=== PATIENT | female | born 1970 | race Caucasian/White ===

== ENCOUNTER 2017-10-15 15:53 | Emergency (ER) | payer OTHER ==
--- OUTSIDE RECORDS SUMMARY | 2017-10-15 15:55 | XMS REPORT ---
:1970 [facility] [address] [place] [address] Care Team Providers Name Role Phone DR EDGARD CASH Unavailable Unavailable BLAKE ALLEN - Unavailable Unavailable RADHA DELVALLE Unavailable Unavailable Problems This patient has no known problems. Allergies, Adverse Reactions, Alerts This patient has no known allergies or adverse reactions. Medications This patient has no known medications. Encounters Start End Encounter Admission Attending Care Care Encounter Date/Time Date/Time Type Type Clinicians Facility Department ID 2016-11-04 Inpatient C NARESH CASH [facility] [id number] 09:30:00 EDGARD 2016-07-15 2016-07-19 Inpatient 1 HARSHIL ALLEN [facility] [id number] 18:47:00 10:30:00 BLAKE 2013-11-19 2013-11-19 Emergency E MOOK [facility] [id number] 10:08:00 12:55:00 RADHA Results Test Description Test Time Test Comments Text Results Atomic Results Result Comments CT ABDOMEN/PELVIS WITH 2016-07-26 14:26:[address] [id number] IMAGING REPORTPatient Name: Manuel DEL TORO of Service: [id number]: 45 Sex: F Order #: [id number] Room: ERSDOB: 1970 X-Ray Number: [id number] Record Number: [id number] Hospital Number: [id number] Physician: KISHAN MUNOZ -Ordering Physician: HERNANDEZ MONTEMAYOR ABDOMEN AND PELVIS WITH CONTRAST:CLINICAL HISTORY: Left-sided abdominal pain for 2 weeks; nausea andvomiting; history of bowel resection and hysterectomy; pain pumpTECHNIQUE: Examination is performed following intravenous administration of100 mL of Isovue-300. 4 mm axial sections were obtained with coronal andsagittal reconstructions. The GFR is 115 .FINDINGS: Lung bases are clear although they're mildly hyperinflated.The enhanced liver, spleen, pancreas and adrenal glands are unremarkable.There is bilateral unobstructed renal function noted as seen previously. Aprominent cyst in the left kidney.There are clips in the gallbladder fossa consistent with the previouscholecystectomy.There are postoperative changes seen in the right lower quadrant near thececum. Fluid and fecal material are seen in the ascending colon. This isnonspecific.The bowel loops are unobstructed.The focal wall thickening of the descending colon noted on 16 July 2016has resolved in the interval.Impression:1. No acute changes are demonstrated.2. The changes of colitis noted on 16 July 2016 in the descending colonhave resolved in the interval.Electronically Signed By: Santiago Alonzo M.D., 07/26/2016 2:23 PMLegally authenticated by TIFFANIE Syed 2016-07-26 14:23:48 CT ABDOMEN/PELVIS 2016-07-17 02:49:00 [address] IMAG[address] REPORTPatient Name: Manuel DEL TORO of Service: [id number]: 45 Sex: F Order #: [id number] Room: [facility] 2NEDOB: 1970 X-Ray Number: [id number] Record Number: [id number] Hospital Number: [id number] Physician: BLAKE ALLEN -Ordering Physician: AURORA LOWERY abdomen and pelvis without IV contrast, with GI contrast 1842 hours07/16/2016HISTORY: Abdominal pain with nausea, history of Crohn's disease, multipleprior surgeriesCOMPARISON: NoneFINDINGS: Evaluation is limited and difficult.Minimal scattered free fluid is present. There may be mildscattered/diffuse mesenteric edema. There is no free air. There is no bowelobstruction. Mild/moderate colonic wall thickening is present, mainlyinvolving descending and sigmoid colon, suggesting colitis. No abscess isseen. Much of the small bowel has been removed.There is no urinary dilation. The gallbladder is absent there is anabdominal wall pain pump. Liver and spleen are normal size.IMPRESSION:1. Minimal free fluid, a nonspecific finding2. There is distal colitis. The appearance is nonspecific.Electronically Signed By: Sylvain Galo M.D., 07/17/2016 2:47 AMLegally authenticated by MARTINEZ VALDEZ 2016-07-17 02:47:19 ABDOMEN 2 VIEWS 2016-07-15 12:14:[address] [id number] IMAGING REPORTPatient Name: Manuel DEL TORO of Service: [id number]: 45 Sex: F Order #: [id number] [facility] 1970 [facility] Number: [id number] Record Number: [id number] Hospital Number: [id number] Physician: Austin TEJEDA Physician: Elvis GARCIA 2 views 07/15/2016 at 11:40 AM.History: 45-year-old female. Abdominal pain. Left upper quadrant pain.History of Crohn's disease. Previous cholecystectomy, hysterectomy andintestinal surgery.Comparison: No comparison exam is available.Findings:A total of 4 images are submitted.There are cholecystectomy clips in the right upper quadrant. There is anintrathecal catheter with a reservoir projecting over the right ilium.There is very little feces in the colon. There are several loops ofair-filled, mildly prominent small bowel with a few air-fluid levels. Thisis probably related to ileus but recommend follow-up to rule out adeveloping obstruction. There are calcifications but they are felt to bevascular. The regional skeleton is intact. The lung bases are clear.Impression:1. Probable ileus.2. However, recommend follow-up as clinically warranted to rule out adeveloping obstruction.Electronically Signed By: Raymond James M.D., 07/15/2016 12:12 PMLegally authenticated by RAFA GALVAN 2016-07-15 12:12:28
--- OUTSIDE RECORDS SUMMARY | 2017-10-15 15:55 | XMS REPORT | Clinical Summary ---
:1970 Author Organization [facility] Address [address] [place] [address] Care Team Providers Name Role Phone Eryn Wall MD Primary Care Provider Allergies Active Allergy Reactions Severity Noted Date Comments Ciprofloxacin Swelling Medium 07/18/2017 Promethazine Other (See Comments) 07/18/2017 Face twitch Current Medications Prescription Sig. Disp. Refills Start Date End Date Status pantoprazole Take 40 mg by Active (PROTONIX) 40 MG EC mouth daily. tablet budesonide (UCERIS) Take 9 mg by Active 9 mg tablet, delayed mouth daily as & ext.release needed. methocarbamol Take 500 mg by Active (ROBAXIN) 500 MG mouth every 6 tablet (six) hours. mesalamine (LIALDA) Take 1.2 g by Discontinued 1.2 gram EC tablet mouth daily 8 with breakfast. 2 tablets by mouth metroNIDAZOLE Take 1 tablet 30 tablet 0 07/21/2017 (FLAGYL) 500 MG (500 mg total) 8 tablet by mouth 3 (three) times a day for 10 days. metroNIDAZOLE Take 500 mg by Discontinued (FLAGYL) 500 MG mouth 3 8 tablet (three) times a day. LORAZepam (ATIVAN) 1 Take 1 mg by Discontinued MG tablet mouth 2 (two) 8 times a day as needed for anxiety. LORAZepam (ATIVAN) 1 Take 1 tablet 20 tablet 0 08/22/2017 MG tablet (1 mg total) 8 by mouth every 6 (six) hours as needed for anxiety for up to 20 doses. mesalamine (LIALDA) Take 2 tablets 60 tablet 0 08/23/2017 1.2 gram EC tablet (2.4 g total) 8 by mouth daily with breakfast for 30 days. prednisoLONE ODT Take 4 tablets 112 tablet 0 08/22/2017 (ORAPRED ODT) 10 MG (40 mg total) 8 disintegrating by mouth 2 tablet (two) times a day for 14 days. Active Problems Problem Noted Date Abdominal pain 08/19/2017 Small bowel obstruction 08/14/2017 Colitis presumed infectious 07/19/2017 Encounters Date Type Specialty Care Team Description 08/19/2017 - Hospital Encounter General Internal Eryn Wall 08/22/2017 Raz Mchugh MD 08/14/2017 - Hospital Encounter General Internal Eryn Wlal Small bowel 08/18/2017 Raz Mchugh MD obstruction (Primary Dx) 07/18/2017 - Hospital Encounter General Internal Eryn Wall Colitis presumed 07/21/2017 Raz Mchugh MD infectious (Primary Dx) after 10/14/2016 Social History Tobacco Use Types Packs/Day Years Used Date Never Smoker Smokeless Tobacco: Never Used Alcohol Use Drinks/Week oz/Week Comments No Sex Assigned at Date Recorded Not on file Last Filed Vital Signs Vital Sign Reading Time Taken Blood Pressure 134/83 08/22/2017 11:30 AM CDT Pulse 82 08/22/2017 11:30 AM CDT Temperature 36.9 C (98.5 F) 08/22/2017 11:30 AM CDT Respiratory Rate 18 08/22/2017 11:30 AM CDT Oxygen Saturation 97% 08/22/2017 11:30 AM CDT Inhaled Oxygen Concentration - - Weight 52.2 kg (115 lb) 08/22/2017 4:54 AM CDT Height 158.8 cm (5' 2.5") 08/16/2017 8:32 AM CDT Body Mass Index 20.7 08/22/2017 4:54 AM CDT Plan of Treatment Health Maintenance Due Date Last Done Comments CERVICAL CANCER SCREENING 09/13/1992 INFLUENZA VACCINE 11/29/2017 Implants Implanted Type Area Shirring Tender Device Identifier Expiration Date Model / Serial / Lot Pain Pump-07/18/2009 Implanted: 07/18/2009 (Quantity not on file) Procedures Procedure Name Priority Date/Time Associated Comments Diagnosis ESTIMATED GFR Routine 08/22/2017 5:35 Results for this AM CDT procedure are in the results section. MAGNESIUM LEVEL Routine 08/22/2017 5:35 Results for this AM CDT procedure are in the results section. COMPREHENSIVE METABOLIC Routine 08/22/2017 5:35 Results for this PANEL AM CDT procedure are in the results section. HC COMPLETE BLD COUNT Routine 08/22/2017 5:35 Results for this W/AUTO DIFF AM CDT procedure are in the results section. ESTIMATED GFR Routine 08/21/2017 4:10 Results for this AM CDT procedure are in the results section. CRP HIGH SENSITIVITY Routine 08/21/2017 4:10 Results for this AM CDT procedure are in the results section. SEDIMENTATION RATE Routine 08/21/2017 4:10 Results for this AM CDT procedure are in the results section. BASIC METABOLIC PANEL Routine 08/21/2017 4:10 Results for this AM CDT procedure are in the results section. ESTIMATED GFR Routine 08/18/2017 3:50 Results for this AM CDT procedure are in the results section. BASIC METABOLIC PANEL Routine 08/18/2017 3:50 Results for this AM CDT procedure are in the results section. OCCULT BLOOD, STOOL Routine 08/17/2017 9:30 Results for this AM CDT procedure are in the results section. ESTIMATED GFR Routine 08/17/2017 3:50 Results for this AM CDT procedure are in the results section. MAGNESIUM LEVEL Routine 08/17/2017 3:50 Results for this AM CDT procedure are in the results section. COMPREHENSIVE METABOLIC Routine 08/17/2017 3:50 Results for this PANEL AM CDT procedure are in the results section. HC COMPLETE BLD COUNT Routine 08/17/2017 3:50 Results for this W/AUTO DIFF AM CDT procedure are in the results section. XR ABDOMEN 1 VW Routine 08/16/2017 12:25 Results for this PM CDT procedure are in the results section. ESTIMATED GFR Routine 08/16/2017 5:30 Results for this AM CDT procedure are in the results section. MAGNESIUM LEVEL Routine 08/16/2017 5:30 Results for this AM CDT procedure are in the results section. COMPREHENSIVE METABOLIC Routine 08/16/2017 5:30 Results for this PANEL AM CDT procedure are in the results section. HC COMPLETE BLD COUNT Routine 08/16/2017 5:30 Results for this W/AUTO DIFF AM CDT procedure are in the results section. ESTIMATED GFR Routine 08/15/2017 5:20 Results for this AM CDT procedure are in the results section. COMPREHENSIVE METABOLIC Routine 08/15/2017 5:20 Results for this PANEL AM CDT procedure are in the results section. HC COMPLETE BLD COUNT Routine 08/15/2017 5:20 Results for this W/AUTO DIFF AM CDT procedure are in the results section. GASTROINTESTINAL PANEL Routine 08/15/2017 3:40 Results for this AM CDT procedure are in the results section. ESTIMATED GFR Routine 07/21/2017 3:53 Results for this AM CDT procedure are in the results section. BASIC METABOLIC PANEL Routine 07/21/2017 3:53 Results for this AM CDT procedure are in the results section. HC COMPLETE BLD COUNT Routine 07/21/2017 3:53 Results for this W/AUTO DIFF AM CDT procedure are in the results section. CLOSTRIDIUM DIFFICILE Routine 07/19/2017 7:50 Results for this TOXIN PM CDT procedure are in the results section. C-REACTIVE PROTEIN Routine 07/19/2017 10:08 Results for this AM CDT procedure are in the results section. SEDIMENTATION RATE Routine 07/19/2017 10:08 Results for this AM CDT procedure are in the results section. ESTIMATED GFR Routine 07/19/2017 5:30 Results for this AM CDT procedure are in the results section. HC COMPLETE BLD COUNT Routine 07/19/2017 5:30 Results for this W/AUTO DIFF AM CDT procedure are in the results section. BASIC METABOLIC PANEL Routine 07/19/2017 5:30 Results for this AM CDT procedure are in the results section. after 10/14/2016 Results Estimated GFR (08/22/2017 5:35 AM)Only the most recent of8 resultswithin the time period is included. GFR Non Af Amer >90 mL/min/1.73 m2 [facility] DEPARTMENT OF PATHOLOGY AND GENOMIC MEDICINE GFR Af Amer >90 mL/min/1.73 m2 [facility] DEPARTMENT OF Comment: PATHOLOGY AND GENOMIC Chronic kidney disease: <60 mL/min/1.73m2 MEDICINE Kidney failure: <15 mL/min/1.73m2 The estimated GFR is calculated from the IDMS-traceable Modification of Diet in Renal Disease Equation. The accuracy of the calculation is poor when the creatinine is normal. Calculated values >90 mL/min/1.73m2 are not reported. This equation has not been validated in children (<18 years), women, the elderly (>70 years), or ethnic groups other than Caucasians and Americans. Specimen Plasma specimen Performing Organization Address City/State/Zipcode Phone Number [facility] DEPARTMENT OF PATHOLOGY [address] [place] [phone] AND [employer] [facility] CBC with platelet and differential (08/22/2017 5:35 AM)Only the most recent of6 resultswithin the time period is included. WBC 7.1 4.5 - 11.0 k/uL [facility] DEPARTMENT OF PATHOLOGY AND GENOMIC MEDICINE RBC 3.78 (L) 4.20 - 5.50 m/uL [facility] DEPARTMENT OF PATHOLOGY AND GENOMIC MEDICINE HGB 11.9 (L) 12.0 - 16.0 g/dL [facility] DEPARTMENT OF PATHOLOGY AND GENOMIC MEDICINE HCT 35.9 (L) 37.0 - 47.0 % [facility] DEPARTMENT OF PATHOLOGY AND GENOMIC MEDICINE MCV 95.0 82.0 - 100.0 fL [facility] DEPARTMENT OF PATHOLOGY AND GENOMIC MEDICINE MCH 31.5 27.0 - 34.0 pg [facility] DEPARTMENT OF PATHOLOGY AND GENOMIC MEDICINE MCHC 33.1 31.0 - 37.0 g/dL [facility] DEPARTMENT OF PATHOLOGY AND GENOMIC MEDICINE RDW - SD 43.0 37.0 - 55.0 fL [facility] DEPARTMENT OF PATHOLOGY AND GENOMIC MEDICINE MPV 9.3 6.9 - 11.0 fL [facility] DEPARTMENT OF PATHOLOGY AND GENOMIC MEDICINE Platelet count 230 150 - 400 K/uL [facility] DEPARTMENT OF PATHOLOGY AND GENOMIC MEDICINE Nucleated RBC 0.00 /100 WBC [facility] DEPARTMENT OF PATHOLOGY AND GENOMIC MEDICINE Neutrophils 77.2 (H) 39.0 - 69.0 % [facility] DEPARTMENT OF PATHOLOGY AND GENOMIC MEDICINE Lymphocytes 18.6 (L) 25.0 - 45.0 % [facility] DEPARTMENT OF PATHOLOGY AND GENOMIC MEDICINE Monocytes 3.8 0.0 - 10.0 % [facility] DEPARTMENT OF PATHOLOGY AND GENOMIC MEDICINE Eosinophils 0.0 0.0 - 5.0 % [facility] DEPARTMENT OF PATHOLOGY AND GENOMIC MEDICINE Basophils 0.1 0.0 - 1.0 % [facility] DEPARTMENT OF PATHOLOGY AND GENOMIC MEDICINE Immature granulocytes 0.3 0.0 - 1.0 % [facility] DEPARTMENT OF PATHOLOGY AND GENOMIC MEDICINE Specimen Blood Performing Organization Address City/State/Zipcode Phone Number [facility] DEPARTMENT OF PATHOLOGY [address] [place] [address] AND [facility] Magnesium level (08/22/2017 5:35 AM)Only the most recent of3 resultswithin the time period is included. Magnesium 1.8 1.6 - 2.6 mg/dL [facility] DEPARTMENT OF PATHOLOGY AND GENOMIC MEDICINE Specimen Plasma specimen Performing Organization Address City/State/Zipcode Phone Number [facility] DEPARTMENT OF PATHOLOGY [address] [place] [address] AND [employer] [facility] Comprehensive metabolic panel (08/22/2017 5:35 AM)Only the most recent of4 resultswithin the time period is included. Sodium 141 135 - 148 mEq/L [facility] DEPARTMENT OF PATHOLOGY AND GENOMIC MEDICINE Potassium 4.2 3.5 - 5.0 mEq/L [facility] DEPARTMENT OF PATHOLOGY AND GENOMIC MEDICINE Chloride 101 98 - 112 mEq/L [facility] DEPARTMENT OF PATHOLOGY AND GENOMIC MEDICINE CO2 26 24 - 31 mEq/L [facility] DEPARTMENT OF PATHOLOGY AND GENOMIC MEDICINE Anion gap 14 7 - 15 mEq/L [facility] DEPARTMENT OF Comment: PATHOLOGY AND GENOMIC Starting from July , anion gap calculation MEDICINE no longer incorporates potassium. Please note the change. BUN 8 6 - 20 mg/dL [facility] DEPARTMENT OF PATHOLOGY AND GENOMIC MEDICINE Creatinine 0.6 0.5 - 0.9 mg/dL [facility] DEPARTMENT OF PATHOLOGY AND GENOMIC MEDICINE Glucose 119 (H) 65 - 99 mg/dL [facility] DEPARTMENT OF PATHOLOGY AND GENOMIC MEDICINE Calcium 8.9 8.3 - 10.2 mg/dL [facility] DEPARTMENT OF PATHOLOGY AND GENOMIC MEDICINE Protein 6.2 (L) 6.3 - 8.3 g/dL [facility] DEPARTMENT OF PATHOLOGY AND GENOMIC MEDICINE Albumin 3.6 3.5 - 5.0 g/dL [facility] DEPARTMENT OF PATHOLOGY AND GENOMIC MEDICINE A/G ratio 1.4 0.7 - 3.8 [facility] DEPARTMENT OF PATHOLOGY AND GENOMIC MEDICINE Alkaline phosphatase 63 35 - 104 U/L [facility] DEPARTMENT OF PATHOLOGY AND GENOMIC MEDICINE AST 22 10 - 35 U/L [facility] DEPARTMENT OF PATHOLOGY AND GENOMIC MEDICINE ALT 44 5 - 50 U/L [facility] DEPARTMENT OF PATHOLOGY AND GENOMIC MEDICINE Total bilirubin <0.2 0.2 - 1.2 mg/dL [facility] DEPARTMENT OF PATHOLOGY AND GENOMIC MEDICINE Specimen Plasma specimen Performing Organization Address City/State/Zipcode Phone Number [facility] DEPARTMENT OF PATHOLOGY [address] [place] [address] AND [employer] MEDICINE Sedimentation rate (08/21/2017 4:10 AM)Only the most recent of2 resultswithin the time period is included. Sedimentation rate 21 (H) 0 - 20 mm/hr [facility] DEPARTMENT OF PATHOLOGY AND GENOMIC MEDICINE Specimen Blood Performing Organization Address City/State/Zipcode Phone Number [facility] DEPARTMENT OF PATHOLOGY [address] [place] [address] AND [facility] CRP high sensitivity (08/21/2017 4:10 AM) CRP, high sensitivity 0.47 mg/L [facility] DEPARTMENT OF Comment: PATHOLOGY AND [facility] Please note this test is different from the C-Reactive Protein MEDICINE (CRP) assay. CRP is a nonspecific marker of inflammation and its levels rise in the presence of conditions such as infection and inflammatory disorders. Persistent low levels of CRP can be measured with a high-sensitivity assay (hsCRP) andare associated with increased risks for atherosclerotic diseases. High-Sensitivity CRP (hsCRP) results are used to assign risk for stroke, acute myocardial infarction and peripheral vascular disease as follows: Low risk: < 1.00 mg/L Average risk: 1.00 - 3.00 mg/L High risk: > 3.00 - 10.00 mg/L Indeterminate: > 10.00 mg/L * *May be indicative of another source of inflammation or infection Specimen Plasma specimen Performing Organization Address City/State/Zipcode Phone Number [facility] DEPARTMENT OF PATHOLOGY AND [address] [place] [address] [facility] Basic metabolic panel (08/21/2017 4:10 AM)Only the most recent of4 resultswithin the time period is included. Sodium 143 135 - 148 mEq/L [facility] DEPARTMENT OF PATHOLOGY AND GENOMIC MEDICINE Potassium 3.8 3.5 - 5.0 mEq/L [facility] DEPARTMENT OF PATHOLOGY AND GENOMIC MEDICINE Chloride 106 98 - 112 mEq/L [facility] DEPARTMENT OF PATHOLOGY AND GENOMIC MEDICINE CO2 26 24 - 31 mEq/L [facility] DEPARTMENT OF PATHOLOGY AND GENOMIC MEDICINE Anion gap 11 7 - 15 mEq/L [facility] DEPARTMENT OF Comment: PATHOLOGY AND GENOMIC Starting from July , anion gap calculation MEDICINE no longer incorporates potassium. Please note the change. BUN <4 (L) 6 - 20 mg/dL [facility] DEPARTMENT OF PATHOLOGY AND GENOMIC MEDICINE Creatinine 0.6 0.5 - 0.9 mg/dL [facility] DEPARTMENT OF PATHOLOGY AND GENOMIC MEDICINE Glucose 105 (H) 65 - 99 mg/dL [facility] DEPARTMENT OF PATHOLOGY AND GENOMIC MEDICINE Calcium 9.1 8.3 - 10.2 mg/dL [facility] DEPARTMENT OF PATHOLOGY AND GENOMIC MEDICINE Specimen Plasma specimen Performing Organization Address City/[facility]/Zipcode Phone Number [facility] DEPARTMENT OF PATHOLOGY [address] [place] [address] AND [employer] MEDICINE Occult blood, stool (08/17/2017 9:30 AM) Occult blood, stool Negative for occult blood. [facility] DEPARTMENT OF Comment: PATHOLOGY AND GENOMIC Specimen Information MEDICINE Specimen Source: Stool Specimen Site: Nonpreserved Specimen Stool - Nonpreserved Performing Organization Address City/[facility] Cent[facility]ode Phone Number [facility] DEPARTMENT OF PATHOLOGY [address] [place] [id number] AND [employer] MEDICINE XR Abdomen 1 Vw (08/16/2017 12:25 PM) Narrative Performed At EXAMINATION:XR ABDOMEN 1 VW RADIANT CLINICAL HISTORY:Bowel obstruction COMPARISON:None. IMPRESSION: Loops of dilated small bowel compatible with an ileus versus partial small bowel obstruction A spinal stimulator pump projects over the right lower quadrant The gallbladder has been removed Bony structures are within normal limits [id number] Procedure Note Interface, Radiology Results Incoming - 08/16/2017 1:04 PM CDT EXAMINATION: XR ABDOMEN 1 VW CLINICAL HISTORY: Bowel obstruction COMPARISON: None. IMPRESSION: Loops of dilated small bowel compatible with an ileus versus partial small bowel obstruction A spinal stimulator pump projects over the right lower quadrant The gallbladder has been removed Bony structures are within normal limits [id number] Performing Organization Address City/[facility]/Zipcode Phone Number [facility] [address] [place] [address] Gastrointestinal panel (08/15/2017 3:40 AM) Gastrointestinal panel Negative for all pathogens tested: [facility] DEPARTMENT OF Negative for Salmonella PATHOLOGY AND GENOMIC Negative for Campylobacter MEDICINE Negative for Diarrheagenic E coli/Shigella Negative for Shiga-like toxin-producing E coli Negative for Plesiomonas shigelloides Negative for Yersinia enterocolitica Negative for Vibrio species Negative for Clostridium difficile (Toxin A/B) Negative for Cryptosporidium Negative for Giardia lamblia Negative for Cyclospora cayeteanensis Negative for Entamoeba histolytica Negative for Adenovirus F 40/41 Negative for Astrovirus Negative for Norovirus GI/GII Negative for Rotavirus A Negative for Sapovirus Negative for Clostridium difficile toxin Negative for E coli 0157 This real-time PCR assay detects the presence of nucleic acids (RNA or DNA) for the gastrointestinal pathogens listed. A result of "Not-detected" does not exclude the possibility of the presence of one or more pathogens at concentrations less than the detectable limits of the assay. Comment: Specimen Information Specimen Source: Stool Specimen Site: Nonpreserved Specimen Stool - Nonpreserved Performing Organization Address City/[facility] Cent[facility]ode Phone Number [facility] DEPARTMENT OF PATHOLOGY AND [address] [place] [phone] GENOMIC MEDICINE C difficile toxin (07/19/2017 7:50 PM) Clostridium difficile No Clostridium difficle toxin present [facility] DEPARTMENT OF toxin Comment: PATHOLOGY AND GENOMIC Specimen Information MEDICINE Specimen Source: Stool Specimen Site: Nonpreserved Specimen Stool - Nonpreserved Performing Organization Address [facility] Centercohi Phone Number [facility] DEPARTMENT OF PATHOLOGY AND [address] [place] [phone] GENOMIC MEDICINE C-reactive protein (07/19/2017 10:08 AM) CRP <0.30 0.00 - 0.50 mg/dL [facility] DEPARTMENT OF PATHOLOGY AND GENOMIC MEDICINE Specimen Plasma specimen Performing Organization Address [facility] Phone Number [facility] DEPARTMENT OF PATHOLOGY AND [address] [place] [phone] GENOMIC MEDICINE after 10/14/2016 Insurance Payer Benefit Plan / Group Subscriber ID Type Phone Address MEDICARE MEDICARE PART A AND B xxxxxxxxxx Medicare [place], [place] MEDICAID MEDICAID xxxxxxxxx Medicaid Home: [address] [phone] [place], [place] [address]
[2017-10-15] MEDS ORDERED: NA CHLORIDE 0.9% 1,000 ML ONE (16:53)
[2017-10-15] MEDS ORDERED: ONDANSETRON 4 MG/2 ML VIAL ONE (16:53)
[2017-10-15 17:02] LABS: Absolute Lymphocytes (CBC) 2.9 K/uL (0.7-4.9); Absolute Monocytes 0.6 K/uL (0.1-1.3); Absolute Neutrophil 4.6 K/uL (1.8-8.0); Basophils % 0.6 % (0-1.3); Eosinophils % 5.1 % (0-4.4); Hematocrit 39.2 % (36.0-45.0); Lymphocytes % 33.9 % (15.3-44.8); MCH 31.8 pg (27.0-35.0); MCV 93.3 fL (80-100); MPV 6.7 fL (7.6-11.3); Monocytes % 6.4 % (3.3-12.3)
[2017-10-15] MEDS ORDERED: KETOROLAC 30 MG/ML INJ ONE (17:19)
[2017-10-15 17:21] LABS: Albumin 3.7 g/dL (3.2-5.5); Bilirubin Direct 0.1 mg/dL (0-0.2); Bilirubin Total 0.4 mg/dL (0.3-1.2); Potassium 4.2 mEq/L (3.6-5.0); Protein, Total 6.4 g/dL (6.0-8.3)
--- NOTE | 2017-10-15 17:23 | EDPHYS ---
Physician Documentation [facility] Name: Angela Rodriguez Age: 47 yrs Sex: Female : 1970 Arrival Date: 10/15/2017 Time: 15:57 Bed 26 Private MD: out of town, doctor ED Physician Jake Mg HPI: 10/15 17:24 This 47 yrs old Female presents to ER via Ambulatory with complaints of gs Chron's Problem. 17:24 The patient presents with abdominal pain. Onset: The symptoms/episode began/occurred 5 gs day(s) ago. The symptoms do not radiate. Associated signs and symptoms: Pertinent positives: nausea. The symptoms are described as crampy. Modifying factors: The symptoms are alleviated by nothing, the symptoms are aggravated by nothing. Severity of pain: At its worst the pain was moderate in the emergency department the pain is unchanged. The patient has experienced similar episodes in the past, chronically. The patient has not recently seen a physician. Historical: - Allergies: 16:19 Ciprofloxacin; rk2 16:19 Phenergan; rk2 - PMHx: 16:19 Chronic pain; Bipolar disorder; Crohn's; Endometrosis; Hypothyroidism; Seizures; rk2 - Immunization history:: Last tetanus immunization: up to date Pneumococcal vaccine is not up to date, Flu vaccine is up to date. - Social history:: Smoking status: Patient uses tobacco products, smokes one pack cigarettes per day. - Ebola Screening: : Patient negative for fever greater than or equal to 101.5 degrees Fahrenheit, and additional compatible Ebola Virus Disease symptoms. ROS: 17:24 All other systems are negative. gs Exam: 17:24 Head/Face: Normocephalic, atraumatic. Eyes: Pupils equal round and reactive to light, gs extra-ocular motions intact. Lids and lashes normal. Conjunctiva and sclera are non-icteric and not injected. Cornea within normal limits. Periorbital areas with no swelling, redness, or edema. ENT: Nares patent. No nasal discharge, no septal abnormalities noted. Tympanic membranes are normal and external auditory canals are clear. Oropharynx with no redness, swelling, or masses, exudates, or evidence of obstruction, uvula midline. Mucous membranes moist. Neck: Trachea midline, no thyromegaly or masses palpated, and no cervical lymphadenopathy. Supple, full range of motion without nuchal rigidity, or vertebral point tenderness. No Meningismus. Chest/axilla: Normal chest wall appearance and motion. Nontender with no deformity. No lesions are appreciated. Cardiovascular: Regular rate and rhythm with a normal S1 and S2. No gallops, murmurs, or rubs. Normal PMI, no JVD. No pulse deficits. Respiratory: Lungs have equal breath sounds bilaterally, clear to auscultation and percussion. No rales, rhonchi or wheezes noted. No increased work of breathing, no retractions or nasal flaring. Back: No spinal tenderness. No costovertebral tenderness. Full range of motion. Skin: Warm, dry with normal turgor. Normal color with no rashes, no lesions, and no evidence of cellulitis. MS/ Extremity: Pulses equal, no cyanosis. Neurovascular intact. Full, normal range of motion. Neuro: Awake and alert, GCS 15, oriented to person, place, time, and situation. Cranial nerves II-XII grossly intact. Motor strength 5/5 in all extremities. Sensory grossly intact. Cerebellar exam normal. Normal gait. 17:24 Constitutional: The patient appears in no acute distress, alert, awake. 17:24 Abdomen/GI: Inspection: distension, is not seen, scar(s), are noted in the right lower quadrant, Palpation: nontender, in all quadrants, rebound tenderness, is not appreciated, Hernia: not appreciated. Vital Signs: 16:19 BP 109 / 86; Pulse 92; Resp 18; Temp 99.0; Pulse Ox 99% ; rk2 MDM: 16:32 Patient medically screened. gs 17:24 Differential diagnosis: non-specific abd pain, pancreatitis, CHRONS FLARE , gs EXACERBATION OF CHRONIC AB PAIN. Data reviewed: vital signs, nurses notes. Counseling: I had a detailed discussion with the patient and/or guardian regarding: the historical points, exam findings, and any diagnostic results supporting the discharge/admit diagnosis. Response to treatment: There is no appreciated change of the patient's symptoms at this time. Physician consultation: Meliton Mock DO and will see patient in office, DISCUSSED PT, STATES SHE IS HAS CHRONIC AB PAIN AND IS PAIN PUMP, STATED HE DOES NOT GIVE HER ORAL MEDS DUE TO REPEATED FAILED DRUG TESTING. I DONT FEEL THIS IS NEW PAIN MY EXAM DIDN'T REVEAL ANY TENDERNESS, PT IS NOT VOMITING HAS NO GI BLEEDING. PT WANTS TO BE DISCHARGED. I WILL NOT PRESCRIBE OPIATES I FEEL THIS IS NONTHERAPEUTIC PRESCRIBING AT THIS TIME. HAVE CALL TO HER GI DOCTOR CHERELLE HE HAS NOT CALLED BACK PT WISHES NOT TO WAIT WILL FOLLOW UP. 10/15 16:36 Order name: Basic Metabolic Panel; Complete Time: 17:22 10/15 16:36 Order name: CBC with Diff; Complete Time: 17:15 10/15 16:36 Order name: Hepatic Function; Complete Time: 17:22 10/15 16:36 Order name: Lipase; Complete Time: 17:22 10/15 16:36 Order name: IV Saline Lock; Complete Time: 16:48 10/15 16:36 Order name: Labs collected and sent; Complete Time: 16:48 Administered Medications: 16:58 Drug: NS 0.9% 1000 ml Route: IV; Rate: 1 bolus; Site: left forearm; mb3 17:31 Follow up: Response: No adverse reaction; IV Status: Completed infusion; IV Intake: mb3 1000ml 16:58 Drug: Zofran 4 mg Route: IVP; Site: left forearm; mb3 17:32 Follow up: Response: No adverse reaction mb3 17:22 Drug: TORadol 15 mg Route: IVP; Site: left forearm; mb3 17:32 Follow up: Response: No adverse reaction mb3 Disposition: 10/15/17 17:23 Discharged to Home. Impression: Generalized abdominal pain. - Condition is Stable. - Discharge Instructions: Abdominal Pain, Adult, Crohn Disease. - Medication Reconciliation Form, Thank You Letter, Antibiotic Education, Prescription Opioid Use form. - Follow up: Addis Mora MD; When: 2 - 3 days; Reason: Re-evaluation by your physician. Signatures: Dispatcher [employer] EDNY Jake Mg MD MD Cece Alvarez RN RN rk2 Parish Hebert RN RN mb3 Corrections: (The following items were deleted from the chart) 17:38 17:23 10/15/2017 17:23 Discharged to Home. Impression: Generalized abdominal pain. mb3 Condition is Stable. Forms are Medication Reconciliation Form, Thank You Letter, Antibiotic Education, Prescription Opioid Use. Follow up: Nizam Meah; When: 2 - 3 days; Reason: Re-evaluation by your physician. gs
--- NOTE | 2017-10-15 17:23 | ER ---
Nurse's Notes [facility] Name: Angela Rodriguez Age: 47 yrs Sex: Female : 1970 Arrival Date: 10/15/2017 Time: 15:57 Bed 26 Private MD: out of town, doctor Diagnosis: Generalized abdominal pain Presentation: 10/15 16:17 Presenting complaint: Patient states: N/V/D onset this morning. Believes that she is rk2 having a chrons flair up. Transition of care: patient was not received from another setting of care. Onset of symptoms was October 15, 2017. Risk Assessment: Do you want to hurt yourself or someone else? Patient reports no desire to harm self or others. Initial Sepsis Screen: Does the patient meet any 2 criteria? No. Patient's initial sepsis screen is negative. Does the patient have a suspected source of infection? No. Patient's initial sepsis screen is negative. Care prior to arrival: None. 16:17 Method Of Arrival: Ambulatory rk2 16:17 Acuity: LIZZY 3 rk2 Historical: - Allergies: 16:19 Ciprofloxacin; rk2 16:19 Phenergan; rk2 - PMHx: 16:19 Chronic pain; Bipolar disorder; Crohn's; Endometrosis; Hypothyroidism; Seizures; rk2 - Immunization history:: Last tetanus immunization: up to date Pneumococcal vaccine is not up to date, Flu vaccine is up to date. - Social history:: Smoking status: Patient uses tobacco products, smokes one pack cigarettes per day. - Ebola Screening: : Patient negative for fever greater than or equal to 101.5 degrees Fahrenheit, and additional compatible Ebola Virus Disease symptoms. Screenin:19 Abuse screen: Denies threats or abuse. Nutritional screening: No deficits noted. mb3 Tuberculosis screening: No symptoms or risk factors identified. Fall Risk Fall in past 12 months (25 points). Secondary diagnosis (15 points) IV access (20 points). Ambulatory Aid- None/Bed Rest/Nurse Assist (0 pts). Gait- Normal/Bed Rest/Wheelchair (0 pts) Mental Status- Oriented to own ability (0 pts). Total Walters Fall Scale indicates High Risk Score (45 or more points). Fall prevention measures have been instituted. Side Rails Up X 2 Placed Close to Nursing Station Frequent Obs/Assessments Occuring Family Present and informed to notify staff if the need to leave the bedside As available patient and family educated on Fall Prevention Program and Strategies. Assessment: 17:07 General: Appears uncomfortable, slender, Behavior is cooperative, appropriate for age, mb3 crying. Pain: Complains of pain in abdomen Pain does not radiate. Pain currently is 9 out of 10 on a pain scale. Neuro: No deficits noted. Cardiovascular: No deficits noted. Respiratory: No deficits noted. GI: No deficits noted. No signs and/or symptoms were reported involving the gastrointestinal system. : No deficits noted. No signs and/or symptoms were reported regarding the genitourinary system. EENT: No deficits noted. No signs and/or symptoms were reported regarding the EENT system. Musculoskeletal: Reports pain, swelling and bruising present to right forearm from previous fall and fx, had surgery on Monday to fix, splint and sharon wrap in place, bruising present to elbow, and fingers swollen. 17:34 Reassessment: Pt was crying saying she was really hurting, informed Dr Mg, received mb3 order for IV toradol, after letting pt know I spoke with the doctor and administered the medication. Pt then came out to nurse station and said "if I'm going to be treated like a F drug addict I want to be discharged" Dr Mg informed. Received discharge orders for pt and discharged pt. Vital Signs: 16:19 BP 109 / 86; Pulse 92; Resp 18; Temp 99.0; Pulse Ox 99% ; rk2 ED Course: 15:57 Patient arrived in ED. sb2 15:58 out of town, doctor is Private Physician. sb2 16:15 Parish Hebert, ANANYA is Primary Nurse. mb3 16:18 Triage completed. rk2 16:21 Jake Mg MD is Attending Physician. gs 16:23 Inserted saline lock: 20 gauge in left forearm, using aseptic technique. Blood jb5 collected. 17:23 Addis Mora MD is Referral Physician. gs 17:34 No provider procedures requiring assistance completed. IV discontinued, intact, mb3 bleeding controlled, No redness/swelling at site. Pressure dressing applied. 17:38 Arm band placed on left wrist. mb3 17:38 Patient has correct armband on for positive identification. mb3 Administered Medications: 16:58 Drug: NS 0.9% 1000 ml Route: IV; Rate: 1 bolus; Site: left forearm; mb3 17:31 Follow up: Response: No adverse reaction; IV Status: Completed infusion; IV Intake: mb3 1000ml 16:58 Drug: Zofran 4 mg Route: IVP; Site: left forearm; mb3 17:32 Follow up: Response: No adverse reaction mb3 17:22 Drug: TORadol 15 mg Route: IVP; Site: left forearm; mb3 17:32 Follow up: Response: No adverse reaction mb3 Intake: 17:31 IV: 1000ml; Total: 1000ml. mb3 Outcome: 17:23 Discharge ordered by . 17:37 Discharged to home ambulatory, with family. mb3 17:37 Condition: stable 17:37 Discharge instructions given to patient, Instructed on discharge instructions, follow up and referral plans. Demonstrated understanding of instructions, follow-up care. 17:38 Patient left the ED. mb3 Signatures: Patricia Laughlin5 Jake Mg MD MD gs Kidder, Rhonda RN RN rk2 Marya Jackson 2 Parish Hebert, RN RN mb3
[2017-10-15 18:09] VITALS: BP 109/86; TEMP 99; O2SAT 99
== END 2017-10-15 17:38 | disposition home or self-care (01) ==
LOC: ER 15:53
DX: R10.84 Generalized abdominal pain (principal); K50.90 Crohn's disease, unspecified, without complications; Z88.1 Allergy status to other antibiotic agents; Z88.8 Allergy status to other drugs, medicaments and biological substances; F17.210 Nicotine dependence, cigarettes, uncomplicated
CPT/HCPCS: 36415; 80048; 80076; 83690; 85025; 96361; 96374; 96375; 99283; J2405; J7030

== ENCOUNTER 2017-11-07 16:21 | Emergency (ER) | payer OTHER ==
--- OUTSIDE RECORDS SUMMARY | 2017-11-07 16:24 | XMS REPORT ---
:1970 Author Organization [facility] Address [address] [place] [address] Care Team Providers Name Role Phone DR [...] Department ID 2016-11-04 Inpatient C NARESH CASH [facility] [id number] 09:30:00 EDGARD 2016-07-15 2016-07-19 Inpatient 1 HARSHIL ALLEN [facility] [id number] 18:47:00 10:30:00 BLAKE 2013-11-19 2013-11-19 Emergency E MOOK [facility] [id number] 10:08:00 12:55:00 RADHA Results Test Description Test Time Test Comments Text Results Atomic Results Result Comments CT ABDOMEN/PELVIS WITH 2016-07-26 14:26:[address] [id number] IMAGING REPORTPatient Name: Manuel DEL TORO of Service: [id number]: 45 Sex: F Order #: [id number] Room: ERSDOB: 1970 X-Ray Number: [id number] Record Number: [id number] Hospital Number: [id number] Physician: KISHAN MUNOZ -Ordering Physician: HERNANDEZ MONTEMAYOR [...] Syed 2016-07-26 14:23:48 CT ABDOMEN/PELVIS 2016-07-17 02:49:00 [address] REPORTPatient Name: Manuel DEL TORO of Service: [id number]: 45 Sex: F Order #: [id number] Room: [facility] 2NEDOB: 1970 X-Ray Number: [id number] Record Number: [id number] Hospital Number: [id number] Physician: BLAKE ALLEN -Ordering Physician: AURORA LOWERY [...] 2016-07-17 02:47:19 ABDOMEN 2 VIEWS 2016-07-15 12:14:[address] [id number] IMAGING REPORTPatient Name: Manuel DEL TORO of Service: [id number]: 45 Sex: F Order #: [id number] [facility] 1970 [facility] Number: [id number] Record Number: [id number] Hospital Number: [id number] Physician: Austin TEJEDA Physician: Elvis GARCIA 2 [...]
--- OUTSIDE RECORDS SUMMARY | 2017-11-07 16:24 | XMS REPORT | Clinical Summary ---
:1970 Author Organization [facility] Address [address] [place] [address] Care Team Providers Name Role Phone Eryn [...] 08/14/2017 - Hospital Encounter General Internal Eryn Wall Small bowel 08/18/2017 Rza Mchugh MD obstruction (Primary Dx) 07/18/2017 - Hospital Encounter General Internal Eryn Wall Colitis presumed 07/21/2017 Raz Mchugh MD infectious (Primary Dx) after 11/06/2016 Social History Tobacco Use Types Packs/Day Years [...] INFLUENZA VACCINE 11/29/2017 Implants Implanted Type Area Master Control Engineer Device Identifier Expiration Date Model / Serial [...] procedure are in the results section. after 11/06/2016 Results Estimated GFR (08/22/2017 5:35 AM)Only the most recent of8 resultswithin the time period is included. GFR Non Af Amer >90 mL/min/1.73 m2 [facility] DEPARTMENT OF PATHOLOGY AND GENOMIC MEDICINE GFR Af Amer >90 mL/min/1.73 m2 [facility] DEPARTMENT OF Comment: PATHOLOGY AND GENOMIC Chronic [...] specimen Performing Organization Address City/State/Zipcode Phone Number [facility] DEPARTMENT OF PATHOLOGY [address] [place] [phone] AND [employer] [facility] CBC with platelet and differential (08/22/2017 5:35 AM)Only the most recent of6 resultswithin the time period is included. WBC 7.1 4.5 - 11.0 k/uL [facility] DEPARTMENT OF PATHOLOGY AND GENOMIC MEDICINE RBC 3.78 (L) 4.20 - 5.50 m/uL [facility] DEPARTMENT OF PATHOLOGY AND GENOMIC MEDICINE HGB 11.9 (L) 12.0 - 16.0 g/dL [facility] DEPARTMENT OF PATHOLOGY AND GENOMIC MEDICINE HCT 35.9 (L) 37.0 - 47.0 % [facility] DEPARTMENT OF PATHOLOGY AND GENOMIC MEDICINE MCV 95.0 82.0 - 100.0 fL [facility] DEPARTMENT OF PATHOLOGY AND GENOMIC MEDICINE MCH 31.5 27.0 - 34.0 pg [facility] DEPARTMENT OF PATHOLOGY AND GENOMIC MEDICINE MCHC 33.1 31.0 - 37.0 g/dL [facility] DEPARTMENT OF PATHOLOGY AND GENOMIC MEDICINE RDW - SD 43.0 37.0 - 55.0 fL [facility] DEPARTMENT OF PATHOLOGY AND GENOMIC MEDICINE MPV 9.3 6.9 - 11.0 fL [facility] DEPARTMENT OF PATHOLOGY AND GENOMIC MEDICINE Platelet count 230 150 - 400 K/uL [facility] DEPARTMENT OF PATHOLOGY AND GENOMIC MEDICINE Nucleated RBC 0.00 /100 WBC [facility] DEPARTMENT OF PATHOLOGY AND GENOMIC MEDICINE Neutrophils 77.2 (H) 39.0 - 69.0 % [facility] DEPARTMENT OF PATHOLOGY AND GENOMIC MEDICINE Lymphocytes 18.6 (L) 25.0 - 45.0 % [facility] DEPARTMENT OF PATHOLOGY AND GENOMIC MEDICINE Monocytes 3.8 0.0 - 10.0 % [facility] DEPARTMENT OF PATHOLOGY AND GENOMIC MEDICINE Eosinophils 0.0 0.0 - 5.0 % [facility] DEPARTMENT OF PATHOLOGY AND GENOMIC MEDICINE Basophils 0.1 0.0 - 1.0 % [facility] DEPARTMENT OF PATHOLOGY AND GENOMIC MEDICINE Immature granulocytes 0.3 0.0 - 1.0 % [facility] DEPARTMENT OF PATHOLOGY AND GENOMIC MEDICINE Specimen Blood Performing Organization Address City/State/Zipcode Phone Number [facility] DEPARTMENT OF PATHOLOGY [address] [place] [address] AND [facility] Magnesium level (08/22/2017 5:35 AM)Only the most recent of3 resultswithin the time period is included. Magnesium 1.8 1.6 - 2.6 mg/dL [facility] DEPARTMENT OF PATHOLOGY AND GENOMIC MEDICINE Specimen Plasma specimen Performing Organization Address City/State/Zipcode Phone Number [facility] DEPARTMENT OF PATHOLOGY [address] [place] [address] AND [employer] [facility] Comprehensive metabolic panel (08/22/2017 5:35 AM)Only the most recent of4 resultswithin the time period is included. Sodium 141 135 - 148 mEq/L [facility] DEPARTMENT OF PATHOLOGY AND GENOMIC MEDICINE Potassium 4.2 3.5 - 5.0 mEq/L [facility] DEPARTMENT OF PATHOLOGY AND GENOMIC MEDICINE Chloride 101 98 - 112 mEq/L [facility] DEPARTMENT OF PATHOLOGY AND GENOMIC MEDICINE CO2 26 24 - 31 mEq/L [facility] DEPARTMENT OF PATHOLOGY AND GENOMIC MEDICINE Anion gap 14 7 - 15 mEq/L [facility] DEPARTMENT OF Comment: PATHOLOGY AND GENOMIC Starting from July , anion gap calculation MEDICINE no longer incorporates potassium. Please note the change. BUN 8 6 - 20 mg/dL [facility] DEPARTMENT OF PATHOLOGY AND GENOMIC MEDICINE Creatinine 0.6 0.5 - 0.9 mg/dL [facility] DEPARTMENT OF PATHOLOGY AND GENOMIC MEDICINE Glucose 119 (H) 65 - 99 mg/dL [facility] DEPARTMENT OF PATHOLOGY AND GENOMIC MEDICINE Calcium 8.9 8.3 - 10.2 mg/dL [facility] DEPARTMENT OF PATHOLOGY AND GENOMIC MEDICINE Protein 6.2 (L) 6.3 - 8.3 g/dL [facility] DEPARTMENT OF PATHOLOGY AND GENOMIC MEDICINE Albumin 3.6 3.5 - 5.0 g/dL [facility] DEPARTMENT OF PATHOLOGY AND GENOMIC MEDICINE A/G ratio 1.4 0.7 - 3.8 [facility] DEPARTMENT OF PATHOLOGY AND GENOMIC MEDICINE Alkaline phosphatase 63 35 - 104 U/L [facility] DEPARTMENT OF PATHOLOGY AND GENOMIC MEDICINE AST 22 10 - 35 U/L [facility] DEPARTMENT OF PATHOLOGY AND GENOMIC MEDICINE ALT 44 5 - 50 U/L [facility] DEPARTMENT OF PATHOLOGY AND GENOMIC MEDICINE Total bilirubin <0.2 0.2 - 1.2 mg/dL [facility] DEPARTMENT OF PATHOLOGY AND GENOMIC MEDICINE Specimen Plasma specimen Performing Organization Address City/State/Zipcode Phone Number [facility] DEPARTMENT OF PATHOLOGY [address] [place] [address] AND [employer] MEDICINE Sedimentation rate (08/21/2017 4:10 AM)Only the most recent of2 resultswithin the time period is included. Sedimentation rate 21 (H) 0 - 20 mm/hr [facility] DEPARTMENT OF PATHOLOGY AND GENOMIC MEDICINE Specimen Blood Performing Organization Address City/State/Zipcode Phone Number [facility] DEPARTMENT OF PATHOLOGY [address] [place] [address] AND [facility] CRP high sensitivity (08/21/2017 4:10 AM) CRP, high sensitivity 0.47 mg/L [facility] DEPARTMENT OF Comment: PATHOLOGY AND [facility] Please note this test is different from [...] specimen Performing Organization Address City/State/Zipcode Phone Number [facility] DEPARTMENT OF PATHOLOGY AND [address] [place] [address] [facility] Basic metabolic panel (08/21/2017 4:10 AM)Only the most recent of4 resultswithin the time period is included. Sodium 143 135 - 148 mEq/L [facility] DEPARTMENT OF PATHOLOGY AND GENOMIC MEDICINE Potassium 3.8 3.5 - 5.0 mEq/L [facility] DEPARTMENT OF PATHOLOGY AND GENOMIC MEDICINE Chloride 106 98 - 112 mEq/L [facility] DEPARTMENT OF PATHOLOGY AND GENOMIC MEDICINE CO2 26 24 - 31 mEq/L [facility] DEPARTMENT OF PATHOLOGY AND GENOMIC MEDICINE Anion gap 11 7 - 15 mEq/L [facility] DEPARTMENT OF Comment: PATHOLOGY AND GENOMIC Starting from July , anion gap calculation MEDICINE no longer incorporates potassium. Please note the change. BUN <4 (L) 6 - 20 mg/dL [facility] DEPARTMENT OF PATHOLOGY AND GENOMIC MEDICINE Creatinine 0.6 0.5 - 0.9 mg/dL [facility] DEPARTMENT OF PATHOLOGY AND GENOMIC MEDICINE Glucose 105 (H) 65 - 99 mg/dL [facility] DEPARTMENT OF PATHOLOGY AND GENOMIC MEDICINE Calcium 9.1 8.3 - 10.2 mg/dL [facility] DEPARTMENT OF PATHOLOGY AND GENOMIC MEDICINE Specimen Plasma specimen Performing Organization Address City/[facility]/Zipcode Phone Number [facility] DEPARTMENT OF PATHOLOGY [address] [place] [address] AND [employer] MEDICINE Occult blood, stool (08/17/2017 9:30 AM) Occult blood, stool Negative for occult blood. [facility] DEPARTMENT OF Comment: PATHOLOGY AND GENOMIC Specimen Information MEDICINE Specimen Source: Stool Specimen Site: Nonpreserved Specimen Stool - Nonpreserved Performing Organization Address City/[facility] Phone Number [facility] DEPARTMENT OF PATHOLOGY [address] [place] [phone] AND [employer] MEDICINE XR Abdomen 1 Vw (08/16/2017 12:25 PM) Narrative Performed At EXAMINATION:XR ABDOMEN 1 VW RADIANT CLINICAL HISTORY:Bowel obstruction COMPARISON:None. IMPRESSION: Loops of dilated small bowel compatible with an ileus versus partial small bowel obstruction A spinal stimulator pump projects over the right lower quadrant The gallbladder has been removed Bony structures are within normal limits [id number] Procedure Note Interface, Radiology Results Incoming - 08/16/2017 1:04 PM CDT EXAMINATION: XR ABDOMEN 1 VW CLINICAL HISTORY: Bowel obstruction COMPARISON: None. IMPRESSION: Loops of dilated small bowel compatible with an ileus versus partial small bowel obstruction A spinal stimulator pump projects over the right lower quadrant The gallbladder has been removed Bony structures are within normal limits [id number] Performing Organization Address City/[facility]/Zipcode Phone Number [facility] [address] [place] [address] Gastrointestinal panel (08/15/2017 3:40 AM) Gastrointestinal panel Negative for all pathogens tested: [facility] DEPARTMENT OF Negative for Salmonella PATHOLOGY [...] Specimen Stool - Nonpreserved Performing Organization Address City/[facility] Phone Number [facility] DEPARTMENT OF PATHOLOGY AND [address] [place] [phone] GENOMIC MEDICINE C difficile toxin (07/19/2017 7:50 PM) Clostridium difficile No Clostridium difficle toxin present [facility] DEPARTMENT OF toxin Comment: PATHOLOGY AND GENOMIC Specimen Information MEDICINE Specimen Source: Stool Specimen Site: Nonpreserved Specimen Stool - Nonpreserved Performing Organization Address [facility] Hospital[facility] Phone Number [facility] DEPARTMENT OF PATHOLOGY AND [address] [place] [phone] [facility] C-reactive protein (07/19/2017 10:08 AM) CRP <0.30 0.00 - 0.50 mg/dL [facility] DEPARTMENT OF PATHOLOGY AND GENOMIC MEDICINE Specimen Plasma specimen Performing Organization Address [facility] Phone Number [facility] DEPARTMENT OF PATHOLOGY AND [address] [place] [phone] GENOMIC MEDICINE after 11/06/2016 Insurance Payer Benefit Plan / Group Subscriber ID Type Phone Address MEDICARE MEDICARE PART A AND B xxxxxxxxxx Medicare [place], [place] MEDICAID MEDICAID xxxxxxxxx Medicaid Home: [address] [phone] [place], [place] [address]
[2017-11-07] MEDS ORDERED: METOCLOPRAMIDE 10 MG/2mL INJ ONE (17:41)
[2017-11-07] MEDS ORDERED: DIPHENHYDRAMINE 50 MG/ML VIAL ONE (17:42)
[2017-11-07] MEDS ORDERED: NA CHLORIDE 0.9% 1,000 ML ONE (17:42)
[2017-11-07] MEDS ORDERED: NA CHLORIDE 0.9% 100 ML IV ONE ×2 (17:42→17:43)
[2017-11-07] MEDS ORDERED: PANTOPRAZOLE 40 MG INJ ONE (17:42)
[2017-11-07 18:44] LABS: Absolute Monocytes 0.6 K/uL (0.1-1.3); Absolute Neutrophil 9.5 K/uL (1.8-8.0); Basophils % 0.3 % (0-1.3); Eosinophils % 3.5 % (0-4.4); Hematocrit 35.5 % (36.0-45.0); MCH 31.6 pg (27.0-35.0); MCV 93.5 fL (80-100); MPV 6.6 fL (7.6-11.3); Monocytes % 4.5 % (3.3-12.3)
[2017-11-07 19:02] LABS: ALT/SGPT 17 U/L (12-78); AST/SGOT 9 U/L (15-37); Albumin 3.6 g/dL (3.4-5.0); Alkaline Phosphatase 72 U/L (45-117); Amylase Level 52 U/L (25-115); BUN Blood Urea Nitrogen 8 mg/dL (7-18); Bicarbonate 26 mmol/L (21-32); Bilirubin Direct < 0.1 mg/dL (0-0.2); Bilirubin Total 0.3 mg/dL (0.2-1.0); Glucose Level 94 mg/dL (74-106); Lipase 278 U/L (73-393); Potassium 3.6 mmol/L (3.5-5.1); Protein, Total 6.7 g/dL (6.4-8.2); Sodium Level 146 mmol/L (136-145)
[2017-11-07] MEDS ORDERED: MORPHINE 4 MG/ML SYR ONE (19:08)
[2017-11-07 19:57] LABS: Urine Blood TRACE (NEG); Urine Glucose NEGATIVE (NEG); Urine Protein NEGATIVE (NEG); Urine Specific Gravity 1.015 (1.005-1.030)
[2017-11-07 19:57] LABS: Urine Bacteria <20 /HPF (<20); Urine Culture Reflex Order NOT NEEDED; Urine RBC <5 /HPF (NONE SEEN)
--- NOTE | 2017-11-07 20:38 | ER ---
Nurse's Notes [facility] Name: Angela Rodriguez Age: 47 yrs Sex: Female : 1970 Arrival Date: 11/07/2017 Time: 16:24 Bed 27 Private MD: out of town, doctor Diagnosis: Crohn's disease [regional enteritis] Presentation: 11/07 16:51 Presenting complaint: Patient states: Lower abdominal pain with nausea and vomiting aj since last night. HX of Crohn's. Transition of care: patient was not received from another setting of care. Onset of symptoms was November 06, 2017. Risk Assessment: Do you want to hurt yourself or someone else? Patient reports no desire to harm self or others. Initial Sepsis Screen: Does the patient meet any 2 criteria? No. Patient's initial sepsis screen is negative. Does the patient have a suspected source of infection? No. Patient's initial sepsis screen is negative. Care prior to arrival: None. 16:51 Method Of Arrival: Ambulatory aj 16:51 Acuity: LIZZY 3 aj Triage Assessment: 16:53 General: Appears in no apparent distress. comfortable, Behavior is calm, cooperative, aj appropriate for age. Pain: Complains of pain in right lower quadrant and left lower quadrant. Neuro: Level of Consciousness is awake, alert, obeys commands, Oriented to person, place, time, situation, Appropriate for age. Respiratory: Airway is patent Respiratory effort is even, unlabored, Respiratory pattern is regular, symmetrical. GI: Abdomen is flat, non-distended, Reports lower abdominal pain, nausea, vomiting. Derm: Skin is intact, is healthy with good turgor, Skin is pink, warm \T\ dry. normal. 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 - Social history:: Smoking status: Patient uses tobacco products, smokes one pack cigarettes per day. - Ebola Screening: : Patient negative for fever greater than or equal to 101.5 degrees Fahrenheit, and additional compatible Ebola Virus Disease symptoms Patient denies exposure to infectious person Patient denies travel to an Ebola-affected area in the 21 days before illness onset No symptoms or risks identified at this time. Screenin:53 Abuse screen: Denies threats or abuse. Denies injuries from another. Nutritional mg2 screening: No deficits noted. Tuberculosis screening: No symptoms or risk factors identified. Fall Risk Assessment: 19:30 General: Appears uncomfortable, Behavior is calm, cooperative. Pain: Complains of pain mg2 in abdomen and left lower quadrant and right lower quadrant Pain does not radiate. Pain currently is 8 out of 10 on a pain scale. Quality of pain is described as aching, Pain began gradually, Is intermittent. Musculoskeletal: No signs and/or symptoms reported regarding the musculoskeletal system. 20:22 Neuro: Level of Consciousness is awake, alert, obeys commands, Oriented to person, mg2 place, time. Cardiovascular: Capillary refill < 3 seconds Patient's skin is warm and dry. Respiratory: Airway is patent Respiratory effort is even, unlabored, Respiratory pattern is regular, symmetrical. GI: Abdomen is flat, non-distended, Bowel sounds present X 4 quads. Abd is soft X 4 quads. : No signs and/or symptoms were reported regarding the genitourinary system. EENT: No signs and/or symptoms were reported regarding the EENT system. Derm: Skin is intact, Skin is pink, warm \T\ dry. normal. Vital Signs: 16:53 BP 140 / 98; Pulse 90; Resp 16; Temp 98.4; Pulse Ox 98% on R/A; Weight 57.61 kg; Height aj 5 ft. 2 in. (157.48 cm); Pain 9/10; 20:21 BP 113 / 87; Pulse 62; Resp 18; Pulse Ox 98% ; Pain 0/10; mg2 16:53 Body Mass Index 23.23 (57.61 kg, 157.48 cm) ED Course: 16:24 Patient arrived in ED. mr 16:24 out of town, doctor is Private Physician. mr 16:52 Triage completed. aj 16:53 Arm band placed on left wrist. Patient placed in an exam room. aj 17:11 Luís Rahman RN is Primary Nurse. mg2 17:13 Jorge Alberto Jewell PA is PHCP. cp 17:13 Richy Mathew MD is Attending Physician. cp 18:40 PHCP role handed off by Jorge Alberto Jewell PA jrStephane 18:40 Stefano Trotter PA is PHCP. jr8 18:52 Inserted saline lock: 20 gauge in left EJ, using aseptic technique. Blood collected. mg2 18:57 Patient has correct armband on for positive identification. Placed in gown. Bed in low mg2 position. Side rails up X2. Pulse ox on. NIBP on. Door closed. 20:38 No provider procedures requiring assistance completed. IV discontinued, intact, mg2 bleeding controlled, No redness/swelling at site. Pressure dressing applied. Administered Medications: 18:41 Drug: Reglan 20 mg Route: IVP; Site: left jugular; kr2 20:25 Follow up: Response: No adverse reaction mg2 18:41 Drug: ProTONIX 40 mg Route: IVP; Site: left jugular; kr2 20:25 Follow up: Response: No adverse reaction mg2 18:42 Drug: NS 0.9% 1000 ml Route: IV; Rate: 1 bolus; Site: left jugular; kr2 20:26 Follow up: Response: No adverse reaction; IV Status: Completed infusion mg2 19:10 Drug: Benadryl 12.5 mg Route: IVP; Site: left jugular; mg2 20:25 Follow up: Response: No adverse reaction mg2 19:11 Drug: morphine 4 mg Route: IVP; Site: left jugular; mg2 20:25 Follow up: Response: No adverse reaction; Pain is decreased mg2 Outcome: 20:38 Discharge ordered by . jrStephane 20:53 Discharged to home ambulatory, with family. mg2 20:53 Condition: stable 20:53 Discharge instructions given to patient, family, Instructed on discharge instructions, follow up and referral plans. medication usage, Demonstrated understanding of instructions, follow-up care, medications, Prescriptions given X 5 20:54 Patient left the ED. mg2 Signatures: Cally Stanton RN RN aj Rivera, Maria mr Stefano Trotter PA PA jr8 Jorge Alberto Jewell PA PA cp Reaves, Karey, RN RN kr2 Gardose, Luís, RN RN mg2 Corrections: (The following items were deleted from the chart) 18:42 18:41 ProTONIX 40 mg IVP in left antecubital kr2 kr2
--- NOTE | 2017-11-07 20:39 | EDPHYS ---
Physician Documentation [facility] Name: Angela Rodriguez Age: 47 yrs Sex: Female : 1970 Arrival Date: 11/07/2017 Time: 16:24 Bed 27 Private MD: out of town, doctor ED Physician Richy Mathew HPI: 11/07 17:19 This 47 yrs old Female presents to ER via Ambulatory with complaints of cp Abdominal Pain. 17:19 The patient presents with abdominal pain in the lower abdomen. Onset: The cp symptoms/episode began/occurred last night. The symptoms do not radiate. Associated signs and symptoms: Pertinent positives: nausea and vomiting, diarrhea, Pertinent negatives: blood in stools, constipation, fever, vomiting blood. The patient has experienced similar episodes in the past, chronically. 17:19 Severity of pain: in the emergency department the pain is unchanged despite home cp interventions. 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 - Social history:: Smoking status: Patient uses tobacco products, smokes one pack cigarettes per day. - Ebola Screening: : Patient negative for fever greater than or equal to 101.5 degrees Fahrenheit, and additional compatible Ebola Virus Disease symptoms Patient denies exposure to infectious person Patient denies travel to an Ebola-affected area in the 21 days before illness onset No symptoms or risks identified at this time. ROS: 17:20 Constitutional: Negative for body aches, chills, fever, poor PO intake. cp 17:20 Eyes: Negative for injury, pain, redness, and discharge. cp 17:20 Respiratory: Negative for cough, shortness of breath, wheezing. 17:20 Abdomen/GI: Positive for abdominal pain, nausea and vomiting, diarrhea, Negative for constipation, hematemesis, black/tarry stool, rectal bleeding. 17:20 : Negative for urinary symptoms. 17:20 Neuro: Negative for altered mental status, dizziness, headache, weakness. 17:20 All other systems are negative. Exam: 17:21 Head/Face: Normocephalic, atraumatic. cp 17:21 Constitutional: The patient appears in no acute distress, alert, awake, non-toxic, well developed, well nourished. 17:21 Eyes: Periorbital structures: appear normal, Conjunctiva: normal, no exudate, no injection, Sclera: no appreciated abnormality, Lids and lashes: appear normal, bilaterally. 17:21 ENT: External ear(s): are unremarkable, Ear canal(s): are normal, clear, TM's: are normal, Nose: is normal, Mouth: Lips: moist, Oral mucosa: moist, Posterior pharynx: is normal, airway is patent, no erythema, no exudate. 17:21 Neck: ROM/movement: is normal, is supple, without pain, no range of motions limitations, no nuchal rigidity. 17:21 Chest/axilla: Inspection: normal, Palpation: is normal, no crepitus, no tenderness. 17:21 Cardiovascular: Rate: normal, Rhythm: regular. cp 17:21 Respiratory: the patient does not display signs of respiratory distress, Respirations: normal, no use of accessory muscles, no retractions, no splinting, no tachypnea, labored breathing, is not present, Breath sounds: are clear throughout, no decreased breath sounds, no stridor, no wheezing. 17:21 Abdomen/GI: Inspection: abdomen appears normal, Bowel sounds: active, all quadrants, Palpation: soft, in all quadrants, mild abdominal tenderness, in all quadrants, rebound tenderness, is not appreciated, voluntary guarding, is not appreciated, involuntary guarding, is not appreciated. 17:21 Back: pain, is absent, ROM is normal. 17:21 Skin: cellulitis, is not appreciated, no rash present. Vital Signs: 16:53 BP 140 / 98; Pulse 90; Resp 16; Temp 98.4; Pulse Ox 98% on R/A; Weight 57.61 kg; Height aj 5 ft. 2 in. (157.48 cm); Pain 9/10; 20:21 BP 113 / 87; Pulse 62; Resp 18; Pulse Ox 98% ; Pain 0/10; mg2 16:53 Body Mass Index 23.23 (57.61 kg, 157.48 cm) aj Procedures: 18:39 Peripheral line: by aseptic technique a peripheral line was placed in the left external cp jugular vein. MDM: 17:14 Patient medically screened. cp 18:00 Differential diagnosis: bowel obstruction, gastritis, pancreatitis, Pyelonephritis, cp urinary tract infection, flare of Crohns' disease, bowel perforation. 20:36 Data reviewed: vital signs, nurses notes, lab test result(s), and as a result, I will jr8 discharge patient. Data interpreted: Pulse oximetry: on room air is 98 %. Interpretation: normal. 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 Response to treatment: the patient's symptoms have resolved after treatment. ED course: Patient reexamined. Abdomen soft/nontender. No vomiting. Will send home on antibiotics and nausea and pain medication. To come back if worse. Patient good with this and will follow up . 11/07 17:18 Order name: Amylase, Serum; Complete Time: 19:18 cp 11/07 17:18 Order name: Basic Metabolic Panel; Complete Time: 19:18 cp 11/07 17:18 Order name: CBC with Diff; Complete Time: 19:18 cp 11/07 17:18 Order name: Creatinine for Radiology; Complete Time: 19:18 cp 11/07 17:18 Order name: Hepatic Function; Complete Time: 19:18 cp 11/07 17:18 Order name: Lipase; Complete Time: 19:18 cp 11/07 17:18 Order name: Urine Microscopic Only; Complete Time: 20:25 cp 11/07 19:05 Order name: Urine Dipstick--Ancillary (enter results); Complete Time: 20:25 eb 11/07 19:05 Order name: Urine --Ancillary (enter results); Complete Time: 20:25 eb 11/07 17:18 Order name: IV Saline Lock; Complete Time: 19:11 cp 11/07 17:18 Order name: Labs collected and sent; Complete Time: 19:11 cp 11/07 17:18 Order name: Urine Dipstick-Ancillary (obtain specimen); Complete Time: 19:11 cp Administered Medications: 18:41 Drug: Reglan 20 mg Route: IVP; Site: left jugular; kr2 20:25 Follow up: Response: No adverse reaction mg2 18:41 Drug: ProTONIX 40 mg Route: IVP; Site: left jugular; kr2 20:25 Follow up: Response: No adverse reaction mg2 18:42 Drug: NS 0.9% 1000 ml Route: IV; Rate: 1 bolus; Site: left jugular; kr2 20:26 Follow up: Response: No adverse reaction; IV Status: Completed infusion mg2 19:10 Drug: Benadryl 12.5 mg Route: IVP; Site: left jugular; mg2 20:25 Follow up: Response: No adverse reaction mg2 19:11 Drug: morphine 4 mg Route: IVP; Site: left jugular; mg2 20:25 Follow up: Response: No adverse reaction; Pain is decreased mg2 Disposition: 11/08 06:58 Co-signature as Attending Physician, Richy Mathew MD. rn Disposition: 11/07/17 20:38 Discharged to Home. Impression: Crohn's disease [regional enteritis]. - Condition is Stable. - Discharge Instructions: Crohn Disease. - Prescriptions for Bentyl 20 mg Oral Tablet - take 1 tablet by ORAL route every 6 hours As needed; 20 tablet. Zofran 4 mg Oral Tablet - take 1 tablet by ORAL route every 12 hours As needed; 20 tablet. Augmentin 875- 125 mg Oral Tablet - take 1 tablet by ORAL route every 12 hours for 10 days; 20 tablet. Flagyl 500 mg Oral Tablet - take 1 tablet by ORAL route every 6 hours for 10 days; 40 tablet. Tylenol- Codeine #3 300-30 mg Oral Tablet - take 2 tablets by ORAL route every 6 hours As needed; 20 tablet. - Medication Reconciliation Form, Thank You Letter, Antibiotic Education, Prescription Opioid Use form. - Follow up: Private Physician; When: 2 - 3 days; Reason: Recheck today's complaints, Continuance of care, Re-evaluation by your physician. - Problem is new. - Symptoms have improved. Signatures: Dispatcher [employer] Cally Lal RN RN aj Nieto, Roman, MD MD rn Roszak, Stefano, PA PA jr8 Jorge Alberto Jewell PA PA cp Reaves, Karey, RN RN kr2 Luís Rahman RN RN mg2 Corrections: (The following items were deleted from the chart) 11/07 20:54 20:38 11/07/2017 20:38 Discharged to Home. Impression: Crohn's disease [regional mg2 enteritis]. Condition is Stable. Forms are Medication Reconciliation Form, Thank You Letter, Antibiotic Education, Prescription Opioid Use. Follow up: Private Physician; When: 2 - 3 days; Reason: Recheck today's complaints, Continuance of care, Re-evaluation by your physician. Problem is new. Symptoms have improved. jr8
[2017-11-07 21:07] VITALS: TEMP 98.4; O2SAT 98
[2017-11-07 21:08] VITALS: BP 113/87
== END 2017-11-07 20:54 | disposition home or self-care (01) ==
LOC: ER 16:21
PROC: 05HQ33Z Insertion of Infusion Device into Left External Jugular Vein, Percutaneous Approach (ICD-10-PCS; principal; 2017-11-07)
DX: K50.90 Crohn's disease, unspecified, without complications (principal); F17.210 Nicotine dependence, cigarettes, uncomplicated; E03.9 Hypothyroidism, unspecified; G40.909 Epilepsy, unspecified, not intractable, without status epilepticus; F31.9 Bipolar disorder, unspecified; Z88.1 Allergy status to other antibiotic agents; Z88.8 Allergy status to other drugs, medicaments and biological substances
CPT/HCPCS: 36415; 36569; 80048; 80076; 81025; 82150; 83690; 85025; 96361; 96374; 96375; 99284; C9113; J2765; J7030; 81003; 81015

== ENCOUNTER 2017-11-22 07:15 | Observation (INO) | payer OTHER ==
--- OUTSIDE RECORDS SUMMARY | 2017-11-22 07:17 | XMS REPORT | Clinical Summary ---
:1970 Author Organization [employer] [facility] Address [address] [place] [address] Care Team Providers Name Role Phone Eryn [...] General Internal Eryn Wall Small bowel 08/18/2017 Raz Mchugh MD obstruction (Primary Dx) 07/18/2017 - Hospital Encounter General Internal Eryn Wall Colitis presumed 07/21/2017 Raz Mchugh MD infectious (Primary Dx) after 11/21/2016 Social History Tobacco Use Types Packs/Day Years [...] INFLUENZA VACCINE 11/29/2017 Implants Implanted Type Area Asparagus Cutter Device Identifier Expiration Date Model / Serial [...] procedure are in the results section. after 11/21/2016 Results Estimated GFR (08/22/2017 5:35 AM)Only the most recent of8 resultswithin the time period is included. GFR Non Af Amer >90 mL/min/1.73 m2 [facility] DEPARTMENT OF PATHOLOGY AND GENOMIC MEDICINE GFR Af Amer >90 mL/min/1.73 m2 [facility] DEPARTMENT OF Comment: PATHOLOGY AND GENOMIC [...] specimen Performing Organization Address City/State/Zipcode Phone Number [facility] DEPARTMENT OF PATHOLOGY [address] [place] [phone] AND [place] [facility] CBC with platelet and differential (08/22/2017 5:35 AM)Only the most recent of6 resultswithin the time period is included. WBC 7.1 4.5 - 11.0 k/uL [facility] DEPARTMENT OF PATHOLOGY AND GENOMIC MEDICINE RBC 3.78 (L) 4.20 - 5.50 m/uL [facility] DEPARTMENT OF PATHOLOGY AND GENOMIC MEDICINE HGB 11.9 (L) 12.0 - 16.0 g/dL [facility] DEPARTMENT OF PATHOLOGY AND GENOMIC MEDICINE HCT 35.9 (L) 37.0 - 47.0 % [facility] DEPARTMENT OF PATHOLOGY AND GENOMIC MEDICINE MCV 95.0 82.0 - 100.0 fL [facility] DEPARTMENT OF PATHOLOGY AND GENOMIC MEDICINE MCH 31.5 27.0 - 34.0 pg [facility] DEPARTMENT OF PATHOLOGY AND GENOMIC MEDICINE MCHC 33.1 31.0 - 37.0 g/dL [facility] DEPARTMENT OF PATHOLOGY AND GENOMIC MEDICINE RDW - SD 43.0 37.0 - 55.0 fL [facility] DEPARTMENT OF PATHOLOGY AND GENOMIC MEDICINE MPV 9.3 6.9 - 11.0 fL [facility] DEPARTMENT OF PATHOLOGY AND GENOMIC MEDICINE Platelet count 230 150 - 400 K/uL [facility] DEPARTMENT OF PATHOLOGY AND GENOMIC MEDICINE Nucleated RBC 0.00 /100 WBC [facility] DEPARTMENT OF PATHOLOGY AND GENOMIC MEDICINE Neutrophils 77.2 (H) 39.0 - 69.0 % [facility] DEPARTMENT OF PATHOLOGY AND GENOMIC MEDICINE Lymphocytes 18.6 (L) 25.0 - 45.0 % [facility] DEPARTMENT OF PATHOLOGY AND GENOMIC MEDICINE Monocytes 3.8 0.0 - 10.0 % [facility] DEPARTMENT OF PATHOLOGY AND GENOMIC MEDICINE Eosinophils 0.0 0.0 - 5.0 % [facility] DEPARTMENT OF PATHOLOGY AND GENOMIC MEDICINE Basophils 0.1 0.0 - 1.0 % [facility] DEPARTMENT OF PATHOLOGY AND GENOMIC MEDICINE Immature granulocytes 0.3 0.0 - 1.0 % [facility] DEPARTMENT OF PATHOLOGY AND GENOMIC MEDICINE Specimen Blood Performing Organization Address City/State/Zipcode Phone Number [facility] DEPARTMENT OF PATHOLOGY [address] [place] [address] AND [facility] Magnesium level (08/22/2017 5:35 AM)Only the most recent of3 resultswithin the time period is included. Magnesium 1.8 1.6 - 2.6 mg/dL [facility] DEPARTMENT OF PATHOLOGY AND GENOMIC MEDICINE Specimen Plasma specimen Performing Organization Address City/State/Zipcode Phone Number [facility] DEPARTMENT OF PATHOLOGY [address] [place] [address] AND [place] [facility] Comprehensive metabolic panel (08/22/2017 5:35 AM)Only the most recent of4 resultswithin the time period is included. Sodium 141 135 - 148 mEq/L [facility] DEPARTMENT OF PATHOLOGY AND GENOMIC MEDICINE Potassium 4.2 3.5 - 5.0 mEq/L [facility] DEPARTMENT OF PATHOLOGY AND GENOMIC MEDICINE Chloride 101 98 - 112 mEq/L [facility] DEPARTMENT OF PATHOLOGY AND GENOMIC MEDICINE CO2 26 24 - 31 mEq/L [facility] DEPARTMENT OF PATHOLOGY AND GENOMIC MEDICINE Anion gap 14 7 - 15 mEq/L [facility] DEPARTMENT OF Comment: PATHOLOGY AND GENOMIC Starting from July , anion gap calculation MEDICINE no longer incorporates potassium. Please note the change. BUN 8 6 - 20 mg/dL [facility] DEPARTMENT OF PATHOLOGY AND GENOMIC MEDICINE Creatinine 0.6 0.5 - 0.9 mg/dL [facility] DEPARTMENT OF PATHOLOGY AND GENOMIC MEDICINE Glucose 119 (H) 65 - 99 mg/dL [facility] DEPARTMENT OF PATHOLOGY AND GENOMIC MEDICINE Calcium 8.9 8.3 - 10.2 mg/dL [facility] DEPARTMENT OF PATHOLOGY AND GENOMIC MEDICINE Protein 6.2 (L) 6.3 - 8.3 g/dL [facility] DEPARTMENT OF PATHOLOGY AND GENOMIC MEDICINE Albumin 3.6 3.5 - 5.0 g/dL [facility] DEPARTMENT OF PATHOLOGY AND GENOMIC MEDICINE A/G ratio 1.4 0.7 - 3.8 [facility] DEPARTMENT OF PATHOLOGY AND GENOMIC MEDICINE Alkaline phosphatase 63 35 - 104 U/L [facility] DEPARTMENT OF PATHOLOGY AND GENOMIC MEDICINE AST 22 10 - 35 U/L [facility] DEPARTMENT OF PATHOLOGY AND GENOMIC MEDICINE ALT 44 5 - 50 U/L [facility] DEPARTMENT OF PATHOLOGY AND GENOMIC MEDICINE Total bilirubin <0.2 0.2 - 1.2 mg/dL [facility] DEPARTMENT OF PATHOLOGY AND GENOMIC MEDICINE Specimen Plasma specimen Performing Organization Address City/State/Zipcode Phone Number [facility] DEPARTMENT OF PATHOLOGY [address] [place] [address] AND [facility] MEDICINE Sedimentation rate (08/21/2017 4:10 AM)Only the most recent of2 resultswithin the time period is included. Sedimentation rate 21 (H) 0 - 20 mm/hr [facility] DEPARTMENT OF PATHOLOGY AND GENOMIC MEDICINE Specimen Blood Performing Organization Address City/State/Zipcode Phone Number [facility] DEPARTMENT OF PATHOLOGY [address] [place] [address] AND [facility] CRP high sensitivity (08/21/2017 4:10 AM) CRP, high sensitivity 0.47 mg/L [facility] DEPARTMENT OF Comment: PATHOLOGY AND [facility] Please note this test is different from [...] specimen Performing Organization Address City/State/Zipcode Phone Number [facility] DEPARTMENT OF PATHOLOGY AND [address] [place] [address] [facility] Basic metabolic panel (08/21/2017 4:10 AM)Only the most recent of4 resultswithin the time period is included. Sodium 143 135 - 148 mEq/L [facility] DEPARTMENT OF PATHOLOGY AND GENOMIC MEDICINE Potassium 3.8 3.5 - 5.0 mEq/L [facility] DEPARTMENT OF PATHOLOGY AND GENOMIC MEDICINE Chloride 106 98 - 112 mEq/L [facility] DEPARTMENT OF PATHOLOGY AND GENOMIC MEDICINE CO2 26 24 - 31 mEq/L [facility] DEPARTMENT OF PATHOLOGY AND GENOMIC MEDICINE Anion gap 11 7 - 15 mEq/L [facility] DEPARTMENT OF Comment: PATHOLOGY AND GENOMIC Starting from July , anion gap calculation MEDICINE no longer incorporates potassium. Please note the change. BUN <4 (L) 6 - 20 mg/dL [facility] DEPARTMENT OF PATHOLOGY AND GENOMIC MEDICINE Creatinine 0.6 0.5 - 0.9 mg/dL [facility] DEPARTMENT OF PATHOLOGY AND GENOMIC MEDICINE Glucose 105 (H) 65 - 99 mg/dL [facility] DEPARTMENT OF PATHOLOGY AND GENOMIC MEDICINE Calcium 9.1 8.3 - 10.2 mg/dL [facility] DEPARTMENT OF PATHOLOGY AND GENOMIC MEDICINE Specimen Plasma specimen Performing Organization Address City/[facility]/Zipcode Phone Number [facility] DEPARTMENT OF PATHOLOGY [address] [place] [address] AND [facility]IC[facility] Occult blood, stool (08/17/2017 9:30 AM) Occult blood, stool Negative for occult blood. [facility] DEPARTMENT OF Comment: PATHOLOGY AND GENOMIC Specimen Information MEDICINE Specimen Source: Stool Specimen Site: Nonpreserved Specimen Stool - Nonpreserved Performing Organization Address City/[facility] Phone Number [facility] DEPARTMENT OF PATHOLOGY [address] [place] [phone] AND [facility] MEDICINE XR Abdomen 1 Vw (08/16/2017 12:25 PM) Narrative Performed At EXAMINATION:XR ABDOMEN 1 VW RADIANT CLINICAL HISTORY:Bowel obstruction COMPARISON:None. IMPRESSION: Loops of dilated small bowel compatible with an ileus versus partial small bowel obstruction A spinal stimulator pump projects over the right lower quadrant The gallbladder has been removed Bony structures are within normal limits [id number] Procedure Note Interface, Radiology Results Incoming - 08/16/2017 1:04 PM CDT EXAMINATION: XR ABDOMEN 1 VW CLINICAL HISTORY: Bowel obstruction COMPARISON: None. IMPRESSION: Loops of dilated small bowel compatible with an ileus versus partial small bowel obstruction A spinal stimulator pump projects over the right lower quadrant The gallbladder has been removed Bony structures are within normal limits [id number] Performing Organization Address City/[facility]/Zipcode Phone Number [facility] [address] [place] [address] Gastrointestinal panel (08/15/2017 3:40 AM) Gastrointestinal panel Negative for all pathogens tested: [facility] DEPARTMENT OF Negative for Salmonella PATHOLOGY AND [...] Specimen Stool - Nonpreserved Performing Organization Address City/[facility] Phone Number [facility] DEPARTMENT OF PATHOLOGY AND [address] [place] [address] GENOMIC MEDICINE C difficile toxin (07/19/2017 7:50 PM) Clostridium difficile No Clostridium difficle toxin present [facility] DEPARTMENT OF toxin Comment: PATHOLOGY AND GENOMIC Specimen Information MEDICINE Specimen Source: Stool Specimen Site: Nonpreserved Specimen Stool - Nonpreserved Performing Organization Address [facility] Phone Number [facility] DEPARTMENT OF PATHOLOGY AND [address] [place] [address] [facility] C-reactive protein (07/19/2017 10:08 AM) CRP <0.30 0.00 - 0.50 mg/dL [facility] DEPARTMENT OF PATHOLOGY AND GENOMIC MEDICINE Specimen Plasma specimen Performing Organization Address [facility] Phone Number [facility] DEPARTMENT OF PATHOLOGY AND [address] [place] [address] GENOMIC MEDICINE after 11/21/2016 Insurance Payer Benefit Plan / Group Subscriber ID Type Phone Address MEDICARE MEDICARE PART A AND B xxxxxxxxxx Medicare [place], [place] MEDICAID MEDICAID xxxxxxxxx Medicaid Home: [address] [phone] [place], [place] [phone]
--- OUTSIDE RECORDS SUMMARY | 2017-11-22 07:17 | XMS REPORT ---
:1970 Author Organization [facility] Address [address] [place] [address] Care Team Providers Name Role Phone DR [...] Department ID 2016-11-04 Inpatient C NARESH [facility] [id number] 09:30:00 EDGARD 2016-07-15 2016-07-19 Inpatient 1 HARSHIL ALLEN [facility] [place] [id number] 18:47:00 10:30:00 BLAKE 2013-11-19 2013-11-19 Emergency E [facility] [id number] 10:08:00 12:55:00 RADHA Results Test Description Test Time Test Comments Text Results Atomic Results Result Comments CT ABDOMEN/PELVIS WITH 2016-07-26 14:26:[address] [id number] IMAGING REPORTPatient Name: Manuel DEL TORO of Service: [id number]: 45 Sex: F Order #: [id number] Room: ERSDOB: 1970 X-Ray Number: [id number] Record Number: [id number] Hospital Number: [id number] Physician: KISHAN MUNOZ -Ordering Physician: HERNANDEZ MONTEMAYOR [...] Syed 2016-07-26 14:23:48 CT ABDOMEN/PELVIS 2016-07-17 02:49:00 [address] REPORTPatient Name: Manuel DEL TORO of Service: [id number]: 45 Sex: F Order #: [id number] Room: [facility] 2NEDOB: 1970 X-Ray Number: [id number] Record Number: [id number] Hospital Number: [id number] Physician: BLAKE ALLEN -Ordering Physician: AURORA LOWERY [...] 2016-07-17 02:47:19 ABDOMEN 2 VIEWS 2016-07-15 12:14:[address] [id number] IMAGING REPORTPatient Name: Manuel DEL TORO of Service: [id number]: 45 Sex: F Order #: [id number] [facility] 1970 [facility] Number: [id number] Record Number: [id number] Hospital Number: [id number] Physician: Austin TEJEDA Physician: Elvis GARCIA 2 [...]
[2017-11-22] MEDS ORDERED: ONDANSETRON 4 MG/2 ML VIAL ONE ×2 (07:35→10:37)
[2017-11-22] MEDS ORDERED: FAMOTIDINE 20 MG/2 ML VIAL IV ONE (07:51)
[2017-11-22] MEDS ORDERED: ASPIRIN 81 MG CHEWABLE TABLET ONE (07:51)
[2017-11-22] MEDS ORDERED: MEPERIDINE HCL 25 MG/0.5 ML ONE (07:51)
[2017-11-22 08:07] LABS: Absolute Lymphocytes (CBC) 1.7 K/uL (0.7-4.9); Absolute Monocytes 0.5 K/uL (0.1-1.3); Basophils % 0.3 % (0-1.3); Eosinophils % 1.8 % (0-4.4); Hematocrit 42.7 % (36.0-45.0); MCH 31.4 pg (27.0-35.0); MCV 93.5 fL (80-100); MPV 7.2 fL (7.6-11.3); Monocytes % 4.1 % (3.3-12.3); RBC Red Blood Cell Count 4.57 M/uL (3.86-4.86)
[2017-11-22 08:09] LABS: Protime INR 0.98
[2017-11-22] MEDS ORDERED: LIDOCAINE VISCOUS 2% SOLN 15 ML UDC ONE (08:29)
[2017-11-22] MEDS ORDERED: METOCLOPRAMIDE 10 MG/2mL INJ ONE (08:29)
[2017-11-22] MEDS ORDERED: MAGNE/ALUM HYDROXD 30 ML UCUP ONE (08:29)
[2017-11-22 08:30] LABS: ALT/SGPT 34 U/L (12-78); AST/SGOT 22 U/L (15-37); Albumin 3.7 g/dL (3.4-5.0); Alkaline Phosphatase 86 U/L (45-117); BUN Blood Urea Nitrogen 11 mg/dL (7-18); Bicarbonate 27 mmol/L (21-32); Bilirubin Direct 0.1 mg/dL (0-0.2); Bilirubin Total 0.2 mg/dL (0.2-1.0); Creatine Phosphokinase 70 U/L (26-192); Glucose Level 121 mg/dL (74-106); Lipase 195 U/L (73-393); Magnesium 2.2 mg/dL (1.8-2.4); NT PRO-BNP 98 pg/mL (<125); Potassium 4.1 mmol/L (3.5-5.1); Protein, Total 7.3 g/dL (6.4-8.2); Sodium Level 140 mmol/L (136-145)
[2017-11-22] MEDS ORDERED: FENTANYL CITR 100 MCG/2 ML ONE (09:12)
--- NOTE | 2017-11-22 09:26 | RAD REPORT ---
EXAM DESCRIPTION: RAD - Chest Single View - 11/22/2017 9:08 am CLINICAL HISTORY: Chest pain COMPARISON: None. TECHNIQUE: AP portable chest image was obtained 0857 hours . FINDINGS: No mass, consolidation or failure. Mild prominence of the lung markings believed to be bas jeffrey. Trachea is midline. Heart and vasculature are normal. No measurable pleural effusion and no pn eumothorax. No gross bony abnormality seen. No acute aortic findings suspected. IMPRESSION: No acute cardiopulmonary process.
--- NOTE | 2017-11-22 10:28 | EKG ---
Test Date: 2017-11-22 Test Time: 07:28:30 Quarter Backer: JANET MEASUREMENT RESULTS: Intervals: Rate: 75 [place]: 130 QRSD: 96 QT: 406 QTc: 453 [place]: P: 58 [place]: 130 QRS: 76 T: 65 INTERPRETIVE STATEMENTS: Sinus rhythm with marked sinus arrhythmia Otherwise normal ECG No previous ECG available for comparison Electronically Signed On 11-22-17 10:27:54 CDT by Andrzej Mcmillan
--- NOTE | 2017-11-22 10:54 | RAD REPORT ---
EXAM DESCRIPTION: CT - Angio Aorta For Dissection - 11/22/2017 10:23 am CLINICAL HISTORY: Chest pain radiating to the back. CHEST PAIN COMPARISON: Chest Single View dated 11/22/2017; Abdomen Pelvis W Contrast dated 02/10/2017 TECHNIQUE: CT angiography of the aorta was performed with MIPs. All CT scans are performed using dose optimization technique as appropriate and may include automated exposure control or mA/KV adjustment according to patient size. FINDINGS: A left aortic arch is present with 4 vessel branching pattern of the great vessels.No acut e aortic finding is seen such as aneurysm, penetrating ulcer or dissection. The celiac axis, SMA, IM A and renal arteries are widely patent. No evidence of pulmonary embolism. The lungs are clear. The liver demonstrates no focal mass or biliary dilatation.Cholecystectomy clips.The spleen, pancreas , adrenal glands and right kidney are within normal limits for arterial phase imaging.The left kidney contains a prominent cyst superior pole measuring 3.5 cm with a small peripheral calcification. No bowel obstruction, free fluid or abscess.Postsurgical changes about the colon seen the right.No pa thologic enlarged lymphadenopathy identified. No fracture or worrisome bone lesion seen.Mild anterior wedge compression deformity of L2, chronic. Pain pump is in place. IMPRESSION: No acute aortic finding is demonstrated.
--- NOTE | 2017-11-22 11:05 | ER ---
Nurse's Notes [facility] Name: Angela Rodriguez Age: 47 yrs Sex: Female : 1970 Arrival Date: 11/22/2017 Time: 07:16 Bed 19 Private MD: out of town, doctor Diagnosis: Chest pain, unspecified Presentation: 11/22 07:20 Presenting complaint: Patient states: "I had the battery replaced on my Dilaudid pain aa5 pump on Monday and now I am having pain there and my chest started hurting this morning". Pt also reports N/V. 07:20 Transition of care: patient was not received from another setting of care. Onset of aa5 symptoms was November 22, 2017. Risk Assessment: Do you want to hurt yourself or someone else? Patient reports no desire to harm self or others. Initial Sepsis Screen: Does the patient meet any 2 criteria? No. Patient's initial sepsis screen is negative. Does the patient have a suspected source of infection? No. Patient's initial sepsis screen is negative. Care prior to arrival: None. 07:20 Method Of Arrival: Wheelchair aa5 07:20 Acuity: LIZZY 3 aa5 Triage Assessment: 07:59 General: Appears in no apparent distress. uncomfortable, Behavior is calm, cooperative, hj appropriate for age. Pain: Complains of pain in chest and abdomen. EENT: No signs and/or symptoms were reported regarding the EENT system. Neuro: Level of Consciousness is awake, alert, obeys commands, Oriented to person, place, time, situation, Appropriate for age. Cardiovascular: Capillary refill < 3 seconds Patient's skin is warm and dry. Respiratory: Airway is patent Respiratory effort is even, unlabored, Respiratory pattern is regular, symmetrical. GI: Abdomen is non-distended, Bowel sounds present X 4 quads. : No signs and/or symptoms were reported regarding the genitourinary system. Derm: No signs and/or symptoms reported regarding the dermatologic system. Musculoskeletal: No signs and/or symptoms reported regarding the musculoskeletal system. 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 - Ebola Screening: : No symptoms or risks identified at this time. - Social history:: Smoking status: Patient uses tobacco products, Patient/guardian denies using alcohol. Screenin:20 Abuse screen: Denies threats or abuse. Denies injuries from another. Nutritional hj screening: No deficits noted. Tuberculosis screening: No symptoms or risk factors identified. Fall Risk None identified. Assessment: 08:00 GI: Abd is soft and non tender X 4 quads. hj 08:18 Reassessment: still complaining of pain post med demerol; MD notified;. hj 08:42 Reassessment: still having pain with orders; carried out; pending results and POC:. hj 09:02 Reassessment: pt is asking for pain meds; provider notified; to visit pt for POC;. hj 10:03 Reassessment: Patient and/or family updated on plan of care and expected duration. Pain hj level reassessed. Patient is alert, oriented x 3, equal unlabored respirations, skin warm/dry/pink. still with complaints of pain; with pending test;. 10:10 Reassessment: wheeled to CT;. hj Vital Signs: 07:25 BP 158 / 119; Pulse 81; Resp 18; Temp 98.5(O); Pulse Ox 98% on R/A; Weight 62.14 kg; 3 Height 5 ft. 2 in. (157.48 cm); Pain 10/10; 08:42 BP 160 / 110; Pulse 63; Resp 18; Pulse Ox 100% on R/A; hj 09:35 BP 165 / 109; Pulse 65; Resp 18; Pulse Ox 100% on R/A; hj 10:50 BP 161 / 90; Pulse 66; Resp 18; Pulse Ox 100% on R/A; hj 07:25 Body Mass Index 25.06 (62.14 kg, 157.48 cm) dh3 ED Course: 07:16 Patient arrived in ED. mr 07:16 out of town, doctor is Private Physician. mr 07:20 Tahir Cash, ANANYA is Primary Nurse. hj 07:20 Arm band placed on Patient placed in an exam room, on a stretcher. aa5 07:25 Triage completed. aa5 07:29 Stefano Trotter PA is PHCP. jr8 07:29 Richy Mathew MD is Attending Physician. jr8 07:48 EKG done, by survey technician. reviewed by Stefano EUBANKS. at1 07:48 Initial lab(s) drawn, by sc, sent to lab. Inserted saline lock: 24 gauge in left hand, hj using aseptic technique. Blood collected. 08:00 Patient has correct armband on for positive identification. Placed in gown. Bed in low hj position. Call light in reach. Adult w/ patient. 09:05 X-ray completed. Portable x-ray completed in exam room. Patient tolerated procedure jb2 well. 09:07 XRAY Chest (1 view) In Process Unspecified. EDMS 09:42 Inserted saline lock: 22 gauge in right antecubital area, using aseptic technique. hj 10:[address] via wheelchair. sj 10:22 CT completed. Patient tolerated procedure well. Patient moved back from CT. sj 10:23 CT Aorta for Dissection In Process Unspecified. EDMS 10:30 Inserted saline lock: 22 gauge in left forearm, using aseptic technique. hj 11:04 Calderon Kerr MD is Hospitalizing Provider. jr8 12:10 No provider procedures requiring assistance completed. Patient admitted, IV remains in hj place. intact. Administered Medications: 07:35 Drug: Zofran 4 mg Route: IVP; Site: left hand; hj 07:44 Follow up: Response: Nausea unchanged hj 07:45 Drug: Demerol 25 mg Route: IVP; Site: left hand; hj 08:33 Follow up: Response: No adverse reaction; Anxiety unchanged hj 07:45 Drug: Aspirin Chewable Tablet 324 mg Route: PO; hj 08:33 Follow up: Response: No adverse reaction hj 07:45 Drug: Pepcid 20 mg Route: IVP; Site: left hand; hj 08:33 Follow up: Response: No adverse reaction hj 08:25 Drug: Reglan 10 mg Route: IVP; Site: left hand; hj 08:33 Follow up: Response: No adverse reaction hj 08:25 Drug: GI Cocktail without - (Maalox Suspension 30 ml, Lidocaine Liquid 2 % 15 hj ml) Route: PO; 08:32 Follow up: Response: No adverse reaction hj 09:07 Drug: fentaNYL (PF) 75 mcg Route: IVP; Site: left hand; hj 09:48 Follow up: Response: No adverse reaction; Pain is unchanged, physician notified hj 10:35 Drug: fentaNYL (PF) 25 mcg Route: IVP; Site: left forearm; hj 11:42 Follow up: Response: No adverse reaction hj 10:35 Drug: Zofran 4 mg Route: IVP; Site: left forearm; hj 11:42 Follow up: Response: No adverse reaction Outcome: 11:04 Decision to Hospitalize by Provider. jr8 12:10 Admitted to Med/surg accompanied by tech, family with patient, via wheelchair, room hj 214, with chart, Report called to ANANYA Nino 12:10 Condition: stable 12:10 Instructed on the need for admit, Demonstrated understanding of instructions. 12:12 Patient left the ED. Signatures: Dispatcher [employer] EDWI Evelyn Medeiros mr CarrenoAlexei jb2 Maye To Audri, RN RN alcides5 Stefano Trotter PA PA jr8 Cally robles, credit report checker EKG Tat1 Tahir Cash, ANANYA HARE Tahira Laura 3 Corrections: (The following items were deleted from the chart) 07:32 07:25 BP 158 / 119; Pulse 81bpm; Resp 18bpm; Pulse Ox 98% RA; Temp 98.5F Oral; dh3 dh3 12:12 12:10 Admitted to Med/surg accompanied by tech, family with patient, via wheelchair, room 213, with chart, Report called to ANANYA Nino
--- NOTE | 2017-11-22 11:05 | EDPHYS ---
Physician Documentation [facility] Name: Angela Rodriguez Age: 47 yrs Sex: Female : 1970 Arrival Date: 11/22/2017 Time: 07:16 Bed 19 Private MD: out of town, doctor ED Physician Richy Mathew HPI: 11/22 08:13 This 47 yrs old Female presents to ER via Wheelchair with complaints of jr8 Abdominal Pain, Vomiting. 08:13 The patient presents with abdominal pain right lower quadrant. Onset: The jr8 symptoms/episode began/occurred acutely, today. Associated signs and symptoms: Pertinent positives: nausea and vomiting, chest pain. The symptoms are described as sharp. Severity of pain: At its worst the pain was moderate in the emergency department the pain is unchanged. The patient has not experienced similar symptoms in the past. The patient has been recently seen by a physician:. Patient had battery changed in dilaudid pump which is located in the RLQ of the abdomen on Monday. Stated that today she started to have both abdominal pain over that area and chest pain. 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 - Ebola Screening: : No symptoms or risks identified at this time. - Social history:: Smoking status: Patient uses tobacco products, Patient/guardian denies using alcohol. ROS: 08:17 Eyes: Negative for injury, pain, redness, and discharge, ENT: Negative for injury, jr8 pain, and discharge, Neck: Negative for injury, pain, and swelling, Respiratory: Negative for shortness of breath, cough, wheezing, and pleuritic chest pain, Back: Negative for injury and pain, MS/Extremity: Negative for injury and deformity, Skin: Negative for injury, rash, and discoloration, Neuro: Negative for headache, weakness, numbness, tingling, and seizure. 08:17 Cardiovascular: Positive for chest pain, Negative for edema, orthopnea, palpitations, paroxysmal nocturnal dyspnea. 08:17 Abdomen/GI: Positive for abdominal pain, nausea and vomiting, Negative for diarrhea, constipation, abdominal cramps, abdominal distension, anorexia, dysphagia, hematemesis, black/tarry stool, rectal pain, rectal bleeding, bowel incontinence, flatulence. Exam: 08:17 Eyes: Pupils equal round and reactive to light, extra-ocular motions intact. Lids and jr8 lashes normal. Conjunctiva and sclera are non-icteric and not injected. Cornea within normal limits. Periorbital areas with no swelling, redness, or edema. ENT: Nares patent. No nasal discharge, no septal abnormalities noted. Tympanic membranes are normal and external auditory canals are clear. Oropharynx with no redness, swelling, or masses, exudates, or evidence of obstruction, uvula midline. Mucous membranes moist. Neck: Trachea midline, no thyromegaly or masses palpated, and no cervical lymphadenopathy. Supple, full range of motion without nuchal rigidity, or vertebral point tenderness. No Meningismus. Cardiovascular: Regular rate and rhythm with a normal S1 and S2. No gallops, murmurs, or rubs. Normal PMI, no JVD. No pulse deficits. Respiratory: Lungs have equal breath sounds bilaterally, clear to auscultation and percussion. No rales, rhonchi or wheezes noted. No increased work of breathing, no retractions or nasal flaring. Back: No spinal tenderness. No costovertebral tenderness. Full range of motion. Skin: Warm, dry with normal turgor. Normal color with no rashes, no lesions, and no evidence of cellulitis. MS/ Extremity: Pulses equal, no cyanosis. Neurovascular intact. Full, normal range of motion. Neuro: Awake and alert, GCS 15, oriented to person, place, time, and situation. Cranial nerves II-XII grossly intact. Motor strength 5/5 in all extremities. Sensory grossly intact. Cerebellar exam normal. Normal gait. 08:17 Abdomen/GI: Inspection: surgical incision with giovani present in the RLQ. No dehiscence or erythema or discharge noted. , Bowel sounds: active, all quadrants, Palpation: soft, in all quadrants, moderate abdominal tenderness, in the right lower quadrant, mass, is not appreciated, rebound tenderness, is not appreciated, voluntary guarding, is not appreciated, involuntary guarding, is not appreciated, no appreciated organomegaly, Indicators: McBurney's point is not tender, Chang's sign is negative, Rovsing's sign is negative, Obturator sign is negative, Liver: no appreciated palpable abnormalities, tenderness, is not appreciated. Vital Signs: 07:25 BP 158 / 119; Pulse 81; Resp 18; Temp 98.5(O); Pulse Ox 98% on R/A; Weight 62.14 kg; dh3 Height 5 ft. 2 in. (157.48 cm); Pain 10/10; 08:42 BP 160 / 110; Pulse 63; Resp 18; Pulse Ox 100% on R/A; hj 09:35 BP 165 / 109; Pulse 65; Resp 18; Pulse Ox 100% on R/A; hj 10:50 BP 161 / 90; Pulse 66; Resp 18; Pulse Ox 100% on R/A; hj 07:25 Body Mass Index 25.06 (62.14 kg, 157.48 cm) 3 Procedures: 09:37 Peripheral line: by aseptic technique a peripheral line was placed in the right 8 antecubital vein. MDM: 07:29 Patient medically screened. [facility] 11:03 Data reviewed: vital signs, nurses notes, lab test result(s), EKG, radiologic studies, jr CT scan, plain films, and as a result, I will admit patient. Data interpreted: Pulse oximetry: on room air is 100 %. Interpretation: normal. Counseling: I had a detailed discussion with the patient and/or guardian regarding: the historical points, exam findings, and any diagnostic results supporting the discharge/admit diagnosis, lab results, radiology results, the need for further work-up and treatment in the hospital. ED course: Patient still with sharp chest pain. Will admit to r/o cardiac related chest pain. 11/22 07:44 Order name: Basic Metabolic Panel; Complete Time: 08:35 8 11/22 07:44 Order name: CBC with Diff; Complete Time: 08:13 jr8 11/22 07:44 Order name: CPK; Complete Time: 08:35 11/22 07:44 Order name: LFT's; Complete Time: 08:35 11/22 07:44 Order name: Magnesium; Complete Time: 08:35 11/22 07:44 Order name: NT PRO-BNP; Complete Time: 08:35 11/22 07:44 Order name: PT-INR; Complete Time: 08:13 11/22 07:44 Order name: Troponin (emerg Dept Use Only); Complete Time: 08:35 11/22 07:44 Order name: XRAY Chest (1 view); Complete Time: 09:27 11/22 07:44 Order name: Lipase; Complete Time: 08:35 11/22 09:37 Order name: CT Aorta for Dissection; Complete Time: 10:57 11/22 07:44 Order name: EKG; Complete Time: 07:44 11/22 07:44 Order name: Cardiac monitoring; Complete Time: 07:45 11/22 07:44 Order name: EKG - Nurse/Tech; Complete Time: 07:45 11/22 07:44 Order name: IV Saline Lock; Complete Time: 07:45 11/22 07:44 Order name: Labs collected and sent; Complete Time: 11:42 11/22 07:44 Order name: O2 Per Protocol; Complete Time: 07:46 11/22 07:44 Order name: O2 Sat Monitoring; Complete Time: 07:46 Administered Medications: 07:35 Drug: Zofran 4 mg Route: IVP; Site: left hand; hj 07:44 Follow up: Response: Nausea unchanged hj 07:45 Drug: Demerol 25 mg Route: IVP; Site: left hand; hj 08:33 Follow up: Response: No adverse reaction; Anxiety unchanged hj 07:45 Drug: Aspirin Chewable Tablet 324 mg Route: PO; hj 08:33 Follow up: Response: No adverse reaction hj 07:45 Drug: Pepcid 20 mg Route: IVP; Site: left hand; hj 08:33 Follow up: Response: No adverse reaction hj 08:25 Drug: Reglan 10 mg Route: IVP; Site: left hand; hj 08:33 Follow up: Response: No adverse reaction hj 08:25 Drug: GI Cocktail without - (Maalox Suspension 30 ml, Lidocaine Liquid 2 % 15 hj ml) Route: PO; 08:32 Follow up: Response: No adverse reaction hj 09:07 Drug: fentaNYL (PF) 75 mcg Route: IVP; Site: left hand; hj 09:48 Follow up: Response: No adverse reaction; Pain is unchanged, physician notified hj 10:35 Drug: fentaNYL (PF) 25 mcg Route: IVP; Site: left forearm; hj 11:42 Follow up: Response: No adverse reaction hj 10:35 Drug: Zofran 4 mg Route: IVP; Site: left forearm; hj 11:42 Follow up: Response: No adverse reaction hj Disposition: 16:48 Co-signature as Attending Physician, Richy Mathew MD. rn Disposition: 11/22/17 11:04 Hospitalization ordered by Calderon Kerr for Observation. Preliminary diagnosis is Chest pain, unspecified. - Bed requested for Telemetry/MedSurg (observation). - Status is Observation. hj - Condition is Stable. - Problem is new. - Symptoms are unchanged. UTI on Admission? No Signatures: Dispatcher [employer] Karissa Freeman RN RN dw Richy Mathew MD MD rn Calderon, Audri, RN RN aa5 Stefano Trotter PA PA jr8 Tahir Cash RN RN Corrections: (The following items were deleted from the chart) 08:17 08:13 Patient had battery changed in dilaudid pump which is located in the RLQ of the jr8 abdomen on Monday. Stated that . jr8 11:30 11:04 Hospitalization Ordered by Calderon Kerr MD for Observation. Preliminary diagnosis dw is Chest pain, unspecified. Bed requested for Telemetry/MedSurg (observation). Status is Observation. Condition is Stable. Problem is new. Symptoms are unchanged. UTI on Admission? No. jr8 12:12 11:30 11/22/2017 11:04 Hospitalization Ordered by Calderon Kerr MD for Observation. hj Preliminary diagnosis is Chest pain, unspecified. Bed requested for Telemetry/MedSurg (observation). Status is Observation. Condition is Stable. Problem is new. Symptoms are unchanged. UTI on Admission? No. dw
[2017-11-22] MEDS ORDERED: ACETAMINOPHEN 500 MG TAB PO PRN (11:38)
[2017-11-22] MEDS: FENTANYL CITR 100 MCG/2 ML IV PRN ×3 (12:31→21:05)
[2017-11-22] MEDS: ONDANSETRON 4 MG/2 ML VIAL IV PRN ×2 (12:32→16:56)
[2017-11-22] MEDS ORDERED: SODIUM CHLORIDE 0.9% 10ML INJ IV PRN (13:11)
[2017-11-22] MEDS ORDERED: PROMETHAZINE 25 MG/ML VIAL IV PRN (13:12)
--- NOTE | 2017-11-22 13:17 | P.HP ---
Certification for Inpatient Patient admitted to: Observation With expected LOS: <2 Midnights Patient will require the following post-hospital care: None Practitioner: I am a practitioner with admitting privileges, knowledge of patient current condition, hospital course, and medical plan of care. Services: Services provided to patient in accordance with Admission requirements found in Title 42 Section 412.3 of the Code of Federal Regulations Patient History Date of Service: 11/22/17 Reason for admission: chest pain History of Present Illness: 47 y/o female with HTN, smoking and Crohn as well as gastric ulcer who presented ER chest pain and epigastric pain this morning, severe, associated with vominutbg several times. No diarrheas. She has no family of heart disease. Chest pain located middle chest, not radiaitng, persisient, aggtrvated by breathing. She had CTA at ER which was negative. Tropon x1 neg Allergies ciprofloxacin Allergy (Unverified 01/26/16 01:35) Unknown promethazine [From Phenergan] Allergy (Unverified 01/26/16 01:35) Unknown Review of Systems 10-point ROS is otherwise unremarkable Physical Examination - Vital Signs Temperature: 98.5 F Blood Pressure: 161/90 Pulse: 66 Respirations: 18 - Physical Exam General: Alert, In no apparent distress HEENT: Atraumatic, PERRLA, Mucous membr. moist/pink, EOMI, Sclerae nonicteric Neck: Supple, 2+ carotid pulse no bruit, No LAD, Without JVD or thyroid abnormality Respiratory: Clear to auscultation bilaterally, Normal air movement Cardiovascular: Regular rate/rhythm, Normal S1 S2 Gastrointestinal: Normal bowel sounds, No tenderness Musculoskeletal: No tenderness Integumentary: No rashes Neurological: Normal gait, Normal speech, Normal strength at 5/5 x4 extr, Normal tone, Normal affect Lymphatics: No axilla or inguinal lymphadenopathy - Studies Laboratory Data (last 24 hrs) 11/22/17 07:40: PT 11.6, INR 0.98 11/22/17 07:40: WBC 11.4 H, Hgb 14.4, Hct 42.7, Plt Count 312 11/22/17 07:40: Sodium 140, Potassium 4.1, BUN 11, Creatinine 0.70, Glucose 121 H, Magnesium 2.2, Total Bilirubin 0.2, AST 22, ALT 34, Alkaline Phosphatase 86, Lipase 195 Assessment and Plan - Problems (Diagnosis) (1) Chest pain Current Visit: Yes Status: Acute Qualifiers: Chest pain type: precordial pain Qualified Code(s): R07.2 - Precordial pain (2) Crohns disease Current Visit: Yes Status: Chronic Qualifiers: Gastrointestinal tract location: small and large intestine Digestive disease complication type: without complication Qualified Code(s): K50.80 - Crohn's disease of both small and large intestine without complications (3) Gastric ulcer Current Visit: Yes Status: Acute Qualifiers: Gastric ulcer chronicity: acute Gastric ulcer complication status: without hemorrhage or perforation Qualified Code(s): K25.3 - Acute gastric ulcer without hemorrhage or perforation - Plan --Troponin x3 --on ASA 81mg --ECHO ans Stress Test --Protonix IV q 12H --Cons GI - Advance Directives Does patient have a Living Will: No Does patient have a Durable POA for Healthcare: No
[2017-11-22 13:39] VITALS: BMI 22.6
[2017-11-22] MEDS: clonazePAM 1 MG TAB PO PRN ×2 (13:55→21:05)
[2017-11-22] MEDS: PANTOPRAZOLE 40 MG INJ IVP SCH ×2 (13:55→20:56)
--- NOTE | 2017-11-22 17:08 | ECHO ---
HEIGHT: 5 ft 2 in WEIGHT: 124 lb 0 oz DATE OF STUDY: 11/22/[address]: Calderon Kerr MD 2-DIMENSIONAL: YES M.MODE: YES DOPPLER: YES COLOR FLOW: YES TDS: PORTABLE: DEFINITY: BUBBLE STUDY: DIAGNOSIS: CHEST PAIN CARDIAC HISTORY: CATHERIZATION: NO SURGERY: NO PROSTHETIC VALVE: NO PACEMAKER: NO MEASUREMENTS (cm) DIASTOLIC (NORMALS) SYSTOLIC (NORMALS) IVSd 0.7 (0.6-1.2) LA Diam 2.8 (1.9-4.0) LVEF 60% LVIDd 4.4 (3.5-5.7) LVIDs 3.0 (2.0-3.5) %FS 32% LVPWd 0.9 (0.6-1.2) Ao Diam 2.9 (2.0-3.7) 2 DIMENSIONAL ASSESSMENT: RIGHT ATRIUM: NORMAL LEFT ATRIUM: NORMAL RIGHT VENTRICLE: NORMAL LEFT VENTRICLE: NORMAL TRICUSPID VALVE: NORMAL MITRAL VALVE: NORMAL PULMONIC VALVE: NORMAL AORTIC VALVE: NORMAL PERICARDIAL EFFUSION: NONE AORTIC ROOT: NORMAL LEFT VENTRICULAR WALL MOTION: NORMAL DOPPLER/COLOR FLOW: NORMAL COMMENTS: NORMAL TWO DIMENSIONAL ECHOCARDIOGRAM WITH DOPPLER. TECHNOLOGIST: TRISTIAN PHAM
[2017-11-22 18:13] LABS: Urine Appearance CLEAR; Urine Bilirubin NEGATIVE (NEG); Urine Blood TRACE (NEG); Urine Color YELLOW; Urine Glucose NEGATIVE (NEG); Urine Microscopic Reflex ORDER UMIC; Urine Protein NEGATIVE (NEG); Urine Specific Gravity 1.015 (1.005-1.030); Urine Urobilinogen 0.2 mg/dL (0.2-1.0); Urine pH 6.5 (5.0-7.0)
[2017-11-22 18:21] LABS: Urine Bacteria <20 /HPF (<20); Urine Culture Reflex Order NOT NEEDED; Urine RBC <5 /HPF (NONE SEEN)
[2017-11-23] MEDS: FENTANYL CITR 100 MCG/2 ML IV PRN ×2 (01:12→05:21)
[2017-11-23 05:17] LABS: Absolute Lymphocytes (CBC) 2.5 K/uL (0.7-4.9); Absolute Monocytes 0.6 K/uL (0.1-1.3); Basophils % 0.4 % (0-1.3); Eosinophils % 7.4 % (0-4.4); Hematocrit 38.4 % (36.0-45.0); MCH 31.6 pg (27.0-35.0); MCV 93.9 fL (80-100); MPV 6.9 fL (7.6-11.3); Monocytes % 6.6 % (3.3-12.3); RBC Red Blood Cell Count 4.09 M/uL (3.86-4.86)
[2017-11-23 05:33] LABS: BUN Blood Urea Nitrogen 10 mg/dL (7-18); Bicarbonate 28 mmol/L (21-32); Glucose Level 102 mg/dL (74-106); Potassium 3.9 mmol/L (3.5-5.1); Sodium Level 141 mmol/L (136-145)
[2017-11-23] MEDS ORDERED: ASPIRIN EC 81 MG TAB PO SCH (09:00)
[2017-11-23] MEDS: PANTOPRAZOLE 40 MG INJ IVP SCH (09:33)
[2017-11-23] MEDS ORDERED: REGADENOSON 0.4 MG/5 ML SYR IV ONE (10:03)
--- NOTE | 2017-11-23 11:15 | RAD REPORT ---
EXAM DESCRIPTION: NM - Rest Stress Cardiac Imaging - 11/23/2017 11:06 am CLINICAL HISTORY: CP Chest pain. COMPARISON: No comparisons TECHNIQUE: The patient was administered approximately 10mCi of Tc 99m Sestamibi prior to resting SPE CT imaging of the heart. The patient was then administered approximately 30 mCi of Tc 99m Sestamibi f ollowing exercise or pharmacologic stress. Multiplanar SPECT images were reviewed. FINDINGS: No stress induced ischemic defect is seen to suggest stress induced ischemia. No fixed def ect is seen to suggest hibernating myocardium or scarred myocardium. The end diastolic volume is 67 ml, the end systolic volume is 28 ml, and the ejection fraction is 57 %. IMPRESSION: No stress induced ischemia.
[2017-11-23] MEDS: clonazePAM 1 MG TAB PO PRN (11:20)
[2017-11-23 12:22] VITALS: BP 112/90; TEMP 96.6
--- NOTE | 2017-11-23 12:48 | TREADPHA ---
DX: CHEST PAIN Date of Study: 11/23/2017 Ht: 5 2 Wt: 124 lb 0 oz Consulting Physician: STACEY MEDICATIONS: TYLENOL, ASPIRIN, SUBLIMAZE, ZOFRAN, PROTONIX, PHENERGAN, KLONOPIN HISTORY: 47 YEAR OLD FEMALE WITH COMPLAINTS OF CHEST PAIN. PHYSICIAL EXAMINATION: RESTING B.P.: 112/78 RESTING H.R.: 76 RESTING EKG: NORMAL PROTOCOL: LEXISCAN EXERCISE TIME: 3:30 B.P. AT PEAK STRESS: 108/67 IMPRESSION: LEXISCAN INJECTED. CARDIOLITE INJECTED PER PROTOCOL. SEE NUCLEAR MEDICINE REPORT. COMPLAINTS OF CHEST PRESSURE 6/10 WITH LEXISCAN ADMINISTRATION. NO SUPRAVENTRICULAR TACHYCARDIA OR VENTRICULAR TACHYCARDIA NOTED.
[2017-11-23 12:49] VITALS: O2SAT 94
--- NOTE | 2017-11-23 15:01 | P.DS ---
Admission Date: 11/22/17 Discharge Date: 11/23/17 Disposition: ROUTINE DISCHARGE Discharge Condition: GOOD Reason for Admission: chest pain Consultations: Cardiology - Problems (1) Chest pain Onset Date: 11/23/17 Status: Acute Qualifiers: Chest pain type: precordial pain Qualified Code(s): R07.2 - Precordial pain (2) Gastric ulcer Onset Date: 11/23/17 Status: Acute Qualifiers: Gastric ulcer chronicity: acute Gastric ulcer complication status: without hemorrhage or perforation Qualified Code(s): K25.3 - Acute gastric ulcer without hemorrhage or perforation (3) Crohns disease Onset Date: 11/23/17 Status: Chronic Qualifiers: Gastrointestinal tract location: small and large intestine Digestive disease complication type: without complication Qualified Code(s): K50.80 - Crohn's disease of both small and large intestine without complications Brief History of Present Illness: See HPI Hospital Course: Overall during the hospital stay patient remained stable Patient was initially admitted to the hospital for atypical chest pain. Troponin x2 were made negative EKG was sinus rhythm. Patient had an echocardiogram done here in the hospital along with a firm stress test. Both of which were negative for any acute abnormality. Patient was thus discharged home under stable condition was asked to follow up with her primary care doctor in about 1-2 weeks post discharge. Vital Signs/Physical Exam: Temp Pulse Resp BP Pulse Ox 96.6 F L 102 H 12 112/90 98 11/23/17 12:00 11/23/17 12:00 11/23/17 12:00 11/23/17 12:00 11/23/17 12:00 General: Alert, In no apparent distress HEENT: Atraumatic, PERRLA, EOMI Neck: Supple, JVD not distended Respiratory: Clear to auscultation bilaterally, Normal air movement Cardiovascular: Regular rate/rhythm, Normal S1 S2 Gastrointestinal: Normal bowel sounds, No tenderness Musculoskeletal: No tenderness Integumentary: No rashes Neurological: Normal speech, Normal tone, Normal affect Lymphatics: No axilla or inguinal lymphadenopathy Laboratory Data at Discharge: WBC 8.8 K/uL (4.3-10.9) D 11/23/17 04:15 Hgb 12.9 g/dL (12.0-15.0) 11/23/17 04:15 Hct 38.4 % (36.0-45.0) 11/23/17 04:15 Plt Count 290 K/uL (152-406) 11/23/17 04:15 PT 11.6 SECONDS (9.5-12.5) 11/22/17 07:40 INR 0.98 11/22/17 07:40 Sodium 141 mmol/L (136-145) 11/23/17 04:15 Potassium 3.9 mmol/L (3.5-5.1) 11/23/17 04:15 BUN 10 mg/dL (7-18) 11/23/17 04:15 Creatinine 0.70 mg/dL (0.55-1.3) 11/23/17 04:15 Glucose 102 mg/dL (74-106) 11/23/17 04:15 Magnesium 2.2 mg/dL (1.8-2.4) 11/22/17 07:40 Total Bilirubin 0.2 mg/dL (0.2-1.0) 11/22/17 07:40 AST 22 U/L (15-37) 11/22/17 07:40 ALT 34 U/L (12-78) 11/22/17 07:40 Alkaline Phosphatase 86 U/L (45-117) 11/22/17 07:40 Troponin I < 0.02 ng/mL (0.0-0.045) 11/22/17 16:14 Lipase 195 U/L (73-393) 11/22/17 07:40 Home Medications: Mesalamine 2 tab PO DAILY 11/22/17 Mirtazapine [Remeron] 30 mg PO BEDTIME 11/22/17 Pantoprazole [Protonix Tab] 40 mg PO DAILY 11/22/17 clonazePAM [Klonopin] 1 mg PO TID 11/22/17
== END 2017-11-23 12:08 | disposition home or self-care (01) ==
LOC: ER 07:15 → ERHOLD 11:13 → 2ND 12:03
PROVIDERS: ADMIT Internal Medicine Hematology & Oncology; ATTEND Internal Medicine Hematology & Oncology
DX: R07.2 Precordial pain (principal); K25.3 Acute gastric ulcer without hemorrhage or perforation; K50.80 Crohn's disease of both small and large intestine without complications; Z88.0 Allergy status to penicillin
CPT/HCPCS: 36415; 71045; 71275; 74175; 78452; 80048 ×2; 80076; 82550; 83690; 83735; 83880; 84484 ×2; 85025 ×2; 85610; 93005; 93017; 93306; 99285; A9500; C9113 ×3; G0378 ×2; J2175; J2405 ×4; J2765; J2785; J3010 ×5; Q9967; 81003; 81015

== ENCOUNTER 2018-04-02 08:57 | Emergency (ER) | payer OTHER ==
--- OUTSIDE RECORDS SUMMARY | 2018-04-02 09:00 | XMS REPORT ---
:1970 [facility] Address [address] [place] [address] [address] [place] [address] Care Team Providers Name Role Phone DR [...] Department ID 2016-11-04 Inpatient C NARESH CASH [facility] [id number] 09:30:00 EDGARD 2016-07-15 2016-07-19 Inpatient 1 HARSHIL ALLEN [facility] [id number] 18:47:00 10:30:00 BLAKE 2013-11-19 2013-11-19 Emergency E OMOK [facility] [id number] 10:08:00 12:55:00 RADHA Results Test Description Test Time Test Comments Text Results Atomic Results Result Comments CT ABDOMEN/PELVIS WITH 2016-07-26 14:26:[address] [id number] IMAGING REPORTPatient Name: Anne DEL TOROte of Service: [id number]: 45 Sex: F Order #: [id number] Room: ERSDOB: 1970 X-Ray Number: [id number] Record Number: [id number] Hospital Number: [id number] Physician: KISHAN MUNOZ -Ordering Physician: HERNANDEZ MONTEMAYOR [...] Syed 2016-07-26 14:23:48 CT ABDOMEN/PELVIS 2016-07-17 02:49:00 [address] IMAG[address] REPORTPatient Name: Manuel DEL TORO of Service: [id number]: 45 Sex: F Order #: [id number] Room: [facility] 2NEDOB: 1970 X-Ray Number: [id number] Record Number: [id number] Hospital Number: [id number] Physician: BLAKE ALLEN -Ordering Physician: AURORA LOWERY [...] 2016-07-17 02:47:19 ABDOMEN 2 VIEWS 2016-07-15 12:14:[address] [id number] IMAGING REPORTPatient Name: Manuel DEL TORO of Service: [id number]: 45 Sex: F Order #: [id number] [facility] 1970 [facility] Number: [id number] Record Number: [id number] Hospital Number: [id number] Physician: Austin TEJEDA Physician: Elvis GARCIA 2 [...]
--- OUTSIDE RECORDS SUMMARY | 2018-04-02 09:00 | XMS REPORT | Clinical Summary ---
:1970 Author Organization [facility] Address [address] [place] [address] Care Team Providers Name Role Phone Eryn Wall MD Primary Care Provider Allergies Active Allergy Reactions Severity Noted Date Comments Ciprofloxacin Swelling Medium 07/18/2017 Promethazine Other (See Comments) 07/18/2017 Face twitch Medications Medication Sig Dispensed Refills Start Date End Date Status pantoprazole Take 40 mg by 0 Active (PROTONIX) 40 MG EC mouth daily. tablet budesonide (UCERIS) Take 9 mg by 0 Active 9 mg tablet, delayed mouth daily as & ext.release needed. methocarbamol Take 500 mg by 0 Active (ROBAXIN) 500 MG mouth every 6 tablet (six) hours. mesalamine (LIALDA) Take 1.2 g by 0 Discontinued 1.2 gram EC tablet mouth daily 8 with breakfast. 2 tablets by mouth metroNIDAZOLE Take 1 tablet 30 tablet 0 07/21/2017 (FLAGYL) 500 MG (500 mg total) 8 tablet by mouth 3 (three) times a day for 10 days. metroNIDAZOLE Take 500 mg by 0 Discontinued (FLAGYL) 500 MG mouth 3 8 tablet (three) times a day. LORAZepam (ATIVAN) 1 Take 1 mg by 0 Discontinued MG tablet mouth 2 (two) 8 [...] Raz Mchugh MD infectious (Primary Dx) after 04/01/2017 Social History Tobacco Use Types Packs/Day Years Used Date Never Smoker Smokeless Tobacco: Never Used Alcohol Use Drinks/Week oz/Week Comments No Sex Assigned at Date Recorded Not on file Job Start 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 Last Filed Vital Signs Vital Sign Reading [...] Health Maintenance Due Date Last Done Comments MMR VACCINES (1 of 1 - Standard 09/13/1972 series) VARICELLA VACCINES (1 of 2 - 2-dose 09/13/1984 adolescent series) CERVICAL CANCER SCREENING 09/13/1992 INFLUENZA VACCINE 11/29/2017 HEPATITIS B VACCINES Aged Out No longer eligible based on patient's age to complete this topic IPV VACCINES Aged Out No longer eligible based on patient's age to complete this topic MENINGOCOCCAL VACCINE Aged Out No longer eligible based on patient's age to complete this topic Implants Implanted Type Area Edge Inker Uppers Device Identifier Shelf Expiration Model / Date Serial / Lot Pain Pump-07/18/2009 Implanted: 07/18/2009 (Quantity not on file) Procedures Procedure Name Priority Date/Time Associated Comments Diagnosis ZZESTIMATED GFR Routine 08/22/2017 5:35 Results for this [...] CDT procedure are in the results section. ZZESTIMATED GFR Routine 08/21/2017 4:10 Results for this [...] CDT procedure are in the results section. ZZESTIMATED GFR Routine 08/18/2017 3:50 Results for this AM CDT procedure are in the results section. BASIC METABOLIC PANEL Routine 08/18/2017 3:50 Results for this AM CDT procedure are in the results section. OCCULT BLOOD, STOOL Routine 08/17/2017 9:30 Results for this AM CDT procedure are in the results section. ZZESTIMATED GFR Routine 08/17/2017 3:50 Results for this [...] CDT procedure are in the results section. ZZESTIMATED GFR Routine 08/16/2017 5:30 Results for this [...] CDT procedure are in the results section. ZZESTIMATED GFR Routine 08/15/2017 5:20 Results for this [...] CDT procedure are in the results section. ZZESTIMATED GFR Routine 07/21/2017 3:53 Results for this [...] CDT procedure are in the results section. ZZESTIMATED GFR Routine 07/19/2017 5:30 Results for this AM CDT procedure are in the results section. HC COMPLETE BLD COUNT Routine 07/19/2017 5:30 Results for this W/AUTO DIFF AM CDT procedure are in the results section. BASIC METABOLIC PANEL Routine 07/19/2017 5:30 Results for this AM CDT procedure are in the results section. after 04/01/2017 Results Estimated GFR (08/22/2017 5:35 AM CDT)Only the most recent of8 resultswithin the time period is included. GFR Non Af Amer >90 mL/min/1.73 m2 [facility] DEPARTMENT OF PATHOLOGY AND GENOMIC MEDICINE GFR Af Amer >90 mL/min/1.73 m2 [facility] DEPARTMENT OF Comment: PATHOLOGY AND GENOMIC [...] specimen Performing Organization Address City/State/Zipcode Phone Number [facility] DEPARTMENT OF PATHOLOGY [address] [place] [address] AND GENOMIC MEDICINE CBC with platelet and differential (08/22/2017 5:35 AM CDT)Only the most recent of6 resultswithin the time period is included. WBC 7.1 4.5 - 11.0 k/uL [facility] DEPARTMENT OF PATHOLOGY AND GENOMIC MEDICINE RBC 3.78 (L) 4.20 - 5.50 m/uL [facility] DEPARTMENT OF PATHOLOGY AND GENOMIC MEDICINE HGB 11.9 (L) 12.0 - 16.0 g/dL [facility] DEPARTMENT OF PATHOLOGY AND GENOMIC MEDICINE HCT 35.9 (L) 37.0 - 47.0 % [facility] DEPARTMENT OF PATHOLOGY AND GENOMIC MEDICINE MCV 95.0 82.0 - 100.0 fL [facility] DEPARTMENT OF PATHOLOGY AND GENOMIC MEDICINE MCH 31.5 27.0 - 34.0 pg [facility] DEPARTMENT OF PATHOLOGY AND GENOMIC MEDICINE MCHC 33.1 31.0 - 37.0 g/dL [facility] DEPARTMENT OF PATHOLOGY AND GENOMIC MEDICINE RDW - SD 43.0 37.0 - 55.0 fL [facility] DEPARTMENT OF PATHOLOGY AND GENOMIC MEDICINE MPV 9.3 6.9 - 11.0 fL [facility] DEPARTMENT OF PATHOLOGY AND GENOMIC MEDICINE Platelet count 230 150 - 400 K/uL [facility] DEPARTMENT OF PATHOLOGY AND GENOMIC MEDICINE Nucleated RBC 0.00 /100 WBC [facility] DEPARTMENT OF PATHOLOGY AND GENOMIC MEDICINE Neutrophils 77.2 (H) 39.0 - 69.0 % [facility] DEPARTMENT OF PATHOLOGY AND GENOMIC MEDICINE Lymphocytes 18.6 (L) 25.0 - 45.0 % [facility] DEPARTMENT OF PATHOLOGY AND GENOMIC MEDICINE Monocytes 3.8 0.0 - 10.0 % [facility] DEPARTMENT OF PATHOLOGY AND GENOMIC MEDICINE Eosinophils 0.0 0.0 - 5.0 % [facility] DEPARTMENT OF PATHOLOGY AND GENOMIC MEDICINE Basophils 0.1 0.0 - 1.0 % [facility] DEPARTMENT OF PATHOLOGY AND GENOMIC MEDICINE Immature granulocytes 0.3 0.0 - 1.0 % [facility] DEPARTMENT OF PATHOLOGY AND GENOMIC MEDICINE Specimen Blood Performing Organization Address City/[facility]/Zipcode Phone Number [facility] DEPARTMENT OF PATHOLOGY [address] [place] [address] AND [facility] Magnesium level (08/22/2017 5:35 AM CDT)Only the most recent of3 resultswithin the time period is included. Magnesium 1.8 1.6 - 2.6 mg/dL [facility] DEPARTMENT OF PATHOLOGY AND GENOMIC MEDICINE Specimen Plasma specimen Performing Organization Address City/[facility]/Zipcode Phone Number [facility] DEPARTMENT OF PATHOLOGY [address] [place] [address] AND [facility] Comprehensive metabolic panel (08/22/2017 5:35 AM CDT)Only the most recent of4 resultswithin the time period is included. Sodium 141 135 - 148 mEq/L [facility] DEPARTMENT OF PATHOLOGY AND GENOMIC MEDICINE Potassium 4.2 3.5 - 5.0 mEq/L [facility] DEPARTMENT OF PATHOLOGY AND GENOMIC MEDICINE Chloride 101 98 - 112 mEq/L [facility] DEPARTMENT OF PATHOLOGY AND GENOMIC MEDICINE CO2 26 24 - 31 mEq/L [facility] DEPARTMENT OF PATHOLOGY AND GENOMIC MEDICINE Anion gap 14 7 - 15 mEq/L [facility] DEPARTMENT OF Comment: PATHOLOGY AND GENOMIC Starting from July , anion gap calculation MEDICINE no longer incorporates potassium. Please note the change. BUN 8 6 - 20 mg/dL [facility] DEPARTMENT OF PATHOLOGY AND GENOMIC MEDICINE Creatinine 0.6 0.5 - 0.9 mg/dL [facility] DEPARTMENT OF PATHOLOGY AND GENOMIC MEDICINE Glucose 119 (H) 65 - 99 mg/dL [facility] DEPARTMENT OF PATHOLOGY AND GENOMIC MEDICINE Calcium 8.9 8.3 - 10.2 mg/dL [facility] DEPARTMENT OF PATHOLOGY AND GENOMIC MEDICINE Protein 6.2 (L) 6.3 - 8.3 g/dL [facility] DEPARTMENT OF PATHOLOGY AND GENOMIC MEDICINE Albumin 3.6 3.5 - 5.0 g/dL [facility] DEPARTMENT OF PATHOLOGY AND GENOMIC MEDICINE A/G ratio 1.4 0.7 - 3.8 [facility] DEPARTMENT OF PATHOLOGY AND GENOMIC MEDICINE Alkaline phosphatase 63 35 - 104 U/L [facility] DEPARTMENT OF PATHOLOGY AND GENOMIC MEDICINE AST 22 10 - 35 U/L [facility] DEPARTMENT OF PATHOLOGY AND GENOMIC MEDICINE ALT 44 5 - 50 U/L [facility] DEPARTMENT OF PATHOLOGY AND GENOMIC MEDICINE Total bilirubin <0.2 0.2 - 1.2 mg/dL [facility] DEPARTMENT OF PATHOLOGY AND GENOMIC [facility] Specimen Plasma specimen Performing Organization Address City/[facility]/Zipcode Phone Number [facility] DEPARTMENT OF PATHOLOGY [address] [place] [address] AND [facility] Sedimentation rate (08/21/2017 4:10 AM CDT)Only the most recent of2 resultswithin the time period is included. Sedimentation rate 21 (H) 0 - 20 mm/hr [facility] DEPARTMENT OF PATHOLOGY AND GENOMIC [facility] Specimen Blood Performing Organization Address [facility] Phone Number [facility] DEPARTMENT OF PATHOLOGY [address] [place] [address] AND [facility] CRP high sensitivity (08/21/2017 4:10 AM CDT) CRP, high sensitivity 0.47 mg/L [facility] DEPARTMENT OF Comment: PATHOLOGY AND GENOMIC Please note this test is different from [...] infection Specimen Plasma specimen Performing Organization Address City/[facility]/Zipcode Phone Number [facility] DEPARTMENT OF PATHOLOGY AND [address] [place] [address] [employer] [facility] Basic metabolic panel (08/21/2017 4:10 AM CDT)Only the most recent of4 resultswithin the time period is included. Sodium 143 135 - 148 mEq/L [facility] DEPARTMENT OF PATHOLOGY AND [employer] [facility] Potassium 3.8 3.5 - 5.0 mEq/L [facility] DEPARTMENT OF PATHOLOGY AND GENOMIC MEDICINE Chloride 106 98 - 112 mEq/L [facility] DEPARTMENT OF PATHOLOGY AND GENOMIC MEDICINE CO2 26 24 - 31 mEq/L [facility] DEPARTMENT OF PATHOLOGY AND GENOMIC MEDICINE Anion gap 11 7 - 15 mEq/L [facility] DEPARTMENT OF Comment: PATHOLOGY AND GENOMIC Starting from July , anion gap calculation MEDICINE no longer incorporates potassium. Please note the change. BUN <4 (L) 6 - 20 mg/dL [facility] DEPARTMENT OF PATHOLOGY AND GENOMIC MEDICINE Creatinine 0.6 0.5 - 0.9 mg/dL [facility] DEPARTMENT OF PATHOLOGY AND GENOMIC MEDICINE Glucose 105 (H) 65 - 99 mg/dL [facility] DEPARTMENT OF PATHOLOGY AND GENOMIC MEDICINE Calcium 9.1 8.3 - 10.2 mg/dL [facility] DEPARTMENT OF PATHOLOGY AND GENOMIC MEDICINE Specimen Plasma specimen Performing Organization Address City/State/Zipcode Phone Number [facility] DEPARTMENT OF PATHOLOGY [address] [place] [address] AND [employer] [facility] Occult blood, stool (08/17/2017 9:30 AM CDT) Occult blood, stool Negative for occult blood. [facility] DEPARTMENT OF Comment: PATHOLOGY AND GENOMIC Specimen Information MEDICINE Specimen Source: Stool Specimen Site: Nonpreserved Specimen Stool - Nonpreserved Performing Organization Address City/State/Zipcode Phone Number [facility] DEPARTMENT OF PATHOLOGY [address] [place] [address] AND [facility] XR Abdomen 1 Vw (08/16/2017 12:25 PM CDT) Narrative Performed At EXAMINATION:XR ABDOMEN 1 VW [facility] CLINICAL HISTORY:Bowel obstruction COMPARISON:None. IMPRESSION: Loops of dilated small bowel compatible with an ileus versus partial small bowel obstruction A spinal stimulator pump projects over the right lower quadrant The gallbladder has been removed Bony structures are within normal limits [id number] Procedure Note Interface, Radiology Results Incoming - 08/16/2017 1:04 PM CDT EXAMINATION: XR ABDOMEN 1 VW CLINICAL HISTORY: Bowel obstruction COMPARISON: None. IMPRESSION: Loops of dilated small bowel compatible with an ileus versus partial small bowel obstruction A spinal stimulator pump projects over the right lower quadrant The gallbladder has been removed Bony structures are within normal limits [id number] Performing Organization Address City/State/Zipcode Phone Number [facility] [address] [place] [address] Gastrointestinal panel (08/15/2017 3:40 AM CDT) Gastrointestinal panel Negative for all pathogens tested: [facility] DEPARTMENT OF Negative for Salmonella PATHOLOGY AND [...] Specimen Stool - Nonpreserved Performing Organization Address City/[facility] Phone Number [facility] DEPARTMENT OF PATHOLOGY AND [address] [place] [address] C difficile toxin (07/19/2017 7:50 PM CDT) Clostridium difficile No Clostridium difficle toxin present [facility] DEPARTMENT OF toxin Comment: PATHOLOGY AND GENOMIC Specimen Information MEDICINE Specimen Source: Stool Specimen Site: Nonpreserved Specimen Stool - Nonpreserved Performing Organization Address City/[facility] Phone Number [facility] DEPARTMENT OF PATHOLOGY AND [address] [place], [place] [phone] [facility] MEDICINE C-reactive protein (07/19/2017 10:08 AM CDT) CRP <0.30 0.00 - 0.50 mg/dL [facility] DEPARTMENT OF PATHOLOGY AND GENOMIC MEDICINE Specimen Plasma specimen Performing Organization Address [facility] Phone Number [facility] DEPARTMENT OF PATHOLOGY AND [address] [place], [place] [phone] [employer] MEDICINE after 04/01/2017 Insurance Payer Benefit Plan / Group Subscriber ID Type Phone Address MEDICARE MEDICARE PART A AND B xxxxxxxxxx Medicare [place], [place] MEDICAID MEDICAID xxxxxxxxx Medicaid
[2018-04-02 09:52] LABS: Urine Bacteria <20 /HPF (<20); Urine Culture Reflex Order NOT NEEDED; Urine Mucus 1+ /HPF (NONE SEEN); Urine RBC <5 /HPF (NONE SEEN)
[2018-04-02 09:52] LABS: Urine Blood NEGATIVE (NEG); Urine Glucose TRACE (NEG); Urine Protein 2+ (NEG); Urine Specific Gravity 1.015 (1.005-1.030)
[2018-04-02 10:24] LABS: Absolute Lymphocytes (CBC) 2.3 K/uL (0.7-4.9); Absolute Monocytes 0.4 K/uL (0.1-1.3); Absolute Neutrophil 6.2 K/uL (1.8-8.0); Basophils % 0.4 % (0-1.3); Eosinophils % 1.3 % (0-4.4); Lymphocytes % 25.6 % (15.3-44.8); MCH 31.6 pg (27.0-35.0); MCV 92.2 fL (80-100); Monocytes % 4.4 % (3.3-12.3); RBC Red Blood Cell Count 4.55 M/uL (3.86-4.86)
[2018-04-02] MEDS ORDERED: MORPHINE 4 MG/ML SYR ONE (10:24)
[2018-04-02] MEDS ORDERED: ONDANSETRON 4 MG/2 ML VIAL ONE (10:25)
[2018-04-02] MEDS ORDERED: NA CHLORIDE 0.9% 1,000 ML ONE (10:25)
[2018-04-02 10:39] LABS: Albumin 4.1 g/dL (3.4-5.0); Bilirubin Direct 0.1 mg/dL (0-0.2); Bilirubin Total 0.3 mg/dL (0.2-1.0); Potassium 3.6 mmol/L (3.5-5.1); Protein, Total 7.7 g/dL (6.4-8.2)
--- NOTE | 2018-04-02 11:38 | RAD REPORT ---
EXAM DESCRIPTION: CT - Abdomen Pelvis W Contrast - 04/02/2018 11:12 am CLINICAL HISTORY: Abdominal pain with dysuria. Crohn's disease COMPARISON: October 2017 TECHNIQUE: Computed axial tomography of the abdomen pelvis was obtained. 100 cc Isovue-300 was admin istered intravenously. Oral contrast was not requested which limits evaluation of bowel. All CT scans are performed using dose optimization technique as appropriate and may include automated exposure control or mA/KV adjustment according to patient size. FINDINGS: The liver, spleen, pancreas, adrenal and kidneys demonstrate no significant abnormality. R enal cysts are unchanged. Gallbladder is been removed. Postsurgical changes involve the bowel. Negative for an obstruction. . There is no evidence of diverticulitis. IMPRESSION: No acute abnormality is displayed.
--- NOTE | 2018-04-02 11:51 | ER ---
Nurse's Notes [facility] Name: Angela Rodriguez Age: 47 yrs Sex: Female : 1970 Arrival Date: 04/02/2018 Time: 09:00 Bed 7 Private MD: out of town, doctor Diagnosis: Dysuria;Abdominal and pelvic pain Presentation: 04/02 09:16 Presenting complaint: Patient states: C/O painful urination x 2 weeks, prescribed jl7 Macrobid March 28, symptoms were getting better yesterday then pain worsened today. Pt has Chron's and pain pump with Dilaudid. Transition of care: patient was not received from another setting of care. Onset of symptoms was March 18, 2018. Risk Assessment: Do you want to hurt yourself or someone else? Patient reports no desire to harm self or others. Initial Sepsis Screen: Does the patient meet any 2 criteria? No. Patient's initial sepsis screen is negative. Does the patient have a suspected source of infection? No. Patient's initial sepsis screen is negative. Care prior to arrival: None. 09:16 Method Of Arrival: Ambulatory jl7 09:16 Acuity: LIZZY 3 jl7 Triage Assessment: 09:20 General: Appears in no apparent distress. uncomfortable, Behavior is calm, cooperative, jl7 appropriate for age. Pain: Complains of pain in left lower back and right lower back Pain currently is 8 out of 10 on a pain scale. Neuro: Level of Consciousness is awake, alert, obeys commands, Oriented to person, place, time, situation. Cardiovascular: Patient's skin is warm and dry. Respiratory: Airway is patent Respiratory effort is even, unlabored, Respiratory pattern is regular, symmetrical. : Urine is [place], pt reports taking Azo Reports burning with urination, pain with urination. Derm: Skin is pink, warm \T\ dry. 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 - Social history:: Smoking status: Patient uses tobacco products, smokes one pack cigarettes per day. - Ebola Screening: : No symptoms or risks identified at this time. Screenin:30 Abuse screen: Denies threats or abuse. Nutritional screening:. Nutritional screening: ca1 No deficits noted. Tuberculosis screening: No symptoms or risk factors identified. Fall Risk None identified. Assessment: 09:25 General: Appears in no apparent distress. well groomed, Behavior is calm, cooperative, ca1 Smells of Reports feeling ill for since 2 weeks ago. Patients states she had bladder infection and was prescribed antibiotics (Macrobid) on from Urgent care. . Pain: Complains of pain in suprapubic area Pain: Complains of pain in right lower back and left lower back Pain does not radiate. Pain currently is 8 out of 10 on a pain scale. Quality of pain is described as sharp, Pain began 2 weeks ago. Is intermittent, Alleviated by Aggravated by movement and urinating. Noted to be guarding, moaning, Also complains of nausea, Current management is with Tylenol, is with is partially effective Goal of pain control is to. Neuro: No deficits noted. Cardiovascular: Rhythm is regular. Cardiovascular: No deficits noted. Heart tones S1 S2 present. Respiratory: No deficits noted. Airway is patent Trachea midline Respiratory effort is even, Respiratory pattern is regular, symmetrical, Breath sounds are clear bilaterally. GI: No signs and/or symptoms were reported involving the gastrointestinal system. Abdomen is round Bowel sounds present X 4 quads. Abd is soft and non tender X 4 quads. : Urine is clear, Reports burning with urination, pain in suprapubic area since 2 weeks ago. with urination, Pain is 8 out of 10 on a pain scale. Denies discharge, inability to void. EENT: No signs and/or symptoms were reported regarding the EENT system. 10:25 Reassessment: Patient is alert, oriented x 3, equal unlabored respirations, skin ca1 warm/dry/pink. Patient states symptoms have improved. 11:30 Reassessment: Patient is alert, oriented x 3, equal unlabored respirations, skin ca1 warm/dry/pink. Patient states feeling better. Patient states symptoms have improved. Vital Signs: 09:20 BP 183 / 101; Pulse 95; Resp 16 S; Pulse Ox 98% on R/A; Weight 61.23 kg (R); Height 5 7 ft. 2 in. (157.48 cm) (R); Pain 8/10; 09:20 Temp 99.6(O); aa5 10:32 BP 135 / 100; Pulse 60 MON; Resp 16 S; Pain 7/10; ca1 11:00 BP 117 / 69; Pulse 68 MON; Resp 16 S; Pulse Ox 96% on R/A; Pain 5/10; ca1 11:30 BP 118 / 80; Pulse 64; Resp 16 S; Pulse Ox 95% on R/A; Pain 5/10; ca1 09:20 Body Mass Index 24.69 (61.23 kg, 157.48 cm) 7 ED Course: 09:00 Patient arrived in ED. mr 09:01 out of town, doctor is Private Physician. mr 09:06 Stefano Trotter PA is PHCP. jr8 09:06 Jorge Alberto Cooley MD is Attending Physician. jr8 09:14 Urine collected: clean catch specimen, sandrine colored, /orange. pt. taking AZO's. 3 09:18 Triage completed. jl7 09:20 Arm band placed on right wrist. jl7 09:20 Bed in low position. Call light in reach. Side rails up X 1. ca1 09:20 Door closed. Warm blanket given. Pillow given. Head of bed elevated. ca1 10:05 Initial lab(s) drawn, by me, sent to lab. Inserted saline lock: 22 gauge in left dh3 forearm, using aseptic technique. Blood collected. 10:05 No provider procedures requiring assistance completed. Initial lab(s) drawn, by ED ca1 staff, sent to lab. 11:[address] via stretcher. ca1 11:[address] vr 11:12 CT completed. Patient tolerated procedure well. Patient moved back from CT. vr 11:20 Patient moved back from CT. ca1 12:37 Krysten Sin, ANANYA is Primary Nurse. ca1 12:38 IV discontinued, intact, bleeding controlled, No redness/swelling at site. Pressure ca1 dressing applied. Administered Medications: 10:15 Drug: Zofran 4 mg Route: IVP; Site: left forearm; ca1 14:56 Follow up: Response: No adverse reaction ca1 10:20 Drug: morphine 4 mg Route: IVP; Site: left forearm; ca1 14:57 Follow up: Response: No adverse reaction; Pain is decreased ca1 10:25 Drug: NS 0.9% 1000 ml Route: IV; Rate: 1000 ml; Site: left forearm; ca1 11:30 Follow up: IV Status: Completed infusion aa5 Outcome: 11:50 Discharge ordered by . jose alejandro 12:38 Discharged to home ambulatory. ca1 12:38 Condition: improved 12:38 Instructed on discharge instructions, follow up and referral plans. medication usage, Demonstrated understanding of instructions, follow-up care, medications, Prescriptions given X 1. 12:41 Patient left the ED. ca1 Signatures: Roopa Medeiros Araceli Syed, RN RN aa5 Ngoc Bassett Josh, PA PA jr8 Trevon Tello RN RN jl7 Tahira Laura Krysten Sin RN RN ca1 Corrections: (The following items were deleted from the chart) 10:51 09:08 Araceli Syed, ANANYA is Primary Nurse. aa5 aa5 :43 11:12 General: Appears in no apparent distress. well groomed, Behavior is calm, ca1 cooperative, Smells of Reports feeling ill for since 2 weeks ago. Patients states she had bladder infection and was prescribed antibiotics (Macrobid) on from Urgent care. . ca1 11:12 Pain: Complains of pain in suprapubic area ca1 ca1 11:12 Pain: Complains of pain in right lower back and left lower back Pain does not ca1 radiate. Pain currently is 8 out of 10 on a pain scale. Quality of pain is described as sharp, Pain began 2 weeks ago. Is intermittent, Alleviated by Aggravated by movement and urinating. Noted to be guarding, moaning, Also complains of nausea, Current management is with Tylenol, is with is partially effective Goal of pain control is to ca1 11:12 Neuro: No deficits noted. ca1 ca1 11:12 Cardiovascular: No deficits noted. Heart tones S1 S2 present ca1 ca1 11:43 11:12 Cardiovascular: Rhythm is regular ca1 ca1 11:12 Respiratory: No deficits noted. Airway is patent Trachea midline Respiratory ca1 effort is even, Respiratory pattern is regular, symmetrical, Breath sounds are clear bilaterally. ca1 11:12 GI: No signs and/or symptoms were reported involving the gastrointestinal system. ca1 Abdomen is round Bowel sounds present X 4 quads. Abd is soft and non tender X 4 quads. ca1 11:12 : Urine is clear, Reports burning with urination, pain in suprapubic area since ca1 2 weeks ago. with urination, Pain is 8 out of 10 on a pain scale. Denies discharge, inability to void, ca1 11:12 EENT: No signs and/or symptoms were reported regarding the EENT system. ca1 ca1 12:03 12:00 Reassessment: Patient is alert, oriented x 3, equal unlabored respirations, skin ca1 warm/dry/pink. Patient states feeling better. Patient states symptoms have improved. ca1 13:38 12:38 IV discontinued, intact, bleeding controlled, No redness/swelling at site. ca1 Pressure dressing applied, ca1
--- NOTE | 2018-04-02 11:51 | EDPHYS ---
Physician Documentation [facility] Name: Angela Rodriguez Age: 47 yrs Sex: Female : 1970 Arrival Date: 04/02/2018 Time: 09:00 Bed 7 Private MD: out of town, doctor ED Physician Jorge Alberto Cooley HPI: 04/02 09:59 This 47 yrs old Female presents to ER via Ambulatory with complaints of jr8 Urinary Problem/abdominal pain. 09:59 Onset: The symptoms/episode began/occurred acutely, 2 day(s) ago. Associated signs and jr8 symptoms: Pertinent positives: abdominal pain, diarrhea, dysuria. Modifying factors: The patient symptoms are alleviated by nothing, the patient symptoms are aggravated by nothing. It is unknown whether or not the patient has had similar symptoms in the past. The patient has been recently seen by a physician:. Patient started with UTI about 1 week ago. Had her antibiotics switched after getting culture report back. Came to ED today for continued symptoms but now having nausea and diarrhea. History of bowel obstruction in past as well . 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 - Social history:: Smoking status: Patient uses tobacco products, smokes one pack cigarettes per day. - Ebola Screening: : No symptoms or risks identified at this time. ROS: 09:59 Eyes: Negative for injury, pain, redness, and discharge, ENT: Negative for injury, jr8 pain, and discharge, Neck: Negative for injury, pain, and swelling, Cardiovascular: Negative for chest pain, palpitations, and edema, Respiratory: Negative for shortness of breath, cough, wheezing, and pleuritic chest pain, MS/Extremity: Negative for injury and deformity, Skin: Negative for injury, rash, and discoloration, Neuro: Negative for headache, weakness, numbness, tingling, and seizure. 09:59 Abdomen/GI: Positive for abdominal pain, nausea, diarrhea, Negative for constipation, abdominal distension, anorexia, dysphagia, hematemesis, black/tarry stool, rectal pain, rectal bleeding, bowel incontinence, flatulence. 09:59 Back: Positive for pain at rest, Negative for pain with movement, radiated pain. 09:59 : Positive for urinary symptoms. Exam: 09:59 Eyes: Pupils equal round and reactive to light, extra-ocular motions intact. Lids and jr8 lashes normal. Conjunctiva and sclera are non-icteric and not injected. Cornea within normal limits. Periorbital areas with no swelling, redness, or edema. ENT: Nares patent. No nasal discharge, no septal abnormalities noted. Tympanic membranes are normal and external auditory canals are clear. Oropharynx with no redness, swelling, or masses, exudates, or evidence of obstruction, uvula midline. Mucous membranes moist. Neck: Trachea midline, no thyromegaly or masses palpated, and no cervical lymphadenopathy. Supple, full range of motion without nuchal rigidity, or vertebral point tenderness. No Meningismus. Cardiovascular: Regular rate and rhythm with a normal S1 and S2. No gallops, murmurs, or rubs. Normal PMI, no JVD. No pulse deficits. Respiratory: Lungs have equal breath sounds bilaterally, clear to auscultation and percussion. No rales, rhonchi or wheezes noted. No increased work of breathing, no retractions or nasal flaring. Back: No spinal tenderness. No costovertebral tenderness. Full range of motion. Skin: Warm, dry with normal turgor. Normal color with no rashes, no lesions, and no evidence of cellulitis. MS/ Extremity: Pulses equal, no cyanosis. Neurovascular intact. Full, normal range of motion. Neuro: Awake and alert, GCS 15, oriented to person, place, time, and situation. Cranial nerves II-XII grossly intact. Motor strength 5/5 in all extremities. Sensory grossly intact. Cerebellar exam normal. Normal gait. 09:59 Abdomen/GI: Inspection: abdomen appears normal, Bowel sounds: active, all quadrants, Palpation: soft, in all quadrants, mild abdominal tenderness, in the suprapubic area, mass, is not appreciated, rebound tenderness, is not appreciated, voluntary guarding, is not appreciated, involuntary guarding, is not appreciated, no appreciated organomegaly, Indicators: McBurney's point is not tender, Chang's sign is negative, Rovsing's sign is negative, Liver: tenderness, is not appreciated. Vital Signs: 09:20 BP 183 / 101; Pulse 95; Resp 16 S; Pulse Ox 98% on R/A; Weight 61.23 kg (R); Height 5 jl7 ft. 2 in. (157.48 cm) (R); Pain 8/10; 09:20 Temp 99.6(O); aa5 10:32 BP 135 / 100; Pulse 60 MON; Resp 16 S; Pain 7/10; ca1 11:00 BP 117 / 69; Pulse 68 MON; Resp 16 S; Pulse Ox 96% on R/A; Pain 5/10; ca1 11:30 BP 118 / 80; Pulse 64; Resp 16 S; Pulse Ox 95% on R/A; Pain 5/10; ca1 09:20 Body Mass Index 24.69 (61.23 kg, 157.48 cm) 7 MDM: 09:07 Patient medically screened. 8 11:49 Data reviewed: vital signs, nurses notes, lab test result(s), radiologic studies, CT jr8 scan. Data interpreted: Pulse oximetry: on room air is 96 %. Interpretation: normal. Counseling: I had a detailed discussion with the patient and/or guardian regarding: the historical points, exam findings, and any diagnostic results supporting the discharge/admit diagnosis, lab results, radiology results, the need for outpatient follow up, a family practitioner, to return to the emergency department if symptoms worsen or persist or if there are any questions or concerns that arise at home. ED course: Discussed with patient that there are no acute abdominal findings on images or labs. UTI seems to have cleared up based on micro but to finish antibiotics. Patient good with this and will follow up with PCP. 04/02 09:15 Order name: Urine Microscopic Only 8 04/02 09:30 Order name: Basic Metabolic Panel 8 04/02 09:30 Order name: CBC with Diff jr8 04/02 09:30 Order name: Creatinine for Radiology jr8 04/02 09:30 Order name: Hepatic Function [facility] 04/02 09:30 Order name: Lipase [facility] 04/02 09:39 Order name: Urine Dipstick--Ancillary (enter results) 04/02 09:39 Order name: Urine --Ancillary (enter results) 04/02 09:53 Order name: Urine Microscopic Only; Complete Time: 09:55 EDMS 04/02 09:53 Order name: Urine --Ancillary; Complete Time: 09:55 EDMS 04/02 09:53 Order name: Urine Dipstick-Ancillary; Complete Time: 09:55 EDMS 04/02 10:32 Order name: CBC with Automated Diff; Complete Time: 10:54 EDMS 04/02 10:38 Order name: Creatinine (Radiology Only); Complete Time: 10:54 EDMS 04/02 10:39 Order name: Basic Metabolic Panel; Complete Time: 10:54 EDMS 04/02 09:15 Order name: Urine Test (obtain specimen); Complete Time: 09:55 [facility] 04/02 09:15 Order name: Urine Dipstick-Ancillary (obtain specimen); Complete Time: 09:56 [facility] 04/02 09:30 Order name: IV Saline Lock; Complete Time: 10:07 [facility] 04/02 09:30 Order name: Labs collected and sent; Complete Time: 10:08 [facility] 04/02 10:39 Order name: Liver (Hepatic) Function; Complete Time: 10:54 EDMS 04/02 10:39 Order name: Lipase; Complete Time: 10:54 EDMS 04/02 10:54 Order name: CT Abd/Pelvis - W/Contrast [facility] 04/02 11:39 Order name: CT; Complete Time: 11:40 EDMS Administered Medications: 10:15 Drug: Zofran 4 mg Route: IVP; Site: left forearm; ca1 14:56 Follow up: Response: No adverse reaction ca1 10:20 Drug: morphine 4 mg Route: IVP; Site: left forearm; ca1 14:57 Follow up: Response: No adverse reaction; Pain is decreased ca1 10:25 Drug: NS 0.9% 1000 ml Route: IV; Rate: 1000 ml; Site: left forearm; ca1 11:30 Follow up: IV Status: Completed infusion aa5 Disposition: 18:05 Co-signature as Attending Physician, Jorge Alberto Cooley MD I agree with the assessment and no plan of care. Disposition: 04/02/18 11:50 Discharged to Home. Impression: Dysuria, Abdominal and pelvic pain. - Condition is Stable. - Discharge Instructions: Abdominal Pain, Adult, Dysuria. - Prescriptions for Tylenol- Codeine #3 300-30 mg Oral Tablet - take 2 tablets by ORAL route every 6 hours As needed; 12 tablet. - Medication Reconciliation Form, Thank You Letter, Antibiotic Education, Prescription Opioid Use form. - Follow up: Private Physician; When: 2 - 3 days; Reason: Recheck today's complaints, Continuance of care, Re-evaluation by your physician. - Problem is new. - Symptoms have improved. Signatures: Dispatcher [employer] EDVT Jorge Alberto Cooley MD MD cha Roszak, Josh, PA PA jr8 Trevon Tello, RN RN jl7 Krysten Sin RN RN ca1 Araceli Syed RN aa5 Corrections: (The following items were deleted from the chart) 12:41 11:50 04/02/2018 11:50 Discharged to Home. Impression: Dysuria; Abdominal and pelvic ca1 pain. Condition is Stable. Forms are Medication Reconciliation Form, Thank You Letter, Antibiotic Education, Prescription Opioid Use. Follow up: Private Physician; When: 2 - 3 days; Reason: Recheck today's complaints, Continuance of care, Re-evaluation by your physician. Problem is new. Symptoms have improved. jr8
[2018-04-02 13:01] VITALS: BP 118/80; O2SAT 95
== END 2018-04-02 12:41 | disposition home or self-care (01) ==
LOC: ER 08:57
DX: R30.0 Dysuria (principal); E03.9 Hypothyroidism, unspecified; G40.909 Epilepsy, unspecified, not intractable, without status epilepticus; F31.9 Bipolar disorder, unspecified; Z88.1 Allergy status to other antibiotic agents; Z88.8 Allergy status to other drugs, medicaments and biological substances
CPT/HCPCS: 36415; 74177; 80048; 80076; 81025; 83690; 85025; 96361; 96374; 96375; 99284; J2405; J7030; Q9967; 81003; 81015

== ENCOUNTER 2018-04-08 09:20 | Emergency (ER) | payer OTHER ==
--- OUTSIDE RECORDS SUMMARY | 2018-04-08 09:22 | XMS REPORT | Clinical Summary ---
:1970 Author Organization [facility] Address [address] [place] [address] Care Team Providers Name Role Phone Eryn [...] Raz Mchugh MD infectious (Primary Dx) after 04/07/2017 Social History Tobacco Use Types Packs/Day Years [...] complete this topic Implants Implanted Type Area Scouring Pads Supervisor Device Identifier Shelf Expiration Model / Date [...] procedure are in the results section. after 04/07/2017 Results Estimated GFR (08/22/2017 5:35 AM CDT)Only the most recent of8 resultswithin the time period is included. GFR Non Af Amer >90 mL/min/1.73 m2 [facility] DEPARTMENT OF PATHOLOGY AND GENOMIC MEDICINE GFR Af Amer >90 mL/min/1.73 m2 [facility] DEPARTMENT OF Comment: PATHOLOGY AND GENOMIC Chronic [...] specimen Performing Organization Address City/State/Zipcode Phone Number [facility] DEPARTMENT OF PATHOLOGY [address] [place] [address] AND [employer] [facility] CBC with platelet and differential (08/22/2017 5:35 AM CDT)Only the most recent of6 resultswithin the time period is included. WBC 7.1 4.5 - 11.0 k/uL [facility] DEPARTMENT OF PATHOLOGY AND GENOMIC MEDICINE RBC 3.78 (L) 4.20 - 5.50 m/uL [facility] DEPARTMENT OF PATHOLOGY AND GENOMIC MEDICINE HGB 11.9 (L) 12.0 - 16.0 g/dL [facility] DEPARTMENT OF PATHOLOGY AND GENOMIC MEDICINE HCT 35.9 (L) 37.0 - 47.0 % [facility] DEPARTMENT OF PATHOLOGY AND GENOMIC MEDICINE MCV 95.0 82.0 - 100.0 fL [facility] DEPARTMENT OF PATHOLOGY AND GENOMIC MEDICINE MCH 31.5 27.0 - 34.0 pg [facility] DEPARTMENT OF PATHOLOGY AND GENOMIC MEDICINE MCHC 33.1 31.0 - 37.0 g/dL [facility] DEPARTMENT OF PATHOLOGY AND GENOMIC MEDICINE RDW - SD 43.0 37.0 - 55.0 fL [facility] DEPARTMENT OF PATHOLOGY AND GENOMIC MEDICINE MPV 9.3 6.9 - 11.0 fL [facility] DEPARTMENT OF PATHOLOGY AND GENOMIC MEDICINE Platelet count 230 150 - 400 K/uL [facility] DEPARTMENT OF PATHOLOGY AND GENOMIC MEDICINE Nucleated RBC 0.00 /100 WBC [facility] DEPARTMENT OF PATHOLOGY AND GENOMIC MEDICINE Neutrophils 77.2 (H) 39.0 - 69.0 % [facility] DEPARTMENT OF PATHOLOGY AND GENOMIC MEDICINE Lymphocytes 18.6 (L) 25.0 - 45.0 % [facility] DEPARTMENT OF PATHOLOGY AND GENOMIC MEDICINE Monocytes 3.8 0.0 - 10.0 % [facility] DEPARTMENT OF PATHOLOGY AND GENOMIC MEDICINE Eosinophils 0.0 0.0 - 5.0 % [facility] DEPARTMENT OF PATHOLOGY AND GENOMIC MEDICINE Basophils 0.1 0.0 - 1.0 % [facility] DEPARTMENT OF PATHOLOGY AND GENOMIC MEDICINE Immature granulocytes 0.3 0.0 - 1.0 % [facility] DEPARTMENT OF PATHOLOGY AND GENOMIC MEDICINE Specimen Blood Performing Organization Address City/State/Zipcode Phone Number [facility] DEPARTMENT OF PATHOLOGY [address] [place] [address] AND [facility] Magnesium level (08/22/2017 5:35 AM CDT)Only the most recent of3 resultswithin the time period is included. Magnesium 1.8 1.6 - 2.6 mg/dL [facility] DEPARTMENT OF PATHOLOGY AND GENOMIC MEDICINE Specimen Plasma specimen Performing Organization Address City/[facility]/Zipcode Phone Number [facility] DEPARTMENT OF PATHOLOGY [address] [place] [address] AND [facility] Comprehensive metabolic panel (08/22/2017 5:35 AM CDT)Only the most recent of4 resultswithin the time period is included. Sodium 141 135 - 148 mEq/L [facility] DEPARTMENT OF PATHOLOGY AND GENOMIC MEDICINE Potassium 4.2 3.5 - 5.0 mEq/L [facility] DEPARTMENT OF PATHOLOGY AND GENOMIC MEDICINE Chloride 101 98 - 112 mEq/L [facility] DEPARTMENT OF PATHOLOGY AND GENOMIC MEDICINE CO2 26 24 - 31 mEq/L [facility] DEPARTMENT OF PATHOLOGY AND GENOMIC MEDICINE Anion gap 14 7 - 15 mEq/L [facility] DEPARTMENT OF Comment: PATHOLOGY AND GENOMIC Starting from July , anion gap calculation MEDICINE no longer incorporates potassium. Please note the change. BUN 8 6 - 20 mg/dL [facility] DEPARTMENT OF PATHOLOGY AND GENOMIC MEDICINE Creatinine 0.6 0.5 - 0.9 mg/dL [facility] DEPARTMENT OF PATHOLOGY AND GENOMIC MEDICINE Glucose 119 (H) 65 - 99 mg/dL [facility] DEPARTMENT OF PATHOLOGY AND GENOMIC MEDICINE Calcium 8.9 8.3 - 10.2 mg/dL [facility] DEPARTMENT OF PATHOLOGY AND GENOMIC MEDICINE Protein 6.2 (L) 6.3 - 8.3 g/dL [facility] DEPARTMENT OF PATHOLOGY AND GENOMIC MEDICINE Albumin 3.6 3.5 - 5.0 g/dL [facility] DEPARTMENT OF PATHOLOGY AND GENOMIC MEDICINE A/G ratio 1.4 0.7 - 3.8 [facility] DEPARTMENT OF PATHOLOGY AND GENOMIC MEDICINE Alkaline phosphatase 63 35 - 104 U/L [facility] DEPARTMENT OF PATHOLOGY AND GENOMIC MEDICINE AST 22 10 - 35 U/L [facility] DEPARTMENT OF PATHOLOGY AND GENOMIC MEDICINE ALT 44 5 - 50 U/L [facility] DEPARTMENT OF PATHOLOGY AND GENOMIC MEDICINE Total bilirubin <0.2 0.2 - 1.2 mg/dL [facility] DEPARTMENT OF PATHOLOGY AND GENOMIC [facility] Specimen Plasma specimen Performing Organization Address City/[facility] Phone Number [facility] DEPARTMENT OF PATHOLOGY [address] [place] [address] AND [facility] Sedimentation rate (08/21/2017 4:10 AM CDT)Only the most recent of2 resultswithin the time period is included. Sedimentation rate 21 (H) 0 - 20 mm/hr [facility] DEPARTMENT OF PATHOLOGY AND GENOMIC MEDICINE Specimen Blood Performing Organization Address [facility]ode Phone Number [facility] DEPARTMENT OF PATHOLOGY [id number] [place] [address] AND [facility] CRP high sensitivity (08/21/2017 4:10 AM CDT) CRP, high sensitivity 0.47 mg/L [facility] DEPARTMENT OF Comment: PATHOLOGY AND GENOMIC Please [...] infection Specimen Plasma specimen Performing Organization Address City/[facility]/Zipcode Phone Number [facility] DEPARTMENT OF PATHOLOGY AND [address] [place] [id number] [facility] Basic metabolic panel (08/21/2017 4:10 AM CDT)Only the most recent of4 resultswithin the time period is included. Sodium 143 135 - 148 mEq/L [facility] DEPARTMENT OF PATHOLOGY AND GENOMIC MEDICINE Potassium 3.8 3.5 - 5.0 mEq/L [facility] DEPARTMENT OF PATHOLOGY AND GENOMIC MEDICINE Chloride 106 98 - 112 mEq/L [facility] DEPARTMENT OF PATHOLOGY AND GENOMIC MEDICINE CO2 26 24 - 31 mEq/L [facility] DEPARTMENT OF PATHOLOGY AND GENOMIC MEDICINE Anion gap 11 7 - 15 mEq/L [facility] DEPARTMENT OF Comment: PATHOLOGY AND GENOMIC Starting from July , anion gap calculation MEDICINE no longer incorporates potassium. Please note the change. BUN <4 (L) 6 - 20 mg/dL [facility] DEPARTMENT OF PATHOLOGY AND GENOMIC MEDICINE Creatinine 0.6 0.5 - 0.9 mg/dL [facility] DEPARTMENT OF PATHOLOGY AND GENOMIC MEDICINE Glucose 105 (H) 65 - 99 mg/dL [facility] DEPARTMENT OF PATHOLOGY AND GENOMIC MEDICINE Calcium 9.1 8.3 - 10.2 mg/dL [facility] DEPARTMENT OF PATHOLOGY AND GENOMIC MEDICINE Specimen Plasma specimen Performing Organization Address City/[facility]ode Phone Number [facility] DEPARTMENT OF PATHOLOGY [address] [place] [address] AND [employer] [facility] Occult blood, stool (08/17/2017 9:30 AM CDT) Occult blood, stool Negative for occult blood. [facility] DEPARTMENT OF Comment: PATHOLOGY AND GENOMIC Specimen Information MEDICINE Specimen Source: Stool Specimen Site: Nonpreserved Specimen Stool - Nonpreserved Performing Organization Address City/[facility] Cent[facility]ode Phone Number [facility] DEPARTMENT OF PATHOLOGY [address] [place] [address] AND [employer] [facility] XR Abdomen 1 Vw (08/16/2017 12:25 PM CDT) Narrative Performed At EXAMINATION:XR ABDOMEN 1 VW [facility] CLINICAL HISTORY:Bowel obstruction COMPARISON:None. IMPRESSION: Loops of dilated small bowel compatible with an ileus versus partial small bowel obstruction A spinal stimulator pump projects over the right lower quadrant The gallbladder has been removed Bony structures are within normal limits [id number] Procedure Note Interface, Radiology Results Incoming - 08/16/2017 1:04 PM CDT EXAMINATION: XR ABDOMEN 1 VW CLINICAL HISTORY: Bowel obstruction COMPARISON: None. IMPRESSION: Loops of dilated small bowel compatible with an ileus versus partial small bowel obstruction A spinal stimulator pump projects over the right lower quadrant The gallbladder has been removed Bony structures are within normal limits [id number] Performing Organization Address City/[facility]/Zipcode Phone Number [facility] [address] [place] [address] Gastrointestinal panel (08/15/2017 3:40 AM CDT) Gastrointestinal panel Negative for all pathogens tested: [facility] DEPARTMENT OF Negative for Salmonella PATHOLOGY [...] Specimen Stool - Nonpreserved Performing Organization Address [facility] Phone Number [facility] DEPARTMENT OF PATHOLOGY AND [address] [place], [place] [phone] [facility] MEDICINE C difficile toxin (07/19/2017 7:50 PM CDT) Clostridium difficile No Clostridium difficle toxin present [facility] DEPARTMENT OF toxin Comment: PATHOLOGY AND GENOMIC Specimen Information MEDICINE Specimen Source: Stool Specimen Site: Nonpreserved Specimen Stool - Nonpreserved Performing Organization Address [facility] Number [facility] DEPARTMENT OF PATHOLOGY AND [address] [place], [place] [phone] [facility] MEDICINE C-reactive protein (07/19/2017 10:08 AM CDT) CRP <0.30 0.00 - 0.50 mg/dL [facility] DEPARTMENT OF PATHOLOGY AND GENOMIC MEDICINE Specimen Plasma specimen Performing Organization Address [facility] Phone Number [facility] DEPARTMENT OF PATHOLOGY AND [address] [place] [address] [employer] MEDICINE after 04/07/2017 Insurance Payer Benefit Plan / Group Subscriber ID Type Phone Address MEDICARE MEDICARE PART A AND B xxxxxxxxxx Medicare [place], [place] MEDICAID MEDICAID xxxxxxxxx Medicaid
--- OUTSIDE RECORDS SUMMARY | 2018-04-08 09:23 | XMS REPORT ---
:1970 [facility] Address [address] [place] [address] [address] [place] [address] Care Team Providers Name Role Phone DR [...] Department ID 2016-11-04 Inpatient C NARESH CASH [facility] [id number] 09:30:00 EDGARD 2016-07-15 2016-07-19 Inpatient 1 HARSHIL ALLEN [facility] [id number] 18:47:00 10:30:00 BLAKE 2013-11-19 2013-11-19 Emergency E MOOK [facility] [id number] 10:08:00 12:55:00 RAD[facility] Results Test Description Test Time Test Comments Text Results Atomic Results Result Comments CT ABDOMEN/PELVIS WITH 2016-07-26 14:26:[address] [id number] IMAGING REPORTPatient Name: Anne DEL TOROte of Service: [id number]: 45 Sex: F Order #: [id number] Room: ERSDOB: 1970 X-Ray Number: [id number] Record Number: [id number] Hospital Number: [id number] Physician: KISHAN MUNOZ -Ordering Physician: HERNANDEZ MONTEMAYOR [...] Syed 2016-07-26 14:23:48 CT ABDOMEN/PELVIS 2016-07-17 02:49:00 [address] IMAG[address] REPORTPatient Name: Manuel DEL TORO of Service: [id number]: 45 Sex: F Order #: [id number] Room: [facility] 2NEDOB: 1970 X-Ray Number: [id number] Record Number: [id number] Hospital Number: [id number] Physician: BLAKE ALLEN -Ordering Physician: AURORA LOWERY [...] 2016-07-17 02:47:19 ABDOMEN 2 VIEWS 2016-07-15 12:14:[address] [id number] IMAGING REPORTPatient Name: Manuel DEL TORO of Service: [id number]: 45 Sex: F Order #: [id number] [facility] 1970 [facility] Number: [id number] Record Number: [id number] Hospital Number: [id number] Physician: Austin TEJEDA Physician: Elvis GARCIA 2 [...]
[2018-04-08] MEDS ORDERED: HYDROCODONE/APAP 5/325 MG TAB ONE (10:54)
--- NOTE | 2018-04-08 11:03 | ER ---
Nurse's Notes [facility] Name: Angela Rodriguez Age: 47 yrs Sex: Female : 1970 Arrival Date: 04/08/2018 Time: 09:23 Bed 20 Private MD: Diagnosis: Fracture of fourth metatarsal bone;Fracture of fifth metatarsal bone Presentation: 04/08 09:45 Presenting complaint: Patient states: R foot pain and swelling after stepping off a ss culvert 2 days ago. Transition of care: patient was not received from another setting of care. Onset of symptoms was April 06, 2018. Risk Assessment: Do you want to hurt yourself or someone else? Patient reports no desire to harm self or others. Initial Sepsis Screen: Does the patient meet any 2 criteria? No. Patient's initial sepsis screen is negative. Does the patient have a suspected source of infection? No. Patient's initial sepsis screen is negative. Care prior to arrival: None. 09:45 Method Of Arrival: Ambulatory ss 09:45 Acuity: LIZZY 4 ss Historical: - Allergies: 09:47 Ciprofloxacin; ss 09:47 Phenergan; ss - PMHx: 09:47 Bipolar disorder; Chronic pain; Crohn's; Endometrosis; Hypothyroidism; Seizures; ss - PSHx: 09:47 Hysterectomy; Bowel resection; Cholecystectomy; ss - Immunization history:: Adult Immunizations up to date. - Social history:: Smoking status: Patient uses tobacco products, smokes one pack cigarettes per day. - Ebola Screening: : Patient denies exposure to infectious person Patient denies travel to an Ebola-affected area in the 21 days before illness onset. Screenin:48 Abuse screen: Denies threats or abuse. Denies injuries from another. Nutritional ss screening: No deficits noted. Tuberculosis screening: No symptoms or risk factors identified. Never had TB. Fall Risk Fall in past 12 months (25 points). Secondary diagnosis (15 points) impaired mobility, No IV (0 pts). Ambulatory Aid- None/Bed Rest/Nurse Assist (0 pts). Gait- Normal/Bed Rest/Wheelchair (0 pts) Mental Status- Oriented to own ability (0 pts). Assessment: 10:00 General: Appears in no apparent distress. uncomfortable, Behavior is calm, cooperative. em Pain: Complains of pain in lateral aspect of right foot Pain currently is 8 out of 10 on a pain scale. Pain began 2-3 days ago. Neuro: Level of Consciousness is awake, alert, obeys commands, Oriented to person, place, time, situation. Cardiovascular: Capillary refill < 3 seconds Patient's skin is warm and dry. Respiratory: Airway is patent Respiratory effort is even, unlabored, Respiratory pattern is regular, symmetrical. GI: Abdomen is flat. : No signs and/or symptoms were reported regarding the genitourinary system. EENT: No signs and/or symptoms were reported regarding the EENT system. Derm: Skin is intact, is healthy with good turgor, Skin is pink, warm \T\ dry. Musculoskeletal: Circulation, motion, and sensation intact. Capillary refill < 3 seconds, Swelling present in lateral aspect of right foot. Injury Description: slip injury, denies LOC or trauma to head. 10:40 Reassessment: Patient appears in no apparent distress at this time. Patient and/or em family updated on plan of care and expected duration. Pain level reassessed. Patient is alert, oriented x 3, equal unlabored respirations, skin warm/dry/pink. request something for pain, provider notified, new medication orders received, pending X-rays. Vital Signs: 09:47 BP 153 / 97; Pulse 70; Resp 16; Temp 98.5(TE); Pulse Ox 99% on R/A; Weight 61.23 kg; ss Height 5 ft. 2 in. (157.48 cm); Pain 8/10; 09:47 Body Mass Index 24.69 (61.23 kg, 157.48 cm) ED Course: 09:23 Patient arrived in ED. rg4 09:25 Anay Olea FNP-C is PHCP. snw 09:25 Jorge Alberto Cooley MD is Attending Physician. snw 09:46 Triage completed. ss 09:47 Arm band placed on right wrist. ss 09:48 Patient has correct armband on for positive identification. Bed in low position. Call ss light in reach. Side rails up X 1. Adult w/ patient. 09:50 Piero Astudillo LVN is Primary Nurse. em 10:51 X-ray completed. Portable x-ray completed in exam room. Patient tolerated procedure la2 well. 10:55 Foot Right 3 View XRAY In Process Unspecified. EDMS 11:00 Ruben Gonzalez MD is Referral Physician. snw 11:03 Referral Physician role handed off by Ruben Gonzalez MD snw 11:03 Ryan Haywood MD is Referral Physician. snw 11:20 No provider procedures requiring assistance completed. Patient did not have IV access em during this emergency room visit. Crutch training done. Orthoglass splint: Posterior long leg splint applied on right leg. Administered Medications: 10:52 Drug: [place] 5 mg-325 mg 1 tabs Route: PO; em 11:28 Follow up: Response: No adverse reaction; Pain is decreased em Outcome: 11:02 Discharge ordered by MD. snw 11:31 Discharged to home with crutches, with family. em 11:31 Condition: good 11:31 Discharge instructions given to patient, family, Instructed on discharge instructions, follow up and referral plans. medication usage, Demonstrated understanding of instructions, follow-up care, medications, Prescriptions given X 1. 11:32 Patient left the ED. em Signatures: Dispatcher [employer] EDWV Anay Olea, DRAIN TECHNICIAN-C DRAIN TECHNICIAN-Daniaw Piero Astudillo, SEMICONDUCTOR PROCESSING TECHNICIAN SEMICONDUCTOR PROCESSING TECHNICIAN em Alena Youngblood, ANANYA RN Nettie Camacho rg4 Oriana Walsh
--- NOTE | 2018-04-08 11:03 | EDPHYS ---
Physician Documentation [facility] Name: Angela Rodriguez Age: 47 yrs Sex: Female : 1970 Arrival Date: 04/08/2018 Time: 09:23 Bed 20 Private MD: Jorge Alberto Toussaint HPI: 04/08 11:07 This 47 yrs old Female presents to ER via Ambulatory with complaints of Foot snw Injury. 11:07 The patient presents with pain, swelling, tenderness. The complaints affect the lateral snw aspect of right foot. Context: The problem was sustained outdoors, resulted from a mis-step, the patient can partially bear weight, the patient is able to ambulate. Onset: The symptoms/episode began/occurred suddenly, 2 day(s) ago, and became persistent. Associated signs and symptoms: Pertinent positives: swelling. Treatment prior to arrival includes: no previous treatment. Severity of symptoms: At their worst the symptoms were moderate. The patient has not experienced similar symptoms in the past. The patient has not recently seen a physician. denies other injury. Historical: - Allergies: 09:47 Ciprofloxacin; ss 09:47 Phenergan; ss - PMHx: 09:47 Bipolar disorder; Chronic pain; Crohn's; Endometrosis; Hypothyroidism; Seizures; ss - PSHx: 09:47 Hysterectomy; Bowel resection; Cholecystectomy; ss - Immunization history:: Adult Immunizations up to date. - Social history:: Smoking status: Patient uses tobacco products, smokes one pack cigarettes per day. - Ebola Screening: : Patient denies exposure to infectious person Patient denies travel to an Ebola-affected area in the 21 days before illness onset. ROS: 11:06 Constitutional: Negative for fever, chills, and weight loss, Eyes: Negative for injury, snw pain, redness, and discharge, ENT: Negative for injury, pain, and discharge, Neck: Negative for injury, pain, and swelling, Cardiovascular: Negative for chest pain, palpitations, and edema, Respiratory: Negative for shortness of breath, cough, wheezing, and pleuritic chest pain, Abdomen/GI: Negative for abdominal pain, nausea, vomiting, diarrhea, and constipation, Back: Negative for injury and pain, : Negative for injury, bleeding, discharge, and swelling, Skin: Negative for injury, rash, and discoloration, Neuro: Negative for headache, weakness, numbness, tingling, and seizure, Psych: Negative for depression, anxiety, suicide ideation, homicidal ideation, and hallucinations. 11:06 MS/extremity: Positive for injury or acute deformity, contusion, decreased range of motion, ecchymosis, pain, swelling, tenderness, of the dorsum of right foot. Exam: 11:05 Constitutional: This is a well developed, well nourished patient who is awake, alert, snw and in no acute distress. Head/Face: Normocephalic, atraumatic. Eyes: Pupils equal round and reactive to light, extra-ocular motions intact. Lids and lashes normal. Conjunctiva and sclera are non-icteric and not injected. Cornea within normal limits. Periorbital areas with no swelling, redness, or edema. ENT: Nares patent. No nasal discharge, no septal abnormalities noted. Tympanic membranes are normal and external auditory canals are clear. Oropharynx with no redness, swelling, or masses, exudates, or evidence of obstruction, uvula midline. Mucous membranes moist. Neck: Trachea midline, no thyromegaly or masses palpated, and no cervical lymphadenopathy. Supple, full range of motion without nuchal rigidity, or vertebral point tenderness. No Meningismus. Chest/axilla: Normal chest wall appearance and motion. Nontender with no deformity. No lesions are appreciated. Cardiovascular: Regular rate and rhythm with a normal S1 and S2. No gallops, murmurs, or rubs. Normal PMI, no JVD. No pulse deficits. Respiratory: Lungs have equal breath sounds bilaterally, clear to auscultation and percussion. No rales, rhonchi or wheezes noted. No increased work of breathing, no retractions or nasal flaring. Abdomen/GI: Soft, non-tender, with normal bowel sounds. No distension or tympany. No guarding or rebound. No evidence of tenderness throughout. Back: No spinal tenderness. No costovertebral tenderness. Full range of motion. Skin: Warm, dry with normal turgor. Normal color with no rashes, no lesions, and no evidence of cellulitis. Neuro: Awake and alert, GCS 15, oriented to person, place, time, and situation. Cranial nerves II-XII grossly intact. Motor strength 5/5 in all extremities. Sensory grossly intact. Cerebellar exam normal. Normal gait. Psych: Awake, alert, with orientation to person, place and time. Behavior, mood, and affect are within normal limits. 11:05 Musculoskeletal/extremity: Extremities: grossly normal except: contusion, decreased ROM, swelling, tenderness, ROM: no acute changes, Circulation is intact in all extremities. Sensation intact. Vital Signs: 09:47 BP 153 / 97; Pulse 70; Resp 16; Temp 98.5(TE); Pulse Ox 99% on R/A; Weight 61.23 kg; ss Height 5 ft. 2 in. (157.48 cm); Pain 12/08; 09:47 Body Mass Index 24.69 (61.23 kg, 157.48 cm) ss MDM: 09:40 Patient medically screened. snw 11:06 Data reviewed: vital signs, nurses notes. Data interpreted: Pulse oximetry: on room air snw is 99 %. Interpretation: normal. Counseling: I had a detailed discussion with the patient and/or guardian regarding: the historical points, exam findings, and any diagnostic results supporting the discharge/admit diagnosis, the presence of at least one elevated blood pressure reading (>120/80) during this emergency department visit, radiology results, the need for outpatient follow up, to return to the emergency department if symptoms worsen or persist or if there are any questions or concerns that arise at home. Special discussion: Based on the history and exam findings, there is no indication for further emergent testing or inpatient evaluation. I discussed with the patient/guardian the need to see the orthopedic surgeon for further evaluation of the symptoms. 04/08 09:56 Order name: Foot Right 3 View XRAY; Complete Time: 11:14 snw 04/08 11:00 Order name: Posterior Orthoglass Ankle Splint; Complete Time: 11:28 snw 04/08 11:00 Order name: Crutches; Complete Time: 11:28 snw 04/08 11:00 Order name: Crutch Training; Complete Time: 11:28 snw Administered Medications: 10:52 Drug: [place] 5 mg-325 mg 1 tabs Route: PO; em 11:28 Follow up: Response: No adverse reaction; Pain is decreased em Disposition: 04/09 06:33 Co-signature as Attending Physician, Jorge Alberto Cooley MD I agree with the assessment and no plan of care. Disposition: 04/08/18 11:02 Discharged to Home. Impression: Fracture of fourth metatarsal bone, Fracture of fifth metatarsal bone. - Condition is Stable. - Discharge Instructions: Elastic Bandage and RICE, Cast or Splint Care, Adult, Crutch Use, Metatarsal Fracture. - Prescriptions for Tylenol- Codeine #3 300-30 mg Oral Tablet - take 2 tablets by ORAL route every 6 hours As needed; 18 tablet. - Work release form, Medication Reconciliation Form, Thank You Letter, Antibiotic Education, Prescription Opioid Use form. - Follow up: Ruben Gonzalez MD; When: 2 - 3 days; Reason: Recheck today's complaints, Continuance of care. Follow up: Ryan Haywood MD; When: 1 - 2 days; Reason: Recheck today's complaints, Continuance of care, Re-evaluation by your physician. Signatures: Dispatcher [employer] EDMS Jorge Alberto Cooley MD MD cha Therrien, Shelly, LABORER STORES-C LABORER STORES-Csnw Piero Astudillo, MARKETING SERVICES COORDINATOR MARKETING SERVICES COORDINATOR Alena Marin RN RN ss Corrections: (The following items were deleted from the chart) 04/08 11:03 11:02 04/08/2018 11:02 Discharged to Home. Impression: Fracture of fourth metatarsal snw bone; Fracture of fifth metatarsal bone. Condition is Stable. Forms are Medication Reconciliation Form, Thank You Letter, Antibiotic Education, Prescription Opioid Use. Follow up: Ruben Gonzalez; When: 2 - 3 days; Reason: Recheck today's complaints, Continuance of care. snw 11:32 11:03 04/08/2018 11:02 Discharged to Home. Impression: Fracture of fourth metatarsal em bone; Fracture of fifth metatarsal bone. Condition is Stable. Discharge Instructions: Elastic Bandage and RICE, Cast or Splint Care, Adult, Crutch Use, Metatarsal Fracture. Prescriptions for Tylenol-Codeine #3 300-30 mg Oral Tablet - take 2 tablets by ORAL route every 6 hours As needed; 18 tablet. and Forms are Medication Reconciliation Form, Thank You Letter, Antibiotic Education, Prescription Opioid Use. Follow up: Ryan Haywood; When: 1 - 2 days; Reason: Recheck today's complaints, Continuance of care, Re-evaluation by your physician. snw
--- NOTE | 2018-04-08 11:11 | RAD REPORT ---
EXAM DESCRIPTION: RAD - Foot Right 3 View - 04/08/2018 10:55 am CLINICAL HISTORY: Pain;Swelling COMPARISON: No comparisons FINDINGS: Transverse fractures involve the distal second and third metatarsal necks with minimal dis placement. Moderate adjacent soft tissue swelling seen. Small plantar calcaneal spur.
[2018-04-08 11:37] VITALS: BP 153/97; TEMP 98.5; O2SAT 99
== END 2018-04-08 11:32 | disposition home or self-care (01) ==
LOC: ER 09:20
PROC: 2W3LX1Z Immobilization of Right Lower Extremity using Splint (ICD-10-PCS; principal; 2018-04-08)
DX: S92.341A Displaced fracture of fourth metatarsal bone, right foot, initial encounter for closed fracture (principal); S92.351A Displaced fracture of fifth metatarsal bone, right foot, initial encounter for closed fracture; S92.321A Displaced fracture of second metatarsal bone, right foot, initial encounter for closed fracture; S92.331A Displaced fracture of third metatarsal bone, right foot, initial encounter for closed fracture; M77.31 Calcaneal spur, right foot; F17.210 Nicotine dependence, cigarettes, uncomplicated; X58.XXXA Exposure to other specified factors, initial encounter
CPT/HCPCS: 99284

== ENCOUNTER 2018-05-18 16:22 | Emergency (ER) | payer OTHER ==
--- OUTSIDE RECORDS SUMMARY | 2018-05-18 16:24 | XMS REPORT ---
:1970 [facility] [address] [place] [address] [address] [place] [address] Care Team Providers Name Role Phone DR [...] Department ID 2016-11-04 Inpatient C NARESH CASH [facility] [id number] 09:30:00 EDGARD 2016-07-15 2016-07-19 Inpatient 1 HARSHIL [facility] [id number] 18:47:00 10:30:00 BLAKE 2013-11-19 2013-11-19 Emergency E MOOK [facility] [id number] 10:08:00 12:55:00 RADHA Results Test Description Test Time Test Comments Text Results Atomic Results Result Comments CT ABDOMEN/PELVIS WITH 2016-07-26 14:26:[address] [id number] IMAGING REPORTPatient Name: Anne DEL TOROte of Service: [id number]: 45 Sex: F Order #: [id number] Room: ERSDOB: 1970 X-Ray Number: [id number] Record Number: [id number] Hospital Number: [id number] Physician: KISHAN MUNOZ -Ordering Physician: HERNANDEZ MONTEMAYOR [...] Syed 2016-07-26 14:23:48 CT ABDOMEN/PELVIS 2016-07-17 02:49:00 [address] IMAG[address] REPORTPatient Name: Manuel DEL TORO of Service: [id number]: 45 Sex: F Order #: [id number] Room: [facility] 2NEDOB: 1970 X-Ray Number: [id number] Record Number: [id number] Hospital Number: [id number] Physician: BLAKE ALLEN -Ordering Physician: AURORA LOWERY [...] 2016-07-17 02:47:19 ABDOMEN 2 VIEWS 2016-07-15 12:14:[address] [id number] IMAGING REPORTPatient Name: Manuel DEL TORO of Service: [id number]: 45 Sex: F Order #: [id number] [facility] 1970 [facility] Number: [id number] Record Number: [id number] Hospital Number: [id number] Physician: Austin TEJEDA Physician: Elvis GARCIA 2 [...]
--- OUTSIDE RECORDS SUMMARY | 2018-05-18 16:24 | XMS REPORT | Clinical Summary ---
:1970 Author Organization [facility] Address [address] [place] [address] Care Team Providers Name Role Phone Eryn [...] Raz Mchugh MD infectious (Primary Dx) after 05/17/2017 Social History Tobacco Use Types Packs/Day Years [...] INFLUENZA VACCINE 11/29/2017 Implants Implanted Type Area Medical Lab Assistant Device Identifier Shelf Expiration Model / Date [...] procedure are in the results section. after 05/17/2017 Results Estimated GFR (08/22/2017 5:35 AM CDT)Only the most recent of8 resultswithin the time period is included. GFR Non Af Amer >90 mL/min/1.73 m2 [facility] DEPARTMENT OF PATHOLOGY AND GENOMIC MEDICINE GFR Af Amer >90 mL/min/1.73 m2 [facility] DEPARTMENT OF Comment: PATHOLOGY AND GENOMIC [...] specimen Performing Organization Address City/State/Zipcode Phone Number [facility] DEPARTMENT OF PATHOLOGY [address] [place] [address] AND GENOMIC MEDICINE CBC with platelet and differential (08/22/2017 5:35 AM CDT)Only the most recent of6 resultswithin the time period is included. WBC 7.1 4.5 - 11.0 k/uL [facility] DEPARTMENT OF PATHOLOGY AND GENOMIC MEDICINE RBC 3.78 (L) 4.20 - 5.50 m/uL [facility] DEPARTMENT OF PATHOLOGY AND GENOMIC MEDICINE HGB 11.9 (L) 12.0 - 16.0 g/dL [facility] DEPARTMENT OF PATHOLOGY AND GENOMIC MEDICINE HCT 35.9 (L) 37.0 - 47.0 % [facility] DEPARTMENT OF PATHOLOGY AND GENOMIC MEDICINE MCV 95.0 82.0 - 100.0 fL [facility] DEPARTMENT OF PATHOLOGY AND GENOMIC MEDICINE MCH 31.5 27.0 - 34.0 pg [facility] DEPARTMENT OF PATHOLOGY AND GENOMIC MEDICINE MCHC 33.1 31.0 - 37.0 g/dL [facility] DEPARTMENT OF PATHOLOGY AND GENOMIC MEDICINE RDW - SD 43.0 37.0 - 55.0 fL [facility] DEPARTMENT OF PATHOLOGY AND GENOMIC MEDICINE MPV 9.3 6.9 - 11.0 fL [facility] DEPARTMENT OF PATHOLOGY AND GENOMIC MEDICINE Platelet count 230 150 - 400 K/uL [facility] DEPARTMENT OF PATHOLOGY AND GENOMIC MEDICINE Nucleated RBC 0.00 /100 WBC [facility] DEPARTMENT OF PATHOLOGY AND GENOMIC MEDICINE Neutrophils 77.2 (H) 39.0 - 69.0 % [facility] DEPARTMENT OF PATHOLOGY AND GENOMIC MEDICINE Lymphocytes 18.6 (L) 25.0 - 45.0 % [facility] DEPARTMENT OF PATHOLOGY AND GENOMIC MEDICINE Monocytes 3.8 0.0 - 10.0 % [facility] DEPARTMENT OF PATHOLOGY AND GENOMIC MEDICINE Eosinophils 0.0 0.0 - 5.0 % [facility] DEPARTMENT OF PATHOLOGY AND GENOMIC MEDICINE Basophils 0.1 0.0 - 1.0 % [facility] DEPARTMENT OF PATHOLOGY AND GENOMIC MEDICINE Immature granulocytes 0.3 0.0 - 1.0 % [facility] DEPARTMENT OF PATHOLOGY AND GENOMIC MEDICINE Specimen Blood Performing Organization Address City/[facility]/Zipcode Phone Number [facility] DEPARTMENT OF PATHOLOGY [id number] [place] [address]. [place] [address] AND [employer] [facility] Magnesium level (08/22/2017 5:35 AM CDT)Only the most recent of3 resultswithin the time period is included. Magnesium 1.8 1.6 - 2.6 mg/dL [facility] DEPARTMENT OF PATHOLOGY AND GENOMIC MEDICINE Specimen Plasma specimen Performing Organization Address [facility] Phone Number [facility] DEPARTMENT OF PATHOLOGY [address] [place] [address]. [place] [address] AND [employer] [facility] Comprehensive metabolic panel (08/22/2017 5:35 AM CDT)Only the most recent of4 resultswithin the time period is included. Sodium 141 135 - 148 mEq/L [facility] DEPARTMENT OF PATHOLOGY AND GENOMIC MEDICINE Potassium 4.2 3.5 - 5.0 mEq/L [facility] DEPARTMENT OF PATHOLOGY AND GENOMIC MEDICINE Chloride 101 98 - 112 mEq/L [facility] DEPARTMENT OF PATHOLOGY AND GENOMIC MEDICINE CO2 26 24 - 31 mEq/L [facility] DEPARTMENT OF PATHOLOGY AND GENOMIC MEDICINE Anion gap 14 7 - 15 mEq/L [facility] DEPARTMENT OF Comment: PATHOLOGY AND GENOMIC Starting from July , anion gap calculation MEDICINE no longer incorporates potassium. Please note the change. BUN 8 6 - 20 mg/dL [facility] DEPARTMENT OF PATHOLOGY AND GENOMIC MEDICINE Creatinine 0.6 0.5 - 0.9 mg/dL [facility] DEPARTMENT OF PATHOLOGY AND GENOMIC MEDICINE Glucose 119 (H) 65 - 99 mg/dL [facility] DEPARTMENT OF PATHOLOGY AND GENOMIC MEDICINE Calcium 8.9 8.3 - 10.2 mg/dL [facility] DEPARTMENT OF PATHOLOGY AND GENOMIC MEDICINE Protein 6.2 (L) 6.3 - 8.3 g/dL [facility] DEPARTMENT OF PATHOLOGY AND GENOMIC MEDICINE Albumin 3.6 3.5 - 5.0 g/dL [facility] DEPARTMENT OF PATHOLOGY AND GENOMIC MEDICINE A/G ratio 1.4 0.7 - 3.8 [facility] DEPARTMENT OF PATHOLOGY AND GENOMIC MEDICINE Alkaline phosphatase 63 35 - 104 U/L [facility] DEPARTMENT OF PATHOLOGY AND GENOMIC MEDICINE AST 22 10 - 35 U/L [facility] DEPARTMENT OF PATHOLOGY AND GENOMIC MEDICINE ALT 44 5 - 50 U/L [facility] DEPARTMENT OF PATHOLOGY AND GENOMIC MEDICINE Total bilirubin <0.2 0.2 - 1.2 mg/dL [facility] DEPARTMENT OF PATHOLOGY AND GENOMIC MEDICINE Specimen Plasma specimen Performing Organization Address [facility] Phone Number [facility] DEPARTMENT OF PATHOLOGY [address] [place] [address] AND [facility] Sedimentation rate (08/21/2017 4:10 AM CDT)Only the most recent of2 resultswithin the time period is included. Sedimentation rate 21 (H) 0 - 20 mm/hr [facility] DEPARTMENT OF PATHOLOGY AND GENOMIC MEDICINE Specimen Blood Performing Organization Address [facility] Phone Number [facility] DEPARTMENT OF PATHOLOGY [address] [place] [address] AND [facility] CRP high sensitivity (08/21/2017 4:10 AM CDT) CRP, high sensitivity 0.47 mg/L [facility] DEPARTMENT OF Comment: PATHOLOGY AND [facility] Please note this test is different [...] infection Specimen Plasma specimen Performing Organization Address [facility] Vegas[facility] Phone Number [facility] DEPARTMENT OF PATHOLOGY AND [address] [place] [phone] [place] [address] Basic metabolic panel (08/21/2017 4:10 AM CDT)Only the most recent of4 resultswithin the time period is included. Sodium 143 135 - 148 mEq/L [facility] DEPARTMENT OF PATHOLOGY AND GENOMIC MEDICINE Potassium 3.8 3.5 - 5.0 mEq/L [facility] DEPARTMENT OF PATHOLOGY AND GENOMIC MEDICINE Chloride 106 98 - 112 mEq/L [facility] DEPARTMENT OF PATHOLOGY AND GENOMIC MEDICINE CO2 26 24 - 31 mEq/L [facility] DEPARTMENT OF PATHOLOGY AND GENOMIC MEDICINE Anion gap 11 7 - 15 mEq/L [facility] DEPARTMENT OF Comment: PATHOLOGY AND GENOMIC Starting from July , anion gap calculation MEDICINE no longer incorporates potassium. Please note the change. BUN <4 (L) 6 - 20 mg/dL [facility] DEPARTMENT OF PATHOLOGY AND GENOMIC MEDICINE Creatinine 0.6 0.5 - 0.9 mg/dL [facility] DEPARTMENT OF PATHOLOGY AND GENOMIC MEDICINE Glucose 105 (H) 65 - 99 mg/dL [facility] DEPARTMENT OF PATHOLOGY AND GENOMIC MEDICINE Calcium 9.1 8.3 - 10.2 mg/dL [facility] DEPARTMENT OF PATHOLOGY AND GENOMIC MEDICINE Specimen Plasma specimen Performing Organization Address City/[facility]/Zipcode Phone Number [facility] DEPARTMENT OF PATHOLOGY [address] [place] [address] AND [facility] Occult blood, stool (08/17/2017 9:30 AM CDT) Occult blood, stool Negative for occult blood. [facility] DEPARTMENT OF Comment: PATHOLOGY AND GENOMIC Specimen Information MEDICINE Specimen Source: Stool Specimen Site: Nonpreserved Specimen Stool - Nonpreserved Performing Organization Address [facility] Phone Number [facility] DEPARTMENT OF PATHOLOGY [address] [place] [address] AND [facility] XR Abdomen 1 Vw (08/16/2017 12:25 PM CDT) Narrative Performed At EXAMINATION:XR ABDOMEN 1 VW [facility] CLINICAL HISTORY:Bowel obstruction COMPARISON:None. IMPRESSION: Loops of dilated small bowel compatible with an ileus versus partial small bowel obstruction A spinal stimulator pump projects over the right lower quadrant The gallbladder has been removed Bony structures are within normal limits [id number] Procedure Note Interface, Radiology Results Incoming - 08/16/2017 1:04 PM CDT EXAMINATION: XR ABDOMEN 1 VW CLINICAL HISTORY: Bowel obstruction COMPARISON: None. IMPRESSION: Loops of dilated small bowel compatible with an ileus versus partial small bowel obstruction A spinal stimulator pump projects over the right lower quadrant The gallbladder has been removed Bony structures are within normal limits [id number] Performing Organization Address City/[facility]/Zipcode Phone Number [facility] [address] [place] [address] Gastrointestinal panel (08/15/2017 3:40 AM CDT) Gastrointestinal panel Negative for all pathogens tested: [facility] DEPARTMENT OF Negative for Salmonella PATHOLOGY [...] Specimen Stool - Nonpreserved Performing Organization Address [facility] Phone Number [facility] DEPARTMENT OF PATHOLOGY AND [address] [place], [place] [phone] [employer] MEDICINE C difficile toxin (07/19/2017 7:50 PM CDT) Clostridium difficile No Clostridium difficle toxin present [facility] DEPARTMENT OF toxin Comment: PATHOLOGY AND GENOMIC Specimen Information MEDICINE Specimen Source: Stool Specimen Site: Nonpreserved Specimen Stool - Nonpreserved Performing Organization Address [facility] Phone Number [facility] DEPARTMENT OF PATHOLOGY AND [address] [place] [phone] [employer] MEDICINE C-reactive protein (07/19/2017 10:08 AM CDT) CRP <0.30 0.00 - 0.50 mg/dL [facility] DEPARTMENT OF PATHOLOGY AND GENOMIC MEDICINE Specimen Plasma specimen Performing Organization Address [facility] Phone Number [facility] DEPARTMENT OF PATHOLOGY AND [address] [place] [phone] GENOMIC MEDICINE after 05/17/2017 Insurance Payer Benefit Plan / Group Subscriber ID Type Phone Address MEDICARE MEDICARE PART A AND B xxxxxxxxxx Medicare [place] MEDICAID MEDICAID xxxxxxxxx Medicaid
[2018-05-18 16:49] LABS: Urine Blood NEGATIVE (NEG); Urine Glucose 1+ (NEG); Urine Protein 3+ (NEG); Urine Specific Gravity 1.015 (1.005-1.030)
[2018-05-18 17:06] LABS: Urine Bacteria 20-50 /HPF (<20); Urine RBC NONE SEEN /HPF (NONE SEEN)
[2018-05-18 17:07] LABS: Calcium Oxalate Crystals- Ur MODERATE (NONE SEEN); Urine Culture Reflex Order NOT NEEDED; Urine Mucus 4+ /HPF (NONE SEEN)
--- NOTE | 2018-05-18 18:05 | RAD REPORT ---
EXAM DESCRIPTION: CT - Stone Protocol - 05/18/2018 5:53 pm CLINICAL HISTORY: Dysuria, history of Crohn's disease, history of partial bowel resection and cholec ystectomy COMPARISON: CT March 2018 TECHNIQUE: Axial 5 mm thick images were obtained without oral or IV contrast. The [id number] span s the entirety of the system including uppermost abdomen and lung bases. All CT scans are performed using dose optimization technique as appropriate and may include automated exposure control or mA/KV adjustment according to patient size. FINDINGS: No hydronephrosis is present and no obstructing ureteral calculi. No suspicious renal mass es. Isodense masses and pyelonephritis are not excluded on a stone protocol CT scan. No urinary bladd er suspicious finding. No significant adrenal finding. The liver, spleen and pancreas show no acute findings. Cholecystectomy clips are present. No biliary tree dilatation. No suspicious bowel findings. Right-sided bowel anastomotic site shows no suspicious finding. No hernia, mass or bulky lymphadenopathy noted. No free air, free fluid or inflammatory stranding. No significant bony abnormality. IMPRESSION: No hydronephrosis, obstructing calculus or other acute finding. Isodense masses and pyelonephritis are not excluded on stone protocol technique. Remainder the study, as detailed above shows no acute or suspicious finding. No significant change fr om prior imaging.
--- NOTE | 2018-05-18 19:16 | ER ---
Nurse's Notes [facility] Name: Angela Rodriguez Age: 47 yrs Sex: Female : 1970 Arrival Date: 05/18/2018 Time: 16:25 Bed 27 Private MD: Diagnosis: Urinary tract infection, site not specified Presentation: 05/18 16:28 Presenting complaint: Patient states: burning with urination x 2 days. Transition of sv care: patient was not received from another setting of care. Onset of symptoms was May 16, 2018. Care prior to arrival: None. 16:28 Method Of Arrival: Ambulatory sv 16:28 Acuity: LIZZY 4 sv 17:41 Risk Assessment: Do you want to hurt yourself or someone else? Patient reports no mg2 desire to harm self or others. Initial Sepsis Screen: Does the patient meet any 2 criteria? No. Patient's initial sepsis screen is negative. Does the patient have a suspected source of infection? No. Patient's initial sepsis screen is negative. 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 - Social history:: Smoking status: Patient uses tobacco products, smokes one pack cigarettes per day. - Ebola Screening: : No symptoms or risks identified at this time. Screenin:40 Abuse screen: Denies threats or abuse. Denies injuries from another. Nutritional mg2 screening: No deficits noted. Tuberculosis screening: No symptoms or risk factors identified. Fall Risk None identified. Assessment: 18:17 General: Appears in no apparent distress. comfortable, Behavior is calm, cooperative. mg2 Pain: Complains of pain in suprapubic Pain does not radiate. Pain currently is 6 out of 10 on a pain scale. Quality of pain is described as burning, aching, Pain began gradually. Neuro: Level of Consciousness is awake, alert, obeys commands, Oriented to person, place, time, situation. Cardiovascular: Capillary refill < 3 seconds Patient's skin is warm and dry. Respiratory: Airway is patent Respiratory effort is even, unlabored, Respiratory pattern is regular, symmetrical. GI: No signs and/or symptoms were reported involving the gastrointestinal system. : Reports burning with urination. EENT: No signs and/or symptoms were reported regarding the EENT system. Derm: Skin is intact, is healthy with good turgor, Skin is pink, warm \T\ dry. normal. Musculoskeletal: Circulation, motion, and sensation intact. Capillary refill < 3 seconds. 19:25 Reassessment: Patient appears in no apparent distress at this time. Patient and/or mg2 family updated on plan of care and expected duration. Pain level reassessed. Patient is alert, oriented x 3, equal unlabored respirations, skin warm/dry/pink. Vital Signs: 16:30 BP 139 / 96; Pulse 77; Resp 16; Temp 98.2; Pulse Ox 100% ; Weight 61.23 kg; Height 5 sv ft. 2 in. (157.48 cm); Pain 8/10; 19:26 BP 129 / 78; Pulse 80; Resp 18; Pulse Ox 100% on R/A; Pain 4/10; mg2 16:30 Body Mass Index 24.69 (61.23 kg, 157.48 cm) sv ED Course: 16:25 Patient arrived in ED. rg4 16:29 Triage completed. sv 16:30 Arm band placed on. sv 16:43 Anay Olea FNP-C is PHCP. snw 16:43 Richy Mathew MD is Attending Physician. snw 17:20 PHCP role handed off by Anay Olea FNP-C kb 17:20 Tayler Huffman FNP-C is PHCP. kb 17:[address] via wheelchair. ka 17:37 Luís Rahman, RN is Primary Nurse. mg2 17:38 No provider procedures requiring assistance completed. Patient did not have IV access mg2 during this emergency room visit. 17:41 Patient has correct armband on for positive identification. mg2 17:52 CT completed. Patient tolerated procedure well. Patient moved back from CT. ka 17:53 CT Stone Protocol In Process Unspecified. EDMS Administered Medications: 19:17 Drug: TORadol 60 mg Route: IM; Site: right gluteus; mg2 19:25 Follow up: Response: No adverse reaction; Medication administered at discharge. mg2 19:24 Drug: Macrobid 100 mg Route: PO; mg2 19:25 Follow up: Response: No adverse reaction; Medication administered at discharge. mg2 19:24 Drug: Pyridium 200 mg Route: PO; mg2 19:24 Follow up: Response: No adverse reaction; Medication administered at discharge. mg2 Outcome: 19:15 Discharge ordered by MD. kb 19:26 Discharged to home ambulatory, with family. mg2 19:26 Condition: stable 19:26 Discharge instructions given to patient, family, Instructed on discharge instructions, follow up and referral plans. medication usage, Demonstrated understanding of instructions, follow-up care, medications, Prescriptions given X 2. 19:27 Patient left the ED. mg2 Signatures: Dispatcher [employer] EDMS Tayler Huffman, NICOLE-C TILE MECHANIC HELPER-Pricila Bal, RN RN Anay [place], TILE MECHANIC HELPER-C TILE MECHANIC HELPER-Daniaw Sheba [place] Rubi rg4 Luís Rahman RN RN mg2
--- NOTE | 2018-05-18 19:16 | EDPHYS ---
Physician Documentation [facility] Name: Angela Rodriguez Age: 47 yrs Sex: Female : 1970 Arrival Date: 05/18/2018 Time: 16:25 Bed 27 Private MD: ED Physician Richy Mathew HPI: 05/18 20:57 This 47 yrs old Female presents to ER via Ambulatory with complaints of Pain kb With Urination. 20:57 The patient presents with urinary symptoms, dysuria, frequency. Onset: The kb symptoms/episode began/occurred 1.5 day(s) ago. Modifying factors: The symptoms are alleviated by nothing, the symptoms are aggravated by urinating. Associated signs and symptoms: Pertinent positives: dysuria, urinary frequency. Severity of symptoms: At their worst the symptoms were moderate, in the emergency department the symptoms are unchanged. The patient has not experienced similar symptoms in the past. The patient has not recently seen a physician. 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 - Social history:: Smoking status: Patient uses tobacco products, smokes one pack cigarettes per day. - Ebola Screening: : No symptoms or risks identified at this time. ROS: 20:56 Constitutional: Negative for fever, chills, and weight loss, Cardiovascular: Negative kb for chest pain, palpitations, and edema, Respiratory: Negative for shortness of breath, cough, wheezing, and pleuritic chest pain, Abdomen/GI: Negative for abdominal pain, nausea, vomiting, diarrhea, and constipation, Back: Negative for injury and pain, MS/Extremity: Negative for injury and deformity, Skin: Negative for injury, rash, and discoloration, Neuro: Negative for headache, weakness, numbness, tingling, and seizure. 20:56 : Positive for urinary symptoms, urinary frequency, burning with urination. Exam: 20:56 Constitutional: This is a well developed, well nourished patient who is awake, alert, kb and in no acute distress. Head/Face: Normocephalic, atraumatic. ENT: Nares patent. No nasal discharge, no septal abnormalities noted. Tympanic membranes are normal and external auditory canals are clear. Oropharynx with no redness, swelling, or masses, exudates, or evidence of obstruction, uvula midline. Mucous membranes moist. Neck: Trachea midline, no thyromegaly or masses palpated, and no cervical lymphadenopathy. Supple, full range of motion without nuchal rigidity, or vertebral point tenderness. No Meningismus. Chest/axilla: Normal chest wall appearance and motion. Nontender with no deformity. No lesions are appreciated. Cardiovascular: Regular rate and rhythm with a normal S1 and S2. No gallops, murmurs, or rubs. Normal PMI, no JVD. No pulse deficits. Respiratory: Lungs have equal breath sounds bilaterally, clear to auscultation and percussion. No rales, rhonchi or wheezes noted. No increased work of breathing, no retractions or nasal flaring. Abdomen/GI: Soft, non-tender, with normal bowel sounds. No distension or tympany. No guarding or rebound. No evidence of tenderness throughout. Skin: Warm, dry with normal turgor. Normal color with no rashes, no lesions, and no evidence of cellulitis. MS/ Extremity: Pulses equal, no cyanosis. Neurovascular intact. Full, normal range of motion. Neuro: Awake and alert, GCS 15, oriented to person, place, time, and situation. Cranial nerves II-XII grossly intact. Motor strength 5/5 in all extremities. Sensory grossly intact. Cerebellar exam normal. Normal gait. Vital Signs: 16:30 BP 139 / 96; Pulse 77; Resp 16; Temp 98.2; Pulse Ox 100% ; Weight 61.23 kg; Height 5 sv ft. 2 in. (157.48 cm); Pain 8/10; 19:26 BP 129 / 78; Pulse 80; Resp 18; Pulse Ox 100% on R/A; Pain 4/10; mg2 16:30 Body Mass Index 24.69 (61.23 kg, 157.48 cm) sv MDM: 16:50 Patient medically screened. snw 19:14 Data reviewed: vital signs, nurses notes. Data interpreted: Pulse oximetry: on room air kb is 100 %. Interpretation: normal. Counseling: I had a detailed discussion with the patient and/or guardian regarding: the historical points, exam findings, and any diagnostic results supporting the discharge/admit diagnosis, lab results, radiology results, the need for outpatient follow up, a family practitioner, to return to the emergency department if symptoms worsen or persist or if there are any questions or concerns that arise at home. 05/18 16:34 Order name: Urine Microscopic Only; Complete Time: 17:09 kb 05/18 16:39 Order name: Urine Culture iw 05/18 16:43 Order name: Urine Dipstick--Ancillary (enter results); Complete Time: 16:50 eb 05/18 16:43 Order name: Urine --Ancillary (enter results); Complete Time: 16:50 eb 05/18 17:17 Order name: CT Stone Protocol; Complete Time: 18:41 snw 05/18 16:34 Order name: Urine Test (obtain specimen); Complete Time: 16:39 kb 05/18 16:34 Order name: Urine Dipstick-Ancillary (obtain specimen); Complete Time: 16:39 kb Administered Medications: 19:17 Drug: TORadol 60 mg Route: IM; Site: right gluteus; mg2 19:25 Follow up: Response: No adverse reaction; Medication administered at discharge. mg2 19:24 Drug: Macrobid 100 mg Route: PO; mg2 19:25 Follow up: Response: No adverse reaction; Medication administered at discharge. mg2 19:24 Drug: Pyridium 200 mg Route: PO; mg2 19:24 Follow up: Response: No adverse reaction; Medication administered at discharge. mg2 Disposition: 05/18/18 19:15 Discharged to Home. Impression: Urinary tract infection, site not specified. - Condition is Stable. - Discharge Instructions: Urinary Tract Infection, Adult, [id number]. - Prescriptions for Pyridium 200 mg Oral Tablet - take 1 tablet by ORAL route every 8 hours for 3 days; 9 tablet. Macrobid 100 mg Oral Capsule - take 1 capsule by ORAL route every 12 hours for 7 days; 14 capsule. - Medication Reconciliation Form, Thank You Letter, Antibiotic Education, Prescription Opioid Use form. - Follow up: Emergency Department; When: As needed; Reason: Worsening of condition. Follow up: Private Physician; When: 2 - 3 days; Reason: Recheck today's complaints, Continuance of care, Re-evaluation by your physician. Addendum: 05/22/2018 07:13 Co-signature as Attending Physician, Richy Mathew MD. r n Signatures: Dispatcher [employer] EDMS Tayler Huffman, E MARKETING SPECIALIST-C E MARKETING SPECIALIST-Ckb Pricila Sanchez, RN RN Anay [place], E MARKETING SPECIALIST-C E MARKETING SPECIALIST-Csnw Richy Mathew MD MD rn Luís Rahman RN RN mg2 Corrections: (The following items were deleted from the chart) 05/18 19:27 19:15 05/18/2018 19:15 Discharged to Home. Impression: Urinary tract infection, site mg2 not specified. Condition is Stable. Forms are Medication Reconciliation Form, Thank You Letter, Antibiotic Education, Prescription Opioid Use. Follow up: Emergency Department; When: As needed; Reason: Worsening of condition. Follow up: Private Physician; When: 2 - 3 days; Reason: Recheck today's complaints, Continuance of care, Re-evaluation by your physician. kb
[2018-05-18] MEDS ORDERED: KETOROLAC 30 MG/ML INJ ONE (19:25)
[2018-05-18] MEDS ORDERED: NITROFURAN MACRO 100 MG CAP PO ONE (19:29)
[2018-05-18] MEDS ORDERED: PHENAZOPYRIDINE 100MG TAB PO ONE (19:29)
[2018-05-18 19:43] VITALS: TEMP 97.8
[2018-05-18 19:45] VITALS: BP 151/80; O2SAT 99
== END 2018-05-18 19:27 | disposition home or self-care (01) ==
LOC: ER 16:22
DX: N39.0 Urinary tract infection, site not specified (principal); F17.210 Nicotine dependence, cigarettes, uncomplicated; E03.9 Hypothyroidism, unspecified; F31.9 Bipolar disorder, unspecified; G40.909 Epilepsy, unspecified, not intractable, without status epilepticus; Z88.1 Allergy status to other antibiotic agents; Z88.8 Allergy status to other drugs, medicaments and biological substances
CPT/HCPCS: 74176; 76377; 81003; 81015; 81025; 87086; 87088

== ENCOUNTER 2018-05-27 14:43 | Emergency (ER) | payer OTHER ==
--- OUTSIDE RECORDS SUMMARY | 2018-05-27 14:46 | XMS REPORT | Clinical Summary ---
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 after 05/26/2017 Results Estimated GFR (08/22/2017 5:35 AM CDT)Only the most recent of8 resultswithin the time period is included. GFR Non Af Amer >90 mL/min/1.73 m2 [facility] DEPARTMENT OF PATHOLOGY AND GENOMIC MEDICINE GFR Af Amer >90 mL/min/1.73 m2 [facility] DEPARTMENT OF Comment: PATHOLOGY AND [...] specimen Performing Organization Address City/State/Zipcode Phone Number [facility] DEPARTMENT OF PATHOLOGY [address] [place] [address] AND GENOMIC MEDICINE CBC with platelet and differential (08/22/2017 5:35 AM CDT)Only the most recent of6 resultswithin the time period is included. WBC 7.1 4.5 - 11.0 k/uL [facility] DEPARTMENT OF PATHOLOGY AND GENOMIC MEDICINE RBC 3.78 (L) 4.20 - 5.50 m/uL [facility] DEPARTMENT OF PATHOLOGY AND GENOMIC MEDICINE HGB 11.9 (L) 12.0 - 16.0 g/dL [facility] DEPARTMENT OF PATHOLOGY AND GENOMIC MEDICINE HCT 35.9 (L) 37.0 - 47.0 % [facility] DEPARTMENT OF PATHOLOGY AND GENOMIC MEDICINE MCV 95.0 82.0 - 100.0 fL [facility] DEPARTMENT OF PATHOLOGY AND GENOMIC MEDICINE MCH 31.5 27.0 - 34.0 pg [facility] DEPARTMENT OF PATHOLOGY AND GENOMIC MEDICINE MCHC 33.1 31.0 - 37.0 g/dL [facility] DEPARTMENT OF PATHOLOGY AND GENOMIC MEDICINE RDW - SD 43.0 37.0 - 55.0 fL [facility] DEPARTMENT OF PATHOLOGY AND GENOMIC MEDICINE MPV 9.3 6.9 - 11.0 fL [facility] DEPARTMENT OF PATHOLOGY AND GENOMIC MEDICINE Platelet count 230 150 - 400 K/uL [facility] DEPARTMENT OF PATHOLOGY AND GENOMIC MEDICINE Nucleated RBC 0.00 /100 WBC [facility] DEPARTMENT OF PATHOLOGY AND GENOMIC MEDICINE Neutrophils 77.2 (H) 39.0 - 69.0 % [facility] DEPARTMENT OF PATHOLOGY AND GENOMIC MEDICINE Lymphocytes 18.6 (L) 25.0 - 45.0 % [facility] DEPARTMENT OF PATHOLOGY AND GENOMIC MEDICINE Monocytes 3.8 0.0 - 10.0 % [facility] DEPARTMENT OF PATHOLOGY AND GENOMIC MEDICINE Eosinophils 0.0 0.0 - 5.0 % [facility] DEPARTMENT OF PATHOLOGY AND GENOMIC MEDICINE Basophils 0.1 0.0 - 1.0 % [facility] DEPARTMENT OF PATHOLOGY AND GENOMIC MEDICINE Immature granulocytes 0.3 0.0 - 1.0 % [facility] DEPARTMENT OF PATHOLOGY AND GENOMIC MEDICINE Specimen Blood Performing Organization Address City/[facility]/Zipcode Phone Number [facility] DEPARTMENT OF PATHOLOGY [id number] [place] [address]. [place] [address] AND [employer] [facility] Magnesium level (08/22/2017 5:35 AM CDT)Only the most recent of3 resultswithin the time period is included. Magnesium 1.8 1.6 - 2.6 mg/dL [facility] DEPARTMENT OF PATHOLOGY AND GENOMIC MEDICINE Specimen Plasma specimen Performing Organization Address [facility] Centercode Phone Number [facility] DEPARTMENT OF PATHOLOGY [address] [place] [address]. [place] [address] AND [employer] [facility] Comprehensive metabolic panel (08/22/2017 5:35 AM CDT)Only the most recent of4 resultswithin the time period is included. Sodium 141 135 - 148 mEq/L [facility] DEPARTMENT OF PATHOLOGY AND GENOMIC MEDICINE Potassium 4.2 3.5 - 5.0 mEq/L [facility] DEPARTMENT OF PATHOLOGY AND GENOMIC MEDICINE Chloride 101 98 - 112 mEq/L [facility] DEPARTMENT OF PATHOLOGY AND GENOMIC MEDICINE CO2 26 24 - 31 mEq/L [facility] DEPARTMENT OF PATHOLOGY AND GENOMIC MEDICINE Anion gap 14 7 - 15 mEq/L [facility] DEPARTMENT OF Comment: PATHOLOGY AND GENOMIC Starting from July , anion gap calculation MEDICINE no longer incorporates potassium. Please note the change. BUN 8 6 - 20 mg/dL [facility] DEPARTMENT OF PATHOLOGY AND GENOMIC MEDICINE Creatinine 0.6 0.5 - 0.9 mg/dL [facility] DEPARTMENT OF PATHOLOGY AND GENOMIC MEDICINE Glucose 119 (H) 65 - 99 mg/dL [facility] DEPARTMENT OF PATHOLOGY AND GENOMIC MEDICINE Calcium 8.9 8.3 - 10.2 mg/dL [facility] DEPARTMENT OF PATHOLOGY AND GENOMIC MEDICINE Protein 6.2 (L) 6.3 - 8.3 g/dL [facility] DEPARTMENT OF PATHOLOGY AND GENOMIC MEDICINE Albumin 3.6 3.5 - 5.0 g/dL [facility] DEPARTMENT OF PATHOLOGY AND GENOMIC MEDICINE A/G ratio 1.4 0.7 - 3.8 [facility] DEPARTMENT OF PATHOLOGY AND GENOMIC MEDICINE Alkaline phosphatase 63 35 - 104 U/L [facility] DEPARTMENT OF PATHOLOGY AND GENOMIC MEDICINE AST 22 10 - 35 U/L [facility] DEPARTMENT OF PATHOLOGY AND GENOMIC MEDICINE ALT 44 5 - 50 U/L [facility] DEPARTMENT OF PATHOLOGY AND GENOMIC MEDICINE Total bilirubin <0.2 0.2 - 1.2 mg/dL [facility] DEPARTMENT OF PATHOLOGY AND GENOMIC MEDICINE Specimen Plasma specimen Performing Organization Address [facility] Centercode Phone Number [facility] DEPARTMENT OF PATHOLOGY [address] [place] [address] [facility] Sedimentation rate (08/21/2017 4:10 AM CDT)Only the most recent of2 resultswithin the time period is included. Sedimentation rate 21 (H) 0 - 20 mm/hr [facility] DEPARTMENT OF PATHOLOGY AND GENOMIC MEDICINE Specimen Blood Performing Organization Address [facility] Centercotn Phone Number [facility] DEPARTMENT OF PATHOLOGY [address] [place] [address] [facility] CRP high sensitivity (08/21/2017 4:10 AM CDT) CRP, high sensitivity 0.47 mg/L [facility] DEPARTMENT OF Comment: PATHOLOGY AND [facility] Please note this test is different from [...] infection Specimen Plasma specimen Performing Organization Address [facility] Centercotn Phone Number [facility] DEPARTMENT OF PATHOLOGY AND [address] [place] [id number] [place] [address] Basic metabolic panel (08/21/2017 4:10 AM CDT)Only the most recent of4 resultswithin the time period is included. Sodium 143 135 - 148 mEq/L [facility] DEPARTMENT OF PATHOLOGY AND GENOMIC MEDICINE Potassium 3.8 3.5 - 5.0 mEq/L [facility] DEPARTMENT OF PATHOLOGY AND GENOMIC MEDICINE Chloride 106 98 - 112 mEq/L [facility] DEPARTMENT OF PATHOLOGY AND GENOMIC MEDICINE CO2 26 24 - 31 mEq/L [facility] DEPARTMENT OF PATHOLOGY AND GENOMIC MEDICINE Anion gap 11 7 - 15 mEq/L [facility] DEPARTMENT OF Comment: PATHOLOGY AND GENOMIC Starting from July , anion gap calculation MEDICINE no longer incorporates potassium. Please note the change. BUN <4 (L) 6 - 20 mg/dL [facility] DEPARTMENT OF PATHOLOGY AND GENOMIC MEDICINE Creatinine 0.6 0.5 - 0.9 mg/dL [facility] DEPARTMENT OF PATHOLOGY AND GENOMIC MEDICINE Glucose 105 (H) 65 - 99 mg/dL [facility] DEPARTMENT OF PATHOLOGY AND GENOMIC MEDICINE Calcium 9.1 8.3 - 10.2 mg/dL [facility] DEPARTMENT OF PATHOLOGY AND GENOMIC MEDICINE Specimen Plasma specimen Performing Organization Address City/[facility]/Zipcode Phone Number [facility] DEPARTMENT OF PATHOLOGY [address] [place] [address] [facility] Occult blood, stool (08/17/2017 9:30 AM CDT) Occult blood, stool Negative for occult blood. [facility] DEPARTMENT OF Comment: PATHOLOGY AND GENOMIC Specimen Information MEDICINE Specimen Source: Stool Specimen Site: Nonpreserved Specimen Stool - Nonpreserved Performing Organization Address [facility] Centercode Phone Number [facility] DEPARTMENT OF PATHOLOGY [address] [place] [address] [facility] XR Abdomen 1 Vw (08/16/2017 12:25 PM CDT) Narrative Performed At EXAMINATION:XR ABDOMEN 1 VW [facility] CLINICAL HISTORY:Bowel obstruction COMPARISON:None. IMPRESSION: Loops of dilated small bowel compatible with an ileus versus partial small bowel obstruction A spinal stimulator pump projects over the right lower quadrant The gallbladder has been removed Bony structures are within normal limits [id number] Procedure Note Interface, Radiology Results Incoming - 08/16/2017 1:04 PM CDT EXAMINATION: XR ABDOMEN 1 VW CLINICAL HISTORY: Bowel obstruction COMPARISON: None. IMPRESSION: Loops of dilated small bowel compatible with an ileus versus partial small bowel obstruction A spinal stimulator pump projects over the right lower quadrant The gallbladder has been removed Bony structures are within normal limits [id number] Performing Organization Address City/[facility]/Zipcode Phone Number [facility] [address] [place] [address] Gastrointestinal panel (08/15/2017 3:40 AM CDT) Gastrointestinal panel Negative for all pathogens tested: [facility] DEPARTMENT OF Negative for Salmonella PATHOLOGY [...] Specimen Stool - Nonpreserved Performing Organization Address [facility] Phone Number [facility] DEPARTMENT OF PATHOLOGY AND [address] [place], [place] [phone] [employer] MEDICINE C difficile toxin (07/19/2017 7:50 PM CDT) Clostridium difficile No Clostridium difficle toxin present [facility] DEPARTMENT OF toxin Comment: PATHOLOGY AND GENOMIC Specimen Information MEDICINE Specimen Source: Stool Specimen Site: Nonpreserved Specimen Stool - Nonpreserved Performing Organization Address [facility] Phone Number [facility] DEPARTMENT OF PATHOLOGY AND [address] [place] [address] [employer] MEDICINE C-reactive protein (07/19/2017 10:08 AM CDT) CRP <0.30 0.00 - 0.50 mg/dL [facility] DEPARTMENT OF PATHOLOGY AND GENOMIC MEDICINE Specimen Plasma specimen Performing Organization Address [facility] Phone Number [facility] DEPARTMENT OF PATHOLOGY AND [address] [place] [address] GENOMIC MEDICINE after 05/26/2017 Insurance Payer Benefit Plan / Group Subscriber ID Type Phone Address MEDICARE MEDICARE PART A AND B xxxxxxxxxx Medicare [place], [place] MEDICAID MEDICAID xxxxxxxxx Medicaid
--- OUTSIDE RECORDS SUMMARY | 2018-05-27 14:46 | XMS REPORT ---
:1970 [facility] Address [address] [place] [address] [address] [place] [address] Care Team Providers Name Role Phone DR [...] Department ID 2016-11-04 Inpatient [facility] [id number] 09:30:00 EDGARD 2016-07-15 2016-07-19 Inpatient 1 HARSHIL ALLEN [facility] [id number] 18:47:00 10:30:00 BLAKE 2013-11-19 2013-11-19 Emergency E MOOK [facility] [id number] 10:08:00 12:55:00 [facility] Results Test Description Test Time Test Comments Text Results Atomic Results Result Comments CT ABDOMEN/PELVIS WITH 2016-07-26 14:26:[address] [id number] IMAGING REPORTPatient Name: Anne DEL TOROte of Service: [id number]: [id number] Sex: F Order #: [id number] Room: ERSDOB: 1970 X-Ray Number: [id number] Record Number: [id number] Hospital Number: [id number] Physician: KISHAN MUNOZ -Ordering Physician: HERNANDEZ MONTEMAYOR [...] Syed 2016-07-26 14:23:48 CT ABDOMEN/PELVIS 2016-07-17 02:49:00 [address] REPORTPatient Name: Manuel DEL TORO of Service: [id number]: 45 Sex: F Order #: [id number] Room: [facility] 2NEDOB: 1970 X-Ray Number: [id number] Record Number: [id number] Hospital Number: [id number] Physician: BLAKE ALLEN -Ordering Physician: AURORA LOWERY [...] 2016-07-17 02:47:19 ABDOMEN 2 VIEWS 2016-07-15 12:14:[address] [id number] IMAGING REPORTPatient Name: Manuel DEL TORO of Service: [id number]: 45 Sex: F Order #: [id number] [facility] 1970 [facility] Number: [id number] Record Number: [id number] Hospital Number: [id number] Physician: Austin TEJEDA Physician: Elvis GARCIA 2 [...]
[2018-05-27] MEDS ORDERED: METHYLPREDNISOLONE 125 MG INJ ONE (15:43)
[2018-05-27] MEDS ORDERED: MORPHINE 4 MG/ML SYR ONE (15:44)
[2018-05-27] MEDS ORDERED: NA CHLORIDE 0.9% 1,000 ML ONE (15:44)
[2018-05-27] MEDS ORDERED: ONDANSETRON 4 MG/2 ML VIAL ONE (15:44)
[2018-05-27 16:12] LABS: Absolute Lymphocytes (CBC) 2.3 K/uL (0.7-4.9); Absolute Monocytes 0.5 K/uL (0.1-1.3); Absolute Neutrophil 5.1 K/uL (1.8-8.0); Basophils % 0.6 % (0-1.3); Eosinophils % 2.1 % (0-4.4); Hematocrit 40.1 % (36.0-45.0); Lymphocytes % 27.9 % (15.3-44.8); RBC Red Blood Cell Count 4.23 M/uL (3.86-4.86)
[2018-05-27 16:30] LABS: ALT/SGPT 20 U/L (12-78); AST/SGOT 11 U/L (15-37); Albumin 3.6 g/dL (3.4-5.0); Alkaline Phosphatase 88 U/L (45-117); BUN Blood Urea Nitrogen 12 mg/dL (7-18); Bicarbonate 27 mmol/L (21-32); Bilirubin Direct < 0.1 mg/dL (0-0.2); Bilirubin Total 0.2 mg/dL (0.2-1.0); Glucose Level 103 mg/dL (74-106); Lipase 253 U/L (73-393); Potassium 3.2 mmol/L (3.5-5.1); Sodium Level 141 mmol/L (136-145)
--- NOTE | 2018-05-27 17:00 | ER ---
Nurse's Notes [facility] Name: Angela Rodriguez Age: 47 yrs Sex: Female : 1970 Arrival Date: 05/27/2018 Time: 14:49 Bed 14 Private MD: Diagnosis: Crohn's disease [regional enteritis];Dysuria Presentation: 05/27 14:54 Presenting complaint: Patient states: I had a UTI and just finished macrobid yesterday la1 but the pain is back and also now I feel like I am starting a crohns flare with abd pain and diarrhea. Transition of care: patient was not received from another setting of care. Onset of symptoms was May 27, 2018. Risk Assessment: Do you want to hurt yourself or someone else? Patient reports no desire to harm self or others. Initial Sepsis Screen: Does the patient meet any 2 criteria? No. Patient's initial sepsis screen is negative. Does the patient have a suspected source of infection? No. Patient's initial sepsis screen is negative. Care prior to arrival: None. 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 - Social history:: Smoking status: Patient uses tobacco products, smokes one pack cigarettes per day. - Ebola Screening: : No symptoms or risks identified at this time. Screenin:00 Abuse screen: Denies threats or abuse. Nutritional screening: No deficits noted. rb1 Tuberculosis screening: No symptoms or risk factors identified. Fall Risk None identified. Assessment: 15:00 General: Appears in no apparent distress. comfortable, Behavior is calm, cooperative. rb1 Pain: Complains of pain in left upper quadrant Pain currently is 10 out of 10 on a pain scale. Pain began this morning. Neuro: Level of Consciousness is awake, alert, obeys commands, Oriented to person, place, time, situation. Cardiovascular: Capillary refill < 3 seconds is brisk in bilateral fingers. Respiratory: Airway is patent Respiratory effort is even, unlabored, Respiratory pattern is regular, symmetrical. GI: Bowel sounds present X 4 quads. Abd is soft Abdomen is tender to palpation in left upper quadrant Reports diarrhea, Patient currently denies bloody stool. : Reports pain with urination. Derm: Skin is pink, warm \T\ dry. 16:00 Reassessment: Patient appears in no apparent distress at this time. No changes from rb1 previously documented assessment. 17:05 Reassessment: Patient appears in no apparent distress at this time. Patient and/or rb1 family updated on plan of care and expected duration. Pain level reassessed. Patient is alert, oriented x 3, equal unlabored respirations, skin warm/dry/pink. Pain 5/10. Vital Signs: 14:55 BP 133 / 92; Pulse 72; Resp 18; Temp 98.7; Pulse Ox 98% on R/A; Weight 61.23 kg; Height la1 5 ft. 2 in. (157.48 cm); 16:22 BP 156 / 87; Pulse 55; Resp 17; Pulse Ox 95% on R/A; rb1 17:17 BP 169 / 90; Pulse 66; Resp 18; Pulse Ox 96% on R/A; Pain 5/10; rb1 14:55 Body Mass Index 24.69 (61.23 kg, 157.48 cm) la1 ED Course: 14:49 Patient arrived in ED. mr 14:55 Triage completed. la1 14:55 Arm band placed on left wrist. la1 15:00 Kalie Zaidi, RN is Primary Nurse. rb1 15:00 Patient has correct armband on for positive identification. Bed in low position. Call rb1 light in reach. Side rails up X 1. Pulse ox on. NIBP on. 15:04 Tayler Huffman FNP-C is PHCP. kb 15:04 Richy Mathew MD is Attending Physician. kb 15:55 Missed attempt(s): 22 gauge in left forearm. rb1 16:02 Inserted saline lock: 22 gauge in left forearm, using aseptic technique. Blood hb collected. 16:46 Urine collected: clean catch specimen, sandrine colored. dh3 17:19 No provider procedures requiring assistance completed. IV discontinued, intact, rb1 bleeding controlled, No redness/swelling at site. Pressure dressing applied. Administered Medications: 16:05 Drug: NS 0.9% 1000 ml Route: IV; Rate: 1000 ml; Site: left forearm; rb1 17:04 Follow up: IV Status: Completed infusion rb1 16:05 Drug: Zofran 4 mg Route: IVP; Site: left forearm; rb1 16:30 Follow up: Response: No adverse reaction; Nausea is decreased rb1 16:05 Drug: morphine 4 mg Route: IVP; Site: left forearm; rb1 16:30 Follow up: Response: No adverse reaction; Pain is decreased; Pain 5/10 rb1 16:05 Drug: SOLU-Medrol 125 mg Route: IVP; Site: left forearm; rb1 16:30 Follow up: Response: No adverse reaction rb1 17:04 Drug: Valium 2 mg Route: PO; rb1 17:18 Follow up: Response: No adverse reaction rb1 17:04 Drug: Potassium Chloride 20 mEq Route: PO; rb1 17:18 Follow up: Response: No adverse reaction rb1 Intake: Outcome: 17:00 Discharge ordered by . kb 17:19 Discharged to home ambulatory, with significant other. rb1 17:19 Condition: stable 17:19 Discharge instructions given to patient, Instructed on discharge instructions, follow up and referral plans. medication usage, Demonstrated understanding of instructions, follow-up care, medications, Prescriptions given X 2. 17:20 Patient left the ED. rb1 Signatures: Tayler Huffman FNP-C FNP-Sarahi Roopa Medeiros Jaxon Selby, RN RN la1 Kalie Zaidi, RN RN rb1 Daxa Morales, ANANYA RN Tahira Hay 3 Corrections: (The following items were deleted from the chart) 16:03 16:02 Inserted saline lock: 22 gauge in left forearm, using aseptic technique. hb hb
--- NOTE | 2018-05-27 17:01 | EDPHYS ---
Physician Documentation [facility] Name: Angela Rodriguez Age: 47 yrs Sex: Female : 1970 Arrival Date: 05/27/2018 Time: 14:49 Bed 14 Private MD: ED Physician Richy Mathew HPI: 05/27 15:48 This 47 yrs old Female presents to ER via Ambulatory with complaints of kb Urinary Problem, Abdominal Pain. 15:48 The patient presents with abdominal pain in the left upper quadrant. Onset: The kb symptoms/episode began/occurred today. The symptoms do not radiate. Associated signs and symptoms: Pertinent positives: diarrhea, dysuria, fever. The symptoms are described as burning, crampy. Modifying factors: The symptoms are alleviated by nothing, the symptoms are aggravated by nothing. Severity of pain: At its worst the pain was moderate in the emergency department the pain is unchanged. The patient has experienced similar episodes in the past, a few times. The patient has been recently seen at the [facility] Emergency Department, a couple of weeks ago. 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 - Social history:: Smoking status: Patient uses tobacco products, smokes one pack cigarettes per day. - Ebola Screening: : No symptoms or risks identified at this time. ROS: 15:37 Cardiovascular: Negative for chest pain, palpitations, and edema, Respiratory: Negative kb for shortness of breath, cough, wheezing, and pleuritic chest pain, Back: Negative for injury and pain, MS/Extremity: Negative for injury and deformity, Skin: Negative for injury, rash, and discoloration, Neuro: Negative for headache, weakness, numbness, tingling, and seizure. 15:37 Constitutional: Positive for fever, Negative for body aches, chills, fatigue, malaise, poor PO intake, weight loss. 15:37 Abdomen/GI: Positive for abdominal pain, diarrhea, Negative for nausea and vomiting, constipation, abdominal cramps, abdominal distension, anorexia. 15:37 : Positive for burning with urination, Negative for urinary frequency, small amounts, flank pain, foul smelling urine, vaginal bleeding, vaginal discharge, vaginal itching. Exam: 15:48 Constitutional: This is a well developed, well nourished patient who is awake, alert, kb and in no acute distress. Head/Face: Normocephalic, atraumatic. Chest/axilla: Normal chest wall appearance and motion. Nontender with no deformity. No lesions are appreciated. Cardiovascular: Regular rate and rhythm with a normal S1 and S2. No gallops, murmurs, or rubs. Normal PMI, no JVD. No pulse deficits. Respiratory: Lungs have equal breath sounds bilaterally, clear to auscultation and percussion. No rales, rhonchi or wheezes noted. No increased work of breathing, no retractions or nasal flaring. Back: No spinal tenderness. No costovertebral tenderness. Full range of motion. Skin: Warm, dry with normal turgor. Normal color with no rashes, no lesions, and no evidence of cellulitis. MS/ Extremity: Pulses equal, no cyanosis. Neurovascular intact. Full, normal range of motion. Neuro: Awake and alert, GCS 15, oriented to person, place, time, and situation. Cranial nerves II-XII grossly intact. Motor strength 5/5 in all extremities. Sensory grossly intact. Cerebellar exam normal. Normal gait. 15:48 Abdomen/GI: Inspection: abdomen appears normal, Bowel sounds: normal, in all quadrants, Palpation: soft, in all quadrants, mild abdominal tenderness, in the left upper quadrant. Vital Signs: 14:55 BP 133 / 92; Pulse 72; Resp 18; Temp 98.7; Pulse Ox 98% on R/A; Weight 61.23 kg; Height la1 5 ft. 2 in. (157.48 cm); 16:22 BP 156 / 87; Pulse 55; Resp 17; Pulse Ox 95% on R/A; rb1 17:17 BP 169 / 90; Pulse 66; Resp 18; Pulse Ox 96% on R/A; Pain 5/10; rb1 14:55 Body Mass Index 24.69 (61.23 kg, 157.48 cm) la1 MDM: 15:04 Patient medically screened. kb 15:34 Data reviewed: vital signs, nurses notes. Data interpreted: Pulse oximetry: on room air kb is 98 %. Interpretation: normal. 16:59 Counseling: I had a detailed discussion with the patient and/or guardian regarding: the kb historical points, exam findings, and any diagnostic results supporting the discharge/admit diagnosis, lab results, the need for outpatient follow up, a family practitioner, a singer and unloader, a urologist, to return to the emergency department if symptoms worsen or persist or if there are any questions or concerns that arise at home. 05/27 15:13 Order name: Basic Metabolic Panel; Complete Time: 16:36 kb 05/27 15:13 Order name: CBC with Diff; Complete Time: 16:15 kb 05/27 15:13 Order name: Hepatic Function; Complete Time: 16:36 kb 05/27 15:13 Order name: Lipase; Complete Time: 16:36 kb 05/27 16:48 Order name: Urine Dipstick--Ancillary (enter results) ms 05/27 15:13 Order name: IV Saline Lock; Complete Time: 16:08 kb 05/27 15:13 Order name: Labs collected and sent; Complete Time: 16:08 kb 05/27 15:13 Order name: Urine Dipstick-Ancillary (obtain specimen); Complete Time: 16:46 kb Administered Medications: 16:05 Drug: NS 0.9% 1000 ml Route: IV; Rate: 1000 ml; Site: left forearm; rb1 17:04 Follow up: IV Status: Completed infusion rb1 16:05 Drug: Zofran 4 mg Route: IVP; Site: left forearm; rb1 16:30 Follow up: Response: No adverse reaction; Nausea is decreased rb1 16:05 Drug: morphine 4 mg Route: IVP; Site: left forearm; rb1 16:30 Follow up: Response: No adverse reaction; Pain is decreased; Pain 5/10 rb1 16:05 Drug: SOLU-Medrol 125 mg Route: IVP; Site: left forearm; rb1 16:30 Follow up: Response: No adverse reaction rb1 17:04 Drug: Valium 2 mg Route: PO; rb1 17:18 Follow up: Response: No adverse reaction rb1 17:04 Drug: Potassium Chloride 20 mEq Route: PO; rb1 17:18 Follow up: Response: No adverse reaction rb1 Disposition: 17:45 Co-signature as Attending Physician, Richy Mathew MD. rn Disposition: 05/27/18 17:00 Discharged to Home. Impression: Crohn's disease [regional enteritis], Dysuria. - Condition is Stable. - Discharge Instructions: Crohn Disease, Dysuria. - Prescriptions for Flagyl 500 mg Oral Tablet - take 1 tablet by ORAL route 3 times per day for 7 days; 21 tablet. Tramadol 50 mg Oral Tablet - take 1 tablet by ORAL route every 8 hours as needed; 12 tablet. - Medication Reconciliation Form, Thank You Letter, Antibiotic Education, Prescription Opioid Use form. - Follow up: Emergency Department; When: As needed; Reason: Worsening of condition. Follow up: Private Physician; When: 2 - 3 days; Reason: Recheck today's complaints, Continuance of care, Re-evaluation by your physician. Signatures: Dispatcher [employer] EDIA Tayler Huffman, [facility]-Ckb Richy Mathew MD MD rn Attema, Lee RN RN la1 Kalie Zaidi, RN RN rb1 Corrections: (The following items were deleted from the chart) 17:20 17:00 05/27/2018 17:00 Discharged to Home. Impression: Crohn's disease [regional rb1 enteritis]; Dysuria. Condition is Stable. Forms are Medication Reconciliation Form, Thank You Letter, Antibiotic Education, Prescription Opioid Use. Follow up: Emergency Department; When: As needed; Reason: Worsening of condition. Follow up: Private Physician; When: 2 - 3 days; Reason: Recheck today's complaints, Continuance of care, Re-evaluation by your physician. kb
[2018-05-27] MEDS ORDERED: POTASSIUM CL SA 10 MEQ TAB PO ONE (17:12)
[2018-05-27] MEDS ORDERED: DIAZEPAM 2 MG TABLET ONE (17:12)
[2018-05-27 17:27] VITALS: TEMP 98.7
[2018-05-27 17:29] VITALS: BP 169/90; O2SAT 96
[2018-05-27 17:43] LABS: Urine Blood NEGATIVE (NEG); Urine Glucose NEGATIVE (NEG); Urine Protein 1+ (NEG); Urine Specific Gravity 1.025 (1.005-1.030)
== END 2018-05-27 17:20 | disposition home or self-care (01) ==
LOC: ER 14:43
DX: K50.90 Crohn's disease, unspecified, without complications (principal); R30.0 Dysuria; G40.909 Epilepsy, unspecified, not intractable, without status epilepticus; F31.9 Bipolar disorder, unspecified; E03.9 Hypothyroidism, unspecified; F17.210 Nicotine dependence, cigarettes, uncomplicated; Z88.1 Allergy status to other antibiotic agents; Z88.8 Allergy status to other drugs, medicaments and biological substances
CPT/HCPCS: 36415; 80048; 80076; 81003; 83690; 85025; 96361; 96374; 96375; 99284; J2405; J2930; J7030

== ENCOUNTER 2018-06-13 15:10 | Emergency (ER) | payer OTHER ==
--- OUTSIDE RECORDS SUMMARY | 2018-06-13 15:13 | XMS REPORT ---
:1970 [facility] Address [address] [place] [address] [address] [place] [address] Care Team Providers Name Role Phone DR [...] Department ID 2016-11-04 Inpatient C NARESH [facility] [id number] 09:30:00 EDGARD 2016-07-15 2016-07-19 Inpatient 1 HARSHIL ALLEN [facility] [id number] 18:47:00 10:30:00 BLAKE 2013-11-19 2013-11-19 Emergency E MOOK [facility] [id number] 10:08:00 12:55:00 RADHA Results Test Description Test Time Test Comments Text Results Atomic Results Result Comments CT ABDOMEN/PELVIS WITH 2016-07-26 14:26:[address] [id number] IMAGING REPORTPatient Name: Anne DEL TOROte of Service: [id number]: 45 Sex: F Order #: [id number] Room: ERSDOB: 1970 X-Ray Number: [id number] Record Number: [id number] Hospital Number: [id number] Physician: KISHAN MUNOZ -Ordering Physician: HERNANDEZ MONTEMAYOR [...] Syed 2016-07-26 14:23:48 CT ABDOMEN/PELVIS 2016-07-17 02:49:00 [address] IMAG[address] REPORTPatient Name: Manuel DEL TORO of Service: [id number]: 45 Sex: F Order #: [id number] Room: [facility] 2NEDOB: 1970 X-Ray Number: [id number] Record Number: [id number] Hospital Number: [id number] Physician: BLAKE ALLEN -Ordering Physician: AURORA LOWERY [...] 2016-07-17 02:47:19 ABDOMEN 2 VIEWS 2016-07-15 12:14:[address] [id number] IMAGING REPORTPatient Name: Manuel DEL TORO of Service: [id number]: 45 Sex: F Order #: [id number] [facility] 1970 [facility] Number: [id number] Record Number: [id number] Hospital Number: [id number] Physician: Austin TEJEDA Physician: Elvis GARCIA 2 [...]
--- OUTSIDE RECORDS SUMMARY | 2018-06-13 15:13 | XMS REPORT | Clinical Summary ---
:1970 Author Organization [facility] Address [address] [place] [address] Care Team Providers Name Role Phone Eryn [...] Raz Mchugh MD infectious (Primary Dx) after 06/12/2017 Social History Tobacco Use Types Packs/Day Years [...] INFLUENZA VACCINE 11/29/2017 Implants Implanted Type Area Child And Youth Program Assistant Device Identifier Shelf Expiration Model / [...] procedure are in the results section. after 06/12/2017 Results Estimated GFR (08/22/2017 5:35 AM CDT)Only the most recent of8 resultswithin the time period is included. GFR Non Af Amer >90 mL/min/1.73 m2 [facility] DEPARTMENT OF PATHOLOGY AND GENOMIC MEDICINE GFR Af Amer >90 mL/min/1.73 m2 [facility] DEPARTMENT OF Comment: PATHOLOGY AND [...] specimen Performing Organization Address City/State/Zipcode Phone Number [facility] DEPARTMENT OF PATHOLOGY [address] [place] [address] AND GENOMIC MEDICINE CBC with platelet and differential (08/22/2017 5:35 AM CDT)Only the most recent of6 resultswithin the time period is included. WBC 7.1 4.5 - 11.0 k/uL [facility] DEPARTMENT OF PATHOLOGY AND GENOMIC MEDICINE RBC 3.78 (L) 4.20 - 5.50 m/uL [facility] DEPARTMENT OF PATHOLOGY AND GENOMIC MEDICINE HGB 11.9 (L) 12.0 - 16.0 g/dL [facility] DEPARTMENT OF PATHOLOGY AND GENOMIC MEDICINE HCT 35.9 (L) 37.0 - 47.0 % [facility] DEPARTMENT OF PATHOLOGY AND GENOMIC MEDICINE MCV 95.0 82.0 - 100.0 fL [facility] DEPARTMENT OF PATHOLOGY AND GENOMIC MEDICINE MCH 31.5 27.0 - 34.0 pg [facility] DEPARTMENT OF PATHOLOGY AND GENOMIC MEDICINE MCHC 33.1 31.0 - 37.0 g/dL [facility] DEPARTMENT OF PATHOLOGY AND GENOMIC MEDICINE RDW - SD 43.0 37.0 - 55.0 fL [facility] DEPARTMENT OF PATHOLOGY AND GENOMIC MEDICINE MPV 9.3 6.9 - 11.0 fL [facility] DEPARTMENT OF PATHOLOGY AND GENOMIC MEDICINE Platelet count 230 150 - 400 K/uL [facility] DEPARTMENT OF PATHOLOGY AND GENOMIC MEDICINE Nucleated RBC 0.00 /100 WBC [facility] DEPARTMENT OF PATHOLOGY AND GENOMIC MEDICINE Neutrophils 77.2 (H) 39.0 - 69.0 % [facility] DEPARTMENT OF PATHOLOGY AND GENOMIC MEDICINE Lymphocytes 18.6 (L) 25.0 - 45.0 % [facility] DEPARTMENT OF PATHOLOGY AND GENOMIC MEDICINE Monocytes 3.8 0.0 - 10.0 % [facility] DEPARTMENT OF PATHOLOGY AND GENOMIC MEDICINE Eosinophils 0.0 0.0 - 5.0 % [facility] DEPARTMENT OF PATHOLOGY AND GENOMIC MEDICINE Basophils 0.1 0.0 - 1.0 % [facility] DEPARTMENT OF PATHOLOGY AND GENOMIC MEDICINE Immature granulocytes 0.3 0.0 - 1.0 % [facility] DEPARTMENT OF PATHOLOGY AND GENOMIC MEDICINE Specimen Blood Performing Organization Address City/[facility]/Zipcode Phone Number [facility] DEPARTMENT OF PATHOLOGY [address] [place] [address]. [place] [address] AND [employer] Magnesium level (08/22/2017 5:35 AM CDT)Only the most recent of3 resultswithin the time period is included. Magnesium 1.8 1.6 - 2.6 mg/dL [facility] DEPARTMENT OF PATHOLOGY AND GENOMIC MEDICINE Specimen Plasma specimen Performing Organization Address [facility]ode Phone Number [facility] DEPARTMENT OF PATHOLOGY [address] [place] [address]. [place] [address] AND [employer] [facility] Comprehensive metabolic panel (08/22/2017 5:35 AM CDT)Only the most recent of4 resultswithin the time period is included. Sodium 141 135 - 148 mEq/L [facility] DEPARTMENT OF PATHOLOGY AND GENOMIC MEDICINE Potassium 4.2 3.5 - 5.0 mEq/L [facility] DEPARTMENT OF PATHOLOGY AND GENOMIC MEDICINE Chloride 101 98 - 112 mEq/L [facility] DEPARTMENT OF PATHOLOGY AND GENOMIC MEDICINE CO2 26 24 - 31 mEq/L [facility] DEPARTMENT OF PATHOLOGY AND GENOMIC MEDICINE Anion gap 14 7 - 15 mEq/L [facility] DEPARTMENT OF Comment: PATHOLOGY AND GENOMIC Starting from July , anion gap calculation MEDICINE no longer incorporates potassium. Please note the change. BUN 8 6 - 20 mg/dL [facility] DEPARTMENT OF PATHOLOGY AND GENOMIC MEDICINE Creatinine 0.6 0.5 - 0.9 mg/dL [facility] DEPARTMENT OF PATHOLOGY AND GENOMIC MEDICINE Glucose 119 (H) 65 - 99 mg/dL [facility] DEPARTMENT OF PATHOLOGY AND GENOMIC MEDICINE Calcium 8.9 8.3 - 10.2 mg/dL [facility] DEPARTMENT OF PATHOLOGY AND GENOMIC MEDICINE Protein 6.2 (L) 6.3 - 8.3 g/dL [facility] DEPARTMENT OF PATHOLOGY AND GENOMIC MEDICINE Albumin 3.6 3.5 - 5.0 g/dL [facility] DEPARTMENT OF PATHOLOGY AND GENOMIC MEDICINE A/G ratio 1.4 0.7 - 3.8 [facility] DEPARTMENT OF PATHOLOGY AND GENOMIC MEDICINE Alkaline phosphatase 63 35 - 104 U/L [facility] DEPARTMENT OF PATHOLOGY AND GENOMIC MEDICINE AST 22 10 - 35 U/L [facility] DEPARTMENT OF PATHOLOGY AND GENOMIC MEDICINE ALT 44 5 - 50 U/L [facility] DEPARTMENT OF PATHOLOGY AND GENOMIC MEDICINE Total bilirubin <0.2 0.2 - 1.2 mg/dL [facility] DEPARTMENT OF PATHOLOGY AND GENOMIC MEDICINE Specimen Plasma specimen Performing Organization Address [facility]ercode Phone Number [facility] DEPARTMENT OF PATHOLOGY [address] [place] [address] AND [facility] Sedimentation rate (08/21/2017 4:10 AM CDT)Only the most recent of2 resultswithin the time period is included. Sedimentation rate 21 (H) 0 - 20 mm/hr [facility] DEPARTMENT OF PATHOLOGY AND GENOMIC MEDICINE Specimen Blood Performing Organization Address [facility] Phone Number [facility] DEPARTMENT OF PATHOLOGY [address] [place] [address] AND [facility] CRP high sensitivity (08/21/2017 4:10 AM CDT) CRP, high sensitivity 0.47 mg/L [facility] DEPARTMENT OF Comment: PATHOLOGY AND [facility] Please note this test is different from [...] infection Specimen Plasma specimen Performing Organization Address [facility] Phone Number [facility] DEPARTMENT OF PATHOLOGY AND [address] [place] [phone] [place] [address] Basic metabolic panel (08/21/2017 4:10 AM CDT)Only the most recent of4 resultswithin the time period is included. Sodium 143 135 - 148 mEq/L [facility] DEPARTMENT OF PATHOLOGY AND GENOMIC MEDICINE Potassium 3.8 3.5 - 5.0 mEq/L [facility] DEPARTMENT OF PATHOLOGY AND GENOMIC MEDICINE Chloride 106 98 - 112 mEq/L [facility] DEPARTMENT OF PATHOLOGY AND GENOMIC MEDICINE CO2 26 24 - 31 mEq/L [facility] DEPARTMENT OF PATHOLOGY AND GENOMIC MEDICINE Anion gap 11 7 - 15 mEq/L [facility] DEPARTMENT OF Comment: PATHOLOGY AND GENOMIC Starting from July , anion gap calculation MEDICINE no longer incorporates potassium. Please note the change. BUN <4 (L) 6 - 20 mg/dL [facility] DEPARTMENT OF PATHOLOGY AND GENOMIC MEDICINE Creatinine 0.6 0.5 - 0.9 mg/dL [facility] DEPARTMENT OF PATHOLOGY AND GENOMIC MEDICINE Glucose 105 (H) 65 - 99 mg/dL [facility] DEPARTMENT OF PATHOLOGY AND GENOMIC MEDICINE Calcium 9.1 8.3 - 10.2 mg/dL [facility] DEPARTMENT OF PATHOLOGY AND GENOMIC MEDICINE Specimen Plasma specimen Performing Organization Address City/[facility]/Zipcode Phone Number [facility] DEPARTMENT OF PATHOLOGY [address] [place] [address] AND [facility] Occult blood, stool (08/17/2017 9:30 AM CDT) Occult blood, stool Negative for occult blood. [facility] DEPARTMENT OF Comment: PATHOLOGY AND GENOMIC Specimen Information MEDICINE Specimen Source: Stool Specimen Site: Nonpreserved Specimen Stool - Nonpreserved Performing Organization Address [facility] Centercode Phone Number [facility] DEPARTMENT OF PATHOLOGY [address] [place] [address] AND [facility] XR Abdomen 1 Vw (08/16/2017 12:25 PM CDT) Narrative Performed At EXAMINATION:XR ABDOMEN 1 VW [facility] CLINICAL HISTORY:Bowel obstruction COMPARISON:None. IMPRESSION: Loops of dilated small bowel compatible with an ileus versus partial small bowel obstruction A spinal stimulator pump projects over the right lower quadrant The gallbladder has been removed Bony structures are within normal limits [id number] Procedure Note Interface, Radiology Results Incoming - 08/16/2017 1:04 PM CDT EXAMINATION: XR ABDOMEN 1 VW CLINICAL HISTORY: Bowel obstruction COMPARISON: None. IMPRESSION: Loops of dilated small bowel compatible with an ileus versus partial small bowel obstruction A spinal stimulator pump projects over the right lower quadrant The gallbladder has been removed Bony structures are within normal limits [id number] Performing Organization Address City/[facility]/Zipcode Phone Number [facility] [address] [place] [address] Gastrointestinal panel (08/15/2017 3:40 AM CDT) Gastrointestinal panel Negative for all pathogens tested: [facility] DEPARTMENT OF Negative for Salmonella PATHOLOGY [...] Specimen Stool - Nonpreserved Performing Organization Address [facility] Phone Number [facility] DEPARTMENT OF PATHOLOGY AND [address] [place], [place] [id number] [facility] MEDICINE C difficile toxin (07/19/2017 7:50 PM CDT) Clostridium difficile No Clostridium difficle toxin present [facility] DEPARTMENT OF toxin Comment: PATHOLOGY AND GENOMIC Specimen Information MEDICINE Specimen Source: Stool Specimen Site: Nonpreserved Specimen Stool - Nonpreserved Performing Organization Address [facility] Phone Number [facility] DEPARTMENT OF PATHOLOGY AND [address] [place] [phone] [facility] MEDICINE C-reactive protein (07/19/2017 10:08 AM CDT) CRP <0.30 0.00 - 0.50 mg/dL [facility] DEPARTMENT OF PATHOLOGY AND GENOMIC MEDICINE Specimen Plasma specimen Performing Organization Address [facility] Phone Number [facility] DEPARTMENT OF PATHOLOGY AND [address] [place] [phone] GENOMIC MEDICINE after 06/12/2017 Insurance Payer Benefit Plan / Group Subscriber ID Type Phone Address MEDICARE MEDICARE PART A AND B xxxxxxxxxx Medicare [place], [place] MEDICAID MEDICAID xxxxxxxxx Medicaid
[2018-06-13] MEDS ORDERED: NA CHLORIDE 0.9% 1,000 ML ONE (16:50)
[2018-06-13] MEDS ORDERED: LORazepam 2 MG/ML VIAL ONE (16:56)
[2018-06-13 16:57] LABS: Absolute Lymphocytes (CBC) 1.2 K/uL (0.7-4.9); Absolute Monocytes 0.5 K/uL (0.1-1.3); Absolute Neutrophil 11.8 K/uL (1.8-8.0); Basophils % 0.3 % (0-1.3); Eosinophils % 0.3 % (0-4.4); Hematocrit 39.6 % (36.0-45.0); Lymphocytes % 8.9 % (15.3-44.8); MPV 6.8 fL (7.6-11.3); Monocytes % 3.5 % (3.3-12.3); RBC Red Blood Cell Count 4.22 M/uL (3.86-4.86)
[2018-06-13] MEDS ORDERED: FENTANYL CITR 100 MCG/2 ML ONE ×2 (16:57→19:11)
[2018-06-13] MEDS ORDERED: ONDANSETRON 4 MG/2 ML VIAL ONE (17:15)
[2018-06-13 17:18] LABS: Platelet Estimate ADEQ; Urine White Blood Cell Casts OK
[2018-06-13 17:19] LABS: ALT/SGPT 15 U/L (12-78); AST/SGOT 14 U/L (15-37); Albumin 3.8 g/dL (3.4-5.0); Alkaline Phosphatase 83 U/L (45-117); BUN Blood Urea Nitrogen 8 mg/dL (7-18); Bicarbonate 26 mmol/L (21-32); Bilirubin Direct 0.2 mg/dL (0-0.2); Bilirubin Total 0.5 mg/dL (0.2-1.0); Blood Morphology Comment NOT SEEN (NOT SEEN); Glucose Level 105 mg/dL (74-106); Lipase 96 U/L (73-393); Potassium 3.2 mmol/L (3.5-5.1); Protein, Total 6.9 g/dL (6.4-8.2); Sodium Level 142 mmol/L (136-145)
[2018-06-13 18:05] LABS: Urine Bacteria <20 /HPF (<20); Urine Culture Reflex Order NOT NEEDED; Urine RBC <5 /HPF (NONE SEEN)
--- NOTE | 2018-06-13 19:01 | RAD REPORT ---
EXAM DESCRIPTION: CTAbdomen Pelvis W Contrast - 06/13/2018 6:52 pm CLINICAL HISTORY: Abdominal pain. ABD PAIN COMPARISON: Abdomen Pelvis W Contrast dated 04/02/2018; Abdomen Pelvis W Contrast dated 7; Stone Protocol dated 05/18/2018 TECHNIQUE: Biphasic CT imaging of the abdomen and pelvis was performed with 100 ml non-ionic IV cont rast. All CT scans are performed using dose optimization technique as appropriate and may include automated exposure control or mA/KV adjustment according to patient size. FINDINGS: The lung bases are clear.Cholecystectomy. The liver, spleen, pancreas, adrenal glands are within normal limits. Cysts are present in both kidne ys, the largest on the left measuring 3.5 cm and containing a small wall calcification. No bowel obstruction, free air, free fluid or abscess. Inflammatory wall thickening involves the rect osigmoid colon. Appendectomy suspected. Urinary bladder is decompressed with a Castillo catheter. No nidia dence of significant lymphadenopathy. No suspicious bony findings. Stimulator device is noted. IMPRESSION: Mild rectosigmoid colitis is suspected.
[2018-06-13 19:23] LABS: Urine Blood NEGATIVE (NEG); Urine Glucose NEGATIVE (NEG); Urine Protein NEGATIVE (NEG)
[2018-06-13] MEDS ORDERED: DOXYCYCLINE 100 MG CAP PO ONE (19:32)
[2018-06-13] MEDS ORDERED: METRONIDAZOLE 500mg IVPB 500 MG/100 ML BAG IV ONE (19:32)
--- NOTE | 2018-06-13 19:34 | EDPHYS ---
Physician Documentation [facility] Name: Angela Rodriguez Age: 47 yrs Sex: Female : 1970 Arrival Date: 06/13/2018 Time: 15:13 Bed 6 Private MD: out of town, doctor ED Physician Richy Mathew HPI: 06/13 16:50 This 47 yrs old Female presents to ER via Ambulatory with complaints of Fever snw - Sent By Urologist. 16:50 The patient reports fever, that was measured at 102 degrees Fahrenheit. Onset: The snw symptoms/episode began/occurred suddenly, today. Modifying factors: Recent medications: Bactrim/Septra, Other macrobid, unaware of sick contact. Associated signs and symptoms: Pertinent positives: abdominal pain, chills, decreased appetite, nausea. Severity of symptoms: At their worst the symptoms were moderate. The patient has experienced similar episodes in the past. The patient has been recently seen by a physician: Dr. li urologist, CT scan to r/o fistula scheduled for 06/18/18. 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 - Social history:: Smoking status: Patient uses tobacco products, smokes one pack cigarettes per day. - Ebola Screening: : No symptoms or risks identified at this time. ROS: 16:46 Eyes: Negative for injury, pain, redness, and discharge, ENT: Negative for injury, snw pain, and discharge, Neck: Negative for injury, pain, and swelling. 16:46 Respiratory: Negative for shortness of breath, cough, wheezing, and pleuritic chest pain. 16:46 MS/Extremity: Negative for injury and deformity, Skin: Negative for injury, rash, and discoloration, Neuro: Negative for headache, weakness, numbness, tingling, and seizure. 16:46 Constitutional: Positive for body aches, chills, fever, malaise, poor PO intake. 16:46 Cardiovascular: Positive for palpitations. 16:46 Abdomen/GI: Positive for abdominal pain, nausea, abdominal distension. 16:46 Back: Positive for "back labor". 16:46 : Positive for frequent UTIs. Exam: 16:43 Head/Face: Normocephalic, atraumatic. Eyes: Pupils equal round and reactive to light, snw extra-ocular motions intact. Lids and lashes normal. Conjunctiva and sclera are non-icteric and not injected. Cornea within normal limits. Periorbital areas with no swelling, redness, or edema. ENT: Nares patent. No nasal discharge, no septal abnormalities noted. Tympanic membranes are normal and external auditory canals are clear. Oropharynx with no redness, swelling, or masses, exudates, or evidence of obstruction, uvula midline. Mucous membranes moist. Neck: Trachea midline, no thyromegaly or masses palpated, and no cervical lymphadenopathy. Supple, full range of motion without nuchal rigidity, or vertebral point tenderness. No Meningismus. Chest/axilla: Normal chest wall appearance and motion. Nontender with no deformity. No lesions are appreciated. 16:43 Respiratory: Lungs have equal breath sounds bilaterally, clear to auscultation and percussion. No rales, rhonchi or wheezes noted. No increased work of breathing, no retractions or nasal flaring. 16:43 MS/ Extremity: Pulses equal, no cyanosis. Neurovascular intact. Full, normal range of motion. Neuro: Awake and alert, GCS 15, oriented to person, place, time, and situation. Cranial nerves II-XII grossly intact. Motor strength 5/5 in all extremities. Sensory grossly intact. Cerebellar exam normal. Normal gait. 16:43 Constitutional: The patient appears alert, awake, febrile, in obvious pain, pale, uncomfortable. 16:43 Cardiovascular: Rate: tachycardic, Rhythm: regular, Edema: is not appreciated. 16:43 Abdomen/GI: Inspection: distension, that is moderate, Bowel sounds: diminished, in all quadrants, Palpation: moderate abdominal tenderness, in all quadrants. 16:43 Back: pain, that is moderate, referred from abdomen. 16:43 Skin: Appearance: Color: pale. Vital Signs: 15:43 BP 133 / 94; Pulse 111; Resp 18; Temp 100(TE); Pulse Ox 97% on R/A; Pain 9/10; hb 16:47 BP 132 / 99; Pulse 82; Resp 20; Pulse Ox 97% on R/A; sv 17:15 BP 116 / 85; Pulse 73; Resp 18; Pulse Ox 97% ; sv 17:18 Temp 98.9(O); sv 17:30 BP 122 / 71; Pulse 65; Resp 18; Pulse Ox 99% ; sv 17:30 Pain 5/10; sv 18:00 BP 110 / 62; Pulse 65; Resp 18; Pulse Ox 96% ; sv 18:30 BP 109 / 74; Pulse 75; Resp 18; Pulse Ox 96% ; sv 18:30 Pain 5/10; sv 19:00 BP 124 / 83; Pulse 73; Resp 18; Pulse Ox 97% ; sv 20:34 BP 115 / 81; Pulse 65; Resp 16; Temp 98.7; Pulse Ox 96% on R/A; Pain 0/10; aa1 MDM: 16:34 Patient medically screened. snw 18:25 Data reviewed: vital signs, nurses notes. Data interpreted: Pulse oximetry: on room air snw is 99 %. Interpretation: normal. Counseling: I had a detailed discussion with the patient and/or guardian regarding: the historical points, exam findings, and any diagnostic results supporting the discharge/admit diagnosis, lab results. 18:26 Transition of care: After a detail discussion of the patient's case, care is snw transferred to Sergio Pablo NP. 19:32 Counseling: I had a detailed discussion with the patient and/or guardian regarding: the pm1 historical points, exam findings, and any diagnostic results supporting the discharge/admit diagnosis, lab results, radiology results, the need for outpatient follow up, for definitive care, a assignment clerk, a urologist, to return to the emergency department if symptoms worsen or persist or if there are any questions or concerns that arise at home. 06/13 16:22 Order name: Basic Metabolic Panel; Complete Time: 17:20 snw 06/13 16:22 Order name: CBC with Diff; Complete Time: 17:20 snw 02/13 16:22 Order name: Hepatic Function; Complete Time: 17:20 snw 06/13 16:22 Order name: Lipase; Complete Time: 17:20 snw 06/13 16:22 Order name: Urine Culture 06/13 16:29 Order name: Procalcitonin; Complete Time: 17:41 snw 06/13 16:29 Order name: Lactate; Complete Time: 17:20 snw 06/13 16:29 Order name: Urine Microscopic Only; Complete Time: 18:08 snw 06/13 16:29 Order name: Blood Culture Adult (2) w 06/13 16:43 Order name: CT Abd/Pelvis - W/Contrast; Complete Time: 19:06 snw 06/13 16:50 Order name: Flu; Complete Time: 17:57 snw 06/13 16:59 Order name: CBC Smear Scan; Complete Time: 17:20 EDMS 06/13 17:19 Order name: Urine Dipstick--Ancillary (enter results); Complete Time: 19:31 ss 06/13 17:19 Order name: Urine --Ancillary (enter results); Complete Time: 19:31 ss 06/13 16:22 Order name: IV Saline Lock; Complete Time: 16:53 snw 06/13 16:22 Order name: Labs collected and sent; Complete Time: 16:53 snw 06/13 16:22 Order name: Castillo; Complete Time: 17:12 snw 06/13 16:29 Order name: Urine Dipstick-Ancillary (obtain specimen); Complete Time: 17:12 snw 06/13 16:43 Order name: NPO; Complete Time: 17:11 snw Administered Medications: 16:50 Drug: NS 0.9% 1000 ml Route: IV; Rate: 1 bolus; Site: left forearm; sv 18:00 Follow up: Response: No adverse reaction; IV Status: Completed infusion; IV Intake: sv 1000ml 16:50 Drug: Ativan 1 mg Route: IVP; Site: left forearm; sv 17:00 Follow up: Response: No adverse reaction sv 16:52 Drug: fentaNYL (PF) 25 mcg Route: IVP; Site: left forearm; sv 17:10 Follow up: Response: No adverse reaction; No change in condition; Pain is unchanged, sv physician notified 17:08 Drug: Zofran 4 mg Route: IVP; Site: left forearm; sv 17:30 Follow up: Response: No adverse reaction; Nausea is decreased sv 17:10 Drug: fentaNYL (PF) 25 mcg Route: IVP; Site: left forearm; sv 17:30 Follow up: Pain 5/10 Adult; Response: No adverse reaction; Marked relief of symptoms; sv Pain is decreased 18:09 Drug: fentaNYL (PF) 25 mcg Route: IVP; Site: left forearm; sv 18:30 Follow up: Pain 5/10 Adult; Response: No adverse reaction; Marked relief of symptoms; sv Pain is decreased 19:40 Drug: Doxycycline 100 mg Route: PO; aa1 20:33 Follow up: Response: No adverse reaction aa1 19:45 Drug: Flagyl 500 mg Volume: 100 ml; Route: IVPB; Rate: 200 ml/hr; Infused Over: 30 aa1 mins; Site: left forearm; 20:22 Follow up: IV Status: Completed infusion lp1 19:45 Drug: morphine 4 mg Route: IVP; Site: left forearm; aa1 20:33 Follow up: Response: No adverse reaction; Pain is decreased aa1 Disposition: 18:51 Co-signature as Attending Physician, Richy Mathew MD. rn Disposition: 06/13/18 19:33 Discharged to Home. Impression: Colitis. - Condition is Stable. - Discharge Instructions: Colitis. - Prescriptions for Flagyl 500 mg Oral Tablet - take 1 tablet by ORAL route every 8 hours for 10 days; 30 tablet. Doxycycline Hyclate 100 mg Oral Tablet - take 1 tablet by ORAL route every 12 hours; 20 tablet. - Medication Reconciliation Form, Thank You Letter, Antibiotic Education, Prescription Opioid Use form. - Follow up: Emergency Department; When: As needed; Reason: Worsening of condition. Follow up: Private Physician; When: 2 - 3 days; Reason: Recheck today's complaints, Continuance of care, Re-evaluation by your physician. - Problem is new. - Symptoms have improved. Signatures: Dispatcher [employer] Pricila Atkins RN RN sv Ina Quintanilla RN RN aa1 Anay Olea, SURFACE LOGGING SYSTEMS LOGGER-C SURFACE LOGGING SYSTEMS LOGGER-Csnw Richy Mathew MD MD rn Marinas, Patrick, CANDLE CUTTER CANDLE CUTTER pm1 Daxa Morales RN RN Hoda Montgomery RN lp1 Corrections: (The following items were deleted from the chart) 19:32 19:32 Counseling: I had a detailed discussion with the patient and/or guardian pm1 regarding: the historical points, exam findings, and any diagnostic results supporting the discharge/admit diagnosis, lab results, radiology results, the need for outpatient follow up, to return to the emergency department if symptoms worsen or persist or if there are any questions or concerns that arise at home, pm1 20:39 19:33 06/13/2018 19:33 Discharged to Home. Impression: Colitis. Condition is Stable. aa1 Forms are Medication Reconciliation Form, Thank You Letter, Antibiotic Education, Prescription Opioid Use. Follow up: Emergency Department; When: As needed; Reason: Worsening of condition. Follow up: Private Physician; When: 2 - 3 days; Reason: Recheck today's complaints, Continuance of care, Re-evaluation by your physician. Problem is new. Symptoms have improved. pm1
--- NOTE | 2018-06-13 19:34 | ER ---
Nurse's Notes [facility] Name: Anegla Rodriguez Age: 47 yrs Sex: Female : 1970 Arrival Date: 06/13/2018 Time: 15:13 Bed 6 Private MD: out of town, doctor Diagnosis: Colitis Presentation: 06/13 15:42 Presenting complaint: Sent by Dr. Garcia to r/o fistula. Pt reports abdominal pain, hb burning with urination, and fever. TMAX 102.1. Transition of care: patient was not received from another setting of care. Onset of symptoms was June 13, 2018. Risk Assessment: Do you want to hurt yourself or someone else? Patient reports no desire to harm self or others. Care prior to arrival: None. 15:42 Method Of Arrival: Ambulatory hb 15:42 Acuity: LIZZY 3 hb 16:45 Initial Sepsis Screen: Does the patient meet any 2 criteria? HR > 90 bpm. Yes Does the sv patient have a suspected source of infection? Yes: Dysuria/Frequency/Urgency/UTI. 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 - Social history:: Smoking status: Patient uses tobacco products, smokes one pack cigarettes per day. - Ebola Screening: : No symptoms or risks identified at this time. Screenin:14 Abuse screen: Denies threats or abuse. Denies injuries from another. Nutritional sv screening: No deficits noted. Tuberculosis screening: No symptoms or risk factors identified. Fall Risk None identified. Assessment: 16:45 General: Appears in no apparent distress. uncomfortable, well groomed, well developed, sv Behavior is calm, cooperative, appropriate for age. General: Reports fever for 2-3 days. Pain: Complains of pain in abdomen Pain currently is 9 out of 10 on a pain scale. Neuro: Level of Consciousness is awake, alert, obeys commands, Oriented to person, place, time, situation, Moves all extremities. Full function Gait is steady. Respiratory: Respiratory effort is even, unlabored, Respiratory pattern is regular, symmetrical. : Reports burning with urination. Derm: Skin is clammy, Skin is normal, Skin temperature is warm. 17:10 Reassessment: Patient appears in no apparent distress at this time. No changes from sv previously documented assessment. Patient and/or family updated on plan of care and expected duration. Pain level reassessed. Patient is alert, oriented x 3, equal unlabored respirations, skin warm/dry/pink. Pain: Pain currently is 9 out of 10 on a pain scale. 18:09 Reassessment: Patient appears in no apparent distress at this time. Patient and/or sv family updated on plan of care and expected duration. Pain level reassessed. Patient is alert, oriented x 3, equal unlabored respirations, skin warm/dry/pink. Pain: Pain currently is 9 out of 10 on a pain scale. 19:45 Reassessment: Patient appears in no apparent distress at this time. No changes from aa1 previously documented assessment. Patient is alert, oriented x 3, equal unlabored respirations, skin warm/dry/pink. Pt ordered for d/c however provider has order abx infusion prior to d/c. Will d/c pt once medication complete. 20:34 Reassessment: Patient appears in no apparent distress at this time. Patient is alert, aa1 oriented x 3, equal unlabored respirations, skin warm/dry/pink. Discussed d/c \T\ f/u instructions with pt \T\ spouse; denies questions or concerns at this time Patient states feeling better. Vital Signs: 15:43 BP 133 / 94; Pulse 111; Resp 18; Temp 100(TE); Pulse Ox 97% on R/A; Pain 9/10; hb 16:47 BP 132 / 99; Pulse 82; Resp 20; Pulse Ox 97% on R/A; sv 17:15 BP 116 / 85; Pulse 73; Resp 18; Pulse Ox 97% ; sv 17:18 Temp 98.9(O); sv 17:30 BP 122 / 71; Pulse 65; Resp 18; Pulse Ox 99% ; sv 17:30 Pain 5/10; sv 18:00 BP 110 / 62; Pulse 65; Resp 18; Pulse Ox 96% ; sv 18:30 BP 109 / 74; Pulse 75; Resp 18; Pulse Ox 96% ; sv 18:30 Pain 5/10; sv 19:00 BP 124 / 83; Pulse 73; Resp 18; Pulse Ox 97% ; sv 20:34 BP 115 / 81; Pulse 65; Resp 16; Temp 98.7; Pulse Ox 96% on R/A; Pain 0/10; aa1 ED Course: 14:30 First set of blood cultures drawn by me. jb1 14:45 Second set of blood cultures drawn by me. jb1 15:13 Patient arrived in ED. sb2 15:14 out of town, doctor is Private Physician. sb2 15:43 Triage completed. hb 15:44 Arm band placed on. hb 16:19 Anay Olea FNP-C is PHCP. snw 16:19 Richy Mathew MD is Attending Physician. snw 16:45 Patient has correct armband on for positive identification. Placed in gown. Bed in low sv position. Call light in reach. Side rails up X2. Adult w/ patient. Pulse ox on. NIBP on. Door closed. Elevated right. 16:52 Initial lab(s) drawn, by me, sent to lab. Flu and/or RSV swab sent to lab. Inserted jb1 saline lock: 22 gauge in left forearm, using aseptic technique. Blood collected. 17:00 Castillo cath inserted, using sterile technique, 16 Fr., by me, balloon inflated, to sv gravity drainage, urine specimen collected. returned clear sea green color. Patient tolerated well. 17:09 Pricila Sanchez, RN is Primary Nurse. sv 17:22 Awaiting lab results, Awaiting CT Scan. sv 18:22 PHCP role handed off by Anay Olea FNP-C pm1 18:22 Sergio Pablo NP is PHCP. pm1 18:[address] jg6 18:52 CT Abd/Pelvis - W/Contrast In Process Unspecified. EDMS 19:20 Report given to Ina HARE. sv 19:36 Primary Nurse role handed off by Pricila Sanchez, ANANYA sv 19:58 Ina Quintanilla, RN is Primary Nurse. aa1 20:34 No provider procedures requiring assistance completed. Castillo cath removed intact, aa1 balloon deflated. IV discontinued, intact, bleeding controlled, No redness/swelling at site. Pressure dressing applied. Administered Medications: 16:50 Drug: NS 0.9% 1000 ml Route: IV; Rate: 1 bolus; Site: left forearm; sv 18:00 Follow up: Response: No adverse reaction; IV Status: Completed infusion; IV Intake: sv 1000ml 16:50 Drug: Ativan 1 mg Route: IVP; Site: left forearm; sv 17:00 Follow up: Response: No adverse reaction sv 16:52 Drug: fentaNYL (PF) 25 mcg Route: IVP; Site: left forearm; sv 17:10 Follow up: Response: No adverse reaction; No change in condition; Pain is unchanged, sv physician notified 17:08 Drug: Zofran 4 mg Route: IVP; Site: left forearm; sv 17:30 Follow up: Response: No adverse reaction; Nausea is decreased sv 17:10 Drug: fentaNYL (PF) 25 mcg Route: IVP; Site: left forearm; sv 17:30 Follow up: Pain 5/10 Adult; Response: No adverse reaction; Marked relief of symptoms; sv Pain is decreased 18:09 Drug: fentaNYL (PF) 25 mcg Route: IVP; Site: left forearm; sv 18:30 Follow up: Pain 5/10 Adult; Response: No adverse reaction; Marked relief of symptoms; sv Pain is decreased 19:40 Drug: Doxycycline 100 mg Route: PO; aa1 20:33 Follow up: Response: No adverse reaction aa1 19:45 Drug: Flagyl 500 mg Volume: 100 ml; Route: IVPB; Rate: 200 ml/hr; Infused Over: 30 aa1 mins; Site: left forearm; 20:22 Follow up: IV Status: Completed infusion lp1 19:45 Drug: morphine 4 mg Route: IVP; Site: left forearm; aa1 20:33 Follow up: Response: No adverse reaction; Pain is decreased aa1 Intake: 17:19 PO: 500ml (Contrast); Total: 500ml. sv 18:00 IV: 1000ml; Total: 1500ml. sv 17:19 Called and informed Ngoc in [place], pt finished contrast. sv Outcome: 19:33 Discharge ordered by . pm1 20:34 Discharged to home ambulatory, with significant other. aa1 20:34 Condition: good 20:34 Discharge instructions given to patient, significant other, Instructed on discharge instructions, follow up and referral plans. medication usage, Demonstrated understanding of instructions, follow-up care, medications, Prescriptions given X 2. 20:39 Patient left the ED. aa1 Signatures: Dispatcher [employer] EDMS Sylvain Redd jb1 Pricila Sanchez, RN RN Ina Quintanilla RN RN aa1 Anay Olea, FARM EQUIPMENT ASSEMBLER-C FARM EQUIPMENT ASSEMBLER-Csnw Hoda Canseco RN RN lp1 Sergio Pablo, COMMUNITY RELATIONS COORDINATOR COMMUNITY RELATIONS COORDINATOR pm1 Daxa Morales, ANANYA RN Marya Barrios 2 Araceli Leavitt6
[2018-06-13] MEDS ORDERED: MORPHINE 4 MG/ML SYR ONE (19:50)
[2018-06-13 22:26] VITALS: BP 115/81; TEMP 98.7; O2SAT 96
== END 2018-06-13 20:39 | disposition home or self-care (01) ==
LOC: ER 15:10
DX: K52.9 Noninfective gastroenteritis and colitis, unspecified (principal); F17.210 Nicotine dependence, cigarettes, uncomplicated; G40.909 Epilepsy, unspecified, not intractable, without status epilepticus; F31.9 Bipolar disorder, unspecified; E03.9 Hypothyroidism, unspecified; Z88.1 Allergy status to other antibiotic agents; Z88.8 Allergy status to other drugs, medicaments and biological substances
CPT/HCPCS: 36415; 74177; 80048; 80076; 81025; 83605; 83690; 84145; 85025; 87040 ×2; 87086; 87088; 87804 ×2; J2405; J3010 ×2; J7030; Q9967; 81003; 81015

== ENCOUNTER 2018-07-05 13:51 | Emergency (ER) | payer OTHER ==
--- OUTSIDE RECORDS SUMMARY | 2018-07-05 13:53 | XMS REPORT ---
:1970 [facility] Address [address] [place] [address] Dr. Crawford [address] [place] [address] Care Team Providers Name Role Phone DR [...] Department ID 2016-11-04 Inpatient C NARESH CASH [facility] [id number] 09:30:00 EDGARD 2016-07-15 2016-07-19 Inpatient [address] [facility] [id number] 18:47:00 10:30:00 BLAKE 2013-11-19 2013-11-19 Emergency E MOOK [facility] [id number] 10:08:00 12:55:00 RADHA Results Test Description Test Time Test Comments Text Results Atomic Results Result Comments CT ABDOMEN/PELVIS WITH 2016-07-26 14:26:[address] [id number] IMAGING REPORTPatient Name: Anne DEL TOROte of Service: [id number]: 45 Sex: F Order #: [id number] Room: ERSDOB: 1970 X-Ray Number: [id number] Record Number: [id number] Hospital Number: [id number] Physician: KISHAN MUNOZ -Ordering Physician: HERNANDEZ MONTEMAYOR [...] Syed 2016-07-26 14:23:48 CT ABDOMEN/PELVIS 2016-07-17 02:49:00 [address] REPORTPatient Name: Manuel DEL TORO of Service: [id number]: 45 Sex: F Order #: [id number] Room: [facility] 2NEDOB: 1970 X-Ray Number: [id number] Record Number: [id number] Hospital Number: [id number] Physician: BLAKE ALLEN -Ordering Physician: AURORA LOWERY [...] 2016-07-17 02:47:19 ABDOMEN 2 VIEWS 2016-07-15 12:14:[address] [id number] IMAGING REPORTPatient Name: Manuel DEL TORO of Service: [id number]: 45 Sex: F Order #: [id number] [facility] 1970 X-Ray Number: [id number] Record Number: [id number] Hospital Number: [id number] Physician: Austin TEJEDA Physician: Elvis GARCIA 2 [...]
--- OUTSIDE RECORDS SUMMARY | 2018-07-05 13:53 | XMS REPORT | Clinical Summary ---
:1970 Author Organization [facility] Address [address] [place] [address] Care Team Providers Name Role Phone Eryn [...] Raz Mchugh MD infectious (Primary Dx) after 07/04/2017 Social History Tobacco Use Types Packs/Day Years [...] INFLUENZA VACCINE 11/29/2017 Implants Implanted Type Area Health Care Assistant Device Identifier Shelf Expiration Model / [...] procedure are in the results section. after 07/04/2017 Results Estimated GFR (08/22/2017 5:35 AM CDT)Only the most recent of8 resultswithin the time period is included. GFR Non Af Amer >90 mL/min/1.73 m2 [facility] DEPARTMENT OF PATHOLOGY AND GENOMIC MEDICINE GFR Af Amer >90 mL/min/1.73 m2 [facility] DEPARTMENT OF Comment: PATHOLOGY AND [...] specimen Performing Organization Address City/State/Zipcode Phone Number [facility] DEPARTMENT OF PATHOLOGY [address] [place] [address] AND GENOMIC MEDICINE CBC with platelet and differential (08/22/2017 5:35 AM CDT)Only the most recent of6 resultswithin the time period is included. WBC 7.1 4.5 - 11.0 k/uL [facility] DEPARTMENT OF PATHOLOGY AND GENOMIC MEDICINE RBC 3.78 (L) 4.20 - 5.50 m/uL [facility] DEPARTMENT OF PATHOLOGY AND GENOMIC MEDICINE HGB 11.9 (L) 12.0 - 16.0 g/dL [facility] DEPARTMENT OF PATHOLOGY AND GENOMIC MEDICINE HCT 35.9 (L) 37.0 - 47.0 % [facility] DEPARTMENT OF PATHOLOGY AND GENOMIC MEDICINE MCV 95.0 82.0 - 100.0 fL [facility] DEPARTMENT OF PATHOLOGY AND GENOMIC MEDICINE MCH 31.5 27.0 - 34.0 pg [facility] DEPARTMENT OF PATHOLOGY AND GENOMIC MEDICINE MCHC 33.1 31.0 - 37.0 g/dL [facility] DEPARTMENT OF PATHOLOGY AND GENOMIC MEDICINE RDW - SD 43.0 37.0 - 55.0 fL [facility] DEPARTMENT OF PATHOLOGY AND GENOMIC MEDICINE MPV 9.3 6.9 - 11.0 fL [facility] DEPARTMENT OF PATHOLOGY AND GENOMIC MEDICINE Platelet count 230 150 - 400 K/uL [facility] DEPARTMENT OF PATHOLOGY AND GENOMIC MEDICINE Nucleated RBC 0.00 /100 WBC [facility] DEPARTMENT OF PATHOLOGY AND GENOMIC MEDICINE Neutrophils 77.2 (H) 39.0 - 69.0 % [facility] DEPARTMENT OF PATHOLOGY AND GENOMIC MEDICINE Lymphocytes 18.6 (L) 25.0 - 45.0 % [facility] DEPARTMENT OF PATHOLOGY AND GENOMIC MEDICINE Monocytes 3.8 0.0 - 10.0 % [facility] DEPARTMENT OF PATHOLOGY AND GENOMIC MEDICINE Eosinophils 0.0 0.0 - 5.0 % [facility] DEPARTMENT OF PATHOLOGY AND GENOMIC MEDICINE Basophils 0.1 0.0 - 1.0 % [facility] DEPARTMENT OF PATHOLOGY AND GENOMIC MEDICINE Immature granulocytes 0.3 0.0 - 1.0 % [facility] DEPARTMENT OF PATHOLOGY AND GENOMIC MEDICINE Specimen Blood Performing Organization Address City/[facility]/Zipcode Phone Number [facility] DEPARTMENT OF PATHOLOGY [id number] [place] [address]. [place] [address] AND [email or web address] [facility] Magnesium level (08/22/2017 5:35 AM CDT)Only the most recent of3 resultswithin the time period is included. Magnesium 1.8 1.6 - 2.6 mg/dL [facility] DEPARTMENT OF PATHOLOGY AND GENOMIC MEDICINE Specimen Plasma specimen Performing Organization Address [facility] Centercode Phone Number [facility] DEPARTMENT OF PATHOLOGY [address] [place] [address]. [place] [address] AND [email or web address] [facility] Comprehensive metabolic panel (08/22/2017 5:35 AM CDT)Only the most recent of4 resultswithin the time period is included. Sodium 141 135 - 148 mEq/L [facility] DEPARTMENT OF PATHOLOGY AND GENOMIC MEDICINE Potassium 4.2 3.5 - 5.0 mEq/L [facility] DEPARTMENT OF PATHOLOGY AND GENOMIC MEDICINE Chloride 101 98 - 112 mEq/L [facility] DEPARTMENT OF PATHOLOGY AND GENOMIC MEDICINE CO2 26 24 - 31 mEq/L [facility] DEPARTMENT OF PATHOLOGY AND GENOMIC MEDICINE Anion gap 14 7 - 15 mEq/L [facility] DEPARTMENT OF Comment: PATHOLOGY AND GENOMIC Starting from July , anion gap calculation MEDICINE no longer incorporates potassium. Please note the change. BUN 8 6 - 20 mg/dL [facility] DEPARTMENT OF PATHOLOGY AND GENOMIC MEDICINE Creatinine 0.6 0.5 - 0.9 mg/dL [facility] DEPARTMENT OF PATHOLOGY AND GENOMIC MEDICINE Glucose 119 (H) 65 - 99 mg/dL [facility] DEPARTMENT OF PATHOLOGY AND GENOMIC MEDICINE Calcium 8.9 8.3 - 10.2 mg/dL [facility] DEPARTMENT OF PATHOLOGY AND GENOMIC MEDICINE Protein 6.2 (L) 6.3 - 8.3 g/dL [facility] DEPARTMENT OF PATHOLOGY AND GENOMIC MEDICINE Albumin 3.6 3.5 - 5.0 g/dL [facility] DEPARTMENT OF PATHOLOGY AND GENOMIC MEDICINE A/G ratio 1.4 0.7 - 3.8 [facility] DEPARTMENT OF PATHOLOGY AND GENOMIC MEDICINE Alkaline phosphatase 63 35 - 104 U/L [facility] DEPARTMENT OF PATHOLOGY AND GENOMIC MEDICINE AST 22 10 - 35 U/L [facility] DEPARTMENT OF PATHOLOGY AND GENOMIC MEDICINE ALT 44 5 - 50 U/L [facility] DEPARTMENT OF PATHOLOGY AND GENOMIC MEDICINE Total bilirubin <0.2 0.2 - 1.2 mg/dL [facility] DEPARTMENT OF PATHOLOGY AND GENOMIC MEDICINE Specimen Plasma specimen Performing Organization Address [facility] Centercode Phone Number [facility] DEPARTMENT OF PATHOLOGY [address] [place] [address] AND [facility] Sedimentation rate (08/21/2017 4:10 AM CDT)Only the most recent of2 resultswithin the time period is included. Sedimentation rate 21 (H) 0 - 20 mm/hr [facility] DEPARTMENT OF PATHOLOGY AND GENOMIC MEDICINE Specimen Blood Performing Organization Address [facility] Centercotn Phone Number [facility] DEPARTMENT OF PATHOLOGY [address] [place] [address] AND [facility] CRP high sensitivity (08/21/2017 4:10 AM CDT) CRP, high sensitivity 0.47 mg/L [facility] DEPARTMENT OF Comment: PATHOLOGY AND [facility] Please note this test is different from [...] infection Specimen Plasma specimen Performing Organization Address [facility] Centercotn Phone Number [facility] DEPARTMENT OF PATHOLOGY AND [address] [place] [id number] [place] [address] Basic metabolic panel (08/21/2017 4:10 AM CDT)Only the most recent of4 resultswithin the time period is included. Sodium 143 135 - 148 mEq/L [facility] DEPARTMENT OF PATHOLOGY AND GENOMIC MEDICINE Potassium 3.8 3.5 - 5.0 mEq/L [facility] DEPARTMENT OF PATHOLOGY AND GENOMIC MEDICINE Chloride 106 98 - 112 mEq/L [facility] DEPARTMENT OF PATHOLOGY AND GENOMIC MEDICINE CO2 26 24 - 31 mEq/L [facility] DEPARTMENT OF PATHOLOGY AND GENOMIC MEDICINE Anion gap 11 7 - 15 mEq/L [facility] DEPARTMENT OF Comment: PATHOLOGY AND GENOMIC Starting from July , anion gap calculation MEDICINE no longer incorporates potassium. Please note the change. BUN <4 (L) 6 - 20 mg/dL [facility] DEPARTMENT OF PATHOLOGY AND GENOMIC MEDICINE Creatinine 0.6 0.5 - 0.9 mg/dL [facility] DEPARTMENT OF PATHOLOGY AND GENOMIC MEDICINE Glucose 105 (H) 65 - 99 mg/dL [facility] DEPARTMENT OF PATHOLOGY AND GENOMIC MEDICINE Calcium 9.1 8.3 - 10.2 mg/dL [facility] DEPARTMENT OF PATHOLOGY AND GENOMIC MEDICINE Specimen Plasma specimen Performing Organization Address City/[facility]/Zipcode Phone Number [facility] DEPARTMENT OF PATHOLOGY [address] [place] [address] AND [facility] Occult blood, stool (08/17/2017 9:30 AM CDT) Occult blood, stool Negative for occult blood. [facility] DEPARTMENT OF Comment: PATHOLOGY AND GENOMIC Specimen Information MEDICINE Specimen Source: Stool Specimen Site: Nonpreserved Specimen Stool - Nonpreserved Performing Organization Address [facility] Centercode Phone Number [facility] DEPARTMENT OF PATHOLOGY [address] [place] [address] AND [facility] XR Abdomen 1 Vw (08/16/2017 12:25 PM CDT) Narrative Performed At EXAMINATION:XR ABDOMEN 1 VW [facility] CLINICAL HISTORY:Bowel obstruction COMPARISON:None. IMPRESSION: Loops of dilated small bowel compatible with an ileus versus partial small bowel obstruction A spinal stimulator pump projects over the right lower quadrant The gallbladder has been removed Bony structures are within normal limits [id number] Procedure Note Interface, Radiology Results Incoming - 08/16/2017 1:04 PM CDT EXAMINATION: XR ABDOMEN 1 VW CLINICAL HISTORY: Bowel obstruction COMPARISON: None. IMPRESSION: Loops of dilated small bowel compatible with an ileus versus partial small bowel obstruction A spinal stimulator pump projects over the right lower quadrant The gallbladder has been removed Bony structures are within normal limits [id number] Performing Organization Address City/[facility]/Zipcode Phone Number [facility] [address] [place] [address] Gastrointestinal panel (08/15/2017 3:40 AM CDT) Gastrointestinal panel Negative for all pathogens tested: [facility] DEPARTMENT OF Negative for Salmonella [...] Specimen Stool - Nonpreserved Performing Organization Address [facility] [place] Phone Number [facility] DEPARTMENT OF PATHOLOGY AND [address] [place], [place] [phone] [email or web address] MEDICINE C difficile toxin (07/19/2017 7:50 PM CDT) Clostridium difficile No Clostridium difficle toxin present [facility] DEPARTMENT OF toxin Comment: PATHOLOGY AND GENOMIC Specimen Information MEDICINE Specimen Source: Stool Specimen Site: Nonpreserved Specimen Stool - Nonpreserved Performing Organization Address [facility] [place] Phone Number [facility] DEPARTMENT OF PATHOLOGY AND [address] [place] [id number] GENOMIC MEDICINE C-reactive protein (07/19/2017 10:08 AM CDT) CRP <0.30 0.00 - 0.50 mg/dL [facility] DEPARTMENT OF PATHOLOGY AND GENOMIC MEDICINE Specimen Plasma specimen Performing Organization Address [facility] [place] Phone Number [facility] DEPARTMENT OF PATHOLOGY AND [address] [place] [id number] GENOMIC MEDICINE after 07/04/2017 Insurance Payer Benefit Plan / Group Subscriber ID Type Phone Address MEDICARE MEDICARE PART A AND B xxxxxxxxxx Medicare [place] MEDICA[place] MEDICAID xxxxxxxxx Medicaid
[2018-07-05 15:38] LABS: Absolute Lymphocytes (CBC) 2.5 K/uL (0.7-4.9); Absolute Monocytes 0.6 K/uL (0.1-1.3); Absolute Neutrophil 5.2 K/uL (1.8-8.0); Basophils % 0.6 % (0-1.3); Eosinophils % 3.4 % (0-4.4); Hematocrit 39.5 % (36.0-45.0); MPV 7.4 fL (7.6-11.3); Monocytes % 6.9 % (3.3-12.3); RBC Red Blood Cell Count 4.16 M/uL (3.86-4.86)
[2018-07-05] MEDS ORDERED: MORPHINE 2 MG/ML SYR ONE ×2 (15:39→17:40)
[2018-07-05] MEDS ORDERED: ONDANSETRON 4 MG/2 ML VIAL ONE (15:39)
[2018-07-05] MEDS ORDERED: NA CHLORIDE 0.9% 1,000 ML ONE (15:39)
[2018-07-05] MEDS ORDERED: METHYLPREDNISOLONE 40 MG INJ ONE (15:39)
[2018-07-05] MEDS ORDERED: DIAZEPAM 10 MG/2 ML INJ SYRINGE IV ONE (16:00)
[2018-07-05 16:04] LABS: Albumin 3.5 g/dL (3.4-5.0); Bilirubin Direct 0.1 mg/dL (0-0.2); Bilirubin Total 0.4 mg/dL (0.2-1.0); Potassium 4.3 mmol/L (3.5-5.1); Protein, Total 6.6 g/dL (6.4-8.2)
--- NOTE | 2018-07-05 17:11 | ER ---
Nurse's Notes [facility] Name: Angela Rodriguez Age: 47 yrs Sex: Female : 1970 Arrival Date: 07/05/2018 Time: 13:53 Bed 15 Private MD: Diagnosis: Crohn's disease [regional enteritis] Presentation: 07/05 14:04 Presenting complaint: Upper abdominal pain and N/V/D since last night. Not tolerating hb fluids. Transition of care: patient was not received from another setting of care. Onset of symptoms was July 04, 2018. Risk Assessment: Do you want to hurt yourself or someone else? Patient reports no desire to harm self or others. Care prior to arrival: Medication(s) given: Tylenol, at 1130. 14:04 Method Of Arrival: Ambulatory hb 14:04 Acuity: LIZZY 3 hb 18:13 Initial Sepsis Screen: Does the patient meet any 2 criteria? No. Patient's initial aj1 sepsis screen is negative. Does the patient have a suspected source of infection? No. Patient's initial sepsis screen is negative. Historical: - Allergies: 14:05 Ciprofloxacin; hb 14:05 Phenergan; hb - Home Meds: 14:05 DILAUDID IN PAIN PUMP [Active]; Lialda 1.2 gram Oral grps 2 tabs once daily [Active]; hb pantoprazole 40 mg intravenous solr [Active]; Stelara subcutaneous [Active]; Klonopin Oral [Active]; - PMHx: 14:05 Bipolar disorder; Seizures; Crohn's; Chronic pain; Endometrosis; Hypothyroidism; hb - PSHx: 14:05 Hysterectomy; Bowel resection; Cholecystectomy; hb - Immunization history:: Adult Immunizations up to date. - Social history:: Smoking status: Patient/guardian denies using tobacco. - Ebola Screening: : No symptoms or risks identified at this time. - Family history:: not pertinent. - Hospitalizations: : No recent hospitalization is reported. - History obtained from: significant other. Screenin:16 Abuse screen: Denies threats or abuse. Denies injuries from another. Nutritional aj1 screening: No deficits noted. Tuberculosis screening: No symptoms or risk factors identified. 18:14 Fall Risk None identified. aj1 Assessment: 15:16 General: Appears in no apparent distress. uncomfortable, Behavior is cooperative, aj1 crying, restless. Pain: Complains of pain in right upper quadrant and left upper quadrant Pain currently is 10 out of 10 on a pain scale. Neuro: Level of Consciousness is awake, alert, obeys commands, Oriented to person, place, time, situation. Cardiovascular: Patient's skin is warm and dry. Respiratory: Airway is patent Respiratory effort is even, unlabored, Respiratory pattern is regular, symmetrical. GI: Abdomen is non-distended, Abd is soft X 4 quads Abdomen is tender to palpation X 4 quads. Reports upper abdominal pain, diarrhea, nausea, vomiting. : No signs and/or symptoms were reported regarding the genitourinary system. EENT: No signs and/or symptoms were reported regarding the EENT system. Derm: No signs and/or symptoms reported regarding the dermatologic system. Skin is pink, warm \T\ dry. normal. Musculoskeletal: No signs and/or symptoms reported regarding the musculoskeletal system. Circulation, motion, and sensation intact. 16:30 Reassessment: Patient states that she is still hurting. Notified Mayur Small NP. Patient canelo was instructed to give Valium time to kick in as this may also help with her pain. 16:48 Reassessment: Patient states that she is still hurting. Notified Mayur Small NP. No new aj1 orders received at this time. 17:30 Reassessment: Patient states that she would like more pain medication prior to being aj1 discharged. Notified Mayur Small NP. Order received. Vital Signs: 14:05 BP 109 / 88; Pulse 66; Resp 16; Temp 98; Pulse Ox 98% on R/A; Pain 8/10; hb 15:20 BP 136 / 79; Pulse 72; Resp 18; Pulse Ox 99% on R/A; aj1 16:30 BP 139 / 81; Pulse 70; Resp 18; Pulse Ox 97% on R/A; aj1 17:30 BP 127 / 82; Pulse 65; Resp 18; Pulse Ox 97% ; aj1 ED Course: 13:53 Patient arrived in ED. rg4 14:05 Triage completed. hb 14:05 Arm band placed on right wrist. hb 14:46 Audra Small FNP [facility]. kav 14:46 Andre Krishna MD is Attending Physician. kav 15:16 Beronica Flores, RN is Primary Nurse. aj1 15:16 Patient has correct armband on for positive identification. Bed in low position. Call aj1 light in reach. Side rails up X 1. 15:16 No provider procedures requiring assistance completed. Inserted saline lock: 22 gauge aj1 in left forearm, using aseptic technique. Blood collected. 18:13 IV discontinued, intact, bleeding controlled, No redness/swelling at site. Pressure aj1 dressing applied. Administered Medications: 15:37 Drug: morphine 2 mg Route: IVP; Site: right forearm; aj1 16:44 Follow up: Response: No adverse reaction; Pain is unchanged, physician notified aj1 15:37 Drug: Zofran 4 mg Route: IVP; Site: left antecubital; aj1 16:30 Follow up: Response: No adverse reaction; Pain is unchanged, physician notified aj1 15:38 Drug: NS 0.9% 1000 ml Route: IV; Rate: 1000 ml; Site: left forearm; aj1 16:43 Follow up: IV Status: Completed infusion; IV Intake: 1000ml aj1 16:23 Drug: Valium 1 mg Route: IVP; Site: left forearm; aj1 17:30 Follow up: Response: No adverse reaction aj1 16:23 Drug: MethylPrednisoLONE 40 mg Route: IVP; Site: left forearm; aj1 17:30 Follow up: Response: No adverse reaction aj1 17:31 Drug: morphine 2 mg Route: IVP; Site: left forearm; aj1 18:11 Follow up: Response: No adverse reaction; Pain is decreased aj1 Intake: 16:43 IV: 1000ml; Total: 1000ml. aj1 Outcome: 17:10 Discharge ordered by . roxanna 18:14 Discharged to home ambulatory. aj1 18:14 Condition: good 18:14 Discharge instructions given to patient, Instructed on discharge instructions, follow up and referral plans. medication usage, Demonstrated understanding of instructions, follow-up care, medications, Prescriptions given X 3. 18:15 Patient left the ED. aj1 Signatures: Beronica Flores, RN RN aj1 Audra Small, SURVEY WORKERS SUPERVISOR SUR[employer] WORKERS SUPERVISOR Daxa Dacosta RN RN hb Garcia, Rubi rg4
--- NOTE | 2018-07-05 17:11 | EDPHYS ---
Physician Documentation [facility] Name: Angela Rodriguez Age: 47 yrs Sex: Female : 1970 Arrival Date: 07/05/2018 Time: 13:53 Bed 15 Private MD: ED Physician Andre Krishna HPI: 07/05 14:58 This 47 yrs old Female presents to ER via Ambulatory with complaints of kav Crohns Flare Up. 15:24 The patient presents with abdominal pain that is diffuse. Onset: The symptoms/episode kav began/occurred acutely. 15:24 Onset: The symptoms/episode began/occurred 1 day(s) ago. The symptoms do not radiate. kav Associated signs and symptoms: Pertinent positives: nausea, vomiting, and diarrhea, Pertinent negatives: fever. The symptoms are described as crampy, sharp. Modifying factors: The symptoms are alleviated by nothing, the symptoms are aggravated by food. Severity of pain: At its worst the pain was severe just prior to arrival. The patient has experienced similar episodes in the past, chronically. The patient has been recently seen by a physician: the patient's primary care provider, 1 week(s) ago, with similar presenting complaints, and apparently given a diagnosis of "Crohn's flare" and given prescription for Doxycycline and Flagyl. Historical: - Allergies: 14:05 Ciprofloxacin; hb 14:05 Phenergan; hb - Home Meds: 14:05 DILAUDID IN PAIN PUMP [Active]; Lialda 1.2 gram Oral grps 2 tabs once daily [Active]; hb pantoprazole 40 mg intravenous solr [Active]; Stelara subcutaneous [Active]; Klonopin Oral [Active]; - PMHx: 14:05 Bipolar disorder; Seizures; Crohn's; Chronic pain; Endometrosis; Hypothyroidism; hb - PSHx: 14:05 Hysterectomy; Bowel resection; Cholecystectomy; hb - Immunization history:: Adult Immunizations up to date. - Social history:: Smoking status: Patient/guardian denies using tobacco. - Ebola Screening: : No symptoms or risks identified at this time. - Family history:: not pertinent. - Hospitalizations: : No recent hospitalization is reported. - History obtained from: significant other. ROS: 15:27 Constitutional: Negative for fever, chills, and weight loss, Eyes: Negative for injury, kav pain, redness, and discharge, ENT: Negative for injury, pain, and discharge, Neck: Negative for injury, pain, and swelling, Cardiovascular: Negative for chest pain, palpitations, and edema, Respiratory: Negative for shortness of breath, cough, wheezing, and pleuritic chest pain, Back: Negative for injury and pain, : Negative for injury, bleeding, discharge, and swelling, MS/Extremity: Negative for injury and deformity, Skin: Negative for injury, rash, and discoloration, Neuro: Negative for headache, weakness, numbness, tingling, and seizure, Psych: Negative for depression, anxiety, suicide ideation, homicidal ideation, and hallucinations, Allergy/Immunology: Negative for hives, rash, and allergies, Endocrine: Negative for neck swelling, polydipsia, polyuria, polyphagia, and marked weight changes, Hematologic/Lymphatic: Negative for swollen nodes, abnormal bleeding, and unusual bruising. 15:27 Abdomen/GI: Positive for abdominal pain, nausea, vomiting, and diarrhea. Exam: 15:27 Constitutional: This is a well developed, well nourished patient who is awake, alert, kav and in no acute distress. Head/Face: Normocephalic, atraumatic. Eyes: Pupils equal round and reactive to light, extra-ocular motions intact. Lids and lashes normal. Conjunctiva and sclera are non-icteric and not injected. Cornea within normal limits. Periorbital areas with no swelling, redness, or edema. ENT: Nares patent. No nasal discharge, no septal abnormalities noted. Tympanic membranes are normal and external auditory canals are clear. Oropharynx with no redness, swelling, or masses, exudates, or evidence of obstruction, uvula midline. Mucous membranes moist. Neck: Trachea midline, no thyromegaly or masses palpated, and no cervical lymphadenopathy. Supple, full range of motion without nuchal rigidity, or vertebral point tenderness. No Meningismus. Chest/axilla: Normal chest wall appearance and motion. Nontender with no deformity. No lesions are appreciated. Cardiovascular: Regular rate and rhythm with a normal S1 and S2. No gallops, murmurs, or rubs. Normal PMI, no JVD. No pulse deficits. Respiratory: Lungs have equal breath sounds bilaterally, clear to auscultation and percussion. No rales, rhonchi or wheezes noted. No increased work of breathing, no retractions or nasal flaring. Back: No spinal tenderness. No costovertebral tenderness. Full range of motion. Skin: Warm, dry with normal turgor. Normal color with no rashes, no lesions, and no evidence of cellulitis. MS/ Extremity: Pulses equal, no cyanosis. Neurovascular intact. Full, normal range of motion. Neuro: Awake and alert, GCS 15, oriented to person, place, time, and situation. Cranial nerves II-XII grossly intact. Motor strength 5/5 in all extremities. Sensory grossly intact. Cerebellar exam normal. Normal gait. Psych: Awake, alert, with orientation to person, place and time. Behavior, mood, and affect are within normal limits. 15:27 Abdomen/GI: Inspection: abdomen appears normal, Bowel sounds: active, Palpation: soft, in all quadrants, in the right upper quadrant, left upper quadrant, right lower quadrant and left lower quadrant, mild abdominal tenderness. Vital Signs: 14:05 BP 109 / 88; Pulse 66; Resp 16; Temp 98; Pulse Ox 98% on R/A; Pain 8/10; hb 15:20 BP 136 / 79; Pulse 72; Resp 18; Pulse Ox 99% on R/A; aj1 16:30 BP 139 / 81; Pulse 70; Resp 18; Pulse Ox 97% on R/A; aj1 17:30 BP 127 / 82; Pulse 65; Resp 18; Pulse Ox 97% ; aj1 MDM: 14:46 Medical screening is not applicable. kav 17:08 Differential diagnosis: Crohn's Flare. Data reviewed: vital signs, nurses notes, lab [facility] test result(s). 07/05 15:20 Order name: Basic Metabolic Panel; Complete Time: 16:15 [facility] 07/05 16:16 Interpretation: Normal except: CL 108; GFR 86; CA 8.3. [facility] 07/05 15:20 Order name: CBC with Diff; Complete Time: 16:15 [facility] 07/05 16:16 Interpretation: Normal except: MPV 7.4. [facility] 07/05 15:20 Order name: Creatinine for Radiology; Complete Time: 16:16 [facility] 07/05 16:16 Interpretation: Within normal limits. [facility] 07/05 15:20 Order name: Hepatic Function; Complete Time: 16:16 [facility] 07/05 16:16 Interpretation: Normal except: AST 14. [facility] 07/05 15:20 Order name: Lipase; Complete Time: 16:16 [facility] 07/05 16:16 Interpretation: Within normal limits. [facility] 07/05 15:20 Order name: IV Saline Lock; Complete Time: 15:21 [facility] 07/05 15:20 Order name: Labs collected and sent; Complete Time: 15:21 kav Administered Medications: 15:37 Drug: morphine 2 mg Route: IVP; Site: right forearm; aj1 16:44 Follow up: Response: No adverse reaction; Pain is unchanged, physician notified aj1 15:37 Drug: Zofran 4 mg Route: IVP; Site: left antecubital; aj1 16:30 Follow up: Response: No adverse reaction; Pain is unchanged, physician notified aj1 15:38 Drug: NS 0.9% 1000 ml Route: IV; Rate: 1000 ml; Site: left forearm; aj1 16:43 Follow up: IV Status: Completed infusion; IV Intake: 1000ml aj1 16:23 Drug: Valium 1 mg Route: IVP; Site: left forearm; aj1 17:30 Follow up: Response: No adverse reaction aj1 16:23 Drug: MethylPrednisoLONE 40 mg Route: IVP; Site: left forearm; aj1 17:30 Follow up: Response: No adverse reaction aj1 17:31 Drug: morphine 2 mg Route: IVP; Site: left forearm; aj1 18:11 Follow up: Response: No adverse reaction; Pain is decreased aj1 Disposition: 07/06 07:01 Co-signature as Attending Physician, Andre Krishna MD I agree with the assessment and kdr plan of care. Disposition: 07/05/18 17:10 Discharged to Home. Impression: Crohn's disease [regional enteritis]. - Condition is Stable. - Prescriptions for Doxycycline Hyclate 100 mg Oral Tablet - take 1 tablet by ORAL route every 12 hours; 20 tablet. Tramadol 50 mg Oral Tablet - take 1 tablet by ORAL route every 8 hours as needed; 12 tablet. Prednisone 20 mg Oral Tablet - take 2 tablet by ORAL route once daily for 5 days; 10 tablet. - Thank You Letter, Antibiotic Education, Prescription Opioid Use form. - Follow up: Private Physician; When: 5 - 6 days; Reason: Recheck today's complaints, Continuance of care, Re-evaluation by your physician. - Problem is chronic. - Symptoms have improved. - Notes: f/u with PCP/Dr. Jones/Hans Ruvalcaba in 5-7 days for post-ED evaluation and treatment ensure adequate hydration Signatures: Dispatcher [employer] EDMS Beronica Flores, RN RN aj1 Andre Krishna MD MD kdr Vern, Katherine, COMMERCIAL CREDIT SPECIALIST COMMERCIAL CREDIT SPECIALIST Daxa Dacosta, RN RN Corrections: (The following items were deleted from the chart) 07/05 16:16 16:15 Normal except: CL 108; GFR 86. kav kav 18:15 17:10 07/05/2018 17:10 Discharged to Home. Impression: Crohn's disease [regional aj1 enteritis]. Condition is Stable. Forms are Medication Reconciliation Form, Thank You Letter, Antibiotic Education, Prescription Opioid Use. Follow up: Private Physician; When: 5 - 6 days; Reason: Recheck today's complaints, Continuance of care, Re-evaluation by your physician. Problem is chronic. Symptoms have improved. kav
[2018-07-05 19:45] VITALS: TEMP 98
[2018-07-05 19:47] VITALS: O2SAT 97
[2018-07-05 19:48] VITALS: BP 127/82
== END 2018-07-05 18:15 | disposition home or self-care (01) ==
LOC: ER 13:51
DX: K50.90 Crohn's disease, unspecified, without complications (principal); E03.9 Hypothyroidism, unspecified; G40.909 Epilepsy, unspecified, not intractable, without status epilepticus; F31.9 Bipolar disorder, unspecified; Z88.1 Allergy status to other antibiotic agents; Z88.8 Allergy status to other drugs, medicaments and biological substances
CPT/HCPCS: 85025; 80048; 36415; 80076; 83690; 99284; J3360; J2270 ×2; J7030; J2405; J2920

== ENCOUNTER 2018-07-05 22:38 | Emergency (ER) | payer OTHER ==
--- OUTSIDE RECORDS SUMMARY | 2018-07-05 22:41 | XMS REPORT ---
:1970 [facility] [address] [place] [address] [address] [place] [address] Care Team Providers Name Role Phone DR [...] Department ID 2016-11-04 Inpatient C NARESH CASH [facility] [id number] 09:30:00 EDGARD 2016-07-15 2016-07-19 Inpatient 1 [facility] [id number] 18:47:00 10:30:00 BLAKE 2013-11-19 2013-11-19 Emergency E MOOK [facility] [id number] 10:08:00 12:55:00 RADHA Results Test Description Test Time Test Comments Text Results Atomic Results Result Comments CT ABDOMEN/PELVIS WITH 2016-07-26 14:26:[address] [id number] IMAGING REPORTPatient Name: Anne DEL TOROte of Service: [id number]: 45 Sex: F Order #: [id number] Room: ERSDOB: 1970 X-Ray Number: [id number] Record Number: [id number] Hospital Number: [id number] Physician: KISHAN MUNOZ -Ordering Physician: HERNANDEZ MONTEMAYOR [...] Syed 2016-07-26 14:23:48 CT ABDOMEN/PELVIS 2016-07-17 02:49:00 [address] IMAG[address] REPORTPatient Name: Manuel DEL TORO of Service: [id number]: 45 Sex: F Order #: [id number] Room: [facility] 2NEDOB: 1970 X-Ray Number: [id number] Record Number: [id number] Hospital Number: [id number] Physician: BLAKE ALLEN -Ordering Physician: AURORA LOWERY [...] 02:47:19 ABDOMEN 2 VIEWS 2016-07-15 12:14:[address] [id number] IMAGING REPORTPatient Name: Manuel DEL TORO of Service: [id number]: 45 Sex: F Order #: [id number] [facility] 1970 [facility] Number: [id number] Record Number: [id number] Hospital Number: [id number] Physician: Austin TEJEDA Physician: Elvis GARCIA 2 [...]
--- OUTSIDE RECORDS SUMMARY | 2018-07-05 22:41 | XMS REPORT | Clinical Summary ---
:1970 Author Organization [facility] Address [address] [place] [address] Care Team Providers Name Role Phone Eryn [...] INFLUENZA VACCINE 11/29/2017 Implants Implanted Type Area Gas Cutting Machine Operator Device Identifier Shelf Expiration Model / [...] GFR Non Af Amer >90 mL/min/1.73 m2 [facility]PART[facility] OF PATHOLOGY AND GENOMIC MEDICINE GFR Af Amer >90 mL/min/1.73 m2 [facility] DEPARTMENT OF Comment: PATHOLOGY AND GENOMIC Chronic [...] specimen Performing Organization Address City/State/Zipcode Phone Number [facility] DEPARTMENT OF PATHOLOGY [address] [place] [address] AND GENOMIC MEDICINE CBC with platelet and differential (08/22/2017 5:35 AM CDT)Only the most recent of6 resultswithin the time period is included. WBC 7.1 4.5 - 11.0 k/uL [facility] OF PATHOLOGY AND GENOMIC MEDICINE RBC 3.78 (L) 4.20 - 5.50 m/uL [facility] OF PATHOLOGY AND GENOMIC MEDICINE HGB 11.9 (L) 12.0 - 16.0 g/dL [facility] OF PATHOLOGY AND GENOMIC MEDICINE HCT 35.9 (L) 37.0 - 47.0 % [facility] OF PATHOLOGY AND GENOMIC MEDICINE MCV 95.0 82.0 - 100.0 fL [facility] OF PATHOLOGY AND GENOMIC MEDICINE MCH 31.5 27.0 - 34.0 pg [facility] OF PATHOLOGY AND GENOMIC MEDICINE MCHC 33.1 31.0 - 37.0 g/dL [facility] OF PATHOLOGY AND GENOMIC MEDICINE RDW - SD 43.0 37.0 - 55.0 fL [facility] OF PATHOLOGY AND GENOMIC MEDICINE MPV 9.3 6.9 - 11.0 fL [facility] OF PATHOLOGY AND GENOMIC MEDICINE Platelet count 230 150 - 400 K/uL [facility] OF PATHOLOGY AND GENOMIC MEDICINE Nucleated RBC 0.00 /100 WBC [facility] OF PATHOLOGY AND GENOMIC MEDICINE Neutrophils 77.2 (H) 39.0 - 69.0 % [facility] OF PATHOLOGY AND GENOMIC MEDICINE Lymphocytes 18.6 (L) 25.0 - 45.0 % [facility] OF PATHOLOGY AND GENOMIC MEDICINE Monocytes 3.8 0.0 - 10.0 % [facility] OF PATHOLOGY AND GENOMIC MEDICINE Eosinophils 0.0 0.0 - 5.0 % [facility] OF PATHOLOGY AND GENOMIC MEDICINE Basophils 0.1 0.0 - 1.0 % [facility] OF PATHOLOGY AND GENOMIC MEDICINE Immature granulocytes 0.3 0.0 - 1.0 % [facility] OF PATHOLOGY AND GENOMIC MEDICINE Specimen Blood Performing Organization Address City/[facility]/Zipcode Phone Number [facility] DEPARTMENT OF PATHOLOGY [id number] [place] [address]. [place] [address] AND [facility] Magnesium level (08/22/2017 5:35 AM CDT)Only the most recent of3 resultswithin the time period is included. Magnesium 1.8 1.6 - 2.6 mg/dL [facility] OF PATHOLOGY AND GENOMIC MEDICINE Specimen Plasma specimen Performing Organization Address [facility] Phone Number [facility] OF PATHOLOGY [address] [place] [address]. [place] [address] AND [employer] Comprehensive metabolic panel (08/22/2017 5:35 AM CDT)Only the most recent of4 resultswithin the time period is included. Sodium 141 135 - 148 mEq/L [facility] OF PATHOLOGY AND GENOMIC MEDICINE Potassium 4.2 3.5 - 5.0 mEq/L [facility] OF PATHOLOGY AND GENOMIC MEDICINE Chloride 101 98 - 112 mEq/L [facility] OF PATHOLOGY AND GENOMIC MEDICINE CO2 26 24 - 31 mEq/L [facility] OF PATHOLOGY AND GENOMIC MEDICINE Anion gap 14 7 - 15 mEq/L [facility] DEPARTMENT OF Comment: PATHOLOGY AND GENOMIC Starting from July , anion gap calculation MEDICINE no longer incorporates potassium. Please note the change. BUN 8 6 - 20 mg/dL [facility] OF PATHOLOGY AND GENOMIC MEDICINE Creatinine 0.6 0.5 - 0.9 mg/dL [facility] OF PATHOLOGY AND GENOMIC MEDICINE Glucose 119 (H) 65 - 99 mg/dL [facility] OF PATHOLOGY AND GENOMIC MEDICINE Calcium 8.9 8.3 - 10.2 mg/dL [facility] OF PATHOLOGY AND GENOMIC MEDICINE Protein 6.2 (L) 6.3 - 8.3 g/dL [facility] OF PATHOLOGY AND GENOMIC MEDICINE Albumin 3.6 3.5 - 5.0 g/dL [facility] OF PATHOLOGY AND GENOMIC MEDICINE A/G ratio 1.4 0.7 - 3.8 [facility] OF PATHOLOGY AND GENOMIC MEDICINE Alkaline phosphatase 63 35 - 104 U/L [facility]MENT OF PATHOLOGY AND GENOMIC MEDICINE AST 22 10 - 35 U/L [facility] OF PATHOLOGY AND GENOMIC MEDICINE ALT 44 5 - 50 U/L [facility]MENT OF PATHOLOGY AND GENOMIC MEDICINE Total bilirubin <0.2 0.2 - 1.2 mg/dL [facility] DE[facility]MENT OF PATHOLOGY AND GENOMIC MEDICINE Specimen Plasma specimen Performing Organization Address [facility]ode Phone Number [facility] DEPARTMENT OF PATHOLOGY [address] [place] [address] AND [facility] Sedimentation rate (08/21/2017 4:10 AM CDT)Only the most recent of2 resultswithin the time period is included. Sedimentation rate 21 (H) 0 - 20 mm/hr [facility] OF PATHOLOGY AND GENOMIC MEDICINE Specimen Blood Performing Organization Address [facility]os[facility] Phone Number [facility] DEPARTMENT OF PATHOLOGY [address] [place] [address] AND [facility] CRP high sensitivity (08/21/2017 4:10 AM CDT) CRP, high sensitivity 0.47 mg/L [facility] DEPARTMENT OF Comment: PATHOLOGY AND [facility] Please note this test is different [...] Specimen Plasma specimen Performing Organization Address [facility]osd Phone Number [facility] DEPARTMENT OF PATHOLOGY AND [address] [place] [id number] [place] [address] Basic metabolic panel (08/21/2017 4:10 AM CDT)Only the most recent of4 resultswithin the time period is included. Sodium 143 135 - 148 mEq/L [facility] OF PATHOLOGY AND GENOMIC MEDICINE Potassium 3.8 3.5 - 5.0 mEq/L [facility]MENT OF PATHOLOGY AND GENOMIC MEDICINE Chloride 106 98 - 112 mEq/L [facility] DE[facility]MENT OF PATHOLOGY AND GENOMIC MEDICINE CO2 26 24 - 31 mEq/L [facility] DE[facility]MENT OF PATHOLOGY AND GENOMIC MEDICINE Anion gap 11 7 - 15 mEq/L [facility] DEPARTMENT OF Comment: PATHOLOGY AND GENOMIC Starting from July , anion gap calculation MEDICINE no longer incorporates potassium. Please note the change. BUN <4 (L) 6 - 20 mg/dL [facility] DEPARTMENT OF PATHOLOGY AND GENOMIC MEDICINE Creatinine 0.6 0.5 - 0.9 mg/dL [facility] DEPARTMENT OF PATHOLOGY AND GENOMIC MEDICINE Glucose 105 (H) 65 - 99 mg/dL [facility]MENT OF PATHOLOGY AND GENOMIC MEDICINE Calcium 9.1 8.3 - 10.2 mg/dL [facility] DEPARTMENT OF PATHOLOGY AND GENOMIC MEDICINE Specimen Plasma specimen Performing Organization Address City/[facility]/Zipcode Phone Number [facility] DEPARTMENT OF PATHOLOGY [address] [place] [address] AND [facility] Occult blood, stool (08/17/2017 9:30 AM CDT) Occult blood, stool Negative for occult blood. [facility] DEPARTMENT OF Comment: PATHOLOGY AND GENOMIC Specimen Information MEDICINE Specimen Source: Stool Specimen Site: Nonpreserved Specimen Stool - Nonpreserved Performing Organization Address [facility]ode Phone Number [facility] DEPARTMENT OF PATHOLOGY [address] [place] [address] AND [facility] XR Abdomen 1 Vw (08/16/2017 12:25 PM CDT) Narrative Performed At EXAMINATION:XR ABDOMEN 1 VW [facility] CLINICAL HISTORY:Bowel obstruction COMPARISON:None. IMPRESSION: Loops of dilated small bowel compatible with an ileus versus partial small bowel obstruction A spinal stimulator pump projects over the right lower quadrant The gallbladder has been removed Bony structures are within normal limits [id number] Procedure Note Interface, Radiology Results Incoming - 08/16/2017 1:04 PM CDT EXAMINATION: XR ABDOMEN 1 VW CLINICAL HISTORY: Bowel obstruction COMPARISON: None. IMPRESSION: Loops of dilated small bowel compatible with an ileus versus partial small bowel obstruction A spinal stimulator pump projects over the right lower quadrant The gallbladder has been removed Bony structures are within normal limits [id number] Performing Organization Address City/[facility]/Zipcode Phone Number [facility] [address] [place] [address] Gastrointestinal panel (08/15/2017 3:40 AM CDT) Gastrointestinal panel Negative for all pathogens tested: [facility] DEPARTMENT OF Negative for Salmonella PATHOLOGY AND [...] Stool - Nonpreserved Performing Organization Address [facility] Phone Number [facility] DEPARTMENT OF PATHOLOGY AND [address] [place], [place] [phone] [employer] MEDICINE C difficile toxin (07/19/2017 7:50 PM CDT) Clostridium difficile No Clostridium difficle toxin present [facility] DEPARTMENT OF toxin Comment: PATHOLOGY AND GENOMIC Specimen Information MEDICINE Specimen Source: Stool Specimen Site: Nonpreserved Specimen Stool - Nonpreserved Performing Organization Address [facility] Phone Number [facility] DEPARTMENT OF PATHOLOGY AND [address] [place] [phone] GENOMIC MEDICINE C-reactive protein (07/19/2017 10:08 AM CDT) CRP <0.30 0.00 - 0.50 mg/dL [facility] DEPARTMENT OF PATHOLOGY AND GENOMIC MEDICINE Specimen Plasma specimen Performing Organization Address [facility] Phone Number [facility] DEPARTMENT OF PATHOLOGY AND [address] [place] [phone] GENOMIC MEDICINE after 07/04/2017 Insurance Payer Benefit Plan / Group Subscriber ID Type Phone Address MEDICARE MEDICARE PART A AND B xxxxxxxxxx Medicare [place], [place] MEDICAID MEDICAID xxxxxxxxx Medicaid
[2018-07-06] MEDS ORDERED: MORPHINE 4 MG/ML SYR ONE ×2 (03:44→06:00)
[2018-07-06] MEDS ORDERED: NA CHLORIDE 0.9% 1,000 ML ONE (03:44)
--- NOTE | 2018-07-06 04:37 | ER ---
Nurse's Notes [facility] Name: Angela Rodriguez Age: 47 yrs Sex: Female : 1970 Arrival Date: 07/05/2018 Time: 22:39 Bed 20 Private MD: Diagnosis: Generalized abdominal pain;Crohn's disease of small intestine with intestinal obstruction Presentation: 07/05 22:42 Presenting complaint: Patient states: seen here earlier today for Crohns' flare up, tl3 pain has gotten worse. Transition of care: patient was not received from another setting of care. Onset of symptoms was July 05, 2018. Risk Assessment: Do you want to hurt yourself or someone else? Patient reports no desire to harm self or others. Initial Sepsis Screen: Does the patient meet any 2 criteria? No. Patient's initial sepsis screen is negative. Does the patient have a suspected source of infection? No. Patient's initial sepsis screen is negative. Care prior to arrival: Medication(s) given:. 22:42 Method Of Arrival: Ambulatory tl3 22:42 Acuity: LIZZY 3 tl3 Triage Assessment: 22:45 General: Appears uncomfortable, Behavior is cooperative. Pain: Complains of pain in tl3 abdomen. GI: Reports lower abdominal pain, upper abdominal pain. 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 - Social history:: Smoking status: Patient uses tobacco products, smokes one-half pack cigarettes per day. - Ebola Screening: : No symptoms or risks identified at this time. Screenin/08 00:50 Abuse screen: Denies threats or abuse. Denies injuries from another. Nutritional ed1 screening: No deficits noted. Tuberculosis screening: No symptoms or risk factors identified. Fall Risk None identified. Assessment: 00:50 General: Appears uncomfortable, Behavior is calm, cooperative. Pain: Complains of pain ed1 in abdomen Pain currently is 10 out of 10 on a pain scale. Quality of pain is described as burning, aching, Pain began 1 day ago. Is continuous. Neuro: Level of Consciousness is awake, alert, obeys commands, Oriented to person, place, time, situation. Cardiovascular: Denies chest pain, Heart tones S1 S2 present. Respiratory: Airway is patent Respiratory effort is even, unlabored, Respiratory pattern is regular, symmetrical, Breath sounds are clear bilaterally. GI: Abdomen is non-distended, Bowel sounds present X 4 quads. Abd is soft X 4 quads Abdomen is tender to palpation in right upper quadrant and left upper quadrant Reports lower abdominal pain, upper abdominal pain, nausea. : No signs and/or symptoms were reported regarding the genitourinary system. EENT: Oral mucosa is moist. Derm: Skin is intact, is healthy with good turgor, Skin is dry, Skin is normal, Skin temperature is warm. Musculoskeletal: Circulation, motion, and sensation intact. Range of motion: intact in all extremities. 04:08 Reassessment: Patient appears in no apparent distress at this time. Patient and/or ed1 family updated on plan of care and expected duration. Pain level reassessed. Patient is alert, oriented x 3, equal unlabored respirations, skin warm/dry/pink. Pt states "That pain medication really helped." Patient states feeling better. Patient states symptoms have improved. 05:33 Reassessment: Patient appears in no apparent distress at this time. Patient and/or ed1 family updated on plan of care and expected duration. Pain level reassessed. Patient is alert, oriented x 3, equal unlabored respirations, skin warm/dry/pink. Report called to Tara Gee RN at [facility] Patient states feeling better. Patient states symptoms have improved. Vital Signs: 07/05 22:45 BP 128 / 96; Pulse 87; Resp 18; Temp 98.6(O); Pulse Ox 97% ; Weight 61.23 kg; Height 5 tl3 ft. 2 in. (157.48 cm); 07/06 02:09 BP 132 / 53; Pulse 87; Resp 16; Pulse Ox 99% on R/A; mt 04:08 BP 143 / 90; Pulse 74; Resp 16; Temp 98.2(O); Pulse Ox 93% on R/A; Pain 4/10; ed1 03/ 22:45 Body Mass Index 24.69 (61.23 kg, 157.48 cm) tl3 ED Course: 03 22:39 Patient arrived in ED. am2 22:44 Triage completed. tl3 22:45 Arm band placed on right wrist. tl3 03/08 00:17 Es Martínez, RN is Primary Nurse. ed1 00:19 Anay Olea FNP-C is PHCP. snw 00:19 Rosendo Magaña MD is Attending Physician. snw 00:37 Inserted saline lock: 22 gauge in right forearm, using aseptic technique. mt 00:[address] Scan. ed1 00:50 Patient has correct armband on for positive identification. Placed in gown. Bed in low ed1 position. Call light in reach. 01:17 Patient requests pain medication. ed1 01:38 CT Abd/Pelvis - W/Contrast In Process Unspecified. EDMS 01:39 CT completed. Patient tolerated procedure well. Patient moved to CT via wheelchair. eh Patient moved back from CT. 05:54 No provider procedures requiring assistance completed. Patient transferred, IV remains ed1 in place. intact, No redness/swelling at site. Administered Medications: 03:38 Drug: morphine 2 mg Route: IVP; Site: right forearm; ed1 04:47 Follow up: Response: No adverse reaction; Pain is decreased ed1 03:39 Drug: NS 0.9% 1000 ml Route: IV; Rate: 125 ml/hr; Site: right forearm; ed1 05:53 Follow up: IV Status: Infusion continued upon transfer ed1 05:52 Drug: morphine 2 mg Route: IVP; Site: right forearm; ed1 05:53 Follow up: Response: Medication administered at discharge. ed1 Outcome: 04:37 ER care complete, transfer ordered by . ma2 05:54 Transferred by ground EMS EMS. to [facility], Transfer form ed1 completed. X-rays sent w/ patient. 05:54 Condition: stable 05:54 Discharge instructions given to patient, Instructed on the need for transfer, Demonstrated understanding of instructions. 06:04 Patient left the ED. ag4 Signatures: Dispatcher [employer] EDMS Anay Olea, ROAD FREIGHT FIRER-C ROAD FREIGHT FIRER-Csnw Robert Espinoza Erika, RN RN ed1 Cally Villegas am2 Leeanne Gutiérrez mt, Mohammad, MD MD ma2 Samira Farah RN RN tl3 Geovani, Turner ag4
--- NOTE | 2018-07-06 04:38 | EDPHYS ---
Physician Documentation [facility] Name: Angela Rodriguez Age: 47 yrs Sex: Female : 1970 Arrival Date: 07/05/2018 Time: 22:39 Bed 20 Private MD: ED Physician Rosendo Magaña HPI: 07/06 00:27 This 47 yrs old Female presents to ER via Ambulatory with complaints of snw Abdominal Pain - hx of chrons, Fever. 00:27 The patient presents with abdominal pain in the left lower quadrant, that is diffuse. snw Onset: The symptoms/episode began/occurred acutely, and became worse today. The symptoms do not radiate. Associated signs and symptoms: Pertinent positives: nausea and vomiting. The symptoms are described as constant. Severity of pain: At its worst the pain was severe. The patient has experienced similar episodes in the past, chronically. The patient has been recently seen by a physician: The patient has been recently seen at the [facility] Emergency Department, today, for similar complaints labs were performed. 03:24 Pt was discharged from this facility at 1830. Labs and vital signs were within normal snw limits. She did not obtain a CT as pt was just CT'd one month ago. Pt tells me she has not had this type of pain and she feels her belly is going to blow up. CT reveals possible partial bowel obstruction at site of anastomosis. Pt tells me she had surgery originally in [place] 11yr ago. Her PCP is Dr. Lund at [facility], her next appt is next week. Dr. Mora is her GI Physician and she has an appt for an endoscopy and colonoscopy on 07/16 and 07/17 respectively.. MANAGER GAME: 07/05 22:45 LMP N/A - Hysterectomy tl3 Historical: - Allergies: 22:45 Ciprofloxacin; tl3 22:45 Phenergan; tl3 - Home Meds: 22:45 DILAUDID IN PAIN PUMP [Active]; Klonopin Oral [Active]; Lialda 1.2 gram Oral grps 2 tl3 tabs once daily [Active]; pantoprazole 40 mg intravenous solr [Active]; Stelara subcutaneous [Active]; - PMHx: 22:45 Bipolar disorder; Chronic pain; Crohn's; Endometrosis; Hypothyroidism; Seizures; tl3 - Immunization history:: Adult Immunizations up to date. - Social history:: Smoking status: Patient uses tobacco products, smokes one-half pack cigarettes per day. - Ebola Screening: : No symptoms or risks identified at this time. ROS: 07/06 00:27 Constitutional: Negative for fever, chills, and weight loss, Eyes: Negative for injury, snw pain, redness, and discharge, ENT: Negative for injury, pain, and discharge, Neck: Negative for injury, pain, and swelling, Cardiovascular: Negative for chest pain, palpitations, and edema, Respiratory: Negative for shortness of breath, cough, wheezing, and pleuritic chest pain, Back: Negative for injury and pain, : Negative for injury, bleeding, discharge, and swelling, MS/Extremity: Negative for injury and deformity, Skin: Negative for injury, rash, and discoloration. Abdomen/GI: Positive for abdominal pain, nausea and vomiting. Exam: 00:26 Constitutional: This is a well developed, well nourished patient who is awake, alert, snw and in no acute distress. Head/Face: Normocephalic, atraumatic. Eyes: Pupils equal round and reactive to light, extra-ocular motions intact. Lids and lashes normal. Conjunctiva and sclera are non-icteric and not injected. Cornea within normal limits. Periorbital areas with no swelling, redness, or edema. ENT: Nares patent. No nasal discharge, no septal abnormalities noted. Tympanic membranes are normal and external auditory canals are clear. Oropharynx with no redness, swelling, or masses, exudates, or evidence of obstruction, uvula midline. Mucous membranes moist. Neck: Trachea midline, no thyromegaly or masses palpated, and no cervical lymphadenopathy. Supple, full range of motion without nuchal rigidity, or vertebral point tenderness. No Meningismus. Chest/axilla: Normal chest wall appearance and motion. Nontender with no deformity. No lesions are appreciated. Cardiovascular: Regular rate and rhythm with a normal S1 and S2. No gallops, murmurs, or rubs. Normal PMI, no JVD. No pulse deficits. Respiratory: Lungs have equal breath sounds bilaterally, clear to auscultation and percussion. No rales, rhonchi or wheezes noted. No increased work of breathing, no retractions or nasal flaring. Back: No spinal tenderness. No costovertebral tenderness. Full range of motion. Skin: Warm, dry with normal turgor. Normal color with no rashes, no lesions, and no evidence of cellulitis. MS/ Extremity: Pulses equal, no cyanosis. Neurovascular intact. Full, normal range of motion. Neuro: Awake and alert, GCS 15, oriented to person, place, time, and situation. Cranial nerves II-XII grossly intact. Motor strength 5/5 in all extremities. Sensory grossly intact. Cerebellar exam normal. Normal gait. Psych: Awake, alert, with orientation to person, place and time. Behavior, mood, and affect are within normal limits. 00:26 Abdomen/GI: Inspection: abdomen appears normal, Bowel sounds: tinkling, Palpation: moderate abdominal tenderness, in the left lower quadrant. Vital Signs: 07/05 22:45 BP 128 / 96; Pulse 87; Resp 18; Temp 98.6(O); Pulse Ox 97% ; Weight 61.23 kg; Height 5 tl3 ft. 2 in. (157.48 cm); 07/06 02:09 BP 132 / 53; Pulse 87; Resp 16; Pulse Ox 99% on R/A; mt 04:08 BP 143 / 90; Pulse 74; Resp 16; Temp 98.2(O); Pulse Ox 93% on R/A; Pain 4/10; ed1 07/05 22:45 Body Mass Index 24.69 (61.23 kg, 157.48 cm) tl3 MDM: 00:22 Patient medically screened. snw 00:55 Data reviewed: vital signs, nurses notes. Data interpreted: Pulse oximetry: on room air snw is 97 %. Interpretation: normal. Counseling: I had a detailed discussion with the patient and/or guardian regarding: the historical points, exam findings, and any diagnostic results supporting the discharge/admit diagnosis, to CT via . 03:24 Physician consultation: Kraig Vallecillo MD was called at 03:15, was contacted at 03:15, snw regarding admission, to the medical/surgical unit. would like consultation with Dr. Dr. Bower - Dr. Bower contacted per Dr. Neil, recommends transfer as he is not colo-rectal surgeon. Plan to attempt transfer discussed with Pt and family member. She agrees to transfer. . 03:31 Transition of care: After a detail discussion of the patient's case, care is snw transferred to Rosendo Magaña MD. 04:32 ED course: patient has intractable abd pain 2nd visit to er today.. needs admission ma2 observation iv hydration , ct abd showing ?anastomosis partial obstruction w airfluid level.. discussed with dr. Bower who recommends transfer to higher level of care for colorectal surgeon this service not available in this hospital . 07/06 00:26 Order name: CT Abd/Pelvis - W/Contrast snw 07/06 03:31 Order name: NPO; Complete Time: 03:38 snw Administered Medications: 03:38 Drug: morphine 2 mg Route: IVP; Site: right forearm; ed1 04:47 Follow up: Response: No adverse reaction; Pain is decreased ed1 03:39 Drug: NS 0.9% 1000 ml Route: IV; Rate: 125 ml/hr; Site: right forearm; ed1 05:53 Follow up: IV Status: Infusion continued upon transfer ed1 05:52 Drug: morphine 2 mg Route: IVP; Site: right forearm; ed1 05:53 Follow up: Response: Medication administered at discharge. ed1 Disposition: 04:37 Co-signature as Attending Physician, Rosendo Magaña MD. ma2 Disposition: 07/06/18 04:37 Transfer ordered to [facility]. Diagnosis are Generalized abdominal pain, Crohn's disease of small intestine with intestinal obstruction. - Reason for transfer: Higher level of care. - Accepting physician is accepted by dr. Tiago stroud and Dr. Corcoran. - Condition is Stable. - Problem is new. - Symptoms have improved. Signatures: Dispatcher [employer] EDMS Anay Olea, DUST MOP MAKER-C DUST MOP MAKER-Csnw Es Martínez RN RN ed1 Rosendo Magaña MD MD ma2 Samira Farah RN RN tl3 Turner Olivo ag4 Corrections: (The following items were deleted from the chart) 06:04 04:37 07/06/2018 04:37 Transfer ordered to [facility]. Diagnosis is ag4 Generalized abdominal pain; Crohn's disease of small intestine with intestinal obstruction. Reason for transfer: Higher level of care. Accepting physician is accepted by dr. Ordoñez surgeon and Dr. Corcoran. Condition is Stable. Problem is new. Symptoms have improved. ma2
[2018-07-06 06:19] VITALS: BP 143/90; TEMP 98.2; O2SAT 93
--- NOTE | 2018-07-06 11:32 | RAD REPORT ---
EXAM DESCRIPTION: Abdomen and Pelvis With Intravenous Contrast CLINICAL HISTORY: The patient is 47 years old and is Female; ABD PAIN TECHNIQUE: Axial computed tomography images of the abdomen and pelvis with intravenous contrast. S agittal and coronal reformatted images were created and reviewed. This CT exam was performed using one or more of the following dose reduction techniques: automated exposure control, adjustment of t he mA and/or kV according to patient size, and/or use of iterative reconstruction technique. COMPARISON: CT abdomen and pelvis dated June 13, 2018. FINDINGS: LUNG BASES: Lung bases are clear. Minimal dependent subsegmental atelectasis. HEART: Visualized heart is unremarkable. ABDOMEN: LIVER: Unremarkable. No mass. GALLBLADDER AND BILE DUCTS: Prior cholecystectomy with intrahepatic ductal dilatation and prominen ce of the common bile duct. PANCREAS: Unremarkable. No mass. No ductal dilation. SPLEEN: Unremarkable. No splenomegaly. ADRENALS: Unremarkable. No mass. KIDNEYS AND URETERS: Bilateral renal cysts measuring up to 3.6 cm on the left and 1.2 cm and the r ight. No hydronephrosis. Symmetrical contrast excretion is noted. STOMACH AND BOWEL: Right lower quadrant postsurgical changes. There is regional distention of the bowel with air-fluid levels. No wall thickening or surrounding stranding. Intraluminal hyperdensity i s also noted (series 4, image 42), likely hyperdense medication. PELVIS: APPENDIX: No findings to suggest acute appendicitis. BLADDER: Unremarkable. No mass. REPRODUCTIVE: Unremarkable as visualized. ABDOMEN and PELVIS: INTRAPERITONEAL SPACE: Unremarkable. No free air. No significant fluid collection. BONES/JOINTS: No acute fracture. No dislocation. SOFT TISSUES: Right gluteal injection granuloma. VASCULATURE: Unremarkable. No abdominal aortic aneurysm. LYMPH NODES: Unremarkable. No enlarged lymph nodes. TUBES, LINES AND DEVICES: Neural stimulator is seen in the soft tissue of the right lower abdomen and entering the right epidural space terminating posteriorly at the thoracolumbar junction. IMPRESSION: 1. Postsurgical changes of the ileocecal junction with regional distention, air-fluid level and fecalization. Finding could represent partial anastomotic obstruction. No wall thickening o r fat stranding. 2. Prior cholecystectomy with intra and extrahepatic ductal dilatation. 3. Bilateral renal cysts measuring 3.6 images on the left. 4. Neural stimulator as detailed above. 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 The interpreting radiologist is f ully responsible for the content of the report.
== END 2018-07-06 06:04 | disposition short-term general hospital (02) ==
LOC: ER 22:38
DX: K50.012 Crohn's disease of small intestine with intestinal obstruction (principal); F17.210 Nicotine dependence, cigarettes, uncomplicated; E03.9 Hypothyroidism, unspecified; F31.9 Bipolar disorder, unspecified; G40.909 Epilepsy, unspecified, not intractable, without status epilepticus; Z88.1 Allergy status to other antibiotic agents; Z88.8 Allergy status to other drugs, medicaments and biological substances
CPT/HCPCS: 96361; 74177; 96374; 99285; Q9967; J7030

== ENCOUNTER 2018-07-14 15:39 | Emergency (ER) | payer OTHER ==
--- OUTSIDE RECORDS SUMMARY | 2018-07-14 15:42 | XMS REPORT | Clinical Summary ---
:1970 Author Organization [facility] Address [address] [place] [address] Care Team Providers Name Role Phone Eryn [...] Raz Mchugh MD infectious (Primary Dx) after 07/13/2017 Social History Tobacco Use Types Packs/Day Years [...] INFLUENZA VACCINE 11/29/2017 Implants Implanted Type Area Director Statistical Programming Device Identifier Shelf Expiration Model / Date [...] procedure are in the results section. after 07/13/2017 Results Estimated GFR (08/22/2017 5:35 AM CDT)Only the most recent of8 resultswithin the time period is included. GFR Non Af Amer >90 mL/min/1.73 m2 [facility] DEPARTMENT OF PATHOLOGY AND GENOMIC MEDICINE GFR Af Amer >90 mL/min/1.73 m2 [facility] DEPARTMENT OF Comment: PATHOLOGY AND GENOMIC Chronic [...] specimen Performing Organization Address City/State/Zipcode Phone Number [facility] DEPARTMENT OF PATHOLOGY [address] [place] [address] AND GENOMIC MEDICINE CBC with platelet and differential (08/22/2017 5:35 AM CDT)Only the most recent of6 resultswithin the time period is included. WBC 7.1 4.5 - 11.0 k/uL [facility] DEPARTMENT OF PATHOLOGY AND GENOMIC MEDICINE RBC 3.78 (L) 4.20 - 5.50 m/uL [facility] DEPARTMENT OF PATHOLOGY AND GENOMIC MEDICINE HGB 11.9 (L) 12.0 - 16.0 g/dL [facility] DEPARTMENT OF PATHOLOGY AND GENOMIC MEDICINE HCT 35.9 (L) 37.0 - 47.0 % [facility] DEPARTMENT OF PATHOLOGY AND GENOMIC MEDICINE MCV 95.0 82.0 - 100.0 fL [facility] DEPARTMENT OF PATHOLOGY AND GENOMIC MEDICINE MCH 31.5 27.0 - 34.0 pg [facility] DEPARTMENT OF PATHOLOGY AND GENOMIC MEDICINE MCHC 33.1 31.0 - 37.0 g/dL [facility] DEPARTMENT OF PATHOLOGY AND GENOMIC MEDICINE RDW - SD 43.0 37.0 - 55.0 fL [facility] DEPARTMENT OF PATHOLOGY AND GENOMIC MEDICINE MPV 9.3 6.9 - 11.0 fL [facility] DEPARTMENT OF PATHOLOGY AND GENOMIC MEDICINE Platelet count 230 150 - 400 K/uL [facility] DEPARTMENT OF PATHOLOGY AND GENOMIC MEDICINE Nucleated RBC 0.00 /100 WBC [facility] DEPARTMENT OF PATHOLOGY AND GENOMIC MEDICINE Neutrophils 77.2 (H) 39.0 - 69.0 % [facility] DEPARTMENT OF PATHOLOGY AND GENOMIC MEDICINE Lymphocytes 18.6 (L) 25.0 - 45.0 % [facility] DEPARTMENT OF PATHOLOGY AND GENOMIC MEDICINE Monocytes 3.8 0.0 - 10.0 % [facility] DEPARTMENT OF PATHOLOGY AND GENOMIC MEDICINE Eosinophils 0.0 0.0 - 5.0 % [facility] DEPARTMENT OF PATHOLOGY AND GENOMIC MEDICINE Basophils 0.1 0.0 - 1.0 % [facility] DEPARTMENT OF PATHOLOGY AND GENOMIC MEDICINE Immature granulocytes 0.3 0.0 - 1.0 % [facility] DEPARTMENT OF PATHOLOGY AND GENOMIC MEDICINE Specimen Blood Performing Organization Address City/[facility]/Zipcode Phone Number [facility] DEPARTMENT OF PATHOLOGY [id number] [place] [address]. [place] [address] AND [facility] Magnesium level (08/22/2017 5:35 AM CDT)Only the most recent of3 resultswithin the time period is included. Magnesium 1.8 1.6 - 2.6 mg/dL [facility] DEPARTMENT OF PATHOLOGY AND GENOMIC MEDICINE Specimen Plasma specimen Performing Organization Address [facility] Cent[facility]ode Phone Number [facility] DEPARTMENT OF PATHOLOGY [address] [place] [address]. [place] [address] AND [facility] Comprehensive metabolic panel (08/22/2017 5:35 AM CDT)Only the most recent of4 resultswithin the time period is included. Sodium 141 135 - 148 mEq/L [facility] DEPARTMENT OF PATHOLOGY AND GENOMIC MEDICINE Potassium 4.2 3.5 - 5.0 mEq/L [facility] DEPARTMENT OF PATHOLOGY AND GENOMIC MEDICINE Chloride 101 98 - 112 mEq/L [facility] DEPARTMENT OF PATHOLOGY AND GENOMIC MEDICINE CO2 26 24 - 31 mEq/L [facility] DEPARTMENT OF PATHOLOGY AND GENOMIC MEDICINE Anion gap 14 7 - 15 mEq/L [facility] DEPARTMENT OF Comment: PATHOLOGY AND GENOMIC Starting from July , anion gap calculation MEDICINE no longer incorporates potassium. Please note the change. BUN 8 6 - 20 mg/dL [facility] DEPARTMENT OF PATHOLOGY AND GENOMIC MEDICINE Creatinine 0.6 0.5 - 0.9 mg/dL [facility] DEPARTMENT OF PATHOLOGY AND GENOMIC MEDICINE Glucose 119 (H) 65 - 99 mg/dL [facility] DEPARTMENT OF PATHOLOGY AND GENOMIC MEDICINE Calcium 8.9 8.3 - 10.2 mg/dL [facility] DEPARTMENT OF PATHOLOGY AND GENOMIC MEDICINE Protein 6.2 (L) 6.3 - 8.3 g/dL [facility] DEPARTMENT OF PATHOLOGY AND GENOMIC MEDICINE Albumin 3.6 3.5 - 5.0 g/dL [facility] DEPARTMENT OF PATHOLOGY AND GENOMIC MEDICINE A/G ratio 1.4 0.7 - 3.8 [facility] DEPARTMENT OF PATHOLOGY AND GENOMIC MEDICINE Alkaline phosphatase 63 35 - 104 U/L [facility] DEPARTMENT OF PATHOLOGY AND GENOMIC MEDICINE AST 22 10 - 35 U/L [facility] DEPARTMENT OF PATHOLOGY AND GENOMIC MEDICINE ALT 44 5 - 50 U/L [facility] DEPARTMENT OF PATHOLOGY AND GENOMIC MEDICINE Total bilirubin <0.2 0.2 - 1.2 mg/dL [facility] DEPARTMENT OF PATHOLOGY AND GENOMIC MEDICINE Specimen Plasma specimen Performing Organization Address [facility] Centercode Phone Number [facility] DEPARTMENT OF PATHOLOGY [address] [place] [address] AND [facility] Sedimentation rate (08/21/2017 4:10 AM CDT)Only the most recent of2 resultswithin the time period is included. Sedimentation rate 21 (H) 0 - 20 mm/hr [facility] DEPARTMENT OF PATHOLOGY AND GENOMIC MEDICINE Specimen Blood Performing Organization Address [facility] Centercoia Phone Number [facility] DEPARTMENT OF PATHOLOGY [address] [place] [address] AND [facility] CRP high sensitivity (08/21/2017 4:10 AM CDT) CRP, high sensitivity 0.47 mg/L [facility] DEPARTMENT OF Comment: PATHOLOGY AND [facility] Please note this test is different [...] infection Specimen Plasma specimen Performing Organization Address [facility] Centercoia Phone Number [facility] DEPARTMENT OF PATHOLOGY AND [address] [place] [phone] [place] [address] Basic metabolic panel (08/21/2017 4:10 AM CDT)Only the most recent of4 resultswithin the time period is included. Sodium 143 135 - 148 mEq/L [facility] DEPARTMENT OF PATHOLOGY AND GENOMIC MEDICINE Potassium 3.8 3.5 - 5.0 mEq/L [facility] DEPARTMENT OF PATHOLOGY AND GENOMIC MEDICINE Chloride 106 98 - 112 mEq/L [facility] DEPARTMENT OF PATHOLOGY AND GENOMIC MEDICINE CO2 26 24 - 31 mEq/L [facility] DEPARTMENT OF PATHOLOGY AND GENOMIC MEDICINE Anion gap 11 7 - 15 mEq/L [facility] DEPARTMENT OF Comment: PATHOLOGY AND GENOMIC Starting from July , anion gap calculation MEDICINE no longer incorporates potassium. Please note the change. BUN <4 (L) 6 - 20 mg/dL [facility] DEPARTMENT OF PATHOLOGY AND GENOMIC MEDICINE Creatinine 0.6 0.5 - 0.9 mg/dL [facility] DEPARTMENT OF PATHOLOGY AND GENOMIC MEDICINE Glucose 105 (H) 65 - 99 mg/dL [facility] DEPARTMENT OF PATHOLOGY AND GENOMIC MEDICINE Calcium 9.1 8.3 - 10.2 mg/dL [facility] DEPARTMENT OF PATHOLOGY AND GENOMIC MEDICINE Specimen Plasma specimen Performing Organization Address City/[facility]/Zipcode Phone Number [facility] DEPARTMENT OF PATHOLOGY [address] [place] [address] AND [facility] Occult blood, stool (08/17/2017 9:30 AM CDT) Occult blood, stool Negative for occult blood. [facility] DEPARTMENT OF Comment: PATHOLOGY AND GENOMIC Specimen Information MEDICINE Specimen Source: Stool Specimen Site: Nonpreserved Specimen Stool - Nonpreserved Performing Organization Address [facility] Centercode Phone Number [facility] DEPARTMENT OF PATHOLOGY [address] [place] [address] AND [facility] XR Abdomen 1 Vw (08/16/2017 12:25 PM CDT) Narrative Performed At EXAMINATION:XR ABDOMEN 1 VW [facility] CLINICAL HISTORY:Bowel obstruction COMPARISON:None. IMPRESSION: Loops of dilated small bowel compatible with an ileus versus partial small bowel obstruction A spinal stimulator pump projects over the right lower quadrant The gallbladder has been removed Bony structures are within normal limits [id number] Procedure Note Interface, Radiology Results Incoming - 08/16/2017 1:04 PM CDT EXAMINATION: XR ABDOMEN 1 VW CLINICAL HISTORY: Bowel obstruction COMPARISON: None. IMPRESSION: Loops of dilated small bowel compatible with an ileus versus partial small bowel obstruction A spinal stimulator pump projects over the right lower quadrant The gallbladder has been removed Bony structures are within normal limits [id number] Performing Organization Address City/[facility]/Zipcode Phone Number [facility] [address] [place] [address] Gastrointestinal panel (08/15/2017 3:40 AM CDT) Gastrointestinal panel Negative for all pathogens tested: [facility] DEPARTMENT OF Negative for Salmonella PATHOLOGY [...] Specimen Stool - Nonpreserved Performing Organization Address [facility] [place] Phone Number [facility] DEPARTMENT OF PATHOLOGY AND [address] [place], [place] [phone] [employer] MEDICINE C difficile toxin (07/19/2017 7:50 PM CDT) Clostridium difficile No Clostridium difficle toxin present [facility] DEPARTMENT OF toxin Comment: PATHOLOGY AND GENOMIC Specimen Information MEDICINE Specimen Source: Stool Specimen Site: Nonpreserved Specimen Stool - Nonpreserved Performing Organization Address [facility] [place] Phone Number [facility] DEPARTMENT OF PATHOLOGY AND [address] [place] [phone] GENOMIC MEDICINE C-reactive protein (07/19/2017 10:08 AM CDT) CRP <0.30 0.00 - 0.50 mg/dL [facility] DEPARTMENT OF PATHOLOGY AND GENOMIC MEDICINE Specimen Plasma specimen Performing Organization Address [facility] [place] Phone Number [facility] DEPARTMENT OF PATHOLOGY AND [address] [place] [phone] GENOMIC MEDICINE after 07/13/2017 Insurance Payer Benefit Plan / Group Subscriber ID Type Phone Address MEDICARE MEDICARE PART A AND B xxxxxxxxxx Medicare [place], [place] MEDICAID MEDICAID xxxxxxxxx Medicaid
--- OUTSIDE RECORDS SUMMARY | 2018-07-14 15:43 | XMS REPORT | Clinical Summary ---
:[address] [facility] Address [address] [place] [address] Care Team Providers Name Role Phone Elva Jones MD Primary Care Provider Allergies Active Allergy Reactions Severity Noted Date Comments Ciprofloxacin Swelling 07/06/2018 Makes tongue swell Promethazine 07/06/2018 Makes mouth/jaw twitch/jerk Medications Medication Sig Dispensed Refills Start Date End Date Status escitalopram Take 10 mg by mouth 0 Active oxalate (LEXAPRO) daily. 10 MG tabletIndications: Post Traumatic Stress Disorder pantoprazole Take 40 mg by mouth 0 Active (PROTONIX) 40 MG daily. tabletIndications: heartburn, chronic indigestion mesalamine (LIALDA) Take 2,400 mg by 0 Active 1.2 gram EC mouth daily with tabletIndications: breakfast. Crohn's disease clonazePAM Take 1 mg by mouth 3 0 Active (KLONOPIN) 1 MG (three) times daily. tabletIndications: PTSD acetaminophen Take 1,000 mg by 0 Active (TYLENOL) 500 MG mouth every 6 (six) tabletIndications: hours as needed for Pain Pain. multivitamin,tx-iro Take 1 tablet by 0 Active n-minerals Tab mouth daily. terconazole Place 1 applicator 0 Active (TERAZOL 7) 0.4 % vaginally nightly. vaginal cream STELARA 90 mg/mL INJECT 90MG 3 04/11/2018 Active Syrg SUBCUTANEOUSLY 8 WEEKS AFTER INNDUCTION DOSE THEN EVERY 8 WEEKS THEREAFTER HYDROcodone-acetami Take 1 tablet by 30 tablet 0 07/11/2018 07/21/2018 Active nophen (NORCO mouth every 6 (six) 7.5-325) 7.5-325 mg hours as needed for per tablet up to 10 days. Max Daily Amount: 4 tablets predniSONE Take 40mg daily 50 tablet 0 07/11/2018 Active (DELTASONE) 20 MG times 2 weeks and tablet then 20mg daily times 2 weeks. Further dosing per GI Dr. Huynh. Active Problems Problem Noted Date Crohn's disease 07/06/2018 SBO (small bowel obstruction) 07/06/2018 Encounters Date Type Specialty Care Team Description 07/11/2018 Anesthesia Event Gastroenterology Terri Laughlin MD 07/11/2018 Surgery Gastroenterology Lino, COLONOSCOPY,BIOPSY King Merchant MD 07/10/2018 Travel 07/06/2018 - [facility], SBO (small bowel obstruction) (HCC); 07/11/2018 Encounter Medicine Esa-Juan Crohn's disease of both small and large intestine with other complication (HCC); Donny, Smoker; Endometriosis; Mayte, Crohn's disease of small intestine with intestinal obstruction (HCC); MD Colby Other chronic pain Daxa Caballero MD Waheed, Umar, MD after 07/13/2017 Family History Medical History Relation Name Comments Cancer Maternal Grandfather Dementia Maternal Grandmother Endometriosis Maternal Grandmother Suicidality Maternal Uncle Endometriosis Mother Relation Name Status Comments Maternal Grandfather Maternal Grandmother Maternal Uncle Mother Social History Tobacco Use Types Packs/Day Years Used Date Current Every Day Smoker 0.25 40 Smokeless Tobacco: Never Used Tobacco Cessation: Ready to Quit: Yes Alcohol Use Drinks/Week oz/Week Comments No Alcohol Habits Answer Date Recorded How often do you have a drink containing alcohol? Never 07/06/2018 How many drinks containing alcohol do you have on a typical Not asked day when you are drinking? How often do you have six or more drinks on one occasion? Not asked Sex Assigned at Date Recorded Not on file Job Start 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 Last Filed Vital Signs Vital Sign Reading Time Taken Blood Pressure 156/88 07/11/2018 1:00 PM CDT Pulse 45 07/11/2018 1:00 PM CDT Temperature 36.7 C (98.1 F) 07/11/2018 1:00 PM CDT Respiratory Rate 18 07/11/2018 1:00 PM CDT Oxygen Saturation 93% 07/11/2018 1:00 PM CDT Inhaled Oxygen Concentration 21% 07/06/2018 10:00 PM CUSTOMER CONSULTING MANAGER Weight 61.5 kg (135 lb 8 oz) 07/06/2018 8:11 AM CUSTOMER CONSULTING MANAGER Height - - Body Mass Index - - Plan of Treatment Not on file Procedures Procedure Name Priority Date/Time Associated Comments Diagnosis REPORT OF PROCEDURE - 07/11/2018 9:45 ENDOSCOPY URL AM CDT TISSUE EXAM AP Routine 07/11/2018 9:24 Results for this AM CDT procedure are in the results section. COLONOSCOPY,BIOPSY 07/11/2018 9:00 Lower abdominal AM CDT pain CBC W/PLT COUNT & Routine 07/11/2018 2:51 Results for this AUTO DIFFERENTIAL AM CDT procedure are in the results section. BASIC METABOLIC PANEL Routine 07/11/2018 2:51 Results for this (7) AM CDT procedure are in the results section. CBC W/PLT COUNT & Routine 07/11/2018 2:51 Results for this AUTO DIFFERENTIAL AM CDT procedure are in the results section. CBC W/PLT COUNT & Routine 07/10/2018 5:23 Results for this AUTO DIFFERENTIAL AM CDT procedure are in the results section. BASIC METABOLIC PANEL Routine 07/10/2018 5:23 Results for this (7) AM CDT procedure are in the results section. CBC W/PLT COUNT & Routine 07/10/2018 5:23 Results for this AUTO DIFFERENTIAL AM CDT procedure are in the results section. CBC W/PLT COUNT & Routine 07/09/2018 6:25 Results for this AUTO DIFFERENTIAL AM CDT procedure are in the results section. BASIC METABOLIC PANEL Routine 07/09/2018 6:25 Results for this (7) AM CDT procedure are in the results section. CBC W/PLT COUNT & Routine 07/09/2018 6:25 Results for this AUTO DIFFERENTIAL AM CDT procedure are in the results section. CT ABDOMEN & PELVIS - MANASA 07/08/2018 6:32 Results for this ENTEROGRAPHY AM CDT procedure are in the results section. CBC W/PLT COUNT & Routine 07/08/2018 5:50 Results for this AUTO DIFFERENTIAL AM CDT procedure are in the results section. BASIC METABOLIC PANEL Routine 07/08/2018 5:50 Results for this (7) AM CDT procedure are in the results section. CBC W/PLT COUNT & Routine 07/08/2018 5:50 Results for this AUTO DIFFERENTIAL AM CDT procedure are in the results section. CBC W/PLT COUNT & Routine 07/07/2018 3:30 Results for this AUTO DIFFERENTIAL AM CUSTOMER CONSULTING MANAGER procedure are in the results section. BASIC METABOLIC PANEL Routine 07/07/2018 3:30 Results for this (7) AM CUSTOMER CONSULTING MANAGER procedure are in the results section. CBC W/PLT COUNT & Routine 07/07/2018 3:30 Results for this AUTO DIFFERENTIAL AM CUSTOMER CONSULTING MANAGER procedure are in the results section. STOOL PATH CHARGE Routine 07/06/2018 6:29 Results for this PM CUSTOMER CONSULTING MANAGER procedure are in the results section. SHIGA TOXIN SCREEN Routine 07/06/2018 6:29 Results for this PM CUSTOMER CONSULTING MANAGER procedure are in the results section. STOOL CULTURE + SHIGA Routine 07/06/2018 6:29 Results for this TOXIN PM CUSTOMER CONSULTING MANAGER procedure are in the results section. C. DIFFICILE GDH Routine 07/06/2018 6:28 Results for this TOXIN PM CUSTOMER CONSULTING MANAGER procedure are in the results section. XR CHEST 1 VIEW Routine 07/06/2018 1:20 Results for this PORTABLE/BEDSIDE PM CUSTOMER CONSULTING MANAGER procedure are in the results section. BLOOD CULTURE STAT 07/06/2018 11:14 Results for this AM CUSTOMER CONSULTING MANAGER procedure are in the results section. LACTIC ACID, VENOUS Routine 07/06/2018 11:13 Results for this AM CUSTOMER CONSULTING MANAGER procedure are in the results section. BLOOD CULTURE STAT 07/06/2018 10:50 Results for this AM CUSTOMER CONSULTING MANAGER procedure are in the results section. CBC W/PLT COUNT & Routine 07/06/2018 10:49 Results for this AUTO DIFFERENTIAL AM CUSTOMER CONSULTING MANAGER procedure are in the results section. PHOSPHORUS Routine 07/06/2018 10:49 Results for this AM CUSTOMER CONSULTING MANAGER procedure are in the results section. MAGNESIUM Routine 07/06/2018 10:49 Results for this AM CUSTOMER CONSULTING MANAGER procedure are in the results section. HEPATIC FUNCTION Routine 07/06/2018 10:49 Results for this PANEL AM CUSTOMER CONSULTING MANAGER procedure are in the results section. BASIC METABOLIC PANEL Routine 07/06/2018 10:49 Results for this (7) AM CUSTOMER CONSULTING MANAGER procedure are in the results section. CBC W/PLT COUNT & Routine 07/06/2018 10:49 Results for this AUTO DIFFERENTIAL AM CUSTOMER CONSULTING MANAGER procedure are in the results section. RAPID DRUG SCREEN, STAT 07/06/2018 10:14 Results for this URINE AM CUSTOMER CONSULTING MANAGER procedure are in the results section. URINALYSIS W/ REFLEX Routine 07/06/2018 10:14 Results for this URINE CULTURE AM CUSTOMER CONSULTING MANAGER procedure are in the results section. after 07/13/2017 Results REPORT OF PROCEDURE - ENDOSCOPY URL (07/11/2018 9:45 AM CDT) Narrative Performed At Tissue Exam (07/11/2018 9:24 AM CDT) Case Report Surgical Pathology Report Case: [id number] [facility] Authorizing Provider:King Huynh MD Collected: 07/11/2018 0924 [facility] Ordering Location: [address] Received: 07/11/2018 1421 Service Pathologist: Linda Mullen MD Specimens: A) - Large Intestine, Colon - Right/Ascending, random biopsies B) - Large Intestine, Colon - Transverse, random biopsies C) - Large Intestine, Colon - Left/Descending, random biopsies D) - Large Intestine, Colon - Sigmoid, random biopsies DIAGNOSIS A. COLON, RIGHT/ASCENDING, RANDOM, BIOPSY: [facility] - COLONIC MUCOSA WITH NO SIGNIFICANT DIAGNOSTIC ABNORMALITY [facility] (SEE MICROSCOPIC DESCRIPTION AND COMMENT) B. COLON, TRANSVERSE, RANDOM, BIOPSY: - COLONIC MUCOSA WITH NO SIGNIFICANT DIAGNOSTIC ABNORMALITY (SEE MICROSCOPIC DESCRIPTION AND COMMENT) C. COLON, LEFT/DESCENDING, RANDOM, BIOPSY: - COLONIC MUCOSA WITH NO SIGNIFICANT DIAGNOSTIC ABNORMALITY (SEE MICROSCOPIC DESCRIPTION AND COMMENT) D. COLON, SIGMOID, RANDOM, BIOPSY: - COLONIC MUCOSA WITH NO SIGNIFICANT DIAGNOSTIC ABNORMALITY (SEE MICROSCOPIC DESCRIPTION AND COMMENT) Signing Pathologist Direct Phone Line: [phone] COMMENT Patient's history of Crohn's [facility] disease is noted per [facility] note dated 07/10/18. The current sampling shows no significant active or chronic colitis. This may represent complete histologic resolution following treatment. Clinical and endoscopic correlation is recommended. CPT Code(s) 26175H9 [facility] CLINICAL HISTORY Lower abdominal pain [facility] SPECIMEN SOURCE A. Random colon biopsy. B. [facility] Random transverse colon [facility] biopsy. C. Left random colon biopsy. D. Sigmoid random biopsy GROSS DESCRIPTION Specimen is received in four containers of formalin all labeled with the patient's information. [facility] Specimen A: Labeled "random right ascending colon biopsy" consists of two fragments of rodriguez tissue measuring 0.1 and 0.2 cm, submitted entirely in A1. Specimen B: Labeled "random transverse colon biopsy" consists of multiple fragments of rodriguez tissue ranging from less than 0.1 to 0.3 cm, submitted entirely in B1. Specimen C: Labeled "random left descending colon biopsy" consists of two fragments of rodriguez tissue measuring 0.4 and 0.6 cm, submitted entirely in C1. Specimen D: Labeled "random sigmoid biopsy" consists of three fragments of rodriguez tissue ranging from 0.1 to 0.3 cm, submitted entirely in D1. CG/ew MICROSCOPIC DESCRIPTION A-D. Section shows pieces of unremarkable colonic mucosa with preserved crypt architecture. No significant active inflammation or features of chronicity such as crypt architectural disturbances, basal p [facility] lasmacytosis, paneth cell metaplasia, pyloric gland metaplasia, granulomas are seen. No viral inclusions are seen. [facility] Also, no intraepithelial lymphocytosis or thickened subepithelial collagen band is seen. No features suggestive of amyloid deposition are noted. No dysplasia or carcinoma is present. Specimen Tissue - Large Intestine, Colon - Right/Ascending Performing Organization Address City/State/Zipcode Phone Number [facility] [address] [place] [address] CENTER CBC with platelet count + automated diff (07/11/2018 2:51 AM CDT)Only the most recent of6 resultswithin the time period is included. WBC 6.3 3.5 - 10.5 K/L [facility] RBC 3.92 (L) 3.93 - 5.22 M/L [facility] Hemoglobin 12.0 11.2 - 15.7 GM/DL [facility] Hematocrit 38.3 34.1 - 44.9 % [facility] MCV 97.7 (H) 79.4 - 94.8 fL [facility] MCH 30.6 25.6 - 32.2 pg [facility] MCHC 31.3 (L) 32.2 - 35.5 GM/DL [facility] RDW 13.5 11.7 - 14.4 % [facility] Platelets 220 150 - 450 K/CU MM [facility] MPV 9.6 9.4 - 12.3 fL [facility] nRBC 0 0 - 0 /100 WBC [facility] % Neutros 76 % [facility] % Lymphs 20 % [facility] % Monos 3 % [facility] % Eos 0 % [facility] % Baso 0 % [facility] # Neutros 4.80 1.56 - 6.13 K/L [facility] # Lymphs 1.26 1.18 - 3.74 K/L [facility] # Monos 0.20 (L) 0.24 - 0.36 K/L [facility] # Eos 0.00 (L) 0.04 - 0.36 K/L [facility] # Baso 0.01 0.01 - 0.08 K/L [facility] Immature Granulocytes-Relative 1 0 - 1 % [facility] Specimen Blood Performing Organization Address City/State/Zipcode Phone Number [facility] [address] [place] [address] CENTER Basic Metabolic Panel (07/11/2018 2:51 AM CDT)Only the most recent of6 resultswithin the time period is included. Sodium 145 136 - 145 meq/L [facility] Potassium 4.0 3.5 - 5.1 meq/L [facility] Chloride 111 (H) 98 - 107 meq/L [facility] CO2 27 22 - 29 meq/L [facility] BUN 2 (L) 7 - 21 mg/dL [facility] Creatinine 0.68 0.57 - 1.25 mg/dL [facility] Glucose 100 70 - 105 mg/dL [facility] Calcium 9.0 8.4 - 10.2 mg/dL [facility] EGFR 93Comment: ESTIMATED GFR IS mL/min/1.73 sq m [facility] NOT ACCURATE CREATININE [facility] CENTER CLEARANCE IN PREDICTING GLOMERULAR FILTRATION RATE. ESTIMATED GFR IS NOT APPLICABLE FOR DIALYSIS PATIENTS. Specimen Blood Performing Organization Address City/State/Zipcode Phone Number [facility] [address] [place] [address] abdomen & pelvis - enterography (07/08/2018 6:32 AM CDT) Narrative Performed At FINAL REPORT [employer] INDICATION: Abdominal pain and history of Crohn's disease. COMPARISON: None. TECHNIQUE: CT of the Abdomen and Pelvis WITH intravenous contrast. Volumen was used as enteric contrast. The exam was performed according to our department dose-optimization protocol, which includes automated exposure control, adjustments of mA and kV according to patient size. Iterative reconstructions are also sometimes employed. FINDINGS: In the sigmoid colon there are two segments segments of mucosal hyperenhancement and wall thickening indicating acute colitis. The left colon, transverse colon, and right colon appear normal. Ileal colostomy is noted. No small bowel mucosal hyperenhancement or bowel wall thickening is demonstrated. No stricture, fistula, or intramesenteric abscess identified. Liver, pancreas, and spleen are unremarkable. Patient is status post cholecystectomy. There is prominence of the left intrahepatic bile ducts and of the extrahepatic bile duct. The distal common bile duct tapers smoothly at the ampulla so that findings probably represents increased capacitance of the biliary system after cholecystectomy. Adrenal glands are unremarkable. Benign renal cyst are noted. Bladder is mildly distended and no bladder wall abnormality demonstrated. Patient is status post hysterectomy. No suspicious osseous lesion demonstrated. Endplate degenerative change at L1-2 and T12-L1 noted. There is an implanted pump in the right lower quadrant subcutaneous fat with a lead going to the thecal sac terminating at the T11 level. IMPRESSION: Evidence of acute colitis of the sigmoid colon. No small bowel enteritis demonstrated. No stricture, fistula, or intramesenteric abscess demonstrated. Signed: Vicente Johnson MD Report Verified Date/Time:07/08/2018 14:17:31 Reading Location: [facility] C013X Ortho Consult Reading Room Procedure Note Interface, External Ris In - 07/08/2018 2:19 PM CDT FINAL REPORT INDICATION: Abdominal pain and history of Crohn's disease. COMPARISON: None. TECHNIQUE: CT of the Abdomen and Pelvis WITH intravenous contrast. Volumen was used as enteric contrast. The exam was performed according to our department dose-optimization protocol, which includes automated exposure control, adjustments of mA and kV according to patient size. Iterative reconstructions are also sometimes employed. FINDINGS: In the sigmoid colon there are two segments segments of mucosal hyperenhancement and wall thickening indicating acute colitis. The left colon, transverse colon, and right colon appear normal. Ileal colostomy is noted. No small bowel mucosal hyperenhancement or bowel wall thickening is demonstrated. No stricture, fistula, or intramesenteric abscess identified. Liver, pancreas, and spleen are unremarkable. Patient is status post cholecystectomy. There is prominence of the left intrahepatic bile ducts and of the extrahepatic bile duct. The distal common bile duct tapers smoothly at the ampulla so that findings probably represents increased capacitance of the biliary system after cholecystectomy. Adrenal glands are unremarkable. Benign renal cyst are noted. Bladder is mildly distended and no bladder wall abnormality demonstrated. Patient is status post hysterectomy. No suspicious osseous lesion demonstrated. Endplate degenerative change at L1-2 and T12-L1 noted. There is an implanted pump in the right lower quadrant subcutaneous fat with a lead going to the thecal sac terminating at the T11 level. IMPRESSION: Evidence of acute colitis of the sigmoid colon. No small bowel enteritis demonstrated. No stricture, fistula, or intramesenteric abscess demonstrated. Signed: Vicente Johnson MD Report Verified Date/Time: 07/08/2018 14:17:31 Reading Location: [facility] B1 [id number] Ortho Consult Reading Room Performing Organization Address City/State/Zipcode Phone Number [facility] STOOL PATH CHARGE (07/06/2018 6:29 PM CUSTOMER CONSULTING MANAGER) Pathogen exam charged Done [facility] Specimen Stool - Stool Performing Organization Address [facility] Phone Number [address] [address] [phone] [place] Shiga Toxin Screen (07/06/2018 6:29 PM CUSTOMER CONSULTING MANAGER) Shiga toxin 1 Not detected Not detected [facility] Shiga toxin 2 Not detected Not detected [facility] Specimen Stool - Stool Performing Organization Address [facility] Phone Number [address] [address] [place] Stool culture + Shiga toxin (07/06/2018 6:29 PM CUSTOMER CONSULTING MANAGER) Result No Salmonella, Shigella or [facility] Campylobacter [facility] Specimen Stool - Stool Performing Organization Address [facility] Phone Number [address] [address] [place] Clostridium difficile [facility] Toxin (07/06/2018 6:28 PM CUSTOMER CONSULTING MANAGER) C. Difficle Toxin Negative Negative [facility] C. Difficile [facility] Antigen NegativeComment: No Negative [facility] indication of Clostridium [facility] difficile infection and no colonization. Discontinue enteric isolation and therapy. Specimen Stool - Stool Narrative Performed At Testing performed by [employer] [facility] Assay.For [facility], published sensitivity of the assay is 98.7% compared to cytotoxicity testing.For Toxin AB, published sensitivity is 87.8% and specificity 99.4% compared to cytotoxicity testing. Verification of kit performance was done by the [facility] Microbiology Lab prior to clinical use. Performing Organization Address [facility] Phone Number [address] [address] [place] XR chest 1 view portable / bedside (07/06/2018 1:20 PM CUSTOMER CONSULTING MANAGER) Narrative Performed At FINAL REPORT GE RIS TECHNIQUE: Frontal chest radiograph dated 07/06/2018. CLINICAL HISTORY: Fever COMPARISON STUDY: None IMPRESSION: Lungs are clear. No pleural effusion or pneumothorax. Cardiomediastinal silhouette is normal in size. No pulmonary edema. No fracture. Signed: Xiao Renteria MD Report Verified Date/Time:07/06/2018 14:21:04 Reading Location: [facility] Radiology Reading Room Procedure Note Interface, External Ris In - 07/06/2018 2:23 PM CUSTOMER CONSULTING MANAGER FINAL REPORT TECHNIQUE: Frontal chest radiograph dated 07/06/2018. CLINICAL HISTORY: Fever COMPARISON STUDY: None IMPRESSION: Lungs are clear. No pleural effusion or pneumothorax. Cardiomediastinal silhouette is normal in size. No pulmonary edema. No fracture. Signed: Xiao Renteria MD Report Verified Date/Time: 07/06/2018 14:21:04 Reading Location: [facility] Radiology Reading Room Performing Organization Address [facility] Phone Number [facility] Blood culture (07/06/2018 11:14 AM CUSTOMER CONSULTING MANAGER)Only the most recent of2 resultswithin the time period is included. Result No growth in 5 days [facility] Specimen Blood - Arm, Right Performing Organization Address [facility] Phone Number [address] [address] CENTER Lactic acid, venous, whole blood (07/06/2018 11:13 AM CUSTOMER CONSULTING MANAGER) Lactate, Venous 0.8Comment: Specimen 0.5 - 2.2 mmol/L [facility] moderately hemolyzed [facility] Specimen Blood - Arm, Right Performing Organization Address [facility] Phone Number [address] [address] [phone] CENTER Phosphorus (07/06/2018 10:49 AM CUSTOMER CONSULTING MANAGER) Phosphorus 3.0 2.3 - 4.7 mg/dL [facility] Specimen Blood - Arm, Left Performing Organization Address [facility] Phone Number [address] [address] [place] Magnesium (07/06/2018 10:49 AM CUSTOMER CONSULTING MANAGER) Magnesium 2.1 1.6 - 2.6 mg/dL [facility] Specimen Blood - Arm, Left Performing Organization Address [facility] Phone Number [address] [address] [phone] [place] Hepatic function panel (07/06/2018 10:49 AM CUSTOMER CONSULTING MANAGER) Protein, Total 6.4 6.0 - 8.3 gm/dL [facility] Albumin 3.9 3.5 - 5.0 g/dL [facility] Total Bilirubin 0.5 0.2 - 1.2 mg/dL [facility] Bilirubin, Direct 0.2 0.1 - 0.5 mg/dL [facility] Alkaline Phosphatase 78 40 - 150 U/L [facility] AST 14 5 - 34 U/L [facility] ALT 12 6 - 55 U/L [facility] Specimen Blood - Arm, Left Performing Organization Address [facility] Phone Number [address] [address] [place] Urinalysis w/Microscopic + Reflex to Culture (07/06/2018 10:14 AM CUSTOMER CONSULTING MANAGER) Color, UA Light Yellow [facility] CENTER Clarity, UA Clear [facility] Specific [place], UA 1.020 1.001 - 1.035 [facility] pH, UA 6.5 5.0 - 8.0 [facility] Protein, UA Negative Negative [facility] Glucose, UA Negative Negative [facility] Ketones, UA Negative Negative [facility] Bilirubin, UA Negative Negative [facility] Blood, UA Negative Negative [facility] Nitrite, UA Negative Negative [facility] Leukocytes, UA Negative Negative [facility] Urobilinogen, UA 0.2 0.2 - 1.0 mg/dL [facility] RBC, UA <1 /HPF [facility] WBC, UA 0 /HPF [facility] Squam Epithel, UA <1 /HPF [facility] Specimen Source [facility] Specimen Urine - Urine, Voided Performing Organization Address City/State/Zipcode Phone Number [facility] [address] [place] [address] [phone] [facility] Rapid drug screen, urine (07/06/2018 10:14 AM CUSTOMER CONSULTING MANAGER) Barbiturate Screen Negative Negative [facility] Benzodiazepine Screen Positive (A) Negative [facility] Cocaine (Metab.) Screen Negative Negative [facility] Methadone Screen Negative Negative [facility] Opiate Screen Positive (A) Negative [facility] Cannabinoid Screen Negative Negative [facility] Amph/Methamph Screen Negative Negative [facility] Phencyclidine Screen Negative Negative [facility] Oxycodone Screen Negative Negative [facility] Specimen Urine - Urine, Clean Catch Narrative Performed At [facility] CONC. Cocaine 300 ng/mL Lunadqoypcs91 ng/mL Mmpmmislaxnnrl309 ng/mL Barbiturate 200 ng/mL Xtjqnuorewhfy04 ng/mL Dwzyfq815 ng/mL Methadone 300 ng/mL Amphetamine/ 1000 ng/mL Methamphetamine Oxycodone 300 ng/mL This assay provides an unconfirmed qualitative test result for the clinical management of patients in emergency situations. Chain of custody not maintained. Some brwm-byb-wyorhgb medications, as well as adulterants, may cause inaccurate results. Clinical correlation should be applied. A more comprehensive drug screen or confirmation of a detected drug may be performed upon request. Performing Organization Address City/State/Zipcode Phone Number [place] [id number] [place] [address] [phone] CENTER after 07/13/2017 Insurance Payer Benefit Plan / Group Subscriber ID Type Phone Address MEDICARE MEDICARE A B xxxxxxxxxxx Medicare DIAZ MEDICAID MEDICAID DIAZ xxxxxxxxx (Home) [address] [place] [id number] Advance Directives For more information, please contact:[address] [phone] Code Status Date Activated Date Inactivated Comments Full Code 07/06/2018 8:11 AM 07/11/2018 6:24 PM This code status was determined by: Patient
--- OUTSIDE RECORDS SUMMARY | 2018-07-14 15:44 | XMS REPORT ---
:1970 [facility] Address [address] [place] [address] [address]. [address] [place] [address] Care Team Providers Name Role Phone DR EDGARD CASH Unavailable Unavailable SHAMSEE, PAPI-JOSE ALEJANDRO-AHMED Unavailable Unavailable BLAKE ALLEN - Unavailable Unavailable RADHA DELVALLE Unavailable Unavailable Problems This patient has no known problems. Allergies, Adverse Reactions, Alerts This patient has no known allergies or adverse reactions. Medications This patient has no known medications. Encounters Start End Encounter Admission Attending Care Care Encounter Date/Time Date/Time Type Type Clinicians Facility Department ID 2016-11-04 Inpatient C SH[facility] [id number] 09:30:00 EDGARD 2016-07-15 2016-07-19 Inpatient 1 LOLA [facility]ENET [facility] [id number] 18:47:00 10:30:00 BLAKE 2013-11-19 2013-11-19 Emergency E MOOK [facility] [id number] 10:08:00 12:55:00 RADHA Results Test Description Test Time Test Comments Text Results Atomic Results Result Comments TISSUE EXAM 2018-07-12 09:23:00 Surgical Pathology Report Case: [id number] Authorizing Provider: King Huynh MD Collected: 07/11/2018 0924 Ordering Location: [address] Received: 07/11/2018 1421 Service Pathologist: Linda Mullen MD Specimens: A) - Large Intestine, Colon - Right/Ascending, random biopsies B) - Large Intestine, Colon - Transverse, random biopsies C) - Large Intestine, Colon - Left/Descending, random biopsies D) - Large Intestine, Colon - Sigmoid, random biopsies A. COLON, RIGHT/ASCENDING, RANDOM, BIOPSY: - COLONIC MUCOSA WITH NO SIGNIFICANT DIAGNOSTIC ABNORMALITY (SEE MICROSCOPIC DESCRIPTION AND COMMENT)B. COLON, TRANSVERSE, RANDOM, BIOPSY: - COLONIC MUCOSA WITH NO SIGNIFICANT DIAGNOSTIC ABNORMALITY (SEE MICROSCOPIC DESCRIPTION AND COMMENT)C. COLON, LEFT/DESCENDING, RANDOM, BIOPSY: - COLONIC MUCOSA WITH NO SIGNIFICANT DIAGNOSTIC ABNORMALITY (SEE MICROSCOPIC DESCRIPTION AND COMMENT)D. COLON, SIGMOID, RANDOM, BIOPSY: - COLONIC MUCOSA WITH NO SIGNIFICANT DIAGNOSTIC ABNORMALITY (SEE MICROSCOPIC DESCRIPTION AND COMMENT) Signing Pathologist Direct Phone Line: [phone] signed by Linda Mullen MD on 07/12/2018 at 9:23 AMPatient's history of Crohn's disease is noted per Epic note dated 07/10/18. The current sampling shows no significant active or chronic colitis. This may represent complete histologic resolution following treatment. Clinical and endoscopic correlation is recommended.[id number] abdominal pain A. Random colon biopsy. B. Random transverse colon biopsy. C. Left random colon biopsy. D. Sigmoid random biopsySpecimen is received in four containers of formalin all labeled with the patient's information.Specimen A: Labeled "random right ascending colon biopsy" consists of two fragments of rodriguez tissue measuring 0.1 and 0.2 cm, submitted entirely in A1.Specimen B: Labeled "random transverse colon biopsy" consists of multiple fragments of rodriguez tissue ranging from less than 0.1 to 0.3 cm, submitted entirely in B1.Specimen C: Labeled "random left descending colon biopsy" consists of two fragments of rodriguez tissue measuring 0.4 and 0.6 cm, submitted entirely in C1.Specimen D: Labeled "random sigmoid biopsy" consists of three fragments of rodriguez tissue ranging from 0.1 to 0.3 cm, submitted entirely in D1. CG/ew A-D. Section shows pieces of unremarkable colonic mucosa with preserved crypt architecture. No significant active inflammation or features of chronicity such as crypt architectural disturbances, basal plasmacytosis, paneth cell metaplasia, pyloric gland metaplasia, granulomas are seen. No viral inclusions are seen.Also, no intraepithelial lymphocytosis or thickened subepithelial collagen band is seen. No features suggestive of amyloid deposition are noted. No dysplasia or carcinoma is present. BLOOD CULTURE 2018-07-11 20:01:00 Test Item Value Reference Range Comments CULTURE ([employer]) (test ktdl=7531) No growth in 5 days BLOOD [id number] 20:01:00 Test Item Value Reference Range Comments CULTURE (BEAKER) (test tgxc=2089) No growth in 5 days BASIC METABOLIC [id number] 04:55:00 Test Item Value Reference Range Comments SODIUM (BEAKER) (test 145 meq/L 136-145 mugz=497) POTASSIUM (BEAKER) (test 4.0 meq/L 3.5-5.1 eeah=437) CHLORIDE (BEAKER) (test 111 meq/L 98-107 suxa=390) CO2 (BEAKER) (test 27 meq/L 22-29 wkmg=588) BLOOD UREA NITROGEN 2 mg/dL 7-21 (BEAKER) (test teta=713) CREATININE (BEAKER) (test 0.68 mg/dL 0.57-1.25 jblt=011) GLUCOSE RANDOM (BEAKER) 100 mg/dL 70-105 (test fitl=351) CALCIUM (BEAKER) (test 9.0 mg/dL 8.4-10.2 sayx=957) EGFR (BEAKER) (test 93 mL/min/1.73 sq m ESTIMATED GFR IS NOT ohlv=1593) ACCURATE CREATININE CLEARANCE IN PREDICTING GLOMERULAR FILTRATION RATE. ESTIMATED GFR IS NOT APPLICABLE FOR DIALYSIS PATIENTS. CBC W/PLT COUNT & AUTO [id number] 04:37:00 Test Item Value Reference Range Comments WHITE BLOOD CELL COUNT (BEAKER) (test qevs=305) 6.3 K/ L 3.5-10.5 RED BLOOD CELL COUNT (BEAKER) (test nijr=348) 3.92 M/ L 3.93-5.22 HEMOGLOBIN (BEAKER) (test bdlv=931) 12.0 GM/DL 11.2-15.7 HEMATOCRIT (BEAKER) (test tvdd=381) 38.3 % 34.1-44.9 MEAN CORPUSCULAR VOLUME (BEAKER) (test yvfo=726) 97.7 fL 79.4-94.8 MEAN CORPUSCULAR HEMOGLOBIN (BEAKER) (test 30.6 pg 25.6-32.2 jelm=161) MEAN CORPUSCULAR HEMOGLOBIN CONC (BEAKER) (test 31.3 GM/DL 32.2-35.5 omgj=982) RED CELL DISTRIBUTION WIDTH (BEAKER) (test 13.5 % 11.7-14.4 eqrc=218) PLATELET COUNT (BEAKER) (test rook=532) 220 K/CU MM 150-450 MEAN PLATELET VOLUME (BEAKER) (test jhsf=482) 9.6 fL 9.4-12.3 NUCLEATED RED BLOOD CELLS (BEAKER) (test 0 /100 WBC 0-0 yuws=896) NEUTROPHILS RELATIVE PERCENT (BEAKER) (test 76 % yopw=569) LYMPHOCYTES RELATIVE PERCENT (BEAKER) (test 20 % wacg=312) MONOCYTES RELATIVE PERCENT (BEAKER) (test 3 % qbay=876) EOSINOPHILS RELATIVE PERCENT (BEAKER) (test 0 % vfxu=995) BASOPHILS RELATIVE PERCENT (BEAKER) (test 0 % pinl=434) NEUTROPHILS ABSOLUTE COUNT (BEAKER) (test 4.80 K/ L 1.56-6.13 ijhy=273) LYMPHOCYTES ABSOLUTE COUNT (BEAKER) (test 1.26 K/ L 1.18-3.74 msec=673) MONOCYTES ABSOLUTE COUNT (BEAKER) (test 0.20 K/ L 0.24-0.36 wgav=772) EOSINOPHILS ABSOLUTE COUNT (BEAKER) (test 0.00 K/ L 0.04-0.36 zaer=544) BASOPHILS ABSOLUTE COUNT (BEAKER) (test 0.01 K/ L 0.01-0.08 bnjs=874) IMMATURE GRANULOCYTES-RELATIVE PERCENT (BEAKER) 1 % 0-1 (test ceie=7238) BASIC METABOLIC [id number] 06:15:00 Test Item Value Reference Range Comments SODIUM (BEAKER) (test 144 meq/L 136-145 luzm=103) POTASSIUM (BEAKER) (test 4.3 meq/L 3.5-5.1 Specimen slightly alxu=834) hemolyzed CHLORIDE (BEAKER) (test 113 meq/L 98-107 tahp=610) CO2 (BEAKER) (test 24 meq/L 22-29 jgiu=058) BLOOD UREA NITROGEN 3 mg/dL 7-21 (BEAKER) (test ybnd=191) CREATININE (BEAKER) (test 0.72 mg/dL 0.57-1.25 Specimen slightly zaga=258) hemolyzed GLUCOSE RANDOM (BEAKER) 138 mg/dL 70-105 (test dwxp=101) CALCIUM (BEAKER) (test 9.3 mg/dL 8.4-10.2 guds=028) EGFR (BEAKER) (test 87 mL/min/1.73 sq m ESTIMATED GFR IS NOT rmjq=8852) ACCURATE CREATININE CLEARANCE IN PREDICTING GLOMERULAR FILTRATION RATE. ESTIMATED GFR IS NOT APPLICABLE FOR DIALYSIS PATIENTS. CBC W/PLT COUNT & AUTO [id number] 06:06:00 Test Item Value Reference Range Comments WHITE BLOOD CELL COUNT (BEAKER) (test good=406) 7.5 K/ L 3.5-10.5 RED BLOOD CELL COUNT (BEAKER) (test tgny=990) 4.07 M/ L 3.93-5.22 HEMOGLOBIN (BEAKER) (test mssh=282) 12.9 GM/DL 11.2-15.7 HEMATOCRIT (BEAKER) (test ccjx=245) 40.3 % 34.1-44.9 MEAN CORPUSCULAR VOLUME (BEAKER) (test vrti=154) 99.0 fL 79.4-94.8 MEAN CORPUSCULAR HEMOGLOBIN (BEAKER) (test 31.7 pg 25.6-32.2 uvrh=909) MEAN CORPUSCULAR HEMOGLOBIN CONC (BEAKER) (test 32.0 GM/DL 32.2-35.5 ihmd=551) RED CELL DISTRIBUTION WIDTH (BEAKER) (test 13.3 % 11.7-14.4 dwkz=219) PLATELET COUNT (BEAKER) (test gpgt=189) 191 K/CU MM 150-450 MEAN PLATELET VOLUME (BEAKER) (test ifcd=889) 9.9 fL 9.4-12.3 NUCLEATED RED BLOOD CELLS (BEAKER) (test 0 /100 WBC 0-0 vnib=215) NEUTROPHILS RELATIVE PERCENT (BEAKER) (test 70 % maow=411) LYMPHOCYTES RELATIVE PERCENT (BEAKER) (test 24 % xafg=411) MONOCYTES RELATIVE PERCENT (BEAKER) (test 5 % pcaq=775) EOSINOPHILS RELATIVE PERCENT (BEAKER) (test 0 % bppm=030) BASOPHILS RELATIVE PERCENT (BEAKER) (test 0 % zuis=269) NEUTROPHILS ABSOLUTE COUNT (BEAKER) (test 5.25 K/ L 1.56-6.13 uuph=581) LYMPHOCYTES ABSOLUTE COUNT (BEAKER) (test 1.83 K/ L 1.18-3.74 nxua=914) MONOCYTES ABSOLUTE COUNT (BEAKER) (test 0.37 K/ L 0.24-0.36 kuoh=457) EOSINOPHILS ABSOLUTE COUNT (BEAKER) (test 0.02 K/ L 0.04-0.36 cxzt=531) BASOPHILS ABSOLUTE COUNT (BEAKER) (test 0.01 K/ L 0.01-0.08 oliu=763) IMMATURE GRANULOCYTES-RELATIVE PERCENT (BEAKER) 0 % 0-1 (test ctqg=9836) STOOL CULTURE + SHIGA [id number] 12:15:00 Test Item Value Reference Range Comments CULTURE (BEAKER) (test No Salmonella, Shigella or ktgk=2646) Campylobacter isolated BASIC METABOLIC [id number] 07:08:00 Test Item Value Reference Range Comments SODIUM (BEAKER) (test 143 meq/L 136-145 wjqh=649) POTASSIUM (BEAKER) (test 4.2 meq/L 3.5-5.1 iuns=705) CHLORIDE (BEAKER) (test 111 meq/L 98-107 qcod=776) CO2 (BEAKER) (test 25 meq/L 22-29 bbnc=632) BLOOD UREA NITROGEN 3 mg/dL 7-21 (BEAKER) (test loxi=283) CREATININE (BEAKER) (test 0.67 mg/dL 0.57-1.25 mcpd=107) GLUCOSE RANDOM (BEAKER) 106 mg/dL 70-105 (test xwlk=219) CALCIUM (BEAKER) (test 9.2 mg/dL 8.4-10.2 xvjh=479) EGFR (BEAKER) (test 95 mL/min/1.73 sq m ESTIMATED GFR IS NOT iytk=2000) ACCURATE CREATININE CLEARANCE IN PREDICTING GLOMERULAR FILTRATION RATE. ESTIMATED GFR IS NOT APPLICABLE FOR DIALYSIS PATIENTS. CBC W/PLT COUNT & AUTO [id number] 06:42:00 Test Item Value Reference Range Comments WHITE BLOOD CELL COUNT (BEAKER) (test irbe=642) 6.2 K/ L 3.5-10.5 RED BLOOD CELL COUNT (BEAKER) (test fzvq=151) 4.29 M/ L 3.93-5.22 HEMOGLOBIN (BEAKER) (test miiu=584) 13.4 GM/DL 11.2-15.7 HEMATOCRIT (BEAKER) (test nmmh=774) 41.1 % 34.1-44.9 MEAN CORPUSCULAR VOLUME (BEAKER) (test zrpr=165) 95.8 fL 79.4-94.8 MEAN CORPUSCULAR HEMOGLOBIN (BEAKER) (test 31.2 pg 25.6-32.2 vhdk=534) MEAN CORPUSCULAR HEMOGLOBIN CONC (BEAKER) (test 32.6 GM/DL 32.2-35.5 qacg=703) RED CELL DISTRIBUTION WIDTH (BEAKER) (test 13.1 % 11.7-14.4 jrtb=516) PLATELET COUNT (BEAKER) (test vcgs=223) 232 K/CU MM 150-450 MEAN PLATELET VOLUME (BEAKER) (test iior=626) 9.0 fL 9.4-12.3 NUCLEATED RED BLOOD CELLS (BEAKER) (test 0 /100 WBC 0-0 wldb=538) NEUTROPHILS RELATIVE PERCENT (BEAKER) (test 67 % kets=992) LYMPHOCYTES RELATIVE PERCENT (BEAKER) (test 27 % ovcd=949) MONOCYTES RELATIVE PERCENT (BEAKER) (test 5 % kutx=742) EOSINOPHILS RELATIVE PERCENT (BEAKER) (test 0 % mlhq=215) BASOPHILS RELATIVE PERCENT (BEAKER) (test 0 % xfov=034) NEUTROPHILS ABSOLUTE COUNT (BEAKER) (test 4.18 K/ L 1.56-6.13 kxki=469) LYMPHOCYTES ABSOLUTE COUNT (BEAKER) (test 1.69 K/ L 1.18-3.74 ungf=918) MONOCYTES ABSOLUTE COUNT (BEAKER) (test 0.29 K/ L 0.24-0.36 zucj=679) EOSINOPHILS ABSOLUTE COUNT (BEAKER) (test 0.01 K/ L 0.04-0.36 ereh=809) BASOPHILS ABSOLUTE COUNT (BEAKER) (test 0.02 K/ L 0.01-0.08 zjag=943) IMMATURE GRANULOCYTES-RELATIVE PERCENT (BEAKER) 1 % 0-1 (test kmrq=7417) CT, ABDOMEN - PELVIS, [id number] 14:17:00Reason for exam:-> Evaluation of small bowel disease, Crohn'sFINAL REPORT INDICATION:Abdominal pain and history of Crohn's disease. COMPARISON: None. TECHNIQUE: CT of the Abdomen and Pelvis WITH intravenous contrast. Volumen was used as enteric contrast. The exam was performed according to our department dose-optimization protocol, which includes automated exposure control, adjustments of mA and kV according to patient size. Iterative reconstructions are also sometimes employed. FINDINGS:In the sigmoid colon there are two segments segments of mucosal hyperenhancement and wall thickening indicating acute colitis. The left colon, transverse colon, and right colon appear normal. Ileal colostomy is noted. No small bowel mucosal hyperenhancement or bowel wall thickening is demonstrated. No stricture, fistula, or intramesenteric abscess identified. Liver, pancreas, and spleen are unremarkable. Patient is status post cholecystectomy. Thereis prominence of the left intrahepatic bile ducts and of the extrahepatic bile duct. The distal common bile duct tapers smoothly at the ampulla so that findings probably represents increased capacitance of the biliary system after cholecystectomy. Adrenal glands are unremarkable. Benign renal cyst arenoted. Bladder is mildly distended and no bladder wall abnormality demonstrated. Patient is status post hysterectomy. No suspicious osseous lesion demonstrated. Endplate degenerative change at L1-2 perU22-U1 noted. There is an implanted pump in the right lower quadrant subcutaneous fat with a lead going to the thecal sac terminating at the T11 level. IMPRESSION: Evidence of acute colitis of the sigmoid colon. No small bowel enteritis demonstrated. No stricture, fistula, or intramesenteric abscess demonstrated. Signed: Vicente Montero MDReport Verified Date/Time: 07/08/2018 14:17:31 Reading Location: [facility] B1 [id number] Ortho Consult Reading [facility] METABOLIC [id number] 06:53:00 Test Item Value Reference Range Comments SODIUM (BEAKER) (test 137 meq/L 136-145 lzmg=965) POTASSIUM (BEAKER) (test 4.2 meq/L 3.5-5.1 xvfz=746) CHLORIDE (BEAKER) (test 105 meq/L 98-107 yvjl=096) CO2 (BEAKER) (test 23 meq/L 22-29 iwsw=950) BLOOD UREA NITROGEN 3 mg/dL 7-21 (BEAKER) (test dnjv=305) CREATININE (BEAKER) (test 0.75 mg/dL 0.57-1.25 scrb=549) GLUCOSE RANDOM (BEAKER) 85 mg/dL 70-105 (test uifd=410) CALCIUM (BEAKER) (test 8.6 mg/dL 8.4-10.2 vfjq=845) EGFR (BEAKER) (test 83 mL/min/1.73 sq m ESTIMATED GFR IS NOT gxgw=5303) ACCURATE CREATININE CLEARANCE IN PREDICTING GLOMERULAR FILTRATION RATE. ESTIMATED GFR IS NOT APPLICABLE FOR DIALYSIS PATIENTS. CBC W/PLT COUNT & AUTO [id number] 06:25:00 Test Item Value Reference Range Comments WHITE BLOOD CELL COUNT (BEAKER) (test zjjy=485) 5.3 K/ L 3.5-10.5 RED BLOOD CELL COUNT (BEAKER) (test clem=139) 4.11 M/ L 3.93-5.22 HEMOGLOBIN (BEAKER) (test kazm=009) 12.8 GM/DL 11.2-15.7 HEMATOCRIT (BEAKER) (test ugmk=103) 40.4 % 34.1-44.9 MEAN CORPUSCULAR VOLUME (BEAKER) (test oqoa=031) 98.3 fL 79.4-94.8 MEAN CORPUSCULAR HEMOGLOBIN (BEAKER) (test 31.1 pg 25.6-32.2 vbmg=145) MEAN CORPUSCULAR HEMOGLOBIN CONC (BEAKER) (test 31.7 GM/DL 32.2-35.5 xzbz=986) RED CELL DISTRIBUTION WIDTH (BEAKER) (test 13.7 % 11.7-14.4 qcti=409) PLATELET COUNT (BEAKER) (test akmv=013) 213 K/CU MM 150-450 MEAN PLATELET VOLUME (BEAKER) (test gcck=778) 8.9 fL 9.4-12.3 NUCLEATED RED BLOOD CELLS (BEAKER) (test 0 /100 WBC 0-0 gbqi=127) NEUTROPHILS RELATIVE PERCENT (BEAKER) (test 47 % qpxt=043) LYMPHOCYTES RELATIVE PERCENT (BEAKER) (test 39 % xoki=940) MONOCYTES RELATIVE PERCENT (BEAKER) (test 9 % uccw=441) EOSINOPHILS RELATIVE PERCENT (BEAKER) (test 5 % zkao=161) BASOPHILS RELATIVE PERCENT (BEAKER) (test 0 % wunq=149) NEUTROPHILS ABSOLUTE COUNT (BEAKER) (test 2.48 K/ L 1.56-6.13 dqpr=975) LYMPHOCYTES ABSOLUTE COUNT (BEAKER) (test 2.04 K/ L 1.18-3.74 jusa=724) MONOCYTES ABSOLUTE COUNT (BEAKER) (test 0.45 K/ L 0.24-0.36 oudh=945) EOSINOPHILS ABSOLUTE COUNT (BEAKER) (test 0.26 K/ L 0.04-0.36 sast=195) BASOPHILS ABSOLUTE COUNT (BEAKER) (test 0.02 K/ L 0.01-0.08 ujzr=031) IMMATURE GRANULOCYTES-RELATIVE PERCENT (BEAKER) 0 % 0-1 (test gwhu=5148) SHIGA TOXIN [id number] 13:53:00 Test Item Value Reference Range Comments SHIGA TOXIN 1 (BEAKER) (test qbbi=7150) Not detected Not detected SHIGA TOXIN 2 (BEAKER) (test wlft=4379) Not detected Not detected C. DIFFICILE GDH [id number] 13:28:00 Test Item Value Reference Range Comments CDT TOXIN (test Negative Negative hsia=[id number]) CDT GDH ANTIGEN (test Negative Negative No indication of Clostridium uylf=[id number]) difficile infection and no colonization. Discontinue enteric isolation and therapy. Testing performed by [employer] Rapid Cassette Assay. For GDH, published sensitivity of the assay is 98.7% compared to cytotoxicity testing. For Toxin AB, published sensitivity is 87.8% and specificity 99.4% compared to cytotoxicity testing.Verification of kit performance was done by the [facility] Microbiology Lab prior to clinical use.STOOL PATH [id number] 10:17:00 Test Item Value Reference Range Comments PATHOGEN EXAM CHARGED (BEAKER) (test erlb=1490) Done BASIC METABOLIC [id number] 05:17:00 Test Item Value Reference Range Comments SODIUM (BEAKER) (test 142 meq/L 136-145 vklh=067) POTASSIUM (BEAKER) (test 4.3 meq/L 3.5-5.1 ebhr=488) CHLORIDE (BEAKER) (test 110 meq/L 98-107 zpkv=898) CO2 (BEAKER) (test 25 meq/L 22-29 alwy=522) BLOOD UREA NITROGEN 5 mg/dL 7-21 (BEAKER) (test wpty=699) CREATININE (BEAKER) (test 0.78 mg/dL 0.57-1.25 adxu=585) GLUCOSE RANDOM (BEAKER) 108 mg/dL 70-105 (test usqq=335) CALCIUM (BEAKER) (test 8.9 mg/dL 8.4-10.2 cgdh=731) EGFR (BEAKER) (test 80 mL/min/1.73 sq m ESTIMATED GFR IS NOT eaut=9583) ACCURATE CREATININE CLEARANCE IN PREDICTING GLOMERULAR FILTRATION RATE. ESTIMATED GFR IS NOT APPLICABLE FOR DIALYSIS PATIENTS. CBC W/PLT COUNT & AUTO [id number] 04:58:00 Test Item Value Reference Range Comments WHITE BLOOD CELL COUNT (BEAKER) (test hsut=686) 4.8 K/ L 3.5-10.5 RED BLOOD CELL COUNT (BEAKER) (test vmng=034) 3.79 M/ L 3.93-5.22 HEMOGLOBIN (BEAKER) (test uskd=697) 11.8 GM/DL 11.2-15.7 HEMATOCRIT (BEAKER) (test nndz=232) 37.6 % 34.1-44.9 MEAN CORPUSCULAR VOLUME (BEAKER) (test nqbl=784) 99.2 fL 79.4-94.8 MEAN CORPUSCULAR HEMOGLOBIN (BEAKER) (test 31.1 pg 25.6-32.2 ylsa=331) MEAN CORPUSCULAR HEMOGLOBIN CONC (BEAKER) (test 31.4 GM/DL 32.2-35.5 zkmo=378) RED CELL DISTRIBUTION WIDTH (BEAKER) (test 14.5 % 11.7-14.4 jfdm=907) PLATELET COUNT (BEAKER) (test dvqv=054) 216 K/CU MM 150-450 MEAN PLATELET VOLUME (BEAKER) (test jydb=743) 9.3 fL 9.4-12.3 NUCLEATED RED BLOOD CELLS (BEAKER) (test 0 /100 WBC 0-0 bghc=183) NEUTROPHILS RELATIVE PERCENT (BEAKER) (test 44 % xzyr=022) LYMPHOCYTES RELATIVE PERCENT (BEAKER) (test 44 % wtet=831) MONOCYTES RELATIVE PERCENT (BEAKER) (test 6 % fenh=770) EOSINOPHILS RELATIVE PERCENT (BEAKER) (test 5 % pztc=443) BASOPHILS RELATIVE PERCENT (BEAKER) (test 0 % gnyd=910) NEUTROPHILS ABSOLUTE COUNT (BEAKER) (test 2.14 K/ L 1.56-6.13 ftiv=250) LYMPHOCYTES ABSOLUTE COUNT (BEAKER) (test 2.12 K/ L 1.18-3.74 qlgs=950) MONOCYTES ABSOLUTE COUNT (BEAKER) (test 0.31 K/ L 0.24-0.36 bcwf=956) EOSINOPHILS ABSOLUTE COUNT (BEAKER) (test 0.24 K/ L 0.04-0.36 zlbq=409) BASOPHILS ABSOLUTE COUNT (BEAKER) (test 0.01 K/ L 0.01-0.08 lqio=018) IMMATURE GRANULOCYTES-RELATIVE PERCENT (BEAKER) 0 % 0-1 (test lvbt=0146) RAD, CHEST, 1 VIEW, NON [id number] 14:21:00Reason for exam:->FeverShould this be performed at the bedside?->YesFINAL REPORT TECHNIQUE: Frontal chest radiograph dated 07/06/2018. CLINICAL HISTORY: Fever COMPARISON STUDY: None IMPRESSION:Lungs are clear. No pleural effusion or pneumothorax. Cardiomediastinal silhouette is normal in size. No pulmonary edema. No fracture. Signed: Xiao Mckinneyeport Verified Date/Time: 11/2018 14:21:04 Reading Location: [facility] Radiology Reading Room RAPID DRUG SCREEN , [id number] 12:52:00 Test Item Value Reference Range Comments BARBITURATE URINE (BEAKER) (test ksly=770) Negative Negative BENZODIAZEPINE SCREEN URINE (BEAKER) (test Positive Negative dpku=109) COCAINE (METAB.) SCREEN (BEAKER) (test kilu=1645) Negative Negative METHADONE SCREEN (BEAKER) (test oquu=2874) Negative Negative OPIATE SCREEN URINE (BEAKER) (test vezk=638) Positive Negative CANNABINOID SCREEN URINE (BEAKER) (test hddq=401) Negative Negative AMPH/METHAMPH SCREEN (BEAKER) (test gyse=9207) Negative Negative PHENCYCLIDINE SCREEN URINE (BEAKER) (test qpkr=515) Negative Negative OXYCODONE SCREEN URINE (BEAKER) (test ikbg=2753) Negative Negative DRUG CUTOFF CONC.Cocaine 300 ng/mL Cannabinoid 50 ng/mL Benzodiazepine 200 ng/mLBarbiturate 200 ng/ mLPhencyclidine 25 ng/mLOpiate 300 ng/mLMethadone 300 ng/mLAmphetamine/ 1000 ng/mL MethamphetamineOxycodone 300 ng/mLThis assay provides an unconfirmed qualitative test result for the clinical management of patients in emergency situations. Chain of custody not maintained. Some rqhe-ucq-fnhiaqb medications, as well as adulterants, may cause inaccurate results. Clinical correlation should be applied. A more comprehensive drug screen or confirmation of a detected drug may be performed upon request.CBC W/PLT COUNT & AUTO [id number] 12:40:00 Test Item Value Reference Range Comments WHITE BLOOD CELL COUNT (BEAKER) (test ivkq=413) 8.7 K/ L 3.5-10.5 RED BLOOD CELL COUNT (BEAKER) (test jxwo=150) 4.01 M/ L 3.93-5.22 HEMOGLOBIN (BEAKER) (test ueiz=720) 12.6 GM/DL 11.2-15.7 HEMATOCRIT (BEAKER) (test ucff=577) 39.3 % 34.1-44.9 MEAN CORPUSCULAR VOLUME (BEAKER) (test ytll=390) 98.0 fL 79.4-94.8 MEAN CORPUSCULAR HEMOGLOBIN (BEAKER) (test 31.4 pg 25.6-32.2 qrjl=764) MEAN CORPUSCULAR HEMOGLOBIN CONC (BEAKER) (test 32.1 GM/DL 32.2-35.5 wlpg=191) RED CELL DISTRIBUTION WIDTH (BEAKER) (test 14.3 % 11.7-14.4 wltj=760) PLATELET COUNT (BEAKER) (test zmwt=487) 212 K/CU MM 150-450 MEAN PLATELET VOLUME (BEAKER) (test usyj=492) 10.0 fL 9.4-12.3 NUCLEATED RED BLOOD CELLS (BEAKER) (test 0 /100 WBC 0-0 uznl=103) NEUTROPHILS RELATIVE PERCENT (BEAKER) (test 65 % vvbb=149) LYMPHOCYTES RELATIVE PERCENT (BEAKER) (test 25 % ojjw=894) MONOCYTES RELATIVE PERCENT (BEAKER) (test 7 % eyyg=375) EOSINOPHILS RELATIVE PERCENT (BEAKER) (test 2 % nqqn=327) BASOPHILS RELATIVE PERCENT (BEAKER) (test 0 % zuym=083) NEUTROPHILS ABSOLUTE COUNT (BEAKER) (test 5.70 K/ L 1.56-6.13 awso=472) LYMPHOCYTES ABSOLUTE COUNT (BEAKER) (test 2.18 K/ L 1.18-3.74 falo=547) MONOCYTES ABSOLUTE COUNT (BEAKER) (test 0.59 K/ L 0.24-0.36 volv=866) EOSINOPHILS ABSOLUTE COUNT (BEAKER) (test 0.17 K/ L 0.04-0.36 chvb=588) BASOPHILS ABSOLUTE COUNT (BEAKER) (test 0.02 K/ L 0.01-0.08 rfwr=034) IMMATURE GRANULOCYTES-RELATIVE PERCENT (BEAKER) 1 % 0-1 (test dytx=1900) [id number] 12:12:00 Test Item Value Reference Range Comments PHOSPHORUS (BEAKER) (test nujb=185) 3.0 mg/dL 2.3-4.7 [id number] 12:12:00 Test Item Value Reference Range Comments MAGNESIUM (BEAKER) (test jotw=863) 2.1 mg/dL 1.6-2.6 BASIC METABOLIC [id number] 12:12:00 Test Item Value Reference Range Comments SODIUM (BEAKER) (test 138 meq/L 136-145 acyi=183) POTASSIUM (BEAKER) (test 3.7 meq/L 3.5-5.1 avtu=628) CHLORIDE (BEAKER) (test 104 meq/L 98-107 odcl=867) CO2 (BEAKER) (test 25 meq/L 22-29 tefz=605) BLOOD UREA NITROGEN 8 mg/dL 7-21 (BEAKER) (test emcv=822) CREATININE (BEAKER) (test 0.72 mg/dL 0.57-1.25 rtwp=877) GLUCOSE RANDOM (BEAKER) 93 mg/dL 70-105 (test bblx=538) CALCIUM (BEAKER) (test 9.1 mg/dL 8.4-10.2 azyu=832) EGFR (BEAKER) (test 87 mL/min/1.73 sq m ESTIMATED GFR IS NOT yoqc=6562) ACCURATE CREATININE CLEARANCE IN PREDICTING GLOMERULAR FILTRATION RATE. ESTIMATED GFR IS NOT APPLICABLE FOR DIALYSIS PATIENTS. HEPATIC FUNCTION [id number] 12:12:00 Test Item Value Reference Range Comments TOTAL PROTEIN (BEAKER) (test zdes=304) 6.4 gm/dL 6.0-8.3 ALBUMIN (BEAKER) (test hifd=9219) 3.9 g/dL 3.5-5.0 BILIRUBIN TOTAL (BEAKER) (test gxtg=661) 0.5 mg/dL 0.2-1.2 BILIRUBIN DIRECT (BEAKER) (test ohql=593) 0.2 mg/dL 0.1-0.5 ALKALINE PHOSPHATASE (BEAKER) (test napy=227) 78 U/L 40-150 AST (SGOT) (BEAKER) (test gbbl=407) 14 U/L 5-34 ALT (SGPT) (BEAKER) (test giju=946) 12 U/L 6-55 LACTIC ACID, VENOUS, WHOLE [id number] 12:08:00 Test Item Value Reference Range Comments LACTATE BLOOD VENOUS (2) 0.8 mmol/L 0.5-2.2 Specimen moderately hemolyzed (BEAKER) (test xlcs=0812) URINALYSIS W/ REFLEX URINE [id number] 11:10:00 Test Item Value Reference Range Comments COLOR (BEAKER) (test jxja=361) Light Yellow CLARITY (BEAKER) (test wgen=545) Clear SPECIFIC GRAVITY UA (BEAKER) (test dbvk=747) 1.020 1.001-1.035 PH UA (BEAKER) (test ifpq=214) 6.5 5.0-8.0 PROTEIN UA (BEAKER) (test rsnd=368) Negative Negative GLUCOSE UA (BEAKER) (test ebnw=821) Negative Negative KETONES UA (BEAKER) (test frlj=016) Negative Negative BILIRUBIN UA (BEAKER) (test vesz=834) Negative Negative BLOOD UA (BEAKER) (test zlni=936) Negative Negative NITRITE UA (BEAKER) (test jyvb=231) Negative Negative LEUKOCYTE ESTERASE UA (BEAKER) (test wpgx=579) Negative Negative UROBILINOGEN UA (BEAKER) (test edom=383) 0.2 mg/dL 0.2-1.0 RBC UA (BEAKER) (test zqmr=375) < /HPF WBC UA (BEAKER) (test gsxf=713) 0 /HPF SQUAMOUS EPITHELIAL (BEAKER) (test ejzu=659) < /HPF SOURCE(BEAKER) (test raeu=9291) CT ABDOMEN/PELVIS [id number] 14:26:00[address] [id number] IMAGING REPORTPatient Name : Manuel DEL TORO of Service: [id number]: 45 Sex: F Order #: [id number] Room: ERSDOB: 1970 X-Ray Number: [id number] Record Number: [id number] Hospital Number: [id number] Physician: KISHAN MUNOZ - Ordering Physician: HERNANDEZ MONTEMAYOR ABDOMEN AND PELVIS WITH [...] with the previouscholecystectomy.There are postoperative changes seen inthe right lower quadrant near thececum. Fluid and [...] 2:23 PMLegally authenticated by TIFFANIE Syed 2016-07-26 14:23:48CT ABDOMEN/ PELVIS [id number] 02:49:00[place] [id number] IMAGING REPORTPatient Name: Manuel DEL TORO of Service: [id number]: 45 Sex: F Order #: [id number] Room: [facility] A 2NEDOB: 1970 X-Ray Number: [id number] Record Number: [id number] Hospital Number: [id number] Physician: BLAKE ALLEN - Ordering Physician: AURORA LOWERY abdomen and pelvis without IV contrast, with GI contrast 1842 hours07/16/2016HISTORY: Abdominal pain with nausea, history of Crohn's disease, multipleprior surgeriesCOMPARISON: NoneFINDINGS: Evaluation is limited and difficult.Minimal scattered free fluid is present. There may be mildscattered/diffuse mesenteric edema. There is no free air. There is no bowelobstruction. Mild/moderate colonic wall thickening ispresent, mainlyinvolving descending and sigmoid colon, suggesting colitis. [...] 2:47 AMLegally authenticated by MARTINEZ VALDEZ 2016-07-17 02:47:19ABDOMEN 2 [id number] 12:14:[address] [id number] IMAGING REPORTPatient Name: Manuel DEL TORO of Service: [id number]: 45 Sex: F Order #: [id number] Room: [facility]: 1970 X-Ray Number: [id number] Record Number: [id number] Hospital Number: [id number] Physician: Austin TEJEDA Physician: Elvis GARCIA 2 views 2016 at11:40 AM.History: 45-year-old female. Abdominal pain. Left upper quadrant pain.History of Crohn's disease. Previous cholecystectomy, hysterectomy andintestinal surgery.Comparison: No comparison exam isavailable.Findings:A total of 4 images are submitted.There are cholecystectomy clips in the right upper quadrant. There is anintrathecal catheter with a reservoir projecting over the right ilium.There is very little feces in the colon. There are several loops ofair-filled, mildly prominent small bowelwith a few air-fluid levels. Thisis probably related to ileus but recommend follow-up to rule out adeveloping obstruction. There are calcifications but they are felt to bevascular. The regional skeleton is intact. The lung bases are clear.Impression:1. Probable ileus.2. However, recommend follow-up asclinically warranted to rule out adeveloping obstruction.Electronically Signed By: Raymond James M.D., 07/15/2016 12:12 PMLegally authenticated by RAFA GALVAN 2016-07-15 12:12:28
[2018-07-14 17:51] LABS: Absolute Lymphocytes (CBC) 1.1 K/uL (0.7-4.9); Absolute Monocytes 0.1 K/uL (0.1-1.3); Absolute Neutrophil 5.1 K/uL (1.8-8.0); Eosinophils % 0.1 % (0-4.4); Lymphocytes % 17.8 % (15.3-44.8); MPV 7.6 fL (7.6-11.3); Monocytes % 1.6 % (3.3-12.3); RBC Red Blood Cell Count 4.31 M/uL (3.86-4.86)
[2018-07-14 18:05] LABS: ALT/SGPT 33 U/L (12-78); AST/SGOT 9 U/L (15-37); Albumin 3.6 g/dL (3.4-5.0); Alkaline Phosphatase 81 U/L (45-117); BUN Blood Urea Nitrogen 11 mg/dL (7-18); Bicarbonate 30 mmol/L (21-32); Bilirubin Direct < 0.1 mg/dL (0-0.2); Bilirubin Total 0.3 mg/dL (0.2-1.0); Glucose Level 117 mg/dL (74-106); Lipase 127 U/L (73-393); Potassium 3.9 mmol/L (3.5-5.1); Protein, Total 6.6 g/dL (6.4-8.2); Sodium Level 144 mmol/L (136-145)
[2018-07-14] MEDS ORDERED: ONDANSETRON 4 MG/2 ML VIAL ONE (18:12)
[2018-07-14] MEDS ORDERED: MORPHINE 4 MG/ML SYR ONE ×2 (18:12→20:17)
[2018-07-14 18:53] LABS: Urine Bacteria NONE SEEN /HPF (<20); Urine Culture Reflex Order NOT NEEDED; Urine RBC NONE SEEN /HPF (NONE SEEN)
--- NOTE | 2018-07-14 19:45 | RAD REPORT ---
EXAM DESCRIPTION: CTAbdomen Pelvis W Contrast - 07/14/2018 7:36 pm CLINICAL HISTORY: Abdominal pain. ABD PAIN COMPARISON: Abdomen Pelvis W Contrast dated 07/06/2018; Abdomen Pelvis W Contrast dated 06/13/2018; Abdomen Pelvis W Contrast dated 04/02/2018; Abdomen Pelvis W Contrast dated 02/10/2017 TECHNIQUE: Biphasic CT imaging of the abdomen and pelvis was performed with 100 ml non-ionic IV cont rast. All CT scans are performed using dose optimization technique as appropriate and may include automated exposure control or mA/KV adjustment according to patient size. FINDINGS: The lung bases are clear.Cholecystectomy clips. The liver, spleen, pancreas, adrenal are within normal limits. Bilateral renal cysts are present, bear ign in appearance, the largest on the left measuring 3.5 cm. Mild biliary tree dilatation is noted, l ikely related to prior cholecystectomy. No bowel obstruction, free air, free fluid or abscess. The appendix is normal. No evidence of signi ficant lymphadenopathy. Neurostimulator noted. No suspicious bony findings. IMPRESSION: No acute intra-abdominal or pelvic finding.
[2018-07-14 19:55] LABS: Urine Blood NEGATIVE (NEG); Urine Glucose NEGATIVE (NEG); Urine Protein NEGATIVE (NEG)
--- NOTE | 2018-07-14 19:55 | EDPHYS ---
Physician Documentation [facility] Name: Angela Rodriguez Age: 47 yrs Sex: Female : 1970 Arrival Date: 07/14/2018 Time: 15:40 Bed 24 Private MD: out of town, doctor ED Physician Richy Mathew HPI: 07/14 18:30 This 47 yrs old Female presents to ER via Ambulatory with complaints of pm1 Abdominal Pain, Crohns. 18:30 The patient presents with abdominal pain that is diffuse. Onset: The symptoms/episode pm1 began/occurred 2 day(s) ago. The symptoms do not radiate. Associated signs and symptoms: Pertinent positives: dysuria, nausea, Pertinent negatives: blood in stools, chest pain, diarrhea, fever, shortness of breath, vomiting. The symptoms are described as achy. Modifying factors: The symptoms are alleviated by nothing, the symptoms are aggravated by nothing. Severity of pain: in the emergency department the pain is actually worse. The patient has experienced similar episodes in the past, multiple times. Patient currently taking steroid therapy for crohns disease. 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 - Social history:: Smoking status: Patient/guardian denies using tobacco. - Ebola Screening: : No symptoms or risks identified at this time. ROS: 19:51 Constitutional: Negative for fever, chills, and weight loss, Eyes: Negative for injury, pm1 pain, redness, and discharge, ENT: Negative for injury, pain, and discharge, Neck: Negative for injury, pain, and swelling, Cardiovascular: Negative for chest pain, palpitations, and edema, Respiratory: Negative for shortness of breath, cough, wheezing, and pleuritic chest pain. 19:51 Back: Negative for injury and pain, : Negative for injury, bleeding, discharge, and swelling, MS/Extremity: Negative for injury and deformity, Skin: Negative for injury, rash, and discoloration, Neuro: Negative for headache, weakness, numbness, tingling, and seizure. 19:51 Abdomen/GI: Positive for abdominal pain, nausea, Negative for vomiting, diarrhea, constipation. Exam: 19:51 Constitutional: This is a well developed, well nourished patient who is awake, alert, pm1 and in no acute distress. Head/Face: Normocephalic, atraumatic. Eyes: Pupils equal round and reactive to light, extra-ocular motions intact. Lids and lashes normal. Conjunctiva and sclera are non-icteric and not injected. Cornea within normal limits. Periorbital areas with no swelling, redness, or edema. ENT: Nares patent. No nasal discharge, no septal abnormalities noted. Tympanic membranes are normal and external auditory canals are clear. Oropharynx with no redness, swelling, or masses, exudates, or evidence of obstruction, uvula midline. Mucous membranes moist. Neck: Trachea midline, no thyromegaly or masses palpated, and no cervical lymphadenopathy. Supple, full range of motion without nuchal rigidity, or vertebral point tenderness. No Meningismus. Chest/axilla: Normal chest wall appearance and motion. Nontender with no deformity. No lesions are appreciated. Cardiovascular: Regular rate and rhythm with a normal S1 and S2. No gallops, murmurs, or rubs. Normal PMI, no JVD. No pulse deficits. Respiratory: Lungs have equal breath sounds bilaterally, clear to auscultation and percussion. No rales, rhonchi or wheezes noted. No increased work of breathing, no retractions or nasal flaring. 19:51 Back: No spinal tenderness. No costovertebral tenderness. Full range of motion. Skin: Warm, dry with normal turgor. Normal color with no rashes, no lesions, and no evidence of cellulitis. MS/ Extremity: Pulses equal, no cyanosis. Neurovascular intact. Full, normal range of motion. 19:51 Abdomen/GI: Inspection: abdomen appears normal, Bowel sounds: normal, Palpation: abdomen is soft and non-tender, RLQ pain pump present. 19:51 Neuro: Orientation: is normal, Motor: is normal, moves all fours, Gait: is steady, at a normal pace, without difficulty. Vital Signs: 16:32 BP 120 / 87; Pulse 51; Resp 18 S; Temp 98.8(TE); Pulse Ox 98% on R/A; Weight 61.23 kg aa5 (R); Height 5 ft. 2 in. (157.48 cm) (R); Pain 10/10; 18:03 BP 134 / 88; Pulse 43; Resp 18; Pulse Ox 96% on R/A; dm5 18:15 BP 133 / 72; Pulse 46; Resp 18; Pulse Ox 95% on R/A; dm5 20:31 BP 112 / 90; Pulse 48; Resp 16; Pulse Ox 98% on R/A; la1 16:32 Body Mass Index 24.69 (61.23 kg, 157.48 cm) aa5 MDM: 17:10 Patient medically screened. pm1 19:50 Data reviewed: vital signs. Data interpreted: Pulse oximetry: on room air is 95 %. pm1 Interpretation: normal. Counseling: I had a detailed discussion with the patient and/or guardian regarding: the historical points, exam findings, and any diagnostic results supporting the discharge/admit diagnosis, lab results, radiology results, the need for outpatient follow up, to return to the emergency department if symptoms worsen or persist or if there are any questions or concerns that arise at home. 07/14 17:08 Order name: Basic Metabolic Panel pm1 07/14 17:08 Order name: CBC with Diff; Complete Time: 18:17 pm1 07/14 17:08 Order name: Creatinine for Radiology; Complete Time: 18:17 pm1 07/14 17:08 Order name: Hepatic Function pm1 07/14 17:08 Order name: Lipase pm1 07/14 17:09 Order name: Basic Metabolic Panel; Complete Time: 18:17 EDMS 07/14 17:08 Order name: CT Abd/Pelvis - W/Contrast: PO and IV contrast; Complete Time: 19:50 pm1 07/14 17:09 Order name: Liver (Hepatic) Function; Complete Time: 18:17 EDMS 07/14 17:09 Order name: Lipase; Complete Time: 18:17 EDMS 07/14 17:19 Order name: Urine Microscopic Only; Complete Time: 19:06 pm1 07/14 17:55 Order name: Urine Dipstick--Ancillary (enter results); Complete Time: 19:58 eb 07/14 17:55 Order name: Urine --Ancillary (enter results); Complete Time: 19:58 eb 07/14 17:08 Order name: IV Saline Lock; Complete Time: 18:24 pm1 07/14 17:08 Order name: Labs collected and sent; Complete Time: 18:24 pm1 07/14 17:19 Order name: Urine Dipstick-Ancillary (obtain specimen); Complete Time: 18:24 pm1 Administered Medications: 18:08 Drug: morphine 4 mg Route: IVP; Site: left upper arm; dm5 20:01 Follow up: Response: No adverse reaction; Pain is decreased la1 18:10 Drug: Zofran 4 mg Route: IVP; Site: left upper arm; dm5 20:01 Follow up: Response: No adverse reaction la1 20:15 Drug: morphine 4 mg Route: IVP; Site: left forearm; la1 20:15 Follow up: Response: No adverse reaction; Pain is decreased la1 20:15 Drug: Rocephin 1 grams Route: IV; Rate: calculated rate; Site: left forearm; la1 20:31 Follow up: IV Status: Completed infusion la1 Disposition: 07/15 09:57 Co-signature as Attending Physician, Richy Mathew MD. rn Disposition: 07/14/18 19:54 Discharged to Home. Impression: Unspecified abdominal pain, Urinary tract infection, site not specified. - Condition is Stable. - Discharge Instructions: Abdominal Pain, Adult, Urinary Tract Infection, Adult. - Prescriptions for Bactrim DS 800- 160 mg Oral Tablet - take 1 tablet by ORAL route every 12 hours for 10 days; 20 tablet. - Medication Reconciliation Form, Thank You Letter, Antibiotic Education form. - Follow up: Emergency Department; When: As needed; Reason: Worsening of condition. Follow up: Private Physician; When: 2 - 3 days; Reason: Recheck today's complaints, Continuance of care, Re-evaluation by your physician. - Problem is new. - Symptoms have improved. Signatures: Dispatcher [employer] Evonne Ye RN RN dm5 Richy Mathew MD MD rn Calderon, Audri, RN RN aa5 Jaxon Selby RN RN la1 Sergio Pablo, WASH CREW PERSON WASH CREW PERSON pm1 Corrections: (The following items were deleted from the chart) 07/14 20:07 19:54 07/14/2018 19:54 Discharged to Home. Impression: Unspecified abdominal pain. pm1 Condition is Stable. Forms are Medication Reconciliation Form, Thank You Letter, Antibiotic Education, Prescription Opioid Use. Follow up: Emergency Department; When: As needed; Reason: Worsening of condition. Follow up: Private Physician; When: 2 - 3 days; Reason: Recheck today's complaints, Continuance of care, Re-evaluation by your physician. Problem is new. Symptoms have improved. pm1 20:32 20:07 07/14/2018 19:54 Discharged to Home. Impression: Unspecified abdominal pain; la1 Urinary tract infection, site not specified. Condition is Stable. Discharge Instructions: Abdominal Pain, Adult, Urinary Tract Infection, Adult. Prescriptions for Bactrim DS 800-160 mg Oral Tablet - take 1 tablet by ORAL route every 12 hours for 10 days; 20 tablet. and Forms are Medication Reconciliation Form, Thank You Letter, Antibiotic Education. Follow up: Emergency Department; When: As needed; Reason: Worsening of condition. Follow up: Private Physician; When: 2 - 3 days; Reason: Recheck today's complaints, Continuance of care, Re-evaluation by your physician. Problem is new. Symptoms have improved. pm1
--- NOTE | 2018-07-14 19:55 | ER ---
Nurse's Notes [facility] Name: Angela Rodriguez Age: 47 yrs Sex: Female : 1970 Arrival Date: 07/14/2018 Time: 15:40 Bed 24 Private MD: out of town, doctor Diagnosis: Unspecified abdominal pain;Urinary tract infection, site not specified Presentation: 07/14 16:30 Presenting complaint: Patient states: "I was transferred to [facility] in [place] and I aa5 have a bowel obstruction and I am having surgery in about 2 weeks but the pain is just getting worse so they told me to come back here". Pt reports nausea, denies vomiting. Transition of care: patient was not received from another setting of care. Onset of symptoms was June 2018. Risk Assessment: Do you want to hurt yourself or someone else? Patient reports no desire to harm self or others. Care prior to arrival: None. 16:30 Method Of Arrival: Ambulatory aa5 16:30 Acuity: LIZZY 3 aa5 20:31 Initial Sepsis Screen: Does the patient meet any 2 criteria? No. Patient's initial la1 sepsis screen is negative. Does the patient have a suspected source of infection? No. Patient's initial sepsis screen is negative. 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 - Social history:: Smoking status: Patient/guardian denies using tobacco. - Ebola Screening: : No symptoms or risks identified at this time. Screenin:20 Abuse screen: Denies threats or abuse. Denies injuries from another. Nutritional dm5 screening: No deficits noted. Tuberculosis screening: No symptoms or risk factors identified. Fall Risk None identified. Assessment: 17:20 General: Appears in no apparent distress. Behavior is calm, cooperative. dm5 17:20 Pain: Complains of pain in abdomen Pain currently is 7 out of 10 on a pain scale. dm5 Neuro: Level of Consciousness is awake, alert, obeys commands, Oriented to person, place, time. Cardiovascular: Reports None. Respiratory: Airway is patent Respiratory effort is even, unlabored, relaxed, Respiratory pattern is regular, symmetrical. GI: Bowel sounds present X 4 quads. Abd is soft Abdomen is tender to palpation Reports lower abdominal pain, upper abdominal pain, nausea. Derm: Skin is pink, warm \\T\\ dry. 19:56 Reassessment: Patient appears in no apparent distress at this time. No changes from la1 previously documented assessment. Patient and/or family updated on plan of care and expected duration. Pain level reassessed. Patient is alert, oriented x 3, equal unlabored respirations, skin warm/dry/pink. Vital Signs: 16:32 BP 120 / 87; Pulse 51; Resp 18 S; Temp 98.8(TE); Pulse Ox 98% on R/A; Weight 61.23 kg aa5 (R); Height 5 ft. 2 in. (157.48 cm) (R); Pain 10/10; 18:03 BP 134 / 88; Pulse 43; Resp 18; Pulse Ox 96% on R/A; dm5 18:15 BP 133 / 72; Pulse 46; Resp 18; Pulse Ox 95% on R/A; dm5 20:31 BP 112 / 90; Pulse 48; Resp 16; Pulse Ox 98% on R/A; la1 16:32 Body Mass Index 24.69 (61.23 kg, 157.48 cm) aa5 ED Course: 15:40 Patient arrived in ED. mr 15:42 out of town, doctor is Private Physician. mr 16:30 Arm band placed on. aa5 16:32 Triage completed. aa5 17:05 Sergio Pablo NP is PHCP. pm1 17:05 Richy Mathew MD is Attending Physician. pm1 17:20 Patient has correct armband on for positive identification. dm5 17:20 No provider procedures requiring assistance completed. dm5 17:28 Initial lab(s) drawn, by me, sent to lab. Inserted saline lock: 20 gauge in left dm5 forearm, using aseptic technique. Blood collected. 17:33 Evonne Castro, RN is Primary Nurse. dm5 18:25 Basic Metabolic Panel Sent. dm5 18:25 Lipase Sent. dm5 18:25 Hepatic Function Sent. dm5 19:35 CT completed. Patient tolerated procedure well. Patient moved back from CT. mw3 19:36 CT Abd/Pelvis - W/Contrast: PO and IV contrast In Process Unspecified. EDMS 20:31 IV discontinued, intact, bleeding controlled, No redness/swelling at site. Pressure la1 dressing applied. Administered Medications: 18:08 Drug: morphine 4 mg Route: IVP; Site: left upper arm; dm5 20:01 Follow up: Response: No adverse reaction; Pain is decreased la1 18:10 Drug: Zofran 4 mg Route: IVP; Site: left upper arm; dm5 20:01 Follow up: Response: No adverse reaction la1 20:15 Drug: morphine 4 mg Route: IVP; Site: left forearm; la1 20:15 Follow up: Response: No adverse reaction; Pain is decreased la1 20:15 Drug: Rocephin 1 grams Route: IV; Rate: calculated rate; Site: left forearm; la1 20:31 Follow up: IV Status: Completed infusion la1 Outcome: 19:54 Discharge ordered by MD. pm1 20:30 Discharged to home ambulatory. la1 20:30 Condition: good 20:30 Discharge instructions given to patient, family, Instructed on discharge instructions, follow up and referral plans. medication usage, Demonstrated understanding of instructions, follow-up care, medications. 20:32 Patient left the ED. la1 Signatures: Dispatcher [employer] EDMS Evonne Castro RN RN dm5 Roopa Medeiros mr BrownAraceli rivera RN RN aa5 Jaxon Selby RN RN la1 Sergio Pablo NP INFORMATION TECHNOLOGY MANAGER pm1 Karishma Mehta mw3 Corrections: (The following items were deleted from the chart) 18:30 18:29 General: Appears in no apparent distress. dm5 dm5 20:32 20:31 BP 112 / 90; Pulse 84bpm; Resp 16bpm; Pulse Ox 98% RA; la1 la1
[2018-07-14] MEDS ORDERED: CEFTRIAXONE/SWI 1gm 1 GM/10 ML SYR ONE (20:17)
[2018-07-14 20:49] VITALS: TEMP 98.8
[2018-07-14 20:53] VITALS: BP 112/90; O2SAT 98
== END 2018-07-14 20:32 | disposition home or self-care (01) ==
LOC: ER 15:39
DX: N39.0 Urinary tract infection, site not specified (principal); Z88.3 Allergy status to other anti-infective agents; Z88.8 Allergy status to other drugs, medicaments and biological substances
CPT/HCPCS: 85025; 80048; 36415; 81025; 80076; 83690; 74177; 99284; Q9967; J0696; J2405; 81003; 81015

== ENCOUNTER 2018-07-18 19:26 | Emergency (ER) | payer OTHER ==
--- OUTSIDE RECORDS SUMMARY | 2018-07-18 19:28 | XMS REPORT | Clinical Summary ---
:1970 Author Organization [facility] Address [address] [place] [address] Care Team Providers Name Role Phone Eryn [...] Internal Eryn Wall Small bowel 08/18/2017 Raz Mcuhgh MD obstruction (Primary Dx) 07/18/2017 - Hospital Encounter General Internal Eryn Wall Colitis presumed 07/21/2017 Raz Mchugh MD infectious (Primary Dx) after 07/17/2017 Social History Tobacco Use Types Packs/Day Years [...] INFLUENZA VACCINE 11/29/2017 Implants Implanted Type Area Boring Machine Feeder Device Identifier Shelf Expiration Model / Date [...] procedure are in the results section. after 07/17/2017 Results Estimated GFR (08/22/2017 5:35 AM CDT)Only the most recent of8 resultswithin the time period is included. GFR Non Af Amer >90 mL/min/1.73 m2 [facility] DEPARTMENT OF PATHOLOGY AND GENOMIC MEDICINE GFR Af Amer >90 mL/min/1.73 m2 [facility] DEPARTMENT OF Comment: PATHOLOGY AND [...] specimen Performing Organization Address City/State/Zipcode Phone Number [facility] DEPARTMENT OF PATHOLOGY [address] [place] [address] AND GENOMIC MEDICINE CBC with platelet and differential (08/22/2017 5:35 AM CDT)Only the most recent of6 resultswithin the time period is included. WBC 7.1 4.5 - 11.0 k/uL [facility] DEPARTMENT OF PATHOLOGY AND GENOMIC MEDICINE RBC 3.78 (L) 4.20 - 5.50 m/uL [facility] DEPARTMENT OF PATHOLOGY AND GENOMIC MEDICINE HGB 11.9 (L) 12.0 - 16.0 g/dL [facility] DEPARTMENT OF PATHOLOGY AND GENOMIC MEDICINE HCT 35.9 (L) 37.0 - 47.0 % [facility] DEPARTMENT OF PATHOLOGY AND GENOMIC MEDICINE MCV 95.0 82.0 - 100.0 fL [facility] DEPARTMENT OF PATHOLOGY AND GENOMIC MEDICINE MCH 31.5 27.0 - 34.0 pg [facility] DEPARTMENT OF PATHOLOGY AND GENOMIC MEDICINE MCHC 33.1 31.0 - 37.0 g/dL [facility] DEPARTMENT OF PATHOLOGY AND GENOMIC MEDICINE RDW - SD 43.0 37.0 - 55.0 fL [facility] DEPARTMENT OF PATHOLOGY AND GENOMIC MEDICINE MPV 9.3 6.9 - 11.0 fL [facility] DEPARTMENT OF PATHOLOGY AND GENOMIC MEDICINE Platelet count 230 150 - 400 K/uL [facility] DEPARTMENT OF PATHOLOGY AND GENOMIC MEDICINE Nucleated RBC 0.00 /100 WBC [facility] DEPARTMENT OF PATHOLOGY AND GENOMIC MEDICINE Neutrophils 77.2 (H) 39.0 - 69.0 % [facility] DEPARTMENT OF PATHOLOGY AND GENOMIC MEDICINE Lymphocytes 18.6 (L) 25.0 - 45.0 % [facility] DEPARTMENT OF PATHOLOGY AND GENOMIC MEDICINE Monocytes 3.8 0.0 - 10.0 % [facility] DEPARTMENT OF PATHOLOGY AND GENOMIC MEDICINE Eosinophils 0.0 0.0 - 5.0 % [facility] DEPARTMENT OF PATHOLOGY AND GENOMIC MEDICINE Basophils 0.1 0.0 - 1.0 % [facility] DEPARTMENT OF PATHOLOGY AND GENOMIC MEDICINE Immature granulocytes 0.3 0.0 - 1.0 % [facility] DEPARTMENT OF PATHOLOGY AND GENOMIC MEDICINE Specimen Blood Performing Organization Address City/[facility]/Zipcode Phone Number [facility] DEPARTMENT OF PATHOLOGY [id number] [place] [address]. [place] [address] AND bttn [facility] Magnesium level (08/22/2017 5:35 AM CDT)Only the most recent of3 resultswithin the time period is included. Magnesium 1.8 1.6 - 2.6 mg/dL [facility] DEPARTMENT OF PATHOLOGY AND GENOMIC MEDICINE Specimen Plasma specimen Performing Organization Address [facility] Cent[facility]ode Phone Number [facility] DEPARTMENT OF PATHOLOGY [address] [place] [address]. [place] [address] AND bttn [facility] Comprehensive metabolic panel (08/22/2017 5:35 AM CDT)Only the most recent of4 resultswithin the time period is included. Sodium 141 135 - 148 mEq/L [facility] DEPARTMENT OF PATHOLOGY AND GENOMIC MEDICINE Potassium 4.2 3.5 - 5.0 mEq/L [facility] DEPARTMENT OF PATHOLOGY AND GENOMIC MEDICINE Chloride 101 98 - 112 mEq/L [facility] DEPARTMENT OF PATHOLOGY AND GENOMIC MEDICINE CO2 26 24 - 31 mEq/L [facility] DEPARTMENT OF PATHOLOGY AND GENOMIC MEDICINE Anion gap 14 7 - 15 mEq/L [facility] DEPARTMENT OF Comment: PATHOLOGY AND GENOMIC Starting from July , anion gap calculation MEDICINE no longer incorporates potassium. Please note the change. BUN 8 6 - 20 mg/dL [facility] DEPARTMENT OF PATHOLOGY AND GENOMIC MEDICINE Creatinine 0.6 0.5 - 0.9 mg/dL [facility] DEPARTMENT OF PATHOLOGY AND GENOMIC MEDICINE Glucose 119 (H) 65 - 99 mg/dL [facility] DEPARTMENT OF PATHOLOGY AND GENOMIC MEDICINE Calcium 8.9 8.3 - 10.2 mg/dL [facility] DEPARTMENT OF PATHOLOGY AND GENOMIC MEDICINE Protein 6.2 (L) 6.3 - 8.3 g/dL [facility] DEPARTMENT OF PATHOLOGY AND GENOMIC MEDICINE Albumin 3.6 3.5 - 5.0 g/dL [facility] DEPARTMENT OF PATHOLOGY AND GENOMIC MEDICINE A/G ratio 1.4 0.7 - 3.8 [facility] DEPARTMENT OF PATHOLOGY AND GENOMIC MEDICINE Alkaline phosphatase 63 35 - 104 U/L [facility] DEPARTMENT OF PATHOLOGY AND GENOMIC MEDICINE AST 22 10 - 35 U/L [facility] DEPARTMENT OF PATHOLOGY AND GENOMIC MEDICINE ALT 44 5 - 50 U/L [facility] DEPARTMENT OF PATHOLOGY AND GENOMIC MEDICINE Total bilirubin <0.2 0.2 - 1.2 mg/dL [facility] DEPARTMENT OF PATHOLOGY AND GENOMIC MEDICINE Specimen Plasma specimen Performing Organization Address [facility] Centercode Phone Number [facility] DEPARTMENT OF PATHOLOGY [address] [place] [address] AND [facility] Sedimentation rate (08/21/2017 4:10 AM CDT)Only the most recent of2 resultswithin the time period is included. Sedimentation rate 21 (H) 0 - 20 mm/hr [facility] DEPARTMENT OF PATHOLOGY AND GENOMIC MEDICINE Specimen Blood Performing Organization Address [facility] Cent[facility]oky Phone Number [facility] DEPARTMENT OF PATHOLOGY [address] [place] [address] AND [facility] CRP high sensitivity (08/21/2017 4:10 AM CDT) CRP, high sensitivity 0.47 mg/L [facility] DEPARTMENT OF Comment: PATHOLOGY AND [facility] Please note this test is different from [...] infection Specimen Plasma specimen Performing Organization Address [facility] Phone Number [facility] DEPARTMENT OF PATHOLOGY AND [address] [place] [id number] [place] [address] Basic metabolic panel (08/21/2017 4:10 AM CDT)Only the most recent of4 resultswithin the time period is included. Sodium 143 135 - 148 mEq/L [facility] DEPARTMENT OF PATHOLOGY AND GENOMIC MEDICINE Potassium 3.8 3.5 - 5.0 mEq/L [facility] DEPARTMENT OF PATHOLOGY AND GENOMIC MEDICINE Chloride 106 98 - 112 mEq/L [facility] DEPARTMENT OF PATHOLOGY AND GENOMIC MEDICINE CO2 26 24 - 31 mEq/L [facility] DEPARTMENT OF PATHOLOGY AND GENOMIC MEDICINE Anion gap 11 7 - 15 mEq/L [facility] DEPARTMENT OF Comment: PATHOLOGY AND GENOMIC Starting from July , anion gap calculation MEDICINE no longer incorporates potassium. Please note the change. BUN <4 (L) 6 - 20 mg/dL [facility] DEPARTMENT OF PATHOLOGY AND GENOMIC MEDICINE Creatinine 0.6 0.5 - 0.9 mg/dL [facility] DEPARTMENT OF PATHOLOGY AND GENOMIC MEDICINE Glucose 105 (H) 65 - 99 mg/dL [facility] DEPARTMENT OF PATHOLOGY AND GENOMIC MEDICINE Calcium 9.1 8.3 - 10.2 mg/dL [facility] DEPARTMENT OF PATHOLOGY AND GENOMIC MEDICINE Specimen Plasma specimen Performing Organization Address City/[facility]/Zipcode Phone Number [facility] DEPARTMENT OF PATHOLOGY [address] [place] [address] AND [facility] Occult blood, stool (08/17/2017 9:30 AM CDT) Occult blood, stool Negative for occult blood. [facility] DEPARTMENT OF Comment: PATHOLOGY AND GENOMIC Specimen Information MEDICINE Specimen Source: Stool Specimen Site: Nonpreserved Specimen Stool - Nonpreserved Performing Organization Address [facility] Centercode Phone Number [facility] DEPARTMENT OF PATHOLOGY [address] [place] [address] AND [facility] XR Abdomen 1 Vw (08/16/2017 12:25 PM CDT) Narrative Performed At EXAMINATION:XR ABDOMEN 1 VW [facility] CLINICAL HISTORY:Bowel obstruction COMPARISON:None. IMPRESSION: Loops of dilated small bowel compatible with an ileus versus partial small bowel obstruction A spinal stimulator pump projects over the right lower quadrant The gallbladder has been removed Bony structures are within normal limits [id number] Procedure Note Interface, Radiology Results Incoming - 08/16/2017 1:04 PM CDT EXAMINATION: XR ABDOMEN 1 VW CLINICAL HISTORY: Bowel obstruction COMPARISON: None. IMPRESSION: Loops of dilated small bowel compatible with an ileus versus partial small bowel obstruction A spinal stimulator pump projects over the right lower quadrant The gallbladder has been removed Bony structures are within normal limits [id number] Performing Organization Address City/[facility]/Zipcode Phone Number [facility] [address] [place] [address] Gastrointestinal panel (08/15/2017 3:40 AM CDT) Gastrointestinal panel Negative for all pathogens tested: [facility] DEPARTMENT OF Negative for Salmonella PATHOLOGY AND [...] Specimen Stool - Nonpreserved Performing Organization Address [facility] Phone Number [facility] DEPARTMENT OF PATHOLOGY AND [address] [place], [place] [phone] bttn MEDICINE C difficile toxin (07/19/2017 7:50 PM CDT) Clostridium difficile No Clostridium difficle toxin present [facility] DEPARTMENT OF toxin Comment: PATHOLOGY AND GENOMIC Specimen Information MEDICINE Specimen Source: Stool Specimen Site: Nonpreserved Specimen Stool - Nonpreserved Performing Organization Address [facility] Phone Number [facility] DEPARTMENT OF PATHOLOGY AND [address] [place] [id number] GENOMIC MEDICINE C-reactive protein (07/19/2017 10:08 AM CDT) CRP <0.30 0.00 - 0.50 mg/dL [facility] DEPARTMENT OF PATHOLOGY AND GENOMIC MEDICINE Specimen Plasma specimen Performing Organization Address [facility] Phone Number [facility] DEPARTMENT OF PATHOLOGY AND [address] [place] [address] GENOMIC MEDICINE after 07/17/2017 Insurance Payer Benefit Plan / Group Subscriber ID Type Phone Address MEDICARE MEDICARE PART A AND B xxxxxxxxxx Medicare [place], [place] MEDICAID MEDICAID xxxxxxxxx Medicaid
--- OUTSIDE RECORDS SUMMARY | 2018-07-18 19:28 | XMS REPORT | Clinical Summary ---
:1970 Author Organization [facility] Address [address] [place] [address] Care Team Providers Name Role Phone Elva [...] King Merchant MD 07/10/2018 Travel 07/06/2018 [place] [facility] [place] [facility] [place] 07/11/2018 Encounter Medicine Esa-Juan Crohn's disease of both small and large intestine with other complication (HCC); Donny, Smoker; Endometriosis; Mayte, Crohn's disease of small intestine with intestinal obstruction (HCC); MD Colby Other chronic pain Daxa Caballero MD Waheed, Umar, MD after 07/17/2017 Family History Medical History Relation Name Comments [...] Inhaled Oxygen Concentration 21% 07/06/2018 10:00 PM HUMAN PROJECTILE Weight 61.5 kg (135 lb 8 oz) 07/06/2018 8:11 AM HUMAN PROJECTILE Height - - Body Mass Index - [...] 3:30 Results for this AUTO DIFFERENTIAL AM [facility]ILE procedure are in the results section. BASIC METABOLIC PANEL Routine 07/07/2018 3:30 Results for this (7) AM [facility] PROJECTILE procedure are in the results section. CBC W/PLT COUNT & Routine 07/07/2018 3:30 Results for this AUTO DIFFERENTIAL AM [facility]JECTILE procedure are in the results section. STOOL PATH CHARGE Routine 07/06/2018 6:29 Results for this PM [facility]JECTILE procedure are in the results section. SHIGA TOXIN SCREEN Routine 07/06/2018 6:29 Results for this PM [facility]JECTILE procedure are in the results section. STOOL CULTURE + SHIGA Routine 07/06/2018 6:29 Results for this TOXIN PM [facility]JECTILE procedure are in the results section. C. DIFFICILE GDH Routine 07/06/2018 6:28 Results for this TOXIN PM [facility]JECTILE procedure are in the results section. XR CHEST 1 VIEW Routine 07/06/2018 1:20 Results for this PORTABLE/BEDSIDE PM [facility] procedure are in the results section. BLOOD CULTURE STAT 07/06/2018 11:14 Results for this AM [facility] PROJECTILE procedure are in the results section. LACTIC ACID, VENOUS Routine 07/06/2018 11:13 Results for this AM [facility]JECTILE procedure are in the results section. BLOOD CULTURE STAT 07/06/2018 10:50 Results for this AM [facility]AN PROJECTILE procedure are in the results section. CBC W/PLT COUNT & Routine 07/06/2018 10:49 Results for this AUTO DIFFERENTIAL AM [facility] PROJECTILE procedure are in the results section. PHOSPHORUS Routine 07/06/2018 10:49 Results for this AM [facility] PROJECTILE procedure are in the results section. MAGNESIUM Routine 07/06/2018 10:49 Results for this AM [facility] PROJECTILE procedure are in the results section. HEPATIC FUNCTION Routine 07/06/2018 10:49 Results for this PANEL AM [facility]ILE procedure are in the results section. BASIC METABOLIC PANEL Routine 07/06/2018 10:49 Results for this (7) AM [facility]JECTILE procedure are in the results section. CBC W/PLT COUNT & Routine 07/06/2018 10:49 Results for this AUTO DIFFERENTIAL AM [facility] PROJECTILE procedure are in the results section. RAPID DRUG SCREEN, STAT 07/06/2018 10:14 Results for this URINE AM [facility]JECTILE procedure are in the results section. URINALYSIS W/ REFLEX Routine 07/06/2018 10:14 Results for this URINE CULTURE AM [facility]UMAN PROJECTILE procedure are in the results section. after 07/17/2017 Results REPORT OF PROCEDURE - ENDOSCOPY URL (07/11/2018 9:45 AM CDT) Narrative Performed At Tissue Exam (07/11/2018 9:24 AM CDT) Case Report Surgical Pathology Report Case: [id number] [facility] Authorizing Provider:King Huynh MD Collected: 07/11/2018 0924 [facility] Ordering Location: [address] Received: 07/11/2018 1421 Service Pathologist: Linda Mullen MD Specimens: A) - Large Intestine, Colon - Right/Ascending, random biopsies B) - Large Intestine, Colon - Transverse, random biopsies C) - Large Intestine, Colon - Left/Descending, random biopsies D) - Large Intestine, Colon - Sigmoid, random biopsies DIAGNOSIS A. COLON, RIGHT/ASCENDING, RANDOM, BIOPSY: [facility] - COLONIC [place] WITH NO SIGNIFICANT DIAGNOSTIC ABNORMALITY [facility] (SEE MICROSCOPIC DESCRIPTION AND COMMENT) B. COLON, [...] AND COMMENT) Signing Pathologist Direct Phone Line: [phone] COMMENT Patient's history of Crohn's [facility] disease is noted per [facility] note dated 07/10/18. The current sampling shows no significant active or chronic colitis. This may represent complete histologic resolution following treatment. Clinical and endoscopic correlation is recommended. CPT Code(s) 04193R4 [facility] CLINICAL HISTORY Lower abdominal pain [facility] SPECIMEN SOURCE A. Random colon biopsy. B. [facility] Random transverse colon [facility] biopsy. C. Left random colon biopsy. D. Sigmoid random biopsy GROSS DESCRIPTION Specimen is received in four containers of formalin all labeled with the patient's information. [facility] Specimen A: Labeled "random right ascending colon [...] such as crypt architectural disturbances, basal p [facility] lasmacytosis, paneth cell metaplasia, pyloric gland metaplasia, granulomas are seen. No viral inclusions are seen. [facility] Also, no intraepithelial lymphocytosis or thickened subepithelial collagen band is seen. No features suggestive of amyloid deposition are noted. No dysplasia or carcinoma is present. Specimen Tissue - Large Intestine, Colon - Right/Ascending Performing Organization Address City/State/Zipcode Phone Number [facility] [address] [place] [address] CENTER CBC with platelet count + automated diff (07/11/2018 2:51 AM CDT)Only the most recent of6 resultswithin the time period is included. WBC 6.3 3.5 - 10.5 K/L [facility] RBC 3.92 (L) 3.93 - 5.22 M/L [facility] Hemoglobin 12.0 11.2 - 15.7 GM/DL [facility] Hematocrit 38.3 34.1 - 44.9 % [facility] MCV 97.7 (H) 79.4 - 94.8 fL [facility] MCH 30.6 25.6 - 32.2 pg [facility] MCHC 31.3 (L) 32.2 - 35.5 GM/DL [facility] RDW 13.5 11.7 - 14.4 % [facility] Platelets 220 150 - 450 K/CU MM [facility] MPV 9.6 9.4 - 12.3 fL [facility] nRBC 0 0 - 0 /100 WBC [facility] % Neutros 76 % [facility] % Lymphs 20 % [facility] % Monos 3 % [facility] % Eos 0 % [facility] % Baso 0 % [facility] # Neutros 4.80 1.56 - 6.13 K/L [facility] # Lymphs 1.26 1.18 - 3.74 K/L [facility] # Monos 0.20 (L) 0.24 - 0.36 K/L [facility] # Eos 0.00 (L) 0.04 - 0.36 K/L [facility] # Baso 0.01 0.01 - 0.08 K/L [facility] Immature Granulocytes-Relative 1 0 - 1 % [facility] Specimen Blood Performing Organization Address City/State/Zipcode Phone Number [facility] [address] [place] [address] [phone] CENTER Basic Metabolic Panel (07/11/2018 2:51 AM CDT)Only the most recent of6 resultswithin the time period is included. Sodium 145 136 - 145 meq/L [facility] Potassium 4.0 3.5 - 5.1 meq/L [facility] Chloride 111 (H) 98 - 107 meq/L [facility] CO2 27 22 - 29 meq/L [facility] BUN 2 (L) 7 - 21 mg/dL [facility] Creatinine 0.68 0.57 - 1.25 mg/dL [facility] Glucose 100 70 - 105 mg/dL [facility] Calcium 9.0 8.4 - 10.2 mg/dL [facility] EGFR 93Comment: ESTIMATED GFR IS mL/min/1.73 sq m [facility] NOT ACCURATE CREATININE [facility] CENTER CLEARANCE IN PREDICTING GLOMERULAR FILTRATION RATE. ESTIMATED GFR IS NOT APPLICABLE FOR DIALYSIS PATIENTS. Specimen Blood Performing Organization Address City/State/Zipcode Phone Number [facility] [address] [place] [address] [phone] abdomen & pelvis - enterography (07/08/2018 6:32 AM CDT) Narrative Performed At FINAL REPORT Attensa INDICATION: Abdominal pain and history of Crohn's [...] MD Report Verified Date/Time:07/08/2018 14:17:31 Reading Location: [facility] C013X Ortho Consult Reading Room Procedure Note [...] Report Verified Date/Time: 07/08/2018 14:17:31 Reading Location: [facility] B1 C013X Ortho Consult Reading Room Performing Organization Address City/State/Zipcode Phone Number [facility] STOOL PATH CHARGE (07/06/2018 6:29 PM HUMAN PROJECTILE) Pathogen exam charged Done [facility] Specimen Stool - Stool Performing Organization Address [facility] Phone Number [address] [address] [phone] [place] Shiga Toxin Screen (07/06/2018 6:29 PM HUMAN PROJECTILE) Shiga toxin 1 Not detected Not detected [facility] Shiga toxin 2 Not detected Not detected [facility] Specimen Stool - Stool Performing Organization Address [facility] Phone Number [address] [address] [phone] [place] Stool culture + Shiga toxin (07/06/2018 6:29 PM HUMAN PROJECTILE) Result No Salmonella, Shigella or [facility] Campylobacter [facility] Specimen Stool - Stool Performing Organization Address [facility] Phone Number [address] [address] [phone] [place] Clostridium difficile GDH Toxin (07/06/2018 6:28 PM HUMAN PROJECTILE) C. Difficle Toxin Negative Negative [facility] C. Difficile GDH Antigen NegativeComment: No Negative [facility] indication of Clostridium [facility] difficile infection and no colonization. Discontinue enteric isolation and therapy. Specimen Stool - Stool Narrative Performed At Testing performed by [employer] [facility] Assay.For GDH, published sensitivity of the assay is 98.7% compared to cytotoxicity testing.For Toxin AB, published sensitivity is 87.8% and specificity 99.4% compared to cytotoxicity testing. Verification of kit performance was done by the [facility] prior to clinical use. Performing Organization Address [facility] Cent[facility] Phone Number [address] [address] [place] XR chest 1 view portable / bedside (07/06/2018 1:20 PM HUMAN PROJECTILE) Narrative Performed At FINAL REPORT GE RIS TECHNIQUE: Frontal chest radiograph dated 07/06/2018. CLINICAL HISTORY: Fever COMPARISON STUDY: None IMPRESSION: Lungs are clear. No pleural effusion or pneumothorax. Cardiomediastinal silhouette is normal in size. No pulmonary edema. No fracture. Signed: Xiao Renteria MD Report Verified Date/Time:07/06/2018 14:21:04 Reading Location: [facility] Radiology Reading Room Procedure Note Interface, External Ris In - 07/06/2018 2:23 PM [facility]ILE FINAL REPORT TECHNIQUE: Frontal chest radiograph dated 07/06/2018. CLINICAL HISTORY: Fever COMPARISON STUDY: None IMPRESSION: Lungs are clear. No pleural effusion or pneumothorax. Cardiomediastinal silhouette is normal in size. No pulmonary edema. No fracture. Signed: Xiao Renteria MD Report Verified Date/Time: 07/06/2018 14:21:04 Reading Location: [facility] Radiology Reading Room Performing Organization Address [facility] Phone Number [facility] Blood culture (07/06/2018 11:14 AM HUMAN PROJECTILE)Only the most recent of2 resultswithin the time period is included. Result No growth in 5 days [facility] Specimen Blood - Arm, Right Performing Organization Address [facility] Phone Number [address] [address] CENTER Lactic acid, venous, whole blood (07/06/2018 11:13 AM HUMAN PROJECTILE) Lactate, Venous 0.8Comment: Specimen 0.5 - 2.2 mmol/L [facility] moderately hemolyzed [facility] Specimen Blood - Arm, Right Performing Organization Address [facility] Phone Number [address] [address] CENTER Phosphorus (07/06/2018 10:49 AM HUMAN PROJECTILE) Phosphorus 3.0 2.3 - 4.7 mg/dL [facility] Specimen Blood - Arm, Left Performing Organization Address [facility] Phone Number [address] [address] [phone] [place] Magnesium (07/06/2018 10:49 AM HUMAN PROJECTILE) Magnesium 2.1 1.6 - 2.6 mg/dL [facility] Specimen Blood - Arm, Left Performing Organization Address [facility] Phone Number [address] [address] [place] Hepatic function panel (07/06/2018 10:49 AM HUMAN PROJECTILE) Protein, Total 6.4 6.0 - 8.3 gm/dL [facility] Albumin 3.9 3.5 - 5.0 g/dL [facility] Total Bilirubin 0.5 0.2 - 1.2 mg/dL [facility] Bilirubin, Direct 0.2 0.1 - 0.5 mg/dL [facility] Alkaline Phosphatase 78 40 - 150 U/L [facility] AST 14 5 - 34 U/L [facility] ALT 12 6 - 55 U/L [facility] Specimen Blood - Arm, Left Performing Organization Address [facility] Phone Number [address] [address] [place] Urinalysis w/Microscopic + Reflex to Culture (07/06/2018 10:14 AM HUMAN PROJECTILE) Color, UA Light Yellow [facility] Clarity, UA Clear [facility] Specific [place], UA 1.020 1.001 - 1.035 [facility] pH, UA 6.5 5.0 - 8.0 [facility] Protein, UA Negative Negative [facility] Glucose, UA Negative Negative [facility] Ketones, UA Negative Negative [facility] Bilirubin, UA Negative Negative [facility] Blood, UA Negative Negative [facility] Nitrite, UA Negative Negative [facility] Leukocytes, UA Negative Negative [facility] Urobilinogen, UA 0.2 0.2 - 1.0 mg/dL [facility] RBC, UA <1 /HPF [facility] WBC, UA 0 /HPF [facility] Squam Epithel, UA <1 /HPF [facility] Specimen Source [facility] Specimen Urine - Urine, Voided Performing Organization Address City/State/Zipcode Phone Number [facility] [address] [place] [address] [place] Rapid drug screen, urine (07/06/2018 10:14 AM HUMAN PROJECTILE) Barbiturate Screen Negative Negative [facility] Benzodiazepine Screen Positive (A) Negative [facility] Cocaine (Metab.) Screen Negative Negative [facility] Methadone Screen Negative Negative [facility] Opiate Screen Positive (A) Negative [facility] Cannabinoid Screen Negative Negative [facility] Amph/Methamph Screen Negative Negative [facility] Phencyclidine Screen Negative Negative [facility] Oxycodone Screen Negative Negative [facility] Specimen Urine - Urine, Clean Catch Narrative Performed At [facility] CONC. Cocaine 300 ng/mL Syomufeissd25 ng/mL Dsalsoztqrkddd557 ng/mL Barbiturate 200 ng/mL Bmbcfzqevpvdt89 ng/mL Mtowqq743 ng/mL Methadone 300 ng/mL Amphetamine/ 1000 ng/mL Methamphetamine Oxycodone 300 ng/mL This assay provides an unconfirmed qualitative test result for the clinical management of patients in emergency situations. Chain of custody not maintained. Some femm-stt-zpqainu medications, as well as adulterants, may cause inaccurate results. Clinical correlation should be applied. A more comprehensive drug screen or confirmation of a detected drug may be performed upon request. Performing Organization Address City/State/Zipcode Phone Number [place] [phone] [place] [address] CENTER after 07/17/2017 Insurance Payer Benefit Plan / Group Subscriber ID Type Phone Address MEDICARE MEDICARE A B xxxxxxxxxxx Medicare DIAZ MEDICAID MEDICAID DIAZ xxxxxxxxx (Home) [address] [place] [id number] Advance Directives For more information, please contact:[address] [phone] Code Status Date Activated Date Inactivated Comments Full Code 07/06/2018 8:11 AM 07/11/2018 6:24 PM This code status was determined by: Patient
--- OUTSIDE RECORDS SUMMARY | 2018-07-18 19:29 | XMS REPORT ---
:1970 [facility] Address [address] [place] [address] Dr. [address] [place] [id number] Care Team Providers Name Role Phone DR EDGARD CASH Unavailable Unavailable SHAMSEE PAPI-JOSE ALEJANDRO-AHMED Unavailable Unavailable BLAKE ALLEN - Unavailable Unavailable RADHA DELVALLE Unavailable Unavailable Problems This patient has no known problems. Allergies, Adverse Reactions, Alerts This patient has no known allergies or adverse reactions. Medications This patient has no known medications. Encounters Start End Encounter Admission Attending Care Care Encounter Date/Time Date/Time Type Type Clinicians Facility Department ID 2016-11-04 Inpatient C [facility] [id number] 09:30:00 EDGARD 2016-07-15 2016-07-19 Inpatient 1 [facility] [id number] 18:47:00 10:30:00 BLAKE 2013-11-19 2013-11-19 Emergency E MOOK [facility] [id number] 10:08:00 12:55:00 RADHA Results Test Description Test Time Test Comments Text Results Atomic Results Result Comments TISSUE EXAM 2018-07-12 09:23:00 Surgical Pathology Report Case: [id number] Authorizing Provider: King Huynh MD Collected: 07/11/2018 0924 Ordering Location: [address] Received: 07/11/2018 1421 Service Pathologist: Linda [...] AND COMMENT) Signing Pathologist Direct Phone Line: [phone] signed by Linda Mullen MD on 07/12/2018 at 9:23 AMPatient's history of Crohn's disease is noted per Epic note dated 07/10/18. The current sampling shows no significant active or chronic colitis. This may represent complete histologic resolution following treatment. Clinical and endoscopic correlation is recommended.[id number] abdominal pain A. Random colon biopsy. B. [...] Test Item Value Reference Range Comments CULTURE (Yantra) (test frcd=2488) No growth in 5 days BLOOD [id number] 20:01:00 Test Item Value Reference Range Comments CULTURE (BEAKER) (test naov=0855) No growth in 5 days BASIC METABOLIC [id number] 04:55:00 Test Item Value Reference Range Comments SODIUM (BEAKER) (test 145 meq/L 136-145 katj=397) POTASSIUM (BEAKER) (test 4.0 meq/L 3.5-5.1 hwgq=055) CHLORIDE (BEAKER) (test 111 meq/L 98-107 iofq=549) CO2 (BEAKER) (test 27 meq/L 22-29 uoxi=579) BLOOD UREA NITROGEN 2 mg/dL 7-21 (BEAKER) (test tqal=912) CREATININE (BEAKER) (test 0.68 mg/dL 0.57-1.25 zbie=551) GLUCOSE RANDOM (BEAKER) 100 mg/dL 70-105 (test ftxj=279) CALCIUM (BEAKER) (test 9.0 mg/dL 8.4-10.2 tlin=553) EGFR (BEAKER) (test 93 mL/min/1.73 sq m ESTIMATED GFR IS NOT znxl=6499) ACCURATE CREATININE CLEARANCE IN PREDICTING GLOMERULAR FILTRATION RATE. ESTIMATED GFR IS NOT APPLICABLE FOR DIALYSIS PATIENTS. CBC W/PLT COUNT & AUTO [id number] 04:37:00 Test Item Value Reference Range Comments WHITE BLOOD CELL COUNT (BEAKER) (test qbbz=391) 6.3 K/ L 3.5-10.5 RED BLOOD CELL COUNT (BEAKER) (test npap=206) 3.92 M/ L 3.93-5.22 HEMOGLOBIN (BEAKER) (test uzle=768) 12.0 GM/DL 11.2-15.7 HEMATOCRIT (BEAKER) (test zfvs=817) 38.3 % 34.1-44.9 MEAN CORPUSCULAR VOLUME (BEAKER) (test gtyg=424) 97.7 fL 79.4-94.8 MEAN CORPUSCULAR HEMOGLOBIN (BEAKER) (test 30.6 pg 25.6-32.2 qvxm=381) MEAN CORPUSCULAR HEMOGLOBIN CONC (BEAKER) (test 31.3 GM/DL 32.2-35.5 armn=541) RED CELL DISTRIBUTION WIDTH (BEAKER) (test 13.5 % 11.7-14.4 tdem=216) PLATELET COUNT (BEAKER) (test tbrt=844) 220 K/CU MM 150-450 MEAN PLATELET VOLUME (BEAKER) (test xnyo=516) 9.6 fL 9.4-12.3 NUCLEATED RED BLOOD CELLS (BEAKER) (test 0 /100 WBC 0-0 pxgk=263) NEUTROPHILS RELATIVE PERCENT (BEAKER) (test 76 % gano=603) LYMPHOCYTES RELATIVE PERCENT (BEAKER) (test 20 % hbds=602) MONOCYTES RELATIVE PERCENT (BEAKER) (test 3 % ruzd=058) EOSINOPHILS RELATIVE PERCENT (BEAKER) (test 0 % shwe=855) BASOPHILS RELATIVE PERCENT (BEAKER) (test 0 % zrhq=801) NEUTROPHILS ABSOLUTE COUNT (BEAKER) (test 4.80 K/ L 1.56-6.13 nffp=946) LYMPHOCYTES ABSOLUTE COUNT (BEAKER) (test 1.26 K/ L 1.18-3.74 bebi=085) MONOCYTES ABSOLUTE COUNT (BEAKER) (test 0.20 K/ L 0.24-0.36 qsac=035) EOSINOPHILS ABSOLUTE COUNT (BEAKER) (test 0.00 K/ L 0.04-0.36 qpvu=960) BASOPHILS ABSOLUTE COUNT (BEAKER) (test 0.01 K/ L 0.01-0.08 kmxq=952) IMMATURE GRANULOCYTES-RELATIVE PERCENT (BEAKER) 1 % 0-1 (test gqeo=3052) BASIC METABOLIC [id number] 06:15:00 Test Item Value Reference Range Comments SODIUM (BEAKER) (test 144 meq/L 136-145 bkmo=152) POTASSIUM (BEAKER) (test 4.3 meq/L 3.5-5.1 Specimen slightly hktl=785) hemolyzed CHLORIDE (BEAKER) (test 113 meq/L 98-107 creq=337) CO2 (BEAKER) (test 24 meq/L 22-29 tdoy=316) BLOOD UREA NITROGEN 3 mg/dL 7-21 (BEAKER) (test ygas=375) CREATININE (BEAKER) (test 0.72 mg/dL 0.57-1.25 Specimen slightly fbxr=508) hemolyzed GLUCOSE RANDOM (BEAKER) 138 mg/dL 70-105 (test bsft=102) CALCIUM (BEAKER) (test 9.3 mg/dL 8.4-10.2 ymxu=900) EGFR (BEAKER) (test 87 mL/min/1.73 sq m ESTIMATED GFR IS NOT hdli=3074) ACCURATE CREATININE CLEARANCE IN PREDICTING GLOMERULAR FILTRATION RATE. ESTIMATED GFR IS NOT APPLICABLE FOR DIALYSIS PATIENTS. CBC W/PLT COUNT & AUTO [id number] 06:06:00 Test Item Value Reference Range Comments WHITE BLOOD CELL COUNT (BEAKER) (test ezhn=364) 7.5 K/ L 3.5-10.5 RED BLOOD CELL COUNT (BEAKER) (test umel=821) 4.07 M/ L 3.93-5.22 HEMOGLOBIN (BEAKER) (test lwou=390) 12.9 GM/DL 11.2-15.7 HEMATOCRIT (BEAKER) (test bnjc=304) 40.3 % 34.1-44.9 MEAN CORPUSCULAR VOLUME (BEAKER) (test smyf=238) 99.0 fL 79.4-94.8 MEAN CORPUSCULAR HEMOGLOBIN (BEAKER) (test 31.7 pg 25.6-32.2 kbxb=759) MEAN CORPUSCULAR HEMOGLOBIN CONC (BEAKER) (test 32.0 GM/DL 32.2-35.5 pbcy=740) RED CELL DISTRIBUTION WIDTH (BEAKER) (test 13.3 % 11.7-14.4 jjhj=405) PLATELET COUNT (BEAKER) (test bkih=633) 191 K/CU MM 150-450 MEAN PLATELET VOLUME (BEAKER) (test ashm=495) 9.9 fL 9.4-12.3 NUCLEATED RED BLOOD CELLS (BEAKER) (test 0 /100 WBC 0-0 lyva=885) NEUTROPHILS RELATIVE PERCENT (BEAKER) (test 70 % qlfi=342) LYMPHOCYTES RELATIVE PERCENT (BEAKER) (test 24 % ideb=790) MONOCYTES RELATIVE PERCENT (BEAKER) (test 5 % smkm=380) EOSINOPHILS RELATIVE PERCENT (BEAKER) (test 0 % aytj=834) BASOPHILS RELATIVE PERCENT (BEAKER) (test 0 % ifcf=649) NEUTROPHILS ABSOLUTE COUNT (BEAKER) (test 5.25 K/ L 1.56-6.13 gpyn=077) LYMPHOCYTES ABSOLUTE COUNT (BEAKER) (test 1.83 K/ L 1.18-3.74 nadh=284) MONOCYTES ABSOLUTE COUNT (BEAKER) (test 0.37 K/ L 0.24-0.36 dktx=888) EOSINOPHILS ABSOLUTE COUNT (BEAKER) (test 0.02 K/ L 0.04-0.36 oozp=668) BASOPHILS ABSOLUTE COUNT (BEAKER) (test 0.01 K/ L 0.01-0.08 jole=466) IMMATURE GRANULOCYTES-RELATIVE PERCENT (BEAKER) 0 % 0-1 (test aerw=4895) STOOL CULTURE + SHIGA [id number] 12:15:00 Test Item Value Reference Range Comments CULTURE (BEAKER) (test No Salmonella, Shigella or bwqt=3635) Campylobacter isolated BASIC METABOLIC [id number] 07:08:00 Test Item Value Reference Range Comments SODIUM (BEAKER) (test 143 meq/L 136-145 olgp=236) POTASSIUM (BEAKER) (test 4.2 meq/L 3.5-5.1 rcax=683) CHLORIDE (BEAKER) (test 111 meq/L 98-107 qqhd=779) CO2 (BEAKER) (test 25 meq/L 22-29 mauu=826) BLOOD UREA NITROGEN 3 mg/dL 7-21 (BEAKER) (test jzfq=037) CREATININE (BEAKER) (test 0.67 mg/dL 0.57-1.25 rdnm=887) GLUCOSE RANDOM (BEAKER) 106 mg/dL 70-105 (test inmi=722) CALCIUM (BEAKER) (test 9.2 mg/dL 8.4-10.2 qkti=564) EGFR (BEAKER) (test 95 mL/min/1.73 sq m ESTIMATED GFR IS NOT grxe=3059) ACCURATE CREATININE CLEARANCE IN PREDICTING GLOMERULAR FILTRATION RATE. ESTIMATED GFR IS NOT APPLICABLE FOR DIALYSIS PATIENTS. CBC W/PLT COUNT & AUTO [id number] 06:42:00 Test Item Value Reference Range Comments WHITE BLOOD CELL COUNT (BEAKER) (test xyhd=345) 6.2 K/ L 3.5-10.5 RED BLOOD CELL COUNT (BEAKER) (test zibi=725) 4.29 M/ L 3.93-5.22 HEMOGLOBIN (BEAKER) (test msuz=915) 13.4 GM/DL 11.2-15.7 HEMATOCRIT (BEAKER) (test ystu=605) 41.1 % 34.1-44.9 MEAN CORPUSCULAR VOLUME (BEAKER) (test gygc=289) 95.8 fL 79.4-94.8 MEAN CORPUSCULAR HEMOGLOBIN (BEAKER) (test 31.2 pg 25.6-32.2 rijd=981) MEAN CORPUSCULAR HEMOGLOBIN CONC (BEAKER) (test 32.6 GM/DL 32.2-35.5 mmka=637) RED CELL DISTRIBUTION WIDTH (BEAKER) (test 13.1 % 11.7-14.4 rkzv=949) PLATELET COUNT (BEAKER) (test fotp=184) 232 K/CU MM 150-450 MEAN PLATELET VOLUME (BEAKER) (test iyij=183) 9.0 fL 9.4-12.3 NUCLEATED RED BLOOD CELLS (BEAKER) (test 0 /100 WBC 0-0 srsh=815) NEUTROPHILS RELATIVE PERCENT (BEAKER) (test 67 % kupj=271) LYMPHOCYTES RELATIVE PERCENT (BEAKER) (test 27 % fufh=758) MONOCYTES RELATIVE PERCENT (BEAKER) (test 5 % ukto=406) EOSINOPHILS RELATIVE PERCENT (BEAKER) (test 0 % oqgz=771) BASOPHILS RELATIVE PERCENT (BEAKER) (test 0 % fbrt=476) NEUTROPHILS ABSOLUTE COUNT (BEAKER) (test 4.18 K/ L 1.56-6.13 uljm=917) LYMPHOCYTES ABSOLUTE COUNT (BEAKER) (test 1.69 K/ L 1.18-3.74 jijt=544) MONOCYTES ABSOLUTE COUNT (BEAKER) (test 0.29 K/ L 0.24-0.36 xdgb=845) EOSINOPHILS ABSOLUTE COUNT (BEAKER) (test 0.01 K/ L 0.04-0.36 rfnx=594) BASOPHILS ABSOLUTE COUNT (BEAKER) (test 0.02 K/ L 0.01-0.08 utzg=494) IMMATURE GRANULOCYTES-RELATIVE PERCENT (BEAKER) 1 % 0-1 (test ylbx=6515) CT, ABDOMEN - PELVIS, [id number] 14:17:00Reason for exam:-> Evaluation of small bowel [...] lesion demonstrated. Endplate degenerative change at L1-2 trqC11-M8 noted. There is an implanted pump in the right lower quadrant subcutaneous fat with a lead going to the thecal sac terminating at the T11 level. IMPRESSION: Evidence of acute colitis of the sigmoid colon. No small bowel enteritis demonstrated. No stricture, fistula, or intramesenteric abscess demonstrated. Signed: Vicente Montero MDReport Verified Date/Time: 07/08/2018 14:17:31 Reading Location: [facility] B1 [id number] Ortho Consult Reading Room [facility] METABOLIC [id number] 06:53:00 Test Item Value Reference Range Comments SODIUM (BEAKER) (test 137 meq/L 136-145 cmha=674) POTASSIUM (BEAKER) (test 4.2 meq/L 3.5-5.1 xauo=507) CHLORIDE (BEAKER) (test 105 meq/L 98-107 jcuq=396) CO2 (BEAKER) (test 23 meq/L 22-29 wfok=040) BLOOD UREA NITROGEN 3 mg/dL 7-21 (BEAKER) (test vyum=914) CREATININE (BEAKER) (test 0.75 mg/dL 0.57-1.25 eoni=156) GLUCOSE RANDOM (BEAKER) 85 mg/dL 70-105 (test yiou=461) CALCIUM (BEAKER) (test 8.6 mg/dL 8.4-10.2 jifg=278) EGFR (BEAKER) (test 83 mL/min/1.73 sq m ESTIMATED GFR IS NOT darq=0706) ACCURATE CREATININE CLEARANCE IN PREDICTING GLOMERULAR FILTRATION RATE. ESTIMATED GFR IS NOT APPLICABLE FOR DIALYSIS PATIENTS. CBC W/PLT COUNT & AUTO [id number] 06:25:00 Test Item Value Reference Range Comments WHITE BLOOD CELL COUNT (BEAKER) (test crva=831) 5.3 K/ L 3.5-10.5 RED BLOOD CELL COUNT (BEAKER) (test ukin=905) 4.11 M/ L 3.93-5.22 HEMOGLOBIN (BEAKER) (test aetq=559) 12.8 GM/DL 11.2-15.7 HEMATOCRIT (BEAKER) (test zquy=948) 40.4 % 34.1-44.9 MEAN CORPUSCULAR VOLUME (BEAKER) (test vnty=445) 98.3 fL 79.4-94.8 MEAN CORPUSCULAR HEMOGLOBIN (BEAKER) (test 31.1 pg 25.6-32.2 qvcq=274) MEAN CORPUSCULAR HEMOGLOBIN CONC (BEAKER) (test 31.7 GM/DL 32.2-35.5 gnay=807) RED CELL DISTRIBUTION WIDTH (BEAKER) (test 13.7 % 11.7-14.4 cxzc=197) PLATELET COUNT (BEAKER) (test okzy=431) 213 K/CU MM 150-450 MEAN PLATELET VOLUME (BEAKER) (test pssy=666) 8.9 fL 9.4-12.3 NUCLEATED RED BLOOD CELLS (BEAKER) (test 0 /100 WBC 0-0 yscw=959) NEUTROPHILS RELATIVE PERCENT (BEAKER) (test 47 % dvnf=418) LYMPHOCYTES RELATIVE PERCENT (BEAKER) (test 39 % ppfq=508) MONOCYTES RELATIVE PERCENT (BEAKER) (test 9 % acpr=506) EOSINOPHILS RELATIVE PERCENT (BEAKER) (test 5 % mvdv=335) BASOPHILS RELATIVE PERCENT (BEAKER) (test 0 % elco=432) NEUTROPHILS ABSOLUTE COUNT (BEAKER) (test 2.48 K/ L 1.56-6.13 dwmg=425) LYMPHOCYTES ABSOLUTE COUNT (BEAKER) (test 2.04 K/ L 1.18-3.74 mpph=914) MONOCYTES ABSOLUTE COUNT (BEAKER) (test 0.45 K/ L 0.24-0.36 thsc=587) EOSINOPHILS ABSOLUTE COUNT (BEAKER) (test 0.26 K/ L 0.04-0.36 tmxo=903) BASOPHILS ABSOLUTE COUNT (BEAKER) (test 0.02 K/ L 0.01-0.08 xgpv=107) IMMATURE GRANULOCYTES-RELATIVE PERCENT (BEAKER) 0 % 0-1 (test wnqn=5737) SHIGA TOXIN [id number] 13:53:00 Test Item Value Reference Range Comments SHIGA TOXIN 1 (BEAKER) (test stgm=1726) Not detected Not detected SHIGA TOXIN 2 (BEAKER) (test gyee=3237) Not detected Not detected C. DIFFICILE GDH [id number] 13:28:00 Test Item Value Reference Range Comments CDT TOXIN (test Negative Negative xipt=[id number]) CDT GDH ANTIGEN (test Negative Negative No indication of Clostridium gwec=[id number]) difficile infection and no colonization. Discontinue enteric isolation and therapy. Testing performed by [email or web address] Rapid Cassette Assay. For GDH, published sensitivity of the assay is 98.7% compared to cytotoxicity testing. For Toxin AB, published sensitivity is 87.8% and specificity 99.4% compared to cytotoxicity testing.Verification of kit performance was done by the [facility] Microbiology Lab prior to clinical use.STOOL PATH [id number] 10:17:00 Test Item Value Reference Range Comments PATHOGEN EXAM CHARGED (BEAKER) (test adkb=2390) Done BASIC METABOLIC [id number] 05:17:00 Test Item Value Reference Range Comments SODIUM (BEAKER) (test 142 meq/L 136-145 htqp=283) POTASSIUM (BEAKER) (test 4.3 meq/L 3.5-5.1 zbzc=525) CHLORIDE (BEAKER) (test 110 meq/L 98-107 forc=152) CO2 (BEAKER) (test 25 meq/L 22-29 tbkj=164) BLOOD UREA NITROGEN 5 mg/dL 7-21 (BEAKER) (test jzdt=786) CREATININE (BEAKER) (test 0.78 mg/dL 0.57-1.25 hfbd=752) GLUCOSE RANDOM (BEAKER) 108 mg/dL 70-105 (test biqp=673) CALCIUM (BEAKER) (test 8.9 mg/dL 8.4-10.2 hktl=567) EGFR (BEAKER) (test 80 mL/min/1.73 sq m ESTIMATED GFR IS NOT dyec=4821) ACCURATE CREATININE CLEARANCE IN PREDICTING GLOMERULAR FILTRATION RATE. ESTIMATED GFR IS NOT APPLICABLE FOR DIALYSIS PATIENTS. CBC W/PLT COUNT & AUTO [id number] 04:58:00 Test Item Value Reference Range Comments WHITE BLOOD CELL COUNT (BEAKER) (test ynyq=670) 4.8 K/ L 3.5-10.5 RED BLOOD CELL COUNT (BEAKER) (test hiym=368) 3.79 M/ L 3.93-5.22 HEMOGLOBIN (BEAKER) (test jvgh=849) 11.8 GM/DL 11.2-15.7 HEMATOCRIT (BEAKER) (test dgky=737) 37.6 % 34.1-44.9 MEAN CORPUSCULAR VOLUME (BEAKER) (test jate=758) 99.2 fL 79.4-94.8 MEAN CORPUSCULAR HEMOGLOBIN (BEAKER) (test 31.1 pg 25.6-32.2 ceib=385) MEAN CORPUSCULAR HEMOGLOBIN CONC (BEAKER) (test 31.4 GM/DL 32.2-35.5 dppd=399) RED CELL DISTRIBUTION WIDTH (BEAKER) (test 14.5 % 11.7-14.4 klqb=445) PLATELET COUNT (BEAKER) (test rbmg=445) 216 K/CU MM 150-450 MEAN PLATELET VOLUME (BEAKER) (test upih=388) 9.3 fL 9.4-12.3 NUCLEATED RED BLOOD CELLS (BEAKER) (test 0 /100 WBC 0-0 fjxt=338) NEUTROPHILS RELATIVE PERCENT (BEAKER) (test 44 % jtfv=400) LYMPHOCYTES RELATIVE PERCENT (BEAKER) (test 44 % tikq=208) MONOCYTES RELATIVE PERCENT (BEAKER) (test 6 % okjs=407) EOSINOPHILS RELATIVE PERCENT (BEAKER) (test 5 % woen=994) BASOPHILS RELATIVE PERCENT (BEAKER) (test 0 % stpo=308) NEUTROPHILS ABSOLUTE COUNT (BEAKER) (test 2.14 K/ L 1.56-6.13 guni=884) LYMPHOCYTES ABSOLUTE COUNT (BEAKER) (test 2.12 K/ L 1.18-3.74 ehsz=744) MONOCYTES ABSOLUTE COUNT (BEAKER) (test 0.31 K/ L 0.24-0.36 mufi=325) EOSINOPHILS ABSOLUTE COUNT (BEAKER) (test 0.24 K/ L 0.04-0.36 hina=637) BASOPHILS ABSOLUTE COUNT (BEAKER) (test 0.01 K/ L 0.01-0.08 sixt=389) IMMATURE GRANULOCYTES-RELATIVE PERCENT (BEAKER) 0 % 0-1 (test leci=6975) RAD, CHEST, 1 VIEW, NON [id number] 14:21:00Reason for exam:->FeverShould this be performed at the bedside?->YesFINAL REPORT TECHNIQUE: Frontal chest radiograph dated 07/06/2018. CLINICAL HISTORY: Fever COMPARISON STUDY: None IMPRESSION:Lungs are clear. No pleural effusion or pneumothorax. Cardiomediastinal silhouette is normal in size. No pulmonary edema. No fracture. Signed: Xiao Mckinneyeport Verified Date/Time: 11/2018 14:21:04 Reading Location: [facility] Radiology Reading Room RAPID DRUG SCREEN , [id number] 12:52:00 Test Item Value Reference Range Comments BARBITURATE URINE (BEAKER) (test lsze=288) Negative Negative BENZODIAZEPINE SCREEN URINE (BEAKER) (test Positive Negative tjjj=934) COCAINE (METAB.) SCREEN (BEAKER) (test vczy=2911) Negative Negative METHADONE SCREEN (BEAKER) (test dlhc=0236) Negative Negative OPIATE SCREEN URINE (BEAKER) (test urdt=115) Positive Negative CANNABINOID SCREEN URINE (BEAKER) (test eoqb=524) Negative Negative AMPH/METHAMPH SCREEN (BEAKER) (test hsff=4388) Negative Negative PHENCYCLIDINE SCREEN URINE (BEAKER) (test gsav=743) Negative Negative OXYCODONE SCREEN URINE (BEAKER) (test jdyu=2378) Negative Negative DRUG CUTOFF CONC.Cocaine 300 ng/mL Cannabinoid 50 ng/mL Benzodiazepine 200 ng/mLBarbiturate 200 ng/ mLPhencyclidine 25 ng/mLOpiate 300 ng/mLMethadone 300 ng/mLAmphetamine/ 1000 ng/mL MethamphetamineOxycodone 300 ng/mLThis assay provides an unconfirmed qualitative test result for the clinical management of patients in emergency situations. Chain of custody not maintained. Some enul-mad-mdxeqll medications, as well as adulterants, may cause inaccurate results. Clinical correlation should be applied. A more comprehensive drug screen or confirmation of a detected drug may be performed upon request.CBC W/PLT COUNT & AUTO [id number] 12:40:00 Test Item Value Reference Range Comments WHITE BLOOD CELL COUNT (BEAKER) (test yrts=182) 8.7 K/ L 3.5-10.5 RED BLOOD CELL COUNT (BEAKER) (test tpgj=127) 4.01 M/ L 3.93-5.22 HEMOGLOBIN (BEAKER) (test xwwk=781) 12.6 GM/DL 11.2-15.7 HEMATOCRIT (BEAKER) (test svhy=649) 39.3 % 34.1-44.9 MEAN CORPUSCULAR VOLUME (BEAKER) (test znqt=677) 98.0 fL 79.4-94.8 MEAN CORPUSCULAR HEMOGLOBIN (BEAKER) (test 31.4 pg 25.6-32.2 mrsf=773) MEAN CORPUSCULAR HEMOGLOBIN CONC (BEAKER) (test 32.1 GM/DL 32.2-35.5 snuz=541) RED CELL DISTRIBUTION WIDTH (BEAKER) (test 14.3 % 11.7-14.4 ujrj=441) PLATELET COUNT (BEAKER) (test phbi=517) 212 K/CU MM 150-450 MEAN PLATELET VOLUME (BEAKER) (test zeic=414) 10.0 fL 9.4-12.3 NUCLEATED RED BLOOD CELLS (BEAKER) (test 0 /100 WBC 0-0 apth=177) NEUTROPHILS RELATIVE PERCENT (BEAKER) (test 65 % etos=132) LYMPHOCYTES RELATIVE PERCENT (BEAKER) (test 25 % cevg=670) MONOCYTES RELATIVE PERCENT (BEAKER) (test 7 % kqyf=806) EOSINOPHILS RELATIVE PERCENT (BEAKER) (test 2 % rbnj=935) BASOPHILS RELATIVE PERCENT (BEAKER) (test 0 % wbjb=704) NEUTROPHILS ABSOLUTE COUNT (BEAKER) (test 5.70 K/ L 1.56-6.13 eskt=022) LYMPHOCYTES ABSOLUTE COUNT (BEAKER) (test 2.18 K/ L 1.18-3.74 jcoy=000) MONOCYTES ABSOLUTE COUNT (BEAKER) (test 0.59 K/ L 0.24-0.36 lqtr=131) EOSINOPHILS ABSOLUTE COUNT (BEAKER) (test 0.17 K/ L 0.04-0.36 qrmd=269) BASOPHILS ABSOLUTE COUNT (BEAKER) (test 0.02 K/ L 0.01-0.08 thds=515) IMMATURE GRANULOCYTES-RELATIVE PERCENT (BEAKER) 1 % 0-1 (test iuiu=3617) [id number] 12:12:00 Test Item Value Reference Range Comments PHOSPHORUS (BEAKER) (test dzla=747) 3.0 mg/dL 2.3-4.7 [id number] 12:12:00 Test Item Value Reference Range Comments MAGNESIUM (BEAKER) (test ifrz=399) 2.1 mg/dL 1.6-2.6 BASIC METABOLIC [id number] 12:12:00 Test Item Value Reference Range Comments SODIUM (BEAKER) (test 138 meq/L 136-145 jqna=004) POTASSIUM (BEAKER) (test 3.7 meq/L 3.5-5.1 mdsi=326) CHLORIDE (BEAKER) (test 104 meq/L 98-107 pjrr=186) CO2 (BEAKER) (test 25 meq/L 22-29 yjmg=545) BLOOD UREA NITROGEN 8 mg/dL 7-21 (BEAKER) (test xemh=379) CREATININE (BEAKER) (test 0.72 mg/dL 0.57-1.25 xrlx=003) GLUCOSE RANDOM (BEAKER) 93 mg/dL 70-105 (test meim=487) CALCIUM (BEAKER) (test 9.1 mg/dL 8.4-10.2 xhxh=616) EGFR (BEAKER) (test 87 mL/min/1.73 sq m ESTIMATED GFR IS NOT skmu=2084) ACCURATE CREATININE CLEARANCE IN PREDICTING GLOMERULAR FILTRATION RATE. ESTIMATED GFR IS NOT APPLICABLE FOR DIALYSIS PATIENTS. HEPATIC FUNCTION [id number] 12:12:00 Test Item Value Reference Range Comments TOTAL PROTEIN (BEAKER) (test hswn=343) 6.4 gm/dL 6.0-8.3 ALBUMIN (BEAKER) (test bway=0376) 3.9 g/dL 3.5-5.0 BILIRUBIN TOTAL (BEAKER) (test dprv=868) 0.5 mg/dL 0.2-1.2 BILIRUBIN DIRECT (BEAKER) (test nfse=172) 0.2 mg/dL 0.1-0.5 ALKALINE PHOSPHATASE (BEAKER) (test vxzz=635) 78 U/L 40-150 AST (SGOT) (BEAKER) (test zmph=506) 14 U/L 5-34 ALT (SGPT) (BEAKER) (test bcec=733) 12 U/L 6-55 LACTIC ACID, VENOUS, WHOLE [id number] 12:08:00 Test Item Value Reference Range Comments LACTATE BLOOD VENOUS (2) 0.8 mmol/L 0.5-2.2 Specimen moderately hemolyzed (BEAKER) (test dgti=8903) URINALYSIS W/ REFLEX URINE [id number] 11:10:00 Test Item Value Reference Range Comments COLOR (BEAKER) (test qntj=233) Light Yellow CLARITY (BEAKER) (test zrcf=503) Clear SPECIFIC GRAVITY UA (BEAKER) (test fbiu=011) 1.020 1.001-1.035 PH UA (BEAKER) (test bvyu=516) 6.5 5.0-8.0 PROTEIN UA (BEAKER) (test dakn=973) Negative Negative GLUCOSE UA (BEAKER) (test yivd=926) Negative Negative KETONES UA (BEAKER) (test lgrt=541) Negative Negative BILIRUBIN UA (BEAKER) (test crpz=293) Negative Negative BLOOD UA (BEAKER) (test lfwq=563) Negative Negative NITRITE UA (BEAKER) (test feio=914) Negative Negative LEUKOCYTE ESTERASE UA (BEAKER) (test sstt=547) Negative Negative UROBILINOGEN UA (BEAKER) (test xuco=635) 0.2 mg/dL 0.2-1.0 RBC UA (BEAKER) (test kaxv=786) < /HPF WBC UA (BEAKER) (test nkxu=635) 0 /HPF SQUAMOUS EPITHELIAL (BEAKER) (test vmud=441) < /HPF SOURCE(BEAKER) (test rptv=9432) CT ABDOMEN/PELVIS [id number] 14:26:00[address] [id number] IMAGING REPORTPatient Name : Manuel DEL TORO of Service: [id number]: 45 Sex: F Order #: 700 Room: ERSDOB: 1970 X-Ray Number: [id number] Record Number: [id number] Hospital Number: [id number] Physician: KISHAN MUNOZ - Ordering Physician: HERNANDEZ [...] by TIFFANIE Syed 2016-07-26 14:23:48CT ABDOMEN/ PELVIS [id number] 02:49:00[place] [id number] IMAGING REPORTPatient Name: Manuel DEL TORO of Service: [id number]: 45 Sex: F Order #: 1400 Room: [facility] A 2NEDOB: 1970 X-Ray Number: [id number] Record Number: [id number] Hospital Number: [id number] Physician: BLAKE ALLEN - Ordering Physician: AURORA [...] authenticated by MARTINEZ VALDEZ 2016-07-17 02:47:19ABDOMEN 2 [id number] 12:14:[address] [id number] IMAGING REPORTPatient Name: Manuel DEL TORO of Service: [id number]: 45 Sex: F Order #: 500 Room: [facility]: 1970 X-Ray Number: [id number] Record Number: [id number] Hospital Number: [id number] Physician: [place] TEJEDA Physician: Elvis GARCIA 2 [...]
[2018-07-18 20:04] LABS: Absolute Lymphocytes (CBC) 1.3 K/uL (0.7-4.9); Absolute Monocytes 0.4 K/uL (0.1-1.3); Absolute Neutrophil 8.7 K/uL (1.8-8.0); Basophils % 0.3 % (0-1.3); Hematocrit 37.3 % (36.0-45.0); Lymphocytes % 12.3 % (15.3-44.8); MPV 6.8 fL (7.6-11.3); Monocytes % 3.9 % (3.3-12.3); RBC Red Blood Cell Count 3.92 M/uL (3.86-4.86)
[2018-07-18] MEDS ORDERED: ONDANSETRON 4 MG/2 ML VIAL ONE (20:17)
[2018-07-18] MEDS ORDERED: HYDROMORPHONE HCL 1 MG/ML INJ ONE (20:17)
[2018-07-18] MEDS ORDERED: NA CHLORIDE 0.9% 1,000 ML ONE (20:18)
[2018-07-18] MEDS ORDERED: FAMOTIDINE 20 MG/2 ML VIAL IV ONE (20:18)
[2018-07-18 20:24] LABS: ALT/SGPT 27 U/L (12-78); AST/SGOT 10 U/L (15-37); Albumin 3.4 g/dL (3.4-5.0); Alkaline Phosphatase 63 U/L (45-117); BUN Blood Urea Nitrogen 15 mg/dL (7-18); Bicarbonate 29 mmol/L (21-32); Bilirubin Direct < 0.1 mg/dL (0-0.2); Bilirubin Total 0.2 mg/dL (0.2-1.0); Glucose Level 79 mg/dL (74-106); Lipase 248 U/L (73-393); Potassium 4.1 mmol/L (3.5-5.1); Protein, Total 6.4 g/dL (6.4-8.2); Sodium Level 144 mmol/L (136-145)
[2018-07-18 21:44] LABS: Urine Blood TRACE (NEG); Urine Glucose NEGATIVE (NEG); Urine Protein NEGATIVE (NEG)
--- NOTE | 2018-07-18 22:00 | EDPHYS ---
Physician Documentation [facility] Name: Angela Rodriguez Age: 47 yrs Sex: Female : 1970 Arrival Date: 07/18/2018 Time: 19:26 Bed 20 Private MD: ED Physician Richy Mathew HPI: 07/18 19:45 This 47 yrs old Female presents to ER via Wheelchair with complaints of cp Abdominal Pain - severe. 19:45 The patient presents with abdominal pain that is diffuse. cp 19:45 Onset: The symptoms/episode began/occurred gradually, and became worse today. The cp symptoms do not radiate. Associated signs and symptoms: Pertinent positives: diarrhea, nausea, Pertinent negatives: blood in stools, chest pain, constipation, fever, vomiting. The symptoms are described as constant. The patient has experienced similar episodes in the past, multiple times, but today's symptoms are worse, more painful. 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 - Social history:: Smoking status: Patient uses tobacco products, smokes one-half pack cigarettes per day. - Ebola Screening: : Patient negative for fever greater than or equal to 101.5 degrees Fahrenheit, and additional compatible Ebola Virus Disease symptoms. ROS: 19:50 Constitutional: Negative for body aches, chills, fever, poor PO intake. cp 19:50 Eyes: Negative for injury, pain, redness, and discharge. cp 19:50 Cardiovascular: Negative for chest pain. cp 19:50 ENT: Negative for drainage from ear(s), ear pain, sore throat, difficulty swallowing, cp difficulty handling secretions. 19:50 Respiratory: Negative for cough, shortness of breath, wheezing. 19:50 Abdomen/GI: Positive for abdominal pain, nausea, diarrhea, Negative for vomiting, constipation, black/tarry stool, rectal bleeding. 19:50 Back: Negative for radiated pain. 19:50 : Negative for urinary symptoms. 19:50 Skin: Negative for cellulitis, rash. 19:50 Neuro: Negative for altered mental status, headache, weakness. 19:50 All other systems are negative. Exam: 20:00 Constitutional: The patient appears in no acute distress, alert, awake, non-toxic, well cp developed, well nourished, uncomfortable. 20:00 Head/Face: Normocephalic, atraumatic. Eyes: Pupils equal round and reactive to light, cp extra-ocular motions intact. Lids and lashes normal. Conjunctiva and sclera are non-icteric and not injected. Cornea within normal limits. Periorbital areas with no swelling, redness, or edema. ENT: Nares patent. No nasal discharge, no septal abnormalities noted. Tympanic membranes are normal and external auditory canals are clear. Oropharynx with no redness, swelling, or masses, exudates, or evidence of obstruction, uvula midline. Mucous membranes moist. Chest/axilla: Normal chest wall appearance and motion. Nontender with no deformity. No lesions are appreciated. 20:00 Cardiovascular: Rate: normal, Rhythm: regular, Heart sounds: murmur, not appreciated, JVD: is not appreciated. 20:00 Respiratory: the patient does not display signs of respiratory distress, Respirations: normal, no use of accessory muscles, no retractions, no splinting, no tachypnea, labored breathing, is not present, Breath sounds: are clear throughout, no decreased breath sounds, no stridor, no wheezing. 20:00 Abdomen/GI: Inspection: distension, is not seen, scar(s), Bowel sounds: active, all quadrants, Palpation: soft, in all quadrants, severe abdominal tenderness, in the abdomen diffusely, rebound tenderness, is not appreciated, voluntary guarding, is elicited in all quadrants. 20:00 Back: pain, is absent, ROM is normal. 20:00 Skin: cellulitis, is not appreciated, no rash present. 20:00 Neuro: Orientation: to person, place \T\ time. Mentation: is normal, Cerebellar function: is grossly normal, Motor: moves all fours, strength is normal, Sensation: is normal. Vital Signs: 19:45 BP 147 / 116; Pulse 94; Resp 19 S; Temp 98.4(O); Pulse Ox 100% on R/A; Weight 57.61 kg jd3 (R); Height 5 ft. 2 in. (157.48 cm) (R); Pain 10/10; 20:40 BP 107 / 93; Pulse 50; Resp 18 S; Pulse Ox 95% on R/A; jd3 22:04 BP 131 / 85; Pulse 51; Resp 16 S; Pulse Ox 96% on R/A; jd3 19:45 Body Mass Index 23.23 (57.61 kg, 157.48 cm) jd3 MDM: 19:33 Patient medically screened. cp 20:00 Differential diagnosis: bowel obstruction, diverticulitis, gastritis, pancreatitis, cp Pyelonephritis, Ureterolithiasis, urinary tract infection, colitis. 22:00 Data reviewed: vital signs, nurses notes, lab test result(s), radiologic studies, plain cp films. 22:00 Test interpretation: by ED physician or midlevel provider: plain radiologic studies. cp Counseling: I had a detailed discussion with the patient and/or guardian regarding: the historical points, exam findings, and any diagnostic results supporting the discharge/admit diagnosis, lab results, radiology results, to return to the emergency department if symptoms worsen or persist or if there are any questions or concerns that arise at home. Response to treatment: the patient's symptoms have markedly improved after treatment, VSS. Pain and nausea markedly improved, and as a result, I will discharge patient. 07/18 19:42 Order name: Basic Metabolic Panel; Complete Time: 20:35 cp 07/18 19:42 Order name: CBC with Diff; Complete Time: 20:35 cp 07/18 20:36 Interpretation: WBC 10.4; MPV 6.8; STEPHANIA% 83.5; LYM% 12.3; NEUT A 8.7; Reviewed. cp 07/18 19:42 Order name: Creatinine for Radiology; Complete Time: 20:35 cp 07/18 19:42 Order name: Hepatic Function; Complete Time: 20:35 cp 07/18 19:42 Order name: Lipase; Complete Time: 20:35 cp 07/18 20:37 Order name: Urine Dipstick--Ancillary (enter results); Complete Time: 21:58 mw2 07/18 19:42 Order name: IV Saline Lock; Complete Time: 20:09 cp 07/18 20:37 Order name: Urine --Ancillary (enter results); Complete Time: 21:58 mw2 07/18 20:37 Order name: XRAY Abdomen Acute Series cp 07/18 19:42 Order name: Labs collected and sent; Complete Time: 20:09 cp 07/18 19:42 Order name: Urine Dipstick-Ancillary (obtain specimen); Complete Time: 20:21 cp 07/18 21:41 Order name: PO challenge; Complete Time: 22:02 cp Administered Medications: 20:13 Drug: NS 0.9% 1000 ml Route: IV; Rate: 1 bolus; Site: left forearm; jd3 22:15 Follow up: Response: No adverse reaction; IV Status: Completed infusion jd3 20:13 Drug: Dilaudid 1 mg Route: IVP; Site: left forearm; jd3 22:02 Follow up: Response: No adverse reaction jd3 20:14 Drug: Zofran 4 mg Route: IVP; Site: left forearm; jd3 22:02 Follow up: Response: No adverse reaction jd3 20:14 Drug: Pepcid 20 mg Route: IVP; Site: left forearm; jd3 22:02 Follow up: Response: No adverse reaction jd3 22:02 Drug: Hydrocodone-Acetaminophen (7.5 mg-325 mg) 1 tabs Route: PO; jd3 22:15 Follow up: Response: Medication administered at discharge. jd3 Disposition: 07/19 02:08 Co-signature as Attending Physician, Richy Mathew MD. rn Disposition: 07/18/18 22:00 Discharged to Home. Impression: Unspecified abdominal pain - with history of Crohn's, Nausea. - Condition is Stable. - Discharge Instructions: Abdominal Pain, Adult, Chronic Pain, Nausea, Adult. - Prescriptions for Bentyl 20 mg Oral Tablet - take 2 tablet by ORAL route every 6 hours As needed; 40 tablet. Reglan 10 mg Oral Tablet - take 1 tablet by ORAL route every 6 hours take 30 minutes before meals and at bedtime; 20 tablet. Tramadol 50 mg Oral Tablet - take 1 tablet by ORAL route every 8 hours as needed; 12 tablet. - Medication Reconciliation Form, Thank You Letter, Antibiotic Education, Prescription Opioid Use form. - Follow up: Private Physician; When: 2 - 3 days; Reason: Recheck today's complaints. - Problem is an ongoing problem. - Symptoms have improved. Signatures: Dispatcher [employer] EDRichy Russell MD MD rn Page, Corey, PA PA cp Davies, Jonathon, RN RN jd3 Corrections: (The following items were deleted from the chart) 07/18 19:48 19:42 Urine Test ordered. cp jd3 22:16 22:00 07/18/2018 22:00 Discharged to Home. Impression: Unspecified abdominal pain - jd3 with history of Crohn's; Nausea. Condition is Stable. Forms are Medication Reconciliation Form, Thank You Letter, Antibiotic Education, Prescription Opioid Use. Follow up: Private Physician; When: 2 - 3 days; Reason: Recheck today's complaints. Problem is an ongoing problem. Symptoms have improved. cp
--- NOTE | 2018-07-18 22:00 | ER ---
Nurse's Notes [facility] Name: Angela Rodriguez Age: 47 yrs Sex: Female : 1970 Arrival Date: 07/18/2018 Time: 19:26 Bed 20 Private MD: Diagnosis: Unspecified abdominal pain-with history of Crohn's;Nausea Presentation: 07/18 19:41 Presenting complaint: Patient states: "I was discharged from [facility] last Monday j with a bowel obstruction and sent home on steroids to help out before I got surgery. On Monday I was seen here for a bladder infection and had a CT that said my stomach looked better, but today the pain is unbearable.". Transition of care: patient was not received from another setting of care. Onset of symptoms was July 18, 2018. Risk Assessment: Do you want to hurt yourself or someone else? Patient reports no desire to harm self or others. Initial Sepsis Screen: Does the patient meet any 2 criteria? No. Patient's initial sepsis screen is negative. Does the patient have a suspected source of infection? No. Patient's initial sepsis screen is negative. Care prior to arrival: None. 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 - Social history:: Smoking status: Patient uses tobacco products, smokes one-half pack cigarettes per day. - Ebola Screening: : Patient negative for fever greater than or equal to 101.5 degrees Fahrenheit, and additional compatible Ebola Virus Disease symptoms. Screenin:03 Abuse screen: Denies threats or abuse. Nutritional screening: No deficits noted. jd3 Tuberculosis screening: No symptoms or risk factors identified. Fall Risk Ambulatory Aid- None/Bed Rest/Nurse Assist (0 pts). Gait- Normal/Bed Rest/Wheelchair (0 pts) Mental Status- Oriented to own ability (0 pts). Total Walters Fall Scale indicates No Risk (0-24 pts). Assessment: 19:40 General: Appears in no apparent distress. uncomfortable, Behavior is cooperative, jd3 appropriate for age, anxious. Pain: Complains of pain in abdomen Quality of pain is described as sharp, shooting, squeezing. Neuro: Level of Consciousness is awake, alert, obeys commands, Oriented to person, place, time, situation, Appropriate for age. Cardiovascular: Capillary refill < 3 seconds Patient's skin is warm and dry. Respiratory: Airway is patent Respiratory effort is even, unlabored, Respiratory pattern is regular, symmetrical. GI: Abdomen is round Bowel sounds present in right upper quadrant, left upper quadrant and right lower quadrant Abdomen is tender to palpation X 4 quads. Reports bloating, diarrhea, vomiting. : No signs and/or symptoms were reported regarding the genitourinary system. EENT: No signs and/or symptoms were reported regarding the EENT system. Derm: Skin is intact, Skin is dry, Skin is normal, Skin temperature is warm. Musculoskeletal: Circulation, motion, and sensation intact. Range of motion: intact in all extremities. 20:40 Reassessment: Patient appears in no apparent distress at this time. Patient and/or jd3 family updated on plan of care and expected duration. Pain level reassessed. Patient is alert, oriented x 3, equal unlabored respirations, skin warm/dry/pink. 22:04 Reassessment: Patient appears in no apparent distress at this time. Patient and/or jd3 family updated on plan of care and expected duration. Pain level reassessed. Patient is alert, oriented x 3, equal unlabored respirations, skin warm/dry/pink. Vital Signs: 19:45 BP 147 / 116; Pulse 94; Resp 19 S; Temp 98.4(O); Pulse Ox 100% on R/A; Weight 57.61 kg jd3 (R); Height 5 ft. 2 in. (157.48 cm) (R); Pain 10/10; 20:40 BP 107 / 93; Pulse 50; Resp 18 S; Pulse Ox 95% on R/A; jd3 22:04 BP 131 / 85; Pulse 51; Resp 16 S; Pulse Ox 96% on R/A; jd3 19:45 Body Mass Index 23.23 (57.61 kg, 157.48 cm) jd3 ED Course: 19:26 Patient arrived in ED. am2 19:30 Jorge Alberto Jewell PA is PHCP. cp 19:30 Richy Mathew MD is Attending Physician. cp 19:40 Marquis Chong, ANANYA is Primary Nurse. jd3 19:44 Triage completed. jd3 19:46 Arm band placed on. jd3 19:55 Inserted saline lock: 22 gauge in left forearm, using aseptic technique. Blood jd3 collected. 21:29 XRAY Abdomen Acute Series In Process Unspecified. EDMS 21:29 X-ray completed. Portable x-ray completed in exam room. Patient tolerated procedure az well. 22:03 Patient has correct armband on for positive identification. Placed in gown. Bed in low jd3 position. Call light in reach. Side rails up X 1. Adult w/ patient. 22:14 No provider procedures requiring assistance completed. IV discontinued, intact, jd3 bleeding controlled, No redness/swelling at site. Pressure dressing applied. Administered Medications: 20:13 Drug: NS 0.9% 1000 ml Route: IV; Rate: 1 bolus; Site: left forearm; jd3 22:15 Follow up: Response: No adverse reaction; IV Status: Completed infusion jd3 20:13 Drug: Dilaudid 1 mg Route: IVP; Site: left forearm; jd3 22:02 Follow up: Response: No adverse reaction jd3 20:14 Drug: Zofran 4 mg Route: IVP; Site: left forearm; jd3 22:02 Follow up: Response: No adverse reaction jd3 20:14 Drug: Pepcid 20 mg Route: IVP; Site: left forearm; jd3 22:02 Follow up: Response: No adverse reaction jd3 22:02 Drug: Hydrocodone-Acetaminophen (7.5 mg-325 mg) 1 tabs Route: PO; jd3 22:15 Follow up: Response: Medication administered at discharge. jd3 Outcome: 22:00 Discharge ordered by . cp 22:14 Discharged to home ambulatory, with family. jd3 22:14 Condition: stable 22:14 Discharge instructions given to patient, family, Instructed on discharge instructions, follow up and referral plans. medication usage, Demonstrated understanding of instructions, follow-up care, medications, Prescriptions given X 3. 22:16 Patient left the ED. jd3 Signatures: Dispatcher [employer] EDMS Jorge Alberto Jewell PA PA cp Moreno, Amanda am2 Marquis Chong RN RN jd3 Kacey Lee Corrections: (The following items were deleted from the chart) 20:45 19:40 GI: Abdomen is round Abdomen is tender to palpation X 4 quads. Reports bloating, jd3 diarrhea, vomiting, jd3 22:15 22:15 Response: No adverse reaction jd3 jd3 22:15 22:15 Response: Medication administered at discharge.; IV Status: Completed infusion [id number]
--- NOTE | 2018-07-18 22:07 | RAD REPORT ---
EXAM DESCRIPTION: RAD - Abdomen Acute Series - 07/18/2018 9:32 pm CLINICAL HISTORY: ABD PAIN COMPARISON: Chest Single View dated 11/22/2017; Abdomen Pelvis W Contrast dated 07/14/2018; Abdomen Pelvis W Contrast dated 07/06/2018 FINDINGS: Frontal projection of the chest shows emphysematous but clear lungs. No subdiaphragmatic f ree air. Bowel gas pattern shows a few mildly prominent bowel loops, however, no obstructive pattern seen. Cholecystectomy clips. Stimulator device is noted.
[2018-07-18] MEDS ORDERED: HYDROCODONE/APAP 7.5/325 MG TAB ONE (22:11)
[2018-07-18 22:49] VITALS: TEMP 98.4
[2018-07-18 22:52] VITALS: BP 131/85; O2SAT 96
== END 2018-07-18 22:16 | disposition home or self-care (01) ==
LOC: ER 19:26
DX: R10.9 Unspecified abdominal pain (principal); R11.0 Nausea; K50.90 Crohn's disease, unspecified, without complications; F17.210 Nicotine dependence, cigarettes, uncomplicated; G40.909 Epilepsy, unspecified, not intractable, without status epilepticus; F31.9 Bipolar disorder, unspecified; E03.9 Hypothyroidism, unspecified; Z88.1 Allergy status to other antibiotic agents; Z88.8 Allergy status to other drugs, medicaments and biological substances
CPT/HCPCS: 96361; 85025; 80048; 36415; 81025; 80076; 81003; 83690; 74022; 96375; 96374; 99284; J1170; J7030; J2405

== ENCOUNTER 2018-10-15 14:48 | Observation (INO) | payer OTHER ==
--- OUTSIDE RECORDS SUMMARY | 2018-10-15 14:54 | XMS REPORT | Clinical Summary ---
:1970 Author Organization [facility] Address [address] [place] [id number] Care Team Providers Name Role Phone Eryn Wall MD Primary Care Provider Unavailable Allergies Active Allergy Reactions Severity Noted Date Comments Ciprofloxacin Swelling Medium 07/18/2017 Promethazine Other (See Comments) 07/18/2017 Face twitch Medications Medication Sig Dispensed Refills Start Date End Date Status pantoprazole (PROTONIX) Take 40 mg by 0 Active 40 MG EC tablet mouth daily. budesonide (UCERIS) 9 mg Take 9 mg by 0 Active tablet, delayed & mouth daily as ext.release needed. methocarbamol (ROBAXIN) Take 500 mg by 0 Active 500 MG tablet mouth every 6 (six) hours. Active Problems Problem Noted Date Abdominal pain 08/19/2017 Small bowel obstruction 08/14/2017 Colitis presumed infectious 07/19/2017 Social History Tobacco Use Types Packs/Day Years Used Date Never Smoker Smokeless Tobacco: Never Used Alcohol Use Drinks/Week oz/Week Comments No Sex Assigned at Date Recorded Not on file Job Start 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 Last Filed Vital Signs Not on file Plan of Treatment Health Maintenance Due Date Last Done Comments INFLUENZA VACCINE 11/29/2018 Implants Implanted Type Area Woven Blind Loom Tender Device Identifier Shelf Expiration Model / Date Serial / Lot Pain Pump-07/18/2009 Implanted: 07/18/2009 (Quantity not on file) Results Not on fileafter 10/14/2017 Insurance Payer Benefit Plan / Subscriber ID Effective Dates Phone Address Type Group MEDICARE MEDICARE PART A xxxxxxxxxx 2005-Present [place], [place] Medicare AND B MEDICAID MEDICAID xxxxxxxxx 2017-Present Medicaid
--- OUTSIDE RECORDS SUMMARY | 2018-10-15 14:56 | XMS REPORT | Clinical Summary ---
:1970 Author Organization [facility] Address [address] [place] [address] Care Team Providers Name Role Phone Mychal Dai Primary Care Provider Allergies Active Allergy Reactions Severity Noted Date Comments Ciprofloxacin Swelling, Anaphylaxis, High 10/25/2011 Makes tongue swell Hives Morphine Other (See Comments) Low 08/17/2018 Patient said does not work for her. Promethazine Other (See Comments) Medium 07/06/2018 Makes mouth/jaw twitch/jerk Promethazine Hcl Anaphylaxis, Other (See High 10/25/2011 Muscle twiching Comments) Medications Medication Sig Dispensed Refills Start End Date Status Date escitalopram Take 10 mg by 0 Active oxalate (LEXAPRO) mouth daily. 10 MG tabletIndications: Post Traumatic Stress Disorder pantoprazole Take 40 mg by 0 Active (PROTONIX) 40 MG mouth daily. tabletIndications: heartburn, chronic indigestion mesalamine Take 2,400 mg by 0 Active (LIALDA) 1.2 gram mouth daily with EC breakfast. tabletIndications: Crohn's disease clonazePAM Take 1 mg by mouth 0 Active (KLONOPIN) 1 MG 4 (four) times tabletIndications: daily . PTSD multivitamin,tx-ir Take 1 tablet by 0 Active on-minerals Tab mouth daily. terconazole Place 1 applicator 0 Active (TERAZOL 7) 0.4 % vaginally nightly. vaginal cream STELARA 90 mg/mL INJECT 90MG 3 Active Syrg SUBCUTANEOUSLY 8 8 WEEKS AFTER INNDUCTION DOSE THEN EVERY 8 WEEKS THEREAFTER metoclopramide HCl Take 10 mg by 0 Active (REGLAN) 10 MG mouth 4 (four) tablet times daily as needed for Nausea. dicyclomine Take 40 mg by 0 Active (BENTYL) 20 mg mouth every 6 tablet (six) hours. QUEtiapine TK 1 T PO QHS 0 Active (SEROQUEL) 100 MG 9 tablet celecoxib Take 1 capsule 40 capsule 0 08/22/19 Active (CELEBREX) 100 MG (100 mg total) by 9 20 capsule mouth 2 (two) times daily. gabapentin Take 1 capsule 90 capsule 0 08/23/19 Active (NEURONTIN) 300 MG (300 mg total) by 9 20 capsule mouth 3 (three) times daily. acetaminophen Take 1,000 mg by 0 07/22/19 Discontinued (TYLENOL) 500 MG mouth every 6 19 tabletIndications: (six) hours as Pain needed for Pain. HYDROcodone-acetam Take 1 tablet by 30 tablet 0 07/22/19 Discontinued inophen (NORCO mouth every 6 01 17 7.5-325) 7.5-325 (six) hours as mg per tablet needed for up to 10 days. Max Daily Amount: 4 tablets predniSONE Take 40mg daily 50 tablet 0 07/24/19 Discontinued (DELTASONE) 20 MG times 2 weeks and 01 17 tablet then 20mg daily times 2 weeks. Further dosing per GI Dr. Huynh. sulfamethoxazole-t Take 1 tablet by 0 07/22/19 Discontinued rimethoprim mouth 2 (two) 19 (BACTRIM DS) times daily. 800-160 mg per tablet predniSONE 40mg daily times 3 60 tablet 0 08/18/19 Discontinued (DELTASONE) 10 MG days the 01 17 tablet [id number]- 5mg each for 3 days and then stop. fluconazole Take 1 tablet (100 7 tablet 0 08/01/19 (DIFLUCAN) 100 MG mg total) by mouth 9 19 tablet daily for 7 days. HYDROcodone-acetam Take 1 tablet by 30 tablet 0 08/03/19 inophen (NORCO mouth every 6 01 17 5-325) 5-325 mg (six) hours for 10 per tablet days. Max Daily Amount: 4 tablets nystatin Take 5 mLs 200 mL 0 08/03/19 (MYCOSTATIN) (500,000 Units 01 17 100,000 unit/mL total) by mouth 4 suspension (four) times daily for 10 days. HYDROcodone-acetam Take 1 tablet by 0 08/23/19 Discontinued inophen (NORCO mouth every 6 19 7.5-325) 7.5-325 (six) hours as mg per tablet needed for Pain. acyclovir Take 1,000 mg by 0 08/23/19 Discontinued (ZOVIRAX) 800 MG mouth 3 (three) 19 tablet times daily. dicyclomine dicyclomine 20 mg 0 08/22/19 Discontinued (BENTYL) 20 mg tablet 19 tablet escitalopram escitalopram 10 mg 0 08/22/19 Discontinued oxalate (LEXAPRO) tablet 19 10 MG tablet mesalamine daily. 0 08/22/19 Discontinued (LIALDA) 1.2 gram 8 19 EC tablet metoclopramide HCl metoclopramide 10 mg tablet 0 08/22/19 Discontinued (REGLAN) 10 MG 1 TAB PO EVERY 6 HOURS; 30MIN BEFORE MEALS 19 tablet pantoprazole daily. 0 08/22/19 Discontinued (PROTONIX) 40 MG 19 tablet clindamycin Take 1 capsule 28 capsule 0 08/24/19 Discontinued (CLEOCIN) 300 MG (300 mg total) by 9 capsule mouth every 6 (six) hours for 7 days. gabapentin Take 1 capsule 90 capsule 0 08/24/19 Discontinued (NEURONTIN) 300 MG (300 mg total) by 9 capsule mouth 3 (three) times daily. metroNIDAZOLE Take 1 tablet (500 30 tablet 0 08/24/19 Discontinued (FLAGYL) 500 MG mg total) by mouth 9 tablet every 8 (eight) hours for 10 days. nicotine (NICODERM Place 1 patch onto 28 patch 0 09/22/19 CQ) 7 mg/24 hr the skin daily for 9 patch 30 days. oxyCODONE (OXY-IR) Take 1 tablet (10 30 tablet 0 09/02/19 10 mg tablet mg total) by mouth 9 every 4 (four) hours as needed for up to 10 days. Max Daily Amount: [address] 1 patch onto 20 patch 0 09/23/19 (LIDODERM) 5 % the skin daily for 9 19 patch 30 days Remove & Discard patch within 12 hours or as directed by MD. nicotine (NICODERM Place 1 patch onto 28 patch 0 09/23/19 CQ) 7 mg/24 hr the skin daily for 9 19 patch 30 days. traMADol (ULTRAM) Take 2 tablets 30 tablet 0 09/03/19 50 mg tablet (100 mg total) by 9 19 mouth every 6 (six) hours for 10 days. Max Daily Amount: 400 mg clindamycin Take 1 capsule 56 capsule 0 09/07/19 (CLEOCIN) 300 MG (300 mg total) by 9 19 capsule mouth every 6 (six) hours for 14 days. metroNIDAZOLE Take 1 tablet (500 42 tablet 0 09/07/19 (FLAGYL) 500 MG mg total) by mouth 9 tablet every 8 (eight) hours for 14 days. Active Problems Problem Noted Date Bilateral lower abdominal pain 07/21/2018 Crohn's disease 07/06/2018 SBO (small bowel obstruction) 07/06/2018 Encounters Date Type Specialty Care Team Description 09/18/2018 Hospital Computed Tomography Jani Sanchez, Incisional hernia, Encounter without obstruction or 1, [facility] gangrene [address] Room 09/18/2018 Outside Orders Central Scheduling Jani Sanchez, Incisional hernia , without obstruction or gangrene (Primary Dx) 09/04/2018 Hospital Radiology [place], Crohn's disease of both small and large intestine with other complication (HCC); Encounter Cristela Medrano NP Intestinal malabsorption, unspecified type; Heavy smoker; History of steroid therapy; Encounter for imaging to assess osteopenia 09/04/2018 Outside Orders Central Scheduling [place], Crohn's disease of both small and large intestine with other complication (HCC) (Primary Dx); Cristela Medrano NP Intestinal malabsorption, unspecified type; Heavy smoker; History of steroid therapy; Encounter for imaging to assess osteopenia 08/22/2018 Orders Only General Internal Medicine 08/21/2018 Travel 08/20/2018 Anesthesia Event Vj Campbell MD 08/20/2018 Surgery Sanchez, Jani, LAPAROSCOPY,COLECTOMY MD RIGHT 08/20/2018 [facility] Internal [facility], Jani, Crohn's disease of - Encounter Medicine small intestine with 08/23/2018 fistula (HCC) 08/17/2018 [facility] Pre-Admission Testing Resource, Oqsc Encounter Preadmit Phone 08/16/2018 [facility] Computed Tomography [facility], Crohn's disease with Encounter MD intestinal 1, [facility] obstruction, [address] Room unspecified gastrointestinal tract location (HCC) 08/07/2018 [facility] Magnetic Resonance [facility], Crohn's disease with Encounter Imaging MD intestinal 1.5, [facility] obstruction, Jase Mr unspecified gastrointestinal tract location (HCC) 08/07/2018 Hospital Magnetic Resonance System, Crohn's disease with Encounter Imaging Provider Not intestinal In obstruction, 1.5, [facility] unspecified Jase Mr gastrointestinal tract location (HCC) 08/06/2018 Outside Orders Central Scheduling [facility], Crohn's disease with MD intestinal obstruction, unspecified gastrointestinal tract location (HCC) (Primary Dx) 07/22/2018 Travel 07/20/2018 [facility] Internal Fer[place], Bilateral lower abdominal pain (Primary Dx); - Encounter Medicine Santiago Banks MD Nausea and vomiting in adult patient; 07/23/2018 Doris, Crohn's disease of small and large intestines with complication (HCC); hKushbu History of bowel resection; MD Karishma Tobacco abuse; Joana Ramirez Oral candidiasis; MD Laney Uncontrolled pain; All Johnson, Crohn's disease of small intestine with intestinal obstruction (HCC) 07/11/2018 Anesthesia Event Gastroenterology Terri Laughlin MD 07/11/2018 Surgery Gastroenterology [place], COLONOSCOPY,BIOPSY King Merchant MD 07/10/2018 Travel 07/06/2018 [facility] Internal [place], SBO (small bowel obstruction ) (HCC); - Encounter Medicine Esa-Juan Crohn's disease of both small and large intestine with other complication (HCC); 07/11/2018 Donny, Smoker; Endometriosis; Richieunzonia, Crohn's disease of small intestine with intestinal obstruction (HCC); MD Colby Other chronic pain Daxa Caballero MD Waheed, Umar, MD after 10/14/2017 Family History Medical History Relation Name Comments Cancer Maternal Grandfather Dementia Maternal Grandmother Endometriosis Maternal Grandmother Suicidality Maternal Uncle Endometriosis Mother Relation Name Status Comments Maternal Grandfather Maternal Grandmother Maternal Uncle Mother Social History Tobacco Use Types Packs/Day Years Used Date Current Every Day Smoker 2 36 Smokeless Tobacco: Never Used Tobacco Cessation: Ready to Quit: Yes Comments: currently 1/2 ppd Alcohol Use Drinks/Week oz/Week Comments No social Alcohol Habits Answer Date Recorded How often [...] Vital Sign Reading Time Taken Blood Pressure 132/87 08/23/2018 7:57 AM CDT Pulse 92 08/23/2018 7:57 AM CDT Temperature 36.8 C (98.2 F) 08/23/2018 7:57 AM CDT Respiratory Rate 17 08/23/2018 7:57 AM CDT Oxygen Saturation 92% 08/23/2018 7:57 AM CDT Inhaled Oxygen Concentration 21% 07/06/2018 10:00 PM 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 XR DXA BONE DENSITY Routine 09/04/2018 1:20 Crohn's disease of Results for this STUDY PM CDT both small and large procedure are in intestine with other the results complication (HCC) section. Intestinal malabsorption, unspecified type Heavy smoker History of steroid therapy Encounter for imaging to assess osteopenia RHYTHM STRIP - SCAN 08/27/2018 10:30 AM CDT CBC (HEMOGRAM ONLY) Routine 08/23/2018 6:05 Results for this AM CDT procedure are in the results section. PHOSPHORUS Routine 08/23/2018 6:05 Results for this AM CDT procedure are in the results section. MAGNESIUM Routine 08/23/2018 6:05 Results for this AM CDT procedure are in the results section. BASIC METABOLIC Routine 08/23/2018 6:05 Results for this PANEL (7) AM CDT procedure are in the results section. ECG 12-LEAD Routine 08/22/2018 6:33 AM CDT Procedure Note - Interface, External Ris In - 08/22/2018 6:35 AM CDT Ventricular Rate 123 BPM Atrial Rate 123 BPM P-R Interval 120 ms QRS Duration 84 ms Q-T Interval 314 ms QTC Calculation(Bazett) 449 ms P [place] 37 degrees R [place] 67 degrees T [place] 30 degrees Sinus tachycardia Otherwise normal ECG No previous ECGs available ECG 12-LEAD STAT 08/22/2018 6:33 Results for this AM CDT procedure are in the results section. CBC (HEMOGRAM ONLY) Routine 08/22/2018 2:13 Results for this AM CDT procedure are in the results section. PHOSPHORUS Routine 08/22/2018 2:13 Results for this AM CDT procedure are in the results section. MAGNESIUM Routine 08/22/2018 2:13 Results for this AM CDT procedure are in the results section. BASIC METABOLIC Routine 08/22/2018 2:13 Results for this PANEL (7) AM CDT procedure are in the results section. TRANSFUSION SERVICE 08/21/2018 6:11 REPORT - SCAN PM CDT CBC (HEMOGRAM ONLY) Routine 08/21/2018 3:08 Results for this AM CDT procedure are in the results section. PHOSPHORUS Routine 08/21/2018 3:08 Results for this AM CDT procedure are in the results section. MAGNESIUM Routine 08/21/2018 3:08 Results for this AM CDT procedure are in the results section. BASIC METABOLIC Routine 08/21/2018 3:08 Results for this PANEL (7) AM CDT procedure are in the results section. POCT-GLUCOSE METER Routine 08/20/2018 11:35 Results for this AM CDT procedure are in the results section. TISSUE EXAM AP Routine 08/20/2018 10:03 Results for this AM CDT procedure are in the results section. ANESTHESIA SPINAL Routine 08/20/2018 8:20 Results for this BLOCK AM CDT procedure are in the results section. LAPAROSCOPY,COLECTO 08/20/2018 8:00 Crohn's disease of MY RIGHT AM CDT small intestine without complication (HCC) Case Notes 2 HRS POCT-GLUCOSE METER Routine 08/20/2018 6:25 Results for AM CDT this procedure are in the results section. TYPE AND SCREEN, STAT 08/20/2018 6:24 Results for AUTOMATED AM CDT this procedure are in the results section. CT ABDOMEN/PELVIS Routine 08/16/2018 2:03 Crohn's disease with Results for WITH IV CONTRAST PM CDT intestinal this procedure obstruction, are in the unspecified results gastrointestinal tract section. location (HCC) POCT-GLUCOSE METER Routine 07/23/2018 8:16 Results for AM CDT this procedure are in the results section. PHOSPHORUS Routine 07/23/2018 4:50 Results for AM CDT this procedure are in the results section. MAGNESIUM Routine 07/23/2018 4:50 Results for AM CDT this procedure are in the results section. HEPATIC FUNCTION Routine 07/23/2018 4:50 Results for PANEL AM CDT this procedure are in the results section. BASIC METABOLIC Routine 07/23/2018 4:50 Results for PANEL (7) AM CDT this procedure are in the results section. POCT-GLUCOSE METER Routine 07/22/2018 9:03 Results for PM CDT this procedure are in the results section. POCT-GLUCOSE METER Routine 07/22/2018 1:07 Results for PM CDT this procedure are in the results section. POCT-GLUCOSE METER Routine 07/22/2018 8:23 Results for AM CDT this procedure are in the results section. CBC W/PLT COUNT & Routine 07/22/2018 4:44 Results for AUTO DIFFERENTIAL AM CDT this procedure are in the results section. PREALBUMIN Routine 07/22/2018 4:44 Results for AM CDT this procedure are in the results section. C-REACTIVE PROTEIN Routine 07/22/2018 4:44 Results for AM CDT this procedure are in the results section. CBC W/PLT COUNT & Routine 07/22/2018 4:44 Results for AUTO DIFFERENTIAL AM CDT this procedure are in the results section. PHOSPHORUS Routine 07/22/2018 4:44 Results for AM CDT this procedure are in the results section. MAGNESIUM Routine 07/22/2018 4:44 Results for AM CDT this procedure are in the results section. HEPATIC FUNCTION Routine 07/22/2018 4:44 Results for PANEL AM CDT this procedure are in the results section. BASIC METABOLIC Routine 07/22/2018 4:44 Results for PANEL (7) AM CDT this procedure are in the results section. POCT-GLUCOSE METER Routine 07/21/2018 11:37 Results for PM CDT this procedure are in the results section. TRANSFUSION SERVICE 07/21/2018 5:53 REPORT - SCAN PM CDT STOOL PATH CHARGE Routine 07/21/2018 1:04 Results for PM CDT this procedure are in the results section. SHIGA TOXIN SCREEN Routine 07/21/2018 1:04 Results for PM CDT this procedure are in the results section. STOOL CULTURE + Routine 07/21/2018 1:04 Results for SHIGA TOXIN PM CDT this procedure are in the results section. C. DIFFICILE GDH Routine 07/21/2018 1:03 Results for TOXIN PM CDT this procedure are in the results section. CT ABDOMEN/PELVIS STAT 07/21/2018 3:48 Results for WITHOUT IV CONTRAST AM CDT this procedure are in the results section. POCT , STAT 07/20/2018 10:51 Results for URINE PM CDT this procedure are in the results section. ABORH, MANUAL Routine 07/20/2018 10:48 Results for PM CDT this procedure are in the results section. CBC W/PLT COUNT & STAT 07/20/2018 9:32 Results for AUTO DIFFERENTIAL PM CDT this procedure are in the results section. TYPE AND SCREEN, STAT 07/20/2018 9:32 Results for AUTOMATED PM CDT this procedure are in the results section. APTT STAT 07/20/2018 9:32 Results for PM CDT this procedure are in the results section. PROTHROMBIN TIME/INR STAT 07/20/2018 9:32 Results for PM CDT this procedure are in the results section. LIPASE STAT 07/20/2018 9:32 Results for PM CDT this procedure are in the results section. COMPREHENSIVE STAT 07/20/2018 9:32 Results for METABOLIC PANEL PM CDT this procedure are in the results section. CBC W/PLT COUNT & STAT 07/20/2018 9:32 Results for AUTO DIFFERENTIAL PM CDT this procedure are in the results section. REPORT OF PROCEDURE 07/11/2018 9:45 - ENDOSCOPY URL AM CDT TISSUE EXAM AP Routine 07/11/2018 9:24 Results for AM CDT this procedure are in the results section. COLONOSCOPY,BIOPSY 07/11/2018 9:00 Lower abdominal pain AM CDT CBC W/PLT COUNT & Routine 07/11/2018 2:51 Results for AUTO DIFFERENTIAL AM CDT this procedure are in the results section. BASIC METABOLIC Routine 07/11/2018 2:51 Results for PANEL (7) AM CDT this procedure are in the results section. CBC W/PLT COUNT & Routine 07/11/2018 2:51 Results for AUTO DIFFERENTIAL AM CDT this procedure are in the results section. CBC W/PLT COUNT & Routine 07/10/2018 5:23 Results for AUTO DIFFERENTIAL AM CDT this procedure are in the results section. BASIC METABOLIC Routine 07/10/2018 5:23 Results for PANEL (7) AM CDT this procedure are in the results section. CBC W/PLT COUNT & Routine 07/10/2018 5:23 Results for AUTO DIFFERENTIAL AM CDT this procedure are in the results section. CBC W/PLT COUNT & Routine 07/09/2018 6:25 Results for AUTO DIFFERENTIAL AM CDT this procedure are in the results section. BASIC METABOLIC Routine 07/09/2018 6:25 Results for PANEL (7) AM CDT this procedure are in the results section. CBC W/PLT COUNT & Routine 07/09/2018 6:25 Results for AUTO DIFFERENTIAL AM CDT this procedure are in the results section. CT ABDOMEN & PELVIS MANASA 07/08/2018 6:32 Results for - ENTEROGRAPHY AM CDT this procedure are in the results section. CBC W/PLT COUNT & Routine 07/08/2018 5:50 Results for AUTO DIFFERENTIAL AM CDT this procedure are in the results section. BASIC METABOLIC Routine 07/08/2018 5:50 Results for PANEL (7) AM CDT this procedure are in the results section. CBC W/PLT COUNT & Routine 07/08/2018 5:50 Results for AUTO DIFFERENTIAL AM CDT this procedure are in the results section. CBC W/PLT COUNT & Routine 07/07/2018 3:30 Results for AUTO DIFFERENTIAL AM SENIOR UNIX ADMINISTRATOR this procedure are in the results section. BASIC METABOLIC Routine 07/07/2018 3:30 Results for PANEL (7) AM SENIOR UNIX ADMINISTRATOR this procedure are in the results section. CBC W/PLT COUNT & Routine 07/07/2018 3:30 Results for AUTO DIFFERENTIAL AM SENIOR UNIX ADMINISTRATOR this procedure are in the results section. STOOL PATH CHARGE Routine 07/06/2018 6:29 Results for PM SENIOR UNIX ADMINISTRATOR this procedure are in the results section. SHIGA TOXIN SCREEN Routine 07/06/2018 6:29 Results for PM SENIOR UNIX ADMINISTRATOR this procedure are in the results section. STOOL CULTURE + Routine 07/06/2018 6:29 Results for SHIGA TOXIN PM SENIOR UNIX ADMINISTRATOR this procedure are in the results section. C. DIFFICILE GDH Routine 07/06/2018 6:28 Results for TOXIN PM SENIOR UNIX ADMINISTRATOR this procedure are in the results section. XR CHEST 1 VIEW Routine 07/06/2018 1:20 Results for PORTABLE/BEDSIDE PM SENIOR UNIX ADMINISTRATOR this procedure are in the results section. BLOOD CULTURE STAT 07/06/2018 11:14 Results for AM SENIOR UNIX ADMINISTRATOR this procedure are in the results section. LACTIC ACID, VENOUS Routine 07/06/2018 11:13 Results for AM SENIOR UNIX ADMINISTRATOR this procedure are in the results section. BLOOD CULTURE STAT 07/06/2018 10:50 Results for AM SENIOR UNIX ADMINISTRATOR this procedure are in the results section. CBC W/PLT COUNT & Routine 07/06/2018 10:49 Results for AUTO DIFFERENTIAL AM SENIOR UNIX ADMINISTRATOR this procedure are in the results section. PHOSPHORUS Routine 07/06/2018 10:49 Results for AM SENIOR UNIX ADMINISTRATOR this procedure are in the results section. MAGNESIUM Routine 07/06/2018 10:49 Results for AM SENIOR UNIX ADMINISTRATOR this procedure are in the results section. HEPATIC FUNCTION Routine 07/06/2018 10:49 Results for PANEL AM SENIOR UNIX ADMINISTRATOR this procedure are in the results section. BASIC METABOLIC Routine 07/06/2018 10:49 Results for PANEL (7) AM SENIOR UNIX ADMINISTRATOR this procedure are in the results section. CBC W/PLT COUNT & Routine 07/06/2018 10:49 Results for AUTO DIFFERENTIAL AM SENIOR UNIX ADMINISTRATOR this procedure are in the results section. RAPID DRUG SCREEN, STAT 07/06/2018 10:14 Results for URINE AM SENIOR UNIX ADMINISTRATOR this procedure are in the results section. URINALYSIS W/ REFLEX Routine 07/06/2018 10:14 Results for URINE CULTURE AM SENIOR UNIX ADMINISTRATOR this procedure are in the results section. after 10/14/[address] Abdomen/Pelvis with IV Contrast (09/18/2018 4:13 PM CDT)Only the most recent of2 resultswithin the time period is included. Specimen Narrative Performed At [facility] CT Abdomen And Pelvis with Intravenous Contrast INDICATION: Incisional hernia, Crohn's disease status post right hemicolectomy; recent revision ileocolectomy (08/20/2018) K43.2 TECHNIQUE: Thin collimation axial images obtained from the diaphragm to the level of the pubic symphysis following the uneventful administration of 150 cc of low osmolar, nonionic intravenous contrast. Dose reduction techniques used: Automated exposure control, adjustment of the mAs and/or kVp according to patient size, standardized low-dose protocol, and/or iterative reconstruction technique. RADIATION DOSE: Total DLP: 405.9 mGy*cm Estimated effective dose: (DLP x 0.015 x size factor) mSv CTDIvol has been reviewed. It is below the limits set by the Radiation Protocol Committee (RPC). COMPARISON: CT abdomen/pelvis 08/16/2018. ABDOMEN FINDINGS: Lung Bases: Mild dependent atelectasis. Visualized portion of the mediastinum is normal. Liver: Subcentimeter low attenuating lesion in segment two is stable. No new hepatic findings. Gallbladder: Absent. No intrahepatic biliary ductal dilatation. Common bile duct measures 7 mm and is suggestive of reservoir effect. Pancreas: Normal attenuation without mass or ductal dilatation. Spleen: Normal in size.No evidence of mass.. Adrenal Glands: No evidence for mass. Kidneys: Right: Normal enhancement.Low attenuating lesion in the interpolar cortex measures 13 mm and is stable.No hydronephrosis. Left:Normal enhancement.A cyst in the lateral upper pole measures 3.3 cm and contains a curvilinear calcification in the wall. This is stable. A cyst in the lateral interpolar cortex measures 9 mm and is stable. No hydronephrosis. Lymph Nodes: No enlarged abdominal or retroperitoneal lymph nodes. Aorta: Normal in diameter PELVIS FINDINGS: Bowel: Stomach:Normal. Small and large bowel: Postoperative changes with primary ileocolic anastomosis there is beam hardening artifact at the operative site due to intrathecal pump. There is a small amount of inflammation lateral and inferior to the staple line that is new and likely related to surgery. There are no loculated fluid collections. The bowel is normal in diameter with normal wall thickness. Normal mural enhancement. Bladder: Underdistended but is normal. The uterus is absent. There are no adnexal masses. Bones: Wedge-shaped compression deformity of L2 is stable. Degenerative changes of the lower thoracic and upper lumbar spine are stable. Intrathecal catheter enters the spine at L2-3 and terminates at T11-12. Soft tissues: Midline incision is well-healed. No evidence of hernia. IMPRESSION: 1. Small amount of peritoneal inflammation in the right hemiabdomen secondary to recent surgery. The bowel demonstrates no evidence of dilatation or mural hyperemia. No fluid collection. 2. No evidence of incisional hernia. 3. Stable renal cysts. Annual surveillance of the left upper pole cyst with CT is recommended to confirm stability. Signed: Melony Henriquez MD Report Verified Date/Time:09/20/2018 09:48:51 Procedure Note Interface, External Ris In - 09/20/2018 9:51 AM CDT FINAL REPORT CT Abdomen And Pelvis with Intravenous Contrast INDICATION: Incisional hernia, Crohn's disease status post right hemicolectomy; recent revision ileocolectomy (08/20/2018) K43.2 TECHNIQUE: Thin collimation axial images obtained from the diaphragm to the level of the pubic symphysis following the uneventful administration of 150 cc of low osmolar, nonionic intravenous contrast. Dose reduction techniques used: Automated exposure control, adjustment of the mAs and/or kVp according to patient size, standardized low-dose protocol, and/or iterative reconstruction technique. RADIATION DOSE: Total DLP: 405.9 mGy*cm Estimated effective dose: (DLP x 0.015 x size factor) mSv CTDIvol has been reviewed. It is below the limits set by the Radiation Protocol Committee (RPC). COMPARISON: CT abdomen/pelvis 08/16/2018. ABDOMEN FINDINGS: Lung Bases: Mild dependent atelectasis. Visualized portion of the mediastinum is normal. Liver: Subcentimeter low attenuating lesion in segment two is stable. No new hepatic findings. Gallbladder: Absent. No intrahepatic biliary ductal dilatation. Common bile duct measures 7 mm and is suggestive of reservoir effect. Pancreas: Normal attenuation without mass or ductal dilatation. Spleen: Normal in size. No evidence of mass.. Adrenal Glands: No evidence for mass. Kidneys: Right: Normal enhancement. Low attenuating lesion in the interpolar cortex measures 13 mm and is stable. No hydronephrosis. Left: Normal enhancement. A cyst in the lateral upper pole measures 3.3 cm and contains a curvilinear calcification in the wall. This is stable. A cyst in the lateral interpolar cortex measures 9 mm and is stable. No hydronephrosis. Lymph Nodes: No enlarged abdominal or retroperitoneal lymph nodes. Aorta: Normal in diameter PELVIS FINDINGS: Bowel: Stomach: Normal. Small and large bowel: Postoperative changes with primary ileocolic anastomosis there is beam hardening artifact at the operative site due to intrathecal pump. There is a small amount of inflammation lateral and inferior to the staple line that is new and likely related to surgery. There are no loculated fluid collections. The bowel is normal in diameter with normal wall thickness. Normal mural enhancement. Bladder: Underdistended but is normal. The uterus is absent. There are no adnexal masses. Bones: Wedge-shaped compression deformity of L2 is stable. Degenerative changes of the lower thoracic and upper lumbar spine are stable. Intrathecal catheter enters the spine at L2-3 and terminates at T11-12. Soft tissues: Midline incision is well-healed. No evidence of hernia. IMPRESSION: 1. Small amount of peritoneal inflammation in the right hemiabdomen secondary to recent surgery. The bowel demonstrates no evidence of dilatation or mural hyperemia. No fluid collection. 2. No evidence of incisional hernia. 3. Stable renal cysts. Annual surveillance of the left upper pole cyst with CT is recommended to confirm stability. Signed: Melony Henriquez MD Report Verified Date/Time: 09/20/2018 09:48:51 Performing Organization Address City/State/Zipcode Phone Number [facility] XR DXA Bone Density Study (09/04/2018 1:20 PM CDT) Specimen Narrative Performed At FINAL REPORT [facility] Exam: Bone mineral density study. History:Osteopenia. Comparison:None Discussion: Evaluation of the left hip, and lumbar spine was performed utilizing DEXA Hologic bone densitometer. The study is technically adequate. Left hip total bone mineral density: 0.636gm/cm2, T-score is -2.5, Z-score is -2.2. Left hip femoral neck bone mineral density: 0.596gm/cm2, T-score is -2.3, Z-score is -1.7. Lumbar spine total bone mineral density: 0.809gm/cm2, T-score is -2.2, Z-score is -1.6. Impression: 1. Osteoporosis of the left hip, fracture risk is high 2. Osteopenia of the lumbar spine, fracture risk is increased Least significant change (LSC) for bone mineral density as provided by tool and die assembler is 0.023 g/cm2 for lumbar spine and 0.027 g/cm2 for total hip. 10 -year fracture risk per WHO Fracture Risk Assessment Tool (FRAX) for: Not reported because some T-scores at or below -2.5 The patient's fracture risk is compared to an age-matched control. Medical evaluation for secondary causes of low bone bone mineral density may be appropriate. Correlate clinically for the necessity and timing of the next bone mineral density study. Signed: Art Bermeo MD Report Verified Date/Time:09/04/2018 13:22:29 Procedure Note Interface, External Ris In - 09/04/2018 1:24 PM CDT FINAL REPORT Exam: Bone mineral density study. History: Osteopenia. Comparison: None Discussion: Evaluation of the left hip, and lumbar spine was performed utilizing DEXA Hologic bone densitometer. The study is technically adequate. Left hip total bone mineral density: 0.636gm/cm2, T-score is -2.5, Z-score is -2.2. Left hip femoral neck bone mineral density: 0.596gm/cm2, T-score is -2.3, Z-score is -1.7. Lumbar spine total bone mineral density: 0.809gm/cm2, T-score is -2.2, Z-score is -1.6. Impression: 1. Osteoporosis of the left hip, fracture risk is high 2. Osteopenia of the lumbar spine, fracture risk is increased Least significant change (LSC) for bone mineral density as provided by tool and die assembler is 0.023 g/cm2 for lumbar spine and 0.027 g/cm2 for total hip. 10 -year fracture risk per WHO Fracture Risk Assessment Tool (FRAX) for: Not reported because some T-scores at or below -2.5 The patient's fracture risk is compared to an age-matched control. Medical evaluation for secondary causes of low bone bone mineral density may be appropriate. Correlate clinically for the necessity and timing of the next bone mineral density study. Signed: Art Bermeo MD Report Verified Date/Time: 09/04/2018 13:22:29 Performing Organization Address City/State/Zipcode Phone Number GE RIS RHYTHM STRIP - SCAN (08/27/2018 10:30 AM CDT) Narrative Performed At CBC (Hemogram only) (08/23/2018 6:05 AM CDT)Only the most recent of3 resultswithin the time period is included. WBC 5.5 3.5 - 10.5 K/L [facility] RBC 3.31 (L) 3.93 - 5.22 M/L [facility] Hemoglobin 10.4 (L) 11.2 - 15.7 GM/DL [facility] Hematocrit 34.9 34.1 - 44.9 % [facility] MCV 105.4 (H) 79.4 - 94.8 fL [facility] MCH 31.4 25.6 - 32.2 pg [facility] MCHC 29.8 (L) 32.2 - 35.5 GM/DL [facility] RDW 15.4 (H) 11.7 - 14.4 % [facility] Platelets 185 150 - 450 K/CU MM [facility] MPV 8.9 (L) 9.4 - 12.3 fL [facility] nRBC 0 0 - 0 /100 WBC [facility] Specimen Blood Performing Organization Address City/[facility]/Zipcode Phone Number [facility] [address] [place] [address] CENTER Phosphorus (08/23/2018 6:05 AM CDT)Only the most recent of6 resultswithin the time period is included. Phosphorus 2.9 2.3 - 4.7 mg/dL [facility] Specimen Blood Performing Organization Address City/[facility]/Zipcode Phone Number [facility] [address] [place] [address] [phone] CENTER Magnesium (08/23/2018 6:05 AM CDT)Only the most recent of6 resultswithin the time period is included. Magnesium 1.9 1.6 - 2.6 mg/dL [facility] Specimen Blood Performing Organization Address City/[facility]/Zipcode Phone Number [place] [phone] [place] [address] [phone] [place] Basic Metabolic Panel (08/23/2018 6:05 AM CDT)Only the most recent of11 resultswithin the time period is included. Sodium 139 136 - 145 meq/L [facility] Potassium 4.0 3.5 - 5.1 meq/L [facility] Chloride 108 (H) 98 - 107 meq/L [facility] CO2 26 22 - 29 meq/L [facility] BUN 6 (L) 7 - 21 mg/dL [facility] Creatinine 0.68 0.57 - 1.25 mg/dL [facility] Glucose 87 70 - 105 mg/dL [facility] Calcium 8.5 8.4 - 10.2 mg/dL [facility] EGFR 93Comment: ESTIMATED GFR IS mL/min/1.73 sq m [facility] NOT ACCURATE CREATININE [facility] CENTER CLEARANCE IN PREDICTING GLOMERULAR FILTRATION RATE. ESTIMATED GFR IS NOT APPLICABLE FOR DIALYSIS PATIENTS. Specimen Blood Performing Organization Address City/[facility]/Zipcode Phone Number [place] [phone] [place] [address] [place] ECG 12 lead (08/22/2018 6:33 AM CDT) Specimen Narrative Performed At Ventricular Rate 123 BPM GE MUSE Atrial Rate 123 BPM P-R Interval 120 ms QRS Duration 84 ms Q-T Interval 314 ms QTC Calculation(Bazett) 449 ms P [place] 37 degrees R [place] 67 degrees T [place] 30 degrees Sinus tachycardia Otherwise normal ECG No previous ECGs available Confirmed by Sg Moore ([id number]) on 08/23/2018 11:22:03 AM Procedure Note Interface, External Ris In - 08/23/2018 11:22 AM CDT Ventricular Rate 123 BPM Atrial Rate 123 BPM P-R Interval 120 ms QRS Duration 84 ms Q-T Interval 314 ms QTC Calculation(Bazett) 449 ms P [place] 37 degrees R [place] 67 degrees T [place] 30 degrees Sinus tachycardia Otherwise normal ECG No previous ECGs available Confirmed by Sg Moore ([id number]) on 08/23/2018 11:22:03 AM Performing Organization Address City/State/Zipcode Phone Number [employer] TRANSFUSION SERVICE REPORT - SCAN (08/21/2018 6:11 PM CDT)Only the most recent of2 resultswithin the time period is included. Narrative Performed At POC-Glucose meter (08/20/2018 11:35 AM CDT)Only the most recent of7 resultswithin the time period is included. POC-Glucose Meter 129 (H)Comment: TESTED AT 70 - 110 mg/dL [address] [address] Specimen Blood Performing Organization Address [facility] Phone Number [address] [address] CENTER Tissue Exam (08/20/2018 10:03 AM CDT)Only the most recent of2 resultswithin the time period is included. Case Report Surgical Pathology Report Case: [id number] [facility] Authorizing Provider:Jani Sanchez MDCollected: 08/20/2018 1003 [facility] Ordering Location: [facility] PERIOPERATIVE Received: 08/20/2018 1118 SERVICES Pathologist: Linda Mullen MD Specimen:Large Intestine, Colon - Right/Ascending, RIGHT COLON AND SMALL BOWEL DIAGNOSIS A. COLON, RIGHT/ASCENDING, RIGHT HEMICOLECTOMY: [facility] - CHRONIC ACTIVE ENTERITIS COMPATIBLE WITH CROHN'S DISEASE (SEE COMMENT) [facility] - NEGATIVE FOR GRANULOMAS (OR) VIRAL CYTOPATHIC CHANGES - NEGATIVE FOR DYSPLASIA (OR) MALIGNANCY - MARGINS, UNREMARKABLE Signing Pathologist Direct Phone Line: [phone] COMMENT Per Epic, patient's history of Crohn's disease s/p ileocecal anastomosis (2006) and recent admission with Crohn's flare treatment with IV steroidswith persistent symptoms is noted. [facility] Histologic features are compatible with chronic inflammatory bowel disease. Features including small bowel involvement, areas of submucosal fibrosis ( stricture), fat stranding, and transmural lymphoid a ggregate underneath non-ulcerated areas are in favor of Crohn's disease. No granulomas (or) viral cytopathic changes are seen. IDC: Dr. Leslie Carballo concurs. CPT Code(s) 48557 [facility] CLINICAL HISTORY Crohn's disease of small [facility] intestine without [facility] complication SPECIMEN SOURCE Right colon and small bowel [facility] GROSS DESCRIPTION A. Received fresh labeled "large intestine, colon-right/ ascending" is a 39 cm in length and up to 3 cm in diameter segment of unoriented bowel with a moderate amount of attached fat. The serosa is rodriguez-p [facility] ink and smooth with scattered adhesions. The segment of bowel is closed off by two linear staple lines. Opening the segment of bowel reveals a 5 cm long anastomotic site that is 9 cm from the nearest [facility] rgin (inked black). There is a 2.2 x 0.9 cm, rodriguez-pink, hyperemic, ulcerative area that is 4 cm from the anastomotic site and 13 cm from the nearest margin ( inked black). There is a 1.2 x 0.9 cm, flatten ed, hemorrhagic area that is 9.3 cm from the nearest margin (inked blue). The remaining mucosa is rodriguez-pink with normal mucosal folding and no masses or lesions identified. Yard Coordinator sections are submitted in 10 cassettes as follows. Ink code: Blue-one margin Black-margin closest to anastomotic site Section code: A1 - sales account representative sections of both margins, differentially inked per the ink code A2-A5 - entire sections of ulcerative area A6 - entire sections of hemorrhagic mucosal area A7-A10 - sales account representative sections of mucosa FR/ew MICROSCOPIC DESCRIPTION Performed. [facility] Specimen Tissue Performing Organization Address City/State/Zipcode Phone Number [facility] [address] [place] [address] [phone] CENTER ANESTHESIA SPINAL BLOCK (08/20/2018 8:20 AM CDT) Narrative Performed At Marta Parson MD 08/27/2018 12:18 PM Spinal Block Patient location during procedure: OR Start time: 08/20/2018 8:12 AM End time: 08/20/2018 8:18 AM Procedure Indication: procedure for pain, at surgeon's request and post-op pain management Staffing Anesthesiologist: Marta Parson MD Resident/PER DIEM NURSE: Abdias Worthington Preanesthetic Checklist Completed: patient identified, pre-op evaluation, timeout performed, IV checked, risks and benefits discussed, monitors and equipment checked, anesthesia consent given, prep site dry prior to draping and maximum sterile barriers were used: cap, mask, sterile gown, sterile gloves, and large sterile sheet Prep Prep: chlorhexidine gluconate and isopropyl alcohol Procedures: sterile gloves, surgical mask, surgical hat, sterile technique and prep and sterile drape applied Spinal Block Patient position: sitting Patient monitoring: EKG, HR, BP and SpO2 Approach: midline Pictures are available Level:L3-4 Injection technique: single-shot landmark technique and landmark technique Needle Needle type: pencil-tip Needle gauge: 25 G Needle Length: 9 cm Used introducer Assessment Events: cerebrospinal fluid patient tolerated the procedure well, patient had no immediate complications and patient had adequate level of anesthesia and negative Allis clamp test Additional Notes Dr. Parson present throughout procedure Procedure Note Marta Parson MD - 08/20/2018 8:20 AM CDT Spinal Block Patient location during procedure: OR Start time: 08/20/2018 8:12 AM End time: 08/20/2018 8:18 AM Procedure Indication: procedure for pain, at surgeon's request and post-op pain management Staffing Anesthesiologist: Marta Parson MD Resident/PER DIEM NURSE: Abdias Worthington Preanesthetic Checklist Completed: patient identified, pre-op evaluation, timeout performed, IV checked , risks and benefits discussed, monitors and equipment checked, anesthesia consent given, prep site dry prior to draping and maximum sterile barriers were used: cap, mask, sterile gown, sterile gloves, and large sterile sheet Prep Prep: chlorhexidine gluconate and isopropyl alcohol Procedures: sterile gloves, surgical mask, surgical hat, sterile technique and prep and sterile drape applied Spinal Block Patient position: sitting Patient monitoring: EKG, HR, BP and SpO2 Approach: midline Pictures are available Level: L3-4 Injection technique: single-shot landmark technique and landmark technique Needle Needle type: pencil-tip Needle gauge: 25 G Needle Length: 9 cm Used introducer Assessment Events: cerebrospinal fluid patient tolerated the procedure well, patient had no immediate complications and patient had adequate level of anesthesia and negative Allis clamp test Additional Notes Dr. Parson present throughout procedure Type and screen, automated (08/20/2018 6:24 AM CDT)Only the most recent of2 resultswithin the time period is included. ABO/RH AUTOMATED (BEAKER) A POSITIVE [facility] Ab Scrn NEGATIVE [facility] Specimen Blood Performing Organization Address [facility] Phone Number [address] [address] Hepatic function panel (07/23/2018 4:50 AM CDT)Only the most recent of3 resultswithin the time period is included. Protein, Total 6.3 6.0 - 8.3 gm/dL [facility] Albumin 3.9 3.5 - 5.0 g/dL [facility] Total Bilirubin 0.3 0.2 - 1.2 mg/dL [facility] Bilirubin, Direct 0.1 0.1 - 0.5 mg/dL [facility] Alkaline Phosphatase 68 40 - 150 U/L [facility] AST 23 5 - 34 U/L [facility] ALT 41 6 - 55 U/L [facility] Specimen Blood Performing Organization Address [facility] Phone Number [address] [address] CENTER C-Reactive Protein (07/22/2018 4:44 AM CDT) CRP 0.22 0.00 - 0.50 mg/dL [facility] Specimen Blood Performing Organization Address City/State/Zipcode Phone Number [facility] [address] [place] [address] CENTER CBC with platelet count + automated diff (07/22/2018 4:44 AM CDT)Only the most recent of8 resultswithin the time period is included. WBC 8.2 3.5 - 10.5 K/L [facility] RBC 4.02 3.93 - 5.22 M/L [facility] Hemoglobin 12.5 11.2 - 15.7 GM/DL [facility] Hematocrit 39.7 34.1 - 44.9 % [facility] MCV 98.8 (H) 79.4 - 94.8 fL [facility] MCH 31.1 25.6 - 32.2 pg [facility] MCHC 31.5 (L) 32.2 - 35.5 GM/DL [facility] RDW 14.8 (H) 11.7 - 14.4 % [facility] Platelets 322 150 - 450 K/CU MM [facility] MPV 8.6 (L) 9.4 - 12.3 fL [facility] nRBC 0 0 - 0 /100 WBC [facility] % Neutros 83 % [facility] % Lymphs 14 % [facility] % Monos 2 % [facility] % Eos 0 % [facility] % Baso 0 % [facility] # Neutros 6.83 (H) 1.56 - 6.13 K/L [facility] # Lymphs 1.16 (L) 1.18 - 3.74 K/L [facility] # Monos 0.16 (L) 0.24 - 0.36 K/L [facility] # Eos 0.00 (L) 0.04 - 0.36 K/L [facility] # Baso 0.01 0.01 - 0.08 K/L [facility] Immature Granulocytes-Relative 1 0 - 1 % [facility] Specimen Blood Performing Organization Address City/[facility] Phone Number [address] [address] [place] Prealbumin (07/22/2018 4:44 AM CDT) Prealbumin 36 14 - 45 mg/dL [facility] Specimen Blood Performing Organization Address City/[facility] Phone Number [address] [address] [place] STOOL PATH CHARGE (07/21/2018 1:04 PM CDT)Only the most recent of2 resultswithin the time period is included. Pathogen exam charged Done [facility] Specimen Stool Performing Organization Address City/[facility] Phone Number [address] [address] [phone] [place] Shiga Toxin Screen (07/21/2018 1:04 PM CDT)Only the most recent of2 resultswithin the time period is included. Shiga toxin 1 Not detected Not detected [facility] Shiga toxin 2 Not detected Not detected [facility] Specimen Stool Performing Organization Address [facility] Phone Number [address] [address] [place] Stool culture + Shiga toxin (07/21/2018 1:04 PM CDT)Only the most recent of2 resultswithin the time period is included. Result No Salmonella, Shigella or [facility] Campylobacter isolated [facility] Specimen Stool Performing Organization Address City/[facility]/Zipcode Phone Number [facility] [address] [place], [place] [phone] [place] Clostridium difficile [facility] Toxin (07/21/2018 1:03 PM CDT)Only the most recent of2 resultswithin the time period is included. C. Difficle Toxin Negative Negative [facility] C. Difficile [facility] Antigen NegativeComment: No Negative [facility] indication of Clostridium [facility] difficile infection and no colonization. Discontinue enteric isolation and therapy. Specimen Stool Narrative Performed At Testing performed by [employer] [facility] Assay.For GDH, published sensitivity of the assay is 98.7% compared to cytotoxicity testing.For Toxin AB, published sensitivity is 87.8% and specificity 99.4% compared to cytotoxicity testing. Verification of kit performance was done by the [facility] prior to clinical use. Performing Organization Address [facility] Phone Number [place] [phone] [place] [address] [phone] [place] [address] abdomen pelvis without contrast (07/21/2018 3:48 AM CDT) Specimen Narrative Performed At FINAL REPORT [facility] CLINICAL HISTORY: Acute abdominal pain, history of inflammatory bowel disease, concern for bowel obstruction. FINDINGS: Multiple axial images of the abdomen and pelvis were performed without intravenous contrast. Oral contrast was not given. This exam was performed according to our departmental dose-optimization program, which includes automated exposure control, adjustment of the mA and/or kV according to patient size and/or use of the iterative reconstruction technique. Comparison: 07/08/2018 Lower chest: Clear lungs. No pleural effusion or pneumothorax. Visualized cardiac contours normal. Liver: No significant findings. Gallbladder and biliary tree: Previous cholecystectomy Spleen: No significant findings. Adrenal Glands: No significant findings. Kidneys and ureters: 3 cm superior pole cyst on the left kidney 1.3 cm superior pole cyst on the right kidney. Stomach and Duodenum: No significant findings. Pancreas: No significant findings. Bowel: There is a short segment of dilated, fluid-filled small bowel in the right lower quadrant. The appearance is similar to recent CT enterography performed 07/08/2018. Adjacent narrowed small bowel loops in the right lower quadrant where previously distended with fluid; this appearance probably relates to peristaltic contraction rather than stricture. The small bowel is otherwise unremarkable without definite evidence of obstruction. There is no pneumatosis intestinalis. The patient has undergone previous ileocolectomy. The colon appears grossly unremarkable. The previously seen colonic wall thickening is no longer evident. There is stool throughout normal caliber large intestine to the junction of the sigmoid colon and rectum. There is a small amount of free fluid in the right lower quadrant, similar to previous. No free intraperitoneal air. Bladder: No significant findings. Major vascular structures: No significant findings. Reproductive organs: Previous hysterectomy Skeleton: Redemonstrated subtle vertebral body compression deformity at L2. Spinal degenerative changes are present. An intrathecal medication pump overlies the right lower quadrant. IMPRESSION: By report, IV access for IV contrast ministration was not obtained. Lack of IV contrast limits the evaluation. There is a short segment of prominent caliber small bowel in the right lower quadrant, however, this appearance is similar to previous. Relatively decompressed distal ileal loops are new from previous, and this appearance probably relates to peristaltic contraction rather than stenosis. Overall the appearance does not suggest bowel obstruction there is no CT evidence of enteritis but an acute flare should be excluded clinically. Lack of IV contrast limits evaluation of mild colitis but there is apparent interval improvement in the previously described findings of colitis. Signed: Cj Sow MD Report Verified Date/Time:07/21/2018 04:05:05 Reading Location: [address] Reading Room Procedure Note Interface, External Ris In - 07/21/2018 4:07 AM CDT FINAL REPORT CLINICAL HISTORY: Acute abdominal pain, history of inflammatory bowel disease, concern for bowel obstruction. FINDINGS: Multiple axial images of the abdomen and pelvis were performed without intravenous contrast. Oral contrast was not given. This exam was performed according to our departmental dose-optimization program, which includes automated exposure control, adjustment of the mA and/or kV according to patient size and/or use of the iterative reconstruction technique. Comparison: 07/08/2018 Lower chest: Clear lungs. No pleural effusion or pneumothorax. Visualized cardiac contours normal. Liver: No significant findings. Gallbladder and biliary tree: Previous cholecystectomy Spleen: No significant findings. Adrenal Glands: No significant findings. Kidneys and ureters: 3 cm superior pole cyst on the left kidney 1.3 cm superior pole cyst on the right kidney. Stomach and Duodenum: No significant findings. Pancreas: No significant findings. Bowel: There is a short segment of dilated, fluid-filled small bowel in the right lower quadrant. The appearance is similar to recent CT enterography performed 07/08/2018. Adjacent narrowed small bowel loops in the right lower quadrant where previously distended with fluid; this appearance probably relates to peristaltic contraction rather than stricture. The small bowel is otherwise unremarkable without definite evidence of obstruction. There is no pneumatosis intestinalis. The patient has undergone previous ileocolectomy. The colon appears grossly unremarkable. The previously seen colonic wall thickening is no longer evident. There is stool throughout normal caliber large intestine to the junction of the sigmoid colon and rectum. There is a small amount of free fluid in the right lower quadrant, similar to previous. No free intraperitoneal air. Bladder: No significant findings. Major vascular structures: No significant findings. Reproductive organs: Previous hysterectomy Skeleton: Redemonstrated subtle vertebral body compression deformity at L2. Spinal degenerative changes are present. An intrathecal medication pump overlies the right lower quadrant. IMPRESSION: By report, IV access for IV contrast ministration was not obtained. Lack of IV contrast limits the evaluation. There is a short segment of prominent caliber small bowel in the right lower quadrant, however, this appearance is similar to previous. Relatively decompressed distal ileal loops are new from previous, and this appearance probably relates to peristaltic contraction rather than stenosis. Overall the appearance does not suggest bowel obstruction there is no CT evidence of enteritis but an acute flare should be excluded clinically. Lack of IV contrast limits evaluation of mild colitis but there is apparent interval improvement in the previously described findings of colitis. Signed: Cj Sow MD Report Verified Date/Time: 07/21/2018 04:05:05 Reading Location: [address] Reading Room Performing Organization Address City/State/Zipcode Phone Number [facility] POCT , urine (07/20/2018 10:51 PM CDT) Test Urine, POC Negative Control line present?, POC Yes Background clear?, POC No=Invalid Patient Result UPT Cassette Lot #, POC [id number] UPT Cassette Expiration Date, POC 11/29/2019 Specimen Urine ABORH, manual (07/20/2018 10:48 PM CDT) ABO Grouping A [facility] Rh Factor POS [facility] Specimen Blood Performing Organization Address [facility] Phone Number [address] [address] PTT (aPTT) (07/20/2018 9:32 PM CDT) PTT 24.6 22.5 - 36.0 seconds [facility] Specimen Blood Performing Organization Address [facility] Phone Number [address] [address] CENTER PT/INR (07/20/2018 9:32 PM CDT) Protime 13.2 11.7 - 14.7 seconds [facility] INR 1.0 <=5.9 [facility] Specimen Blood Narrative Performed At RECOMMENDED COUMADIN/WARFARIN INR THERAPY [facility] RANGES STANDARD DOSE: 2.0 - 3.0 Includes: PROPHYLAXIS for venous thrombosis, systemic embolization; TREATMENT for venous thrombosis and/or pulmonary embolus. HIGH RISK: Target INR is 2.5-3.5 for patients with mechanical heart valves. Performing Organization Address [facility] Phone Number [address] [address] [phone] CENTER Lipase (07/20/2018 9:32 PM CDT) Lipase 12 8 - 78 U/L [facility] Specimen Blood Performing Organization Address [facility] Phone Number [address] [address] CENTER Comprehensive metabolic panel (07/20/2018 9:32 PM CDT) Protein, Total 5.6 (L) 6.0 - 8.3 gm/dL [facility] Albumin 3.5 3.5 - 5.0 g/dL [facility] Alkaline Phosphatase 54 40 - 150 U/L [facility] Total Bilirubin 0.2 0.2 - 1.2 mg/dL [facility] Sodium 143 136 - 145 meq/L [facility] Potassium 3.9 3.5 - 5.1 meq/L [facility] Chloride 106 98 - 107 meq/L [facility] CO2 27 22 - 29 meq/L [facility] BUN 12 7 - 21 mg/dL [facility] Creatinine 0.76 0.57 - 1.25 mg/dL [facility] Glucose 84 70 - 105 mg/dL [facility] Calcium 8.5 8.4 - 10.2 mg/dL [facility] AST 13 5 - 34 U/L [facility] ALT 27 6 - 55 U/L [facility] EGFR 82Comment: ESTIMATED GFR mL/min/1.73 sq m [facility] IS NOT ACCURATE [facility] CREATININE CLEARANCE IN PREDICTING GLOMERULAR FILTRATION RATE. ESTIMATED GFR IS NOT APPLICABLE FOR DIALYSIS PATIENTS. Specimen Blood Performing Organization Address City/State/Zipcode Phone Number [facility] [address] [place] [address] CENTER REPORT OF PROCEDURE - ENDOSCOPY URL (07/11/2018 9:45 AM CDT) Narrative Performed At CT abdomen & pelvis - enterography (07/08/2018 6:32 AM CDT) Specimen Narrative Performed At FINAL REPORT [facility] INDICATION: Abdominal pain and history of Crohn's [...] or intramesenteric abscess demonstrated. Signed: Vicente Montero MD Report Verified Date/Time:07/08/2018 14:17:31 Reading Location: [address] Consult Reading Room Procedure Note Interface, External [...] or intramesenteric abscess demonstrated. Signed: Vicente Montero MD Report Verified Date/Time: 07/08/2018 14:17:31 Reading Location: [facility] [id number] Ortho Consult Reading Room Performing Organization Address City/State/Zipcode Phone Number [facility] XR chest 1 view portable / bedside (07/06/2018 1:20 PM SENIOR UNIX ADMINISTRATOR) Specimen Narrative Performed At FINAL REPORT [facility] TECHNIQUE: Frontal chest radiograph dated 07/06/2018. CLINICAL HISTORY: Fever COMPARISON STUDY: None IMPRESSION: Lungs are clear. No pleural effusion or pneumothorax. Cardiomediastinal silhouette is normal in size. No pulmonary edema. No fracture. Signed: Xiao Mckinney MD Report Verified Date/Time:07/06/2018 14:21:04 Reading Location: [facility] Radiology Reading Room Procedure Note Interface, External Ris In - 07/06/2018 2:23 PM SENIOR UNIX ADMINISTRATOR FINAL REPORT TECHNIQUE: Frontal chest radiograph dated 07/06/2018. CLINICAL HISTORY: Fever COMPARISON STUDY: None IMPRESSION: Lungs are clear. No pleural effusion or pneumothorax. Cardiomediastinal silhouette is normal in size. No pulmonary edema. No fracture. Signed: Xiao Mckinney MD Report Verified Date/Time: 07/06/2018 14:21:04 Reading Location: [facility] Radiology Reading Room Performing Organization Address City/[facility] Phone Number RIS Blood culture (07/06/2018 11:14 AM SENIOR UNIX ADMINISTRATOR)Only the most recent of2 resultswithin the time period is included. Result No growth in 5 days [facility] Specimen Blood Performing Organization Address [facility] Phone Number [address] [address] CENTER Lactic acid, venous, whole blood (07/06/2018 11:13 AM SENIOR UNIX ADMINISTRATOR) Lactate, Venous 0.8Comment: Specimen 0.5 - 2.2 mmol/L [facility] moderately hemolyzed [facility] Specimen Blood Performing Organization Address [facility] Phone Number [address] [address] [phone] CENTER Urinalysis w/Microscopic + Reflex to Culture (07/06/2018 10:14 AM SENIOR UNIX ADMINISTRATOR) Color, UA Light Yellow [facility] Clarity, UA Clear [facility] Specific Salix, UA 1.020 1.001 - 1.035 [facility] pH, UA 6.5 5.0 - 8.0 [facility] Protein, UA Negative Negative [facility] Glucose, UA Negative Negative [facility] Ketones, UA Negative Negative [facility] Bilirubin, UA Negative Negative [facility] Blood, UA Negative Negative [facility] Nitrite, UA Negative Negative [facility] Leukocytes, UA Negative Negative [facility] Urobilinogen, UA 0.2 0.2 - 1.0 mg/dL [facility] RBC, UA <1 /HPF [facility] WBC, UA 0 /HPF [facility] Squam Epithel, UA <1 /HPF [facility] Specimen Source [facility] Specimen Urine Performing Organization Address City/State/Zipcode Phone Number [facility] [address] [place] [address] [place] Rapid drug screen, urine (07/06/2018 10:14 AM SENIOR UNIX ADMINISTRATOR) Barbiturate Screen Negative Negative [facility] Benzodiazepine Screen Positive (A) Negative [facility] Cocaine (Metab.) Screen Negative Negative [facility] Methadone Screen Negative Negative [facility] Opiate Screen Positive (A) Negative [facility] Cannabinoid Screen Negative Negative [facility] Amph/Methamph Screen Negative Negative [facility] Phencyclidine Screen Negative Negative [facility] Oxycodone Screen Negative Negative [facility] Specimen Urine Narrative Performed At [facility] CONC. Cocaine 300 ng/mL Cgjvzqfxrnj68 ng/mL Vxrmeswnvrzqxm800 ng/mL Barbiturate 200 ng/mL Jwkzxncusqaxt39 ng/mL Wzrjuf080 ng/mL Methadone 300 ng/mL Amphetamine/ 1000 ng/mL Methamphetamine Oxycodone 300 ng/mL This assay provides an unconfirmed qualitative test result for the clinical management of patients in emergency situations. Chain of custody not maintained. Some aned-xcd-selnurm medications, as well as adulterants, may cause inaccurate results. Clinical correlation should be applied. A more comprehensive drug screen or confirmation of a detected drug may be performed upon request. Performing Organization Address City/State/Zipcode Phone Number [facility] [address] [place] [address] CENTER after 10/14/2017 Insurance Payer Benefit Plan / Group Subscriber ID Type Phone Address MEDICARE MEDICARE A B xxxxxxxxxxx Medicare DIAZ MEDICAID MEDICAID DIAZ xxxxxxxxx Advance Directives For more information, please contact:[address] [phone] Code Status Date Activated Date Inactivated Comments Full Code 08/20/2018 11:25 AM 08/23/2018 11:18 AM This code status was determined by: Patient Full Code 08/20/2018 6:32 AM 08/20/2018 11:25 AM This code status was determined by: Patient Full Code 07/21/2018 8:47 AM 07/23/2018 4:43 PM This code status was determined by: Patient Full Code 07/06/2018 8:11 AM 07/11/2018 6:24 PM This code status was determined by: Patient
--- OUTSIDE RECORDS SUMMARY | 2018-10-15 14:57 | XMS REPORT ---
:1970 [facility] Address [address] [place] [address] [address] [place] [address] Care Team Providers Name Role Phone DR EDGARD CASH Unavailable Unavailable ALEJANDRO, JANI Unavailable Unavailable SANTIAGO DICKINSON Unavailable Unavailable SHAMSEE, PAPI-JOSE ALEJANDRO-AHMED Unavailable Unavailable AHBLADIMIR, BLAKE - Unavailable Unavailable OEI, RADHA Unavailable Unavailable Problems This patient has no known problems. Allergies, Adverse Reactions, Alerts This patient has no known allergies or adverse reactions. Medications This patient has no known medications. Encounters Start End Encounter Admission Attending Care Care Encounter Date/Time Date/Time Type Type Clinicians Facility Department ID 2016-11-04 Inpatient C [facility] [id number] 09:30:00 EDGARD 2016-07-15 2016-07-19 Inpatient 1 HARSHIL ALLEN [facility] [id number] 18:47:00 10:30:00 BLKAE 2013-11-19 2013-11-19 Emergency E MOOK [facility] [id number] 10:08:00 12:55:00 RADHA Results Test Description Test Time Test Comments Text Results Atomic Results Result Comments CT, ABDOMEN 2018-09-20 09:48:[address] Abdomen And Pelvis with [...] Normal in diameter PELVIS FINDINGS: Bowel: Stomach: Normal.Small and large bowel: Postoperative changes with primary ileocolic anastomosis there is beam hardening artifact at the operative site due to intrathecal pump. There is a small amount of inflammation lateral and inferior to the staple line that is new and likely related to surgery. There are no loculated fluid collections. The bowel is normal in diameter with normal wall thickness. Normal mural enhancement.Bladder: Underdistended but is normal. The uterus is [...] recommended to confirm stability. Signed: Melony Henriquez [facility] Verified Date/Time: 09/20/2018 09:48:51 , BONE 2018-09-04 13:22:00 Reason for FINAL REPORT PATIENT ID: DENSITY STUDY Exam:->crohn's [id number] Exam: Bone mineral disease of both density study. History: small and large Osteopenia. Comparison: None intestine with Discussion: Evaluation of the other complication; left hip, and lumbar spine intestinal was performed utilizing DEXA malabsorption,unspe Hologic bone densitometer. cified type, heavy The study is technically smoker,history of adequate. Left hip total bone steroid mineral density: 0.636gm/cm2, therapy,encounter T-score is -2.5, Z-score is for imaging to -2.2. Left hip femoral neck assess osteopenia bone mineral density: 0.596gm/cm2, T-score is -2.3, Z-score is -1.7. Lumbar spine total bone mineral density: 0.809gm/cm2, T-score is -2.2, Z-score is -1.6. Impression:1. Osteoporosis of the left hip, fracture risk is high2. Osteopenia of the lumbar spine, fracture risk is increased Least significant change (LSC) for bone mineral density as provided by classified ad taker is 0.023 g/cm2 for lumbar spine and 0.027 g/cm2 for total hip. 10 -year fracture risk per WHO Fracture Risk Assessment Tool (FRAX) for:Not reported because some T-scores at or below -2.5 The patient's fracture risk is compared to an age-matched control. Medical evaluation for secondary causes of low bone bone mineral density may be appropriate. Correlate clinically for the necessity and timing of the next bone mineral density study. Signed: Art Bermeo MDReport Verified Date/Time: 09/04/2018 13:22:29 PHORUS 2018-08-23 07:02:00 Test Item Value Reference Range Comments PHOSPHORUS (BEAKER) (test ojie=512) 2.9 mg/dL 2.3-4.7 [id number] 07:02:00 Test Item Value Reference Range Comments MAGNESIUM (BEAKER) (test pbcm=502) 1.9 mg/dL 1.6-2.6 BASIC METABOLIC [id number] 07:02:00 Test Item Value Reference Range Comments SODIUM (BEAKER) (test 139 meq/L 136-145 rtft=846) POTASSIUM (BEAKER) (test 4.0 meq/L 3.5-5.1 jyzh=424) CHLORIDE (BEAKER) (test 108 meq/L 98-107 vaju=109) CO2 (BEAKER) (test 26 meq/L 22-29 hpra=227) BLOOD UREA NITROGEN 6 mg/dL 7-21 (BEAKER) (test szji=151) CREATININE (BEAKER) (test 0.68 mg/dL 0.57-1.25 ujfy=489) GLUCOSE RANDOM (BEAKER) 87 mg/dL 70-105 (test iiey=778) CALCIUM (BEAKER) (test 8.5 mg/dL 8.4-10.2 sbxh=902) EGFR (BEAKER) (test 93 mL/min/1.73 sq m ESTIMATED GFR IS NOT jhxl=4444) ACCURATE CREATININE CLEARANCE IN PREDICTING GLOMERULAR FILTRATION RATE. ESTIMATED GFR IS NOT APPLICABLE FOR DIALYSIS PATIENTS. CBC (HEMOGRAM ONLY)2018-08-23 06:39:00 Test Item Value Reference Range Comments WHITE BLOOD CELL COUNT (BEAKER) (test rrys=519) 5.5 K/ L 3.5-10.5 RED BLOOD CELL COUNT (BEAKER) (test rnxl=862) 3.31 M/ L 3.93-5.22 HEMOGLOBIN (BEAKER) (test yvbx=024) 10.4 GM/DL 11.2-15.7 HEMATOCRIT (BEAKER) (test mquc=664) 34.9 % 34.1-44.9 MEAN CORPUSCULAR VOLUME (BEAKER) (test icnk=201) 105.4 fL 79.4-94.8 MEAN CORPUSCULAR HEMOGLOBIN (BEAKER) (test 31.4 pg 25.6-32.2 iswe=962) MEAN CORPUSCULAR HEMOGLOBIN CONC (BEAKER) (test 29.8 GM/DL 32.2-35.5 komd=371) RED CELL DISTRIBUTION WIDTH (BEAKER) (test 15.4 % 11.7-14.4 bvak=158) PLATELET COUNT (BEAKER) (test dbtq=566) 185 K/CU MM 150-450 MEAN PLATELET VOLUME (BEAKER) (test ebor=458) 8.9 fL 9.4-12.3 NUCLEATED RED BLOOD CELLS (BEAKER) (test 0 /100 WBC 0-0 fpls=283) TISSUE [id number] 13:47:00Surgical Pathology Report Case: [id number] Authorizing Provider: Jani Alejandro MD Collected: 08/20/2018 1003 Ordering Location: [facility] PERI[facility] Received: 08/20/2018 1118 SERVICES Pathologist: Linda Mullen MD Specimen: Large Intestine, Colon - Right/Ascending , RIGHT COLON AND SMALL BOWEL A. COLON, RIGHT/ASCENDING, RIGHT HEMICOLECTOMY: - CHRONIC ACTIVE ENTERITIS COMPATIBLE WITH CROHN'S DISEASE (SEE COMMENT) - NEGATIVE FOR GRANULOMAS (OR) VIRAL CYTOPATHIC CHANGES - NEGATIVE FOR DYSPLASIA (OR) MALIGNANCY - MARGINS, UNREMARKABLE Signing Pathologist Direct Phone Line: [phone] signed by Linda Mullen MD on 08/22/2018 at 1:47 PMPer Epic, patient's history of Crohn's disease s/p ileocecal anastomosis (2006) and recent admission with Crohn's flare treatment with IV steroidswith persistent symptoms is noted.Histologic features are compatible with chronic inflammatory boweldisease. Features including small bowel involvement, areas of submucosal fibrosis (stricture), fat stranding, and transmural lymphoid aggregate underneath non-ulcerated areas are in favor of Crohn's disease. No granulomas (or) viral cytopathic changes are seen.IDC: Dr. Leslie Carballo concurs.[id number]'s disease of small intestine without complication Right colon and small bowel A. Received fresh labeled "large intestine, colon-right/ascending" is a 39 cm in length and up to 3 cm in diameter segmentof unoriented bowel with a moderate amount of attached fat. The serosa is rodriguez-pink and smooth with scattered adhesions. The segment of bowel is closed off by two linear staple lines. Opening the segment of bowel reveals a 5 cm long anastomotic site that is 9 cm from the nearest margin (inked black). There is a 2.2 x 0.9 cm, rodriguez-pink, hyperemic, ulcerative area that is 4 cm from the anastomotic site and 13 cm from the nearest margin (inked black). There is a 1.2 x 0.9 cm, flattened, hemorrhagic area that is 9.3 cm from the nearest margin (inked blue). The remaining mucosa is rodriguez-pink with normal mucosal folding and no masses or lesions identified. Hoof Trimmer sections are submitted in 10 cassettes as follows.Ink code: Blue-one marginBlack-margin closest to anastomotic siteSection code: A1 - home furnishings sales representative sections of both margins, differentially inked per the ink code A2-A5 - entire sections of ulcerative areaA6 - entire sections of hemorrhagic mucosal areaA7-A10 - home furnishings sales representative sections of mucosaFR/ewPerformed.[id number] 06:10:00 Test Item Value Reference Range Comments PHOSPHORUS (BEAKER) (test xsdb=093) 2.3 mg/dL 2.3-4.7 [id number] 06:10:00 Test Item Value Reference Range Comments MAGNESIUM (BEAKER) (test pben=225) 1.7 mg/dL 1.6-2.6 BASIC METABOLIC [id number] 06:10:00 Test Item Value Reference Range Comments SODIUM (BEAKER) (test 137 meq/L 136-145 rkwp=616) POTASSIUM (BEAKER) (test 3.8 meq/L 3.5-5.1 iknt=854) CHLORIDE (BEAKER) (test 105 meq/L 98-107 idjx=934) CO2 (BEAKER) (test 25 meq/L 22-29 fynl=384) BLOOD UREA NITROGEN 5 mg/dL 7-21 (BEAKER) (test ayug=464) CREATININE (BEAKER) (test 0.73 mg/dL 0.57-1.25 xbcb=232) GLUCOSE RANDOM (BEAKER) 105 mg/dL 70-105 (test rtyr=499) CALCIUM (BEAKER) (test 8.6 mg/dL 8.4-10.2 ldux=816) EGFR (BEAKER) (test 86 mL/min/1.73 sq m ESTIMATED GFR IS NOT mrdt=2728) ACCURATE CREATININE CLEARANCE IN PREDICTING GLOMERULAR FILTRATION RATE. ESTIMATED GFR IS NOT APPLICABLE FOR DIALYSIS PATIENTS. CBC (HEMOGRAM ONLY)2018-08-22 05:31:00 Test Item Value Reference Range Comments WHITE BLOOD CELL COUNT (BEAKER) (test wlno=856) 7.8 K/ L 3.5-10.5 RED BLOOD CELL COUNT (BEAKER) (test oahl=674) 3.65 M/ L 3.93-5.22 HEMOGLOBIN (BEAKER) (test fyoz=444) 11.5 GM/DL 11.2-15.7 HEMATOCRIT (BEAKER) (test yvej=034) 37.1 % 34.1-44.9 MEAN CORPUSCULAR VOLUME (BEAKER) (test dwvx=245) 101.6 fL 79.4-94.8 MEAN CORPUSCULAR HEMOGLOBIN (BEAKER) (test 31.5 pg 25.6-32.2 wwfu=778) MEAN CORPUSCULAR HEMOGLOBIN CONC (BEAKER) (test 31.0 GM/DL 32.2-35.5 syks=114) RED CELL DISTRIBUTION WIDTH (BEAKER) (test 15.2 % 11.7-14.4 zqhj=914) PLATELET COUNT (BEAKER) (test dhsv=988) 215 K/CU MM 150-450 MEAN PLATELET VOLUME (BEAKER) (test rodl=936) 8.8 fL 9.4-12.3 NUCLEATED RED BLOOD CELLS (BEAKER) (test 0 /100 WBC 0-0 yjgb=352) [id number] 03:34:00 Test Item Value Reference Range Comments PHOSPHORUS (BEAKER) (test seqa=537) 2.5 mg/dL 2.3-4.7 [id number] 03:34:00 Test Item Value Reference Range Comments MAGNESIUM (BEAKER) (test eqnz=967) 1.9 mg/dL 1.6-2.6 BASIC METABOLIC [id number] 03:34:00 Test Item Value Reference Range Comments SODIUM (BEAKER) (test 138 meq/L 136-145 lwdi=964) POTASSIUM (BEAKER) (test 3.9 meq/L 3.5-5.1 lryq=179) CHLORIDE (BEAKER) (test 108 meq/L 98-107 bddg=323) CO2 (BEAKER) (test 25 meq/L 22-29 mubm=131) BLOOD UREA NITROGEN 5 mg/dL 7-21 (BEAKER) (test hfza=410) CREATININE (BEAKER) (test 0.67 mg/dL 0.57-1.25 ggfc=298) GLUCOSE RANDOM (BEAKER) 122 mg/dL 70-105 (test sfhp=450) CALCIUM (BEAKER) (test 8.4 mg/dL 8.4-10.2 olgj=017) EGFR (BEAKER) (test 95 mL/min/1.73 sq m ESTIMATED GFR IS NOT sxku=8181) ACCURATE CREATININE CLEARANCE IN PREDICTING GLOMERULAR FILTRATION RATE. ESTIMATED GFR IS NOT APPLICABLE FOR DIALYSIS PATIENTS. CBC (HEMOGRAM ONLY)2018-08-21 03:17:00 Test Item Value Reference Range Comments WHITE BLOOD CELL COUNT (BEAKER) (test vxcj=682) 7.8 K/ L 3.5-10.5 RED BLOOD CELL COUNT (BEAKER) (test rser=821) 3.65 M/ L 3.93-5.22 HEMOGLOBIN (BEAKER) (test mdga=757) 11.4 GM/DL 11.2-15.7 HEMATOCRIT (BEAKER) (test baxe=345) 36.3 % 34.1-44.9 MEAN CORPUSCULAR VOLUME (BEAKER) (test vzke=329) 99.5 fL 79.4-94.8 MEAN CORPUSCULAR HEMOGLOBIN (BEAKER) (test 31.2 pg 25.6-32.2 tqow=495) MEAN CORPUSCULAR HEMOGLOBIN CONC (BEAKER) (test 31.4 GM/DL 32.2-35.5 rhbl=395) RED CELL DISTRIBUTION WIDTH (BEAKER) (test 14.9 % 11.7-14.4 ffjx=287) PLATELET COUNT (BEAKER) (test upni=871) 204 K/CU MM 150-450 MEAN PLATELET VOLUME (BEAKER) (test lueu=660) 8.5 fL 9.4-12.3 NUCLEATED RED BLOOD CELLS (BEAKER) (test 0 /100 WBC 0-0 qive=353) POCT-GLUCOSE [id number] 11:42:00 Test Item Value Reference Range Comments POC-GLUCOSE METER (BEAKER) 129 mg/dL 70-110 TESTED AT [facility] [address] [facility] (test qkkb=7927) [facility] [address] POCT-GLUCOSE [id number] 06:28:00 Test Item Value Reference Range Comments POC-GLUCOSE METER (BEAKER) 102 mg/dL 70-110 TESTED AT [facility] [address] [facility] (test rkvf=2761) [facility] [address] CT, [id number] 15:41:00FINAL REPORT CT abdomen and pelvis with contrast History: Crohn's disease Comparison: 07/21/2018 Technique: serial axial imaging was performed following up to 100cc of non ionic iodinated intravenous contrast as per departmental protocol. Multiplanar images are reconstructed andreviewed when indicated. This CT examination is performed using one or more of the following dose reduction techniques: Automated exposure control, adjustment of the mA and /or kV according to patient size, and/or use of iterative reconstruction technique. Findings: Unremarkable appearance of pancreas and spleen. Unremarkable appearance of the liver. Previous cholecystectomy. Simple appearing cysts are noted within both kidneys, largest measuring 3.5 cm in size. Otherwise, Unremarkable appearance of adrenal glands, kidneys, ureters, and urinary bladder. Prior hysterectomy. No small or large bowel obstruction. No apparent bowel wall thickening. No hyperenhancement of the bowel is seen to definitively suggest acute inflammatory change. No free air, sinus tract, fistula, or fluid collection is seen. Postsurgical changes are again seen within the right lower quadrant. No free fluid or lymphadenopathy. No abdominal aortic aneurysm. No aggressive osseous lesion. Epidural pain pump terminates within the lower thoracic spine. Impression: 1. No definite findings of active inflammatory bowel disease on this examination.2. Previous cholecystectomy and hysterectomy. Signed: Dinesh Topete MDReport Verified Date/Time: 08/17/2018 15:41:17 Reading Location: [facility] Diagnostic Imaging Reading Room - [place] [address] STOOL CULTURE + SHIGA [id number] 15:37:00 Test Item Value Reference Range Comments CULTURE (BEAKER) (test No Salmonella, Shigella or uxuv=4845) Campylobacter isolated POCT-GLUCOSE [id number] 08:25:00 Test Item Value Reference Range Comments POC-GLUCOSE METER (BEAKER) 197 mg/dL 70-110 TESTED AT [facility] [address] [facility] (test nmvx=5040) [facility] [address] [id number] 05:59:00 Test Item Value Reference Range Comments PHOSPHORUS (BEAKER) (test aryx=752) 3.6 mg/dL 2.3-4.7 [id number] 05:59:00 Test Item Value Reference Range Comments MAGNESIUM (BEAKER) (test dmkc=449) 2.3 mg/dL 1.6-2.6 BASIC METABOLIC [id number] 05:59:00 Test Item Value Reference Range Comments SODIUM (BEAKER) (test 137 meq/L 136-145 fizk=770) POTASSIUM (BEAKER) (test 4.7 meq/L 3.5-5.1 lvky=700) CHLORIDE (BEAKER) (test 104 meq/L 98-107 bdmo=842) CO2 (BEAKER) (test 24 meq/L 22-29 oxby=471) BLOOD UREA NITROGEN 4 mg/dL 7-21 (BEAKER) (test uhqv=443) CREATININE (BEAKER) (test 0.74 mg/dL 0.57-1.25 ycuo=335) GLUCOSE RANDOM (BEAKER) 144 mg/dL 70-105 (test omyd=416) CALCIUM (BEAKER) (test 9.0 mg/dL 8.4-10.2 qapd=500) EGFR (BEAKER) (test 84 mL/min/1.73 sq m ESTIMATED GFR IS NOT mqaf=6601) ACCURATE CREATININE CLEARANCE IN PREDICTING GLOMERULAR FILTRATION RATE. ESTIMATED GFR IS NOT APPLICABLE FOR DIALYSIS PATIENTS. HEPATIC FUNCTION [id number] 05:59:00 Test Item Value Reference Range Comments TOTAL PROTEIN (BEAKER) (test gpjk=924) 6.3 gm/dL 6.0-8.3 ALBUMIN (BEAKER) (test rdwf=5499) 3.9 g/dL 3.5-5.0 BILIRUBIN TOTAL (BEAKER) (test cygw=905) 0.3 mg/dL 0.2-1.2 BILIRUBIN DIRECT (BEAKER) (test ckwu=052) 0.1 mg/dL 0.1-0.5 ALKALINE PHOSPHATASE (BEAKER) (test sbkl=863) 68 U/L 40-150 AST (SGOT) (BEAKER) (test rmxn=268) 23 U/L 5-34 ALT (SGPT) (BEAKER) (test auqd=350) 41 U/L 6-55 POCT-GLUCOSE [id number] 21:05:00 Test Item Value Reference Range Comments POC-GLUCOSE METER (BEAKER) 148 mg/dL 70-110 TESTED AT [facility] [address] [facility] (test ftus=4420) [facility] [address] C. DIFFICILE GDH [id number] 15:59:00 Test Item Value Reference Range Comments CDT TOXIN (test Negative Negative oqfr=[id number]) CDT GDH ANTIGEN (test Negative Negative No indication of Clostridium orro=[id number]) difficile infection and no colonization. Discontinue enteric isolation and therapy. Testing performed by ? Rapid Cassette Assay. For GDH, published sensitivity of the assay is 98.7% compared to cytotoxicity testing. For Toxin AB, published sensitivity is 87.8% and specificity 99.4% compared to cytotoxicity testing.Verification of kit performance was done by the [facility] Microbiology Lab prior to clinical use.SHIGA TOXIN [id number] 14:22:00 Test Item Value Reference Range Comments SHIGA TOXIN 1 (BEAKER) (test tvcb=1418) Not detected Not detected SHIGA TOXIN 2 (BEAKER) (test enao=4179) Not detected Not detected POCT-GLUCOSE [id number] 13:13:00 Test Item Value Reference Range Comments POC-GLUCOSE METER (BEAKER) 119 mg/dL 70-110 TESTED AT [address] (test slwc=0837) [facility] [address] STOOL PATH [id number] 10:03:00 Test Item Value Reference Range Comments PATHOGEN EXAM CHARGED (BEAKER) (test rsth=7512) Done POCT-GLUCOSE [id number] 09:13:00 Test Item Value Reference Range Comments POC-GLUCOSE METER (BEAKER) 111 mg/dL 70-110 TESTED AT [address] (test pfsx=2021) [facility] [address] [id number] 06:09:00 Test Item Value Reference Range Comments PREALBUMIN (BEAKER) (test sims=629) 36 mg/dL 14-45 CBC W/PLT COUNT & AUTO [id number] 06:02:00 Test Item Value Reference Range Comments WHITE BLOOD CELL COUNT (BEAKER) (test cfsc=355) 8.2 K/ L 3.5-10.5 RED BLOOD CELL COUNT (BEAKER) (test swxz=872) 4.02 M/ L 3.93-5.22 HEMOGLOBIN (BEAKER) (test feau=489) 12.5 GM/DL 11.2-15.7 HEMATOCRIT (BEAKER) (test koyr=939) 39.7 % 34.1-44.9 MEAN CORPUSCULAR VOLUME (BEAKER) (test zako=780) 98.8 fL 79.4-94.8 MEAN CORPUSCULAR HEMOGLOBIN (BEAKER) (test 31.1 pg 25.6-32.2 rhdv=071) MEAN CORPUSCULAR HEMOGLOBIN CONC (BEAKER) (test 31.5 GM/DL 32.2-35.5 trkg=320) RED CELL DISTRIBUTION WIDTH (BEAKER) (test 14.8 % 11.7-14.4 wibt=244) PLATELET COUNT (BEAKER) (test bcgl=168) 322 K/CU MM 150-450 MEAN PLATELET VOLUME (BEAKER) (test fuvb=382) 8.6 fL 9.4-12.3 NUCLEATED RED BLOOD CELLS (BEAKER) (test 0 /100 WBC 0-0 mkbj=907) NEUTROPHILS RELATIVE PERCENT (BEAKER) (test 83 % zsoy=872) LYMPHOCYTES RELATIVE PERCENT (BEAKER) (test 14 % gvsb=024) MONOCYTES RELATIVE PERCENT (BEAKER) (test 2 % olgq=706) EOSINOPHILS RELATIVE PERCENT (BEAKER) (test 0 % krqk=246) BASOPHILS RELATIVE PERCENT (BEAKER) (test 0 % dioj=368) NEUTROPHILS ABSOLUTE COUNT (BEAKER) (test 6.83 K/ L 1.56-6.13 ksra=214) LYMPHOCYTES ABSOLUTE COUNT (BEAKER) (test 1.16 K/ L 1.18-3.74 zlbq=544) MONOCYTES ABSOLUTE COUNT (BEAKER) (test 0.16 K/ L 0.24-0.36 cuzr=677) EOSINOPHILS ABSOLUTE COUNT (BEAKER) (test 0.00 K/ L 0.04-0.36 nhxt=535) BASOPHILS ABSOLUTE COUNT (BEAKER) (test 0.01 K/ L 0.01-0.08 bkfb=778) IMMATURE GRANULOCYTES-RELATIVE PERCENT (BEAKER) 1 % 0-1 (test frmb=7699) [id number] 05:52:00 Test Item Value Reference Range Comments PHOSPHORUS (BEAKER) (test lhat=674) 4.0 mg/dL 2.3-4.7 [id number] 05:52:00 Test Item Value Reference Range Comments MAGNESIUM (BEAKER) (test husu=451) 2.3 mg/dL 1.6-2.6 BASIC METABOLIC [id number] 05:52:00 Test Item Value Reference Range Comments SODIUM (BEAKER) (test 139 meq/L 136-145 xyvq=621) POTASSIUM (BEAKER) (test 4.4 meq/L 3.5-5.1 ytot=001) CHLORIDE (BEAKER) (test 104 meq/L 98-107 prom=624) CO2 (BEAKER) (test 25 meq/L 22-29 admj=454) BLOOD UREA NITROGEN 5 mg/dL 7-21 (BEAKER) (test osbn=207) CREATININE (BEAKER) (test 0.78 mg/dL 0.57-1.25 nidc=707) GLUCOSE RANDOM (BEAKER) 172 mg/dL 70-105 (test void=384) CALCIUM (BEAKER) (test 9.0 mg/dL 8.4-10.2 qxyp=433) EGFR (BEAKER) (test 80 mL/min/1.73 sq m ESTIMATED GFR IS NOT mqry=9463) ACCURATE CREATININE CLEARANCE IN PREDICTING GLOMERULAR FILTRATION RATE. ESTIMATED GFR IS NOT APPLICABLE FOR DIALYSIS PATIENTS. HEPATIC FUNCTION [id number] 05:52:00 Test Item Value Reference Range Comments TOTAL PROTEIN (BEAKER) (test wpzp=433) 6.4 gm/dL 6.0-8.3 ALBUMIN (BEAKER) (test sbgr=9750) 3.9 g/dL 3.5-5.0 BILIRUBIN TOTAL (BEAKER) (test oqdh=364) 0.2 mg/dL 0.2-1.2 BILIRUBIN DIRECT (BEAKER) (test ftyo=919) 0.1 mg/dL 0.1-0.5 ALKALINE PHOSPHATASE (BEAKER) (test yluz=802) 68 U/L 40-150 AST (SGOT) (BEAKER) (test hldf=473) 12 U/L 5-34 ALT (SGPT) (BEAKER) (test twjc=851) 29 U/L 6-55 C-REACTIVE [id number] 05:52:00 Test Item Value Reference Range Comments C-REACTIVE PROTEIN (BEAKER) (test vhkq=317) 0.22 mg/dL 0.00-0.50 POCT-GLUCOSE [id number] 23:39:00 Test Item Value Reference Range Comments POC-GLUCOSE METER (BEAKER) 122 mg/dL 70-110 TESTED AT [address] (test ereq=6616) [facility] [address] [address], [id number] 04:05:00FINAL REPORT CLINICAL HISTORY: Acute abdominal pain, history of inflammatorybowel disease, concern for bowel obstruction. FINDINGS: Multiple axial images of the abdomen and pelvis were performed without intravenous contrast. Oral contrast was not given. This exam was performedaccording to our departmental dose-optimization program, which includes automated exposure control, adjustment of the mA and/or kV according to patient size and/or use of the iterative reconstruction technique. Comparison: 07/08/2018 Lower chest: Clear lungs. No pleural effusion or pneumothorax. Visualized cardiac contours normal. Liver: No significant findings. Gallbladder and biliary tree: Previous cholecystectomy Spleen: No significant findings. Adrenal Glands: No significant findings. Kidneys andureters: 3 cm superior pole cyst on the [...] small bowel is otherwise unremarkable without definite evidenceof obstruction. There is no pneumatosis intestinalis. The [...] Reproductive organs: Previous hysterectomy Skeleton: Redemonstrated subtle vertebralbody compression deformity at L2. Spinal degenerative changes are present. An intrathecal medicationpump overlies the right lower quadrant. IMPRESSION: By [...] described findings of colitis. Signed: Cj Sow MDReport Verified Date/Time: 07/21/2018 04:05:05 Reading Location: [address] Reading Room [id number] 22:00:00 Test Item Value Reference Range Comments LIPASE (BEAKER) (test uzfd=124) 12 U/L 8-78 COMPREHENSIVE METABOLIC [id number] 22:00:00 Test Item Value Reference Range Comments TOTAL PROTEIN (BEAKER) 5.6 gm/dL 6.0-8.3 (test lnok=374) ALBUMIN (BEAKER) (test 3.5 g/dL 3.5-5.0 dtmb=5133) ALKALINE PHOSPHATASE 54 U/L 40-150 (BEAKER) (test hrlc=460) BILIRUBIN TOTAL (BEAKER) 0.2 mg/dL 0.2-1.2 (test aoie=113) SODIUM (BEAKER) (test 143 meq/L 136-145 bdnf=688) POTASSIUM (BEAKER) (test 3.9 meq/L 3.5-5.1 mvbi=751) CHLORIDE (BEAKER) (test 106 meq/L 98-107 kyiu=204) CO2 (BEAKER) (test 27 meq/L 22-29 tdpj=117) BLOOD UREA NITROGEN 12 mg/dL 7-21 (BEAKER) (test bsia=518) CREATININE (BEAKER) (test 0.76 mg/dL 0.57-1.25 dqbc=606) GLUCOSE RANDOM (BEAKER) 84 mg/dL 70-105 (test slbf=699) CALCIUM (BEAKER) (test 8.5 mg/dL 8.4-10.2 eqlw=418) AST (SGOT) (BEAKER) (test 13 U/L 5-34 pidb=904) ALT (SGPT) (BEAKER) (test 27 U/L 6-55 suqb=830) EGFR (BEAKER) (test 82 mL/min/1.73 sq m ESTIMATED GFR IS NOT kzik=8278) ACCURATE CREATININE CLEARANCE IN PREDICTING GLOMERULAR FILTRATION RATE. ESTIMATED GFR IS NOT APPLICABLE FOR DIALYSIS PATIENTS. [id number] 21:55:00 Test Item Value Reference Range Comments PARTIAL THROMBOPLASTIN TIME (BEAKER) (test 24.6 seconds 22.5-36.0 liio=841) PROTHROMBIN TIME/[id number] 21:53:00 Test Item Value Reference Range Comments PROTIME (BEAKER) (test lqql=438) 13.2 seconds 11.7-14.7 INR (BEAKER) (test ckpq=054) 1.0 <=5.9 RECOMMENDED COUMADIN/WARFARIN INR THERAPY RANGESSTANDARD DOSE: 2.0 - 3.0 Includes: PROPHYLAXIS forvenous thrombosis, systemic embolization; TREATMENT for venous thrombosis and/or pulmonary embolus.HIGH RISK: Target INR is 2.5-3.5 for patients with mechanical heart valves.CBC W/PLT COUNT & AUTO [id number] 21:44:00 Test Item Value Reference Range Comments WHITE BLOOD CELL COUNT (BEAKER) (test ijwy=959) 10.8 K/ L 3.5-10.5 RED BLOOD CELL COUNT (BEAKER) (test eawd=018) 3.58 M/ L 3.93-5.22 HEMOGLOBIN (BEAKER) (test ceze=107) 11.1 GM/DL 11.2-15.7 HEMATOCRIT (BEAKER) (test gcgp=245) 35.1 % 34.1-44.9 MEAN CORPUSCULAR VOLUME (BEAKER) (test pbvq=317) 98.0 fL 79.4-94.8 MEAN CORPUSCULAR HEMOGLOBIN (BEAKER) (test 31.0 pg 25.6-32.2 auyc=813) MEAN CORPUSCULAR HEMOGLOBIN CONC (BEAKER) (test 31.6 GM/DL 32.2-35.5 eygw=716) RED CELL DISTRIBUTION WIDTH (BEAKER) (test 15.1 % 11.7-14.4 izxk=066) PLATELET COUNT (BEAKER) (test xnzs=751) 245 K/CU MM 150-450 MEAN PLATELET VOLUME (BEAKER) (test loaj=022) 8.6 fL 9.4-12.3 NUCLEATED RED BLOOD CELLS (BEAKER) (test 0 /100 WBC 0-0 aacn=778) NEUTROPHILS RELATIVE PERCENT (BEAKER) (test 73 % yjxm=781) LYMPHOCYTES RELATIVE PERCENT (BEAKER) (test 20 % hebi=931) MONOCYTES RELATIVE PERCENT (BEAKER) (test 6 % ynii=689) EOSINOPHILS RELATIVE PERCENT (BEAKER) (test 0 % icyy=865) BASOPHILS RELATIVE PERCENT (BEAKER) (test 0 % zdfz=623) NEUTROPHILS ABSOLUTE COUNT (BEAKER) (test 7.89 K/ L 1.56-6.13 onyd=975) LYMPHOCYTES ABSOLUTE COUNT (BEAKER) (test 2.13 K/ L 1.18-3.74 ffgx=740) MONOCYTES ABSOLUTE COUNT (BEAKER) (test 0.65 K/ L 0.24-0.36 viyq=272) EOSINOPHILS ABSOLUTE COUNT (BEAKER) (test 0.01 K/ L 0.04-0.36 ikse=982) BASOPHILS ABSOLUTE COUNT (BEAKER) (test 0.01 K/ L 0.01-0.08 pxzc=351) IMMATURE GRANULOCYTES-RELATIVE PERCENT (BEAKER) 1 % 0-1 (test qjdr=6021) TISSUE [id number] 09:23:00Surgical Pathology Report Case: [id number] Authorizing Provider: King Huynh MD Collected: 07/11/2018 0924 Ordering Location: [address] Received: 07/11/2018 1421 Service Pathologist: Linda Mullen MD Specimens: A) - Large Intestine, Colon - Right/ Ascending, random biopsies B) -Large Intestine, Colon - Transverse, random biopsies C) - Large Intestine, Colon - Left/Descending, random biopsies D) - LargeIntestine, Colon - Sigmoid, random biopsies A. COLON, RIGHT/ASCENDING,RANDOM, BIOPSY : - COLONIC MUCOSA WITH NO SIGNIFICANT DIAGNOSTIC [...] AND COMMENT) Signing Pathologist Direct Phone Line: [phone] signed by Linda Mullen MD on 07/12/2018 at 9:23 AMPatient's history of Crohn's disease is noted per Epic note dated 07/10/18. The current sampling shows no significant active or chronic colitis. This may represent complete histologic resolution following treatment. Clinical and endoscopic correlation is recommended.[id number] abdominal pain A. Random colon biopsy. B. [...] "random transverse colon biopsy" consists of multiple fragmentsof rodriguez tissue ranging from less than 0.1 to 0.3 cm, submitted entirely in B1.Specimen C: Labeled "random left descending colon biopsy" consists of two fragments of rodriguez tissue measuring 0.4 and 0.6 cm, submitted entirely in C1.Specimen D: Labeled "random sigmoid biopsy" consists of three fragments of rodriguez tissue ranging from 0.1 to 0.3 cm, submitted entirely in D1. CG /ew A-D. Section shows pieces of unremarkable colonic [...] are noted. No dysplasia or carcinoma is present.BLOOD [id number] 20:01:00 Test Item Value Reference Range Comments CULTURE (BEAKER) (test qylb=5901) No growth in 5 days BLOOD [id number] 20:01:00 Test Item Value Reference Range Comments CULTURE (BEAKER) (test qmhg=9028) No growth in 5 days BASIC METABOLIC [id number] 04:55:00 Test Item Value Reference Range Comments SODIUM (BEAKER) (test 145 meq/L 136-145 snaa=624) POTASSIUM (BEAKER) (test 4.0 meq/L 3.5-5.1 aief=768) CHLORIDE (BEAKER) (test 111 meq/L 98-107 rqgq=221) CO2 (BEAKER) (test 27 meq/L 22-29 bwbg=089) BLOOD UREA NITROGEN 2 mg/dL 7-21 (BEAKER) (test bvro=716) CREATININE (BEAKER) (test 0.68 mg/dL 0.57-1.25 fsua=846) GLUCOSE RANDOM (BEAKER) 100 mg/dL 70-105 (test ldys=317) CALCIUM (BEAKER) (test 9.0 mg/dL 8.4-10.2 zfjm=545) EGFR (BEAKER) (test 93 mL/min/1.73 sq m ESTIMATED GFR IS NOT gizf=8631) ACCURATE CREATININE CLEARANCE IN PREDICTING GLOMERULAR FILTRATION RATE. ESTIMATED GFR IS NOT APPLICABLE FOR DIALYSIS PATIENTS. CBC W/PLT COUNT & AUTO [id number] 04:37:00 Test Item Value Reference Range Comments WHITE BLOOD CELL COUNT (BEAKER) (test jedb=380) 6.3 K/ L 3.5-10.5 RED BLOOD CELL COUNT (BEAKER) (test iihz=281) 3.92 M/ L 3.93-5.22 HEMOGLOBIN (BEAKER) (test iyxz=748) 12.0 GM/DL 11.2-15.7 HEMATOCRIT (BEAKER) (test mopd=266) 38.3 % 34.1-44.9 MEAN CORPUSCULAR VOLUME (BEAKER) (test qlqx=184) 97.7 fL 79.4-94.8 MEAN CORPUSCULAR HEMOGLOBIN (BEAKER) (test 30.6 pg 25.6-32.2 dwlp=412) MEAN CORPUSCULAR HEMOGLOBIN CONC (BEAKER) (test 31.3 GM/DL 32.2-35.5 mlqa=707) RED CELL DISTRIBUTION WIDTH (BEAKER) (test 13.5 % 11.7-14.4 ezpn=697) PLATELET COUNT (BEAKER) (test lpky=907) 220 K/CU MM 150-450 MEAN PLATELET VOLUME (BEAKER) (test kvhm=628) 9.6 fL 9.4-12.3 NUCLEATED RED BLOOD CELLS (BEAKER) (test 0 /100 WBC 0-0 xflb=570) NEUTROPHILS RELATIVE PERCENT (BEAKER) (test 76 % ivbs=550) LYMPHOCYTES RELATIVE PERCENT (BEAKER) (test 20 % olle=955) MONOCYTES RELATIVE PERCENT (BEAKER) (test 3 % rrjx=485) EOSINOPHILS RELATIVE PERCENT (BEAKER) (test 0 % mcqa=732) BASOPHILS RELATIVE PERCENT (BEAKER) (test 0 % corq=910) NEUTROPHILS ABSOLUTE COUNT (BEAKER) (test 4.80 K/ L 1.56-6.13 agle=912) LYMPHOCYTES ABSOLUTE COUNT (BEAKER) (test 1.26 K/ L 1.18-3.74 qrjd=068) MONOCYTES ABSOLUTE COUNT (BEAKER) (test 0.20 K/ L 0.24-0.36 mhzp=025) EOSINOPHILS ABSOLUTE COUNT (BEAKER) (test 0.00 K/ L 0.04-0.36 grle=308) BASOPHILS ABSOLUTE COUNT (BEAKER) (test 0.01 K/ L 0.01-0.08 phxj=561) IMMATURE GRANULOCYTES-RELATIVE PERCENT (BEAKER) 1 % 0-1 (test hqzr=5760) BASIC METABOLIC [id number] 06:15:00 Test Item Value Reference Range Comments SODIUM (BEAKER) (test 144 meq/L 136-145 bnzr=700) POTASSIUM (BEAKER) (test 4.3 meq/L 3.5-5.1 Specimen slightly dgjs=911) hemolyzed CHLORIDE (BEAKER) (test 113 meq/L 98-107 qbme=366) CO2 (BEAKER) (test 24 meq/L 22-29 naol=470) BLOOD UREA NITROGEN 3 mg/dL 7-21 (BEAKER) (test acby=783) CREATININE (BEAKER) (test 0.72 mg/dL 0.57-1.25 Specimen slightly utph=266) hemolyzed GLUCOSE RANDOM (BEAKER) 138 mg/dL 70-105 (test dywz=923) CALCIUM (BEAKER) (test 9.3 mg/dL 8.4-10.2 gtuj=066) EGFR (BEAKER) (test 87 mL/min/1.73 sq m ESTIMATED GFR IS NOT agwe=3413) ACCURATE CREATININE CLEARANCE IN PREDICTING GLOMERULAR FILTRATION RATE. ESTIMATED GFR IS NOT APPLICABLE FOR DIALYSIS PATIENTS. CBC W/PLT COUNT & AUTO [id number] 06:06:00 Test Item Value Reference Range Comments WHITE BLOOD CELL COUNT (BEAKER) (test iwli=639) 7.5 K/ L 3.5-10.5 RED BLOOD CELL COUNT (BEAKER) (test cdyp=624) 4.07 M/ L 3.93-5.22 HEMOGLOBIN (BEAKER) (test tujz=529) 12.9 GM/DL 11.2-15.7 HEMATOCRIT (BEAKER) (test psox=399) 40.3 % 34.1-44.9 MEAN CORPUSCULAR VOLUME (BEAKER) (test eumk=878) 99.0 fL 79.4-94.8 MEAN CORPUSCULAR HEMOGLOBIN (BEAKER) (test 31.7 pg 25.6-32.2 jxko=859) MEAN CORPUSCULAR HEMOGLOBIN CONC (BEAKER) (test 32.0 GM/DL 32.2-35.5 nbwa=889) RED CELL DISTRIBUTION WIDTH (BEAKER) (test 13.3 % 11.7-14.4 efls=734) PLATELET COUNT (BEAKER) (test lqhm=971) 191 K/CU MM 150-450 MEAN PLATELET VOLUME (BEAKER) (test ewsr=346) 9.9 fL 9.4-12.3 NUCLEATED RED BLOOD CELLS (BEAKER) (test 0 /100 WBC 0-0 opvx=041) NEUTROPHILS RELATIVE PERCENT (BEAKER) (test 70 % rjmq=682) LYMPHOCYTES RELATIVE PERCENT (BEAKER) (test 24 % raig=347) MONOCYTES RELATIVE PERCENT (BEAKER) (test 5 % oiyy=130) EOSINOPHILS RELATIVE PERCENT (BEAKER) (test 0 % rprd=326) BASOPHILS RELATIVE PERCENT (BEAKER) (test 0 % lxjv=035) NEUTROPHILS ABSOLUTE COUNT (BEAKER) (test 5.25 K/ L 1.56-6.13 dylu=132) LYMPHOCYTES ABSOLUTE COUNT (BEAKER) (test 1.83 K/ L 1.18-3.74 inwd=154) MONOCYTES ABSOLUTE COUNT (BEAKER) (test 0.37 K/ L 0.24-0.36 mtlg=329) EOSINOPHILS ABSOLUTE COUNT (BEAKER) (test 0.02 K/ L 0.04-0.36 nsbn=895) BASOPHILS ABSOLUTE COUNT (BEAKER) (test 0.01 K/ L 0.01-0.08 izac=955) IMMATURE GRANULOCYTES-RELATIVE PERCENT (BEAKER) 0 % 0-1 (test utvz=7061) STOOL CULTURE + SHIGA [id number] 12:15:00 Test Item Value Reference Range Comments CULTURE (BEAKER) (test No Salmonella, Shigella or codc=3968) Campylobacter isolated BASIC METABOLIC [id number] 07:08:00 Test Item Value Reference Range Comments SODIUM (BEAKER) (test 143 meq/L 136-145 hhqx=263) POTASSIUM (BEAKER) (test 4.2 meq/L 3.5-5.1 clkw=409) CHLORIDE (BEAKER) (test 111 meq/L 98-107 yduo=861) CO2 (BEAKER) (test 25 meq/L 22-29 pkbg=842) BLOOD UREA NITROGEN 3 mg/dL 7-21 (BEAKER) (test uigq=513) CREATININE (BEAKER) (test 0.67 mg/dL 0.57-1.25 ikaj=690) GLUCOSE RANDOM (BEAKER) 106 mg/dL 70-105 (test wyjk=691) CALCIUM (BEAKER) (test 9.2 mg/dL 8.4-10.2 cefv=251) EGFR (BEAKER) (test 95 mL/min/1.73 sq m ESTIMATED GFR IS NOT diey=8344) ACCURATE CREATININE CLEARANCE IN PREDICTING GLOMERULAR FILTRATION RATE. ESTIMATED GFR IS NOT APPLICABLE FOR DIALYSIS PATIENTS. CBC W/PLT COUNT & AUTO [id number] 06:42:00 Test Item Value Reference Range Comments WHITE BLOOD CELL COUNT (BEAKER) (test kvjy=299) 6.2 K/ L 3.5-10.5 RED BLOOD CELL COUNT (BEAKER) (test qrgu=054) 4.29 M/ L 3.93-5.22 HEMOGLOBIN (BEAKER) (test mqda=057) 13.4 GM/DL 11.2-15.7 HEMATOCRIT (BEAKER) (test vgug=901) 41.1 % 34.1-44.9 MEAN CORPUSCULAR VOLUME (BEAKER) (test usoq=736) 95.8 fL 79.4-94.8 MEAN CORPUSCULAR HEMOGLOBIN (BEAKER) (test 31.2 pg 25.6-32.2 erdu=645) MEAN CORPUSCULAR HEMOGLOBIN CONC (BEAKER) (test 32.6 GM/DL 32.2-35.5 ikse=053) RED CELL DISTRIBUTION WIDTH (BEAKER) (test 13.1 % 11.7-14.4 ikan=093) PLATELET COUNT (BEAKER) (test wenh=735) 232 K/CU MM 150-450 MEAN PLATELET VOLUME (BEAKER) (test kvts=687) 9.0 fL 9.4-12.3 NUCLEATED RED BLOOD CELLS (BEAKER) (test 0 /100 WBC 0-0 sqoh=128) NEUTROPHILS RELATIVE PERCENT (BEAKER) (test 67 % cdfa=511) LYMPHOCYTES RELATIVE PERCENT (BEAKER) (test 27 % vqcn=702) MONOCYTES RELATIVE PERCENT (BEAKER) (test 5 % shjf=117) EOSINOPHILS RELATIVE PERCENT (BEAKER) (test 0 % vllx=190) BASOPHILS RELATIVE PERCENT (BEAKER) (test 0 % kiec=474) NEUTROPHILS ABSOLUTE COUNT (BEAKER) (test 4.18 K/ L 1.56-6.13 whbh=845) LYMPHOCYTES ABSOLUTE COUNT (BEAKER) (test 1.69 K/ L 1.18-3.74 tnpn=862) MONOCYTES ABSOLUTE COUNT (BEAKER) (test 0.29 K/ L 0.24-0.36 oosx=745) EOSINOPHILS ABSOLUTE COUNT (BEAKER) (test 0.01 K/ L 0.04-0.36 zloc=100) BASOPHILS ABSOLUTE COUNT (BEAKER) (test 0.02 K/ L 0.01-0.08 vifa=345) IMMATURE GRANULOCYTES-RELATIVE PERCENT (BEAKER) 1 % 0-1 (test fwab=1435) CT, ABDOMEN - PELVIS, [id number] 14:17:00Reason for exam:-> Evaluation of small bowel [...] lesion demonstrated. Endplate degenerative change at L1-2 pvwJ24-L6 noted. There is an implanted pump in the right lower quadrant subcutaneous fat with a lead going to the thecal sac terminating at the T11 level. IMPRESSION: Evidence of acute colitis of the sigmoid colon. No small bowel enteritis demonstrated. No stricture, fistula, or intramesenteric abscess demonstrated. Signed: Vicente Montero MDReport Verified Date/Time: 07/08/2018 14:17:31 Reading Location: [facility] B1 [id number] Ortho Consult Reading Room BASI METABOLIC [id number] 06:53:00 Test Item Value Reference Range Comments SODIUM (BEAKER) (test 137 meq/L 136-145 sojr=845) POTASSIUM (BEAKER) (test 4.2 meq/L 3.5-5.1 qxhi=077) CHLORIDE (BEAKER) (test 105 meq/L 98-107 wmco=697) CO2 (BEAKER) (test 23 meq/L 22-29 ijgi=061) BLOOD UREA NITROGEN 3 mg/dL 7-21 (BEAKER) (test squn=913) CREATININE (BEAKER) (test 0.75 mg/dL 0.57-1.25 ukvi=440) GLUCOSE RANDOM (BEAKER) 85 mg/dL 70-105 (test bgiw=367) CALCIUM (BEAKER) (test 8.6 mg/dL 8.4-10.2 ksle=223) EGFR (BEAKER) (test 83 mL/min/1.73 sq m ESTIMATED GFR IS NOT dcgy=3415) ACCURATE CREATININE CLEARANCE IN PREDICTING GLOMERULAR FILTRATION RATE. ESTIMATED GFR IS NOT APPLICABLE FOR DIALYSIS PATIENTS. CBC W/PLT COUNT & AUTO [id number] 06:25:00 Test Item Value Reference Range Comments WHITE BLOOD CELL COUNT (BEAKER) (test didn=071) 5.3 K/ L 3.5-10.5 RED BLOOD CELL COUNT (BEAKER) (test axgm=130) 4.11 M/ L 3.93-5.22 HEMOGLOBIN (BEAKER) (test azds=269) 12.8 GM/DL 11.2-15.7 HEMATOCRIT (BEAKER) (test dbuv=583) 40.4 % 34.1-44.9 MEAN CORPUSCULAR VOLUME (BEAKER) (test wucb=115) 98.3 fL 79.4-94.8 MEAN CORPUSCULAR HEMOGLOBIN (BEAKER) (test 31.1 pg 25.6-32.2 heza=544) MEAN CORPUSCULAR HEMOGLOBIN CONC (BEAKER) (test 31.7 GM/DL 32.2-35.5 hndu=949) RED CELL DISTRIBUTION WIDTH (BEAKER) (test 13.7 % 11.7-14.4 gvef=712) PLATELET COUNT (BEAKER) (test bkly=749) 213 K/CU MM 150-450 MEAN PLATELET VOLUME (BEAKER) (test tose=882) 8.9 fL 9.4-12.3 NUCLEATED RED BLOOD CELLS (BEAKER) (test 0 /100 WBC 0-0 ggky=738) NEUTROPHILS RELATIVE PERCENT (BEAKER) (test 47 % pxxm=178) LYMPHOCYTES RELATIVE PERCENT (BEAKER) (test 39 % mteg=522) MONOCYTES RELATIVE PERCENT (BEAKER) (test 9 % sydb=080) EOSINOPHILS RELATIVE PERCENT (BEAKER) (test 5 % npsf=991) BASOPHILS RELATIVE PERCENT (BEAKER) (test 0 % elno=904) NEUTROPHILS ABSOLUTE COUNT (BEAKER) (test 2.48 K/ L 1.56-6.13 yoic=088) LYMPHOCYTES ABSOLUTE COUNT (BEAKER) (test 2.04 K/ L 1.18-3.74 dstk=343) MONOCYTES ABSOLUTE COUNT (BEAKER) (test 0.45 K/ L 0.24-0.36 tzmn=431) EOSINOPHILS ABSOLUTE COUNT (BEAKER) (test 0.26 K/ L 0.04-0.36 sgxb=656) BASOPHILS ABSOLUTE COUNT (BEAKER) (test 0.02 K/ L 0.01-0.08 dbjy=705) IMMATURE GRANULOCYTES-RELATIVE PERCENT (BEAKER) 0 % 0-1 (test kcwy=2642) SHIGA TOXIN [id number] 13:53:00 Test Item Value Reference Range Comments SHIGA TOXIN 1 (BEAKER) (test wbcp=7255) Not detected Not detected SHIGA TOXIN 2 (BEAKER) (test wloa=4001) Not detected Not detected C. DIFFICILE H [id number] 13:28:00 Test Item Value Reference Range Comments CDT TOXIN (test Negative Negative xzyj=[id number]) CDT GDH ANTIGEN (test Negative Negative No indication of Clostridium dumy=[id number]) difficile infection and no colonization. Discontinue enteric isolation and therapy. Testing performed by ? Rapid Cassette Assay. For GDH, published sensitivity of the assay is 98.7% compared to cytotoxicity testing. For Toxin AB, published sensitivity is 87.8% and specificity 99.4% compared to cytotoxicity testing.Verification of kit performance was done by the [facility] Microbiology Lab prior to clinical use.STOOL PATH [id number] 10:17:00 Test Item Value Reference Range Comments PATHOGEN EXAM CHARGED (BEAKER) (test ooxs=9824) Done BASIC METABOLIC [id number] 05:17:00 Test Item Value Reference Range Comments SODIUM (BEAKER) (test 142 meq/L 136-145 hngv=161) POTASSIUM (BEAKER) (test 4.3 meq/L 3.5-5.1 lfhq=176) CHLORIDE (BEAKER) (test 110 meq/L 98-107 mccy=941) CO2 (BEAKER) (test 25 meq/L 22-29 sgvn=387) BLOOD UREA NITROGEN 5 mg/dL 7-21 (BEAKER) (test eagf=165) CREATININE (BEAKER) (test 0.78 mg/dL 0.57-1.25 rwgi=228) GLUCOSE RANDOM (BEAKER) 108 mg/dL 70-105 (test cmcs=626) CALCIUM (BEAKER) (test 8.9 mg/dL 8.4-10.2 mmur=137) EGFR (BEAKER) (test 80 mL/min/1.73 sq m ESTIMATED GFR IS NOT zwkm=1308) ACCURATE CREATININE CLEARANCE IN PREDICTING GLOMERULAR FILTRATION RATE. ESTIMATED GFR IS NOT APPLICABLE FOR DIALYSIS PATIENTS. CBC W/PLT COUNT & AUTO [id number] 04:58:00 Test Item Value Reference Range Comments WHITE BLOOD CELL COUNT (BEAKER) (test aksv=994) 4.8 K/ L 3.5-10.5 RED BLOOD CELL COUNT (BEAKER) (test vqrr=829) 3.79 M/ L 3.93-5.22 HEMOGLOBIN (BEAKER) (test upxe=215) 11.8 GM/DL 11.2-15.7 HEMATOCRIT (BEAKER) (test gkvd=095) 37.6 % 34.1-44.9 MEAN CORPUSCULAR VOLUME (BEAKER) (test jhep=814) 99.2 fL 79.4-94.8 MEAN CORPUSCULAR HEMOGLOBIN (BEAKER) (test 31.1 pg 25.6-32.2 hcrb=582) MEAN CORPUSCULAR HEMOGLOBIN CONC (BEAKER) (test 31.4 GM/DL 32.2-35.5 snkd=253) RED CELL DISTRIBUTION WIDTH (BEAKER) (test 14.5 % 11.7-14.4 vfjh=876) PLATELET COUNT (BEAKER) (test xxep=669) 216 K/CU MM 150-450 MEAN PLATELET VOLUME (BEAKER) (test zfwy=815) 9.3 fL 9.4-12.3 NUCLEATED RED BLOOD CELLS (BEAKER) (test 0 /100 WBC 0-0 sfbp=074) NEUTROPHILS RELATIVE PERCENT (BEAKER) (test 44 % qvys=064) LYMPHOCYTES RELATIVE PERCENT (BEAKER) (test 44 % gkjk=195) MONOCYTES RELATIVE PERCENT (BEAKER) (test 6 % jlhu=821) EOSINOPHILS RELATIVE PERCENT (BEAKER) (test 5 % szji=791) BASOPHILS RELATIVE PERCENT (BEAKER) (test 0 % yrot=271) NEUTROPHILS ABSOLUTE COUNT (BEAKER) (test 2.14 K/ L 1.56-6.13 zmvk=618) LYMPHOCYTES ABSOLUTE COUNT (BEAKER) (test 2.12 K/ L 1.18-3.74 nptc=025) MONOCYTES ABSOLUTE COUNT (BEAKER) (test 0.31 K/ L 0.24-0.36 gwfp=801) EOSINOPHILS ABSOLUTE COUNT (BEAKER) (test 0.24 K/ L 0.04-0.36 dymd=396) BASOPHILS ABSOLUTE COUNT (BEAKER) (test 0.01 K/ L 0.01-0.08 gyyx=240) IMMATURE GRANULOCYTES-RELATIVE PERCENT (BEAKER) 0 % 0-1 (test onea=7128) RAD, CHEST, 1 VIEW, NON [id number] 14:21:00Reason for exam:->FeverShould this be performed at the bedside?->YesFINAL REPORT TECHNIQUE: Frontal chest radiograph dated 07/06/2018. CLINICAL HISTORY: Fever COMPARISON STUDY: None IMPRESSION:Lungs are clear. No pleural effusion or pneumothorax. Cardiomediastinal silhouette is normal in size. No pulmonary edema. No fracture. Signed: Xiao Mckinney MDReport Verified Date/Time: 11/2018 14:21:04 Reading Location: [facility] Radiology Reading Room RAPID DRUG SCREEN , [id number] 12:52:00 Test Item Value Reference Range Comments BARBITURATE URINE (BEAKER) (test otig=351) Negative Negative BENZODIAZEPINE SCREEN URINE (BEAKER) (test Positive Negative zhej=358) COCAINE (METAB.) SCREEN (BEAKER) (test ssqp=9717) Negative Negative METHADONE SCREEN (BEAKER) (test bmpq=4264) Negative Negative OPIATE SCREEN URINE (BEAKER) (test ywje=597) Positive Negative CANNABINOID SCREEN URINE (BEAKER) (test xngu=132) Negative Negative AMPH/METHAMPH SCREEN (BEAKER) (test trgx=6516) Negative Negative PHENCYCLIDINE SCREEN URINE (BEAKER) (test mpaw=939) Negative Negative OXYCODONE SCREEN URINE (BEAKER) (test kuoq=0239) Negative Negative DRUG CUTOFF CONC.Cocaine 300 ng/mL Cannabinoid 50 ng/mL Benzodiazepine 200 ng/mLBarbiturate 200 ng/ mLPhencyclidine 25 ng/mLOpiate 300 ng/mLMethadone 300 ng/mLAmphetamine/ 1000 ng/mL MethamphetamineOxycodone 300 ng/mLThis assay provides an unconfirmed qualitative test result for the clinical management of patients in emergency situations. Chain of custody not maintained. Some guwt-zmp-nfzugmp medications, as well as adulterants, may cause inaccurate results. Clinical correlation should be applied. A more comprehensive drug screen or confirmation of a detected drug may be performed upon request.CBC W/PLT COUNT & AUTO [id number] 12:40:00 Test Item Value Reference Range Comments WHITE BLOOD CELL COUNT (BEAKER) (test pcbw=825) 8.7 K/ L 3.5-10.5 RED BLOOD CELL COUNT (BEAKER) (test mnaw=994) 4.01 M/ L 3.93-5.22 HEMOGLOBIN (BEAKER) (test jwbo=814) 12.6 GM/DL 11.2-15.7 HEMATOCRIT (BEAKER) (test pkno=126) 39.3 % 34.1-44.9 MEAN CORPUSCULAR VOLUME (BEAKER) (test qggn=825) 98.0 fL 79.4-94.8 MEAN CORPUSCULAR HEMOGLOBIN (BEAKER) (test 31.4 pg 25.6-32.2 evnf=950) MEAN CORPUSCULAR HEMOGLOBIN CONC (BEAKER) (test 32.1 GM/DL 32.2-35.5 hrit=700) RED CELL DISTRIBUTION WIDTH (BEAKER) (test 14.3 % 11.7-14.4 jben=506) PLATELET COUNT (BEAKER) (test qkor=845) 212 K/CU MM 150-450 MEAN PLATELET VOLUME (BEAKER) (test smep=618) 10.0 fL 9.4-12.3 NUCLEATED RED BLOOD CELLS (BEAKER) (test 0 /100 WBC 0-0 jbrb=105) NEUTROPHILS RELATIVE PERCENT (BEAKER) (test 65 % cpul=190) LYMPHOCYTES RELATIVE PERCENT (BEAKER) (test 25 % qgvk=244) MONOCYTES RELATIVE PERCENT (BEAKER) (test 7 % isji=749) EOSINOPHILS RELATIVE PERCENT (BEAKER) (test 2 % fvye=518) BASOPHILS RELATIVE PERCENT (BEAKER) (test 0 % abfs=304) NEUTROPHILS ABSOLUTE COUNT (BEAKER) (test 5.70 K/ L 1.56-6.13 ntpe=954) LYMPHOCYTES ABSOLUTE COUNT (BEAKER) (test 2.18 K/ L 1.18-3.74 pjox=935) MONOCYTES ABSOLUTE COUNT (BEAKER) (test 0.59 K/ L 0.24-0.36 bcsz=341) EOSINOPHILS ABSOLUTE COUNT (BEAKER) (test 0.17 K/ L 0.04-0.36 cjps=227) BASOPHILS ABSOLUTE COUNT (BEAKER) (test 0.02 K/ L 0.01-0.08 iwli=383) IMMATURE GRANULOCYTES-RELATIVE PERCENT (BEAKER) 1 % 0-1 (test huqi=3064) [id number] 12:12:00 Test Item Value Reference Range Comments PHOSPHORUS (BEAKER) (test pbym=942) 3.0 mg/dL 2.3-4.7 [id number] 12:12:00 Test Item Value Reference Range Comments MAGNESIUM (BEAKER) (test dtvn=361) 2.1 mg/dL 1.6-2.6 BASIC METABOLIC [id number] 12:12:00 Test Item Value Reference Range Comments SODIUM (BEAKER) (test 138 meq/L 136-145 kovr=413) POTASSIUM (BEAKER) (test 3.7 meq/L 3.5-5.1 jkpn=477) CHLORIDE (BEAKER) (test 104 meq/L 98-107 jeop=377) CO2 (BEAKER) (test 25 meq/L 22-29 vejs=087) BLOOD UREA NITROGEN 8 mg/dL 7-21 (BEAKER) (test vbhx=155) CREATININE (BEAKER) (test 0.72 mg/dL 0.57-1.25 eqoz=788) GLUCOSE RANDOM (BEAKER) 93 mg/dL 70-105 (test wndb=160) CALCIUM (BEAKER) (test 9.1 mg/dL 8.4-10.2 cwri=209) EGFR (BEAKER) (test 87 mL/min/1.73 sq m ESTIMATED GFR IS NOT swgq=7420) ACCURATE CREATININE CLEARANCE IN PREDICTING GLOMERULAR FILTRATION RATE. ESTIMATED GFR IS NOT APPLICABLE FOR DIALYSIS PATIENTS. HEPATIC FUNCTION [id number] 12:12:00 Test Item Value Reference Range Comments TOTAL PROTEIN (BEAKER) (test rnlz=130) 6.4 gm/dL 6.0-8.3 ALBUMIN (BEAKER) (test nejv=4093) 3.9 g/dL 3.5-5.0 BILIRUBIN TOTAL (BEAKER) (test wtqy=364) 0.5 mg/dL 0.2-1.2 BILIRUBIN DIRECT (BEAKER) (test eska=204) 0.2 mg/dL 0.1-0.5 ALKALINE PHOSPHATASE (BEAKER) (test flaq=468) 78 U/L 40-150 AST (SGOT) (BEAKER) (test ypjb=119) 14 U/L 5-34 ALT (SGPT) (BEAKER) (test zbfp=361) 12 U/L 6-55 LACTIC ACID, VENOUS, WHOLE [id number] 12:08:00 Test Item Value Reference Range Comments LACTATE BLOOD VENOUS (2) 0.8 mmol/L 0.5-2.2 Specimen moderately hemolyzed (BEAKER) (test ajsp=0511) URINALYSIS W/ REFLEX URINE [id number] 11:10:00 Test Item Value Reference Range Comments COLOR (BEAKER) (test xocc=804) Light Yellow CLARITY (BEAKER) (test vphb=129) Clear SPECIFIC GRAVITY UA (BEAKER) (test tiiy=300) 1.020 1.001-1.035 PH UA (BEAKER) (test pnzd=419) 6.5 5.0-8.0 PROTEIN UA (BEAKER) (test jskb=474) Negative Negative GLUCOSE UA (BEAKER) (test wson=355) Negative Negative KETONES UA (BEAKER) (test gibr=513) Negative Negative BILIRUBIN UA (BEAKER) (test fvfl=077) Negative Negative BLOOD UA (BEAKER) (test thyz=376) Negative Negative NITRITE UA (BEAKER) (test ynrz=579) Negative Negative LEUKOCYTE ESTERASE UA (BEAKER) (test vuhy=951) Negative Negative UROBILINOGEN UA (BEAKER) (test phsi=818) 0.2 mg/dL 0.2-1.0 RBC UA (BEAKER) (test oofc=215) < /HPF WBC UA (BEAKER) (test lidu=942) 0 /HPF SQUAMOUS EPITHELIAL (BEAKER) (test bvpf=280) < /HPF SOURCE(BEAKER) (test uymc=9170) CT ABDOMEN/PELVIS [id number] 14:26:[address] [id number] IMAGING REPORTPatient Name : Manuel DEL TORO of Service: [id number]: 45 Sex: F Order #: [id number] [facility] 1970 [facility] Number: [id number] Record Number: [id number] Hospital Number: [id number] Physician: KISHAN MUNOZ - Ordering Physician: HERNANDEZ [...] by TIFFANIE Syed 2016-07-26 14:23:48CT ABDOMEN/ PELVIS [id number] 02:49:[address] IMAG[address] REPORTPatient Name: Manuel DEL TORO of Service: [id number]: 45 Sex: F Order #: [id number] Room[facility]/ A 2NEDOB: 1970 X-Ray Number: [id number] Record Number: [id number] Hospital Number: [id number] Physician: BLAKE ALLEN - Ordering Physician: AURORA [...] authenticated by MARTINEZ VALDEZ 2016-07-17 02:47:19ABDOMEN 2 [id number] 12:14:[address] [id number] IMAGING REPORTPatient Name: Manuel DEL TORO of Service: [id number]: 45 Sex: F Order #: [id number] [facility] 1970 [facility] Number: [id number] Record Number: [id number] Hospital Number: [id number] Physician: Austin TEJEDA Physician: Elvis GARCIA 2 [...]
--- OUTSIDE RECORDS SUMMARY | 2018-10-15 14:57 | XMS REPORT | Encounter Summary ---
:1970 Author Reason for Visit Follow Up Visit Instructions 1. Crohn's disease of small intestine crohn's disease: care instructions diet for inflammatory bowel disease: care instructions 2. Postoperative visit Discussion Note: None recorded. Plan of Care Reminders Provider Appointments None recorded. Lab None recorded. Referral None recorded. Procedures None recorded. Surgeries None recorded. Imaging None recorded. Medications Name Start Date celecoxib 100 mg capsule clindamycin HCl 300 mg capsule clonazepam 1 mg tablet 1 TAB PO FOUR TIMES A DAILY NEEDED escitalopram 20 mg tablet 1/2 TAB PO QD gabapentin 300 mg capsule hydrocodone 7.5 mg-acetaminophen 325 mg tablet PAIN MANAGEMENT mesalamine 1.2 gram tablet,delayed release 2 TAB PO QD metoclopramide 10 mg tablet 1 TAB PO EVERY 6 HOURS; 30MIN BEFORE MEALS metronidazole 500 mg tablet nystatin 100,000 unit/mL oral suspension oxycodone 10 mg tablet pantoprazole 40 mg tablet,delayed release 1 TAB PO QD prednisone 10 mg tablet 4 TAB X3 DAYS, THEN TAPER quetiapine 100 mg tablet Stelara 90 mg/mL subcutaneous syringe tramadol 50 mg tablet valacyclovir 1 gram tablet Medications Administered None recorded. Vitals Height Weight BMI Blood Pressure 62 in 148 lbs 16 oz 27.3 kg/m2 105/80 mm[Hg] Lab Results None recorded. Allergies Code Code System Name Reaction Severity Status Onset 20341001 RxNorm Cipro Other Severe Active 499967 RxNorm Phenergan Facial Moderate Active Swelling Problems Name Status Onset Date Source Chronic Pain Active 08/15/2018 Gastroesophageal Reflux Disease Active 08/15/2018 Crohn's Disease of Small Intestine Active 08/15/2018 Endometriosis (Clinical) Active 08/15/2018 Multiple Joint Pain Active 08/15/2018 Postoperative Visit Active 08/29/2018 Procedures Date Name Performed by Large Intestine Excision Information not available Cholecystectomy Information not available Hysterectomy Information not available Vaccine List None recorded. Social History Smoking Status Current Every Day Smoker Past Encounters 08/29/2018 Crohn's Disease of Small Intestine; Postoperative Visit Mychal Dai MD: [address] [place] [address], [address], [place] [id number], Ph. [phone] 08/15/2018 Crohn's Disease of Small Intestine; Chronic Pain; Multiple Joint Pain; Gastroesophageal Reflux Disease Mychal Dai MD: [address] [place] [address], [address], [place] [address], Ph. History of Present Illness Note: CC here for f/up to partial small bowel resection for crohns disease doing great no problems<div>CC "esophagus closing"</div><div> hpi has had problem for yrs when she sleeps on her back has had neg w/up</div ><div>Post op f/up</div>Review of Systems: ROS as noted in the HPI Review of Systems None recorded. Physical Exam Notes: consult
--- OUTSIDE RECORDS SUMMARY | 2018-10-15 14:57 | XMS REPORT | Encounter Summary ---
:1970 Author Reason for Visit new patient Instructions 1. Crohn's disease of small intestine crohn's disease: care instructions diet for inflammatory bowel disease: care instructions 2. Chronic pain chronic pain: care instructions 3. Multiple joint pain 4. Gastroesophageal reflux disease pantoprazole 40 mg tablet,delayed release Discussion Note: None recorded. Plan of Care Reminders Provider Appointments None recorded. Lab None recorded. Referral None recorded. Procedures None recorded. Surgeries None recorded. Imaging None recorded. Medications Name Start Date clonazepam 1 mg tablet 1 TAB PO FOUR TIMES A DAILY NEEDED escitalopram 20 mg tablet 1/2 TAB PO QD hydrocodone 7.5 mg-acetaminophen 325 mg tablet PAIN MANAGEMENT mesalamine 1.2 gram tablet,delayed release 2 TAB PO QD metoclopramide 10 mg tablet 1 TAB PO EVERY 6 HOURS; 30MIN BEFORE MEALS nystatin 100,000 unit/mL oral suspension pantoprazole 40 mg tablet,delayed release 1 TAB PO QD take for GI sx prednisone 10 mg tablet 4 TAB X3 DAYS, THEN TAPER Stelara 90 mg/mL subcutaneous syringe valacyclovir 1 gram tablet Medications Administered None recorded. Vitals Height Weight BMI Blood Pressure 62 in 159 lbs 29.1 kg/m2 136/94 mm[Hg] Lab Results None recorded. Allergies Code Code System Name Reaction Severity Status Onset 663718 RxNorm Cipro Other Severe Active 134948 RxNorm Phenergan Facial Moderate Active Swelling Problems Name Status Onset Date Source Chronic Pain Active 08/15/2018 Gastroesophageal Reflux Disease Active 08/15/2018 Crohn's Disease of Small Intestine Active 08/15/2018 Endometriosis (Clinical) Active 08/15/2018 Multiple Joint Pain Active 08/15/2018 Procedures Date Name Performed by Large Intestine Excision Information not available Cholecystectomy Information not available Hysterectomy Information not available Vaccine List None recorded. Social History Smoking Status Current Every Day Smoker Past Encounters 08/15/2018 Crohn's Disease of Small Intestine; Chronic Pain; Multiple Joint Pain; Gastroesophageal Reflux Disease Mychal Dai MD: [address] [place] [address], [address], [place] [address], Ph. 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 <div>CC long hx of Chrone's disease is to have partial small bowel resection 08-24-18 in [place] </div><div>hpi recently hosp in [place] x 2 wks for partial bowel obstruction, discharged 3 wks ago on prednisone taper to try to decrease the inflamation before the surgery</div& gt;<div>CC chronic pain</div><div>hpi sees pain management dr needs hydrocodone refilled x [address] back from vacation&lt ;/div><div>CC hx of endometriosis</div><div>hpi had AARON BSO took HRT for short time 10- yrs ago no DEXA scan on Ca and Vit D</div> <div>smoker, social drinker</div><div>has 1 son 13 yr old</ div><div>UTD on flu and pneumonia vaccines</div><div>needs mammo and bone density</div><div>ros</div><div>gen chronic GI issues</div><div>cv neg</div><div>resp neg&lt ;/div><div>gi above</div><div>gu above</div><div& gt;m/s polyarthralgias</div>Review of Systems: ROS as noted in the HPI Review of Systems None recorded. Physical Exam Dr. Dai Brief Adult Exam - M/F Reported By: Patient Constitutional: General Appearance: healthy-appearing, well-nourished, well-developed. Level of Distress: NAD. Ambulation: ambulating normally Neck: Neck: supple, trachea midline, no masses, FROM. Lymph Nodes: no cervical LAD, no supraclavicular LAD Lungs: Auscultation: breath sounds normal, good air movement, CTA except as noted, no wheezing, no rales/crackles, no rhonchi Cardiovascular: Heart Auscultation: RRR, no rubs, no gallops Musculoskeletal: Edema absent Notes: Chow face from steroids recent 10 # wt gain
--- OUTSIDE RECORDS SUMMARY | 2018-10-15 14:58 | XMS REPORT | Encounter Summary ---
:1970 Author Reason for Visit poss hernia Instructions 1. Umbilical pain tramadol 50 mg tablet Discussion Note RTC for any other concerns Patient educational handouts: No information available. Plan of Care Patient Instructions tramadol as directed; rec f/u with surgeon Reminders Provider Appointments None recorded. Lab None recorded. Referral None recorded. Procedures None recorded. Surgeries None recorded. Imaging None recorded. Medications Name Start Date celecoxib 100 mg capsule clonazepam 1 mg tablet 1 TAB PO FOUR TIMES A DAILY NEEDED escitalopram 10 mg tablet escitalopram 20 mg tablet 1/2 TAB PO QD fluconazole 150 mg tablet gabapentin 300 mg capsule mesalamine 1.2 gram tablet,delayed release 2 TAB PO QD metoclopramide 10 mg tablet 1 TAB PO EVERY 6 HOURS; 30MIN BEFORE MEALS metronidazole 500 mg tablet nystatin 100,000 unit/mL oral suspension pantoprazole 40 mg tablet,delayed release 1 TAB PO QD prednisone 10 mg tablet 4 TAB X3 DAYS, THEN TAPER quetiapine 100 mg tablet Stelara 90 mg/mL subcutaneous syringe tramadol 50 mg tablet Take 1 tablet every 8 hours by oral route as needed. valacyclovir 1 gram tablet Medications Administered None recorded. Vitals Height Weight BMI Blood Pressure 62 in 148 lbs 16 oz 27.3 kg/m2 120/84 mm[Hg] Lab Results None recorded. Allergies Code Code System Name Reaction Severity Status Onset 844558 RxNorm Cipro Other Severe Active 894941 RxNorm Phenergan Facial Moderate Active Swelling Problems [...] Status Current Every Day Smoker Past Encounters 09/17/2018 Umbilical Pain Julia Schulz PAINT AND TABLE EDGER: [address] [facility], [address], [place] [address], Ph. 08/29/2018 Crohn's Disease of Small Intestine; Postoperative Visit Mychal Dai MD: [address] [place] [address], [address], [place] [address], Ph. History of Present Illness Note: pt to clinic for pain to abdomen; she reports surgery about 4 weeks ago ; she thinks she may havehernia; she is taking tylenol for pain Review of Systems General Adult ROS Reported By: Patient Constitutional: Constitutional: no fever Cardiovascular: Cardiovascular: no chest pain Respiratory: Respiratory: no cough, no wheezing, no shortness of breath Gastrointestinal: Gastrointestinal: no vomiting, no diarrhea, abdominal pain Musculoskeletal: Musculoskeletal: no swelling in the extremities Neurologic: Neurologic: no dizziness, no headaches Endocrine: Endocrine: no fatigue Physical Exam Vesta Brief Adult Exam - M/F Reported By: Patient Constitutional: General Appearance: healthy-appearing, well-nourished, well-developed. Level of Distress: mild distress. Ambulation: ambulating normally Psychiatric: Mental Status: active and alert Lungs: Auscultation: breath sounds normal Cardiovascular: Heart Auscultation: RRR, normal S1, normal S2, no murmurs Abdomen: Bowel Sounds: normal. Inspection and Palpation: soft, non-distended, no guarding; umbilical tenderness; no bulge noted
[2018-10-15 16:49] LABS: Absolute Lymphocytes (CBC) 2.2 K/uL (0.7-4.9); Basophils % 0.5 % (0-1.3); Eosinophils % 3.3 % (0-4.4); Hematocrit 40.4 % (36.0-45.0); Lymphocytes % 30.6 % (15.3-44.8); MPV 6.9 fL (7.6-11.3); Monocytes % 8.1 % (3.3-12.3); RBC Red Blood Cell Count 4.32 M/uL (3.86-4.86)
[2018-10-15] MEDS ORDERED: ONDANSETRON 4 MG/2 ML VIAL ONE (16:56)
[2018-10-15] MEDS ORDERED: FAMOTIDINE 20 MG/2 ML VIAL IV ONE (16:56)
[2018-10-15] MEDS ORDERED: KETOROLAC 30 MG/ML INJ ONE ×2 (16:56→23:21)
[2018-10-15] MEDS ORDERED: PIPER/TAZO/NS 3.375gm 3.375 GM/100 ML BAG ONE (16:56)
[2018-10-15] MEDS ORDERED: NA CHLORIDE 0.9% 1,000 ML ONE (16:57)
[2018-10-15] MEDS ORDERED: METRONIDAZOLE 500mg IVPB 500 MG/100 ML BAG IV ONE (16:57)
[2018-10-15 17:25] LABS: Albumin 3.3 g/dL (3.4-5.0); Bilirubin Direct 0.1 mg/dL (0-0.2); Bilirubin Total 0.3 mg/dL (0.2-1.0); Potassium 3.8 mmol/L (3.5-5.1); Protein, Total 7.2 g/dL (6.4-8.2)
[2018-10-15] MEDS ORDERED: FENTANYL CITR 100 MCG/2 ML ONE ×2 (18:15→19:58)
--- NOTE | 2018-10-15 18:38 | RAD REPORT ---
EXAM DESCRIPTION: CTAbdomen Pelvis W Contrast - 10/15/2018 6:17 pm CLINICAL HISTORY: Abdominal pain. abd pain, diarrhea COMPARISON: <Comparisons> TECHNIQUE: Biphasic CT imaging of the abdomen and pelvis was performed with 100 ml non-ionic IV cont rast. All CT scans are performed using dose optimization technique as appropriate and may include automated exposure control or mA/KV adjustment according to patient size. FINDINGS: The lung bases are clear. The liver, spleen, pancreas, adrenal glands and kidneys are within normal limits. Bilateral renal cy sts are present. Cholecystectomy. No bowel obstruction, free air, free fluid or abscess. Significant inflammation is seen involving il eoolic anastomosis region in the right upper quadrant. Mild transverse colon adjacent wall thickening seen. Full assessment in this region is limited by streak artifact from a stimulator device. However , no finding is seen to suggest anastomotic breakdown. The appendix is not visualized as a discrete s tructure. No suspicious bony findings. IMPRESSION: Moderately severe inflammatory changes are present in the region of the ileocolonic anas tomosis in the right upper quadrant. Ileitis/colitis is a possibility, however full assessment in thi s region is limited due to streak artifact. Followup colonoscopy would be suggested for full assessme nt.
[2018-10-15 19:23] LABS: Urine Blood NEGATIVE (NEG); Urine Glucose NEGATIVE (NEG); Urine Protein NEGATIVE (NEG)
[2018-10-15 19:37] LABS: Urine Bacteria NONE SEEN /HPF (<20); Urine Culture Reflex Order NOT NEEDED; Urine RBC NONE SEEN /HPF (NONE SEEN)
--- NOTE | 2018-10-15 19:42 | EDPHYS ---
Physician Documentation [facility] Name: Angela Rodriguez Age: 48 yrs Sex: Female : 1970 Arrival Date: 10/15/2018 Time: 14:50 Bed 19 Private MD: ED Physician Jorge L Bañuelos HPI: 10/15 17:42 This 48 yrs old Female presents to ER via Ambulatory with complaints of wa Crohns Flare Up. 17:42 The patient presents with abdominal pain that is diffuse. Onset: The symptoms/episode wa began/occurred 5 day(s) ago. The symptoms do not radiate. Associated signs and symptoms: Pertinent positives: diarrhea, loss of appetite, Pertinent negatives: constipation, dysuria, fever, palpitations, shortness of breath, vomiting. The symptoms are described as sharp. Modifying factors: The symptoms are alleviated by nothing, the symptoms are aggravated by food. Severity of pain: At its worst the pain was moderate in the emergency department the pain is actually worse moderately. The patient has experienced similar episodes in the past, multiple times, h/o Crohns' s/p bowel obstruction x 2. s/p bowel resection x 2 . The patient has not recently seen a physician. 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 - Social history:: Smoking status: Patient uses tobacco products, smokes one-half pack cigarettes per day. - Ebola Screening: : Patient denies exposure to infectious person Patient denies travel to an Ebola-affected area in the 21 days before illness onset. - Family history:: not pertinent. - Hospitalizations: : No recent hospitalization is reported. ROS: 17:45 Constitutional: Negative for fever, chills, and weight loss, Eyes: Negative for injury, wa pain, redness, and discharge, ENT: Negative for injury, pain, and discharge, Neck: Negative for injury, pain, and swelling, Cardiovascular: Negative for chest pain, palpitations, and edema, Respiratory: Negative for shortness of breath, cough, wheezing, and pleuritic chest pain, Back: Negative for injury and pain, : Negative for injury, bleeding, discharge, and swelling, MS/Extremity: Negative for injury and deformity, Skin: Negative for injury, rash, and discoloration, Neuro: Negative for headache, weakness, numbness, tingling, and seizure, Psych: Negative for depression, anxiety, suicide ideation, homicidal ideation, and hallucinations. 17:45 Abdomen/GI: Positive for abdominal pain, diarrhea, Negative for vomiting. 17:45 All other systems are negative. Exam: 17:46 Constitutional: This is a well developed, well nourished patient who is awake, alert, wa and in no acute distress. Head/Face: Normocephalic, atraumatic. Eyes: Pupils equal round and reactive to light, extra-ocular motions intact. Lids and lashes normal. Conjunctiva and sclera are non-icteric and not injected. Cornea within normal limits. Periorbital areas with no swelling, redness, or edema. ENT: Nares patent. No nasal discharge, no septal abnormalities noted. Tympanic membranes are normal and external auditory canals are clear. Oropharynx with no redness, swelling, or masses, exudates, or evidence of obstruction, uvula midline. Mucous membranes moist. Neck: Trachea midline, no thyromegaly or masses palpated, and no cervical lymphadenopathy. Supple, full range of motion without nuchal rigidity, or vertebral point tenderness. No Meningismus. Chest/axilla: Normal chest wall appearance and motion. Nontender with no deformity. No lesions are appreciated. Cardiovascular: Regular rate and rhythm with a normal S1 and S2. No gallops, murmurs, or rubs. Normal PMI, no JVD. No pulse deficits. Respiratory: Lungs have equal breath sounds bilaterally, clear to auscultation and percussion. No rales, rhonchi or wheezes noted. No increased work of breathing, no retractions or nasal flaring. Back: No spinal tenderness. No costovertebral tenderness. Full range of motion. Skin: Warm, dry with normal turgor. Normal color with no rashes, no lesions, and no evidence of cellulitis. MS/ Extremity: Pulses equal, no cyanosis. Neurovascular intact. Full, normal range of motion. Neuro: Awake and alert, GCS 15, oriented to person, place, time, and situation. Cranial nerves II-XII grossly intact. Motor strength 5/5 in all extremities. Sensory grossly intact. Cerebellar exam normal. Normal gait. Psych: Awake, alert, with orientation to person, place and time. Behavior, mood, and affect are within normal limits. 17:46 Abdomen/GI: Inspection: abdomen appears normal, Bowel sounds: normal, Palpation: mild abdominal tenderness, in the diffuse, Rectal exam: is unremarkable, Stool: guaiac negative, the exam is chaperoned by the nurse, no rectal lesions noted on visual exam or on palpation. Vital Signs: 15:11 BP 80 / 63; Pulse 89; Resp 15; Temp 98.0(TE); Pulse Ox 94% on R/A; Weight 63.5 kg; bp Height 5 ft. 2 in. (157.48 cm); Pain 10/10; 16:40 BP 113 / 82; Pulse 88; Resp 18; Pulse Ox 96% on R/A; hj 17:04 BP 106 / 71; Pulse 87; Resp 18; Pulse Ox 96% on R/A; hj 18:53 BP 115 / 78; Pulse 82; Resp 18; Pulse Ox 95% on R/A; hj 19:15 BP 127 / 93; Pulse 68; Resp 17 S; Temp 98(O); Pulse Ox 96% on R/A; Pain 9/10; cc3 20:45 BP 135 / 92; Pulse 71; Resp 15 S; Pulse Ox 98% on R/A; Pain 5/10; cc3 21:45 BP 127 / 91; Pulse 68; Resp 17 S; Pulse Ox 95% on R/A; cc3 22:30 BP 127 / 96; Pulse 71; Resp 18 S; Pulse Ox 95% on R/A; cc3 23:40 BP 107 / 83; Pulse 73; Resp 17 S; Pulse Ox 96% on R/A; cc3 15:11 Body Mass Index 25.61 (63.50 kg, 157.48 cm) bp MDM: 16:11 Patient medically screened. wa 17:47 Differential diagnosis: crohn's flare? r/o obstruction. tx 19:35 Data reviewed: vital signs, nurses notes. tx 19:36 Test interpretation: by ED physician or midlevel provider: moderate to severe tx inflammatory changes noted at the ileocolic anastomosis in the RLQ. no obstruction or perforation. Response to treatment: the patient's symptoms have markedly improved after treatment. Physician consultation: Marv Allen MD accepted to consult on pt. 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 . 10/15 16:26 Order name: Basic Metabolic Panel tx 10/15 16:26 Order name: CBC with Diff tx 10/15 16:26 Order name: Creatinine for Radiology; Complete Time: 18:02 tx 10/15 16:26 Order name: Hepatic Function; Complete Time: 18:02 tx 10/15 16:26 Order name: Lipase; Complete Time: 18:02 tx 10/15 16:26 Order name: Urine Microscopic Only tx 10/15 16:27 Order name: Basic Metabolic Panel; Complete Time: 18:02 [facility] 10/15 16:27 Order name: CBC with Automated Diff; Complete Time: 18:02 [facility] 10/15 16:28 Order name: CT Abd/Pelvis - PO and IV Contrast; Complete Time: 18:46 tx 10/15 19:15 Order name: Urine Dipstick--Ancillary (enter results); Complete Time: 19:35 [facility] 10/15 16:26 Order name: IV Saline Lock; Complete Time: 16:38 tx 10/15 16:26 Order name: Labs collected and sent; Complete Time: 16:38 tx 10/15 16:26 Order name: Urine Dipstick-Ancillary (obtain specimen); Complete Time: 20:14 tx 10/15 22:36 Order name: CONS Physician Consult [facility] 10/15 22:36 Order name: Clear Liquid EDAR Administered Medications: 16:40 Drug: NS 0.9% 1000 ml Route: IV; Rate: 1 bolus; Site: right forearm; hj 16:40 Drug: Zofran 4 mg Route: IVP; Site: right forearm; hj 17:43 Follow up: Response: No adverse reaction hj 16:40 Drug: Pepcid 20 mg Route: IVP; Site: right forearm; hj 17:44 Follow up: Response: No adverse reaction hj 16:40 Drug: TORadol 30 mg Route: IVP; Site: right forearm; hj 17:44 Follow up: Response: No adverse reaction; Pain is decreased hj 17:07 Drug: Flagyl 500 mg Volume: 100 ml; Route: IVPB; Rate: 200 ml/hr; Infused Over: 30 hj mins; Site: right forearm; 17:44 Drug: Zosyn 3.375 grams Route: IVPB; Infused Over: 60 mins; Site: right forearm; hj 17:56 Drug: fentaNYL (PF) 50 mcg Route: IVP; Site: right forearm; hj 18:54 Follow up: Response: No adverse reaction; Pain is decreased hj 19:50 Drug: SOLU-Medrol 125 mg Route: IVP; Site: right forearm; cc3 20:47 Follow up: Response: No adverse reaction cc3 19:55 Drug: fentaNYL (PF) 50 mcg Route: IVP; Site: right forearm; cc3 20:48 Follow up: Response: No adverse reaction; Pain is decreased; NRS 5/10 cc3 20:00 Drug: Valium 2 mg Route: IVP; Site: right forearm; cc3 20:47 Follow up: Response: No adverse reaction; Marked relief of symptoms cc3 Disposition: 10/15/18 19:40 Hospitalization ordered by Kraig Vallecillo for Inpatient Admission. Preliminary diagnosis are acute abdominal pain, Acute ileocolic anastomotic infalmmation, acute crohn's flare. - Bed requested for Telemetry/MedSurg (Inpatient). - Status is Inpatient Admission. cc3 - Condition is Stable. - Problem is an acute exacerbation. - Symptoms have improved. UTI on Admission? No Signatures: Dispatcher [employer] EDAR Tahir Cash RN RN hj Garcia, Cindy, RN RN Jorge L Bañuelos MD MD wa Peltier, Brian, RN RN bp Cordel, Charlene cc3 Corrections: (The following items were deleted from the chart) 23:33 19:40 Hospitalization Ordered by Kraig Vallecillo MD for Inpatient Admission. Preliminary cg diagnosis is acute abdominal pain; Acute ileocolic anastomotic infalmmation; acute crohn's flare. Bed requested for Telemetry/MedSurg (Inpatient). Status is Inpatient Admission. Condition is Stable. Problem is an acute exacerbation. Symptoms have improved. UTI on Admission? No. dominique 10/16 00:19 10/15 23:33 10/15/2018 19:40 Hospitalization Ordered by Kraig Vallecillo MD for Inpatient cc3 Admission. Preliminary diagnosis is acute abdominal pain; Acute ileocolic anastomotic infalmmation; acute crohn's flare. Bed requested for Telemetry/MedSurg (Inpatient). Status is Inpatient Admission. Condition is Stable. Problem is an acute exacerbation. Symptoms have improved. UTI on Admission? No. cg
--- NOTE | 2018-10-15 19:42 | ER ---
Nurse's Notes [facility] Name: Angela Rodriguez Age: 48 yrs Sex: Female : 1970 Arrival Date: 10/15/2018 Time: 14:50 Bed 19 Private MD: Diagnosis: acute abdominal pain;Acute ileocolic anastomotic infalmmation;acute crohn's flare Presentation: 10/15 15:09 Presenting complaint: Patient states: N/V/D abd pain that began 3 days ago .Pt believes bp this may be a Crohns flare up. Transition of care: patient was not received from another setting of care. Onset of symptoms was October 12, 2018. Risk Assessment: Do you want to hurt yourself or someone else? Patient reports no desire to harm self or others. Initial Sepsis Screen: Does the patient meet any 2 criteria? No. Patient's initial sepsis screen is negative. Does the patient have a suspected source of infection? No. Patient's initial sepsis screen is negative. Care prior to arrival: None. 15:09 Method Of Arrival: Ambulatory bp 15:09 Acuity: LIZZY 3 bp Triage Assessment: 16:40 General: Appears in no apparent distress. uncomfortable, Behavior is calm, cooperative, hj appropriate for age. Pain: Complains of pain in abdomen. 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 - Social history:: Smoking status: Patient uses tobacco products, smokes one-half pack cigarettes per day. - Ebola Screening: : Patient denies exposure to infectious person Patient denies travel to an Ebola-affected area in the 21 days before illness onset. - Family history:: not pertinent. - Hospitalizations: : No recent hospitalization is reported. Screenin:40 Abuse screen: Denies threats or abuse. Denies injuries from another. Nutritional hj screening: No deficits noted. Tuberculosis screening: No symptoms or risk factors identified. Fall Risk None identified. Assessment: 16:40 General: Appears in no apparent distress. uncomfortable, Behavior is calm, cooperative, hj appropriate for age. Pain: Complains of pain in abdomen. Neuro: Level of Consciousness is awake, alert, obeys commands, Oriented to person, place, time, situation, Appropriate for age. Cardiovascular: Capillary refill < 3 seconds Patient's skin is warm and dry. Respiratory: Airway is patent Respiratory effort is even, unlabored, Respiratory pattern is regular, symmetrical. GI: Reports lower abdominal pain. : No signs and/or symptoms were reported regarding the genitourinary system. EENT: No signs and/or symptoms were reported regarding the EENT system. Derm: No signs and/or symptoms reported regarding the dermatologic system. Musculoskeletal: No signs and/or symptoms reported regarding the musculoskeletal system. 16:50 Reassessment: Patient and/or family updated on plan of care and expected duration. Pain hj level reassessed. Patient is alert, oriented x 3, equal unlabored respirations, skin warm/dry/pink. called CT; pt finished contrast;. 17:31 Reassessment: Patient and/or family updated on plan of care and expected duration. Pain hj level reassessed. Patient is alert, oriented x 3, equal unlabored respirations, skin warm/dry/pink. awaiting results and POC;. 18:53 Reassessment: Patient and/or family updated on plan of care and expected duration. Pain hj level reassessed. Patient is alert, oriented x 3, equal unlabored respirations, skin warm/dry/pink. requested for more pain meds; MD notified; awaiting orders;. 19:15 Reassessment: Patient appears in no apparent distress at this time. Patient and/or cc3 family updated on plan of care and expected duration. Pain level reassessed. Patient is alert, oriented x 3, equal unlabored respirations, skin warm/dry/pink. Received this female patient from morning shift ANANYA Haro as a case of abdominal pain, with IV cannula gauge 22 at the right forearm saline locked. 20:44 Reassessment: Patient appears in no apparent distress at this time. Patient and/or cc3 family updated on plan of care and expected duration. Pain level reassessed. Patient is alert, oriented x 3, equal unlabored respirations, skin warm/dry/pink. 21:18 Reassessment: Patient appears in no apparent distress at this time. Patient and/or cc3 family updated on plan of care and expected duration. Pain level reassessed. Patient is alert, oriented x 3, equal unlabored respirations, skin warm/dry/pink. 22:30 Reassessment: Patient appears in no apparent distress at this time. Patient and/or cc3 family updated on plan of care and expected duration. Pain level reassessed. Patient is alert, oriented x 3, equal unlabored respirations, skin warm/dry/pink. Patient for admission, Dr. Vallecillo at bedside. 23:00 Reassessment: Patient appears in no apparent distress at this time. Patient and/or cc3 family updated on plan of care and expected duration. Pain level reassessed. Patient is alert, oriented x 3, equal unlabored respirations, skin warm/dry/pink. Patient complains of abdominal pain, Dr. Vallecillo informed and said patient can be given Toradol, PRN order in [facility]. 23:50 Reassessment: Patient appears in no apparent distress at this time. Patient and/or cc3 family updated on plan of care and expected duration. Pain level reassessed. Patient is alert, oriented x 3, equal unlabored respirations, skin warm/dry/pink. Room available in [facility], report called and handed over to ANANYA Chambers for continuity of care and management. 10/16 00:15 Reassessment: Patient appears in no apparent distress at this time. Patient and/or cc3 family updated on plan of care and expected duration. Pain level reassessed. Patient is alert, oriented x 3, equal unlabored respirations, skin warm/dry/pink. Patient left ER for admission vitally stable by wheelchair escorted by light technician Leeanne. Patient denies pain at this time. Patient states feeling better. Patient states symptoms have improved. Vital Signs: 10/15 15:11 BP 80 / 63; Pulse 89; Resp 15; Temp 98.0(TE); Pulse Ox 94% on R/A; Weight 63.5 kg; bp Height 5 ft. 2 in. (157.48 cm); Pain 10/10; 16:40 BP 113 / 82; Pulse 88; Resp 18; Pulse Ox 96% on R/A; hj 17:04 BP 106 / 71; Pulse 87; Resp 18; Pulse Ox 96% on R/A; hj 18:53 BP 115 / 78; Pulse 82; Resp 18; Pulse Ox 95% on R/A; hj 19:15 BP 127 / 93; Pulse 68; Resp 17 S; Temp 98(O); Pulse Ox 96% on R/A; Pain 9/10; cc3 20:45 BP 135 / 92; Pulse 71; Resp 15 S; Pulse Ox 98% on R/A; Pain 5/10; cc3 21:45 BP 127 / 91; Pulse 68; Resp 17 S; Pulse Ox 95% on R/A; cc3 22:30 BP 127 / 96; Pulse 71; Resp 18 S; Pulse Ox 95% on R/A; cc3 23:40 BP 107 / 83; Pulse 73; Resp 17 S; Pulse Ox 96% on R/A; cc3 15:11 Body Mass Index 25.61 (63.50 kg, 157.48 cm) bp ED Course: 14:50 Patient arrived in ED. rg4 15:10 Triage completed. bp 15:11 Arm band placed on right wrist. bp 16:08 Tahir Cash RN is Primary Nurse. hj 16:11 Jorge L Bañuelos MD is Attending Physician. wa 16:40 Patient has correct armband on for positive identification. Placed in gown. Bed in low hj position. Call light in reach. Side rails up X2. 16:40 Initial lab(s) drawn, by nh, sent to lab. Inserted saline lock: 22 gauge in right hj forearm, using aseptic technique. Blood collected. 18:18 CT Abd/Pelvis - PO and IV Contrast In Process Unspecified. EDMS 19:19 Lucretia Anderson is Primary Nurse. cc3 19:38 Rosendo Mcdonough MD is Hospitalizing Provider. wa 19:39 Kraig Vallecillo MD is Hospitalizing Provider. wa 23:50 No provider procedures requiring assistance completed. Patient admitted, IV remains in cc3 place. Administered Medications: 16:40 Drug: NS 0.9% 1000 ml Route: IV; Rate: 1 bolus; Site: right forearm; hj 16:40 Drug: Zofran 4 mg Route: IVP; Site: right forearm; hj 17:43 Follow up: Response: No adverse reaction hj 16:40 Drug: Pepcid 20 mg Route: IVP; Site: right forearm; hj 17:44 Follow up: Response: No adverse reaction hj 16:40 Drug: TORadol 30 mg Route: IVP; Site: right forearm; hj 17:44 Follow up: Response: No adverse reaction; Pain is decreased hj 17:07 Drug: Flagyl 500 mg Volume: 100 ml; Route: IVPB; Rate: 200 ml/hr; Infused Over: 30 hj mins; Site: right forearm; 17:44 Drug: Zosyn 3.375 grams Route: IVPB; Infused Over: 60 mins; Site: right forearm; hj 17:56 Drug: fentaNYL (PF) 50 mcg Route: IVP; Site: right forearm; hj 18:54 Follow up: Response: No adverse reaction; Pain is decreased hj 19:50 Drug: SOLU-Medrol 125 mg Route: IVP; Site: right forearm; cc3 20:47 Follow up: Response: No adverse reaction cc3 19:55 Drug: fentaNYL (PF) 50 mcg Route: IVP; Site: right forearm; cc3 20:48 Follow up: Response: No adverse reaction; Pain is decreased; NRS 5/10 cc3 20:00 Drug: Valium 2 mg Route: IVP; Site: right forearm; cc3 20:47 Follow up: Response: No adverse reaction; Marked relief of symptoms cc3 Intake: Outcome: 19:40 Decision to Hospitalize by Provider. id 10/16 00:15 Admitted to Med/surg accompanied by tech, via wheelchair, room 212, with chart, Report cc3 called to Adele Chambers RN Condition: stable Instructed on the need for admit, Demonstrated understanding of instructions. 00:19 Patient left the ED. cc3 Signatures: Dispatcher [employer] EDMS Tahir Cash RN RN hj Garcia, Rubi rg4 Jorge L Bañuelos MD MD wa Peltier, Brian, RN RN bp Cordel, Charlene cc3 Corrections: (The following items were deleted from the chart) 10/15 20:44 19:15 BP 127 / 93; Pulse 68bpm; Resp 17bpm; Spontaneous; Pulse Ox 96% RA; Temp 98F cc3 Oral; cc3
[2018-10-15] MEDS ORDERED: METHYLPREDNISOLONE 125 MG INJ ONE (19:56)
[2018-10-15] MEDS ORDERED: DIAZEPAM 10 MG/2 ML INJ SYRINGE ONE (20:02)
[2018-10-15] MEDS ORDERED: ONDANSETRON 4 MG/2 ML VIAL IV PRN (22:28)
[2018-10-15] MEDS ORDERED: MORPHINE 2 MG/ML SYR IV PRN (22:30)
--- NOTE | 2018-10-15 22:40 | P.HP ---
Certification for Inpatient Patient admitted to: Inpatient With expected LOS: >2 Midnights Practitioner: I am a practitioner with admitting privileges, knowledge of patient current condition, hospital course, and medical plan of care. Services: Services provided to patient in accordance with Admission requirements found in Title 42 Section 412.3 of the Code of Federal Regulations Patient History Date of Service: 10/15/18 Reason for admission: crohn flare up History of Present Illness: Ms Rodriguez is a 48 years old woman with history of crohn's disease s/p 8 inches of colon resection, bipolar disorder, chronic pain syndrome, dilaudid pump placed, who start about 5 days ago with progressive abdominal pain. She has had nausea but no vomiting. She is also complaining of diarrhea, no blood seen. The patient also denied fever or chills. Lab work shows normal WBC count, CT abd/ pelvis shows ileitis/colitis. She is afebrile. Allergies promethazine [From Phenergan] Allergy (Verified 11/22/17 20:55) Twitching ciprofloxacin Adverse Reaction (Verified 11/22/17 20:55) Itching Home medications list reviewed: Yes Home Medications: Mesalamine 2 tab PO DAILY 11/22/17 Mirtazapine [Remeron] 30 mg PO BEDTIME 11/22/17 Pantoprazole [Protonix Tab] 40 mg PO DAILY 11/22/17 clonazePAM [Klonopin] 1 mg PO TID 11/22/17 - Past Medical/Surgical History Diabetic: No -: Crohns -: Endometriosis -: Titanium plate on right wrist a month ago -: PAin pump on RLQ -11/20/17- battery changed -: Hysterectomy - Family History Family History: Reviewed- Non-Contributory - Social History Smoking Status: Current every day smoker Counseled patient to stop smoking for: less than 10 minutes Smoking therapy provided: Yes Patient receptive to therapy: Yes Alcohol use: No CD- Drugs: No Caffeine use: Yes Place of Residence: Home Review of Systems 10-point ROS is otherwise unremarkable Physical Examination - Physical Exam General: Alert, In no apparent distress HEENT: Atraumatic, PERRLA, Mucous membr. moist/pink, EOMI, Sclerae nonicteric Neck: Supple, 2+ carotid pulse no bruit, No LAD, Without JVD or thyroid abnormality Respiratory: Clear to auscultation bilaterally, Normal air movement Cardiovascular: Regular rate/rhythm, Normal S1 S2 Gastrointestinal: Normal bowel sounds, Tenderness Musculoskeletal: No tenderness Integumentary: No rashes Neurological: Normal gait, Normal speech, Normal strength at 5/5 x4 extr, Normal tone, Normal affect Lymphatics: No axilla or inguinal lymphadenopathy - Studies Laboratory Data (last 24 hrs) 10/15/18 16:40: Creatinine 0.72 10/15/18 16:40: WBC 7.3, Hgb 13.3, Hct 40.4, Plt Count 319 10/15/18 16:40: Sodium 141, Potassium 3.8, BUN 8, Creatinine 0.73, Glucose 89, Total Bilirubin 0.3, AST 19, ALT 16, Alkaline Phosphatase 102, Lipase 96 Assessment and Plan - Problems (Diagnosis) (1) Bipolar 1 disorder Current Visit: Yes Status: Acute (2) Chronic pain syndrome Current Visit: Yes Status: Acute (3) Crohns disease Onset Date: 11/23/17 Current Visit: No Status: Chronic Qualifiers: Gastrointestinal tract location: small and large intestine Digestive disease complication type: without complication Qualified Code(s): K50.80 - Crohn's disease of both small and large intestine without complications - Plan Will admit the patient and start IV steroids, empiric antibiotics, consult Dr Allen. - Advance Directives Does patient have a Living Will: No Does patient have a Durable POA for Healthcare: No - Code Status/Comfort Care Code Status Assessed: Yes Code Status: Full Code
[2018-10-15] MEDS: KETOROLAC 30 MG/ML INJ IV PRN (23:10)
[2018-10-16] MEDS: METHYLPREDNISOLONE 125 MG INJ IV SCH ×3 (00:43→12:00)
[2018-10-16] MEDS: NA CHLORIDE 0.9% 1,000 ML IV SCH ×2 (00:43→09:00)
[2018-10-16] MEDS: TRAMADOL HCL 50 MG TAB PO PRN ×2 (00:44→06:47)
[2018-10-16 01:03] VITALS: BMI 26.3
[2018-10-16] MEDS: PIPER/TAZO/NS 3.375gm 3.375 GM/100 ML BAG IVPB SCH ×2 (01:56→06:00)
[2018-10-16] MEDS ORDERED: PIPERACIL/TAZO 3.375 GM VIAL IV ONE (02:00)
[2018-10-16] MEDS ORDERED: NA CHLORIDE 0.9% 100 ML ONE ×2 (02:03→05:51)
[2018-10-16 03:31] VITALS: O2SAT 94
[2018-10-16] MEDS: KETOROLAC 30 MG/ML INJ IV PRN (04:43)
[2018-10-16 05:54] LABS: Absolute Lymphocytes (CBC) 0.7 K/uL (0.7-4.9); Basophils % 0.3 % (0-1.3); Hematocrit 39.2 % (36.0-45.0); Lymphocytes % 20.7 % (15.3-44.8); MPV 7.1 fL (7.6-11.3); RBC Red Blood Cell Count 4.27 M/uL (3.86-4.86)
[2018-10-16 06:15] LABS: Magnesium 1.9 mg/dL (1.8-2.4); Potassium 3.6 mmol/L (3.5-5.1)
[2018-10-16 08:49] VITALS: BP 172/90; TEMP 97.1
[2018-10-16] MEDS ORDERED: POTASSIUM CL SA 10 MEQ TAB PO ONE (09:00)
[2018-10-16] MEDS ORDERED: NICOTINE 14 MG/PAT TD SCH (09:00)
[2018-10-16] MEDS ORDERED: predniSONE 20 MG TAB PO SCH (12:10)
--- NOTE | 2018-10-16 12:11 | P.SSS ---
Patient History Date of Service: 10/16/18 Reason for admission: crohn flare up History of Present Illness: Ms Rodriguez is a 48 years old woman with history of crohn's disease s/p 8 inches of colon resection, bipolar disorder, chronic pain syndrome, dilaudid pump placed, who start about 5 days ago with progressive abdominal pain. She has had nausea but no vomiting. She is also complaining of diarrhea, no blood seen. The patient also denied fever or chills. Lab work shows normal WBC count, CT abd/ pelvis shows ileitis/colitis. She is afebrile. Allergies promethazine [From Phenergan] Allergy (Verified 11/22/17 20:55) Twitching ciprofloxacin Adverse Reaction (Verified 11/22/17 20:55) Itching Home Medications: Escitalopram Oxalate [Lexapro] 10 mg PO DAILY 10/16/18 Pantoprazole [Protonix Tab*] 40 mg PO BID 10/16/18 Prednisone [Deltasone] 20 mg PO BID #10 tablet 10/16/18 clonazePAM [Klonopin*] 1 mg PO QID PRN 10/16/18 - Past Medical/Surgical History Has patient received pneumonia vaccine in the past: Yes Diabetic: No -: Crohns -: Endometriosis -: Titanium plate on right wrist a month ago -: PAin pump on RLQ -11/20/17- battery changed -: Hysterectomy - Family History Family History: Reviewed- Non-Contributory - Social History Smoking Status: Current every day smoker Alcohol use: No CD- Drugs: No Caffeine use: Yes Place of Residence: Home Review of Systems 10-point ROS is otherwise unremarkable Physical Examination - Vital Signs Temperature: 97.1 F Blood Pressure: 172/90 Pulse: 67 Respirations: 18 Pulse Ox (%): 90 - Physical Exam General: Alert, In no apparent distress HEENT: Atraumatic, PERRLA, Mucous membr. moist/pink, EOMI, Sclerae nonicteric Neck: Supple, 2+ carotid pulse no bruit, No LAD, Without JVD or thyroid abnormality Respiratory: Clear to auscultation bilaterally, Normal air movement Cardiovascular: Regular rate/rhythm, Normal S1 S2 Gastrointestinal: Normal bowel sounds, No tenderness Musculoskeletal: No tenderness Integumentary: No rashes Neurological: Normal gait, Normal speech, Normal strength at 5/5 x4 extr, Normal tone, Normal affect Lymphatics: No axilla or inguinal lymphadenopathy - Studies Laboratory Data (last 24 hrs) 10/15/18 16:40: Creatinine 0.72 10/15/18 16:40: WBC 7.3, Hgb 13.3, Hct 40.4, Plt Count 319 10/15/18 16:40: Sodium 141, Potassium 3.8, BUN 8, Creatinine 0.73, Glucose 89, Total Bilirubin 0.3, AST 19, ALT 16, Alkaline Phosphatase 102, Lipase 96 - Diagnosis (Problem(s)) (1) Crohns disease Onset Date: 11/23/17 Current Visit: No Status: Resolved Qualifiers: Gastrointestinal tract location: small and large intestine Digestive disease complication type: without complication Qualified Code(s): K50.80 - Crohn's disease of both small and large intestine without complications (2) Bipolar 1 disorder Current Visit: Yes Status: Acute - Disposition Disposition: ROUTINE DISCHARGE Condition: GOOD Diet: Regular Activity: Ad ankit
[2018-10-16] MEDS ORDERED: PIPER/TAZO/NS 3.375gm 3.375 GM/100 ML BAG IVPB SCH (17:00)
--- NOTE | 2018-10-16 20:55 | CON ---
Reason For Consultation: Crohn's flare. History Of Presenting Illness: The patient is a 48-year-old woman with history of Crohn disease. Sh franklin is status post intestine resection at [facility] this year. She has tried Remicade before a nd was on Stelara, and she was getting Stelara every 4 weeks because her disease was not in control; however, she came to the ER with complaints of abdominal pain. Imaging revealed thickening of the il eocolonic anastomosis, consistent with Crohn's flare. She was admitted. When I saw the patient, she seemed to be doing much better. She has received antibiotics as well as steroids. Allergies: PROMETHAZINE AND CIPRO. Home Medications: As in the chart. Past Medical History: Crohn's, endometriosis. Past Surgical History: Right hip surgery, pain pump in the right lower quadrant, hysterectomy. Family History: Noncontributory. Social History: Smoker. Laboratory Data: Reviewed, and there is no acute abnormality. Physical Examination: HEENT: Head is atraumatic and normocephalic. Pupils are equally reactive. Neck: Supple. Chest: Clear to auscultation bilaterally. Abdomen: Soft. Bowel sounds are present. Extremities: No pedal edema. RELAY CHECKER: Alert and oriented x3. CVS: S1, S2 plus. Impression: A 48-year-old woman with Crohn disease, status post surgery, partial bowel resection and ileocolonic anastomosis, now presents with inflammation at this site, may be related to Crohn's. Plan: We will continue current management. The patient can be discharged as she is feeling better. Follow up in the GI Clinic as outpatient. May need to switch over her Stelara to Entyvio or any oth er biologic that has not been tried. Additionally, we would also think about adding Imuran to her re gimen. US/MODL Voice ID: [id number] Report ID: [id number]
[2018-10-17] MEDS ORDERED: ESCITALOPRAM 20 MG TAB PO SCH (09:00)
== END 2018-10-16 16:45 | disposition home or self-care (01) ==
LOC: ER 14:48 → INTOOBSV 22:22 → ERHOLD 22:22 → 2ND 23:59
PROVIDERS: ADMIT Internal Medicine; ATTEND Internal Medicine
DX: K50.80 Crohn's disease of both small and large intestine without complications (principal); F31.9 Bipolar disorder, unspecified; G89.4 Chronic pain syndrome; F17.210 Nicotine dependence, cigarettes, uncomplicated
CPT/HCPCS: 85025 ×2; 80048 ×2; 36415; 83735; 80076; 87493; 83690; 74177; 96375; 96374; 99285; Q9967; J2543 ×2; J3360; J3010 ×2; J7030 ×2; J2930 ×3; J2405; G0378 ×2; 81003; 81015; J7512

== ENCOUNTER 2018-11-06 17:07 | Emergency (ER) | payer OTHER ==
--- OUTSIDE RECORDS SUMMARY | 2018-11-06 17:09 | XMS REPORT | Clinical Summary ---
:1970 Author Organization [facility] Address [address] [place] [id number] Care Team Providers Name Role Phone Eryn [...] INFLUENZA VACCINE 11/29/2018 Implants Implanted Type Area Reservoir Caretaker Device Identifier Shelf Expiration Model / Date Serial / Lot Pain Pump-07/18/2009 Implanted: 07/18/2009 (Quantity not on file) Results Not on fileafter 11/05/2017 Insurance Payer Benefit Plan / Subscriber ID Effective Dates Phone Address Type Group MEDICARE MEDICARE PART A xxxxxxxxxx 2005-Present [place], [place] Medicare AND B MEDICAID MEDICAID xxxxxxxxx 2017-Present Medicaid
--- OUTSIDE RECORDS SUMMARY | 2018-11-06 17:10 | XMS REPORT | Clinical Summary ---
:1970 Author Organization [facility] Address [address] [place] [address] Care Team Providers Name Role Phone Mychal [...] 10 MG days the 01 17 tablet 56-84-04-20-15-10- 5mg each for 3 days and then [...] or gangrene (Primary Dx) 09/04/2018 Hospital Radiology Karina, Crohn's disease of both small and large intestine with other complication (HCC); Encounter Cristela Medrano NP Intestinal malabsorption, unspecified type; Heavy smoker; History of steroid therapy; Encounter for imaging to assess osteopenia 09/04/2018 Outside Orders Central Scheduling [place], Crohn's disease of both small and large intestine with other complication (HCC) (Primary Dx); Cristela Medrano NP Intestinal malabsorption, unspecified type; Heavy smoker; History of steroid therapy; Encounter for imaging to assess osteopenia 08/22/2018 Orders Only General Internal Medicine 08/21/2018 Travel 08/20/2018 Anesthesia Event Vj Campbell MD 08/20/2018 Surgery Sanchez, Jani, LAPAROSCOPY,COLECTOMY MD RIGHT 08/20/2018 [facility] Internal [facility], Jani, Crohn's disease of - Encounter Medicine 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, Crohn's disease with Encounter MD intestinal 1, [facility] obstruction, [address] Room unspecified gastrointestinal tract location (HCC) 08/07/2018 [facility] Magnetic Resonance [facility], Crohn's disease with Encounter Imaging MD intestinal 1.5, [facility] obstruction, Jase Mr unspecified gastrointestinal tract location (HCC) 08/07/2018 Hospital Magnetic Resonance System, Crohn's disease with Encounter Imaging Provider Not intestinal In obstruction, 1.5, [facility] unspecified Jase Mr gastrointestinal tract location (HCC) 08/06/2018 Outside Orders Central Scheduling [facility], Crohn's disease with MD intestinal obstruction, unspecified gastrointestinal tract location (HCC) (Primary Dx) 07/22/2018 Travel 07/20/2018 [facility] Internal Ferreira, Bilateral lower abdominal pain (Primary Dx); - Encounter Medicine Santiago Banks MD Nausea and vomiting in adult patient; 07/23/2018 Doris, Crohn's disease of small and large intestines with complication (HCC); Khushbu History of bowel resection; MD Karishma Tobacco abuse; Joana Ramirez Oral candidiasis; MD Laney Uncontrolled pain; All Johnson, Crohn's disease of small intestine with intestinal obstruction (HCC) 07/11/2018 Anesthesia Event Gastroenterology Terri Laughlin MD 07/11/2018 Surgery Gastroenterology Lino, COLONOSCOPY,BIOPSY King Merchant MD 07/10/2018 Travel 07/06/2018 [facility] Internal Shamsee, SBO (small bowel obstruction ) (HCC); - Encounter Medicine Esa-Juan Crohn's disease of both small and large intestine with other complication (HCC); 07/11/2018 Donny, Smoker; Endometriosis; Richieunzonia, Crohn's disease of small intestine with intestinal obstruction (HCC); MD Colby Other chronic pain Daxa aCballero MD Waheed, Umar, MD after 11/05/2017 Family History Medical History Relation Name Comments [...] Inhaled Oxygen Concentration 21% 07/06/2018 10:00 PM JUICE SCALEMAN Weight 69 kg (152 lb 1.9 oz) [...] 314 ms QTC Calculation(Bazett) 449 ms P [place] 37 degrees R [place] 67 degrees T [place] 30 degrees Sinus tachycardia Otherwise normal ECG [...] 07/07/2018 3:30 Results for AUTO DIFFERENTIAL AM JUICE SCALEMAN this procedure are in the results section. BASIC METABOLIC Routine 07/07/2018 3:30 Results for PANEL (7) AM JUICE SCALEMAN this procedure are in the results section. CBC W/PLT COUNT & Routine 07/07/2018 3:30 Results for AUTO DIFFERENTIAL AM JUICE SCALEMAN this procedure are in the results section. STOOL PATH CHARGE Routine 07/06/2018 6:29 Results for PM JUICE SCALEMAN this procedure are in the results section. SHIGA TOXIN SCREEN Routine 07/06/2018 6:29 Results for PM JUICE SCALEMAN this procedure are in the results section. STOOL CULTURE + Routine 07/06/2018 6:29 Results for SHIGA TOXIN PM JUICE SCALEMAN this procedure are in the results section. C. DIFFICILE GDH Routine 07/06/2018 6:28 Results for TOXIN PM JUICE SCALEMAN this procedure are in the results section. XR CHEST 1 VIEW Routine 07/06/2018 1:20 Results for PORTABLE/BEDSIDE PM JUICE SCALEMAN this procedure are in the results section. BLOOD CULTURE STAT 07/06/2018 11:14 Results for AM JUICE SCALEMAN this procedure are in the results section. LACTIC ACID, VENOUS Routine 07/06/2018 11:13 Results for AM JUICE SCALEMAN this procedure are in the results section. BLOOD CULTURE STAT 07/06/2018 10:50 Results for AM JUICE SCALEMAN this procedure are in the results section. CBC W/PLT COUNT & Routine 07/06/2018 10:49 Results for AUTO DIFFERENTIAL AM JUICE SCALEMAN this procedure are in the results section. PHOSPHORUS Routine 07/06/2018 10:49 Results for AM JUICE SCALEMAN this procedure are in the results section. MAGNESIUM Routine 07/06/2018 10:49 Results for AM JUICE SCALEMAN this procedure are in the results section. HEPATIC FUNCTION Routine 07/06/2018 10:49 Results for PANEL AM JUICE SCALEMAN this procedure are in the results section. BASIC METABOLIC Routine 07/06/2018 10:49 Results for PANEL (7) AM JUICE SCALEMAN this procedure are in the results section. CBC W/PLT COUNT & Routine 07/06/2018 10:49 Results for AUTO DIFFERENTIAL AM JUICE SCALEMAN this procedure are in the results section. RAPID DRUG SCREEN, STAT 07/06/2018 10:14 Results for URINE AM JUICE SCALEMAN this procedure are in the results section. URINALYSIS W/ REFLEX Routine 07/06/2018 10:14 Results for URINE CULTURE AM JUICE SCALEMAN this procedure are in the results section. after 11/05/[address] Abdomen/Pelvis with IV Contrast (09/18/2018 4:13 PM CDT)Only the most recent of2 resultswithin the time period is included. Specimen Narrative Performed At FINAL REPORT [facility] CT Abdomen And Pelvis with Intravenous Contrast [...] 09:48:51 Performing Organization Address City/State/Zipcode Phone Number [facility] XR DXA Bone Density Study (09/04/2018 1:20 PM CDT) Specimen Narrative Performed At FINAL REPORT [facility] Exam: Bone mineral density study. History:Osteopenia. Comparison:None [...] for bone mineral density as provided by forms designer is 0.023 g/cm2 for lumbar spine and [...] for bone mineral density as provided by forms designer is 0.023 g/cm2 for lumbar spine and [...] included. WBC 5.5 3.5 - 10.5 K/L [facility] RBC 3.31 (L) 3.93 - 5.22 M/L [facility] Hemoglobin 10.4 (L) 11.2 - 15.7 GM/DL [facility] Hematocrit 34.9 34.1 - 44.9 % [facility] MCV 105.4 (H) 79.4 - 94.8 fL [facility] MCH 31.4 25.6 - 32.2 pg [facility] MCHC 29.8 (L) 32.2 - 35.5 GM/DL [facility] RDW 15.4 (H) 11.7 - 14.4 % [facility] Platelets 185 150 - 450 K/CU MM [facility] MPV 8.9 (L) 9.4 - 12.3 fL [facility] nRBC 0 0 - 0 /100 WBC [facility] Specimen Blood Performing Organization Address City/[facility]/Zipcode Phone Number [facility] [address] [place] [address] CENTER Phosphorus (08/23/2018 6:05 AM CDT)Only the most recent of6 resultswithin the time period is included. Phosphorus 2.9 2.3 - 4.7 mg/dL [facility] Specimen Blood Performing Organization Address City/[facility]/Zipcode Phone Number [facility] [address] [place] [address] CENTER Magnesium (08/23/2018 6:05 AM CDT)Only the most recent of6 resultswithin the time period is included. Magnesium 1.9 1.6 - 2.6 mg/dL [facility] Specimen Blood Performing Organization Address City/[facility]/Zipcode Phone Number [place] [address] [phone] [place] [address] [facility] Basic Metabolic Panel (08/23/2018 6:05 AM CDT)Only the most recent of11 resultswithin the time period is included. Sodium 139 136 - 145 meq/L [facility] Potassium 4.0 3.5 - 5.1 meq/L [facility] Chloride 108 (H) 98 - 107 meq/L [facility] CO2 26 22 - 29 meq/L [facility] BUN 6 (L) 7 - 21 mg/dL [facility] Creatinine 0.68 0.57 - 1.25 mg/dL [facility] Glucose 87 70 - 105 mg/dL [facility] Calcium 8.5 8.4 - 10.2 mg/dL [facility] EGFR 93Comment: ESTIMATED GFR IS mL/min/1.73 sq m [facility] NOT ACCURATE CREATININE [facility] CENTER CLEARANCE IN PREDICTING GLOMERULAR FILTRATION RATE. ESTIMATED GFR IS NOT APPLICABLE FOR DIALYSIS PATIENTS. Specimen Blood Performing Organization Address City/[facility]/Zipcode Phone Number [place] [address] [phone] [place] [address] [facility] ECG 12 lead (08/22/2018 6:33 AM CDT) Specimen Narrative Performed At Ventricular Rate 123 BPM GE MUSE Atrial Rate 123 BPM P-R Interval 120 ms QRS Duration 84 ms Q-T Interval 314 ms QTC Calculation(Bazett) 449 ms P [place] 37 degrees R [place] 67 degrees T [place] 30 degrees Sinus tachycardia Otherwise normal ECG No previous ECGs available Confirmed by Sg Moore ([id number]) on 08/23/2018 11:22:03 AM Procedure Note Interface, External Ris In - 08/23/2018 11:22 AM CDT Ventricular Rate 123 BPM Atrial Rate 123 BPM P-R Interval 120 ms QRS Duration 84 ms Q-T Interval 314 ms QTC Calculation(Bazett) 449 ms P [place] 37 degrees R [place] 67 degrees T [place] 30 degrees Sinus tachycardia Otherwise normal ECG No previous ECGs available Confirmed by Sg Moore ([id number]) on 08/23/2018 11:22:03 AM Performing Organization Address City/State/Zipcode Phone Number [employer] TRANSFUSION SERVICE REPORT - SCAN (08/21/2018 6:11 PM CDT)Only the most recent of2 resultswithin the time period is included. Narrative Performed At POC-Glucose meter (08/20/2018 11:35 AM CDT)Only the most recent of7 resultswithin the time period is included. POC-Glucose Meter 129 (H)Comment: TESTED AT 70 - 110 mg/dL [address] [address] Specimen Blood Performing Organization Address [facility] Phone Number [address] [address] [phone] CENTER Tissue Exam (08/20/2018 10:03 AM CDT)Only the most recent of2 resultswithin the time period is included. Case Report Surgical Pathology Report Case: [id number] [facility] Authorizing Provider:Jani Sanchez MDCollected: 08/20/2018 1003 [facility] Ordering Location: [facility] PERIOPERATIVE Received: 08/20/2018 1118 SERVICES Pathologist: Linda Mullen MD Specimen:Large Intestine, Colon - Right/Ascending, RIGHT COLON AND SMALL BOWEL DIAGNOSIS A. COLON, RIGHT/ASCENDING, RIGHT HEMICOLECTOMY: [facility] - CHRONIC ACTIVE ENTERITIS COMPATIBLE WITH CROHN'S DISEASE (SEE COMMENT) [facility] - NEGATIVE FOR GRANULOMAS (OR) VIRAL CYTOPATHIC CHANGES - NEGATIVE FOR DYSPLASIA (OR) MALIGNANCY - MARGINS, UNREMARKABLE Signing Pathologist Direct Phone Line: [phone] COMMENT Per Epic, patient's history of Crohn's disease s/p ileocecal anastomosis (2006) and recent admission with Crohn's flare treatment with IV steroidswith persistent symptoms is noted. [facility] Histologic features are compatible with chronic inflammatory bowel disease. Features including small bowel involvement, areas of submucosal fibrosis ( stricture), fat stranding, and transmural lymphoid a ggregate underneath non-ulcerated areas are in favor of Crohn's disease. No granulomas (or) viral cytopathic changes are seen. IDC: Dr. Leslie Carballo concurs. CPT Code(s) 24590 [facility] CLINICAL HISTORY Crohn's disease of small [facility] intestine without [facility] complication SPECIMEN SOURCE Right colon and small bowel [facility] GROSS DESCRIPTION A. Received fresh labeled "large intestine, colon-right/ ascending" is a 39 cm in length and up to 3 cm in diameter segment of unoriented bowel with a moderate amount of attached fat. The serosa is rodriguez-p [facility] ink and smooth with scattered adhesions. The segment of bowel is closed off by two linear staple lines. Opening the segment of bowel reveals a 5 cm long anastomotic site that is 9 [address] nearest [facility] rgin (inked black). There is a [...] folding and no masses or lesions identified. Department Chair sections are submitted in 10 cassettes as follows. Ink code: Blue-one margin Black-margin closest to anastomotic site Section code: A1 - eligibility services representative sections of both margins, differentially inked per the ink code A2-A5 - entire sections of ulcerative area A6 - entire sections of hemorrhagic mucosal area A7-A10 - eligibility services representative sections of mucosa FR/ew MICROSCOPIC DESCRIPTION Performed. [facility] Specimen Tissue Performing Organization Address City/State/Zipcode Phone Number [facility] [address] [place] [address] [phone] CENTER ANESTHESIA SPINAL BLOCK (08/20/2018 8:20 AM CDT) Narrative Performed At Marta Parson MD 08/27/2018 12:18 PM Spinal Block Patient location during procedure: OR Start time: 08/20/2018 8:12 AM End time: 08/20/2018 8:18 AM Procedure Indication: procedure for pain, at surgeon's request and post-op pain management Staffing Anesthesiologist: Marta Parson MD Resident/TUNGSTEN REFINER: Abdias Worthington Preanesthetic Checklist Completed: patient identified, [...] pain management Staffing Anesthesiologist: Marta Parson MD Resident/TUNGSTEN REFINER: Abdias Worthington Preanesthetic Checklist Completed: patient identified, [...] is included. ABO/RH AUTOMATED (BEAKER) A POSITIVE [facility] Ab Scrn NEGATIVE [facility] Specimen Blood Performing Organization Address [facility] Phone Number [address] [address] Hepatic function panel (07/23/2018 4:50 AM CDT)Only the most recent of3 resultswithin the time period is included. Protein, Total 6.3 6.0 - 8.3 gm/dL [facility] Albumin 3.9 3.5 - 5.0 g/dL [facility] Total Bilirubin 0.3 0.2 - 1.2 mg/dL [facility] Bilirubin, Direct 0.1 0.1 - 0.5 mg/dL [facility] Alkaline Phosphatase 68 40 - 150 U/L [facility] AST 23 5 - 34 U/L [facility] ALT 41 6 - 55 U/L [facility] Specimen Blood Performing Organization Address [facility] Phone Number [address] [address] CENTER C-Reactive Protein (07/22/2018 4:44 AM CDT) CRP 0.22 0.00 - 0.50 mg/dL [facility] Specimen Blood Performing Organization Address City/State/Zipcode Phone Number [facility] [address] [place] [address] CENTER CBC with platelet count + automated diff (07/22/2018 4:44 AM CDT)Only the most recent of8 resultswithin the time period is included. WBC 8.2 3.5 - 10.5 K/L [facility] RBC 4.02 3.93 - 5.22 M/L [facility] Hemoglobin 12.5 11.2 - 15.7 GM/DL [facility] Hematocrit 39.7 34.1 - 44.9 % [facility] MCV 98.8 (H) 79.4 - 94.8 fL [facility] MCH 31.1 25.6 - 32.2 pg [facility] MCHC 31.5 (L) 32.2 - 35.5 GM/DL [facility] RDW 14.8 (H) 11.7 - 14.4 % [facility] Platelets 322 150 - 450 K/CU MM [facility] MPV 8.6 (L) 9.4 - 12.3 fL [facility] nRBC 0 0 - 0 /100 WBC [facility] % Neutros 83 % [facility] % Lymphs 14 % [facility] % Monos 2 % [facility] % Eos 0 % [facility] % Baso 0 % [facility] # Neutros 6.83 (H) 1.56 - 6.13 K/L [facility] # Lymphs 1.16 (L) 1.18 - 3.74 K/L [facility] # Monos 0.16 (L) 0.24 - 0.36 K/L [facility] # Eos 0.00 (L) 0.04 - 0.36 K/L [facility] # Baso 0.01 0.01 - 0.08 K/L [facility] Immature Granulocytes-Relative 1 0 - 1 % [facility] Specimen Blood Performing Organization Address City/[facility] Phone Number [address] [address] [place] Prealbumin (07/22/2018 4:44 AM CDT) Prealbumin 36 14 - 45 mg/dL [facility] Specimen Blood Performing Organization Address City/[facility] Phone Number [address] [address] [phone] [facility] STOOL PATH CHARGE (07/21/2018 1:04 PM CDT)Only the most recent of2 resultswithin the time period is included. Pathogen exam charged Done [facility] Specimen Stool Performing Organization Address City/[facility] Phone Number [address] [address] [place] Shiga Toxin Screen (07/21/2018 1:04 PM CDT)Only the most recent of2 resultswithin the time period is included. Shiga toxin 1 Not detected Not detected [facility] Shiga toxin 2 Not detected Not detected [facility] Specimen Stool Performing Organization Address [facility] Phone Number [address] [address] [place] Stool culture + Shiga toxin (07/21/2018 1:04 PM CDT)Only the most recent of2 resultswithin the time period is included. Result No Salmonella, Shigella or [facility] Campylobacter isolated [facility] Specimen Stool Performing Organization Address City/[facility]/Zipcode Phone Number [facility] [address], [place] [address] [phone] [place] Clostridium difficile [facility] Toxin (07/21/2018 1:03 PM CDT)Only the most recent of2 resultswithin the time period is included. C. Difficle Toxin Negative Negative [facility] C. Difficile [facility] Antigen NegativeComment: No Negative [facility] indication of Clostridium [facility] difficile infection and no colonization. Discontinue enteric isolation and therapy. Specimen Stool Narrative Performed At Testing performed by [employer] Rapid Cassette [facility] Assay.For [facility], published sensitivity of the assay is 98.7% compared to cytotoxicity testing.For Toxin AB, published sensitivity is 87.8% and specificity 99.4% compared to cytotoxicity testing. Verification of kit performance was done by the [facility] Microbiology Lab prior to clinical use. Performing Organization Address [facility] Phone Number [place] [address] [phone] [place] [address] [place] [address] abdomen pelvis without contrast (07/21/2018 3:48 AM CDT) Specimen Narrative Performed At FINAL REPORT [facility] CLINICAL HISTORY: Acute abdominal pain, history of [...] MD Report Verified Date/Time:07/21/2018 04:05:05 Reading Location: [address] Reading Room Procedure Note Interface, External [...] Report Verified Date/Time: 07/21/2018 04:05:05 Reading Location: [address] Reading Room Performing Organization Address City/State/Zipcode Phone Number [facility] POCT , urine (07/20/2018 10:51 PM CDT) Test Urine, POC Negative Control line present?, POC Yes Background clear?, POC No=Invalid Patient Result UPT Cassette Lot #, POC [id number] UPT Cassette Expiration Date, POC 11/29/2019 Specimen Urine ABORH, manual (07/20/2018 10:48 PM CDT) ABO Grouping A [facility] Rh Factor POS [facility] Specimen Blood Performing Organization Address [facility] Phone Number [address] [address] [phone] PTT (aPTT) (07/20/2018 9:32 PM CDT) PTT 24.6 22.5 - 36.0 seconds [facility] Specimen Blood Performing Organization Address [facility] Phone Number [address] [address] [phone] CENTER PT/INR (07/20/2018 9:32 PM CDT) Protime 13.2 11.7 - 14.7 seconds [facility] INR 1.0 <=5.9 [facility] Specimen Blood Narrative Performed At RECOMMENDED COUMADIN/WARFARIN INR THERAPY [facility] RANGES STANDARD DOSE: 2.0 - 3.0 Includes: PROPHYLAXIS for venous thrombosis, systemic embolization; TREATMENT for venous thrombosis and/or pulmonary embolus. HIGH RISK: Target INR is 2.5-3.5 for patients with mechanical heart valves. Performing Organization Address [facility] Phone Number [address] [address] [phone] CENTER Lipase (07/20/2018 9:32 PM CDT) Lipase 12 8 - 78 U/L [facility] Specimen Blood Performing Organization Address [facility] Phone Number [address] [address] CENTER Comprehensive metabolic panel (07/20/2018 9:32 PM CDT) Protein, Total 5.6 (L) 6.0 - 8.3 gm/dL [facility] Albumin 3.5 3.5 - 5.0 g/dL [facility] Alkaline Phosphatase 54 40 - 150 U/L [facility] Total Bilirubin 0.2 0.2 - 1.2 mg/dL [facility] Sodium 143 136 - 145 meq/L [facility] Potassium 3.9 3.5 - 5.1 meq/L [facility] Chloride 106 98 - 107 meq/L [facility] CO2 27 22 - 29 meq/L [facility] BUN 12 7 - 21 mg/dL [facility] Creatinine 0.76 0.57 - 1.25 mg/dL [facility] Glucose 84 70 - 105 mg/dL [facility] Calcium 8.5 8.4 - 10.2 mg/dL [facility] AST 13 5 - 34 U/L [facility] ALT 27 6 - 55 U/L [facility] EGFR 82Comment: ESTIMATED GFR mL/min/1.[address] [facility] IS NOT ACCURATE [facility] CREATININE CLEARANCE IN PREDICTING GLOMERULAR FILTRATION RATE. ESTIMATED GFR IS NOT APPLICABLE FOR DIALYSIS PATIENTS. Specimen Blood Performing Organization Address City/State/Zipcode Phone Number [facility] [address] [place] [address] CENTER REPORT OF PROCEDURE - ENDOSCOPY URL (07/11/2018 9:45 AM CDT) Narrative Performed At CT abdomen & pelvis - enterography (07/08/2018 6:32 AM CDT) Specimen Narrative Performed At FINAL REPORT [facility] INDICATION: Abdominal pain and history of Crohn's [...] MD Report Verified Date/Time:07/08/2018 14:17:31 Reading Location: [address] Consult Reading Room Procedure Note Interface, [...] Report Verified Date/Time: 07/08/2018 14:17:31 Reading Location: [facility] [id number] Ortho Consult Reading Room Performing Organization Address City/State/Zipcode Phone Number [facility] XR chest 1 view portable / bedside (07/06/2018 1:20 PM JUICE SCALEMAN) Specimen Narrative Performed At FINAL REPORT [facility] TECHNIQUE: Frontal chest radiograph dated 07/06/2018. CLINICAL HISTORY: Fever COMPARISON STUDY: None IMPRESSION: Lungs are clear. No pleural effusion or pneumothorax. Cardiomediastinal silhouette is normal in size. No pulmonary edema. No fracture. Signed: Xiao Mckinney MD Report Verified Date/Time:07/06/2018 14:21:04 Reading Location: [facility] Radiology Reading Room Procedure Note Interface, External Ris In - 07/06/2018 2:23 PM JUICE SCALEMAN FINAL REPORT TECHNIQUE: Frontal chest radiograph dated 07/06/2018. CLINICAL HISTORY: Fever COMPARISON STUDY: None IMPRESSION: Lungs are clear. No pleural effusion or pneumothorax. Cardiomediastinal silhouette is normal in size. No pulmonary edema. No fracture. Signed: Xiao Mckinney MD Report Verified Date/Time: 07/06/2018 14:21:04 Reading Location: [facility] Radiology Reading Room Performing Organization Address City/[facility] Phone Number RIS Blood culture (07/06/2018 11:14 AM JUICE SCALEMAN)Only the most recent of2 resultswithin the time period is included. Result No growth in 5 days [facility] Specimen Blood Performing Organization Address [facility] Phone Number [address] [address] C[place] Lactic acid, venous, whole blood (07/06/2018 11:13 AM JUICE SCALEMAN) Lactate, Venous 0.8Comment: Specimen 0.5 - 2.2 mmol/L [facility] moderately hemolyzed [facility] Specimen Blood Performing Organization Address [facility] Phone Number [address] [address] CENTER Urinalysis w/Microscopic + Reflex to Culture (07/06/2018 10:14 AM JUICE SCALEMAN) Color, UA Light Yellow [facility] Clarity, UA Clear [facility] Specific Neche, UA 1.020 1.001 - 1.035 [facility] pH, UA 6.5 5.0 - 8.0 [facility] Protein, UA Negative Negative [facility] Glucose, UA Negative Negative [facility] Ketones, UA Negative Negative [facility] Bilirubin, UA Negative Negative [facility] Blood, UA Negative Negative [facility] Nitrite, UA Negative Negative [facility] Leukocytes, UA Negative Negative [facility] Urobilinogen, UA 0.2 0.2 - 1.0 mg/dL [facility] RBC, UA <1 /HPF [facility] WBC, UA 0 /HPF [facility] Squam Epithel, UA <1 /HPF [facility] Specimen Source [facility] Specimen Urine Performing Organization Address City/State/Zipcode Phone Number [facility] [address] [place] [address] [phone] [place] Rapid drug screen, urine (07/06/2018 10:14 AM JUICE SCALEMAN) Barbiturate Screen Negative Negative [facility] Benzodiazepine Screen Positive (A) Negative [facility] Cocaine (Metab.) Screen Negative Negative [facility] Methadone Screen Negative Negative [facility] Opiate Screen Positive (A) Negative [facility] Cannabinoid Screen Negative Negative [facility] Amph/Methamph Screen Negative Negative [facility] Phencyclidine Screen Negative Negative [facility] Oxycodone Screen Negative Negative [facility] Specimen Urine Narrative Performed At [facility] CONC. Cocaine 300 ng/mL Nfmkexxviif43 ng/mL Bzaxlzrvrquucz985 ng/mL Barbiturate 200 ng/mL Qshrfpembzfvr52 ng/mL Ramqaw191 ng/mL Methadone 300 ng/mL Amphetamine/ 1000 ng/mL Methamphetamine Oxycodone 300 ng/mL This assay provides an unconfirmed qualitative test result for the clinical management of patients in emergency situations. Chain of custody not maintained. Some auvf-aal-acziild medications, as well as adulterants, may cause inaccurate results. Clinical correlation should be applied. A more comprehensive drug screen or confirmation of a detected drug may be performed upon request. Performing Organization Address City/State/Zipcode Phone Number [facility] [address] [place] [address] CENTER after 11/05/2017 Insurance Payer Benefit Plan / Group Subscriber ID Type Phone Address MEDICARE MEDICARE A B xxxxxxxxxxx Medicare DIAZ MEDICAID MEDICAID DIAZ xxxxxxxxx Advance Directives For more information, please contact:[address] [phone] Code Status Date Activated Date Inactivated Comments [...]
--- OUTSIDE RECORDS SUMMARY | 2018-11-06 17:12 | XMS REPORT ---
:1970 [facility] Address [address] [place] [address] Dr. S[address] [place] [address] Care Team Providers Name Role Phone DR EDGARD CASH Unavailable Unavailable ALEJANDRO, JANI Unavailable Unavailable SANTIAGO DICKINSON Unavailable Unavailable SHAMSEE, PAPI-JOSE ALEJANDRO-AHMED Unavailable Unavailable BLAKE ALLEN - Unavailable Unavailable OEI, RADHA Unavailable Unavailable Problems This patient has no known problems. Allergies, Adverse Reactions, Alerts This patient has no known allergies or adverse reactions. Medications This patient has no known medications. Encounters Start End Encounter Admission Attending Care Care Encounter Date/Time Date/Time Type Type Clinicians Facility Department ID 2016-11-04 [facility] [id number] 09:30:00 EDGARD 2016-07-15 2016-07-19 Inpatient 1 HARSHIL ALLEN [facility] [id number] 18:47:00 10:30:00 BLAKE 2013-11-19 2013-11-19 Emergency E MOOK, [facility] [id number] 10:08:00 12:55:00 RADHA Results Test Description Test [...] is recommended to confirm stability. Signed: [facility] Verified Date/Time: 09/20/2018 09:48:51 , BONE 2018-09-04 13:22:00 Reason for FINAL REPORT PATIENT ID: DENSITY STUDY Exam:->crohn's [id number] Exam: Bone mineral disease of both density [...] for bone mineral density as provided by school psychology professor is 0.023 g/cm2 for lumbar spine and [...] Value Reference Range Comments PHOSPHORUS (BEAKER) (test tjlq=037) 2.9 mg/dL 2.3-4.7 [id number] 07:02:00 Test Item Value Reference Range Comments MAGNESIUM (BEAKER) (test imda=359) 1.9 mg/dL 1.6-2.6 BASIC METABOLIC [id number] 07:02:00 Test Item Value Reference Range Comments SODIUM (BEAKER) (test 139 meq/L 136-145 rrev=014) POTASSIUM (BEAKER) (test 4.0 meq/L 3.5-5.1 eyrs=671) CHLORIDE (BEAKER) (test 108 meq/L 98-107 ukul=030) CO2 (BEAKER) (test 26 meq/L 22-29 fooo=602) BLOOD UREA NITROGEN 6 mg/dL 7-21 (BEAKER) (test jfup=747) CREATININE (BEAKER) (test 0.68 mg/dL 0.57-1.25 mbuu=679) GLUCOSE RANDOM (BEAKER) 87 mg/dL 70-105 (test rrkm=470) CALCIUM (BEAKER) (test 8.5 mg/dL 8.4-10.2 huac=775) EGFR (BEAKER) (test 93 mL/min/1.73 sq m ESTIMATED GFR IS NOT tqpw=4172) ACCURATE CREATININE CLEARANCE IN PREDICTING GLOMERULAR FILTRATION RATE. ESTIMATED GFR IS NOT APPLICABLE FOR DIALYSIS PATIENTS. CBC (HEMOGRAM ONLY)2018-08-23 06:39:00 Test Item Value Reference Range Comments WHITE BLOOD CELL COUNT (BEAKER) (test haze=316) 5.5 K/ L 3.5-10.5 RED BLOOD CELL COUNT (BEAKER) (test qfjc=477) 3.31 M/ L 3.93-5.22 HEMOGLOBIN (BEAKER) (test jgmz=080) 10.4 GM/DL 11.2-15.7 HEMATOCRIT (BEAKER) (test fphk=383) 34.9 % 34.1-44.9 MEAN CORPUSCULAR VOLUME (BEAKER) (test wbtq=119) 105.4 fL 79.4-94.8 MEAN CORPUSCULAR HEMOGLOBIN (BEAKER) (test 31.4 pg 25.6-32.2 ohze=656) MEAN CORPUSCULAR HEMOGLOBIN CONC (BEAKER) (test 29.8 GM/DL 32.2-35.5 kyft=750) RED CELL DISTRIBUTION WIDTH (BEAKER) (test 15.4 % 11.7-14.4 yaun=280) PLATELET COUNT (BEAKER) (test vrwf=975) 185 K/CU MM 150-450 MEAN PLATELET VOLUME (BEAKER) (test hojz=382) 8.9 fL 9.4-12.3 NUCLEATED RED BLOOD CELLS (BEAKER) (test 0 /100 WBC 0-0 dcms=634) TISSUE [id number] 13:47:00Surgical Pathology Report Case: [id number] Authorizing Provider: Jani Alejandro MD Collected: 08/20/2018 1003 Ordering Location: [facility] Received: 08/20/2018 1118 SERVICES Pathologist: Linda Mullen MD Specimen: Large Intestine, Colon - Right/Ascending , RIGHT COLON AND SMALL BOWEL A. COLON, RIGHT/ASCENDING, RIGHT HEMICOLECTOMY: - CHRONIC ACTIVE ENTERITIS COMPATIBLE WITH CROHN'S DISEASE (SEE COMMENT) - NEGATIVE FOR GRANULOMAS (OR) VIRAL CYTOPATHIC CHANGES - NEGATIVE FOR DYSPLASIA (OR) MALIGNANCY - MARGINS, UNREMARKABLE Signing Pathologist Direct Phone Line: [phone] signed by Linda Mullen MD on 08/22/2018 [...] cytopathic changes are seen.IDC: Dr. 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 Relief Captain sections are submitted in 10 cassettes as follows.Ink code: Blue-one marginBlack-margin closest to anastomotic siteSection code: A1 - technology sales representative sections of both margins, differentially inked per the ink code A2-A5 - entire sections of ulcerative areaA6 - entire sections of hemorrhagic mucosal areaA7-A10 - technology sales representative sections of mucosaFR/ewPerformed.[id number] 06:10:00 Test Item Value Reference Range Comments PHOSPHORUS (BEAKER) (test pmdl=073) 2.3 mg/dL 2.3-4.7 [id number] 06:10:00 Test Item Value Reference Range Comments MAGNESIUM (BEAKER) (test ftrz=334) 1.7 mg/dL 1.6-2.6 BASIC METABOLIC [id number] 06:10:00 Test Item Value Reference Range Comments SODIUM (BEAKER) (test 137 meq/L 136-145 lcig=067) POTASSIUM (BEAKER) (test 3.8 meq/L 3.5-5.1 jjdf=356) CHLORIDE (BEAKER) (test 105 meq/L 98-107 gioy=392) CO2 (BEAKER) (test 25 meq/L 22-29 xwcg=800) BLOOD UREA NITROGEN 5 mg/dL 7-21 (BEAKER) (test qety=056) CREATININE (BEAKER) (test 0.73 mg/dL 0.57-1.25 ianq=866) GLUCOSE RANDOM (BEAKER) 105 mg/dL 70-105 (test wnxk=185) CALCIUM (BEAKER) (test 8.6 mg/dL 8.4-10.2 cmao=809) EGFR (BEAKER) (test 86 mL/min/1.73 sq m ESTIMATED GFR IS NOT ldhm=4774) ACCURATE CREATININE CLEARANCE IN PREDICTING GLOMERULAR FILTRATION RATE. ESTIMATED GFR IS NOT APPLICABLE FOR DIALYSIS PATIENTS. CBC (HEMOGRAM ONLY)2018-08-22 05:31:00 Test Item Value Reference Range Comments WHITE BLOOD CELL COUNT (BEAKER) (test xofm=791) 7.8 K/ L 3.5-10.5 RED BLOOD CELL COUNT (BEAKER) (test vlaq=242) 3.65 M/ L 3.93-5.22 HEMOGLOBIN (BEAKER) (test fsdq=465) 11.5 GM/DL 11.2-15.7 HEMATOCRIT (BEAKER) (test cvid=878) 37.1 % 34.1-44.9 MEAN CORPUSCULAR VOLUME (BEAKER) (test bdfx=478) 101.6 fL 79.4-94.8 MEAN CORPUSCULAR HEMOGLOBIN (BEAKER) (test 31.5 pg 25.6-32.2 pllm=463) MEAN CORPUSCULAR HEMOGLOBIN CONC (BEAKER) (test 31.0 GM/DL 32.2-35.5 arfw=322) RED CELL DISTRIBUTION WIDTH (BEAKER) (test 15.2 % 11.7-14.4 klvl=603) PLATELET COUNT (BEAKER) (test cpvp=073) 215 K/CU MM 150-450 MEAN PLATELET VOLUME (BEAKER) (test mjdo=663) 8.8 fL 9.4-12.3 NUCLEATED RED BLOOD CELLS (BEAKER) (test 0 /100 WBC 0-0 enol=484) [id number] 03:34:00 Test Item Value Reference Range Comments PHOSPHORUS (BEAKER) (test xktf=499) 2.5 mg/dL 2.3-4.7 [id number] 03:34:00 Test Item Value Reference Range Comments MAGNESIUM (BEAKER) (test mqqt=594) 1.9 mg/dL 1.6-2.6 BASIC METABOLIC [id number] 03:34:00 Test Item Value Reference Range Comments SODIUM (BEAKER) (test 138 meq/L 136-145 ncas=929) POTASSIUM (BEAKER) (test 3.9 meq/L 3.5-5.1 vcgs=195) CHLORIDE (BEAKER) (test 108 meq/L 98-107 bvux=426) CO2 (BEAKER) (test 25 meq/L 22-29 ztiw=208) BLOOD UREA NITROGEN 5 mg/dL 7-21 (BEAKER) (test pohq=207) CREATININE (BEAKER) (test 0.67 mg/dL 0.57-1.25 vuqs=770) GLUCOSE RANDOM (BEAKER) 122 mg/dL 70-105 (test leon=816) CALCIUM (BEAKER) (test 8.4 mg/dL 8.4-10.2 thpd=503) EGFR (BEAKER) (test 95 mL/min/1.73 sq m ESTIMATED GFR IS NOT ezzh=5681) ACCURATE CREATININE CLEARANCE IN PREDICTING GLOMERULAR FILTRATION RATE. ESTIMATED GFR IS NOT APPLICABLE FOR DIALYSIS PATIENTS. CBC (HEMOGRAM ONLY)2018-08-21 03:17:00 Test Item Value Reference Range Comments WHITE BLOOD CELL COUNT (BEAKER) (test cyey=588) 7.8 K/ L 3.5-10.5 RED BLOOD CELL COUNT (BEAKER) (test kuns=010) 3.65 M/ L 3.93-5.22 HEMOGLOBIN (BEAKER) (test bvrk=598) 11.4 GM/DL 11.2-15.7 HEMATOCRIT (BEAKER) (test yhvs=197) 36.3 % 34.1-44.9 MEAN CORPUSCULAR VOLUME (BEAKER) (test srbo=011) 99.5 fL 79.4-94.8 MEAN CORPUSCULAR HEMOGLOBIN (BEAKER) (test 31.2 pg 25.6-32.2 tclz=743) MEAN CORPUSCULAR HEMOGLOBIN CONC (BEAKER) (test 31.4 GM/DL 32.2-35.5 jhox=566) RED CELL DISTRIBUTION WIDTH (BEAKER) (test 14.9 % 11.7-14.4 ckqk=882) PLATELET COUNT (BEAKER) (test fiap=075) 204 K/CU MM 150-450 MEAN PLATELET VOLUME (BEAKER) (test yskz=834) 8.5 fL 9.4-12.3 NUCLEATED RED BLOOD CELLS (BEAKER) (test 0 /100 WBC 0-0 sciz=996) POCT-GLUCOSE [id number] 11:42:00 Test Item Value Reference Range Comments POC-GLUCOSE METER (BEAKER) 129 mg/dL 70-110 TESTED AT [facility] [address] [facility] (test odho=0461) [facility] [address] POCT-GLUCOSE [id number] 06:28:00 Test Item Value Reference Range Comments POC-GLUCOSE METER (BEAKER) 102 mg/dL 70-110 TESTED AT [facility] [address] [facility] (test wmmm=0164) [facility] [address] CT, [id number] 15:41:00FINAL REPORT CT abdomen and pelvis with [...] MDReport Verified Date/Time: 08/17/2018 15:41:17 Reading Location: [facility] Diagnostic Imaging Reading Room - [place] [address] STOOL CULTURE + SHIGA [id number] 15:37:00 Test Item Value Reference Range Comments CULTURE (BEAKER) (test No Salmonella, Shigella or veia=3358) Campylobacter isolated POCT-GLUCOSE [id number] 08:25:00 Test Item Value Reference Range Comments POC-GLUCOSE METER (BEAKER) 197 mg/dL 70-110 TESTED AT [facility] [address] [facility] (test tujp=3411) [facility] [address] [id number] 05:59:00 Test Item Value Reference Range Comments PHOSPHORUS (BEAKER) (test gfco=940) 3.6 mg/dL 2.3-4.7 [id number] 05:59:00 Test Item Value Reference Range Comments MAGNESIUM (BEAKER) (test vhhk=833) 2.3 mg/dL 1.6-2.6 BASIC METABOLIC [id number] 05:59:00 Test Item Value Reference Range Comments SODIUM (BEAKER) (test 137 meq/L 136-145 ltjo=542) POTASSIUM (BEAKER) (test 4.7 meq/L 3.5-5.1 nnpb=987) CHLORIDE (BEAKER) (test 104 meq/L 98-107 sczt=921) CO2 (BEAKER) (test 24 meq/L 22-29 npft=337) BLOOD UREA NITROGEN 4 mg/dL 7-21 (BEAKER) (test uyuh=280) CREATININE (BEAKER) (test 0.74 mg/dL 0.57-1.25 lkft=444) GLUCOSE RANDOM (BEAKER) 144 mg/dL 70-105 (test bgzm=770) CALCIUM (BEAKER) (test 9.0 mg/dL 8.4-10.2 smwy=781) EGFR (BEAKER) (test 84 mL/min/1.73 sq m ESTIMATED GFR IS NOT svry=5406) ACCURATE CREATININE CLEARANCE IN PREDICTING GLOMERULAR FILTRATION RATE. ESTIMATED GFR IS NOT APPLICABLE FOR DIALYSIS PATIENTS. HEPATIC FUNCTION [id number] 05:59:00 Test Item Value Reference Range Comments TOTAL PROTEIN (BEAKER) (test dwzc=343) 6.3 gm/dL 6.0-8.3 ALBUMIN (BEAKER) (test bymk=4191) 3.9 g/dL 3.5-5.0 BILIRUBIN TOTAL (BEAKER) (test ktzm=651) 0.3 mg/dL 0.2-1.2 BILIRUBIN DIRECT (BEAKER) (test fgkj=087) 0.1 mg/dL 0.1-0.5 ALKALINE PHOSPHATASE (BEAKER) (test inbw=220) 68 U/L 40-150 AST (SGOT) (BEAKER) (test maxb=650) 23 U/L 5-34 ALT (SGPT) (BEAKER) (test lxmg=376) 41 U/L 6-55 POCT-GLUCOSE [id number] 21:05:00 Test Item Value Reference Range Comments POC-GLUCOSE METER (BEAKER) 148 mg/dL 70-110 TESTED AT [facility] [address] [facility] (test oadc=6061) [facility] [address] C. DIFFICILE GDH [id number] 15:59:00 Test Item Value Reference Range Comments CDT TOXIN (test Negative Negative qgsq=[id number]) CDT GDH ANTIGEN (test Negative Negative No indication of Clostridium hhjt=[id number]) difficile infection and no colonization. Discontinue enteric isolation and therapy. Testing performed by [employer] Rapid Cassette Assay. For GDH, published sensitivity of the assay is 98.7% compared to cytotoxicity testing. For Toxin AB, published sensitivity is 87.8% and specificity 99.4% compared to cytotoxicity testing.Verification of kit performance was done by the [facility] Microbiology Lab prior to clinical use.SHIGA TOXIN [id number] 14:22:00 Test Item Value Reference Range Comments SHIGA TOXIN 1 (BEAKER) (test jbai=6878) Not detected Not detected SHIGA TOXIN 2 (BEAKER) (test tosk=3065) Not detected Not detected POCT-GLUCOSE [id number] 13:13:00 Test Item Value Reference Range Comments POC-GLUCOSE METER (BEAKER) 119 mg/dL 70-110 TESTED AT [address] (test wpaa=9897) [facility] [address] STOOL PATH [id number] 10:03:00 Test Item Value Reference Range Comments PATHOGEN EXAM CHARGED (BEAKER) (test vjcm=6018) Done POCT-GLUCOSE [id number] 09:13:00 Test Item Value Reference Range Comments POC-GLUCOSE METER (BEAKER) 111 mg/dL 70-110 TESTED AT [address] (test tasi=4089) [facility] [address] [id number] 06:09:00 Test Item Value Reference Range Comments PREALBUMIN (BEAKER) (test mnjt=649) 36 mg/dL 14-45 CBC W/PLT COUNT & AUTO [id number] 06:02:00 Test Item Value Reference Range Comments WHITE BLOOD CELL COUNT (BEAKER) (test ezqs=195) 8.2 K/ L 3.5-10.5 RED BLOOD CELL COUNT (BEAKER) (test ktvz=983) 4.02 M/ L 3.93-5.22 HEMOGLOBIN (BEAKER) (test lzsr=386) 12.5 GM/DL 11.2-15.7 HEMATOCRIT (BEAKER) (test irwd=723) 39.7 % 34.1-44.9 MEAN CORPUSCULAR VOLUME (BEAKER) (test klwa=914) 98.8 fL 79.4-94.8 MEAN CORPUSCULAR HEMOGLOBIN (BEAKER) (test 31.1 pg 25.6-32.2 wlvg=719) MEAN CORPUSCULAR HEMOGLOBIN CONC (BEAKER) (test 31.5 GM/DL 32.2-35.5 ndjl=559) RED CELL DISTRIBUTION WIDTH (BEAKER) (test 14.8 % 11.7-14.4 ioxs=107) PLATELET COUNT (BEAKER) (test ltqp=883) 322 K/CU MM 150-450 MEAN PLATELET VOLUME (BEAKER) (test noza=385) 8.6 fL 9.4-12.3 NUCLEATED RED BLOOD CELLS (BEAKER) (test 0 /100 WBC 0-0 zwjr=867) NEUTROPHILS RELATIVE PERCENT (BEAKER) (test 83 % liep=591) LYMPHOCYTES RELATIVE PERCENT (BEAKER) (test 14 % oard=041) MONOCYTES RELATIVE PERCENT (BEAKER) (test 2 % wmnr=007) EOSINOPHILS RELATIVE PERCENT (BEAKER) (test 0 % ualv=297) BASOPHILS RELATIVE PERCENT (BEAKER) (test 0 % epwd=754) NEUTROPHILS ABSOLUTE COUNT (BEAKER) (test 6.83 K/ L 1.56-6.13 lqrb=823) LYMPHOCYTES ABSOLUTE COUNT (BEAKER) (test 1.16 K/ L 1.18-3.74 krvv=717) MONOCYTES ABSOLUTE COUNT (BEAKER) (test 0.16 K/ L 0.24-0.36 bsog=037) EOSINOPHILS ABSOLUTE COUNT (BEAKER) (test 0.00 K/ L 0.04-0.36 ncdv=677) BASOPHILS ABSOLUTE COUNT (BEAKER) (test 0.01 K/ L 0.01-0.08 pazk=763) IMMATURE GRANULOCYTES-RELATIVE PERCENT (BEAKER) 1 % 0-1 (test dejr=8723) [id number] 05:52:00 Test Item Value Reference Range Comments PHOSPHORUS (BEAKER) (test spfm=938) 4.0 mg/dL 2.3-4.7 [id number] 05:52:00 Test Item Value Reference Range Comments MAGNESIUM (BEAKER) (test dzoo=691) 2.3 mg/dL 1.6-2.6 BASIC METABOLIC [id number] 05:52:00 Test Item Value Reference Range Comments SODIUM (BEAKER) (test 139 meq/L 136-145 ghrl=690) POTASSIUM (BEAKER) (test 4.4 meq/L 3.5-5.1 pghs=620) CHLORIDE (BEAKER) (test 104 meq/L 98-107 hoep=464) CO2 (BEAKER) (test 25 meq/L 22-29 hama=126) BLOOD UREA NITROGEN 5 mg/dL 7-21 (BEAKER) (test vzdk=295) CREATININE (BEAKER) (test 0.78 mg/dL 0.57-1.25 pxlc=701) GLUCOSE RANDOM (BEAKER) 172 mg/dL 70-105 (test fjcn=593) CALCIUM (BEAKER) (test 9.0 mg/dL 8.4-10.2 jsos=530) EGFR (BEAKER) (test 80 mL/min/1.73 sq m ESTIMATED GFR IS NOT otfe=6325) ACCURATE CREATININE CLEARANCE IN PREDICTING GLOMERULAR FILTRATION RATE. ESTIMATED GFR IS NOT APPLICABLE FOR DIALYSIS PATIENTS. HEPATIC FUNCTION [id number] 05:52:00 Test Item Value Reference Range Comments TOTAL PROTEIN (BEAKER) (test rret=768) 6.4 gm/dL 6.0-8.3 ALBUMIN (BEAKER) (test yyhp=0904) 3.9 g/dL 3.5-5.0 BILIRUBIN TOTAL (BEAKER) (test ssdi=834) 0.2 mg/dL 0.2-1.2 BILIRUBIN DIRECT (BEAKER) (test vyqe=858) 0.1 mg/dL 0.1-0.5 ALKALINE PHOSPHATASE (BEAKER) (test rvjq=787) 68 U/L 40-150 AST (SGOT) (BEAKER) (test kczh=177) 12 U/L 5-34 ALT (SGPT) (BEAKER) (test apum=749) 29 U/L 6-55 C-REACTIVE [id number] 05:52:00 Test Item Value Reference Range Comments C-REACTIVE PROTEIN (BEAKER) (test lokq=025) 0.22 mg/dL 0.00-0.50 POCT-GLUCOSE [id number] 23:39:00 Test Item Value Reference Range Comments POC-GLUCOSE METER (BEAKER) 122 mg/dL 70-110 TESTED AT [address] (test nxwg=7594) [facility] [address] CT, [id number] 04:05:00FINAL REPORT CLINICAL HISTORY: Acute abdominal pain, [...] MDReport Verified Date/Time: 07/21/2018 04:05:05 Reading Location: [address] Reading Room [id number] 22:00:00 Test Item Value Reference Range Comments LIPASE (BEAKER) (test ijok=997) 12 U/L 8-78 COMPREHENSIVE METABOLIC [id number] 22:00:00 Test Item Value Reference Range Comments TOTAL PROTEIN (BEAKER) 5.6 gm/dL 6.0-8.3 (test tkil=548) ALBUMIN (BEAKER) (test 3.5 g/dL 3.5-5.0 cvgy=2779) ALKALINE PHOSPHATASE 54 U/L 40-150 (BEAKER) (test fnxu=841) BILIRUBIN TOTAL (BEAKER) 0.2 mg/dL 0.2-1.2 (test afkd=966) SODIUM (BEAKER) (test 143 meq/L 136-145 jjuc=158) POTASSIUM (BEAKER) (test 3.9 meq/L 3.5-5.1 eigp=263) CHLORIDE (BEAKER) (test 106 meq/L 98-107 toth=274) CO2 (BEAKER) (test 27 meq/L 22-29 jdsm=777) BLOOD UREA NITROGEN 12 mg/dL 7-21 (BEAKER) (test iith=684) CREATININE (BEAKER) (test 0.76 mg/dL 0.57-1.25 rojc=120) GLUCOSE RANDOM (BEAKER) 84 mg/dL 70-105 (test dknt=587) CALCIUM (BEAKER) (test 8.5 mg/dL 8.4-10.2 pgue=139) AST (SGOT) (BEAKER) (test 13 U/L 5-34 gpzu=193) ALT (SGPT) (BEAKER) (test 27 U/L 6-55 kpyb=227) EGFR (BEAKER) (test 82 mL/min/1.73 sq m ESTIMATED GFR IS NOT crrr=6595) ACCURATE CREATININE CLEARANCE IN PREDICTING GLOMERULAR FILTRATION RATE. ESTIMATED GFR IS NOT APPLICABLE FOR DIALYSIS PATIENTS. [id number] 21:55:00 Test Item Value Reference Range Comments PARTIAL THROMBOPLASTIN TIME (BEAKER) (test 24.6 seconds 22.5-36.0 frah=822) PROTHROMBIN [id number] 21:53:00 Test Item Value Reference Range Comments PROTIME (BEAKER) (test flet=821) 13.2 seconds 11.7-14.7 INR (BEAKER) (test cxjq=293) 1.0 <=5.9 RECOMMENDED COUMADIN/WARFARIN INR THERAPY RANGESSTANDARD DOSE: 2.0 - 3.0 Includes: PROPHYLAXIS forvenous thrombosis, systemic embolization; TREATMENT for venous thrombosis and/or pulmonary embolus.HIGH RISK: Target INR is 2.5-3.5 for patients with mechanical heart valves.CBC W/PLT COUNT & AUTO [id number] 21:44:00 Test Item Value Reference Range Comments WHITE BLOOD CELL COUNT (BEAKER) (test mbjl=246) 10.8 K/ L 3.5-10.5 RED BLOOD CELL COUNT (BEAKER) (test rvgx=107) 3.58 M/ L 3.93-5.22 HEMOGLOBIN (BEAKER) (test vluy=018) 11.1 GM/DL 11.2-15.7 HEMATOCRIT (BEAKER) (test ehoc=370) 35.1 % 34.1-44.9 MEAN CORPUSCULAR VOLUME (BEAKER) (test nyuu=720) 98.0 fL 79.4-94.8 MEAN CORPUSCULAR HEMOGLOBIN (BEAKER) (test 31.0 pg 25.6-32.2 crmx=270) MEAN CORPUSCULAR HEMOGLOBIN CONC (BEAKER) (test 31.6 GM/DL 32.2-35.5 xntt=064) RED CELL DISTRIBUTION WIDTH (BEAKER) (test 15.1 % 11.7-14.4 hclx=216) PLATELET COUNT (BEAKER) (test ygpi=755) 245 K/CU MM 150-450 MEAN PLATELET VOLUME (BEAKER) (test ottv=749) 8.6 fL 9.4-12.3 NUCLEATED RED BLOOD CELLS (BEAKER) (test 0 /100 WBC 0-0 omdz=224) NEUTROPHILS RELATIVE PERCENT (BEAKER) (test 73 % hoti=560) LYMPHOCYTES RELATIVE PERCENT (BEAKER) (test 20 % qlge=742) MONOCYTES RELATIVE PERCENT (BEAKER) (test 6 % gcbz=568) EOSINOPHILS RELATIVE PERCENT (BEAKER) (test 0 % rqzu=627) BASOPHILS RELATIVE PERCENT (BEAKER) (test 0 % uhjh=921) NEUTROPHILS ABSOLUTE COUNT (BEAKER) (test 7.89 K/ L 1.56-6.13 vvyz=838) LYMPHOCYTES ABSOLUTE COUNT (BEAKER) (test 2.13 K/ L 1.18-3.74 brop=844) MONOCYTES ABSOLUTE COUNT (BEAKER) (test 0.65 K/ L 0.24-0.36 tzgd=356) EOSINOPHILS ABSOLUTE COUNT (BEAKER) (test 0.01 K/ L 0.04-0.36 afjz=288) BASOPHILS ABSOLUTE COUNT (BEAKER) (test 0.01 K/ L 0.01-0.08 clsd=038) IMMATURE GRANULOCYTES-RELATIVE PERCENT (BEAKER) 1 % 0-1 (test bnfm=9909) TISSUE [id number] 09:23:00Surgical Pathology Report Case: [id number] Authorizing Provider: King Huynh MD Collected: 07/11/2018 0924 Ordering Location: [address] Received: 07/11/2018 1421 Service Pathologist: Linda [...] AND COMMENT) Signing Pathologist Direct Phone Line: [phone] signed by Linda Mullen MD on 07/12/2018 at 9:23 AMPatient's history of Crohn's disease is noted per Epic note dated 07/10/18. The current sampling shows no significant active or chronic colitis. This may represent complete histologic resolution following treatment. Clinical and endoscopic correlation is recommended.[id number] abdominal pain A. Random colon biopsy. B. [...] noted. No dysplasia or carcinoma is present.BLOOD [id number] 20:01:00 Test Item Value Reference Range Comments CULTURE (BEAKER) (test exds=2855) No growth in 5 days BLOOD [id number] 20:01:00 Test Item Value Reference Range Comments CULTURE (BEAKER) (test alfe=9580) No growth in 5 days BASIC METABOLIC [id number] 04:55:00 Test Item Value Reference Range Comments SODIUM (BEAKER) (test 145 meq/L 136-145 xpog=237) POTASSIUM (BEAKER) (test 4.0 meq/L 3.5-5.1 kfep=602) CHLORIDE (BEAKER) (test 111 meq/L 98-107 krti=260) CO2 (BEAKER) (test 27 meq/L 22-29 bxkg=171) BLOOD UREA NITROGEN 2 mg/dL 7-21 (BEAKER) (test izcs=701) CREATININE (BEAKER) (test 0.68 mg/dL 0.57-1.25 cgzg=115) GLUCOSE RANDOM (BEAKER) 100 mg/dL 70-105 (test ceev=715) CALCIUM (BEAKER) (test 9.0 mg/dL 8.4-10.2 tlqf=128) EGFR (BEAKER) (test 93 mL/min/1.73 sq m ESTIMATED GFR IS NOT eazf=3886) ACCURATE CREATININE CLEARANCE IN PREDICTING GLOMERULAR FILTRATION RATE. ESTIMATED GFR IS NOT APPLICABLE FOR DIALYSIS PATIENTS. CBC W/PLT COUNT & AUTO [id number] 04:37:00 Test Item Value Reference Range Comments WHITE BLOOD CELL COUNT (BEAKER) (test egmc=806) 6.3 K/ L 3.5-10.5 RED BLOOD CELL COUNT (BEAKER) (test lhmp=551) 3.92 M/ L 3.93-5.22 HEMOGLOBIN (BEAKER) (test trgo=095) 12.0 GM/DL 11.2-15.7 HEMATOCRIT (BEAKER) (test gaem=937) 38.3 % 34.1-44.9 MEAN CORPUSCULAR VOLUME (BEAKER) (test cjwp=626) 97.7 fL 79.4-94.8 MEAN CORPUSCULAR HEMOGLOBIN (BEAKER) (test 30.6 pg 25.6-32.2 ljzc=031) MEAN CORPUSCULAR HEMOGLOBIN CONC (BEAKER) (test 31.3 GM/DL 32.2-35.5 fkhs=850) RED CELL DISTRIBUTION WIDTH (BEAKER) (test 13.5 % 11.7-14.4 awiv=257) PLATELET COUNT (BEAKER) (test oeln=634) 220 K/CU MM 150-450 MEAN PLATELET VOLUME (BEAKER) (test rero=417) 9.6 fL 9.4-12.3 NUCLEATED RED BLOOD CELLS (BEAKER) (test 0 /100 WBC 0-0 ndfq=930) NEUTROPHILS RELATIVE PERCENT (BEAKER) (test 76 % kxbq=582) LYMPHOCYTES RELATIVE PERCENT (BEAKER) (test 20 % hjwx=916) MONOCYTES RELATIVE PERCENT (BEAKER) (test 3 % lkow=302) EOSINOPHILS RELATIVE PERCENT (BEAKER) (test 0 % txuf=483) BASOPHILS RELATIVE PERCENT (BEAKER) (test 0 % awrx=228) NEUTROPHILS ABSOLUTE COUNT (BEAKER) (test 4.80 K/ L 1.56-6.13 jvwz=643) LYMPHOCYTES ABSOLUTE COUNT (BEAKER) (test 1.26 K/ L 1.18-3.74 zqmy=916) MONOCYTES ABSOLUTE COUNT (BEAKER) (test 0.20 K/ L 0.24-0.36 hquo=668) EOSINOPHILS ABSOLUTE COUNT (BEAKER) (test 0.00 K/ L 0.04-0.36 mtud=976) BASOPHILS ABSOLUTE COUNT (BEAKER) (test 0.01 K/ L 0.01-0.08 uxih=837) IMMATURE GRANULOCYTES-RELATIVE PERCENT (BEAKER) 1 % 0-1 (test idms=2045) BASIC METABOLIC [id number] 06:15:00 Test Item Value Reference Range Comments SODIUM (BEAKER) (test 144 meq/L 136-145 kxyw=104) POTASSIUM (BEAKER) (test 4.3 meq/L 3.5-5.1 Specimen slightly ilah=049) hemolyzed CHLORIDE (BEAKER) (test 113 meq/L 98-107 hpsj=530) CO2 (BEAKER) (test 24 meq/L 22-29 rmmw=118) BLOOD UREA NITROGEN 3 mg/dL 7-21 (BEAKER) (test cadp=047) CREATININE (BEAKER) (test 0.72 mg/dL 0.57-1.25 Specimen slightly jjnc=887) hemolyzed GLUCOSE RANDOM (BEAKER) 138 mg/dL 70-105 (test cmdy=251) CALCIUM (BEAKER) (test 9.3 mg/dL 8.4-10.2 joeh=592) EGFR (BEAKER) (test 87 mL/min/1.73 sq m ESTIMATED GFR IS NOT hwls=0458) ACCURATE CREATININE CLEARANCE IN PREDICTING GLOMERULAR FILTRATION RATE. ESTIMATED GFR IS NOT APPLICABLE FOR DIALYSIS PATIENTS. CBC W/PLT COUNT & AUTO [id number] 06:06:00 Test Item Value Reference Range Comments WHITE BLOOD CELL COUNT (BEAKER) (test udzg=964) 7.5 K/ L 3.5-10.5 RED BLOOD CELL COUNT (BEAKER) (test jcgy=290) 4.07 M/ L 3.93-5.22 HEMOGLOBIN (BEAKER) (test lftl=537) 12.9 GM/DL 11.2-15.7 HEMATOCRIT (BEAKER) (test duva=729) 40.3 % 34.1-44.9 MEAN CORPUSCULAR VOLUME (BEAKER) (test amjk=867) 99.0 fL 79.4-94.8 MEAN CORPUSCULAR HEMOGLOBIN (BEAKER) (test 31.7 pg 25.6-32.2 qljl=783) MEAN CORPUSCULAR HEMOGLOBIN CONC (BEAKER) (test 32.0 GM/DL 32.2-35.5 gxyf=589) RED CELL DISTRIBUTION WIDTH (BEAKER) (test 13.3 % 11.7-14.4 jovs=438) PLATELET COUNT (BEAKER) (test xipz=136) 191 K/CU MM 150-450 MEAN PLATELET VOLUME (BEAKER) (test fthg=593) 9.9 fL 9.4-12.3 NUCLEATED RED BLOOD CELLS (BEAKER) (test 0 /100 WBC 0-0 qzbu=296) NEUTROPHILS RELATIVE PERCENT (BEAKER) (test 70 % uwvq=087) LYMPHOCYTES RELATIVE PERCENT (BEAKER) (test 24 % gczn=228) MONOCYTES RELATIVE PERCENT (BEAKER) (test 5 % cpjb=884) EOSINOPHILS RELATIVE PERCENT (BEAKER) (test 0 % bclz=976) BASOPHILS RELATIVE PERCENT (BEAKER) (test 0 % qdvi=501) NEUTROPHILS ABSOLUTE COUNT (BEAKER) (test 5.25 K/ L 1.56-6.13 docr=250) LYMPHOCYTES ABSOLUTE COUNT (BEAKER) (test 1.83 K/ L 1.18-3.74 ddgt=634) MONOCYTES ABSOLUTE COUNT (BEAKER) (test 0.37 K/ L 0.24-0.36 bngi=915) EOSINOPHILS ABSOLUTE COUNT (BEAKER) (test 0.02 K/ L 0.04-0.36 pdfc=932) BASOPHILS ABSOLUTE COUNT (BEAKER) (test 0.01 K/ L 0.01-0.08 asuf=122) IMMATURE GRANULOCYTES-RELATIVE PERCENT (BEAKER) 0 % 0-1 (test ttnj=8007) STOOL CULTURE + SHIGA [id number] 12:15:00 Test Item Value Reference Range Comments CULTURE (BEAKER) (test No Salmonella, Shigella or dksz=4272) Campylobacter isolated BASIC METABOLIC [id number] 07:08:00 Test Item Value Reference Range Comments SODIUM (BEAKER) (test 143 meq/L 136-145 npyz=049) POTASSIUM (BEAKER) (test 4.2 meq/L 3.5-5.1 wqne=088) CHLORIDE (BEAKER) (test 111 meq/L 98-107 ygjl=557) CO2 (BEAKER) (test 25 meq/L 22-29 ienf=902) BLOOD UREA NITROGEN 3 mg/dL 7-21 (BEAKER) (test ulpj=335) CREATININE (BEAKER) (test 0.67 mg/dL 0.57-1.25 ljka=358) GLUCOSE RANDOM (BEAKER) 106 mg/dL 70-105 (test fhwx=890) CALCIUM (BEAKER) (test 9.2 mg/dL 8.4-10.2 tqox=197) EGFR (BEAKER) (test 95 mL/min/1.73 sq m ESTIMATED GFR IS NOT zeqx=4363) ACCURATE CREATININE CLEARANCE IN PREDICTING GLOMERULAR FILTRATION RATE. ESTIMATED GFR IS NOT APPLICABLE FOR DIALYSIS PATIENTS. CBC W/PLT COUNT & AUTO [id number] 06:42:00 Test Item Value Reference Range Comments WHITE BLOOD CELL COUNT (BEAKER) (test oayb=492) 6.2 K/ L 3.5-10.5 RED BLOOD CELL COUNT (BEAKER) (test ssym=363) 4.29 M/ L 3.93-5.22 HEMOGLOBIN (BEAKER) (test rqhq=249) 13.4 GM/DL 11.2-15.7 HEMATOCRIT (BEAKER) (test jnfk=394) 41.1 % 34.1-44.9 MEAN CORPUSCULAR VOLUME (BEAKER) (test nhxd=249) 95.8 fL 79.4-94.8 MEAN CORPUSCULAR HEMOGLOBIN (BEAKER) (test 31.2 pg 25.6-32.2 eibq=839) MEAN CORPUSCULAR HEMOGLOBIN CONC (BEAKER) (test 32.6 GM/DL 32.2-35.5 rwld=920) RED CELL DISTRIBUTION WIDTH (BEAKER) (test 13.1 % 11.7-14.4 mlde=648) PLATELET COUNT (BEAKER) (test aziw=763) 232 K/CU MM 150-450 MEAN PLATELET VOLUME (BEAKER) (test vqdu=974) 9.0 fL 9.4-12.3 NUCLEATED RED BLOOD CELLS (BEAKER) (test 0 /100 WBC 0-0 hppf=085) NEUTROPHILS RELATIVE PERCENT (BEAKER) (test 67 % lxww=121) LYMPHOCYTES RELATIVE PERCENT (BEAKER) (test 27 % smce=897) MONOCYTES RELATIVE PERCENT (BEAKER) (test 5 % qlka=079) EOSINOPHILS RELATIVE PERCENT (BEAKER) (test 0 % vquc=272) BASOPHILS RELATIVE PERCENT (BEAKER) (test 0 % fdrr=496) NEUTROPHILS ABSOLUTE COUNT (BEAKER) (test 4.18 K/ L 1.56-6.13 paej=966) LYMPHOCYTES ABSOLUTE COUNT (BEAKER) (test 1.69 K/ L 1.18-3.74 qyjh=595) MONOCYTES ABSOLUTE COUNT (BEAKER) (test 0.29 K/ L 0.24-0.36 mcds=601) EOSINOPHILS ABSOLUTE COUNT (BEAKER) (test 0.01 K/ L 0.04-0.36 dcqs=661) BASOPHILS ABSOLUTE COUNT (BEAKER) (test 0.02 K/ L 0.01-0.08 seeq=555) IMMATURE GRANULOCYTES-RELATIVE PERCENT (BEAKER) 1 % 0-1 (test dbgv=6003) CT, ABDOMEN - PELVIS, [id number] 14:17:00Reason for exam:-> Evaluation of small bowel [...] lesion demonstrated. Endplate degenerative change at L1-2 ieqD41-F4 noted. There is an implanted pump in the right lower quadrant subcutaneous fat with a lead going to the thecal sac terminating at the T11 level. IMPRESSION: Evidence of acute colitis of the sigmoid colon. No small bowel enteritis demonstrated. No stricture, fistula, or intramesenteric abscess demonstrated. Signed: Vicente Montero MDReport Verified Date/Time: 07/08/2018 14:17:31 Reading Location: [facility] B1 C013X Ortho Consult Reading Room BASI METABOLIC [id number] 06:53:00 Test Item Value Reference Range Comments SODIUM (BEAKER) (test 137 meq/L 136-145 ijtj=353) POTASSIUM (BEAKER) (test 4.2 meq/L 3.5-5.1 wgyt=165) CHLORIDE (BEAKER) (test 105 meq/L 98-107 guzq=548) CO2 (BEAKER) (test 23 meq/L 22-29 pszx=700) BLOOD UREA NITROGEN 3 mg/dL 7-21 (BEAKER) (test eojr=297) CREATININE (BEAKER) (test 0.75 mg/dL 0.57-1.25 loxv=524) GLUCOSE RANDOM (BEAKER) 85 mg/dL 70-105 (test nadu=249) CALCIUM (BEAKER) (test 8.6 mg/dL 8.4-10.2 hode=606) EGFR (BEAKER) (test 83 mL/min/1.73 sq m ESTIMATED GFR IS NOT hhzr=6933) ACCURATE CREATININE CLEARANCE IN PREDICTING GLOMERULAR FILTRATION RATE. ESTIMATED GFR IS NOT APPLICABLE FOR DIALYSIS PATIENTS. CBC W/PLT COUNT & AUTO [id number] 06:25:00 Test Item Value Reference Range Comments WHITE BLOOD CELL COUNT (BEAKER) (test jumn=330) 5.3 K/ L 3.5-10.5 RED BLOOD CELL COUNT (BEAKER) (test maft=135) 4.11 M/ L 3.93-5.22 HEMOGLOBIN (BEAKER) (test bteu=272) 12.8 GM/DL 11.2-15.7 HEMATOCRIT (BEAKER) (test xats=606) 40.4 % 34.1-44.9 MEAN CORPUSCULAR VOLUME (BEAKER) (test jhgc=433) 98.3 fL 79.4-94.8 MEAN CORPUSCULAR HEMOGLOBIN (BEAKER) (test 31.1 pg 25.6-32.2 wusg=370) MEAN CORPUSCULAR HEMOGLOBIN CONC (BEAKER) (test 31.7 GM/DL 32.2-35.5 sfwi=805) RED CELL DISTRIBUTION WIDTH (BEAKER) (test 13.7 % 11.7-14.4 rmkf=853) PLATELET COUNT (BEAKER) (test rrqh=051) 213 K/CU MM 150-450 MEAN PLATELET VOLUME (BEAKER) (test joty=898) 8.9 fL 9.4-12.3 NUCLEATED RED BLOOD CELLS (BEAKER) (test 0 /100 WBC 0-0 prfl=648) NEUTROPHILS RELATIVE PERCENT (BEAKER) (test 47 % eena=601) LYMPHOCYTES RELATIVE PERCENT (BEAKER) (test 39 % ypga=157) MONOCYTES RELATIVE PERCENT (BEAKER) (test 9 % bhrz=934) EOSINOPHILS RELATIVE PERCENT (BEAKER) (test 5 % gqgn=040) BASOPHILS RELATIVE PERCENT (BEAKER) (test 0 % ysjj=148) NEUTROPHILS ABSOLUTE COUNT (BEAKER) (test 2.48 K/ L 1.56-6.13 hppg=801) LYMPHOCYTES ABSOLUTE COUNT (BEAKER) (test 2.04 K/ L 1.18-3.74 uray=534) MONOCYTES ABSOLUTE COUNT (BEAKER) (test 0.45 K/ L 0.24-0.36 xgfp=808) EOSINOPHILS ABSOLUTE COUNT (BEAKER) (test 0.26 K/ L 0.04-0.36 nteu=591) BASOPHILS ABSOLUTE COUNT (BEAKER) (test 0.02 K/ L 0.01-0.08 xfbb=104) IMMATURE GRANULOCYTES-RELATIVE PERCENT (BEAKER) 0 % 0-1 (test lrcl=6215) SHIGA TOXIN [id number] 13:53:00 Test Item Value Reference Range Comments SHIGA TOXIN 1 (BEAKER) (test zrej=3696) Not detected Not detected SHIGA TOXIN 2 (BEAKER) (test nufk=4639) Not detected Not detected C. DIFFICILE GDH [id number] 13:28:00 Test Item Value Reference Range Comments CDT TOXIN (test Negative Negative mdvo=[id number]) CDT GDH ANTIGEN (test Negative Negative No indication of Clostridium hyih=[id number]) difficile infection and no colonization. Discontinue enteric isolation and therapy. Testing performed by [employer] Rapid Cassette Assay. For GDH, published sensitivity of the assay is 98.7% compared to cytotoxicity testing. For Toxin AB, published sensitivity is 87.8% and specificity 99.4% compared to cytotoxicity testing.Verification of kit performance was done by the [facility] Microbiology Lab prior to clinical use.STOOL PATH [id number] 10:17:00 Test Item Value Reference Range Comments PATHOGEN EXAM CHARGED (BEAKER) (test mxgv=4799) Done BASIC METABOLIC [id number] 05:17:00 Test Item Value Reference Range Comments SODIUM (BEAKER) (test 142 meq/L 136-145 zooh=103) POTASSIUM (BEAKER) (test 4.3 meq/L 3.5-5.1 tgor=582) CHLORIDE (BEAKER) (test 110 meq/L 98-107 ayss=112) CO2 (BEAKER) (test 25 meq/L 22-29 csuh=068) BLOOD UREA NITROGEN 5 mg/dL 7-21 (BEAKER) (test kgga=888) CREATININE (BEAKER) (test 0.78 mg/dL 0.57-1.25 sgys=573) GLUCOSE RANDOM (BEAKER) 108 mg/dL 70-105 (test tktc=933) CALCIUM (BEAKER) (test 8.9 mg/dL 8.4-10.2 zzgq=466) EGFR (BEAKER) (test 80 mL/min/1.73 sq m ESTIMATED GFR IS NOT nkan=6410) ACCURATE CREATININE CLEARANCE IN PREDICTING GLOMERULAR FILTRATION RATE. ESTIMATED GFR IS NOT APPLICABLE FOR DIALYSIS PATIENTS. CBC W/PLT COUNT & AUTO [id number] 04:58:00 Test Item Value Reference Range Comments WHITE BLOOD CELL COUNT (BEAKER) (test diac=793) 4.8 K/ L 3.5-10.5 RED BLOOD CELL COUNT (BEAKER) (test eshz=813) 3.79 M/ L 3.93-5.22 HEMOGLOBIN (BEAKER) (test zayh=393) 11.8 GM/DL 11.2-15.7 HEMATOCRIT (BEAKER) (test yqea=224) 37.6 % 34.1-44.9 MEAN CORPUSCULAR VOLUME (BEAKER) (test oees=205) 99.2 fL 79.4-94.8 MEAN CORPUSCULAR HEMOGLOBIN (BEAKER) (test 31.1 pg 25.6-32.2 rway=519) MEAN CORPUSCULAR HEMOGLOBIN CONC (BEAKER) (test 31.4 GM/DL 32.2-35.5 rgni=695) RED CELL DISTRIBUTION WIDTH (BEAKER) (test 14.5 % 11.7-14.4 aokf=568) PLATELET COUNT (BEAKER) (test fnll=894) 216 K/CU MM 150-450 MEAN PLATELET VOLUME (BEAKER) (test cpkt=399) 9.3 fL 9.4-12.3 NUCLEATED RED BLOOD CELLS (BEAKER) (test 0 /100 WBC 0-0 tkfa=763) NEUTROPHILS RELATIVE PERCENT (BEAKER) (test 44 % jtah=406) LYMPHOCYTES RELATIVE PERCENT (BEAKER) (test 44 % uwdz=665) MONOCYTES RELATIVE PERCENT (BEAKER) (test 6 % fnqn=936) EOSINOPHILS RELATIVE PERCENT (BEAKER) (test 5 % pfxh=320) BASOPHILS RELATIVE PERCENT (BEAKER) (test 0 % sqdw=705) NEUTROPHILS ABSOLUTE COUNT (BEAKER) (test 2.14 K/ L 1.56-6.13 sagl=288) LYMPHOCYTES ABSOLUTE COUNT (BEAKER) (test 2.12 K/ L 1.18-3.74 pwhn=789) MONOCYTES ABSOLUTE COUNT (BEAKER) (test 0.31 K/ L 0.24-0.36 kddw=027) EOSINOPHILS ABSOLUTE COUNT (BEAKER) (test 0.24 K/ L 0.04-0.36 elbw=020) BASOPHILS ABSOLUTE COUNT (BEAKER) (test 0.01 K/ L 0.01-0.08 bdvl=719) IMMATURE GRANULOCYTES-RELATIVE PERCENT (BEAKER) 0 % 0-1 (test rgnf=0058) RAD, CHEST, 1 VIEW, NON [id number] 14:21:00Reason for exam:->FeverShould this be performed at the bedside?->YesFINAL REPORT TECHNIQUE: Frontal chest radiograph dated 07/06/2018. CLINICAL HISTORY: Fever COMPARISON STUDY: None IMPRESSION:Lungs are clear. No pleural effusion or pneumothorax. Cardiomediastinal silhouette is normal in size. No pulmonary edema. No fracture. Signed: Xiao Mckinney MDReport Verified Date/Time: 11/2018 14:21:04 Reading Location: [facility] Radiology Reading Room RAPID DRUG SCREEN , [id number] 12:52:00 Test Item Value Reference Range Comments BARBITURATE URINE (BEAKER) (test bezh=731) Negative Negative BENZODIAZEPINE SCREEN URINE (BEAKER) (test Positive Negative nqce=755) COCAINE (METAB.) SCREEN (BEAKER) (test hnaf=0761) Negative Negative METHADONE SCREEN (BEAKER) (test fqzh=7121) Negative Negative OPIATE SCREEN URINE (BEAKER) (test lykb=005) Positive Negative CANNABINOID SCREEN URINE (BEAKER) (test mkon=186) Negative Negative AMPH/METHAMPH SCREEN (BEAKER) (test xfdn=6433) Negative Negative PHENCYCLIDINE SCREEN URINE (BEAKER) (test gdci=263) Negative Negative OXYCODONE SCREEN URINE (BEAKER) (test ozig=5423) Negative Negative DRUG CUTOFF CONC.Cocaine 300 ng/mL Cannabinoid 50 ng/mL Benzodiazepine 200 ng/mLBarbiturate 200 ng/ mLPhencyclidine 25 ng/mLOpiate 300 ng/mLMethadone 300 ng/mLAmphetamine/ 1000 ng/mL MethamphetamineOxycodone 300 ng/mLThis assay provides an unconfirmed qualitative test result for the clinical management of patients in emergency situations. Chain of custody not maintained. Some mwsy-dwi-wuawhmk medications, as well as adulterants, may cause inaccurate results. Clinical correlation should be applied. A more comprehensive drug screen or confirmation of a detected drug may be performed upon request.CBC W/PLT COUNT & AUTO [id number] 12:40:00 Test Item Value Reference Range Comments WHITE BLOOD CELL COUNT (BEAKER) (test mfqd=797) 8.7 K/ L 3.5-10.5 RED BLOOD CELL COUNT (BEAKER) (test nmxx=411) 4.01 M/ L 3.93-5.22 HEMOGLOBIN (BEAKER) (test xxlw=630) 12.6 GM/DL 11.2-15.7 HEMATOCRIT (BEAKER) (test oaih=809) 39.3 % 34.1-44.9 MEAN CORPUSCULAR VOLUME (BEAKER) (test pvle=743) 98.0 fL 79.4-94.8 MEAN CORPUSCULAR HEMOGLOBIN (BEAKER) (test 31.4 pg 25.6-32.2 mziq=909) MEAN CORPUSCULAR HEMOGLOBIN CONC (BEAKER) (test 32.1 GM/DL 32.2-35.5 aaud=214) RED CELL DISTRIBUTION WIDTH (BEAKER) (test 14.3 % 11.7-14.4 gats=045) PLATELET COUNT (BEAKER) (test wndd=740) 212 K/CU MM 150-450 MEAN PLATELET VOLUME (BEAKER) (test qryi=216) 10.0 fL 9.4-12.3 NUCLEATED RED BLOOD CELLS (BEAKER) (test 0 /100 WBC 0-0 msyb=914) NEUTROPHILS RELATIVE PERCENT (BEAKER) (test 65 % ekgs=787) LYMPHOCYTES RELATIVE PERCENT (BEAKER) (test 25 % ssfo=134) MONOCYTES RELATIVE PERCENT (BEAKER) (test 7 % dzdz=499) EOSINOPHILS RELATIVE PERCENT (BEAKER) (test 2 % ahos=257) BASOPHILS RELATIVE PERCENT (BEAKER) (test 0 % bahc=898) NEUTROPHILS ABSOLUTE COUNT (BEAKER) (test 5.70 K/ L 1.56-6.13 ldlx=438) LYMPHOCYTES ABSOLUTE COUNT (BEAKER) (test 2.18 K/ L 1.18-3.74 vyxe=710) MONOCYTES ABSOLUTE COUNT (BEAKER) (test 0.59 K/ L 0.24-0.36 qzdp=323) EOSINOPHILS ABSOLUTE COUNT (BEAKER) (test 0.17 K/ L 0.04-0.36 ndey=142) BASOPHILS ABSOLUTE COUNT (BEAKER) (test 0.02 K/ L 0.01-0.08 mpla=042) IMMATURE GRANULOCYTES-RELATIVE PERCENT (BEAKER) 1 % 0-1 (test rjww=9971) [id number] 12:12:00 Test Item Value Reference Range Comments PHOSPHORUS (BEAKER) (test ygiz=476) 3.0 mg/dL 2.3-4.7 [id number] 12:12:00 Test Item Value Reference Range Comments MAGNESIUM (BEAKER) (test hckl=792) 2.1 mg/dL 1.6-2.6 BASIC METABOLIC [id number] 12:12:00 Test Item Value Reference Range Comments SODIUM (BEAKER) (test 138 meq/L 136-145 ecoz=725) POTASSIUM (BEAKER) (test 3.7 meq/L 3.5-5.1 bzyw=474) CHLORIDE (BEAKER) (test 104 meq/L 98-107 ifcv=588) CO2 (BEAKER) (test 25 meq/L 22-29 uysm=898) BLOOD UREA NITROGEN 8 mg/dL 7-21 (BEAKER) (test rijm=864) CREATININE (BEAKER) (test 0.72 mg/dL 0.57-1.25 gizv=003) GLUCOSE RANDOM (BEAKER) 93 mg/dL 70-105 (test qkyf=583) CALCIUM (BEAKER) (test 9.1 mg/dL 8.4-10.2 dsov=535) EGFR (BEAKER) (test 87 mL/min/1.73 sq m ESTIMATED GFR IS NOT gier=3691) ACCURATE CREATININE CLEARANCE IN PREDICTING GLOMERULAR FILTRATION RATE. ESTIMATED GFR IS NOT APPLICABLE FOR DIALYSIS PATIENTS. HEPATIC FUNCTION [id number] 12:12:00 Test Item Value Reference Range Comments TOTAL PROTEIN (BEAKER) (test qotz=753) 6.4 gm/dL 6.0-8.3 ALBUMIN (BEAKER) (test zhsn=4053) 3.9 g/dL 3.5-5.0 BILIRUBIN TOTAL (BEAKER) (test near=810) 0.5 mg/dL 0.2-1.2 BILIRUBIN DIRECT (BEAKER) (test nnsy=461) 0.2 mg/dL 0.1-0.5 ALKALINE PHOSPHATASE (BEAKER) (test qmtt=252) 78 U/L 40-150 AST (SGOT) (BEAKER) (test larr=094) 14 U/L 5-34 ALT (SGPT) (BEAKER) (test bjyo=350) 12 U/L 6-55 LACTIC ACID, VENOUS, WHOLE [id number] 12:08:00 Test Item Value Reference Range Comments LACTATE BLOOD VENOUS (2) 0.8 mmol/L 0.5-2.2 Specimen moderately hemolyzed (BEAKER) (test occl=8120) URINALYSIS W/ REFLEX URINE [id number] 11:10:00 Test Item Value Reference Range Comments COLOR (BEAKER) (test nkqi=341) Light Yellow CLARITY (BEAKER) (test eblv=049) Clear SPECIFIC GRAVITY UA (BEAKER) (test rclx=700) 1.020 1.001-1.035 PH UA (BEAKER) (test lzbp=540) 6.5 5.0-8.0 PROTEIN UA (BEAKER) (test hmdi=231) Negative Negative GLUCOSE UA (BEAKER) (test rouj=955) Negative Negative KETONES UA (BEAKER) (test oduz=913) Negative Negative BILIRUBIN UA (BEAKER) (test oxlc=842) Negative Negative BLOOD UA (BEAKER) (test xcgm=234) Negative Negative NITRITE UA (BEAKER) (test hwoc=200) Negative Negative LEUKOCYTE ESTERASE UA (BEAKER) (test lsdq=554) Negative Negative UROBILINOGEN UA (BEAKER) (test whdj=945) 0.2 mg/dL 0.2-1.0 RBC UA (BEAKER) (test wejy=208) < /HPF WBC UA (BEAKER) (test ifzy=148) 0 /HPF SQUAMOUS EPITHELIAL (BEAKER) (test lbeg=229) < /HPF SOURCE(BEAKER) (test soxx=1683) CT ABDOMEN/PELVIS [id number] 14:26:[address] [id number] IMAGING REPORTPatient Name : Manuel DEL TORO of Service: [id number]: 45 Sex: F Order #: [id number] [facility] 1970 [facility] Number: [id number] Record Number: [id number] Hospital Number: [id number] Physician: KISHAN MUNOZ - Ordering Physician: HERNANDEZ [...] by TIFFANIE Syed 2016-07-26 14:23:48CT ABDOMEN/ PELVIS [id number] 02:49:[address] [id number] IMAGING REPORTPatient Name: Manuel DEL TORO of Service: [id number]: 45 Sex: F Order #: [id number] [facility] 2NEDOB: 1970 X-Ray Number: [id number] Record Number: [id number] Hospital Number: [id number] Physician: BLAKE ALLEN - Ordering Physician: AURORA [...] authenticated by MARTINEZ VALDEZ 2016-07-17 02:47:19ABDOMEN 2 [id number] 12:14:[address] [id number] IMAGING REPORTPatient Name: Manuel DEL TORO of Service: [id number]: 45 Sex: F Order #: [id number] [facility] 1970 [facility] Number: [id number] Record Number: [id number] Hospital Number: [id number] Physician: Austin TEJEDA Physician: Elvis GARCIA 2 [...]
--- OUTSIDE RECORDS SUMMARY | 2018-11-06 17:13 | XMS REPORT | Encounter Summary ---
:1970 Author Reason for Visit hospital follow up Instructions 1. Crohn's disease of small intestine crohn's disease: care instructions diet for inflammatory bowel disease: care instructions Xanax 2 mg tablet 2. Skin tag skin tag removal: care instructions Discussion Note charge for removal of skin tag Plan of Care Reminders Provider Appointments None recorded. Lab None recorded. Referral None recorded. Procedures None recorded. Surgeries None recorded. Imaging None recorded. Medications Name Start Date acetaminophen 300 mg-codeine 30 mg tablet acetaminophen 300 mg-codeine 60 mg tablet celecoxib 100 mg capsule clonazepam 1 mg tablet 1 TAB PO FOUR TIMES A DAILY NEEDED diazepam 5 mg tablet escitalopram 10 mg tablet escitalopram 20 mg [...] tablet 4 TAB X3 DAYS, THEN TAPER prednisone 20 mg tablet quetiapine 100 mg tablet Stelara 90 mg/mL subcutaneous syringe tramadol 50 mg tablet Take 1 tablet every 8 hours by oral route as needed. valacyclovir 1 gram tablet Xanax 2 mg tablet Take 1 tablet every day by oral route. take as needed for anxiety Medications Administered None recorded. Vitals Height Weight BMI Blood Pressure 62 in 148 lbs 16 oz 27.3 kg/m2 153/90 mm[Hg] Lab Results None recorded. Allergies Code Code System Name Reaction Severity Status Onset 168818 RxNorm Cipro Other Severe Active 763005 RxNorm Phenergan Facial Moderate Active Swelling Problems Name Status Onset Date Source Chronic Pain Active 08/15/2018 Gastroesophageal Reflux Disease Active 08/15/2018 Crohn's Disease of Small Intestine Active 08/15/2018 Endometriosis (Clinical) Active 08/15/2018 Multiple Joint Pain Active 08/15/2018 Postoperative Visit Active 08/29/2018 Skin Tag Active 10/17/2018 Procedures Date Name Performed by Large Intestine Excision Information not available Cholecystectomy Information not available Hysterectomy Information not available Vaccine List None recorded. Social History Smoking Status Current Every Day Smoker Past Encounters 10/17/2018 Crohn's Disease of Small Intestine; Skin Tag Mychal Dai MD: [address] [facility], [address], [place] [address], Ph. 09/17/2018 Umbilical Pain Julia Schulz BELL CAPTAIN: [address] [facility], [address], [place] [address], Ph. History of Present Illness Note: F/up recent hosp for flare up of crohn's disease was placed on steroids and given xanax in the hosp for anxiety states takes at night and helpful for GI sx<div>is seeing her GI doctor next week</div><div >ros</div><div>gen doing better </div><div>cv stable& lt;/div><div>resp neg</div><div>gi above</div>Review of Systems: ROS as noted in the HPI Review of Systems None recorded. Physical Exam Notes: consult
[2018-11-06 18:32] LABS: Absolute Lymphocytes (CBC) 2.6 K/uL (0.7-4.9); Eosinophils % 2.4 % (0-4.4); Hematocrit 41.6 % (36.0-45.0); Lymphocytes % 33.8 % (15.3-44.8); MPV 6.4 fL (7.6-11.3); Monocytes % 5.1 % (3.3-12.3); RBC Red Blood Cell Count 4.58 M/uL (3.86-4.86)
--- NOTE | 2018-11-06 18:45 | ER ---
Nurse's Notes [facility] Name: Angela Rodriguez Age: 48 yrs Sex: Female : 1970 Arrival Date: 11/06/2018 Time: 17:07 Bed 27 Private MD: Jorge L Chamberlain E Diagnosis: Abdominal tenderness;Diarrhea, unspecified;Crohn's disease [regional enteritis] Presentation: 11/06 17:28 Presenting complaint: Patient states: DIFFUSE ABDOMINAL PAIN WITH DIARRHEA x3 HR. bp Transition of care: patient was not received from another setting of care. Onset of symptoms was November 06, 2018 at 14:00. Risk Assessment: Do you want to hurt yourself or someone else? Patient reports no desire to harm self or others. Initial Sepsis Screen: Does the patient meet any 2 criteria? No. Patient's initial sepsis screen is negative. Does the patient have a suspected source of infection? No. Patient's initial sepsis screen is negative. Care prior to arrival: None. 17:28 Method Of Arrival: Wheelchair bp 17:28 Acuity: LIZZY 3 bp MICROARRAY SPECIALIST: 17:30 LMP N/A - Hysterectomy bp Historical: - Allergies: 17:30 Ciprofloxacin; bp 17:30 Phenergan; bp - Home Meds: 17:30 DILAUDID IN PAIN PUMP [Active]; Klonopin Oral [Active]; Lialda 1.2 gram Oral grps 2 bp tabs once daily [Active]; pantoprazole 40 mg intravenous solr [Active]; Stelara subcutaneous [Active]; - PMHx: 17:30 Bipolar disorder; Chronic pain; Crohn's; Endometrosis; Hypothyroidism; bp - PSHx: 17:30 Hysterectomy; bp - Immunization history:: Adult Immunizations up to date. - Social history:: Smoking status: Patient uses tobacco products, smokes one pack cigarettes per day. - Ebola Screening: : No symptoms or risks identified at this time. - Family history:: not pertinent. Screenin:04 Abuse screen: Denies threats or abuse. Denies injuries from another. Nutritional rv screening: No deficits noted. Tuberculosis screening: No symptoms or risk factors identified. Fall Risk None identified. Assessment: 18:34 General: Appears uncomfortable, Behavior is cooperative. Pain: Complains of pain in iw right upper quadrant and left upper quadrant Pain does not radiate. Pain currently is 10 out of 10 on a pain scale. Quality of pain is described as sharp, Pain began 2 am Is continuous. Neuro: Level of Consciousness is awake, alert, obeys commands, Oriented to person, place, time, situation, Moves all extremities. Full function. Cardiovascular: Patient's skin is warm and dry. Respiratory: Respiratory effort is even, unlabored, Respiratory pattern is regular. GI: Abdomen is non-distended, Bowel sounds present X 4 quads. Abd is soft X 4 quads Abdomen is tender to palpation in right upper quadrant and left upper quadrant Reports upper abdominal pain, diarrhea, Patient currently denies vomiting. : Denies burning with urination. Derm: Skin is intact, is healthy with good turgor. Musculoskeletal: Range of motion: intact in all extremities. Vital Signs: 17:30 BP 109 / 74; Pulse 89; Resp 20; Temp 97.5; Pulse Ox 100% ; Weight 67.13 kg; Height 5 bp ft. 2 in. (157.48 cm); 18:00 BP 112 / 75; Pulse 91; Resp 17; Pulse Ox 96% on R/A; rv 19:00 BP 120 / 98; Pulse 74; Resp 16; Pulse Ox 96% on R/A; rv 20:00 BP 118 / 96; Pulse 76; Resp 17; Temp 98; Pulse Ox 99% on R/A; rv 21:00 BP 116 / 88; Pulse 75; Resp 16; Pulse Ox 100% on R/A; rv 17:30 Body Mass Index 27.07 (67.13 kg, 157.48 cm) bp ED Course: 17:07 Patient arrived in ED. mr 17:08 Jorge L Chamberlain MD is Private Physician. mr 17:29 Triage completed. bp 17:30 Arm band placed on. bp 18:09 Jorge Alberto Cooley MD is Attending Physician. no 18:18 Marcelina Chisholm, ANANYA is Primary Nurse. iw 18:20 Initial lab(s) drawn, by me, sent to lab. Inserted saline lock: 22 gauge in right iw forearm, using aseptic technique. Blood collected. 18:36 XRAY Chest (1 view) In Process Unspecified. EDMS 19:14 Abdomen with Erect XRAY In Process Unspecified. EDMS 20:04 Patient has correct armband on for positive identification. Placed in gown. Bed in low rv position. Call light in reach. Side rails up X 1. Pulse ox on. NIBP on. 21:24 No provider procedures requiring assistance completed. Patient admitted, IV remains in rv place. Administered Medications: 18:38 Drug: NS 0.9% 1000 ml Route: IV; Rate: 125 ml/hr; Site: right forearm; ae4 19:00 Follow up: IV Status: Infusion continued upon transfer iw 18:51 Drug: Dilaudid 1 mg Route: IVP; Site: right forearm; iw 19:22 Follow up: Response: No adverse reaction; Pain is decreased iw 18:52 Drug: Zofran 4 mg Route: IVP; Site: right forearm; iw 19:23 Follow up: Response: No adverse reaction iw 18:52 Drug: Rocephin - (cefTRIAXone) 1 grams Route: IVPB; Infused Over: 30 mins; Site: right iw forearm; 19:00 Follow up: IV Status: Completed infusion iw 18:52 Drug: Flagyl 500 mg Volume: 100 ml; Route: IVPB; Rate: 200 ml/hr; Infused Over: 30 iw mins; Site: right forearm; 21:20 Follow up: IV Status: Completed infusion rv 19:30 Drug: Pepcid 20 mg Route: IVP; Site: right forearm; rv 21:20 Follow up: Response: No adverse reaction rv 21:00 Drug: Dilaudid 1 mg Route: IVP; Site: right forearm; rv 21:25 Follow up: Response: Medication administered at discharge. rv 21:15 Drug: SOLU-Medrol 125 mg Route: IVP; Site: right forearm; rv 21:20 Follow up: Response: Medication administered at discharge. rv Outcome: 18:44 ER care complete, transfer ordered by MD. sarabia 21:24 Transferred by ground EMS to [facility], Transfer form completed. rv X-rays sent w/ patient. 21:24 Condition: good 21:24 Instructed on the need for transfer. 21:26 Patient left the ED. rv Signatures: Dispatcher [employer] EDJorge Alberto Calderon MD MD cha Rivera, Mary mr Williams, Irene, RN RN iw Trav Pollock RN RN bp Vicente, Ronaldo, RN RN Abdias Fisher RN RN ae4
--- NOTE | 2018-11-06 18:45 | EDPHYS ---
Physician Documentation [facility] Name: Angela Rodriguez Age: 48 yrs Sex: Female : 1970 Arrival Date: 11/06/2018 Time: 17:07 Bed 27 Private MD: Jorge L Chamberlain E ED Physician Jorge Alberto Cooley HPI: 11/06 18:37 This 48 yrs old Female presents to ER via Wheelchair with complaints of no Abdominal Pain. 18:37 The patient presents with abdominal pain in the upper abdomen, in the lower abdomen, no abdominal distention in the upper abdomen, in the lower abdomen. Onset: The symptoms/episode began/occurred 10 day(s) ago. The symptoms do not radiate. Associated signs and symptoms: Pertinent positives: diarrhea. The symptoms are described as constant, crampy. Modifying factors: The symptoms are alleviated by nothing, the symptoms are aggravated by nothing. Severity of pain: At its worst the pain was moderate in the emergency department the pain is unchanged. The patient has not experienced similar symptoms in the past. 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 - Social history:: Smoking status: Patient uses tobacco products, smokes one pack cigarettes per day. - Ebola Screening: : No symptoms or risks identified at this time. - Family history:: not pertinent. ROS: 18:37 Constitutional: Negative for fever, chills, and weight loss, Eyes: Negative for injury, no pain, redness, and discharge, ENT: Negative for injury, pain, and discharge, Neck: Negative for injury, pain, and swelling, Cardiovascular: Negative for chest pain, palpitations, and edema, Respiratory: Negative for shortness of breath, cough, wheezing, and pleuritic chest pain, Back: Negative for injury and pain, : Negative for injury, bleeding, discharge, and swelling, MS/Extremity: Negative for injury and deformity, Skin: Negative for injury, rash, and discoloration, Neuro: Negative for headache, weakness, numbness, tingling, and seizure. 18:37 Abdomen/GI: Positive for nausea, vomiting, diarrhea, of the right upper quadrant, left upper quadrant, right lower quadrant and left lower quadrant. Exam: 18:37 Constitutional: This is a well developed, well nourished patient who is awake, alert, no and in no acute distress. Head/Face: Normocephalic, atraumatic. Eyes: Pupils equal round and reactive to light, extra-ocular motions intact. Lids and lashes normal. Conjunctiva and sclera are non-icteric and not injected. Cornea within normal limits. Periorbital areas with no swelling, redness, or edema. ENT: Nares patent. No nasal discharge, no septal abnormalities noted. Tympanic membranes are normal and external auditory canals are clear. Oropharynx with no redness, swelling, or masses, exudates, or evidence of obstruction, uvula midline. Mucous membranes moist. Neck: Trachea midline, no thyromegaly or masses palpated, and no cervical lymphadenopathy. Supple, full range of motion without nuchal rigidity, or vertebral point tenderness. No Meningismus. Chest/axilla: Normal chest wall appearance and motion. Nontender with no deformity. No lesions are appreciated. Cardiovascular: Regular rate and rhythm with a normal S1 and S2. No gallops, murmurs, or rubs. Normal PMI, no JVD. No pulse deficits. Respiratory: Lungs have equal breath sounds bilaterally, clear to auscultation and percussion. No rales, rhonchi or wheezes noted. No increased work of breathing, no retractions or nasal flaring. Back: No spinal tenderness. No costovertebral tenderness. Full range of motion. Female : Normal external genitalia. Skin: Warm, dry with normal turgor. Normal color with no rashes, no lesions, and no evidence of cellulitis. MS/ Extremity: Pulses equal, no cyanosis. Neurovascular intact. Full, normal range of motion. Neuro: Awake and alert, GCS 15, oriented to person, place, time, and situation. Cranial nerves II-XII grossly intact. Motor strength 5/5 in all extremities. Sensory grossly intact. Cerebellar exam normal. Normal gait. Psych: Awake, alert, with orientation to person, place and time. Behavior, mood, and affect are within normal limits. 18:37 Abdomen/GI: Inspection: abdomen appears normal, Bowel sounds: normal, Palpation: moderate abdominal tenderness, Liver: no appreciated palpable abnormalities, Hernia: not appreciated. Vital Signs: 17:30 BP 109 / 74; Pulse 89; Resp 20; Temp 97.5; Pulse Ox 100% ; Weight 67.13 kg; Height 5 bp ft. 2 in. (157.48 cm); 18:00 BP 112 / 75; Pulse 91; Resp 17; Pulse Ox 96% on R/A; rv 19:00 BP 120 / 98; Pulse 74; Resp 16; Pulse Ox 96% on R/A; rv 20:00 BP 118 / 96; Pulse 76; Resp 17; Temp 98; Pulse Ox 99% on R/A; rv 21:00 BP 116 / 88; Pulse 75; Resp 16; Pulse Ox 100% on R/A; rv 17:30 Body Mass Index 27.07 (67.13 kg, 157.48 cm) bp MDM: 18:09 Patient medically screened. [facility] 18:42 Data reviewed: vital signs, nurses notes, lab test result(s), EKG, radiologic studies, [facility] CT scan, plain films. 11/06 18:15 Order name: Basic Metabolic Panel [facility] 11/06 18:15 Order name: CBC with Diff [facility] 11/06 18:15 Order name: LFT's [facility] 11/06 18:15 Order name: Magnesium [facility] 11/06 18:15 Order name: NT PRO-BNP; Complete Time: 19:26 [facility] 11/06 18:15 Order name: PT-INR; Complete Time: 19:05 [facility] 11/06 18:15 Order name: Troponin (emerg Dept Use Only); Complete Time: 19:26 [facility] 11/06 18:15 Order name: Lipase; Complete Time: 19:26 [facility] 11/06 18:15 Order name: Urine Culture [facility] 11/06 18:16 Order name: Basic Metabolic Panel; Complete Time: 19:26 [facility] 11/06 18:16 Order name: CBC with Automated Diff; Complete Time: 18:36 [facility] 11/06 18:16 Order name: Liver (Hepatic) Function; Complete Time: 19:26 [facility] 11/06 18:16 Order name: Magnesium; Complete Time: 19:26 [facility] 11/06 18:15 Order name: XRAY Chest (1 view); Complete Time: 19:26 [facility] 11/06 18:15 Order name: EKG; Complete Time: 18:17 [facility] 11/06 18:15 Order name: Cardiac monitoring; Complete Time: 18:52 [facility] 11/06 18:15 Order name: EKG - Nurse/Tech; Complete Time: 18:53 [facility] 11/06 18:41 Order name: Abdomen with Erect XRAY [facility] 11/06 19:02 Order name: Urine Dipstick--Ancillary (enter results); Complete Time: 19:26 ms 11/06 18:15 Order name: IV Saline Lock; Complete Time: 18:53 [facility] 11/06 18:15 Order name: Labs collected and sent; Complete Time: 18:53 [facility] 11/06 18:15 Order name: O2 Per Protocol; Complete Time: 18:53 [facility] 11/06 18:15 Order name: O2 Sat Monitoring; Complete Time: 18:53 [facility] 11/06 18:15 Order name: Urine Dipstick-Ancillary (obtain specimen); Complete Time: 19:24 [facility] 11/06 18:52 Order name: NPO; Complete Time: 19:19 [facility] Administered Medications: 18:38 Drug: NS 0.9% 1000 ml Route: IV; Rate: 125 ml/hr; Site: right forearm; ae4 19:00 Follow up: IV Status: Infusion continued upon transfer iw 18:51 Drug: Dilaudid 1 mg Route: IVP; Site: right forearm; iw 19:22 Follow up: Response: No adverse reaction; Pain is decreased iw 18:52 Drug: Zofran 4 mg Route: IVP; Site: right forearm; iw 19:23 Follow up: Response: No adverse reaction iw 18:52 Drug: Rocephin - (cefTRIAXone) 1 grams Route: IVPB; Infused Over: 30 mins; Site: right iw forearm; 19:00 Follow up: IV Status: Completed infusion iw 18:52 Drug: Flagyl 500 mg Volume: 100 ml; Route: IVPB; Rate: 200 ml/hr; Infused Over: 30 iw mins; Site: right forearm; 21:20 Follow up: IV Status: Completed infusion rv 19:30 Drug: Pepcid 20 mg Route: IVP; Site: right forearm; rv 21:20 Follow up: Response: No adverse reaction rv 21:00 Drug: Dilaudid 1 mg Route: IVP; Site: right forearm; rv 21:25 Follow up: Response: Medication administered at discharge. rv 21:15 Drug: SOLU-Medrol 125 mg Route: IVP; Site: right forearm; rv 21:20 Follow up: Response: Medication administered at discharge. rv Disposition: 11/06/18 18:44 Transfer ordered to [facility]. Diagnosis are Abdominal tenderness, Diarrhea, unspecified, Crohn's disease [regional enteritis]. - Reason for transfer: Higher level of care. - Accepting physician is to [facility]. - Condition is Fair. - Problem is new. - Symptoms have improved. Signatures: Dispatcher [employer] EDMS Jorge Alberto Cooley MD MD cha Williams, Irene, ANANYA HARE Trav Pollock RN Farooq Khan RN RN Abdias Fisher RN RN ae4 Corrections: (The following items were deleted from the chart) 18:19 18:15 Urine Test ordered. [facility] 21:26 18:44 11/06/2018 18:44 Transfer ordered to [facility]. Diagnosis is rv Abdominal tenderness; Diarrhea, unspecified; Crohn's disease [regional enteritis]. Reason for transfer: Higher level of care. Accepting physician is to [facility], [facility]. Condition is Fair. Problem is new. Symptoms have improved. [facility]
[2018-11-06] MEDS ORDERED: NA CHLORIDE 0.9% 1,000 ML ONE (18:46)
[2018-11-06] MEDS ORDERED: HYDROMORPHONE HCL 1 MG/ML INJ ONE ×2 (18:52→21:08)
[2018-11-06] MEDS ORDERED: ONDANSETRON 4 MG/2 ML VIAL ONE ×2 (18:52→21:23)
[2018-11-06] MEDS ORDERED: CEFTRIAXONE/SWI 1gm 1 GM/10 ML SYR ONE (18:52)
[2018-11-06] MEDS ORDERED: METRONIDAZOLE 500mg IVPB 500 MG/100 ML BAG IV ONE (18:52)
[2018-11-06 19:01] LABS: Protime INR 0.89
[2018-11-06 19:11] LABS: Urine Blood NEGATIVE (NEG); Urine Glucose NEGATIVE (NEG); Urine Protein NEGATIVE (NEG); Urine pH 6.5 (5.0-7.0)
[2018-11-06 19:15] LABS: ALT/SGPT 27 U/L (12-78); AST/SGOT 15 U/L (15-37); Albumin 3.5 g/dL (3.4-5.0); Alkaline Phosphatase 79 U/L (45-117); BUN Blood Urea Nitrogen 15 mg/dL (7-18); Bicarbonate 27 mmol/L (21-32); Bilirubin Direct 0.1 mg/dL (0-0.2); Bilirubin Total 0.3 mg/dL (0.2-1.0); Glucose Level 80 mg/dL (74-106); Lipase 282 U/L (73-393); Magnesium 2.3 mg/dL (1.8-2.4); NT PRO-BNP 24 pg/mL (<125); Potassium 4.3 mmol/L (3.5-5.1); Protein, Total 7.4 g/dL (6.4-8.2); Sodium Level 140 mmol/L (136-145); Troponin (Emerg Dept Use Only) < 0.02 ng/mL (0.0-0.045)
--- NOTE | 2018-11-06 19:16 | RAD REPORT ---
EXAM DESCRIPTION: RAD - Chest Single View - 11/06/2018 6:36 pm CLINICAL HISTORY: Abdominal pain, abdominal distention COMPARISON: June 2018 TECHNIQUE: AP portable chest image was obtained 1832 hours . FINDINGS: Chronic interstitial lung disease is present matching comparison. No focal mass and patien t or acute failure finding. Heart and vasculature are normal. No measurable pleural effusion and no p neumothorax. No acute bony abnormality seen. No acute aortic findings suspected. IMPRESSION: Chronic interstitial lung disease is present similar to comparison. No acute finding noted.
[2018-11-06] MEDS ORDERED: FAMOTIDINE 20 MG/2 ML VIAL IV ONE (19:28)
--- NOTE | 2018-11-06 20:03 | RAD REPORT ---
EXAM DESCRIPTION: RAD - Abdomen W Erect - 11/06/2018 7:13 pm CLINICAL HISTORY: Abdominal pain, diarrhea COMPARISON: CT imaging October 15 TECHNIQUE: Supine and upright views of the abdomen were obtained. FINDINGS: No large or small bowel obstruction seen. No free air or pneumatosis. Cholecystectomy clip s are present in the left upper quadrant. Pain pump or neurostimulator device overlies the right mid abdomen. Numerous phleboliths are seen in pelvis. No suspicious bone finding. IMPRESSION: Abdomen two-view examination shows no obstruction, free air or other acute finding.
[2018-11-06] MEDS ORDERED: METHYLPREDNISOLONE 125 MG INJ ONE (21:33)
[2018-11-06 22:57] VITALS: TEMP 98
[2018-11-06 22:58] VITALS: BP 116/88; O2SAT 100
--- NOTE | 2018-11-07 09:57 | EKG ---
Test Date: 2018-11-06 Test Time: 18:35:28 Hse Specialist: [place] MEASUREMENT RESULTS: Intervals: Rate: 86 [place]: 130 QRSD: 80 QT: 396 QTc: 473 [place]: P: 71 [place]: 130 QRS: 82 T: 69 INTERPRETIVE STATEMENTS: Normal sinus rhythm Normal ECG Compared to ECG 11/22/2017 07:28:30 Sinus arrhythmia no longer present Electronically Signed On 11-07-18 09:55:50 CDT by Andrzej Mcmillan
== END 2018-11-06 21:26 | disposition short-term general hospital (02) ==
LOC: ER 17:07
DX: K50.10 Crohn's disease of large intestine without complications (principal); R19.7 Diarrhea, unspecified; F17.210 Nicotine dependence, cigarettes, uncomplicated; F31.9 Bipolar disorder, unspecified; Z88.1 Allergy status to other antibiotic agents; Z88.8 Allergy status to other drugs, medicaments and biological substances
CPT/HCPCS: 96365; 93005; 87088; 85025; 87086; 80048; 36415; 83735; 85610; 80076; 81003; 84484; 83690; 83880; 74019; 71045; 96375; 99285; 96366; J1170 ×2; J0696; J7030; J2930; J2405 ×2

== ENCOUNTER 2018-11-21 12:13 | Emergency (ER) | payer OTHER ==
--- OUTSIDE RECORDS SUMMARY | 2018-11-21 12:15 | XMS REPORT | Clinical Summary ---
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
--- OUTSIDE RECORDS SUMMARY | 2018-11-21 12:17 | XMS REPORT | Clinical Summary ---
:1970 Author Organization [facility] Address [address] [place] [address] Care Team Providers Name Role Phone Mychal [...] 10 MG tabletIndications: Post Traumatic Stress Disorder mesalamine Take 2,400 mg by 0 Active [...] INNDUCTION DOSE THEN EVERY 8 WEEKS THEREAFTER gabapentin Take 1 capsule 90 capsule 0 08/23/19 Active (NEURONTIN) 300 MG (300 mg total) by 9 20 capsule mouth 3 (three) times daily. hydrocortisone Place rectally 2 30 g 0 07/19/201 07/29/20 Active (ANUSOL-HC) 2.5 % (two) times daily 9 rectal cream for 10 days. hydrocortisone Take 1 tablet (20 30 tablet 0 12/17/19 Active (CORTEF) 20 MG mg total) by mouth 9 19 tablet daily for 30 days. hydrocortisone Take 2 tablets (40 60 tablet 0 12/18/19 Active (CORTEF) 20 MG mg total) by mouth 9 19 tablet every morning for 30 days. Lactobacillus Take 1 tablet by 60 tablet 0 12/17/19 Active acidoph-L.bulgar mouth 2 (two) 9 (FLORANEX) 1 times daily for 30 million cell Tab days. per tablet loperamide Take 1 capsule (2 30 capsule 0 11/27/19 Active (IMODIUM) 2 mg mg total) by mouth 01 17 capsule 4 (four) times daily as needed for Diarrhea for up to 10 days. acetaminophen-code Take 1 tablet by 20 tablet 0 11/24/19 Active ine (TYLENOL #4) mouth every 10 07 18 300-60 mg per (six) hours as tablet needed for Pain for up to 7 days. Max Daily Amount: 4 tablets pantoprazole Take 1 tablet (40 30 tablet 3 12/17/19 Active (PROTONIX) 40 MG mg total) by mouth 9 tabletIndications: daily for 30 days. heartburn, chronic indigestion pantoprazole Take 40 mg by 0 11/17/19 Discontinued (PROTONIX) 40 MG mouth daily. 19 tabletIndications: heartburn, chronic indigestion acetaminophen Take 1,000 mg by 0 07/22/19 Discontinued (TYLENOL) 500 MG mouth every 10 17 tabletIndications: (six) hours as Pain needed for Pain. HYDROcodone-acetam Take 1 tablet by 30 tablet 0 07/22/19 Discontinued inophen (NORCO mouth every 6 01 17 7.5-325) 7.5-325 (six) hours as mg per tablet needed for up to 10 days. Max Daily Amount: 4 tablets predniSONE Take 40mg daily 50 tablet 0 07/24/19 Discontinued (DELTASONE) 20 MG times 2 weeks and 9 19 tablet then 20mg daily times 2 weeks. Further dosing per GI Dr. Huynh. metoclopramide HCl Take 10 mg by 0 11/07/19 Discontinued (REGLAN) 10 MG mouth 4 (four) 19 tablet times daily as needed for Nausea. sulfamethoxazole-t Take 1 tablet by 0 07/22/19 Discontinued rimethoprim mouth 2 (two) 19 (BACTRIM DS) times daily. 800-160 mg per tablet dicyclomine Take 40 mg by 0 11/07/19 Discontinued (BENTYL) 20 mg mouth every 6 19 tablet (six) hours. predniSONE 40mg daily times 3 60 tablet 0 08/18/19 Discontinued (DELTASONE) 10 MG days the 01 17 tablet 15-01-02-20-15-10- 5mg each for 3 days and then [...] 0 08/23/19 Discontinued inophen (NORCO mouth every 10 17 7.5-325) 7.5-325 (six) hours as mg [...] 08/22/19 Discontinued (PROTONIX) 40 MG 19 tablet QUEtiapine TK 1 T PO QHS 0 11/07/19 Discontinued (SEROQUEL) 100 MG 9 tablet celecoxib Take 1 capsule 40 capsule 0 11/07/19 Discontinued (CELEBREX) 100 MG (100 mg total) by 01 17 capsule mouth 2 (two) times daily. clindamycin Take 1 capsule 28 capsule 0 08/24/19 Discontinued (CLEOCIN) 300 MG (300 mg total) by 01 17 capsule mouth every 6 (six) hours for 7 days. gabapentin Take 1 capsule 90 capsule 0 08/24/19 Discontinued (NEURONTIN) 300 MG (300 mg total) by 01 17 capsule mouth 3 (three) times daily. metroNIDAZOLE Take 1 tablet (500 30 tablet 0 08/24/19 Discontinued (FLAGYL) 500 MG mg total) by mouth 01 17 tablet every 8 (eight) hours for 10 days. nicotine (NICODERM Place 1 patch onto 28 patch 0 09/22/19 CQ) 7 mg/24 hr the skin daily for 01 17 patch 30 days. oxyCODONE (OXY-IR) Take 1 tablet (10 30 tablet 0 09/02/19 10 mg tablet mg total) by mouth 01 17 every 4 (four) hours as needed for up to 10 days. Max Daily Amount: [address] 1 patch onto 20 patch 0 09/23/19 (LIDODERM) 5 % the skin daily for 01 17 patch 30 days Remove & Discard patch within 12 hours or as directed by . nicotine (NICODERM Place 1 patch onto 28 patch 0 09/23/19 CQ) 7 mg/24 hr the skin daily for 01 17 patch 30 days. traMADol (ULTRAM) Take 2 tablets 30 tablet 0 09/03/19 50 mg tablet (100 mg total) by 01 17 mouth every 6 (six) hours for 10 days. Max Daily Amount: 400 mg clindamycin Take 1 capsule 56 capsule 0 09/07/19 (CLEOCIN) 300 MG (300 mg total) by 9 19 capsule mouth every 6 (six) hours for 14 days. metroNIDAZOLE Take 1 tablet (500 42 tablet 0 09/07/19 (FLAGYL) 500 MG mg total) by mouth 9 19 tablet every 8 (eight) hours for 14 days. valACYclovir Take 1 tablet 21 tablet 0 11/21/19 (VALTREX) 1000 MG (1,000 mg total) 9 19 tablet by mouth every 8 (eight) hours for 7 days. Active Problems Problem Noted Date Abdominal pain 11/06/2018 Bilateral lower abdominal pain 07/21/2018 Crohn's disease 07/06/2018 SBO (small bowel obstruction) 07/06/2018 Encounters Date Type Specialty Care Team Description 11/12/2018 Surgery Gastroenterology Raegan Jefferson ENDOSCOPY,CAPSULE MD Jade 11/10/2018 Anesthesia Event Gastroenterology James Teixeira MD 11/10/2018 Surgery Gastroenterology Bartolo Quinn COLONOSCOPY,BIOPSY Ghulam 11/07/2018 Travel 11/06/2018 [facility] Cardiology Brann, Generalized abdominal pain; - Encounter Jacques Crohn's disease of small intestine with fistula ( HCC); 11/16/2018 MD Andrzej Vaginal candidiasis; Keanu Norwood K, Bilateral lower abdominal pain; Crohn's disease of small intestine with intestinal obstruction (HCC); Evelyn Alex, Diarrhea, unspecified type; Herpes zoster without complication; Adrenal insufficiency (Garber's disease) (HCC) 09/18/2018 Hospital Computed Tomography Jani Sanchez MD Incisional hernia, Encounter 1, [facility] Jase without obstruction Ct Room or gangrene 09/18/2018 Outside Orders Central Scheduling Jani Sanchez MD Incisional hernia, without obstruction or gangrene (Primary Dx) 09/04/2018 Hospital Radiology Cristela Collins Crohn's disease of both small and large intestine with other complication (HCC); Encounter L, [employer] Intestinal malabsorption, unspecified type; Heavy smoker; History of steroid therapy; Encounter for imaging to assess osteopenia 09/04/2018 Outside Orders Central Scheduling Cristela Collins Crohn's disease of both small and large intestine with other complication (HCC) ( Primary Dx); L, [employer] Intestinal malabsorption, unspecified type; Heavy smoker; History of steroid therapy; Encounter for imaging to assess osteopenia 08/22/2018 Orders Only General Internal Medicine 08/21/2018 Travel 08/20/2018 Anesthesia Event Vj Campbell MD 08/20/2018 Surgery Jani Sanchez MD LAPAROSCOPY,COLECTOMY RIGHT 08/20/2018 [facility] Internal Jani Sanchez MD Crohn's disease of - Encounter Medicine small intestine with 08/23/2018 fistula (HCC) 08/17/2018 [facility] Pre-Admission Testing Resource, [place] Encounter Preadmit Phone 08/16/2018 [facility] Computed Tomography Jani Sanchez MD Crohn's disease with Encounter 1, [facility] Jase intestinal Ct Room obstruction, unspecified gastrointestinal tract location (HCC) 08/07/2018 [facility] Magnetic Resonance Jani Sanchez MD Crohn's disease with Encounter Imaging 1.5, [facility] intestinal Jase Mr obstruction, unspecified gastrointestinal tract location (HCC) 08/07/2018 [facility] Magnetic Resonance System, Provider Crohn's disease with Encounter Imaging Not In intestinal 1.5, [facility] obstruction, Jase Mr unspecified gastrointestinal tract location (HCC) 08/06/2018 Outside Orders Central Scheduling Jani Sanchez MD Crohn's disease with intestinal obstruction, unspecified gastrointestinal tract location (HCC) (Primary Dx) 07/22/2018 Travel 07/20/2018 [facility] Internal FerreiraSantiago hatch Bilateral lower abdominal pain (Primary Dx); - Encounter Medicine MD Jocelyn Nausea and vomiting in adult patient; 07/23/2018 Khushbu George Crohn's disease of small and large intestines with complication (HCC); MD Karishma History of bowel resection; Joana Ramirez, Tobacco abuse; Oral candidiasis; All Johnson MD Uncontrolled pain; Crohn's disease of small intestine with intestinal obstruction (HCC) 07/11/2018 Anesthesia Event Gastroenterology Terri Laughlin MD 07/11/2018 Surgery Gastroenterology King Huynh BIOPSY K., MD 07/10/2018 Travel 07/06/2018 [facility] Internal Shamsee, SBO (small bowel obstruction ) (HCC); - Encounter Medicine Esa-Juan Crohn's disease of both small and large intestine with other complication (HCC); 07/11/2018 MD Donny Smoker; Mayte, Endometriosis; MD Colby Crohn's disease of small intestine with intestinal obstruction (HCC); Daxa Caballero Other chronic pain MD Alex Bruno Umar, MD after 11/20/2017 Family History Medical History Relation Name Comments [...] Vital Sign Reading Time Taken Blood Pressure 109/61 11/16/2018 12:00 PM CDT Pulse 54 11/16/2018 12:00 PM CDT Temperature 36.8 C (98.2 F) 11/16/2018 12:00 PM CDT Respiratory Rate 18 11/16/2018 12:00 PM CDT Oxygen Saturation 98% 11/16/2018 12:00 PM CDT Inhaled Oxygen Concentration 21% 07/06/2018 10:[address] REFEREE Weight 71.1 kg (156 lb 10.9 oz) 11/16/2018 9:00 AM CDT Height 157.5 cm (5' 2.01") 08/20/2018 6:20 AM CDT Body Mass Index 28.65 11/16/2018 9:00 AM CDT Plan of Treatment Not on file Procedures Procedure Name Priority Date/Time Associated Comments Diagnosis REPORT OF PROCEDURE - 11/19/2018 2:52 ENDOSCOPY SCAN PM CDT CBC W/PLT COUNT & Routine 11/16/2018 5:27 Results for this AUTO DIFFERENTIAL AM CDT procedure are in the results section. MAGNESIUM Routine 11/16/2018 5:27 Results for this AM CDT procedure are in the results section. BASIC METABOLIC PANEL Routine 11/16/2018 5:27 Results for this (7) AM CDT procedure are in the results section. CBC W/PLT COUNT & Routine 11/16/2018 5:27 Results for this AUTO DIFFERENTIAL AM CDT procedure are in the results section. CBC W/PLT COUNT & Routine 11/15/2018 5:08 Results for this AUTO DIFFERENTIAL AM CDT procedure are in the results section. MAGNESIUM Routine 11/15/2018 5:08 Results for this AM CDT procedure are in the results section. BASIC METABOLIC PANEL Routine 11/15/2018 5:08 Results for this (7) AM CDT procedure are in the results section. CBC W/PLT COUNT & Routine 11/15/2018 5:08 Results for this AUTO DIFFERENTIAL AM CDT procedure are in the results section. CORTISOL,60 MIN Routine 11/15/2018 1:10 Results for this AM CDT procedure are in the results section. CORTISOL,30 MIN Routine 11/15/2018 12:45 Results for this AM CDT procedure are in the results section. CORTISOL,BASELINE Routine 11/14/2018 6:04 Results for this PM CDT procedure are in the results section. ACTH Routine 11/14/2018 6:04 Results for this PM CDT procedure are in the results section. ACTH STIMULATION Routine 11/14/2018 6:04 Results for this PM CDT procedure are in the results section. CBC W/PLT COUNT & Routine 11/14/2018 1:16 Results for this AUTO DIFFERENTIAL PM CDT procedure are in the results section. MAGNESIUM Routine 11/14/2018 1:16 Results for this PM CDT procedure are in the results section. BASIC METABOLIC PANEL Routine 11/14/2018 1:16 Results for this (7) PM CDT procedure are in the results section. CBC W/PLT COUNT & Routine 11/14/2018 1:16 Results for this AUTO DIFFERENTIAL PM CDT procedure are in the results section. CBC W/PLT COUNT & Routine 11/13/2018 4:36 Results for this AUTO DIFFERENTIAL AM CDT procedure are in the results section. MAGNESIUM Routine 11/13/2018 4:36 Results for this AM CDT procedure are in the results section. BASIC METABOLIC PANEL Routine 11/13/2018 4:36 Results for this (7) AM CDT procedure are in the results section. CBC W/PLT COUNT & Routine 11/13/2018 4:36 Results for this AUTO DIFFERENTIAL AM CDT procedure are in the results section. ENDOSCOPY,CAPSULE 11/12/2018 8:30 Diarrhea, AM CDT unspecified type REPORT OF PROCEDURE - 11/11/2018 2:54 ENDOSCOPY URL PM CDT TISSUE EXAM AP Routine 11/10/2018 3:43 Results for this PM CDT procedure are in the results section. COLONOSCOPY,BIOPSY 11/10/2018 1:00 Diarrhea, PM CDT unspecified type Special Needs REQ: 1000 ACTH Routine 11/09/2018 4:57 AM Results for this CDT procedure are in the results section. CORTISOL Routine 11/09/2018 4:56 AM Results for this CDT procedure are in the results section. BASIC METABOLIC PANEL Routine 11/09/2018 4:56 AM Results for this (7) CDT procedure are in the results section. GI PATHOGEN PROFILE Routine 11/08/2018 2:49 PM Results for this BY PCR CDT procedure are in the results section. OVA AND PARASITE Routine 11/08/2018 2:49 PM Results for this EXAMINATION CDT procedure are in the results section. TSH/FREE T4 IF Routine 11/08/2018 2:59 AM Results for this INDICATED CDT procedure are in the results section. BASIC METABOLIC PANEL Routine 11/08/2018 2:59 AM Results for this (7) CDT procedure are in the results section. XR ABDOMEN 1 VIEW Routine 11/07/2018 1:41 PM Results for this CDT procedure are in the results section. CT ABDOMEN/PELVIS MANASA 11/07/2018 1:39 PM Results for this WITH IV CONTRAST CDT procedure are in the results section. (CELLAVISION MANUAL Routine 11/07/2018 5:54 AM Results for this DIFF) CDT procedure are in the results section. CBC W/PLT COUNT & Routine 11/07/2018 5:54 AM Results for this AUTO DIFFERENTIAL CDT procedure are in the results section. C-REACTIVE PROTEIN Routine 11/07/2018 5:54 AM Results for this CDT procedure are in the results section. CBC W/PLT COUNT & Routine 11/07/2018 5:54 AM Results for this AUTO DIFFERENTIAL CDT procedure are in the results section. BASIC METABOLIC PANEL Routine 11/07/2018 5:54 AM Results for this (7) CDT procedure are in the results section. STOOL PATH CHARGE Routine 11/07/2018 4:41 AM Results for this CDT procedure are in the results section. SHIGA TOXIN SCREEN Routine 11/07/2018 4:41 AM Results for this CDT procedure are in the results section. STOOL CULTURE + SHIGA Routine 11/07/2018 4:41 AM Results for this TOXIN CDT procedure are in the results section. C. DIFFICILE GDH Routine 11/07/2018 4:41 AM Results for this TOXIN CDT procedure are in the results section. CT ABDOMEN/PELVIS Routine 09/18/2018 4:13 PM Incisional hernia, Results for this WITH IV CONTRAST CDT without obstruction procedure are in or gangrene the results section. XR DXA BONE DENSITY Routine 09/04/2018 1:20 PM Crohn's disease of Results for this STUDY CDT both small and large procedure are in intestine with other the results complication (HCC) section. Intestinal malabsorption, unspecified type Heavy smoker History of steroid therapy Encounter for imaging to assess osteopenia RHYTHM STRIP - SCAN 08/27/2018 10:30 AM CDT CBC (HEMOGRAM ONLY) Routine 08/23/2018 6:05 AM Results for this CDT procedure are in the results section. PHOSPHORUS Routine 08/23/2018 6:05 AM Results for this CDT procedure are in the results section. MAGNESIUM Routine 08/23/2018 6:05 AM Results for this CDT procedure are in the results section. BASIC METABOLIC PANEL Routine 08/23/2018 6:05 AM Results for this (7) CDT procedure are in the results section. ECG 12-LEAD Routine 08/22/2018 6:33 AM CDT Procedure Note - Interface, External Ris In - 08/22/2018 6:35 AM CDT Ventricular Rate 123 BPM Atrial Rate 123 BPM P-R Interval 120 ms QRS Duration 84 ms Q-T Interval 314 ms QTC Calculation(Bazett) 449 ms P [place] 37 degrees R [place] 67 degrees T [place] 30 degrees Sinus tachycardia Otherwise normal ECG [...] 07/07/2018 3:30 Results for AUTO DIFFERENTIAL AM [address] [facility] REFEREE this procedure are in the results section. BASIC METABOLIC Routine 07/07/2018 3:30 Results for PANEL (7) AM [address] [facility] REFEREE this procedure are in the results section. CBC W/PLT COUNT & Routine 07/07/2018 3:30 Results for AUTO DIFFERENTIAL AM [facility] [facility] REFEREE this procedure are in the results section. STOOL PATH CHARGE Routine 07/06/2018 6:29 Results for PM [address]FF[address] COURT REFEREE this procedure are in the results section. SHIGA TOXIN SCREEN Routine 07/06/2018 6:29 Results for PM [address] REFEREE this procedure are in the results section. STOOL CULTURE + Routine 07/06/2018 6:29 Results for SHIGA TOXIN PM [address] [facility] REFEREE this procedure are in the results section. C. DIFFICILE GDH Routine 07/06/2018 6:28 Results for TOXIN PM [address] REFEREE this procedure are in the results section. XR CHEST 1 VIEW Routine 07/06/2018 1:20 Results for PORTABLE/BEDSIDE PM [address] REFEREE this procedure are in the results section. BLOOD CULTURE STAT 07/06/2018 11:14 Results for AM [address] REFEREE this procedure are in the results section. LACTIC ACID, VENOUS Routine 07/06/2018 11:13 Results for AM [address] REFEREE this procedure are in the results section. BLOOD CULTURE STAT 07/06/2018 10:50 Results for AM [address] REFEREE this procedure are in the results section. CBC W/PLT COUNT & Routine 07/06/2018 10:49 Results for AUTO DIFFERENTIAL AM [address] [facility] REFEREE this procedure are in the results section. PHOSPHORUS Routine 07/06/2018 10:49 Results for AM [address] REFEREE this procedure are in the results section. MAGNESIUM Routine 07/06/2018 10:49 Results for AM [address] REFEREE this procedure are in the results section. HEPATIC FUNCTION Routine 07/06/2018 10:49 Results for PANEL AM [facility] [facility] REFEREE this procedure are in the results section. BASIC METABOLIC Routine 07/06/2018 10:49 Results for PANEL (7) AM [address] [facility] REFEREE this procedure are in the results section. CBC W/PLT COUNT & Routine 07/06/2018 10:49 Results for AUTO DIFFERENTIAL AM [address] [facility] REFEREE this procedure are in the results section. RAPID DRUG SCREEN, STAT 07/06/2018 10:14 Results for URINE AM [address] REFEREE this procedure are in the results section. URINALYSIS W/ REFLEX Routine 07/06/2018 10:14 Results for URINE CULTURE AM TRA[address] COURT REFEREE this procedure are in the results section. after 11/20/2017 Results EKG-SCANNED (11/19/2018 2:52 PM CDT) Narrative Performed At CBC with platelet count + automated diff (11/16/2018 5:27 AM CDT)Only the most recent of13 resultswithin the time period is included. WBC 7.3 3.5 - 10.5 K/L [facility] RBC 4.15 3.93 - 5.22 M/L [facility] Hemoglobin 12.4 11.2 - 15.7 GM/DL [facility] Hematocrit 38.4 34.1 - 44.9 % [facility] MCV 92.5 79.4 - 94.8 fL [facility] MCH 29.9 25.6 - 32.2 pg [facility] MCHC 32.3 32.2 - 35.5 GM/DL [facility] RDW 14.4 11.7 - 14.4 % [facility] Platelets 275 150 - 450 K/CU MM [facility] MPV 8.9 (L) 9.4 - 12.3 fL [facility] nRBC 0 0 - 0 /100 WBC [facility] % Neutros 49 % [facility] % Lymphs 41 % [facility] % Monos 7 % [facility] % Eos 3 % [facility] % Baso 0 % [facility] # Neutros 3.54 1.56 - 6.13 K/L [facility] # Lymphs 2.99 1.18 - 3.74 K/L [facility] # Monos 0.52 (H) 0.24 - 0.36 K/L [facility] # Eos 0.20 0.04 - 0.36 K/L [facility] # Baso 0.03 0.01 - 0.08 K/L [facility] Immature Granulocytes-Relative 0 0 - 1 % [facility] Specimen Blood Performing Organization Address [facility] Phone Number [address] [address] CENTER Magnesium (11/16/2018 5:27 AM CDT)Only the most recent of10 resultswithin the time period is included. Magnesium 1.8Comment: Specimen 1.6 - 2.6 mg/dL [facility] Spec[facility] Blood Performing Organization Address [facility] Phone Number [address] [address] [phone] CENTER Basic Metabolic Panel (11/16/2018 5:27 AM CDT)Only the most recent of18 resultswithin the time period is included. Sodium 137 136 - 145 meq/L [facility] Potassium 4.5Comment: Specimen 3.5 - 5.1 meq/L [facility] Chloride 109 (H) 98 - 107 meq/L [facility] CO2 19 (L) 22 - 29 meq/L [facility] BUN 9 7 - 21 mg/dL [facility] Creatinine 0.71Comment: Specimen 0.57 - 1.25 mg/dL [facility] moderately hemolyzed [facility] Glucose 85 70 - 105 mg/dL [facility] Calcium 9.0 8.4 - 10.2 mg/dL [facility] EGFR 88Comment: ESTIMATED GFR IS mL/min/1.73 sq m [facility] NOT ACCURATE CREATININE [facility] CLEARANCE IN PREDICTING GLOMERULAR FILTRATION RATE. ESTIMATED GFR IS NOT APPLICABLE FOR DIALYSIS PATIENTS. Specimen Blood Performing Organization Address City/State/Zipcode Phone Number [facility] [address] [place] [address] [phone] CENTER CORTISOL,60 MIN (11/15/2018 1:10 AM CDT) Cortisol, Baseline <1.0 mcg/dL [facility] Cortisol 30 minute 6.0 mcg/dL [facility] Cortisol, 60 Minute 7.0 ug/dL [facility] Specimen Blood Narrative Performed At ACTH STIMULATION TEST INTERPRETATION [facility] GUIDELINES (Synonyms: Cortrosyn Test, Cosyntropin or Corticotropin Stimulation Test) Adenocorticotropic hormone (ACTH)is a tropic hormone, made in the pituitary gland, which travels trhough the bloodstream and stimulates the cortex of the adrenal glands to release cortisol. Cortisol is a primary hormone, which aids the body's metabolism of fats, carbohydrates, and protein as well as sodium and potassium regulation. ACTH Stimulation Test: Exogenous administration of biologically active ACTH stimulates the secretion of cortisol from the adrenal gland. This test is used to evaluate adrenal function by measuring cortisol levels at baseline and at 30 and 60 minutes after the administration of 250 micrograms of cosyntropin (Cortrosyn). Patients who have received exogenous corticosteroids immediately prior to performing the ACTH Stimulation Test will often have elevated baseline cortisol levels, which may lead to erroneous interpretation of test results. The notable exception is with dexamethasone. Normal Response: An increase in cortisol after stimulation by ACTH is normal. Post-stimulation cortisol concentration should be greater than 20 mcg/dL or the rate of rise from baseline cortisol should be greater than or equal to 9 mcg/dL. Patients with sepsis or septic shock: According to a study by Padilla et al (MIGUEL 2000,283(8):1038-45), the ACTH Stimulation Test provides important prognostic information. This study defined 3 groups of patients with sepsis or septic shock: 1. Good Survival: Low basal cortisol (<or=34 mcg/dL) and high ACTH response (>9mcg/dL) 2.Intermediate Survival: Low basal cortisol (<34 mcg/dL) and low response to ACTH (<or=9 mcg/dL) OR High basal cortisol (>34 mcg/dL) or high ACTH response (>9 mcg/dL) 3.Poor Survival: High basal cortisol (>34 mcg/dL) and low ACTH response (<or=9 mcg/dL). Treatment of patients with relative adrenal dysfunction may be indicated based on test results and the clinical condition of the patient. Additional information, including treatment recommendations, is available in critically ill patients, approved by the Pharmacy, Nutrition, and Therapeutics Committee on 04/09/2004 and available through the Pharmacy Policy and Procedure Section on [employer]. Do not run this test if systemic hydrocortisone, methylprednisolone, prednisolone or prednisone has been administered within the past 24 hours.Draw baseline cortisol level just prior to cosyntropin administration.Administer cosyntropin 0.25 mg diluted in 2-5 mL of normal saline slow IV Push over a period of 2 minutes.Draw serum cortisol level 30 minutes after cosyntropin administration.Draw serum cortisol level 60 minutes after cosyntropin administration. Performing Organization Address City/State/Zipcode Phone Number [facility] [address] [place] [address] CENTER CORTISOL,30 MIN (11/15/2018 12:45 AM CDT) Cortisol, Baseline <1.0 mcg/dL [facility] Cortisol, 30 Minute 6.0 ug/dL [facility] Specimen Blood Narrative Performed At ACTH STIMULATION TEST INTERPRETATION [facility] GUIDELINES (Synonyms: Cortrosyn Test, Cosyntropin or Corticotropin Stimulation Test) Adenocorticotropic hormone (ACTH)is a tropic hormone, made in the pituitary gland, which travels trhough the bloodstream and stimulates the cortex of the adrenal glands to release cortisol. Cortisol is a primary hormone, which aids the body's metabolism of fats, carbohydrates, and protein as well as sodium and potassium regulation. ACTH Stimulation Test: Exogenous administration of biologically active ACTH stimulates the secretion of cortisol from the adrenal gland. This test is used to evaluate adrenal function by measuring cortisol levels at baseline and at 30 and 60 minutes after the administration of 250 micrograms of cosyntropin (Cortrosyn). Patients who have received exogenous corticosteroids immediately prior to performing the ACTH Stimulation Test will often have elevated baseline cortisol levels, which may lead to erroneous interpretation of test results. The notable exception is with dexamethasone. Normal Response: An increase in cortisol after stimulation by ACTH is normal. Post-stimulation cortisol concentration should be greater than 20 mcg/dL or the rate of rise from baseline cortisol should be greater than or equal to 9 mcg/dL. Patients with sepsis or septic shock: According to a study by Padilla et al (MIGUEL 2000,283(8):1038-45), the ACTH Stimulation Test provides important prognostic information. This study defined 3 groups of patients with sepsis or septic shock: 1. Good Survival: Low basal cortisol (<or=34 mcg/dL) and high ACTH response (>9mcg/dL) 2.Intermediate Survival: Low basal cortisol (<34 mcg/dL) and low response to ACTH (<or=9 mcg/dL) OR High basal cortisol (>34 mcg/dL) or high ACTH response (>9 mcg/dL) 3.Poor Survival: High basal cortisol (>34 mcg/dL) and low ACTH response (<or=9 mcg/dL). Treatment of patients with relative adrenal dysfunction may be indicated based on test results and the clinical condition of the patient. Additional information, including treatment recommendations, is available in critically ill patients, approved by the Pharmacy, Nutrition, and Therapeutics Committee on 04/09/2004 and available through the Pharmacy Policy and Procedure Section on The Source. Do not run this test if systemic hydrocortisone, methylprednisolone, prednisolone or prednisone has been administered within the past 24 hours.Draw baseline cortisol level just prior to cosyntropin administration.Administer cosyntropin 0.25 mg diluted in 2-5 mL of normal saline slow IV Push over a period of 2 minutes.Draw serum cortisol level 30 minutes after cosyntropin administration.Draw serum cortisol level 60 minutes after cosyntropin administration. Performing Organization Address City/State/Zipcode Phone Number [facility] [address] [place] [address] [phone] CENTER CORTISOL,BASELINE (11/14/2018 6:04 PM CDT) Cortisol, Baseline <1.0 ug/dL [facility] Specimen Blood Narrative Performed At ACTH STIMULATION TEST INTERPRETATION [facility] GUIDELINES (Synonyms: Cortrosyn Test, Cosyntropin or Corticotropin Stimulation Test) Adenocorticotropic hormone (ACTH)is a tropic hormone, made in the pituitary gland, which travels trhough the bloodstream and stimulates the cortex of the adrenal glands to release cortisol. Cortisol is a primary hormone, which aids the body's metabolism of fats, carbohydrates, and protein as well as sodium and potassium regulation. ACTH Stimulation Test: Exogenous administration of biologically active ACTH stimulates the secretion of cortisol from the adrenal gland. This test is used to evaluate adrenal function by measuring cortisol levels at baseline and at 30 and 60 minutes after the administration of 250 micrograms of cosyntropin (Cortrosyn). Patients who have received exogenous corticosteroids immediately prior to performing the ACTH Stimulation Test will often have elevated baseline cortisol levels, which may lead to erroneous interpretation of test results. The notable exception is with dexamethasone. Normal Response: An increase in cortisol after stimulation by ACTH is normal. Post-stimulation cortisol concentration should be greater than 20 mcg/dL or the rate of rise from baseline cortisol should be greater than or equal to 9 mcg/dL. Patients with sepsis or septic shock: According to a study by Padilla et al (MIGUEL 2000,283(8):1937-45), the ACTH Stimulation Test provides important prognostic information. This study defined 3 groups of patients with sepsis or septic shock: 1. Good Survival: Low basal cortisol (<or=34 mcg/dL) and high ACTH response (>9mcg/dL) 2.Intermediate Survival: Low basal cortisol (<34 mcg/dL) and low response to ACTH (<or=9 mcg/dL) OR High basal cortisol (>34 mcg/dL) or high ACTH response (>9 mcg/dL) 3.Poor Survival: High basal cortisol (>34 mcg/dL) and low ACTH response (<or=9 mcg/dL). Treatment of patients with relative adrenal dysfunction may be indicated based on test results and the clinical condition of the patient. Additional information, including treatment recommendations, is available in critically ill patients, approved by the Pharmacy, Nutrition, and Therapeutics Committee on 04/09/2004 and available through the Pharmacy Policy and Procedure Section on The Source. Do not run this test if systemic hydrocortisone, methylprednisolone, prednisolone or prednisone has been administered within the past 24 hours.Draw baseline cortisol level just prior to cosyntropin administration.Administer cosyntropin 0.25 mg diluted in 2-5 mL of normal saline slow IV Push over a period of 2 minutes.Draw serum cortisol level 30 minutes after cosyntropin administration.Draw serum cortisol level 60 minutes after cosyntropin administration. Performing Organization Address City/State/Zipcode Phone Number [facility] MEDICAL [address] [place] [address] [phone] CENTER ACTH (11/14/2018 6:04 PM CDT)Only the most recent of2 resultswithin the time period is included. ACTH 10 6 - 50 pg/mL [facility] Comment: Reference range applies only to the specimens collected between 7am-10am. Specimen Blood Narrative Performed At Performing Lab [facility] [address] [address] Cassandra Avila MD, PhD, RICK Performing Organization Address City/[facility] Cent[facility] Phone Number [place] [address] [address] [place] [address] REPORT OF PROCEDURE - ENDOSCOPY URL (11/11/2018 2:54 PM CDT) Narrative Performed At Tissue Exam (11/10/2018 3:43 PM CDT)Only the most recent of3 resultswithin the time period is included. Case Report Surgical Pathology Report Case: [id number] [facility] Authorizing Provider:Bartolo Quinnected: 11/10/2018 1543 MEDICAL CENTER Ordering Location: [address] Received: 11/12/2018 0813 Service Pathologist: Linda Mullen MD Specimens: A) - Biopsy, Terminal Ileum, Neoterminal Ileum biopsy B) - Ileum, Ileocolonic Anastomosis biopsy C) - Large Intestine, Colon - Right/Ascending, Right colon biopsy D) - Large Intestine, Colon - Transverse, Transverse colon biopsy E) - Large Intestine, Colon - Left/Descending, Left colon biopsy DIAGNOSIS A. NEOTERMINAL ILEUM, BIOPSY: [facility] - SUPERFICIAL FRAGMENTS OF ILEAL MUCOSA WITH NORMAL VILLOUS ARCHITECTURE AND NO MEDICAL CENTER SIGNIFICANT DIAGNOSTIC ABNORMALITY (SEE COMMENT) B. ILEOCOLONIC ANASTOMOSIS, BIOPSY: - ENTERIC MUCOSA WITH CHANGES CONSISTENT WITH ANASTOMOSIS SITE RELATED CHANGES C. COLON, RIGHT/ASCENDING, BIOPSY: - COLONIC MUCOSA WITH NO SIGNIFICANT DIAGNOSTIC ABNORMALITY D. COLON, TRANSVERSE, BIOPSY: - COLONIC MUCOSA WITH NO SIGNIFICANT DIAGNOSTIC ABNORMALITY E. COLON, LEFT/DESCENDING, BIOPSY: - COLONIC MUCOSA WITH RARE CRYPT DISTORTION Signing Pathologist Direct Phone Line: [phone] COMMENT Patient's history of [facility] Crohn's disease is noted. MEDICAL CENTER The current sampling shows no significant active or chronic colitis. This may represent complete histologic resolution following treatment. Clinical and endoscopic correlation is recommended. CPT Code(s) 50169E2 [facility] CLINICAL HISTORY Pre and postop diagnosis: [facility] diarrhea [facility] SPECIMEN SOURCE A. Neoterminal ileum [facility] biopsy; [facility]; C. Right colon biopsy; D. Transverse colon biopsy; E. Left colon biopsy GROSS DESCRIPTION A. Received in formalin labeled with the patient's name, accession number and "biopsy, terminal ileum" are four irregular rodriguez soft tissue fragments ranging 0.2-0.4 cm which are submitted in toto in A1. [facility] B. Received in formalin labeled with the patient's name, accession number and "ileum" are multiple rodriguez-soft tissue fragments ranging 0.1-0.2 cm which are submitted in toto in B1. C. Received in formalin labeled with the patient's name, accession number and "large intestine, colon - right ascending" are four irregular rodriguez soft tissue fragment ranging 0.2-0.3 cm which are submitted in toto in C1. D. Received in formalin labeled with the patient's name, accession number and "large intestine, colon - transverse" are four irregular rodriguez soft tissue fragments ranging 0.2-0.3 cm which are submitted in toto in D1. E. .Received in formalin labeled with the patient's name, accession number and "large intestine, colon - left/descending" are four irregular rodriguez soft tissue fragments ranging 0.2-0.6 cm which are submitted in toto in E1. CG/pl MICROSCOPIC DESCRIPTION Performed. [facility] Specimen Tissue - Biopsy, Terminal Ileum Tissue - Ileal structure (body structure) Tissue - Ascending colon structure (body structure) Tissue - Transverse colon structure (body structure) Tissue - Descending colon structure (body structure) Performing Organization Address [facility] Centercode Phone Number [address] [address] [place] Cortisol (11/09/2018 4:56 AM CDT) Cortisol, Total <1.0 (L) 3.7 - 19.4 ug/dL [facility] Specimen Blood Performing Organization Address City/[facility]/Zipcode Phone Number [address] [address] [place] GI Pathogen Profile by PCR -ID Only (11/08/2018 2:49 PM CDT) CAMPYLOBACTER (PCR) Not detected Not detected [facility] PLESIOMONAS SHIGELLOIDES (PCR) Not detected Not detected [facility] SALMONELLA (PCR) Not detected Not detected [facility] YERSINIA ENTEROCOLITICA (PCR) Not detected Not detected [facility] VIBRIO CHOLERAE (PCR) Not detected Not detected [facility] ENTEROAGGREGATIVE E. COLI (EAEC) Not detected Not detected [facility] BY PCR MEDICAL [place] ENTEROPATHOGENIC E. COLI (EPEC) BY Not detected Not detected [facility] PCR MEDICAL [place] ENTEROTOXIGENIC E. COLI (ETEC) Not detected Not detected [facility] LT/ST BY PCR MEDICAL [place] SHIGA-LIKE TOXIN-PRODUCING E. COLI Not detected Not detected [facility] (STEC) STX1/STX2 [facility] E. COLI O157 (PCR) Not detected [facility] SHIGELLA/ENTEROINVASIVE E. COLI Not detected Not detected [facility] (EIEC) BY PCR [facility] CRYPTOSPORIDIUM (PCR) Not detected Not detected [facility] CYCLOSPORA CAYETANENSIS (PCR) Not detected Not detected [facility] ENTAMOEBA HISTOLYTICA (PCR) Not detected Not detected [facility] GIARDIA LAMBLIA (PCR) Not detected Not detected [facility] ADENOVIRUS F 40/41 (PCR) Not detected Not detected [facility] ASTROVIRUS (PCR) Not detected Not detected [facility] NOROVIRUS GI/GII (PCR) Not detected Not detected [facility] ROTAVIRUS A (PCR) Not detected Not detected [facility] SAPOVIRUS (I, II, IV, V) BY PCR Not detected Not detected [facility] VIBRIO (PARAHAEMOLYTICUS, Not detected Not detected [facility] VULNIFICUS) [facility] Specimen Stool Narrative Performed At Other viruses, parasites and bacteria not [facility] targeted by this PCR panel cannot be excluded; therefore clinical correlation and follow up of serology, culture results, and other molecular studies is required. The results are not intended to be used as the sole means for clinical diagnosis or patient management decisions. This sample was tested at the [facility] Molecular Diagnostics Laboratory using the [employer] Gastrointestinal Panel. It is FDA cleared and has been verified and approved by the [facility] Molecular Diagnostics Laboratory for clinical use. This laboratory is CLIA-certified and [employer] (CAP)-accredited to perform high complexity testing. Performing Organization Address City/State/Zipcode Phone Number [facility] [address] [place] [address] CENTER Ova and Parasite Examination (11/08/2018 2:49 PM CDT) O&P Direct Smear No ova or parasites No ova or parasites [facility] seen seen [facility] O&P Concentrate Smear No ova or parasites No ova or parasites [facility] seen seen [facility] O&P Trichrome Smear No ova or parasites No ova or parasites [facility] seen seen [facility] Specimen Stool Narrative Performed At Performing Organization Address City/State/Zipcode Phone Number [address] [phone] [place] TSH/Free T4 If Indicated (11/08/2018 2:59 AM CDT) TSH 2.84 0.35 - 4.94 uIU/mL [facility] Specimen Blood Performing Organization Address [facility]/Zipcode Phone Number [address] [address] [place] XR abdomen / KUB 1 view (11/07/2018 1:41 PM CDT) Specimen Narrative Performed At FINAL REPORT [facility] Abdomen dated November 07, 2018 Comment: Abdomen was examined in the supine frontal position. Residual barium is noted in the large bowel. Air is seen in the small and large bowel without dilatation to suggestmechanical obstruction or ileus.No mass, pathological calcification, or free air is present. Surgical clips are seen in the right upper quadrant abdomen from prior cholecystectomy. Phleboliths are seen in the pelvis. Impression: No mechanical obstruction or ileus. Signed: Kehinde Zaman MD Report Verified Date/Time:11/07/2018 14:37:57 Reading Location: [address] Consult Reading Room Procedure Note Interface, External Ris In - 11/07/2018 2:40 PM CDT FINAL REPORT Abdomen dated November 07, 2018 Comment: Abdomen was examined in the supine frontal position. Residual barium is noted in the large bowel. Air is seen in the small and large bowel without dilatation to suggest mechanical obstruction or ileus. No mass, pathological calcification, or free air is present. Surgical clips are seen in the right upper quadrant abdomen from prior cholecystectomy. Phleboliths are seen in the pelvis. Impression: No mechanical obstruction or ileus. Signed: Kehinde Zaman MD Report Verified Date/Time: 11/07/2018 14:37:57 Reading Location: [facility] B1 C013W Consult Reading Room Performing Organization Address City/State/Zipcode Phone Number [employer] CT abdomen/pelvis with IV contrast (11/07/2018 1:39 PM CDT)Only the most recent of3 resultswithin the time period is included. Specimen Narrative Performed At FINAL REPORT [employer] TECHNIQUE: CT of the abdomen and pelvis WITH intravenous contrast and WITH oral contrast. Dose modulation, iterative reconstruction, and/or weight-based adjustment of the mA/kV was utilized to reduce the radiation dose to as low as reasonably achievable. INDICATION: 48-year-old woman with abdominal pain. COMPARISON: Abdomen and pelvis CT 09/18/2018. FINDINGS: LOWER THORAX: Unremarkable. HEPATOBILIARY: No focal hepatic lesions. Prior cholecystectomy. No biliary ductal dilatation. SPLEEN: No splenomegaly. PANCREAS: No focal masses or ductal dilatation. ADRENALS: No adrenal nodules. KIDNEYS/URETERS: No hydronephrosis or stones. Unchanged 1 cm bilateral renal cysts. Unchanged 3.3 x 3.5 cm hypodensity in the left upper pole with density greater than simple fluid and a thin subcentimeter mural calcification. PELVIC ORGANS/BLADDER: Prior hysterectomy. No adnexal mass. The bladder is unremarkable. PERITONEUM/RETROPERITONEUM: Increased ill-defined inflammatory change in the right abdomen adjacent to the ileocolic anastomosis contains a new tiny focus of air. No free fluid. LYMPH NODES: No lymphadenopathy. VESSELS: Unremarkable. GI TRACT: Prior right hemicolectomy with anastomosis. No distention or wall thickening. BONES AND SOFT TISSUES: Osteopenia. Degenerative changes of the visualized spine. Unchanged mild compression deformities of the L1 and L2 vertebral bodies without significant retropulsion. Unchanged implanted device in the soft tissues of the left abdominal wall with an intact epidural lead which terminates at the level of the lower thoracic spine. IMPRESSION: Increased ill-defined inflammatory change adjacent to the ileocolic anastomosis which contains a tiny focus of air may represent phlegmonous change. Bowel leak is unlikely. No discrete fluid collections. Unchanged 3.5 cm hypodensity in the upper left kidney, likely a debris-containing cyst. Abdomen CT with and without intravenous contrast (renal mass protocol) may be obtained for definitive characterization. Signed: Cj Lowery MD Report Verified Date/Time:11/07/2018 14:25:25 Reading Location: [facility] C013Y CT Body Reading Room Procedure Note Interface, External Ris In - 11/07/2018 2:27 PM CDT FINAL REPORT TECHNIQUE: CT of the abdomen and pelvis WITH intravenous contrast and WITH oral contrast. Dose modulation, iterative reconstruction, and/or weight-based adjustment of the mA/kV was utilized to reduce the radiation dose to as low as reasonably achievable. INDICATION: 48-year-old woman with abdominal pain. COMPARISON: Abdomen and pelvis CT 09/18/2018. FINDINGS: LOWER THORAX: Unremarkable. HEPATOBILIARY: No focal hepatic lesions. Prior cholecystectomy. No biliary ductal dilatation. SPLEEN: No splenomegaly. PANCREAS: No focal masses or ductal dilatation. ADRENALS: No adrenal nodules. KIDNEYS/URETERS: No hydronephrosis or stones. Unchanged 1 cm bilateral renal cysts. Unchanged 3.3 x 3.5 cm hypodensity in the left upper pole with density greater than simple fluid and a thin subcentimeter mural calcification. PELVIC ORGANS/BLADDER: Prior hysterectomy. No adnexal mass. The bladder is unremarkable. PERITONEUM/RETROPERITONEUM: Increased ill-defined inflammatory change in the right abdomen adjacent to the ileocolic anastomosis contains a new tiny focus of air. No free fluid. LYMPH NODES: No lymphadenopathy. VESSELS: Unremarkable. GI TRACT: Prior right hemicolectomy with anastomosis. No distention or wall thickening. BONES AND SOFT TISSUES: Osteopenia. Degenerative changes of the visualized spine. Unchanged mild compression deformities of the L1 and L2 vertebral bodies without significant retropulsion. Unchanged implanted device in the soft tissues of the left abdominal wall with an intact epidural lead which terminates at the level of the lower thoracic spine. IMPRESSION: Increased ill-defined inflammatory change adjacent to the ileocolic anastomosis which contains a tiny focus of air may represent phlegmonous change. Bowel leak is unlikely. No discrete fluid collections. Unchanged 3.5 cm hypodensity in the upper left kidney, likely a debris-containing cyst. Abdomen CT with and without intravenous contrast (renal mass protocol) may be obtained for definitive characterization. Signed: Cj Lowery MD Report Verified Date/Time: 11/07/2018 14:25:25 Reading Location: [facility] B1 C013Y CT Body Reading Room Performing Organization Address City/State/Zipcode Phone Number GE RIS Manual Differential (11/07/2018 5:54 AM CDT) % Neutros 83 % [facility] % Lymphs 13 % [facility] % Monos 4 % [facility] # Neutros 5.89 1.56 - 6.13 K/ul [facility] # Lymphs 0.92 (L) 1.18 - 3.74 K/ul [facility] # Monos 0.28 0.24 - 0.36 K/uL [facility] Total Counted 100 [facility] RBC Morphology Normal [facility] WBC Morphology Normal [facility] Platelet Morphology Normal [facility] Artifact Present [facility] Platelet Conc Adequate [facility] Specimen Blood Narrative Performed At Received comment: [facility] User comments: Slide comments: Performing Organization Address City/[facility] Centercode Phone Number [facility] [address] [place] [address] [phone] CENTER C-Reactive Protein (11/07/2018 5:54 AM CDT)Only the most recent of2 resultswithin the time period is included. CRP 0.37 0.00 - 0.50 mg/dL [facility] Specimen Blood Performing Organization Address City/[facility]/Zipcode Phone Number [facility] [address] [place] Clostridium difficile [facility] Toxin (11/07/2018 4:41 AM CDT)Only the most recent of3 resultswithin the time period is included. C. Difficle Toxin Negative Negative [facility] C. Difficile [facility] Antigen NegativeComment: No Negative [facility] indication of Clostridium [facility] difficile infection and no colonization. Discontinue enteric isolation and therapy. Specimen Stool Narrative Performed At Testing performed by [employer] [facility] Assay.For [facility], published sensitivity of the assay is 98.7% compared to cytotoxicity testing.For Toxin AB, published sensitivity is 87.8% and specificity 99.4% compared to cytotoxicity testing. Verification of kit performance was done by the [facility] Microbiology Lab prior to clinical use. Performing Organization Address City/[facility] Centercode Phone Number [address] [phone] [place] STOOL PATH CHARGE (11/07/2018 4:41 AM CDT)Only the most recent of3 resultswithin the time period is included. Pathogen exam charged Done [facility] Specimen Stool Performing Organization Address [facility] Centercode Phone Number [address] [address] [phone] [place] Shiga Toxin Screen (11/07/2018 4:41 AM CDT)Only the most recent of3 resultswithin the time period is included. Shiga toxin 1 Not detected Not detected [facility] Shiga toxin 2 Not detected Not detected [facility] Specimen Stool Performing Organization Address [facility]/Zipcode Phone Number [address] [phone] [place] Stool culture + Shiga toxin (11/07/2018 4:41 AM CDT)Only the most recent of3 resultswithin the time period is included. Result No Salmonella, Shigella or [facility] Specimen Stool Performing Organization Address City/State/Zipcode Phone Number [facility] [address] [place] [address] CENTER XR DXA Bone Density Study (09/04/2018 1:20 PM CDT) Specimen Narrative Performed At FINAL REPORT [facility] Exam: Bone mineral density study. History:Osteopenia. Comparison:None [...] for bone mineral density as provided by sales and service specialist is 0.023 g/cm2 for lumbar spine and [...] next bone mineral density study. Signed: Art Medina MD Report Verified Date/Time:09/04/2018 13:22:29 Procedure Note [...] for bone mineral density as provided by sales and service specialist is 0.023 g/cm2 for lumbar spine and [...] next bone mineral density study. Signed: Art Medina MD Report Verified Date/Time: 09/04/2018 13:22:29 Performing Organization Address City/State/Zipcode Phone Number [employer] RHYTHM STRIP - SCAN (08/27/2018 10:30 AM CDT) Narrative Performed At CBC (Hemogram only) (08/23/2018 6:05 AM CDT)Only the most recent of3 resultswithin the time period is included. WBC 5.5 3.5 - 10.5 K/L [facility] RBC 3.31 (L) 3.93 - 5.22 M/L [facility] Hemoglobin 10.4 (L) 11.2 - 15.7 GM/DL [facility] Hematocrit 34.9 34.1 - 44.9 % [facility] MCV 105.4 (H) 79.4 - 94.8 fL [facility] MCH 31.4 25.6 - 32.2 pg [facility] MCHC 29.8 (L) 32.2 - 35.5 GM/DL [facility] RDW 15.4 (H) 11.7 - 14.4 % [facility] Platelets 185 150 - 450 K/CU MM [facility] MPV 8.9 (L) 9.4 - 12.3 fL [facility] nRBC 0 0 - 0 /100 WBC [facility] Specimen Blood Performing Organization Address City/[facility] Phone Number [facility] [address] [place] [address] CENTER Phosphorus (08/23/2018 6:05 AM CDT)Only the most recent of6 resultswithin the time period is included. Phosphorus 2.9 2.3 - 4.7 mg/dL [facility] Specimen Blood Performing Organization Address [facility] Centerc[facility]i Phone Number [address] [address] [place] ECG 12 lead (08/22/2018 6:33 AM CDT) Specimen Narrative Performed At Ventricular Rate 123 BPM GE MUSE Atrial Rate 123 BPM P-R Interval 120 ms QRS Duration 84 ms Q-T Interval 314 ms QTC Calculation(Bazett) 449 ms P [place] 37 degrees R [place] 67 degrees T [place] 30 degrees Sinus tachycardia Otherwise normal ECG No previous ECGs available Confirmed by Sg Moore ([id number]) on 08/23/2018 11:22:03 AM Procedure Note Interface, External Ris In - 08/23/2018 11:22 AM CDT Ventricular Rate 123 BPM Atrial Rate 123 BPM P-R Interval 120 ms QRS Duration 84 ms Q-T Interval 314 ms QTC Calculation(Bazett) 449 ms P [place] 37 degrees R [place] 67 degrees T [place] 30 degrees Sinus tachycardia Otherwise normal ECG No previous ECGs available Confirmed by Sg Moore ([id number]) on 08/23/2018 11:22:03 AM Performing Organization Address City/[facility] Centercode Phone Number [employer] TRANSFUSION SERVICE REPORT - SCAN (08/21/2018 6:11 PM CDT)Only the most recent of2 resultswithin the time period is included. Narrative Performed At POC-Glucose meter (08/20/2018 11:35 AM CDT)Only the most recent of7 resultswithin the time period is included. POC-Glucose Meter 129 (H)Comment: TESTED AT 70 - 110 mg/dL [facility] [address] [facility] [id number] Specimen Blood Performing Organization Address City/State/Zipcode Phone Number [address] [address] CENTER ANESTHESIA SPINAL BLOCK (08/20/2018 8:20 AM CDT) Narrative Performed At Marta Parson MD 08/27/2018 12:18 PM Spinal Block Patient location during procedure: OR Start time: 08/20/2018 8:12 AM End time: 08/20/2018 8:18 AM Procedure Indication: procedure for pain, at surgeon's request and post-op pain management Staffing Anesthesiologist: Marta Parson MD Resident/HEARING AID SPECIALIST: Abdias Worthington Preanesthetic Checklist Completed: patient identified, [...] pain management Staffing Anesthesiologist: Marta Parson MD Resident/HEARING AID SPECIALIST: Abdias Worthington Preanesthetic Checklist Completed: patient identified, [...] is included. ABO/RH AUTOMATED (BEAKER) A POSITIVE [facility] Ab Scrn NEGATIVE [facility] Specimen Blood Performing Organization Address City/State/Zipcode Phone Number [facility] [address] [place] [address] [phone] Hepatic function panel (07/23/2018 4:50 AM CDT)Only the most recent of3 resultswithin the time period is included. Protein, Total 6.3 6.0 - 8.3 gm/dL [facility] Albumin 3.9 3.5 - 5.0 g/dL [facility] Total Bilirubin 0.3 0.2 - 1.2 mg/dL [facility] Bilirubin, Direct 0.1 0.1 - 0.5 mg/dL [facility] Alkaline Phosphatase 68 40 - 150 U/L [facility] AST 23 5 - 34 U/L [facility] ALT 41 6 - 55 U/L [facility] Specimen Blood Performing Organization Address City/State/Zipcode Phone Number [facility] [address] [place], [place] [address] [phone] [place] Prealbumin (07/22/2018 4:44 AM CDT) Prealbumin 36 14 - 45 mg/dL [facility] Specimen Blood Performing Organization Address City/[facility]/Zipcode Phone Number [address] [address] abdomen pelvis without contrast (07/21/2018 3:48 AM CDT) Specimen Narrative Performed At FINAL REPORT [employer] [facility] CLINICAL HISTORY: Acute abdominal pain, history of [...] MD Report Verified Date/Time:07/21/2018 04:05:05 Reading Location: [address] Reading Room Procedure Note Interface, External [...] Report Verified Date/Time: 07/21/2018 04:05:05 Reading Location: [address] Reading Room Performing Organization Address City/State/Zipcode Phone Number GE RIS POCT , urine (07/20/2018 10:51 PM CDT) Test Urine, POC Negative Control line present?, POC Yes Background clear?, POC No=Invalid Patient Result UPT Cassette Lot #, POC [id number] UPT Cassette Expiration Date, POC 11/29/2019 Specimen Urine ABORH, manual (07/20/2018 10:48 PM CDT) ABO Grouping A [facility] Rh Factor POS [facility] Specimen Blood Performing Organization Address City/[facility] Centercode Phone Number [facility] [address] [place] [phone] PTT (aPTT) (07/20/2018 9:32 PM CDT) PTT 24.6 22.5 - 36.0 seconds [facility] Specimen Blood Performing Organization Address [facility] Centercode Phone Number [address] [address] CENTER PT/INR (07/20/2018 9:32 PM CDT) Protime 13.2 11.7 - 14.7 seconds [facility] INR 1.0 <=5.9 [facility] Specimen Blood Narrative Performed At RECOMMENDED COUMADIN/WARFARIN INR THERAPY [facility] RANGES STANDARD DOSE: 2.0 - 3.0 Includes: PROPHYLAXIS for venous thrombosis, systemic embolization; TREATMENT for venous thrombosis and/or pulmonary embolus. HIGH RISK: Target INR is 2.5-3.5 for patients with mechanical heart valves. Performing Organization Address [facility] Phone Number [address] [address] [phone] CENTER Lipase (07/20/2018 9:32 PM CDT) Lipase 12 8 - 78 U/L [facility] Specimen Blood Performing Organization Address [facility] Centercode Phone Number [address] [address] CENTER Comprehensive metabolic panel (07/20/2018 9:32 PM CDT) Protein, Total 5.6 (L) 6.0 - 8.3 gm/dL [facility] Albumin 3.5 3.5 - 5.0 g/dL [facility] Alkaline Phosphatase 54 40 - 150 U/L [facility] Total Bilirubin 0.2 0.2 - 1.2 mg/dL [facility] Sodium 143 136 - 145 meq/L [facility] Potassium 3.9 3.5 - 5.1 meq/L [facility] Chloride 106 98 - 107 meq/L [facility] CO2 27 22 - 29 meq/L [facility] BUN 12 7 - 21 mg/dL [facility] Creatinine 0.76 0.57 - 1.25 mg/dL [facility] Glucose 84 70 - 105 mg/dL [facility] Calcium 8.5 8.4 - 10.2 mg/dL [facility] AST 13 5 - 34 U/L [facility] ALT 27 6 - 55 U/L [facility] EGFR 82Comment: ESTIMATED GFR mL/min/1.73 sq m [facility] IS NOT ACCURATE [facility] CREATININE CLEARANCE IN PREDICTING GLOMERULAR FILTRATION RATE. ESTIMATED GFR IS NOT APPLICABLE FOR DIALYSIS PATIENTS. Specimen Blood Performing Organization Address City/State/Zipcode Phone Number [facility] [address] [place] [address] [phone] CENTER REPORT OF PROCEDURE - ENDOSCOPY URL (07/11/2018 9:45 AM CDT) Narrative Performed At CT abdomen & pelvis - enterography (07/08/2018 6:32 AM CDT) Specimen Narrative Performed At FINAL REPORT [employer] INDICATION: Abdominal pain and history of Crohn's [...] MD Report Verified Date/Time:07/08/2018 14:17:31 Reading Location: [facility] C013X Ortho Consult Reading Room [...] Report Verified Date/Time: 07/08/2018 14:17:31 Reading Location: [facility] B1 C013X Ortho Consult Reading Room Performing Organization Address City/[facility] Phone Number [employer] XR chest 1 view portable / bedside (07/06/2018 1:[address] REFEREE) Specimen Narrative Performed At FINAL REPORT [employer] TECHNIQUE: Frontal chest radiograph dated 07/06/2018. CLINICAL HISTORY: Fever COMPARISON STUDY: None IMPRESSION: Lungs are clear. No pleural effusion or pneumothorax. Cardiomediastinal silhouette is normal in size. No pulmonary edema. No fracture. Signed: Xiao Mckinney MD Report Verified Date/Time:07/06/2018 14:21:04 Reading Location: [facility] Radiology Reading Room Procedure Note Interface, External Ris In - 07/06/2018 2:[address] REFEREE FINAL REPORT TECHNIQUE: Frontal chest radiograph dated 07/06/2018. CLINICAL HISTORY: Fever COMPARISON STUDY: None IMPRESSION: Lungs are clear. No pleural effusion or pneumothorax. Cardiomediastinal silhouette is normal in size. No pulmonary edema. No fracture. Signed: Xiao Mckinney MD Report Verified Date/Time: 07/06/2018 14:21:04 Reading Location: [facility] Radiology Reading Room Performing Organization Address City/[facility] Phone Number GE RIS Blood culture (07/06/2018 11:[address] REFEREE)Only the most recent of2 resultswithin the time period is included. Result No growth in [address] [facility] Specimen Blood Performing Organization Address [facility]/Zipcode Phone Number [address] [address] [phone] [place] Lactic acid, venous, whole blood (07/06/2018 11:[address] REFEREE) Lactate, Venous 0.8Comment: Specimen 0.5 - 2.2 mmol/L [facility] moderately hemolyzed [facility] Specimen Blood Performing Organization Address [facility] Phone Number [address] [address] [place] Urinalysis w/Microscopic + Reflex to Culture (07/06/2018 10:[address] REFEREE) Color, UA Light Yellow [facility] Clarity, UA Clear [facility] Specific [employer], UA 1.020 1.001 - 1.035 [facility] pH, UA 6.5 5.0 - 8.0 [facility] Protein, UA Negative Negative [facility] Glucose, UA Negative Negative [facility] Ketones, UA Negative Negative [facility] Bilirubin, UA Negative Negative [facility] Blood, UA Negative Negative [facility] Nitrite, UA Negative Negative [facility] Leukocytes, UA Negative Negative [facility] Urobilinogen, UA 0.2 0.2 - 1.0 mg/dL [facility] RBC, UA <1 /HPF [facility] WBC, UA 0 /HPF [facility] Squam Epithel, UA <1 /HPF [facility] Specimen Source [facility] Specimen Urine Performing Organization Address [facility] Centercode Phone Number [address] [place] [address] [place] Rapid drug screen, urine (07/06/2018 10:[address] REFEREE) Barbiturate Screen Negative Negative [facility] Benzodiazepine Screen Positive (A) Negative [facility] Cocaine (Metab.) Screen Negative Negative [facility] Methadone Screen Negative Negative [facility] Opiate Screen Positive (A) Negative [facility] Cannabinoid Screen Negative Negative [facility] Amph/Methamph Screen Negative Negative [facility] Phencyclidine Screen Negative Negative [facility] Oxycodone Screen Negative Negative [facility] Specimen Urine Narrative Performed At [facility] CONC. Cocaine 300 ng/mL Lqudnynonrt55 ng/mL Iwrruxnuqgumam599 ng/mL Barbiturate 200 ng/mL Lctklkeccjwga05 ng/mL Qymtqt971 ng/mL Methadone 300 ng/mL Amphetamine/ 1000 ng/mL Methamphetamine Oxycodone 300 ng/mL This assay provides an unconfirmed qualitative test result for the clinical management of patients in emergency situations. Chain of custody not maintained. Some [id number] medications, as well as adulterants, may cause inaccurate results. Clinical correlation should be applied. A more comprehensive drug screen or confirmation of a detected drug may be performed upon request. Performing Organization Address City/State/Zipcode Phone Number [place] [phone] [place] [address] [place] after 11/20/2017 Insurance Payer Benefit Plan / Group Subscriber ID Type Phone Address MEDICARE MEDICARE A B xxxxxxxxxxx Medicare DIAZ MEDICAID MEDICAID DIAZ xxxxxxxxx ([place]) [address] [place] [phone] Advance Directives For more information, please contact:[place] [address] [place], [place] [phone] Code Status Date Activated Date Inactivated Comments Full Code 11/06/2018 11:21 PM 11/16/2018 7:16 PM This code status was determined by: Patient Full Code 08/20/2018 11:25 AM 08/23/2018 11:18 [...]
--- OUTSIDE RECORDS SUMMARY | 2018-11-21 12:19 | XMS REPORT ---
:1970 Author Organization [facility] Address [address] [place] [address] [address]. [address] [place] [address] Care Team Providers Name Role Phone DR EDGARD CASH Unavailable Unavailable AMERICO GAY Unavailable Unavailable ALEJANDRO, JANI Unavailable Unavailable SANTIAGO DICKINSON Unavailable Unavailable SHAMSEE, PAPI-JOSE ALEJANDRO-AHMED Unavailable Unavailable AHMED, RAJOEY - Unavailable Unavailable OEI, RADHA Unavailable Unavailable Problems This patient has no known problems. Allergies, Adverse Reactions, Alerts This patient has no known allergies or adverse reactions. Medications This patient has no known medications. Encounters Start End Encounter Admission Attending Care Care Encounter Date/Time Date/Time Type Type Clinicians Facility Department ID 2016-11-04 In[place] [facility] [place] [id number] 09:30:00 EDGARD 2016-07-15 2016-07-19 Inpatient 1 HARSHIL [facility] [place] [id number] 18:47:00 10:30:00 BLAKE 2013-11-19 2013-11-19 Emergency E MOOK [facility] [id number] 10:08:00 12:55:00 RADHA Results Test Description Test Time Test Comments Text Results Atomic Results Result Comments MAGNESIUM 2018-11-16 08:01:00 Test Item Value Reference Range Comments MAGNESIUM (BEAKER) (test jyzb=608) 1.8 mg/dL 1.6-2.6 Specimen moderately hemolyzed BASIC METABOLIC [id number] 08:01:00 Test Item Value Reference Range Comments SODIUM (BEAKER) (test 137 meq/L 136-145 rsea=551) POTASSIUM (BEAKER) (test 4.5 meq/L 3.5-5.1 Specimen moderately orlv=452) hemolyzed CHLORIDE (BEAKER) (test 109 meq/L 98-107 bcvy=782) CO2 (BEAKER) (test 19 meq/L 22-29 tyls=986) BLOOD UREA NITROGEN 9 mg/dL 7-21 (BEAKER) (test lfmb=650) CREATININE (BEAKER) (test 0.71 mg/dL 0.57-1.25 Specimen moderately dmft=064) hemolyzed GLUCOSE RANDOM (BEAKER) 85 mg/dL 70-105 (test pdjx=628) CALCIUM (BEAKER) (test 9.0 mg/dL 8.4-10.2 lybu=952) EGFR (BEAKER) (test 88 mL/min/1.73 sq m ESTIMATED GFR IS NOT jpwi=5247) ACCURATE CREATININE CLEARANCE IN PREDICTING GLOMERULAR FILTRATION RATE. ESTIMATED GFR IS NOT APPLICABLE FOR DIALYSIS PATIENTS. CBC W/PLT COUNT & AUTO [id number] 05:59:00 Test Item Value Reference Range Comments WHITE BLOOD CELL COUNT (BEAKER) (test fhym=600) 7.3 K/ L 3.5-10.5 RED BLOOD CELL COUNT (BEAKER) (test xfst=956) 4.15 M/ L 3.93-5.22 HEMOGLOBIN (BEAKER) (test touc=266) 12.4 GM/DL 11.2-15.7 HEMATOCRIT (BEAKER) (test rmmt=819) 38.4 % 34.1-44.9 MEAN CORPUSCULAR VOLUME (BEAKER) (test yxcd=253) 92.5 fL 79.4-94.8 MEAN CORPUSCULAR HEMOGLOBIN (BEAKER) (test 29.9 pg 25.6-32.2 yyij=157) MEAN CORPUSCULAR HEMOGLOBIN CONC (BEAKER) (test 32.3 GM/DL 32.2-35.5 lsmh=870) RED CELL DISTRIBUTION WIDTH (BEAKER) (test 14.4 % 11.7-14.4 kvbn=174) PLATELET COUNT (BEAKER) (test jdai=007) 275 K/CU MM 150-450 MEAN PLATELET VOLUME (BEAKER) (test eqlq=760) 8.9 fL 9.4-12.3 NUCLEATED RED BLOOD CELLS (BEAKER) (test 0 /100 WBC 0-0 yfzr=934) NEUTROPHILS RELATIVE PERCENT (BEAKER) (test 49 % yhxb=658) LYMPHOCYTES RELATIVE PERCENT (BEAKER) (test 41 % dsgq=699) MONOCYTES RELATIVE PERCENT (BEAKER) (test 7 % kvnx=286) EOSINOPHILS RELATIVE PERCENT (BEAKER) (test 3 % hhxd=634) BASOPHILS RELATIVE PERCENT (BEAKER) (test 0 % zywb=227) NEUTROPHILS ABSOLUTE COUNT (BEAKER) (test 3.54 K/ L 1.56-6.13 vfvh=814) LYMPHOCYTES ABSOLUTE COUNT (BEAKER) (test 2.99 K/ L 1.18-3.74 yldf=226) MONOCYTES ABSOLUTE COUNT (BEAKER) (test 0.52 K/ L 0.24-0.36 sldz=847) EOSINOPHILS ABSOLUTE COUNT (BEAKER) (test 0.20 K/ L 0.04-0.36 byey=440) BASOPHILS ABSOLUTE COUNT (BEAKER) (test 0.03 K/ L 0.01-0.08 bapf=107) IMMATURE GRANULOCYTES-RELATIVE PERCENT (BEAKER) 0 % 0-1 (test lgfd=9448) [id number] 07:04:00 Test Item Value Reference Range Comments MAGNESIUM (BEAKER) (test pjwv=142) 1.8 mg/dL 1.6-2.6 BASIC METABOLIC [id number] 07:04:00 Test Item Value Reference Range Comments SODIUM (BEAKER) (test 139 meq/L 136-145 dcrz=922) POTASSIUM (BEAKER) (test 4.5 meq/L 3.5-5.1 gghv=365) CHLORIDE (BEAKER) (test 110 meq/L 98-107 lwwc=357) CO2 (BEAKER) (test 23 meq/L 22-29 psxd=645) BLOOD UREA NITROGEN 13 mg/dL 7-21 (BEAKER) (test ciff=511) CREATININE (BEAKER) (test 0.76 mg/dL 0.57-1.25 hfrx=306) GLUCOSE RANDOM (BEAKER) 100 mg/dL 70-105 (test xsvj=952) CALCIUM (BEAKER) (test 9.2 mg/dL 8.4-10.2 wtcm=826) EGFR (BEAKER) (test 82 mL/min/1.73 sq m ESTIMATED GFR IS NOT fsyd=4596) ACCURATE CREATININE CLEARANCE IN PREDICTING GLOMERULAR FILTRATION RATE. ESTIMATED GFR IS NOT APPLICABLE FOR DIALYSIS PATIENTS. CORTISOL,60 [id number] 07:01:00 Test Item Value Reference Range Comments CORTISOL BASELINE NETWORKED (BEAKER) (test < mcg/dL lvix=3376) CORTISOL 30 MINUTE NETWORKED (BEAKER) (test 6.0 mcg/dL nqjg=7071) CORTISOL, 60 MINUTE (BEAKER) (test wlle=5110) 7.0 ug/dL ACTH STIMULATION TEST INTERPRETATION GUIDELINES(Synonyms: Cortrosyn Test, Cosyntropin or Corticotropin Stimulation Test)Adenocorticotropic hormone (ACTH) is a tropic hormone, made in the pituitary gland, which travels trhough the bloodstream and stimulates the cortex of the adrenal glands to release cortisol. Cortisol is a primary hormone, which aids the body's metabolism of fats, carbohydrates, and protein as well as sodium and potassium regulation.ACTH Stimulation Test: Exogenous administrationof biologically active ACTH stimulates the secretion of cortisol from the adrenal gland. This test is used to evaluate adrenal function by measuring cortisol levels at baseline and at 30 and 60 minutesafter the administration of 250 micrograms of cosyntropin (Cortrosyn). Patients who have received exogenous corticosteroids immediately prior to performing the ACTH Stimulation Test will often have elevated baseline cortisol levels, which may lead to erroneous interpretation of test results. The notable exception is with dexamethasone.Normal Response: An increase in cortisol after stimulation by ACTHis normal. Post-stimulation cortisol concentration should be greater than 20 mcg/dL or the rate of rise from baseline cortisol should be greater than or equal to 9 mcg/dL.Patients with sepsis or septicshock: According to a study by Padilla et al (MIGUEL 2000,283( 8):1038-45), the ACTH Stimulation Test provides important prognostic information. This study defined 3 groups of patients with sepsis or septic shock : 1. Good Survival: Low basal cortisol (<or=34 mcg/dL) and high ACTH response (>9mcg/dL) 2. Intermediate Survival: Low basal cortisol (< 34 mcg/dL) and low response to ACTH (<or=9 mcg/dL) OR High basal cortisol (>34 mcg/dL) or high ACTH response (>9 mcg/dL) 3.Poor Survival: High basal cortisol (>34 mcg/dL) and low ACTH response (<or=9 mcg/dL) .Treatment of patients with relative adrenal dysfunction may be indicated based on test results and the clinical condition of the patient. Additional information, including treatment recommendations, is available in critically ill patients, approved by the Pharmacy, Nutrition, and Therapeutics Committee on 04/09/2004 and available through the Pharmacy Policy and Procedure Section on The Source.Do not run this test if systemic hydrocortisone, methylprednisolone, prednisolone or prednisone has been administered within the past 24 hours. Draw baseline cortisol level just prior to cosyntropin administration. Administer cosyntropin 0.25 mg diluted in 2-5 mL of normal saline slow IV Push over a period of 2 minutes. Draw serum cortisol level 30 minutes after cosyntropin administration. Draw serum cortisollevel 60 minutes after cosyntropin administration.CORTISOL,30 [id number] 07:01:00 Test Item Value Reference Range Comments CORTISOL BASELINE NETWORKED (BEAKER) (test < mcg/dL mvyd=2083) CORTISOL, 30 MINUTE (BEAKER) (test iumu=3728) 6.0 ug/dL ACTH STIMULATION TEST INTERPRETATION GUIDELINES(Synonyms: Cortrosyn Test, Cosyntropin or Corticotropin Stimulation Test)Adenocorticotropic hormone (ACTH) is a tropic hormone, made in the pituitary gland, which travels trhough the bloodstream and stimulates the cortex of the adrenal glands to release cortisol. Cortisol is a primary hormone, which aids the body's metabolism of fats, carbohydrates, and protein as well as sodium and potassium regulation.ACTH Stimulation Test: Exogenous administrationof biologically active ACTH stimulates the secretion of cortisol from the adrenal gland. This test is used to evaluate adrenal function by measuring cortisol levels at baseline and at 30 and 60 minutesafter the administration of 250 micrograms of cosyntropin (Cortrosyn). Patients who have received exogenous corticosteroids immediately prior to performing the ACTH Stimulation Test will often have elevated baseline cortisol levels, which may lead to erroneous interpretation of test results. The notable exception is with dexamethasone.Normal Response: An increase in cortisol after stimulation by ACTHis normal. Post-stimulation cortisol concentration should be greater than 20 mcg/dL or the rate of rise from baseline cortisol should be greater than or equal to 9 mcg/dL.Patients with sepsis or septicshock: According to a study by Padilla et al (MIGUEL 2000,283( 8):1038-45), the ACTH Stimulation Test provides important prognostic information. This study defined 3 groups of patients with sepsis or septic shock : 1. Good Survival: Low basal cortisol (<or=34 mcg/dL) and high ACTH response (>9mcg/dL) 2. Intermediate Survival: Low basal cortisol (< 34 mcg/dL) and low response to ACTH (<or=9 mcg/dL) OR High basal cortisol (>34 mcg/dL) or high ACTH response (>9 mcg/dL) 3.Poor Survival: High basal cortisol (>34 mcg/dL) and low ACTH response (<or=9 mcg/dL) .Treatment of patients with relative adrenal dysfunction may be indicated based on test results and the clinical condition of the patient. Additional information, including treatment recommendations, is available in critically ill patients, approved by the Pharmacy, Nutrition, and Therapeutics Committee on 04/09/2004 and available through the Pharmacy Policy and Procedure Section on The Source.Do not run this test if systemic hydrocortisone, methylprednisolone, prednisolone or prednisone has been administered within the past 24 hours. Draw baseline cortisol level just prior to cosyntropin administration. Administer cosyntropin 0.25 mg diluted in 2-5 mL of normal saline slow IV Push over a period of 2 minutes. Draw serum cortisol level 30 minutes after cosyntropin administration. Draw serum cortisollevel 60 minutes after cosyntropin administration.CBC W/PLT COUNT & AUTO [id number] 05:46:00 Test Item Value Reference Range Comments WHITE BLOOD CELL COUNT (BEAKER) (test pdit=138) 6.0 K/ L 3.5-10.5 RED BLOOD CELL COUNT (BEAKER) (test uhry=726) 4.25 M/ L 3.93-5.22 HEMOGLOBIN (BEAKER) (test hpiw=996) 12.6 GM/DL 11.2-15.7 HEMATOCRIT (BEAKER) (test bghp=945) 40.4 % 34.1-44.9 MEAN CORPUSCULAR VOLUME (BEAKER) (test tsxb=945) 95.1 fL 79.4-94.8 MEAN CORPUSCULAR HEMOGLOBIN (BEAKER) (test 29.6 pg 25.6-32.2 vkqp=865) MEAN CORPUSCULAR HEMOGLOBIN CONC (BEAKER) (test 31.2 GM/DL 32.2-35.5 pdgi=568) RED CELL DISTRIBUTION WIDTH (BEAKER) (test 14.6 % 11.7-14.4 uklz=950) PLATELET COUNT (BEAKER) (test ocuu=378) 223 K/CU MM 150-450 MEAN PLATELET VOLUME (BEAKER) (test zdqv=810) 8.6 fL 9.4-12.3 NUCLEATED RED BLOOD CELLS (BEAKER) (test 0 /100 WBC 0-0 kltq=686) NEUTROPHILS RELATIVE PERCENT (BEAKER) (test 50 % gnua=534) LYMPHOCYTES RELATIVE PERCENT (BEAKER) (test 37 % lznz=868) MONOCYTES RELATIVE PERCENT (BEAKER) (test 8 % rppp=086) EOSINOPHILS RELATIVE PERCENT (BEAKER) (test 5 % ailf=646) BASOPHILS RELATIVE PERCENT (BEAKER) (test 1 % oovh=780) NEUTROPHILS ABSOLUTE COUNT (BEAKER) (test 3.01 K/ L 1.56-6.13 ezec=840) LYMPHOCYTES ABSOLUTE COUNT (BEAKER) (test 2.24 K/ L 1.18-3.74 ugbp=679) MONOCYTES ABSOLUTE COUNT (BEAKER) (test 0.45 K/ L 0.24-0.36 zzin=102) EOSINOPHILS ABSOLUTE COUNT (BEAKER) (test 0.29 K/ L 0.04-0.36 qpxr=226) BASOPHILS ABSOLUTE COUNT (BEAKER) (test 0.03 K/ L 0.01-0.08 fkmi=632) IMMATURE GRANULOCYTES-RELATIVE PERCENT (BEAKER) 0 % 0-1 (test gepr=6565) CORTISOL,[id number] 19:10:00 Test Item Value Reference Range Comments CORTISOL, BASELINE (BEAKER) (test lwzn=5696) < ug/dL ACTH STIMULATION TEST INTERPRETATION GUIDELINES(Synonyms: Cortrosyn Test, Cosyntropin or Corticotropin Stimulation Test)Adenocorticotropic hormone (ACTH) is a tropic hormone, made in the pituitary gland, which travels trhough the bloodstream and stimulates the cortex of the adrenal glands to release cortisol. Cortisol is a primary hormone, which aids the body's metabolism of fats, carbohydrates, and protein as well as sodium and potassium regulation.ACTH Stimulation Test: Exogenous administrationof biologically active ACTH stimulates the secretion of cortisol from the adrenal gland. This test is used to evaluate adrenal function by measuring cortisol levels at baseline and at 30 and 60 minutesafter the administration of 250 micrograms of cosyntropin (Cortrosyn). Patients who have received exogenous corticosteroids immediately prior to performing the ACTH Stimulation Test will often have elevated baseline cortisol levels, which may lead to erroneous interpretation of test results. The notable exception is with dexamethasone.Normal Response: An increase in cortisol after stimulation by ACTHis normal. Post-stimulation cortisol concentration should be greater than 20 mcg/dL or the rate of rise from baseline cortisol should be greater than or equal to 9 mcg/dL.Patients with sepsis or septicshock: According to a study by Padilla et al (MIGUEL 2000,283( 8):1038-45), the ACTH Stimulation Test provides important prognostic information. This study defined 3 groups of patients with sepsis or septic shock : 1. Good Survival: Low basal cortisol (<or=34 mcg/dL) and high ACTH response (>9mcg/dL) 2. Intermediate Survival: Low basal cortisol (< 34 mcg/dL) and low response to ACTH (<or=9 mcg/dL) OR High basal cortisol (>34 mcg/dL) or high ACTH response (>9 mcg/dL) 3.Poor Survival: High basal cortisol (>34 mcg/dL) and low ACTH response (<or=9 mcg/dL) .Treatment of patients with relative adrenal dysfunction may be indicated based on test results and the clinical condition of the patient. Additional information, including treatment recommendations, is available in critically ill patients, approved by the Pharmacy, Nutrition, and Therapeutics Committee on 04/09/2004 and available through the Pharmacy Policy and Procedure Section on The Source.Do not run this test if systemic hydrocortisone, methylprednisolone, prednisolone or prednisone has been administered within the past 24 hours. Draw baseline cortisol level just prior to cosyntropin administration. Administer cosyntropin 0.25 mg diluted in 2-5 mL of normal saline slow IV Push over a period of 2 minutes. Draw serum cortisol level 30 minutes after cosyntropin administration. Draw serum cortisollevel 60 minutes after cosyntropin administration.[id number] 14:23:00 Test Item Value Reference Range Comments MAGNESIUM (BEAKER) (test iktu=180) 1.8 mg/dL 1.6-2.6 BASIC METABOLIC [id number] 14:23:00 Test Item Value Reference Range Comments SODIUM (BEAKER) (test 138 meq/L 136-145 ucft=984) POTASSIUM (BEAKER) (test 4.2 meq/L 3.5-5.1 imdv=919) CHLORIDE (BEAKER) (test 104 meq/L 98-107 gosh=153) CO2 (BEAKER) (test 24 meq/L 22-29 ukqz=530) BLOOD UREA NITROGEN 10 mg/dL 7-21 (BEAKER) (test qeni=298) CREATININE (BEAKER) (test 0.82 mg/dL 0.57-1.25 ahku=897) GLUCOSE RANDOM (BEAKER) 83 mg/dL 70-105 (test najr=808) CALCIUM (BEAKER) (test 9.5 mg/dL 8.4-10.2 xihz=651) EGFR (BEAKER) (test 75 mL/min/1.73 sq m ESTIMATED GFR IS NOT qgyh=8071) ACCURATE CREATININE CLEARANCE IN PREDICTING GLOMERULAR FILTRATION RATE. ESTIMATED GFR IS NOT APPLICABLE FOR DIALYSIS PATIENTS. CBC W/PLT COUNT & AUTO [id number] 14:01:00 Test Item Value Reference Range Comments WHITE BLOOD CELL COUNT (BEAKER) (test mlyx=663) 7.6 K/ L 3.5-10.5 RED BLOOD CELL COUNT (BEAKER) (test mwmc=122) 4.59 M/ L 3.93-5.22 HEMOGLOBIN (BEAKER) (test ustl=653) 13.5 GM/DL 11.2-15.7 HEMATOCRIT (BEAKER) (test tqxd=562) 43.0 % 34.1-44.9 MEAN CORPUSCULAR VOLUME (BEAKER) (test xrwe=450) 93.7 fL 79.4-94.8 MEAN CORPUSCULAR HEMOGLOBIN (BEAKER) (test 29.4 pg 25.6-32.2 zfsf=486) MEAN CORPUSCULAR HEMOGLOBIN CONC (BEAKER) (test 31.4 GM/DL 32.2-35.5 erwv=754) RED CELL DISTRIBUTION WIDTH (BEAKER) (test 14.5 % 11.7-14.4 tmmv=930) PLATELET COUNT (BEAKER) (test ozfz=095) 262 K/CU MM 150-450 MEAN PLATELET VOLUME (BEAKER) (test otdx=232) 8.5 fL 9.4-12.3 NUCLEATED RED BLOOD CELLS (BEAKER) (test 0 /100 WBC 0-0 xwum=180) NEUTROPHILS RELATIVE PERCENT (BEAKER) (test 52 % bvvl=087) LYMPHOCYTES RELATIVE PERCENT (BEAKER) (test 37 % gxaz=827) MONOCYTES RELATIVE PERCENT (BEAKER) (test 6 % skcu=112) EOSINOPHILS RELATIVE PERCENT (BEAKER) (test 4 % imti=884) BASOPHILS RELATIVE PERCENT (BEAKER) (test 0 % yujr=867) NEUTROPHILS ABSOLUTE COUNT (BEAKER) (test 3.94 K/ L 1.56-6.13 ynzw=509) LYMPHOCYTES ABSOLUTE COUNT (BEAKER) (test 2.82 K/ L 1.18-3.74 fhfv=079) MONOCYTES ABSOLUTE COUNT (BEAKER) (test 0.46 K/ L 0.24-0.36 miyk=220) EOSINOPHILS ABSOLUTE COUNT (BEAKER) (test 0.30 K/ L 0.04-0.36 nany=576) BASOPHILS ABSOLUTE COUNT (BEAKER) (test 0.02 K/ L 0.01-0.08 cden=493) IMMATURE GRANULOCYTES-RELATIVE PERCENT (BEAKER) 0 % 0-1 (test lwks=7513) OVA AND PARASITE [id number] 12:03:00 Test Item Value Reference Range Comments DIRECT SMEAR - O\\T\\P No ova or parasites seen No ova or parasites seen (BEAKER) (test fjsx=565) CONCENTRATE SMEAR - O\\T\\P No ova or parasites seen No ova or parasites seen (BEAKER) (test hlgb=338) TRICHROME SMEAR - O\\T\\P No ova or parasites seen No ova or parasites seen (BEAKER) (test gtnq=438) [id number] 05:30:00 Test Item Value Reference Range Comments MAGNESIUM (BEAKER) (test uwnc=996) 1.9 mg/dL 1.6-2.6 BASIC METABOLIC [id number] 05:30:00 Test Item Value Reference Range Comments SODIUM (BEAKER) (test 143 meq/L 136-145 svll=116) POTASSIUM (BEAKER) (test 4.2 meq/L 3.5-5.1 zcfs=866) CHLORIDE (BEAKER) (test 109 meq/L 98-107 ugcj=394) CO2 (BEAKER) (test 28 meq/L 22-29 lrzc=202) BLOOD UREA NITROGEN 7 mg/dL 7-21 (BEAKER) (test xcxc=732) CREATININE (BEAKER) (test 0.70 mg/dL 0.57-1.25 spph=058) GLUCOSE RANDOM (BEAKER) 80 mg/dL 70-105 (test mpla=439) CALCIUM (BEAKER) (test 9.2 mg/dL 8.4-10.2 aiaq=660) EGFR (BEAKER) (test 90 mL/min/1.73 sq m ESTIMATED GFR IS NOT dsua=7093) ACCURATE CREATININE CLEARANCE IN PREDICTING GLOMERULAR FILTRATION RATE. ESTIMATED GFR IS NOT APPLICABLE FOR DIALYSIS PATIENTS. CBC W/PLT COUNT & AUTO [id number] 04:58:00 Test Item Value Reference Range Comments WHITE BLOOD CELL COUNT (BEAKER) (test tqtq=250) 6.7 K/ L 3.5-10.5 RED BLOOD CELL COUNT (BEAKER) (test bbpe=479) 4.58 M/ L 3.93-5.22 HEMOGLOBIN (BEAKER) (test olcw=096) 13.5 GM/DL 11.2-15.7 HEMATOCRIT (BEAKER) (test oade=818) 43.8 % 34.1-44.9 MEAN CORPUSCULAR VOLUME (BEAKER) (test kczl=718) 95.6 fL 79.4-94.8 MEAN CORPUSCULAR HEMOGLOBIN (BEAKER) (test 29.5 pg 25.6-32.2 buff=857) MEAN CORPUSCULAR HEMOGLOBIN CONC (BEAKER) (test 30.8 GM/DL 32.2-35.5 pbcu=867) RED CELL DISTRIBUTION WIDTH (BEAKER) (test 14.7 % 11.7-14.4 jfvt=419) PLATELET COUNT (BEAKER) (test jjau=385) 242 K/CU MM 150-450 MEAN PLATELET VOLUME (BEAKER) (test mdyu=327) 8.4 fL 9.4-12.3 NUCLEATED RED BLOOD CELLS (BEAKER) (test 0 /100 WBC 0-0 kfla=409) NEUTROPHILS RELATIVE PERCENT (BEAKER) (test 49 % qper=273) LYMPHOCYTES RELATIVE PERCENT (BEAKER) (test 40 % fezk=493) MONOCYTES RELATIVE PERCENT (BEAKER) (test 7 % rhwj=928) EOSINOPHILS RELATIVE PERCENT (BEAKER) (test 4 % jliw=113) BASOPHILS RELATIVE PERCENT (BEAKER) (test 0 % hfbn=915) NEUTROPHILS ABSOLUTE COUNT (BEAKER) (test 3.25 K/ L 1.56-6.13 eghg=615) LYMPHOCYTES ABSOLUTE COUNT (BEAKER) (test 2.68 K/ L 1.18-3.74 aeol=284) MONOCYTES ABSOLUTE COUNT (BEAKER) (test 0.44 K/ L 0.24-0.36 wpfg=415) EOSINOPHILS ABSOLUTE COUNT (BEAKER) (test 0.28 K/ L 0.04-0.36 wevt=542) BASOPHILS ABSOLUTE COUNT (BEAKER) (test 0.03 K/ L 0.01-0.08 ykrn=898) IMMATURE GRANULOCYTES-RELATIVE PERCENT (BEAKER) 0 % 0-1 (test fgja=2227) TISSUE [id number] 15:51:00Surgical Pathology Report Case: [id number] Authorizing Provider: Bartolo Quinn Collected: 11/10/2018 1543 Ordering Location: [address] Received: 11/12/2018 0813 Service Pathologist: Linda Mullen MD Specimens: A) - Biopsy, Terminal Ileum, Neoterminal Ileum biopsy B) -Ileum, Ileocolonic Anastomosis biopsy C) - Large Intestine, Colon - Right/Ascending, Right colon biopsy D) - LargeIntestine, Colon - Transverse, Transverse colon biopsy E) - Large Intestine, Colon - Left/ Descending, Left colon biopsy A. NEOTERMINAL ILEUM, BIOPSY: - SUPERFICIAL FRAGMENTS OF ILEAL MUCOSA WITH NORMAL VILLOUS ARCHITECTURE AND NO SIGNIFICANT DIAGNOSTIC ABNORMALITY (SEE COMMENT)B. ILEOCOLONIC ANASTOMOSIS, BIOPSY: - ENTERIC MUCOSA WITH CHANGES CONSISTENT WITH ANASTOMOSIS SITE RELATED CHANGESC. COLON, RIGHT/ASCENDING, BIOPSY: - COLONIC MUCOSA WITH NO SIGNIFICANT DIAGNOSTIC ABNORMALITYD. COLON, TRANSVERSE, BIOPSY: - COLONIC MUCOSA WITH NO SIGNIFICANT DIAGNOSTIC ABNORMALITYE. COLON, LEFT/DESCENDING, BIOPSY: - COLONIC MUCOSA WITH RARE CRYPT DISTORTION Signing Pathologist Direct Phone Line: [phone] signed by Linda Mullen MD on 11/12/2018 at 3:51 PMPatient's history of Crohn's disease is noted. The current sampling shows no significant active or chronic colitis. This may represent complete histologic resolution following treatment. Clinical and endoscopic correlation is recommended.[id number] and postop diagnosis: diarrhea A. Neoterminal ileum biopsy; B. Ileocolonic anastomosis biopsy; C. Right colon biopsy;D. Transverse colon biopsy; E. Left colon biopsyA. Received in formalin labeled with the patient's name, accession number and "biopsy, terminal ileum" are four irregular rodriguez soft tissue fragments ranging 0.2-0.4 cm which are submitted in toto in A1. B. Received in formalin labeled with the patient's name , accession number and "ileum" are multiple rodriguez-soft tissue fragments ranging 0.1-0.2 cm which aresubmitted in toto in B1. C. Received in [...] which are submitted in toto in E1. CG/ pl Performed.STOOL CULTURE + SHIGA [id number] 08:26:00 Test Item Value Reference Range Comments CULTURE (BEAKER) (test No Salmonella, Shigella or zfnw=3435) Campylobacter isolated GI PATHOGEN PROFILE BY [id number] 08:20:00 Test Item Value Reference Range Comments CAMPYLOBACTER (PCR) (test mesm=[id number]) Not detected Not detected PLESIOMONAS SHIGELLOIDES (PCR) (test Not detected Not detected lztk=8632604) SALMONELLA (PCR) (test oqfh=[id number]) Not detected Not detected YERSINIA ENTEROCOLITICA (PCR) (test Not detected Not detected zmsu=9334022) VIBRIO CHOLERAE (PCR) (test emlr=7982098) Not detected Not detected ENTEROAGGREGATIVE E. COLI (EAEC) BY PCR (test Not detected Not detected toys=7586956) ENTEROPATHOGENIC E. COLI (EPEC) BY PCR (test Not detected Not detected filv=6340833) ENTEROTOXIGENIC E. COLI (ETEC) LT/ST BY PCR Not detected Not detected (test allv=2728683) SHIGA-LIKE TOXIN-PRODUCING E. COLI (STEC) Not detected Not detected STX1/STX2 (test qfmf=3384838) E. COLI O157 (PCR) (test icwy=1442529) Not detected SHIGELLA/ENTEROINVASIVE E. COLI (EIEC) BY PCR Not detected Not detected (test obdi=[id number]) CRYPTOSPORIDIUM (PCR) (test yvlc=[id number]) Not detected Not detected CYCLOSPORA CAYETANENSIS (PCR) (test Not detected Not detected jlhs=2275782) ENTAMOEBA HISTOLYTICA (PCR) (test lvsd=[id number]) Not detected Not detected GIARDIA LAMBLIA (PCR) (test mflv=2420392) Not detected Not detected ADENOVIRUS F 40/41 (PCR) (test gfld=4864728) Not detected Not detected ASTROVIRUS (PCR) (test wfas=1919948) Not detected Not detected NOROVIRUS GI/GII (PCR) (test tfpd=1751364) Not detected Not detected ROTAVIRUS A (PCR) (test vhnh=0790298) Not detected Not detected SAPOVIRUS (I, II, IV, V) BY PCR (test Not detected Not detected iixn=[id number]) VIBRIO (PARAHAEMOLYTICUS, VULNIFICUS) (test Not detected Not detected pdnk=[id number]) Other viruses, parasites and bacteria not targeted by this PCR panel cannot be excluded; therefore clinical correlation and follow up of serology, culture results, and other molecular studies is required. The results are not intended to be used as the sole means for clinical diagnosis or patient management decisions. This sample was tested at the [facility] Molecular Diagnostics Laboratory using the [employer] Gastrointestinal Panel. It is FDA cleared and has been verified and approved by the [facility]ostics [facility] for clinical use. This laboratory is CLIA-certified and College ofAmerican Pathologists (CAP)-accredited to perform high complexity testing.[id number] 06:24:00 Test Item Value Reference Range Comments CORTISOL, TOTAL (BEAKER) (test sivi=8867) < ug/dL 3.7-19.4 BASIC METABOLIC [id number] 05:50:00 Test Item Value Reference Range Comments SODIUM (BEAKER) (test 142 meq/L 136-145 utjy=103) POTASSIUM (BEAKER) (test 4.3 meq/L 3.5-5.1 Specimen slightly xeeg=819) hemolyzed CHLORIDE (BEAKER) (test 114 meq/L 98-107 sobk=867) CO2 (BEAKER) (test 21 meq/L 22-29 hrib=959) BLOOD UREA NITROGEN 3 mg/dL 7-21 (BEAKER) (test oufr=926) CREATININE (BEAKER) (test 0.66 mg/dL 0.57-1.25 Specimen slightly aozr=975) hemolyzed GLUCOSE RANDOM (BEAKER) 84 mg/dL 70-105 (test acef=859) CALCIUM (BEAKER) (test 8.6 mg/dL 8.4-10.2 aanl=977) EGFR (BEAKER) (test 96 mL/min/1.73 sq m ESTIMATED GFR IS NOT ugha=6399) ACCURATE CREATININE CLEARANCE IN PREDICTING GLOMERULAR FILTRATION RATE. ESTIMATED GFR IS NOT APPLICABLE FOR DIALYSIS PATIENTS. SHIGA TOXIN [id number] 14:16:00 Test Item Value Reference Range Comments SHIGA TOXIN 1 (BEAKER) (test wotq=3204) Not detected Not detected SHIGA TOXIN 2 (BEAKER) (test kpfq=0642) Not detected Not detected STOOL PATH [id number] 10:08:00 Test Item Value Reference Range Comments PATHOGEN EXAM CHARGED (BEAKER) (test hnbq=9710) Done TSH/FREE T4 IF [id number] 05:59:00 Test Item Value Reference Range Comments THYROID STIMULATING HORMONE (BEAKER) (test 2.84 uIU/mL 0.35-4.94 jzlc=335) BASIC METABOLIC [id number] 05:38:00 Test Item Value Reference Range Comments SODIUM (BEAKER) (test 135 meq/L 136-145 lgep=483) POTASSIUM (BEAKER) (test 4.0 meq/L 3.5-5.1 pmhg=006) CHLORIDE (BEAKER) (test 106 meq/L 98-107 llul=346) CO2 (BEAKER) (test 22 meq/L 22-29 ijqy=663) BLOOD UREA NITROGEN 5 mg/dL 7-21 (BEAKER) (test qpuq=999) CREATININE (BEAKER) (test 0.68 mg/dL 0.57-1.25 qmal=850) GLUCOSE RANDOM (BEAKER) 84 mg/dL 70-105 (test bosk=693) CALCIUM (BEAKER) (test 8.2 mg/dL 8.4-10.2 poda=293) EGFR (BEAKER) (test 93 mL/min/1.73 sq m ESTIMATED GFR IS NOT qufm=2097) ACCURATE CREATININE CLEARANCE IN PREDICTING GLOMERULAR FILTRATION RATE. ESTIMATED GFR IS NOT APPLICABLE FOR DIALYSIS PATIENTS. RAD, ABDOMEN/KUB, 1 VIEW [id number] 14:37:00Reason for exam:->post- obstructive diarrheaShould this be performed at the bedside?->YesFINAL REPORT Abdomen dated November 07, 2018 Comment:Abdomen was examined in the supine frontal position. [...] mechanical obstruction or ileus. Signed: Kehinde Zaman MDReport Verified Date/Time : 11/07/2018 14:37:57 Reading Location: [address] Consult Reading Room CT, [id number] 14:25:00FINAL REPORT TECHNIQUE: CT of the abdomen and pelvis WITH intravenous contrast and WITH oral contrast. Dose modulation, iterative reconstruction, and/or weight-based adjustment of the mA/ kV was utilized to reduce the radiation dose to as low as reasonably achievable. INDICATION:48-year-old woman with abdominal pain. COMPARISON: Abdomen and pelvis CT 09/18/2018. FINDINGS: LOWERTHORAX: Unremarkable. HEPATOBILIARY: No focal hepatic lesions. Prior cholecystectomy. No biliary ductal dilatation.SPLEEN: No splenomegaly.PANCREAS: No focal masses or ductal dilatation. ADRENALS: No adrenal nodules.KIDNEYS/URETERS: No hydronephrosis or stones. Unchanged 1 cm bilateral renal cysts. Unchanged 3.3 x 3.5 cm hypodensity in the left upper pole with density greater than simple fluid and a thin subcentimeter mural calcification.PELVIC ORGANS/BLADDER: Prior hysterectomy. No adnexal mass. The bladder is unremarkable. PERITONEUM/ RETROPERITONEUM: Increased ill-defined inflammatory change in the right abdomen adjacent to the ileocolic anastomosis contains a new tiny focus of air. No free fluid.LYMPH NODES: No lymphadenopathy.VESSELS: Unremarkable. GI TRACT: Prior right hemicolectomy with [...] the level of the lower thoracic spine. IMPRESSION:Increased ill- defined inflammatory change adjacent to the ileocolic anastomosis which contains a tiny focus of air may represent phlegmonous change. Bowel leak is unlikely. No discrete fluid collections. Unchanged 3.5 cm hypodensity in the upper left kidney, likely a debris-containing cyst. Abdomen CT with and without intravenous contrast (renal mass protocol) may be obtained for definitive characterization. Signed: Cj Lowery MDReport Verified Date/Time: 2018 14:25:25 Reading Location: [facility] B1 C013Y CT Body Reading Room CBC W/ PLT COUNT & AUTO [id number] 13:14:00 Test Item Value Reference Range Comments WHITE BLOOD CELL COUNT (BEAKER) (test aizi=081) 7.1 K/ L 3.5-10.5 RED BLOOD CELL COUNT (BEAKER) (test zfbo=384) 4.42 M/ L 3.93-5.22 HEMOGLOBIN (BEAKER) (test trqb=347) 13.0 GM/DL 11.2-15.7 HEMATOCRIT (BEAKER) (test tdsa=564) 41.6 % 34.1-44.9 MEAN CORPUSCULAR VOLUME (BEAKER) (test ixsc=450) 94.1 fL 79.4-94.8 MEAN CORPUSCULAR HEMOGLOBIN (BEAKER) (test 29.4 pg 25.6-32.2 qjki=887) MEAN CORPUSCULAR HEMOGLOBIN CONC (BEAKER) (test 31.3 GM/DL 32.2-35.5 fkaw=309) RED CELL DISTRIBUTION WIDTH (BEAKER) (test 15.2 % 11.7-14.4 rqor=639) PLATELET COUNT (BEAKER) (test ohzy=927) 280 K/CU MM 150-450 MEAN PLATELET VOLUME (BEAKER) (test gdyp=552) 8.3 fL 9.4-12.3 NUCLEATED RED BLOOD CELLS (BEAKER) (test 0 /100 WBC 0-0 jlgd=333) (CELLAVISION MANUAL DIFF)2018-11-07 13:14:00 Test Item Value Reference Range Comments NEUTROPHILS - REL (CELLAVISION)(BEAKER) (test 83 % uyrt=0378) LYMPHOCYTES - REL (CELLAVISION)(BEAKER) (test 13 % ahax=5143) MONOCYTES - REL (CELLAVISION)(BEAKER) (test 4 % zeni=2761) NEUTROPHILS - ABS (CELLAVISION)(BEAKER) (test 5.89 K/ul 1.56-6.13 jwah=6404) LYMPHOCYTES - ABS (CELLAVISION)(BEAKER) (test 0.92 K/ul 1.18-3.74 tiec=0964) MONOCYTES - ABS (CELLAVISION)(BEAKER) (test 0.28 K/uL 0.24-0.36 hhrg=2824) TOTAL COUNTED (BEAKER) (test unnn=2109) 100 RBC MORPHOLOGY (BEAKER) (test dbem=217) Normal WBC MORPHOLOGY (BEAKER) (test xbgt=712) Normal PLT MORPHOLOGY (BEAKER) (test fzmg=104) Normal ARTIFACT (CELLAVISION)(BEAKER) (test tbzr=5701) Present PLATELET CONCENTRATION (CELLAVISION)(BEAKER) (test Adequate pkqn=6950) Received comment: User comments: Slide comments:C. DIFFICILE GDH [id number] 12:53:00 Test Item Value Reference Range Comments CDT TOXIN (test Negative Negative hxub=[id number]) CDT GDH ANTIGEN (test Negative Negative No indication of Clostridium unut=[id number]) difficile infection and no colonization. Discontinue enteric isolation and therapy. Testing performed by [employer] Rapid Cassette Assay. For GDH, published sensitivity of the assay is 98.7% compared to cytotoxicity testing. For Toxin AB, published sensitivity is 87.8% and specificity 99.4% compared to cytotoxicity testing.Verification of kit performance was done by the [facility] Microbiology Lab prior to clinical use.C-REACTIVE [id number] 06:53:00 Test Item Value Reference Range Comments C-REACTIVE PROTEIN (BEAKER) (test uhjv=509) 0.37 mg/dL 0.00-0.50 BASIC METABOLIC [id number] 06:41:00 Test Item Value Reference Range Comments SODIUM (BEAKER) (test 135 meq/L 136-145 uwaq=872) POTASSIUM (BEAKER) (test 4.3 meq/L 3.5-5.1 qasu=278) CHLORIDE (BEAKER) (test 104 meq/L 98-107 vyeh=010) CO2 (BEAKER) (test 21 meq/L 22-29 okya=089) BLOOD UREA NITROGEN 14 mg/dL 7-21 (BEAKER) (test essw=624) CREATININE (BEAKER) (test 0.83 mg/dL 0.57-1.25 dbop=370) GLUCOSE RANDOM (BEAKER) 160 mg/dL 70-105 (test itpo=107) CALCIUM (BEAKER) (test 9.0 mg/dL 8.4-10.2 geoq=928) EGFR (BEAKER) (test 74 mL/min/1.73 sq m ESTIMATED GFR IS NOT wcuh=0052) ACCURATE CREATININE CLEARANCE IN PREDICTING GLOMERULAR FILTRATION RATE. ESTIMATED GFR IS NOT APPLICABLE FOR DIALYSIS PATIENTS. CT, [id number] 09:48:00FINAL REPORT CT Abdomen And Pelvis with Intravenous Contrast INDICATION: Incisional hernia, Crohn's disease status post right hemicolectomy; recent revision ileocolectomy (2018) K43.2 TECHNIQUE: Thin collimation axial images obtained from the diaphragm to the level of the pubic symphysis following the uneventful administration of 150 cc of low osmolar, nonionic intravenouscontrast. Dose reduction techniques used: Automated exposure control, adjustment of the mAs and /or kVp according to patient size, standardized low-dose protocol, and/or iterative reconstruction technique. RADIATION DOSE: Total DLP: 405.9 mGy* cm Estimated effective dose: (DLP x 0.015 x [...] 13 mm and is stable. No hydronephrosis. Left : Normal enhancement. A cyst in the lateral [...] lumbar spine are stable. Intrathecal catheter enters thespine at L2-3 and terminates at T11-12. Soft tissues: Midline incision is well-healed. No evidence of hernia. IMPRESSION : 1. Small amount of peritoneal inflammation in the right hemiabdomen secondaryto recent surgery. The bowel demonstrates no evidence of dilatation or mural hyperemia. No fluid collection. 2. No evidence of incisional hernia. 3. Stable renal cysts. Annual surveillance of the left upper pole cyst with CT is recommended to confirm stability. Signed: Melony Henriquez MDReport Verified Date/Time: 09/20/2018 09:48:51 [facility], BONE DENSITY [id number] 13:22 :00Reason for Exam:->crohn's disease of both small and large intestine with other complication; intestinal malabsorption,unspecified type, heavy smoker, history of steroid therapy,encounter for imaging to assess osteopeniaFINAL REPORT Exam: Bone mineral density study. History: Osteopenia. Comparison: None Discussion: Evaluation of the left hip, and lumbar spine was performed utilizing DEXA Hologic bone densitometer. The study is technically adequate. Left hip total bone mineral density: 0.636gm/cm2, T- score is -2.5, Z-score is -2.2. Left hip femoral neck bone mineral density: 0.596gm/cm2, T-score is -2.3, Z-score is -1.7. Lumbar spine total bone mineral density: 0.809gm/cm2, T-score is -2.2,Z-score is -1.6. Impression:1. Osteoporosis of the left hip, fracture risk is high2. Osteopenia of the lumbar spine, fracture risk is increased Least significant change (LSC) for bone mineral density as provided by ditch cleaner is 0.023 g/cm2 for lumbar spine and 0.027 g/cm2 for total hip. 10 -year fracture risk per WHO Fracture Risk Assessment Tool (FRAX) for:Not reported because some T-scoresat or below -2.5 The patient's fracture risk is compared to an age-matched control. Medical evaluation for secondary causes of low bone bone mineral density may be appropriate. Correlate clinically for the necessity and timing of the next bone mineral density study. Signed: Art Bermeo MDReport Verified Date/Time: 2018 13:22:29 01: 22 [id number] 07:02:00 Test Item Value Reference Range Comments PHOSPHORUS (BEAKER) (test tdzr=144) 2.9 mg/dL 2.3-4.7 [id number] 07:02:00 Test Item Value Reference Range Comments MAGNESIUM (BEAKER) (test gfsu=353) 1.9 mg/dL 1.6-2.6 BASIC METABOLIC [id number] 07:02:00 Test Item Value Reference Range Comments SODIUM (BEAKER) (test 139 meq/L 136-145 ylfd=408) POTASSIUM (BEAKER) (test 4.0 meq/L 3.5-5.1 jerp=515) CHLORIDE (BEAKER) (test 108 meq/L 98-107 twpd=267) CO2 (BEAKER) (test 26 meq/L 22-29 mgrw=791) BLOOD UREA NITROGEN 6 mg/dL 7-21 (BEAKER) (test ofdt=248) CREATININE (BEAKER) (test 0.68 mg/dL 0.57-1.25 sbbb=169) GLUCOSE RANDOM (BEAKER) 87 mg/dL 70-105 (test bcfi=080) CALCIUM (BEAKER) (test 8.5 mg/dL 8.4-10.2 gizb=531) EGFR (BEAKER) (test 93 mL/min/1.73 sq m ESTIMATED GFR IS NOT didc=6231) ACCURATE CREATININE CLEARANCE IN PREDICTING GLOMERULAR FILTRATION RATE. ESTIMATED GFR IS NOT APPLICABLE FOR DIALYSIS PATIENTS. CBC (HEMOGRAM ONLY)2018-08-23 06:39:00 Test Item Value Reference Range Comments WHITE BLOOD CELL COUNT (BEAKER) (test etmh=373) 5.5 K/ L 3.5-10.5 RED BLOOD CELL COUNT (BEAKER) (test mixr=896) 3.31 M/ L 3.93-5.22 HEMOGLOBIN (BEAKER) (test zlob=815) 10.4 GM/DL 11.2-15.7 HEMATOCRIT (BEAKER) (test jfxt=594) 34.9 % 34.1-44.9 MEAN CORPUSCULAR VOLUME (BEAKER) (test yoij=556) 105.4 fL 79.4-94.8 MEAN CORPUSCULAR HEMOGLOBIN (BEAKER) (test 31.4 pg 25.6-32.2 ucif=622) MEAN CORPUSCULAR HEMOGLOBIN CONC (BEAKER) (test 29.8 GM/DL 32.2-35.5 nvrx=060) RED CELL DISTRIBUTION WIDTH (BEAKER) (test 15.4 % 11.7-14.4 mcim=220) PLATELET COUNT (BEAKER) (test iojz=299) 185 K/CU MM 150-450 MEAN PLATELET VOLUME (BEAKER) (test hsfc=642) 8.9 fL 9.4-12.3 NUCLEATED RED BLOOD CELLS (BEAKER) (test 0 /100 WBC 0-0 ofcm=795) TISSUE [id number] 13:47:00Surgical Pathology Report Case: [id number] Authorizing Provider: Jani Alejandro MD Collected: 08/20/2018 1003 Ordering Location: [facility] PERIOPERATIVE [...] MARGINS, UNREMARKABLE Signing Pathologist Direct Phone Line: [phone] signed by Linda Mullen MD on 08/22/2018 [...] cytopathic changes are seen.IDC: Dr. Leslie Carballo conckourtney.22624Xparz's disease of small intestine without complication Right [...] folding and no masses or lesions identified. Steel Checker sections are submitted in 10 cassettes as follows.Ink code: Blue-one marginBlack-margin closest to anastomotic siteSection code: A1 - nutrition representative sections of both margins, differentially inked per the ink code A2-A5 - entire sections of ulcerative areaA6 - entire sections of hemorrhagic mucosal areaA7-A10 - nutrition representative sections of mucosaFR/ewPerformed.[id number] 06:10:00 Test Item Value Reference Range Comments PHOSPHORUS (BEAKER) (test zjgu=101) 2.3 mg/dL 2.3-4.7 [id number] 06:10:00 Test Item Value Reference Range Comments MAGNESIUM (BEAKER) (test lnee=333) 1.7 mg/dL 1.6-2.6 BASIC METABOLIC [id number] 06:10:00 Test Item Value Reference Range Comments SODIUM (BEAKER) (test 137 meq/L 136-145 wnhu=011) POTASSIUM (BEAKER) (test 3.8 meq/L 3.5-5.1 wujl=439) CHLORIDE (BEAKER) (test 105 meq/L 98-107 txpr=674) CO2 (BEAKER) (test 25 meq/L 22-29 dmob=515) BLOOD UREA NITROGEN 5 mg/dL 7-21 (BEAKER) (test vksx=228) CREATININE (BEAKER) (test 0.73 mg/dL 0.57-1.25 fquw=397) GLUCOSE RANDOM (BEAKER) 105 mg/dL 70-105 (test qgnq=091) CALCIUM (BEAKER) (test 8.6 mg/dL 8.4-10.2 dzko=147) EGFR (BEAKER) (test 86 mL/min/1.73 sq m ESTIMATED GFR IS NOT oxac=7087) ACCURATE CREATININE CLEARANCE IN PREDICTING GLOMERULAR FILTRATION RATE. ESTIMATED GFR IS NOT APPLICABLE FOR DIALYSIS PATIENTS. CBC (HEMOGRAM ONLY)2018-08-22 05:31:00 Test Item Value Reference Range Comments WHITE BLOOD CELL COUNT (BEAKER) (test gqnw=629) 7.8 K/ L 3.5-10.5 RED BLOOD CELL COUNT (BEAKER) (test rpgi=492) 3.65 M/ L 3.93-5.22 HEMOGLOBIN (BEAKER) (test caim=324) 11.5 GM/DL 11.2-15.7 HEMATOCRIT (BEAKER) (test wbsv=320) 37.1 % 34.1-44.9 MEAN CORPUSCULAR VOLUME (BEAKER) (test xbar=617) 101.6 fL 79.4-94.8 MEAN CORPUSCULAR HEMOGLOBIN (BEAKER) (test 31.5 pg 25.6-32.2 ylcx=518) MEAN CORPUSCULAR HEMOGLOBIN CONC (BEAKER) (test 31.0 GM/DL 32.2-35.5 voyx=062) RED CELL DISTRIBUTION WIDTH (BEAKER) (test 15.2 % 11.7-14.4 yuqr=377) PLATELET COUNT (BEAKER) (test dwxg=664) 215 K/CU MM 150-450 MEAN PLATELET VOLUME (BEAKER) (test tlpm=303) 8.8 fL 9.4-12.3 NUCLEATED RED BLOOD CELLS (BEAKER) (test 0 /100 WBC 0-0 jcwg=130) [id number] 03:34:00 Test Item Value Reference Range Comments PHOSPHORUS (BEAKER) (test jrom=077) 2.5 mg/dL 2.3-4.7 [id number] 03:34:00 Test Item Value Reference Range Comments MAGNESIUM (BEAKER) (test bhex=178) 1.9 mg/dL 1.6-2.6 BASIC METABOLIC [id number] 03:34:00 Test Item Value Reference Range Comments SODIUM (BEAKER) (test 138 meq/L 136-145 sedv=942) POTASSIUM (BEAKER) (test 3.9 meq/L 3.5-5.1 tkbx=423) CHLORIDE (BEAKER) (test 108 meq/L 98-107 pqjr=065) CO2 (BEAKER) (test 25 meq/L 22-29 xkvg=070) BLOOD UREA NITROGEN 5 mg/dL 7-21 (BEAKER) (test lnou=244) CREATININE (BEAKER) (test 0.67 mg/dL 0.57-1.25 sdxk=394) GLUCOSE RANDOM (BEAKER) 122 mg/dL 70-105 (test tmnb=436) CALCIUM (BEAKER) (test 8.4 mg/dL 8.4-10.2 teqa=378) EGFR (BEAKER) (test 95 mL/min/1.73 sq m ESTIMATED GFR IS NOT wwkn=6542) ACCURATE CREATININE CLEARANCE IN PREDICTING GLOMERULAR FILTRATION RATE. ESTIMATED GFR IS NOT APPLICABLE FOR DIALYSIS PATIENTS. CBC (HEMOGRAM ONLY)2018-08-21 03:17:00 Test Item Value Reference Range Comments WHITE BLOOD CELL COUNT (BEAKER) (test fzxa=136) 7.8 K/ L 3.5-10.5 RED BLOOD CELL COUNT (BEAKER) (test tezm=835) 3.65 M/ L 3.93-5.22 HEMOGLOBIN (BEAKER) (test rlhn=472) 11.4 GM/DL 11.2-15.7 HEMATOCRIT (BEAKER) (test mmsv=851) 36.3 % 34.1-44.9 MEAN CORPUSCULAR VOLUME (BEAKER) (test tqev=114) 99.5 fL 79.4-94.8 MEAN CORPUSCULAR HEMOGLOBIN (BEAKER) (test 31.2 pg 25.6-32.2 tdza=645) MEAN CORPUSCULAR HEMOGLOBIN CONC (BEAKER) (test 31.4 GM/DL 32.2-35.5 yhvv=886) RED CELL DISTRIBUTION WIDTH (BEAKER) (test 14.9 % 11.7-14.4 babh=468) PLATELET COUNT (BEAKER) (test zcgh=641) 204 K/CU MM 150-450 MEAN PLATELET VOLUME (BEAKER) (test hypl=008) 8.5 fL 9.4-12.3 NUCLEATED RED BLOOD CELLS (BEAKER) (test 0 /100 WBC 0-0 gsur=067) POCT-GLUCOSE [id number] 11:42:00 Test Item Value Reference Range Comments POC-GLUCOSE METER (BEAKER) 129 mg/dL 70-110 TESTED AT [address] (test eorz=9395) [facility] [address] POCT-GLUCOSE [id number] 06:28:00 Test Item Value Reference Range Comments POC-GLUCOSE METER (BEAKER) 102 mg/dL 70-110 TESTED AT [address] (test rppr=5077) [facility] [address] CT, [id number] 15:41:00FINAL REPORT CT abdomen and pelvis with [...] MDReport Verified Date/Time: 08/17/2018 15:41:17 Reading Location: [facility] Diagnostic Imaging Reading Room - [place] [address] STOOL CULTURE + SHIGA [id number] 15:37:00 Test Item Value Reference Range Comments CULTURE (BEAKER) (test No Salmonella, Shigella or lkbk=9255) Campylobacter isolated POCT-GLUCOSE [id number] 08:25:00 Test Item Value Reference Range Comments POC-GLUCOSE METER (BEAKER) 197 mg/dL 70-110 TESTED AT [facility] [address] [facility] [facility] (test eywr=5053) [facility] [address] [id number] 05:59:00 Test Item Value Reference Range Comments PHOSPHORUS (BEAKER) (test urlk=545) 3.6 mg/dL 2.3-4.7 [id number] 05:59:00 Test Item Value Reference Range Comments MAGNESIUM (BEAKER) (test klss=672) 2.3 mg/dL 1.6-2.6 BASIC METABOLIC [id number] 05:59:00 Test Item Value Reference Range Comments SODIUM (BEAKER) (test 137 meq/L 136-145 amqv=826) POTASSIUM (BEAKER) (test 4.7 meq/L 3.5-5.1 vyrq=631) CHLORIDE (BEAKER) (test 104 meq/L 98-107 ucrf=624) CO2 (BEAKER) (test 24 meq/L 22-29 ihys=600) BLOOD UREA NITROGEN 4 mg/dL 7-21 (BEAKER) (test rbtm=921) CREATININE (BEAKER) (test 0.74 mg/dL 0.57-1.25 tckz=538) GLUCOSE RANDOM (BEAKER) 144 mg/dL 70-105 (test zpta=244) CALCIUM (BEAKER) (test 9.0 mg/dL 8.4-10.2 xlmd=109) EGFR (BEAKER) (test 84 mL/min/1.73 sq m ESTIMATED GFR IS NOT thrj=2998) ACCURATE CREATININE CLEARANCE IN PREDICTING GLOMERULAR FILTRATION RATE. ESTIMATED GFR IS NOT APPLICABLE FOR DIALYSIS PATIENTS. HEPATIC FUNCTION [id number] 05:59:00 Test Item Value Reference Range Comments TOTAL PROTEIN (BEAKER) (test fvmq=817) 6.3 gm/dL 6.0-8.3 ALBUMIN (BEAKER) (test niug=5651) 3.9 g/dL 3.5-5.0 BILIRUBIN TOTAL (BEAKER) (test emta=582) 0.3 mg/dL 0.2-1.2 BILIRUBIN DIRECT (BEAKER) (test sjit=801) 0.1 mg/dL 0.1-0.5 ALKALINE PHOSPHATASE (BEAKER) (test udqw=502) 68 U/L 40-150 AST (SGOT) (BEAKER) (test nadn=584) 23 U/L 5-34 ALT (SGPT) (BEAKER) (test cqzg=380) 41 U/L 6-55 POCT-GLUCOSE [id number] 21:05:00 Test Item Value Reference Range Comments POC-GLUCOSE METER (BEAKER) 148 mg/dL 70-110 TESTED AT [facility] [address] [facility] [facility] (test pkgv=1086) [facility] [address] C. DIFFICILE GDH [id number] 15:59:00 Test Item Value Reference Range Comments CDT TOXIN (test Negative Negative fypu=[id number]) CDT GDH ANTIGEN (test Negative Negative No indication of Clostridium wytz=[id number]) difficile infection and no colonization. Discontinue enteric isolation and therapy. Testing performed by [employer] Rapid Cassette Assay. For GDH, published sensitivity of the assay is 98.7% compared to cytotoxicity testing. For Toxin AB, published sensitivity is 87.8% and specificity 99.4% compared to cytotoxicity testing.Verification of kit performance was done by the [facility] Microbiology Lab prior to clinical use.SHIGA TOXIN [id number] 14:22:00 Test Item Value Reference Range Comments SHIGA TOXIN 1 (BEAKER) (test yaiw=3615) Not detected Not detected SHIGA TOXIN 2 (BEAKER) (test adel=5500) Not detected Not detected POCT-GLUCOSE [id number] 13:13:00 Test Item Value Reference Range Comments POC-GLUCOSE METER (BEAKER) 119 mg/dL 70-110 TESTED AT [facility] [address] [place] [address] (test vroe=1601) [place] [id number] STOOL PATH [id number] 10:03:00 Test Item Value Reference Range Comments PATHOGEN EXAM CHARGED (BEAKER) (test qsyo=2160) Done POCT-GLUCOSE [id number] 09:13:00 Test Item Value Reference Range Comments POC-GLUCOSE METER (BEAKER) 111 mg/dL 70-110 TESTED AT [address] (test nazu=6320) [facility] [address] [id number] 06:09:00 Test Item Value Reference Range Comments PREALBUMIN (BEAKER) (test ovpx=369) 36 mg/dL 14-45 CBC W/PLT COUNT & AUTO [id number] 06:02:00 Test Item Value Reference Range Comments WHITE BLOOD CELL COUNT (BEAKER) (test xmrl=824) 8.2 K/ L 3.5-10.5 RED BLOOD CELL COUNT (BEAKER) (test fizj=246) 4.02 M/ L 3.93-5.22 HEMOGLOBIN (BEAKER) (test sxtw=677) 12.5 GM/DL 11.2-15.7 HEMATOCRIT (BEAKER) (test jaem=521) 39.7 % 34.1-44.9 MEAN CORPUSCULAR VOLUME (BEAKER) (test mnnh=227) 98.8 fL 79.4-94.8 MEAN CORPUSCULAR HEMOGLOBIN (BEAKER) (test 31.1 pg 25.6-32.2 pduh=769) MEAN CORPUSCULAR HEMOGLOBIN CONC (BEAKER) (test 31.5 GM/DL 32.2-35.5 gihx=886) RED CELL DISTRIBUTION WIDTH (BEAKER) (test 14.8 % 11.7-14.4 ainw=316) PLATELET COUNT (BEAKER) (test sxim=717) 322 K/CU MM 150-450 MEAN PLATELET VOLUME (BEAKER) (test ttnh=227) 8.6 fL 9.4-12.3 NUCLEATED RED BLOOD CELLS (BEAKER) (test 0 /100 WBC 0-0 hhgi=608) NEUTROPHILS RELATIVE PERCENT (BEAKER) (test 83 % vabq=790) LYMPHOCYTES RELATIVE PERCENT (BEAKER) (test 14 % kgkr=529) MONOCYTES RELATIVE PERCENT (BEAKER) (test 2 % phbw=647) EOSINOPHILS RELATIVE PERCENT (BEAKER) (test 0 % szar=589) BASOPHILS RELATIVE PERCENT (BEAKER) (test 0 % mjmq=449) NEUTROPHILS ABSOLUTE COUNT (BEAKER) (test 6.83 K/ L 1.56-6.13 jzme=072) LYMPHOCYTES ABSOLUTE COUNT (BEAKER) (test 1.16 K/ L 1.18-3.74 bzbv=606) MONOCYTES ABSOLUTE COUNT (BEAKER) (test 0.16 K/ L 0.24-0.36 jqzs=837) EOSINOPHILS ABSOLUTE COUNT (BEAKER) (test 0.00 K/ L 0.04-0.36 zfkl=567) BASOPHILS ABSOLUTE COUNT (BEAKER) (test 0.01 K/ L 0.01-0.08 ycxr=505) IMMATURE GRANULOCYTES-RELATIVE PERCENT (BEAKER) 1 % 0-1 (test gjgm=1939) [id number] 05:52:00 Test Item Value Reference Range Comments PHOSPHORUS (BEAKER) (test ugua=324) 4.0 mg/dL 2.3-4.7 [id number] 05:52:00 Test Item Value Reference Range Comments MAGNESIUM (BEAKER) (test sdqf=309) 2.3 mg/dL 1.6-2.6 BASIC METABOLIC [id number] 05:52:00 Test Item Value Reference Range Comments SODIUM (BEAKER) (test 139 meq/L 136-145 dtjt=338) POTASSIUM (BEAKER) (test 4.4 meq/L 3.5-5.1 lcsy=487) CHLORIDE (BEAKER) (test 104 meq/L 98-107 suzt=346) CO2 (BEAKER) (test 25 meq/L 22-29 evvy=771) BLOOD UREA NITROGEN 5 mg/dL 7-21 (BEAKER) (test nzrb=636) CREATININE (BEAKER) (test 0.78 mg/dL 0.57-1.25 qcpo=351) GLUCOSE RANDOM (BEAKER) 172 mg/dL 70-105 (test dieg=320) CALCIUM (BEAKER) (test 9.0 mg/dL 8.4-10.2 nmci=303) EGFR (BEAKER) (test 80 mL/min/1.73 sq m ESTIMATED GFR IS NOT jmtj=3692) ACCURATE CREATININE CLEARANCE IN PREDICTING GLOMERULAR FILTRATION RATE. ESTIMATED GFR IS NOT APPLICABLE FOR DIALYSIS PATIENTS. HEPATIC FUNCTION [id number] 05:52:00 Test Item Value Reference Range Comments TOTAL PROTEIN (BEAKER) (test cgzy=718) 6.4 gm/dL 6.0-8.3 ALBUMIN (BEAKER) (test mpkr=6223) 3.9 g/dL 3.5-5.0 BILIRUBIN TOTAL (BEAKER) (test dgen=016) 0.2 mg/dL 0.2-1.2 BILIRUBIN DIRECT (BEAKER) (test tmgu=635) 0.1 mg/dL 0.1-0.5 ALKALINE PHOSPHATASE (BEAKER) (test fede=803) 68 U/L 40-150 AST (SGOT) (BEAKER) (test jgtx=944) 12 U/L 5-34 ALT (SGPT) (BEAKER) (test wvqh=041) 29 U/L 6-55 C-REACTIVE [id number] 05:52:00 Test Item Value Reference Range Comments C-REACTIVE PROTEIN (BEAKER) (test qlpr=080) 0.22 mg/dL 0.00-0.50 POCT-GLUCOSE [id number] 23:39:00 Test Item Value Reference Range Comments POC-GLUCOSE METER (BEAKER) 122 mg/dL 70-110 TESTED AT [facility] [address] [place] [address] (test ikxa=0260) [facility] [address] [address], [id number] 04:05:00FINAL REPORT CLINICAL HISTORY: Acute abdominal pain, [...] MDReport Verified Date/Time: 07/21/2018 04:05:05 Reading Location: [address] Reading Room [id number] 22:00:00 Test Item Value Reference Range Comments LIPASE (BEAKER) (test rpxb=931) 12 U/L 8-78 COMPREHENSIVE METABOLIC [id number] 22:00:00 Test Item Value Reference Range Comments TOTAL PROTEIN (BEAKER) 5.6 gm/dL 6.0-8.3 (test mpll=400) ALBUMIN (BEAKER) (test 3.5 g/dL 3.5-5.0 ndmd=6426) ALKALINE PHOSPHATASE 54 U/L 40-150 (BEAKER) (test kbte=212) BILIRUBIN TOTAL (BEAKER) 0.2 mg/dL 0.2-1.2 (test rokl=755) SODIUM (BEAKER) (test 143 meq/L 136-145 llzf=684) POTASSIUM (BEAKER) (test 3.9 meq/L 3.5-5.1 adhw=210) CHLORIDE (BEAKER) (test 106 meq/L 98-107 pgvr=341) CO2 (BEAKER) (test 27 meq/L 22-29 nhng=345) BLOOD UREA NITROGEN 12 mg/dL 7-21 (BEAKER) (test uugo=416) CREATININE (BEAKER) (test 0.76 mg/dL 0.57-1.25 qeld=264) GLUCOSE RANDOM (BEAKER) 84 mg/dL 70-105 (test fdzk=466) CALCIUM (BEAKER) (test 8.5 mg/dL 8.4-10.2 gahy=788) AST (SGOT) (BEAKER) (test 13 U/L 5-34 gumn=923) ALT (SGPT) (BEAKER) (test 27 U/L 6-55 nxsq=737) EGFR (BEAKER) (test 82 mL/min/1.73 sq m ESTIMATED GFR IS NOT rhhf=1950) ACCURATE CREATININE CLEARANCE IN PREDICTING GLOMERULAR FILTRATION RATE. ESTIMATED GFR IS NOT APPLICABLE FOR DIALYSIS PATIENTS. [id number] 21:55:00 Test Item Value Reference Range Comments PARTIAL THROMBOPLASTIN TIME (BEAKER) (test 24.6 seconds 22.5-36.0 rysp=884) PROTHROMBIN [id number] 21:53:00 Test Item Value Reference Range Comments PROTIME (BEAKER) (test tufz=356) 13.2 seconds 11.7-14.7 INR (BEAKER) (test fmga=311) 1.0 <=5.9 RECOMMENDED COUMADIN/WARFARIN INR THERAPY RANGESSTANDARD DOSE: 2.0 - 3.0 Includes: PROPHYLAXIS forvenous thrombosis, systemic embolization; TREATMENT for venous thrombosis and/or pulmonary embolus.HIGH RISK: Target INR is 2.5-3.5 for patients with mechanical heart valves.CBC W/PLT COUNT & AUTO [id number] 21:44:00 Test Item Value Reference Range Comments WHITE BLOOD CELL COUNT (BEAKER) (test drju=599) 10.8 K/ L 3.5-10.5 RED BLOOD CELL COUNT (BEAKER) (test xcoj=208) 3.58 M/ L 3.93-5.22 HEMOGLOBIN (BEAKER) (test pfgx=545) 11.1 GM/DL 11.2-15.7 HEMATOCRIT (BEAKER) (test zblf=445) 35.1 % 34.1-44.9 MEAN CORPUSCULAR VOLUME (BEAKER) (test wbus=780) 98.0 fL 79.4-94.8 MEAN CORPUSCULAR HEMOGLOBIN (BEAKER) (test 31.0 pg 25.6-32.2 mefb=217) MEAN CORPUSCULAR HEMOGLOBIN CONC (BEAKER) (test 31.6 GM/DL 32.2-35.5 umza=457) RED CELL DISTRIBUTION WIDTH (BEAKER) (test 15.1 % 11.7-14.4 upbz=944) PLATELET COUNT (BEAKER) (test rfrs=022) 245 K/CU MM 150-450 MEAN PLATELET VOLUME (BEAKER) (test raud=019) 8.6 fL 9.4-12.3 NUCLEATED RED BLOOD CELLS (BEAKER) (test 0 /100 WBC 0-0 tche=555) NEUTROPHILS RELATIVE PERCENT (BEAKER) (test 73 % qcdh=678) LYMPHOCYTES RELATIVE PERCENT (BEAKER) (test 20 % icmv=053) MONOCYTES RELATIVE PERCENT (BEAKER) (test 6 % mgaa=619) EOSINOPHILS RELATIVE PERCENT (BEAKER) (test 0 % wtql=589) BASOPHILS RELATIVE PERCENT (BEAKER) (test 0 % ausy=548) NEUTROPHILS ABSOLUTE COUNT (BEAKER) (test 7.89 K/ L 1.56-6.13 kvnf=804) LYMPHOCYTES ABSOLUTE COUNT (BEAKER) (test 2.13 K/ L 1.18-3.74 pzvt=365) MONOCYTES ABSOLUTE COUNT (BEAKER) (test 0.65 K/ L 0.24-0.36 djhb=242) EOSINOPHILS ABSOLUTE COUNT (BEAKER) (test 0.01 K/ L 0.04-0.36 bzyg=908) BASOPHILS ABSOLUTE COUNT (BEAKER) (test 0.01 K/ L 0.01-0.08 ppiy=142) IMMATURE GRANULOCYTES-RELATIVE PERCENT (BEAKER) 1 % 0-1 (test kgcy=9105) TISSUE [id number] 09:23:00Surgical Pathology Report Case: [id number] Authorizing Provider: King Huynh MD Collected: 07/11/2018 0924 Ordering Location: [address] Received: 07/11/2018 1421 Service Pathologist: Linda [...] AND COMMENT) Signing Pathologist Direct Phone Line: [phone] signed by Linda Mullen MD on 07/12/2018 at 9:23 AMPatient's history of Crohn's disease is noted per Epic note dated 07/10/18. The current sampling shows no significant active or chronic colitis. This may represent complete histologic resolution following treatment. Clinical and endoscopic correlation is recommended.[id number] abdominal pain A. Random colon biopsy. B. [...] noted. No dysplasia or carcinoma is present.BLOOD [id number] 20:01:00 Test Item Value Reference Range Comments CULTURE (BEAKER) (test rwfw=8723) No growth in 5 days BLOOD [id number] 20:01:00 Test Item Value Reference Range Comments CULTURE (BEAKER) (test bxps=0961) No growth in 5 days BASIC METABOLIC [id number] 04:55:00 Test Item Value Reference Range Comments SODIUM (BEAKER) (test 145 meq/L 136-145 zdfm=077) POTASSIUM (BEAKER) (test 4.0 meq/L 3.5-5.1 lfkd=353) CHLORIDE (BEAKER) (test 111 meq/L 98-107 lvab=224) CO2 (BEAKER) (test 27 meq/L 22-29 vzhs=438) BLOOD UREA NITROGEN 2 mg/dL 7-21 (BEAKER) (test wizj=280) CREATININE (BEAKER) (test 0.68 mg/dL 0.57-1.25 jein=417) GLUCOSE RANDOM (BEAKER) 100 mg/dL 70-105 (test drnq=684) CALCIUM (BEAKER) (test 9.0 mg/dL 8.4-10.2 gvox=144) EGFR (BEAKER) (test 93 mL/min/1.73 sq m ESTIMATED GFR IS NOT bzmr=2240) ACCURATE CREATININE CLEARANCE IN PREDICTING GLOMERULAR FILTRATION RATE. ESTIMATED GFR IS NOT APPLICABLE FOR DIALYSIS PATIENTS. CBC W/PLT COUNT & AUTO [id number] 04:37:00 Test Item Value Reference Range Comments WHITE BLOOD CELL COUNT (BEAKER) (test pbkx=857) 6.3 K/ L 3.5-10.5 RED BLOOD CELL COUNT (BEAKER) (test jtxa=127) 3.92 M/ L 3.93-5.22 HEMOGLOBIN (BEAKER) (test rsmi=406) 12.0 GM/DL 11.2-15.7 HEMATOCRIT (BEAKER) (test flut=270) 38.3 % 34.1-44.9 MEAN CORPUSCULAR VOLUME (BEAKER) (test achc=496) 97.7 fL 79.4-94.8 MEAN CORPUSCULAR HEMOGLOBIN (BEAKER) (test 30.6 pg 25.6-32.2 ltdg=975) MEAN CORPUSCULAR HEMOGLOBIN CONC (BEAKER) (test 31.3 GM/DL 32.2-35.5 jupm=668) RED CELL DISTRIBUTION WIDTH (BEAKER) (test 13.5 % 11.7-14.4 kmad=614) PLATELET COUNT (BEAKER) (test anja=607) 220 K/CU MM 150-450 MEAN PLATELET VOLUME (BEAKER) (test lvvp=113) 9.6 fL 9.4-12.3 NUCLEATED RED BLOOD CELLS (BEAKER) (test 0 /100 WBC 0-0 kosz=227) NEUTROPHILS RELATIVE PERCENT (BEAKER) (test 76 % ocmm=011) LYMPHOCYTES RELATIVE PERCENT (BEAKER) (test 20 % idwv=976) MONOCYTES RELATIVE PERCENT (BEAKER) (test 3 % rpli=345) EOSINOPHILS RELATIVE PERCENT (BEAKER) (test 0 % risn=663) BASOPHILS RELATIVE PERCENT (BEAKER) (test 0 % loje=595) NEUTROPHILS ABSOLUTE COUNT (BEAKER) (test 4.80 K/ L 1.56-6.13 jftr=585) LYMPHOCYTES ABSOLUTE COUNT (BEAKER) (test 1.26 K/ L 1.18-3.74 gkmi=028) MONOCYTES ABSOLUTE COUNT (BEAKER) (test 0.20 K/ L 0.24-0.36 qnux=405) EOSINOPHILS ABSOLUTE COUNT (BEAKER) (test 0.00 K/ L 0.04-0.36 xuud=717) BASOPHILS ABSOLUTE COUNT (BEAKER) (test 0.01 K/ L 0.01-0.08 vlbg=449) IMMATURE GRANULOCYTES-RELATIVE PERCENT (BEAKER) 1 % 0-1 (test rsbv=1233) BASIC METABOLIC [id number] 06:15:00 Test Item Value Reference Range Comments SODIUM (BEAKER) (test 144 meq/L 136-145 vpst=182) POTASSIUM (BEAKER) (test 4.3 meq/L 3.5-5.1 Specimen slightly vsnq=539) hemolyzed CHLORIDE (BEAKER) (test 113 meq/L 98-107 jcck=886) CO2 (BEAKER) (test 24 meq/L 22-29 qqfx=897) BLOOD UREA NITROGEN 3 mg/dL 7-21 (BEAKER) (test ehqv=343) CREATININE (BEAKER) (test 0.72 mg/dL 0.57-1.25 Specimen slightly zlqs=104) hemolyzed GLUCOSE RANDOM (BEAKER) 138 mg/dL 70-105 (test lieu=644) CALCIUM (BEAKER) (test 9.3 mg/dL 8.4-10.2 ngtf=494) EGFR (BEAKER) (test 87 mL/min/1.73 sq m ESTIMATED GFR IS NOT oria=5237) ACCURATE CREATININE CLEARANCE IN PREDICTING GLOMERULAR FILTRATION RATE. ESTIMATED GFR IS NOT APPLICABLE FOR DIALYSIS PATIENTS. CBC W/PLT COUNT & AUTO [id number] 06:06:00 Test Item Value Reference Range Comments WHITE BLOOD CELL COUNT (BEAKER) (test iahi=073) 7.5 K/ L 3.5-10.5 RED BLOOD CELL COUNT (BEAKER) (test gzyp=643) 4.07 M/ L 3.93-5.22 HEMOGLOBIN (BEAKER) (test xkza=107) 12.9 GM/DL 11.2-15.7 HEMATOCRIT (BEAKER) (test vokv=021) 40.3 % 34.1-44.9 MEAN CORPUSCULAR VOLUME (BEAKER) (test ebir=499) 99.0 fL 79.4-94.8 MEAN CORPUSCULAR HEMOGLOBIN (BEAKER) (test 31.7 pg 25.6-32.2 dvkd=134) MEAN CORPUSCULAR HEMOGLOBIN CONC (BEAKER) (test 32.0 GM/DL 32.2-35.5 nulj=959) RED CELL DISTRIBUTION WIDTH (BEAKER) (test 13.3 % 11.7-14.4 eskn=737) PLATELET COUNT (BEAKER) (test megr=159) 191 K/CU MM 150-450 MEAN PLATELET VOLUME (BEAKER) (test ezgi=892) 9.9 fL 9.4-12.3 NUCLEATED RED BLOOD CELLS (BEAKER) (test 0 /100 WBC 0-0 wrfb=244) NEUTROPHILS RELATIVE PERCENT (BEAKER) (test 70 % kcna=585) LYMPHOCYTES RELATIVE PERCENT (BEAKER) (test 24 % kafr=827) MONOCYTES RELATIVE PERCENT (BEAKER) (test 5 % vglo=101) EOSINOPHILS RELATIVE PERCENT (BEAKER) (test 0 % xkwu=510) BASOPHILS RELATIVE PERCENT (BEAKER) (test 0 % clvw=064) NEUTROPHILS ABSOLUTE COUNT (BEAKER) (test 5.25 K/ L 1.56-6.13 tzfz=782) LYMPHOCYTES ABSOLUTE COUNT (BEAKER) (test 1.83 K/ L 1.18-3.74 elwa=100) MONOCYTES ABSOLUTE COUNT (BEAKER) (test 0.37 K/ L 0.24-0.36 zigr=365) EOSINOPHILS ABSOLUTE COUNT (BEAKER) (test 0.02 K/ L 0.04-0.36 vkks=631) BASOPHILS ABSOLUTE COUNT (BEAKER) (test 0.01 K/ L 0.01-0.08 erha=881) IMMATURE GRANULOCYTES-RELATIVE PERCENT (BEAKER) 0 % 0-1 (test ikrp=9742) STOOL CULTURE + SHIGA [id number] 12:15:00 Test Item Value Reference Range Comments CULTURE (BEAKER) (test No Salmonella, Shigella or nqzh=8063) Campylobacter isolated BASIC METABOLIC [id number] 07:08:00 Test Item Value Reference Range Comments SODIUM (BEAKER) (test 143 meq/L 136-145 eqld=767) POTASSIUM (BEAKER) (test 4.2 meq/L 3.5-5.1 kvxv=534) CHLORIDE (BEAKER) (test 111 meq/L 98-107 zqgf=383) CO2 (BEAKER) (test 25 meq/L 22-29 lgto=254) BLOOD UREA NITROGEN 3 mg/dL 7-21 (BEAKER) (test hosv=280) CREATININE (BEAKER) (test 0.67 mg/dL 0.57-1.25 oszo=519) GLUCOSE RANDOM (BEAKER) 106 mg/dL 70-105 (test hxte=776) CALCIUM (BEAKER) (test 9.2 mg/dL 8.4-10.2 aoww=917) EGFR (BEAKER) (test 95 mL/min/1.73 sq m ESTIMATED GFR IS NOT mxmv=1696) ACCURATE CREATININE CLEARANCE IN PREDICTING GLOMERULAR FILTRATION RATE. ESTIMATED GFR IS NOT APPLICABLE FOR DIALYSIS PATIENTS. CBC W/PLT COUNT & AUTO [id number] 06:42:00 Test Item Value Reference Range Comments WHITE BLOOD CELL COUNT (BEAKER) (test pzev=696) 6.2 K/ L 3.5-10.5 RED BLOOD CELL COUNT (BEAKER) (test qlyq=279) 4.29 M/ L 3.93-5.22 HEMOGLOBIN (BEAKER) (test ztqt=773) 13.4 GM/DL 11.2-15.7 HEMATOCRIT (BEAKER) (test wtyx=911) 41.1 % 34.1-44.9 MEAN CORPUSCULAR VOLUME (BEAKER) (test pric=602) 95.8 fL 79.4-94.8 MEAN CORPUSCULAR HEMOGLOBIN (BEAKER) (test 31.2 pg 25.6-32.2 lxcp=227) MEAN CORPUSCULAR HEMOGLOBIN CONC (BEAKER) (test 32.6 GM/DL 32.2-35.5 zomg=670) RED CELL DISTRIBUTION WIDTH (BEAKER) (test 13.1 % 11.7-14.4 vfad=287) PLATELET COUNT (BEAKER) (test feza=840) 232 K/CU MM 150-450 MEAN PLATELET VOLUME (BEAKER) (test pgov=106) 9.0 fL 9.4-12.3 NUCLEATED RED BLOOD CELLS (BEAKER) (test 0 /100 WBC 0-0 hdzh=831) NEUTROPHILS RELATIVE PERCENT (BEAKER) (test 67 % acww=382) LYMPHOCYTES RELATIVE PERCENT (BEAKER) (test 27 % mbsx=145) MONOCYTES RELATIVE PERCENT (BEAKER) (test 5 % psxd=284) EOSINOPHILS RELATIVE PERCENT (BEAKER) (test 0 % nald=525) BASOPHILS RELATIVE PERCENT (BEAKER) (test 0 % fxji=232) NEUTROPHILS ABSOLUTE COUNT (BEAKER) (test 4.18 K/ L 1.56-6.13 pjts=098) LYMPHOCYTES ABSOLUTE COUNT (BEAKER) (test 1.69 K/ L 1.18-3.74 tjtg=748) MONOCYTES ABSOLUTE COUNT (BEAKER) (test 0.29 K/ L 0.24-0.36 jfpk=114) EOSINOPHILS ABSOLUTE COUNT (BEAKER) (test 0.01 K/ L 0.04-0.36 ferr=366) BASOPHILS ABSOLUTE COUNT (BEAKER) (test 0.02 K/ L 0.01-0.08 ryqh=954) IMMATURE GRANULOCYTES-RELATIVE PERCENT (BEAKER) 1 % 0-1 (test kndg=8295) CT, ABDOMEN - PELVIS, [id number] 14:17:00Reason for exam:-> Evaluation of small bowel [...] lesion demonstrated. Endplate degenerative change at L1-2 [id number] noted. There is an implanted pump in the right lower quadrant subcutaneous fat with a lead going to the thecal sac terminating at the T11 level. IMPRESSION: Evidence of acute colitis of the sigmoid colon. No small bowel enteritis demonstrated. No stricture, fistula, or intramesenteric abscess demonstrated. Signed: Vicente Montero MDReport Verified Date/Time: 07/08/2018 14:17:31 Reading Location: [facility] [id number] Ortho Consult Reading Room [facility] METABOLIC [id number] 06:53:00 Test Item Value Reference Range Comments SODIUM (BEAKER) (test 137 meq/L 136-145 hhjt=321) POTASSIUM (BEAKER) (test 4.2 meq/L 3.5-5.1 bcjb=844) CHLORIDE (BEAKER) (test 105 meq/L 98-107 nvga=630) CO2 (BEAKER) (test 23 meq/L 22-29 wpey=509) BLOOD UREA NITROGEN 3 mg/dL 7-21 (BEAKER) (test zoyh=849) CREATININE (BEAKER) (test 0.75 mg/dL 0.57-1.25 ucya=671) GLUCOSE RANDOM (BEAKER) 85 mg/dL 70-105 (test dtjx=725) CALCIUM (BEAKER) (test 8.6 mg/dL 8.4-10.2 qzea=641) EGFR (BEAKER) (test 83 mL/min/1.73 sq m ESTIMATED GFR IS NOT btus=2177) ACCURATE CREATININE CLEARANCE IN PREDICTING GLOMERULAR FILTRATION RATE. ESTIMATED GFR IS NOT APPLICABLE FOR DIALYSIS PATIENTS. CBC W/PLT COUNT & AUTO [id number] 06:25:00 Test Item Value Reference Range Comments WHITE BLOOD CELL COUNT (BEAKER) (test aici=637) 5.3 K/ L 3.5-10.5 RED BLOOD CELL COUNT (BEAKER) (test inid=528) 4.11 M/ L 3.93-5.22 HEMOGLOBIN (BEAKER) (test aibf=286) 12.8 GM/DL 11.2-15.7 HEMATOCRIT (BEAKER) (test ekws=664) 40.4 % 34.1-44.9 MEAN CORPUSCULAR VOLUME (BEAKER) (test cawt=476) 98.3 fL 79.4-94.8 MEAN CORPUSCULAR HEMOGLOBIN (BEAKER) (test 31.1 pg 25.6-32.2 rvno=573) MEAN CORPUSCULAR HEMOGLOBIN CONC (BEAKER) (test 31.7 GM/DL 32.2-35.5 nzzb=919) RED CELL DISTRIBUTION WIDTH (BEAKER) (test 13.7 % 11.7-14.4 jgkc=739) PLATELET COUNT (BEAKER) (test wbnm=355) 213 K/CU MM 150-450 MEAN PLATELET VOLUME (BEAKER) (test dunw=227) 8.9 fL 9.4-12.3 NUCLEATED RED BLOOD CELLS (BEAKER) (test 0 /100 WBC 0-0 msxr=068) NEUTROPHILS RELATIVE PERCENT (BEAKER) (test 47 % khke=406) LYMPHOCYTES RELATIVE PERCENT (BEAKER) (test 39 % nird=511) MONOCYTES RELATIVE PERCENT (BEAKER) (test 9 % gsqd=855) EOSINOPHILS RELATIVE PERCENT (BEAKER) (test 5 % cpdv=675) BASOPHILS RELATIVE PERCENT (BEAKER) (test 0 % xkvo=192) NEUTROPHILS ABSOLUTE COUNT (BEAKER) (test 2.48 K/ L 1.56-6.13 dkad=484) LYMPHOCYTES ABSOLUTE COUNT (BEAKER) (test 2.04 K/ L 1.18-3.74 fwcz=902) MONOCYTES ABSOLUTE COUNT (BEAKER) (test 0.45 K/ L 0.24-0.36 emwh=317) EOSINOPHILS ABSOLUTE COUNT (BEAKER) (test 0.26 K/ L 0.04-0.36 eltz=768) BASOPHILS ABSOLUTE COUNT (BEAKER) (test 0.02 K/ L 0.01-0.08 pqmm=008) IMMATURE GRANULOCYTES-RELATIVE PERCENT (BEAKER) 0 % 0-1 (test aith=4428) SHIGA TOXIN [id number] 13:53:00 Test Item Value Reference Range Comments SHIGA TOXIN 1 (BEAKER) (test pmdw=1456) Not detected Not detected SHIGA TOXIN 2 (BEAKER) (test wvjj=3811) Not detected Not detected C. DIFFICILE GDH [id number] 13:28:00 Test Item Value Reference Range Comments CDT TOXIN (test Negative Negative lves=[id number]) CDT GDH ANTIGEN (test Negative Negative No indication of Clostridium ujuv=[id number]) difficile infection and no colonization. Discontinue enteric isolation and therapy. Testing performed by [employer] Rapid Cassette Assay. For GDH, published sensitivity of the assay is 98.7% compared to cytotoxicity testing. For Toxin AB, published sensitivity is 87.8% and specificity 99.4% compared to cytotoxicity testing.Verification of kit performance was done by the [facility] Microbiology Lab prior to clinical use.STOOL PATH [id number] 10:17:00 Test Item Value Reference Range Comments PATHOGEN EXAM CHARGED (BEAKER) (test euxy=6576) Done BASIC METABOLIC [id number] 05:17:00 Test Item Value Reference Range Comments SODIUM (BEAKER) (test 142 meq/L 136-145 pjdz=669) POTASSIUM (BEAKER) (test 4.3 meq/L 3.5-5.1 vcjr=911) CHLORIDE (BEAKER) (test 110 meq/L 98-107 blnf=775) CO2 (BEAKER) (test 25 meq/L 22-29 rsvu=200) BLOOD UREA NITROGEN 5 mg/dL 7-21 (BEAKER) (test hpdh=969) CREATININE (BEAKER) (test 0.78 mg/dL 0.57-1.25 jkti=581) GLUCOSE RANDOM (BEAKER) 108 mg/dL 70-105 (test kebi=959) CALCIUM (BEAKER) (test 8.9 mg/dL 8.4-10.2 nadm=650) EGFR (BEAKER) (test 80 mL/min/1.73 sq m ESTIMATED GFR IS NOT idqi=0622) ACCURATE CREATININE CLEARANCE IN PREDICTING GLOMERULAR FILTRATION RATE. ESTIMATED GFR IS NOT APPLICABLE FOR DIALYSIS PATIENTS. CBC W/PLT COUNT & AUTO [id number] 04:58:00 Test Item Value Reference Range Comments WHITE BLOOD CELL COUNT (BEAKER) (test fiom=860) 4.8 K/ L 3.5-10.5 RED BLOOD CELL COUNT (BEAKER) (test vels=582) 3.79 M/ L 3.93-5.22 HEMOGLOBIN (BEAKER) (test bchj=225) 11.8 GM/DL 11.2-15.7 HEMATOCRIT (BEAKER) (test bovw=481) 37.6 % 34.1-44.9 MEAN CORPUSCULAR VOLUME (BEAKER) (test gpsk=415) 99.2 fL 79.4-94.8 MEAN CORPUSCULAR HEMOGLOBIN (BEAKER) (test 31.1 pg 25.6-32.2 csrl=827) MEAN CORPUSCULAR HEMOGLOBIN CONC (BEAKER) (test 31.4 GM/DL 32.2-35.5 nyzz=001) RED CELL DISTRIBUTION WIDTH (BEAKER) (test 14.5 % 11.7-14.4 yvif=374) PLATELET COUNT (BEAKER) (test douv=759) 216 K/CU MM 150-450 MEAN PLATELET VOLUME (BEAKER) (test xjdy=833) 9.3 fL 9.4-12.3 NUCLEATED RED BLOOD CELLS (BEAKER) (test 0 /100 WBC 0-0 zytu=322) NEUTROPHILS RELATIVE PERCENT (BEAKER) (test 44 % vdmq=150) LYMPHOCYTES RELATIVE PERCENT (BEAKER) (test 44 % jbye=140) MONOCYTES RELATIVE PERCENT (BEAKER) (test 6 % znay=405) EOSINOPHILS RELATIVE PERCENT (BEAKER) (test 5 % nsug=206) BASOPHILS RELATIVE PERCENT (BEAKER) (test 0 % noto=776) NEUTROPHILS ABSOLUTE COUNT (BEAKER) (test 2.14 K/ L 1.56-6.13 tdaj=470) LYMPHOCYTES ABSOLUTE COUNT (BEAKER) (test 2.12 K/ L 1.18-3.74 gfxw=114) MONOCYTES ABSOLUTE COUNT (BEAKER) (test 0.31 K/ L 0.24-0.36 qgfe=957) EOSINOPHILS ABSOLUTE COUNT (BEAKER) (test 0.24 K/ L 0.04-0.36 toqj=557) BASOPHILS ABSOLUTE COUNT (BEAKER) (test 0.01 K/ L 0.01-0.08 slla=721) IMMATURE GRANULOCYTES-RELATIVE PERCENT (BEAKER) 0 % 0-1 (test kbpa=7023) RAD, CHEST, 1 VIEW, NON [id number] 14:21:00Reason for exam:->FeverShould this be performed at the bedside?->YesFINAL REPORT TECHNIQUE: Frontal chest radiograph dated 07/06/2018. CLINICAL HISTORY: Fever COMPARISON STUDY: None IMPRESSION:Lungs are clear. No pleural effusion or pneumothorax. Cardiomediastinal silhouette is normal in size. No pulmonary edema. No fracture. Signed: Xiao Mckinney MDReport Verified Date/Time: 11/2018 14:21:04 Reading Location: [facility] Radiology Reading Room RAPID DRUG SCREEN , [id number] 12:52:00 Test Item Value Reference Range Comments BARBITURATE URINE (BEAKER) (test lytv=222) Negative Negative BENZODIAZEPINE SCREEN URINE (BEAKER) (test Positive Negative dbcd=921) COCAINE (METAB.) SCREEN (BEAKER) (test cote=2345) Negative Negative METHADONE SCREEN (BEAKER) (test omet=1183) Negative Negative OPIATE SCREEN URINE (BEAKER) (test vljx=482) Positive Negative CANNABINOID SCREEN URINE (BEAKER) (test ozzu=511) Negative Negative AMPH/METHAMPH SCREEN (BEAKER) (test ljrr=4691) Negative Negative PHENCYCLIDINE SCREEN URINE (BEAKER) (test xxdf=523) Negative Negative OXYCODONE SCREEN URINE (BEAKER) (test vxdw=2005) Negative Negative DRUG CUTOFF CONC.Cocaine 300 ng/mL Cannabinoid 50 ng/mL Benzodiazepine 200 ng/mLBarbiturate 200 ng/ mLPhencyclidine 25 ng/mLOpiate 300 ng/mLMethadone 300 ng/mLAmphetamine/ 1000 ng/mL MethamphetamineOxycodone 300 ng/mLThis assay provides an unconfirmed qualitative test result for the clinical management of patients in emergency situations. Chain of custody not maintained. Some gvbd-mee-iqbsnix medications, as well as adulterants, may cause inaccurate results. Clinical correlation should be applied. A more comprehensive drug screen or confirmation of a detected drug may be performed upon request.CBC W/PLT COUNT & AUTO [id number] 12:40:00 Test Item Value Reference Range Comments WHITE BLOOD CELL COUNT (BEAKER) (test iptn=098) 8.7 K/ L 3.5-10.5 RED BLOOD CELL COUNT (BEAKER) (test dcjx=632) 4.01 M/ L 3.93-5.22 HEMOGLOBIN (BEAKER) (test gsac=620) 12.6 GM/DL 11.2-15.7 HEMATOCRIT (BEAKER) (test tnpd=110) 39.3 % 34.1-44.9 MEAN CORPUSCULAR VOLUME (BEAKER) (test tjpu=487) 98.0 fL 79.4-94.8 MEAN CORPUSCULAR HEMOGLOBIN (BEAKER) (test 31.4 pg 25.6-32.2 ypme=644) MEAN CORPUSCULAR HEMOGLOBIN CONC (BEAKER) (test 32.1 GM/DL 32.2-35.5 dqvd=292) RED CELL DISTRIBUTION WIDTH (BEAKER) (test 14.3 % 11.7-14.4 kxfg=707) PLATELET COUNT (BEAKER) (test uqpf=982) 212 K/CU MM 150-450 MEAN PLATELET VOLUME (BEAKER) (test vhse=089) 10.0 fL 9.4-12.3 NUCLEATED RED BLOOD CELLS (BEAKER) (test 0 /100 WBC 0-0 fcqk=926) NEUTROPHILS RELATIVE PERCENT (BEAKER) (test 65 % zbeg=640) LYMPHOCYTES RELATIVE PERCENT (BEAKER) (test 25 % zsbj=766) MONOCYTES RELATIVE PERCENT (BEAKER) (test 7 % urvg=914) EOSINOPHILS RELATIVE PERCENT (BEAKER) (test 2 % hlac=065) BASOPHILS RELATIVE PERCENT (BEAKER) (test 0 % jbqk=852) NEUTROPHILS ABSOLUTE COUNT (BEAKER) (test 5.70 K/ L 1.56-6.13 yltp=985) LYMPHOCYTES ABSOLUTE COUNT (BEAKER) (test 2.18 K/ L 1.18-3.74 mvnd=611) MONOCYTES ABSOLUTE COUNT (BEAKER) (test 0.59 K/ L 0.24-0.36 bmin=170) EOSINOPHILS ABSOLUTE COUNT (BEAKER) (test 0.17 K/ L 0.04-0.36 bnuh=481) BASOPHILS ABSOLUTE COUNT (BEAKER) (test 0.02 K/ L 0.01-0.08 fvlv=123) IMMATURE GRANULOCYTES-RELATIVE PERCENT (BEAKER) 1 % 0-1 (test ggdk=8358) [id number] 12:12:00 Test Item Value Reference Range Comments PHOSPHORUS (BEAKER) (test asvx=188) 3.0 mg/dL 2.3-4.7 [id number] 12:12:00 Test Item Value Reference Range Comments MAGNESIUM (BEAKER) (test aixg=176) 2.1 mg/dL 1.6-2.6 BASIC METABOLIC [id number] 12:12:00 Test Item Value Reference Range Comments SODIUM (BEAKER) (test 138 meq/L 136-145 uhuq=003) POTASSIUM (BEAKER) (test 3.7 meq/L 3.5-5.1 bzht=050) CHLORIDE (BEAKER) (test 104 meq/L 98-107 bplc=269) CO2 (BEAKER) (test 25 meq/L 22-29 uerj=459) BLOOD UREA NITROGEN 8 mg/dL 7-21 (BEAKER) (test ltdy=897) CREATININE (BEAKER) (test 0.72 mg/dL 0.57-1.25 spbb=554) GLUCOSE RANDOM (BEAKER) 93 mg/dL 70-105 (test ljhn=961) CALCIUM (BEAKER) (test 9.1 mg/dL 8.4-10.2 xmqr=780) EGFR (BEAKER) (test 87 mL/min/1.73 sq m ESTIMATED GFR IS NOT tsak=3262) ACCURATE CREATININE CLEARANCE IN PREDICTING GLOMERULAR FILTRATION RATE. ESTIMATED GFR IS NOT APPLICABLE FOR DIALYSIS PATIENTS. HEPATIC FUNCTION [id number] 12:12:00 Test Item Value Reference Range Comments TOTAL PROTEIN (BEAKER) (test lbcr=146) 6.4 gm/dL 6.0-8.3 ALBUMIN (BEAKER) (test jnpa=8385) 3.9 g/dL 3.5-5.0 BILIRUBIN TOTAL (BEAKER) (test nfcj=256) 0.5 mg/dL 0.2-1.2 BILIRUBIN DIRECT (BEAKER) (test jyzy=957) 0.2 mg/dL 0.1-0.5 ALKALINE PHOSPHATASE (BEAKER) (test wtbr=436) 78 U/L 40-150 AST (SGOT) (BEAKER) (test myfk=317) 14 U/L 5-34 ALT (SGPT) (BEAKER) (test bvuh=345) 12 U/L 6-55 LACTIC ACID, VENOUS, WHOLE [id number] 12:08:00 Test Item Value Reference Range Comments LACTATE BLOOD VENOUS (2) 0.8 mmol/L 0.5-2.2 Specimen moderately hemolyzed (BEAKER) (test edfs=4976) URINALYSIS W/ REFLEX URINE [id number] 11:10:00 Test Item Value Reference Range Comments COLOR (BEAKER) (test wqkt=370) Light Yellow CLARITY (BEAKER) (test sptq=519) Clear SPECIFIC GRAVITY UA (BEAKER) (test wcsl=670) 1.020 1.001-1.035 PH UA (BEAKER) (test zwon=887) 6.5 5.0-8.0 PROTEIN UA (BEAKER) (test rfiz=363) Negative Negative GLUCOSE UA (BEAKER) (test tsst=208) Negative Negative KETONES UA (BEAKER) (test fqco=141) Negative Negative BILIRUBIN UA (BEAKER) (test ghcc=734) Negative Negative BLOOD UA (BEAKER) (test jgdx=675) Negative Negative NITRITE UA (BEAKER) (test gefw=230) Negative Negative LEUKOCYTE ESTERASE UA (BEAKER) (test cnqk=349) Negative Negative UROBILINOGEN UA (BEAKER) (test npku=567) 0.2 mg/dL 0.2-1.0 RBC UA (BEAKER) (test uyll=971) < /HPF WBC UA (BEAKER) (test jgus=276) 0 /HPF SQUAMOUS EPITHELIAL (BEAKER) (test iagk=963) < /HPF SOURCE(BEAKER) (test tbxk=5547) CT ABDOMEN/PELVIS [id number] 14:26:[address] [id number] IMAGING REPORTPatient Name : Manuel DEL TORO of Service: [id number]: 45 Sex: F Order #: [id number] [facility] 1970 [facility] Number: [id number] Record Number: [id number] Hospital Number: [id number] Physician: KISHAN MUNOZ - Ordering Physician: HERNANDEZ [...] by TIFFANIE Syed 2016-07-26 14:23:48CT ABDOMEN/ PELVIS [id number] 02:49:[place] [id number] IMAGING REPORTPatient Name: Manuel DEL TORO of Service: [id number]: 45 Sex: F Order #: [id number] [facility] 1970 X-Ray Number: [id number] Record Number: [id number] Hospital Number: [id number] Physician: BLAKE ALLEN - Ordering Physician: AURORA [...] authenticated by MARTINEZ VALDEZ 2016-07-17 02:47:19ABDOMEN 2 [id number] 12:14:[address] [id number] IMAGING REPORTPatient Name: Manuel DEL TORO of Service: [id number]: 45 Sex: F Order #: [id number] [facility] 1970 X[facility] Number: [id number] Record Number: [id number] Hospital Number: [id number] Physician: ANMOL TEJEDAOrdering Physician: Elvis GARCIA 2 views 2016 at11:40 [...] Signed By: Raymond James M.D., 07/15/2016 12:12 PMLannemarie authenticated by RAFA GALVAN 2016-07-15 12:12:28
[2018-11-21] MEDS ORDERED: HYDROCORTISONE SUC 100 MG INJ ONE (14:19)
--- NOTE | 2018-11-21 14:41 | RAD REPORT ---
EXAM DESCRIPTION: RAD - Abdomen 1 View (KUB) - 11/21/2018 1:59 pm CLINICAL HISTORY: Abdominal pain COMPARISON: None. FINDINGS: Large amount of stool is present filling and distending the colon from hepatic flexure thr ough the descending colon. Sigmoid stool volume is moderate. No abnormal rectal or cecum stool volume . Air-filled small bowel loops are present. No small bowel obstruction. There is no free air or pneumat osis. Cholecystectomy clips are present. Battery pack overlies the right iliac crest. Neurostimulator or pa in infusion pump tubing is seen in the spine. Phleboliths are seen in the lower right pelvis. Ureteral calculus is unlikely without supporting clin ical symptoms. IMPRESSION: Large stool volume in the colon. Mild prominence of small bowel pattern with no bowel obstruction, free air or pneumatosis.
[2018-11-21 14:53] LABS: Absolute Lymphocytes (CBC) 2.7 K/uL (0.7-4.9); Basophils % 0.3 % (0-1.3); Hematocrit 34.7 % (36.0-45.0); Lymphocytes % 33.1 % (15.3-44.8); MPV 6.6 fL (7.6-11.3)
[2018-11-21 15:04] LABS: ALT/SGPT 22 U/L (12-78); AST/SGOT 7 U/L (15-37); Alkaline Phosphatase 74 U/L (45-117); BUN Blood Urea Nitrogen 6 mg/dL (7-18); Bicarbonate 32 mmol/L (21-32); Bilirubin Direct < 0.1 mg/dL (0-0.2); Bilirubin Total 0.2 mg/dL (0.2-1.0); Glucose Level 98 mg/dL (74-106); Lipase 188 U/L (73-393); Potassium 3.4 mmol/L (3.5-5.1); Sodium Level 144 mmol/L (136-145)
--- NOTE | 2018-11-21 15:11 | EDPHYS ---
Physician Documentation [facility] [place] Name: Angela Rodriguez Age: 48 yrs Sex: Female : 1970 Arrival Date: 11/21/2018 Time: 12:17 Bed 25 Private MD: Jorge L Chamberlain E ED Physician Richy Mathew HPI: 11/21 14:12 This 48 yrs old Female presents to ER via Ambulatory with complaints of jr8 Abdominal Pain. 14:12 The patient presents with abdominal pain in the lower abdomen, abdominal distention. jr8 Onset: The symptoms/episode began/occurred acutely, gradually. Associated signs and symptoms: Pertinent positives: diarrhea, nausea, back pain, Pertinent negatives: nausea and vomiting, blood in stools, dysuria, fever, hematuria, vaginal discharge, vomiting blood. The symptoms are described as crampy. Modifying factors: The symptoms are alleviated by nothing. Severity of pain: At its worst the pain was moderate in the emergency department the pain is unchanged. The patient has experienced a previous episode, approximately 3 weeks ago, when diagnosed with adrenal insufficiency at [facility]. The patient has not recently seen a physician. History of Crohn's disease, recent diagnosis of adrenal insufficiency and is currently taking cortisone 20 mg BID. Reports improvement, but now is experiencing similar symptoms - nausea, diarrhea, abdominal pain, right lower back pain, and fatigue.. 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 - Social history:: Smoking status: Patient/guardian denies using tobacco. - Ebola Screening: : Patient negative for fever greater than or equal to 101.5 degrees Fahrenheit, and additional compatible Ebola Virus Disease symptoms Patient denies exposure to infectious person Patient denies travel to an Ebola-affected area in the 21 days before illness onset No symptoms or risks identified at this time. ROS: 14:12 Eyes: Negative for injury, pain, redness, and discharge, ENT: Negative for injury, jr8 pain, and discharge, Neck: Negative for injury, pain, and swelling, Cardiovascular: Negative for chest pain, palpitations, and edema, Respiratory: Negative for shortness of breath, cough, wheezing, and pleuritic chest pain, MS/Extremity: Negative for injury and deformity, Skin: Negative for injury, rash, and discoloration, Neuro: Negative for headache, weakness, numbness, tingling, and seizure. 14:12 Constitutional: Positive for body aches, fatigue, Negative for fever. 14:12 Abdomen/GI: Positive for abdominal pain, nausea, diarrhea, Negative for vomiting, constipation, hematemesis, black/tarry stool. 14:12 Back: Positive for flank pain, on the right. 14:12 : Negative for urinary symptoms. Exam: 14:12 Constitutional: This is a well developed, well nourished patient who is awake, alert, jr8 and in no acute distress. Head/Face: Normocephalic, atraumatic. Cardiovascular: Regular rate and rhythm with a normal S1 and S2. No gallops, murmurs, or rubs. Normal PMI, no JVD. No pulse deficits. Respiratory: Lungs have equal breath sounds bilaterally, clear to auscultation and percussion. No rales, rhonchi or wheezes noted. No increased work of breathing, no retractions or nasal flaring. Back: No spinal tenderness. No costovertebral tenderness. Full range of motion. Skin: Warm, dry with normal turgor. Normal color with no rashes, no lesions, and no evidence of cellulitis. MS/ Extremity: Pulses equal, no cyanosis. Neurovascular intact. Full, normal range of motion. Neuro: Awake and alert, GCS 15, oriented to person, place, time, and situation. Cranial nerves II-XII grossly intact. Motor strength 5/5 in all extremities. Sensory grossly intact. Cerebellar exam normal. Normal gait. 14:12 Abdomen/GI: Inspection: distension, that is mild, Bowel sounds: normal, active, all quadrants, Palpation: soft, in all quadrants, mild abdominal tenderness, in the right lower quadrant and left lower quadrant, no appreciated organomegaly, pain pump palpated to RLQ. Vital Signs: 12:20 BP 105 / 71; Pulse 88; Resp 19; Temp 98.1; Pulse Ox 97% on R/A; Weight 72.57 kg; Height aj 5 ft. 2 in. (157.48 cm); 13:17 BP 135 / 85 RA (auto/reg); Pulse 59; Temp 98.3; Pulse Ox 100% ; Pain 10/10; jp3 14:16 BP 136 / 99; Pulse 64; Resp 18; Pulse Ox 98% on R/A; Pain 5/10; mg2 12:20 Body Mass Index 29.26 (72.57 kg, 157.48 cm) aj MDM: 13:13 Patient medically screened. jr8 15:10 Data reviewed: vital signs, nurses notes, lab test result(s), radiologic studies, plain jr8 films, and as a result, I will discharge patient. Data interpreted: Pulse oximetry: on room air is 98 %. Interpretation: normal. 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 11/21 13:35 Order name: Basic Metabolic Panel; Complete Time: 15:11 11/21 13:35 Order name: CBC with Diff; Complete Time: 15:11/21 13:35 Order name: Creatinine for Radiology; Complete Time: 15:11/21 13:35 Order name: Hepatic Function; Complete Time: 15:11 11/21 13:35 Order name: Lipase; Complete Time: 15:11 11/21 13:40 Order name: XRAY KUB; Complete Time: 14:48 11/21 13:35 Order name: IV Saline Lock; Complete Time: 14:16 11/21 13:35 Order name: Labs collected and sent; Complete Time: 14:37 jr Administered Medications: 14:16 Drug: HydroCORTISONE 100 mg Route: IVP; Site: left wrist; mg2 15:56 Follow up: Response: No adverse reaction mg2 Disposition: 17:21 Co-signature as Attending Physician, Richy Mathew MD. rn Disposition: 11/21/18 15:11 Discharged to Home. Impression: Constipation, Other chronic pain - abdominal pain. - Condition is Stable. - Discharge Instructions: Chronic Pain, Constipation, Adult. - Prescriptions for Miralax 17 gram/dose Oral - take 1 packet by ORAL route once daily dilute powder in 8 ounces of water or juice; 1 box. - Medication Reconciliation Form, Thank You Letter, Antibiotic Education, Prescription Opioid Use form. - Follow up: Private Physician; When: 2 - 3 days; Reason: Recheck today's complaints, Continuance of care, Re-evaluation by your physician. - Problem is new. - Symptoms have improved. Signatures: Dispatcher [employer] EDCally Gaming, RN Richy Carpenter MD MD rn Roszak, Josh, PA PA jr8 Luís Rahman RN RN mg2 Corrections: (The following items were deleted from the chart) 15:57 15:11 11/21/2018 15:11 Discharged to Home. Impression: Constipation; Other chronic pain mg2 - abdominal pain. Condition is Stable. Forms are Medication Reconciliation Form, Thank You Letter, Antibiotic Education, Prescription Opioid Use. Follow up: Private Physician; When: 2 - 3 days; Reason: Recheck today's complaints, Continuance of care, Re-evaluation by your physician. Problem is new. Symptoms have improved. jr8
--- NOTE | 2018-11-21 15:11 | ER ---
Nurse's Notes [facility] Name: Angela Rodriguez Age: 48 yrs Sex: Female : 1970 Arrival Date: 11/21/2018 Time: 12:17 Bed 25 Private MD: Jorge L Chamberlain E Diagnosis: Constipation;Other chronic pain-abdominal pain Presentation: 11/21 12:18 Presenting complaint: Patient states: Abdominal bloating, diarrhea, back pain, fatigue aj that started today. HX of crohn's. Transition of care: patient was not received from another setting of care. Onset of symptoms was November 21, 2018. Risk Assessment: Do you want to hurt yourself or someone else? Patient reports no desire to harm self or others. Initial Sepsis Screen: Does the patient meet any 2 criteria? No. Patient's initial sepsis screen is negative. Does the patient have a suspected source of infection? No. Patient's initial sepsis screen is negative. Care prior to arrival: None. 12:18 Method Of Arrival: Ambulatory aj 12:18 Acuity: LIZZY 3 aj Triage Assessment: 12:20 General: Appears in no apparent distress. comfortable, Behavior is calm, cooperative, aj appropriate for age. Pain: Complains of pain in back and abdomen. Neuro: Level of Consciousness is awake, alert, obeys commands, Oriented to person, place, time, situation, Appropriate for age. Respiratory: Airway is patent Respiratory effort is even, unlabored, Respiratory pattern is regular, symmetrical. GI: Abdomen is non-distended, obese. Derm: Skin is intact, is healthy with good turgor, Skin is pink, warm \T\ dry. normal. 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 - Social history:: Smoking status: Patient/guardian denies using tobacco. - Ebola Screening: : Patient negative for fever greater than or equal to 101.5 degrees Fahrenheit, and additional compatible Ebola Virus Disease symptoms Patient denies exposure to infectious person Patient denies travel to an Ebola-affected area in the 21 days before illness onset No symptoms or risks identified at this time. Screenin:59 Abuse screen: Denies threats or abuse. Denies injuries from another. Nutritional mg2 screening: No deficits noted. Tuberculosis screening: No symptoms or risk factors identified. Fall Risk None identified. Assessment: 13:58 General: Appears in no apparent distress. comfortable, Behavior is calm, cooperative. mg2 Pain: Complains of pain in abdomen and back Pain does not radiate. Pain currently is 5 out of 10 on a pain scale. Quality of pain is described as aching, Pain began gradually, Is intermittent. Neuro: Level of Consciousness is awake, alert, obeys commands, Oriented to person, place, time, situation. Cardiovascular: Capillary refill < 3 seconds Patient's skin is warm and dry. Respiratory: Airway is patent Respiratory effort is even, unlabored, Respiratory pattern is regular, symmetrical. GI: Bowel sounds present X 4 quads. Abd is rigid. : No signs and/or symptoms were reported regarding the genitourinary system. EENT: No signs and/or symptoms were reported regarding the EENT system. Derm: Skin is intact, is healthy with good turgor, Skin is pink, warm \T\ dry. normal. Musculoskeletal: Circulation, motion, and sensation intact. Capillary refill < 3 seconds. 15:56 Reassessment: Patient states feeling better. mg2 Vital Signs: 12:20 BP 105 / 71; Pulse 88; Resp 19; Temp 98.1; Pulse Ox 97% on R/A; Weight 72.57 kg; Height aj 5 ft. 2 in. (157.48 cm); 13:17 BP 135 / 85 RA (auto/reg); Pulse 59; Temp 98.3; Pulse Ox 100% ; Pain 10/10; jp3 14:16 BP 136 / 99; Pulse 64; Resp 18; Pulse Ox 98% on R/A; Pain 5/10; mg2 12:20 Body Mass Index 29.26 (72.57 kg, 157.48 cm) ED Course: 12:17 Patient arrived in ED. mr 12:18 Jorge L Chamberlain MD is Private Physician. mr 12:19 Triage completed. aj 12:20 Arm band placed on left wrist. Patient placed in waiting room, Patient notified of wait aj time. 13:02 Lusí Rahman, RN is Primary Nurse. mg2 13:05 Stefano Trotter PA is PHCP. jr8 13:05 Richy Mathew MD is Attending Physician. jr8 13:15 Urine collected: clean catch specimen, clear, sandrine colored. jp3 13:18 Bed in low position. Call light in reach. Side rails up X 1. Side rails up X2. Warm jp3 blanket given. Verbal reassurance given. Pulse ox on. NIBP on. 13:18 Patient maintains SpO2 saturation greater than 95% on room air. jp3 13:56 XRAY KUB In Process Unspecified. EDMS 14:19 No provider procedures requiring assistance completed. Inserted saline lock: 24 gauge mg2 in left wrist, using aseptic technique. 15:56 IV discontinued, intact, bleeding controlled, No redness/swelling at site. Pressure mg2 dressing applied. Administered Medications: 14:16 Drug: HydroCORTISONE 100 mg Route: IVP; Site: left wrist; mg2 15:56 Follow up: Response: No adverse reaction mg2 Outcome: 15:11 Discharge ordered by . jr8 15:56 Discharged to home ambulatory, with family. mg2 15:56 Condition: stable 15:56 Discharge instructions given to patient, Instructed on discharge instructions, follow up and referral plans. Demonstrated understanding of instructions, follow-up care. 15:57 Patient left the ED. mg2 Signatures: Dispatcher [employer] EDMS Cally Stanton RN RN aj RiveraRoopa mr Stefano Trotter PA PA jr8 Luís Rahman, James Fowler RN jp3
[2018-11-21 16:13] VITALS: TEMP 98.3
[2018-11-21 16:15] VITALS: BP 136/99; O2SAT 98
== END 2018-11-21 15:57 | disposition home or self-care (01) ==
LOC: ER 12:13
DX: K59.00 Constipation, unspecified (principal); G89.29 Other chronic pain; R10.30 Lower abdominal pain, unspecified; F31.9 Bipolar disorder, unspecified; E03.9 Hypothyroidism, unspecified; Z88.1 Allergy status to other antibiotic agents
CPT/HCPCS: 85025; 80048; 36415; 80076; 83690; 74018; 96374; 99284; J1720

== ENCOUNTER 2018-11-25 12:06 | Emergency (ER) | payer OTHER ==
--- OUTSIDE RECORDS SUMMARY | 2018-11-25 12:08 | XMS REPORT | Clinical Summary ---
:1970 Author Organization [facility] Address [address] [place] [id number] Care Team Providers Name Role Phone Eryn [...] INFLUENZA VACCINE 11/29/2018 Implants Implanted Type Area Can Vacuum Tester Device Identifier Shelf Expiration Model / Date Serial / Lot Pain Pump-07/18/2009 Implanted: 07/18/2009 (Quantity not on file) Results Not on fileafter 11/24/2017 Insurance Payer Benefit Plan / Subscriber ID Effective Dates Phone Address Type Group MEDICARE MEDICARE PART A xxxxxxxxxx 2005-Present [place], [place] Medicare AND B MEDICAID MEDICAID xxxxxxxxx 2017-Present Medicaid
--- OUTSIDE RECORDS SUMMARY | 2018-11-25 12:10 | XMS REPORT | Clinical Summary ---
:1970 Author Organization [facility] Address [address] [place] [address] Care Team Providers Name Role Phone Mychal [...] 12/17/19 Active acidoph-L.bulgar mouth 2 (two) 9 19 (FLORANEX) 1 times daily for 30 million cell Tab days. per tablet loperamide Take 1 capsule (2 30 capsule 0 11/27/19 Active (IMODIUM) 2 mg mg total) by mouth 9 capsule 4 (four) times daily as needed for Diarrhea for up to 10 days. pantoprazole Take 1 tablet (40 30 tablet [...] 20 MG times 2 weeks and 9 tablet then 20mg daily times 2 weeks. [...] 08/18/19 Discontinued (DELTASONE) 10 MG days the 9 tablet 74-64-66-20-15-10- 5mg each for 3 days and then stop. fluconazole Take 1 tablet (100 7 tablet 0 08/01/19 (DIFLUCAN) 100 MG mg total) by mouth 9 19 tablet daily for 7 days. HYDROcodone-acetam Take 1 tablet by 30 tablet 0 08/03/19 inophen (NORCO mouth every 6 9 5-325) 5-325 mg (six) hours for 10 [...] every 8 (eight) hours for 7 days. acetaminophen-code Take 1 tablet by 20 tablet 0 11/24/19 ine (TYLENOL #4) mouth every 6 9 19 300-60 mg per (six) hours as tablet needed for Pain for up to 7 days. Max Daily Amount: 4 tablets Active Problems Problem Noted Date Abdominal pain 11/06/2018 Bilateral lower abdominal pain 07/21/2018 Crohn's disease 07/06/2018 SBO (small bowel obstruction) 07/06/2018 Encounters Date Type Specialty Care Team Description 11/12/2018 Surgery Gastroenterology Raegan Jefferson ENDOSCOPY,JED Hansen MD 11/10/2018 Anesthesia Event Gastroenterology James Teixeira MD 11/10/2018 Surgery Gastroenterology Bartolo Quinn COLONOSCOPY,BIOPSY Ghulam 11/07/2018 Travel 11/06/2018 [facility] Cardiology Brann, Generalized abdominal pain; - Encounter Jacques Crohn's disease of small intestine with fistula ( HCC); 11/16/2018 MD Andrzej Vaginal candidiasis; Keanu Norwood K, Bilateral lower abdominal pain; Crohn's disease of small intestine with intestinal obstruction (HCC); Evelyn Alex, Diarrhea, unspecified type; Herpes zoster without complication; Adrenal insufficiency (Chappell's disease) (HCC) 09/18/2018 [facility] Computed Tomography Jani Sanchez MD Incisional hernia, Encounter 1, [facility] Jase without obstruction Ct Room or gangrene 09/18/2018 Outside Orders Central Scheduling Jani Sanchez MD Incisional hernia, without obstruction or gangrene (Primary Dx) 09/04/2018 Hospital Radiology Cristela Collins Crohn's disease of both small and large intestine with other complication (HCC); 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, [employer]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 Intestinal malabsorption, unspecified type; Heavy smoker; History of steroid therapy; Encounter for imaging to assess osteopenia 09/04/2018 Outside Orders Central Scheduling Cristela Collins Crohn's disease of both small and large intestine with other complication (HCC) ( Primary Dx); L, [employer]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 Intestinal malabsorption, unspecified type; Heavy smoker; History of steroid therapy; Encounter for imaging to assess osteopenia 08/22/2018 Orders Only General Internal Medicine 08/21/2018 Travel 08/20/2018 Anesthesia Event Vj Campbell MD 08/20/2018 Surgery Jani Sanchez MD LAPAROSCOPY,COLECTOMY RIGHT 08/20/2018 [facility] Internal Jani Sanchez MD Crohn's disease of - Encounter Medicine small intestine with 08/23/2018 fistula (HCC) 08/17/2018 [facility] Pre-Admission Testing Resource, Oqhi Encounter Preadmit Phone 08/16/2018 [facility] Computed Tomography Jani Sanchez MD Crohn's disease with Encounter 1, [facility] Jase intestinal Ct Room obstruction, unspecified gastrointestinal tract location (HCC) 08/07/2018 [facility] Magnetic Resonance Jani Sanchez MD Crohn's disease with Encounter Imaging 1.5, [facility] intestinal Jase Mr obstruction, unspecified gastrointestinal tract location (HCC) 08/07/2018 [facility] Magnetic Resonance System, Provider Crohn's disease with Encounter Imaging Not In intestinal 1.5, [facility] obstruction, Jase Mr unspecified gastrointestinal tract location (HCC) 08/06/2018 Outside Orders Central Scheduling Jani Sanchez MD Crohn's disease with intestinal obstruction, unspecified gastrointestinal tract location (HCC) (Primary Dx) 07/22/2018 Travel 07/20/2018 [facility] Internal Ferreira Santiago Bilateral lower abdominal pain (Primary Dx); - [...] Huynh BIOPSY K., MD 07/10/2018 Travel 07/06/2018 [facility] Internal Shamsee, SBO (small bowel obstruction ) (HCC); - Encounter Medicine Esa-Juan Crohn's disease of both small and large intestine with other complication (HCC); 07/11/2018 MD Donny Smoker; Mayte, Endometriosis; MD Colby Crohn's disease of small intestine with intestinal obstruction (HCC); Daxa Caballero Other chronic pain MD Alex Bruno Umar, MD after 11/24/2017 Family History Medical History Relation Name Comments [...] Inhaled Oxygen Concentration 21% 07/06/2018 10:00 PM [employer]PERVIS[employer]DER[employer] Weight 71.1 kg (156 lb 10.9 oz) [...] 314 ms QTC Calculation(Bazett) 449 ms P [place] 37 degrees R [place] 67 degrees T [place] 30 degrees Sinus tachycardia Otherwise normal ECG [...] 07/07/2018 3:30 Results for AUTO DIFFERENTIAL AM [employer] this procedure are in the results section. BASIC METABOLIC Routine 07/07/2018 3:30 Results for PANEL (7) AM [employer] this procedure are in the results section. CBC W/PLT COUNT & Routine 07/07/2018 3:30 Results for AUTO DIFFERENTIAL AM [employer] this procedure are in the results section. STOOL PATH CHARGE Routine 07/06/2018 6:29 Results for PM [employer] this procedure are in the results section. SHIGA TOXIN SCREEN Routine 07/06/2018 6:29 Results for PM [employer] this procedure are in the results section. STOOL CULTURE + Routine 07/06/2018 6:29 Results for SHIGA TOXIN PM [employer] this procedure are in the results section. C. DIFFICILE GDH Routine 07/06/2018 6:28 Results for TOXIN PM [employer] this procedure are in the results section. XR CHEST 1 VIEW Routine 07/06/2018 1:20 Results for PORTABLE/BEDSIDE PM [employer] this procedure are in the results section. BLOOD CULTURE STAT 07/06/2018 11:14 Results for AM [employer] this procedure are in the results section. LACTIC ACID, VENOUS Routine 07/06/2018 11:13 Results for AM [employer] this procedure are in the results section. BLOOD CULTURE STAT 07/06/2018 10:50 Results for AM [employer] this procedure are in the results section. CBC W/PLT COUNT & Routine 07/06/2018 10:49 Results for AUTO DIFFERENTIAL AM [employer] this procedure are in the results section. PHOSPHORUS Routine 07/06/2018 10:49 Results for AM [employer] this procedure are in the results section. MAGNESIUM Routine 07/06/2018 10:49 Results for AM [employer] this procedure are in the results section. HEPATIC FUNCTION Routine 07/06/2018 10:49 Results for PANEL AM [employer] this procedure are in the results section. BASIC METABOLIC Routine 07/06/2018 10:49 Results for PANEL (7) AM [employer] this procedure are in the results section. CBC W/PLT COUNT & Routine 07/06/2018 10:49 Results for AUTO DIFFERENTIAL AM [employer] this procedure are in the results section. RAPID DRUG SCREEN, STAT 07/06/2018 10:14 Results for URINE AM [employer] this procedure are in the results section. URINALYSIS W/ REFLEX Routine 07/06/2018 10:14 Results for URINE CULTURE AM [employer] this procedure are in the results section. after 11/24/2017 Results EKG-SCANNED (11/19/2018 2:52 PM CDT) Narrative Performed At CBC with platelet count + automated diff (11/16/2018 5:27 AM CDT)Only the most recent of13 resultswithin the time period is included. WBC 7.3 3.5 - 10.5 K/L [facility] RBC 4.15 3.93 - 5.22 M/L [facility] Hemoglobin 12.4 11.2 - 15.7 GM/DL [facility] Hematocrit 38.4 34.1 - 44.9 % [facility] MCV 92.5 79.4 - 94.8 fL [facility] MCH 29.9 25.6 - 32.2 pg [facility] MCHC 32.3 32.2 - 35.5 GM/DL [facility] RDW 14.4 11.7 - 14.4 % [facility] Platelets 275 150 - 450 K/CU MM [facility] MPV 8.9 (L) 9.4 - 12.3 fL [facility] nRBC 0 0 - 0 /100 WBC [facility] % Neutros 49 % [facility] % Lymphs 41 % [facility] % Monos 7 % [facility] % Eos 3 % [facility] % Baso 0 % [facility] # Neutros 3.54 1.56 - 6.13 K/L [facility] # Lymphs 2.99 1.18 - 3.74 K/L [facility] # Monos 0.52 (H) 0.24 - 0.36 K/L [facility] # Eos 0.20 0.04 - 0.36 K/L [facility] # Baso 0.03 0.01 - 0.08 K/L [facility] Immature Granulocytes-Relative 0 0 - 1 % [facility] Specimen Blood Performing Organization Address City/[facility] Phone Number [address] [address] CENTER Magnesium (11/16/2018 5:27 AM CDT)Only the most recent of10 resultswithin the time period is included. Magnesium 1.8Comment: Specimen 1.6 - 2.6 mg/dL [facility] Spec[facility] Blood Performing Organization Address City/[facility] Phone Number [address] [address] CENTER Basic Metabolic Panel (11/16/2018 5:27 AM CDT)Only the most recent of18 resultswithin the time period is included. Sodium 137 136 - 145 meq/L [facility] Potassium 4.5Comment: Specimen 3.5 - 5.1 meq/L [facility] Chloride 109 (H) 98 - 107 meq/L [facility] CO2 19 (L) 22 - 29 meq/L [facility] BUN 9 7 - 21 mg/dL [facility] Creatinine 0.71Comment: Specimen 0.57 - 1.25 mg/dL [facility] moderately hemolyzed [facility] [place] Glucose 85 70 - 105 mg/dL [facility] Calcium 9.0 8.4 - 10.2 mg/dL [facility] EGFR 88Comment: ESTIMATED GFR IS mL/min/1.73 sq m [facility] NOT ACCURATE CREATININE [facility] CENTER CLEARANCE IN PREDICTING GLOMERULAR FILTRATION RATE. ESTIMATED GFR IS NOT APPLICABLE FOR DIALYSIS PATIENTS. Specimen Blood Performing Organization Address City/State/Zipcode Phone Number [facility] [address] [place] [address] [phone] CENTER CORTISOL,60 MIN (11/15/2018 1:10 AM CDT) Cortisol, Baseline <1.0 mcg/dL [facility] Cortisol 30 minute 6.0 mcg/dL [facility] Cortisol, 60 Minute 7.0 ug/dL [facility] Specimen Blood Narrative Performed At ACTH STIMULATION TEST INTERPRETATION [facility] GUIDELINES (Synonyms: Cortrosyn Test, Cosyntropin or Corticotropin [...] administration. Performing Organization Address City/State/Zipcode Phone Number [facility] [address] [place] [phone] CENTER CORTISOL,30 MIN (11/15/2018 12:45 AM CDT) Cortisol, Baseline <1.0 mcg/dL [facility] Cortisol, 30 Minute 6.0 ug/dL [facility] Specimen Blood Narrative Performed At ACTH STIMULATION TEST INTERPRETATION [facility] GUIDELINES (Synonyms: Cortrosyn Test, Cosyntropin or Corticotropin [...] administration. Performing Organization Address City/State/Zipcode Phone Number [facility] [address] [place] [address] [phone] CENTER CORTISOL,BASELINE (11/14/2018 6:04 PM CDT) Cortisol, Baseline <1.0 ug/dL [facility] Specimen Blood Narrative Performed At ACTH STIMULATION TEST INTERPRETATION [facility] GUIDELINES (Synonyms: Cortrosyn Test, Cosyntropin or Corticotropin [...] a study by Padilla et al (MIGUEL 2000,283(8):6383-45), the ACTH Stimulation Test provides important prognostic [...] administration. Performing Organization Address City/State/Zipcode Phone Number [facility] MEDICAL [address] [place] [address] CENTER ACTH (11/14/2018 6:04 PM CDT)Only the most recent of2 resultswithin the time period is included. ACTH 10 6 - 50 pg/mL [facility] Comment: Reference range applies only to the specimens collected between 7am-10am. Specimen Blood Narrative Performed At Performing Lab [facility] [address] [address] Cassandra Avila MD, PhD, RICK Performing Organization Address City/[facility] Phone Number [facility] [place] [address] [place] [address] REPORT OF PROCEDURE - ENDOSCOPY URL (11/11/2018 2:54 PM CDT) Narrative Performed At Tissue Exam (11/10/2018 3:43 PM CDT)Only the most recent of3 resultswithin the time period is included. Case Report Surgical Pathology Report Case: [id number] [facility] Authorizing Provider:Bartolo Quinnected: 11/10/2018 1543 MEDICAL CENTER Ordering Location: [address] Received: 11/12/2018 0813 Service Pathologist: Linda Mullen MD Specimens: A) - Biopsy, Terminal Ileum, Neoterminal Ileum biopsy B) - Ileum, Ileocolonic Anastomosis biopsy C) - Large Intestine, Colon - Right/Ascending, Right colon biopsy D) - Large Intestine, Colon - Transverse, Transverse colon biopsy E) - Large Intestine, Colon - Left/Descending, Left colon biopsy DIAGNOSIS A. NEOTERMINAL ILEUM, BIOPSY: [facility] - SUPERFICIAL FRAGMENTS OF ILEAL MUCOSA WITH [...] CRYPT DISTORTION Signing Pathologist Direct Phone Line: [phone] COMMENT Patient's history of [facility] Crohn's disease is noted. MEDICAL CENTER The current sampling shows no significant active or chronic colitis. This may represent complete histologic resolution following treatment. Clinical and endoscopic correlation is recommended. CPT Code(s) 74082Z1 [facility] CLINICAL HISTORY Pre and postop diagnosis: [facility] diarrhea [facility] SPECIMEN SOURCE A. Neoterminal ileum [facility] biopsy; [facility]; C. Right colon biopsy; D. Transverse colon biopsy; E. Left colon biopsy GROSS DESCRIPTION A. Received in formalin labeled with the patient's name, accession number and "biopsy, terminal ileum" are four irregular rodriguez soft tissue fragments ranging 0.2-0.4 cm which are submitted in toto in A1. [facility] B. Received in formalin labeled with the [...] toto in E1. CG/pl MICROSCOPIC DESCRIPTION Performed. [facility] Specimen Tissue - Biopsy, Terminal Ileum Tissue - Ileal structure (body structure) Tissue - Ascending colon structure (body structure) Tissue - Transverse colon structure (body structure) Tissue - Descending colon structure (body structure) Performing Organization Address [facility] Phone Number [address] [address] [phone] [place] Cortisol (11/09/2018 4:56 AM CDT) Cortisol, Total <1.0 (L) 3.7 - 19.4 ug/dL [facility] Specimen Blood Performing Organization Address City/[facility]/Zipcode Phone Number [address] [address] [phone] [place] GI Pathogen Profile by PCR -ID Only (11/08/2018 2:49 PM CDT) CAMPYLOBACTER (PCR) Not detected Not detected [facility] PLESIOMONAS SHIGELLOIDES (PCR) Not detected Not detected [facility] SALMONELLA (PCR) Not detected Not detected [facility] YERSINIA ENTEROCOLITICA (PCR) Not detected Not detected [facility] VIBRIO CHOLERAE (PCR) Not detected Not detected [facility] ENTEROAGGREGATIVE E. COLI (EAEC) Not detected Not detected [facility] BY PCR [facility] [place] ENTEROPATHOGENIC E. COLI (EPEC) BY Not detected Not detected [facility] PCR [facility] [place] ENTEROTOXIGENIC E. COLI (ETEC) Not detected Not detected [facility] LT/ST BY PCR [facility] [place] SHIGA-LIKE TOXIN-PRODUCING E. COLI Not detected Not detected [facility] (STEC) STX1/STX2 [facility] E. COLI O157 (PCR) Not detected [facility] SHIGELLA/ENTEROINVASIVE E. COLI Not detected Not detected [facility] (EIEC) BY PCR [facility] CRYPTOSPORIDIUM (PCR) Not detected Not detected [facility] CYCLOSPORA CAYETANENSIS (PCR) Not detected Not detected [facility] ENTAMOEBA HISTOLYTICA (PCR) Not detected Not detected [facility] GIARDIA LAMBLIA (PCR) Not detected Not detected [facility] ADENOVIRUS F 40/41 (PCR) Not detected Not detected [facility] ASTROVIRUS (PCR) Not detected Not detected [facility] NOROVIRUS GI/GII (PCR) Not detected Not detected [facility] ROTAVIRUS A (PCR) Not detected Not detected [facility] SAPOVIRUS (I, II, IV, V) BY PCR Not detected Not detected [facility] VIBRIO (PARAHAEMOLYTICUS, Not detected Not detected [facility] VULNIFICUS) [facility] Specimen Stool Narrative Performed At Other viruses, parasites and bacteria not [facility] targeted by this PCR panel cannot be excluded; therefore clinical correlation and follow up of serology, culture results, and other molecular studies is required. The results are not intended to be used as the sole means for clinical diagnosis or patient management decisions. This sample was tested at the [facility] Molecular Diagnostics Laboratory using the [employer] Gastrointestinal Panel. It is FDA cleared and has been verified and approved by the [facility] Molecular Diagnostics Laboratory for clinical use. This laboratory is CLIA-certified and [employer] [place] [employer] (CAP)-accredited to perform high complexity testing. Performing Organization Address City/State/Zipcode Phone Number [facility] [address] [place] [address] [phone] CENTER Ova and Parasite Examination (11/08/2018 2:49 PM CDT) O&P Direct Smear No ova or parasites No ova or parasites [facility] seen seen [facility] O&P Concentrate Smear No ova or parasites No ova or parasites [facility] seen seen [facility] O&P Trichrome Smear No ova or parasites No ova or parasites [facility] seen seen [facility] Specimen Stool Narrative Performed At Performing Organization Address City/State/Zipcode Phone Number [address] [phone] [place] TSH/Free T4 If Indicated (11/08/2018 2:59 AM CDT) TSH 2.84 0.35 - 4.94 uIU/mL [facility] Specimen Blood Performing Organization Address [facility]/Zipcode Phone Number [address] [address] [place] XR abdomen / KUB 1 view (11/07/2018 [...] MD Report Verified Date/Time:11/07/2018 14:37:57 Reading Location: [address] Consult Reading Room Procedure Note Interface, [...] Report Verified Date/Time: 11/07/2018 14:37:57 Reading Location: [facility] B1 C013W Consult Reading Room Performing Organization Address City/State/Zipcode Phone Number [facility] abdomen/pelvis with IV contrast (11/07/2018 1:39 PM CDT)Only the most recent of3 resultswithin the time period is included. Specimen Narrative Performed At FINAL REPORT [facility] TECHNIQUE: CT of the abdomen and pelvis [...] MD Report Verified Date/Time:11/07/2018 14:25:25 Reading Location: [facility] C013Y CT Body Reading Room Procedure Note [...] Report Verified Date/Time: 11/07/2018 14:25:25 Reading Location: [facility] B1 C013Y CT Body Reading Room Performing Organization Address City/State/Zipcode Phone Number [facility]IS Manual Differential (11/07/2018 5:54 AM CDT) % Neutros 83 % [facility] % Lymphs 13 % [facility] % Monos 4 % [facility] # Neutros 5.89 1.56 - 6.13 K/ul [facility] # Lymphs 0.92 (L) 1.18 - 3.74 K/ul [facility] # Monos 0.28 0.24 - 0.36 K/uL [facility] Total Counted 100 [facility] RBC Morphology Normal [facility] WBC Morphology Normal [facility] Platelet Morphology Normal [facility] Artifact Present [facility] Platelet Conc Adequate [facility] Specimen Blood Narrative Performed At Received comment: [facility] User comments: Slide comments: Performing Organization Address City/[facility]/Zipcode Phone Number [facility] [address] [place] [address] CENTER C-Reactive Protein (11/07/2018 5:54 AM CDT)Only the most recent of2 resultswithin the time period is included. CRP 0.37 0.00 - 0.50 mg/dL [facility] Specimen Blood Performing Organization Address City/State/Zipcode Phone Number [facility] [address] [place] Clostridium difficile [facility] Toxin (11/07/2018 4:41 AM CDT)Only the most recent of3 resultswithin the time period is included. C. Difficle Toxin Negative Negative [facility] C. Difficile GDH Antigen NegativeComment: No Negative [facility] indication of Clostridium [facility] difficile infection and no colonization. Discontinue enteric isolation and therapy. Specimen Stool Narrative Performed At Testing performed by [employer] Rapid Cassette [facility] Assay.For GDH, published sensitivity of the assay is 98.7% compared to cytotoxicity testing.For Toxin AB, published sensitivity is 87.8% and specificity 99.4% compared to cytotoxicity testing. Verification of kit performance was done by the [facility] Microbiology Lab prior to clinical use. Performing Organization Address City/[facility] Phone Number [address] [phone] [place] STOOL PATH CHARGE (11/07/2018 4:41 AM CDT)Only the most recent of3 resultswithin the time period is included. Pathogen exam charged Done [facility] Specimen Stool Performing Organization Address [facility] [facility] Phone Number [address] [address] [place] Shiga Toxin Screen (11/07/2018 4:41 AM CDT)Only the most recent of3 resultswithin the time period is included. Shiga toxin 1 Not detected Not detected [facility] Shiga toxin 2 Not detected Not detected [facility] Specimen Stool Performing Organization Address [facility] Phone Number [address] [phone] [place] Stool culture + Shiga toxin (11/07/2018 4:41 AM CDT)Only the most recent of3 resultswithin the time period is included. Result No Salmonella, Shigella or [facility] Specimen Stool Performing Organization Address City/State/Zipcode Phone Number [facility] [address] [place] [address] CENTER XR DXA Bone Density Study (09/04/2018 1:20 PM CDT) Specimen Narrative Performed At FINAL REPORT [facility] Exam: Bone mineral density study. History:Osteopenia. Comparison:None [...] for bone mineral density as provided by oncology admin is 0.023 g/cm2 for lumbar spine and [...] for bone mineral density as provided by oncology admin is 0.023 g/cm2 for lumbar spine and [...] 13:22:29 Performing Organization Address City/State/Zipcode Phone Number [facility] RHYTHM STRIP - SCAN (08/27/2018 10:30 AM CDT) Narrative Performed At CBC (Hemogram only) (08/23/2018 6:05 AM CDT)Only the most recent of3 resultswithin the time period is included. WBC 5.5 3.5 - 10.5 K/L [facility] RBC 3.31 (L) 3.93 - 5.22 M/L [facility] Hemoglobin 10.4 (L) 11.2 - 15.7 GM/DL [facility] Hematocrit 34.9 34.1 - 44.9 % [facility] MCV 105.4 (H) 79.4 - 94.8 fL [facility] MCH 31.4 25.6 - 32.2 pg [facility] MCHC 29.8 (L) 32.2 - 35.5 GM/DL [facility] RDW 15.4 (H) 11.7 - 14.4 % [facility] Platelets 185 150 - 450 K/CU MM [facility] MPV 8.9 (L) 9.4 - 12.3 fL [facility] nRBC 0 0 - 0 /100 WBC [facility] Specimen Blood Performing Organization Address City/[facility] Phone Number [facility] [address] [place] [address] CENTER Phosphorus (08/23/2018 6:05 AM CDT)Only the most recent of6 resultswithin the time period is included. Phosphorus 2.9 2.3 - 4.7 mg/dL [facility] Specimen Blood Performing Organization Address [facility] Phone Number [address] [address] [phone] [place] ECG 12 lead (08/22/2018 6:33 AM CDT) Specimen Narrative Performed At Ventricular Rate 123 BPM [facility] Atrial Rate 123 BPM P-R Interval 120 ms QRS Duration 84 ms Q-T Interval 314 ms QTC Calculation(Bazett) 449 ms P [place] 37 degrees R [place] 67 degrees T [place] 30 degrees Sinus tachycardia Otherwise normal ECG No previous ECGs available Confirmed by Sg Moore ([id number]) on 08/23/2018 11:22:03 AM Procedure Note Interface, External Ris In - 08/23/2018 11:22 AM CDT Ventricular Rate 123 BPM Atrial Rate 123 BPM P-R Interval 120 ms QRS Duration 84 ms Q-T Interval 314 ms QTC Calculation(Bazett) 449 ms P [place] 37 degrees R [place] 67 degrees T [place] 30 degrees Sinus tachycardia Otherwise normal ECG No previous ECGs available Confirmed by Sg Moore ([id number]) on 08/23/2018 11:22:03 AM Performing Organization Address City/[facility]/Zipcode Phone Number [facility] TRANSFUSION SERVICE REPORT - SCAN (08/21/2018 6:11 PM CDT)Only the most recent of2 resultswithin the time period is included. Narrative Performed At POC-Glucose meter (08/20/2018 11:35 AM CDT)Only the most recent of7 resultswithin the time period is included. POC-Glucose Meter 129 (H)Comment: TESTED AT 70 - 110 mg/dL [facility] [address] [facility] [address] Specimen Blood Performing Organization Address City/State/Zipcode Phone Number [address] [address] CENTER ANESTHESIA SPINAL BLOCK (08/20/2018 8:20 AM CDT) Narrative Performed At Marta Parson MD 08/27/2018 12:18 PM Spinal Block Patient location during procedure: OR Start time: 08/20/2018 8:12 AM End time: 08/20/2018 8:18 AM Procedure Indication: procedure for pain, at surgeon's request and post-op pain management Staffing Anesthesiologist: Marta Parson MD Resident/YAM CURER: Abdias Worthington Preanesthetic Checklist Completed: patient identified, [...] pain management Staffing Anesthesiologist: Marta Parson MD Resident/YAM CURER: Abdias Worthington Preanesthetic Checklist Completed: patient identified, [...] is included. ABO/RH AUTOMATED (BEAKER) A POSITIVE [facility] Ab Scrn NEGATIVE [facility] Specimen Blood Performing Organization Address City/State/Zipcode Phone Number [facility] [address] [place] [address] Hepatic function panel (07/23/2018 4:50 AM CDT)Only the most recent of3 resultswithin the time period is included. Protein, Total 6.3 6.0 - 8.3 gm/dL [facility] Albumin 3.9 3.5 - 5.0 g/dL [facility] Total Bilirubin 0.3 0.2 - 1.2 mg/dL [facility] Bilirubin, Direct 0.1 0.1 - 0.5 mg/dL [facility] Alkaline Phosphatase 68 40 - 150 U/L [facility] AST 23 5 - 34 U/L [facility] ALT 41 6 - 55 U/L [facility] Specimen Blood Performing Organization Address City/State/Zipcode Phone Number [facility] [address] [place], [place] [phone] [place] Prealbumin (07/22/2018 4:44 AM CDT) Prealbumin 36 14 - 45 mg/dL [facility] Specimen Blood Performing Organization Address City/[facility]/Zipcode Phone Number [place] [phone] [place] [address] abdomen pelvis without contrast (07/21/2018 3:48 AM CDT) Specimen Narrative Performed At FINAL REPORT [employer] [facility] CLINICAL HISTORY: Acute abdominal pain, history of [...] the previously described findings of colitis. Signed: jC Sow MD Report Verified Date/Time:07/21/2018 04:05:05 Reading Location: [address] Reading Room Procedure Note Interface, External [...] Report Verified Date/Time: 07/21/2018 04:05:05 Reading Location: [address] Reading Room Performing Organization Address City/State/Zipcode Phone Number GE RIS POCT , urine (07/20/2018 10:51 PM CDT) Test Urine, POC Negative Control line present?, POC Yes Background clear?, POC No=Invalid Patient Result UPT Cassette Lot #, POC [id number] UPT Cassette Expiration Date, POC 11/29/2019 Specimen Urine ABORH, manual (07/20/2018 10:48 PM CDT) ABO Grouping A [facility] Rh Factor POS [facility] Specimen Blood Performing Organization Address [facility] Phone Number [facility] [address] [place] [address] PTT (aPTT) (07/20/2018 9:32 PM CDT) PTT 24.6 22.5 - 36.0 seconds [facility] Specimen Blood Performing Organization Address [facility] Phone Number [facility] [address] [place] [address] CENTER PT/INR (07/20/2018 9:32 PM CDT) Protime 13.2 11.7 - 14.7 seconds [facility] INR 1.0 <=5.9 [facility] Specimen Blood Narrative Performed At RECOMMENDED COUMADIN/WARFARIN INR THERAPY [facility] RANGES STANDARD DOSE: 2.0 - 3.0 Includes: PROPHYLAXIS for venous thrombosis, systemic embolization; TREATMENT for venous thrombosis and/or pulmonary embolus. HIGH RISK: Target INR is 2.5-3.5 for patients with mechanical heart valves. Performing Organization Address [facility] Phone Number [address] [address] [phone] CENTER Lipase (07/20/2018 9:32 PM CDT) Lipase 12 8 - 78 U/L [facility] Specimen Blood Performing Organization Address [facility] Phone Number [address] [address] [phone] CENTER Comprehensive metabolic panel (07/20/2018 9:32 PM CDT) Protein, Total 5.6 (L) 6.0 - 8.3 gm/dL [facility] Albumin 3.5 3.5 - 5.0 g/dL [facility] Alkaline Phosphatase 54 40 - 150 U/L [facility] Total Bilirubin 0.2 0.2 - 1.2 mg/dL [facility] Sodium 143 136 - 145 meq/L [facility] Potassium 3.9 3.5 - 5.1 meq/L [facility] Chloride 106 98 - 107 meq/L [facility] CO2 27 22 - 29 meq/L [facility] BUN 12 7 - 21 mg/dL [facility] Creatinine 0.76 0.57 - 1.25 mg/dL [facility] Glucose 84 70 - 105 mg/dL [facility] Calcium 8.5 8.4 - 10.2 mg/dL [facility] AST 13 5 - 34 U/L [facility] ALT 27 6 - 55 U/L [facility] EGFR 82Comment: ESTIMATED GFR mL/min/1.73 sq m [facility] IS NOT ACCURATE [facility] CREATININE CLEARANCE IN PREDICTING GLOMERULAR FILTRATION RATE. ESTIMATED GFR IS NOT APPLICABLE FOR DIALYSIS PATIENTS. Specimen Blood Performing Organization Address City/State/Zipcode Phone Number [facility] [address] [place] [address] CENTER REPORT OF PROCEDURE - ENDOSCOPY URL (07/11/2018 9:45 AM CDT) Narrative Performed At CT abdomen & pelvis - enterography (07/08/2018 6:32 AM CDT) Specimen Narrative Performed At FINAL REPORT [facility] INDICATION: Abdominal pain and history of Crohn's [...] MD Report Verified Date/Time:07/08/2018 14:17:31 Reading Location: [facility] C013X Ortho Consult Reading Room Procedure Note [...] Report Verified Date/Time: 07/08/2018 14:17:31 Reading Location: [facility] C013X Ortho Consult Reading Room Performing Organization Address City/[facility] Phone Number [facility] XR chest 1 view portable / bedside (07/06/2018 1:20 PM [employer]PER[employer]DER[employer]) Specimen Narrative Performed At FINAL REPORT [facility] TECHNIQUE: Frontal chest radiograph dated 07/06/2018. CLINICAL HISTORY: Fever COMPARISON STUDY: None IMPRESSION: Lungs are clear. No pleural effusion or pneumothorax. Cardiomediastinal silhouette is normal in size. No pulmonary edema. No fracture. Signed: Xiao Mckinney MD Report Verified Date/Time:07/06/2018 14:21:04 Reading Location: [facility] Radiology Reading Room Procedure Note Interface, External Ris In - 07/06/2018 2:23 PM [employer] FINAL REPORT TECHNIQUE: Frontal chest radiograph dated 07/06/2018. CLINICAL HISTORY: Fever COMPARISON STUDY: None IMPRESSION: Lungs are clear. No pleural effusion or pneumothorax. Cardiomediastinal silhouette is normal in size. No pulmonary edema. No fracture. Signed: Xiao Mckinney MD Report Verified Date/Time: 07/06/2018 14:21:04 Reading Location: [facility] Radiology Reading Room Performing Organization Address City/[facility] Phone Number GE RIS Blood culture (07/06/2018 11:14 AM [employer])Only the most recent of2 resultswithin the time period is included. Result No growth in 5 days [facility] Specimen Blood Performing Organization Address [facility]/Zipcode Phone Number [address] [address] [place] Lactic acid, venous, whole blood (07/06/2018 11:13 AM [employer]) Lactate, Venous 0.8Comment: Specimen 0.5 - 2.2 mmol/L [facility] moderately hemolyzed [facility] Specimen Blood Performing Organization Address [facility] Phone Number [address] [address] [phone] [place] Urinalysis w/Microscopic + Reflex to Culture (07/06/2018 10:14 AM [employer]) Color, UA Light Yellow [facility] Clarity, UA Clear [facility] Specific [place], UA 1.020 1.001 - 1.035 [facility] pH, UA 6.5 5.0 - 8.0 [facility] Protein, UA Negative Negative [facility] Glucose, UA Negative Negative [facility] Ketones, UA Negative Negative [facility] Bilirubin, UA Negative Negative [facility] Blood, UA Negative Negative [facility] Nitrite, UA Negative Negative [facility] Leukocytes, UA Negative Negative [facility] Urobilinogen, UA 0.2 0.2 - 1.0 mg/dL [facility] RBC, UA <1 /HPF [facility] WBC, UA 0 /HPF [facility] Squam Epithel, UA <1 /HPF [facility] Specimen Source [facility] Specimen Urine Performing Organization Address [facility] Phone Number [address] [place] [address] [place] Rapid drug screen, urine (07/06/2018 10:14 AM SUPERVIS[employer]DERING) Barbiturate Screen Negative Negative [facility] Benzodiazepine Screen Positive (A) Negative [facility] Cocaine (Metab.) Screen Negative Negative [facility] Methadone Screen Negative Negative [facility] Opiate Screen Positive (A) Negative [facility] Cannabinoid Screen Negative Negative [facility] Amph/Methamph Screen Negative Negative [facility] Phencyclidine Screen Negative Negative [facility] Oxycodone Screen Negative Negative [facility] Specimen Urine Narrative Performed At [facility]GC[facility] CONC. Cocaine 300 ng/mL Hufuvkefjuf12 ng/mL Qczlxtfzwsrsno569 ng/mL Barbiturate 200 ng/mL Ujqjadycuwfvz40 ng/mL Nzxuxa285 ng/mL Methadone 300 ng/mL Amphetamine/ 1000 ng/mL Methamphetamine Oxycodone 300 ng/mL This assay provides an unconfirmed qualitative test result for the clinical management of patients in emergency situations. Chain of custody not maintained. Some uhwm-gru-wlavcep medications, as well as adulterants, may cause inaccurate results. Clinical correlation should be applied. A more comprehensive drug screen or confirmation of a detected drug may be performed upon request. Performing Organization Address City/State/Zipcode Phone Number [facility] [address] [place] [phone] [place] after 11/24/2017 Insurance Payer Benefit Plan / Group Subscriber ID Type Phone Address MEDICARE MEDICARE A B xxxxxxxxxxx Medicare DIAZ MEDICAID MEDICAID DIAZ xxxxxxxxx ([place]) [address] [place] [phone] Advance Directives For more information, please contact:[place] [id number] [place], [place] [phone] Code Status Date Activated Date Inactivated Comments [...]
--- OUTSIDE RECORDS SUMMARY | 2018-11-25 12:12 | XMS REPORT ---
:1970 [facility] Address [address] [place] [address] [address]. [address] [place] [address] Care Team Providers Name Role Phone DR [...] [facility] [id number] 09:30:00 EDGARD 2016-07-15 2016-07-19 Inpatient [address] [facility] [id number] 18:47:00 10:30:00 BLAKE 2013-11-19 2013-11-19 Emergency [facility] [id number] 10:08:00 12:55:00 RADHA Results Test Description Test Time Test Comments Text Results Atomic Results Result Comments MAGNESIUM 2018-11-16 08:01:00 Test Item Value Reference Range Comments MAGNESIUM (BEAKER) (test jcit=463) 1.8 mg/dL 1.6-2.6 Specimen moderately hemolyzed BASIC METABOLIC [id number] 08:01:00 Test Item Value Reference Range Comments SODIUM (BEAKER) (test 137 meq/L 136-145 mllx=472) POTASSIUM (BEAKER) (test 4.5 meq/L 3.5-5.1 Specimen moderately rktp=859) hemolyzed CHLORIDE (BEAKER) (test 109 meq/L 98-107 rfov=080) CO2 (BEAKER) (test 19 meq/L 22-29 rohx=353) BLOOD UREA NITROGEN 9 mg/dL 7-21 (BEAKER) (test jpbm=662) CREATININE (BEAKER) (test 0.71 mg/dL 0.57-1.25 Specimen moderately tbjg=334) hemolyzed GLUCOSE RANDOM (BEAKER) 85 mg/dL 70-105 (test pgsz=479) CALCIUM (BEAKER) (test 9.0 mg/dL 8.4-10.2 haow=925) EGFR (BEAKER) (test 88 mL/min/1.73 sq m ESTIMATED GFR IS NOT psgc=3493) ACCURATE CREATININE CLEARANCE IN PREDICTING GLOMERULAR FILTRATION RATE. ESTIMATED GFR IS NOT APPLICABLE FOR DIALYSIS PATIENTS. CBC W/PLT COUNT & AUTO [id number] 05:59:00 Test Item Value Reference Range Comments WHITE BLOOD CELL COUNT (BEAKER) (test hdbe=366) 7.3 K/ L 3.5-10.5 RED BLOOD CELL COUNT (BEAKER) (test cxwq=998) 4.15 M/ L 3.93-5.22 HEMOGLOBIN (BEAKER) (test tqqr=229) 12.4 GM/DL 11.2-15.7 HEMATOCRIT (BEAKER) (test qpep=618) 38.4 % 34.1-44.9 MEAN CORPUSCULAR VOLUME (BEAKER) (test mkoe=671) 92.5 fL 79.4-94.8 MEAN CORPUSCULAR HEMOGLOBIN (BEAKER) (test 29.9 pg 25.6-32.2 djfj=802) MEAN CORPUSCULAR HEMOGLOBIN CONC (BEAKER) (test 32.3 GM/DL 32.2-35.5 jved=630) RED CELL DISTRIBUTION WIDTH (BEAKER) (test 14.4 % 11.7-14.4 eccg=225) PLATELET COUNT (BEAKER) (test uuzf=535) 275 K/CU MM 150-450 MEAN PLATELET VOLUME (BEAKER) (test kpjc=300) 8.9 fL 9.4-12.3 NUCLEATED RED BLOOD CELLS (BEAKER) (test 0 /100 WBC 0-0 nmkc=453) NEUTROPHILS RELATIVE PERCENT (BEAKER) (test 49 % ofsc=614) LYMPHOCYTES RELATIVE PERCENT (BEAKER) (test 41 % fomf=688) MONOCYTES RELATIVE PERCENT (BEAKER) (test 7 % jczz=206) EOSINOPHILS RELATIVE PERCENT (BEAKER) (test 3 % bqgs=415) BASOPHILS RELATIVE PERCENT (BEAKER) (test 0 % oeny=172) NEUTROPHILS ABSOLUTE COUNT (BEAKER) (test 3.54 K/ L 1.56-6.13 fdff=729) LYMPHOCYTES ABSOLUTE COUNT (BEAKER) (test 2.99 K/ L 1.18-3.74 jrya=862) MONOCYTES ABSOLUTE COUNT (BEAKER) (test 0.52 K/ L 0.24-0.36 pfef=597) EOSINOPHILS ABSOLUTE COUNT (BEAKER) (test 0.20 K/ L 0.04-0.36 rrzq=502) BASOPHILS ABSOLUTE COUNT (BEAKER) (test 0.03 K/ L 0.01-0.08 nzfe=623) IMMATURE GRANULOCYTES-RELATIVE PERCENT (BEAKER) 0 % 0-1 (test utiu=8801) [id number] 07:04:00 Test Item Value Reference Range Comments MAGNESIUM (BEAKER) (test ttej=867) 1.8 mg/dL 1.6-2.6 BASIC METABOLIC [id number] 07:04:00 Test Item Value Reference Range Comments SODIUM (BEAKER) (test 139 meq/L 136-145 rbpc=716) POTASSIUM (BEAKER) (test 4.5 meq/L 3.5-5.1 qlox=169) CHLORIDE (BEAKER) (test 110 meq/L 98-107 zxph=637) CO2 (BEAKER) (test 23 meq/L 22-29 kxsj=314) BLOOD UREA NITROGEN 13 mg/dL 7-21 (BEAKER) (test ttrt=839) CREATININE (BEAKER) (test 0.76 mg/dL 0.57-1.25 dpyk=957) GLUCOSE RANDOM (BEAKER) 100 mg/dL 70-105 (test pngg=976) CALCIUM (BEAKER) (test 9.2 mg/dL 8.4-10.2 nwnt=697) EGFR (BEAKER) (test 82 mL/min/1.73 sq m ESTIMATED GFR IS NOT wdwa=6176) ACCURATE CREATININE CLEARANCE IN PREDICTING GLOMERULAR FILTRATION RATE. ESTIMATED GFR IS NOT APPLICABLE FOR DIALYSIS PATIENTS. CORTISOL,60 [id number] 07:01:00 Test Item Value Reference Range Comments CORTISOL BASELINE NETWORKED (BEAKER) (test < mcg/dL argl=4881) CORTISOL 30 MINUTE NETWORKED (BEAKER) (test 6.0 mcg/dL iyfm=8095) CORTISOL, 60 MINUTE (BEAKER) (test vggu=8112) 7.0 ug/dL ACTH STIMULATION TEST INTERPRETATION GUIDELINES(Synonyms: [...] serum cortisollevel 60 minutes after cosyntropin administration.CORTISOL,30 [id number] 07:01:00 Test Item Value Reference Range Comments CORTISOL BASELINE NETWORKED (BEAKER) (test < mcg/dL ntpg=3178) CORTISOL, 30 MINUTE (BEAKER) (test neew=2607) 6.0 ug/dL ACTH STIMULATION TEST INTERPRETATION GUIDELINES(Synonyms: [...] after cosyntropin administration.CBC W/PLT COUNT & AUTO [id number] 05:46:00 Test Item Value Reference Range Comments WHITE BLOOD CELL COUNT (BEAKER) (test jelz=327) 6.0 K/ L 3.5-10.5 RED BLOOD CELL COUNT (BEAKER) (test tonc=428) 4.25 M/ L 3.93-5.22 HEMOGLOBIN (BEAKER) (test cjoo=515) 12.6 GM/DL 11.2-15.7 HEMATOCRIT (BEAKER) (test gcsv=857) 40.4 % 34.1-44.9 MEAN CORPUSCULAR VOLUME (BEAKER) (test elkn=589) 95.1 fL 79.4-94.8 MEAN CORPUSCULAR HEMOGLOBIN (BEAKER) (test 29.6 pg 25.6-32.2 sdei=850) MEAN CORPUSCULAR HEMOGLOBIN CONC (BEAKER) (test 31.2 GM/DL 32.2-35.5 fbaj=771) RED CELL DISTRIBUTION WIDTH (BEAKER) (test 14.6 % 11.7-14.4 hkby=481) PLATELET COUNT (BEAKER) (test clcq=984) 223 K/CU MM 150-450 MEAN PLATELET VOLUME (BEAKER) (test xzlu=326) 8.6 fL 9.4-12.3 NUCLEATED RED BLOOD CELLS (BEAKER) (test 0 /100 WBC 0-0 zhzp=460) NEUTROPHILS RELATIVE PERCENT (BEAKER) (test 50 % mizd=023) LYMPHOCYTES RELATIVE PERCENT (BEAKER) (test 37 % jjqm=581) MONOCYTES RELATIVE PERCENT (BEAKER) (test 8 % mrzw=426) EOSINOPHILS RELATIVE PERCENT (BEAKER) (test 5 % bkun=563) BASOPHILS RELATIVE PERCENT (BEAKER) (test 1 % fsta=745) NEUTROPHILS ABSOLUTE COUNT (BEAKER) (test 3.01 K/ L 1.56-6.13 tjcq=452) LYMPHOCYTES ABSOLUTE COUNT (BEAKER) (test 2.24 K/ L 1.18-3.74 xnzb=856) MONOCYTES ABSOLUTE COUNT (BEAKER) (test 0.45 K/ L 0.24-0.36 mzix=932) EOSINOPHILS ABSOLUTE COUNT (BEAKER) (test 0.29 K/ L 0.04-0.36 ejen=307) BASOPHILS ABSOLUTE COUNT (BEAKER) (test 0.03 K/ L 0.01-0.08 vxjd=963) IMMATURE GRANULOCYTES-RELATIVE PERCENT (BEAKER) 0 % 0-1 (test oqww=8179) CORTISOL,[id number] 19:10:00 Test Item Value Reference Range Comments CORTISOL, BASELINE (BEAKER) (test wdnk=1527) < ug/dL ACTH STIMULATION TEST INTERPRETATION GUIDELINES(Synonyms: [...] to a study by Padilla et al (MIGULE 2000,283( 8):1038-45), the ACTH Stimulation Test provides [...] Draw serum cortisollevel 60 minutes after cosyntropin administration.[id number] 14:23:00 Test Item Value Reference Range Comments MAGNESIUM (BEAKER) (test nujt=350) 1.8 mg/dL 1.6-2.6 BASIC METABOLIC [id number] 14:23:00 Test Item Value Reference Range Comments SODIUM (BEAKER) (test 138 meq/L 136-145 olhl=349) POTASSIUM (BEAKER) (test 4.2 meq/L 3.5-5.1 gugy=395) CHLORIDE (BEAKER) (test 104 meq/L 98-107 amfw=078) CO2 (BEAKER) (test 24 meq/L 22-29 jinn=965) BLOOD UREA NITROGEN 10 mg/dL 7-21 (BEAKER) (test jzny=813) CREATININE (BEAKER) (test 0.82 mg/dL 0.57-1.25 nwhm=805) GLUCOSE RANDOM (BEAKER) 83 mg/dL 70-105 (test vwuc=542) CALCIUM (BEAKER) (test 9.5 mg/dL 8.4-10.2 rawz=601) EGFR (BEAKER) (test 75 mL/min/1.73 sq m ESTIMATED GFR IS NOT xarb=5318) ACCURATE CREATININE CLEARANCE IN PREDICTING GLOMERULAR FILTRATION RATE. ESTIMATED GFR IS NOT APPLICABLE FOR DIALYSIS PATIENTS. CBC W/PLT COUNT & AUTO [id number] 14:01:00 Test Item Value Reference Range Comments WHITE BLOOD CELL COUNT (BEAKER) (test qmkd=922) 7.6 K/ L 3.5-10.5 RED BLOOD CELL COUNT (BEAKER) (test ymce=065) 4.59 M/ L 3.93-5.22 HEMOGLOBIN (BEAKER) (test onwj=762) 13.5 GM/DL 11.2-15.7 HEMATOCRIT (BEAKER) (test cwrr=895) 43.0 % 34.1-44.9 MEAN CORPUSCULAR VOLUME (BEAKER) (test zopg=546) 93.7 fL 79.4-94.8 MEAN CORPUSCULAR HEMOGLOBIN (BEAKER) (test 29.4 pg 25.6-32.2 nhry=575) MEAN CORPUSCULAR HEMOGLOBIN CONC (BEAKER) (test 31.4 GM/DL 32.2-35.5 lyuk=634) RED CELL DISTRIBUTION WIDTH (BEAKER) (test 14.5 % 11.7-14.4 vibr=214) PLATELET COUNT (BEAKER) (test glod=619) 262 K/CU MM 150-450 MEAN PLATELET VOLUME (BEAKER) (test aofh=595) 8.5 fL 9.4-12.3 NUCLEATED RED BLOOD CELLS (BEAKER) (test 0 /100 WBC 0-0 svxx=391) NEUTROPHILS RELATIVE PERCENT (BEAKER) (test 52 % rdaw=949) LYMPHOCYTES RELATIVE PERCENT (BEAKER) (test 37 % duoy=477) MONOCYTES RELATIVE PERCENT (BEAKER) (test 6 % lcbq=675) EOSINOPHILS RELATIVE PERCENT (BEAKER) (test 4 % pjko=520) BASOPHILS RELATIVE PERCENT (BEAKER) (test 0 % emxh=678) NEUTROPHILS ABSOLUTE COUNT (BEAKER) (test 3.94 K/ L 1.56-6.13 unbq=160) LYMPHOCYTES ABSOLUTE COUNT (BEAKER) (test 2.82 K/ L 1.18-3.74 lciq=555) MONOCYTES ABSOLUTE COUNT (BEAKER) (test 0.46 K/ L 0.24-0.36 nole=779) EOSINOPHILS ABSOLUTE COUNT (BEAKER) (test 0.30 K/ L 0.04-0.36 lexi=516) BASOPHILS ABSOLUTE COUNT (BEAKER) (test 0.02 K/ L 0.01-0.08 ieet=817) IMMATURE GRANULOCYTES-RELATIVE PERCENT (BEAKER) 0 % 0-1 (test swll=7223) OVA AND PARASITE [id number] 12:03:00 Test Item Value Reference Range Comments DIRECT SMEAR - O\\T\\P No ova or parasites seen No ova or parasites seen (BEAKER) (test vgtf=455) CONCENTRATE SMEAR - O\\T\\P No ova or parasites seen No ova or parasites seen (BEAKER) (test jvhe=033) TRICHROME SMEAR - O\\T\\P No ova or parasites seen No ova or parasites seen (BEAKER) (test mbdk=237) [id number] 05:30:00 Test Item Value Reference Range Comments MAGNESIUM (BEAKER) (test ryaq=091) 1.9 mg/dL 1.6-2.6 BASIC METABOLIC [id number] 05:30:00 Test Item Value Reference Range Comments SODIUM (BEAKER) (test 143 meq/L 136-145 ursa=363) POTASSIUM (BEAKER) (test 4.2 meq/L 3.5-5.1 wfsd=671) CHLORIDE (BEAKER) (test 109 meq/L 98-107 tumy=757) CO2 (BEAKER) (test 28 meq/L 22-29 oiwj=955) BLOOD UREA NITROGEN 7 mg/dL 7-21 (BEAKER) (test jdbt=755) CREATININE (BEAKER) (test 0.70 mg/dL 0.57-1.25 vmoc=808) GLUCOSE RANDOM (BEAKER) 80 mg/dL 70-105 (test dkgr=651) CALCIUM (BEAKER) (test 9.2 mg/dL 8.4-10.2 zewd=485) EGFR (BEAKER) (test 90 mL/min/1.73 sq m ESTIMATED GFR IS NOT qhup=2362) ACCURATE CREATININE CLEARANCE IN PREDICTING GLOMERULAR FILTRATION RATE. ESTIMATED GFR IS NOT APPLICABLE FOR DIALYSIS PATIENTS. CBC W/PLT COUNT & AUTO [id number] 04:58:00 Test Item Value Reference Range Comments WHITE BLOOD CELL COUNT (BEAKER) (test zhyc=135) 6.7 K/ L 3.5-10.5 RED BLOOD CELL COUNT (BEAKER) (test qhjp=610) 4.58 M/ L 3.93-5.22 HEMOGLOBIN (BEAKER) (test kath=363) 13.5 GM/DL 11.2-15.7 HEMATOCRIT (BEAKER) (test gjwf=573) 43.8 % 34.1-44.9 MEAN CORPUSCULAR VOLUME (BEAKER) (test adbw=588) 95.6 fL 79.4-94.8 MEAN CORPUSCULAR HEMOGLOBIN (BEAKER) (test 29.5 pg 25.6-32.2 roag=865) MEAN CORPUSCULAR HEMOGLOBIN CONC (BEAKER) (test 30.8 GM/DL 32.2-35.5 cagp=871) RED CELL DISTRIBUTION WIDTH (BEAKER) (test 14.7 % 11.7-14.4 ulqa=276) PLATELET COUNT (BEAKER) (test brnh=565) 242 K/CU MM 150-450 MEAN PLATELET VOLUME (BEAKER) (test nykf=844) 8.4 fL 9.4-12.3 NUCLEATED RED BLOOD CELLS (BEAKER) (test 0 /100 WBC 0-0 tvrk=470) NEUTROPHILS RELATIVE PERCENT (BEAKER) (test 49 % qxzd=483) LYMPHOCYTES RELATIVE PERCENT (BEAKER) (test 40 % fhwv=057) MONOCYTES RELATIVE PERCENT (BEAKER) (test 7 % ilwz=309) EOSINOPHILS RELATIVE PERCENT (BEAKER) (test 4 % wdzg=696) BASOPHILS RELATIVE PERCENT (BEAKER) (test 0 % grse=484) NEUTROPHILS ABSOLUTE COUNT (BEAKER) (test 3.25 K/ L 1.56-6.13 gutr=883) LYMPHOCYTES ABSOLUTE COUNT (BEAKER) (test 2.68 K/ L 1.18-3.74 veen=723) MONOCYTES ABSOLUTE COUNT (BEAKER) (test 0.44 K/ L 0.24-0.36 uldz=234) EOSINOPHILS ABSOLUTE COUNT (BEAKER) (test 0.28 K/ L 0.04-0.36 umqf=140) BASOPHILS ABSOLUTE COUNT (BEAKER) (test 0.03 K/ L 0.01-0.08 yfdo=990) IMMATURE GRANULOCYTES-RELATIVE PERCENT (BEAKER) 0 % 0-1 (test dows=4022) TISSUE [id number] 15:51:00Surgical Pathology Report Case: [id number] Authorizing Provider: Bartolo Quinn Collected: 11/10/2018 1543 Ordering Location: [address] Received: 11/12/2018 0813 Service Pathologist: Linda [...] CRYPT DISTORTION Signing Pathologist Direct Phone Line: [phone] signed by Linda Mullen MD on 11/12/2018 at 3:51 PMPatient's history of Crohn's disease is noted. The current sampling shows no significant active or chronic colitis. This may represent complete histologic resolution following treatment. Clinical and endoscopic correlation is recommended.[id number] and postop diagnosis: diarrhea A. Neoterminal ileum [...] E1. CG/ pl Performed.STOOL CULTURE + SHIGA [id number] 08:26:00 Test Item Value Reference Range Comments CULTURE (BEAKER) (test No Salmonella, Shigella or dylw=0202) Campylobacter isolated GI PATHOGEN PROFILE BY [id number] 08:20:00 Test Item Value Reference Range Comments CAMPYLOBACTER (PCR) (test znmt=1595061) Not detected Not detected PLESIOMONAS SHIGELLOIDES (PCR) (test Not detected Not detected sdrz=9622436) SALMONELLA (PCR) (test jtfd=7587056) Not detected Not detected YERSINIA ENTEROCOLITICA (PCR) (test Not detected Not detected ycon=5911988) VIBRIO CHOLERAE (PCR) (test qiip=2476042) Not detected Not detected ENTEROAGGREGATIVE E. COLI (EAEC) BY PCR (test Not detected Not detected xqhm=0178576) ENTEROPATHOGENIC E. COLI (EPEC) BY PCR (test Not detected Not detected qrvi=5060126) ENTEROTOXIGENIC E. COLI (ETEC) LT/ST BY PCR Not detected Not detected (test rtyb=5718431) SHIGA-LIKE TOXIN-PRODUCING E. COLI (STEC) Not detected Not detected STX1/STX2 (test aslf=3049029) E. COLI O157 (PCR) (test bjbc=9583265) Not detected SHIGELLA/ENTEROINVASIVE E. COLI (EIEC) BY PCR Not detected Not detected (test zncm=6607415) CRYPTOSPORIDIUM (PCR) (test izxx=0026753) Not detected Not detected CYCLOSPORA CAYETANENSIS (PCR) (test Not detected Not detected omlv=0228567) ENTAMOEBA HISTOLYTICA (PCR) (test qdjf=1261584) Not detected Not detected GIARDIA LAMBLIA (PCR) (test ozmv=7597842) Not detected Not detected ADENOVIRUS F 40/41 (PCR) (test aerk=6217738) Not detected Not detected ASTROVIRUS (PCR) (test mwju=5861776) Not detected Not detected NOROVIRUS GI/GII (PCR) (test sdnu=0412592) Not detected Not detected ROTAVIRUS A (PCR) (test gqxi=8135725) Not detected Not detected SAPOVIRUS (I, II, IV, V) BY PCR (test Not detected Not detected acfe=9712066) VIBRIO (PARAHAEMOLYTICUS, VULNIFICUS) (test Not detected Not detected exuw=0121549) Other viruses, parasites and bacteria not targeted [...] [facility] Molecular Diagnostics Laboratory using the [employer] Gastrointestinal Panel. It is FDA cleared and has been verified and approved by the [facility] Molecular Diagnostics Laboratory for clinical use. This laboratory is CLIA-certified and College ofAmerican Pathologists (CAP)-accredited to perform high complexity testing.[id number] 06:24:00 Test Item Value Reference Range Comments CORTISOL, TOTAL (BEAKER) (test ldzc=1699) < ug/dL 3.7-19.4 BASIC METABOLIC [id number] 05:50:00 Test Item Value Reference Range Comments SODIUM (BEAKER) (test 142 meq/L 136-145 bukq=969) POTASSIUM (BEAKER) (test 4.3 meq/L 3.5-5.1 Specimen slightly hdqa=709) hemolyzed CHLORIDE (BEAKER) (test 114 meq/L 98-107 bkfw=275) CO2 (BEAKER) (test 21 meq/L 22-29 xoyt=719) BLOOD UREA NITROGEN 3 mg/dL 7-21 (BEAKER) (test jdin=001) CREATININE (BEAKER) (test 0.66 mg/dL 0.57-1.25 Specimen slightly jmmd=798) hemolyzed GLUCOSE RANDOM (BEAKER) 84 mg/dL 70-105 (test lpuh=857) CALCIUM (BEAKER) (test 8.6 mg/dL 8.4-10.2 dmnr=252) EGFR (BEAKER) (test 96 mL/min/1.73 sq m ESTIMATED GFR IS NOT ibwj=9655) ACCURATE CREATININE CLEARANCE IN PREDICTING GLOMERULAR FILTRATION RATE. ESTIMATED GFR IS NOT APPLICABLE FOR DIALYSIS PATIENTS. SHIGA TOXIN [id number] 14:16:00 Test Item Value Reference Range Comments SHIGA TOXIN 1 (BEAKER) (test uzie=2880) Not detected Not detected SHIGA TOXIN 2 (BEAKER) (test rass=3156) Not detected Not detected STOOL PATH [id number] 10:08:00 Test Item Value Reference Range Comments PATHOGEN EXAM CHARGED (BEAKER) (test onyq=0720) Done TSH/FREE T4 IF [id number] 05:59:00 Test Item Value Reference Range Comments THYROID STIMULATING HORMONE (BEAKER) (test 2.84 uIU/mL 0.35-4.94 uhzh=104) BASIC METABOLIC [id number] 05:38:00 Test Item Value Reference Range Comments SODIUM (BEAKER) (test 135 meq/L 136-145 quwx=403) POTASSIUM (BEAKER) (test 4.0 meq/L 3.5-5.1 wpds=914) CHLORIDE (BEAKER) (test 106 meq/L 98-107 xemz=617) CO2 (BEAKER) (test 22 meq/L 22-29 inid=692) BLOOD UREA NITROGEN 5 mg/dL 7-21 (BEAKER) (test nggn=146) CREATININE (BEAKER) (test 0.68 mg/dL 0.57-1.25 fzzw=544) GLUCOSE RANDOM (BEAKER) 84 mg/dL 70-105 (test rgtf=573) CALCIUM (BEAKER) (test 8.2 mg/dL 8.4-10.2 yycc=038) EGFR (BEAKER) (test 93 mL/min/1.73 sq m ESTIMATED GFR IS NOT zoid=2482) ACCURATE CREATININE CLEARANCE IN PREDICTING GLOMERULAR FILTRATION RATE. ESTIMATED GFR IS NOT APPLICABLE FOR DIALYSIS PATIENTS. RAD, ABDOMEN/KUB, 1 VIEW [id number] 14:37:00Reason for exam:->post- obstructive diarrheaShould this be [...] Verified Date/Time : 11/07/2018 14:37:57 Reading Location: [address] Consult Reading Room CT, [id number] 14:25:00FINAL REPORT TECHNIQUE: CT of the abdomen [...] MDReport Verified Date/Time: 2018 14:25:25 Reading Location: [facility] B1 C013Y CT Body Reading Room CBC W/ PLT COUNT & AUTO [id number] 13:14:00 Test Item Value Reference Range Comments WHITE BLOOD CELL COUNT (BEAKER) (test evjj=392) 7.1 K/ L 3.5-10.5 RED BLOOD CELL COUNT (BEAKER) (test oowx=559) 4.42 M/ L 3.93-5.22 HEMOGLOBIN (BEAKER) (test zfgw=765) 13.0 GM/DL 11.2-15.7 HEMATOCRIT (BEAKER) (test dwwh=397) 41.6 % 34.1-44.9 MEAN CORPUSCULAR VOLUME (BEAKER) (test xgpf=833) 94.1 fL 79.4-94.8 MEAN CORPUSCULAR HEMOGLOBIN (BEAKER) (test 29.4 pg 25.6-32.2 dxrl=374) MEAN CORPUSCULAR HEMOGLOBIN CONC (BEAKER) (test 31.3 GM/DL 32.2-35.5 khau=161) RED CELL DISTRIBUTION WIDTH (BEAKER) (test 15.2 % 11.7-14.4 gfap=792) PLATELET COUNT (BEAKER) (test byvt=840) 280 K/CU MM 150-450 MEAN PLATELET VOLUME (BEAKER) (test kxlj=037) 8.3 fL 9.4-12.3 NUCLEATED RED BLOOD CELLS (BEAKER) (test 0 /100 WBC 0-0 vdwc=851) (CELLAVISION MANUAL DIFF)2018-11-07 13:14:00 Test Item Value Reference Range Comments NEUTROPHILS - REL (CELLAVISION)(BEAKER) (test 83 % htnc=5751) LYMPHOCYTES - REL (CELLAVISION)(BEAKER) (test 13 % vlok=0425) MONOCYTES - REL (CELLAVISION)(BEAKER) (test 4 % ekeg=7227) NEUTROPHILS - ABS (CELLAVISION)(BEAKER) (test 5.89 K/ul 1.56-6.13 jbww=4825) LYMPHOCYTES - ABS (CELLAVISION)(BEAKER) (test 0.92 K/ul 1.18-3.74 xeao=4335) MONOCYTES - ABS (CELLAVISION)(BEAKER) (test 0.28 K/uL 0.24-0.36 uwnw=5513) TOTAL COUNTED (BEAKER) (test soyy=3236) 100 RBC MORPHOLOGY (BEAKER) (test enkk=426) Normal WBC MORPHOLOGY (BEAKER) (test jykp=088) Normal PLT MORPHOLOGY (BEAKER) (test lkju=370) Normal ARTIFACT (CELLAVISION)(BEAKER) (test kldq=1309) Present PLATELET CONCENTRATION (CELLAVISION)(BEAKER) (test Adequate mxvv=8310) Received comment: User comments: Slide comments:C. DIFFICILE GDH [id number] 12:53:00 Test Item Value Reference Range Comments CDT TOXIN (test Negative Negative qepq=[id number]) CDT GDH ANTIGEN (test Negative Negative No indication of Clostridium turf=[id number]) difficile infection and no colonization. Discontinue enteric isolation and therapy. Testing performed by [employer] Rapid Cassette Assay. For GDH, published sensitivity of the assay is 98.7% compared to cytotoxicity testing. For Toxin AB, published sensitivity is 87.8% and specificity 99.4% compared to cytotoxicity testing.Verification of kit performance was done by the [facility] Microbiology Lab prior to clinical use.C-REACTIVE [id number] 06:53:00 Test Item Value Reference Range Comments C-REACTIVE PROTEIN (BEAKER) (test hvuh=851) 0.37 mg/dL 0.00-0.50 BASIC METABOLIC [id number] 06:41:00 Test Item Value Reference Range Comments SODIUM (BEAKER) (test 135 meq/L 136-145 wrvm=676) POTASSIUM (BEAKER) (test 4.3 meq/L 3.5-5.1 gbxa=120) CHLORIDE (BEAKER) (test 104 meq/L 98-107 ttcr=903) CO2 (BEAKER) (test 21 meq/L 22-29 smfx=827) BLOOD UREA NITROGEN 14 mg/dL 7-21 (BEAKER) (test roub=737) CREATININE (BEAKER) (test 0.83 mg/dL 0.57-1.25 rtwc=733) GLUCOSE RANDOM (BEAKER) 160 mg/dL 70-105 (test noyi=282) CALCIUM (BEAKER) (test 9.0 mg/dL 8.4-10.2 hvla=291) EGFR (BEAKER) (test 74 mL/min/1.73 sq m ESTIMATED GFR IS NOT ajcc=5551) ACCURATE CREATININE CLEARANCE IN PREDICTING GLOMERULAR FILTRATION RATE. ESTIMATED GFR IS NOT APPLICABLE FOR DIALYSIS PATIENTS. CT, [id number] 09:48:00FINAL REPORT CT Abdomen And Pelvis with [...] Melony Henriquez MDReport Verified Date/Time: 09/20/2018 09:48:51 [facility], BONE DENSITY [id number] 13:22 :00Reason for Exam:->crohn's disease of both [...] for bone mineral density as provided by marine electronics technician is 0.023 g/cm2 for lumbar spine and [...] the next bone mineral density study. Signed: rAt [place] MDReport Verified Date/Time: 2018 13:22:29 01: 22 [id number] 07:02:00 Test Item Value Reference Range Comments PHOSPHORUS (BEAKER) (test zkpy=188) 2.9 mg/dL 2.3-4.7 [id number] 07:02:00 Test Item Value Reference Range Comments MAGNESIUM (BEAKER) (test xjpf=456) 1.9 mg/dL 1.6-2.6 BASIC METABOLIC [id number] 07:02:00 Test Item Value Reference Range Comments SODIUM (BEAKER) (test 139 meq/L 136-145 amzz=884) POTASSIUM (BEAKER) (test 4.0 meq/L 3.5-5.1 dlwk=963) CHLORIDE (BEAKER) (test 108 meq/L 98-107 bsss=043) CO2 (BEAKER) (test 26 meq/L 22-29 cmmk=676) BLOOD UREA NITROGEN 6 mg/dL 7-21 (BEAKER) (test spjg=842) CREATININE (BEAKER) (test 0.68 mg/dL 0.57-1.25 bfgy=282) GLUCOSE RANDOM (BEAKER) 87 mg/dL 70-105 (test svoe=884) CALCIUM (BEAKER) (test 8.5 mg/dL 8.4-10.2 usfl=013) EGFR (BEAKER) (test 93 mL/min/1.73 sq m ESTIMATED GFR IS NOT hvdz=3303) ACCURATE CREATININE CLEARANCE IN PREDICTING GLOMERULAR FILTRATION RATE. ESTIMATED GFR IS NOT APPLICABLE FOR DIALYSIS PATIENTS. CBC (HEMOGRAM ONLY)2018-08-23 06:39:00 Test Item Value Reference Range Comments WHITE BLOOD CELL COUNT (BEAKER) (test gtoz=545) 5.5 K/ L 3.5-10.5 RED BLOOD CELL COUNT (BEAKER) (test nalu=661) 3.31 M/ L 3.93-5.22 HEMOGLOBIN (BEAKER) (test kynm=190) 10.4 GM/DL 11.2-15.7 HEMATOCRIT (BEAKER) (test wamg=742) 34.9 % 34.1-44.9 MEAN CORPUSCULAR VOLUME (BEAKER) (test jiwc=555) 105.4 fL 79.4-94.8 MEAN CORPUSCULAR HEMOGLOBIN (BEAKER) (test 31.4 pg 25.6-32.2 afox=441) MEAN CORPUSCULAR HEMOGLOBIN CONC (BEAKER) (test 29.8 GM/DL 32.2-35.5 hquu=036) RED CELL DISTRIBUTION WIDTH (BEAKER) (test 15.4 % 11.7-14.4 knqx=995) PLATELET COUNT (BEAKER) (test chau=849) 185 K/CU MM 150-450 MEAN PLATELET VOLUME (BEAKER) (test dgwf=715) 8.9 fL 9.4-12.3 NUCLEATED RED BLOOD CELLS (BEAKER) (test 0 /100 WBC 0-0 rlzz=149) TISSUE [id number] 13:47:00Surgical Pathology Report Case: [id number] Authorizing Provider: Jani Alejandro MD Collected: 08/20/2018 1003 Ordering Location: [facility] PERIOPERATIVE Received: 08/20/2018 1118 SERVICES Pathologist: Linda Mullen MD Specimen: Large Intestine, Colon - Right/Ascending , RIGHT COLON AND SMALL BOWEL A. COLON, RIGHT/ASCENDING, RIGHT HEMICOLECTOMY: - CHRONIC ACTIVE ENTERITIS COMPATIBLE WITH CROHN'S DISEASE (SEE COMMENT) - NEGATIVE FOR GRANULOMAS (OR) VIRAL CYTOPATHIC CHANGES - NEGATIVE FOR DYSPLASIA (OR) MALIGNANCY - MARGINS, UNREMARKABLE Signing Pathologist Direct Phone Line: [phone] signed by Linda Mullen MD on 08/22/2018 [...] cytopathic changes are seen.IDC: Dr. Leslie Carballo conckourtney.[id number]'s disease of small intestine without complication Right [...] folding and no masses or lesions identified. Physician Chief Of Pathology sections are submitted in 10 cassettes as follows.Ink code: Blue-one marginBlack-margin closest to anastomotic siteSection code: A1 - business services sales representative sections of both margins, differentially inked per the ink code A2-A5 - entire sections of ulcerative areaA6 - entire sections of hemorrhagic mucosal areaA7-A10 - business services sales representative sections of mucosaFR/ewPerformed.[id number] 06:10:00 Test Item Value Reference Range Comments PHOSPHORUS (BEAKER) (test vvgk=493) 2.3 mg/dL 2.3-4.7 [id number] 06:10:00 Test Item Value Reference Range Comments MAGNESIUM (BEAKER) (test yxwx=804) 1.7 mg/dL 1.6-2.6 BASIC METABOLIC [id number] 06:10:00 Test Item Value Reference Range Comments SODIUM (BEAKER) (test 137 meq/L 136-145 lwjw=335) POTASSIUM (BEAKER) (test 3.8 meq/L 3.5-5.1 aiyn=256) CHLORIDE (BEAKER) (test 105 meq/L 98-107 rmej=757) CO2 (BEAKER) (test 25 meq/L 22-29 lmva=191) BLOOD UREA NITROGEN 5 mg/dL 7-21 (BEAKER) (test njih=678) CREATININE (BEAKER) (test 0.73 mg/dL 0.57-1.25 pdfi=829) GLUCOSE RANDOM (BEAKER) 105 mg/dL 70-105 (test zayn=348) CALCIUM (BEAKER) (test 8.6 mg/dL 8.4-10.2 wbsn=314) EGFR (BEAKER) (test 86 mL/min/1.73 sq m ESTIMATED GFR IS NOT phph=3548) ACCURATE CREATININE CLEARANCE IN PREDICTING GLOMERULAR FILTRATION RATE. ESTIMATED GFR IS NOT APPLICABLE FOR DIALYSIS PATIENTS. CBC (HEMOGRAM ONLY)2018-08-22 05:31:00 Test Item Value Reference Range Comments WHITE BLOOD CELL COUNT (BEAKER) (test mdrk=614) 7.8 K/ L 3.5-10.5 RED BLOOD CELL COUNT (BEAKER) (test satn=726) 3.65 M/ L 3.93-5.22 HEMOGLOBIN (BEAKER) (test ilii=295) 11.5 GM/DL 11.2-15.7 HEMATOCRIT (BEAKER) (test ursr=073) 37.1 % 34.1-44.9 MEAN CORPUSCULAR VOLUME (BEAKER) (test mjjz=304) 101.6 fL 79.4-94.8 MEAN CORPUSCULAR HEMOGLOBIN (BEAKER) (test 31.5 pg 25.6-32.2 uspd=693) MEAN CORPUSCULAR HEMOGLOBIN CONC (BEAKER) (test 31.0 GM/DL 32.2-35.5 lkfs=190) RED CELL DISTRIBUTION WIDTH (BEAKER) (test 15.2 % 11.7-14.4 orhx=510) PLATELET COUNT (BEAKER) (test necq=318) 215 K/CU MM 150-450 MEAN PLATELET VOLUME (BEAKER) (test nhxb=969) 8.8 fL 9.4-12.3 NUCLEATED RED BLOOD CELLS (BEAKER) (test 0 /100 WBC 0-0 rxrr=164) [id number] 03:34:00 Test Item Value Reference Range Comments PHOSPHORUS (BEAKER) (test hfhh=117) 2.5 mg/dL 2.3-4.7 [id number] 03:34:00 Test Item Value Reference Range Comments MAGNESIUM (BEAKER) (test zgvj=343) 1.9 mg/dL 1.6-2.6 BASIC METABOLIC [id number] 03:34:00 Test Item Value Reference Range Comments SODIUM (BEAKER) (test 138 meq/L 136-145 rcwi=731) POTASSIUM (BEAKER) (test 3.9 meq/L 3.5-5.1 nrye=618) CHLORIDE (BEAKER) (test 108 meq/L 98-107 holk=175) CO2 (BEAKER) (test 25 meq/L 22-29 fltq=171) BLOOD UREA NITROGEN 5 mg/dL 7-21 (BEAKER) (test wvjq=578) CREATININE (BEAKER) (test 0.67 mg/dL 0.57-1.25 urtb=997) GLUCOSE RANDOM (BEAKER) 122 mg/dL 70-105 (test clll=466) CALCIUM (BEAKER) (test 8.4 mg/dL 8.4-10.2 deow=428) EGFR (BEAKER) (test 95 mL/min/1.73 sq m ESTIMATED GFR IS NOT pvcx=6012) ACCURATE CREATININE CLEARANCE IN PREDICTING GLOMERULAR FILTRATION RATE. ESTIMATED GFR IS NOT APPLICABLE FOR DIALYSIS PATIENTS. CBC (HEMOGRAM ONLY)2018-08-21 03:17:00 Test Item Value Reference Range Comments WHITE BLOOD CELL COUNT (BEAKER) (test ftbh=201) 7.8 K/ L 3.5-10.5 RED BLOOD CELL COUNT (BEAKER) (test wjki=635) 3.65 M/ L 3.93-5.22 HEMOGLOBIN (BEAKER) (test odly=877) 11.4 GM/DL 11.2-15.7 HEMATOCRIT (BEAKER) (test scpz=401) 36.3 % 34.1-44.9 MEAN CORPUSCULAR VOLUME (BEAKER) (test vyyi=028) 99.5 fL 79.4-94.8 MEAN CORPUSCULAR HEMOGLOBIN (BEAKER) (test 31.2 pg 25.6-32.2 kffg=041) MEAN CORPUSCULAR HEMOGLOBIN CONC (BEAKER) (test 31.4 GM/DL 32.2-35.5 qjcu=590) RED CELL DISTRIBUTION WIDTH (BEAKER) (test 14.9 % 11.7-14.4 nfff=571) PLATELET COUNT (BEAKER) (test ogcw=678) 204 K/CU MM 150-450 MEAN PLATELET VOLUME (BEAKER) (test bxnn=665) 8.5 fL 9.4-12.3 NUCLEATED RED BLOOD CELLS (BEAKER) (test 0 /100 WBC 0-0 qvoa=326) POCT-GLUCOSE [id number] 11:42:00 Test Item Value Reference Range Comments POC-GLUCOSE METER (BEAKER) 129 mg/dL 70-110 TESTED AT [address] (test bsnz=5993) [facility] [address] POCT-GLUCOSE [id number] 06:28:00 Test Item Value Reference Range Comments POC-GLUCOSE METER (BEAKER) 102 mg/dL 70-110 TESTED AT [address] (test dcei=7403) [facility] [address] [address], [id number] 15:41:00FINAL REPORT CT abdomen and pelvis with [...] MDReport Verified Date/Time: 08/17/2018 15:41:17 Reading Location: [facility] Diagnostic Imaging Reading Room - [place] [address] STOOL CULTURE + SHIGA [id number] 15:37:00 Test Item Value Reference Range Comments CULTURE (BEAKER) (test No Salmonella, Shigella or grgl=0598) Campylobacter isolated POCT-GLUCOSE [id number] 08:25:00 Test Item Value Reference Range Comments POC-GLUCOSE METER (BEAKER) 197 mg/dL 70-[address] [facility] [address] [facility] (test mmjk=0660) [facility] [address] [id number] 05:59:00 Test Item Value Reference Range Comments PHOSPHORUS (BEAKER) (test oqep=711) 3.6 mg/dL 2.3-4.7 [id number] 05:59:00 Test Item Value Reference Range Comments MAGNESIUM (BEAKER) (test frtt=344) 2.3 mg/dL 1.6-2.6 BASIC METABOLIC [id number] 05:59:00 Test Item Value Reference Range Comments SODIUM (BEAKER) (test 137 meq/L 136-145 rttm=756) POTASSIUM (BEAKER) (test 4.7 meq/L 3.5-5.1 rymb=989) CHLORIDE (BEAKER) (test 104 meq/L 98-107 rjbo=973) CO2 (BEAKER) (test 24 meq/L 22-29 ivyn=338) BLOOD UREA NITROGEN 4 mg/dL 7-21 (BEAKER) (test xerc=009) CREATININE (BEAKER) (test 0.74 mg/dL 0.57-1.25 unfv=720) GLUCOSE RANDOM (BEAKER) 144 mg/dL 70-105 (test iksj=072) CALCIUM (BEAKER) (test 9.0 mg/dL 8.4-10.2 ovlh=011) EGFR (BEAKER) (test 84 mL/min/1.73 sq m ESTIMATED GFR IS NOT gxwv=7159) ACCURATE CREATININE CLEARANCE IN PREDICTING GLOMERULAR FILTRATION RATE. ESTIMATED GFR IS NOT APPLICABLE FOR DIALYSIS PATIENTS. HEPATIC FUNCTION [id number] 05:59:00 Test Item Value Reference Range Comments TOTAL PROTEIN (BEAKER) (test fvwi=952) 6.3 gm/dL 6.0-8.3 ALBUMIN (BEAKER) (test wllg=5616) 3.9 g/dL 3.5-5.0 BILIRUBIN TOTAL (BEAKER) (test ikyp=395) 0.3 mg/dL 0.2-1.2 BILIRUBIN DIRECT (BEAKER) (test poky=393) 0.1 mg/dL 0.1-0.5 ALKALINE PHOSPHATASE (BEAKER) (test tico=318) 68 U/L 40-150 AST (SGOT) (BEAKER) (test jxrm=347) 23 U/L 5-34 ALT (SGPT) (BEAKER) (test alen=584) 41 U/L 6-55 POCT-GLUCOSE [id number] 21:05:00 Test Item Value Reference Range Comments POC-GLUCOSE METER (BEAKER) 148 mg/dL 70-[address] [facility] [address] [facility] (test mmdl=0008) [facility] [address] C. DIFFICILE GDH [id number] 15:59:00 Test Item Value Reference Range Comments CDT TOXIN (test Negative Negative ddnr=[id number]) CDT GDH ANTIGEN (test Negative Negative No indication of Clostridium mllf=[id number]) difficile infection and no colonization. Discontinue enteric isolation and therapy. Testing performed by [employer] Rapid Cassette Assay. For GDH, published sensitivity of the assay is 98.7% compared to cytotoxicity testing. For Toxin AB, published sensitivity is 87.8% and specificity 99.4% compared to cytotoxicity testing.Verification of kit performance was done by the [facility] Microbiology Lab prior to clinical use.SHIGA TOXIN [id number] 14:22:00 Test Item Value Reference Range Comments SHIGA TOXIN 1 (BEAKER) (test ojwq=5432) Not detected Not detected SHIGA TOXIN 2 (BEAKER) (test begl=2038) Not detected Not detected POCT-GLUCOSE [id number] 13:13:00 Test Item Value Reference Range Comments POC-GLUCOSE METER (BEAKER) 119 mg/dL 70-[address] [facility] [address] [place] [address] (test bllg=7350) [place] [id number] STOOL PATH [id number] 10:03:00 Test Item Value Reference Range Comments PATHOGEN EXAM CHARGED (BEAKER) (test hwpk=3682) Done POCT-GLUCOSE [id number] 09:13:00 Test Item Value Reference Range Comments POC-GLUCOSE METER (BEAKER) 111 mg/dL 70-110 TESTED AT [address] (test ohor=4130) [facility] [address] [id number] 06:09:00 Test Item Value Reference Range Comments PREALBUMIN (BEAKER) (test axyz=931) 36 mg/dL 14-45 CBC W/PLT COUNT & AUTO [id number] 06:02:00 Test Item Value Reference Range Comments WHITE BLOOD CELL COUNT (BEAKER) (test cmla=889) 8.2 K/ L 3.5-10.5 RED BLOOD CELL COUNT (BEAKER) (test xzbd=139) 4.02 M/ L 3.93-5.22 HEMOGLOBIN (BEAKER) (test umpl=888) 12.5 GM/DL 11.2-15.7 HEMATOCRIT (BEAKER) (test nfgu=137) 39.7 % 34.1-44.9 MEAN CORPUSCULAR VOLUME (BEAKER) (test eady=727) 98.8 fL 79.4-94.8 MEAN CORPUSCULAR HEMOGLOBIN (BEAKER) (test 31.1 pg 25.6-32.2 lcne=661) MEAN CORPUSCULAR HEMOGLOBIN CONC (BEAKER) (test 31.5 GM/DL 32.2-35.5 brvm=265) RED CELL DISTRIBUTION WIDTH (BEAKER) (test 14.8 % 11.7-14.4 stea=482) PLATELET COUNT (BEAKER) (test zbfn=452) 322 K/CU MM 150-450 MEAN PLATELET VOLUME (BEAKER) (test lybp=581) 8.6 fL 9.4-12.3 NUCLEATED RED BLOOD CELLS (BEAKER) (test 0 /100 WBC 0-0 wovu=983) NEUTROPHILS RELATIVE PERCENT (BEAKER) (test 83 % ihmk=164) LYMPHOCYTES RELATIVE PERCENT (BEAKER) (test 14 % rfpn=046) MONOCYTES RELATIVE PERCENT (BEAKER) (test 2 % pljc=303) EOSINOPHILS RELATIVE PERCENT (BEAKER) (test 0 % gwgo=251) BASOPHILS RELATIVE PERCENT (BEAKER) (test 0 % xqqg=983) NEUTROPHILS ABSOLUTE COUNT (BEAKER) (test 6.83 K/ L 1.56-6.13 okii=241) LYMPHOCYTES ABSOLUTE COUNT (BEAKER) (test 1.16 K/ L 1.18-3.74 yulz=604) MONOCYTES ABSOLUTE COUNT (BEAKER) (test 0.16 K/ L 0.24-0.36 uakk=387) EOSINOPHILS ABSOLUTE COUNT (BEAKER) (test 0.00 K/ L 0.04-0.36 ivxx=851) BASOPHILS ABSOLUTE COUNT (BEAKER) (test 0.01 K/ L 0.01-0.08 ccxf=078) IMMATURE GRANULOCYTES-RELATIVE PERCENT (BEAKER) 1 % 0-1 (test inhc=3067) [id number] 05:52:00 Test Item Value Reference Range Comments PHOSPHORUS (BEAKER) (test nwwn=299) 4.0 mg/dL 2.3-4.7 [id number] 05:52:00 Test Item Value Reference Range Comments MAGNESIUM (BEAKER) (test zbrq=605) 2.3 mg/dL 1.6-2.6 BASIC METABOLIC [id number] 05:52:00 Test Item Value Reference Range Comments SODIUM (BEAKER) (test 139 meq/L 136-145 hfba=270) POTASSIUM (BEAKER) (test 4.4 meq/L 3.5-5.1 zlwb=258) CHLORIDE (BEAKER) (test 104 meq/L 98-107 fzmm=993) CO2 (BEAKER) (test 25 meq/L 22-29 zpzz=513) BLOOD UREA NITROGEN 5 mg/dL 7-21 (BEAKER) (test kcea=104) CREATININE (BEAKER) (test 0.78 mg/dL 0.57-1.25 qqkd=495) GLUCOSE RANDOM (BEAKER) 172 mg/dL 70-105 (test ktzb=389) CALCIUM (BEAKER) (test 9.0 mg/dL 8.4-10.2 zddo=675) EGFR (BEAKER) (test 80 mL/min/1.73 sq m ESTIMATED GFR IS NOT xcee=0618) ACCURATE CREATININE CLEARANCE IN PREDICTING GLOMERULAR FILTRATION RATE. ESTIMATED GFR IS NOT APPLICABLE FOR DIALYSIS PATIENTS. HEPATIC FUNCTION [id number] 05:52:00 Test Item Value Reference Range Comments TOTAL PROTEIN (BEAKER) (test yvau=531) 6.4 gm/dL 6.0-8.3 ALBUMIN (BEAKER) (test efvj=5838) 3.9 g/dL 3.5-5.0 BILIRUBIN TOTAL (BEAKER) (test mrgy=110) 0.2 mg/dL 0.2-1.2 BILIRUBIN DIRECT (BEAKER) (test jgch=374) 0.1 mg/dL 0.1-0.5 ALKALINE PHOSPHATASE (BEAKER) (test gfvc=229) 68 U/L 40-150 AST (SGOT) (BEAKER) (test itoi=570) 12 U/L 5-34 ALT (SGPT) (BEAKER) (test nihd=043) 29 U/L 6-55 C-REACTIVE [id number] 05:52:00 Test Item Value Reference Range Comments C-REACTIVE PROTEIN (BEAKER) (test xrat=191) 0.22 mg/dL 0.00-0.50 POCT-GLUCOSE [id number] 23:39:00 Test Item Value Reference Range Comments POC-GLUCOSE METER (BEAKER) 122 mg/dL 70-[address] [facility] [address] [place] [address] (test kddg=9923) [facility] [address] [address], [id number] 04:05:00FINAL REPORT CLINICAL HISTORY: Acute abdominal pain, [...] MDReport Verified Date/Time: 07/21/2018 04:05:05 Reading Location: [address] Reading Room [id number] 22:00:00 Test Item Value Reference Range Comments LIPASE (BEAKER) (test bnty=999) 12 U/L 8-78 COMPREHENSIVE METABOLIC [id number] 22:00:00 Test Item Value Reference Range Comments TOTAL PROTEIN (BEAKER) 5.6 gm/dL 6.0-8.3 (test nlzo=087) ALBUMIN (BEAKER) (test 3.5 g/dL 3.5-5.0 fdhg=8379) ALKALINE PHOSPHATASE 54 U/L 40-150 (BEAKER) (test nliz=955) BILIRUBIN TOTAL (BEAKER) 0.2 mg/dL 0.2-1.2 (test kjxs=687) SODIUM (BEAKER) (test 143 meq/L 136-145 cxxy=893) POTASSIUM (BEAKER) (test 3.9 meq/L 3.5-5.1 ugoi=936) CHLORIDE (BEAKER) (test 106 meq/L 98-107 dfsu=798) CO2 (BEAKER) (test 27 meq/L 22-29 inva=028) BLOOD UREA NITROGEN 12 mg/dL 7-21 (BEAKER) (test igpw=143) CREATININE (BEAKER) (test 0.76 mg/dL 0.57-1.25 dvbx=822) GLUCOSE RANDOM (BEAKER) 84 mg/dL 70-105 (test nyjz=126) CALCIUM (BEAKER) (test 8.5 mg/dL 8.4-10.2 xxmp=654) AST (SGOT) (BEAKER) (test 13 U/L 5-34 pcqb=397) ALT (SGPT) (BEAKER) (test 27 U/L 6-55 eboo=767) EGFR (BEAKER) (test 82 mL/min/1.73 sq m ESTIMATED GFR IS NOT ufky=5252) ACCURATE CREATININE CLEARANCE IN PREDICTING GLOMERULAR FILTRATION RATE. ESTIMATED GFR IS NOT APPLICABLE FOR DIALYSIS PATIENTS. [id number] 21:55:00 Test Item Value Reference Range Comments PARTIAL THROMBOPLASTIN TIME (BEAKER) (test 24.6 seconds 22.5-36.0 hcia=780) PROTHROMBIN [id number] 21:53:00 Test Item Value Reference Range Comments PROTIME (BEAKER) (test jgyo=945) 13.2 seconds 11.7-14.7 INR (BEAKER) (test ngir=510) 1.0 <=5.9 RECOMMENDED COUMADIN/WARFARIN INR THERAPY RANGESSTANDARD DOSE: 2.0 - 3.0 Includes: PROPHYLAXIS forvenous thrombosis, systemic embolization; TREATMENT for venous thrombosis and/or pulmonary embolus.HIGH RISK: Target INR is 2.5-3.5 for patients with mechanical heart valves.CBC W/PLT COUNT & AUTO [id number] 21:44:00 Test Item Value Reference Range Comments WHITE BLOOD CELL COUNT (BEAKER) (test hmeu=521) 10.8 K/ L 3.5-10.5 RED BLOOD CELL COUNT (BEAKER) (test srvi=775) 3.58 M/ L 3.93-5.22 HEMOGLOBIN (BEAKER) (test quls=228) 11.1 GM/DL 11.2-15.7 HEMATOCRIT (BEAKER) (test nugh=297) 35.1 % 34.1-44.9 MEAN CORPUSCULAR VOLUME (BEAKER) (test xpux=921) 98.0 fL 79.4-94.8 MEAN CORPUSCULAR HEMOGLOBIN (BEAKER) (test 31.0 pg 25.6-32.2 jgyb=894) MEAN CORPUSCULAR HEMOGLOBIN CONC (BEAKER) (test 31.6 GM/DL 32.2-35.5 jamq=950) RED CELL DISTRIBUTION WIDTH (BEAKER) (test 15.1 % 11.7-14.4 wnkl=669) PLATELET COUNT (BEAKER) (test ikfa=368) 245 K/CU MM 150-450 MEAN PLATELET VOLUME (BEAKER) (test jkas=691) 8.6 fL 9.4-12.3 NUCLEATED RED BLOOD CELLS (BEAKER) (test 0 /100 WBC 0-0 scmd=389) NEUTROPHILS RELATIVE PERCENT (BEAKER) (test 73 % juym=499) LYMPHOCYTES RELATIVE PERCENT (BEAKER) (test 20 % blwl=377) MONOCYTES RELATIVE PERCENT (BEAKER) (test 6 % nmuy=658) EOSINOPHILS RELATIVE PERCENT (BEAKER) (test 0 % mmsa=854) BASOPHILS RELATIVE PERCENT (BEAKER) (test 0 % thdj=374) NEUTROPHILS ABSOLUTE COUNT (BEAKER) (test 7.89 K/ L 1.56-6.13 anuc=889) LYMPHOCYTES ABSOLUTE COUNT (BEAKER) (test 2.13 K/ L 1.18-3.74 ooir=773) MONOCYTES ABSOLUTE COUNT (BEAKER) (test 0.65 K/ L 0.24-0.36 ipmv=937) EOSINOPHILS ABSOLUTE COUNT (BEAKER) (test 0.01 K/ L 0.04-0.36 euaz=676) BASOPHILS ABSOLUTE COUNT (BEAKER) (test 0.01 K/ L 0.01-0.08 cpgd=148) IMMATURE GRANULOCYTES-RELATIVE PERCENT (BEAKER) 1 % 0-1 (test amwe=1332) TISSUE [id number] 09:23:00Surgical Pathology Report Case: [id number] Authorizing Provider: King Huynh MD Collected: 07/11/2018 0924 Ordering Location: [address] Received: 07/11/2018 1421 Service Pathologist: Linda [...] AND COMMENT) Signing Pathologist Direct Phone Line: [phone] signed by Linda Mullen MD on 07/12/2018 at 9:23 AMPatient's history of Crohn's disease is noted per Epic note dated 07/10/18. The current sampling shows no significant active or chronic colitis. This may represent complete histologic resolution following treatment. Clinical and endoscopic correlation is recommended.[id number] abdominal pain A. Random colon biopsy. B. [...] noted. No dysplasia or carcinoma is present.BLOOD [id number] 20:01:00 Test Item Value Reference Range Comments CULTURE (BEAKER) (test mdyh=7947) No growth in 5 days BLOOD [id number] 20:01:00 Test Item Value Reference Range Comments CULTURE (BEAKER) (test mnum=8487) No growth in 5 days BASIC METABOLIC [id number] 04:55:00 Test Item Value Reference Range Comments SODIUM (BEAKER) (test 145 meq/L 136-145 elsm=891) POTASSIUM (BEAKER) (test 4.0 meq/L 3.5-5.1 jcsp=587) CHLORIDE (BEAKER) (test 111 meq/L 98-107 fodk=512) CO2 (BEAKER) (test 27 meq/L 22-29 deif=512) BLOOD UREA NITROGEN 2 mg/dL 7-21 (BEAKER) (test xxro=377) CREATININE (BEAKER) (test 0.68 mg/dL 0.57-1.25 ogoc=711) GLUCOSE RANDOM (BEAKER) 100 mg/dL 70-105 (test hyez=175) CALCIUM (BEAKER) (test 9.0 mg/dL 8.4-10.2 fooz=122) EGFR (BEAKER) (test 93 mL/min/1.73 sq m ESTIMATED GFR IS NOT eyhr=4884) ACCURATE CREATININE CLEARANCE IN PREDICTING GLOMERULAR FILTRATION RATE. ESTIMATED GFR IS NOT APPLICABLE FOR DIALYSIS PATIENTS. CBC W/PLT COUNT & AUTO [id number] 04:37:00 Test Item Value Reference Range Comments WHITE BLOOD CELL COUNT (BEAKER) (test qkao=850) 6.3 K/ L 3.5-10.5 RED BLOOD CELL COUNT (BEAKER) (test kkam=613) 3.92 M/ L 3.93-5.22 HEMOGLOBIN (BEAKER) (test vort=199) 12.0 GM/DL 11.2-15.7 HEMATOCRIT (BEAKER) (test jnws=532) 38.3 % 34.1-44.9 MEAN CORPUSCULAR VOLUME (BEAKER) (test rkxf=679) 97.7 fL 79.4-94.8 MEAN CORPUSCULAR HEMOGLOBIN (BEAKER) (test 30.6 pg 25.6-32.2 evof=777) MEAN CORPUSCULAR HEMOGLOBIN CONC (BEAKER) (test 31.3 GM/DL 32.2-35.5 vegy=269) RED CELL DISTRIBUTION WIDTH (BEAKER) (test 13.5 % 11.7-14.4 byzc=717) PLATELET COUNT (BEAKER) (test rwnj=110) 220 K/CU MM 150-450 MEAN PLATELET VOLUME (BEAKER) (test ahoj=677) 9.6 fL 9.4-12.3 NUCLEATED RED BLOOD CELLS (BEAKER) (test 0 /100 WBC 0-0 bqlt=428) NEUTROPHILS RELATIVE PERCENT (BEAKER) (test 76 % ahuq=091) LYMPHOCYTES RELATIVE PERCENT (BEAKER) (test 20 % vbsb=937) MONOCYTES RELATIVE PERCENT (BEAKER) (test 3 % ebnb=993) EOSINOPHILS RELATIVE PERCENT (BEAKER) (test 0 % yxpi=055) BASOPHILS RELATIVE PERCENT (BEAKER) (test 0 % gaeu=781) NEUTROPHILS ABSOLUTE COUNT (BEAKER) (test 4.80 K/ L 1.56-6.13 chxs=608) LYMPHOCYTES ABSOLUTE COUNT (BEAKER) (test 1.26 K/ L 1.18-3.74 ahjr=724) MONOCYTES ABSOLUTE COUNT (BEAKER) (test 0.20 K/ L 0.24-0.36 pcex=629) EOSINOPHILS ABSOLUTE COUNT (BEAKER) (test 0.00 K/ L 0.04-0.36 srzw=122) BASOPHILS ABSOLUTE COUNT (BEAKER) (test 0.01 K/ L 0.01-0.08 xptq=772) IMMATURE GRANULOCYTES-RELATIVE PERCENT (BEAKER) 1 % 0-1 (test idnb=1927) BASIC METABOLIC [id number] 06:15:00 Test Item Value Reference Range Comments SODIUM (BEAKER) (test 144 meq/L 136-145 zbyr=900) POTASSIUM (BEAKER) (test 4.3 meq/L 3.5-5.1 Specimen slightly unzj=945) hemolyzed CHLORIDE (BEAKER) (test 113 meq/L 98-107 eiic=436) CO2 (BEAKER) (test 24 meq/L 22-29 fklm=984) BLOOD UREA NITROGEN 3 mg/dL 7-21 (BEAKER) (test ugqy=435) CREATININE (BEAKER) (test 0.72 mg/dL 0.57-1.25 Specimen slightly pbkn=231) hemolyzed GLUCOSE RANDOM (BEAKER) 138 mg/dL 70-105 (test jhyr=161) CALCIUM (BEAKER) (test 9.3 mg/dL 8.4-10.2 isrx=413) EGFR (BEAKER) (test 87 mL/min/1.73 sq m ESTIMATED GFR IS NOT nqlt=9822) ACCURATE CREATININE CLEARANCE IN PREDICTING GLOMERULAR FILTRATION RATE. ESTIMATED GFR IS NOT APPLICABLE FOR DIALYSIS PATIENTS. CBC W/PLT COUNT & AUTO [id number] 06:06:00 Test Item Value Reference Range Comments WHITE BLOOD CELL COUNT (BEAKER) (test hsyc=699) 7.5 K/ L 3.5-10.5 RED BLOOD CELL COUNT (BEAKER) (test grbw=322) 4.07 M/ L 3.93-5.22 HEMOGLOBIN (BEAKER) (test enod=191) 12.9 GM/DL 11.2-15.7 HEMATOCRIT (BEAKER) (test bjks=042) 40.3 % 34.1-44.9 MEAN CORPUSCULAR VOLUME (BEAKER) (test yzen=724) 99.0 fL 79.4-94.8 MEAN CORPUSCULAR HEMOGLOBIN (BEAKER) (test 31.7 pg 25.6-32.2 whdn=438) MEAN CORPUSCULAR HEMOGLOBIN CONC (BEAKER) (test 32.0 GM/DL 32.2-35.5 agnr=653) RED CELL DISTRIBUTION WIDTH (BEAKER) (test 13.3 % 11.7-14.4 oktv=363) PLATELET COUNT (BEAKER) (test vekv=883) 191 K/CU MM 150-450 MEAN PLATELET VOLUME (BEAKER) (test cqks=065) 9.9 fL 9.4-12.3 NUCLEATED RED BLOOD CELLS (BEAKER) (test 0 /100 WBC 0-0 rqbr=661) NEUTROPHILS RELATIVE PERCENT (BEAKER) (test 70 % wbex=623) LYMPHOCYTES RELATIVE PERCENT (BEAKER) (test 24 % ncgx=533) MONOCYTES RELATIVE PERCENT (BEAKER) (test 5 % nhen=188) EOSINOPHILS RELATIVE PERCENT (BEAKER) (test 0 % iczc=682) BASOPHILS RELATIVE PERCENT (BEAKER) (test 0 % oqaj=347) NEUTROPHILS ABSOLUTE COUNT (BEAKER) (test 5.25 K/ L 1.56-6.13 topu=442) LYMPHOCYTES ABSOLUTE COUNT (BEAKER) (test 1.83 K/ L 1.18-3.74 sgee=569) MONOCYTES ABSOLUTE COUNT (BEAKER) (test 0.37 K/ L 0.24-0.36 twlz=744) EOSINOPHILS ABSOLUTE COUNT (BEAKER) (test 0.02 K/ L 0.04-0.36 xqmo=467) BASOPHILS ABSOLUTE COUNT (BEAKER) (test 0.01 K/ L 0.01-0.08 azgn=914) IMMATURE GRANULOCYTES-RELATIVE PERCENT (BEAKER) 0 % 0-1 (test zzng=0137) STOOL CULTURE + SHIGA [id number] 12:15:00 Test Item Value Reference Range Comments CULTURE (BEAKER) (test No Salmonella, Shigella or mqgv=8726) Campylobacter isolated BASIC METABOLIC [id number] 07:08:00 Test Item Value Reference Range Comments SODIUM (BEAKER) (test 143 meq/L 136-145 ovhe=075) POTASSIUM (BEAKER) (test 4.2 meq/L 3.5-5.1 gkdm=646) CHLORIDE (BEAKER) (test 111 meq/L 98-107 imcf=456) CO2 (BEAKER) (test 25 meq/L 22-29 qtey=390) BLOOD UREA NITROGEN 3 mg/dL 7-21 (BEAKER) (test hgzx=552) CREATININE (BEAKER) (test 0.67 mg/dL 0.57-1.25 lkeo=693) GLUCOSE RANDOM (BEAKER) 106 mg/dL 70-105 (test cqrj=011) CALCIUM (BEAKER) (test 9.2 mg/dL 8.4-10.2 mpae=221) EGFR (BEAKER) (test 95 mL/min/1.73 sq m ESTIMATED GFR IS NOT rgbb=3814) ACCURATE CREATININE CLEARANCE IN PREDICTING GLOMERULAR FILTRATION RATE. ESTIMATED GFR IS NOT APPLICABLE FOR DIALYSIS PATIENTS. CBC W/PLT COUNT & AUTO [id number] 06:42:00 Test Item Value Reference Range Comments WHITE BLOOD CELL COUNT (BEAKER) (test dmdm=441) 6.2 K/ L 3.5-10.5 RED BLOOD CELL COUNT (BEAKER) (test iwva=848) 4.29 M/ L 3.93-5.22 HEMOGLOBIN (BEAKER) (test kdnf=727) 13.4 GM/DL 11.2-15.7 HEMATOCRIT (BEAKER) (test suvx=169) 41.1 % 34.1-44.9 MEAN CORPUSCULAR VOLUME (BEAKER) (test eyfk=387) 95.8 fL 79.4-94.8 MEAN CORPUSCULAR HEMOGLOBIN (BEAKER) (test 31.2 pg 25.6-32.2 yqgc=199) MEAN CORPUSCULAR HEMOGLOBIN CONC (BEAKER) (test 32.6 GM/DL 32.2-35.5 cbdl=161) RED CELL DISTRIBUTION WIDTH (BEAKER) (test 13.1 % 11.7-14.4 npba=944) PLATELET COUNT (BEAKER) (test ixvx=093) 232 K/CU MM 150-450 MEAN PLATELET VOLUME (BEAKER) (test zvvv=029) 9.0 fL 9.4-12.3 NUCLEATED RED BLOOD CELLS (BEAKER) (test 0 /100 WBC 0-0 txpv=007) NEUTROPHILS RELATIVE PERCENT (BEAKER) (test 67 % lger=476) LYMPHOCYTES RELATIVE PERCENT (BEAKER) (test 27 % sdfr=391) MONOCYTES RELATIVE PERCENT (BEAKER) (test 5 % roaw=927) EOSINOPHILS RELATIVE PERCENT (BEAKER) (test 0 % druu=671) BASOPHILS RELATIVE PERCENT (BEAKER) (test 0 % qtpi=455) NEUTROPHILS ABSOLUTE COUNT (BEAKER) (test 4.18 K/ L 1.56-6.13 odia=579) LYMPHOCYTES ABSOLUTE COUNT (BEAKER) (test 1.69 K/ L 1.18-3.74 hnkh=292) MONOCYTES ABSOLUTE COUNT (BEAKER) (test 0.29 K/ L 0.24-0.36 bgie=516) EOSINOPHILS ABSOLUTE COUNT (BEAKER) (test 0.01 K/ L 0.04-0.36 tvtk=544) BASOPHILS ABSOLUTE COUNT (BEAKER) (test 0.02 K/ L 0.01-0.08 adbq=650) IMMATURE GRANULOCYTES-RELATIVE PERCENT (BEAKER) 1 % 0-1 (test chgq=2048) CT, ABDOMEN - PELVIS, [id number] 14:17:00Reason for exam:-> Evaluation of small bowel [...] lesion demonstrated. Endplate degenerative change at L1-2 fkfA16-V0 noted. There is an implanted pump in the right lower quadrant subcutaneous fat with a lead going to the thecal sac terminating at the T11 level. IMPRESSION: Evidence of acute colitis of the sigmoid colon. No small bowel enteritis demonstrated. No stricture, fistula, or intramesenteric abscess demonstrated. Signed: Vicente Montero MDReport Verified Date/Time: 07/08/2018 14:17:31 Reading Location: [facility] [id number] Ortho Consult Reading Room [facility] METABOLIC [id number] 06:53:00 Test Item Value Reference Range Comments SODIUM (BEAKER) (test 137 meq/L 136-145 prul=056) POTASSIUM (BEAKER) (test 4.2 meq/L 3.5-5.1 ndud=229) CHLORIDE (BEAKER) (test 105 meq/L 98-107 uoas=438) CO2 (BEAKER) (test 23 meq/L 22-29 htvp=172) BLOOD UREA NITROGEN 3 mg/dL 7-21 (BEAKER) (test emdd=384) CREATININE (BEAKER) (test 0.75 mg/dL 0.57-1.25 agxl=341) GLUCOSE RANDOM (BEAKER) 85 mg/dL 70-105 (test dmhn=343) CALCIUM (BEAKER) (test 8.6 mg/dL 8.4-10.2 stce=991) EGFR (BEAKER) (test 83 mL/min/1.73 sq m ESTIMATED GFR IS NOT fwla=9644) ACCURATE CREATININE CLEARANCE IN PREDICTING GLOMERULAR FILTRATION RATE. ESTIMATED GFR IS NOT APPLICABLE FOR DIALYSIS PATIENTS. CBC W/PLT COUNT & AUTO [id number] 06:25:00 Test Item Value Reference Range Comments WHITE BLOOD CELL COUNT (BEAKER) (test fpsm=351) 5.3 K/ L 3.5-10.5 RED BLOOD CELL COUNT (BEAKER) (test yibn=652) 4.11 M/ L 3.93-5.22 HEMOGLOBIN (BEAKER) (test dyhd=549) 12.8 GM/DL 11.2-15.7 HEMATOCRIT (BEAKER) (test mhpa=318) 40.4 % 34.1-44.9 MEAN CORPUSCULAR VOLUME (BEAKER) (test orll=952) 98.3 fL 79.4-94.8 MEAN CORPUSCULAR HEMOGLOBIN (BEAKER) (test 31.1 pg 25.6-32.2 zwbn=815) MEAN CORPUSCULAR HEMOGLOBIN CONC (BEAKER) (test 31.7 GM/DL 32.2-35.5 yluu=676) RED CELL DISTRIBUTION WIDTH (BEAKER) (test 13.7 % 11.7-14.4 hwbv=935) PLATELET COUNT (BEAKER) (test izsh=241) 213 K/CU MM 150-450 MEAN PLATELET VOLUME (BEAKER) (test mrgx=138) 8.9 fL 9.4-12.3 NUCLEATED RED BLOOD CELLS (BEAKER) (test 0 /100 WBC 0-0 jiya=280) NEUTROPHILS RELATIVE PERCENT (BEAKER) (test 47 % mqak=432) LYMPHOCYTES RELATIVE PERCENT (BEAKER) (test 39 % ocxe=395) MONOCYTES RELATIVE PERCENT (BEAKER) (test 9 % lpfu=992) EOSINOPHILS RELATIVE PERCENT (BEAKER) (test 5 % amgn=642) BASOPHILS RELATIVE PERCENT (BEAKER) (test 0 % dvey=666) NEUTROPHILS ABSOLUTE COUNT (BEAKER) (test 2.48 K/ L 1.56-6.13 pkrp=319) LYMPHOCYTES ABSOLUTE COUNT (BEAKER) (test 2.04 K/ L 1.18-3.74 yykb=429) MONOCYTES ABSOLUTE COUNT (BEAKER) (test 0.45 K/ L 0.24-0.36 ievi=267) EOSINOPHILS ABSOLUTE COUNT (BEAKER) (test 0.26 K/ L 0.04-0.36 rbxe=265) BASOPHILS ABSOLUTE COUNT (BEAKER) (test 0.02 K/ L 0.01-0.08 gheo=287) IMMATURE GRANULOCYTES-RELATIVE PERCENT (BEAKER) 0 % 0-1 (test efry=1275) SHIGA TOXIN [id number] 13:53:00 Test Item Value Reference Range Comments SHIGA TOXIN 1 (BEAKER) (test swuh=1585) Not detected Not detected SHIGA TOXIN 2 (BEAKER) (test mrda=9883) Not detected Not detected C. DIFFICILE GDH [id number] 13:28:00 Test Item Value Reference Range Comments CDT TOXIN (test Negative Negative rnev=[id number]) CDT GDH ANTIGEN (test Negative Negative No indication of Clostridium oleb=[id number]) difficile infection and no colonization. Discontinue enteric isolation and therapy. Testing performed by [employer] Rapid Cassette Assay. For GDH, published sensitivity of the assay is 98.7% compared to cytotoxicity testing. For Toxin AB, published sensitivity is 87.8% and specificity 99.4% compared to cytotoxicity testing.Verification of kit performance was done by the [facility] Microbiology Lab prior to clinical use.STOOL PATH [id number] 10:17:00 Test Item Value Reference Range Comments PATHOGEN EXAM CHARGED (BEAKER) (test iuuv=6754) Done BASIC METABOLIC [id number] 05:17:00 Test Item Value Reference Range Comments SODIUM (BEAKER) (test 142 meq/L 136-145 ggtv=351) POTASSIUM (BEAKER) (test 4.3 meq/L 3.5-5.1 bavf=998) CHLORIDE (BEAKER) (test 110 meq/L 98-107 kzmw=404) CO2 (BEAKER) (test 25 meq/L 22-29 asre=005) BLOOD UREA NITROGEN 5 mg/dL 7-21 (BEAKER) (test ylnh=842) CREATININE (BEAKER) (test 0.78 mg/dL 0.57-1.25 kito=120) GLUCOSE RANDOM (BEAKER) 108 mg/dL 70-105 (test vyoi=968) CALCIUM (BEAKER) (test 8.9 mg/dL 8.4-10.2 wwrv=319) EGFR (BEAKER) (test 80 mL/min/1.73 sq m ESTIMATED GFR IS NOT fcqa=0604) ACCURATE CREATININE CLEARANCE IN PREDICTING GLOMERULAR FILTRATION RATE. ESTIMATED GFR IS NOT APPLICABLE FOR DIALYSIS PATIENTS. CBC W/PLT COUNT & AUTO [id number] 04:58:00 Test Item Value Reference Range Comments WHITE BLOOD CELL COUNT (BEAKER) (test rytg=582) 4.8 K/ L 3.5-10.5 RED BLOOD CELL COUNT (BEAKER) (test vcmk=546) 3.79 M/ L 3.93-5.22 HEMOGLOBIN (BEAKER) (test kusk=916) 11.8 GM/DL 11.2-15.7 HEMATOCRIT (BEAKER) (test baaf=469) 37.6 % 34.1-44.9 MEAN CORPUSCULAR VOLUME (BEAKER) (test icxn=566) 99.2 fL 79.4-94.8 MEAN CORPUSCULAR HEMOGLOBIN (BEAKER) (test 31.1 pg 25.6-32.2 dwpq=734) MEAN CORPUSCULAR HEMOGLOBIN CONC (BEAKER) (test 31.4 GM/DL 32.2-35.5 cddn=162) RED CELL DISTRIBUTION WIDTH (BEAKER) (test 14.5 % 11.7-14.4 ahcb=481) PLATELET COUNT (BEAKER) (test cqrk=500) 216 K/CU MM 150-450 MEAN PLATELET VOLUME (BEAKER) (test udqg=795) 9.3 fL 9.4-12.3 NUCLEATED RED BLOOD CELLS (BEAKER) (test 0 /100 WBC 0-0 tpto=432) NEUTROPHILS RELATIVE PERCENT (BEAKER) (test 44 % yxme=554) LYMPHOCYTES RELATIVE PERCENT (BEAKER) (test 44 % pfpu=655) MONOCYTES RELATIVE PERCENT (BEAKER) (test 6 % levr=626) EOSINOPHILS RELATIVE PERCENT (BEAKER) (test 5 % tnad=508) BASOPHILS RELATIVE PERCENT (BEAKER) (test 0 % btqs=102) NEUTROPHILS ABSOLUTE COUNT (BEAKER) (test 2.14 K/ L 1.56-6.13 kzku=908) LYMPHOCYTES ABSOLUTE COUNT (BEAKER) (test 2.12 K/ L 1.18-3.74 fpxj=359) MONOCYTES ABSOLUTE COUNT (BEAKER) (test 0.31 K/ L 0.24-0.36 lcuz=478) EOSINOPHILS ABSOLUTE COUNT (BEAKER) (test 0.24 K/ L 0.04-0.36 ldcj=364) BASOPHILS ABSOLUTE COUNT (BEAKER) (test 0.01 K/ L 0.01-0.08 bqjf=475) IMMATURE GRANULOCYTES-RELATIVE PERCENT (BEAKER) 0 % 0-1 (test mqta=1819) RAD, CHEST, 1 VIEW, NON [id number] 14:21:00Reason for exam:->FeverShould this be performed at the bedside?->YesFINAL REPORT TECHNIQUE: Frontal chest radiograph dated 07/06/2018. CLINICAL HISTORY: Fever COMPARISON STUDY: None IMPRESSION:Lungs are clear. No pleural effusion or pneumothorax. Cardiomediastinal silhouette is normal in size. No pulmonary edema. No fracture. Signed: Xiao Mckinney MDReport Verified Date/Time: 11/2018 14:21:04 Reading Location: [facility] Radiology Reading Room RAPID DRUG SCREEN , [id number] 12:52:00 Test Item Value Reference Range Comments BARBITURATE URINE (BEAKER) (test cyzk=314) Negative Negative BENZODIAZEPINE SCREEN URINE (BEAKER) (test Positive Negative vklh=403) COCAINE (METAB.) SCREEN (BEAKER) (test hpsw=3078) Negative Negative METHADONE SCREEN (BEAKER) (test pjar=3533) Negative Negative OPIATE SCREEN URINE (BEAKER) (test hfym=302) Positive Negative CANNABINOID SCREEN URINE (BEAKER) (test firf=688) Negative Negative AMPH/METHAMPH SCREEN (BEAKER) (test ziqj=0619) Negative Negative PHENCYCLIDINE SCREEN URINE (BEAKER) (test pbgh=398) Negative Negative OXYCODONE SCREEN URINE (BEAKER) (test kgef=1639) Negative Negative DRUG CUTOFF CONC.Cocaine 300 ng/mL Cannabinoid 50 ng/mL Benzodiazepine 200 ng/mLBarbiturate 200 ng/ mLPhencyclidine 25 ng/mLOpiate 300 ng/mLMethadone 300 ng/mLAmphetamine/ 1000 ng/mL MethamphetamineOxycodone 300 ng/mLThis assay provides an unconfirmed qualitative test result for the clinical management of patients in emergency situations. Chain of custody not maintained. Some rhyc-mfa-ckuafic medications, as well as adulterants, may cause inaccurate results. Clinical correlation should be applied. A more comprehensive drug screen or confirmation of a detected drug may be performed upon request.CBC W/PLT COUNT & AUTO [id number] 12:40:00 Test Item Value Reference Range Comments WHITE BLOOD CELL COUNT (BEAKER) (test ttqd=229) 8.7 K/ L 3.5-10.5 RED BLOOD CELL COUNT (BEAKER) (test gqoj=927) 4.01 M/ L 3.93-5.22 HEMOGLOBIN (BEAKER) (test kubz=827) 12.6 GM/DL 11.2-15.7 HEMATOCRIT (BEAKER) (test dhqi=341) 39.3 % 34.1-44.9 MEAN CORPUSCULAR VOLUME (BEAKER) (test uoib=631) 98.0 fL 79.4-94.8 MEAN CORPUSCULAR HEMOGLOBIN (BEAKER) (test 31.4 pg 25.6-32.2 lwve=116) MEAN CORPUSCULAR HEMOGLOBIN CONC (BEAKER) (test 32.1 GM/DL 32.2-35.5 zvhy=459) RED CELL DISTRIBUTION WIDTH (BEAKER) (test 14.3 % 11.7-14.4 tpet=415) PLATELET COUNT (BEAKER) (test eafl=200) 212 K/CU MM 150-450 MEAN PLATELET VOLUME (BEAKER) (test hhif=250) 10.0 fL 9.4-12.3 NUCLEATED RED BLOOD CELLS (BEAKER) (test 0 /100 WBC 0-0 mxsl=758) NEUTROPHILS RELATIVE PERCENT (BEAKER) (test 65 % jswc=408) LYMPHOCYTES RELATIVE PERCENT (BEAKER) (test 25 % iawm=253) MONOCYTES RELATIVE PERCENT (BEAKER) (test 7 % ttwn=580) EOSINOPHILS RELATIVE PERCENT (BEAKER) (test 2 % ittr=446) BASOPHILS RELATIVE PERCENT (BEAKER) (test 0 % jvks=649) NEUTROPHILS ABSOLUTE COUNT (BEAKER) (test 5.70 K/ L 1.56-6.13 hyzx=925) LYMPHOCYTES ABSOLUTE COUNT (BEAKER) (test 2.18 K/ L 1.18-3.74 dksg=688) MONOCYTES ABSOLUTE COUNT (BEAKER) (test 0.59 K/ L 0.24-0.36 kbyc=699) EOSINOPHILS ABSOLUTE COUNT (BEAKER) (test 0.17 K/ L 0.04-0.36 gnqw=228) BASOPHILS ABSOLUTE COUNT (BEAKER) (test 0.02 K/ L 0.01-0.08 febm=188) IMMATURE GRANULOCYTES-RELATIVE PERCENT (BEAKER) 1 % 0-1 (test seev=9817) [id number] 12:12:00 Test Item Value Reference Range Comments PHOSPHORUS (BEAKER) (test qcgq=383) 3.0 mg/dL 2.3-4.7 [id number] 12:12:00 Test Item Value Reference Range Comments MAGNESIUM (BEAKER) (test innp=900) 2.1 mg/dL 1.6-2.6 BASIC METABOLIC [id number] 12:12:00 Test Item Value Reference Range Comments SODIUM (BEAKER) (test 138 meq/L 136-145 qhoc=781) POTASSIUM (BEAKER) (test 3.7 meq/L 3.5-5.1 keae=369) CHLORIDE (BEAKER) (test 104 meq/L 98-107 rddb=147) CO2 (BEAKER) (test 25 meq/L 22-29 fhpj=398) BLOOD UREA NITROGEN 8 mg/dL 7-21 (BEAKER) (test xsbg=240) CREATININE (BEAKER) (test 0.72 mg/dL 0.57-1.25 vevx=472) GLUCOSE RANDOM (BEAKER) 93 mg/dL 70-105 (test jsvx=487) CALCIUM (BEAKER) (test 9.1 mg/dL 8.4-10.2 dyck=255) EGFR (BEAKER) (test 87 mL/min/1.73 sq m ESTIMATED GFR IS NOT gnge=7876) ACCURATE CREATININE CLEARANCE IN PREDICTING GLOMERULAR FILTRATION RATE. ESTIMATED GFR IS NOT APPLICABLE FOR DIALYSIS PATIENTS. HEPATIC FUNCTION [id number] 12:12:00 Test Item Value Reference Range Comments TOTAL PROTEIN (BEAKER) (test ojqw=558) 6.4 gm/dL 6.0-8.3 ALBUMIN (BEAKER) (test nybr=1935) 3.9 g/dL 3.5-5.0 BILIRUBIN TOTAL (BEAKER) (test emyw=549) 0.5 mg/dL 0.2-1.2 BILIRUBIN DIRECT (BEAKER) (test emtm=741) 0.2 mg/dL 0.1-0.5 ALKALINE PHOSPHATASE (BEAKER) (test disl=212) 78 U/L 40-150 AST (SGOT) (BEAKER) (test knvg=068) 14 U/L 5-34 ALT (SGPT) (BEAKER) (test dzhh=306) 12 U/L 6-55 LACTIC ACID, VENOUS, WHOLE [id number] 12:08:00 Test Item Value Reference Range Comments LACTATE BLOOD VENOUS (2) 0.8 mmol/L 0.5-2.2 Specimen moderately hemolyzed (BEAKER) (test kpwl=3943) URINALYSIS W/ REFLEX URINE [id number] 11:10:00 Test Item Value Reference Range Comments COLOR (BEAKER) (test pnzs=039) Light Yellow CLARITY (BEAKER) (test rndg=320) Clear SPECIFIC GRAVITY UA (BEAKER) (test sifx=012) 1.020 1.001-1.035 PH UA (BEAKER) (test sjpa=735) 6.5 5.0-8.0 PROTEIN UA (BEAKER) (test vpcq=567) Negative Negative GLUCOSE UA (BEAKER) (test xlil=582) Negative Negative KETONES UA (BEAKER) (test tnhz=176) Negative Negative BILIRUBIN UA (BEAKER) (test fcyw=689) Negative Negative BLOOD UA (BEAKER) (test zdut=630) Negative Negative NITRITE UA (BEAKER) (test zjvh=610) Negative Negative LEUKOCYTE ESTERASE UA (BEAKER) (test prio=346) Negative Negative UROBILINOGEN UA (BEAKER) (test vktj=572) 0.2 mg/dL 0.2-1.0 RBC UA (BEAKER) (test gzgp=056) < /HPF WBC UA (BEAKER) (test szyq=155) 0 /HPF SQUAMOUS EPITHELIAL (BEAKER) (test gzkn=450) < /HPF SOURCE(BEAKER) (test gjgq=1233) CT ABDOMEN/PELVIS [id number] 14:26:[address] [id number] IMAGING REPORTPatient Name : Manuel DEL TORO of Service: [id number]: 45 Sex: F Order #: [id number] [facility] 1970 [facility] Number: [id number] Record Number: [id number] Hospital Number: [id number] Physician: KISHAN MUNOZ - Ordering Physician: HERNANDEZ [...] by TIFFANIE Syed 2016-07-26 14:23:48CT ABDOMEN/ PELVIS [id number] 02:49:[place] [id number] IMAGING REPORTPatient Name: Manuel DEL TORO of Service: [id number]: [phone] Sex: F Order #: [id number] [facility] 1970 X-Ray Number: [id number] Record Number: [id number] Hospital Number: [id number] Physician: BLAKE ALLEN - Ordering Physician: AURORA [...] authenticated by MARTINEZ VALDEZ 2016-07-17 02:47:19ABDOMEN 2 [id number] 12:14:[address] [id number] IMAGING REPORTPatient Name: Manuel DEL TORO of Service: [id number]: [phone] Sex: F Order #: [id number] [facility] 1970 [facility] Number: [id number] Record Number: [id number] Hospital Number: [id number] Physician: ANMOL TEJEDAOrdering Physician: Elvis GARCIA 2 [...]
--- NOTE | 2018-11-25 14:06 | RAD REPORT ---
EXAM DESCRIPTION: RAD - Abdomen Acute Series - 11/25/2018 1:17 pm CLINICAL HISTORY: Abdominal pain, shortness of breath COMPARISON: November 21, 2018 abdomen, portable chest November 06 FINDINGS: There is a vague nodular focus in the lower right lung field that is almost certainly a estevez mmation artifact of rib, lung parenchyma and vascular structures. No peripheral mass or consolidation . No acute failure or volume overload. Heart size and pulmonary vasculature are normal. No pleural ef fusion, pneumothorax or other acute cardiopulmonary process seen. Bowel gas pattern is nonspecific. A few mildly prominent small bowel loops are seen. No bowel obstruc tion, free air or other acute findings. No suspicious calcifications. Neurostimulator battery pack ov erlies the lower abdomen and upper pelvis on the right No other suspicious for significant findings. IMPRESSION: No acute cardiopulmonary process identified. Vague nodular density lower right lung field is very likely summation artifact. This could be re-eval uated with a two-view chest examination in this setting or is a short-term follow-up. No obstruction, free air or significant abdominal/ pelvic finding.
[2018-11-25 14:11] LABS: Absolute Lymphocytes (CBC) 2.4 K/uL (0.7-4.9); Basophils % 0.3 % (0-1.3); Hematocrit 35.6 % (36.0-45.0); Lymphocytes % 27.6 % (15.3-44.8); MPV 6.4 fL (7.6-11.3); RBC Red Blood Cell Count 3.89 M/uL (3.86-4.86)
--- NOTE | 2018-11-25 14:26 | RAD REPORT ---
EXAM DESCRIPTION: US - Extrem Venous W Compress Abhijeet - 11/25/2018 2:11 pm CLINICAL HISTORY: Leg pain and swelling COMPARISON: None. TECHNIQUE: Real-time sonographic evaluation of the bilateral lower extremity common femoral, superfi cial femoral, popliteal and posterior tibial veins was performed. FINDINGS: Normal compressibility, flow augmentation, phasic flow and spontaneous flow are identified in the left and right lower extremity common femoral, superficial femoral, popliteal and posterior t ibial veins. No intraluminal filling defects seen. IMPRESSION: No DVT in either lower extremity.
[2018-11-25 14:27] LABS: ALT/SGPT 20 U/L (12-78); AST/SGOT 12 U/L (15-37); Alkaline Phosphatase 64 U/L (45-117); BUN Blood Urea Nitrogen 9 mg/dL (7-18); Bicarbonate 30 mmol/L (21-32); Bilirubin Direct < 0.1 mg/dL (0-0.2); Bilirubin Total 0.2 mg/dL (0.2-1.0); Glucose Level 89 mg/dL (74-106); Lipase 163 U/L (73-393); Potassium 4.2 mmol/L (3.5-5.1); Sodium Level 144 mmol/L (136-145)
[2018-11-25 14:56] LABS: Urine Blood NEGATIVE (NEG); Urine Glucose NEGATIVE (NEG); Urine Protein NEGATIVE (NEG)
[2018-11-25] MEDS ORDERED: ONDANSETRON 4 MG/2 ML VIAL ONE (15:09)
[2018-11-25] MEDS ORDERED: MORPHINE 4 MG/ML SYR ONE (15:09)
--- NOTE | 2018-11-25 15:28 | ER ---
Nurse's Notes [facility] Name: Angela Rodriguez Age: 48 yrs Sex: Female : 1970 Arrival Date: 11/25/2018 Time: 12:10 Bed 13 Private MD: Diagnosis: Unspecified abdominal pain-Chronic;Edema, unspecified Presentation: 11/25 12:32 Presenting complaint: Patient states: "I feel like I'm in adrenal crisis. My legs are rb1 swollen and I feel like I'm on an emotional roller coaster emotionally. One minute I'm up running around and the next I just want to sleep.". Transition of care: patient was not received from another setting of care. Onset of symptoms is unknown. Risk Assessment: Do you want to hurt yourself or someone else? Patient reports no desire to harm self or others. Initial Sepsis Screen: Does the patient meet any 2 criteria? No. Patient's initial sepsis screen is negative. Does the patient have a suspected source of infection? No. Patient's initial sepsis screen is negative. Care prior to arrival: None. 12:32 Method Of Arrival: Ambulatory rb1 12:32 Acuity: LIZZY 3 rb1 Triage Assessment: 12:32 General: Appears uncomfortable, Behavior is anxious, crying, Denies fever. Neuro: Level rb1 of Consciousness is awake, alert, obeys commands, Oriented to person, place, time, situation. Cardiovascular: Capillary refill < 3 seconds is brisk in bilateral fingers. Respiratory: Airway is patent Respiratory effort is even, unlabored, Respiratory pattern is regular, symmetrical. GI: No signs and/or symptoms were reported involving the gastrointestinal system. : No signs and/or symptoms were reported regarding the genitourinary system. Derm: Skin is pink, warm \\T\\ dry. Musculoskeletal: Swelling present in right leg and left leg. 12:32 Pain: Complains of pain in abdomen Pain currently is 8 out of 10 on a pain scale. rb1 MEAT COOLER: 12:32 LMP N/A - Irregular menses rb1 Historical: - Allergies: 12:32 Ciprofloxacin; rb1 12:32 Phenergan; rb1 - Home Meds: 12:32 DILAUDID IN PAIN PUMP [Active]; Klonopin Oral [Active]; Lialda 1.2 gram Oral grps 2 rb1 tabs once daily [Active]; pantoprazole 40 mg intravenous solr [Active]; Stelara subcutaneous [Active]; hydrocortisone 20 mg Oral tab 2 tabs once daily [Active]; - PMHx: 12:32 adrenal insufficiency; Bipolar disorder; Chronic pain; Crohn's; Endometrosis; rb1 Hypothyroidism; - PSHx: 12:32 Pain Pump -Dilaudid; rb1 - Immunization history:: Adult Immunizations up to date. - Social history:: Smoking status: Patient uses tobacco products, smokes one pack cigarettes per day. - Ebola Screening: : Patient negative for fever greater than or equal to 101.5 degrees Fahrenheit, and additional compatible Ebola Virus Disease symptoms. Screenin:32 Abuse screen: Denies threats or abuse. Nutritional screening: No deficits noted. rb1 Tuberculosis screening: No symptoms or risk factors identified. Fall Risk None identified. Assessment: 12:32 General: See triage assessment. rb1 13:15 Reassessment: Patient appears in no apparent distress at this time. No changes from rb1 previously documented assessment. 14:00 Reassessment: Patient appears in no apparent distress at this time. Patient and/or rb1 family updated on plan of care and expected duration. Pain level reassessed. Patient is alert, oriented x 3, equal unlabored respirations, skin warm/dry/pink. 15:00 Reassessment: Patient appears in no apparent distress at this time. No changes from rb1 previously documented assessment. 16:00 Reassessment: Patient appears in no apparent distress at this time. Patient and/or rb1 family updated on plan of care and expected duration. Pain level reassessed. Patient is alert, oriented x 3, equal unlabored respirations, skin warm/dry/pink. Vital Signs: 12:32 BP 165 / 68; Pulse 67; Resp 17; Temp 98.1(O); Pulse Ox 100% on R/A; Weight 76.2 kg (R); rb1 Height 5 ft. 2 in. (157.48 cm); 13:30 BP 145 / 98; Pulse 57; Resp 17; Temp 98.1(O); Pulse Ox 98% on R/A; Pain 7/10; rb1 14:54 BP 147 / 94; Pulse 55; Resp 16; Pulse Ox 97% on R/A; Pain 8/10; ss 15:50 BP 148 / 91; Pulse 66; Resp 16; Temp 97.9(TE); Pulse Ox 98% on R/A; Pain 6/10; rb1 12:32 Body Mass Index 30.73 (76.20 kg, 157.48 cm) rb1 ED Course: 12:10 Patient arrived in ED. as 12:32 Kalie Zaidi, RN is Primary Nurse. rb1 12:32 Patient has correct armband on for positive identification. Placed in gown. Bed in low rb1 position. Call light in reach. Side rails up X 1. Pulse ox on. NIBP on. Warm blanket given. 12:32 Arm band placed on right wrist. rb1 12:33 Hal Donis PA is PHCP. m 12:33 Jorge Alberto Cooley MD is Attending Physician. [facility] 12:51 Triage completed. rb1 13:20 Abdomen Acute Series XRAY In Process Unspecified. EDMS 14:00 Initial lab(s) drawn, by me, sent to lab. Inserted saline lock: 20 gauge in left em1 forearm, using aseptic technique. Blood collected. 14:14 US Extremity Venous W Compression Abhijeet In Process Unspecified. EDMS 14:14 Ultrasound completed. Patient tolerated well. sg3 16:07 No provider procedures requiring assistance completed. IV discontinued, intact, rb1 bleeding controlled, No redness/swelling at site. Pressure dressing applied. Administered Medications: 13:54 CANCELLED (wrong patient): hydrALAZINE 5 mg IV at calculated rate once [facility] 14:55 Drug: morphine 4 mg Route: IVP; Site: left forearm; rb1 15:10 Follow up: Response: No adverse reaction; Pain is decreased; Pain 6/10 rb1 14:55 Drug: Zofran 4 mg Route: IVP; Site: left forearm; rb1 15:10 Follow up: Response: No adverse reaction; Nausea is decreased rb1 Intake: Outcome: 15:28 Discharge ordered by MD. m 16:07 Patient left the ED. rb1 16:07 Discharged to home ambulatory, with significant other. rb1 16:07 Condition: stable 16:07 Discharge instructions given to patient, Instructed on discharge instructions, follow up and referral plans. medication usage, Demonstrated understanding of instructions, follow-up care, medications, Prescriptions given X 1. Signatures: Dispatcher [employer] EDMS Hal Donis PA PA jmm Martinez, Amelia as Martinez, Eric em1 Alena Youngblood, RN RN ss Kalie Zaidi RN RN rb1 Nga De Dios 3 Corrections: (The following items were deleted from the chart) 16:29 16:27 Patient left the ED. rb1 rb1
--- NOTE | 2018-11-25 15:28 | EDPHYS ---
Physician Documentation [facility] Name: Angela Rodriguez Age: 48 yrs Sex: Female : 1970 Arrival Date: 11/25/2018 Time: 12:10 Bed 13 Private MD: ED Physician Jorge Alberto Cooley HPI: 11/25 12:42 This 48 yrs old Female presents to ER via Ambulatory with complaints of jmm Adrenal Crisis. 12:42 The patient presents with abdominal pain that is diffuse. The symptoms do not radiate. jmm Associated signs and symptoms: Pertinent positives: diarrhea, vomiting. This is a 48 year old female with a history of adrenal insufficiency, chronic pain, crohns that presents to the ED with complaints of leg swelling, abdominal swelling beginning approx 3 days ago. Patient was advised by her endo to go to the ED due to concerns for adrenal crisis. Patient also complains of ongoing abdominal pain similar in character since discharge from [facility]. Pain has been worse since discharge according to family. . DIRECTOR EXPERIMENTAL MEDICINE: 12:32 LMP N/A - Irregular menses rb1 Historical: - Allergies: 12:32 Ciprofloxacin; rb1 12:32 Phenergan; rb1 - Home Meds: 12:32 DILAUDID IN PAIN PUMP [Active]; Klonopin Oral [Active]; Lialda 1.2 gram Oral grps 2 rb1 tabs once daily [Active]; pantoprazole 40 mg intravenous solr [Active]; Stelara subcutaneous [Active]; hydrocortisone 20 mg Oral tab 2 tabs once daily [Active]; - PMHx: 12:32 adrenal insufficiency; Bipolar disorder; Chronic pain; Crohn's; Endometrosis; rb1 Hypothyroidism; - PSHx: 12:32 Pain Pump -Dilaudid; rb1 - Immunization history:: Adult Immunizations up to date. - Social history:: Smoking status: Patient uses tobacco products, smokes one pack cigarettes per day. - Ebola Screening: : Patient negative for fever greater than or equal to 101.5 degrees Fahrenheit, and additional compatible Ebola Virus Disease symptoms. ROS: 12:42 Constitutional: Negative for fever, chills, and weight loss, Cardiovascular: Negative jmm for chest pain, palpitations, and edema, Respiratory: Negative for shortness of breath, cough, wheezing, and pleuritic chest pain. 12:42 Abdomen/GI: Positive for abdominal pain, nausea and vomiting, diarrhea. 12:42 MS/extremity: Positive for swelling. 12:42 All other systems are negative. Exam: 12:42 Constitutional: This is a well developed, well nourished patient who is awake, alert, jmm and in no acute distress. Head/Face: atraumatic. Eyes: EOMI, no conjunctival erythema appreciated ENT: Moist Mucus Membranes Neck: Trachea midline, Supple Chest/axilla: Normal chest wall appearance and motion. Cardiovascular: Regular rate and rhythm. No edema appreciated Respiratory: Normal respirations, no respiratory distress appreciated 12:42 Back: Normal ROM Skin: General appearance color normal 12:42 Abdomen/GI: Inspection: distension, that is mild, Bowel sounds: normal, Palpation: soft, in all quadrants, mild abdominal tenderness, in the right upper quadrant, left upper quadrant, right lower quadrant and left lower quadrant. 12:42 Musculoskeletal/extremity: ROM: intact in all extremities, edema noted ot the legs bilaterally. 12:42 Skin: Appearance: Color: normal in color. 12:42 Neuro: Orientation: is normal, Mentation: is normal, Memory: is normal. 12:42 Psych: Behavior/mood is pleasant, cooperative. Vital Signs: 12:32 BP 165 / 68; Pulse 67; Resp 17; Temp 98.1(O); Pulse Ox 100% on R/A; Weight 76.2 kg (R); rb1 Height 5 ft. 2 in. (157.48 cm); 13:30 BP 145 / 98; Pulse 57; Resp 17; Temp 98.1(O); Pulse Ox 98% on R/A; Pain 7/10; rb1 14:54 BP 147 / 94; Pulse 55; Resp 16; Pulse Ox 97% on R/A; Pain 8/10; ss 15:50 BP 148 / 91; Pulse 66; Resp 16; Temp 97.9(TE); Pulse Ox 98% on R/A; Pain 6/10; rb1 12:32 Body Mass Index 30.73 (76.20 kg, 157.48 cm) rb1 MDM: 12:42 Patient medically screened. [facility] 15:27 Data reviewed: vital signs, nurses notes. Counseling: I had a detailed discussion with tabby the patient and/or guardian regarding: the historical points, exam findings, and any diagnostic results supporting the discharge/admit diagnosis, the need for outpatient follow up, to return to the emergency department if symptoms worsen or persist or if there are any questions or concerns that arise at home. 15:46 ED course: Pain is relieved in the ED. Patient tolerates PO. Labs unremarkable. I do jmm not suspect acute abdomen. Pain is chronic. Patient's bp has not been hypotensive throughout the evaluation. I do not suspect adrenal crisis. Patient has continued to take prednisone as directed. Patient is otherwise given strict return precautions. patient understood and agrees with the plan of care. . 11/25 12:52 Order name: Basic Metabolic Panel; Complete Time: 14:34 [facility] 11/25 12:52 Order name: CBC with Diff; Complete Time: 14:16 [facility] 11/25 12:52 Order name: Creatinine for Radiology; Complete Time: 14:26 [facility] 11/25 12:52 Order name: Hepatic Function; Complete Time: 14:34 [facility] 11/25 12:52 Order name: Lipase; Complete Time: 14:34 [facility] 11/25 14:00 Order name: Urine Dipstick--Ancillary (enter results); Complete Time: 15:05 em1 11/25 12:52 Order name: IV Saline Lock; Complete Time: 14: [facility] 11/25 12:52 Order name: Labs collected and sent; Complete Time: 14: [facility] 11/25 12:52 Order name: Abdomen Acute Series XRAY; Complete Time: 14:10 [facility] 11/25 12:52 Order name: Urine Dipstick-Ancillary (obtain specimen); Complete Time: 14:01 [facility] 11/25 13:09 Order name: US Extremity Venous W Compression Abhijeet; Complete Time: 14:34 [facility] 11/25 14:40 Order name: Vital Signs; Complete Time: 14:57 [facility] Administered Medications: 13:54 CANCELLED (wrong patient): hydrALAZINE 5 mg IV at calculated rate once [facility] 14:55 Drug: morphine 4 mg Route: IVP; Site: left forearm; rb1 15:10 Follow up: Response: No adverse reaction; Pain is decreased; Pain 10/08 rb1 14:55 Drug: Zofran 4 mg Route: IVP; Site: left forearm; rb1 15:10 Follow up: Response: No adverse reaction; Nausea is decreased rb1 Disposition: 11/26 07:21 Co-signature as Attending Physician, Jorge Alberto Cooley MD I agree with the assessment and no plan of care. Disposition: 11/25/18 15:28 Discharged to Home. Impression: Unspecified abdominal pain - Chronic, Edema, unspecified. - Condition is Stable. - Discharge Instructions: Abdominal Pain, Adult, Peripheral Edema. - Prescriptions for Tylenol- Codeine #3 300-30 mg Oral Tablet - take 1 tablet by ORAL route every 6 hours As needed; 12 tablet. - Medication Reconciliation Form, Thank You Letter, Antibiotic Education, Prescription Opioid Use form. - Follow up: Private Physician; When: 2 - 3 days; Reason: Recheck today's complaints, Continuance of care, Re-evaluation by your physician. Signatures: Dispatcher [employer] EDJorge Alberto Calderon MD MD cha Mickail, Joel, PA PA jmm Barber, Rebecca, RN RN rb1 Corrections: (The following items were deleted from the chart) 11/25 13:54 13:54 hydrALAZINE 5 mg IV at calculated rate once ordered. tabby mcnair 16:27 15:28 11/25/2018 15:28 Discharged to Home. Impression: Unspecified abdominal pain - rb1 Chronic; Edema, unspecified. Condition is Stable. Forms are Medication Reconciliation Form, Thank You Letter, Antibiotic Education, Prescription Opioid Use. Follow up: Private Physician; When: 2 - 3 days; Reason: Recheck today's complaints, Continuance of care, Re-evaluation by your physician. tabby
[2018-11-25 16:56] VITALS: TEMP 98.1
[2018-11-25 16:59] VITALS: BP 147/94; O2SAT 97
== END 2018-11-25 16:27 | disposition home or self-care (01) ==
LOC: ER 12:06
DX: R60.9 Edema, unspecified (principal); F17.210 Nicotine dependence, cigarettes, uncomplicated; E03.9 Hypothyroidism, unspecified; E27.40 Unspecified adrenocortical insufficiency; F31.9 Bipolar disorder, unspecified; Z88.3 Allergy status to other anti-infective agents; Z88.8 Allergy status to other drugs, medicaments and biological substances
CPT/HCPCS: 85025; 80048; 36415; 80076; 81003; 83690; 74022; 93970; 96375; 96374; 99284; J2405

== ENCOUNTER 2019-04-16 10:02 | Emergency (ER) | payer OTHER ==
--- OUTSIDE RECORDS SUMMARY | 2019-04-16 10:07 | XMS REPORT ---
:1970 [facility] Address [address] [place] [address] [address]. [address] [place] [address] Care Team Providers Name Role Phone DR [...] Facility Department ID 2016-11-04 Inpatient C [facility] [place] [facility] [id number] 09:30:00 EDGARD 2016-07-15 2016-07-19 Inpatient [address] [facility] [id number] 18:47:00 10:30:00 BLAKE 2013-11-19 2013-11-19 Emergency E [facility] [id number] 10:08:00 12:55:00 RADHA Results Test Description Test Time Test Comments Text Results Atomic Results Result Comments MAGNESIUM 2018-11-16 08:01:00 Test Item Value Reference Range Comments MAGNESIUM (BEAKER) (test hglc=999) 1.8 mg/dL 1.6-2.6 Specimen moderately hemolyzed BASIC METABOLIC [id number] 08:01:00 Test Item Value Reference Range Comments SODIUM (BEAKER) (test 137 meq/L 136-145 barc=900) POTASSIUM (BEAKER) (test 4.5 meq/L 3.5-5.1 Specimen moderately jnoi=919) hemolyzed CHLORIDE (BEAKER) (test 109 meq/L 98-107 jriq=677) CO2 (BEAKER) (test 19 meq/L 22-29 pkml=689) BLOOD UREA NITROGEN 9 mg/dL 7-21 (BEAKER) (test oivx=268) CREATININE (BEAKER) (test 0.71 mg/dL 0.57-1.25 Specimen moderately sykx=245) hemolyzed GLUCOSE RANDOM (BEAKER) 85 mg/dL 70-105 (test rmvx=929) CALCIUM (BEAKER) (test 9.0 mg/dL 8.4-10.2 attn=338) EGFR (BEAKER) (test 88 mL/min/1.73 sq m ESTIMATED GFR IS NOT twxy=6287) ACCURATE CREATININE CLEARANCE IN PREDICTING GLOMERULAR FILTRATION RATE. ESTIMATED GFR IS NOT APPLICABLE FOR DIALYSIS PATIENTS. CBC W/PLT COUNT & AUTO [id number] 05:59:00 Test Item Value Reference Range Comments WHITE BLOOD CELL COUNT (BEAKER) (test fwtt=975) 7.3 K/ L 3.5-10.5 RED BLOOD CELL COUNT (BEAKER) (test aqhp=997) 4.15 M/ L 3.93-5.22 HEMOGLOBIN (BEAKER) (test eabh=794) 12.4 GM/DL 11.2-15.7 HEMATOCRIT (BEAKER) (test bzhh=343) 38.4 % 34.1-44.9 MEAN CORPUSCULAR VOLUME (BEAKER) (test vtuh=185) 92.5 fL 79.4-94.8 MEAN CORPUSCULAR HEMOGLOBIN (BEAKER) (test 29.9 pg 25.6-32.2 wwhc=219) MEAN CORPUSCULAR HEMOGLOBIN CONC (BEAKER) (test 32.3 GM/DL 32.2-35.5 mbic=035) RED CELL DISTRIBUTION WIDTH (BEAKER) (test 14.4 % 11.7-14.4 hcin=789) PLATELET COUNT (BEAKER) (test smor=221) 275 K/CU MM 150-450 MEAN PLATELET VOLUME (BEAKER) (test jrni=605) 8.9 fL 9.4-12.3 NUCLEATED RED BLOOD CELLS (BEAKER) (test 0 /100 WBC 0-0 merf=758) NEUTROPHILS RELATIVE PERCENT (BEAKER) (test 49 % tpou=492) LYMPHOCYTES RELATIVE PERCENT (BEAKER) (test 41 % gdst=174) MONOCYTES RELATIVE PERCENT (BEAKER) (test 7 % wune=711) EOSINOPHILS RELATIVE PERCENT (BEAKER) (test 3 % slqa=267) BASOPHILS RELATIVE PERCENT (BEAKER) (test 0 % yrtj=624) NEUTROPHILS ABSOLUTE COUNT (BEAKER) (test 3.54 K/ L 1.56-6.13 uwua=823) LYMPHOCYTES ABSOLUTE COUNT (BEAKER) (test 2.99 K/ L 1.18-3.74 kpxx=606) MONOCYTES ABSOLUTE COUNT (BEAKER) (test 0.52 K/ L 0.24-0.36 soqn=038) EOSINOPHILS ABSOLUTE COUNT (BEAKER) (test 0.20 K/ L 0.04-0.36 lgjy=373) BASOPHILS ABSOLUTE COUNT (BEAKER) (test 0.03 K/ L 0.01-0.08 vmkm=210) IMMATURE GRANULOCYTES-RELATIVE PERCENT (BEAKER) 0 % 0-1 (test nrhq=7087) [id number] 07:04:00 Test Item Value Reference Range Comments MAGNESIUM (BEAKER) (test axlo=896) 1.8 mg/dL 1.6-2.6 BASIC METABOLIC [id number] 07:04:00 Test Item Value Reference Range Comments SODIUM (BEAKER) (test 139 meq/L 136-145 ajol=687) POTASSIUM (BEAKER) (test 4.5 meq/L 3.5-5.1 cbco=792) CHLORIDE (BEAKER) (test 110 meq/L 98-107 hkiz=888) CO2 (BEAKER) (test 23 meq/L 22-29 xfvj=843) BLOOD UREA NITROGEN 13 mg/dL 7-21 (BEAKER) (test uymx=876) CREATININE (BEAKER) (test 0.76 mg/dL 0.57-1.25 xfyw=904) GLUCOSE RANDOM (BEAKER) 100 mg/dL 70-105 (test ciku=972) CALCIUM (BEAKER) (test 9.2 mg/dL 8.4-10.2 vtbg=546) EGFR (BEAKER) (test 82 mL/min/1.73 sq m ESTIMATED GFR IS NOT vmtt=5474) ACCURATE CREATININE CLEARANCE IN PREDICTING GLOMERULAR FILTRATION RATE. ESTIMATED GFR IS NOT APPLICABLE FOR DIALYSIS PATIENTS. CORTISOL,60 [id number] 07:01:00 Test Item Value Reference Range Comments CORTISOL BASELINE NETWORKED (BEAKER) (test < mcg/dL wbvb=5843) CORTISOL 30 MINUTE NETWORKED (BEAKER) (test 6.0 mcg/dL xywm=4894) CORTISOL, 60 MINUTE (BEAKER) (test mgob=4927) 7.0 ug/dL ACTH STIMULATION TEST INTERPRETATION GUIDELINES(Synonyms: [...] serum cortisollevel 60 minutes after cosyntropin administration.CORTISOL,30 [id number] 07:01:00 Test Item Value Reference Range Comments CORTISOL BASELINE NETWORKED (BEAKER) (test < mcg/dL host=0811) CORTISOL, 30 MINUTE (BEAKER) (test qfop=3614) 6.0 ug/dL ACTH STIMULATION TEST INTERPRETATION GUIDELINES(Synonyms: [...] after cosyntropin administration.CBC W/PLT COUNT & AUTO [id number] 05:46:00 Test Item Value Reference Range Comments WHITE BLOOD CELL COUNT (BEAKER) (test aohn=027) 6.0 K/ L 3.5-10.5 RED BLOOD CELL COUNT (BEAKER) (test dxjv=092) 4.25 M/ L 3.93-5.22 HEMOGLOBIN (BEAKER) (test rlnh=169) 12.6 GM/DL 11.2-15.7 HEMATOCRIT (BEAKER) (test pccv=310) 40.4 % 34.1-44.9 MEAN CORPUSCULAR VOLUME (BEAKER) (test csaj=494) 95.1 fL 79.4-94.8 MEAN CORPUSCULAR HEMOGLOBIN (BEAKER) (test 29.6 pg 25.6-32.2 wyiz=459) MEAN CORPUSCULAR HEMOGLOBIN CONC (BEAKER) (test 31.2 GM/DL 32.2-35.5 ldjw=362) RED CELL DISTRIBUTION WIDTH (BEAKER) (test 14.6 % 11.7-14.4 vcbm=883) PLATELET COUNT (BEAKER) (test meab=995) 223 K/CU MM 150-450 MEAN PLATELET VOLUME (BEAKER) (test wnzd=715) 8.6 fL 9.4-12.3 NUCLEATED RED BLOOD CELLS (BEAKER) (test 0 /100 WBC 0-0 qiim=261) NEUTROPHILS RELATIVE PERCENT (BEAKER) (test 50 % wtzf=723) LYMPHOCYTES RELATIVE PERCENT (BEAKER) (test 37 % mqah=445) MONOCYTES RELATIVE PERCENT (BEAKER) (test 8 % fjld=383) EOSINOPHILS RELATIVE PERCENT (BEAKER) (test 5 % ajvh=887) BASOPHILS RELATIVE PERCENT (BEAKER) (test 1 % xevs=598) NEUTROPHILS ABSOLUTE COUNT (BEAKER) (test 3.01 K/ L 1.56-6.13 noeh=287) LYMPHOCYTES ABSOLUTE COUNT (BEAKER) (test 2.24 K/ L 1.18-3.74 eowc=618) MONOCYTES ABSOLUTE COUNT (BEAKER) (test 0.45 K/ L 0.24-0.36 oolh=041) EOSINOPHILS ABSOLUTE COUNT (BEAKER) (test 0.29 K/ L 0.04-0.36 wruo=677) BASOPHILS ABSOLUTE COUNT (BEAKER) (test 0.03 K/ L 0.01-0.08 uvyi=180) IMMATURE GRANULOCYTES-RELATIVE PERCENT (BEAKER) 0 % 0-1 (test wjdw=9883) CORTISOL,[id number] 19:10:00 Test Item Value Reference Range Comments CORTISOL, BASELINE (BEAKER) (test vpxb=8903) < ug/dL ACTH STIMULATION TEST INTERPRETATION GUIDELINES(Synonyms: [...] Draw serum cortisollevel 60 minutes after cosyntropin administration.[id number] 14:23:00 Test Item Value Reference Range Comments MAGNESIUM (BEAKER) (test yfwg=938) 1.8 mg/dL 1.6-2.6 BASIC METABOLIC [id number] 14:23:00 Test Item Value Reference Range Comments SODIUM (BEAKER) (test 138 meq/L 136-145 dplk=728) POTASSIUM (BEAKER) (test 4.2 meq/L 3.5-5.1 mdog=674) CHLORIDE (BEAKER) (test 104 meq/L 98-107 agta=401) CO2 (BEAKER) (test 24 meq/L 22-29 knye=274) BLOOD UREA NITROGEN 10 mg/dL 7-21 (BEAKER) (test oamx=193) CREATININE (BEAKER) (test 0.82 mg/dL 0.57-1.25 lgbf=191) GLUCOSE RANDOM (BEAKER) 83 mg/dL 70-105 (test gbfz=352) CALCIUM (BEAKER) (test 9.5 mg/dL 8.4-10.2 ekdf=695) EGFR (BEAKER) (test 75 mL/min/1.73 sq m ESTIMATED GFR IS NOT wfng=4350) ACCURATE CREATININE CLEARANCE IN PREDICTING GLOMERULAR FILTRATION RATE. ESTIMATED GFR IS NOT APPLICABLE FOR DIALYSIS PATIENTS. CBC W/PLT COUNT & AUTO [id number] 14:01:00 Test Item Value Reference Range Comments WHITE BLOOD CELL COUNT (BEAKER) (test tggb=283) 7.6 K/ L 3.5-10.5 RED BLOOD CELL COUNT (BEAKER) (test fgti=924) 4.59 M/ L 3.93-5.22 HEMOGLOBIN (BEAKER) (test offe=572) 13.5 GM/DL 11.2-15.7 HEMATOCRIT (BEAKER) (test ohhg=633) 43.0 % 34.1-44.9 MEAN CORPUSCULAR VOLUME (BEAKER) (test tlwa=044) 93.7 fL 79.4-94.8 MEAN CORPUSCULAR HEMOGLOBIN (BEAKER) (test 29.4 pg 25.6-32.2 xaap=137) MEAN CORPUSCULAR HEMOGLOBIN CONC (BEAKER) (test 31.4 GM/DL 32.2-35.5 kimy=149) RED CELL DISTRIBUTION WIDTH (BEAKER) (test 14.5 % 11.7-14.4 tsqa=043) PLATELET COUNT (BEAKER) (test lynp=669) 262 K/CU MM 150-450 MEAN PLATELET VOLUME (BEAKER) (test zerp=859) 8.5 fL 9.4-12.3 NUCLEATED RED BLOOD CELLS (BEAKER) (test 0 /100 WBC 0-0 elsa=355) NEUTROPHILS RELATIVE PERCENT (BEAKER) (test 52 % jixp=713) LYMPHOCYTES RELATIVE PERCENT (BEAKER) (test 37 % bteg=443) MONOCYTES RELATIVE PERCENT (BEAKER) (test 6 % kxrk=178) EOSINOPHILS RELATIVE PERCENT (BEAKER) (test 4 % hgjo=789) BASOPHILS RELATIVE PERCENT (BEAKER) (test 0 % ngkh=662) NEUTROPHILS ABSOLUTE COUNT (BEAKER) (test 3.94 K/ L 1.56-6.13 ohom=774) LYMPHOCYTES ABSOLUTE COUNT (BEAKER) (test 2.82 K/ L 1.18-3.74 xmcr=046) MONOCYTES ABSOLUTE COUNT (BEAKER) (test 0.46 K/ L 0.24-0.36 nimd=451) EOSINOPHILS ABSOLUTE COUNT (BEAKER) (test 0.30 K/ L 0.04-0.36 kzyb=063) BASOPHILS ABSOLUTE COUNT (BEAKER) (test 0.02 K/ L 0.01-0.08 cnid=772) IMMATURE GRANULOCYTES-RELATIVE PERCENT (BEAKER) 0 % 0-1 (test hjks=2013) OVA AND PARASITE [id number] 12:03:00 Test Item Value Reference Range Comments DIRECT SMEAR - O\\T\\P No ova or parasites seen No ova or parasites seen (BEAKER) (test pdnq=953) CONCENTRATE SMEAR - O\\T\\P No ova or parasites seen No ova or parasites seen (BEAKER) (test hwwl=913) TRICHROME SMEAR - O\\T\\P No ova or parasites seen No ova or parasites seen (BEAKER) (test oyot=296) [id number] 05:30:00 Test Item Value Reference Range Comments MAGNESIUM (BEAKER) (test uhll=150) 1.9 mg/dL 1.6-2.6 BASIC METABOLIC [id number] 05:30:00 Test Item Value Reference Range Comments SODIUM (BEAKER) (test 143 meq/L 136-145 yyso=499) POTASSIUM (BEAKER) (test 4.2 meq/L 3.5-5.1 rykz=526) CHLORIDE (BEAKER) (test 109 meq/L 98-107 mjew=778) CO2 (BEAKER) (test 28 meq/L 22-29 zhwe=889) BLOOD UREA NITROGEN 7 mg/dL 7-21 (BEAKER) (test kteu=450) CREATININE (BEAKER) (test 0.70 mg/dL 0.57-1.25 bgxx=521) GLUCOSE RANDOM (BEAKER) 80 mg/dL 70-105 (test viqi=176) CALCIUM (BEAKER) (test 9.2 mg/dL 8.4-10.2 ansa=466) EGFR (BEAKER) (test 90 mL/min/1.73 sq m ESTIMATED GFR IS NOT cmef=5334) ACCURATE CREATININE CLEARANCE IN PREDICTING GLOMERULAR FILTRATION RATE. ESTIMATED GFR IS NOT APPLICABLE FOR DIALYSIS PATIENTS. CBC W/PLT COUNT & AUTO [id number] 04:58:00 Test Item Value Reference Range Comments WHITE BLOOD CELL COUNT (BEAKER) (test wlzp=436) 6.7 K/ L 3.5-10.5 RED BLOOD CELL COUNT (BEAKER) (test ptiq=830) 4.58 M/ L 3.93-5.22 HEMOGLOBIN (BEAKER) (test smfc=865) 13.5 GM/DL 11.2-15.7 HEMATOCRIT (BEAKER) (test oovw=387) 43.8 % 34.1-44.9 MEAN CORPUSCULAR VOLUME (BEAKER) (test unxw=707) 95.6 fL 79.4-94.8 MEAN CORPUSCULAR HEMOGLOBIN (BEAKER) (test 29.5 pg 25.6-32.2 cedi=667) MEAN CORPUSCULAR HEMOGLOBIN CONC (BEAKER) (test 30.8 GM/DL 32.2-35.5 xbdq=095) RED CELL DISTRIBUTION WIDTH (BEAKER) (test 14.7 % 11.7-14.4 fcym=485) PLATELET COUNT (BEAKER) (test gros=859) 242 K/CU MM 150-450 MEAN PLATELET VOLUME (BEAKER) (test fptf=793) 8.4 fL 9.4-12.3 NUCLEATED RED BLOOD CELLS (BEAKER) (test 0 /100 WBC 0-0 oixh=346) NEUTROPHILS RELATIVE PERCENT (BEAKER) (test 49 % nhlq=325) LYMPHOCYTES RELATIVE PERCENT (BEAKER) (test 40 % kjkf=912) MONOCYTES RELATIVE PERCENT (BEAKER) (test 7 % laaf=643) EOSINOPHILS RELATIVE PERCENT (BEAKER) (test 4 % rvdb=758) BASOPHILS RELATIVE PERCENT (BEAKER) (test 0 % jelx=222) NEUTROPHILS ABSOLUTE COUNT (BEAKER) (test 3.25 K/ L 1.56-6.13 ezfa=547) LYMPHOCYTES ABSOLUTE COUNT (BEAKER) (test 2.68 K/ L 1.18-3.74 whay=461) MONOCYTES ABSOLUTE COUNT (BEAKER) (test 0.44 K/ L 0.24-0.36 oukp=048) EOSINOPHILS ABSOLUTE COUNT (BEAKER) (test 0.28 K/ L 0.04-0.36 jtyg=972) BASOPHILS ABSOLUTE COUNT (BEAKER) (test 0.03 K/ L 0.01-0.08 gloq=094) IMMATURE GRANULOCYTES-RELATIVE PERCENT (BEAKER) 0 % 0-1 (test fzal=2632) TISSUE [id number] 15:51:00Surgical Pathology Report Case: [id number] Authorizing Provider: Bartolo Quinn Collected: 11/10/2018 1543 Ordering Location: [address] Received: 11/12/2018 0813 Service Pathologist: Linda [...] CRYPT DISTORTION Signing Pathologist Direct Phone Line: [phone] signed by Linda Mullen MD on 11/12/2018 at 3:51 PMPatient's history of Crohn's disease is noted. The current sampling shows no significant active or chronic colitis. This may represent complete histologic resolution following treatment. Clinical and endoscopic correlation is recommended.[id number] and postop diagnosis: diarrhea A. Neoterminal ileum [...] E1. CG/ pl Performed.STOOL CULTURE + SHIGA [id number] 08:26:00 Test Item Value Reference Range Comments CULTURE (BEAKER) (test No Salmonella, Shigella or bkid=9357) Campylobacter isolated GI PATHOGEN PROFILE BY [id number] 08:20:00 Test Item Value Reference Range Comments CAMPYLOBACTER (PCR) (test mlab=1920141) Not detected Not detected PLESIOMONAS SHIGELLOIDES (PCR) (test Not detected Not detected moge=4538483) SALMONELLA (PCR) (test dpqk=7382064) Not detected Not detected YERSINIA ENTEROCOLITICA (PCR) (test Not detected Not detected fypc=5513490) VIBRIO CHOLERAE (PCR) (test opyd=9831459) Not detected Not detected ENTEROAGGREGATIVE E. COLI (EAEC) BY PCR (test Not detected Not detected cazz=8349417) ENTEROPATHOGENIC E. COLI (EPEC) BY PCR (test Not detected Not detected ybhh=1728493) ENTEROTOXIGENIC E. COLI (ETEC) LT/ST BY PCR Not detected Not detected (test kbqh=1540304) SHIGA-LIKE TOXIN-PRODUCING E. COLI (STEC) Not detected Not detected STX1/STX2 (test vloa=7720514) E. COLI O157 (PCR) (test twbu=7493271) Not detected SHIGELLA/ENTEROINVASIVE E. COLI (EIEC) BY PCR Not detected Not detected (test flbc=0297412) CRYPTOSPORIDIUM (PCR) (test dmsd=9040247) Not detected Not detected CYCLOSPORA CAYETANENSIS (PCR) (test Not detected Not detected uqmt=4256072) ENTAMOEBA HISTOLYTICA (PCR) (test wwom=2672673) Not detected Not detected GIARDIA LAMBLIA (PCR) (test ouuw=2558619) Not detected Not detected ADENOVIRUS F 40/41 (PCR) (test toxz=3613690) Not detected Not detected ASTROVIRUS (PCR) (test xyoc=5115043) Not detected Not detected NOROVIRUS GI/GII (PCR) (test qqjs=4985429) Not detected Not detected ROTAVIRUS A (PCR) (test pqgs=4260592) Not detected Not detected SAPOVIRUS (I, II, IV, V) BY PCR (test Not detected Not detected obpa=5573908) VIBRIO (PARAHAEMOLYTICUS, VULNIFICUS) (test Not detected Not detected mpgo=4624785) Other viruses, parasites and bacteria not targeted by this PCR panel cannot be excluded; therefore clinical correlation and follow up of serology, culture results, and other molecular studies is required. The results are not intended to be used as the sole means for clinical diagnosis or patient management decisions. This sample was tested at the [facility] Molecular Diagnostics Laboratory using the [employer] Gastrointestinal Panel. It is FDA cleared and has been verified and approved by the [facility] Molecular Diagnostics [facility] for clinical use. This laboratory is CLIA-certified and College ofAmerican Pathologists (CAP)-accredited to perform high complexity testing.[id number] 06:24:00 Test Item Value Reference Range Comments CORTISOL, TOTAL (BEAKER) (test tigp=4046) < ug/dL 3.7-19.4 BASIC METABOLIC [id number] 05:50:00 Test Item Value Reference Range Comments SODIUM (BEAKER) (test 142 meq/L 136-145 glgm=563) POTASSIUM (BEAKER) (test 4.3 meq/L 3.5-5.1 Specimen slightly emue=901) hemolyzed CHLORIDE (BEAKER) (test 114 meq/L 98-107 dggp=942) CO2 (BEAKER) (test 21 meq/L 22-29 opfg=079) BLOOD UREA NITROGEN 3 mg/dL 7-21 (BEAKER) (test gcnr=475) CREATININE (BEAKER) (test 0.66 mg/dL 0.57-1.25 Specimen slightly xtsk=239) hemolyzed GLUCOSE RANDOM (BEAKER) 84 mg/dL 70-105 (test ahqn=406) CALCIUM (BEAKER) (test 8.6 mg/dL 8.4-10.2 mfnw=957) EGFR (BEAKER) (test 96 mL/min/1.73 sq m ESTIMATED GFR IS NOT akfa=2255) ACCURATE CREATININE CLEARANCE IN PREDICTING GLOMERULAR FILTRATION RATE. ESTIMATED GFR IS NOT APPLICABLE FOR DIALYSIS PATIENTS. SHIGA TOXIN [id number] 14:16:00 Test Item Value Reference Range Comments SHIGA TOXIN 1 (BEAKER) (test ioux=4883) Not detected Not detected SHIGA TOXIN 2 (BEAKER) (test twbr=8693) Not detected Not detected STOOL PATH [id number] 10:08:00 Test Item Value Reference Range Comments PATHOGEN EXAM CHARGED (BEAKER) (test xxtj=7698) Done TSH/FREE T4 IF [id number] 05:59:00 Test Item Value Reference Range Comments THYROID STIMULATING HORMONE (BEAKER) (test 2.84 uIU/mL 0.35-4.94 mkfr=889) BASIC METABOLIC [id number] 05:38:00 Test Item Value Reference Range Comments SODIUM (BEAKER) (test 135 meq/L 136-145 pvby=949) POTASSIUM (BEAKER) (test 4.0 meq/L 3.5-5.1 cenz=910) CHLORIDE (BEAKER) (test 106 meq/L 98-107 ngye=067) CO2 (BEAKER) (test 22 meq/L 22-29 phwt=411) BLOOD UREA NITROGEN 5 mg/dL 7-21 (BEAKER) (test qrin=002) CREATININE (BEAKER) (test 0.68 mg/dL 0.57-1.25 yepj=386) GLUCOSE RANDOM (BEAKER) 84 mg/dL 70-105 (test gcpp=885) CALCIUM (BEAKER) (test 8.2 mg/dL 8.4-10.2 aaub=837) EGFR (BEAKER) (test 93 mL/min/1.73 sq m ESTIMATED GFR IS NOT pzmc=1214) ACCURATE CREATININE CLEARANCE IN PREDICTING GLOMERULAR FILTRATION RATE. ESTIMATED GFR IS NOT APPLICABLE FOR DIALYSIS PATIENTS. RAD, ABDOMEN/KUB, 1 VIEW [id number] 14:37:00Reason for exam:->post- obstructive diarrheaShould this be [...] Verified Date/Time : 11/07/2018 14:37:57 Reading Location: [address] Consult Reading Room CT, [id number] 14:25:00FINAL REPORT TECHNIQUE: CT of the abdomen [...] MDReport Verified Date/Time: 2018 14:25:25 Reading Location: [facility] B1 C013Y CT Body Reading Room CBC W/ PLT COUNT & AUTO [id number] 13:14:00 Test Item Value Reference Range Comments WHITE BLOOD CELL COUNT (BEAKER) (test eyrl=311) 7.1 K/ L 3.5-10.5 RED BLOOD CELL COUNT (BEAKER) (test bmam=192) 4.42 M/ L 3.93-5.22 HEMOGLOBIN (BEAKER) (test nrbg=679) 13.0 GM/DL 11.2-15.7 HEMATOCRIT (BEAKER) (test pwer=646) 41.6 % 34.1-44.9 MEAN CORPUSCULAR VOLUME (BEAKER) (test thcw=246) 94.1 fL 79.4-94.8 MEAN CORPUSCULAR HEMOGLOBIN (BEAKER) (test 29.4 pg 25.6-32.2 hcqg=350) MEAN CORPUSCULAR HEMOGLOBIN CONC (BEAKER) (test 31.3 GM/DL 32.2-35.5 ireb=325) RED CELL DISTRIBUTION WIDTH (BEAKER) (test 15.2 % 11.7-14.4 voxr=703) PLATELET COUNT (BEAKER) (test puaq=802) 280 K/CU MM 150-450 MEAN PLATELET VOLUME (BEAKER) (test mbmt=171) 8.3 fL 9.4-12.3 NUCLEATED RED BLOOD CELLS (BEAKER) (test 0 /100 WBC 0-0 bzsm=175) (CELLAVISION MANUAL DIFF)2018-11-07 13:14:00 Test Item Value Reference Range Comments NEUTROPHILS - REL (CELLAVISION)(BEAKER) (test 83 % ptfk=9929) LYMPHOCYTES - REL (CELLAVISION)(BEAKER) (test 13 % zmgx=4423) MONOCYTES - REL (CELLAVISION)(BEAKER) (test 4 % botf=5183) NEUTROPHILS - ABS (CELLAVISION)(BEAKER) (test 5.89 K/ul 1.56-6.13 zgdk=3883) LYMPHOCYTES - ABS (CELLAVISION)(BEAKER) (test 0.92 K/ul 1.18-3.74 fpco=1989) MONOCYTES - ABS (CELLAVISION)(BEAKER) (test 0.28 K/uL 0.24-0.36 mrgq=1313) TOTAL COUNTED (BEAKER) (test aoyf=2416) 100 RBC MORPHOLOGY (BEAKER) (test bvyq=161) Normal WBC MORPHOLOGY (BEAKER) (test absu=700) Normal PLT MORPHOLOGY (BEAKER) (test ohfk=858) Normal ARTIFACT (CELLAVISION)(BEAKER) (test liar=7897) Present PLATELET CONCENTRATION (CELLAVISION)(BEAKER) (test Adequate obin=4355) Received comment: User comments: Slide comments:C. DIFFICILE GDH [id number] 12:53:00 Test Item Value Reference Range Comments CDT TOXIN (test Negative Negative zrbb=[id number]) CDT GDH ANTIGEN (test Negative Negative No indication of Clostridium fanl=[id number]) difficile infection and no colonization. Discontinue enteric isolation and therapy. Testing performed by [employer] Rapid Cassette Assay. For GDH, published sensitivity of the assay is 98.7% compared to cytotoxicity testing. For Toxin AB, published sensitivity is 87.8% and specificity 99.4% compared to cytotoxicity testing.Verification of kit performance was done by the [facility] Microbiology Lab prior to clinical use.C-REACTIVE [id number] 06:53:00 Test Item Value Reference Range Comments C-REACTIVE PROTEIN (BEAKER) (test haou=021) 0.37 mg/dL 0.00-0.50 BASIC METABOLIC [id number] 06:41:00 Test Item Value Reference Range Comments SODIUM (BEAKER) (test 135 meq/L 136-145 jjcz=736) POTASSIUM (BEAKER) (test 4.3 meq/L 3.5-5.1 frvm=321) CHLORIDE (BEAKER) (test 104 meq/L 98-107 zxhw=236) CO2 (BEAKER) (test 21 meq/L 22-29 ghon=994) BLOOD UREA NITROGEN 14 mg/dL 7-21 (BEAKER) (test xnzw=923) CREATININE (BEAKER) (test 0.83 mg/dL 0.57-1.25 jche=636) GLUCOSE RANDOM (BEAKER) 160 mg/dL 70-105 (test hflv=361) CALCIUM (BEAKER) (test 9.0 mg/dL 8.4-10.2 vgue=605) EGFR (BEAKER) (test 74 mL/min/1.73 sq m ESTIMATED GFR IS NOT znhc=3779) ACCURATE CREATININE CLEARANCE IN PREDICTING GLOMERULAR FILTRATION RATE. ESTIMATED GFR IS NOT APPLICABLE FOR DIALYSIS PATIENTS. CT, [id number] 09:48:00FINAL REPORT CT Abdomen And Pelvis with [...] Melony Henriquez MDReport Verified Date/Time: 09/20/2018 09:48:51 [facility], BONE DENSITY [id number] 13:22 :00Reason for Exam:->crohn's disease of both [...] for bone mineral density as provided by chief science officer is 0.023 g/cm2 for lumbar spine and [...] MDReport Verified Date/Time: 2018 13:22:29 01: 22 [id number] 07:02:00 Test Item Value Reference Range Comments PHOSPHORUS (BEAKER) (test huhy=244) 2.9 mg/dL 2.3-4.7 [id number] 07:02:00 Test Item Value Reference Range Comments MAGNESIUM (BEAKER) (test nnuy=407) 1.9 mg/dL 1.6-2.6 BASIC METABOLIC [id number] 07:02:00 Test Item Value Reference Range Comments SODIUM (BEAKER) (test 139 meq/L 136-145 ptnz=527) POTASSIUM (BEAKER) (test 4.0 meq/L 3.5-5.1 aaxu=057) CHLORIDE (BEAKER) (test 108 meq/L 98-107 owdl=561) CO2 (BEAKER) (test 26 meq/L 22-29 nuwn=563) BLOOD UREA NITROGEN 6 mg/dL 7-21 (BEAKER) (test zdem=527) CREATININE (BEAKER) (test 0.68 mg/dL 0.57-1.25 ktfr=490) GLUCOSE RANDOM (BEAKER) 87 mg/dL 70-105 (test rirm=121) CALCIUM (BEAKER) (test 8.5 mg/dL 8.4-10.2 hiqf=784) EGFR (BEAKER) (test 93 mL/min/1.73 sq m ESTIMATED GFR IS NOT ncom=9843) ACCURATE CREATININE CLEARANCE IN PREDICTING GLOMERULAR FILTRATION RATE. ESTIMATED GFR IS NOT APPLICABLE FOR DIALYSIS PATIENTS. CBC (HEMOGRAM ONLY)2018-08-23 06:39:00 Test Item Value Reference Range Comments WHITE BLOOD CELL COUNT (BEAKER) (test mmyl=992) 5.5 K/ L 3.5-10.5 RED BLOOD CELL COUNT (BEAKER) (test uefv=237) 3.31 M/ L 3.93-5.22 HEMOGLOBIN (BEAKER) (test qxwk=126) 10.4 GM/DL 11.2-15.7 HEMATOCRIT (BEAKER) (test srvh=328) 34.9 % 34.1-44.9 MEAN CORPUSCULAR VOLUME (BEAKER) (test ndlx=623) 105.4 fL 79.4-94.8 MEAN CORPUSCULAR HEMOGLOBIN (BEAKER) (test 31.4 pg 25.6-32.2 brex=742) MEAN CORPUSCULAR HEMOGLOBIN CONC (BEAKER) (test 29.8 GM/DL 32.2-35.5 eula=874) RED CELL DISTRIBUTION WIDTH (BEAKER) (test 15.4 % 11.7-14.4 mxyt=190) PLATELET COUNT (BEAKER) (test szyc=613) 185 K/CU MM 150-450 MEAN PLATELET VOLUME (BEAKER) (test enlt=086) 8.9 fL 9.4-12.3 NUCLEATED RED BLOOD CELLS (BEAKER) (test 0 /100 WBC 0-0 mzlw=501) TISSUE [id number] 13:47:00Surgical Pathology Report Case: [id number] Authorizing Provider: Jani Alejandro MD Collected: 08/20/2018 1003 Ordering Location: [facility] PERI[facility] Received: 08/20/2018 1118 SERVICES Pathologist: Linda Mullen MD Specimen: Large Intestine, Colon - Right/Ascending , RIGHT COLON AND SMALL BOWEL A. COLON, RIGHT/ASCENDING, RIGHT HEMICOLECTOMY: - CHRONIC ACTIVE ENTERITIS COMPATIBLE WITH CROHN'S DISEASE (SEE COMMENT) - NEGATIVE FOR GRANULOMAS (OR) VIRAL CYTOPATHIC CHANGES - NEGATIVE FOR DYSPLASIA (OR) MALIGNANCY - MARGINS, UNREMARKABLE Signing Pathologist Direct Phone Line: [phone] signed by Linda Mullen MD on 08/22/2018 [...] cytopathic changes are seen.IDC: Dr. Leslie Carballo [email or web address].[id number]'s disease of small intestine without complication Right [...] folding and no masses or lesions identified. [place] [employer] sections are submitted in 10 cassettes as follows.Ink code: Blue-one marginBlack-margin closest to anastomotic siteSection code: A1 - field sales representative sections of both margins, differentially inked per the ink code A2-A5 - entire sections of ulcerative areaA6 - entire sections of hemorrhagic mucosal areaA7-A10 - field sales representative sections of mucosaFR/ewPerformed.[id number] 06:10:00 Test Item Value Reference Range Comments PHOSPHORUS (BEAKER) (test dhkt=332) 2.3 mg/dL 2.3-4.7 [id number] 06:10:00 Test Item Value Reference Range Comments MAGNESIUM (BEAKER) (test ttew=268) 1.7 mg/dL 1.6-2.6 BASIC METABOLIC [id number] 06:10:00 Test Item Value Reference Range Comments SODIUM (BEAKER) (test 137 meq/L 136-145 ndkj=135) POTASSIUM (BEAKER) (test 3.8 meq/L 3.5-5.1 pygg=742) CHLORIDE (BEAKER) (test 105 meq/L 98-107 aeuf=737) CO2 (BEAKER) (test 25 meq/L 22-29 oibr=323) BLOOD UREA NITROGEN 5 mg/dL 7-21 (BEAKER) (test rhxm=392) CREATININE (BEAKER) (test 0.73 mg/dL 0.57-1.25 kqaj=748) GLUCOSE RANDOM (BEAKER) 105 mg/dL 70-105 (test mzsa=994) CALCIUM (BEAKER) (test 8.6 mg/dL 8.4-10.2 vmxf=185) EGFR (BEAKER) (test 86 mL/min/1.73 sq m ESTIMATED GFR IS NOT nlcl=6771) ACCURATE CREATININE CLEARANCE IN PREDICTING GLOMERULAR FILTRATION RATE. ESTIMATED GFR IS NOT APPLICABLE FOR DIALYSIS PATIENTS. CBC (HEMOGRAM ONLY)2018-08-22 05:31:00 Test Item Value Reference Range Comments WHITE BLOOD CELL COUNT (BEAKER) (test sqae=724) 7.8 K/ L 3.5-10.5 RED BLOOD CELL COUNT (BEAKER) (test rbvy=541) 3.65 M/ L 3.93-5.22 HEMOGLOBIN (BEAKER) (test jsgm=401) 11.5 GM/DL 11.2-15.7 HEMATOCRIT (BEAKER) (test fggv=883) 37.1 % 34.1-44.9 MEAN CORPUSCULAR VOLUME (BEAKER) (test hmed=948) 101.6 fL 79.4-94.8 MEAN CORPUSCULAR HEMOGLOBIN (BEAKER) (test 31.5 pg 25.6-32.2 icaf=393) MEAN CORPUSCULAR HEMOGLOBIN CONC (BEAKER) (test 31.0 GM/DL 32.2-35.5 buoa=858) RED CELL DISTRIBUTION WIDTH (BEAKER) (test 15.2 % 11.7-14.4 uhit=971) PLATELET COUNT (BEAKER) (test pbcf=222) 215 K/CU MM 150-450 MEAN PLATELET VOLUME (BEAKER) (test njvb=402) 8.8 fL 9.4-12.3 NUCLEATED RED BLOOD CELLS (BEAKER) (test 0 /100 WBC 0-0 kbhu=638) [id number] 03:34:00 Test Item Value Reference Range Comments PHOSPHORUS (BEAKER) (test kzvj=869) 2.5 mg/dL 2.3-4.7 [id number] 03:34:00 Test Item Value Reference Range Comments MAGNESIUM (BEAKER) (test ekpc=160) 1.9 mg/dL 1.6-2.6 BASIC METABOLIC [id number] 03:34:00 Test Item Value Reference Range Comments SODIUM (BEAKER) (test 138 meq/L 136-145 kxgw=844) POTASSIUM (BEAKER) (test 3.9 meq/L 3.5-5.1 fqon=657) CHLORIDE (BEAKER) (test 108 meq/L 98-107 xxln=627) CO2 (BEAKER) (test 25 meq/L 22-29 avvk=144) BLOOD UREA NITROGEN 5 mg/dL 7-21 (BEAKER) (test kjco=357) CREATININE (BEAKER) (test 0.67 mg/dL 0.57-1.25 deqk=216) GLUCOSE RANDOM (BEAKER) 122 mg/dL 70-105 (test wwco=508) CALCIUM (BEAKER) (test 8.4 mg/dL 8.4-10.2 htga=593) EGFR (BEAKER) (test 95 mL/min/1.73 sq m ESTIMATED GFR IS NOT bbyi=2951) ACCURATE CREATININE CLEARANCE IN PREDICTING GLOMERULAR FILTRATION RATE. ESTIMATED GFR IS NOT APPLICABLE FOR DIALYSIS PATIENTS. CBC (HEMOGRAM ONLY)2018-08-21 03:17:00 Test Item Value Reference Range Comments WHITE BLOOD CELL COUNT (BEAKER) (test hwwk=535) 7.8 K/ L 3.5-10.5 RED BLOOD CELL COUNT (BEAKER) (test bdhi=401) 3.65 M/ L 3.93-5.22 HEMOGLOBIN (BEAKER) (test dbbc=899) 11.4 GM/DL 11.2-15.7 HEMATOCRIT (BEAKER) (test ksbm=877) 36.3 % 34.1-44.9 MEAN CORPUSCULAR VOLUME (BEAKER) (test ffql=387) 99.5 fL 79.4-94.8 MEAN CORPUSCULAR HEMOGLOBIN (BEAKER) (test 31.2 pg 25.6-32.2 hmzu=430) MEAN CORPUSCULAR HEMOGLOBIN CONC (BEAKER) (test 31.4 GM/DL 32.2-35.5 ubqx=363) RED CELL DISTRIBUTION WIDTH (BEAKER) (test 14.9 % 11.7-14.4 vbcb=251) PLATELET COUNT (BEAKER) (test qhrm=538) 204 K/CU MM 150-450 MEAN PLATELET VOLUME (BEAKER) (test poyi=899) 8.5 fL 9.4-12.3 NUCLEATED RED BLOOD CELLS (BEAKER) (test 0 /100 WBC 0-0 xbcq=683) POCT-GLUCOSE [id number] 11:42:00 Test Item Value Reference Range Comments POC-GLUCOSE METER (BEAKER) 129 mg/dL 70-110 TESTED AT [address] (test bzfv=3069) [facility] [address] POCT-GLUCOSE [id number] 06:28:00 Test Item Value Reference Range Comments POC-GLUCOSE METER (BEAKER) 102 mg/dL 70-110 TESTED AT [address] (test ibbw=3226) [facility] [address] [address], [id number] 15:41:00FINAL REPORT CT abdomen and pelvis with [...] MDReport Verified Date/Time: 08/17/2018 15:41:17 Reading Location: [facility] Diagnostic Imaging Reading Room - [place] [address] STOOL CULTURE + SHIGA [id number] 15:37:00 Test Item Value Reference Range Comments CULTURE (BEAKER) (test No Salmonella, Shigella or akqt=4880) Campylobacter isolated POCT-GLUCOSE [id number] 08:25:00 Test Item Value Reference Range Comments POC-GLUCOSE METER (BEAKER) 197 mg/dL 70-110 TESTED AT [facility] [address] [facility] (test nomk=5374) [facility] [address] [id number] 05:59:00 Test Item Value Reference Range Comments PHOSPHORUS (BEAKER) (test amdz=309) 3.6 mg/dL 2.3-4.7 [id number] 05:59:00 Test Item Value Reference Range Comments MAGNESIUM (BEAKER) (test zutt=467) 2.3 mg/dL 1.6-2.6 BASIC METABOLIC [id number] 05:59:00 Test Item Value Reference Range Comments SODIUM (BEAKER) (test 137 meq/L 136-145 dnvx=810) POTASSIUM (BEAKER) (test 4.7 meq/L 3.5-5.1 zxio=358) CHLORIDE (BEAKER) (test 104 meq/L 98-107 psue=276) CO2 (BEAKER) (test 24 meq/L 22-29 njcp=976) BLOOD UREA NITROGEN 4 mg/dL 7-21 (BEAKER) (test sezd=612) CREATININE (BEAKER) (test 0.74 mg/dL 0.57-1.25 igoj=684) GLUCOSE RANDOM (BEAKER) 144 mg/dL 70-105 (test tuxj=494) CALCIUM (BEAKER) (test 9.0 mg/dL 8.4-10.2 zrxt=840) EGFR (BEAKER) (test 84 mL/min/1.73 sq m ESTIMATED GFR IS NOT orux=3620) ACCURATE CREATININE CLEARANCE IN PREDICTING GLOMERULAR FILTRATION RATE. ESTIMATED GFR IS NOT APPLICABLE FOR DIALYSIS PATIENTS. HEPATIC FUNCTION [id number] 05:59:00 Test Item Value Reference Range Comments TOTAL PROTEIN (BEAKER) (test ljbi=577) 6.3 gm/dL 6.0-8.3 ALBUMIN (BEAKER) (test qkcz=8262) 3.9 g/dL 3.5-5.0 BILIRUBIN TOTAL (BEAKER) (test hzla=131) 0.3 mg/dL 0.2-1.2 BILIRUBIN DIRECT (BEAKER) (test cueg=508) 0.1 mg/dL 0.1-0.5 ALKALINE PHOSPHATASE (BEAKER) (test xwdv=314) 68 U/L 40-150 AST (SGOT) (BEAKER) (test gnnd=883) 23 U/L 5-34 ALT (SGPT) (BEAKER) (test mrpo=268) 41 U/L 6-55 POCT-GLUCOSE [id number] 21:05:00 Test Item Value Reference Range Comments POC-GLUCOSE METER (BEAKER) 148 mg/dL 70-110 TESTED AT [facility] [address] [facility] (test xlnl=9004) [facility] [address] C. DIFFICILE GDH [id number] 15:59:00 Test Item Value Reference Range Comments CDT TOXIN (test Negative Negative roua=[id number]) CDT GDH ANTIGEN (test Negative Negative No indication of Clostridium vnti=[id number]) difficile infection and no colonization. Discontinue enteric isolation and therapy. Testing performed by [employer] Rapid Cassette Assay. For GDH, published sensitivity of the assay is 98.7% compared to cytotoxicity testing. For Toxin AB, published sensitivity is 87.8% and specificity 99.4% compared to cytotoxicity testing.Verification of kit performance was done by the [facility] Microbiology Lab prior to clinical use.SHIGA TOXIN [id number] 14:22:00 Test Item Value Reference Range Comments SHIGA TOXIN 1 (BEAKER) (test doto=5995) Not detected Not detected SHIGA TOXIN 2 (BEAKER) (test kmoj=4897) Not detected Not detected POCT-GLUCOSE [id number] 13:13:00 Test Item Value Reference Range Comments POC-GLUCOSE METER (BEAKER) 119 mg/dL 70-110 TESTED AT [facility] [address] [place] [address] (test alpi=8080) [place] [id number] STOOL PATH [id number] 10:03:00 Test Item Value Reference Range Comments PATHOGEN EXAM CHARGED (BEAKER) (test ebkb=6342) Done POCT-GLUCOSE [id number] 09:13:00 Test Item Value Reference Range Comments POC-GLUCOSE METER (BEAKER) 111 mg/dL 70-110 TESTED AT [address] (test mkoo=8148) [facility] [address] [id number] 06:09:00 Test Item Value Reference Range Comments PREALBUMIN (BEAKER) (test ncac=760) 36 mg/dL 14-45 CBC W/PLT COUNT & AUTO [id number] 06:02:00 Test Item Value Reference Range Comments WHITE BLOOD CELL COUNT (BEAKER) (test gjhi=838) 8.2 K/ L 3.5-10.5 RED BLOOD CELL COUNT (BEAKER) (test quae=777) 4.02 M/ L 3.93-5.22 HEMOGLOBIN (BEAKER) (test pryd=502) 12.5 GM/DL 11.2-15.7 HEMATOCRIT (BEAKER) (test xwle=789) 39.7 % 34.1-44.9 MEAN CORPUSCULAR VOLUME (BEAKER) (test mgqw=534) 98.8 fL 79.4-94.8 MEAN CORPUSCULAR HEMOGLOBIN (BEAKER) (test 31.1 pg 25.6-32.2 ksdb=387) MEAN CORPUSCULAR HEMOGLOBIN CONC (BEAKER) (test 31.5 GM/DL 32.2-35.5 fguk=993) RED CELL DISTRIBUTION WIDTH (BEAKER) (test 14.8 % 11.7-14.4 krgb=794) PLATELET COUNT (BEAKER) (test gusi=975) 322 K/CU MM 150-450 MEAN PLATELET VOLUME (BEAKER) (test shal=421) 8.6 fL 9.4-12.3 NUCLEATED RED BLOOD CELLS (BEAKER) (test 0 /100 WBC 0-0 mksd=045) NEUTROPHILS RELATIVE PERCENT (BEAKER) (test 83 % azez=060) LYMPHOCYTES RELATIVE PERCENT (BEAKER) (test 14 % vlwa=776) MONOCYTES RELATIVE PERCENT (BEAKER) (test 2 % mtjw=412) EOSINOPHILS RELATIVE PERCENT (BEAKER) (test 0 % ncsr=328) BASOPHILS RELATIVE PERCENT (BEAKER) (test 0 % hhqf=769) NEUTROPHILS ABSOLUTE COUNT (BEAKER) (test 6.83 K/ L 1.56-6.13 vyjz=455) LYMPHOCYTES ABSOLUTE COUNT (BEAKER) (test 1.16 K/ L 1.18-3.74 svjz=366) MONOCYTES ABSOLUTE COUNT (BEAKER) (test 0.16 K/ L 0.24-0.36 iiuz=096) EOSINOPHILS ABSOLUTE COUNT (BEAKER) (test 0.00 K/ L 0.04-0.36 jnie=022) BASOPHILS ABSOLUTE COUNT (BEAKER) (test 0.01 K/ L 0.01-0.08 obrx=884) IMMATURE GRANULOCYTES-RELATIVE PERCENT (BEAKER) 1 % 0-1 (test orwh=0132) [id number] 05:52:00 Test Item Value Reference Range Comments PHOSPHORUS (BEAKER) (test nxvx=910) 4.0 mg/dL 2.3-4.7 [id number] 05:52:00 Test Item Value Reference Range Comments MAGNESIUM (BEAKER) (test rdlv=667) 2.3 mg/dL 1.6-2.6 BASIC METABOLIC [id number] 05:52:00 Test Item Value Reference Range Comments SODIUM (BEAKER) (test 139 meq/L 136-145 iabv=743) POTASSIUM (BEAKER) (test 4.4 meq/L 3.5-5.1 jpzz=623) CHLORIDE (BEAKER) (test 104 meq/L 98-107 cdoq=101) CO2 (BEAKER) (test 25 meq/L 22-29 zwxx=744) BLOOD UREA NITROGEN 5 mg/dL 7-21 (BEAKER) (test ntzz=776) CREATININE (BEAKER) (test 0.78 mg/dL 0.57-1.25 saau=276) GLUCOSE RANDOM (BEAKER) 172 mg/dL 70-105 (test poyy=310) CALCIUM (BEAKER) (test 9.0 mg/dL 8.4-10.2 khmy=230) EGFR (BEAKER) (test 80 mL/min/1.73 sq m ESTIMATED GFR IS NOT aqop=2453) ACCURATE CREATININE CLEARANCE IN PREDICTING GLOMERULAR FILTRATION RATE. ESTIMATED GFR IS NOT APPLICABLE FOR DIALYSIS PATIENTS. HEPATIC FUNCTION [id number] 05:52:00 Test Item Value Reference Range Comments TOTAL PROTEIN (BEAKER) (test turb=832) 6.4 gm/dL 6.0-8.3 ALBUMIN (BEAKER) (test rdhj=4128) 3.9 g/dL 3.5-5.0 BILIRUBIN TOTAL (BEAKER) (test ovkd=876) 0.2 mg/dL 0.2-1.2 BILIRUBIN DIRECT (BEAKER) (test wboc=018) 0.1 mg/dL 0.1-0.5 ALKALINE PHOSPHATASE (BEAKER) (test hbcg=109) 68 U/L 40-150 AST (SGOT) (BEAKER) (test uvau=073) 12 U/L 5-34 ALT (SGPT) (BEAKER) (test fwnr=236) 29 U/L 6-55 C-REACTIVE [id number] 05:52:00 Test Item Value Reference Range Comments C-REACTIVE PROTEIN (BEAKER) (test beug=322) 0.22 mg/dL 0.00-0.50 POCT-GLUCOSE [id number] 23:39:00 Test Item Value Reference Range Comments POC-GLUCOSE METER (BEAKER) 122 mg/dL 70-110 TESTED AT [facility] [address] [place] [address] (test ezeo=7485) [facility] [address] [address], [id number] 04:05:00FINAL REPORT CLINICAL HISTORY: Acute abdominal pain, [...] MDReport Verified Date/Time: 07/21/2018 04:05:05 Reading Location: [address] Reading Room [id number] 22:00:00 Test Item Value Reference Range Comments LIPASE (BEAKER) (test ltzi=665) 12 U/L 8-78 COMPREHENSIVE METABOLIC [id number] 22:00:00 Test Item Value Reference Range Comments TOTAL PROTEIN (BEAKER) 5.6 gm/dL 6.0-8.3 (test islg=964) ALBUMIN (BEAKER) (test 3.5 g/dL 3.5-5.0 poja=9734) ALKALINE PHOSPHATASE 54 U/L 40-150 (BEAKER) (test cynl=026) BILIRUBIN TOTAL (BEAKER) 0.2 mg/dL 0.2-1.2 (test mqmk=785) SODIUM (BEAKER) (test 143 meq/L 136-145 ynsv=756) POTASSIUM (BEAKER) (test 3.9 meq/L 3.5-5.1 sgll=813) CHLORIDE (BEAKER) (test 106 meq/L 98-107 gswf=264) CO2 (BEAKER) (test 27 meq/L 22-29 hvwd=720) BLOOD UREA NITROGEN 12 mg/dL 7-21 (BEAKER) (test utrp=660) CREATININE (BEAKER) (test 0.76 mg/dL 0.57-1.25 wpza=010) GLUCOSE RANDOM (BEAKER) 84 mg/dL 70-105 (test pdna=770) CALCIUM (BEAKER) (test 8.5 mg/dL 8.4-10.2 rnyh=845) AST (SGOT) (BEAKER) (test 13 U/L 5-34 sgsx=013) ALT (SGPT) (BEAKER) (test 27 U/L 6-55 sfbb=373) EGFR (BEAKER) (test 82 mL/min/1.73 sq m ESTIMATED GFR IS NOT rrsv=7674) ACCURATE CREATININE CLEARANCE IN PREDICTING GLOMERULAR FILTRATION RATE. ESTIMATED GFR IS NOT APPLICABLE FOR DIALYSIS PATIENTS. [id number] 21:55:00 Test Item Value Reference Range Comments PARTIAL THROMBOPLASTIN TIME (BEAKER) (test 24.6 seconds 22.5-36.0 rhyc=537) PROTHROMBIN TIME/[id number] 21:53:00 Test Item Value Reference Range Comments PROTIME (BEAKER) (test bpoq=176) 13.2 seconds 11.7-14.7 INR (BEAKER) (test dera=584) 1.0 <=5.9 RECOMMENDED COUMADIN/WARFARIN INR THERAPY RANGESSTANDARD DOSE: 2.0 - 3.0 Includes: PROPHYLAXIS forvenous thrombosis, systemic embolization; TREATMENT for venous thrombosis and/or pulmonary embolus.HIGH RISK: Target INR is 2.5-3.5 for patients with mechanical heart valves.CBC W/PLT COUNT & AUTO [id number] 21:44:00 Test Item Value Reference Range Comments WHITE BLOOD CELL COUNT (BEAKER) (test mfbw=795) 10.8 K/ L 3.5-10.5 RED BLOOD CELL COUNT (BEAKER) (test wdlp=475) 3.58 M/ L 3.93-5.22 HEMOGLOBIN (BEAKER) (test enxa=736) 11.1 GM/DL 11.2-15.7 HEMATOCRIT (BEAKER) (test lgwq=911) 35.1 % 34.1-44.9 MEAN CORPUSCULAR VOLUME (BEAKER) (test lbni=371) 98.0 fL 79.4-94.8 MEAN CORPUSCULAR HEMOGLOBIN (BEAKER) (test 31.0 pg 25.6-32.2 bxny=053) MEAN CORPUSCULAR HEMOGLOBIN CONC (BEAKER) (test 31.6 GM/DL 32.2-35.5 qboz=435) RED CELL DISTRIBUTION WIDTH (BEAKER) (test 15.1 % 11.7-14.4 sjlt=614) PLATELET COUNT (BEAKER) (test xiem=300) 245 K/CU MM 150-450 MEAN PLATELET VOLUME (BEAKER) (test cryq=969) 8.6 fL 9.4-12.3 NUCLEATED RED BLOOD CELLS (BEAKER) (test 0 /100 WBC 0-0 xxfc=175) NEUTROPHILS RELATIVE PERCENT (BEAKER) (test 73 % hjwq=919) LYMPHOCYTES RELATIVE PERCENT (BEAKER) (test 20 % kinw=799) MONOCYTES RELATIVE PERCENT (BEAKER) (test 6 % yqzz=118) EOSINOPHILS RELATIVE PERCENT (BEAKER) (test 0 % xvga=357) BASOPHILS RELATIVE PERCENT (BEAKER) (test 0 % wbkd=446) NEUTROPHILS ABSOLUTE COUNT (BEAKER) (test 7.89 K/ L 1.56-6.13 eilz=759) LYMPHOCYTES ABSOLUTE COUNT (BEAKER) (test 2.13 K/ L 1.18-3.74 yabm=902) MONOCYTES ABSOLUTE COUNT (BEAKER) (test 0.65 K/ L 0.24-0.36 ldvt=029) EOSINOPHILS ABSOLUTE COUNT (BEAKER) (test 0.01 K/ L 0.04-0.36 yntp=767) BASOPHILS ABSOLUTE COUNT (BEAKER) (test 0.01 K/ L 0.01-0.08 fecd=147) IMMATURE GRANULOCYTES-RELATIVE PERCENT (BEAKER) 1 % 0-1 (test gxya=3930) TISSUE [id number] 09:23:00Surgical Pathology Report Case: [id number] Authorizing Provider: King Huynh MD Collected: 07/11/2018 0924 Ordering Location: [address] Received: 07/11/2018 1421 Service Pathologist: Linda [...] AND COMMENT) Signing Pathologist Direct Phone Line: [phone] signed by Linda Mullen MD on 07/12/2018 at 9:23 AMPatient's history of Crohn's disease is noted per Epic note dated 07/10/18. The current sampling shows no significant active or chronic colitis. This may represent complete histologic resolution following treatment. Clinical and endoscopic correlation is recommended.[id number] abdominal pain A. Random colon biopsy. B. [...] noted. No dysplasia or carcinoma is present.BLOOD [id number] 20:01:00 Test Item Value Reference Range Comments CULTURE (BEAKER) (test claa=5171) No growth in 5 days BLOOD [id number] 20:01:00 Test Item Value Reference Range Comments CULTURE (BEAKER) (test syna=2428) No growth in 5 days BASIC METABOLIC [id number] 04:55:00 Test Item Value Reference Range Comments SODIUM (BEAKER) (test 145 meq/L 136-145 fnbs=408) POTASSIUM (BEAKER) (test 4.0 meq/L 3.5-5.1 zffp=180) CHLORIDE (BEAKER) (test 111 meq/L 98-107 gzxz=600) CO2 (BEAKER) (test 27 meq/L 22-29 hkpo=942) BLOOD UREA NITROGEN 2 mg/dL 7-21 (BEAKER) (test gtqt=783) CREATININE (BEAKER) (test 0.68 mg/dL 0.57-1.25 futu=358) GLUCOSE RANDOM (BEAKER) 100 mg/dL 70-105 (test kvon=354) CALCIUM (BEAKER) (test 9.0 mg/dL 8.4-10.2 girw=658) EGFR (BEAKER) (test 93 mL/min/1.73 sq m ESTIMATED GFR IS NOT enww=6716) ACCURATE CREATININE CLEARANCE IN PREDICTING GLOMERULAR FILTRATION RATE. ESTIMATED GFR IS NOT APPLICABLE FOR DIALYSIS PATIENTS. CBC W/PLT COUNT & AUTO [id number] 04:37:00 Test Item Value Reference Range Comments WHITE BLOOD CELL COUNT (BEAKER) (test ubhc=567) 6.3 K/ L 3.5-10.5 RED BLOOD CELL COUNT (BEAKER) (test obqs=607) 3.92 M/ L 3.93-5.22 HEMOGLOBIN (BEAKER) (test nzfp=067) 12.0 GM/DL 11.2-15.7 HEMATOCRIT (BEAKER) (test dmdw=836) 38.3 % 34.1-44.9 MEAN CORPUSCULAR VOLUME (BEAKER) (test uucb=766) 97.7 fL 79.4-94.8 MEAN CORPUSCULAR HEMOGLOBIN (BEAKER) (test 30.6 pg 25.6-32.2 mpkk=666) MEAN CORPUSCULAR HEMOGLOBIN CONC (BEAKER) (test 31.3 GM/DL 32.2-35.5 jkjg=935) RED CELL DISTRIBUTION WIDTH (BEAKER) (test 13.5 % 11.7-14.4 wrqc=494) PLATELET COUNT (BEAKER) (test lrdh=825) 220 K/CU MM 150-450 MEAN PLATELET VOLUME (BEAKER) (test dvgz=658) 9.6 fL 9.4-12.3 NUCLEATED RED BLOOD CELLS (BEAKER) (test 0 /100 WBC 0-0 dwrz=386) NEUTROPHILS RELATIVE PERCENT (BEAKER) (test 76 % dnhu=500) LYMPHOCYTES RELATIVE PERCENT (BEAKER) (test 20 % ggjx=699) MONOCYTES RELATIVE PERCENT (BEAKER) (test 3 % ptue=170) EOSINOPHILS RELATIVE PERCENT (BEAKER) (test 0 % bbqs=828) BASOPHILS RELATIVE PERCENT (BEAKER) (test 0 % glqt=454) NEUTROPHILS ABSOLUTE COUNT (BEAKER) (test 4.80 K/ L 1.56-6.13 pvne=472) LYMPHOCYTES ABSOLUTE COUNT (BEAKER) (test 1.26 K/ L 1.18-3.74 eyom=258) MONOCYTES ABSOLUTE COUNT (BEAKER) (test 0.20 K/ L 0.24-0.36 nfca=455) EOSINOPHILS ABSOLUTE COUNT (BEAKER) (test 0.00 K/ L 0.04-0.36 ahgy=098) BASOPHILS ABSOLUTE COUNT (BEAKER) (test 0.01 K/ L 0.01-0.08 vphy=364) IMMATURE GRANULOCYTES-RELATIVE PERCENT (BEAKER) 1 % 0-1 (test azih=6813) BASIC METABOLIC [id number] 06:15:00 Test Item Value Reference Range Comments SODIUM (BEAKER) (test 144 meq/L 136-145 txut=287) POTASSIUM (BEAKER) (test 4.3 meq/L 3.5-5.1 Specimen slightly gnhv=484) hemolyzed CHLORIDE (BEAKER) (test 113 meq/L 98-107 iwlr=990) CO2 (BEAKER) (test 24 meq/L 22-29 chht=096) BLOOD UREA NITROGEN 3 mg/dL 7-21 (BEAKER) (test izpu=518) CREATININE (BEAKER) (test 0.72 mg/dL 0.57-1.25 Specimen slightly szmc=658) hemolyzed GLUCOSE RANDOM (BEAKER) 138 mg/dL 70-105 (test pjqb=544) CALCIUM (BEAKER) (test 9.3 mg/dL 8.4-10.2 groj=273) EGFR (BEAKER) (test 87 mL/min/1.73 sq m ESTIMATED GFR IS NOT bacf=9213) ACCURATE CREATININE CLEARANCE IN PREDICTING GLOMERULAR FILTRATION RATE. ESTIMATED GFR IS NOT APPLICABLE FOR DIALYSIS PATIENTS. CBC W/PLT COUNT & AUTO [id number] 06:06:00 Test Item Value Reference Range Comments WHITE BLOOD CELL COUNT (BEAKER) (test iqeq=168) 7.5 K/ L 3.5-10.5 RED BLOOD CELL COUNT (BEAKER) (test lqyq=536) 4.07 M/ L 3.93-5.22 HEMOGLOBIN (BEAKER) (test dojm=238) 12.9 GM/DL 11.2-15.7 HEMATOCRIT (BEAKER) (test sjoq=112) 40.3 % 34.1-44.9 MEAN CORPUSCULAR VOLUME (BEAKER) (test fouo=506) 99.0 fL 79.4-94.8 MEAN CORPUSCULAR HEMOGLOBIN (BEAKER) (test 31.7 pg 25.6-32.2 asuo=416) MEAN CORPUSCULAR HEMOGLOBIN CONC (BEAKER) (test 32.0 GM/DL 32.2-35.5 grsb=929) RED CELL DISTRIBUTION WIDTH (BEAKER) (test 13.3 % 11.7-14.4 xewd=911) PLATELET COUNT (BEAKER) (test gujw=793) 191 K/CU MM 150-450 MEAN PLATELET VOLUME (BEAKER) (test vgtm=551) 9.9 fL 9.4-12.3 NUCLEATED RED BLOOD CELLS (BEAKER) (test 0 /100 WBC 0-0 wqpx=551) NEUTROPHILS RELATIVE PERCENT (BEAKER) (test 70 % lsun=205) LYMPHOCYTES RELATIVE PERCENT (BEAKER) (test 24 % eiwi=407) MONOCYTES RELATIVE PERCENT (BEAKER) (test 5 % iwqn=100) EOSINOPHILS RELATIVE PERCENT (BEAKER) (test 0 % mdth=969) BASOPHILS RELATIVE PERCENT (BEAKER) (test 0 % uuwp=623) NEUTROPHILS ABSOLUTE COUNT (BEAKER) (test 5.25 K/ L 1.56-6.13 aeby=340) LYMPHOCYTES ABSOLUTE COUNT (BEAKER) (test 1.83 K/ L 1.18-3.74 pirs=474) MONOCYTES ABSOLUTE COUNT (BEAKER) (test 0.37 K/ L 0.24-0.36 nyoc=010) EOSINOPHILS ABSOLUTE COUNT (BEAKER) (test 0.02 K/ L 0.04-0.36 ghfu=010) BASOPHILS ABSOLUTE COUNT (BEAKER) (test 0.01 K/ L 0.01-0.08 ahvg=559) IMMATURE GRANULOCYTES-RELATIVE PERCENT (BEAKER) 0 % 0-1 (test xaxb=8973) STOOL CULTURE + SHIGA [id number] 12:15:00 Test Item Value Reference Range Comments CULTURE (BEAKER) (test No Salmonella, Shigella or mbww=1395) Campylobacter isolated BASIC METABOLIC [id number] 07:08:00 Test Item Value Reference Range Comments SODIUM (BEAKER) (test 143 meq/L 136-145 jlrn=382) POTASSIUM (BEAKER) (test 4.2 meq/L 3.5-5.1 fdxq=056) CHLORIDE (BEAKER) (test 111 meq/L 98-107 ftkl=017) CO2 (BEAKER) (test 25 meq/L 22-29 hrrf=546) BLOOD UREA NITROGEN 3 mg/dL 7-21 (BEAKER) (test zulg=817) CREATININE (BEAKER) (test 0.67 mg/dL 0.57-1.25 avum=209) GLUCOSE RANDOM (BEAKER) 106 mg/dL 70-105 (test wzbk=188) CALCIUM (BEAKER) (test 9.2 mg/dL 8.4-10.2 zand=384) EGFR (BEAKER) (test 95 mL/min/1.73 sq m ESTIMATED GFR IS NOT mrze=5829) ACCURATE CREATININE CLEARANCE IN PREDICTING GLOMERULAR FILTRATION RATE. ESTIMATED GFR IS NOT APPLICABLE FOR DIALYSIS PATIENTS. CBC W/PLT COUNT & AUTO [id number] 06:42:00 Test Item Value Reference Range Comments WHITE BLOOD CELL COUNT (BEAKER) (test ybdv=650) 6.2 K/ L 3.5-10.5 RED BLOOD CELL COUNT (BEAKER) (test ypwc=768) 4.29 M/ L 3.93-5.22 HEMOGLOBIN (BEAKER) (test jdjl=520) 13.4 GM/DL 11.2-15.7 HEMATOCRIT (BEAKER) (test ntdv=100) 41.1 % 34.1-44.9 MEAN CORPUSCULAR VOLUME (BEAKER) (test jhyt=594) 95.8 fL 79.4-94.8 MEAN CORPUSCULAR HEMOGLOBIN (BEAKER) (test 31.2 pg 25.6-32.2 ktsk=526) MEAN CORPUSCULAR HEMOGLOBIN CONC (BEAKER) (test 32.6 GM/DL 32.2-35.5 ebmo=941) RED CELL DISTRIBUTION WIDTH (BEAKER) (test 13.1 % 11.7-14.4 lftl=469) PLATELET COUNT (BEAKER) (test vbnb=963) 232 K/CU MM 150-450 MEAN PLATELET VOLUME (BEAKER) (test qitt=107) 9.0 fL 9.4-12.3 NUCLEATED RED BLOOD CELLS (BEAKER) (test 0 /100 WBC 0-0 xlst=237) NEUTROPHILS RELATIVE PERCENT (BEAKER) (test 67 % llml=649) LYMPHOCYTES RELATIVE PERCENT (BEAKER) (test 27 % rnkn=981) MONOCYTES RELATIVE PERCENT (BEAKER) (test 5 % wjzx=768) EOSINOPHILS RELATIVE PERCENT (BEAKER) (test 0 % kofh=293) BASOPHILS RELATIVE PERCENT (BEAKER) (test 0 % byji=419) NEUTROPHILS ABSOLUTE COUNT (BEAKER) (test 4.18 K/ L 1.56-6.13 arcj=193) LYMPHOCYTES ABSOLUTE COUNT (BEAKER) (test 1.69 K/ L 1.18-3.74 dyot=389) MONOCYTES ABSOLUTE COUNT (BEAKER) (test 0.29 K/ L 0.24-0.36 gwde=378) EOSINOPHILS ABSOLUTE COUNT (BEAKER) (test 0.01 K/ L 0.04-0.36 rbon=965) BASOPHILS ABSOLUTE COUNT (BEAKER) (test 0.02 K/ L 0.01-0.08 mjkc=274) IMMATURE GRANULOCYTES-RELATIVE PERCENT (BEAKER) 1 % 0-1 (test crxe=9197) CT, ABDOMEN - PELVIS, [id number] 14:17:00Reason for exam:-> Evaluation of small bowel [...] lesion demonstrated. Endplate degenerative change at L1-2 [id number] noted. There is an implanted pump in the right lower quadrant subcutaneous fat with a lead going to the thecal sac terminating at the T11 level. IMPRESSION: Evidence of acute colitis of the sigmoid colon. No small bowel enteritis demonstrated. No stricture, fistula, or intramesenteric abscess demonstrated. Signed: Vicente Montero MDReport Verified Date/Time: 07/08/2018 14:17:31 Reading Location: [facility] [id number] Ortho Consult Reading Room [facility] METABOLIC [id number] 06:53:00 Test Item Value Reference Range Comments SODIUM (BEAKER) (test 137 meq/L 136-145 cugp=616) POTASSIUM (BEAKER) (test 4.2 meq/L 3.5-5.1 kuhp=417) CHLORIDE (BEAKER) (test 105 meq/L 98-107 xqie=285) CO2 (BEAKER) (test 23 meq/L 22-29 svoz=989) BLOOD UREA NITROGEN 3 mg/dL 7-21 (BEAKER) (test hsji=763) CREATININE (BEAKER) (test 0.75 mg/dL 0.57-1.25 lcab=559) GLUCOSE RANDOM (BEAKER) 85 mg/dL 70-105 (test sqgh=442) CALCIUM (BEAKER) (test 8.6 mg/dL 8.4-10.2 xqnm=826) EGFR (BEAKER) (test 83 mL/min/1.73 sq m ESTIMATED GFR IS NOT yfqb=4943) ACCURATE CREATININE CLEARANCE IN PREDICTING GLOMERULAR FILTRATION RATE. ESTIMATED GFR IS NOT APPLICABLE FOR DIALYSIS PATIENTS. CBC W/PLT COUNT & AUTO [id number] 06:25:00 Test Item Value Reference Range Comments WHITE BLOOD CELL COUNT (BEAKER) (test ewiz=893) 5.3 K/ L 3.5-10.5 RED BLOOD CELL COUNT (BEAKER) (test ocgq=433) 4.11 M/ L 3.93-5.22 HEMOGLOBIN (BEAKER) (test ertr=425) 12.8 GM/DL 11.2-15.7 HEMATOCRIT (BEAKER) (test wmux=876) 40.4 % 34.1-44.9 MEAN CORPUSCULAR VOLUME (BEAKER) (test qhlf=523) 98.3 fL 79.4-94.8 MEAN CORPUSCULAR HEMOGLOBIN (BEAKER) (test 31.1 pg 25.6-32.2 dbim=412) MEAN CORPUSCULAR HEMOGLOBIN CONC (BEAKER) (test 31.7 GM/DL 32.2-35.5 qpdc=447) RED CELL DISTRIBUTION WIDTH (BEAKER) (test 13.7 % 11.7-14.4 zctr=779) PLATELET COUNT (BEAKER) (test xcvf=193) 213 K/CU MM 150-450 MEAN PLATELET VOLUME (BEAKER) (test yzlu=335) 8.9 fL 9.4-12.3 NUCLEATED RED BLOOD CELLS (BEAKER) (test 0 /100 WBC 0-0 hlde=358) NEUTROPHILS RELATIVE PERCENT (BEAKER) (test 47 % hssu=987) LYMPHOCYTES RELATIVE PERCENT (BEAKER) (test 39 % ryaq=701) MONOCYTES RELATIVE PERCENT (BEAKER) (test 9 % gtlt=592) EOSINOPHILS RELATIVE PERCENT (BEAKER) (test 5 % ttzb=809) BASOPHILS RELATIVE PERCENT (BEAKER) (test 0 % jqnc=558) NEUTROPHILS ABSOLUTE COUNT (BEAKER) (test 2.48 K/ L 1.56-6.13 aiqb=326) LYMPHOCYTES ABSOLUTE COUNT (BEAKER) (test 2.04 K/ L 1.18-3.74 tvvh=023) MONOCYTES ABSOLUTE COUNT (BEAKER) (test 0.45 K/ L 0.24-0.36 spai=937) EOSINOPHILS ABSOLUTE COUNT (BEAKER) (test 0.26 K/ L 0.04-0.36 wniu=740) BASOPHILS ABSOLUTE COUNT (BEAKER) (test 0.02 K/ L 0.01-0.08 ipmz=780) IMMATURE GRANULOCYTES-RELATIVE PERCENT (BEAKER) 0 % 0-1 (test mnfm=7589) SHIGA TOXIN [id number] 13:53:00 Test Item Value Reference Range Comments SHIGA TOXIN 1 (BEAKER) (test ppch=4074) Not detected Not detected SHIGA TOXIN 2 (BEAKER) (test baql=6711) Not detected Not detected C. DIFFICILE GDH [id number] 13:28:00 Test Item Value Reference Range Comments CDT TOXIN (test Negative Negative ontd=[id number]) CDT GDH ANTIGEN (test Negative Negative No indication of Clostridium glvp=[id number]) difficile infection and no colonization. Discontinue enteric isolation and therapy. Testing performed by [employer] Rapid Cassette Assay. For GDH, published sensitivity of the assay is 98.7% compared to cytotoxicity testing. For Toxin AB, published sensitivity is 87.8% and specificity 99.4% compared to cytotoxicity testing.Verification of kit performance was done by the [facility] Microbiology Lab prior to clinical use.STOOL PATH [id number] 10:17:00 Test Item Value Reference Range Comments PATHOGEN EXAM CHARGED (BEAKER) (test rytx=5301) Done BASIC METABOLIC [id number] 05:17:00 Test Item Value Reference Range Comments SODIUM (BEAKER) (test 142 meq/L 136-145 qxva=501) POTASSIUM (BEAKER) (test 4.3 meq/L 3.5-5.1 mkiu=034) CHLORIDE (BEAKER) (test 110 meq/L 98-107 ovah=045) CO2 (BEAKER) (test 25 meq/L 22-29 phnj=421) BLOOD UREA NITROGEN 5 mg/dL 7-21 (BEAKER) (test tptq=510) CREATININE (BEAKER) (test 0.78 mg/dL 0.57-1.25 cgdc=715) GLUCOSE RANDOM (BEAKER) 108 mg/dL 70-105 (test cbff=252) CALCIUM (BEAKER) (test 8.9 mg/dL 8.4-10.2 fnpv=902) EGFR (BEAKER) (test 80 mL/min/1.73 sq m ESTIMATED GFR IS NOT hzjs=9156) ACCURATE CREATININE CLEARANCE IN PREDICTING GLOMERULAR FILTRATION RATE. ESTIMATED GFR IS NOT APPLICABLE FOR DIALYSIS PATIENTS. CBC W/PLT COUNT & AUTO [id number] 04:58:00 Test Item Value Reference Range Comments WHITE BLOOD CELL COUNT (BEAKER) (test awrl=582) 4.8 K/ L 3.5-10.5 RED BLOOD CELL COUNT (BEAKER) (test hzem=787) 3.79 M/ L 3.93-5.22 HEMOGLOBIN (BEAKER) (test apfv=037) 11.8 GM/DL 11.2-15.7 HEMATOCRIT (BEAKER) (test ovfo=837) 37.6 % 34.1-44.9 MEAN CORPUSCULAR VOLUME (BEAKER) (test rfyz=616) 99.2 fL 79.4-94.8 MEAN CORPUSCULAR HEMOGLOBIN (BEAKER) (test 31.1 pg 25.6-32.2 bcav=259) MEAN CORPUSCULAR HEMOGLOBIN CONC (BEAKER) (test 31.4 GM/DL 32.2-35.5 pswd=058) RED CELL DISTRIBUTION WIDTH (BEAKER) (test 14.5 % 11.7-14.4 gnyf=892) PLATELET COUNT (BEAKER) (test rwar=000) 216 K/CU MM 150-450 MEAN PLATELET VOLUME (BEAKER) (test mmsm=225) 9.3 fL 9.4-12.3 NUCLEATED RED BLOOD CELLS (BEAKER) (test 0 /100 WBC 0-0 zenp=897) NEUTROPHILS RELATIVE PERCENT (BEAKER) (test 44 % malq=303) LYMPHOCYTES RELATIVE PERCENT (BEAKER) (test 44 % rduc=417) MONOCYTES RELATIVE PERCENT (BEAKER) (test 6 % bsbs=189) EOSINOPHILS RELATIVE PERCENT (BEAKER) (test 5 % uqop=791) BASOPHILS RELATIVE PERCENT (BEAKER) (test 0 % fcjp=782) NEUTROPHILS ABSOLUTE COUNT (BEAKER) (test 2.14 K/ L 1.56-6.13 ziva=061) LYMPHOCYTES ABSOLUTE COUNT (BEAKER) (test 2.12 K/ L 1.18-3.74 fdhs=786) MONOCYTES ABSOLUTE COUNT (BEAKER) (test 0.31 K/ L 0.24-0.36 zdyz=105) EOSINOPHILS ABSOLUTE COUNT (BEAKER) (test 0.24 K/ L 0.04-0.36 hfck=143) BASOPHILS ABSOLUTE COUNT (BEAKER) (test 0.01 K/ L 0.01-0.08 ouep=378) IMMATURE GRANULOCYTES-RELATIVE PERCENT (BEAKER) 0 % 0-1 (test awci=7808) RAD, CHEST, 1 VIEW, NON [id number] 14:21:00Reason for exam:->FeverShould this be performed at the bedside?->YesFINAL REPORT TECHNIQUE: Frontal chest radiograph dated 07/06/2018. CLINICAL HISTORY: Fever COMPARISON STUDY: None IMPRESSION:Lungs are clear. No pleural effusion or pneumothorax. Cardiomediastinal silhouette is normal in size. No pulmonary edema. No fracture. Signed: Xiao Mckinney MDReport Verified Date/Time: 11/2018 14:21:04 Reading Location: [facility] Radiology Reading Room RAPID DRUG SCREEN , [id number] 12:52:00 Test Item Value Reference Range Comments BARBITURATE URINE (BEAKER) (test rqld=327) Negative Negative BENZODIAZEPINE SCREEN URINE (BEAKER) (test Positive Negative otcd=346) COCAINE (METAB.) SCREEN (BEAKER) (test mizg=4880) Negative Negative METHADONE SCREEN (BEAKER) (test afxt=1823) Negative Negative OPIATE SCREEN URINE (BEAKER) (test sbvl=231) Positive Negative CANNABINOID SCREEN URINE (BEAKER) (test bmvf=935) Negative Negative AMPH/METHAMPH SCREEN (BEAKER) (test fwyd=6963) Negative Negative PHENCYCLIDINE SCREEN URINE (BEAKER) (test ekuj=333) Negative Negative OXYCODONE SCREEN URINE (BEAKER) (test qyky=8521) Negative Negative DRUG CUTOFF CONC.Cocaine 300 ng/mL Cannabinoid 50 ng/mL Benzodiazepine 200 ng/mLBarbiturate 200 ng/ mLPhencyclidine 25 ng/mLOpiate 300 ng/mLMethadone 300 ng/mLAmphetamine/ 1000 ng/mL MethamphetamineOxycodone 300 ng/mLThis assay provides an unconfirmed qualitative test result for the clinical management of patients in emergency situations. Chain of custody not maintained. Some snzo-jtz-nqxlaff medications, as well as adulterants, may cause inaccurate results. Clinical correlation should be applied. A more comprehensive drug screen or confirmation of a detected drug may be performed upon request.CBC W/PLT COUNT & AUTO [id number] 12:40:00 Test Item Value Reference Range Comments WHITE BLOOD CELL COUNT (BEAKER) (test rrma=512) 8.7 K/ L 3.5-10.5 RED BLOOD CELL COUNT (BEAKER) (test qqhp=057) 4.01 M/ L 3.93-5.22 HEMOGLOBIN (BEAKER) (test occg=357) 12.6 GM/DL 11.2-15.7 HEMATOCRIT (BEAKER) (test roey=251) 39.3 % 34.1-44.9 MEAN CORPUSCULAR VOLUME (BEAKER) (test zbjc=172) 98.0 fL 79.4-94.8 MEAN CORPUSCULAR HEMOGLOBIN (BEAKER) (test 31.4 pg 25.6-32.2 mrse=547) MEAN CORPUSCULAR HEMOGLOBIN CONC (BEAKER) (test 32.1 GM/DL 32.2-35.5 aadm=583) RED CELL DISTRIBUTION WIDTH (BEAKER) (test 14.3 % 11.7-14.4 cmtn=151) PLATELET COUNT (BEAKER) (test wwom=772) 212 K/CU MM 150-450 MEAN PLATELET VOLUME (BEAKER) (test snjq=935) 10.0 fL 9.4-12.3 NUCLEATED RED BLOOD CELLS (BEAKER) (test 0 /100 WBC 0-0 pxwq=173) NEUTROPHILS RELATIVE PERCENT (BEAKER) (test 65 % zita=450) LYMPHOCYTES RELATIVE PERCENT (BEAKER) (test 25 % eaha=352) MONOCYTES RELATIVE PERCENT (BEAKER) (test 7 % xkhr=187) EOSINOPHILS RELATIVE PERCENT (BEAKER) (test 2 % gtjz=401) BASOPHILS RELATIVE PERCENT (BEAKER) (test 0 % deoc=765) NEUTROPHILS ABSOLUTE COUNT (BEAKER) (test 5.70 K/ L 1.56-6.13 qiff=190) LYMPHOCYTES ABSOLUTE COUNT (BEAKER) (test 2.18 K/ L 1.18-3.74 pgfs=079) MONOCYTES ABSOLUTE COUNT (BEAKER) (test 0.59 K/ L 0.24-0.36 jioi=449) EOSINOPHILS ABSOLUTE COUNT (BEAKER) (test 0.17 K/ L 0.04-0.36 mplw=275) BASOPHILS ABSOLUTE COUNT (BEAKER) (test 0.02 K/ L 0.01-0.08 zpkc=977) IMMATURE GRANULOCYTES-RELATIVE PERCENT (BEAKER) 1 % 0-1 (test qdlk=1963) [id number] 12:12:00 Test Item Value Reference Range Comments PHOSPHORUS (BEAKER) (test niqr=691) 3.0 mg/dL 2.3-4.7 [id number] 12:12:00 Test Item Value Reference Range Comments MAGNESIUM (BEAKER) (test yvwh=034) 2.1 mg/dL 1.6-2.6 BASIC METABOLIC [id number] 12:12:00 Test Item Value Reference Range Comments SODIUM (BEAKER) (test 138 meq/L 136-145 xolj=085) POTASSIUM (BEAKER) (test 3.7 meq/L 3.5-5.1 ahej=562) CHLORIDE (BEAKER) (test 104 meq/L 98-107 chol=233) CO2 (BEAKER) (test 25 meq/L 22-29 ybcx=077) BLOOD UREA NITROGEN 8 mg/dL 7-21 (BEAKER) (test qxnx=647) CREATININE (BEAKER) (test 0.72 mg/dL 0.57-1.25 omil=592) GLUCOSE RANDOM (BEAKER) 93 mg/dL 70-105 (test ggsu=589) CALCIUM (BEAKER) (test 9.1 mg/dL 8.4-10.2 rnon=165) EGFR (BEAKER) (test 87 mL/min/1.73 sq m ESTIMATED GFR IS NOT zfjf=1344) ACCURATE CREATININE CLEARANCE IN PREDICTING GLOMERULAR FILTRATION RATE. ESTIMATED GFR IS NOT APPLICABLE FOR DIALYSIS PATIENTS. HEPATIC FUNCTION [id number] 12:12:00 Test Item Value Reference Range Comments TOTAL PROTEIN (BEAKER) (test dizr=263) 6.4 gm/dL 6.0-8.3 ALBUMIN (BEAKER) (test dlyv=8045) 3.9 g/dL 3.5-5.0 BILIRUBIN TOTAL (BEAKER) (test mycs=033) 0.5 mg/dL 0.2-1.2 BILIRUBIN DIRECT (BEAKER) (test tomx=545) 0.2 mg/dL 0.1-0.5 ALKALINE PHOSPHATASE (BEAKER) (test inuk=443) 78 U/L 40-150 AST (SGOT) (BEAKER) (test awcb=929) 14 U/L 5-34 ALT (SGPT) (BEAKER) (test huvm=357) 12 U/L 6-55 LACTIC ACID, VENOUS, WHOLE [id number] 12:08:00 Test Item Value Reference Range Comments LACTATE BLOOD VENOUS (2) 0.8 mmol/L 0.5-2.2 Specimen moderately hemolyzed (BEAKER) (test txhb=2258) URINALYSIS W/ REFLEX URINE [id number] 11:10:00 Test Item Value Reference Range Comments COLOR (BEAKER) (test ejsa=386) Light Yellow CLARITY (BEAKER) (test gkaf=954) Clear SPECIFIC GRAVITY UA (BEAKER) (test usik=466) 1.020 1.001-1.035 PH UA (BEAKER) (test npui=683) 6.5 5.0-8.0 PROTEIN UA (BEAKER) (test psif=084) Negative Negative GLUCOSE UA (BEAKER) (test vtba=257) Negative Negative KETONES UA (BEAKER) (test vkcj=899) Negative Negative BILIRUBIN UA (BEAKER) (test dmas=372) Negative Negative BLOOD UA (BEAKER) (test zekc=002) Negative Negative NITRITE UA (BEAKER) (test vyie=740) Negative Negative LEUKOCYTE ESTERASE UA (BEAKER) (test honu=453) Negative Negative UROBILINOGEN UA (BEAKER) (test btzg=883) 0.2 mg/dL 0.2-1.0 RBC UA (BEAKER) (test wbzu=972) < /HPF WBC UA (BEAKER) (test nlkj=085) 0 /HPF SQUAMOUS EPITHELIAL (BEAKER) (test jqme=399) < /HPF SOURCE(BEAKER) (test wozi=1565) CT ABDOMEN/PELVIS [id number] 14:26:[address] [id number] IMAGING REPORTPatient Name : Manuel DEL TORO of Service: [id number]: 45 Sex: F Order #: [id number] [facility] 1970 [facility] Number: [id number] Record Number: [id number] Hospital Number: [id number] Physician: KISHAN MUNOZ - Ordering Physician: HERNANDEZ [...] by TIFFANIE Syed 2016-07-26 14:23:48CT ABDOMEN/ PELVIS [id number] 02:49:00[place] [id number] IMAGING REPORTPatient Name: Manuel DEL TORO of Service: [id number]: 45 Sex: F Order #: [id number] [facility] 1970 X-Ray Number: [id number] Record Number: [id number] Hospital Number: [id number] Physician: BLAKE ALLEN - Ordering Physician: AURORA [...] authenticated by MARTINEZ VALDEZ 2016-07-17 02:47:19ABDOMEN 2 [id number] 12:14:[address] [id number] IMAGING REPORTPatient Name: Manuel DEL TORO of Service: [id number]: 45 Sex: F Order #: [id number] [facility] 1970 [facility] Number: [id number] Record Number: [id number] Hospital Number: [id number] Physician: ANMOL TEJEDAOrdering Physician: Elvis GARCIA 2 [...]
--- OUTSIDE RECORDS SUMMARY | 2019-04-16 10:08 | XMS REPORT | Encounter Summary ---
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 Persistent insomnia alprazolam 1 mg tablet Discussion Note: None recorded. Plan of Care Reminders Provider Appointments [facility] 12/11/2018 Jake Franco MD Exam 1:30PM Lab None recorded. Referral None recorded. Procedures None recorded. Surgeries None recorded. Imaging None recorded. Medications Name Start Date acetaminophen 300 mg-codeine 60 mg tablet alprazolam 1 mg tablet Take 1 tablet every day by oral route. take as needed at night buspirone 10 mg tablet celecoxib 100 mg capsule clonazepam 1 mg tablet 1 TAB PO FOUR TIMES A DAILY NEEDED diazepam 5 mg tablet escitalopram 10 mg tablet escitalopram 20 mg tablet 1/2 TAB PO QD fluconazole 150 mg tablet gabapentin 300 mg capsule hydrocortisone 20 mg tablet loperamide 2 mg capsule mesalamine 1.2 gram tablet,delayed release 2 TAB PO QD metoclopramide 10 mg tablet 1 TAB PO EVERY 6 HOURS; 30MIN BEFORE MEALS metronidazole 500 mg tablet nystatin 100,000 unit/mL oral suspension pantoprazole 40 mg tablet,delayed release 1 TAB PO QD prednisone 5 mg tablet quetiapine 100 mg tablet Stelara 90 mg/mL subcutaneous syringe terconazole 0.4 % vaginal cream Insert 1 applicatorful every day by vaginal route for 7 days. tramadol 50 mg tablet Take 1 tablet every 8 hours by oral route as needed. valacyclovir 1 gram tablet Medications Administered None recorded. Vitals Height Weight BMI Blood Pressure 62 in 164 lbs 30 kg/m2 145/73 mm[Hg] Lab Results None recorded. Allergies Code Code System Name Reaction Severity Status Onset 20341001 RxNorm Cipro Other Severe Active 323260 RxNorm Phenergan Facial Moderate Active Swelling Problems Name Status Onset Date Source Chronic Pain Active 08/15/2018 Gastroesophageal Reflux Disease Active 08/15/2018 Crohn's Disease of Small Intestine Active 08/15/2018 Endometriosis (Clinical) Active 08/15/2018 Multiple Joint Pain Active 08/15/2018 Postoperative Visit Active 08/29/2018 Skin Tag Active 10/17/2018 [place]'s Disease Active 11/19/2018 Persistent Insomnia Active 12/07/2018 Procedures Date Name Performed by Large Intestine Excision Information not available Cholecystectomy Information not available Hysterectomy Information not available Vaccine List None recorded. Social History Tobacco Smoking Status Current Every Day Smoker Past Encounters 12/07/2018 Detroit's Disease; Persistent Insomnia Mychal Dai MD: [address] [place] [address], [address], [place] [address], Ph. History of Present Illness Note: CC swelling from steroids taking for [place]'s <div>hpi started on 40 mgm daily now now to20 mgm daily but sig swelling</div><div> cc insomnia</div><div>hpi xanax works</div><div>ros</ div><div>gen not feeling well</div><div>cv neg</div>& lt;div>resp neg</div><div>gi chronic abd pain</div><div& gt;m/ joint pain</div>Review of Systems: ROS as noted in the HPI Review of Systems None recorded. Physical Exam Dr. Dai Brief Adult Exam - M/F Reported By: Patient Constitutional: General Appearance: overweight. Level of Distress: mild distress. Ambulation: limited ambulation Lungs: Auscultation: breath sounds normal, good air movement, CTA except as noted, no wheezing, no rales/crackles, no rhonchi Cardiovascular: Heart Auscultation: RRR, no rubs, no gallops Musculoskeletal: Edema present Notes: marked steroid induced generalized swelling
--- OUTSIDE RECORDS SUMMARY | 2019-04-16 10:08 | XMS REPORT | Encounter Summary ---
:1970 Author Care Team Providers Name Role Phone Mychal Dai MD Primary Care Provider [phone] Reason for Visit Well woman exam Instructions 1. Gynecologic examination pap test, thinprep, cervical urinalysis, dipstick 2. Postsurgical menopause estradiol 1 mg tablet 3. Candidiasis of vagina [place], vaginal Diflucan 100 mg tablet 4. Screening for malignant neoplasm of breast unlisted imaging order - mammo bilateral screening 5. Increased frequency of urination culture, urine Discussion Note Pap done. Schedule mammogram. Advised avoidance of tobacco, alcohol, and drugs . Encouraged good nutrition, regular exercise, and ideal body weight. Discussed HRT risks, benefits and alternatives. Increased risks of stroke, DVT, and breast cancer reviewed; benefits of symptom relief and prevention of osteoporosis and vaginal atrophy explained. At least 30 min. of face to face time spent with the patient , >50% of which was counseling. Patient educational handouts: No information available. Plan of Care Reminders Provider Appointments Follow up Jake Franco MD 01/07/2019 9:45AM Lab [place], In-House Results Vaginal 12/27/2018 Pap Test, [facility] Thinprep, Cervical 12/27/2018 [facility] (Lab) Urinalysis, In-House Results Dipstick 12/27/2018 Culture, [facility] Urine 12/27/2018 [facility] (Labs) (Xray) Referral None recorded. Procedures None recorded. Surgeries None recorded. Imaging Unlisted [facility] Imaging Order 12/27/2018 [facility] (Imaging) Medications Name Start Date acetaminophen 300 mg-codeine 60 mg tablet alprazolam 1 mg tablet Take 1 tablet every day by oral route. buspirone 10 mg tablet buspirone 15 mg tablet celecoxib 100 mg capsule cholestyramine (with sugar) 4 gram oral powder clonazepam 1 mg tablet 1 TAB PO FOUR TIMES A DAILY NEEDED diazepam 5 mg tablet dicyclomine 10 mg capsule Diflucan 100 mg tablet Take 1 tablet every day by oral route for 5 days. escitalopram 10 mg tablet escitalopram 20 mg tablet 1/2 TAB PO QD estradiol 1 mg tablet Take 1 tablet every day by oral route. fluconazole 150 mg tablet gabapentin 300 mg capsule hydrocortisone 20 mg tablet loperamide 2 mg capsule mesalamine 1.2 gram tablet,delayed release 2 TAB PO QD metoclopramide 10 mg tablet 1 TAB PO EVERY 6 HOURS; 30MIN BEFORE MEALS metronidazole 500 mg tablet nitrofurantoin monohydrate/macrocrystals 100 mg capsule Take 1 capsule every 12 hours by oral route. nystatin 100,000 unit/mL oral suspension pantoprazole 40 mg tablet,delayed release 1 TAB PO QD prednisone 5 mg tablet quetiapine 100 mg tablet quetiapine 50 mg tablet Stelara 90 mg/mL subcutaneous syringe terconazole 0.4 % vaginal cream Insert 1 applicatorful every day by vaginal route for 7 days. tramadol 50 mg tablet Take 1 tablet every 8 hours by oral route as needed. valacyclovir 1 gram tablet Medications Administered None recorded. Vitals Height Weight BMI Blood Pressure 5 ft 2 in 152.3 lbs 27.9 kg/m2 92/67 mm[Hg] Lab Results Date Name Specimen Result Interpretation Description Value Range Status Address 12/27/2018 Urinalysis, Leukocytes Negative In-House Dipstick Results: For Internal Use Only Nitrite negative In-House Results: For Internal Use Only Urobilinogen .2 In-House Results: For Internal Use Only Protein Negative In-House Results: For Internal Use Only Ph 6.5 In-House Results: For Internal Use Only Blood Negative In-House Results: For Internal Use Only Specific 1.010 In-House [place] Results: For Internal Use Only Ketone Negative In-House Results: For Internal Use Only Bilirubin Negative In-House Results: For Internal Use Only Glucose Negative In-House Results: For Internal Use Only Appearance Clear In-House Results: For Internal Use Only Color Yellow In-House Results: For Internal Use Only 12/17/2018 Culture, Urine Bacteria Ur no growth Final Gilliam Cult at 48 hrs. [facility] (Lab): [address], [place], Clue Cells negative In-House Vaginal Results: For Internal Use Only Wbcs positive In-House Results: For Internal Use Only Trichomonads negative In-House Results: For Internal Use Only Epithelial normal In-House Cells Results: For Internal Use Only Rbcs negative In-House Results: For Internal Use Only Allergies Code Code System Name Reaction Severity Status Onset 027675 RxNorm Cipro Other Severe Active 541663 RxNorm Phenergan Facial Moderate Active Swelling Problems Name Status Onset Date Source Chronic Pain Active 08/15/2018 Gastroesophageal Reflux Disease Active 08/15/2018 Crohn's Disease of Small Intestine Active 08/15/2018 Endometriosis (Clinical) Active 08/15/2018 Multiple Joint Pain Active 08/15/2018 Postoperative Visit Active 08/29/2018 Skin Tag Active 10/17/2018 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 Social History Tobacco Smoking Status Current Every Day Smoker Past Encounters 12/27/2018 Gynecologic Examination; Postsurgical Menopause; Candidiasis of Vagina; Screening for Malignant Neoplasm of Breast; Increased Frequency of Urination Jake Franco MD: [address], [address], [place] [address], Ph. [phone] 12/17/2018 Urinary Tract Infectious Disease Mychal Dai MD: [address], [address], [place] [address], Ph. [phone] 12/07/2018 Golden's Disease; Persistent Insomnia Mychal Dai MD: [address], [address], [place] [address], Ph. History of Present Illness Note: New patient. Well woman visit. 48 y/o , h/o hysterectomy with BSO in 2006 - took ERT for a few months post-op, then stopped. She c/o vaginal itching and burning. She was diagnosed recently with [place]'s disease. She also has Crohn's disease and osteoporosis. She has occ. hot flashes. 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: Patient Constitutional: Constitutional: no fatigue, no fever, no significant weight gain, no significant weight loss Skin: Skin: no abnormal moles, no rashes Eyes: Eyes: no irritation, no vision changes ENMT: ENMT: no hearing loss, no ear pain, no nose/sinus problems, no sore throat, no snoring, no dry mouth, no mouth ulcers Respiratory: Respiratory: no dyspnea / shortness of breath, no cough, no sputum production, no hemoptysis, no wheezing Cardiovascular: Cardiovascular: no chest pain, no palpitations, no orthopnea Gastrointestinal: Gastrointestinal: no heartburn, no dysphagia, no nausea, no vomiting, no bowel movement changes, no constipation, no rectal bleeding, abdominal pain, diarrhea Genitourinary: Genitourinary: no hematuria, no abnormal bleeding, no flank pain, no trouble urinating, no incontinence, no rash, no lesion, no discharge, no vaginal odor, no vaginal itching Endocrine: Menopausal: hot flashes. Sexual: dyspareunia Musculoskeletal: Musculoskeletal: no muscle aches, no muscle weakness, no arthralgias/joint pain, no back pain Neurological: Neurologic: no headaches, no dizziness, no LOC, no weakness, no numbness, no seizures Psychological: Psych: no depression, no alcoholism, no sleep disturbances Physical Exam Annual Pattern Puncher Reported By: Patient Safety Analyst: Safety Analyst: present Constitutional: General Appearance: healthy-appearing, well-nourished, well-developed Psychiatric: Orientation: to time, to place, to person. Mood and Affect: active and alert, normal mood, normal affect Skin: Appearance: no rashes, no lesions Neck: Neck: supple, trachea midline, no masses, FROM. Thyroid: no enlargement, no nodules, non-tender Lungs: Respiratory Effort: no intercostal retractions, no accessory muscle usage. Auscultation: clear to auscultation, no wheezing, no rales/crackles, no rhonchi Cardiovascular: Auscultation: RRR, no murmur. Peripheral Vascular: no LLE edema, no RLE edema, no varicosities, no calf tenderness, no palpable cords, pedal pulses intact Abdomen: Auscultation/Inspection/Palpation: soft, non-distended, no tenderness, no hepatomegaly, no splenomegaly, no masses. Hernia: none palpated Breast: Inspection/Palpation: no skin changes, no abnormal secretions, nipple appearance normal, no tenderness, no distinct masses Female Genitalia: Vulva: no masses, no atrophy, no lesions. Vagina: no tenderness, no erythema, no vesicle(s) or ulcers, no cystocele, no rectocele, abnormal vaginal discharge. Cervix: absent. Uterus: absent. Bladder/Urethra: normal meatus, no urethral discharge, no urethral mass, bladder non distended Lymph Nodes: Palpation: non tender submandibular nodes, non tender axillary nodes, non tender inguinal nodes Rectal Exam: Rectum: normal perianal skin, no hemorrhoids
--- OUTSIDE RECORDS SUMMARY | 2019-04-16 10:08 | XMS REPORT | Encounter Summary ---
:1970 Author Care Team Providers Name Role Phone Mychal Dai MD Primary Care Provider [phone] Reason for Visit possible UTI Instructions 1. Urinary tract infectious disease culture, urine Macrobid 100 mg capsule Discussion Note: None recorded.Patient educational handouts: No information available. Plan of Care Reminders Provider Appointments Well Woman 12/27/2018 Jake Franco MD Exam 9:30AM Lab Culture, 12/17/2018 [facility] (Labs) (Xray) Referral None recorded. Procedures None recorded. Surgeries None recorded. Imaging None recorded. Medications Name Start Date acetaminophen 300 mg-codeine 60 mg tablet alprazolam 1 mg tablet Take 1 tablet every day by oral route. buspirone 10 mg tablet celecoxib 100 mg capsule clonazepam 1 mg tablet 1 TAB PO FOUR TIMES A DAILY NEEDED diazepam 5 mg tablet escitalopram 10 mg tablet escitalopram 20 mg tablet 1/2 TAB PO QD fluconazole 150 mg tablet gabapentin 300 mg capsule hydrocortisone 20 mg tablet loperamide 2 mg capsule Macrobid 100 mg capsule Take 1 capsule every 12 hours by oral route. take for uti mesalamine 1.2 gram tablet,delayed release 2 TAB [...] Height Weight BMI Blood Pressure 62 in 155 lbs 28.3 kg/m2 137/93 mm[Hg] Lab Results None recorded. Allergies Code Code System Name Reaction Severity Status Onset 20341001 RxNorm Cipro Other Severe Active 976347 RxNorm Phenergan Facial Moderate Active Swelling Problems Name Status Onset Date Source Chronic Pain Active 08/15/2018 Gastroesophageal Reflux Disease Active 08/15/2018 Crohn's Disease of Small Intestine Active 08/15/2018 Endometriosis (Clinical) Active 08/15/2018 Multiple Joint Pain Active 08/15/2018 Postoperative Visit Active 08/29/2018 Skin Tag Active 10/17/2018 [facility] Disease Active 11/19/2018 Persistent Insomnia Active 12/07/2018 Urinary Tract Infectious Disease Active 12/17/2018 Procedures Date Name Performed by Large Intestine Excision Information not available Cholecystectomy Information not available Hysterectomy Information not available Vaccine List None recorded. Social History Tobacco Smoking Status Current Every Day Smoker Past Encounters 12/17/2018 Urinary Tract Infectious Disease Mychal Dai MD: [address], [address], [place] [address], Ph. 12/07/2018 Lizett's Disease; Persistent Insomnia Mychal Dai MD: [address], [address], [place] [address], Ph. [phone] History of Present Illness Note: CC dysuria<div>hpi has been or Azo and bactrim without relief, has had UTIs in the past</div><div>CC lizett's </div><div& gt;hpi sig improved on tapering the steroid</div>Review of Systems: ROS as noted in the HPI Review of Systems None recorded. Physical Exam Notes: consult
--- OUTSIDE RECORDS SUMMARY | 2019-04-16 10:08 | XMS REPORT | Summary of Care ---
:1970 Author Organization [facility] [place] [place] [address] Care Team Providers Name Role Phone Mychal Dai MD Primary Care Provider Reason for Visit Reason Comments Follow Up Abdominal Pain Diarrhea Encounter Details Date Type Department Care Team Description [facility] ; Abdominal Medicine [address] [facility] Pain; Diarrhea Gastroenterology [address] [place] [address] 8th Floor, [address] [phone] [place] [address] Allergies Active Allergy Reactions Severity Noted Date Comments Ciprofloxacin Hives, Swelling 10/25/2011 Promethazine Hcl Other (See Comments) 10/25/2011 Muscle twiching documented as of this encounter (statuses as of 12/20/2018) Medications Medication Sig Dispensed Refills Start Date End Date Status Sertraline HCl (ZOLOFT Take by mouth. 0 Active OR) PANTOPRAZOLE SODIUM OR Take 40 mg by 0 Active mouth daily. clonazePAM (KLONOPIN Take 1 mg by 0 Active OR) mouth 3 times daily. acetaminophen-codeine 300 mg as needed. 0 Active (TYLENOL/CODEINE #3) 300-30 MG per tablet clindamycin (CLEOCIN) TK ONE C PO Q 6 0 08/23/2018 Active 300 MG capsule HOURS FOR 14 DAYS Oxycodone HCl 10 MG TK ONE T PO Q 4 H 0 08/29/2018 Active TABS PRN P fluconazole (DIFLUCAN) Take 1 Tab by 2 Tab 2 09/04/2018 Active 150 MG mouth daily. - tabletIndications: then repeat dose Crohn's disease of both in 7 weeks small and large intestine with other complication, History of immunosuppression therapy, Vaginal ye Clotrimazole Place 1 1 Tube 3 09/04/2018 Active (CLOTRIMAZOLE-7) 1 % application CREAIndications: vaginally daily. Crohn's disease of both small and large intestine with other complication, History of immunosuppression therapy, Vaginal ye pantoprazole (PROTONIX) Take 1 Tab by 60 Tab 5 09/04/2018 Active 40 MG mouth 2 times tabletIndications: daily (before Crohn's disease of both meals). 1 tablet small and large by mouth every intestine with other day complication, Gastroesophageal reflux disease, esophagitis presence not specified Ustekinumab (STELARA) Inject 90 mg into 90 mg 5 09/04/2018 Active 90 MG/ML injection the skin every 28 days. hydrocortisone (CORTEF) Take 1 Tab by 180 Tab 3 11/27/2018 Active 10 MG tablet mouth two times 9 daily for 90 days. busPIRone (BUSPAR) 10 Take 10 mg by 0 Active MG tablet mouth 3 times daily. Cholestyramine 4 Take 4 g by mouth 90 Can 3 12/18/2018 Active GM/DOSE 3 times daily. POWDIndications: Crohn's disease of small intestine with intestinal obstruction dicyclomine (BENTYL) 10 Take 1 Cap by 120 Cap 6 12/18/2018 Active MG capsuleIndications: mouth 4 times Crohn's disease of daily (before small intestine with meals and intestinal obstruction nightly). 1 by mouth four times a day Ferrous Sulfate (IRON) Take 325 mg by 120 Each 3 12/18/2018 Active 325 (65 Fe) MG mouth two times TABSIndications: daily. Crohn's disease of small intestine with intestinal obstruction Cholecalciferol Take 2,000 Units 120 Cap 3 12/18/2018 Active (VITAMIN D) 2000 units by mouth daily. CAPSIndications: Crohn's disease of small intestine with intestinal obstruction documented as of this encounter (statuses as of 12/20/2018) Active Problems Problem Noted Date Crohn's disease of both small and large intestine with other complication 09/2018 History of immunosuppression therapy 09/03/2018 Medication monitoring encounter 09/03/2018 Intestinal malabsorption 09/03/2018 Small bowel obstruction 09/03/2018 History of Clostridium difficile infection 09/03/2018 Chronic abdominal pain 09/03/2018 Macrocytic anemia 09/03/2018 Osteopenia 09/03/2018 Heavy smoker 09/03/2018 documented as of this encounter (statuses as of 12/20/2018) Social History Tobacco Use Types Packs/Day Years Used Date Current Every Day Smoker Cigarettes 1 20 Smokeless Tobacco: Never Used Alcohol Use Drinks/Week oz/Week Comments Not Asked Occassionally Sex Assigned at Date Recorded Not on file Job Start 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 documented as of this encounter Last Filed Vital Signs Vital Sign Reading Time Taken Comments Blood Pressure 110/60 12/18/2018 10:04 AM CDT Pulse 74 12/18/2018 10:04 AM CDT Temperature 36.7 C (98 F) 12/18/2018 10:04 AM CDT Respiratory Rate 16 12/18/2018 10:04 AM CDT Oxygen Saturation - - Inhaled Oxygen Concentration - - Weight 70.7 kg (155 lb 12.8 oz) 12/18/2018 10:04 AM CDT Height 157.5 cm (5' 2") 12/18/2018 10:04 AM CDT Body Mass Index 28.5 12/18/2018 10:04 AM CDT documented in this encounter Progress Notes Otto Daniels MD - 12/18/2018 10:00 AM CDTPt seen and examined w/ Dr. Mcdonough I have reviewed her assessment and plan and agree as written. Complicated h/o CD s/p resection x2. CD sx stable, will cont Stelara for post- op prophylaxis. Discussed at length risks of CD recurrence/progression w/ continued smoking. - immunosuppression montioring Suspect component of diarrhea in absence of other inflammation related to resections. Trial of cholesytramine. Claudia Briones MD - 12/18/2018 10:00 AM CDT HPI: Angela Rodriguez is a 48 y.o. female with h/o Crohn's with ileocolonic, stricturing dz initially dx'd in 2008; She is s/p SBR w/ ileocecal anastomosis (2006) and recent admission (07/06 - 07/11) for Crohn's flare &pSBO managed w/ IV steroids and discharged on Prednisone taper [facility] pain, nausea, diarrhea, and inability to tolerate PO diet (limited to liquid diet per patient) . GI C-Scope (07/11/18) revealed yared-TI w/ single solitary ulcer, benign- appearing intrinsic severe stenosis at ileocecal anastomosis (not traversed), normal colonwithoutevidence of active / chronic colitis on random bx. CT Enterography (07/08/18) w/ acute sigmoid colitis and no small bowel enteritis, stricture, fistula, or abscesses; CT A|P(07/21/18) withsome interval improvement of sigmoid colitis from previous imaging but no obstruction noted. She underwent laparoscopic right colectomy on 08/20/[address] Sanchez for SBO at the ileocecal anastomosis; PMH also significant for PMH significant for Endometriosis s/p hysterectomy, Intrathecal pain pump 2/2 chronic endometriosis pain. Current medications: Prednisone; Stelara (started March 2018) 90 mg q 4 weeks Prior medications: Imuran: caused alopecia; no efficacy despite 2 years of therapy. Humira: helped joint pains; primary failure for GI symptoms. Remicade: primary failure Asacol: Pentasa: Colazol: primary nonresponse; steroids/ prednisone: cannot tolerate. H/o pain pump Clinic visit 12/18/2018 Pt was recently hospitalized for 10 days (11/06 - 11/16/2018) at [facility] for chronic diarrhea and abdominal pain. - CT A/P with evidence of inflammatory changes at IC anastamosis. - Colonoscopy 11/10/2018 with nonspecific mucus/purulence at site of IC anastomosis, path w/out evidence of inflammation or infection - Capsule endoscopy done in patient showed small ulcerations, unlikely accounting for current symptoms. - C diff negative. GI PCR panel negative, OP negative - ACTH stimulation testing with inadequate response suggesting adrenal insufficiency, started on hydrocortisone - GI symptoms improved on steroid therapy (for adrenal insufficiency and not for Crohns), adrenal insufficiency likely accounting for the Presentation. Currently, 15 bm, watery [place] 6-7, non bloody. Mild improvement from 20 bm daily after starting hydrocortisone. Ever since the first surgery she has had diarrhea. Also has associated bloating. She is s/p CCY. In the past, if she took lomotil or imodium for the diarrhea, she would have bad bloating.Tobi has worked for the bloating in the past. Also has chronic abdominal pain but it is not as bad as at the time of hospitalization. Has accidents. Has urgency. Has 4-5 daily nocturnal bm. Has hemorrhoids. Has joint pains. On Stelara. Has upcoming appointments with Endo and AMMUNITION OFFICER. Continues to smoke. Medical History Medical History Date Comments Endometriosis Crohn disease (HCC) C. difficile diarrhea Surgical History: Surgery Date Laterality Comments BOWEL RESECTION 2006 ANKLE SURGERY at age 22 WRIST SURGERY 2016 INTRATHECAL PUMP IMPLANTATION 2013 COLONOSCOPY,BIOPSY 07/11/2018 N/A Procedure: COLONOSCOPY,BIOPSY; Surgeon: King Huynh MD; Location: [facility]; Service: Gastroenterology; Laterality: N/A ; COLONOSCOPY COLON SURGERY HYSTERECTOMY total LAPAROSCOPY,COLECTOMY RIGHT 08/20/2018 Right Procedure: LAPAROSCOPY,COLECTOMY RIGHT; Surgeon: Jani Sanchez MD; Location: [facility]; Service: General Surgery; Laterality: Right; LAPAROSCOPIC RIGHT COLECTOMY Social History: Tobacco Use Types Packs/Day Years Used Date Current Every Day Smoker 2 36 Smokeless Tobacco: Never Used Family History: Medical History Relation Name Comments Cancer Maternal Grandfather Dementia Maternal Grandmother Endometriosis Maternal Grandmother Suicidality Maternal Uncle Endometriosis Mother ENDOSCOPY: Egd Done ~2010 - + for 3 ulcers in stomach Egd - 05/22/18: - In middle of esophagus a .55 cm non-obstructing, mass noted; The mass is benign appearing and and partially pedunculated; Mass was not actively bleeding - GE junction located at 40 cm from the incisors - In the prepyloric area, a single localized erosion was evident; Th erosion was not actively bleeding - In the whole stomach, moderate, diffuse gastritis was seen - no mucosal bleeding -Examined duodenum was normal Path: Stomach - no diagnostic alteration; No H Pylori Esophagus - Squamous papilloma; Negative for intestinal metaplasia, dysplasia or malignancy Colonoscopy - 07/11/18: - The yared-terminal ileum contained a single (solitary) ulcer. Findings: - A benign-appearing, intrinsic severe stenosis was found at the anastomosis and was non-traversed. - The ascending colon appeared normal. Biopsies were taken with a cold forceps for histology. - The transverse colon appeared normal. Biopsies were taken with a cold forceps for histology. - The descending colon appeared normal. - The recto-sigmoid colon appeared normal. - A single (solitary) ulcer in the yared-terminal ileum. - Stricture at the colonic anastomosis. - The ascending colon is normal. Biopsied. - The transverse colon is normal. Biopsied - The descending colon is normal. - The recto-sigmoid colon is normal. Advised: - Continue steroids and outpatient stelara - Will need to be discussed at multidisciplinary rounds about balloon dilation of the stenosis vs surgical resection - Smoking cessation Path: DIAGNOSIS A. COLON, RIGHT/ASCENDING, RANDOM, BIOPSY: - COLONIC MUCOSA WITH NO SIGNIFICANT DIAGNOSTIC ABNORMALITY (SEE MICROSCOPIC DESCRIPTION AND COMMENT) B. COLON, TRANSVERSE, RANDOM, BIOPSY: - COLONIC MUCOSA WITH NO SIGNIFICANT DIAGNOSTIC ABNORMALITY (SEE MICROSCOPIC DESCRIPTION AND COMMENT) C. COLON, LEFT/DESCENDING, RANDOM, BIOPSY: - COLONIC MUCOSA WITH NO SIGNIFICANT DIAGNOSTIC ABNORMALITY (SEE MICROSCOPIC DESCRIPTION AND COMMENT) D. COLON, SIGMOID, RANDOM, BIOPSY: - COLONIC MUCOSA WITH NO SIGNIFICANT DIAGNOSTIC ABNORMALITY Surgical Pathology - 08/20/18: DIAGNOSIS A. COLON, RIGHT/ASCENDING, RIGHT HEMICOLECTOMY: - CHRONIC ACTIVE ENTERITIS COMPATIBLE WITH CROHN'S DISEASE (SEE COMMENT) - NEGATIVE FOR GRANULOMAS (OR) VIRAL CYTOPATHIC CHANGES - NEGATIVE FOR DYSPLASIA (OR) MALIGNANCY - MARGINS, UNREMARKABLE Per Epic, patient's history of Crohn's disease s/p ileocecal anastomosis (2006) and recent admissionwith Crohn's flare treatment with IV steroidswith persistent symptoms is noted. Histologic features are compatible with chronic inflammatory bowel disease. Features including smallbowel involvement, areas of submucosal fibrosis ( stricture), fat stranding, and transmural lymphoid aggregate underneath non- ulcerated areas are in favor of Crohn's disease. No granulomas (or) viral cytopathic changes are seen. RADIOLOGY: CT A/P - 08/17/18: Findings: Unremarkable appearance of pancreas and spleen. [...] of active inflammatory bowel disease on this examination. 2. Previous cholecystectomy and hysterectomy. CT A/P - 07/21/18: FINDINGS: Multiple axial images of the abdomen [...] pump overlies the right lower quadrant. IMPRESSION: There is a short segment of prominent [...] in the previously described findings of colitis. CTE - 07/08/18: FINDINGS: In the sigmoid colon there are [...] No stricture, fistula, or intramesenteric abscess demonstrated. SB Series (scanned under media) - 11/16/17: No small bowel evidence of dilatation or obstruction Labs: Pancreatic Elastase - 11/21/17 - 498 CBC (Hemogram only) (08/23/2018 6:05 AM CDT) Only the most recent of 3 results within the time period is included. CBC (Hemogram only) (08/23/2018 6:05 AM CDT) WBC 5.5 3.5 - 10.5 K/L [facility] RBC 3.31 (L) 3.93 - 5.22 M/L [facility] Hemoglobin 10.4 (L) 11.2 - 15.7 GM/DL [facility] Hematocrit 34.9 34.1 - 44.9 % [facility] MCV 105.4 (H) 79.4 - 94.8 fL [facility] MCH 31.4 25.6 - 32.2 pg [facility] MCHC 29.8 (L) 32.2 - 35.5 GM/DL [facility] RDW 15.4 (H) 11.7 - 14.4 % [facility] Platelets 185 150 - 450 K/CU MM [facility] MPV 8.9 (L) 9.4 - 12.3 fL [facility] nRBC 0 0 - 0 /100 WBC [facility] Phosphorus (08/23/2018 6:05 AM CDT) Only the most recent of 6 results within the time period is included. Phosphorus (08/23/2018 6:05 AM CDT) Phosphorus 2.9 2.3 - 4.7 mg/dL [facility] Magnesium (08/23/2018 6:05 AM CDT) Only the most recent of 6 results within the time period is included. Magnesium (08/23/2018 6:05 AM CDT) Magnesium 1.9 1.6 - 2.6 mg/dL [facility] Basic Metabolic Panel (08/23/2018 6:05 AM CDT) Only the most recent of 11 results within the time period is included. Basic Metabolic Panel (08/23/2018 6:05 AM CDT) Sodium 139 136 - 145 meq/L [facility] Potassium 4.0 3.5 - 5.1 meq/L [facility] Chloride 108 (H) 98 - 107 meq/L [facility] CO2 26 22 - 29 meq/L [facility] BUN 6 (L) 7 - 21 mg/dL [facility] Creatinine 0.68 0.57 - 1.25 mg/dL [facility] Glucose 87 70 - 105 mg/dL [facility] Calcium 8.5 8.4 - 10.2 mg/dL [facility] EGFR 93 REVIEW OF SYSTEMS: General: no fever/chills, no fatigue Ophthalmic: no blurry vision, no erythema ENT: No oral lesions or vocal changes Respiratory: no cough, shortness of breath, or wheezing Cardiovascular: no chest pain or dyspnea on exertion Gastrointestinal: see HPI Genitourinary: no dysuria, trouble voiding, or hematuria Musculoskeletal:+ joint pains, no joint swelling Neurological: no numbness/tingling Dermatological: no skin rashes Psychological: no anxiety / depression PHYSICAL EXAM: General: Alert, oriented, no acute distress HEENT: oropharnyx clear - no lesions Neck: Supple, no lymphadenopathy, no masses Chest: Clear to auscultation bilaterally CV: Normal S1, S2 Abdomen: Normoactive bowel sounds, soft, no organomegaly, nontender Ext: No edema Neuro: no focal deficits Skin: no rashes A/P: Crohns -ileocolonic, stricturing dz - s/p laparoscopic right colectomy on 08/[address] Sanchez 2/2 SBO at ileocecal anastomosis site - with significant improvement in abd pain and distention - and improvement in stool frequency since starting UST 03/2018. H/o primary nonresponse for ADA and IFX in past H/o C diff 2017 Current smoker H/o Endometriosis PORTER Vit D deficiency H/o Osteopenia GERD S/p Intrathecal pain pump Esophageal squamous papilloma Adrenal insufficiency. Post surgical diarrhea. GERD - Based on the inpatient colonoscopy 11/10/2018 and VCE, her symptoms are not from active Crohns disease. She is in endoscopic remission with Stelara - PORTER - will start on PO iron. - Vit D deficiency: Will start on PO vit D. - Her symptoms can be explained from BAD postsurgery. Also she is s/p CCY. - Will start her on cholestyramine. Bentyl prn for bloating/cramps. Also advised to cut down her caffeine/coffee intake. - Can consider rifaximin if inadequate response to cholestyramine. - C/w protonix for GERD - Discussed lifestyle and dietary modifications for GERD - ie: Avoid excessive alcohol, caffeine, carbonated beverages, chocolate, and overeating; If you currently smoke work on smoking cessation; Eat small frequent meals throughout the day (instead of 2-3 large meals); Do not lie down for 2-3 hours after you have eaten a meal and keep head of bed elevated at night time 4-6 inches - Egd 05/2018 and path results received from Dr Mora's office (in media)- recommend repeat Egd in 2 years for surveillance of esophageal squamous papilloma. - F/u with AMMUNITION OFFICER and Endo. Health Maintenance A. Tuberculosis screening: TB quant -ve 09/04/18 B. Immunizations- Immune to Hep A. C. DEXA scan 09/04/18 - +Osteopenia D. Counseling for tobacco- Counseled on smoking cessation. E. Surveillance colonoscopy- Limited colonic disease. RTC- 3 months. documented in this encounter Plan of Treatment Date Type Specialty Care Team Description 03/08/2019 Office Visit Endocrinology Richardson Paul MD [address] [facility] [address] [facility], [address] [place] [address] Health Maintenance Due Date Last Done Comments MAMMOGRAM ANNUAL 1970 MEDICARE AWV 1970 TETANUS SHOT (ADULT) 09/13/1986 BMI FOLLOW UP PLAN 09/13/1989 HIV SCREENING 09/13/1989 CERVICAL CANCER SCREENING 3 YEAR FOLLOW UP 09/13/1992 FLU VACCINE > 6 MONTHS 11/29/2018 documented as of this encounter Results Not on filedocumented in this encounter Visit Diagnoses Diagnosis Crohn's disease of small intestine with intestinal obstruction - Primary Regional enteritis of small intestine documented in this encounter Insurance Payer Benefit Plan / Subscriber ID Effective Dates Phone Address Type Group MEDICARE MEDICARE PART A xxxxxxxxxx 2014-Present [address] Medicare & [place] [address] MEDICAID [employer]-MEDICAID - xxxxxxxxx 2017-Present [address] [place] [address] documented as of this encounter
--- OUTSIDE RECORDS SUMMARY | 2019-04-16 10:09 | XMS REPORT | Encounter Summary ---
:1970 Author Care Team Providers Name Role Phone Mychal Dai MD Primary Care Provider [phone] Jake Franco Professor Of Management [phone] Reason for Visit colposcopy/biopsy Instructions 1. Atypical squamous cells of undetermined significance on vaginal Papanicolaou smear 2. Human papilloma virus deoxyribonucleic acid test positive, high risk on vaginal specimen Discussion Note Discussed today's findings and my impression. Reviewed general info about dysplasia, HPV, and treatment options. Plan: close surveillance with pap smears. Patient educational handouts: No information available. Plan of Care Reminders Provider Appointments Repeat Pap 08/01/2019 Jake Franco, 1:30PM Lab None recorded. Referral None recorded. Procedures None recorded. Surgeries None recorded. Imaging None recorded. Medications Name Start Date acetaminophen 300 mg-codeine 30 mg tablet Take one tab one hour before appointment, then 1-2 q 4 hrs PRN pain. acetaminophen 300 mg-codeine 60 mg tablet alprazolam 1 mg tablet Take 1 tablet every day by oral route. buspirone 10 mg tablet buspirone 15 mg tablet cefuroxime axetil 500 mg tablet celecoxib 100 mg capsule cholestyramine (with sugar) 4 gram oral powder clonazepam 1 mg tablet 1 TAB PO FOUR TIMES A DAILY NEEDED diazepam 10 mg tablet Take one tab p.o. one hour before appointment. diazepam 5 mg tablet dicyclomine 10 mg capsule escitalopram 10 mg tablet escitalopram 20 mg tablet 1/2 TAB PO QD estradiol 1 mg tablet Take 1 tablet every day by oral route. fluconazole 100 mg tablet 1/2 tab p.o. q day fluconazole 150 mg tablet fluconazole 200 mg tablet Take 1 tablet every day by oral route for 3 days. gabapentin 300 mg capsule hydrocortisone 20 mg tablet loperamide 2 mg capsule mesalamine 1.2 gram tablet,delayed release 2 TAB PO QD metoclopramide 10 mg tablet 1 TAB PO EVERY 6 HOURS; 30MIN BEFORE MEALS metronidazole 500 mg tablet nitrofurantoin monohydrate/macrocrystals 100 mg capsule Take 1 capsule twice a day by oral route for 5 days. nystatin 100,000 unit/gram topical cream APPLY TO THE AFFECTED AREA(S) BY TOPICAL ROUTE 2 TIMES PER DAY nystatin 100,000 unit/mL oral suspension pantoprazole 40 mg tablet,delayed release 1 TAB PO QD prednisone 5 mg tablet quetiapine 100 mg tablet quetiapine 50 mg tablet Stelara 90 mg/mL subcutaneous syringe sulfamethoxazole 800 mg-trimethoprim 160 mg tablet Take 1 tablet twice a day by oral route for 7 days. terconazole 0.4 % vaginal cream Insert 1 applicatorful every day by vaginal route for 7 days. tramadol 50 mg tablet Take 1 tablet every 8 hours by oral route as needed. valacyclovir 1 gram tablet Medications Administered None recorded. Vitals Height Weight BMI Blood Pressure 5 ft 2 in 152.3 lbs 27.9 kg/m2 108/64 mm[Hg] Lab Results Date Name Specimen Result Interpretation Description Value Range Status Address 01/25/2019 Ellie Sp SWAB-1 Normal Ellie negative Final Medical DNA, Albicans by Diagnostic Vaginal Real-time PCR Laboratories ([facility]): [address] [place] [address], [place] SWAB-1 Normal Ellie negative Final Medical Tropicalis by Diagnostic Real-time PCR Laboratories ([facility]): [address] [place] [address], [place] SWAB1 Normal Ellie negative Final Medical Parapsilosis Diagnostic by Real-time Laboratories PCR ([facility]): [address] [place] [address] SWAB-1 Normal Ellie negative Final Medical Glabrata by Diagnostic Real-time PCR Laboratories ([facility]): [address] [place] [address], [place] 01/25/2019 Urinalysis Leukocytes Negative In-House , Dipstick Results: For Internal Use Only Nitrite negative In-House Results: For Internal Use Only Urobilinogen .2 In-House Results: For Internal Use Only Protein Negative In-House Results: For Internal Use Only Ph 7.0 In-House Results: For Internal Use Only Blood Negative In-House Results: For Internal Use Only Specific 1.015 In-House [place] Results: For Internal Use Only Ketone Trace In-House Results: For Internal Use Only Bilirubin Small In-House Results: For Internal Use Only Glucose Negative In-House Results: For Internal Use Only Appearance Clear In-House Results: For Internal Use Only Color Yellow In-House Results: For Internal Use Only 01/07/2019 Urinalysis Leukocytes Negative In-House , Dipstick Results: For Internal Use Only Nitrite negative In-House Results: For Internal Use Only Urobilinogen .2 In-House Results: For Internal Use Only Protein Negative In-House Results: For Internal Use Only Ph 6.5 In-House Results: For Internal Use Only Blood Negative In-House Results: For Internal Use Only Specific 1.010 In-House [place] Results: For Internal Use Only Ketone Negative In-House Results: For Internal Use Only Bilirubin Negative In-House Results: For Internal Use Only Glucose Negative In-House Results: For Internal Use Only Appearance Clear In-House Results: For Internal Use Only Color Yellow In-House Results: For Internal Use Only [place], Clue Cells negative In-House Vaginal Results: For Internal Use Only Wbcs negative In-House Results: For Internal Use Only Trichomonads negative In-House Results: For Internal Use Only Epithelial normal In-House Cells Results: For Internal Use Only Rbcs negative In-House Results: For Internal Use Only Allergies Code Code System Name Reaction Severity Status Onset 244941 RxNorm Cipro Other Severe Active 499788 RxNorm Phenergan Facial Moderate Active Swelling Problems Name Status Onset Date Source Chronic Pain Active 08/15/2018 Gastroesophageal Reflux Disease Active 08/15/2018 Crohn's Disease of Small Intestine Active 08/15/2018 Endometriosis (Clinical) Active 08/15/2018 Multiple Joint Pain Active 08/15/2018 Skin Tag Active 10/17/2018 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 Persistent Insomnia Active 12/07/2018 Urinary Tract Infectious Disease Active 12/17/2018 Acute Cystitis Active 12/28/2018 Candidiasis of Vagina Active 01/07/2019 Postsurgical Menopause Active 01/07/2019 HPV - Human 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 Active 01/10/2019 Atypical Squamous Cells of Undetermined Active 01/10/2019 Significance on Vaginal Papanicolaou Smear 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, High Risk on Vaginal Specimen Procedures Date Name Performed by 05/01/2006 Hysterectomy Information not available Large Intestine Excision Information not available Cholecystectomy Information not available Vaccine List None recorded. Social History Tobacco Smoking Status Current Every Day Smoker Past Encounters 01/29/2019 Atypical Squamous Cells of Undetermined Significance on Vaginal Papanicolaou Smear; Human Papilloma Virus Deoxyribonucleic Acid Test Positive, High Risk on Vaginal Specimen Jake Franco MD: [address] [place] [address], Ph. [phone] 01/25/2019 Candidiasis of Vagina Jake Franco MD: [address] [facility] [address], [place] [address], Ph. [phone] 01/07/2019 Postsurgical Menopause; Candidiasis of Vagina; Acute Cystitis Jake Franco MD: [address], [place] [address], Ph. [phone] History of Present Illness Note: Patient presents for colposcopy due to vaginal pap smear with ASCUS, positive HPV. She had a hysterectomy in 2006. Review of Systems None recorded. Physical Exam None recorded.
--- OUTSIDE RECORDS SUMMARY | 2019-04-16 10:09 | XMS REPORT | Encounter Summary ---
:1970 Author Care Team Providers Name Role Phone Mychal Dai MD Primary Care Provider [phone] Jake Franco Tree Puller [phone] Reason for Visit Problem Visit Instructions 1. Candidiasis of vagina urinalysis, dipstick ye sp DNA, vaginal wet [place], vaginal Diflucan 200 mg tablet Diflucan 100 mg tablet Discussion Note: None recorded.Patient educational handouts: No information available. Plan of Care Reminders Provider Appointments Colposcopy Jake Franco MD 01/29/2019 1:30PM Lab Urinalysis, In-House Results Dipstick 01/25/2019 Ye Sp Medical Diagnostic DNA, Vaginal 01/25/2019 Laboratories ([facility]) [place], In-House Results Vaginal 01/25/2019 Referral None recorded. Procedures None recorded. Surgeries [...] 10 mg capsule Diflucan 100 mg tablet 1/2 tab p.o. q day Diflucan 200 mg tablet Take 1 tablet every day by oral route for 3 days. escitalopram 10 mg tablet escitalopram 20 [...] BMI Blood Pressure 5 ft 2 in 154.2 lbs 28.2 kg/m2 91/71 mm[Hg] Lab Results Date Name Specimen Result Interpretation Description Value Range Status Address 01/25/2019 Urinalysis, Leukocytes Negative In-House Dipstick Results: For Internal Use Only Nitrite negative In-House Results: For Internal Use Only Urobilinogen .2 In-House Results: For Internal Use Only Protein Negative In-House Results: For Internal Use Only Ph 7.0 In-House Results: For Internal Use Only Blood Negative In-House Results: For Internal Use Only Specific 1.015 In-House [place] Results: For Internal Use Only Ketone Trace In-House Results: For Internal Use Only Bilirubin Small In-House Results: For Internal Use Only Glucose Negative In-House Results: For Internal Use Only Appearance Clear In-House Results: For Internal Use Only Color Yellow In-House Results: For Internal Use Only 01/07/2019 Urinalysis, Leukocytes Negative In-House Dipstick Results: For Internal Use Only Nitrite negative In-House Results: For Internal Use Only Urobilinogen .2 In-House Results: For Internal Use Only Protein Negative In-House Results: For Internal Use Only Ph 6.5 In-House Results: For Internal Use Only Blood Negative In-House Results: For Internal Use Only Specific 1.010 In-House [place] Results: For Internal Use Only Ketone Negative In-House Results: For Internal Use Only Bilirubin Negative In-House Results: For Internal Use Only Glucose Negative In-House Results: For Internal Use Only Appearance Clear In-House Results: For Internal Use Only Color Yellow In-House Results: For Internal Use Only 12/27/2018 Culture, Bacteria Ur Final [place] Urine Cult [facility] (Lab): [address] [place] [address] 12/27/2018 Antibiotic Susceptible Gentamicin <4 ug/mL Not [place] Sensitivity Islt French Reported [facility] (Lab): [address] [place] [address] Resistant Ampicillin >16 ug/mL Not [place] Islt French Reported [facility] (Lab): [address] [place] [address] Susceptible Cefazolin Islt <8 ug/mL Not [place] French Reported [facility] (Lab): [address] [place] [address] Susceptible Tmp Smx Islt =2/38 Not [place] French ug/mL Reported [facility] (Lab): [address] [place] [address] Susceptible Tetracycline <4 ug/mL Not [place] Islt French Reported [facility] (Lab): [address] [place] [address] Susceptible Amoxicillin+cl =8/4 Not [place] av Islt French ug/mL Reported [facility] (Lab): [address] [place] [address] Susceptible Tobramycin <4 ug/mL Not [place] Islt French Reported [facility] (Lab): [address] [place] [address] Susceptible Nitrofurantoin <32 ug/mL Not [place] Islt French Reported [facility] (Lab): [address] [place] [address] Susceptible Cefotaxime <2 ug/mL Not [place] Islt French Reported [facility] (Lab): [address] [place] [address] Susceptible Cefepime Islt <8 ug/mL Not [place] French Reported [facility] (Lab): [address] [place] [address] Resistant Levofloxacin >4 ug/mL Not [place] Islt French Reported [facility] (Lab): [address] [place] [address] Susceptible Pip+tazo Islt <16 ug/mL Not [place] French Reported [facility] (Lab): [address] [place] [address] Susceptible Ceftazidime <1 ug/mL Not [place] Islt French Reported [facility] (Lab): [address] [place] [address] Susceptible Ceftriaxone <8 ug/mL Not [place] Islt French Reported [facility] (Lab): [address] [place] [address] Resistant Ciprofloxacin >2 ug/mL Not [place] Islt French Reported [facility] (Lab): [address] [place] [address] Susceptible Imipenem Islt <4 ug/mL Not [place] French Reported [facility] (Lab): [address] [place] [address] Resistant Ampicillin+sul =16/8 Not [place] geovany Islt French ug/mL Reported [facility] (Lab): [address] [place] [address] Susceptible Ertapenem Islt <2 ug/mL Not [place] French Reported [facility] (Lab): [address] [place] [address] Susceptible Aztreonam Islt <8 ug/mL Not [place] French Reported [facility] (Lab): [address] [place] [address] Susceptible Cefuroxime <4 ug/mL Not [place] Islt French Reported [facility] (Lab): [address] [place] [address] Susceptible Meropenem Islt <4 ug/mL Not [place] French Reported [facility] (Lab): [address] [place] [address] 12/27/2018 Pap Test, HPV I/H Risk 1 positive Final [place] Thinprep, DNA Cervix Ql [facility] Cervical Bdna [facility] (Lab): [address] [place] [address] Results Final [facility] (Lab): [address] [place] [address] 12/27/2018 Urinalysis, Leukocytes Negative In-House Dipstick Results: For Internal Use Only Nitrite negative In-House Results: For Internal Use Only Urobilinogen .2 In-House Results: For Internal Use Only Protein Negative In-House Results: For Internal Use Only Ph 6.5 In-House Results: For Internal Use Only Blood Negative In-House Results: For Internal Use Only Specific 1.010 In-House [place] Results: For Internal Use Only Ketone Negative [...] negative In-House Results: For Internal Use Only Wet [...] Onset 20341001 RxNorm Cipro Other Severe Active 176308 RxNorm Phenergan Facial Moderate Active Swelling Problems [...] Active 01/10/2019 Significance on Vaginal Papanicolaou Smear Procedures Date Name Performed by 05/01/2006 Hysterectomy Information not available Large Intestine Excision Information not available Cholecystectomy Information not available 12/27/2018 Unlisted Imaging Order [facility] (Imaging) [address] [place] [address] (Work Place) Vaccine List None recorded. Social History Tobacco Smoking Status Current Every Day Smoker Past Encounters 01/25/2019 Candidiasis of Vagina Jake Franco MD: [address] [address], Ph. [phone] 01/07/2019 Postsurgical Menopause; Candidiasis of Vagina; Acute Cystitis Jake Franco MD: [address] [address], Ph. [phone] 12/27/2018 Gynecologic Examination; Postsurgical Menopause; Candidiasis of Vagina; Screening for Malignant Neoplasm of Breast; Increased Frequency of Urination Jake Franco MD: [address] [address], Ph. [phone] History of Present Illness Note: Problem visit. Patient complains of frequent, recurring yeast infections. She has been treatedseveral times in the past few weeks. She took Diflucan two weeks ago, with relief of symptoms for afew days. Itching and burning recurred, at introitus and intravaginally. She has been using Monistat vaginal cream the past three days, but this causes more irritation. She has Crohn's disease and takes Stelara.Review of Systems: ROS as noted in the HPI Review of Systems None recorded. Physical Exam Pelvic Reported By: Patient Intermediate Project Manager: Intermediate Project Manager: present Female Genitalia: Vulva: no masses, no atrophy, no lesions. Bladder/Urethra: normal meatus, no urethral discharge, no urethral mass, bladder non distended. Vagina no tenderness, no vesicle(s) or ulcers, no cystocele, no rectocele, erythema; *small amount of white vaginal discharge, thin/milky in texture*. Cervix: grossly normal, no discharge
--- OUTSIDE RECORDS SUMMARY | 2019-04-16 10:09 | XMS REPORT | Encounter Summary ---
:1970 Author Care Team Providers Name Role Phone Mychal Dai MD Primary Care Provider [phone] Jake Franco Covered Button Maker [phone] Reason for Visit Follow Up Visit Instructions 1. Postsurgical menopause estradiol, serum 2. Candidiasis of vagina Diflucan 100 mg tablet 3. Acute cystitis urinalysis, dipstick Discussion Note At least 15 min. of face to face time with the patient, >50% spent on counseling. Patient educational handouts: No information available. Plan of Care Reminders Provider Appointments None recorded. Lab Urinalysis, In-House Results Dipstick 01/07/2019 Estradiol, [facility] 01/07/2019 [facility] ([facility] (Xray) Referral None recorded. [...] 100 mg tablet Take 1 tablet every month by oral route. escitalopram 10 mg tablet escitalopram 20 mg [...] BMI Blood Pressure 5 ft 2 in 158.6 lbs 29 kg/m2 109/80 mm[Hg] Lab Results Date Name Specimen Result Interpretation Description Value Range Status Address 01/07/2019 Urinalysis, Leukocytes Negative In-House Dipstick Results: For Internal Use Only Nitrite negative In-House Results: For Internal Use Only Urobilinogen .2 In-House Results: For Internal Use Only Protein Negative In-House Results: For Internal Use Only Ph 6.5 In-House Results: For Internal Use Only Blood Negative In-House Results: For Internal Use Only Specific 1.010 In-House [place] Results: For Internal Use Only Ketone Negative In-House Results: For Internal Use Only Bilirubin Negative In-House Results: For Internal Use Only Glucose Negative In-House Results: For Internal Use Only Appearance Clear In-House Results: For Internal Use Only Color Yellow In-House Results: For Internal Use Only 12/27/2018 Culture, Bacteria Ur Final [place] [facility] (Lab): [address] [place] [address] 12/27/2018 Antibiotic Susceptible Gentamicin <4 ug/mL Not [place] Sensitivity Islt French Reported [facility] (Lab): [address] [place] [address] Resistant Ampicillin >16 ug/mL Not [place] Islt French Reported [facility] (Lab): [address] [place] [address] Susceptible Cefazolin Islt <8 ug/mL Not [place] French Reported [facility] (Lab): [address] [place] [address] Susceptible Tmp Smx Islt =2/38 Not [place] [facility] ug/mL Reported [facility] (Lab): [address] [place] [address] Susceptible Tetracycline <4 ug/mL Not [place] Islt French Reported [facility] (Lab): [address] [place] [address] Susceptible Amoxicillin+cl =8/4 Not [place] av Islt French ug/mL Reported [facility] (Lab): [address] [place] [address] Susceptible Tobramycin <4 ug/mL Not [place] Islt French Reported [facility] (Lab): [address] [place] [address] Susceptible Nitrofurantoin <32 ug/mL Not [place] Islt French Reported [facility] (Lab): [address] [place] [address] Susceptible Cefotaxime <2 ug/mL Not [place] Islt French Reported [facility] (Lab): [address] [place] [address] Susceptible Cefepime Islt <8 ug/mL Not [place] French Reported [facility] (Lab): [address] [place] [address] Resistant Levofloxacin >4 ug/mL Not [place] Islt French Reported [facility] (Lab): [address] [place] [address] Susceptible Pip+tazo Islt <16 ug/mL Not [place] French Reported [facility] (Lab): [address] [place] [address] Susceptible Ceftazidime <1 ug/mL Not [place] Islt French Reported [facility] (Lab): [address] [place] [address] Susceptible Ceftriaxone <8 ug/mL Not [place] Islt French Reported [facility] (Lab): [address] [place] [address] Resistant Ciprofloxacin >2 ug/mL Not [place] Islt French Reported [facility] (Lab): [address] [place] [address] Susceptible Imipenem Islt <4 ug/mL Not [place] French Reported [facility] (Lab): [address] [place] [address] Resistant Ampicillin+sul =16/8 Not [place] geovany Islt French ug/mL Reported [facility] (Lab): [address] [place] [address] Susceptible Ertapenem Islt <2 ug/mL Not [place] French Reported [facility] (Lab): [address] [place] [address] Susceptible Aztreonam Islt <8 ug/mL Not [place] French Reported [facility] (Lab): [address] [place] [address] Susceptible Cefuroxime <4 ug/mL Not [place] Islt French Reported [facility] (Lab): [address] [place] [address] Susceptible Meropenem Islt <4 ug/mL Not [place] French Reported [facility] (Lab): [address] [place] [address] 12/27/2018 Urinalysis, Leukocytes Negative In-House Dipstick Results: For Internal Use Only Nitrite negative In-House Results: For Internal Use Only Urobilinogen .2 In-House Results: For Internal Use Only Protein Negative In-House Results: For Internal Use Only Ph 6.5 In-House Results: For Internal Use Only Blood Negative In-House Results: For Internal Use Only Specific 1.010 In-House [place] Results: For Internal Use Only Ketone Negative In-House Results: For Internal Use Only Bilirubin Negative In-House Results: For Internal Use Only Glucose Negative In-House Results: For Internal Use Only Appearance Clear In-House Results: For Internal Use Only Color Yellow In-House Results: For Internal Use Only 12/17/2018 Culture, Bacteria Ur no growth Final [place] [facility] Cult at [address] [place] [address] (Lab): [address] [place] [address] [place], Clue Cells negative In-House Vaginal Results: For Internal Use Only Wbcs positive In-House Results: For Internal Use Only Trichomonads negative In-House Results: For Internal Use Only Epithelial normal In-House Cells Results: For Internal Use Only Rbcs negative In-House Results: For Internal Use Only Allergies Code Code System Name Reaction Severity Status Onset 20341001 RxNorm Cipro Other Severe Active 751652 RxNorm Phenergan Facial Moderate Active Swelling Problems Name Status Onset Date Source Chronic Pain Active 08/15/2018 Gastroesophageal Reflux Disease Active 08/15/2018 Crohn's Disease of Small Intestine Active 08/15/2018 Endometriosis (Clinical) Active 08/15/2018 Multiple Joint Pain Active 08/15/2018 Postoperative Visit Active 08/29/2018 Skin Tag Active 10/17/2018 [place]'s Disease Active 11/19/2018 Persistent Insomnia Active 12/07/2018 Urinary Tract Infectious Disease Active 12/17/2018 Acute Cystitis Active 12/28/2018 Candidiasis of Vagina Active 01/07/2019 Postsurgical Menopause Active 01/07/2019 Procedures Date Name Performed by 05/01/2006 Hysterectomy Information not available Large Intestine Excision Information not available Cholecystectomy Information not available 12/27/2018 Unlisted Imaging Order [facility] (Imaging) [address] [place] [address] (Work Place) Vaccine List None recorded. Social History Tobacco Smoking Status Current Every Day Smoker Past Encounters 01/07/2019 Postsurgical Menopause; Candidiasis of Vagina; Acute Cystitis Jake Franco MD: [address], [address], [place] [address], Ph. [phone] 12/27/2018 Gynecologic Examination; Postsurgical Menopause; Candidiasis of Vagina; Screening for Malignant Neoplasm of Breast; Increased Frequency of Urination Jake Franco MD: [address], [address], [place] [address], Ph. [phone] 12/17/2018 Urinary Tract Infectious Disease Mychal Dai MD: [address], [address], [place] [address], Ph. 12/07/2018 Golden's Disease; Persistent Insomnia Mychal Dai MD: [address], [address], [place] [address], Ph. [phone] History of Present Illness Note: Follow up visit. Started estradiol two weeks ago for ERT, s/p hysterectomy, BSO at age 36. Shestill has occ. hot flashes but her moods are much improved. Previous symptoms of yeast vaginitis and UTI have resolved after extended treatment with Diflucan plus Monistat and Macrobid followed by Bactrim. Review of Systems None recorded. Physical Exam None recorded.
--- OUTSIDE RECORDS SUMMARY | 2019-04-16 10:09 | XMS REPORT | Encounter Summary ---
:1970 Author Reason for Visit Psychiatric Follow Up Instructions 1. Generalized anxiety disorder buspirone 15 mg tablet Lexapro 10 mg tablet 2. Panic disorder without agoraphobia clonazepam 1 mg tablet Seroquel 50 mg tablet Discussion Note Advised to call if any problems or issues. Patient educational handouts: No information available. Plan of Care Patient Instructions Continue current treatment. RTC 3-months or sooner if necessary. Reminders Provider Appointments Est on or around [facility] 06/18/2019 Jer Wang MD Lab None recorded. Referral None recorded. Procedures None recorded. Surgeries None recorded. Imaging None recorded. Medications Name Start Date acetaminophen 300 mg-codeine 30 mg tablet acetaminophen 300 mg-codeine 60 mg tablet alprazolam 1 mg tablet alprazolam 2 mg tablet amoxicillin 500 mg capsule buspirone 15 mg tablet Take 1 tablet 4 times a day by oral route. cefuroxime axetil 500 mg tablet celecoxib 100 mg capsule cephalexin 500 mg capsule chlorhexidine gluconate 0.12 % mouthwash cholestyramine (with sugar) 4 gram oral powder clindamycin HCl 300 mg capsule clonazepam 1 mg tablet Take 1 tablet 3 times a day by oral route as needed. Clotrimazole 3 Day 2 % vaginal cream Insert 1 applicatorful every day by vaginal route for 3 days. diazepam 10 mg tablet diazepam 5 mg tablet dicyclomine 10 mg capsule dicyclomine 20 mg tablet doxycycline hyclate 100 mg tablet escitalopram 20 mg tablet Take 0.5 tablet(s) every day by oral route. estradiol 1 mg tablet fluconazole 100 mg tablet fluconazole 150 mg tablet fluconazole 200 mg tablet gabapentin 300 mg capsule hydrocodone 5 mg-acetaminophen 325 mg tablet hydrocodone 7.5 mg-acetaminophen 325 mg tablet hydrocortisone 20 mg tablet Lexapro 10 mg tablet Take 1 tablet by mouth every morning. lidocaine 2 % mucosal jelly loperamide 2 mg capsule mesalamine 1.2 gram tablet,delayed release Take 2 tablets every day by oral route in the morning. metoclopramide 10 mg tablet metronidazole 500 mg tablet nitrofurantoin monohydrate/macrocrystals 100 mg capsule nystatin 100,000 unit/gram topical cream nystatin 100,000 unit/mL oral suspension oxycodone 10 mg tablet pantoprazole 40 mg tablet,delayed release Take 1 tablet every day by oral route. prednisone 10 mg tablet prednisone 20 mg tablet prednisone 5 mg tablet Proctozone-HC 2.5 % topical cream perineal applicator Seroquel 50 mg tablet Take 1 tablet every day by oral route at bedtime. Stelara 130 mg/26 mL intravenous solution Stelara 90 mg/mL subcutaneous syringe sulfamethoxazole 800 mg-trimethoprim 160 mg tablet Take 1 tablet every 12 hours by oral route for 3 days. Suprep Bowel Prep Kit 17.5 gram-3.13 gram-1.6 gram oral solution terconazole 0.4 % vaginal cream tramadol 50 mg tablet triamcinolone acetonide 0.5 % topical ointment valacyclovir 1 gram tablet Medications Administered None recorded. Vitals None recorded. Results Lab Results None recorded. Allergies Code Code System Name Reaction Severity Status Onset 251923 RxNorm Remeron Other Active 11/27/2017 530849 RxNorm Cipro Active 281247 RxNorm Phenergan Active 49348 RxNorm Trazodone Hives Active Problems Name Status Onset Date Source Anxiety Disorder Active 10/23/2017 Endometriosis (Clinical) Active 10/23/2017 Panic Disorder without Agoraphobia Active Generalized Anxiety Disorder Active Procedures Date Name Performed by Caesarean Section Information not available Total Hysterectomy Information not available Vaccine List None recorded. Social History Tobacco Smoking Status Current Every Day Smoker Past Encounters 03/18/2019 Generalized Anxiety Disorder; Panic Disorder without Agoraphobia Vj Wang MD: [address] [facility], [place] [address], Ph. [phone] History of Present Illness Psych Medication Management Reported By: Patient HPI: Medications: taking medications as directed, no side effects from medication. General overall feeling: feeling as well as can be expected Psychiatric General Follow-Up Reported By: Patient HPI: Context: relationship stress, poor family dynamics Associated Symptoms: Mood: no sadness. Anxiety: no generalized worry. Sleep: no insomnia. Appetite: no change Prior Treatment and Review:: Medication Compliance: greater than 90% Note: <p>Here for routine med. check. Reports doing okay. States he tried to call her son on hisbirthday but her ex- would not even answer call. Feels really sad about it. Compliant with meds. No AE. Sleep fair. Appetite okay. E/C okay. Mood okay. No new health issues. Home life remains unchanged. Has bear working out on daily basis and also doing yoga. Studies mu-ism 5-hours a day. DeniesETOH/drugs. No legal issues.</p> Review of Systems None recorded. Physical Exam Mental Status Exam Reported By: Patient Mental Status Exam: Appearance: well-groomed, clean. Behavior: eye contact, cooperative. Speech: clear. Perception: no hallucinations. Cognition: alert, oriented to situation, oriented to time, oriented to place, oriented to person, memory intact. Intelligence: average. Memory: remote, recent. Mood: euthymic. Affect: congruent to thought content. Insight: intact. Judgment: intact. Thought Processes: intact. Thought Content: unremarkable
[2019-04-16 10:53] LABS: Urine Specific Gravity 1.015 (1.005-1.030)
[2019-04-16 10:53] LABS: Urine Blood NEGATIVE (NEG); Urine Glucose NEGATIVE (NEG); Urine Protein NEGATIVE (NEG); Urine Specific Gravity 1.015 (1.005-1.030); Urine pH 8.5 (5.0-7.0)
[2019-04-16] MEDS ORDERED: HYDROMORPHONE HCL 1 MG/ML INJ ONE (11:25)
[2019-04-16] MEDS ORDERED: KETOROLAC 30 MG/ML INJ ONE (11:25)
[2019-04-16] MEDS ORDERED: ONDANSETRON 4 MG/2 ML VIAL ONE (11:26)
[2019-04-16] MEDS ORDERED: NA CHLORIDE 0.9% 1,000 ML ONE (11:26)
[2019-04-16 11:48] LABS: Absolute Lymphocytes (CBC) 2.7 K/uL (0.7-4.9); Basophils % 0.5 % (0-1.3); Hematocrit 41.5 % (36.0-45.0); MPV 6.5 fL (7.6-11.3); RBC Red Blood Cell Count 4.45 M/uL (3.86-4.86)
[2019-04-16 11:49] LABS: Bilirubin Direct 0.1 mg/dL (0-0.2); Bilirubin Total 0.4 mg/dL (0.2-1.0); Potassium 3.7 mmol/L (3.5-5.1); Protein, Total 6.1 g/dL (6.4-8.2)
[2019-04-16 11:58] LABS: Urine Bacteria <20 /HPF (<20); Urine Culture Reflex Order NOT NEEDED; Urine RBC <5 /HPF (NONE SEEN)
--- NOTE | 2019-04-16 12:22 | RAD REPORT ---
EXAM DESCRIPTION: CT - Abdomen Pelvis W Contrast - 04/16/2019 12:06 pm CLINICAL HISTORY: h/o crohn's ;Abd pain, history Crohn's disease, history pain pump, history of hyst erectomy and partial bowel resection COMPARISON: CT study September 2018 TECHNIQUE: Axial 5 millimeter thick images of the abdomen were obtained following oral contrast. IV contrast was administered via hand injected bolus. All CT scans are performed using dose optimization technique as appropriate and may include automated exposure control or mA/KV adjustment according to patient size. FINDINGS: No suspicious findings in the lung bases. The liver, spleen, and pancreas show no suspicious findings. Cholecystectomy clips are present. Bilia ry tree within normal limits for a post cholecystectomy patient. Symmetric renal function is seen with no hydronephrosis or suspicious renal mass. No pyelonephritis o r acute parenchymal process. Bilateral renal cysts are present. No adrenal abnormalities. No urinary bladder abnormality seen. Uterus is absent. Ovaries are absent or atrophic. Ovarian abnormality is no t suspected. No gastric dilatation or wall thickening. No contrast remains in the gastric lumen. No duodenum abnor mality seen. Ileum and jejunum are normal in diameter with no acute small bowel finding identifiable. Oral contrast has reached the rectum but does not adequately filled the left side of the colon. Patient is status post right hemicolectomy. In the right mid abdomen there is a small bowel colon jessica stomosis. Oral contrast has passed through this anastomosis without difficulty and the proximal small bowel loops are not dilated. Lora of the bowel at this anastomosis are slightly thickened and irreg ular. This pattern was seen previously. No significant edematous or inflammatory stranding in this re gion. Patient has a much more pronounced inflammatory pattern back on the September examination. Lumen of the anastomosis is suspected to be narrowed chronically. The narrowing is nonobstructive. No free air, free fluid, pneumatosis or focal acute inflammatory stranding. No mass or bulky lymphad enopathy. Small upper abdominal ventral hernia contains only fat. This is a new or matured finding fr om the postsurgical changes in the midline abdomen seen in September. No suspicious bony findings. No acute vascular finding. IMPRESSION: Thickened irregular lora and narrowed lumen evident at the ileocolonic anastomosis in t he right mid abdomen. Oral contrast passed easily through the anastomosis and small bowel loops proximal to the anastomosis are not dilated. A mild acute infectious/ inflammatory process at the anastomosis may be present. The baseline for thi s anastomosis is not known. The postsurgical comparison study September 2018 showed a much more pronounced infectious/inflammatory process in this region. No free air, abscess or surgically emergent finding.
[2019-04-16] MEDS ORDERED: HYDROMORPHONE HCL 2 MG/ML inj ONE (12:29)
[2019-04-16] MEDS ORDERED: PIPER/TAZO/NS 3.375gm 3.375 GM/100 ML BAG ONE (13:40)
--- NOTE | 2019-04-16 14:38 | ER ---
Nurse's Notes [facility] Name: Angela Rodriguez Age: 48 yrs Sex: Female : 1970 Arrival Date: 04/16/2019 Time: 10:03 Bed 8 Private MD: Diagnosis: Acute abdominal pain;Ileocolonic Anastomosis Inflammation Presentation: 04/16 10:15 Presenting complaint: Patient states: "Crohns flare up" Saw GI doctor 6 days ago, given ss at Medrol dose [place] and felt better for 2 days, but then began having diarrhea, abd pain and nausea that is getting worse. Transition of care: patient was not received from another setting of care. Onset of symptoms was April 10, 2019. Risk Assessment: Do you want to hurt yourself or someone else? Patient reports no desire to harm self or others. Initial Sepsis Screen: Does the patient have a suspected source of infection? No. Patient's initial sepsis screen is negative. Care prior to arrival: None. 10:15 Method Of Arrival: Ambulatory ss 10:15 Acuity: LIZZY 3 ss 10:25 Initial Sepsis Screen: Does the patient meet any 2 criteria? No. Patient's initial aa5 sepsis screen is negative. Does the patient have a suspected source of infection? No. Patient's initial sepsis screen is negative. Historical: - Allergies: 10:17 Ciprofloxacin; ss 10:17 Phenergan; ss - PMHx: 10:17 adrenal insufficiency; Bipolar disorder; Chronic pain; Crohn's; Hypothyroidism; ss Endometrosis; - PSHx: 10:17 Pain Pump -Dilaudid; ss - Immunization history:: Adult Immunizations up to date. - Social history:: Smoking status: Patient uses tobacco products, smokes one pack cigarettes per day. - Ebola Screening: : Patient denies exposure to infectious person Patient denies travel to an Ebola-affected area in the 21 days before illness onset. - Family history:: not pertinent. - Hospitalizations: : No recent hospitalization is reported. Screenin:30 Abuse screen: Denies threats or abuse. Nutritional screening: No deficits noted. aa5 Tuberculosis screening: No symptoms or risk factors identified. Fall Risk None identified. Assessment: 10:25 General: Appears uncomfortable, Behavior is calm, cooperative. Pain: Complains of pain aa5 in left upper quadrant and right upper quadrant Pain does not radiate. Pain currently is 10 out of 10 on a pain scale. Quality of pain is described as sharp, shooting, Pain began 2-3 days ago. Is continuous. Neuro: Level of Consciousness is awake, alert, obeys commands, Oriented to person, place, time, situation. Cardiovascular: Patient's skin is warm and dry. Respiratory: Airway is patent Respiratory effort is even, unlabored, Respiratory pattern is regular, symmetrical. GI: Abdomen is round Bowel sounds present X 4 quads. Abd is soft X 4 quads Abdomen is tender to palpation in right upper quadrant and left upper quadrant Reports diarrhea, nausea, Patient currently denies vomiting. : No signs and/or symptoms were reported regarding the genitourinary system. EENT: No signs and/or symptoms were reported regarding the EENT system. Derm: Skin is pink, warm \\T\\ dry. Musculoskeletal: Range of motion: intact in all extremities. 10:51 Reassessment: Pt finished CT oral contrast, CT notified . aa5 11:40 Reassessment: Patient is alert, oriented x 3, equal unlabored respirations, skin aa5 warm/dry/pink. Awaiting CT Scan. . 12:40 Reassessment: Patient is alert, oriented x 3, equal unlabored respirations, skin aa5 warm/dry/pink. Patient states feeling better. Pain: Pain currently is 3 out of 10 on a pain scale. 12:40 Reassessment: Awaiting CT scan results, pt notified of wait time.. aa5 13:20 Reassessment: Pt resting in bed with eyes closed after ambulating to the restroom with aa5 steady gait. . 14:40 Reassessment: Patient is alert, oriented x 3, equal unlabored respirations, skin aa5 warm/dry/pink. Awaiting Zosyn to complete for d/c home. 14:50 Reassessment: Patient is alert, oriented x 3, equal unlabored respirations, skin aa5 warm/dry/pink. Vital Signs: 10:17 BP 124 / 86; Pulse 66; Resp 16; Temp 97.4(TE); Pulse Ox 97% on R/A; Weight 70.31 kg; dh3 Height 5 ft. 2 in. (157.48 cm); Pain 10/10; 11:30 BP 122 / 80; Pulse 65; Resp 18 S; Pulse Ox 98% on R/A; aa5 12:40 Resp 14 S; Pulse Ox 86% on R/A; aa5 12:40 Pulse Ox 95% on 3 lpm NC; aa5 13:45 BP 116 / 81; Pulse 61; Resp 18; Pulse Ox 97% on R/A; vc 14:30 BP 114 / 76; Pulse 62; Resp 16 S; Temp 98.0(TE); Pulse Ox 96% on R/A; Pain 3/10; aa5 10:17 Body Mass Index 28.35 (70.31 kg, 157.48 cm) dh3 ED Course: 10:03 Patient arrived in ED. rg4 10:14 Araceli Syed, ANANYA is Primary Nurse. aa5 10:17 Triage completed. ss 10:17 Arm band placed on right wrist. ss 10:20 Jorge L Bañuelos MD is Attending Physician. wa 10:25 Patient has correct armband on for positive identification. Placed in gown. Bed in low aa5 position. Call light in reach. Side rails up X2. Pulse ox on. NIBP on. 10:26 Urine collected: clean catch specimen, clear. dh3 10:50 Missed attempt(s): 22 gauge in left forearm. Bleeding controlled, band aid applied, aa5 catheter tip intact. 10:51 Missed attempt(s): 22 gauge in right forearm. Bleeding controlled, band aid applied, aa5 catheter tip intact. 11:22 Inserted saline lock: 18 gauge in right EJ, using aseptic technique. Blood collected. bp 14:50 IV discontinued, intact, bleeding controlled, No redness/swelling at site. Pressure aa5 dressing applied. 14:50 No provider procedures requiring assistance completed. aa5 Administered Medications: 11:30 Drug: Zofran 4 mg Route: IVP; Site: right jugular; aa5 16:01 Follow up: Response: No adverse reaction; follow up at 1140 aa5 11:30 Drug: NS 0.9% 1000 ml Route: IV; Rate: 1 bolus; Site: right jugular; aa5 16:00 Follow up: IV Status: Completed infusion; IV Intake: 1000ml ; follow up at 1230 aa5 11:32 Drug: TORadol 30 mg Route: IVP; Site: right jugular; aa5 16:01 Follow up: Response: No adverse reaction; follow up at 1140 aa5 11:32 Drug: Dilaudid 1 mg Route: IVP; Site: right jugular; aa5 16:00 Follow up: Response: No adverse reaction; follow up at 1140 aa5 12:30 Drug: Dilaudid 2 mg Route: IVP; Site: right jugular; aa5 16:00 Follow up: Response: Pain is decreased; follow up at 1240 aa5 13:46 Drug: Zosyn 3.375 grams Route: IVPB; Infused Over: 60 mins; Site: right jugular; aa5 15:59 Follow up: Response: No adverse reaction; IV Status: Completed infusion; completed at aa5 1446 Point of Care Testing: Guaiac: 11:29 Stool Guaiac: Negative; Stool Hemoccult Control: Pass; aa5 11:[address] Bañuelos [facility] Intake: 16:00 IV: 1000ml; Total: 1000ml. 5 Outcome: 14:37 Discharge ordered by . ri 14:50 Discharged to home ambulatory, with friend. [facility] 14:50 Condition: improved 14:50 Discharge instructions given to patient, Instructed on discharge instructions, follow up and referral plans. medication usage, Demonstrated understanding of instructions, follow-up care, medications, Prescriptions given X 2. 14:55 Patient left the ED. bd Signatures: Xi Lopes Audri RN ANANYA 5 Alena Youngblood RN RN ss Garcia, Rubi [facility] Tahira Laura [facility] Jorge L Bañuelos MD MD wa Peltier, Brian, RN RN bp Calcote, Vanessa, RN RN vc Corrections: (The following items were deleted from the chart) 10:26 10:17 Resp 16bpm; 70.31 kg; Height 5 ft. 2 in.; BMI: 28.3; Pain 10/10; [facility] 12:50 12:40 Reassessment: Awaiting CT scan, pt notified of wait time.. 5 aa5 15:59 14:46 Response: No adverse reaction; IV Status: Completed infusion [facility] 16:00 12:40 Response: Pain is decreased 5 16:00 11:40 Response: No adverse reaction [facility] 16:00 12:30 IV Status: Completed infusion; IV Intake: 1000ml aa5 aa5 16:00 14:46 Response: No adverse reaction; IV Status: Completed infusion aa5 aa5 16: 11:40 Response: No adverse reaction aa5 aa5 16: 11:40 Response: No adverse reaction aa5 aa5 19:10 15:00 BP 114 / 76; Pulse 62bpm; Resp 16bpm; Spontaneous; Pulse Ox 96% RA; Temp 98.0F aa5 Temporal; Pain 3/10; aa5 19: 14:30 Reassessment: Patient is alert, oriented x 3, equal unlabored respirations, skin aa5 warm/dry/pink. Awaiting Zosyn to complete for d/c home. aa5
--- NOTE | 2019-04-16 14:39 | EDPHYS ---
Physician Documentation [facility] Name: Angela Rodriguez Age: 48 yrs Sex: Female : 1970 Arrival Date: 04/16/2019 Time: 10:03 Bed 8 Private MD: ED Physician Jorge L Bañuelos HPI: 04/16 10:34 This 48 yrs old Female presents to ER via Ambulatory with complaints of wa Chrons Flare Up. 10:34 The patient presents with abdominal pain in the right upper quadrant, in the left upper wa quadrant. Onset: The symptoms/episode began/occurred 6 day(s) ago. The symptoms do not radiate. Associated signs and symptoms: Pertinent positives: diarrhea, nausea, Pertinent negatives: chest pain, dysuria, fever, headache, hematuria, palpitations, shortness of breath, vomiting. The symptoms are described as crampy. Modifying factors: The symptoms are alleviated by nothing, the symptoms are aggravated by nothing. Severity of pain: At its worst the pain was severe in the emergency department the pain is unchanged. The patient has experienced similar episodes in the past, chronically. The patient has been recently seen by a physician: saw her GI initially and prescribed a medrol dose pack. states pain improved for 2 days. now pain is back. h/o crohn's. chronic abd pain on dilaudid pump. states profuse diarrhea. denies vomiting. admits to nausea. Historical: - Allergies: 10:17 Ciprofloxacin; ss 10:17 Phenergan; ss - PMHx: 10:17 adrenal insufficiency; Bipolar disorder; Chronic pain; Crohn's; Hypothyroidism; ss Endometrosis; - PSHx: 10:17 Pain Pump -Dilaudid; ss - Immunization history:: Adult Immunizations up to date. - Social history:: Smoking status: Patient uses tobacco products, smokes one pack cigarettes per day. - Ebola Screening: : Patient denies exposure to infectious person Patient denies travel to an Ebola-affected area in the 21 days before illness onset. - Family history:: not pertinent. - Hospitalizations: : No recent hospitalization is reported. ROS: 10:37 Constitutional: Negative for fever, chills, and weight loss, Eyes: Negative for injury, wa pain, redness, and discharge, ENT: Negative for injury, pain, and discharge, Neck: Negative for injury, pain, and swelling, Cardiovascular: Negative for chest pain, palpitations, and edema, Respiratory: Negative for shortness of breath, cough, wheezing, and pleuritic chest pain, Back: Negative for injury and pain, : Negative for injury, bleeding, discharge, and swelling, MS/Extremity: Negative for injury and deformity, Skin: Negative for injury, rash, and discoloration, Neuro: Negative for headache, weakness, numbness, tingling, and seizure, Psych: Negative for depression, anxiety, suicide ideation, homicidal ideation, and hallucinations. 10:37 Abdomen/GI: Positive for abdominal pain, nausea, diarrhea, Negative for vomiting. 10:37 All other systems are negative. Exam: 10:38 Constitutional: This is a well developed, well nourished patient who is awake, alert, wa and in no acute distress. Head/Face: Normocephalic, atraumatic. Eyes: Pupils equal round and reactive to light, extra-ocular motions intact. Lids and lashes normal. Conjunctiva and sclera are non-icteric and not injected. Cornea within normal limits. Periorbital areas with no swelling, redness, or edema. ENT: Nares patent. No nasal discharge, no septal abnormalities noted. Tympanic membranes are normal and external auditory canals are clear. Oropharynx with no redness, swelling, or masses, exudates, or evidence of obstruction, uvula midline. Mucous membranes moist. Neck: Trachea midline, no thyromegaly or masses palpated, and no cervical lymphadenopathy. Supple, full range of motion without nuchal rigidity, or vertebral point tenderness. No Meningismus. Chest/axilla: Normal chest wall appearance and motion. Nontender with no deformity. No lesions are appreciated. Cardiovascular: Regular rate and rhythm with a normal S1 and S2. No gallops, murmurs, or rubs. Normal PMI, no JVD. No pulse deficits. Respiratory: Lungs have equal breath sounds bilaterally, clear to auscultation and percussion. No rales, rhonchi or wheezes noted. No increased work of breathing, no retractions or nasal flaring. Back: No spinal tenderness. No costovertebral tenderness. Full range of motion. Skin: Warm, dry with normal turgor. Normal color with no rashes, no lesions, and no evidence of cellulitis. MS/ Extremity: Pulses equal, no cyanosis. Neurovascular intact. Full, normal range of motion. Neuro: Awake and alert, GCS 15, oriented to person, place, time, and situation. Cranial nerves II-XII grossly intact. Motor strength 5/5 in all extremities. Sensory grossly intact. Cerebellar exam normal. Normal gait. Psych: Awake, alert, with orientation to person, place and time. Behavior, mood, and affect are within normal limits. 10:38 Abdomen/GI: Inspection: abdomen appears normal, Bowel sounds: normal, in all quadrants, Palpation: soft, in all quadrants, moderate abdominal tenderness, in the right upper quadrant and left upper quadrant. Vital Signs: 10:17 BP 124 / 86; Pulse 66; Resp 16; Temp 97.4(TE); Pulse Ox 97% on R/A; Weight 70.31 kg; 3 Height 5 ft. 2 in. (157.48 cm); Pain 10/10; 11:30 BP 122 / 80; Pulse 65; Resp 18 S; Pulse Ox 98% on R/A; aa5 12:40 Resp 14 S; Pulse Ox 86% on R/A; aa5 12:40 Pulse Ox 95% on 3 lpm NC; aa5 13:45 BP 116 / 81; Pulse 61; Resp 18; Pulse Ox 97% on R/A; vc 14:30 BP 114 / 76; Pulse 62; Resp 16 S; Temp 98.0(TE); Pulse Ox 96% on R/A; Pain 3/10; aa5 10:17 Body Mass Index 28.35 (70.31 kg, 157.48 cm) [facility] MDM: 10:21 Patient medically screened. ok 10:38 Differential diagnosis: consider Crohns' flare. infectious etiology? will eval, treat wa and reassess. 13:32 Data reviewed: vital signs, nurses notes. Test interpretation: by ED physician or wa midlevel provider: labs are noted wnl. CT abd/pelvis: Thickened, irregular lora with narrowing of the lumen evident at the ileocolonic anastomosis. Mild acute infectious vs inflammatory process noted. Response to treatment: the patient's symptoms have mildly improved after treatment. Physician consultation: Marv Allen MD. ED course: given IV abx. spoke with her GI doctor Tiffany, advises to transfer pt to [facility] for further evaluation as too complicated due to underlying previous surgery. 14:35 Special discussion: discussed results with pt. states can follow up with her docs at [facility] as outpt. feels much better. zosyn IV given. will d/c with abx and pain meds. . 04/16 10:30 Order name: Basic Metabolic Panel ok 04/16 10:30 Order name: CBC with Diff ok 04/16 10:30 Order name: Hepatic Function ok 04/16 10:30 Order name: Lipase ok 04/16 10:30 Order name: Urine Microscopic Only ok 04/16 10:34 Order name: Occult Blood ok 04/16 10:36 Order name: Urine Dipstick--Ancillary (enter results) 04/16 10:40 Order name: Urine --Ancillary (enter results) 04/16 10:54 Order name: Urine Dipstick-Ancillary; Complete Time: 11:34 [facility] 04/16 10:54 Order name: Urine --Ancillary; Complete Time: 11:34 [facility] 04/16 11:33 Order name: Occult Blood--Ancillary 04/16 11:47 Order name: Occult Blood--Ancillary [facility] 04/16 11:49 Order name: Basic Metabolic Panel; Complete Time: 13:11 [facility] 04/16 11:50 Order name: Liver (Hepatic) Function; Complete Time: 13:11 [facility] 04/16 10:30 Order name: IV Saline Lock; Complete Time: 11:35 ok 04/16 10:30 Order name: Labs collected and sent; Complete Time: 11:35 ok 04/16 10:30 Order name: Urine Dipstick-Ancillary (obtain specimen); Complete Time: 10:32 ok 04/16 10:31 Order name: Urine Test (obtain specimen); Complete Time: 10:32 ok 04/16 10:32 Order name: CT Abd/Pelvis - PO and IV Contrast ok 04/16 11:50 Order name: Lipase; Complete Time: 13:11 [facility] 04/16 11:51 Order name: CBC with Automated Diff; Complete Time: 13:11 [facility] 04/16 11:59 Order name: Urine Microscopic Only; Complete Time: 13:11 [facility] 04/16 12:24 Order name: CT; Complete Time: 13:13 [facility] 04/16 13:05 Order name: Occult Blood; Complete Time: 13:10 EDMS Administered Medications: 11:30 Drug: Zofran 4 mg Route: IVP; Site: right jugular; aa5 16:01 Follow up: Response: No adverse reaction; follow up at 1140 aa5 11:30 Drug: NS 0.9% 1000 ml Route: IV; Rate: 1 bolus; Site: right jugular; aa5 16:00 Follow up: IV Status: Completed infusion; IV Intake: 1000ml ; follow up at 1230 aa5 11:32 Drug: TORadol 30 mg Route: IVP; Site: right jugular; aa5 16:01 Follow up: Response: No adverse reaction; follow up at 1140 aa5 11:32 Drug: Dilaudid 1 mg Route: IVP; Site: right jugular; aa5 16:00 Follow up: Response: No adverse reaction; follow up at 1140 aa5 12:30 Drug: Dilaudid 2 mg Route: IVP; Site: right jugular; aa5 16:00 Follow up: Response: Pain is decreased; follow up at 1240 aa5 13:46 Drug: Zosyn 3.375 grams Route: IVPB; Infused Over: 60 mins; Site: right jugular; aa5 15:59 Follow up: Response: No adverse reaction; IV Status: Completed infusion; completed at aa5 1446 Point of Care Testing: Guaiac: 11:29 Stool Guaiac: Negative; Stool Hemoccult Control: Pass; aa5 11:[address] Bañuelos aa5 Disposition: 04/16/19 14:37 Discharged to Home. Impression: Acute abdominal pain, Ileocolonic Anastomosis Inflammation. - Condition is Stable. - Discharge Instructions: Abdominal Pain, Adult, [id number]. - Prescriptions for Tylenol- Codeine #3 300-30 mg Oral Tablet - take 2 tablets by ORAL route every 6 hours As needed; 15 tablet. Augmentin 875- 125 mg Oral Tablet - take 1 tablet by ORAL route every 12 hours for 10 days; 20 tablet. - Medication Reconciliation Form, Thank You Letter, Antibiotic Education, Prescription Opioid Use form. - Follow up: Private Physician; When: 1 - 2 days; Reason: Recheck today's complaints. - Problem is an acute exacerbation. - Symptoms have improved. - Notes: take the medication as prescribed. see your doctor int [facility] for further evaluation of inflammed bowel. return here for any worsening concerns you may have Signatures: Dispatcher [employer] EDXi Ledezma Araceli Rider RN RN aa5 Alena Youngblood RN RN ss Jorge L Bañuelos MD MD wa Corrections: (The following items were deleted from the chart) 14:55 14:37 04/16/2019 14:37 Discharged to Home. Impression: Acute abdominal pain; bd Ileocolonic Anastomosis Inflammation. Condition is Stable. Forms are Medication Reconciliation Form, Thank You Letter, Antibiotic Education, Prescription Opioid Use. Follow up: Private Physician; When: 1 - 2 days; Reason: Recheck today's complaints. Problem is an acute exacerbation. Symptoms have improved. dominique
[2019-04-16 15:09] VITALS: TEMP 97.4
[2019-04-16 15:11] VITALS: BP 116/81; O2SAT 97
== END 2019-04-16 14:55 | disposition home or self-care (01) ==
LOC: ER 10:02
DX: Z98.0 Intestinal bypass and anastomosis status (principal); K50.90 Crohn's disease, unspecified, without complications; F17.210 Nicotine dependence, cigarettes, uncomplicated; Z97.8 Presence of other specified devices; Z88.1 Allergy status to other antibiotic agents; Z88.8 Allergy status to other drugs, medicaments and biological substances
CPT/HCPCS: 96365; 96361; 85025; 80048; 36415; 82274; 81025; 80076; 82272; 83690; 74177; 96375; 99284; 96366; Q9967; J1170 ×2; J2543; J7030; J2405; 81003; 81015

== ENCOUNTER 2019-07-27 15:22 | Emergency (ER) | payer OTHER ==
--- OUTSIDE RECORDS SUMMARY | 2019-07-27 15:27 | XMS REPORT ---
:1970 Author Organization [facility] Address [address] [place] [address] [address]. [address] [place] [address] Care Team Providers Name Role Phone DR EDGARD CASH Unavailable Unavailable AMERICO GAY Unavailable Unavailable ALEJANDRO, JANI Unavailable Unavailable DICKINSONSANTIAGO Unavailable Unavailable SHAMSEE, PAPI-JOSE ALEJANDRO-AHMED Unavailable Unavailable AHMED, RAEES - Unavailable Unavailable OEI, RADHA Unavailable Unavailable Problems This patient has no known problems. Allergies, Adverse Reactions, Alerts This patient has no known allergies or adverse reactions. Medications This patient has no known medications. Encounters Start End Encounter Admission Attending Care Care Encounter Date/Time Date/Time Type Type Clinicians Facility Department ID 2016-11-04 Inpatient C SHAILESH [facility] [place] [facility] [id number] 09:30:00 EDGARD 2016-07-15 2016-07-19 Inpatient 1 HARSHIL [facility] [place] [id number] 18:47:00 10:30:00 BLAKE 2013-11-19 2013-11-19 Emergency E MOOK, [facility] [id number] 10:08:00 12:55:00 RADHA Results Test Description Test Time Test Comments Text Results Atomic Results Result Comments CT, ABDOMEN 2019-06-19 10:26:[address] of the abdomen and pelvis, with contrast Clinical History: Crohn's disease with complication, unspecified gastrointestinal tract location Technique: CT of the abdomen and pelvis is performed with intravenous contrast administration. This exam was performed according to our departmental dose optimization program which includes automated exposure control, adjustment of the mA and/or kV according to patient's size and/or use of iterative reconstructive technique. Comparison Film: November 07, 2018 Discussion: Visualized lower thorax is unremarkable. Liver appears mildly fatty. No liver lesion is identified. No biliary ductal dilatation, status post cholecystectomy. The spleen, pancreas, and adrenal glands are normal. There are small renal cysts, a dominant hypodensity on the left contains punctate calcification peripherally, and measures 3.6 cm, without interval change; it does not measure simple fluid density and probably reflects associated with proteinaceous content. No hydronephrosis, suspicious mass lesion, or radiopaque stone. There is liquid content in colon which may reflect diarrhea. Status post right hemicolectomy with ileocolic anastomosis. Previously seen inflammation/scarring adjacent to the anastomosis has significantly decreased. There is suspected mild segmental wall thickening in the descending and sigmoid colon. Small bowel appears unremarkable. There is no fistula, or abscess identified. No significant mesenteric, or pericolonic edema. In the pelvis, bladder is normal. Uterus is absent. No adnexal mass. There is no ascites, free air, or lymphadenopathy. Osseous structures demonstrate degenerative change. A mild wedge-shaped deformity of L2 vertebral body is chronic. There is a right-sided implanted spinal stimulator device. Impression: Previously seen inflammatory change adjacent to the ileocolic anastomosis has significantly decreased. No abscess or fistula is identified. Question segmental mild wall thickening in the descending and sigmoid colon. Stable left renal hypodensity that does not measure simple fluid density, probably reflecting proteinaceous content, consider correlation with ultrasound. Mild hepatic steatosis. Status post hysterectomy. Signed: Chelsey Billings Verified Date/Time: 06/19/2019 10:26:36 [place] Location: [facility] [id number] [facility] Consult [place] Room ESIUM 2018-11-16 08:01:00 Test Item Value Reference Range Comments MAGNESIUM (BEAKER) (test gkmv=823) 1.8 mg/dL 1.6-2.6 Specimen moderately hemolyzed BASIC METABOLIC [id number] 08:01:00 Test Item Value Reference Range Comments SODIUM (BEAKER) (test 137 meq/L 136-145 uxid=318) POTASSIUM (BEAKER) (test 4.5 meq/L 3.5-5.1 Specimen moderately vskp=842) hemolyzed CHLORIDE (BEAKER) (test 109 meq/L 98-107 dxlu=802) CO2 (BEAKER) (test 19 meq/L 22-29 awbf=007) BLOOD UREA NITROGEN 9 mg/dL 7-21 (BEAKER) (test gbvj=976) CREATININE (BEAKER) (test 0.71 mg/dL 0.57-1.25 Specimen moderately hsrl=010) hemolyzed GLUCOSE RANDOM (BEAKER) 85 mg/dL 70-105 (test tjvb=282) CALCIUM (BEAKER) (test 9.0 mg/dL 8.4-10.2 fyag=910) EGFR (BEAKER) (test 88 mL/min/1.73 sq m ESTIMATED GFR IS NOT hhqi=0088) ACCURATE CREATININE CLEARANCE IN PREDICTING GLOMERULAR FILTRATION RATE. ESTIMATED GFR IS NOT APPLICABLE FOR DIALYSIS PATIENTS. CBC W/PLT COUNT & AUTO [id number] 05:59:00 Test Item Value Reference Range Comments WHITE BLOOD CELL COUNT (BEAKER) (test loae=093) 7.3 K/ L 3.5-10.5 RED BLOOD CELL COUNT (BEAKER) (test gwbj=608) 4.15 M/ L 3.93-5.22 HEMOGLOBIN (BEAKER) (test xeoq=357) 12.4 GM/DL 11.2-15.7 HEMATOCRIT (BEAKER) (test oynl=974) 38.4 % 34.1-44.9 MEAN CORPUSCULAR VOLUME (BEAKER) (test cmpt=923) 92.5 fL 79.4-94.8 MEAN CORPUSCULAR HEMOGLOBIN (BEAKER) (test 29.9 pg 25.6-32.2 zamc=937) MEAN CORPUSCULAR HEMOGLOBIN CONC (BEAKER) (test 32.3 GM/DL 32.2-35.5 iare=348) RED CELL DISTRIBUTION WIDTH (BEAKER) (test 14.4 % 11.7-14.4 puon=641) PLATELET COUNT (BEAKER) (test vuhf=971) 275 K/CU MM 150-450 MEAN PLATELET VOLUME (BEAKER) (test decb=717) 8.9 fL 9.4-12.3 NUCLEATED RED BLOOD CELLS (BEAKER) (test 0 /100 WBC 0-0 rjll=630) NEUTROPHILS RELATIVE PERCENT (BEAKER) (test 49 % jirx=662) LYMPHOCYTES RELATIVE PERCENT (BEAKER) (test 41 % huut=502) MONOCYTES RELATIVE PERCENT (BEAKER) (test 7 % elbo=867) EOSINOPHILS RELATIVE PERCENT (BEAKER) (test 3 % knfj=562) BASOPHILS RELATIVE PERCENT (BEAKER) (test 0 % xses=032) NEUTROPHILS ABSOLUTE COUNT (BEAKER) (test 3.54 K/ L 1.56-6.13 ftud=107) LYMPHOCYTES ABSOLUTE COUNT (BEAKER) (test 2.99 K/ L 1.18-3.74 pvks=019) MONOCYTES ABSOLUTE COUNT (BEAKER) (test 0.52 K/ L 0.24-0.36 izfn=945) EOSINOPHILS ABSOLUTE COUNT (BEAKER) (test 0.20 K/ L 0.04-0.36 bnft=919) BASOPHILS ABSOLUTE COUNT (BEAKER) (test 0.03 K/ L 0.01-0.08 duip=153) IMMATURE GRANULOCYTES-RELATIVE PERCENT (BEAKER) 0 % 0-1 (test fwzr=9275) [id number] 07:04:00 Test Item Value Reference Range Comments MAGNESIUM (BEAKER) (test dfeu=414) 1.8 mg/dL 1.6-2.6 BASIC METABOLIC [id number] 07:04:00 Test Item Value Reference Range Comments SODIUM (BEAKER) (test 139 meq/L 136-145 ouxr=760) POTASSIUM (BEAKER) (test 4.5 meq/L 3.5-5.1 jxbj=894) CHLORIDE (BEAKER) (test 110 meq/L 98-107 idqw=135) CO2 (BEAKER) (test 23 meq/L 22-29 ayzx=064) BLOOD UREA NITROGEN 13 mg/dL 7-21 (BEAKER) (test ldbj=179) CREATININE (BEAKER) (test 0.76 mg/dL 0.57-1.25 uzvp=214) GLUCOSE RANDOM (BEAKER) 100 mg/dL 70-105 (test jffj=781) CALCIUM (BEAKER) (test 9.2 mg/dL 8.4-10.2 lchq=236) EGFR (BEAKER) (test 82 mL/min/1.73 sq m ESTIMATED GFR IS NOT npwb=6103) ACCURATE CREATININE CLEARANCE IN PREDICTING GLOMERULAR FILTRATION RATE. ESTIMATED GFR IS NOT APPLICABLE FOR DIALYSIS PATIENTS. CORTISOL,60 [id number] 07:01:00 Test Item Value Reference Range Comments CORTISOL BASELINE NETWORKED (BEAKER) (test < mcg/dL rllk=5563) CORTISOL 30 MINUTE NETWORKED (BEAKER) (test 6.0 mcg/dL uppo=1927) CORTISOL, 60 MINUTE (BEAKER) (test fomt=4600) 7.0 ug/dL ACTH STIMULATION TEST INTERPRETATION GUIDELINES(Synonyms: [...] serum cortisollevel 60 minutes after cosyntropin administration.CORTISOL,30 [id number] 07:01:00 Test Item Value Reference Range Comments CORTISOL BASELINE NETWORKED (BEAKER) (test < mcg/dL qhkm=8763) CORTISOL, 30 MINUTE (BEAKER) (test qnub=8481) 6.0 ug/dL ACTH STIMULATION TEST INTERPRETATION GUIDELINES(Synonyms: [...] after cosyntropin administration.CBC W/PLT COUNT & AUTO [id number] 05:46:00 Test Item Value Reference Range Comments WHITE BLOOD CELL COUNT (BEAKER) (test lzyy=071) 6.0 K/ L 3.5-10.5 RED BLOOD CELL COUNT (BEAKER) (test oprv=081) 4.25 M/ L 3.93-5.22 HEMOGLOBIN (BEAKER) (test oekc=487) 12.6 GM/DL 11.2-15.7 HEMATOCRIT (BEAKER) (test okhv=745) 40.4 % 34.1-44.9 MEAN CORPUSCULAR VOLUME (BEAKER) (test rhqw=967) 95.1 fL 79.4-94.8 MEAN CORPUSCULAR HEMOGLOBIN (BEAKER) (test 29.6 pg 25.6-32.2 uioz=410) MEAN CORPUSCULAR HEMOGLOBIN CONC (BEAKER) (test 31.2 GM/DL 32.2-35.5 gctq=080) RED CELL DISTRIBUTION WIDTH (BEAKER) (test 14.6 % 11.7-14.4 bkyt=311) PLATELET COUNT (BEAKER) (test xinp=354) 223 K/CU MM 150-450 MEAN PLATELET VOLUME (BEAKER) (test rzmz=518) 8.6 fL 9.4-12.3 NUCLEATED RED BLOOD CELLS (BEAKER) (test 0 /100 WBC 0-0 ahqr=313) NEUTROPHILS RELATIVE PERCENT (BEAKER) (test 50 % jnob=615) LYMPHOCYTES RELATIVE PERCENT (BEAKER) (test 37 % gsvs=390) MONOCYTES RELATIVE PERCENT (BEAKER) (test 8 % ryew=587) EOSINOPHILS RELATIVE PERCENT (BEAKER) (test 5 % ricr=211) BASOPHILS RELATIVE PERCENT (BEAKER) (test 1 % derm=654) NEUTROPHILS ABSOLUTE COUNT (BEAKER) (test 3.01 K/ L 1.56-6.13 acoc=115) LYMPHOCYTES ABSOLUTE COUNT (BEAKER) (test 2.24 K/ L 1.18-3.74 smkz=961) MONOCYTES ABSOLUTE COUNT (BEAKER) (test 0.45 K/ L 0.24-0.36 gwzu=679) EOSINOPHILS ABSOLUTE COUNT (BEAKER) (test 0.29 K/ L 0.04-0.36 cuol=495) BASOPHILS ABSOLUTE COUNT (BEAKER) (test 0.03 K/ L 0.01-0.08 watv=775) IMMATURE GRANULOCYTES-RELATIVE PERCENT (BEAKER) 0 % 0-1 (test qbhm=5976) CORTISOL,[id number] 19:10:00 Test Item Value Reference Range Comments CORTISOL, BASELINE (BEAKER) (test xojj=3196) < ug/dL ACTH STIMULATION TEST INTERPRETATION GUIDELINES(Synonyms: [...] Draw serum cortisollevel 60 minutes after cosyntropin administration.[id number] 14:23:00 Test Item Value Reference Range Comments MAGNESIUM (BEAKER) (test ukjp=327) 1.8 mg/dL 1.6-2.6 BASIC METABOLIC [id number] 14:23:00 Test Item Value Reference Range Comments SODIUM (BEAKER) (test 138 meq/L 136-145 amwr=524) POTASSIUM (BEAKER) (test 4.2 meq/L 3.5-5.1 qovg=718) CHLORIDE (BEAKER) (test 104 meq/L 98-107 gkjw=353) CO2 (BEAKER) (test 24 meq/L 22-29 zjbi=452) BLOOD UREA NITROGEN 10 mg/dL 7-21 (BEAKER) (test lqkc=955) CREATININE (BEAKER) (test 0.82 mg/dL 0.57-1.25 kwwm=625) GLUCOSE RANDOM (BEAKER) 83 mg/dL 70-105 (test pifv=537) CALCIUM (BEAKER) (test 9.5 mg/dL 8.4-10.2 ibio=010) EGFR (BEAKER) (test 75 mL/min/1.73 sq m ESTIMATED GFR IS NOT akxi=6173) ACCURATE CREATININE CLEARANCE IN PREDICTING GLOMERULAR FILTRATION RATE. ESTIMATED GFR IS NOT APPLICABLE FOR DIALYSIS PATIENTS. CBC W/PLT COUNT & AUTO [id number] 14:01:00 Test Item Value Reference Range Comments WHITE BLOOD CELL COUNT (BEAKER) (test gvri=307) 7.6 K/ L 3.5-10.5 RED BLOOD CELL COUNT (BEAKER) (test kzut=574) 4.59 M/ L 3.93-5.22 HEMOGLOBIN (BEAKER) (test qspw=716) 13.5 GM/DL 11.2-15.7 HEMATOCRIT (BEAKER) (test jaxq=779) 43.0 % 34.1-44.9 MEAN CORPUSCULAR VOLUME (BEAKER) (test omdi=277) 93.7 fL 79.4-94.8 MEAN CORPUSCULAR HEMOGLOBIN (BEAKER) (test 29.4 pg 25.6-32.2 wpki=473) MEAN CORPUSCULAR HEMOGLOBIN CONC (BEAKER) (test 31.4 GM/DL 32.2-35.5 ivqy=507) RED CELL DISTRIBUTION WIDTH (BEAKER) (test 14.5 % 11.7-14.4 jpui=674) PLATELET COUNT (BEAKER) (test ptqo=850) 262 K/CU MM 150-450 MEAN PLATELET VOLUME (BEAKER) (test pqmi=840) 8.5 fL 9.4-12.3 NUCLEATED RED BLOOD CELLS (BEAKER) (test 0 /100 WBC 0-0 hbmr=530) NEUTROPHILS RELATIVE PERCENT (BEAKER) (test 52 % yotx=926) LYMPHOCYTES RELATIVE PERCENT (BEAKER) (test 37 % axbc=604) MONOCYTES RELATIVE PERCENT (BEAKER) (test 6 % ibsz=238) EOSINOPHILS RELATIVE PERCENT (BEAKER) (test 4 % ryzx=967) BASOPHILS RELATIVE PERCENT (BEAKER) (test 0 % qbgu=174) NEUTROPHILS ABSOLUTE COUNT (BEAKER) (test 3.94 K/ L 1.56-6.13 xmdd=850) LYMPHOCYTES ABSOLUTE COUNT (BEAKER) (test 2.82 K/ L 1.18-3.74 arfn=864) MONOCYTES ABSOLUTE COUNT (BEAKER) (test 0.46 K/ L 0.24-0.36 tmpv=698) EOSINOPHILS ABSOLUTE COUNT (BEAKER) (test 0.30 K/ L 0.04-0.36 wfzo=314) BASOPHILS ABSOLUTE COUNT (BEAKER) (test 0.02 K/ L 0.01-0.08 vosj=905) IMMATURE GRANULOCYTES-RELATIVE PERCENT (BEAKER) 0 % 0-1 (test geae=4067) OVA AND PARASITE [id number] 12:03:00 Test Item Value Reference Range Comments DIRECT SMEAR - O\\T\\P No ova or parasites seen No ova or parasites seen (BEAKER) (test osko=056) CONCENTRATE SMEAR - O\\T\\P No ova or parasites seen No ova or parasites seen (BEAKER) (test aeeo=026) TRICHROME SMEAR - O\\T\\P No ova or parasites seen No ova or parasites seen (BEAKER) (test ryep=239) [id number] 05:30:00 Test Item Value Reference Range Comments MAGNESIUM (BEAKER) (test qjco=648) 1.9 mg/dL 1.6-2.6 BASIC METABOLIC [id number] 05:30:00 Test Item Value Reference Range Comments SODIUM (BEAKER) (test 143 meq/L 136-145 ipox=149) POTASSIUM (BEAKER) (test 4.2 meq/L 3.5-5.1 fyom=368) CHLORIDE (BEAKER) (test 109 meq/L 98-107 sblx=211) CO2 (BEAKER) (test 28 meq/L 22-29 xoie=020) BLOOD UREA NITROGEN 7 mg/dL 7-21 (BEAKER) (test rzhc=144) CREATININE (BEAKER) (test 0.70 mg/dL 0.57-1.25 ddss=413) GLUCOSE RANDOM (BEAKER) 80 mg/dL 70-105 (test ayta=373) CALCIUM (BEAKER) (test 9.2 mg/dL 8.4-10.2 lmdv=992) EGFR (BEAKER) (test 90 mL/min/1.73 sq m ESTIMATED GFR IS NOT nhir=9028) ACCURATE CREATININE CLEARANCE IN PREDICTING GLOMERULAR FILTRATION RATE. ESTIMATED GFR IS NOT APPLICABLE FOR DIALYSIS PATIENTS. CBC W/PLT COUNT & AUTO [id number] 04:58:00 Test Item Value Reference Range Comments WHITE BLOOD CELL COUNT (BEAKER) (test ogrg=156) 6.7 K/ L 3.5-10.5 RED BLOOD CELL COUNT (BEAKER) (test ozfg=880) 4.58 M/ L 3.93-5.22 HEMOGLOBIN (BEAKER) (test veqg=115) 13.5 GM/DL 11.2-15.7 HEMATOCRIT (BEAKER) (test rjyh=398) 43.8 % 34.1-44.9 MEAN CORPUSCULAR VOLUME (BEAKER) (test yxjg=130) 95.6 fL 79.4-94.8 MEAN CORPUSCULAR HEMOGLOBIN (BEAKER) (test 29.5 pg 25.6-32.2 qubt=321) MEAN CORPUSCULAR HEMOGLOBIN CONC (BEAKER) (test 30.8 GM/DL 32.2-35.5 udjj=015) RED CELL DISTRIBUTION WIDTH (BEAKER) (test 14.7 % 11.7-14.4 byjh=117) PLATELET COUNT (BEAKER) (test ffwt=081) 242 K/CU MM 150-450 MEAN PLATELET VOLUME (BEAKER) (test oudr=191) 8.4 fL 9.4-12.3 NUCLEATED RED BLOOD CELLS (BEAKER) (test 0 /100 WBC 0-0 jzmy=790) NEUTROPHILS RELATIVE PERCENT (BEAKER) (test 49 % ndji=872) LYMPHOCYTES RELATIVE PERCENT (BEAKER) (test 40 % itup=133) MONOCYTES RELATIVE PERCENT (BEAKER) (test 7 % woxt=755) EOSINOPHILS RELATIVE PERCENT (BEAKER) (test 4 % ekit=682) BASOPHILS RELATIVE PERCENT (BEAKER) (test 0 % gfwv=895) NEUTROPHILS ABSOLUTE COUNT (BEAKER) (test 3.25 K/ L 1.56-6.13 zgbf=731) LYMPHOCYTES ABSOLUTE COUNT (BEAKER) (test 2.68 K/ L 1.18-3.74 wskh=197) MONOCYTES ABSOLUTE COUNT (BEAKER) (test 0.44 K/ L 0.24-0.36 wsjn=319) EOSINOPHILS ABSOLUTE COUNT (BEAKER) (test 0.28 K/ L 0.04-0.36 xkrm=224) BASOPHILS ABSOLUTE COUNT (BEAKER) (test 0.03 K/ L 0.01-0.08 yndm=593) IMMATURE GRANULOCYTES-RELATIVE PERCENT (BEAKER) 0 % 0-1 (test ezri=4236) TISSUE [id number] 15:51:00Surgical Pathology Report Case: [id number] Authorizing Provider: Bartolo Quinn Collected: 11/10/2018 1543 Ordering Location: [address] Received: 11/12/2018 0813 Service Pathologist: Linda [...] CRYPT DISTORTION Signing Pathologist Direct Phone Line: [phone] signed by Linda Mullen MD on 11/12/2018 at 3:51 PMPatient's history of Crohn's disease is noted. The current sampling shows no significant active or chronic colitis. This may represent complete histologic resolution following treatment. Clinical and endoscopic correlation is recommended.[id number] and postop diagnosis: diarrhea A. Neoterminal ileum [...] E1. CG/ pl Performed.STOOL CULTURE + SHIGA [id number] 08:26:00 Test Item Value Reference Range Comments CULTURE (BEAKER) (test No Salmonella, Shigella or wndt=4440) Campylobacter isolated GI PATHOGEN PROFILE BY [id number] 08:20:00 Test Item Value Reference Range Comments CAMPYLOBACTER (PCR) (test vcty=2708621) Not detected Not detected PLESIOMONAS SHIGELLOIDES (PCR) (test Not detected Not detected czfz=1675023) SALMONELLA (PCR) (test yihs=3513842) Not detected Not detected YERSINIA ENTEROCOLITICA (PCR) (test Not detected Not detected qjpy=7955146) VIBRIO CHOLERAE (PCR) (test hwgw=6133500) Not detected Not detected ENTEROAGGREGATIVE E. COLI (EAEC) BY PCR (test Not detected Not detected stpm=0221993) ENTEROPATHOGENIC E. COLI (EPEC) BY PCR (test Not detected Not detected erdf=9422007) ENTEROTOXIGENIC E. COLI (ETEC) LT/ST BY PCR Not detected Not detected (test ipdb=4426335) SHIGA-LIKE TOXIN-PRODUCING E. COLI (STEC) Not detected Not detected STX1/STX2 (test cbmg=0035773) E. COLI O157 (PCR) (test yfxj=4323098) Not detected SHIGELLA/ENTEROINVASIVE E. COLI (EIEC) BY PCR Not detected Not detected (test ladj=0827031) CRYPTOSPORIDIUM (PCR) (test nuqh=3994479) Not detected Not detected CYCLOSPORA CAYETANENSIS (PCR) (test Not detected Not detected ylmm=8113264) ENTAMOEBA HISTOLYTICA (PCR) (test hiyy=4047733) Not detected Not detected GIARDIA LAMBLIA (PCR) (test kvrf=1045555) Not detected Not detected ADENOVIRUS F 40/41 (PCR) (test rfku=1420593) Not detected Not detected ASTROVIRUS (PCR) (test ejbc=6713570) Not detected Not detected NOROVIRUS GI/GII (PCR) (test ccaj=4481402) Not detected Not detected ROTAVIRUS A (PCR) (test tswe=2170024) Not detected Not detected SAPOVIRUS (I, II, IV, V) BY PCR (test Not detected Not detected jolv=5160523) VIBRIO (PARAHAEMOLYTICUS, VULNIFICUS) (test Not detected Not detected flqd=0341859) Other viruses, parasites and bacteria not targeted by this PCR panel cannot be excluded; therefore clinical correlation and follow up of serology, culture results, and other molecular studies is required. The results are not intended to be used as the sole means for clinical diagnosis or patient management decisions. This sample was tested at the [facility] using the [employer] Gastrointestinal Panel. It is FDA cleared and has been verified and approved by the [facility] for clinical use. This laboratory is CLIA-certified and College ofAmerican Pathologists (CAP)-accredited to perform high complexity testing.[id number] 06:24:00 Test Item Value Reference Range Comments CORTISOL, TOTAL (BEAKER) (test umyq=2068) < ug/dL 3.7-19.4 BASIC METABOLIC [id number] 05:50:00 Test Item Value Reference Range Comments SODIUM (BEAKER) (test 142 meq/L 136-145 fkzw=817) POTASSIUM (BEAKER) (test 4.3 meq/L 3.5-5.1 Specimen slightly fpor=316) hemolyzed CHLORIDE (BEAKER) (test 114 meq/L 98-107 cfbm=381) CO2 (BEAKER) (test 21 meq/L 22-29 thyz=236) BLOOD UREA NITROGEN 3 mg/dL 7-21 (BEAKER) (test ltlw=791) CREATININE (BEAKER) (test 0.66 mg/dL 0.57-1.25 Specimen slightly lbrd=718) hemolyzed GLUCOSE RANDOM (BEAKER) 84 mg/dL 70-105 (test wvrf=712) CALCIUM (BEAKER) (test 8.6 mg/dL 8.4-10.2 dyfm=559) EGFR (BEAKER) (test 96 mL/min/1.73 sq m ESTIMATED GFR IS NOT eupi=9569) ACCURATE CREATININE CLEARANCE IN PREDICTING GLOMERULAR FILTRATION RATE. ESTIMATED GFR IS NOT APPLICABLE FOR DIALYSIS PATIENTS. SHIGA TOXIN [id number] 14:16:00 Test Item Value Reference Range Comments SHIGA TOXIN 1 (BEAKER) (test ixbc=3504) Not detected Not detected SHIGA TOXIN 2 (BEAKER) (test joxs=2756) Not detected Not detected STOOL PATH [id number] 10:08:00 Test Item Value Reference Range Comments PATHOGEN EXAM CHARGED (BEAKER) (test ejnc=7360) Done TSH/FREE T4 IF [id number] 05:59:00 Test Item Value Reference Range Comments THYROID STIMULATING HORMONE (BEAKER) (test 2.84 uIU/mL 0.35-4.94 ctib=605) BASIC METABOLIC [id number] 05:38:00 Test Item Value Reference Range Comments SODIUM (BEAKER) (test 135 meq/L 136-145 tcon=768) POTASSIUM (BEAKER) (test 4.0 meq/L 3.5-5.1 plaa=410) CHLORIDE (BEAKER) (test 106 meq/L 98-107 xynf=392) CO2 (BEAKER) (test 22 meq/L 22-29 hlie=714) BLOOD UREA NITROGEN 5 mg/dL 7-21 (BEAKER) (test egym=552) CREATININE (BEAKER) (test 0.68 mg/dL 0.57-1.25 vghg=007) GLUCOSE RANDOM (BEAKER) 84 mg/dL 70-105 (test pmwy=044) CALCIUM (BEAKER) (test 8.2 mg/dL 8.4-10.2 ngtb=104) EGFR (BEAKER) (test 93 mL/min/1.73 sq m ESTIMATED GFR IS NOT dydi=5766) ACCURATE CREATININE CLEARANCE IN PREDICTING GLOMERULAR FILTRATION RATE. ESTIMATED GFR IS NOT APPLICABLE FOR DIALYSIS PATIENTS. RAD, ABDOMEN/KUB, 1 VIEW [id number] 14:37:00Reason for exam:->post- obstructive diarrheaShould this be [...] Verified Date/Time : 11/07/2018 14:37:57 [place] Location: [address] Consult [place] Room CT, [id number] 14:25:00FINAL REPORT TECHNIQUE: CT of the abdomen [...] MDReport Verified Date/Time: 2018 14:25:25 [place] Location: [facility] C013Y CT Body [place] Room CBC W/ PLT COUNT & AUTO [id number] 13:14:00 Test Item Value Reference Range Comments WHITE BLOOD CELL COUNT (BEAKER) (test siys=168) 7.1 K/ L 3.5-10.5 RED BLOOD CELL COUNT (BEAKER) (test maci=378) 4.42 M/ L 3.93-5.22 HEMOGLOBIN (BEAKER) (test smjg=861) 13.0 GM/DL 11.2-15.7 HEMATOCRIT (BEAKER) (test kbrg=477) 41.6 % 34.1-44.9 MEAN CORPUSCULAR VOLUME (BEAKER) (test iary=443) 94.1 fL 79.4-94.8 MEAN CORPUSCULAR HEMOGLOBIN (BEAKER) (test 29.4 pg 25.6-32.2 evhv=880) MEAN CORPUSCULAR HEMOGLOBIN CONC (BEAKER) (test 31.3 GM/DL 32.2-35.5 unsh=734) RED CELL DISTRIBUTION WIDTH (BEAKER) (test 15.2 % 11.7-14.4 mjpt=247) PLATELET COUNT (BEAKER) (test dttj=877) 280 K/CU MM 150-450 MEAN PLATELET VOLUME (BEAKER) (test ojxh=049) 8.3 fL 9.4-12.3 NUCLEATED RED BLOOD CELLS (BEAKER) (test 0 /100 WBC 0-0 ldls=417) (CELLAVISION MANUAL DIFF)2018-11-07 13:14:00 Test Item Value Reference Range Comments NEUTROPHILS - REL (CELLAVISION)(BEAKER) (test 83 % whfw=9839) LYMPHOCYTES - REL (CELLAVISION)(BEAKER) (test 13 % dwqq=4319) MONOCYTES - REL (CELLAVISION)(BEAKER) (test 4 % byca=0077) NEUTROPHILS - ABS (CELLAVISION)(BEAKER) (test 5.89 K/ul 1.56-6.13 aida=3107) LYMPHOCYTES - ABS (CELLAVISION)(BEAKER) (test 0.92 K/ul 1.18-3.74 oqzp=0548) MONOCYTES - ABS (CELLAVISION)(BEAKER) (test 0.28 K/uL 0.24-0.36 dgpn=2448) TOTAL COUNTED (BEAKER) (test pcoh=0870) 100 RBC MORPHOLOGY (BEAKER) (test bpfu=890) Normal WBC MORPHOLOGY (BEAKER) (test ddoi=409) Normal PLT MORPHOLOGY (BEAKER) (test phuw=877) Normal ARTIFACT (CELLAVISION)(BEAKER) (test sgbs=2906) Present PLATELET CONCENTRATION (CELLAVISION)(BEAKER) (test Adequate dhqc=1946) Received comment: User comments: Slide comments:C. DIFFICILE GDH [id number] 12:53:00 Test Item Value Reference Range Comments CDT TOXIN (test Negative Negative czyw=[id number]) CDT GDH ANTIGEN (test Negative Negative No indication of Clostridium geep=[id number]) difficile infection and no colonization. Discontinue enteric isolation and therapy. Testing performed by [employer] Rapid Cassette Assay. For GDH, published sensitivity of the assay is 98.7% compared to cytotoxicity testing. For Toxin AB, published sensitivity is 87.8% and specificity 99.4% compared to cytotoxicity testing.Verification of kit performance was done by the [facility] prior to clinical use.C-REACTIVE [id number] 06:53:00 Test Item Value Reference Range Comments C-REACTIVE PROTEIN (BEAKER) (test zqxx=635) 0.37 mg/dL 0.00-0.50 BASIC METABOLIC [id number] 06:41:00 Test Item Value Reference Range Comments SODIUM (BEAKER) (test 135 meq/L 136-145 mqbc=699) POTASSIUM (BEAKER) (test 4.3 meq/L 3.5-5.1 xhxf=444) CHLORIDE (BEAKER) (test 104 meq/L 98-107 uwpp=464) CO2 (BEAKER) (test 21 meq/L 22-29 avsp=814) BLOOD UREA NITROGEN 14 mg/dL 7-21 (BEAKER) (test calj=141) CREATININE (BEAKER) (test 0.83 mg/dL 0.57-1.25 otiq=228) GLUCOSE RANDOM (BEAKER) 160 mg/dL 70-105 (test xeae=869) CALCIUM (BEAKER) (test 9.0 mg/dL 8.4-10.2 rewr=159) EGFR (BEAKER) (test 74 mL/min/1.73 sq m ESTIMATED GFR IS NOT hker=9968) ACCURATE CREATININE CLEARANCE IN PREDICTING GLOMERULAR FILTRATION RATE. ESTIMATED GFR IS NOT APPLICABLE FOR DIALYSIS PATIENTS. CT, [id number] 09:48:00FINAL REPORT CT Abdomen And Pelvis with [...] recommended to confirm stability. Signed: Melony Henriquez [facility] Verified Date/Time: 09/20/2018 09:48:51 [facility] [id number] 13:22 :00Reason for Exam:->crohn's disease of both [...] for bone mineral density as provided by pugger helper is 0.023 g/cm2 for lumbar spine and [...] MDReport Verified Date/Time: 2018 13:22:29 01: 22 [id number] 07:02:00 Test Item Value Reference Range Comments PHOSPHORUS (BEAKER) (test gwqg=641) 2.9 mg/dL 2.3-4.7 [id number] 07:02:00 Test Item Value Reference Range Comments MAGNESIUM (BEAKER) (test razp=194) 1.9 mg/dL 1.6-2.6 BASIC METABOLIC [id number] 07:02:00 Test Item Value Reference Range Comments SODIUM (BEAKER) (test 139 meq/L 136-145 azub=783) POTASSIUM (BEAKER) (test 4.0 meq/L 3.5-5.1 zzhi=252) CHLORIDE (BEAKER) (test 108 meq/L 98-107 dhqo=661) CO2 (BEAKER) (test 26 meq/L 22-29 pzfz=316) BLOOD UREA NITROGEN 6 mg/dL 7-21 (BEAKER) (test mklb=353) CREATININE (BEAKER) (test 0.68 mg/dL 0.57-1.25 cluo=974) GLUCOSE RANDOM (BEAKER) 87 mg/dL 70-105 (test lesb=680) CALCIUM (BEAKER) (test 8.5 mg/dL 8.4-10.2 oaip=564) EGFR (BEAKER) (test 93 mL/min/1.73 sq m ESTIMATED GFR IS NOT mzly=6239) ACCURATE CREATININE CLEARANCE IN PREDICTING GLOMERULAR FILTRATION RATE. ESTIMATED GFR IS NOT APPLICABLE FOR DIALYSIS PATIENTS. CBC (HEMOGRAM ONLY)2018-08-23 06:39:00 Test Item Value Reference Range Comments WHITE BLOOD CELL COUNT (BEAKER) (test retm=884) 5.5 K/ L 3.5-10.5 RED BLOOD CELL COUNT (BEAKER) (test kpmc=531) 3.31 M/ L 3.93-5.22 HEMOGLOBIN (BEAKER) (test gjqv=890) 10.4 GM/DL 11.2-15.7 HEMATOCRIT (BEAKER) (test hpyp=944) 34.9 % 34.1-44.9 MEAN CORPUSCULAR VOLUME (BEAKER) (test gopl=103) 105.4 fL 79.4-94.8 MEAN CORPUSCULAR HEMOGLOBIN (BEAKER) (test 31.4 pg 25.6-32.2 xjtl=257) MEAN CORPUSCULAR HEMOGLOBIN CONC (BEAKER) (test 29.8 GM/DL 32.2-35.5 eimh=702) RED CELL DISTRIBUTION WIDTH (BEAKER) (test 15.4 % 11.7-14.4 ldns=997) PLATELET COUNT (BEAKER) (test dhtd=470) 185 K/CU MM 150-450 MEAN PLATELET VOLUME (BEAKER) (test mdwi=446) 8.9 fL 9.4-12.3 NUCLEATED RED BLOOD CELLS (BEAKER) (test 0 /100 WBC 0-0 zqhe=489) TISSUE [id number] 13:47:00Surgical Pathology Report Case: [id number] Authorizing Provider: Jani Alejandro MD Collected: 08/20/2018 1003 Ordering Location: [facility] Received: 08/20/2018 1118 SERVICES Pathologist: Linda Mullen MD Specimen: Large Intestine, Colon - Right/Ascending , RIGHT COLON AND SMALL BOWEL A. COLON, RIGHT/ASCENDING, RIGHT HEMICOLECTOMY: - CHRONIC ACTIVE ENTERITIS COMPATIBLE WITH CROHN'S DISEASE (SEE COMMENT) - NEGATIVE FOR GRANULOMAS (OR) VIRAL CYTOPATHIC CHANGES - NEGATIVE FOR DYSPLASIA (OR) MALIGNANCY - MARGINS, UNREMARKABLE Signing Pathologist Direct Phone Line: [phone] signed by Linda Mullen MD on 08/22/2018 [...] cytopathic changes are seen.IDC: Dr. 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 [employer] Worker sections are submitted in 10 cassettes as follows.Ink code: Blue-one marginBlack-margin closest to anastomotic siteSection code: A1 - direct customer service representative sections of both margins, differentially inked per the ink code A2-A5 - entire sections of ulcerative areaA6 - entire sections of hemorrhagic mucosal areaA7-A10 - direct customer service representative sections of mucosaFR/ewPerformed.[id number] 06:10:00 Test Item Value Reference Range Comments PHOSPHORUS (BEAKER) (test bmtx=353) 2.3 mg/dL 2.3-4.7 [id number] 06:10:00 Test Item Value Reference Range Comments MAGNESIUM (BEAKER) (test hmeu=509) 1.7 mg/dL 1.6-2.6 BASIC METABOLIC [id number] 06:10:00 Test Item Value Reference Range Comments SODIUM (BEAKER) (test 137 meq/L 136-145 iyqx=098) POTASSIUM (BEAKER) (test 3.8 meq/L 3.5-5.1 upnu=311) CHLORIDE (BEAKER) (test 105 meq/L 98-107 itqs=551) CO2 (BEAKER) (test 25 meq/L 22-29 vetu=578) BLOOD UREA NITROGEN 5 mg/dL 7-21 (BEAKER) (test hzvt=758) CREATININE (BEAKER) (test 0.73 mg/dL 0.57-1.25 fjcz=895) GLUCOSE RANDOM (BEAKER) 105 mg/dL 70-105 (test argo=076) CALCIUM (BEAKER) (test 8.6 mg/dL 8.4-10.2 kedh=701) EGFR (BEAKER) (test 86 mL/min/1.73 sq m ESTIMATED GFR IS NOT vehl=4395) ACCURATE CREATININE CLEARANCE IN PREDICTING GLOMERULAR FILTRATION RATE. ESTIMATED GFR IS NOT APPLICABLE FOR DIALYSIS PATIENTS. CBC (HEMOGRAM ONLY)2018-08-22 05:31:00 Test Item Value Reference Range Comments WHITE BLOOD CELL COUNT (BEAKER) (test ouca=650) 7.8 K/ L 3.5-10.5 RED BLOOD CELL COUNT (BEAKER) (test swcp=625) 3.65 M/ L 3.93-5.22 HEMOGLOBIN (BEAKER) (test ocgl=135) 11.5 GM/DL 11.2-15.7 HEMATOCRIT (BEAKER) (test jvjv=560) 37.1 % 34.1-44.9 MEAN CORPUSCULAR VOLUME (BEAKER) (test rpkb=575) 101.6 fL 79.4-94.8 MEAN CORPUSCULAR HEMOGLOBIN (BEAKER) (test 31.5 pg 25.6-32.2 bsoe=300) MEAN CORPUSCULAR HEMOGLOBIN CONC (BEAKER) (test 31.0 GM/DL 32.2-35.5 dawi=302) RED CELL DISTRIBUTION WIDTH (BEAKER) (test 15.2 % 11.7-14.4 qkxj=508) PLATELET COUNT (BEAKER) (test zdgv=925) 215 K/CU MM 150-450 MEAN PLATELET VOLUME (BEAKER) (test rivk=326) 8.8 fL 9.4-12.3 NUCLEATED RED BLOOD CELLS (BEAKER) (test 0 /100 WBC 0-0 cgxb=682) [id number] 03:34:00 Test Item Value Reference Range Comments PHOSPHORUS (BEAKER) (test ipvc=150) 2.5 mg/dL 2.3-4.7 [id number] 03:34:00 Test Item Value Reference Range Comments MAGNESIUM (BEAKER) (test bwbs=233) 1.9 mg/dL 1.6-2.6 BASIC METABOLIC [id number] 03:34:00 Test Item Value Reference Range Comments SODIUM (BEAKER) (test 138 meq/L 136-145 esnr=571) POTASSIUM (BEAKER) (test 3.9 meq/L 3.5-5.1 drhz=975) CHLORIDE (BEAKER) (test 108 meq/L 98-107 usht=036) CO2 (BEAKER) (test 25 meq/L 22-29 ewxx=762) BLOOD UREA NITROGEN 5 mg/dL 7-21 (BEAKER) (test fikw=104) CREATININE (BEAKER) (test 0.67 mg/dL 0.57-1.25 eiok=110) GLUCOSE RANDOM (BEAKER) 122 mg/dL 70-105 (test uaud=036) CALCIUM (BEAKER) (test 8.4 mg/dL 8.4-10.2 odld=858) EGFR (BEAKER) (test 95 mL/min/1.73 sq m ESTIMATED GFR IS NOT jceg=8894) ACCURATE CREATININE CLEARANCE IN PREDICTING GLOMERULAR FILTRATION RATE. ESTIMATED GFR IS NOT APPLICABLE FOR DIALYSIS PATIENTS. CBC (HEMOGRAM ONLY)2018-08-21 03:17:00 Test Item Value Reference Range Comments WHITE BLOOD CELL COUNT (BEAKER) (test kkdk=973) 7.8 K/ L 3.5-10.5 RED BLOOD CELL COUNT (BEAKER) (test ekgy=399) 3.65 M/ L 3.93-5.22 HEMOGLOBIN (BEAKER) (test wcua=365) 11.4 GM/DL 11.2-15.7 HEMATOCRIT (BEAKER) (test dqng=860) 36.3 % 34.1-44.9 MEAN CORPUSCULAR VOLUME (BEAKER) (test kfwl=572) 99.5 fL 79.4-94.8 MEAN CORPUSCULAR HEMOGLOBIN (BEAKER) (test 31.2 pg 25.6-32.2 dwuv=137) MEAN CORPUSCULAR HEMOGLOBIN CONC (BEAKER) (test 31.4 GM/DL 32.2-35.5 urdc=717) RED CELL DISTRIBUTION WIDTH (BEAKER) (test 14.9 % 11.7-14.4 ipbq=277) PLATELET COUNT (BEAKER) (test zitv=294) 204 K/CU MM 150-450 MEAN PLATELET VOLUME (BEAKER) (test jbze=009) 8.5 fL 9.4-12.3 NUCLEATED RED BLOOD CELLS (BEAKER) (test 0 /100 WBC 0-0 zxie=297) POCT-GLUCOSE [id number] 11:42:00 Test Item Value Reference Range Comments POC-GLUCOSE METER (BEAKER) 129 mg/dL 70-110 TESTED AT [address] (test pery=7448) [facility] [address] POCT-GLUCOSE [id number] 06:28:00 Test Item Value Reference Range Comments POC-GLUCOSE METER (BEAKER) 102 mg/dL 70-110 TESTED AT [address] (test odeh=8874) [facility] [address] CT, [id number] 15:41:00FINAL REPORT CT abdomen and pelvis with [...] MDReport Verified Date/Time: 08/17/2018 15:41:17 Reading Location: [facility] Diagnostic Imaging Reading Room - [place] [address] STOOL CULTURE + SHIGA [id number] 15:37:00 Test Item Value Reference Range Comments CULTURE (BEAKER) (test No Salmonella, Shigella or otmi=4224) Campylobacter isolated POCT-GLUCOSE [id number] 08:25:00 Test Item Value Reference Range Comments POC-GLUCOSE METER (BEAKER) 197 mg/dL 70-110 TESTED AT [address] (test hyou=7744) [facility] [address] [id number] 05:59:00 Test Item Value Reference Range Comments PHOSPHORUS (BEAKER) (test aptf=490) 3.6 mg/dL 2.3-4.7 [id number] 05:59:00 Test Item Value Reference Range Comments MAGNESIUM (BEAKER) (test xgeo=269) 2.3 mg/dL 1.6-2.6 BASIC METABOLIC [id number] 05:59:00 Test Item Value Reference Range Comments SODIUM (BEAKER) (test 137 meq/L 136-145 qqwk=548) POTASSIUM (BEAKER) (test 4.7 meq/L 3.5-5.1 sbfr=005) CHLORIDE (BEAKER) (test 104 meq/L 98-107 kwve=173) CO2 (BEAKER) (test 24 meq/L 22-29 ovlk=191) BLOOD UREA NITROGEN 4 mg/dL 7-21 (BEAKER) (test pcxh=049) CREATININE (BEAKER) (test 0.74 mg/dL 0.57-1.25 pufu=213) GLUCOSE RANDOM (BEAKER) 144 mg/dL 70-105 (test mbtw=109) CALCIUM (BEAKER) (test 9.0 mg/dL 8.4-10.2 yvjg=167) EGFR (BEAKER) (test 84 mL/min/1.73 sq m ESTIMATED GFR IS NOT ftgc=8475) ACCURATE CREATININE CLEARANCE IN PREDICTING GLOMERULAR FILTRATION RATE. ESTIMATED GFR IS NOT APPLICABLE FOR DIALYSIS PATIENTS. HEPATIC FUNCTION [id number] 05:59:00 Test Item Value Reference Range Comments TOTAL PROTEIN (BEAKER) (test vogf=605) 6.3 gm/dL 6.0-8.3 ALBUMIN (BEAKER) (test anej=8820) 3.9 g/dL 3.5-5.0 BILIRUBIN TOTAL (BEAKER) (test owzd=956) 0.3 mg/dL 0.2-1.2 BILIRUBIN DIRECT (BEAKER) (test skvt=890) 0.1 mg/dL 0.1-0.5 ALKALINE PHOSPHATASE (BEAKER) (test prmr=305) 68 U/L 40-150 AST (SGOT) (BEAKER) (test cgku=278) 23 U/L 5-34 ALT (SGPT) (BEAKER) (test rzpf=920) 41 U/L 6-55 POCT-GLUCOSE [id number] 21:05:00 Test Item Value Reference Range Comments POC-GLUCOSE METER (BEAKER) 148 mg/dL 70-110 TESTED [facility] [place] [address] [facility] (test kjxi=7394) [facility] [address] C. DIFFICILE GDH [id number] 15:59:00 Test Item Value Reference Range Comments CDT TOXIN (test Negative Negative ytxz=[id number]) CDT GDH ANTIGEN (test Negative Negative No indication of Clostridium qmfu=[id number]) difficile infection and no colonization. Discontinue enteric isolation and therapy. Testing performed by [email or web address] Rapid Cassette Assay. For GDH, published sensitivity of the assay is 98.7% compared to cytotoxicity testing. For Toxin AB, published sensitivity is 87.8% and specificity 99.4% compared to cytotoxicity testing.Verification of kit performance was done by the [facility] prior to clinical use.SHIGA TOXIN [id number] 14:22:00 Test Item Value Reference Range Comments SHIGA TOXIN 1 (BEAKER) (test vnrc=5518) Not detected Not detected SHIGA TOXIN 2 (BEAKER) (test ybrf=5350) Not detected Not detected POCT-GLUCOSE [id number] 13:13:00 Test Item Value Reference Range Comments POC-GLUCOSE METER (BEAKER) 119 mg/dL 70-110 TESTED AT [address] (test wsxw=7561) [place] [id number] STOOL PATH [id number] 10:03:00 Test Item Value Reference Range Comments PATHOGEN EXAM CHARGED (BEAKER) (test lkuj=5820) Done POCT-GLUCOSE [id number] 09:13:00 Test Item Value Reference Range Comments POC-GLUCOSE METER (BEAKER) 111 mg/dL 70-110 TESTED AT [address] (test deer=2649) [place] [address] [id number] 06:09:00 Test Item Value Reference Range Comments PREALBUMIN (BEAKER) (test aheb=617) 36 mg/dL 14-45 CBC W/PLT COUNT & AUTO [id number] 06:02:00 Test Item Value Reference Range Comments WHITE BLOOD CELL COUNT (BEAKER) (test waxw=086) 8.2 K/ L 3.5-10.5 RED BLOOD CELL COUNT (BEAKER) (test jjkm=097) 4.02 M/ L 3.93-5.22 HEMOGLOBIN (BEAKER) (test uvgd=113) 12.5 GM/DL 11.2-15.7 HEMATOCRIT (BEAKER) (test idvw=231) 39.7 % 34.1-44.9 MEAN CORPUSCULAR VOLUME (BEAKER) (test qsuf=299) 98.8 fL 79.4-94.8 MEAN CORPUSCULAR HEMOGLOBIN (BEAKER) (test 31.1 pg 25.6-32.2 lekn=915) MEAN CORPUSCULAR HEMOGLOBIN CONC (BEAKER) (test 31.5 GM/DL 32.2-35.5 ypwy=918) RED CELL DISTRIBUTION WIDTH (BEAKER) (test 14.8 % 11.7-14.4 llvb=459) PLATELET COUNT (BEAKER) (test elrb=913) 322 K/CU MM 150-450 MEAN PLATELET VOLUME (BEAKER) (test gzqe=106) 8.6 fL 9.4-12.3 NUCLEATED RED BLOOD CELLS (BEAKER) (test 0 /100 WBC 0-0 jfha=801) NEUTROPHILS RELATIVE PERCENT (BEAKER) (test 83 % axoe=120) LYMPHOCYTES RELATIVE PERCENT (BEAKER) (test 14 % pwpt=698) MONOCYTES RELATIVE PERCENT (BEAKER) (test 2 % kgoc=954) EOSINOPHILS RELATIVE PERCENT (BEAKER) (test 0 % vnei=358) BASOPHILS RELATIVE PERCENT (BEAKER) (test 0 % mnzi=000) NEUTROPHILS ABSOLUTE COUNT (BEAKER) (test 6.83 K/ L 1.56-6.13 iwmo=543) LYMPHOCYTES ABSOLUTE COUNT (BEAKER) (test 1.16 K/ L 1.18-3.74 htqy=551) MONOCYTES ABSOLUTE COUNT (BEAKER) (test 0.16 K/ L 0.24-0.36 tkpm=331) EOSINOPHILS ABSOLUTE COUNT (BEAKER) (test 0.00 K/ L 0.04-0.36 asdd=760) BASOPHILS ABSOLUTE COUNT (BEAKER) (test 0.01 K/ L 0.01-0.08 tcds=078) IMMATURE GRANULOCYTES-RELATIVE PERCENT (BEAKER) 1 % 0-1 (test jwac=6177) [id number] 05:52:00 Test Item Value Reference Range Comments PHOSPHORUS (BEAKER) (test cbgn=326) 4.0 mg/dL 2.3-4.7 [id number] 05:52:00 Test Item Value Reference Range Comments MAGNESIUM (BEAKER) (test mizo=773) 2.3 mg/dL 1.6-2.6 BASIC METABOLIC [id number] 05:52:00 Test Item Value Reference Range Comments SODIUM (BEAKER) (test 139 meq/L 136-145 gkch=352) POTASSIUM (BEAKER) (test 4.4 meq/L 3.5-5.1 dnyo=560) CHLORIDE (BEAKER) (test 104 meq/L 98-107 sbzy=805) CO2 (BEAKER) (test 25 meq/L 22-29 aobn=710) BLOOD UREA NITROGEN 5 mg/dL 7-21 (BEAKER) (test alol=679) CREATININE (BEAKER) (test 0.78 mg/dL 0.57-1.25 solv=873) GLUCOSE RANDOM (BEAKER) 172 mg/dL 70-105 (test iyqr=596) CALCIUM (BEAKER) (test 9.0 mg/dL 8.4-10.2 hfmd=700) EGFR (BEAKER) (test 80 mL/min/1.73 sq m ESTIMATED GFR IS NOT bvmh=6641) ACCURATE CREATININE CLEARANCE IN PREDICTING GLOMERULAR FILTRATION RATE. ESTIMATED GFR IS NOT APPLICABLE FOR DIALYSIS PATIENTS. HEPATIC FUNCTION [id number] 05:52:00 Test Item Value Reference Range Comments TOTAL PROTEIN (BEAKER) (test abyo=830) 6.4 gm/dL 6.0-8.3 ALBUMIN (BEAKER) (test slgt=9362) 3.9 g/dL 3.5-5.0 BILIRUBIN TOTAL (BEAKER) (test waok=155) 0.2 mg/dL 0.2-1.2 BILIRUBIN DIRECT (BEAKER) (test ssxs=671) 0.1 mg/dL 0.1-0.5 ALKALINE PHOSPHATASE (BEAKER) (test rjvb=761) 68 U/L 40-150 AST (SGOT) (BEAKER) (test irjl=957) 12 U/L 5-34 ALT (SGPT) (BEAKER) (test akar=242) 29 U/L 6-55 C-REACTIVE [id number] 05:52:00 Test Item Value Reference Range Comments C-REACTIVE PROTEIN (BEAKER) (test hsfd=231) 0.22 mg/dL 0.00-0.50 POCT-GLUCOSE [id number] 23:39:00 Test Item Value Reference Range Comments POC-GLUCOSE METER (BEAKER) 122 mg/dL 70-110 TESTED AT [address] (test zuqj=7539) [facility] [address] CT, [id number] 04:05:00FINAL REPORT CLINICAL HISTORY: Acute abdominal pain, [...] described findings of colitis. Signed: Cj Sow MDRbamort Verified Date/Time: 07/21/2018 04:05:05 Reading Location: [address] Reading Room [id number] 22:00:00 Test Item Value Reference Range Comments LIPASE (BEAKER) (test gwwg=514) 12 U/L 8-78 COMPREHENSIVE METABOLIC [id number] 22:00:00 Test Item Value Reference Range Comments TOTAL PROTEIN (BEAKER) 5.6 gm/dL 6.0-8.3 (test deyk=723) ALBUMIN (BEAKER) (test 3.5 g/dL 3.5-5.0 zram=7986) ALKALINE PHOSPHATASE 54 U/L 40-150 (BEAKER) (test wmne=419) BILIRUBIN TOTAL (BEAKER) 0.2 mg/dL 0.2-1.2 (test hujq=450) SODIUM (BEAKER) (test 143 meq/L 136-145 usva=451) POTASSIUM (BEAKER) (test 3.9 meq/L 3.5-5.1 ixbb=556) CHLORIDE (BEAKER) (test 106 meq/L 98-107 nbof=591) CO2 (BEAKER) (test 27 meq/L 22-29 uqag=815) BLOOD UREA NITROGEN 12 mg/dL 7-21 (BEAKER) (test nvum=030) CREATININE (BEAKER) (test 0.76 mg/dL 0.57-1.25 xmgw=815) GLUCOSE RANDOM (BEAKER) 84 mg/dL 70-105 (test gkod=082) CALCIUM (BEAKER) (test 8.5 mg/dL 8.4-10.2 zuqt=291) AST (SGOT) (BEAKER) (test 13 U/L 5-34 sahz=585) ALT (SGPT) (BEAKER) (test 27 U/L 6-55 gfed=392) EGFR (BEAKER) (test 82 mL/min/1.73 sq m ESTIMATED GFR IS NOT zhnf=1604) ACCURATE CREATININE CLEARANCE IN PREDICTING GLOMERULAR FILTRATION RATE. ESTIMATED GFR IS NOT APPLICABLE FOR DIALYSIS PATIENTS. [id number] 21:55:00 Test Item Value Reference Range Comments PARTIAL THROMBOPLASTIN TIME (BEAKER) (test 24.6 seconds 22.5-36.0 nntq=596) PROTHROMBIN TIME/[id number] 21:53:00 Test Item Value Reference Range Comments PROTIME (BEAKER) (test kvgt=120) 13.2 seconds 11.7-14.7 INR (BEAKER) (test cefl=778) 1.0 <=5.9 RECOMMENDED COUMADIN/WARFARIN INR THERAPY RANGESSTANDARD DOSE: 2.0 - 3.0 Includes: PROPHYLAXIS forvenous thrombosis, systemic embolization; TREATMENT for venous thrombosis and/or pulmonary embolus.HIGH RISK: Target INR is 2.5-3.5 for patients with mechanical heart valves.CBC W/PLT COUNT & AUTO [id number] 21:44:00 Test Item Value Reference Range Comments WHITE BLOOD CELL COUNT (BEAKER) (test poik=116) 10.8 K/ L 3.5-10.5 RED BLOOD CELL COUNT (BEAKER) (test axyk=201) 3.58 M/ L 3.93-5.22 HEMOGLOBIN (BEAKER) (test xzyq=912) 11.1 GM/DL 11.2-15.7 HEMATOCRIT (BEAKER) (test hkdr=405) 35.1 % 34.1-44.9 MEAN CORPUSCULAR VOLUME (BEAKER) (test uobm=934) 98.0 fL 79.4-94.8 MEAN CORPUSCULAR HEMOGLOBIN (BEAKER) (test 31.0 pg 25.6-32.2 akcq=872) MEAN CORPUSCULAR HEMOGLOBIN CONC (BEAKER) (test 31.6 GM/DL 32.2-35.5 hndp=541) RED CELL DISTRIBUTION WIDTH (BEAKER) (test 15.1 % 11.7-14.4 wevr=881) PLATELET COUNT (BEAKER) (test ymcx=595) 245 K/CU MM 150-450 MEAN PLATELET VOLUME (BEAKER) (test vztz=341) 8.6 fL 9.4-12.3 NUCLEATED RED BLOOD CELLS (BEAKER) (test 0 /100 WBC 0-0 wubj=250) NEUTROPHILS RELATIVE PERCENT (BEAKER) (test 73 % qhtm=114) LYMPHOCYTES RELATIVE PERCENT (BEAKER) (test 20 % bkfy=082) MONOCYTES RELATIVE PERCENT (BEAKER) (test 6 % daag=043) EOSINOPHILS RELATIVE PERCENT (BEAKER) (test 0 % bmls=090) BASOPHILS RELATIVE PERCENT (BEAKER) (test 0 % lemg=041) NEUTROPHILS ABSOLUTE COUNT (BEAKER) (test 7.89 K/ L 1.56-6.13 cgxm=059) LYMPHOCYTES ABSOLUTE COUNT (BEAKER) (test 2.13 K/ L 1.18-3.74 eoye=204) MONOCYTES ABSOLUTE COUNT (BEAKER) (test 0.65 K/ L 0.24-0.36 rcwz=570) EOSINOPHILS ABSOLUTE COUNT (BEAKER) (test 0.01 K/ L 0.04-0.36 sryd=126) BASOPHILS ABSOLUTE COUNT (BEAKER) (test 0.01 K/ L 0.01-0.08 oisu=907) IMMATURE GRANULOCYTES-RELATIVE PERCENT (BEAKER) 1 % 0-1 (test qann=9996) TISSUE [id number] 09:23:00Surgical Pathology Report Case: [id number] Authorizing Provider: King Huynh MD Collected: 07/11/2018 0924 Ordering Location: [address] Received: 07/11/2018 1421 Service Pathologist: Linda [...] AND COMMENT) Signing Pathologist Direct Phone Line: [phone] signed by Linda Mullen MD on 07/12/2018 at 9:23 AMPatient's history of Crohn's disease is noted per Epic note dated 07/10/18. The current sampling shows no significant active or chronic colitis. This may represent complete histologic resolution following treatment. Clinical and endoscopic correlation is recommended.[id number] abdominal pain A. Random colon biopsy. B. [...] noted. No dysplasia or carcinoma is present.BLOOD [id number] 20:01:00 Test Item Value Reference Range Comments CULTURE (BEAKER) (test vtmc=1115) No growth in 5 days BLOOD [id number] 20:01:00 Test Item Value Reference Range Comments CULTURE (BEAKER) (test lyia=5909) No growth in 5 days BASIC METABOLIC [id number] 04:55:00 Test Item Value Reference Range Comments SODIUM (BEAKER) (test 145 meq/L 136-145 uuei=218) POTASSIUM (BEAKER) (test 4.0 meq/L 3.5-5.1 phql=445) CHLORIDE (BEAKER) (test 111 meq/L 98-107 qewf=132) CO2 (BEAKER) (test 27 meq/L 22-29 psqj=881) BLOOD UREA NITROGEN 2 mg/dL 7-21 (BEAKER) (test geus=776) CREATININE (BEAKER) (test 0.68 mg/dL 0.57-1.25 yyki=798) GLUCOSE RANDOM (BEAKER) 100 mg/dL 70-105 (test iwzu=219) CALCIUM (BEAKER) (test 9.0 mg/dL 8.4-10.2 navj=289) EGFR (BEAKER) (test 93 mL/min/1.73 sq m ESTIMATED GFR IS NOT yoxv=8356) ACCURATE CREATININE CLEARANCE IN PREDICTING GLOMERULAR FILTRATION RATE. ESTIMATED GFR IS NOT APPLICABLE FOR DIALYSIS PATIENTS. CBC W/PLT COUNT & AUTO [id number] 04:37:00 Test Item Value Reference Range Comments WHITE BLOOD CELL COUNT (BEAKER) (test qjhi=650) 6.3 K/ L 3.5-10.5 RED BLOOD CELL COUNT (BEAKER) (test dtqk=873) 3.92 M/ L 3.93-5.22 HEMOGLOBIN (BEAKER) (test hnqi=601) 12.0 GM/DL 11.2-15.7 HEMATOCRIT (BEAKER) (test cyzt=177) 38.3 % 34.1-44.9 MEAN CORPUSCULAR VOLUME (BEAKER) (test qywb=402) 97.7 fL 79.4-94.8 MEAN CORPUSCULAR HEMOGLOBIN (BEAKER) (test 30.6 pg 25.6-32.2 iodf=907) MEAN CORPUSCULAR HEMOGLOBIN CONC (BEAKER) (test 31.3 GM/DL 32.2-35.5 nczq=154) RED CELL DISTRIBUTION WIDTH (BEAKER) (test 13.5 % 11.7-14.4 xdut=501) PLATELET COUNT (BEAKER) (test utps=184) 220 K/CU MM 150-450 MEAN PLATELET VOLUME (BEAKER) (test zddd=162) 9.6 fL 9.4-12.3 NUCLEATED RED BLOOD CELLS (BEAKER) (test 0 /100 WBC 0-0 wdzw=840) NEUTROPHILS RELATIVE PERCENT (BEAKER) (test 76 % hulp=474) LYMPHOCYTES RELATIVE PERCENT (BEAKER) (test 20 % jfew=370) MONOCYTES RELATIVE PERCENT (BEAKER) (test 3 % lrax=124) EOSINOPHILS RELATIVE PERCENT (BEAKER) (test 0 % elww=683) BASOPHILS RELATIVE PERCENT (BEAKER) (test 0 % move=433) NEUTROPHILS ABSOLUTE COUNT (BEAKER) (test 4.80 K/ L 1.56-6.13 rtoc=810) LYMPHOCYTES ABSOLUTE COUNT (BEAKER) (test 1.26 K/ L 1.18-3.74 sowd=111) MONOCYTES ABSOLUTE COUNT (BEAKER) (test 0.20 K/ L 0.24-0.36 tevw=558) EOSINOPHILS ABSOLUTE COUNT (BEAKER) (test 0.00 K/ L 0.04-0.36 ppfo=716) BASOPHILS ABSOLUTE COUNT (BEAKER) (test 0.01 K/ L 0.01-0.08 fbxr=211) IMMATURE GRANULOCYTES-RELATIVE PERCENT (BEAKER) 1 % 0-1 (test eact=1806) BASIC METABOLIC [id number] 06:15:00 Test Item Value Reference Range Comments SODIUM (BEAKER) (test 144 meq/L 136-145 kldp=328) POTASSIUM (BEAKER) (test 4.3 meq/L 3.5-5.1 Specimen slightly vlfa=942) hemolyzed CHLORIDE (BEAKER) (test 113 meq/L 98-107 aqel=825) CO2 (BEAKER) (test 24 meq/L 22-29 urkn=888) BLOOD UREA NITROGEN 3 mg/dL 7-21 (BEAKER) (test pudl=996) CREATININE (BEAKER) (test 0.72 mg/dL 0.57-1.25 Specimen slightly oofu=134) hemolyzed GLUCOSE RANDOM (BEAKER) 138 mg/dL 70-105 (test fxec=985) CALCIUM (BEAKER) (test 9.3 mg/dL 8.4-10.2 phro=285) EGFR (BEAKER) (test 87 mL/min/1.73 sq m ESTIMATED GFR IS NOT ssee=5352) ACCURATE CREATININE CLEARANCE IN PREDICTING GLOMERULAR FILTRATION RATE. ESTIMATED GFR IS NOT APPLICABLE FOR DIALYSIS PATIENTS. CBC W/PLT COUNT & AUTO [id number] 06:06:00 Test Item Value Reference Range Comments WHITE BLOOD CELL COUNT (BEAKER) (test qvuj=049) 7.5 K/ L 3.5-10.5 RED BLOOD CELL COUNT (BEAKER) (test inmv=658) 4.07 M/ L 3.93-5.22 HEMOGLOBIN (BEAKER) (test avey=906) 12.9 GM/DL 11.2-15.7 HEMATOCRIT (BEAKER) (test gawp=014) 40.3 % 34.1-44.9 MEAN CORPUSCULAR VOLUME (BEAKER) (test lttj=008) 99.0 fL 79.4-94.8 MEAN CORPUSCULAR HEMOGLOBIN (BEAKER) (test 31.7 pg 25.6-32.2 kuvm=915) MEAN CORPUSCULAR HEMOGLOBIN CONC (BEAKER) (test 32.0 GM/DL 32.2-35.5 jzbw=238) RED CELL DISTRIBUTION WIDTH (BEAKER) (test 13.3 % 11.7-14.4 cogk=994) PLATELET COUNT (BEAKER) (test ezqu=586) 191 K/CU MM 150-450 MEAN PLATELET VOLUME (BEAKER) (test uxye=323) 9.9 fL 9.4-12.3 NUCLEATED RED BLOOD CELLS (BEAKER) (test 0 /100 WBC 0-0 bvpp=463) NEUTROPHILS RELATIVE PERCENT (BEAKER) (test 70 % sxby=669) LYMPHOCYTES RELATIVE PERCENT (BEAKER) (test 24 % oifm=127) MONOCYTES RELATIVE PERCENT (BEAKER) (test 5 % bric=840) EOSINOPHILS RELATIVE PERCENT (BEAKER) (test 0 % zhye=047) BASOPHILS RELATIVE PERCENT (BEAKER) (test 0 % esqh=261) NEUTROPHILS ABSOLUTE COUNT (BEAKER) (test 5.25 K/ L 1.56-6.13 ujra=242) LYMPHOCYTES ABSOLUTE COUNT (BEAKER) (test 1.83 K/ L 1.18-3.74 kfoy=870) MONOCYTES ABSOLUTE COUNT (BEAKER) (test 0.37 K/ L 0.24-0.36 ibjf=140) EOSINOPHILS ABSOLUTE COUNT (BEAKER) (test 0.02 K/ L 0.04-0.36 eqjx=958) BASOPHILS ABSOLUTE COUNT (BEAKER) (test 0.01 K/ L 0.01-0.08 nmuj=548) IMMATURE GRANULOCYTES-RELATIVE PERCENT (BEAKER) 0 % 0-1 (test wtas=3812) STOOL CULTURE + SHIGA [id number] 12:15:00 Test Item Value Reference Range Comments CULTURE (BEAKER) (test No Salmonella, Shigella or rbla=2184) Campylobacter isolated BASIC METABOLIC [id number] 07:08:00 Test Item Value Reference Range Comments SODIUM (BEAKER) (test 143 meq/L 136-145 muap=836) POTASSIUM (BEAKER) (test 4.2 meq/L 3.5-5.1 uasy=878) CHLORIDE (BEAKER) (test 111 meq/L 98-107 euvd=647) CO2 (BEAKER) (test 25 meq/L 22-29 wbxo=713) BLOOD UREA NITROGEN 3 mg/dL 7-21 (BEAKER) (test ylvo=990) CREATININE (BEAKER) (test 0.67 mg/dL 0.57-1.25 ndti=556) GLUCOSE RANDOM (BEAKER) 106 mg/dL 70-105 (test parr=560) CALCIUM (BEAKER) (test 9.2 mg/dL 8.4-10.2 gcdj=668) EGFR (BEAKER) (test 95 mL/min/1.73 sq m ESTIMATED GFR IS NOT yjhw=3847) ACCURATE CREATININE CLEARANCE IN PREDICTING GLOMERULAR FILTRATION RATE. ESTIMATED GFR IS NOT APPLICABLE FOR DIALYSIS PATIENTS. CBC W/PLT COUNT & AUTO [id number] 06:42:00 Test Item Value Reference Range Comments WHITE BLOOD CELL COUNT (BEAKER) (test lutv=205) 6.2 K/ L 3.5-10.5 RED BLOOD CELL COUNT (BEAKER) (test cjmh=948) 4.29 M/ L 3.93-5.22 HEMOGLOBIN (BEAKER) (test paja=385) 13.4 GM/DL 11.2-15.7 HEMATOCRIT (BEAKER) (test ztmw=403) 41.1 % 34.1-44.9 MEAN CORPUSCULAR VOLUME (BEAKER) (test ddcv=622) 95.8 fL 79.4-94.8 MEAN CORPUSCULAR HEMOGLOBIN (BEAKER) (test 31.2 pg 25.6-32.2 rmne=721) MEAN CORPUSCULAR HEMOGLOBIN CONC (BEAKER) (test 32.6 GM/DL 32.2-35.5 vdkg=695) RED CELL DISTRIBUTION WIDTH (BEAKER) (test 13.1 % 11.7-14.4 tttq=561) PLATELET COUNT (BEAKER) (test pgpq=071) 232 K/CU MM 150-450 MEAN PLATELET VOLUME (BEAKER) (test bfvf=712) 9.0 fL 9.4-12.3 NUCLEATED RED BLOOD CELLS (BEAKER) (test 0 /100 WBC 0-0 nnvl=101) NEUTROPHILS RELATIVE PERCENT (BEAKER) (test 67 % llik=047) LYMPHOCYTES RELATIVE PERCENT (BEAKER) (test 27 % xafp=766) MONOCYTES RELATIVE PERCENT (BEAKER) (test 5 % sdpw=104) EOSINOPHILS RELATIVE PERCENT (BEAKER) (test 0 % jxqf=914) BASOPHILS RELATIVE PERCENT (BEAKER) (test 0 % acso=631) NEUTROPHILS ABSOLUTE COUNT (BEAKER) (test 4.18 K/ L 1.56-6.13 ybux=022) LYMPHOCYTES ABSOLUTE COUNT (BEAKER) (test 1.69 K/ L 1.18-3.74 opic=415) MONOCYTES ABSOLUTE COUNT (BEAKER) (test 0.29 K/ L 0.24-0.36 klqf=523) EOSINOPHILS ABSOLUTE COUNT (BEAKER) (test 0.01 K/ L 0.04-0.36 stpt=018) BASOPHILS ABSOLUTE COUNT (BEAKER) (test 0.02 K/ L 0.01-0.08 vedd=356) IMMATURE GRANULOCYTES-RELATIVE PERCENT (BEAKER) 1 % 0-1 (test hxqe=8073) CT, ABDOMEN - PELVIS, [id number] 14:17:00Reason for exam:-> Evaluation of small bowel [...] lesion demonstrated. Endplate degenerative change at L1-2 cvpT28-N2 noted. There is an implanted pump in the right lower quadrant subcutaneous fat with a lead going to the thecal sac terminating at the T11 level. IMPRESSION: Evidence of acute colitis of the sigmoid colon. No small bowel enteritis demonstrated. No stricture, fistula, or intramesenteric abscess demonstrated. Signed: Vicente Montero MDReport Verified Date/Time: 07/08/2018 14:17:31 Reading Location: [facility] B1 [id number] Ortho Consult Reading Room [facility] METABOLIC [id number] 06:53:00 Test Item Value Reference Range Comments SODIUM (BEAKER) (test 137 meq/L 136-145 yiiz=258) POTASSIUM (BEAKER) (test 4.2 meq/L 3.5-5.1 aohv=652) CHLORIDE (BEAKER) (test 105 meq/L 98-107 czkr=690) CO2 (BEAKER) (test 23 meq/L 22-29 ihjh=283) BLOOD UREA NITROGEN 3 mg/dL 7-21 (BEAKER) (test czmw=654) CREATININE (BEAKER) (test 0.75 mg/dL 0.57-1.25 samd=898) GLUCOSE RANDOM (BEAKER) 85 mg/dL 70-105 (test yxqe=369) CALCIUM (BEAKER) (test 8.6 mg/dL 8.4-10.2 vfhb=195) EGFR (BEAKER) (test 83 mL/min/1.73 sq m ESTIMATED GFR IS NOT smji=5290) ACCURATE CREATININE CLEARANCE IN PREDICTING GLOMERULAR FILTRATION RATE. ESTIMATED GFR IS NOT APPLICABLE FOR DIALYSIS PATIENTS. CBC W/PLT COUNT & AUTO [id number] 06:25:00 Test Item Value Reference Range Comments WHITE BLOOD CELL COUNT (BEAKER) (test hbca=861) 5.3 K/ L 3.5-10.5 RED BLOOD CELL COUNT (BEAKER) (test xawu=552) 4.11 M/ L 3.93-5.22 HEMOGLOBIN (BEAKER) (test evrn=142) 12.8 GM/DL 11.2-15.7 HEMATOCRIT (BEAKER) (test melw=919) 40.4 % 34.1-44.9 MEAN CORPUSCULAR VOLUME (BEAKER) (test mawc=599) 98.3 fL 79.4-94.8 MEAN CORPUSCULAR HEMOGLOBIN (BEAKER) (test 31.1 pg 25.6-32.2 qsqo=179) MEAN CORPUSCULAR HEMOGLOBIN CONC (BEAKER) (test 31.7 GM/DL 32.2-35.5 xtaf=413) RED CELL DISTRIBUTION WIDTH (BEAKER) (test 13.7 % 11.7-14.4 uvab=096) PLATELET COUNT (BEAKER) (test zsiv=629) 213 K/CU MM 150-450 MEAN PLATELET VOLUME (BEAKER) (test ikrq=492) 8.9 fL 9.4-12.3 NUCLEATED RED BLOOD CELLS (BEAKER) (test 0 /100 WBC 0-0 jdin=924) NEUTROPHILS RELATIVE PERCENT (BEAKER) (test 47 % pgmb=280) LYMPHOCYTES RELATIVE PERCENT (BEAKER) (test 39 % pbxt=050) MONOCYTES RELATIVE PERCENT (BEAKER) (test 9 % vcwd=377) EOSINOPHILS RELATIVE PERCENT (BEAKER) (test 5 % mrpr=877) BASOPHILS RELATIVE PERCENT (BEAKER) (test 0 % hrkm=831) NEUTROPHILS ABSOLUTE COUNT (BEAKER) (test 2.48 K/ L 1.56-6.13 vzca=507) LYMPHOCYTES ABSOLUTE COUNT (BEAKER) (test 2.04 K/ L 1.18-3.74 mmdm=396) MONOCYTES ABSOLUTE COUNT (BEAKER) (test 0.45 K/ L 0.24-0.36 cijy=715) EOSINOPHILS ABSOLUTE COUNT (BEAKER) (test 0.26 K/ L 0.04-0.36 btsm=491) BASOPHILS ABSOLUTE COUNT (BEAKER) (test 0.02 K/ L 0.01-0.08 syns=610) IMMATURE GRANULOCYTES-RELATIVE PERCENT (BEAKER) 0 % 0-1 (test efmt=9480) SHIGA TOXIN [id number] 13:53:00 Test Item Value Reference Range Comments SHIGA TOXIN 1 (BEAKER) (test vczp=0133) Not detected Not detected SHIGA TOXIN 2 (BEAKER) (test bibh=3498) Not detected Not detected C. DIFFICILE GDH [id number] 13:28:00 Test Item Value Reference Range Comments CDT TOXIN (test Negative Negative bxtx=[id number]) CDT GDH ANTIGEN (test Negative Negative No indication of Clostridium ujlk=[id number]) difficile infection and no colonization. Discontinue enteric isolation and therapy. Testing performed by [email or web address] Rapid Cassette Assay. For GDH, published sensitivity of the assay is 98.7% compared to cytotoxicity testing. For Toxin AB, published sensitivity is 87.8% and specificity 99.4% compared to cytotoxicity testing.Verification of kit performance was done by the [facility] Microbiology Lab prior to clinical use.STOOL PATH [id number] 10:17:00 Test Item Value Reference Range Comments PATHOGEN EXAM CHARGED (BEAKER) (test nbso=4971) Done BASIC METABOLIC [id number] 05:17:00 Test Item Value Reference Range Comments SODIUM (BEAKER) (test 142 meq/L 136-145 qcws=391) POTASSIUM (BEAKER) (test 4.3 meq/L 3.5-5.1 cqou=820) CHLORIDE (BEAKER) (test 110 meq/L 98-107 ipmd=567) CO2 (BEAKER) (test 25 meq/L 22-29 qkvx=312) BLOOD UREA NITROGEN 5 mg/dL 7-21 (BEAKER) (test iqhk=981) CREATININE (BEAKER) (test 0.78 mg/dL 0.57-1.25 dduq=543) GLUCOSE RANDOM (BEAKER) 108 mg/dL 70-105 (test lgmr=377) CALCIUM (BEAKER) (test 8.9 mg/dL 8.4-10.2 zrjf=671) EGFR (BEAKER) (test 80 mL/min/1.73 sq m ESTIMATED GFR IS NOT tdym=1109) ACCURATE CREATININE CLEARANCE IN PREDICTING GLOMERULAR FILTRATION RATE. ESTIMATED GFR IS NOT APPLICABLE FOR DIALYSIS PATIENTS. CBC W/PLT COUNT & AUTO [id number] 04:58:00 Test Item Value Reference Range Comments WHITE BLOOD CELL COUNT (BEAKER) (test mnqh=269) 4.8 K/ L 3.5-10.5 RED BLOOD CELL COUNT (BEAKER) (test ueut=732) 3.79 M/ L 3.93-5.22 HEMOGLOBIN (BEAKER) (test yxph=005) 11.8 GM/DL 11.2-15.7 HEMATOCRIT (BEAKER) (test lzuf=984) 37.6 % 34.1-44.9 MEAN CORPUSCULAR VOLUME (BEAKER) (test eozv=394) 99.2 fL 79.4-94.8 MEAN CORPUSCULAR HEMOGLOBIN (BEAKER) (test 31.1 pg 25.6-32.2 xcuc=697) MEAN CORPUSCULAR HEMOGLOBIN CONC (BEAKER) (test 31.4 GM/DL 32.2-35.5 ftva=756) RED CELL DISTRIBUTION WIDTH (BEAKER) (test 14.5 % 11.7-14.4 gtwb=978) PLATELET COUNT (BEAKER) (test owzl=900) 216 K/CU MM 150-450 MEAN PLATELET VOLUME (BEAKER) (test iekj=434) 9.3 fL 9.4-12.3 NUCLEATED RED BLOOD CELLS (BEAKER) (test 0 /100 WBC 0-0 mxuo=966) NEUTROPHILS RELATIVE PERCENT (BEAKER) (test 44 % wrbp=048) LYMPHOCYTES RELATIVE PERCENT (BEAKER) (test 44 % uwmw=043) MONOCYTES RELATIVE PERCENT (BEAKER) (test 6 % sdjf=326) EOSINOPHILS RELATIVE PERCENT (BEAKER) (test 5 % kbdj=299) BASOPHILS RELATIVE PERCENT (BEAKER) (test 0 % fxoh=418) NEUTROPHILS ABSOLUTE COUNT (BEAKER) (test 2.14 K/ L 1.56-6.13 gvef=494) LYMPHOCYTES ABSOLUTE COUNT (BEAKER) (test 2.12 K/ L 1.18-3.74 ubsj=642) MONOCYTES ABSOLUTE COUNT (BEAKER) (test 0.31 K/ L 0.24-0.36 umxy=770) EOSINOPHILS ABSOLUTE COUNT (BEAKER) (test 0.24 K/ L 0.04-0.36 eolz=826) BASOPHILS ABSOLUTE COUNT (BEAKER) (test 0.01 K/ L 0.01-0.08 lcem=217) IMMATURE GRANULOCYTES-RELATIVE PERCENT (BEAKER) 0 % 0-1 (test mlju=0409) RAD, CHEST, 1 VIEW, NON [id number] 14:21:00Reason for exam:->FeverShould this be performed at the bedside?->YesFINAL REPORT TECHNIQUE: Frontal chest radiograph dated 07/06/2018. CLINICAL HISTORY: Fever COMPARISON STUDY: None IMPRESSION:Lungs are clear. No pleural effusion or pneumothorax. Cardiomediastinal silhouette is normal in size. No pulmonary edema. No fracture. Signed: Xiao Mckinney Verified Date/Time: 11/2018 14:21:04 Reading Location: [facility] Radiology Reading Room RAPID DRUG SCREEN , [id number] 12:52:00 Test Item Value Reference Range Comments BARBITURATE URINE (BEAKER) (test mfvf=298) Negative Negative BENZODIAZEPINE SCREEN URINE (BEAKER) (test Positive Negative dium=065) COCAINE (METAB.) SCREEN (BEAKER) (test mdwp=4728) Negative Negative METHADONE SCREEN (BEAKER) (test ffwq=1106) Negative Negative OPIATE SCREEN URINE (BEAKER) (test epiq=559) Positive Negative CANNABINOID SCREEN URINE (BEAKER) (test cgqc=435) Negative Negative AMPH/METHAMPH SCREEN (BEAKER) (test bfqd=8071) Negative Negative PHENCYCLIDINE SCREEN URINE (BEAKER) (test njbk=035) Negative Negative OXYCODONE SCREEN URINE (BEAKER) (test zaqt=0547) Negative Negative DRUG CUTOFF CONC.Cocaine 300 ng/mL Cannabinoid 50 ng/mL Benzodiazepine 200 ng/mLBarbiturate 200 ng/ mLPhencyclidine 25 ng/mLOpiate 300 ng/mLMethadone 300 ng/mLAmphetamine/ 1000 ng/mL MethamphetamineOxycodone 300 ng/mLThis assay provides an unconfirmed qualitative test result for the clinical management of patients in emergency situations. Chain of custody not maintained. Some haea-ljy-tstcdpn medications, as well as adulterants, may cause inaccurate results. Clinical correlation should be applied. A more comprehensive drug screen or confirmation of a detected drug may be performed upon request.CBC W/PLT COUNT & AUTO [id number] 12:40:00 Test Item Value Reference Range Comments WHITE BLOOD CELL COUNT (BEAKER) (test czwv=691) 8.7 K/ L 3.5-10.5 RED BLOOD CELL COUNT (BEAKER) (test guyu=613) 4.01 M/ L 3.93-5.22 HEMOGLOBIN (BEAKER) (test kytt=530) 12.6 GM/DL 11.2-15.7 HEMATOCRIT (BEAKER) (test bpry=235) 39.3 % 34.1-44.9 MEAN CORPUSCULAR VOLUME (BEAKER) (test ouye=884) 98.0 fL 79.4-94.8 MEAN CORPUSCULAR HEMOGLOBIN (BEAKER) (test 31.4 pg 25.6-32.2 lbui=447) MEAN CORPUSCULAR HEMOGLOBIN CONC (BEAKER) (test 32.1 GM/DL 32.2-35.5 stza=492) RED CELL DISTRIBUTION WIDTH (BEAKER) (test 14.3 % 11.7-14.4 hsnr=481) PLATELET COUNT (BEAKER) (test jsde=366) 212 K/CU MM 150-450 MEAN PLATELET VOLUME (BEAKER) (test smfi=721) 10.0 fL 9.4-12.3 NUCLEATED RED BLOOD CELLS (BEAKER) (test 0 /100 WBC 0-0 kquk=986) NEUTROPHILS RELATIVE PERCENT (BEAKER) (test 65 % bmgz=539) LYMPHOCYTES RELATIVE PERCENT (BEAKER) (test 25 % homg=403) MONOCYTES RELATIVE PERCENT (BEAKER) (test 7 % olxi=277) EOSINOPHILS RELATIVE PERCENT (BEAKER) (test 2 % raam=565) BASOPHILS RELATIVE PERCENT (BEAKER) (test 0 % rmhy=637) NEUTROPHILS ABSOLUTE COUNT (BEAKER) (test 5.70 K/ L 1.56-6.13 ozlt=605) LYMPHOCYTES ABSOLUTE COUNT (BEAKER) (test 2.18 K/ L 1.18-3.74 bpfj=916) MONOCYTES ABSOLUTE COUNT (BEAKER) (test 0.59 K/ L 0.24-0.36 hlsh=390) EOSINOPHILS ABSOLUTE COUNT (BEAKER) (test 0.17 K/ L 0.04-0.36 syoo=114) BASOPHILS ABSOLUTE COUNT (BEAKER) (test 0.02 K/ L 0.01-0.08 dhmz=234) IMMATURE GRANULOCYTES-RELATIVE PERCENT (BEAKER) 1 % 0-1 (test rnot=4609) [id number] 12:12:00 Test Item Value Reference Range Comments PHOSPHORUS (BEAKER) (test vwhz=913) 3.0 mg/dL 2.3-4.7 [id number] 12:12:00 Test Item Value Reference Range Comments MAGNESIUM (BEAKER) (test hyvp=418) 2.1 mg/dL 1.6-2.6 BASIC METABOLIC [id number] 12:12:00 Test Item Value Reference Range Comments SODIUM (BEAKER) (test 138 meq/L 136-145 rarg=980) POTASSIUM (BEAKER) (test 3.7 meq/L 3.5-5.1 kzpw=687) CHLORIDE (BEAKER) (test 104 meq/L 98-107 kiao=354) CO2 (BEAKER) (test 25 meq/L 22-29 dblo=994) BLOOD UREA NITROGEN 8 mg/dL 7-21 (BEAKER) (test tpbc=721) CREATININE (BEAKER) (test 0.72 mg/dL 0.57-1.25 evfz=064) GLUCOSE RANDOM (BEAKER) 93 mg/dL 70-105 (test yrak=548) CALCIUM (BEAKER) (test 9.1 mg/dL 8.4-10.2 ygbg=799) EGFR (BEAKER) (test 87 mL/min/1.73 sq m ESTIMATED GFR IS NOT oeqq=7284) ACCURATE CREATININE CLEARANCE IN PREDICTING GLOMERULAR FILTRATION RATE. ESTIMATED GFR IS NOT APPLICABLE FOR DIALYSIS PATIENTS. HEPATIC FUNCTION [id number] 12:12:00 Test Item Value Reference Range Comments TOTAL PROTEIN (BEAKER) (test oawg=772) 6.4 gm/dL 6.0-8.3 ALBUMIN (BEAKER) (test ygci=0286) 3.9 g/dL 3.5-5.0 BILIRUBIN TOTAL (BEAKER) (test enny=644) 0.5 mg/dL 0.2-1.2 BILIRUBIN DIRECT (BEAKER) (test nxqy=085) 0.2 mg/dL 0.1-0.5 ALKALINE PHOSPHATASE (BEAKER) (test mpki=347) 78 U/L 40-150 AST (SGOT) (BEAKER) (test aivu=247) 14 U/L 5-34 ALT (SGPT) (BEAKER) (test cvur=669) 12 U/L 6-55 LACTIC ACID, VENOUS, WHOLE [id number] 12:08:00 Test Item Value Reference Range Comments LACTATE BLOOD VENOUS (2) 0.8 mmol/L 0.5-2.2 Specimen moderately hemolyzed (BEAKER) (test xtcp=6744) URINALYSIS W/ REFLEX URINE [id number] 11:10:00 Test Item Value Reference Range Comments COLOR (BEAKER) (test nolo=498) Light Yellow CLARITY (BEAKER) (test rwpt=151) Clear SPECIFIC GRAVITY UA (BEAKER) (test xksv=513) 1.020 1.001-1.035 PH UA (BEAKER) (test gpev=776) 6.5 5.0-8.0 PROTEIN UA (BEAKER) (test hvqf=470) Negative Negative GLUCOSE UA (BEAKER) (test dgsf=366) Negative Negative KETONES UA (BEAKER) (test bsqj=732) Negative Negative BILIRUBIN UA (BEAKER) (test rjmj=246) Negative Negative BLOOD UA (BEAKER) (test yzny=883) Negative Negative NITRITE UA (BEAKER) (test heqm=402) Negative Negative LEUKOCYTE ESTERASE UA (BEAKER) (test truz=672) Negative Negative UROBILINOGEN UA (BEAKER) (test sscq=471) 0.2 mg/dL 0.2-1.0 RBC UA (BEAKER) (test opgo=671) < /HPF WBC UA (BEAKER) (test wtyz=029) 0 /HPF SQUAMOUS EPITHELIAL (BEAKER) (test hazd=312) < /HPF SOURCE(BEAKER) (test bqun=3049) CT ABDOMEN/PELVIS [id number] 14:26:[address] [id number] IMAGING REPORTPatient Name : Manuel DEL TORO of Service: [id number]: 45 Sex: F Order #: [id number] [facility] 1970 [facility] Number: [id number] Record Number: [id number] Hospital Number: [id number] Physician: KISHAN MUNOZ - Ordering Physician: HERNANDEZ [...] by TIFFANIE Syed 2016-07-26 14:23:48CT ABDOMEN/ PELVIS [id number] 02:49:[place] [id number] IMAGING REPORTPatient Name: Manuel DEL TORO of Service: [id number]: 45 Sex: F Order #: [id number] Room[facility]/ A [facility]NEDOB: 1970 X-Ray Number: [id number] Record Number: [id number] Hospital Number: [id number] Physician: BLAKE ALLEN - Ordering Physician: AURORA [...] authenticated by MARTINEZ VALDEZ 2016-07-17 02:47:19ABDOMEN 2 [id number] 12:14:[address] [id number] IMAGING REPORTPatient Name: Manuel DEL TORO of Service: [id number]: 45 Sex: F Order #: [id number] Room: [facility]SDOB: 1970 X-Ray Number: [id number] Record Number: [id number] Hospital Number: [id number] Physician: ANMOL TEJEDAOrdering Physician: Elvis GARCIA 2 [...]
--- OUTSIDE RECORDS SUMMARY | 2019-07-27 15:28 | XMS REPORT | Encounter Summary ---
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 Crohn's disease of small intestine crohn's disease: care instructions diet for inflammatory bowel disease: care instructions 3. Peripheral nerve disease gabapentin 300 mg capsule 4. Influenza vaccination influenza (flu) vaccine: care instructions Fluzone Quad [id number] (PF) 60 mcg (15 mcg x 4)/0.5 mL IM suspension Discussion Note: None recorded. Plan of Care Reminders Provider Appointments Repeat Pap 08/01/2019 Jake Franco, 1:30PM Lab None recorded. Referral None recorded. Procedures None recorded. Surgeries None recorded. Imaging None recorded. Medications Name Start Date alprazolam 1 mg tablet TAKE 1 TABLET BY MOUTH EVERY DAY buspirone 15 mg tablet cefuroxime axetil 500 mg tablet celecoxib 100 mg capsule chlorhexidine gluconate 0.12 % mouthwash cholestyramine (with sugar) 4 gram oral powder Claritin-D 24 Hour 10 mg-240 mg tablet,extended release Take 1 tablet every day by oral route. clobetasol 0.05 % topical ointment APPLY A THIN LAYER TO THE AFFECTED AREA(S) BY TOPICAL ROUTE once a day for one week, then 2-3 times a week thereafter clonazepam 1 mg tablet 1 TAB PO FOUR TIMES A DAILY NEEDED diazepam 10 mg tablet Take one tab p.o. one hour before appointment. dicyclomine 10 mg capsule escitalopram 20 mg tablet 1/2 TAB PO QD estradiol 1 mg tablet Take 1 tablet every day by oral route. gabapentin 300 mg capsule Take 1 capsule twice a day by oral route. take as needed for nerve pain hydrocortisone 20 mg tablet loperamide 2 mg capsule mesalamine 1.2 gram tablet,delayed release 2 TAB PO QD metoclopramide 10 mg tablet 1 TAB PO EVERY 6 HOURS; 30MIN BEFORE MEALS nystatin 100,000 unit/gram topical cream APPLY TO THE AFFECTED AREA(S) BY TOPICAL ROUTE 2 TIMES PER DAY pantoprazole 40 mg tablet,delayed release 1 TAB PO QD prednisone 5 mg tablet Proctozone-HC 2.5 % topical cream perineal applicator quetiapine 50 mg tablet Stelara 90 mg/mL subcutaneous syringe sucralfate 1 gram tablet terconazole 0.4 % vaginal cream Insert 1 applicatorful every day by vaginal route for 7 days. tramadol 50 mg tablet Take 1 tablet every 8 hours by oral route as needed. triamcinolone acetonide 0.5 % topical ointment APPLY A THIN LAYER TO THE AFFECTED AREA(S) BY TOPICAL ROUTE 2 TIMES PER DAY for one week, then 2-3 times a week thereafter valacyclovir 1 gram tablet Medications Administered None recorded. Vitals Height Weight BMI Blood Pressure 62 in 148 lbs 16 oz 27.3 kg/m2 123/81 mm[Hg] Results Lab Results None recorded. 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 Persistent Insomnia Active 12/07/2018 Urinary Tract Infectious Disease Active 12/17/2018 Acute Cystitis Active 12/28/2018 Candidiasis of Vagina Active 01/07/2019 Postsurgical Menopause Active 01/07/2019 HPV - Human 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 Active 01/10/2019 Atypical Squamous Cells of Undetermined Active 01/10/2019 Significance on Vaginal Papanicolaou Smear 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 Social History Tobacco Smoking Status Current Every Day Smoker Past Encounters 05/08/2019 Lizett's Disease; Crohn's Disease of Small Intestine; Peripheral Nerve Disease ; Influenza Vaccination Mychal Dai MD: [address] [facility] [address], [place] [address], Ph. History of Present Illness Note: CC crohns
hpi doing well w/ matthew drs
cc murray's & lt;br>hpi doing well with endocrine
cc neuropathy rt leg
hpi uses gabapentin
ros
gen doing much better
cv neg& lt;br>gi stable
endocrine stableReview of Systems: ROS as noted in the [...] no rales/crackles, no rhonchi Cardiovascular: Heart Auscultation: RRR
--- OUTSIDE RECORDS SUMMARY | 2019-07-27 15:29 | XMS REPORT | Summary of Care ---
:1970 Author Organization [facility] [place] [address] Care Team Providers Name Role Phone Mychal Dai MD Primary Care Provider Reason for Visit Reason Comments Initial Consultation Incisional Abdominal Hernia Consult, Test & Treat (Routine) Status Reason Specialty Diagnoses / Referred By Referred To Procedures Contact Contact Authorization Not Consult, General Diagnoses Incisional hernia, without obstruction or gangrene Ref Dr. Sanchez;possible incisional hernia Mulugeta Garza, Needed Test, and Surgery Procedures DE OFFICE OUTPATIENT NEW 30 MINUTES CHA Bowman, Treat [address] [place] [address] [address] [place] [address] [address] [place], [place] Phone: [phone] Phone: Encounter Details Date Type Department Care Team Description 07/11/2019 Office Visit [facility] Luís Dalal, Initial Consultation Medicine Acute Care (Incisional Abdominal Surgery [address] [place] [address] Hernia) [address] [place] [address] 6th Floor, [address] [phone] [place] [address] Allergies Active Allergy Reactions Severity Noted Date Comments Ciprofloxacin Hives, Swelling 10/25/2011 Promethazine Hcl Other (See Comments) 10/25/2011 Muscle twiching documented as of this encounter (statuses as of 07/11/2019) Medications Medication Sig Dispensed Refills Start Date End Date Status Sertraline HCl (ZOLOFT Take by mouth. 0 Active OR) clonazePAM (KLONOPIN Take 1 mg by mouth 0 Active OR) 3 times daily. Cl[address] Place 1 1 Tube 3 09/04/2018 Active (CLOTRIMAZOLE-7) 1 % application CREAIndications: vaginally daily. Crohn's disease of both small and large intestine with other complication (HCCode), History of immunosuppression therapy, Vaginal ye Ustekinumab (STELARA) Inject 90 mg into 90 mg 5 09/04/2018 Active 90 MG/ML injection the skin every 28 days. busPIRone (BUSPAR) 10 Take 10 mg by 0 Active MG tablet mouth 3 times daily. Cholestyramine 4 Take 4 g by mouth 90 Can 3 12/18/2018 Active GM/DOSE 3 times daily. POWDIndications: Crohn's disease of small intestine with intestinal obstruction (HCCode) dicyclomine (BENTYL) 10 Take 1 Cap by 120 Cap 6 12/18/2018 Active MG capsuleIndications: mouth 4 times Crohn's disease of daily (before small intestine with meals and intestinal obstruction nightly). 1 by (HCCode) mouth four times a day Ferrous Sulfate (IRON) Take 325 mg by 120 Each 3 12/18/2018 Active 325 (65 Fe) MG mouth two times TABSIndications: daily. Crohn's disease of small intestine with intestinal obstruction (HCCode) Cholecalciferol Take 2,000 Units 120 Cap 3 12/18/2018 Active (VITAMIN D) 2000 units by mouth daily. CAPSIndications: Crohn's disease of small intestine with intestinal obstruction (HCCode) Pantoprazole Sodium 40 Take 40 mg by 90 Each 3 06/25/2019 Active MG PACK mouth daily. pantoprazole (PROTONIX) Take 1 Tab by 60 Tab 5 07/01/2019 Active 40 MG mouth 2 times tabletIndications: daily (before Crohn's disease of both meals). 1 tablet small and large by mouth every day intestine with other complication (HCCode), Gastroesophageal reflux disease, esophagitis presence not specified escitalopram (LEXAPRO) escitalopram 10 mg 0 12/06/2018 Active 10 MG tablet tablet estradiol (ESTRACE) 1 estradiol 1 mg 0 Active MG tablet tablet raNITIdine HCl (ZANTAC 0 Active OR) cefUROXime (CEFTIN) 500 cefuroxime axetil 0 Active MG tablet 500 mg tablet alprazolam (XANAX) 1 MG alprazolam 1 mg tablet 0 Active tablet T1T PO QD acetaminophen-codeine Take 1 Tab by 0 12/21/2018 Active (TYLENOL #4) 300-60 MG mouth. per tablet escitalopram (LEXAPRO) Take 20 mg by 0 Active 20 MG tablet mouth daily. celecoxib (CELEBREX) Take 100 mg by 0 Active 100 MG capsule mouth daily. diazepam (VALIUM) 10 mg Take 10 mg by 0 Active tablet mouth daily. fluconazole (DIFLUCAN) Take 150 mg by 0 Active 150 MG tablet mouth daily. gabapentin (NEURONTIN) Take 300 mg by 0 08/23/2018 Active 300 MG capsule mouth daily. loperamide (IMMODIUM) 2 Take 2 mg by mouth 0 Active MG capsule daily. Mesalamine 1.2 g TBEC Take 1.2 mg by 0 Active mouth daily. metronidazole (FLAGYL) Take 500 mg by 0 Active 500 MG tablet mouth daily. metoclopramide (REGLAN) Take 10 mg by 0 Active 10 MG tablet mouth every 6 hours. montelukast (SINGULAIR) Take 10 mg by 0 Active 10 MG tablet mouth daily. predniSONE (DELTASONE) Take 5 mg by mouth 0 Active 5 MG tablet daily. hydrocortisone (CORTEF) Take 20 mg by 0 Active 20 MG tablet mouth daily. quetiapine (SEROQUEL) Take 50 mg by 0 Active 50 MG tablet mouth daily. sucralfate (CARAFATE) 1 Take 1 g by mouth 0 Active g tablet daily. tramadol (ULTRAM) 50 MG Take 50 mg by 0 Active tablet mouth daily. documented as of this encounter (statuses as of 07/11/2019) Active Problems Problem Noted Date Ventral incisional hernia 07/11/2019 Crohn's disease of both small and large intestine with other complication 09/2018 (HCCode) History of immunosuppression therapy 09/03/2018 Medication monitoring encounter 09/03/2018 Intestinal malabsorption 09/03/2018 Small bowel obstruction (HCCode) 09/03/2018 History of Clostridium difficile infection 09/03/2018 Chronic abdominal pain 09/03/2018 Macrocytic anemia 09/03/2018 Osteopenia 09/03/2018 Heavy smoker 09/03/2018 documented as of this encounter (statuses as of 07/11/2019) Social History Tobacco Use Types Packs/Day Years Used Date Current Every Day Smoker Cigarettes 1 20 Smokeless Tobacco: Never Used Tobacco Cessation: Ready to Quit: Yes; Counseling Given: Yes Comments: Also previouslly used the e-cigarette Alcohol Use Drinks/Week oz/Week Comments Not Asked Occassionally Sex Assigned at Date Recorded Not on file Job Start 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 documented as of this encounter Last Filed Vital Signs Vital Sign Reading Time Taken Comments Blood Pressure 111/77 07/11/2019 11:12 AM CDT Pulse 99 07/11/2019 11:12 AM CDT Temperature 36.7 C (98.1 F) 07/11/2019 11:12 AM CDT Respiratory Rate - - Oxygen Saturation - - Inhaled Oxygen Concentration - - Weight 65.8 kg (145 lb) 07/11/2019 11:12 AM CDT Height 157.5 cm (5' 2") 07/11/2019 11:12 AM CDT Body Mass Index 26.52 07/11/2019 11:12 AM CDT documented in this encounter Patient Instructions Patient InstructionsAngela Mazariegos CMA - 07/11/2019 11:56 AM CDTYour Body mass index is 26.52 kg/m. Body mass index (BMI) can help you see if your weight is raising your risk for health problems. It uses a formula to compare how much you weigh with how tall you are. A BMI between 18.5 and 24.9 is considered healthy. A BMI between 25 and 29.9 is considered overweight. A BMI of 30 or higher is considered obese. If your BMI is in the normal range, it means that you have a lower risk for weight-related health problems. If your BMI is in the overweight or obese range , you may be at increased risk for weight-related health problems, such as high blood pressure, heart disease, stroke, arthritis or joint pain, anddiabetes. BMI is just one measure of your risk for weight-related health problems. You may be at higher risk for health problems if you are not active, you eat an unhealthy diet, or you drink too much alcohol oruse tobacco products. Follow-up care is a lowe part of your treatment and safety. Be sure to make and go to all appointments, and call your doctor if you are having problems. It's also a good idea to know your test results and keep a list of the medicines you take. How can you care for yourself at home? Practice healthy eating habits. This includes eating plenty of fruits, vegetables, whole grains, lean protein, and low-fat dairy. Get at least 30 minutes of exercise 5 days a week or more. Brisk walking is a good choice. You also may want to do other activities, such as running, swimming, cycling, or playing tennis or team sports. Do not smoke. Smoking can increase your risk for health problems. If you need help quitting, talkto your doctor about stop-smoking programs and medicines. These can increase your chances of quitting for good. Limit alcohol Where can you learn more? Go to www.[employer].com Go to the Search tab with the magnifying glass on the right side of [employer] home page. Enter S176 in the search box to learn more about "Body Mass Index: Care Instructions." We discussed how to stop smoking. It's never too late to quit smoking. Quitting smoking now improves your health and reduces your riskof heart disease, cancer, lung disease, and other smoking- related illnesses. There are many resources available. A good place to start is https:// smokefree.gov/ Where can you learn more? Go to www.[employer].com Go to the Search tab with the magnifying glass on the right side of [employer] home page. Enter Y522 inthe search box to learn more about "Stopping Smoking: Care Instructions." documented in this encounter Progress Notes Luís Dalal MD - 07/11/2019 11:30 AM CDT Hernia Clinic History and Physical Provider: Dr. Luís Dalal MD Chief Complaint: ventral hernia History source: patient, outside medical records, internal electronic medical record HPI: Angela Rodriguez is a 48 y.o. female who presents to clinic with chron 's disease. She is apatient of Dr. Sanchez. He did a bowel resection about a year ago. She states that she noticed the hernia shortly after surgery. Patient states that this hernia keeps her from being able to do activity. She does currently have a pain pump, she has had it 7 or 8 years, filled with Dilaudid by a pain doctor in [place]. Currently using Stelara for Crohns. She reports that the hernia is very painful and keeps her from working out. She also admits back pain. With minimal exercise she reports that the hernia pain will debilitate her for the rest of the day. She does state that she has a brace that offers some support. Prior to bowel resection that Dr. Sanchez did she did have another bowel resection. She has also had ahysterectomy for endometriosis. Previous hernia repairs: after first bowel resection, repaired with mesh. Past Surgical History: Past Surgical History: Procedure Laterality Date HX ANKLE SURGERY Left HX SECTION HX HYSTERECTOMY HX SMALL INTESTINE SURGERY HX WRIST SURGERY Right Past Medical History: Past Medical History: Diagnosis Date Anxiety Arthritis Autoimmune disorder (HCCode) Crohn's disease (HCCode) Depression Heartburn History of shingles Migraine headache UTI (urinary tract infection) Allergies: Allergies Allergen Reactions Ciprofloxacin Hives and Swelling Phenergan [Promethazine Hcl] Other (See Comments) Muscle twiching These were reviewed SH: Patient is not currently working, she is on disability. She is currently smoking one pack per day. No alcohol. Family history: noncontributory, no bleeding/clotting disorders, no anesthetic issues Meds: Current Outpatient Medications: acetaminophen-codeine (TYLENOL #4) 300-60 MG per tablet, Take 1 Tab by mouth., Disp: , Rfl: alprazolam (XANAX) 1 MG tablet, alprazolam 1 mg tablet T1T PO QD, Disp: , Rfl: busPIRone (BUSPAR) 10 MG tablet, Take 10 mg by mouth 3 times daily., Disp: , Rfl: cefUROXime (CEFTIN) 500 MG tablet, cefuroxime axetil 500 mg tablet, Disp: , Rfl: Cholecalciferol (VITAMIN D) 2000 units CAPS, Take 2,000 Units by mouth daily., Disp: 120 Cap, Rfl: 3 Cholestyramine 4 GM/DOSE POWD, Take 4 g by mouth 3 times daily., Disp: 90 Can, Rfl: 3 clonazePAM (KLONOPIN OR), Take 1 mg by mouth 3 times daily., Disp: , Rfl: Clotrimazole (CLOTRIMAZOLE-7) 1 % CREA, Place 1 application vaginally daily., Disp: 1 Tube, Rfl: 3 dicyclomine (BENTYL) 10 MG capsule, Take 1 Cap by mouth 4 times daily ( before meals and nightly). 1 by mouth four times a day, Disp: 120 Cap, Rfl: 6 escitalopram (LEXAPRO) 10 MG tablet, escitalopram 10 mg tablet, Disp: , Rfl : estradiol (ESTRACE) 1 MG tablet, estradiol 1 mg tablet, Disp: , Rfl: Ferrous Sulfate (IRON) 325 (65 Fe) MG TABS, Take 325 mg by mouth two times daily., Disp: 120 Each, Rfl: 3 pantoprazole (PROTONIX) 40 MG tablet, Take 1 Tab by mouth 2 times daily ( before meals). 1 tablet by mouth every day, Disp: 60 Tab, Rfl: 5 Pantoprazole Sodium 40 MG PACK, Take 40 mg by mouth daily., Disp: 90 Each, Rfl: 3 raNITIdine HCl (ZANTAC OR), , Disp: , Rfl: Sertraline HCl (ZOLOFT OR), Take by mouth., Disp: , Rfl: Ustekinumab (STELARA) 90 MG/ML injection, Inject 90 mg into the skin every 28 days., Disp: 90 mg, Rfl: 5 Review of Systems: A 10 point review of systems was conducted. All pertinent positives and negatives are addressed in the HPI. All others were negative except: abdominal pain Physical Exam: Vital Signs Height: 5' 2" (157.5 cm) Weight - Scale: 145 lb (65.8 kg) Temp: 98.1 F (36.7 C) Pulse: 99 BP: 111/77 Patient Position: Sitting Cuff Size: regular BP Location: left arm Body mass index is 26.52 kg/m. General: alert, no distress HEENT: moist mucus membranes, EOMI Resp: no tachypnea, no wheezing CV: RRR, no LE edema GI: abd soft, nontender, nondistended, well healed surgical scars Hernia: Reducible hernia superior to midline incision. Skin: no rashes, no jaundice MSK: no deformity, no gait abnormality Neuro: oriented x 3, no focal deficits Imaging: CT scans personally reviewed, midline defect above umbilicus, surrounding muscles intact Assessment: Ventral hernia Plan: 1. Smoking cessation - patient will need to quit smoking at least 6 weeks prior to hernia repair. Irecommended a quit date of 07/31/19. Patient's significant other will notify me if she has not quit bythis time 2. Recommend robotic assisted laparoscopic ventral hernia repair with mesh. We also discussed possibility of conversion to open depending on extent of adhesive disease 3. Discussed possible recurrence risk (up to 30%) 4. Reviewed post op lifting restrictions. 5. Patient states she is working with a nurse at [facility] [place] and will obtain nicotine patches through this service 6. Will schedule for surgery 09/19. Patient's family will call and cancel surgery if patient has not stopped smoking. Luís Dalal MD documented in this encounter Plan of Treatment Date Type Specialty Care Team Description 10/10/2019 Office Visit General Surgery Luís Dalal MD [address] [place] [phone] Name Type Priority Associated Diagnoses Order Schedule DE LO FLEX L1-BELOW DE Charge Routine Ventral incisional hernia Ordered: L5 PRE OTS Health Maintenance Due Date Last Done Comments MAMMOGRAM ANNUAL 1970 TETANUS SHOT (ADULT) 09/13/1986 BMI FOLLOW UP PLAN 09/13/1989 HIV SCREENING 09/13/1989 CERVICAL CANCER SCREENING 3 YEAR FOLLOW UP 09/13/1992 MEDICARE AWV (Initial) 10/27/2014 FLU VACCINE > 6 MONTHS Completed 05/17/2019 documented as of this encounter Results Not on filedocumented in this encounter Visit Diagnoses Diagnosis Ventral incisional hernia - Primary Smoking trying to quit Tobacco use disorder documented in this encounter Insurance Payer Benefit Plan / Subscriber ID Effective Phone Address Type Group Dates [employer] xxxxxxxxx 2019-Pres [address] [address] Medicare HEALTHCARE PPO[place] [address] MEDICAID [facility]-MEDICAID xxxxxxxxx 2017-Astrid [address] Medicaid - [place] [id number] [place] [address] documented as of this encounter
--- OUTSIDE RECORDS SUMMARY | 2019-07-27 15:29 | XMS REPORT | Encounter Summary ---
[...] Reminders Provider Appointments Est on or around [facility] 09/07/2019 Jer Wang MD Lab None recorded. Referral None recorded. Procedures None recorded. Surgeries None recorded. Imaging None recorded. Medications Name Start Date acetaminophen 300 mg-codeine 30 mg tablet acetaminophen 300 mg-codeine 60 mg tablet alprazolam 1 mg tablet alprazolam 2 mg tablet amoxicillin 500 mg capsule amoxicillin 875 mg-potassium clavulanate 125 mg tablet buspirone 15 mg tablet Take 1 tablet [...] day by vaginal route for 3 days. Cortrosyn 0.25 mg solution for injection diazepam 10 mg tablet diazepam 5 mg tablet dicyclomine 10 mg capsule dicyclomine 20 mg tablet doxycycline hyclate 100 mg tablet estradiol 1 mg tablet fluconazole 100 mg tablet fluconazole 150 mg tablet fluconazole 200 mg tablet gabapentin 300 mg capsule hydrocodone 5 mg-acetaminophen 325 mg tablet hydrocodone 7.5 mg-acetaminophen 325 mg tablet hydrocortisone 20 mg tablet Lexapro 10 mg tablet Take 1 tablet by mouth every morning. lidocaine HCl 2 % mucosal jelly loperamide 2 mg capsule mesalamine 1.2 gram tablet,delayed release Take 2 tablets every day by oral route in the morning. methylprednisolone 4 mg tablets in a dose pack metoclopramide 10 mg tablet metronidazole 500 mg tablet montelukast 10 mg tablet nitrofurantoin monohydrate/macrocrystals 100 mg capsule [...] intravenous solution Stelara 90 mg/mL subcutaneous syringe sucralfate 1 gram tablet sulfamethoxazole 800 mg-trimethoprim 160 mg tablet Take [...] Code System Name Reaction Severity Status Onset 865101 RxNorm Remeron Other Active 11/27/2017 057990 RxNorm Cipro Active 994330 RxNorm Phenergan Active 61106 RxNorm Trazodone Hives Active Problems Name Status Onset Date Source Anxiety Disorder Active 10/23/2017 Endometriosis (Clinical) Active 10/23/2017 Panic Disorder without Agoraphobia Active Generalized Anxiety Disorder Active Procedures Date Name Performed by Caesarean Section Information not available Total Hysterectomy Information not available Vaccine List None recorded. Social History Tobacco Smoking Status Current Every Day Smoker Past Encounters 06/10/2019 Generalized Anxiety Disorder; Panic Disorder without Agoraphobia Vj Wang MD: [address], [facility], [place] [address], Ph. [phone] History of Present Illness Psych Medication Management Reported By: Patient HPI: Medications: taking medications as directed, no side effects from medication. General overall feeling: feeling as well as can be expected Psychiatric General Follow-Up Reported By: Patient HPI: Context: no relationship stress, good family dynamics Associated Symptoms: Mood: no sadness. Anxiety: no generalized worry. Sleep: no insomnia. Appetite: no change Prior Treatment and Review:: Medication Compliance: greater than 90% Note: <p>Here for routine med. check. Reports doing really well. No significant problems since last visit. Compliant with meds. No AE. Sleeping well at night. Appetite stable. E/C okay. Mood has been stable. Health is much better recently with no flare ups. No acute psychosocial stressors. Home life unchanged. Denies ETOH/drugs. No legal issues.</p> Review of Systems None recorded. Physical Exam Mental Status Exam Reported By: Patient Mental Status Exam: Appearance: well-groomed, clean. Behavior: eye contact, cooperative. Speech: fluent. Perception: no hallucinations. Cognition: alert, oriented to situation, oriented to time, oriented to place, oriented to person, memory intact. Intelligence: average. Memory: remote, recent. Mood: euthymic. Affect: pleasant. Insight: intact. Judgment: intact. Thought Processes: intact. Thought Content: unremarkable
--- OUTSIDE RECORDS SUMMARY | 2019-07-27 15:29 | XMS REPORT | Summary of Care ---
:1970 Author Organization [place] [address] Care Team Providers Name Role Phone Mychal Dai MD Primary Care Provider Reason for Referral Radiology Services (Routine) Status Reason Specialty Diagnoses / Procedures Referred By Referred To Contact Contact Pending Radiology Diagnoses Crohn's disease with complication, unspecified gastrointestinal tract location ( HCCode) Arnaldo Zelaya McNair, Radiology Procedures CT ABD/PELVIS ENTEROGRAPHY [address] [facility] 1st Floor [address] [place] [address] Reason for Visit Reason Comments Follow Up Inflamation Bloated Refill Stelara Encounter Details Date Type Department Care Team Description 06/12/2019 Office Visit [facility] Arnaldo Rosa MD Follow Up Medicine [address] (Inflamation ); Gastroenterology Street Bloated; Refill [address] [facility] [address] (Stelara) 8th Floor, [address] [place] [id number] [place], [place] [phone] [id number] [phone] Allergies Active Allergy Reactions Severity Noted Date Comments Ciprofloxacin Hives, Swelling 10/25/2011 Promethazine Hcl Other (See Comments) 10/25/2011 Muscle twiching documented as of this encounter (statuses as of 06/12/2019) Medications Medication Sig Dispensed Refills Start End Status Date Date Sertraline HCl Take by mouth. 0 Active (ZOLOFT OR) PANTOPRAZOLE SODIUM Take 40 mg by 0 Active OR mouth daily. clonazePAM (KLONOPIN Take 1 mg by 0 Active OR) mouth 3 times daily. Oxycodone HCl 10 MG TK ONE T PO Q 4 0 Active TABS H PRN P [address] 1 1 Tube 3 Active (CLOTRIMAZOLE-7) 1 % application 9 CREAIndications: vaginally Crohn's disease of daily. both small and large intestine with other complication (HCCode), History of immunosuppression therapy, Vaginal ye pantoprazole Take 1 Tab by 60 Tab 5 Active (PROTONIX) 40 MG mouth 2 times 9 tabletIndications: daily (before Crohn's disease of meals). 1 both small and large tablet by mouth intestine with other every day complication (HCCode), Gastroesophageal reflux disease, esophagitis presence not specified Ustekinumab (STELARA) Inject 90 mg 90 mg 5 Active 90 MG/ML injection into the skin 9 every 28 days. busPIRone (BUSPAR) 10 Take 10 mg by 0 Active MG tablet mouth 3 times daily. Cholestyramine 4 Take 4 g by 90 Can 3 Active GM/DOSE mouth 3 times 9 POWDIndications: daily. Crohn's disease of small intestine with intestinal obstruction (HCCode) dicyclomine (BENTYL) Take 1 Cap by 120 Cap 6 Active 10 MG mouth 4 times 9 capsuleIndications: daily (before Crohn's disease of meals and small intestine with nightly). 1 by intestinal mouth four obstruction (HCCode) times a day Ferrous Sulfate Take 325 mg by 120 Each 3 Active (IRON) 325 (65 Fe) MG mouth two times 9 TABSIndications: daily. Crohn's disease of small intestine with intestinal obstruction (HCCode) Cholecalciferol Take 2,000 120 Cap 3 Active (VITAMIN D) 2000 Units by mouth 9 units daily. CAPSIndications: Crohn's disease of small intestine with intestinal obstruction (HCCode) acetaminophen-codeine 300 mg as 0 Discontinued (TYLENOL/CODEINE #3) needed. 020 (*Therapy 300-30 MG per tablet completed) clindamycin (CLEOCIN) TK ONE C PO Q 0 Discontinued 300 MG capsule 6 HOURS FOR 14 9 020 (*Therapy DAYS completed) fluconazole Take 1 Tab by 2 Tab 2 Discontinued (DIFLUCAN) 150 MG mouth daily. - 9 020 (*Therapy tabletIndications: then repeat completed) Crohn's disease of dose in 7 weeks both small and large intestine with other complication (HCCode), History of immunosuppression therapy, Vaginal ye documented as of this encounter (statuses as of 06/12/2019) Active Problems Problem Noted Date Crohn's disease of both small and large intestine with other complication 09/2018 (HCCode) History of immunosuppression therapy 09/03/2018 Medication monitoring encounter 09/03/2018 Intestinal malabsorption 09/03/2018 Small bowel obstruction (HCCode) 09/03/2018 History of Clostridium difficile infection 09/03/2018 Chronic abdominal pain 09/03/2018 Macrocytic anemia 09/03/2018 Osteopenia 09/03/2018 Heavy smoker 09/03/2018 documented as of this encounter (statuses as of 06/12/2019) Social History Tobacco Use Types Packs/Day Years [...] Sign Reading Time Taken Comments Blood Pressure 100/69 06/12/2019 8:20 AM OXYACETYLENE WELDER Pulse 98 06/12/2019 8:20 AM OXYACETYLENE WELDER Temperature 37.1 C (98.8 F) 06/12/2019 8:20 AM OXYACETYLENE WELDER Respiratory Rate 16 06/12/2019 8:20 AM OXYACETYLENE WELDER Oxygen Saturation - - Inhaled Oxygen Concentration - - Weight 67.2 kg (148 lb 3.2 oz) 06/12/2019 8:20 AM OXYACETYLENE WELDER Height 157.5 cm (5' 2") 06/12/2019 8:20 AM OXYACETYLENE WELDER Body Mass Index 27.11 06/12/2019 8:20 AM OXYACETYLENE WELDER documented in this encounter Progress Notes Arnaldo Zelaya MD - 06/12/2019 8:30 AM CST Subsequent Visit Note Gastroenterology Chief Complaint Patient presents with Follow Up Inflamation Bloated Refill Stelara HPI: Angela Rodriguez is a 48 y.o. female presenting with a history of Crohn's disease. BACKGROUND: Diagnosed with Crohn's in 2006 in the ileum and had 18 inches removed at that time. Symptoms began 3years before. Has been treated prednisone, asacol, metronidazole until Remicade was started in 2012 (took for 3 months, non responder), then Humira (took for 3 months, non responder). Then no biologic or maintenancetreatment besides prednisone and metronidazole intermittently until August 2018 at which point Stelara was started, she had a further small bowel resection in October 2018 (8 inches removed). Last colonoscopy, 3 months ago- was told she had "inflammation" Averages 6 BM/day, no blood. Left sided abdominal pain, every day. Has lost 10 pounds voluntarily. On stelara every 4 weeks, no issues with that. Has had two flare episodes where she was given medrol packs. 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 Has joint pain, in knees, hip, shoulder. Hx of shingles- but has never gotten vaccine. Also gets mouth ulcers. Endoscopy: No report available Radiology: CT abdo- August 2018 PMH: Past Medical History: Diagnosis Date Anxiety Arthritis Autoimmune disorder (HCCode) Crohn's disease (HCCode) Depression Heartburn History of shingles Migraine headache UTI (urinary tract infection) PSH: Past Surgical History: Procedure Laterality Date HX ANKLE SURGERY Left HX SECTION HX HYSTERECTOMY HX SMALL INTESTINE SURGERY HX WRIST SURGERY Right FH: No GI malignancy or IBD SH: Smoking: pack a day for many years Alcohol: no Work: on disability Medications Current Outpatient Medications on File Prior to Visit Medication Sig Dispense Refill busPIRone (BUSPAR) 10 MG tablet Take 10 mg by mouth 3 times daily. Cholecalciferol (VITAMIN D) 2000 units CAPS Take 2,000 Units by mouth daily. 120 Cap 3 Cholestyramine 4 GM/DOSE POWD Take 4 g by mouth 3 times daily. 90 Can 3 clonazePAM (KLONOPIN OR) Take 1 mg by mouth 3 times daily. Clotrimazole (CLOTRIMAZOLE-7) 1 % CREA Place 1 application vaginally daily. 1 Tube 3 dicyclomine (BENTYL) 10 MG capsule Take 1 Cap by mouth 4 times daily ( before meals and nightly).1 by mouth four times a day 120 Cap 6 Ferrous Sulfate (IRON) 325 (65 Fe) MG TABS Take 325 mg by mouth two times daily. 120 Each 3 Oxycodone HCl 10 MG TABS TK ONE T PO Q 4 H PRN P 0 pantoprazole (PROTONIX) 40 MG tablet Take 1 Tab by mouth 2 times daily ( before meals). 1 tablet by mouth every day 60 Tab 5 PANTOPRAZOLE SODIUM OR Take 40 mg by mouth daily. Sertraline HCl (ZOLOFT OR) Take by mouth. Ustekinumab (STELARA) 90 MG/ML injection Inject 90 mg into the skin every 28 days. 90 mg 5 No current facility-administered medications on file prior to visit. ALLERGIES: Ciprofloxacin and Phenergan [promethazine hcl] REVIEW OF SYSTEMS: General: yes to fever, chills, fatigue.Ophthalmic: no blurry vision, no erythema.ENT: yes oral lesions, no vocal changes. Respiratory: no cough, no wheezing, no shortness of breath. Cardiovascular: nochest pain, no dyspnea on exertion. Gastrointestinal: see HPI. Genitourinary: no dysuria, yes trouble voiding, or hematuria. Musculoskeletal: yes joint pains, no joint swelling. Neurological: no numbness/tingling. Dermatological: yes skin rashes. Psychological: yes anxiety, yes depression PHYSICAL EXAM: Vitals: 06/12/19 0820 BP: 100/69 BP Location: right arm Patient Position: Sitting Cuff Size: regular Pulse: 98 Resp: 16 Temp: 98.8 F (37.1 C) TempSrc: Oral Weight: 148 lb 3.2 oz (67.2 kg) Height: 5' 2" (1.575 m) Body mass index is 27.11 kg/m. Constitutional: no distress, awake/alert/oriented x4 HEENT: PERRL, EOMI, moist mucous membranes, oropharynx clear, anicteric Neck: supple, no LAD CV: RRR, normal S1/S2, no extra heart sounds/rub/gallop Resp: Good and equal air entry bilaterally, no wheezes or crackles, no increased work of breathing Abd: soft, nontender, no masses, no guarding or rebound Ext: warm, well perfused, no clubbing, no edema Neuro: grossly intact Skin: dry, intact Data Review: Laboratory: Lab Results Component Value Date WBC 14.2 (H) 09/04/2018 HGB 13.7 09/04/2018 HCT 41.7 09/04/2018 MCV 94.1 09/04/2018 PLT 789 (H) 09/04/2018 Lab Results Component Value Date CRP 0.7 (H) 09/04/2018 Lab Results Component Value Date ALB 4.2 09/04/2018 Lab Results Component Value Date ALKPHOS 104 09/04/2018 Lab Results Component Value Date ALT 17 09/04/2018 AST (SGOT) Date Value Ref Range Status 09/04/2018 24 9 - 40 U/L Final 10/04/2001 47 0 - 40 Lab Results Component Value Date CREATININE 0.77 09/04/2018 There is no immunization history on file for this patient. ASSESSMENT and PLAN: Angela Rodriguez is a 48 y.o. female with the following ongoing issues: #1 Crohn's disease, ileocolonic, two surgical resections in 2006 and 2018. Has failed Remicade and Humira - non-responder to both. Currently on Stelara [id number] #[id number] Symptoms of bloating and frequent flare symptoms #3 Osteoporosis of left hip #4 Adrenal insufficiency from previous prednisone use #5 Hx of Shingles #6 Hx of Hernia #7 Hx of C diff My recommendations are as follows: 1. CT enterography for small bowel delineation 2. Follow up with endocrinology for bisphosphonate given osteoporosis and adrenal insufficiency 3. Follow up with surgery regarding hernia 4. PCP to consider vaccination for shingles with inactivated vaccine shingrix 5. Labs today to assess nutritional and inflammatory panels 6. Stool testing for C diff 7. Cholestyramine use encouraged. 8. Stelara levels before next dose 9. Follow up paired with our colorectal surgery team 10. Needs to stop smoking for Crohn's disease to improve It's a pleasure to be involved in Angela Rodriguez care, Yours sincerely, Arnaldo Zelaya MD documented in this encounter Plan of Treatment Name Type Priority Associated Diagnoses Order Schedule CBC W/AUTO DIFF WITH Lab Routine Crohn's disease with Ordered: PLATELETS complication, 06/12/2019 unspecified gastrointestinal tract location (HCCode) CELIAC DISEASE PANEL Lab Routine Crohn's disease with Ordered: complication, 06/12/2019 unspecified gastrointestinal tract location (HCCode) VITAMIN B12 Lab Routine Crohn's disease with Ordered: complication, 06/12/2019 unspecified gastrointestinal tract location (HCCode) VITAMIN D 25 HYDROXY Lab Routine Crohn's disease with Ordered: complication, 06/12/2019 unspecified gastrointestinal tract location (HCCode) CALCIUM Lab Routine Crohn's disease with Ordered: complication, 06/12/2019 unspecified gastrointestinal tract location (HCCode) COMPREHENSIVE Lab Routine Crohn's disease with Ordered: METABOLIC PANEL complication, 06/12/2019 unspecified gastrointestinal tract location (HCCode) C-REACTIVE PROTEIN Lab Routine Crohn's disease with Ordered: complication, 06/12/2019 unspecified gastrointestinal tract location (HCCode) MAGNESIUM Lab Routine Crohn's disease with Ordered: complication, 06/12/2019 unspecified gastrointestinal tract location (HCCode) IRON, TIBC AND Lab Routine Crohn's disease with Ordered: FERRITIN PANEL complication, 06/12/2019 unspecified gastrointestinal tract location (HCCode) CLOSTRIDIUM DIFFICILE Microbiology Routine Crohn's disease with Ordered: TOXIN/GDH WITH REFLEX complication, 06/12/2019 TO PCR unspecified gastrointestinal tract location (HCCode) CT ABD/PELVIS Imaging Routine Crohn's disease with 1 Occurrences ENTEROGRAPHY W complication, starting unspecified 06/12/2019 until gastrointestinal tract 01/11/2020 location (HCCode) STELARA(R)USTEKINUMAB Lab Routine Crohn's disease with Ordered: complication, 06/12/2019 unspecified gastrointestinal tract location (HCCode) Health Maintenance Due Date Last Done Comments MAMMOGRAM ANNUAL 1970 TETANUS SHOT (ADULT) 09/13/1986 BMI FOLLOW UP PLAN 09/13/1989 HIV SCREENING 09/13/1989 CERVICAL CANCER SCREENING 3 YEAR FOLLOW UP 09/13/1992 MEDICARE AWV (Initial) 10/27/2014 FLU VACCINE > 6 MONTHS Completed 05/17/2019 documented as of this encounter Results Not on filedocumented in this encounter Visit Diagnoses Diagnosis Crohn's disease with complication, unspecified gastrointestinal tract location (HCCode) - Primary Heavy smoker History of Clostridium difficile infection Personal history of other infectious and parasitic disease Intestinal malabsorption, unspecified type documented in this encounter Insurance Payer Benefit Plan / Subscriber ID Effective Dates Phone Address Type Group MEDICARE MEDICARE PART A xxxxxxxxxxx 2019-Present [address] Medicare & [place] [address] MEDICAID TMHP-MEDICAID - xxxxxxxxx 2017-Present [address] [place] [address] Cher (Home) [address] [place] [phone] documented as of this encounter
--- OUTSIDE RECORDS SUMMARY | 2019-07-27 15:29 | XMS REPORT | Summary of Care ---
:1970 Author Organization [facility] [place] [address] Care Team Providers Name Role Phone Mychal Dai MD Primary Care Provider Reason for Visit Reason Comments Follow Up Hiatal Hernia Encounter Details Date Type Department Care Team Description 06/19/2019 Office Visit [facility] Arnaldo Zelaya MD Follow Up ; Hiatal Medicine [address] [place] [address] [place] [address] [address] 8th Floor, [address] [phone] [address] [phone] Allergies Active Allergy Reactions Severity Noted Date Comments Ciprofloxacin Hives, Swelling 10/25/2011 Promethazine Hcl Other (See Comments) 10/25/2011 Muscle twiching documented as of this encounter (statuses as of 06/19/2019) Medications Medication Sig Dispensed Refills Start End Status Date Date Sertraline HCl Take by mouth. 0 Active (ZOLOFT OR) PANTOPRAZOLE SODIUM Take 40 mg by 0 Active OR mouth daily. clonazePAM (KLONOPIN Take 1 mg by 0 Active OR) mouth 3 times daily. [address] 1 1 Tube 3 Active [...] of small intestine with intestinal obstruction (HCCode) Oxycodone HCl 10 MG TK ONE T PO Q 4 0 Discontinued TABS H PRN P 9 020 (*Therapy completed) documented as of this encounter (statuses as of 06/19/2019) Active Problems Problem Noted Date Crohn's disease of both small and large intestine with other complication 09/2018 (HCCode) History of immunosuppression therapy 09/03/2018 Medication monitoring encounter 09/03/2018 Intestinal malabsorption 09/03/2018 Small bowel obstruction (HCCode) 09/03/2018 History of Clostridium difficile infection 09/03/2018 Chronic abdominal pain 09/03/2018 Macrocytic anemia 09/03/2018 Osteopenia 09/03/2018 Heavy smoker 09/03/2018 documented as of this encounter (statuses as of 06/19/2019) Social History Tobacco Use Types Packs/Day Years [...] Sign Reading Time Taken Comments Blood Pressure 127/70 06/19/2019 10:57 AM CARROTER Pulse 95 06/19/2019 10:57 AM CARROTER Temperature 36.6 C (97.8 F) 06/19/2019 10:57 AM CARROTER Respiratory Rate 18 06/19/2019 10:57 AM CARROTER Oxygen Saturation - - Inhaled Oxygen Concentration - - Weight 66.7 kg (147 lb) 06/19/2019 10:57 AM CARROTER Height 157.5 cm (5' 2") 06/19/2019 10:57 AM CARROTER Body Mass Index 26.89 06/19/2019 10:57 AM CARROTER documented in this encounter Progress Notes Arnaldo Zelaya MD - 06/19/2019 11:00 AM CST Subsequent Visit Note Gastroenterology Chief Complaint Patient presents with Follow Up Hiatal Hernia HPI: Angela Rodriguez is a 48 y.o. female presenting for follow-up with a history of Crohn's disease. BACKGROUND: [...] insufficiency and is going to follow with district court justice. Has joint pain, in knees, hip, shoulder. Hx of shingles- but has never gotten vaccine. Also gets mouth ulcers. Endoscopy: No report available Radiology: CT abdo- August 2018 UPDATE- Jun 19, 2019: We reviewed labs today which showed an elevated CRP at 8.3. Remaining labs were unremarkable. She underwent a CT enterography today which showed: Previously seen inflammatory change adjacent to the ileocolic anastomosis has significantly decreased. No abscess or fistula is Identified. Question segmental mild wall thickening in the descending and sigmoid colon. She tried cholestyramine but it constipated her. She is still averaging 6 BM/ day. She saw our colorectal surgery team and will be scheduled for a hernia operation. PMH: Past Medical History: Diagnosis Date Anxiety [...] mouth two times daily. 120 Each 3 pantoprazole (PROTONIX) 40 MG tablet Take 1 [...] yes anxiety, yes depression PHYSICAL EXAM: Vitals: 06/19/19 1057 BP: 127/70 BP Location: right arm Pulse: 95 Resp: 18 Temp: 97.8 F (36.6 C) Weight: 147 lb (66.7 kg) Height: 5' 2" (1.575 m) Body mass index is 26.89 kg/m. Constitutional: no distress, awake/alert/oriented x4 HEENT: [...] Laboratory: Lab Results Component Value Date WBC 7.6 06/18/2019 HGB 15.1 06/18/2019 HCT 44.9 06/18/2019 MCV 96.8 06/18/2019 PLT 291 06/18/2019 Lab Results Component Value Date CRP 8.3 (H) 06/18/2019 Lab Results Component Value Date ALB 4.2 06/18/2019 Lab Results Component Value Date ALKPHOS 92 06/18/2019 Lab Results Component Value Date ALT 10 06/18/2019 AST (SGOT) Date Value Ref Range Status 09/04/2018 24 9 - 40 U/L Final 10/04/2001 47 0 - 40 Lab Results Component Value Date CREATININE 0.76 06/18/2019 There is no immunization history on file for this patient. ASSESSMENT and PLAN: Agnela Rodriguez is a 48 y.o. female with the following ongoing issues: #1 Crohn's disease, ileocolonic, two surgical resections in 2006 and 2019. Has failed Remicade and Humira - non-responder to both. Currently on Stelara [id number] #[address] enterography today which showed improved ileocolonic anastomosis inflammation and a question of mild inflammation in the descending and sigmoid colon #3 Symptoms of bloating and frequent flare symptoms #4 Osteoporosis of left hip #5 Adrenal insufficiency from previous prednisone use #6 Hx of Shingles #7 Hx of Hernia #8 Hx of C diff My recommendations are as follows: 1. I was encouraged by the CT enterography findings today which showed improved levels of inflammation. Of concern however is still the elevated CRP at 8.3. I have encouraged her to give us a C diff sample as well as a fecal calprotectin given her history. I have also asked her to attach or send in the colonoscopy report with biopsies from 3 months ago so that I can review this. 2. I have asked for Stelara levels to be checked prior to the next injection. 3. Follow up with endocrinology for bisphosphonate given osteoporosis and adrenal insufficiency 4. Colorectal surgical team will follow up for hernia operation. 5. PCP to consider vaccination for shingles with inactivated vaccine shingrix 6. Cholestyramine use encouraged however at a much lower dose 7. Needs to stop smoking for Crohn's disease to continue to improve It's a pleasure to be involved in Angela Rodriguez care, Yours sincerely, Arnaldo Zelaya MD documented in this encounter Plan of Treatment Name Type Priority Associated Diagnoses Order Schedule CLOSTRIDIUM DIFFICILE Microbiology Routine Crohn's disease with Ordered: TOXIN/GDH WITH REFLEX complication, unspecified 06/19/2019 TO PCR gastrointestinal tract location (HCCode) History of Clostridium difficile infection CULTURE, STOOL Microbiology Routine Crohn's disease with Ordered: complication, unspecified 06/19/2019 gastrointestinal tract location (HCCode) History of Clostridium difficile infection CALPROTECTIN, FECAL Lab Routine Crohn's disease with Ordered: complication, unspecified 06/19/2019 gastrointestinal tract location (HCCode) History of Clostridium difficile infection Health Maintenance Due Date Last Done Comments [...] unspecified gastrointestinal tract location (HCCode) - Primary History of Clostridium difficile infection Personal history of other infectious and parasitic disease documented in this encounter Insurance Payer Benefit Plan / Subscriber ID Effective Phone Address Type Group Dates MEDICAID TMHP-MEDICAID xxxxxxxxx 2017-Prese [address] - MEDICAID [place] [id number] [place] [address] [employer] CHOICE xxxxxxxxx 2019-Pres [address] [address] Medicare HEALTHCARE PPO/MEDICARE ent [facility] [phone] documented as of this encounter
--- OUTSIDE RECORDS SUMMARY | 2019-07-27 15:29 | XMS REPORT | Summary of Care ---
:1970 Author Organization [facility] [place] [address] Care Team Providers Name Role Phone Mychal Dai MD Primary Care Provider Reason for Referral Consult, Test & Treat (Routine) Status Reason Specialty Diagnoses / Referred By Referred To Procedures Contact Contact Pending Consult, General Surgery Diagnoses Incisional hernia, without obstruction or gangrene Ref Dr. Sanchez;possible incisional hernia Gracie Garza Loor, Michele Test, and Procedures MO OFFICE OUTPATIENT NEW 30 MINUTES CHA Keating MD Treat [address] [phone] Phone: Fax: Reason for Visit Reason Comments Establish Care Encounter Details Date Type Department Care Team Description 06/19/2019 Office Visit [facility] [place] Jani Ornelas MD [facility] Freddy Medrano [address] [place] [address] Cancer Center [phone] [address] [facility] 7th Floor, [address] [place] [address] Allergies Active Allergy Reactions Severity Noted Date Comments Ciprofloxacin Hives, Swelling 10/25/2011 Promethazine Hcl Other (See Comments) 10/25/2011 Muscle twiching documented as of this encounter (statuses as of 07/03/2019) Medications Medication Sig Dispensed Refills Start End Status Date Date Sertraline HCl Take by mouth. 0 Active (ZOLOFT OR) clonazePAM (KLONOPIN Take 1 mg by 0 Active OR) mouth 3 times daily. Cl[address] Place 1 1 Tube 3 Active (CLOTRIMAZOLE-7) 1 % application 9 CREAIndications: vaginally Crohn's disease of daily. both small and large intestine with other complication (HCCode), History of immunosuppression therapy, Vaginal ye Ustekinumab (STELARA) Inject 90 mg 90 mg [...] of small intestine with intestinal obstruction (HCCode) PANTOPRAZOLE SODIUM Take 40 mg by 0 Discontinued OR mouth daily. 020 (Reorder) Oxycodone HCl 10 MG TK ONE T PO Q 4 0 Discontinued TABS H PRN P 9 020 (*Therapy completed) pantoprazole Take 1 Tab by 60 Tab 5 Discontinued (PROTONIX) 40 MG mouth 2 times 9 020 (Reorder) tabletIndications: daily (before Crohn's disease of meals). 1 both small and large tablet by mouth intestine with other every day complication (HCCode), Gastroesophageal reflux disease, esophagitis presence not specified documented as of this encounter (statuses as of 07/03/2019) Active Problems Problem Noted Date Crohn's disease of both small and large intestine with other complication 09/2018 (HCCode) History of immunosuppression therapy 09/03/2018 Medication monitoring encounter 09/03/2018 Intestinal malabsorption 09/03/2018 Small bowel obstruction (HCCode) 09/03/2018 History of Clostridium difficile infection 09/03/2018 Chronic abdominal pain 09/03/2018 Macrocytic anemia 09/03/2018 Osteopenia 09/03/2018 Heavy smoker 09/03/2018 documented as of this encounter (statuses as of 07/03/2019) Social History Tobacco Use Types Packs/Day Years [...] Sign Reading Time Taken Comments Blood Pressure 138/86 06/19/2019 9:35 AM INKING MACHINE TENDER Pulse 78 06/19/2019 9:35 AM INKING MACHINE TENDER Temperature - - Respiratory Rate 16 06/19/2019 9:35 AM INKING MACHINE TENDER Oxygen Saturation - - Inhaled Oxygen Concentration - - Weight 66.6 kg (146 lb 12.8 oz) 06/19/2019 9:35 AM INKING MACHINE TENDER Height 157.5 cm (5' 2") 06/19/2019 9:35 AM INKING MACHINE TENDER Body Mass Index 26.85 06/19/2019 9:35 AM INKING MACHINE TENDER documented in this encounter Progress Notes Jani Sanchez MD - 06/19/2019 9:15 AM CST Department of Surgery Division of Colorectal Surgery Chief Complaint Patient presents with Establish Care Angela Rodriguez is a 47 year old female with a PMH significant for endometriosis s/p hysterectomy, intrathecal pain pump 2/2 chronic endometriosis pain, Crohn's disease s/p SBR w/ ileocecal anastomosis (2006). She presents for follow up to [facility] Colorectal Surgery s/p laparoscopic redo ileocolectomy withileo-ascending colonic anastomosis on 08/20/18. Patient presents today due to a concern for an incisional hernia. Patient states following surgery she was lifting a case of beer and afterwards noticed a"bulge" at the proximal aspect of her midline incision. She admits to left sided abdominal pain which occurs every day. She admits to 6 bowel movements daily. She denies fever, chills, nausea, and vomiting. She denies rectal bleeding. She is currently on Stelara for medical management. Patient states she has an appointment with Gastroenterology today and is undergoing an MRE. Vitals: 06/19/19 0935 BP: 138/86 Pulse: 78 Resp: 16 Weight: 146 lb 12.8 oz (66.6 kg) Height: 5' 2" (1.575 m) General: well developed, well nourished, no acute distress Neuro: AAO x 3, no focal deficits noted HEENT: NCAT, EOMI, no scleral icterus, MMM Neck: supple, normal ROM Chest: nonlabored respirations on room air, clear to auscultation bilaterally CV: RRR Abdomen: soft, NT, ND, possible incisional hernia at proximal aspect of midline incision Ext: moves all 4 extremities without difficulty, no edema or deformity Skin: warm and dry; no rashes, nodules, or pallor noted Pathology: DIAGNOSIS A. COLON, RIGHT/ASCENDING, RIGHT HEMICOLECTOMY: - CHRONIC ACTIVE ENTERITIS COMPATIBLE WITH CROHN'S DISEASE (SEE COMMENT) - NEGATIVE FOR GRANULOMAS (OR) VIRAL CYTOPATHIC CHANGES - NEGATIVE FOR DYSPLASIA (OR) MALIGNANCY - MARGINS, UNREMARKABLE Assessment/Plan: Angela Rodriguez is a 47 year old female with a PMH significant for endometriosis s/p hysterectomy, intrathecal pain pump 2/2 chronic endometriosis pain, Crohn's disease s/p SBR w/ ileocecal anastomosis (2006). She presents for follow up to [facility] Colorectal Surgery s/p laparoscopic redo ileocolectomy withileo-ascending colonic anastomosis on 08/20/18. Patient presents today for a possible incisional hernia. - We discussed referring the patient to Dr. Dalal for a hernia repair. The patient states at this time she would like to wait as she is being re-evaluated today by her Tunnel Inspector for her CD thatmay require further surgical intervention. - We will follow up to read of MRE - If she requires surgery for her CD we will repair the hernia at the same time , if she does not require any addition surgery we will refer the patient to Dr. Dalal. - In the meantime, she may call the clinic with any questions or concerns. Gracie Garza PA-C I saw and examined the patient, discussed the disease process and treatment with the patient. I haveedited the note for accuracy and agree with the documentation and note by the physician food and beverage assistant. Thank you for this referral to the [facility] [place] [facility]. Please feel free to call us at [phone] for any questions. We look forward to taking care of this patient mutually. Jani Sanchez M.D. Lead Die Molder and Chief of Colorectal Surgery [facility] documented in this encounter Plan of Treatment Date Type Specialty Care Team Description 07/11/2019 Office Visit General Surgery Luís Dalal MD [address] [place] [id number] Name Type Priority Associated Diagnoses Order Schedule AMB REF TO Outpatient Referral Routine Incisional hernia, Ordered: GENERAL SURGERY without obstruction 06/21/2019 [facility] or [facility] Maintenance Due Date Last Done Comments MAMMOGRAM ANNUAL 1970 TETANUS SHOT (ADULT) 09/13/1986 BMI FOLLOW UP PLAN 09/13/1989 HIV SCREENING 09/13/1989 CERVICAL CANCER SCREENING 3 YEAR FOLLOW UP 09/13/1992 MEDICARE AWV (Initial) 10/27/2014 FLU VACCINE > 6 MONTHS Completed 05/17/2019 documented as of this encounter Results Not on filedocumented in this encounter Visit Diagnoses Diagnosis Crohn's disease with intestinal obstruction, unspecified gastrointestinal tract location (HCCode) - Primary Incisional hernia, without obstruction or gangrene Incisional hernia without mention of obstruction or gangrene documented in this encounter Insurance Payer Benefit Plan / Subscriber ID Effective Dates Phone Address Type Group MEDICAID TMHP-MEDICAID - xxxxxxxxx 2017-Present [address] [place] [address] documented as of this encounter
--- OUTSIDE RECORDS SUMMARY | 2019-07-27 15:29 | XMS REPORT | Encounter Summary ---
:1970 Author Care Team Providers Name Role Phone Mychal Dai MD Primary Care Provider [phone] Jake Franco Recreational Counselor [phone] Reason for Visit Pain Instructions 1. Low back pain urinalysis, dipstick baclofen 10 mg tablet 2. Smoker smoking cessation counseling, greater than 3 minutes up to 10 minutes Discussion Note: None recorded.Patient educational handouts: No information available. Plan of Care Patient Instructions Tylenol and heating pad. Refuses steroids at this time. Reminders Provider Appointments Repeat Pap Jake Franco, 08/01/2019 1:30PM Lab Urinalysis, In-House Results Dipstick 07/12/2019 Referral None recorded. Procedures None recorded. Surgeries None recorded. Imaging None recorded. Medications Name Start Date alprazolam 1 mg tablet T1T PO QD baclofen 10 mg tablet Take 1 tablet 3 times a day by oral route for 10 days. buspirone 15 mg tablet clonazepam 1 mg tablet 1 TAB PO FOUR TIMES A DAILY NEEDED dicyclomine 10 mg capsule escitalopram 10 mg tablet estradiol 1 mg tablet Take 1 tablet every day by oral route. gabapentin 300 mg capsule Take 1 capsule twice a day by oral route. hydrocortisone 20 mg tablet loperamide 2 mg capsule mesalamine 1.2 gram tablet,delayed release 2 TAB PO QD montelukast 10 mg tablet Take 1 tablet every day by oral route. pantoprazole 40 mg tablet,delayed release 1 TAB PO QD Stelara 90 mg/mL subcutaneous syringe sucralfate 1 gram tablet terconazole 0.4 % vaginal cream Insert 1 applicatorful every day by vaginal route for 7 days. Medications Administered None recorded. Vitals Height Weight BMI Blood Pressure 62 in 151 lbs 9 oz 27.7 kg/m2 101/77 mm[Hg] Results Lab Results Date Name Specimen Result Interpretation Description Value Range Status Address 07/13/2019 [facility] Blood Normal [facility] sent to [facility] Collection Collection [facility] (Lab): [address], [place] 07/12/2019 Urinalysis, Leukocytes Negative In-House Dipstick Results: For Internal Use Only Nitrite negative In-House Results: For Internal Use Only Urobilinogen .2 In-House Results: For Internal Use Only Protein Negative In-House Results: For Internal Use Only Ph 6.5 In-House Results: For Internal Use Only Blood Negative In-House Results: For Internal Use Only Specific 1.025 In-House [place] Results: For Internal Use Only Ketone Negative In-House Results: For Internal Use Only Bilirubin Negative In-House Results: For Internal Use Only Glucose Negative In-House Results: For Internal Use Only Appearance Cloudy In-House Results: For Internal Use Only Color Yellow In-House Results: For Internal Use Only 06/17/2019 [facility] [place] Collection Collection [facility] (Lab): [address] [place] [address] Allergies Code Code System Name Reaction Severity Status Onset 20341001 RxNorm Cipro Other Severe Active 15210508 RxNorm Phenergan Facial Moderate Active Swelling Problems Name Status Onset Date Source Chronic Pain Active 08/15/2018 Gastroesophageal Reflux Disease Active 08/15/2018 Crohn's Disease of Small Intestine Active 08/15/2018 Endometriosis (Clinical) Active 08/15/2018 Multiple Joint Pain Active 08/15/2018 Skin Tag Active 10/17/2018 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 Persistent Insomnia Active 12/07/2018 Urinary Tract Infectious Disease Active 12/17/2018 Acute Cystitis Active 12/28/2018 Candidiasis of Vagina Active 01/07/2019 Postsurgical Menopause Active 01/07/2019 Atypical Squamous Cells of Undetermined Active 01/10/2019 Significance on Vaginal Papanicolaou Smear HPV - Human 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 Active 01/10/2019 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, High Risk on Vaginal Specimen Pruritus of Vulva Active 02/12/2019 Peripheral Nerve Disease Active 05/08/2019 Procedures Date Name Performed by 05/01/2006 Hysterectomy Information not available Large Intestine Excision Information not available Cholecystectomy Information not available Vaccine List Vaccine Type influenza, injectable, quadrivalent, preservative free 05/08/2019 Social History Tobacco Smoking Status Heavy Tobacco Smoker (1 PPD) Past Encounters 07/12/2019 Low Back Pain; Smoker Merari Pickett FILTRATION SUPERVISOR: [address] [facility] [address] [place] [phone] , Ph. History of Present Illness Note: Left back pain shooting to buttox x 3-4 weeks. Review of Systems Problem ROS - Female Reported By: Patient Constitutional: Constitutional: no significant weight change, good appetite, no fever, happy/content, normal activity level, no fatigue Eyes: Eyes: no eye pain, no blurry vision, no eye redness, no eye itchiness, no eye swelling, no eye discharge, normal movement ENMT: ENMT: no ear pain, no ear discharge, no hearing loss, no sinus pressure, no drooling, no facial swelling, no congestion, no sore throat, no hoarseness, no mouth lesions Cardiovascular: Cardiovascular: no chest pain, normal heart rate Chest/Breasts: Breasts: no lumps, no tenderness, no discharge Respiratory: Respiratory: no cough, no wheezing, no chest tightness, no pain with respiration, normal respiration Gastrointestinal: GI: no difficulty swallowing, no abdominal pain, no nausea, no vomiting, no diarrhea, no constipation, no blood in stools, no mucous in stool Genitourinary: : no discharge, no blood in urine, no pain with urination, no increase in frequency of urination, no voiding urgency, no vaginal discharge Musculoskeletal: Musculoskeletal: no soft tissue swelling, no joint swelling, no trauma, myalgia Skin: Skin: no pain, no itchiness, no skin dryness, no flaking, no redness, no rash, no diaper rash, no hives, no skin lesions, no skin growths, no skin lumps, no swelling, no bruising, no insect bites Neurological symptoms: Neuro: no numbness, no weakness, no tingling, no burning, no shooting pain, no headache, no dizziness, no loss of conciousness Psychiatric: Psych: no depression, no anxiety, no insomnia, no stress, no loss of interest Endocrine: Endocrine: normal drinking, no temperature intolerance Allergic/Immunologic: Allergy/Immunologic: no sneezing, no runny nose Physical Exam General Adult Exam - Female Reported By: Patient Constitutional: General Appearance: healthy-appearing, well-nourished, well-developed. Level of Distress: NAD. Ambulation: ambulating normally Psychiatric: Insight: good judgement. Mental Status: active and alert, normal mood, normal affect. Orientation: to time, to place, to person. Memory: recent memory normal, remote memory normal Head: Head: normocephalic, atraumatic Eyes: Lids and Conjunctivae: non-injected, no discharge, no pallor. Pupils: PERRLA. Corneas: grossly intact. EOM: EOMI. Lens: clear. Sclerae: non-icteric. Vision: peripheral vision grossly intact, acuity grossly intact ENMT: Ears: no lesions on external ear, EACs clear. Hearing: no hearing loss. Nose: no lesions on external nose, nares patent, no septal deviation, nasal passages clear, no sinus tenderness, no nasal discharge. Lips, Teeth, and Gums: no mouth or lip ulcers, no bleeding gums, normal dentition. Oropharynx: moist mucous membranes, no erythema, no exudates, tonsils not enlarged Neck: Neck: supple, trachea midline, no masses, FROM, no carotid bruits. Lymph Nodes: no cervical LAD, no supraclavicular LAD, no axillary LAD, no inguinal LAD. Thyroid: no enlargement, non-tender, no nodules Lungs: Respiratory effort: no dyspnea. Percussion: no dullness, flatness, or hyperresonance. Auscultation: breath sounds normal, good air movement, CTA except as noted, no wheezing, no rales/crackles, no rhonchi Cardiovascular: Apical Impulse: not displaced. Heart Auscultation: RRR, normal S1, normal S2, no murmurs, no rubs, no gallops. Neck vessels: no carotid bruits. Pulses including femoral / pedal: normal throughout Abdomen: Bowel Sounds: normal. Inspection and Palpation: soft, non-distended, no tenderness, no guarding, no rebound tenderness, no masses, no CVA tenderness. Liver: non-tender, no hepatomegaly. Spleen: non-tender, no splenomegaly. Hernia: periumbilical Musculoskeletal:: Motor Strength and Tone: normal motor strength, normal tone. Joints, Bones, and Muscles: normal movement of all extremities, no bony abnormalities, no contractures, no malalignment, no tenderness. Extremities: no cyanosis, no edema, no varicosities, no palpable cord Neurologic: Gait and Station: normal gait, normal station. Cranial Nerves: grossly intact. Sensation: grossly intact. Reflexes: DTRs 2+ bilaterally throughout. Coordination and Cerebellum: [id number] intact, no tremor Skin: Inspection and palpation: no rash, no lesions, no ulcer, no abnormal nevi, no induration, no nodules, good turgor, no jaundice. Nails: normal Back: Thoracolumbar Appearance: normal curvature
--- OUTSIDE RECORDS SUMMARY | 2019-07-27 15:30 | XMS REPORT | Encounter Summary ---
:1970 Author Care Team Providers Name Role Phone Mychal Dai MD Primary Care Provider [phone] Jake Franco Lining Parts Sewer [phone] Reason for Visit None recorded. Instructions 1. Low back pain baclofen 10 mg tablet Discussion Note: None recorded.Patient educational handouts: No information available. Plan of Care Patient Instructions Social distancing. Reminders Provider Appointments Repeat Pap 08/01/2019 Jake Franco MD 1:30PM Rx Refill 08/06/2019 Mychal Dai MD 11:00AM Lab None recorded. Referral None recorded. Procedures [...] 7 days. Medications Administered None recorded. Vitals None recorded. Results Lab Results Date Name Specimen Result Interpretation Description Value Range Status Address 07/13/2019 [facility] Blood [facility] Urinalysis, Leukocytes Negative In-House Dipstick Results: For Internal Use Only Nitrite negative In-House Results: For Internal Use Only Urobilinogen .2 In-House Results: For Internal Use Only Protein Negative In-House Results: For Internal Use Only Ph 6.5 In-House Results: For Internal Use Only Blood Negative In-House Results: For Internal Use Only Specific 1.025 In-House [place] Results: For Internal Use Only Ketone Negative In-House Results: For Internal Use Only Bilirubin Negative In-House Results: For Internal Use Only Glucose Negative In-House Results: For Internal Use Only Appearance Cloudy In-House Results: For Internal Use Only Color Yellow In-House Results: For Internal Use Only Allergies [...] Heavy Tobacco Smoker (1 PPD) Past Encounters 07/26/2019 Low Back Pain Merari Pickett FACILITIES OPERATOR: [address] [facility] [address], [place] [address] , Ph. 07/12/2019 Low Back Pain; Smoker Merari Pickett, FACILITIES OPERATOR: [address] [facility] [address], [place] [address] , Ph. History of Present Illness Note: Low back pain using baclofen, needs refill. Baclofen is helping. Review of Systems Problem ROS - Female [...] no sneezing, no runny nose Physical Exam Notes: virtual visit.
[2019-07-27] MEDS ORDERED: NA CHLORIDE 0.9% 1,000 ML ONE (16:38)
[2019-07-27] MEDS ORDERED: ONDANSETRON 4 MG/2 ML VIAL ONE (16:38)
[2019-07-27] MEDS ORDERED: MORPHINE 4 MG/ML SYR ONE ×2 (16:38→18:12)
[2019-07-27 16:58] LABS: Albumin 3.2 g/dL (3.4-5.0); Bilirubin Direct 0.1 mg/dL (0-0.2); Bilirubin Total 0.2 mg/dL (0.2-1.0); Potassium 3.7 mmol/L (3.5-5.1); Protein, Total 7.2 g/dL (6.4-8.2)
--- NOTE | 2019-07-27 17:27 | RAD REPORT ---
EXAM DESCRIPTION: CTAbdomen Pelvis W Contrast - 07/27/2019 5:07 pm CLINICAL HISTORY: Abdominal pain. ABD PAIN COMPARISON: <Comparisons> TECHNIQUE: Biphasic CT imaging of the abdomen and pelvis was performed with 100 ml non-ionic IV cont rast. All CT scans are performed using dose optimization technique as appropriate and may include automated exposure control or mA/KV adjustment according to patient size. FINDINGS: The lung bases are clear.Cholecystectomy clips. The liver, spleen, pancreas, adrenal glands and kidneys are within normal limits. Benign renal cysts. Small fat containing ventral hernia. No bowel obstruction, free air, free fluid or abscess. Mild rectosigmoid wall thickening seen. Ileoco lic anastomosis noted in the upper abdomen right upper quadrant region. No evidence of significant l ymphadenopathy. No suspicious bony findings. IMPRESSION: Mild rectosigmoid colitis is suspected. No bowel obstruction.
[2019-07-27 17:42] LABS: Absolute Lymphocytes (CBC) 2.8 K/uL (0.7-4.9); Basophils % 0.5 % (0-1.3); Hematocrit 45.7 % (36.0-45.0); Lymphocytes % 31.4 % (15.3-44.8); MPV 6.6 fL (7.6-11.3); RBC Red Blood Cell Count 4.81 M/uL (3.86-4.86)
--- NOTE | 2019-07-27 18:48 | ER ---
Nurse's Notes [facility] Name: Angela Rodriguez Age: 48 yrs Sex: Female : 1970 Arrival Date: 07/27/2019 Time: 15:26 Bed 5 Private MD: Diagnosis: Colitis Presentation: 07/26 15:37 Chief complaint: Patient states: abdominal pain that began yesterday . Pt reports N/V/D.aa5 15:37 Coronavirus screen: Patient denies fever greater than 100.4F, cough, shortness of aa5 breath, or difficulty breathing. Proceed with normal triage process. Ebola Screen: Patient negative for fever greater than or equal to 101.5 degrees Fahrenheit, and additional compatible Ebola Virus Disease symptoms. Initial Sepsis Screen: Does the patient meet any 2 criteria? No. Patient's initial sepsis screen is negative. Does the patient have a suspected source of infection? No. Patient's initial sepsis screen is negative. Risk Assessment: Do you want to hurt yourself or someone else? Patient reports no desire to harm self or others. 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 - Social history:: Smoking status: Patient reports the use of cigarette tobacco products, smokes one-half pack cigarettes per day. Screenin:53 Abuse screen: Denies threats or abuse. Nutritional screening: No deficits noted. aa5 Tuberculosis screening: No symptoms or risk factors identified. Fall Risk None identified. Assessment: 15:40 General: Appears uncomfortable, Behavior is calm, cooperative. Pain: Complains of pain aa5 in right upper quadrant, left upper quadrant, right lower quadrant and left lower quadrant Pain does not radiate. Pain currently is 10 out of 10 on a pain scale. Quality of pain is described as pinching, Pain began 1 day ago. Is continuous. Neuro: Level of Consciousness is awake, alert, obeys commands, Oriented to person, place, time, situation. Cardiovascular: Heart tones S1 S2 present Rhythm is regular. Respiratory: Airway is patent Respiratory effort is even, unlabored, Respiratory pattern is regular, symmetrical. GI: Abdomen is round non-distended, Bowel sounds present X 4 quads. Abdomen is tender to palpation in right upper quadrant, left upper quadrant, right lower quadrant and left lower quadrant Reports diarrhea, nausea, vomiting. : No signs and/or symptoms were reported regarding the genitourinary system. EENT: No signs and/or symptoms were reported regarding the EENT system. Derm: Skin is pink, warm \T\ dry. Musculoskeletal: Range of motion: intact in all extremities. 16:40 Reassessment: Patient is alert, oriented x 3, equal unlabored respirations, skin aa5 warm/dry/pink. 17:20 Reassessment: Patient is alert, oriented x 3, equal unlabored respirations, skin aa5 warm/dry/pink. Patient states feeling better. 18:00 Reassessment: Stool sample collected and sent to lab . aa5 18:00 Reassessment: Patient is alert, oriented x 3, equal unlabored respirations, skin aa5 warm/dry/pink. 19:15 Reassessment: Patient and/or family updated on plan of care and expected duration. Pain ea level reassessed. Patient is alert, oriented x 3, equal unlabored respirations, skin warm/dry/pink. Discharge instruction given to patient, verbalized the understanding of instruction. Pt left ED ambulatory accompanied by family. Vital Signs: 15:37 BP 111 / 75; Pulse 85; Resp 16 S; Temp 99.1(O); Pulse Ox 96% on R/A; Weight 65.77 kg aa5 (R); Height 5 ft. 2 in. (157.48 cm) (R); Pain 10/10; 16:30 BP 111 / 75; Pulse 79; Resp 16 S; Pulse Ox 96% on R/A; aa5 17:20 BP 96 / 69; Pulse 71; Resp 16 S; Pulse Ox 95% on R/A; aa5 18:20 BP 132 / 80; Pulse 83; Resp 16 S; Pulse Ox 95% on R/A; aa5 15:37 Body Mass Index 26.52 (65.77 kg, 157.48 cm) aa5 ED Course: 15:26 Patient arrived in ED. mr 15:26 Jorge Alberto Jewell PA is PHCP. cp 15:26 Jorge Alberto Cooley MD is Attending Physician. cp 15:37 Arm band placed on. aa5 15:37 Patient has correct armband on for positive identification. Bed in low position. Call aa5 light in reach. Side rails up X2. 15:41 Sergio Pablo NP is PHCP. pm1 15:41 Jorge Alberto Cooley MD is Attending Physician. pm1 15:48 Araceli Syed, ANANYA is Primary Nurse. aa5 15:51 Triage completed. aa5 16:04 Radiology exam delayed due to lab results not completed at this time. (BUN/Creatinine). mw3 16:25 Missed attempt(s): 22 gauge in right forearm. Bleeding controlled, band aid applied, aa5 catheter tip intact. 16:28 PHCP role handed off by Sergio Pablo NP [facility] 16:28 Hal Donis PA is PHCP. [facility] 16:35 Initial lab(s) drawn, by wi, sent to lab. Inserted saline lock: 22 gauge in left upper aa5 arm, using aseptic technique. Blood collected. 17:04 CT completed. Patient tolerated procedure well. Patient moved back from CT. 17:08 CT Abd/Pelvis - IV Contrast Only In Process Unspecified. EDMS 19:14 No provider procedures requiring assistance completed. IV discontinued, intact, ea bleeding controlled, No redness/swelling at site. Pressure dressing applied. Administered Medications: 16:40 Drug: NS 0.9% 1000 ml Route: IV; Rate: 1000 ml; Site: left upper arm; aa5 19:16 Follow up: Response: No adverse reaction; IV Status: Completed infusion; IV Intake: ea 1000ml 16:40 Drug: Zofran (Ondansetron) 4 mg Route: IVP; Site: left upper arm; aa5 16:50 Follow up: Response: No adverse reaction aa5 16:42 Drug: morphine 4 mg Route: IVP; Site: left upper arm; aa5 16:50 Follow up: Response: No adverse reaction aa5 18:05 Drug: morphine 4 mg Route: IVP; Site: left upper arm; aa5 18:24 Follow up: Response: No adverse reaction aa5 Intake: 19:16 IV: 1000ml; Total: 1000ml. ea Outcome: 18:47 Discharge ordered by . tabby 19:14 Discharged to home ambulatory. ea 19:14 Condition: stable 19:14 Discharge instructions given to patient, Instructed on discharge instructions, follow up and referral plans. medication usage, Demonstrated understanding of instructions, follow-up care, medications, Prescriptions given X 4. 19:16 Patient left the ED. ea Signatures: Dispatcher [employer] EDMS Hal Donis PA PA jmm Rivera Roopa mr ClaudioJackie Audri, RN RN aa5 Jorge Alberto Jewell PA PA cp Marinas, Patrick, HOT PLATE PLYWOOD PRESS OFFBEARER HOT PLATE PLYWOOD PRESS OFFBEARER pm1 Shanae Braga RN RN Karishma Lozada mw3
--- NOTE | 2019-07-27 18:48 | EDPHYS ---
Physician Documentation [facility] Name: Angela Rodrigeuz Age: 48 yrs Sex: Female : 1970 Arrival Date: 07/27/2019 Time: 15:26 Bed 5 Private MD: MIRZA Physician Jorge Alberto Cooley HPI: 07/26 16:03 This 48 yrs old Female presents to ER via Ambulatory with complaints of pm1 Abdominal Pain. 16:03 The patient presents with abdominal pain that is diffuse. Onset: The symptoms/episode pm1 began/occurred yesterday. The symptoms do not radiate. Associated signs and symptoms: Pertinent positives: diarrhea, nausea, Pertinent negatives: chest pain, constipation, dysuria, fever, shortness of breath, vomiting. The symptoms are described as achy. Modifying factors: The symptoms are alleviated by nothing, the symptoms are aggravated by nothing. Severity of pain: in the emergency department the pain is actually worse. The patient has been recently seen by a physician: with similar presenting complaints, Seen by her GI about 1 week ago. Had labs and CT performed. 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 - Social history:: Smoking status: Patient reports the use of cigarette tobacco products, smokes one-half pack cigarettes per day. ROS: 16:05 Constitutional: Negative for fever, chills, and weight loss, Cardiovascular: Negative pm1 for chest pain, palpitations, and edema, Respiratory: Negative for shortness of breath, cough, wheezing, and pleuritic chest pain. 16:05 Back: Negative for injury and pain, : Negative for injury, bleeding, discharge, and swelling, MS/Extremity: Negative for injury and deformity, Skin: Negative for injury, rash, and discoloration, Neuro: Negative for headache, weakness, numbness, tingling, and seizure. 16:05 Abdomen/GI: Positive for abdominal pain, nausea, diarrhea, Negative for vomiting, hematemesis, rectal bleeding. Exam: 16:05 Constitutional: This is a well developed, well nourished patient who is awake, alert, pm1 and in no acute distress. Head/Face: Normocephalic, atraumatic. Chest/axilla: Normal chest wall appearance and motion. Nontender with no deformity. No lesions are appreciated. Cardiovascular: Regular rate and rhythm with a normal S1 and S2. No gallops, murmurs, or rubs. Normal PMI, no JVD. No pulse deficits. Respiratory: Lungs have equal breath sounds bilaterally, clear to auscultation and percussion. No rales, rhonchi or wheezes noted. No increased work of breathing, no retractions or nasal flaring. 16:05 Back: No spinal tenderness. No costovertebral tenderness. Full range of motion. Skin: Warm, dry with normal turgor. Normal color with no rashes, no lesions, and no evidence of cellulitis. MS/ Extremity: Pulses equal, no cyanosis. Neurovascular intact. Full, normal range of motion. 16:05 Abdomen/GI: Inspection: abdomen appears normal, Bowel sounds: normal, in all quadrants, Palpation: abdomen is soft and non-tender, in all quadrants, mass, is not appreciated, rebound tenderness, is not appreciated. 16:05 Neuro: Orientation: is normal, Mentation: is normal, Motor: is normal, moves all fours. Vital Signs: 15:37 BP 111 / 75; Pulse 85; Resp 16 S; Temp 99.1(O); Pulse Ox 96% on R/A; Weight 65.77 kg aa5 (R); Height 5 ft. 2 in. (157.48 cm) (R); Pain 10/10; 16:30 BP 111 / 75; Pulse 79; Resp 16 S; Pulse Ox 96% on R/A; aa5 17:20 BP 96 / 69; Pulse 71; Resp 16 S; Pulse Ox 95% on R/A; aa5 18:20 BP 132 / 80; Pulse 83; Resp 16 S; Pulse Ox 95% on R/A; aa5 15:37 Body Mass Index 26.52 (65.77 kg, 157.48 cm) aa5 MDM: 15:42 Patient medically screened. pm1 16:02 Data reviewed: vital signs. Data interpreted: Pulse oximetry: on room air is 96 %. pm1 Interpretation: normal. 16:02 ED course: Patient reports that she discussed her symptoms with her GI MD and was told pm1 to report to the ER and get a CT scan, labs, and stool sample. 18:44 Data reviewed: lab test result(s), radiologic studies. Counseling: I had a detailed [facility] discussion with the patient and/or guardian regarding: the historical points, exam findings, and any diagnostic results supporting the discharge/admit diagnosis, lab results, radiology results, the need for outpatient follow up, to return to the emergency department if symptoms worsen or persist or if there are any questions or concerns that arise at home. ED course: Pain relieved in the ED. Labs WNL. Patient states she is normalyl prescribed medrol dose pack and abx by GI. Unable to contact patient's GI. Patient is given strict return precautions. Patient understood and agrees with the plan of care. . 07/26 15:45 Order name: Basic Metabolic Panel; Complete Time: 17:09 pm1 07/26 15:45 Order name: CBC with Diff; Complete Time: 17:53 pm1 07/26 15:45 Order name: Creatinine for Radiology; Complete Time: 16:50 pm1 07/26 15:45 Order name: Hepatic Function; Complete Time: 17:09 pm1 07/26 15:45 Order name: Lipase; Complete Time: 17:09 pm1 07/26 16:01 Order name: Fecal Leukocyte Stain pm07/26 15:45 Order name: IV Saline Lock; Complete Time: 16:48 pm1 07/26 15:59 Order name: CT Abd/Pelvis - IV Contrast Only; Complete Time: 17:34 pm1 07/26 16:01 Order name: Stool Culture 07/26 15:45 Order name: Labs collected and sent; Complete Time: 16:48 pm1 Administered Medications: 16:40 Drug: NS 0.9% 1000 ml Route: IV; Rate: 1000 ml; Site: left upper arm; aa5 19:16 Follow up: Response: No adverse reaction; IV Status: Completed infusion; IV Intake: ea 1000ml 16:40 Drug: Zofran (Ondansetron) 4 mg Route: IVP; Site: left upper arm; aa5 16:50 Follow up: Response: No adverse reaction aa5 16:42 Drug: morphine 4 mg Route: IVP; Site: left upper arm; aa5 16:50 Follow up: Response: No adverse reaction aa5 18:05 Drug: morphine 4 mg Route: IVP; Site: left upper arm; aa5 18:24 Follow up: Response: No adverse reaction aa5 Disposition: 07/27 13:51 Co-signature as Attending Physician, Jorge Alberto Cooley MD I agree with the assessment and [facility] plan of care. Disposition: 07/27/19 18:47 Discharged to Home. Impression: Colitis. - Condition is Stable. - Discharge Instructions: Colitis. - Prescriptions for Flagyl 500 mg Oral Tablet - take 1 tablet by ORAL route every 6 hours for 10 days; 40 tablet. Medrol (Mitchell) 4 mg Oral Tablets, Dose Pack - take 1 tablet by ORAL route as directed - follow package instructions; 1 packet. Bactrim DS 800- 160 mg Oral Tablet - take 1 tablet by ORAL route every 12 hours for 10 days; 20 tablet. Tylenol- Codeine #3 300-30 mg Oral Tablet - take 1 tablet by ORAL route every 6 hours As needed; 12 tablet. - Medication Reconciliation Form, Thank You Letter, Antibiotic Education, Prescription Opioid Use form. - Follow up: Private Physician; When: 2 - 3 days; Reason: Recheck today's complaints, Continuance of care, Re-evaluation by your physician. Signatures: Dispatcher [employer] EDJorge Alberto Calderon MD MD cha Mickail, Joel, PA PA jmm Calderon, Audri, RN RN aa5 Serigo Pablo, DIOR JOB COACH/JOB DEVELOPER pm1 Shanae Braga RN RN ea Corrections: (The following items were deleted from the chart) 07/26 18:46 18:44 ED course: Pain relieved in the ED. Labs WNL. Patient states she is normalyl tabby prescribed medrol dose pack and abx by GI. Unable to contact patient;s . tabby 19:16 18:47 07/27/2019 18:47 Discharged to Home. Impression: Colitis. Condition is Stable. ea Forms are Medication Reconciliation Form, Thank You Letter, Antibiotic Education, Prescription Opioid Use. Follow up: Private Physician; When: 2 - 3 days; Reason: Recheck today's complaints, Continuance of care, Re-evaluation by your physician. tabby
[2019-07-27 19:51] VITALS: TEMP 99.1
[2019-07-27 19:54] VITALS: O2SAT 95
[2019-07-27 19:56] VITALS: BP 132/80
== END 2019-07-27 19:16 | disposition home or self-care (01) ==
LOC: ER 15:22
DX: K52.9 Noninfective gastroenteritis and colitis, unspecified (principal); F17.210 Nicotine dependence, cigarettes, uncomplicated; Z88.1 Allergy status to other antibiotic agents; Z88.8 Allergy status to other drugs, medicaments and biological substances
CPT/HCPCS: 96361; 87045; 85025; 80048; 36415; 89055; 80076; 87046; 83690; 74177; 96375; 96374; 99284; Q9967; J7030; J2405

== ENCOUNTER 2019-12-01 11:08 | Emergency (ER) | payer OTHER ==
--- OUTSIDE RECORDS SUMMARY | 2019-12-01 11:10 | XMS REPORT | Clinical Summary ---
:1970 Author Organization [facility] Address [address] [place] [address] Care Team Providers Name Role Phone Irving Dai MD Primary Care Provider Allergies Active Allergy Reactions Severity Noted Date Comments Ciprofloxacin Swelling Medium 07/18/2017 Promethazine Other (See Comments) 07/18/2017 Face tw itch Medications Medication Sig Dispensed Refills Start End Date Status Date pantoprazole Take 40 mg by 0 Act mariah (PROTONIX) 40 MG EC mouth daily. tablet methocarbamol Take 500 mg by 0 A ctive (ROBAXIN) 500 MG mouth every 6 tablet (six) hours. clonAZEPAM Take 1 mg by 0 Active (KlonoPIN) 1 MG mouth. tablet acetaminophen-codei Take 1 tablet by 0 Active ne (TYLENOL WITH mouth 2 (two) 9 CODEINE #4) 300-60 times a day. mg per tablet hydrocortisone U REC BID FOR 10 0 Active (ANUSOL-HC) 2.5 % DAYS 9 rectal cream terconazole I 1 APPLICATORFUL 0 Active (TERAZOL 7) 0.4 % VAGINALLY QD FOR 7 9 vaginal cream DAYS ustekinumab Inject 90 mg under 0 Active (STELARA) 90 mg/mL the skin. 9 injection valACYclovir 0 Active (VALTREX) 1000 MG 9 tablet escitalopram TK 1 T PO QAM 0 Act mariah (LEXAPRO) 10 MG 9 tablet gabapentin TAKE ONE(1) 0 Active (NEURONTIN) 300 mg CAPSULE BY MOUTH 9 capsule TWICE DAILY cholecalciferol, Take 2,000 Units 0 Active vitamin D3, by mouth. 9 (VITAMIN D3) 2,000 unit capsule capsule budesonide (UCERIS) Take 9 mg by mouth 0 1 Discontinued 9 mg tablet, daily as needed. 19 delayed & ext.release hydrocortisone 0 02/13/20 Disco ntinued (CORTEF) 20 MG 9 tablet cosyntropin Inject 1 mL (250 0.25 mg 0 02/13/20 E xpired (CORTROSYN) 0.25 mg mcg total) into 01 17 injectionIndication the shoulder, s: Low serum thigh, or buttocks cortisol level once for 1 dose. (HCC) cosyntropin Inject 1 mL (250 0.25 mg 0 02/29/20 E xpired (CORTROSYN) 0.25 mg mcg total) into 01 17 injectionIndication the shoulder, s: Localized thigh, or buttocks osteoporosis once for 1 dose without current pathological fracture, Low serum cortisol level (HCC) Active Problems Problem Noted Date Localized osteoporosis without current pathological fr acture 10/07/2019 Low serum cortisol level 02/13/2019 Abdominal pain 08/19/2017 Small bowel obstruction 08/14/2017 Colitis presumed infectious 07/19/2017 Encounters Date Type Specialty Care Team Description 10/31/2019 Telemedicine Endocrinology Ignacio Conde Localized osteoporosis without current pathological fracture (Primary Dx); MD Nadiya Vitamin D defic iency; Crohn's disease with complication, unspecified gastrointestinal tract location (HCC) 10/28/2019 Infusion Infusion Therapy Localized o steoporosis without current pathological fr acture (Primary Dx) 10/28/2019 Travel 10/21/2019 Telephone Endocrinology Tamia Cornelius MA 10/14/2019 Travel 10/08/2019 Orders Only Infusion Therapy Jeff Pritchard RN 10/07/2019 Orders Only Infusion Therapy Jeff Pritchard RN 10/07/2019 Travel 07/19/2019 Telemedicine Endocrinology Ignacio Conde Localized osteoporosis without current pathological fracture (Primary Dx); MD Nadiya Vitamin D defic iency; Crohn's disease with complication, unspecified gastrointestinal tract location (HCC) 07/11/2019 Travel 05/23/2019 Lab Lab Ignacio Conde Unspecifie d adrenocortical insufficiency (HCC) (Primary Dx); MD Nadiya Low serum corti oliva level (HCC) 05/23/2019 Infusion Infusion Therapy Low serum c ortisol level (HCC) (Primary Dx) 05/22/2019 Orders Only Infusion Therapy Jeff Pritchard RN 05/13/2019 Orders Only Infusion Therapy Jeff Pritchard RN 04/12/2019 Telephone Endocrinology Tamia Cornelius MA 03/14/2019 Telephone Endocrinology Tamia Cornelius MA 03/06/2019 Telephone Endocrinology Tamia Cornelius MA 02/26/2019 Orders Only Endocrinology Tamia Cornelius, Localized osteoporosis without current pathological fracture (Primary Dx); JODY Low serum corti oliva level (HCC) 02/13/2019 Telephone Endocrinology Tamia Cornelius MA 02/13/2019 Orders Only Infusion Therapy Jeff Pritchard RN 02/12/2019 Office Visit Endocrinology Ignacio Conde Low serum cortisol level (HCC) (Primary Dx); MD Nadiya Localized osteo porosis without current pathological fracture; Vitamin D defic iency; Crohn's disease with complication, unspecified gastrointestinal tract location (HCC) 02/11/2019 Telephone Endocrinology Tamia Cornelius MA 12/24/2018 Office Visit Endocrinology Ignacio Conde Low serum cortisol level (HCC) (Primary Dx); MD Nadiya Localized osteo porosis without current pathological fracture; Vitamin D defic iency; Crohn's disease with intestinal obstruction, unspecified gastrointestinal tract location (HCC) after 11/30/2018 Social History Tobacco Use Types Packs/Day Years Used Date Current Every Day Smoker Smokeless Tobacco: Never Used Alcohol Use Drinks/Week oz/Week Comments No Sex Assigned at Date Recorded Female 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 Last Filed Vital Signs Vital Sign Reading Time Taken Comments Blood Pressure 124/86 10/28/2019 1:16 PM CDT Pulse 73 10/28/2019 1:16 PM CDT Temperature 36.1 C (97 F) 10/28/2019 10:50 AM CDT Respiratory Rate 18 10/28/2019 1:16 PM CDT Oxygen Saturation 95% 02/12/2019 11:56 AM CDT Inhaled Oxygen Concentration - - Weight 67.6 kg (149 lb) 02/12/2019 11:56 AM CDT Height 158.8 cm (5' 2.5") 02/12/2019 11:56 AM CDT Body Mass Index 26.82 02/12/2019 11:56 AM CDT Plan of Treatment Health Maintenance Due Date Last Done Comments CERVICAL CANCER SCREENING 09/13/1992 INFLUENZA VACCINE 11/30/2019 Implants Implanted Type Area Lathe Mechanic Device Identifier Shelf Exp iration Model / Date Serial / L ot Pain Pump-07/18/2009 Implanted: 07/18/2009 (Quantity not on file) Procedures Procedure Name Priority Date/Time Associated Diagnosis Comme nts CORTISOL, 30 MINUTES Routine 05/23/2019 Low serum cortisol R 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 ADRENOCORTICOTROPIC Routine 05/23/2019 Low serum cortisol Re sults for HORMONE 2:00 PM CERAMICS TEACHER level (HCC) this procedure Unspecified are in the adrenocortical results insufficiency (HCC) section. CORTISOL, 60 MINUTES Routine 05/23/2019 Low serum cortisol R esults for 11:43 AM CERAMICS TEACHER level (HCC) this procedure Unspecified are in the adrenocortical results insufficiency (HCC) section. VITAMIN D 25 HYDROXY LEVEL Routine 02/06/2019 Localized R esults for 8:04 AM CDT osteoporosis without this pr ocedure current pathological are in the fracture results Vitamin D deficiency section . COMPREHENSIVE METABOLIC Routine 02/06/2019 Localized Resu lts for PANEL 8:04 AM CDT osteoporosis without this pr ocedure current pathological are in the fracture results section. T4, FREE Routine 02/06/2019 Localized Results for 8:04 AM CDT osteoporosis without this pr ocedure current pathological are in the fracture results section. THYROID STIMULATING Routine 02/06/2019 Localized Results for HORMONE 8:04 AM CDT osteoporosis without this pr ocedure current pathological are in the fracture results section. ADRENOCORTICOTROPIC Routine 02/06/2019 Low serum cortisol Re sults for HORMONE 8:04 AM CDT level (HCC) this procedure are in the results section. CORTISOL LEVEL, AM Routine 02/06/2019 Low serum cortisol Res ults for 8:04 AM CDT level (HCC) this procedure are in the results section. VITAMIN D 25 HYDROXY LEVEL Routine 02/04/2019 R esults for 12:00 AM CDT this procedure are in the results section. CORTISOL LEVEL, AM Routine 02/04/2019 Results f or 12:00 AM CDT this procedure are in the results section. THYROID STIMULATING Routine 02/04/2019 Results for HORMONE 12:00 AM CDT this procedure are in the results section. T4, FREE Routine 02/04/2019 Results for 12:00 AM CDT this procedure are in the results section. ADRENOCORTICOTROPIC Routine 02/04/2019 Results for HORMONE 12:00 AM CDT this procedure are in the results section. COMPREHENSIVE METABOLIC Routine 02/04/2019 Resu lts for PANEL 12:00 AM CDT this procedure are in the results section. after 11/30/2018 Results Cortisol, 30 minutes (05/23/2019 3:20 PM CERAMICS TEACHER) Cortisol, 30 min 2 ug/dL [facility] Comment: HOSPITAL Normal response to 0.25 mg 1-24 ACTH (cosyntropin) is a peak cortisol concentration of greater than 14 ug/dL at eit her 30 minutes or 60 minutes post-stimulation. Specimen Plasma specimen Performing Organization Address [facility] Phone Number [facility] DEPARTMENT OF PATHOLOGY AND [address] [place] [address] [phone] [address] Adrenocorticotropic hormone (05/23/2019 2:00 PM CERAMICS TEACHER)Only the most recent of3 resultswithin the time period is included. Adrenocorticotropic hormone 6.7 (L) 7.2 - 63.3 PASTOR METHO DIST pg/mL HOSPITAL Specimen Blood Performing Organization Address [facility] Phone Number [facility] DEPARTMENT OF PATHOLOGY AND [address] [place] [address] [phone] [address] Cortisol, 60 minutes (05/23/2019 11:43 AM CERAMICS TEACHER) Cortisol, 60 Min 21 ug/dL [facility] Comment: HOSPITAL Normal response to 0.25 mg 1-24 ACTH (cosyntropin) is a peak cortisol concentration of greater than 14 ug/dL at eit her 30 minutes or 60 minutes post-stimulation. Specimen Plasma specimen Performing Organization Address City/[facility] Phone Number [facility] DEPARTMENT OF PATHOLOGY AND [address] [place], [place] [phone] [facility] [address] [place] [address] Cortisol level, AM (02/06/2019 8:04 AM CDT)Only the most recent of2 results within the time period is included. Pathologist Sig nature Cortisol, AM 3.9 (L) mcg/dL [facility] Comment: [place] Reference Range 8 a.m. (7-9 a.m.) Specimen: 4.0-22.0 Specimen Blood Narrative Performed At FASTING: [facility]KNOWN [facility]ing [facility] Comment Performing Organization Information: Site ID: [id number] Name: [facility] Address: [address] [place] [phone] Director: Thor Zamorano Performing Organization Address City/State/Zipcode Phone Number [employer] [place] [phone] Vitamin D 25 hydroxy level (02/06/2019 8:04 AM CDT)Only the most recent of2 resultswithin the time period is included. Vitamin D, 45 30 - 100 [facility] 25-hydroxy Comment: ng/mL [place] Vitamin D Status 25-OH Vitamin D: Deficiency: <20 ng/mL Insufficiency: 20 - 29 ng/mL Optimal: > or = 30 ng/mL For 25-OH Vitamin D testing on patients on D2-supplementation and patients for whom quantitation of D2 and D3 fractions is required, the [facility](T M) 25-OH VIT D, (D2,D3), LC/MS/MS is recommended: order code 75279 (patients >2yrs). For more information on this test, go to: http://education.[employer]ance/faq/PVW371 (This link is being provided for informational/educational purposes only.) NO COLLECTION DATE RECEIVED. WE HAVE USED THE DATE THE SPECIMEN WAS RECEIVED BY THIS LABORATORY THE COLLECTION DATE. IF THIS IS INCORRECT, PLEASE CONTACT CLIENT SERVICES. PHONE NUMBER: [phone] Specimen Blood Narrative Performed At FASTING: [facility]KNOWN [facility] Comment Performing Organization Information: Site ID: [id number] Name: [facility] Address: [address] [place] [phone] Director: Thor Zamorano Performing Organization Address [facility] [place] [address] Thyroid stimulating hormone (02/06/2019 8:04 AM CDT)Only the most recent of2 resultswithin the time period is included. Pathologist Sig nature TSH 3.02 mIU/L [facility] Comment: [place] Reference Range > or = 20 Years 0.40-4.50 Ranges First trimester 0.26-2.66 Second trimester 0.55-2.73 Third trimester 0.43-2.91 Specimen Blood Narrative Performed At FASTING: [facility]KNOWN [facility] Comment Performing Organization Information: Site ID: [id number] Name: [facility] Address: [address] [place] [phone] Director: Thor Zamorano Performing Organization Address [facility] [place] [address] T4, free (02/06/2019 8:04 AM CDT)Only the most recent of2 resultswithin the time period is included. Pathologist Sig nature T4, free 1.0 0.8 - 1.8 ng/dL [employer] [facility] [place] Specimen Blood Narrative Performed At FASTING: [facility]KNOWN [facility] Comment Performing Organization Information: Site ID: [id number] Name: [facility] Address: [address] [place] [phone] Director: Thor Zamorano Performing Organization Address [facility] [place] [address] Comprehensive metabolic panel (02/06/2019 8:04 AM CDT)Only the most recent of2 resultswithin the time period is included. Glucose 94 65 - 99 [facility] Comment: mg/dL [place] Fasting reference interval BUN 11 7 - 25 mg/dL [facility] [place] Creatinine 0.95 0.50 - 1.10 [facility] mg/dL [place] EGFR Non-Afr. 71 > OR = 60 [facility] Tongan mL/min/1.73m [place] 2 EGFR 83 > OR = 60 [facility] Tongan mL/min/1.73m [place] 2 BUN/creatinine NOT APPLICABLE 6 - 22 [facility] ratio (calc) [place] Sodium 138 135 - 146 [facility] mmol/L [place] Potassium 4.0 3.5 - 5.3 [facility] mmol/L [place] Chloride 105 98 - 110 [facility] mmol/L [place] CO2 20 20 - 32 [facility] mmol/L [place] Calcium 9.5 8.6 - 10.2 [facility] mg/dL [place] Protein 6.5 6.1 - 8.1 [facility] g/dL [place] Albumin, S 3.9 3.6 - 5.1 [facility] g/dL [place] Globulin, total 2.6 1.9 - 3.7 [facility] g/dL (calc) [place] Albumin/globulin 1.5 1.0 - 2.5 [facility] ratio (calc) [place] Total bilirubin 0.3 0.2 - 1.2 [facility] mg/dL [place] Alkaline 96 33 - 115 U/L [facility] phosphatase [place] AST 17 10 - 35 U/L [facility] [place] ALT 10 6 - 29 U/L [facility] [place] Specimen Blood Narrative Performed At FASTING: [facility]KNOWN [facility] Comment Performing Organization Information: Site ID: [id number]: [facility] Address: [address] [place] [address] Director: Thor Zamorano Performing Organization Address City/State[facility] Phone Number J[facility] [employer] [place] [address] [place] [address] after 11/30/2018 Insurance Payer Benefit Plan / Subscriber ID Effective Dates Phone Addre ss Type Group HUMANA MEDICARE HUMANA MEDICARE xxxxxxxxx 2019-Present PPO PPO/PFFS/ERS [facility] MEDICAID MEDICAID xxxxxxxxx 2017-Present Med icaid
--- OUTSIDE RECORDS SUMMARY | 2019-12-01 11:10 | XMS REPORT | Clinical Summary ---
:1970 Author Organization [facility] Address [address] [place] [address] Care Team Providers Name Role Phone Irving Dai Primary Care Provider Allergies Active Allergy Reactions Severity Noted Date Comments Ciprofloxacin Swelling, Anaphylaxis, High 10/25/2011 Make s tongue swell Hives Morphine Other (See Comments) Low 08/17/2018 Patient said does not work for her. Promethazine Other (See Comments) Medium 07/06/2018 Makes m outh/jaw twitch/jerk Promethazine Hcl Anaphylaxis, Other (See High 10/25/2011 Muscle twiching Comments) Medications Medication Sig Dispensed Refills Start Date End Date Status escitalopram oxalate Take 10 mg by mouth 0 Active (LEXAPRO) 10 MG daily. tabletIndications: posttraumatic stress syndrome mesalamine (LIALDA) Take 2,400 mg by 0 Active 1.2 gram EC mouth daily with tabletIndications: breakfast. Crohn's disease clonazePAM Take 1 mg by mouth 0 Active (KLONOPIN) 1 MG 4 (four) times tabletIndications: daily . PTSD multivitamin,tx-iron Take 1 tablet by 0 Active -minerals Tab mouth daily. terconazole (TERAZOL Place 1 applicator 0 Active 7) 0.4 % vaginal vaginally nightly. cream STELARA 90 mg/mL INJECT 90MG 3 04/11/2018 Active Syrg SUBCUTANEOUSLY 8 WEEKS AFTER INNDUCTION DOSE THEN EVERY 8 WEEKS THEREAFTER gabapentin Take 1 capsule (300 90 capsule 0 08/23/2018 02 (NEURONTIN) 300 MG mg total) by mouth 0 capsule 3 (three) times daily. hydrocortisone Take 1 tablet (20 30 tablet 0 11/16/2018 (CORTEF) 20 MG mg total) by mouth 9 tablet daily for 30 days. hydrocortisone Take 2 tablets (40 60 tablet 0 11/17/201812/17 (CORTEF) 20 MG mg total) by mouth 9 tablet every morning for 30 days. Lactobacillus Take 1 tablet by 60 tablet 0 11/16/2018 12/17/19 1 acidoph-L.bulgar mouth 2 (two) times 9 (FLORANEX) 1 million daily for 30 days. cell Tab per tablet pantoprazole Take 1 tablet (40 30 tablet 3 11/16/2018 12/17/19 1 (PROTONIX) 40 MG mg total) by mouth 9 tabletIndications: daily for 30 days. heartburn, chronic indigestion Active Problems Problem Noted Date Abdominal pain 11/06/2018 Bilateral lower abdominal pain 07/21/2018 Crohn's disease 07/06/2018 SBO (small bowel obstruction) 07/06/2018 Encounters Date Type Specialty Care Team Description 06/19/2019 Hospital Encounter Computed Ani Zelaya's d isease with Tomography MD Arnaldo complication, 1, [facility] unspecified [address] Room gastrointesti nal tract location (HCC) 06/12/2019 Outside Orders Central Scheduling Ani Zelaya's disease with MD Arnaldo complication, unspecified gastrointestina l tract location (HCC) (Primary Dx) after 11/30/2018 Family History Medical History Relation Name Comments [...] six or more drinks on one occasion? No t asked Sex Assigned at Date Recorded Not on file Job Start 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 location (HCC) after 11/30/[address] Abdomen/Pelvis with IV Contrast (06/19/2019 9:15 AM SULFONATION EQUIPMENT OPERATOR) Specimen Narrative Performed At FINAL REPORT [employer] CT of the abdomen and pelvis, with contr ast Clinical History:Crohn's disease wit h complication, unspecified gastrointestinal tract location Technique: CT of the abdomen and pelvis is performed with intravenous contrast administration.This exam wa s performed according to our departmental dose optimization program w hich includes automated exposure control, adjustment of the mA a nd/or kV according to patient's size and/or use of iterative r econstructive technique. Comparison Film:November 07, 2018 Discussion: Visualized lower thorax is unremarkable. Liver appears mildly fatty. No liver les ion is identified. No biliary ductal dilatation, status post cholecyst ectomy. The spleen, pancreas, and adrenal glands are normal. There are small renal cysts, a dominant hypodensity on t he left contains punctate calcification peripherally, and measures 3.6 cm, without interval change; it does not measure simple fluid density and probably reflects associated with proteinaceous c ontent. No hydronephrosis, suspicious mass lesion, or radiopaque st one. There is liquid content in colon which m ay reflect diarrhea. Status post right hemicolectomy with ileocolic anastomosis. Previously seen inflammation/scarring adjacent to the an astomosis has significantly decreased. There is suspected mild segme ntal wall thickening in the descending and sigmoid colon. Small john l appears unremarkable. There is no fistula, or abscess identified. No significant mesenteric, or pericolonic edema. In the pelvis, bladder is normal. Uterus is absent. No adnexal mass. There is no ascites, free air, or lympha denopathy. Osseous structures demonstrate degenerative change. A mild wedge-shaped deformity of L2 vertebral body is chronic. There is a ri ght-sided implanted spinal stimulator device. Impression: Previously seen inflammatory change pablito cent to the ileocolic anastomosis has significantly decreased. No abscess or fistula is identified. Question segmental mild wall thickening in the descending and sigmoid colon. Stable left renal hypodensity that does not measure simple fluid density, probably reflecting proteinaceo us content, consider correlation with ultrasound. Mild hepatic steatosis. Status post hysterectomy. Signed: Chelsey Billings MD Report Verified Date/Time:06/19/2019 10:26:36 Reading Location: [facility] [id number] [facility] Reading Room Procedure Note Interface, External Ris In - 06/19/2019 10:28 AM SULFONATION EQUIPMENT OPERATOR FINAL REPORT CT of the abdomen and pelvis, with contr ast Clinical History: Crohn's disease with complication, unspecified gastrointestinal tract location Technique: CT of the abdomen and pelvis is performed with intravenous contrast administration. This exam was performed according to our departmental dose optimization program w hich includes automated exposure control, adjustment of the mA a nd/or kV according to patient's size and/or use of iterative r econstructive technique. Comparison Film: November 07, 2018 Discussion: Visualized lower thorax is unremarkable. Liver appears mildly fatty. No liver les ion is identified. No biliary ductal dilatation, status post cholecyst ectomy. The spleen, pancreas, and adrenal glands are normal. There are small renal cysts, a dominant hypodensity on t he left contains punctate calcification peripherally, and measures 3.6 cm, without interval change; it does not measure simple fluid density and probably reflects associated with proteinaceous c ontent. No hydronephrosis, suspicious mass lesion, or radiopaque st one. There is liquid content in colon which m ay reflect diarrhea. Status post right hemicolectomy with ileocolic anastomosis. Previously seen inflammation/scarring adjacent to the an astomosis has significantly decreased. There is suspected mild segme ntal wall thickening in the descending and sigmoid colon. Small john l appears unremarkable. There is no fistula, or abscess identified. No significant mesenteric, or pericolonic edema. In the pelvis, bladder is normal. Uterus is absent. No adnexal mass. There is no ascites, free air, or lympha denopathy. Osseous structures demonstrate degenerative change. A mild wedge-shaped deformity of L2 vertebral body is chronic. There is a ri ght-sided implanted spinal stimulator device. Impression: Previously seen inflammatory change pablito cent to the ileocolic anastomosis has significantly decreased. No abscess or fistula is identified. Question segmental mild wall thickening in the descending and sigmoid colon. Stable left renal hypodensity that does not measure simple fluid density, probably reflecting proteinaceo us content, consider correlation with ultrasound. Mild hepatic steatosis. Status post hysterectomy. Signed: Chelsey Billings MD Report Verified Date/Time: 06/19/2019 1 0:26:36 Reading Location: [facility] [id number] [facility] Reading Room Performing Organization Address City/State/Zipcode Phone Number GE RIS after 11/30/2018 Insurance Payer Benefit Plan / Group Subscriber ID Type Phone A ddress HUMANA - MEDICARE MGD HUMANA MEDICARE ADV xxxxxxxxx Maps Contracted CARE DIAZ MEDICAID MEDICAID DIAZ xxxxxxxxx (Home) [address], [place] (Work) [phone] Advance Directives For more information, please contact:[place] [id number] [place], [place] [phone] Code Status Date Activated Date Inactivated Comments [...]
--- OUTSIDE RECORDS SUMMARY | 2019-12-01 11:16 | XMS REPORT | Summary of Care ---
:1970 Author Organization [facility] Address [address] [place] [address] Care Team Providers Name Role Phone KarenElva Primary Care Provider Reason for Visit Reason Comments New Patient Left Knee Pain Encounter Details Date Type Department Care Team Description 11/07/2019 Office Visit [facility] Orthopaedic Ryan Maldonado ffusion, left knee Surgery- Veronique Medrano MD (Primary Dx) [address], [address] [place] [address] [place] [address] [place], [place] [phone] Allergies Active Allergy Reactions Severity Noted Date Comments Ciprofloxacin Anaphylaxis High 11/09/2017 Promethazine Hcl Anaphylaxis High 11/09/2017 documented as of this encounter (statuses as of 11/07/2019) Medications Medication Sig Dispensed Refills Start End Status Date Date mesalamine (LIALDA) 1.2 Take 2,400 mg by mouth 0 Active gram EC tablet daily with breakfast. pantoprazole 40 mg EC Take 40 mg by mouth 0 Active tablet daily. clonazePAM 1 mg tablet Take 1 mg by mouth 3 0 Active (three) times daily. metroNIDAZOLE (FLAGYL) Take 500 mg by mouth 2 0 Active 500 mg tablet (two) times daily. multivitamin, Take 1 tablet by mouth 0 Active tx-minerals (COMPLETE daily. MULTIVITAMIN) tablet ranitidine 150 mg 0 Ac tive capsule sertraline HCl Take by mouth. 0 Active (SERTRALINE ORAL) baclofen 10 mg tablet baclofen 10 mg tablet 0 Active busPIRone 10 mg tablet Take 10 mg by mouth. 0 Active escitalopram oxalate 10 escitalopram 10 mg 0 0 Active mg tablet tablet 19 gabapentin 300 mg gabapentin 300 mg 0 08/24/19 Active capsule capsule 19 hydroCHLOROthiazide 25 hydrochlorothiazide 25 0 Active mg tablet mg tablet hydrocortisone 20 mg Take 20 mg by mouth. 0 Active tablet montelukast 10 mg montelukast 10 mg 0 Active tablet tablet QUEtiapine 50 mg tablet quetiapine 50 mg 0 Active tablet terbinafine HCl 250 mg TK 1 T PO QD 0 10/23/19 Active tablet 20 Ustekinumab (STELARA) Stelara 90 mg/mL 0 04/11/20 Active 90 mg/mL SC injection subcutaneous syringe 18 valACYclovir 1 gram 0 11/17/19 Active tablet 19 methylPREDNISolone Take 21 tablets by 1 Each 0 11/07/19 Active (MEDROL, CHERISE,) 4 mg mouth 20 tabletsIndications: SEE-INSTRUCTIONS. Effusion, left knee follow package directions documented as of this encounter (statuses as of 11/07/2019) Active Problems No known active problemsdocumented as of this encounter (statuses as of 11/07/2019) Social History Tobacco Use Types Packs/Day Years Used Date Current Every Day Smoker Cigarettes 0.5 Smokeless Tobacco: Never Used Comments: uses e cigarette, and nicotine patches. Alcohol Use Drinks/Week oz/Week Comments No Sex Assigned at Date Recorded Not on file Job Start 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 COVID-19 Exposure Response Date Recorded In the last month, have you been in contact with No / Unsure 11/07/2019 9:07 AM CDT someone who was confirmed or suspected to have Coronavirus / COVID-19? documented as of this encounter Last Filed Vital Signs Vital Sign Reading Time Taken Comments Blood Pressure 98/63 11/07/2019 9:12 AM CDT Pulse 83 11/07/2019 9:12 AM CDT Temperature - - Respiratory Rate - - Oxygen Saturation - - Inhaled Oxygen Concentration - - Weight 65.8 kg (145 lb) 11/07/2019 9:12 AM CDT Height 158.8 cm (5' 2.5") 11/07/2019 9:12 AM CDT Body Mass Index 26.1 11/07/2019 9:12 AM CDT documented in this encounter Progress Notes Finn Joyner, PAC - 11/07/2019 9:00 AM CDT Cc: Chief Complaint Patient presents with New Patient Left Knee Pain Patient here for left knee pain - states she had edema on the 14 of October and has been nwb by usingcrutches. Painful when applying weight to her knee. Denies injury. Arrived in wheelchair. No films. Currently on pain management for Chron's Disease. Has morphine pump. This does not help with other body ailments. Zainab Alarcon 11/07/2019 9:21 AM Angela Rodriguez is a 49 year old female. Left knee pain She had edema in both of her feet on the first is having left knee pain and swelling at 10/30/2019 it is not resolving, she has been using crutches for mobility. Due to Crohn's disease she can't take anti-inflammatory she did try naproxen for one week. Did not get relief from naproxen sodium. Her pain is 10 over 10 in intensity. Shooting quality like being hit with a hammer. She is trying to quitsmoking she has a nicotine patch today. He had x-rays done in [place] verbally they told her that the x-rays were negative third by Dr. Fernandez and she had a ultrasound of her lower extremity for blood clot which was negative. Allergies Angela is allergic to ciprofloxacin and phenergan [promethazine hcl]. Medications Outpatient Medications Prior to Visit Medication Sig Dispense Refill escitalopram oxalate 10 mg tablet escitalopram 10 mg tablet gabapentin 300 mg capsule gabapentin 300 mg capsule Ustekinumab (STELARA) 90 mg/mL SC injection Stelara 90 mg/mL subcutaneous syringe valACYclovir 1 gram tablet clonazePAM 1 mg tablet Take 1 mg by mouth 3 (three) times daily. multivitamin, tx-minerals (COMPLETE MULTIVITAMIN) tablet Take 1 tablet by mouth daily. pantoprazole 40 mg EC tablet Take 40 mg by mouth daily. baclofen 10 mg tablet baclofen 10 mg tablet busPIRone 10 mg tablet Take 10 mg by mouth. hydroCHLOROthiazide 25 mg tablet hydrochlorothiazide 25 mg tablet hydrocortisone 20 mg tablet Take 20 mg by mouth. montelukast 10 mg tablet montelukast 10 mg tablet QUEtiapine 50 mg tablet quetiapine 50 mg tablet ranitidine 150 mg capsule sertraline HCl (SERTRALINE ORAL) Take by mouth. terbinafine HCl 250 mg tablet TK 1 T PO QD mesalamine (LIALDA) 1.2 gram EC tablet Take 2,400 mg by mouth daily with breakfast. metroNIDAZOLE (FLAGYL) 500 mg tablet Take 500 mg by mouth 2 (two) times daily. No facility-administered medications prior to visit. Histories Past Medical History: Diagnosis Date Anesthesia complication Hard to put to sleep and hard to wake up Anxiety Crohn's disease Past Surgical History: Procedure Laterality Date BOWEL RESECTION INTRATHECAL INFUSION PUMP REVISION N/A 11/20/2017 Surgeon: Meliton Mock MD; Location: [facility] Social History Socioeconomic History Marital status: Single Spouse name: Not on file Number of children: Not on file Years of education: Not on file Highest education level: Not on file Occupational History Not on file Social Needs Financial resource strain: Not on file Food insecurity: Worry: Not on file Inability: Not on file Transportation needs: Medical: Not on file Non-medical: Not on file Tobacco Use Smoking status: Current Every Day Smoker Packs/day: 0.50 Types: Cigarettes Smokeless tobacco: Never Used Tobacco comment: uses e cigarette, and nicotine patches. Substance and Sexual Activity Alcohol use: No Drug use: No Sexual activity: Not on file Lifestyle Physical activity: Days per week: Not on file Minutes per session: Not on file Stress: Not on file Relationships Social connections: Talks on phone: Not on file Gets together: Not on file Attends roman catholic service: Not on file Active member of club or organization: Not on file Attends meetings of clubs or organizations: Not on file Relationship status: Not on file Intimate partner violence: Fear of current or ex partner: Not on file Emotionally abused: Not on file Physically abused: Not on file Forced sexual activity: Not on file Other Topics Concern Not on file Social History Narrative Not on file No family history on file. Review of Systems Constitutional: Positive for activity change. HENT: Negative. Eyes: Negative. Respiratory: Negative. Cardiovascular: Negative. Gastrointestinal: Negative. Genitourinary: Negative. Musculoskeletal: Positive for arthralgias, back pain, gait problem, joint swelling and myalgias. Skin: Negative. Psychiatric/Behavioral: Negative. Endocrine: Endocrine negative Vital Signs BP 98/63 | Pulse 83 | Ht 62.5" (158.8 cm) | Wt 65.8 kg (145 lb) | BMI 26.10 kg/m Physical Exam Musculoskeletal: Left knee: She exhibits effusion. Physical Exam Constitutional: oriented to person, place, and time. appears well-developed and well-nourished. HENT: Head: Normocephalic and atraumatic. Right Ear: External ear normal. Left Ear: External ear normal. Eyes: Conjunctivae are normal. Neck: Normal range of motion. No strabismus Neck supple. Cardiovascular: Normal rate and regular rhythm. Pulmonary/Chest: Normal respiratory rate equal chest rise and fall in no apparent distress Abdominal: Abdomen nondistended nontender Neurological: alert and oriented to person, place, and time. No asymmetry Skin: Skin is warm and dry. Psychiatric: normal mood and affect. behavior is normal. Judgment and thought content normal. Nursing note and vitals reviewed. Left knee she has a small to moderate effusion she has stable ligamentous exam with varus valgus stress anterior posterior drawer for the anterior cruciate ligament PCL MCL and LCL she's got a negativeMcMurray test for meniscal pathology her discomfort is primarily in her calf Assessment/Plan 1. Effusion, left knee He has an acute effusion I suspect this is related to a gout attack. We will give her a Medrol Dosepak and compression with an Magen wrap. documented in this encounter Plan of Treatment Health Maintenance Due Date Last Done Comments PNEUMOCOCCAL 0-64 YEARS COMBINED SERIES (1 of 1 - 09/13/1977 PPSV23) DTaP,Tdap,and Td Vaccines (1 - Tdap) 09/13/1982 PAP SMEAR 09/13/1992 Breast Cancer Screening (MAMMOGRAM) 2011 INFLUENZA VACCINE (#1) 2019 Depression Screening 11/06/2020 11/07/2019 documented as of this encounter Implants Implanted Type Area Cashiers Supervisor Device Shelf Model / Identifier Expiration Date Ser ial / Lot Pump, Medtronic Synchromed Ii Infusion W ith Filter (20 Ml) #8637-20 - [id number] Pump N/A: Abdomen Medtronic 02/11/2019 8637-20 / Implanted: Qty: 1 on 11/20/2017 by Meliton Ni MD at [facility] N [id number] / [id number] documented as of this encounter Results Not on filedocumented in this encounter Visit Diagnoses Diagnosis Effusion, left knee - Primary documented in this encounter Insurance Payer Benefit Plan Subscriber ID Effective Phone Address Typ e / Group Dates [employer] - CHOICE CARE [id number] 2019-Pres Medi care Adv MANAGED ent PPO MEDICARE [facility] MEDICAID OF xxxxxxxxx 2017-Pre [phone] Medi caid [place] sent [id number] [place] [address] documented as of this encounter
--- OUTSIDE RECORDS SUMMARY | 2019-12-01 11:16 | XMS REPORT | Encounter Summary ---
:1970 Author Reason for Visit Psychiatric Follow Up Instructions 1. Generalized anxiety disorder buspirone 15 mg tablet Lexapro 10 mg tablet 2. Panic disorder without agorap hobia clonazepam 1 mg tablet Discussion Note Advised to call if any problems or issues. Patient educational handouts: No information available. Plan of Care Patient Instructions Continue current treatment. RTC 3-m onths or sooner if necessary. Reminders Provider Appointments Est 12/09/2019 [facility] Psychiatry 10:30AM Jer Wang MD Est on or around [facility] 12/10/2019 Jer Wang MD Lab None recorded. Referral None recorded. Procedures None recorded. Surgeries None recorded. Imaging None recorded. Medications Name Start Date acetaminophen 300 mg-codeine 30 mg tablet acetaminophen 300 mg-codeine 60 mg tablet alprazolam 1 mg tablet alprazolam 2 mg tablet amoxicillin 500 mg capsule amoxicillin 875 mg-potassium clavulanate 125 mg tablet baclofen 10 mg tablet buspirone 15 mg tablet Take [...] every day by oral route in the morning . methylprednisolone 4 mg tablets in a dose pack metoclopramide 10 mg tablet metronidazole 500 mg tablet montelukast 10 mg tablet nitrofurantoin monohydrate/macrocrystals 100 mg capsul e nystatin 100,000 unit/gram topical cream nystatin 100,000 unit/mL oral suspension oxycodone 10 mg tablet pantoprazole 40 mg tablet,delayed release Take 1 tablet every day by oral route. prednisone 10 mg tablet prednisone 20 mg tablet prednisone 5 mg tablet Proctozone-HC 2.5 % topical cream perineal applicator quetiapine 50 mg tablet Take 1 tablet every day by oral route at bedtime. Stelara 130 mg/26 mL intravenous solution Stelara 90 mg/mL subcutaneous syringe sucralfate 1 gram tablet sulfamethoxazole 800 mg-trimethoprim 160 mg tablet Take 1 tablet every 12 hours by oral route for 3 days . Suprep Bowel Prep Kit 17.5 gram-3.13 gram-1.6 gram ora l solution terconazole 0.4 % vaginal cream tramadol 50 mg tablet triamcinolone acetonide 0.5 % topical ointment valacyclovir 1 gram tablet Medications Administered None recorded. Vitals None recorded. Results Lab Results None recorded. Allergies Code Code System Name Reaction Severity Status Onset 709340 RxNorm Remeron Other Active 11/27/2017 890735 RxNorm Cipro Active 440226 RxNorm Phenergan Active 81974 RxNorm Trazodone Hives Active Problems Name Status Onset Date Source Anxiety Disorder Active 10/23/2017 Endometriosis (Clinical) Active 10/23/2017 Panic Disorder without Agoraphobia Active Generalized Anxiety Disorder Active Procedures Date Name Performed by Caesarean Section Information not avai lable Total Hysterectomy Information not avai lable Vaccine List None recorded. Social History Tobacco Smoking Status Heavy Tobacco Smoker (1 PPD) Past Encounters 09/09/2019 Generalized Anxiety Disorder; Panic Diso rder without Agoraphobia Vj Wang MD: [address], [place] [address], Ph. [phone] History of Present Illness Psych Medication Management Reported By: Patient HPI: Medications: taking medicati ons as directed, no side effects from medication. General overall feeling: feeling as well as can be expected Psychiatric General Follow-U p Reported By: Patient HPI: Context: no relationship str ess, good family dynamics Associated Symptoms: Mood: no sadness. Anxiety: n o generalized worry. Sleep: no insomnia. Appetite: no ch markus Prior Treatment and Review:: Medication Compliance: gr eater than 90% Note: <p>Was seen through Teams for med. check. Had flare up of her Crohn's and had to be treated. Feeling okay now. Compliant with meds. No AE. Sleeping okay at night. Appetite stable. E/C okay. Mood has been fairly stable. No new health issues. No acute psychosocial stressors. Home life unchanged. Denies ETOH/drugs. No legal issues.</p> Review of Systems None recorded. Physical Exam Mental Status Exam Reported By: Patient Mental Status Exam: Appearance: well-groomed, cl j carlos. Behavior: eye contact, cooperative. Speech: clear. Perception: no hallucinations. Cognition: alert, oriented t o situation, oriented to time, oriented to place, oriented to person, memory intact. Intelligence: average. Memor y: remote, recent. Mood: euthymic. Affect: congruent to thought content. Insight: intact. Judgment: intact. Thought Processes: i ntact. Thought Content: unremarkable
--- OUTSIDE RECORDS SUMMARY | 2019-12-01 11:16 | XMS REPORT | Summary of Care ---
:1970 Author Organization [facility] Address [address] [place] [address] Care Team Providers Name Role Phone KarenElva Primary Care Provider Reason for Visit Reason Comments New Patient Left Knee Pain Encounter Details Date Type Department Care Team Description 11/07/2019 Office Visit [facility] Orthopaedic Ryan Maldonado ffusion, left knee Surgery- Veronique Medrano MD (Primary Dx) [address], [address] [place] [address] [place] [address] [place], [place] [phone] Allergies Active Allergy Reactions Severity Noted Date [...] patch today. He had x-rays done in [place] verbally they told her that the x-rays [...] N/A 11/20/2017 Surgeon: Meliton Mock MD; Location: [facility] [place] Social History Socioeconomic History Marital status: Single [...] file Gets together: Not on file Attends quaker service: Not on file Active member of [...] of this encounter Implants Implanted Type Area Route Salesman Device Shelf Model / Identifier Expiration Date Ser ial / Lot Pump, Medtronic Synchromed Ii Infusion W ith Filter (20 Ml) #8637-20 - [id number] Pump N/A: Abdomen Medtronic 02/11/2019 8637-20 / Implanted: Qty: 1 on 11/20/2017 by Meliton Ni MD at [facility] N [id number] / [id number] documented as of this encounter Results Not on filedocumented in this encounter Visit Diagnoses Diagnosis Effusion, left knee - Primary documented in this encounter Insurance Payer Benefit Plan Subscriber ID Effective Phone Address Typ e / Group Dates [employer]NA - CHOICE CARE [id number] 2019-Pres Medi care Adv MANAGED ent PPO MEDICARE [facility] MEDICAID OF xxxxxxxxx 2017-Pre [phone] Medi caid [place] sent [phone] [place] [address] documented as of this encounter
--- OUTSIDE RECORDS SUMMARY | 2019-12-01 11:16 | XMS REPORT | Continuity of Care Document ---
:1970 Author Organization [facility] t Address [address] [place] [address] Care Team Providers Name Role Phone Irving Dai Primary Care Physician DR SHAILESH Attending Clinician Unavailable Erica MOTLEY L Attending Clinician Amaya MOTLEY, H. Attending Clinician Adryan VERA Attending Clinician Unavailable Francheska HARE Attending Clinician Unavailable Zuri Dalal MD Attending Clinician Garcia MOTLEY Attending Clinician [address] [place] [address] Room Attending Clinician Unavailable Javon MOTLEY Attending Clinician Garcia MOTLEY Attending Clinician Laney Daniels MD Attending Clinician GABRIELA GAY Attending Clinician Unavailable JAVON Attending Clinician Unavailable Jocelyn DICKINSON Attending Clinician Unavailable MARY MANCINI Attending Clinician Unavailable ALEJANDRO, - Attending Clinician Unavailable MOOK Attending Clinician Unavailable DR SHAILESH Admitting Clinician Unavailable GABRIELA GAY Admitting Clinician Unavailable JAVON Admitting Clinician Unavailable Laney GARCIA Admitting Clinician Unavailable SHAMSEE, ALEJANDRO-AHMED Admitting Clinician Unavailable AHMED, - Admitting Clinician Unavailable OEI Admitting Clinician Unavailable Payers Payer Name Policy Type Policy Number Effective Expiration Source Date Date HUMANA MEDICAREHUMANA xxxxxxxxx 2019 Jeremiah long MEDICARE PPO/PFFS/ERS 00:00:00 Met letitia [id number] MEDICAIDMEDICAIDxxxxx xxxxxxxxx 2017 Jeremiah long [id number] 00:00:00 Met letitia yang HUMANA - MEDICARE MGD xxxxxxxxx [facility] CAREHUMANA MEDICARE - Med ical ADVxxxxxxxxxMaps Center Contracted DIAZ xxxxxxxxx [facility] MEDICAIDMEDICAID - Medica l MOLINAxxxxxxxxx Center Problems Condition Condition Condition Status Onset Resolution Last Treating Co mments Source Name Details Category Date Date Treatment Clinician Date Localized Localized Disease Active Jeremiah long osteoporos osteoporos 6-08 Me thodi is without is without 00:00: st current current 00 pathologic pathologic al al fracture fracture Peripheral Peripheral Problem Active [facility] [place] nerve Nerve 1-08 da disease Disease 00:00: Medical 00 Group Low serum Low serum Disease Active 2018-05 Jeremiah long cortisol cortisol 0-16 Method i level level 00:00: st 00 Pruritus Pruritus Problem Active 2018-05 [place] of vulva of Vulva 0-15 da 00:00: Medical 00 Group 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 00 Gr oup ucleic ucleic acid test Acid Test positive, Positive, high risk High Risk on vaginal on Vaginal specimen Specimen 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 Papillomav 00:00: Me dical irus test irus Test 00 Grou p positive Positive Atypical 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 9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 Cells of 00:00: Medica l undetermin Undetermin 00 Gr oup ed ed significan Significan ce on ce on vaginal Vaginal Papanicola Papanicola ou smear ou Smear Candidiasi Candidiasi Problem Active M [place] s of s of 9-09 da vagina Vagina 00:00: Medical 00 Group Postsurgic Postsurgic Problem Active [facility] [place] al al 9 da menopause Menopause 00:00: Medi fitz 00 Group Acute Acute Problem Active [place] cystitis Cystitis 830 da 00:00: Medical 00 Group Urinary Urinary Problem Active [place] tract Tract 8-19 da infectious Infectious 00:00: Me dical disease Disease 00 Group Persistent Persistent Problem Active [facility] [place] insomnia Insomnia 8 da 00:00: Medical 00 Group Do[place] Ana's Do[place] Ana's Problem Active [facility] disease Disease 7 da 00:00: Medical 00 Group Abdominal Abdominal Disease Active [facility] Skin tag Skin Tag Problem Active [place] 6 da 00:00: Medical 00 Group Chronic Chronic Problem Active [place] pain Pain 4-17 da 00:00: Medical 00 Group Gastroesop Gastroesop Problem Active [facility] [place] hageal hageal 4-17 da reflux Reflux 00:00: Medical disease Disease 00 Group Crohn's Crohn's Problem Active [place] disease of Disease of 4-17 da small Small 00:00: Medical intestine Intestine 00 Grou p Endometrio Endometrio Problem Active [facility] [place] sis sis 4-17 da (clinical) (Clinical) 00:00: Me dical 00 Group Multiple Multiple Problem Active [place] joint pain Joint Pain 4-17 da 00:00: Medical 00 Group Bilateral Bilateral Disease Active 2018- [facility] - abdominal abdominal 00:00: Medi fitz pain pain 00 Center Crohn's Crohn's Disease Active 2019- [facility] disease disease 3- [facility] - 00:00: Medical 00 Center SBO (small SBO (small Disease Active 2019- [facility] bowel bowel 3-08 [facility] - obstructio obstructio 00:00: Me dical n) n) 00 Center Anxiety Anxiety Problem Active [place] disorder Disorder 6-25 da 00:[facility]: [facility] Endometrio Endometrio Problem Active [facility] [place] sis sis 6-25 da (clinical) (Clinical) 00:00: [facility] 00 [facility] Abdominal Abdominal Disease Active Jeremiah ston pain pain 4-21 Methodi 00:00: st 00 Small Small Disease Active [place] bowel bowel 4-16 Methodi obstructio obstructio 00:00: st n n 00 Colitis Colitis Disease Active [place] presumed presumed 3-21 Method i infectious infectious 00:00: st 00 Panic Panic Problem Active [place] disorder Disorder da without without [facility] agoraphobi Agoraphobi al a a Health Outreac h Program Generalize Generalize Problem Active [facility] [place] d anxiety d Anxiety da disorder Disorder [facility] Allergies, Adverse Reactions, Alerts Allergy Allergy Status Severity Reaction(s) Onset Inactive Treating Comm ents Source Name Type Date Date Clinician Morphine Drug Active Other (See Patient [facility] Allergy Comments) 08-17 said does Mirtha es - 00:00: not work Medical 00 for her. Center Prometha Drug Active Other (See Makes [facility] zine Allergy Comments) 3 mouth/jaw Mirtha es - 00:00: twitch/je Medical 00 Center Remeron Allergy Active Other [place] to 7-30 da substanc 00:00: [facility] Ciproflo Propensi Active Swelling [place] xacin ty to 3-20 [facility] adverse 00:00: st reaction 00 s to drug Prometha Propensi Active Other (See Face [place] zine ty to Comments) 07-18 twitch [facility] adverse 00:00: st reaction 00 s to drug Ciproflo Drug Active Swelling, Makes [facility] t xacin Allergy Anaphylaxis, 10-24 tongue Mirtha es - Hives 00:00: swell Medical 00 Center Prometha Propensi Active Anaphylaxis, Muscle [facility] zine Hcl ty to Other (See 10-24 javad soria - adverse Comments) 00:00: Medica l reaction 00 Center s Trazodon Allergy Active Hives [place] e to da substanc [facility] Cipro Allergy Active Severe Other [place] to da substanc Medical e Group Phenerga Allergy Active Moderate Facial [place] n to swelling da substanc Medical e Group Family History Family Member Diagnosis Comments Start Date Stop Date Source Maternal grandfather Cancer [facility] Maternal grandmother Dementia [facility] Maternal grandmother Endometriosis C [facility] Maternal uncle Suicidality [facility] Natural mother Endometriosis [facility] Social History Social Habit Start Date Stop Date Quantity Comments [facility] Binge Medical [place] [facility] Sex Assigned At [facility] Alcohol intake 2018-12-24 2018-12-24 Current [place] 00:00:00 00:00:00 non-drinker of Sabian[facility] alcohol (finding) Cigarettes smoked 2018-11-12 2018-11-12 [facility] - current (pack per 00:00:00 00:00:00 [facility] Center day) - Reported Cigarette 2018-11-12 2018-11-12 [facility] - pack-years 00:00:00 00:00:[address] [facility] Tobacco Comment 2018-07-21 2018-07-21 currently 1/[address] [facility] - 00:00[facility]00 00:00:[address] [facility] Alcohol Comment 2018-07-21 2018-07-21 social [facility] - 00:00:00 00:00:00 [facility] Center History SDOH 2018-07-06 2018-07-06 [facility] Frequency 00:00:00 00:00:[address] [facility] Smoking Status Start Date Stop Date Source Heavy Tobacco Smoker [facility] Former Smoker [place] [facility] Current every day smoker 2018-12-24 00:00:00 Jeremiah long [facility] Medications Ordered Filled Start Stop Current Ordering Indication Dosage Frequency Signature Comments Components Source Medication Medication Date Date Medication? Clinician (SIG) Name Name cosyntropin 2018-05- No Low serum Inject 1 [place] (CORTROSYN) 0-29 10-31 cortisol mL (250 [facility] 0.25 mg 00:00: 23:59 level (HCC) mcg total) st injection 00 :00 into the shoulder, thigh, or buttocks once for 1 dose budesonide 2018-05- No 9mg Q24H Take 9 mg [place] (UCERIS) 9 0-15 10-15 by mouth Meth deepti mg tablet, 12:23: 00:[address] delayed & 09 :00 needed. ext.release pantoprazol 2018-05 Yes 40mg QD Take 40 mg [place] e 0-15 by mouth [facility] (PROTONIX) 11:57: daily. st 40 MG EC 30 tablet methocarbam 2018-05 Yes 500mg Q6H Take 500 [place] ol 0-15 mg by [facility] (ROBAXIN) 11:57: mouth st 500 MG 30 every 6 tablet (six) hours. clonAZEPAM 2018-05 Yes 1mg Take 1 mg [place] (KlonoPIN) 0-15 by mouth. Meth deepti 1 MG tablet 11:57: st 30 cosyntropin 2018-05 2019- No Low serum 250ug Inject 1 [place] (CORTROSYN) 0-15 10-15 cortisol mL (250 [facility] 0.25 mg 00:00: 23:59 level (HCC) mcg total) st injection 00 :00 into the shoulder, thigh, or buttocks once for 1 dose. acetaminoph Yes 1{tbl} Q.5D Take 1 [place] en-codeine 8 tablet by Meth deepti (TYLENOL 00:00: mouth 2 st WITH 00 (two) CODEINE #4) times a 300-60 mg day. per tablet gabapentin Yes TAKE [place] (NEURONTIN) 12-21 ONE(1) Method i 300 mg 00:00: CAPSULE BY st capsule 00 MOUTH TWICE DAILY cholecalcif Yes 2000U Take 2,000 [place] estephania, 8-20 Units by [facility] vitamin D3, 00:00: mouth. st (VITAMIN 00 D3) 2,000 unit capsule capsule escitalopra Yes TK 1 T PO [place] m (LEXAPRO) 808 QAM [facility] 10 MG 00:00: st tablet 00 hydrocortis 2019- No [place] one 12-03 10-15 [facility] (CORTEF) 20 00:00: 00:00 st MG tablet 00 :00 hydrocortis 2019- No 40mg QD Take [address] one 7-20 08-19 tablets [facility] - (CORTEF) 20 00:00: 23:59 (40 mg Med ical MG tablet 00 :00 total) by Cente r mouth every morning for 30 days. hydrocortis Yes U REC BID [place] one -19 FOR 10 [facility] (ANUSOL-HC) 00:00: DAYS st 2.5 % 00 rectal cream valACYclovi Yes [place] (VALTREX) 11-16 [facility] 1000 MG 00:00: st tablet 00 hydrocortis 2019- No 20mg Q24H Take [address] one 11-16-18 tablet (20 [facility] - (CORTEF) 20 00:00: 23:59 mg total) Medical MG tablet 00 :00 by mouth Center daily for 30 days. Lactobacill 2019- No 1{tbl} Q.5D Take [address] us 11-1618 tablet by [facility] - acidoph-L.b 00:00: 23:59 mouth 2 Me dical ulgar 00 :00 (two) Center (FLORANEX) times 1 million daily for cell Tab 30 days. per tablet pantoprazol 2018- No heartburn 40mg QD Take [address] e 11-16 tablet (40 [facility] - (PROTONIX) 00:00: 23:59 mg total) M edical 40 MG 00 :00 by mouth Center tablet daily for 30 days. terconazole Yes I 1 [place] (TERAZOL 7) 6-25 APPLICATOR Me thodi 0.4 % 00:00: FUL st vaginal 00 VAGINALLY cream QD FOR 7 DAYS ustekinumab Yes 90mg Inject 90 [place] (STELARA) 5-07 mg under Method i 90 mg/mL 00:00: the skin. st injection 00 gabapentin 2020- No 300mg [id number] Take [address] (NEURONTIN) 4-25 04-24 [id number] capsule [facility] - 300 MG 00:00: 23:59 3D (300 mg Medical capsule 00 :00 total) by Center mouth 3 (three) times daily. clonazePAM Yes 1mg Q.25D Take [address] (KLONOPIN) 3-23 by mouth 4 Mirtha es - 1 MG tablet 08:21: (four) Medi fitz 16 times Center daily . multivitami Yes 1{tbl} QD Take [address] n,tx-iron-m 3-11 tablet by Mirtha es - inerals Tab 11:00: mouth Medic al 47 daily. [place] terconazole Yes 1{appli QD Place [address] (TERAZOL 7) 3-11 cator} applicator [facility] - 0.4 % 11:00: vaginally Medical vaginal 47 nightly. [place] cream escitalopra Yes posttraumat 10mg QD Take [address] m oxalate 3-08 ic stress by mouth L u[facility] - (LEXAPRO) 08:07: syndrome daily. Me dical 10 MG 18 Center tablet mesalamine Yes Crohn's 2400mg Take 2,[address] (LIALDA) 3-08 disease mg by [facility] - 1.2 gram EC 08:07: mouth Medic al tablet 18 daily with Center breakfast. STELARA 90 2017-05 Yes INJECT [facility] t mg/mL Syrg 2-12 90MG [facility] - 00:00: SUBCUTANEO Medical 00 USLY 8 Center WEEKS AFTER INNDUCTION DOSE THEN EVERY 8 WEEKS THEREAFTER acetaminoph acetaminoph No acetaminop [place] en 300 en 300 hen 300 da mg-codeine mg-codeine mg-codeine [facility] 30 mg 30 mg 30 mg al tablet tablet tablet Health Outreac h Program acetaminoph acetaminoph No acetaminop [place] en 300 en 300 hen 300 da mg-codeine mg-codeine mg-codeine [facility] 60 mg 60 mg 60 mg al tablet tablet tablet Health Outreac h Program alprazolam alprazolam No alprazolam [place] 1 mg tablet 1 mg tablet 1 mg d a tablet [facility] alprazolam alprazolam No alprazolam [place] 2 mg tablet 2 mg tablet 2 mg d a tablet [facility] amoxicillin amoxicillin No amoxicilli [place] 500 mg 500 mg n 500 mg da capsule capsule capsule [facility] Program amoxicillin amoxicillin No amoxicilli [place] [id number] n 875 da mg-potassiu mg-potassiu mg-potassi [facility] m m um al clavulanate clavulanate clavulanat Health 125 mg 125 mg e 125 mg Outreac tablet tablet tablet h Program baclofen 10 baclofen 10 No baclofen [place] mg tablet mg tablet 10 mg da tablet [facility] Outreac h Program buspirone buspirone No 1 QID buspirone [place] 15 mg 15 mg 15 mg da tablet Take tablet Take tablet [facility] 1 tablet 4 1 tablet 4 Take 1 a l times a day times a day tablet 4 Health by oral by oral times a Outrea c route. route. day by h oral Program route. cefuroxime cefuroxime No cefuroxime [place] axetil 500 axetil 500 axetil 500 da mg tablet mg tablet mg tablet [facility] ok [facility]re[facility] Program celecoxib celecoxib No celecoxib [place] 100 mg 100 mg 100 mg da capsule capsule capsule [facility] Outreac h Program cephalexin cephalexin No cephalexin [place] 500 mg 500 mg 500 mg da capsule capsule capsule [facility] Outre h Program chlorhexidi chlorhexidi No chlorhexid [place] ne ne ine da gluconate gluconate gluconate [facility] 0.12 % 0.12 % 0.12 % al mouthwash mouthwash mouthwash Health Outre h Program cholestyram cholestyram No cholestyra [place] ine (with ine (with mine (with da sugar) 4 sugar) 4 sugar) 4 Epi scop gram oral gram oral gram oral al powder powder powder Health Outreac h Program clindamycin clindamycin No clindamyci [place] HCl 300 mg HCl 300 mg n HCl 300 da capsule capsule mg capsule Epi scop ok Health Outreac h Program clonazepam clonazepam No 1 TID clonazepam [place] 1 mg tablet 1 mg tablet 1 mg d a Take 1 Take 1 tablet [facility] tablet 3 tablet 3 Take 1 al times a day times a day tablet 3 Health by oral by oral times a Outrea c route as route as day by h needed. needed. oral route Pro gram as needed. 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 days. 3 days. Cortrosyn Cortrosyn No Cortrosyn [place] 0.25 mg 0.25 mg 0.25 mg da solution solution solution Epi scop for for for al injection injection injection [facility] Outreac h Program diazepam 10 diazepam 10 No diazepam [place] mg tablet mg tablet 10 mg da tablet [facility] Outreac h Program diazepam 5 diazepam 5 No diazepam 5 [place] mg tablet mg tablet mg tablet da [facility] Outreac h Program dicyclomine dicyclomine No dicyclomin [place] 10 mg 10 mg e 10 mg da capsule capsule capsule [facility] Outreac h Program dicyclomine dicyclomine No dicyclomin [place] 20 mg 20 mg e 20 mg da tablet tablet tablet [facility] Outreac h Program doxycycline doxycycline No doxycyclin [place] hyclate 100 hyclate 100 e hyclate da mg tablet mg tablet 100 mg Epi scop tablet ok Health Outreac h Program estradiol 1 estradiol 1 No estradiol [place] mg tablet mg tablet 1 mg da tablet [facility] Outreac h Program fluconazole fluconazole No fluconazol [place] 100 mg 100 mg e 100 mg da tablet tablet tablet [facility] Outreac h Program fluconazole fluconazole No fluconazol [place] 150 mg 150 mg e 150 mg da tablet tablet tablet [facility] Outreac h Program fluconazole fluconazole No fluconazol [place] 200 mg 200 mg e 200 mg da tablet tablet tablet [facility] Outreac h Program gabapentin gabapentin No gabapentin [place] 300 mg 300 mg 300 mg da capsule capsule [facility] Outre[facility] h Program hydrocodone hydrocodone No hydrocodon [place] 5 5 e 5 da mg-acetamin mg-acetamin mg-acetami [facility] ophen 325 ophen 325 nophen 325 al mg tablet mg tablet mg tablet Health Outreac h Program hydrocodone hydrocodone No hydrocodon [place] 7.5 7.5 e 7.5 da mg-acetamin mg-acetamin mg-acetami [facility] ophen 325 ophen 325 nophen 325 al mg tablet mg tablet mg tablet [facility] Outreac h Program hydrocortis hydrocortis No hydrocorti [place] one 20 mg one 20 mg sone 20 mg da tablet tablet tablet [facility] Health Outreac h Program Lexapro 10 Lexapro 10 No Lexapro 10 [place] mg tablet mg tablet mg tablet da Take 1 Take 1 Take 1 [facility] tablet by tablet by tablet by al mouth every mouth every mouth Health morning. morning. every Outrea c morning. h Program lidocaine lidocaine No lidocaine [place] HCl 2 % HCl 2 % HCl 2 % da mucosal mucosal mucosal [facility] p jelly jelly jelly al Health Outreac h Program loperamide loperamide No loperamide [place] 2 mg 2 mg 2 mg da capsule capsule capsule [facility] Outre[facility] Program mesalamine mesalamine No mesalamine [place] 1.2 gram 1.2 gram 1.2 gram da tablet,sarah tablet,sarah tablet,del [facility] yed release yed release ayed a l Take 2 Take 2 release Health tablets tablets Take 2 Outreac every day every day tablets h by oral by oral every day Prog kam route in route in by oral the the route in morning. morning. the morning. methylpredn methylpredn No methylpred [place] isolone 4 isolone 4 nisolone 4 da mg tablets mg tablets mg tablets [facility] in a dose in a dose in a dose al pack pack pack Health Outreac h Program metoclopram metoclopram No metoclopra [place] sam 10 mg sam 10 mg mide 10 mg da tablet tablet tablet [facility] metronidazo metronidazo No metronidaz [place] le 500 mg le 500 mg ole 500 mg da tablet tablet tablet [facility] montelukast montelukast No montelukas [place] 10 mg 10 mg t 10 mg da tablet tablet tablet [facility] nitrofurant nitrofurant No nitrofuran [place] oin oin toin da monohydrate monohydrate monohydrat [facility] /macrocryst /macrocryst e/macrocry al als 100 mg als 100 mg stals 100 Health capsule capsule mg capsule Out reac h Program nystatin nystatin No nystatin [place] 100,000 100,000 100,000 da unit/gram unit/gram unit/gram [facility] topical topical topical al cream cream cream Health Outreac h Program nystatin nystatin No nystatin [place] 100,000 100,000 100,000 da unit/mL unit/mL unit/mL [facility] oral oral oral al suspension suspension suspension Health Outreac h Program oxycodone oxycodone No oxycodone [place] 10 mg 10 mg 10 mg da tablet tablet tablet [facility] pantoprazol pantoprazol No pantoprazo [place] e 40 mg e 40 mg le 40 mg da tablet,sarah tablet,sarah tablet,del [facility] yed release yed release ayed a l Take 1 Take 1 release Health tablet tablet Take 1 Outreac every day every day tablet h by oral by oral every day Prog kam route. route. by oral route. prednisone prednisone No prednisone [place] 10 mg 10 mg 10 mg da tablet tablet tablet [facility] Outreac h Program prednisone prednisone No prednisone [place] 20 mg 20 mg 20 mg da tablet tablet tablet [facility] Outreac h Program prednisone prednisone No prednisone [place] 5 mg tablet 5 mg tablet 5 mg d a tablet [facility] Outreac h Program Proctozone- Proctozone- No Proctozone [place] HC 2.5 % HC 2.5 % -HC 2.5 % da topical topical topical [facility] cream cream cream al perineal perineal perineal Hea lth applicator applicator applicator Outreac h Program quetiapine quetiapine No quetiapine [place] 50 mg 50 mg 50 mg da tablet Take tablet Take tablet [facility] 1 tablet 1 tablet Take 1 al every day every day tablet Hea lth by oral by oral every day Outr eac route at route at by oral h bedtime. bedtime. route at Pro gram bedtime. Stelara 130 Stelara 130 No Stelara [place] mg/26 mL mg/26 mL 130 mg/26 da intravenous intravenous mL E [facility]iscop solution solution intravenou a l s solution Health Outreac h Program Stelara 90 Stelara 90 No Stelara 90 [place] mg/mL mg/mL mg/mL da subcutaneou subcutaneou subcutaneo [facility] s syringe s syringe us syringe ok Health Outreac h Program sucralfate sucralfate No sucralfate [place] 1 gram 1 gram 1 gram da tablet tablet tablet [facility] sulfamethox sulfamethox No sulfametho [place] azole 800 azole 800 xazole 800 da mg-trimetho mg-trimetho mg-trimeth [facility] prim 160 mg prim 160 mg oprim 160 al tablet Take tablet Take mg tablet Health 1 tablet 1 tablet Take 1 Outre ac every 12 every 12 tablet h hours by hours by every 12 Pro gram oral route oral route hours by for 3 days. for 3 days. oral route for 3 days. Suprep Suprep No Suprep [place] Bowel Prep Bowel Prep Bowel Prep da Kit 17.5 Kit 17.5 Kit 17.5 Epi scop gram-3.13 gram-3.13 gram-3.13 al gram-1.6 gram-1.6 gram-1.6 Hea lth gram oral gram oral gram oral Outreac solution solution solution h Program terconazole terconazole No terconazol [place] 0.4 % 0.4 % e 0.4 % da vaginal vaginal vaginal [facility] cream cream cream al Health Outreac h Program tramadol 50 tramadol 50 No tramadol [place] mg tablet mg tablet 50 mg da tablet [facility] triamcinolo triamcinolo No triamcinol [place] ne ne one da acetonide acetonide acetonide [facility] 0.5 % 0.5 % 0.5 % al topical topical topical Health ointment ointment ointment Out reac h Program valacyclovi valacyclovi No valacyclov [place] r 1 gram r 1 gram ir 1 gram da tablet tablet tablet [facility] Program baclofen 10 baclofen 10 No baclofen [place] mg tablet mg tablet 10 mg da TAKE 1 TAKE 1 tablet Medical TABLET BY TABLET BY TAKE 1 [place] up MOUTH THREE MOUTH THREE TABLET BY TIMES DAILY TIMES DAILY MOUTH THREE TIMES DAILY buspirone buspirone No buspirone [place] 15 mg 15 mg 15 mg da tablet tablet tablet Medical Group ciclopirox ciclopirox No ciclopirox [place] 8 % topical 8 % topical 8 % d a solution solution topical Medi fitz APPLY TO APPLY TO solution [place] up THE THE APPLY TO AFFECTED AFFECTED THE AREA(S) BY AREA(S) BY AFFECTED TOPICAL TOPICAL AREA(S) BY ROUTE ONCE ROUTE ONCE TOPICAL DAILY DAILY ROUTE ONCE PREFERABLY PREFERABLY DAILY AT BEDTIME AT BEDTIME PREFERABLY OR 8 HOURS OR 8 HOURS AT BEDTIME BEFORE BEFORE OR 8 HOURS WASHING WASHING BEFORE WASHING clonazepam clonazepam No clonazepam [place] 1 mg tablet 1 mg tablet 1 mg d a 1 TAB PO 1 TAB PO tablet 1 Med ical FOUR TIMES FOUR TIMES TAB PO G roup A DAILY A DAILY FOUR TIMES NEEDED NEEDED A DAILY NEEDED escitalopra escitalopra No escitalopr [place] m 10 mg m 10 mg am 10 mg da tablet tablet tablet Medical Group estradiol 1 estradiol 1 No estradiol [place] mg tablet mg tablet 1 mg da take one take one tablet Medic al tab p.o. q tab p.o. q take one Group day day tab p.o. q day gabapentin gabapentin No gabapentin [facility] 300 mg 300 mg 300 mg da capsule capsule capsule Medica l Take 1 Take 1 Take 1 Group capsule 3 capsule 3 capsule 3 times a day times a day times a by oral by oral day by route for route for oral route 30 days. 30 days. for 30 days. hydrochloro hydrochloro No hydrochlor [facility] thiazide 25 thiazide 25 othiazide da mg tablet mg tablet 25 mg Medi fitz Take 1 Take 1 tablet Group tablet tablet Take 1 every day every day tablet by oral by oral every day route. route. by oral route. methylpredn methylpredn No methylpred [facility] isolone 4 isolone 4 nisolone 4 da mg tablets mg tablets mg tablets Medical in a dose in a dose in a dose Group pack pack pack montelukast montelukast No montelukas [facility] 10 mg 10 mg t 10 mg da tablet Take tablet Take tablet Medical 1 tablet 1 tablet Take 1 Group every day every day tablet by oral by oral every day route. route. by oral route. Narcan 4 Narcan 4 No Narcan 4 [facility] mg/actuatio mg/actuatio mg/actuati da n nasal n nasal on nasal Medic al spray 1 spray 1 spray 1 Group spray in spray in spray in one nostril one nostril one Q 2-3 min Q 2-3 min nostril Q until until 2-3 min responsive responsive until or EMS or EMS responsive arrives arrives or EMS arrives pantoprazol pantoprazol No pantoprazo [facility] e 40 mg e 40 mg le 40 mg da tablet,sarah tablet,sarah tablet,del Medical yed release yed release ayed G roup 1 TAB PO QD 1 TAB PO QD release 1 TAB PO QD quetiapine quetiapine No quetiapine [facility] 50 mg 50 mg 50 mg da tablet tablet tablet Medical Group Reclast 5 Reclast 5 No Reclast 5 [facility] mg/100 mL mg/100 mL mg/100 mL da intravenous intravenous intravenou Medical piggyback piggyback s Group Inject by Inject by piggyback intravenous intravenous Inject by route. route. intravenou s route. Stelara 90 Stelara 90 No Stelara 90 [facility] mg/mL mg/mL mg/mL da subcutaneou subcutaneou subcutaneo Medical s syringe s syringe us syringe Group sucralfate sucralfate No sucralfate [facility] 1 gram 1 gram 1 gram da tablet tablet tablet Medical Group terbinafine terbinafine No terbinafin [facility] HCl 250 mg HCl 250 mg e HCl 250 da tablet Take tablet Take mg tablet Medical 1 tablet 1 tablet Take 1 Group every day every day tablet by oral by oral every day route. route. by oral route. Immunizations Ordered Immunization Filled Immunization Date Status Commen ts Source Name Name influenza, influenza, 2019-05-08 Completed [facility] injectable, injectable, 14:33:00 Medical Grou p quadrivalent, quadrivalent, preservative free preservative free Vital Signs Vital Name Observation Time Observation Value Comments Source BP Diastolic 2019-11-07 00:00:00 73 mm[Hg] [facility] Height 2019-11-07 00:00:00 62 [in_i] [facility] BMI (Body Mass 2019-11-07 00:00:00 27.1 kg/m2 [facility] Medical Index) Group BP Systolic 2019-11-07 00:00:00 105 mm[Hg] [facility] Body Weight 2019-11-07 00:00:00 2369 [oz_av] [facility] BP Diastolic 2019-10-15 00:00:00 94 mm[Hg] [facility] Height 2019-10-15 00:00:00 62 [in_i] [facility] BMI (Body Mass 2019-10-15 00:00:00 27.8 kg/m2 [facility] Medical Index) Group BP Systolic 2019-10-15 00:00:00 135 mm[Hg] [facility] Body Weight 2019-10-15 00:00:00 2432 [oz_av] [facility] BP Diastolic 2019-07-12 00:00:00 77 mm[Hg] [facility] Height 2019-07-12 00:00:00 62 [in_i] [facility] BMI (Body Mass 2019-07-12 00:00:00 27.7 kg/m2 [facility] Medical Index) Group BP Systolic 2019-07-12 00:00:00 101 mm[Hg] [facility] Body Weight 2019-07-12 00:00:00 2425 [oz_av] [facility] BP Diastolic 2019-05-08 00:00:00 81 mm[Hg] [facility] Height 2019-05-08 00:00:00 62 [in_i] [facility] BMI (Body Mass 2019-05-08 00:00:00 27.3 kg/m2 [facility] Medical Index) Group BP Systolic 2019-05-08 00:00:00 123 mm[Hg] [facility] Body Weight 2019-05-08 00:00:00 2384 [oz_av] [facility] BP Diastolic 2019-01-29 00:00:00 64 mm[Hg] [facility] Height 2019-01-29 00:00:00 62 [in_i] [facility] BMI (Body Mass 2019-01-29 00:00:00 27.9 kg/m2 [facility] Medical Index) Group BP Systolic 2019-01-29 00:00:00 108 mm[Hg] [facility] Body Weight 2019-01-29 00:00:00 152.3 [lb_av] [facility] BP Diastolic 2019-01-25 00:00:00 71 mm[Hg] [facility] Height 2019-01-25 00:00:00 62 [in_i] [facility] BMI (Body Mass 2019-01-25 00:00:00 28.2 kg/m2 [facility] Medical Index) Group BP Systolic 2019-01-25 00:00:00 91 mm[Hg] [facility] Body Weight 2019-01-25 00:00:00 154.2 [lb_av] [facility] BP Diastolic 2019-01-07 00:00:00 80 mm[Hg] [facility] Height 2019-01-07 00:00:00 62 [in_i] [facility] BMI (Body Mass 2019-01-07 00:00:00 29 kg/m2 [facility] Medical Index) Group BP Systolic 2019-01-07 00:00:00 109 mm[Hg] [facility] Body Weight 2019-01-07 00:00:00 158.6 [lb_av] [facility] BP Diastolic 2018-12-27 00:00:00 67 mm[Hg] [facility] Height 2018-12-27 00:00:00 62 [in_i] [facility] BMI (Body Mass 2018-12-27 00:00:00 27.9 kg/m2 [facility] Medical Index) Group BP Systolic 2018-12-27 00:00:00 92 mm[Hg] [facility] Body Weight 2018-12-27 00:00:00 152.3 [lb_av] [facility] BP Diastolic 2018-12-17 00:00:00 93 mm[Hg] [facility] Height 2018-12-17 00:00:00 62 [in_i] [facility] BMI (Body Mass 2018-12-17 00:00:00 28.3 kg/m2 [facility] Medical Index) Group BP Systolic 2018-12-17 00:00:00 137 mm[Hg] [facility] Body Weight 2018-12-17 00:00:00 2480 [oz_av] [facility] BP Diastolic 2018-12-07 00:00:00 73 mm[Hg] [facility] Height 2018-12-07 00:00:00 62 [in_i] [facility] BMI (Body Mass 2018-12-07 00:00:00 30 kg/m2 [facility] Medical Index) Group BP Systolic 2018-12-07 00:00:00 145 mm[Hg] [facility] Body Weight 2018-12-07 00:00:00 2624 [oz_av] [facility] BP Diastolic 2018-10-17 00:00:00 90 mm[Hg] [facility] Height 2018-10-17 00:00:00 62 [in_i] [facility] BMI (Body Mass 2018-10-17 00:00:00 27.3 kg/m2 [facility] Medical Index) Group BP Systolic 2018-10-17 00:00:00 153 mm[Hg] [facility] Body Weight 2018-10-17 00:00:00 2384 [oz_av] [facility] BP Diastolic 2018-09-17 00:00:00 84 mm[Hg] [facility] Height 2018-09-17 00:00:00 62 [in_i] [facility] BMI (Body Mass 2018-09-17 00:00:00 27.3 kg/m2 [facility] Medical Index) Group BP Systolic 2018-09-17 00:00:00 120 mm[Hg] [facility] Body Weight 2018-09-17 00:00:00 2384 [oz_av] [facility] BP Diastolic 2018-08-29 00:00:00 80 mm[Hg] [facility] Height 2018-08-29 00:00:00 62 [in_i] [facility] BMI (Body Mass 2018-08-29 00:00:00 27.3 kg/m2 [facility] Medical Index) Group BP Systolic 2018-08-29 00:00:00 105 mm[Hg] [facility] Body Weight 2018-08-29 00:00:00 2384 [oz_av] [facility] BP Diastolic 2018-08-15 00:00:00 94 mm[Hg] [facility] Height 2018-08-15 00:00:00 62 [in_i] [facility] BMI (Body Mass 2018-08-15 00:00:00 29.1 kg/m2 [facility] Medical Index) Group BP Systolic 2018-08-15 00:00:00 136 mm[Hg] [facility] Body Weight 2018-08-15 00:00:00 2544 [oz_av] [facility] Systolic blood 2019-10-28 13:16:00 124 mm[Hg] [place] [facility] pressure Diastolic blood 2019-10-28 13:16:00 86 mm[Hg] Jaymie on [facility] pressure Heart rate 2019-10-28 13:16:00 73 /min [facility] Respiratory rate 2019-10-28 13:16:00 18 /min Vince alvarez [facility] Body temperature 2019-10-28 10:50:00 36.11 Marguerite Vince alvarez [facility] Body height 2019-02-12 11:56:00 158.8 cm Narayan Johnson Body weight 2019-02-12 11:56:00 67.586 kg Narayan Johnson BMI 2019-02-12 11:56:00 26.82 kg/m2 Narayan Johnson Oxygen saturation in 2019-02-12 11:56:00 95 /min [facility] Arterial blood by Pulse oximetry Procedures Procedure Date / Time Performing Source Performed Clinician US, doppler, venous 2019-10-15 00:00:00 [facility] XR, knee, 3 view 2019-10-15 00:00:[address] ABDOMEN/PELVIS WITH IV 2019-06-19 09:15:00 Arnaldo Zelaya I [facility] CORTISOL, 30 MINUTES 2019-05-23 15:20:00 Lex Conde on [facility] H. ADRENOCORTICOTROPIC HORMONE 2019-05-23 14:00:00 Saumya Conde H. CORTISOL, 60 MINUTES 2019-05-23 11:43:00 Lex Conde on [facility] H. CORTISOL LEVEL, AM 2019-02-06 08:04:00 Lex Conde H. ADRENOCORTICOTROPIC HORMONE 2019-02-06 08:04:00 Saumya Conde [facility] H. THYROID STIMULATING HORMONE 2019-02-06 08:04:00 Saumya Conde H. T4, FREE 2019-02-06 08:04:00 Lex Conde [facility] H. COMPREHENSIVE METABOLIC PANEL 2019-02-06 08:04:00 Gurmeet Conde H. VITAMIN D 25 HYDROXY LEVEL 2019-02-06 08:04:00 Lex Conde H. COMPREHENSIVE METABOLIC PANEL 2019-02-04 00:00:00 Gurmeet Conde [facility] H. ADRENOCORTICOTROPIC HORMONE 2019-02-04 00:00:00 Saumya Conde [place] [facility] H. T4, FREE 2019-02-04 00:00:00 Lex Conde [facility] H. THYROID STIMULATING HORMONE 2019-02-04 00:00:00 Saumya Conde [place] [facility] H. CORTISOL LEVEL, AM 2019-02-04 00:00:00 Lex Conde [place] [facility]. VITAMIN D 25 HYDROXY LEVEL 2019-02-04 00:00:00 Lex Conde [place] [facility] H. unlisted imaging order 2018-12-27 00:00:00 [facility] Hysterectomy 2006-05-01 00:00:00 [facility] Caesarean Section [facility] Outreach Program Total Hysterectomy [facility] Outreach [facility] Large Intestine Excision [facility] Cholecystectomy [facility] Plan of Care Planned Activity Planned Date Details Comments Source Future Scheduled Test 2019-11-30 [facility] 00:00:00 [code = INFLUENZA VACCINE] Diagnostic Test 2019-11-07 uric acid, serum or [facility] Pending 00:00:00 plasma [code = uric Group acid, serum or plasma] Diagnostic Test 2019-11-07 C reactive protein, [facility] 00:00:00 QN, serum or plasma Group [code = C reactive protein, QN, serum or plasma] Diagnostic Test 2019-11-07 ESR [facility]erythrocyte [facility]:00 sedimentation rate), Group blood [code = ESR (erythrocyte sedimentation rate), blood] Future Scheduled Test 1992-09-13 Screening for [place] [facility] 00:00:00 malignant neoplasm of cervix (procedure) [code = 091702943] Future Appointment 2019-12-10 Vj Wang, [address] [place] 00:00:00 Regino Coyne , [place] [address] Outreach Program Future Appointment 2019-12-09 Vj Wang, [address] [facility] 10:30:[address] [place] [address] Outreach Program Future Appointment 2019-12-03 Jake Franco, [address] [facility] 14:30:00 [facility] 101; , [place] [address] Instructions [facility] m Instructions [facility] Group Encounters Start End Encounter Admission Attending Care Care Encounter Source Date/Time Date/Time Type Type Clinicians Facility Department ID 2016-11-04 Inpatient C [facility] [id number] 0 [place] 09:30:00 [facility] 2019-11-07 2019-11-[address] [facility] [id number] 09:07:33 09:22:33 Visit [facility] [id number] Surgical [id number] Specialti [id number] es [address] [place] 2019-11-07 2019-11-07 Merari [facility] [place] - [id number] M atagor 00:00:00 00:00:00 Anahy Long [facility] Medical MOVIE PRODUCER: [address] [address] , Ph. 2019-10-31 2019-10-31 Outpatient [facility] [id number] [place] 00:00:00 00:00:00 LEX 640 Metho di 2019-10-28 2019-10-28 Outpatient [facility] [id number] [place] 00:00:00 00:00:[address] 2019-10-15 2019-10-15 Julia [facility] [place] - [id number] M atagor 00:00:00 00:00:00 Discovery ysabel Schulz MOVIE PRODUCER: [address] [address] , Ph. 2019-09-09 2019-09-09 Vj VILLA [place] - [id number] M [facility] 00:00:00 00:00:00 Jer Wang MD: [facility] Epi scop 1700 HOP - MEHOP al [facility] [address] [facility] , Ph. [phone] 2019-08-23 2019-08-23 Merari [facility] [place] - [id number] M atagor 00:00:00 00:00:00 Anahy Long, Medical Medical MOVIE PRODUCER: 600 [facility] [address], [place] [address] , Ph. 2019-07-26 2019-07-26 Merari [facility] [place] - [id number] M atagor 00:00:00 00:00:00 Anahy Long, Medical Medical MOVIE PRODUCER: [address] [address], [place] [address] , Ph. 2019-07-19 2019-07-19 Outpatient [facility] [id number] [place] 00:00:00 00:00:[address] LEX [address] 2019-07-12 2019-07-12 Merari [facility] [place] - [id number] M atagor 00:00:00 00:00:00 Anahy Long, Medical Medical MOVIE PRODUCER: [address] [address], [place] [address] , Ph. 2019-07-11 2019-07-11 Office ARMANDO Dalal [id number] 11:02:17 12:07:46 Visit Luís Keating AMBULATOR 350.1.13.21 Y [id number] [id number] 2019-06-19 2019-06-19 Office Javon Jani [facility] [id number] 09:23:37 13:56:08 Visit Jase 350.1.13.21 [id number] [id number] 2019-06-19 2019-06-19 Office ARMANDO Zelaya [id number] 10:50:49 11:20:49 Visit Arnaldo AMBULATOR 350.1.13.21 Y 0.2.7.2.686 [id number] 2019-06-12 2019-06-12 Office ARMANDO Zelaya [id number] 08:17:31 08:47:31 Visit Arnaldo AMBULATOR 350.1.13.21 Y 0.2.7.2.686 [id number] 2019-06-10 2019-06-10 Vj ALLEN [place] - [id number] M atagor 00:00:00 00:00:00 Jer Wang MD: [facility] Epi scop 1700 [facility] [place], [facility], [facility] [address] , Ph. [phone] 2019-05-08 Mychal Syed [facility] [place] - [id number] M atagor 00:00:00 00:00:00 MD Suhas: Discovery grady [address] [place] [address] 201[facility] [address] , Ph. 2019-03-18 2019-03-18 Vj VILLA [place] - [id number] M [facility]or 00:00:00 00:00:00 Jer Wang MD: Scient[facility] Epi scop 1700 HOP ALLEN Manrique, [facility], [facility] [address] , Ph. [phone] -[phone] 2019-01-29 Jake GEE [place] - [id number] M atagor 00:00:00 00:00:00 Discovery ysabel Franco MD: [address] [place] [address], [place] [address] , Ph. [phone] 2019-01-25 2019-01-25 Jake JAY [place] - [id number] M atagor 00:00:00 00:00:00 Discovery ysabel Franco MD: [address] [place] [address] [place] [address] , Ph. [phone] 2019-01-07 2019-01-07 Jake JAY [place] - [id number] M [facility] 00:00:00 00:00:00 Discovery ysabel Franco MD: [address] [place] [address] 101, [place] [address] , Ph. [phone] 2018-12-27 2018-12-27 Jake JAY [place] - [id number] M [facility] 00:00:00 00:00:00 Discovery ysabel Franco MD: [address] [place] [address] 101, [place] [address] , Ph. [phone] 2018-12-18 2018-12-18 Office Otto [facility] [id number] 09:55:23 16:38:01 Visit K AMBULATOR 350.1.13.21 Y 0.2.7.2.686 [id number] 2018-12-17 2018-12-17 Mychal JAY [place] - [id number] M atagor 00:00:00 00:00:00 MD Suhas: Discovery grady [address] [place] [address], [facility] [place] [address] , Ph. 2018-12-07 2018-12-07 Mychal JAY [place] - [id number] M at[facility]or 00:00:00 00:00:00 MD Suhas: Discovery starr [address] [address], [facility] [place] [address] , Ph. 2018-10-17 2018-10-17 Mychal JAY [place] - [id number] M at[facility]or 00:00:00 00:00:00 MD Suhas: Discovery grady [address] [place] [address] - [facility] 201, [facility], [place] [address] , Ph. 2018-09-17 2018-09-17 Julia JAY [place] - [id number] M atagor 00:00:00 00:00:00 Discovery ysabel Schulz MOVIE PRODUCER: 600 [facility], [facility] 201, [facility], [place] [address] , Ph. 2018-08-29 2018-08-29 Mychal Syed [facility] [place] - [id number] M atagor 00:00:00 00:00:00 MD Suhas: Discovery grady 600 [facility], [facility] 201, [facility] [place] [address] , Ph. 2018-08-15 2018-08-15 Mychal Syed [facility] [place] - [id number] M atagor 00:00:00 00:00:00 MD Suhas: Discovery grady 600 [facility], [place] [address], [place] [address] , Ph. 2016-07-15 2016-07-19 Inpatient 1 HARSHIL ALLEN [facility] [id number] [facility] 18:47:00 10:30:00 [facility] Hospit a l ([facility]) 2013-11-19 2013-11-19 Emergency E I, [facility] [id number] [address] [place] [address] 10:08:00 12:55:00 [facility] Results Test Description Test Time Test Comments Results Result Comments Source Urinalysis macro (dipstick) panel - Urine 2019-10-15 15:18:0 0 Test Item Value Reference Range Interpretation Comme nts Leukocytes (test code = Leukocytes) Negative Nitrite (test code = Nitrite) negative Urobilinogen (test code = Urobilinogen) 1 Protein (test code = Protein) Trace pH (test code = pH) 6.0 Blood (test code = Blood) Negative Specific [place] (test code = Specific [place]) 1.030 Ketone (test code = Ketone) Negative Bilirubin (test code = Bilirubin) Small Glucose (test code = Glucose) Negative Appearance (test code = Appearance) Clear Color (test code = Color) Dark Yellow [facility]dipstick) panel - [id number] 15:18:00 Test Item Value Reference Range Interpretation Comments Leukocytes (test code = Negative Leukocytes) Nitrite (test code = Nitrite) negative Urobilinogen (test code = 1 Urobilinogen) Protein (test code = Protein) Trace pH (test code = pH) 6.0 Blood (test code = Blood) Negative Specific [place] (test code = 1.030 Specific [place]) Ketone (test code = Ketone) Negative Bilirubin (test code = Bilirubin) Small Glucose (test code = Glucose) Negative Appearance (test code = Clear Appearance) Color (test code = Color) Dark Yellow [facility] 2000 panel - Serum or Plasma 2019-10-15 01:33:00 Test Item Value Reference Range Interpretation Comments glucose (test code = glucose) 90 mg/dL 74-106 Urea nitrogen [Mass/volume] in 12 mg/dL 6-20 Serum or Plasma (test code = 3094-0) osmolality calculated,serum (test 282 mOsm/kg 280-300 code = osmolality calculated,serum) creatinine (test code = 0.8 mg/dL 0.50-0.90 creatinine) glomerular filtration rate (test >60.00 code = glomerular filtration rate) Urea nitrogen/Creatinine [Mass 15.0 12-20 Ratio] in Serum or Plasma (test code = 3097-3) sodium level (test code = sodium 142 mmol/L 135-145 level) Potassium [Moles/volume] in Body 4.1 mmol/L 3.5-5.2 fluid (test code = 2821-7) chloride level (test code = 106 mmol/L 98-108 chloride level) CO2 (test code = CO2) 26 mmol/L 21-32 anion gap (test code = anion gap) 14.1 mEq/L 12-20 calcium level (test code = 8.9 mg/dL 8.6-10.0 calcium level) total protein (test code = total 6.6 g/dL 6.6-8.7 protein) albumin (test code = albumin) 3.8 g/dL 3.5-5.2 globulin (test code = globulin) 2.8 gm/dL A/G ratio (test code = A/G ratio) 1.4 >1.0 bilirubin,total (test code = <0.3 0.0-1.2 bilirubin,total) AST/SGOT (test code = AST/SGOT) 21 U/L 15-32 Alanine aminotransferase 17 U/L 0-33 [Enzymatic activity/volume] in Serum or Plasma (test code = 1742-6) Alkaline phosphatase [Enzymatic 89 U/L 35-105 activity/volume] in Serum or Plasma (test code = 6768-6) [facility] metabolic 2000 panel - Serum or Plasma 2019-10-15 01:33:00 Test Item Value Reference Range Interpretation Comments glucose (test code = glucose) 90 mg/dL 74-106 Urea nitrogen [Mass/volume] in 12 mg/dL 6-20 Serum or Plasma (test code = 3094-0) osmolality calculated,serum (test 282 mOsm/kg 280-300 code = osmolality calculated,serum) creatinine (test code = 0.8 mg/dL 0.50-0.90 creatinine) glomerular filtration rate (test >60.00 code = glomerular filtration rate) Urea nitrogen/Creatinine [Mass 15.0 12-20 Ratio] in Serum or Plasma (test code = 3097-3) sodium level (test code = sodium 142 mmol/L 135-145 level) Potassium [Moles/volume] in Body 4.1 mmol/L 3.5-5.2 fluid (test code = 2821-7) chloride level (test code = 106 mmol/L 98-108 chloride level) CO2 (test code = CO2) 26 mmol/L 21-32 anion gap (test code = anion gap) 14.1 mEq/L 12-20 calcium level (test code = 8.9 mg/dL 8.6-10.0 calcium level) total protein (test code = total 6.6 g/dL 6.6-8.7 protein) albumin (test code = albumin) 3.8 g/dL 3.5-5.2 globulin (test code = globulin) 2.8 gm/dL A/G ratio (test code = A/G ratio) 1.4 >1.0 bilirubin,total (test code = <0.3 0.0-1.2 bilirubin,total) AST/SGOT (test code = AST/SGOT) 21 U/L 15-32 Alanine aminotransferase 17 U/L 0-33 [Enzymatic activity/volume] in Serum or Plasma (test code = 1742-6) Alkaline phosphatase [Enzymatic 89 U/L 35-105 activity/volume] in Serum or Plasma (test code = 6768-6) [facility] blood [id number] 10:15:00 Test Item Value Reference Range Interpretation Comments [facility] blood collection sent to [facility] (test code = [facility] blood collection) [facility] blood [id number] 10:15:00 Test Item Value Reference Range Interpretation Comments [facility] blood collection sent to [facility] (test code = [facility] blood collection) [facility] macro (dipstick) panel - [id number] 14:31:00 Test Item Value Reference Range Interpretation Comments Leukocytes (test code = Leukocytes) Negative Nitrite (test code = Nitrite) negative Urobilinogen (test code = .2 Urobilinogen) Protein (test code = Protein) Negative pH (test code = pH) 6.5 Blood (test code = Blood) Negative Specific [place] (test code = 1.025 Specific [place]) Ketone (test code = Ketone) Negative Bilirubin (test code = Bilirubin) Negative Glucose (test code = Glucose) Negative Appearance (test code = Appearance) Cloudy Color (test code = Color) Yellow [facility] Hospital[facility]ysis macro (dipstick) panel - [id number] 14:31:00 Test Item Value Reference Range Interpretation Comments Leukocytes (test code = Leukocytes) Negative Nitrite (test code = Nitrite) negative Urobilinogen (test code = .2 Urobilinogen) Protein (test code = Protein) Negative pH (test code = pH) 6.5 Blood (test code = Blood) Negative Specific [place] (test code = 1.025 Specific [place]) Ketone (test code = Ketone) Negative Bilirubin (test code = Bilirubin) Negative Glucose (test code = Glucose) Negative Appearance (test code = Appearance) Cloudy Color (test code = Color) Yellow [facility] HospitalCT, [id number] 10:26:00ENTEROGRAPHYFINAL REPORT CT of the abdomen and pelvis, [...] Discussion: Visualized lower thorax is unremarkable. Liver appearsmildly fatty. No liver lesion is identified. No [...] descending and sigmoid colon. Small bowel appears unrema rkable. There is no fistula, or abscess identified. No significant mesenteric, or pericolonic edema.In the pelvis, bladder is normal. Uterus is absent. No adnexal mass. There is no ascites, free air, or lymphadenopathy. Osseous structures demonstrate degenerative change. A mild wedge-shaped deformityof L2 vertebral body is chronic. There is a right-sided implanted spinal stimulator device. Impression: Previously seen inflammatory change adjacent to the ileocolic anastomosis has significantly decreased. No abscess or fistula is identified. Question segmental mild wall thickening in the descending and sigmoid colon. Stable left renal hypodensity that does not measure simple fluid density, probablyreflecting proteinaceous content, consider correlation with ultrasound. Mild hepatic steatosis. Status post hysterectomy. Signed: Chelsey Billings MDReport Verified Date/Time: 06/19/2019 10:26:36 Reading Location: [facility] B1 C013X Ortho Consult Reading Room [facility] Abdomen/Pelvis with IV [id number] 10:26:00 Interface, External Ris In - 06/19/2019 10:[address] of the abdomen and pelvis, [...] steatosis. Status post hysterectomy. Signed: Chelsey Billings MDReport Verified Date/Time: 06/19/2019 10:26:36 Reading Location: [facility] C013X [facility] [id number] 10:45:00 Test Item Value Reference Range Interpretation Comments quest collection (test code = quest quest collection) [facility] [id number] 16:53:12 Test Item Value Reference Range Interpretation Comments Adrenocorticotropic hormone (test 6.7 pg/mL 7.2-63.3 L code = 62002-3) Lab Interpretation (test code = Abnormal 06506-0) Narayan Manuel, 60 [id number] 16:17:29 Test Item Value Reference Range Interpretation Comments Cortisol, 60 Min 21 ug/dL Normal resp onse to 0.25 mg (test code = -24 [place] ([place] [address]-7) a peak cortisol concentration o f greater than 14 ug/dL a t either 30 minutes or 60 m inutes post-stimulatio tiesha Busch MethodistCortisol, 30 [id number] 16:03:30 Test Item Value Reference Range Interpretation Comments Cortisol, 30 min 2 ug/dL Normal resp onse to 0.25 mg (test code = - [place] ([place] [address]-6) a peak cortisol concentration o f greater than 14 ug/dL a t either 30 minutes or 60 m inutes post-stimulatio franciscaDemetri Busch MethodistComprehensive metabolic [id number] 08:04:00 Test Item Value Reference Range Interpretation Comments Glucose (test code 94 mg/dL 65-99 = 2345-7) Fasting reference interval BUN (test code = 11 mg/dL 7 3094-0) Creatinine (test 0.95 mg/dL 0.5-1.1 code = 2160-0) EGFR Non-Afr. 71 > OR = 60 Fijian (test code mL/min/1.73m2 = 2775) EGFR 83 > OR = 60 Fijian (test code mL/min/1.73m2 = 99290-4) BUN/creatinine NOT APPLICABLE 6- 22 (calc) ratio (test code = 3097-3) Sodium (test code = 138 mmol/L 893-123 3057-2) Potassium (test 4.0 mmol/L 3.5-5.3 code = 2823-3) Chloride (test code 105 mmol/L 98-110 = 2075-0) CO2 (test code = 20 mmol/L 20-32 2027-9) Calcium (test code 9.5 mg/dL 8.6-10.2 = 54620-9) Protein (test code 6.5 g/dL 6.1-8.1 = 2885-2) Albumin, S (test 3.9 g/dL 3.6-5.1 code = 1751-7) Globulin, total 2.6 1.9- 3.7 g/dL (test code = (calc) 48809-1) Albumin/globulin 1.5 1.0- 2.5 (calc) ratio (test code = 1759-0) Total bilirubin 0.3 mg/dL 0.2-1.2 (test code = 1975-2) Alkaline 96 U/L 33-115 phosphatase (test code = 6768-6) AST (test code = 17 U/L 10-35 1920-8) ALT (test code = 10 U/L 6-29 1742-6) JAYY (test code = FASTING: UNKNOWN JAYY) RAC (test code = Performing RAC) Organization Information: Site ID: A Name: [facility] Lab Address: [address] [place] [id number] Director: Thor Samuels [id number] 08:04:00 Test Item Value Reference Range Interpretation Comments T4, free (test code 1.0 ng/dL 0.8-1.8 = 3024-7) JAYY (test code = FASTING: UNKNOWN JAYY) RAC (test code = Performing Organization RAC) Information: Site ID: A Name: [facility] Address: [address] [place] [phone] Director: Thor JohnsonThyroid stimulating [id number] 08:04:00 Test Item Value Reference Range Interpretation Comments TSH (test code 3.02 mIU/L = 3016-3) Reference Range > or = 20 Years 0.40-4.50 Range s First trimester 0.26-2.66 Second trimeste r 0.55-2.73 Third trimester 0.43-2.91 JAYY (test code FASTING: UNKNOWN = JAYY) RAC (test code Performing = RAC) Organization Information: Site ID: A Name: [facility] Address: [address] [place] [id number] Director: Thor Busch MethodistVitamin D 25 hydroxy [id number] 08:04:00 Test Item Value Reference Range Interpretation Comments Vitamin D, 45 ng/mL 30-100 Vitamin D Statu s 25-hydroxy 25-OH Vitami n D: (test code = Deficiency: 1988-06) <20 ng/mLInsufficie ncy: 20 - 29 ng/mLOptimal: > or = 30 ng/mL For 25-OH Vitamin D testi ng on patients on D2-supplementat ion and patients fo r whom quantitation of D2 and D3 fraction s is required, the QuestAssureD(TM )25-OH VIT D, (D2,D3), LC/MS/MS is recommended: or alonso code 03214 (pat ients >2yrs). For mor e information on this test, go to:http://educa tion.Echovox/f [email or web address]/WGV633(This link is being provid ed for informational/e ducati onal purposes only.)NO COLLEC TION DATE RECEIVED. WE HAVE USEDTHE DA TE THE SPECIMEN WAS RE CEIVED BY DANAE WILSON THE COLLECTION DATE. IF THISIS INCOR RECT, PLEASE CONTACT CLIENT SERVICES.PHONE NUMBER: [phone] JAYY (test code FASTING: UNKNOWN = JAYY) RAC (test code Performing = RAC) Organization Information: Site ID: RGA Name: [facility] Address: [address] [place] [address] Director: Thor Busch MethodistCortisol level, [id number] 08:04:00 Test Item Value Reference Range Interpretation Comments Cortisol, AM (test 3.9 mcg/dL L Reference code = 9813-7) Range8 a.m. (7-9 a.m.) Specimen: 4.0-22.0 JAYY (test code = JAYY) FASTING: UNKNOWN RAC (test code = RAC) Performing Organization Information: Site ID: RGA Name: [facility] Address: [address] [place] [address] Director: Thor Zamorano Lab Interpretation Abnormal (test code = 62531-6) Narayan MethoddeweyCandida sp DNA [Presence] in Vaginal fluid by Probe and target amplification [id number] 00:00:00 Test Item Value Reference Range Interpretation Comments ye albicans by real-time PCR negative (test code = ye albicans by real-time PCR) ye tropicalis by real-time PCR negative (test code = ye tropicalis by real-time PCR) ye parapsilosis by real-time negative PCR (test code = ye parapsilosis by real-time PCR) ye glabrata by real-time PCR negative (test code = ye glabrata by real-time PCR) [facility] HospitalUrinalysis macro (dipstick) panel - [id number] 13:42:54 Test Item Value Reference Range Interpretation Comments Leukocytes (test code = Leukocytes) Negative Nitrite (test code = Nitrite) negative Urobilinogen (test code = .2 Urobilinogen) Protein (test code = Protein) Negative pH (test code = pH) 7.0 Blood (test code = Blood) Negative Specific [place] (test code = 1.015 Specific [place]) Ketone (test code = Ketone) Trace Bilirubin (test code = Bilirubin) Small Glucose (test code = Glucose) Negative Appearance (test code = Appearance) Clear Color (test code = Color) Yellow [facility] HospitalUrinalysis macro (dipstick) panel - [id number] 13:42:54 Test Item Value Reference Range Interpretation Comments Leukocytes (test code = Leukocytes) Negative Nitrite (test code = Nitrite) negative Urobilinogen (test code = .2 Urobilinogen) Protein (test code = Protein) Negative pH (test code = pH) 7.0 Blood (test code = Blood) Negative Specific [place] (test code = 1.015 Specific [place]) Ketone (test code = Ketone) Trace Bilirubin (test code = Bilirubin) Small Glucose (test code = Glucose) Negative Appearance (test code = Appearance) Clear Color (test code = Color) Yellow [facility] HospitalUrinalysis macro (dipstick) panel - [id number] 10:18:17 Test Item Value Reference Range Interpretation Comments Leukocytes (test code = Leukocytes) Negative Nitrite (test code = Nitrite) negative Urobilinogen (test code = .2 Urobilinogen) Protein (test code = Protein) Negative pH (test code = pH) 6.5 Blood (test code = Blood) Negative Specific [place] (test code = 1.010 Specific [place]) Ketone (test code = Ketone) Negative Bilirubin (test code = Bilirubin) Negative Glucose (test code = Glucose) Negative Appearance (test code = Appearance) Clear Color (test code = Color) Yellow [facility] HospitalUrinalysis macro (dipstick) panel - [id number] 10:18:17 Test Item Value Reference Range Interpretation Comments Leukocytes (test code = Leukocytes) Negative Nitrite (test code = Nitrite) negative Urobilinogen (test code = .2 Urobilinogen) Protein (test code = Protein) Negative pH (test code = pH) 6.5 Blood (test code = Blood) Negative Specific [place] (test code = 1.010 Specific [place]) Ketone (test code = Ketone) Negative Bilirubin (test code = Bilirubin) Negative Glucose (test code = Glucose) Negative Appearance (test code = Appearance) Clear Color (test code = Color) Yellow [facility] HospitalUrinalysis macro (dipstick) panel - [id number] 10:18:17 Test Item Value Reference Range Interpretation Comments Leukocytes (test code = Leukocytes) Negative Nitrite (test code = Nitrite) negative Urobilinogen (test code = .2 Urobilinogen) Protein (test code = Protein) Negative pH (test code = pH) 6.5 Blood (test code = Blood) Negative Specific [place] (test code = 1.010 Specific [place]) Ketone (test code = Ketone) Negative Bilirubin (test code = Bilirubin) Negative Glucose (test code = Glucose) Negative Appearance (test code = Appearance) Clear Color (test code = Color) Yellow [facility] HospitalUrinalysis macro (dipstick) panel - [id number] 10:04:32 Test Item Value Reference Range Interpretation Comments Leukocytes (test code = Leukocytes) Negative Nitrite (test code = Nitrite) negative Urobilinogen (test code = .2 Urobilinogen) Protein (test code = Protein) Negative pH (test code = pH) 6.5 Blood (test code = Blood) Negative Specific [place] (test code = 1.010 Specific [place]) Ketone (test code = Ketone) Negative Bilirubin (test code = Bilirubin) Negative Glucose (test code = Glucose) Negative Appearance (test code = Appearance) Clear Color (test code = Color) Yellow [facility] HospitalUrinalysis macro (dipstick) panel - [id number] 10:04:32 Test Item Value Reference Range Interpretation Comments Leukocytes (test code = Leukocytes) Negative Nitrite (test code = Nitrite) negative Urobilinogen (test code = .2 Urobilinogen) Protein (test code = Protein) Negative pH (test code = pH) 6.5 Blood (test code = Blood) Negative Specific [place] (test code = 1.010 Specific [place]) Ketone (test code = Ketone) Negative Bilirubin (test code = Bilirubin) Negative Glucose (test code = Glucose) Negative Appearance (test code = Appearance) Clear Color (test code = Color) Yellow [facility] HospitalUrinalysis macro (dipstick) panel - [id number] 10:04:32 Test Item Value Reference Range Interpretation Comments Leukocytes (test code = Leukocytes) Negative Nitrite (test code = Nitrite) negative Urobilinogen (test code = .2 Urobilinogen) Protein (test code = Protein) Negative pH (test code = pH) 6.5 Blood (test code = Blood) Negative Specific [place] (test code = 1.010 Specific [place]) Ketone (test code = Ketone) Negative Bilirubin (test code = Bilirubin) Negative Glucose (test code = Glucose) Negative Appearance (test code = Appearance) Clear Color (test code = Color) Yellow [facility] HospitalBacteria identified in Urine by [id number] 00:00:00Bacteria Ur [facility] sensitivity testing, [id number] 00:00:00 Test Item Value Reference Range Interpretation Comments Gentamicin [Susceptibility] by Minimum <4 inhibitory concentration (VIVIENNE) (test code = 267-5) Ampicillin [Susceptibility] by Minimum >16 inhibitory concentration (VIVIENNE) (test code = 28-1) Cefazolin [Susceptibility] by Minimum <8 inhibitory concentration (VIVIENNE) (test code = 76-0) Trimethoprim+Sulfamethoxazole =2/38 [Susceptibility] by Minimum inhibitory concentration (VIVIENNE) (test code = 516-5) Tetracycline [Susceptibility] by <4 Minimum inhibitory concentration (VIVIENNE) (test code = 496-0) Amoxicillin+Clavulanate =8/4 [Susceptibility] by Minimum inhibitory concentration (VIVIENNE) (test code = 20-8) Tobramycin [Susceptibility] by Minimum <4 inhibitory concentration (VIVIENNE) (test code = 508-2) Nitrofurantoin [Susceptibility] by <32 Minimum inhibitory concentration (VIVIENNE) (test code = 363-2) Cefotaxime [Susceptibility] by Minimum <2 inhibitory concentration (VIVIENNE) (test code = 108-1) Cefepime [Susceptibility] by Minimum <8 inhibitory concentration (VIVIENNE) (test code = 6644-9) Levofloxacin [Susceptibility] by >4 Minimum inhibitory concentration (VIVIENNE) (test code = 83763-6) Piperacillin+Tazobactam <16 [Susceptibility] by Minimum inhibitory concentration (VIVIENNE) (test code = 412-7) Ceftazidime [Susceptibility] by Minimum <1 inhibitory concentration (VIVIENNE) (test code = 133-9) Ceftriaxone [Susceptibility] by Minimum <8 inhibitory concentration (VIVIENNE) (test code = 141-2) Ciprofloxacin [Susceptibility] by >2 Minimum inhibitory concentration (VIVIENNE) (test code = 185-9) Imipenem [Susceptibility] by Minimum <4 inhibitory concentration (VIVIENNE) (test code = 279-0) Ampicillin+Sulbactam [Susceptibility] =16/8 by Minimum inhibitory concentration (VIVIENNE) (test code = 32-3) Ertapenem [Susceptibility] by Minimum <2 inhibitory concentration (VIVIENNE) (test code = 31036-7) Aztreonam [Susceptibility] by Minimum <8 inhibitory concentration (VIVIENNE) (test code = 44-8) Cefuroxime [Susceptibility] by Minimum <4 inhibitory concentration (VIVIENNE) (test code = 42994-3) Meropenem [Susceptibility] by Minimum <4 inhibitory concentration (VIVIENNE) (test code = 6652-2) [facility] HospitalBacteria identified in Urine by [id number] 00:00:00Bacteria Ur [facility] sensitivity [facility], [id number] 00:00:00 Test Item Value Reference Range Interpretation Comments Gentamicin [Susceptibility] by Minimum <4 inhibitory concentration (VIVIENNE) (test code = 267-5) Ampicillin [Susceptibility] by Minimum >16 inhibitory concentration (VIVIENNE) (test code = 28-1) Cefazolin [Susceptibility] by Minimum <8 inhibitory concentration (VIIVENNE) (test code = 76-0) Trimethoprim+Sulfamethoxazole =2/38 [Susceptibility] by Minimum inhibitory concentration (VIVIENNE) (test code = 516-5) Tetracycline [Susceptibility] by <4 Minimum inhibitory concentration (VIVIENNE) (test code = 496-0) Amoxicillin+Clavulanate =8/4 [Susceptibility] by Minimum inhibitory concentration (VIVIENNE) (test code = 20-8) Tobramycin [Susceptibility] by Minimum <4 inhibitory concentration (VIVIENNE) (test code = 508-2) Nitrofurantoin [Susceptibility] by <32 Minimum inhibitory concentration (VIVIENNE) (test code = 363-2) Cefotaxime [Susceptibility] by Minimum <2 inhibitory concentration (VIVIENNE) (test code = 108-1) Cefepime [Susceptibility] by Minimum <8 inhibitory concentration (VIVIENNE) (test code = 6644-9) Levofloxacin [Susceptibility] by >4 Minimum inhibitory concentration (VIVIENNE) (test code = 63480-6) Piperacillin+Tazobactam <16 [Susceptibility] by Minimum inhibitory concentration (VIVIENNE) (test code = 412-7) Ceftazidime [Susceptibility] by Minimum <1 inhibitory concentration (VIVIENNE) (test code = 133-9) Ceftriaxone [Susceptibility] by Minimum <8 inhibitory concentration (VIVIENNE) (test code = 141-2) Ciprofloxacin [Susceptibility] by >2 Minimum inhibitory concentration (VIVIENNE) (test code = 185-9) Imipenem [Susceptibility] by Minimum <4 inhibitory concentration (VIVIENNE) (test code = 279-0) Ampicillin+Sulbactam [Susceptibility] =16/8 by Minimum inhibitory concentration (VIVIENNE) (test code = 32-3) Ertapenem [Susceptibility] by Minimum <2 inhibitory concentration (VIVIENNE) (test code = 67113-7) Aztreonam [Susceptibility] by Minimum <8 inhibitory concentration (VIVIENNE) (test code = 44-8) Cefuroxime [Susceptibility] by Minimum <4 inhibitory concentration (VIVIENNE) (test code = 41860-2) Meropenem [Susceptibility] by Minimum <4 inhibitory concentration (VIVIENNE) (test code = 6652-2) [facility] GroupMicroscopic observation [Identifier] in Cervix by Cyto stain.thin [id number] 00:00:00 Test Item Value Reference Range Interpretation Comments Human papilloma virus positive 16+18+31+33+35+39+45+51+52+56+58+59+ 68 DNA [Presence] in Cervix by Probe and signal amplification method (test code = 24588-6) results (test code = results) [facility] GroupBacteria identified in Urine by [id number] 02:14:00 Test Item Value Reference Range Interpretation Comments Bacteria identified in no growth at 48 hrs. Urine by Culture (test code = 630-4) [facility] GroupBacteria identified in Urine by [id number] 02:14:00 Test Item Value Reference Range Interpretation Comments Bacteria identified in no growth at 48 hrs. Urine by Culture (test code = 630-4) [facility] [id number] 08:01:00 Test Item Value Reference Range Interpretation Comments MAGNESIUM (BEAKER) 1.8 mg/dL 1.6-2.6 Specimen moderately (test code = 627) hemolyzed BASIC METABOLIC [id number] 08:01:00 Test Item Value Reference Range Interpretation Comments SODIUM (BEAKER) 137 meq/L 136-145 (test code = 381) POTASSIUM (BEAKER) 4.5 meq/L 3.5-5.1 Specimen moderately (test code = 379) hemolyzed CHLORIDE (BEAKER) 109 meq/L 98-107 H (test code = 382) CO2 (BEAKER) (test 19 meq/L 22-29 L code = 355) BLOOD UREA NITROGEN 9 mg/dL 7-21 (BEAKER) (test code = 354) CREATININE (BEAKER) 0.71 mg/dL 0.57-1.25 Specimen moderately (test code = 358) hemolyzed GLUCOSE RANDOM 85 mg/dL 70-105 (BEAKER) (test code = 652) CALCIUM (BEAKER) 9.0 mg/dL 8.4-10.2 (test code = 697) EGFR (BEAKER) (test 88 mL/min/1.73 ESTIMA GURVINDER GFR IS code = 1092) sq m NOT ACCURATE CREATININE CLEARANCE IN PREDICTING GLOMERULAR FILTRATION RATE . ESTIMATED GFR I S NOT APPLICABLE FOR DIALYSIS PATIEN TS. CBC W/PLT COUNT & AUTO [id number] 05:59:00 Test Item Value Reference Range Interpretation Comments WHITE BLOOD CELL COUNT (BEAKER) 7.3 K/ L 3.5-10.5 (test code = 775) RED BLOOD CELL COUNT (BEAKER) 4.15 M/ L 3.93-5.22 (test code = 761) HEMOGLOBIN (BEAKER) (test code = 12.4 GM/DL 11.2-15.7 410) HEMATOCRIT (BEAKER) (test code = 38.4 % 34.1-44.9 411) MEAN CORPUSCULAR VOLUME (BEAKER) 92.5 fL 79.4-94.8 (test code = 753) MEAN CORPUSCULAR HEMOGLOBIN 29.9 pg 25.6-32.2 (BEAKER) (test code = 751) MEAN CORPUSCULAR HEMOGLOBIN CONC 32.3 GM/DL 32.2-35.5 (BEAKER) (test code = 752) RED CELL DISTRIBUTION WIDTH 14.4 % 11.7-14.4 (BEAKER) (test code = 412) PLATELET COUNT (BEAKER) (test 275 K/CU MM 150-450 code = 756) MEAN PLATELET VOLUME (BEAKER) 8.9 fL 9.4-12.3 L (test code = 754) NUCLEATED RED BLOOD CELLS 0 /100 WBC 0-0 (BEAKER) (test code = 413) NEUTROPHILS RELATIVE PERCENT 49 % (BEAKER) (test code = 429) LYMPHOCYTES RELATIVE PERCENT 41 % (BEAKER) (test code = 430) MONOCYTES RELATIVE PERCENT 7 % (BEAKER) (test code = 431) EOSINOPHILS RELATIVE PERCENT 3 % (BEAKER) (test code = 432) BASOPHILS RELATIVE PERCENT 0 % (BEAKER) (test code = 437) NEUTROPHILS ABSOLUTE COUNT 3.54 K/ L 1.56-6.13 (BEAKER) (test code = 670) LYMPHOCYTES ABSOLUTE COUNT 2.99 K/ L 1.18-3.74 (BEAKER) (test code = 414) MONOCYTES ABSOLUTE COUNT (BEAKER) 0.52 K/ L 0.24-0.36 H (test code = 415) EOSINOPHILS ABSOLUTE COUNT 0.20 K/ L 0.04-0.36 (BEAKER) (test code = 416) BASOPHILS ABSOLUTE COUNT (BEAKER) 0.03 K/ L 0.01-0.08 (test code = 417) IMMATURE GRANULOCYTES-RELATIVE 0 % 0-1 PERCENT (BEAKER) (test code = 2801) [id number] 07:04:00 Test Item Value Reference Range Interpretation Comments MAGNESIUM (BEAKER) (test code = 1.8 mg/dL 1.6-2.6 627) BASIC METABOLIC [id number] 07:04:00 Test Item Value Reference Range Interpretation Comments SODIUM (BEAKER) 139 meq/L 136-145 (test code = 381) POTASSIUM (BEAKER) 4.5 meq/L 3.5-5.1 (test code = 379) CHLORIDE (BEAKER) 110 meq/L 98-107 H (test code = 382) CO2 (BEAKER) (test 23 meq/L 22-29 code = 355) BLOOD UREA NITROGEN 13 mg/dL 7-21 (BEAKER) (test code = 354) CREATININE (BEAKER) 0.76 mg/dL 0.57-1.25 (test code = 358) GLUCOSE RANDOM 100 mg/dL 70-105 (BEAKER) (test code = 652) CALCIUM (BEAKER) 9.2 mg/dL 8.4-10.2 (test code = 697) EGFR (BEAKER) (test 82 mL/min/1.73 ESTIMA GURVINDER GFR IS code = 1092) sq m NOT ACCURATE CREATININE CLEARANCE IN PREDICTING GLOMERULAR FILTRATION RATE . ESTIMATED GFR I S NOT APPLICABLE FOR DIALYSIS PATIEN TS. CORTISOL,60 [id number] 07:01:00 Test Item Value Reference Range Interpretation Comments CORTISOL BASELINE NETWORKED < mcg/dL (BEAKER) (test code = 2307) CORTISOL 30 MINUTE NETWORKED 6.0 mcg/dL (BEAKER) (test code = 2308) CORTISOL, 60 MINUTE (BEAKER) (test 7.0 ug/dL code = 1805) ACTH STIMULATION TEST INTERPRETATION GUIDELINES(Synonyms: Cortrosyn Test, Cosyntropin or Corticotropin Stimulation Test)Adenocorticotropic hormone (ACTH)is a tropic hormone, made in [...] (>9mcg/dL) 2. Intermediate Survival: Low basal cortisol (<34 mcg/dL) and low response to ACTH (<or=9 mcg/dL) OR High basal cortisol (>34 mcg/dL) or high ACTH response (>9 mcg/dL) 3.Poor Survival: High basal cortisol (>34 mcg/dL) and low ACTH response (<or=9 mcg/dL).Treatment of patients with relative adrenal dysfunction may be indicated based on test results and the cli nical condition of the patient. Additional information, including [...] serum cortisollevel 60 minutes after cosyntropin administration.CORTISOL,30 MIN 2018-11-15 07:01:00 Test Item Value Reference Range Interpretation Comments CORTISOL BASELINE NETWORKED < mcg/dL (BEAKER) (test code = 2307) CORTISOL, 30 MINUTE (BEAKER) (test 6.0 ug/dL code = 1804) ACTH STIMULATION TEST INTERPRETATION GUIDELINES(Synonyms: Cortrosyn Test, Cosyntropin or Corticotropin Stimulation Test)Adenocorticotropic hormone (ACTH)is a tropic hormone, made in [...] a study by Padilla et al (MIGUEL 2000,283(8):9447-86), the ACTH Stimulation Test provides important prognostic information. This study defined 3 groups of patients with sepsis or septic shock: 1. Good Survival: Low basal cortisol (<or=34 mcg/dL) and high ACTH response (>9mcg/dL) 2. Intermediate Survival: Low basal cortisol (<34 mcg/dL) and low response to ACTH (<or=9 mcg/dL) OR High basal cortisol (>34 mcg/dL) or high ACTH response (>9 mcg/dL) 3.Poor Survival: High basal cortisol (>34 mcg/dL) and low ACTH response (<or=9 mcg/dL).Treatment of patients with relative adrenal dysfunction may be indicated based on test results and the cli nical condition of the patient. Additional information, including [...] after cosyntropin administration.CBC W/PLT COUNT & AUTO [id number] 05:46:00 Test Item Value Reference Range Interpretation Comments WHITE BLOOD CELL COUNT (BEAKER) 6.0 K/ L 3.5-10.5 (test code = 775) RED BLOOD CELL COUNT (BEAKER) 4.25 M/ L 3.93-5.22 (test code = 761) HEMOGLOBIN (BEAKER) (test code = 12.6 GM/DL 11.2-15.7 410) HEMATOCRIT (BEAKER) (test code = 40.4 % 34.1-44.9 411) MEAN CORPUSCULAR VOLUME (BEAKER) 95.1 fL 79.4-94.8 H (test code = 753) MEAN CORPUSCULAR HEMOGLOBIN 29.6 pg 25.6-32.2 (BEAKER) (test code = 751) MEAN CORPUSCULAR HEMOGLOBIN CONC 31.2 GM/DL 32.2-35.5 L (BEAKER) (test code = 752) RED CELL DISTRIBUTION WIDTH 14.6 % 11.7-14.4 H (BEAKER) (test code = 412) PLATELET COUNT (BEAKER) (test 223 K/CU MM 150-450 code = 756) MEAN PLATELET VOLUME (BEAKER) 8.6 fL 9.4-12.3 L (test code = 754) NUCLEATED RED BLOOD CELLS 0 /100 WBC 0-0 (BEAKER) (test code = 413) NEUTROPHILS RELATIVE PERCENT 50 % (BEAKER) (test code = 429) LYMPHOCYTES RELATIVE PERCENT 37 % (BEAKER) (test code = 430) MONOCYTES RELATIVE PERCENT 8 % (BEAKER) (test code = 431) EOSINOPHILS RELATIVE PERCENT 5 % (BEAKER) (test code = 432) BASOPHILS RELATIVE PERCENT 1 % (BEAKER) (test code = 437) NEUTROPHILS ABSOLUTE COUNT 3.01 K/ L 1.56-6.13 (BEAKER) (test code = 670) LYMPHOCYTES ABSOLUTE COUNT 2.24 K/ L 1.18-3.74 (BEAKER) (test code = 414) MONOCYTES ABSOLUTE COUNT (BEAKER) 0.45 K/ L 0.24-0.36 H (test code = 415) EOSINOPHILS ABSOLUTE COUNT 0.29 K/ L 0.04-0.36 (BEAKER) (test code = 416) BASOPHILS ABSOLUTE COUNT (BEAKER) 0.03 K/ L 0.01-0.08 (test code = 417) IMMATURE GRANULOCYTES-RELATIVE 0 % 0-1 PERCENT (BEAKER) (test code = 2801) CORTISOL,[id number] 19:10:00 Test Item Value Reference Range Interpretation Comments CORTISOL, BASELINE (BEAKER) (test < ug/dL code = 1803) ACTH STIMULATION TEST INTERPRETATION GUIDELINES(Synonyms: Cortrosyn Test, Cosyntropin or Corticotropin Stimulation Test)Adenocorticotropic hormone (ACTH)is a tropic hormone, made in [...] (>9mcg/dL) 2. Intermediate Survival: Low basal cortisol (<34 mcg/dL) and low response to ACTH (<or=9 mcg/dL) OR High basal cortisol (>34 mcg/dL) or high ACTH response (>9 mcg/dL) 3.Poor Survival: High basal cortisol (>34 mcg/dL) and low ACTH response (<or=9 mcg/dL).Treatment of patients with relative adrenal dysfunction may be indicated based on test results and the cli nical condition of the patient. Additional information, including [...] Draw serum cortisollevel 60 minutes after cosyntropin administration.MAGNESIUM 2018-11-14 14:23:00 Test Item Value Reference Range Interpretation Comments MAGNESIUM (BEAKER) (test code = 1.8 mg/dL 1.6-2.6 627) BASIC METABOLIC [id number] 14:23:00 Test Item Value Reference Range Interpretation Comments SODIUM (BEAKER) 138 meq/L 136-145 (test code = 381) POTASSIUM (BEAKER) 4.2 meq/L 3.5-5.1 (test code = 379) CHLORIDE (BEAKER) 104 meq/L 98-107 (test code = 382) CO2 (BEAKER) (test 24 meq/L 22-29 code = 355) BLOOD UREA NITROGEN 10 mg/dL 7-21 (BEAKER) (test code = 354) CREATININE (BEAKER) 0.82 mg/dL 0.57-1.25 (test code = 358) GLUCOSE RANDOM 83 mg/dL 70-105 (BEAKER) (test code = 652) CALCIUM (BEAKER) 9.5 mg/dL 8.4-10.2 (test code = 697) EGFR (BEAKER) (test 75 mL/min/1.73 ESTIMA GRUVINDER GFR IS code = 1092) sq m NOT ACCURATE CREATININE CLEARANCE IN PREDICTING GLOMERULAR FILTRATION RATE . ESTIMATED GFR I S NOT APPLICABLE FOR DIALYSIS PATIEN TS. CBC W/PLT COUNT & AUTO [id number] 14:01:00 Test Item Value Reference Range Interpretation Comments WHITE BLOOD CELL COUNT (BEAKER) 7.6 K/ L 3.5-10.5 (test code = 775) RED BLOOD CELL COUNT (BEAKER) 4.59 M/ L 3.93-5.22 (test code = 761) HEMOGLOBIN (BEAKER) (test code = 13.5 GM/DL 11.2-15.7 410) HEMATOCRIT (BEAKER) (test code = 43.0 % 34.1-44.9 411) MEAN CORPUSCULAR VOLUME (BEAKER) 93.7 fL 79.4-94.8 (test code = 753) MEAN CORPUSCULAR HEMOGLOBIN 29.4 pg 25.6-32.2 (BEAKER) (test code = 751) MEAN CORPUSCULAR HEMOGLOBIN CONC 31.4 GM/DL 32.2-35.5 L (BEAKER) (test code = 752) RED CELL DISTRIBUTION WIDTH 14.5 % 11.7-14.4 H (BEAKER) (test code = 412) PLATELET COUNT (BEAKER) (test 262 K/CU MM 150-450 code = 756) MEAN PLATELET VOLUME (BEAKER) 8.5 fL 9.4-12.3 L (test code = 754) NUCLEATED RED BLOOD CELLS 0 /100 WBC 0-0 (BEAKER) (test code = 413) NEUTROPHILS RELATIVE PERCENT 52 % (BEAKER) (test code = 429) LYMPHOCYTES RELATIVE PERCENT 37 % (BEAKER) (test code = 430) MONOCYTES RELATIVE PERCENT 6 % (BEAKER) (test code = 431) EOSINOPHILS RELATIVE PERCENT 4 % (BEAKER) (test code = 432) BASOPHILS RELATIVE PERCENT 0 % (BEAKER) (test code = 437) NEUTROPHILS ABSOLUTE COUNT 3.94 K/ L 1.56-6.13 (BEAKER) (test code = 670) LYMPHOCYTES ABSOLUTE COUNT 2.82 K/ L 1.18-3.74 (BEAKER) (test code = 414) MONOCYTES ABSOLUTE COUNT (BEAKER) 0.46 K/ L 0.24-0.36 H (test code = 415) EOSINOPHILS ABSOLUTE COUNT 0.30 K/ L 0.04-0.36 (BEAKER) (test code = 416) BASOPHILS ABSOLUTE COUNT (BEAKER) 0.02 K/ L 0.01-0.08 (test code = 417) IMMATURE GRANULOCYTES-RELATIVE 0 % 0-1 PERCENT (BEAKER) (test code = 2801) OVA AND PARASITE [id number] 12:03:00 Test Item Value Reference Range Interpretation Comments DIRECT SMEAR - O\\T\\P No ova or parasites No ova or parasites (BEAKER) (test code = seen seen 196) CONCENTRATE SMEAR - No ova or parasites No ova or parasites O\\T\\P (BEAKER) (test seen seen code = 247) TRICHROME SMEAR - No ova or parasites No ova or parasites O\\T\\P (BEAKER) (test seen seen code = 248) [id number] 05:30:00 Test Item Value Reference Range Interpretation Comments MAGNESIUM (BEAKER) (test code = 1.9 mg/dL 1.6-2.6 627) BASIC METABOLIC [id number] 05:30:00 Test Item Value Reference Range Interpretation Comments SODIUM (BEAKER) 143 meq/L 136-145 (test code = 381) POTASSIUM (BEAKER) 4.2 meq/L 3.5-5.1 (test code = 379) CHLORIDE (BEAKER) 109 meq/L 98-107 H (test code = 382) CO2 (BEAKER) (test 28 meq/L 22-29 code = 355) BLOOD UREA NITROGEN 7 mg/dL 7-21 (BEAKER) (test code = 354) CREATININE (BEAKER) 0.70 mg/dL 0.57-1.25 (test code = 358) GLUCOSE RANDOM 80 mg/dL 70-105 (BEAKER) (test code = 652) CALCIUM (BEAKER) 9.2 mg/dL 8.4-10.2 (test code = 697) EGFR (BEAKER) (test 90 mL/min/1.73 ESTIMA GURVINDER GFR IS code = 1092) sq m NOT ACCURATE CREATININE CLEARANCE IN PREDICTING GLOMERULAR FILTRATION RATE . ESTIMATED GFR I S NOT APPLICABLE FOR DIALYSIS PATIEN TS. CBC W/PLT COUNT & AUTO [id number] 04:58:00 Test Item Value Reference Range Interpretation Comments WHITE BLOOD CELL COUNT (BEAKER) 6.7 K/ L 3.5-10.5 (test code = 775) RED BLOOD CELL COUNT (BEAKER) 4.58 M/ L 3.93-5.22 (test code = 761) HEMOGLOBIN (BEAKER) (test code = 13.5 GM/DL 11.2-15.7 410) HEMATOCRIT (BEAKER) (test code = 43.8 % 34.1-44.9 411) MEAN CORPUSCULAR VOLUME (BEAKER) 95.6 fL 79.4-94.8 H (test code = 753) MEAN CORPUSCULAR HEMOGLOBIN 29.5 pg 25.6-32.2 (BEAKER) (test code = 751) MEAN CORPUSCULAR HEMOGLOBIN CONC 30.8 GM/DL 32.2-35.5 L (BEAKER) (test code = 752) RED CELL DISTRIBUTION WIDTH 14.7 % 11.7-14.4 H (BEAKER) (test code = 412) PLATELET COUNT (BEAKER) (test 242 K/CU MM 150-450 code = 756) MEAN PLATELET VOLUME (BEAKER) 8.4 fL 9.4-12.3 L (test code = 754) NUCLEATED RED BLOOD CELLS 0 /100 WBC 0-0 (BEAKER) (test code = 413) NEUTROPHILS RELATIVE PERCENT 49 % (BEAKER) (test code = 429) LYMPHOCYTES RELATIVE PERCENT 40 % (BEAKER) (test code = 430) MONOCYTES RELATIVE PERCENT 7 % (BEAKER) (test code = 431) EOSINOPHILS RELATIVE PERCENT 4 % (BEAKER) (test code = 432) BASOPHILS RELATIVE PERCENT 0 % (BEAKER) (test code = 437) NEUTROPHILS ABSOLUTE COUNT 3.25 K/ L 1.56-6.13 (BEAKER) (test code = 670) LYMPHOCYTES ABSOLUTE COUNT 2.68 K/ L 1.18-3.74 (BEAKER) (test code = 414) MONOCYTES ABSOLUTE COUNT (BEAKER) 0.44 K/ L 0.24-0.36 H (test code = 415) EOSINOPHILS ABSOLUTE COUNT 0.28 K/ L 0.04-0.36 (BEAKER) (test code = 416) BASOPHILS ABSOLUTE COUNT (BEAKER) 0.03 K/ L 0.01-0.08 (test code = 417) IMMATURE GRANULOCYTES-RELATIVE 0 % 0-1 PERCENT (BEAKER) (test code = 2801) TISSUE [id number] 15:51:00Surgical Pathology Report Case: [id number] Authorizing Provider: Bartolo Quinn Collected: 11/10/2018 1543 Ordering Location: [address] Received: 11/12/2018 0813 Service Pathologist: Linda Mullen MD Specimens: A) - Biopsy, Terminal Ileum, Neoterminal Ileum biopsy B) -Ileum, Ileocolonic Anastomosis biopsy C) - Large Intestine, Colon - Right/Ascending, Right colon biopsy D) - LargeIntestine, Colon - Transverse, Transverse colon biopsy E) - Large Intestine, Colon - Left/Descending, Left colon biopsy A. NEOTERMINAL ILEUM, BIOPSY:- SUPERFICIAL FRAGMENTS OF ILEAL MUCOSA WITH NORMAL [...] CRYPT DISTORTION Signing Pathologist Direct Phone Line: [phone] signed by Linda Mullen MD on 11/12/2018 at 3:51 PMPatient's history of Crohn's disease is noted. The current sampling shows no significant active or chronic colitis. This may represent complete histologic resolution following treatment. Clinical and endoscopic correlation is recommended.[id number] and postop diagnosis: diarrhea A. Neoterminal ileum [...] are submitted in toto in E1. CG/pl Performed.STOOL CULTURE + SHIGA [id number] 08:26:00 Test Item Value Reference Range Interpretation Comments CULTURE (BEAKER) No Salmonella, Shigella (test code = 1095) or Campylobacter isolated GI PATHOGEN PROFILE BY [id number] 08:20:00 Test Item Value Reference Range Interpretation Comments CAMPYLOBACTER (PCR) (test code = Not detected Not detected 20151103) PLESIOMONAS SHIGELLOIDES (PCR) Not detected Not detected (test code = 20151107) SALMONELLA (PCR) (test code = Not detected Not detected ) YERSINIA ENTEROCOLITICA (PCR) Not detected Not detected (test code = 20151130) VIBRIO CHOLERAE (PCR) (test code Not detected Not detected = 20151201) ENTEROAGGREGATIVE E. COLI (EAEC) Not detected Not detected BY PCR (test code = 20151202) ENTEROPATHOGENIC E. COLI (EPEC) Not detected Not detected BY PCR (test code = 20151203) ENTEROTOXIGENIC E. COLI (ETEC) Not detected Not detected LT/ST BY PCR (test code = 20151204) SHIGA-LIKE TOXIN-PRODUCING E. Not detected Not detected COLI (STEC) STX1/STX2 (test code = 20151205) E. COLI O157 (PCR) (test code = Not detected 20151206) SHIGELLA/ENTEROINVASIVE E. COLI Not detected Not detected (EIEC) BY PCR (test code = 20151207) CRYPTOSPORIDIUM (PCR) (test code Not detected Not detected = 20151208) CYCLOSPORA CAYETANENSIS (PCR) Not detected Not detected (test code = ) ENTAMOEBA HISTOLYTICA (PCR) Not detected Not detected (test code = 20151231) GIARDIA LAMBLIA (PCR) (test code Not detected Not detected = 20160101) ADENOVIRUS F 40/41 (PCR) (test Not detected Not detected code = 20160102) ASTROVIRUS (PCR) (test code = Not detected Not detected 20160103) NOROVIRUS GI/GII (PCR) (test Not detected Not detected code = 20160104) ROTAVIRUS A (PCR) (test code = Not detected Not detected 20160105) SAPOVIRUS (I, II, IV, V) BY PCR Not detected Not detected (test code = 20160106) VIBRIO (PARAHAEMOLYTICUS, Not detected Not detected VULNIFICUS) (test code = ) Other viruses, parasites and bacteria not targeted by this PCR panel cannot be excluded; therefore clinical correlation and follow up of serology, culture results, and other molecular studies is required. The results are not intended to be used as the sole means for clinical diagnosis or patient management decisions. This sample was tested at the [facility] Molecular Diagnostics Laboratory using the [place] [facility]astrointestinal Panel. It is FDA cleared and has been verified and approved by the [facility] Molecular Diagnostics [facility] for clinical use. This laboratory is CLIA-certified and College ofAmerican Pathologists (CAP)-accredited to perform high complexity testing.CORTISOL 2018-11-09 06:24:00 Test Item Value Reference Range Interpretation Comments CORTISOL, TOTAL (BEAKER) (test code = < ug/dL 3.7-19.4 L 2755) BASIC METABOLIC [id number] 05:50:00 Test Item Value Reference Range Interpretation Comments SODIUM (BEAKER) 142 meq/L 136-145 (test code = 381) POTASSIUM (BEAKER) 4.3 meq/L 3.5-5.1 Specimen slightly (test code = 379) hemolyzed CHLORIDE (BEAKER) 114 meq/L 98-107 H (test code = 382) CO2 (BEAKER) (test 21 meq/L 22-29 L code = 355) BLOOD UREA NITROGEN 3 mg/dL 7-21 L (BEAKER) (test code = 354) CREATININE (BEAKER) 0.66 mg/dL 0.57-1.25 Specimen slightly (test code = 358) hemolyzed GLUCOSE RANDOM 84 mg/dL 70-105 (BEAKER) (test code = 652) CALCIUM (BEAKER) 8.6 mg/dL 8.4-10.2 (test code = 697) EGFR (BEAKER) (test 96 mL/min/1.73 ESTIMA GURVINDER GFR IS code = 1092) sq m NOT ACCURATE CREATININE CLEARANCE IN PREDICTING GLOMERULAR FILTRATION RATE . ESTIMATED GFR I S NOT APPLICABLE FOR DIALYSIS PATIEN TS. SHIGA TOXIN [id number] 14:16:00 Test Item Value Reference Range Interpretation Comments SHIGA TOXIN 1 (BEAKER) (test Not detected Not detected code = 2177) SHIGA TOXIN 2 (BEAKER) (test Not detected Not detected code = 2179) STOOL PATH [id number] 10:08:00 Test Item Value Reference Range Interpretation Comments PATHOGEN EXAM CHARGED (BEAKER) (test Done code = 2381) TSH/FREE T4 IF [id number] 05:59:00 Test Item Value Reference Range Interpretation Comments THYROID STIMULATING HORMONE 2.84 uIU/mL 0.35-4.94 (BEAKER) (test code = 772) BASIC METABOLIC [id number] 05:38:00 Test Item Value Reference Range Interpretation Comments SODIUM (BEAKER) 135 meq/L 136-145 L (test code = 381) POTASSIUM (BEAKER) 4.0 meq/L 3.5-5.1 (test code = 379) CHLORIDE (BEAKER) 106 meq/L 98-107 (test code = 382) CO2 (BEAKER) (test 22 meq/L 22-29 code = 355) BLOOD UREA NITROGEN 5 mg/dL 7-21 L (BEAKER) (test code = 354) CREATININE (BEAKER) 0.68 mg/dL 0.57-1.25 (test code = 358) GLUCOSE RANDOM 84 mg/dL 70-105 (BEAKER) (test code = 652) CALCIUM (BEAKER) 8.2 mg/dL 8.4-10.2 L (test code = 697) EGFR (BEAKER) (test 93 mL/min/1.73 ESTIMA GURVINDER GFR IS code = 1092) sq m NOT ACCURATE CREATININE CLEARANCE IN PREDICTING GLOMERULAR FILTRATION RATE . ESTIMATED GFR I S NOT APPLICABLE FOR DIALYSIS PATIEN TS. RAD, ABDOMEN/KUB, 1 VIEW [id number] 14:37:00Reason for exam:->post-obstructive diarrheaShould this be performed at the bedside?->YesFINAL [...] or ileus. Signed: Kehinde Zaman MDReport Verified Date/Time: 11/07/2018 14:37:57 Reading Location: [address] Consult Reading Room CT, [id number] 14:25:00FINAL REPORT TECHNIQUE: CT of the abdomen and pelvis WITH intravenous contrast and WITH oral contrast. Dose modulation, iterative reconstruction, and/or weight- based adjustment of the mA/kV was utilized to [...] characterization. Signed: Cj Lowery MDReport Verified Date/Time: 11/07/2018 14:25:25 Reading Location: [facility] [id number] CT Body Reading Room CBC W/PLT COUNT & AUTO [id number] 13:14:00 Test Item Value Reference Range Interpretation Comments WHITE BLOOD CELL COUNT (BEAKER) 7.1 K/ L 3.5-10.5 (test code = 775) RED BLOOD CELL COUNT (BEAKER) 4.42 M/ L 3.93-5.22 (test code = 761) HEMOGLOBIN (BEAKER) (test code = 13.0 GM/DL 11.2-15.7 410) HEMATOCRIT (BEAKER) (test code = 41.6 % 34.1-44.9 411) MEAN CORPUSCULAR VOLUME (BEAKER) 94.1 fL 79.4-94.8 (test code = 753) MEAN CORPUSCULAR HEMOGLOBIN 29.4 pg 25.6-32.2 (BEAKER) (test code = 751) MEAN CORPUSCULAR HEMOGLOBIN CONC 31.3 GM/DL 32.2-35.5 L (BEAKER) (test code = 752) RED CELL DISTRIBUTION WIDTH 15.2 % 11.7-14.4 H (BEAKER) (test code = 412) PLATELET COUNT (BEAKER) (test 280 K/CU MM 150-450 code = 756) MEAN PLATELET VOLUME (BEAKER) 8.3 fL 9.4-12.3 L (test code = 754) NUCLEATED RED BLOOD CELLS 0 /100 WBC 0-0 (BEAKER) (test code = 413) (CELLAVISION MANUAL DIFF)2018-11-07 13:14:00 Test Item Value Reference Range Interpretation Comments NEUTROPHILS - REL 83 % (CELLAVISION)(BEAKER) (test code = 2816) LYMPHOCYTES - REL 13 % (CELLAVISION)(BEAKER) (test code = 2817) MONOCYTES - REL 4 % (CELLAVISION)(BEAKER) (test code = 2818) NEUTROPHILS - ABS 5.89 K/ul 1.56-6.13 (CELLAVISION)(BEAKER) (test code = 2830) LYMPHOCYTES - ABS 0.92 K/ul 1.18-3.74 L (CELLAVISION)(BEAKER) (test code = 2831) MONOCYTES - ABS 0.28 K/uL 0.24-0.36 (CELLAVISION)(BEAKER) (test code = 2832) TOTAL COUNTED (BEAKER) (test code = 100 1351) RBC MORPHOLOGY (BEAKER) (test code Normal = 762) WBC MORPHOLOGY (BEAKER) (test code Normal = 487) PLT MORPHOLOGY (BEAKER) (test code Normal = 486) ARTIFACT (CELLAVISION)(BEAKER) Present (test code = 3432) PLATELET CONCENTRATION Adequate (CELLAVISION)(BEAKER) (test code = 3438) Received comment: User comments: Slide comments:C. DIFFICILE GDH [id number] 12:53:00 Test Item Value Reference Range Interpretation Comments CDT TOXIN (test code Negative Negative = [id number]) CDT GDH ANTIGEN (test Negative Negative No ind ication of code = [id number]) Clostridi um difficile infection and n o colonization. Discontinue ent kaveh isolation and t herapy. Testing performed by [employer] Rapid Cassette Assay. For GDH, published sensitivity of the assay is 98.7% compared to cytotoxicity testing. For Toxin AB, published sensitivity is 87.8% and specificity 99.4% compared to cytotoxicity testing.Verification of kit performance was done by the [facility] Microbiology Lab prior to clinical use.C-REACTIVE [id number] 06:53:00 Test Item Value Reference Range Interpretation Comments C-REACTIVE PROTEIN (BEAKER) (test 0.37 mg/dL 0.00-0.50 code = 676) BASIC METABOLIC [id number] 06:41:00 Test Item Value Reference Range Interpretation Comments SODIUM (BEAKER) 135 meq/L 136-145 L (test code = 381) POTASSIUM (BEAKER) 4.3 meq/L 3.5-5.1 (test code = 379) CHLORIDE (BEAKER) 104 meq/L 98-107 (test code = 382) CO2 (BEAKER) (test 21 meq/L 22-29 L code = 355) BLOOD UREA NITROGEN 14 mg/dL 7-21 (BEAKER) (test code = 354) CREATININE (BEAKER) 0.83 mg/dL 0.57-1.25 (test code = 358) GLUCOSE RANDOM 160 mg/dL 70-105 H (BEAKER) (test code = 652) CALCIUM (BEAKER) 9.0 mg/dL 8.4-10.2 (test code = 697) EGFR (BEAKER) (test 74 mL/min/1.73 ESTIMA GURVINDER GFR IS code = 1092) sq m NOT ACCURATE CREATININE CLEARANCE IN PREDICTING GLOMERULAR FILTRATION RATE . ESTIMATED GFR I S NOT APPLICABLE FOR DIALYSIS PATIEN TS. CT, [id number] 09:48:00FINAL REPORT CT Abdomen And Pelvis with [...] at T11-12. Soft tissues: Midline incision is well- healed. No evidence of hernia. IMPRESSION: 1. Small amount of peritoneal inflammation in the right hemiabdomen secondaryto recent surgery. The bowel demonstrates no evidence of dilatation or mural hyperemia. No fluid collection. 2. No evidence of incisional hernia. 3. Stable renal cysts. Annual surveillance of the left upper pole cyst with CT is recommended to confirm stability. Signed: Yany Henriquez MDReport Verified Date/Time: 09/20/2018 09:48:51 R, BONE DENSITY [id number] 13:22:00Reason for Exam:- >crohn's disease of both small and large intestine with other complication; intestinal malabsorption,unspecified type, heavy smoker,history of steroid therapy,encounter for imaging to assess osteopeniaFINAL REPORT Exam: Bone mineral density study. History: Osteopenia. Comparison: None Discussion: Evaluation of the left hip, and lumbar spine was performed utilizing DEXA Hologic bone densitometer. The study is technically adequate. Left hip total bone mineral density: 0.636gm/cm2, T-score is -2.5, Z-score is - 2.2. Left hip femoral neck bone mineral density: 0.596gm/cm2, T-score is -2.3, Z-score is -1.7. Lumbar spine total bone mineral density: 0.809gm/cm2, T-score is -2.2,Z-score is -1.6. Impression:1. Osteoporosis of the left hip, fracture risk is high2. Osteopenia of the lumbar spine, fracture risk is increased Least significant change (LSC) for bone mineral density as provided by bell ringer is 0.023 g/cm2 for lumbar spine and [...] Art Bermeo MDReport Verified Date/Time: 09/04/2018 13:22:29 [id number] 07:02:00 Test Item Value Reference Range Interpretation Comments PHOSPHORUS (BEAKER) (test code = 2.9 mg/dL 2.3-4.7 604) [id number] 07:02:00 Test Item Value Reference Range Interpretation Comments MAGNESIUM (BEAKER) (test code = 1.9 mg/dL 1.6-2.6 627) BASIC METABOLIC [id number] 07:02:00 Test Item Value Reference Range Interpretation Comments SODIUM (BEAKER) 139 meq/L 136-145 (test code = 381) POTASSIUM (BEAKER) 4.0 meq/L 3.5-5.1 (test code = 379) CHLORIDE (BEAKER) 108 meq/L 98-107 H (test code = 382) CO2 (BEAKER) (test 26 meq/L 22-29 code = 355) BLOOD UREA NITROGEN 6 mg/dL 7-21 L (BEAKER) (test code = 354) CREATININE (BEAKER) 0.68 mg/dL 0.57-1.25 (test code = 358) GLUCOSE RANDOM 87 mg/dL 70-105 (BEAKER) (test code = 652) CALCIUM (BEAKER) 8.5 mg/dL 8.4-10.2 (test code = 697) EGFR (BEAKER) (test 93 mL/min/1.73 ESTIMA GURVINDER GFR IS code = 1092) sq m NOT ACCURATE CREATININE CLEARANCE IN PREDICTING GLOMERULAR FILTRATION RATE . ESTIMATED GFR I S NOT APPLICABLE FOR DIALYSIS PATIEN TS. CBC (HEMOGRAM ONLY)2018-08-23 06:39:00 Test Item Value Reference Range Interpretation Comments WHITE BLOOD CELL COUNT (BEAKER) 5.5 K/ L 3.5-10.5 (test code = 775) RED BLOOD CELL COUNT (BEAKER) 3.31 M/ L 3.93-5.22 L (test code = 761) HEMOGLOBIN (BEAKER) (test code = 10.4 GM/DL 11.2-15.7 L 410) HEMATOCRIT (BEAKER) (test code = 34.9 % 34.1-44.9 411) MEAN CORPUSCULAR VOLUME (BEAKER) 105.4 fL 79.4-94.8 H (test code = 753) MEAN CORPUSCULAR HEMOGLOBIN 31.4 pg 25.6-32.2 (BEAKER) (test code = 751) MEAN CORPUSCULAR HEMOGLOBIN CONC 29.8 GM/DL 32.2-35.5 L (BEAKER) (test code = 752) RED CELL DISTRIBUTION WIDTH 15.4 % 11.7-14.4 H (BEAKER) (test code = 412) PLATELET COUNT (BEAKER) (test 185 K/CU MM 150-450 code = 756) MEAN PLATELET VOLUME (BEAKER) 8.9 fL 9.4-12.3 L (test code = 754) NUCLEATED RED BLOOD CELLS 0 /100 WBC 0-0 (BEAKER) (test code = 413) TISSUE [id number] 13:47:00Surgical Pathology Report Case: [id number] Authorizing Provider: Jani Alejandro MD Collected: 08/20/2018 1003 Ordering Location: [facility] Received: 08/20/2018 1118 SERVICES Pathologist: Linda Mullen MD Specimen: Large Intestine, Colon - Right/Ascending, RIGHT COLON AND SMALL BOWEL A. COLON, RIGHT/ASCENDING, RIGHT HEMICOLECTOMY: - CHRONIC ACTIVE ENTERITIS COMPATIBLE WITH CROHN'S DISEASE (SEE COMMENT) - NEGATIVE FOR GRANULOMAS (OR) VIRAL CYTOPATHIC CHANGES - NEGATIVE FOR DYSPLASIA (OR) MALIGNANCY - MARGINS, UNREMARKABLE Signing Pathologist Direct Phone Line: [phone] signed by Linda Mullen MD on 08/22/2018 [...] viral cytopathic changes are seen.ID[facility]: Dr. Leslie allen.23007Pvuns's disease of small intestine without complication Right [...] cm from the nearest margin (inked black). Th ere is a 2.2 x 0.9 cm, rodriguez-pink, hyperemic, ulcerative area that is 4 cm from the anastomotic site and 13 cm from the nearest margin (inked black). There is a 1.2 x 0.9 cm, flattened, hemorrhagic area that is 9.3 cm from the nearest margin (inked blue). The remaining mucosa is rodriguez-pink with normal mucosal folding and no masses or lesions identified. Cracking Unit Operator sections are submitted in 10 cassettes as follows.Ink code: Blue-one marginBlack-margin closest to anastomotic siteSection code: A1 - account services representative sections of both margins, differentially inked per the ink code A2-A5 - entire sections of ulcerative areaA6 - entire sections of hemorrhagic mucosal areaA7-A10 - account services representative sections of mucosaFR/ewPerformed.[id number] 06:10:00 Test Item Value Reference Range Interpretation Comments PHOSPHORUS (BEAKER) (test code = 2.3 mg/dL 2.3-4.7 604) [id number] 06:10:00 Test Item Value Reference Range Interpretation Comments MAGNESIUM (BEAKER) (test code = 1.7 mg/dL 1.6-2.6 627) BASIC METABOLIC [id number] 06:10:00 Test Item Value Reference Range Interpretation Comments SODIUM (BEAKER) 137 meq/L 136-145 (test code = 381) POTASSIUM (BEAKER) 3.8 meq/L 3.5-5.1 (test code = 379) CHLORIDE (BEAKER) 105 meq/L 98-107 (test code = 382) CO2 (BEAKER) (test 25 meq/L 22-29 code = 355) BLOOD UREA NITROGEN 5 mg/dL 7-21 L (BEAKER) (test code = 354) CREATININE (BEAKER) 0.73 mg/dL 0.57-1.25 (test code = 358) GLUCOSE RANDOM 105 mg/dL 70-105 (BEAKER) (test code = 652) CALCIUM (BEAKER) 8.6 mg/dL 8.4-10.2 (test code = 697) EGFR (BEAKER) (test 86 mL/min/1.73 ESTIMA GURVINDER GFR IS code = 1092) sq m NOT ACCURATE CREATININE CLEARANCE IN PREDICTING GLOMERULAR FILTRATION RATE . ESTIMATED GFR I S NOT APPLICABLE FOR DIALYSIS PATIEN TS. CBC (HEMOGRAM ONLY)2018-08-22 05:31:00 Test Item Value Reference Range Interpretation Comments WHITE BLOOD CELL COUNT (BEAKER) 7.8 K/ L 3.5-10.5 (test code = 775) RED BLOOD CELL COUNT (BEAKER) 3.65 M/ L 3.93-5.22 L (test code = 761) HEMOGLOBIN (BEAKER) (test code = 11.5 GM/DL 11.2-15.7 410) HEMATOCRIT (BEAKER) (test code = 37.1 % 34.1-44.9 411) MEAN CORPUSCULAR VOLUME (BEAKER) 101.6 fL 79.4-94.8 H (test code = 753) MEAN CORPUSCULAR HEMOGLOBIN 31.5 pg 25.6-32.2 (BEAKER) (test code = 751) MEAN CORPUSCULAR HEMOGLOBIN CONC 31.0 GM/DL 32.2-35.5 L (BEAKER) (test code = 752) RED CELL DISTRIBUTION WIDTH 15.2 % 11.7-14.4 H (BEAKER) (test code = 412) PLATELET COUNT (BEAKER) (test 215 K/CU MM 150-450 code = 756) MEAN PLATELET VOLUME (BEAKER) 8.8 fL 9.4-12.3 L (test code = 754) NUCLEATED RED BLOOD CELLS 0 /100 WBC 0-0 (BEAKER) (test code = 413) [id number] 03:34:00 Test Item Value Reference Range Interpretation Comments PHOSPHORUS (BEAKER) (test code = 2.5 mg/dL 2.3-4.7 604) [id number] 03:34:00 Test Item Value Reference Range Interpretation Comments MAGNESIUM (BEAKER) (test code = 1.9 mg/dL 1.6-2.6 627) BASIC METABOLIC [id number] 03:34:00 Test Item Value Reference Range Interpretation Comments SODIUM (BEAKER) 138 meq/L 136-145 (test code = 381) POTASSIUM (BEAKER) 3.9 meq/L 3.5-5.1 (test code = 379) CHLORIDE (BEAKER) 108 meq/L 98-107 H (test code = 382) CO2 (BEAKER) (test 25 meq/L 22-29 code = 355) BLOOD UREA NITROGEN 5 mg/dL 7-21 L (BEAKER) (test code = 354) CREATININE (BEAKER) 0.67 mg/dL 0.57-1.25 (test code = 358) GLUCOSE RANDOM 122 mg/dL 70-105 H (BEAKER) (test code = 652) CALCIUM (BEAKER) 8.4 mg/dL 8.4-10.2 (test code = 697) EGFR (BEAKER) (test 95 mL/min/1.73 ESTIMA GURVINDER GFR IS code = 1092) sq m NOT ACCURATE CREATININE CLEARANCE IN PREDICTING GLOMERULAR FILTRATION RATE . ESTIMATED GFR I S NOT APPLICABLE FOR DIALYSIS PATIEN TS. CBC (HEMOGRAM ONLY)2018-08-21 03:17:00 Test Item Value Reference Range Interpretation Comments WHITE BLOOD CELL COUNT (BEAKER) 7.8 K/ L 3.5-10.5 (test code = 775) RED BLOOD CELL COUNT (BEAKER) 3.65 M/ L 3.93-5.22 L (test code = 761) HEMOGLOBIN (BEAKER) (test code = 11.4 GM/DL 11.2-15.7 410) HEMATOCRIT (BEAKER) (test code = 36.3 % 34.1-44.9 411) MEAN CORPUSCULAR VOLUME (BEAKER) 99.5 fL 79.4-94.8 H (test code = 753) MEAN CORPUSCULAR HEMOGLOBIN 31.2 pg 25.6-32.2 (BEAKER) (test code = 751) MEAN CORPUSCULAR HEMOGLOBIN CONC 31.4 GM/DL 32.2-35.5 L (BEAKER) (test code = 752) RED CELL DISTRIBUTION WIDTH 14.9 % 11.7-14.4 H (AKER) (test code = 412) PLATELET COUNT ([facility]) (test 204 K/CU MM 150-450 code = 756) MEAN PLATELET VOLUME ([facility]) 8.5 fL 9.4-12.3 L (test code = 754) NUCLEATED RED BLOOD CELLS 0 /100 WBC 0-0 ([facility]) (test code = 413) POCT-GLUCOSE [id number] 11:42:00 Test Item Value Reference Range Interpretation Comments POC-GLUCOSE METER 129 mg/dL 70-110 H TESTED AT [facility] 67 ([facility]) (test code = [facility] 1538) [address] POCT-GLUCOSE [id number] 06:28:00 Test Item Value Reference Range Interpretation Comments POC-GLUCOSE METER 102 mg/dL 70-110 TESTED AT [place] [address] ([facility]) (test code = [facility] 1538) [address] CT, [id number] 15:41:00FINAL REPORT CT abdomen and pelvis with [...] size, and/or use of iterative reconstruction technique. Findings:Unremarkable appearance of pancreas and spleen. Unremarkable appearance [...] MDReport Verified Date/Time: 08/17/2018 15:41:17 Reading Location: [facility] Diagnostic [facility] Reading Room - [place] [address] 1120 STOOL CULTURE + SHIGA [id number] 15:37:00 Test Item Value Reference Range Interpretation Comments CULTURE (BEAKER) No Salmonella, Shigella (test code = 1095) or Campylobacter isolated POCT-GLUCOSE [id number] 08:25:00 Test Item Value Reference Range Interpretation Comments POC-GLUCOSE METER 197 mg/dL 70-110 H TESTED AT [facility] 6720 (BEAKER) (test code = [place] 1538) [address] [id number] 05:59:00 Test Item Value Reference Range Interpretation Comments PHOSPHORUS (BEAKER) (test code = 3.6 mg/dL 2.3-4.7 604) [id number] 05:59:00 Test Item Value Reference Range Interpretation Comments MAGNESIUM (BEAKER) (test code = 2.3 mg/dL 1.6-2.6 627) BASIC METABOLIC [id number] 05:59:00 Test Item Value Reference Range Interpretation Comments SODIUM (BEAKER) 137 meq/L 136-145 (test code = 381) POTASSIUM (BEAKER) 4.7 meq/L 3.5-5.1 (test code = 379) CHLORIDE (BEAKER) 104 meq/L 98-107 (test code = 382) CO2 (BEAKER) (test 24 meq/L 22-29 code = 355) BLOOD UREA NITROGEN 4 mg/dL 7-21 L (BEAKER) (test code = 354) CREATININE (BEAKER) 0.74 mg/dL 0.57-1.25 (test code = 358) GLUCOSE RANDOM 144 mg/dL 70-105 H (BEAKER) (test code = 652) CALCIUM (BEAKER) 9.0 mg/dL 8.4-10.2 (test code = 697) EGFR (BEAKER) (test 84 mL/min/1.73 ESTIMA GURVINDER GFR IS code = 1092) sq m NOT ACCURATE CREATININE CLEARANCE IN PREDICTING GLOMERULAR FILTRATION RATE . ESTIMATED GFR I S NOT APPLICABLE FOR DIALYSIS PATIEN TS. HEPATIC FUNCTION [id number] 05:59:00 Test Item Value Reference Range Interpretation Comments TOTAL PROTEIN (BEAKER) (test code = 6.3 gm/dL 6.0-8.3 770) ALBUMIN (BEAKER) (test code = 1145) 3.9 g/dL 3.5-5.0 BILIRUBIN TOTAL (BEAKER) (test code 0.3 mg/dL 0.2-1.2 = 377) BILIRUBIN DIRECT (BEAKER) (test 0.1 mg/dL 0.1-0.5 code = 706) ALKALINE PHOSPHATASE (BEAKER) (test 68 U/L 40-150 code = 346) AST (SGOT) (BEAKER) (test code = 23 U/L 5-34 353) ALT (SGPT) (BEAKER) (test code = 41 U/L 6-55 347) POCT-GLUCOSE [id number] 21:05:00 Test Item Value Reference Range Interpretation Comments POC-GLUCOSE METER 148 mg/dL 70-110 H TESTED AT [place] [address] [facility] (test code = [facility] 1538) [address] C. DIFFICILE GDH [id number] 15:59:00 Test Item Value Reference Range Interpretation Comments CDT TOXIN (test code Negative Negative = [id number]) CDT GDH ANTIGEN (test Negative Negative No ind ication of code = [id number]) Clostridi um difficile infection and n o colonization. Discontinue ent kaveh isolation and t herapy. Testing performed by [employer] Rapid Cassette Assay. For GDH, published sensitivity of the assay is 98.7% compared to cytotoxicity testing. For Toxin AB, published sensitivity is 87.8% and specificity 99.4% compared to cytotoxicity testing.Verification of kit performance was done by the [facility] Microbiology Lab prior to clinical use.SHIGA TOXIN [id number] 14:22:00 Test Item Value Reference Range Interpretation Comments SHIGA TOXIN 1 (BEAKER) (test Not detected Not detected code = 2177) SHIGA TOXIN 2 (BEAKER) (test Not detected Not detected code = 2179) POCT-GLUCOSE [id number] 13:13:00 Test Item Value Reference Range Interpretation Comments POC-GLUCOSE METER 119 mg/dL 70-110 H TESTED AT [place] [address] ([place]) (test code = [facility] 1538) [address] STOOL PATH [id number] 10:03:00 Test Item Value Reference Range Interpretation Comments PATHOGEN EXAM CHARGED (BEAKER) (test Done code = 2381) POCT-GLUCOSE [id number] 09:13:00 Test Item Value Reference Range Interpretation Comments POC-GLUCOSE METER 111 mg/dL 70-110 H TESTED AT [facility] 6720 (BEAKER) (test code = [place] [facility] 1538) [address] [id number] 06:09:00 Test Item Value Reference Range Interpretation Comments PREALBUMIN (BEAKER) (test code = 36 mg/dL 14-45 586) CBC W/PLT COUNT & AUTO [id number] 06:02:00 Test Item Value Reference Range Interpretation Comments WHITE BLOOD CELL COUNT (BEAKER) 8.2 K/ L 3.5-10.5 (test code = 775) RED BLOOD CELL COUNT (BEAKER) 4.02 M/ L 3.93-5.22 (test code = 761) HEMOGLOBIN (BEAKER) (test code = 12.5 GM/DL 11.2-15.7 410) HEMATOCRIT (BEAKER) (test code = 39.7 % 34.1-44.9 411) MEAN CORPUSCULAR VOLUME (BEAKER) 98.8 fL 79.4-94.8 H (test code = 753) MEAN CORPUSCULAR HEMOGLOBIN 31.1 pg 25.6-32.2 (BEAKER) (test code = 751) MEAN CORPUSCULAR HEMOGLOBIN CONC 31.5 GM/DL 32.2-35.5 L (BEAKER) (test code = 752) RED CELL DISTRIBUTION WIDTH 14.8 % 11.7-14.4 H (BEAKER) (test code = 412) PLATELET COUNT (BEAKER) (test 322 K/CU MM 150-450 code = 756) MEAN PLATELET VOLUME (BEAKER) 8.6 fL 9.4-12.3 L (test code = 754) NUCLEATED RED BLOOD CELLS 0 /100 WBC 0-0 (BEAKER) (test code = 413) NEUTROPHILS RELATIVE PERCENT 83 % (BEAKER) (test code = 429) LYMPHOCYTES RELATIVE PERCENT 14 % (BEAKER) (test code = 430) MONOCYTES RELATIVE PERCENT 2 % (BEAKER) (test code = 431) EOSINOPHILS RELATIVE PERCENT 0 % (BEAKER) (test code = 432) BASOPHILS RELATIVE PERCENT 0 % (BEAKER) (test code = 437) NEUTROPHILS ABSOLUTE COUNT 6.83 K/ L 1.56-6.13 H (BEAKER) (test code = 670) LYMPHOCYTES ABSOLUTE COUNT 1.16 K/ L 1.18-3.74 L (BEAKER) (test code = 414) MONOCYTES ABSOLUTE COUNT (BEAKER) 0.16 K/ L 0.24-0.36 L (test code = 415) EOSINOPHILS ABSOLUTE COUNT 0.00 K/ L 0.04-0.36 L (BEAKER) (test code = 416) BASOPHILS ABSOLUTE COUNT (BEAKER) 0.01 K/ L 0.01-0.08 (test code = 417) IMMATURE GRANULOCYTES-RELATIVE 1 % 0-1 PERCENT (BEAKER) (test code = 2801) [id number] 05:52:00 Test Item Value Reference Range Interpretation Comments PHOSPHORUS (BEAKER) (test code = 4.0 mg/dL 2.3-4.7 604) [id number] 05:52:00 Test Item Value Reference Range Interpretation Comments MAGNESIUM (BEAKER) (test code = 2.3 mg/dL 1.6-2.6 627) BASIC METABOLIC [id number] 05:52:00 Test Item Value Reference Range Interpretation Comments SODIUM (BEAKER) 139 meq/L 136-145 (test code = 381) POTASSIUM (BEAKER) 4.4 meq/L 3.5-5.1 (test code = 379) CHLORIDE (BEAKER) 104 meq/L 98-107 (test code = 382) CO2 (BEAKER) (test 25 meq/L 22-29 code = 355) BLOOD UREA NITROGEN 5 mg/dL 7-21 L (BEAKER) (test code = 354) CREATININE (BEAKER) 0.78 mg/dL 0.57-1.25 (test code = 358) GLUCOSE RANDOM 172 mg/dL 70-105 H (BEAKER) (test code = 652) CALCIUM (BEAKER) 9.0 mg/dL 8.4-10.2 (test code = 697) EGFR (BEAKER) (test 80 mL/min/1.73 ESTIMA GURVINDER GFR IS code = 1092) sq m NOT ACCURATE CREATININE CLEARANCE IN PREDICTING GLOMERULAR FILTRATION RATE . ESTIMATED GFR I S NOT APPLICABLE FOR DIALYSIS PATIEN TS. HEPATIC FUNCTION [id number] 05:52:00 Test Item Value Reference Range Interpretation Comments TOTAL PROTEIN (BEAKER) (test code = 6.4 gm/dL 6.0-8.3 770) ALBUMIN (BEAKER) (test code = 1145) 3.9 g/dL 3.5-5.0 BILIRUBIN TOTAL (BEAKER) (test code 0.2 mg/dL 0.2-1.2 = 377) BILIRUBIN DIRECT (BEAKER) (test 0.1 mg/dL 0.1-0.5 code = 706) ALKALINE PHOSPHATASE (BEAKER) (test 68 U/L 40-150 code = 346) AST (SGOT) (BEAKER) (test code = 12 U/L 5-34 353) ALT (SGPT) (BEAKER) (test code = 29 U/L 6-55 347) C-REACTIVE [id number] 05:52:00 Test Item Value Reference Range Interpretation Comments C-REACTIVE PROTEIN (BEAKER) (test 0.22 mg/dL 0.00-0.50 code = 676) POCT-GLUCOSE [id number] 23:39:00 Test Item Value Reference Range Interpretation Comments POC-GLUCOSE METER 122 mg/dL 70-110 H TESTED AT [facility] 6720 (BEAKER) (test code = [place] 1538) [address] CT, [id number] 04:05:00FINAL REPORT CLINICAL HISTORY: Acute abdominal pain, [...] pneumatosis intestinalis. The patient has undergone previous ileocolecto my. The colon appears grossly unremarkable. The previously [...] the previously described findings of colitis. Signed: Denis Sow MDRepcarondelet health Verified Date/Time: 07/21/2018 04:05:05 Reading Location: [address] Reading Room [id number] 22:00:00 Test Item Value Reference Range Interpretation Comments LIPASE (BEAKER) (test code = 749) 12 U/L 8-78 COMPREHENSIVE METABOLIC [id number] 22:00:00 Test Item Value Reference Range Interpretation Comments TOTAL PROTEIN 5.6 gm/dL 6.0-8.3 L (BEAKER) (test code = 770) ALBUMIN (BEAKER) 3.5 g/dL 3.5-5.0 (test code = 1145) ALKALINE PHOSPHATASE 54 U/L 40-150 (BEAKER) (test code = 346) BILIRUBIN TOTAL 0.2 mg/dL 0.2-1.2 (BEAKER) (test code = 377) SODIUM (BEAKER) (test 143 meq/L 136-145 code = 381) POTASSIUM (BEAKER) 3.9 meq/L 3.5-5.1 (test code = 379) CHLORIDE (BEAKER) 106 meq/L 98-107 (test code = 382) CO2 (BEAKER) (test 27 meq/L 22-29 code = 355) BLOOD UREA NITROGEN 12 mg/dL 7-21 (BEAKER) (test code = 354) CREATININE (BEAKER) 0.76 mg/dL 0.57-1.25 (test code = 358) GLUCOSE RANDOM 84 mg/dL 70-105 (BEAKER) (test code = 652) CALCIUM (BEAKER) 8.5 mg/dL 8.4-10.2 (test code = 697) AST (SGOT) (BEAKER) 13 U/L 5-34 (test code = 353) ALT (SGPT) (BEAKER) 27 U/L 6-55 (test code = 347) EGFR (BEAKER) (test 82 mL/min/1.73 ESTIMA GURVINDER GFR IS code = 1092) sq m NOT ACCURATE CREATININE CLEARANCE IN PREDICTING GLOMERULAR FILTRATION RATE . ESTIMATED GFR I S NOT APPLICABLE FOR DIALYSIS PATIEN TS. [id number] 21:55:00 Test Item Value Reference Range Interpretation Comments PARTIAL THROMBOPLASTIN TIME 24.6 seconds 22.5-36.0 (BEAKER) (test code = 760) PROTHROMBIN [id number] 21:53:00 Test Item Value Reference Range Interpretation Comments PROTIME (BEAKER) (test code = 13.2 seconds 11.7-14.7 759) INR (BEAKER) (test code = 370) 1.0 <=5.9 RECOMMENDED COUMADIN/WARFARIN INR THERAPY RANGESSTANDARD DOSE: 2.0 - 3.0 Includes: PROPHYLAXIS forvenous thrombosis, systemic embolization; TREATMENT for venous thrombosis and/or pulmonary embolus.HIGH RISK: Target INR is 2.5-3.5 for patients with mechanical heart valves.CBC W/PLT COUNT & AUTO DIFFERENTIAL 2018-07-20 21:44:00 Test Item Value Reference Range Interpretation Comments WHITE BLOOD CELL COUNT (BEAKER) 10.8 K/ L 3.5-10.5 H (test code = 775) RED BLOOD CELL COUNT (BEAKER) 3.58 M/ L 3.93-5.22 L (test code = 761) HEMOGLOBIN (BEAKER) (test code = 11.1 GM/DL 11.2-15.7 L 410) HEMATOCRIT (BEAKER) (test code = 35.1 % 34.1-44.9 411) MEAN CORPUSCULAR VOLUME (BEAKER) 98.0 fL 79.4-94.8 H (test code = 753) MEAN CORPUSCULAR HEMOGLOBIN 31.0 pg 25.6-32.2 (BEAKER) (test code = 751) MEAN CORPUSCULAR HEMOGLOBIN CONC 31.6 GM/DL 32.2-35.5 L (BEAKER) (test code = 752) RED CELL DISTRIBUTION WIDTH 15.1 % 11.7-14.4 H (BEAKER) (test code = 412) PLATELET COUNT (BEAKER) (test 245 K/CU MM 150-450 code = 756) MEAN PLATELET VOLUME (BEAKER) 8.6 fL 9.4-12.3 L (test code = 754) NUCLEATED RED BLOOD CELLS 0 /100 WBC 0-0 (BEAKER) (test code = 413) NEUTROPHILS RELATIVE PERCENT 73 % (BEAKER) (test code = 429) LYMPHOCYTES RELATIVE PERCENT 20 % (BEAKER) (test code = 430) MONOCYTES RELATIVE PERCENT 6 % (BEAKER) (test code = 431) EOSINOPHILS RELATIVE PERCENT 0 % (BEAKER) (test code = 432) BASOPHILS RELATIVE PERCENT 0 % (BEAKER) (test code = 437) NEUTROPHILS ABSOLUTE COUNT 7.89 K/ L 1.56-6.13 H (BEAKER) (test code = 670) LYMPHOCYTES ABSOLUTE COUNT 2.13 K/ L 1.18-3.74 (BEAKER) (test code = 414) MONOCYTES ABSOLUTE COUNT (BEAKER) 0.65 K/ L 0.24-0.36 H (test code = 415) EOSINOPHILS ABSOLUTE COUNT 0.01 K/ L 0.04-0.36 L (BEAKER) (test code = 416) BASOPHILS ABSOLUTE COUNT (BEAKER) 0.01 K/ L 0.01-0.08 (test code = 417) IMMATURE GRANULOCYTES-RELATIVE 1 % 0-1 PERCENT (BEAKER) (test code = 2801) TISSUE [id number] 09:23:00Surgical Pathology Report Case: [id number] Authorizing Provider: King Huynh MD Collected: 07/11/2018 0924 Ordering Location: [address] Received: 07/11/2018 1421 Service Pathologist: Linda Mullen MD Specimens: A) - Large Intestine, Colon - Right/Ascending, random biopsies B) -Large Intestine, Colon - Transverse, random biopsies C) - Large Intestine, Colon - Left/Descending, random biopsies D) - LargeIntestine, Colon - Sigmoid, random biopsies A. COLON, RIGHT/ASCENDING,RANDOM, BIOPSY: - COLONIC MUCOSA WITH NO SIGNIFICANT DIAGNOSTIC ABNORMALITY (SEE MICROSCOPIC DESCR IPTION AND COMMENT)B. COLON, TRANSVERSE, RANDOM, BIOPSY: - COLONIC MUCOSA WITH NO SIGNIFICANT DIAGNOSTIC ABNORMALITY (SEE MICROSCOPIC DESCRIPTION AND COMMENT)C. COLON, LEFT/DESCENDING, RANDOM, BIOPSY: - COLONIC MUCOSA WITH NO SIGNIFICANT DIAGNOSTIC ABNORMALITY (SEE MICROSCOPIC DESCRIPTION AND COM MENT)D. COLON, SIGMOID, RANDOM, BIOPSY: - COLONIC MUCOSA WITH NO SIGNIFICANT DIAGNOSTIC ABNORMALITY (SEE MICROSCOPIC DESCRIPTION AND COMMENT) Signing Pathologist Direct Phone Line: [phone] signed by Linda Mullen MD on 07/12/2018 at 9:23 AMPatient's history of Crohn's disease is noted per Epic note dated 07/10/18. The current sampling shows no significant active or chronic colitis. This may represent complete histologic resolution following treatment. Clinical and endoscopic correlation is recommended.[id number] abdominal pain A. Random colon biopsy. B. Random tr ansverse colon biopsy. C. Left random colon biopsy. [...] noted. No dysplasia or carcinoma is present.BLOOD [id number] 20:01:00 Test Item Value Reference Range Interpretation Comments CULTURE (BEAKER) (test No growth in 5 days code = 1095) BLOOD [id number] 20:01:00 Test Item Value Reference Range Interpretation Comments CULTURE (BEAKER) (test No growth in 5 days code = 1095) BASIC METABOLIC [id number] 04:55:00 Test Item Value Reference Range Interpretation Comments SODIUM (BEAKER) 145 meq/L 136-145 (test code = 381) POTASSIUM (BEAKER) 4.0 meq/L 3.5-5.1 (test code = 379) CHLORIDE (BEAKER) 111 meq/L 98-107 H (test code = 382) CO2 (BEAKER) (test 27 meq/L 22-29 code = 355) BLOOD UREA NITROGEN 2 mg/dL 7-21 L (BEAKER) (test code = 354) CREATININE (BEAKER) 0.68 mg/dL 0.57-1.25 (test code = 358) GLUCOSE RANDOM 100 mg/dL 70-105 (BEAKER) (test code = 652) CALCIUM (BEAKER) 9.0 mg/dL 8.4-10.2 (test code = 697) EGFR (BEAKER) (test 93 mL/min/1.73 ESTIMA GURVINDER GFR IS code = 1092) sq m NOT ACCURATE CREATININE CLEARANCE IN PREDICTING GLOMERULAR FILTRATION RATE . ESTIMATED GFR I S NOT APPLICABLE FOR DIALYSIS PATIEN TS. CBC W/PLT COUNT & AUTO [id number] 04:37:00 Test Item Value Reference Range Interpretation Comments WHITE BLOOD CELL COUNT (BEAKER) 6.3 K/ L 3.5-10.5 (test code = 775) RED BLOOD CELL COUNT (BEAKER) 3.92 M/ L 3.93-5.22 L (test code = 761) HEMOGLOBIN (BEAKER) (test code = 12.0 GM/DL 11.2-15.7 410) HEMATOCRIT (BEAKER) (test code = 38.3 % 34.1-44.9 411) MEAN CORPUSCULAR VOLUME (BEAKER) 97.7 fL 79.4-94.8 H (test code = 753) MEAN CORPUSCULAR HEMOGLOBIN 30.6 pg 25.6-32.2 (BEAKER) (test code = 751) MEAN CORPUSCULAR HEMOGLOBIN CONC 31.3 GM/DL 32.2-35.5 L (BEAKER) (test code = 752) RED CELL DISTRIBUTION WIDTH 13.5 % 11.7-14.4 (BEAKER) (test code = 412) PLATELET COUNT (BEAKER) (test 220 K/CU MM 150-450 code = 756) MEAN PLATELET VOLUME (BEAKER) 9.6 fL 9.4-12.3 (test code = 754) NUCLEATED RED BLOOD CELLS 0 /100 WBC 0-0 (BEAKER) (test code = 413) NEUTROPHILS RELATIVE PERCENT 76 % (BEAKER) (test code = 429) LYMPHOCYTES RELATIVE PERCENT 20 % (BEAKER) (test code = 430) MONOCYTES RELATIVE PERCENT 3 % (BEAKER) (test code = 431) EOSINOPHILS RELATIVE PERCENT 0 % (BEAKER) (test code = 432) BASOPHILS RELATIVE PERCENT 0 % (BEAKER) (test code = 437) NEUTROPHILS ABSOLUTE COUNT 4.80 K/ L 1.56-6.13 (BEAKER) (test code = 670) LYMPHOCYTES ABSOLUTE COUNT 1.26 K/ L 1.18-3.74 (BEAKER) (test code = 414) MONOCYTES ABSOLUTE COUNT (BEAKER) 0.20 K/ L 0.24-0.36 L (test code = 415) EOSINOPHILS ABSOLUTE COUNT 0.00 K/ L 0.04-0.36 L (BEAKER) (test code = 416) BASOPHILS ABSOLUTE COUNT (BEAKER) 0.01 K/ L 0.01-0.08 (test code = 417) IMMATURE GRANULOCYTES-RELATIVE 1 % 0-1 PERCENT (BEAKER) (test code = 2801) BASIC METABOLIC [id number] 06:15:00 Test Item Value Reference Range Interpretation Comments SODIUM (BEAKER) 144 meq/L 136-145 (test code = 381) POTASSIUM (BEAKER) 4.3 meq/L 3.5-5.1 Specimen slightly (test code = 379) hemolyzed CHLORIDE (BEAKER) 113 meq/L 98-107 H (test code = 382) CO2 (BEAKER) (test 24 meq/L 22-29 code = 355) BLOOD UREA NITROGEN 3 mg/dL 7-21 L (BEAKER) (test code = 354) CREATININE (BEAKER) 0.72 mg/dL 0.57-1.25 Specimen slightly (test code = 358) hemolyzed GLUCOSE RANDOM 138 mg/dL 70-105 H (BEAKER) (test code = 652) CALCIUM (BEAKER) 9.3 mg/dL 8.4-10.2 (test code = 697) EGFR (BEAKER) (test 87 mL/min/1.73 ESTIMA GURVINDER GFR IS code = 1092) sq m NOT ACCURATE CREATININE CLEARANCE IN PREDICTING GLOMERULAR FILTRATION RATE . ESTIMATED GFR I S NOT APPLICABLE FOR DIALYSIS PATIEN TS. CBC W/PLT COUNT & AUTO [id number] 06:06:00 Test Item Value Reference Range Interpretation Comments WHITE BLOOD CELL COUNT (BEAKER) 7.5 K/ L 3.5-10.5 (test code = 775) RED BLOOD CELL COUNT (BEAKER) 4.07 M/ L 3.93-5.22 (test code = 761) HEMOGLOBIN (BEAKER) (test code = 12.9 GM/DL 11.2-15.7 410) HEMATOCRIT (BEAKER) (test code = 40.3 % 34.1-44.9 411) MEAN CORPUSCULAR VOLUME (BEAKER) 99.0 fL 79.4-94.8 H (test code = 753) MEAN CORPUSCULAR HEMOGLOBIN 31.7 pg 25.6-32.2 (BEAKER) (test code = 751) MEAN CORPUSCULAR HEMOGLOBIN CONC 32.0 GM/DL 32.2-35.5 L (BEAKER) (test code = 752) RED CELL DISTRIBUTION WIDTH 13.3 % 11.7-14.4 (BEAKER) (test code = 412) PLATELET COUNT (BEAKER) (test 191 K/CU MM 150-450 code = 756) MEAN PLATELET VOLUME (BEAKER) 9.9 fL 9.4-12.3 (test code = 754) NUCLEATED RED BLOOD CELLS 0 /100 WBC 0-0 (BEAKER) (test code = 413) NEUTROPHILS RELATIVE PERCENT 70 % (BEAKER) (test code = 429) LYMPHOCYTES RELATIVE PERCENT 24 % (BEAKER) (test code = 430) MONOCYTES RELATIVE PERCENT 5 % (BEAKER) (test code = 431) EOSINOPHILS RELATIVE PERCENT 0 % (BEAKER) (test code = 432) BASOPHILS RELATIVE PERCENT 0 % (BEAKER) (test code = 437) NEUTROPHILS ABSOLUTE COUNT 5.25 K/ L 1.56-6.13 (BEAKER) (test code = 670) LYMPHOCYTES ABSOLUTE COUNT 1.83 K/ L 1.18-3.74 (BEAKER) (test code = 414) MONOCYTES ABSOLUTE COUNT (BEAKER) 0.37 K/ L 0.24-0.36 H (test code = 415) EOSINOPHILS ABSOLUTE COUNT 0.02 K/ L 0.04-0.36 L (BEAKER) (test code = 416) BASOPHILS ABSOLUTE COUNT (BEAKER) 0.01 K/ L 0.01-0.08 (test code = 417) IMMATURE GRANULOCYTES-RELATIVE 0 % 0-1 PERCENT (BEAKER) (test code = 2801) STOOL CULTURE + SHIGA [id number] 12:15:00 Test Item Value Reference Range Interpretation Comments CULTURE (BEAKER) No Salmonella, Shigella (test code = 1095) or Campylobacter isolated BASIC METABOLIC [id number] 07:08:00 Test Item Value Reference Range Interpretation Comments SODIUM (BEAKER) 143 meq/L 136-145 (test code = 381) POTASSIUM (BEAKER) 4.2 meq/L 3.5-5.1 (test code = 379) CHLORIDE (BEAKER) 111 meq/L 98-107 H (test code = 382) CO2 (BEAKER) (test 25 meq/L 22-29 code = 355) BLOOD UREA NITROGEN 3 mg/dL 7-21 L (BEAKER) (test code = 354) CREATININE (BEAKER) 0.67 mg/dL 0.57-1.25 (test code = 358) GLUCOSE RANDOM 106 mg/dL 70-105 H (BEAKER) (test code = 652) CALCIUM (BEAKER) 9.2 mg/dL 8.4-10.2 (test code = 697) EGFR (BEAKER) (test 95 mL/min/1.73 ESTIMA GURVINDER GFR IS code = 1092) sq m NOT ACCURATE CREATININE CLEARANCE IN PREDICTING GLOMERULAR FILTRATION RATE . ESTIMATED GFR I S NOT APPLICABLE FOR DIALYSIS PATIEN TS. CBC W/PLT COUNT & AUTO [id number] 06:42:00 Test Item Value Reference Range Interpretation Comments WHITE BLOOD CELL COUNT (BEAKER) 6.2 K/ L 3.5-10.5 (test code = 775) RED BLOOD CELL COUNT (BEAKER) 4.29 M/ L 3.93-5.22 (test code = 761) HEMOGLOBIN (BEAKER) (test code = 13.4 GM/DL 11.2-15.7 410) HEMATOCRIT (BEAKER) (test code = 41.1 % 34.1-44.9 411) MEAN CORPUSCULAR VOLUME (BEAKER) 95.8 fL 79.4-94.8 H (test code = 753) MEAN CORPUSCULAR HEMOGLOBIN 31.2 pg 25.6-32.2 (BEAKER) (test code = 751) MEAN CORPUSCULAR HEMOGLOBIN CONC 32.6 GM/DL 32.2-35.5 (BEAKER) (test code = 752) RED CELL DISTRIBUTION WIDTH 13.1 % 11.7-14.4 (BEAKER) (test code = 412) PLATELET COUNT (BEAKER) (test 232 K/CU MM 150-450 code = 756) MEAN PLATELET VOLUME (BEAKER) 9.0 fL 9.4-12.3 L (test code = 754) NUCLEATED RED BLOOD CELLS 0 /100 WBC 0-0 (BEAKER) (test code = 413) NEUTROPHILS RELATIVE PERCENT 67 % (BEAKER) (test code = 429) LYMPHOCYTES RELATIVE PERCENT 27 % (BEAKER) (test code = 430) MONOCYTES RELATIVE PERCENT 5 % (BEAKER) (test code = 431) EOSINOPHILS RELATIVE PERCENT 0 % (BEAKER) (test code = 432) BASOPHILS RELATIVE PERCENT 0 % (BEAKER) (test code = 437) NEUTROPHILS ABSOLUTE COUNT 4.18 K/ L 1.56-6.13 (BEAKER) (test code = 670) LYMPHOCYTES ABSOLUTE COUNT 1.69 K/ L 1.18-3.74 (BEAKER) (test code = 414) MONOCYTES ABSOLUTE COUNT (BEAKER) 0.29 K/ L 0.24-0.36 (test code = 415) EOSINOPHILS ABSOLUTE COUNT 0.01 K/ L 0.04-0.36 L (BEAKER) (test code = 416) BASOPHILS ABSOLUTE COUNT (BEAKER) 0.02 K/ L 0.01-0.08 (test code = 417) IMMATURE GRANULOCYTES-RELATIVE 1 % 0-1 PERCENT (BEAKER) (test code = 2801) CT, ABDOMEN - PELVIS, [id number] 14:17:00Reason for exam:- >Evaluation of small bowel disease, Crohn'sFINAL REPORT INDICATION:Abdominal pain and history of Crohn's disease. COMPARISON: None. TECHNIQUE: CT of the Abdomen and Pelvis WITH intravenous contrast. Volumen was used as enteric contrast. The exam was performed according to our department dose-optimization protocol, which includes automated exposure control, adjustments of mA and kV according to patient size. Iterative rec onstructions are also sometimes employed. FINDINGS:In the sigmoid [...] of the extrahepatic bile duct. The distal commo n bile duct tapers smoothly at the ampulla so that findings probably represents increased capacitance of the biliary system after cholecystectomy. Adrenal glands are unremarkable. Benign renal cyst arenoted. Bladder is mildly distended and no bladder wall abnormality demonstrated. Patient is status post hysterectomy. No suspicious osseous lesion demonstrated. Endplate degenerative change at L1-2 [id number] noted. There is an implanted pump in the right lower quadrant subcutaneous fat with a lead going to the thecal sac terminating at the T11 level. IMPRESSION: Evidence of acute colitis of the sigmoid colon. No small bowel enteritis demonstrated. No stricture, fistula, or intramesenteric abscess demonstrated. Signed: Ervin Johnson MDReport Verified Date/Time: 07/08/2018 14:17:31 Reading Location: [facility] B1 [id number] Ortho Consult Reading Room C METABOLIC [id number] 06:53:00 Test Item Value Reference Range Interpretation Comments SODIUM (BEAKER) 137 meq/L 136-145 (test code = 381) POTASSIUM (BEAKER) 4.2 meq/L 3.5-5.1 (test code = 379) CHLORIDE (BEAKER) 105 meq/L 98-107 (test code = 382) CO2 (BEAKER) (test 23 meq/L 22-29 code = 355) BLOOD UREA NITROGEN 3 mg/dL 7-21 L (BEAKER) (test code = 354) CREATININE (BEAKER) 0.75 mg/dL 0.57-1.25 (test code = 358) GLUCOSE RANDOM 85 mg/dL 70-105 (BEAKER) (test code = 652) CALCIUM (BEAKER) 8.6 mg/dL 8.4-10.2 (test code = 697) EGFR (BEAKER) (test 83 mL/min/1.73 ESTIMA GURVINDER GFR IS code = 1092) sq m NOT ACCURATE CREATININE CLEARANCE IN PREDICTING GLOMERULAR FILTRATION RATE . ESTIMATED GFR I S NOT APPLICABLE FOR DIALYSIS PATIEN TS. CBC W/PLT COUNT & AUTO [id number] 06:25:00 Test Item Value Reference Range Interpretation Comments WHITE BLOOD CELL COUNT (BEAKER) 5.3 K/ L 3.5-10.5 (test code = 775) RED BLOOD CELL COUNT (BEAKER) 4.11 M/ L 3.93-5.22 (test code = 761) HEMOGLOBIN (BEAKER) (test code = 12.8 GM/DL 11.2-15.7 410) HEMATOCRIT (BEAKER) (test code = 40.4 % 34.1-44.9 411) MEAN CORPUSCULAR VOLUME (BEAKER) 98.3 fL 79.4-94.8 H (test code = 753) MEAN CORPUSCULAR HEMOGLOBIN 31.1 pg 25.6-32.2 (BEAKER) (test code = 751) MEAN CORPUSCULAR HEMOGLOBIN CONC 31.7 GM/DL 32.2-35.5 L (BEAKER) (test code = 752) RED CELL DISTRIBUTION WIDTH 13.7 % 11.7-14.4 (BEAKER) (test code = 412) PLATELET COUNT (BEAKER) (test 213 K/CU MM 150-450 code = 756) MEAN PLATELET VOLUME (BEAKER) 8.9 fL 9.4-12.3 L (test code = 754) NUCLEATED RED BLOOD CELLS 0 /100 WBC 0-0 (BEAKER) (test code = 413) NEUTROPHILS RELATIVE PERCENT 47 % (BEAKER) (test code = 429) LYMPHOCYTES RELATIVE PERCENT 39 % (BEAKER) (test code = 430) MONOCYTES RELATIVE PERCENT 9 % (BEAKER) (test code = 431) EOSINOPHILS RELATIVE PERCENT 5 % (BEAKER) (test code = 432) BASOPHILS RELATIVE PERCENT 0 % (BEAKER) (test code = 437) NEUTROPHILS ABSOLUTE COUNT 2.48 K/ L 1.56-6.13 (BEAKER) (test code = 670) LYMPHOCYTES ABSOLUTE COUNT 2.04 K/ L 1.18-3.74 (BEAKER) (test code = 414) MONOCYTES ABSOLUTE COUNT (BEAKER) 0.45 K/ L 0.24-0.36 H (test code = 415) EOSINOPHILS ABSOLUTE COUNT 0.26 K/ L 0.04-0.36 (BEAKER) (test code = 416) BASOPHILS ABSOLUTE COUNT (BEAKER) 0.02 K/ L 0.01-0.08 (test code = 417) IMMATURE GRANULOCYTES-RELATIVE 0 % 0-1 PERCENT (BEAKER) (test code = 2801) SHIGA TOXIN [id number] 13:53:00 Test Item Value Reference Range Interpretation Comments SHIGA TOXIN 1 (BEAKER) (test Not detected Not detected code = 2177) SHIGA TOXIN 2 (BEAKER) (test Not detected Not detected code = 2179) C. DIFFICILE GDH [id number] 13:28:00 Test Item Value Reference Range Interpretation Comments CDT TOXIN (test code Negative Negative = 7762062325) CDT GDH ANTIGEN (test Negative Negative No ind ication of code = [id number]) Clostridi um difficile infection and n o colonization. Discontinue ent kaveh isolation and t herapy. Testing performed by Ale[employer] Rapid Cassette Assay. For GDH, published sensitivity of the assay is 98.7% compared to cytotoxicity testing. For Toxin AB, published sensitivity is 87.8% and specificity 99.4% compared to cytotoxicity testing.Verification of kit performance was done by the [facility] Microbiology Lab prior to clinical use.STOOL PATH [id number] 10:17:00 Test Item Value Reference Range Interpretation Comments PATHOGEN EXAM CHARGED (BEAKER) (test Done code = 2388) BASIC METABOLIC [id number] 05:17:00 Test Item Value Reference Range Interpretation Comments SODIUM (BEAKER) 142 meq/L 136-145 (test code = 381) POTASSIUM (BEAKER) 4.3 meq/L 3.5-5.1 (test code = 379) CHLORIDE (BEAKER) 110 meq/L 98-107 H (test code = 382) CO2 (BEAKER) (test 25 meq/L 22-29 code = 355) BLOOD UREA NITROGEN 5 mg/dL 7-21 L (BEAKER) (test code = 354) CREATININE (BEAKER) 0.78 mg/dL 0.57-1.25 (test code = 358) GLUCOSE RANDOM 108 mg/dL 70-105 H (BEAKER) (test code = 652) CALCIUM (BEAKER) 8.9 mg/dL 8.4-10.2 (test code = 697) EGFR (BEAKER) (test 80 mL/min/1.73 ESTIMA GURVINDER GFR IS code = 1092) sq m NOT ACCURATE CREATININE CLEARANCE IN PREDICTING GLOMERULAR FILTRATION RATE . ESTIMATED GFR I S NOT APPLICABLE FOR DIALYSIS PATIEN TS. CBC W/PLT COUNT & AUTO [id number] 04:58:00 Test Item Value Reference Range Interpretation Comments WHITE BLOOD CELL COUNT (BEAKER) 4.8 K/ L 3.5-10.5 (test code = 775) RED BLOOD CELL COUNT (BEAKER) 3.79 M/ L 3.93-5.22 L (test code = 761) HEMOGLOBIN (BEAKER) (test code = 11.8 GM/DL 11.2-15.7 410) HEMATOCRIT (BEAKER) (test code = 37.6 % 34.1-44.9 411) MEAN CORPUSCULAR VOLUME (BEAKER) 99.2 fL 79.4-94.8 H (test code = 753) MEAN CORPUSCULAR HEMOGLOBIN 31.1 pg 25.6-32.2 (BEAKER) (test code = 751) MEAN CORPUSCULAR HEMOGLOBIN CONC 31.4 GM/DL 32.2-35.5 L (BEAKER) (test code = 752) RED CELL DISTRIBUTION WIDTH 14.5 % 11.7-14.4 H (BEAKER) (test code = 412) PLATELET COUNT (BEAKER) (test 216 K/CU MM 150-450 code = 756) MEAN PLATELET VOLUME (BEAKER) 9.3 fL 9.4-12.3 L (test code = 754) NUCLEATED RED BLOOD CELLS 0 /100 WBC 0-0 (BEAKER) (test code = 413) NEUTROPHILS RELATIVE PERCENT 44 % (BEAKER) (test code = 429) LYMPHOCYTES RELATIVE PERCENT 44 % (BEAKER) (test code = 430) MONOCYTES RELATIVE PERCENT 6 % (BEAKER) (test code = 431) EOSINOPHILS RELATIVE PERCENT 5 % (BEAKER) (test code = 432) BASOPHILS RELATIVE PERCENT 0 % (BEAKER) (test code = 437) NEUTROPHILS ABSOLUTE COUNT 2.14 K/ L 1.56-6.13 (BEAKER) (test code = 670) LYMPHOCYTES ABSOLUTE COUNT 2.12 K/ L 1.18-3.74 (BEAKER) (test code = 414) MONOCYTES ABSOLUTE COUNT (BEAKER) 0.31 K/ L 0.24-0.36 (test code = 415) EOSINOPHILS ABSOLUTE COUNT 0.24 K/ L 0.04-0.36 (BEAKER) (test code = 416) BASOPHILS ABSOLUTE COUNT (BEAKER) 0.01 K/ L 0.01-0.08 (test code = 417) IMMATURE GRANULOCYTES-RELATIVE 0 % 0-1 PERCENT (BEAKER) (test code = 2801) RAD, CHEST, 1 VIEW, NON [id number] 14:21:00Reason for exam:->FeverShould this be performed at the bedside?->YesFINAL REPORT TECHNIQUE: Frontal chest radiograph dated 07/06/2018. CLINICAL HISTORY: Fever COMPARISON STUDY: None IMPRESSION:Lungs are clear. No pleural effusion or pneumothorax. Cardiomediastinal silhouette is normal in size. No pulmonary edema. No fracture. Signed: Xiao Mckinneyeport Verified Date/Time: 07/06/2018 14:21:04 Reading Location: [facility] Radiology Reading Room D DRUG SCREEN, [id number] 12:52:00 Test Item Value Reference Range Interpretation Comments BARBITURATE URINE (BEAKER) (test Negative Negative code = 725) BENZODIAZEPINE SCREEN URINE (BEAKER) Positive Negative A (test code = 726) COCAINE (METAB.) SCREEN (BEAKER) Negative Negative (test code = 1164) METHADONE SCREEN (BEAKER) (test code Negative Negative = 1436) OPIATE SCREEN URINE (BEAKER) (test Positive Negative A code = 734) CANNABINOID SCREEN URINE (BEAKER) Negative Negative (test code = 727) AMPH/METHAMPH SCREEN (BEAKER) (test Negative Negative code = 1438) PHENCYCLIDINE SCREEN URINE (BEAKER) Negative Negative (test code = 608) OXYCODONE SCREEN URINE (BEAKER) Negative Negative (test code = 2761) DRUG CUTOFF CONC.Cocaine 300 ng/mL Cannabinoid 50 ng/mL Benzodiazepine 200 ng/mLBarbiturate 200 ng/mLPhencyclidine 25 ng/mLOpiate 300 ng/mLMethadone 300 ng/mLAmphetamine/ 1000 ng/mL MethamphetamineOxycodone 300 ng/mLThis assay provides an unconfirmed qualitative test result for the clinical management of patients in emergency situations. Chain of custody not maintained. Some rbor-fco-frdjgno medications, as well as adulterants, may cause inaccurate results. Clinical correlation should be applied. A more comprehensive drug screen or confirmation of a detected drug may be performed upon request.CBC W/PLT COUNT & AUTO [id number] 12:40:00 Test Item Value Reference Range Interpretation Comments WHITE BLOOD CELL COUNT (BEAKER) 8.7 K/ L 3.5-10.5 (test code = 775) RED BLOOD CELL COUNT (BEAKER) 4.01 M/ L 3.93-5.22 (test code = 761) HEMOGLOBIN (BEAKER) (test code = 12.6 GM/DL 11.2-15.7 410) HEMATOCRIT (BEAKER) (test code = 39.3 % 34.1-44.9 411) MEAN CORPUSCULAR VOLUME (BEAKER) 98.0 fL 79.4-94.8 H (test code = 753) MEAN CORPUSCULAR HEMOGLOBIN 31.4 pg 25.6-32.2 (BEAKER) (test code = 751) MEAN CORPUSCULAR HEMOGLOBIN CONC 32.1 GM/DL 32.2-35.5 L (BEAKER) (test code = 752) RED CELL DISTRIBUTION WIDTH 14.3 % 11.7-14.4 (BEAKER) (test code = 412) PLATELET COUNT (BEAKER) (test 212 K/CU MM 150-450 code = 756) MEAN PLATELET VOLUME (BEAKER) 10.0 fL 9.4-12.3 (test code = 754) NUCLEATED RED BLOOD CELLS 0 /100 WBC 0-0 (BEAKER) (test code = 413) NEUTROPHILS RELATIVE PERCENT 65 % (BEAKER) (test code = 429) LYMPHOCYTES RELATIVE PERCENT 25 % (BEAKER) (test code = 430) MONOCYTES RELATIVE PERCENT 7 % (BEAKER) (test code = 431) EOSINOPHILS RELATIVE PERCENT 2 % (BEAKER) (test code = 432) BASOPHILS RELATIVE PERCENT 0 % (BEAKER) (test code = 437) NEUTROPHILS ABSOLUTE COUNT 5.70 K/ L 1.56-6.13 (BEAKER) (test code = 670) LYMPHOCYTES ABSOLUTE COUNT 2.18 K/ L 1.18-3.74 (BEAKER) (test code = 414) MONOCYTES ABSOLUTE COUNT (BEAKER) 0.59 K/ L 0.24-0.36 H (test code = 415) EOSINOPHILS ABSOLUTE COUNT 0.17 K/ L 0.04-0.36 (BEAKER) (test code = 416) BASOPHILS ABSOLUTE COUNT (BEAKER) 0.02 K/ L 0.01-0.08 (test code = 417) IMMATURE GRANULOCYTES-RELATIVE 1 % 0-1 PERCENT (BEAKER) (test code = 2801) [id number] 12:12:00 Test Item Value Reference Range Interpretation Comments PHOSPHORUS (BEAKER) (test code = 3.0 mg/dL 2.3-4.7 604) [id number] 12:12:00 Test Item Value Reference Range Interpretation Comments MAGNESIUM (BEAKER) (test code = 2.1 mg/dL 1.6-2.6 627) BASIC METABOLIC [id number] 12:12:00 Test Item Value Reference Range Interpretation Comments SODIUM (BEAKER) 138 meq/L 136-145 (test code = 381) POTASSIUM (BEAKER) 3.7 meq/L 3.5-5.1 (test code = 379) CHLORIDE (BEAKER) 104 meq/L 98-107 (test code = 382) CO2 (BEAKER) (test 25 meq/L 22-29 code = 355) BLOOD UREA NITROGEN 8 mg/dL 7-21 (BEAKER) (test code = 354) CREATININE (BEAKER) 0.72 mg/dL 0.57-1.25 (test code = 358) GLUCOSE RANDOM 93 mg/dL 70-105 (BEAKER) (test code = 652) CALCIUM (BEAKER) 9.1 mg/dL 8.4-10.2 (test code = 697) EGFR (BEAKER) (test 87 mL/min/1.73 ESTIMA GURVINDER GFR IS code = 1092) sq m NOT ACCURATE CREATININE CLEARANCE IN PREDICTING GLOMERULAR FILTRATION RATE . ESTIMATED GFR I S NOT APPLICABLE FOR DIALYSIS PATIEN TS. HEPATIC FUNCTION [id number] 12:12:00 Test Item Value Reference Range Interpretation Comments TOTAL PROTEIN (BEAKER) (test code = 6.4 gm/dL 6.0-8.3 770) ALBUMIN (BEAKER) (test code = 1145) 3.9 g/dL 3.5-5.0 BILIRUBIN TOTAL (BEAKER) (test code 0.5 mg/dL 0.2-1.2 = 377) BILIRUBIN DIRECT (BEAKER) (test 0.2 mg/dL 0.1-0.5 code = 706) ALKALINE PHOSPHATASE (BEAKER) (test 78 U/L 40-150 code = 346) AST (SGOT) (BEAKER) (test code = 14 U/L 5-34 353) ALT (SGPT) (BEAKER) (test code = 12 U/L 6-55 347) LACTIC ACID, VENOUS, WHOLE [id number] 12:08:00 Test Item Value Reference Range Interpretation Comments LACTATE BLOOD VENOUS 0.8 mmol/L 0.5-2.2 Specime n moderately (2) (BEAKER) (test hemolyzed code = 0148) URINALYSIS W/ REFLEX URINE [id number] 11:10:00 Test Item Value Reference Range Interpretation Comments COLOR (BEAKER) (test code = 470) Light Yellow CLARITY (BEAKER) (test code = Clear 469) SPECIFIC GRAVITY UA (BEAKER) 1.020 1.001-1.035 (test code = 468) PH UA (BEAKER) (test code = 467) 6.5 5.0-8.0 PROTEIN UA (BEAKER) (test code = Negative Negative 464) GLUCOSE UA (BEAKER) (test code = Negative Negative 365) KETONES UA (BEAKER) (test code = Negative Negative 371) BILIRUBIN UA (BEAKER) (test code Negative Negative = 462) BLOOD UA (BEAKER) (test code = Negative Negative 461) NITRITE UA (BEAKER) (test code = Negative Negative 465) LEUKOCYTE ESTERASE UA (BEAKER) Negative Negative (test code = 466) UROBILINOGEN UA (BEAKER) (test 0.2 mg/dL 0.2-1.0 code = 463) RBC UA (BEAKER) (test code = < /HPF 519) WBC UA (BEAKER) (test code = 0 /HPF 520) SQUAMOUS EPITHELIAL (BEAKER) < /HPF (test code = 516) SOURCE(BEAKER) (test code = 2795) CT ABDOMEN/PELVIS [id number] 14:26:00[place] [id number] IMAGING REPORTPatient Name: Manuel DEL TORO of Service: [id number]: 45 Sex: F Order #: [id number] [facility] 1970 [facility]: [id number] Record Number: [id number] Hospital Number: [id number] Physician: KISHAN MUNOZ - Ordering Physician: HERNANDEZ [...] PMLegally authenticated by TIFFANIE Syed 2016-07-26 14:23:48CT ABDOMEN/PELVIS [id number] 02:49:[address]IAGNO[address] IMAGING REPORTPatient Name: Manuel DEL TORO of Service: [id number]: 45 Sex: F Order #: [id number] Room[facility] 2NEDOB: 1970 X-Ray Number: [id number] Record Number: [id number] Hospital Number: [id number] Physician: BLAKE ALLEN -Ordering Physician: AURORA LOWERY abdomen and pelvis without IV contrast, with GI contrast 1842 hours07/16/2016HISTORY: Abdominal pain with nause a, history of Crohn's disease, multipleprior surgeriesCOMPARISON: NoneFINDINGS: [...] authenticated by MARTINEZ VALDEZ 2016-07-17 02:47:19ABDOMEN 2 [id number] 12:14:00[place] [id number] IMAGING REPORTPat ient Name: Manuel DEL TORO of Service: [id number]: 45 Sex: F Order #: [id number] [facility] 1970 [facility] Number: [id number] Record Number: [id number] Hospital Number: [id number] Physician: ANMOL TEJEDAOrdering Physician: Elvis GARCIA 2 views 07/15/2016 at11:40 AM.History: 45-year-old female. Abdominal pain. Left upper quadrant pain.History of Crohn's disease. Previous cholecystectomy, hysterectomy andintestinal surgery.Comparison: No comparison exam isavailable.Findings:A total of 4 images are submitted.There are cholecystectomy clips in the right upper quadrant. There is anintrathecal catheter with a reservoir projecting over the right ilium.There is very little feces in the colon. There are several loops ofair- filled, mildly prominent small bowelwith a few air-fluid levels. Thisis probably related to ileus but recommend follow-up to rule out adeveloping obstruction. There are calcifications but they are felt to bevascular. The regional skeleton is intact. The lung bases are clear.Impression:1. Probable ileus.2. However, recommend follow-up asclinically warranted to rule out adeveloping obstruction.Electronically Signed By: Raymond James M.D., 07/15/2016 12:12 Shaheen authenticated by RAFA GALVAN 2016-07-15 12:12:28
--- OUTSIDE RECORDS SUMMARY | 2019-12-01 11:16 | XMS REPORT | Encounter Summary ---
:1970 Author Care Team Providers Name Role Phone Mychal Dai MD Primary Care Provider [phone] Jake Franco Automatic Mounter [phone] Reason for Visit toe problems; swelling Instructions 1. Edema of lower extremity leg and ankle edema: care instructions US, doppler, venous BNP (B-type natriuretic pe ptide), serum or plasma 2. Dysuria urinalysis, dipstick painful urination (dysuria ): care instructions 3. Pain in left knee XR, knee, 3 view naproxen 500 mg tablet 4. Onychomycosis of toenails CMP, serum or plasma ciclopirox 8 % topical oliva ution Discussion Note RTC for any other concerns Plan of Care Patient Instructions will check labs, xray and doppler; consider diuretic; ensure adequate rest, hydration and nutrition Reminders Provider Appointments Repeat Pap Ronen Franco, 11/12/2019 10:30AM Lab Urinalysis, In-Ho use Results Dipstick 10/15/2019 CMP, Serum or [place] Plasma 10/15/2019 [facility] (Labs) (X ray) BNP (B-type [place] Natriuretic Peptide), 10/17/2019 [facility] Serum or Plasma Center (Labs) (X ray) Referral None recorded. Procedures None recorded. Surgeries None recorded. Imaging US, Doppler, [place] waldo Venous 10/15/2019 [facility] (Scheduli ng) XR, Knee, 3 [place] View 10/15/2019 [facility] (Scheduli ng) Medications Name Start Date baclofen 10 mg tablet TAKE 1 TABLET BY MOUTH THREE TIMES DAILY buspirone 15 mg tablet ciclopirox 8 % topical solution APPLY TO THE AFFECTED AREA(S) BY TOPICA L ROUTE ONCE DAILY PREFERABLY AT BEDTIME OR 8 HOURS BEFORE WASHING clonazepam 1 mg tablet 1 TAB PO FOUR TIMES A DAILY NEEDED dicyclomine 10 mg capsule escitalopram 10 mg tablet estradiol 1 mg tablet take one tab p.o. q day fluconazole 100 mg tablet gabapentin 300 mg capsule Take 1 capsule 3 times a day by oral route for 30 day s. hydrochlorothiazide 25 mg tablet Take 1 tablet every day by oral route. montelukast 10 mg tablet Take 1 tablet every day by oral route. naproxen 500 mg tablet Take 1 tablet twice a day by oral route. Narcan 4 mg/actuation nasal spray 1 spray in one nostril Q 2-3 min until responsive or EMS arrives pantoprazole 40 mg tablet,delayed release 1 TAB PO QD quetiapine 50 mg tablet Stelara 90 mg/mL subcutaneous syringe sucralfate 1 gram tablet Medications Administered None recorded. Vitals Height Weight BMI Blood Pressure 62 in 151 lbs 16 oz 27.8 kg/m2 135/94 mm[Hg] Results Lab Results Date Name Specimen Result Interpretation Description Value Range Status Address 10/15/2019 CMP, Serum Normal Glucose 90 mg/dL 74-106 Final [place] or Plasma mg/dL [facility] (Lab): [address] [place] [address] Normal Blood Urea 12 mg/dL 6-20 Final [place] Nitrogen mg/dL [facility] (Lab): [address] [place] [address] Normal Osmolality 282 280-300 Final [place]do Calculated,ser mOsm/kg mOsm/kg [facility] (Lab): [address] [place] [address] Normal Creatinine 0.8 mg/dL 0.50-0.9 Final [place] 0 mg/dL [facility] (Lab): [address] [place] [address] Normal Glomerular >60.00 Final [place] Filtration [facility] (Lab): [address] [place] [address] Normal BUN/creatinin 15.0 12-20 Final [place] Ratio [facility] (Lab): [address] [place] [address] Normal Sodium Level 142 mmol/L 135-145 Final [place] mmol/L [facility] (Lab): [address] [place] [address] Normal Potassium 4.1 mmol/L 3.5-5.2 Final [place] mmol/L [facility] (Lab): [address] [place] [address] Normal Chloride 106 mmol/L 98-108 Final [place] mmol/L [facility] (Lab): [address] [place] [address] Normal Co2 26 mmol/L 21-32 Final [place] mmol/L [facility] (Lab): [address] [place] [address] Normal Anion Gap 14.1 mEq/L 12-20 Final [place] mEq/L [facility] (Lab): [address] [place] [address] Normal Calcium Level 8.9 mg/dL 8.6-10.0 Caryn l [place] mg/dL [facility] (Lab): [address] [place] [address] Normal Total Protein 6.6 g/dL 6.6-8.7 Final [place] g/dL [facility] (Lab): [address] [place] [address] Normal Albumin 3.8 g/dL 3.5-5.2 [facility] (Lab): [address] [place] [address] Normal Globulin 2.8 gm/dL Final [facility] (Lab): [address] [place] [address] Normal A/g Ratio 1.[address] >[address] [facility] (Lab): [address] [place] [address] Normal Bilirubin,tot <0.3 mg/dL 0.0-1.2 Caryn l [place] al mg/dL [facility] (Lab): [address] [place] [address] Normal AST/SGOT 21 U/L 15-32 Final [place] U/L [facility] (Lab): [address] [place] [address] Normal ALT/SGPT 17 U/L 0-33 U/L Final [facility] (Lab): [address] [place] [address] Normal Alkaline 89 U/L 35-105 Final [facility] da Phosphatase, U/L [facility] (Lab): [address] [place] [address] 10/15/2019 Urinalysis Leukocytes Negative In-House , Dipstick Result s: For Internal Use Only Nitrite negative In-Jeremiah se Results: For Internal Use Only Urobilinogen 1 In- House Results: For Internal Use Only Protein Trace In-House Results: For Internal Use Only Ph 6.0 In-House Results: For Internal Use Only Blood Negative In-House Results: For Internal Use Only Specific 1.030 In-Hous e [place] Results: For Internal Use Only Ketone Negative In-Hous e Results: For Internal Use Only Bilirubin Small In-Jeremiah se Results: For Internal Use Only Glucose Negative In-Jeremiah se Results: For Internal Use Only Appearance Clear In-Ho use Results: For Internal Use Only Color Dark In-House Yellow Results: For Internal Use Only Allergies Code Code System Name Reaction Severity Status Onset 20341001 RxNorm Cipro Other Severe Active 15210508 RxNorm Phenergan Facial Moderate Active Swelling Problems Name Status Onset Date Source Chronic Pain Active 08/15/2018 Gastroesophageal Reflux Disease Active 08/15/2018 Crohn's Disease of Small Intestine Active 08/15/2018 Endometriosis (Clinical) Active 08/15/2018 Multiple Joint Pain Active 08/15/2018 Skin Tag Active 10/17/2018 [place]'s Disease Active 11/19/2018 Persistent Insomnia Active 12/07/2018 Urinary Tract Infectious Disease Active 12/17/2018 Acute Cystitis Active 12/28/2018 Candidiasis of Vagina Active 01/07/2019 Postsurgical Menopause Active 01/07/2019 Atypical Squamous Cells of Undetermined Active 01/11/20 19 Significance on Vaginal Papanicolaou Smear HPV - Human 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 Active 019 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, High Risk on Vaginal Specimen Pruritus of Vulva Active 02/12/2019 Peripheral Nerve Disease Active 05/08/2019 Procedures Date Name Performed by 05/01/2006 Hysterectomy Information not avai lable Large Intestine Excision Information not available Cholecystectomy Information not avai lable 10/15/2019 US, Doppler, Venous [facility] (Scheduling) [address] [place] [address] (Work [address]) 10/15/2019 XR, Knee, 3 View [facility] (Scheduling) [address] [place] [address] (Work [address]) Vaccine List Vaccine Type influenza, injectable, quadrivalent, pre servative free 05/08/2019 Social History Tobacco Smoking Status Former Smoker (1 PPD) Past Encounters 10/15/2019 Edema of Lower Extremity; Dysuria; Pain in Left Knee; Onychomycosis of Toenails 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 History of Present Illness Note: pt to clinic for swelling to left lower leg; she reports swelling to knee as well; she states right has some swelling as well but not as bad; she reports when has flare of crohn's disease sometimesswells; she has had diarrhea as well; she denies any injury or trauma; pt also reports thickening oftoenails; she has been taking advil 800mg; she sees pain management; has not been able to have pain pump increased because has not gone to see them in clinic; denies any recent car travel; she has beensitting at home more than usual; denies any cp, sob Review of Systems General Adult ROS Reported By: Patient Constitutional: Constitutional: no fever Cardiovascular: Cardiovascular: no chest marcela n, no palpitations Respiratory: Respiratory: no cough, no wh eezing, no shortness of breath Gastrointestinal: Gastrointestinal: no vomitin g, abdominal pain, frequent diarrhea Genitourinary: Genitourinary: difficulty ur inating Musculoskeletal: Musculoskeletal: arthralgias /joint pain, swelling in the extremities Integumentary: Skin: no rashes Neurologic: Neurologic: no dizziness, no headaches Endocrine: Endocrine: no fatigue Physical Exam Vesta Brief Adult Exam - M/F Reported By: Patient Constitutional: General Appearance: healthy- appearing, well-nourished, well-developed. Level of Dis tress: NAD. Ambulation: ambulation with walker Psychiatric: Mental Status: active and al ert Lungs: Auscultation: breath sounds normal Cardiovascular: Heart Auscultation: RRR, nor mal S1, normal S2, no murmurs Abdomen: Bowel Sounds: normal. Inspec tion and Palpation: soft, non-distended, no guarding; generalized ten derness Musculoskeletal: Edema present; 2+ edema in l eft lower extremity; 1+ edema in right lower extremity; swelling to left knee; tenderness with extension and flexion
--- OUTSIDE RECORDS SUMMARY | 2019-12-01 11:16 | XMS REPORT | Encounter Summary ---
:1970 Author Care Team Providers Name Role Phone Mychal Dai MD Primary Care Provider [phone] Jake Franco White Hat Hacker [phone] Reason for Visit None recorded. Instructions 1. Gouty arthropathy gout: care instructions uric acid, serum or plasma C reactive protein, QN, se rum or plasma ESR (erythrocyte sedimenta tion rate), blood 2. Overweight when you are overweight: c are instructions 3. Low back pain baclofen 10 mg tablet Discussion Note: None recorded. Plan of Care Patient Instructions Clean eating and increase walking w hen able. 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 (Labs) (X ray) ESR (Erythrocyte [place] Sedimentation Rate), Blood 11/07/2019 [facility] (Labs) (X ray) Referral None recorded. Procedures None recorded. Surgeries None recorded. Imaging None recorded. Medications Name Start Date baclofen 10 mg tablet TAKE 1 TABLET BY MOUTH THREE TIMES DAILY buspirone 15 mg tablet ciclopirox 8 % topical solution APPLY TO THE AFFECTED AREA(S) BY TOPICA L ROUTE ONCE DAILY PREFERABLY AT BEDTIME OR 8 HOURS BEFORE WASHING clonazepam 1 mg tablet 1 TAB PO FOUR TIMES A DAILY NEEDED escitalopram 10 mg tablet estradiol 1 mg tablet take one tab p.o. q day gabapentin 300 mg capsule Take 1 capsule 3 times a day by oral route for 30 day s. hydrochlorothiazide 25 mg tablet Take 1 tablet every day by oral route. methylprednisolone 4 mg tablets in a dose pack montelukast 10 mg tablet Take 1 tablet every day by oral route. Narcan 4 mg/actuation nasal spray 1 spray in one nostril Q 2-3 min until responsive or EMS arrives pantoprazole 40 mg tablet,delayed release 1 TAB PO QD quetiapine 50 mg tablet Reclast 5 mg/100 mL intravenous piggyback Inject by intravenous route. Stelara 90 mg/mL subcutaneous syringe sucralfate 1 gram tablet terbinafine HCl 250 mg tablet Take 1 tablet every day by oral route. Medications Administered None recorded. Vitals Height Weight BMI Blood Pressure 62 in 148 lbs 1 oz 27.1 kg/m2 105/73 mm[Hg] Results Lab Results Date Name Specimen Result Interpretation Description Value Range Status Address 10/15/2019 CMP, Serum Normal Glucose 90 mg/dL 74-106 Final [place] or Plasma mg/dL [facility] (Lab): [address] [place] [address] Normal Blood Urea 12 mg/dL 6-20 Final [place] Nitrogen mg/dL [facility] (Lab): [address] [place] [address] Normal Osmolality 282 280-[address] [facility] waldo Calculated,ser mOsm/kg mOsm/kg [facility] (Lab): [address] [place] [address] Normal Creatinine 0.8 mg/dL 0.50-0.9 Final [place] 0 mg/dL [facility] (Lab): [address] [place] [address] Normal Glomerular >60.00 Final [place] Filtration [facility] (Lab): [address] [place] [address] Normal BUN/creatinin 15.0 12-20 Final [place] Ratio [facility] (Lab): [address] [place] [address] Normal Sodium Level 142 mmol/L 135-145 Final [place] mmol/L [facility] (Lab): [address] [place] [address] Normal Potassium 4.1 mmol/L 3.5-5.2 Final [place] Level mmol/L [facility] (Lab): [address] [place] [address] Normal Chloride 106 mmol/L 98-108 Final [place] Level mmol/L [facility] (Lab): [address] [place] [address] Normal Co2 26 mmol/L 21-32 Final [place] mmol/L [facility] (Lab): [address] [place] [address] Normal Anion Gap 14.1 mEq/L 12-20 Final [place] mEq/L [facility] (Lab): [address] [place] [address] Normal Calcium Level 8.9 mg/dL 8.6-10.0 Caryn l [place] mg/dL [facility] (Lab): [address] [place] [address] Normal Total Protein 6.6 g/dL 6.6-8.7 Final [place] g/dL [facility] (Lab): [address] [place] [address] Normal Albumin 3.8 g/dL 3.5-5.2 Final [facility] orda g/dL [facility] (Lab): [address] [place] [address] Normal Globulin 2.8 gm/dL [facility] [address] [place] [address] Normal A/g Ratio 1.4 >1.0 Final [facility] (Lab): [address] [place] [address] Normal Bilirubin,tot <0.3 mg/dL 0.0-1.2 Caryn l [place] al mg/dL [facility] (Lab): [address] [place] [address] Normal AST/SGOT 21 U/L 15-32 [facility] (Lab): [address] [place] [address] Normal ALT/SGPT 17 U/L 0-33 U/L Final [facility] (Lab): [address] [place] [address] Normal Alkaline 89 U/L 35-[address] [facility] da Phosphatase, U/L [facility] (Lab): [address] [place] [address] 10/15/2019 Urinalysis Leukocytes Negative In-House , Dipstick Result s: For Internal Use Only, Do Not Delete/alhaji g e Nitrite negative In-Jeremiah se Results: For Internal Use Only, Do Not Delete/alhaji g e Urobilinogen 1 In- House Results: For Internal Use Only, Do Not Delete/alhaji g e Protein Trace In-House Results: For Internal Use Only, Do Not Delete/alhaji g e Ph 6.0 In-House Results: For Internal Use Only, Do Not Delete/alhaji g e Blood Negative In-House Results: For Internal Use Only, Do Not Delete/alhaji g e Specific 1.030 In-Hous e [place] Results: For Internal Use Only, Do Not Delete/alhaji g e Ketone Negative In-Hous e Results: For Internal Use Only, Do Not Delete/alhaji g e Bilirubin Small In-Jeremiah se Results: For Internal Use Only, Do Not Delete/alhaji g e Glucose Negative In-Jeremiah se Results: For Internal Use Only, Do Not Delete/alhaji g e Appearance Clear In-Ho use Results: For Internal Use Only, Do Not Delete/alhaji g e Color Dark In-House Yellow Results: For Internal Use Only, Do Not Delete/alhaji g e Allergies Code Code System Name Reaction Severity Status Onset 20341001 RxNorm Cipro Other Severe Active 681461 RxNorm Phenergan Facial Moderate Active Swelling Problems Name Status Onset Date Source Chronic Pain Active 08/15/2018 Gastroesophageal Reflux Disease Active 08/15/2018 Crohn's Disease of Small Intestine Active 08/15/2018 Endometriosis (Clinical) Active 08/15/2018 Multiple Joint Pain Active 08/15/2018 Skin Tag Active 10/17/2018 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 Persistent Insomnia Active 12/07/2018 [...] not avai lable 10/15/2019 US, Doppler, Venous [facility] (Scheduling) [address] [place] [address] ([address]) 10/15/2019 XR, Knee, 3 View [facility] (Scheduling) [address] [place] [address] (Work [address]) Vaccine List Vaccine Type influenza, injectable, quadrivalent, pre servative free 05/08/2019 Social History Tobacco Smoking Status Former Smoker (1 PPD) Past Encounters 11/07/2019 Gouty Arthropathy; Overweight; Low Back Pain Merari Pickett TRACK GRINDER: [address] [place] [address] [address], [place] [address], Ph. 10/15/2019 Edema of Lower Extremity; Dysuria; Pain in Left Knee; Onychomycosis of Toenails Julia Schulz, TRACK GRINDER: [address] [facility] [address], [place] [address], Ph. History of Present Illness Note: F/U need Baclofen refill for back. Saw Dr. Macedo he thinks it is gout in her left knee, started steroid dose pack. Difficulty with weight loss no change in mediations with Crohn's. Review of Systems Problem ROS - Female Reported By: Patient Constitutional: Constitutional: no significa nt weight change, good appetite, no fever, happy/content, nor mal activity level, no fatigue Eyes: Eyes: no eye pain, no blurry vision, no eye redness, no eye itchiness, no eye swelling, no eye discharge, normal movement ENMT: ENMT: no ear pain, no ear di scharge, no hearing loss, no sinus pressure, no drooling, no fa cial swelling, no congestion, no sore throat, no hoarseness, no mouth lesions Cardiovascular: Cardiovascular: no chest marcela n, normal heart rate Chest/Breasts: Breasts: no lumps, no tender ness, no discharge Respiratory: Respiratory: no cough, no wh eezing, no chest tightness, no pain with respiration, angel l respiration Gastrointestinal: GI: no difficulty swallowing , no abdominal pain, no nausea, no vomiting, no diarrhea, no co nstipation, no blood in stools, no mucous in stool Genitourinary: : no discharge, no blood i n urine, no pain with urination, no increase in frequency of urination, no voiding urgency, no vaginal discharge Musculoskeletal: Musculoskeletal: no soft tis ct swelling, no myalgia, no previous injuries, no trauma , joint swelling, limited motion Skin: Skin: no pain, no itchiness, no skin dryness, no flaking, no redness, no rash, no diaper rash, no hives, no skin lesions, no skin growths, no skin lum ps, no swelling, no bruising, no insect bites Neurological symptoms: Neuro: no numbness, no weakn ess, no tingling, no burning, no shooting pain, no headache, no dizziness, no loss of conciousness Psychiatric: Psych: no depression, no anx iety, no insomnia, no stress, no loss of interest Endocrine: Endocrine: normal drinking, no temperature intolerance Allergic/Immunologic: Allergy/Immunologic: no snee zing, no runny nose Physical Exam General Adult Exam - Female Reported By: Patient Constitutional: General Appearance: healthy- appearing, well-nourished, well-developed. Level of Dis tress: NAD. Ambulation: ambulating normally Psychiatric: Insight: good judgement. Men daniel Status: active and alert, normal mood, normal affect. Orienta tion: to time, to place, to person. Memory: recent memory normal , remote memory normal Head: Head: normocephalic, atrauma tic Eyes: Lids and Conjunctivae: non-i njected, no discharge, no pallor. Pupils: PERRLA. Corneas: florencia ssly intact. Fundoscopic: grossly normal except where noted, n ormal optic discs, normal vessels, no exudates, no hemorrhages. EO M: EOMI. Lens: clear. Sclerae: non-icteric. Vision: periphe ral vision grossly intact, acuity grossly intact ENMT: Ears: no lesions on external ear, EACs clear, TMs clear, TM mobility normal. Hearing: no hearing loss Neck: Neck: supple, trachea midlin e, no masses, FROM, no carotid bruits. Lymph Nodes: no cervical LAD , no supraclavicular LAD, no axillary LAD, no inguinal LAD. Thyroi d: no enlargement, non-tender, no nodules Lungs: Respiratory effort: no dyspn ea. Percussion: no dullness, flatness, or hyperresonance. Auscultat ion: breath sounds normal, good air movement, CTA except as note d, no wheezing, no rales/crackles, no rhonchi Cardiovascular: Apical Impulse: not displace d. Heart Auscultation: RRR, normal S1, normal S2, no murmurs, no ru bs, no gallops. Neck vessels: no carotid bruits. Pulses inclu ding femoral / pedal: normal throughout Musculoskeletal:: Motor Strength and Tone: nor mal motor strength, normal tone. Joints, Bones, and Muscles: no bony abnormalities, no contractures, no malalignment, limited ROM , tenderness. Extremities: no cyanosis, no varicosities, no palpable cord, edema Neurologic: Gait and Station: normal gai t, normal station. Cranial Nerves: grossly intact. Sensation: g rossly intact, monofilament test intact. Reflexes: DTRs 2+ bi laterally throughout. Coordination and Cerebellum: [id number] i ntact, no tremor Skin: Inspection and palpation: no rash, no lesions, no ulcer, no abnormal nevi, no induration , no nodules, good turgor, no jaundice. Nails: normal Back: Thoracolumbar Appearance: no rmal curvature
[2019-12-01 12:42] LABS: Absolute Lymphocytes (CBC) 3.6 K/uL (0.7-4.9); Basophils % 0.7 % (0-1.3); Hematocrit 48.4 % (36.0-45.0); Lymphocytes % 29.6 % (15.3-44.8); MPV 6.7 fL (7.6-11.3)
[2019-12-01] MEDS ORDERED: METHYLPREDNISOLONE 125 MG INJ ONE (12:44)
[2019-12-01] MEDS ORDERED: HYDROMORPHONE HCL 1 MG/ML INJ ONE (12:45)
[2019-12-01 12:49] LABS: ALT/SGPT 19 U/L (12-78); AST/SGOT 14 U/L (15-37); Albumin 3.5 g/dL (3.4-5.0); Alkaline Phosphatase 88 U/L (45-117); BUN Blood Urea Nitrogen 14 mg/dL (7-18); Bicarbonate 31 mmol/L (21-32); Bilirubin Direct < 0.1 mg/dL (0-0.2); Bilirubin Total 0.3 mg/dL (0.2-1.0); Glucose Level 91 mg/dL (74-106); Lipase 57 U/L (73-393); Potassium 3.8 mmol/L (3.5-5.1); Sodium Level 139 mmol/L (136-145)
--- NOTE | 2019-12-01 13:12 | ER ---
Nurse's Notes [facility] Name: Angela Rodriguez Age: 49 yrs Sex: Female : 1970 Arrival Date: 12/01/2019 Time: 11:15 Bed 18 Private MD: Diagnosis: Unspecified abdominal pain Presentation: 11/30 11:27 Chief complaint: Patient states: "I fell a month ago and my knee still hurts. I've had ss an MRI, but I just need somebody to read it. On top of that , I'm also having a Crohns flare up."C/o abd pain and diarrhea that began yesterday. Also has shingles rash on back. Coronavirus screen: Client denies travel out of the [place] in the last 14 days. At this time, the client does not indicate any symptoms associated with coronavirus-19. Ebola Screen: Patient denies exposure to infectious person. Patient denies travel to an Ebola-affected area in the 21 days before illness onset. Initial Sepsis Screen: Does the patient meet any 2 criteria? No. Patient's initial sepsis screen is negative. Does the patient have a suspected source of infection? No. Patient's initial sepsis screen is negative. Risk Assessment: Do you want to hurt yourself or someone else? Patient reports no desire to harm self or others. Onset of symptoms is unknown. 11:27 Method Of Arrival: Wheelchair 11:27 Acuity: LIZZY 3 ss Historical: - Allergies: 11:30 Ciprofloxacin; ss 11:30 Phenergan; ss - PMHx: 11:30 adrenal insufficiency; Bipolar disorder; Chronic pain; Crohn's; Endometrosis; ss Hypothyroidism; - PSHx: 11:30 Pain Pump -Dilaudid; ss - Immunization history:: Adult Immunizations up to date. - Social history:: Smoking status: Patient reports the use of cigarette tobacco products, smokes one pack cigarettes per day. Patient/guardian denies using alcohol, street drugs, The patient lives with family. - Family history:: not pertinent. Screenin:00 Abuse screen: Denies threats or abuse. Nutritional screening: No deficits noted. Tuberculosis screening: No symptoms or risk factors identified. Fall Risk None identified. Assessment: 11:45 General: Appears in no apparent distress. Behavior is calm, cooperative, appropriate ah for age. Pain: Complains of pain in left knee Pain currently is 9 out of 10 on a pain scale. Neuro: Level of Consciousness is awake, alert, obeys commands, Oriented to person, place, time, situation, Appropriate for age. Cardiovascular: Capillary refill < 3 seconds Patient's skin is warm and dry. Respiratory: Airway is patent Respiratory effort is even, unlabored, Respiratory pattern is regular, symmetrical. GI: Reports diarrhea. Derm: Skin is intact, is healthy with good turgor, Skin is dry. Musculoskeletal: Circulation, motion, and sensation intact. Capillary refill < 3 seconds, Swelling present in left knee. Vital Signs: 11:27 BP 94 / 65; Pulse 95; Resp 17; Temp 98.0(TE); Pulse Ox 95% on R/A; Weight 68.04 kg; ss Height 5 ft. 2 in. (157.48 cm); Pain 10/10; 11:27 Body Mass Index 27.44 (68.04 kg, 157.48 cm) ED Course: 11:15 Patient arrived in ED. fj1 11:30 Triage completed. ss 11:30 Arm band placed on right wrist. ss 11:39 Rosendo Magaña MD is Attending Physician. ma2 12:00 Initial lab(s) drawn, by me, sent to lab. jp3 12:00 Missed attempt(s): 20 gauge in right hand. Bleeding controlled, band aid applied, jp3 catheter tip intact. 12:28 Jocelyn Mcmillan, RN is Primary Nurse. ah 12:30 Inserted saline lock: 22 gauge in left forearm, using aseptic technique. Blood ss collected. 12:55 Bed in low position. Call light in reach. Side rails up X 1. Warm blanket given. Verbal jp3 reassurance given. Pulse ox on. NIBP on. 14:00 No provider procedures requiring assistance completed. IV discontinued, intact, ss bleeding controlled, No redness/swelling at site. Pressure dressing applied. Administered Medications: 13:00 Drug: MethylPrednisoLONE 125 mg Route: IVP; Site: left forearm; 14:00 Follow up: Response: No adverse reaction 13:00 Drug: Dilaudid 1 mg Route: IVP; Site: left forearm; 14:00 Follow up: Response: No adverse reaction; Pain is decreased Outcome: 13:12 Discharge ordered by . ma2 14:00 Discharged to home ambulatory. 14:00 Condition: good 14:00 Discharge instructions given to patient, Instructed on discharge instructions, follow up and referral plans. medication usage, Demonstrated understanding of instructions, follow-up care, medications, Prescriptions given X 3. 14:01 Patient left the ED. Signatures: Alena Youngblood, RN RN Rosendo Magaña MD MD ma2 James Ribera 3 James Marinelli 1 Jocelyn Mcmillan, RN RN
--- NOTE | 2019-12-01 13:13 | EDPHYS ---
Physician Documentation [facility] Name: Angela Rodriguez Age: 49 yrs Sex: Female : 1970 Arrival Date: 12/01/2019 Time: 11:15 Bed 18 Private MD: ED Physician Rosendo Magaña HPI: 11/30 13:08 This 49 yrs old Female presents to ER via Wheelchair with complaints of ma2 CROHNS FLARE,KNEE PAIN AND RIB PAIN. 13:08 The patient presents with abdominal pain. Onset: The symptoms/episode began/occurred ma2 gradually, 1 week(s) ago. Associated signs and symptoms: Pertinent negatives: anorexia, chest pain, diarrhea, fever, headache, shortness of breath, vaginal discharge, vomiting blood. Severity of pain: At its worst the pain was mild in the emergency department the pain is unchanged. The patient has not experienced similar symptoms in the past. Historical: - Allergies: 11:30 Ciprofloxacin; ss 11:30 Phenergan; ss - PMHx: 11:30 adrenal insufficiency; Bipolar disorder; Chronic pain; Crohn's; Endometrosis; ss Hypothyroidism; - PSHx: 11:30 Pain Pump -Dilaudid; ss - Immunization history:: Adult Immunizations up to date. - Social history:: Smoking status: Patient reports the use of cigarette tobacco products, smokes one pack cigarettes per day. Patient/guardian denies using alcohol, street drugs, The patient lives with family. - Family history:: not pertinent. ROS: 13:08 Constitutional: Negative for fever, chills, and weight loss, Cardiovascular: Negative ma2 for chest pain, palpitations, and edema, Respiratory: Negative for shortness of breath, cough, wheezing, and pleuritic chest pain, Abdomen/GI: Negative for abdominal pain, nausea, diarrhea, and constipation, Back: Negative for injury and pain. 13:08 All other systems are negative. Exam: 13:08 Constitutional: This is a well developed, well nourished patient who is awake, alert, ma2 and in no acute distress. Head/Face: Normocephalic, atraumatic. Eyes: Pupils equal round and reactive to light, extra-ocular motions intact. Lids and lashes normal. Conjunctiva and sclera are non-icteric and not injected. Cornea within normal limits. Periorbital areas with no swelling, redness, or edema. ENT: Nares patent. No nasal discharge, no septal abnormalities noted. Tympanic membranes are normal and external auditory canals are clear. Oropharynx with no redness, swelling, or masses, exudates, or evidence of obstruction, uvula midline. Mucous membranes moist. Neck: Trachea midline, no thyromegaly or masses palpated, and no cervical lymphadenopathy. Supple, full range of motion without nuchal rigidity, or vertebral point tenderness. No Meningismus. Chest/axilla: Normal chest wall appearance and motion. Nontender with no deformity. No lesions are appreciated. Cardiovascular: Regular rate and rhythm with a normal S1 and S2. No gallops, murmurs, or rubs. Normal PMI, no JVD. No pulse deficits. Respiratory: Lungs have equal breath sounds bilaterally, clear to auscultation and percussion. No rales, rhonchi or wheezes noted. No increased work of breathing, no retractions or nasal flaring. Abdomen/GI: Soft, non-tender, with normal bowel sounds. No distension or tympany. No guarding or rebound. No evidence of tenderness throughout. Back: No spinal tenderness. No costovertebral tenderness. Full range of motion. Skin: Warm, dry with normal turgor. Normal color with no rashes, no lesions, and no evidence of cellulitis. MS/ Extremity: Pulses equal, no cyanosis. Neurovascular intact. Full, normal range of motion. Neuro: Awake and alert, GCS 15, oriented to person, place, time, and situation. Cranial nerves II-XII grossly intact. Motor strength 5/5 in all extremities. Sensory grossly intact. Cerebellar exam normal. Normal gait. Vital Signs: 11:27 BP 94 / 65; Pulse 95; Resp 17; Temp 98.0(TE); Pulse Ox 95% on R/A; Weight 68.04 kg; ss Height 5 ft. 2 in. (157.48 cm); Pain 10/10; 11:27 Body Mass Index 27.44 (68.04 kg, 157.48 cm) ss MDM: 11:39 Patient medically screened. ma2 13:08 Differential diagnosis: Irritable bowel syndrome, non-specific abd pain, pancreatitis, ma2 urinary tract infection. 13:11 Data reviewed: vital signs, nurses notes. Counseling: I had a detailed discussion with compa the patient and/or guardian regarding: the historical points, exam findings, and any diagnostic results supporting the discharge/admit diagnosis, the presence of at least one elevated blood pressure reading (>120/80) during this emergency department visit, the need for outpatient follow up. Response to treatment: the patient's symptoms have markedly improved after treatment. 11/30 11:53 Order name: Basic Metabolic Panel; Complete Time: 13:08 [facility] 11/30 11:53 Order name: CBC with Diff; Complete Time: 13:08 [facility] 11/30 11:53 Order name: Hepatic Function; Complete Time: 13:08 [facility] 11/30 11:53 Order name: Lipase; Complete Time: 13:08 [facility] 11/30 11:53 Order name: IV Saline Lock; Complete Time: 12:55 [facility] 11/30 11:53 Order name: Labs collected and sent; Complete Time: 12:55 [facility] Administered Medications: 13:00 Drug: MethylPrednisoLONE 125 mg Route: IVP; Site: left forearm; 14:00 Follow up: Response: No adverse reaction 13:00 Drug: Dilaudid 1 mg Route: IVP; Site: left forearm; 14:00 Follow up: Response: No adverse reaction; Pain is decreased Disposition: 12/01/19 13:12 Discharged to Home. Impression: Unspecified abdominal pain. - Condition is Stable. - Discharge Instructions: Abdominal Pain, Adult. - Prescriptions for Diclofenac Sodium 75 mg Oral Tablet Sustained Release - take 1 tablet by ORAL route 2 times per day; 30 tablet. Medrol (Mitchell) 4 mg Oral Tablets, Dose Pack - take 1 tablet by ORAL route as directed - follow package instructions; 1 packet. Tylenol- Codeine #3 300-30 mg Oral Tablet - take 2 tablet by ORAL route every 6 hours As needed; 6 tablet. - Medication Reconciliation Form, Thank You Letter, Antibiotic Education, Prescription Opioid Use form. - Follow up: Private Physician; When: Tomorrow; Reason: Continuance of care. Signatures: [facility] Alena Kramer RN RN Rosendo Magaña MD MD [facility] Jocelyn Mcmillan RN RN Corrections: (The following items were deleted from the chart) 14:01 13:12 12/01/2019 13:12 Discharged to Home. Impression: Unspecified abdominal pain. ss Condition is Stable. Forms are Medication Reconciliation Form, Thank You Letter, Antibiotic Education, Prescription Opioid Use. Follow up: Private Physician; When: Tomorrow; Reason: Continuance of care. ma2
[2019-12-01 14:07] VITALS: BP 94/65; TEMP 98; O2SAT 95
== END 2019-12-01 14:01 | disposition home or self-care (01) ==
LOC: ER 11:08
DX: R10.9 Unspecified abdominal pain (principal); G89.29 Other chronic pain; F17.210 Nicotine dependence, cigarettes, uncomplicated; Z88.1 Allergy status to other antibiotic agents; Z88.8 Allergy status to other drugs, medicaments and biological substances
CPT/HCPCS: 85025; 80048; 36415; 80076; 83690; J1170; J2930; 96374; 96375; 99284

== ENCOUNTER 2020-09-10 15:18 | Emergency (ER) | payer OTHER ==
--- OUTSIDE RECORDS SUMMARY | 2020-09-10 15:29 | XMS REPORT | Continuity of Care Document ---
:1970 Author Organization [facility] t Address [address] [place] [address] Care Team Providers Name Role Phone Irving Dai MD Primary Care Physician DR SHAILESH Attending Clinician Unavailable Gregory Short Attending Clinician Be Singer MD Attending Clinician NISH Attending Clinician Unavailable Nish MOTLEY Attending Clinician Marylin Mason MD Attending Clinician Marifer Medina CRNA Attending Clinician Jaime MOTLEY Attending Clinician Jessenia Maldonado MD Attending Clinician Amaya MOTLEY, H. Attending Clinician Adryan VERA Attending Clinician Unavailable Francheska HARE Attending Clinician Unavailable Zuri Dalal MD Attending Clinician Javon MOTLEY Attending Clinician Nish MOTLEY Attending Clinician Laney Daniels MD Attending Clinician GABRIELA GAY Attending Clinician Unavailable JAVON Attending Clinician Unavailable Jocelyn DICKINSON Attending Clinician Unavailable MARY MANCINI Attending Clinician Unavailable Brody Childers Attending Clinician Vic Attending Clinician LUZ MARIAMED, - Attending Clinician Unavailable Lidia Henderson Attending Clinician Rob Dunn Attending Clinician Lucas Cabrales Attending Clinician Natalie Lara Attending Clinician Blanca Attending Clinician Rose Marie Joyner Attending Clinician MOOK Attending Clinician Unavailable DR SHAILESH Admitting Clinician Unavailable NISH Admitting Clinician Unavailable GABRIELA GAY Admitting Clinician Unavailable JAVON Admitting Clinician Unavailable Laney GARCIA Admitting Clinician Unavailable MARY MANCINI Admitting Clinician Unavailable Vic Admitting Clinician ALEJANDRO, - Admitting Clinician Unavailable OEI Admitting Clinician Unavailable Payers Payer Name Policy Type Policy Effective Date Expiration Date Sour ce Number [facility] [id number] 2019 Jeremiah long MEDICARE PPO/PFFS/ERS 00:00:00 Met letitia [id number] 2019- PresentPPO MEDICAIDMEDICAIDxxxxx [id number] Jeremiah richardsonfrancisca [id number] 2017-PresentM 00:00:00 Met letitia yang HUMANA - MEDICARE MGD [id number] 2019 [facility] MEDICARE 00:00:00 - Med ical [id number] 2019- [address] PresentMaps Contracted DIAZ [id number] 2017 [facility] MEDICAIDMEDICAID 00:00:00 - Medica l [id number] 18-Present Problems Condition Condition Condition Status Onset Resolution Last Treating Co mments Source Name Details Category Date Date Treatment Clinician Date , Diagnosis Active 0 2020-08-04 Mem oria M25.561, 3-15 16:47:[place] [address], 00:00: Delong RIGHT KNEE M25.561, 00 PAIN IN RIGHT KNEE Active 07/13/2020 [facility] M17.12 - Diagnosis Active 2020-05-11 M emoria UNILATERAL 1-04 10:01:00 l PRIMARY M17.12 - 00:00: Prachi nn OSTEOARTHR UNILATERAL 00 IT PRIMARY OSTEOARTHR IT Active [facility] Avascular Avascular Problem Active 2019-05 [facility] necrosis Necrosis 0-13 da of bone of Bone 00:00: Medical 00 Group Lack or Lack or Problem Active [place] loss of Loss of 9-18 da sexual Sexual 00:00: Medical desire Desire 00 Group Dyspareuni Dyspareuni Problem Active [facility] a a 9-18 da 00:00: Medical 00 Group Menopausal Menopausal Problem Active M [facility] syndrome Syndrome 9-18 da 00:00: Medical 00 Group Localized Localized Disease Active Jeremiah long osteoporos osteoporos 6-08 Me thodi is without is without 00:00: st current current 00 pathologic pathologic al al fracture fracture Peripheral Peripheral Problem Active at[facility] nerve Nerve 1-08 da disease Disease 00:00: Medical 00 Group Low serum Low serum Disease Active 2018-05 Jeremiah stofrancisca cortisol cortisol 0-16 Method i level level [...] 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 9-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 Cells of 00:00: Medica l undetermin Undetermin 00 Gr oup ed ed significan Significan ce on ce on vaginal Vaginal Papanicola Papanicola ou smear ou Smear Candidiasi Candidiasi Problem Active M at[place] s of s of 9-09 da vagina Vagina 00:00: Medical 00 Group Postsurgic Postsurgic Problem Active 2019 M [place] al al 9-09 da menopause Menopause 00:00: Medi payam 00 Group Acute Acute Problem Active [place] cystitis Cystitis 8-30 da 00:00: Medical 00 Group Urinary Urinary Problem Active [place] tract Tract 8-19 da infectious Infectious 00:00: Me dical disease Disease 00 Group Persistent Persistent Problem Active M [facility] insomnia Insomnia 8- da 00:00: Medical 00 Group Golden's [place]'s Problem Active [facility] [place] disease Disease 7- da 00:00: Medical 00 Group Abdominal Abdominal Disease Active [facility] Skin tag Skin Tag Problem Active [facility] [facility] 6-19 da 00:00: Medical 00 Group Chronic Chronic [...] Medical 00 Group Bilateral Bilateral Disease Active [facility] lower [facility] 3-23 [facility] - abdominal abdominal 00:00: Medi payam pain pain 00 Center Crohn's Crohn's Disease Active [address] disease disease 3-08 [facility] 00[facility] 00 Center SBO (small SBO (small Disease Active [address] bowel bowel 3-08 [facility] - obstructio obstructio 00:00: Me sid n) n) 00 Center Anxiety Anxiety Problem Active [place] disorder Disorder 6-25 da 00:[facility]: [facility] Abdominal Abdominal Disease Active Jeremiah ston pain pain 4-21 Methodi 00:00: st 00 Small Small Disease Active [facility] bowel bowel 4-16 Methodi obstructio obstructio 00:00: st n n 00 Colitis Colitis Disease Active [facility] presumed presumed 3-21 Method i infectious infectious 00:00: st 00 Clostridiu Problem Active 2020-08-10 M georgesria m - 06:24:10 l difficile 00:00: Delong (organism) Clostridiu 00 m difficile (organism) Active 10/10/2016 Problem 08/10/2020 Stool 10/10/2016 Problem added by Discern Expert. [facility] [place] ABDOMINAL Diagnosis Active 2016-10-18 Memoria PAIN 10-09 07:22:00 l 00:00: Markus ABDOMINAL 00 PAIN Active 10/09/2016 [facility] [place] INSECT Diagnosis Active 2015-052016-02-10 Mem oria BITE 0-08 16:26:00 l INSECT 08:00: Markus BITE 00 Active 02/06/2016 [facility] VOMITING Diagnosis Active 2014-08-13 M emoria 15 08:22:00 l VOMITING 00:00: Sony n 00 Active 08/13/2014 [facility] DIARRHEA Diagnosis Active 2014-01-14 M emoria 9-16 08:28:00 l DIARRHEA 05:00: Sony n 00 Active 01/14/2014 [facility] HEAT Diagnosis Active 2013-12-10 Mem oria EXPOSURE 25 08:48:00 l HEAT 00:00: Delong EXPOSURE 00 Active 11/22/2013 [facility] Mixed Problem Active 2020-08-10 Memor ia anxiety 4-07 06:24:10 l and Mixed 00:00: Markus depressive anxiety 00 disorder and (disorder) depressive disorder (disorder) Active 08/05/2013 Problem 08/10/2020 [facility] 09/27/14. [facility], [facility] ANXIETY Condition Active 2013-11-27 Il moria DEPRESSION 4-07 06:16:00 l ANXIETY 00:00: Delong DEPRESSION 00 Active 08/05/2013 [facility] Long-term Problem Active 2012-052020-08-10 Il moria drug 0-04 06:24:10 l therapy 00:00: Delong (procedure Long-term 00 ) drug therapy (procedure ) Active 02/01/2013 Problem 08/10/2020 Data migrated from [facility] on 09/27/14. [facility], [facility] HYPOTHYROI Condition Active 2012-052013-11-27 Memoria DISM 0-04 06:16:00 l 00:00: Delong HYPOTHYROI 00 DISM Active 02/01/2013 [facility] CROHN'S Condition Active 2012-052013-11-27 Me moria DISEASE 0-04 06:16:00 l CROHN'S 00:00: Delong DISEASE 00 Active 02/01/2013 [facility] ENDOMETRIO Condition Active 2012-052013-11-27 Memoria SIS 0-04 06:16:00 l 00:00: Delong ENDOMETRIO 00 SIS Active 02/01/2013 [facility] HERPES Condition Active 2012-052013-11-27 Mem oria SIMPLEX 0-04 06:16:00 l INFECTION HERPES 00:00: Prachi nn SIMPLEX 00 INFECTION Active 02/01/2013 [facility] LONG-TERM Condition Active 2012-052013-11-27 Memoria (CURRENT) 0-04 06:16:00 l USE OF 00:00: Markus OTHER LONG-TERM 00 MEDICATION (CURRENT) S USE OF OTHER MEDICATION S Active 02/01/2013 [facility] Panic Panic Problem Active [place] disorder Disorder da without without [facility] Generalize Generalize Problem Active M atagor d anxiety d Anxiety da disorder Disorder [facility] Abdominal Problem Resolve 2016-02-13 M emoria structure d 03:41:05 l (body Markus structure) Abdominal structure (body structure) Resolved Problem 02/13/2016 [facility], [facility] [place] Hypothyroi Problem Resolve 2020-08-10 Memoria dism d 06:24:10 l (disorder) Sony n Hypothyroi dism (disorder) Resolved Problem 08/10/2020 [facility], [facility], [facility] Anxiety Problem Active 2020-08-10 Isreal adiel (finding) 06:24:10 l Anxiety Delong (finding) Active Problem 08/10/2020 [facility], [facility], [facility], [place] Colitis Problem Active 2020-08-10 Isreal adiel (disorder) 06:24:10 l Colitis Markus (disorder) Active Problem 08/10/2020 [facility], [facility], [facility], [facility] Endometrio Problem Active 2020-08-10 M emoria sis 06:24:10 l (disorder) Sony n Endometrio sis (disorder) Active Problem 08/10/2020 [facility], [facility], [facility], [facility] Osteoarthr Problem Active 2020-08-10 M emoria itis 06:24:10 l (disorder) Sony n Osteoarthr itis (disorder) Active Problem 08/10/2020 [facility] Pain Problem Active 2020-08-10 Memor ia (finding) 06:24:10 l Pain Delong (finding) Active Problem 08/10/2020 [facility], [facility], [facility] Smoker Problem Active 2020-08-10 Memor ia (finding) 06:24:10 l Smoker Delong (finding) Active Problem 08/10/2020 quit March 10, 2020 still uses ecigs occassiona lly [facility], [facility], [facility] FH LUNG Condition Active 2013-11-27 Me moria CANCER 06:16:00 l FH LUNG Markus CANCER Active Condition 11/27/2013 Medical Group History of Past Illness Condition Condition Condition Status Onset Resolution Last Treating Co mments Source Name Details Category Date Date Treatment Clinician Date Unspecifie Problem 2016-052017-02-21 2017-02-21 Memoria d 0-21 01:25:53 01:25:53 l abdominal 05:00: Markus pain Unspecifie 00 d abdominal pain 02/18/2017 02/21/2017 [facility] Discharge Problem 2015-2016-02-13 2016-02-13 Memoria Diagnosis: 0-12 03:41:05 03:41:05 l Erythema 05:00: Markus nodosum Discharge 00 Diagnosis: Erythema nodosum 02/10/2016 02/13/2016 [place] Discharge Problem 2014-2014-08-16 2014-08-16 Memoria Diagnosis: 08-13 08:06:50 08:06:50 l Diarrhea 05:00: Markus Discharge 00 Diagnosis: Diarrhea 5 08/16/2014 [facility] Discharge Problem 2014-08-16 2014-08-16 Memoria Diagnosis: 08-13 08:06:50 08:06:50 l Hypokalemi 05:00: Sony n a Discharge 00 Diagnosis: Hypokalemi a 08/13/2014 08/16/2014 [facility] Discharge Problem 2013-052014-03-11 2014-03-11 Memoria Diagnosis: 05-09 21:37:50 21:37:50 l Abdominal 06:00: Markus pain Discharge 00 Diagnosis: Abdominal pain 03/09/2014 03/11/2014 [facility] [place] Discharge Problem 2013-052014-03-11 2014-03-11 Memoria Diagnosis: 05-09 21:37:50 21:37:50 l UTI 06:00: Markus (urinary Discharge 00 tract Diagnosis: infection) UTI (urinary tract infection) 03/09/2014 03/11/2014 [facility] Discharge Problem 2013-052014-03-11 2014-03-11 Memoria Diagnosis: 05-09 21:37:50 21:37:50 l Vomiting 06:00: Delong Discharge 00 Diagnosis: Vomiting 4 03/11/2014 [facility] Discharge Problem 2014-01-17 2014-01-17 Memoria Diagnosis: 01-14 04:54:49 04:54:49 l UTI (lower 05:00: Sony n urinary Discharge 00 tract Diagnosis: infection) UTI (lower urinary tract infection) 01/14/2014 01/17/2014 [facility] Allergies, Adverse Reactions, Alerts Allergy Allergy Status Severity Reaction(s) Onset Inactive Treating Comm ents Source Name Type Date Date Clinician Morphine Drug Active Other (See Patient [facility] Allergy Comments) 08-17 said does Mirtha es - 00:00: not work Medical 00 for her. Center Prometha Drug Active Other (See Makes [facility] zine Allergy Comments) 3- mouth/jaw Mirtha es - 00:00: twitch/je Medical 00 rk Center Remeron Allergy Active Other [place] to 7-30 da substanc 00:00: [facility] Ciproflo Propensi Active Swelling [place] xacin ty to 320 Methodi adverse 00:00: st reaction 00 s to drug Prometha Propensi Active Other (See [place] zine ty to Comments) 20 twitch Methodi adverse 00:00: st reaction 00 s to drug ciproflo ciproflo Active 2012-05 Memori a xacin<estevez xacin<estevez 0-04 l p>1</sup p>1</sup 05:00: Sony n > > 00 prometha prometha Active 2012-05 Memori a zine<sup zine<sup 0-04 l >3</sup> >3</sup> 05:00: Sony n 00 CIPRO CIPRO Active 2012-05 Memoria 0-04 l 00:00: [place]ong PHENERGA PHENERGA Active 2012-05 Memori a N N 0-04 l 00:00: Markus Prometha Propensi Active Anaphylaxis, Muscle [facility] zine Hcl ty to Other (See 10-24 [facility] - adverse Comments) 00:00: Medica l reaction 00 Center s Ciproflo Drug Active Swelling, Makes [facility] t xacin Allergy Anaphylaxis, 10-24 tongue Mirtha es - Hives 00:00: [address] Cipro Allergy Active Severe Other [place] to da substanc Medical e Group Phenerga Allergy Active Moderate Facial [place] n to swelling da substanc Medical e Group Trazodon Allergy Active Hives [place] e to da substanc [facility] Family History Family Member Diagnosis Comments Start Date Stop Date Source Maternal grandfather Cancer [facility] Maternal grandmother Dementia [facility] Maternal grandmother Endometriosis [facility] Maternal uncle Suicidality [facility] Natural mother Endometriosis [facility] Natural father Cancer [facility] Social History Social Habit Start Date Stop Date Quantity Comments Source History SDOH [facility] - Alcohol Std Drinks Medica l Center History SDOH [facility] Alcohol Binge Medical [address] Sex Assigned At [facility] Tobacco Comment 2020-01-29 2020-01-29 On chantix now. [place] [facility] 00:00:00 00:00:00 I have to stop. Cigarettes smoked 2020-01-09 2020-01-09 JASPREET [facility] - current (pack per 00:00:00 00:00:00 [facility] Center day) - Reported Cigarette 2020-01-09 2020-01-[address] [facility] - pack-years 00:00:00 00:00:00 [facility] Tobacco use and 2020-01-09 2020-01-[address] [facility] Fuentes kes - exposure 00:00:00 00:00:00 [facility] Alcohol intake 2020-01-09 2020-01-09 Current [facility] Mirtha es - 00:00:00 00:00:00 non-drinker of Medical nter alcohol (finding) Alcohol Comment 2018-07-21 2018-07-[address] [facility] St Gina soria - 00:00:00 00:00:00 [facility] History SDOH 2018-07-06 2018-07-[address] [facility] - Alcohol Frequency 00:00:00 00:00:00 [facility] Social History 2014-01-14 2014-01-14 [facility] 03:02:48 03:02:48 Smoking Status Start Date Stop Date Source Heavy Tobacco Smoker [facility] Former Smoker [facility] Current every day smoker 2020-01-09 00:00:00 [facility] Medications Ordered Filled Start Stop Current Ordering Indication Dosage Frequency Signature Comments Components Source Medication Medication Date Date Medication? Clinician (SIG) Name Name cefadroxil Yes 500 mg = 1 M emoria 500 mg oral 4-06 cap, PO, l capsule 14:00: BID, Delong 00 start medication on 08/04/20 [id number] [place] [address] [place] [address] , X 7 day, # 14 cap, 0 Refill(s), called to pharmacy meloxicam Yes 15 mg = 1 Mem oria 15 mg oral 4-06 tab, PO, l tablet 14:00: Daily, Sony n 00 start medication on 08/04/20 eRx sent to pharmacy [facility] #[id number] [address] [place] [address] , # 30 tab, 0 Refill(s), called to pharmacy Aspirin 81 Yes 81 mg = 1 Me moria MG Enteric 4-06 tab, PO, l Coated 02:00: BID, Markus Tablet 00 start medication on 08/03/20 eRx sent to pharmacy [facility] #[id number] [address] [place] [address] , # 60 tab, 0 Refill(s), called to pharmacy Ondansetron Yes 4 mg = 1 Me moria 4 MG 4-05 tab, PO, l Disintegrat 22:00: Q8H, PRN He rmann ing Tablet 00 Nausea & Vomiting, allow tablet to dissolve on tongue start medication on 08/03/20 eRx sent to pharmacy [id number] [address] [place] [address] , # 12 tab, 0 Refill(s), ... ePHEDrine No Route: IV, Me moria (ANES) 08-03 Drug form: l 12:42: INJ, ONCE, Delong Stop date: 08/03/20 7:42:00 CDT ondansetron No Route: IV, Memoria (ANES) 08-03 Drug form: l 12:32: INJ, ONCE, Delong Stop date: 08/03/20 7:32:00 CDT dexamethaso No Route: IV, Memoria ne (ANES) 08-03 Drug form: l 12:32: INJ, ONCE, Markus 00 Stop date: 08/03/20 7:32:00 CDT midazolam No Route: IV, Me moria (ANES) 08-03 Drug form: l 12:27: SOLN, Delong 00 ONCE, Stop date: 08/03/20 7:27:00 CDT lidocaine No Route: IV, Me moria (ANES) 08-03 Drug form: l 12:27: INJ, ONCE, Stop date: 08/03/20 7:27:00 CDT fentaNYL 2020-0 No Route: IV, Mem oria (ANES) 08-03 Drug form: l 12:27: INJ, ONCE, Stop date: 08/03/20 7:27:00 CDT propofol 2020-0 No Route: IV, Mem oria (ANES) 08-03 Drug form: l 12:27: INJ, ONCE, Stop date: 08/03/20 7:27:00 CDT Sodium 2020-0 No 500 mL, Memoria Chloride 08-03 Infuse l 0.9% 12:10: Over: 20 Delong (Bolus) IV 00 minutes, Route: IV, ONCE, Dosing Weight 77.273 kg, Start date: 08/03/20 7:10:00 CDT, Stop date: 08/03/20 7:10:00 CDT Labetalol 2020-0 No 10 mg, Memori a 08-03 Route: l 12:10: IVP, Markus 00 Q5Min, Dosing Weight 77.273, kg, PRN Elevated BP, Start date: 08/03/20 7:10:00 CDT, Duration: 5 doses or times, Stop date: Limited # of times Metoprolol 2020-0 No 1 mg, Memori a 08-03 Route: l 12:10: IVP, Markus 00 Q5Min, Dosing Weight 77.273, kg, PRN Other -See Comment, Start date: 08/03/20 7:10:00 CDT, Duration: 5 doses or times, Stop date: Limited # of times Ketorolac 2020-0 No 30 mg, Memori a 08-03 Route: l 12:10: IVP, ONCE, Dosing Weight 77.273, kg, Start date: 08/03/20 7:10:00 CDT, Stop date: 08/03/20 7:10:00 CDT Hydromorpho 1-0 No 0.5 mg, Mem oria ne 08-03 Route: l 12:10: IVP, Markus 00 Q5Min, Dosing Weight 77.273, kg, PRN Pain Score 7-10, Start date: 08/03/20 7:10:00 CDT, Duration: 4 doses or times, Stop date: Limited # of times Flumazenil No 0.2 mg, Isreal adiel - Route: l 12:10: IVP, PRN, Dosing Weight 77.273, kg, PRN Benzodiaze pine Reversal, Initial dose, Start date: 08/03/20 7:10:00 CDT, Duration: 30 day, Stop date: 09/02/20 7:09:00 CDT Naloxone No 0.4 mg, Memori a 08-03 Route: l 12:10: IVP, Q2MIN, Dosing Weight 77.273, kg, PRN Narcotic Reversal, Start date: 08/03/20 7:10:00 CDT, Duration: 8 doses or times, Stop date: Limited # of times Ondansetron No 4 mg, Memor ia 08-03 Route: l 12:10: IVP, ONCE, Dosing Weight 77.273, kg, PRN Nausea & Vomiting, Start date: 08/03/20 7:10:00 CDT ceFAZolin No Route: IV, Me moria (ANES) 1000 08-03 Drug form: l mg 11:55: INJ, Start date: 08/03/20 6:55:00 CDT, Stop date: 08/03/20 7:55:00 CDT Lactated No Route: IV, Mem oria Ringers - Total l Injection 11:43: Volume: Prachi nn IV (ANES) 00 1,000, 1000 mL Start date: 08/03/20 6:43:00 CDT, Stop date: 08/03/20 7:43:00 CDT ceFAZolin + No Notes: Isreal adiel sterile - (Same As: l water 20 mL 04:00: Ancef, Herm Kefzol) MEDICATION WASTE Product Size: 1000 mg Product Wasted: ___ mg Famotidine No Notes: Memor ia 4- (Same as: l 04:00: Pepcid) Zofran ODT No Notes: Memor ia 4-04 (Same as: l 04:00: Zofran Markus 00 ODT) Acetaminoph No Notes: Max Memoria en 08-02 acetaminop l 04:00: hen 4000 Markus 00 mg/day (4 gm/day). (Same as: Tylenol Extra Strength) cefadroxil Yes 500 mg = 1 M emoria 500 mg oral 1-12 cap, PO, l capsule 15:00: BID, Markus 00 start medication on 05/12/20 eRx sent to pharmacy [id number] [address] [place] [address] , X 7 day, # 14 cap, 0 Refill(s), called to pharmacy meloxicam Yes 15 mg = 1 Mem oria 15 mg oral 1-12 tab, PO, l tablet 15:00: Daily, Sony n 00 start medication on 05/12/20 eRx sent to pharmacy [id number] [address] [place] [address] , # 30 tab, 0 Refill(s), called to pharmacy meloxicam No Notes: Memori a 1-12 (Same as: l 15:00: Mobic) Delong 00 Aspirin 81 No Notes: Do Me moria MG Enteric 1-12 not crush l Coated 14:00: or chew. Markus Tablet 00 (Same As: Ecotrin) Cefazolin No Notes: Memori a 1-12 (Same As: l 09:00: Ancef, Delong 00 Kefzol) MEDICATION WASTE Product Size: 1000 mg Product Wasted: ___ mg Docusate No Notes: Memoria Sodium 100 1-12 (Same as: l MG Oral 03:06: Colace) Markus Capsule 00 (Do Not [Colace] Crush) Aspirin 81 Yes 81 mg = 1 Me moria MG Enteric 1-12 tab, PO, l Coated 03:00: BID, Delong Tablet 00 start medication on 05/11/20 eRx sent to pharmacy [facility] #[id number] [address] [place] [address] , # 60 tab, 0 Refill(s), called to pharmacy gabapentin No Notes: Memor ia 300 MG Oral 12 (Same as: l Capsule 03:00: Neurontin) Herm chelsey 00 Saline No Notes: Memoria Flush 0.9% 05-12 (Same as: l 03:00: BD Markus 00 Posiflush) Ondansetron Yes 4 mg = 1 Me moria 4 MG 12 tab, PO, l Disintegrat 00:29: Q8H, PRN He rmann ing Tablet 00 Nausea & Vomiting, allow tablet to dissolve on tongue start medication on 05/11/20 eRx sent to pharmacy [facility] #[id number] [address] [place] [address] , # 12 tab, 0 Refill(s). .. Klonopin No Notes: Memoria - (Same As: l 23:10: KlonoPIN) Markus [facility] 3:Reproduc tive risk Hazardous Drug -- Refer to safe handling procedure PPE Matrix ketOROLAC Yes 4 days Memor ia 30 mg/mL 05-11 l injectable 22:49: MEDICATION H ermann solution 00 WASTE Product Size: 30 mg Product Wasted: ___ mg Acetaminoph No Notes: Do M emoria en 325 MG / 05-11 not exceed l Hydrocodone 21:03: 4gm/day of Markus Bitartrate 00 acetaminop 10 MG Oral hen. Tablet (Same as: [place] 325/10) Zofran ODT No Notes: Memor ia -11 (Same as: l 21:03: Zofran Markus 00 ODT) Benadryl No Notes: Memoria -11 (Same as: l 21:03: Benadryl) Markus 00 Melatonin 3 No Notes: Isreal adiel MG Extended 05-11 (Same as: l Release 21:03: Melatonin) Herm chelsey Tablet 00 Tums No Notes: Memoria 05-11 (Same As: l 21:03: Tums) Calcium Carbonate 500 mg = 200 mg elemental calcium Dose = mg calcium carbonate ( mg elemental calcium) Saline No Notes: Memoria Flush 0.9% 05-11 (Same as: l 21:03: BD Posiflush) Lactated No 1,000 mL, Isreal adiel Ringers IV 05-11 Rate: 125 l 1,000 mL 21:03: ml/hr, Infuse over: 8 hr, Route: IV, Dosing Weight 65.909 kg, Total Volume: 1,000, Start date: 05/11/20 15:03:00 PROGRESS WORKER, Duration: 30 day, Stop date: 06/10/20 15:02:00 PROGRESS WORKER, 1.72, m2, 0 ceFAZolin No Route: IV, Me moria (ANES) 05-11 Drug form: l 19:57: INJ, ONCE, Stop date: 05/11/20 13:57:00 PROGRESS WORKER lidocaine No Route: IV, Me moria (ANES) 05-11 Drug form: l 19:52: INJ, ONCE, Stop date: 05/11/20 13:52:00 PROGRESS WORKER fentaNYL No Route: IV, Mem oria (ANES) 05-11 Drug form: l 19:52: INJ, ONCE, Stop date: 05/11/20 13:52:00 PROGRESS WORKER propofol No Route: IV, Mem oria (ANES) 05-11 Drug form: l 19:52: INJ, ONCE, Stop date: 05/11/20 13:52:00 PROGRESS WORKER midazolam No Route: IV, Me moria (ANES) 05-11 Drug form: l 19:47: SOLN, 00 ONCE, Stop date: 05/11/20 13:47:00 PROGRESS WORKER famotidine No Route: IV, M emoria (ANES) 05-11 Drug form: l 19:47: INJ, ONCE, Stop date: 05/11/20 13:47:00 PROGRESS WORKER Oxycodone 2020-0 No 5 mg, Memoria Hydrochlori 05-11 Route: PO, l de 5 MG 19:36: Drug form: Herm chelsey Oral Tablet 00 TAB, Q4H, Dosing Weight 65.909, kg, PRN Pain Score 4-6, Start date: 05/11/20 13:36:00 PROGRESS WORKER, Duration: 30 day, Stop date: 06/10/20 13:35:00 PROGRESS WORKER Fentanyl 2020-0 No 25 Memoria 1-11 microgram, l 19:36: Route: Markus 00 IVP, Q5Min, Dosing Weight 65.909, kg, PRN Pain Score 4-6, Priority: Routine, Start date: 05/11/20 13:36:00 PROGRESS WORKER, Duration: 4 doses or times, Stop date: Limited # of times Flumazenil 0 No 0.2 mg, Isreal adiel 05-11 Route: l 19:36: IVP, PRN, Markus 00 Dosing Weight 65.909, kg, PRN Benzodiaze pine Reversal, Initial dose, Start date: 05/11/20 13:36:00 PROGRESS WORKER, Duration: 30 day, Stop date: 06/10/20 13:35:00 PROGRESS WORKER Naloxone 2020-0 No 0.4 mg, Memori a 05-11 Route: l 19:36: IVP, Delong 00 Q2MIN, Dosing Weight 65.909, kg, PRN Narcotic Reversal, Start date: 05/11/20 13:36:00 PROGRESS WORKER, Duration: 8 doses or times, Stop date: Limited # of times Meperidine 0 No 12.5 mg, Mem oria 05-11 Route: l 19:36: IVP, Markus 00 Q30Min, Dosing Weight 65.909, kg, PRN Other -See Comment, For shivering, Start date: 05/11/20 13:36:00 PROGRESS WORKER, Duration: 2 doses or times, Stop date: Limited # of times Ondansetron 0 No 4 mg, Memor ia 05-11 Route: l 19:36: IVP, ONCE, Delong 00 Dosing Weight 65.909, kg, PRN Nausea & Vomiting, Start date: 05/11/20 13:36:00 PROGRESS WORKER tranexamic 2021-0 No Route: IV, M emoria acid (ANES) 1- Drug form: l 100 mg 19:29: INJ, Start Prachi nn 00 date: 05/11/20 13:29:00 PROGRESS WORKER, Stop date: 05/11/20 14:29:00 PROGRESS WORKER propofol No Route: IV, Mem oria (ANES) 10 1- Drug form: l mg 19:17: INJ, Start Delong date: 05/11/20 13:17:00 PROGRESS WORKER, Stop date: 05/11/20 14:17:00 PROGRESS WORKER Lactated No Route: IV, Mem oria Ringers 05-11 Total l Injection 19:07: Volume: Prachi nn IV (ANES) 00 1,000, 1000 mL Start date: 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 l 06:00: Please Delong 00 check indication . Not for seizure. (Same As: CeleBREX) Cyklokapron No Notes: Isreal adiel + Sodium 05-11 (Same As: l Chloride 06:00: Cyklokapro Her hogan 0.9% IV 100 00 n) mL Lyrica No Notes: Memoria -11 (Same as: l 06:00: Lyrica) Delong 00 acetaminoph No Notes: Max Memoria en 05-11 acetaminop l 06:00: hen 4000 Markus 00 mg/day (4 gm/day). (Same as: Tylenol Extra Strength) dexamethaso No Notes: Isreal adiel ne 05-11 Concentrat l 06:00: ion: Delong 00 4mg/ml famotidine No Notes: Memor ia 11 (Same as: l 06:00: Pepcid) Delong 00 pantoprazol Yes 40 mg = 2 M emoria e 20 mg 05-07 tab, PO, l oral 16:46: Daily, # Delong enteric 00 60 tab, 0 coated Refill(s) tablet estradiol 2 Yes 2 mg = 1 Me moria mg oral 05-07 tab, PO, l tablet 16:26: Daily, # Delong 00 30 tab, 0 Refill(s) 1 ML Yes See Memoria Hydromorpho 05-07 Instructio l ne 16:26: ns, PRN Delong Hydrochlori 00 Pain, pain de 1 MG/ML pump, 0 Prefilled Refill(s) Syringe [Dilaudid] Clonazepam Yes buspar, Isreal adiel 1 MG Oral 05-07 PO, TID, # l Tablet 16:25: 90 tab, 0 Sony n [Klonopin] 00 Refill(s) Buspar Yes 15 mg, PO, Memor ia 05-07 QID, 0 l 16:25: Refill(s) Delong 00 ferrous Yes 250 mg = 1 Isreal adiel sulfate 250 05-07 cap, PO, l mg oral 16:24: Daily, # Sony n capsule, 00 30 cap, 0 extended Refill(s) release Chantix 1 Yes 1 mg = 1 Isreal adiel mg oral 05-07 tab, PO, l tablet 16:24: Daily, # Markus 00 30 tab, 0 Refill(s) Furosemide Yes 20 mg = 1 Me moria 20 MG Oral 07 tab, PO, l Tablet 16:24: Daily, # Delong 00 30 tab, 0 Refill(s) magnesium Yes 140 mg = 1 Me moria oxide 140 05-07 cap, PO, l mg oral 16:23: Daily, # Sony n capsule 00 30 cap, 0 Refill(s) zoledronic Yes Reclast 5 [place] acid 9-30 mg/100 mL [facility] (RECLAST) 5 15:24: intravenou st mg/100 mL 04 s piggyback piggyback Inject by intravenou s route. multivitami 2020-0 Yes 1{tbl} Take 1 [place] n,tx-iron-m 9-30 tablet by Met koo inercate 15:24: mouth. st tablet 04 ALPRAZolam 2020-0 Yes alprazolam [place] (XANAX) 1 9-30 1 mg [facility] MG tablet 15:24: tablet T1T st 04 PO QD pantoprazol 2020-0 Yes 40mg QD Take 40 mg Bus[facility] e 9-30 by mouth [facility] (PROTONIX) 15:19: daily. st 40 MG EC 08 tablet clonAZEPAM 2019-0 Yes 1mg Take 1 mg [place] (KlonoPIN) 9-30 by mouth. Meth deepti 1 MG tablet 15:19: st 08 escitalopra 2019-0 Yes post 10mg QD Take [address] [facility] m oxalate 9-10 traumatic by mouth L ukes - (LEXAPRO) 15:01: stress daily. Medi payam 10 MG 57 disorder Center tablet mesalamine 2019-0 Yes Crohn's 2400mg Take 2,[address] [facility] (LIALDA) 9-10 disease mg by [facility] - 1.2 gram EC 15:01: mouth Medic al tablet 57 daily with Center breakfast. clonazePAM 2020-0 Yes 1mg Q.[id number] Take [address] [facility] (KLONOPIN) 9-10 [id number] by mouth 3 [facility] - 1 MG tablet 15:01: 3D (three) Med ical 57 times Center daily . multivitami 2020-0 Yes 1{tbl} QD Take [address] n,tx-iron-m 9-10 tablet by Mirtha es - inerals Tab 15:01: mouth Medic al 57 daily. Center terconazole 2020-0 Yes 1{appli QD Place [address] [facility] (TERAZOL 7) 9-10 cator} applicator [facility] - 0.4 % 15:01: vaginally Medical vaginal 57 nightly. Center cream busPIRone 2020-0 Yes 15mg Q.25D Take [address] (BUSPAR) 15 9-10 by mouth 4 Gina kes - MG tablet 15:01: (four) Medica l 57 times Center daily. gabapentin 2020-0 Yes 300mg Q.[id number] Take [address] [facility] [address] (NEURONTIN) 9-10 [id number] mg by L ukes - 300 MG 15:01: 3D mouth 3 Medical capsule 57 (three) Center times daily. estrogens, 2020-0 Yes 1mg QD Take [address] conjugated, 9-10 by mouth Luke s - (PREMARIN) 15:01: daily. Medic al 1.25 MG 57 Center tablet hydroCHLORO 2020-0 Yes 25mg QD Take [address] [facility] thiazide 9-10 by mouth [facility] - (MICROZIDE) 15:01: daily. Medi payam 12.5 mg 57 Center capsule pantoprazol 2020-0 Yes 40mg Q.5D Take [address] [facility] e 9-10 by mouth 2 [facility] - (PROTONIX) 15:01: (two) Medica l 40 MG 57 times Center tablet daily. TERBINAFINE 2020-0 Yes 250mg QD Take [address] HCL ORAL 9-10 mg by [facility] - 15:01: mouth Medical 57 daily. Center sucralfate 2020-0 Yes 1g Q.25D Take [address] (CARAFATE) 9-10 by mouth 4 Mirtha es - 1 gram 15:01: (four) Medical tablet 57 times Center daily. ferrous 2020-0 Yes 65mg Take [address] [facility] sulfate 325 9-10 by mouth Luke s - (65 FE) MG 15:01: daily with M edical tablet 57 breakfast. Center nitrofurant 2020-0 Yes 100mg Q.5D Take [address] oin, 9-10 mg by [facility] - macrocrysta 15:01: mouth 2 Med ical l-monohydra 57 (two) Center te, times (MACROBID) daily. 100 MG capsule fluconazole 2020-0 Yes 100mg QD Take [address] (DIFLUCAN) 9-10 mg by [facility] - 100 MG 15:01: mouth Medical tablet 57 daily. Center calcium 2020-0 Yes 600mg QD Take 600 [facility] carbonate 9-10 mg by [facility] - (OS-PAYAM) 15:01: mouth Medical 600 mg 57 daily. Center calcium (1,500 mg) Tab cholecalcif 2020-0 Yes 5000U QD Take 5,[address] estephania, 9-10 Units by [facility] - vitamin D3, 15:01: mouth Medic al 125 mcg 57 daily. Center (5,000 unit) Tab zoledronic 2020-0 Yes Inject [facility] acid/mannit 9-10 intravenou Gina kes - ol-water 15:01: sly. Medical (RECLAST 57 Center IV) sodium [address] [facility] chloride 9-10 intravenou [facility] - 0.9% (NS) 15:01: sly Medical SolP with 57 continuous Cent er HYDROmorpho . ne 10 mg/mL Soln 20 mcg/mL baclofen 0 Yes 10mg Q.[id number] Take [address] [facility] [address] (LIORESAL) 9-10 [id number] by mouth 3 [facility] - 10 MG 15:01: 3D (three) Medical tablet 57 times Center daily. sertraline 0 Yes 25mg QD Take [address] (ZOLOFT) 25 9-10 by mouth Luke s - MG tablet 15:01: daily. Medica l 57 Center valACYclovi 2019-0 Yes valacyclov [facility] (VALTREX) 8-10 ir 1 gram Met hodi 1000 MG 00:00: tablet st tablet 00 busPIRone 2018-05 Yes buspirone [facility] (BUSPAR) 15 1-30 15 mg [facility] MG tablet 00:00: tablet one st 00 po four times a day methocarbam 2018-05 Yes 500mg Q6H Take 500 [place] ol 0-15 mg by [facility] (ROBAXIN) 11:57: mouth st 500 MG 30 every 6 tablet (six) hours. acetaminoph Yes 1{tbl} Q.5D Take 1 [place] en-codeine 8-23 tablet by Meth deepti (TYLENOL 00:00: mouth 2 st WITH 00 (two) CODEINE #4) times a 300-60 mg day. per tablet gabapentin Yes TAKE [place] (NEURONTIN) 8-23 ONE(1) Method i 300 mg 00:00: CAPSULE BY st capsule 00 MOUTH TWICE DAILY cholecalcif Yes 2000U Take 2,000 Busch estephania, 8-20 Units by [facility] vitamin D3, 00:00: mouth. st (VITAMIN 00 D3) 2,000 unit capsule capsule escitalopra Yes TK 1 T PO [place] m (LEXAPRO) 8-08 QAM [facility] 10 MG 00:00: st tablet 00 hydrocortis Yes U REC BID [place] one 7-19 FOR 10 [facility] (ANUSOL-HC) 00:00: DAYS st 2.5 % 00 rectal cream valACYclovi Yes [place] (VALTREX) 7-19 [facility] 1000 MG 00:00: st tablet 00 terconazole Yes I 1 [place] (TERAZOL 7) 6-25 APPLICATOR Me thodi 0.4 % 00:00: FUL st vaginal 00 VAGINALLY cream QD FOR 7 DAYS pantoprazol Yes TAKE 1 [place] 6-18 TABLET BY [facility] (PROTONIX) 00:00: MOUTH st 40 MG EC 00 TWICE tablet DAILY ustekinumab Yes 90mg Inject 90 [place] (STELARA) 5-07 mg under [facility] i 90 mg/mL 00:00: the skin. st injection 00 STELARA 90 2017-05 Yes INJECT [facility] mg/mL Syrg 2-12 90MG [facility] - 00:00: SUBCUTANEO Medical 00 USLY 8 Center WEEKS AFTER INNDUCTION DOSE THEN EVERY 8 WEEKS THEREAFTER ustekinumab 2017-05 Yes INJECT [place] (STELARA) 2-12 90MG [facility] 90 mg/mL 00:00: SUBCUTANEO st injection 00 USLY EVERY 28 DAYS Ondansetron 2016-05 No 4 mg, Memor ia 0-21 Route: l 23:36: IVP, Drug Markus form: INJ, ONCE, Dosing Weight 52.955, kg, Priority: STAT, Start date: 02/18/17 18:36:00 CDT, Stop date: 02/18/17 18:36:00 CDT Hydromorpho 2016-05 No 1 mg, Memor ia ne 0-21 Route: l 23:01: IVP, Drug Delong form: INJ, ONCE, Dosing Weight 52.955, kg, Priority: STAT, Start date: 02/18/17 18:01:00 CDT, Stop date: 02/18/17 18:01:00 CDT Sodium 2016-05 No 1,000 mL, Memori a Chloride 0-21 1000 l 0.9% 20:52: ml/hr, Markus (Bolus) IV 00 Infuse Over: 1 hr, Route: IV, 1,000, Drug form: INJ, ONCE, Priority: STAT, Dosing Weight 52.955 kg, Start date: 02/18/17 15:52:00 CDT, Duration: 1 doses or times, Stop date: 02/18/17 15:52:00 CDT Hydromorpho 2016-05 No Notes: Isreal adiel ne 0-21 Same as l 20:51: Dilaudid Saline 2016-05 No Notes: Memoria Flush 0.9% 0-21 (Same as: l 20:51: BD Posiflush) Sodium 2016-05 No 1,000 mL, Memori a Chloride 0-21 2,000 l 0.9% 20:51: ml/hr, Delong (Bolus) IV 00 Infuse Over: 30 minutes, Route: IV, 1,000, Drug form: INJ, ONCE, Priority: STAT, Dosing Weight 52.955 kg, Start date: 02/18/17 15:51:00 CDT, Duration: 1 doses or times, Stop date: 02/18/17 15:51:00 CDT Ondansetron 2016-05 No Notes: Isreal adiel 0-21 (Same as: l 20:51: Zofran) MEDICATION WASTE Product Size: 4 mg Product Wasted: ___ mg predniSONE Yes 40 mg = 2 Me moria 20 mg oral 6-14 tab, PO, l tablet 15:02: Daily, X Markus 30 day, # 60 tab, 0 Refill(s) Fluconazole Yes 150 mg = 1 Memoria 150 MG Oral 6-14 tab, PO, l Tablet 14:34: ONCE, # 1 Sony n [Diflucan] 00 tab, 0 Refill(s) Ondansetron Yes 8 mg = 1 Me moria 8 MG 6-14 tab, PO, l Disintegrat 14:34: TID, PRN He rmann ing Tablet 00 Nausea and [Zofran] Vomiting, Dissolve tab under tongue, X 4 day, # 10 tab, 0 Refill(s) Metronidazo Yes 500 mg = 1 Memoria le 500 MG 6-14 tab, PO, l Oral Tablet 14:34: ABXQ8H, X H ermann 00 14 day, # 42 tab, 0 Refill(s) mesalamine Yes 1,200 mg = M emoria 400 MG 6-14 3 cap, PO, l Enteric 14:34: Q12H, # Delong Coated 00 180 cap, 0 Capsule Refill(s) Alprazolam Yes 2 mg = 1 Mem oria 2 MG Oral 6-14 tab, PO, l Tablet 14:34: QID, PRN Delong [Xanax] 00 Anxiety, X 5 day, # 20 tab, 0 Refill(s) Flagyl No Notes: Memoria 6-13 (Same as: l 16:00: Flagyl) Markus 00 Take with food/ avoid alcohol mesalamine No Notes: Memor ia 6-13 (Same as: l 14:31: Delzicol) mesalamine No 2.4 gm, 2 Me moria 1200 MG 6-13 tab, l Enteric 14:00: Route: PO, Herm chelsey Coated 00 Drug form: Tablet ECTAB, Daily, Dosing Weight 51.392, kg, Start date: 10/11/16 9:00:00 CDT, Duration: 30 day, Stop date: 11/09/16 9:00:00 CDT remove No Notes: Memoria patch 6-13 Remove old l 10:00: patch Delong 00 before applicatio n of new patch. WASTE: F/P - P Waste Black; E - P Waste Black Alprazolam No Notes: Memor ia 0.25 MG 6-12 With food l Oral Tablet 14:51: or milk Her hogan [Xanax] (Same as: Xanax) pantoprazol No Notes: For Memoria e 6-12 IV push l 14:30: reconstitu Markus 00 te with 10 ml 0.9% sodium chloride and push over 2 minutes. (Same as: Protonix) methylPREDN No Notes: Isreal adiel ISolone 6-12 (Same l SODium 14:00: as:Solu-ME Prachi nn SUCCinate 00 DROL, A-Methapre d) Nicotine No Notes: Memoria 6-12 (Same as: l 10:00: Habitrol) Markus 00 "Remove old patch before applicatio n of new patch" WASTE: F/P - P Waste Black; E - P Waste Black Flagyl No Notes: Memoria 6-12 (Same as: l 08:00: Flagyl) Delong 00 Avoid alcohol. pneumococca No 0.5 mL, Mem oria l capsular 6-12 Route: IM, l polysacchar 07:51: ONCALL, Her hogan sam type 1 58 Start vaccine / date: pneumococca 10/10/16 l capsular 2:51:58 polysacchar CDT, Stop sam type date: 10A vaccine 11/09/16 / 2:46:58 pneumococca CDT l capsular polysacchar sam type 11A vaccine / pneumococca l capsular polysacchar sam type 12F vaccine / pneumococca l capsular polysacchar Alprazolam No Notes: Memor ia 0.25 MG 6-12 With food l Oral Tablet 07:07: or milk Her hogan [Xanax] 00 (Same as: Xanax) Saline No Notes: Memoria Flush 0.9% 6-12 (Same as: l 07:06: BD Markus 00 Posiflush) Acetaminoph No Notes: Isreal adiel en 325 MG / 6-12 (Same as: l Hydrocodone 07:06: [place] Prachi nn Bitartrate 00 325/5) Do 5 MG Oral not exceed Tablet 4gm/day of acetaminop hen. Morphine No Notes: Memoria 6-12 (Same l 07:06: as:MORPhin Delong 00 e Sulfate) Ondansetron No Notes: Isreal adiel 6-12 (Same as: l 07:06: Zofran) Delong 00 MEDICATION WASTE Product Size: 4 mg Product Wasted: ___ mg Sodium No 1,000 mL, Memori a Chloride 6-12 Rate: 125 l 0.154 07:06: ml/hr, Delong MEQ/ML 00 Infuse Injectable over: 8 Solution hr, Route: IV, Dosing Weight 52.727 kg, Total Volume: 1,000, Start date: 10/10/16 2:06:00 CDT, Duration: 30 day, Stop date: 11/09/16 2:05:00 CDT Hydromorpho No 1 mg, 1 Mem oria ne 6-12 mL, Route: l 05:36: IVP, Drug form: INJ, ONCE, Dosing Weight 52.727, kg, Priority: STAT, Start date: 10/10/16 0:36:00 CDT, Stop date: 10/10/16 0:36:00 CDT Ondansetron 2017- No Notes: Isreal adiel 6-12 (Same as: l 03:54: Zofran) MEDICATION WASTE Product Size: 4 mg Product Wasted: ___ mg Hydromorpho 2017- No 2 mg, 2 Mem oria ne 6-12 mL, Route: l 03:54: IVP, Drug form: INJ, ONCE, Dosing Weight 52.727, kg, Priority: STAT, Start date: 10/09/16 22:54:00 CDT, Stop date: 10/09/16 22:54:00 CDT Sodium No 1,000 mL, Memori a Chloride 6-12 1000 l 0.154 03:54: ml/hr, Delong MEQ/ML 00 Infuse Injectable Over: 1 Solution hr, Route: IV, 1,000, Drug form: INJ, ONCE, Priority: STAT, Dosing Weight 52.727 kg, Start date: 10/09/16 22:54:00 CDT, Duration: 1 doses or times, Stop date: 10/09/16 22:54:00 CDT predniSONE 2015-05 Yes 60 mg = 3 Me moria 20 mg oral 0-12 tab, PO, l tablet 20:50: Daily, Take 3 tablets for 60 mg dose, X 5 day, # 15 tab, 0 Refill(s) Dilaudid 2015-05 No 1 mg, Memoria 0-12 Route: l 20:49: IVP, ONCE, Dosing Weight 59.091, kg, Priority: STAT, Start date: 02/10/16 15:49:00 CDT, Stop date: 02/10/16 15:49:00 CDT Sodium 2015-05 No 1,000 mL, Memori a Chloride 0-12 1000 l 0.154 18:36: ml/hr, Markus MEQ/ML 00 Infuse Injectable Over: 1 Solution hr, Route: IV, 1,000, Drug form: INJ, ONCE, Priority: STAT, Dosing Weight 59.091 kg, Start date: 02/10/16 13:36:00 CDT, Duration: 1 doses or times, Stop date: 02/10/16 13:36:00 CDT Nitrofurant Yes 100 mg = 1 Memoria oin 100 MG 4-15 cap, PO, l Oral 16:05: BID, X 7 Markus Capsule 00 day, # 14 [Macrobid] cap, 0 Refill(s) Potassium Yes 20 mEq = 1 Me moria Chloride 20 4-15 tab, PO, l MEQ 15:54: BID, # 10 Delong Extended 00 tab, 0 Release Refill(s) Tablet Ondansetron Yes Special Mem oria 4 MG 4-15 Instructio l Disintegrat 15:47: ns: Sony n ing Tablet 00 Dissolve [Zofran] tab under tongue Metronidazo Yes 500 mg = 1 Memoria le 500 MG 4-15 tab, PO, l Oral Tablet 15:47: Q8H, X 7 He rmann [Flagyl] 00 day, # 21 tab, 0 Refill(s) Ketorolac No 4 days Memor ia 4-15 l 15:46: MEDICATION Delong 00 WASTE Product Size: 30 mg Product Wasted: ___ mg Sodium No 1,000 mL, Memori a Chloride 4-15 1,000 l 0.154 14:36: ml/hr, Delong MEQ/ML 00 Infuse Injectable Over: 1 Solution hr, Route: IV, 1,000, Drug form: INJ, ONCE, Priority: STAT, Dosing Weight 47.727 kg, Start date: 08/13/14 9:36:00, Duration: 1 doses or times, Stop date: 08/13/14 9:36:00 Potassium No 40 mEq, Memor ia Chloride 4-15 Route: PO, l 1.33 MEQ/ML 13:12: Drug form: Markus Oral 00 LIQ, ONCE, Solution Dosing Weight 47.727, kg, Priority: STAT, Start date: 08/13/14 8:12:00, Stop date: 08/13/14 8:12:00 Sodium No 1,000 mL, Memori a Chloride -15 1,000 l 0.154 12:04: ml/hr, Markus MEQ/ML 00 Infuse Injectable Over: 1 Solution hr, Route: IV, 1,000, Drug form: INJ, ONCE, Priority: STAT, Dosing Weight 47.727 kg, Start date: 08/13/14 7:04:00, Duration: 1 doses or times, Stop date: 08/13/14 7:04:00 Saline No Notes: Memoria Flush 0.9% 08-13 Same as: l 12:03: BD Delong 00 Posiflush Sterile tramadol 2013-05 Yes 50 mg = 1 Isreal adiel hydrochlori 09 tab, PO, l de 50 MG 18:14: Q4H, Pain, Her hogan Oral Tablet 00 # 30 tab, 0 Refill(s) Nitrofurant 2013-05 Yes 100 mg = 1 Memoria oin 100 MG 05-09 cap, PO, l Oral 16:48: BID, # 14 Markus Capsule 00 cap, 0 [Macrobid] Refill(s) Ondansetron 2013-05 Yes Special Mem oria 4 MG 05-09 Instructio l Disintegrat 16:17: ns: Sony n ing Tablet 00 Dissolve [Zofran] tab under tongue Potassium 2013-05 No Notes: Memori a Chloride 20 05-09 (Same as: l MEQ 16:13: K-Dur 20) Delong Extended 00 "Do Not Release Crush" Tablet With food and full glass of water Dilaudid 2013-05 No 0.5 mg, Memori a 05-09 0.5 mL, l 14:49: Route: Markus 00 IVP, Drug form: INJ, ONCE, Dosing Weight 50.909, kg, Priority: STAT, Start date: 03/09/14 8:49:00, Stop date: 03/09/14 8:49:00 potassium 2013-05 No Notes: Memori a chloride 20 05-09 (Same as: l mEq/100 mL 14:10: KCL) Delong intravenous 00 Infuse no solution faster than 10 mEq/hr if given peripheral ly. Ondansetron 2013-05 No 4 mg, Memor ia 05-09 Route: l 12:33: IVP, ONCE, Markus 00 Dosing Weight 50.909, kg, Priority: STAT, Start date: 03/09/14 6:33:00, Stop date: 03/09/14 6:33:00 Hydromorpho 2013-05 No 0.5 mg, Mem oria ne 05-09 Route: l 12:33: IVP, ONCE, Delong 00 Dosing Weight 50.909, kg, Priority: STAT, Start date: 03/09/14 6:33:00, Stop date: 03/09/14 6:33:00 Saline 2013-05 No Notes: Memoria Flush 0.9% 05-09 (Same as: l 12:33: BD Delong Posiflush) Sodium 2013-05 No 1,000 mL, Memori a Chloride 05-09 Infuse l 0.154 12:33: Over: 1 Delong MEQ/ML 00 hr, Route: Injectable IV, ONCE, Solution Priority: STAT, Dosing Weight 50.909 kg, Start date: 03/09/14 6:33:00, Duration: 1 doses or times, Stop date: 03/09/14 6:33:00 Nitrofurant Yes 100 mg = 1 Memoria oin 100 MG 01-14 cap, PO, l Oral 21:37: BID, # 14 Delong Capsule 00 cap, 0 [Macrobid] Refill(s) Acetaminoph No 1 tab, Isreal adiel en 325 MG / 01-14 Route: PO, l Hydrocodone 20:51: Drug Form: Markus Bitartrate 00 TAB, 5 MG Oral Dosing Tablet Weight [[place] 50.909, 5/325] kg, ONCE, STAT, Start date: 01/14/14 15:51:00, Stop date: 01/14/14 15:51:00 Potassium No Notes: Memori a Chloride 20 01-14 (Same as: l MEQ 16:33: K-Dur 20) Markus Extended 00 "Do Not Release Crush" Tablet With food and full glass of water Macrobid No Notes: Not Mem oria 01-14 Recommende l 16:20: d for Delong 00 patients with CrCl< 50 ml/min With food (Same as:Macroda ntin) Acetaminoph No 2 tab, Isreal adiel en 325 MG / 01-14 Route: PO, l Hydrocodone 13:20: Dosing Herm chelsey Bitartrate 00 Weight 5 MG Oral 50.909, Tablet kg, ONCE, [[place] Start 5325] date: 01/14/14 8:20:00, Stop date: 01/14/14 8:20:00 Acetaminoph Yes 1 tab, PO, Memoria en 325 MG / 01-14 Q4-6H, l Hydrocodone 05:59: Pain, # 12 Markus Bitartrate 00 tab, 0 5 MG Oral Refill(s) Tablet [[place] 5/325] Hydromorpho No Notes: Isreal adiel ne 01-14 (Same as: l 05:48: Dilaudid) Potassium No Notes: Memori a Chloride 20 01-14 (Same as: l MEQ 05:45: K-Dur 20) "Do Not Release Crush" Tablet With food and full glass of water Ondansetron No Notes: Isreal adiel 9-16 (Same as: l 03:12: Zofran) Sodium No 1,000 mL, Memori a Chloride -16 1000 l 0.154 03:12: ml/hr, Markus MEQ/ML 00 Infuse Injectable Over: 1 Solution hr, Route: IV, 1,000, Drug form: INJ, ONCE, Priority: STAT, Dosing Weight 54.545 kg, Start date: 01/13/14 22:12:00, Duration: 1 doses or times, Stop date: 01/13/14 22:12:00 Saline No Notes: Memoria Flush 0.9% 01-14 (Same as: l 03:12: BD Posiflush) Hydromorpho No Notes: Isreal adiel ne -16 (Same as: l 03:12: Dilaudid) Ondansetron Yes Notes: Isreal adiel 7-25 (Same as: l 16:08: Zofran) Metoclopram Yes Notes: Isreal adiel sam 7-25 (Same as: l 16:08: Reglan) Sodium Yes 1,000 mL, Memori a Chloride 7-25 1000 l 0.154 16:08: ml/hr, Markus MEQ/ML 00 Infuse Injectable Over: 1 Solution hr, Route: IV, 1,000, Drug form: INJ, ONCE, Priority: STAT, Dosing Weight 54.545 kg, Start date: 11/22/13 11:08:00, Duration: 1 doses or times, Stop date: 11/22/13 11:08:00 Saline No Notes: Memoria Flush 0.9% 7-25 (Same as: l 16:08: BD Posiflush) Dilaudid Yes 0 Memoria 7-25 Refill(s) l 15:55: Topamax Yes 0 Memoria 7-25 Refill(s) l 15:55: Valium Yes 0 Memoria 7-25 Refill(s) l 15:54: Thyroxine Yes 0 Memoria 7-25 Refill(s) l 15:54: DEXILANT 60 Yes 1 po once M emoria MG CPDR 4-07 daily l 00:00: LEVOTHYROXI 2012-05 Yes 1 PO Daily [facility] NE SODIUM 0-04 l 100 MCG 00:00: ALPRAZOLAM 2012-05 Yes 1 po 4 [facility] 2 MG TABS 0-04 times l 00:00: daily ADDERALL 30 2012-05 Yes 1 po q AM, [facility] MG TABS 0-04 1 po q l 00:00: noon, 1/2 po at 3:00pm VALIUM 10 2012-05 Yes 1 po q hs [facility] MG TABS 0-04 l 00:00: DEPAKOTE ER 2012-05 Yes 2 tabs po M [facility] 500 MG 0-04 q hs l [id number] 00:00: DILAUDID/CL 2012-05 Yes per pain Me [facility] ONIDINE/BUR 0-04 pump l - 4.0MG/ML, 00:00: Sony n 444.0 00 UG/ML, 5.0 UG/ML ACYCLOVIR 2012-05 Yes 1 3x daily [facility] TAB 400MG 0-04 for herpes l 00:00: flare. LEVOTHYROXI 2012-05 Yes 1 PO Daily [facility] NE SODIUM 0-04 l 100 MCG 00:00: ALPRAZOLAM 2012-05 Yes 1 po 4 [facility] 2 MG TABS 0-04 times l 00:00: daily ADDERALL 30 2012-05 Yes 1 po q AM, [facility] MG TABS 0-04 1 po q l 00:00: noon, / po at 3:00pm DEPAKOTE ER 2012-05 Yes 2 tabs po M [facility] 500 MG 0-04 q hs l [id number] 00:00: ACYCLOVIR 2012-05 Yes 1 3x daily [facility] TAB 400MG 0-04 for herpes l 00:00: flare. acetaminoph acetaminoph No acetaminop [place] 300 en 300 hen 300 da mg-codeine mg-codeine mg-codeine [facility] 60 mg 60 mg 60 mg al tablet tablet tablet [facility] loperamide loperamide No loperamide [place] 2 mg 2 mg 2 mg da capsule capsule capsule [facility] meloxicam meloxicam No meloxicam [place] 15 mg 15 mg 15 mg da tablet TAKE tablet TAKE tablet [facility] 1 TABLET BY 1 TABLET BY TAKE 1 al MOUTH DAILY MOUTH DAILY TABLET BY Health MOUTH Outre[facility] DAILY h Program mesalamine mesalamine No mesalamine [place] [...] 10 mg t 10 mg da tablet TAKE tablet TAKE tablet [facility] 1 TABLET BY 1 TABLET BY TAKE 1 al MOUTH DAILY MOUTH DAILY TABLET BY Health MOUTH Outre[facility] DAILY h Program naproxen naproxen No naproxen [facility] 500 mg 500 mg 500 mg da tablet tablet tablet [facility] Narcan 4 Narcan 4 No Narcan 4 [facility] mg/actuatio mg/actuatio mg/actuati da n nasal n nasal on nasal [facility] spray USE 1 spray USE 1 spray USE al SPRAY IN SPRAY IN 1 SPRAY IN H ealth ONE NOSTRIL ONE NOSTRIL ONE O utreac EVERY 2-3 EVERY 2-3 NOSTRIL h MINUTES MINUTES EVERY 2-3 Prog kam UNTIL UNTIL MINUTES RESPONSIVE RESPONSIVE UNTIL OR EMS OR EMS RESPONSIVE ARRIVES ARRIVES OR EMS ARRIVES nitrofurant nitrofurant No nitrofuran [facility] oin oin toin da monohydrate monohydrate monohydrat [facility] /macrocryst /macrocryst e/macrocry al als 100 mg als 100 mg stals 100 Health capsule TK capsule TK mg capsule [facility] 1 C PO BID 1 C PO BID TK 1 C PO h FOR 5 DAYS FOR 5 DAYS BID FOR 5 Program DAYS alprazolam alprazolam No alprazolam [facility] 1 mg tablet 1 mg tablet 1 mg d a tablet [facility] nystatin nystatin No nystatin [facility] 100,000 100,000 100,000 da unit/gram unit/gram unit/gram [facility] topical topical topical al cream cream cream Health [facility] Program nystatin nystatin No nystatin [facility] 100,000 100,000 100,000 da unit/mL unit/mL unit/mL [facility] p oral oral oral al suspension suspension suspension Health Out[facility] Program ondansetron ondansetron No ondansetro [facility] 4 mg 4 mg n 4 mg da disintegrat disintegrat disintegra [facility] ing tablet ing tablet ting al DISSOLVE 1 DISSOLVE 1 tablet H ealth TABLET ON TABLET ON DISSOLVE 1 [facility] THE TONGUE THE TONGUE TABLET ON h EVERY 8 EVERY 8 THE TONGUE Pro gram HOURS HOURS EVERY 8 NEEDED FOR NEEDED FOR HOURS NAUSEA NAUSEA NEEDED FOR NAUSEA oxycodone oxycodone No oxycodone [facility] 10 mg 10 mg 10 mg da tablet tablet tablet [facility] oxycodone-a oxycodone-a No oxycodone- [facility] cetaminophe cetaminophe acetaminop da n 10 mg-325 n 10 mg-325 hen 10 [facility] mg tablet mg tablet mg-325 mg al TAKE 1 TAKE 1 tablet Health TABLET BY TABLET BY TAKE 1 Out re[facility] MOUTH EVERY MOUTH EVERY TABLET BY h 8 HOURS FOR 8 HOURS FOR MOUTH Program 10 DAYS 10 DAYS EVERY 8 NEEDED NEEDED HOURS FOR 10 DAYS NEEDED pantoprazol pantoprazol No pantoprazo [place] e 40 mg e 40 mg le 40 mg da tablet,sarah tablet,sarah tablet,del [facility] yed release yed release ayed a l TAKE 1 TAKE 1 release Health TABLET BY TABLET BY TAKE 1 Out reac MOUTH TWICE MOUTH TWICE TABLET BY h DAILY DAILY MOUTH Program TWICE DAILY prednisone prednisone No prednisone [facility] 10 mg 10 mg 10 mg da tablet [facility] prednisone prednisone No prednisone [facility] 20 mg 20 mg 20 mg da tablet [facility] prednisone prednisone No prednisone [facility] 5 mg tablet 5 mg tablet 5 [facility] Proctozone- Proctozone- No Proctozone [facility] HC 2.5 % HC 2.5 % -HC 2.5 % da topical topical topical [facility] p cream cream cream al perineal perineal perineal Hea lth applicator applicator applicator Outreac h Program alprazolam alprazolam No alprazolam [facility] 2 mg tablet 2 mg tablet 2 mg d a tablet [facility] Seroquel 50 Seroquel 50 No 1 Q1D Seroquel [facility] mg tablet mg tablet 50 mg da Take 1 Take 1 tablet [facility] tablet tablet Take 1 al every day every [...] [facility] s syringe s syringe us syringe al Health Out[facility] h Program sucralfate sucralfate No sucralfate [facility] 1 gram 1 gram 1 gram da tablet tablet tablet [facility] sulfamethox sulfamethox No [...] oral [facility] solution solution solution h Program terbinafine terbinafine No terbinafin [facility] HCl 250 mg HCl 250 mg e HCl 250 da tablet TAKE tablet TAKE mg tablet [facility] 1 TABLET BY 1 TABLET BY TAKE 1 al MOUTH EVERY MOUTH EVERY TABLET BY Health DAY DAY MOUTH [facility] EVERY DAY h Program terconazole terconazole No terconazol [facility] 0.4 % 0.4 % e 0.4 % da vaginal vaginal vaginal [facility] p cream cream cream al [facility] Out[facility] Program terconazole terconazole No terconazol [facility] 0.8 % 0.8 % e 0.8 % da vaginal vaginal vaginal [facility] p cream cream cream al INSERT ONE INSERT ONE INSERT ONE Health APPLICATORF APPLICATORF APPLICATOR [facility] UL UL FUL h VAGINALLY VAGINALLY VAGINALLY Program AT BEDTIME AT BEDTIME AT BEDTIME FOR 3 DAYS FOR 3 DAYS FOR 3 DAYS tramadol 50 tramadol 50 No tramadol [facility] mg tablet mg tablet 50 mg da tablet [facility] amoxicillin amoxicillin No amoxicilli [facility] 500 mg 500 mg n 500 mg da capsule capsule capsule [facility] triamcinolo triamcinolo [...] [facility] tablet tablet tablet h Program baclofen 20 baclofen 20 No baclofen [facility] mg tablet mg tablet 20 mg da TAKE 1 TAKE 1 tablet Medical TABLET BY TABLET BY TAKE 1 [facility] up MOUTH FOUR MOUTH FOUR TABLET BY TIMES DAILY TIMES DAILY MOUTH FOUR TIMES DAILY buspirone buspirone No buspirone [facility] 15 mg 15 mg 15 mg da tablet TAKE tablet TAKE tablet Medical 1 TABLET BY 1 TABLET BY TAKE 1 Group MOUTH FOUR MOUTH FOUR TABLET BY TIMES DAILY TIMES DAILY MOUTH FOUR TIMES DAILY Chantix 1 Chantix 1 No Chantix 1 [facility] mg tablet mg tablet mg tablet da Take 1 Take 1 Take 1 Medical tablet tablet tablet Group twice a day twice a day twice a by oral by oral day by route for route for oral route 90 days. 90 days. for 90 days. clonazepam clonazepam No clonazepam [facility] 1 mg tablet 1 mg tablet 1 mg d a TAKE 1 TAKE 1 tablet Medical TABLET BY TABLET BY TAKE 1 [facility] up MOUTH THREE MOUTH THREE TABLET BY TIMES DAILY TIMES DAILY MOUTH THREE TIMES DAILY diclofenac diclofenac No diclofenac [place] 1 % topical 1 % topical 1 % d a gel gel topical Medical gel Group escitalopra escitalopra No escitalopr [facility] m 10 mg m 10 mg am 10 mg da tablet TAKE tablet TAKE tablet Medical 1 TABLET BY 1 TABLET BY TAKE 1 Group MOUTH EVERY MOUTH EVERY TABLET BY MORNING MORNING MOUTH EVERY MORNING estradiol 2 estradiol 2 No estradiol [facility] mg tablet mg tablet 2 mg da TAKE 1 TAKE 1 tablet Medical TABLET BY TABLET BY TAKE 1 [facility] up MOUTH EVERY MOUTH EVERY TABLET BY DAY DAY MOUTH EVERY DAY fluticasone fluticasone No fluticason [facility] propionate propionate e da 50 50 propionate Medical mcg/actuati mcg/actuati 50 G roup on nasal on nasal mcg/actuat spray,suspe spray,suspe ion nasal nsion SHAKE nsion SHAKE spray,susp LIQUID AND LIQUID AND ension USE 1 SPRAY USE 1 SPRAY SHAKE IN EACH IN EACH LIQUID AND NOSTRIL NOSTRIL USE 1 EVERY DAY EVERY DAY SPRAY IN EACH NOSTRIL EVERY DAY furosemide furosemide No furosemide [facility] 20 mg 20 mg 20 mg da tablet TAKE tablet TAKE tablet Medical 1 TABLET BY 1 TABLET BY TAKE 1 Group MOUTH EVERY MOUTH EVERY TABLET BY DAY DAY MOUTH EVERY DAY gabapentin gabapentin No gabapentin [facility] 600 mg 600 mg 600 mg da tablet TAKE tablet TAKE tablet Medical 1 TABLET BY 1 TABLET BY TAKE 1 Group MOUTH FOUR MOUTH FOUR TABLET BY TIMES DAILY TIMES DAILY MOUTH FOUR TIMES DAILY montelukast montelukast No montelukas [facility] 10 mg 10 mg t 10 mg da tablet TAKE tablet TAKE tablet Medical 1 TABLET BY 1 TABLET BY TAKE 1 Group MOUTH DAILY MOUTH DAILY TABLET BY MOUTH DAILY ondansetron ondansetron No ondansetro [facility] 4 mg 4 mg n 4 mg da disintegrat disintegrat disintegra Medical ing tablet ing tablet ting [facility] up DISSOLVE 1 DISSOLVE 1 tablet TABLET ON TABLET ON DISSOLVE 1 THE TONGUE THE TONGUE TABLET ON EVERY 8 EVERY 8 THE TONGUE HOURS HOURS EVERY 8 NEEDED FOR NEEDED FOR HOURS NAUSEA NAUSEA NEEDED FOR NAUSEA oxycodone-a oxycodone-a No oxycodone- [facility] cetaminophe cetaminophe acetaminop da n 10 mg-325 n 10 mg-325 hen 10 Medical mg tablet mg tablet mg-325 mg Group TAKE 1 TAKE 1 tablet TABLET BY TABLET BY TAKE 1 MOUTH EVERY MOUTH EVERY TABLET BY 8 HOURS FOR 8 HOURS FOR MOUTH 10 DAYS 10 DAYS EVERY 8 NEEDED NEEDED HOURS FOR 10 DAYS NEEDED pantoprazol pantoprazol No pantoprazo [place] e 40 mg e 40 mg le 40 mg da tablet,sarah tablet,sarah tablet,del Medical yed release yed release ayed G roup TAKE 1 TAKE 1 release TABLET BY TABLET BY TAKE 1 MOUTH TWICE MOUTH TWICE TABLET BY DAILY DAILY MOUTH TWICE DAILY phentermine phentermine No 1 Q1D phentermin [facility] 37.5 mg 37.5 mg e 37.5 mg da tablet Take tablet Take tablet Medical 1 tablet 1 tablet Take 1 Group every day every day tablet by oral by oral every day route for route for by oral 30 days. 30 days. route for 30 days. quetiapine quetiapine No quetiapine [facility] 50 mg 50 mg 50 mg da tablet TAKE tablet TAKE tablet Medical 1 TABLET BY 1 TABLET BY TAKE 1 Group MOUTH EVERY MOUTH EVERY TABLET BY DAY AT DAY AT MOUTH BEDTIME BEDTIME EVERY DAY AT BEDTIME Reclast 5 Reclast 5 No Reclast 5 [facility] mg/100 mL mg/100 mL mg/100 mL da intravenous intravenous intravenou Medical piggyback piggyback s Group Inject by Inject by piggyback intravenous intravenous Inject by route. route. intravenou s route. Stelara 90 Stelara 90 No Stelara 90 [facility] mg/mL mg/mL mg/mL da subcutaneou subcutaneou subcutaneo Medical s syringe s syringe us syringe Group baclofen 10 baclofen 10 No baclofen [facility] mg tablet mg tablet 10 mg da tablet [facility] baclofen 20 baclofen 20 No baclofen [facility] mg tablet mg tablet 20 mg da TAKE 1 TAKE 1 tablet [facility] TABLET BY TABLET BY TAKE 1 al MOUTH FOUR MOUTH FOUR TABLET BY Health TIMES DAILY TIMES DAILY MOUTH FOUR [facility] TIMES h DAILY Program buspirone buspirone No buspirone [facility] 15 mg 15 mg 15 mg da tablet TAKE tablet TAKE tablet [facility] 1 TABLET BY 1 TABLET BY TAKE 1 al MOUTH FOUR MOUTH FOUR TABLET BY Health TIMES DAILY TIMES DAILY MOUTH FOUR [facility] TIMES h DAILY Program cefadroxil cefadroxil No cefadroxil [facility] 500 mg 500 mg 500 mg da capsule capsule capsule [facility] p TAKE 1 TAKE 1 TAKE 1 al CAPSULE BY CAPSULE BY CAPSULE BY Health MOUTH TWICE MOUTH TWICE MOUTH [facility] DAILY FOR 7 DAILY FOR 7 TWICE h DAYS DAYS DAILY FOR Program 7 DAYS cefuroxime cefuroxime No cefuroxime [facility] axetil 250 axetil 250 axetil 250 da mg tablet mg tablet mg tablet [facility] TK 1 T PO TK 1 T PO TK 1 T PO al BID FOR 7 BID FOR 7 BID FOR 7 Health DAYS DAYS DAYS Outreac h Program cefuroxime cefuroxime No cefuroxime [facility] axetil 500 axetil 500 axetil 500 da mg tablet mg tablet mg tablet [facility] celecoxib celecoxib No celecoxib [facility] 100 mg 100 mg 100 mg da capsule capsule capsule [facility] cephalexin cephalexin No cephalexin [facility] 500 mg 500 mg 500 mg da capsule capsule capsule [facility] Chantix 1 Chantix 1 No Chantix 1 [facility] mg tablet mg tablet mg tablet da TAKE 1 TAKE 1 TAKE 1 [facility] TABLET BY TABLET BY TABLET BY al MOUTH TWICE MOUTH TWICE MOUTH Health DAILY DAILY TWICE [facility]re[facility] DAILY h Program Chantix Chantix No Chantix [facility] Starting Starting Starting da Month Box Month Box Box [facility] 0.5 mg 0.5 mg 0.5 mg al (11)-1 mg (11)-1 mg (11)-1 mg Health (42) (42) (42) Outre[facility] tablets in tablets in tablets in h dose pack dose pack dose pack Program chlorhexidi chlorhexidi No chlorhexid [facility] ne ne ine da gluconate gluconate gluconate [facility] 0.12 % 0.12 % 0.12 % al mouthwash mouthwash mouthwash [facility] Program cholestyram cholestyram No cholestyra [facility] ine (with ine (with mine (with da sugar) 4 sugar) 4 sugar) 4 E[facility] sc[facility] gram oral gram oral gram oral al powder powder powder Health Outre[facility] h Program ciclopirox ciclopirox No ciclopirox [facility] 8 % topical 8 % topical 8 % d a solution solution topical [facility] [employer] APPLY TO APPLY TO solution al THE THE APPLY TO Health AFFECTED AFFECTED THE Outreac AREA ONCE AREA ONCE AFFECTED h DAILY DAILY AREA ONCE Program PREFERABLY PREFERABLY DAILY AT BEDTIME AT BEDTIME PREFERABLY OR 8 HOURS OR 8 HOURS AT BEDTIME BEFORE BEFORE OR 8 HOURS WASHING WASHING BEFORE WASHING clindamycin clindamycin No clindamyci [facility] HCl 300 mg HCl 300 mg n HCl 300 da capsule capsule mg capsule [facility] Program clonazepam clonazepam No clonazepam [facility] 1 mg tablet 1 mg tablet 1 mg d a TAKE 1 TAKE 1 tablet [facility] TABLET BY TABLET BY TAKE 1 al MOUTH THREE MOUTH THREE TABLET BY Health TIMES DAILY TIMES DAILY MOUTH [facility]re[facility] THREE h TIMES Program DAILY Clotrimazol Clotrimazol No 1applic Q1D Clotrimazo [facility] e 3 Day 2 % e 3 Day 2 % ator(s) le 3 Day 2 da vaginal vaginal ful % vaginal [facility] [employer] cream cream cream al Insert 1 Insert [...] for for for al injection injection injection Health Outre[facility] Program cyclobenzap cyclobenzap No cyclobenza [facility] rine 10 mg rine 10 mg ariana 10 da tablet TAKE tablet TAKE mg tablet [facility] 1 TABLET BY 1 TABLET BY TAKE 1 al MOUTH EVERY MOUTH EVERY TABLET BY Health 8 HOURS 8 HOURS MOUTH [facility] EVERY 8 h HOURS Program diazepam 10 diazepam 10 No diazepam [facility] mg tablet mg tablet 10 mg da tablet [facility] diazepam 5 diazepam 5 No diazepam 5 [facility] mg tablet mg tablet mg tablet da [facility] diclofenac diclofenac No diclofenac [facility] 1 % topical 1 % topical 1 % d a gel SOHAN EXT gel SOHAN EXT topical [facility] AA Q 8 H AA Q 8 H gel SOHAN al UTD UTD EXT AA Q 8 Health H UTD Outreac h Program diclofenac diclofenac No diclofenac [facility] sodium 75 sodium 75 sodium 75 da mg mg mg [facility] tablet,sarah tablet,sarah tablet,del al yed release yed release ayed H ealth release Outreac h Program dicyclomine dicyclomine No dicyclomin [facility] 10 mg 10 mg e 10 mg da capsule capsule capsule [facility] dicyclomine dicyclomine No dicyclomin [facility] 20 mg 20 mg e 20 mg da tablet tablet tablet [facility] diphenoxyla diphenoxyla No diphenoxyl [facility] te-atropine te-atropine ate-atropi da 2.5 2.5 ne 2.5 [facility] mg-0.025 mg mg-0.025 mg mg-0.025 al tablet TAKE tablet TAKE mg tablet Health 1 TABLET BY 1 TABLET BY TAKE 1 [facility] MOUTH FOUR MOUTH FOUR TABLET BY h TIMES DAILY TIMES DAILY MOUTH FOUR Program NEEDED NEEDED TIMES DAILY NEEDED doxycycline doxycycline No doxycyclin [facility] hyclate 100 hyclate 100 e hyclate da mg tablet mg tablet 100 mg [facility] tablet al Health Out[facility] Program escitalopra escitalopra No escitalopr [place] m 10 mg m 10 mg am 10 mg da tablet TAKE tablet TAKE tablet [facility] 1 TABLET BY 1 TABLET BY TAKE 1 al MOUTH EVERY MOUTH EVERY TABLET BY [facility] MORNING MORNING MOUTH [facility] EVERY h MORNING Program estradiol 1 estradiol 1 No estradiol [facility] mg tablet mg tablet 1 mg da tablet [facility] estradiol 2 estradiol 2 No estradiol [facility] mg tablet mg tablet 2 mg da TAKE 1 TAKE 1 tablet [facility] TABLET BY TABLET BY TAKE 1 al MOUTH EVERY MOUTH EVERY TABLET BY MOUTH Outre[facility] EVERY DAY h Program fluconazole fluconazole No fluconazol [facility] 100 mg 100 mg e 100 mg da tablet tablet tablet [facility] acetaminoph acetaminoph No acetaminop [place] en 300 en 300 hen 300 da mg-codeine mg-codeine mg-codeine [facility] 30 mg 30 mg 30 mg al tablet tablet tablet Health Outre[facility] h Program fluconazole fluconazole No fluconazol [facility] 150 mg 150 mg e 150 mg da tablet TAKE tablet TAKE tablet [facility] 1 TABLET BY 1 TABLET BY TAKE 1 al MOUTH NOW MOUTH NOW TABLET BY [facility] FOR 1 DOSE FOR 1 DOSE MOUTH NOW Outre[facility] FOR 1 DOSE h Program fluconazole fluconazole No fluconazol [facility] 200 mg 200 mg e 200 mg da tablet tablet tablet [facility] furosemide furosemide No furosemide [facility] 20 mg 20 mg 20 mg da tablet TAKE tablet TAKE tablet [facility] 1 TABLET BY 1 TABLET BY TAKE 1 al MOUTH EVERY MOUTH EVERY TABLET BY MOUTH Outreac EVERY DAY h Program gabapentin gabapentin No gabapentin [facility] 300 mg 300 mg 300 mg da capsule TK capsule TK capsule TK [facility] ONE C PO ONE C PO ONE C PO al TID TID TID Health Outre[facility] h Program gabapentin gabapentin No gabapentin [facility] 600 mg 600 mg 600 mg da tablet TK 1 tablet TK 1 tablet TK [facility] T PO 6 T PO 6 1 T PO 6 al TIMES A DAY TIMES A DAY TIMES A DAY Outreac h Program hydrochloro hydrochloro No hydrochlor [facility] thiazide 25 thiazide 25 othiazide da mg tablet mg tablet 25 mg [facility] [employer] TAKE 1 TAKE 1 tablet al TABLET BY TABLET BY TAKE 1 Hea lth MOUTH EVERY MOUTH EVERY TABLET BY Outreac DAY DAY MOUTH h EVERY DAY Program hydrocodone hydrocodone No hydrocodon [facility] 5 5 e 5 da mg-acetamin mg-acetamin mg-acetami [facility] ophen 325 ophen 325 nophen 325 al mg tablet mg tablet mg tablet Health Outre[facility] h Program hydrocodone hydrocodone No hydrocodon [facility] 7.5 7.5 e 7.5 da mg-acetamin mg-acetamin mg-acetami [facility] ophen 325 ophen 325 nophen 325 al mg tablet mg tablet mg tablet Health Out[facility] Program hydrocortis hydrocortis No hydrocorti [place] one 20 mg one 20 mg sone 20 mg da tablet tablet tablet [facility] lidocaine lidocaine No lidocaine [facility] HCl 2 % HCl 2 % HCl 2 % da mucosal mucosal mucosal [facility] p jelly jelly jelly al Health Outre[facility] h Program Immunizations Ordered Filled Immunization Date Status Comments [facility] e Immunization Name Name influenza, influenza, 2020-02-12 Completed [facility] injectable, injectable, 00:00:00 [facility] p quadrivalent quadrivalent influenza, influenza, 2019-05-08 Completed [facility] injectable, injectable, 14:33:00 [facility] p quadrivalent, quadrivalent, preservative free preservative free zoster recombinant zoster recombinant Unknown Completed [facility] Vital Signs Vital Name Observation Time Observation Value Comments Source BMI (Body Mass 2020-08-12 00:00:00 31.6 kg/m2 [facility] Index) Group Body Weight 2020-08-12 00:00:00 2761.6 [oz_av] [facility] Height 2020-08-12 00:00:00 62 [facility] BP Diastolic 2020-07-31 00:00:00 82 mm[Hg] [facility] Height 2020-07-31 00:00:00 62 [in_i] [facility] BMI (Body Mass 2020-07-31 00:00:00 31.6 kg/m2 [facility] Index) Group BP Systolic 2020-07-31 00:00:00 116 mm[Hg] [facility] Body Weight 2020-07-31 00:00:00 172.6 [lb_av] [facility] BP Diastolic 2020-06-23 00:00:00 97 mm[Hg] [facility] Height 2020-06-23 00:00:00 62 [in_i] [facility] BMI (Body Mass 2020-06-23 00:00:00 28.7 kg/m2 [facility] BP Systolic 2020-06-23 00:00:00 142 mm[Hg] [facility] Body Weight 2020-06-23 00:00:00 2512 [oz_av] [facility] BP Diastolic 2020-05-27 00:00:00 71 mm[Hg] [facility] Height 2020-05-27 00:00:00 62 [in_i] [facility] BMI (Body Mass 2020-05-27 00:00:00 27.1 kg/m2 [facility] BP Systolic 2020-05-27 00:00:00 105 mm[Hg] [facility] Body Weight 2020-05-27 00:00:00 147.9 [lb_av] [facility] BP Diastolic 2020-05-04 00:00:00 76 mm[Hg] [facility] Height 2020-05-04 00:00:00 62 [in_i] [facility] BMI (Body Mass 2020-05-04 00:00:00 28.4 kg/m2 [facility] BP Systolic 2020-05-04 00:00:00 116 mm[Hg] [facility] Body Weight 2020-05-04 00:00:00 2481.6 [oz_av] [facility] BP Diastolic 2020-04-02 00:00:00 70 mm[Hg] [facility] Height 2020-04-02 00:00:00 62 [in_i] [facility] BMI (Body Mass 2020-04-02 00:00:00 27.4 [facility] BP Systolic 2020-04-02 00:00:00 101 mm[Hg] [facility] Body Weight 2020-04-02 00:00:00 149.7 [lb_av] [facility] BP Diastolic 2020-03-18 00:00:00 75 mm[Hg] [facility] Height 2020-03-18 00:00:00 62 [in_i] [facility] BMI (Body Mass 2020-03-18 00:00:00 27.3 kg/m2 [facility] BP Systolic 2020-03-18 00:00:00 124 mm[Hg] [facility] Body Weight 2020-03-18 00:00:00 2384 [oz_av] [facility] BP Diastolic 2020-01-24 00:00:00 83 mm[Hg] [facility] Height 2020-01-24 00:00:00 62 [in_i] [facility] BMI (Body Mass 2020-01-24 00:00:00 27.3 kg/m2 [facility] BP Systolic 2020-01-24 00:00:00 118 mm[Hg] [facility] Body Weight 2020-01-24 00:00:00 2384 [oz_av] [facility] BP Diastolic 2020-01-17 00:00:00 71 mm[Hg] [facility] Height 2020-01-17 00:00:00 62 [in_i] [facility] BMI (Body Mass 2020-01-17 00:00:00 27.1 kg/m2 [facility] BP Systolic 2020-01-17 00:00:00 107 mm[Hg] [facility] Body Weight 2020-01-17 00:00:00 148.2 [lb_av] [facility] BP Diastolic 2019-12-03 00:00:00 73 mm[Hg] [facility] Height 2019-12-03 00:00:00 62 [in_i] [facility] BMI (Body Mass 2019-12-03 00:00:00 27.1 kg/m2 [facility] BP Systolic 2019-12-03 00:00:00 105 mm[Hg] [facility] Body Weight 2019-12-03 00:00:00 148 [lb_av] [facility] BP Diastolic 2019-11-07 00:00:00 73 mm[Hg] [facility] Height 2019-11-07 00:00:00 62 [in_i] [facility] BMI (Body Mass 2019-11-07 00:00:00 27.1 kg[facility]m2 [facility] BP Systolic 2019-11-07 00:00:00 105 mm[Hg] [facility] Body Weight 2019-11-07 00:00:00 2369 [oz_av] [facility] BP Diastolic 2019-10-15 00:00:00 94 mm[Hg] [facility] Height 2019-10-15 00:00:00 62 [in_i] [facility] BMI (Body Mass 2019-10-15 00:00:00 27.8 kg/m2 [facility] BP Systolic 2019-10-15 00:00:00 135 mm[Hg] [facility] Body Weight 2019-10-15 00:00:00 2432 [oz_av] [facility] BP Diastolic 2019-07-12 00:00:00 77 mm[Hg] [facility] Height 2019-07-12 00:00:00 62 [in_i] [facility] BMI (Body Mass 2019-07-12 00:00:00 27.7 kg/m2 [facility] BP Systolic 2019-07-12 00:00:00 101 mm[Hg] [facility] Body Weight 2019-07-12 00:00:00 2425 [oz_av] [facility] BP Diastolic 2019-05-08 00:00:00 81 mm[Hg] [facility] Height 2019-05-08 00:00:00 62 [in_i] [facility] BMI (Body Mass 2019-05-08 00:00:00 27.3 kg[facility]m2 [facility] BP Systolic 2019-05-08 00:00:00 123 mm[Hg] [facility] Body Weight 2019-05-08 00:00:00 2384 [oz_av] [facility] BP Diastolic 2019-01-29 00:00:00 64 mm[Hg] [facility] Height 2019-01-29 00:00:00 62 [in_i] [facility] BMI (Body Mass 2019-01-29 00:00:00 27.9 kg/m2 [facility] Index) Group BP Systolic 2019-01-29 00:00:00 108 mm[Hg] [facility] Body Weight 2019-01-29 00:00:00 152.3 [lb_av] [facility] BP Diastolic 2019-01-25 00:00:00 71 mm[Hg] [facility] Height 2019-01-25 00:00:00 62 [in_i] [facility] BMI (Body Mass 2019-01-25 00:00:00 28.2 kg/m2 [facility] Index) Group BP Systolic 2019-01-25 00:00:00 91 mm[Hg] [facility] Body Weight 2019-01-25 00:00:00 154.2 [lb_av] [facility] BP Diastolic 2019-01-07 00:00:00 80 mm[Hg] [facility] Height 2019-01-07 00:00:00 62 [in_i] [facility] BMI (Body Mass 2019-01-07 00:00:00 29 kg/m2 [facility] Index) Group BP Systolic 2019-01-07 00:00:00 109 mm[Hg] [facility] Body Weight 2019-01-07 00:00:00 158.6 [lb_av] [facility] BP Diastolic 2018-12-27 00:00:00 67 mm[Hg] [facility] Height 2018-12-27 00:00:00 62 [in_i] [facility] BMI (Body Mass 2018-12-27 00:00:00 27.9 kg/m2 [facility] Index) Group BP Systolic 2018-12-27 00:00:00 92 mm[Hg] [facility] Body Weight 2018-12-27 00:00:00 152.3 [lb_av] [facility] BP Diastolic 2018-12-17 00:00:00 93 mm[Hg] [facility] Height 2018-12-17 00:00:00 62 [in_i] [facility] BMI (Body Mass 2018-12-17 00:00:00 28.3 kg/m2 [facility] Medical Index) Group BP Systolic 2018-12-17 00:00:00 137 mm[Hg] [facility] Body Weight 2018-12-17 00:00:00 2480 [oz_av] [facility] BP Diastolic 2018-12-07 00:00:00 73 mm[Hg] [facility] Height 2018-12-07 00:00:00 62 [in_i] [facility] BMI (Body Mass 2018-12-07 00:00:00 30 kg/m2 [facility] Medical Index) Group BP Systolic 2018-12-07 00:00:00 145 mm[Hg] [facility] Body Weight 2018-12-07 00:00:00 2624 [oz_av] [facility] BP Diastolic 2018-10-17 00:00:00 90 mm[Hg] [facility] Height 2018-10-17 00:00:00 62 [in_i] [facility] BMI (Body Mass 2018-10-17 00:00:00 27.3 kg/m2 [facility] Medical Index) Group BP Systolic 2018-10-17 00:00:00 153 mm[Hg] [facility] Body Weight 2018-10-17 00:00:00 2384 [oz_av] [facility] BP Diastolic 2018-09-17 00:00:00 84 mm[Hg] [facility] Height 2018-09-17 00:00:00 62 [in_i] [facility] BMI (Body Mass 2018-09-17 00:00:00 27.3 kg/m2 [facility] Medical Index) Group BP Systolic 2018-09-17 00:00:00 120 mm[Hg] [facility] Body Weight 2018-09-17 00:00:00 2384 [oz_av] [facility] BP Diastolic 2018-08-29 00:00:00 80 mm[Hg] [facility] Height 2018-08-29 00:00:00 62 [in_i] [facility] BMI (Body Mass 2018-08-29 00:00:00 27.3 kg/m2 [facility] Medical Index) Group BP Systolic 2018-08-29 00:00:00 105 mm[Hg] [facility] Body Weight 2018-08-29 00:00:00 2384 [oz_av] [facility] BP Diastolic 2018-08-15 00:00:00 94 mm[Hg] [facility] Height 2018-08-15 00:00:00 62 [in_i] [facility] BMI (Body Mass 2018-08-15 00:00:00 29.1 kg/m2 [facility] Medical Index) Group BP Systolic 2018-08-15 00:00:00 136 mm[Hg] [facility] Body Weight 2018-08-15 00:00:00 2544 [oz_av] [facility] Respitory Rate 2020-08-03 13:45:00 Memori al Markus Systolic (mm Hg) 2020-08-03 13:45:00 Isreal rial Markus Diastolic (mm Hg) 2020-08-03 13:45:00 Mem o[facility] Markus Respitory Rate 2020-08-03 13:30:00 [facility] Delong Systolic (mm Hg) 2020-08-03 13:30:00 Isreal rial Delong Diastolic (mm Hg) 2020-08-03 13:30:00 Mem [facility] Mark[facility] Respitory Rate 2020-08-03 13:15:00 [facility]ong Systolic (mm Hg) 2020-08-03 13:15:00 Isreal rial Markus Diastolic (mm Hg) 2020-08-03 13:15:00 Mem orial Delong Height 2020-07-31 19:34:00 [facility] 2020-07-31 19:34[facility]00 [facility] BMI Calculated 2020-07-31 19:34:00 [facility] Respitory Rate 2020-05-12 01:00:00 [facility] Systolic (mm Hg) 2020-05-12 01:00:00 Isreal rial Markus Diastolic (mm Hg) 2020-05-12 01:00:00 Mem [facility]ong Respitory Rate 2020-05-12 00:45:00 [facility] Mark[facility] Respitory Rate 2020-05-11 23:45:00 [facility]ong Systolic (mm Hg) 2020-05-11 23:45:00 Isreal rial Markus Diastolic (mm Hg) 2020-05-11 23:45:00 Mem o[facility] Markus Systolic (mm Hg) 2020-05-11 23:30:00 Isreal rial Delong Diastolic (mm Hg) 2020-05-11 23:30:00 Mem orial Markus Heart Rate 2020-05-11 16:14:00 [facility] Height 2020-05-07 16:08:00 157.48 cm [facility] Weight 2020-05-07 16:08:00 [facility] BMI Calculated 2020-05-07 16:08:00 [facility] Body height 2020-01-29 15:18:00 158.8 cm [facility] Body weight 2020-01-29 15:18:00 67.586 kg [facility] BMI 2020-01-29 15:18:00 26.82 kg/m2 [facility] Systolic blood 2020-01-09 14:45:00 106 mm[Hg] [facility] Diastolic blood 2020-01-09 14:45:00 68 mm[Hg] [facility] Heart rate 2020-01-09 14:45:00 77 /min [facility] Respiratory rate 2020-01-09 14:45:00 23 /min [facility] Oxygen saturation in 2020-01-09 14:45:00 95 /min [facility] Arterial blood by Medical Ce nter Pulse oximetry Body temperature 2020-01-09 14:18:00 36.28 Marguerite [facility] Body height 2020-01-09 12:00:00 157.5 cm [facility] Body weight 2020-01-09 12:00:00 65.318 kg [facility] BMI 2020-01-09 12:00:00 26.34 kg/m2 [facility] Systolic blood 2019-10-28 13:16:00 124 mm[Hg] [facility] Diastolic blood 2019-10-28 13:16:00 86 mm[Hg] [place] [facility] Heart rate 2019-10-28 13:16:00 73 /min [place] [facility] Respiratory rate 2019-10-28 13:16:00 18 /min [place] [facility] Body temperature 2019-10-28 10:50:00 36.11 Marguerite [place] [facility] Temperature Oral (F) 2017-02-18 23:13:00 98.9 F [facility] Heart Rate 2017-02-18 23:13:00 [facility] Respitory Rate 2017-02-18 23:13:00 [facility] Diastolic (mm Hg) 2017-02-18 23:13:00 Mem o[facility] Markus Systolic (mm Hg) 2017-02-18 23:13:00 Isreal rial Delong Diastolic (mm Hg) 2017-02-18 21:48:00 [facility] Respitory Rate 2017-02-18 21:48:00 [facility] Systolic (mm Hg) 2017-02-18 21:48:00 Isreal rial Markus Heart Rate 2017-02-18 21:48:00 [facility] Weight 2017-02-18 20:38:00 [facility] Temperature Oral (F) 2017-02-18 20:38:00 98.9 F [facility] Respitory Rate 2017-02-18 20:38:00 [facility] Heart Rate 2017-02-18 20:38:00 [facility] Systolic (mm Hg) 2017-02-18 20:38:00 Isreal rial Markus Diastolic (mm Hg) 2017-02-18 20:38:00 [facility]ong Systolic (mm Hg) 2016-10-12 12:36:00 Isreal rial Delong Diastolic (mm Hg) 2016-10-12 12:36:00 [facility] Heart Rate 2016-10-12 12:36:00 [facility] Temperature Oral (F) 2016-10-12 12:36:00 98.1 F [facility] Respitory Rate 2016-10-12 12:36:00 [facility] Temperature Oral (F) 2016-10-12 04:32:00 97.7 F [facility] Heart Rate 2016-10-12 04:32:00 [facility] Systolic (mm Hg) 2016-10-12 04:32:00 Isreal rial Markus Diastolic (mm Hg) 2016-10-12 04:32:00 [facility] Respitory Rate 2016-10-12 04:32:00 [facility] Temperature Oral (F) 2016-10-12 00:11:00 98.2 F [facility] Systolic (mm Hg) 2016-10-12 00:11:00 Isreal rial Delong Diastolic (mm Hg) 2016-10-12 00:11:00 Mem [facility] Respitory Rate 2016-10-12 00:11:00 [facility] Heart Rate 2016-10-12 00:11:00 [facility] BMI Calculated 2016-10-10 07:28:00 [facility] Weight 2016-10-10 07:28:00 [facility] Height 2016-10-10 07:28:00 157.48 cm [facility] Weight 2016-10-10 03:22:00 [facility] Temperature Oral (F) 2016-02-10 21:38:00 98.2 F [facility] Respitory Rate 2016-02-10 21:38:00 [facility] Heart Rate 2016-02-10 21:38:00 [facility] Systolic (mm Hg) 2016-02-10 21:38:00 Isreal rial Delong Diastolic (mm Hg) 2016-02-10 21:38:00 [facility] Height 2016-02-10 18:31:00 157.48 cm [facility] Weight 2016-02-10 18:31:00 [facility] BMI Calculated 2016-02-10 18:31:00 [facility] Systolic (mm Hg) 2016-02-10 18:31:00 Isreal rial Markus Diastolic (mm Hg) 2016-02-10 18:31:00 [facility] Respitory Rate 2016-02-10 18:31:00 [facility] Heart Rate 2016-02-10 18:31:00 [facility] Temperature Oral (F) 2016-02-10 18:31:00 98.4 F [facility] Temperature Oral (F) 2014-08-13 16:57:00 98.1 F [facility] Heart Rate 2014-08-13 16:57:00 [facility] Systolic (mm Hg) 2014-08-13 16:57:00 Isreal rial Markus Diastolic (mm Hg) 2014-08-13 16:57:00 [facility] Respitory Rate 2014-08-13 16:57:00 [facility] Respitory Rate 2014-08-13 15:44:00 [facility] Heart Rate 2014-08-13 15:44:00 [facility] Systolic (mm Hg) 2014-08-13 15:44:00 Isreal rial Markus Diastolic (mm Hg) 2014-08-13 15:44:00 [facility] Heart Rate 2014-08-13 14:30:00 [facility] Respitory Rate 2014-08-13 14:30:00 [facility] Systolic (mm Hg) 2014-08-13 14:30:00 Isreal rial Delong Diastolic (mm Hg) 2014-08-13 14:30:00 [facility] Weight 2014-08-13 11:54:00 [facility] BMI Calculated 2014-08-13 11:54:00 [facility] Height 2014-08-13 11:54:00 170.18 cm [facility] Temperature Oral (F) 2014-08-13 11:54:00 97.4 F [facility] Heart Rate 2014-03-09 17:53:00 [facility] Temperature Oral (F) 2014-03-09 17:53:00 97.9 F [facility] Systolic (mm Hg) 2014-03-09 17:53:00 Isreal rial Markus Respitory Rate 2014-03-09 17:53:00 [facility] Diastolic (mm Hg) 2014-03-09 17:53:00 [facility] Diastolic (mm Hg) 2014-03-09 15:56:00 [facility] Systolic (mm Hg) 2014-03-09 15:56:00 Isreal rial Delong Respitory Rate 2014-03-09 15:56:00 [facility] Heart Rate 2014-03-09 15:56:00 [facility] Temperature Oral (F) 2014-03-09 15:56:00 97.9 F [facility] Weight 2014-03-09 11:40:00 [facility] Height 2014-03-09 11:40:00 160.02 cm [facility] BMI Calculated 2014-03-09 11:40:00 [facility] Temperature Oral (F) 2014-03-09 11:40:00 98.1 F [facility] Heart Rate 2014-03-09 11:40:00 [facility] Respitory Rate 2014-03-09 11:40:00 [facility] Diastolic (mm Hg) 2014-03-09 11:40:00 [facility] Systolic (mm Hg) 2014-03-09 11:40:00 Isreal rial Delong Systolic (mm Hg) 2014-01-14 23:08:00 Isreal rial Delong Diastolic (mm Hg) 2014-01-14 23:08:00 [facility] Temperature Oral (F) 2014-01-14 23:08:00 98.3 F [facility] Heart Rate 2014-01-14 23:08:00 [facility] Respitory Rate 2014-01-14 23:08:00 [facility] Respitory Rate 2014-01-14 20:30:00 [facility] Systolic (mm Hg) 2014-01-14 20:30:00 Isreal rial Markus Diastolic (mm Hg) 2014-01-14 20:30:00 [facility] Heart Rate 2014-01-14 20:30:00 [facility] Systolic (mm Hg) 2014-01-14 16:36:00 Isreal rial Markus Respitory Rate 2014-01-14 16:36:00 [facility] Diastolic (mm Hg) 2014-01-14 16:36:00 [facility] Heart Rate 2014-01-14 16:36:00 [facility] Temperature Oral (F) 2014-01-14 13:03:00 99.1 F [facility] Height 2014-01-14 13:03:00 157.48 cm [facility] Weight 2014-01-14 13:03:00 [facility] BMI Calculated 2014-01-14 13:03:00 [facility] Systolic (mm Hg) 2014-01-14 07:25:00 Isreal rial Delong Diastolic (mm Hg) 2014-01-14 07:25:00 [facility] Respitory Rate 2014-01-14 07:25:00 [facility] Heart Rate 2014-01-14 07:25:00 [facility] Temperature Oral (F) 2014-01-14 07:25:00 98.5 F [facility] Heart Rate 2014-01-14 03:04:00 [facility] Respitory Rate 2014-01-14 03:04:00 [facility] Temperature Oral (F) 2014-01-14 03:04:00 98.8 F [facility] Diastolic (mm Hg) 2014-01-14 03:04:00 Mem orial Makrus Systolic (mm Hg) 2014-01-14 03:04:00 Isreal rial Markus Weight 2014-01-14 03:04:00 [facility] Temperature Oral (F) 2013-11-22 16:34:00 98.6 F [facility] Heart Rate 2013-11-22 16:34:00 [facility] Systolic (mm Hg) 2013-11-22 16:34:00 Isreal rial Markus Respitory Rate 2013-11-22 16:34:00 [facility] Diastolic (mm Hg) 2013-11-22 16:34:00 [facility] BMI Calculated 2013-11-22 15:46:00 [facility] Height 2013-11-22 15:46:00 157.48 cm [facility] Weight 2013-11-22 15:46:00 [facility] Respitory Rate 2013-11-22 15:46:00 [facility] Heart Rate 2013-11-22 15:46:00 [facility] Temperature Oral (F) 2013-11-22 15:46:00 98.1 F [facility] Systolic (mm Hg) 2013-11-22 15:46:00 Isreal rial Markus Diastolic (mm Hg) 2013-11-22 15:46:00 [facility] Weight 2013-08-05 15:21:09 [facility] Temperature Oral (F) 2013-08-05 15:21:09 97.7 F [facility] Systolic (mm Hg) 2013-08-05 15:21:09 Isreal rial Delong Diastolic (mm Hg) 2013-08-05 15:21:09 [facility] Heart Rate 2013-08-05 15:21:09 [facility] Respitory Rate 2013-08-05 15:21:09 Tom al [facility] Height 2013-02-01 15:27:40 [facility] Weight 2013-02-01 15:27:40 [facility] Temperature Oral (F) 2013-02-01 15:27:40 97.5 F [facility] Heart Rate 2013-02-01 15:27:40 [facility] Systolic (mm Hg) 2013-02-01 15:27:40 Isreal altman Delong Diastolic (mm Hg) 2013-02-01 15:27:40 [facility] Respitory Rate 2013-02-01 15:27:40 [facility] Procedures Procedure Date / Time Performing Clinician Source Performed Knee Surgery 2020-08-03 00:00:00 [facility] Procedure on Knee 2020-05-11 00:00:00 [facility] Nerve Block 2020-03-03 00:00:00 [facility] XR KNEE 4+ VW LEFT 2020-01-29 15:35:35 Martinez [facility] [place] ARTHROCENTESIS 2020-01-29 15:10:00 Faby Rodriguez ethodist ASPIR&/INJ MAJOR JT/BURSA Paris W/O US REPORT OF PROCEDURE - 2020-01-09 14:24:10 Arnaldo Zelaya [facility] ENDOSCOPY [facility] TISSUE EXAM 2020-01-09 14:19:00 Arnaldo Zelaya [facility] COLONOSCOPY,BIOPSY 2020-01-09 13:44:00 Arnaldo Zelaya [facility] Colonoscopy 2020-01-07 00:00:00 [facility] dical Group MRI LOWER EXTREMITY 2019-11-28 17:48:41 Martinez [facility] EXTERNAL STUDY MRI, knee, w/o contrast 2019-11-19 00:00:00 [facility] US, doppler, venous 2019-10-15 00:00:00 [facility] XR, knee, 3 view 2019-10-15 00:00:00 Janna Chen ed[facility] Group unlisted imaging order 2018-12-27 00:00:00 [facility] smoking/tobacco cessation, 2013-02-01 15:27:40 [facility] patient education and counseling vaginal Pap smear results 2012-01-30 16:10:03 Me morial [facility]ong Hysterectomy 2006-05-01 00:00:00 [facility] Caesarean Section [facility] Total Hysterectomy [facility] Appendectomy [facility] Arthroscopy of ankle [facility] section [facility] n Cholecystectomy [facility] Colon operation [facility] Hysterectomy [facility] Nasal operation [facility] Knee [facility] replacement<sup>1</sup> Large Intestine Excision [facility] Cholecystectomy [facility] Plan of Care Planned Activity Planned Date Details Comments Source Future Scheduled Test 2020-11-29 INFLUENZA VACCINE [place] [facility] 00:00:00 [code = INFLUENZA VACCINE] Future Scheduled Test 2019-12-31 IN[address] VACC[address] [facility] 00:[facility]00 (#1) [code = [facility] INFLUENZA VACCINE (#1)] Future Scheduled Test 2019-05-[address] [facility] 00:[facility]00 (12+) [code = [facility] DEPRESSION SCREENING (12+)] Future Scheduled Test 2016-09-[address] [facility] - 00:00:00 (procedure) [code = [facility] 03135115] Future Scheduled Test 1992-09-13 [facility] malignant neoplasm of [facility]ica [facility] Center cervix (procedure) [code = 925929499] Future Scheduled Test 1992-09-13 Screening for [place] [facility] 00:00:00 malignant neoplasm of cervix (procedure) [code = 786104879] Future Scheduled Test 1989-09-13 Hepatitis C screening [place] [facility] 00:00:00 (procedure) [code = 618832321] Future Scheduled Test 1987 COVID-19 VACCINE (1) [place] [facility] 00:00:00 [code = COVID-19 VACCINE (1)] Future Scheduled Test 1977-09-[address] [facility] - 00:00:00 0-64 YRS (1 of 1 - Medical C enter PPSV23) [code = PNEUMOCOCCAL VACCINE 0-64 YRS (1 of 1 - PPSV23)] Future Appointment 2020-11-16 Merari Pickett, [address] [facility] 00:00:00 [facility] [address]; , [place] [address] Future Appointment 2020-10-30 Candi Nicole 08:45:00 [facility]; [address], [place] [address] Future Appointment 2020-10-12 Jake Joan, [address] [facility] 10:00:00 [facility] [address]; , [place] [address] Future Appointment 2020-10-05 Vj Wang, [address] [place] 11:30:[address] , [place] [address] Outreach Program Future App[facility]ment 2020-10-05 [facility], [address] 00:00:[address] , [place] [address] Outreach Program Instructions [facility] Encounters Start End Encounter Admission Attending Care Care Encounter Source Date/Time Date/Time Type Type Clinicians Facility Department ID 2016-11-04 [facility] [id number] [place] 09[facility]30:00 [facility] 2020-08-12 2020-08-12 Merari [facility] [place] - [id number] M skyler 00:00:00 00:00:00 [facility] [address] [facility] [address], [place] [address] , Ph. 2020-08-03 2020-08-03 [facility] [id number] 05:11:00 09:30:00 Edgardo Jenkins 2020-08-03 2020-08-03 [facility] [id number] 05:11:00 09:30:00 Edgardo Jenkins 2020-08-03 2020-08-03 Outpatient [facility] [id number] Memoria 05:11:00 05:11:00 jessenia Roberts [facility] 2020-07-31 2020-07-31 PIERRE Nicole [place] - [id number] [facility] 00:00:00 00:00:00 MD: 600 [facility] [address], [facility], [place]aryngol [place] og[place]ionel [address] , Ph. 2020-07-06 2020-07-06 Vj VILLA [place] - [id number] M atagor 00:00:00 00:00:00 Jer Wang MD: [facility] Epi scop [address] [facility] [address] [facility] [address] [facility] , Ph. [phone] 2020-06-23 Merari GEE [place] - [id number] M atagor 00:00:00 00:00:00 Anahy Long, Medical Medical DOMESTIC MAID: [address] [facility] [address], [place] [address] , Ph. 2020-05-27 2020-05-27 Parish Adams [facility] [place] - [id number] [facility] 00:00:00 00:00:00 MD: 600 [facility] [address], [facility], [place]aryngol [place] Maur[place] [address] , Ph. 2020-05-11 2020-05-11 Outpatient Han, [facility] [id number] 09:36:00 19:40:00 Edgardo Jenkins 2020-05-11 2020-05-11 Outpatient [facility] [id number] Memoria 09:36:00 09:36:00 l Markus [facility] 2020-05-04 2020-05-04 Merari [facility] [place] - [id number] M atagor 00:00:00 00:00:00 Anahy Long, Medical Medical DOMESTIC MAID: 600 [facility] [address], [place] [address] , Ph. 2020-04-08 2020-04-08 Vj ALLEN [place] - [id number] M atagor 00:00:00 00:00:00 Jer Wang MD: [facility]osticism Epi scop [address] [facility] Regino [facility] [address] Progr , Ph. [phone] --[phone] 2020-04-02 Jake GEE [place] - [id number] M atagor 00:00:00 00:00:00 Discovery ysabel Franco MD: [address] [place] [address] [address], [place] [address] , Ph. [phone] 2020-03-18 2020-03-18 Merari JAY [place] - [id number] M atagor 00:00:00 00:00:00 Anahy Long Medical Medical DOMESTIC MAID: [address] [place] [address] [address], [place] [address] , Ph. 2020-01-29 2020-01-29 Outpatient SINGER, [facility] [id number] [place] 00:00:00 00:00:00 MARTINEZ [address] 2020-01-29 2020-01-29 Outpatient SINGER, [facility] [id number] [place] 00:00:00 00:00:00 MARTINEZ [address] 2020-01-29 2020-01-29 Outpatient SINGER, [facility] [id number] [place] 00:00:00 00:00:00 MARTINEZ [address] 2020-01-24 2020-01-24 Merari GEE [place] - [id number] M atagor 00:00:00 00:00:00 Anahy Long Medical Medical DOMESTIC MAID: [address] [place] [address] [address], [place] [address] , Ph. 2020-01-17 2020-01-17 Jake JAY [place] - [id number] M atagor 00:00:00 00:00:00 Discovery ysabel Franco MD: [address] [place] [address] 101, [place] [address] , Ph. [phone] 2019-12-17 2019-12-17 Office ARMANDO Sandoval [id number] 13:39:48 15:29:29 Visit Mohsen AMBULATOR 350.1.13.21 Y 0.2.7.2.686 [id number] 2019-12-11 2019-12-11 Telephone ADRIANE Maldonado [id number] 00:00:00 00:00:00 [facility] [employer] 350.1.13.10 Surgical 4.2.7.2.686 Specialti [id number] es [address] [place] 2019-12-09 2019-12-09 Vj VILLA [place] - [id number] M atagor 00:00:00 00:00:00 Jer Wang MD: [facility] Epi scop 1700 [facility] [address] [facility] , Ph. [phone] 2019-12-03 Ryan GEE [place] - [id number] M atagor 00:00:00 00:00:00 Discovery ysabel Maldonado MD: [address] [place] [address] - [facility] [address], [place] [address] , Ph. 2019-11-07 2019-11-07 Office Maldonado, [facility] [id number] 09:07:33 09:22:33 Visit Ryan [employer] 350.1.13.10 Surgical 4.2.7.2.686 Specialti [id number] es [address] [place] 2019-11-07 2019-11-07 Merari JAY [place] - [id number] M atagor 00:00:00 00:00:00 Anahy Long [facility] Medical DOMESTIC MAID: [address] [place] [address] Family [address], [place] [address] , Ph. 2019-10-31 2019-10-31 Outpatient AMAYA [facility] [id number] [place] 00:00:00 00:00:00 LEX [address] 2019-10-28 2019-10-28 Outpatient [facility] [id number] [place] 00:00:00 00:00:[address] 2019-10-15 2019-10-15 Julia MMG [place] - [id number] M atagor 00:00:00 00:00:00 Discovery ysabel Schuzl DOMESTIC MAID: [address] [address] , Ph. 2019-09-09 2019-09-09 Vj VILLA [place] - [id number] M atagor 00:00:00 00:00:00 Jer Wang MD: [facility]ostic[facility] Epi scop 1700 [facility] [address] [facility] , Ph. [phone] 2019-08-23 Merari MM [place] - [id number] M atagor 00:00:00 00:00:00 Anahy Long Medical Medical DOMESTIC MAID: [address] [address] , Ph. 2019-07-26 2019-07-26 Merari JAY [place] - [id number] M atagor 00:00:00 00:00:00 Anahy Long Medical Medical DOMESTIC MAID: [address] [address], [place] [address] , Ph. 2019-07-19 2019-07-19 Outpatient [facility] [id number] [place] 00:00:00 00:00:00 LEX [address] 2019-07-12 2019-07-12 Merari MMG [place] - [id number] M atagor 00:00:00 00:00:00 Anahy Long Medical Medical DOMESTIC MAID: [address] [place] [address] , Ph. 2019-07-11 2019-07-11 Office Mulugeta, BCGustavo [id number] 11:02:17 12:07:46 Visit Luís Keating AMBULATOR 350.1.13.21 Y 0.2.7.2.686 [id number] 2019-06-19 2019-06-19 Office [facility] [id number] 09:23:37 13:56:08 Visit Jase 350.1.13.21 0.2.7.2.686 [id number] 2019-06-19 2019-06-19 Office Jojosandy, [facility] 1.2.840.114 [id number] 10:50:49 11:20:49 Visit Arnaldo AMBULATOR 350.1.13.21 Y 0.2.7.2.686 [id number] 2019-06-12 2019-06-12 Office Jojosandy, [facility] [id number] 08:17:31 08:47:31 Visit Arnaldo AMBULATOR 350.1.13.21 Y 0.2.7.2.686 [id number] 2019-06-10 2019-06-10 Vj VILLA [place] - [id number] M atagor 00:00:00 00:00:00 Jer aWng MD: Gnosticism Epi scop 1700 [facility] [address], Health [facility] [address] , Ph. [phone] 2019-05-08 Mychal Syed [facility] [place] - [id number] M atagor 00:00:00 00:00:00 MD Suhas: [address] [address] , Ph. 2019-03-18 2019-03-18 Vj VILLA [place] - [id number] M atagor 00:00:00 00:00:00 Jer Wang MD: Gnosticism Epi scop 1700 [facility] [address], [address], [facility] [place], [place] [address] , Ph. [phone] 2019-01-29 2019-01-29 Jake JAY [place] - [id number] M atagor 00:00:00 00:00:00 Discovery ysabel Franco MD: [address] [place] [phone] , Ph. [phone] 2019-01-25 2019-01-25 Jake JAY [place] - [id number] M atagor 00:00:00 00:00:00 Discovery ysabel Franco MD: [address] [place] [phone] , Ph. [phone] 2019-01-07 2019-01-07 Jake JAY [place] - [id number] M atagor 00:00:00 00:00:00 Discovery ysabel Franco MD: [address] [place] [phone] , Ph. [phone] 2018-12-27 2018-12-27 Jake JAY [place] - [id number] M atagor 00:00:00 00:00:00 Discovery ysabel Franco MD: [address] [place] [phone] , Ph. [phone] 2018-12-18 2018-12-18 Office Jeremiah Otto [facility] [id number] 09:55:23 16:38:01 Visit K AMBULATOR [id number] Y [id number] 2018-12-17 2018-12-17 Mychal JAY [place] - [id number] M atagor 00:00:00 00:00:00 MD Suhas: [address], [place] - [address], [place] [address] , Ph. 2018-12-07 2018-12-07 Mychal JAY [place] - [id number] M atagor 00:00:00 00:00:00 MD Suhas: [address], [place] - [address], [place] [address] , Ph. 2018-10-17 2018-10-17 Mychal JAY [place] - [id number] M atagor 00:00:00 00:00:00 MD Suhas: [address], [place] - [facility] [address], [place] [address] , Ph. 2018-09-17 2018-09-17 Julia JAY [place] - [id number] M atagor 00:00:00 00:00:00 Discovery [facility] [address] [facility], [place] [address], [facility], [facility] [place] [address] , Ph. 2018-08-29 2018-08-29 Mychal JAY [place] - [id number] M atagor 00:00:00 00:00:00 MD Suhas: [address], [place] [address], [place] [address] , Ph. 2018-08-15 2018-08-15 Mychal JAY [place] - [id number] M atagor 00:00:00 00:00:00 MD Suhas: [address], [facility] [address] [facility], [place] [address] , Ph. 2017-02-18 2017-02-18 Outpatient Alvarado MHSL MHSL [id number] 15:36:00 19:04:00 Devin Skinner 2016-10-10 2016-10-12 Outpatient Vic MHSL MHSL [id number] 00:55:00 10:24:00 Balbir 31 2016-07-15 2016-07-19 Inpatient 1 HARSHIL ALLEN [facility] [id number] Hoahaoism 18:47:00 10:30:00 RAEES Hospit jocelyn ruelas ([facility] nt) 2016-02-10 2016-02-10 Outpatient Henderson, [facility] [id number] 13:15:00 16:40:00 Adele Lidia 30 2014-08-13 2014-08-13 Outpatient Abdirashid Dunn [facility] [id number] 06:48:00 12:01:00 Rob 29 2014-03-09 2014-03-09 Outpatient Keron, [facility] [id number] 05:36:00 12:21:00 Satnam Tara Zavala 2014-01-14 2014-01-14 Outpatient Jarrett Lara [facility] [id number] 07:52:00 18:11:00 Si 27 2014-01-13 2014-01-14 Outpatient Dallas Rios [facility] [id number] 21:58:00 02:26:00 26 2013-11-22 2013-11-22 Outpatient Anya [facility] [id number] 10:32:00 11:37:00 Raquel 25 Rose Marie 2013-11-19 2013-11-19 Emergency E OEI, [facility] [id number] [facility] 10:08:00 12:55:00 [facility] al Center Results Test Description Test Time Test Comments Results Result Sour e Comments IMMUNOLOGY 2020-08-03 Not Detected [facility] 10:40:00 (08/03/20 5:40 Delong AM) quest collection 2020-07-31 10:32:00 Test Item Value Reference Range Interpretation Comme nts quest collection (test code = quest collection) [facility] [id number] 10:32:00 Test Item Value Reference Range Interpretation Comments quest collection (test code = quest quest collection) [facility] [id number] 17:04:00Negative (05/11/20 11:04 AM)[facility]2 (COVID-19) Ag [Presence] in Respiratory specimen by Rapid [id number] 12:34:00 Test Item Value Reference Range Interpretation Comments SARS-CoV - 2 (test code = SARS-CoV - negative 2) [facility]inal[facility] macro (dipstick) panel - [id number] 11:41:00 Test Item Value Reference Range Interpretation Comments Leukocytes (test code = Leukocytes) Negative Nitrite (test code = Nitrite) negative Urobilinogen (test code = 1 Urobilinogen) Protein (test code = Protein) Negative pH (test code = pH) 7.0 Blood (test code = Blood) Negative Specific [place] (test code = 1.025 Specific [place]) Ketone (test code = Ketone) Negative Bilirubin (test code = Bilirubin) Small Glucose (test code = Glucose) Negative Appearance (test code = Appearance) Cloudy Color (test code = Color) Yellow [facility]inalysis macro (dipstick) panel - [id number] 11:41:00 Test Item Value Reference Range Interpretation Comments Leukocytes (test code = Leukocytes) Negative Nitrite (test code = Nitrite) negative Urobilinogen (test code = 1 Urobilinogen) Protein (test code = Protein) Negative pH (test code = pH) 7.0 Blood (test code = Blood) Negative Specific [place] (test code = 1.025 Specific [place]) Ketone (test code = Ketone) Negative Bilirubin (test code = Bilirubin) Small Glucose (test code = Glucose) Negative Appearance (test code = Appearance) Cloudy Color (test code = Color) Yellow [facility] CountyHemoglobin A1c [Mass/volume] in [id number] 11:30:00 Test Item Value Reference Range Interpretation Comments Hemoglobin A1c [Mass/volume] in Blood 5.8 % 4.0-6.0 (test code = 92639-3) [facility] 2000 panel - Serum or Plasma 2020-05-04 11:30:00 Test Item Value Reference Range Interpretation Comments glucose (test code = glucose) 98 mg/dL 74-106 Urea nitrogen [Mass/volume] in 17 mg/dL 6-20 Serum or Plasma (test code = 3094-0) osmolality calculated,serum (test 275 mOsm/kg 280-300 L code = osmolality calculated,serum) creatinine (test code = 0.7 mg/dL 0.50-0.90 creatinine) glomerular filtration rate (test >60.00 code = glomerular filtration rate) Urea nitrogen/Creatinine [Mass 24.3 12-20 H Ratio] in Serum or Plasma (test code = 3097-3) sodium level (test code = sodium 137 mmol/L 135-145 level) Potassium [Moles/volume] in Body 4.7 mmol/L 3.5-5.2 fluid (test code = 2821-7) chloride level (test code = 99 mmol/L 98-108 chloride level) CO2 (test code = CO2) 28 mmol/L 21-32 anion gap (test code = anion gap) 14.7 mEq/L 12-20 calcium level (test code = 8.8 mg/dL 8.6-10.0 calcium level) total protein (test code = total 6.8 g/dL 6.6-8.7 protein) albumin (test code = albumin) 3.6 g/dL 3.5-5.2 globulin (test code = globulin) 3.2 gm/dL A/G ratio (test code = A/G ratio) 1.1 >1.0 bilirubin,total (test code = <0.3 0.0-1.2 bilirubin,total) AST/SGOT (test code = AST/SGOT) 19 U/L 15-32 Alanine aminotransferase 16 U/L 0-33 [Enzymatic activity/volume] in Serum or Plasma (test code = 1742-6) Alkaline phosphatase [Enzymatic 101 U/L 35-105 activity/volume] in Serum or Plasma (test code = 6768-6) [facility] [Moles/volume] in Unspecified specimen 2020-05-04 11:30:00 Test Item Value Reference Range Interpretation Comments magnesium level (test code = 2.1 mg/dL 1.6-2.6 magnesium level) [facility] County[facility]ine kinase [Enzymatic activity/volume] in Serum or [id number] 11:30:00 Test Item Value Reference Range Interpretation Comments creatine kinase (test code = creatine 49 U/L 20-180 kinase) [facility] CountyPT/[id number] 11:30:00 Test Item Value Reference Range Interpretation Comments prothrombin time (test code = 9.9 seconds 10.3-12.3 L prothrombin time) INR in Blood by Coagulation assay 0.92 (test code = 85356-2) [facility] thromboplastin [id number] 11:30:00 Test Item Value Reference Range Interpretation Comments INR in Blood by Coagulation 27.1 seconds 22.5-37.0 assay (test code = 89231-5) [facility] CountyUrinalysis complete W Reflex Culture panel - Urine 2020-05-04 11:30:00 Test Item Value Reference Range Interpretation Comments Color of Urine by Auto (test dark yellow code = 16293-0) Appearance of Urine (test code clear clear = 5767-9) Glucose [Presence] in Urine by negative negative Automated test strip (test code = 78448-0) Bilirubin.total [Mass/volume] negative negative in Urine (test code = 1978-6) Ketones [Mass/volume] in Urine negative negative by Automated test strip (test code = 10538-7) Specific gravity of Urine by 1.025 1.003-1.030 Automated test strip (test code = 79602-9) blood urine (test code = blood negative negative urine) pH of Urine (test code = 7.500 5-9 2756-5) protein urine (UA) (test code = trace negative protein urine (UA)) Urobilinogen [Presence] in =2.0 0.2-1.0 H Urine (test code = 16289-8) Nitrite [Presence] in Urine by negative negative Test strip (test code = 5802-4) Leukocyte esterase [Presence] negative negative in Urine by Automated test strip (test code = 41286-0) Erythrocytes [#/volume] in =1-5 0-5 Urine by Automated count (test code = 798-9) Leukocytes [#/area] in Urine <1 0-5 sediment by Automated count (test code = 46355-9) Epithelial cells [Presence] in =6-10 0-5 Urine sediment by Light microscopy (test code = 71282-0) Bacteria identified in Urine by none detected none detect Culture (test code = 630-4) Casts [#/area] in Urine =2-5 none detect sediment by Automated count (test code = 54626-3) urine culture added? (test code no = urine culture added?) [facility] CountyThyrotropin [Units/volume] in Serum or [id number] 11:30:00 Test Item Value Reference Range Interpretation Comments Thyrotropin [Units/volume] in 4.22 uIU/mL 0.36-3.74 H Serum or Plasma (test code = 3016-3) [facility] CountyThyroxine (T4) free [Mass/volume] in Serum or Plasma 2020-05-04 11:30:00 Test Item Value Reference Range Interpretation Comments free T4 (test code = free T4) 1.27 NG/dL 0.93-1.7 [facility] CountyTriiodothyronine (T3) Free [Mass/volume] in Serum or [id number] 11:30:00 Test Item Value Reference Range Interpretation Comments free T3 (test code = free T3) 2.89 pg/mL 2.0-4.4 [facility] W Auto Differential panel - [id number] 11:30:00 Test Item Value Reference Range Interpretation Comments white blood count (test code = 5.9 K/uL 4.0-11.5 white blood count) red blood count (test code = red 4.02 M/uL 3.80-5.20 blood count) hemoglobin (test code = 12.8 g/dL 10.5-15.7 hemoglobin) hematocrit (test code = 40.4 % 34.0-50.0 hematocrit) MCV [Entitic volume] (test code = 100.5 fL 86-100 H 39125-2) mean corpuscular hemoglobin (test 31.8 pg 26.2-33.4 code = mean corpuscular hemoglobin) mean corpuscular HGB conc (test 31.7 g/dL 30-34 code = mean corpuscular HGB conc) red cell distribution width (test 13.2 % 12.0-15.5 code = red cell distribution width) platelet count (test code = 293 K/uL 165-450 platelet count) mean platelet volume (test code = 9.0 fL 9.4-12.6 L mean platelet volume) Segmented neutrophils/100 56.5 % 44.4-80.1 leukocytes in Blood (test code = 38628-8) Immature granulocytes [#/volume] 0.0 K/uL 0.0-0.03 in Blood (test code = 24007-4) lymphocyte% (test code = 35.9 % 10.0-50.0 lymphocyte%) mono % (test code = mono %) 4.7 % 3.6-12.0 eos % (test code = eos %) 2.2 % 0.0-5.4 Basophils/100 leukocytes in 0.5 % 0.1-1.2 Unspecified specimen (test code = 90118-2) Band form neutrophils [#/volume] 3.35 K/uL 1.56-6.13 in Blood (test code = 22691-2) Lymphocytes [#/volume] in 2.1 K/uL 1.18-3.74 Unspecified specimen by Automated count (test code = 26349-4) mono # (test code = mono #) 0.28 K/uL 0.24-0.86 eos # (test code = eos #) 0.13 K/uL 0.04-0.36 basophil # (test code = basophil 0.03 K/uL 0.01-0.08 #) NRBC% (test code = NRBC%) 0 /100 WBC 0-0.2 NRBC# (test code = NRBC#) 0 K/uL [facility]Differential panel, method unspecified - [id number] 11:30:00NeutrophilsBandLymphocyteAtypical LymphMonocyteEosinophilBasophilMetamyelocyteAbs Neutrophil Count (Man)Abs Lymph Count (Man)Abs Monocyte Count (Man)Abs Eosinophil Count (Man)Abs Basophil Count (Man)Platelet EstimateMataNorth Mississippi State HospitalHemoglobin A1c/Hemoglobin.total in [id number] 11:30:00 Test Item Value Reference Range Interpretation Comments Hemoglobin A1c [Mass/volume] in Blood 5.8 % 4.0-6.0 (test code = 69318-1) [facility]Com[facility] 2000 panel - Serum or Plasma 2020-05-04 11:30:00 Test Item Value Reference Range Interpretation Comments glucose (test code = glucose) 98 mg/dL 74-106 Urea nitrogen [Mass/volume] in 17 mg/dL 6-20 Serum or Plasma (test code = 3094-0) osmolality calculated,serum (test 275 mOsm/kg 280-300 L code = osmolality calculated,serum) creatinine (test code = 0.7 mg/dL 0.50-0.90 creatinine) glomerular filtration rate (test >60.00 code = glomerular filtration rate) Urea nitrogen/Creatinine [Mass 24.3 12-20 H Ratio] in Serum or Plasma (test code = 3097-3) sodium level (test code = sodium 137 mmol/L 135-145 level) Potassium [Moles/volume] in Body 4.7 mmol/L 3.5-5.2 fluid (test code = 2821-7) chloride level (test code = 99 mmol/L 98-108 chloride level) CO2 (test code = CO2) 28 mmol/L 21-32 anion gap (test code = anion gap) 14.7 mEq/L 12-20 calcium level (test code = 8.8 mg/dL 8.6-10.0 calcium level) total protein (test code = total 6.8 g/dL 6.6-8.7 protein) albumin (test code = albumin) 3.6 g/dL 3.5-5.2 globulin (test code = globulin) 3.2 gm/dL A/G ratio (test code = A/G ratio) 1.1 >1.0 bilirubin,total (test code = <0.3 0.0-1.2 bilirubin,total) AST/SGOT (test code = AST/SGOT) 19 U/L 15-32 Alanine aminotransferase 16 U/L 0-33 [Enzymatic activity/volume] in Serum or Plasma (test code = 1742-6) Alkaline phosphatase [Enzymatic 101 U/L 35-105 activity/volume] in Serum or Plasma (test code = 6768-6) [facility] CountyMagnesium [Moles/volume] in Unspecified specimen 2020-05-04 11:30:00 Test Item Value Reference Range Interpretation Comments magnesium level (test code = 2.1 mg/dL 1.6-2.6 magnesium level) [facility] CountyCreatine kinase [Enzymatic activity/volume] in Serum or [id number] 11:30:00 Test Item Value Reference Range Interpretation Comments creatine kinase (test code = creatine 49 U/L 20-180 kinase) [facility] CountyPT/[id number] 11:30:00 Test Item Value Reference Range Interpretation Comments prothrombin time (test code = 9.9 seconds 10.3-12.3 L prothrombin time) INR in Blood by Coagulation assay 0.92 (test code = 33634-7) [facility] CountyPT and aPTT panel - Platelet poor plasma by Coagulation [id number] 11:30:00 Test Item Value Reference Range Interpretation Comments INR in Blood by Coagulation 27.1 seconds 22.5-37.0 assay (test code = 97576-0) [facility] CountyUrinalysis complete W Reflex Culture panel - Urine 2020-05-04 11:30:00 Test Item Value Reference Range Interpretation Comments Color of Urine by Auto (test dark yellow code = 60418-7) Appearance of Urine (test code clear clear = 5767-9) Glucose [Presence] in Urine by negative negative Automated test strip (test code = 37256-1) Bilirubin.total [Mass/volume] negative negative in Urine (test code = 1978-6) Ketones [Mass/volume] in Urine negative negative by Automated test strip (test code = 89875-5) Specific gravity of Urine by 1.025 1.003-1.030 Automated test strip (test code = 14342-3) blood urine (test code = blood negative negative urine) pH of Urine (test code = 7.500 5-9 2756-5) protein urine (UA) (test code = trace negative protein urine (UA)) Urobilinogen [Presence] in =2.0 0.2-1.0 H Urine (test code = 16042-6) Nitrite [Presence] in Urine by negative negative Test strip (test code = 5802-4) Leukocyte esterase [Presence] negative negative in Urine by Automated test strip (test code = 09547-1) Erythrocytes [#/volume] in =1-5 0-5 Urine by Automated count (test code = 798-9) Leukocytes [#/area] in Urine <1 0-5 sediment by Automated count (test code = 23104-3) Epithelial cells [Presence] in =6-10 0-5 Urine sediment by Light microscopy (test code = 33365-4) Bacteria identified in Urine by none detected none detect Culture (test code = 630-4) Casts [#/area] in Urine =2-5 none detect sediment by Automated count (test code = 16161-8) urine culture added? (test code no = urine culture added?) [facility] CountyThyrotropin [Units/volume] in Serum or [id number] 11:30:00 Test Item Value Reference Range Interpretation Comments Thyrotropin [Units/volume] in 4.22 uIU/mL 0.36-3.74 H Serum or Plasma (test code = 3016-3) [facility] CountyThyroxine (T4) free [Mass/volume] in Serum or Plasma 2020-05-04 11:30:00 Test Item Value Reference Range Interpretation Comments free T4 (test code = free T4) 1.27 NG/dL 0.93-1.7 [facility] CountyTriiodothyronine (T3) Free [Mass/volume] in Serum or [id number] 11:30:00 Test Item Value Reference Range Interpretation Comments free T3 (test code = free T3) 2.89 pg/mL 2.0-4.4 [facility] W Auto Differential panel - [id number] 11:30:00 Test Item Value Reference Range Interpretation Comments white blood count (test code = 5.9 K/uL 4.0-11.5 white blood count) red blood count (test code = red 4.02 M/uL 3.80-5.20 blood count) hemoglobin (test code = 12.8 g/dL 10.5-15.7 hemoglobin) hematocrit (test code = 40.4 % 34.0-50.0 hematocrit) MCV [Entitic volume] (test code = 100.5 fL 86-100 H 24841-6) mean corpuscular hemoglobin (test 31.8 pg 26.2-33.4 code = mean corpuscular hemoglobin) mean corpuscular HGB conc (test 31.7 g/dL 30-34 code = mean corpuscular HGB conc) red cell distribution width (test 13.2 % 12.0-15.5 code = red cell distribution width) platelet count (test code = 293 K/uL 165-450 platelet count) mean platelet volume (test code = 9.0 fL 9.4-12.6 L mean platelet volume) Segmented neutrophils/100 56.5 % 44.4-80.1 leukocytes in Blood (test code = 64255-4) Immature granulocytes [#/volume] 0.0 K/uL 0.0-0.03 in Blood (test code = 72192-8) lymphocyte% (test code = 35.9 % 10.0-50.0 lymphocyte%) mono % (test code = mono %) 4.7 % 3.6-12.0 eos % (test code = eos %) 2.2 % 0.0-5.4 Basophils/100 leukocytes in 0.5 % 0.1-1.2 Unspecified specimen (test code = 22571-7) Band form neutrophils [#/volume] 3.35 K/uL 1.56-6.13 in Blood (test code = 00294-6) Lymphocytes [#/volume] in 2.1 K/uL 1.18-3.74 Unspecified specimen by Automated count (test code = 54952-6) mono # (test code = mono #) 0.28 K/uL 0.24-0.86 eos # (test code = eos #) 0.13 K/uL 0.04-0.36 basophil # (test code = basophil 0.03 K/uL 0.01-0.08 #) NRBC% (test code = NRBC%) 0 /100 WBC 0-0.2 NRBC# (test code = NRBC#) 0 K/uL [facility] CountyDifferential panel, method unspecified - [id number] 11:30:00NeutrophilsBandLymphocyteAtypical LymphMonocyteEosinophilBasophilMetamyelocyteAbs Neutrophil Count (Man)Abs Lymph Count (Man)Abs Monocyte Count (Man)Abs Eosinophil Count (Man)Abs Basophil Count (Man)Platelet EstimateMataNorth Mississippi State HospitalUrinalysis macro (dipstick) panel - [id number] 14:27:39 Test Item Value Reference Range Interpretation Comments Leukocytes (test code = Leukocytes) Negative Nitrite (test code = Nitrite) negative Urobilinogen (test code = .2 Urobilinogen) Protein (test code = Protein) Negative pH (test code = pH) 7.0 Blood (test code = Blood) Negative Specific [place] (test code = 1.010 Specific [place]) Ketone (test code = Ketone) Negative Bilirubin (test code = Bilirubin) Negative Glucose (test code = Glucose) Negative Appearance (test code = Appearance) Clear Color (test code = Color) Yellow [facility] CountyMRI Lower Extremity External [id number] 17:48:58This exam was not acquired at a [facility] facility and has not been interpreted by a [facility] Provider. The exam was imported into our imaging system.[facility] MethodistLarge Joint Arthrocentesis: knee, L [id number] 15:10:00Faby Rodriguez NP 01/29/2020 4:00 PMLarge Joint Arthrocentesis: knee, L kneeConsent given by: patientSite marked: site markedTimeout: Immediately prior to procedure a time out was called to verify the correct patient, procedure, equipment, work station support specialist and site/side marked as required Supporting DocumentationIndications: pain and joint swelling Procedure DetailsPreparation: Patient wasprepped and draped in the usual sterile fashionUltrasound guided: noLocation: knee - L knee Left side:Needle size: 22 GApproach: anterolateralLeft knee medications administered: 80 mg methylPREDNISolone acetate 40 mg/mL; 2 mL bupivacaine 0.5 % (5 mg/mL); 2 mL lidocaine 10 mg/mL (1 %)Patient tolerance: patient tolerated the procedure well with no immediate complicationsBryantown MethodistBacteria identified in Urine by [id number] 00:00:00 Test Item Value Reference Range Interpretation Comments Bacteria identified in Urine by comment Culture (test code = 630-4) [facility] CountyFollitropin [Units/volume] in Serum or [id number] 00:00:00 Test Item Value Reference Range Interpretation Comments Follitropin [Units/volume] in 0.5 mIU/mL Serum or Plasma (test code = 43378-6) [facility] CountyEstradiol (E2) [Mass/volume] in Serum or [id number] 00:00:00 Test Item Value Reference Range Interpretation Comments Estradiol (E2) [Mass/volume] in 47.3 pg/mL Serum or Plasma (test code = 2243-4) [facility] CountyUrinalysis macro (dipstick) panel - [id number] 13:53:54 Test Item Value Reference Range Interpretation Comments Leukocytes (test code = Leukocytes) Negative Nitrite (test code = Nitrite) positive Urobilinogen (test code = .2 Urobilinogen) Protein (test code = Protein) Negative pH (test code = pH) 6.5 Blood (test code = Blood) Negative Specific [place] (test code = 1.020 Specific [place]) Ketone (test code = Ketone) Negative Bilirubin (test code = Bilirubin) Negative Glucose (test code = Glucose) Negative Appearance (test code = Appearance) Clear Color (test code = Color) Yellow [facility] CountyUrinalysis macro (dipstick) panel - [id number] 13:53:54 Test Item Value Reference Range Interpretation Comments Leukocytes (test code = Leukocytes) Negative Nitrite (test code = Nitrite) positive Urobilinogen (test code = .2 Urobilinogen) Protein (test code = Protein) Negative pH (test code = pH) 6.5 Blood (test code = Blood) Negative Specific [place] (test code = 1.020 Specific [place]) Ketone (test code = Ketone) Negative Bilirubin (test code = Bilirubin) Negative Glucose (test code = Glucose) Negative Appearance (test code = Appearance) Clear Color (test code = Color) Yellow [facility] CountyTissue [id number] 12:49:00 Test Item Value Reference Range Interpretation Comments Case Report (test code Surgical Pathology = 104) Report Case: [id number] Authorizing Provider: Arnaldo Zelaya MD Collected: 01/09/2020 02:19 PM Ordering Location: [facility] Received: 01/09/2020 04:37 PM SERVICES Pathologist: Flavia Lazar MD Specimens: A) - Biopsy, Terminal Ileum, terminal ileum bx B) - Colon Biopsy, Random, random colonic bx DIAGNOSIS (test code = n3apiCNfPMYro4gpYUDxcP 3220) FuZzEwMzNcZnRuYmpcdWMx PVwzhzZsCUjcx7JoB6GdAv AwMFxhbnNpXGRlZmxhbmcx IYUzTWZ2mpLmQDGcZOaiSL NbKRjrWp8veXLjzRahOiPr BYAnc1xccnCLpofotYc5a3 qtGUBqFoS5uTEqMTvyF0xm mdOrnWKaSAXgEDl9sN34CE IjfU9yzOYrIKbzymXkScD3 JTtsGLGfRuD2KOOabGGtVT KrT2egRKEmBHpnWTAhAWow qRGyVGP2mFngn5N6wWKgyQ AftCtjMvWlFjUlLOONo2Qk HDz5vSacJ9PsDORbQyD5eQ QgUGFyYWdyYXBoIEZvbnQ7 hI70OUiikmX5oEYut0Sxm5 7ov838kV8nnCYiKMK1MFQl DXZurGGwDAFbONP6WWTwaY BxL3p5RxRqtFAvE6T1XlYu lDRrK6P8RwUtqRIiE8F7Mw NniWUfREZyrRNvBn4hvSNx nWUooa0nsi37TEO6m4GumJ foLEP0ZCY1OhWsXd2nxPUd IGXhLO2bGdUcwHAjDGDnln 00gFzeLIcuqkRmsO9bBgPb QHBzrIXwQQScJW3pdNMvPE NhtN4emxifROPrNgAkwhsg YCGasJteprPqJt1cyMqcMV V1OQetO9ayuI5lLfP4LEgv K4vxpU5xSIr1XPevkOL5QP MyqO4fCR7cwdwpx1viRcGi AA1oauiis8hnOuWiOU0zcs m8u2wmLsPaBR9fcbwvj1bn NzIwXGhlYWRlcnkwXGZvb3 EtzgfaSTAoj6OnN8XgfWpl Q98jqHtvC92kBNDyuYngpT 1utRtbvG4iYfUfYaFiBJxv bFxwbGFpblxmMVxmczIwXG ltxtonTFUdHUdgG9khMmIc DBZmqVmcJGzuq8JiDEXvSJ BjTrCqQN5jF55AQDguIv2I DTshYKYBRj3FDqRTNCtUOY YRHWZNIJ8YB0dKMuomzBKa PLMxZS3hP8jOF33VFkLGT2 BUSwWnFQoNHZQHO2gxOLUb rBBnKNRxKURDOV4AZJPHWG 9EI64fAkkDLCOKHYW0WEKm ciAgICAtIFJFQUNUSVZFIE IENI3EPVviJBApsSIxCD7x Oc9wdSlgHDE2y0rywFViQZ NzdGUxODAwMFxhbnNpXGRl TwcawlprLDNrKEJ2zjCuNT JvFUyvOSVwXRbvEz9ghCJp uYtqNbZuSAShn6gwcbZLzq qkyLq4l6aiWAOgFuA1hSRl QInpM6mpfgOnfEIqDVEbVL h3iM63SMAbrO2vwFFkYSkj faIyFfU5SBmlOZEsXoW1CU SumKLqBGQaK9igWGWcCLjr IWGuAAodxNZfFXL7bRopf4 D8zVPufQAodCabDlQpHeFj OeRVq8QdFBz1mWqvD6HvLV YxOyV3wVTsDZSpZEmkIVHl LAFpqpP7pE38CPaixlS0uU Obk3Vhq83kg759fH4zkGEd LGC0HNRdRZYjxODdCIGyNE W8TBQwqLChO1ekPSQkDJ6j yawsCYgjSZbkFQUcjVW4GK FueVHnP9PxYFKdDOozGRVu mgt5YoNjCt5ftMOukKahJP bwb7yal4ekrEMcBmc2ZTOw KiJxWujdZShjc5Oqb3ywXM Txxe3sCIG9xJWoyGplx1J8 pXNqNYKquJImYSAxUP4xhB QzJAJlcO0dlmmqNFOmRlBn nswzCTYvdCtaecGgXx5fyY eqKJE9UFdiK5mtoO2pVaN8 JKsqO7jqxL1zFWt5VMijGZ XltEC4uqU7IRFvuKRaI6La kY1yNBEfVM7lwln0o8bzZE I8HTjzOUJdTuE7mwH6BEFh sMKmPSKbmUubIZtmt010HI O3FdCjPRZhx0QlG7KurMvq B28fiBhjA44kVEGzfRmibW 7hvRotdA8oOySoWuNgULae oDfyOZ0gCAZxL4vfrISuNR BlXKTeK8lbQdWfwH0zhSyv PVvgvhEmIZSgIde4ZAGvwT AuBTZwRfy1KSCaLTZkE08a thbjGQC4qR4gg4gvv8KdEI ddTXP0QORas36uGYvaycL6 MUurSs7tHzIsEHF3ZAdlDB J9fQ== CPT Code(s) (test code d6jkaNGkHKPswFXrOqGuEE = 3357) MlNYDvq2qtCJWwxYRcCdGr MzNcZnRuYmpcdWMxXGRlZm Sot6mse281qVCyo0tfMYLl KoO6oJZqJXZmuSUxN952d0 bsw6aonmMpaEM7SQNrRXU0 BIlylfXkruY8GJxeeYUwZb R4HIcsnvNaNGnbxdUhzbKd Ftd5IPDkV997UNL8bAgkb5 qwUMY8EAYmLDLcOrFhGq6u wKZmM209SWAlTRYDDUQeaL n0ESYgvdCsbqFbuGPXx264 M955k7nbAJDrstSppOmRof whu6auU384SRWptNGmhuYk ZsTjPVRqpZGkjEQ4TFPsXN 6sozvhWcKtVY1hoceuDkMm UI1idfd8PpQsEG9exjgtVl RxYLyfSSVuucnqKUYvd6Ek lamiTJ4qH4Nlz2E1iC2arG ZcWGUbmLVfUwAkQTZfkv1l zFZsSUtwt4GmVFI8peO7uZ MvvOBeRUAtBK22Cbroy2Fj FjjkVOI8VKQgtrXlg5Enw6 jlEiZaopMpR6ahH0TkTAKf KRUuKKQpGeLtusAmo7Rjl1 HgbZLniJg3p2ozODEiHYMa cJdjn4ijZRT6EZYtZ4M2gH Yjg3kyDCjxHVNepNA3sext JNraMXDoepQ1pttmWUusDY UrmBF6ovxcMTbbIOZlCiT0 lxepJCqeFCEbOUS1EIxfd4 89VZA7MRvqKbomNLhwERUn bmNvbnRccGduZGVjXHBsYW luXHBsYWluXGYwXGZzMjRc yBxznOjamZ3uYgVyAwCcNF aqGF9iXIOfZ8wfrFYvKZRp MLVgY9suMsFsmP5lyUheTZ dhibOnKEy8AuA5KAQyyn1= CLINICAL HISTORY (test a0beqTKdYHCfyBYvLxMeXW code = 3356) AkRSJvf1qkHUCkpFOvSbEc MzNcZnRuYmpcdWMxXGRlZm Uwz1nul389kYGhn5huUMYb FeH4gEAaXLJdlQYaC725s8 zwu4gbenFnjVW1FYOdNYK3 CVkbbhDffqQ1JHiraEJfFj D0MRpyxlZgDKupvbOnaiCb Hze9HJUiM096UUU2gUphz0 zoGVP0FQHvECJqIzOgJg1v rVVoB278TIOrNABILLBuvG x9OFYcbeAkdgBvkBFSa770 L056c4bhWKBhhnMvsGxIrz hdh0wkU793KQFzxTHyukCi XeQrCTJluOQkkUJ9OXSqAW 1aysgzZlNwGP5qmclqGpZj NI4hgff5FqNoVC2xwhqzOn CwNNynYDHtjwnhCKIyd4Jj kemrII2bL4Wam5I7rR8boF QqMKHcbJXtCpEyVCKkht3x pJYhSTanp5UmMTM1ufI1sF JdxDMfCTLkGJ93Bxgqg0Hv KradBXI1VUWsjyTys8Kva9 ylTnUfirOsO5cfR5UuTETv YVNpSQYiKbUganOgi7Eyp1 KazXRcoSh9c0ntRREeGAMd qQmxb1giBMR4WHDcL9C9zQ Nzd6uvIMsjWRKgyNB4ewek BEynHEOmwyI4kpbqYTgcVU VemGU6lkckXVfqWOBjGbC7 eejrGSbjHPMiRLU4YAfmk7 57KNB7UPeaElzjBYskHKSw bmNvbnRccGduZGVjXHBsYW luXHBsYWluXGYwXGZzMjRc iDkvoGxgxJ6eGtNkYyDsJW pfTH7gJFCaP1xfkUXkHTGb PEPtZ9tyLnWzoL0puGnnCG jdbhPhFWVgNJ6dFSDuvQq8 FEGvogNbvL2zuM8sWDUopA q7EVMvpAAuuh5gZWD4NSDi c4ibQ1VeXWtgEATeHOWxOg Cvh4XkZVGoHRjdOVPiRULo NHNzRJPiyoJeg6KlsrJsBD oryYcssHTdZ24gmYlvK4H7 eS0qWbzdXVX3 SPECIMEN SOURCE (test i3ndpNGqFNSaxWJpAyRsYT code = 3377) BlTBDlb5qwGRUilLWeJgSo MzNcZnRuYmpcdWMxXGRlZm Xqy0fph863hAEqb9rpFHMy XgH1yIJvKPByaJJxH793e5 dcy2zmjvBuaEE0CDQrCAH7 MMfudpHhjxO9DKnejAEjGf Z7WOpkdrUeSVqoiwGoirCw Azz1SGQaL279SCL8rAjih8 lzAXN0AMJqUXTdPtFpHc9i iFSjQ439SRDjDELKLVLqbY s5DPQbjmUimtPjcRWCi128 F258z0hfZOXoyiQztVcEcr zyp8cyM321YFWtyDIpekFm HaZtQZDvbEFehQI8ODOgQA 9nxrjtKqUhPG1qrlmkMeWl IU9qisk9SqGdTT7tooqhJh SyKDksAGXeqbyoQLQic3Ga lkneVL3kO2Thc1J2yO8sdU BqKLTmrQBjJlAhCDFpey9i kMLjDYtem1LjMJD7tnL0sK SdbFKxYJVbNH66Rtkoi8Gg QfmiFCS6CSPdlsOxy8Zfk7 ueYsCymdZiS7znE1WgKOLb CBXfWZRlNxIvzvPxq4Pqt0 DhfDObbTr3n4xoXJKgBPBw kIxsv3fgQRQ6VNHcP9A4uW Twu9kvJJizIDHtuEP7iocy QFxlOYMvdpW9kljgDKfiCX CkzBB4bwjxJMxeGRRsHgD7 eqjtCKnxLDEhQEJ5CCvwr1 90LEE3KFmfIrxkUOslSAAn bmNvbnRccGduZGVjXHBsYW luXHBsYWluXGYwXGZzMjRc bLpkdZaujA5cNdXgJcHmJF ouSX3iXCDzP5pkrQCjOCJn PUYvU4ymAqNacC1yuFiwHH akbzSfNVEdAFPvga5sqfOn DSweIKLiMGNjf3ZodPPqrC PdSVZlUZYnnwWpmJCts2am cmztPRKrt2BgfHLdwMUumN == GROSS DESCRIPTION (test c4eqqZSqDVZjgKJjDqMsDH code = 3366) TbHIAib6myZMWmgXCmMxIl MzNcZnRuYmpcdWMxXGRlZm Tfp4ada590eGPpg1vfYORp SgY9lYOwQJJtsQBfY226OK IhZEyhd8oup3HoQYPbcBYb m0E0KEJPzjhvrQy3pLvcV8 2ba4L8YnxuT6wkHQIbSFFz A6XxJJ4rVXAsHul1HTP7VG J7IAGrDFBqQ2ByFY5qQZXj lLSaZAe3i7vugOvmNLKyAC R4o7ecUDmzvpJxKR0thm0j wCz5t0dmuoOjOXRbOEZziQ JWTBSaQ3EilOblMm8lyWu7 tLgnVjleFBB1Jlw8WX7hom 61vpm9qZnjKXGodcolNiE5 GWabHUAhrspwMOb1ERbxWP JnbDcyMFxtYXJncjcyMFxt YXJndDcyMFxtYXJnYjcyMF muBIVkPLB9RElne349PJZ8 SWnox5upa7oziJQzKnz1TN XwXmKvPntnPAuqc7Arz9kn RQSpdg6eYJL4aTGtqWjma8 N1hLZzMZFqcXAcuvAiKXQk LmG9FBixKY2get82JJSwZD T9cn8psHPmzCddsxNrpOVr KEzwR6QfGMWht374MNRuR2 DoUDXpl4Z3gdRrUyUkPPVi lVJ6gjG1ZHDjFGi0dQKpgf F2cfLuyKYkF4syaY88IyLc eQDzT4PrxL98NpTwzGDpL2 IstJ86RnTokZUvU9UxqJ53 ZzTmnAVcMOVreGGiTd5iuU DoyAZby6WavVIvMCqxG65n e792XCFtynKiR8nnrSEfpm kibWIpkwbmBXrgrjL1VGl7 cnBhclxxbFxwbGFpblxmMF xmczIwXGxhbmcxMDMzXGhp F4kvWaMeSKOllVibSQbxv6 NoXGYwXGZzMjAgUGFydCBB WJTuH3DqbkZuAGfnRZCkpx 3nxWqdKHvjWrBjXVRco6k9 oZE0iHYvyVV7mYWevEafGV 8xpETkNF7iIWkuXYxdqeSi w4JqIA39nPEjpyApzhMfZi Hlc3DgsOyvuSLbrCesSQlg xZxfhE5dLGKeEIP2kYYxYZ ZycCDdBGXen8GbxEHrPWtf dDXcTNYrLcPswIamm6TqPW LphqinrkjgsK7tw9v7QWHv mw7eNILxPHC0FMZwIZU0BQ LaPCDvjXG5cbDyXrQwpYLu TiTezHPkJsBhN94lBBBeYD QhvLBmmB9hduFnznZczUZy wQE4AIPqhF8mgP66wmHhse HgNFFuQAX6JARPJZ6iaEKi XHBhclxwbGFpblxmMVxmcz DhVJwpqaaqBRWrRGrbE0le FaEpNWBotEtdPIxpi7BvCI YxXGZzMjAgUGFydCBCIHJl W5OrqzDdHKyeRSYlyf1qwW rwKFqfIiXmJIChf8r1oSE6 gTGmeNV1hKZtbGutZA7ljR ZaCQ3xNJwlLHqbkyBvn2Lv WO36gEYjwdJiatVnEsFypZ 6jWAOmu8WmaGycxgOeQJ5y EaZxtxLmHke2NSNhnZGaRS Sxf2OmaKBmCPKqhiacw00h rAR2tMRelQTdtwHkD8xhDe BmhbEqvWmhBYZrs56pVI0u YUvpKJ1vRHktHR4uGNBsEM PfIVAgBVV3LBJqRdT7IIEn IhGphL5rXWmuHPVoRNFrtY WeRTrlZDX9Ln6ugSJlMEMr crQ4z1SrAIhqIQUmn9GcrS DsWXWrDgMCLG6bb7oyTHL4 MICROSCOPIC DESCRIPTION z0pzdTNeVDFkiHXmTkNaGV (test code = 3371) SmPMRpc1qbHOIcgAUxUhVk MzNcZnRuYmpcdWMxXGRlZm Hna6ayz856dDCsk7gyWAGi SzI5qHXeLCUpiPBcK471DM XpOEofx1oac4PfKCGagOHr p9Z9NTGKrnnncTt3bMjrB7 1rd8L7BnyrU4kdPCPxKACq B7EkJK1hALGmAdq3GLA4YX Q7QJVuCVHwC9XtCZ2wQZGw wIJaWYa4j2oarIttWZVbON O3n8jkCWlrcmVuBH4wik9i lRw4i5ucwrTiNKQfPOTgaA KTNGKxM1EyhGlnIx3dsZi7 eIioGsqvZZE3Mvf2FX9ooa 77uoj5uHzjXMMnmazxAfN9 ANeyLWGscdcsLRf2PZhkEF JnbDcyMFxtYXJncjcyMFxt YXJndDcyMFxtYXJnYjcyMF beRFUbXLW8FCozx217YYS7 PVgen4brl0mjyTYoCix1GH UrTtPbWaxlCHddx2Gil8xs EIYkdv4aDJK0gTRwzSdxh8 Y6hITdOBMgkOGdhcEgJQWh JfS6JEyiME1xab58IPCcPZ O5pk4mzOTvcGeugfNyrZCx GVfkQ5RtLVZxt722HIPgO5 QhIDLnk0D1ohBhLoMqRWBt fAD7mtC5RZAzZVk6jEDkdi U7yqMihDYkL2wjhE52SqCl uAAnE5PcmY45UtQdkMDdC2 PwfC06FbJfnCYsI7UyyN39 PnJcpWYtUEXpmJYyFz0qgL IuxHHrz7VxaMPeBPbzC13b k499CDBetoReD7yjaZYquz ygyLUxrcurGQacndO7DMSf XHBsYWluXGYxXGZzMjBcbG FuZzEwMzNcaGljaFxmMVxk ZrNuRRAjSCkdV7rlUfPcMh NeFQOBIxABUPLeqK5icFRp oCHunTKtzHKnk3BuwOVjej ZnF6SrmmEur4d1bMAtxhIo ZWFzZWQgUGFuZXRoIGNlbG ysTUGwLOJhMWX9vm2ypOhw uYNzwR8faSj0dtC0xG4jBX 1jYQaxUW7phv1uJg9hN21C OLJybQMmaQFxfCGdz7YtB3 TqQ4uni93wLTufIIEsBW1a ZYPnqyuvXYZkXh6mUg1cXD kphN5fpSleoyKrYzMtrvCf pJEsM6F8sdRxNMPkmMX4nR XxgoeoP0W9dBZqAVNuA7Gl ckkhgKzyyj8qW64icQRyX6 4fbNBrvqrkPZtvsDcqv3fy KG7yHE4hbQyrfzKiP4mliW Ncj8Zbjp0jXBMoao2= [facility] [id number] 12:49:00Surgical Pathology Report Case: [id number] Authorizing Provider: Arnaldo Zelaya MD Collected: 01/09/2020 02:19 PM [facility] Received: 01/09/2020 04:37 PM SERVICES Pathologist: Flavia Stuart MD Specimens: A) - Biopsy, Terminal Ileum, terminal ileum bx B) -Colon Biopsy, Random, random colonic bx A. SMALL BOWEL, TERMINAL ILEUM, BIOPSIES: - CHRONIC ACTIVE ILEITISB. COLON, RANDOM BIOPSIES: - REACTIVE CHANGENZK/pl Signing Pathologist Direct Phone Line: [phone] signed by Flavia Stuart MD on 01/13/2020 at 12:49 [id number] and postoperative diagnoses: Crohn's disease of both small and large intestines without complication.A. Terminal ileum biopsy B. Random colonic biopsy Part A received in formalin labeled with the patient's name, medical record number and "biopsy, terminal ileum" are three pieces of rodriguez-white soft tissue ranging in size from 0.1 x 0.1 x 0.1 cm to 0.4 x 0.3 x 0.2 cm. The specimen is submitted in toto in cassette A1.Part B received in formalin labeled with the patient's name, medical record number and "colon biopsy, random" are five pieces of rodriguez-pink soft t issue ranging in size from 0.2 x 0.2 x 0.1 cm to 0.4 x 0.3 x 0.2 cm. The specimen is submitted in toto in cassette B1. AA/Bia. Terminal ileal mucosa is reactive with increased Paneth cells and neutrophilic infiltration of glands. No CMV, dysplasia or carcinoma is seen.B. No distortion of architecture,cryptitis, crypt abscess, microscopic colitis, dysplasia or malignancy is seen.[facility] [id number] 01:29:00 Test Item Value Reference Range Interpretation Comments [facility] blood collection sent to [facility] (test code = [facility] blood collection) [facility] - [id number] 15:18:00 Test Item Value Reference Range Interpretation Comments Leukocytes (test code = Negative Leukocytes) Nitrite (test code = Nitrite) negative Urobilinogen (test code = 1 Urobilinogen) Protein (test code = Protein) Trace pH (test code = pH) 6.0 Blood (test code = Blood) Negative Specific [place] (test code = 1.030 Specific [place]) Ketone (test code = Ketone) Negative Bilirubin (test code = Bilirubin) Small Glucose (test code = Glucose) Negative Appearance (test code = Clear Appearance) Color (test code = Color) Dark Yellow [facility]dipstick[facility] panel - [id number] 15:18:00 Test Item Value Reference Range Interpretation Comments Leukocytes (test code = Negative Leukocytes) Nitrite (test code = Nitrite) negative Urobilinogen (test code = 1 Urobilinogen) Protein (test code = Protein) Trace pH (test code = pH) 6.0 Blood (test code = Blood) Negative Specific [place] (test code = 1.030 Specific [place]) Ketone (test code = Ketone) Negative Bilirubin (test code = Bilirubin) Small Glucose (test code = Glucose) Negative Appearance (test code = Clear Appearance) Color (test code = Color) Dark Yellow [facility] - Serum or Plasma [...] Serum or Plasma (test code = 6768-6) [facility] - Serum or Plasma [...] Serum or Plasma (test code = 6768-6) [facility] blood [id number] 10:15:00 Test Item Value Reference Range Interpretation Comments [facility] ([facility] = [facility]) [facility] blood [id number] 10:15:00 Test Item Value Reference Range Interpretation Comments [facility] ([facility] = [facility]) [facility]dipstick) panel - [id number] 14:31:00 Test Item Value Reference Range Interpretation Comments Leukocytes (test code = Leukocytes) Negative Nitrite (test code = Nitrite) negative Urobilinogen (test code = .2 Urobilinogen) Protein (test code = Protein) Negative pH (test code = pH) 6.5 Blood (test code = Blood) Negative Specific [place] (test code = 1.025 Specific [place]) Ketone (test code = Ketone) Negative Bilirubin (test code = Bilirubin) Negative Glucose (test code = Glucose) Negative Appearance (test code = Appearance) Cloudy Color (test code = Color) Yellow [facility]dipstick[facility] panel - [id number] 14:31:00 Test Item Value Reference Range Interpretation Comments Leukocytes (test code = Leukocytes) Negative Nitrite (test code = Nitrite) negative Urobilinogen (test code = .2 Urobilinogen) Protein (test code = Protein) Negative pH (test code = pH) 6.5 Blood (test code = Blood) Negative Specific [place] (test code = 1.025 Specific [place]) Ketone (test code = Ketone) Negative Bilirubin (test code = Bilirubin) Negative Glucose (test code = Glucose) Negative Appearance (test code = Appearance) Cloudy Color (test code = Color) Yellow [facility]CT, [id number] 10:26:00ENTEROGRAPHYFINAL REPORT CT of the abdomen and [...] [place] Verified Date/Time: 06/19/2019 10:26:36 Reading Location: [facility] B1 [id number] [facility] Consult Reading Room [employer] [id number] 10:45:00 Test Item Value Reference Range Interpretation Comments quest collection (test code = [facility] collection) [facility] sp DNA [Presence] in Vaginal fluid by Probe and target amplification [id number] 00:00:00 Test Item Value Reference Range Interpretation [...] code = ye glabrata by real-time PCR) [facility] (dipstick) panel - [id number] 13:42:54 Test Item Value Reference Range Interpretation Comments Leukocytes (test code = Leukocytes) Negative Nitrite (test code = Nitrite) negative Urobilinogen (test code = .2 Urobilinogen) Protein (test code = Protein) Negative pH (test code = pH) 7.0 Blood (test code = Blood) Negative Specific [place] (test code = 1.015 Specific [place]) Ketone (test code = Ketone) Trace Bilirubin (test code = Bilirubin) Small Glucose (test code = Glucose) Negative Appearance (test code = Appearance) Clear Color (test code = Color) Yellow [facility] (dipstick) panel - [id number] 13:42:54 Test Item Value Reference Range Interpretation Comments Leukocytes (test code = Leukocytes) Negative Nitrite (test code = Nitrite) negative Urobilinogen (test code = .2 Urobilinogen) Protein (test code = Protein) Negative pH (test code = pH) 7.0 Blood (test code = Blood) Negative Specific [place] (test code = 1.015 Specific [place]) Ketone (test code = Ketone) Trace Bilirubin (test code = Bilirubin) Small Glucose (test code = Glucose) Negative Appearance (test code = Appearance) Clear Color (test code = Color) Yellow [facility] (dipstick) panel - [id number] 10:18:17 Test Item Value Reference Range Interpretation Comments Leukocytes (test code = Leukocytes) Negative Nitrite (test code = Nitrite) negative Urobilinogen (test code = .2 Urobilinogen) Protein (test code = Protein) Negative pH (test code = pH) 6.5 Blood (test code = Blood) Negative Specific [place] (test code = 1.010 Specific [place]) Ketone (test code = Ketone) Negative Bilirubin (test code = Bilirubin) Negative Glucose (test code = Glucose) Negative Appearance (test code = Appearance) Clear Color (test code = Color) Yellow [employer] [facility] (dipstick) panel - [id number] 10:18:17 Test Item Value Reference Range Interpretation Comments Leukocytes (test code = Leukocytes) Negative Nitrite (test code = Nitrite) negative Urobilinogen (test code = .2 Urobilinogen) Protein (test code = Protein) Negative pH (test code = pH) 6.5 Blood (test code = Blood) Negative Specific [place] (test code = 1.010 Specific [place]) Ketone (test code = Ketone) Negative Bilirubin (test code = Bilirubin) Negative Glucose (test code = Glucose) Negative Appearance (test code = Appearance) Clear Color (test code = Color) Yellow [facility] panel - [id number] 10:18:17 Test Item Value Reference Range Interpretation Comments Leukocytes (test code = Leukocytes) Negative Nitrite (test code = Nitrite) negative Urobilinogen (test code = .2 Urobilinogen) Protein (test code = Protein) Negative pH (test code = pH) 6.5 Blood (test code = Blood) Negative Specific [place] (test code = 1.010 Specific [place]) Ketone (test code = Ketone) Negative Bilirubin (test code = Bilirubin) Negative Glucose (test code = Glucose) Negative Appearance (test code = Appearance) Clear Color (test code = Color) Yellow [facility] (dipstick) panel - [id number] 10:04:32 Test Item Value Reference Range Interpretation Comments Leukocytes (test code = Leukocytes) Negative Nitrite (test code = Nitrite) negative Urobilinogen (test code = .2 Urobilinogen) Protein (test code = Protein) Negative pH (test code = pH) 6.5 Blood (test code = Blood) Negative Specific [place] (test code = 1.010 Specific [place]) Ketone (test code = Ketone) Negative Bilirubin (test code = Bilirubin) Negative Glucose (test code = Glucose) Negative Appearance (test code = Appearance) Clear Color (test code = Color) Yellow [facility] (dipstick) panel - [id number] 10:04:32 Test Item Value Reference Range Interpretation Comments Leukocytes (test code = Leukocytes) Negative Nitrite (test code = Nitrite) negative Urobilinogen (test code = .2 Urobilinogen) Protein (test code = Protein) Negative pH (test code = pH) 6.5 Blood (test code = Blood) Negative Specific [place] (test code = 1.010 Specific [place]) Ketone (test code = Ketone) Negative Bilirubin (test code = Bilirubin) Negative Glucose (test code = Glucose) Negative Appearance (test code = Appearance) Clear Color (test code = Color) Yellow [facility] (dipstick) panel - [id number] 10:04:32 Test Item Value Reference Range Interpretation Comments Leukocytes (test code = Leukocytes) Negative Nitrite (test code = Nitrite) negative Urobilinogen (test code = .2 Urobilinogen) Protein (test code = Protein) Negative pH (test code = pH) 6.5 Blood (test code = Blood) Negative Specific [place] (test code = 1.010 Specific [place]) Ketone (test code = Ketone) Negative Bilirubin (test code = Bilirubin) Negative Glucose (test code = Glucose) Negative Appearance (test code = Appearance) Clear Color (test code = Color) Yellow [facility] identified in Urine by [id number] 00:00:00[facility], [id number] 00:00:00 Test Item Value Reference Range Interpretation [...] Minimum inhibitory concentration (VIVIENNE) (test code = 19620-6) Piperacillin+Tazobactam <16 [Susceptibility] by Minimum inhibitory concentration [...] <2 inhibitory concentration (VIVIENNE) (test code = 26967-9) Aztreonam [Susceptibility] by Minimum <8 inhibitory concentration (VIVIENNE) (test code = 44-8) Cefuroxime [Susceptibility] by Minimum <4 inhibitory concentration (VIVIENNE) (test code = 25799-2) Meropenem [Susceptibility] by Minimum <4 inhibitory concentration (VIVIENNE) (test code = 6652-2) [facility] Urine by [id number] 00:00:00Bacteria [facility], [id number] 00:00:00 Test Item Value Reference Range Interpretation [...] Tobramycin [Susceptibility] by Minimum <4 inhibitory concentration (VIVEINNE) (test code = 508-2) Nitrofurantoin [Susceptibility] by <32 Minimum inhibitory concentration (VIVIENNE) (test code = 363-2) Cefotaxime [Susceptibility] by Minimum <2 inhibitory concentration (VIVIENNE) (test code = 108-1) Cefepime [Susceptibility] by Minimum <8 inhibitory concentration (VIVIENNE) (test code = 6644-9) Levofloxacin [Susceptibility] by >4 Minimum inhibitory concentration (VIVIENNE) (test code = 73801-4) Piperacillin+Tazobactam <16 [Susceptibility] by Minimum inhibitory concentration [...] <2 inhibitory concentration (VIVIENNE) (test code = 54935-2) Aztreonam [Susceptibility] by Minimum <8 inhibitory concentration (VIVIENNE) (test code = 44-8) Cefuroxime [Susceptibility] by Minimum <4 inhibitory concentration (VIVIENNE) (test code = 25937-3) Meropenem [Susceptibility] by Minimum <4 inhibitory concentration (VIVIENNE) (test code = 6652-2) [facility] GroupMicroscopic observation [Identifier] in Cervix by Cyto stain.thin [id number] 00:00:00 Test Item Value Reference Range Interpretation Comments Human papilloma virus positive 16+18+31+33+35+39+45+51+52+56+58+59+ 68 DNA [Presence] in Cervix by Probe and signal amplification method (test code = 44076-0) results (test code = results) [facility] GroupBacteria identified in Urine by [id number] 02:14:00 Test Item Value Reference Range Interpretation Comments Bacteria identified in no growth at 48 hrs. Urine by Culture (test code = 630-4) [facility] GroupBacteria identified in Urine by [id number] 02:14:00 Test Item Value Reference Range Interpretation Comments Bacteria identified in no growth at 48 hrs. Urine by Culture (test code = 630-4) [facility] [id number] 08:01:00 Test Item Value Reference Range Interpretation Comments MAGNESIUM (BEAKER) 1.8 mg/dL 1.6-2.6 Specimen moderately (test code = 627) hemolyzed BASIC METABOLIC [id number] 08:01:00 Test Item Value Reference Range Interpretation [...] PATIEN TS. CBC W/PLT COUNT & AUTO [id number] 05:59:00 Test Item Value Reference Range Interpretation [...] 0-1 PERCENT (BEAKER) (test code = 2801) [id number] 07:04:00 Test Item Value Reference Range Interpretation Comments MAGNESIUM (BEAKER) (test code = 1.8 mg/dL 1.6-2.6 627) BASIC METABOLIC [id number] 07:04:00 Test Item Value Reference Range Interpretation [...] NOT APPLICABLE FOR DIALYSIS PATIEN TS. CORTISOL,60 [id number] 07:01:00 Test Item Value Reference Range Interpretation [...] after cosyntropin administration.CBC W/PLT COUNT & AUTO [id number] 05:46:00 Test Item Value Reference Range Interpretation [...] 0-1 PERCENT (BEAKER) (test code = 2801) CORTISOL,[id number] 19:10:00 Test Item Value Reference Range Interpretation [...] a study by Padilla et al (MIGUEL 2000,283(8):4717-45), the ACTH Stimulation Test provides important prognostic [...] = 1.8 mg/dL 1.6-2.6 627) BASIC METABOLIC [id number] 14:23:00 Test Item Value Reference Range Interpretation [...] 697) EGFR (BEAKER) (test 75 mL/min/1.73 ESTIMA GURVINDER GFR IS code = 1092) sq m NOT ACCURATE CREATININE CLEARANCE IN PREDICTING GLOMERULAR FILTRATION RATE . ESTIMATED GFR I S NOT APPLICABLE FOR DIALYSIS PATIEN TS. CBC W/PLT COUNT & AUTO [id number] 14:01:00 Test Item Value Reference Range Interpretation [...] (test code = 2801) OVA AND PARASITE [id number] 12:03:00 Test Item Value Reference Range Interpretation [...] (BEAKER) (test seen seen code = 248) [id number] 05:30:00 Test Item Value Reference Range Interpretation Comments MAGNESIUM (BEAKER) (test code = 1.9 mg/dL 1.6-2.6 627) BASIC METABOLIC [id number] 05:30:00 Test Item Value Reference Range Interpretation [...] PATIEN TS. CBC W/PLT COUNT & AUTO [id number] 04:58:00 Test Item Value Reference Range Interpretation [...] PERCENT (BEAKER) (test code = 2801) TISSUE [id number] 15:51:00Surgical Pathology Report Case: [id number] Authorizing Provider: Bartolo Quinn Collected: 11/10/2018 1543 Ordering Location: [address] Received: 11/12/2018 0813 Service Pathologist: Linda [...] CRYPT DISTORTION Signing Pathologist Direct Phone Line: [phone] signed by Linda Mullen MD on 11/12/2018 at 3:51 PMPatient's history of Crohn's disease is noted. The current sampling shows no significant active or chronic colitis. This may represent complete histologic resolution following treatment. Clinical and endoscopic correlation is recommended.[id number] and postop diagnosis: diarrhea A. Neoterminal ileum [...] in E1. CG/pl Performed.STOOL CULTURE + SHIGA [id number] 08:26:00 Test Item Value Reference Range Interpretation Comments CULTURE (BEAKER) No Salmonella, Shigella (test code = 1095) or Campylobacter isolated GI PATHOGEN PROFILE BY [id number] 08:20:00 Test Item Value Reference Range Interpretation [...] (test Not detected Not detected code = 3570084) ROTAVIRUS A (PCR) (test code = Not detected Not detected 20160105) SAPOVIRUS (I, II, IV, V) BY PCR Not detected Not detected (test code = 0678629) VIBRIO (PARAHAEMOLYTICUS, Not detected Not detected VULNIFICUS) (test code = 0238779) Other viruses, parasites and bacteria not targeted [...] [facility] using the [employer] Gastrointestinal Panel. It is FDA cleared and has been verified and approved by the [facility] for clinical use. This laboratory is CLIA-certified and College ofAmerican Pathologists (CAP)-accredited to perform high complexity testing.CORTISOL 2018-11-09 06:24:00 Test Item Value Reference Range Interpretation Comments CORTISOL, TOTAL (BEAKER) (test code = < ug/dL 3.7-19.4 L 1430) BASIC METABOLIC [id number] 05:50:00 Test Item Value Reference Range Interpretation [...] APPLICABLE FOR DIALYSIS PATIEN TS. SHIGA TOXIN [id number] 14:16:00 Test Item Value Reference Range Interpretation Comments SHIGA TOXIN 1 (BEAKER) (test Not detected Not detected code = 2177) SHIGA TOXIN 2 (BEAKER) (test Not detected Not detected code = 2179) STOOL PATH [id number] 10:08:00 Test Item Value Reference Range Interpretation Comments PATHOGEN EXAM CHARGED (BEAKER) (test Done code = 2381) TSH/FREE T4 IF [id number] 05:59:00 Test Item Value Reference Range Interpretation Comments THYROID STIMULATING HORMONE 2.84 uIU/mL 0.35-4.94 (BEAKER) (test code = 772) BASIC METABOLIC [id number] 05:38:00 Test Item Value Reference Range Interpretation [...] DIALYSIS PATIEN TS. RAD, ABDOMEN/KUB, 1 VIEW [id number] 14:37:00Reason for exam:->post-obstructive diarrheaShould this be performed [...] MDReport Verified Date/Time: 11/07/2018 14:37:57 Reading Location: [facility] C013W Consult Reading Room CT, [id number] 14:25:00FINAL REPORT TECHNIQUE: CT of the abdomen [...] be obtained for definitive characterization. Signed: Cj Loweryeport Verified Date/Time: 11/07/2018 14:25:25 Reading Location: [facility] B1 C013Y CT Body Reading Room CBC W/PLT COUNT & AUTO [id number] 13:14:00 Test Item Value Reference Range Interpretation [...] comment: User comments: Slide comments:C. DIFFICILE GDH [id number] 12:53:00 Test Item Value Reference Range Interpretation Comments CDT TOXIN (test code Negative Negative = [id number]) CDT GDH ANTIGEN (test Negative Negative No ind ication of code = 5881556804) Clostridi um difficile infection and n o colonization. Discontinue ent kaveh isolation and t herapy. Testing performed by Vivogig Rapid Cassette Assay. For GDH, published sensitivity of the assay is 98.7% compared to cytotoxicity testing. For Toxin AB, published sensitivity is 87.8% and specificity 99.4% compared to cytotoxicity testing.Verification of kit performance was done by the [facility] Microbiology Lab prior to clinical use.C-REACTIVE [id number] 06:53:00 Test Item Value Reference Range Interpretation Comments C-REACTIVE PROTEIN (BEAKER) (test 0.37 mg/dL 0.00-0.50 code = 676) BASIC METABOLIC [id number] 06:41:00 Test Item Value Reference Range Interpretation [...] NOT APPLICABLE FOR DIALYSIS PATIEN TS. CT, [id number] 09:48:00FINAL REPORT CT Abdomen And Pelvis with [...] Yany Henriquez MDReport Verified Date/Time: 09/20/2018 09:48:51 [facility], BONE DENSITY [id number] 13:22:00Reason for Exam:- >crohn's disease of both [...] for bone mineral density as provided by network systems engineer is 0.023 g/cm2 for lumbar spine and [...] Art Bermeo MDReport Verified Date/Time: 09/04/2018 13:22:29 [id number] 07:02:00 Test Item Value Reference Range Interpretation Comments PHOSPHORUS (BEAKER) (test code = 2.9 mg/dL 2.3-4.7 604) [id number] 07:02:00 Test Item Value Reference Range Interpretation Comments MAGNESIUM (BEAKER) (test code = 1.9 mg/dL 1.6-2.6 627) BASIC METABOLIC [id number] 07:02:00 Test Item Value Reference Range Interpretation [...] 0-0 (BEAKER) (test code = 413) TISSUE [id number] 13:47:00Surgical Pathology Report Case: [id number] Authorizing Provider: Jani Sanchez MD Collected: 08/20/2018 1003 Ordering Location: [facility] PERIOPERATIVE Received: 08/20/2018 1118 SERVICES Pathologist: Linda Mullen MD Specimen: Large Intestine, Colon - Right/Ascending, RIGHT COLON AND SMALL BOWEL A. COLON, RIGHT/ASCENDING, RIGHT HEMICOLECTOMY: - CHRONIC ACTIVE ENTERITIS COMPATIBLE WITH CROHN'S DISEASE (SEE COMMENT) - NEGATIVE FOR GRANULOMAS (OR) VIRAL CYTOPATHIC CHANGES - NEGATIVE FOR DYSPLASIA (OR) MALIGNANCY - MARGINS, UNREMARKABLE Signing Pathologist Direct Phone Line: [phone] signed by Linda Mullen MD on 08/22/2018 at 1:47 [facility] patient's history of Crohn's disease s/p ileocecal [...] cytopathic changes are seen.IDC: Dr. Leslie Carballo concurs.13463Dsuea's disease of small intestine without complication Right [...] folding and no masses or lesions identified. Software Firmware Engineer sections are submitted in 10 cassettes as follows.Ink code: Blue-one marginBlack-margin closest to anastomotic siteSection code: A1 - account manager sales representative sections of both margins, differentially inked per the ink code A2-A5 - entire sections of ulcerative areaA6 - entire sections of hemorrhagic mucosal areaA7-A10 - account manager sales representative sections of mucosaFR/ewPerformed.[id number] 06:10:00 Test Item Value Reference Range Interpretation Comments PHOSPHORUS (BEAKER) (test code = 2.3 mg/dL 2.3-4.7 604) [id number] 06:10:00 Test Item Value Reference Range Interpretation Comments MAGNESIUM (BEAKER) (test code = 1.7 mg/dL 1.6-2.6 627) BASIC METABOLIC [id number] 06:10:00 Test Item Value Reference Range Interpretation [...] WBC 0-0 (BEAKER) (test code = 413) [id number] 03:34:00 Test Item Value Reference Range Interpretation Comments PHOSPHORUS (BEAKER) (test code = 2.5 mg/dL 2.3-4.7 604) [id number] 03:34:00 Test Item Value Reference Range Interpretation Comments MAGNESIUM (BEAKER) (test code = 1.9 mg/dL 1.6-2.6 627) BASIC METABOLIC [id number] 03:34:00 Test Item Value Reference Range Interpretation [...] 36.3 % 34.1-44.9 411) MEAN CORPUSCULAR VOLUME ([facility]) 99.5 fL 79.4-94.8 H (test code = 753) MEAN CORPUSCULAR HEMOGLOBIN 31.2 pg 25.6-32.2 ([facility]) (test code = 751) MEAN CORPUSCULAR HEMOGLOBIN CONC 31.4 GM/DL 32.2-35.5 L ([facility]) (test code = 752) RED CELL DISTRIBUTION WIDTH 14.9 % 11.7-14.4 H ([facility]) (test code = 412) PLATELET COUNT ([facility]) (test 204 K/CU MM 150-450 code = 756) MEAN PLATELET VOLUME ([facility]) 8.5 fL 9.4-12.3 L (test code = 754) NUCLEATED RED BLOOD CELLS 0 /100 WBC 0-0 ([facility]) (test code = 413) POCT-GLUCOSE [id number] 11:42:00 Test Item Value Reference Range Interpretation Comments POC-GLUCOSE METER 129 mg/dL 70-[address] [facility] 67 ([facility]) (test code = RYNE Barnes [facility] 1538) [address] POCT-GLUCOSE [id number] 06:28:00 Test Item Value Reference Range Interpretation Comments POC-GLUCOSE METER 102 mg/dL 70-110 TESTED AT [place] [address] ([facility]) (test code = RYNE Barnes [facility] 1538) [address] CT, [id number] 15:41:00FINAL REPORT CT abdomen and pelvis with [...] MDReport Verified Date/Time: 08/17/2018 15:41:17 Reading Location: [facility] Diagnostic Imaging Reading Room - [place] [address] STOOL CULTURE + SHIGA [id number] 15:37:00 Test Item Value Reference Range Interpretation Comments CULTURE (BEAKER) No Salmonella, Shigella (test code = 1095) or Campylobacter isolated POCT-GLUCOSE [id number] 08:25:00 Test Item Value Reference Range Interpretation Comments POC-GLUCOSE METER 197 mg/dL 70-[address] [facility] 6720 (BEAKER) (test code = [facility] 1538) [address] [id number] 05:59:00 Test Item Value Reference Range Interpretation Comments PHOSPHORUS (BEAKER) (test code = 3.6 mg/dL 2.3-4.7 604) [id number] 05:59:00 Test Item Value Reference Range Interpretation Comments MAGNESIUM (BEAKER) (test code = 2.3 mg/dL 1.6-2.6 627) BASIC METABOLIC [id number] 05:59:00 Test Item Value Reference Range Interpretation [...] APPLICABLE FOR DIALYSIS PATIEN TS. HEPATIC FUNCTION [id number] 05:59:00 Test Item Value Reference Range Interpretation [...] code = 41 U/L 6-55 347) POCT-GLUCOSE [id number] 21:05:00 Test Item Value Reference Range Interpretation Comments POC-GLUCOSE METER 148 mg/dL 70-[address] [facility] 6720 (BEAKER) (test code = [place] 1538) [address] C. DIFFICILE GDH [id number] 15:59:00 Test Item Value Reference Range Interpretation Comments CDT TOXIN (test code Negative Negative = [id number]) CDT GDH ANTIGEN (test Negative Negative No ind ication of code = 4682383739) Clostridi um difficile infection and n o colonization. Discontinue ent kaveh isolation and t herapy. Testing performed by Vivogig Rapid Cassette Assay. For GDH, published sensitivity of the assay is 98.7% compared to cytotoxicity testing. For Toxin AB, published sensitivity is 87.8% and specificity 99.4% compared to cytotoxicity testing.Verification of kit performance was done by the [facility] Microbiology Lab prior to clinical use.SHIGA TOXIN [id number] 14:22:00 Test Item Value Reference Range Interpretation Comments SHIGA TOXIN 1 (BEAKER) (test Not detected Not detected code = 2177) SHIGA TOXIN 2 (BEAKER) (test Not detected Not detected code = 2179) POCT-GLUCOSE [id number] 13:13:00 Test Item Value Reference Range Interpretation Comments POC-GLUCOSE METER 119 mg/dL 70-[address] [facility] 67 ([facility]) (test code = [place] 1538) [address] STOOL PATH [id number] 10:03:00 Test Item Value Reference Range Interpretation Comments PATHOGEN EXAM CHARGED ([facility]) (test Done code = 2381) POCT-GLUCOSE [id number] 09:13:00 Test Item Value Reference Range Interpretation Comments POC-GLUCOSE METER 111 mg/dL 70-110 H TESTED AT [place] [address] ([facility]) (test code = RY[place] 1538) [address] [id number] 06:09:00 Test Item Value Reference Range Interpretation Comments PREALBUMIN ([facility]) (test code = 36 mg/dL 14-45 586) CBC W/PLT COUNT & AUTO [id number] 06:02:00 Test Item Value Reference Range Interpretation [...] 0-1 PERCENT (BEAKER) (test code = 2801) [id number] 05:52:00 Test Item Value Reference Range Interpretation Comments PHOSPHORUS (BEAKER) (test code = 4.0 mg/dL 2.3-4.7 604) [id number] 05:52:00 Test Item Value Reference Range Interpretation Comments MAGNESIUM (BEAKER) (test code = 2.3 mg/dL 1.6-2.6 627) BASIC METABOLIC [id number] 05:52:00 Test Item Value Reference Range Interpretation [...] APPLICABLE FOR DIALYSIS PATIEN TS. HEPATIC FUNCTION [id number] 05:52:00 Test Item Value Reference Range Interpretation [...] code = 29 U/L 6-55 347) C-REACTIVE [id number] 05:52:00 Test Item Value Reference Range Interpretation Comments C-REACTIVE PROTEIN (BEAKER) (test 0.22 mg/dL 0.00-0.50 code = 676) POCT-GLUCOSE [id number] 23:39:00 Test Item Value Reference Range Interpretation Comments POC-GLUCOSE METER 122 mg/dL 70-[address] [facility] 6720 (BEAKER) (test code = RYNE Barnes [place] 1538) [address] CT, [id number] 04:05:00FINAL REPORT CLINICAL HISTORY: Acute abdominal pain, [...] described findings of colitis. Signed: Denis Sow MDRamy Verified Date/Time: 07/21/2018 04:05:05 Reading Location: [address] Reading Room [id number] 22:00:00 Test Item Value Reference Range Interpretation Comments LIPASE (BEAKER) (test code = 749) 12 U/L 8-78 COMPREHENSIVE METABOLIC [id number] 22:00:00 Test Item Value Reference Range Interpretation [...] S NOT APPLICABLE FOR DIALYSIS PATIEN TS. [id number] 21:55:00 Test Item Value Reference Range Interpretation Comments PARTIAL THROMBOPLASTIN TIME 24.6 seconds 22.5-36.0 (BEAKER) (test code = 760) PROTHROMBIN TIME/[id number] 21:53:00 Test Item Value Reference Range Interpretation [...] PERCENT (BEAKER) (test code = 2801) TISSUE [id number] 09:23:00Surgical Pathology Report Case: [id number] Authorizing Provider: King Huynh MD Collected: 07/11/2018 0924 Ordering Location: [address] Received: 07/11/2018 1421 Service Pathologist: Linda [...] AND COMMENT) Signing Pathologist Direct Phone Line: [phone] signed by Linda Mullen MD on 07/12/2018 at 9:23 AMPatient's history of Crohn's disease is noted per Epic note dated 07/10/18. The current sampling shows no significant active or chronic colitis. This may represent complete histologic resolution following treatment. Clinical and endoscopic correlation is recommended.[id number] abdominal pain A. Random colon biopsy. B. [...] noted. No dysplasia or carcinoma is present.BLOOD [id number] 20:01:00 Test Item Value Reference Range Interpretation Comments CULTURE (BEAKER) (test No growth in 5 days code = 1095) BLOOD [id number] 20:01:00 Test Item Value Reference Range Interpretation Comments CULTURE (BEAKER) (test No growth in 5 days code = 1095) BASIC METABOLIC [id number] 04:55:00 Test Item Value Reference Range Interpretation [...] PATIEN TS. CBC W/PLT COUNT & AUTO [id number] 04:37:00 Test Item Value Reference Range Interpretation [...] (BEAKER) (test code = 2801) BASIC METABOLIC [id number] 06:15:00 Test Item Value Reference Range Interpretation [...] PATIEN TS. CBC W/PLT COUNT & AUTO [id number] 06:06:00 Test Item Value Reference Range Interpretation [...] code = 2801) STOOL CULTURE + SHIGA [id number] 12:15:00 Test Item Value Reference Range Interpretation Comments CULTURE (BEAKER) No Salmonella, Shigella (test code = 1095) or Campylobacter isolated BASIC METABOLIC [id number] 07:08:00 Test Item Value Reference Range Interpretation [...] PATIEN TS. CBC W/PLT COUNT & AUTO [id number] 06:42:00 Test Item Value Reference Range Interpretation [...] code = 2801) CT, ABDOMEN - PELVIS, [id number] 14:17:00Reason for exam:- >Evaluation of small bowel [...] lesion demonstrated. Endplate degenerative change at L1-2 awiJ90-B4 noted. There is an implanted pump in the right lower quadrant subcutaneous fat with a lead going to the thecal sac terminating at the T11 level. IMPRESSION: Evidence of acute colitis of the sigmoid colon. No small bowel enteritis demonstrated. No stricture, fistula, or intramesenteric abscess demonstrated. Signed: Ervin Johnson MDReport Verified Date/Time: 07/08/2018 14:17:31 Reading Location: [address] Ortho Consult Reading Room C METABOLIC [id number] 06:53:00 Test Item Value Reference Range Interpretation [...] PATIEN TS. CBC W/PLT COUNT & AUTO [id number] 06:25:00 Test Item Value Reference Range Interpretation [...] (BEAKER) (test code = 2801) SHIGA TOXIN [id number] 13:53:00 Test Item Value Reference Range Interpretation Comments SHIGA TOXIN 1 (BEAKER) (test Not detected Not detected code = 2177) SHIGA TOXIN 2 (BEAKER) (test Not detected Not detected code = 2179) C. DIFFICILE GDH [id number] 13:28:00 Test Item Value Reference Range Interpretation Comments CDT TOXIN (test code Negative Negative = [id number]) CDT GDH ANTIGEN (test Negative Negative No ind ication of code = 6717788002) Clostridi um difficile infection and n o colonization. Discontinue ent kaveh isolation and t herapy. Testing performed by Vivogig Rapid Cassette Assay. For GDH, published sensitivity of the assay is 98.7% compared to cytotoxicity testing. For Toxin AB, published sensitivity is 87.8% and specificity 99.4% compared to cytotoxicity testing.Verification of kit performance was done by the [facility] Microbiology Lab prior to clinical use.STOOL PATH [id number] 10:17:00 Test Item Value Reference Range Interpretation Comments PATHOGEN EXAM CHARGED (BEAKER) (test Done code = 2389) BASIC METABOLIC [id number] 05:17:00 Test Item Value Reference Range Interpretation [...] PATIEN TS. CBC W/PLT COUNT & AUTO [id number] 04:58:00 Test Item Value Reference Range Interpretation [...] = 2801) RAD, CHEST, 1 VIEW, NON [id number] 14:21:00Reason for exam:->FeverShould this be performed at the bedside?->YesFINAL REPORT TECHNIQUE: Frontal chest radiograph dated 07/06/2018. CLINICAL HISTORY: Fever COMPARISON STUDY: None IMPRESSION:Lungs are clear. No pleural effusion or pneumothorax. Cardiomediastinal silhouette is normal in size. No pulmonary edema. No fracture. Signed: Xiao Mckinney MDReport Verified Date/Time: 07/06/2018 14:21:04 Reading Location: [facility] Radiology Reading Room D DRUG SCREEN, [id number] 12:52:00 Test Item Value Reference Range Interpretation [...] situations. Chain of custody not maintained. Some evvl-khi-kvfmtqz medications, as well as adulterants, may cause inaccurate results. Clinical correlation should be applied. A more comprehensive drug screen or confirmation of a detected drug may be performed upon request.CBC W/PLT COUNT & AUTO [id number] 12:40:00 Test Item Value Reference Range Interpretation [...] 0-1 PERCENT (BEAKER) (test code = 2801) [id number] 12:12:00 Test Item Value Reference Range Interpretation Comments PHOSPHORUS (BEAKER) (test code = 3.0 mg/dL 2.3-4.7 604) [id number] 12:12:00 Test Item Value Reference Range Interpretation Comments MAGNESIUM (BEAKER) (test code = 2.1 mg/dL 1.6-2.6 627) BASIC METABOLIC [id number] 12:12:00 Test Item Value Reference Range Interpretation [...] APPLICABLE FOR DIALYSIS PATIEN TS. HEPATIC FUNCTION [id number] 12:12:00 Test Item Value Reference Range Interpretation [...] U/L 6-55 347) LACTIC ACID, VENOUS, WHOLE [id number] 12:08:00 Test Item Value Reference Range Interpretation Comments LACTATE BLOOD VENOUS 0.8 mmol/L 0.5-2.2 Specime n moderately (2) (BEAKER) (test hemolyzed code = 7310) URINALYSIS W/ REFLEX URINE [id number] 11:10:00 Test Item Value Reference Range Interpretation [...] = 516) SOURCE(BEAKER) (test code = 2795) CHEM [id number] 21:40:95920Vxrndjro HermannCHEM [id number] 21:40:003.2 [facility] [id number] 21:40:47176Cjvbmdwk HermannCHEM PANEL 2017-02-18 21:40:000.73[facility] HermannCHEM SFYDI2490-28-18 21:40:26890Oachbdls HermannCHEM [id number] 21:40:0011[facility] HermannCHEM QEIXQ9615-30-48 21:40:004.0[facility] HermannCHEM RLXUV5494-54-50 21:40:007.2[facility] HermannCHEM [id number] 21:40:008.2[facility] HermannCHEM [id number] 21:40:0021 [facility] HermannCHEM HERWZ0155 21:40:0028[facility] HermannCHEM PANEL 2017-02-18 21:40:000.5[facility] HermannCHEM [id number] 21:40:0054[facility] HermannCHEM [id number] 21:40:0012[facility] HermannCHEM GNAVE2578-20-07 21:40:0098[facility] HermannCHEM IMSNQ4639-89-76 21:40:003.2[facility] HermannCHEM IITQC7961-22-66 21:40:001.2[facility] HermannCHEM [id number] 21:40:0012.2 [facility]annCHEM ANPHI1728-37-19 21:40:0015[facility] HermannCHEM PANEL 2017-02-18 21:40:20695Scxhhhxg LgsdzmjKNBQUMNHRE7368-86-95 21:40:000.0[facility] DpzximaBFYJTJNCRL7280-38-21 21:40:000.5[facility] EmptoweGEZLJSMEKD4024-84-62 21:40:000.2[facility] UezixgeBFRNEQZSXU3256-68-02 21:40:006.9[facility] HCHCYRMMPF6624-02-37 21:40:003.0[facility] MyvfsyjMOKZSLGSGT4925-39-53 21:40:000.4 [facility] JrnkhicMSCNKRNOHJ5209-20-17 21:40:0028.1[facility] HermannHEMATOLOGY 2017-02-18 21:40:004.9[facility] FxxhslnVRPGRIHXGJ9279-91-92 21:40:001.6[facility] ZckxitwEFKLJKSUHM7743-79-70 21:40:0065.0[facility] QbgqaaoIBVKBEQBPM6965-18-52 21:40:71723Dwhqgbtm MvbwwscAKYYUUJKTN2940-50-67 21:40:006.9[facility] PSRBGRJUNO0331-43-53 21:40:0013.8[facility] YzlqtjwUAQZRHAZGW4654-98-83 21:40:00 41.9[facility] WfiluzwBECKGSWDFI1818-18-34 21:40:0095.4[facility] HermannHEMATOLOGY 2017-02-18 21:40:00 Test Item Value Reference Range Interpretation Comments MCH (test code = MCH) 31.4 pg 27.0-31.0 [facility] JlzhzqaPUZMKYKTPR9221-31-81 21:40:0032.9[facility] HermannHEMATOLOGY 2017-02-18 21:40:0014.0[facility] GnqtvtwPWUOPUGJVY0030-49-95 21:40:0010.6[facility] SzizgbaMLWMAOWRTH8422-93-23 21:40:004.39[facility] HermannURINE AND STOOL 2017-02-18 21:40:004[facility]annURINE AND XWHRP6198-99-59 21:40:006[facility]annURINE AND MGFBE9726-07-49 21:40:005.0[facility]annURINE AND STOOL 2017-02-18 21:40:00Negative (02/18/17 4:40 PM)[facility]annURINE AND STOOL 2017-02-18 21:40:00Negative (02/18/17 4:40 PM)[facility]annURINE AND STOOL 2017-02-18 21:40:00Negative *NA*(02/18/17 4:40 PM)[facility]ann[facility] AND [id number] 21:40:00Dark Yellow *NA*(02/18/17 4:40 PM)[facility] AND ZOIMG0934-52-48 21:40:00Slight *ABN*(02/18/17 4:40 PM)[facility]ann[facility] AND EUXYB8687-00-11 21:40:001.024[facility]annURINE AND KNDZA8492-72-83 21:40:00Negative (02/18/17 4:40 PM)[facility] HermannCHEM NRWGR7978-96-32 10:52:00 2.7[facility] HermannCHEM TVWUU2889-44-80 10:52:002.2[facility] HermannELECTROLYTES 2016-10-12 10:52:75654Pcplfkve RaiskvoYLPEQHWKEDHS9528-39-71 10:52:008.3[facility] YbxuuiqPHIYQQSIFRIM4646-38-98 10:52:0010.6[facility] HermannELECTROLYTES 2016-10-12 10:52:0088[facility] YahsiwsEJPVDCGGHUHU3424-88-11 10:52:92023Yntancdn KmjmqbvBFCFMFYBNRSJ9771-88-13 10:52:003.6[facility] PldoigzVKTHBPLRPEAW2017-82-56 10:52:006[facility] EayastdAINLNVMPBQDT0875-62-86 10:52:000.61[facility] NIKUZEYSTTZN7113-70-45 10:52:0028[facility] GwvyqugCTEHNSZCQTPD5923-43-99 10:52:00 110[facility] HermannCHEM WLVEY5138-94-41 09:37:15887Lupmalka HermannCHEM PANEL 2016-10-10 09:37:64667Znwejjba HermannCHEM ODBJL7646-46-31 09:37:000.61[facility] HermannCHEM ECXZY0713-86-95 09:37:63846Itgqubty HermannCHEM NOIVD1837-60-35 09:37:003.7[facility] HermannCHEM CZQVI0746-20-97 09:37:0031[facility] HermannCHEM XQBEI5040-80-00 09:37:008.4[facility] HermannCHEM BEBUV6158-19-48 09:37:006.7 [facility] HermannCHEM LBOVU5286-50-30 09:37:009[facility] HermannCHEM PANEL 2016-10-10 09:37:0098[facility] YynkkziMBKAOSDTOP2079-32-47 09:37:0011.8[facility] TvmtxmpFGLLVRMZNJ9591-33-71 09:37:008.0[facility] RwsagcvEYIBJCFTCS0702-26-95 09:37:00 Test Item Value Reference Range Interpretation Comments MCH (test code = MCH) 30.2 pg 27.0-31.0 [facility] PaahwyiJVNUBFPUHC3708-70-41 09:37:003.90[facility] HermannHEMATOLOGY 2016-10-10 09:37:0036.5[facility] XufhqngPYCWZRBDLX4392-38-16 09:37:0093.6[facility] KymgpwvNNFDOEAVOS2687-72-94 09:37:0014.7[facility] SoljpfwJTUFLOJIDJ1255-34-94 09:37:006.6[facility] SiijkzeIZGFMNJLIW5372-14-08 09:37:0032.3[facility] NBBICLRQIR1094-52-66 09:37:35803Zhailqxu AxlhtfnKLZDMNVRXB9147-16-19 09:37:000.0 Memorial RpdyvjnGQZOYLKNOK1154-57-11 09:37:005.3[facility] HermannHEMATOLOGY 2016-10-10 09:37:0028.2[facility] VnxlctdISOPZJOAJK5362-79-40 09:37:0064.9[facility] UiruayvBMVTMGQNHB4923-85-67 09:37:001.4[facility] HdeljicWSKSBFLSDV7493-41-70 09:37:000.2[facility] MnkqjwsMMGXHQULYX7610-87-52 09:37:002.3[facility] IDSOUOZGDU0504-17-93 09:37:000.1[facility] BujzvjrUXMBUPHWOE0936-14-23 09:37:005.2 Memorial SbttqrpLAZCUTYULX7803-17-61 09:37:000.4[facility] HermannMOLECULAR LOWBZSIBJK8739-59-89 08:26:00Positive 1*ABN*(10/10/16 3:26 AM)[facility] URINE AND GVLMU4815-45-61 08:26:00None Seen (10/10/16 3:26 AM)[facility] CHEM EQBDK1920-41-81 04:11:0013[facility] HermannCHEM HUEWA1018-60-24 04:11:0010.6 [facility]annCHEM ZCJCV1479-13-05 04:11:003.7[facility] HermannCHEM PANEL 2016-10-10 04:11:001.1[facility] HermannCHEM UUZVP6498-93-21 04:11:000.2[facility] HermannCHEM YUVBE2600-92-80 04:11:0013[facility]annCHEM QPPYD5116-01-95 04:11:31053Nebuwfnh HermannCHEM FOIQH2214-65-03 04:11:0082[facility]annCHEM FYPZA5265-74-17 04:11:000.86[facility]annCHEM ZPPDT0140-80-70 04:11:0034 [facility]annCHE[facility] SYDWC7727-21-63 04:11:009.5[facility]annCHEM PANEL 2016-10-10 04:11:07492Eqduqcgg HermannCHEM UGSFB6447-78-27 04:11:0011[facility]annCHEM MUKPS3266-25-95 04:11:003.6[facility]annCHEM EQPSF8308-65-00 04:11:63489Izobqyjk HermannCHEM YSBGS5525-93-69 04:11:0099[facility]annCHEM IEHHU0085-05-60 04:11:007.8[facility]annCHEM GVHCL1821-16-67 04:11:004.1 [facility]annCHE[facility] ITSWH4526-01-51 04:11:0018[facility] HermannENDOCRINOLOGY 2016-10-10 04:11:00<1[facility] UuphrmoNIMMDAXQPP0224-38-70 04:11:007.5[facility] QnzzbgdPOVRZQSWCR2692-43-58 04:11:0067.9[facility] KcwsqocONOKFPMYMC4217-83-90 04:11:001.4[facility] MrbncwbMTEWHKDTOP7496-53-84 04:11:004.5[facility] EJNXORVJOJ9304-36-69 04:11:000.3[facility] RjzafhoVYGRZHMTDZ9409-70-36 04:11:00 25.9[facility] GsstauiMDKATBHCZQ8454-58-33 04:11:000.2[facility] HermannHEMATOLOGY 2016-10-10 04:11:002.9[facility] YrrbfyoPNCTRLUURL4905-83-31 04:11:000.5[facility] QkfrnznMPRMBUJBOG8876-98-33 04:11:000.0[facility] JpxvgayKZZAZRCHUN7471-69-80 04:11:0032.7[facility] PpftddhLIMEIRYKFI3438-41-06 04:11:00 Test Item Value Reference Range Interpretation Comments MCH (test code = MCH) 30.5 pg 27.0-31.0 [facility] AjzpxiqDENPHYWUJB5673-03-12 04:11:004.68[facility] HermannHEMATOLOGY 2016-10-10 04:11:0011.1[facility] JzzkdjiBQNTJYPMFM8661-44-07 04:11:0093.4[facility] IcpbuynPQOUZKOQLW3078-74-80 04:11:0014.3[facility] UijugetNHHQWRMOMS2166-84-22 04:11:0043.7[facility] MchtqemCVXIVDMVQE5542-24-02 04:11:25930Durckbem Markus QWAEZJZXRS6846-41-30 04:11:0014.9[facility] AskywcxKTYHDZYWZG0904-37-11 04:11:00 7.0[facility] BZRFN2920-90-53 04:11:001.020[facility] GIBBZ4836-99-19 04:11:004[facility] GHCHN8737-40-93 04:11:00 Negative (10/09/16 11:11 PM)[facility] MQCGP2838-20-93 04:11:00 Negative (10/09/16 11:11 PM)[facility] YPIRF6159-76-07 04:11:00 Negative *NA*(10/09/16 11:11 PM)[facility] ECLXM7361-37-39 04:11:00Negative (10/09/16 11:11 PM)[facility] OMCZN1303-80-84 04:11:002[facility] KRRXN8869-94-79 04:11:004[facility] IHKZG2888-92-44 04:11:00Marked *ABN*(10/09/16 11:11 PM)[facility] RORTX7788-75-16 04:11:00Dark Yellow *NA*(10/09/16 11:11 PM)[facility] GHBKM6425-49-58 04:11:008.0[facility]annCT ABDOMEN/PELVIS YRVS4122-50-00 14:26:[address] [address]WLDSUKJDYO IMAGING REPORTPatient Name: Manuel DEL TORO of Service: [id number]: 45 Sex: F Order #: [id number] Room: ERSDOB: 1970 X-Ray Number: [id number] Record Number: [id number] Hospital Number: [id number] Physician: KISHAN MUNOZ -Ordering Physician: HERNANDEZ MONTEMAYOR [...] authenticated by TIFFANIE Syed 2016-07-26 14:23:48CT ABDOMEN/PELVIS LQFOBYT1078-02-97 02:49:[address] [address]VQKKWAXAZP IMAGING REPORTPatient Name: Manuel DEL TORO of Service: [id number]: 45 Sex: F Order #: [id number] [facility]: [facility]/ A 2NEDOB: 1970 X-Ray Number: [id number] Record Number: [id number] Hospital Number: [id number] Physician: BLAKE ALLEN -Ordering Physician: AURORA LOWERY abdomen and pelvis without IV contrast, with GI contrast 1842 hours3/2017HISTORY: Abdominal pain with nause a, history of [...] authenticated by MARTINEZ VALDEZ 2016-07-17 02:47:19ABDOMEN 2 IJRZD7582-31-94 12:14:[address] [address]JDTSEKODNA IMAGING REPORTPat ient Name: Manuel DEL TORO of Service: [id number]: 45 Sex: F Order #: [id number] [facility] 1970 [facility]-Ray Number: [id number] Record Number: [id number] Hospital Number: [id number] Physician: Austin TEJEDA Physician: Elvis GARCIA 2 views 07/15/2016 at11:40 [...] 12:12 PMLegally authenticated by RAFA GALVAN 2016-07-15 12:12:48VLYIUAATCY0770-32-38 19:01:004.79[facility] GrucwenBCHRDRRVQC1130-46-53 19:01:000.9[facility] DPCXEMTAIN4427-07-89 19:01:007.4[facility] CderosvZWNDHQXAQA8685-43-64 19:01:001.6 [facility] MgerjnvFCDYITDHQX1108-08-05 19:01:005.0[facility]annHEMATOLOGY 2016-02-10 19:01:0025.2[facility] ZjxhnisTRYVYBWBXK3390-01-96 19:01:000.2[facility] RbmszltVWQGBVQEKL3229-90-54 19:01:000.1[facility] TddjgqzUNHFKAUPCV6206-15-81 19:01:000.6[facility] QdkedztVJDOPYGCXB5841-84-94 19:01:002.8[facility] AGVPUJHQJR1712-33-05 19:01:0067.3[facility] HermannCHEM CFDKT0861-66-49 19:01:00 2.1[facility]annCHEM XVGSQ0746-97-21 19:01:0097[facility]annCHEM PANEL 2016-02-10 19:01:000.3[facility]annCHEM VMGTY1839-10-66 19:01:0098[facility]annCHEM WQGVD1175-24-17 19:01:0024[facility]annCHEM ADLVD3720-19-80 19:01:0024[facility]annCHEM GSLFT3482-61-75 19:01:004.3[facility] HermannCHEM UEORY5009-56-56 19:01:000.75[facility]annCHEM MSDQX4579-14-87 19:01:69211 [facility]annCHE[facility] LDFSU3543-19-29 19:01:0091[facility]annCHEM PANEL 2016-02-10 19:01:008[facility]annCHEM LGOSU9870-69-79 19:01:003.2[facility] HermannCHEM BEUTQ5576-98-72 19:01:007.6[facility]annCHEM ZDXVI7860-35-30 19:01:0026[facility]annCHEM LKHJT0425-21-68 19:01:008.4[facility] HermannCHEM NYMNF1316-44-16 19:01:31069Gkxpgdne HermannCHEM FJITU3143-08-33 19:01:0011.3 [facility]annCHEM FQCAX9494-64-69 19:01:000.7[facility]annCHEM PANEL 2016-02-10 19:01:004.4[facility]annCHEM PSOOP0591-24-26 19:01:0011[facility] EnpdhboKFWCURCVIU3341-71-10 19:01:007.0[facility] VpruvujXZABTGDRHY4639-98-29 19:01:49819Qneovlhd IxykwfjWYGEUYQZRE7745-87-63 19:01:0013.9[facility] FIEFTJFWES7370-63-70 19:01:00 Test Item Value Reference Range Interpretation Comments MCH (test code = MCH) 30.2 pg 27.0-31.0 [facility] KwzocoiCXBADURXEJ8598-77-04 19:01:0033.4[facility] HermannHEMATOLOGY 2016-02-10 19:01:0011.0[facility] AlqrpdpZDDSAFPMVD6824-56-97 19:01:0090.4[facility] UcjumdnBIPCFKCCAS1205-74-41 19:01:0043.3[facility] KvlqwxyFEGWGKBZKI9860-18-69 19:01:0014.5[facility] DHXQW4345-11-34 15:41:00None Seen (08/13/14 10:41 AM)[facility] NIRFC2210-56-09 15:41:00Trace *ABN*(08/13/14 10:41 AM)[facility] KBQWQ0090-97-32 15:41:00Negative (08/13/14 10:41 AM)[facility] PGEEN1786-70-88 15:41:00Negative *NA*(08/13/14 10:41 AM)[facility] FXIXS6958-90-11 15:41:00Negative *NA*(08/13/14 10:41 AM)[facility] OUGYY7936-19-87 15:41:000.2 [facility] ZEXXC4217-66-20 15:41:00Negative (08/13/14 10:41 AM) [facility] MGQKG8156-39-37 15:41:00Small *ABN*(08/13/14 10:41 AM) [facility] ICNVQ6678-71-46 15:41:00Negative (08/13/14 10:41 AM) [facility] ZJXWK8623-63-28 15:41:00>=1.030 *ABN*(08/13/14 10:41 AM)[facility] NGGSV3138-56-93 15:41:00 Test Item Value Reference Range Interpretation Comments UA pH (test code = UA pH) 6.0 1 5.0-8.0 [facility] EFVCS5042-76-36 15:41:00Yellow *NA*(08/13/14 10:41 AM) [facility] RAGKS0146-57-80 15:41:00Clear (08/13/14 10:41 AM) [facility]annCHEM AFLMC0936-37-33 12:37:0070[facility] HermannCHEM PANEL 2014-08-13 12:37:51842Mnkjqije HermannCHEM IGSLA2325-65-19 12:37:001.0[facility]annCHEM ZPNYJ7602-98-63 12:37:0029[facility]annCHEM ROPEZ4486-34-56 12:37:002.7[facility]annCHEM CVPFT6890-84-07 12:37:0064[facility]annCHEM CLGNT2925-44-57 12:37:000.7[facility]annCHEM VLOWM0223-49-85 12:37:0082 [facility]annCHEM LYZFO4891-26-43 12:37:0024[facility]annCHEM PANEL 2014-08-13 12:37:004.2[facility]annCHEM RQXUF7845-62-17 12:37:0029[facility]annCHEM MPLCH3602-25-98 12:37:0026[facility]annCHEM PWVON8009-36-67 12:37:009.0[facility]annCHEM PFHHB2693-45-91 12:37:008.7[facility]annCHEM RNFWN4949-76-22 12:37:0029[facility]annCHEM ILDPL0752-52-37 12:37:67385 [facility]annCHEM RWFBX2612-23-02 12:37:001.2[facility] HermannCHEM PANEL 2014-08-13 12:37:003.5[facility]annCHEM LFZJV0608-50-52 12:37:007.7[facility] AkyhphcXQBBOWJDNJ0741-20-43 12:37:0014.1[facility] AdbvknjQDCHLHKZBJ7666-15-73 12:37:00 Test Item Value Reference Range Interpretation Comments MCH (test code = MCH) 30.5 pg 27.0-31.0 [facility] YqstffwKOQCWFEOCN8320-43-14 12:37:0033.3[facility] HermannHEMATOLOGY 2014-08-13 12:37:006.7[facility] PwplqptDAFRALBZWE8144-48-22 12:37:54779Pbmbavst EvsokfaEIGHEXVERT8055-27-97 12:37:0091.6[facility] RllczmlHHRSRBWARB1472-24-69 12:37:0040.4[facility] JnynywaOZCOMGXPRO1431-36-87 12:37:0013.4[facility] VFHCZQNGHV1257-49-12 12:37:008.0[facility] KiucinaNLWKGEABTZ5252-53-58 12:37:00 4.41[facility] BzvfgmoOBTEQNXNKL2244-78-96 12:37:000.0[facility] HermannHEMATOLOGY 2014-08-13 12:37:002.4[facility] LdeqtisJHJDTGVTNE2697-15-14 12:37:004.9[facility] TtylgwmYGVJLVKDEB9859-36-02 12:37:000.1[facility] UuhncsdYNEIQVQGOP4380-86-51 12:37:000.5[facility] MkpixuoCWXJZPBMHH2659-71-75 12:37:001.6[facility] PHJCUZEXCB3809-93-59 12:37:006.5[facility] DbtvgtbXVFNWHDCGT5171-54-23 12:37:00 30.0[facility] PrirjooWSFRXAGQYS1026-62-50 12:37:0061.6[facility] HermannHEMATOLOGY 2014-08-13 12:37:000.3[facility] HermannCHEM ESWFR0726-44-55 13:50:001.8[facility]annCHEM XIOKR6378-41-80 12:55:72480Fmkgtspe HermannCHEM APFMS5630-46-82 12:55:0050[facility]annCHEM PGJJQ5142-43-39 12:55:001.2[facility] HermannCHEM FAETE5544-37-93 12:55:003.3[facility] HermannCHEM ZGBFG5088-67-88 12:55:008 [facility]annCHEM UBGEO4437-29-27 12:55:0061[facility] HermannCHEM PANEL 2014-03-09 12:55:0016[facility]annCHEM ISGWJ3774-72-41 12:55:009.1[facility] HermannCHEM MKTXX2094-45-40 12:55:0012[facility]annCHEM KHFOK2516-75-15 12:55:007.2[facility] HermannCHEM AYSUC3202-42-69 12:55:009.3[facility]annCHEM FTVXM6273-47-50 12:55:003.9[facility]annCHEM MEIGW9914-05-34 12:55:000.9 [facility]annCHEM NTLVO2176-97-27 12:55:0079[facility] HermannCHEM PANEL 2014-03-09 12:55:68802Sdtqaaaq HermannCHEM DGAUR7538-32-24 12:55:0011[facility]annCHEM QDFFZ1677-50-80 12:55:000.9[facility]annCHEM FONLP4113-02-65 12:55:002.3[facility]annCHEM AWTLP7427-00-52 12:55:40421Ewgjetyu HermannCHEM YLPTL1580-08-15 12:55:0027[facility]annCHEM NBZZI5585-71-04 12:55:98401 [facility] HxcgrsjYJLINGQWNU8418-18-24 12:55:000.5[facility] HermannHEMATOLOGY 2014-03-09 12:55:000.3[facility] RpqhtkaYGSLGISVNF9922-50-23 12:55:002.3[facility] AocruobXWLTWAFSNG6656-68-62 12:55:007.0[facility] ZumhaqcKMTIWSAIDO5101-33-83 12:55:000.3[facility] SxaoqejJBKGIVWPQY1649-34-72 12:55:000.0[facility] DOZQAMGQHU4963-61-39 12:55:000.0[facility] EjdjwyxXHTDJQNILH5624-10-10 12:55:004.6 [facility] ZuoiuibSLIBZZLUBA8526-66-14 12:55:0023.4[facility] HermannHEMATOLOGY 2014-03-09 12:55:0071.4[facility] AbnprilFSPSKKAJIN7339-20-63 12:55:001.08[facility] InbylbuWVEFAUWLCT4494-76-05 12:55:00 Test Item Value Reference Range Interpretation Comments PTT (test code = PTT) 28.7 s 22.9-35.8 [facility] FsuratnGHMNEZIUIU4459-23-68 12:55:00 Test Item Value Reference Range Interpretation Comments PT (test code = PT) 14.0 s 12.0-14.7 [facility] PsrburpNXIFEFXUBY1579-63-93 12:55:0045.4[facility] HermannHEMATOLOGY 2014-03-09 12:55:0094.6[facility] NaxjrczNUJYLBYVVK1498-23-65 12:55:004.80[facility] KejjzjgHACPYDTVVN7122-18-12 12:55:0015.2[facility] PnfffviIEXJHYRRFO7402-20-92 12:55:009.9[facility] GgsoyirJWADKCYVSN7000-31-21 12:55:60451Zhmcrxqy Delong VGPBFYLSOF8512-27-46 12:55:007.5[facility] SdehdrzLRAJTEFEUO2433-71-65 12:55:00 13.7[facility] HusxeajIMRIKGOHCT5012-36-32 12:55:00 Test Item Value Reference Range Interpretation Comments MCH (test code = MCH) 31.7 pg 27.0-31.0 [facility] WckewyiTFADABLRND5046-99-33 12:55:0033.5[facility] HermannIMMUNOLOGY 2014-03-09 12:55:00Negative (03/09/14 6:55 AM)[facility] STOOL 2014-03-09 12:55:00Negative (03/09/14 6:55 AM)[facility] STOOL 2014-03-09 12:55:00Negative (03/09/14 6:55 AM)[facility] STOOL 2014-03-09 12:55:00Negative *NA*(03/09/14 6:55 AM)[facility] STOOL 2014-03-09 12:55:00Negative *NA*(03/09/14 6:55 AM)[facility] STOOL 2014-03-09 12:55:00Large *ABN*(03/09/14 6:55 AM)[facility] STOOL 2014-03-09 12:55:001.0[facility] STVKM7139-54-37 12:55:00Negative (03/09/14 6:55 AM)[facility] YOKJD8811-64-58 12:55:00 Test Item Value Reference Range Interpretation Comments UA Spec Grav (test code = UA Spec 1.015 1 Grav) [facility] GVMFO8832-75-60 12:55:00 Test Item Value Reference Range Interpretation Comments UA pH (test code = UA pH) 7.5 1 5.0-8.0 [facility] ZQZVD8987-94-63 12:55:00Negative (03/09/14 6:55 AM) [facility] NPANN7001-90-71 12:55:00Clear (03/09/14 6:55 AM) [facility] TOTUD1659-45-49 12:55:00Yellow *NA*(03/09/14 6:55 AM) [facility] LjwfrodPCWFKNOWNUJC3543-36-78 16:00:002.9[facility] HermannELECTROLYTES 2014-01-14 16:00:000.9[facility] RuzyslbDQAIAKEVKRWU7086-61-67 16:00:10060Axwqmrfg SrxzmngVPGVGIYAUXDZ3763-14-19 16:00:0011[facility] LoahrliMROZBGBTQJYJ7135-21-64 16:00:0089[facility] KapxmglPBDGFXVOJSLU7952-54-50 16:00:0013[facility] PHODTCSNXYHD0972-84-54 16:00:0076[facility] AatapxfTARLCAWOCFDV4447-16-58 16:00:00 0.4[facility] BbdldqeGKGXKPUVVNZA9208-27-79 16:00:002.9[facility] QYEVPDWWWXHO8889-51-02 16:00:001.2[facility] YvyqrwkBBFMNCDOVSTW9721-84-76 16:00:0016[facility] YljobpwJIHCKWGVVUNP9903-12-44 16:00:0012[facility] USYYZBBQAVBS8367-41-07 16:00:003.6[facility] PeoaspjLWYYGPMIBZKU3228-60-72 16:00:006.5[facility] GhxkyeeYPFRDHINCMLH5231-00-33 16:00:0020[facility] NWBXRVWVGJDN3080-16-05 16:00:99864Rmputgwt TsirbyjGWREKZUUNZXK3219-21-33 16:00:0016.9[facility] BunpskeCEIKLIQLCXKH9523-92-53 16:00:008.6[facility] BNBIDDHRJWUG1466-37-40 16:00:0079[facility] QwoalpnZVQUTDDGQS3098-37-34 16:00:00 4.29[facility] GmafvgjWAQYPWOSVR6311-91-75 16:00:006.7[facility] HermannHEMATOLOGY 2014-01-14 16:00:81747Orvoygwt HmqvtseFWAUBJPHBM8276-41-17 16:00:0014.6[facility] CnmkwsrZKMHZJWPQB1734-20-69 16:00:0033.9[facility] OkgzujzYCHSZWAHBF8278-30-43 16:00:00 Test Item Value Reference Range Interpretation Comments MCH (test code = MCH) 31.1 pg 27.0-31.0 [facility] HldtlpaEQTAIBYDEH8364-31-49 16:00:0091.6[facility]annHEMATOLOGY 2014-01-14 16:00:0039.3[facility] SosbizlIMKHZMLGAC7825-56-19 16:00:0013.4[facility] LuxeqsxVXZAAIXEEP4638-76-84 16:00:0013.4[facility] AllaqsfLCHNBNNCMV8237-28-00 16:00:000.0[facility] MtgixfrZOSFSSFVAE6166-55-07 16:00:000.0[facility] VXNSCZHJCI0614-88-51 16:00:000.6[facility] FoukzdyYMPXGALVRU9593-09-08 16:00:00 10.1[facility] SxgtttyDXKAHIRXDZ2154-95-13 16:00:002.7[facility] HermannHEMATOLOGY 2014-01-14 16:00:004.4[facility] FmwmdxuPMSAHQTMBP2165-64-98 16:00:0020.1[facility] AysdgxxRWAZHCDLCE5911-42-37 16:00:0074.9[facility] DabntovJDKIVNPIFQ7228-10-49 16:00:000.3[facility] IcowquxBTTMAUOWBA2559-31-90 16:00:000.3[facility] IKVPFSFUCE1739-25-71 16:00:006.2[facility] VkqtgrdUYSPPXCCOK4117-76-54 16:00:009 [facility] VjnjxevACMBTEEKXE6823-45-78 16:00:00<3[facility] HermannTOXICOLOGY 2014-01-14 16:00:00<0.003[facility] HermannDRUG DJBTEO5057-12-80 15:30:41 Positive *ABN*(01/14/14 10:30 AM)[facility]annDRUG DWDGEQ4809-19-52 15:30:41 Negative *NA*(01/14/14 10:30 AM)[facility]annDRUG EPNUMQ4236-08-15 15:30:41 Negative *NA*(01/14/14 10:30 AM)[facility]annDRUG TYGZEN6324-58-00 15:30:41 Positive *ABN*(01/14/14 10:30 AM)[facility]annDR[facility] RMTAEJ2022-35-32 15:30:41 See Note 4(01/14/14 10:30 AM)[facility]annDR[facility] IXFUGH2954-12-65 15:30:41 Negative *NA*(01/14/14 10:30 AM)[facility]annDRUG ICKQEY6641-36-93 15:30:41 Negative *NA*(01/14/14 10:30 AM)[facility]annDRUG BDPVCQ4787-56-54 15:30:41 Positive *ABN*(01/14/14 10:30 AM)[facility] YDWGM9257-89-61 15:30:000.2[facility] WEGTU4757-81-63 15:30:00Negative (01/14/14 10:30 AM)[facility] YKZWQ2816-26-77 15:30:00Moderate *ABN*(01/14/14 10:30 AM)[facility] ZXNEM6342-59-21 15:30:00Packed *ABN*(01/14/14 10:30 AM)[facility] WZONU3488-92-99 15:30:00 Moderate *ABN*(01/14/14 10:30 AM)[facility] MIPHC1509-76-63 15:30:00Trace *ABN*(01/14/14 10:30 AM)[facility] BWKQX6485-56-52 15:30:00Yellow *NA*(01/14/14 10:30 AM)[facility] XAGPN9830-48-57 15:30:00 Test Item Value Reference Range Interpretation Comments UA pH (test code = UA pH) 6.0 1 5.0-8.0 [facility] PDGKT1048-93-11 15:30:00>=1.030 *ABN*(01/14/14 10:30 AM)[facility] UUPIU2636-10-49 15:30:00Slight Cloudy (01/14/14 10:30 AM)[facility] IYBOG7227-85-98 15:30:00Negative (01/14/14 10:30 AM)[facility] QDPFF5760-18-00 15:30:00Trace *ABN*(01/14/14 10:30 AM)[facility] SXEE7387-22-16 15:30:00Negative (01/14/14 10:30 AM)[facility] HermannCHEM GBCBU3005-07-71 04:50:45728Doljxakw HermannCHEM PANEL 2014-01-14 04:50:0023[facility] HermannCHEM EDCOG2272-72-81 04:50:0069[facility] HermannCHEM DXZDO9507-73-90 04:50:000.5[facility] HermannCHEM RXCZU8341-35-43 04:50:0014[facility] HermannCHEM CBDFS0602-15-37 04:50:002.9[facility] HermannCHEM AHKLV6920-07-79 04:50:87784Otamcthx HermannCHEM EPMJC7282-77-50 04:50:0019.9 [facility] HermannCHEM NLKAE8450-50-12 04:50:008.4[facility] HermannCHEM PANEL 2014-01-14 04:50:006.0[facility] HermannCHEM WNKRN7054-56-08 04:50:003.3[facility] HermannCHEM XUPOB6660-96-23 04:50:0018[facility] HermannCHEM CKEHD5685-93-97 04:50:0021[facility] HermannCHEM KSCKG0602-82-88 04:50:000.7[facility] HermannCHEM YQDLR8303-33-93 04:50:65172Elaqtkon HermannCHEM FPFOX3861-07-03 04:50:0015 [facility] HermannCHEM KAUTN5895-88-89 04:50:0095[facility] HermannCHEM PANEL 2014-01-14 04:50:0014[facility] HermannCHEM TGNYW2235-86-79 04:50:17616Fadkjepg HermannCHEM QAHKY1819-32-76 04:50:001.2[facility] HermannCHEM ITBXP1630-34-70 04:50:002.7[facility] UhwvcqtTJSANHAVLI2394-53-35 03:50:007.8[facility] PTLEGFWYFU6453-66-49 03:50:002.4[facility] JbhmuxeVKYGJIGWNW5757-80-08 03:50:004.6 [facility] BtyjypsTJLYQPMZFP5719-90-04 03:50:000.5[facility] HermannHEMATOLOGY 2014-01-14 03:50:0022.4[facility] EgrfpalQKSBMBSJEF7217-21-37 03:50:000.0[facility] PyjtbteXAWHYVMYPF6643-69-17 03:50:000.1[facility] GqgmtdmKQYAMJDROY3211-62-65 03:50:000.6[facility] EwfjamkKLCTGYAZLZ0807-30-48 03:50:000.3[facility] VZZOWRGGOJ8510-31-86 03:50:0072.1[facility] QnahassBIXVMXITQH7456-99-91 03:50:00 7.0[facility] UduwlhkTWMUTWGZFO9771-23-41 03:50:59883Fzziccgv HermannHEMATOLOGY 2014-01-14 03:50:0014.8[facility] DawwhfmCUJTCMZRZP9928-19-40 03:50:0033.5[facility] VjwfbslNNAMADBRFD6170-51-73 03:50:00 Test Item Value Reference Range Interpretation Comments MCH (test code = MCH) 30.7 pg 27.0-31.0 [facility] OvqtdahIYAUEQQUNC4766-41-14 03:50:0041.5[facility] HermannHEMATOLOGY 2014-01-14 03:50:004.53[facility] ElhgmezUUTVNHJPZZ0141-78-09 03:50:0013.9[facility] IevjibvNLQCBMJXTH9421-04-52 03:50:0010.8[facility] NqemiuwZCRJITJJUS0351-74-85 03:50:0091.6[facility] VuznrllSltklgicc1092-94-44 15:05:540.44[facility] Ob/Gaa3610-96-63 16:10:03NormalMemorial BtmcqmqXsvakrqgt9880-58-70 16:10:03 NormalMemorial Markus
--- NOTE | 2020-09-10 16:35 | RAD REPORT ---
EXAM DESCRIPTION: RAD - Chest Single View - 09/10/2020 4:27 pm CLINICAL HISTORY: ABDOMINAL DISTENTION Chest pain. COMPARISON: Abdomen Acute Series dated 11/25/2018; Abdomen 1 View (KUB) dated 11/21/2018; Chest Single View dated 11/06/2018; Abdomen Acute Series dated 07/18/2018 FINDINGS: Portable technique limits examination quality. The lungs are grossly clear. The heart is normal in size. No displaced fractures. IMPRESSION: No acute intrathoracic process suspected.
[2020-09-10 17:23] LABS: Absolute Lymphocytes (CBC) 1.6 K/uL (0.7-4.9); Basophils % 0.4 % (0-1.3); Hematocrit 39.5 % (36.0-45.0); Lymphocytes % 23.1 % (15.3-44.8); MPV 6.8 fL (7.6-11.3); RBC Red Blood Cell Count 4.41 M/uL (3.86-4.86)
[2020-09-10] MEDS ORDERED: ONDANSETRON 4 MG/2 ML VIAL ONE (17:27)
[2020-09-10] MEDS ORDERED: NA CHLORIDE 0.9% 0 ML ONE (17:27)
[2020-09-10] MEDS ORDERED: MORPHINE 4 MG/ML SYR ONE (17:27)
[2020-09-10] MEDS ORDERED: METHYLPREDNISOLONE 125 MG INJ ONE (17:27)
[2020-09-10] MEDS ORDERED: PANTOPRAZOLE 40 MG INJ ONE (17:27)
[2020-09-10] MEDS ORDERED: CEFTRIAXONE/SWI 1gm 1 GM/10 ML SYR ONE (17:28)
[2020-09-10] MEDS ORDERED: METRONIDAZOLE 500mg IVPB 500 MG/100 ML BAG IV ONE (17:28)
[2020-09-10] MEDS ORDERED: NA CHLORIDE 0.9% 1,000 ML ONE (17:28)
[2020-09-10 17:44] LABS: ALT/SGPT 18 U/L (12-78); AST/SGOT 11 U/L (15-37); Albumin 3.3 g/dL (3.4-5.0); Alkaline Phosphatase 59 U/L (45-117); BUN Blood Urea Nitrogen 12 mg/dL (7-18); Bicarbonate 31 mmol/L (21-32); Bilirubin Direct < 0.1 mg/dL (0-0.2); Bilirubin Total 0.3 mg/dL (0.2-1.0); Glucose Level 85 mg/dL (74-106); Lipase 74 U/L (73-393); Magnesium 2.1 mg/dL (1.8-2.4); NT PRO-BNP 29 pg/mL (<125); Potassium 4.1 mmol/L (3.5-5.1); Protein, Total 6.7 g/dL (6.4-8.2); Sodium Level 138 mmol/L (136-145); Troponin (Emerg Dept Use Only) < 0.02 ng/mL (0.0-0.045)
[2020-09-10 17:48] LABS: Protime INR 1.03
[2020-09-10] MEDS ORDERED: HYDROMORPHONE HCL 1 MG/ML INJ ONE ×2 (17:59→19:19)
--- NOTE | 2020-09-10 19:04 | RAD REPORT ---
EXAM DESCRIPTION: CTAbdomen Pelvis W Contrast - 09/10/2020 6:56 pm CLINICAL HISTORY: Abdominal pain. Abdominal distention;Abd pain COMPARISON: Abdomen Pelvis W Contrast dated 07/27/2019; Abdomen Pelvis W Contrast dated 9; Abdomen Pelvis W Contrast dated 10/15/2018; Abdomen Pelvis W Contrast dated 07/14/2018 TECHNIQUE: Biphasic CT imaging of the abdomen and pelvis was performed with 100 ml non-ionic IV cont rast. All CT scans are performed using dose optimization technique as appropriate and may include automated exposure control or mA/KV adjustment according to patient size. FINDINGS: The lung bases are clear. Mild fatty liver is seen. Cholecystectomy clips are present. No aggressive liver lesion or biliary di latation. The spleen, pancreas adrenal glands are normal. 3.3 cm cyst is present superior left kidney with small peripheral calcification. Small benign right renal cyst also seen. No hydronephrosis. No bowel obstruction, free air, free fluid or abscess. Small fat containing ventral hernia. Focal int raluminal soft tissue thickening is seen within small bowel loop in the right abdomen (image 38/49). There are adjacent surgical clips present. The adjacent small bowel loop demonstrates mild mucosal th ickening. The appendix is not identified as a discrete structure, however, no secondary findings of a ppendicitis are identified. No evidence of significant lymphadenopathy. No suspicious bony findings. IMPRESSION: Focal soft tissue prominence within small bowel loop in the right abdomen noted mild adj acent mucosal thickening. Postoperative changes are present in the region as well. Follow-up small aliyah wel pill cam assessment may be of value visualize this region directly.
--- NOTE | 2020-09-10 19:28 | ER ---
Nurse's Notes [facility] Name: Angela Rodriguez Age: 49 yrs Sex: Female : 1970 Arrival Date: 09/10/2020 Time: 15:22 Bed 6 Private MD: Diagnosis: Crohn's disease [regional enteritis];Vomiting;Bipolar disorder;Abdominal tenderness Presentation: 09/10 15:46 Chief complaint: Patient states: abd pain and nausea for a couple of days. Denies sv v/d/fever/chills. Coronavirus screen: Client denies travel out of the [place] in the last 14 days. At this time, the client does not indicate any symptoms associated with coronavirus-19. Ebola Screen: No symptoms or risks identified at this time. Risk Assessment: Do you want to hurt yourself or someone else? Patient reports no desire to harm self or others. Onset of symptoms was August 2020. 15:46 Method Of Arrival: Ambulatory sv 15:46 Acuity: LIZZY 3 sv 15:46 Initial Sepsis Screen: Does the patient meet any 2 criteria? No. Patient's initial sv sepsis screen is negative. Does the patient have a suspected source of infection? No. Patient's initial sepsis screen is negative. 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 - Social history:: Smoking status: Patient denies any tobacco usage or history of. - Family history:: not pertinent. Screenin:52 Abuse screen: Denies threats or abuse. Nutritional screening: No deficits noted. kg Tuberculosis screening: No symptoms or risk factors identified. Fall Risk None identified. No fall in past 12 months (0 pts). No secondary diagnosis (0 pts). No IV (0 pts). Ambulatory Aid- Crutches/Cane/Walker (15 pts). Gait- Normal/Bed Rest/Wheelchair (0 pts) Mental Status- Oriented to own ability (0 pts). Total Walters Fall Scale indicates No Risk (0-24 pts). Assessment: 15:50 General: Appears uncomfortable, Behavior is calm, cooperative, appropriate for age, kg quiet. Pain: Complains of pain in right upper quadrant and left upper quadrant Pain currently is 9 out of 10 on a pain scale. at worst was 10 out of 10 on a pain scale. level that patient reports is acceptable is 7 out of 10 on a pain scale. Quality of pain is described as burning, aching, sharp, stabbing, Pain began 1 day ago. Is continuous. 15:51 Neuro: No deficits noted. Level of Consciousness is awake, alert, obeys commands, kg Oriented to person, place, time, situation. Cardiovascular: No deficits noted. Heart tones S1 S2. Respiratory: No deficits noted. Breath sounds are clear bilaterally. GI: Reports lower abdominal pain, diarrhea, nausea. : No deficits noted. EENT: No deficits noted. Derm: No deficits noted. Musculoskeletal: No deficits noted. 19:00 Reassessment: Patient appears in no apparent distress at this time. Patient and/or jb4 family updated on plan of care and expected duration. Pain level reassessed. Patient is alert, oriented x 3, equal unlabored respirations, skin warm/dry/pink. PT refused urine dip and EKG. 19:45 Reassessment: Patient appears in no apparent distress at this time. Patient and/or jb4 family updated on plan of care and expected duration. Pain level reassessed. Patient is alert, oriented x 3, equal unlabored respirations, skin warm/dry/pink. Vital Signs: 15:46 Weight 70.76 kg; Height 5 ft. 2 in. (157.48 cm); Pain 9/10; sv 15:46 Temp 97.8; sv 15:50 BP 95 / 81; Pulse 93; Resp 20; Pulse Ox 94% on R/A; Pain 9/10; kg 16:50 BP 99 / 74; Pulse 83; Resp 20; Pulse Ox 94% on R/A; kg 19:45 BP 106 / 78; Pulse 84; Resp 16; Pulse Ox 98% on R/A; jb4 15:46 Body Mass Index 28.53 (70.76 kg, 157.48 cm) sv ED Course: 15:22 Patient arrived in ED. ds1 15:42 Jorge Alberto Cooley MD is Attending Physician. no 15:46 Jeanette Guajardo is Primary Nurse. kg 15:47 Triage completed. sv 15:48 Arm band placed on. sv 16:26 XRAY Chest (1 view) In Process Unspecified. EDMS 16:55 Inserted saline lock: 18 gauge in left EJ, using aseptic technique. kg 16:[address] Cooley using aseptic technique. kg 18:27 CBC with Diff Sent. sv 18:27 LFT's Sent. sv 18:27 Basic Metabolic Panel Sent. sv 18:57 CT Abd/Pelvis - PO and IV Contrast In Process Unspecified. EDMS 19:00 Patient has correct armband on for positive identification. Bed in low position. Call jb4 light in reach. Side rails up X 1. 19:07 Report given to Leo. kg 19:26 Addis Mora MD is Referral Physician. no Administered Medications: 16:58 Not Given (Duplicate Order): Solu-CORTEF (hyrdoCORTISONE) 100 mg IVP once on 17:23 Drug: Flagyl (metroNIDAZOLE) 500 mg Volume: 100 ml; Route: IVPB; Rate: 200 ml/hr; kg Infused Over: 30 mins; Site: right jugular; 17:56 Follow up: Response: No adverse reaction kg 17:23 Drug: SOLU-Medrol (methylPrednisoLONE) 125 mg Route: IVP; Site: right jugular; kg 17:56 Follow up: Response: No adverse reaction kg 17:24 Drug: ProTONIX (pantoprazole) 40 mg Route: IVP; Site: right jugular; kg 17:57 Follow up: Response: No adverse reaction kg 17:24 Drug: morphine 4 mg Route: IVP; Site: right jugular; kg 17:57 Follow up: Response: No adverse reaction kg 17:57 Follow up: Response: No adverse reaction; Pain is unchanged, physician notified kg 17:24 Drug: Rocephin (cefTRIAXone) 1 grams Route: IV; Rate: per protocol; Site: right jugular;kg 17:56 Follow up: Response: No adverse reaction kg 17:25 Drug: NS 0.9% 1000 ml Route: IV; Rate: 1 bolus; Site: right jugular; kg 17:45 Drug: Dilaudid (HYDROmorphone) 1 mg Route: IVP; Site: right jugular; kg 19:06 Not Given (Ordered incorrectly): Dilaudid (HYDROmorphone) 1 mg IM once; RASS on ADMIN: kg Combtv4, Very Agttd3, Agttd2, Rstlss1, AlertClm0, Drwsy-1, Lt Sdtn-2, Mod Sdtn-3, Dp Sdtn-4, UnArsble-5 19:06 Drug: Dilaudid (HYDROmorphone) 1 mg Route: IVP; Site: right jugular; kg 19:30 Follow up: Response: No adverse reaction; Marked relief of symptoms; Pain is decreased; alyce RASS: Alert and Calm (0) Outcome: 19:27 Discharge ordered by MD. sarabia 20:07 Discharged to home ambulatory. alyce 20:07 Condition: stable 20:07 Discharge instructions given to patient, Instructed on discharge instructions, follow up and referral plans. medication usage, Demonstrated understanding of instructions, follow-up care, medications, Prescriptions given X 5 20:07 Patient left the ED. alyce Signatures: Dispatcher [employer] EDPricila Rodríguez, RN RN Jorge Alberto Florian MD MD cha Sanford, Demi ds1 Yves Rajput RN RN jb4 Jeanette Guajardo kg Corrections: (The following items were deleted from the chart) 17:37 17:35 Inserted saline lock: 18 gauge in left EJ, using aseptic technique. kg kg
--- NOTE | 2020-09-10 19:28 | EDPHYS ---
Physician Documentation [facility] Name: Angela Rodriguez Age: 49 yrs Sex: Female : 1970 Arrival Date: 09/10/2020 Time: 15:22 Bed 6 Private MD: Jorge Alberto Toussaint HPI: 09/10 16:04 This 49 yrs old Female presents to ER via Ambulatory with complaints of no Crohns Flare Up. 16:04 The patient presents with abdominal pain in the upper abdomen, in the lower abdomen, no abdominal distention in the upper abdomen, in the lower abdomen. Onset: The symptoms/episode began/occurred 2 day(s) ago. The patient presents to the emergency department with nausea, vomiting, abdominal pain, of the right upper quadrant, left upper quadrant, right lower quadrant and left lower quadrant. Onset: The symptoms/episode began/occurred 2 day(s) ago. Possible causes: unknown, flare up of bowel problem, Crohn's disease. The symptoms are aggravated by movement, pressure, food , The symptoms are alleviated by nothing. remaining still. Associated signs and symptoms: Pertinent positives: abdominal pain, nausea, vomiting. The symptoms do not radiate. Associated signs and symptoms: Pertinent positives: nausea and vomiting, vomiting. The symptoms are described as constant, crampy. Modifying factors: The symptoms are alleviated by nothing, the symptoms are aggravated by food, jumping, pressure, vomiting. 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 - Social history:: Smoking status: Patient denies any tobacco usage or history of. - Family history:: not pertinent. ROS: 16:04 Constitutional: Negative for fever, chills, and weight loss, Eyes: Negative for injury, no pain, redness, and discharge, ENT: Negative for injury, pain, and discharge, Neck: Negative for injury, pain, and swelling, Cardiovascular: Negative for chest pain, palpitations, and edema, Respiratory: Negative for shortness of breath, cough, wheezing, and pleuritic chest pain, Back: Negative for injury and pain, : Negative for injury, bleeding, discharge, and swelling, MS/Extremity: Negative for injury and deformity, Skin: Negative for injury, rash, and discoloration, Neuro: Negative for headache, weakness, numbness, tingling, and seizure, Psych: Negative for depression, anxiety, suicide ideation, homicidal ideation, and hallucinations, Allergy/Immunology: Negative for hives, rash, and allergies, Endocrine: Negative for neck swelling, polydipsia, polyuria, polyphagia, and marked weight changes, Hematologic/Lymphatic: Negative for swollen nodes, abnormal bleeding, and unusual bruising. 16:04 Abdomen/GI: Positive for abdominal pain, nausea and vomiting, of the right upper quadrant, left upper quadrant, right lower quadrant and left lower quadrant. Exam: 16:04 Constitutional: This is a well developed, well nourished patient who is awake, alert, no and in no acute distress. Head/Face: Normocephalic, atraumatic. Eyes: Pupils equal round and reactive to light, extra-ocular motions intact. Lids and lashes normal. Conjunctiva and sclera are non-icteric and not injected. Cornea within normal limits. Periorbital areas with no swelling, redness, or edema. ENT: Nares patent. No nasal discharge, no septal abnormalities noted. Tympanic membranes are normal and external auditory canals are clear. Oropharynx with no redness, swelling, or masses, exudates, or evidence of obstruction, uvula midline. Mucous membranes moist. Neck: Trachea midline, no thyromegaly or masses palpated, and no cervical lymphadenopathy. Supple, full range of motion without nuchal rigidity, or vertebral point tenderness. No Meningismus. Chest/axilla: Normal chest wall appearance and motion. Nontender with no deformity. No lesions are appreciated. Cardiovascular: Regular rate and rhythm with a normal S1 and S2. No gallops, murmurs, or rubs. Normal PMI, no JVD. No pulse deficits. Respiratory: Lungs have equal breath sounds bilaterally, clear to auscultation and percussion. No rales, rhonchi or wheezes noted. No increased work of breathing, no retractions or nasal flaring. Back: No spinal tenderness. No costovertebral tenderness. Full range of motion. Skin: Warm, dry with normal turgor. Normal color with no rashes, no lesions, and no evidence of cellulitis. MS/ Extremity: Pulses equal, no cyanosis. Neurovascular intact. Full, normal range of motion. Neuro: Awake and alert, GCS 15, oriented to person, place, time, and situation. Cranial nerves II-XII grossly intact. Motor strength 5/5 in all extremities. Sensory grossly intact. Cerebellar exam normal. Normal gait. 16:04 Abdomen/GI: Inspection: distension, Bowel sounds: normal, Palpation: moderate abdominal tenderness, in the right upper quadrant, left upper quadrant, right lower quadrant and left lower quadrant, Liver: no appreciated palpable abnormalities, Hernia: not appreciated. Vital Signs: 15:46 Weight 70.76 kg; Height 5 ft. 2 in. (157.48 cm); Pain 9/10; sv 15:46 Temp 97.8; sv 15:50 BP 95 / 81; Pulse 93; Resp 20; Pulse Ox 94% on R/A; Pain 9/10; kg 16:50 BP 99 / 74; Pulse 83; Resp 20; Pulse Ox 94% on R/A; kg 19:45 BP 106 / 78; Pulse 84; Resp 16; Pulse Ox 98% on R/A; jb4 15:46 Body Mass Index 28.53 (70.76 kg, 157.48 cm) sv Procedures: 17:01 Peripheral line: by aseptic technique a peripheral line was placed in the right [facility] external jugular vein. MDM: 15:42 Patient medically screened. [facility] 16:08 Differential diagnosis: Nonspecific abd pain, gastritis, diverticulitis, viral [facility] gastroenteritis, gastroenteritis, appendicitis, bowel obstruction, cholecystitis, Cholelithiasis, gastroesophageal reflux disease, non-specific abd pain, pancreatitis, Peptic Ulcer Disease, Pyelonephritis, urinary tract infection. Data reviewed: vital signs, nurses notes, lab test result(s), EKG, radiologic studies, CT scan, plain films. Data interpreted: Pulse oximetry: on room air is 94 %. Test interpretation: by ED physician or midlevel provider: plain radiologic studies. Counseling: I had a detailed discussion with the patient and/or guardian regarding: the historical points, exam findings, and any diagnostic results supporting the discharge/admit diagnosis, lab results, radiology results. 09/10 15:51 Order name: Basic Metabolic Panel [facility] 09/10 15:51 Order name: CBC with Diff [facility] 09/10 15:51 Order name: LFT's [facility] 09/10 15:51 Order name: Magnesium; Complete Time: 18:31 [facility] 09/10 15:51 Order name: NT PRO-BNP; Complete Time: 18:31 [facility] 09/10 15:51 Order name: PT-INR; Complete Time: 18:31 [facility] 09/10 15:51 Order name: Troponin (emerg Dept Use Only); Complete Time: 18:31 [facility] 09/10 15:51 Order name: XRAY Chest (1 view); Complete Time: 17:39 [facility] 09/10 15:51 Order name: Lipase; Complete Time: 18:31 [facility] 09/10 15:51 Order name: CT Abd/Pelvis - PO and IV Contrast; Complete Time: 19:14 [facility] 09/10 15:53 Order name: Basic Metabolic Panel; Complete Time: 18:31 [facility] 09/10 15:53 Order name: CBC with Automated Diff; Complete Time: 17:39 [facility] 09/10 15:53 Order name: Liver (Hepatic) Function; Complete Time: 18:31 [facility] 09/10 18:34 Order name: COVID-19 : Document "Date of Symptom Onset" if Symptomatic. [facility] 09/10 15:51 Order name: EKG; Complete Time: 15:54 [facility] 09/10 15:51 Order name: Cardiac monitoring; Complete Time: 19:27 [facility] 09/10 15:51 Order name: EKG - Nurse/Tech; Complete Time: 19:27 [facility] 09/10 15:51 Order name: IV Saline Lock; Complete Time: 19:27 [facility] 09/10 15:51 Order name: Labs collected and sent; Complete Time: 19:27 [facility] 09/10 15:51 Order name: O2 Per Protocol; Complete Time: 19:27 [facility] 09/10 15:51 Order name: O2 Sat Monitoring; Complete Time: 19:27 [facility] Administered Medications: 16:58 Not Given (Duplicate Order): Solu-CORTEF (hyrdoCORTISONE) 100 mg IVP once [facility] 17:23 Drug: Flagyl (metroNIDAZOLE) 500 mg Volume: 100 ml; Route: IVPB; Rate: 200 ml/hr; kg Infused Over: 30 mins; Site: right jugular; 17:56 Follow up: Response: No adverse reaction kg 17:23 Drug: SOLU-Medrol (methylPrednisoLONE) 125 mg Route: IVP; Site: right jugular; kg 17:56 Follow up: Response: No adverse reaction kg 17:24 Drug: ProTONIX (pantoprazole) 40 mg Route: IVP; Site: right jugular; kg 17:57 Follow up: Response: No adverse reaction kg 17:24 Drug: morphine 4 mg Route: IVP; Site: right jugular; kg 17:57 Follow up: Response: No adverse reaction kg 17:57 Follow up: Response: No adverse reaction; Pain is unchanged, physician notified kg 17:24 Drug: Rocephin (cefTRIAXone) 1 grams Route: IV; Rate: per protocol; Site: right jugular;kg 17:56 Follow up: Response: No adverse reaction kg 17:25 Drug: NS 0.9% 1000 ml Route: IV; Rate: 1 bolus; Site: right jugular; kg 17:45 Drug: Dilaudid (HYDROmorphone) 1 mg Route: IVP; Site: right jugular; kg 19:06 Not Given (Ordered incorrectly): Dilaudid (HYDROmorphone) 1 mg IM once; RASS on ADMIN: kg Combtv4, Very Agttd3, Agttd2, Rstlss1, AlertClm0, Drwsy-1, Lt Sdtn-2, Mod Sdtn-3, Dp Sdtn-4, UnArsble-5 19:06 Drug: Dilaudid (HYDROmorphone) 1 mg Route: IVP; Site: right jugular; kg 19:30 Follow up: Response: No adverse reaction; Marked relief of symptoms; Pain is decreased; jb4 RASS: Alert and Calm (0) Disposition: 09/10/20 19:27 Discharged to Home. Impression: Crohn's disease [regional enteritis], Vomiting, Bipolar disorder, Abdominal tenderness. - Condition is Stable. - Discharge Instructions: Abdominal Pain, Adult, Crohn Disease, Bipolar Disorder, Abdominal Pain, Adult, [id number]. - Prescriptions for Diflucan 200 mg Oral tablet - take 1 tablet by ORAL route once daily; 2 tablet. Bentyl 20 mg Oral Tablet - take 1 tablet by ORAL route every 6 hours As needed; 20 tablet. Flagyl 500 mg Oral Tablet - take 1 tablet by ORAL route every 8 hours for 7 days; 21 tablet. Zofran 4 mg Oral Tablet - take 1 tablet by ORAL route every 12 hours As needed; 20 tablet. Bactrim DS 800- 160 mg Oral Tablet - take 1 tablet by ORAL route every 12 hours for 7 days; 14 tablet. - Medication Reconciliation Form, Thank You Letter, Antibiotic Education, Prescription Opioid Use form. - Follow up: Private Physician; When: 2 - 3 days; Reason: Recheck today's complaints, Continuance of care, Re-evaluation by your physician. Follow up: Addis Mora MD; When: 2 - 3 days; Reason: Recheck today's complaints, Continuance of care, Re-evaluation by your physician. - Problem is new. - Symptoms have improved. Signatures: Dispatcher [employer] Pricila Atkins, RN Jorge Alberto Longoria MD MD cha Bryson, James, RN RN jb4 Jeanette Guajardo kg Corrections: (The following items were deleted from the chart) 20:03 15:51 Urine Dipstick-Ancillary ordered. no mead 20:07 19:27 09/10/2020 19:27 Discharged to Home. Impression: Crohn's disease [regional jb4 enteritis]; Vomiting; Bipolar disorder; Abdominal tenderness. Condition is Stable. Forms are Medication Reconciliation Form, Thank You Letter, Antibiotic Education, Prescription Opioid Use. Follow up: Private Physician; When: 2 - 3 days; Reason: Recheck today's complaints, Continuance of care, Re-evaluation by your physician. Follow up: Addis Mora; When: 2 - 3 days; Reason: Recheck today's complaints, Continuance of care, Re-evaluation by your physician. Problem is new. Symptoms have improved. no
[2020-09-10 20:48] VITALS: TEMP 97.8
[2020-09-10 20:52] VITALS: BP 106/78; O2SAT 98
== END 2020-09-10 20:07 | disposition home or self-care (01) ==
LOC: ER 15:18
DX: K50.90 Crohn's disease, unspecified, without complications (principal); R11.10 Vomiting, unspecified; F31.9 Bipolar disorder, unspecified; Z88.1 Allergy status to other antibiotic agents; Z88.8 Allergy status to other drugs, medicaments and biological substances
CPT/HCPCS: 85025; 80048; 36415; 83735; 85610; 80076; 84484; 83690; 83880; 74177; 71045; 96375; 96374; 99284; Q9967; C9113; J1170 ×2; J0696; J7030; J2930; J2405

== ENCOUNTER 2021-07-04 21:33 | Emergency (ER) | payer OTHER ==
--- OUTSIDE RECORDS SUMMARY | 2021-07-04 21:53 | XMS REPORT | Continuity of Care Document ---
:1970 Author Organization [facility] t Address [address] [place] [address] Care Team Providers Name Role Phone SONIA RETANA Primary Care Physician Unavailable NISH Attending Clinician Unavailable DR SHAILESH Attending Clinician Unavailable LILY_ADAM Attending Clinician Unavailable Vivek Attending Clinician Unavailable Priti FIELDS Attending Clinician Unavailable Brenda Lei MD Attending Clinician Pooja Forbes MD Attending Clinician Paul Drake NP Attending Clinician Chema Dodson MD Attending Clinician 1.5, Jase Beck Attending Clinician Unavailable CHEMA DODSON Attending Clinician Unavailable Lynne Lopez Attending Clinician Lynne LOPEZ Attending Clinician Unavailable Fabian Attending Clinician Unavailable NISH Attending Clinician Unavailable Guillermina Jerry MA Attending Clinician Unavailable Moose RADER Attending Clinician Gilson VERA Attending Clinician Unavailable Adryan VERA Attending Clinician Unavailable Nish MOTLEY Attending Clinician CHEMA DODSON Attending Clinician Unavailable Elle Attending Clinician Unavailable Giacomo Attending Clinician Unavailable Yessy Attending Clinician Unavailable Jaime MOTLEY Attending Clinician Jessenia Morley MD Attending Clinician Jessenia MORLEY Attending Clinician Unavailable Glenn Attending Clinician Unavailable Zuri Dalal MD Attending Clinician Javon MOTLEY Attending Clinician Nish MOTLEY Attending Clinician Laney Daniels MD Attending Clinician AGBRIELA GAY Attending Clinician Unavailable JAVON Attending Clinician Unavailable Jocelyn DICKINSON Attending Clinician Unavailable KARLEESEVarsha ALEJANDRO-AHMED Attending Clinician Unavailable ALEJANDRO, - Attending Clinician Unavailable MOOK Attending Clinician Unavailable NISH Admitting Clinician Unavailable DR SHAILESH Admitting Clinician Unavailable AMBCHRIS_ADAM Admitting Clinician Unavailable Vievk Admitting Clinician Unavailable DO Admitting Clinician Unavailable Bryan_Allie Admitting Clinician Unavailable Giacomo Admitting Clinician Unavailable Yessy Admitting Clinician Unavailable Glenn Admitting Clinician Unavailable GABRIELA GAY Admitting Clinician Unavailable JAVON Admitting Clinician Unavailable Laney GARCIA Admitting Clinician Unavailable ADDIS ALEJANDRO-AHMED Admitting Clinician Unavailable AHBLADIMIR, - Admitting Clinician Unavailable TRUONGI Admitting Clinician Unavailable Payers Payer Name Policy Type Policy Number Effective Date Expiration Date S ourmargret HUMANA MEDICARE ADV [id number] 2019 00:00:00 MEDICAID [facility] [id number] 2017 2017 00:00:00 00:00:00 MEDICARE A B [id number] 2005 2018 00:00:00 00:00:00 MEDICAID DIAZ [id number] 2017 00:00:00 [facility] POS [id number] 2020 SELECT CHOICE 00:00:00 [facility] - [id number] DUAL COMPLETE RP - DUAL ELIGIBLE - REGIONAL PPO - SNP (MEDICARE - MEDICAID REPLACEMENT PPO) [facility] [id number] 2016 [facility] (MEDICAID 00:00:00 HMO) [place] A-[place]: [id number] 2005 [employer] - 00:00:00 [facility] [id number] (MEDICARE REPLACEMENT/ADVANTA GE - PPO) [employer] DUAL [id number] COMPLETE SNP PPO-[facility]-MEDICAID - [id number] MEDICAID HMO - HUMANA [id number] 2019 2019 HEALTHCARE 00:00:00 00:00:00 MEDICARE PART A \\T\\ [id number] B - MEDICARE ZZZ-STAR PLUS [id number] 2011 00:00:00 [facility] [id number] 2018 2018 00:00:00 00:00:00 [facility] [id number] 2020 [employer] [place] 00:00:00 (MEDICAID H[place]) [place] [id number] [place] [facility] [id number] [facility] [id number] HUMANA (MEDICARE [id number] REPLACEMENT/ADVANTA GE - PPO) HUMANA (PPO) [id number] MEDICARE B-[place]: [id number] 2005 [employer] 00:00:00 [facility] [id number] 2017 [facility] 00:00:00 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 [id number] 2019 00:00:00 MED[place] [id number] 2017 00:00:00 Problems Condition Condition Condition Status Onset Resolution Last Treating Co mments Source Name Details Category Date Date Treatment Clinician Date Anxiety Anxiety Problem Active 2020-05 [facility] 2-29 da 00:00: Medical Group Osteoporos Osteoporos Problem Active 2020-05 M [facility] is is 2-29 da 00:00: Medical 00 Group Body mass Body Mass Problem Active [facility] index 30+ Index 30+ 9-28 da - obesity - Obesity 00:00: Medi payam 00 Group COVID-19 Covid-19 Problem Active [place] 9-27 da 00:00: Medical 00 Group Chronic Chronic Disease Active [facility] cystitis cystitis 9 Colleg e without without 00:00: of hematuria hematuria 00 Medi marlene e Crohn's Crohn's Disease Active [facility] disease, disease, 9 Colleg e unspecifie unspecifie 00:00: of d, without d, without 00 Me dicin complicati complicati e ons ons (HCCode) (HCCode) Acute Acute Problem Active [place] urinary Urinary 8-02 da tract Tract 00:00: Medical infection Infection 00 Grou p [id number], Diagnosis Active 2020-08-04 Mem oria M25.561, 3-15 16:47:[place] [address], 00:00: Markus RIGHT KNEE M25.561, 00 PAIN IN RIGHT KNEE Active 07/13/2020 [facility] M17.12 - Diagnosis Active 2020-05-11 M emoria UNILATERAL 1-04 10:01:00 l PRIMARY M17.12 - 00:00: Prachi nn OSTEOARTHR UNILATERAL 00 IT PRIMARY OSTEOARTHR IT Active [facility] Avascular Avascular Problem Active 2019-05 [facility] necrosis Necrosis 0-13 da of bone of Bone 00:00: Medical 00 Group Lack or Lack or Problem Active [place] loss of Loss of 9-18 da sexual Sexual 00:00: Medical desire Desire 00 Group Dyspareuni Dyspareuni Problem Active [facility] a a 9-18 da 00:00: Medical 00 Group Menopausal Menopausal Problem Active M [facility] syndrome Syndrome 9-18 da 00:00: Medical 00 Group Localized Localized Disease Active [facility] osteoporos osteoporos 6-08 st is without is without 00:00: Ho spita current current 00 l pathologic pathologic al al fracture fracture Ventral Ventral Disease Active [facility] incisional incisional 3-12 Co llege hernia hernia 00:00: of 00 Medicin e Peripheral Peripheral Problem Active M [facility] nerve Nerve 1-08 da disease Disease 00:00: Medical 00 Group Low serum Low serum Disease Active 2018-05 [facility] cortisol cortisol 0-16 st level level 00:00: Hospita 00 l Pruritus Pruritus Problem Active 2018-05 [place] [...] Active M [facility] s of s of 9 da vagina Vagina 00:00: Medical 00 Group Postsurgic Postsurgic Problem Active M [facility] al al 9 da menopause Menopause 00:00: Medi payma 00 Group Acute Acute Problem Active [facility] cystitis Cystitis 8-30 da 00:00: Medical 00 Group Urinary Urinary Problem Active [place] tract Tract 8-19 da infectious Infectious 00:00: Me dical disease Disease 00 Group Persistent Persistent Problem Active M [facility] insomnia Insomnia 8- da 00:00: Medical 00 Group Bur[facility] Golden's Problem Active [facility] disease Disease 7 da 00:00: Medical 00 Group Abdominal Abdominal Disease Active [facility] Skin tag Skin Tag Problem Active [facility] [facility] 6-19 da 00:00: Medical 00 Group Crohn's Crohn's Disease Active [facility] disease of disease of 506 Co llege both small both small 00:00: of and large and large 00 Medi marlene intestine intestine e with other with other complicati complicati on on History of History of Disease Active [facility] immunosupp immunosupp 06 Co llege ression ression 00:00: of therapy therapy 00 Medicin e Medication Medication Disease Active [facility] monitoring monitoring 09-03 Co llege encounter encounter 00:00: of 00 Medicin e Intestinal Intestinal Disease Active [facility] malabsorpt malabsorpt 09-03 Co llege ion ion 00:00: of 00 Medicin e Small Small Disease Active [facility] bowel bowel 09-03 [place] obstructio obstructio 00:00: of n (HCCode) n (HCCode) 00 Me dicin e History of History of Disease Active [facility] Clostridiu Clostridiu 09-03 Co llege m m 00:00: of difficile difficile 00 Medi marlene infection infection e Chronic Chronic Disease Active [facility] abdominal abdominal 09-03 [facility] pain pain 00:00: of 00 Medicin e Macrocytic Macrocytic Disease Active [facility] anemia anemia 09-03 [place] 00:00: of 00 Medicin e Osteopenia Osteopenia Disease Active [facility] 06 [place] 00:00: of 00 Medicin e Heavy Heavy Disease Active [facility] smoker smoker 09-03 [place] 00:00: of 00 Medicin e Chronic Chronic Problem Active [place] pain Pain [...] pain 00 Center Crohn's Crohn's Disease Active [facility] disease disease 3-08 [facility] 00:[facility] 00 Center SBO (small SBO (small Disease Active [facility] bowel bowel 3-08 [facility] - obstructio obstructio 00:00: Me dical n) n) 00 Center Anxiety Anxiety Problem Active [place] disorder Disorder 6-25 da 00:[facility] Endometrio Endometrio Problem Active M [facility] sis sis 6-25 da (clinical) (Clinical) 00:00: [facility] Abdominal Abdominal Disease Active [facility] pain pain 4-21 st 00:00: Hospita 00 l Small Small Disease Active [facility] bowel bowel 4-16 st obstructio obstructio 00:00: Ho spita n n 00 l Colitis Colitis Disease Active [facility] presumed presumed 3-21 st infectious infectious 00:00: Ho spita 00 l Clostridiu Problem Active 2020-08-10 M emoria m 10-10 06:24:10 l difficile 00:00: [place] (organism) Clostridiu 00 m difficile (organism) Active 10/10/2016 Problem 08/10/2020 Stool 10/10/2016 Problem added by Discern Expert. [facility] ABDOMINAL Diagnosis Active 2016-10-18 Memoria PAIN 611 07:22:00 l 00:00: [place] ABDOMINAL 00 PAIN Active 10/09/2016 [facility] INSECT Diagnosis Active 2015-052016-02-10 Mem oria BITE 0-08 16:26:00 l INSECT 08:00: [place] BITE 00 Active 02/06/2016 [facility] VOMITING Diagnosis Active 2014-08-13 M emoria 4-15 08:22:00 l VOMITING 00:00: Sony n 00 Active 08/13/2014 [facility] DIARRHEA Diagnosis Active 2014-01-14 M emoria 9-16 08:28:00 l DIARRHEA 05:00: Sony n 00 Active 01/14/2014 [facility] HEAT Diagnosis Active 2013-12-10 Mem oria EXPOSURE 11-22 08:48:00 l HEAT 00:00: Markus EXPOSURE 00 Active 11/22/2013 [facility] Mixed Problem Active 2020-08-10 Memor ia anxiety 4-07 06:24:10 l and Mixed 00:00: Markus depressive anxiety 00 disorder and (disorder) depressive disorder (disorder) Active 08/05/2013 Problem 08/10/2020 Data migrated from [employer] on 09/27/14. [facility], [facility], [facility] Long-term Problem Active 2012-052020-08-10 Me moria drug 0-04 06:24:10 l therapy 00:00: Markus (procedure Long-term 00 ) drug therapy (procedure ) Active 02/01/2013 Problem 08/10/2020 Data migrated from [employer] on 09/27/14. [facility], [facility], [facility] Hypothyroi Problem Resolve 2020-08-10 Memoria dism d 06:24:10 l (disorder) Sony n Hypothyroi dism (disorder) Resolved Problem 08/10/2020 [facility], [facility], [facility] Abdominal Problem Resolve 2016-02-13 M emoria structure d 03:41:05 l (body [place] structure) Abdominal structure (body structure) Resolved Problem 02/13/2016 [facility], [facility], [facility] Colitis Problem Active 2020-08-10 Isreal adiel (disorder) 06:24:10 l Colitis [place] (disorder) Active Problem 08/10/2020 [facility], [facility], [facility], [facility] Osteoarthr Problem Active 2020-08-10 M emoria itis 06:24:10 l (disorder) Sony n Osteoarthr itis (disorder) Active Problem 08/10/2020 [facility] Pain Problem Active 2020-08-10 Memor ia (finding) 06:24:10 l Pain [place] (finding) Active Problem 08/10/2020 [facility], [facility], [facility], [facility] Panic Panic Problem Active [facility] disorder Disorder da without without [facility] Generalize Generalize Problem Active M at[facility] d anxiety d Anxiety da disorder Disorder [facility] History of Past Illness Condition Condition Condition Status Onset Resolution Last Treating Co mments Source Name Details Category Date Date Treatment Clinician Date Unspecifie Problem 2016-052017-02-21 2017-02-21 Memoria d 0-21 01:25:53 01:25:53 l abdominal 05:00: Markus pain Unspecifie 00 d abdominal pain 02/18/2017 02/21/2017 [facility] Discharge Problem 2015-052016-02-13 2016-02-13 Memoria Diagnosis: 0-12 03:41:05 03:41:05 l Erythema 05:00: Markus nodosum Discharge 00 Diagnosis: Erythema nodosum 02/10/2016 02/13/2016 [facility] Discharge Problem 2014-2014-08-16 2014-08-16 Memoria Diagnosis: - 08:06:50 08:06:50 l Diarrhea 05:00: Markus Discharge 00 Diagnosis: Diarrhea 5 08/16/2014 [facility] Discharge Problem 2014-08-16 2014-08-16 Memoria Diagnosis: 08-13 08:06:50 08:06:50 l Hypokalemi 05:00: Sony n a Discharge 00 Diagnosis: Hypokalemi a 08/13/2014 08/16/2014 [facility] Discharge Problem 2013-052014-03-11 2014-03-11 Memoria Diagnosis: 05-09 21:37:50 21:37:50 l Abdominal 06:00: Markus pain Discharge 00 Diagnosis: Abdominal pain 03/09/2014 03/11/2014 [facility] Discharge Problem 2013-052014-03-11 2014-03-11 Memoria Diagnosis: 05-09 21:37:50 21:37:50 l UTI 06:00: Markus (urinary Discharge 00 tract Diagnosis: infection) UTI (urinary tract infection) 03/09/2014 03/11/2014 [facility] Discharge Problem 2013-052014-03-11 2014-03-11 Memoria Diagnosis: 05-09 21:37:50 21:37:50 l Vomiting 06:00: Markus Discharge 00 Diagnosis: Vomiting 4 03/11/2014 [facility] Discharge Problem 2014-01-17 2014-01-17 Memoria Diagnosis: 01-14 04:54:49 04:54:49 l UTI (lower 05:00: Sony n urinary Discharge 00 tract Diagnosis: infection) UTI (lower urinary tract infection) 01/14/2014 01/17/2014 [facility] Allergies, Adverse Reactions, Alerts Allergy Allergy Status Severity Reaction(s) Onset Inactive Treating Comm ents Source Name Type Date Date Clinician Morphine Propensi Active Other (See Pt states Methodi ty to Comments) 1-[address] adverse 00:00: doesn't Hospita reaction 00 work per l s to pt drug Morphine Drug Active Other (See Patient [facility] Allergy Comments) 08-17 said does Mirtha es - 00:00: not work Medical 00 for her. Center Morphine Allergy Active [place] to 4-19 da substanc 00:00: Medical e 00 Group Morphine Propensi Active Mild Other [facility] ty to 08-17 reaction( College adverse 00:00: s): Other of reaction 00 (See Medicin s to Comments) e drug Patient said does not work for her. MORPHINE Allergy Active Low Other [facility] 419 00:00: 00 Prometha Drug Active Other (See Makes [facility] zine Allergy Comments) 308 mouth/jaw Mirtha es - 00:00: twitch/je Medical 00 rk Center Prometha Allergy Active [place] zine to 3-08 da substanc 00:00: Medical e 00 Group PROMETHA Allergy Active Med Other [facility] ZINE 3-08 00:00: 00 Remeron Allergy Active Other [place] to 7-30 da substanc 00:00: [facility] CIPROFLO DRUG Active High Anaphylaxis Uni vers XACIN INGREDI -12 ity of 00:00: [place] 00 [facility] Branch PROMETHA DRUG Active High Anaphylaxis Uni vers ZINE HCL INGREDI 7-12 ity of 00:00: [address] Branch Ciproflo Propensi Active Swelling Meth deepti xacin ty to 3-20 st adverse 00:00: Hospita reaction 00 l s to drug Prometha Propensi Active Other (See Face Me thodi zine ty to Comments) [address] adverse 00:00: Hospita reaction 00 l s to drug ciproflo ciproflo Active 2012-05 Memori a xacin xacin 0-04 l 05:00: Markus Phenerga Phenerga Active 2012-05 Memori a n<sup>2< n<sup>2< 0-04 l /sup> /sup> 05:00: Markus 00 Ciproflo Drug Active Swelling, Makes [facility] t xacin Allergy Anaphylaxis, 6-26 tongue Mirtha es - Hives 00:00: [facility] 00 Center Prometha Propensi Active Anaphylaxis, Muscle [facility] zine Hcl ty to Other (See 10-24 javad Fu[facility] - adverse Comments) 00:00: Medica l reaction 00 Center s Ciproflo Allergy Active Severe, Anaphylaxis, [place] xacin to Severe, Hives, 10-24 da substanc Severe Swelling 00:00: Medica l e 00 Group Ciproflo Propensi Active Swelling [facility] xacin ty to 10-24 College adverse 00:00: of reaction 00 Medicin s to e drug Prometha Propensi Active Other (See Muscle [facility] zine Hcl ty to Comments) 10-24 tw[facility] adverse 00:00: of reaction 00 Medicin s to e drug CIPROFLO Allergy Active High Swelling [facility] XACIN 10-24 00:00: 00 PROMETHA Allergy Active High Anaphylaxis SL [facility] ZINE HCL 10-24 00:00: 00 Cipro Allergy Active Severe Other [place] to da substan Medical e Group Phenerga Allergy Active Moderate Facial [place] n to swelling da substan Medical e Group Trazodon Allergy Active Hives [place] e to da substan [facility] Family History Family Member Diagnosis Comments Start Date Stop Date Source Maternal grandfather Cancer [facility] Maternal grandfather Cancer [facility] Maternal grandmother Dementia [facility] Maternal grandmother Endometriosis [facility] Maternal uncle Suicidality [facility] Natural mother Endometriosis [facility] Natural mother Other [facility] Natural father [facility] Social History Social Habit Start Date Stop Date Quantity Comments Source History of tobacco Cigarette Smoker [facility] Exposure to Not sure [facility] SARS-CoV-2 (event) Hospit al History SDOH [facility] - Alcohol Std Drinks Medica l Center History SDOH [facility] - Alcohol Binge Medical [place] [facility] History SDOH [facility] - Alcohol Comment Medical C enter Alcohol intake 2021-05-25 2021-05-25 Current [facility] 00:00:00 00:00:00 non-drinker of Hospital alcohol (finding) Tobacco Comment 2020-01-29 2020-01-29 On chantix now. I Me thodist 00:00:00 00:00:00 have to stop. Hospital Cigarettes smoked 2018-12-24 2018-12-24 [facility] current (pack per 00:00:00 00:00:00 Hospita l day) - Reported Tobacco use and 2018-12-24 2018-12-24 Smokeless tobacco Me thodist exposure 00:00:00 00:00:00 non-user Hospital Cigarette 2018-07-06 2018-07-06 [facility] - pack-years 00:00:00 00:00:00 Medical Center History SDOH 2018-07-06 2018-07-06 1 [facility] - Alcohol Frequency 00:00:00 00:00:00 [facility] Center Social History 2014-01-14 2014-01-14 [facility] 03:02:48 03:02:48 Sex Ass[birth year] At [birth year] [facility] [address] Fuentes kes - 00:00:00 00:00:00 [facility] Center Smoking Status Start Date Stop Date Source Former Smoker [place] [facility] Heavy Tobacco Smoker [place] Smokes tobacco daily 2018-12-24 00:00:00 [facility] Medications Ordered Filled Start Stop Current Ordering Indication Dosage Frequency Signature Comments Components Source Medication Medication Date Date Medication? Clinician (SIG) Name Name clonAZEPAM Yes 1mg Take 1 mg Me thodi (KlonoPIN) 1-[address] 1 MG tablet 16:29: Hospit a 47 l zoledronic Yes Reclast 5 Me thodi acid 1-10 mg/[address] (RECLAST) 5 16:29: intravenou Hospita mg/100 mL 47 s l piggyback piggyback Inject by intravenou s route. multivitami Yes 1{tbl} Take 1 Me thodi n,tx-iron-m 1-[address] inerals 16:29: mouth. Hospita tablet 47 l baclofen Yes 20mg [id number] Take 20 mg [facility] (LIORESAL) 1-10 [id number] by mouth [address] 20 MG 16:29: 3D (three) Hospita tablet 47 times a l day. gabapentin 2021-0 Yes 600mg [id number] Take 600 [facility] (NEURONTIN) 1-10 [id number] mg by s t 600 mg 16:29: 3D mouth 3 Hospita tablet 47 (three) l times a day. estradioL 2021-0 Yes 1mg QD Take 1 mg Met hodi (ESTRACE) 1 -[address] MG tablet 16:29: daily. Hospit a 47 l pantoprazol 2021-0 2021- No 40mg QD Take 40 mg Methodi e 05-[address] (PROTONIX) 11:20: 00:00 daily. Hosp lucie 40 MG EC 13 :00 l tablet ALPRAZolam 2021- No alprazolam [facility] (XANAX) 1 05-06-[address] MG tablet 11:19: 00:00 tablet T1T H ospita 36 :00 PO QD l methocarbam 2021-0 2021- No 500mg Q6H Take 500 Methodi ol 05-[address] (ROBAXIN) 11:18: 00:00 mouth Hospit a 500 MG 28 :00 every 6 l tablet (six) hours. mesalamine 0 Yes Crohn's 2400mg Take 2,[address] (LIALDA) 1-03 disease mg by [facility]ukes - 1.2 gram EC 09:36: mouth Medic al tablet 14 daily with Center breakfast. hydroCHLORO 2021-0 Yes 25mg QD Take [address] thiazide 1-03 by mouth [facility]ukes - (MICROZIDE) 09:36: daily. Medi payam 12.5 mg 14 Center capsule TERBINAFINE 0 Yes 250mg QD Take [address] HCL ORAL 1-03 mg by [facility]ukes - 09:36: mouth Medical 14 daily. Center sucralfate 2021-0 Yes 1g Q.25D Take [address] (CARAFATE) 1-03 by mouth 4 Mirtha es - 1 gram 09:36: (four) Medical tablet 14 times Center daily. nitrofurant 2021-0 Yes 100mg Q.5D Take [address] oin, 1-03 mg by [facility]ukes - macrocrysta 09:36: mouth 2 Med ical l-monohydra 14 (two) Center te, times (MACROBID) daily. 100 MG capsule mesalamine Yes Crohn's 2400mg Take 2,[address] (LIALDA) 1-03 disease mg by [facility] - 1.2 gram EC 09:36: mouth Medic al tablet 14 daily with Center breakfast. hydroCHLORO Yes 25mg QD Take [address] thiazide 1-03 by mouth [facility]ukes - (MICROZIDE) 09:36: daily. Medi payam 12.5 mg 14 Center capsule TERBINAFINE Yes 250mg QD Take [address] HCL ORAL 1-03 mg by [facility] - 09:36: mouth Medical 14 daily. Center sucralfate Yes 1g Q.25D Take [address] (CARAFATE) 1-03 by mouth 4 Mirtha es - 1 gram 09:36: (four) Medical tablet 14 times Center daily. nitrofurant Yes 100mg Q.5D Take [address] oin, 1-03 mg by [facility] - macrocrysta 09:36: mouth 2 Med ical l-monohydra 14 (two) Center te, times (MACROBID) daily. 100 MG capsule clonazePAM 2020-05 Yes 1mg Take 1 mg Ba [facility]lor (KLONOPIN 1-12 by mouth 3 Ronny ege OR) 09:36: times of 32 daily. Medicin e busPIRone 2020-05 Yes 10mg Take 10 mg Ba ylor (BUSPAR) 10 1-12 by mouth 3 Co llege MG tablet 09:36: times of 32 daily. Medicin e estradiol 2020-05 Yes estradiol [place] esthela (ESTRACE) 1 1-12 1 mg College MG tablet 09:36: tablet of 32 Medicin e montelukast 2020-05 Yes 10mg Take 10 mg Kev (SINGULAIR) 1-12 by mouth Ronny ege 10 MG 09:36: daily. of tablet 32 Medicin e phenazopyri 2020-05 Yes 200mg Take 1 [place] esthela dine 1-12 Tablet by [place] (PYRIDIUM) 00:00: mouth 3 of 200 MG 00 times Medicin tablet daily as e needed for Pain. Ustekinumab 2020-05 Yes [id number] INJECT Kev (STELARA) 1-09 90MG [place] 90 MG/ML 00:00: SUBCUTANEO of injection 00 USLY EVERY Medi marlene 28 DAYS e Sertraline 2020- No Take by Ba ylor HCl (ZOLOFT 01-19 mouth. Colle ge OR) 15:11: 00:00 of 09 :00 Medicin e Sertraline 2020- No Take by Ba ylor HCl (ZOLOFT 01-19 mouth. Colle ge OR) 15:11: 00:00 of 09 :00 Medicin e escitalopra 2020- No 20mg Take 20 mg Kev m (LEXAPRO) 01-19 by mouth Col lege 20 MG 15:10: 00:00 daily. of tablet 33 :00 Medicin e escitalopra 2020- No 20mg Take 20 mg [facility] m (LEXAPRO) 01-19 by mouth Col lege 20 MG 15:10: 00:00 daily. of tablet 33 :00 Medicin e Mesalamine 2020- No 1.2mg Take 1.2 B a[facility]or 1.2 g TBEC 01-19 mg by [place] 15:08: 00:00 mouth of 54 :00 daily. Medicin e Mesalamine 2020- No 1.2mg Take 1.2 B a[place]or 1.2 g TBEC 01-19 mg by [place] 15:08: 00:00 mouth of 54 :00 daily. Medicin e loperamide 2020- No 2mg Take 2 mg B a[facility]or (IMMODIUM) 01-19 by mouth Ronny ege 2 MG 15:08: 00:00 daily. of capsule 35 :00 Medicin e loperamide 2020- No 2mg Take 2 mg B [facility] (IMMODIUM) 01-19 by mouth Ronny ege 2 MG 15:08: 00:00 daily. of capsule 35 :00 Medicin e raNITIdine 2020-2020- No [facility] HCl (ZANTAC 01-19 College OR) 15:08: 00:00 of 17 :00 Medicin e raNITIdine 2020- No [facility] HCl (ZANTAC 01-19 College OR) 15:08: 00:00 of 17 :00 Medicin e Sulfamethox 2020- No Take by Ravi lopez azole-Trime 01-19 mouth. Colle ge thoprim 15:07: 00:00 of (BACTRIM 49 :00 Medicin OR) e Sulfamethox 2020- No Take by Ravi lopez azole-Trime 01-19 mouth. Colle ge thoprim 15:07: 00:00 of (BACTRIM 49 :00 Medicin OR) e quetiapine 2020- No 50mg Take 50 mg Kev (SEROQUEL) 01-19 by mouth Ronny ege 50 MG 15:07: 00:00 daily. of tablet 31 :00 Medicin e quetiapine 2020- No 50mg Take 50 mg [facility] (SEROQUEL) 01-19 by mouth Ronny ege 50 MG 15:07: 00:00 daily. of tablet 31 :00 Medicin e cefUROXime 2020- No cefuroxime Kev (CEFTIN) 01-19 axetil 500 Ronny ege 500 MG 15:06: 00:00 mg tablet of tablet 48 :00 Medicin e cefUROXime 2020- No cefuroxime [facility] (CEFTIN) 01-19 axetil 500 Ronny ege 500 MG 15:06: 00:00 mg tablet of tablet 48 :00 Medicin e Nitrofurant 2020-0 Yes Take by Ba [facility]lor oin Monohyd 01-19 mouth. Colleg e Macro 14:16: of (MACROBID 37 Medicin OR) e Nitrofurant 2020-0 Yes Take by [facility] oin Monohyd - mouth. Colleg e Macro 14:16: of (MACROBID 37 Medicin OR) e clonazePAM 2020-0 Yes 1mg Take 1 mg [facility] (KLONOPIN 9-21 by mouth 3 Ronny ege OR) 14:15: times of 26 daily. Medicin e clonazePAM 2020-0 Yes 1mg Take 1 mg [facility] (KLONOPIN 9-21 by mouth 3 Ronny ege OR) 14:15: times of 26 daily. Medicin e busPIRone 0 Yes 10mg Take 10 mg [facility] (BUSPAR) 10 -21 by mouth 3 Co llege MG tablet 14:15: times of 26 daily. Medicin e estradiol Yes estradiol [place] esthela (ESTRACE) 1 - 1 mg College MG tablet 14:15: tablet of 26 Medicin e busPIRone Yes 10mg Take 10 mg [facility] (BUSPAR) 10 -21 by mouth 3 Co llege MG tablet 14:15: times of 26 daily. Medicin e montelukast Yes 10mg Take 10 mg Kev (SINGULAIR) - by mouth Ronny ege 10 MG 14:15: daily. of tablet 26 Medicin e estradiol Yes estradiol [place] esthela (ESTRACE) 1 - 1 mg College MG tablet 14:15: tablet of Medicin e montelukast Yes 10mg Take 10 mg Kev (SINGULAIR) 01-19 by mouth Ronny ege 10 MG 14:15: daily. of tablet 26 Medicin e pantoprazol 0 Yes [id number] TAKE 1 Kev e 8-05 TABLET BY [facility] (PROTONIX) 00:00: MOUTH of 40 MG 00 TWICE Medicin tablet DAILY e pantoprazol 0 Yes [id number] TAKE 1 [facility] e 8-05 TABLET BY [facility] (PROTONIX) 00:00: MOUTH of 40 MG 00 TWICE Medicin tablet DAILY e pantoprazol Yes [id number] TAKE 1 [facility] e 8-05 TABLET BY [place] (PROTONIX) 00:00: MOUTH of 40 MG 00 TWICE Medicin tablet DAILY e cholestyram 0 Yes 1{packe Take 1 B [facility] ine 6-21 t} Packet by [facility] (QUESTRAN) 00:00: mouth of 4 g packet 00 daily. Medicin e cholestyram 2020-0 Yes 1{packe Take 1 [facility] ine 6-21 t} Packet by [facility] (QUESTRAN) 00:00: mouth of 4 g packet 00 daily. Medicin e cholestyram 2020-0 2020- No 1{packe Take 1 Kev ine 6-21 11-12 t} Packet by [facility] (FLORENTIN) 00:00: 00:00 mouth of 4 g packet 00 :00 daily. Medicin e cefadroxil Yes 500 mg = 1 M emoria 500 mg oral 4-06 cap, PO, l capsule 14:00: BID, [place] 00 start medication on 08/04/20 eRx sent to pharmacy [facility][id number] [address] [place] [address] , X 7 day, # 14 cap, 0 Refill(s), called to pharmacy meloxicam Yes 15 mg = 1 Mem oria 15 mg oral 4-06 tab, PO, l tablet 14:00: Daily, Sony n 00 start medication on 08/04/20 eRx sent to pharmacy [facility] #[id number] [address] [place] [address] , # 30 tab, 0 Refill(s), called to pharmacy Aspirin 81 Yes 81 mg = 1 Me moria MG Enteric 4-06 tab, PO, l Coated 02:00: BID, [place] Tablet 00 start medication on 08/03/20 eRx sent to pharmacy [facility] #[id number] [address] [place] [address] , # 60 tab, 0 Refill(s), called to pharmacy Ustekinumab Yes [id number] INJECT [facility] (STELARA) 4-06 90MG College 90 MG/ML 00:00: SUBCUTANEO of injection 00 USLY EVERY Medi marlene 28 DAYS e Ustekinumab Yes [id number] INJECT [facility] (STELARA) 4-06 90MG College 90 MG/ML 00:00: SUBCUTANEO of injection 00 USLY EVERY Medi marlene 28 DAYS e Ondansetron Yes 4 mg = 1 Me moria 4 MG 4-05 tab, PO, l Disintegrat 22:00: Q8H, PRN He rmann ing Tablet 00 Nausea & Vomiting, allow tablet to dissolve on tongue start medication on 08/03/20 eRx sent to pharmacy [facility] #[id number] [address] [place] [address] , # 12 tab, 0 Refill(s), ... ePHEDrine No Route: IV, Me moria (ANES) 08-03 Drug form: l 12:42: INJ, ONCE, Stop date: 08/03/20 7:42:00 CDT ondansetron No Route: IV, Memoria (ANES) 08-03 Drug form: l 12:32: INJ, ONCE, Stop date: 08/03/20 7:32:00 CDT dexamethaso No Route: IV, Memoria ne (ANES) 08-03 Drug form: l 12:32: INJ, ONCE, Stop date: 08/03/20 7:32:00 CDT midazolam No Route: IV, Me moria (ANES) 08-03 Drug form: l 12:27: SOLN, Markus 00 ONCE, Stop date: 08/03/20 7:27:00 CDT lidocaine No Route: IV, Me moria (ANES) 08-03 Drug form: l 12:27: INJ, ONCE, Stop date: 08/03/20 7:27:00 CDT fentaNYL No Route: IV, Mem oria (ANES) 08-03 Drug form: l 12:27: INJ, ONCE, Stop date: 08/03/20 7:27:00 CDT propofol No Route: IV, Mem oria (ANES) 08-03 Drug form: l 12:27: INJ, ONCE, Stop date: 08/03/20 7:27:00 CDT Sodium No 500 mL, Memoria Chloride 08-03 Infuse l 0.9% 12:10: Over: 20 Markus (Bolus) IV 00 minutes, Route: IV, ONCE, Dosing Weight 77.273 kg, Start date: 08/03/20 7:10:00 CDT, Stop date: 08/03/20 7:10:00 CDT Labetalol No 10 mg, Memori a 4-05 Route: l 12:10: IVP, Markus 00 Q5Min, Dosing Weight 77.273, kg, PRN Elevated BP, Start date: 08/03/20 7:10:00 CDT, Duration: 5 doses or times, Stop date: Limited # of times Metoprolol 1-0 No 1 mg, Memori a 08-03 Route: l 12:10: IVP, Markus 00 Q5Min, Dosing Weight 77.273, kg, PRN Other -See Comment, Start date: 08/03/20 7:10:00 CDT, Duration: 5 doses or times, Stop date: Limited # of times Ketorolac 2020-0 No 30 mg, Memori a 08-03 Route: l 12:10: IVP, ONCE, Markus 00 Dosing Weight 77.273, kg, Start date: 08/03/20 7:10:00 CDT, Stop date: 08/03/20 7:10:00 CDT Hydromorpho 1-0 No 0.5 mg, Mem oria ne 08-03 Route: l 12:10: IVP, Markus 00 Q5Min, Dosing Weight 77.273, kg, PRN Pain Score 7-10, Start date: 08/03/20 7:10:00 CDT, Duration: 4 doses or times, Stop date: Limited # of times Flumazenil 2020-0 No 0.2 mg, Isreal adiel 08-03 Route: l 12:10: IVP, PRN, Dosing Weight 77.273, kg, PRN Benzodiaze pine Reversal, Initial dose, Start date: 08/03/20 7:10:00 CDT, Duration: 30 day, Stop date: 09/02/20 7:09:00 CDT Naloxone 1-0 No 0.4 mg, Memori a 08-03 Route: l 12:10: IVP, [place] 00 Q2MIN, Dosing Weight 77.273, kg, PRN Narcotic Reversal, Start date: 08/03/20 7:10:00 CDT, Duration: 8 doses or times, Stop date: Limited # of times Ondansetron 1-0 No 4 mg, Memor ia 08-03 Route: l 12:10: IVP, ONCE, Markus 00 Dosing Weight 77.273, kg, PRN Nausea & Vomiting, Start date: 08/03/20 7:10:00 CDT ceFAZolin No Route: IV, Me moria (ANES) 1000 08-03 Drug form: l mg 11:55: INJ, Start Markus date: 08/03/20 6:55:00 CDT, Stop date: 08/03/20 7:55:00 CDT Lactated No Route: IV, Mem oria Ringers -05 Total l Injection 11:43: Volume: Prachi nn IV (ANES) 00 1,000, 1000 mL Start date: 08/03/20 6:43:00 CDT, Stop date: 08/03/20 7:43:00 CDT ceFAZolin + No Notes: Isreal adiel sterile 4- (Same As: l water 20 mL 04:00: Ancef, Herm chelsey Kefzol) MEDICATION WASTE Product Size: 1000 mg Product Wasted: ___ mg Famotidine No Notes: Memor ia 4-04 (Same as: l 04:00: Pepcid) [place] Zofran ODT No Notes: Memor ia 4-04 (Same as: l 04:00: Zofran Markus 00 ODT) Acetaminoph No Notes: Max Memoria en 4-04 acetaminop l 04:00: hen 4000 [place] 00 mg/day (4 gm/day). (Same as: Tylenol Extra Strength) cefadroxil Yes 500 mg = 1 M emoria 500 mg oral 1-12 cap, PO, l capsule 15:00: BID, Markus 00 start medication on 05/12/20 [id number] [place] [address] [place] [address] , X 7 day, # 14 cap, 0 Refill(s), called to pharmacy meloxicam Yes 15 mg = 1 Mem oria 15 mg oral 1-12 tab, PO, l tablet 15:00: Daily, Sony n 00 start medication on 05/12/20 eRx sent to pharmacy [facility] #[id number] [address] [place] [address] , # 30 tab, 0 Refill(s), called to pharmacy meloxicam No Notes: Memori a 1-12 (Same as: l 15:00: Mobic) Markus 00 Aspirin 81 No Notes: Do Me moria MG Enteric -12 not crush l Coated 14:00: or chew. [place] Tablet 00 (Same As: Ecotrin) Cefazolin No Notes: Memori a 1-12 (Same As: l 09:00: Ancef, Markus 00 Kefzol) MEDICATION WASTE Product Size: 1000 mg Product Wasted: ___ mg Docusate No Notes: Memoria Sodium 100 -12 (Same as: l MG Oral 03:06: Colace) Markus Capsule 00 (Do Not [Colace] Crush) Aspirin 81 Yes 81 mg = 1 Me moria MG Enteric -12 tab, PO, l Coated 03:00: BID, [place] Tablet 00 start medication on 05/11/20 eRx sent to pharmacy [facility] #[id number] [address] [place] [address] , # 60 tab, 0 Refill(s), called to pharmacy gabapentin No Notes: Memor ia 300 MG Oral -12 (Same as: l Capsule 03:00: Neurontin) Herm chelsey 00 Saline No Notes: Memoria Flush 0.9% 12 (Same as: l 03:00: BD [place] 00 Posiflush) Ondansetron Yes 4 mg = 1 Me moria 4 MG 1-12 tab, PO, l Disintegrat 00:29: Q8H, PRN He rmann ing Tablet 00 Nausea & Vomiting, allow tablet to dissolve on tongue start medication on 05/11/20 eRx sent to pharmacy [facility] #[id number] [address] [place] [place] [address] , # 12 tab, 0 Refill(s). .. Klonopin No Notes: Memoria - (Same As: l 23:10: KlonoPIN) [facility] 3:Reproduc tive risk Hazardous Drug -- Refer to safe handling procedure PPE Matrix ketOROLAC Yes 4 days Memor ia 30 mg/mL 05-11 l injectable 22:49: MEDICATION H ermann solution WASTE Product Size: 30 mg Product Wasted: ___ mg Lactated No 1,000 mL, Isreal adiel Ringers IV 05-11 Rate: 125 l 1,000 mL 21:03: ml/hr, Infuse over: 8 hr, Route: IV, Dosing Weight 65.909 kg, Total Volume: 1,000, Start date: 05/11/20 15:03:00 BOOTH OPERATOR, Duration: 30 day, Stop date: 06/10/20 15:02:00 BOOTH OPERATOR, 1.72, m2, 0 Acetaminoph No Notes: Do M emoria en 325 MG / 05-11 not exceed l Hydrocodone 21:03: 4gm/day of Markus Bitartrate 00 acetaminop 10 MG Oral hen. Tablet (Same as: [place] 325/10) Zofran ODT No Notes: Memor ia - (Same as: l 21:03: Zofran [place] 00 ODT) Benadryl No Notes: Memoria 05-11 (Same as: l 21:03: Benadryl) [place] 00 Melatonin 3 No Notes: Isreal adiel MG Extended 05-11 (Same as: l Release 21:03: Melatonin) Herm chelsey Tablet 00 Tums No Notes: Memoria -11 (Same As: l 21:03: Tums) [place] Calcium Carbonate 500 mg = 200 mg elemental calcium Dose = mg calcium carbonate ( mg elemental calcium) Saline No Notes: Memoria Flush 0.9% 05-11 (Same as: l 21:03: BD Markus 00 Posiflush) ceFAZolin No Route: IV, Me moria (ANES) 05-11 Drug form: l 19:57: INJ, ONCE, Stop date: 05/11/20 13:57:00 BOOTH OPERATOR lidocaine 2020-0 No Route: IV, Me moria (ANES) 05-11 Drug form: l 19:52: INJ, ONCE, Stop date: 05/11/20 13:52:00 BOOTH OPERATOR fentaNYL 2020-0 No Route: IV, Mem oria (ANES) 05-11 Drug form: l 19:52: INJ, ONCE, Stop date: 05/11/20 13:52:00 BOOTH OPERATOR propofol 2020-0 No Route: IV, Mem oria (ANES) 05-11 Drug form: l 19:52: INJ, ONCE, Stop date: 05/11/20 13:52:00 BOOTH OPERATOR midazolam 2020-0 No Route: IV, Me moria (ANES) 05-11 Drug form: l 19:47: SOLN, ONCE, Stop date: 05/11/20 13:47:00 BOOTH OPERATOR famotidine No Route: IV, M emoria (ANES) 05-11 Drug form: l 19:47: INJ, ONCE, Stop date: 05/11/20 13:47:00 BOOTH OPERATOR Oxycodone 0 No 5 mg, Memoria Hydrochlori 05-11 Route: PO, l de 5 MG 19:36: Drug form: Herm chelsey Oral Tablet 00 TAB, Q4H, Dosing Weight 65.909, kg, PRN Pain Score 4-6, Start date: 05/11/20 13:36:00 BOOTH OPERATOR, Duration: 30 day, Stop date: 06/10/20 13:35:00 BOOTH OPERATOR Fentanyl 2020-0 No 25 Memoria -11 microgram, l 19:36: Route: IVP, Q5Min, Dosing Weight 65.909, kg, PRN Pain Score 4-6, Priority: Routine, Start date: 05/11/20 13:36:00 BOOTH OPERATOR, Duration: 4 doses or times, Stop date: Limited # of times Flumazenil 0 No 0.2 mg, Isreal adiel 05-11 Route: l 19:36: IVP, PRN, Dosing Weight 65.909, kg, PRN Benzodiaze pine Reversal, Initial dose, Start date: 05/11/20 13:36:00 BOOTH OPERATOR, Duration: 30 day, Stop date: 06/10/20 13:35:00 BOOTH OPERATOR Naloxone 0 No 0.4 mg, Memori a 05-11 Route: l 19:36: IVP, [place] 00 Q2MIN, Dosing Weight 65.909, kg, PRN Narcotic Reversal, Start date: 05/11/20 13:36:00 BOOTH OPERATOR, Duration: 8 doses or times, Stop date: Limited # of times Meperidine 0 No 12.5 mg, Mem oria 05-11 Route: l 19:36: IVP, Markus Q30Min, Dosing Weight 65.909, kg, PRN Other -See Comment, For shivering, Start date: 05/11/20 13:36:00 BOOTH OPERATOR, Duration: 2 doses or times, Stop date: Limited # of times Ondansetron No 4 mg, Memor ia 05-11 Route: l 19:36: IVP, ONCE, Markus Dosing Weight 65.909, kg, PRN Nausea & Vomiting, Start date: 05/11/20 13:36:00 BOOTH OPERATOR tranexamic No Route: IV, M emoria acid (ANES) 05-11 Drug form: l 100 mg 19:29: INJ, Start Prachi nn date: 05/11/20 13:29:00 BOOTH OPERATOR, Stop date: 05/11/20 14:29:00 BOOTH OPERATOR propofol No Route: IV, Mem oria (ANES) 10 05-11 Drug form: l mg 19:17: INJ, Start [place] date: 05/11/20 13:17:00 BOOTH OPERATOR, Stop date: 05/11/20 14:17:00 BOOTH OPERATOR Lactated No Route: IV, Mem oria Ringers 05-11 Total l Injection 19:07: Volume: Prachi nn IV (ANES) 00 1,000, 1000 mL Start date: 05/11/20 13:07:00 BOOTH OPERATOR, Stop date: 05/11/20 14:07:00 BOOTH OPERATOR ceFAZolin + No Notes: Isreal adiel sterile 05-11 (Same As: l water 20 mL 06:00: Ancef, Herm chelsey Kefzol) MEDICATION WASTE Product Size: 1000 mg Product Wasted: ___ mg Zofran ODT No Notes: Memor ia 05-11 (Same as: l 06:00: Zofran Markus 00 ODT) CeleBREX No Notes: Memoria 05-11 NSAID. l 06:00: Please Markus 00 check indication . Not for seizure. (Same As: CeleBREX) Cyklokapron No Notes: Isreal adiel + Sodium 05-11 (Same As: l Chloride 06:00: Cyklokapro Her hogan 0.9% IV 100 00 n) mL Lyrica No Notes: Memoria 05-11 (Same as: l 06:00: Lyrica) acetaminoph No Notes: Max Memoria en 05-11 acetaminop l 06:00: hen 4000 Markus 00 mg/day (4 gm/day). (Same as: Tylenol Extra Strength) dexamethaso No Notes: Isreal adiel ne 05-11 Concentrat l 06:00: ion: [place] 00 4mg/ml famotidine No Notes: Memor ia 05-11 (Same as: l 06:00: Pepcid) Markus 00 pantoprazol Yes 40 mg = 2 M emoria e 20 mg 07 tab, PO, l oral 16:46: Daily, # Markus enteric 00 60 tab, 0 coated Refill(s) tablet estradiol 2 Yes 2 mg = 1 Me moria mg oral 07 tab, PO, l tablet 16:26: Daily, # Markus 00 30 tab, 0 Refill(s) 1 ML Yes See Memoria Hydromorpho 05-07 Instructio l ne 16:26: ns, PRN Markus Hydrochlori 00 Pain, pain de 1 MG/ML pump, 0 Prefilled Refill(s) Syringe [Dilaudid] Clonazepam Yes buspar, Isreal adiel 1 MG Oral 1-07 PO, TID, # l Tablet 16:25: 90 tab, 0 Sony n [Klonopin] 00 Refill(s) Buspar Yes 15 mg, PO, Memor ia 1-07 QID, 0 l 16:25: Refill(s) Markus 00 ferrous Yes 250 mg = 1 Isreal adiel sulfate 250 1-07 cap, PO, l mg oral 16:24: Daily, # Sony n capsule, 00 30 cap, 0 extended Refill(s) release Chantix 1 Yes 1 mg = 1 Isreal adiel mg oral -07 tab, PO, l tablet 16:24: Daily, # Markus 00 30 tab, 0 Refill(s) Furosemide Yes 20 mg = 1 Me moria 20 MG Oral 07 tab, PO, l Tablet 16:24: Daily, # Markus 00 30 tab, 0 Refill(s) magnesium Yes 140 mg = 1 Me moria oxide 140 05-07 cap, PO, l mg oral 16:23: Daily, # Soyn n capsule 00 30 cap, 0 Refill(s) escitalopra Yes post 10mg QD Take [address] [facility] oxalate 9-10 traumatic by mouth L [facility] - (LEXAPRO) 15:01: stress daily. Medi payam 10 MG 57 disorder Center tablet clonazePAM 0 Yes 1mg Q.[id number] Take [address] [facility] (KLONOPIN) - [id number] by mouth 3 [facility] - 1 MG tablet 15:01: 3D (three) Med ical 57 times Center daily . multivitami Yes 1{tbl} QD Take [address] n,tx-iron-m 9-10 tablet by Mirtha es - inerals Tab 15:01: mouth Medic al 57 daily. [facility] terconazole 2019-0 Yes 1{appli QD Place [address] [facility] (TERAZOL 7) 9-10 cator} applicator [facility] - 0.4 % 15:01: vaginally Medical vaginal 57 nightly. [facility] cream busPIRone 2019-0 Yes 15mg Q.25D Take [address] [facility] (BUSPAR) 15 9-10 by mouth 4 Gina kes - MG tablet 15:01: (four) Medica l 57 times Center daily. gabapentin 2019-0 Yes 300mg Q.[id number] Take [address] [facility] (NEURONTIN) 9-10 [id number] mg by L ukes - 300 MG 15:01: 3D mouth 3 Medical capsule 57 (three) Center times daily. estrogens, 2020-0 Yes 1mg QD Take [address] [facility] conjugated, 9-10 by mouth Luke s - (PREMARIN) 15:01: daily. Medic al 1.25 MG 57 Center tablet pantoprazol 2020-0 Yes 40mg Q.5D Take [address] [facility] e 9-10 by mouth 2 [facility] - (PROTONIX) 15:01: (two) Medica l 40 MG 57 times Center tablet daily. ferrous 2020-0 Yes 65mg Take [address] [facility] sulfate 325 9-10 by mouth Luke s - (65 FE) MG 15:01: daily with M edical tablet 57 breakfast. Center fluconazole 2020-0 Yes 100mg QD Take 100 [...] sly. Medical (RECLAST 57 Center IV) sodium 2020-[address] [facility] chloride 9-10 intravenou [facility] - 0.9% (NS) 15:01: sly Medical SolP with 57 continuous Cent er HYDROmorpho . ne 10 mg/mL Soln 20 mcg/mL baclofen 2020-0 Yes 10mg Q.[id number] Take [address] [facility] (LIORESAL) 9-10 [id number] by mouth 3 [facility] - 10 MG 15:01: 3D (three) Medical tablet 57 times Center daily. sertraline 2020-0 Yes 25mg QD Take [address] (ZOLOFT) 25 9-10 by mouth Luke s - MG tablet 15:01: daily. Medica l 57 Center escitalopra 2020-0 Yes post 10mg QD Take [address] [facility] m oxalate 9-10 traumatic by mouth L u[facility] - (LEXAPRO) 15:01: stress daily. Medi payam 10 MG 57 disorder Center tablet clonazePAM 2020-0 Yes 1mg Q.[id number] Take [address] [facility] (KLONOPIN) 9-10 [id number] by mouth 3 [facility] - 1 MG [...] times Center daily. gabapentin 2020-0 Yes 300mg Q.[id number] Take [address] (NEURONTIN) 9-10 [id number] mg by L ukes - 300 MG 15:01: 3D mouth 3 Medical capsule 57 (three) Center times daily. estrogens, 2020-0 Yes 1mg QD Take [address] [facility] conjugated, 9-10 by mouth Luke s - (PREMARIN) 15:01: daily. Medic al 1.25 MG 57 Center tablet pantoprazol 2020-0 Yes 40mg Q.5D Take [address] [facility] e 9-10 by mouth 2 [facility] - (PROTONIX) 15:01: (two) Medica l 40 MG 57 times Center tablet daily. ferrous 2020-0 Yes 65mg Take [address] sulfate 325 9-10 by mouth Luke s - (65 FE) MG 15:01: daily with M edical tablet 57 breakfast. Center fluconazole 2020-0 Yes 100mg QD Take 100 [...] sly. Medical (RECLAST 57 Center IV) sodium 2020-[address] [facility] chloride 9-10 intravenou [facility] - 0.9% (NS) 15:01: sly Medical SolP with 57 continuous Cent er HYDROmorpho . ne 10 mg/mL Soln 20 mcg/mL baclofen 2019-0 Yes 10mg Q.[id number] Take [address] (LIORESAL) 9-10 [id number] by mouth 3 [facility] - 10 MG 15:01: 3D (three) Medical tablet 57 times Center daily. sertraline Yes 25mg QD Take [address] (ZOLOFT) 25 9-10 by mouth Luke s - MG tablet 15:01: daily. Medica l 57 Center hydrocortis 2020- No 25mg Place 25 [facility] one 01-08 09-21 mg [facility] 00:[facility]: 00:00 rectally o f 25 MG 00 :00 at Medicin suppository bedtime. e hydrocortis 2020- No 25mg Place 25 [facility] one 01-08 09-21 mg [facility] 00:00: 00:00 rectally o f 25 MG 00 :00 at Medicin suppository bedtime. e tramadol 2020- No 50mg Take 50 mg [facility] (ULTRAM) 50 12-16-18 by mouth Col lege MG tablet 19:30: 00:00 daily. of 33 :00 Medicin e sucralfate 2019- 2020- No 1g Take 1 g [facility] (CARAFATE) 12-16-18 by mouth Ronny ege 1 g tablet 19:30: 00:00 daily. of 30 :00 Medicin e predniSONE 2019-0 2019- No 5mg Take 5 mg [facility] (DELTASONE) 12-16-18 by mouth Col lege 5 MG tablet 19:30: 00:00 daily. of 24 :00 Medicin e metronidazo 2019-0 2020- No 500mg Take 500 [facility] (FLAGYL) 8- 08-18 [facility] 19:30: 00:00 mouth of tablet 21 :00 daily. Medicin e metoclopram 2019- No 10mg Take 10 mg [facility] sam -16 12-18 by mouth [facility] (REGLAN) 10 19:30: 00:00 every 6 of MG tablet 21 :00 hours. Medicin e hydrocortis 2020- No 20mg Take 20 mg [facility] one 12-16-18 by mouth [facility] (CORTEF) 20 19:30: 00:00 daily. of MG tablet 15 :00 Medicin e diazepam 2019- No 10mg Take 10 mg [facility] (VALIUM) 10 12-16-18 by mouth Col lege mg tablet 19:30: 00:00 daily. of 12 :00 Medicin e celecoxib 0 2020- No 100mg Take 100 [facility] (CELEBREX) 12-16 08-18 mg by [facility] 100 MG 19:30: 00:00 mouth of capsule 09 :00 daily. Medicin e alprazolam 0 2020- No alprazolam [facility] (XANAX) 1 -16 12-18 1 mg College MG tablet 19:30: 00:00 tablet T1T o f 03 :00 PO QD Medicin e Sertraline 0 Yes Take by [place] esthela HCl (ZOLOFT -18 mouth. Colleg e OR) 18:53: of 39 Medicin e clonazePAM 2019-0 Yes 1mg Take 1 mg [facility] (KLONOPIN -18 by mouth 3 Ronny ege OR) 18:53: times of 39 daily. Medicin e busPIRone 2019-0 Yes 10mg Take 10 mg [facility] (BUSPAR) 10 8-18 by mouth 3 Co llege MG tablet 18:53: times of 39 daily. Medicin e estradiol 2019-0 Yes estradiol [place] esthela (ESTRACE) 1 8-18 1 mg College MG tablet 18:53: tablet of 39 Medicin e raNITIdine 2020-0 Yes [facility] HCl (ZANTAC 8-18 College OR) 18:53: of 39 Medicin e cefUROXime 2020-0 Yes cefuroxime [facility] (CEFTIN) 8-18 axetil 500 Colle ge 500 MG 18:53: mg tablet of tablet 39 Medicin e escitalopra 2020-0 Yes 20mg Take 20 mg [facility] (LEXAPRO) 8-18 by mouth Ronny ege 20 MG 18:53: daily. of tablet 39 Medicin e fluconazole 2020-0 Yes 150mg Take 150 [facility] (DIFLUCAN) 8-18 mg by [facility] 150 MG 18:53: mouth of tablet 39 daily. Medicin e loperamide 2020-0 Yes 2mg Take 2 mg [facility] (IMMODIUM) 8-18 by mouth Colle ge 2 MG 18:53: daily. of capsule 39 Medicin e Mesalamine 2020-0 Yes 1.2mg Take 1.2 [facility] 1.2 g TBEC 8-18 mg by College 18:53: mouth of 39 daily. Medicin e montelukast 2020-0 Yes 10mg Take 10 mg [facility] (SINGULAIR) 8-18 by mouth Ronny ege 10 MG 18:53: daily. of tablet 39 Medicin e quetiapine 2020-0 Yes 50mg Take 50 mg [facility] (SEROQUEL) 8-18 by mouth [facility] 50 MG 18:53: daily. of tablet 39 Medicin e fluconazole 2020-0 Yes 150mg Take 150 [facility] (DIFLUCAN) 8-18 mg by [place] 150 MG 13:53: mouth of tablet 39 daily. Medicin e fluconazole 2020-0 Yes 150mg Take 150 [facility] (DIFLUCAN) 8-18 mg by [place] 150 MG 13:53: mouth of tablet 39 daily. Medicin e fluconazole 2020-0 Yes 150mg Take 150 [facility] (DIFLUCAN) 8-18 mg by [place] 150 MG 13:53: mouth of tablet 39 daily. Medicin e Na 2020-0 Yes [SUPREP] [facility] Sulfate-K 8-14 Take as College Sulfate-Mg 00:00: directed. of Sulf 00 Medicin (SUPREP e BOWEL PREP KIT) 17.5-3.13-1 .6 GM/177ML SOLN diphenoxyla 2020-0 Yes 1{tbl} Take 1 Tab [facility] te-atropine -14 by mouth 4 [facility] (LOMOTIL) 00:00: times of 2.5-0.025 00 daily as Medici n MG per needed for e tablet Diarrhea. Na 2020- No [SUPREP] [facility] Sulfate-K 12-12 Take as [facility] e Sulfate-Mg 00:00: 00:00 directed. o f Sulf 00 :00 Medicin (SUPREP e BOWEL PREP KIT) 17.5-3.13-1 .6 GM/177ML SOLN Na 2020- No [SUPREP] [facility]ev Sulfate-K 12-12 Take as [facility] Sulfate-Mg 00:00: 00:00 directed. o f Sulf 00 :00 Medicin (SUPREP e BOWEL PREP KIT) 17.5-3.13-1 .6 GM/177ML SOLN valACYclovi 2019-0 Yes valacyclov Methodi r (VALTREX) 8-[address] 1000 MG 00:00: tablet [facility] tablet 00 l STELARA 90 2020-0 Yes [id number] INJECT [facility] MG/ML 3-27 90MG College injection 00:00: SUBCUTANEO of 00 USLY EVERY Medicin 28 DAYS e celecoxib 2020-0 Yes 100mg Take 100 [place] esthela (CELEBREX) 3-12 mg by [facility] 100 MG 16:41: mouth of capsule 28 daily. Medicin e predniSONE 2020-0 Yes 5mg Take 5 mg [facility] (DELTASONE) 3-12 by mouth Ronny ege 5 MG tablet 16:41: daily. of 28 Medicin e hydrocortis 2020-0 Yes 20mg Take 20 mg Kev one 3-12 by mouth College (CORTEF) 20 16:41: daily. of MG tablet 28 Medicin e quetiapine 2020-0 Yes 50mg Take 50 mg [facility] (SEROQUEL) 3-12 by mouth [facility] 50 MG 16:41: daily. of tablet 28 Medicin e sucralfate 2020-0 Yes 1g Take 1 g [place] [facility] (CARAFATE) 3-12 by mouth [facility] 1 g tablet 16:41: daily. of 28 Medicin e tramadol 2020-0 Yes 50mg Take 50 mg [place] [facility] (ULTRAM) 50 3-12 by mouth [facility] MG tablet 16:41: daily. of 28 Medicin e escitalopra 2020-0 Yes 20mg Take 20 mg [facility] (LEXAPRO) 3-12 by mouth [facility] 20 MG 16:29: daily. of tablet 07 Medicin e diazepam 2020-0 Yes 10mg Take 10 mg [place] est[facility] (VALIUM) 10 3-12 by mouth [facility] mg tablet 16:29: daily. of 07 Medicin e fluconazole 2020-0 Yes 150mg Take 150 [facility] (DIFLUCAN) 3-12 mg by [place] 150 MG 16:29: mouth of tablet 07 daily. Medicin e loperamide 2020-0 Yes 2mg Take 2 mg [facility] (IMMODIUM) 3-12 by mouth [facility]le [facility] 2 MG 16:29: daily. of capsule 07 Medicin e Mesalamine 2020-0 Yes 1.2mg Take 1.2 [facility] 1.2 g TBEC 3-12 mg by [facility] 16:29: mouth of 07 daily. Medicin e metronidazo 2020-0 Yes 500mg Take 500 [facility] le (FLAGYL) 3-12 mg by [place] 500 MG 16:29: mouth of tablet 07 daily. Medicin e metoclopram 2020-0 Yes 10mg Take 10 mg [facility] sam 3-12 by mouth College (REGLAN) 10 16:29: every 6 of MG tablet 07 hours. Medicin e montelukast 2020-0 Yes 10mg Take 10 mg [facility] (SINGULAIR) 3-12 by mouth [facility] 10 MG 16:29: daily. of tablet 07 Medicin e estradiol 2020-0 Yes estradiol [place] [facility] (ESTRACE) 1 3-12 1 mg [facility] MG tablet 16:19: tablet of 16 Medicin e raNITIdine 2020-0 Yes [facility] HCl (ZANTAC 3-12 College OR) 16:19: of 16 Medicin e cefUROXime 2020-0 Yes cefuroxime [facility] (CEFTIN) 3-12 axetil 500 [facility]le [facility] 500 MG 16:19: mg tablet of tablet 16 Medicin e alprazolam 2020-0 Yes alprazolam [facility] (XANAX) 1 3-12 1 mg College MG tablet 16:19: tablet T1T of 16 PO QD Medicin e Sertraline 2020-0 Yes Take by [place] [facility] HCl (ZOLOFT 3-12 mouth. Colleg e OR) 16:15: of 39 Medicin e clonazePAM 2020-0 Yes 1mg Take 1 mg [facility] (KLONOPIN 3-12 by mouth 3 [facility] OR) 16:15: times of 39 daily. Medicin e busPIRone 2020-0 Yes 10mg Take 10 mg [facility] (BUSPAR) 10 3-12 by mouth 3 Co llege MG tablet 16:15: times of 39 daily. Medicin e pantoprazol 2020-0 Yes [id number] 40mg Take 1 Tab [facility] e 3-02 by mouth 2 College (PROTONIX) 00:00: times of 40 MG 00 daily Medicin tablet (before e meals). 1 tablet by mouth every day pantoprazol 2020-0 Yes [id number] 40mg Take 1 Tab [facility] 3-02 by mouth 2 College (PROTONIX) 00:00: times of 40 MG 00 daily Medicin tablet (before e meals). 1 tablet by mouth every day PANTOPRAZOL 2020-0 2020- No 40mg Take 40 mg [facility] E SODIUM OR 2-25 02-25 by mouth Col lege 19:38: 00:00 daily. of 50 :00 Medicin e Pantoprazol 2020-0 Yes 40mg Take 40 mg [facility] e Sodium 40 2-25 by mouth [facility] MG PACK 00:00: daily. of 00 Medicin e Pantoprazol 2020-0 Yes 40mg Take 40 mg [facility] Sodium 40 2-25 by mouth [facility] MG PACK 00:00: daily. of 00 Medicin e Sertraline 2020-0 Yes Take by [place] [facility] HCl (ZOLOFT 2-19 mouth. Colleg e OR) 16:59: of 05 Medicin e PANTOPRAZOL 2020-0 Yes 40mg Take 40 mg [facility] E SODIUM OR 2-19 by mouth [facility] 16:59: daily. of 05 Medicin e clonazePAM 2020-0 Yes 1mg Take 1 mg [facility] (KLONOPIN 2-19 by mouth 3 [facility] OR) 16:59: times of 05 daily. Medicin e busPIRone 2020-0 Yes 10mg Take 10 mg [facility] (BUSPAR) 10 2-19 by mouth 3 Co llege MG tablet 16:59: times of 05 daily. Medicin e Sertraline 2020-0 Yes Take by [place] [facility] HCl (ZOLOFT 2-19 mouth. Colleg e OR) 16:59: of 05 Medicin e clonazePAM 2020-0 Yes 1mg Take 1 mg [facility] (KLONOPIN 2-19 by mouth 3 [facility] OR) 16:59: times of 05 daily. Medicin e busPIRone 2020-0 Yes 10mg Take 10 mg [facility] (BUSPAR) 10 2-19 by mouth 3 Co llege MG tablet 16:59: times of 05 daily. Medicin e acetaminoph 2019- No 300mg 300 mg as Kev en-codeine 2-12 02-12 needed. [facility]le ge (TYLENOL/CO 14:22: 00:00 of DEINE #3) 23 :00 Medicin 300-30 MG e per tablet Sertraline 2019-0 Yes Take by [place] [facility] HCl (ZOLOFT 2-12 mouth. Colleg e OR) 14:21: of 59 Medicin e PANTOPRAZOL 2019-0 Yes 40mg Take 40 mg [facility] E SODIUM OR 2-12 by mouth [facility] 14:21: daily. of 59 Medicin e clonazePAM 2019-0 Yes 1mg Take 1 mg [facility] (KLONOPIN 2-12 by mouth 3 [facility] OR) 14:21: times of 59 daily. Medicin e busPIRone 2019-0 Yes 10mg Take 10 mg [facility] (BUSPAR) 10 2-12 by mouth 3 Co llege MG tablet 14:21: times of 59 daily. Medicin e busPIRone 2018-05 Yes buspirone [facility] (BUSPAR) 15 1-[address] MG tablet 00:00: tablet one [facility] 00 po four l times a day acetaminoph Yes 1{tbl} Take 1 Tab Kev en-codeine 8-23 by mouth. [facility] (TYLENOL 00:00: of #4) 300-60 00 Medicin MG per e tablet acetaminoph 2021- No 1{tbl} Q.5D Take 1 M ethodi en-codeine 8-23 01-[address] (TYLENOL 00:00: 00:00 mouth 2 Hospi ta WITH 00 :00 (two) l CODEINE #4) times a 300-60 mg day. per tablet gabapentin 2021- No TAKE Method i (NEURONTIN) 12-21-06 ONE(1) st 300 mg 00:00: 00:00 CAPSULE BY [facility] capsule 00 :00 MOUTH l TWICE DAILY acetaminoph 2020- No 1{tbl} Take 1 Tab Kev en-codeine 12-21 08-18 by mouth. Col lege (TYLENOL 00:00: 00:00 of #4) 300-60 00 :00 Medicin MG per e tablet busPIRone Yes 10mg Take 10 mg [facility] (BUSPAR) 10 8-20 by mouth 3 Co llege MG tablet 15:05: times of 52 daily. Medicin e Sertraline Yes Take by [place] [facility] HCl (ZOLOFT 8-20 mouth. Colleg e OR) 15:03: of 59 Medicin e PANTOPRAZOL Yes 40mg Take 40 mg [facility] E SODIUM OR 8-20 by mouth [facility] 15:03: daily. of 59 Medicin e clonazePAM Yes 1mg Take 1 mg [facility] (KLONOPIN 8-20 by mouth 3 [facility] OR) 15:03: times of 59 daily. Medicin e acetaminoph Yes 300mg 300 mg as Kev en-codeine 8-20 needed. Colleg e (TYLENOL/CO 15:03: of DEINE #3) 59 Medicin 300-30 MG e per tablet cholecalcif Yes 2000U Take 2,000 [facility] estephania, 8-[address] vitamin D3, 00:00: mouth. [facility] (VITAMIN 00 l D3) 2,000 unit capsule capsule dicyclomine Yes [id number] 10mg Take 1 Cap [facility] (BENTYL) 10 8-20 by mouth 4 Co llege MG capsule 00:00: times of 00 daily Medicin (before e meals and nightly). 1 by mouth four times a day Ferrous 2018- Yes [id number] 325mg Take 325 [facility] Sulfate 8-20 mg by College (IRON) 325 00:00: mouth two of (65 Fe) MG 00 times Medicin TABS daily. e Cholecalcif Yes [id number] 2000U Take 2,000 [facility] estephania 8-20 Units by [place] (VITAMIN D) 00:00: mouth of 2000 units 00 daily. Medicin CAPS e Cholestyram 2019-0 Yes [id number] 4g Take 4 g Kev ine 4 8-20 by mouth 3 College GM/DOSE 00:00: times of POWD 00 daily. Medicin e dicyclomine 2019-0 Yes [id number] 10mg Take 1 Cap [facility] (BENTYL) 10 8-20 by mouth 4 Co llege MG capsule 00:00: times of 00 daily Medicin (before e meals and nightly). 1 by mouth four times a day Ferrous 2019-0 Yes [id number] 325mg Take 325 [facility] Sulfate 8-20 mg by [place] (IRON) 325 00:00: mouth two of (65 Fe) MG 00 times Medicin TABS daily. e Cholecalcif 2019-0 Yes [id number] 2000U Take 2,000 [facility] estephania 8-20 Units by [place] (VITAMIN D) 00:00: mouth of 2000 units 00 daily. Medicin CAPS e Cholestyram 2019-0 Yes [id number] 4g Take 4 g [facility] ine 4 8-20 by mouth 3 College GM/DOSE 00:00: times of POWD 00 daily. Medicin e dicyclomine 2019-0 Yes [id number] 10mg Take 1 Cap [facility] (BENTYL) 10 8-20 by mouth 4 Co llege MG capsule 00:00: times of 00 daily Medicin (before e meals and nightly). 1 by mouth four times a day Ferrous 2019-0 Yes [id number] 325mg Take 325 [facility] Sulfate 8-20 mg by [place] (IRON) 325 00:00: mouth two of (65 Fe) MG 00 times Medicin TABS daily. e Cholecalcif 2019-0 Yes [id number] 2000U Take 2,000 [facility] estephania 8-20 Units by [place] (VITAMIN D) 00:00: mouth of 2000 units 00 daily. Medicin CAPS e Cholestyram 2019-0 Yes [id number] 4g Take 4 g [facility]ev ine 4 8-20 by mouth 3 College GM/DOSE 00:00: times of POWD 00 daily. Medicin e dicyclomine 2019-0 Yes [id number] 10mg Take 1 Cap [facility] (BENTYL) 10 8-20 by mouth 4 Co llege MG capsule 00:00: times of 00 daily Medicin (before e meals and nightly). 1 by mouth four times a day Ferrous 2019-0 Yes [id number] 325mg Take 325 [facility] Sulfate 8-20 mg by College (IRON) 325 00:00: mouth two of (65 Fe) MG 00 times Medicin TABS daily. e Cholecalcif 2019-0 Yes [id number] 2000U Take 2,000 [facility] estephania 8-20 Units by [place] (VITAMIN D) 00:00: mouth of 2000 units 00 daily. Medicin CAPS e Cholestyram 2019-0 Yes [id number] 4g Take 4 g [facility]ev ine 4 8-20 by mouth 3 College GM/DOSE 00:00: times of POWD 00 daily. Medicin e dicyclomine 2019-0 Yes [id number] 10mg Take 1 Cap [facility] (BENTYL) 10 8-20 by mouth 4 Co llege MG capsule 00:00: times of 00 daily Medicin (before e meals and nightly). 1 by mouth four times a day Ferrous 2019-0 Yes [id number] 325mg Take 325 [facility] Sulfate 8-20 mg by [place] (IRON) 325 00:00: mouth two of (65 Fe) MG 00 times Medicin TABS daily. e Cholecalcif 2019-0 Yes [id number] 2000U Take 2,000 [facility] estephania 8-20 Units by [place] (VITAMIN D) 00:00: mouth of 2000 units 00 daily. Medicin CAPS e dicyclomine 2019-0 Yes [id number] 10mg Take 1 Cap [facility] (BENTYL) 10 8-20 by mouth 4 Co llege MG capsule 00:00: times of 00 daily Medicin (before e meals and nightly). 1 by mouth four times a day Ferrous 2019-0 Yes [id number] 325mg Take 325 [facility] Sulfate 8-20 mg by [place] (IRON) 325 00:00: mouth two of (65 Fe) MG 00 times Medicin TABS daily. e Cholecalcif 2019-0 Yes [id number] 2000U Take 2,000 [facility] estephania 8-20 Units by [place] (VITAMIN D) 00:00: mouth of 2000 units 00 daily. Medicin CAPS e Ferrous 2019-0 Yes [id number] 325mg Take 325 [facility] Sulfate 8-20 mg by College (IRON) 325 00:00: mouth two of (65 Fe) MG 00 times Medicin TABS daily. e Cholecalcif 2019- Yes [id number] 2000U Take 2,000 [facility] estephania 8-20 Units by [place] (VITAMIN D) 00:00: mouth of 2000 units 00 daily. Medicin CAPS e Ferrous 2018-0 Yes [id number] 325mg Take 325 [facility] Sulfate 8-20 mg by [place] (IRON) 325 00:00: mouth two of (65 Fe) MG 00 times Medicin TABS daily. e Cholecalcif 2019- Yes [id number] 2000U Take 2,000 [facility] estephania 8-20 Units by [place] (VITAMIN D) 00:00: mouth of 2000 units 00 daily. Medicin CAPS e Ferrous 2018- Yes [id number] 325mg Take 325 [facility] Sulfate 8-20 mg by [place] (IRON) 325 00:00: mouth two of (65 Fe) MG 00 times Medicin TABS daily. e Cholecalcif 2018- Yes [id number] 2000U Take 2,000 [facility] estephania 8-20 Units by [place] (VITAMIN D) 00:00: mouth of 2000 units 00 daily. Medicin CAPS e Cholestyram Yes [id number] 4g Take 4 g [facility] ine 4 8-20 by mouth 3 College GM/DOSE 00:00: times of POWD 00 daily. Medicin e dicyclomine 2018-2020- No [id number] 10mg Take 1 Cap [facility] (BENTYL) 10 8-20 -21 by mouth 4 C ollege MG capsule 00:00: 00:00 times of 00 :00 daily Medicin (before e meals and nightly). 1 by mouth four times a day dicyclomine 2018-2020- No [id number] 10mg Take 1 Cap [facility] (BENTYL) 10 8-20 09-21 by mouth 4 C ollege MG capsule 00:00: 00:00 times of 00 :00 daily Medicin (before e meals and nightly). 1 by mouth four times a day Cholestyram 2019- 2020- No [id number] 4g Take 4 g [facility]ev ine 4 8-20 08-18 by mouth 3 College GM/DOSE 00:00: 00:00 times of POWD 00 :00 daily. Medicin e escitalopra Yes TK 1 T PO M ethodi m (LEXAPRO) 8-[address] 10 MG 00:00: Hospita tablet 00 l escitalopra Yes escitalopr [facility] (LEXAPRO) 8-08 am 10 mg [facility] 10 MG 00:00: tablet of tablet 00 Medicin e escitalopra Yes escitalopr [facility] (LEXAPRO) 8-08 am 10 mg [facility] 10 MG 00:00: tablet of tablet 00 Medicin e escitalopra Yes escitalopr [facility] (LEXAPRO) 8-08 am 10 mg [facility] 10 MG 00:00: tablet of tablet 00 Medicin e escitalopra Yes escitalopr [facility] (LEXAPRO) 8-08 am 10 mg [facility] 10 MG 00:00: tablet of tablet 00 Medicin e escitalopra Yes escitalopr [facility] (LEXAPRO) 8-08 am 10 mg [facility] 10 MG 00:00: tablet of tablet 00 Medicin e hydrocortis 2019- No 10mg Take 1 Tab [facility] one 11-27 10-29 by mouth College (CORTEF) 10 00:00: 04:59 two times of MG tablet 00 :00 daily for Medic in 90 days. e hydrocortis 2021- No U REC BID [facility] one 11-[address] (ANUSOL-HC) 00:00: 00:00 DAYS Hospi ta 2.5 % 00 :00 l rectal cream valACYclovi 2021- No Metho di r (VALTREX) 11-16 st 1000 MG 00:00: 00:00 Hospita tablet 00 :00 l terconazole 2021- No I 1 Metho di (TERAZOL 7) 10-23 APPLICATOR s t 0.4 % 00:00: 00:00 FUL Hospita vaginal 00 :00 VAGINALLY l cream QD FOR 7 DAYS pantoprazol Yes TAKE 1 Meth deepti e 6-[address] (PROTONIX) 00:00: MOUTH Hospit a 40 MG EC 00 TWICE l tablet DAILY Clotrimazol Yes [id number] 1{appli Place 1 [facility] e 5-07 cation} applicatio Colleg e (CLOTRIMAZO 00:00: n of ) 1 % 00 vaginally Medic in CREA daily. e pantoprazol Yes [id number] 40mg Take 1 Tab [facility] e 5-07 by mouth 2 College (PROTONIX) 00:00: times of 40 MG 00 daily Medicin tablet (before e meals). 1 tablet by mouth every day Ustekinumab Yes 90mg Inject 90 [facility] (STELARA) 5-07 mg into College 90 MG/ML 00:00: the skin of injection 00 every 28 Medici n days. e Clotrimazol Yes [id number] 1{appli Place 1 [facility] e 5-07 cation} applicatio Colleg e (CLOTRIMAZO 00:00: n of ) 1 % 00 vaginally Medic in CREA daily. e pantoprazol Yes [id number] 40mg Take 1 Tab [facility] e 5-07 by mouth 2 College (PROTONIX) 00:00: times of 40 MG 00 daily Medicin tablet (before e meals). 1 tablet by mouth every day Ustekinumab Yes 90mg Inject 90 [facility] (STELARA) 5-07 mg into College 90 MG/ML 00:00: the skin of injection 00 every 28 Medici n days. e Clotrimazol Yes [id number] 1{appli Place 1 [facility] e 5-07 cation} applicatio Colleg e (CLOTRIMAZO 00:00: n of ) 1 % 00 vaginally Medic in CREA daily. e Ustekinumab Yes 90mg Inject 90 [facility] (STELARA) 5-07 mg into College 90 MG/ML 00:00: the skin of injection 00 every 28 Medici n days. e Clotrimazol Yes [id number] 1{appli Place 1 [facility] e 5-07 cation} applicatio Colleg e (CLOTRIMAZO 00:00: n of ) 1 % 00 vaginally Medic in CREA daily. e Ustekinumab Yes 90mg Inject 90 [facility] (STELARA) 5-07 mg into College 90 MG/ML 00:00: the skin of injection 00 every 28 Medici n days. e Clotrimazol Yes [id number] 1{appli Place 1 [facility] e 5-07 cation} applicatio [facility] e (CLOTRIMAZO 00:00: n of ) 1 % 00 vaginally Medic in CREA daily. e Clotrimazol Yes [id number] 1{appli Place 1 [facility] e 5-07 cation} applicatio [facility] e (CLOTRIMAZO 00:00: n of ) 1 % 00 vaginally Medic in CREA daily. e Clotrimazol Yes [id number] 1{appli Place 1 [facility] e 5-07 cation} applicatio [facility] e (CLOTRIMAZO 00:00: n of ) 1 % 00 vaginally Medic in CREA daily. e Clotrimazol Yes [id number] 1{appli Place 1 [facility] e 5-07 cation} applicatio Colleg e (CLOTRIMAZO 00:00: n of ) 1 % 00 vaginally Medic in CREA daily. e fluconazole Yes [id number] 150mg Take 1 Tab [facility] (DIFLUCAN) 5-07 by mouth Colle ge 150 MG 00:00: daily. - of tablet 00 then Medicin repeat e dose in 7 weeks Clotrimazol Yes [id number] 1{appli Place 1 [facility] e 5-07 cation} applicatio [facility] (CLOTRIMAZO 00:00: n of ) 1 % 00 vaginally Medic in CREA daily. e pantoprazol Yes [id number] 40mg Take 1 Tab [facility] e 5-07 by mouth 2 College (PROTONIX) 00:00: times of 40 MG 00 daily Medicin tablet (before e meals). 1 tablet by mouth every day Ustekinumab Yes 90mg Inject 90 [facility] (STELARA) 5-07 mg into College 90 MG/ML 00:00: the skin of injection 00 every 28 Medici n days. e ustekinumab 2021- No 90mg Inject 90 [facility] (STELARA) 5-07 01-[address] 90 mg/mL 00:00: 00:00 the skin. Hos augustin injection 00 :00 l pantoprazol 2020- No [id number] 40mg Take 1 Tab Kev e 09-04-02 by mouth 2 College (PROTONIX) 00:00: 00:00 times of 40 MG 00 :00 daily Medicin tablet (before e meals). 1 tablet by mouth every day fluconazole 2020- No [id number] 150mg Take 1 Tab [facility] (DIFLUCAN) 09-04-12 by mouth [facility] 150 MG 00:00: 00:00 daily. - of tablet 00 :00 then Medicin repeat e dose in 7 weeks Oxycodone Yes TK ONE T [facility] HCl 10 MG 5-01 PO Q 4 H Colleg e TABS 00:00: PRN P of 00 Medicin e Oxycodone Yes TK ONE T [facility] HCl 10 MG 5-01 PO Q 4 H Colleg e TABS 00:00: PRN P of 00 Medicin e Oxycodone 2020- No TK ONE T [place] [facility] HCl 10 MG 5-05 02-19 PO Q 4 H Colle ge TABS 00:00: 00:00 PRN P of 00 :00 Medicin e Oxycodone 2020- No TK ONE T [place] [facility] HCl 10 MG 5-01 -19 PO Q 4 H Colle ge TABS 00:00: 00:00 PRN P of 00 :00 Medicin e gabapentin Yes 300mg Take 300 [facility] (NEURONTIN) 4-25 mg by [place] 300 MG 00:00: mouth of capsule 00 daily. Medicin e gabapentin Yes 300mg Take 300 [facility] (NEURONTIN) 4-25 mg by [place] 300 MG 00:00: mouth of capsule 00 daily. Medicin e gabapentin Yes 300mg Take 300 [facility] (NEURONTIN) 4-25 mg by [place] 300 MG 00:00: mouth of capsule 00 daily. Medicin e gabapentin Yes 300mg Take 300 [facility] (NEURONTIN) 4-25 mg by [place] 300 MG 00:00: mouth of capsule 00 daily. Medicin e gabapentin Yes 300mg Take 300 [facility] (NEURONTIN) 4-25 mg by College 300 MG 00:00: mouth of capsule 00 daily. Medicin e clindamycin Yes TK ONE C [facility] (CLEOCIN) 4-25 PO Q 6 College 300 MG 00:00: HOURS FOR of capsule 00 14 DAYS Medicin e clindamycin 2020- No TK ONE C Ravi ayesthela (CLEOCIN) 4-25 02-12 PO Q 6 Colleg e 300 MG 00:00: 00:00 HOURS FOR of capsule 00 :00 14 DAYS Medicin e ustekinumab 2017-05 Yes INJECT Meth deepti (STELARA) 2-[address] 90 mg/mL 00:00: SUBCUTANEO Hos augustin injection 00 USLY EVERY l 28 DAYS STELARA 90 2017-05 Yes INJECT [facility] mg/mL Syrg 2-12 90MG [facility] - 00:00: SUBCUTANEO Medical 00 USLY 8 Center WEEKS AFTER INNDUCTION DOSE THEN EVERY 8 WEEKS THEREAFTER STELARA 90 2017-05 Yes INJECT [facility] t mg/mL Syrg 2-12 90MG [facility] - 00:00: SUBCUTANEO Medical 00 USLY 8 Center WEEKS AFTER INNDUCTION DOSE THEN EVERY 8 WEEKS THEREAFTER Ondansetron 2016-05 No 4 mg, Memor ia 0-21 Route: l 23:36: IVP, Drug [place] form: INJ, ONCE, Dosing Weight 52.955, kg, Priority: STAT, Start date: 02/18/17 18:36:00 CDT, Stop date: 02/18/17 18:36:00 CDT Hydromorpho 2016-05 No 1 mg, Memor ia ne 0-21 Route: l 23:01: IVP, Drug [place] 00 form: INJ, ONCE, Dosing Weight 52.955, kg, [...] 0.9% 0-21 (Same as: l 20:51: BD [facility] 00 Posiflush) Sodium 2016-05 No 1,000 mL, Memori a Chloride 0-21 2,000 l 0.9% 20:51: ml/hr, [place] (Bolus) IV 00 Infuse Over: 30 minutes, Route: IV, 1,000, Drug form: INJ, ONCE, Priority: STAT, Dosing Weight 52.955 kg, Start date: 02/18/17 15:51:00 CDT, Duration: 1 doses or times, Stop date: 02/18/17 15:51:00 CDT Ondansetron 2016-05 No Notes: Isreal adiel 0-21 (Same as: l 20:51: Zofran) MEDICATION WASTE Product Size: 4 mg Product Wasted: ___ mg predniSONE 2017 Yes 40 mg = 2 Me moria 20 mg oral 6-14 tab, PO, l tablet 15:02: Daily, X [place] 30 day, # 60 tab, 0 Refill(s) [...] cap, PO, l Enteric 14:34: Q12H, # Markus Coated 00 180 cap, 0 Capsule Refill(s) Alprazolam Yes 2 mg = 1 Mem oria 2 MG Oral 6-14 tab, PO, l Tablet 14:34: QID, PRN [place] [Xanax] 00 Anxiety, X 5 day, # 20 tab, 0 Refill(s) Flagyl No Notes: Memoria 6-13 (Same as: l 16:00: Flagyl) [place] 00 Take with food/ avoid alcohol mesalamine [...] 9:00:00 CDT remove No Notes: Memoria patch -13 Remove old l 10:00: patch Markus 00 before applicatio n of new patch. WASTE: F/P - P Waste Black; E - P Waste Black Alprazolam No Notes: Memor ia 0.25 MG 6-12 With food l Oral Tablet 14:51: or milk Her [facility] [Xanax] 00 (Same as: Xanax) pantoprazol No Notes: For Memoria e 6-12 IV push l 14:30: reconstitu te with 10 ml 0.9% sodium chloride and push over 2 minutes. (Same as: Protonix) methylPREDN No Notes: Isreal adiel ISolone -12 (Same l SODium 14:00: as:Solu-ME Prachi nn SUCCinate 00 DROL, A-Methapre d) Nicotine No Notes: [facility] 6-12 (Same as: l 10:00: Habitrol) "Remove old patch before applicatio n of new patch" WASTE: F/P - P Waste Black; E - P Waste Black Flagyl No Notes: [facility] 6-12 (Same as: l 08:00: Flagyl) [place] Avoid alcohol. pneumococca No 0.5 mL, Mem oria l capsular 6-12 Route: IM, l polysacchar 07:51: ONCALL, hogan sam type 1 58 Start vaccine [...] 0.9% 6-12 (Same as: l 07:06: BD [place] 00 Posiflush) Acetaminoph No Notes: Isreal adiel en 325 MG / 6-12 (Same as: l Hydrocodone 07:06: [place] Prachi nn Bitartrate 00 325/5) Do 5 MG Oral not exceed Tablet 4gm/day of acetaminop hen. Morphine No Notes: Memoria 6-12 (Same l 07:06: as:MORPhin Markus 00 e Sulfate) Ondansetron No Notes: Isreal adiel 6-12 (Same as: l 07:06: Zofran) [place] 00 MEDICATION WASTE Product Size: 4 mg Product Wasted: ___ mg Sodium No 1,000 mL, Memori a Chloride 6-12 Rate: 125 l 0.154 07:06: ml/hr, Markus MEQ/ML 00 Infuse Injectable over: 8 Solution hr, Route: IV, Dosing Weight 52.727 kg, Total Volume: 1,000, Start date: 10/10/16 2:06:00 CDT, Duration: 30 day, Stop date: 11/09/16 2:05:00 CDT Hydromorpho No 1 mg, 1 Mem oria ne 6-12 mL, Route: l 05:36: IVP, Drug [facility] 00 form: INJ, ONCE, Dosing Weight 52.727, kg, Priority: STAT, Start date: 10/10/16 0:36:00 CDT, Stop date: 10/10/16 0:36:00 CDT Ondansetron 2016- No Notes: Isreal adiel 6-12 (Same as: l 03:54: Zofran) MEDICATION WASTE Product Size: 4 mg Product Wasted: ___ mg Hydromorpho No 2 mg, 2 Mem oria ne 6-12 mL, Route: l 03:54: IVP, Drug form: INJ, ONCE, Dosing Weight 52.727, kg, Priority: STAT, Start date: 10/09/16 22:54:00 CDT, Stop date: 10/09/16 22:54:00 CDT Sodium No 1,000 mL, Memori a Chloride 6-12 1000 l 0.154 03:54: ml/hr, [facility] MEQ/ML 00 Infuse Injectable Over: [...] PO, l MEQ 15:54: BID, # 10 [facility] Extended 00 tab, 0 Release Refill(s) Tablet [...] days Memor ia 4-15 l 15:46: MEDICATION [facility] 00 WASTE Product Size: 30 mg Product Wasted: ___ mg Sodium No 1,000 mL, Memori a Chloride 4-15 1,000 l 0.154 14:36: ml/hr, [facility] MEQ/ML 00 Infuse Injectable Over: [...] Memori a Chloride 4-15 1,000 l 0.154 12:04: ml/hr, [facility] MEQ/ML 00 Infuse Injectable Over: 1 Solution hr, Route: IV, 1,000, Drug form: INJ, ONCE, Priority: STAT, Dosing Weight 47.727 kg, Start date: 08/13/14 7:04:00, Duration: 1 doses or times, Stop date: 08/13/14 7:04:00 Saline No Notes: [facility] Flush 0.9% 08-13 Same as: l 12:03: BD Markus 00 Posiflush Sterile tramadol 2013-05 Yes 50 [...] (Same as: l MEQ 16:13: K-Dur 20) Mark[facility] Extended 00 "Do Not Release Crush" Tablet With food and full glass of water Dilaudid 2013-05 No 0.5 mg, Memori a 05-09 0.5 mL, l 14:49: Route: [place] 00 IVP, Drug form: INJ, ONCE, Dosing Weight 50.909, kg, Priority: STAT, Start date: 03/09/14 8:49:00, Stop date: 03/09/14 8:49:00 potassium 2013-05 No Notes: Memori a chloride 20 05-09 (Same as: l mEq/100 mL 14:10: KCL) Markus intravenous 00 Infuse no solution faster than 10 mEq/hr if given peripheral ly. Ondansetron 2013-05 No 4 mg, Memor ia 05-09 Route: l 12:33: IVP, ONCE, [facility] 00 Dosing Weight 50.909, kg, Priority: STAT, Start date: 03/09/14 6:33:00, Stop date: 03/09/14 6:33:00 Hydromorpho 2013-05 No 0.5 mg, Mem oria ne 05-09 Route: l 12:33: IVP, ONCE, [place] 00 Dosing Weight 50.909, kg, Priority: STAT, Start date: 03/09/14 6:33:00, Stop date: 03/09/14 6:33:00 Saline 2013-05 No Notes: Memoria Flush 0.9% 05-09 (Same as: l 12:33: BD Markus Posiflush) Sodium 2013-05 No 1,000 mL, Memori a Chloride 05-09 Infuse l 0.154 12:33: Over: 1 [place] MEQ/ML 00 hr, Route: Injectable IV, ONCE, Solution Priority: STAT, Dosing Weight 50.909 kg, Start date: 03/09/14 6:33:00, Duration: 1 doses or times, Stop date: 03/09/14 6:33:00 Nitrofurant Yes 100 mg = 1 Memoria oin 100 MG 01-14 cap, PO, l Oral 21:37: BID, # 14 Markus Capsule 00 cap, 0 [Macrobid] Refill(s) Acetaminoph No 1 tab, Isreal adiel en 325 MG / 01-14 Route: PO, l Hydrocodone 20:51: Drug Form: [place] Bitartrate 00 TAB, 5 MG Oral Dosing Tablet Weight [[place] 50.909, 5/325] kg, ONCE, STAT, Start date: 01/14/14 15:51:00, Stop date: 01/14/14 15:51:00 Potassium No Notes: Memori a Chloride 20 01-14 (Same as: l MEQ 16:33: K-Dur 20) [place] Extended 00 "Do Not Release Crush" Tablet With food and full glass of water Macrobid No Notes: Not Mem oria 01-14 Recommende l 16:20: d for [place] 00 patients with CrCl< 50 ml/min With food (Same as:Macroda ntin) Acetaminoph No 2 tab, Isreal adiel en 325 MG / 01-14 Route: PO, l Hydrocodone 13:20: Dosing Herm chelsey Bitartrate 00 Weight 5 MG Oral 50.909, Tablet kg, ONCE, [[place] Start 5/325] date: 01/14/14 8:20:00, Stop date: 01/14/14 8:20:00 Acetaminoph Yes 1 tab, PO, Memoria en 325 MG / 01-14 Q4-6H, l Hydrocodone 05:59: Pain, # 12 Markus Bitartrate 00 tab, 0 5 MG Oral Refill(s) Tablet [[place] 5/325] Hydromorpho No Notes: Isreal adiel ne -16 (Same as: l 05:48: Dilaudid) Potassium No Notes: Memori a Chloride 20 01-14 (Same as: l MEQ 05:45: K-Dur 20) 00 "Do Not Release Crush" Tablet With food and full glass of water Ondansetron No Notes: Isreal adiel 9-16 (Same as: l 03:12: Zofran) Sodium No 1,000 mL, Mem[facility] a Chloride 9-16 1000 l 0.154 03:12: ml/hr, Markus MEQ/ML [...] Chloride 7-25 1000 l 0.154 16:08: ml/hr, [place] MEQ/ML 00 Infuse Injectable Over: 1 Solution [...] Yes 0 Memoria 7-25 Refill(s) l 15:54: albuterol albuterol No albuterol [place] sulfate HFA sulfate HFA sulfate da 90 90 HFA 90 Medical mcg/actuati mcg/actuati mcg/actuat Group on aerosol on aerosol ion inhaler inhaler aerosol INHALE 2 INHALE 2 inhaler PUFFS BY PUFFS BY INHALE 2 MOUTH EVERY MOUTH EVERY PUFFS BY 4 HOURS 4 HOURS MOUTH EVERY 4 HOURS alfuzosin alfuzosin No alfuzosin [facility] ER 10 mg ER 10 mg ER 10 mg da tablet,exte tablet,exte tablet,ext Medical nded nded ended Group release 24 release 24 release 24 hr TAKE 1 hr TAKE 1 hr TAKE 1 TABLET BY TABLET BY TABLET BY MOUTH EVERY MOUTH EVERY MOUTH DAY DAY EVERY DAY IMMEDIATELY IMMEDIATELY IMMEDIATEL AFTER THE AFTER THE Y AFTER SAME MEAL SAME MEAL THE SAME MEAL baclofen 20 baclofen 20 No baclofen [place] [...] TIMES DAILY MOUTH FOUR TIMES DAILY Chantix Chantix No 1startr Chantix [facility] Starting Starting pk(s) Starting da Month Box Month Box Month Box Medical 0.5 mg 0.5 mg 0.5 mg Group (11)-1 mg (11)-1 mg (11)-1 mg (42) (42) (42) tablets in tablets in tablets in dose pack dose pack dose pack Take 1 Take 1 Take 1 startr pk startr pk startr pk by oral by oral by oral route. route. route. cholestyram cholestyram No cholestyra [place] ine (with ine (with mine (with da sugar) 4 sugar) 4 sugar) 4 Med ical gram powder gram powder gram G roup for susp in for susp in powder for a packet a packet susp in a MIX AND MIX AND packet MIX DRINK 1 DRINK 1 AND DRINK PACK PACK 1 PACK DIRECTED ON DIRECTED ON DIRECTED PACKAGE AND PACKAGE AND ON PACKAGE DRINK BY DRINK BY AND DRINK MOUTH DAILY MOUTH DAILY BY MOUTH DAILY ciclopirox ciclopirox No ciclopirox [facility] 8 % topical 8 % topical 8 % d a solution solution topical Medi payam solution Group clonazepam clonazepam No clonazepam [facility] 1 mg tablet 1 mg tablet 1 mg d a TAKE 1 TAKE 1 tablet Medical TABLET BY TABLET BY TAKE 1 Francesco up MOUTH THREE MOUTH THREE TABLET BY TIMES DAILY TIMES DAILY MOUTH THREE TIMES DAILY diclofenac diclofenac No diclofenac [place] 1 % topical 1 % topical 1 % d a gel APPLY gel APPLY topical Me dical TOPICALLY TOPICALLY gel APPLY Group TO THE TO THE TOPICALLY AFFECTED AFFECTED TO THE AREA EVERY AREA EVERY AFFECTED 8 HOURS 8 HOURS AREA EVERY DIRECTED DIRECTED 8 HOURS DIRECTED dicyclomine dicyclomine No dicyclomin [facility] 20 mg 20 mg e 20 mg da tablet TAKE tablet TAKE tablet Medical 1 TABLET BY 1 TABLET BY TAKE 1 Group MOUTH EVERY MOUTH EVERY TABLET BY 6 HOURS 6 HOURS MOUTH NEEDED NEEDED EVERY 6 HOURS NEEDED diethylprop diethylprop No diethylpro [facility] ion ER 75 ion ER 75 pion ER 75 da mg mg mg Medical tablet,exte tablet,exte tablet,ext Group nded nded ended release release release TAKE 1 TAKE 1 TAKE 1 TABLET BY TABLET BY TABLET BY MOUTH EVERY MOUTH EVERY MOUTH DAY DAY EVERY DAY epinephrine epinephrine No epinephrin [facility] 0.3 mg/0.3 0.3 mg/0.3 e 0.3 da mL mL mg/0.3 mL Medical injection, injection, injection, Group auto-inject auto-inject auto-injec or or tor ertapenem 1 ertapenem 1 No ertapenem [facility] gram gram 1 gram da solution solution solution Med ical for for for Group injection injection injection escitalopra escitalopra No escitalopr [facility] m 10 mg m 10 mg am 10 mg da tablet TAKE tablet TAKE tablet Medical 1 TABLET BY 1 TABLET BY TAKE 1 Group MOUTH EVERY MOUTH EVERY TABLET BY MORNING MORNING MOUTH EVERY MORNING estradiol 1 estradiol 1 No estradiol [facility] mg tablet mg tablet 1 mg da TAKE 1 TAKE 1 tablet Medical TABLET BY TABLET BY TAKE 1 [place] up MOUTH EVERY MOUTH EVERY TABLET BY DAY DAY MOUTH EVERY DAY fluconazole fluconazole No fluconazol [facility] 100 mg 100 mg e 100 mg da tablet Take tablet Take tablet Medical 1 tablet 1 tablet Take 1 Group every week every week tablet by oral by oral every week route. route. by oral route. fluticasone fluticasone No fluticason [facility] propionate propionate [...] DAY SPRAY IN EACH NOSTRIL EVERY DAY fosfomycin fosfomycin No fosfomycin [facility] tromethamin tromethamin tromethami da e 3 gram e 3 gram ne 3 gram Me dical oral packet oral packet oral G roup DIRECTED DIRECTED packet WEEKLY WEEKLY DIRECTED WEEKLY furosemide furosemide No furosemide [facility] 20 mg [...] 1 TABLET BY TAKE 1 Group MOUTH 6 MOUTH 6 TABLET BY TIMES A TIMES A MOUTH 6 DAYWILL DAYWILL TIMES A NEED AN NEED AN DAYWILL APPOINTMENT APPOINTMENT NEED AN BEFORE NEXT BEFORE NEXT APPOINTMEN REFILL REFILL T BEFORE NEXT REFILL hydrochloro hydrochloro No hydrochlor [facility] thiazide thiazide othiazide da 12.5 mg 12.5 mg 12.5 mg Medica l capsule capsule capsule Group TAKE 1 TAKE 1 TAKE 1 CAPSULE BY CAPSULE BY CAPSULE BY MOUTH EVERY MOUTH EVERY MOUTH DAY DAY EVERY DAY montelukast montelukast No montelukas [facility] 10 mg [...] THE TONGUE THE TONGUE TABLET ON EVERY 4 EVERY 4 THE TONGUE HOURS HOURS EVERY 4 NEEDED NEEDED HOURS NEEDED oxycodone-a oxycodone-a No oxycodone- [facility] cetaminophe cetaminophe acetaminop da n 10 mg-325 n 10 mg-325 hen 10 Medical mg tablet mg tablet mg-325 mg Group TAKE 1 TAKE 1 tablet TABLET BY TABLET BY TAKE 1 MOUTH EVERY MOUTH EVERY TABLET BY 8 HOURS 8 HOURS MOUTH NEEDED NEEDED EVERY 8 HOURS NEEDED pantoprazol pantoprazol No pantoprazo [place] e 40 mg e 40 mg le 40 mg da tablet,sarah tablet,sarah tablet,del Medical yed release yed release ayed G roup TAKE 1 TAKE 1 release TABLET BY TABLET BY TAKE 1 MOUTH TWICE MOUTH TWICE TABLET BY DAILY DAILY MOUTH TWICE DAILY phenazopyri phenazopyri No phenazopyr [place] dine 200 mg dine 200 mg idine 200 da tablet TAKE tablet TAKE mg tablet Medical 1 TABLET BY 1 TABLET BY TAKE 1 Group MOUTH THREE MOUTH THREE TABLET BY TIMES DAILY TIMES DAILY MOUTH NEEDED NEEDED THREE FOR PAIN FOR PAIN TIMES DAILY NEEDED FOR PAIN quetiapine quetiapine No quetiapine [facility] 50 mg 50 mg 50 mg da tablet TAKE tablet TAKE tablet Medical 1 TABLET BY 1 TABLET BY TAKE 1 Group MOUTH EVERY MOUTH EVERY TABLET BY DAY AT DAY AT MOUTH BEDTIME BEDTIME EVERY DAY AT BEDTIME Reclast 5 Reclast 5 No 5mg Reclast 5 [facility] mg/100 mL mg/100 mL mg/100 mL da intravenous intravenous intravenou Medical piggyback piggyback s Group Inject 5 mg Inject 5 mg piggyback by by Inject 5 intravenous intravenous mg by route. route. intravenou s route. Stelara 90 Stelara 90 No Stelara 90 [facility] mg/mL mg/mL mg/mL da subcutaneou subcutaneou subcutaneo Medical s syringe s syringe us syringe Group tretinoin tretinoin No tretinoin [facility] 0.025 % 0.025 % 0.025 % da topical topical topical Medica l cream APPLY cream APPLY cream Group TO THE TO THE APPLY TO AFFECTED AFFECTED THE AREA(S) BY AREA(S) BY AFFECTED TOPICAL TOPICAL AREA(S) BY ROUTE ONCE ROUTE ONCE TOPICAL DAILY AT DAILY AT ROUTE ONCE BEDTIME BEDTIME DAILY AT BEDTIME varenicline varenicline No vareniclin [place] 1 mg tablet 1 mg tablet e 1 mg da TAKE 1 TAKE 1 tablet Medical TABLET BY TABLET BY TAKE 1 [place] up MOUTH TWICE MOUTH TWICE TABLET BY DAILY DAILY MOUTH TWICE DAILY acetaminoph acetaminoph No acetaminop [place] en 300 en 300 hen 300 da mg-codeine mg-codeine mg-codeine [facility] 30 mg 30 mg 30 mg al tablet tablet tablet Health Outreac h Program acetaminoph acetaminoph No acetaminop [place] en 300 en 300 hen 300 da mg-codeine mg-codeine mg-codeine [facility] 60 mg 60 mg 60 mg al tablet tablet tablet Health Outreac h Program albuterol albuterol No albuterol [place] sulfate HFA sulfate HFA sulfate da 90 90 HFA 90 [facility] mcg/actuati mcg/actuati mcg/actuat al on aerosol on aerosol ion Hea lth inhaler inhaler aerosol Outrea c INHALE 2 INHALE 2 inhaler h PUFFS BY PUFFS BY INHALE 2 Pro gram MOUTH EVERY MOUTH EVERY PUFFS BY 4 HOURS 4 HOURS MOUTH EVERY 4 HOURS alprazolam alprazolam No alprazolam [facility] 1 mg tablet 1 mg tablet 1 mg d a tablet [facility] alprazolam alprazolam No alprazolam [place] 2 mg tablet 2 mg tablet 2 mg d a TAKE 1 TAKE 1 tablet [facility] TABLET TABLET TAKE 1 al POBEFORE POBEFORE TABLET Healt h LEAVING FOR LEAVING FOR POBEFORE Outreac MRI AND 1 MRI AND 1 LEAVING h TABLET UPON TABLET UPON FOR MRI Program ARRIVAL FOR ARRIVAL FOR AND 1 MRI MRI TABLET UPON ARRIVAL FOR MRI amoxicillin amoxicillin No amoxicilli [place] 500 mg 500 mg n 500 mg da capsule capsule capsule [facility] p TAKE 4 TAKE 4 TAKE 4 al CAPSULES BY CAPSULES BY CAPSULES Health MOUTH 1 MOUTH 1 BY MOUTH 1 Out reac HOUR PRIOR HOUR PRIOR HOUR PRIOR h TO DENTAL TO DENTAL TO DENTAL Program APPOINTMENT APPOINTMENT APPOINTMEN T amoxicillin amoxicillin No amoxicilli [place] 500 500 n 500 da mg-potassiu mg-potassiu mg-potassi [facility] um al clavulanate clavulanate clavulanat Health 125 mg 125 mg e 125 mg Outreac tablet TAKE tablet TAKE tablet h 1 TABLET BY 1 TABLET BY TAKE 1 Program MOUTH EVERY MOUTH EVERY TABLET BY 12 HOURS 12 HOURS MOUTH FOR 7 DAYS FOR 7 DAYS EVERY 12 HOURS FOR 7 DAYS amoxicillin amoxicillin No amoxicilli [facility] [id number] n 875 da mg-potassiu mg-potassiu mg-potassi [facility] um al clavulanate clavulanate clavulanat Health 125 mg 125 mg e 125 mg Outreac tablet TAKE tablet TAKE tablet h 1 TABLET BY 1 TABLET BY TAKE 1 Program MOUTH TWICE MOUTH TWICE TABLET BY DAILY DAILY MOUTH TWICE DAILY baclofen 10 baclofen 10 No baclofen [place] [...] p al Health Outreac h Program Chantix Chantix No Chantix [facility] Starting Starting Starting Box [facility] 0.5 mg 0.5 mg 0.5 [...] powder powder powder Health Outreac h Program cholestyram cholestyram No cholestyra [place] ine (with ine (with mine (with da sugar) 4 sugar) 4 sugar) 4 Epi scop gram powder gram powder gram a l for susp in for susp in powder for Health a packet a packet susp in a Ou treac MIX AND MIX AND packet MIX h DRINK 1 DRINK 1 AND DRINK Prog kam PACK PACK 1 PACK DIRECTED ON DIRECTED ON DIRECTED PACKAGE AND PACKAGE AND ON PACKAGE DRINK BY DRINK BY AND DRINK MOUTH DAILY MOUTH DAILY BY MOUTH DAILY ciclopirox ciclopirox No ciclopirox [place] 8 % topical 8 % topical 8 % d a solution solution topical [facility] cop breaker APPLY TO APPLY TO solution al THE [...] al MOUTH THREE MOUTH THREE TABLET BY [facility] TIMES DAILY TIMES DAILY MOUTH Outreac THREE h TIMES Program DAILY Clotrimazol Clotrimazol No 1applic Q1D Clotrimazo [place] e 3 Day 2 % e 3 Day 2 % ator(s) le 3 Day 2 da vaginal vaginal ful % vaginal [facility] cop breaker cream cream cream al Insert 1 Insert [...] al MOUTH EVERY MOUTH EVERY TABLET BY [facility] 8 HOURS 8 HOURS MOUTH Outreac EVERY [...] % topical 1 % d a gel APPLY gel APPLY topical [facility] TOPICALLY TOPICALLY gel APPLY al TO THE TO THE TOPICALLY Health AFFECTED AFFECTED TO THE Outre ac AREA EVERY AREA EVERY AFFECTED h 8 HOURS 8 HOURS AREA EVERY Program DIRECTED DIRECTED 8 HOURS DIRECTED diclofenac diclofenac No diclofenac [place] sodium 75 [...] 20 mg e 20 mg da tablet TAKE tablet TAKE tablet [facility] 1 TABLET BY 1 TABLET BY TAKE 1 al MOUTH EVERY MOUTH EVERY TABLET BY Health 6 HOURS 6 HOURS MOUTH Ou treac NEEDED NEEDED EVERY 6 h HOURS Program NEEDED diethylprop diethylprop No diethylpro [place] ion ER 75 ion ER 75 pion ER 75 da mg mg mg [facility] tablet,exte tablet,exte tablet,ext al nded nded ended Health release release release Outrea c TAKE 1 TAKE 1 TAKE 1 h TABLET BY TABLET BY TABLET BY Program MOUTH EVERY MOUTH EVERY MOUTH DAY DAY EVERY DAY diphenoxyla diphenoxyla No diphenoxyl [place] te-atropine te-atropine [...] al MOUTH EVERY MOUTH EVERY TABLET BY [facility] MORNING MORNING MOUTH Outreac EVERY h [...] DAY MOUTH Outreac EVERY DAY h Program fluconazole fluconazole No fluconazol [place] 100 mg 100 mg e 100 mg da tablet TAKE tablet TAKE tablet [facility] 1 TABLET BY 1 TABLET BY TAKE 1 al MOUTH EVERY MOUTH EVERY TABLET BY [facility] WEEK WEEK MOUTH Outreac EVERY WEEK h Program fluconazole fluconazole No fluconazol [place] 150 mg 150 mg e 150 mg da tablet TAKE tablet TAKE tablet [facility] 1 TABLET BY 1 TABLET BY TAKE 1 al MOUTH ON MOUTH ON TABLET BY He alth 11/19/2020 11/19/2020 MOUTH ON Outreac AND AGAIN AND AGAIN 11/19/2020 h AND AND AND AGAIN Program 11/24/2020 11/24/2020 AND 11/24/2020 fluconazole fluconazole No fluconazol [place] 200 mg 200 mg e 200 mg da tablet TAKE tablet TAKE tablet [facility] 1 TABLET BY 1 TABLET BY TAKE 1 al MOUTH EVERY MOUTH EVERY TABLET BY Health DAY UNTIL DAY UNTIL MOUTH Outr eac ALL TAKEN. ALL TAKEN. EVERY DAY h UNTIL ALL Program TAKEN. fluticasone fluticasone No fluticason [place] propionate propionate e da 50 50 propionate [facility] mcg/actuati mcg/actuati 50 a l on nasal on nasal mcg/actuat H ealth spray,suspe spray,suspe ion nasal Outreac nsion SHAKE nsion SHAKE spray,susp h LIQUID AND LIQUID AND ension P rogram USE 1 SPRAY USE 1 SPRAY SHAKE IN EACH IN EACH LIQUID AND NOSTRIL NOSTRIL USE 1 EVERY DAY EVERY DAY SPRAY IN EACH NOSTRIL EVERY DAY fosfomycin fosfomycin No fosfomycin [place] tromethamin tromethamin tromethami da e 3 gram e 3 gram ne 3 gram [facility] oral packet oral packet oral a l DIRECTED DIRECTED packet Health WEEKLY WEEKLY DIRECTED Outreac WEEKLY h Program furosemide furosemide No furosemide [place] 20 mg 20 mg 20 mg da tablet TAKE tablet TAKE tablet [facility] 1 TABLET BY 1 TABLET BY TAKE 1 al MOUTH EVERY MOUTH EVERY TABLET BY Health DAY DAY MOUTH Outreac EVERY DAY h Program gabapentin gabapentin No gabapentin [place] 300 mg 300 mg 300 mg da capsule capsule capsule [facility] p TAKE 1 TAKE 1 TAKE 1 al CAPSULE BY CAPSULE BY CAPSULE BY Health MOUTH THREE MOUTH THREE MOUTH Outreac TIMES DAILY TIMES DAILY THREE h TIMES Program DAILY gabapentin gabapentin No gabapentin [place] 600 mg 600 mg 600 mg da tablet TAKE tablet TAKE tablet [facility] 1 TABLET BY 1 TABLET BY TAKE 1 al MOUTH FOUR MOUTH FOUR TABLET BY Health TIMES DAILY TIMES DAILY MOUTH FOUR Outreac TIMES h DAILY Program hydrochloro hydrochloro No hydrochlor [place] thiazide thiazide othiazide da 12.5 mg 12.5 mg 12.5 mg [facility] p capsule capsule capsule al TAKE 1 TAKE 1 TAKE 1 Health CAPSULE BY CAPSULE BY CAPSULE BY Outreac MOUTH EVERY MOUTH EVERY MOUTH h DAY DAY EVERY DAY Program hydrochloro hydrochloro No hydrochlor [place] thiazide 25 thiazide 25 othiazide da mg tablet mg tablet 25 mg [facility] breaker TAKE 1 TAKE 1 tablet al TABLET [...] 500 mg ole 500 mg da tablet TAKE tablet TAKE tablet [facility] 1 TABLET BY 1 TABLET BY TAKE 1 al MOUTH EVERY MOUTH EVERY TABLET BY Health 8 HOURS 8 HOURS MOUTH Outreac UNTIL ALL UNTIL ALL EVERY 8 h TAKEN TAKEN HOURS Program UNTIL ALL TAKEN montelukast montelukast No montelukas [place] 10 mg [...] Health capsule capsule mg capsule Out reac TAKE 1 TAKE 1 TAKE 1 h CAPSULE BY CAPSULE BY CAPSULE BY Program MOUTH TWICE MOUTH TWICE MOUTH DAILY AT DAILY AT TWICE BEDTIME BEDTIME DAILY AT WITH FOOD WITH FOOD BEDTIME FOR 10 DAYS FOR 10 DAYS WITH FOOD FOR 10 DAYS nystatin nystatin No nystatin [facility] 100,000 [...] TONGUE THE TONGUE TABLET ON h EVERY 4 EVERY 4 THE TONGUE Pro gram HOURS HOURS EVERY 4 NEEDED NEEDED HOURS NEEDED ondansetron ondansetron No ondansetro [place] HCl 4 mg HCl 4 mg n HCl 4 mg d a tablet TAKE tablet TAKE tablet [facility] 1 TABLET BY 1 TABLET BY TAKE 1 al MOUTH EVERY MOUTH EVERY TABLET BY Health 12 HOURS 12 HOURS MOUTH Outreac NEEDED NEEDED EVERY 12 h HOURS Program NEEDED oxycodone oxycodone No oxycodone [facility] 10 mg 10 mg 10 mg da tablet tablet tablet [facility] oxycodone-a oxycodone-a No [...] h DAILY DAILY MOUTH Program TWICE DAILY penicillin penicillin No penicillin [place] V potassium V potassium V d a 500 mg 500 mg potassium [facility] p tablet TAKE tablet TAKE 500 mg al 1 TABLET BY 1 TABLET BY tablet Health MOUTH FOUR MOUTH FOUR TAKE 1 O utreac TIMES DAILY TIMES DAILY TABLET BY h MOUTH FOUR Program TIMES DAILY phenazopyri phenazopyri No phenazopyr [place] dine 200 mg dine 200 mg idine 200 da tablet TAKE tablet TAKE mg tablet [facility] 1 TABLET BY 1 TABLET BY TAKE 1 al MOUTH THREE MOUTH THREE TABLET BY Health TIMES DAILY TIMES DAILY MOUTH Outreac NEEDED NEEDED THREE h FOR PAIN FOR PAIN TIMES Progra m DAILY NEEDED FOR PAIN phentermine phentermine No phentermin [facility] 37.5 mg 37.5 mg e 37.5 mg da tablet TAKE tablet TAKE tablet [facility] 1 TABLET BY 1 TABLET BY TAKE 1 al MOUTH EVERY MOUTH EVERY TABLET BY Health DAY DAY MOUTH Outreac EVERY DAY h Program prednisone prednisone No prednisone [place] 10 mg 10 mg 10 mg da tablet tablet tablet [facility] prednisone prednisone No prednisone [place] 20 mg 20 mg 20 mg da tablet tablet tablet [facility] prednisone prednisone No prednisone [place] 5 mg tablet 5 mg tablet 5 mg d a tablet [facility] tn [facility] Program Proctozone- Proctozone- No Proctozone [place] HC 2.5 % HC 2.5 % -HC 2.5 % da topical topical topical [facility] cream cream cream al perineal perineal perineal Hea lth applicator applicator applicator Outreac h Program Stelara 130 Stelara 130 No Stelara [place] mg/26 mL mg/26 mL 130 mg/26 da intravenous intravenous mL E [facility] solution solution intravenou a l s solution Health Outreac h Program Stelara 90 Stelara 90 No Stelara 90 [place] mg/mL mg/mL mg/mL da subcutaneou subcutaneou subcutaneo [facility] s syringe s syringe us syringe tn Health Outreac h Program sucralfate sucralfate No sucralfate [place] 1 gram 1 gram 1 gram da tablet tablet tablet [facility] tn [facility] Program sulfamethox sulfamethox No sulfametho [place] azole 800 azole 800 xazole 800 da mg-trimetho mg-trimetho mg-trimeth [facility] prim 160 mg prim 160 mg oprim 160 al tablet TAKE tablet TAKE mg tablet Health 1 TABLET BY 1 TABLET BY TAKE 1 Outreac MOUTH TWICE MOUTH TWICE TABLET BY h DAILY FOR 7 DAILY FOR 7 MOUTH Program DAYS DAYS TWICE DAILY FOR 7 DAYS Suprep Suprep No Suprep [place] Bowel Prep Bowel Prep Bowel Prep da Kit 17.5 Kit 17.5 Kit 17.5 Epi scop gram-3.13 gram-3.13 gram-3.13 al gram-1.6 gram-1.6 gram-1.6 Hea lth gram oral gram oral gram oral Outreac solution solution solution h Program Symbicort Symbicort No Symbicort [place] 160 mcg-4.5 160 mcg-4.5 160 d a mcg/actuati mcg/actuati mcg-4.5 [facility] on HFA on HFA mcg/actuat al aerosol aerosol ion HFA Health inhaler inhaler aerosol Outrea c INHALE 2 INHALE 2 inhaler h PUFFS BY PUFFS BY INHALE 2 Pro gram MOUTH TWICE MOUTH TWICE PUFFS BY DAILY DAILY MOUTH TWICE DAILY terbinafine terbinafine No terbinafin [place] HCl 250 [...] [facility] cream cream cream al INSERT 1 INSERT 1 INSERT 1 Hea lth APPLICATORF APPLICATORF APPLICATOR Outreac UL UL FUL h VAGINALLY VAGINALLY VAGINALLY Program AT BEDTIME AT BEDTIME AT BEDTIME FOR 7 FOR 7 FOR 7 NIGHTS NIGHTS NIGHTS terconazole terconazole No terconazol [facility] 0.8 % [...] tablet [facility] Program varenicline varenicline No vareniclin [place] 1 mg tablet 1 mg tablet e 1 mg da TAKE 1 TAKE 1 tablet [facility] TABLET BY TABLET BY TAKE 1 al MOUTH TWICE MOUTH TWICE TABLET BY Health DAILY DAILY MOUTH Outreac TWICE h DAILY Program Immunizations Ordered Filled Immunization Date Status Comments [facility] e Immunization Name Name Influenza vaccine, Influenza vaccine, 2021-04-29 Completed [place] quadrivalent, quadrivalent, 11:22:00 Medical Group adjuvanted adjuvanted Moderna SARS-CoV-2 2020-12-28 Completed [facility] Vaccination 00:00:00 of Medicine Moderna SARS-CoV-2 2020-12-28 Completed [facility] Vaccination 00:00:00 of Medicine Moderna SARS-CoV-2 2020-12-28 Completed [facility] Vaccination 00:00:00 of Medicine COVID-19, mRNA, COVID-19, mRNA, 2020-12-25 Completed Mamadou haas LNP-S, PF, 100 LNP-S, PF, 100 00:00:00 Medica l Group mcg/0.5 mL dose mcg/0.5 mL dose (Moderna) (Moderna) influenza, influenza, 2020-02-12 Completed [place] injectable, injectable, 00:00:00 Medical Grou p quadrivalent quadrivalent influenza, influenza, 2019-05-08 Completed [place] injectable, injectable, 14:33:00 Medical Grou p quadrivalent, quadrivalent, preservative free preservative free pneumococcal 2016-10-10 Completed [facility] 23-valent vaccine 22:14:00 Markus Hx influenza 2013-02-01 Completed [facility] vaccine-unspecified 18:41:05 Prachi nn <sup>1</sup> influenza virus 2013-02-01 Completed [facility] vaccine, 05:00:00 Markus inactivated<sup>2</ sup> zoster recombinant zoster recombinant Unknown Completed [facility] Vital Signs Vital Name Observation Time Observation Value Comments Source HEIGHT 2019-12-13 00:00:00 157.5 cm WEIGHT 2019-12-13 00:00:00 65.318 kg HEIGHT 2021-07-02 11:00:00 158.8 cm WEIGHT 2021-07-02 11:00:00 72.349 kg HEIGHT 2021-07-01 10:40:00 158.8 cm WEIGHT 2021-07-01 10:40:00 72.576 kg Height 2021-06-24 00:00:00 62 [facility]in[facility] BMI (Body Mass 2021-06-24 00:00:00 28.9 kg/m2 [facility] therapist radiation Medical Index) Group Body Weight 2021-06-24 00:00:00 2528 [oz_av] [facility] HEIGHT 2021-05-03 09:33:00 157.5 cm WEIGHT 2021-05-03 09:33:00 67.132 kg HEIGHT 2021-05-03 09:33:00 157.5 cm WEIGHT 2021-05-03 09:33:00 67.132 kg Height 2021-04-28 00:00:00 62 [in_i] [facility] BMI (Body Mass 2021-04-28 00:00:00 27.8 kg/m2 [facility] radiation Medical Index) Group Body Weight 2021-04-28 00:00:00 2432 [oz_av] [facility] BP Diastolic 2021-04-22 00:00:00 74 mm[Hg] [facility] Height 2021-04-22 00:00:00 62 [in_i] [facility] BMI (Body Mass 2021-04-22 00:00:00 27.9 kg/m2 [facility] radiation Medical Index) Group BP Systolic 2021-04-22 00:00:00 99 mm[Hg] [facility] Body Weight 2021-04-22 00:00:00 2440 [oz_av] [facility] BP Diastolic 2021-03-29 00:00:00 83 mm[Hg] [facility] Height 2021-03-29 00:00:00 62 [in_i] [facility] BMI (Body Mass 2021-03-29 00:00:00 29.3 kg/m2 [facility] therapist radiation Index) [facility] BP Systolic 2021-03-29 00:00:00 115 mm[Hg] [facility] Body Weight 2021-03-29 00:00:00 160 [lb_av] [facility] Systolic blood 2021-03-12 15:36:00 124 mm[Hg] [facility] pressure Medicine Diastolic blood 2021-03-12 15:36:00 80 mm[Hg] [facility] Medicine Heart rate 2021-03-12 15:36:00 94 /min [facility] Respiratory rate 2021-03-12 15:36:00 18 /min [facility] Body height 2021-03-12 15:36:00 157.5 cm [facility] Body weight 2021-03-12 15:36:00 75.479 kg [facility] BMI 2021-03-12 15:36:00 30.43 kg/m2 [facility] Oxygen saturation in 2021-03-12 15:36:00 90 /min [facility] blood by Medicine Pulse oximetry BP Diastolic 2021-03-02 00:00:00 76 mm[Hg] [facility] Height 2021-03-02 00:00:00 62 [in_i] [facility] BMI (Body Mass 2021-03-02 00:00:00 28.9 kg/m2 [facility] radiation Medical Index) Group BP Systolic 2021-03-02 00:00:00 118 mm[Hg] [facility] Body Weight 2021-03-02 00:00:00 158 [lb_av] [facility] BP Diastolic 2021-02-19 00:00:00 78 mm[Hg] [facility] Height 2021-02-19 00:00:00 62 [in_i] [facility] BMI (Body Mass 2021-02-19 00:00:00 29.1 kg/m2 [facility] radiation Medical Index) Group BP Systolic 2021-02-19 00:00:00 115 mm[Hg] [facility] Body Weight 2021-02-19 00:00:00 2547.2 [oz_av] [facility] BP Diastolic 2021-01-25 00:00:00 96 mm[Hg] [facility] Height 2021-01-25 00:00:00 62 [in_i] [facility] BMI (Body Mass 2021-01-25 00:00:00 29.3 kg/m2 [facility] BP Systolic 2021-01-25 00:00:00 129 mm[Hg] [facility] Body Weight 2021-01-25 00:00:00 2561.6 [oz_av] [facility] Systolic blood 2021-01-19 19:17:00 102 mm[Hg] [facility] pressure Medicine Diastolic blood 2021-01-19 19:17:00 71 mm[Hg] [facility] Medicine Heart rate 2021-01-19 19:17:00 84 /min [facility] Body temperature 2021-01-19 19:17:00 36.28 [facility] Body height 2021-01-19 19:17:00 157.5 cm [facility] Body weight 2021-01-19 19:17:00 70.308 kg [facility] BMI 2021-01-19 19:17:00 28.35 kg/m2 [facility] Oxygen saturation in 2021-01-19 19:17:00 85 /min [facility] Arterial blood by [facility] Pulse oximetry BP Diastolic 2020-12-28 00:00:00 93 mm[Hg] [facility] Height 2020-12-28 00:00:00 62 [in_i] [facility] BMI (Body Mass 2020-12-28 00:00:00 29.7 kg/m2 [facility] BP Systolic 2020-12-28 00:00:00 133 mm[Hg] [facility] Body Weight 2020-12-28 00:00:00 162.2 [lb_av] [facility] BP Diastolic 2020-12-18 00:00:00 71 mm[Hg] [facility] Height 2020-12-18 00:00:00 62 [in_i] [facility] BMI (Body Mass 2020-12-18 00:00:00 29.7 kg/m2 [facility] BP Systolic 2020-12-18 00:00:00 104 mm[Hg] [facility] Body Weight 2020-12-18 00:00:00 2598.4 [oz_av] [facility] BP Diastolic 2020-12-08 00:00:00 68 mm[Hg] [facility] Height 2020-12-08 00:00:00 62 [in_i] [facility] BMI (Body Mass 2020-12-08 00:00:00 30.5 kg/m2 [facility] BP Systolic 2020-12-08 00:00:00 95 mm[Hg] [facility] Body Weight 2020-12-08 00:00:00 2668.8 [oz_av] [facility] BP Diastolic 2020-11-30 00:00:00 76 mm[Hg] [facility] Height 2020-11-30 00:00:00 62 [in_i] [facility] BMI (Body Mass 2020-11-30 00:00:00 30.2 kg/m2 [facility] BP Systolic 2020-11-30 00:00:00 108 mm[Hg] [facility] Body Weight 2020-11-30 00:00:00 2641.6 [oz_av] [facility] BP Diastolic 2020-11-17 00:00:00 64 mm[Hg] [facility] Height 2020-11-17 00:00:00 62 [in_i] [facility] BMI (Body Mass 2020-11-17 00:00:00 30.2 kg/m2 [facility] BP Systolic 2020-11-17 00:00:00 90 mm[Hg] [facility] Body Weight 2020-11-17 00:00:00 2640 [oz_av] [facility] BP Diastolic 2020-10-26 00:00:00 96 mm[Hg] [facility] Height 2020-10-26 00:00:00 62 [in_i] [facility] BMI (Body Mass 2020-10-26 00:00:00 31.2 kg/m2 [facility] BP Systolic 2020-10-26 00:00:00 140 mm[Hg] [facility] Body Weight 2020-10-26 00:00:00 2729.6 [oz_av] [facility] BP Diastolic 2020-10-12 00:00:00 91 mm[Hg] [facility] Height 2020-10-12 00:00:00 62 [in_i] [facility] BMI (Body Mass 2020-10-12 00:00:00 30.4 kg/m2 [facility] Medical Index) Group BP Systolic 2020-10-12 00:00:00 142 mm[Hg] [facility] Body Weight 2020-10-12 00:00:00 2657.6 [oz_av] [facility] BMI (Body Mass 2020-08-12 00:00:00 31.6 kg/m2 [facility] Medical Index) Group Body Weight 2020-08-12 00:00:00 2761.6 [oz_av] [facility] Height 2020-08-12 00:00:00 62 [in_i] [facility] BP Diastolic 2020-07-31 00:00:00 82 mm[Hg] [facility] Height 2020-07-31 00:00:00 62 [in_i] [facility] BMI (Body Mass 2020-07-31 00:00:00 31.6 kg/m2 [facility] Medical Index) Group BP Systolic 2020-07-31 00:00:00 116 mm[Hg] [facility] Body Weight 2020-07-31 00:00:00 172.6 [lb_av] [facility] BP Diastolic 2020-06-23 00:00:00 97 mm[Hg] [facility] Height 2020-06-23 00:00:00 62 [in_i] [facility] BMI (Body Mass 2020-06-23 00:00:00 28.7 kg/m2 [facility] Medical Index) Group BP Systolic 2020-06-23 00:00:00 142 mm[Hg] [facility] Body Weight 2020-06-23 00:00:00 2512 [oz_av] [facility] BP Diastolic 2020-05-27 00:00:00 71 mm[Hg] [facility] Height 2020-05-27 00:00:00 62 [in_i] [facility] BMI (Body Mass 2020-05-27 00:00:00 27.1 kg/m2 [facility] therapist radiation Medical Index) Group BP Systolic 2020-05-27 00:00:00 105 mm[Hg] [facility] Body Weight 2020-05-27 00:00:00 147.9 [lb_av] [facility] BP Diastolic 2020-05-04 00:00:00 76 mm[Hg] [facility] Height 2020-05-04 00:00:00 62 [in_i] [facility] BMI (Body Mass 2020-05-04 00:00:00 28.4 kg/m2 [facility] BP Systolic 2020-05-04 00:00:00 116 mm[Hg] [facility] Body Weight 2020-05-04 00:00:00 2481.6 [oz_av] [facility] BP Diastolic 2020-04-02 00:00:00 70 mm[Hg] [facility] Height 2020-04-02 00:00:00 62 [in_i] [facility] BMI (Body Mass 2020-04-02 00:00:00 27.4 kg/m2 [facility] therapist radiation Medical Index) Group BP Systolic 2020-04-02 00:00:00 101 mm[Hg] [facility] Body Weight 2020-04-02 00:00:00 149.7 [lb_av] [facility] BP Diastolic 2020-03-18 00:00:00 75 mm[Hg] [facility] Height 2020-03-18 00:00:00 62 [in_i] [facility] BMI (Body Mass 2020-03-18 00:00:00 27.3 kg/m2 [facility] therapist radiation Medical Index) Group BP Systolic 2020-03-18 00:00:00 124 mm[Hg] [facility] Body Weight 2020-03-18 00:00:00 2384 [oz_av] [facility] BP Diastolic 2020-01-24 00:00:00 83 mm[Hg] [facility] Height 2020-01-24 00:00:00 62 [in_i] [facility] BMI (Body Mass 2020-01-24 00:00:00 27.3 kg/m2 [facility] BP Systolic 2020-01-24 00:00:00 118 mm[Hg] [facility] Body Weight 2020-01-24 00:00:00 2384 [oz_av] [facility] BP Diastolic 2020-01-17 00:00:00 71 mm[Hg] [facility] Height 2020-01-17 00:00:00 62 [in_i] [facility] BMI (Body Mass 2020-01-17 00:00:00 27.1 kg/m2 [facility] BP Systolic 2020-01-17 00:00:00 107 mm[Hg] [facility] Body Weight 2020-01-17 00:00:00 148.2 [lb_av] [facility] HEIGHT 2019-12-13 00:00:00 157.5 cm WEIGHT 2019-12-13 00:00:00 65.318 kg Body height 2019-12-17 18:52:00 157.5 cm [facility] Body weight 2019-12-17 18:52:00 68.04 kg [facility] BMI 2019-12-17 18:52:00 27.44 kg/m2 [facility] Body height 2019-12-17 18:52:00 157.5 cm [facility] Body weight 2019-12-17 18:52:00 68.04 kg [facility] BMI 2019-12-17 18:52:00 27.44 kg/m2 [facility] BP Diastolic 2019-12-03 00:00:00 73 mm[Hg] [facility] Height 2019-12-03 00:00:00 62 [in_i] [facility] BMI (Body Mass 2019-12-03 00:00:00 27.1 kg/m2 [facility] BP Systolic 2019-12-03 00:00:00 105 mm[Hg] [facility] Body Weight 2019-12-03 00:00:00 148 [lb_av] [facility] BP Diastolic 2019-11-07 00:00:00 73 mm[Hg] [facility] Height 2019-11-07 00:00:00 62 [in_i] [facility] BMI (Body Mass 2019-11-07 00:00:00 27.1 kg/m2 [facility] BP Systolic 2019-11-07 00:00:00 105 mm[Hg] [facility] Body Weight 2019-11-07 00:00:00 2369 [oz_av] [facility] BP Diastolic 2019-10-15 00:00:00 94 mm[Hg] [facility] Height 2019-10-15 00:00:00 62 [in_i] [facility] BMI (Body Mass 2019-10-15 00:00:00 27.8 kg/m2 [facility] BP Systolic 2019-10-15 00:00:00 135 mm[Hg] [facility] Body Weight 2019-10-15 00:00:00 2432 [oz_av] [facility] BP Diastolic 2019-07-12 00:00:00 77 mm[Hg] [facility] Height 2019-07-12 00:00:00 62 [in_i] [facility] BMI (Body Mass 2019-07-12 00:00:00 27.7 kg/[facility]2 [facility] BP Systolic 2019-07-12 00:00:00 101 mm[Hg] [facility] Body Weight 2019-07-12 00:00:00 2425 [oz_av] [facility] Systolic blood 2019-07-11 16:12:00 111 mm[Hg] [facility] pressure Medicine Diastolic blood 2019-07-11 16:12:00 77 mm[Hg] [facility] pressure Medicine Heart rate 2019-07-11 16:12:00 99 /min [facility] Body temperature 2019-07-11 16:12:00 36.72 Marguerite [facility] Body height 2019-07-11 16:12:00 157.5 cm [facility] Body weight 2019-07-11 16:12:00 65.772 kg [facility] BMI 2019-07-11 16:12:00 26.52 kg/m2 [facility] Systolic blood 2019-07-11 16:12:00 111 mm[Hg] [facility] pressure Medicine Diastolic blood 2019-07-11 16:12:00 77 mm[Hg] [facility] pressure Medicine Heart rate 2019-07-11 16:12:00 99 /min [facility] Body temperature 2019-07-11 16:12:00 36.72 Marguerite [facility] Body height 2019-07-11 16:12:00 157.5 cm [facility] Body weight 2019-07-11 16:12:00 65.772 kg [facility] BMI 2019-07-11 16:12:00 26.52 kg/m2 [facility] Systolic blood 2019-06-19 15:35:00 138 mm[Hg] [facility] pressure Medicine Diastolic blood 2019-06-19 15:35:00 86 mm[Hg] [facility] pressure Medicine Heart rate 2019-06-19 15:35:00 78 /min [facility] Respiratory rate 2019-06-19 15:35:00 16 /min [facility] Body height 2019-06-19 15:35:00 157.5 cm [facility] Body weight 2019-06-19 15:35:00 66.588 kg [facility] BMI 2019-06-19 15:35:00 26.85 kg/m2 [facility] Systolic blood 2019-06-19 15:35:00 138 mm[Hg] [facility] pressure Medicine Diastolic blood 2019-06-19 15:35:00 86 mm[Hg] [facility] Medicine Heart rate 2019-06-19 15:35:00 78 /min [facility] Respiratory rate 2019-06-19 15:35:00 16 /min [facility] Body height 2019-06-19 15:35:00 157.5 cm [facility] Body weight 2019-06-19 15:35:00 66.588 kg [facility] BMI 2019-06-19 15:35:00 26.85 kg/m2 [facility] Systolic blood 2019-06-19 16:57:00 127 mm[Hg] [facility] pressure Medicine Diastolic blood 2019-06-19 16:57:00 70 mm[Hg] [facility] pressure Medicine Heart rate 2019-06-19 16:57:00 95 /min [facility] ol[facility] of [facility] Body temperature 2019-06-19 16:57:00 36.56 Marguerite [facility] Respiratory rate 2019-06-19 16:57:00 18 /min [facility] Body height 2019-06-19 16:57:00 157.5 cm [facility] ollege of [facility] Body weight 2019-06-19 16:57:[facility] BMI 2019-06-19 16:57:00 26.89 [facility] Systolic blood 2019-06-19 16:57:00 127 mm[Hg] [facility] pressure Medicine Diastolic blood 2019-06-19 16:57:00 70 mm[Hg] [facility] Medicine Heart rate 2019-06-19 16:57:00 95 /min [facility] ollege of [facility] Body temperature 2019-06-19 16:57:00 36.56 Marguerite [facility] Respiratory rate 2019-06-19 16:57:00 18 /min [facility] Body height 2019-06-19 16:57:00 [facility] Body weight 2019-06-19 16:57:00 66.679 kg [facility] BMI 2019-06-19 16:57:00 [facility]89 [facility] blood 2019-06-12 14:20:00 100 mm[Hg] [facility] pressure Medicine Diastolic blood 2019-06-12 14:20:00 69 mm[Hg] [facility] pressure Medicine Heart rate 2019-06-12 14:20:00 98 /min [facility] ollege of [facility] Body temperature 2019-06-12 14:20:00 37.11 Marguerite [facility] Respiratory rate 2019-06-12 14:20:00 16 /min [facility] Body height 2019-06-12 14:20:00 157.5 cm [facility] Body weight 2019-06-12 14:20:00 67.223 kg [facility] BMI 2019-06-12 14:20:00 27.11 kg/m2 [facility] Systolic blood 2019-06-12 14:20:00 100 mm[Hg] [facility] pressure Medicine Diastolic blood 2019-06-12 14:20:00 69 mm[Hg] [facility] Medicine Heart rate 2019-06-12 14:20:00 98 /min [facility] Body temperature 2019-06-12 14:20:00 37.11 Marguerite [facility] Respiratory rate 2019-06-12 14:20:00 16 /min [facility] Body height 2019-06-12 14:20:00 157.5 cm [facility] ollege of [facility] Body weight 2019-06-12 14:20:00 67.223 kg [facility] BMI 2019-06-12 14:20:00 27.11 [facility]m2 [facility] BP Diastolic 2019-05-08 00:00:00 81 mm[Hg] [facility] Height 2019-05-08 00:00:00 62 [in_i] [facility] BMI (Body Mass 2019-05-08 00:00:00 27.3 kg/m2 [facility] therapist radiation Medical Index) Group BP Systolic 2019-05-08 00:00:00 123 mm[Hg] [facility] Body Weight 2019-05-08 00:00:00 2384 [oz_av] [facility] BP Diastolic 2019-01-29 00:00:00 64 mm[Hg] [facility] Height 2019-01-29 00:00:00 62 [in_i] [facility] BMI (Body Mass 2019-01-29 00:00:00 27.9 kg/m2 [facility] therapist radiation Medical Index) Group BP Systolic 2019-01-29 00:00:00 108 mm[Hg] [facility] Body Weight 2019-01-29 00:00:00 152.3 [lb_av] [facility] BP Diastolic 2019-01-25 00:00:00 71 mm[Hg] [facility] Height 2019-01-25 00:00:00 62 [in_i] [facility] BMI (Body Mass 2019-01-25 00:00:00 28.2 kg/m2 [facility] Medical Index) Group BP Systolic 2019-01-25 00:00:00 91 mm[Hg] [facility] Body Weight 2019-01-25 00:00:00 154.2 [lb_av] [facility] BP Diastolic 2019-01-07 00:00:00 80 mm[Hg] [facility] Height 2019-01-07 00:00:00 62 [in_i] [facility] BMI (Body Mass 2019-01-07 00:00:00 29 kg/m2 [facility] Medical Index) Group BP Systolic 2019-01-07 00:00:00 109 mm[Hg] [facility] Body Weight 2019-01-07 00:00:00 158.6 [lb_av] [facility] BP Diastolic 2018-12-27 00:00:00 67 mm[Hg] [facility] Height 2018-12-27 00:00:00 62 [in_i] [facility] BMI (Body Mass 2018-12-27 00:00:00 27.9 kg/m2 [facility] Medical Index) Group BP Systolic 2018-12-27 00:00:00 92 mm[Hg] [facility] Body Weight 2018-12-27 00:00:00 152.3 [lb_av] [facility] Systolic blood 2018-12-18 15:04:00 110 mm[Hg] [facility] of pressure Medicine Diastolic blood 2018-12-18 15:04:00 60 mm[Hg] [facility] Medicine Heart rate 2018-12-18 15:04:00 74 /min [facility] Body temperature 2018-12-18 15:04:00 36.67 Marguerite [facility] Respiratory rate 2018-12-18 15:04:00 16 /min [facility] Body height 2018-12-18 15:04:00 157.5 cm [facility] Body weight 2018-12-18 15:04:00 70.67 kg [facility] 2018-12-18 15:04:00 28.50 kg/m2 [facility] Systolic blood 2018-12-18 15:04:00 110 mm[Hg] [facility] of pressure Medicine Diastolic blood 2018-12-18 15:04:00 60 mm[Hg] [facility] Medicine Heart rate 2018-12-18 15:04:00 74 /min [facility] Body temperature 2018-12-18 15:04:00 36.67 Marguerite [facility] Respiratory rate 2018-12-18 15:04:00 16 /min [facility] Body height 2018-12-18 15:04:00 157.5 cm [facility] Body weight 2018-12-18 15:04:00 70.67 kg [facility] BMI 2018-12-18 15:04:00 28.50 kg/m2 [facility] BP Diastolic 2018-12-17 00:00:00 93 mm[Hg] [facility] Height 2018-12-17 00:00:00 62 [in_i] [facility] BMI (Body Mass 2018-12-17 00:00:00 28.3 kg/m2 [facility] BP Systolic 2018-12-17 00:00:00 137 mm[Hg] [facility] Body Weight 2018-12-17 00:00:00 2480 [oz_av] [facility] BP Diastolic 2018-12-07 00:00:00 73 mm[Hg] [facility] Height 2018-12-07 00:00:00 62 [in_i] [facility] BMI (Body Mass 2018-12-07 00:00:00 30 kg/m2 [facility] BP Systolic 2018-12-07 00:00:00 145 mm[Hg] [facility] Body Weight 2018-12-07 00:00:00 2624 [oz_av] [facility] BP Diastolic 2018-10-17 00:00:00 90 mm[Hg] [facility] Height 2018-10-17 00:00:00 62 [in_i] [facility] BMI (Body Mass 2018-10-17 00:00:00 27.3 kg/m2 [facility] Medical Index) Group BP Systolic 2018-10-17 00:00:00 153 mm[Hg] [facility] Body Weight 2018-10-17 00:00:00 2384 [oz_av] [facility] BP Diastolic 2018-09-17 00:00:00 84 mm[Hg] [facility] Height 2018-09-17 00:00:00 62 [in_i] [facility] BMI (Body Mass 2018-09-17 00:00:00 27.3 kg/m2 [facility] Medical Index) Group BP Systolic 2018-09-17 00:00:00 120 mm[Hg] [facility] Body Weight 2018-09-17 00:00:00 2384 [oz_av] [facility] BP Diastolic 2018-08-29 00:00:00 80 mm[Hg] [facility] Height 2018-08-29 00:00:00 62 [in_i] [facility] BMI (Body Mass 2018-08-29 00:00:00 27.3 kg/m2 [facility] Medical Index) Group BP Systolic 2018-08-29 00:00:00 105 mm[Hg] [facility] Body Weight 2018-08-29 00:00:00 2384 [oz_av] [facility] BP Diastolic 2018-08-15 00:00:00 94 mm[Hg] [facility] Height 2018-08-15 00:00:00 62 [in_i] [facility] BMI (Body Mass 2018-08-15 00:00:00 29.1 kg/m2 [facility] Index) Group BP Systolic 2018-08-15 00:00:00 136 mm[Hg] [facility] Body Weight 2018-08-15 00:00:00 2544 [oz_av] [facility] Systolic blood 2021-05-25 20:58:00 140 mm[Hg] [facility] pressure Diastolic blood 2021-05-25 20:58:00 89 mm[Hg] [facility] pressure Heart rate 2021-05-25 20:58:00 89 /min [facility] Body height 2021-05-25 20:58:00 157.5 cm [facility] Body weight 2021-05-25 20:58:00 71.668 kg [facility] BMI 2021-05-25 20:58:00 28.90 kg/m2 [facility] Respiratory rate 2021-05-10 21:40:00 20 /min [facility] Oxygen saturation in 2021-05-10 21:40:00 94 /min [facility] Arterial blood by Pulse oximetry Body temperature 2021-05-10 21:15:00 36.67 Marguerite [facility] Systolic blood 2021-05-03 13:00:00 142 mm[Hg] [facility] Diastolic blood 2021-05-03 13:00:00 97 mm[Hg] [facility] Heart rate 2021-05-03 13:00:00 63 /min [facility] Respiratory rate 2021-05-03 13:00:00 8 /min [facility] Oxygen saturation in 2021-05-03 13:00:00 95 /min [facility] Arterial blood by [facility] Ce [facility]ter Pulse oximetry Body temperature 2021-05-03 09:33:00 36.61 Marguerite [facility] Body height 2021-05-03 09:33:00 157.5 cm [facility] Body weight 2021-05-03 09:33:00 67.132 kg [facility] BMI 2021-05-03 09:33:00 27.07 kg/m2 [facility] Respitory Rate 2020-08-03 13:45:00 [facility] Systolic (mm Hg) 2020-08-03 13:45:00 Isreal [facility] Diastolic (mm Hg) 2020-08-03 13:45:00 Mem [facility] Respitory Rate 2020-08-03 13:30:00 [facility] [place] Systolic (mm Hg) 2020-08-03 13:30:00 Isreal [facility] Diastolic (mm Hg) 2020-08-03 13:30:00 Mem [facility] [place] Respitory Rate 2020-08-03 13:15:00 [facility] Systolic (mm Hg) 2020-08-03 13:15:00 [facility] Diastolic (mm Hg) 2020-08-03 13:15:00 [facility] Height 2020-07-31 19:34:00 157.48 cm [facility] [place] Weight 2020-07-31 19:34:00 [facility] BMI Calculated 2020-07-31 19:34:00 [facility] [place] Respitory Rate 2020-05-12 01:00:00 [facility] [place] Systolic (mm Hg) 2020-05-12 01:00:00 [facility]real [facility] Diastolic (mm Hg) 2020-05-12 01:00:00 Mem orial [place] Respitory Rate 2020-05-12 00:45:00 [facility] [place] Respitory Rate 2020-05-11 23:45:00 [facility] Systolic (mm Hg) 2020-05-11 23:45:00 [facility] [place] Diastolic (mm Hg) 2020-05-11 23:45:00 Mem [facility] [place] Systolic (mm Hg) 2020-05-11 23:30:00 Isreal [facility] [place] Diastolic (mm Hg) 2020-05-11 23:30:00 [facility] Heart Rate 2020-05-11 16:14:00 [facility] [place] Height 2020-05-07 16:08:00 157.48 cm [facility] Weight 2020-05-07 16:08:00 [facility] [place] BMI Calculated 2020-05-07 16:08:00 [facility] [place] Temperature Oral (F) 2017-02-18 23:13:00 98.9 F [facility] Heart Rate 2017-02-18 23:13:00 [facility] Respitory Rate 2017-02-18 23:13:00 [facility] Diastolic (mm Hg) 2017-02-18 23:13:00 Mem [facility] [place] Systolic (mm Hg) 2017-02-18 23:13:00 [facility]real [facility] [place] Diastolic (mm Hg) 2017-02-18 21:48:00 Mem [facility] [place] Respitory Rate 2017-02-18 21:48:00 [facility] Systolic (mm Hg) 2017-02-18 21:48:00 [facility]real [facility] [place] Heart Rate 2017-02-18 21:48:00 [facility] [place] Weight 2017-02-18 20:38:00 [facility] Temperature Oral (F) 2017-02-18 20:38:00 98.9 F [facility] [place] Respitory Rate 2017-02-18 20:38:00 [facility] Heart Rate 2017-02-18 20:38:00 [facility] Systolic (mm Hg) 2017-02-18 20:38:00 [facility]real [facility] [place] Diastolic (mm Hg) 2017-02-18 20:38:00 [facility] Systolic (mm Hg) 2016-10-12 12:36:00 [facility] Diastolic (mm Hg) 2016-10-12 12:36:00 [facility] Heart Rate 2016-10-12 12:36:00 [facility] [place] Temperature Oral (F) 2016-10-12 12:36:00 98.1 F [facility] Respitory Rate 2016-10-12 12:36:00 [facility] Temperature Oral (F) 2016-10-12 04:32:00 97.7 F [facility] [place] Heart Rate 2016-10-12 04:32:00 [facility] [place] Systolic (mm Hg) 2016-10-12 04:32:00 [facility] Diastolic (mm Hg) 2016-10-12 04:32:00 [facility] Respitory Rate 2016-10-12 04:32:00 [facility] [place] Temperature Oral (F) 2016-10-12 00:11:00 98.2 F [facility] [place] Systolic (mm Hg) 2016-10-12 00:11:00 [facility] Diastolic (mm Hg) 2016-10-12 00:11:00 Mem [facility] Respitory Rate 2016-10-12 00:11:00 Memori al [facility] Rate 2016-10-12 00:11:00 [facility] BMI Calculated 2016-10-10 07:28:00 [facility] Weight 2016-10-10 07:28:00 [facility] Height 2016-10-10 07:28:00 157.48 cm [facility] Weight 2016-10-10 03:22:00 [facility] Temperature Oral (F) 2016-02-10 21:38:00 98.2 F [facility] Respitory Rate 2016-02-10 21:38:00 [facility] [place] Heart Rate 2016-02-10 21:38:00 [facility] Systolic (mm Hg) 2016-02-10 21:38:00 [facility] Diastolic (mm Hg) 2016-02-10 21:38:00 [facility] Height 2016-02-10 18:31:00 157.48 cm [facility] Weight 2016-02-10 18:31:00 [facility] BMI Calculated 2016-02-10 18:31:00 [facility] Systolic (mm Hg) 2016-02-10 18:31:00 [facility] Diastolic (mm Hg) 2016-02-10 18:31:00 [facility] [place] Respitory Rate 2016-02-10 18:31:00 [facility] [place] Heart Rate 2016-02-10 18:31:00 [facility] Temperature Oral (F) 2016-02-10 18:31:00 98.4 F [facility] Temperature Oral (F) 2014-08-13 16:57:00 98.1 F [facility] Heart Rate 2014-08-13 16:57:00 [facility] Systolic (mm Hg) 2014-08-13 16:57:00 [facility] Diastolic (mm Hg) 2014-08-13 16:57:00 [facility] [place] Respitory Rate 2014-08-13 16:57:00 [facility] Respitory Rate 2014-08-13 15:44:00 [facility] Heart Rate 2014-08-13 15:44:00 [facility] Systolic (mm Hg) 2014-08-13 15:44:00 [facility] Diastolic (mm Hg) 2014-08-13 15:44:00 [facility] Heart Rate 2014-08-13 14:30:00 [facility] Respitory Rate 2014-08-13 14:30:00 [facility] [place] Systolic (mm Hg) 2014-08-13 14:30:00 [facility] [place] Diastolic (mm Hg) 2014-08-13 14:30:00 [facility] [place] Weight 2014-08-13 11:54:00 [facility] BMI Calculated 2014-08-13 11:54:00 [facility] [place] Height 2014-08-13 11:54:00 170.18 cm [facility] Temperature Oral (F) 2014-08-13 11:54:00 97.4 F [facility] Rate 2014-03-09 17:53:00 [facility] Temperature Oral (F) 2014-03-09 17:53:00 97.9 F [facility] Systolic (mm Hg) 2014-03-09 17:53:00 [facility] Respitory Rate 2014-03-09 17:53:00 [facility] [place] Diastolic (mm Hg) 2014-03-09 17:53:00 [facility] [place] Diastolic (mm Hg) 2014-03-09 15:56:00 [facility] Systolic (mm Hg) 2014-03-09 15:56:00 [facility] Respitory Rate 2014-03-09 15:56:00 [facility] [place] Heart Rate 2014-03-09 15:56:00 [facility] Temperature Oral (F) 2014-03-09 15:56:00 97.9 F [facility] Weight 2014-03-09 11:40:00 [facility] Height 2014-03-09 11:40:00 160.02 cm [facility] BMI Calculated 2014-03-09 11:40:00 [facility] Temperature Oral (F) 2014-03-09 11:40:00 98.1 F [facility] Heart Rate 2014-03-09 11:40:00 [facility] Respitory Rate 2014-03-09 11:40:00 [facility] Diastolic (mm Hg) 2014-03-09 11:40:00 [facility] [place] Systolic (mm Hg) 2014-03-09 11:40:00 [facility] Systolic (mm Hg) 2014-01-14 23:08:00 [facility] [place] Diastolic (mm Hg) 2014-01-14 23:08:00 [facility] Temperature Oral (F) 2014-01-14 23:08:00 98.3 F [facility] Heart Rate 2014-01-14 23:08:00 [facility] Respitory Rate 2014-01-14 23:08:00 [facility] [place] Respitory Rate 2014-01-14 20:30:00 [facility] Systolic (mm Hg) 2014-01-14 20:30:00 [facility] [place] Diastolic (mm Hg) 2014-01-14 20:30:00 [facility] Heart Rate 2014-01-14 20:30:00 [facility] Systolic (mm Hg) 2014-01-14 16:36:00 [facility] [place] Respitory Rate 2014-01-14 16:36:00 [facility] Diastolic (mm Hg) 2014-01-14 16:36:00 [facility] [place] Heart Rate 2014-01-14 16:36:00 [facility] Temperature Oral (F) 2014-01-14 13:03:00 99.1 F [facility] Height 2014-01-14 13:03:00 157.48 cm [facility] Weight 2014-01-14 13:03:00 [facility] BMI Calculated 2014-01-14 13:03:00 [facility] [place] Systolic (mm Hg) 2014-01-14 07:25:00 [facility] Diastolic (mm Hg) 2014-01-14 07:25:00 [facility] [place] Respitory Rate 2014-01-14 07:25:00 [facility] Heart Rate 2014-01-14 07:25:00 [facility] Temperature Oral (F) 2014-01-14 07:25:00 98.5 F [facility] Rate 2014-01-14 03:04:00 [facility] Respitory Rate 2014-01-14 03:04:00 [facility] [place] Temperature Oral (F) 2014-01-14 03:04:00 98.8 F [facility] Diastolic (mm Hg) 2014-01-14 03:04:00 [facility] [place] Systolic (mm Hg) 2014-01-14 03:04:00 [facility] [place] Weight 2014-01-14 03:04:00 [facility] Temperature Oral (F) 2013-11-22 16:34:00 98.6 F [facility] Rate 2013-11-22 16:34:00 [facility] Systolic (mm Hg) 2013-11-22 16:34:00 [facility] [place] Respitory Rate 2013-11-22 16:34:00 [facility] Diastolic (mm Hg) 2013-11-22 16:34:00 [facility] [place] BMI Calculated 2013-11-22 15:46:00 [facility] Height 2013-11-22 15:46:00 157[facility]48 [facility] 2013-11-22 15:46:00 [facility] [place] Respitory Rate 2013-11-22 15:46:00 [facility] al [facility] Heart Rate 2013-11-22 15:46:00 [facility] [place] Temperature Oral (F) 2013-11-22 15:46:00 98.1 F [facility] Systolic (mm Hg) 2013-11-22 15:46:00 [facility] [place] Diastolic (mm Hg) 2013-11-22 15:46:00 [facility] orial [facility] Procedures Procedure Date / Time Performing Clinician Source Performed CO AN ELECTIVE 2021-05-10 15:58:52 [facility] B REPAIR, HERNIA, INCISIONAL 2021-05-10 15:40:00 [facility] OR VENTRAL E. POC GLUCOSE 2021-05-10 15:26:00 [facility] E. ABO AND RH CONFIRMATION 2021-05-10 14:39:00 [facility] ECG PRE/POST OP 2021-05-06 17:50:26 [facility]IM[facility] GFR 2021-05-06 17:44:00 [facility] COVID-19 QUALITATIVE 2021-05-06 17:44:00 [facility] RT-PCR HC COMPLETE BLD COUNT 2021-05-06 17:44:00 [facility] W/AUTO DIFF COMPREHENSIVE METABOLIC 2021-05-06 17:44:00 [facility] PANEL TYPE AND SCREEN 2021-05-06 17:44:00 [facility] HEMOGLOBIN A1C 2021-05-06 17:44:00 [facility] MR LOWER EXTREMITY JOINT 2021-05-04 08:46:00 Elly Dodson [facility] - ONLY WITHOUT IV CONTRAST [facility] RIGHT IR PICC LINE PLACEMENT 2021-05-03 12:11:00 QuocSuzie mir O. C [facility] - OLDER THAN 5 YRS [facility] COMPREHENSIVE METABOLIC 2021-01-19 21:00[facility] W/AUTO DIFF WITH 2021-01-19 21:00[facility] URINALYSIS AUTO W/SCOPE 2021-01-19 21:00:00 Quocafshinnh [facility] CULTURE, URINE/SENSITIVITY 2021-01-19 21:00:00 [facility] PELVIS WITH & WITHOUT 2020-11-20 11:45:[address] [facility] IV CONTRAST [facility] MR ABDOMEN WITH & WITHOUT 2020-11-20 11:45:[address] [facility] IV CONTRAST [facility] Knee Surgery 2020-08-03 00:00:00 [facility] Procedure on Knee 2020-05-11 00:00:00 [facility] Nerve Block 2020-03-03 00:00:00 [facility] Colonoscopy 2020-01-07 00:00:00 [facility] MRI, knee, w/o contrast 2019-11-19 00:00:00 [facility] US, doppler, venous 2019-10-15 00:00:00 [facility] XR, knee, 3 view 2019-10-15 00:00:00 [facility]anna Thompson [facility] unlisted imaging order 2018-12-27 00:00:00 [facility] Hysterectomy 2006-05-01 00:00:00 [facility] Cholecystectomy [facility] Appendectomy [facility] Nasal operation [facility] Arthroscopy of ankle [facility] Knee [facility] replacement<sup>1</sup> Colon operation [facility] Hysterectomy [facility] section [facility] n Large Intestine Excision [facility] [place] Caesarean Section [place] [facility] Total Hysterectomy [place] [facility] Plan of Care Planned Activity Planned Date Details Comments Source Future Scheduled 2030-01-[address] [facility] Test 00:00:00 malignant neoplasm of Medica l Center colon (procedure) [code = 752008442] Future Scheduled 2030-01-[address] [facility] Test 00:00:00 malignant neoplasm of [facility] Center colon (procedure) [code = 374707289] Diagnostic Test 2021-06-24 SARS CoV 2 RNA [place] Pending 00:00:00 (COVID-19), QL, 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, 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 [code = SARS CoV 2 RNA (COVID-19), QL, 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, 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] Future Scheduled 2021-06-09 Hepatitis C screening [facility] Test 07:04:40 (procedure) [code = Hospital 431137353] Future Scheduled 2021-06-09 Screening for [facility] Test 07:04:40 malignant neoplasm of Hospit al cervix (procedure) [code = 671714526] Future Scheduled 2021-06-09 INFLUENZA VACCINE Method ist Test 07:04:40 [code = INFLUENZA Hospital VACCINE] Future Scheduled 2021-06-09 COVID-19 VACCINE (3 - [facility] Test 07:04:40 Booster) [code = Hospital COVID-19 VACCINE (3 - Booster)] Future Scheduled 2021-05-[address] [facility] - Test 00:00:00 (12+) [code = Medical Center DEPRESSION SCREENING (12+)] Future Scheduled 2021-05-[address] [facility] - Test 00:00:00 (12+) [code = Medical Center DEPRESSION SCREENING (12+)] Future Scheduled 2021-03-12 ZOSTER VACCINE (1 of [facility] Test 13:58:55 2) [code = ZOSTER of Medicin e VACCINE (1 of 2)] Future Scheduled 2021-03-12 Screening for [facility] Test 13:58:55 malignant neoplasm of of Med icine colon (procedure) [code = 347149725] Future Scheduled 2021-03-12 Screening for [facility] Col lege Test 13:58:55 malignant neoplasm of of Med icine breast (procedure) [code = 147311176] Future Scheduled 2021-03-12 Pneumococcal Combined [employer] Test 13:58:55 (1 of 2 - PPSV23) of Medicin e [code = Pneumococcal Combined (1 of 2 - PPSV23)] Future Scheduled 2021-03-12 TETANUS SHOT (ADULT) [employer] Test 13:58:55 [code = TETANUS SHOT of Medi cine (ADULT)] Future Scheduled 2021-03-12 Hepatitis C screening [employer] Test 13:58:55 (procedure) [code = of Medic ine 504734076] Future Scheduled 2021-03-12 Human immunodeficiency [facility] Test 13:58:55 virus screening of Medicine (procedure) [code = 365698265] Future Scheduled 2021-03-12 Screening for [facility] Col lege Test 13:58:55 malignant neoplasm of of Med icine cervix (procedure) [code = 720452042] Future Scheduled 2021-03-12 MEDICARE AWV (Initial) [facility] Test 13:58:55 [code = MEDICARE AWV of Medi cine (Initial)] Future Scheduled 2021-03-12 BMI FOLLOW UP PLAN [facility] Test 13:58:55 [code = BMI FOLLOW UP of Med icine PLAN] Future Scheduled 2021-03-12 FLU VACCINE > 6 MONTHS [employer] Test 13:58:55 [code = FLU VACCINE > of Med icine 6 MONTHS] Future Scheduled 2021-03-12 COVID-19 Vaccine (2 - [employer] Test 13:58:55 Moderna 2-dose series) of Me avendaño [code = COVID-19 Vaccine (2 - Moderna 2-dose series)] Future Scheduled 2021-03-12 CULTURE, Ordered: [facility] Ronny ege Test 09:53:03 URINE/SENSITIVITY ON 03/12/2021 of Intentiva cine ALL [code = 99552-9] Future Scheduled 2021-03-12 URINALYSIS AUTO Ordered: [facility] [employer] Test 09:52:45 W/SCOPE [code = 03/12/2021 of Medicine 25906-3] Future Scheduled 2021-01-25 COVID-19 VACCINE ([facility] Test [facility] Moderna 2-dose series) Medic al Center [code = COVID-19 VACCINE (2 - Moderna 2-dose series)] Future Scheduled 2021-01-25 COVID-19 VACCINE (2 - [facility] Test 00:00:00 Moderna 2-dose series) Medic al Center [code = COVID-19 VACCINE (2 - Moderna 2-dose series)] Future Scheduled 2021-01-20 Screening for [facility] Col [facility]ge Test 12:19:04 malignant neoplasm of of Med icine breast (procedure) [code = 443975519] Future Scheduled 2021-01-20 TETANUS SHOT (ADULT) [employer] Test 12:19:04 [code = TETANUS SHOT of Medi cine (ADULT)] Future Scheduled 2021-01-20 Hepatitis C screening [employer] Test 12:19:04 (procedure) [code = of Medic ine 633272058] Future Scheduled 2021-01-20 Human immunodeficiency [employer] Test 12:19:04 virus screening of Medicine (procedure) [code = 564052413] Future Scheduled 2021-01-20 Screening for [facility] Test 12:19:04 malignant neoplasm of of Med icine cervix (procedure) [code = 999038611] Future Scheduled 2021-01-20 MEDICARE AWV (Initial) [employer] Test 12:19:04 [code = MEDICARE AWV of Medi cine (Initial)] Future Scheduled 2021-01-20 BMI FOLLOW UP PLAN [employer] Test 12:19:04 [code = BMI FOLLOW UP of Med icine PLAN] Future Scheduled 2021-01-20 FLU VACCINE > 6 MONTHS [employer] Test 12:19:04 [code = FLU VACCINE > of Med icine 6 MONTHS] Future Scheduled 2021-01-20 COVID-19 Vaccine (2 - [employer] Test 12:19:04 Moderna 2-dose series) of Me dicine [code = COVID-19 Vaccine (2 - Moderna 2-dose series)] Future Scheduled 2021-01-20 ZOSTER VACCINE (1 of [employer] Test 12:19:04 2) [code = ZOSTER of Medicin e VACCINE (1 of 2)] Future Scheduled 2021-01-20 Screening for [facility] Col [facility]ge Test 12:19:04 malignant neoplasm of of Med icine colon (procedure) [code = 765384023] Future Scheduled 2021-01-20 Screening for [facility] Test 12:19:04 malignant neoplasm of of Med icine breast (procedure) [code = 031496526] Future Scheduled 2021-01-20 TETANUS SHOT (ADULT) [employer] Test 12:19:04 [code = TETANUS SHOT of Medi cine (ADULT)] Future Scheduled 2021-01-20 Hepatitis C screening [facility] Test 12:19:04 (procedure) [code = of Medic ine 247595454] Future Scheduled 2021-01-20 [facility] virus screening of Medicine (procedure) [code = 935631359] Future Scheduled 2021-01-20 Screening for [facility] Col [facility]ge Test 12:19:04 malignant neoplasm of of Med icine cervix (procedure) [code = 827253903] Future Scheduled 2021-01-20 [facility] 12:19:04 [code = MEDICARE AWV of Medi cine (Initial)] Future Scheduled 2021-01-20 BMI FOLLOW UP PLAN [facility] Test 12:19:04 [code = BMI FOLLOW UP of Med icine PLAN] Future Scheduled 2021-01-20 FLU VACCINE > 6 MONTHS [facility] Test 12:19:04 [code = FLU VACCINE > of Med icine 6 MONTHS] Future Scheduled 2021-01-20 COVID-19 [facility] Moderna 2-dose series) of Me dicine [code = COVID-19 Vaccine (2 - Moderna 2-dose series)] Future Scheduled 2021-01-20 ZOSTER VACCINE ([address] [place] [facility] Test 12:19:04 2) [code = ZOSTER of Medicin e VACCINE (1 of 2)] Future Scheduled 2021-01-20 Screening for [facility] Col [facility]ge Test 12:19:04 malignant neoplasm of of Med icine colon (procedure) [code = 067520819] Future Scheduled 2021-01-19 CULTURE, [facility] Test 14:59:42 URINE/SENSITIVITY ON of Medi cine ALL [code = 32753-8] Future Scheduled 2021-01-19 CULTURE, [facility] Test 14:59:42 URINE/SENSITIVITY ON of Medi cine ALL [code = 36670-0] Future Scheduled 2020-12-30 INFLUENZA VACCINE (#1) [facility]00 [code = INFLUENZA Medical Ce nter VACCINE (#1)] Future Scheduled 2020-12-30 INFLUENZA VACCINE (#1) [facility] Test 00:00:00 [code = INFLUENZA Medical Ce nter VACCINE (#1)] Future Scheduled 2016-09-[address] [facility] Test 00:00:00 (procedure) [code = [facility] 60093416] Future Scheduled 2016-09-[address] - Test 00:00:00 (procedure) [code = [facility] 04572450] Future Scheduled 1992-09-[address] [facility] Test 00:00:00 [facility] cervix (procedure) [code = 838221418] Future Scheduled 1992-09-[address] [facility] - Test 00:00:00 [facility] cervix (procedure) [code = 996743340] Future Scheduled 1990-09-13 DTAP/TDAP/TD VACCINES [facility] Test 00:00:00 (1 - Tdap) [code = Medical C enter DTAP/TDAP/TD VACCINES (1 - Tdap)] Future Scheduled 1990-09-13 DTAP/TDAP/TD VACCINES [facility] - Test 00:00:00 (1 - Tdap) [code = Medical C enter DTAP/TDAP/TD VACCINES (1 - Tdap)] Future Scheduled 1989-09-13 HEPATITIS C [facility]CREENING [facility] - Test 00:00:00 [code = HEPATITIS C Medical Center SCREENING] Future Scheduled 1989-09-13 HEPATITIS C [facility]CRE[facility]ING [facility] Test 00:00:00 [code = HEPATITIS C Medical Center SCREENING] Future Scheduled 1977-09-[address] [facility] - Test 00:00:00 0-64 YRS (1 of 2 - Medical C enter PPSV23) [code = PNEUMOCOCCAL VACCINE 0-64 YRS (1 of 2 - PPSV23)] Future Scheduled 1977-09-[address] [facility] - Test 00:00:00 0-64 YRS (1 of 2 - Medical C enter PPSV23) [code = PNEUMOCOCCAL VACCINE 0-64 YRS (1 of 2 - PPSV23)] Future Scheduled MAMMOGRAM ANNUAL [code [facility] Test = MAMMOGRAM ANNUAL] of Medic ine Future Scheduled MEDICARE AWV [code = [employer] Test MEDICARE AWV] of Medicine Future Scheduled TETANUS SHOT (ADULT) [facility] Test [code = TETANUS SHOT of Medi cine (ADULT)] Future Scheduled BMI FOLLOW UP PLAN [facility] Test [code = BMI FOLLOW UP of Med icine PLAN] Future Scheduled HIV SCREENING [code = [facility] Test HIV SCREENING] of Medicine Future Scheduled CERVICAL CANCER [facility] C ollege Test SCREENING 3 YEAR of Medicine FOLLOW UP [code = CERVICAL CANCER SCREENING 3 YEAR FOLLOW UP] Future Scheduled FLU VACCINE > 6 MONTHS [facility] Test [code = FLU VACCINE > of Med icine 6 MONTHS] Future Scheduled CBC W/AUTO DIFF WITH Ordered: [facility] Test PLATELETS [code = 06/12/2019 of Medicin e 03966-1] Future Scheduled CELIAC DISEASE PANEL Ordered: [facility] Test [code = 24443-0] 06/12/2019 of Medicine Future Scheduled VITAMIN B12 [code = Ordered: [facility] Test 2132-9] 06/12/2019 of Medicine Future Scheduled VITAMIN D 25 HYDROXY Ordered: [facility] Test [code = 1989-3] 06/12/2019 of Medicine Future Scheduled CALCIUM [code = Ordered: [facility]lege Test 55138-8] 06/12/2019 of Medicine Future Scheduled COMPREHENSIVE Ordered: [facility] Col [facility]ge Test METABOLIC PANEL [code 06/12/2019 of Med icine = 55297-7] Future Scheduled C-REACTIVE PROTEIN Ordered: [facility] Test [code = 1988-5] 06/12/2019 of Medicine Future Scheduled MAGNESIUM [code = Ordered: [facility] Test 36075-3] 06/12/2019 of Medicine Future Scheduled IRON, TIBC AND Ordered: [facility] [employer] Test FERRITIN PANEL [code = 06/12/2019 of Me dicine NOCPT] Future Scheduled CLOSTRIDIUM DIFFICILE Ordered: [facility] Test TOXIN/GDH WITH REFLEX 06/12/2019 of Med icine TO PCR [code = 98112-9] Future Scheduled STELARA(R)USTEKINUMAB Ordered: [facility] Test [code = NOCPT] 06/12/2019 of Medicine Future Scheduled MAMMOGRAM ANNUAL [code [facility] Test = MAMMOGRAM ANNUAL] of Medic ine Future Scheduled TETANUS SHOT (ADULT) [employer] Test [code = TETANUS SHOT of Medi cine (ADULT)] Future Scheduled BMI FOLLOW UP PLAN [employer] Test [code = BMI FOLLOW UP of Med icine PLAN] Future Scheduled HIV SCREENING [code = [employer] Test HIV SCREENING] of Medicine Future Scheduled CERVICAL CANCER [facility] C [facility]lege Test SCREENING 3 YEAR of Medicine FOLLOW UP [code = CERVICAL CANCER SCREENING 3 YEAR FOLLOW UP] Future Scheduled MEDICARE AWV (Initial) [employer] Test [code = MEDICARE AWV of Medi cine (Initial)] Future Scheduled CLOSTRIDIUM DIFFICILE Ordered: [employer] Test TOXIN/GDH WITH REFLEX 06/19/2019 of Med icine TO PCR [code = 35369-9] Future Scheduled CULTURE, STOOL [code = Ordered: [facility] [employer] Test 625-4] 06/19/2019 of Medicine Future Scheduled CALPROTECTIN, FECAL Ordered: [facility] [employer] Test [code = 01884-8] 06/19/2019 of Medicine Future Scheduled MAMMOGRAM ANNUAL [code [employer] Test = MAMMOGRAM ANNUAL] of Medic ine Future Scheduled TETANUS SHOT (ADULT) [employer] Test [code = TETANUS SHOT of Medi cine (ADULT)] Future Scheduled BMI FOLLOW UP PLAN [employer] Test [code = BMI FOLLOW UP of Med icine PLAN] Future Scheduled HIV SCREENING [code = [employer] Test HIV SCREENING] of Medicine Future Scheduled CERVICAL CANCER [facility] C [facility] Test SCREENING 3 YEAR of Medicine FOLLOW UP [code = CERVICAL CANCER SCREENING 3 YEAR FOLLOW UP] Future Scheduled MEDICARE AWV (Initial) [employer] Test [code = MEDICARE AWV of Medi cine (Initial)] Future Scheduled MAMMOGRAM ANNUAL [code [employer] Test = MAMMOGRAM ANNUAL] of Medic ine Future Scheduled TETANUS SHOT (ADULT) [employer] Test [code = TETANUS SHOT of Medi cine (ADULT)] Future Scheduled BMI FOLLOW UP PLAN [employer] Test [code = BMI FOLLOW UP of Med icine PLAN] Future Scheduled HIV SCREENING [code = [employer] Test HIV SCREENING] of Medicine Future Scheduled CERVICAL CANCER [facility] C [facility]lege Test SCREENING 3 YEAR of Medicine FOLLOW UP [code = CERVICAL CANCER SCREENING 3 YEAR FOLLOW UP] Future Scheduled MEDICARE AWV (Initial) [employer] Test [code = MEDICARE AWV of Medi cine (Initial)] Future Scheduled CO LO FLEX L1-BELOW L5 Ordered: [employer] Test PRE OTS [code = L0625] 07/11/2019 of Me dicine Future Scheduled MAMMOGRAM ANNUAL [code [employer] Test = MAMMOGRAM ANNUAL] of Medic ine Future Scheduled TETANUS SHOT (ADULT) [employer] Test [code = TETANUS SHOT of Medi cine (ADULT)] Future Scheduled BMI FOLLOW UP PLAN [employer] Test [code = BMI FOLLOW UP of Med icine PLAN] Future Scheduled HIV SCREENING [code = [employer] Test HIV SCREENING] of Medicine Future Scheduled CERVICAL CANCER [facility] C [facility]lege Test SCREENING 3 YEAR of Medicine FOLLOW UP [code = CERVICAL CANCER SCREENING 3 YEAR FOLLOW UP] Future Scheduled MEDICARE AWV (Initial) [employer] Test [code = MEDICARE AWV of Medi cine (Initial)] Future Scheduled ORT - XR KNEE BILAT 4V Ordered: [employer] Test (CHARGE ONLY) [code = 12/17/2019 of Med icine 96828] Future Scheduled MAMMOGRAM ANNUAL [code [employer] Test = MAMMOGRAM ANNUAL] of Medic ine Future Scheduled TETANUS SHOT (ADULT) [employer] Test [code = TETANUS SHOT of Medi cine (ADULT)] Future Scheduled HIV SCREENING [code = [employer] Test HIV SCREENING] of Medicine Future Scheduled CERVICAL CANCER [facility] C [facility]lege Test SCREENING 3 YEAR of Medicine FOLLOW UP [code = CERVICAL CANCER SCREENING 3 YEAR FOLLOW UP] Future Scheduled MEDICARE AWV (Initial) [employer] Test [code = MEDICARE AWV of Medi cine (Initial)] Future Scheduled FLU VACCINE > 6 MONTHS [employer] Test [code = FLU VACCINE > of Med icine 6 MONTHS] Future Scheduled BMI FOLLOW UP PLAN [employer] Test [code = BMI FOLLOW UP of Med icine PLAN] Future Scheduled ZOSTER VACCINE (1 of [employer] Test 2) [code = ZOSTER of Medicin e VACCINE (1 of 2)] Future Scheduled CT ABD/PELVIS 1 Occurrences [facility] Co llege Test ENTEROGRAPHY W [code = starting of Me dicine 04253-7] 06/12/2019 until 01/11/2020 Instructions [facility] Instructions [facility] Encounters Start End Encounter Admission Attending Care Care Encounter Source Date/Time Date/Time Type Type Clinicians Facility Department ID 2021-02-03 Outpatient NORMA MOCK Surgery [id number] [facility] 03:19:49 APRIL 2016-11-04 Inpatient C NARESH CASH RAD [id number] [facility] 09:30:00 [facility] 2021-07-02 2021-07-02 Outpatient MIRACLE MOCK [facility] Surgery [id number] SLE 10:43:00 14:08:00 APRIL 2021-07-01 2021-07-01 Outpatient MIRACLE [facility] [id number] SLE 10:58:51 23:59:00 2021-06-28 2021-06-28 Outpatient AMBREEN_FAR CAHOP [facility] [id number] [place] 12:09:00 12:09:00 HANA 0228 [facility] Outre h Program 2021-06-24 2021-06-24 Outpatient Hawkins_M [facility] [id number] [place] 10:57:00 10:57:00 0224 Medical Group 2021-06-24 2021-06-24 Merari [facility] [place] - [id number] M atagor 00:00:00 00:00:00 Anahy Long Medical Medical TECHNICAL SOLUTIONS DIRECTOR: [address] [facility] [address], [place] [address] , Ph. 2021-06-18 2021-06-18 Outpatient ARMANDO FIELDS [facility] [id number] [address] [place] [address] 10:20:57 11:15:16 FALGUNI Naqvi Medicmary reid 2021-06-08 2021-06-08 Outpatient Hawkins_M [facility] [id number] [place] 04:51:00 04:51:00 0215 Medical Group 2021-06-03 2021-06-03 Outpatient Hawkins_M [facility] [id number] [place] 08:52:00 08:52:00 0204 Medical Group 2021-05-25 2021-05-25 Office Do 1Demetri2.840.1 [id number] Methodcecilio 14:54:51 15:13:18 Visit Mauricio Gutierrez 64407.1.1 769 s t 3.430.2.7 Hospit a .3.123163 l .8 2021-05-25 2021-05-25 Travel 1.2.840.1 1.2.863.191 [id number] Methodi 00:00:00 00:00:[address] [facility] .3.243665 084.8 l .8 2021-05-13 2021-05-13 Outpatient Hawkins_M MMG [facility] [id number] [place] 01:55:00 01:55:00 0113 Medical Group 2021-05-13 2021-05-13 Outpatient Hawkins_M MMG [facility] [id number] [place] 01:55:00 01:55:00 0119 Medical Group 2021-05-10 2021-05-10 Surgery [facility], 1.2.840.1 [id number] Methodi 09:55:00 12:25:00 Mauricio Gutierrez 84042.1.1 608 s t 3.430.2.7 Hospit a .3.178114 l .8 2021-05-10 2021-05-10 Anesthesia Terri Forbes A. 1.2.840.1 10 [id number] Methodi 09:41:00 11:23:00 Event DrakeAnuja linovany [address]68.1.[address] 3.430.2.7 Hospit a .3.345024 l .8 2021-05-10 2021-05-10 [facility] 021 [id number] [place] 00:00:00 00:00:00 Encounter MAURICIO Grewal Meth deepti st 2021-05-06 2021-05-06 Pre-Admiss [facility], 1.2.840.1 [id number] Methodi 10:42:34 11:42:34 ion Mauricio Gutierrez 07261.1.1 520 s t Testing 3.430.2.7 Hospit a .3.931523 l .8 2021-05-06 2021-05-06 Outpatient Hawkins_M MMG [facility] [id number] [place] 02:54:00 02:54:00 0108 da Medical Group 2021-05-06 2021-05-06 Travel 1.2.840.1 1.2.439.129 8673 [id number] Methodi 00:00:00 00:00:[address] 3.430.2.7 0.2.7.3.698 Ho spita .3.980270 084.8 l .8 2021-05-04 2021-05-04 [facility] Elly Dodson [facility] [id number] 07:13:37 23:59:00 Encounter 1.5, [facility] 2021-05-04 2021-05-04 Outpatient MIRACLE DODSON [facility] [id number] SLEH 07:13:37 23:59:00 ELLY 2021-05-03 2021-05-03 [facility] [id number] 08:45:33 23:59:00 Encounter [facility] 2021-05-03 2021-05-03 Outpatient MIRACLE LOPEZ SLE SLEH [id number] SLEH 08:45:33 23:59:00 [facility] 2021-05-03 2021-05-03 Outside [place], [facility] [id number] 00:00:00 00:00:00 Orders [facility] 2021-04-30 2021-04-30 Outpatient Hawkins_M [facility] [id number] [place] 10:22:00 10:22:00 0105 Medical Group 2021-04-29 2021-04-29 Outpatient EL SLEH SLEH [id number] [facility]H 00:00:00 00:00:00 2021-04-28 2021-04-28 [facility] [id number] [place] 04:54:00 04:54:00 1229 da Medical Group 2021-04-28 2021-04-28 Merari [facility] [place] - [id number] M atagor 00:00:00 00:00:00 Anahy Long, Medical Medical TECHNICAL SOLUTIONS DIRECTOR: [address] [facility] [address], [place] [address] , Ph. 2021-04-22 2021-04-22 Outpatient [facility]k [facility] [id number] -2020 [place] 03:28:00 03:28:00 1223 ysabel [facility] 2021-04-22 2021-04-22 Merari [facility] [place] - [id number] M atagor 00:00:00 00:00:00 Anahy Long, Medical Medical TECHNICAL SOLUTIONS DIRECTOR: [address] [facility] [address], [place] [address] , Ph. 2021-04-16 2021-04-16 Outpatient Vivek [facility] [id number] -2020 [place] 12:39:00 12:39:00 1221 [facility] 2021-04-15 2021-04-15 Outpatient ARMANDO MOCK [facility] [id number] [facility] 09:44:17 10:29:41 APRIL reid of Medicin e 2021-04-13 2021-04-13 Orders Moose [facility] [id number] 00:00:00 00:00:00 Only Suzie Batista [facility] 2021-03-31 2021-03-31 Travel 1.2.840.1 1.2.677.495 8610 [id number] Methodi 00:00:00 00:00:[address] 3.430.2.7 0.2.7.3.698 Ho spita .3.911217 084.8 l .8 2021-03-30 2021-03-30 Prep for Jerry, 1.2.840.1 [id number] Methodi 00:00:00 00:00:00 Surgery Muriel P 25730.1.[address] 3.430.2.7 Hospit a .3.256543 l .8 2021-03-29 2021-03-29 Outpatient AMBREEN_MAN CAROBERTO CARLOS [facility] [id number] [place] 11:52:00 11:52:00 PATRICK 1129 da [facility] 2021-03-29 2021-03-29 Vj V[place] - [id number] M atagor 00:00:00 00:00:00 Jer Wang MD: [place] Epi scop 1700 [facility] Lacy [facility] [address] [facility] , Ph. [phone] 2021-03-23 Outside [facility] [id number] [facility] 00:00:00 00:00:00 Orders [facility] 2021-03-17 2021-03-17 Outpatient Nieves_Gustavo MMG [facility] [id number] [place] 11:17:00 11:17:00 1124 da Medical Group 2021-03-12 2021-03-12 Office ARMANDO Lopez 1.2.840.114 [id number] [facility] 09:30:00 12:19:22 Visit Suzie AMBULATOR 350.1.13.21 College Y 0.2.7.2.686 of [id number] [facility] marlene 355 e 2021-03-11 2021-03-11 Office Do, 1.2.840.1 [id number] Methodi 13:59:32 15:38:25 Visit Mauricio Gutierrez 25635.1.1 490 s t 3.430.2.7 Hospit a .3.441693 l .8 2021-03-11 2021-03-11 Travel 1.2.840.1 1.2.031.838 8115 [id number] Methodi 00:00:00 00:00:[address] 3.430.2.7 0.2.7.3.698 Ho spita .3.904062 084.8 l .8 2021-03-04 2021-03-04 Telephone Gilson, 1.2.840.1 [id number] [id number] Methodi 00:00:00 00:00:[address] 3.430.2.7 Hospit a .3.627319 l .8 2021-03-02 2021-03-02 [place] [id number] [place] 03:02:00 03:02:00 1102 da Medical Group 2021-03-02 2021-03-02 Outpatient Hawkins_M MMG MM [id number] [place] 03:02:00 03:02:00 1104 da Medical Group 2021-03-02 2021-03-02 Maxi [facility] [place] - [id number] M atagor 00:00:00 00:00:00 Satnam Dueñas MD: Medical Medica l [address] [place] [address] [address], [place] [address] , Ph. [phone] 2021-02-23 2021-02-23 Outpatient Hawkins_M MMG [facility] [id number] [place] 08:10:00 08:10:00 1026 da Medical Group 2021-02-19 2021-02-19 [place] [id number] [place] 12:41:00 12:41:00 1022 da Medical Group 2021-02-19 2021-02-19 Merari [facility] [place] - [id number] M atagor 00:00:00 00:00:00 Anahy Long, Medical Medical TECHNICAL SOLUTIONS DIRECTOR: [address] [place] [address] Family [address], [place] [address] , Ph. 2021-02-02 2021-02-02 Telephone Adryan, 1.2.840.1 [id number] Methodi 00:00:00 00:00:[address] 3.430.2.7 Hospit a .3.289514 l .8 2021-01-25 2021-01-25 [place] [id number] [place] 03:14:00 03:14:00 0927 Medical Group 2021-01-25 2021-01-25 Outpatient Hawkins_M MMG [facility] [id number] [place] 03:14:00 03:14:00 0928 da Medical Group 2021-01-25 2021-01-25 Merari [facility] [place] - [id number] M at[place]or 00:00:00 00:00:00 Anahy grady [facility] Medical TECHNICAL SOLUTIONS DIRECTOR: [address] [facility] [address], [place] [address] , Ph. 2021-01-19 2021-01-19 Office JerichoSONA alvarado 1.2.840.114 [id number] [facility] 13:31:56 16:19:42 Visit Oyesikasdi AMBULATOR 350.1.13.21 College Y 0.2.7.2.686 of [id number] Medi marlene 355 e 2021-01-18 2021-01-18 Outpatient Hawkins_M G [facility] [id number] [place] 10:53:00 10:53:00 0920 Medical Group 2020-12-28 2020-12-28 Outpatient [facility]BREEN[facility]FAR [facility] [id number] [place] 11:52:00 11:52:00 HANA 0830 [facility] Program 2020-12-28 2020-12-28 [facility] [place] - [id number] M at[place]or 00:00:00 00:00:00 Jer Wang MD: [place] Epi scop 1700 [facility] [address] [facility] , Ph. [phone] 2020-12-18 Outpatient Hawkins_M MMG [facility] [id number] [place] 02:10:00 02:10:00 0820 Medical Group 2020-12-18 2020-12-18 Outpatient Hawkins_M MMG [facility] [id number] [place] 02:10:00 02:10:00 0828 Medical Group 2020-12-18 2020-12-18 Merari MMG [place] - [id number] M [place] 00:00:00 00:00:00 Anahy Long Medical Medical TECHNICAL SOLUTIONS DIRECTOR: [address] [facility] [address], [place] [address] , Ph. 2020-12-15 2020-12-15 Outpatient Hawkins_M MMG MMG [id number] -2020 [place] 09:22:00 09:22:00 0819 Medical Group 2020-12-08 2020-12-08 Outpatient Hawkins_M MMG MMG [id number] -2020 [place] 03:08:00 03:08:00 0810 Medical Group 2020-12-08 2020-12-08 Merari GEEG [place] - [id number] M atagor 00:00:00 00:00:00 Anahy Long Medical Medical TECHNICAL SOLUTIONS DIRECTOR: [address] [facility] [address], [place] [address] , Ph. 2020-12-05 2020-12-05 Outpatient Hawkins_M MMG MMG [id number] -2020 [place] 12:26:00 12:26:00 0809 da Medical Group 2020-12-02 2020-12-02 Outpatient Hawkins_M MMG MMG [id number] -2020 [place] 06:31:00 06:31:00 0806 da Medical Group 2020-12-02 2020-12-02 Outpatient Hawkins_M MMG MMG [id number] -2020 [place] 06:31:00 06:31:00 0807 da Medical Group 2020-11-30 2020-11-30 Outpatient Hawkins_M MMG MMG [id number] -2020 [place] 12:35:00 12:35:00 0802 Medical Group 2020-11-30 2020-11-30 Merari MMG [place] - [id number] M at[place]or 00:00:00 00:00:00 Anahy Long Medical Medical TECHNICAL SOLUTIONS DIRECTOR: [address] [address], [place] [address] , Ph. 2020-11-20 2020-11-20 [facility] [id number] 08:15:16 23:59:00 Encounter 1.5, [facility] Jase Mr [facility] 2020-11-20 2020-11-20 [facility] [id number] 08:00:00 08:14:00 Encounter 1.5, [facility] Jase Mr [facility] 2020-11-20 2020-11-20 Outpatient SLE SLEH [id number] [facility] 00:00:00 00:00:00 2020-11-20 2020-11-[address] [facility] SLEH [id number] [facility] 00:00:00 00:00:00 [facility] 2020-11-17 2020-11-17 Outpatient Hawkins_M MMG [facility] [id number] -2020 [place] 02:14:00 02:14:00 0720 [facility] 2020-11-17 2020-11-17 Merari MM [place] - [id number] M at[place]or 00:00:00 00:00:00 Anahy Long, Medical Medical TECHNICAL SOLUTIONS DIRECTOR: [address] [address], [place] [address] , Ph. 2020-11-10 2020-11-10 [facility] [id number] 00:00:00 00:00:00 Orders [facility] 2020-10-26 2020-10-26 Outpatient Hawkins_M MMG [facility] [id number] -2020 [place] 02:35:00 02:35:00 0628 [facility] 2020-10-26 2020-10-26 Merari GEE[place] - [id number] M atagor 00:00:00 00:00:00 Anahy Long Medical Medical TECHNICAL SOLUTIONS DIRECTOR: [address] [address], [place] [address] , Ph. 2020-10-12 2020-10-12 Outpatient Hawkins_M MMG [facility] [id number] -2020 [place] 03:56:00 03:56:00 0614 da Medical Group 2020-10-12 2020-10-12 [place] [id number] [place] 03:56:00 03:56:00 0622 da Medical Group 2020-10-12 2020-10-12 Merari [facility] [place] - [id number] M atagor 00:00:00 00:00:00 Anahy Nice [facility] Medical TECHNICAL SOLUTIONS DIRECTOR: [address] [facility] [address], [place] [address] , Ph. 2020-10-05 2020-10-05 Outpatient AMBREEN_FAR [facility] 839 [place] 12:48:00 12:48:00 HANA 0607 [facility] 2020-10-05 2020-10-05 [facility] [place] - [id number] atagor 00:00:00 00:00:00 Jer Wang MD: [place] Epi scop 1700 [facility] [address] [facility] , Ph. [phone] 2020-09-22 Outpatient Hawkins_M MMG [facility] [id number] [place] 01:04:00 01:04:00 0527 Medical Group 2020-08-18 2020-08-18 [place] [id number] [place] 09:58:00 09:58:00 0423 da Medical Group 2020-08-12 2020-08-12 [place] [id number] [place] 04:29:00 04:29:00 0414 da Medical Group 2020-08-12 2020-08-12 [place] [id number] [place] 04:29:00 04:29:00 0415 Medical Group 2020-08-12 2020-08-12 [place] [id number] [place] 04:29:00 04:29:00 0418 da Medical Group 2020-08-12 2020-08-12 Outpatient Hawkins_M MMG MMG [id number] -2020 [place] 04:29:00 04:29:00 0420 da Medical Group 2020-08-12 2020-08-12 Merari MM [place] - [id number] M atagor 00:00:00 00:00:00 Anahy Nice [facility] Medical TECHNICAL SOLUTIONS DIRECTOR: [address] [facility] Family [address], [place] [address] , Ph. 2020-08-03 2020-08-03 [facility] [id number] 675 Memoria 10:11:00 14:30:00 Surgery r [address] 2020-08-03 2020-08-03 [facility]patient [facility] [id number] Memoria 05:11:00 09:30:00 ELLY l [facility] 2020-07-31 2020-07-31 Outpatient Yan_W MMG [facility] [id number] [place] 11:16:00 11:16:00 0402 Medical Group 2020-07-31 2020-07-31 Outpatient Yan_W MMG [facility] [id number] [place] 11:16:00 11:16:00 0403 Medical Group 2020-07-31 2020-07-31 Parish Adams MMG [place] - [id number] [place] 00:00:00 00:00:00 MD: Candi Nice [facility] [address], [facility], Otolaryngol LACHELLE Dotson [address] , Ph. 2020-07-16 2020-07-16 Outpatient Yan_W MMG [facility] [id number] [place] 05:29:00 05:29:00 0401 Medical Group 2020-07-06 2020-07-06 Outpatient AMBREEN_FAR [facility] [id number] [place] 10:58:00 10:58:00 ROMJocelyn 0308 [facility] Program 2020-07-06 2020-07-06 Vj V[place] - [id number] M atagor 00:00:00 00:00:00 Jer Wang MD: [place] Epi scop 1700 [facility] [address] [facility] , Ph. [phone] 2020-06-23 [facility] [id number] [place] 03:46:00 03:46:00 0223 Medical Group 2020-06-23 2020-06-23 Outpatient [facility]W [facility] [id number] [place] 03:46:00 03:46:00 0225 Medical Group 2020-06-23 2020-06-23 Merari [facility] [place] - [id number] M atagor 00:00:00 00:00:00 Anahy Nice [facility] TECHNICAL SOLUTIONS DIRECTOR: [address] [facility] [address] [place] [address] , Ph. 2020-06-03 2020-06-03 Outpatient [facility]W [facility] [id number] [place] 12:45:00 12:45:00 0203 Medical Group 2020-05-27 2020-05-27 Outpatient [facility] [id number] [place] 02:53:00 02:53:00 0127 Medical Group 2020-05-27 2020-05-27 Outpatient [facility]W [facility] [id number] [place] 02:53:00 02:53:00 0128 Medical Group 2020-05-27 2020-05-27 Parish Adams MM [place] - [id number] [place] 00:00:00 00:00:00 MD: Candi Nice [address] Otolaryngol [facility] [address] , Ph. 2020-05-11 2020-05-12 [facility] [id number] 675 Memoria 15:36:00 01:40:00 Surgery r Markus l [facility] 2020-05-11 2020-05-11 Outpatient [facility] [id number] Memoria 09:36:00 19:40:00 ELLY jessenia [facility] 2020-05-10 2020-05-10 Outpatient Hawkins_M MMG MMG [id number] -2020 [place] 07:52:00 07:52:00 0110 da Medical Group 2020-05-10 2020-05-10 Outpatient Hawkins_M MMG MMG [id number] -2020 [place] 07:52:00 07:52:00 0115 da Medical Group 2020-05-10 2020-05-10 Outpatient Hawkins_M MMG MMG [id number] [place] 07:52:00 07:52:00 0120 da Medical Group 2020-05-10 2020-05-10 Outpatient Hawkins_M MMG MMG [id number] -2020 [place] 07:52:00 07:52:00 0123 da Medical Group 2020-05-04 2020-05-04 Outpatient Hawkins_M MMG MMG [id number] -2020 [place] 11:55:00 11:55:00 0104 da Medical Group 2020-05-04 2020-05-04 Outpatient Hawkins_M MMG MMG [id number] [place] 11:55:00 11:55:00 0107 da Medical Group 2020-05-04 2020-05-04 Merari MMG [place] - [id number] M atagor 00:00:00 00:00:00 Rudi Jj Medical TECHNICAL SOLUTIONS DIRECTOR: [address] [facility] [address], [place] [address] , Ph. 2020-04-30 2020-04-30 Outpatient Hawkins_M MMG MMG [id number] [place] 10:21:00 10:21:00 1231 da Medical Group 2020-04-28 2020-04-28 Outpatient G_Pappas MMG MM [id number] [place] 11:28:00 11:28:00 1229 da Medical Group 2020-04-26 2020-04-26 Outpatient AMBREEN_FAR MEHOP CAHOP [id number] [place] 03:43:00 03:43:00 HANA 0304 [facility] 2020-04-26 2020-04-26 Outpatient AMBREEN_FAR MEHOP [facility] [id number] [place] 03:43:00 03:43:00 HANA 1227 [facility] 2020-04-10 2020-04-10 Outpatient G_Pappas MMG MM [id number] [place] 05:24:00 05:24:00 1211 da Medical Group 2020-04-08 2020-04-08 Outpatient AMBREEN_FAR CAHOP [facility] [id number] [place] 04:50:00 04:50:00 HANA 1209 [facility] 2020-04-08 2020-04-08 [facility] [place] - [id number] M atagor 00:00:00 00:00:00 Jer Wang MD: [place] Epi scop 1700 [facility] [address] [facility] , Ph. [phone] 2020-04-07 Outpatient AMBREEN_FAR CAHOP [facility] [id number] [place] 12:19:00 12:19:00 HANA 1208 [facility] 2020-04-02 2020-04-02 Outpatient G_Pappas MMG MM [id number] [place] 03:25:00 03:25:00 1203 da Medical Group 2020-04-02 2020-04-02 Outpatient G_Pappas MMG MMG [id number] [place] 03:25:00 03:25:00 1207 da Medical Group 2020-04-02 2020-04-02 Jake [facility] [place] - [id number] M atagor 00:00:00 00:00:00 Discovery ysabel Franco MD: 600 [facility] [address], [place] [address] , Ph. [phone] 2020-03-28 2020-03-28 Outpatient Hawkins_M MMG MMG [id number] [place] 01:09:00 01:09:00 1128 da Medical Group 2020-03-18 2020-03-18 Outpatient AMBREEN_FAR [facility] [id number] [place] 10:35:00 10:35:00 HANA 1118 da [facility] Out[facility] Program 2020-03-18 2020-03-18 Outpatient Hawkins_M MMG MMG [id number] [place] 03:31:00 03:31:00 1118 da Medical Group 2020-03-18 2020-03-18 Outpatient Hawkins_M MMG MMG [id number] [place] 03:31:00 03:31:00 1119 da Medical Group 2020-03-18 2020-03-18 Outpatient Hawkins_M MMG MMG [id number] [place] 03:31:00 03:31:00 1123 da Medical Group 2020-03-18 2020-03-18 Merari MMG [place] - [id number] M atagor 00:00:00 00:00:00 Rudi Jj Medical TECHNICAL SOLUTIONS DIRECTOR: [address] [facility] [address], [place] [address] , Ph. 2020-03-16 2020-03-16 Outpatient Hawkins_M MMG MMG [id number] [place] 12:25:00 12:25:00 1116 da Medical Group 2020-03-09 2020-03-09 Outpatient G_Pappas MMG MMG [id number] [place] 04:12:00 04:12:00 1109 da Medical Group 2020-03-05 2020-03-05 Outpatient Yan_W MMG MMG [id number] [place] 10:15:00 10:15:00 1105 da Medical Group 2020-02-11 2020-02-11 Outpatient Yan_W MMG MMG [id number] [place] 11:59:00 11:59:00 1013 Medical Group 2020-02-07 2020-02-07 Outpatient AMBREEN_MAN MEROBERTO CARLOS MEHOP [id number] [place] 04:36:00 04:36:00 PATRICK 1102 [facility] h Program 2020-01-24 2020-01-24 Outpatient cMcDonald MMG [facility] [id number] [place] 12:07:00 12:07:00 0925 Medical Group 2020-01-24 2020-01-24 [place] [id number] [place] 12:07:00 12:07:00 0926 Medical Group 2020-01-24 2020-01-24 Merari MM [place] - [id number] M atagor 00:00:00 00:00:00 Anahy Long, [facility] Medical TECHNICAL SOLUTIONS DIRECTOR: [address] [place] [address] [address], [place] [address] , Ph. 2020-01-17 2020-01-17 Outpatient cMcDonald MMG [facility] [id number] [place] 02:28:00 02:28:00 0918 Medical Group 2020-01-17 2020-01-17 [place] [id number] [place] 02:28:00 02:28:00 0920 Medical [facility] 2020-01-17 2020-01-17 Jake MM [place] - [id number] M atagor 00:00:00 00:00:00 Discovery ysabel Franco MD: [address] [place] [address] [address], [place] [address] , Ph. [phone] 2020-01-08 2020-01-08 Outpatient EL SLEH SLEH [id number] [facility] 00:00:00 00:00:00 2019-12-17 2019-12-17 Office ARMANDO Sandoval 1.2.840.114 [id number] 13:39:48 15:29:29 Visit Mohamad AMBULATOR 350.1.13.21 Y 0.2.7.2.686 [id number] 600 2019-12-17 2019-12-17 Office ARMANDO Sandoval [id number] [facility] 13:39:48 15:29:29 Visit Mohamad AMBULATOR 350.1.13.21 College Y 0.2.7.2.686 [id number] [facility] 600 e 2019-12-11 2019-12-11 Telephone Milli ADRIANE 1.2.840.114 [id number] 00:00:00 00:00:00 [facility] 350.1.13.10 Surgical 4.2.7.2.686 Specialti [id number] es 198 [place] 2019-12-09 2019-12-09 Outpatient AMBREEN_FAR [facility] [id number] [place] 03:35:00 03:35:00 HANA 0810 da [facility] 2019-12-09 2019-12-09 [facility] - [id number] M [place] 00:00:00 00:00:00 Jer Wang MD: [facility] [address] [facility] [place] [address] [facility] noel , Ph. [phone] 2019-12-08 [facility] [id number] [place] 10:12:00 10:12:00 0809 [facility] 2019-12-03 2019-12-03 [place] [id number] [place] 02:38:00 02:38:00 0804 [facility] 2019-12-03 2019-12-03 [place] [id number] [place] 02:38:00 02:38:00 0805 [facility] 2019-12-03 2019-12-03 [place] [id number] [place] 02:38:00 02:38:00 0806 Medical Group 2019-12-03 2019-12-03 Shanelle [facility] [place] - [id number] M at[place] 00:00:00 00:00:00 Discovery ysabel Morley MD: [address] [place] [address] Group [facility] - [address], [place] [address] , Ph. 2019-12-02 2019-12-02 Outpatient cMcDonald MMG [facility] [id number] [place] 10:16:00 10:16:00 0803 [facility] 2019-11-26 2019-11-26 [place] [id number] [place] 12:11:00 12:11:00 0729 [facility] 2019-11-14 2019-11-14 Outpatient Hawkins_M MMG [facility] [id number] [place] 06:53:00 06:53:00 0716 [facility] 2019-11-12 2019-11-12 Outpatient Hawkins_M MMG [facility] [id number] [place] 12:34:00 12:34:00 0714 [facility] 2019-11-12 2019-11-12 Outpatient Hawkins_M MMG [facility] [id number] [place] 12:34:00 12:34:00 0715 [facility] 2019-11-07 2019-11-07 [facility] [id number] 09:07:33 09:22:33 Visit [facility] 350.1.13.10 Surgical 4.2.7.2.686 Special [phone] [address] 2019-11-07 2019-11-07 [facility] [id number] Univers 09:00:00 09:00:00 SHANELLE abebe [facility] 2019-11-07 2019-11-07 Outpatient Hawkins_M MMG [facility] [id number] [place] 02:16:00 02:16:00 0709 [facility] 2019-11-07 2019-11-07 Outpatient Hawkins_M MMG [facility] [id number] [place] 02:16:00 02:16:00 0711 [facility] 2019-11-07 2019-11-07 Outpatient Hawkins_M MMG [facility] [id number] [place] 02:16:00 02:16:00 0713 [facility] 2019-11-07 2019-11-07 Merari [facility] [place] - [id number] M [place] 00:00:00 00:00:00 Anahy Long [facility] TECHNICAL SOLUTIONS DIRECTOR: [address] [place] [address] [address], [place] [address] , Ph. 2019-11-06 2019-11-06 Outpatient Hawkins_M MMG MMG [id number] [place] 02:20:00 02:20:00 0708 Medical Group 2019-10-24 2019-10-24 Outpatient Hawkins_M MMG MMG [id number] [place] 11:34:00 11:34:00 0702 Medical Group 2019-10-15 2019-10-15 Outpatient Hawkins_M MMG MMG [id number] [place] 04:41:00 04:41:00 0616 Medical Group 2019-10-15 2019-10-15 Julia MM [place] - [id number] M [place] 00:00:00 00:00:00 Discovery ysabel Schulz TECHNICAL SOLUTIONS DIRECTOR: [address] [place] [address] , Ph. 2019-09-19 2019-09-19 Outpatient SLEH SLEH [id number] [facility]H 00:00:00 00:00:00 [id number] 2019-09-13 2019-09-13 Outpatient Hawkins_M MMG MMG [id number] [place] 02:27:00 02:27:00 0608 Medical Group 2019-09-13 2019-09-13 Outpatient Hawkins_M MMG MMG [id number] [place] 02:27:00 02:27:00 0615 Medical Group 2019-09-12 2019-09-12 Outpatient EL SLEH SLEH [id number] [facility] 00:00:00 00:00:00 2019-09-12 2019-09-12 Outpatient SLEH SLEH [id number] SLEH 00:00:00 00:00:00 [id number] 2019-09-10 2019-09-10 Outpatient AMBREEN_FAR [facility] 839 [place] 10:28:00 10:28:00 HANA 0512 da [facility] Outre [facility] 2019-09-09 2019-09-09 Outpatient AMBREEN_FAR [facility] [id number] [place] 11:55:00 11:55:00 HANA [facility]11 [facility] 2019-09-09 2019-09-09 Vj [facility] [place] - [id number] M [place] 00:00:00 00:00:00 Jer Wang MD: [place] Epi scop 1700 HOP - [facility] al [facility] [address] [address], [facility] [address] [facility] , Ph. [phone] 2019-09-08 Outpatient AMBREEN_FAR [facility] [id number] [place] 12:52:00 12:52:00 HANA 0510 [facility] 2019-08-23 2019-08-23 [facility] [id number] [place] 11:16:00 11:16:00 0424 Medical Group 2019-08-23 2019-08-23 Merari [facility] [place] - [id number] M [place] 00:00:00 00:00:00 Anahy Long, Medical Medical TECHNICAL SOLUTIONS DIRECTOR: 600 [facility] [address], [place] [address] , Ph. 2019-07-28 2019-07-28 [facility] [id number] [place] 06:03:00 06:03:00 0329 da Medical Group 2019-07-26 2019-07-26 Outpatient Hawkins_M MMG [facility] [id number] [place] 09:49:00 09:49:00 0327 da Medical Group 2019-07-26 2019-07-26 Merari [facility] [place] - [id number] M [place] 00:00:00 00:00:00 Anahy Long, Medical Medical TECHNICAL SOLUTIONS DIRECTOR: 600 [facility] [address], [place] [address] , Ph. 2019-07-15 2019-07-15 Outpatient A_[place]rd [place] [id number] [place] 06:35:00 06:35:00 0316 Medical Group 2019-07-12 2019-07-12 Outpatient A_Byrd [facility] [id number] [place] 04:55:00 04:55:00 0313 da Medical Group 2019-07-12 2019-07-12 Outpatient AMBREEN_MAN VILLA 839 [place] 01:29:00 01:29:00 PATRICK 0320 da [facility] 2019-07-12 2019-07-12 Merari [facility] [place] - [id number] M [place] 00:00:00 00:00:00 Anahy Long, Medical Medical TECHNICAL SOLUTIONS DIRECTOR: 600 [facility] [address], [place] [address] , Ph. 2019-07-11 2019-07-11 Office [place], [place] 1.2.840.114 [id number] 11:02:17 12:07:46 Visit Luís Keating AMBULATOR 350.1.13.21 Y 0.2.7.2.686 [id number] 2019-07-11 2019-07-11 Office [place], [place] 1.2.840.114 [id number] [facility] 11:02:17 12:07:46 Visit Luís MDemetri AMBULATOR 350.1.13.21 College Y 0.2.7.2.686 of [id number] [facility] 815 e 2019-06-26 2019-06-26 Outpatient A_Byrd [facility] [id number] [place] 11:17:00 11:17:00 0226 Medical Group 2019-06-19 2019-06-19 [facility] 1.2.840.114 [id number] 09:23:37 13:56:08 Visit Jase 350.1.13.21 0.2.7.2.686 [id number] 2019-06-19 2019-06-19 Office [facility] 1.2.840.114 [id number] [facility] 09:23:37 13:56:08 Visit Jase 350.1.13.21 Co llege 0.2.7.2.686 of [id number] [facility] 510 e 2019-06-19 2019-06-19 Office Nish, BCM 1.2.840.114 [id number] [facility] 10:50:49 11:20:49 Visit April AMBULATOR 350.1.13.21 Y 0.2.7.2.686 [id number] 2019-06-19 2019-06-19 Office Nish, BCM 1.2.840.[address] [place] [address] 10:50:49 11:20:49 Visit April AMBULATOR 350.1.13.21 College Y 0.2.7.2.686 of [id number] [facility] 325 e 2019-06-12 2019-06-12 Office Nish, BCM 1.2.840.114 [id number] [facility] 08:17:31 08:47:31 Visit April AMBULATOR 350.1.13.21 Y 0.2.7.2.686 [id number] 2019-06-12 2019-06-12 Office Nish, BCM 1.2.840.[address] [place] [address] 08:17:31 08:47:31 Visit April AMBULATOR 350.1.13.21 College Y 0.2.7.2.686 of [id number] [facility] 325 e 2019-06-10 2019-06-10 [facility] 839 [place] 12:00:00 12:00:00 HANA 0210 [facility] 2019-06-10 2019-06-10 [facility] [place] - [id number] M [place] 00:00:00 00:00:00 Jer Wang MD: [place] Epi scop 1700 HOP - [facility] [address], [address], [facility] [address] , Ph. [phone] 2019-06-05 Outpatient G_Pappas MMG MMG [id number] [place] 11:10:00 11:10:00 0205 da Medical Group 2019-05-08 2019-05-08 Outpatient G_Pappas MMG MMG [id number] [place] 11:02:00 11:02:00 0108 Medical Group 2019-05-08 2019-05-08 Mychal Espinosa [facility] [place] - [id number] M [place] 00:00:00 00:00:00 MD Suhas: Discovery grady [address] [place] [address] 201[facility] [address] , Ph. 2019-04-22 2019-04-22 Outpatient G_Pappas [facility] [id number] [place] 11:35:00 11:35:00 0107 Medical Group 2019-03-18 2019-03-18 Vj ALLEN [place] - [id number] M [place] 00:00:00 00:00:00 Jer Wang MD: [place] Epi scop 1700 [facility], [address], [facility] [address] , Ph. [phone] 2019-01-29 Jake GEE [place] - [id number] [place] 00:00:00 00:00:00 Discovery ysabel Franco MD: [address] [place] [address] [address], [place] [address] , Ph. [phone] 2019-01-25 2019-01-25 Jake JAY [place] - [id number] M [place] 00:00:00 00:00:00 Discovery ysabel Franco MD: [address] [place] [address] [address] [address] , Ph. [phone] 2019-01-07 2019-01-07 Jake JAY [place] - [id number] M [place] 00:00:00 00:00:00 Discovery ysabel Franco MD: [address] [place] [address] [address], [place] [address] , Ph. [phone] 2018-12-27 2018-12-27 Jake JAY [place] - [id number] M [place] 00:00:00 00:00:00 Discovery ysabel Franco MD: [address] [place], [place] [address]rda - [address], [place] [address] , Ph. [phone] 2018-12-18 2018-12-18 Office Otto Daniels 1.2.840.114 [id number] 09:55:23 16:38:01 Visit K AMBULATOR 350.1.13.21 Y 0.2.7.2.686 [id number] 2018-12-18 2018-12-18 Office Otto Daniels 1.2.840.114 [id number] [facility] 09:55:23 16:38:01 Visit K AMBULATOR 350.1.13.21 College Y 0.2.7.2.686 of [id number] [facility] 325 e 2018-12-17 2018-12-17 Mychal JAY [place] - [id number] [place] 00:00:00 00:00:00 MD Suhas: Discovery starr [facility], [place] - [address], [facility] [place] [address] , Ph. 2018-12-07 2018-12-07 Mychal JAY [place] - [id number] [place] 00:00:00 00:00:00 MD Suahs: Discovery grady [address] [place] [address], [place] - [address], [facility] [place] [address] , Ph. 2018-10-17 2018-10-17 Mychal JAY [place] - [id number] M [place] 00:00:00 00:00:00 MD Suhas: Discovery grady [address] [place], [place] [address]rda - [address], [facility] [place] [address] , Ph. 2018-09-17 2018-09-17 Julia JAY [place] - [id number] M [place] 00:00:00 00:00:00 Discovery ysabel Shculz TECHNICAL SOLUTIONS DIRECTOR: [address] [place] [address], [place] - [address], [facility] [place] [address] , Ph. 2018-08-29 2018-08-29 Mychal JAY [place] - [id number] M [place] 00:00:00 00:00:00 MD Suhas: [address], [place] - [address], [facility] [place] [address] , Ph. 2018-08-15 2018-08-15 Mychal JAY [place] - [id number] [place] 00:00:00 00:00:00 MD Suhas: [address], [place] - [address], [facility], [place] [address] , Ph. 2017-02-18 2017-02-19 [facility] [id number] [facility] 20:36:00 00:04:00 r [place] [address] [facility] 2016-10-10 2016-10-12 Inpatient [facility] [id number] [facility] 05:55:00 15:24:00 r [place] 31 l [facility] 2016-07-15 2016-07-19 Inpatient 1 HARSHIL ALLEN [facility] [id number] [facility] 18:47:00 10:30:00 [facility] Hospit [facility] l ([facility]) 2016-02-10 2016-02-10 Emergency [facility] [id number] [facility] 18:15:00 21:40:00 r Markus 30 l [facility] 2014-08-13 2014-08-13 [facility] [id number] [facility] 11:48:00 17:01:00 Emergency r [place] 29 l [facility] 2014-03-09 2014-03-09 EC [facility] [id number] [facility] 11:36:00 18:21:00 Emergency r Markus 28 l [facility] 2014-01-14 2014-01-14 [facility] [id number] 675 [facility] 12:52:00 23:11:00 Emergency r Markus 27 l [facility] 2014-01-14 2014-01-14 EC nullFlavo [facility] [id number] 675 Memoria 02:58:00 07:26:00 Emergency r [place] 26 l [facility] 2013-11-22 2013-11-22 EC [facility] [id number] [facility]oria 15:32:00 16:37:00 Emergency r Mark[place] 25 l [facility] 2013-11-19 2013-11-19 Emergency E O[facility]I, [facility] [id number] 22 [place] 10:08:00 12:55:00 [facility] Results Test Description Test Time Test Comments Results Result Comments Source CBC W Auto Differential panel - Blood 2021-05-24 01:10:00 Test Item Value Reference Range Interpretation Comme nts white blood count (test code = white blood count) 8.6 K/uL 4.0- 11.5 red blood count (test code = red blood count) 4.16 M/uL 3.80-5.2 0 hemoglobin (test code = hemoglobin) 12.5 g/dL 10.5-15.7 hematocrit (test code = hematocrit) 40.0 % 34.0-50.0 MCV [Entitic volume] (test code = 56323-7) 96.2 fL 86.0-100.0 mean corpuscular hemoglobin (test code = mean corpuscular 30.0 pg 26.2-33.4 hemoglobin) mean corpuscular HGB conc (test code = mean corpuscular HGB 31.3 g/dL 30.0-34.0 conc) red cell distribution width (test code = red cell 12.4 % 12.0 -15.5 distribution width) platelet count (test code = platelet count) 246 K/uL 165-450 mean platelet volume (test code = mean platelet volume) 8.7 fL 9.4-12.6 L Segmented neutrophils/100 leukocytes in Blood (test code = 50.6 % 44.4-80.1 64185-1) Immature granulocytes [#/volume] in Blood (test code = 0.03 K/uL 0.00-0.03 17173-0) lymphocyte% (test code = lymphocyte%) 33.8 % 10.0-50.0 mono % (test code = mono %) 5.8 % 3.6-12.0 eos % (test code = eos %) 8.9 % 0.0-5.4 H Basophils/100 leukocytes in Unspecified specimen (test code 0.6 % 0.1-1.2 = 45102-5) Band form neutrophils [#/volume] in Blood (test code = 4.36 K/uL 1.56-6.13 92701-3) Lymphocytes [#/volume] in Unspecified specimen by Automated 2.91 K/uL 1.18-3.74 count (test code = 25886-8) mono # (test code = mono #) 0.50 K/uL 0.24-0.86 eos # (test code = eos #) 0.77 K/uL 0.04-0.36 H basophil # (test code = basophil #) 0.05 K/uL 0.01-0.08 NRBC% (test code = NRBC%) 0 /100 WBC 0-0.2 NRBC# (test code = NRBC#) 0 [facility]uL [facility] - Serum or Plasma 2021-05-24 01:10:00 Test Item Value Reference Range Interpretation Comments Glucose [Mass/volume] in Serum or 80 mg/dL 74-106 Plasma (test code = 2345-7) Urea nitrogen [Mass/volume] in 11 mg/dL 6-20 Serum or Plasma (test code = 3094-0) osmolality calculated,serum (test 280 mOsm/kg 280-300 code = osmolality calculated,serum) creatinine (test code = 0.55 mg/dL 0.50-0.90 creatinine) glomerular filtration rate (test >60.00 code = glomerular filtration rate) Urea nitrogen/Creatinine [Mass 20.0 12.0-20.0 Ratio] in Serum or Plasma (test code = 3097-3) sodium level (test code = sodium 141 mmol/L 135-145 level) potassium level (test code = 4.4 mmol/L 3.5-5.2 potassium level) chloride level (test code = 103 mmol/L 98-108 chloride level) CO2 (test code = CO2) 29 mmol/L 21-32 anion gap (test code = anion gap) 13.4 mEq/L 12.0-20.0 calcium level (test code = 9.0 mg/dL 8.6-10.0 calcium level) total protein (test code = total 6.3 g/dL 6.6-8.7 L protein) albumin (test code = albumin) 3.5 g/dL 3.5-5.2 globulin (test code = globulin) 2.8 g/dL 1.5-4.5 A/G ratio (test code = A/G ratio) 1.3 >1.0 bilirubin,total (test code = 0.3 mg/dL 0.0-1.2 bilirubin,total) AST/SGOT (test code = AST/SGOT) 21 U/L 15-32 Alanine aminotransferase 33 U/L 0-33 [Enzymatic activity/volume] in Serum or Plasma (test code = 1742-6) Alkaline phosphatase [Enzymatic 89 U/L 35-105 activity/volume] in Serum or Plasma (test code = 6768-6) [facility] W Auto Differential panel - [id number] 01:10:00 Test Item Value Reference Range Interpretation Comments white blood count (test code = 8.6 K/uL 4.0-11.5 white blood count) red blood count (test code = red 4.16 M/uL 3.80-5.20 blood count) hemoglobin (test code = 12.5 g/dL 10.5-15.7 hemoglobin) hematocrit (test code = 40.0 % 34.0-50.0 hematocrit) MCV [Entitic volume] (test code = 96.2 fL 86.0-100.0 06930-8) mean corpuscular hemoglobin (test 30.0 pg 26.2-33.4 code = mean corpuscular hemoglobin) mean corpuscular HGB conc (test 31.3 g/dL 30.0-34.0 code = mean corpuscular HGB conc) red cell distribution width (test 12.4 % 12.0-15.5 code = red cell distribution width) platelet count (test code = 246 K/uL 165-450 platelet count) mean platelet volume (test code = 8.7 fL 9.4-12.6 L mean platelet volume) Segmented neutrophils/100 50.6 % 44.4-80.1 leukocytes in Blood (test code = 11099-5) Immature granulocytes [#/volume] 0.03 K/uL 0.00-0.03 in Blood (test code = 45844-1) lymphocyte% (test code = 33.8 % 10.0-50.0 lymphocyte%) mono % (test code = mono %) 5.8 % 3.6-12.0 eos % (test code = eos %) 8.9 % 0.0-5.4 H Basophils/100 leukocytes in 0.6 % 0.1-1.2 Specimen (test code = 03007-1) Band form neutrophils [#/volume] 4.36 K/uL 1.56-6.13 in Blood (test code = 88678-4) Lymphocytes [#/volume] in Specimen 2.91 K/uL 1.18-3.74 by Automated count (test code = 68041-7) mono # (test code = mono #) 0.50 K/uL 0.24-0.86 eos # (test code = eos #) 0.77 K/uL 0.04-0.36 H basophil # (test code = basophil 0.05 K/uL 0.01-0.08 #) NRBC% (test code = NRBC%) 0 /100 WBC 0-0.2 NRBC# (test code = NRBC#) 0 K/uL [facility] - Serum or Plasma 2021-05-24 01:10:00 Test Item Value Reference Range Interpretation Comments Glucose [Mass/volume] in Serum or 80 mg/dL 74-106 Plasma (test code = 2345-7) Urea nitrogen [Mass/volume] in 11 mg/dL 6-20 Serum or Plasma (test code = 3094-0) osmolality calculated,serum (test 280 mOsm/kg 280-300 code = osmolality calculated,serum) creatinine (test code = 0.55 mg/dL 0.50-0.90 creatinine) glomerular filtration rate (test >60.00 code = glomerular filtration rate) Urea nitrogen/Creatinine [Mass 20.0 12.0-20.0 Ratio] in Serum or Plasma (test code = 3097-3) sodium level (test code = sodium 141 mmol/L 135-145 level) potassium level (test code = 4.4 mmol/L 3.5-5.2 potassium level) chloride level (test code = 103 mmol/L 98-108 chloride level) CO2 (test code = CO2) 29 mmol/L 21-32 anion gap (test code = anion gap) 13.4 mEq/L 12.0-20.0 calcium level (test code = 9.0 mg/dL 8.6-10.0 calcium level) total protein (test code = total 6.3 g/dL 6.6-8.7 L protein) albumin (test code = albumin) 3.5 g/dL 3.5-5.2 globulin (test code = globulin) 2.8 g/dL 1.5-4.5 A/G ratio (test code = A/G ratio) 1.3 >1.0 bilirubin,total (test code = 0.3 mg/dL 0.0-1.2 bilirubin,total) AST/SGOT (test code = AST/SGOT) 21 U/L 15-32 Alanine aminotransferase 33 U/L 0-33 [Enzymatic activity/volume] in Serum or Plasma (test code = 1742-6) Alkaline phosphatase [Enzymatic 89 U/L 35-105 activity/volume] in Serum or Plasma (test code = 6768-6) [facility] GroupABO and Rh [id number] 16:26:00 Test Item Value Reference Range Interpretation Comments ABO grouping (test code = 883-9) A Rh type (test code = 06057-9) POS [facility] [id number] 15:29:03 Test Item Value Reference Range Interpretation Comments POC glucose (test 78 mg/dL 65-99 Realtime Captioner N kaitlyn: [place] code = 60684-5) ThelmaDevice ID: [id number] [facility] Pre/Post [id number] 22:21:44 Test Item Value Reference Range Interpretation Comments Ventricular rate (test code = 253) Atrial rate (test code = 255) CO interval (test code = 266) QRSD interval (test code = 260) QT interval (test code = 264) QTC interval (test code = 265) P axis 1 (test code = 267) QRS axis 1 (test code = 268) T wave axis (test code = 270) EKG impression (test Normal sinus code = 273) rhythm-Low voltage QRS-Cannot rule out Anterior infarct , age undetermined-Abnormal ECG-No previous ECGs available-Electronica lly Signed By Yash Beaulieu MD (2019) on 05/06/2021 4:21:39 PM [facility] Hospital[facility] and [id number] 19:32:00 Test Item Value Reference Range Interpretation Comments ABO grouping (test code = 883-9) A Rh type (test code = 45251-5) POS Antibody screen (gel) (test code = NEG 890-4) [facility], EXTREMITY, LOWER, JOINT, WITHOUT IV CONTRAST, RIGHT 2021-05-04 09:55:00Unlisted Reason for Exam - Click Yes and Enter Reason Below- >YesUnlisted Reason for Exam->avascular necrosis [facility] : 1970 Sex: FFINAL REPORT Right knee MRI. History: Knee pain. Avascular necrosis. Posttreatment evaluation of neoplasm. Partial knee replacement. Knee decompression. Comparison: None. Technique: Multiplanar multisequence MRI of the knee without contrast Findings: Medial compartment: No meniscal tear, cartilage abnormality, or MCL tear. Surgical screw tracts through the medial femoral condyle and anterior medial proximal tibia. Lateral compartment: No meniscal tear or cartilage abnormality. The LCL complex is normal. Surgical screw tracts through the posterior lateral femoral condyle. Intercondylar notch: The ACL and PCL are intact. Patellofemoral compartment: No chondromalacia or patellar dislocation. Extensor mechanism: The quadriceps and patellar tendons are normal. Other findings: There is a moderate-sized joint effusion and mild synovitis. The vessels are normal. Numerous scattered bone infarcts in the distal femur/femoral condyles and in the proximal tibia.Findings consistent with avascular necrosis most pronounced at the posterior medial femoral condyle best seen on sagittal image 24. No cortical collapse is seen. Marked heterogeneous appearance of the medial femoral condyle likely a combination of bone infarction/avascular necrosis and postsurgical change. IMPRESSION: Numerous scattered bone infarcts in the distal femur/femoral condyles and in the proximal tibia. Findings consistent with avascular necrosis most pronounced at the posterior medial femoral condyle best seen on sagittal image 24. No cortical collapse is seen. Marked heterogeneous appearance of the medial femoral condyle likely a combination of bone infarction/avascular necrosis and postsurgical change. Radiographs of the knee may be of benefit No meniscal tear, collateral ligament tear or cruciate ligament tear. Signed: Art Bermeo MDReport Verified Date/Time: 05/04/2021 09:55:28 Reading Location: [facility] Reading Room [address] [place] [address] , NON-TUNNELED CATH/PICC >5 Y.O. WITH [id number] 13:44:00Reason for Exam:->home [facility] : 1970 Sex: FFINAL REPORT Right upper extremity PICC insertion. History: Need for long-term IV antibiotics. Manager Retention: Dayne Gaines MD. Greenhouse Transplanter: None. Modality: Sonography and fluoroscopy. Sedation: None. Anesthesia: Two percent Lidocaine without epinephrine. Approach: Right basilic vein Estimated blood loss: < 5 cc. Specimen: None. Fluoroscopy Time: 0.1 min.Reference Air Kerma (Ka, r): 0.1 mGy. Technique: Informed writtenconsent was obtained. Discussion of risks, benefits, and alternatives were made with the patient. The patient expressed understanding and agreed to proceed. A universal timeout was performed prior to starting the procedure. All elements maximal sterile barrier technique was utilized for this procedure, including utilization of sterile scrub solution for skin prep, a large sterile sheet to cover theareas of the patient that were not prepped, and hand hygiene, mask, head covering, and sterile gown for performing radiologist and scrub technologist. The skin was anesthetized with 2% lidocaine. Ultrasound evaluation showed a patent and compressible right basilic vein, which was punctured under direct real-time ultrasound guidance with a micropuncture needle. An ultrasound image was saved to PACS. A 0.018 inch wire was placed through the needle into the right atrium. A 5 Faroese peel-away sheath was placed. The 5 Faroese double-lumen PICC line was measured and cut at 40 cm, and advanced throughthe sheath, with its distal tip terminating in the cavoatrial junction. The peel-away sheath was removed. The ports were flushed and aspirated easily following placement. The PICC line was secured with suture material. Vital signs were monitored throughout the procedure by a nurse, and remained stable. The patient tolerated the procedure well and left the department in the same condition. Results: Spot radiograph of the chest demonstrates the new right upper extremity PICC line to lie in the expected position with its tip overlying the cavoatrial junction. Impression: Successful, uncomplicated placement of a right upperextremity PICC using sonographic and fluoroscopic guidance. The catheter is ready for immediate use. Signed: Dayne Gaineseport Verified Date/Time: 05/03/2021 13:44:35 Reading Location: [place] [address] Angio Body Reading Room -CoV-2 (COVID-19) RNA [Presence] in Respiratory specimen by JULISSA with probe [id number] 03:30:3826590-1Znevnkwxo Medical GroupCOMPREHENSIVE METABOLIC [id number] 14:28:17 Test Item Value Reference Range Interpretation Comments GLUCOSE (test code = See_Comment [Autom ated message] The 2345-7) system which ge nerated this result tra nsmitted reference range : 70 - 99 MG/DL. The refe rence range was not u sed to interpret this result as normal/abnormal . BLOOD UREA NITROGEN See_Comment [Automa francine message] The (test code = 3091-6) system which generated this result tra nsmitted reference range : 6 - 20 MG/DL. The refe rence range was not u sed to interpret this result as normal/abnormal . CREATININE (test code = See_Comment [Au tomated message] The ) system which ge nerated this result tra nsmitted reference range : 0.60 - 1.30 MG/DL. The reference range was not used to interpr et this result as normal/abnormal . EGFR AA (test code = See_Comment [Autom ated message] The 86301-9) system which ge nerated this result tra nsmitted reference range : >60 ML/MIN/1.73. Th e reference range was not used to interpr et this result as normal/abnormal . EGFR (test code = See_Comment [Automate d message] The 37730-8) system which ge nerated this result tra nsmitted reference range : >60 ML/MIN/1.73. Th e reference range was not used to interpr et this result as normal/abnormal . BUN/CREAT RATIO (test See_Comment [Auto mated message] The code = 3097-3) system which generated this result tra nsmitted reference range : 6 - 28 RATIO. The refe rence range was not u sed to interpret this result as normal/abnormal . SODIUM (test code = See_Comment [Automa francine message] The 2951-2) system which ge nerated this result tra nsmitted reference range : 133 - 146 MEQ/L. The reference range was not u sed to interpret this result as normal/abnormal . POTASSIUM (test code = See_Comment [Aut omated message] The 3) system which ge nerated this result tra nsmitted reference range : 3.5 - 5.4 MEQ/L. The reference range was not u sed to interpret this result as normal/abnormal . CHLORIDE (test code = See_Comment [Auto mated message] The ) system which ge nerated this result tra nsmitted reference range : 95 - 107 MEQ/L. The reference range was not u sed to interpret this result as normal/abnormal . CO2 (test code = See_Comment [Automated message] The 1962-11) system which ge nerated this result tra nsmitted reference range : 19 - 31 MEQ/L. The refe rence range was not u sed to interpret this result as normal/abnormal . CALCIUM (test code = See_Comment [Autom ated message] The 91397-0) system which ge nerated this result tra nsmitted reference range : 8.5 - 10.5 MG/DL. The reference range was not used to interpr et this result as normal/abnormal . PROTEIN TOTAL (test See_Comment [Automa francine message] The code = 2885-2) system which generated this result tra nsmitted reference range : 6.1 - 8.3 G/DL. The r eference range was not u sed to interpret this result as normal/abnormal . ALBUMIN (test code = See_Comment [Autom ated message] The 61040-0) system which ge nerated this result tra nsmitted reference range : 3.5 - 5.2 G/DL. The r eference range was not u sed to interpret this result as normal/abnormal . GLOBULINS, SERUM, TOTAL See_Comment [Au tomated message] The (test code = 57721-2) system which generated this result tra nsmitted reference range : 1.9 - 3.7 G/DL. The r eference range was not u sed to interpret this result as normal/abnormal . A/G RATIO (test code = See_Comment [Aut omated message] The 1759-0) system which ge nerated this result tra nsmitted reference range : 1.0 - 2.6 RATIO. The reference range was not u sed to interpret this result as normal/abnormal . BILIRUBIN TOTAL (test See_Comment [Auto mated message] The code = 1974-2) system which generated this result tra nsmitted reference range : <=1.2 MG/DL. The refe rence range was not u sed to interpret this result as normal/abnormal . ALKALINE PHOSPHATASE 83 U/L 40-125 (test code = 6768-6) AST (SGOT) (test code = 21 U/L 9-40 1920-8) ALT (SGPT) (test code = 17 U/L 5-40 Unless 1744-2) Otherwise Indic ated, All Testing Perform ed At: [facility], [address] [place] [address] Stock Letterer: Tamika King [id number] Cap Accreditation N o. [id number] [facility]OL[facility] [id number] 14:28:17 Test Item Value Reference Range Interpretation Comments GLUCOSE (test code = See_Comment [Autom ated message] The 2345-7) system which ge nerated this result tra nsmitted reference range : 70 - 99 MG/DL. The refe rence range was not u sed to interpret this result as normal/abnormal . BLOOD UREA NITROGEN See_Comment [Automa francine message] The (test code = 3091-6) system which generated this result tra nsmitted reference range : 6 - 20 MG/DL. The refe rence range was not u sed to interpret this result as normal/abnormal . CREATININE (test code = See_Comment [Au tomated message] The 2160-0) system which ge nerated this result tra nsmitted reference range : 0.60 - 1.30 MG/DL. The reference range was not used to interpr et this result as normal/abnormal . EGFR AA (test code = See_Comment [Autom ated message] The 70763-0) system which ge nerated this result tra nsmitted reference range : >60 ML/MIN/1.73. Th e reference range was not used to interpr et this result as normal/abnormal . EGFR (test code = See_Comment [Automate d message] The 68328-1) system which ge nerated this result tra nsmitted reference range : >60 ML/MIN/1.73. Th e reference range was not used to interpr et this result as normal/abnormal . BUN/CREAT RATIO (test See_Comment [Auto mated message] The code = 3097-3) system which generated this result tra nsmitted reference range : 6 - 28 RATIO. The refe rence range was not u sed to interpret this result as normal/abnormal . SODIUM (test code = See_Comment [Automa francine message] The 2951-2) system which ge nerated this result tra nsmitted reference range : 133 - 146 MEQ/L. The reference range was not u sed to interpret this result as normal/abnormal . POTASSIUM (test code = See_Comment [Aut omated message] The 6803-3) system which ge nerated this result tra nsmitted reference range : 3.5 - 5.4 MEQ/L. The reference range was not u sed to interpret this result as normal/abnormal . CHLORIDE (test code = See_Comment [Auto mated message] The ) system which ge nerated this result tra nsmitted reference range : 95 - 107 MEQ/L. The reference range was not u sed to interpret this result as normal/abnormal . CO2 (test code = See_Comment [Automated message] The 1962-11) system which ge nerated this result tra nsmitted reference range : 19 - 31 MEQ/L. The refe rence range was not u sed to interpret this result as normal/abnormal . CALCIUM (test code = See_Comment [Autom ated message] The 73281-6) system which ge nerated this result tra nsmitted reference range : 8.5 - 10.5 MG/DL. The reference range was not used to interpr et this result as normal/abnormal . PROTEIN TOTAL (test See_Comment [Automa francine message] The code = 2885-2) system which generated this result tra nsmitted reference range : 6.1 - 8.3 G/DL. The r eference range was not u sed to interpret this result as normal/abnormal . ALBUMIN (test code = See_Comment [Autom ated message] The 33838-7) system which ge nerated this result tra nsmitted reference range : 3.5 - 5.2 G/DL. The r eference range was not u sed to interpret this result as normal/abnormal . GLOBULINS, SERUM, TOTAL See_Comment [Au tomated message] The (test code = 35153-6) system which generated this result tra nsmitted reference range : 1.9 - 3.7 G/DL. The r eference range was not u sed to interpret this result as normal/abnormal . A/G RATIO (test code = See_Comment [Aut omated message] The ) system which ge nerated this result tra nsmitted reference range : 1.0 - 2.6 RATIO. The reference range was not u sed to interpret this result as normal/abnormal . BILIRUBIN TOTAL (test See_Comment [Auto mated message] The code = 1974-2) system which generated this result tra nsmitted reference range : <=1.2 MG/DL. The refe rence range was not u sed to interpret this result as normal/abnormal . ALKALINE PHOSPHATASE 83 U/L 40-125 (test code = 6768-6) AST (SGOT) (test code = 21 U/L 9-40 1920-8) ALT (SGPT) (test code = 17 U/L 5-40 Unless 1744-2) Otherwise Indic ated, All Testing Perform ed At: [facility], [address] [facility], [place] [address] Stock Letterer: Tamika King [id number] Cap Accreditation N o. [id number] [facility] [id number] 12:27:01 Test Item Value Reference Range Interpretation Comments COLOR UA (test code = DARK YELLOW YELLOW-STRAW A 5778-6) CLARITY UA (test code CLEAR CLEAR = 5767-9) SPECIFIC GRAVITY UA (NOTE) 1.005-1.035 UNABLE (test code = 5811-5) TO DETE RMINE RESULT DUE TO INTERFERENCE FR OM URINE PIGMENT. WBC UA (test code = 0-5 See_Comment [Automa francine message] 62083-8) The system [employer] generated this result transmit francine reference range : 0 - 5 /HPF. The reference range was not used to interpret this result as normal/abnormal . RBC UA (test code = 3-5 See_Comment [Automa francine message] 50475-4) The system [employer] generated this result transmit francine reference range : 0 - 5 /HPF. The reference range was not used to interpret this result as normal/abnormal . EPITHELIAL CELLS (test 0-5 See_Comment [Aut omated message] code = 34662-5) The system [employer] generated this result transmit francine reference range : 0 - 10 /HPF. The reference range was not used to interpret this result as normal/abnormal . BACTERIA (test code = NONE SEEN NONE SEEN 49375-7) CRYSTALS (test code = PRESENT NONE SEEN A 5782-8) CALCIUM OX ALATE CRYSTALS HYALINE CASTS (test NONE SEEN NONE-TRACE Unless code = 82417-9) Otherwise In dicated, All Testing Performed At: [facility], [address] [facility], [place] [address] Laboratory Dire ctor: Parish espinosa M.D. CLI A Number [id number] Cap Accreditati on No. Lab Interpretation Abnormal (test code = 06506-9) [facility] [id number] 12:27:01 Test Item Value Reference Range Interpretation Comments COLOR UA (test code = DARK YELLOW YELLOW-STRAW A 5778-6) CLARITY UA (test code CLEAR CLEAR = 5767-9) SPECIFIC GRAVITY UA (NOTE) 1.005-1.035 UNABLE (test code = 5811-5) TO DETE RMINE RESULT DUE TO INTERFERENCE FR OM URINE PIGMENT. WBC UA (test code = 0-5 See_Comment [Automa francine message] 98056-3) The system [employer] generated this result transmit francine reference range : 0 - 5 /HPF. The reference range was not used to interpret this result as normal/abnormal . RBC UA (test code = 3-5 See_Comment [Automa francine message] 58200-6) The system [employer] generated this result transmit francine reference range : 0 - 5 /HPF. The reference range was not used to interpret this result as normal/abnormal . EPITHELIAL CELLS (test 0-5 See_Comment [Aut omated message] code = 52623-1) The system [employer] generated this result transmit francine reference range : 0 - 10 /HPF. The reference range was not used to interpret this result as normal/abnormal . BACTERIA (test code = NONE SEEN NONE SEEN 53450-3) CRYSTALS (test code = PRESENT NONE SEEN A 5782-8) CALCIUM OX ALATE CRYSTALS HYALINE CASTS (test NONE SEEN NONE-TRACE Unless code = 17712-9) Otherwise In dicated, All Testing Performed At: [facility], [address] [place] [address] Laboratory Dire ctor: Parish espinosa M.D. CLI A Number [id number] Cap Accreditati on No. Lab Interpretation Abnormal (test code = 68060-5) [facility] W/AUTO DIFF WITH [id number] 09:34:22 Test Item Value Reference Range Interpretation Comments WHITE BLOOD CELL COUNT See_Comment [Aut omated message] (test code = 06755-3) The [employer] stem which generated this result transmitted ref erence range: 3.5 - 11 .0 K/UL. The reference r markus was not used to int erpret this result as normal/abnormal . RED BLOOD CELL COUNT See_Comment [Autom ated message] (test code = 47015-6) The sy stem which generated this result transmitted ref erence range: 3.80 - 5 .40 M/UL. The refer ence range was not u sed to interpret this result as normal/abnor mal. HEMOGLOBIN (test code = See_Comment [Au tomated message] 718-7) The system [employer] h generated this result transmitted ref erence range: 11.5 - 1 5.5 G/DL. The refer ence range was not u sed to interpret this result as normal/abnor mal. HEMATOCRIT (test code = 42.0 % 34.0-45.0 02170-6) MEAN CORPUSCULAR VOLUME 94.8 fL 80.0-99.0 (test code = 52985-1) MEAN CORPUSCULAR 31.4 PG 25.0-33.0 HEMOGLOBIN (test code = 86053-4) MEAN CORPUSCULAR See_Comment [Automated message] HEMOGLOBIN CONC (test The sy stem which code = 47179-3) generated th is result transmitted ref erence range: 31 - 36 G/DL. The reference r markus was not used to int erpret this result as normal/abnormal . RED CELL DISTRIBUTION 11.8 % 11.5-15.0 WIDTH (test code = 91559-6) NEUTROPHILS % (test 66.2 % 40.0-75.0 code = 35374-3) LYMPHOCYTES % (test 25.8 % 20.0-45.0 code = 57788-7) MONOCYTES % (test code 5.6 % 4.0-12.0 = 40841-0) EOSINOPHILS % (test 1.9 % 0.0-7.0 code = 53053-6) BASOPHILS % (test code 0.3 % 0.0-2.0 = 46596-4) IMMATURE GRANULOCYTES 0.2 % 0.0-1.0 (test code = 23309-4) NUCLEATED RBC'S See_Comment Unl ess MYELOPEROX STAIN (test Other cuevas Indicated, code = 29039-6) All Testing Performed At: [facility], [address] [place] [address] Laboratory Dire ctor: Parish espinosa M.D. CLIA Numb er [id number] Cap Accreditation N o. [id number] [Auto mated message] The sy stem which generated this result transmit francine reference range : 0.00 - 0.11 K/UL. The reference range was not used to interpr et this result as normal/abnormal . PLATELET COUNT (test See_Comment [Autom ated message] code = 42252-7) The system w hich generated this result transmitted ref erence range: 130 - 40 0 K/UL. The reference r markus was not used to int erpret this result as normal/abnormal . NEUTROPHILS ABSOLUTE See_Comment [Autom ated message] COUNT (test code = The syste m which 05058-6) generated this result transmitted ref erence range: 1.50 - 7 .50 K/UL. The refer ence range was not u sed to interpret this result as normal/abnor mal. LYMPHOCYTES ABSOLUTE See_Comment [Autom ated message] COUNT (test code = The syste m which 87774-8) generated this result transmitted ref erence range: 1.00 - 4 .00 K/UL. The refer ence range was not u sed to interpret this result as normal/abnor mal. MONOCYTES ABSOLUTE See_Comment [Automat ed message] COUNT (test code = The syste m which 69506-0) generated this result transmitted ref erence range: 0.20 - 1 .00 K/UL. The refer ence range was not u sed to interpret this result as normal/abnor mal. BASOPHILS ABSOLUTE See_Comment [Automat ed message] COUNT (test code = The syste m which 06757-2) generated this result transmitted ref erence range: 0.00 - 0 .20 K/UL. The refer ence range was not u sed to interpret this result as normal/abnor mal. IMMATURE GRANS (ABS) See_Comment [Autom ated message] (test code = 9987) The syste m which generated this result transmitted ref erence range: 0.00 - 0 .10 K/UL. The refer ence range was not u sed to interpret this result as normal/abnor mal. [facility] W/AUTO DIFF WITH [id number] 09:34:22 Test Item Value Reference Range Interpretation Comments WHITE BLOOD CELL COUNT See_Comment [Aut omated message] (test code = 50065-8) The sy stem which generated this result transmitted ref erence range: 3.5 - 11 .0 K/UL. The reference r markus was not used to int erpret this result as normal/abnormal . RED BLOOD CELL COUNT See_Comment [Autom ated message] (test code = 21860-1) The sy stem which generated this result transmitted ref erence range: 3.80 - 5 .40 M/UL. The refer ence range was not u sed to interpret this result as normal/abnor mal. HEMOGLOBIN (test code = See_Comment [Au tomated message] 718-7) The system whic h generated this result transmitted ref erence range: 11.5 - 1 5.5 G/DL. The refer ence range was not u sed to interpret this result as normal/abnor mal. HEMATOCRIT (test code = 42.0 % 34.0-45.0 57485-7) MEAN CORPUSCULAR VOLUME 94.8 fL 80.0-99.0 (test code = 67465-6) MEAN CORPUSCULAR 31.4 PG 25.0-33.0 HEMOGLOBIN (test code = 24203-4) MEAN CORPUSCULAR See_Comment [Automated message] HEMOGLOBIN CONC (test The sy stem which code = 81417-2) generated th is result transmitted ref erence range: 31 - 36 G/DL. The reference r markus was not used to int erpret this result as normal/abnormal . RED CELL DISTRIBUTION 11.8 % 11.5-15.0 WIDTH (test code = 74600-3) NEUTROPHILS % (test 66.2 % 40.0-75.0 code = 81875-0) LYMPHOCYTES % (test 25.8 % 20.0-45.0 code = 60986-4) MONOCYTES % (test code 5.6 % 4.0-12.0 = 54118-8) EOSINOPHILS % (test 1.9 % 0.0-7.0 code = 98476-9) BASOPHILS % (test code 0.3 % 0.0-2.0 = 85559-1) IMMATURE GRANULOCYTES 0.2 % 0.0-1.0 (test code = 66128-8) NUCLEATED RBC'S See_Comment Unl ess MYELOPEROX STAIN (test Other cuevas Indicated, code = 04162-4) All Testing Performed At: [facility], [address] [place] [address], [place] [address] Laboratory Dire ctor: Parish espinosa M.D. CLIA Numb er [id number] Cap Accreditation N o. [id number] [Auto mated message] The sy stem which generated this result transmit francine reference range : 0.00 - 0.11 K/UL. The reference range was not used to interpr et this result as normal/abnormal . PLATELET COUNT (test See_Comment [Autom ated message] code = 92106-4) The system w [employer] generated this result transmitted ref erence range: 130 - 40 0 K/UL. The reference r markus was not used to int erpret this result as normal/abnormal . NEUTROPHILS ABSOLUTE See_Comment [Autom ated message] COUNT (test code = The [employer] which 51430-8) generated this result transmitted ref erence range: 1.50 - 7 .50 K/UL. The refer ence range was not u sed to interpret this result as normal/abnor mal. LYMPHOCYTES ABSOLUTE See_Comment [Autom ated message] COUNT (test code = The [employer] which 04332-4) generated this result transmitted ref erence range: 1.00 - 4 .00 K/UL. The refer ence range was not u sed to interpret this result as normal/abnor mal. MONOCYTES ABSOLUTE See_Comment [Automat ed message] COUNT (test code = The [employer] which 61153-5) generated this result transmitted ref erence range: 0.20 - 1 .00 K/UL. The refer ence range was not u sed to interpret this result as normal/abnor mal. BASOPHILS ABSOLUTE See_Comment [Automat ed message] COUNT (test code = The [employer] [place] which 59951-5) generated this result transmitted ref erence range: 0.00 - 0 .20 K/UL. The refer ence range was not u sed to interpret this result as normal/abnor mal. IMMATURE GRANS (ABS) See_Comment [Autom ated message] (test code = 9987) The syste m which generated this result transmitted ref erence range: 0.00 - 0 .10 K/UL. The refer ence range was not u sed to interpret this result as normal/abnor mal. [facility] Urine by [id number] 12:05:00[facility], [id number] 12:05:00 Test Item Value Reference Range Interpretation Comments Gentamicin [Susceptibility] by <=2 Minimum inhibitory concentration (VIVIENNE) (test code = 267-5) Ampicillin [Susceptibility] by >16 Minimum inhibitory concentration (VIVIENNE) (test code = 28-1) ceFAZolin [Susceptibility] by >16 Minimum inhibitory concentration (VIVIENNE) (test code = 76-0) Trimethoprim+Sulfamethoxazole =2/38 [Susceptibility] by Minimum inhibitory concentration (VIVIENNE) (test code = 516-5) Tetracycline [Susceptibility] by <=2 Minimum inhibitory concentration (VIVIENNE) (test code = 496-0) Amoxicillin+Clavulanate =16/8 [Susceptibility] by Minimum inhibitory concentration (VIVIENNE) (test code = 20-8) Tobramycin [Susceptibility] by <=2 Minimum inhibitory concentration (VIVIENNE) (test code = 508-2) Nitrofurantoin [Susceptibility] by <=16 Minimum inhibitory concentration (VIVIENNE) (test code = 363-2) cefOXitin [Susceptibility] by <=4 Minimum inhibitory concentration (VIVIENNE) (test code = 116-4) levoFLOXacin [Susceptibility] by >4 Minimum inhibitory concentration (VIVIENNE) (test code = 02875-4) cefTAZidime [Susceptibility] by <=2 Minimum inhibitory concentration (VIVIENNE) (test code = 133-9) cefTRIAXone [Susceptibility] by <=1 Minimum inhibitory concentration (VIVIENNE) (test code = 141-2) Ciprofloxacin [Susceptibility] by >2 Minimum inhibitory concentration (VIVIENNE) (test code = 185-9) Ampicillin+Sulbactam =16/8 [Susceptibility] by Minimum inhibitory concentration (VIVIENNE) (test code = 32-3) Ertapenem [Susceptibility] by <=0.25 Minimum inhibitory concentration (VIVIENNE) (test code = 28008-1) Aztreonam [Susceptibility] by <=2 Minimum inhibitory concentration (VIVIENNE) (test code = 44-8) Cefepime [Susceptibility] by <=1 Minimum inhibitory concentration (VIVIENNE) (test code = 6644-9) Meropenem [Susceptibility] by <=0.5 Minimum inhibitory concentration (VIVIENNE) (test code = 6652-2) Moxifloxacin [Susceptibility] by >4 Minimum inhibitory concentration (VIVIENNE) (test code = 15775-5) Amikacin [Susceptibility] by <=8 Minimum inhibitory concentration (VIVIENNE) (test code = 12-5) Piperacillin+Tazobactam =64/4 [Susceptibility] by Minimum inhibitory concentration (VIVIENNE) (test code = 412-7) Ceftaroline [Susceptibility] by 0.5 ug/mL Minimum inhibitory concentration (VIVIENNE) (test code = 60493-9) Tigecycline [Susceptibility] by <=1 Minimum inhibitory concentration (VIVIENNE) (test code = 05462-9) [facility]dipstick[facility] panel - [id number] 14:46:00 Test Item Value Reference Range Interpretation Comments Leukocytes (test code = Leukocytes) Large Nitrite (test code = Nitrite) positive Urobilinogen (test code = 8 Urobilinogen) Protein (test code = Protein) 100 pH (test code = pH) 7.0 Blood (test code = Blood) Negative Specific Woodward (test code = 1.020 Specific [place]) Ketone (test code = Ketone) Small Bilirubin (test code = Bilirubin) Moderate Glucose (test code = Glucose) 250 Appearance (test code = Appearance) Turbid Color (test code = Color) Red [facility] in Urine by [id number] 06:29:00[facility]acteria Ur [facility], [id number] 06:29:00 Test Item Value Reference Range Interpretation Comments Ampicillin [Susceptibility] by <2 Minimum inhibitory concentration (VIVIENNE) (test code = 28-1) Penicillin [Susceptibility] by 2 ug/mL Minimum inhibitory concentration (VIVIENNE) (test code = 6932-8) Tetracycline [Susceptibility] by >8 Minimum inhibitory concentration (VIVIENNE) (test code = 496-0) Nitrofurantoin [Susceptibility] by <32 Minimum inhibitory concentration (VIVIENNE) (test code = 363-2) Vancomycin [Susceptibility] by 1 ug/mL Minimum inhibitory concentration (VIVIENNE) (test code = 524-9) levoFLOXacin [Susceptibility] by <1 Minimum inhibitory concentration (VIVIENNE) (test code = 60580-1) Ciprofloxacin [Susceptibility] by <1 Minimum inhibitory concentration (VIVIENNE) (test code = 185-9) Linezolid [Susceptibility] by Minimum <2 inhibitory concentration (VIVIENNE) (test code = 17584-9) DAPTOmycin [Susceptibility] by <1 Minimum inhibitory concentration (VIVIENNE) (test code = 13030-4) [facility] Hospital[facility] macro (dipstick) panel - [id number] 15:20:00 Test Item Value Reference Range Interpretation Comments Leukocytes (test code = Leukocytes) Negative Nitrite (test code = Nitrite) positive Urobilinogen (test code = 1 Urobilinogen) Protein (test code = Protein) Trace pH (test code = pH) 7.0 Blood (test code = Blood) Negative Specific Woodward (test code = 1.015 Specific [place]) Ketone (test code = Ketone) Negative Bilirubin (test code = Bilirubin) Small Glucose (test code = Glucose) 100 Appearance (test code = Appearance) Cloudy Color (test code = Color) Yellow [facility] macro (dipstick) panel - [id number] 12:11:00 Test Item Value Reference Range Interpretation Comments Leukocytes (test code = Leukocytes) Large Nitrite (test code = Nitrite) positive Urobilinogen (test code = 2 Urobilinogen) Protein (test code = Protein) 30 pH (test code = pH) 6.0 Blood (test code = Blood) Negative Specific Woodward (test code = 1.010 Specific [place]) Ketone (test code = Ketone) Trace Bilirubin (test code = Bilirubin) Small Glucose (test code = Glucose) 100 Appearance (test code = Appearance) Cloudy Color (test code = Color) [place] [facility] HospitalUrinalysis macro (dipstick) panel - [id number] 12:11:00 Test Item Value Reference Range Interpretation Comments Leukocytes (test code = Leukocytes) Large Nitrite (test code = Nitrite) positive Urobilinogen (test code = 2 Urobilinogen) Protein (test code = Protein) 30 pH (test code = pH) 6.0 Blood (test code = Blood) Negative Specific Woodward (test code = 1.010 Specific Woodward) Ketone (test code = Ketone) Trace Bilirubin (test code = Bilirubin) Small Glucose (test code = Glucose) 100 Appearance (test code = Appearance) Cloudy Color (test code = Color) [facility] HospitalUrinalysis macro (dipstick) panel - [id number] 12:11:00 Test Item Value Reference Range Interpretation Comments Leukocytes (test code = Leukocytes) Large Nitrite (test code = Nitrite) positive Urobilinogen (test code = 2 Urobilinogen) Protein (test code = Protein) 30 pH (test code = pH) 6.0 Blood (test code = Blood) Negative Specific Woodward (test code = 1.010 Specific Woodward) Ketone (test code = Ketone) Trace Bilirubin (test code = Bilirubin) Small Glucose (test code = Glucose) 100 Appearance (test code = Appearance) Cloudy Color (test code = Color) [facility] HospitalBacteria identified in Urine by [id number] 10:44:00 Test Item Value Reference Range Interpretation Comments Bacteria identified in no growth at 2 days Urine by Culture (test code = 630-4) [facility] HospitalMR, PELVIS, WITHOUT / WITH IV [id number] 10:43:00 Please order enterography protocol to assess the small bowel for Crohn's diseaseMRI ENTEROGRAPHY (SMALL BOWEL EVALUATION)Unlisted Reason for Exam - Click Yes and Enter Reason Below->YesUnlisted Reason for Exam->Crohn's disease of both small and large intestine without complication (HCCode) (K50.80) [facility] : 1970 Sex: FFINAL REPORT TECHNIQUE: MRI ENTEROGRAPHY WITHOUT and WITH intravenous contrast. INDICATION: Crohn's disease of both small and large intestine. COMPARISON: CT 06/19/2019. FINDINGS: There is an implanted generator pack for spinal stimulator device in the right anteriorabdominal wall. The subselectively artifact from the metallic device limits evaluation of the right hemiabdomen. LOWER THORAX: Unremarkable. LIVER: No hepatic signal abnormality. No focal hepatic lesions. BILIARY: Prior cholecystectomy.. There is prominence of the common bile duct measuring up to 0.8 cm likely related to reservoir effect from prior cholecystectomy. No significant intrahepatic biliarydilatation. SPLEEN: No splenomegaly.PANCREAS: No focal masses or ductal dilatation. ADRENALS: No adr enal nodules.KIDNEYS/URETERS: No hydronephrosis or solid mass lesions. 3.3 cm cyst in the upper poleof the left kidney. 1.4 cm cyst in the upper pole of the right kidney. Few additional subcentimeter cysts in the left kidney. PELVIC ORGANS/BLADDER: Prior hysterectomy. No adnexal mass. The bladder is u nremarkable. PERITONEUM/RETROPERITONEUM: No free fluid.LYMPH NODES: No lymphadenopathy.VESSELS: Unremarkable. GI TRACT: Status post right hemicolectomy with ileocolic anastomosis in the right upper quadrant of the abdomen. There is limited evaluation of the small bowel loops due to incomplete distention and secondary to the susceptibility artifact from the implanted device in the abdominal wall. There is no small bowel dilation or definite bowel wall thickening. There is moderate stool in colon. Thepreviously suggested wall thickening of the distal colon is not definitely visualized on current exam. BONES AND SOFT TISSUES: Degenerative changes in the spine.. IMPRESSION:Limited evaluation of the right hemiabdomen secondary to susceptibility artifact from the implanted device in the right abdominal wall. On subsequent follow-up exams, consider evaluation with CT enterography. No definite findings of active inflammation the small bowel and colon. Signed: Jaylin Chavez MDReport Verified Date/Time: 11/23/2020 10:43:40 Reading Location: [facility] Diagnostic Imaging Reading Room - [place] [address] MR, ABDOMEN, WITHOUT / WITH IV CONTRAST 2020-11-23 10:43:00Please order enterography protocol to assess the small bowel for Crohn's diseaseMRI ENTEROGRAPHY (SMALL BOWEL EVALUATION)Unlisted Reason for Exam - Click Yes and Enter Reason Below->YesUnlisted Reason for Exam- >Crohn's disease of both small and large intestine without complication (HCCode) (K50.80)[facility] : 1970 Sex: FFINAL REPORT TECHNIQUE: MRI ENTEROGRAPHY WITHOUT and WITH intravenous contrast. INDICATION: Crohn's disease of both small and large intestine. COMPARISON: CT 06/19/2019. FINDINGS: There is an implanted generator pack for spinal stimulator device in the right anteriorabdominal wall. The subselectively artifact from the metallic device limits evaluation of the right hemiabdomen. LOWER THORAX: Unremarkable. LIVER: No hepatic signal abnormality. No focal hepatic lesions. BILIARY: Prior cholecystectomy.. There is prominence of the common bile duct measuring up to 0.8 cm likely related to reservoir effect from prior cholecystectomy. No significant intrahepatic biliary dilatation. SPLEEN: No splenomegaly.PANCREAS: No focal masses or ductal dilatation. ADRENALS: No adrenal nodules.KIDNEYS/URETERS: No hydronephrosis or solid mass lesions. 3.3 cm cyst in the upper poleof the left kidney. 1.4 cm cyst in the upper pole of the right kidney. Few additional subcentimeter cysts in the left kidney. PELVIC ORGANS/BLADDER: Prior hysterectomy. No adnexal mass. The bladder is unremarkable. PERITONEUM/RETROPERITONEUM: No free fluid.LYMPH NODES: No lymphadenopathy.VESSELS: Unremarkable. GI TRACT: Status post right hemicolectomy with ileocolic anastomosis in the right upper quadrant of the abdomen. There is limited evaluation of the small bowel loops due to incomplete distention and secondary to the susceptibility artifact from the implanted device in the abdominal wall. There is no small bowel dilation or definite bowel wall thickening. There is moderate stool in colon. Thepreviously suggested wall thickening of the distal colon is not definitely visualized on current exam. BONES AND SOFT TISSUES: Degenerative changes in the spine.. IMPRESSION:Limited evaluation of the right hemiabdomen secondary to susceptibility artifact from the implanted device in the right abdominal wall. On subsequent follow-up exams, consider evaluation with CT enterography. No definite findings of active inflammation the small bowel and colon. Signed: Jaylin Chavez MDReport Verified Date/Time: 11/23/2020 10:43:40 Reading Location: [facility] Diagnostic Imaging Reading Room - [place] [id number] Urinalysis macro (dipstick) panel - Urine 2020-11-17 14:29:00 Test Item Value Reference Range Interpretation Comments Leukocytes (test code = Negative Leukocytes) Nitrite (test code = Nitrite) positive Urobilinogen (test code = .2 Urobilinogen) Protein (test code = Protein) Negative pH (test code = pH) 7.0 Blood (test code = Blood) Negative Specific Woodward (test code = 1.025 Specific Woodward) Ketone (test code = Ketone) Negative Bilirubin (test code = Bilirubin) Negative Glucose (test code = Glucose) Negative Appearance (test code = Cloudy Appearance) Color (test code = Color) Dark Yellow [facility] HospitalUrinalysis macro (dipstick) panel - [id number] 14:29:00 Test Item Value Reference Range Interpretation Comments Leukocytes (test code = Negative Leukocytes) Nitrite (test code = Nitrite) positive Urobilinogen (test code = .2 Urobilinogen) Protein (test code = Protein) Negative pH (test code = pH) 7.0 Blood (test code = Blood) Negative Specific Woodward (test code = 1.025 Specific Woodward) Ketone (test code = Ketone) Negative Bilirubin (test code = Bilirubin) Negative Glucose (test code = Glucose) Negative Appearance (test code = Cloudy Appearance) Color (test code = Color) Dark Yellow [facility] HospitalUrinalysis macro (dipstick) panel - [id number] 14:29:00 Test Item Value Reference Range Interpretation Comments Leukocytes (test code = Negative Leukocytes) Nitrite (test code = Nitrite) positive Urobilinogen (test code = .2 Urobilinogen) Protein (test code = Protein) Negative pH (test code = pH) 7.0 Blood (test code = Blood) Negative Specific Woodward (test code = 1.025 Specific Woodward) Ketone (test code = Ketone) Negative Bilirubin (test code = Bilirubin) Negative Glucose (test code = Glucose) Negative Appearance (test code = Cloudy Appearance) Color (test code = Color) Dark Yellow [facility] GroupBacteria identified in Urine by [id number] 12:21:00Bacteria Ur [facility] GroupBacteria identified in Urine by [id number] 12:21:00Bacteria Ur [facility] GroupBacteria identified in Urine by [id number] 12:21:00Bacteria Ur [facility]stick[facility] panel - [id number] 14:00:55 Test Item Value Reference Range Interpretation Comments Leukocytes (test code = Leukocytes) Negative Nitrite (test code = Nitrite) positive Urobilinogen (test code = .2 Urobilinogen) Protein (test code = Protein) 30 pH (test code = pH) 6.0 Blood (test code = Blood) Negative Specific Woodward (test code = 1.020 Specific Wood[place]) Ketone (test code = Ketone) Trace Bilirubin (test code = Bilirubin) Small Glucose (test code = Glucose) 100 Appearance (test code = Appearance) Turbid Color (test code = Color) [facility] HospitalUrinalysis macro (dipstick) panel - [id number] 14:00:55 Test Item Value Reference Range Interpretation Comments Leukocytes (test code = Leukocytes) Negative Nitrite (test code = Nitrite) positive Urobilinogen (test code = .2 Urobilinogen) Protein (test code = Protein) 30 pH (test code = pH) 6.0 Blood (test code = Blood) Negative Specific Woodward (test code = 1.020 Specific Woodward) Ketone (test code = Ketone) Trace Bilirubin (test code = Bilirubin) Small Glucose (test code = Glucose) 100 Appearance (test code = Appearance) Turbid Color (test code = Color) [place] [facility] [id number] 10:40:00 Test Item Value Reference Range Interpretation Comments Coronavirus (COVID-19) Not Detected (08/03/20 JULISSA (test code = 5:40 AM) Coronavirus (COVID-19) JULISSA) [facility] [id number] 10:32:00 Test Item Value Reference Range Interpretation Comments quest collection (test code = quest quest collection) [facility] [id number] 10:32:00 Test Item Value Reference Range Interpretation Comments quest collection (test code = quest quest collection) [facility] [id number] 17:04:00 Test Item Value Reference Range Interpretation Comments ABO/Rh (test code = ABO/Rh) A POS [facility] [id number] 17:04:00 Test Item Value Reference Range Interpretation Comments Antibody Scrn (test Negative (05/11/20 code = Antibody Scrn) 11:04 AM) [facility]COVID-19) Ag [Presence] in Respiratory specimen by Rapid [id number] 12:34:00 Test Item Value Reference Range Interpretation Comments SARS-CoV - 2 (test code = SARS-CoV - negative 2) [facility] HospitalUrinalysis macro (dipstick) panel - [id number] 11:41:00 Test Item Value Reference Range Interpretation Comments Leukocytes (test code = Leukocytes) Negative Nitrite (test code = Nitrite) negative Urobilinogen (test code = 1 Urobilinogen) Protein (test code = Protein) Negative pH (test code = pH) 7.0 Blood (test code = Blood) Negative Specific Woodward (test code = 1.025 Specific Woodward) Ketone (test code = Ketone) Negative Bilirubin (test code = Bilirubin) Small Glucose (test code = Glucose) Negative Appearance (test code = Appearance) Cloudy Color (test code = Color) Yellow [facility] HospitalUrinalysis macro (dipstick) panel - [id number] 11:41:00 Test Item Value Reference Range Interpretation Comments Leukocytes (test code = Leukocytes) Negative Nitrite (test code = Nitrite) negative Urobilinogen (test code = 1 Urobilinogen) Protein (test code = Protein) Negative pH (test code = pH) 7.0 Blood (test code = Blood) Negative Specific Woodward (test code = 1.025 Specific Woodward) Ketone (test code = Ketone) Negative Bilirubin (test code = Bilirubin) Small Glucose (test code = Glucose) Negative Appearance (test code = Appearance) Cloudy Color (test code = Color) Yellow [facility] HospitalHemoglobin A1c [Mass/volume] in [id number] 11:30:00 Test Item Value Reference Range Interpretation Comments Hemoglobin A1c [Mass/volume] in Blood 5.8 % 4.0-6.0 (test code = 25884-5) [facility] HospitalComprehensive metabolic 2000 panel - [...] Plasma (test code = 6768-6) [facility] HospitalMagnesium [Moles/volume] in Unspecified specimen 2020-05-04 11:30:00 Test Item Value Reference Range Interpretation Comments magnesium level (test code = 2.1 mg/dL 1.6-2.6 magnesium level) [facility] HospitalCreatine kinase [Enzymatic activity/volume] in Serum or [id number] 11:30:00 Test Item Value Reference Range Interpretation Comments creatine kinase (test code = creatine 49 U/L 20-180 kinase) [facility] HospitalPT/[id number] 11:30:00 Test Item Value Reference Range Interpretation Comments prothrombin time (test code = 9.9 seconds 10.3-12.3 L prothrombin time) INR in Blood by Coagulation assay 0.92 (test code = 03307-5) [facility] Hospitalpartial thromboplastin [id number] 11:30:00 Test Item Value Reference Range Interpretation Comments INR in Blood by Coagulation 27.1 seconds 22.5-37.0 assay (test code = 07821-0) [facility] HospitalUrinalysis complete W Reflex Culture panel - Urine 2020-05-04 11:30:00 Test Item Value Reference Range Interpretation Comments Color of Urine by Auto (test dark yellow code = 56610-4) Appearance of Urine (test code clear clear = 5767-9) Glucose [Presence] in Urine by negative negative Automated test strip (test code = 23148-8) Bilirubin.total [Mass/volume] negative negative in Urine (test code = 1978-6) Ketones [Mass/volume] in Urine negative negative by Automated test strip (test code = 00062-3) Specific gravity of Urine by 1.025 1.003-1.030 Automated test strip (test code = 48673-9) blood urine (test code = blood negative negative urine) pH of Urine (test code = 7.500 5-9 2756-5) protein urine (UA) (test code = trace negative protein urine (UA)) Urobilinogen [Presence] in =2.0 0.2-1.0 H Urine (test code = 02147-6) Nitrite [Presence] in Urine by negative negative Test strip (test code = 5802-4) Leukocyte esterase [Presence] negative negative in Urine by Automated test strip (test code = 30949-2) Erythrocytes [#/volume] in =1-5 0-5 Urine by Automated count (test code = 798-9) Leukocytes [#/area] in Urine <1 0-5 sediment by Automated count (test code = 35870-8) Epithelial cells [Presence] in =6-10 0-5 Urine sediment by Light microscopy (test code = 78403-5) Bacteria identified in Urine by none detected none detect Culture (test code = 630-4) Casts [#/area] in Urine =2-5 none detect sediment by Automated count (test code = 34040-9) urine culture added? (test code no = urine culture added?) [facility] HospitalThyrotropin [Units/volume] in Serum or [id number] 11:30:00 Test Item Value Reference Range Interpretation Comments Thyrotropin [Units/volume] in 4.22 uIU/mL 0.36-3.74 H Serum or Plasma (test code = 3016-3) [facility] HospitalThyroxine (T4) free [Mass/volume] in Serum or Plasma 2020-05-04 11:30:00 Test Item Value Reference Range Interpretation Comments free T4 (test code = free T4) 1.27 NG/dL 0.93-1.7 [facility] HospitalTriiodothyronine (T3) Free [Mass/volume] in Serum or [id number] 11:30:00 Test Item Value Reference Range Interpretation Comments free T3 (test code = free T3) 2.89 pg/mL 2.0-4.4 [facility] W Auto Differential panel - [id number] 11:30:00 Test Item Value Reference Range Interpretation Comments white blood count (test code = 5.9 K/uL 4.0-11.5 white blood count) red blood count (test code = red 4.02 M/uL 3.80-5.20 blood count) hemoglobin (test code = 12.8 g/dL 10.5-15.7 hemoglobin) hematocrit (test code = 40.4 % 34.0-50.0 hematocrit) MCV [Entitic volume] (test code = 100.5 fL 86-100 H 21656-0) mean corpuscular hemoglobin (test 31.8 pg 26.2-33.4 [...] 44.4-80.1 leukocytes in Blood (test code = 45340-0) Immature granulocytes [#/volume] 0.0 K/uL 0.0-0.03 in Blood (test code = 12094-5) lymphocyte% (test code = 35.9 % 10.0-50.0 lymphocyte%) mono % (test code = mono %) 4.7 % 3.6-12.0 eos % (test code = eos %) 2.2 % 0.0-5.4 Basophils/100 leukocytes in 0.5 % 0.1-1.2 Unspecified specimen (test code = 59695-5) Band form neutrophils [#/volume] 3.35 K/uL 1.56-6.13 in Blood (test code = 92128-6) Lymphocytes [#/volume] in 2.1 K/uL 1.18-3.74 Unspecified specimen by Automated count (test code = 69112-3) mono # (test code = mono #) 0.28 K/uL 0.24-0.86 eos # (test code = eos #) 0.13 K/uL 0.04-0.36 basophil # (test code = basophil 0.03 K/uL 0.01-0.08 #) NRBC% (test code = NRBC%) 0 /100 WBC 0-0.2 NRBC# (test code = NRBC#) 0 K/uL [facility] HospitalDifferential panel, method unspecified - [id number] 11:30:00NeutrophilsBandLymphocyteAtypical LymphMonocyteEosinophilBasophilMetamyelocyteAbs Neutrophil Count (Man)Abs Lymph Count (Man)Abs Monocyte Count (Man)Abs Eosinophil Count (Man)Abs Basophil Count (Man)Platelet EstimateMarion General HospitalHemoglobin A1c/Hemoglobin.total in [id number] 11:30:00 Test Item Value Reference Range Interpretation Comments Hemoglobin A1c [Mass/volume] in Blood 5.8 % 4.0-6.0 (test code = 47182-2) [facility] HospitalComprehensive metabolic 2000 panel - [...] Plasma (test code = 6768-6) [facility] HospitalMagnesium [Moles/volume] in Unspecified specimen 2020-05-04 11:30:00 Test Item Value Reference Range Interpretation Comments magnesium level (test code = 2.1 mg/dL 1.6-2.6 magnesium level) [facility] HospitalCreatine kinase [Enzymatic activity/volume] in Serum or [id number] 11:30:00 Test Item Value Reference Range Interpretation Comments creatine kinase (test code = creatine 49 U/L 20-180 kinase) [facility] HospitalPT/[id number] 11:30:00 Test Item Value Reference Range Interpretation Comments prothrombin time (test code = 9.9 seconds 10.3-12.3 L prothrombin time) INR in Blood by Coagulation assay 0.92 (test code = 01938-2) [facility] HospitalPT and aPTT panel - Platelet poor plasma by Coagulation [id number] 11:30:00 Test Item Value Reference Range Interpretation Comments INR in Blood by Coagulation 27.1 seconds 22.5-37.0 assay (test code = 15877-0) [facility] HospitalUrinalysis complete W Reflex Culture panel - Urine 2020-05-04 11:30:00 Test Item Value Reference Range Interpretation Comments Color of Urine by Auto (test dark yellow code = 17683-0) Appearance of Urine (test code clear clear = 5767-9) Glucose [Presence] in Urine by negative negative Automated test strip (test code = 27853-1) Bilirubin.total [Mass/volume] negative negative in Urine (test code = 1977-6) Ketones [Mass/volume] in Urine negative negative by Automated test strip (test code = 20165-0) Specific gravity of Urine by 1.025 1.003-1.030 Automated test strip (test code = 88615-8) blood urine (test code = blood negative negative urine) pH of Urine (test code = 7.500 5-9 2756-5) protein urine (UA) (test code = trace negative protein urine (UA)) Urobilinogen [Presence] in =2.0 0.2-1.0 H Urine (test code = 90266-5) Nitrite [Presence] in Urine by negative negative Test strip (test code = 5802-4) Leukocyte esterase [Presence] negative negative in Urine by Automated test strip (test code = 97059-1) Erythrocytes [#/volume] in =1-5 0-5 Urine by Automated count (test code = 798-9) Leukocytes [#/area] in Urine <1 0-5 sediment by Automated count (test code = 53521-0) Epithelial cells [Presence] in =6-10 0-5 Urine sediment by Light microscopy (test code = 26167-0) Bacteria identified in Urine by none detected none detect Culture (test code = 630-4) Casts [#/area] in Urine =2-5 none detect sediment by Automated count (test code = 16491-5) urine culture added? (test code no = urine culture added?) [facility] HospitalThyrotropin [Units/volume] in Serum or [id number] 11:30:00 Test Item Value Reference Range Interpretation Comments Thyrotropin [Units/volume] in 4.22 uIU/mL 0.36-3.74 H Serum or Plasma (test code = 3016-3) [facility] HospitalThyroxine (T4) free [Mass/volume] in Serum or Plasma 2020-05-04 11:30:00 Test Item Value Reference Range Interpretation Comments free T4 (test code = free T4) 1.27 NG/dL 0.93-1.7 [facility] HospitalTriiodothyronine (T3) Free [Mass/volume] in Serum or [id number] 11:30:00 Test Item Value Reference Range Interpretation Comments free T3 (test code = free T3) 2.89 pg/mL 2.0-4.4 [facility] W Auto Differential panel - [id number] 11:30:00 Test Item Value Reference Range Interpretation Comments white blood count (test code = 5.9 K/uL 4.0-11.5 white blood count) red blood count (test code = red 4.02 M/uL 3.80-5.20 blood count) hemoglobin (test code = 12.8 g/dL 10.5-15.7 hemoglobin) hematocrit (test code = 40.4 % 34.0-50.0 hematocrit) MCV [Entitic volume] (test code = 100.5 fL 86-100 H 74480-9) mean corpuscular hemoglobin (test 31.8 pg 26.2-33.4 [...] 44.4-80.1 leukocytes in Blood (test code = 71188-8) Immature granulocytes [#/volume] 0.0 K/uL 0.0-0.03 in Blood (test code = 15723-2) lymphocyte% (test code = 35.9 % 10.0-50.0 lymphocyte%) mono % (test code = mono %) 4.7 % 3.6-12.0 eos % (test code = eos %) 2.2 % 0.0-5.4 Basophils/100 leukocytes in 0.5 % 0.1-1.2 Unspecified specimen (test code = 90628-2) Band form neutrophils [#/volume] 3.35 K/uL 1.56-6.13 in Blood (test code = 48810-4) Lymphocytes [#/volume] in 2.1 K/uL 1.18-3.74 Unspecified specimen by Automated count (test code = 01252-0) mono # (test code = mono #) 0.28 K/uL 0.24-0.86 eos # (test code = eos #) 0.13 K/uL 0.04-0.36 basophil # (test code = basophil 0.03 K/uL 0.01-0.08 #) NRBC% (test code = NRBC%) 0 /100 WBC 0-0.2 NRBC# (test code = NRBC#) 0 K/uL [facility] HospitalDifferential panel, method unspecified - [id number] 11:30:00NeutrophilsBandLymphocyteAtypical LymphMonocyteEosinophilBasophilMetamyelocyteAbs Neutrophil Count (Man)Abs Lymph Count (Man)Abs Monocyte Count (Man)Abs Eosinophil Count (Man)Abs Basophil Count (Man)Platelet EstimateMataSinging River GulfportUrinalysis macro (dipstick) panel - [id number] 14:27:39 Test Item Value Reference Range Interpretation Comments Leukocytes (test code = Leukocytes) Negative Nitrite (test code = Nitrite) negative Urobilinogen (test code = .2 Urobilinogen) Protein (test code = Protein) Negative pH (test code = pH) 7.0 Blood (test code = Blood) Negative Specific Woodward (test code = 1.010 Specific [place]) Ketone (test code = Ketone) Negative Bilirubin (test code = Bilirubin) Negative Glucose (test code = Glucose) Negative Appearance (test code = Appearance) Clear Color (test code = Color) Yellow [facility] HospitalBacteria identified in Urine by [id number] 00:00:00 Test Item Value Reference Range Interpretation Comments Bacteria identified in Urine by comment Culture (test code = 630-4) [facility] HospitalFollitropin [Units/volume] in Serum or [id number] 00:00:00 Test Item Value Reference Range Interpretation Comments Follitropin [Units/volume] in 0.5 mIU/mL Serum or Plasma (test code = 78549-7) [facility] HospitalEstradiol (E2) [Mass/volume] in Serum or [id number] 00:00:00 Test Item Value Reference Range Interpretation Comments Estradiol (E2) [Mass/volume] in 47.3 pg/mL Serum or Plasma (test code = 2243-4) [facility] HospitalUrinalysis macro (dipstick) panel - [id number] 13:53:54 Test Item Value Reference Range Interpretation Comments Leukocytes (test code = Leukocytes) Negative Nitrite (test code = Nitrite) positive Urobilinogen (test code = .2 Urobilinogen) Protein (test code = Protein) Negative pH (test code = pH) 6.5 Blood (test code = Blood) Negative Specific [place] (test code = 1.020 Specific [place]) Ketone (test code = Ketone) Negative Bilirubin (test code = Bilirubin) Negative Glucose (test code = Glucose) Negative Appearance (test code = Appearance) Clear Color (test code = Color) Yellow [facility] macro (dipstick) panel - [id number] 13:53:54 Test Item Value Reference Range Interpretation Comments Leukocytes (test code = Leukocytes) Negative Nitrite (test code = Nitrite) positive Urobilinogen (test code = .2 Urobilinogen) Protein (test code = Protein) Negative pH (test code = pH) 6.5 Blood (test code = Blood) Negative Specific Woodward (test code = 1.020 Specific Woodward) Ketone (test code = Ketone) Negative Bilirubin (test code = Bilirubin) Negative Glucose (test code = Glucose) Negative Appearance (test code = Appearance) Clear Color (test code = Color) Yellow [facility] HospitalTISSUE [id number] 12:49:00Surgical Pathology Report Case: [id number] Aut horizing Provider: April Mock MD Collected: 01/09/2020 02:19 PM Ordering Location: [facility] Received: 01/09/2020 04:37 PM SERVICES Pathologist: Flavia Lazar MD Specimens: A) - Biopsy, Terminal Ileum, terminal ileum bx B) -Colon Biopsy, Random, random colonic bx A. SMALL BOWEL, TERMINAL ILEUM, BIOPSIES: - CHRONIC ACTIVE ILEITISB. COLON, RANDOM BIOPSIES: - REACTIVE CHANGENZK/pl Signing Pathologist Direct Phone Line: [phone] signed by Flavia Lazar MD on 01/13/2020 at 12:49 [id number] and postoperative diagnoses: Crohn's disease of both [...] random" are five pieces of rodriguez-pink soft tissue ranging in size from 0.2 x 0.2 x 0.1 cm to 0.4 x 0.3 x 0.2 cm. The specimen is submitted in toto in cassette B1. AA/Bia. Terminal ileal mucosa is reactive with increased Paneth cells and neutrophilic infiltration of glands. No CMV, dysplasia or carcinoma is seen.B. No distortion of architecture,cryptitis, crypt abscess, microscopic colitis, dysplasia or malignancy is seen.[facility] blood [id number] 01:29:00 Test Item Value Reference Range Interpretation Comments [facility] blood collection sent to [facility] (test code = [facility] blood collection) [facility] macro (dipstick) panel - [id number] 15:18:00 Test Item Value Reference Range Interpretation Comments Leukocytes (test code = Negative Leukocytes) Nitrite (test code = Nitrite) negative Urobilinogen (test code = 1 Urobilinogen) Protein (test code = Protein) Trace pH (test code = pH) 6.0 Blood (test code = Blood) Negative Specific Woodward (test code = 1.030 Specific Woodward) Ketone (test code = Ketone) Negative Bilirubin (test code = Bilirubin) Small Glucose (test code = Glucose) Negative Appearance (test code = Clear Appearance) Color (test code = Color) Dark Yellow [facility] HospitalUrinal[facility] macro (dipstick) panel - [id number] 15:18:00 Test Item Value Reference Range Interpretation Comments Leukocytes (test code = Negative Leukocytes) Nitrite (test code = Nitrite) negative Urobilinogen (test code = 1 Urobilinogen) Protein (test code = Protein) Trace pH (test code = pH) 6.0 Blood (test code = Blood) Negative Specific Woodward (test code = 1.030 Specific Woodward) Ketone (test code = Ketone) Negative Bilirubin [...] Plasma (test code = 6768-6) [facility] HospitalCom[facility] 2000 panel - [...] Serum or Plasma (test code = 6768-6) [facility] blood [id number] 10:15:00 Test Item Value Reference Range Interpretation Comments [facility] ([facility] code = [facility] blood collection) [facility] blood [id number] 10:15:00 Test Item Value Reference Range Interpretation Comments [facility] ([facility] code = [facility] blood [facility]) [facility] HospitalUrinalysis macro (dipstick) panel - [id number] 14:31:00 Test Item Value Reference Range Interpretation Comments Leukocytes (test code = Leukocytes) Negative Nitrite (test code = Nitrite) negative Urobilinogen (test code = .2 Urobilinogen) Protein (test code = Protein) Negative pH (test code = pH) 6.5 Blood (test code = Blood) Negative Specific Woodward (test code = 1.025 Specific Woodward) Ketone (test code = Ketone) Negative Bilirubin (test code = Bilirubin) Negative Glucose (test code = Glucose) Negative Appearance (test code = Appearance) Cloudy Color (test code = Color) Yellow [facility] HospitalUrinalysis macro (dipstick) panel - [id number] 14:31:00 Test Item Value Reference Range Interpretation Comments Leukocytes (test code = Leukocytes) Negative Nitrite (test code = Nitrite) negative Urobilinogen (test code = .2 Urobilinogen) Protein (test code = Protein) Negative pH (test code = pH) 6.5 Blood (test code = Blood) Negative Specific Woodward (test code = 1.025 Specific Woodward) Ketone (test code = Ketone) Negative Bilirubin (test code = Bilirubin) Negative Glucose (test code = Glucose) Negative Appearance (test code = Appearance) Cloudy Color (test code = Color) Yellow [facility] HospitalCT, [id number] 10:26:00ENTEROGRAPHYFINAL REPORT CT of the abdomen and [...] hepatic steatosis. Status post hysterectomy. Signed: Chelsey Billingsort Verified Date/Time: 06/19/2019 10:26:36 Reading Location: [address] Ortho Consult Reading Room quest [id number] 10:45:00 Test Item Value Reference Range Interpretation Comments quest collection (test code = quest quest collection) [facility] HospitalCandida sp DNA [Presence] in Vaginal fluid by Probe and target amplification [id number] 00:00:00 Test Item Value Reference Range Interpretation [...] [facility] HospitalUrinalysis macro (dipstick) panel - [id number] 13:42:54 Test Item Value Reference Range Interpretation Comments Leukocytes (test code = Leukocytes) Negative Nitrite (test code = Nitrite) negative Urobilinogen (test code = .2 Urobilinogen) Protein (test code = Protein) Negative pH (test code = pH) 7.0 Blood (test code = Blood) Negative Specific Woodward (test code = 1.015 Specific Woodward) Ketone (test code = Ketone) Trace Bilirubin (test code = Bilirubin) Small Glucose (test code = Glucose) Negative Appearance (test code = Appearance) Clear Color (test code = Color) Yellow [facility] ([facility]stick[facility] panel - [id number] 13:42:54 Test Item Value Reference Range Interpretation Comments Leukocytes (test code = Leukocytes) Negative Nitrite (test code = Nitrite) negative Urobilinogen (test code = .2 Urobilinogen) Protein (test code = Protein) Negative pH (test code = pH) 7.0 Blood (test code = Blood) Negative Specific Woodward (test code = 1.015 Specific Woodward) Ketone (test code = Ketone) Trace Bilirubin (test code = Bilirubin) Small Glucose (test code = Glucose) Negative Appearance (test code = Appearance) Clear Color (test code = Color) Yellow [facility] HospitalUrinalysis macro (dipstick) panel - [id number] 10:18:17 Test Item Value Reference Range Interpretation Comments Leukocytes (test code = Leukocytes) Negative Nitrite (test code = Nitrite) negative Urobilinogen (test code = .2 Urobilinogen) Protein (test code = Protein) Negative pH (test code = pH) 6.5 Blood (test code = Blood) Negative Specific Woodward (test code = 1.010 Specific Woodward) Ketone (test code = Ketone) Negative Bilirubin (test code = Bilirubin) Negative Glucose (test code = Glucose) Negative Appearance (test code = Appearance) Clear Color (test code = Color) Yellow [facility] HospitalUrinalysis macro (dipstick) panel - [id number] 10:18:17 Test Item Value Reference Range Interpretation Comments Leukocytes (test code = Leukocytes) Negative Nitrite (test code = Nitrite) negative Urobilinogen (test code = .2 Urobilinogen) Protein (test code = Protein) Negative pH (test code = pH) 6.5 Blood (test code = Blood) Negative Specific Woodward (test code = 1.010 Specific Woodward) Ketone (test code = Ketone) Negative Bilirubin (test code = Bilirubin) Negative Glucose (test code = Glucose) Negative Appearance (test code = Appearance) Clear Color (test code = Color) Yellow [facility] HospitalUrinalysis macro (dipstick) panel - [id number] 10:18:17 Test Item Value Reference Range Interpretation Comments Leukocytes (test code = Leukocytes) Negative Nitrite (test code = Nitrite) negative Urobilinogen (test code = .2 Urobilinogen) Protein (test code = Protein) Negative pH (test code = pH) 6.5 Blood (test code = Blood) Negative Specific Woodward (test code = 1.010 Specific Woodward) Ketone (test code = Ketone) Negative Bilirubin (test code = Bilirubin) Negative Glucose (test code = Glucose) Negative Appearance (test code = Appearance) Clear Color (test code = Color) Yellow [facility] HospitalUrinalysis macro (dipstick) panel - [id number] 10:04:32 Test Item Value Reference Range Interpretation Comments Leukocytes (test code = Leukocytes) Negative Nitrite (test code = Nitrite) negative Urobilinogen (test code = .2 Urobilinogen) Protein (test code = Protein) Negative pH (test code = pH) 6.5 Blood (test code = Blood) Negative Specific Woodward (test code = 1.010 Specific Woodward) Ketone (test code = Ketone) Negative Bilirubin (test code = Bilirubin) Negative Glucose (test code = Glucose) Negative Appearance (test code = Appearance) Clear Color (test code = Color) Yellow [facility] HospitalUrinalysis macro (dipstick) panel - [id number] 10:04:32 Test Item Value Reference Range Interpretation Comments Leukocytes (test code = Leukocytes) Negative Nitrite (test code = Nitrite) negative Urobilinogen (test code = .2 Urobilinogen) Protein (test code = Protein) Negative pH (test code = pH) 6.5 Blood (test code = Blood) Negative Specific Woodward (test code = 1.010 Specific Woodward) Ketone (test code = Ketone) Negative Bilirubin (test code = Bilirubin) Negative Glucose (test code = Glucose) Negative Appearance (test code = Appearance) Clear Color (test code = Color) Yellow [facility] HospitalUrinalysis macro (dipstick) panel - [id number] 10:04:32 Test Item Value Reference Range Interpretation Comments Leukocytes (test code = Leukocytes) Negative Nitrite (test code = Nitrite) negative Urobilinogen (test code = .2 Urobilinogen) Protein (test code = Protein) Negative pH (test code = pH) 6.5 Blood (test code = Blood) Negative Specific Woodward (test code = 1.010 Specific Woodward) Ketone (test code = Ketone) Negative Bilirubin (test code = Bilirubin) Negative Glucose (test code = Glucose) Negative Appearance (test code = Appearance) Clear Color (test code = Color) Yellow [facility] HospitalBacteria identified in Urine by [id number] 00:00:00Bacteria Ur [facility], [id number] 00:00:00 Test Item Value Reference Range Interpretation [...] Minimum inhibitory concentration (VIVIENNE) (test code = 56087-8) Piperacillin+Tazobactam <16 [Susceptibility] by Minimum inhibitory concentration [...] <2 inhibitory concentration (VIVIENNE) (test code = 48758-0) Aztreonam [Susceptibility] by Minimum <8 inhibitory concentration (VIVIENNE) (test code = 44-8) Cefuroxime [Susceptibility] by Minimum <4 inhibitory concentration (VIVIENNE) (test code = 03514-3) Meropenem [Susceptibility] by Minimum <4 inhibitory concentration (VIVIENNE) (test code = 6652-2) [facility] HospitalBacteria identified in Urine by [id number] 00:00:00Bacteria Ur [facility]antib[facility], [id number] 00:00:00 Test Item Value Reference Range Interpretation [...] Minimum inhibitory concentration (VIVIENNE) (test code = 91548-1) Piperacillin+Tazobactam <16 [Susceptibility] by Minimum inhibitory concentration [...] <2 inhibitory concentration (VIVIENNE) (test code = 74978-8) Aztreonam [Susceptibility] by Minimum <8 inhibitory concentration (VIVIENNE) (test code = 44-8) Cefuroxime [Susceptibility] by Minimum <4 inhibitory concentration (VIVIENNE) (test code = 35603-1) Meropenem [Susceptibility] by Minimum <4 inhibitory concentration (VIVIENNE) (test code = 6652-2) [facility] GroupMicroscopic observation [Identifier] in Cervix by Cyto stain.thin [id number] 00:00:00 Test Item Value Reference Range Interpretation Comments Human papilloma virus positive 16+18+31+33+35+39+45+51+52+56+58+59+ 68 DNA [Presence] in Cervix by Probe and signal amplification method (test code = 41210-6) results (test code = results) [facility] GroupBacteria identified in Urine by [id number] 02:14:00 Test Item Value Reference Range Interpretation Comments Bacteria identified in no growth at 48 hrs. Urine by Culture (test code = 630-4) [facility] GroupBacteria identified in Urine by [id number] 02:14:00 Test Item Value Reference Range Interpretation Comments Bacteria identified in no growth at 48 hrs. Urine by Culture (test code = 630-4) [facility] [id number] 08:01:00 Test Item Value Reference Range Interpretation Comments MAGNESIUM (BEAKER) 1.8 mg/dL 1.6-2.6 Specimen moderately (test code = 627) hemolyzed BASIC METABOLIC [id number] 08:01:00 Test Item Value Reference Range Interpretation [...] 697) EGFR (BEAKER) (test 88 mL/min/1.73 ESTIMA FRANCINE GFR IS code = 1092) sq m NOT ACCURATE CREATININE CLEARANCE IN PREDICTING GLOMERULAR FILTRATION RATE . ESTIMATED GFR I S NOT APPLICABLE FOR DIALYSIS PATIEN TS. CBC W/PLT COUNT & AUTO [id number] 05:59:00 Test Item Value Reference Range Interpretation [...] 0-1 PERCENT (BEAKER) (test code = 2801) [id number] 07:04:00 Test Item Value Reference Range Interpretation Comments MAGNESIUM (BEAKER) (test code = 1.8 mg/dL 1.6-2.6 627) BASIC METABOLIC [id number] 07:04:00 Test Item Value Reference Range Interpretation [...] 697) EGFR (BEAKER) (test 82 mL/min/1.73 ESTIMA FRANCINE GFR IS code = 1092) sq m NOT ACCURATE CREATININE CLEARANCE IN PREDICTING GLOMERULAR FILTRATION RATE . ESTIMATED GFR I S NOT APPLICABLE FOR DIALYSIS PATIEN TS. CORTISOL,60 [id number] 07:01:00 Test Item Value Reference Range Interpretation [...] after cosyntropin administration.CBC W/PLT COUNT & AUTO [id number] 05:46:00 Test Item Value Reference Range Interpretation [...] 0-1 PERCENT (BEAKER) (test code = 2801) CORTISOL,[id number] 19:10:00 Test Item Value Reference Range Interpretation [...] = 1.8 mg/dL 1.6-2.6 627) BASIC METABOLIC [id number] 14:23:00 Test Item Value Reference Range Interpretation [...] 697) EGFR (BEAKER) (test 75 mL/min/1.73 ESTIMA FRANCINE GFR IS code = 1092) sq m NOT ACCURATE CREATININE CLEARANCE IN PREDICTING GLOMERULAR FILTRATION RATE . ESTIMATED GFR I S NOT APPLICABLE FOR DIALYSIS PATIEN TS. CBC W/PLT COUNT & AUTO [id number] 14:01:00 Test Item Value Reference Range Interpretation [...] % 0-1 PERCENT (BEAKER) (test code = 2807) OVA AND PARASITE [id number] 12:03:00 Test Item Value Reference Range Interpretation [...] (BEAKER) (test seen seen code = 248) [id number] 05:30:00 Test Item Value Reference Range Interpretation Comments MAGNESIUM (BEAKER) (test code = 1.9 mg/dL 1.6-2.6 627) BASIC METABOLIC [id number] 05:30:00 Test Item Value Reference Range Interpretation [...] 697) EGFR (BEAKER) (test 90 mL/min/1.73 ESTIMA FRANCINE GFR IS code = 1092) sq m NOT ACCURATE CREATININE CLEARANCE IN PREDICTING GLOMERULAR FILTRATION RATE . ESTIMATED GFR I S NOT APPLICABLE FOR DIALYSIS PATIEN TS. CBC W/PLT COUNT & AUTO [id number] 04:58:00 Test Item Value Reference Range Interpretation [...] PERCENT (BEAKER) (test code = 2801) TISSUE [id number] 15:51:00Surgical Pathology Report Case: [id number] Authorizing Provider: Bartolo Quinn Collected: 11/10/2018 1543 Ordering Location: [address] Received: 11/12/2018 0813 Service Pathologist: Linda [...] CRYPT DISTORTION Signing Pathologist Direct Phone Line: [phone] signed by Linda Mullen MD on 11/12/2018 at 3:51 PMPatient's history of Crohn's disease is noted. The current sampling shows no significant active or chronic colitis. This may represent complete histologic resolution following treatment. Clinical and endoscopic correlation is recommended.[id number] and postop diagnosis: diarrhea A. Neoterminal ileum [...] in E1. CG/pl Performed.STOOL CULTURE + SHIGA [id number] 08:26:00 Test Item Value Reference Range Interpretation Comments CULTURE (BEAKER) No Salmonella, Shigella (test code = 1095) or Campylobacter isolated GI PATHOGEN PROFILE BY [id number] 08:20:00 Test Item Value Reference Range Interpretation Comments CAMPYLOBACTER (PCR) (test code = Not detected Not detected 20151103) PLESIOMONAS SHIGELLOIDES (PCR) Not detected Not detected (test code = 20151107) SALMONELLA (PCR) (test code = Not detected Not detected ) YERSINIA ENTEROCOLITICA (PCR) Not detected Not detected (test code = 20151130) VIBRIO CHOLERAE (PCR) (test code Not detected Not detected = 0483156) ENTEROAGGREGATIVE E. COLI (EAEC) Not detected Not detected BY PCR (test code = 9387277) ENTEROPATHOGENIC E. COLI (EPEC) Not detected Not detected BY PCR (test code = 5654818) ENTEROTOXIGENIC E. COLI (ETEC) Not detected Not detected LT/ST BY PCR (test code = 0206451) SHIGA-LIKE TOXIN-PRODUCING E. Not detected Not detected COLI (STEC) STX1/STX2 (test code = 6321788) E. COLI O157 (PCR) (test code = Not detected 0737994) SHIGELLA/ENTEROINVASIVE E. COLI Not detected Not detected (EIEC) BY PCR (test code = 0829694) CRYPTOSPORIDIUM (PCR) (test code Not detected Not detected = 20151208) CYCLOSPORA CAYETANENSIS (PCR) Not detected Not detected (test code = 1867300) ENTAMOEBA HISTOLYTICA (PCR) Not detected Not detected (test code = 8248231) GIARDIA LAMBLIA (PCR) (test code Not detected Not detected = 20160101) ADENOVIRUS F 40/41 (PCR) (test Not detected Not detected code = 9504884) ASTROVIRUS (PCR) (test code = Not detected Not detected 20160103) NOROVIRUS GI/GII (PCR) (test Not detected Not detected code = 1877818) ROTAVIRUS A (PCR) (test code = Not detected Not detected 20160105) SAPOVIRUS (I, II, IV, V) BY PCR Not detected Not detected (test code = 9071349) VIBRIO (PARAHAEMOLYTICUS, Not detected Not detected VULNIFICUS) (test code = 7333292) Other viruses, parasites and bacteria not targeted by this PCR panel cannot be excluded; therefore clinical correlation and follow up of serology, culture results, and other molecular studies is required. The results are not intended to be used as the sole means for clinical diagnosis or patient management decisions. This sample was tested at the [facility] using the Modabound Gastrointestinal Panel. It is FDA cleared and has been verified and approved by the [facility] for clinical use. This laboratory is CLIA-certified and College ofAmerican Pathologists (CAP)-accredited to perform high complexity testing.CORTISOL 2018-11-09 06:24:00 Test Item Value Reference Range Interpretation Comments CORTISOL, TOTAL (BEAKER) (test code = < ug/dL 3.7-19.4 L 7377) BASIC METABOLIC [id number] 05:50:00 Test Item Value Reference Range Interpretation [...] 697) EGFR (BEAKER) (test 96 mL/min/1.73 ESTIMA FRANCINE GFR IS code = 1092) sq m NOT ACCURATE CREATININE CLEARANCE IN PREDICTING GLOMERULAR FILTRATION RATE . ESTIMATED GFR I S NOT APPLICABLE FOR DIALYSIS PATIEN TS. SHIGA TOXIN [id number] 14:16:00 Test Item Value Reference Range Interpretation Comments SHIGA TOXIN 1 (BEAKER) (test Not detected Not detected code = 2177) SHIGA TOXIN 2 (BEAKER) (test Not detected Not detected code = 2179) STOOL PATH [id number] 10:08:00 Test Item Value Reference Range Interpretation Comments PATHOGEN EXAM CHARGED (BEAKER) (test Done code = 2381) TSH/FREE T4 IF [id number] 05:59:00 Test Item Value Reference Range Interpretation Comments THYROID STIMULATING HORMONE 2.84 uIU/mL 0.35-4.94 (BEAKER) (test code = 772) BASIC METABOLIC [id number] 05:38:00 Test Item Value Reference Range Interpretation [...] 697) EGFR (BEAKER) (test 93 mL/min/1.73 ESTIMA FRANCINE GFR IS code = 1092) sq m NOT ACCURATE CREATININE CLEARANCE IN PREDICTING GLOMERULAR FILTRATION RATE . ESTIMATED GFR I S NOT APPLICABLE FOR DIALYSIS PATIEN TS. RAD, ABDOMEN/KUB, 1 VIEW [id number] 14:37:00Reason for exam:->post-obstructive diarrheaShould this be performed [...] MDReport Verified Date/Time: 11/07/2018 14:37:57 Reading Location: [address] Consult Reading Room CT, [id number] 14:25:00FINAL REPORT TECHNIQUE: CT of the abdomen [...] obtained for definitive characterization. Signed: Cj Lowery [facility]ep[facility] Verified Date/Time: 11/07/2018 14:25:25 Reading Location: [facility] C013Y CT Body Reading Room CBC W/PLT COUNT & AUTO [id number] 13:14:00 Test Item Value Reference Range Interpretation [...] comment: User comments: Slide comments:C. DIFFICILE GDH [id number] 12:53:00 Test Item Value Reference Range Interpretation Comments CDT TOXIN (test code Negative Negative = 6574299214) CDT GDH ANTIGEN (test Negative Negative No ind ication of code = 9980548494) Clostridi um difficile infection and n o colonization. Discontinue ent kaveh isolation and t herapy. Testing performed by [employer] Rapid Cassette Assay. For GDH, published sensitivity of the assay is 98.7% compared to cytotoxicity testing. For Toxin AB, published sensitivity is 87.8% and specificity 99.4% compared to cytotoxicity testing.Verification of kit performance was done by the [facility] prior to clinical use.C-REACTIVE [id number] 06:53:00 Test Item Value Reference Range Interpretation Comments C-REACTIVE PROTEIN (BEAKER) (test 0.37 mg/dL 0.00-0.50 code = 676) BASIC METABOLIC [id number] 06:41:00 Test Item Value Reference Range Interpretation [...] 697) EGFR (BEAKER) (test 74 mL/min/1.73 ESTIMA FRANCINE GFR IS code = 1092) sq m NOT ACCURATE CREATININE CLEARANCE IN PREDICTING GLOMERULAR FILTRATION RATE . ESTIMATED GFR I S NOT APPLICABLE FOR DIALYSIS PATIEN TS. CT, [id number] 09:48:00FINAL REPORT CT Abdomen And Pelvis with [...] recommended to confirm stability. Signed: Yany Henriquez Verified Date/Time: 09/20/2018 09:48:51 RAD, BONE DENSITY [id number] 13:22:00Reason for Exam:- >crohn's disease of both [...] for bone mineral density as provided by electric distribution checker is 0.023 g/cm2 for lumbar spine and [...] next bone mineral density study. Signed: Art Bermeoort Verified Date/Time: 09/04/2018 13:22:29 [id number] 07:02:00 Test Item Value Reference Range Interpretation Comments PHOSPHORUS (BEAKER) (test code = 2.9 mg/dL 2.3-4.7 604) [id number] 07:02:00 Test Item Value Reference Range Interpretation Comments MAGNESIUM (BEAKER) (test code = 1.9 mg/dL 1.6-2.6 627) BASIC METABOLIC [id number] 07:02:00 Test Item Value Reference Range Interpretation [...] 697) EGFR (BEAKER) (test 93 mL/min/1.73 ESTIMA FRANCINE GFR IS code = 1092) sq m [...] 0-0 (BEAKER) (test code = 413) TISSUE [id number] 13:47:00Surgical Pathology Report Case: [id number] Authorizing Provider: Jani Alejandro MD Collected: 08/20/2018 1003 Ordering Location: [facility] Received: 08/20/2018 1118 SERVICES Pathologist: Linda Mullen MD Specimen: Large Intestine, Colon - Right/Ascending, RIGHT COLON AND SMALL BOWEL A. COLON, RIGHT/ASCENDING, RIGHT HEMICOLECTOMY: - CHRONIC ACTIVE ENTERITIS COMPATIBLE WITH CROHN'S DISEASE (SEE COMMENT) - NEGATIVE FOR GRANULOMAS (OR) VIRAL CYTOPATHIC CHANGES - NEGATIVE FOR DYSPLASIA (OR) MALIGNANCY - MARGINS, UNREMARKABLE Signing Pathologist Direct Phone Line: [phone] signed by Linda Mullen MD on 08/22/2018 at 1:47 PMP[facility] patient's history of Crohn's disease s/p ileocecal [...] viral cytopathic changes are seen.IDC: Dr. Leslie allen.99580Kagvt's disease of small intestine without complication Right [...] folding and no masses or lesions identified. [employer] Operator sections are submitted in 10 cassettes as follows.Ink code: Blue-one marginBlack-margin closest to anastomotic siteSection code: A1 - parts representative sections of both margins, differentially inked per the ink code A2-A5 - entire sections of ulcerative areaA6 - entire sections of hemorrhagic mucosal areaA7-A10 - parts representative sections of mucosaFR/ewPerformed.[id number] 06:10:00 Test Item Value Reference Range Interpretation Comments PHOSPHORUS (BEAKER) (test code = 2.3 mg/dL 2.3-4.7 604) [id number] 06:10:00 Test Item Value Reference Range Interpretation Comments MAGNESIUM (BEAKER) (test code = 1.7 mg/dL 1.6-2.6 627) BASIC METABOLIC [id number] 06:10:00 Test Item Value Reference Range Interpretation [...] 697) EGFR (BEAKER) (test 86 mL/min/1.73 ESTIMA FRANCINE GFR IS code = 1092) sq m [...] WBC 0-0 (BEAKER) (test code = 413) [id number] 03:34:00 Test Item Value Reference Range Interpretation Comments PHOSPHORUS (BEAKER) (test code = 2.5 mg/dL 2.3-4.7 604) [id number] 03:34:00 Test Item Value Reference Range Interpretation Comments MAGNESIUM (BEAKER) (test code = 1.9 mg/dL 1.6-2.6 627) BASIC METABOLIC [id number] 03:34:00 Test Item Value Reference Range Interpretation [...] 697) EGFR (BEAKER) (test 95 mL/min/1.73 ESTIMA FRANCINE GFR IS code = 1092) sq m [...] CELL DISTRIBUTION WIDTH 14.9 % 11.7-14.4 H (BEAKER) (test code = 412) PLATELET COUNT (BEAKER) (test 204 K/CU MM 150-450 code = 756) MEAN PLATELET VOLUME (BEAKER) 8.5 fL 9.4-12.3 L (test code = 754) NUCLEATED RED BLOOD CELLS 0 /100 WBC 0-0 (BEAKER) (test code = 413) POCT-GLUCOSE [id number] 11:42:00 Test Item Value Reference Range Interpretation Comments POC-GLUCOSE METER 129 mg/dL 70-110 H TESTED AT [facility] [address] ([facility]) (test code = RYNE [place] 1538) [address] POCT-GLUCOSE [id number] 06:28:00 Test Item Value Reference Range Interpretation Comments POC-GLUCOSE METER 102 mg/dL 70-110 TESTED AT [facility] [address] ([facility]) (test code = RYNE Barnes [facility] 1538) [address] CT, [id number] 15:41:00FINAL REPORT CT abdomen and pelvis with [...] [facility] Reading Room - [place] [address] STOOL CULTURE + SHIGA [id number] 15:37:00 Test Item Value Reference Range Interpretation Comments CULTURE ([facility]) No Salmonella, Shigella (test code = 1095) or Campylobacter isolated POCT-GLUCOSE [id number] 08:25:00 Test Item Value Reference Range Interpretation Comments POC-GLUCOSE METER 197 mg/dL 70-110 H TESTED AT [facility] [address] (BEAKER) (test code = [place] 1538) [address] [id number] 05:59:00 Test Item Value Reference Range Interpretation Comments PHOSPHORUS (BEAKER) (test code = 3.6 mg/dL 2.3-4.7 604) [id number] 05:59:00 Test Item Value Reference Range Interpretation Comments MAGNESIUM (BEAKER) (test code = 2.3 mg/dL 1.6-2.6 627) BASIC METABOLIC [id number] 05:59:00 Test Item Value Reference Range Interpretation [...] 697) EGFR (BEAKER) (test 84 mL/min/1.73 ESTIMA FRANCINE GFR IS code = 1092) sq m NOT ACCURATE CREATININE CLEARANCE IN PREDICTING GLOMERULAR FILTRATION RATE . ESTIMATED GFR I S NOT APPLICABLE FOR DIALYSIS PATIEN TS. HEPATIC FUNCTION [id number] 05:59:00 Test Item Value Reference Range Interpretation Comments TOTAL PROTEIN (BEAKER) (test code = 6.3 gm/dL 6.0-8.3 770) ALBUMIN (BEAKER) (test code = 1145) 3.9 g/dL 3.5-5.0 BILIRUBIN TOTAL (BEAKER) (test code 0.3 mg/dL 0.2-1.2 = 377) BILIRUBIN DIRECT (BEAKER) (test 0.1 mg/dL 0.1-0.5 code = 706) ALKALINE PHOSPHATASE (BEAKER) (test 68 U/L 40-150 code = 346) AST (SGOT) ([facility]) (test code = 23 U/L 5-34 353) ALT (SGPT) ([facility]) (test code = 41 U/L 6-55 347) POCT-GLUCOSE [id number] 21:05:00 Test Item Value Reference Range Interpretation Comments POC-GLUCOSE METER 148 mg/dL 70-110 H TESTED AT [place] [address] ([facility]) (test code = [facility] [place] Molly [facility] 1538) [address] C. DIFFICILE GDH [id number] 15:59:00 Test Item Value Reference Range Interpretation Comments CDT TOXIN (test code Negative Negative = 1729867881) CDT GDH ANTIGEN (test Negative Negative No ind ication of code = [id number]) Clostridi um difficile infection and n o colonization. Discontinue ent kaveh isolation and t herapy. Testing performed by [facility] [employer] [facility] Rapid Cassette Assay. For GDH, published sensitivity of the assay is 98.7% compared to cytotoxicity testing. For Toxin AB, published sensitivity is 87.8% and specificity 99.4% compared to cytotoxicity testing.Verification of kit performance was done by the [facility] Microbiology Lab prior to clinical use.SHIGA TOXIN [id number] 14:22:00 Test Item Value Reference Range Interpretation Comments SHIGA TOXIN 1 ([facility]) (test Not detected Not detected code = 2177) SHIGA TOXIN 2 ([facility]) (test Not detected Not detected code = 2179) POCT-GLUCOSE [id number] 13:13:00 Test Item Value Reference Range Interpretation Comments POC-GLUCOSE METER 119 mg/dL 70-110 H TESTED AT [place] [address] ([facility]) (test code = RYNE Barnes [place] 1538) [address] STOOL PATH [id number] 10:03:00 Test Item Value Reference Range Interpretation Comments PATHOGEN EXAM CHARGED ([facility]) (test Done code = 2381) POCT-GLUCOSE [id number] 09:13:00 Test Item Value Reference Range Interpretation Comments POC-GLUCOSE METER 111 mg/dL 70-110 H TESTED AT [place] [address] ([facility]) (test code = RYNE [place] 1538) [address] [id number] 06:09:00 Test Item Value Reference Range Interpretation Comments PREALBUMIN (BEAKER) (test code = 36 mg/dL 14-45 586) CBC W/PLT COUNT & AUTO [id number] 06:02:00 Test Item Value Reference Range Interpretation [...] 0-1 PERCENT (BEAKER) (test code = 2801) [id number] 05:52:00 Test Item Value Reference Range Interpretation Comments PHOSPHORUS (BEAKER) (test code = 4.0 mg/dL 2.3-4.7 604) [id number] 05:52:00 Test Item Value Reference Range Interpretation Comments MAGNESIUM (BEAKER) (test code = 2.3 mg/dL 1.6-2.6 627) BASIC METABOLIC [id number] 05:52:00 Test Item Value Reference Range Interpretation [...] 697) EGFR (BEAKER) (test 80 mL/min/1.73 ESTIMA FRANCINE GFR IS code = 1092) sq m NOT ACCURATE CREATININE CLEARANCE IN PREDICTING GLOMERULAR FILTRATION RATE . ESTIMATED GFR I S NOT APPLICABLE FOR DIALYSIS PATIEN TS. HEPATIC FUNCTION [id number] 05:52:00 Test Item Value Reference Range Interpretation Comments TOTAL PROTEIN (BEAKER) (test code = 6.4 gm/dL 6.0-8.3 770) ALBUMIN (BEAKER) (test code = 1145) 3.9 g/dL 3.5-5.0 BILIRUBIN TOTAL (BEAKER) (test code 0.2 mg/dL 0.2-1.2 = 377) BILIRUBIN DIRECT (BEAKER) (test 0.1 mg/dL 0.1-0.5 code = 706) ALKALINE PHOSPHATASE (TRANGAKER) (test 68 U/L 40-150 code = 346) AST (SGOT) (TRANGAKER) (test code = 12 U/L 5-34 353) ALT (SGPT) (TRANGAKER) (test code = 29 U/L 6-55 347) C-REACTIVE [id number] 05:52:00 Test Item Value Reference Range Interpretation Comments C-REACTIVE PROTEIN (JESS) (test 0.22 mg/dL 0.00-0.50 code = 676) POCT-GLUCOSE [id number] 23:39:00 Test Item Value Reference Range Interpretation Comments POC-GLUCOSE METER 122 mg/dL 70-110 H TESTED AT [facility] [address] (JESS) (test code = [place]NE [place] 1538) [address] CT, [id number] 04:05:00FINAL REPORT CLINICAL HISTORY: Acute abdominal pain, [...] described findings of colitis. Signed: Denis Sow MDReport Verified Date/Time: 07/21/2018 04:05:05 Reading Location: [address] Reading Room [id number] 22:00:00 Test Item Value Reference Range Interpretation Comments LIPASE (BEAKER) (test code = 749) 12 U/L 8-78 COMPREHENSIVE METABOLIC [id number] 22:00:00 Test Item Value Reference Range Interpretation [...] 347) EGFR (BEAKER) (test 82 mL/min/1.73 ESTIMA FRANCINE GFR IS code = 1092) sq m NOT ACCURATE CREATININE CLEARANCE IN PREDICTING GLOMERULAR FILTRATION RATE . ESTIMATED GFR I S NOT APPLICABLE FOR DIALYSIS PATIEN TS. [id number] 21:55:00 Test Item Value Reference Range Interpretation Comments PARTIAL THROMBOPLASTIN TIME 24.6 seconds 22.5-36.0 (BEAKER) (test code = 760) PROTHROMBIN [id number] 21:53:00 Test Item Value Reference Range Interpretation [...] PERCENT (BEAKER) (test code = 2801) TISSUE [id number] 09:23:00Surgical Pathology Report Case: [id number] Authorizing Provider: King Huynh MD Collected: 07/11/2018 0924 Ordering Location: [address] Received: 07/11/2018 1421 Service Pathologist: Linda [...] AND COMMENT) Signing Pathologist Direct Phone Line: [phone] signed by Linda Mullen MD on 07/12/2018 at 9:23 AMPatient's history of Crohn's disease is noted per Epic note dated 07/10/18. The current sampling shows no significant active or chronic colitis. This may represent complete histologic resolution following treatment. Clinical and endoscopic correlation is recommended.[id number] abdominal pain A. Random colon biopsy. B. [...] noted. No dysplasia or carcinoma is present.BLOOD [id number] 20:01:00 Test Item Value Reference Range Interpretation Comments CULTURE (BEAKER) (test No growth in 5 days code = 1095) BLOOD [id number] 20:01:00 Test Item Value Reference Range Interpretation Comments CULTURE (BEAKER) (test No growth in 5 days code = 1095) BASIC METABOLIC [id number] 04:55:00 Test Item Value Reference Range Interpretation [...] 697) EGFR (BEAKER) (test 93 mL/min/1.73 ESTIMA FRANCINE GFR IS code = 1092) sq m NOT ACCURATE CREATININE CLEARANCE IN PREDICTING GLOMERULAR FILTRATION RATE . ESTIMATED GFR I S NOT APPLICABLE FOR DIALYSIS PATIEN TS. CBC W/PLT COUNT & AUTO [id number] 04:37:00 Test Item Value Reference Range Interpretation [...] (BEAKER) (test code = 2801) BASIC METABOLIC [id number] 06:15:00 Test Item Value Reference Range Interpretation [...] 697) EGFR (BEAKER) (test 87 mL/min/1.73 ESTIMA FRANCINE GFR IS code = 1092) sq m NOT ACCURATE CREATININE CLEARANCE IN PREDICTING GLOMERULAR FILTRATION RATE . ESTIMATED GFR I S NOT APPLICABLE FOR DIALYSIS PATIEN TS. CBC W/PLT COUNT & AUTO [id number] 06:06:00 Test Item Value Reference Range Interpretation [...] code = 2801) STOOL CULTURE + SHIGA [id number] 12:15:00 Test Item Value Reference Range Interpretation Comments CULTURE (BEAKER) No Salmonella, Shigella (test code = 1095) or Campylobacter isolated BASIC METABOLIC [id number] 07:08:00 Test Item Value Reference Range Interpretation [...] 697) EGFR (BEAKER) (test 95 mL/min/1.73 ESTIMA FRANCINE GFR IS code = 1092) sq m NOT ACCURATE CREATININE CLEARANCE IN PREDICTING GLOMERULAR FILTRATION RATE . ESTIMATED GFR I S NOT APPLICABLE FOR DIALYSIS PATIEN TS. CBC W/PLT COUNT & AUTO [id number] 06:42:00 Test Item Value Reference Range Interpretation [...] code = 2801) CT, ABDOMEN - PELVIS, [id number] 14:17:00Reason for exam:- >Evaluation of small bowel [...] lesion demonstrated. Endplate degenerative change at L1-2 aynQ67-H0 noted. There is an implanted pump in the right lower quadrant subcutaneous fat with a lead going to the thecal sac terminating at the T11 level. IMPRESSION: Evidence of acute colitis of the sigmoid colon. No small bowel enteritis demonstrated. No stricture, fistula, or intramesenteric abscess demonstrated. Signed: Ervin Johnson MDReport Verified Date/Time: 07/08/2018 14:17:31 Reading Location: [facility] C0X [facility] Consult Reading Room C METABOLIC [id number] 06:53:00 Test Item Value Reference Range Interpretation [...] 697) EGFR (BEAKER) (test 83 mL/min/1.73 ESTIMA FRANCINE GFR IS code = 1092) sq m NOT ACCURATE CREATININE CLEARANCE IN PREDICTING GLOMERULAR FILTRATION RATE . ESTIMATED GFR I S NOT APPLICABLE FOR DIALYSIS PATIEN TS. CBC W/PLT COUNT & AUTO [id number] 06:25:00 Test Item Value Reference Range Interpretation [...] (BEAKER) (test code = 2801) SHIGA TOXIN [id number] 13:53:00 Test Item Value Reference Range Interpretation Comments SHIGA TOXIN 1 (BEAKER) (test Not detected Not detected code = 2177) SHIGA TOXIN 2 (BEAKER) (test Not detected Not detected code = 2179) C. DIFFICILE GDH [id number] 13:28:00 Test Item Value Reference Range Interpretation Comments CDT TOXIN (test code Negative Negative = [id number]) CDT GDH ANTIGEN (test Negative Negative No ind ication of code = [id number]) Clostridi um difficile infection and n o [...] Microbiology Lab prior to clinical use.STOOL PATH [id number] 10:17:00 Test Item Value Reference Range Interpretation Comments PATHOGEN EXAM CHARGED (BEAKER) (test Done code = 2381) BASIC METABOLIC [id number] 05:17:00 Test Item Value Reference Range Interpretation [...] 697) EGFR (BEAKER) (test 80 mL/min/1.73 ESTIMA FRANCINE GFR IS code = 1092) sq m NOT ACCURATE CREATININE CLEARANCE IN PREDICTING GLOMERULAR FILTRATION RATE . ESTIMATED GFR I S NOT APPLICABLE FOR DIALYSIS PATIEN TS. CBC W/PLT COUNT & AUTO [id number] 04:58:00 Test Item Value Reference Range Interpretation [...] = 2801) RAD, CHEST, 1 VIEW, NON [id number] 14:21:00Reason for exam:->FeverShould this be performed at the bedside?->YesFINAL REPORT TECHNIQUE: Frontal chest radiograph dated 07/06/2018. CLINICAL HISTORY: Fever COMPARISON STUDY: None IMPRESSION:Lungs are clear. No pleural effusion or pneumothorax. Cardiomediastinal silhouette is normal in size. No pulmonary edema. No fracture. Signed: Xiao Mckinney MDReport Verified Date/Time: 07/06/2018 14:21:04 Reading Location: [facility] Radiology Reading Room D DRUG SCREEN, [id number] 12:52:00 Test Item Value Reference Range Interpretation [...] situations. Chain of custody not maintained. Some kqqd-nwc-psoyhcz medications, as well as adulterants, may cause inaccurate results. Clinical correlation should be applied. A more comprehensive drug screen or confirmation of a detected drug may be performed upon request.CBC W/PLT COUNT & AUTO [id number] 12:40:00 Test Item Value Reference Range Interpretation [...] 0-1 PERCENT (BEAKER) (test code = 2801) [id number] 12:12:00 Test Item Value Reference Range Interpretation Comments PHOSPHORUS (BEAKER) (test code = 3.0 mg/dL 2.3-4.7 604) [id number] 12:12:00 Test Item Value Reference Range Interpretation Comments MAGNESIUM (BEAKER) (test code = 2.1 mg/dL 1.6-2.6 627) BASIC METABOLIC [id number] 12:12:00 Test Item Value Reference Range Interpretation [...] 697) EGFR (BEAKER) (test 87 mL/min/1.73 ESTIMA FRANCINE GFR IS code = 1092) sq m NOT ACCURATE CREATININE CLEARANCE IN PREDICTING GLOMERULAR FILTRATION RATE . ESTIMATED GFR I S NOT APPLICABLE FOR DIALYSIS PATIEN TS. HEPATIC FUNCTION [id number] 12:12:00 Test Item Value Reference Range Interpretation [...] U/L 6-55 347) LACTIC ACID, VENOUS, WHOLE [id number] 12:08:00 Test Item Value Reference Range Interpretation Comments LACTATE BLOOD VENOUS 0.8 mmol/L 0.5-2.2 Specime n moderately (2) (BEAKER) (test hemolyzed code = 4832) URINALYSIS W/ REFLEX URINE [id number] 11:10:00 Test Item Value Reference Range Interpretation [...] = 516) SOURCE(BEAKER) (test code = 2795) URINE AND [id number] 21:40:00 Test Item Value Reference Range Interpretation Comments UA Turbidity (test code Slight *ABN*(02/18/17 = UA Turbidity) 4:40 PM) [facility] AND [id number] 21:40:00 Test Item Value Reference Range Interpretation Comments UA Spec Grav (test code = UA Spec Grav) 1.024 [facility] AND [id number] 21:40:00 Test Item Value Reference Range Interpretation Comments UA Sq Epi (test code = UA Sq Occasional /LPF Epi) [facility] AND [id number] 21:40:00 Test Item Value Reference Range Interpretation Comments UA Leuk Est (test Negative (02/18/17 4:40 code = UA Leuk Est) PM) [facility] [id number] 21:40:00 Test Item Value Reference Range Interpretation Comments eGFR (test code = eGFR) 100 [facility]2017-10-21 21:40:00 Test Item Value Reference Range Interpretation Comments Potassium Lvl (test code = Potassium 3.2 3.5-5.1 Lvl) [facility]2017-10-21 21:40:00 Test Item Value Reference Range Interpretation Comments Sodium Lvl (test code = Sodium Lvl) 145 135-145 [facility]2017-10-21 21:40:00 Test Item Value Reference Range Interpretation Comments Creatinine Lvl (test code = Creatinine 0.73 0.50-1.40 Lvl) [facility]2017-10-21 21:40:00 Test Item Value Reference Range Interpretation Comments Chloride Lvl (test code = Chloride Lvl) 108 95-109 [facility]2017-10-21 21:40:00 Test Item Value Reference Range Interpretation Comments BUN (test code = BUN) 11 7-22 [facility]2017-10-21 21:40:00 Test Item Value Reference Range Interpretation Comments Albumin Lvl (test code = Albumin Lvl) 4.0 3.5-5.0 [facility]2017-10-21 21:40:00 Test Item Value Reference Range Interpretation Comments Total Protein (test code = Total 7.2 6.4-8.4 Protein) [facility]2017-10-21 21:40:00 Test Item Value Reference Range Interpretation Comments Calcium Lvl (test code = Calcium Lvl) 8.2 8.5-10.5 [facility]2017-10-21 21:40:00 Test Item Value Reference Range Interpretation Comments ALT (test code = ALT) 21 See_Comment [Auto mated message] The system which ge nerated this result transmit francine reference range : <=65. The reference range was not used to interpr et this result as angel l/abnormal. [facility]2017-10-21 21:40:00 Test Item Value Reference Range Interpretation Comments CO2 (test code = CO2) 28 24-32 [facility]2017-10-21 21:40:00 Test Item Value Reference Range Interpretation Comments Bili Total (test code = Bili Total) 0.5 0.2-1.3 [facility]2017-10-21 21:40:00 Test Item Value Reference Range Interpretation Comments Alk Phos (test code = Alk Phos) 54 39-136 [facility]2017-10-21 21:40:00 Test Item Value Reference Range Interpretation Comments AST (test code = AST) 12 See_Comment [Auto mated message] The system which ge nerated this result transmit francine reference range : <=37. The reference range was not used to interpr et this result as angel l/abnormal. [facility]2017-10-21 21:40:00 Test Item Value Reference Range Interpretation Comments Glucose Lvl (test code = Glucose Lvl) 98 70-99 [facility]2017-10-21 21:40:00 Test Item Value Reference Range Interpretation Comments Globulin (test code = Globulin) 3.2 2.7-4.2 [facility]2017-10-21 21:40:00 Test Item Value Reference Range Interpretation Comments A/G Ratio (test code = A/G Ratio) 1.2 0.7-1.6 [facility]2017-10-21 21:40:00 Test Item Value Reference Range Interpretation Comments AGAP (test code = AGAP) 12.2 10.0-20.0 [facility]2017-10-21 21:40:00 Test Item Value Reference Range Interpretation Comments B/C Ratio (test code = B/C Ratio) 15 6-25 [facility]2017-10-21 21:40:00 Test Item Value Reference Range Interpretation Comments Lipase Lvl (test code = Lipase Lvl) 178 73-393 [id number] 21:40:00 Test Item Value Reference Range Interpretation Comments Basophils # (test code 0.0 See_Comment [Aut omated message] The = Basophils #) system which generated this result tra nsmitted reference range : <=0.2. The reference r markus was not used to int erpret this result as normal/abnormal . [facility] [id number] 21:40:00 Test Item Value Reference Range Interpretation Comments Monocytes # (test code 0.5 See_Comment [Aut omated message] The = Monocytes #) system which generated this result tra nsmitted reference range : <=0.8. The reference r markus was not used to int erpret this result as normal/abnormal . [facility] [id number] 21:40:00 Test Item Value Reference Range Interpretation Comments Eosinophils # (test code 0.2 See_Comment [A utomated message] The = Eosinophils #) system whic h generated this result tra nsmitted reference range : <=0.5. The reference r markus was not used to int erpret this result as normal/abnormal . [facility] HospitalHuqlqwqMVZRCNEMHY1202-21-71 21:40:00 Test Item Value Reference Range Interpretation Comments Segs-Bands # (test code = Segs-Bands #) 6.9 1.5-8.1 [facility] [id number] 21:40:00 Test Item Value Reference Range Interpretation Comments Lymphocytes # (test code = Lymphocytes 3.0 1.0-5.5 #) [facility] [id number] 21:40:00 Test Item Value Reference Range Interpretation Comments Basophils (test code = 0.4 See_Comment [Aut omated message] The Basophils) system which ge nerated this result tra nsmitted reference range : <=1.0. The reference r markus was not used to int erpret this result as normal/abnormal . [facility] Hos[id number] 21:40:00 Test Item Value Reference Range Interpretation Comments Lymphocytes (test code = Lymphocytes) 28.1 20.0-40.0 [facility] H[id number] 21:40:00 Test Item Value Reference Range Interpretation Comments Monocytes (test code = Monocytes) 4.9 2.0-12.0 [facility] H[id number] 21:40:00 Test Item Value Reference Range Interpretation Comments Eosinophils (test code = 1.6 See_Comment [A utomated message] The Eosinophils) system which ge nerated this result tra nsmitted reference range : <=4.0. The reference r markus was not used to int erpret this result as normal/abnormal . [facility] Hospit[id number] 21:40:00 Test Item Value Reference Range Interpretation Comments Segs (test code = Segs) 65.0 45.0-75.0 [facility] Hospit[id number] 21:40:00 Test Item Value Reference Range Interpretation Comments Platelet (test code = Platelet) 342 133-450 [facility] HospitalCjkompvEVIYYEVOIL1113-20-73 21:40:00 Test Item Value Reference Range Interpretation Comments MPV (test code = MPV) 6.9 7.4-10.4 [facility] Hospit[id number] 21:40:00 Test Item Value Reference Range Interpretation Comments Hgb (test code = Hgb) 13.8 12.0-16.0 [facility] HospitalRpynitnFQCQCSBWRR4780-27-91 21:40:00 Test Item Value Reference Range Interpretation Comments Hct (test code = Hct) 41.9 36.0-48.0 [facility] H[id number] 21:40:00 Test Item Value Reference Range Interpretation Comments MCV (test code = MCV) 95.4 80.0-98.0 [facility] HospitalHihreudAIBYGOYPUK1209-01-18 21:40:00 Test Item Value Reference Range Interpretation Comments MCH (test code = MCH) 31.4 pg 27.0-31.0 [facility] Ho[id number] 21:40:00 Test Item Value Reference Range Interpretation Comments MCHC (test code = MCHC) 32.9 32.0-36.0 [facility] HospitalNcinbrnYETGPSASCR2942-76-07 21:40:00 Test Item Value Reference Range Interpretation Comments RDW (test code = RDW) 14.0 11.5-14.5 [facility] HospitalGswhdniJNYSUPQUUE1136-83-20 21:40:00 Test Item Value Reference Range Interpretation Comments WBC (test code = WBC) 10.6 3.7-10.4 [facility] H[id number] 21:40:00 Test Item Value Reference Range Interpretation Comments RBC (test code = RBC) 4.39 4.20-5.40 [facility] AND [id number] 21:40:00 Test Item Value Reference Range Interpretation Comments UA Urobilinogen (test code = UA <=1.0 mg/dL 0.1-1.0 Urobilinogen) [facility] AND [id number] 21:40:00 Test Item Value Reference Range Interpretation Comments UA WBC (test code = 4 See_Comment [Automa francine message] The UA WBC) system which ge nerated this result transmit francine reference range : <=5. The reference range was not used to interpr et this result as angel l/abnormal. [facility] AND [id number] 21:40:00 Test Item Value Reference Range Interpretation Comments UA RBC (test code = 6 See_Comment [Automa francine message] The UA RBC) system which ge nerated this result transmit francine reference range : <=2. The reference range was not used to interpr et this result as angel l/abnormal. [facility] AND [id number] 21:40:00 Test Item Value Reference Range Interpretation Comments UA Mucus (test code = UA Mucus) Many /LPF [facility] AND [id number] 21:40:00 Test Item Value Reference Range Interpretation Comments UA pH (test code = UA pH) 5.0 5.0-8.0 [facility] AND [id number] 21:40:00 Test Item Value Reference Range Interpretation Comments UA Protein (test code = UA Protein) 30 mg/dL [facility] AND [id number] 21:40:00 Test Item Value Reference Range Interpretation Comments UA Glucose (test code = UA Negative mg/dL Glucose) [facility] AND [id number] 21:40:00 Test Item Value Reference Range Interpretation Comments UA Ketones (test code = UA Ketones) 20 mg/dL [facility] AND [id number] 21:40:00 Test Item Value Reference Range Interpretation Comments UA Blood (test code = Negative (02/18/17 4:40 UA Blood) PM) [facility] AND [id number] 21:40:00 Test Item Value Reference Range Interpretation Comments UA Nitrite (test code Negative (02/18/17 4:40 = UA Nitrite) PM) [facility] AND [id number] 21:40:00 Test Item Value Reference Range Interpretation Comments UA Bili (test code = Negative *NA*(02/18/17 UA Bili) 4:40 PM) [facility] AND [id number] 21:40:00 Test Item Value Reference Range Interpretation Comments UA Color (test code = Dark Yellow UA Color) *NA*(02/18/17 4:40 PM) [facility]2017-06-14 10:52:00 Test Item Value Reference Range Interpretation Comments Phosphorus (test code = Phosphorus) 2.7 2.5-4.5 [facility]2017-06-14 10:52:00 Test Item Value Reference Range Interpretation Comments Magnesium Lvl (test code = Magnesium 2.2 1.8-2.4 Lvl) [id number] 10:52:00 Test Item Value Reference Range Interpretation Comments Chloride Lvl (test code = Chloride Lvl) 109 95-109 [facility]ZharkqzOVMSJSUAETTE3256-17-08 10:52:00 Test Item Value Reference Range Interpretation Comments Calcium Lvl (test code = Calcium Lvl) 8.3 8.5-10.5 [facility]JpgskxrJQCETPOHYGZV5081-11-41 10:52:00 Test Item Value Reference Range Interpretation Comments AGAP (test code = AGAP) 10.6 10.0-20.0 [facility]GzitrsoEQHKTGCTBDMO5075-75-97 10:52:00 Test Item Value Reference Range Interpretation Comments Glucose Lvl (test code = Glucose Lvl) 88 70-99 [facility]EqsvuzePPFRQXOYNVRL5620-73-47 10:52:00 Test Item Value Reference Range Interpretation Comments Sodium Lvl (test code = Sodium Lvl) 144 135-145 [facility]EvyzwdiTJLPLXSAXQGL9132-62-11 10:52:00 Test Item Value Reference Range Interpretation Comments Potassium Lvl (test code = Potassium 3.6 3.5-5.1 Lvl) [facility]NaxplfsJFLPPHBHMSUG9185-79-82 10:52:00 Test Item Value Reference Range Interpretation Comments BUN (test code = BUN) 6 7- [facility]BsyoezrTBDLAEXEGEJR6991-01-70 10:52:00 Test Item Value Reference Range Interpretation Comments Creatinine Lvl (test code = Creatinine 0.61 0.50-1.40 Lvl) [facility]RsugmpvOALAJDTXIAAQ2740-47-00 10:52:00 Test Item Value Reference Range Interpretation Comments CO2 (test code = CO2) 28 - [facility]KopyggbAFOZPZJCUUFS6284-44-20 10:52:00 Test Item Value Reference Range Interpretation Comments eGFR (test code = eGFR) 110 [facility]2017-06-12 09:37:00 Test Item Value Reference Range Interpretation Comments eGFR (test code = eGFR) 110 [facility]2017-06-12 09:37:00 Test Item Value Reference Range Interpretation Comments Sodium Lvl (test code = Sodium Lvl) 140 135-145 [facility]2017-06-12 09:37:00 Test Item Value Reference Range Interpretation Comments Creatinine Lvl (test code = Creatinine 0.61 0.50-1.40 Lvl) [facility]2017-06-12 09:37:00 Test Item Value Reference Range Interpretation Comments Chloride Lvl (test code = Chloride Lvl) 106 95-109 [facility]2017-06-12 09:37:00 Test Item Value Reference Range Interpretation Comments Potassium Lvl (test code = Potassium 3.7 3.5-5.1 Lvl) [facility]2017-06-12 09:37:00 Test Item Value Reference Range Interpretation Comments CO2 (test code = CO2) 31 24-32 [facility]2017-06-12 09:37:00 Test Item Value Reference Range Interpretation Comments Calcium Lvl (test code = Calcium Lvl) 8.4 8.5-10.5 [facility]2017-06-12 09:37:00 Test Item Value Reference Range Interpretation Comments AGAP (test code = AGAP) 6.7 10.0-20.0 [facility]2017-06-12 09:37:00 Test Item Value Reference Range Interpretation Comments BUN (test code = BUN) 9 7-22 [facility]2017-06-12 09:37:00 Test Item Value Reference Range Interpretation Comments Glucose Lvl (test code = Glucose Lvl) 98 70-99 [facility] HospitalDkilqkoXFGZCKPUQO4680-80-54 09:37:00 Test Item Value Reference Range Interpretation Comments Hgb (test code = Hgb) 11.8 12.0-16.0 [facility] HospitalVcriivtUHWBMAXHYH8645-31-96 09:37:00 Test Item Value Reference Range Interpretation Comments WBC (test code = WBC) 8.0 3.7-10.4 [facility] Hospit[id number] 09:37:00 Test Item Value Reference Range Interpretation Comments MCH (test code = MCH) 30.2 pg 27.0-31.0 [facility] HospitalQvrqnviGKWAVIHZCG1801-97-52 09:37:00 Test Item Value Reference Range Interpretation Comments RBC (test code = RBC) 3.90 4.20-5.40 [facility] HospitalYqyrfztRXZMCMAXDH5985-89-85 09:37:00 Test Item Value Reference Range Interpretation Comments Hct (test code = Hct) 36.5 36.0-48.0 [facility] HospitalTmuctbiCDNLYJNPJE3166-10-71 09:37:00 Test Item Value Reference Range Interpretation Comments MCV (test code = MCV) 93.6 80.0-98.0 [facility] HospitalSyrrwebXJFPMSKFTG3202-21-48 09:37:00 Test Item Value Reference Range Interpretation Comments RDW (test code = RDW) 14.7 11.5-14.5 [facility] HospitalPjgdoqyYRLXGJBVHI1774-64-49 09:37:00 Test Item Value Reference Range Interpretation Comments MPV (test code = MPV) 6.6 7.4-10.4 [facility] HospitalOfdlpvcZJIUWNZJWD3512-59-69 09:37:00 Test Item Value Reference Range Interpretation Comments MCHC (test code = MCHC) 32.3 32.0-36.0 [facility] HospitalMfdfytiIMYVZZIZQV3107-82-16 09:37:00 Test Item Value Reference Range Interpretation Comments Platelet (test code = Platelet) 290 133-450 [facility] HospitalUhjrpknKVDVFKZEYK9250-84-08 09:37:00 Test Item Value Reference Range Interpretation Comments Basophils # (test code 0.0 See_Comment [Aut omated message] The = Basophils #) system which generated this result tra nsmitted reference range : <=0.2. The reference r markus was not used to int erpret this result as normal/abnormal . [facility] HospitalIxgnibfXNKCCZWQIT0219-34-58 09:37:00 Test Item Value Reference Range Interpretation Comments Monocytes (test code = Monocytes) 5.3 2.0-12.0 [facility] HospitalPxkzhxeLTWXHHVJUX5670-95-34 09:37:00 Test Item Value Reference Range Interpretation Comments Lymphocytes (test code = Lymphocytes) 28.2 20.0-40.0 [facility] HospitalDmjsnchWCPKDSIJNH9418-24-91 09:37:00 Test Item Value Reference Range Interpretation Comments Segs (test code = Segs) 64.9 45.0-75.0 [facility] HospitalDezudakETXEFFYTQI9691-41-23 09:37:00 Test Item Value Reference Range Interpretation Comments Eosinophils (test code = 1.4 See_Comment [A utomated message] The Eosinophils) system which ge nerated this result tra nsmitted reference range : <=4.0. The reference r markus was not used to int erpret this result as normal/abnormal . [facility] HospitalBcengkfIJPQFPXWZR9538-19-17 09:37:00 Test Item Value Reference Range Interpretation Comments Basophils (test code = 0.2 See_Comment [Aut omated message] The Basophils) system which ge nerated this result tra nsmitted reference range : <=1.0. The reference r markus was not used to int erpret this result as normal/abnormal . [facility] HospitalRpifsnbPNHGRZUTLR2382-80-56 09:37:00 Test Item Value Reference Range Interpretation Comments Lymphocytes # (test code = Lymphocytes 2.3 1.0-5.5 #) [facility] HospitalCblfmljZSIWDPNBDD4529-05-34 09:37:00 Test Item Value Reference Range Interpretation Comments Eosinophils # (test code 0.1 See_Comment [A utomated message] The = Eosinophils #) system ic h generated this result tra nsmitted reference range : <=0.5. The reference r markus was not used to int erpret this result as normal/abnormal . [facility]YiuegprMWDQFMANHX8729-[facility] 09:37:00 Test Item Value Reference Range Interpretation Comments Segs-Bands # (test code = Segs-Bands #) 5.2 1.5-8.1 [facility] HospitalXpdivsqQZEVYUOTPA5999-29-25 09:37:00 Test Item Value Reference Range Interpretation Comments Monocytes # (test code 0.4 See_Comment [Aut omated message] The = Monocytes #) system which generated this result tra nsmitted reference range : <=0.8. The reference r markus was not used to int erpret this result as normal/abnormal . [facility] MJFAYRDLAU3593-51-08 08:26:00 Test Item Value Reference Range Interpretation Comments C difficile DNA (test Positive code = C difficile DNA) 1*ABN*(10/10/16 3:26 AM) [facility] AND [id number] 08:26:00 Test Item Value Reference Range Interpretation Comments Fecal Leukocyte (test None Seen (10/10/16 code = Fecal Leukocyte) 3:26 AM) [facility] [id number] 04:11:00 Test Item Value Reference Range Interpretation Comments B/C Ratio (test code = B/C Ratio) 13 -25 [facility]CHE[facility] [id number] 04:11:00 Test Item Value Reference Range Interpretation Comments AGAP (test code = AGAP) 10.6 10.0-20.0 [facility] [id number] 04:11:00 Test Item Value Reference Range Interpretation Comments Globulin (test code = Globulin) 3.7 2.7-4.2 [facility] [id number] 04:11:00 Test Item Value Reference Range Interpretation Comments A/G Ratio (test code = A/G Ratio) 1.1 0.7-1.6 [facility] [id number] 04:11:00 Test Item Value Reference Range Interpretation Comments Bili Total (test code = Bili Total) 0.2 0.2-1.3 [facility] [id number] 04:11:00 Test Item Value Reference Range Interpretation Comments AST (test code = AST) 13 See_Comment [Auto mated message] The system which ge nerated this result transmit francine reference range : <=37. The reference range was not used to interpr et this result as angel l/abnormal. [facility]2017-06-12 04:11:00 Test Item Value Reference Range Interpretation Comments Alk Phos (test code = Alk Phos) 110 39-136 [facility]2017-06-12 04:11:00 Test Item Value Reference Range Interpretation Comments eGFR (test code = eGFR) 82 [facility]2017-06-12 04:11:00 Test Item Value Reference Range Interpretation Comments Creatinine Lvl (test code = Creatinine 0.86 0.50-1.40 Lvl) [facility]2017-06-12 04:11:00 Test Item Value Reference Range Interpretation Comments CO2 (test code = CO2) 34 24-32 [facility]2017-06-12 04:11:00 Test Item Value Reference Range Interpretation Comments Calcium Lvl (test code = Calcium Lvl) 9.5 8.5-10.5 [facility]2017-06-12 04:11:00 Test Item Value Reference Range Interpretation Comments Glucose Lvl (test code = Glucose Lvl) 125 70-99 [facility]2017-06-12 04:11:00 Test Item Value Reference Range Interpretation Comments BUN (test code = BUN) 11 7-22 [facility]2017-06-12 04:11:00 Test Item Value Reference Range Interpretation Comments Potassium Lvl (test code = Potassium 3.6 3.5-5.1 Lvl) [facility]2017-06-12 04:11:00 Test Item Value Reference Range Interpretation Comments Sodium Lvl (test code = Sodium Lvl) 140 135-145 [facility]2017-06-12 04:11:00 Test Item Value Reference Range Interpretation Comments Chloride Lvl (test code = Chloride Lvl) 99 95-109 [facility]2017-06-12 04:11:00 Test Item Value Reference Range Interpretation Comments Total Protein (test code = Total 7.8 6.4-8.4 Protein) [facility]2017-06-12 04:11:00 Test Item Value Reference Range Interpretation Comments Albumin Lvl (test code = Albumin Lvl) 4.1 3.5-5.0 [facility]2017-06-12 04:11:00 Test Item Value Reference Range Interpretation Comments ALT (test code = ALT) 18 See_Comment [Auto mated message] The system which ge nerated this result transmit francine reference range : <=65. The reference range was not used to interpr et this result as angel l/abnormal. [place] [id number] 04:11:00 Test Item Value Reference Range Interpretation Comments hCG Tot (test code = hCG Tot) no gt [facility] HospitalFulsqlnTPAYGFZFYR3828-08-30 04:11:00 Test Item Value Reference Range Interpretation Comments Segs-Bands # (test code = Segs-Bands #) 7.5 1.5-8.1 [facility] HospitalUmybocrTBEVHYPXFX7531-11-99 04:11:00 Test Item Value Reference Range Interpretation Comments Segs (test code = Segs) 67.9 45.0-75.0 [facility] HospitalVgqimezOQGTIMFZDS7806-30-55 04:11:00 Test Item Value Reference Range Interpretation Comments Eosinophils (test code = 1.4 See_Comment [A utomated message] The Eosinophils) system which ge nerated this result tra nsmitted reference range : <=4.0. The reference r markus was not used to int erpret this result as normal/abnormal . [facility] HospitalGengraeLWQHKJFWOM6604-78-73 04:11:00 Test Item Value Reference Range Interpretation Comments Monocytes (test code = Monocytes) 4.5 2.0-12.0 [facility] HospitalTbtedwxAJVTNTVXJV8063-78-87 04:11:00 Test Item Value Reference Range Interpretation Comments Basophils (test code = 0.3 See_Comment [Aut omated message] The Basophils) system which ge nerated this result tra nsmitted reference range : <=1.0. The reference r markus was not used to int erpret this result as normal/abnormal . [facility] HospitalAyhggqtROERBMQOUD9667-85-25 04:11:00 Test Item Value Reference Range Interpretation Comments Lymphocytes (test code = Lymphocytes) 25.9 20.0-40.0 [facility] HospitalYpilwzdIVPBGKDVDO1088-21-47 04:11:00 Test Item Value Reference Range Interpretation Comments Eosinophils # (test code 0.2 See_Comment [A utomated message] The = Eosinophils #) system whic h generated this result tra nsmitted reference range : <=0.5. The reference r markus was not used to int erpret this result as normal/abnormal . [facility] HospitalSplgkxxNYTJWQGFYN0255-22-49 04:11:00 Test Item Value Reference Range Interpretation Comments Lymphocytes # (test code = Lymphocytes 2.9 1.0-5.5 #) [facility] HospitalWjahtlnRFPOPIYSQB8928-01-87 04:11:00 Test Item Value Reference Range Interpretation Comments Monocytes # (test code 0.5 See_Comment [Aut omated message] The = Monocytes #) system which generated this result tra nsmitted reference range : <=0.8. The reference r markus was not used to int erpret this result as normal/abnormal . [facility] HospitalSnzzwfaPHEWUPYXGW1381-72-56 04:11:00 Test Item Value Reference Range Interpretation Comments Basophils # (test code 0.0 See_Comment [Aut omated message] The = Basophils #) system which generated this result tra nsmitted reference range : <=0.2. The reference r markus was not used to int erpret this result as normal/abnormal . [facility] HospitalHvjcjeeAEFHZTOHWQ1225-41-61 04:11:00 Test Item Value Reference Range Interpretation Comments MCHC (test code = MCHC) 32.7 32.0-36.0 [facility] HospitalXhflvgaWSZHNGOSOT3049-13-60 04:11:00 Test Item Value Reference Range Interpretation Comments MCH (test code = MCH) 30.5 pg 27.0-31.0 [facility] HospitalSopblnzLDMURTSTKP1476-86-54 04:11:00 Test Item Value Reference Range Interpretation Comments RBC (test code = RBC) 4.68 4.20-5.40 [facility] HospitalScizkoaEMMFCIHZDG6475-51-97 04:11:00 Test Item Value Reference Range Interpretation Comments WBC (test code = WBC) 11.1 3.7-10.4 [facility] HospitalJlmyujfVARNECLIGX6824-58-53 04:11:00 Test Item Value Reference Range Interpretation Comments MCV (test code = MCV) 93.4 80.0-98.0 [facility] HospitalHlfquaiGSVJUJCJAL1835-05-98 04:11:00 Test Item Value Reference Range Interpretation Comments Hgb (test code = Hgb) 14.3 12.0-16.0 [facility] HospitalIxxkwnyGYORDCFGCG4791-59-90 04:11:00 Test Item Value Reference Range Interpretation Comments Hct (test code = Hct) 43.7 36.0-48.0 [facility] HospitalEaubyypJIYPAWUHLS5181-49-26 04:11:00 Test Item Value Reference Range Interpretation Comments Platelet (test code = Platelet) 396 133-450 [facility] HospitalKxbygqyPATPRGPDBM3967-46-10 04:11:00 Test Item Value Reference Range Interpretation Comments RDW (test code = RDW) 14.9 11.5-14.5 [facility] HospitalXbkcoleQPQTQBFQJH8042-35-79 04:11:00 Test Item Value Reference Range Interpretation Comments MPV (test code = MPV) 7.0 7.4-10.4 [facility] AND [id number] 04:11:00 Test Item Value Reference Range Interpretation Comments UA Spec Grav (test code = UA Spec Grav) 1.020 [facility] AND [id number] 04:11:00 Test Item Value Reference Range Interpretation Comments UA Urobilinogen (test code = UA <=1.0 mg/dL 0.1-1.0 Urobilinogen) [facility] AND [id number] 04:11:00 Test Item Value Reference Range Interpretation Comments UA Trans Epi (test code = UA Trans Epi) 4 [facility] AND [id number] 04:11:00 Test Item Value Reference Range Interpretation Comments UA Leuk Est (test Negative (10/09/16 11:11 code = UA Leuk Est) PM) [facility] AND [id number] 04:11:00 Test Item Value Reference Range Interpretation Comments UA Ketones (test code = UA Negative mg/dL Ketones) [facility] AND [id number] 04:11:00 Test Item Value Reference Range Interpretation Comments UA Blood (test code = Negative (10/09/16 11:11 UA Blood) PM) [facility] AND [id number] 04:11:00 Test Item Value Reference Range Interpretation Comments UA Bili (test code = Negative *NA*(10/09/16 UA Bili) 11:11 PM) [facility] AND [id number] 04:11:00 Test Item Value Reference Range Interpretation Comments UA Nitrite (test code Negative (10/09/16 11:11 = UA Nitrite) PM) [facility] AND [id number] 04:11:00 Test Item Value Reference Range Interpretation Comments UA Sq Epi (test code = UA Sq Occasional /LPF Epi) [facility] AND [id number] 04:11:00 Test Item Value Reference Range Interpretation Comments UA RBC (test code = 2 See_Comment [Automa francine message] The UA RBC) system which ge nerated this result transmit francine reference range : <=2. The reference range was not used to interpr et this result as angel l/abnormal. [facility] AND [id number] 04:11:00 Test Item Value Reference Range Interpretation Comments UA Mucus (test code = UA Mucus) Few /LPF [facility] AND [id number] 04:11:00 Test Item Value Reference Range Interpretation Comments UA Hyal Cast (test 4 See_Comment [Automat ed message] The code = UA Hyal Cast) system which generated this result transmit francine reference range : <=2. The reference range was not used to interpr et this result as angel l/abnormal. [facility] AND [id number] 04:11:00 Test Item Value Reference Range Interpretation Comments UA Amorph Priti (test code = Occasional /HPF UA Amorph Priti) [facility] AND [id number] 04:11:00 Test Item Value Reference Range Interpretation Comments UA Turbidity (test code Marked *ABN*(10/09/16 = UA Turbidity) 11:11 PM) [facility] AND [id number] 04:11:00 Test Item Value Reference Range Interpretation Comments UA Color (test code = Dark Yellow UA Color) *NA*(10/09/16 11:11 PM) [facility] AND [id number] 04:11:00 Test Item Value Reference Range Interpretation Comments UA pH (test code = UA pH) 8.0 5.0-8.0 [facility] AND [id number] 04:11:00 Test Item Value Reference Range Interpretation Comments UA Glucose (test code = UA Negative mg/dL Glucose) [facility] AND [id number] 04:11:00 Test Item Value Reference Range Interpretation Comments UA Protein (test code = UA Protein) 100 mg/dL [facility] ABDOMEN/PELVIS [id number] 14:26:[address] [id number] IMAGING REPORTPat ient Name: Manuel DEL TORO of Service: [id number]: 45 Sex: F Order #: [id number] Room: ERSDOB: 1970 X-Ray Number: [id number] Record Number: [id number] Hospital Number: [id number] Physician: KISHAN MUNOZ -Ordering Physician: HERNANDEZ MONTEMAYOR ABDOMEN AND PELVIS WITH CONTRAST:CLINICAL HISTORY: Left-sided abdominal pain for 2 weeks; nausea andvomiting; history of bowel resection and hysterectomy; pain pumpTECHNIQUE: Examination is performed following intravenous administration of100 mL of Isovue-300. 4 mm axial sections were obtained with coronal andsagittal recon structions. The GFR is 115 .FINDINGS: Lung bases are clear although they're mildly hyperinflated.The enhanced liver, spleen, pancreas and adrenal glands are unremarkable.There is bilateral unobstructed renal function noted as seen previously. Aprominent cyst in the left kidney.There are clips in the g allbladder fossa consistent with the previouscholecystectomy.There are postoperative [...] M.D., 07/26/2016 2:23 PMLegally authenticated by TIFFANIE Espinosa 2016-07-26 14:23:48CT ABDOMEN/PELVIS [id number] 02:49:[address] [id number] IMAGING REPORTPatient Name: Manuel DEL TORO of Service: [id number]: 45 Sex: F Order #: [id number] Room: [facility]/ A 2NEDOB: 1970 X-Ray Number: [id number] Record Number: [id number] Hospital Number: [id number] Physician: BLAKE ALLEN -Ordering Physician: AURORA LOWERY abdomen a nd pelvis without IV contrast, with GI contrast [...] dilation. The gallbladder is absent there is an abdominal wall pain pump. Liver and spleen are normal size.IMPRESSION:1. Minimal free fluid, a nonspecific finding2. There is distal colitis. The appearance is nonspecific.Electronically Signed By: Sylvain Galo M.D., 07/17/2016 2:47 AMLegally authenticated by MARTINEZ VALDEZ 2016-07-17 02:47:19ABDOMANDRIY 2 VIEWS 2016-07-15 12:14:[address]IAG[address] IMAGING REPORTPatient Name: Manuel DEL TORO of Service: [id number]: [id number] Sex: F Order #: [id number] [facility] 1970 [facility] Number: [id number] Record Number: [id number] Hospital Number: [id number] Physician: Mike TEJEDAing Physician: Elvis GARCIA 2 views 07/15/2016 at11:40 [...] 12:12 PMLegally authenticated by RAFA GALVAN 2016-07-15 12:12:28[id number] 19:01:00 Test Item Value Reference Range Interpretation Comments Lactic Acid Lvl (test code = Lactic 2.1 0.5-2.2 Acid Lvl) [facility]2016-10-12 19:01:00 Test Item Value Reference Range Interpretation Comments eGFR (test code = eGFR) 97 [facility]2016-10-12 19:01:00 Test Item Value Reference Range Interpretation Comments Bili Total (test code = Bili Total) 0.3 0.2-1.3 [facility]2016-10-12 19:01:00 Test Item Value Reference Range Interpretation Comments Alk Phos (test code = Alk Phos) 98 39-136 [facility]2016-10-12 19:01:00 Test Item Value Reference Range Interpretation Comments AST (test code = AST) 24 See_Comment [Auto mated message] The system which ge nerated this result transmit francine reference range : <=37. The reference range was not used to interpr et this result as angel l/abnormal. [facility]2016-10-12 19:01:00 Test Item Value Reference Range Interpretation Comments ALT (test code = ALT) 24 See_Comment [Auto mated message] The system which ge nerated this result transmit francine reference range : <=65. The reference range was not used to interpr et this result as angel l/abnormal. [facility]2016-10-12 19:01:00 Test Item Value Reference Range Interpretation Comments Potassium Lvl (test code = Potassium 4.3 3.5-5.1 Lvl) [facility]2016-10-12 19:01:00 Test Item Value Reference Range Interpretation Comments Creatinine Lvl (test code = Creatinine 0.75 0.50-1.40 Lvl) [facility]2016-10-12 19:01:00 Test Item Value Reference Range Interpretation Comments Sodium Lvl (test code = Sodium Lvl) 137 135-145 [facility]2016-10-12 19:01:00 Test Item Value Reference Range Interpretation Comments Glucose Lvl (test code = Glucose Lvl) 91 70-99 [facility]2016-10-12 19:01:00 Test Item Value Reference Range Interpretation Comments BUN (test code = BUN) 8 7-22 [facility]2016-10-12 19:01:00 Test Item Value Reference Range Interpretation Comments Albumin Lvl (test code = Albumin Lvl) 3.2 3.5-5.0 [facility]2016-10-12 19:01:00 Test Item Value Reference Range Interpretation Comments Total Protein (test code = Total 7.6 6.4-8.4 Protein) [facility]2016-10-12 19:01:00 Test Item Value Reference Range Interpretation Comments CO2 (test code = CO2) 26 24-32 [facility]2016-10-12 19:01:00 Test Item Value Reference Range Interpretation Comments Calcium Lvl (test code = Calcium Lvl) 8.4 8.5-10.5 [facility]2016-10-12 19:01:00 Test Item Value Reference Range Interpretation Comments Chloride Lvl (test code = Chloride Lvl) 104 95-109 [facility]2016-10-12 19:01:00 Test Item Value Reference Range Interpretation Comments AGAP (test code = AGAP) 11.3 10.0-20.0 [facility]2016-10-12 19:01:00 Test Item Value Reference Range Interpretation Comments A/G Ratio (test code = A/G Ratio) 0.7 0.7-1.6 [facility]2016-10-12 19:01:00 Test Item Value Reference Range Interpretation Comments Globulin (test code = Globulin) 4.4 2.7-4.2 [facility]2016-10-12 19:01:00 Test Item Value Reference Range Interpretation Comments B/C Ratio (test code = B/C Ratio) 11 6-25 [facility]KflouihZYUCMYDGUV1618-83-08 19:01:00 Test Item Value Reference Range Interpretation Comments MPV (test code = MPV) 7.0 7.4-10.4 [facility] HospitalZqlzpwmKIYTOEUJEG8426-68-16 19:01:00 Test Item Value Reference Range Interpretation Comments Platelet (test code = Platelet) 340 133-450 [facility] HospitalTxtfhblAQLPBJXHRH5727-27-39 19:01:00 Test Item Value Reference Range Interpretation Comments RDW (test code = RDW) 13.9 11.5-14.5 [facility] HospitalMtipmmfMQWIXKHIGU1498-86-55 19:01:00 Test Item Value Reference Range Interpretation Comments MCH (test code = MCH) 30.2 pg 27.0-31.0 [facility] HospitalEnsfuixILJDAAVUVA6400-97-95 19:01:00 Test Item Value Reference Range Interpretation Comments MCHC (test code = MCHC) 33.4 32.0-36.0 [facility] HospitalOsmgjlyBJZWGKHVGJ1717-63-25 19:01:00 Test Item Value Reference Range Interpretation Comments WBC (test code = WBC) 11.0 3.7-10.4 [facility] HospitalAtbjvrnZGRFSGJOYA5454-41-73 19:01:00 Test Item Value Reference Range Interpretation Comments MCV (test code = MCV) 90.4 80.0-98.0 [facility] HospitalAfvdgtsLNONJGKJEQ9278-67-88 19:01:00 Test Item Value Reference Range Interpretation Comments Hct (test code = Hct) 43.3 36.0-48.0 [facility] HospitalPjmnltnMESAKIAICX0169-82-44 19:01:00 Test Item Value Reference Range Interpretation Comments Hgb (test code = Hgb) 14.5 12.0-16.0 [facility] HospitalYhnhytwVLCBKLIITC5440-09-44 19:01:00 Test Item Value Reference Range Interpretation Comments RBC (test code = RBC) 4.79 4.20-5.40 [facility] HospitalSwsjcylDMCQFVSZPD5734-42-76 19:01:00 Test Item Value Reference Range Interpretation Comments Basophils (test code = 0.9 See_Comment [Aut omated message] The Basophils) system which ge nerated this result tra nsmitted reference range : <=1.0. The reference r markus was not used to int erpret this result as normal/abnormal . [facility] HospitalMnsseurUZWIRTINAY2119-31-61 19:01:00 Test Item Value Reference Range Interpretation Comments Segs-Bands # (test code = Segs-Bands #) 7.4 1.5-8.1 [facility] HospitalTvoibwmRQKPABUFEL1455-60-00 19:01:00 Test Item Value Reference Range Interpretation Comments Eosinophils (test code = 1.6 See_Comment [A utomated message] The Eosinophils) system which ge nerated this result tra nsmitted reference range : <=4.0. The reference r markus was not used to int erpret this result as normal/abnormal . [facility] HospitalKxqyezuNNFLMKAWYD3147-18-41 19:01:00 Test Item Value Reference Range Interpretation Comments Monocytes (test code = Monocytes) 5.0 2.0-12.0 [facility] HospitalDbyhxdbAYNGKBFAJU2548-35-81 19:01:00 Test Item Value Reference Range Interpretation Comments Lymphocytes (test code = Lymphocytes) 25.2 20.0-40.0 [facility] HospitalPfelfbgAIVCROYUAJ3370-08-93 19:01:00 Test Item Value Reference Range Interpretation Comments Eosinophils # (test code 0.2 See_Comment [A utomated message] The = Eosinophils #) system wh h generated this result tra nsmitted reference range : <=0.5. The reference r markus was not used to int erpret this result as normal/abnormal . [facility] HospitalBmmvnqzWXNVLIDILT2667-85-31 19:01:00 Test Item Value Reference Range Interpretation Comments Basophils # (test code 0.1 See_Comment [Aut omated message] The = Basophils #) system which generated this result tra nsmitted reference range : <=0.2. The reference r markus was not used to int erpret this result as normal/abnormal . [facility] HospitalGzbmophSFHHLRXNFL1118-79-55 19:01:00 Test Item Value Reference Range Interpretation Comments Monocytes # (test code 0.6 See_Comment [Aut omated message] The = Monocytes #) system which generated this result tra nsmitted reference range : <=0.8. The reference r markus was not used to int erpret this result as normal/abnormal . [facility] HospitalQazlecfZCIKCCDCSS0750-64-39 19:01:00 Test Item Value Reference Range Interpretation Comments Lymphocytes # (test code = Lymphocytes 2.8 1.0-5.5 #) [facility] HospitalTjuouvwWMDBMXOZBE6885-73-63 19:01:00 Test Item Value Reference Range Interpretation Comments Segs (test code = Segs) 67.3 45.0-75.0 [facility] AND [id number] 15:41:00 Test Item Value Reference Range Interpretation Comments UA Sq Epi (test code = UA Sq Epi) Few /LPF [facility] [id number] 15:41:00 Test Item Value Reference Range Interpretation Comments UA WBC (test code = UA WBC) 3-5 /HPF [facility] [id number] 15:41:00 Test Item Value Reference Range Interpretation Comments UA Bacteria (test code = UA Few /HPF Bacteria) [facility] [id number] 15:41:00 Test Item Value Reference Range Interpretation Comments UA RBC (test code = 0-2 /HPF See_Comment [Automa francine message] The UA RBC) system which ge nerated this result tra nsmitted reference range : <=2. The reference range was not used to interpr et this result as angel l/abnormal. [facility] [id number] 15:41:00 Test Item Value Reference Range Interpretation Comments UA Mucus (test code = None Seen (08/13/14 UA Mucus) 10:41 AM) [facility] AND [id number] 15:41:00 Test Item Value Reference Range Interpretation Comments UA Protein (test code = Trace *ABN*(08/13/14 UA Protein) 10:41 AM) [facility] [id number] 15:41:00 Test Item Value Reference Range Interpretation Comments UA Glucose (test code Negative (08/13/14 10:41 = UA Glucose) AM) [facility] [id number] 15:41:00 Test Item Value Reference Range Interpretation Comments UA Ketones (test code Negative *NA*(08/13/14 = UA Ketones) 10:41 AM) [facility] [id number] 15:41:00 Test Item Value Reference Range Interpretation Comments UA Bili (test code = Negative *NA*(08/13/14 UA Bili) 10:41 AM) [facility] [id number] 15:41:00 Test Item Value Reference Range Interpretation Comments UA Urobilinogen (test code = UA 0.2 0.1-1.0 Urobilinogen) [facility] [id number] 15:41:00 Test Item Value Reference Range Interpretation Comments UA Nitrite (test code Negative (08/13/14 10:41 = UA Nitrite) AM) [facility] AND [id number] 15:41:00 Test Item Value Reference Range Interpretation Comments UA Leuk Est (test code Small *ABN*(08/13/14 = UA Leuk Est) 10:41 AM) [facility] AND [id number] 15:41:00 Test Item Value Reference Range Interpretation Comments UA Blood (test code = Negative (08/13/14 10:41 UA Blood) AM) [facility] AND [id number] 15:41:00 Test Item Value Reference Range Interpretation Comments UA Spec Grav (test >=1.030 *ABN*(08/13/14 code = UA Spec Grav) 10:41 AM) [facility] AND [id number] 15:41:00 Test Item Value Reference Range Interpretation Comments UA pH (test code = UA pH) 6.0 1 5.0-8.0 [facility] AND [id number] 15:41:00 Test Item Value Reference Range Interpretation Comments UA Color (test code = Yellow *NA*(08/13/14 UA Color) 10:41 AM) [facility] AND [id number] 15:41:00 Test Item Value Reference Range Interpretation Comments UA Turbidity (test code = Clear (08/13/14 10:41 UA Turbidity) AM) [facility]2015-04-15 12:37:00 Test Item Value Reference Range Interpretation Comments eGFR (test code = eGFR) 70 [facility]2015-04-15 12:37:00 Test Item Value Reference Range Interpretation Comments Sodium Lvl (test code = Sodium Lvl) 140 135-145 [facility]2015-04-15 12:37:00 Test Item Value Reference Range Interpretation Comments Creatinine Lvl (test code = Creatinine 1.0 0.5-1.4 Lvl) [facility]2015-04-15 12:37:00 Test Item Value Reference Range Interpretation Comments BUN (test code = BUN) 29 7-22 [facility]2015-04-15 12:37:00 Test Item Value Reference Range Interpretation Comments Potassium Lvl (test code = Potassium 2.7 3.5-5.1 Lvl) [facility]2015-04-15 12:37:00 Test Item Value Reference Range Interpretation Comments Glucose Lvl (test code = Glucose Lvl) 64 70-99 [facility]2015-04-15 12:37:00 Test Item Value Reference Range Interpretation Comments Bili Total (test code = Bili Total) 0.7 0.2-1.3 [facility]2015-04-15 12:37:00 Test Item Value Reference Range Interpretation Comments Alk Phos (test code = Alk Phos) 82 39-136 [facility]2015-04-15 12:37:00 Test Item Value Reference Range Interpretation Comments AST (test code = AST) 24 See_Comment [Auto mated message] The system which ge nerated this result transmit francine reference range : <=37. The reference range was not used to interpr et this result as angel l/abnormal. [facility]2015-04-15 12:37:00 Test Item Value Reference Range Interpretation Comments Albumin Lvl (test code = Albumin Lvl) 4.2 3.5-5.0 [facility]2015-04-15 12:37:00 Test Item Value Reference Range Interpretation Comments B/C Ratio (test code = B/C Ratio) 29 6-25 [facility]2015-04-15 12:37:00 Test Item Value Reference Range Interpretation Comments ALT (test code = ALT) 26 See_Comment [Auto mated message] The system which ge nerated this result transmit francine reference range : <=65. The reference range was not used to interpr et this result as angel l/abnormal. [facility]2015-04-15 12:37:00 Test Item Value Reference Range Interpretation Comments Calcium Lvl (test code = Calcium Lvl) 9.0 8.5-10.5 [facility]2015-04-15 12:37:00 Test Item Value Reference Range Interpretation Comments AGAP (test code = AGAP) 8.7 10.0-20.0 [facility]2015-04-15 12:37:00 Test Item Value Reference Range Interpretation Comments CO2 (test code = CO2) 29 24-32 [facility]2015-04-15 12:37:00 Test Item Value Reference Range Interpretation Comments Chloride Lvl (test code = Chloride Lvl) 105 95-109 [facility]2015-04-15 12:37:00 Test Item Value Reference Range Interpretation Comments A/G Ratio (test code = A/G Ratio) 1.2 0.7-1.6 [facility]2015-04-15 12:37:00 Test Item Value Reference Range Interpretation Comments Globulin (test code = Globulin) 3.5 2.0-4.0 [facility]2015-04-15 12:37:00 Test Item Value Reference Range Interpretation Comments Total Protein (test code = Total 7.7 6.4-8.4 Protein) [facility] HospitalQdhtbwyVNCWEVHSLD6867-06-55 12:37:00 Test Item Value Reference Range Interpretation Comments RDW (test code = RDW) 14.1 11.5-14.5 [facility] Hospit[id number] 12:37:00 Test Item Value Reference Range Interpretation Comments MCH (test code = MCH) 30.5 pg 27.0-31.0 [facility] HospitalCmkssxkECWOQJYEAM6287-40-42 12:37:00 Test Item Value Reference Range Interpretation Comments MCHC (test code = MCHC) 33.3 32.0-36.0 [facility] HospitalBskayieBOTGFCJZKC3579-67-15 12:37:00 Test Item Value Reference Range Interpretation Comments MPV (test code = MPV) 6.7 7.4-10.4 [facility] HospitalEpwjeqoXUAOXMCEYW0776-11-29 12:37:00 Test Item Value Reference Range Interpretation Comments Platelet (test code = Platelet) 256 133-450 [facility] HospitalGptihrbBCUKSDUCJY8145-70-31 12:37:00 Test Item Value Reference Range Interpretation Comments MCV (test code = MCV) 91.6 80.0-98.0 [facility] HospitalJizsodoGBNWEFCZZP5766-24-64 12:37:00 Test Item Value Reference Range Interpretation Comments Hct (test code = Hct) 40.4 36.0-48.0 [facility] HospitalVejbnwsGXICKJLGVH0464-45-56 12:37:00 Test Item Value Reference Range Interpretation Comments Hgb (test code = Hgb) 13.4 12.0-16.0 [facility] HospitalNsvljwfCJPYPNZURT2390-39-99 12:37:00 Test Item Value Reference Range Interpretation Comments WBC (test code = WBC) 8.0 3.7-10.4 [facility] HospitalBcrcdheFTFSDJYUJH1720-36-52 12:37:00 Test Item Value Reference Range Interpretation Comments RBC (test code = RBC) 4.41 4.20-5.40 [facility] HospitalIxgudrsDQHBDCOKPG8517-90-29 12:37:00 Test Item Value Reference Range Interpretation Comments Basophils # (test code 0.0 See_Comment [Aut omated message] The = Basophils #) system which generated this result tra nsmitted reference range : <=0.2. The reference r markus was not used to int erpret this result as normal/abnormal . [facility] HospitalSmvzvshWCJSQATVRD5596-48-69 12:37:00 Test Item Value Reference Range Interpretation Comments Lymphocytes # (test code = Lymphocytes 2.4 1.0-5.5 #) [facility] HospitalKjmclfsKYPIWABUWJ8449-35-25 12:37:00 Test Item Value Reference Range Interpretation Comments Segs-Bands # (test code = Segs-Bands #) 4.9 1.5-8.1 [facility] HospitalRrrgkqtUXBBMVOYVF2812-07-86 12:37:00 Test Item Value Reference Range Interpretation Comments Eosinophils # (test code 0.1 See_Comment [A utomated message] The = Eosinophils #) system whic h generated this result tra nsmitted reference range : <=0.5. The reference r markus was not used to int erpret this result as normal/abnormal . [facility] HospitalBaahavbPTALPYUKOA5089-04-88 12:37:00 Test Item Value Reference Range Interpretation Comments Monocytes # (test code 0.5 See_Comment [Aut omated message] The = Monocytes #) system which generated this result tra nsmitted reference range : <=0.8. The reference r markus was not used to int erpret this result as normal/abnormal . [facility] HospitalXnzgpabFLSAQDUFUX4299-40-63 12:37:00 Test Item Value Reference Range Interpretation Comments Eosinophils (test code = 1.6 See_Comment [A utomated message] The Eosinophils) system which ge nerated this result tra nsmitted reference range : <=4.0. The reference r markus was not used to int erpret this result as normal/abnormal . [facility] HospitalUyjxbxuQQXUJDLZYK8142-45-85 12:37:00 Test Item Value Reference Range Interpretation Comments Monocytes (test code = Monocytes) 6.5 2.0-12.0 [facility]jjHOCPLICPBW1581-[facility]-23 12:37:00 Test Item Value Reference Range Interpretation Comments Lymphocytes (test code = Lymphocytes) 30.0 20.0-40.0 [facility] CenterVgbyvfvAVYHHQDQIC6451-11-25 12:37:00 Test Item Value Reference Range Interpretation Comments Segs (test code = Segs) 61.6 45.0-75.0 [facility] CenterOkmalgyNGRMKMGBDI1141-35-09 12:37:00 Test Item Value Reference Range Interpretation Comments Basophils (test code = 0.3 See_Comment [Aut omated message] The Basophils) system which ge nerated this result tra nsmitted reference range : <=1.0. The reference r markus was not used to int erpret this result as normal/abnormal . [facility] [id number] 13:50:00 Test Item Value Reference Range Interpretation Comments Magnesium Lvl (test code = Magnesium 1.8 1.8-2.4 Lvl) [facility] AND [id number] 12:55:00 Test Item Value Reference Range Interpretation Comments UA Color (test code = Yellow *NA*(03/09/14 UA Color) 6:55 AM) [facility] [id number] 12:55:00 Test Item Value Reference Range Interpretation Comments UA WBC (test code = UA WBC) 21-50 /HPF [facility] [id number] 12:55:00 Test Item Value Reference Range Interpretation Comments UA Sq Epi (test code = UA Sq Moderate /LPF Epi) [facility] [id number] 12:55:00 Test Item Value Reference Range Interpretation Comments UA Mucus (test code = UA Mucus) Few /LPF [facility] [id number] 12:55:00 Test Item Value Reference Range Interpretation Comments UA Amorph Priti (test code = UA Few /HPF Amorph Priti) [facility] [id number] 12:55:00 Test Item Value Reference Range Interpretation Comments UA RBC (test code = 3-5 /HPF See_Comment [Automa francine message] The UA RBC) system which ge nerated this result tra nsmitted reference range : <=2. The reference range was not used to interpr et this result as angel l/abnormal. [facility] [id number] 12:55:00 Test Item Value Reference Range Interpretation Comments UA Bacteria (test code = UA Moderate /HPF Bacteria) [facility]2014-11-09 12:55:00 Test Item Value Reference Range Interpretation Comments Lipase Lvl (test code = Lipase Lvl) 396 73-393 [facility]2014-11-09 12:55:00 Test Item Value Reference Range Interpretation Comments Amylase Lvl (test code = Amylase Lvl) 50 25-115 [facility]2014-11-09 12:55:00 Test Item Value Reference Range Interpretation Comments A/G Ratio (test code = A/G Ratio) 1.2 0.7-1.6 [facility]2014-11-09 12:55:00 Test Item Value Reference Range Interpretation Comments Globulin (test code = Globulin) 3.3 2.0-4.0 [facility]2014-11-09 12:55:00 Test Item Value Reference Range Interpretation Comments AST (test code = AST) 8 See_Comment [Auto mated message] The system which ge nerated this result transmit francine reference range : <=37. The reference range was not used to interpr et this result as angel l/abnormal. [facility]2014-11-09 12:55:00 Test Item Value Reference Range Interpretation Comments Alk Phos (test code = Alk Phos) 61 39-136 [facility]2014-11-09 12:55:00 Test Item Value Reference Range Interpretation Comments ALT (test code = ALT) 16 See_Comment [Auto mated message] The system which ge nerated this result transmit francine reference range : <=65. The reference range was not used to interpr et this result as angel l/abnormal. [facility]2014-11-09 12:55:00 Test Item Value Reference Range Interpretation Comments Calcium Lvl (test code = Calcium Lvl) 9.1 8.5-10.5 [facility]2014-11-09 12:55:00 Test Item Value Reference Range Interpretation Comments B/C Ratio (test code = B/C Ratio) 12 6-25 [facility]2014-11-09 12:55:00 Test Item Value Reference Range Interpretation Comments Total Protein (test code = Total 7.2 6.4-8.4 Protein) [facility]2014-11-09 12:55:00 Test Item Value Reference Range Interpretation Comments AGAP (test code = AGAP) 9.3 10.0-20.0 [facility]2014-11-09 12:55:00 Test Item Value Reference Range Interpretation Comments Albumin Lvl (test code = Albumin Lvl) 3.9 3.5-5.0 [facility]2014-11-09 12:55:00 Test Item Value Reference Range Interpretation Comments Bili Total (test code = Bili Total) 0.9 0.2-1.3 [facility]2014-11-09 12:55:00 Test Item Value Reference Range Interpretation Comments eGFR (test code = eGFR) 79 [facility]2014-11-09 12:55:00 Test Item Value Reference Range Interpretation Comments Glucose Lvl (test code = Glucose Lvl) 106 70-99 [facility]2014-11-09 12:55:00 Test Item Value Reference Range Interpretation Comments BUN (test code = BUN) 11 7-22 [facility]2014-11-09 12:55:00 Test Item Value Reference Range Interpretation Comments Creatinine Lvl (test code = Creatinine 0.9 0.5-1.4 Lvl) [facility]2014-11-09 12:55:00 Test Item Value Reference Range Interpretation Comments Potassium Lvl (test code = Potassium 2.3 3.5-5.1 Lvl) [facility]2014-11-09 12:55:00 Test Item Value Reference Range Interpretation Comments Chloride Lvl (test code = Chloride Lvl) 104 95-109 [facility]2014-11-09 12:55:00 Test Item Value Reference Range Interpretation Comments CO2 (test code = CO2) 27 24-32 [facility]2014-11-09 12:55:00 Test Item Value Reference Range Interpretation Comments Sodium Lvl (test code = Sodium Lvl) 138 135-145 [facility]JkoaiqiAZIYROXBBV1974-30-46 12:55:00 Test Item Value Reference Range Interpretation Comments Monocytes # (test code 0.5 See_Comment [Aut omated message] The = Monocytes #) system which generated this result tra nsmitted reference range : <=0.8. The reference r markus was not used to int erpret this result as normal/abnormal . [facility] HospitalRglsiqaRKBXKOACAE3775-70-89 12:55:00 Test Item Value Reference Range Interpretation Comments Basophils (test code = 0.3 See_Comment [Aut omated message] The Basophils) system which ge nerated this result tra nsmitted reference range : <=1.0. The reference r markus was not used to int erpret this result as normal/abnormal . [facility] HospitalSoglyzlWZYFFLLSQA2804-97-73 12:55:00 Test Item Value Reference Range Interpretation Comments Lymphocytes # (test code = Lymphocytes 2.3 1.0-5.5 #) [facility] HospitalEakoghxQKVCNHEENC9636-25-30 12:55:00 Test Item Value Reference Range Interpretation Comments Segs-Bands # (test code = Segs-Bands #) 7.0 1.5-8.1 [facility] HospitalJlzpkgfZPYGUSKEOV9897-35-01 12:55:00 Test Item Value Reference Range Interpretation Comments Eosinophils (test code = 0.3 See_Comment [A utomated message] The Eosinophils) system which ge nerated this result tra nsmitted reference range : <=4.0. The reference r markus was not used to int erpret this result as normal/abnormal . [facility] HospitalFkqblwhXBBMMDWMNZ6916-83-89 12:55:00 Test Item Value Reference Range Interpretation Comments Eosinophils # (test code 0.0 See_Comment [A utomated message] The = Eosinophils #) system whic h generated this result tra nsmitted reference range : <=0.5. The reference r markus was not used to int erpret this result as normal/abnormal . [facility] HospitalImfumgeVZKOROQOGC5557-93-45 12:55:00 Test Item Value Reference Range Interpretation Comments Basophils # (test code 0.0 See_Comment [Aut omated message] The = Basophils #) system which generated this result tra nsmitted reference range : <=0.2. The reference r markus was not used to int erpret this result as normal/abnormal . [facility] HospitalMioqlokAIXBDKJGTX8306-65-38 12:55:00 Test Item Value Reference Range Interpretation Comments Monocytes (test code = Monocytes) 4.6 2.0-12.0 [facility] HospitalFjotdusERYZMYUGJF9643-23-48 12:55:00 Test Item Value Reference Range Interpretation Comments Lymphocytes (test code = Lymphocytes) 23.4 20.0-40.0 [facility] HospitalZbrnthxCNWOAKHUTO0666-52-62 12:55:00 Test Item Value Reference Range Interpretation Comments Segs (test code = Segs) 71.4 45.0-75.0 [facility] HospitalZwqdmfqGKJDWAQTRI8218-11-15 12:55:00 Test Item Value Reference Range Interpretation Comments INR (test code = INR) 1.08 0.85-1.17 [facility] HospitalOwdsmziNWEEKICXZH4503-81-16 12:55:00 Test Item Value Reference Range Interpretation Comments PTT (test code = PTT) 28.7 s 22.9-35.8 [facility] HospitalOhzlpwtFAQNSYHOIU4503-92-83 12:55:00 Test Item Value Reference Range Interpretation Comments PT (test code = PT) 14.0 s 12.0-14.7 [facility] HospitalJblcbdhKXTNIPRWAP8525-54-77 12:55:00 Test Item Value Reference Range Interpretation Comments Hct (test code = Hct) 45.4 36.0-48.0 [facility] HospitalLghowuaAFGQDGCYGF1256-08-05 12:55:00 Test Item Value Reference Range Interpretation Comments MCV (test code = MCV) 94.6 80.0-98.0 [facility] HospitalUznjgxqJNSHKTKSZN5553-59-36 12:55:00 Test Item Value Reference Range Interpretation Comments RBC (test code = RBC) 4.80 4.20-5.40 [facility] HospitalVcirbxlDBTFCRRTFL5590-52-81 12:55:00 Test Item Value Reference Range Interpretation Comments Hgb (test code = Hgb) 15.2 12.0-16.0 [facility] HospitalMxfmzhgCQMWNPXSTT3955-38-82 12:55:00 Test Item Value Reference Range Interpretation Comments WBC (test code = WBC) 9.9 3.7-10.4 [facility] HospitalTonxayuPPVOYKDLOY8392-58-26 12:55:00 Test Item Value Reference Range Interpretation Comments Platelet (test code = Platelet) 256 133-450 [facility] HospitalXfhyjtkEALMQLQHWS0922-93-09 12:55:00 Test Item Value Reference Range Interpretation Comments MPV (test code = MPV) 7.5 7.4-10.4 [facility] HospitalVkhryheWJMQGILDXP7038-55-85 12:55:00 Test Item Value Reference Range Interpretation Comments RDW (test code = RDW) 13.7 11.5-14.5 [facility]CkouoaqRNYJQNLLKA1888-28-71 12:55:00 Test Item Value Reference Range Interpretation Comments MCH (test code = MCH) 31.7 pg 27.0-31.0 [facility] CpsryzeOPKETAFXJY7249-32-39 12:55:00 Test Item Value Reference Range Interpretation Comments MCHC (test code = MCHC) 33.5 32.0-36.0 [facility] UgmqqvtUVQASNIKVG0288-00-84 12:55:00 Test Item Value Reference Range Interpretation Comments CDC HIV 4th GEN (test Negative (03/09/14 6:55 code = CDC HIV 4th AM) GEN) [facility] AND [id number] 12:55:00 Test Item Value Reference Range Interpretation Comments UA Blood (test code = Negative (03/09/14 6:55 UA Blood) AM) [facility] AND [id number] 12:55:00 Test Item Value Reference Range Interpretation Comments UA Glucose (test code Negative (03/09/14 6:55 = UA Glucose) AM) [facility] AND [id number] 12:55:00 Test Item Value Reference Range Interpretation Comments UA Ketones (test code Negative *NA*(03/09/14 = UA Ketones) 6:55 AM) [facility] AND [id number] 12:55:00 Test Item Value Reference Range Interpretation Comments UA Bili (test code = Negative *NA*(03/09/14 UA Bili) 6:55 AM) [facility] AND [id number] 12:55:00 Test Item Value Reference Range Interpretation Comments UA Leuk Est (test code Large *ABN*(03/09/14 = UA Leuk Est) 6:55 AM) [facility] AND [id number] 12:55:00 Test Item Value Reference Range Interpretation Comments UA Urobilinogen (test code = UA 1.0 0.1-1.0 Urobilinogen) [facility] AND [id number] 12:55:00 Test Item Value Reference Range Interpretation Comments UA Nitrite (test code Negative (03/09/14 6:55 = UA Nitrite) AM) [facility] AND [id number] 12:55:00 Test Item Value Reference Range Interpretation Comments UA Spec Grav (test code = UA Spec 1.015 1 Grav) [facility] TAMMIE [id number] 12:55:00 Test Item Value Reference Range Interpretation Comments UA pH (test code = UA pH) 7.5 1 5.0-8.0 [facility] AND [id number] 12:55:00 Test Item Value Reference Range Interpretation Comments UA Protein (test code Negative (03/09/14 6:55 = UA Protein) AM) [facility]2014-11-09 12:55:00 Test Item Value Reference Range Interpretation Comments UA Turbidity (test code = Clear (03/09/14 6:55 UA Turbidity) AM) [facility]MyehehpJUDNUICLVEHR5562-47-84 16:00:00 Test Item Value Reference Range Interpretation Comments Potassium Lvl (test code = Potassium 2.9 3.5-5.1 Lvl) [facility]VfvezefGHHNMWEIOPPV1380-94-74 16:00:00 Test Item Value Reference Range Interpretation Comments Creatinine Lvl (test code = Creatinine 0.9 0.5-1.4 Lvl) [facility]SsmvxhmRTPJNVQGSGHE9428-80-93 16:00:00 Test Item Value Reference Range Interpretation Comments Sodium Lvl (test code = Sodium Lvl) 143 135-145 [facility]CgbbazuHWLCLCGNKXNY7481-63-86 16:00:00 Test Item Value Reference Range Interpretation Comments BUN (test code = BUN) 11 7-22 [facility]PoxvzgkKWFBVTVTZBQV8823-33-02 16:00:00 Test Item Value Reference Range Interpretation Comments Glucose Lvl (test code = Glucose Lvl) 89 70-99 [facility]NiniyqzILBKBHEENEEY1117-65-50 16:00:00 Test Item Value Reference Range Interpretation Comments AST (test code = AST) 13 See_Comment [Auto mated message] The system which ge nerated this result transmit francine reference range : <=37. The reference range was not used to interpr et this result as angel l/abnormal. [facility]BljvedmWTLPQAHPBIMW4319-92-95 16:00:00 Test Item Value Reference Range Interpretation Comments Alk Phos (test code = Alk Phos) 76 39-136 [facility]GmuuiixUHZXSLMXIQTK3962-56-72 16:00:00 Test Item Value Reference Range Interpretation Comments Bili Total (test code = Bili Total) 0.4 0.2-1.3 [facility]RdujamkCGGJVLBWSNUM7526-41-21 16:00:00 Test Item Value Reference Range Interpretation Comments Globulin (test code = Globulin) 2.9 2.0-4.0 [facility]OffxejtSNWOEHCSLYPG3441-33-16 16:00:00 Test Item Value Reference Range Interpretation Comments A/G Ratio (test code = A/G Ratio) 1.2 0.7-1.6 [facility]ZznltmsIBNRUTZGYTUL8763-90-26 16:00:00 Test Item Value Reference Range Interpretation Comments ALT (test code = ALT) 16 See_Comment [Auto mated message] The system which ge nerated this result transmit francine reference range : <=65. The reference range was not used to interpr et this result as angel l/abnormal. [facility] OaklandUvxiovyXSTNKQCODAZM3879-46-53 16:00:00 Test Item Value Reference Range Interpretation Comments B/C Ratio (test code = B/C Ratio) 12 6-25 [facility] OaklandZyeajtqFYPHUISGZYHH7309-13-10 16:00:00 Test Item Value Reference Range Interpretation Comments Albumin Lvl (test code = Albumin Lvl) 3.6 3.5-5.0 [facility]PpauoivRNRIMHFJWWHU3977-69-37 16:00:00 Test Item Value Reference Range Interpretation Comments Total Protein (test code = Total 6.5 6.4-8.4 Protein) [facility]BqxtnaeNQNMUSUSEHLY8647-97-49 16:00:00 Test Item Value Reference Range Interpretation Comments CO2 (test code = CO2) 20 24-32 [facility]OorvldgPIVGIYVUDXKS2009-60-34 16:00:00 Test Item Value Reference Range Interpretation Comments Chloride Lvl (test code = Chloride Lvl) 109 95-109 [facility] OaklandBpbkkpsRZTQXBVXECJJ0270-70-31 16:00:00 Test Item Value Reference Range Interpretation Comments AGAP (test code = AGAP) 16.9 10.0-20.0 [facility]VrexrxdKPNSBTZMLVPY9922-83-93 16:00:00 Test Item Value Reference Range Interpretation Comments Calcium Lvl (test code = Calcium Lvl) 8.6 8.5-10.5 [facility]YoqtfebTPVJLDUVYTMR6154-38-07 16:00:00 Test Item Value Reference Range Interpretation Comments eGFR (test code = eGFR) 79 [facility]AdxdjykLNIKDXRPFO0360-85-07 16:00:00 Test Item Value Reference Range Interpretation Comments RBC (test code = RBC) 4.29 4.20-5.40 [facility] HospitalLyfekgoBKIZSQPDDB9737-56-21 16:00:00 Test Item Value Reference Range Interpretation Comments MPV (test code = MPV) 6.7 7.4-10.4 [facility] HospitalZtetdcfMOZSOTBDWZ1955-95-84 16:00:00 Test Item Value Reference Range Interpretation Comments Platelet (test code = Platelet) 337 133-450 [facility] HospitalCvoelscIROKTQVBAH6398-94-12 16:00:00 Test Item Value Reference Range Interpretation Comments RDW (test code = RDW) 14.6 11.5-14.5 [facility] HospitalJokpnxbLQEMRJOPET8289-74-40 16:00:00 Test Item Value Reference Range Interpretation Comments MCHC (test code = MCHC) 33.9 32.0-36.0 [facility] HospitalTtypbiqDIXVXBLLOW5662-93-63 16:00:00 Test Item Value Reference Range Interpretation Comments MCH (test code = MCH) 31.1 pg 27.0-31.0 [facility] HospitalExmhnwbZVGWSZPKJD6471-39-19 16:00:00 Test Item Value Reference Range Interpretation Comments MCV (test code = MCV) 91.6 80.0-98.0 [facility] HospitalQyzjackXGPQTNLMVH9987-15-56 16:00:00 Test Item Value Reference Range Interpretation Comments Hct (test code = Hct) 39.3 36.0-48.0 [facility] HospitalQdhhzvvTFQYERSHTX7933-35-22 16:00:00 Test Item Value Reference Range Interpretation Comments Hgb (test code = Hgb) 13.4 12.0-16.0 [facility] HospitalRqoddguLFBZYLVBXJ3990-21-46 16:00:00 Test Item Value Reference Range Interpretation Comments WBC (test code = WBC) 13.4 3.7-10.4 [facility] HospitalPyktnwkDUBISJGTGA7173-75-21 16:00:00 Test Item Value Reference Range Interpretation Comments Basophils # (test code 0.0 See_Comment [Aut omated message] The = Basophils #) system which generated this result tra nsmitted reference range : <=0.2. The reference r markus was not used to int erpret this result as normal/abnormal . [facility] HospitalCblmvkjDWHYMRHVOI5687-67-72 16:00:00 Test Item Value Reference Range Interpretation Comments Eosinophils # (test code 0.0 See_Comment [A utomated message] The = Eosinophils #) system whic h generated this result tra nsmitted reference range : <=0.5. The reference r markus was not used to int erpret this result as normal/abnormal . [facility] HospitalTgvkajlLQGHWZWWRW8389-05-59 16:00:00 Test Item Value Reference Range Interpretation Comments Monocytes # (test code 0.6 See_Comment [Aut omated message] The = Monocytes #) system which generated this result tra nsmitted reference range : <=0.8. The reference r markus was not used to int erpret this result as normal/abnormal . [facility] HospitalBbmyouxOKICBSCPPU3558-57-08 16:00:00 Test Item Value Reference Range Interpretation Comments Segs-Bands # (test code = Segs-Bands #) 10.1 1.5-8.1 [facility] HospitalHwzsvaeCOBONBMCYX6974-51-67 16:00:00 Test Item Value Reference Range Interpretation Comments Lymphocytes # (test code = Lymphocytes 2.7 1.0-5.5 #) [facility] HospitalUucgayuKOAOEJVGID6424-23-22 16:00:00 Test Item Value Reference Range Interpretation Comments Monocytes (test code = Monocytes) 4.4 2.0-12.0 [facility] HospitalZhoegouTHHBHAZUOM7887-78-30 16:00:00 Test Item Value Reference Range Interpretation Comments Lymphocytes (test code = Lymphocytes) 20.1 20.0-40.0 [facility] HospitalSyokbkmLEJHJDKOAO2088-06-38 16:00:00 Test Item Value Reference Range Interpretation Comments Segs (test code = Segs) 74.9 45.0-75.0 [facility] HospitalWholwyhGLJJKRZWAS3033-71-54 16:00:00 Test Item Value Reference Range Interpretation Comments Eosinophils (test code = 0.3 See_Comment [A utomated message] The Eosinophils) system which ge nerated this result tra nsmitted reference range : <=4.0. The reference r markus was not used to int erpret this result as normal/abnormal . [facility] HospitalInkksvjZHUXVYATTG5643-19-77 16:00:00 Test Item Value Reference Range Interpretation Comments Basophils (test code = 0.3 See_Comment [Aut omated message] The Basophils) system which ge nerated this result tra nsmitted reference range : <=1.0. The reference r markus was not used to int erpret this result as normal/abnormal . [facility] HospitalTqvawfmFOZQCNZSNQ2759-40-21 16:00:00 Test Item Value Reference Range Interpretation Comments Salicylate Lvl (test 6.2 See_Comment [Autom ated message] The code = Salicylate Lvl) mary thompson which generated this result tra nsmitted reference range : <=30.0. The reference r markus was not used to int erpret this result as normal/abnormal . [facility] HospitalGpogseeVZILIAPLJW8151-17-13 16:00:00 Test Item Value Reference Range Interpretation Comments Acetaminoph Lvl (test code = 9 10-20 Acetaminoph Lvl) [facility] HospitalSnjoqcoVNFKAHCTJT5807-41-79 16:00:00 Test Item Value Reference Range Interpretation Comments Ethanol Lvl (test code = Ethanol Lvl) no gt [facility] HospitalBzzavheHKXKDMTAYF5485-85-68 16:00:00 Test Item Value Reference Range Interpretation Comments Etoh (%) (test code = Etoh (%)) no gt [facility] HospitalannDRUG [id number] 15:30:41 Test Item Value Reference Range Interpretation Comments U Cocaine Scr (test Positive *ABN*(01/14/14 code = U Cocaine Scr) 10:30 AM) [facility] HospitalannDR[facility] [id number] 15:30:41 Test Item Value Reference Range Interpretation Comments U Benzodia Scr (test Negative *NA*(01/14/14 code = U Benzodia Scr) 10:30 AM) [facility]annDR[facility] [id number] 15:30:41 Test Item Value Reference Range Interpretation Comments U Lizzy Scr (test code Negative *NA*(01/14/14 = U Lizzy Scr) 10:30 AM) [facility] HermannDR[facility] [id number] 15:30:41 Test Item Value Reference Range Interpretation Comments U Amph Scr (test code Positive *ABN*(01/14/14 = U Amph Scr) 10:30 AM) [facility]ann[facility] [id number] 15:30:41 Test Item Value Reference Range Interpretation Comments UDS Note (test code = See Note 4(01/14/14 UDS Note) 10:30 AM) [facility] HermannDR[facility] [id number] 15:30:41 Test Item Value Reference Range Interpretation Comments U Phencyc Scr (test Negative *NA*(01/14/14 code = U Phencyc Scr) 10:30 AM) [facility] [id number] 15:30:41 Test Item Value Reference Range Interpretation Comments U Cannab Scr (test Negative *NA*(01/14/14 code = U Cannab Scr) 10:30 AM) [facility] [id number] 15:30:41 Test Item Value Reference Range Interpretation Comments U Opiate Scr (test Positive *ABN*(01/14/14 code = U Opiate Scr) 10:30 AM) [facility] [id number] 15:30:00 Test Item Value Reference Range Interpretation Comments UA Urobilinogen (test code = UA 0.2 0.1-1.0 Urobilinogen) [facility] [id number] 15:30:00 Test Item Value Reference Range Interpretation Comments UA Nitrite (test code Negative (01/14/14 10:30 = UA Nitrite) AM) [facility] [id number] 15:30:00 Test Item Value Reference Range Interpretation Comments UA Leuk Est (test Moderate *ABN*(01/14/14 code = UA Leuk Est) 10:30 AM) [facility] [id number] 15:30:00 Test Item Value Reference Range Interpretation Comments UA Sq Epi (test code = UA Sq Epi) Rare /LPF [facility] [id number] 15:30:00 Test Item Value Reference Range Interpretation Comments UA RBC (test code = 0-2 /HPF See_Comment [Automa francine message] The UA RBC) system which ge nerated this result tra nsmitted reference range : <=2. The reference range was not used to interpr et this result as angel l/abnormal. [facility] [id number] 15:30:00 Test Item Value Reference Range Interpretation Comments UA WBC (test code = UA Packed *ABN*(01/14/14 WBC) 10:30 AM) [facility] [id number] 15:30:00 Test Item Value Reference Range Interpretation Comments UA Bacteria (test code = UA Occasional /HPF Bacteria) [facility] [id number] 15:30:00 Test Item Value Reference Range Interpretation Comments UA Bili (test code = Moderate *ABN*(01/14/14 UA Bili) 10:30 AM) [facility] [id number] 15:30:00 Test Item Value Reference Range Interpretation Comments UA Ketones (test code = UA >=80 mg/dL Ketones) [facility] [id number] 15:30:00 Test Item Value Reference Range Interpretation Comments UA Blood (test code = Trace *ABN*(01/14/14 UA Blood) 10:30 AM) [facility] [id number] 15:30:00 Test Item Value Reference Range Interpretation Comments UA Color (test code = Yellow *NA*(01/14/14 UA Color) 10:30 AM) [facility] [id number] 15:30:00 Test Item Value Reference Range Interpretation Comments UA pH (test code = UA pH) 6.0 1 5.0-8.0 [facility] [id number] 15:30:00 Test Item Value Reference Range Interpretation Comments UA Spec Grav (test >=1.030 *ABN*(01/14/14 code = UA Spec Grav) 10:30 AM) [facility] [id number] 15:30:00 Test Item Value Reference Range Interpretation Comments UA Turbidity (test code Slight Cloudy = UA Turbidity) (01/14/14 10:30 AM) [facility] [id number] 15:30:00 Test Item Value Reference Range Interpretation Comments UA Glucose (test code Negative (01/14/14 10:30 = UA Glucose) AM) [facility] [id number] 15:30:00 Test Item Value Reference Range Interpretation Comments UA Protein (test code = Trace *ABN*(01/14/14 UA Protein) 10:30 AM) [facility] [id number] 15:30:00 Test Item Value Reference Range Interpretation Comments U Preg (test code = U Negative (01/14/14 10:30 Preg) AM) [facility] [id number] 04:50:00 Test Item Value Reference Range Interpretation Comments Lipase Lvl (test code = Lipase Lvl) 101 73-393 [facility]CHE[facility] [id number] 04:50:00 Test Item Value Reference Range Interpretation Comments Amylase Lvl (test code = Amylase Lvl) 23 25-115 [facility]2014-09-16 04:50:00 Test Item Value Reference Range Interpretation Comments Alk Phos (test code = Alk Phos) 69 39-136 [facility]2014-09-16 04:50:00 Test Item Value Reference Range Interpretation Comments Bili Total (test code = Bili Total) 0.5 0.2-1.3 [place] [id number] 04:50:00 Test Item Value Reference Range Interpretation Comments AST (test code = AST) 14 See_Comment [Auto mated message] The system which ge nerated this result transmit francine reference range : <=37. The reference range was not used to interpr et this result as angel l/abnormal. [facility]2014-09-16 04:50:00 Test Item Value Reference Range Interpretation Comments Potassium Lvl (test code = Potassium 2.9 3.5-5.1 Lvl) [facility]2014-09-16 04:50:00 Test Item Value Reference Range Interpretation Comments Chloride Lvl (test code = Chloride Lvl) 109 95-109 [facility]2014-09-16 04:50:00 Test Item Value Reference Range Interpretation Comments AGAP (test code = AGAP) 19.9 10.0-20.0 [facility]2014-09-16 04:50:00 Test Item Value Reference Range Interpretation Comments Calcium Lvl (test code = Calcium Lvl) 8.4 8.5-10.5 [place] [id number] 04:50:00 Test Item Value Reference Range Interpretation Comments Total Protein (test code = Total 6.0 6.4-8.4 Protein) [facility]2014-09-16 04:50:00 Test Item Value Reference Range Interpretation Comments Albumin Lvl (test code = Albumin Lvl) 3.3 3.5-5.0 [facility]2014-09-16 04:50:00 Test Item Value Reference Range Interpretation Comments CO2 (test code = CO2) 18 24-32 [place] 800014-09-16 04:50:00 Test Item Value Reference Range Interpretation Comments B/C Ratio (test code = B/C Ratio) 21 6-25 [facility]2014-09-16 04:50:00 Test Item Value Reference Range Interpretation Comments Creatinine Lvl (test code = Creatinine 0.7 0.5-1.4 Lvl) [facility]2014-09-16 04:50:00 Test Item Value Reference Range Interpretation Comments Sodium Lvl (test code = Sodium Lvl) 144 135-145 [facility]2014-09-16 04:50:00 Test Item Value Reference Range Interpretation Comments BUN (test code = BUN) 15 7-22 [place] 800014-09-16 04:50:00 Test Item Value Reference Range Interpretation Comments Glucose Lvl (test code = Glucose Lvl) 95 70-99 [facility]2014-09-16 04:50:00 Test Item Value Reference Range Interpretation Comments ALT (test code = ALT) 14 See_Comment [Auto mated message] The system which ge nerated this result transmit francine reference range : <=65. The reference range was not used to interpr et this result as angel l/abnormal. [facility]2014-09-16 04:50:00 Test Item Value Reference Range Interpretation Comments eGFR (test code = eGFR) 107 [facility]2014-09-16 04:50:00 Test Item Value Reference Range Interpretation Comments A/G Ratio (test code = A/G Ratio) 1.2 0.7-1.6 [facility]2014-09-16 04:50:00 Test Item Value Reference Range Interpretation Comments Globulin (test code = Globulin) 2.7 2.0-4.0 [id number] 03:50:00 Test Item Value Reference Range Interpretation Comments Segs-Bands # (test code = Segs-Bands #) 7.8 1.5-8.1 [id number] 03:50:00 Test Item Value Reference Range Interpretation Comments Lymphocytes # (test code = Lymphocytes 2.4 1.0-5.5 #) [facility]QcjvxovJTODQADKBQ9461-63-01 03:50:00 Test Item Value Reference Range Interpretation Comments Monocytes (test code = Monocytes) 4.6 2.0-12.0 [id number] 03:50:00 Test Item Value Reference Range Interpretation Comments Monocytes # (test code 0.5 See_Comment [Aut omated message] The = Monocytes #) system which generated this result tra nsmitted reference range : <=0.8. The reference r markus was not used to int erpret this result as normal/abnormal . [facility] H[id number] 03:50:00 Test Item Value Reference Range Interpretation Comments Lymphocytes (test code = Lymphocytes) 22.4 20.0-40.0 [facility] HospitalCxiuxtvNWDLBVIWQJ0588-28-62 03:50:00 Test Item Value Reference Range Interpretation Comments Basophils # (test code 0.0 See_Comment [Aut omated message] The = Basophils #) system which generated this result tra nsmitted reference range : <=0.2. The reference r markus was not used to int erpret this result as normal/abnormal . [facility] Hospit[id number] 03:50:00 Test Item Value Reference Range Interpretation Comments Eosinophils # (test code 0.1 See_Comment [A utomated message] The = Eosinophils #) system whic h generated this result tra nsmitted reference range : <=0.5. The reference r markus was not used to int erpret this result as normal/abnormal . [facility] HospitalQqqfthkKAPHSAHSGN1470-11-31 03:50:00 Test Item Value Reference Range Interpretation Comments Eosinophils (test code = 0.6 See_Comment [A utomated message] The Eosinophils) system which ge nerated this result tra nsmitted reference range : <=4.0. The reference r markus was not used to int erpret this result as normal/abnormal . [facility] HospitalSksiawjEVJQCWAPLF2781-29-37 03:50:00 Test Item Value Reference Range Interpretation Comments Basophils (test code = 0.3 See_Comment [Aut omated message] The Basophils) system which ge nerated this result tra nsmitted reference range : <=1.0. The reference r markus was not used to int erpret this result as normal/abnormal . [facility] H[id number] 03:50:00 Test Item Value Reference Range Interpretation Comments Segs (test code = Segs) 72.1 45.0-75.0 [facility] HospitalQ[id number] 03:50:00 Test Item Value Reference Range Interpretation Comments MPV (test code = MPV) 7.0 7.4-10.4 [facility] H[id number] 03:50:00 Test Item Value Reference Range Interpretation Comments Platelet (test code = Platelet) 407 133-450 [facility] HospitalEqkkmfzBMPUDMKJFF3801-92-08 03:50:00 Test Item Value Reference Range Interpretation Comments RDW (test code = RDW) 14.8 11.5-14.5 [facility] HospitalMwrfhrxUXYDASCKDZ5975-81-06 03:50:00 Test Item Value Reference Range Interpretation Comments MCHC (test code = MCHC) 33.5 32.0-36.0 [facility] HospitalCarsegiSPOYZFVXYS6725-56-03 03:50:00 Test Item Value Reference Range Interpretation Comments MCH (test code = MCH) 30.7 pg 27.0-31.0 [facility] HospitalYllmnffCXNZDZVYPO6579-07-08 03:50:00 Test Item Value Reference Range Interpretation Comments Hct (test code = Hct) 41.5 36.0-48.0 [facility] H[id number] 03:50:00 Test Item Value Reference Range Interpretation Comments RBC (test code = RBC) 4.53 4.20-5.40 [facility] HospitalKakxfhaWZCPIDGRFJ2717-43-32 03:50:00 Test Item Value Reference Range Interpretation Comments Hgb (test code = Hgb) 13.9 12.0-16.0 [facility] HospitalHiwnihaJIWDDCGZSH8081-57-23 03:50:00 Test Item Value Reference Range Interpretation Comments WBC (test code = WBC) 10.8 3.7-10.4 [facility] HospitalXewwlbiWASTBARVHJ9227-16-91 03:50:00 Test Item Value Reference Range Interpretation Comments MCV (test code = MCV) 91.6 80.0-98.0 [facility]
[2021-07-04] MEDS ORDERED: ONDANSETRON 4 MG/2 ML VIAL ONE (22:25)
[2021-07-04] MEDS ORDERED: HYDROMORPHONE HCL 1 MG/ML INJ ONE ×2 (22:25→23:10)
[2021-07-04 22:53] LABS: Absolute Lymphocytes (CBC) 1.4 K/uL (0.7-4.9); Lymphocytes % 17.5 % (15.3-44.8); MPV 6.2 fL (7.6-11.3); RBC Red Blood Cell Count 4.04 M/uL (3.86-4.86)
[2021-07-04 23:01] LABS: Albumin 3.5 g/dL (3.4-5.0); Bilirubin Direct 0.1 mg/dL (0-0.2); Bilirubin Total 0.4 mg/dL (0.2-1.0); Protein, Total 6.8 g/dL (6.4-8.2)
--- NOTE | 2021-07-05 00:36 | EDPHYS ---
Physician Documentation [facility] Name: Angela Rodriguez Age: 50 yrs Sex: Female : 1970 Arrival Date: 07/04/2021 Time: 21:36 Bed 8 Private MD: ED Physician Parveen Gracia HPI: 07/04 22:15 This 50 yrs old Female presents to ER via Wheelchair with complaints of Abdominal pm1 Cramping. 22:15 The patient presents with abdominal pain lateral bilaterally to umbilical area. Onset: pm1 The symptoms/episode began/occurred today, 5 hour(s) ago. The symptoms do not radiate. Associated signs and symptoms: Pertinent positives: constipation, nausea, Pertinent negatives: chest pain, shortness of breath, vomiting. The symptoms are described as crampy. Modifying factors: The symptoms are alleviated by nothing, the symptoms are aggravated by nothing. Severity of pain: in the emergency department the pain is actually worse. The patient has experienced similar episodes in the past, multiple times. The patient has not recently seen a physician. 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 - Hysterectomy as6 Historical: - Allergies: 21:59 Ciprofloxacin; as6 21:59 Phenergan; as6 - Home Meds: 21:59 Cholestyramine Light 4 gram oral powd 1 scoop daily [Active]; phenazopyridine 200 mg as6 Oral tab 1 tab 3 times per day [Active]; pantoprazole 40 mg oral grps 1 packet 2 times per day [Active]; escitalopram oxalate 10 mg oral tab 1 tab once daily [Active]; estradiol 1 mg Oral tab 1 tab once daily [Active]; fluconazole 150 mg Oral tab 1 tab [Active]; gabapentin 300 mg oral Tb24 1 tab once daily [Active]; montelukast 10 mg oral tab 1 tab once daily [Active]; buspirone 10 mg Oral tab 1 tab 3 times per day [Active]; ferrous sulfate 325 mg (65 mg iron) Oral TbEC 325 mg twice a day [Active]; cholecalciferol (vitamin D3) 50 mcg (2,000 unit) oral cap daily [Active]; clonazepam 1 mg Oral tab 1 tab 3 times per day [Active]; - PMHx: 21:59 adrenal insufficiency; avascular necrosis; Bipolar disorder; Chronic pain; Crohn's; as6 Endometrosis; Hypothyroidism; - PSHx: 21:59 section; Total abdominal hysterectomy; Cholecystectomy; knee; wrist; bowel as6 resection; - Immunization history:: Client reports receiving the 1st dose of the Covid vaccine. - Social history:: Smoking status: Patient reports the use of cigarette tobacco products, smokes one-half pack cigarettes per day. ROS: 22:15 Constitutional: Negative for fever, chills, and weight loss, Cardiovascular: Negative pm1 for chest pain, palpitations, and edema, Respiratory: Negative for shortness of breath, cough, wheezing, and pleuritic chest pain. 22:15 Back: Negative for injury and pain, MS/Extremity: Negative for injury and deformity, Skin: Negative for injury, rash, and discoloration, Neuro: Negative for headache, weakness, numbness, tingling, and seizure. 22:15 Abdomen/GI: Positive for abdominal pain, nausea, constipation, Negative for vomiting, diarrhea. 22:15 All other systems are negative. Exam: 22:15 Constitutional: This is a well developed, well nourished patient who is awake, alert, pm1 and in no acute distress. Head/Face: Normocephalic, atraumatic. 22:15 Back: No spinal tenderness. No costovertebral tenderness. Full range of motion. Skin: Warm, dry with normal turgor. Normal color with no rashes, no lesions, and no evidence of cellulitis. MS/ Extremity: Pulses equal, no cyanosis. Neurovascular intact. Full, normal range of motion. 22:15 Cardiovascular: Exam negative for acute changes, Rate: normal, Rhythm: regular, Pulses: no pulse deficits are appreciated, Heart sounds: normal, normal S1and S2. 22:15 Respiratory: Exam negative for acute changes, respiratory distress, shortness of breath, Breath sounds: are clear throughout. 22:15 Abdomen/GI: Inspection: scar(s), are noted in the right upper quadrant, Palpation: soft, in all quadrants, mild abdominal tenderness, in the right upper quadrant and left upper quadrant. Vital Signs: 21:56 BP 139 / 101; Pulse 96; Resp 24 S; Temp 98.7(O); Pulse Ox 95% on R/A; Weight 72.57 kg as6 (R); Height 5 ft. 2 in. (157.48 cm) (R); Pain 10/10; 22:34 BP 129 / 93; Pulse 83; Resp 18; Pulse Ox 93% on R/A; Pain 10/10; as6 23:10 BP 115 / 80; Pulse 76; Resp 18 S; Pulse Ox 93% on R/A; as6 07/05 01:52 BP 111 / 80; Pulse 76; Resp 18; Pulse Ox 96% on R/A; Pain 7/10; tw5 01:52 Pain 7/10; tw5 07/04 21:56 Body Mass Index 29.26 (72.57 kg, 157.48 cm) as6 MDM: 07/04 22:14 Patient medically screened. pm1 07/05 00:25 ED course: Patient without vomiting. Discussed NGtube with patient and she refused. pm1 00:25 Counseling: I had a detailed discussion with the patient and/or guardian regarding: the pm1 historical points, exam findings, and any diagnostic results supporting the discharge/admit diagnosis, lab results, radiology results, the need for further work-up and treatment in the hospital, Patient would like to be transferred to [facility] for further treatment and evaluation. Dr. Lopes recently performed colonoscopy on her on Monday and her general surgeon, Dr. Sanchez, who performed her bowel resections due to [facility]' practice there. 01:04 Data reviewed: vital signs. pm1 01:09 Physician consultation: MD Sanchez was contacted at 01:10, regarding consult, patient's pm1 condition, and will see patient. 01:34 Physician consultation: MD Jones was contacted at 01:34, regarding regarding transfer, pm1 patient's condition, and will see patient. 07/04 21:54 Order name: Basic Metabolic Panel as6 07/04 21:54 Order name: CBC with Diff; Complete Time: 23:07 as6 07/04 21:54 Order name: Hepatic Function as6 07/04 21:54 Order name: Lipase; Complete Time: 23:07 as6 07/04 21:54 Order name: Basic Metabolic Panel; Complete Time: 23:07 EDMS 07/04 21:54 Order name: Liver (Hepatic) Function; Complete Time: 23:07 EDMS 07/04 22:15 Order name: CT Abd/Pelvis - IV Contrast Only pm1 07/05 00:32 Order name: COVID-19 SARS RT PCR (Document "Date of Onset" if Symptomatic) mw2 07/05 00:32 Order name: SARS-COV-2 RT PCR; Complete Time: 01:24 EDMS 07/04 21:54 Order name: IV Saline Lock; Complete Time: 22:29 as6 07/04 21:54 Order name: Labs collected and sent; Complete Time: 22:29 as6 07/05 01:42 Order name: NPO; Complete Time: 01:43 pm1 Administered Medications: 07/04 22:29 Drug: Zofran (Ondansetron) 4 mg Route: IVP; Site: left forearm; as6 07/05 00:24 Follow up: Response: No adverse reaction 07/04 22:33 Drug: Dilaudid (HYDROmorphone) 1 mg Route: IVP; Site: left forearm; as6 07/05 00:23 Follow up: Response: No adverse reaction; RASS: Alert and Calm (0) as6 07/04 23:09 Drug: Dilaudid (HYDROmorphone) 1 mg Route: IVP; Site: left forearm; as6 07/05 00:24 Follow up: Response: No adverse reaction; RASS: Alert and Calm (0) as6 01:20 Drug: Zofran (Ondansetron) 4 mg Route: IVP; Site: left forearm; as6 01:52 Follow up: Response: No adverse reaction tw5 01:21 Drug: Dilaudid (HYDROmorphone) 1 mg Route: IVP; Site: left forearm; as6 01:52 Follow up: Pain 7/10 Adult; Response: No adverse reaction; Pain is decreased; RASS: tw5 Alert and Calm (0) 01:52 Drug: NS 0.9% 1000 ml Route: IV; Rate: 125 ml/hr; Site: left forearm; tw5 03:09 Follow up: IV Status: Infusion continued upon transfer as6 Disposition: 03:24 Co-signature as Attending Physician, Parveen Gracia MD. mh7 Disposition Summary: 07/05/21 00:34 Transfer Ordered Transfer Location: [facility] pm1 Reason: Private Physician at Transferring Hospital pm1 Condition: Stable pm1 Problem: new pm1 Symptoms: have improved pm1 Accepting Physician: (07/05/21 03:10) tw5 Diagnosis - Distal small bowel obstruction pm1 Forms: - Medication Reconciliation Form pm1 - SBAR form pm1 Signatures: Dispatcher [employer] EDSergio Tracy, DIOR SYSTEMS CONSULTANT pm1 Parveen Gracia MD MD 7 Richelle Weber tw5 Elmo Thomas, RN RN as6 Corrections: (The following items were deleted from the chart) 00:26 07/04 22:15 Associated signs and symptoms: Pertinent positives: nausea and vomiting, pm1 constipation, Pertinent negatives: chest pain, shortness of breath, pm1 07/05 00:26 03 22:15 Abdomen/GI: Positive for abdominal pain, nausea and vomiting, constipation, pm1 Negative for diarrhea, pm1 07/05 03:10 00:34 pm1 tw5
--- NOTE | 2021-07-05 00:36 | ER ---
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 Coronavirus screen: At this time, the client does not indicate any symptoms associated with coronavirus-19. Ebola Screen: No symptoms or risks identified at this time. Initial Sepsis Screen: Does the patient meet any 2 criteria? No. Patient's initial sepsis screen is negative. Does the patient have a suspected source of infection? No. Patient's initial sepsis screen is negative. Risk Assessment: Do you want to hurt yourself or someone else? Patient reports no desire to harm self or others. Onset of symptoms was July 04, 2021. 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/A - Hysterectomy as6 Historical: - Allergies: 21:59 Ciprofloxacin; as6 21:59 Phenergan; as6 - Home Meds: 21:59 Cholestyramine Light 4 gram oral powd 1 scoop daily [Active]; phenazopyridine 200 mg as6 Oral tab 1 tab 3 times per day [Active]; pantoprazole 40 mg oral grps 1 packet 2 times per day [Active]; escitalopram oxalate 10 mg oral tab 1 tab once daily [Active]; estradiol 1 mg Oral tab 1 tab once daily [Active]; fluconazole 150 mg Oral tab 1 tab [Active]; gabapentin 300 mg oral Tb24 1 tab once daily [Active]; montelukast 10 mg oral tab 1 tab once daily [Active]; buspirone 10 mg Oral tab 1 tab 3 times per day [Active]; ferrous sulfate 325 mg (65 mg iron) Oral TbEC 325 mg twice a day [Active]; cholecalciferol (vitamin D3) 50 mcg (2,000 unit) oral cap daily [Active]; clonazepam 1 mg Oral tab 1 tab 3 times per day [Active]; - PMHx: 21:59 adrenal insufficiency; avascular necrosis; Bipolar disorder; Chronic pain; Crohn's; as6 Endometrosis; Hypothyroidism; - PSHx: 21:59 section; Total abdominal hysterectomy; Cholecystectomy; knee; wrist; bowel as6 resection; - Immunization history:: Client reports receiving the 1st dose of the Covid vaccine. - Social history:: Smoking status: Patient reports the use of cigarette tobacco products, smokes one-half pack cigarettes per day. Screenin:15 Abuse screen: Denies threats or abuse. Denies injuries from another. Nutritional as6 screening: No deficits noted. Tuberculosis screening: No symptoms or risk factors identified. Fall Risk None identified. Assessment: 22:10 General: Appears uncomfortable, Behavior is cooperative, crying, restless. Pain: as6 Complains of pain in abdomen Pain currently is 10 out of 10 on a pain scale. Quality of pain is described as crampy, Is intermittent. GI: Bowel sounds hypoactive in right upper quadrant, left upper quadrant, right lower quadrant and left lower quadrant Abdomen is tender to palpation Reports lower abdominal pain, upper abdominal pain, constipation, cramping, nausea, vomiting. 22:34 Pain: Pain currently is 10 out of 10 on a pain scale. as6 22:34 General: Reports " I have had a bowel obstruction before, this is what this pain feels as6 like.". 23:10 Pain: Complains of pain in abdomen Pain currently is 8 out of 10 on a pain scale. as6 23:10 General: Appears in no apparent distress. as6 07/05 01:52 Reassessment: Patient appears in no apparent distress at this time. Patient states tw5 feeling better. Patient states symptoms have improved. Vital Signs: 07/04 21:56 BP 139 / 101; Pulse 96; Resp 24 S; Temp 98.7(O); Pulse Ox 95% on R/A; Weight 72.57 kg as6 (R); Height 5 ft. 2 in. (157.48 cm) (R); Pain 10/10; 22:34 BP 129 / 93; Pulse 83; Resp 18; Pulse Ox 93% on R/A; Pain 10/10; as6 23:10 BP 115 / 80; Pulse 76; Resp 18 S; Pulse Ox 93% on R/A; as6 07/05 01:52 BP 111 / 80; Pulse 76; Resp 18; Pulse Ox 96% on R/A; Pain 7/10; tw5 01:52 Pain 7/10; tw5 03 21:56 Body Mass Index 29.26 (72.57 kg, 157.48 cm) as6 ED Course: 07/04 21:36 Patient arrived in ED. jj6 21:49 Sergio Pablo EARLY CHILDHOOD EDUCATION COORDINATOR is PHCP. pm1 21:49 Parveen Gracia MD is Attending Physician. pm1 21:49 Elmo Thomas RN is Primary Nurse. as6 21:59 Triage completed. as6 22:08 Arm band placed on. as6 22:15 Placed in gown. Bed in low position. Call light in reach. Side rails up X2. Adult w/ as6 patient. Pulse ox on. NIBP on. Warm blanket given. 22:28 Initial lab(s) drawn, by ak, sent to lab. Inserted saline lock: 20 gauge in left as6 forearm, using aseptic technique. Blood collected. Missed attempt(s): 20 gauge Bleeding controlled, band aid applied, catheter tip intact. 22:29 CBC with Diff Sent. as6 22:29 Lipase Sent. as6 22:29 Basic Metabolic Panel Sent. as6 22:29 Hepatic Function Sent. as6 22:29 Liver (Hepatic) Function Sent. as6 22:29 Basic Metabolic Panel Sent. as6 23:32 CT Abd/Pelvis - IV Contrast Only In Process Unspecified. EDMS 07/05 00:30 initiated a transfer with Samira Johnson from [facility]. mw2 00:39 SARS-COV-2 RT PCR Sent. tw5 00:40 COVID-19 SARS RT PCR (Document "Date of Onset" if Symptomatic) Sent. tw5 01:41 administrative approval given by Samira Johnson/ patient has been accepted to [address] bed 1509/Dr. Purcell accepted the patient in transfer/report to be called to [phone]. 03:09 No provider procedures requiring assistance completed. Patient transferred, IV remains as6 in place. Administered Medications: 07/04 22:29 Drug: Zofran (Ondansetron) 4 mg Route: IVP; Site: left forearm; as6 07/05 00:24 Follow up: Response: No adverse reaction as6 07/04 22:33 Drug: Dilaudid (HYDROmorphone) 1 mg Route: IVP; Site: left forearm; as6 07/05 00:23 Follow up: Response: No adverse reaction; RASS: Alert and Calm (0) as6 07/04 23:09 Drug: Dilaudid (HYDROmorphone) 1 mg Route: IVP; Site: left forearm; as6 07/05 00:24 Follow up: Response: No adverse reaction; RASS: Alert and Calm (0) as6 01:20 Drug: Zofran (Ondansetron) 4 mg Route: IVP; Site: left forearm; as6 01:52 Follow up: Response: No adverse reaction tw5 01:21 Drug: Dilaudid (HYDROmorphone) 1 mg Route: IVP; Site: left forearm; as6 01:52 Follow up: Pain 7/10 Adult; Response: No adverse reaction; Pain is decreased; RASS: tw5 Alert and Calm (0) 01:52 Drug: NS 0.9% 1000 ml Route: IV; Rate: 125 ml/hr; Site: left forearm; tw5 03:09 Follow up: IV Status: Infusion continued upon transfer as6 Outcome: 00:34 ER care complete, transfer ordered by . pm1 03:09 Transferred by ground EMS to [facility], Transfer form completed. as6 X-rays sent w/ patient. 03:09 Condition: stable 03:09 Instructed on the need for transfer. 03:10 Patient left the ED. tw5 Signatures: Dispatcher [employer] EDMS Sergio Pablo, DIOR EARLY CHILDHOOD EDUCATION COORDINATOR pm1 Bradley Anglin mw2 Richelle Weber tw5 Patricia Garcia jj6 Elmo Thomas, RN RN as6
[2021-07-05] MEDS ORDERED: HYDROMORPHONE HCL 1 MG/ML INJ ONE (01:19)
[2021-07-05] MEDS ORDERED: ONDANSETRON 4 MG/2 ML VIAL ONE (01:19)
[2021-07-05] MEDS ORDERED: NA CHLORIDE 0.9% 1,000 ML ONE (01:47)
[2021-07-05 03:36] VITALS: TEMP 98.7
[2021-07-05 03:42] VITALS: BP 111/80; O2SAT 96
--- NOTE | 2021-07-05 12:57 | RAD REPORT ---
EXAM DESCRIPTION: CT - Abdomen Pelvis W Contrast - 07/05/2021 5:23 am CLINICAL HISTORY: 50 years Female ABD PAIN TECHNIQUE: Contiguous axial images obtained through the abdomen and pelvis following administration of intravenous contrast. Coronal and sagittal reformatted images provided. This CT exam was performed according to our departmental dose-optimization program, which includes on e or more of the following dose reduction techniques: automated exposure control, adjustment of the m A and/or kV according to patient size, and/or use of iterative reconstruction technique. COMPARISON: 05/26/2021 FINDINGS: Patient again seen to be status post prior right partial colectomy with ileocolic anastomo sis in the right mid abdomen, deep to the stimulator device in the subcutaneous fat. Best seen on ser ies 501 images 36-40 is focal mural thickening in the bowel adjacent to the anastomotic sutures, poss ibly resulting in a stricture. This focal mural thickening was present on the prior exam. However, on the current examination, it appears to be related to an at least partial small bowel obstruction. Di lated loops of small bowel measure up to 3.7 cm and there is mesenteric edema in the right lower quad rant. There is liquid stool throughout the colon, which is not collapsed. No colonic inflammation. Sm all amount of free fluid without pneumatosis or free air. Minimal bibasilar atelectasis. Prior cholecystectomy likely accounts for biliary prominence. The liver, pancreas, spleen, adrenal glands, and urinary bladder are normal. Bilateral renal cysts. N o abdominal aortic aneurysm. Chronic degenerative changes in the spine without acute fracture. IMPRESSION: Prior partial colectomy with ileocolic anastomosis in the right mid abdomen again noted. Also again seen is focal mural thickening in the bowel adjacent to the anastomotic sutures, possibly resulting in a stricture. There does appear to be an at least partial distal small bowel obstruction in the right mid abdomen with free fluid. No pneumatosis or free air. This obstruction is thought to be partial due to liquid stool throughout the colon, which is not linette apsed. Surgical evaluation recommended. Electronically signed by: Kina Jesus MD 07/04/2021 11:53 PM [employer] DISPATCHER Due to temporary technical issues with the PACS/Fluency reporting system, reports are being signed by the in house radiologist without review as a courtesy to ensure prompt reporting. The interpreting r adiologist is fully responsible for the content of the report.
== END 2021-07-05 03:10 | disposition short-term general hospital (02) ==
LOC: ER 21:33
DX: K56.609 Unspecified intestinal obstruction, unspecified as to partial versus complete obstruction (principal); F17.210 Nicotine dependence, cigarettes, uncomplicated; E03.9 Hypothyroidism, unspecified; F31.9 Bipolar disorder, unspecified; K50.90 Crohn's disease, unspecified, without complications; Z20.822 Contact with and (suspected) exposure to COVID-19; Z88.1 Allergy status to other antibiotic agents; Z88.8 Allergy status to other drugs, medicaments and biological substances
CPT/HCPCS: 85025; 80048; 36415; 80076; 83690; 74177; U0003; Q9967; J1170 ×3; J7030; J2405 ×2; 96361; 96374; 96375; 99285

== ENCOUNTER 2021-09-07 13:38 | Emergency (ER) | payer OTHER ==
--- OUTSIDE RECORDS SUMMARY | 2021-09-07 13:52 | XMS REPORT | Continuity of Care Document ---
:1970 Author Organization [facility] t Address [address] [place] [address] Care Team Providers Name Role Phone SONIA RETANA Primary Care Physician Unavailable NISH Attending Clinician Unavailable DR SHAILESH Attending Clinician Unavailable MARQUISE DASILVA Attending Clinician Unavailable NISH Attending Clinician Unavailable Vivek Attending Clinician Unavailable MACK Attending Clinician Unavailable GABRIELA GAY Attending Clinician Unavailable MACARIO Attending Clinician Unavailable Priti FIELDS Attending Clinician Unavailable Brenda Lei MD Attending Clinician Pooja Forbes MD Attending Clinician Paul Drake NP Attending Clinician CHEMA DODSON Attending Clinician Unavailable Chema Dodson MD Attending Clinician 1.5, Jase Mr Attending Clinician Unavailable Lynne LOPEZ Attending Clinician Unavailable Lynne Lopez Attending Clinician Fabian Attending Clinician Unavailable Guillermina Jerry MA Attending Clinician Unavailable John RADER Attending Clinician Gilson VERA Attending Clinician Unavailable Adryan VERA Attending Clinician Unavailable JOHN Attending Clinician Unavailable Nish MOTLEY Attending Clinician CHEMA DODSON Attending Clinician Unavailable Elle Attending Clinician Unavailable Chey_Joan Attending Clinician Unavailable Yessy Attending Clinician Unavailable Jaime MOTLEY Attending Clinician Mitchell Morley MD Attending Clinician Mitchell MORLEY Attending Clinician Unavailable Glenn Attending Clinician Unavailable Zuri Dalal MD Attending Clinician Javon MOTLEY Attending Clinician Nish MOTLEY Attending Clinician Laney Daniels MD Attending Clinician JAVON Attending Clinician Unavailable Jocelyn DICKINSON Attending Clinician Unavailable SHAMSEE, ALEJANDRO-AHBLADIMIR Attending Clinician Unavailable ALEJANDRO, - Attending Clinician Unavailable MOOK Attending Clinician Unavailable NISH Admitting Clinician Unavailable DR SHAILESH Admitting Clinician Unavailable Vivek Admitting Clinician Unavailable LISET CISSE Admitting Clinician Unavailable LILY_ADAM Admitting Clinician Unavailable DO Admitting Clinician Unavailable Elle Admitting Clinician Unavailable Giacomo Admitting Clinician Unavailable Yessy Admitting Clinician Unavailable Glenn Admitting Clinician Unavailable GABRIELA GAY Admitting Clinician Unavailable ALEJANDRO Admitting Clinician Unavailable Laney GARCIA Admitting Clinician Unavailable SHAMSEVarsha, ALEJANDRO-AHMED Admitting Clinician Unavailable AHRose GARRISON Admitting Clinician Unavailable OEI Admitting Clinician Unavailable Payers Payer Name Policy Type Policy Number Effective Date Expiration Date S millie HUMANJocelyn MEDICARE ADV [id number] 2019 00:00:00 MEDICAID OF [place] [id number] 2017 2017 00:00:00 00:00:00 MEDICARE A B [id number] 2005 2018 00:00:00 00:00:00 MEDICAID DIAZ [id number] 2017 00:00:00 WELLMED MEDICARE [id number] 2021 00:00:00 WELLMED DUAL [id number] COMPLETE SNP PPO-[facility]-MEDICAID - [id number] MEDICAID HMO - HUMANA [id number] 2019 2019 HEALTHCARE 00:00:00 00:00:00 MEDICARE PART A \\T\\ [id number] B - MEDICARE ZZZ-STAR PLUS [id number] 2011 00:00:00 STAR PLUS - DIAZ [id number] 2018 2018 00:00:00 00:00:00 MANAGED MEDICAID [id number] 2021 - 00:00:00 [facility] [id number] (MEDICARE REPLACEMENT/ADVANTA GE - PPO) [facility] [id number] 2016 [facility] (MEDICAID 00:00:00 HMO) GENERIC MEDICAID [id number] 2021 HMO 00:00:00 UNITED HMO POS [id number] 2020 SELECT CHOICE 00:00:00 [facility] - [id number] DUAL COMPLETE RP - DUAL ELIGIBLE - REGIONAL PPO - SNP (MEDICARE - MEDICAID REPLACEMENT PPO) [place] A-[place]: [id number] 2005 [employer] - 00:00:00 [facility] [id number] 2020 [employer] [place] 00:00:00 (MED[place] H[place] [id number] [place] [facility] - [id number] FQ (INSTITUTIONAL) [facility] [id number] HUMANA (MEDICARE [id number] REPLACEMENT/ADVANTA GE - PPO) HUMANA (PPO) [id number] MEDICARE B-[place]: [id number] 2005 [employer] 00:00:00 [facility] [id number] 2017 [facility] JAVA 00:00:00 PLUS - SENIOR CARE CARE CHOICE CARE [id number] 2019 00:00:00 MEDICAID [facility] [id number] 2017 00:00:00 Problems Condition Condition Condition Status Onset Resolution Last Treating Co mments Source Name Details Category Date Date Treatment Clinician Date Anxiety Anxiety Problem Active 2020-05 NPI:167 2-29 [id number] 00:00: 00 Osteoporos Osteoporos Problem Active 2020-05 N PI:167 is is 2-29 2100365 00:00: 00 Body mass Body Mass Problem Active NPI :167 index 30+ Index 30+ 9-28 9909 915 - obesity - Obesity 00:00: 00 COVID-19 Covid-19 Problem Active NPI:1 67 9-27 [id number] 00:00: 00 Chronic Chronic Disease Active [facility] cystitis cystitis 01-20 Colleg e without without 00:00: of hematuria hematuria 00 Medi marlene e Crohn's Crohn's Disease Active [facility] disease, disease, 01-11 Colleg e unspecifie unspecifie 00:00: of d, without d, without 00 Me dicin complicati complicati e ons ons (HCCode) (HCCode) Acute Acute Problem Active NPI:167 urinary Urinary 8-02 [id number] tract Tract 00:00: infection Infection 00 21082, Diagnosis Active 2020-08-04 Mem oria M25.561, 3-15 16:47:[place] [address], 00:00: Markus RIGHT KNEE M25.561, 00 PAIN IN RIGHT KNEE Active 07/13/2020 [facility] M17.12 - Diagnosis Active 11 M emoria UNILATERAL 1-04 10:01:00 l PRIMARY M17.12 - 00:00: Prachi nn OSTEOARTHR UNILATERAL 00 IT PRIMARY OSTEOARTHR IT Active [facility] Avascular Avascular Problem Active 2019-05 NPI :167 necrosis Necrosis 0-13 314719 5 of bone of Bone 00:00: 00 Lack or Lack or Problem Active NPI:167 loss of Loss of 9-18 4053918 sexual Sexual 00:00: desire Desire 00 Dyspareuni Dyspareuni Problem Active N PI:167 a a 9-18 4730799 00:00: 00 Menopausal Menopausal Problem Active N PI:167 syndrome Syndrome 01-16 726079 5 00:00: 00 Localized Localized Disease Active [facility] osteoporos osteoporos 6-08 st is without is without 00:00: Ho spita current current 00 l pathologic pathologic al al fracture fracture Ventral Ventral Disease Active [facility] incisional incisional 3-12 Co llege hernia hernia 00:00: of 00 Medicin e Peripheral Peripheral Problem Active N PI:167 nerve Nerve 1-08 [id number] disease Disease 00:00: 00 Low serum Low serum Disease Active 2018-05 [facility] cortisol cortisol 0-16 st level level 00:00: Hospita 00 l Pruritus Pruritus Problem Active 2018-05 NPI:1 67 of vulva of Vulva 015 605888 5 00:00: 00 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 00:00: deoxyribon Deoxyribon 00 ucleic ucleic acid test Acid Test positive, Positive, high risk High Risk on vaginal on Vaginal specimen Specimen 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 9 [id number] papillomav Papillomav 00:00: irus test irus Test 00 positive Positive Atypical Atypical Problem Active NPI:1 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 Squamous 01-10 011518 5 cells of Cells of 00:00: undetermin Undetermin 00 ed ed significan Significan ce on ce on vaginal Vaginal Papanicola Papanicola ou smear ou Smear Candidiasi Candidiasi Problem Active N PI:167 s of s of 01-07 8323474 vagina Vagina 00:00: 00 Postsurgic Postsurgic Problem Active N PI:167 al al 01-07 3772029 menopause Menopause 00:00: 00 Acute Acute Problem Active NPI:167 cystitis Cystitis 12-28 845971 5 00:00: 00 Urinary Urinary Problem Active NPI:167 tract Tract 12-17 9144635 infectious Infectious 00:00: disease Disease 00 Persistent Persistent Problem Active N PI:167 insomnia Insomnia 12-07 595967 5 00:00: 00 Mchenry's Mchenry's Problem Active NPI :167 disease Disease 11-19 7675066 00:00: 00 Abdominal Abdominal Disease Active NPI :118 pain pain 7-09 4697258 00:00: 00 Skin tag Skin Tag Problem Active NPI:1 67 6-19 3874737 00:00: 00 Crohn's Crohn's Disease Active [facility] disease of disease of 09-03 Co llege both small both small 00:00: of and large and large 00 Medi marlene intestine intestine e with other with other complicati complicati on on History of History of Disease Active [facility] immunosupp immunosupp 09-03 [facility] ression ression 00:00: of therapy therapy 00 Medicin e Medication Medication Disease Active [facility] monitoring monitoring 09-03 [facility] encounter encounter 00:00: of 00 Medicin e Intestinal Intestinal Disease Active [facility] malabsorpt malabsorpt 09-03 Co llege ion ion 00:00: of 00 Medicin e Small Small Disease Active [facility] bowel bowel 09-03 [facility] obstructio obstructio 00:00: of n (HCCode) n (HCCode) 00 Me dicin e History of History of Disease Active [facility] Clostridiu Clostridiu 09-03 Co llege m m 00:00: of difficile difficile 00 Medi marlene infection infection e Chronic Chronic Disease Active [facility] abdominal abdominal 09-03 [facility] pain pain 00:00: of 00 Medicin e Macrocytic Macrocytic Disease Active [facility] anemia anemia 09-03 [facility] 00:00: of 00 Medicin e Osteopenia Osteopenia Disease Active [facility] 06 [facility] 00:00: of 00 Medicin e Heavy Heavy Disease Active [facility] smoker smoker 06 [facility] 00:00: of 00 Medicin e Chronic Chronic Problem Active NPI:167 pain Pain 4-17 3496281 00:00: 00 Gastroesop Gastroesop Problem Active N PI:167 hageal hageal 4-17 8774013 reflux Reflux 00:00: disease Disease 00 Crohn's Crohn's Problem Active NPI:167 disease of Disease of 17 99 69856 small Small 00:00: intestine Intestine 00 Endometrio Endometrio Problem Active N PI:167 sis sis 4-17 6168432 (clinical) (Clinical) 00:00: 00 Multiple Multiple Problem Active NPI:1 67 joint pain Joint Pain 4-17 99 51768 00:00: 00 Bilateral Bilateral Disease Active NPI :118 lower lower 3-23 9386261 abdominal abdominal 00:00: pain pain 00 Crohn's Crohn's Disease Active NPI:118 disease disease 3-08 3645267 00:00: 00 SBO (small SBO (small Disease Active N PI:118 bowel bowel 3-08 7111491 obstructio obstructio 00:00: n) n) 00 Anxiety Anxiety Problem Active NPI:186 disorder Disorder 6-25 476067 9 00:00: 00 Endometrio Endometrio Problem Active N PI:186 sis sis 6-25 1035899 (clinical) (Clinical) 00:00: 00 Abdominal Abdominal Disease Active [facility] pain pain 4-21 st 00:00: Hospita 00 l Small Small Disease Active [facility] bowel bowel 4-16 st obstructio obstructio 00:00: Ho spita n n 00 l Colitis Colitis Disease Active [facility] presumed presumed 3-21 st infectious infectious 00:00: Ho spita 00 l Clostridiu Problem Active 2020-08-10 M emoria m 10-10 06:24:10 l difficile 00:00: [place] (organism) Clostridiu 00 m difficile (organism) Active 10/10/2016 Problem 08/10/2020 Stool 10/10/2016 Problem added by Discern Expert. [facility] [place] ABDOMINAL Diagnosis Active 2016-10-18 Memoria PAIN 611 07:22:00 l 00:00: Markus ABDOMINAL 00 PAIN Active 10/09/2016 [facility] [place] INSECT Diagnosis Active 2015-052016-02-10 Mem oria BITE 0-08 16:26:00 l INSECT 08:00: [place] BITE 00 Active 02/06/2016 [facility] VOMITING Diagnosis Active 2014-08-13 M emoria 4-15 08:22:00 l VOMITING 00:00: Sony n 00 Active 08/13/2014 [facility] DIARRHEA Diagnosis Active 2014-01-14 M emoria 9-16 08:28:00 l DIARRHEA 05:00: Sony n 00 Active 01/14/2014 [place] HEAT Diagnosis Active 2013-12-10 Mem oria EXPOSURE 11-22 08:48:00 l HEAT 00:00: Markus EXPOSURE 00 Active 11/22/2013 [place] Mixed Problem Active 2020-08-10 Memor ia anxiety - 06:24:10 l and Mixed 00:00: [place] depressive anxiety 00 disorder and (disorder) depressive disorder (disorder) Active 08/05/2013 Problem 08/10/2020 Data migrated from [employer] on 09/27/14. [facility], [facility] [place] Long-term Problem Active 2012-052020-08-10 Me moria drug 0-04 06:24:10 l therapy 00:00: [place] (procedure Long-term 00 ) drug therapy (procedure ) Active 02/01/2013 Problem 08/10/2020 Data migrated from [employer] on 09/27/14. [facility], [facility] [place] Hypothyroi Problem Resolve 2020-08-10 Memoria dism d 06:24:10 l (disorder) Sony n Hypothyroi dism (disorder) Resolved Problem 08/10/2020 [facility], [facility], [facility] [place] Abdominal Problem Resolve 2016-02-13 M emoria structure d 03:41:05 l (body Markus structure) Abdominal structure (body structure) Resolved Problem 02/13/2016 [facility], [facility] [place] Colitis Problem Active 2020-08-10 Isreal adiel (disorder) 06:24:10 l Colitis [place] (disorder) Active Problem 08/10/2020 [facility], [facility], [facility] [place] Osteoarthr Problem Active 2020-08-10 M emoria itis 06:24:10 l (disorder) [facility] Osteoarthr itis (disorder) Active Problem 08/10/2020 [facility] Pain Problem Active 2020-08-10 Memor ia (finding) 06:24:10 l Pain Markus (finding) Active Problem 08/10/2020 [facility], [facility] [place] Panic Panic Problem Active NPI:186 disorder Disorder 779412 9 without without agoraphobi Agoraphobi a a Generalize Generalize Problem Active N PI:186 d anxiety d Anxiety 1741 779 disorder Disorder History of Past Illness Condition Condition Condition Status Onset Resolution Last Treating Co mments Source Name Details Category Date Date Treatment Clinician Date Unspecifie Problem 2016-052017-02-21 2017-02-21 Memoria d 0- 01:25:53 01:25:53 l abdominal 05:00: [place] pain Unspecifie 00 d abdominal pain 02/18/2017 02/21/2017 [facility] Discharge Problem 2015-052016-02-13 2016-02-13 Memoria Diagnosis: 0- 03:41:05 03:41:05 l Erythema 05:00: [place] nodosum Discharge 00 Diagnosis: Erythema nodosum 02/10/2016 02/13/2016 [facility] Discharge Problem 2014-08-16 2014-08-16 Memoria Diagnosis: 08-13 08:06:50 08:06:50 l Diarrhea 05:00: Markus Discharge 00 Diagnosis: Diarrhea 5 08/16/2014 [facility] Discharge Problem 2014-08-16 2014-08-16 Memoria Diagnosis: 08-13 08:06:50 08:06:50 l Hypokalemi 05:00: Sony n a Discharge 00 Diagnosis: Hypokalemi a 08/13/2014 08/16/2014 [facility] [place] Discharge Problem 2013-052014-03-11 2014-03-11 Memoria Diagnosis: 05-09 21:37:50 21:37:50 l Abdominal 06:00: [place] pain Discharge 00 Diagnosis: Abdominal pain 03/09/2014 03/11/2014 [facility] [place] Discharge Problem 2013-052014-03-11 2014-03-11 Memoria Diagnosis: 05-09 21:37:50 21:37:50 l UTI 06:00: [place] (urinary Discharge 00 tract Diagnosis: infection) UTI (urinary tract infection) 03/09/2014 03/11/2014 [facility] Discharge Problem 2013-052014-03-11 2014-03-11 Memoria Diagnosis: 05-09 21:37:50 21:37:50 l Vomiting 06:00: [place] Discharge 00 Diagnosis: Vomiting 4 03/11/2014 [facility] Discharge Problem 2014-01-17 2014-01-17 [facility] Diagnosis: 01-14 04:54:49 04:54:49 l UTI (lower 05:00: Sony n urinary Discharge 00 tract Diagnosis: infection) UTI (lower urinary tract infection) 01/14/2014 01/17/2014 [place] Allergies, Adverse Reactions, Alerts Allergy Allergy Status Severity Reaction(s) Onset Inactive Treating Comm ents Source Name Type Date Date Clinician Morphine Propensi Active Other (See Pt states Methodi ty to Comments) 05-[address] adverse 00:00: doesn't Hospita reaction 00 work per l s to pt drug Morphine Allergy Active NPI:167 to 08-17 [id number] substanc 00:00: e 00 Morphine Propensi Active Mild Other [facility] ty to 08-17 reaction( College adverse 00:00: s): Other of reaction 00 (See Medicin s to Comments) e drug Patient said does not work for her. MORPHINE Allergy Active Low Other [facility] 08-17 00:00: 00 Morphine Drug Active Other (See Patient NPI :118 Allergy Comments) 08-17 said does 462 2847 00:00: not work 00 for her. PROMETHA Allergy Active Med Other [facility] ZINE 07-06 00:00: 00 Prometha Drug Active Other (See Makes NPI: 118 zine Allergy Comments) 07-06 mouth/jaw 462 2847 00:00: twitch/je 00 rk Remeron Allergy Active Other NPI:186 to 11-27 4750479 substanc 00:00: e 00 CIPROFLO DRUG Active High Anaphylaxis NPI :183 XACIN INGREDI 11-09 2342547 00:00: 00 PROMETHA DRUG Active High Anaphylaxis NPI :183 ZINE HCL INGREDI 11-09 [id number] 00:00: 00 Ciproflo Propensi Active Swelling Meth deepti xacin ty to 20 st adverse 00:00: Hospita reaction 00 l s to drug Prometha Propensi Active Other (See Face Me thodi zine ty to Comments) 3-[address] adverse 00:00: Hospita reaction 00 l s to drug ciproflo ciproflo Active 2012-05 Memori a xacin xacin 0-04 l 05:00: [place] Phenerga Phenerga Active 2012-05 Memori a n<sup>2< n<sup>2< 0-04 l /sup> /sup> 05:00: Markus Ciproflo Allergy Active Severe, Anaphylaxis, NPI:167 xacin to Severe, Hives, 10-24 9471722 substanc Severe Swelling 00:00: e 00 Ciproflo Propensi Active Swelling [facility] xacin ty to 10-24 College adverse 00:00: of reaction 00 Medicin s to e drug Prometha Propensi Active Other (See Muscle [facility] zine Hcl ty to Comments) 10-24 tw[facility] adverse 00:00: of reaction 00 Medicin s to e drug CIPROFLO Allergy Active High Swelling [facility] XACIN 10-24 00:00: 00 PROMETHA Allergy Active High Anaphylaxis SL [facility] ZINE HCL 10-24 00:00: 00 Ciproflo Drug Active Swelling, Makes NPI:1 18 xacin Allergy Anaphylaxis, 10-24 tongue 462 2847 Hives 00:00: swell 00 Prometha Propensi Active Anaphylaxis, Muscle NPI:118 zine Hcl ty to Other (See 10-24 twiching 46 52679 adverse Comments) 00:00: reaction 00 s Phenerga Allergy Active Moderate Facial NPI:1 67 n to swelling 5668464 substanc e Cipro Allergy Active Anaphylaxis NPI: 186 to [id number] substanc e Trazodon Allergy Active Hives NPI:186 e to [id number] substanc e Family History Family Member Diagnosis Comments Start Date Stop Date Source Maternal grandfather Cancer Maternal grandfather Cancer [facility] Maternal grandmother Dementia Maternal grandmother Endometriosis N PI:[id number] Maternal uncle Suicidality NPI:[id number] 38437 Natural mother Endometriosis NPI:332 [id number] Natural mother Other [facility] Natural father [facility] Social History Social Habit Start Date Stop Date Quantity Comments Source History SDOH NPI:[id number] Alcohol Std Drinks History SDOH NPI:[id number] 47 Alcohol Binge History SDNY NPI:[id number] 47 Alcohol Comment History of tobacco Cigarette Smoker Druze use Hospital Exposure to Not sure Druze SARS-CoV-2 (event) Hospit al Alcohol intake 2021-05-25 2021-05-25 Current Druze 00:00:00 00:00:00 non-drinker of Hospital alcohol (finding) Tobacco Comment 2020-01-29 2020-01-29 On chantix now. I [facility] 00:00:00 00:00:00 have to stop. Hospital Cigarettes smoked 2018-12-24 2018-12-24 [facility] current (pack per 00:00:00 00:00:00 Hospita l day) - Reported Tobacco use and 2018-12-24 2018-12-24 Smokeless tobacco [facility] exposure 00:00:00 00:00:00 non-user Hospital Cigarette 2018-07-06 2018-07-06 pack-years 00:00:00 00:00:00 History SDOH 2018-07-06 2018-07-06 1 NPI:[id number] Alcohol Frequency 00:00:00 00:00:00 Social History 2014-01-14 2014-01-14 [facility] 03:02:48 03:02:48 [birth year] NPI:[id number] 00:00:00 00:00:00 Smoking Status Start Date Stop Date Source Former Smoker Heavy Tobacco Smoker NPI:[id number] Smokes tobacco daily 2018-12-24 00:00:00 [facility] Medications Ordered Filled Start Stop Current Ordering Indication Dosage Frequency Signature Comments Components Source Medication Medication Date Date Medication? Clinician (SIG) Name Name ketorolac ketorolac No ketorolac NPI:167 60 mg/2 mL 60 mg/2 mL - 60 mg/2 mL [id number] intramuscul intramuscul 12:45: intramuscu ar ar 00 lar syringeInje syringeInje syringeInj ct [address] 60 mg by ect 60 mg intramuscul intramuscul by ar route. ar route. intramuscu lar route. clonAZEPAM 2022-0 Yes 1mg Take 1 mg Me thodi (KlonoPIN) 1-[address] 1 MG tablet 16:29: Hospit a 47 l zoledronic 0 Yes Reclast 5 Me thodi acid 1-10 mg/[address] (RECLAST) 5 16:29: intravenou Hospita mg/100 mL 47 s l piggyback piggyback Inject by intravenou s route. multivitami Yes 1{tbl} Take 1 Me thodi n,tx-iron-m 1-[address] inerals 16:29: mouth. Hospita tablet 47 l baclofen 0 Yes 20mg Q.[id number] Take 20 mg [facility] (LIORESAL) 1-10 [id number] by mouth [address] 20 MG 16:29: 3D (three) Hospita tablet 47 times a l day. gabapentin Yes 600mg Q.[id number] Take 600 [facility] (NEURONTIN) 1-10 [id number] mg by s t 600 mg 16:29: 3D mouth 3 Hospita tablet 47 (three) l times a day. estradioL Yes 1mg QD Take 1 mg [facility] (ESTRACE) 1 1-[address] MG tablet 16:29: daily. Hospit a 47 l pantoprazol 2021- No 40mg QD Take 40 mg Methodi e 05-[address] (PROTONIX) 11:20: 00:00 daily. Hosp lucie 40 MG EC 13 :00 l tablet ALPRAZolam 2021- No alprazolam [facility] (XANAX) 1 05-06- [address] MG tablet 11:19: 00:00 tablet T1T H ospita 36 :00 PO QD l methocarbam 2021- No 500mg Q6H Take 500 Methodi ol 05-06- mg by st (ROBAXIN) 11:18: 00:00 mouth Hospit a 500 MG 28 :00 every 6 l tablet (six) hours. mesalamine Yes Crohn's 2400mg Take 2,400 NPI:118 (LIALDA) 1-03 disease mg by [id number] 1.2 gram EC 09:36: mouth tablet 14 daily with breakfast. hydroCHLORO 2022-0 Yes 25mg QD Take 25 mg NPI:118 thiazide 1-03 by mouth [id number] (MICROZIDE) 09:36: daily. 12.5 mg 14 capsule TERBINAFINE 2-0 Yes 250mg QD Take 250 N PI:118 HCL ORAL 1-03 mg by [id number] 09:36: mouth 14 daily. sucralfate 2022-0 Yes 1g Q.25D Take 1 g IMAGING ACCOUNT MANAGER I:118 (CARAFATE) 1-03 by mouth 4 [id number] 2847 1 gram 09:36: (four) tablet 14 times daily. nitrofurant 2022-0 Yes 100mg Q.5D Take 100 N PI:118 oin, 1-03 mg by [id number] macrocrysta 09:36: mouth 2 l-monohydra 14 (two) te, times (MACROBID) daily. 100 MG capsule mesalamine 2021-0 Yes Crohn's 2400mg Take 2,400 NPI:118 (LIALDA) 1-03 disease mg by [id number] 1.2 gram EC 09:36: mouth tablet 14 daily with breakfast. hydroCHLORO 2022-0 Yes 25mg QD Take 25 mg NPI:118 thiazide 1-03 by mouth [id number] (MICROZIDE) 09:36: daily. 12.5 mg 14 capsule TERBINAFINE 2021-0 Yes 250mg QD Take 250 N PI:118 HCL ORAL 1-03 mg by [id number] 09:36: mouth 14 daily. sucralfate 2-0 Yes 1g Q.25D Take 1 g IMAGING ACCOUNT MANAGER I:118 (CARAFATE) 1-03 by mouth 4 [id number] 2847 1 gram 09:36: (four) tablet 14 times daily. nitrofurant 2021-0 Yes 100mg Q.5D Take 100 N PI:118 oin, 1-03 mg by [id number] macrocrysta 09:36: mouth 2 l-monohydra 14 (two) te, times (MACROBID) daily. 100 MG capsule clonazePAM 2020-05 Yes 1mg Take 1 mg [facility] (KLONOPIN 1-12 by mouth 3 [facility] OR) 09:36: times of 32 daily. Medicin e busPIRone 2020-05 Yes 10mg Take 10 mg [facility] (BUSPAR) 10 1-12 by mouth 3 Co [facility]lege MG tablet 09:36: times of 32 daily. Medicin e estradiol 2020-05 Yes estradiol [facility] esthela (ESTRACE) 1 -12 1 mg College MG tablet 09:36: tablet of 32 Medicin e montelukast 2020-05 Yes 10mg Take 10 mg Kev (SINGULAIR) 112 by mouth [facility] 10 MG 09:36: daily. of tablet 32 Medicin e phenazopyri 2020-05 Yes 200mg Take 1 [facility] esthela dine 1-12 Tablet by [facility] (PYRIDIUM) 00:00: mouth 3 of 200 MG 00 times Medicin tablet daily as e needed for Pain. Ustekinumab 2020-05 Yes [id number] INJECT [facility] (STELARA) 05-09 90MG College 90 MG/ML 00:00: SUBCUTANEO of [...] escitalopra 2020- No 20mg Take 20 mg [facility] m (LEXAPRO) 01-19 by mouth Col [facility] 20 MG 15:10: 00:00 daily. of tablet 33 :00 Medicin e Mesalamine 2020- No 1.2mg Take 1.2 [facility] 1.2 g TBEC 01-19- mg by [facility] 15:08: 00:00 mouth of 54 :00 daily. Medicin e Mesalamine 2020- No 1.2mg Take 1.2 [facility] 1.2 g TBEC 01-19- mg by [facility] 15:08: 00:00 mouth of 54 :00 daily. Medicin e loperamide 2020- No 2mg Take 2 mg [facility] (IMMODIUM) 01-19 by mouth [facility] 2 MG 15:08: 00:00 daily. of capsule 35 :00 Medicin e loperamide 2020- No 2mg Take 2 mg [facility] (IMMODIUM) 01-19 by mouth Ronny ege 2 MG 15:08: 00:00 daily. of capsule 35 :00 Medicin e raNITIdine 2020- No [facility] HCl (ZANTAC 01-19 College OR) 15:08: 00:00 of 17 :00 Medicin e raNITIdine 2020-2020- No [facility] HCl (ZANTAC 01-19 College OR) 15:08: 00:00 of 17 :00 Medicin e Sulfamethox 2020- No Take by [facility] azole-Trime 01-19 mouth. [facility]le ge thoprim 15:07: 00:00 of (BACTRIM 49 :00 Medicin OR) e Sulfamethox 2020- No Take by [facility] azole-Trime 01-19 mouth. Colle ge thoprim 15:07: 00:00 of (BACTRIM 49 :00 Medicin OR) e quetiapine 2020- No 50mg Take 50 mg [facility] (SEROQUEL) 01-19 by mouth Ronny ege 50 MG 15:07: 00:00 daily. of tablet 31 :00 Medicin e quetiapine 2020- No 50mg Take 50 mg [facility] (SEROQUEL) 01-19 by mouth Ronny ege 50 [...] of tablet 48 :00 Medicin e Nitrofurant 0 Yes Take by [facility] oin Monohyd 9-21 mouth. Colleg e Macro 14:16: of (MACROBID 37 Medicin OR) e Nitrofurant 2020-0 Yes Take by [facility] oin Monohyd 9-21 mouth. Colleg e Macro 14:16: of (MACROBID 37 Medicin OR) e clonazePAM 2020-0 Yes 1mg Take 1 mg [facility] (KLONOPIN 9-21 by mouth 3 Ronny ege OR) 14:15: times of 26 daily. Medicin e clonazePAM 2020-0 Yes 1mg Take 1 mg [facility] (KLONOPIN 9-21 by mouth 3 Ronny ege OR) 14:15: times of 26 daily. Medicin e busPIRone 2020-0 Yes 10mg Take 10 mg [facility] (BUSPAR) 10 - by mouth 3 Co llege MG tablet 14:15: times of 26 daily. Medicin e estradiol 0 Yes estradiol [facility] (ESTRACE) 1 9- 1 mg College MG tablet 14:15: tablet of 26 Medicin e busPIRone 2020-0 Yes 10mg Take 10 mg [facility] (BUSPAR) 10 - by mouth 3 Co llege MG tablet 14:15: times of 26 daily. Medicin e montelukast 2020-0 Yes 10mg Take 10 mg [facility] (SINGULAIR) - by mouth Ronny ege 10 MG 14:15: daily. of tablet 26 Medicin e estradiol 2020-0 Yes estradiol [facility] (ESTRACE) 1 9- 1 mg College MG tablet 14:15: tablet of 26 Medicin e montelukast 2020-0 Yes 10mg Take 10 mg [facility] (SINGULAIR) - by mouth Ronny ege 10 MG 14:15: daily. of tablet 26 Medicin e pantoprazol 2020-0 Yes [id number] TAKE 1 Kev e 8-05 TABLET BY [facility] (PROTONIX) 00:00: MOUTH of 40 MG 00 TWICE Medicin tablet DAILY e pantoprazol 2020-0 Yes [id number] TAKE 1 [facility] e 8-05 TABLET BY [facility] (PROTONIX) 00:00: MOUTH of 40 MG 00 TWICE Medicin tablet DAILY e pantoprazol 0 Yes [id number] TAKE 1 Kev e 8-05 TABLET BY [facility] (PROTONIX) 00:00: MOUTH of 40 MG 00 TWICE Medicin tablet DAILY e cholestyram Yes 1{packe Take 1 [facility] ine 6-21 t} Packet by [facility] (QUESTRAN) 00:00: mouth of 4 g packet 00 daily. Medicin e cholestyram 0 Yes 1{packe Take 1 [facility] ine 6-21 t} Packet by [facility] (QUESTRAN) 00:00: mouth of 4 g packet 00 daily. Medicin e cholestyram 202- No 1{packe Take 1 [facility] ine 6-21 11-12 t} Packet by [facility] (QUESTRAN) 00:00: 00:00 mouth of 4 g packet 00 :00 daily. Medicin e cefadroxil Yes 500 mg = 1 M emoria 500 mg oral 4-06 cap, PO, l capsule 14:00: BID, Markus 00 start medication on 08/04/20 eRx sent to pharmacy [facility] #[id number] [address] [place] [address] [phone], X 7 day, # 14 cap, 0 Refill(s), called to pharmacy meloxicam Yes 15 mg = 1 Mem oria 15 mg oral 4-06 tab, PO, l tablet 14:00: Daily, Sony n 00 start medication on 08/04/20 eRx sent to pharmacy [facility] #[id number] [address] [place] [address] [phone], # 30 tab, 0 Refill(s), called to pharmacy Aspirin 81 Yes 81 mg = 1 Me moria MG Enteric 4-06 tab, PO, l Coated 02:00: BID, Markus Tablet 00 start medication on 08/03/20 eRx sent to [facility] #[id number] [address] [place] [address] [phone], # 60 tab, 0 Refill(s), called to pharmacy Ustekinumab Yes [id number] INJECT [facility] (STELARA) 4-06 90MG College 90 MG/ML 00:00: SUBCUTANEO of injection 00 USLY EVERY Medi marlene 28 DAYS e Ustekinumab Yes [id number] INJECT [facility] (STELARA) 4-06 90MG [employer] 90 MG/ML 00:00: SUBCUTANEO of injection 00 USLY EVERY Medi marlene 28 DAYS e Ondansetron Yes 4 mg = 1 Me moria 4 MG 4-05 tab, PO, l Disintegrat 22:00: Q8H, PRN He rmann ing Tablet 00 Nausea & Vomiting, allow tablet to dissolve on tongue start medication on 08/03/20 eRx sent to pharmacy [facility] #[id number] [address] [address] , # 12 tab, 0 Refill(s), ... ePHEDrine No Route: IV, Me moria (ANES) - Drug form: l 12:42: INJ, ONCE, [place] Stop date: 08/03/20 7:42:00 CDT ondansetron No Route: IV, Memoria (ANES) 08-03 Drug form: l 12:32: INJ, ONCE, [place] Stop date: 08/03/20 7:32:00 CDT dexamethaso No Route: IV, Memoria ne (ANES) 08-03 Drug form: l 12:32: INJ, ONCE, [place] Stop date: 08/03/20 7:32:00 CDT midazolam No Route: IV, Me moria (ANES) 4-05 Drug form: l 12:27: SOLN, Markus 00 ONCE, Stop date: 08/03/20 7:27:00 CDT lidocaine No Route: IV, Me moria (ANES) 4-05 Drug form: l 12:27: INJ, ONCE, [place] 00 Stop date: 08/03/20 7:27:00 CDT fentaNYL No Route: IV, Mem oria (ANES) 08-03 Drug form: l 12:27: INJ, ONCE, Markus Stop date: 08/03/20 7:27:00 CDT propofol 2020-0 [...] Memori a 08-03 Route: l 12:10: IVP, [place] 00 Q5Min, Dosing Weight 77.273, kg, PRN Elevated BP, Start date: 08/03/20 7:10:00 CDT, Duration: 5 doses or times, Stop date: Limited # of times Metoprolol 2020-0 No 1 mg, Memori a 08-03 Route: l 12:10: IVP, [place] 00 Q5Min, Dosing Weight 77.273, kg, PRN Other -See Comment, Start date: 08/03/20 7:10:00 CDT, Duration: 5 doses or times, Stop date: Limited # of times Ketorolac 2020-0 No 30 mg, Memori a 08-03 Route: l 12:10: IVP, ONCE, Dosing Weight 77.273, kg, Start date: 08/03/20 7:10:00 CDT, Stop date: 08/03/20 7:10:00 CDT Hydromorpho 2020-0 No 0.5 mg, Mem oria ne 08-03 Route: l 12:10: IVP, Markus 00 Q5Min, Dosing Weight 77.273, kg, PRN Pain Score 7-10, Start date: 08/03/20 7:10:00 CDT, Duration: 4 doses or times, Stop date: Limited # of times Flumazenil 2020-0 No 0.2 mg, Isreal adiel 08-03 Route: l 12:10: IVP, PRN, [place] 00 Dosing Weight 77.273, kg, PRN Benzodiaze pine Reversal, Initial dose, Start date: 08/03/20 7:10:00 CDT, Duration: 30 day, Stop date: 09/02/20 7:09:00 CDT Naloxone No 0.4 mg, Memori a 08-03 Route: l 12:10: IVP, [place] Q2MIN, Dosing Weight 77.273, kg, PRN Narcotic Reversal, Start date: 08/03/20 7:10:00 CDT, Duration: 8 doses or times, Stop date: Limited # of times Ondansetron No 4 mg, Memor ia -05 Route: l 12:10: IVP, ONCE, Dosing Weight [...] ceFAZolin + No Notes: Isreal adiel sterile 4-04 (Same As: l water 20 mL 04:00: Ancef, Herm chelsey Kefzol) MEDICATION WASTE Product Size: 1000 mg Product Wasted: ___ mg Famotidine No Notes: Memor ia 4-04 (Same as: l 04:00: Pepcid) Markus Zofran ODT No Notes: Memor ia 4-04 (Same as: l 04:00: Zofran ODT) Acetaminoph No Notes: Max Memoria en 4-04 acetaminop l 04:00: hen 4000 Markus mg/day (4 gm/day). (Same as: Tylenol Extra Strength) cefadroxil Yes 500 mg = 1 M emoria 500 mg oral 1-12 cap, PO, l capsule 15:00: BID, [place] 00 start medication on 05/12/20 eRx sent to pharmacy [facility] #[id number] [address] [place] [address] , X 7 day, # 14 cap, 0 Refill(s), called to pharmacy meloxicam Yes 15 mg = 1 Mem oria 15 mg oral 1-12 tab, PO, l tablet 15:00: Daily, Sony n 00 start medication on 05/12/20 eRx sent to pharmacy [facility] [employer] [facility] #[id number] [address] [place] [address] , # 30 tab, 0 Refill(s), called to pharmacy meloxicam No Notes: Memori a 1-12 (Same as: l 15:00: Mobic) [place] 00 Aspirin 81 No Notes: Do Me moria MG Enteric -12 not crush l Coated 14:00: or chew. Markus Tablet 00 (Same As: Ecotrin) Cefazolin No Notes: Memori a 1-12 (Same As: l 09:00: AncefMarkus 00 Kefzol) MEDICATION WASTE Product Size: 1000 mg Product Wasted: ___ mg Docusate No Notes: Memoria Sodium 100 1-12 (Same as: l MG Oral 03:06: Colace) Markus Capsule 00 (Do Not [Colace] Crush) Aspirin 81 Yes 81 mg = 1 Me moria MG Enteric 1-12 tab, PO, l Coated 03:00: BID, [place] Tablet 00 start medication on 05/11/20 eRx sent to pharmacy [facility] [facility] #[id number] [address] [place] [address] , # 60 tab, 0 Refill(s), called to pharmacy gabapentin No Notes: Memor ia 300 MG Oral 1-12 (Same as: l Capsule 03:00: Neurontin) Herm chelsey Saline No Notes: Memoria Flush 0.9% 12 (Same as: l 03:00: BD [place] Posiflush) Ondansetron Yes 4 mg = 1 Me moria 4 MG 12 tab, PO, l Disintegrat 00:29: Q8H, PRN He rmann ing Tablet 00 Nausea & Vomiting, allow tablet to dissolve on tongue start medication on 05/11/20 eRx sent to pharmacy [facility] #[id number] [address] [place] [address] , # 12 tab, 0 Refill(s). .. Klonopin No Notes: Memoria 05-11 (Same As: l 23:10: KlonoPIN) [place] 00 [facility] 3:Reproduc tive risk Hazardous [...] Total Volume: 1,000, Start date: 05/11/20 15:03:00 CHILDCARE ATTENDANT, Duration: 30 day, Stop date: 06/10/20 15:02:00 CHILDCARE ATTENDANT, 1.72, m2, 0 Acetaminoph No Notes: Do M emoria en 325 MG / 05-11 not exceed l Hydrocodone 21:03: 4gm/day of [place] Bitartrate 00 acetaminop 10 MG Oral hen. Tablet (Same as: [place] 325/10) Zofran ODT No Notes: Memor ia -11 (Same as: l 21:03: Zofran [place] ODT) Benadryl No Notes: Memoria 05-11 (Same as: l 21:03: Benadryl) Melatonin 3 No Notes: Isreal adiel MG Extended 05-11 (Same as: l Release 21:03: Melatonin) Herm chelsey Tablet 00 Tums No Notes: Memoria 05-11 (Same As: l 21:03: Tums) Calcium Carbonate 500 mg = 200 mg elemental calcium Dose = mg calcium carbonate ( mg elemental calcium) Saline No Notes: Memoria Flush 0.9% 05-11 (Same as: l 21:03: BD Posiflush) ceFAZolin No Route: IV, Me moria (ANES) 05-11 Drug form: l 19:57: INJ, ONCE, Stop date: 05/11/20 13:57:00 CHILDCARE ATTENDANT lidocaine No Route: IV, Me moria (ANES) 05-11 Drug form: l 19:52: INJ, ONCE, Stop date: 05/11/20 13:52:00 CHILDCARE ATTENDANT fentaNYL No Route: IV, Mem oria (ANES) 05-11 Drug form: l 19:52: INJ, ONCE, Stop date: 05/11/20 13:52:00 CHILDCARE ATTENDANT propofol No Route: IV, Mem oria (ANES) 05-11 Drug form: l 19:52: INJ, ONCE, Stop date: 05/11/20 13:52:00 CHILDCARE ATTENDANT midazolam No Route: IV, Me moria (ANES) 05-11 Drug form: l 19:47: SOLN, ONCE, Stop date: 05/11/20 13:47:00 CHILDCARE ATTENDANT famotidine No Route: IV, M emoria (ANES) 05-11 Drug form: l 19:47: INJ, ONCE, Stop date: 05/11/20 13:47:00 CHILDCARE ATTENDANT Oxycodone No 5 mg, Memoria Hydrochlori 05-11 Route: PO, l de 5 MG 19:36: Drug form: Herm chelsey Oral Tablet 00 TAB, Q4H, Dosing Weight 65.909, kg, PRN Pain Score 4-6, Start date: 05/11/20 13:36:00 CHILDCARE ATTENDANT, Duration: 30 day, Stop date: 06/10/20 13:35:00 CHILDCARE ATTENDANT Fentanyl 1-0 No 25 Memoria 1-11 microgram, l 19:36: Route: Markus 00 IVP, Q5Min, Dosing Weight 65.909, kg, PRN Pain Score 4-6, Priority: Routine, Start date: 05/11/20 13:36:00 CHILDCARE ATTENDANT, Duration: 4 doses or times, Stop date: Limited # of times Flumazenil 2020-0 No 0.2 mg, Isreal adiel 05-11 Route: l 19:36: IVP, PRN, Markus 00 Dosing Weight 65.909, kg, PRN Benzodiaze pine Reversal, Initial dose, Start date: 05/11/20 13:36:00 CHILDCARE ATTENDANT, Duration: 30 day, Stop date: 06/10/20 13:35:00 CHILDCARE ATTENDANT Naloxone 2020-0 No 0.4 mg, Memori a 05-11 Route: l 19:36: IVP, [place] 00 Q2MIN, Dosing Weight 65.909, kg, PRN Narcotic Reversal, Start date: 05/11/20 13:36:00 CHILDCARE ATTENDANT, Duration: 8 doses or times, Stop date: Limited # of times Meperidine 2020-0 No 12.5 mg, Mem oria 05-11 Route: l 19:36: IVP, [place] 00 Q30Min, Dosing Weight 65.909, kg, PRN Other -See Comment, For shivering, Start date: 05/11/20 13:36:00 CHILDCARE ATTENDANT, Duration: 2 doses or times, Stop date: Limited # of times Ondansetron 2020-0 No 4 mg, Memor ia 05-11 Route: l 19:36: IVP, ONCE, Markus 00 Dosing Weight 65.909, kg, PRN Nausea & Vomiting, Start date: 05/11/20 13:36:00 CHILDCARE ATTENDANT tranexamic 2020-0 No Route: IV, M emoria acid (ANES) 05-11 Drug form: l 100 mg 19:29: INJ, Start Prachi nn 00 date: 05/11/20 13:29:00 CHILDCARE ATTENDANT, Stop date: 05/11/20 14:29:00 CHILDCARE ATTENDANT propofol 2021-0 No Route: IV, Mem oria (ANES) 10 1- Drug form: l mg 19:17: INJ, Start Markus 00 date: 05/11/20 13:17:00 CHILDCARE ATTENDANT, Stop date: 05/11/20 14:17:00 CHILDCARE ATTENDANT Lactated No Route: IV, Mem oria Ringers -11 Total l Injection 19:07: Volume: Prachi nn IV (ANES) 00 1,000, 1000 mL Start date: 05/11/20 13:07:00 CHILDCARE ATTENDANT, Stop date: 05/11/20 14:07:00 CHILDCARE ATTENDANT ceFAZolin + No Notes: Isreal adiel sterile 05-11 (Same As: l water 20 mL 06:00: Ancef, Herm Kefzol) MEDICATION WASTE Product Size: 1000 mg Product Wasted: ___ mg Zofran ODT No Notes: Memor ia 05-11 (Same as: l 06:00: Zofran ODT) CeleBREX No Notes: Memoria 05-11 NSAID. l 06:00: Please [place] 00 check indication . Not for seizure. (Same As: CeleBREX) Cyklokapron No Notes: Isreal adiel + Sodium 05-11 (Same As: l Chloride 06:00: Cyklokapro Her hogan 0.9% IV 100 00 n) mL Lyrica No Notes: Memoria - (Same as: l 06:00: Lyrica) acetaminoph No Notes: Max Memoria en 05-11 acetaminop l 06:00: hen 4000 [place] 00 mg/day (4 gm/day). (Same as: Tylenol Extra Strength) dexamethaso No Notes: Isreal adiel ne 05-11 Concentrat l 06:00: ion: Markus 00 4mg/ml famotidine No Notes: Memor ia -11 (Same as: l 06:00: Pepcid) pantoprazol Yes 40 mg = 2 M emoria e 20 mg 05-07 tab, PO, l oral 16:46: Daily, # [place] enteric 00 60 tab, 0 coated Refill(s) [...] ia 05-07 QID, 0 l 16:25: Refill(s) [place] 00 ferrous Yes 250 mg = 1 Isreal adiel sulfate 250 05-07 cap, PO, l mg oral 16:24: Daily, # Sony n capsule, 00 30 cap, 0 extended Refill(s) release Chantix 1 Yes 1 mg = 1 Isreal adiel mg oral 05-07 tab, PO, l tablet 16:24: Daily, # [place] 00 30 tab, 0 Refill(s) Furosemide Yes [...] Yes post 10mg QD Take 10 mg NPI:118 m oxalate 9-10 traumatic by mouth 4 [id number] (LEXAPRO) 15:01: stress daily. 10 MG 57 disorder tablet clonazePAM Yes 1mg Q.[id number] Take 1 mg NPI:118 (KLONOPIN) 9-10 [id number] by mouth 3 [id number] 1 MG tablet 15:01: 3D (three) 57 times daily . 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 terconazole 2020-0 Yes 1{appli QD Place 1 NPI:118 (TERAZOL 7) 9-10 cator} applicator [id number] 0.4 % 15:01: vaginally vaginal 57 nightly. cream busPIRone 2020-0 Yes 15mg Q.25D Take 15 mg N PI:118 (BUSPAR) 15 9-10 by mouth 4 [id number] MG tablet 15:01: (four) 57 times daily. gabapentin 2020-0 Yes 300mg Q.69670338 Take 300 NPI:118 (NEURONTIN) 9-10 [id number] mg by 4 [id number] 300 MG 15:01: 3D mouth 3 capsule 57 (three) times daily. estrogens, 2020-0 Yes 1mg QD Take 1 mg IMAGING ACCOUNT MANAGER I:118 conjugated, 9-10 by mouth [id number] (PREMARIN) 15:01: daily. 1.25 MG 57 tablet pantoprazol 2020-0 Yes 40mg Q.5D Take 40 mg NPI:118 e 9-10 by mouth 2 [id number] (PROTONIX) 15:01: (two) 40 MG 57 times tablet daily. ferrous 2020-0 Yes 65mg Take 65 mg NPI: 118 sulfate 325 9-10 by mouth [id number] (65 FE) MG 15:01: daily with tablet 57 breakfast. fluconazole 2020-0 Yes 100mg QD Take 100 N PI:118 (DIFLUCAN) 9-10 mg by [id number] 100 MG 15:01: mouth tablet 57 daily. calcium 2020-0 Yes 600mg QD Take 600 NPI:1 18 carbonate 9-10 mg by [id number] (OS-PAYAM) 15:01: mouth 600 mg 57 daily. calcium (1,500 mg) Tab cholecalcif 2020-0 Yes 5000U QD Take 5,000 NPI:118 estephania, 9-10 Units by [id number] vitamin D3, 15:01: mouth 125 mcg 57 daily. (5,000 unit) Tab zoledronic 2020-0 Yes Inject NPI:1 18 acid/mannit 9-10 intravenou 46 [id number] ol-water 15:01: sly. (RECLAST 57 IV) sodium 2020-0 Yes Inject NPI:118 chloride 9-10 intravenou [id number] 47 0.9% (NS) 15:01: sly SolP with 57 continuous HYDROmorpho . ne 10 mg/mL Soln 20 mcg/mL baclofen 2020-0 Yes 10mg Q.02369222 Take 10 mg NPI:118 (LIORESAL) 9-10 [id number] by mouth 3 [id number] 10 MG 15:01: 3D (three) tablet 57 times daily. sertraline 2020-0 Yes 25mg QD Take 25 mg N PI:118 (ZOLOFT) 25 9-10 by mouth [id number] 847 MG tablet 15:01: daily. 57 escitalopra 2020-0 Yes post 10mg QD Take 10 mg NPI:118 m oxalate 9-10 traumatic by mouth 4 [id number] (LEXAPRO) 15:01: stress daily. 10 MG 57 disorder tablet clonazePAM 2020-0 Yes 1mg Q.29930306 Take 1 mg NPI:118 (KLONOPIN) 9-10 [id number] by mouth 3 [id number] 1 MG tablet 15:01: 3D (three) 57 times daily . 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 terconazole 2020-0 Yes 1{appli QD Place 1 NPI:118 (TERAZOL 7) 9-10 cator} applicator [id number] 0.4 % 15:01: vaginally vaginal 57 nightly. cream busPIRone 2020-0 Yes 15mg Q.25D Take 15 mg N PI:118 (BUSPAR) 15 9-10 by mouth 4 46 31930 MG tablet 15:01: (four) 57 times daily. gabapentin 2020-0 Yes 300mg Q.94059654 Take 300 NPI:118 (NEURONTIN) 9-10 [id number] mg by 4 [id number] 300 MG 15:01: 3D mouth 3 capsule 57 (three) times daily. estrogens, 2020-0 Yes 1mg QD Take 1 mg IMAGING ACCOUNT MANAGER I:118 conjugated, 9-10 by mouth [id number] (PREMARIN) 15:01: daily. 1.25 MG 57 tablet pantoprazol 2020-0 Yes 40mg Q.5D Take 40 mg NPI:118 e 9-10 by mouth 2 [id number] (PROTONIX) 15:01: (two) 40 MG 57 times tablet daily. ferrous 2020-0 Yes 65mg Take 65 mg NPI: 118 sulfate 325 9-10 by mouth [id number] [id number] (65 FE) MG 15:01: daily with tablet 57 breakfast. fluconazole 2020-0 Yes 100mg QD Take 100 N PI:118 (DIFLUCAN) 9-10 mg by [id number] 100 MG 15:01: mouth tablet 57 daily. calcium 2020-0 Yes 600mg QD Take 600 NPI:1 18 carbonate 9-10 mg by [id number] (OS-PAYAM) 15:01: mouth 600 mg 57 daily. calcium (1,500 mg) Tab cholecalcif 2020-0 Yes 5000U QD Take 5,000 NPI:118 estephania, 9-10 Units by [id number] vitamin D3, 15:01: mouth 125 mcg 57 daily. (5,000 unit) Tab zoledronic 2020-0 Yes Inject NPI:1 18 acid/mannit 9-10 intravenou 46 [id number] ol-water 15:01: sly. (RECLAST 57 IV) sodium 2020-0 Yes Inject NPI:118 chloride 9-10 intravenou [id number] 47 0.9% (NS) 15:01: sly SolP with 57 continuous HYDROmorpho . ne 10 mg/mL Soln 20 mcg/mL baclofen 2020-0 Yes 10mg Q.09158692 Take 10 mg NPI:118 (LIORESAL) 9-10 [id number] by mouth 3 [id number] 10 MG 15:01: 3D (three) tablet 57 times daily. sertraline 2020-0 Yes 25mg QD Take 25 mg N PI:118 (ZOLOFT) 25 9-10 by mouth [id number] 847 MG tablet 15:01: daily. 57 hydrocortis 2020-0 202- No 25mg Place 25 [facility] one 9-10 09-21 mg [facility] (ANUSOL-) 00:00: 00:00 rectally o f 25 MG 00 :00 at Medicin suppository bedtime. e hydrocortis 2020-0 2020- No 25mg Place 25 [facility] one 9-10 09-21 mg [facility] (ANUSOL-HC) 00:00: 00:00 rectally o f 25 MG 00 :00 at Medicin suppository bedtime. e tramadol 2019- No 50mg Take 50 mg [facility] (ULTRAM) 50 12-16 by mouth [facility] MG tablet 19:30: 00:00 daily. of 33 :00 Medicin e sucralfate 2020- No 1g Take 1 g [facility] (CARAFATE) 12-16 by mouth Ronny ege 1 g tablet 19:30: 00:00 daily. of 30 :00 Medicin e predniSONE 2019- No 5mg Take 5 mg [facility] (DELTASONE) 12-16 by mouth Col [facility]ge 5 MG tablet 19:30: 00:00 daily. of 24 :00 Medicin e metronidazo 2019- No 500mg Take 500 [facility] le (FLAGYL) 12-1618 mg by [facility] 500 MG 19:30: 00:00 mouth of tablet 21 :00 daily. Medicin e metoclopram 2019- No 10mg Take 10 mg Kev sam 12-16 by mouth [facility] (REGLAN) 10 19:30: 00:00 every 6 of MG tablet 21 :00 hours. Medicin e hydrocortis 2019- No 20mg Take 20 mg Kev one 12-16 by [facility] (CORTEF) 20 19:30: 00:00 daily. of MG tablet 15 :00 Medicin e diazepam 2019- No 10mg Take 10 mg [facility] (VALIUM) 10 12-16 by mouth [facility] mg tablet 19:30: 00:00 daily. of 12 :00 Medicin e celecoxib 2019- No 100mg Take 100 [facility] (CELEBREX) 12-16-18 mg by [facility] 100 MG 19:30: 00:00 mouth of capsule 09 :00 daily. Medicin e alprazolam 2020- No alprazolam [facility] (XANAX) 1 12-1618 1 mg College MG tablet 19:30: 00:00 tablet T1T o f 03 :00 PO QD Medicin e Sertraline Yes Take by [facility] HCl (ZOLOFT 8-18 mouth. Colleg e OR) 18:53: of 39 Medicin e clonazePAM 2020-0 Yes 1mg Take 1 mg [facility] (KLONOPIN 8-18 by mouth 3 Ronny ege OR) 18:53: times of 39 daily. Medicin e busPIRone 2020-0 Yes 10mg Take 10 mg [facility] (BUSPAR) 10 8-18 by mouth 3 Co llege MG tablet 18:53: times of 39 daily. Medicin e estradiol 2020-0 Yes estradiol [facility] (ESTRACE) 1 8-18 1 mg College MG tablet 18:53: tablet of 39 Medicin e raNITIdine 2020-0 Yes Kev HCl (ZANTAC 8-18 College OR) 18:53: of 39 Medicin e cefUROXime 2020-0 Yes cefuroxime [facility] (CEFTIN) 8-18 axetil 500 Colle ge 500 MG 18:53: mg tablet of tablet 39 Medicin e escitalopra 2020-0 Yes 20mg Take 20 mg [facility] m (LEXAPRO) 8-18 by mouth Ronny ege 20 MG 18:53: daily. of tablet 39 Medicin e fluconazole 2020-0 Yes 150mg Take 150 [facility] (DIFLUCAN) 8-18 mg by [facility] 150 MG 18:53: mouth of tablet 39 daily. Medicin e loperamide 2020-0 Yes 2mg Take 2 mg [facility] (IMMODIUM) 8-18 by mouth Colle ge 2 MG 18:53: daily. of capsule 39 Medicin e Mesalamine 2020-0 Yes 1.2mg Take 1.2 [facility] 1.2 g TBEC 8-18 mg by College 18:53: mouth of 39 daily. Medicin e montelukast 2020-0 Yes 10mg Take 10 mg [facility] (SINGULAIR) 8-18 by mouth Ronny ege 10 MG 18:53: daily. of tablet 39 Medicin e quetiapine 2020-0 Yes 50mg Take 50 mg [facility] (SEROQUEL) 8-18 by mouth Colle ge 50 MG 18:53: daily. of tablet 39 Medicin e fluconazole 2020-0 Yes 150mg Take 150 [facility] (DIFLUCAN) 8-18 mg by [facility] 150 MG 13:53: mouth of tablet 39 daily. Medicin e fluconazole 2020-0 Yes 150mg Take 150 [facility] (DIFLUCAN) 8-18 mg by [facility] 150 MG 13:53: mouth of tablet 39 daily. Medicin e fluconazole 2019-0 Yes 150mg Take 150 [facility] (DIFLUCAN) 8-18 mg by [facility] 150 MG 13:53: mouth of tablet 39 daily. Medicin e Na 2019- Yes [SUPREP] [facility] Sulfate-K 8-14 Take as College Sulfate-Mg 00:00: directed. of Sulf 00 Medicin (SUPREP e BOWEL PREP KIT) 17.5-3.13-1 .6 GM/177ML SOLN diphenoxyla 2019- Yes 1{tbl} Take 1 Tab Kev te-atropine 8-14 by mouth 4 Co llege (LOMOTIL) 00:00: times of 2.5-0.025 00 daily as Medici n MG per needed for e tablet Diarrhea. Na 2020- No [SUPREP] K[facility] Sulfate-K 8-14 01-19 Take as Colleg e Sulfate-Mg 00:00: 00:00 directed. o f Sulf 00 :00 Medicin (SUPREP e BOWEL PREP KIT) 17.5-3.13-1 .6 GM/177ML SOLN Na 2020- No [SUPREP] [facility] Sulfate-K 8-14 01-19 Take as Colleg e Sulfate-Mg 00:00: 00:00 directed. o f Sulf 00 :00 Medicin (SUPREP e BOWEL PREP KIT) 17.5-3.13-1 .6 GM/177ML SOLN valACYclovi 2019- Yes valacyclov Methodi r (VALTREX) 8-[address] 1000 MG 00:00: tablet [facility] tablet 00 l STELARA 90 2020-0 Yes [id number] INJECT [facility] MG/ML 3-27 90MG [facility] injection 00:00: SUBCUTANEO of 00 USLY EVERY Medicin 28 DAYS e celecoxib 2019-0 Yes 100mg Take 100 [facility] (CELEBREX) 3-12 mg by [facility] 100 MG 16:41: mouth of capsule 28 daily. Medicin e predniSONE 2020-0 Yes 5mg Take 5 mg [facility] (DELTASONE) 3-12 by mouth [facility] 5 MG tablet 16:41: daily. of 28 Medicin e hydrocortis 2019-0 Yes 20mg Take 20 mg Kev one 3-12 by mouth [facility] (CORTEF) 20 16:41: daily. of MG tablet 28 Medicin e quetiapine 2020-0 Yes 50mg Take 50 mg [facility] (SEROQUEL) 3-12 by mouth [facility] 50 MG 16:41: daily. of tablet 28 Medicin e sucralfate 2020-0 Yes 1g Take 1 g [facility] (CARAFATE) 3-12 by mouth [facility] 1 g tablet 16:41: daily. of 28 Medicin e tramadol 2020-0 Yes 50mg Take 50 mg [facility] (ULTRAM) 50 3-12 by mouth [facility] MG tablet 16:41: daily. of 28 Medicin e escitalopra 2020-0 Yes 20mg Take 20 mg [facility]ev [facility] (LEXAPRO) 3-12 by mouth [facility] 20 MG 16:29: daily. of tablet 07 Medicin e diazepam 2020-0 Yes 10mg Take 10 mg [facility] (VALIUM) 10 3-12 by mouth [facility] mg tablet 16:29: daily. of 07 Medicin e fluconazole 2020-0 Yes 150mg Take 150 [facility] (DIFLUCAN) 3-12 mg by [facility] 150 MG 16:29: mouth of tablet 07 daily. Medicin e loperamide 2020-0 Yes 2mg Take 2 mg [facility] (IMMODIUM) 3-12 by mouth [facility] 2 MG 16:29: daily. of capsule 07 Medicin e Mesalamine 2020-0 Yes 1.2mg Take 1.2 [facility] 1.2 g TBEC 3-12 mg by [facility] 16:29: mouth of 07 daily. Medicin e metronidazo 2020-0 Yes 500mg Take 500 [facility] (FLAGYL) 3-12 mg by [facility] 500 MG 16:29: mouth of tablet 07 daily. Medicin e metoclopram 2020-0 Yes 10mg Take 10 mg [facility] sam 3-12 by mouth [facility] (REGLAN) 10 16:29: every 6 of MG tablet 07 hours. Medicin e montelukast 2020-0 Yes 10mg Take 10 mg [facility] (SINGULAIR) 3-12 by mouth [facility] 10 MG 16:29: daily. of tablet 07 Medicin e estradiol 2020-0 Yes estradiol [facility] (ESTRACE) 1 3-12 1 mg [facility] MG tablet 16:19: tablet of 16 Medicin e raNITIdine 2020-0 Yes [facility] HCl (ZANTAC 3-12 College OR) 16:19: of 16 Medicin e cefUROXime 2020-0 Yes cefuroxime [facility] (CEFTIN) 3-12 axetil 500 [facility] 500 MG 16:19: mg tablet of tablet 16 Medicin e alprazolam 2020-0 Yes alprazolam [facility] (XANAX) 1 3-12 1 mg [facility] MG tablet 16:19: tablet T1T of 16 PO QD Medicin e Sertraline 2020-0 Yes Take by [facility] HCl (ZOLOFT 3-12 mouth. Colleg e [...] 39 daily. Medicin e pantoprazol 2020-0 Yes [id number] 40mg Take 1 Tab [facility] e 3-02 by mouth 2 College (PROTONIX) 00:00: times of 40 MG 00 daily Medicin tablet (before e meals). 1 tablet by mouth every day pantoprazol 2020-0 Yes [id number] 40mg Take 1 Tab [facility] e 3-02 by mouth 2 [facility] (PROTONIX) 00:00: times of 40 MG 00 daily Medicin tablet (before e meals). 1 tablet by mouth every day PANTOPRAZOL 2020-0 2020- No 40mg Take 40 mg [facility] E SODIUM OR 2-25 02-25 by mouth [facility] 19:38: 00:00 daily. of 50 :00 Medicin e Pantoprazol 2020-0 Yes 40mg Take 40 mg [facility] e Sodium 40 2-25 by mouth [facility] MG PACK 00:00: daily. of 00 Medicin e Pantoprazol 2020-0 Yes 40mg Take 40 mg [facility] Sodium 40 2-25 by mouth [facility] MG PACK 00:00: daily. of 00 Medicin e Sertraline 2020-0 Yes Take by [facility] HCl (ZOLOFT 2-19 mouth. Colleg e OR) 16:59: of 05 Medicin e PANTOPRAZOL 2020-0 Yes 40mg Take 40 mg [facility] E SODIUM OR 2-19 by mouth Ronny [...] Medicin e Sertraline 2020-0 Yes Take by [facility] HCl (ZOLOFT 2-19 mouth. Colleg e [...] times of 05 daily. Medicin e acetaminoph 2020-0 2020- No 300mg 300 mg as [facility] en-codeine 2-12 02-12 needed. [facility]le [facility] (TYLENOL/CO 14:22: 00:00 of DEINE #3) 23 :00 Medicin 300-30 MG e per tablet Sertraline 2020-0 Yes Take by [facility] HCl (ZOLOFT 2-12 mouth. Colleg e OR) 14:21: of 59 Medicin e PANTOPRAZOL 2020-0 Yes 40mg Take 40 mg [facility] E SODIUM OR 2-12 by mouth [facility] 14:21: daily. of 59 Medicin e clonazePAM 2020-0 Yes 1mg Take 1 mg [facility] (KLONOPIN 2-12 by mouth 3 [facility] OR) 14:21: times of 59 daily. Medicin e busPIRone 2020-0 Yes 10mg Take 10 mg [facility] (BUSPAR) 10 2-12 by mouth 3 Co [facility] MG tablet 14:21: times of 59 daily. Medicin e busPIRone 2019-1 Yes buspirone [facility] (BUSPAR) 15 1-[address] MG tablet 00:00: tablet one [facility] 00 po four l times a day acetaminoph Yes 1{tbl} Take 1 Tab K[facility] en-codeine 823 by mouth. [facility] (TYLENOL 00:00: of #4) 300-60 00 Medicin MG per e tablet acetaminoph 2021- No 1{tbl} Q.5D Take 1 M ethodi en-codeine 12-21-[address] (TYLENOL 00:00: 00:00 mouth 2 Hospi ta WITH 00 :00 (two) l CODEINE #4) times a 300-60 mg day. per tablet gabapentin 2021- No TAKE Method i (NEURONTIN) 12-21 01-06 ONE(1) st 300 mg 00:00: 00:00 CAPSULE BY [facility] capsule 00 :00 MOUTH l TWICE DAILY acetaminoph 2019- No 1{tbl} Take 1 Tab [facility] en-codeine 8 08-18 by mouth. Col lege (TYLENOL 00:00: 00:00 of #4) 300-60 00 :00 Medicin MG per e tablet busPIRone Yes 10mg Take 10 mg [facility] (BUSPAR) 10 8-20 by mouth 3 Co [facility] MG tablet 15:05: times of 52 daily. Medicin e Sertraline Yes Take by [facility] HCl (ZOLOFT 8-20 mouth. Colleg e OR) 15:03: of 59 Medicin e PANTOPRAZOL Yes 40mg Take 40 mg [facility] E SODIUM OR 8-20 by mouth [facility] 15:03: daily. of 59 Medicin e clonazePAM Yes 1mg Take 1 mg [facility] (KLONOPIN 8-20 by mouth 3 [facility] OR) 15:03: times of 59 daily. Medicin e acetaminoph Yes 300mg 300 mg as [facility] en-codeine 8-20 needed. Colleg e (TYLENOL/CO 15:03: of DEINE #3) 59 Medicin 300-30 MG e per tablet cholecalcif Yes 2000U Take 2,000 [facility] estephania, 8-[address] vitamin D3, 00:00: mouth. [facility] (VITAMIN 00 l D3) 2,000 unit capsule capsule dicyclomine Yes [id number] 10mg Take 1 Cap [facility] (BENTYL) 10 8-20 by mouth 4 Co llege MG capsule 00:00: times of 00 daily Medicin (before e meals and nightly). 1 by mouth four times a day Ferrous 2019-0 Yes [id number] 325mg Take 325 [facility] Sulfate 8-20 mg by [facility] (IRON) 325 00:00: mouth two of (65 Fe) MG 00 times Medicin TABS daily. e Cholecalcif 2019-0 Yes [id number] 2000U Take 2,000 [facility] estephania 8-20 Units by [facility] (VITAMIN D) 00:00: mouth of 2000 units 00 daily. Medicin CAPS e Cholestyram 2019-0 Yes [id number] 4g Take 4 g Kev ine 4 8-20 by mouth 3 College GM/DOSE 00:00: times of POWD 00 daily. Medicin e dicyclomine 2019- Yes [id number] 10mg Take 1 Cap [facility] (BENTYL) 10 8-20 by mouth 4 Co l[facility] MG capsule 00:00: times of 00 daily Medicin (before e meals and nightly). 1 by mouth four times a day Ferrous 2018-0 Yes [id number] 325mg Take 325 [facility] Sulfate 8-20 mg by [facility] (IRON) 325 00:00: mouth two of (65 Fe) MG 00 times Medicin TABS daily. e Cholecalcif 2019-0 Yes [id number] 2000U Take 2,000 Kev estephania 8-20 Units by [facility] (VITAMIN D) 00:00: mouth of 2000 units 00 daily. Medicin CAPS e Cholestyram 2019-0 Yes [id number] 4g Take 4 g [facility]ev ine 4 8-20 by mouth 3 College GM/DOSE 00:00: times of POWD 00 daily. Medicin e dicyclomine 2019-0 Yes [id number] 10mg Take 1 Cap [facility] (BENTYL) 10 8-20 by mouth 4 Co [facility] MG capsule 00:00: times of 00 daily Medicin (before e meals and nightly). 1 by mouth four times a day Ferrous 2019-0 Yes [id number] 325mg Take 325 [facility] Sulfate 8-20 mg by [facility] (IRON) 325 00:00: mouth two of (65 Fe) MG 00 times Medicin TABS daily. e Cholecalcif 2019-0 Yes [id number] 2000U Take 2,000 Kev estephania 8-20 Units by [facility] (VITAMIN D) 00:00: mouth of 2000 units 00 daily. Medicin CAPS e Cholestyram 2019-0 Yes [id number] 4g Take 4 g [facility]ev ine 4 8-20 by mouth 3 College GM/DOSE 00:00: times of POWD 00 daily. Medicin e dicyclomine 2019-0 Yes [id number] 10mg Take 1 Cap [facility] (BENTYL) 10 8-20 by mouth 4 Co [facility] MG capsule 00:00: times of 00 daily Medicin (before e meals and nightly). 1 by mouth four times a day Ferrous 2019-0 Yes [id number] 325mg Take 325 [facility] Sulfate 8-20 mg by [facility] (IRON) 325 00:00: mouth two of (65 Fe) MG 00 times Medicin TABS daily. e Cholecalcif 2019-0 Yes [id number] 2000U Take 2,000 Kev estephania 8-20 Units by [facility] (VITAMIN D) 00:00: mouth of 2000 units 00 daily. Medicin CAPS e Cholestyram 2019-0 Yes [id number] 4g Take 4 g [facility] ine 4 8-20 by mouth 3 [facility] GM/DOSE 00:00: times of POWD 00 daily. Medicin e dicyclomine 2019-0 Yes [id number] 10mg Take 1 Cap [facility] (BENTYL) 10 8-20 by mouth 4 [facility] MG capsule 00:00: times of 00 daily Medicin (before e meals and nightly). 1 by mouth four times a day Ferrous 2019-0 Yes [id number] 325mg Take 325 [facility] Sulfate 8-20 mg by [facility] (IRON) 325 00:00: mouth two of (65 Fe) MG 00 times Medicin TABS daily. e Cholecalcif 2019-0 Yes [id number] 2000U Take 2,000 [facility] estephania 8-20 Units by [facility] (VITAMIN D) 00:00: mouth of 2000 units 00 daily. Medicin CAPS e dicyclomine 2019-0 Yes [id number] 10mg Take 1 Cap [facility] (BENTYL) 10 8-20 by mouth 4 [facility] MG capsule 00:00: times of 00 daily Medicin (before e meals and nightly). 1 by mouth four times a day Ferrous 2019-0 Yes [id number] 325mg Take 325 [facility] Sulfate 8-20 mg by [facility] (IRON) 325 00:00: mouth two of (65 Fe) MG 00 times Medicin TABS daily. e Cholecalcif 2018- Yes [id number] 2000U Take 2,000 [facility] estephania 8-20 Units by [facility] (VITAMIN D) 00:00: mouth of 2000 units 00 daily. Medicin CAPS e Ferrous 2018-0 Yes [id number] 325mg Take 325 [facility] Sulfate 8-20 mg by [facility] (IRON) 325 00:00: mouth two of (65 Fe) MG 00 times Medicin TABS daily. e Cholecalcif 2018- Yes [id number] 2000U Take 2,000 Kev estephania 8-20 Units by [facility] (VITAMIN D) 00:00: mouth of 2000 units 00 daily. Medicin CAPS e Ferrous 2018- Yes [id number] 325mg Take 325 [facility] Sulfate 8-20 mg by [facility] (IRON) 325 00:00: mouth two of (65 Fe) MG 00 times Medicin TABS daily. e Cholecalcif Yes [id number] 2000U Take 2,000 [facility] estephania 8-20 Units by [facility] (VITAMIN D) 00:00: mouth of 2000 units 00 daily. Medicin CAPS e Ferrous 2018- Yes [id number] 325mg Take 325 [facility] Sulfate 8-20 mg by [facility] (IRON) 325 00:00: mouth two of (65 Fe) MG 00 times Medicin TABS daily. e Cholecalcif Yes [id number] 2000U Take 2,000 [facility] estephania 8-20 Units by [facility] (VITAMIN D) 00:00: mouth of 2000 units 00 daily. Medicin CAPS e Cholestyram 2018- Yes [id number] 4g Take 4 g [facility] ine 4 8-20 by mouth 3 [facility] GM/DOSE 00:00: times of POWD 00 daily. Medicin e dicyclomine 2020- No [id number] 10mg Take 1 Cap [facility] (BENTYL) 10 8-20 09-21 by mouth 4 [facility] MG capsule 00:00: 00:00 times of 00 :00 daily Medicin (before e meals and nightly). 1 by mouth four times a day dicyclomine 2020- No [id number] 10mg Take 1 Cap [facility] (BENTYL) 10 12-18 09-21 by mouth 4 C [facility] MG capsule 00:00: 00:00 times of 00 :00 daily Medicin (before e meals and nightly). 1 by mouth four times a day Cholestyram 2019- No [id number] 4g Take 4 g [facility] ine 4 12-18 0818 by mouth 3 [facility] GM/DOSE 00:00: 00:00 times of POWD 00 :00 daily. Medicin e escitalopra Yes TK 1 T PO M ethodi m (LEXAPRO) 8-[address] 10 MG 00:00: Hospita tablet 00 l escitalopra Yes escitalopr [facility] (LEXAPRO) 8-08 am 10 mg [facility] 10 MG 00:00: tablet of tablet 00 Medicin e escitalopra Yes escitalopr [facility] m (LEXAPRO) 8-08 am 10 mg [facility] 10 MG 00:00: tablet of tablet 00 Medicin e escitalopra Yes escitalopr [facility] m (LEXAPRO) 8-08 am 10 mg [facility] 10 MG 00:00: tablet of tablet 00 Medicin e escitalopra Yes escitalopr [facility] m (LEXAPRO) 8-08 am 10 mg [facility] 10 MG 00:00: tablet of tablet 00 Medicin e escitalopra Yes escitalopr [facility] m (LEXAPRO) 8-08 am 10 mg [facility] 10 MG 00:00: tablet of tablet 00 Medicin e hydrocortis 2018- No 10mg Take 1 Tab [facility]ev one 11-27 10-29 by mouth College (CORTEF) [...] 00:00 Hospita tablet 00 :00 l terconazole 2- No I 1 Metho di (TERAZOL 7) 605-06 APPLICATOR s t 0.4 % 00:00: 00:00 FUL [facility]ospita vaginal 00 :00 VAGINALLY l cream QD FOR 7 DAYS pantoprazol Yes TAKE 1 Meth deepti e 6-[address] (PROTONIX) 00:00: MOUTH Hospit a 40 MG EC 00 TWICE l tablet DAILY Clotrimazol Yes [id number] 1{appli Place 1 [facility] e 5-07 cation} applicatio [facility] (CLOTRIMAZO 00:00: n of ) 1 % 00 vaginally Medic in CREA daily. e pantoprazol Yes [id number] 40mg Take 1 Tab [facility] e 5-07 by mouth 2 [facility] (PROTONIX) 00:00: times of 40 MG 00 daily Medicin tablet (before e meals). 1 tablet by mouth every day Ustekinumab Yes 90mg Inject 90 [facility] (STELARA) 5-07 mg into [facility] 90 MG/ML 00:00: the skin of injection 00 every 28 Medici n days. e Clotrimazol Yes [id number] 1{appli Place 1 [facility] e 5-07 cation} applicatio [facility] (CLOTRIMAZO 00:00: n of ) 1 % 00 vaginally Medic in CREA daily. e pantoprazol Yes [id number] 40mg Take 1 Tab [facility] e 5-07 by mouth 2 [facility] (PROTONIX) 00:00: times of 40 MG 00 daily Medicin tablet (before e meals). 1 tablet by mouth every day Ustekinumab Yes 90mg Inject 90 [facility] (STELARA) 5-07 mg into [facility] 90 MG/ML 00:00: the skin of injection 00 every 28 Medici n days. e Clotrimazol Yes [id number] 1{appli Place 1 [facility] e 5-07 cation} applicatio [facility] (CLOTRIMAZO 00:00: n of ) 1 % 00 vaginally Medic in CREA daily. e Ustekinumab Yes 90mg Inject 90 [facility] (STELARA) 5-07 mg into [facility] 90 MG/ML 00:00: the skin of injection 00 every 28 Medici n days. e Clotrimazol Yes [id number] 1{appli Place 1 [facility] e 5-07 cation} applicatio [facility] (CLOTRIMAZO 00:00: n of ) 1 % 00 vaginally Medic in CREA daily. e Ustekinumab Yes 90mg Inject 90 [facility] (STELARA) 5-07 mg into [facility] 90 MG/ML 00:00: the skin of injection 00 every 28 Medici n days. e Clotrimazol Yes [id number] 1{appli Place 1 [facility] e 5-07 cation} applicatio [facility] (CLOTRIMAZO 00:00: n of ) 1 % 00 vaginally Medic in CREA daily. e Clotrimazol Yes [id number] 1{appli Place 1 [facility] e 5-07 cation} applicatio [facility] (CLOTRIMAZO 00:00: n of ) 1 % 00 vaginally Medic in CREA daily. e Clotrimazol Yes [id number] 1{appli Place 1 [facility] e 5-07 cation} applicatio [facility] e (CLOTRIMAZO 00:00: n of ) 1 % 00 vaginally Medic in CREA daily. e Clotrimazol Yes [id number] 1{appli Place 1 [facility] e 5-07 cation} applicatio [facility] e (CLOTRIMAZO 00:00: n of ) 1 % 00 vaginally Medic in CREA daily. e fluconazole Yes [id number] 150mg Take 1 Tab [facility] (DIFLUCAN) 5-07 by mouth [facility] 150 MG 00:00: daily. - of tablet 00 then Medicin repeat e dose in 7 weeks Clotrimazol Yes [id number] 1{appli Place 1 [facility] e 5-07 cation} applicatio [facility] (CLOTRIMAZO 00:00: n of ) 1 % 00 vaginally Medic in CREA daily. e pantoprazol Yes [id number] 40mg Take 1 Tab [facility] e 5-07 by mouth 2 College (PROTONIX) [...] Hos augustin injection 00 :00 l pantoprazol 2019- No [id number] 40mg Take 1 Tab [facility] e 5-07 03-02 by mouth 2 [facility] (PROTONIX) 00:00: 00:00 times of 40 MG 00 :00 daily Medicin tablet (before e meals). 1 tablet by mouth every day fluconazole 2020- No [id number] 150mg Take 1 Tab [facility] (DIFLUCAN) -07 02-12 by mouth [facility] 150 MG 00:00: [...] e Oxycodone 2020- No TK ONE T [facility] HCl 10 MG 5-01 -19 PO Q 4 H [facility] TABS 00:00: 00:00 PRN P of 00 :00 Medicin e Oxycodone 2020- No TK ONE T [facility] HCl 10 MG 5-01 -19 PO Q 4 H [facility] TABS 00:00: 00:00 PRN P of 00 :00 Medicin e gabapentin Yes 300mg Take 300 [facility] (NEURONTIN) 4-25 mg by [facility] 300 MG 00:00: mouth of capsule 00 daily. Medicin e gabapentin 2019-0 Yes 300mg Take 300 [facility] (NEURONTIN) 4-25 mg by [facility] 300 MG 00:00: mouth of capsule 00 daily. Medicin e gabapentin 2019-0 Yes 300mg Take 300 [facility] (NEURONTIN) 4-25 mg by [facility] 300 MG 00:00: mouth of capsule 00 daily. Medicin e gabapentin 2019-0 Yes 300mg Take 300 [facility] (NEURONTIN) 4-25 mg by [facility] 300 MG 00:00: mouth of capsule 00 daily. Medicin e gabapentin 2019-0 Yes 300mg Take 300 [facility] (NEURONTIN) 4-25 mg by [facility] 300 MG 00:00: mouth of capsule 00 daily. Medicin e clindamycin Yes TK ONE C [facility] (CLEOCIN) 4-25 PO Q 6 College 300 MG 00:00: HOURS FOR of capsule 00 14 DAYS Medicin e clindamycin 2020- No TK ONE C [facility] (CLEOCIN) 4-25 02-12 PO Q 6 Colleg e 300 MG 00:00: 00:00 HOURS FOR of capsule 00 :00 14 DAYS Medicin e STELARA 90 2017-05 Yes INJECT NPI:1 18 mg/mL Syrg 2-12 90MG [id number] 00:00: SUBCUTANEO 00 USLY 8 WEEKS AFTER INNDUCTION DOSE THEN EVERY 8 WEEKS THEREAFTER STELARA 90 2017-05 Yes INJECT NPI:1 18 mg/mL Syrg 2-12 90MG [id number] 00:00: SUBCUTANEO 00 USLY 8 WEEKS AFTER INNDUCTION DOSE THEN EVERY 8 WEEKS THEREAFTER ustekinumab 2017-05 Yes INJECT Meth deepti (STELARA) 2-[address] 90 mg/mL 00:00: SUBCUTANEO [facility] injection 00 USLY EVERY l 28 DAYS Ondansetron 2016-05 No 4 mg, Memor ia 0-21 Route: l 23:36: IVP, Drug form: INJ, ONCE, Dosing Weight 52.955, kg, Priority: STAT, Start date: 02/18/17 18:36:00 CDT, Stop date: 02/18/17 18:36:00 CDT Hydromorpho 2016-05 No 1 mg, Memor ia ne 0-21 Route: l 23:01: IVP, Drug form: INJ, ONCE, Dosing Weight 52.955, kg, [...] Chloride 0-21 2,000 l 0.9% 20:51: ml/hr, Amrkus (Bolus) IV 00 Infuse Over: 30 minutes, [...] tab, PO, l tablet 15:02: Daily, X [place] 00 30 day, # 60 tab, 0 Refill(s) Fluconazole 2017 Yes 150 mg = 1 [facility] 150 [...] tab, PO, l Tablet 14:34: QID, PRN [facility] [Xanax] 00 Anxiety, X 5 day, # 20 tab, 0 Refill(s) Flagyl No Notes: [facility] 6-13 (Same as: l 16:00: Flagyl) [place] Take with food/ avoid alcohol mesalamine No Notes: Memor ia 6-13 (Same as: l 14:31: Delzicol) Markus 00 mesalamine No 2.4 gm, 2 Me moria 1200 MG 6-13 tab, l Enteric 14:00: Route: PO, Herm chelsey Coated 00 Drug form: Tablet ECTAB, Daily, Dosing Weight 51.392, kg, Start date: 10/11/16 9:00:00 CDT, Duration: 30 day, Stop date: 11/09/16 9:00:00 CDT remove No Notes: [facility] patch 6-13 Remove old l 10:00: patch Markus 00 before applicatio n of new patch. WASTE: F/P - P Waste Black; E - P Waste Black Alprazolam No Notes: Memor ia 0.25 MG 6-12 With food l Oral Tablet 14:51: or milk Her hogan [Xanax] 00 (Same as: Xanax) pantoprazol No Notes: For [facility]oria e 6-12 IV push l 14:30: reconstitu [place] te with 10 ml 0.9% sodium chloride and push over 2 minutes. (Same as: Protonix) methylPREDN No Notes: Isreal adiel ISolone 6-12 (Same l SODium 14:00: as:Solu-ME Prachi nn SUCCinate 00 DROL, A-Methapre d) Nicotine No Notes: [facility] 6-12 (Same as: l 10:00: Habitrol) [place] 00 "Remove old patch before applicatio n of new patch" WASTE: F/P - P Waste Black; E - P Waste Black Flagyl No Notes: [facility] 6-12 (Same as: l 08:00: Flagyl) Markus 00 Avoid alcohol. pneumococca No 0.5 mL, Mem oria l capsular -12 Route: IM, l polysacchar 07:51: ONCALL, Her [...] 0.9% 6-12 (Same as: l 07:06: BD [place] 00 Posiflush) Acetaminoph No Notes: Isreal adiel en 325 MG / 6-12 (Same as: l Hydrocodone 07:06: [place] Prachi nn Bitartrate 00 325/5) Do 5 MG Oral not exceed Tablet 4gm/day of acetaminop hen. Morphine No Notes: [facility] 6-12 (Same l 07:06: as:MORPhin e Sulfate) Ondansetron No Notes: Isreal adiel 6-12 (Same as: l 07:06: Zofran) Markus MEDICATION WASTE Product Size: 4 mg Product Wasted: ___ mg Sodium No 1,000 mL, Memori a Chloride 6-12 Rate: 125 l 0.154 07:06: ml/hr, [facility] MEQ/ML 00 Infuse Injectable over: 8 Solution hr, Route: IV, Dosing Weight 52.727 kg, Total Volume: 1,000, Start date: 10/10/16 2:06:00 CDT, Duration: 30 day, Stop date: 11/09/16 2:05:00 CDT Hydromorpho 2016-0 No 1 mg, 1 Mem oria ne 6-12 mL, Route: l 05:36: IVP, Drug form: INJ, ONCE, Dosing Weight 52.727, kg, Priority: STAT, Start date: 10/10/16 0:36:00 CDT, Stop date: 10/10/16 0:36:00 CDT Ondansetron 2016- No Notes: Isreal adiel -12 (Same as: l 03:54: Zofran) MEDICATION WASTE Product Size: 4 mg Product Wasted: ___ mg Hydromorpho 2016- No 2 mg, 2 Mem oria ne 6-12 mL, Route: l 03:54: IVP, Drug form: INJ, ONCE, Dosing Weight 52.727, kg, Priority: STAT, Start date: 10/09/16 22:54:00 CDT, Stop date: 10/09/16 22:54:00 CDT Sodium 2016-0 No 1,000 mL, Memori a Chloride 6-12 [...] Memoria 0-12 Route: l 20:49: IVP, ONCE, [place] 00 Dosing Weight 59.091, kg, Priority: STAT, Start [...] Potassium No 40 mEq, Memor ia Chloride 08-13 Route: PO, l 1.33 MEQ/ML 13:12: Drug form: Markus Oral 00 LIQ, ONCE, Solution Dosing Weight 47.727, kg, Priority: STAT, Start date: 08/13/14 8:12:00, Stop date: 08/13/14 8:12:00 Sodium No 1,000 mL, Memori a Chloride 08-13 1,000 l 0.154 12:04: ml/hr, [place] MEQ/ML 00 Infuse Injectable Over: 1 Solution [...] PO, l Oral 16:48: BID, # 14 [place] Capsule 00 cap, 0 [Macrobid] Refill(s) Ondansetron [...] a 05-09 0.5 mL, l 14:49: Route: [place] 00 IVP, Drug form: INJ, ONCE, Dosing Weight 50.909, kg, Priority: STAT, Start date: 03/09/14 8:49:00, Stop date: 03/09/14 8:49:00 potassium 2013-05 No Notes: Memori a chloride 20 05-09 (Same as: l mEq/100 mL 14:10: KCL) Markus intravenous Infuse no solution faster than 10 mEq/hr if given peripheral ly. Ondansetron 2013-05 No 4 mg, Memor ia 05-09 Route: l 12:33: IVP, ONCE, Dosing Weight 50.909, kg, Priority: STAT, Start date: 03/09/14 6:33:00, Stop date: 03/09/14 6:33:00 Hydromorpho 2013-05 No 0.5 mg, Mem oria ne 05-09 Route: l 12:33: IVP, ONCE, Dosing Weight 50.909, kg, Priority: STAT, Start date: 03/09/14 6:33:00, Stop date: 03/09/14 6:33:00 Saline 2013-05 No Notes: [facility] Flush 0.9% 05-09 (Same as: l 12:33: BD [place] 00 Posiflush) Sodium 2013-05 No 1,000 mL, Memori a Chloride 05-09 Infuse l 0.154 12:33: Over: 1 [place] MEQ/ML 00 hr, Route: Injectable IV, ONCE, Solution Priority: STAT, Dosing Weight 50.909 kg, Start date: 03/09/14 6:33:00, Duration: 1 doses or times, Stop date: 03/09/14 6:33:00 Nitrofurant Yes 100 mg = 1 [facility]oria oin 100 MG 01-14 cap, PO, l Oral 21:37: BID, # 14 [place] Capsule 00 cap, 0 [Macrobid] Refill(s) Acetaminoph No 1 tab, Isreal adiel en 325 MG / 01-14 Route: PO, l Hydrocodone 20:51: Drug Form: Mark[facility] Bitartrate 00 TAB, 5 MG Oral Dosing Tablet Weight [[place] 50.909, 5/325] kg, ONCE, STAT, Start date: 01/14/14 15:51:00, Stop date: 01/14/14 15:51:00 Potassium No Notes: Memori a Chloride 20 01-14 (Same as: l MEQ 16:33: K-Dur 20) [place] Extended 00 "Do Not Release Crush" Tablet With food and full glass of water Macrobid No Notes: Not Mem oria 01-14 Recommende l 16:20: d for [place] 00 patients with CrCl< 50 ml/min With food (Same as:Macroda ntin) Acetaminoph No 2 tab, Isreal adiel en 325 MG / 01-14 Route: PO, l Hydrocodone 13:20: Dosing Herm chelsey Bitartrate 00 Weight 5 MG Oral 50.909, Tablet kg, ONCE, [[place] Start 5/325] date: 01/14/14 8:20:00, Stop date: 01/14/14 8:20:00 Acetaminoph Yes 1 tab, PO, Memoria en 325 MG / 01-14 Q4-6H, l Hydrocodone 05:59: Pain, # 12 [place] Bitartrate 00 tab, 0 5 MG Oral Refill(s) Tablet [[place] 5/325] Hydromorpho No Notes: Isreal adiel ne 01-14 (Same as: l 05:48: Dilaudid) Potassium No Notes: Memori a Chloride 20 01-14 (Same as: l MEQ 05:45: K-Dur 20) Extended "Do Not Release Crush" Tablet With food and full glass of water Ondansetron No Notes: Isreal adiel -16 (Same as: l 03:12: Zofran) Sodium No 1,000 mL, Memori a Chloride 01-14 1000 l 0.154 03:12: ml/hr, Markus MEQ/ML 00 Infuse Injectable Over: 1 Solution hr, Route: IV, 1,000, Drug form: INJ, ONCE, Priority: STAT, Dosing Weight 54.545 kg, Start date: 01/13/14 22:12:00, Duration: 1 doses or times, Stop date: 01/13/14 22:12:00 Saline No Notes: [facility] Flush 0.9% 01-14 (Same as: l 03:12: BD Markus 00 Posiflush) Hydromorpho No Notes: Isreal adiel ne 9-16 (Same as: l 03:12: Dilaudid) Ondansetron Yes Notes: Isreal adiel 7-25 (Same as: l 16:08: Zofran) Metoclopram Yes Notes: Isreal adiel sam 7-25 (Same as: l 16:08: Reglan) Sodium Yes 1,000 mL, Memori a Chloride 725 1000 l 0.154 16:08: ml/hr, MEQ/ML 00 Infuse Injectable Over: 1 Solution hr, Route: IV, 1,000, Drug form: INJ, ONCE, Priority: STAT, Dosing Weight 54.545 kg, Start date: 11/22/13 11:08:00, Duration: 1 doses or times, Stop date: 11/22/13 11:08:00 Saline No Notes: [facility] Flush 0.9% 25 (Same as: l 16:08: BD Posiflush) Dilaudid Yes 0 [facility]oria 7-25 Refill(s) l 15:55: Topamax Yes 0 [facility] 7-25 Refill(s) l 15:55: Valium Yes 0 [facility] 7-25 Refill(s) l 15:54: Thyroxine Yes 0 [facility] 7-25 Refill(s) l 15:54: alfuzosin alfuzosin No alfuzosin NPI:[id number] ER 10 mg ER 10 mg ER 10 mg [id number] tablet,exte tablet,exte tablet,ext nded nded ended release 24 release 24 release 24 hr TAKE 1 hr TAKE 1 hr TAKE 1 TABLET BY TABLET BY TABLET BY MOUTH EVERY MOUTH EVERY MOUTH DAY DAY EVERY DAY IMMEDIATELY IMMEDIATELY IMMEDIATEL AFTER THE AFTER THE Y AFTER SAME MEAL SAME MEAL THE SAME MEAL baclofen 20 baclofen 20 No baclofen NPI:[id number] mg tablet mg tablet 20 mg [id number] TAKE 1 TAKE 1 tablet TABLET BY TABLET BY TAKE 1 MOUTH FOUR MOUTH FOUR TABLET BY TIMES DAILY TIMES DAILY MOUTH FOUR TIMES DAILY buspirone buspirone No buspirone NPI:[id number] 15 mg 15 mg 15 mg [id number] tablet TAKE tablet TAKE tablet 1 TABLET BY 1 TABLET BY TAKE 1 MOUTH FOUR MOUTH FOUR TABLET BY TIMES DAILY TIMES DAILY MOUTH FOUR TIMES DAILY Chantix Chantix No 1startr Chantix NPI :167 Starting Starting pk(s) Starting 99 [id number] Month Box Month Box Month Box 0.5 mg 0.5 mg 0.5 mg (11)-1 mg (11)-1 mg (11)-1 mg (42) (42) (42) tablets in tablets in tablets in dose pack dose pack dose pack Take 1 Take 1 Take 1 startr pk startr pk startr pk by oral by oral by oral route. route. route. cholestyram cholestyram No cholestyra NPI:[id number] ine (with ine (with mine (with [id number] sugar) 4 sugar) 4 sugar) 4 gram powder gram powder gram for susp in for susp in powder for a packet a packet susp in a MIX AND MIX AND packet MIX DRINK 1 DRINK 1 AND DRINK PACK PACK 1 PACK DIRECTED ON DIRECTED ON DIRECTED PACKAGE AND PACKAGE AND ON PACKAGE DRINK BY DRINK BY AND DRINK MOUTH DAILY MOUTH DAILY BY MOUTH DAILY Cholestyram Cholestyram No Cholestyra NPI:167 ine Light 4 ine Light 4 mine Light [id number] gram powder gram powder 4 gram for susp in for susp in powder for a packet a packet susp in a packet clonazepam clonazepam No clonazepam NPI:167 1 mg tablet 1 mg tablet 1 mg 9 358422 TAKE 1 TAKE 1 tablet TABLET BY TABLET BY TAKE 1 MOUTH THREE MOUTH THREE TABLET BY TIMES DAILY TIMES DAILY MOUTH THREE TIMES DAILY diclofenac diclofenac No diclofenac NPI:167 1 % topical 1 % topical 1 % 9 072016 gel APPLY gel APPLY topical TOPICALLY TOPICALLY gel APPLY TO THE TO THE TOPICALLY AFFECTED AFFECTED TO THE AREA EVERY AREA EVERY AFFECTED 8 HOURS 8 HOURS AREA EVERY DIRECTED DIRECTED 8 HOURS DIRECTED estradiol 1 estradiol 1 No estradiol NPI:167 mg tablet mg tablet 1 mg 07832 15 TAKE 1 TAKE 1 tablet TABLET BY TABLET BY TAKE 1 MOUTH EVERY MOUTH EVERY TABLET BY DAY DAY MOUTH EVERY DAY fluticasone fluticasone No fluticason NPI:167 propionate propionate e 990 9915 50 50 propionate mcg/actuati mcg/actuati 50 on nasal on nasal mcg/actuat spray,suspe spray,suspe ion nasal nsion SHAKE nsion SHAKE spray,susp LIQUID AND LIQUID AND ension USE 1 SPRAY USE 1 SPRAY SHAKE IN EACH IN EACH LIQUID AND NOSTRIL NOSTRIL USE 1 EVERY DAY EVERY DAY SPRAY IN EACH NOSTRIL EVERY DAY gabapentin gabapentin No gabapentin NPI:167 600 mg 600 mg 600 mg 8262297 tablet TAKE tablet TAKE tablet 1 TABLET BY 1 TABLET BY TAKE 1 MOUTH 6 MOUTH 6 TABLET BY TIMES A TIMES A MOUTH 6 DAYWILL DAYWILL TIMES A NEED AN NEED AN DAY[facility]ILL APPOINTMENT APPOINTMENT NEED AN BEFORE NEXT BEFORE NEXT APPOINTMEN REFILL REFILL T BEFORE NEXT REFILL ketorolac ketorolac No 60mg ketorolac NPI:167 60 mg/2 mL 60 mg/2 mL 60 mg/2 mL [id number] intramuscul intramuscul intramuscu ar syringe ar syringe lar Inject 60 Inject 60 syringe mg by mg by Inject 60 intramuscul intramuscul mg by ar route. ar route. intramuscu lar route. montelukast montelukast No montelukas NPI:167 10 mg 10 mg t 10 mg 0661387 tablet TAKE tablet TAKE tablet 1 TABLET BY 1 TABLET BY TAKE 1 MOUTH DAILY MOUTH DAILY TABLET BY MOUTH DAILY ondansetron ondansetron No ondansetro NPI:167 4 mg 4 mg n 4 mg 2939648 disintegrat disintegrat disintegra ing tablet ing tablet ting DISSOLVE 1 DISSOLVE 1 tablet TABLET ON TABLET ON DISSOLVE 1 THE TONGUE THE TONGUE TABLET ON EVERY 4 EVERY 4 THE TONGUE HOURS HOURS EVERY 4 NEEDED NEEDED HOURS NEEDED pantoprazol pantoprazol No pantoprazo NPI:167 e 40 mg e 40 mg le 40 mg 01041 15 tablet,sarah tablet,sarah tablet,del yed release yed release ayed TAKE 1 TAKE 1 release TABLET BY TABLET BY TAKE 1 MOUTH TWICE MOUTH TWICE TABLET BY DAILY DAILY MOUTH TWICE DAILY Reclast 5 Reclast 5 No 5mg Reclast 5 NPI:167 mg/100 mL mg/100 mL mg/100 mL 7294589 intravenous intravenous intravenou piggyback piggyback s Inject 5 mg Inject 5 mg piggyback by by Inject 5 intravenous intravenous mg by route. route. intravenou s route. Stelara 90 Stelara 90 No Stelara 90 NPI:167 mg/mL mg/mL mg/mL 1803752 subcutaneou subcutaneou subcutaneo s syringe s syringe us syringe Tylenol-Cod Tylenol-Cod No Tylenol-Co NPI:167 eine #3 300 eine #3 300 deine #3 [id number] mg-30 mg mg-30 mg 300 mg-30 tablet 1-2 tablet 1-2 mg tablet tabs p.o. q tabs p.o. q 1-2 tabs 6 hours PRN 6 hours PRN p.o. q 6 pain pain hours PRN pain alfuzosin alfuzosin No alfuzosin NPI:186 ER 10 mg ER 10 mg ER 10 mg 174 1779 tablet,exte tablet,exte tablet,ext nded nded ended release 24 release 24 release 24 hr TAKE 1 hr TAKE 1 hr TAKE 1 TABLET BY TABLET BY TABLET BY MOUTH EVERY MOUTH EVERY MOUTH DAY DAY EVERY DAY IMMEDIATELY IMMEDIATELY IMMEDIATEL AFTER THE AFTER THE Y AFTER SAME MEAL SAME MEAL THE SAME MEAL amoxicillin amoxicillin No amoxicilli NPI:[phone] n 585 8241247 mg-potassiu mg-potassiu mg-potassi m m um clavulanate clavulanate clavulanat 125 mg 125 mg e 125 mg tablet TAKE tablet TAKE tablet 1 TABLET BY 1 TABLET BY TAKE 1 MOUTH TWICE MOUTH TWICE TABLET BY DAILY DAILY MOUTH TWICE DAILY baclofen 20 baclofen 20 No baclofen NPI:186 mg tablet mg tablet 20 mg 1741 779 TAKE 1 TAKE 1 tablet TABLET BY TABLET BY TAKE 1 MOUTH FOUR MOUTH FOUR TABLET BY TIMES DAILY TIMES DAILY MOUTH FOUR TIMES DAILY buspirone buspirone No buspirone NPI:186 15 mg 15 mg 15 mg 2100095 tablet TAKE tablet TAKE tablet 1 TABLET BY 1 TABLET BY TAKE 1 MOUTH FOUR MOUTH FOUR TABLET BY TIMES DAILY TIMES DAILY MOUTH FOUR TIMES DAILY Chantix Chantix No Chantix NPI:18 6 Starting Starting Starting 174 1778 Month Box Month Box Month Box 0.5 mg 0.5 mg 0.5 mg (11)-1 mg (11)-1 mg (11)-1 mg (42) (42) (42) tablets in tablets in tablets in dose pack dose pack dose pack cholestyram cholestyram No cholestyra NPI:186 ine (with ine (with mine (with 6908852 sugar) 4 sugar) 4 sugar) 4 gram powder gram powder gram for susp in for susp in powder for a packet a packet susp in a MIX AND MIX AND packet MIX DRINK 1 DRINK 1 AND DRINK PACK PACK 1 PACK DIRECTED ON DIRECTED ON DIRECTED PACKAGE AND PACKAGE AND ON PACKAGE DRINK BY DRINK BY AND DRINK MOUTH DAILY MOUTH DAILY BY MOUTH DAILY clonazepam clonazepam No clonazepam NPI:186 1 mg tablet 1 mg tablet 1 mg 1 909953 TAKE 1 TAKE 1 tablet TABLET BY TABLET BY TAKE 1 MOUTH THREE MOUTH THREE TABLET BY TIMES DAILY TIMES DAILY MOUTH THREE TIMES DAILY diclofenac diclofenac No diclofenac NPI:186 1 % topical 1 % topical 1 % 1 978784 gel APPLY gel APPLY topical TOPICALLY TOPICALLY gel APPLY TO THE TO THE TOPICALLY AFFECTED AFFECTED TO THE AREA EVERY AREA EVERY AFFECTED 8 HOURS 8 HOURS AREA EVERY DIRECTED DIRECTED 8 HOURS DIRECTED diethylprop diethylprop No diethylpro NPI:186 ion ER 75 ion ER 75 pion ER 75 2507875 mg mg mg tablet,exte tablet,exte tablet,ext nded nded ended release release release TAKE 1 TAKE 1 TAKE 1 TABLET BY TABLET BY TABLET BY MOUTH EVERY MOUTH EVERY MOUTH DAY DAY EVERY DAY epinephrine epinephrine No epinephrin NPI:186 0.3 mg/0.3 0.3 mg/0.3 e 0.3 17 79438 mL mL mg/0.3 mL injection, injection, injection, auto-inject auto-inject auto-injec or or tor ertapenem 1 ertapenem 1 No ertapenem NPI:186 gram gram 1 gram 0695954 solution solution solution for for for injection injection injection escitalopra escitalopra No escitalopr NPI:186 m 10 mg m 10 mg am 10 mg 24715 79 tablet TAKE tablet TAKE tablet 1 TABLET BY 1 TABLET BY TAKE 1 MOUTH EVERY MOUTH EVERY TABLET BY MORNING MORNING MOUTH EVERY MORNING estradiol 1 estradiol 1 No estradiol NPI:186 mg tablet mg tablet 1 mg 96317 79 TAKE 1 TAKE 1 tablet TABLET BY TABLET BY TAKE 1 MOUTH EVERY MOUTH EVERY TABLET BY DAY DAY MOUTH EVERY DAY fluconazole fluconazole No fluconazol NPI:186 100 mg 100 mg e 100 mg 9017224 tablet TAKE tablet TAKE tablet 1 TABLET BY 1 TABLET BY TAKE 1 MOUTH EVERY MOUTH EVERY TABLET BY WEEK WEEK MOUTH EVERY WEEK fluconazole fluconazole No fluconazol NPI:186 200 mg 200 mg e 200 mg 8394434 tablet TAKE tablet TAKE tablet 1 TABLET BY 1 TABLET BY TAKE 1 MOUTH EVERY MOUTH EVERY TABLET BY DAY UNTIL DAY UNTIL MOUTH ALL TAKEN. ALL TAKEN. EVERY DAY UNTIL ALL TAKEN. fluticasone fluticasone No fluticason NPI:186 propionate propionate e 174 1779 50 50 propionate mcg/actuati mcg/actuati 50 on nasal on nasal mcg/actuat spray,suspe spray,suspe ion nasal nsion SHAKE nsion SHAKE spray,susp LIQUID AND LIQUID AND ension USE 1 SPRAY USE 1 SPRAY SHAKE IN EACH IN EACH LIQUID AND NOSTRIL NOSTRIL USE 1 EVERY DAY EVERY DAY SPRAY IN EACH NOSTRIL EVERY DAY furosemide furosemide No furosemide NPI:186 20 mg 20 mg 20 mg 7244563 tablet TAKE tablet TAKE tablet 1 TABLET BY 1 TABLET BY TAKE 1 MOUTH EVERY MOUTH EVERY TABLET BY DAY DAY MOUTH EVERY DAY gabapentin gabapentin No gabapentin NPI:186 600 mg 600 mg 600 mg 7914330 tablet TAKE tablet TAKE tablet 1 TABLET BY 1 TABLET BY TAKE 1 MOUTH FOUR MOUTH FOUR TABLET BY TIMES DAILY TIMES DAILY MOUTH FOUR TIMES DAILY montelukast montelukast No montelukas NPI:186 10 mg 10 mg t 10 mg 1702681 tablet TAKE tablet TAKE tablet 1 TABLET BY 1 TABLET BY TAKE 1 MOUTH DAILY MOUTH DAILY TABLET BY MOUTH DAILY ondansetron ondansetron No ondansetro NPI:186 4 mg 4 mg n 4 mg 2186814 disintegrat disintegrat disintegra ing tablet ing tablet ting DISSOLVE 1 DISSOLVE 1 tablet TABLET ON TABLET ON DISSOLVE 1 THE TONGUE THE TONGUE TABLET ON EVERY 4 EVERY 4 THE TONGUE HOURS HOURS EVERY 4 NEEDED NEEDED HOURS NEEDED oxycodone-a oxycodone-a No oxycodone- NPI:186 cetaminophe cetaminophe acetaminop 4372742 n 10 mg-325 n 10 mg-325 hen 10 mg tablet mg tablet mg-325 mg TAKE 1 TAKE 1 tablet TABLET BY TABLET BY TAKE 1 MOUTH EVERY MOUTH EVERY TABLET BY 8 HOURS 8 HOURS MOUTH NEEDED NEEDED EVERY 8 HOURS NEEDED pantoprazol pantoprazol No pantoprazo NPI:186 e 40 mg e 40 mg le 40 mg 19571 79 tablet,sarah tablet,sarah tablet,del yed release yed release ayed TAKE 1 TAKE 1 release TABLET BY TABLET BY TAKE 1 MOUTH TWICE MOUTH TWICE TABLET BY DAILY DAILY MOUTH TWICE DAILY phenazopyri phenazopyri No phenazopyr NPI:186 dine 200 mg dine 200 mg idine 296 5291981 tablet TAKE tablet TAKE mg tablet 1 TABLET BY 1 TABLET BY TAKE 1 MOUTH THREE MOUTH THREE TABLET BY TIMES DAILY TIMES DAILY MOUTH NEEDED NEEDED THREE FOR PAIN FOR PAIN TIMES DAILY NEEDED FOR PAIN Stelara 90 Stelara 90 No Stelara 90 NPI:186 mg/mL mg/mL mg/mL 4147099 subcutaneou subcutaneou subcutaneo s syringe s syringe us syringe terconazole terconazole No terconazol NPI:186 0.4 % 0.4 % e 0.4 % 3740161 vaginal vaginal vaginal cream cream cream INSERT 1 INSERT 1 INSERT 1 APPLICATORF APPLICATORF APPLICATOR UL UL FUL VAGINALLY VAGINALLY VAGINALLY AT BEDTIME AT BEDTIME AT BEDTIME FOR 7 FOR 7 FOR 7 NIGHTS NIGHTS NIGHTS terconazole terconazole No terconazol NPI:186 0.8 % 0.8 % e 0.8 % 0034559 vaginal vaginal vaginal cream cream cream varenicline varenicline No vareniclin NPI:186 1 mg tablet 1 mg tablet e 1 mg 7982812 TAKE 1 TAKE 1 tablet TABLET BY TABLET BY TAKE 1 MOUTH TWICE MOUTH TWICE TABLET BY DAILY DAILY MOUTH TWICE DAILY Immunizations Ordered Filled Immunization Date Status Comments [facility] e Immunization Name Name Influenza vaccine, Influenza vaccine, 2021-04-29 Completed quadrivalent, quadrivalent, 11:22:00 adjuvanted adjuvanted Moderna SARS-CoV-2 2020-12-28 Completed [facility] Vacc[facility] 00:00:00 of Medicine Moderna SARS-CoV-2 2020-12-28 Completed [facility] Vaccination 00:00:00 of Medicine Moderna SARS-CoV-2 2020-12-28 Completed [facility] 00:00:00 of Medicine COVID-19, mRNA, COVID-19, mRNA, 2020-12-25 Completed LNP-S, PF, 100 LNP-S, PF, 100 00:00:00 mcg/0.5 mL dose mcg/0.5 mL dose (Moderna) (Moderna) influenza, influenza, 2020-02-12 Completed injectable, injectable, 00:00:00 quadrivalent quadrivalent influenza, influenza, 2019-05-08 Completed injectable, injectable, 14:33:00 quadrivalent, quadrivalent, preservative free preservative free pneumococcal 2016-10-10 Completed [facility] 23-valent vaccine 22:14:00 Markus Hx influenza 2013-02-01 Completed [facility] vaccine-unspecified 18:41:05 Prachi nn <sup>1</sup> influenza virus 2013-02-01 Completed [facility] vaccine, 05:00:00 Markus inactivated<sup>2</ sup> zoster recombinant zoster recombinant Unknown Completed Vital Signs Vital Name Observation Time Observation Value Comments Source HEIGHT 2019-12-13 00:00:00 157.5 cm WEIGHT 2019-12-13 00:00:00 65.318 kg BP Diastolic 2021-07-24 00:00:00 71 mm[Hg] NPI:1679 [id number] Height 2021-07-24 00:00:00 62 [in_i] NPI:1679 [id number] BMI (Body Mass 2021-07-24 00:00:00 28.3 kg/m2 NPI:16 [id number] Index) BP Systolic 2021-07-24 00:00:00 100 mm[Hg] NPI:1679 [id number] Body Weight 2021-07-24 00:00:00 2480 [oz_av] NPI:1679 [id number] BP Diastolic 2021-07-12 00:00:00 89 mm[Hg] NPI:1679 686347 Height 2021-07-12 00:00:00 62 [in_i] NPI:1679 811190 BMI (Body Mass 2021-07-12 00:00:00 30.3 kg/m2 NPI:16 [id number] Index) BP Systolic 2021-07-12 00:00:00 125 mm[Hg] NPI:1679 [id number] Body Weight 2021-07-12 00:00:00 2652.8 [oz_av] NPI:16 [id number] HEIGHT 2021-07-02 11:00:00 158.8 cm WEIGHT 2021-07-02 11:00:00 72.349 kg HEIGHT 2021-07-01 10:40:00 158.8 cm WEIGHT 2021-07-01 10:40:00 72.576 kg HEIGHT 2021-07-02 11:00:00 158.8 cm WEIGHT 2021-07-02 11:00:00 72.349 kg HEIGHT 2021-07-01 10:40:00 158.8 cm WEIGHT 2021-07-01 10:40:00 72.576 kg BP Diastolic 2021-06-28 00:00:00 93 mm[Hg] NPI:1861 [id number] Height 2021-06-28 00:00:00 62 [in_i] NPI:1860 [id number] BMI (Body Mass 2021-06-28 00:00:00 30.4 kg/m2 NPI:18 [id number] Index) BP Systolic 2021-06-28 00:00:00 126 mm[Hg] NPI:1860 [id number] Body Weight 2021-06-28 00:00:00 166 [lb_av] NPI:1860 [id number] Height 2021-06-24 00:00:00 62 [in_i] NPI:1679 [id number] BMI (Body Mass 2021-06-24 00:00:00 28.9 kg/m2 NPI:16 [id number] Index) Body Weight 2021-06-24 00:00:00 2528 [oz_av] NPI:1679 [id number] HEIGHT 2021-05-03 09:33:00 157.5 cm WEIGHT 2021-05-03 09:33:00 67.132 kg HEIGHT 2021-05-03 09:33:00 157.5 cm WEIGHT 2021-05-03 09:33:00 67.132 kg Height 2021-04-28 00:00:00 62 [in_i] NPI:1679 [id number] BMI (Body Mass 2021-04-28 00:00:00 27.8 kg/m2 NPI:16 [id number] Index) Body Weight 2021-04-28 00:00:00 2432 [oz_av] NPI:1679 [id number] BP Diastolic 2021-04-22 00:00:00 74 mm[Hg] NPI:167 [id number] Height 2021-04-22 00:00:00 62 [in_i] NPI:1679 [id number] BMI (Body Mass 2021-04-22 00:00:00 27.9 kg/m2 NPI:16 [id number] Index) BP Systolic 2021-04-22 00:00:00 99 mm[Hg] NPI:167 [id number] Body Weight 2021-04-22 00:00:00 2440 [oz_av] NPI:167 [id number] BP Diastolic 2021-03-29 00:00:00 83 mm[Hg] NPI:1861 [id number] Height 2021-03-29 00:00:00 62 [in_i] NPI:1 [id number] BMI (Body Mass 2021-03-29 00:00:00 29.3 kg/m2 NPI:18 [id number] Index) BP Systolic 2021-03-29 00:00:00 115 mm[Hg] NPI:1 [id number] Body Weight 2021-03-29 00:00:00 160 [lb_av] NPI:1 424305 Systolic blood 2021-03-12 15:36:00 124 mm[Hg] [facility] pressure Medicine Diastolic blood 2021-03-12 15:36:00 80 mm[Hg] [facility] pressure Medicine Heart rate 2021-03-12 15:36:00 94 /min [facility] Respiratory rate 2021-03-12 15:36:00 18 /min [facility] Body height 2021-03-12 15:36:00 157.5 cm [facility] Body weight 2021-03-12 15:36:00 75.479 kg [facility] BMI 2021-03-12 15:36:00 30.43 kg/m2 [facility] Oxygen saturation in 2021-03-12 15:36:00 90 /min [facility] Arterial blood by [facility] Pulse oximetry BP Diastolic 2021-03-02 00:00:00 76 mm[Hg] NPI:167 [id number] Height 2021-03-02 00:00:00 62 [in_i] NPI:167 [id number] BMI (Body Mass 2021-03-02 00:00:00 28.9 kg/m2 NPI:16 [id number] Index) BP Systolic 2021-03-02 00:00:00 118 mm[Hg] NPI:167 [id number] Body Weight 2021-03-02 00:00:00 158 [lb_av] NPI:1679 330567 BP Diastolic 2021-02-19 00:00:00 78 mm[Hg] NPI:1679 046227 Height 2021-02-19 00:00:00 62 [in_i] NPI:1679 [id number] BMI (Body Mass 2021-02-19 00:00:00 29.1 kg/m2 NPI:16 [id number] Index) BP Systolic 2021-02-19 00:00:00 115 mm[Hg] NPI:1679 [id number] Body Weight 2021-02-19 00:00:00 2547.2 [oz_av] NPI:16 [id number] BP Diastolic 2021-01-25 00:00:00 96 mm[Hg] NPI:1679 039359 Height 2021-01-25 00:00:00 62 [in_i] NPI:1679 [id number] BMI (Body Mass 2021-01-25 00:00:00 29.3 kg/m2 NPI:16 [id number] Index) BP Systolic 2021-01-25 00:00:00 129 mm[Hg] NPI:1679 [id number] Body Weight 2021-01-25 00:00:00 2561.6 [oz_av] NPI:16 [id number] Systolic blood 2021-01-19 19:17:00 102 mm[Hg] [facility] pressure Medicine Diastolic blood 2021-01-19 19:17:00 71 mm[Hg] [facility] pressure Medicine Heart rate 2021-01-19 19:17:00 84 /min [facility] Body temperature 2021-01-19 19:17:00 36.28 Marguerite [facility] Body height 2021-01-19 19:17:00 157.5 cm [facility] Body weight 2021-01-19 19:17:00 70.308 kg [facility] BMI 2021-01-19 19:17:00 28.35 kg/m2 [facility] Oxygen saturation in 2021-01-19 19:17:00 85 /min [facility] blood by Medicine Pulse oximetry BP Diastolic 2020-12-28 00:00:00 93 mm[Hg] NPI:1860 [id number] Height 2020-12-28 00:00:00 62 [in_i] NPI:1860 669237 BMI (Body Mass 2020-12-28 00:00:00 29.7 kg/m2 NPI:18 [id number] Index) BP Systolic 2020-12-28 00:00:00 133 mm[Hg] NPI:1860 [id number] Body Weight 2020-12-28 00:00:00 162.2 [lb_av] NPI:461 [id number] BP Diastolic 2020-12-18 00:00:00 71 mm[Hg] NPI:167 405082 Height 2020-12-18 00:00:00 62 [in_i] NPI:167 998362 BMI (Body Mass 2020-12-18 00:00:00 29.7 kg/m2 NPI:16 [id number] Index) BP Systolic 2020-12-18 00:00:00 104 mm[Hg] NPI:167 [id number] Body Weight 2020-12-18 00:00:00 2598.4 [oz_av] NPI:16 [id number] BP Diastolic 2020-12-08 00:00:00 68 mm[Hg] NPI:167 071072 Height 2020-12-08 00:00:00 62 [in_i] NPI:1679 219239 BMI (Body Mass 2020-12-08 00:00:00 30.5 kg/m2 NPI:16 [id number] Index) BP Systolic 2020-12-08 00:00:00 95 mm[Hg] NPI:167 [id number] Body Weight 2020-12-08 00:00:00 2668.8 [oz_av] NPI:16 [id number] BP Diastolic 2020-11-30 00:00:00 76 mm[Hg] NPI:167 908397 Height 2020-11-30 00:00:00 62 [in_i] NPI:1679 697481 BMI (Body Mass 2020-11-30 00:00:00 30.2 kg/m2 NPI:16 [id number] Index) BP Systolic 2020-11-30 00:00:00 108 mm[Hg] NPI:1679 [id number] Body Weight 2020-11-30 00:00:00 2641.6 [oz_av] NPI:16 [id number] BP Diastolic 2020-11-17 00:00:00 64 mm[Hg] NPI:1679 181339 Height 2020-11-17 00:00:00 62 [in_i] NPI:1679 247673 BMI (Body Mass 2020-11-17 00:00:00 30.2 kg/m2 NPI:16 [id number] Index) BP Systolic 2020-11-17 00:00:00 90 mm[Hg] NPI:1679 160270 Body Weight 2020-11-17 00:00:00 2640 [oz_av] NPI:1679 818232 BP Diastolic 2020-10-26 00:00:00 96 mm[Hg] NPI:1679 547202 Height 2020-10-26 00:00:00 62 [in_i] NPI:1679 115205 BMI (Body Mass 2020-10-26 00:00:00 31.2 kg/m2 NPI:16 [id number] Index) BP Systolic 2020-10-26 00:00:00 140 mm[Hg] NPI:1679 [id number] Body Weight 2020-10-26 00:00:00 2729.6 [oz_av] NPI:16 [id number] BP Diastolic 2020-10-12 00:00:00 91 mm[Hg] NPI:1679 132866 Height 2020-10-12 00:00:00 62 [in_i] NPI:1679 695193 BMI (Body Mass 2020-10-12 00:00:00 30.4 kg/m2 NPI:16 [id number] Index) BP Systolic 2020-10-12 00:00:00 142 mm[Hg] NPI:1679 [id number] Body Weight 2020-10-12 00:00:00 2657.6 [oz_av] NPI:16 [id number] BMI (Body Mass 2020-08-12 00:00:00 31.6 kg/m2 NPI:16 [id number] Index) Body Weight 2020-08-12 00:00:00 2761.6 [oz_av] NPI:16 [id number] Height 2020-08-12 00:00:00 62 [in_i] NPI:1679 834674 BP Diastolic 2020-07-31 00:00:00 82 mm[Hg] NPI:1679 255377 Height 2020-07-31 00:00:00 62 [in_i] NPI:1679 619412 BMI (Body Mass 2020-07-31 00:00:00 31.6 kg/m2 NPI:16 [id number] Index) BP Systolic 2020-07-31 00:00:00 116 mm[Hg] NPI:1679 [id number] Body Weight 2020-07-31 00:00:00 172.6 [lb_av] NPI:043 [id number] BP Diastolic 2020-06-23 00:00:00 97 mm[Hg] NPI:1679 155401 Height 2020-06-23 00:00:00 62 [in_i] NPI:1679 041654 BMI (Body Mass 2020-06-23 00:00:00 28.7 kg/m2 NPI:16 [id number] Index) BP Systolic 2020-06-23 00:00:00 142 mm[Hg] NPI:1679 [id number] Body Weight 2020-06-23 00:00:00 2512 [oz_av] NPI:1679 046457 BP Diastolic 2020-05-27 00:00:00 71 mm[Hg] NPI:1679 516689 Height 2020-05-27 00:00:00 62 [in_i] NPI:1679 302746 BMI (Body Mass 2020-05-27 00:00:00 27.1 kg/m2 NPI:16 [id number] Index) BP Systolic 2020-05-27 00:00:00 105 mm[Hg] NPI:1679 530976 Body Weight 2020-05-27 00:00:00 147.9 [lb_av] NPI:470 [id number] BP Diastolic 2020-05-04 00:00:00 76 mm[Hg] NPI:1679 403851 Height 2020-05-04 00:00:00 62 [in_i] NPI:1679 909574 BMI (Body Mass 2020-05-04 00:00:00 28.4 kg/m2 NPI:16 [id number] Index) BP Systolic 2020-05-04 00:00:00 116 mm[Hg] NPI:167 [id number] Body Weight 2020-05-04 00:00:00 2481.6 [oz_av] NPI:16 [id number] BP Diastolic 2020-04-02 00:00:00 70 mm[Hg] NPI:167 844785 Height 2020-04-02 00:00:00 62 [in_i] NPI:167 286617 BMI (Body Mass 2020-04-02 00:00:00 27.4 kg/m2 NPI:16 [id number] Index) BP Systolic 2020-04-02 00:00:00 101 mm[Hg] NPI:167 673073 Body Weight 2020-04-02 00:00:00 149.7 [lb_av] NPI:824 [id number] BP Diastolic 2020-03-18 00:00:00 75 mm[Hg] NPI:167 857624 Height 2020-03-18 00:00:00 62 [in_i] NPI:1679 931365 BMI (Body Mass 2020-03-18 00:00:00 27.3 kg/m2 NPI:16 [id number] Index) BP Systolic 2020-03-18 00:00:00 124 mm[Hg] NPI:167 068554 Body Weight 2020-03-18 00:00:00 2384 [oz_av] NPI:1679 673241 BP Diastolic 2020-01-24 00:00:00 83 mm[Hg] NPI:1679 983722 Height 2020-01-24 00:00:00 62 [in_i] NPI:1679 048605 BMI (Body Mass 2020-01-24 00:00:00 27.3 kg/m2 NPI:16 [id number] Index) BP Systolic 2020-01-24 00:00:00 118 mm[Hg] NPI:167 451655 Body Weight 2020-01-24 00:00:00 2384 [oz_av] NPI:1679 954216 BP Diastolic 2020-01-17 00:00:00 71 mm[Hg] NPI:167 981998 Height 2020-01-17 00:00:00 62 [in_i] NPI:167 958684 BMI (Body Mass 2020-01-17 00:00:00 27.1 kg/m2 NPI:16 [id number] Index) BP Systolic 2020-01-17 00:00:00 107 mm[Hg] NPI:167 [id number] Body Weight 2020-01-17 00:00:00 148.2 [lb_av] NPI:673 [id number] HEIGHT 2019-12-13 00:00:00 157.5 cm WEIGHT 2019-12-13 00:00:00 65.318 kg Body height 2019-12-17 18:52:00 157.5 cm [facility] Body weight 2019-12-17 18:52:00 68.04 kg [facility] BMI 2019-12-17 18:52:00 27.44 kg/m2 [facility] Body height 2019-12-17 18:52:00 157.5 cm [facility] Body weight 2019-12-17 18:52:00 68.04 kg [facility] BMI 2019-12-17 18:52:00 27.44 kg/m2 [facility] BP Diastolic 2019-12-03 00:00:00 73 mm[Hg] NPI:1679 [id number] Height 2019-12-03 00:00:00 62 [in_i] NPI:1679 529562 BMI (Body Mass 2019-12-03 00:00:00 27.1 kg/m2 NPI:16 [id number] Index) BP Systolic 2019-12-03 00:00:00 105 mm[Hg] NPI:167 [id number] Body Weight 2019-12-03 00:00:00 148 [lb_av] NPI:1679 446120 BP Diastolic 2019-11-07 00:00:00 73 mm[Hg] NPI:1679 180457 Height 2019-11-07 00:00:00 62 [in_i] NPI:167 309227 BMI (Body Mass 2019-11-07 00:00:00 27.1 kg/m2 NPI:16 [id number] Index) BP Systolic 2019-11-07 00:00:00 105 mm[Hg] NPI:[id number] Body Weight 2019-11-07 00:00:00 2369 [oz_av] NPI:[id number] BP Diastolic 2019-10-15 00:00:00 94 mm[Hg] NPI:167 [id number] Height 2019-10-15 00:00:00 62 [in_i] NPI:[id number] BMI (Body Mass 2019-10-15 00:00:00 27.8 kg/m2 NPI:16 [id number] Index) BP Systolic 2019-10-15 00:00:00 135 mm[Hg] NPI:[id number] Body Weight 2019-10-15 00:00:00 2432 [oz_av] NPI:[id number] BP Diastolic 2019-07-12 00:00:00 77 mm[Hg] NPI:[id number] Height 2019-07-12 00:00:00 62 [in_i] NPI:[id number] BMI (Body Mass 2019-07-12 00:00:00 27.7 kg/m2 NPI:16 [id number] Index) BP Systolic 2019-07-12 00:00:00 101 mm[Hg] NPI:[id number] Body Weight 2019-07-12 00:00:00 2425 [oz_av] NPI:[id number] Systolic blood 2019-07-11 16:12:00 111 mm[Hg] [facility] pressure Medicine Diastolic blood 2019-07-11 16:12:00 77 mm[Hg] [facility] Medicine Heart rate 2019-07-11 16:12:00 99 /min [facility] Body temperature 2019-07-11 16:12:00 36.72 [facility] Body height 2019-07-11 16:12:00 157.5 cm [facility] Body weight 2019-07-11 16:12:00 65.772 kg [facility] BMI 2019-07-11 16:12:00 26.52 kg/m2 [facility] [employer] [employer] Systolic blood 2019-07-11 16:12:00 111 mm[Hg] [facility] pressure Medicine Diastolic blood 2019-07-11 16:12:00 77 mm[Hg] [facility] pressure Medicine Heart rate 2019-07-11 16:12:00 99 /min [facility] [employer] Body temperature 2019-07-11 16:12:00 36.72 [facility] Body height 2019-07-11 16:12:00 157.5 cm [facility] [employer] Body weight 2019-07-11 16:12:00 65.772 kg [facility] [employer] [employer] BMI 2019-07-11 16:12:00 26.52 kg/m2 [facility] [employer] Systolic blood 2019-06-19 15:35:00 138 mm[Hg] [facility] Medicine Diastolic blood 2019-06-19 15:35:00 86 mm[Hg] [facility] Medicine Heart rate 2019-06-19 15:35:00 78 /min [facility] [employer] [facility] Respiratory rate 2019-06-19 15:35:00 16 /min [facility] Body height 2019-06-19 15:35:00 157.5 cm [facility] Body weight 2019-06-19 15:35:00 66.588 kg [facility] BMI 2019-06-19 15:35:00 26.85 kg/m2 [facility] Systolic blood 2019-06-19 15:35:00 138 mm[Hg] [facility] Medicine Diastolic blood 2019-06-19 15:35:00 86 mm[Hg] [facility] Medicine Heart rate 2019-06-19 15:35:00 78 /min [facility] Respiratory rate 2019-06-19 15:35:00 16 /min [facility] Body height 2019-06-19 15:35:00 157.5 cm [facility] Body weight 2019-06-19 15:35:00 66.588 kg [facility] BMI 2019-06-19 15:35:00 26.85 kg/m2 [facility] Systolic blood 2019-06-19 16:57:00 127 mm[Hg] [facility] pressure Medicine Diastolic blood 2019-06-19 16:57:00 70 mm[Hg] [facility] of pressure Medicine Heart rate 2019-06-19 16:57:00 95 /min [facility] Body temperature 2019-06-19 16:57:00 36.56 Marguerite [facility] Respiratory rate 2019-06-19 16:57:00 18 /min [facility] Body height 2019-06-19 16:57:00 157.5 cm [facility] Body weight 2019-06-19 16:57:00 66.679 kg [facility] BMI 2019-06-19 16:57:00 26.89 kg/m2 [facility] Systolic blood 2019-06-19 16:57:00 127 mm[Hg] [facility] pressure Medicine Diastolic blood 2019-06-19 16:57:00 70 mm[Hg] [facility] pressure Medicine Heart rate 2019-06-19 16:57:00 95 /min [facility] Body temperature 2019-06-19 16:57:00 36.56 Marguerite [facility] Respiratory rate 2019-06-19 16:57:00 18 /min [facility] Body height 2019-06-19 16:57:00 157.5 cm [facility] Body weight 2019-06-19 16:57:00 66.679 kg [facility] BMI 2019-06-19 16:57:00 26.89 kg/m2 [facility] Systolic blood 2019-06-12 14:20:00 100 mm[Hg] [facility] pressure Medicine Diastolic blood 2019-06-12 14:20:00 69 mm[Hg] [facility] pressure Medicine Heart rate 2019-06-12 14:20:00 98 /min [facility] Body temperature 2019-06-12 14:20:00 37.11 Marguerite [facility] Respiratory rate 2019-06-12 14:20:00 16 /min [facility] Body height 2019-06-12 14:20:00 157.5 cm [facility] ol[facility] Body weight 2019-06-12 14:20:00 67.223 [facility] 2019-06-12 14:20:00 27.11 kg/m2 [facility] Systolic blood 2019-06-12 14:20:00 100 mm[Hg] [facility] pressure Medicine Diastolic blood 2019-06-12 14:20:00 69 mm[Hg] [facility] Medicine Heart rate 2019-06-12 14:20:00 98 /min [facility] Body temperature 2019-06-12 14:20:00 37.11 Marguerite [facility] Respiratory rate 2019-06-12 14:20:00 16 /min [facility] Body height 2019-06-12 14:20:00 157.5 cm [facility] 2019-06-12 14:20:00 67.223 kg [facility] BMI 2019-06-12 14:20:00 27.11 kg/m2 [facility] BP Diastolic 2019-05-08 00:00:00 81 mm[Hg] NPI:1679 [id number] Height 2019-05-08 00:00:00 62 [in_i] NPI:1679 [id number] BMI (Body Mass 2019-05-08 00:00:00 27.3 kg/m2 NPI:16 [id number] Index) BP Systolic 2019-05-08 00:00:00 123 mm[Hg] NPI:1679 [id number] Body Weight 2019-05-08 00:00:00 2384 [oz_av] NPI:1679 [id number] BP Diastolic 2019-01-29 00:00:00 64 mm[Hg] NPI:1679 [id number] Height 2019-01-29 00:00:00 62 [in_i] NPI:1679 [id number] BMI (Body Mass 2019-01-29 00:00:00 27.9 kg/m2 NPI:16 [id number] Index) BP Systolic 2019-01-29 00:00:00 108 mm[Hg] NPI:1679 [id number] Body Weight 2019-01-29 00:00:00 152.3 [lb_av] NPI:459 [id number] BP Diastolic 2019-01-25 00:00:00 71 mm[Hg] NPI:1679 [id number] Height 2019-01-25 00:00:00 62 [in_i] NPI:1679 [id number] BMI (Body Mass 2019-01-25 00:00:00 28.2 kg/m2 NPI:16 [id number] Index) BP Systolic 2019-01-25 00:00:00 91 mm[Hg] NPI:1679 [id number] Body Weight 2019-01-25 00:00:00 154.2 [lb_av] NPI:442 [id number] BP Diastolic 2019-01-07 00:00:00 80 mm[Hg] NPI:1679 [id number] Height 2019-01-07 00:00:00 62 [in_i] NPI:1679 [id number] BMI (Body Mass 2019-01-07 00:00:00 29 kg/m2 NPI:16 [id number] Index) BP Systolic 2019-01-07 00:00:00 109 mm[Hg] NPI:1679 [id number] Body Weight 2019-01-07 00:00:00 158.6 [lb_av] NPI:611 [id number] BP Diastolic 2018-12-27 00:00:00 67 mm[Hg] NPI:1679 [id number] Height 2018-12-27 00:00:00 62 [in_i] NPI:1679 [id number] BMI (Body Mass 2018-12-27 00:00:00 27.9 kg/m2 NPI:16 [id number] Index) BP Systolic 2018-12-27 00:00:00 92 mm[Hg] NPI:1679 [id number] Body Weight 2018-12-27 00:00:00 152.3 [lb_av] NPI:884 [id number] Systolic blood 2018-12-18 15:04:00 110 mm[Hg] [facility] of pressure Medicine Diastolic blood 2018-12-18 15:04:00 60 mm[Hg] [facility] Medicine Heart rate 2018-12-18 15:04:00 74 /min [facility] Body temperature 2018-12-18 15:04:00 36.67 Marguerite [facility] Respiratory rate 2018-12-18 15:04:00 16 /min [facility] Body height 2018-12-18 15:04:00 157.5 cm [facility] Body weight 2018-12-18 15:04:00 70.67 kg [facility] BMI 2018-12-18 15:04:00 28.50 kg/m2 [facility] Systolic blood 2018-12-18 15:04:00 110 mm[Hg] [facility] Medicine Diastolic blood 2018-12-18 15:04:00 60 mm[Hg] [facility] Medicine Heart rate 2018-12-18 15:04:00 74 /min [facility] Body temperature 2018-12-18 15:04:00 36.67 Marguerite [facility] Respiratory rate 2018-12-18 15:04:00 16 /min [facility] Body height 2018-12-18 15:04:00 157.5 cm [facility] Body weight 2018-12-18 15:04:00 70.67 kg [facility] BMI 2018-12-18 15:04:00 28.50 kg/m2 [facility] BP Diastolic 2018-12-17 00:00:00 93 mm[Hg] NPI:1679 [id number] Height 2018-12-17 00:00:00 62 [in_i] NPI:1679 [id number] BMI (Body Mass 2018-12-17 00:00:00 28.3 kg/m2 NPI:16 [id number] Index) BP Systolic 2018-12-17 00:00:00 137 mm[Hg] NPI:1679 [id number] Body Weight 2018-12-17 00:00:00 2480 [oz_av] NPI:167 [id number] BP Diastolic 2018-12-07 00:00:00 73 mm[Hg] NPI:167 [id number] Height 2018-12-07 00:00:00 62 [in_i] NPI:1679 [id number] BMI (Body Mass 2018-12-07 00:00:00 30 kg/m2 NPI:16 [id number] Index) BP Systolic 2018-12-07 00:00:00 145 mm[Hg] NPI:1679 [id number] Body Weight 2018-12-07 00:00:00 2624 [oz_av] NPI:1679 [id number] BP Diastolic 2018-10-17 00:00:00 90 mm[Hg] NPI:1679 541601 Height 2018-10-17 00:00:00 62 [in_i] NPI:167 774398 BMI (Body Mass 2018-10-17 00:00:00 27.3 kg/m2 NPI:16 [id number] Index) BP Systolic 2018-10-17 00:00:00 153 mm[Hg] NPI:1679 [id number] Body Weight 2018-10-17 00:00:00 2384 [oz_av] NPI:1679 449972 BP Diastolic 2018-09-17 00:00:00 84 mm[Hg] NPI:1679 [id number] Height 2018-09-17 00:00:00 62 [in_i] NPI:1679 [id number] BMI (Body Mass 2018-09-17 00:00:00 27.3 kg/m2 NPI:16 [id number] Index) BP Systolic 2018-09-17 00:00:00 120 mm[Hg] NPI:1679 [id number] Body Weight 2018-09-17 00:00:00 2384 [oz_av] NPI:1679 550156 BP Diastolic 2018-08-29 00:00:00 80 mm[Hg] NPI:1679 655548 Height 2018-08-29 00:00:00 62 [in_i] NPI:1679 789780 BMI (Body Mass 2018-08-29 00:00:00 27.3 kg/m2 NPI:16 [id number] Index) BP Systolic 2018-08-29 00:00:00 105 mm[Hg] NPI:1679 [id number] Body Weight 2018-08-29 00:00:00 2384 [oz_av] NPI:1679 748768 BP Diastolic 2018-08-15 00:00:00 94 mm[Hg] NPI:1679 895682 Height 2018-08-15 00:00:00 62 [in_i] NPI:167 [id number] BMI (Body Mass 2018-08-15 00:00:00 29.1 kg/m2 NPI:16 [id number] Index) BP Systolic 2018-08-15 00:00:00 136 mm[Hg] NPI:1679 [id number] Body Weight 2018-08-15 00:00:00 2544 [oz_av] NPI:1679 [id number] Systolic blood 2021-05-25 20:58:00 140 mm[Hg] [facility] pressure Diastolic blood 2021-05-25 20:58:00 89 mm[Hg] [facility] pressure Heart rate 2021-05-25 20:58:00 89 /min [facility] Body height 2021-05-25 20:58:00 157.5 cm [facility] Body weight 2021-05-25 20:58:00 71.668 kg [facility] BMI 2021-05-25 20:58:00 28.90 kg/m2 [facility] Respiratory rate 2021-05-10 21:40:00 20 /min [facility] Oxygen saturation in 2021-05-10 21:40:00 94 /min [facility] Arterial blood by Pulse oximetry Body temperature 2021-05-10 21:15:00 36.67 Marguerite [facility] Systolic blood 2021-05-03 13:00:00 142 mm[Hg] NPI:11 [id number] pressure Diastolic blood 2021-05-03 13:00:00 97 mm[Hg] NPI:1 [id number] pressure Heart rate 2021-05-03 13:00:00 63 /min NPI:1184 [id number] Respiratory rate 2021-05-03 13:00:00 8 /min Oxygen saturation in 2021-05-03 13:00:00 95 /min Arterial blood by Pulse oximetry Body temperature 2021-05-03 09:33:00 36.61 Marguerite Body height 2021-05-03 09:33:00 157.5 cm NPI:1184 [id number] Body weight 2021-05-03 09:33:00 67.132 kg NPI:1184 [id number] BMI 2021-05-03 09:33:00 27.07 kg/m2 NPI:1184 [id number] Respitory Rate 2020-08-03 13:45:00 [facility] Systolic (mm Hg) 2020-08-03 13:45:00 [facility] [facility] [place] Diastolic (mm Hg) 2020-08-03 13:45:00 [facility] [place] Respitory Rate 2020-08-03 13:30:00 [facility] [place] Systolic (mm Hg) 2020-08-03 13:30:00 [facility] Diastolic (mm Hg) 2020-08-03 13:30:00 [facility] Respitory Rate 2020-08-03 13:15:00 [facility] [place] Systolic (mm Hg) 2020-08-03 13:15:00 [facility] [place] Diastolic (mm Hg) 2020-08-03 13:15:00 [facility] Height 2020-07-31 19:34:00 157.48 cm [facility] [place] Weight 2020-07-31 19:34:00 [facility] [place] BMI Calculated 2020-07-31 19:34:00 [facility] Respitory Rate 2020-05-12 01:00:00 [facility] [place] Systolic (mm Hg) 2020-05-12 01:00:00 [facility] [place] Diastolic (mm Hg) 2020-05-12 01:00:00 [facility] Respitory Rate 2020-05-12 00:45:00 [facility] Respitory Rate 2020-05-11 23:45:00 [facility] Systolic (mm Hg) 2020-05-11 23:45:00 [facility] Diastolic (mm Hg) 2020-05-11 23:45:00 [facility] Systolic (mm Hg) 2020-05-11 23:30:00 [facility] [place] Diastolic (mm Hg) 2020-05-11 23:30:00 [facility] [place] Heart Rate 2020-05-11 16:14:00 [facility] [place] Height 2020-05-07 16:08:00 157.48 cm [facility] Weight 2020-05-07 16:08:00 [facility] BMI Calculated 2020-05-07 16:08:00 [facility] [place] Temperature Oral (F) 2017-02-18 23:13:00 98.9 F [facility] Heart Rate 2017-02-18 23:13:00 [facility] [place] Respitory Rate 2017-02-18 23:13:00 [facility] [place] Diastolic (mm Hg) 2017-02-18 23:13:00 [facility] [place] Systolic (mm Hg) 2017-02-18 23:13:00 [facility] Diastolic (mm Hg) 2017-02-18 21:48:00 [facility] [place] Respitory Rate 2017-02-18 21:48:00 [facility] [place] Systolic (mm Hg) 2017-02-18 21:48:00 [facility] [place] Heart Rate 2017-02-18 21:48:00 [facility] Weight 2017-02-18 20:38:00 [facility] Temperature Oral (F) 2017-02-18 20:38:00 98.9 F [facility] Respitory Rate 2017-02-18 20:38:00 [facility] Heart Rate 2017-02-18 20:38:00 [facility] [place] Systolic (mm Hg) 2017-02-18 20:38:00 [facility] [place] Diastolic (mm Hg) 2017-02-18 20:38:00 [facility] Systolic (mm Hg) 2016-10-12 12:36:00 [facility] [place] Diastolic (mm Hg) 2016-10-12 12:36:00 [facility] Heart Rate 2016-10-12 12:36:00 [facility] Temperature Oral (F) 2016-10-12 12:36:00 98.1 F [facility] Respitory Rate 2016-10-12 12:36:00 [facility] [place] Temperature Oral (F) 2016-10-12 04:32:00 97.7 F [facility] [place] Heart Rate 2016-10-12 04:32:00 [facility] Systolic (mm Hg) 2016-10-12 04:32:00 [facility] Diastolic (mm Hg) 2016-10-12 04:32:00 [facility] Respitory Rate 2016-10-12 04:32:00 [facility] Temperature Oral (F) 2016-10-12 00:11:00 98.2 F [facility] [place] Systolic (mm Hg) 2016-10-12 00:11:00 [facility] Diastolic (mm Hg) 2016-10-12 00:11:00 [facility] Respitory Rate 2016-10-12 00:11:00 [facility] Heart Rate 2016-10-12 00:11:00 [facility] BMI Calculated 2016-10-10 07:28:00 [facility] Weight 2016-10-10 07:28:00 [facility] [place] Height 2016-10-10 07:28:00 157.48 cm [facility] Weight 2016-10-10 03:22:00 [facility] Temperature Oral (F) 2016-02-10 21:38:00 98.2 F [facility] [place] Respitory Rate 2016-02-10 21:38:00 [facility] [place] Heart Rate 2016-02-10 21:38:00 [facility] Systolic (mm Hg) 2016-02-10 21:38:00 [facility] Diastolic (mm Hg) 2016-02-10 21:38:00 [facility] [place] Height 2016-02-10 18:31:00 157.48 cm [facility] Weight 2016-02-10 18:31:00 [facility] BMI Calculated 2016-02-10 18:31:00 [facility] [place] Systolic (mm Hg) 2016-02-10 18:31:00 [facility] Diastolic (mm Hg) 2016-02-10 18:31:00 [facility] [place] Respitory Rate 2016-02-10 18:31:00 [facility] [place] Heart Rate 2016-02-10 18:31:00 [facility] Temperature Oral (F) 2016-02-10 18:31:00 98.4 F [facility] [place] Temperature Oral (F) 2014-08-13 16:57:00 98.1 F [facility] [place] Heart Rate 2014-08-13 16:57:00 [facility] [place] Systolic (mm Hg) 2014-08-13 16:57:00 [facility] [place] Diastolic (mm Hg) 2014-08-13 16:57:00 [facility] Respitory Rate 2014-08-13 16:57:00 [facility] Respitory Rate 2014-08-13 15:44:00 [facility] [place] Heart Rate 2014-08-13 15:44:00 [facility] [place] Systolic (mm Hg) 2014-08-13 15:44:00 [facility] [place] Diastolic (mm Hg) 2014-08-13 15:44:00 [facility] [place] Heart Rate 2014-08-13 14:30:00 [facility] [place] Respitory Rate 2014-08-13 14:30:00 [facility] Systolic (mm Hg) 2014-08-13 14:30:00 [facility] Diastolic (mm Hg) 2014-08-13 14:30:00 [facility] Weight 2014-08-13 11:54:00 [facility] [place] BMI Calculated 2014-08-13 11:54:00 [facility] [place] Height 2014-08-13 11:54:00 170.18 cm [facility] Temperature Oral (F) 2014-08-13 11:54:00 97.4 F [facility] Heart Rate 2014-03-09 17:53:00 [facility] Temperature Oral (F) 2014-03-09 17:53:00 97.9 F [facility] Systolic (mm Hg) 2014-03-09 17:53:00 [facility] [place] Respitory Rate 2014-03-09 17:53:00 [facility] Diastolic (mm Hg) 2014-03-09 17:53:00 [facility] Diastolic (mm Hg) 2014-03-09 15:56:00 [facility] Systolic (mm Hg) 2014-03-09 15:56:00 [facility] Respitory Rate 2014-03-09 15:56:00 [facility] [place] Heart Rate 2014-03-09 15:56:00 [facility] Temperature Oral (F) 2014-03-09 15:56:00 97.9 F [facility] Weight 2014-03-09 11:40:00 [facility] Height 2014-03-09 11:40:00 160.02 cm [facility] BMI Calculated 2014-03-09 11:40:00 [facility] [place] Temperature Oral (F) 2014-03-09 11:40:00 98.1 F [facility] Heart Rate 2014-03-09 11:40:00 [facility] [place] Respitory Rate 2014-03-09 11:40:00 [facility] [place] Diastolic (mm Hg) 2014-03-09 11:40:00 [facility] [place] Systolic (mm Hg) 2014-03-09 11:40:00 [facility] [place] Systolic (mm Hg) 2014-01-14 23:08:00 [facility] Diastolic (mm Hg) 2014-01-14 23:08:00 [facility] Temperature Oral (F) 2014-01-14 23:08:00 98.3 F [facility] [place] Heart Rate 2014-01-14 23:08:00 [facility] Respitory Rate 2014-01-14 23:08:00 [facility] Respitory Rate 2014-01-14 20:30:00 [facility] [place] Systolic (mm Hg) 2014-01-14 20:30:00 [facility] Diastolic (mm Hg) 2014-01-14 20:30:00 [facility] [place] Heart Rate 2014-01-14 20:30:00 [facility] Systolic (mm Hg) 2014-01-14 16:36:00 [facility] Respitory Rate 2014-01-14 16:36:00 [facility] [place] Diastolic (mm Hg) 2014-01-14 16:36:00 [facility] Heart Rate 2014-01-14 16:36:00 [facility] [place] Temperature Oral (F) 2014-01-14 13:03:00 99.1 F [facility] Height 2014-01-14 13:03:00 157.48 cm [facility] Weight 2014-01-14 13:03:00 [facility] [place] BMI Calculated 2014-01-14 13:03:00 [facility] Systolic (mm Hg) 2014-01-14 07:25:00 [facility] Diastolic (mm Hg) 2014-01-14 07:25:00 [facility] Respitory Rate 2014-01-14 07:25:00 [facility] Heart Rate 2014-01-14 07:25:00 [facility] Temperature Oral (F) 2014-01-14 07:25:00 98.5 F [facility] [place] Heart Rate 2014-01-14 03:04:00 [facility] [place] Respitory Rate 2014-01-14 03:04:00 [facility] [place] Temperature Oral (F) 2014-01-14 03:04:00 98.8 F [facility] Diastolic (mm Hg) 2014-01-14 03:04:00 [facility] [place] Systolic (mm Hg) 2014-01-14 03:04:00 [facility] [place] Weight 2014-01-14 03:04:00 [facility] [place] Temperature Oral (F) 2013-11-22 16:34:00 98.6 F [facility] Heart Rate 2013-11-22 16:34:00 [facility] Systolic (mm Hg) 2013-11-22 16:34:00 [facility] [place] Respitory Rate 2013-11-22 16:34:00 [facility] Diastolic (mm Hg) 2013-11-22 16:34:00 [facility] BMI Calculated 2013-11-22 15:46:00 [facility] Height 2013-11-22 15:46:00 157.48 cm [facility] [place] Weight 2013-11-22 15:46:00 [facility] [place] Respitory Rate 2013-11-22 15:46:00 [facility] [place] Heart Rate 2013-11-22 15:46:00 [facility] [place] Temperature Oral (F) 2013-11-22 15:46:00 98.1 F [facility] Systolic (mm Hg) 2013-11-22 15:46:00 [facility] Diastolic (mm Hg) 2013-11-22 15:46:00 [facility] Procedures Procedure Date / Time Performing Clinician Source Performed XR, femur, 2 or more view 2021-07-24 00:00:00 IMAGING ACCOUNT MANAGER I:[id number] DEXA 2021-07-12 00:00:00 NPI:[id number] AL AN ELECTIVE 2021-05-10 15:58:52 Samuel Hutchison [facility] ENDOTRACHEAL AIRWAY B REPAIR, HERNIA, INCISIONAL 2021-05-10 15:40:00 [facility] OR VENTRAL E. POC GLUCOSE 2021-05-10 15:26:00 [facility] E. ABO AND RH CONFIRMATION 2021-05-10 [facility] PRE/POST OP 2021-05-06 17:50:26 [facility] Meron [facility] ospital ESTIMATED GFR 2021-05-06 17:44:00 [facility], [facility] COVID-19 QUALITATIVE 2021-05-06 17:44:00 [facility], Meron [facility] RT-PCR HC COMPLETE BLD COUNT 2021-05-06 17:44:00 [facility], Meron [facility] W/AUTO DIFF COMPREHENSIVE METABOLIC 2021-05-06 17:44:00 [facility], Meron [facility] PANEL TYPE AND SCREEN 2021-05-06 17:44:00 [facility] HEMOGLOBIN A1C 2021-05-06 17:44:00 [facility] MR LOWER EXTREMITY JOINT 2021-05-04 08:46:00 Elly Dodson NPI :[id number] ONLY WITHOUT IV CONTRAST [place] RIGHT IR PICC LINE PLACEMENT 2021-05-03 12:11:00 Michael Lopez PI:[id number] OLDER THAN 5 YRS COMPREHENSIVE METABOLIC 2021-01-19 21:00:00 [facility] Medicine CBC W/AUTO DIFF WITH 2021-01-19 21:00:00 John [facility] Medicine URINALYSIS AUTO W/SCOPE 2021-01-19 21:00:00 John [facility] CULTURE, URINE/SENSITIVITY 2021-01-19 21:00:00 John [facility] ON ALL Medicine MR PELVIS WITH & WITHOUT 2020-11-20 11:45:00 April Mock NPI :[id number] IV CONTRAST MR ABDOMEN WITH & WITHOUT 2020-11-20 11:45:00 April Mock IMAGING ACCOUNT MANAGER I:[id number] IV CONTRAST Knee Surgery 2020-08-03 00:00:00 NPI:[id number] Procedure on Knee 2020-05-11 00:00:00 NPI:[id number] Nerve Block 2020-03-03 00:00:00 NPI:[id number] Colonoscopy 2020-01-07 00:00:00 NPI:[id number] MRI, knee, w/o contrast 2019-11-19 00:00:00 US, doppler, venous 2019-10-15 00:00:00 NPI:[id number] XR, knee, 3 view 2019-10-15 00:00:00 NPI:[id number] unlisted imaging order 2018-12-27 00:00:00 NPI:1 [id number] Hysterectomy 2006-05-01 00:00:00 NPI:[id number] Cholecystectomy [facility] Appendectomy [facility] Nasal operation [facility] Arthroscopy of ankle [facility] Knee [facility] replacement<sup>1</sup> Colon operation [facility] Hysterectomy [facility] section [facility] n Large Intestine Excision NPI:[id number] Cholecystectomy Caesarean Section Total Hysterectomy NPI:[id number] Plan of Care Planned Activity Planned Date Details Comments Source Future Scheduled 2030-01-08 Screening for NPI:[id number] Test 00:00:00 malignant neoplasm of colon (procedure) [code = 557121416] Future Scheduled 2030-01-08 Screening for NPI:[id number] Test 00:00:00 malignant neoplasm of colon (procedure) [code = 723207915] Future Scheduled 2021-06-09 Hepatitis C screening [facility] Test 07:04:40 (procedure) [code = Hospital 555211692] Future Scheduled 2021-06-09 Screening for [facility] Test 07:04:40 malignant neoplasm of Hospit al cervix (procedure) [code = 173572062] Future Scheduled 2021-06-09 INFLUENZA VACCINE Method ist Test 07:04:40 [code = INFLUENZA Hospital VACCINE] Future Scheduled 2021-06-09 COVID-19 VACCINE (3 - [facility] Test 07:04:40 Booster) [code = Hospital COVID-19 VACCINE (3 - Booster)] Future Scheduled 2021-05-01 DEPRESSION SCREENING NPI :[id number] Test 00:00:00 (12+) [code = DEPRESSION SCREENING (12+)] Future Scheduled 2021-05-01 DEPRESSION SCREENING NPI :[id number] Test 00:00:00 (12+) [code = DEPRESSION SCREENING (12+)] Future Scheduled 2021-03-12 Screening for Kev [employer] Test 13:58:55 malignant neoplasm of of Med icine breast (procedure) [code = 958394814] Future Scheduled 2021-03-12 Pneumococcal Combined [employer] Test 13:58:55 (1 of 2 - PPSV23) of Medicin e [code = Pneumococcal Combined (1 of 2 - PPSV23)] Future Scheduled 2021-03-12 TETANUS SHOT (ADULT) [employer] Test 13:58:55 [code = TETANUS SHOT of Medi cine (ADULT)] Future Scheduled 2021-03-12 Hepatitis C screening [employer] Test 13:58:55 (procedure) [code = of Medic ine 402812705] Future Scheduled 2021-03-12 Human immunodeficiency [facility] Test 13:58:55 virus screening of Medicine (procedure) [code = 336859891] Future Scheduled 2021-03-12 Screening for [facility]ge Test 13:58:55 malignant neoplasm of of Med icine cervix (procedure) [code = 849861912] Future Scheduled 2021-03-12 MEDICARE AWV (Initial) [facility] Test 13:58:55 [code = MEDICARE AWV of Medi cine (Initial)] Future Scheduled 2021-03-12 BMI FOLLOW UP PLAN [employer] Test 13:58:55 [code = BMI FOLLOW UP of Med icine PLAN] Future Scheduled 2021-03-12 FLU VACCINE > 6 MONTHS [employer] Test 13:58:55 [code = FLU VACCINE > of Med icine 6 MONTHS] Future Scheduled 2021-03-12 COVID-19 Vaccine (2 - [employer] Test 13:58:55 Moderna 2-dose series) of Me dicine [code = COVID-19 Vaccine (2 - Moderna 2-dose series)] Future Scheduled 2021-03-12 ZOSTER VACCINE (1 of [employer] Test 13:58:55 2) [code = ZOSTER of Medicin e VACCINE (1 of 2)] Future Scheduled 2021-03-12 Screening for [employer] Test 13:58:55 malignant neoplasm of of Med icine colon (procedure) [code = 848323043] Future Scheduled 2021-03-12 CULTURE, Ordered: [facility] ege Test 09:53:03 URINE/SENSITIVITY ON 03/12/2021 of Medi cine ALL [code = 66166-7] Future Scheduled 2021-03-12 URINALYSIS AUTO Ordered: [facility] Test 09:52:45 W/SCOPE [code = 03/12/2021 of Medicine 77559-3] Future Scheduled 2021-01-25 COVID-19 VACCINE (2 - IMAGING ACCOUNT MANAGER [id number] Test 00:00:00 Moderna 2-dose series) [code = COVID-19 VACCINE (2 - Moderna 2-dose series)] Future Scheduled 2021-01-25 COVID-19 VACCINE (2 - IMAGING ACCOUNT MANAGER [id number] Test 00:00:00 Moderna 2-dose series) [code = COVID-19 VACCINE (2 - Moderna 2-dose series)] Future Scheduled 2021-01-20 TETANUS SHOT (ADULT) [facility] Test 12:19:04 [code = TETANUS SHOT of [facility] (ADULT)] Future Scheduled 2021-01-20 Hepatitis C screening Ba [facility] Test 12:19:04 (procedure) [code = of Medic ine 273086351] Future Scheduled 2021-01-20 Human immunodeficiency B [facility] Test 12:19:04 virus screening of Medicine (procedure) [code = 853957337] Future Scheduled 2021-01-20 Screening for [employer] Test 12:19:04 malignant neoplasm of of Med icine cervix (procedure) [code = 499386582] Future Scheduled 2021-01-20 MEDICARE AWV (Initial) B [facility] Test 12:19:04 [code = MEDICARE AWV of [facility] (Initial)] Future Scheduled 2021-01-20 BMI FOLLOW UP PLAN [facility] Test 12:19:04 [code = BMI FOLLOW UP of Med icine PLAN] Future Scheduled 2021-01-20 FLU VACCINE > 6 MONTHS [facility] Test 12:19:04 [code = FLU VACCINE > of Med icine 6 MONTHS] Future Scheduled 2021-01-20 COVID-19 Vaccine (2 - [employer] Test 12:19:04 Moderna 2-dose series) of Me dicine [code = COVID-19 Vaccine (2 - Moderna 2-dose series)] Future Scheduled 2021-01-20 ZOSTER VACCINE (1 of [facility] Test 12:19:04 2) [code = ZOSTER of Medicin e VACCINE (1 of 2)] Future Scheduled 2021-01-20 Screening for [employer] Test 12:19:04 malignant neoplasm of of Med icine colon (procedure) [code = 699205680] Future Scheduled 2021-01-20 Screening for [facility] Test 12:19:04 malignant neoplasm of of Med icine breast (procedure) [code = 458760527] Future Scheduled 2021-01-20 TETANUS SHOT (ADULT) [facility] Test 12:19:04 [code = TETANUS SHOT of Medi cine (ADULT)] Future Scheduled 2021-01-20 Hepatitis C screening [employer] Test 12:19:04 (procedure) [code = of Medic ine 153678095] Future Scheduled 2021-01-20 Human immunodeficiency [employer] Test 12:19:04 virus screening of Medicine (procedure) [code = 651537896] Future Scheduled 2021-01-20 Screening for [facility] Test 12:19:04 malignant neoplasm of of Med icine cervix (procedure) [code = 077628664] Future Scheduled 2021-01-20 MEDICARE AWV (Initial) [employer] Test 12:19:04 [code = MEDICARE AWV of Medi cine (Initial)] Future Scheduled 2021-01-20 BMI FOLLOW UP PLAN [employer] Test 12:19:04 [code = BMI [...] Future Scheduled 2021-01-20 ZOSTER VACCINE (1 of [facility] [employer] Test 12:19:04 2) [code = ZOSTER of Medicin e VACCINE (1 of 2)] Future Scheduled 2021-01-20 Screening for [facility] Test 12:19:04 malignant neoplasm of of Med icine colon (procedure) [code = 566544573] Future Scheduled 2021-01-20 Screening for [employer] Test 12:19:04 malignant neoplasm of of Med icine breast (procedure) [code = 606761745] Future Scheduled 2021-01-19 CULTURE, [facility] Test 14:59:42 URINE/SENSITIVITY ON of Medi cine ALL [code = 26305-8] Future Scheduled 2021-01-19 CULTURE, [facility] Test 14:59:42 URINE/SENSITIVITY ON of Medi cine ALL [code = 90673-8] Future Scheduled 2020-12-30 INFLUENZA VACCINE (#1) N PI:[id number] Test 00:00:00 [code = INFLUENZA VACCINE (#1)] Future Scheduled 2020-12-30 INFLUENZA VACCINE (#1) N PI:[id number] Test 00:00:00 [code = INFLUENZA VACCINE (#1)] Future Scheduled 2016-09-13 Lipid panel NPI:[id number] Test 00:00:00 (procedure) [code = 78630967] Future Scheduled 2016-09-13 Lipid panel NPI:[id number] Test 00:00:00 (procedure) [code = 87577914] Future Scheduled 1992-09-13 Screening for NPI:[id number] Test 00:00:00 malignant neoplasm of cervix (procedure) [code = 174073199] Future Scheduled 1992-09-13 Screening for NPI:[id number] Test 00:00:00 malignant neoplasm of cervix (procedure) [code = 968849017] Future Scheduled 1990-09-13 DTAP/TDAP/TD VACCINES IMAGING ACCOUNT MANAGER I:[id number] Test 00:00:00 (1 - Tdap) [code = DTAP/TDAP/TD VACCINES (1 - Tdap)] Future Scheduled 1990-09-13 DTAP/TDAP/TD VACCINES IMAGING ACCOUNT MANAGER I:[id number] Test 00:00:00 (1 - Tdap) [code = DTAP/TDAP/TD VACCINES (1 - Tdap)] Future Scheduled 1989-09-13 HEPATITIS C SCREENING IMAGING ACCOUNT MANAGER I:[id number] Test 00:00:00 [code = HEPATITIS C SCREENING] Future Scheduled 1989-09-13 HEPATITIS C SCREENING IMAGING ACCOUNT MANAGER I:[id number] Test 00:00:00 [code = HEPATITIS C SCREENING] Future Scheduled 1977-09-13 PNEUMOCOCCAL VACCINE NPI :[id number] Test 00:00:00 0-64 YRS (1 of 2 - PPSV23) [code = PNEUMOCOCCAL VACCINE 0-64 YRS (1 of 2 - PPSV23)] Future Scheduled 1977-09-13 PNEUMOCOCCAL VACCINE NPI :[id number] Test 00:00:00 0-64 YRS (1 of 2 - PPSV23) [code = PNEUMOCOCCAL VACCINE 0-64 YRS (1 of 2 - PPSV23)] Future Scheduled MAMMOGRAM ANNUAL [code [facility] Test = MAMMOGRAM ANNUAL] of Medic ine Future Scheduled MEDICARE AWV [code = [employer] [facility] Test MEDICARE AWV] of Medicine Future Scheduled TETANUS SHOT (ADULT) [facility] Test [code = TETANUS SHOT of Medi cine (ADULT)] Future Scheduled BMI FOLLOW [facility] PLAN [facility] Test [code = BMI FOLLOW UP of Med icine PLAN] Future Scheduled HIV SCREENING [code = [facility] Test HIV SCREENING] of Medicine Future Scheduled CERVICAL CANCER [facility] Chioma deleon Test SCREENING 3 YEAR of Medicine FOLLOW UP [code = CERVICAL CANCER SCREENING 3 YEAR FOLLOW UP] Future Scheduled FLU VACCINE > 6 MONTHS [employer] Test [code = FLU VACCINE > of Med icine 6 MONTHS] Future Scheduled CBC W/AUTO DIFF WITH Ordered: [facility] Test PLATELETS [code = 06/12/2019 of Medicin e 43789-9] Future Scheduled CELIAC DISEASE PANEL Ordered: [facility] Test [code = 31804-8] 06/12/2019 of Medicine Future Scheduled VITAMIN B12 [code = Ordered: [facility] Test 2132-9] 06/12/2019 of Medicine Future Scheduled VITAMIN D 25 HYDROXY Ordered: [facility] College Test [code = 1989-3] 06/12/2019 of Medicine Future Scheduled CALCIUM [code = Ordered: [facility] C [facility]lege Test 54710-6] 06/12/2019 of Medicine Future Scheduled COMPREHENSIVE Ordered: [facility]ge Test METABOLIC PANEL [code 06/12/2019 of Med icine = 40605-1] Future Scheduled C-REACTIVE PROTEIN [facility]: [facility] Test [code = 1988-5] 06/12/2019 of Medicine Future Scheduled MAGNESIUM [code = Ordered: [facility] Test 59747-6] 06/12/2019 of Medicine Future Scheduled IRON, TIBC AND Ordered: [facility] Test FERRITIN PANEL [code = 06/12/2019 of [place] NOCPT] Future Scheduled CLOSTRIDIUM DIFFICILE Ordered: [facility] Test TOXIN/GDH WITH REFLEX 06/12/2019 of Med icine TO PCR [code = 46694-5] Future Scheduled STELARA(R)USTEKINUMAB Ordered: [employer] Test [code = NOCPT] 06/12/2019 of Medicine Future Scheduled MAMMOGRAM ANNUAL [code [employer] Test = MAMMOGRAM ANNUAL] of Medic ine Future Scheduled TETANUS SHOT (ADULT) [employer] Test [code = TETANUS SHOT of Medi cine (ADULT)] Future Scheduled BMI FOLLOW UP PLAN [employer] Test [code = BMI FOLLOW UP of Med icine PLAN] Future Scheduled HIV SCREENING [code = [employer] [facility] HIV SCREENING] of Medicine Future Scheduled CERVICAL CANCER [facility] C ollege Test SCREENING 3 YEAR of Medicine FOLLOW UP [code = CERVICAL CANCER SCREENING 3 YEAR FOLLOW UP] Future Scheduled MEDICARE AWV (Initial) [employer] Test [code = MEDICARE AWV of Medi cine (Initial)] Future Scheduled CLOSTRIDIUM DIFFICILE Ordered: [employer] [facility] TOXIN/GDH WITH REFLEX 06/19/2019 of Med icine TO PCR [code = 91990-4] Future Scheduled CULTURE, STOOL [code = Ordered: [employer] Test 625-4] 06/19/2019 of Medicine Future Scheduled CALPROTECTIN, FECAL Ordered: [facility] [employer] Test [code = 17203-9] 06/19/2019 of Medicine Future Scheduled MAMMOGRAM ANNUAL [code [employer] Test = MAMMOGRAM ANNUAL] of Medic ine Future Scheduled TETANUS SHOT (ADULT) [employer] Test [code = TETANUS SHOT of Medi cine (ADULT)] Future Scheduled BMI FOLLOW UP PLAN [employer] Test [code = BMI FOLLOW UP of Med icine PLAN] Future Scheduled HIV SCREENING [code = [employer] Test HIV SCREENING] of Medicine Future Scheduled CERVICAL CANCER [facility] C ollege Test SCREENING 3 YEAR of Medicine FOLLOW UP [code = CERVICAL CANCER SCREENING 3 YEAR FOLLOW UP] Future Scheduled MEDICARE AWV (Initial) [employer] Test [code = MEDICARE AWV of Medi cine (Initial)] Future Scheduled MAMMOGRAM ANNUAL [code [employer] Test = MAMMOGRAM ANNUAL] of Medic ine Future Scheduled TETANUS SHOT (ADULT) [employer] Test [code = TETANUS SHOT of Medi cine (ADULT)] Future Scheduled BMI FOLLOW UP PLAN [employer] Test [code = BMI FOLLOW UP of Med icine PLAN] Future Scheduled HIV SCREENING [code = [employer] Test HIV SCREENING] of Medicine Future Scheduled CERVICAL CANCER [facility] [employer] Test SCREENING 3 YEAR of Medicine FOLLOW UP [code = CERVICAL CANCER SCREENING 3 YEAR FOLLOW UP] Future Scheduled MEDICARE AWV (Initial) [employer] Test [code = MEDICARE AWV of Medi cine (Initial)] Future Scheduled AL LO FLEX L1-BELOW L5 Ordered: [employer] Test PRE OTS [code = L0625] 07/11/2019 of Me dicine Future Scheduled MAMMOGRAM ANNUAL [code [employer] Test = MAMMOGRAM ANNUAL] of Medic ine Future Scheduled TETANUS SHOT (ADULT) [employer] Test [code = TETANUS SHOT of Medi cine (ADULT)] Future Scheduled BMI FOLLOW UP PLAN [employer] Test [code = BMI FOLLOW UP of Med icine PLAN] Future Scheduled HIV SCREENING [code = [employer] Test HIV SCREENING] of Medicine Future Scheduled CERVICAL CANCER [facility] C ollege Test SCREENING 3 YEAR of Medicine FOLLOW UP [code = CERVICAL CANCER SCREENING 3 YEAR FOLLOW UP] Future Scheduled MEDICARE AWV (Initial) [employer] Test [code = MEDICARE AWV of Medi cine (Initial)] Future Scheduled ORT - XR KNEE BILAT 4V Ordered: [employer] Test (CHARGE ONLY) [code = 12/17/2019 of Med icine 95220] Future Scheduled MAMMOGRAM ANNUAL [code [employer] Test = MAMMOGRAM ANNUAL] of Medic ine Future Scheduled TETANUS SHOT (ADULT) [employer] Test [code = TETANUS SHOT of Medi cine (ADULT)] Future Scheduled HIV SCREENING [code = [employer] [facility] HIV SCREENING] of Medicine Future Scheduled CERVICAL CANCER [facility] C ollege Test SCREENING 3 YEAR of [...] PLAN] Future Scheduled ZOSTER VACCINE (1 of [employer] Test 2) [code = ZOSTER of Medicin e VACCINE (1 of 2)] Future Scheduled CT ABD/PELVIS 1 Occurrences [facility] Test ENTEROGRAPHY W [code = starting of Me dicine 76075-0] 06/12/2019 until 01/11/2020 Future Appointment 2021-10-04 Vj Wang, 1700 NPI :[id number] 10:00:00 Regino Jones; , [place] [address] Future Appointment 2021-09-24 Vj Wang, 1700 NPI :[id number] 00:00:00 Regino Jonse; , [place] [address] Future Appointment 2021 Merari Pickett, [address] PI:[id number] 00:00:00 [facility] [address]; , [place] [address] Instructions Instructions Encounters Start End Encounter Admission Attending Care Care Encounter Source Date/Time Date/Time Type Type Clinicians Facility Department ID 2021-07-23 Outpatient LSCH [facility] [id number] NPI:132 23:40:06 [id number] 74 2021-07-20 Outpatient STLMLC STLMLC NPI:174 16:53:01 [id number] 2021-07-14 Outpatient STLMLC STLMLC NPI:174 08:11:03 [id number] 2021-07-07 Outpatient STLMLC STLMLC NPI:174 16:08:01 [id number] 2021-02-03 Outpatient NORMA MOCK Surgery [id number] [facility] 03:19:49 APRIL 2016-11-04 Inpatient Chioma CURRYRUSTYCassandra [facility] [id number] NPI:170 09:30:00 EDGARD [id number] 2021-09-01 2021-09-01 Outpatient MIRACLE DASILVA [facility] SLE [id number] SLE 12:30:30 23:59:00 RANDY 2021-08-23 2021-08-23 Outpatient ARMANDO MOCK [facility] [id number] [facility] 15:54:39 16:21:28 APRIL Crawford e of Medicin e 2021-07-28 2021-07-28 Outpatient NievesJefe MMG [facility] [id number] NPI:167 08:07:00 08:07:00 0415 [id number] 5 2021-07-242021-07-24 Outpatient Hawkins_M MMG MM NPI:167 01:09:00 01:09:00 0326 [id number] 5 2021-07-24 2021-07-24 Outpatient Hawkins_M MMG MMG [id number] NPI:167 01:09:00 01:09:00 0327 [id number] 5 2021-07-24 2021-07-24 Merari MMG [place] - [id number] N PI:167 00:00:00 00:00:00 Anahy Alarcon09 [address], Medical IMAGING ACCOUNT MANAGER: 600 [facility] [address], [place] [address] , Ph. 2021-07-14 2021-07-14 ambulatory STLMLC STLMLC [id number] NPI:174 00:00:00 00:00:00 [id number] 2021-07-12 2021-07-12 Outpatient Hawkins_M MMG [facility] NPI:167 10:19:00 10:19:00 0314 [id number] 5 2021-07-12 2021-07-12 Merari GEE [place] - [id number] N PI:167 00:00:00 00:00:00 Anahy Nice 9909 [address], Medical IMAGING ACCOUNT MANAGER: 600 [facility] [address], [place] [address] , Ph. 2021-07-05 2021-07-07 Inpatient ER ARIF, NEEMAR [facility] Internal [id number] SLE 04:16:00 14:04:00 Med 2021-07-02 2021-07-02 Outpatient MIRACLE MOCK [facility] Surgery [id number] SLE 10:43:00 14:08:00 APRIL 2021-07-02 2021-07-02 Outpatient ARMANDO MOCK [facility] [id number] [facility] 10:19:32 10:19:32 APRIL Crawford e of Medicin e 2021-07-01 2021-07-01 Outpatient [facility] [id number] [facility] 10:58:51 23:59:00 2021-06-28 2021-06-28 Outpatient AMBREEN_FAR [facility] 839 NPI:186 12:09:00 12:09:00 PATRICK 0228 [id number] 2021-06-28 2021-06-28 Vj [facility] [place] - [id number] N PI:186 00:00:00 00:00:00 Jer Saldivar 1 [id number] MD Felipe: Congregation [address] [place] [address] , Ph. [phone] 2021-06-24 Outpatient Hawkins_M MMG [facility] NPI:167 10:57:00 10:57:00 4 [id number] 5 2021-06-24 2021-06-24 Merari [facility] [place] - [id number] N PI:167 00:00:00 00:00:00 Anahy Nice 9909 91Rudi Blanchard IMAGING ACCOUNT MANAGER: 600 [facility] [address], [place] [address] , Ph. 2021-06-18 2021-06-18 Outpatient ARMANDO FIELDS [facility] [id number] [facility] 10:20:57 11:15:16 FALGUNI Naqvi Medicin varsha 2021-06-08 2021-06-08 Outpatient Hawkins_M MMG [facility] NPI:167 04:51:00 04:51:00 5 [id number] 5 2021-06-03 2021-06-03 Outpatient Hawkins_M MMG [facility] [id number] NPI:167 08:52:00 08:52:00 0204 [id number] 5 2021-05-25 2021-05-25 Office Do 1.2.840.1 [id number] Methodi 14:54:51 15:13:18 Visit Mauricio Gutierrez 07550.1.1 769 s t 3.430.2.7 Hospit a .3.069970 l .8 2021-05-25 2021-05-25 Travel 1.2.840.1 1.2.162.432 3087 [id number] Methodi 00:00:00 00:00:[address] 3.430.2.7 0.2.7.3.698 [facility] .3.271625 084.8 l .8 2021-05-13 2021-05-13 Outpatient Hawkins_M MMG [facility] NPI:167 01:55:00 01:55:00 0113 [id number] 5 2021-05-13 2021-05-13 Outpatient Hawkins_M MMG [facility] [id number] NPI:167 01:55:00 01:55:00 0119 [id number] 5 2021-05-10 2021-05-10 Surgery [facility] 1.2.840.1 [id number] [id number] Methodi 09:55:00 12:25:00 Mauricio Gutierrez 29349.1.1 608 s t 3.430.2.7 Hospit a .3.184378 l .8 2021-05-10 2021-05-10 Anesthesia Terri Forbes A. 1.2.840.1 10 [id number] Methodi 09:41:00 11:23:00 Event Anuja Drake 25211.1.[address] 3.430.2.7 Hospit a .3.536955 l .8 2021-05-10 2021-05-10 [facility] 021 [id number] [place] 00:00:00 00:00:00 Encounter MAURICIO 61Wolf Meth deepti st 2021-05-06 2021-05-06 Pre-Admiss [facility], 1.2.840.1 [id number] Methodi 10:42:34 11:42:34 ion Mauricio Gutierrez 05814.1.1 520 s t Testing 3.430.2.7 Hospit a .3.304143 l .8 2021-05-06 2021-05-06 Outpatient Hawkins_M MMG [facility] [id number] NPI:167 02:54:00 02:54:00 0108 [id number] 5 2021-05-06 2021-05-06 Travel 1.2.840.1 1.2.788.459 5882 [id number] Methodi 00:00:00 00:00:[address] 3.430.2.7 0.2.7.3.698 Ho spita .3.761220 084.8 l .8 2021-05-04 2021-05-04 Outpatient MIRACLE DODSON [facility] SLE [id number] SLEH 07:13:37 23:59:00 ELLY 2021-05-04 2021-05-04 [facility] Elly Dodson [facility] 10 [id number] NPI:118 07:13:37 23:59:00 [id number] 2021-05-03 2021-05-03 Outpatient MIRACLE LOPEZ [facility] SLE [id number] SLEH 08:45:33 23:59:00 MICHAEL 2021-05-03 2021-05-03 [facility] [id number] NPI:118 08:45:33 23:59:00 Encounter Michael Batista [id number] 2021-05-03 2021-05-03 [facility] [id number] NPI:118 00:00:00 00:00:00 Angie Go [id number] 7 2021-04-30 2021-04-30 Outpatient Hawkins_M [facility] 08944 NPI:167 10:22:00 10:22:00 0105 [id number] 5 2021-04-29 2021-04-29 Outpatient EL SLE SLE [id number] [facility]H 00:00:00 00:00:00 2021-04-28 2021-04-28 [facility] [id number] NPI:167 04:54:00 04:54:00 1229 [id number] 5 2021-04-28 2021-04-28 Merari [facility] [place] - [id number] N PI:167 00:00:00 00:00:00 Higginbotham 9909 915 [facility] Medical IMAGING ACCOUNT MANAGER: 600 [facility] [address], [place] [address] , Ph. 2021-04-22 2021-04-22 Outpatient Nieves_M [facility] [id number] NPI:167 03:28:00 03:28:00 1223 [id number] 5 2021-04-22 2021-04-22 Merari [facility] [place] - [id number] N PI:167 00:00:00 00:00:00 Higginbothamvarsha Nice 9909 915 [facility] IMAGING ACCOUNT MANAGER: [address] [facility] [address], [place] [address] , Ph. 2021-04-16 2021-04-16 Outpatient Nieves_M [facility] [id number] -2020 NPI:167 12:39:00 12:39:00 1221 [id number] 5 2021-04-15 2021-04-15 Outpatient ARMANDO MOCK [facility] [id number] [facility] 09:44:17 10:29:41 APRIL reid of Medicin e 2021-04-13 2021-04-[address] [facility] [id number] NPI:118 00:00:00 00:00:00 Only Michael O. 46 [id number] 2021-03-31 2021-03-31 Travel 1.2.840.1 1.2.283.376 7787 004703 Methodi 00:00:00 00:00:[address] 3.430.2.7 0.2.7.3.698 Ho spita .3.630071 084.8 l .8 2021-03-30 2021-03-30 Prep for Jerry, 1.2.840.1 [id number] [id number] Methodi 00:00:00 00:00:00 Surgery Muriel P [address]648.1.[address] 3.430.2.7 Hospit a .3.692192 l .8 2021-03-29 2021-03-29 Outpatient AMBREEN_MAN [facility] 839 NPI:186 11:52:00 11:52:00 PATRICK 1129 [id number] 9 2021-03-29 2021-03-29 Vj [facility] [place] - [id number] N PI:186 00:00:00 00:00:00 Jer Saldivar 1 [id number] MD Felipe: Congregation [address] [place] [address] , Ph. [phone] 2021-03-23 Outside [facility] [id number] NPI:118 00:00:00 00:00:00 Angie Reynoso [id number] 7 Chema 2021-03-17 2021-03-17 Outpatient Hawkins_M MMG [facility] 34046 NPI:167 11:17:00 11:17:00 1124 [id number] 5 2021-03-12 2021-03-12 Office SONA Lopez 1.2.840.114 [id number] 95 [facility] 09:30:00 12:19:22 Visit Michael AMBULATOR 350.1.13.21 College Y 0.2.7.2.686 of 102.2898469 [facility] 355 e 2021-03-11 2021-03-11 Office Do, 1.2.840.1 [id number] Methodi 13:59:32 15:38:25 Visit Mauricio Gutierrez 00679.1.1 490 s t 3.430.2.7 Hospit a .3.901886 l .8 2021-03-11 2021-03-11 Travel 1.2.840.1 1.2.163.924 2034 [id number] Methodi 00:00:00 00:00:[address] 3.430.2.7 0.2.7.3.698 Ho spita .3.764324 084.8 l .8 2021-03-04 2021-03-04 Telephone Gilson 1.2.840.1 [id number] [id number] Methodi 00:00:00 00:00:[address] 3.430.2.7 Hospit a .3.417631 l .8 2021-03-02 2021-03-02 Outpatient Hawkins_M MMG [facility] [id number] NPI:167 03:02:00 03:02:00 1102 [id number] 5 2021-03-02 2021-03-02 Outpatient Hawkins_M MMG [facility] 06732 NPI:167 03:02:00 03:02:00 1104 [id number] 5 2021-03-02 2021-03-02 Maxi [facility] [place] - [id number] N PI:167 00:00:00 00:00:00 Satnam Nice 9909 91Jose Tinajero MD: Medical [address] [place] [address] [address], [place] [address] , Ph. [phone] 2021-02-23 2021-02-23 Outpatient Hawkins_M MMG [facility] 44353 NPI:167 08:10:00 08:10:00 1026 [id number] 5 2021-02-19 2021-02-19 Outpatient Hawkins_M MMG [facility] 95152 NPI:167 12:41:00 12:41:00 1022 [id number] 5 2021-02-19 2021-02-19 Merari [facility] [place] - [id number] N PI:167 00:00:00 00:00:00 Anahy Nice 99Kaia 91Rudi Blanchard IMAGING ACCOUNT MANAGER: [address] [place] [address] [address], [place] [address] , Ph. 2021-02-02 2021-02-02 Telephone Adryan 1.2.840.1 [id number] Methodi 00:00:00 00:00:[address] 3.430.2.7 Hospit a .3.530433 l .8 2021-01-25 2021-01-25 Outpatient Hawkins_M MMG [facility] NPI:167 03:14:00 03:14:00 0927 [id number] 5 2021-01-25 2021-01-25 Outpatient Hawkins_M MMG [facility] 37254 NPI:167 03:14:00 03:14:00 0928 [id number] 5 2021-01-25 2021-01-25 Merari [facility] [place] - [id number] N PI:167 00:00:00 00:00:00 Anahy Nice 9909 [address] IMAGING ACCOUNT MANAGER: 600 [facility] [address], [place] [address] , Ph. 2021-01-19 2021-01-19 Office ARMANDO LOPEZ 1.2.840.114 [id number] [facility] 13:31:56 16:19:42 Visit OYEBUNHI AMBULATOR 350.1.13.21 College Y 0.2.7.2.686 [id number] Medi marlene 355 e 2021-01-18 2021-01-18 Outpatient Hawkins_M MMG [facility] NPI:167 10:53:00 10:53:00 0920 [id number] 5 2020-12-28 2020-12-28 Outpatient AMBREEN_FAR [place] 839 NPI:186 11:52:00 11:52:00 HANA 0830 [id number] 9 2020-12-28 2020-12-28 [place]iz [place] - [id number] N PI:186 00:00:00 00:00:00 Jer Saldivar 1 [id number] MD Felipe: Congregation [address] [facility] [place] [address] , Ph. [phone] 2020-12-18 Outpatient Hawkins_M MMG [facility] 01775 NPI:167 02:10:00 02:10:00 0820 [id number] 5 2020-12-18 2020-12-18 Outpatient Hawkins_M MMG [facility] 17924 NPI:167 02:10:00 02:10:00 0828 [id number] 5 2020-12-18 2020-12-18 Merari MMG [place] - [id number] N PI:167 00:00:00 00:00:00 Anahy Nice 9909 91Rudi Blanchard IMAGING ACCOUNT MANAGER: [address] [address], [place] [address] , Ph. 2020-12-15 2020-12-15 [place] [id number] NPI:167 09:22:00 09:22:00 0819 [id number] 2020-12-08 2020-12-08 [place] [id number] NPI:167 03:08:00 03:08:00 0810 [id number] 2020-12-08 2020-12-08 Merari JAY [place] - [id number] N PI:167 00:00:00 00:00:00 Anahy Alarcon09 9[address] [facility] IMAGING ACCOUNT MANAGER: [address] [address], [place] [address] , Ph. 2020-12-05 2020-12-05 [place] [id number] NPI:167 12:26:00 12:26:00 0809 [id number] 2020-12-02 2020-12-02 Outpatient [facility]M [facility] [id number] NPI:167 06:31:00 06:31:00 0806 [id number] 2020-12-02 2020-12-02 Outpatient Hawkins[facility]M [facility] [id number] NPI:167 06:31:00 06:31:00 0807 [id number] 2020-11-30 2020-11-30 Outpatient [facility]M [facility] [id number] NPI:167 12:35:00 12:35:00 0802 [id number] 2020-11-30 2020-11-30 Merari GEEG [place] - [id number] N PI:167 00:00:00 00:00:00 Anahy Nice 9909 91Jose Pickett Medical IMAGING ACCOUNT MANAGER: [address] [facility] [address], [place] [address] , Ph. 2020-11-20 2020-11-20 [facility] [id number] NPI:118 08:15:16 23:59:00 Encounter 1.5, [facility] Jase Mr [id number] 2020-11-20 2020-11-20 [facility] [id number] NPI:118 08:00:00 08:14:00 Encounter 1.5, [facility] Jase Mr [id number] 2020-11-20 2020-11-20 Outpatient [facility] [id number] SLE 00:00:00 00:00:00 2020-11-20 2020-11-20 Outpatient [facility] [id number] SLE 00:00:00 00:00:00 APRIL 2020-11-17 2020-11-17 Outpatient Hawkins_M MMG [facility] [id number] NPI:167 02:14:00 02:14:00 0720 [id number] 2020-11-17 2020-11-17 Merari MMG [place] - [id number] N PI:167 00:00:00 00:00:00 Anahy Nice 9909 915 [facility] Medical IMAGING ACCOUNT MANAGER: [address] [facility] [address], [place] [address] , Ph. 2020-11-10 2020-11-10 [facility] [id number] NPI:118 00:00:00 00:00:00 Orders April [id number] 2020-10-26 2020-10-26 Outpatient Hawkins_M MMG [facility] [id number] NPI:167 02:35:00 02:35:00 0628 [id number] 2020-10-26 2020-10-26 Merari MMG [place] - [id number] N PI:167 00:00:00 00:00:00 nAahy Nice 9909 915 [facility] Medical IMAGING ACCOUNT MANAGER: 600 [facility] [address], [place] [address] , Ph. 2020-10-12 2020-10-12 Outpatient Hawkins_M MMG MMG [id number] NPI:167 03:56:00 03:56:00 0614 [id number] 2020-10-12 2020-10-12 Outpatient Hawkins_M MMG MMG [id number] NPI:167 03:56:00 03:56:00 0622 [id number] 2020-10-12 2020-10-12 Merari [facility] [place] - [id number] N PI:167 00:00:00 00:00:00 Anahy Nice 9909 915 [facility] Medical IMAGING ACCOUNT MANAGER: [address] [facility] [address], [place] [address] , Ph. 2020-10-05 2020-10-05 Outpatient AMBREEN_FAR [facility] 839 69 NPI:186 12:48:00 12:48:00 PATRICK 0607 [id number] 2020-10-05 2020-10-05 [facility] [place] - [id number] N PI:186 00:00:00 00:00:00 Jer Saldivar 1 [id number] MD Felipe: Congregation [address] [place] [address] , Ph. [phone] 2020-09-22 Outpatient Hawkins_M MMG MMG [id number] NPI:167 01:04:00 01:04:00 0527 [id number] 5 2020-08-18 2020-08-18 Outpatient Hawkins_M MMG MMG 60205 NPI:167 09:58:00 09:58:00 0423 [id number] 5 2020-08-12 2020-08-12 Outpatient Hawkins_M MMG MMG [id number] NPI:167 04:29:00 04:29:00 0414 [id number] 5 2020-08-12 2020-08-12 Outpatient Hawkins_M MMG MMG [id number] NPI:167 04:29:00 04:29:00 0415 [id number] 5 2020-08-12 2020-08-12 Outpatient Hawkins_M MMG MMG [id number] NPI:167 04:29:00 04:29:00 0418 [id number] 2020-08-12 2020-08-12 Outpatient Hawkins_M MMG MMG [id number] NPI:167 04:29:00 04:29:00 0420 [id number] 2020-08-12 2020-08-12 Merari MMG [place] - [id number] N PI:167 00:00:00 00:00:00 Anahy Nice 9909 91Rudi Blanchard IMAGING ACCOUNT MANAGER: [address] [facility] [address] [address] , Ph. 2020-08-03 2020-08-03 [facility] [id number] 675 Memoria 10:11:00 14:30:00 Surgery r [place] [address] l [facility] 2020-08-03 2020-08-03 Outpatient [facility] 7534 Memoria 05:11:00 09:30:00 ELLY Aparicio [facility] 2020-07-31 2020-07-31 Outpatient Yan_W MMG MM [id number] NPI:167 11:16:00 11:16:00 0402 [id number] 5 2020-07-31 2020-07-31 Outpatient Yan_W MMG MMG [id number] 021 NPI:167 11:16:00 11:16:00 0403 [id number] 5 2020-07-31 2020-07-31 PIERRE Nicole [place] - [id number] NPI:167 00:00:00 00:00:00 MD: Candi Nice 9909 915 [facility] [address], [facility], Otolaryngol [place] [address] , Ph. 2020-07-16 2020-07-16 Outpatient Yan_W MMG [facility] [id number] 021 NPI:167 05:29:00 05:29:00 0401 [id number] 2020-07-06 2020-07-06 Outpatient AMBREEN_MAN VILLA [facility] 839 NPI:186 10:58:00 10:58:00 PATRICK 0308 [id number] 2020-07-06 2020-07-06 Vj [facility] [place] - [id number] N PI:186 00:00:00 00:00:00 Loridirk [place] 1 [id number] MD Felipe: Congregation [address] [place] [address] , Ph. ([phone]) 2020-06-23 2020-06-23 Outpatient Yan_W MMG [facility] [id number] 021 NPI:167 03:46:00 03:46:00 0223 [id number] 2020-06-23 2020-06-23 Outpatient Yan_W MMG [facility] [id number] 021 NPI:167 03:46:00 03:46:00 0225 [id number] 2020-06-23 2020-06-23 Merari [facility] [place] - [id number] N PI:167 00:00:00 00:00:00 Anahy Nice 9909 915 Rudi Pickett IMAGING ACCOUNT MANAGER: [address] [facility] [address], [place] [address] , Ph. 2020-06-03 2020-06-03 Outpatient Yan_W MMG [facility] [id number] 021 NPI:167 12:45:00 12:45:00 0203 [id number] 5 2020-05-27 2020-05-27 Outpatient Yan_W MMG MM [id number] 021 NPI:167 02:53:00 02:53:00 0127 [id number] 2020-05-27 2020-05-27 Outpatient Yan_W MMG MMG [id number] 021 NPI:167 02:53:00 02:53:00 0128 [id number] 2020-05-27 2020-05-27 Parish Adams [facility] [place] - [id number] NPI:167 00:00:00 00:00:00 MD: Candi Nice 9909 915 [facility] [address], [facility], Otolaryngol LACHELLE Maur[place] [address] , Ph. 2020-05-11 2020-05-12 [facility] [id number] 675 Memoria 15:36:00 01:40:00 Surgery r [place] [address] l [facility] 2020-05-11 2020-05-11 Outpatient [facility] 7533 Memoria 09:36:00 19:40:00 ELLY ruelas [facility] 2020-05-10 2020-05-10 [facility] 63644 NPI:167 07:52:00 07:52:00 0110 [id number] 2020-05-10 2020-05-10 [facility] NPI:167 07:52:00 07:52:00 0115 [id number] 2020-05-10 2020-05-10 Outpatient Hawkins_M MMG [facility] [id number] NPI:167 07:52:00 07:52:00 0120 [id number] 2020-05-10 2020-05-10 [facility] 53069 NPI:167 07:52:00 07:52:00 0123 [id number] 2020-05-04 2020-05-04 Outpatient Hawkins_M MMG [facility] 87899 NPI:167 11:55:00 11:55:00 0104 [id number] 5 2020-05-04 2020-05-04 [facility] 19637 NPI:167 11:55:00 11:55:00 0107 [id number] 2020-05-04 2020-05-04 Merari [facility] [place] - [id number] N PI:167 00:00:00 00:00:00 Anahy Nice 9909 91Rudi Blanchard IMAGING ACCOUNT MANAGER: [address] [facility] [address], [place] [address] , Ph. 2020-04-30 2020-04-30 Outpatient Hawkins_M MMG MMG NPI:167 10:21:00 10:21:00 1231 [id number] 2020-04-28 2020-04-28 Outpatient G_Pappas MMG MMG 2019 NPI:167 11:28:00 11:28:00 1229 [id number] 5 2020-04-26 2020-04-26 Outpatient AMBREEN_FAR MEHOP NDHOP 839 NPI:186 03:43:00 03:43:00 HANA 0304 [id number] 2020-04-26 2020-04-26 Outpatient AMBREEN_FAR MEHOP MEHOP 839 NPI:186 03:43:00 03:43:00 HANA 1227 [id number] 2020-04-10 2020-04-10 Outpatient G_Pappas MMG MMG 2019 NPI:167 05:24:00 05:24:00 1211 [id number] 2020-04-08 2020-04-08 Outpatient AMBREEN_FAR MEHOP [facility] 839 NPI:186 04:50:00 04:50:00 HANA 1209 [id number] 2020-04-08 2020-04-08 [facility] [place] - [id number] N PI:186 00:00:00 00:00:00 Jer Saldivar 1 [id number] MD Felipe: Congregation [address] [place] [address] , Ph. [phone] 2020-04-07 2020-04-07 Outpatient AMBREEN_FAR MEHOP NDHOP 839 NPI:186 12:19:00 12:19:00 HANA 1208 [id number] 2020-04-02 2020-04-02 Outpatient G_Pappas MMG MMG [id number] NPI:167 03:25:00 03:25:00 1203 [id number] 2020-04-02 2020-04-02 Outpatient G_Pappas MMG MMG [id number] NPI:167 03:25:00 03:25:00 1207 [id number] 2020-04-02 2020-04-02 Jake MMG [place] - [id number] N PI:167 00:00:00 00:00:00 Discovery Joan 9909 915 MD: [address] [place] [address], [place] [address] , Ph. [phone] 2020-03-28 2020-03-28 Outpatient Hawkins_M MMG MMG [id number] NPI:167 01:09:00 01:09:00 1128 [id number] 2020-03-18 2020-03-18 Outpatient AMBREEN_FAR NDHOP [facility] 839 NPI:186 10:35:00 10:35:00 PATRICK 1118 [id number] 2020-03-18 2020-03-18 Outpatient Hawkins_M MMG MMG [id number] NPI:167 03:31:00 03:31:00 1118 [id number] 2020-03-18 2020-03-18 Outpatient Hawkins_M MMG MMG 85083 NPI:167 03:31:00 03:31:00 1119 [id number] 2020-03-18 2020-03-18 Outpatient Hawkins_M MMG MMG 84567 NPI:167 03:31:00 03:31:00 1123 [id number] 5 2020-03-18 2020-03-18 Merari MMG [place] - [id number] N PI:167 00:00:00 00:00:00 Anahy Nice 9909 91Rudi Blanchard IMAGING ACCOUNT MANAGER: [address] [place] [address] [address] [address] , Ph. 2020-03-16 2020-03-16 Outpatient Hawkins_M MMG MMG [id number] NPI:167 12:25:00 12:25:00 1116 [id number] 2020-03-09 2020-03-09 Outpatient G_Pappas MMG MMG [id number] NPI:167 04:12:00 04:12:00 1109 [id number] 2020-03-05 2020-03-05 Outpatient Yan_W MMG MMG [id number] NPI:167 10:15:00 10:15:00 1105 [id number] 5 2020-02-11 2020-02-11 Outpatient Yan_W MMG MMG [id number] 020 NPI:167 11:59:00 11:59:00 1013 [id number] 2020-02-07 2020-02-07 Outpatient AMBREEN_FAR MEHOP [facility] 839 NPI:186 04:36:00 04:36:00 HANA 1102 [id number] 2020-01-24 2020-01-24 Outpatient cMcDonald MMG MMG [id number] NPI:167 12:07:00 12:07:00 0925 [id number] 5 2020-01-24 2020-01-24 Outpatient cMcDonald MMG MMG [id number] NPI:167 12:07:00 12:07:00 0926 [id number] 5 2020-01-24 2020-01-24 Merari MM [place] - [id number] N PI:167 00:00:00 00:00:00 Anahy Nice 99Kaia 91Rudi Blanchard IMAGING ACCOUNT MANAGER: [address] [place] [address] [address] , Ph. 2020-01-17 2020-01-17 Outpatient cMcDonald MMG MMG [id number] NPI:167 02:28:00 02:28:00 0918 [id number] 2020-01-17 2020-01-17 Outpatient cMcDonald MMG MMG [id number] NPI:167 02:28:00 02:28:00 0920 [id number] 2020-01-17 2020-01-17 Jake MM [place] - [id number] N PI:167 00:00:00 00:00:00 Discovery Joan 9909 915 MD: [address] [place] [address], [place] [address] , Ph. [phone] 2020-01-08 2020-01-08 Outpatient EL SLEH SLEH [id number] SLEH 00:00:00 00:00:00 2019-12-17 2019-12-17 Office ARMANDO Sandoval 1.2.840.114 [id number] 13:39:48 15:29:29 Visit Mayaamad AMBULATOR 350.1.13.21 Y 0.2.7.2.686 [id number] 600 2019-12-17 2019-12-17 Office ARMANDO Sandoval 1.2.840.[id number] [place] [address] 13:39:48 15:29:29 Visit Mayaamad AMBULATOR 350.1.13.21 College Y 0.2.7.2.686 [id number] [facility] 600 e 2019-12-11 2019-12-11 Telephone Milli MTTASHI 1.2.840.114 [id number] 00:00:00 00:00:00 [facility] 350.1.13.10 Surgical 4.2.7.2.686 Specialti [id number] 198 [place] 2019-12-09 2019-12-09 Outpatient AMBREEN_[facility] 839 -2019 NPI:186 03:35:00 03:35:00 ROM 0810 [id number] 2019-12-09 2019-12-09 [facility] [place] - [id number] N PI:186 00:00:00 00:00:00 Jayankorinal [place] 1 [id number] MD Felipe: Congregation [address] [place] [address] , Ph. [phone] 2019-12-08 2019-12-08 Outpatient cMcDonald MMG MMG [id number] NPI:167 10:12:00 10:12:00 0809 [id number] 2019-12-03 2019-12-03 Outpatient cMcDonald MMG MMG [id number] NPI:167 02:38:00 02:38:00 0804 [id number] 5 2019-12-03 2019-12-03 Outpatient cMcDonald MMG MMG [id number] NPI:167 02:38:00 02:38:00 0805 [id number] 5 2019-12-03 2019-12-03 Outpatient cMcDonald MMG MMG [id number] NPI:167 02:38:00 02:38:00 0806 [id number] 5 2019-12-03 2019-12-03 [facility] [place] - [id number] N PI:167 00:00:00 00:00:00 Discovery Milli 99 [phone] MD: [address] [place] [address] - [facility] [address], [place] [address] , Ph. 2019-12-02 2019-12-02 Outpatient cMcDonald MMG MMG NPI:167 10:16:00 10:16:00 0803 [id number] 2019-11-26 2019-11-26 Outpatient Hawkins_M MMG MMG NPI:167 12:11:00 12:11:00 0729 [id number] 5 2019-11-14 2019-11-14 Outpatient Hawkins_M MMG MMG NPI:167 06:53:00 06:53:00 0716 [id number] 2019-11-12 2019-11-12 Outpatient Hawkins_M MMG MMG NPI:167 12:34:00 12:34:00 0714 [id number] 2019-11-12 2019-11-12 Outpatient Hawkins_M MMG MMG NPI:167 12:34:00 12:34:00 0715 [id number] 2019-11-07 2019-11-07 [facility] [id number] 0519 8000 09:07:33 09:22:33 Visit [facility] 350.1.13.10 Surgical 4.2.7.2.686 [facility] [id number] [address] 2019-11-07 2019-11-07 Outpatient R MILLI [facility] [address] [id number] NPI:183 09:00:00 09:00:00 SHANELLE [id number] 2019-11-07 2019-11-07 Outpatient Hawkins_M MMG MMG NPI:167 02:16:00 02:16:00 0709 [id number] 2019-11-07 2019-11-07 Outpatient Hawkins_M MMG MMG NPI:167 02:16:00 02:16:00 0711 [id number] 5 2019-11-07 2019-11-07 Outpatient Hawkins_M MMG MMG [id number] NPI:167 02:16:00 02:16:00 0713 [id number] 2019-11-07 2019-11-07 Merari MMG [place] - [id number] N PI:167 00:00:00 00:00:00 Anahy Nice 9909 915 Rudi Pickett IMAGING ACCOUNT MANAGER: [address] [address] , Ph. 2019-11-06 2019-11-06 Outpatient Hawkins_M MMG MMG [id number] NPI:167 02:20:00 02:20:00 0708 [id number] 2019-10-24 2019-10-24 Outpatient Hawkins_M MMG MMG [id number] NPI:167 11:34:00 11:34:00 0702 [id number] 5 2019-10-15 2019-10-15 Outpatient Hawkins_M MMG MMG [id number] NPI:167 04:41:00 04:41:00 0616 [id number] 2019-10-15 2019-10-15 Julia MMG [place] - [id number] N PI:167 00:00:00 00:00:00 Discovery Zeus 9909 915 IMAGING ACCOUNT MANAGER: [address] [address] , Ph. 2019-09-19 2019-09-19 Outpatient SLEH SLEH [id number] [id number] SLEH 00:00:00 00:00:00 [id number] 2019-09-13 2019-09-13 Outpatient Hawkins_M MMG MMG NPI:167 02:27:00 02:27:00 0608 [id number] 2019-09-13 2019-09-13 Outpatient Hawkins_M MMG MMG [id number] NPI:167 02:27:00 02:27:00 0615 [id number] 5 2019-09-12 2019-09-12 Outpatient EL SLEH SLEH [id number] SLEH 00:00:00 00:00:00 2019-09-12 2019-09-12 Outpatient SLEH SLEH [id number] [id number] SLEH 00:00:00 00:00:00 [id number] 2019-09-10 2019-09-10 Outpatient AMBREEN_FAR MEHOP NDHOP 839 NPI:186 10:28:00 10:28:00 HANA 0512 [id number] 2019-09-09 2019-09-09 Outpatient AMBREEN_FAR MEHOP MEHOP 839 NPI:186 11:55:00 11:55:00 HANA 0511 [id number] 9 2019-09-09 2019-09-09 [facility] [place] - [id number] N PI:186 00:00:00 00:00:00 Jer Saldivar 1 [id number] MD Felipe: Congregation [address] [place] [address] , Ph. [phone] 2019-09-08 Outpatient AMBREEN_FAR MEHOP [facility] 839 NPI:186 12:52:00 12:52:00 HANA 0510 [id number] 9 2019-08-23 2019-08-23 Outpatient Hawkins_M MMG MMG NPI:167 11:16:00 11:16:00 0424 [id number] 5 2019-08-23 2019-08-23 Merari MMG [place] - [id number] N PI:167 00:00:00 00:00:00 Anahy Carrasco 91Jose Pickett Medical IMAGING ACCOUNT MANAGER: 600 [facility] [address], [place] [address] , Ph. 2019-07-28 2019-07-28 Outpatient Hawkins_M MMG MMG [id number] NPI:167 06:03:00 06:03:00 0329 [id number] 2019-07-26 2019-07-26 Outpatient Hawkins_M MMG MMG [id number] NPI:167 09:49:00 09:49:00 0327 [id number] 5 2019-07-26 2019-07-26 Merari MMG [place] - [id number] N PI:167 00:00:00 00:00:00 Anahy Alarcon09 915 Nieves Medical IMAGING ACCOUNT MANAGER: 600 [facility] [address], [place] [address] , Ph. 2019-07-15 2019-07-15 Outpatient [facility] [id number] NPI:167 06:35:00 06:35:00 6 [id number] 2019-07-12 2019-07-12 Outpatient A_Byrd GERARDG [facility] [id number] 020 NPI:167 04:55:00 04:55:00 3 [id number] 5 2019-07-12 2019-07-12 Outpatient AMBREEN_MAN VILLA [facility] 839 NPI:186 01:29:00 01:29:00 PATRICK 0320 [id number] 2019-07-12 2019-07-12 Merari [facility] [place] - [id number] N PI:167 00:00:00 00:00:00 Anahy Nice 9909 915 Nieves Medical IMAGING ACCOUNT MANAGER: [address] [facility] [address], [place] [address] , Ph. 2019-07-11 2019-07-11 Office Mulugeta, BCM 1.2.840.114 [id number] 11:02:17 12:07:46 Visit Luís Keating AMBULATOR 350.1.13.21 Y 0.2.7.2.686 [id number] 2019-07-11 2019-07-11 Office Mulugeta, BCM 1.2.840.[id number] [place] [address] 11:02:17 12:07:46 Visit Luís Keating AMBULATOR 350.1.13.21 College Y 0.2.7.2.686 of [id number] [facility] 815 e 2019-06-26 2019-06-26 Outpatient A[facility]rd [facility] [id number] 020 NPI:167 11:17:00 11:17:00 0226 [id number] 2019-06-19 2019-06-[address] [facility] 1.2.840.114 [id number] 09:23:37 13:56:08 Visit Jase 350.1.13.21 0.2.7.2.686 [id number] 2019-06-19 2019-06-19 Office Jani [facility] 1.2.840.114 [id number] [facility] 09:23:37 13:56:08 Visit Jase 350.1.13.21 Co llege 0.2.7.2.686 of [id number] [facility] 510 e 2019-06-19 2019-06-19 Office Kwapisz, BCM 1.2.840.114 [id number] [facility] 10:50:49 11:20:49 Visit April AMBULATOR 350.1.13.21 Y 0.2.7.2.686 [id number] 2019-06-19 2019-06-19 Office Kwapisz, BCM 1.2.840.[id number] [place] [address] 10:50:49 11:20:49 Visit April AMBULATOR 350.1.13.21 College Y 0.2.7.2.686 of [id number] [facility] 325 e 2019-06-12 2019-06-12 Office Kwapisz, BCM 1.2.840.114 [id number] 08:17:31 08:47:31 Visit April AMBULATOR 350.1.13.21 Y 0.2.7.2.686 [id number] 2019-06-12 2019-06-12 Office Kwapisz, BCM 1.2.840.114 [id number] 733 [facility] 08:17:31 08:47:31 Visit April AMBULATOR 350.1.13.21 College Y 0.2.7.2.686 of [id number] [facility] 325 e 2019-06-10 2019-06-10 Outpatient AMBREEN_MAN VILLA 839 -2019 NPI:186 12:00:00 12:00:00 PATRICK 0210 [id number] 2019-06-10 2019-06-10 Vj VILLA [place] - [id number] N PI:186 00:00:00 00:00:00 Jer Saldivar 1 [id number] MD Felipe: Congregation 1700 HOP - [facility] Regino Jones, [facility], [place] [address] , Ph. [phone] 2019-06-05 Outpatient [facility] [id number] NPI:167 11:10:00 11:10:00 0205 [id number] 2019-05-08 2019-05-08 Outpatient G_Pappas MMG [facility] [id number] NPI:167 11:02:00 11:02:00 0108 [id number] 2019-05-08 2019-05-08 Mychal Espinosa [facility] [place] - [id number] N PI:167 00:00:00 00:00:00 MD Suhas: [address] [place] [address] , Ph. 2019-04-22 2019-04-22 Outpatient [facility] [id number] NPI:167 11:35:00 11:35:00 0107 [id number] 2019-03-18 2019-03-18 [facility] [place] - [id number] N PI:186 00:00:00 00:00:00 Michaelyandomingo Saldivar 1 [id number] MD Felipe: Congregation [address] [facility] [address], [address] [address] , Ph. ([phone]) 2019-01-29 2019-01-29 Jake GEE [place] - [id number] N PI:167 00:00:00 00:00:00 Discovery Joan 9909 915 MD: [address] [place] [address] , Ph. [phone] 2019-01-25 2019-01-25 Jake GEE [place] - [id number] N PI:167 00:00:00 00:00:00 Discovery Joan 9909 915 MD: [address] [place] [address], [place] [address] , Ph. [phone] 2019-01-07 2019-01-07 Jake JAY [place] - [id number] N PI:167 00:00:00 00:00:00 Discovery Joan 9909 915 MD: [address] [place] [address] - [facility] 101, [place] [address] , Ph. [phone] 2018-12-27 2018-12-27 Jake JAY [place] - [id number] N PI:167 00:00:00 00:00:00 Discovery Joan 9909 915 MD: [address] [place] [address] 101, [place] [address] , Ph. [phone] 2018-12-18 2018-12-18 Office Otto Daniels 1.2.840.114 709 [id number] 09:55:23 16:38:01 Visit K AMBULATOR 350.1.13.21 Y 0.2.7.2.686 [id number] [facility] 2018-12-18 2018-12-18 Office Otto Daniels 1.2.840.114 [id number] [id number] [facility] 09:55:23 16:38:01 Visit K AMBULATOR 350.1.13.21 College Y 0.2.7.2.686 [id number] [facility] 325 e 2018-12-17 2018-12-17 Mychal JAY [place] - [id number] N PI:167 00:00:00 00:00:00 MD Suhas: [address] [place] [address], [place] [address], [facility] [place] [address] , Ph. 2018-12-07 2018-12-07 Mychal JAY [place] - [id number] N PI:167 00:00:00 00:00:00 MD Suhas: [address] [place] [address], [place] - [address], [facility] [place] [address] , Ph. 2018-10-17 2018-10-17 Mychal JAY [place] - [id number] N PI:167 00:00:00 00:00:00 MD Suhas: [address] [place] [address], [place] - [address], [facility] [place] [address] , Ph. 2018-09-17 2018-09-17 Julia GEE [place] - [id number] N PI:167 00:00:00 00:00:00 Discovery Zeus 9909 915 IMAGING ACCOUNT MANAGER: 600 [facility], [place] - [address], [facility], [place] [address] , Ph. 2018-08-29 2018-08-29 Mychal Espinosa MM [place] - [id number] N PI:167 00:00:00 00:00:00 MD Suhas: [address] [place] [address], [facility] [place] 201, [facility] [place] [address] , Ph. 2018-08-15 2018-08-15 Mychal Espinosa [facility] [place] - [id number] N PI:167 00:00:00 00:00:00 MD Suhas: [address] [place] [address] 201, [facility], [place] [address] , Ph. 2017-02-18 2017-02-19 [facility] 12311 62342 Mem[facility] 20:36:00 00:04:00 r [place] 32 l Oden Prachi 2016-10-10 2016-10-12 [facility]patient [facility] 91733 32017 Memoria 05:55:00 15:24:00 r [place] 31 l O[place] Prachi 2016-07-15 2016-07-19 Inpatient 1 HARSHIL ALLEN [facility] [id number] [facility] 18:47:00 10:30:00 [facility] 2016-02-10 2016-02-10 [facility] [id number] [facility] 18:15:00 21:40:00 r [place] 30 l [place] 2014-08-13 2014-08-13 nullFlavo [facility] [id number] [facility] 11:48:00 17:01:00 Emergency r [place] 29 l [facility] 2014-03-09 2014-03-09 nullFlavo [facility] [id number] [facility] 11:36:00 18:21:00 Emergency r [place] 28 l [facility] 2014-01-14 2014-01-14 [facility] [id number] [facility] 12:52:00 23:11:00 Emergency r [place] 27 l [facility] 2014-01-14 2014-01-14 [facility] [id number] [facility] 02:58:00 07:26:00 Emergency r [place] [facility] l [facility] 2013-11-22 2013-11-22 [facility] [id number] [facility] 15:32:00 16:37:00 Emergency r [place] 25 l [facility] 2013-11-19 2013-11-19 Emergency E OEI, C ECC [id number] NPI:[id number] 10:08:00 12:55:00 RADHA [id number] Results Test Description Test Time Test Comments Results Result [facility] e Comments CT, EXTREMITY, 2021-09-01 Unlisted Reason LOWER, WITHOUT IV 14:21:00 for Exam - CONTRAST, RIGHT Click Yes and Enter Reason [facility] - Below->[facility] Reason for LAURA DEL TORO Exam->avascular JACEY : necrosis, 1971 medial femoral Sex: condyle, right F knee *FINAL REPORT TECHNIQUE:Computed tomography imaging of the right lower extremity was performed WITHOUT injected contrast. HISTORY: Preoperative evaluationCOMPARISON : None available. FINDINGS: No acute fracture. Avascular necrosis of the distal femur with subchondral fracturing posteriorly and involving the proximal femur. Surgical findings of prior decompression. The hip and ankle joints are aligned. No soft tissue masses or fluid collections. IMPRESSION: Preoperative CT of the right lower extremity with Nitin protocol. 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 Signed: Cody Leon MDReport Verified Date/Time: 09/01/2021 14:21:30 Reading Location: [facility] Reading Room [address] [place] [address] calcium level 2021-07-23 07:56:00 Test Item Value Reference Range Interpretation Comme nts calcium level (test code = calcium level) 8.5 mg/dL 8.6-10.0 L NPI:[id number] nitrogen [Mass/volume] in Serum or [id number] 00:00:00 Test Item Value Reference Range Interpretation Comments Urea nitrogen [Mass/volume] in Serum 13 mg/dL 6-20 or Plasma (test code = 3094-0) NPI:[id number] kinase [Enzymatic activity/volume] in Serum or Plasma 2021-07-23 00:00:00 Test Item Value Reference Range Interpretation Comments creatine kinase (test code = creatine 58 U/L 20-180 kinase) NPI:[id number] metabolic 2000 panel - Serum or [id number] 08:42:00 Test Item Value Reference Range Interpretation Comments glucose (test code = glucose) 88 mg/dL 74-106 Urea nitrogen [Mass/volume] in 12 mg/dL 6-20 Serum or Plasma (test code = 3094-0) osmolality calculated,serum (test 275 mOsm/kg 280-300 L code = osmolality calculated,serum) creatinine (test code = 0.75 mg/dL 0.50-0.90 creatinine) glomerular filtration rate (test >60.00 code = glomerular filtration rate) Urea nitrogen/Creatinine [Mass 16.0 12.0-20.0 Ratio] in Serum or Plasma (test code = 3097-3) sodium level (test code = sodium 138 mmol/L 135-145 level) Potassium [Moles/volume] in Body 3.9 mmol/L 3.5-5.2 fluid (test code = 2821-7) chloride level (test code = 101 mmol/L 98-108 chloride level) CO2 (test code = CO2) 27 mmol/L 21-32 anion gap (test code = anion gap) 13.9 mEq/L 12.0-20.0 calcium level (test code = 9.1 mg/dL 8.6-10.0 calcium level) total protein (test code = total 6.6 g/dL 6.6-8.7 protein) albumin (test code = albumin) 4.0 g/dL 3.5-5.2 globulin (test code = globulin) 2.6 g/dL 1.5-4.5 A/G ratio (test code = A/G ratio) 1.5 >1.0 bilirubin,total (test code = 0.4 mg/dL 0.0-1.2 bilirubin,total) AST/SGOT (test code = AST/SGOT) 28 U/L 15-32 Alanine aminotransferase 25 U/L 0-33 [Enzymatic activity/volume] in Serum or Plasma (test code = 1742-6) Alkaline phosphatase [Enzymatic 69 U/L 35-105 activity/volume] in Serum or Plasma (test code = 6768-6) NPI:[id number] [Moles/volume] in [id number] 00:00:00 Test Item Value Reference Range Interpretation Comments magnesium level (test code = 2.0 mg/dL 1.6-2.6 magnesium level) NPI:[id number], [id number] 09:35:00To investigate for possible anastomotic stricture and small/large bowel crohn's diseaseUnlisted Reason for Exam - Click Yes and Enter Reason Below->NoIs this for enterography?- >YesWill this procedure require oral contrast?->Yes [facility] 1970 Sex: FFINAL REPORT CT, ABDOMEN \\T\\ PELVIS, WITH IV CONTRAST HISTORY: Crohn's exacerbation (Age > 17y) COMPARISON: Outside CT 07/04/2021 TECHNIQUE: CT of the abdomen and pelvis WITH intravenous contrast. The examination was performed according to the departmental dose-optimization program, which includes automated exposure control, adjustment of the mA and/or kV according to patient size and/or use of iterative reconstruction technique. FINDINGS: Lower thorax: Unremarkable.Liver: A segment 2 hypodensity too small to characterize is unchanged dating back to 11/07/2018, probably a cyst.Gallbladder and bile ducts: Surgically absent gallbladder with very mildly dilated bile ducts, similar to slightly less conspicuous compared to 07/04/2021, likely related to postcholec ystectomy state.Spleen: Unremarkable.Pancreas: Unremarkable.Adrenals: UnremarkableKidneys and ureters: A 3.6 cm mildly proteinaceous/hemorrhagic cyst on the left is unchanged dating back to 11/07/2018, has a thin peripheral calcification, no follow-up needed. A 1.5 cm simple cyst on the right and a 1.2 simple cyst on the left. No hydronephrosis bilaterally.Bowel: Partial colectomy with ileocolonic anastomosis in the right mid abdomen. Liquid contents throughout the large bowel without any bowel wallthickening or evidence for bowel obstruction.Bladder: Unremarkable.Reproductive organs: Surgically absent uterus. No adnexal masses.Lymph nodes: Unremarkable.Peritoneum: Trace pelvic free fluid, likelyreactive or physiologic.Vessels: Unremarkable.Abdominal wall: A pain pump implanted in the right lower quadrant anterior abdominal wall with lead terminating in the lower thoracic spinal canal. Postsurgical changes in the anterior abdominal wall.Bones: Unchanged mild L2 compression deformity. Multilevel mild degenerative changes in the visible spine. IMPRESSION: 1.Liquid contents throughout the largebowel suggesting a mild colitis without any bowel wall thickening or evidence for bowel obstruction 2. Additional chronic and incidental findings as above. Signed: Leon Ventura Verified Date/Time: 07/07/2021 09:35:01 Reading Location: [facility] Diagnostic Imaging Reading Room - [place] [address] [id number] 05:46:30 Test Item Value Reference Range Interpretation Comments MAGNESIUM (BEAKER) (test code = 1.9 mg/dL 1.6-2.6 627) Senior Policy Associate ID - WILBUR MBASIC METABOLIC [id number] 05:46:29 Test Item Value Reference Range Interpretation Comments [...] S NOT APPLICABLE FOR DIALYSIS PATIEN TS. Senior Policy Associate ID - WILBUR MCBC W/PLT COUNT & AUTO [id number] 05:10:15 Test Item Value Reference Range Interpretation Comments WHITE BLOOD CELL COUNT (BEAKER) 4.0 K/ L 3.5-10.5 (test code = 775) RED BLOOD CELL COUNT (BEAKER) 3.69 M/ L 3.93-5.22 L (test code = 761) HEMOGLOBIN (BEAKER) (test code = 11.5 GM/DL 11.2-15.7 410) HEMATOCRIT (BEAKER) (test code = 38.0 % 34.1-44.9 411) MEAN CORPUSCULAR VOLUME (BEAKER) 103.0 fL 79.4-94.8 H (test code = 753) MEAN CORPUSCULAR HEMOGLOBIN 31.2 pg 25.6-32.2 (BEAKER) (test code = 751) MEAN CORPUSCULAR HEMOGLOBIN CONC 30.3 GM/DL 32.2-35.5 L (BEAKER) (test code = 752) RED CELL DISTRIBUTION WIDTH 13.1 % 11.7-14.4 (BEAKER) (test code = 412) PLATELET COUNT (BEAKER) (test 201 K/CU MM 150-450 code = 756) MEAN PLATELET VOLUME (BEAKER) 8.1 fL 9.4-12.3 L (test code = 754) NUCLEATED RED BLOOD CELLS 0 /100 WBC 0-0 (BEAKER) (test code = 413) NEUTROPHILS RELATIVE PERCENT 38 % (BEAKER) (test code = 429) LYMPHOCYTES RELATIVE PERCENT 49 % (BEAKER) (test code = 430) MONOCYTES RELATIVE PERCENT 8 % (BEAKER) (test code = 431) EOSINOPHILS RELATIVE PERCENT 5 % (BEAKER) (test code = 432) BASOPHILS RELATIVE PERCENT 0 % (BEAKER) (test code = 437) NEUTROPHILS ABSOLUTE COUNT 1.54 K/ L 1.56-6.13 L (BEAKER) (test code = 670) LYMPHOCYTES ABSOLUTE COUNT 1.96 K/ L 1.18-3.74 (BEAKER) (test code = 414) MONOCYTES ABSOLUTE COUNT (BEAKER) 0.30 K/ L 0.24-0.36 (test code = 415) EOSINOPHILS ABSOLUTE COUNT 0.21 K/ L 0.04-0.36 (BEAKER) (test code = 416) BASOPHILS ABSOLUTE COUNT (BEAKER) 0.01 K/ L 0.01-0.08 (test code = 417) IMMATURE GRANULOCYTES-RELATIVE 0 % 0-1 PERCENT (BEAKER) (test code = 2801) FECAL [id number] 20:11:55 Test Item Value Reference Range Interpretation Comments FECAL LEUKOCYTES No fecal leukocytes No fecal leukocytes (BEAKER) (test code = seen seen 992) GI PATHOGEN PROFILE BY [id number] 14:51:41 Test Item Value Reference Range Interpretation Comments [...] Not detected BY PCR (test code = 2079776) ENTEROTOXIGENIC E. COLI (ETEC) Not detected Not detected LT/ST BY PCR (test code = 7351256) SHIGA-LIKE TOXIN-PRODUCING E. Not detected Not detected COLI (STEC) STX1/STX2 (test code = 5891088) E. COLI O157 (PCR) (test code = 5268085) SHIGELLA/ENTEROINVASIVE E. COLI Not detected Not detected (EIEC) BY PCR (test code = 1364360) CRYPTOSPORIDIUM (PCR) (test code Not detected Not detected = 20151208) CYCLOSPORA CAYETANENSIS (PCR) Not detected Not detected (test code = 8796379) ENTAMOEBA HISTOLYTICA (PCR) Not detected Not detected [...] sample was tested at the [facility] using the [employer] Media[employer] Gastrointestinal Panel. It is FDA cleared and has been verified and approved by the [facility] for clinical use. This laboratory is CLIA-certified and College ofAmerican Pathologists (CAP)-accredited to perform high complexity testing.C. DIFFICILE GDH [id number] 13:13:04 Test Item Value Reference Range Interpretation Comments CDT TOXIN (test code Negative Negative = [id number]) CDT GDH ANTIGEN Positive Negative A C. difficile present but (test code = toxin not detec francine. [id number]) Indicates colon ization with non-toxige barber strain or level of tox in below detectable leve ls. No need for enteri c isolation. Darryn atment is rarely needed ( only when strong clinical suspicion for Clostridium difficile infection) Testing performed by iDoc24re Rapid Cassette Assay. For GDH, published sensitivity of the assay is 98.7% compared to cytotoxicity testing. For Toxin AB, published sensitivity is 87.8% and specificity 99.4% compared to cytotoxicity testing.Verification of kit performance was done by the [facility] prior to clinical use.[id number] 05:29:55 Test Item Value Reference Range Interpretation Comments MAGNESIUM (BEAKER) (test code = 2.1 mg/dL 1.6-2.6 627) Senior Policy Associate ID Rose REED WC-REACTIVE [id number] 05:29:55 Test Item Value Reference Range Interpretation Comments C-REACTIVE PROTEIN (BEAKER) (test 0.49 mg/dL 0.00-0.50 code = 676) Senior Policy Associate ID - DEREK WBASIC METABOLIC [id number] 05:29:54 Test Item Value Reference Range Interpretation Comments SODIUM (BEAKER) 143 meq/L 136-145 (test code = 381) POTASSIUM (BEAKER) 4.0 meq/L 3.5-5.1 (test code = 379) CHLORIDE (BEAKER) 109 meq/L 98-107 H (test code = 382) CO2 (BEAKER) (test 29 meq/L 22-29 code = 355) BLOOD UREA NITROGEN 8 mg/dL 7-21 (BEAKER) (test code = 354) CREATININE (BEAKER) 0.73 mg/dL 0.57-1.25 (test code = 358) GLUCOSE RANDOM 93 mg/dL 70-105 (BEAKER) (test code = 652) CALCIUM (BEAKER) 8.2 mg/dL 8.4-10.2 L (test code = 697) EGFR (BEAKER) (test 85 mL/min/1.73 ESTIMA FRANCINE GFR IS code = 1092) sq m NOT ACCURATE CREATININE CLEARANCE IN PREDICTING GLOMERULAR FILTRATION RATE . ESTIMATED GFR I S NOT APPLICABLE FOR DIALYSIS PATIEN TS. Senior Policy Associate ID Rose REED WCBC W/PLT COUNT & AUTO [id number] 04:52:13 Test Item Value Reference Range Interpretation Comments WHITE BLOOD CELL COUNT (BEAKER) 4.4 K/ L 3.5-10.5 (test code = 775) RED BLOOD CELL COUNT (BEAKER) 3.65 M/ L 3.93-5.22 L (test code = 761) HEMOGLOBIN (BEAKER) (test code = 11.5 GM/DL 11.2-15.7 410) HEMATOCRIT (BEAKER) (test code = 37.3 % 34.1-44.9 411) MEAN CORPUSCULAR VOLUME (BEAKER) 102.2 fL 79.4-94.8 H (test code = 753) MEAN CORPUSCULAR HEMOGLOBIN 31.5 pg 25.6-32.2 (BEAKER) (test code = 751) MEAN CORPUSCULAR HEMOGLOBIN CONC 30.8 GM/DL 32.2-35.5 L (BEAKER) (test code = 752) RED CELL DISTRIBUTION WIDTH 13.5 % 11.7-14.4 (BEAKER) (test code = 412) PLATELET COUNT (BEAKER) (test 196 K/CU MM 150-450 code = 756) MEAN PLATELET VOLUME (BEAKER) 8.1 fL 9.4-12.3 L (test code = 754) NUCLEATED RED BLOOD CELLS 0 /100 WBC 0-0 (BEAKER) (test code = 413) NEUTROPHILS RELATIVE PERCENT 34 % (BEAKER) (test code = 429) LYMPHOCYTES RELATIVE PERCENT 50 % (BEAKER) (test code = 430) MONOCYTES RELATIVE PERCENT 9 % (BEAKER) (test code = 431) EOSINOPHILS RELATIVE PERCENT 6 % (BEAKER) (test code = 432) BASOPHILS RELATIVE PERCENT 1 % (BEAKER) (test code = 437) NEUTROPHILS ABSOLUTE COUNT 1.48 K/ L 1.56-6.13 L (BEAKER) (test code = 670) LYMPHOCYTES ABSOLUTE COUNT 2.22 K/ L 1.18-3.74 (BEAKER) (test code = 414) MONOCYTES ABSOLUTE COUNT (BEAKER) 0.41 K/ L 0.24-0.36 H (test code = 415) EOSINOPHILS ABSOLUTE COUNT 0.27 K/ L 0.04-0.36 (BEAKER) (test code = 416) BASOPHILS ABSOLUTE COUNT (BEAKER) 0.02 K/ L 0.01-0.08 (test code = 417) IMMATURE GRANULOCYTES-RELATIVE 0 % 0-1 PERCENT (BEAKER) (test code = 2801) SARS-COV2/RT-PCR ([facility])2021-07-05 20:54:21 Test Item Value Reference Range Interpretation Comments SARS-COV2/RT-PCR (test code = Negative Negative [id number]) Negative result for this test determines that SARS-CoV-2 RNA was not present in the specimen above the Limit of Detection (LOD). However, Negative results do not preclude SARS-CoV-2 infection and should not be used as the sole basis for treatment or patient management decisions. Negative results must be combined with clinical observations, patient history, and epidemiological information. A false negative result may occur if a specimen is improperly collected, transported, or handled. A false negative result should be considered if patient's recent exposures or clinical presentation indicate that COVID-19 (SARS-CoV-2) is likely and diagnostic tests for other causes of illness are negative. Re-testing should be considered in cases of suspected false negatives.The limit of detection for this assay is 100 copies/mL.This SARS-CoV-2 test is a real-time RT_PCR test intended for the qualitative detection of nucleic acid from SARS-CoV-2 in a nasopharyngeal swab specimen collected from individuals suspected of COVID-19 by their healthcare provider.This test has not been Food and Drug Administration (FDA) cleared or approved. This is a modified version of an approved Emergency Use Authorization (EUA) and is in the process of review by the FDA. Once authorized by the FDA, the issued EUA will be effective until the declaration that circumstances exist justifying the authorization of the emergency use of in vitro diagnostic tests for detection and/or diagnosis of COVID-19 is terminated under Section 564(b)(2) of the Act or the EUA is revoked under Section 564(g) of the Act.Testing was performedusing the Kwong SARS-CoV-2 assay.Fact Sheet for Healthcare Providers:https://www.molecular.kwong/gregg/RT SARS-CoV-2 HCP Fact Sheet 51- 566698.pdfFact Sheet for Healthcare Patients:https://www.molecular.kwong/gregg/RT SARS-CoV-2 Patient Fact Sheet EN 51-954591O0.[id number] 15:30:09 Test Item Value Reference Range Interpretation Comments MAGNESIUM (BEAKER) (test code = 2.2 mg/dL 1.6-2.6 627) Senior Policy Associate ID - ADMINBASIC METABOLIC [id number] 15:30:08 Test Item Value Reference Range Interpretation Comments SODIUM (BEAKER) 139 meq/L 136-145 (test code = 381) POTASSIUM (BEAKER) 4.1 meq/L 3.5-5.1 (test code = 379) CHLORIDE (BEAKER) 105 meq/L 98-107 (test code = 382) CO2 (BEAKER) (test 27 meq/L 22-29 code = 355) BLOOD UREA NITROGEN 11 mg/dL 7-21 (BEAKER) (test code = 354) CREATININE (BEAKER) 0.72 mg/dL 0.57-1.25 (test code = 358) GLUCOSE RANDOM 86 mg/dL 70-105 (BEAKER) (test code = 652) CALCIUM (BEAKER) 8.3 mg/dL 8.4-10.2 L (test code = 697) EGFR (BEAKER) (test 86 mL/min/1.73 ESTIMA FRANCINE GFR IS code = 1092) sq m NOT ACCURATE CREATININE CLEARANCE IN PREDICTING GLOMERULAR FILTRATION RATE . ESTIMATED GFR I S NOT APPLICABLE FOR DIALYSIS PATIEN TS. Senior Policy Associate ID - ADMINCBC W/PLT COUNT & AUTO [id number] 15:16:06 Test Item Value Reference Range Interpretation Comments WHITE BLOOD CELL COUNT (BEAKER) 5.9 K/ L 3.5-10.5 (test code = 775) RED BLOOD CELL COUNT (BEAKER) 3.67 M/ L 3.93-5.22 L (test code = 761) HEMOGLOBIN (BEAKER) (test code = 11.6 GM/DL 11.2-15.7 410) HEMATOCRIT (BEAKER) (test code = 37.3 % 34.1-44.9 411) MEAN CORPUSCULAR VOLUME (BEAKER) 101.6 fL 79.4-94.8 H (test code = 753) MEAN CORPUSCULAR HEMOGLOBIN 31.6 pg 25.6-32.2 (BEAKER) (test code = 751) MEAN CORPUSCULAR HEMOGLOBIN CONC 31.1 GM/DL 32.2-35.5 L (BEAKER) (test code = 752) RED CELL DISTRIBUTION WIDTH 13.6 % 11.7-14.4 (BEAKER) (test code = 412) PLATELET COUNT (BEAKER) (test 203 K/CU MM 150-450 code = 756) MEAN PLATELET VOLUME (BEAKER) 8.5 fL 9.4-12.3 L (test code = 754) NUCLEATED RED BLOOD CELLS 0 /100 WBC 0-0 (BEAKER) (test code = 413) NEUTROPHILS RELATIVE PERCENT 48 % (BEAKER) (test code = 429) LYMPHOCYTES RELATIVE PERCENT 40 % (BEAKER) (test code = 430) MONOCYTES RELATIVE PERCENT 8 % (BEAKER) (test code = 431) EOSINOPHILS RELATIVE PERCENT 3 % (BEAKER) (test code = 432) BASOPHILS RELATIVE PERCENT 0 % (BEAKER) (test code = 437) NEUTROPHILS ABSOLUTE COUNT 2.86 K/ L 1.56-6.13 (BEAKER) (test code = 670) LYMPHOCYTES ABSOLUTE COUNT 2.37 K/ L 1.18-3.74 (BEAKER) (test code = 414) MONOCYTES ABSOLUTE COUNT (BEAKER) 0.45 K/ L 0.24-0.36 H (test code = 415) EOSINOPHILS ABSOLUTE COUNT 0.20 K/ L 0.04-0.36 (BEAKER) (test code = 416) BASOPHILS ABSOLUTE COUNT (BEAKER) 0.02 K/ L 0.01-0.08 (test code = 417) IMMATURE GRANULOCYTES-RELATIVE 0 % 0-1 PERCENT (BEAKER) (test code = 2801) TISSUE [id number] 13:54:10Surgical Pathology Report Case: [id number] Authorizing Provider: April Mock MD Collected: 07/02/2021 12:46 PM Ordering Location: [facility] Received: 07/02/2021 03:47 PM SERVICES Pathologist: Ly Cortez MD Specimen: Biopsy, Terminal Ileum, yared terminal ileum bx for Crohn's disease activity A. TERMINAL ILEUM, BIOPSY: - ILEAL MUCOSA WITH PRESERVED VILLOUS ARCHITECTURE AND FRAGMENT OF COLONIC MUCOSA - NO SIGNIFICANT HISTOPATHOLOGICAL CHANGE - NO ACTIVE INFLAMMATION, FEATURES OF CHRONIC COLITIS OR GRANULOMA NOTED SJ/pl Signing Pathologist Direct Phone Line: [phone] signed by Ly Cortez MD on 07/05/2021 at 1:54 PMEndoscopic report reviewed. Negative for viral cytopathiceffects or dysplasia. [address]243 k1Bkeri's disease of both small and large intestine without complicationA. Biopsy, terminal ileum, neoterminal ileumA. Received in formalin labeled with the patient's name, medical record number and "terminal ileum BX" and consists of pieces of rodriguez-pink soft tissue measuring 0.3 x 0.3 x 0.2 cm and 0.4 x 0.3 x 0.2 cm. The specimen is submitted in toto in A1.[facility], [facility] of [facility], [address] [place] [address], [id number] Palma [facility], Department of Pathology, [address] [place] [address], [facility]qzdumLa Palma [facility], Department of Pathology, [address] [place] [address], XPXJ-CoV-2 (COVID-19) RNA [Presence] in Respiratory specimen by JULISSA with probe detection 2021-06-29 00:00:00 Test Item Value Reference Range Interpretation Comments SARS-CoV-2 (COVID-19) RNA not detected not detected [Presence] in Respiratory specimen by JULISAS with probe detection (test code = 26700-5) sars-cov-2, JULISSA 2 day tat (test performed code = sars-cov-2, JULISSA 2 day tat) NPI:[id number]-9 (COVID-19) RNA [Presence] in Respiratory specimen by JULISSA with probe [id number] 00:00:00 Test Item Value Reference Range Interpretation Comments SARS-CoV-2 (COVID-19) RNA not detected not detected [Presence] in Respiratory specimen by JULISSA with probe detection (test code = 22984-7) sars-cov-2, JULISSA 2 day tat (test performed code = sars-cov-2, JULISSA 2 day tat) NPI:[id number] W Auto Differential panel - [id number] 01:10:00 Test Item Value Reference Range Interpretation Comments white blood count (test code = 8.6 K/uL 4.0-11.5 white blood count) red blood count (test code = red 4.16 M/uL 3.80-5.20 blood count) hemoglobin (test code = 12.5 g/dL 10.5-15.7 hemoglobin) hematocrit (test code = 40.0 % 34.0-50.0 hematocrit) MCV [Entitic volume] (test code = 96.2 fL 86.0-100.0 80075-3) mean corpuscular hemoglobin (test 30.0 pg 26.2-33.4 [...] 44.4-80.1 leukocytes in Blood (test code = 05409-7) Immature granulocytes [#/volume] 0.03 K/uL 0.00-0.03 in Blood (test code = 88938-0) lymphocyte% (test code = 33.8 % 10.0-50.0 lymphocyte%) mono % (test code = mono %) 5.8 % 3.6-12.0 eos % (test code = eos %) 8.9 % 0.0-5.4 H Basophils/100 leukocytes in 0.6 % 0.1-1.2 Unspecified specimen (test code = 19122-6) Band form neutrophils [#/volume] 4.36 K/uL 1.56-6.13 in Blood (test code = 25002-5) Lymphocytes [#/volume] in 2.91 K/uL 1.18-3.74 Unspecified specimen by Automated count (test code = 38774-7) mono # (test code = mono #) 0.50 K/uL 0.24-0.86 eos # (test code = eos #) 0.77 K/uL 0.04-0.36 H basophil # (test code = basophil 0.05 K/uL 0.01-0.08 #) NRBC% (test code = NRBC%) 0 /100 WBC 0-0.2 NRBC# (test code = NRBC#) 0 K/uL NPI:[id number] metabolic 2000 panel - Serum or [id number] 01:10:00 Test Item Value Reference Range Interpretation [...] Serum or Plasma (test code = 6768-6) NPI:[id number] W Auto Differential panel - [id number] 01:10:00 Test Item Value Reference Range Interpretation Comments white blood count (test code = 8.6 K/uL 4.0-11.5 white blood count) red blood count (test code = red 4.16 M/uL 3.80-5.20 blood count) hemoglobin (test code = 12.5 g/dL 10.5-15.7 hemoglobin) hematocrit (test code = 40.0 % 34.0-50.0 hematocrit) MCV [Entitic volume] (test code = 96.2 fL 86.0-100.0 29130-2) mean corpuscular hemoglobin (test 30.0 pg 26.2-33.4 [...] 44.4-80.1 leukocytes in Blood (test code = 80005-5) Immature granulocytes [#/volume] 0.03 K/uL 0.00-0.03 in Blood (test code = 43987-1) lymphocyte% (test code = 33.8 % 10.0-50.0 lymphocyte%) mono % (test code = mono %) 5.8 % 3.6-12.0 eos % (test code = eos %) 8.9 % 0.0-5.4 H Basophils/100 leukocytes in 0.6 % 0.1-1.2 Specimen (test code = 45213-0) Band form neutrophils [#/volume] 4.36 K/uL 1.56-6.13 in Blood (test code = 20005-0) Lymphocytes [#/volume] in Specimen 2.91 K/uL 1.18-3.74 by Automated count (test code = 25751-5) mono # (test code = mono #) 0.50 K/uL 0.24-0.86 eos # (test code = eos #) 0.77 K/uL 0.04-0.36 H basophil # (test code = basophil 0.05 K/uL 0.01-0.08 #) NRBC% (test code = NRBC%) 0 /100 WBC 0-0.2 NRBC# (test code = NRBC#) 0 K/uL NPI:[id number] metabolic 2000 panel - Serum or [id number] 01:10:00 Test Item Value Reference Range Interpretation [...] Serum or Plasma (test code = 6768-6) NPI:[id number] and Rh [id number] 16:26:00 Test Item Value Reference Range Interpretation Comments ABO grouping (test code = 883-9) A Rh type (test code = 49085-9) POS [facility] [id number] 15:29:03 Test Item Value Reference Range Interpretation Comments POC glucose (test 78 mg/dL 65-99 Senior Policy Associate N kaitlyn: [place]ales code = 94406-1) ThelmaDevice ID: [id number] [facility] Pre/Post [id number] 22:21:44 Test Item Value Reference Range Interpretation Comments Ventricular rate (test code = 253) Atrial rate (test code = 255) AL interval (test code = 266) QRSD interval [...] ECG-No previous ECGs available-Electronica lly Signed By Christofer MOTLEY, Yash Gutierrez (2019) on 05/06/2021 4:21:39 PM [facility] CenterType and [id number] 19:32:00 Test Item Value Reference Range Interpretation Comments ABO grouping (test code = 883-9) A Rh type (test code = 68406-8) POS Antibody screen (gel) (test code = NEG 890-4) [facility]MR, EXTREMITY, LOWER, JOINT, WITHOUT IV CONTRAST, RIGHT 2021-05-04 09:55:00Unlisted Reason for Exam - Click Yes and Enter Reason Below- >YesUnlisted Reason for Exam->avascular necrosis [facility] 1970 [...] or cruciate ligament tear. Signed: Art Bermeo Verified Date/Time: 05/04/2021 09:55:28 Reading Location: [facility] Room [address] [place] [address] , NON-TUNNELED CATH/PICC >5 Y.O. WITH [id number] 13:44:00Reason for Exam:->[facility] iv [facility] 1970 Sex: FFINAL REPORT Right upper extremity PICC insertion. History: Need for long-term IV antibiotics. Notching Machine Operator: Dayne Gaines MD. Credit Reference Clerk: None. Modality: Sonography and fluoroscopy. Sedation: None. [...] needle into the right atrium. A 5 Uruguayan peel-away sheath was placed. The 5 [place]ayan double-lumen PICC line was measured and cut [...] is ready for immediate use. Signed: Dayne Gaines MDReport Verified Date/Time: 05/03/2021 13:44:35 Reading Location: [place] [address] Angio Body Reading Room -CoV-2 (COVID-19) RNA [Presence] in Respiratory specimen by JULISSA with probe [id number] 03:30:[id number] METABOLIC PANEL 2021-01-20 14:28:17 Test Item Value Reference Range Interpretation Comments GLUCOSE (test code = See_Comment [Autom ated message] The 2345-7) system which [employer] nerated this result tra nsmitted reference range [...] [Au tomated message] The 2160-0) system which [employer] nerated this result tra nsmitted reference range : 0.60 - 1.30 MG/DL. The reference range was not used to interpr et this result as normal/abnormal . EGFR AA (test code = See_Comment [Autom ated message] The 06079-9) system which [employer] nerated this result tra nsmitted reference range : >60 ML/MIN/1.73. Th e reference range was not used to interpr et this result as normal/abnormal . EGFR (test code = See_Comment [Automate d message] The 55997-9) system which ge nerated this result tra [...] code = See_Comment [Automa francine message] The 295-2) system which ge nerated this result tra nsmitted reference range : 133 - 146 MEQ/L. The reference range was not u sed to interpret this result as normal/abnormal . POTASSIUM (test code = See_Comment [Aut omated message] The 2822-3) system which ge nerated this result tra [...] code = See_Comment [Autom ated message] The 80555-6) system which ge nerated this result tra [...] code = See_Comment [Autom ated message] The 91800-4) system which ge nerated this result tra nsmitted reference range : 3.5 - 5.2 G/DL. The r eference range was not u sed to interpret this result as normal/abnormal . GLOBULINS, SERUM, TOTAL See_Comment [Au tomated message] The (test code = 48803-8) system which generated this result tra nsmitted reference range : 1.9 - 3.7 G/DL. The r eference range was not u sed to interpret this result as normal/abnormal . A/G RATIO (test code = See_Comment [Aut omated message] The 1758-0) system which ge nerated this result tra [...] Indic ated, All Testing Perform ed At: [facility], [address] [place] [address] Surgical Training Specialist: Tamika King [id number] [place]. [id number] [facility] [id number] 14:28:17 Test Item Value Reference Range Interpretation [...] code = See_Comment [Au tomated message] The 216-0) system which ge nerated this result tra nsmitted reference range : 0.60 - 1.30 MG/DL. The reference range was not used to interpr et this result as normal/abnormal . EGFR AA (test code = See_Comment [Autom ated message] The 13512-0) system which ge nerated this result tra nsmitted reference range : >60 ML/MIN/1.73. Th e reference range was not used to interpr et this result as normal/abnormal . EGFR (test code = See_Comment [Automate d message] The 73176-6) system which ge nerated this result tra [...] . SODIUM (test code = See_Comment [Automa fracnine message] The 295-2) system which ge nerated this result tra nsmitted reference range : 133 - 146 MEQ/L. The reference range was not u sed to interpret this result as normal/abnormal . POTASSIUM (test code = See_Comment [Aut omated message] The 282-3) system which ge nerated this result tra [...] code = See_Comment [Autom ated message] The 41193-8) system which ge nerated this result tra [...] code = See_Comment [Autom ated message] The 69968-0) system which ge nerated this result tra nsmitted reference range : 3.5 - 5.2 G/DL. The r eference range was not u sed to interpret this result as normal/abnormal . GLOBULINS, SERUM, TOTAL See_Comment [Au tomated message] The (test code = 61814-3) system which generated this result tra nsmitted [...] See_Comment [Auto mated message] The code = 1975-2) system which generated this result tra nsmitted reference range : <=1.2 MG/DL. The refe rence range was not u sed to interpret this result as normal/abnormal . ALKALINE PHOSPHATASE 83 U/L 40-125 (test code = 6768-6) AST (SGOT) (test code = 21 U/L 9-40 1920-8) ALT (SGPT) (test code = 17 U/L 5-40 Unless 1744-2) Otherwise Indic ated, All Testing Perform ed At: [facility], [address] [place] [address], [place] [address] Surgical Training Specialist: Tamika King [id number] [place] o. [id number] [facility] [id number] 12:27:01 Test Item Value Reference Range Interpretation Comments COLOR UA (test code = DARK YELLOW YELLOW-STRAW A 5778-6) CLARITY UA (test code CLEAR CLEAR = 5767-9) SPECIFIC GRAVITY UA (NOTE) 1.005-1.035 UNABLE (test code = 5811-5) TO DETE RMINE RESULT DUE TO INTERFERENCE FR OM URINE PIGMENT. WBC UA (test code = 0-5 See_Comment [Automa francine message] 46194-0) The system [employer] generated this result transmit francine reference range : 0 - 5 /HPF. The reference range was not used to interpret this result as normal/abnormal . RBC UA (test code = 3-5 See_Comment [Automa francine message] 92947-5) The system [employer] generated this result transmit francine reference range : 0 - 5 /HPF. The reference range was not used to interpret this result as normal/abnormal . EPITHELIAL CELLS (test 0-5 See_Comment [Aut omated message] code = 07426-5) The system [employer] generated this result transmit francine reference range : 0 - 10 /HPF. The reference range was not used to interpret this result as normal/abnormal . BACTERIA (test code = NONE SEEN NONE SEEN 90968-6) CRYSTALS (test code = PRESENT NONE SEEN A 5782-8) CALCIUM OX ALATE CRYSTALS HYALINE CASTS (test NONE SEEN NONE-TRACE Unless code = 62390-6) Otherwise In dicated, All Testing Performed At: Clinical [facility]ol [facility] [place], [address] [place] [address] Laboratory Dire ctor: aPrish espinosa M.D. CLI A Number [id number] [facility] [place]. [id number] Lab Interpretation Abnormal (test code = 74301-7) [facility] [id number] 12:27:01 Test Item Value Reference Range Interpretation Comments COLOR UA (test code = DARK YELLOW YELLOW-STRAW A 5778-6) CLARITY UA (test code CLEAR CLEAR = 5767-9) SPECIFIC GRAVITY UA (NOTE) 1.005-1.035 UNABLE (test code = 5811-5) TO DETE RMINE RESULT DUE TO INTERFERENCE FR OM URINE PIGMENT. WBC UA (test code = 0-5 See_Comment [Automa francine message] 48033-3) The system [employer] generated this result transmit francine reference range : 0 - 5 /HPF. The reference range was not used to interpret this result as normal/abnormal . RBC UA (test code = 3-5 See_Comment [Automa francine message] 06729-4) The system [employer] generated this result transmit francine reference range : 0 - 5 /HPF. The reference range was not used to interpret this result as normal/abnormal . EPITHELIAL CELLS (test 0-5 See_Comment [Aut omated message] code = 88571-4) The system [employer] [facility] generated this result transmit francine reference range : 0 - 10 /HPF. The reference range was not used to interpret this result as normal/abnormal . BACTERIA (test code = NONE SEEN NONE SEEN 90605-8) CRYSTALS (test code = PRESENT NONE SEEN A 5782-8) CALCIUM OX ALATE CRYSTALS HYALINE CASTS (test NONE SEEN NONE-TRACE Unless code = 38274-4) Otherwise In dicated, All Testing Performed At: [facility], [address] [place] [address] Laboratory Dire ctor: Parish espinosa M.D. CLI A Number [id number] [place] [id number] Lab Interpretation Abnormal (test code = 90727-8) [facility] W/AUTO DIFF WITH [id number] 09:34:22 Test Item Value Reference Range Interpretation Comments WHITE BLOOD CELL COUNT See_Comment [Aut omated message] (test code = 58913-8) The sy stem which generated this result transmitted ref erence range: 3.5 - 11 .0 K/UL. The reference r markus was not used to int erpret this result as normal/abnormal . RED BLOOD CELL COUNT See_Comment [Autom ated message] (test code = 44360-1) The sy stem which generated this result transmitted ref erence range: 3.80 - 5 .40 M/UL. The refer ence range was not u sed to interpret this result as normal/abnor mal. HEMOGLOBIN (test code = See_Comment [Au tomated message] 718-7) The system [employer] generated this result transmitted ref erence range: 11.5 - 1 5.5 G/DL. The refer ence range was not u sed to interpret this result as normal/abnor mal. HEMATOCRIT (test code = 42.0 % 34.0-45.0 71151-3) MEAN CORPUSCULAR VOLUME 94.8 fL 80.0-99.0 (test code = 29330-2) MEAN CORPUSCULAR 31.4 PG 25.0-33.0 HEMOGLOBIN (test code = 33793-5) MEAN CORPUSCULAR See_Comment [Automated message] HEMOGLOBIN CONC (test The sy stem which code = 67213-6) generated th is result transmitted ref erence range: 31 - 36 G/DL. The reference r markus was not used to int erpret this result as normal/abnormal . RED CELL DISTRIBUTION 11.8 % 11.5-15.0 WIDTH (test code = 88562-9) NEUTROPHILS % (test 66.2 % 40.0-75.0 code = 00776-5) LYMPHOCYTES % (test 25.8 % 20.0-45.0 code = 68601-3) MONOCYTES % (test code 5.6 % 4.0-12.0 = 67466-4) EOSINOPHILS % (test 1.9 % 0.0-7.0 code = 17952-1) BASOPHILS % (test code 0.3 % 0.0-2.0 = 16061-5) IMMATURE GRANULOCYTES 0.2 % 0.0-1.0 (test code = 36574-0) NUCLEATED RBC'S See_Comment Unl ess MYELOPEROX STAIN (test Other cuevas Indicated, code = 56127-0) All Testing Performed At: [facility], [address] [place] [address] Laboratory Dire ctor: Parish espinosa M.D. CLIA Numb er [id number] [place]. [id number] [Auto mated message] The sy stem which generated this result transmit francine reference range : 0.00 - 0.11 K/UL. The reference range was not used to interpr et this result as normal/abnormal . PLATELET COUNT (test See_Comment [Autom ated message] code = 46735-7) The system w [facility] generated this result transmitted ref erence range: 130 - 40 0 K/UL. The reference r markus was not used to int erpret this result as normal/abnormal . NEUTROPHILS ABSOLUTE See_Comment [Autom ated message] COUNT (test code = The syste m which 32420-8) generated this result transmitted ref erence range: 1.50 - 7 .50 K/UL. The refer ence range was not u sed to interpret this result as normal/abnor mal. LYMPHOCYTES ABSOLUTE See_Comment [Autom ated message] COUNT (test code = The syste m which 86851-3) generated this result transmitted ref erence range: 1.00 - 4 .00 K/UL. The refer ence range was not u sed to interpret this result as normal/abnor mal. MONOCYTES ABSOLUTE See_Comment [Automat ed message] COUNT (test code = The syste m which 36369-8) generated this result transmitted ref erence range: 0.20 - 1 .00 K/UL. The refer ence range was not u sed to interpret this result as normal/abnor mal. BASOPHILS ABSOLUTE See_Comment [Automat ed message] COUNT (test code = The syste m which 72836-5) generated this result transmitted ref erence range: [...] to interpret this result as normal/abnor mal. [facility] W/AUTO DIFF WITH [id number] 09:34:22 Test Item Value Reference Range Interpretation Comments WHITE BLOOD CELL COUNT See_Comment [Aut omated message] (test code = 54480-7) The sy stem which generated this result transmitted ref erence range: 3.5 - 11 .0 K/UL. The reference r markus was not used to int erpret this result as normal/abnormal . RED BLOOD CELL COUNT See_Comment [Autom ated message] (test code = 62986-3) The sy stem which generated this result [...] HEMATOCRIT (test code = 42.0 % 34.0-45.0 82291-3) MEAN CORPUSCULAR VOLUME 94.8 fL 80.0-99.0 (test code = 76209-0) MEAN CORPUSCULAR 31.4 PG 25.0-33.0 HEMOGLOBIN (test code = 70906-6) MEAN CORPUSCULAR See_Comment [Automated message] HEMOGLOBIN CONC (test The sy stem which code = 62877-1) generated th is result transmitted ref erence range: 31 - 36 G/DL. The reference r markus was not used to int erpret this result as normal/abnormal . RED CELL DISTRIBUTION 11.8 % 11.5-15.0 WIDTH (test code = 66830-8) NEUTROPHILS % (test 66.2 % 40.0-75.0 code = 23698-3) LYMPHOCYTES % (test 25.8 % 20.0-45.0 code = 64703-5) MONOCYTES % (test code 5.6 % 4.0-12.0 = 64100-9) EOSINOPHILS % (test 1.9 % 0.0-7.0 code = 05188-8) BASOPHILS % (test code 0.3 % 0.0-2.0 = 20946-8) IMMATURE GRANULOCYTES 0.2 % 0.0-1.0 (test code = 23213-1) NUCLEATED RBC'S See_Comment Unl ess MYELOPEROX STAIN (test Other cuevas Indicated, code = 53268-0) All Testing Performed At: [facility], [address] [place] [address] Laboratory Dire ctor: Parish espinosa M.D. CLIA Numb er [id number] [place]reditation [place] o. [id number] [Auto mated message] The sy stem which generated this result transmit francine reference range : 0.00 - 0.11 K/UL. The reference range was not used to interpr et this result as normal/abnormal . PLATELET COUNT (test See_Comment [Autom ated message] code = 80660-6) The system w [facility] generated this result transmitted ref erence range: 130 - 40 0 K/UL. The reference r markus was not used to int erpret this result as normal/abnormal . NEUTROPHILS ABSOLUTE See_Comment [Autom ated message] COUNT (test code = The syste m which 83104-9) generated this result transmitted ref erence range: 1.50 - 7 .50 K/UL. The refer ence range was not u sed to interpret this result as normal/abnor mal. LYMPHOCYTES ABSOLUTE See_Comment [Autom ated message] COUNT (test code = The syste m which 09367-7) generated this result transmitted ref erence range: 1.00 - 4 .00 K/UL. The refer ence range was not u sed to interpret this result as normal/abnor mal. MONOCYTES ABSOLUTE See_Comment [Automat ed message] COUNT (test code = The syste m which 35674-5) generated this result transmitted ref erence range: 0.20 - 1 .00 K/UL. The refer ence range was not u sed to interpret this result as normal/abnor mal. BASOPHILS ABSOLUTE See_Comment [Automat ed message] COUNT (test code = The syste m which 61823-5) generated this result transmitted ref erence range: [...] to interpret this result as normal/abnor mal. [facility] Urine by Baepwcw7089-32-65 12:05:00Bacteria Ur CultNPI:[id number] sensitivity testing, isolate 2020-12-31 12:05:00 Test Item Value Reference Range Interpretation [...] Minimum inhibitory concentration (VIVIENNE) (test code = 42228-8) cefTAZidime [Susceptibility] by <=2 Minimum inhibitory concentration (VIVIENNE) (test code = 133-9) cefTRIAXone [Susceptibility] by <=1 Minimum inhibitory concentration (VIVIENNE) (test code = 141-2) Ciprofloxacin [Susceptibility] by >2 Minimum inhibitory concentration (VIVIENNE) (test code = 185-9) Ampicillin+Sulbactam =16/8 [Susceptibility] by Minimum inhibitory concentration (VIVIENNE) (test code = 32-3) Ertapenem [Susceptibility] by <=0.25 Minimum inhibitory concentration (VIVIENNE) (test code = 95777-4) Aztreonam [Susceptibility] by <=2 Minimum inhibitory concentration (VIVIENNE) (test code = 44-8) Cefepime [Susceptibility] by <=1 Minimum inhibitory concentration (VIVIENNE) (test code = 6644-9) Meropenem [Susceptibility] by <=0.5 Minimum inhibitory concentration (VIVIENNE) (test code = 6652-2) Moxifloxacin [Susceptibility] by >4 Minimum inhibitory concentration (VIVIENNE) (test code = 53664-7) Amikacin [Susceptibility] by <=8 Minimum inhibitory concentration (VIVIENNE) (test code = 12-5) Piperacillin+Tazobactam =64/4 [Susceptibility] by Minimum inhibitory concentration (VIVIENNE) (test code = 412-7) Ceftaroline [Susceptibility] by 0.5 ug/mL Minimum inhibitory concentration (VIVIENNE) (test code = 92933-7) Tigecycline [Susceptibility] by <=1 Minimum inhibitory concentration (VIVIENNE) (test code = 41835-6) NPI:[id number] macro (dipstick) panel - [id number] 14:46:00 Test Item Value Reference Range Interpretation Comments Leukocytes (test code = Leukocytes) Large Nitrite (test code = Nitrite) positive Urobilinogen (test code = 8 Urobilinogen) Protein (test code = Protein) 100 pH (test code = pH) 7.0 Blood (test code = Blood) Negative Specific [place] (test code = 1.020 Specific [place]) Ketone (test code = Ketone) Small Bilirubin (test code = Bilirubin) Moderate Glucose (test code = Glucose) 250 Appearance (test code = Appearance) Turbid Color (test code = Color) Red NPI:[id number] identified in Urine by Wecwcmc8985-52-33 06:29:00Bacteria Ur CultNPI:[id number] sensitivity testing, cbmpdyu5785-73-68 06:29:00 Test Item Value Reference Range Interpretation [...] Minimum inhibitory concentration (VIVIENNE) (test code = 68366-8) Ciprofloxacin [Susceptibility] by <1 Minimum inhibitory concentration (VIVIENNE) (test code = 185-9) Linezolid [Susceptibility] by Minimum <2 inhibitory concentration (VIVIENNE) (test code = 80470-1) DAPTOmycin [Susceptibility] by <1 Minimum inhibitory concentration (VIVIENNE) (test code = 08619-2) NPI:[id number] macro (dipstick) panel - Cqktl2740-18-64 15:20:00 Test Item Value Reference Range Interpretation Comments Leukocytes (test code = Leukocytes) Negative Nitrite (test code = Nitrite) positive Urobilinogen (test code = 1 Urobilinogen) Protein (test code = Protein) Trace pH (test code = pH) 7.0 Blood (test code = Blood) Negative Specific [place] (test code = 1.015 Specific [place]) Ketone (test code = Ketone) Negative Bilirubin (test code = Bilirubin) Small Glucose (test code = Glucose) 100 Appearance (test code = Appearance) Cloudy Color (test code = Color) Yellow NPI:[id number] macro (dipstick) panel - [id number] 12:11:00 Test Item Value Reference Range Interpretation Comments Leukocytes (test code = Leukocytes) Large Nitrite (test code = Nitrite) positive Urobilinogen (test code = 2 Urobilinogen) Protein (test code = Protein) 30 pH (test code = pH) 6.0 Blood (test code = Blood) Negative Specific [place] (test code = 1.010 Specific [place]) Ketone (test code = Ketone) Trace Bilirubin (test code = Bilirubin) Small Glucose (test code = Glucose) 100 Appearance (test code = Appearance) Cloudy Color (test code = Color) [place] NPI:[id number] macro (dipstick) panel - [id number] 12:11:00 Test Item Value Reference Range Interpretation Comments Leukocytes (test code = Leukocytes) Large Nitrite (test code = Nitrite) positive Urobilinogen (test code = 2 Urobilinogen) Protein (test code = Protein) 30 pH (test code = pH) 6.0 Blood (test code = Blood) Negative Specific [place] (test code = 1.010 Specific [place]) Ketone (test code = Ketone) Trace Bilirubin (test code = Bilirubin) Small Glucose (test code = Glucose) 100 Appearance (test code = Appearance) Cloudy Color (test code = Color) [place] NPI:[id number] macro (dipstick) panel - [id number] 12:11:00 Test Item Value Reference Range Interpretation Comments Leukocytes (test code = Leukocytes) Large Nitrite (test code = Nitrite) positive Urobilinogen (test code = 2 Urobilinogen) Protein (test code = Protein) 30 pH (test code = pH) 6.0 Blood (test code = Blood) Negative Specific [place] (test code = 1.010 Specific [place]) Ketone (test code = Ketone) Trace Bilirubin (test code = Bilirubin) Small Glucose (test code = Glucose) 100 Appearance (test code = Appearance) Cloudy Color (test code = Color) [place] NPI:[id number] identified in Urine by Loyzflh9324-04-84 10:44:00 Test Item Value Reference Range Interpretation Comments Bacteria identified in no growth at 2 days Urine by Culture (test code = 630-4) NPI:[id number], PELVIS, WITHOUT / WITH IV [id number] 10:43:00Please order enterography protocol to assess the small bowel for Crohn's diseaseMRI ENTEROGRAPHY (SMALL BOWEL EVALUATION)Unlisted Reason for Exam - Click Yes and Enter Reason Below->YesUnlisted Reason for Exam->Crohn's disease of both small and large intestine without complication (HCCode) (K50.80) [facility] 1970 [...] MDReport Verified Date/Time: 11/23/2020 10:43:40 Reading Location: [facility] Diagnostic Imaging Reading Room - [place] [address] MR, ABDOMEN, WITHOUT / WITH IV CONTRAST 2020-11-23 10:43:00Please order enterography protocol to assess the small bowel for Crohn's diseaseMRI ENTEROGRAPHY (SMALL BOWEL EVALUATION)Unlisted Reason for Exam - Click Yes and Enter Reason Below->YesUnlisted Reason for Exam- >Crohn's disease of both small and large intestine without complication (HCCode) (K50.80)[facility] 1970 Sex: FFINAL [...] MDReport Verified Date/Time: 11/23/2020 10:43:40 Reading Location: [facility] Diagnostic Imaging Reading Room - [place] [address] Urinalysis macro (dipstick) panel - Urine 2020-11-17 14:29:00 Test Item Value Reference Range Interpretation Comments Leukocytes (test code = Negative Leukocytes) Nitrite (test code = Nitrite) positive Urobilinogen (test code = .2 Urobilinogen) Protein (test code = Protein) Negative pH (test code = pH) 7.0 Blood (test code = Blood) Negative Specific [place] (test code = 1.025 Specific [place]) Ketone (test code = Ketone) Negative Bilirubin (test code = Bilirubin) Negative Glucose (test code = Glucose) Negative Appearance (test code = Cloudy Appearance) Color (test code = Color) Dark Yellow NPI:[id number] macro (dipstick) panel - [id number] 14:29:00 Test Item Value Reference Range Interpretation Comments Leukocytes (test code = Negative Leukocytes) Nitrite (test code = Nitrite) positive Urobilinogen (test code = .2 Urobilinogen) Protein (test code = Protein) Negative pH (test code = pH) 7.0 Blood (test code = Blood) Negative Specific [place] (test code = 1.025 Specific [place]) Ketone (test code = Ketone) Negative Bilirubin (test code = Bilirubin) Negative Glucose (test code = Glucose) Negative Appearance (test code = Cloudy Appearance) Color (test code = Color) Dark Yellow NPI:[id number] macro (dipstick) panel - [id number] 14:29:00 Test Item Value Reference Range Interpretation Comments Leukocytes (test code = Negative Leukocytes) Nitrite (test code = Nitrite) positive Urobilinogen (test code = .2 Urobilinogen) Protein (test code = Protein) Negative pH (test code = pH) 7.0 Blood (test code = Blood) Negative Specific [place] (test code = 1.025 Specific [place]) Ketone (test code = Ketone) Negative Bilirubin (test code = Bilirubin) Negative Glucose (test code = Glucose) Negative Appearance (test code = Cloudy Appearance) Color (test code = Color) Dark Yellow NPI:[id number] identified in Urine by Apbrgcc0407-54-01 12:21:00Bacteria Ur CultNPI:[id number] identified in Urine by Eowxgre5342-24-07 12:21:00 Bacteria Ur CultNPI:[id number] identified in Urine by Wxgnksw7781-01-28 12:21:00Bacteria Ur CultNPI:[id number] macro (dipstick) panel - Urine 2020-10-26 14:00:55 Test Item Value Reference Range Interpretation Comments Leukocytes (test code = Leukocytes) Negative Nitrite (test code = Nitrite) positive Urobilinogen (test code = .2 Urobilinogen) Protein (test code = Protein) 30 pH (test code = pH) 6.0 Blood (test code = Blood) Negative Specific [place] (test code = 1.020 Specific [place]) Ketone (test code = Ketone) Trace Bilirubin (test code = Bilirubin) Small Glucose (test code = Glucose) 100 Appearance (test code = Appearance) Turbid Color (test code = Color) [place] NPI:[id number] macro (dipstick) panel - [id number] 14:00:55 Test Item Value Reference Range Interpretation Comments Leukocytes (test code = Leukocytes) Negative Nitrite (test code = Nitrite) positive Urobilinogen (test code = .2 Urobilinogen) Protein (test code = Protein) 30 pH (test code = pH) 6.0 Blood (test code = Blood) Negative Specific [place] (test code = 1.020 Specific [place]) Ketone (test code = Ketone) Trace Bilirubin (test code = Bilirubin) Small Glucose (test code = Glucose) 100 Appearance (test code = Appearance) Turbid Color (test code = Color) [place] NPI:[id number] 10:40:00 Test Item Value Reference Range Interpretation Comments Coronavirus (COVID-19) Not Detected (08/03/20 JULISSA (test code = 5:40 AM) Coronavirus (COVID-19) JULISSA) [employer] [id number] 10:32:00 Test Item Value Reference Range Interpretation Comments quest collection (test code = quest quest collection) NPI:[id number] fzrlntilri1200-30-22 10:32:00 Test Item Value Reference Range Interpretation Comments quest collection (test code = quest quest collection) NPI:[id number] BANK [id number] 17:04:00 Test Item Value Reference Range Interpretation Comments ABO/Rh (test code = ABO/Rh) A POS [facility] [id number] 17:04:00 Test Item Value Reference Range Interpretation Comments Antibody Scrn (test Negative (05/11/20 code = Antibody Scrn) 11:04 AM) [facility]-CoV+SARS-CoV-2 (COVID-19) Ag [Presence] in Respiratory specimen by Rapid iweptrsbvbw8064-76-27 12:34:00 Test Item Value Reference Range Interpretation Comments SARS-CoV - 2 (test code = SARS-CoV - negative 2) NPI:[id number] macro (dipstick) panel - [id number] 11:41:00 Test Item Value Reference Range Interpretation Comments Leukocytes (test code = Leukocytes) Negative Nitrite (test code = Nitrite) negative Urobilinogen (test code = 1 Urobilinogen) Protein (test code = Protein) Negative pH (test code = pH) 7.0 Blood (test code = Blood) Negative Specific [place] (test code = 1.025 Specific [place]) Ketone (test code = Ketone) Negative Bilirubin (test code = Bilirubin) Small Glucose (test code = Glucose) Negative Appearance (test code = Appearance) Cloudy Color (test code = Color) Yellow NPI:[id number] macro (dipstick) panel - Owzxw3724-39-86 11:41:00 Test Item Value Reference Range Interpretation Comments Leukocytes (test code = Leukocytes) Negative Nitrite (test code = Nitrite) negative Urobilinogen (test code = 1 Urobilinogen) Protein (test code = Protein) Negative pH (test code = pH) 7.0 Blood (test code = Blood) Negative Specific [place] (test code = 1.025 Specific [place]) Ketone (test code = Ketone) Negative Bilirubin (test code = Bilirubin) Small Glucose (test code = Glucose) Negative Appearance (test code = Appearance) Cloudy Color (test code = Color) Yellow NPI:[id number] A1c [Mass/volume] in Kyjdk3335-73-68 11:30:00 Test Item Value Reference Range Interpretation Comments Hemoglobin A1c [Mass/volume] in Blood 5.8 % 4.0-6.0 (test code = 73225-7) NPI:[id number] metabolic 2000 panel - Serum or Sudvze3892-72-58 11:30:00 Test Item Value Reference Range Interpretation [...] Serum or Plasma (test code = 6768-6) NPI:[id number] [Moles/volume] in Unspecified sxxwjolv9728-28-90 11:30:00 Test Item Value Reference Range Interpretation Comments magnesium level (test code = 2.1 mg/dL 1.6-2.6 magnesium level) NPI:[id number] kinase [Enzymatic activity/volume] in Serum or Plasma 2020-05-04 11:30:00 Test Item Value Reference Range Interpretation Comments creatine kinase (test code = creatine 49 U/L 20-180 kinase) NPI:[id number]/NBD5362-71-83 11:30:00 Test Item Value Reference Range Interpretation Comments prothrombin time (test code = 9.9 seconds 10.3-12.3 L prothrombin time) INR in Blood by Coagulation assay 0.92 (test code = 93376-9) NPI:[id number] thromboplastin hylp2184-81-13 11:30:00 Test Item Value Reference Range Interpretation Comments INR in Blood by Coagulation 27.1 seconds 22.5-37.0 assay (test code = 33971-3) NPI:[id number] complete W Reflex Culture panel - Nupue6896-70-69 11:30:00 Test Item Value Reference Range Interpretation Comments Color of Urine by Auto (test dark yellow code = 30937-4) Appearance of Urine (test code clear clear = 5767-9) Glucose [Presence] in Urine by negative negative Automated test strip (test code = 30560-4) Bilirubin.total [Mass/volume] negative negative in Urine (test code = 1978-6) Ketones [Mass/volume] in Urine negative negative by Automated test strip (test code = 53311-7) Specific gravity of Urine by 1.025 1.003-1.030 Automated test strip (test code = 88397-0) blood urine (test code = blood negative negative urine) pH of Urine (test code = 7.500 5-9 2756-5) protein urine (UA) (test code = trace negative protein urine (UA)) Urobilinogen [Presence] in =2.0 0.2-1.0 H Urine (test code = 92639-7) Nitrite [Presence] in Urine by negative negative Test strip (test code = 5802-4) Leukocyte esterase [Presence] negative negative in Urine by Automated test strip (test code = 48099-1) Erythrocytes [#/volume] in =1-5 0-5 Urine by Automated count (test code = 798-9) Leukocytes [#/area] in Urine <1 0-5 sediment by Automated count (test code = 68334-2) Epithelial cells [Presence] in =6-10 0-5 Urine sediment by Light microscopy (test code = 06058-7) Bacteria identified in Urine by none detected none detect Culture (test code = 630-4) Casts [#/area] in Urine =2-5 none detect sediment by Automated count (test code = 31200-2) urine culture added? (test code no = urine culture added?) NPI:[id number] [Units/volume] in Serum or Gzigiu0044-76-41 11:30:00 Test Item Value Reference Range Interpretation Comments Thyrotropin [Units/volume] in 4.22 uIU/mL 0.36-3.74 H Serum or Plasma (test code = 3016-3) NPI:[id number] (T4) free [Mass/volume] in Serum or Dsycum6776-98-23 11:30:00 Test Item Value Reference Range Interpretation Comments free T4 (test code = free T4) 1.27 NG/dL 0.93-1.7 NPI:[id number] (T3) Free [Mass/volume] in Serum or Plasma 2020-05-04 11:30:00 Test Item Value Reference Range Interpretation Comments free T3 (test code = free T3) 2.89 pg/mL 2.0-4.4 NPI:[id number] W Auto Differential panel - Dulrx0724-97-55 11:30:00 Test Item Value Reference Range Interpretation Comments white blood count (test code = 5.9 K/uL 4.0-11.5 white blood count) red blood count (test code = red 4.02 M/uL 3.80-5.20 blood count) hemoglobin (test code = 12.8 g/dL 10.5-15.7 hemoglobin) hematocrit (test code = 40.4 % 34.0-50.0 hematocrit) MCV [Entitic volume] (test code = 100.5 fL 86-100 H 18456-1) mean corpuscular hemoglobin (test 31.8 pg 26.2-33.4 [...] 44.4-80.1 leukocytes in Blood (test code = 24836-2) Immature granulocytes [#/volume] 0.0 K/uL 0.0-0.03 in Blood (test code = 71076-4) lymphocyte% (test code = 35.9 % 10.0-50.0 lymphocyte%) mono % (test code = mono %) 4.7 % 3.6-12.0 eos % (test code = eos %) 2.2 % 0.0-5.4 Basophils/100 leukocytes in 0.5 % 0.1-1.2 Unspecified specimen (test code = 70850-7) Band form neutrophils [#/volume] 3.35 K/uL 1.56-6.13 in Blood (test code = 48015-9) Lymphocytes [#/volume] in 2.1 K/uL 1.18-3.74 Unspecified specimen by Automated count (test code = 90211-7) mono # (test code = mono #) 0.28 K/uL 0.24-0.86 eos # (test code = eos #) 0.13 K/uL 0.04-0.36 basophil # (test code = basophil 0.03 K/uL 0.01-0.08 #) NRBC% (test code = NRBC%) 0 /100 WBC 0-0.2 NRBC# (test code = NRBC#) 0 K/uL NPI:[id number] panel, method unspecified - Jogge9829-15-83 11:30:00 NeutrophilsBandLymphocyteAtypical LymphMonocyteEosinophilBasophilMetamyelocyteAbs Neutrophil Count (Man)Abs Lymph Count (Man)Abs Monocyte Count (Man)Abs Eosinophil Count (Man)Abs Basophil Count (Man)Platelet EstimateNPI:[id number] A1c/Hemoglobin.total in Blood 2020-05-04 11:30:00 Test Item Value Reference Range Interpretation Comments Hemoglobin A1c [Mass/volume] in Blood 5.8 % 4.0-6.0 (test code = 14774-0) NPI:[id number] metabolic 2000 panel - Serum or Lxizhx3264-76-26 11:30:00 Test Item Value Reference Range Interpretation [...] Serum or Plasma (test code = 6768-6) NPI:[id number] [Moles/volume] in Unspecified rvzxkrol0686-18-95 11:30:00 Test Item Value Reference Range Interpretation Comments magnesium level (test code = 2.1 mg/dL 1.6-2.6 magnesium level) NPI:[id number] kinase [Enzymatic activity/volume] in Serum or Plasma 2020-05-04 11:30:00 Test Item Value Reference Range Interpretation Comments creatine kinase (test code = creatine 49 U/L 20-180 kinase) NPI:[id number]/ASK9918-06-88 11:30:00 Test Item Value Reference Range Interpretation Comments prothrombin time (test code = 9.9 seconds 10.3-12.3 L prothrombin time) INR in Blood by Coagulation assay 0.92 (test code = 42158-8) NPI:[id number] and aPTT panel - Platelet poor plasma by Coagulation assay 2020-05-04 11:30:00 Test Item Value Reference Range Interpretation Comments INR in Blood by Coagulation 27.1 seconds 22.5-37.0 assay (test code = 32874-3) NPI:[id number] complete W Reflex Culture panel - Skktn2286-82-26 11:30:00 Test Item Value Reference Range Interpretation Comments Color of Urine by Auto (test dark yellow code = 35660-7) Appearance of Urine (test code clear clear = 5767-9) Glucose [Presence] in Urine by negative negative Automated test strip (test code = 14454-6) Bilirubin.total [Mass/volume] negative negative in Urine (test code = 1978-6) Ketones [Mass/volume] in Urine negative negative by Automated test strip (test code = 64664-5) Specific gravity of Urine by 1.025 1.003-1.030 Automated test strip (test code = 13682-8) blood urine (test code = blood negative negative urine) pH of Urine (test code = 7.500 5-9 2756-5) protein urine (UA) (test code = trace negative protein urine (UA)) Urobilinogen [Presence] in =2.0 0.2-1.0 H Urine (test code = 93697-8) Nitrite [Presence] in Urine by negative negative Test strip (test code = 5802-4) Leukocyte esterase [Presence] negative negative in Urine by Automated test strip (test code = 17168-6) Erythrocytes [#/volume] in =1-5 0-5 Urine by Automated count (test code = 798-9) Leukocytes [#/area] in Urine <1 0-5 sediment by Automated count (test code = 30667-7) Epithelial cells [Presence] in =6-10 0-5 Urine sediment by Light microscopy (test code = 63834-9) Bacteria identified in Urine by none detected none detect Culture (test code = 630-4) Casts [#/area] in Urine =2-5 none detect sediment by Automated count (test code = 17580-0) urine culture added? (test code no = urine culture added?) NPI:[id number] [Units/volume] in Serum or Ieyucl6681-60-69 11:30:00 Test Item Value Reference Range Interpretation Comments Thyrotropin [Units/volume] in 4.22 uIU/mL 0.36-3.74 H Serum or Plasma (test code = 3016-3) NPI:[id number] (T4) free [Mass/volume] in Serum or Ezltdt7973-96-14 11:30:00 Test Item Value Reference Range Interpretation Comments free T4 (test code = free T4) 1.27 NG/dL 0.93-1.7 NPI:[id number] (T3) Free [Mass/volume] in Serum or Plasma 2020-05-04 11:30:00 Test Item Value Reference Range Interpretation Comments free T3 (test code = free T3) 2.89 pg/mL 2.0-4.4 NPI:[id number] W Auto Differential panel - Bxjrt0796-15-25 11:30:00 Test Item Value Reference Range Interpretation Comments white blood count (test code = 5.9 K/uL 4.0-11.5 white blood count) red blood count (test code = red 4.02 M/uL 3.80-5.20 blood count) hemoglobin (test code = 12.8 g/dL 10.5-15.7 hemoglobin) hematocrit (test code = 40.4 % 34.0-50.0 hematocrit) MCV [Entitic volume] (test code = 100.5 fL 86-100 H 05898-3) mean corpuscular hemoglobin (test 31.8 pg 26.2-33.4 [...] 44.4-80.1 leukocytes in Blood (test code = 03926-3) Immature granulocytes [#/volume] 0.0 K/uL 0.0-0.03 in Blood (test code = 29152-0) lymphocyte% (test code = 35.9 % 10.0-50.0 lymphocyte%) mono % (test code = mono %) 4.7 % 3.6-12.0 eos % (test code = eos %) 2.2 % 0.0-5.4 Basophils/100 leukocytes in 0.5 % 0.1-1.2 Unspecified specimen (test code = 45560-9) Band form neutrophils [#/volume] 3.35 K/uL 1.56-6.13 in Blood (test code = 85892-0) Lymphocytes [#/volume] in 2.1 K/uL 1.18-3.74 Unspecified specimen by Automated count (test code = 79797-9) mono # (test code = mono #) 0.28 K/uL 0.24-0.86 eos # (test code = eos #) 0.13 K/uL 0.04-0.36 basophil # (test code = basophil 0.03 K/uL 0.01-0.08 #) NRBC% (test code = NRBC%) 0 /100 WBC 0-0.2 NRBC# (test code = NRBC#) 0 K/uL NPI:[id number] panel, method unspecified - Ryxps9325-09-84 11:30:00 NeutrophilsBandLymphocyteAtypical LymphMonocyteEosinophilBasophilMetamyelocyteAbs Neutrophil Count (Man)Abs Lymph Count (Man)Abs Monocyte Count (Man)Abs Eosinophil Count (Man)Abs Basophil Count (Man)Platelet EstimateNPI:[id number] macro (dipstick) panel - Urine 2020-04-02 14:27:39 Test Item Value Reference Range Interpretation Comments Leukocytes (test code = Leukocytes) Negative Nitrite (test code = Nitrite) negative Urobilinogen (test code = .2 Urobilinogen) Protein (test code = Protein) Negative pH (test code = pH) 7.0 Blood (test code = Blood) Negative Specific [place] (test code = 1.010 Specific [place]) Ketone (test code = Ketone) Negative Bilirubin (test code = Bilirubin) Negative Glucose (test code = Glucose) Negative Appearance (test code = Appearance) Clear Color (test code = Color) Yellow NPI:[id number] identified in Urine by Fwushsb4581-40-84 00:00:00 Test Item Value Reference Range Interpretation Comments Bacteria identified in Urine by comment Culture (test code = 630-4) NPI:[id number] [Units/volume] in Serum or Ncczzv9889-79-44 00:00:00 Test Item Value Reference Range Interpretation Comments Follitropin [Units/volume] in 0.5 mIU/mL Serum or Plasma (test code = 53641-8) NPI:[id number] (E2) [Mass/volume] in Serum or Umjqjm7368-79-01 00:00:00 Test Item Value Reference Range Interpretation Comments Estradiol (E2) [Mass/volume] in 47.3 pg/mL Serum or Plasma (test code = 2243-4) NPI:[id number] macro (dipstick) panel - Tipko1320-92-38 13:53:54 Test Item Value Reference Range Interpretation Comments Leukocytes (test code = Leukocytes) Negative Nitrite (test code = Nitrite) positive Urobilinogen (test code = .2 Urobilinogen) Protein (test code = Protein) Negative pH (test code = pH) 6.5 Blood (test code = Blood) Negative Specific [place] (test code = 1.020 Specific [place]) Ketone (test code = Ketone) Negative Bilirubin (test code = Bilirubin) Negative Glucose (test code = Glucose) Negative Appearance (test code = Appearance) Clear Color (test code = Color) Yellow NPI:[id number] macro (dipstick) panel - Vghem4053-32-30 13:53:54 Test Item Value Reference Range Interpretation Comments Leukocytes (test code = Leukocytes) Negative Nitrite (test code = Nitrite) positive Urobilinogen (test code = .2 Urobilinogen) Protein (test code = Protein) Negative pH (test code = pH) 6.5 Blood (test code = Blood) Negative Specific [place] (test code = 1.020 Specific [place]) Ketone (test code = Ketone) Negative Bilirubin (test code = Bilirubin) Negative Glucose (test code = Glucose) Negative Appearance (test code = Appearance) Clear Color (test code = Color) Yellow NPI:[id number] TRVW4206-30-03 12:49:00Surgical Pathology Report Case: [id number] Authorizing Provider: April Mock MD Collected: 01/09/2020 02:19 PM Ordering Location: [facility] Received: 01/09/2020 04:37 PM SERVICES Pathologist: Flavia Lazar MD Specimens: A) - Biopsy, Terminal Ileum, terminal ileum bx B) -Colon Biopsy, Random, random colonic bx A. SMALL BOWEL, TERMINAL ILEUM, BIOPSIES: - CHRONIC ACTIVE ILEITISB. COLON, RANDOM BIOPSIES: - REACTIVE CHANGENZK/pl Signing Pathologist Direct Phone Line: [phone] signed by Flavia Lazar MD on 01/13/2020 at 12:49 [id number] and postoperative diagnoses: Crohn's disease of both [...] abscess, microscopic colitis, dysplasia or malignancy is seen.[facility] blood zqrvpwecvh5178-18-75 01:29:00 Test Item Value Reference Range Interpretation Comments [facility] blood collection [facility] to [facility] (test code = [facility] blood collection) NPI:[id number] macro (dipstick) panel - Zbqyw0666-90-14 15:18:00 Test Item Value Reference Range Interpretation Comments Leukocytes (test code = Negative Leukocytes) Nitrite (test code = Nitrite) negative Urobilinogen (test code = 1 Urobilinogen) Protein (test code = Protein) Trace pH (test code = pH) 6.0 Blood (test code = Blood) Negative Specific [place] (test code = 1.030 Specific [place]) Ketone (test code = Ketone) Negative Bilirubin (test code = Bilirubin) Small Glucose (test code = Glucose) Negative Appearance (test code = Clear Appearance) Color (test code = Color) Dark Yellow NPI:[id number] macro (dipstick) panel - Fjgim6323-91-04 15:18:00 Test Item Value Reference Range Interpretation Comments Leukocytes (test code = Negative Leukocytes) Nitrite (test code = Nitrite) negative Urobilinogen (test code = 1 Urobilinogen) Protein (test code = Protein) Trace pH (test code = pH) 6.0 Blood (test code = Blood) Negative Specific [place] (test code = 1.030 Specific [place]) Ketone (test code = Ketone) Negative Bilirubin (test code = Bilirubin) Small Glucose (test code = Glucose) Negative Appearance (test code = Clear Appearance) Color (test code = Color) Dark Yellow NPI:[id number] metabolic 2000 panel - Serum or Npihqx6618-81-95 01:33:00 Test Item Value Reference Range Interpretation [...] Serum or Plasma (test code = 6768-6) NPI:[id number] metabolic 2000 panel - Serum or Jrqxyu9960-48-74 01:33:00 Test Item Value Reference Range Interpretation [...] Serum or Plasma (test code = 6768-6) NPI:[id number] blood jmkiihvuvx0117-31-14 10:15:00 Test Item Value Reference Range Interpretation Comments [facility] ([facility]) NPI:[id number] blood oczlauzaks2677-85-20 10:15:00 Test Item Value Reference Range Interpretation Comments [facility] (test code = [facility] blood collection) NPI:[id number] macro (dipstick) panel - Xsqpl0976-98-42 14:31:00 Test Item Value Reference Range Interpretation Comments Leukocytes (test code = Leukocytes) Negative Nitrite (test code = Nitrite) negative Urobilinogen (test code = .2 Urobilinogen) Protein (test code = Protein) Negative pH (test code = pH) 6.5 Blood (test code = Blood) Negative Specific [place] (test code = 1.025 Specific [place]) Ketone (test code = Ketone) Negative Bilirubin (test code = Bilirubin) Negative Glucose (test code = Glucose) Negative Appearance (test code = Appearance) Cloudy Color (test code = Color) Yellow NPI:[id number] macro (dipstick) panel - Eiqdx1478-61-29 14:31:00 Test Item Value Reference Range Interpretation Comments Leukocytes (test code = Leukocytes) Negative Nitrite (test code = Nitrite) negative Urobilinogen (test code = .2 Urobilinogen) Protein (test code = Protein) Negative pH (test code = pH) 6.5 Blood (test code = Blood) Negative Specific [place] (test code = 1.025 Specific [place]) Ketone (test code = Ketone) Negative Bilirubin (test code = Bilirubin) Negative Glucose (test code = Glucose) Negative Appearance (test code = Appearance) Cloudy Color (test code = Color) Yellow NPI:[id number], JCMVNYD5172-20-29 10:26:00ENTEROGRAPHYFINAL REPORT CT of the abdomen and pelvis, with contrast Clinical History: C rohn's disease with complication, unspecified gastrointestinal tract location [...] MDReport Verified Date/Time: 06/19/2019 10:26:36 Reading Location: [facility] C013X Ortho Consult Reading Room quest [id number] 10:45:00 Test Item Value Reference Range Interpretation Comments quest collection (test code = quest quest collection) NPI:[id number] sp DNA [Presence] in Vaginal fluid by Probe and target amplification wyibcg6913-77-18 00:00:00 Test Item Value Reference Range Interpretation [...] code = ye glabrata by real-time PCR) NPI:[id number] macro (dipstick) panel - Zzoty5279-58-42 13:42:54 Test Item Value Reference Range Interpretation Comments Leukocytes (test code = Leukocytes) Negative Nitrite (test code = Nitrite) negative Urobilinogen (test code = .2 Urobilinogen) Protein (test code = Protein) Negative pH (test code = pH) 7.0 Blood (test code = Blood) Negative Specific [place] (test code = 1.015 Specific [place]) Ketone (test code = Ketone) Trace Bilirubin (test code = Bilirubin) Small Glucose (test code = Glucose) Negative Appearance (test code = Appearance) Clear Color (test code = Color) Yellow NPI:[id number] macro (dipstick) panel - Gjpdo4770-03-98 13:42:54 Test Item Value Reference Range Interpretation Comments Leukocytes (test code = Leukocytes) Negative Nitrite (test code = Nitrite) negative Urobilinogen (test code = .2 Urobilinogen) Protein (test code = Protein) Negative pH (test code = pH) 7.0 Blood (test code = Blood) Negative Specific [place] (test code = 1.015 Specific [place]) Ketone (test code = Ketone) Trace Bilirubin (test code = Bilirubin) Small Glucose (test code = Glucose) Negative Appearance (test code = Appearance) Clear Color (test code = Color) Yellow NPI:[id number] macro (dipstick) panel - Skrpk5944-72-98 10:18:17 Test Item Value Reference Range Interpretation Comments Leukocytes (test code = Leukocytes) Negative Nitrite (test code = Nitrite) negative Urobilinogen (test code = .2 Urobilinogen) Protein (test code = Protein) Negative pH (test code = pH) 6.5 Blood (test code = Blood) Negative Specific [place] (test code = 1.010 Specific [place]) Ketone (test code = Ketone) Negative Bilirubin (test code = Bilirubin) Negative Glucose (test code = Glucose) Negative Appearance (test code = Appearance) Clear Color (test code = Color) Yellow NPI:[id number] macro (dipstick) panel - Xumyy2598-25-03 10:18:17 Test Item Value Reference Range Interpretation Comments Leukocytes (test code = Leukocytes) Negative Nitrite (test code = Nitrite) negative Urobilinogen (test code = .2 Urobilinogen) Protein (test code = Protein) Negative pH (test code = pH) 6.5 Blood (test code = Blood) Negative Specific [place] (test code = 1.010 Specific [place]) Ketone (test code = Ketone) Negative Bilirubin (test code = Bilirubin) Negative Glucose (test code = Glucose) Negative Appearance (test code = Appearance) Clear Color (test code = Color) Yellow NPI:[id number] macro (dipstick) panel - Rbbgi4107-57-92 10:18:17 Test Item Value Reference Range Interpretation Comments Leukocytes (test code = Leukocytes) Negative Nitrite (test code = Nitrite) negative Urobilinogen (test code = .2 Urobilinogen) Protein (test code = Protein) Negative pH (test code = pH) 6.5 Blood (test code = Blood) Negative Specific [place] (test code = 1.010 Specific [place]) Ketone (test code = Ketone) Negative Bilirubin (test code = Bilirubin) Negative Glucose (test code = Glucose) Negative Appearance (test code = Appearance) Clear Color (test code = Color) Yellow NPI:[id number] macro (dipstick) [facility] - Gjjdc7643-58-97 10:04:32 Test Item Value Reference Range Interpretation Comments Leukocytes (test code = Leukocytes) Negative Nitrite (test code = Nitrite) negative Urobilinogen (test code = .2 Urobilinogen) Protein (test code = Protein) Negative pH (test code = pH) 6.5 Blood (test code = Blood) Negative Specific [place] (test code = 1.010 Specific [place]) Ketone (test code = Ketone) Negative Bilirubin (test code = Bilirubin) Negative Glucose (test code = Glucose) Negative Appearance (test code = Appearance) Clear Color (test code = Color) Yellow NPI:[id number] macro (dipstick) panel - [id number] 10:04:32 Test Item Value Reference Range Interpretation Comments Leukocytes (test code = Leukocytes) Negative Nitrite (test code = Nitrite) negative Urobilinogen (test code = .2 Urobilinogen) Protein (test code = Protein) Negative pH (test code = pH) 6.5 Blood (test code = Blood) Negative Specific [place] (test code = 1.010 Specific [place]) Ketone (test code = Ketone) Negative Bilirubin (test code = Bilirubin) Negative Glucose (test code = Glucose) Negative Appearance (test code = Appearance) Clear Color (test code = Color) Yellow NPI:[id number] macro (dipstick) panel - Mlfmb6826-08-06 10:04:32 Test Item Value Reference Range Interpretation Comments Leukocytes (test code = Leukocytes) Negative Nitrite (test code = Nitrite) negative Urobilinogen (test code = .2 Urobilinogen) Protein (test code = Protein) Negative pH (test code = pH) 6.5 Blood (test code = Blood) Negative Specific [place] (test code = 1.010 Specific [place]) Ketone (test code = Ketone) Negative Bilirubin (test code = Bilirubin) Negative Glucose (test code = Glucose) Negative Appearance (test code = Appearance) Clear Color (test code = Color) Yellow NPI:[id number] identified in Urine by Qitfqnn3508-79-88 00:00:00Bacteria Ur CultNPI:[id number] sensitivity testing, ngfeqic9000-39-03 00:00:00 Test Item Value Reference Range Interpretation [...] Minimum inhibitory concentration (VIVIENNE) (test code = 38508-9) Piperacillin+Tazobactam <16 [Susceptibility] by Minimum inhibitory concentration [...] <2 inhibitory concentration (VIVIENNE) (test code = 10869-3) Aztreonam [Susceptibility] by Minimum <8 inhibitory concentration (VIVIENNE) (test code = 44-8) Cefuroxime [Susceptibility] by Minimum <4 inhibitory concentration (VIVIENNE) (test code = 46816-7) Meropenem [Susceptibility] by Minimum <4 inhibitory concentration (VIVIENNE) (test code = 6652-2) NPI:[id number] identified in Urine by Goeiufy3044-00-01 00:00:00Bacteria Ur CultNPI:[id number] sensitivity testing, rapfnty0001-65-79 00:00:00 Test Item Value Reference Range Interpretation [...] Minimum inhibitory concentration (VIVIENNE) (test code = 79545-7) Piperacillin+Tazobactam <16 [Susceptibility] by Minimum inhibitory concentration [...] <2 inhibitory concentration (VIVIENNE) (test code = 77059-9) Aztreonam [Susceptibility] by Minimum <8 inhibitory concentration (VIVIENNE) (test code = 44-8) Cefuroxime [Susceptibility] by Minimum <4 inhibitory concentration (VIVIENNE) (test code = 52179-6) Meropenem [Susceptibility] by Minimum <4 inhibitory concentration (VIVIENNE) (test code = 6652-2) NPI:[id number] observation [Identifier] in Cervix by Cyto stain.thin [id number] 00:00:00 Test Item Value Reference Range Interpretation Comments Human papilloma virus positive 16+18+31+33+35+39+45+51+52+56+58+59+ 68 DNA [Presence] in Cervix by Probe and signal amplification method (test code = 69621-1) results (test code = results) NPI:[id number] identified in Urine by [id number] 02:14:00 Test Item Value Reference Range Interpretation Comments Bacteria identified in no growth at 48 hrs. Urine by Culture (test code = 630-4) NPI:[id number] identified in Urine by [id number] 02:14:00 Test Item Value Reference Range Interpretation Comments Bacteria identified in no growth at 48 hrs. Urine by Culture (test code = 630-4) NPI:[id number] 08:01:00 Test Item Value Reference Range Interpretation Comments MAGNESIUM (BEAKER) 1.8 mg/dL 1.6-2.6 Specimen moderately (test code = 627) hemolyzed BASIC METABOLIC [id number] 08:01:00 Test Item Value Reference Range Interpretation [...] PATIEN TS. CBC W/PLT COUNT & AUTO [id number] 05:59:00 Test Item Value Reference Range Interpretation [...] 0-1 PERCENT (BEAKER) (test code = 2801) [id number] 07:04:00 Test Item Value Reference Range Interpretation Comments MAGNESIUM (BEAKER) (test code = 1.8 mg/dL 1.6-2.6 627) BASIC METABOLIC [id number] 07:04:00 Test Item Value Reference Range Interpretation [...] NOT APPLICABLE FOR DIALYSIS PATIEN TS. CORTISOL,60 [id number] 07:01:00 Test Item Value Reference Range Interpretation Comments CORTISOL BASELINE NETWORKED < mcg/dL (BEAKER) (test code = 0200) CORTISOL 30 MINUTE NETWORKED 6.0 mcg/dL (BEAKER) [...] a study by Padilla et al (MIGUEL 2000,283(8):7346-45), the ACTH Stimulation Test provides important prognostic [...] a study by Padilla et al (MIGUEL 2000,283(8):5132-45), the ACTH Stimulation Test provides important prognostic [...] after cosyntropin administration.CBC W/PLT COUNT & AUTO [id number] 05:46:00 Test Item Value Reference Range Interpretation [...] 0-1 PERCENT (BEAKER) (test code = 2801) CORTISOL,[id number] 19:10:00 Test Item Value Reference Range Interpretation [...] = 1.8 mg/dL 1.6-2.6 627) BASIC METABOLIC [id number] 14:23:00 Test Item Value Reference Range Interpretation [...] PATIEN TS. CBC W/PLT COUNT & AUTO [id number] 14:01:00 Test Item Value Reference Range Interpretation [...] (test code = 2801) OVA AND PARASITE [id number] 12:03:00 Test Item Value Reference Range Interpretation [...] (BEAKER) (test seen seen code = 248) [id number] 05:30:00 Test Item Value Reference Range Interpretation Comments MAGNESIUM (BEAKER) (test code = 1.9 mg/dL 1.6-2.6 627) BASIC METABOLIC [id number] 05:30:00 Test Item Value Reference Range Interpretation [...] PATIEN TS. CBC W/PLT COUNT & AUTO [id number] 04:58:00 Test Item Value Reference Range Interpretation [...] PERCENT (BEAKER) (test code = 2801) TISSUE [id number] 15:51:00Surgical Pathology Report Case: [id number] Authorizing Provider: Bartolo Quinn Collected: 11/10/2018 1543 Ordering Location: [address] Received: 11/12/2018 0813 Service Pathologist: Linda [...] CRYPT DISTORTION Signing Pathologist Direct Phone Line: [phone] signed by Linda Mullen MD on 11/12/2018 at 3:51 PMPatient's history of Crohn's disease is noted. The current sampling shows no significant active or chronic colitis. This may represent complete histologic resolution following treatment. Clinical and endoscopic correlation is recommended.[id number] and postop diagnosis: diarrhea A. Neoterminal ileum [...] in E1. CG/pl Performed.STOOL CULTURE + SHIGA [id number] 08:26:00 Test Item Value Reference Range Interpretation Comments CULTURE (BEAKER) No Salmonella, Shigella (test code = 1095) or Campylobacter isolated GI PATHOGEN PROFILE BY [id number] 08:20:00 Test Item Value Reference Range Interpretation [...] detected COLI (STEC) STX1/STX2 (test code = 3054437) E. COLI O157 (PCR) (test code = Not detected 20151206) SHIGELLA/ENTEROINVASIVE E. COLI Not detected Not detected (EIEC) BY PCR (test code = 1383228) CRYPTOSPORIDIUM (PCR) (test code Not detected Not detected = 20151208) CYCLOSPORA CAYETANENSIS (PCR) Not detected Not detected (test code = 4779105) ENTAMOEBA HISTOLYTICA (PCR) Not detected Not detected [...] sample was tested at the [facility] using the [employer] Gastrointestinal Panel. It is FDA cleared and has been verified and approved by the [facility] for clinical use. This laboratory is CLIA-certified and College ofAmerican Pathologists (CAP)-accredited to perform high complexity testing.CORTISOL 2018-11-09 06:24:00 Test Item Value Reference Range Interpretation Comments CORTISOL, TOTAL (BEAKER) (test code = < ug/dL 3.7-19.4 L 2755) BASIC METABOLIC [id number] 05:50:00 Test Item Value Reference Range Interpretation [...] APPLICABLE FOR DIALYSIS PATIEN TS. SHIGA TOXIN [id number] 14:16:00 Test Item Value Reference Range Interpretation Comments SHIGA TOXIN 1 (BEAKER) (test Not detected Not detected code = 2177) SHIGA TOXIN 2 (BEAKER) (test Not detected Not detected code = 2179) STOOL PATH [id number] 10:08:00 Test Item Value Reference Range Interpretation Comments PATHOGEN EXAM CHARGED (BEAKER) (test Done code = 2381) TSH/FREE T4 IF [id number] 05:59:00 Test Item Value Reference Range Interpretation Comments THYROID STIMULATING HORMONE 2.84 uIU/mL 0.35-4.94 (BEAKER) (test code = 772) BASIC METABOLIC [id number] 05:38:00 Test Item Value Reference Range Interpretation [...] DIALYSIS PATIEN TS. RAD, ABDOMEN/KUB, 1 VIEW [id number] 14:37:00Reason for exam:->post-obstructive diarrheaShould this be performed [...] Verified Date/Time: 11/07/2018 14:37:57 Reading Location: [address] Consult Reading Room CT, [id number] 14:25:00FINAL REPORT TECHNIQUE: CT of the abdomen [...] MDReport Verified Date/Time: 11/07/2018 14:25:25 Reading Location: [facility] C0Y CT Body Reading Room CBC W/PLT COUNT & AUTO [id number] 13:14:00 Test Item Value Reference Range Interpretation [...] comment: User comments: Slide comments:C. DIFFICILE GDH [id number] 12:53:00 Test Item Value Reference Range Interpretation Comments CDT TOXIN (test code Negative Negative = 5861541579) CDT GDH ANTIGEN (test Negative Negative No ind ication of code = 0357095611) Clostridi um difficile infection and n o colonization. Discontinue ent leon isolation and t herapy. Testing performed by [employer] Rapid Cassette Assay. For GDH, published sensitivity of the assay is 98.7% compared to cytotoxicity testing. For Toxin AB, published sensitivity is 87.8% and specificity 99.4% compared to cytotoxicity testing.Verification of kit performance was done by the [facility] prior to clinical use.C-REACTIVE [id number] 06:53:00 Test Item Value Reference Range Interpretation Comments C-REACTIVE PROTEIN (BEAKER) (test 0.37 mg/dL 0.00-0.50 code = 676) BASIC METABOLIC [id number] 06:41:00 Test Item Value Reference Range Interpretation [...] NOT APPLICABLE FOR DIALYSIS PATIEN TS. CT, [id number] 09:48:00FINAL REPORT CT Abdomen And Pelvis with [...] is recommended to confirm stability. Signed: [facility] Verified Date/Time: 09/20/2018 09:48:51 [facility], BONE DENSITY [id number] 13:22:00Reason for Exam:- >crohn's disease of both [...] for bone mineral density as provided by long wall mining machine tender is 0.023 g/cm2 for lumbar spine and [...] Art Bermeo MDReport Verified Date/Time: 09/04/2018 13:22:29 [id number] 07:02:00 Test Item Value Reference Range Interpretation Comments PHOSPHORUS (BEAKER) (test code = 2.9 mg/dL 2.3-4.7 604) [id number] 07:02:00 Test Item Value Reference Range Interpretation Comments MAGNESIUM (BEAKER) (test code = 1.9 mg/dL 1.6-2.6 627) BASIC METABOLIC [id number] 07:02:00 Test Item Value Reference Range Interpretation [...] 0-0 (BEAKER) (test code = 413) TISSUE [id number] 13:47:00Surgical Pathology Report Case: [id number] Authorizing Provider: Jani Alejandro MD Collected: 08/20/2018 1003 Ordering Location: [facility] Received: 08/20/2018 1118 SERVICES Pathologist: Linda Mullen MD Specimen: Large Intestine, Colon - Right/Ascending, RIGHT COLON AND SMALL BOWEL A. COLON, RIGHT/ASCENDING, RIGHT HEMICOLECTOMY: - CHRONIC ACTIVE ENTERITIS COMPATIBLE WITH CROHN'S DISEASE (SEE COMMENT) - NEGATIVE FOR GRANULOMAS (OR) VIRAL CYTOPATHIC CHANGES - NEGATIVE FOR DYSPLASIA (OR) MALIGNANCY - MARGINS, UNREMARKABLE Signing Pathologist Direct Phone Line: [phone] signed by Linda Mullen MD on 08/22/2018 [...] cytopathic changes are seen.IDC: Dr. Leslie Carballo concurs.68909Axjgh's disease of small intestine without complication Right [...] folding and no masses or lesions identified. Homicide Detective sections are submitted in 10 cassettes as follows.Ink code: Blue-one marginBlack-margin closest to anastomotic siteSection code: A1 - car sales representative sections of both margins, differentially inked per the ink code A2-A5 - entire sections of ulcerative areaA6 - entire sections of hemorrhagic mucosal areaA7-A10 - car sales representative sections of mucosaFR/ewPerformed.[id number] 06:10:00 Test Item Value Reference Range Interpretation Comments PHOSPHORUS (BEAKER) (test code = 2.3 mg/dL 2.3-4.7 604) [id number] 06:10:00 Test Item Value Reference Range Interpretation Comments MAGNESIUM (BEAKER) (test code = 1.7 mg/dL 1.6-2.6 627) BASIC METABOLIC [id number] 06:10:00 Test Item Value Reference Range Interpretation [...] WBC 0-0 (BEAKER) (test code = 413) [id number] 03:34:00 Test Item Value Reference Range Interpretation Comments PHOSPHORUS (BEAKER) (test code = 2.5 mg/dL 2.3-4.7 604) [id number] 03:34:00 Test Item Value Reference Range Interpretation Comments MAGNESIUM (BEAKER) (test code = 1.9 mg/dL 1.6-2.6 627) BASIC METABOLIC [id number] 03:34:00 Test Item Value Reference Range Interpretation [...] 0-0 (BEAKER) (test code = 413) POCT-GLUCOSE [id number] 11:42:00 Test Item Value Reference Range Interpretation Comments POC-GLUCOSE METER 129 mg/dL 70-[address] [facility] 67[address] (BEAKER) (test code = [place] 1538) [address] POCT-GLUCOSE [id number] 06:28:00 Test Item Value Reference Range Interpretation Comments POC-GLUCOSE METER 102 mg/dL 70-[address] [facility] [address] ([facility]) (test code = RYNE Barnes [facility] 1538) [address] CT, [id number] 15:41:00FINAL REPORT CT abdomen and pelvis with [...] MDReport Verified Date/Time: 08/17/2018 15:41:17 Reading Location: [facility] Diagnostic Imaging Reading Room - [place] [address] STOOL CULTURE + SHIGA [id number] 15:37:00 Test Item Value Reference Range Interpretation Comments CULTURE ([facility]) No Salmonella, Shigella (test code = 1095) or Campylobacter isolated POCT-GLUCOSE [id number] 08:25:00 Test Item Value Reference Range Interpretation Comments POC-GLUCOSE METER 197 mg/dL 70-[address] [facility] [address] ([facility]) (test code = RYNE Barnes [facility] 1538) [address] [id number] 05:59:00 Test Item Value Reference Range Interpretation Comments PHOSPHORUS (BEAKER) (test code = 3.6 mg/dL 2.3-4.7 604) [id number] 05:59:00 Test Item Value Reference Range Interpretation Comments MAGNESIUM (BEAKER) (test code = 2.3 mg/dL 1.6-2.6 627) BASIC METABOLIC [id number] 05:59:00 Test Item Value Reference Range Interpretation [...] APPLICABLE FOR DIALYSIS PATIEN TS. HEPATIC FUNCTION [id number] 05:59:00 Test Item Value Reference Range Interpretation [...] code = 41 U/L 6-55 347) POCT-GLUCOSE [id number] 21:05:00 Test Item Value Reference Range Interpretation Comments POC-GLUCOSE METER 148 mg/dL 70-110 H TESTED AT [place] [address] ([facility]) (test code = [place] 1538) [address] C. DIFFICILE GDH [id number] 15:59:00 Test Item Value Reference Range Interpretation Comments CDT TOXIN (test code Negative Negative = 1164428227) CDT GDH ANTIGEN (test Negative Negative No ind ication of code = 3211683482) Clostridi um difficile infection and n o colonization. Discontinue ent leon isolation and t herapy. Testing performed by [employer] Rapid Cassette Assay. For GDH, published sensitivity of the assay is 98.7% compared to cytotoxicity testing. For Toxin AB, published sensitivity is 87.8% and specificity 99.4% compared to cytotoxicity testing.Verification of kit performance was done by the [facility] prior to clinical use.SHIGA TOXIN [id number] 14:22:00 Test Item Value Reference Range Interpretation Comments SHIGA TOXIN 1 ([facility]) (test Not detected Not detected code = 2177) SHIGA TOXIN 2 ([facility]) (test Not detected Not detected code = 2179) POCT-GLUCOSE [id number] 13:13:00 Test Item Value Reference Range Interpretation Comments POC-GLUCOSE METER 119 mg/dL 70-110 H TESTED AT [place] [address] ([facility]) (test code = RYNE Barnes [facility] 1538) [address] STOOL PATH [id number] 10:03:00 Test Item Value Reference Range Interpretation Comments PATHOGEN EXAM CHARGED ([facility]) (test Done code = 2381) POCT-GLUCOSE [id number] 09:13:00 Test Item Value Reference Range Interpretation Comments POC-GLUCOSE METER 111 mg/dL 70-110 H TESTED AT [place] [address] ([facility]) (test code = RYNE Barnes [facility] 1538) [address] [id number] 06:09:00 Test Item Value Reference Range Interpretation Comments PREALBUMIN ([facility]) (test code = 36 mg/dL 14-45 586) CBC W/PLT COUNT & AUTO [id number] 06:02:00 Test Item Value Reference Range Interpretation [...] 0-1 PERCENT (BEAKER) (test code = 2801) [id number] 05:52:00 Test Item Value Reference Range Interpretation Comments PHOSPHORUS (BEAKER) (test code = 4.0 mg/dL 2.3-4.7 604) [id number] 05:52:00 Test Item Value Reference Range Interpretation Comments MAGNESIUM (BEAKER) (test code = 2.3 mg/dL 1.6-2.6 627) BASIC METABOLIC [id number] 05:52:00 Test Item Value Reference Range Interpretation [...] APPLICABLE FOR DIALYSIS PATIEN TS. HEPATIC FUNCTION [id number] 05:52:00 Test Item Value Reference Range Interpretation [...] = 12 U/L 5-34 353) ALT (SGPT) (JESS) (test code = 29 U/L 6-55 347) C-REACTIVE [id number] 05:52:00 Test Item Value Reference Range Interpretation Comments C-REACTIVE PROTEIN (JESS) (test 0.22 mg/dL 0.00-0.50 code = 676) POCT-GLUCOSE [id number] 23:39:00 Test Item Value Reference Range Interpretation Comments POC-GLUCOSE METER 122 mg/dL 70-[address] [facility] [address] (JESS) (test code = [place] 1538) [address] CT, [id number] 04:05:00FINAL REPORT CLINICAL HISTORY: Acute abdominal pain, [...] MDReport Verified Date/Time: 07/21/2018 04:05:05 Reading Location: [address] Reading Room [id number] 22:00:00 Test Item Value Reference Range Interpretation Comments LIPASE (BEAKER) (test code = 749) 12 U/L 8-78 COMPREHENSIVE METABOLIC [id number] 22:00:00 Test Item Value Reference Range Interpretation [...] S NOT APPLICABLE FOR DIALYSIS PATIEN TS. [id number] 21:55:00 Test Item Value Reference Range Interpretation Comments PARTIAL THROMBOPLASTIN TIME 24.6 seconds 22.5-36.0 (BEAKER) (test code = 760) PROTHROMBIN [id number] 21:53:00 Test Item Value Reference Range Interpretation [...] PERCENT (BEAKER) (test code = 2801) TISSUE [id number] 09:23:00Surgical Pathology Report Case: [id number] Authorizing Provider: King Huynh MD Collected: 07/11/2018 0924 Ordering Location: [address] Received: 07/11/2018 1421 Service Pathologist: Linda [...] AND COMMENT) Signing Pathologist Direct Phone Line: [phone] signed by Linda Mullen MD on 07/12/2018 at 9:23 AMPatient's history of Crohn's disease is noted per Epic note dated 07/10/18. The current sampling shows no significant active or chronic colitis. This may represent complete histologic resolution following treatment. Clinical and endoscopic correlation is recommended.81150J1Ayszl abdominal pain A. Random colon biopsy. B. [...] noted. No dysplasia or carcinoma is present.BLOOD [id number] 20:01:00 Test Item Value Reference Range Interpretation Comments CULTURE (BEAKER) (test No growth in 5 days code = 1095) BLOOD [id number] 20:01:00 Test Item Value Reference Range Interpretation Comments CULTURE (BEAKER) (test No growth in 5 days code = 1095) BASIC METABOLIC [id number] 04:55:00 Test Item Value Reference Range Interpretation [...] PATIEN TS. CBC W/PLT COUNT & AUTO [id number] 04:37:00 Test Item Value Reference Range Interpretation [...] (BEAKER) (test code = 2801) BASIC METABOLIC [id number] 06:15:00 Test Item Value Reference Range Interpretation [...] PATIEN TS. CBC W/PLT COUNT & AUTO [id number] 06:06:00 Test Item Value Reference Range Interpretation [...] code = 2801) STOOL CULTURE + SHIGA [id number] 12:15:00 Test Item Value Reference Range Interpretation Comments CULTURE (BEAKER) No Salmonella, Shigella (test code = 1095) or Campylobacter isolated BASIC METABOLIC [id number] 07:08:00 Test Item Value Reference Range Interpretation [...] PATIEN TS. CBC W/PLT COUNT & AUTO [id number] 06:42:00 Test Item Value Reference Range Interpretation [...] code = 2801) CT, ABDOMEN - PELVIS, [id number] 14:17:00Reason for exam:- >Evaluation of small bowel [...] lesion demonstrated. Endplate degenerative change at L1-2 lobP96-K6 noted. There is an implanted pump in the right lower quadrant subcutaneous fat with a lead going to the thecal sac terminating at the T11 level. IMPRESSION: Evidence of acute colitis of the sigmoid colon. No small bowel enteritis demonstrated. No stricture, fistula, or intramesenteric abscess demonstrated. Signed: Ervin Johnson MDReport Verified Date/Time: 07/08/2018 14:17:31 Reading Location: [address] Consult Reading Room C METABOLIC [id number] 06:53:00 Test Item Value Reference Range Interpretation [...] PATIEN TS. CBC W/PLT COUNT & AUTO [id number] 06:25:00 Test Item Value Reference Range Interpretation [...] (BEAKER) (test code = 2801) SHIGA TOXIN [id number] 13:53:00 Test Item Value Reference Range Interpretation Comments SHIGA TOXIN 1 (BEAKER) (test Not detected Not detected code = 2177) SHIGA TOXIN 2 (BEAKER) (test Not detected Not detected code = 2179) C. DIFFICILE GDH [id number] 13:28:00 Test Item Value Reference Range Interpretation Comments CDT TOXIN (test code Negative Negative = 7398974778) CDT GDH ANTIGEN (test Negative Negative No ind ication of code = 2132913364) Clostridi um difficile infection and n o colonization. Discontinue ent leon isolation and t herapy. Testing performed by [employer] Rapid Cassette Assay. For GDH, published sensitivity of the assay is 98.7% compared to cytotoxicity testing. For Toxin AB, published sensitivity is 87.8% and specificity 99.4% compared to cytotoxicity testing.Verification of kit performance was done by the [facility] prior to clinical use.STOOL PATH [id number] 10:17:00 Test Item Value Reference Range Interpretation Comments PATHOGEN EXAM CHARGED (BEAKER) (test Done code = 2381) BASIC METABOLIC [id number] 05:17:00 Test Item Value Reference Range Interpretation [...] PATIEN TS. CBC W/PLT COUNT & AUTO [id number] 04:58:00 Test Item Value Reference Range Interpretation [...] = 2801) RAD, CHEST, 1 VIEW, NON [id number] 14:21:00Reason for exam:->FeverShould this be performed at the bedside?->YesFINAL REPORT TECHNIQUE: Frontal chest radiograph dated 07/06/2018. CLINICAL HISTORY: Fever COMPARISON STUDY: None IMPRESSION:Lungs are clear. No pleural effusion or pneumothorax. Cardiomediastinal silhouette is normal in size. No pulmonary edema. No fracture. Signed: Xiao Mckinneyeport Verified Date/Time: 07/06/2018 14:21:04 Reading Location: [facility] Radiology Reading Room D DRUG SCREEN, [id number] 12:52:00 Test Item Value Reference Range Interpretation [...] situations. Chain of custody not maintained. Some fxbk-syo-xavaibk medications, as well as adulterants, may cause inaccurate results. Clinical correlation should be applied. A more comprehensive drug screen or confirmation of a detected drug may be performed upon request.CBC W/PLT COUNT & AUTO [id number] 12:40:00 Test Item Value Reference Range Interpretation [...] 0-1 PERCENT (BEAKER) (test code = 2801) [id number] 12:12:00 Test Item Value Reference Range Interpretation Comments PHOSPHORUS (BEAKER) (test code = 3.0 mg/dL 2.3-4.7 604) [id number] 12:12:00 Test Item Value Reference Range Interpretation Comments MAGNESIUM (BEAKER) (test code = 2.1 mg/dL 1.6-2.6 627) BASIC METABOLIC [id number] 12:12:00 Test Item Value Reference Range Interpretation [...] APPLICABLE FOR DIALYSIS PATIEN TS. HEPATIC FUNCTION [id number] 12:12:00 Test Item Value Reference Range Interpretation [...] U/L 6-55 347) LACTIC ACID, VENOUS, WHOLE [id number] 12:08:00 Test Item Value Reference Range Interpretation Comments LACTATE BLOOD VENOUS 0.8 mmol/L 0.5-2.2 Specime n moderately (2) (BEAKER) (test hemolyzed code = 6682) URINALYSIS W/ REFLEX URINE [id number] 11:10:00 Test Item Value Reference Range Interpretation [...] SOURCE(BEAKER) (test code = 2795) URINE AND [id number] 21:40:00 Test Item Value Reference Range Interpretation Comments UA Turbidity (test code Slight *ABN*(02/18/17 = UA Turbidity) 4:40 PM) [facility] AND [id number] 21:40:00 Test Item Value Reference Range Interpretation Comments UA Spec Grav (test code = UA Spec Grav) 1.024 [facility] AND [id number] 21:40:00 Test Item Value Reference Range Interpretation Comments UA Sq Epi (test code = UA Sq Occasional /LPF Epi) [facility] AND [id number] 21:40:00 Test Item Value Reference Range Interpretation Comments UA Leuk Est (test Negative (02/18/17 4:40 code = UA Leuk Est) PM) [facility] [id number] 21:40:00 Test Item Value Reference Range Interpretation Comments eGFR (test code = eGFR) 100 [facility]2017-10-21 21:40:00 Test Item Value Reference Range Interpretation Comments Potassium Lvl (test code = Potassium 3.2 3.5-5.1 Lvl) [facility]2017-10-21 21:40:00 Test Item Value Reference Range Interpretation Comments Sodium Lvl (test code = Sodium Lvl) 145 135-145 [facility]2017-10-21 21:40:00 Test Item Value Reference Range Interpretation Comments Creatinine Lvl (test code = Creatinine 0.73 0.50-1.40 Lvl) [facility]2017-10-21 21:40:00 Test Item Value Reference Range Interpretation Comments Chloride Lvl (test code = Chloride Lvl) 108 95-109 [facility]2017-10-21 21:40:00 Test Item Value Reference Range Interpretation Comments BUN (test code = BUN) 11 7-22 [facility]2017-10-21 21:40:00 Test Item Value Reference Range Interpretation Comments Albumin Lvl (test code = Albumin Lvl) 4.0 3.5-5.0 [facility]2017-10-21 21:40:00 Test Item Value Reference Range Interpretation Comments Total Protein (test code = Total 7.2 6.4-8.4 Protein) [facility]2017-10-21 21:40:00 Test Item Value Reference Range Interpretation Comments Calcium Lvl (test code = Calcium Lvl) 8.2 8.5-10.5 [facility]2017-10-21 21:40:00 Test Item Value Reference Range Interpretation Comments ALT (test code = ALT) 21 See_Comment [Auto mated message] The system which ge nerated this result transmit francine reference range : <=65. The reference range was not used to interpr et this result as angel l/abnormal. [facility]2017-10-21 21:40:00 Test Item Value Reference Range Interpretation Comments CO2 (test code = CO2) 28 24-32 [facility]2017-10-21 21:40:00 Test Item Value Reference Range Interpretation Comments Bili Total (test code = Bili Total) 0.5 0.2-1.3 [facility]2017-10-21 21:40:00 Test Item Value Reference Range Interpretation Comments Alk Phos (test code = Alk Phos) 54 39-136 [facility]2017-10-21 21:40:00 Test Item Value Reference Range Interpretation Comments AST (test code = AST) 12 See_Comment [Auto mated message] The system which ge nerated this result transmit francine reference range : <=37. The reference range was not used to interpr et this result as angel l/abnormal. [facility]2017-10-21 21:40:00 Test Item Value Reference Range Interpretation Comments Glucose Lvl (test code = Glucose Lvl) 98 70-99 [facility]2017-10-21 21:40:00 Test Item Value Reference Range Interpretation Comments Globulin (test code = Globulin) 3.2 2.7-4.2 [facility]2017-10-21 21:40:00 Test Item Value Reference Range Interpretation Comments A/G Ratio (test code = A/G Ratio) 1.2 0.7-1.6 [facility]2017-10-21 21:40:00 Test Item Value Reference Range Interpretation Comments AGAP (test code = AGAP) 12.2 10.0-20.0 [facility]2017-10-21 21:40:00 Test Item Value Reference Range Interpretation Comments B/C Ratio (test code = B/C Ratio) 15 6-25 [facility]2017-10-21 21:40:00 Test Item Value Reference Range Interpretation Comments Lipase Lvl (test code = Lipase Lvl) 178 73-393 [facility]ulgbqyXWLANPDFJF2744-54-42 21:40:00 Test Item Value Reference Range Interpretation Comments Basophils # (test code 0.0 See_Comment [Aut omated message] The = Basophils #) system which generated this result tra nsmitted reference range : <=0.2. The reference r markus was not used to int erpret this result as normal/abnormal . [facility] HospitalEbcazayLQZQKCLPUP3204-52-56 21:40:00 Test Item Value Reference Range Interpretation Comments Monocytes # (test code 0.5 See_Comment [Aut omated message] The = Monocytes #) system which generated this result tra nsmitted reference range : <=0.8. The reference r markus was not used to int erpret this result as normal/abnormal . [facility] HospitalXnhuiauGROITVYWGA0366-66-41 21:40:00 Test Item Value Reference Range Interpretation Comments Eosinophils # (test code 0.2 See_Comment [A utomated message] The = Eosinophils #) system whic h generated this result tra nsmitted reference range : <=0.5. The reference r markus was not used to int erpret this result as normal/abnormal . [facility] HospitalIrrqpudBFWDBDAHLS8991-05-11 21:40:00 Test Item Value Reference Range Interpretation Comments Segs-Bands # (test code = Segs-Bands #) 6.9 1.5-8.1 [facility] HospitalIefikzuDASCXPBPVM0271-68-17 21:40:00 Test Item Value Reference Range Interpretation Comments Lymphocytes # (test code = Lymphocytes 3.0 1.0-5.5 #) [facility] HospitalOminpkkEDWYVAJNUT7473-09-88 21:40:00 Test Item Value Reference Range Interpretation Comments Basophils (test code = 0.4 See_Comment [Aut omated message] The Basophils) system which ge nerated this result tra nsmitted reference range : <=1.0. The reference r markus was not used to int erpret this result as normal/abnormal . [facility] HospitalBtelqvxMZKYZDLCMQ3737-52-00 21:40:00 Test Item Value Reference Range Interpretation Comments Lymphocytes (test code = Lymphocytes) 28.1 20.0-40.0 [facility] HospitalLvygqefPINMSEFHPD0575-29-77 21:40:00 Test Item Value Reference Range Interpretation Comments Monocytes (test code = Monocytes) 4.9 2.0-12.0 [facility] HospitalVtkqwrkFYIPDEHMVV4150-30-66 21:40:00 Test Item Value Reference Range Interpretation Comments Eosinophils (test code = 1.6 See_Comment [A utomated message] The Eosinophils) system which ge nerated this result tra nsmitted reference range : <=4.0. The reference r markus was not used to int erpret this result as normal/abnormal . [facility] HospitalUtzkcqbKQVIIAHPVU1073-27-52 21:40:00 Test Item Value Reference Range Interpretation Comments Segs (test code = Segs) 65.0 45.0-75.0 [facility] HospitalAmbdtffJFQCEGDYZT5588-30-12 21:40:00 Test Item Value Reference Range Interpretation Comments Platelet (test code = Platelet) 342 133-450 [facility] HospitalIebhgmpJKINHPLLLB3503-90-23 21:40:00 Test Item Value Reference Range Interpretation Comments MPV (test code = MPV) 6.9 7.4-10.4 [facility] HospitalGbirntbVEYSOWQDLI0596-15-98 21:40:00 Test Item Value Reference Range Interpretation Comments Hgb (test code = Hgb) 13.8 12.0-16.0 [facility] HospitalFeznqvpEIDXASLORI9777-73-92 21:40:00 Test Item Value Reference Range Interpretation Comments Hct (test code = Hct) 41.9 36.0-48.0 [facility] HospitalPhqjbjqKCERQOYBLX1303-21-98 21:40:00 Test Item Value Reference Range Interpretation Comments MCV (test code = MCV) 95.4 80.0-98.0 [facility] HospitalQdezmeoDZVGJNHUTD2555-77-18 21:40:00 Test Item Value Reference Range Interpretation Comments MCH (test code = MCH) 31.4 pg 27.0-31.0 [facility] HospitalRznorywFAEFVOEPBP1916-27-36 21:40:00 Test Item Value Reference Range Interpretation Comments MCHC (test code = MCHC) 32.9 32.0-36.0 [facility] HospitalHnclozwOWXAOJMORA8002-84-24 21:40:00 Test Item Value Reference Range Interpretation Comments RDW (test code = RDW) 14.0 11.5-14.5 [facility] HospitalLpzomwvCWPAHUUXMR0562-30-12 21:40:00 Test Item Value Reference Range Interpretation Comments WBC (test code = WBC) 10.6 3.7-10.4 [facility] HospitalLomksgcQHCVFLJVRN2098-04-94 21:40:00 Test Item Value Reference Range Interpretation Comments RBC (test code = RBC) 4.39 4.20-5.40 [facility] [id number] 21:40:00 Test Item Value Reference Range Interpretation Comments UA Urobilinogen (test code = UA <=1.0 mg/dL 0.1-1.0 Urobilinogen) [facility] AND [id number] 21:40:00 Test Item Value Reference Range Interpretation Comments UA WBC (test code = 4 See_Comment [Automa francine message] The UA WBC) system which ge nerated this result transmit francine reference range : <=5. The reference range was not used to interpr et this result as angel l/abnormal. [facility] AND [id number] 21:40:00 Test Item Value Reference Range Interpretation Comments UA RBC (test code = 6 See_Comment [Automa francine message] The UA RBC) system which ge nerated this result transmit francine reference range : <=2. The reference range was not used to interpr et this result as angel l/abnormal. [facility] AND [id number] 21:40:00 Test Item Value Reference Range Interpretation Comments UA Mucus (test code = UA Mucus) Many /LPF [facility] AND [id number] 21:40:00 Test Item Value Reference Range Interpretation Comments UA pH (test code = UA pH) 5.0 5.0-8.0 [facility] [id number] 21:40:00 Test Item Value Reference Range Interpretation Comments UA Protein (test code = UA Protein) 30 mg/dL [facility] [id number] 21:40:00 Test Item Value Reference Range Interpretation Comments UA Glucose (test code = UA Negative mg/dL Glucose) [facility] AND [id number] 21:40:00 Test Item Value Reference Range Interpretation Comments UA Ketones (test code = UA Ketones) 20 mg/dL [facility] [id number] 21:40:00 Test Item Value Reference Range Interpretation Comments UA Blood (test code = Negative (02/18/17 4:40 UA Blood) PM) [facility] AND [id number] 21:40:00 Test Item Value Reference Range Interpretation Comments UA Nitrite (test code Negative (02/18/17 4:40 = UA Nitrite) PM) [facility] AND [id number] 21:40:00 Test Item Value Reference Range Interpretation Comments UA Bili (test code = Negative *NA*(02/18/17 UA Bili) 4:40 PM) [facility] AND [id number] 21:40:00 Test Item Value Reference Range Interpretation Comments UA Color (test code = Dark Yellow UA Color) *NA*(02/18/17 4:40 PM) [facility] [id number] 10:52:00 Test Item Value Reference Range Interpretation Comments Phosphorus (test code = Phosphorus) 2.7 2.5-4.5 [facility] [id number] 10:52:00 Test Item Value Reference Range Interpretation Comments Magnesium Lvl (test code = Magnesium 2.2 1.8-2.4 Lvl) [facility]IMRY[facility]852[facility] 10:52:00 Test Item Value Reference Range Interpretation Comments Chloride Lvl (test code = Chloride Lvl) 109 95-109 [facility]JuetjbjMGHRLQPNKHJF7364-45-25 10:52:00 Test Item Value Reference Range Interpretation Comments Calcium Lvl (test code = Calcium Lvl) 8.3 8.5-10.5 [facility]PxlhctsXOWBRYFOEKKB7693-02-44 10:52:00 Test Item Value Reference Range Interpretation Comments AGAP (test code = AGAP) 10.6 10.0-20.0 [facility]VwxrkdiGOMWAKKXWEDM8562-38-87 10:52:00 Test Item Value Reference Range Interpretation Comments Glucose Lvl (test code = Glucose Lvl) 88 70-99 [facility]WybfvzxRIYVJOMPTEBW8752-08-61 10:52:00 Test Item Value Reference Range Interpretation Comments Sodium Lvl (test code = Sodium Lvl) 144 135-145 [facility]awOlnuztvQXJBFJAMARJR4987-40-72 10:52:00 Test Item Value Reference Range Interpretation Comments Potassium Lvl (test code = Potassium 3.6 3.5-5.1 Lvl) [facility]FxwjsgcWQEHVZPMEEWM4635-98-51 10:52:00 Test Item Value Reference Range Interpretation Comments BUN (test code = BUN) 6 7-22 [facility]awGdjuuxcRUFMQIXTZXYP9732-50-42 10:52:00 Test Item Value Reference Range Interpretation Comments Creatinine Lvl (test code = Creatinine 0.61 0.50-1.40 Lvl) [facility]PnfgidcOCJSTGVGKENX0816-29-79 10:52:00 Test Item Value Reference Range Interpretation Comments CO2 (test code = CO2) 28 -32 [facility]QyceqdoBTXOUZXYRQLO7768-82-87 10:52:00 Test Item Value Reference Range Interpretation Comments eGFR (test code = eGFR) 110 [facility]2017-06-12 09:37:00 Test Item Value Reference Range Interpretation Comments eGFR (test code = eGFR) 110 [facility]2017-06-12 09:37:00 Test Item Value Reference Range Interpretation Comments Sodium Lvl (test code = Sodium Lvl) 140 135-145 [facility]2017-06-12 09:37:00 Test Item Value Reference Range Interpretation Comments Creatinine Lvl (test code = Creatinine 0.61 0.50-1.40 Lvl) [facility]2017-06-12 09:37:00 Test Item Value Reference Range Interpretation Comments Chloride Lvl (test code = Chloride Lvl) 106 95-109 [facility]2017-06-12 09:37:00 Test Item Value Reference Range Interpretation Comments Potassium Lvl (test code = Potassium 3.7 3.5-5.1 Lvl) [facility]2017-06-12 09:37:00 Test Item Value Reference Range Interpretation Comments CO2 (test code = CO2) 31 -32 [facility]2017-06-12 09:37:00 Test Item Value Reference Range Interpretation Comments Calcium Lvl (test code = Calcium Lvl) 8.4 8.5-10.5 [facility]2017-06-12 09:37:00 Test Item Value Reference Range Interpretation Comments AGAP (test code = AGAP) 6.7 10.0-20.0 [place] [id number] 09:37:00 Test Item Value Reference Range Interpretation Comments BUN (test code = BUN) 9 7-22 [facility]2017-06-12 09:37:00 Test Item Value Reference Range Interpretation Comments Glucose Lvl (test code = Glucose Lvl) 98 70-99 [facility] HospitalZiavxnwEETANSTWDV5739-41-26 09:37:00 Test Item Value Reference Range Interpretation Comments Hgb (test code = Hgb) 11.8 12.0-16.0 [facility] HospitalRaxlkkxYJUZILQBPE4845-23-39 09:37:00 Test Item Value Reference Range Interpretation Comments WBC (test code = WBC) 8.0 3.7-10.4 [facility] HospitalZpnzfrtARFYNRJQYO2751-71-24 09:37:00 Test Item Value Reference Range Interpretation Comments MCH (test code = MCH) 30.2 pg 27.0-31.0 [facility] HospitalHnhjclhMFNJKNWWPW6263-78-85 09:37:00 Test Item Value Reference Range Interpretation Comments RBC (test code = RBC) 3.90 4.20-5.40 [facility] HospitalRdmksjiISVXFSXHVI0976-21-84 09:37:00 Test Item Value Reference Range Interpretation Comments Hct (test code = Hct) 36.5 36.0-48.0 [facility] HospitalIsiwobhOLBTVSLCVM5422-49-41 09:37:00 Test Item Value Reference Range Interpretation Comments MCV (test code = MCV) 93.6 80.0-98.0 [facility] HospitalStjdfomWOEXXQZAHW1874-26-94 09:37:00 Test Item Value Reference Range Interpretation Comments RDW (test code = RDW) 14.7 11.5-14.5 [facility] HospitalRirovgdOICGNHXJHO1388-13-48 09:37:00 Test Item Value Reference Range Interpretation Comments MPV (test code = MPV) 6.6 7.4-10.4 [facility] HospitalPgdditsVOPVCCVSEU7011-80-23 09:37:00 Test Item Value Reference Range Interpretation Comments MCHC (test code = MCHC) 32.3 32.0-36.0 [facility] HospitalNrozazgLWESHFXPBY3521-33-27 09:37:00 Test Item Value Reference Range Interpretation Comments Platelet (test code = Platelet) 290 133-450 [facility] HospitalRkupeccROQVZKVRZK4437-98-42 09:37:00 Test Item Value Reference Range Interpretation Comments Basophils # (test code 0.0 See_Comment [Aut omated message] The = Basophils #) system which generated this result tra nsmitted reference range : <=0.2. The reference r markus was not used to int erpret this result as normal/abnormal . [facility] HospitalZskgsykWHQHKCRWYQ7224-57-00 09:37:00 Test Item Value Reference Range Interpretation Comments Monocytes (test code = Monocytes) 5.3 2.0-12.0 [facility] HospitalLohaepgQJEZEEGMRC2475-81-10 09:37:00 Test Item Value Reference Range Interpretation Comments Lymphocytes (test code = Lymphocytes) 28.2 20.0-40.0 [facility] HospitalDjfgsmqOVEQKTZMCJ9354-87-31 09:37:00 Test Item Value Reference Range Interpretation Comments Segs (test code = Segs) 64.9 45.0-75.0 [facility] HospitalEkumsmkZZKLGUDRKV3849-87-73 09:37:00 Test Item Value Reference Range Interpretation Comments Eosinophils (test code = 1.4 See_Comment [A utomated message] The Eosinophils) system which ge nerated this result tra nsmitted reference range : <=4.0. The reference r markus was not used to int erpret this result as normal/abnormal . [facility] HospitalErdxodsKZHODXHAQL2608-29-57 09:37:00 Test Item Value Reference Range Interpretation Comments Basophils (test code = 0.2 See_Comment [Aut omated message] The Basophils) system which ge nerated this result tra nsmitted reference range : <=1.0. The reference r markus was not used to int erpret this result as normal/abnormal . [facility] HospitalXjkmaczWJDLZFFGGY2649-50-31 09:37:00 Test Item Value Reference Range Interpretation Comments Lymphocytes # (test code = Lymphocytes 2.3 1.0-5.5 #) [facility] HospitalTidhlkxKKEUMFSKKY1844-42-54 09:37:00 Test Item Value Reference Range Interpretation Comments Eosinophils # (test code 0.1 See_Comment [A utomated message] The = Eosinophils #) system ic generated this result tra nsmitted reference range : <=0.5. The reference r markus was not used to int erpret this result as normal/abnormal . [facility] HospitalNtutevkEXZIAUARPM0859-94-84 09:37:00 Test Item Value Reference Range Interpretation Comments Segs-Bands # (test code = Segs-Bands #) 5.2 1.5-8.1 [facility]TemzqcsQFKKVUHNTG3496-06-91 09:37:00 Test Item Value Reference Range Interpretation Comments Monocytes # (test code 0.4 See_Comment [Aut omated message] The = Monocytes #) system which generated this result tra nsmitted reference range : <=0.8. The reference r markus was not used to int erpret this result as normal/abnormal . [facility]anoMOLECULAR [id number] 08:26:00 Test Item Value Reference Range Interpretation Comments C difficile DNA (test Positive code = C difficile DNA) 1*ABN*(10/10/16 3:26 AM) [facility]ann[id number] 08:26:00 Test Item Value Reference Range Interpretation Comments Fecal Leukocyte (test None Seen (10/10/16 code = Fecal Leukocyte) 3:26 AM) [facility] [id number] 04:11:00 Test Item Value Reference Range Interpretation Comments B/C Ratio (test code = B/C Ratio) 13 -25 [facility] [id number] 04:11:00 Test Item Value Reference Range Interpretation Comments AGAP (test code = AGAP) 10.6 10.0-20.0 [facility] [id number] 04:11:00 Test Item Value Reference Range Interpretation Comments Globulin (test code = Globulin) 3.7 2.7-4.2 [facility]2017-06-12 04:11:00 Test Item Value Reference Range Interpretation Comments A/G Ratio (test code = A/G Ratio) 1.1 0.7-1.6 [facility] [id number] 04:11:00 Test Item Value Reference Range Interpretation Comments Bili Total (test code = Bili Total) 0.2 0.2-1.3 [facility]anoRADEUM [id number] 04:11:00 Test Item Value Reference Range Interpretation Comments AST (test code = AST) 13 See_Comment [Auto mated message] The system which ge nerated this result transmit francine reference range : <=37. The reference range was not used to interpr et this result as angel l/abnormal. [facility]anoRADEUM [id number] 04:11:00 Test Item Value Reference Range Interpretation Comments Alk Phos (test code = Alk Phos) 110 39-136 [facility]2017-06-12 04:11:00 Test Item Value Reference Range Interpretation Comments eGFR (test code = eGFR) 82 [facility]2017-06-12 04:11:00 Test Item Value Reference Range Interpretation Comments Creatinine Lvl (test code = Creatinine 0.86 0.50-1.40 Lvl) [facility]2017-06-12 04:11:00 Test Item Value Reference Range Interpretation Comments CO2 (test code = CO2) 34 24-32 [facility]2017-06-12 04:11:00 Test Item Value Reference Range Interpretation Comments Calcium Lvl (test code = Calcium Lvl) 9.5 8.5-10.5 [facility]2017-06-12 04:11:00 Test Item Value Reference Range Interpretation Comments Glucose Lvl (test code = Glucose Lvl) 125 70-99 [facility]2017-06-12 04:11:00 Test Item Value Reference Range Interpretation Comments BUN (test code = BUN) 11 7-22 [facility]2017-06-12 04:11:00 Test Item Value Reference Range Interpretation Comments Potassium Lvl (test code = Potassium 3.6 3.5-5.1 Lvl) [facility]2017-06-12 04:11:00 Test Item Value Reference Range Interpretation Comments Sodium Lvl (test code = Sodium Lvl) 140 135-145 [facility]2017-06-12 04:11:00 Test Item Value Reference Range Interpretation Comments Chloride Lvl (test code = Chloride Lvl) 99 95-109 [facility]2017-06-12 04:11:00 Test Item Value Reference Range Interpretation Comments Total Protein (test code = Total 7.8 6.4-8.4 Protein) [facility]2017-06-12 04:11:00 Test Item Value Reference Range Interpretation Comments Albumin Lvl (test code = Albumin Lvl) 4.1 3.5-5.0 [facility]2017-06-12 04:11:00 Test Item Value Reference Range Interpretation Comments ALT (test code = ALT) 18 See_Comment [Auto mated message] The system which ge nerated this result transmit francine reference range : <=65. The reference range was not used to interpr et this result as angel l/abnormal. [place] [id number] 04:11:00 Test Item Value Reference Range Interpretation Comments hCG Tot (test code = hCG Tot) no gt [facility] HospitalTorwgxrSNXFYZPHIA6275-12-79 04:11:00 Test Item Value Reference Range Interpretation Comments Segs-Bands # (test code = Segs-Bands #) 7.5 1.5-8.1 [facility] HospitalKparopuVDARNVFSXM3178-89-09 04:11:00 Test Item Value Reference Range Interpretation Comments Segs (test code = Segs) 67.9 45.0-75.0 [facility] HospitalIiqtkzzAIYPJMSXCQ4134-73-22 04:11:00 Test Item Value Reference Range Interpretation Comments Eosinophils (test code = 1.4 See_Comment [A utomated message] The Eosinophils) system which ge nerated this result tra nsmitted reference range : <=4.0. The reference r markus was not used to int erpret this result as normal/abnormal . [facility] HospitalYiwszxtMEAAEKETYC6766-33-41 04:11:00 Test Item Value Reference Range Interpretation Comments Monocytes (test code = Monocytes) 4.5 2.0-12.0 [facility] HospitalJdmkywiVVRPPKNQGT6776-82-94 04:11:00 Test Item Value Reference Range Interpretation Comments Basophils (test code = 0.3 See_Comment [Aut omated message] The Basophils) system which ge nerated this result tra nsmitted reference range : <=1.0. The reference r markus was not used to int erpret this result as normal/abnormal . [facility] HospitalUslguemFJBAQSPDZN9185-79-90 04:11:00 Test Item Value Reference Range Interpretation Comments Lymphocytes (test code = Lymphocytes) 25.9 20.0-40.0 [facility] HospitalTczsqqrDVRRXOVJBN4429-30-58 04:11:00 Test Item Value Reference Range Interpretation Comments Eosinophils # (test code 0.2 See_Comment [A utomated message] The = Eosinophils #) system whic h generated this result tra nsmitted reference range : <=0.5. The reference r markus was not used to int erpret this result as normal/abnormal . [facility] HospitalWykeueuIIGAYUMXZA5498-18-78 04:11:00 Test Item Value Reference Range Interpretation Comments Lymphocytes # (test code = Lymphocytes 2.9 1.0-5.5 #) [facility] HospitalEgpkxzdNTRIFGFTCQ5554-52-46 04:11:00 Test Item Value Reference Range Interpretation Comments Monocytes # (test code 0.5 See_Comment [Aut omated message] The = Monocytes #) system which generated this result tra nsmitted reference range : <=0.8. The reference r markus was not used to int erpret this result as normal/abnormal . [facility] HospitalCanpexlTPLCRLZPTN1907-36-48 04:11:00 Test Item Value Reference Range Interpretation Comments Basophils # (test code 0.0 See_Comment [Aut omated message] The = Basophils #) system which generated this result tra nsmitted reference range : <=0.2. The reference r markus was not used to int erpret this result as normal/abnormal . [facility] HospitalSlvhfskCMVJIQFKEC0944-72-53 04:11:00 Test Item Value Reference Range Interpretation Comments MCHC (test code = MCHC) 32.7 32.0-36.0 [facility] HospitalGiuurvpDSCIDAHYGI8987-80-92 04:11:00 Test Item Value Reference Range Interpretation Comments MCH (test code = MCH) 30.5 pg 27.0-31.0 [facility] HospitalKtrbvqeDOQIVOUHLB3446-65-33 04:11:00 Test Item Value Reference Range Interpretation Comments RBC (test code = RBC) 4.68 4.20-5.40 [facility] HospitalKatmkoiLAZFIFQLJM7612-06-27 04:11:00 Test Item Value Reference Range Interpretation Comments WBC (test code = WBC) 11.1 3.7-10.4 [facility]HfgpcqhZUMMNSHOBL9903-12-27 04:11:00 Test Item Value Reference Range Interpretation Comments MCV (test code = MCV) 93.4 80.0-98.0 [facility] HospitalIfeajoxFRJDJMOTOS1168-78-09 04:11:00 Test Item Value Reference Range Interpretation Comments Hgb (test code = Hgb) 14.3 12.0-16.0 [facility] Hospit[id number] 04:11:00 Test Item Value Reference Range Interpretation Comments Hct (test code = Hct) 43.7 36.0-48.0 [facility] HospitalNyrvyioGYXKYNAHOP3797-85-64 04:11:00 Test Item Value Reference Range Interpretation Comments Platelet (test code = Platelet) 396 133-450 [facility] HospitalVfegzdiQLBLVAZMUP4470-09-07 04:11:00 Test Item Value Reference Range Interpretation Comments RDW (test code = RDW) 14.9 11.5-14.5 [facility] HospitalEcusqcxIENNZKCGUM2388-85-82 04:11:00 Test Item Value Reference Range Interpretation Comments MPV (test code = MPV) 7.0 7.4-10.4 [facility] [id number] 04:11:00 Test Item Value Reference Range Interpretation Comments UA Spec Grav (test code = UA Spec Grav) 1.020 [facility] AND [id number] 04:11:00 Test Item Value Reference Range Interpretation Comments UA Urobilinogen (test code = UA <=1.0 mg/dL 0.1-1.0 Urobilinogen) [facility] AND [id number] 04:11:00 Test Item Value Reference Range Interpretation Comments UA Trans Epi (test code = UA Trans Epi) 4 [facility] AND [id number] 04:11:00 Test Item Value Reference Range Interpretation Comments UA Leuk Est (test Negative (10/09/16 11:11 code = UA Leuk Est) PM) [facility] AND [id number] 04:11:00 Test Item Value Reference Range Interpretation Comments UA Ketones (test code = UA Negative mg/dL Ketones) [facility] AND [id number] 04:11:00 Test Item Value Reference Range Interpretation Comments UA Blood (test code = Negative (10/09/16 11:11 UA Blood) PM) [facility] AND [id number] 04:11:00 Test Item Value Reference Range Interpretation Comments UA Bili (test code = Negative *NA*(10/09/16 UA Bili) 11:11 PM) [facility] AND [id number] 04:11:00 Test Item Value Reference Range Interpretation Comments UA Nitrite (test code Negative (10/09/16 11:11 = UA Nitrite) PM) [facility] AND [id number] 04:11:00 Test Item Value Reference Range Interpretation Comments UA Sq Epi (test code = UA Sq Occasional /LPF Epi) [facility] AND [id number] 04:11:00 Test Item Value Reference Range Interpretation Comments UA RBC (test code = 2 See_Comment [Automa francine message] The UA RBC) system which ge nerated this result transmit francine reference range : <=2. The reference range was not used to interpr et this result as angel l/abnormal. [facility] [id number] 04:11:00 Test Item Value Reference Range Interpretation Comments UA Mucus (test code = UA Mucus) Few /LPF [facility] [id number] 04:11:00 Test Item Value Reference Range Interpretation Comments UA Hyal Cast (test 4 See_Comment [Automat ed message] The code = UA Hyal Cast) system which generated this result transmit francine reference range : <=2. The reference range was not used to interpr et this result as angel l/abnormal. [facility] [id number] 04:11:00 Test Item Value Reference Range Interpretation Comments UA Amorph Priti (test code = Occasional /HPF UA Amorph Priti) [facility] [id number] 04:11:00 Test Item Value Reference Range Interpretation Comments UA Turbidity (test code Marked *ABN*(10/09/16 = UA Turbidity) 11:11 PM) [facility] AND [id number] 04:11:00 Test Item Value Reference Range Interpretation Comments UA Color (test code = Dark Yellow UA Color) *NA*(10/09/16 11:11 PM) [facility] AND [id number] 04:11:00 Test Item Value Reference Range Interpretation Comments UA pH (test code = UA pH) 8.0 5.0-8.0 [facility] [id number] 04:11:00 Test Item Value Reference Range Interpretation Comments UA Glucose (test code = UA Negative mg/dL Glucose) [facility] AND [id number] 04:11:00 Test Item Value Reference Range Interpretation Comments UA Protein (test code = UA Protein) 100 mg/dL [facility] ABDOMEN/PELVIS [id number] 14:26:[address] [id number] IMAGING REPORTPat ient Name: ROSELYNFELISAManuel of Service: [id number]: 45 Sex: F Order #: [id number] Room: ERSDOB: 1970 X-Ray Number: [id number] Record Number: [id number] Hospital Number: [id number] Physician: KISHAN MUNOZ -Ordering Physician: HERNANDEZ MONTEMAYOR [...] authenticated by TIFFANIE Espinosa 2016-07-26 14:23:48CT ABDOMEN/PELVIS [id number] 02:49:[address] [id number] IMAGING REPORTPatient Name: Manuel DEL TORO of Service: [id number]: 45 Sex: F Order #: [id number] Room: [facility]/ A 2NEDOB: 1970 X-Ray Number: [id number] Record Number: [id number] Hospital Number: [id number] Physician: BLAKE ALLEN -Ordering Physician: AURORA LOWERY [...] colitis. The appearance is nonspecific.Electronically Signed By: Sylvani Galo M.D., 07/17/2016 2:47 AMLegally authenticated by MARTINEZ VALDEZ 2016-07-17 02:47:19ABDOMEN 2 VIEWS 2016-07-15 12:14:[address] IMAG[address] REPORTPatient Name: Manuel DEL TORO of Service: [id number]: 45 Sex: F Order #: [id number] [facility] 1970 [facility] Number: [id number] Record Number: [id number] Hospital Number: [id number] Physician: [place] TEJEDA Physician: Elvis GARCIA 2 [...] 12:12 PMLegally authenticated by RAFA GALVAN 2016-07-15 12:12:28[id number] 19:01:00 Test Item Value Reference Range Interpretation Comments Lactic Acid Lvl (test code = Lactic 2.1 0.5-2.2 Acid Lvl) [facility]2016-10-12 19:01:00 Test Item Value Reference Range Interpretation Comments eGFR (test code = eGFR) 97 [facility]2016-10-12 19:01:00 Test Item Value Reference Range Interpretation Comments Bili Total (test code = Bili Total) 0.3 0.2-1.3 [place] 130566-10-12 19:01:00 Test Item Value Reference Range Interpretation Comments Alk Phos (test code = Alk Phos) 98 39-136 [facility]2016-10-12 19:01:00 Test Item Value Reference Range Interpretation Comments AST (test code = AST) 24 See_Comment [Auto mated message] The system which ge nerated this result transmit francine reference range : <=37. The reference range was not used to interpr et this result as angel l/abnormal. [facility]2016-10-12 19:01:00 Test Item Value Reference Range Interpretation Comments ALT (test code = ALT) 24 See_Comment [Auto mated message] The system which ge nerated this result transmit francine reference range : <=65. The reference range was not used to interpr et this result as angel l/abnormal. [facility]2016-10-12 19:01:00 Test Item Value Reference Range Interpretation Comments Potassium Lvl (test code = Potassium 4.3 3.5-5.1 Lvl) [facility]2016-10-12 19:01:00 Test Item Value Reference Range Interpretation Comments Creatinine Lvl (test code = Creatinine 0.75 0.50-1.40 Lvl) [facility]2016-10-12 19:01:00 Test Item Value Reference Range Interpretation Comments Sodium Lvl (test code = Sodium Lvl) 137 135-145 [facility]2016-10-12 19:01:00 Test Item Value Reference Range Interpretation Comments Glucose Lvl (test code = Glucose Lvl) 91 70-99 [facility]2016-10-12 19:01:00 Test Item Value Reference Range Interpretation Comments BUN (test code = BUN) 8 7-22 [facility]2016-10-12 19:01:00 Test Item Value Reference Range Interpretation Comments Albumin Lvl (test code = Albumin Lvl) 3.2 3.5-5.0 [facility]2016-10-12 19:01:00 Test Item Value Reference Range Interpretation Comments Total Protein (test code = Total 7.6 6.4-8.4 Protein) [facility]2016-10-12 19:01:00 Test Item Value Reference Range Interpretation Comments CO2 (test code = CO2) 26 24-32 [facility]2016-10-12 19:01:00 Test Item Value Reference Range Interpretation Comments Calcium Lvl (test code = Calcium Lvl) 8.4 8.5-10.5 [facility]2016-10-12 19:01:00 Test Item Value Reference Range Interpretation Comments Chloride Lvl (test code = Chloride Lvl) 104 95-109 [facility]2016-10-12 19:01:00 Test Item Value Reference Range Interpretation Comments AGAP (test code = AGAP) 11.3 10.0-20.0 [facility]2016-10-12 19:01:00 Test Item Value Reference Range Interpretation Comments A/G Ratio (test code = A/G Ratio) 0.7 0.7-1.6 [facility]2016-10-12 19:01:00 Test Item Value Reference Range Interpretation Comments Globulin (test code = Globulin) 4.4 2.7-4.2 [facility]2016-10-12 19:01:00 Test Item Value Reference Range Interpretation Comments B/C Ratio (test code = B/C Ratio) 11 6-25 [facility] HospitalH[id number] 19:01:00 Test Item Value Reference Range Interpretation Comments MPV (test code = MPV) 7.0 7.4-10.4 [facility] HospitalOfndbxlYFBCHCGQDJ8213-05-79 19:01:00 Test Item Value Reference Range Interpretation Comments Platelet (test code = Platelet) 340 133-450 [facility] HospitalAoplduuYHQKZZCNDH2159-90-88 19:01:00 Test Item Value Reference Range Interpretation Comments RDW (test code = RDW) 13.9 11.5-14.5 [facility] HospitalJfmcmclPANFKNNJCB8545-30-13 19:01:00 Test Item Value Reference Range Interpretation Comments MCH (test code = MCH) 30.2 pg 27.0-31.0 [facility] HospitalQlmfumdPBUCVPLYJV3056-65-53 19:01:00 Test Item Value Reference Range Interpretation Comments MCHC (test code = MCHC) 33.4 32.0-36.0 [facility] HospitalBdjzwsbNMSLXJXPIE7190-97-03 19:01:00 Test Item Value Reference Range Interpretation Comments WBC (test code = WBC) 11.0 3.7-10.4 [facility] Hos[id number] 19:01:00 Test Item Value Reference Range Interpretation Comments MCV (test code = MCV) 90.4 80.0-98.0 [facility] HospitalEjpkdfbVWFFKWSDXY1215-14-14 19:01:00 Test Item Value Reference Range Interpretation Comments Hct (test code = Hct) 43.3 36.0-48.0 [facility] HospitalLerqdjzVXIBIKJVZQ4335-42-00 19:01:00 Test Item Value Reference Range Interpretation Comments Hgb (test code = Hgb) 14.5 12.0-16.0 [facility] HospitalCtmuphtJUWXZINEBP5565-61-35 19:01:00 Test Item Value Reference Range Interpretation Comments RBC (test code = RBC) 4.79 4.20-5.40 [facility] HospitalYidzdpcIAXOJPZUNT3532-67-30 19:01:00 Test Item Value Reference Range Interpretation Comments Basophils (test code = 0.9 See_Comment [Aut omated message] The Basophils) system which ge nerated this result tra nsmitted reference range : <=1.0. The reference r markus was not used to int erpret this result as normal/abnormal . [facility] HospitalTwvarznYJPUWFZEOJ7558-63-77 19:01:00 Test Item Value Reference Range Interpretation Comments Segs-Bands # (test code = Segs-Bands #) 7.4 1.5-8.1 [facility] HospitalHyauhoyGGRPFIKAUM5801-55-08 19:01:00 Test Item Value Reference Range Interpretation Comments Eosinophils (test code = 1.6 See_Comment [A utomated message] The Eosinophils) system which ge nerated this result tra nsmitted reference range : <=4.0. The reference r markus was not used to int erpret this result as normal/abnormal . [facility] HospitalWaphokeEBQULSEPOQ2036-03-27 19:01:00 Test Item Value Reference Range Interpretation Comments Monocytes (test code = Monocytes) 5.0 2.0-12.0 [facility] HospitalOeibowcCKLOIPOMLR3475-18-08 19:01:00 Test Item Value Reference Range Interpretation Comments Lymphocytes (test code = Lymphocytes) 25.2 20.0-40.0 [facility] HospitalOieytjkCAYRMRMPCJ1763-94-03 19:01:00 Test Item Value Reference Range Interpretation Comments Eosinophils # (test code 0.2 See_Comment [A utomated message] The = Eosinophils #) system whic h generated this result tra nsmitted reference range : <=0.5. The reference r markus was not used to int erpret this result as normal/abnormal . [facility] HospitalVffppwxKCYRWPPNYE4503-38-04 19:01:00 Test Item Value Reference Range Interpretation Comments Basophils # (test code 0.1 See_Comment [Aut omated message] The = Basophils #) system which generated this result tra nsmitted reference range : <=0.2. The reference r markus was not used to int erpret this result as normal/abnormal . [facility] HospitalLxdjuvdOCPJPFZNFJ7631-28-27 19:01:00 Test Item Value Reference Range Interpretation Comments Monocytes # (test code 0.6 See_Comment [Aut omated message] The = Monocytes #) system which generated this result tra nsmitted reference range : <=0.8. The reference r markus was not used to int erpret this result as normal/abnormal . [facility] HospitalBxlgmqnQOVXGXGNWI1592-44-26 19:01:00 Test Item Value Reference Range Interpretation Comments Lymphocytes # (test code = Lymphocytes 2.8 1.0-5.5 #) [facility] HospitalMrpqfbrXCAMIBCQXX5980-20-37 19:01:00 Test Item Value Reference Range Interpretation Comments Segs (test code = Segs) 67.3 45.0-75.0 [facility] [id number] 15:41:00 Test Item Value Reference Range Interpretation Comments UA Sq Epi (test code = UA Sq Epi) Few /LPF [facility] AND [id number] 15:41:00 Test Item Value Reference Range Interpretation Comments UA WBC (test code = UA WBC) 3-5 /HPF [facility] AND [id number] 15:41:00 Test Item Value Reference Range Interpretation Comments UA Bacteria (test code = UA Few /HPF Bacteria) [facility] AND [id number] 15:41:00 Test Item Value Reference Range Interpretation Comments UA RBC (test code = 0-2 /HPF See_Comment [Automa francine message] The UA RBC) system which ge nerated this result tra nsmitted reference range : <=2. The reference range was not used to interpr et this result as angel l/abnormal. [facility] AND [id number] 15:41:00 Test Item Value Reference Range Interpretation Comments UA Mucus (test code = None Seen (08/13/14 UA Mucus) 10:41 AM) [facility] AND [id number] 15:41:00 Test Item Value Reference Range Interpretation Comments UA Protein (test code = Trace *ABN*(08/13/14 UA Protein) 10:41 AM) [facility] AND [id number] 15:41:00 Test Item Value Reference Range Interpretation Comments UA Glucose (test code Negative (08/13/14 10:41 = UA Glucose) AM) [facility] AND [id number] 15:41:00 Test Item Value Reference Range Interpretation Comments UA Ketones (test code Negative *NA*(08/13/14 = UA Ketones) 10:41 AM) [facility] AND [id number] 15:41:00 Test Item Value Reference Range Interpretation Comments UA Bili (test code = Negative *NA*(08/13/14 UA Bili) 10:41 AM) [facility] AND [id number] 15:41:00 Test Item Value Reference Range Interpretation Comments UA Urobilinogen (test code = UA 0.2 0.1-1.0 Urobilinogen) [facility] AND [id number] 15:41:00 Test Item Value Reference Range Interpretation Comments UA Nitrite (test code Negative (08/13/14 10:41 = UA Nitrite) AM) [facility] AND [id number] 15:41:00 Test Item Value Reference Range Interpretation Comments UA Leuk Est (test code Small *ABN*(08/13/14 = UA Leuk Est) 10:41 AM) [facility] AND [id number] 15:41:00 Test Item Value Reference Range Interpretation Comments UA Blood (test code = Negative (08/13/14 10:41 UA Blood) AM) [facility] AND [id number] 15:41:00 Test Item Value Reference Range Interpretation Comments UA Spec Grav (test >=1.030 *ABN*(08/13/14 code = UA Spec Grav) 10:41 AM) [facility] AND [id number] 15:41:00 Test Item Value Reference Range Interpretation Comments UA pH (test code = UA pH) 6.0 1 5.0-8.0 [facility] AND [id number] 15:41:00 Test Item Value Reference Range Interpretation Comments UA Color (test code = Yellow *NA*(08/13/14 UA Color) 10:41 AM) [facility] AND [id number] 15:41:00 Test Item Value Reference Range Interpretation Comments UA Turbidity (test code = Clear (08/13/14 10:41 UA Turbidity) AM) [facility]2015-04-15 12:37:00 Test Item Value Reference Range Interpretation Comments eGFR (test code = eGFR) 70 [facility]2015-04-15 12:37:00 Test Item Value Reference Range Interpretation Comments Sodium Lvl (test code = Sodium Lvl) 140 135-145 [facility]2015-04-15 12:37:00 Test Item Value Reference Range Interpretation Comments Creatinine Lvl (test code = Creatinine 1.0 0.5-1.4 Lvl) [facility]2015-04-15 12:37:00 Test Item Value Reference Range Interpretation Comments BUN (test code = BUN) 29 7-22 [facility]2015-04-15 12:37:00 Test Item Value Reference Range Interpretation Comments Potassium Lvl (test code = Potassium 2.7 3.5-5.1 Lvl) [facility]2015-04-15 12:37:00 Test Item Value Reference Range Interpretation Comments Glucose Lvl (test code = Glucose Lvl) 64 70-99 [facility]2015-04-15 12:37:00 Test Item Value Reference Range Interpretation Comments Bili Total (test code = Bili Total) 0.7 0.2-1.3 [facility]2015-04-15 12:37:00 Test Item Value Reference Range Interpretation Comments Alk Phos (test code = Alk Phos) 82 39-136 [facility]2015-04-15 12:37:00 Test Item Value Reference Range Interpretation Comments AST (test code = AST) 24 See_Comment [Auto mated message] The system which ge nerated this result transmit francine reference range : <=37. The reference range was not used to interpr et this result as angel l/abnormal. [facility]2015-04-15 12:37:00 Test Item Value Reference Range Interpretation Comments Albumin Lvl (test code = Albumin Lvl) 4.2 3.5-5.0 [facility]2015-04-15 12:37:00 Test Item Value Reference Range Interpretation Comments B/C Ratio (test code = B/C Ratio) 29 6-25 [facility]2015-04-15 12:37:00 Test Item Value Reference Range Interpretation Comments ALT (test code = ALT) 26 See_Comment [Auto mated message] The system which ge nerated this result transmit francine reference range : <=65. The reference range was not used to interpr et this result as angel l/abnormal. [facility]2015-04-15 12:37:00 Test Item Value Reference Range Interpretation Comments Calcium Lvl (test code = Calcium Lvl) 9.0 8.5-10.5 [facility]2015-04-15 12:37:00 Test Item Value Reference Range Interpretation Comments AGAP (test code = AGAP) 8.7 10.0-20.0 [facility]2015-04-15 12:37:00 Test Item Value Reference Range Interpretation Comments CO2 (test code = CO2) 29 24-32 [facility]2015-04-15 12:37:00 Test Item Value Reference Range Interpretation Comments Chloride Lvl (test code = Chloride Lvl) 105 95-109 [facility]2015-04-15 12:37:00 Test Item Value Reference Range Interpretation Comments A/G Ratio (test code = A/G Ratio) 1.2 0.7-1.6 [facility] [id number] 12:37:00 Test Item Value Reference Range Interpretation Comments Globulin (test code = Globulin) 3.5 2.0-4.0 [facility] [id number] 12:37:00 Test Item Value Reference Range Interpretation Comments Total Protein (test code = Total 7.7 6.4-8.4 Protein) [facility]JtrwpwdUUBISCXFVZ4594-02-43 12:37:00 Test Item Value Reference Range Interpretation Comments RDW (test code = RDW) 14.1 11.5-14.5 [facility] HospitalAdeunrbQJLSNMLBZA7894-25-92 12:37:00 Test Item Value Reference Range Interpretation Comments MCH (test code = MCH) 30.5 pg 27.0-31.0 [facility] HospitalUoprvdxNEQMZEMUES3060-76-76 12:37:00 Test Item Value Reference Range Interpretation Comments MCHC (test code = MCHC) 33.3 32.0-36.0 [facility] HospitalZptfsemCVKILSALCJ2810-58-83 12:37:00 Test Item Value Reference Range Interpretation Comments MPV (test code = MPV) 6.7 7.4-10.4 [facility] HospitalMgnfduyMQPLQWUVQA4955-92-33 12:37:00 Test Item Value Reference Range Interpretation Comments Platelet (test code = Platelet) 256 133-450 [facility] HospitalWyuvjstWEBHIJDRZJ1724-37-22 12:37:00 Test Item Value Reference Range Interpretation Comments MCV (test code = MCV) 91.6 80.0-98.0 [facility] HospitalIzqdojpAIIEVZCCMX8220-84-79 12:37:00 Test Item Value Reference Range Interpretation Comments Hct (test code = Hct) 40.4 36.0-48.0 [facility] HospitalJajlhooICJWVIWGIQ0443-96-75 12:37:00 Test Item Value Reference Range Interpretation Comments Hgb (test code = Hgb) 13.4 12.0-16.0 [facility] HospitalAznpssuZUXOHJPWSP9594-10-33 12:37:00 Test Item Value Reference Range Interpretation Comments WBC (test code = WBC) 8.0 3.7-10.4 [facility] HospitalPurivrdLXPAFEWFLL7654-85-45 12:37:00 Test Item Value Reference Range Interpretation Comments RBC (test code = RBC) 4.41 4.20-5.40 [facility] HospitalDkujvkgJWCYJNULHZ8083-87-28 12:37:00 Test Item Value Reference Range Interpretation Comments Basophils # (test code 0.0 See_Comment [Aut omated message] The = Basophils #) system which generated this result tra nsmitted reference range : <=0.2. The reference r markus was not used to int erpret this result as normal/abnormal . [facility] HospitalHyebxqaAHNZVKRRQE1051-18-04 12:37:00 Test Item Value Reference Range Interpretation Comments Lymphocytes # (test code = Lymphocytes 2.4 1.0-5.5 #) [facility] HospitalBjmizbdXVTXCSIEUU9623-48-22 12:37:00 Test Item Value Reference Range Interpretation Comments Segs-Bands # (test code = Segs-Bands #) 4.9 1.5-8.1 [facility] HospitalMbcwnjpYNQZNICXTS5040-05-11 12:37:00 Test Item Value Reference Range Interpretation Comments Eosinophils # (test code 0.1 See_Comment [A utomated message] The = Eosinophils #) system whic h generated this result tra nsmitted reference range : <=0.5. The reference r markus was not used to int erpret this result as normal/abnormal . [facility] HospitalLtckjslSKRBRCDRKJ7930-81-17 12:37:00 Test Item Value Reference Range Interpretation Comments Monocytes # (test code 0.5 See_Comment [Aut omated message] The = Monocytes #) system which generated this result tra nsmitted reference range : <=0.8. The reference r markus was not used to int erpret this result as normal/abnormal . [facility] HospitalNmdjlumFABJMYKFXD1485-44-69 12:37:00 Test Item Value Reference Range Interpretation Comments Eosinophils (test code = 1.6 See_Comment [A utomated message] The Eosinophils) system which ge nerated this result tra nsmitted reference range : <=4.0. The reference r markus was not used to int erpret this result as normal/abnormal . [facility] HospitalYthhojpCVIFVCCQDQ9963-18-38 12:37:00 Test Item Value Reference Range Interpretation Comments Monocytes (test code = Monocytes) 6.5 2.0-12.0 [facility] HospitalDjwlvssEMQFXFKUQO9801-60-63 12:37:00 Test Item Value Reference Range Interpretation Comments Lymphocytes (test code = Lymphocytes) 30.0 20.0-40.0 [facility] HospitalJsxxxxfJFARHMDUGL5342-53-48 12:37:00 Test Item Value Reference Range Interpretation Comments Segs (test code = Segs) 61.6 45.0-75.0 [facility]AilisrtKNBKWENIBI1615-12-29 12:37:00 Test Item Value Reference Range Interpretation Comments Basophils (test code = 0.3 See_Comment [Aut omated message] The Basophils) system which ge nerated this result tra nsmitted reference range : <=1.0. The reference r markus was not used to int erpret this result as normal/abnormal . [facility]annCHEM [id number] 13:50:00 Test Item Value Reference Range Interpretation Comments Magnesium Lvl (test code = Magnesium 1.8 1.8-2.4 Lvl) [facility] AND [id number] 12:55:00 Test Item Value Reference Range Interpretation Comments UA Blood (test code = Negative (03/09/14 6:55 UA Blood) AM) [facility] AND [id number] 12:55:00 Test Item Value Reference Range Interpretation Comments UA Glucose (test code Negative (03/09/14 6:55 = UA Glucose) AM) [facility] AND [id number] 12:55:00 Test Item Value Reference Range Interpretation Comments UA Ketones (test code Negative *NA*(03/09/14 = UA Ketones) 6:55 AM) [facility] AND [id number] 12:55:00 Test Item Value Reference Range Interpretation Comments UA Bili (test code = Negative *NA*(03/09/14 UA Bili) 6:55 AM) [facility] AND [id number] 12:55:00 Test Item Value Reference Range Interpretation Comments UA Leuk Est (test code Large *ABN*(03/09/14 = UA Leuk Est) 6:55 AM) [facility] AND [id number] 12:55:00 Test Item Value Reference Range Interpretation Comments UA Urobilinogen (test code = UA 1.0 0.1-1.0 Urobilinogen) [facility] AND [id number] 12:55:00 Test Item Value Reference Range Interpretation Comments UA Nitrite (test code Negative (03/09/14 6:55 = UA Nitrite) AM) [facility] AND [id number] 12:55:00 Test Item Value Reference Range Interpretation Comments UA Spec Grav (test code = UA Spec 1.015 1 Grav) [facility] [id number] 12:55:00 Test Item Value Reference Range Interpretation Comments UA pH (test code = UA pH) 7.5 1 5.0-8.0 [facility] [id number] 12:55:00 Test Item Value Reference Range Interpretation Comments UA Protein (test code Negative (03/09/14 6:55 = UA Protein) AM) [facility] [id number] 12:55:00 Test Item Value Reference Range Interpretation Comments UA Turbidity (test code = Clear (03/09/14 6:55 UA Turbidity) AM) [facility] [id number] 12:55:00 Test Item Value Reference Range Interpretation Comments UA Color (test code = Yellow *NA*(03/09/14 UA Color) 6:55 AM) [facility] [id number] 12:55:00 Test Item Value Reference Range Interpretation Comments UA WBC (test code = UA WBC) 21-50 /HPF [facility] [id number] 12:55:00 Test Item Value Reference Range Interpretation Comments UA Sq Epi (test code = UA Sq Moderate /LPF Epi) [facility] [id number] 12:55:00 Test Item Value Reference Range Interpretation Comments UA Mucus (test code = UA Mucus) Few /LPF [facility] [id number] 12:55:00 Test Item Value Reference Range Interpretation Comments UA Amorph Priti (test code = UA Few /HPF Amorph Priti) [facility] [id number] 12:55:00 Test Item Value Reference Range Interpretation Comments UA RBC (test code = 3-5 /HPF See_Comment [Automa francine message] The UA RBC) system which ge nerated this result tra nsmitted reference range : <=2. The reference range was not used to interpr et this result as angel l/abnormal. [facility] [id number] 12:55:00 Test Item Value Reference Range Interpretation Comments UA Bacteria (test code = UA Moderate /HPF Bacteria) [facility] [id number] 12:55:00 Test Item Value Reference Range Interpretation Comments Lipase Lvl (test code = Lipase Lvl) 396 73-393 [facility]2014-11-09 12:55:00 Test Item Value Reference Range Interpretation Comments Amylase Lvl (test code = Amylase Lvl) 50 25-115 [facility]2014-11-09 12:55:00 Test Item Value Reference Range Interpretation Comments A/G Ratio (test code = A/G Ratio) 1.2 0.7-1.6 [facility]2014-11-09 12:55:00 Test Item Value Reference Range Interpretation Comments Globulin (test code = Globulin) 3.3 2.0-4.0 [facility]2014-11-09 12:55:00 Test Item Value Reference Range Interpretation Comments AST (test code = AST) 8 See_Comment [Auto mated message] The system which ge nerated this result transmit francine reference range : <=37. The reference range was not used to interpr et this result as angel l/abnormal. [facility]2014-11-09 12:55:00 Test Item Value Reference Range Interpretation Comments Alk Phos (test code = Alk Phos) 61 39-136 [facility]2014-11-09 12:55:00 Test Item Value Reference Range Interpretation Comments ALT (test code = ALT) 16 See_Comment [Auto mated message] The system which ge nerated this result transmit francine reference range : <=65. The reference range was not used to interpr et this result as angel l/abnormal. [facility]2014-11-09 12:55:00 Test Item Value Reference Range Interpretation Comments Calcium Lvl (test code = Calcium Lvl) 9.1 8.5-10.5 [facility]2014-11-09 12:55:00 Test Item Value Reference Range Interpretation Comments B/C Ratio (test code = B/C Ratio) 12 6-25 [facility]2014-11-09 12:55:00 Test Item Value Reference Range Interpretation Comments Total Protein (test code = Total 7.2 6.4-8.4 Protein) [facility]2014-11-09 12:55:00 Test Item Value Reference Range Interpretation Comments AGAP (test code = AGAP) 9.3 10.0-20.0 [place] [id number] 12:55:00 Test Item Value Reference Range Interpretation Comments Albumin Lvl (test code = Albumin Lvl) 3.9 3.5-5.0 [facility]2014-11-09 12:55:00 Test Item Value Reference Range Interpretation Comments Bili Total (test code = Bili Total) 0.9 0.2-1.3 [facility]2014-11-09 12:55:00 Test Item Value Reference Range Interpretation Comments eGFR (test code = eGFR) 79 [facility]2014-11-09 12:55:00 Test Item Value Reference Range Interpretation Comments Glucose Lvl (test code = Glucose Lvl) 106 70-99 [facility]2014-11-09 12:55:00 Test Item Value Reference Range Interpretation Comments BUN (test code = BUN) 11 7-22 [facility]2014-11-09 12:55:00 Test Item Value Reference Range Interpretation Comments Creatinine Lvl (test code = Creatinine 0.9 0.5-1.4 Lvl) [facility]2014-11-09 12:55:00 Test Item Value Reference Range Interpretation Comments Potassium Lvl (test code = Potassium 2.3 3.5-5.1 Lvl) [facility]2014-11-09 12:55:00 Test Item Value Reference Range Interpretation Comments Chloride Lvl (test code = Chloride Lvl) 104 95-109 [facility]2014-11-09 12:55:00 Test Item Value Reference Range Interpretation Comments CO2 (test code = CO2) 27 24-32 [facility]2014-11-09 12:55:00 Test Item Value Reference Range Interpretation Comments Sodium Lvl (test code = Sodium Lvl) 138 135-145 [id number] 12:55:00 Test Item Value Reference Range Interpretation Comments Monocytes # (test code 0.5 See_Comment [Aut omated message] The = Monocytes #) system which generated this result tra nsmitted reference range : <=0.8. The reference r markus was not used to int erpret this result as normal/abnormal . [facility] HospitalLzsccayYZZEDKUYIE5642-24-70 12:55:00 Test Item Value Reference Range Interpretation Comments Basophils (test code = 0.3 See_Comment [Aut omated message] The Basophils) system which ge nerated this result tra nsmitted reference range : <=1.0. The reference r markus was not used to int erpret this result as normal/abnormal . [facility] HospitalBdqhqxnYEWUPIIJMA6593-12-14 12:55:00 Test Item Value Reference Range Interpretation Comments Lymphocytes # (test code = Lymphocytes 2.3 1.0-5.5 #) [facility] HospitalZopfncyJVVHIAXGIU7481-13-25 12:55:00 Test Item Value Reference Range Interpretation Comments Segs-Bands # (test code = Segs-Bands #) 7.0 1.5-8.1 [facility] HospitalVdyusbbTLDVMPGHQI9230-23-59 12:55:00 Test Item Value Reference Range Interpretation Comments Eosinophils (test code = 0.3 See_Comment [A utomated message] The Eosinophils) system which ge nerated this result tra nsmitted reference range : <=4.0. The reference r markus was not used to int erpret this result as normal/abnormal . [facility] HospitalIvybzrvLPHHWYJWMR0983-87-44 12:55:00 Test Item Value Reference Range Interpretation Comments Eosinophils # (test code 0.0 See_Comment [A utomated message] The = Eosinophils #) system [facility] h generated this result tra nsmitted reference range : <=0.5. The reference r markus was not used to int erpret this result as normal/abnormal . [facility] HospitalGmhdwquIQANSUVYFE1193-86-74 12:55:00 Test Item Value Reference Range Interpretation Comments Basophils # (test code 0.0 See_Comment [Aut omated message] The = Basophils #) system which generated this result tra nsmitted reference range : <=0.2. The reference r markus was not used to int erpret this result as normal/abnormal . [facility] HospitalDvrrlxaRPDQHTZVLF8494-10-97 12:55:00 Test Item Value Reference Range Interpretation Comments Monocytes (test code = Monocytes) 4.6 2.0-12.0 [facility] HospitalGpnvmjrHVERIERRKE0927-51-23 12:55:00 Test Item Value Reference Range Interpretation Comments Lymphocytes (test code = Lymphocytes) 23.4 20.0-40.0 [facility] HospitalLtaievvQHFHZMWFNH5679-05-47 12:55:00 Test Item Value Reference Range Interpretation Comments Segs (test code = Segs) 71.4 45.0-75.0 [facility] HospitalKitnukzHVLUOTBIOJ9561-92-50 12:55:00 Test Item Value Reference Range Interpretation Comments INR (test code = INR) 1.08 0.85-1.17 [facility] HospitalCpdgzpsMRWNOEKNSN9836-89-64 12:55:00 Test Item Value Reference Range Interpretation Comments PTT (test code = PTT) 28.7 s 22.9-35.8 [facility] HospitalRbaxawyXEOKLLRMBF2738-48-59 12:55:00 Test Item Value Reference Range Interpretation Comments PT (test code = PT) 14.0 s 12.0-14.7 [facility] HospitalUdeqoulMCAPUPOPWD2168-50-82 12:55:00 Test Item Value Reference Range Interpretation Comments Hct (test code = Hct) 45.4 36.0-48.0 [facility] HospitalJeujlraMGMEYEJLGW2786-17-98 12:55:00 Test Item Value Reference Range Interpretation Comments MCV (test code = MCV) 94.6 80.0-98.0 [facility] HospitalBcqmilkKLLQIPCUHC9519-23-23 12:55:00 Test Item Value Reference Range Interpretation Comments RBC (test code = RBC) 4.80 4.20-5.40 [facility] HospitalEgbyxwoKXSZEXJOLU9815-18-61 12:55:00 Test Item Value Reference Range Interpretation Comments Hgb (test code = Hgb) 15.2 12.0-16.0 [facility] HospitalVquepyrUIFHFIDZOX3307-87-95 12:55:00 Test Item Value Reference Range Interpretation Comments WBC (test code = WBC) 9.9 3.7-10.4 [facility] HospitalQyytcumOLGBHQHDPD1803-00-91 12:55:00 Test Item Value Reference Range Interpretation Comments Platelet (test code = Platelet) 256 133-450 [facility] HospitalPkiojbpHRSTZVMFAF0987-31-31 12:55:00 Test Item Value Reference Range Interpretation Comments MPV (test code = MPV) 7.5 7.4-10.4 [facility] HospitalGpknurrZAUUPSRJZA7755-58-87 12:55:00 Test Item Value Reference Range Interpretation Comments RDW (test code = RDW) 13.7 11.5-14.5 [facility] HospitalPaxncycAUORMOKXXY9404-67-17 12:55:00 Test Item Value Reference Range Interpretation Comments MCH (test code = MCH) 31.7 pg 27.0-31.0 [facility] HospitalVsuywoxAPLJXQALTM6030-45-22 12:55:00 Test Item Value Reference Range Interpretation Comments MCHC (test code = MCHC) 33.5 32.0-36.0 [facility]XujtyeyDBXWCUUSKM3617-20-99 12:55:00 Test Item Value Reference Range Interpretation Comments CDC HIV 4th GEN (test Negative (03/09/14 6:55 code = CDC HIV 4th AM) GEN) [facility]YfgbzbdYQZHRMVNFIEW5105-24-66 16:00:00 Test Item Value Reference Range Interpretation Comments Potassium Lvl (test code = Potassium 2.9 3.5-5.1 Lvl) [facility]awRsiarbcGTZAAJLOGHXH7271-90-50 16:00:00 Test Item Value Reference Range Interpretation Comments Creatinine Lvl (test code = Creatinine 0.9 0.5-1.4 Lvl) [facility]awWakjzhaONYCZRAHXEYL2085-35-25 16:00:00 Test Item Value Reference Range Interpretation Comments Sodium Lvl (test code = Sodium Lvl) 143 135-145 [facility]awAlyeoxeSUOMUNDJZYJH7601-51-36 16:00:00 Test Item Value Reference Range Interpretation Comments BUN (test code = BUN) 11 7-22 [facility]awKekpfcsKKSDGMEYMVYX3433-44-88 16:00:00 Test Item Value Reference Range Interpretation Comments Glucose Lvl (test code = Glucose Lvl) 89 70-99 [facility]awZuijxqqMMMISSABOWZL5832-22-06 16:00:00 Test Item Value Reference Range Interpretation Comments AST (test code = AST) 13 See_Comment [Auto mated message] The system which ge nerated this result transmit francine reference range : <=37. The reference range was not used to interpr et this result as angel l/abnormal. [facility]awVoybtdsQWQCVIKZEBGK8711-94-64 16:00:00 Test Item Value Reference Range Interpretation Comments Alk Phos (test code = Alk Phos) 76 39-136 [facility]awPdgnfxdKVWUSUOZUTLO9322-04-33 16:00:00 Test Item Value Reference Range Interpretation Comments Bili Total (test code = Bili Total) 0.4 0.2-1.3 [facility]awQjhksvtFSTPPNBDTKMA4840-26-67 16:00:00 Test Item Value Reference Range Interpretation Comments Globulin (test code = Globulin) 2.9 2.0-4.0 [facility]awEksipyuYOSXYAJEYVJN1404-18-34 16:00:00 Test Item Value Reference Range Interpretation Comments A/G Ratio (test code = A/G Ratio) 1.2 0.7-1.6 [facility]awVfpkwrhTRQKRBTFWOTY9122-03-10 16:00:00 Test Item Value Reference Range Interpretation Comments ALT (test code = ALT) 16 See_Comment [Auto mated message] The system which ge nerated this result transmit francine reference range : <=65. The reference range was not used to interpr et this result as angel l/abnormal. [facility]awIzbopkpYAUJFCCQUYEY7819-94-18 16:00:00 Test Item Value Reference Range Interpretation Comments B/C Ratio (test code = B/C Ratio) 12 6-25 [facility]awWzcexepJQJDVVSDLFWK2438-36-44 16:00:00 Test Item Value Reference Range Interpretation Comments Albumin Lvl (test code = Albumin Lvl) 3.6 3.5-5.0 [facility]awEyszuciQNDJTNZVUXGP0857-13-99 16:00:00 Test Item Value Reference Range Interpretation Comments Total Protein (test code = Total 6.5 6.4-8.4 Protein) [facility]awIbkmhabSVABQNCJGDQZ9398-36-82 16:00:00 Test Item Value Reference Range Interpretation Comments CO2 (test code = CO2) 20 24-32 [facility]awFcwhbtrXSCKIHANSLOT8508-32-56 16:00:00 Test Item Value Reference Range Interpretation Comments Chloride Lvl (test code = Chloride Lvl) 109 95-109 [facility]awZqfrztnNGAFEHSMPWEH7626-01-34 16:00:00 Test Item Value Reference Range Interpretation Comments AGAP (test code = AGAP) 16.9 10.0-20.0 [facility]awSchmuioCYBIIQBKJRHT4541-03-92 16:00:00 Test Item Value Reference Range Interpretation Comments Calcium Lvl (test code = Calcium Lvl) 8.6 8.5-10.5 [facility]awOegaewjKEJBYFCFGZDC4454-02-43 16:00:00 Test Item Value Reference Range Interpretation Comments eGFR (test code = eGFR) 79 [facility] HospitalVtkrjvrFHIBDZCNNJ8295-06-64 16:00:00 Test Item Value Reference Range Interpretation Comments RBC (test code = RBC) 4.29 4.20-5.40 [facility] HospitalAdanebyQDCLYNCIHG4339-98-96 16:00:00 Test Item Value Reference Range Interpretation Comments MPV (test code = MPV) 6.7 7.4-10.4 [facility] HospitalMxlwjnoJRSKCELUBN2416-45-91 16:00:00 Test Item Value Reference Range Interpretation Comments Platelet (test code = Platelet) 337 133-450 [facility] HospitalZdimtriFZESOERCHV7680-26-48 16:00:00 Test Item Value Reference Range Interpretation Comments RDW (test code = RDW) 14.6 11.5-14.5 [facility] HospitalWpkmvdsLQTLSYMLQL0507-17-14 16:00:00 Test Item Value Reference Range Interpretation Comments MCHC (test code = MCHC) 33.9 32.0-36.0 [facility] HospitalUnbbqqtUKFUEVQTIZ8660-76-09 16:00:00 Test Item Value Reference Range Interpretation Comments MCH (test code = MCH) 31.1 pg 27.0-31.0 [facility] HospitalZxipfnhUKVCIUDZFR5671-16-58 16:00:00 Test Item Value Reference Range Interpretation Comments MCV (test code = MCV) 91.6 80.0-98.0 [facility] HospitalKcgnfeyUYWBQSCYOP7159-62-81 16:00:00 Test Item Value Reference Range Interpretation Comments Hct (test code = Hct) 39.3 36.0-48.0 [facility] HospitalYwawyzyZQWNFKQWHX8259-14-88 16:00:00 Test Item Value Reference Range Interpretation Comments Hgb (test code = Hgb) 13.4 12.0-16.0 [facility] HospitalArafhvcCIDIHWDGTL1589-61-58 16:00:00 Test Item Value Reference Range Interpretation Comments WBC (test code = WBC) 13.4 3.7-10.4 [facility] HospitalBtdluskAXTAAHOYGC0821-12-57 16:00:00 Test Item Value Reference Range Interpretation Comments Basophils # (test code 0.0 See_Comment [Aut omated message] The = Basophils #) system which generated this result tra nsmitted reference range : <=0.2. The reference r markus was not used to int erpret this result as normal/abnormal . [facility] HospitalWqkqrgoTECYDIFJFF2787-68-63 16:00:00 Test Item Value Reference Range Interpretation Comments Eosinophils # (test code 0.0 See_Comment [A utomated message] The = Eosinophils #) system whic h generated this result tra nsmitted reference range : <=0.5. The reference r markus was not used to int erpret this result as normal/abnormal . [facility] HospitalFhrljoaTUENMOYLSC6625-22-27 16:00:00 Test Item Value Reference Range Interpretation Comments Monocytes # (test code 0.6 See_Comment [Aut omated message] The = Monocytes #) system which generated this result tra nsmitted reference range : <=0.8. The reference r markus was not used to int erpret this result as normal/abnormal . [facility] HospitalSspunzlJWJXVKYRYB1561-72-92 16:00:00 Test Item Value Reference Range Interpretation Comments Segs-Bands # (test code = Segs-Bands #) 10.1 1.5-8.1 [facility] HospitalGwjgghpVOOSRDYAMB0133-13-50 16:00:00 Test Item Value Reference Range Interpretation Comments Lymphocytes # (test code = Lymphocytes 2.7 1.0-5.5 #) [facility] HospitalLvkghkiLFCJWLLAEF3729-18-32 16:00:00 Test Item Value Reference Range Interpretation Comments Monocytes (test code = Monocytes) 4.4 2.0-12.0 [facility] HospitalZnaaauqIXSZVIIEUW5399-16-15 16:00:00 Test Item Value Reference Range Interpretation Comments Lymphocytes (test code = Lymphocytes) 20.1 20.0-40.0 [facility] HospitalTbeappsCCOONZZDBY8689-10-12 16:00:00 Test Item Value Reference Range Interpretation Comments Segs (test code = Segs) 74.9 45.0-75.0 [facility] HospitalTdwllwxIOAKPPVALO0725-89-39 16:00:00 Test Item Value Reference Range Interpretation Comments Eosinophils (test code = 0.3 See_Comment [A utomated message] The Eosinophils) system which ge nerated this result tra nsmitted reference range : <=4.0. The reference r markus was not used to int erpret this result as normal/abnormal . [facility] HospitalNuogqsoHYVYFZBSRT6954-58-06 16:00:00 Test Item Value Reference Range Interpretation Comments Basophils (test code = 0.3 See_Comment [Aut omated message] The Basophils) system which ge nerated this result tra nsmitted reference range : <=1.0. The reference r markus was not used to int erpret this result as normal/abnormal . [facility]anoKgkqrvmLCUXVHLSRS1238-02-31 16:00:00 Test Item Value Reference Range Interpretation Comments Salicylate Lvl (test 6.2 See_Comment [Autom ated message] The code = Salicylate Lvl) syste m which generated this result tra nsmitted reference range : <=30.0. The reference r markus was not used to int erpret this result as normal/abnormal . [facility] PlanoOsustcfPGGUJWDISY2801-91-81 16:00:00 Test Item Value Reference Range Interpretation Comments Acetaminoph Lvl (test code = 9 10-20 Acetaminoph Lvl) [facility] PlanoDivvspdGZMXUEENSI5602-22-02 16:00:00 Test Item Value Reference Range Interpretation Comments Ethanol Lvl (test code = Ethanol Lvl) no gt [facility] HospitalUyjekvoAOSJVKZYRV9037-27-16 16:00:00 Test Item Value Reference Range Interpretation Comments Etoh (%) (test code = Etoh (%)) no gt [facility]annDR[facility] XYFAVJ4727-82-64 15:30:41 Test Item Value Reference Range Interpretation Comments U Cocaine Scr (test Positive *ABN*(01/14/14 code = U Cocaine Scr) 10:30 AM) [facility]annDR[facility] ODJPVI5154-73-72 15:30:41 Test Item Value Reference Range Interpretation Comments U Benzodia Scr (test Negative *NA*(01/14/14 code = U Benzodia Scr) 10:30 AM) [facility] [id number] 15:30:41 Test Item Value Reference Range Interpretation Comments U Lizzy Scr (test code Negative *NA*(01/14/14 = U Lizzy Scr) 10:30 AM) [facility]annDR[facility] IAMIAH0241-90-07 15:30:41 Test Item Value Reference Range Interpretation Comments U Amph Scr (test code Positive *ABN*(01/14/14 = U Amph Scr) 10:30 AM) [facility]annDR[facility] [id number] 15:30:41 Test Item Value Reference Range Interpretation Comments UDS Note (test code = See Note 4(01/14/14 UDS Note) 10:30 AM) [facility]annDR[facility] CSNJSC2847-94-02 15:30:41 Test Item Value Reference Range Interpretation Comments U Phencyc Scr (test Negative *NA*(01/14/14 code = U Phencyc Scr) 10:30 AM) [facility] AWLZWM4570-70-53 15:30:41 Test Item Value Reference Range Interpretation Comments U Cannab Scr (test Negative *NA*(01/14/14 code = U Cannab Scr) 10:30 AM) [facility] LQFQZT6827-31-75 15:30:41 Test Item Value Reference Range Interpretation Comments U Opiate Scr (test Positive *ABN*(01/14/14 code = U Opiate Scr) 10:30 AM) [facility] [id number] 15:30:00 Test Item Value Reference Range Interpretation Comments UA Urobilinogen (test code = UA 0.2 0.1-1.0 Urobilinogen) [facility] [id number] 15:30:00 Test Item Value Reference Range Interpretation Comments UA Nitrite (test code Negative (01/14/14 10:30 = UA Nitrite) AM) [facility] [id number] 15:30:00 Test Item Value Reference Range Interpretation Comments UA Leuk Est (test Moderate *ABN*(01/14/14 code = UA Leuk Est) 10:30 AM) [facility] [id number] 15:30:00 Test Item Value Reference Range Interpretation Comments UA Sq Epi (test code = UA Sq Epi) Rare /LPF [facility] [id number] 15:30:00 Test Item Value Reference Range Interpretation Comments UA RBC (test code = 0-2 /HPF See_Comment [Automa francine message] The UA RBC) system which ge nerated this result tra nsmitted reference range : <=2. The reference range was not used to interpr et this result as angel l/abnormal. [facility] [id number] 15:30:00 Test Item Value Reference Range Interpretation Comments UA WBC (test code = UA Packed *ABN*(01/14/14 WBC) 10:30 AM) [facility] [id number] 15:30:00 Test Item Value Reference Range Interpretation Comments UA Bacteria (test code = UA Occasional /HPF Bacteria) [facility] [id number] 15:30:00 Test Item Value Reference Range Interpretation Comments UA Bili (test code = Moderate *ABN*(01/14/14 [facility]A Bili) 10:30 AM) [id number] 15:30:00 Test Item Value Reference Range Interpretation Comments UA Ketones (test code = UA >=80 mg/dL Ketones) [facility] AND [id number] 15:30:00 Test Item Value Reference Range Interpretation Comments UA Blood (test code = Trace *ABN*(01/14/14 UA Blood) 10:30 AM) [facility] AND [id number] 15:30:00 Test Item Value Reference Range Interpretation Comments UA Color (test code = Yellow *NA*(01/14/14 UA Color) 10:30 AM) [facility] AND [id number] 15:30:00 Test Item Value Reference Range Interpretation Comments UA pH (test code = UA pH) 6.0 1 5.0-8.0 [facility] AND [id number] 15:30:00 Test Item Value Reference Range Interpretation Comments UA Spec Grav (test >=1.030 *ABN*(01/14/14 code = UA Spec Grav) 10:30 AM) [facility] AND [id number] 15:30:00 Test Item Value Reference Range Interpretation Comments UA Turbidity (test code Slight Cloudy = UA Turbidity) (01/14/14 10:30 AM) [facility] AND [id number] 15:30:00 Test Item Value Reference Range Interpretation Comments UA Glucose (test code Negative (01/14/14 10:30 = UA Glucose) AM) [facility] AND [id number] 15:30:00 Test Item Value Reference Range Interpretation Comments UA Protein (test code = Trace *ABN*(01/14/14 UA Protein) 10:30 AM) [facility] [id number] 15:30:00 Test Item Value Reference Range Interpretation Comments U Preg (test code = U Negative (01/14/14 10:30 Preg) AM) [facility] [id number] 04:50:00 Test Item Value Reference Range Interpretation Comments Lipase Lvl (test code = Lipase Lvl) 101 73-393 [facility] [id number] 04:50:00 Test Item Value Reference Range Interpretation Comments Amylase Lvl (test code = Amylase Lvl) 23 25-115 [facility] [id number] 04:50:00 Test Item Value Reference Range Interpretation Comments Alk Phos (test code = Alk Phos) 69 39-136 [facility]2014-09-16 04:50:00 Test Item Value Reference Range Interpretation Comments Bili Total (test code = Bili Total) 0.5 0.2-1.3 [facility]2014-09-16 04:50:00 Test Item Value Reference Range Interpretation Comments AST (test code = AST) 14 See_Comment [Auto mated message] The system which ge nerated this result transmit francine reference range : <=37. The reference range was not used to interpr et this result as angel l/abnormal. [facility]2014-09-16 04:50:00 Test Item Value Reference Range Interpretation Comments Potassium Lvl (test code = Potassium 2.9 3.5-5.1 Lvl) [facility]2014-09-16 04:50:00 Test Item Value Reference Range Interpretation Comments Chloride Lvl (test code = Chloride Lvl) 109 95-109 [facility]2014-09-16 04:50:00 Test Item Value Reference Range Interpretation Comments AGAP (test code = AGAP) 19.9 10.0-20.0 [facility]2014-09-16 04:50:00 Test Item Value Reference Range Interpretation Comments Calcium Lvl (test code = Calcium Lvl) 8.4 8.5-10.5 [facility]2014-09-16 04:50:00 Test Item Value Reference Range Interpretation Comments Total Protein (test code = Total 6.0 6.4-8.4 Protein) [facility]2014-09-16 04:50:00 Test Item Value Reference Range Interpretation Comments Albumin Lvl (test code = Albumin Lvl) 3.3 3.5-5.0 [facility]2014-09-16 04:50:00 Test Item Value Reference Range Interpretation Comments CO2 (test code = CO2) 18 24-32 [facility]2014-09-16 04:50:00 Test Item Value Reference Range Interpretation Comments B/C Ratio (test code = B/C Ratio) 21 6-25 [facility]2014-09-16 04:50:00 Test Item Value Reference Range Interpretation Comments Creatinine Lvl (test code = Creatinine 0.7 0.5-1.4 Lvl) [place] [id number] 04:50:00 Test Item Value Reference Range Interpretation Comments Sodium Lvl (test code = Sodium Lvl) 144 135-145 [facility]2014-09-16 04:50:00 Test Item Value Reference Range Interpretation Comments BUN (test code = BUN) 15 7-22 [place] [id number] 04:50:00 Test Item Value Reference Range Interpretation Comments Glucose Lvl (test code = Glucose Lvl) 95 70-99 [facility]2014-09-16 04:50:00 Test Item Value Reference Range Interpretation Comments ALT (test code = ALT) 14 See_Comment [Auto mated message] The system which ge nerated this result transmit francine reference range : <=65. The reference range was not used to interpr et this result as angel l/abnormal. [place] [id number] 04:50:00 Test Item Value Reference Range Interpretation Comments eGFR (test code = eGFR) 107 [place] [id number] 04:50:00 Test Item Value Reference Range Interpretation Comments A/G Ratio (test code = A/G Ratio) 1.2 0.7-1.6 [place] [id number] 04:50:00 Test Item Value Reference Range Interpretation Comments Globulin (test code = Globulin) 2.7 2.0-4.0 [id number] 03:50:00 Test Item Value Reference Range Interpretation Comments Segs-Bands # (test code = Segs-Bands #) 7.8 1.5-8.1 [id number] 03:50:00 Test Item Value Reference Range Interpretation Comments Lymphocytes # (test code = Lymphocytes 2.4 1.0-5.5 #) [id number] 03:50:00 Test Item Value Reference Range Interpretation Comments Monocytes (test code = Monocytes) 4.6 2.0-12.0 [place] [id number] 03:50:00 Test Item Value Reference Range Interpretation Comments Monocytes # (test code 0.5 See_Comment [Aut omated message] The = Monocytes #) system which generated this result tra nsmitted reference range : <=0.8. The reference r markus was not used to int erpret this result as normal/abnormal . [id number] 03:50:00 Test Item Value Reference Range Interpretation Comments Lymphocytes (test code = Lymphocytes) 22.4 20.0-40.0 [id number] 03:50:00 Test Item Value Reference Range Interpretation Comments Basophils # (test code 0.0 See_Comment [Aut omated message] The = Basophils #) system which generated this result tra nsmitted reference range : <=0.2. The reference r markus was not used to int erpret this result as normal/abnormal . [id number] 03:50:00 Test Item Value Reference Range Interpretation Comments Eosinophils # (test code 0.1 See_Comment [A utomated message] The = Eosinophils #) system whic h generated this result tra nsmitted reference range : <=0.5. The reference r markus was not used to int erpret this result as normal/abnormal . [id number] 03:50:00 Test Item Value Reference Range Interpretation Comments Eosinophils (test code = 0.6 See_Comment [A utomated message] The Eosinophils) system which ge nerated this result tra nsmitted reference range : <=4.0. The reference r markus was not used to int erpret this result as normal/abnormal . [facility] H[id number] 03:50:00 Test Item Value Reference Range Interpretation Comments Basophils (test code = 0.3 See_Comment [Aut omated message] The Basophils) system which ge nerated this result tra nsmitted reference range : <=1.0. The reference r markus was not used to int erpret this result as normal/abnormal . [id number] 03:50:00 Test Item Value Reference Range Interpretation Comments Segs (test code = Segs) 72.1 45.0-75.0 [facility] [id number] 03:50:00 Test Item Value Reference Range Interpretation Comments MPV (test code = MPV) 7.0 7.4-10.4 [id number] 03:50:00 Test Item Value Reference Range Interpretation Comments Platelet (test code = Platelet) 407 133-450 [facility] H[id number] 03:50:00 Test Item Value Reference Range Interpretation Comments RDW (test code = RDW) 14.8 11.5-14.5 [facility] H[id number] 03:50:00 Test Item Value Reference Range Interpretation Comments MCHC (test code = MCHC) 33.5 32.0-36.0 [facility] H[id number] 03:50:00 Test Item Value Reference Range Interpretation Comments MCH (test code = MCH) 30.7 pg 27.0-31.0 [facility] H[id number] 03:50:00 Test Item Value Reference Range Interpretation Comments Hct (test code = Hct) 41.5 36.0-48.0 [facility] Hospit[id number] 03:50:00 Test Item Value Reference Range Interpretation Comments RBC (test code = RBC) 4.53 4.20-5.40 [facility] H[id number] 03:50:00 Test Item Value Reference Range Interpretation Comments Hgb (test code = Hgb) 13.9 12.0-16.0 [facility] Ho[id number] 03:50:00 Test Item Value Reference Range Interpretation Comments WBC (test code = WBC) 10.8 3.7-10.4 [facility] H[id number] 03:50:00 Test Item Value Reference Range Interpretation Comments MCV (test code = MCV) 91.6 80.0-98.0 [facility]
[2021-09-07] MEDS ORDERED: ONDANSETRON 4 MG/2 ML VIAL ONE ×2 (16:03→20:18)
[2021-09-07] MEDS ORDERED: NA CHLORIDE 0.9% 1,000 ML ONE (16:03)
[2021-09-07] MEDS ORDERED: MORPHINE 4 MG/ML SYR ONE (16:03)
[2021-09-07] MEDS ORDERED: FAMOTIDINE 20 MG/2 ML VIAL IV ONE (16:04)
[2021-09-07] MEDS ORDERED: HYDROMORPHONE HCL 1 MG/ML INJ ONE ×2 (17:44→18:55)
[2021-09-07 17:59] LABS: Absolute Lymphocytes (CBC) 1.2 K/uL (0.7-4.9); Hematocrit 45.9 % (36.0-45.0); MPV 6.2 fL (7.6-11.3)
[2021-09-07 18:18] LABS: Albumin 3.2 g/dL (3.4-5.0); Bilirubin Total 0.2 mg/dL (0.2-1.0); Protein, Total 6.6 g/dL (6.4-8.2)
--- NOTE | 2021-09-07 18:51 | RAD REPORT ---
EXAM DESCRIPTION: CTAbdomen Pelvis W Contrast - 09/07/2021 6:43 pm CLINICAL HISTORY: Abdominal pain. Abdominal pain, acute, nonlocalized COMPARISON: <Comparisons> TECHNIQUE: Biphasic CT imaging of the abdomen and pelvis was performed with 100 ml non-ionic IV cont rast. All CT scans are performed using dose optimization technique as appropriate and may include automated exposure control or mA/KV adjustment according to patient size. FINDINGS: The lung bases are clear.Cholecystectomy clips. The liver, spleen, pancreas, adrenal glands and kidneys are within normal limits. Benign renal cysts are present bilaterally. Hemicolectomy changes are present with postsurgical anastomosis in the right upper quadrant. Mildly d ilated small bowel loops are present compatible with mild mechanical small-bowel obstruction. No free intraperitoneal air is seen. No abscess is present. Nonvisualized appendix. No evidence of signific ant lymphadenopathy. No suspicious bony findings. IMPRESSION: Mild mechanical small-bowel obstruction is present.
[2021-09-07] MEDS ORDERED: CEFTRIAXONE 1000 MG/VIAL ONE (19:51)
[2021-09-07] MEDS ORDERED: NA CHLORIDE 0.9% 50 ML ONE (19:52)
[2021-09-07] MEDS ORDERED: METRONIDAZOLE 500mg IVPB 500 MG/100 ML BAG IV ONE (19:52)
--- NOTE | 2021-09-07 20:12 | EDPHYS ---
Physician Documentation [facility] Name: Angela Rodriguez Age: 50 yrs Sex: Female : 1970 Arrival Date: 09/07/2021 Time: 13:38 Bed 16 Private MD: ED Physician Richy Mathew HPI: 09/07 18:39 This 50 yrs old Female presents to ER via Wheelchair with complaints of Abdominal Pain. kdr 18:39 The patient presents with abdominal pain that is diffuse. Onset: The symptoms/episode kdr began/occurred acutely, suddenly, last night. The symptoms do not radiate. Associated signs and symptoms: Pertinent positives: Patient has had diffuse crampy abdominal pain. She has had some nausea but no vomiting. He states that she is not passing any gas but has passed some fluid today. The symptoms are described as achy, crampy, dull, sharp, stabbing, waxing/waning. Modifying factors: The symptoms are alleviated by nothing, the symptoms are aggravated by coughing, movement. Severity of pain: At its worst the pain was moderate severe in the emergency department the pain is unchanged. The patient has experienced similar episodes in the past, multiple times. The patient has not recently seen a physician. Patient presents to the ED with abdominal pain that started last evening. She has a history of Crohn's. She is concerned that she may have a recurrent bowel obstruction. She states that the prior bowel obstructions have started in a similar manner. She appears to be in moderate distress though she is not acutely toxic at this time. 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 - Hysterectomy jl7 Historical: - Allergies: 14:34 Ciprofloxacin; jl7 14:34 Phenergan; jl7 - Home Meds: 14:34 buspirone 10 mg Oral tab 1 tab 3 times per day [Active]; cholecalciferol (vitamin D3) jl7 50 mcg (2,000 unit) Oral cap daily [Active]; clonazepam 1 mg Oral tab 1 tab 3 times per day [Active]; escitalopram oxalate 10 mg Oral tab 1 tab once daily [Active]; estradiol 1 mg Oral tab 1 tab once daily [Active]; ferrous sulfate 325 mg (65 mg iron) Oral TbEC 325 mg twice a day [Active]; fluconazole 150 mg Oral tab 1 tab [Active]; gabapentin 300 mg Oral Tb24 1 tab once daily [Active]; pantoprazole 40 mg Oral grps 1 packet 2 times per day [Active]; montelukast 10 mg Oral tab 1 tab once daily [Active]; phenazopyridine 200 mg Oral tab 1 tab 3 times per day [Active]; Cholestyramine Light 4 gram Oral powd 1 scoop daily [Active]; - PMHx: 14:34 adrenal insufficiency; avascular necrosis; Bipolar disorder; Chronic pain; Crohn's; jl7 Endometrosis; Hypothyroidism; - PSHx: 14:34 bowel resection; section; Cholecystectomy; knee; Total abdominal hysterectomy; jl7 wrist; - Immunization history:: Client reports receiving the 2nd dose of the Covid vaccine. - Social history:: Smoking status: Patient reports the use of cigarette tobacco products, smokes one-half pack cigarettes per day. ROS: 18:39 Constitutional: Negative for fever, chills, and weight loss, Eyes: Negative for injury, kdr pain, redness, and discharge, ENT: Negative for injury, pain, and discharge, Neck: Negative for injury, pain, and swelling, Cardiovascular: Negative for chest pain, palpitations, and edema, Respiratory: Negative for shortness of breath, cough, wheezing, and pleuritic chest pain, Back: Negative for injury and pain, : Negative for injury, bleeding, discharge, and swelling, MS/Extremity: Negative for injury and deformity, Skin: Negative for injury, rash, and discoloration, Neuro: Negative for headache, weakness, numbness, tingling, and seizure activity. Psych: Negative for depression, anxiety, suicide ideation, homicidal ideation, and hallucinations, Allergy/Immunology: Negative for hives, rash, and allergies, Endocrine: Negative for neck swelling, polydipsia, polyuria, polyphagia, and marked weight changes, Hematologic/Lymphatic: Negative for swollen nodes, abnormal bleeding, and unusual bruising. 18:39 Abdomen/GI: Positive for abdominal pain, nausea, abdominal cramps, Negative for diarrhea, abdominal distension, anorexia, dysphagia, hematemesis, black/tarry stool, rectal pain, rectal bleeding. Exam: 18:39 Constitutional: This is a well developed, well nourished patient who is awake, alert, kdr and in mild to moderate distress. Head/Face: Normocephalic, atraumatic. Eyes: Pupils equal round and reactive to light, extra-ocular motions intact. Lids and lashes normal. Conjunctiva and sclera are non-icteric and not injected. Cornea within normal limits. Periorbital areas with no swelling, redness, or edema. Neck: Trachea midline, no thyromegaly or masses palpated, and no cervical lymphadenopathy. Supple, full range of motion without nuchal rigidity, or vertebral point tenderness. No Meningismus. Chest/axilla: Normal chest wall appearance and motion. Nontender with no deformity. No lesions are appreciated. Cardiovascular: Regular rate and rhythm with a normal S1 and S2. No gallops, murmurs, or rubs. Normal PMI, no JVD. No pulse deficits. Respiratory: Lungs have equal breath sounds bilaterally, clear to auscultation and percussion. No rales, rhonchi or wheezes noted. No increased work of breathing, no retractions or nasal flaring. Back: No spinal tenderness. No costovertebral tenderness. Full range of motion. Skin: Warm, dry with normal turgor. Normal color with no rashes, no lesions, and no evidence of cellulitis. MS/ Extremity: Pulses equal, no cyanosis. Neurovascular intact. Full, normal range of motion. Neuro: Awake and alert, GCS 15, oriented to person, place, time, and situation. Cranial nerves II-XII grossly intact. Motor strength 5/5 in all extremities. Sensory grossly intact. Cerebellar exam normal. Normal gait. Psych: Awake, alert, with orientation to person, place and time. Behavior, mood, and affect are within normal limits. 18:39 Abdomen/GI: Inspection: abdomen appears normal, Bowel sounds: absent, in all quadrants, Palpation: soft, mild abdominal tenderness, in all quadrants. Vital Signs: 14:33 BP 110 / 70; Pulse 94; Resp 16; Temp 97.7; Pulse Ox 99% on R/A; Weight 70.31 kg; Height jl7 5 ft. 2 in. (157.48 cm); Pain 10/10; 20:00 BP 138 / 95; Pulse 84; Resp 18; Pulse Ox 97% on R/A; aliyah 21:28 BP 115 / 89; Pulse 90; Resp 16; aliyah 22:40 BP 113 / 85; Pulse 90; Resp 18; Pulse Ox 97% on 2 lpm NC; aliyah 14:33 Body Mass Index 28.35 (70.31 kg, 157.48 cm) jl7 MDM: 18:39 Data reviewed: vital signs, nurses notes. kdr 19:03 Patient medically screened. rn 20:10 Differential diagnosis: bowel obstruction, gastritis, non-specific abd pain, rn pancreatitis, Peptic Ulcer Disease. Counseling: I had a detailed discussion with the patient and/or guardian regarding: the historical points, exam findings, and any diagnostic results supporting the discharge/admit diagnosis, lab results, radiology results, the need for further work-up and treatment in the hospital, the need to transfer to another facility. ED course: Pt with mechanical small bowel obstruction, her GI doctor and surgeon both at [facility], patient requests transfer instead of staying here, initiated transfer. . 09/07 15:06 Order name: CBC with Diff; Complete Time: 18:31 kdr 09/07 15:06 Order name: CMP; Complete Time: 18:31 kdr 09/07 15:06 Order name: Lipase; Complete Time: 18:31 [facility] 09/07 15:06 Order name: CT Abd/Pelvis - IV Contrast Only; Complete Time: 18:55 [facility] 09/07 21:35 Order name: COVID-19 SARS RT PCR (Document "Date of Onset" if Symptomatic) bb 09/07 15:06 Order name: IV Saline Lock; Complete Time: 15:46 [facility] 09/07 15:06 Order name: Labs collected and sent; Complete Time: 15:46 [facility] 09/07 16:02 Order name: Labs - recollect needed: recollect green and lavender top; Complete Time: iw 17:18 Administered Medications: 16:09 Drug: NS 0.9% 1000 ml Route: IV; Rate: 1 bolus; Site: right antecubital; jb4 16:09 Drug: Zofran (Ondansetron) 4 mg Route: IVP; Site: right antecubital; jb4 16:56 Drug: Pepcid (famotidine) 20 mg Route: IVP; Site: right upper arm; iw 16:56 Drug: morphine 4 mg Route: IVP; Site: right upper arm; iw 17:45 Drug: Dilaudid (HYDROmorphone) 1 mg Route: IVP; Site: right upper arm; iw 19:02 Follow up: Response: No adverse reaction; Pain is unchanged, physician notified iw 18:54 Drug: Dilaudid (HYDROmorphone) 1 mg Route: IVP; Site: right upper arm; iw 20:27 Follow up: Response: No adverse reaction aliyah 19:47 Not Given (Patient Refused): SOLU-Medrol (methylPrednisoLONE) 125 mg IVP once aliyah 19:56 Drug: Rocephin - (cefTRIAXone) 1 grams Route: IVPB; Infused Over: 30 mins; Site: right aliyah upper arm; 20:27 Follow up: Response: No adverse reaction; IV Intake: 50ml aliyah 20:55 Follow up: Response: No adverse reaction aliyah 20:10 Drug: Flagyl (metroNIDAZOLE) 500 mg Volume: 100 ml; Route: IVPB; Rate: 200 ml/hr; aliyah Infused Over: 30 mins; Site: right upper arm; 20:56 Follow up: Response: No adverse reaction; IV Intake: 100ml aliyah 21:14 Follow up: Response: No adverse reaction aliyah 20:26 Drug: Dilaudid (HYDROmorphone) 0.5 mg Route: IVP; Site: right antecubital; aliyah 20:55 Follow up: Response: No adverse reaction; Pain is decreased aliyah 20:55 Drug: D5-1/2 NS with KCl 20 mEq/L 1000 ml Route: IV; Rate: 100 ml/hr; Site: right upper aliyah arm; 21:13 Drug: Dilaudid (HYDROmorphone) 0.5 mg Route: IVP; Site: right upper arm; aliyah Disposition Summary: 09/07/21 20:12 Transfer Ordered Transfer Location: [facility] rn Reason: Higher level of care rn Condition: Stable rn Problem: new rn Symptoms: have improved rn Accepting Physician: (09/07/21 23:13) aliyah Diagnosis - Other and unspecified intestinal obstruction rn Forms: - Medication Reconciliation Form rn - SBAR form rn Signatures: Dispatcher [employer] Andre Messer MD MD kdr Williams, Irene, RN RN iw Nieto, Roman, MD MD rn Bryson, James, RN RN jb4 Trevon Tello RN RN jl7 Anuja Ponce RN RN bo Corrections: (The following items were deleted from the chart) 23:13 20:12 Dr. rn aliyah
--- NOTE | 2021-09-07 20:12 | ER ---
Nurse's Notes [facility] Name: Angela Rodriguez Age: 50 yrs Sex: Female : 1970 Arrival Date: 09/07/2021 Time: 13:38 Bed 16 Private MD: Diagnosis: Other and unspecified intestinal obstruction Presentation: 09/07 14:33 Chief complaint: Patient states: Bloated, abdominal pain, nausea since last night, jl7 history of Chron's disease. Coronavirus screen: At this time, the client does not indicate any symptoms associated with coronavirus-19. Ebola Screen: No symptoms or risks identified at this time. Initial Sepsis Screen: Does the patient meet any 2 criteria? No. Patient's initial sepsis screen is negative. Does the patient have a suspected source of infection? No. Patient's initial sepsis screen is negative. Risk Assessment: Do you want to hurt yourself or someone else? Patient reports no desire to harm self or others. Onset of symptoms was September 06, 2021. 14:33 Method Of Arrival: Wheelchair jl 14:33 Acuity: LIZZY 3 jl7 Triage Assessment: 14:34 General: Appears in no apparent distress. uncomfortable, Behavior is calm, cooperative, jl7 appropriate for age. Pain: Complains of pain in abdomen Pain currently is 10 out of 10 on a pain scale. 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 - Hysterectomy jl7 Historical: - Allergies: 14:34 Ciprofloxacin; jl7 14:34 Phenergan; jl7 - Home Meds: 14:34 buspirone 10 mg Oral tab 1 tab 3 times per day [Active]; cholecalciferol (vitamin D3) jl7 50 mcg (2,000 unit) Oral cap daily [Active]; clonazepam 1 mg Oral tab 1 tab 3 times per day [Active]; escitalopram oxalate 10 mg Oral tab 1 tab once daily [Active]; estradiol 1 mg Oral tab 1 tab once daily [Active]; ferrous sulfate 325 mg (65 mg iron) Oral TbEC 325 mg twice a day [Active]; fluconazole 150 mg Oral tab 1 tab [Active]; gabapentin 300 mg Oral Tb24 1 tab once daily [Active]; pantoprazole 40 mg Oral grps 1 packet 2 times per day [Active]; montelukast 10 mg Oral tab 1 tab once daily [Active]; phenazopyridine 200 mg Oral tab 1 tab 3 times per day [Active]; Cholestyramine Light 4 gram Oral powd 1 scoop daily [Active]; - PMHx: 14:34 adrenal insufficiency; avascular necrosis; Bipolar disorder; Chronic pain; Crohn's; jl7 Endometrosis; Hypothyroidism; - PSHx: 14:34 bowel resection; section; Cholecystectomy; knee; Total abdominal hysterectomy; jl7 wrist; - Immunization history:: Client reports receiving the 2nd dose of the Covid vaccine. - Social history:: Smoking status: Patient reports the use of cigarette tobacco products, smokes one-half pack cigarettes per day. Screenin:37 Abuse screen: Denies threats or abuse. Denies injuries from another. Nutritional iw screening: No deficits noted. Tuberculosis screening: No symptoms or risk factors identified. Fall Risk IV access (20 points). Assessment: 17:20 Reassessment: Patient appears in no apparent distress at this time. Patient and/or iw family updated on plan of care and expected duration. Pain level reassessed. pt states pain has not improved, states dilaudid works best for her. 19:16 Reassessment: Pt was placed in room #16 \\T\\ this time. aliyah 20:42 Reassessment: The pt is not in the room and I'm awaiting her return, so I can hang the aliyah IVF. 20:44 Reassessment: The pt has returned from the bathroom. aliyah 21:26 Reassessment: I was given the MOT to call report to [facility]. [phone]. aliyah 21:30 Reassessment: They said the nurse was admitting another pt and asked me to call back in aliyah 30 minutes. I told her I felt sure EMS would have already arrived and taken her, but I would try to do so. 21:49 Reassessment: I've called [facility], again, to try and give report. My charge aliyah nurse is aware of the situation. 21:56 Reassessment: Report given to RN at [facility] and the pt has asked for more pain aliyah medication and the MD was informed. Awaiting EMS. Vital Signs: 14:33 BP 110 / 70; Pulse 94; Resp 16; Temp 97.7; Pulse Ox 99% on R/A; Weight 70.31 kg; Height jl7 5 ft. 2 in. (157.48 cm); Pain 10/10; 20:00 BP 138 / 95; Pulse 84; Resp 18; Pulse Ox 97% on R/A; aliyah 21:28 BP 115 / 89; Pulse 90; Resp 16; aliyah 22:40 BP 113 / 85; Pulse 90; Resp 18; Pulse Ox 97% on 2 lpm NC; aliyah 14:33 Body Mass Index 28.35 (70.31 kg, 157.48 cm) jl7 ED Course: 13:38 Patient arrived in ED. ds1 13:53 Andre Krishna MD is Attending Physician. kdr 14:34 Triage completed. jl7 14:34 Arm band placed on right wrist. jl7 15:53 Accessed peripheral vein via ultrasound, utilizing dynamic ultrasound technique using jd3 20G Nexia IV catheter ,sterile technique, per hospital protocol. Clean \\T\\ dry. Dressing intact. Good blood return. Flushes easily. 20 G right AC. 16:08 Yves Rajput, RN is Primary Nurse. jb4 16:37 Inserted saline lock: 22 gauge in right ,using aseptic technique. shoulder. iw 17:17 Stefano Trotter PA is PHCP. jr8 18:45 CT Abd/Pelvis - IV Contrast Only In Process Unspecified. EDMS 19:03 Attending Physician role handed off by Andre Krishna MD rn 19:03 Richy Mathew MD is Attending Physician. rn 20:[address] [facility] to initiate Transfer, spoke to Frank Friend. wm 20:41 [facility] called for a to Dr. Jade. wm 20:43 Call light in reach. Adult w/ patient. aliyah 20:43 Dr. Robert Hess with [facility] accepted her as his Pt. wm 20:43 No provider procedures requiring assistance completed. aliyah 21:12 Time of admin approval of Transfer to [facility] [address] [place], [id number]. wm 21:34 Spoke with [facility] for Transport, stated they would be likely be 1.5 to 2.0 wm hours, if longer would call back to let us know. ([facility] mentioned to me earlier when they came for another transport that they only had one truck tonight so they wouldn't be available for transfers). 21:53 COVID-19 SARS RT PCR (Document "Date of Onset" if Symptomatic) Sent. aliyah 21:57 Patient transferred, IV remains in place. aliyah 23:00 [facility] arrived for transport. wm 23:43 Faxed Shellsia Friend, the requested Face sheet, and Negative Covid Result. wm Administered Medications: 16:09 Drug: NS 0.9% 1000 ml Route: IV; Rate: 1 bolus; Site: right antecubital; jb4 16:09 Drug: Zofran (Ondansetron) 4 mg Route: IVP; Site: right antecubital; jb4 16:56 Drug: Pepcid (famotidine) 20 mg Route: IVP; Site: right upper arm; iw 16:56 Drug: morphine 4 mg Route: IVP; Site: right upper arm; iw 17:45 Drug: Dilaudid (HYDROmorphone) 1 mg Route: IVP; Site: right upper arm; iw 19:02 Follow up: Response: No adverse reaction; Pain is unchanged, physician notified iw 18:54 Drug: Dilaudid (HYDROmorphone) 1 mg Route: IVP; Site: right upper arm; iw 20:27 Follow up: Response: No adverse reaction aliyah 19:47 Not Given (Patient Refused): SOLU-Medrol (methylPrednisoLONE) 125 mg IVP once aliyah 19:56 Drug: Rocephin - (cefTRIAXone) 1 grams Route: IVPB; Infused Over: 30 mins; Site: right aliyah upper arm; 20:27 Follow up: Response: No adverse reaction; IV Intake: 50ml aliyah 20:55 Follow up: Response: No adverse reaction aliyah 20:10 Drug: Flagyl (metroNIDAZOLE) 500 mg Volume: 100 ml; Route: IVPB; Rate: 200 ml/hr; aliyah Infused Over: 30 mins; Site: right upper arm; 20:56 Follow up: Response: No adverse reaction; IV Intake: 100ml aliyah 21:14 Follow up: Response: No adverse reaction aliyah 20:26 Drug: Dilaudid (HYDROmorphone) 0.5 mg Route: IVP; Site: right antecubital; aliyah 20:55 Follow up: Response: No adverse reaction; Pain is decreased aliyah 20:55 Drug: D5-1/2 NS with KCl 20 mEq/L 1000 ml Route: IV; Rate: 100 ml/hr; Site: right upper aliyah arm; 21:13 Drug: Dilaudid (HYDROmorphone) 0.5 mg Route: IVP; Site: right upper arm; aliyah Intake: 20:27 IV: 50ml; Total: 50ml. aliyah 20:56 IV: 100ml; Total: 150ml. aliyah Outcome: 20:12 ER care complete, transfer ordered by . rn 20:43 Condition: stable aliyah 21:57 Transferred by ground EMS to [facility]. aliyah 23:13 Patient left the ED. aliyah Signatures: Dispatcher [employer] EDMS Andre Krishna MD MD kdr Sanford, Drea ds1 Marcelina Chisholm RN Richy Harrison MD MD rn Roszak, Josh, PA PA jr8 Yves Rajput RN RN [email or web address] Trevon Tello RN RN jl7 Marquis Chong RN RN Kari Flores Brenda, RN RN aliyah Corrections: (The following items were deleted from the chart) 23:12 23:00 [facility] arrived [facility]
[2021-09-07] MEDS ORDERED: HYDROMORPHONE HCL 0.5 MG/0.5 ML INJ ONE ×2 (20:18→21:16)
[2021-09-07] MEDS ORDERED: D5.45NS W/KCL 20MEQ 1,000 ML IV ONE (20:35)
[2021-09-07 23:52] VITALS: TEMP 97.7
[2021-09-08 00:16] VITALS: O2SAT 97
[2021-09-08 00:21] VITALS: BP 113/85
== END 2021-09-07 23:13 | disposition short-term general hospital (02) ==
LOC: ER 13:38
DX: K56.699 Other intestinal obstruction unspecified as to partial versus complete obstruction (principal); F17.210 Nicotine dependence, cigarettes, uncomplicated; K50.90 Crohn's disease, unspecified, without complications; F31.9 Bipolar disorder, unspecified; Z20.822 Contact with and (suspected) exposure to COVID-19; Z88.1 Allergy status to other antibiotic agents; Z88.8 Allergy status to other drugs, medicaments and biological substances
CPT/HCPCS: 85025; 36415; 83690; 80053; 74177; U0003; Q9967; J1170 ×4; J7030; J3490 ×2; J2405 ×2; 99285

== ENCOUNTER 2021-10-06 03:19 | Inpatient (IN) | payer OTHER ==
--- OUTSIDE RECORDS SUMMARY | 2021-10-06 03:37 | XMS REPORT | Continuity of Care Document ---
:1970 Author Organization [facility] t Address [address] [place] [address] Care Team Providers Name Role Phone RETANASONIA JOHNSON Primary Care Physician Unavailable NISH Attending Clinician Unavailable DR SHAILESH Attending Clinician Unavailable MILADY Attending Clinician Unavailable Vivek Attending Clinician Unavailable JAVON Attending Clinician Unavailable ALEJANDRO Attending Clinician Unavailable Nadiya BULLOCK Attending Clinician Unavailable MARQUISE DASILVA Attending Clinician Unavailable NISH Attending Clinician Unavailable MACK Attending Clinician Unavailable GABRIELA GAY Attending Clinician Unavailable MACARIO Attending Clinician Unavailable Priti FIELDS Attending Clinician Unavailable Brenda Lei MD Attending Clinician Pooja Forbes MD Attending Clinician Paul Drake NP Attending Clinician MD Brenda LEI Attending Clinician Unavailable Chema Dodson MD Attending Clinician 1.5, Jase Mr Attending Clinician Unavailable CHEMA DODSON Attending Clinician Unavailable Lynne Lopez Attending Clinician Lynne LOPEZ Attending Clinician Unavailable Fabian Attending Clinician Unavailable Guillermina eJrry MA Attending Clinician Unavailable John RADER Attending Clinician Gilson VERA Attending Clinician Unavailable Adryan VERA Attending Clinician Unavailable JOHN Attending Clinician Unavailable Nish MOTLEY Attending Clinician CHEMA DODSON Attending Clinician Unavailable Elle Attending Clinician Unavailable Giacomo Attending Clinician Unavailable ENMANUEL Attending Clinician Unavailable Yessy Attending Clinician Unavailable Jaime MOTLEY Attending Clinician Mitchell Morley MD Attending Clinician Mitchell MORLEY Attending Clinician Unavailable ZANA Attending Clinician Unavailable Glenn Attending Clinician Unavailable Zuri Dalal MD Attending Clinician Javon MOTLEY Attending Clinician Nish MOTLEY Attending Clinician Laney Daniels MD Attending Clinician Jocelyn DICKINSON Attending Clinician Unavailable KARLEESEE, ALEJANDRO-AHBLADIMIR Attending Clinician Unavailable AHMED, - Attending Clinician Unavailable TRUONGI Attending Clinician Unavailable NISH Admitting Clinician Unavailable DR SHAILESH Admitting Clinician Unavailable MILADY Admitting Clinician Unavailable Nieves_Gustavo Admitting Clinician Unavailable ALEJANDRO Admitting Clinician Unavailable LISET CISSE Admitting Clinician Unavailable MACARIO Admitting Clinician Unavailable DO Admitting Clinician Unavailable DIRO BECERRA Admitting Clinician Unavailable Elle Admitting Clinician Unavailable Giacomo Admitting Clinician Unavailable Yessy Admitting Clinician Unavailable ElizabetByshawnee Admitting Clinician Unavailable GABRIELA GAY Admitting Clinician Unavailable Laney GARCIA Admitting Clinician Unavailable JAVON MANCINI-AHBLADIMIR Admitting Clinician Unavailable AHMED, - Admitting Clinician Unavailable OEI Admitting Clinician Unavailable Payers Payer Name Policy Type Policy Number Effective Date Expiration Date S ource HUMANA MEDICARE [id number] 2019 ADV 00:00:00 MEDICAID [facility] [id number] 2017 2017 00:00:00 00:00:00 MEDICARE A B [id number] 2005 2018 00:00:00 00:00:00 MEDICAID DIAZ [id number] 2017 00:00:00 [facility] [id number] 2021 - DUAL ELIGIBLE 00:00:00 (MEDICARE REPLACEMENT/ADVANT AGE - PPO) [facility] [id number] 2016 [facility] (MEDICAID 00:00:00 HMO) [place]: [id number] 2005 Employee Benefit Plans 00:00:00 - [facility] [id number] (MEDICARE REPLACEMENT/ADVANT AGE - PPO) [employer] DUAL [id number] COMPLETE SNP PPO-[facility]-MEDICAID - [id number] MEDICAID HMO - HUMANA [id number] 2019 2019 HEALTHCARE 00:00:00 00:00:00 MEDICARE PART A [id number] \\T\\ B - MEDICARE ZZZ-STAR PLUS [id number] 2011 00:00:00 STAR PLUS - DIAZ [id number] 2018 2018 00:00:00 00:00:00 [employer]LL[employer] MEDICARE [id number] 2021 00:00:00 MANAGED MEDICAID [id number] 2021 -GENERIC 00:00:00 GENERIC MEDICAID [id number] 2021 HMO 00:00:00 [facility] POS [id number] 2020 SELECT CHOICE 00:00:00 [facility] [id number] 2020 [place] 00:00:00 (MED[place] [id number] [place] [facility] - [id number] FQ (INSTITUTIONAL) [facility] [id number] HUMANA (MEDICARE [id number] REPLACEMENT/ADVANT AGE - PPO) HUMANA (PPO) [id number] [place] B[place]: [id number] 2005 Employee Benefit Plans 00:00:00 [facility] [id number] 2017 [facility] 00:00:00 PLUS - HYDRAULIC JACK MECHANIC CARE CHOICE CARE [id number] 2019 00:00:00 MED[place]ID OF [place] [id number] 2017 00:00:00 Problems Condition Condition Condition Status Onset Resolution Last Treating Co mments Source Name Details Category Date Date Treatment Clinician Date Anxiety Anxiety Problem Active 2020-05 [place] 2-29 da 00:00: Medical 00 Group Osteoporos Osteoporos Problem Active 2020-05 M [facility] is is 2-29 da 00:00: Medical 00 Group Body mass Body Mass Problem Active [facility] index 30+ Index 30+ 9-28 da - obesity - Obesity 00:00: Medi payam 00 Group COVID-19 Covid-19 Problem Active [place] 9-27 da 00:00: Medical 00 Group Chronic Chronic Disease Active [facility] cystitis cystitis 9-22 Colleg e without without 00:00: of hematuria hematuria 00 Medi marlene e Crohn's Crohn's Disease Active [facility] disease, disease, 9-13 Colleg e unspecifie unspecifie 00:00: of d, without d, without 00 Me dicin complicati complicati e ons ons (HCCode) (HCCode) Acute Acute Problem Active [place] urinary Urinary 8-02 da tract Tract 00:00: Medical infection Infection 00 Grou p [id number], Diagnosis Active 2020-08-04 Mem oria M25.561, 3-15 16:47:[place] [address], 00:00: Markus RIGHT KNEE M25.561, 00 PAIN IN RIGHT KNEE Active 07/13/2020 [facility] M17.12 - Diagnosis Active 2020-05-11 M emoria UNILATERAL 1-04 10:01:00 l PRIMARY M17.12 - 00:00: Prachi nn OSTEOARTHR UNILATERAL 00 IT PRIMARY OSTEOARTHR IT Active [facility] Avascular Avascular Problem Active 2019-05 [facility] necrosis Necrosis 0-13 da of bone of Bone 00:00: Medical 00 Group Lack or Lack or Problem Active [place] loss of Loss of 9-18 da sexual Sexual 00:00: Medical desire Desire 00 Group Dyspareuni Dyspareuni Problem Active [facility] a a 918 da 00:00: Medical 00 Group Menopausal Menopausal Problem Active M [facility] syndrome Syndrome 9 da 00:00: Medical 00 Group Localized Localized Disease Active Met hodi osteoporos osteoporos 6-08 st is without is without 00:00: Ho spita current current 00 l pathologic pathologic al al fracture fracture Ventral Ventral Disease Active [facility] incisional incisional 3-12 Co llege [...] 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 Papillomav 00:00: Me dical irus test irus Test 00 Grou p positive Positive Atypical 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 9 da cells of Cells of 00:00: Medica l undetermin Undetermin 00 Gr oup ed ed significan Significan ce on ce on vaginal Vaginal Papanicola Papanicola ou smear ou Smear Candidiasi Candidiasi Problem Active M [facility] s of s of 9 da vagina Vagina 00:00: Medical 00 Group Postsurgic Postsurgic Problem Active M [facility] al al 01-07 da menopause Menopause 00:00: Medi payam 00 Group Acute Acute Problem Active [place] cystitis Cystitis 8-30 da 00:00: Medical 00 Group Urinary Urinary Problem Active [place] tract Tract 8-19 da infectious Infectious 00:00: Me dical disease Disease 00 Group Persistent Persistent Problem Active M [facility] insomnia Insomnia 8 da 00:00: Medical 00 Group Golden's [place]'s Problem Active [facility] disease Disease 11-19 da 00:00: Medical 00 Group Abdominal Abdominal Disease Active [facility] Skin tag Skin Tag Problem Active [place] 6-19 da 00:00: Medical 00 Group Crohn's Crohn's Disease Active [facility] disease of disease of 09-03 [...] 00 Medicin e Small Small Disease Active [facility] bowel bowel 06 [place] obstructio obstructio 00:00: of n (HCCode) n (HCCode) 00 Me dicin e History of History of Disease Active [facility] Clostridiu Clostridiu 09-03 Co llege m m 00:00: of difficile difficile 00 Medi marlene infection infection e Chronic Chronic Disease Active [facility] abdominal abdominal 09-03 Ronny ege pain pain 00:00: of 00 Medicin e Macrocytic Macrocytic Disease Active [facility] anemia anemia 06 College 00:00: of 00 Medicin e Osteopenia Osteopenia Disease Active [facility] 06 College 00:00: of 00 Medicin e Heavy Heavy Disease Active [facility] smoker smoker 06 College 00:00: of 00 Medicin e Chronic Chronic [...] Active [facility] abdominal abdominal 00:00: Medi payam pain pain 00 Center Crohn's Crohn's Disease Active [facility] disease disease 3[facility] 00:[facility] Center SBO (small SBO (small Disease Active [facility] bowel bowel 3-08 [facility] obstructio obstructio 00:00: Me dical n) n) 00 Center Gastric Finding Active 2018-10-16 Isreal adiel ulcer 11-23 21:53:21 l Gastric 00:00: Markus ulcer 00 Active 11/23/2017 Finding 10/16/[address] [facility] Chest pain Finding Active 2018-10-16 M emoria 11-23 21:53:21 l Chest 00:00: Markus pain 00 Active 11/23/2017 Finding 10/16/[address] [facility] Anxiety Anxiety Problem Active [place] disorder Disorder [...] Clostridiu Problem Active 2020-08-10 M emoria m 612 06:24:10 l difficile 00:00: Markus (organism) Clostridiu 00 m difficile (organism) Active 10/10/2016 Problem 08/10/2020 Stool 10/10/2016 Problem added by Discern Expert. [facility] [place] ABDOMINAL Diagnosis Active 2016-10-18 Memoria PAIN 6-11 07:22:00 l 00:00: [place] ABDOMINAL 00 PAIN Active 10/09/2016 [facility] [place] INSECT Diagnosis Active 2015-052016-02-10 Mem oria BITE 0-08 16:26:00 l INSECT 08:00: [place] BITE 00 Active 02/06/2016 [facility] VOMITING Diagnosis Active 2014-08-13 M emoria - 08:22:00 l VOMITING 00:00: Sony n 00 Active 08/13/2014 [facility] DIARRHEA Diagnosis Active 2014-01-14 M emoria 01-14 08:28:00 l DIARRHEA 05:00: Sony n 00 Active 01/14/2014 [place] HEAT Diagnosis Active 2013-12-10 Mem oria EXPOSURE - 08:48:00 l HEAT 00:00: [place] EXPOSURE 00 Active 11/22/2013 [place] ANXIETY Condition Active 2013-11-27 Me moria DEPRESSION 4-07 06:16:00 l ANXIETY 00:00: Markus DEPRESSION 00 Active 08/05/2013 Condition 4 [facility] Mixed Problem Active 2020-08-10 Memor ia anxiety 4-07 06:24:10 l and Mixed 00:00: Markus depressive anxiety 00 disorder and (disorder) depressive disorder (disorder) Active 08/05/2013 Problem 08/10/2020 Data migrated from [facility] on 09/27/14. [facility], [facility] [place] HYPOTHYROI Condition Active 2012-052013-11-27 Memoria DISM 0-04 06:16:00 l 00:00: Markus HYPOTHYROI 00 DISM Active 02/01/2013 Condition [facility] CROHN'S Condition Active 2012-052013-11-27 Me moria DISEASE 0-04 06:16:00 l CROHN'S 00:00: Markus DISEASE 00 Active 02/01/2013 [facility] ENDOMETRIO Condition Active 2012-052013-11-27 Memoria SIS 0-04 06:16:00 l 00:00: Markus ENDOMETRIO 00 SIS Active 02/01/2013 Condition [facility] HERPES Condition Active 2012-052013-11-27 Mem oria SIMPLEX 0-04 06:16:00 l INFECTION HERPES 00:00: Prachi nn SIMPLEX 00 INFECTION Active 02/01/2013 Condition 4 Medical Group LONG-TERM Condition Active 2012-052013-11-27 Memoria (CURRENT) 0-04 06:16:00 l USE OF 00:00: [place] OTHER LONG-TERM 00 MEDICATION (CURRENT) S USE OF OTHER MEDICATION S Active 02/01/2013 Condition 4 Medical Group Long-term Problem Active 2012-052020-08-10 Me moria drug 0-04 06:24:10 l therapy 00:00: [place] (procedure Long-term 00 ) drug therapy (procedure ) Active 02/01/2013 Problem 08/10/2020 Data migrated from [employer] on 09/27/14. [facility], [facility], [place] FH LUNG Condition Active 2013-11-27 Me moria CANCER 06:16:00 l FH LUNG Markus CANCER Active Condition 11/27/2013 Medical Group Bipolar I Finding Active 2018-10-16 Me moria disorder 21:53:21 l Bipolar Markus I disorder Active Finding 10/16/[address] [facility] Chronic Finding Active 2018-10-16 Isreal adiel pain 21:53:21 l syndrome Chronic Prachi nn pain syndrome Active Finding 10/16/[address] [facility] Incisional Diagnosis Active 2019-07-03 Memoria hernia, 18:25:58 l without [place] obstructio Incisional n or hernia, gangrene without obstructio n or gangrene Active 0 [facility] Smoking Diagnosis Active 2019-07-11 Me moria trying to 18:27:32 l quit Smoking [place] trying to quit Active 0 [facility] Chronic Diagnosis Active 2019-12-20 Me moria pain of 21:16:37 l both knees Chronic Her hogan pain of both knees Active 12/20/2019 [facility] Knee Diagnosis Active 2019-12-20 Mem oria osteonecro 21:16:37 l sis Knee [place] (HCCode) osteonecro sis (HCCode) Active 0 [facility] Effusion, Diagnosis Active 2019-11-07 Memoria left knee 14:38:40 l [place] Effusion, left knee Active [address] [facility] Hypothyroi Problem Resolve 2020-08-10 Memoria dism d 06:24:10 l (disorder) Sony n Hypothyroi dism (disorder) Resolved Problem 08/10/2020 [facility], [facility], [facility] Abdominal Problem Resolve 2016-02-13 M emoria structure d 03:41:05 l (body Markus structure) Abdominal structure (body structure) Resolved Problem 02/13/2016 [facility], [facility], [facility] Colitis Problem Active 2020-08-10 Isreal adiel (disorder) 06:24:10 l Colitis Markus (disorder) Active Problem 08/10/2020 [facility], [facility], [facility], [place] Osteoarthr Problem Active 2020-08-10 M emoria itis 06:24:10 l (disorder) Sony n Osteoarthr itis (disorder) Active Problem 08/10/2020 [facility] Pain Problem Active 2020-08-10 Memor ia (finding) 06:24:10 l Pain [place] (finding) Active Problem 08/10/2020 [facility], [facility], [facility], [place] Panic Panic Problem Active [place] disorder Disorder da without without [facility] Generalize Generalize Problem Active M atag[facility] d anxiety d Anxiety da disorder Disorder [facility] Crohn's Diagnosis Active 2017-2018-10-16 2019-06-19 Memoria disease 7-26 21:53:21 17:27:41 l with Crohn's 00:00: Markus complicati disease 00 on, with unspecifie complicati d on, gastrointe unspecifie stinal d tract gastrointe location stinal (HCCode) tract location (HCCode) Active 0 [facility] History of Past Illness Condition Condition Condition Status Onset Resolution Last Treating Co mments Source Name Details Category Date Date Treatment Clinician Date Unspecifie Problem 2016-052017-02-21 2017-02-21 Memoria d 0- 01:25:53 01:25:53 l abdominal 05:00: [place] pain Unspecifie 00 d abdominal pain 02/18/2017 02/21/2017 [place] Discharge Problem 2015-052016-02-13 2016-02-13 Memoria Diagnosis: 0-12 03:41:05 03:41:05 l Erythema 05:00: [place] nodosum Discharge 00 Diagnosis: Erythema nodosum 02/10/2016 02/13/2016 [facility] Discharge Problem 2014-08-16 2014-08-16 Memoria Diagnosis: 08-13 08:06:50 08:06:50 l Diarrhea 05:00: Markus Discharge 00 Diagnosis: Diarrhea 5 08/16/2014 [facility] Discharge Problem 2014-08-16 2014-08-16 Memoria Diagnosis: 08-13 08:06:50 08:06:50 l Hypokalemi 05:00: Sony n a Discharge 00 Diagnosis: Hypokalemi a 08/13/2014 08/16/2014 [facility] [place] Discharge Problem 2013-052014-03-11 2014-03-11 Memoria Diagnosis: 05-09 21:37:50 21:37:50 l Abdominal 06:00: [place] pain Discharge 00 Diagnosis: Abdominal pain 03/09/2014 03/11/2014 [facility] [place] Discharge Problem 2013-052014-03-11 2014-03-11 Memoria Diagnosis: 05-09 21:37:50 21:37:50 l UTI 06:00: [place] (urinary Discharge 00 tract Diagnosis: infection) UTI (urinary tract infection) 03/09/2014 03/11/2014 [facility] Discharge Problem 2013-052014-03-11 2014-03-11 Memoria Diagnosis: 05-09 21:37:50 21:37:50 l Vomiting 06:00: [place] Discharge 00 Diagnosis: Vomiting 4 03/11/2014 [facility] Discharge Problem 2014-01-17 2014-01-17 Memoria Diagnosis: 01-14 04:54:49 04:54:49 l UTI (lower 05:00: Sony n urinary Discharge 00 tract Diagnosis: infection) UTI (lower urinary tract infection) [facility]14[facility]2014 [facility], Adverse Reactions, Alerts Allergy Allergy Status Severity Reaction(s) Onset Inactive Treating Comm ents Source Name Type Date Date Clinician Morphine Propensi Active Other (See Pt states Methodi ty to Comments) [address] adverse 00:00: doesn't Hospita reaction 00 work per l s to pt drug Morphine Drug Active Other (See Patient [facility] Allergy Comments) 08-17 said does Mirtha es 00:00: not work Medical 00 for her. Center Morphine Allergy Active [place] to 08-17 da substanc 00:00: Medical e 00 Group Morphine Propensi Active Mild Other [facility] ty to 08-17 reaction( College adverse 00:00: s): Other of reaction 00 (See Medicin s to Comments) e drug Patient said does not work for her. MORPHINE Allergy Active Low Other [facility] 08-17 00:00: 00 Prometha Drug Active Other (See Makes [facility] zine Allergy Comments) 3 mouth/jaw Mirtha es 00:00: twitch/je Medical 00 rk Center PROMETHA Allergy Active Med Other [facility] ZINE 308 00:00: 00 Remeron Allergy Active Other [place] to 7-30 da substanc 00:00: [facility] ciproflo ciproflo Active Memori a xacin xacin 7-25 l 00:00: Markus prometha prometha Active Memori a zine zine 7-25 l 00:00: [place] CIPROFLO DRUG Active High Anaphylaxis Uni vers XACIN INGREDI 7-12 ity of 00:00: [place] [facility] PROMETHA DRUG Active High Anaphylaxis Uni vers ZINE HCL INGREDI 7-12 ity of 00:00: [place] 00 [facility] Ciproflo Propensi Active Swelling Meth deepti xacin ty to 3-20 st adverse 00:00: Hospita reaction 00 l s to drug Prometha Propensi Active Other (See Face Me thodi zine ty to Comments) 3-[address] adverse 00:00: Hospita reaction 00 l s to drug ciproflo ciproflo Active 2012-05 Memori a xacin<estevez xacin<estevez 0-04 l p>1</sup p>1</sup 05:00: Sony n > > 00 Phenerga Phenerga Active 2012-05 Memori a n<sup>2< n<sup>2< 0-04 l /sup> /sup> 05:00: CIPRO CIPRO Active 2012-05 Memoria 0-04 l 00:00: PHENERGA PHENERGA Active 2012-05 Memori a N N 0-04 l 00:00: Ciproflo Drug Active Swelling, Makes [facility]I [facility] t xacin Allergy Anaphylaxis, 10-24 tongue Mirtha es Hives 00:00: [place] [id number] Center Prometha Propensi Active Anaphylaxis, Muscle [facility] zine Hcl ty to Other (See 10-24 twiching Gina kes adverse Comments) 00:00: Medica l reaction 00 [...] 00 Medicin s to e drug Prometha Prometha Active Memori a zine Hcl zine Hcl 10-24 l 00:00: CIPROFLO Allergy Active High Swelling [facility] XACIN 10-24 00:00: 00 PROMETHA Allergy Active High Anaphylaxis [facility] ZINE HCL 10-24 00:00: 00 Cipro Allergy Active Anaphylaxis [place] gor to da substanc [facility] Phenerga Allergy Active Anaphylaxis Mejia espinosa to da substanc [facility] Trazodon Allergy Active Hives [place] to da substanc [facility] Family History Family Member Diagnosis Comments Start Date Stop Date Source Maternal grandfather Cancer [facility] Maternal [facility] Maternal grandmother Dementia [facility] Maternal grandmother Endometriosis [facility] Maternal uncle Suicidality [facility] Natural mother Endometriosis [facility] Natural mother Other [facility] father [facility] Social History Social Habit Start Date Stop Date Quantity Comments Source History SDOH [facility] Alcohol Std Drinks Medica l Center History SDOH [facility] Alcohol Binge Medical Agapito ter History [facility] Alcohol Comment Medical C enter History of tobacco Cigarette Smoker [facility] use Hospital Exposure to Not sure [facility] SARS-CoV-2 (event) Hospit al Alcohol intake 2021-05-25 2021-05-25 Current Yarsani 00:00:00 00:00:00 non-drinker of Hospital alcohol (finding) Cigarettes smoked 2021-05-06 2021-05-[address] current (pack per 00:00:00 00:00:00 Hospita l day) - Reported Tobacco use and 2021-05-06 2021-05-06 Smokeless tobacco [facility] exposure 00:00:00 00:00:00 non-user Hospital Tobacco Comment 2020-01-29 2020-01-29 On chantix now. I [facility] 00:00:00 00:00:00 have to stop. Hospital Cigarette 2018-07-06 2018-07-[address] [facility] pack-years 00:00:00 00:00:00 Medical Center History SDOH 2018-07-06 2018-07-[address] [facility] Alcohol Frequency 00:00:00 00:00:00 [facility] Social History 2014-01-14 2014-01-14 [facility] 03:02:48 03:02:48 Sex Ass[birth year] At [birth year] [facility] kes 00:00:00 00:00:00 Medical Center Smoking Status Start Date Stop Date Source Light Tobacco Smoker [facility] Heavy Tobacco Smoker [facility] Social History 2019-11-07 00:00:00 [facility] Social History [facility] Medications Ordered Filled Start Stop Current Ordering Indication Dosage Frequency Signature Comments Components Source Medication Medication Date Date Medication? Clinician (SIG) Name Name clonAZEPAM Yes 1mg Take 1 mg Me thodi (KlonoPIN) 1-[address] 1 MG tablet 16:29: Hospit a 47 l zoledronic 2022-0 Yes Reclast 5 Me thodi acid 1-10 mg/[address] (RECLAST) 5 16:29: intravenou Hospita mg/100 mL 47 s l piggyback piggyback Inject by intravenou s route. multivitami 2021-0 Yes 1{tbl} Take 1 Me thodi n,tx-iron-m 1-[address] inerals 16:29: mouth. Hospita tablet 47 l baclofen 2022-0 Yes 20mg Q.[id number] Take 20 mg Methodi (LIORESAL) 1-10 [id number] by mouth [address] 20 MG 16:29: 3D (three) Hospita tablet 47 times a l day. gabapentin 202-0 Yes 600mg Q.[id number] Take 600 Methodi (NEURONTIN) 1-10 [id number] mg by s t 600 mg 16:29: 3D mouth 3 Hospita tablet 47 (three) l times a day. estradioL 202-0 Yes 1mg QD Take 1 mg Met hodi (ESTRACE) 1 1-[address] MG tablet 16:29: daily. Hospit a 47 l clonAZEPAM 2-0 Yes 1mg Take 1 mg Me thodi (KlonoPIN) 1-[address] 1 MG tablet 16:29: Hospit a 47 l zoledronic 2021-0 Yes Reclast 5 Me thodi acid 1-10 mg/[address] (RECLAST) 5 16:29: intravenou Hospita mg/100 mL 47 s l piggyback piggyback Inject by intravenou s route. multivitami 2021-0 Yes 1{tbl} Take 1 Me thodi n,tx-iron-m 1-[address] inerals 16:29: mouth. Hospita tablet 47 l baclofen 2022-0 Yes 20mg Q.[id number] Take 20 mg Methodi (LIORESAL) 1-10 [id number] by mouth 3 [address] 20 MG 16:29: 3D (three) Hospita tablet 47 times a l day. gabapentin 2022-0 Yes 600mg Q.[id number] Take 600 Methodi (NEURONTIN) 1-10 [id number] mg by s t 600 mg 16:29: 3D mouth 3 Hospita tablet 47 (three) l times a day. estradioL 2022-0 Yes 1mg QD Take 1 mg Met hodi (ESTRACE) 1 1-[address] MG tablet 16:29: daily. Hospit a 47 l clonAZEPAM 2022-0 Yes 1mg Take 1 mg Me thodi (KlonoPIN) 1-[address] 1 MG tablet 16:29: Hospit a 47 l zoledronic 2022-0 Yes Reclast 5 Me thodi acid 1-10 mg/[address] (RECLAST) 5 16:29: intravenou Hospita mg/100 mL 47 s l piggyback piggyback Inject by intravenou s route. multivitami 2021-0 Yes 1{tbl} Take 1 Me thodi n,tx-iron-m 1-[address] inerals 16:29: mouth. Hospita tablet 47 l baclofen 2022-0 Yes 20mg Q.[id number] Take 20 mg Methodi (LIORESAL) 1-10 [id number] by mouth [address] 20 MG 16:29: 3D (three) Hospita tablet 47 times a l day. gabapentin 2022-0 Yes 600mg Q.[id number] Take 600 Methodi (NEURONTIN) 1-10 [id number] mg by s t 600 mg 16:29: 3D mouth 3 Hospita tablet 47 (three) l times a day. estradioL 2022-0 Yes 1mg QD Take 1 mg [facility] (ESTRACE) 1 1-[address] MG tablet 16:29: daily. [facility] 47 l clonAZEPAM 2022-0 Yes 1mg Take 1 mg [facility] (KlonoPIN) 1-[address] 1 MG tablet 16:29: [facility] 47 l zoledronic 2022-0 Yes Reclast 5 [facility] acid 1-10 mg/[address] (RECLAST) 5 16:29: intravenou [facility]osp[facility] mg/100 mL 47 s l piggyback piggyback Inject by intravenou s route. multivitami 2021-0 Yes 1{tbl} Take 1 Me thodi n,tx-iron-m 1-[address] inerals 16:29: mouth. [facility]ospita tablet 47 l baclofen 2021-0 Yes 20mg Q.[id number] Take 20 mg [facility] (LIORESAL) 1-10 [id number] 20 MG 16:29: 3D (three) Hospita tablet 47 times a l day. gabapentin 2021-0 Yes 600mg Q.[id number] Take 600 [facility] (NEURONTIN) 1-10 [id number] mg by s t 600 mg 16:29: [...] 40 MG EC 13 :00 l tablet pantoprazol 2021- No 40mg QD Take 40 mg [facility] 05-[address] (PROTONIX) 11:20: 00:00 [facility]. [facility] 40 MG EC 13 :00 l tablet pantoprazol 2021- No 40mg QD Take 40 mg [facility] 05-[address] (PROTONIX) 11:20: 00:00 daily. [facility] 40 MG EC 13 :00 l tablet pantoprazol 2021- No 40mg QD Take 40 mg [facility] 05-[address] (PROTONIX) 11:20: 00:00 daily. [facility] 40 MG EC 13 :00 l tablet ALPRAZolam 2021- No alprazolam [facility] (XANAX) 1 05-[address] MG tablet 11:19: 00:00 tablet T1T H ospita 36 :00 PO QD l ALPRAZolam 2021- No alprazolam [facility] (XANAX) 05-[address] MG tablet 11:19: 00:00 tablet T1T [facility]sp[facility] 36 :00 PO QD l ALPRAZolam 2021- No alprazolam [facility] (XANAX) 1 05-06-[address] MG tablet 11:19: 00:00 tablet T1T [facility] 36 :00 PO QD l ALPRAZolam 2021-0 2- No alprazolam [facility] (XANAX) 1 05-06-[address] MG tablet 11:19: 00:00 tablet T1T H [facility]spita 36 :00 PO QD l methocarbam 2021-0 2- No 500mg Q6H Take 500 [facility] ol -09 29-[address] (ROBAXIN) 11:18: 00:00 mouth Hospit a 500 MG 28 :00 every 6 l tablet (six) hours. methocarbam 2021-0 2021- No 500mg Q6H Take 500 [facility] -09 29-[address] (ROBAXIN) 11:18: 00:00 mouth Hospit a 500 MG 28 :00 every 6 l tablet (six) hours. methocarbam 2021-0 2021- No 500mg Q6H Take 500 [facility] 05-06-[address] (ROBAXIN) 11:18: 00:00 mouth Hospit a 500 MG 28 :00 every 6 l tablet (six) hours. methocarbam 2021-0 2021- No 500mg Q6H Take 500 [facility] 05-06-[address] (ROBAXIN) 11:18: 00:00 mouth Hospit a 500 MG 28 :00 every 6 l tablet (six) hours. mesalamine 2021-0 Yes Crohn's 2400mg Take 2,[address] [facility] (LIALDA) 1-03 disease mg by [facility] 1.2 gram EC 09:36: mouth Medic al tablet 14 daily with Center breakfast. hydroCHLORO 2-0 Yes 25mg QD Take [address] [facility] thiazide 1-03 by mouth [facility] (MICROZIDE) 09:36: daily. Medi payam 12.5 mg 14 Center capsule TERBINAFINE 2021-0 Yes 250mg QD Take [address] HCL ORAL 1-03 mg by [facility] 09:36: mouth Medical 14 daily. Center sucralfate 2-0 Yes 1g Q.25D Take [address] [facility] (CARAFATE) 1-03 by mouth 4 Mirtha es 1 gram 09:36: (four) Medical tablet 14 times Center daily. nitrofurant 2021-0 Yes 100mg Q.5D Take [address] oin, 1-03 mg by [facility] macrocrysta 09:36: mouth 2 Med ical l-monohydra 14 (two) Center te, times (MACROBID) daily. 100 MG capsule mesalamine 0 Yes Crohn's 2400mg Take 2,[address] [facility] (LIALDA) 1-03 disease mg by [facility] 1.2 gram EC 09:36: mouth Medic al tablet 14 daily with Center breakfast. hydroCHLORO 0 Yes 25mg QD Take [address] thiazide 1-03 by mouth [facility] (MICROZIDE) 09:36: daily. Medi payam 12.5 mg 14 Center capsule TERBINAFINE 0 Yes 250mg QD Take [address] HCL ORAL 1-03 mg by [facility] 09:36: mouth Medical 14 daily. Center sucralfate 0 Yes 1g Q.25D Take [address] [facility] (CARAFATE) 1-03 by mouth 4 Mirtha es 1 gram 09:36: (four) Medical tablet 14 times Center daily. nitrofurant 0 Yes 100mg Q.5D Take [address] oin, 1-03 mg by [facility] macrocrysta 09:36: mouth 2 Med ical l-monohydra [...] daily. Medicin e estradiol 2020-05 Yes estradiol [place] esthela (ESTRACE) 1 1-12 1 mg College MG tablet 09:36: tablet of 32 Medicin e montelukast 2020-05 Yes 10mg Take 10 mg [facility] (SINGULAIR) 1-12 by mouth Ronny ege 10 MG 09:36: daily. of tablet 32 Medicin e phenazopyri 2020-05 Yes 200mg Take 1 [place] esthela dine 1-12 Tablet by [facility] (PYRIDIUM) 00:00: mouth 3 of 200 MG 00 times Medicin tablet daily as e needed for Pain. Ustekinumab 2020-05 Yes [id number] INJECT [facility] (STELARA) 1- 90MG [facility] 90 MG/ML 00:00: SUBCUTANEO of injection 00 USLY EVERY Medi marlene 28 DAYS e Sertraline 2020- No Take by [facility] HCl (ZOLOFT 01-19 mouth. Colle ge OR) 15:11: 00:00 of 09 :00 Medicin e Sertraline 2020- No Take by [facility] HCl (ZOLOFT 01-19 mouth. Colle ge OR) 15:11: 00:00 of 09 : Medicin e escitalopra 2020- No 20mg Take [...] aylor 1.2 g TBEC 01-19 mg by [facility] 15:08: 00:00 mouth of 54 :00 daily. Medicin e Mesalamine 2020- No 1.2mg Take 1.2 B aylor 1.2 g TBEC 01-19 mg by [facility] 15:08: 00:00 mouth of 54 :00 daily. [...] 35 :00 Medicin e raNITIdine 2020- No [facility] HCl (ZANTAC 01-19 College OR) 15:08: 00:00 of 17 :00 Medicin e raNITIdine 2020- No [facility] HCl (ZANTAC 01-19 College OR) [...] quetiapine 2020- No 50mg Take 50 mg [facility] (SEROQUEL) 01-19 by mouth Ronny ege 50 MG 15:07: 00:00 daily. of tablet 31 :00 Medicin e quetiapine 2020- No 50mg Take 50 mg [facility] (SEROQUEL) 01-19 by mouth Ronny ege 50 MG 15:07: 00:00 daily. of tablet 31 :00 Medicin e cefUROXime 2020- No cefuroxime [facility] (CEFTIN) 01-19 axetil 500 Ronny ege 500 MG 15:06: 00:00 mg tablet of tablet 48 :00 Medicin e cefUROXime 2020- No cefuroxime [facility] (CEFTIN) 01-19 axetil 500 Ronny ege 500 MG 15:06: 00:00 mg tablet of tablet 48 :00 Medicin e Nitrofurant Yes Take by [facility] oin Monohyd 01-19 mouth. Ty e Macro 14:16: of (MACROBID 37 Medicin OR) e Nitrofurant Yes Take by [facility] oin Monohyd 01-19 mouth. Colleg e Macro 14:16: of (MACROBID 37 Medicin OR) e clonazePAM Yes 1mg Take 1 mg [facility] (KLONOPIN 9-21 by mouth 3 Ronny ege OR) 14:15: times of 26 daily. Medicin e clonazePAM 0 Yes 1mg Take 1 mg [facility] (KLONOPIN 01-19 by mouth 3 Ronny ege OR) 14:15: times of 26 daily. Medicin e busPIRone 2020-0 Yes 10mg Take 10 mg [facility] (BUSPAR) 10 - by mouth 3 Co llege MG tablet 14:15: times of 26 daily. Medicin e estradiol 0 Yes estradiol [place] esthela (ESTRACE) 1 - 1 mg College MG tablet 14:15: tablet of 26 Medicin e busPIRone 2020-0 Yes 10mg Take 10 mg [facility] (BUSPAR) 10 - by mouth 3 Co llege MG tablet 14:15: times of 26 daily. Medicin e montelukast 0 Yes 10mg Take 10 mg [facility] (SINGULAIR) 01-19 by mouth Ronny ege 10 MG 14:15: daily. of tablet 26 Medicin e estradiol 0 Yes estradiol [place] esthela (ESTRACE) 1 - 1 mg [facility] MG tablet 14:15: tablet of 26 Medicin e montelukast 0 Yes 10mg Take 10 mg [facility] (SINGULAIR) 01-19 by mouth Ronny ege 10 MG 14:15: daily. of tablet 26 Medicin e pantoprazol 0 Yes [id number] TAKE 1 [facility] e 8-05 TABLET BY [facility] (PROTONIX) 00:00: MOUTH of 40 MG 00 TWICE Medicin tablet DAILY e pantoprazol 2020-0 Yes [id number] TAKE 1 [facility] e 8-05 TABLET BY [facility] (PROTONIX) 00:00: MOUTH of 40 MG 00 TWICE Medicin tablet DAILY e pantoprazol 2020-0 Yes [id number] TAKE 1 [facility] e 8-05 TABLET BY [facility] (PROTONIX) 00:00: MOUTH of 40 MG 00 TWICE Medicin tablet DAILY e cholestyram 2020-0 Yes 1{packe Take 1 B aylor ine 6-21 t} Packet by [facility] (QUESTRAN) 00:00: mouth of 4 g packet 00 daily. Medicin e cholestyram 2020-0 Yes 1{packe Take 1 B [facility] ine 6-21 t} Packet by [facility] (QUESTRAN) 00:00: mouth of 4 g packet 00 daily. Medicin e cholestyram 2021- No 1{packe Take 1 [facility] ine 10-19 11-12 t} Packet by [facility] (IntappRAN) 00:00: 00:00 mouth of 4 g packet 00 :00 daily. Medicin e cefadroxil Yes 500 mg = 1 M emoria 500 mg oral 4-06 cap, PO, l capsule 14:00: BID, Markus 00 start medication on 08/04/20 eRx sent to pharmacy [facility] #[id number] [address] [place] [address] , X 7 day, # 14 cap, 0 Refill(s), called to pharmacy meloxicam Yes 15 mg = 1 Mem oria 15 mg oral 4-06 tab, PO, l tablet 14:00: Daily, Sony n 00 start medication on 08/04/20 eRx sent to pharmacy [facility] #[id number] [address] [place] [address] [phone], # 30 tab, 0 Refill(s), called to pharmacy Aspirin 81 Yes 81 mg = 1 Me moria MG Enteric 4-06 tab, PO, l Coated 02:00: BID, Markus Tablet 00 start medication on 08/03/[address] [facility] #[id number] [address] [place] [address] , # 60 tab, 0 Refill(s), called to pharmacy Ustekinumab Yes [id number] INJECT [facility] (STELARA) 4-06 90MG [facility] 90 MG/ML 00:00: SUBCUTANEO of injection 00 USLY EVERY Medi marlene 28 DAYS e Ustekinumab Yes [id number] INJECT [facility] (STELARA) 4-06 90MG [facility] 90 MG/ML 00:00: SUBCUTANEO of injection 00 USLY EVERY Medi marlene 28 DAYS e Ondansetron Yes 4 mg = 1 Me moria 4 MG 4-05 tab, PO, l Disintegrat 22:00: Q8H, PRN He rmann ing Tablet 00 Nausea & Vomiting, allow tablet to dissolve on tongue start medication on 08/03/20 eRx sent to pharmacy [id number] [address] [facility] [place] [address] , # 12 tab, 0 Refill(s), ... ePHEDrine No Route: IV, Me moria (ANES) 4- Drug form: l 12:42: INJ, ONCE, Markus 00 Stop date: 08/03/20 7:42:00 CDT ondansetron No Route: IV, Memoria (ANES) 4- Drug form: l 12:32: INJ, ONCE, Markus Stop date: 08/03/20 7:32:00 CDT dexamethaso No Route: IV, Memoria ne (ANES) 08-03 Drug form: l 12:32: INJ, ONCE, Markus Stop date: 08/03/20 7:32:00 CDT midazolam No Route: IV, Me moria (ANES) 4- Drug form: l 12:27: SOLN, [place] 00 ONCE, Stop date: 08/03/20 7:27:00 CDT lidocaine No Route: IV, Me moria (ANES) 4-05 Drug form: l 12:27: INJ, ONCE, [place] 00 Stop date: 08/03/20 7:27:00 CDT fentaNYL No Route: IV, Mem oria (ANES) 4- Drug form: l 12:27: INJ, ONCE, [place] 00 Stop date: 08/03/20 7:27:00 CDT propofol No Route: IV, Mem oria (ANES) 4-05 Drug form: l 12:27: INJ, ONCE, Markus Stop date: 08/03/20 7:27:00 CDT Sodium No 500 mL, Memoria Chloride 4-05 Infuse l 0.9% 12:10: Over: 20 [place] (Bolus) IV 00 minutes, Route: IV, ONCE, Dosing Weight 77.273 kg, Start date: 08/03/20 7:10:00 CDT, Stop date: 08/03/20 7:10:00 CDT Labetalol 1-0 No 10 mg, Memori a -05 Route: l 12:10: IVP, [place] 00 Q5Min, Dosing Weight 77.273, kg, PRN Elevated BP, Start date: 08/03/20 7:10:00 CDT, Duration: 5 doses or times, Stop date: Limited # of times Metoprolol 1-0 No 1 mg, Memori a 08-03 Route: l 12:10: IVP, [place] 00 Q5Min, Dosing Weight 77.273, kg, PRN Other -See Comment, Start date: 08/03/20 7:10:00 CDT, Duration: 5 doses or times, Stop date: Limited # of times Ketorolac 1-0 No 30 mg, Memori a 08-03 Route: l 12:10: IVP, ONCE, [place] 00 Dosing Weight 77.273, kg, Start date: [...] adiel 08-03 Route: l 12:10: IVP, PRN, [place] 00 Dosing Weight 77.273, kg, PRN Benzodiaze pine Reversal, Initial dose, Start date: 08/03/20 7:10:00 CDT, Duration: 30 day, Stop date: 09/02/20 7:09:00 CDT Naloxone 1-0 No 0.4 mg, Memori a -05 Route: l 12:10: IVP, Markus 00 Q2MIN, Dosing Weight 77.273, kg, PRN [...] ia 4-04 (Same as: l 04:00: Pepcid) Zofran ODT No Notes: Memor ia 4-04 (Same as: l 04:00: Zofran ODT) Acetaminoph No Notes: Max Memoria en 4-04 acetaminop l 04:00: hen 4000 mg/day (4 gm/day). (Same as: Tylenol Extra Strength) cefadroxil Yes 500 mg = 1 M emoria 500 mg oral 1-12 cap, PO, l capsule 15:00: BID, start medication on 05/12/20 [id number] [place] [address] [place] [address] , X 7 day, # 14 cap, 0 Refill(s), called to pharmacy meloxicam Yes 15 mg = 1 Mem oria 15 mg oral 1-12 tab, PO, l tablet 15:00: Daily, Sony n 00 start medication on 05/12/20 eRx sent to pharmacy [facility] #[id number] [address] [place] [address] , # 30 tab, 0 Refill(s), called to pharmacy meloxicam No Notes: Memori a -12 (Same as: l 15:00: Mobic) [place] 00 Aspirin 81 No Notes: Do Me moria MG Enteric -12 not crush l Coated 14:00: or chew. Markus Tablet 00 (Same As: Ecotrin) Cefazolin No Notes: Memori a -12 (Same As: l 09:00: Ancef, Markus 00 Kefzol) MEDICATION WASTE Product Size: 1000 mg Product Wasted: ___ mg Docusate No Notes: Memoria Sodium 100 -12 (Same as: l MG Oral 03:06: Colace) [place] Capsule 00 (Do Not [Colace] Crush) Aspirin 81 Yes 81 mg = 1 Me moria MG Enteric -12 tab, PO, l Coated 03:00: BID, [place] Tablet 00 start medication on 05/11/20 eRx sent to pharmacy [facility] #[id number] [address] [place] [address] , # 60 tab, 0 Refill(s), called to pharmacy gabapentin No Notes: Memor ia 300 MG Oral -12 (Same as: l Capsule 03:00: Neurontin) Herm chelsey 00 Saline No Notes: Memoria Flush 0.9% 12 (Same as: l 03:00: BD Markus 00 Posiflush) Ondansetron Yes 4 mg = 1 Me moria 4 MG 1-12 tab, PO, l Disintegrat 00:29: Q8H, PRN He rmann ing Tablet 00 Nausea & Vomiting, allow tablet to dissolve on tongue start medication on 05/11/20 eRx sent to pharmacy [facility] #[id number] [place] [address] , # 12 tab, 0 Refill(s). .. Klonopin No Notes: Memoria -11 (Same As: l 23:10: KlonoPIN) Markus 00 [facility] 3:Reproduc tive risk [...] Total Volume: 1,000, Start date: 05/11/20 15:03:00 CAR TESTER, Duration: 30 day, Stop date: 06/10/20 15:02:00 CAR TESTER, 1.72, m2, 0 Acetaminoph No Notes: Do M emoria en 325 MG / 05-11 not exceed l Hydrocodone 21:03: 4gm/day of Markus Bitartrate 00 acetaminop 10 MG Oral hen. Tablet (Same as: [place] 325/10) Zofran ODT No Notes: Memor ia - (Same as: l 21:03: Zofran [place] ODT) Benadryl No Notes: Memoria -11 (Same as: l 21:03: Benadryl) Markus 00 Melatonin 3 No Notes: Isreal adiel MG Extended 05-11 (Same as: l Release 21:03: Melatonin) Herm chelsey Tablet 00 Tums No Notes: Memoria -11 (Same As: l 21:03: Tums) [place] 00 Calcium Carbonate 500 mg = 200 mg elemental calcium Dose = mg calcium carbonate ( mg elemental calcium) Saline No Notes: Memoria Flush 0.9% 05-11 (Same as: l 21:03: BD Markus 00 Posiflush) ceFAZolin No Route: IV, moria (ANES) 05-11 Drug form: l 19:57: INJ, ONCE, Stop date: 05/11/20 13:57:00 CAR TESTER lidocaine No Route: IV, moria (ANES) 05-11 Drug form: l 19:52: INJ, ONCE, Stop date: 05/11/20 13:52:00 CAR TESTER fentaNYL 0 No Route: IV, Mem oria (ANES) 05-11 Drug form: l 19:52: INJ, ONCE, Stop date: 05/11/20 13:52:00 CAR TESTER propofol No Route: IV, Mem oria (ANES) 05-11 Drug form: l 19:52: INJ, ONCE, Stop date: 05/11/20 13:52:00 CAR TESTER midazolam No Route: IV, moria (ANES) 05-11 Drug form: l 19:47: SOLN, ONCE, Stop date: 05/11/20 13:47:00 CAR TESTER famotidine No Route: IV, Gustavo emoria (ANES) 05-11 Drug form: l 19:47: INJ, ONCE, Stop date: 05/11/20 13:47:00 CAR TESTER Oxycodone No 5 mg, Memoria Hydrochlori 05-11 Route: PO, l de 5 MG 19:36: Drug form: Herm chelsey Oral Tablet 00 TAB, Q4H, Dosing Weight 65.909, kg, PRN Pain Score 4-6, Start date: 05/11/20 13:36:00 CAR TESTER, Duration: 30 day, Stop date: 06/10/20 13:35:00 CAR TESTER Fentanyl 2020-0 No 25 Memoria -11 microgram, l 19:36: Route: Markus 00 IVP, Q5Min, Dosing Weight 65.909, kg, PRN Pain Score 4-6, Priority: Routine, Start date: 05/11/20 13:36:00 CAR TESTER, Duration: 4 doses or times, Stop date: Limited # of times Flumazenil 0 No 0.2 mg, Isreal adiel 05-11 Route: l 19:36: IVP, PRN, Markus 00 Dosing Weight 65.909, kg, PRN Benzodiaze pine Reversal, Initial dose, Start date: 05/11/20 13:36:00 CAR TESTER, Duration: 30 day, Stop date: 06/10/20 13:35:00 CAR TESTER Naloxone 2020-0 No 0.4 mg, Memori a 05-11 Route: l 19:36: IVP, [place] 00 Q2MIN, Dosing Weight 65.909, kg, PRN Narcotic Reversal, Start date: 05/11/20 13:36:00 CAR TESTER, Duration: 8 doses or times, Stop date: Limited # of times Meperidine 0 No 12.5 mg, Mem oria 05-11 Route: l 19:36: IVP, [place] 00 Q30Min, Dosing Weight 65.909, kg, PRN Other -See Comment, For shivering, Start date: 05/11/20 13:36:00 CAR TESTER, Duration: 2 doses or times, Stop date: Limited # of times Ondansetron 0 No 4 mg, Memor ia 05-11 Route: l 19:36: IVP, ONCE, Markus Dosing Weight 65.909, kg, PRN Nausea & Vomiting, Start date: 05/11/20 13:36:00 CAR TESTER tranexamic No Route: IV, M emoria acid (ANES) 05-11 Drug form: l 100 mg 19:29: INJ, Start Prachi date: 05/11/20 13:29:00 CAR TESTER, Stop date: 05/11/20 14:29:00 CAR TESTER propofol No Route: IV, Mem oria (ANES) 10 05-11 Drug form: l mg 19:17: INJ, Start [place] date: 05/11/20 13:17:00 CAR TESTER, Stop date: 05/11/20 14:17:00 CAR TESTER Lactated 2020-0 No Route: IV, Mem oria Ringers 05-11 Total l Injection 19:07: Volume: Prachi nn IV (ANES) 00 1,000, 1000 mL Start date: 05/11/20 13:07:00 CAR TESTER, Stop date: 05/11/20 14:07:00 CAR TESTER ceFAZolin + No Notes: Isreal adiel sterile 05-11 (Same As: l water 20 mL 06:00: AncParadise denny chelsey Kefzol) MEDICATION WASTE Product Size: 1000 mg Product Wasted: ___ mg Zofran ODT No Notes: Memor ia 05-11 (Same as: l 06:00: Zofran Markus 00 ODT) CeleBREX No Notes: Memoria 05-11 NSAID. l 06:00: Please [place] check indication . Not for seizure. (Same As: CeleBREX) Cyklokapron No Notes: Isreal adiel + Sodium 05-11 (Same As: l Chloride 06:00: Cyklokapro Her hogan 0.9% IV 100 00 n) mL Lyrica No Notes: Memoria 05-11 (Same as: l 06:00: Lyrica) Markus 00 acetaminoph No Notes: Max Memoria en 05-11 acetaminop l 06:00: hen 4000 [place] 00 mg/day (4 gm/day). (Same as: Tylenol Extra Strength) dexamethaso No Notes: Isreal adiel ne 05-11 Concentrat l 06:00: ion: Markus 00 4mg/ml famotidine No Notes: Memor ia 05-11 (Same as: l 06:00: Pepcid) [place] 00 pantoprazol Yes 40 mg = 2 M emoria e 20 mg -07 tab, PO, l oral 16:46: Daily, # Markus enteric 00 60 tab, 0 coated Refill(s) tablet estradiol 2 Yes 2 mg = 1 Me moria mg oral 1-07 tab, PO, l tablet 16:26: Daily, # [place] 00 30 tab, 0 Refill(s) 1 ML Yes See Memoria Hydromorpho 05-07 Instructio l ne 16:26: ns, PRN Markus Hydrochlori 00 Pain, pain de 1 MG/ML pump, 0 Prefilled Refill(s) Syringe [Dilaudid] Clonazepam Yes buspar, Isreal adiel 1 MG Oral 07 PO, TID, # l Tablet 16:25: 90 tab, 0 Sony n [Klonopin] 00 Refill(s) Buspar Yes 15 mg, PO, Memor ia 07 QID, 0 l 16:25: Refill(s) Markus 00 ferrous Yes 250 mg = 1 Isreal adiel sulfate 250 -07 cap, PO, l mg oral 16:24: Daily, [...] oxalate 9-10 traumatic by mouth L [facility] (LEXAPRO) 15:01: stress daily. Medi payam 10 MG 57 disorder Center tablet clonazePAM Yes 1mg Q.[id number] Take [address] [facility] (KLONOPIN) 9-10 [id number] by mouth 3 [facility] 1 MG tablet 15:01: 3D (three) Med ical 57 times Center daily . multivitami Yes 1{tbl} QD Take [address] n,tx-iron-m 9-10 tablet by Mirtha es inerals Tab 15:01: mouth Medic al 57 daily. Center terconazole 0 Yes 1{appli QD Place [address] [facility] (TERAZOL 7) 9-10 cator} applicator [facility] 0.4 % 15:01: vaginally Medical vaginal 57 nightly. [place] cream busPIRone 0 Yes 15mg Q.25D Take [address] (BUSPAR) 15 9-10 by mouth 4 Gina kes MG tablet 15:01: (four) Medica l 57 times Center daily. gabapentin 2020-0 Yes 300mg Q.[id number] Take [address] [facility] (NEURONTIN) 9-10 [id number] mg by L ukes 300 MG 15:01: 3D mouth 3 Medical capsule 57 (three) Center times daily. estrogens, 2020-0 Yes 1mg QD Take [address] conjugated, 9-10 by mouth Luke s (PREMARIN) 15:01: daily. Medic al 1.25 MG 57 Center tablet pantoprazol 2020-0 Yes 40mg Q.5D Take [address] [facility] [facility] e 9-10 by mouth 2 [facility] (PROTONIX) 15:01: (two) Medica l 40 MG 57 times Center tablet daily. ferrous 2020-0 Yes 65mg Take [address] [facility] sulfate 325 9-10 by mouth Luke s (65 FE) MG 15:01: daily with M edical tablet 57 breakfast. Center fluconazole 2020-0 Yes 100mg QD Take [address] (DIFLUCAN) 9-10 mg by [facility] 100 MG 15:01: mouth Medical tablet 57 daily. Center calcium 2020-0 Yes 600mg QD Take [facility] carbonate 9-10 mg by [facility] (OS-PAYAM) 15:01: mouth Medical 600 mg 57 daily. Center calcium (1,500 mg) Tab cholecalcif 2020-0 Yes 5000U QD Take 5,[address] estephania, 9-10 Units by [facility] vitamin D3, 15:01: mouth Medic al 125 mcg 57 daily. Center (5,000 unit) Tab zoledronic 2020-0 Yes Inject [facility] acid/mannit 9-10 intravenou Gina kes ol-water 15:01: sly. Medical (RECLAST 57 Center IV) sodium 2020-[address] [facility] chloride 9-10 intravenou [facility] 0.9% (NS) 15:01: sly Medical SolP with 57 continuous Cent er HYDROmorpho . ne 10 mg/mL Soln 20 mcg/mL baclofen 2020-0 Yes 10mg Q.[id number] Take [address] [facility] (LIORESAL) 9-10 [id number] by mouth 3 [facility] 10 MG 15:01: 3D (three) Medical tablet 57 times Center daily. sertraline 2020-0 Yes 25mg QD Take [address] (ZOLOFT) 25 9-10 by mouth Luke s MG tablet 15:01: daily. Medica l 57 Center escitalopra 2020-0 Yes post 10mg QD Take [address] m oxalate 9-10 traumatic by mouth L ukes (LEXAPRO) 15:01: stress daily. Medi payam 10 MG 57 disorder Center tablet clonazePAM 2020-0 Yes 1mg Q.[id number] Take [address] [facility] (KLONOPIN) 9-10 [id number] by mouth 3 [facility] 1 MG tablet 15:01: 3D (three) Med ical 57 times Center daily . multivitami 2020-0 Yes 1{tbl} QD Take [address] n,tx-iron-m 9-10 tablet by Mirtha es inerals Tab 15:01: mouth Medic al 57 daily. Center terconazole 2020-0 Yes 1{appli QD Place [address] [facility] (TERAZOL 7) 9-10 cator} applicator [facility] 0.4 % 15:01: vaginally Medical vaginal 57 nightly. Center cream busPIRone 2020-0 Yes 15mg Q.25D Take [address] (BUSPAR) 15 9-10 by mouth 4 Gina kes MG tablet 15:01: (four) Medica l 57 times Center daily. gabapentin 2020-0 Yes 300mg Q.[id number] Take [address] (NEURONTIN) 9-10 [id number] mg by L ukes 300 MG 15:01: 3D mouth 3 Medical capsule 57 (three) Center times daily. estrogens, 2020-0 Yes 1mg QD Take [address] conjugated, 9-10 by mouth Luke s (PREMARIN) 15:01: daily. Medic al 1.25 MG 57 Center tablet pantoprazol 2020-0 Yes 40mg Q.5D Take [address] [facility] e 9-10 by mouth 2 [facility] (PROTONIX) 15:01: (two) Medica l 40 MG 57 times Center tablet daily. ferrous 2020-0 Yes 65mg Take [address] sulfate 325 9-10 by mouth Luke s (65 FE) MG 15:01: daily with M edical tablet 57 breakfast. Center fluconazole 2020-0 Yes 100mg QD Take [address] (DIFLUCAN) 9-10 mg by [facility] 100 MG 15:01: mouth Medical tablet 57 daily. [place] calcium 2020-0 Yes 600mg QD Take 600 [facility] carbonate 9-10 mg by [facility] (OS-PAYAM) 15:01: mouth Medical 600 mg 57 daily. Center calcium (1,500 mg) Tab cholecalcif 2020-0 Yes 5000U QD Take 5,[address] estephania, 9-10 Units by [facility] vitamin D3, 15:01: mouth Medic al 125 mcg 57 daily. Center (5,000 unit) Tab zoledronic 2020-0 Yes Inject [facility] acid/mannit 9-10 intravenou Gina kes ol-water 15:01: sly. Medical (RECLAST 57 Center IV) sodium 2020-[address] [facility] chloride 9-10 [facility]ou [facility] 0.9% (NS) 15:01: [facility]ly Medical SolP with 57 continuous Cent er HYDROmorpho . ne 10 mg/mL Soln 20 mcg/mL baclofen 2020-0 Yes 10mg [id number] Take [address] [facility] (LIORESAL) 9-10 [id number] by mouth 3 [facility] 10 MG 15:01: 3D (three) Medical tablet 57 times Center daily. sertraline 2020-0 Yes 25mg QD Take [address] (ZOLOFT) 25 9-10 by mouth Luke s MG tablet 15:01: daily. Medica l 57 [place] hydrocortis 2020-0 2020- No 25mg Place 25 B [place] one 9- 09-21 mg [place] (ANUSOL-) 00:00: 00:00 rectally o f 25 MG 00 :00 at Medicin suppository bedtime. e hydrocortis 2020-0 2020- No 25mg Place 25 B [place] one 9- 09-21 mg [place] (ANUSOL-) 00:00: 00:00 rectally o f 25 MG 00 :00 at Medicin suppository bedtime. e Sertraline 2020-0 Yes Take by Mem oria HCl (ZOLOFT 8-21 mouth. l OR) 21:16: [place] 37 clonazePAM 2020-0 Yes Take 1 mg [facility] (KLONOPIN 8-21 by mouth 3 l OR) 21:16: times [place] 37 daily. busPIRone 2020-0 Yes Take 10 mg [facility] (BUSPAR) 10 8-21 by mouth 3 l MG tablet 21:16: times [place] 37 daily. estradiol 2020-0 Yes estradiol [facility] (ESTRACE) 1 8-21 1 mg l MG tablet 21:16: tablet Sony n 37 raNITIdine 2020-0 Yes [facility] HCl (ZANTAC 8-21 l OR) 21:16: [place] 37 cefUROXime 2020-0 Yes cefuroxime M em[facility] (CEFTIN) 8-21 axetil 500 l 500 MG 21:16: mg tablet Sony n tablet 37 escitalopra 2020-0 Yes Take 20 mg [facility] m (LEXAPRO) 8-21 by mouth l 20 MG 21:16: daily. [place] tablet 37 fluconazole 2020-0 Yes Take 150 Me [facility] (DIFLUCAN) 8-21 mg by l 150 MG 21:16: mouth [place] tablet 37 daily. loperamide 2020-0 Yes Take 2 mg Me moria (IMMODIUM) 8-21 by mouth l 2 MG 21:16: daily. [place] capsule 37 Mesalamine 2020-0 Yes Take 1.2 Mem oria 1.2 g TBEC 8-21 mg by l 21:16: mouth [place] 37 daily. montelukast 2020-0 Yes Take 10 mg [facility] (SINGULAIR) 8-21 by mouth l 10 MG 21:16: daily. Markus tablet 37 quetiapine 2020-0 Yes Take 50 mg M emoria (SEROQUEL) 8-21 by mouth l 50 MG 21:16: daily. [place] tablet 37 tramadol 2019-0 2020- No 50mg Take 50 mg [facility] (ULTRAM) 50 12-1618 by mouth [facility] MG tablet 19:30: 00:00 daily. of 33 :00 Medicin e sucralfate 2019-0 2020- No 1g Take 1 g [facility] (CARAFATE) 12-16-18 by mouth Ronny ege 1 g tablet 19:30: 00:00 daily. of 30 :00 Medicin e predniSONE 2019-0 2019- No 5mg Take 5 mg [facility] (DELTASONE) 12-16-18 by mouth [facility] 5 MG tablet 19:30: 00:00 daily. of 24 :00 Medicin e metronidazo 2019-0 2019- No 500mg Take 500 [facility] le (FLAGYL) 8- 08-18 mg by Colleg e 500 MG 19:30: 00:00 mouth of tablet 21 :00 daily. Medicin e metoclopram 2019-0 2019- No 10mg Take 10 mg [facility] sam 8-18 08-18 by mouth [facility] (REGLAN) 10 19:30: 00:00 every 6 of MG tablet 21 :00 hours. Medicin e hydrocortis 2019-0 2019- No 20mg Take 20 mg Kev one 8- 08-18 by mouth [facility] (CORTEF) 20 19:30: 00:00 daily. of MG tablet 15 :00 Medicin e diazepam 0 2019- No 10mg Take 10 mg [facility] (VALIUM) 10 - 08-18 by mouth [facility] mg tablet 19:30: 00:00 daily. of 12 :00 Medicin e celecoxib 2019-0 2019- No 100mg Take 100 [facility] (CELEBREX) 12-16 08-18 mg by [facility] 100 MG 19:30: 00:00 mouth of capsule 09 :00 daily. Medicin e alprazolam 0 2020- No alprazolam [facility] (XANAX) 1 -16 12-18 1 mg [facility] MG tablet 19:30: 00:00 tablet T1T o f 03 :00 PO QD Medicin e Sertraline 2019-0 Yes Take by [place] esthel[facility] HCl (ZOLOFT 8-18 mouth. Colleg e [...] daily. Medicin e estradiol 2020-0 Yes estradiol [place] [facility] (ESTRACE) 1 8-18 1 mg College MG tablet 18:53: tablet of 39 Medicin e raNITIdine 2020-0 Yes [facility] HCl (ZANTAC 8-18 College OR) 18:53: of 39 Medicin e cefUROXime 2020-0 Yes cefuroxime [facility] (CEFTIN) 8-[address] [facility] ge 500 MG 18:53: mg tablet of tablet 39 Medicin e escitalopra 2020-0 Yes 20mg Take 20 mg [facility] m (LEXAPRO) 8-18 by mouth Ronny ege 20 MG 18:53: daily. of tablet 39 Medicin e fluconazole 2020-0 Yes 150mg Take 150 [facility] (DIFLUCAN) 8-18 mg by College 150 MG 18:53: mouth of tablet 39 [...] 150 [facility] (DIFLUCAN) 8-18 mg by [facility] 150 MG 13:53: mouth of tablet 39 daily. Medicin e fluconazole 2020-0 Yes 150mg Take 150 [facility] (DIFLUCAN) 8-18 mg by [facility] 150 MG 13:53: mouth of tablet 39 daily. Medicin e fluconazole 2020-0 Yes 150mg Take 150 [facility] (DIFLUCAN) 8-18 mg by [facility] 150 MG 13:53: mouth of tablet 39 daily. Medicin e alprazolam 2020-0 No alprazolam M emoria (XANAX) 1 8-18 1 mg l MG tablet 00:00: tablet T1T [facility] rmann 00 PO QD celecoxib 2020-0 No Take 100 Isreal adiel (CELEBREX) 8-18 mg by l 100 MG 00:00: mouth Markus capsule 00 daily. diazepam 2020-0 No Take 10 mg [facility] (VALIUM) 10 8-18 by mouth l mg tablet 00:00: daily. Sony n 00 metronidazo 2020-0 No Take 500 Me moria le (FLAGYL) 8-18 mg by l 500 MG 00:00: mouth [place] tablet 00 daily. metoclopram No Take 10 mg [facility] sam 8-18 by mouth l (REGLAN) 10 00:00: every 6 Her hogan MG tablet 00 hours. predniSONE No Take 5 mg Me moria (DELTASONE) 8-18 by mouth l 5 MG tablet 00:00: daily. Herm chelsey 00 hydrocortis No Take 20 mg [facility]oria one 8-18 by mouth l (CORTEF) 20 00:00: daily. Herm chelsey MG tablet 00 sucralfate No Take 1 g Mem [facility] (CARAFATE) 8-18 by mouth l 1 g tablet 00:00: daily. Prachi nn 00 tramadol No Take 50 mg [facility] (ULTRAM) 50 8-18 by mouth l MG tablet 00:00: daily. Sony n 00 Na Yes [SUPREP] [facility] Sulfate-K 8-14 Take as l Sulfate-Mg 00:00: directed. He rmann Sulf 00 (SUPREP BOWEL PREP KIT) 17.5-3.13-1 .6 GM/177ML SOLN diphenoxyla Yes Take 1 Tab [facility] te-atropine 8-14 by mouth 4 l (LOMOTIL) 00:00: times Markus 2.5-0.025 00 daily as MG per needed for tablet Diarrhea. Na Yes [SUPREP] Kev Sulfate-K 8-14 Take as College Sulfate-Mg 00:00: directed. of Sulf 00 Medicin (SUPREP e BOWEL PREP KIT) 17.5-3.13-1 .6 GM/177ML SOLN diphenoxyla Yes 1{tbl} Take 1 Tab Kev te-atropine 8-14 by mouth 4 Co llege (LOMOTIL) 00:00: times of 2.5-0.025 00 daily as Medici n MG per needed for e tablet Diarrhea. Na 2020- No [SUPREP] [facility] Sulfate-K 8-14 - Take as Colleg e Sulfate-Mg 00:00: 00:00 directed. o f Sulf 00 :00 Medicin (SUPREP e BOWEL PREP KIT) 17.5-3.13-1 .6 GM/177ML SOLN Na 2020- No [SUPREP] [facility] Sulfate-K 8-14 - Take as Colleg e Sulfate-Mg 00:00: 00:00 directed. o f Sulf 00 :00 Medicin (SUPREP e BOWEL PREP KIT) 17.5-3.13-1 .6 GM/177ML SOLN mesalamine 2019-0 Yes Take 2,400 M emoria (LIALDA) 8-12 mg by l 1.2 gram EC 18:01: mouth Prachi nn tablet 52 daily with breakfast. pantoprazol 2019-0 Yes Take 40 mg Memoria e 40 mg EC 8-12 by mouth l tablet 18:01: daily. 52 clonazePAM 2019-0 Yes Take 1 mg Me moria 1 mg tablet 8-12 by mouth 3 l 18:01: (three) Markus 52 times daily. metroNIDAZO 2019-0 Yes Take 500 Me moria LE (FLAGYL) 8-12 mg by l 500 mg 18:01: mouth 2 [place] tablet 52 (two) times daily. multivitami 2020-0 Yes Take 1 Isreal adiel n, 8-12 tablet by l tx-minerals 18:01: mouth Prachi nn (COMPLETE 52 daily. MULTIVITAMI N) tablet ranitidine 2019-0 Yes Memoria 150 mg 8-12 l capsule 18:01: 52 sertraline 2019-0 Yes Take by Mem oria HCl 8-12 mouth. l (SERTRALINE 18:01: Sony n ORAL) 52 baclofen 10 2020-0 Yes baclofen Me moria mg tablet 8-12 10 mg l 18:01: tablet 52 busPIRone 2019-0 Yes Take 10 mg Me moria 10 mg 8-12 by mouth. l tablet 18:01: 52 hydroCHLORO 2020-0 Yes hydrochlor [facility] thiazide 25 8-12 othiazide l mg tablet 18:01: 25 mg 52 tablet hydrocortis 2019-0 Yes Take 20 mg [facility] one 20 mg 8-12 by mouth. l tablet 18:01: montelukast 2020-0 Yes montelukas [facility] 10 mg 8-12 t 10 mg l tablet 18:01: tablet 52 QUEtiapine 2020-0 Yes quetiapine M emoria 50 mg 8-12 50 mg l tablet 18:01: tablet [place] 52 valACYclovi 2020-0 Yes valacyclov [facility] (VALTREX) 8-[address] 1000 MG 00:00: tablet [facility] tablet 00 l valACYclovi 2020-0 Yes valacyclov [facility] (VALTREX) 8-[address] 1000 MG 00:00: tablet [facility] tablet 00 l valACYclovi 2020-0 Yes valacyclov [facility] (VALTREX) 8-[address] 1000 MG 00:00: tablet [facility] tablet 00 l valACYclovi 2020-0 Yes valacyclov [facility] (VALTREX) 8-[address] 1000 MG 00:00: tablet [facility]osp[facility] tablet 00 l methylPREDN 2019-0 Yes Take 21 Mem oria ISolone 7-09 tablets by l (MEDROL, 00:00: mouth Markus CHERISE,) 4 mg 00 SEE-INSTRU tablets CTIONS. follow package directions terbinafine 2019-0 Yes TK 1 T PO M emoria HCl 250 mg 6-24 QD l tablet 00:00: Markus 00 STELARA 90 2019-0 Yes INJECT Memor ia MG/ML 3-27 90MG l injection 00:00: SUBCUTANEO He rmann 00 USLY EVERY 28 DAYS STELARA 90 2020-0 Yes [id number] INJECT [facility] MG/ML 3-27 90MG College injection 00:00: SUBCUTANEO of 00 USLY EVERY Medicin 28 DAYS e alprazolam 2019-0 Yes alprazolam M emoria (XANAX) 1 3-12 1 mg l MG tablet 18:27: tablet T1T He rmann 32 PO QD celecoxib 2019-0 Yes Take 100 Isreal adiel (CELEBREX) 3-12 mg by l 100 MG 18:27: mouth Markus capsule 32 daily. diazepam 2019-0 Yes Take 10 mg Mem [facility] (VALIUM) 10 3-12 by mouth l mg tablet 18:27: daily. Sony n 32 metronidazo 2020-0 Yes Take 500 Me moria le (FLAGYL) 3-12 mg by l 500 MG 18:27: mouth [place] tablet 32 daily. metoclopram 2019-0 Yes Take 10 mg Memoria sam 3-12 by mouth l (REGLAN) 10 18:27: every 6 Her hogan MG tablet 32 hours. predniSONE 2020-0 Yes Take 5 mg Me moria (DELTASONE) 3-12 by mouth l 5 MG tablet 18:27: daily. Herm chelsey 32 hydrocortis 2020-0 Yes Take 20 mg [facility]oria one 3-12 by mouth l (CORTEF) 20 18:27: daily. Herm chelsey MG tablet 32 sucralfate 2020-0 Yes Take 1 g Mem [facility]ria (CARAFATE) 3-12 by mouth l 1 g tablet 18:27: daily. Prachi nn 32 tramadol 2020-0 Yes Take 50 mg Mem [facility] (ULTRAM) 50 3-12 by mouth l MG tablet 18:27: daily. Sony n 32 celecoxib 2020-0 Yes 100mg Take 100 [place] est[facility]a (CELEBREX) 3-12 mg by [facility] 100 MG 16:41: mouth of capsule 28 [...] sucralfate 2020-0 Yes 1g Take 1 g [place] estheal (CARAFATE) 3-12 by mouth Colle ge 1 g tablet 16:41: daily. of 28 Medicin e tramadol 2020-0 Yes 50mg Take 50 mg [place] esthela (ULTRAM) 50 3-12 by mouth Ronny ege MG tablet 16:41: daily. of 28 Medicin e escitalopra 2020-0 Yes 20mg Take 20 mg Kev m (LEXAPRO) 3-12 by mouth Ronny ege 20 MG 16:29: daily. of tablet 07 Medicin e diazepam 2020-0 Yes 10mg Take 10 mg [place] est[facility]a (VALIUM) 10 3-12 by mouth Ronny ege mg tablet 16:29: daily. of 07 Medicin e fluconazole 2020-0 Yes 150mg Take 150 [facility] (DIFLUCAN) 3-12 mg by [facility] 150 MG 16:29: mouth of tablet 07 [...] [facility] le (FLAGYL) 3-12 mg by [facility] 500 MG 16:29: mouth of tablet 07 daily. Medicin e metoclopram 2020-0 Yes 10mg Take 10 mg Kev sam 3-12 by mouth [facility] (REGLAN) 10 16:29: every 6 of MG tablet 07 hours. Medicin e montelukast 2020-0 Yes 10mg Take 10 mg [facility] (SINGULAIR) 3-12 by mouth Ronny ege 10 MG 16:29: daily. of tablet 07 Medicin e estradiol 2020-0 Yes estradiol [place] [facility] (ESTRACE) 1 3-12 1 mg [facility] MG tablet 16:19: tablet of 16 Medicin e raNITIdine 2020-0 Yes Kev HCl (ZANTAC 3-12 College OR) 16:19: of 16 Medicin e cefUROXime 2020-0 Yes cefuroxime [facility] (CEFTIN) 3-12 axetil 500 [facility] 500 MG 16:19: mg tablet of tablet 16 Medicin e alprazolam 2020-0 Yes alprazolam [facility] (XANAX) 1 3-12 1 mg [facility] MG tablet 16:19: tablet T1T of 16 PO QD Medicin e Sertraline 2020-0 Yes Take by [place] [facility] HCl (ZOLOFT 3-12 mouth. Colleg e [...] 39 daily. Medicin e pantoprazol 2020-0 Yes Take 1 Tab Memoria e 3-02 by mouth 2 l (PROTONIX) 00:00: times Sony n 40 MG 00 daily tablet (before meals). 1 tablet by mouth every day pantoprazol 2020-0 Yes [id number] 40mg Take 1 Tab [facility] e 3-02 by mouth 2 College (PROTONIX) 00:00: times of 40 MG 00 daily Medicin tablet (before e meals). 1 tablet by mouth every day pantoprazol 2020-0 Yes [id number] 40mg Take 1 Tab Kev e 3-02 by mouth 2 College (PROTONIX) 00:00: times of 40 MG 00 daily Medicin tablet (before e meals). 1 tablet by mouth every day PANTOPRAZOL 2020-0 2020- No 40mg Take 40 mg Kev E SODIUM OR 2-25 02-25 by mouth [facility] 19:38: 00:00 daily. of 50 :00 Medicin e PANTOPRAZOL 2020-0 No Take 40 mg Memoria E SODIUM OR 2-25 by mouth l 00:00: daily. Pantoprazol 2020-0 Yes Take 40 mg Memoria e Sodium 40 2-25 by mouth l MG PACK 00:00: daily. Pantoprazol 2020-0 Yes 40mg Take 40 mg Kev e Sodium 40 2-25 by mouth Ronny ege MG PACK 00:00: daily. of Medicin e Pantoprazol 2020-0 Yes 40mg Take 40 mg [facility] e Sodium 40 2-25 by mouth Ronny ege MG PACK 00:00: daily. of 00 Medicin e PANTOPRAZOL 2020-0 Yes Take 40 mg Memoria E SODIUM OR 2-19 by mouth l 17:27: daily. Markus Sertraline 2019-0 Yes Take by [place] [facility] HCl (ZOLOFT 2-19 mouth. Colleg e OR) 16:59: of 05 Medicin e PANTOPRAZOL 2020-0 Yes 40mg Take 40 mg [facility] E SODIUM OR 2-19 by [...] Medicin e Sertraline 2020-0 Yes Take by [place] [facility] HCl (ZOLOFT 2-19 mouth. Colleg e [...] 2020-0 2020- No 300mg 300 mg as Kev en-codeine 2-12 02-12 needed. Colle ge (TYLENOL/CO 14:22: 00:00 of JUAN #3) 23 :00 Medicin 300-30 MG e per tablet Sertraline 2020-0 Yes Take by [place] [facility] HCl (ZOLOFT 2-12 mouth. Colleg e [...] 14:21: times of 59 daily. Medicin e acetaminoph 2020-0 No 300 mg as M emoria en-codeine 2-12 needed. l (TYLENOL/CO 00:00: Sony MARTINEZ #3) 00 300-30 MG per tablet busPIRone 2018-05 Yes buspirone [facility] (BUSPAR) 15 1-[address] MG tablet 00:00: tablet one [facility] 00 po four l times a day busPIRone 2018-05 Yes buspirone [facility] (BUSPAR) 15 1-[address] MG tablet 00:00: tablet one [facility] 00 po four l times a day busPIRone 2018-05 Yes buspirone [facility] (BUSPAR) 15 1-[address] MG tablet 00:00: tablet one [facility] 00 po four l times a day busPIRone 2018- Yes buspirone [facility] (BUSPAR) 15 1-[address] MG tablet 00:00: tablet one [facility] 00 po four l times a day acetaminoph No Take 1 Tab [facility] en-codeine 12-21 by mouth. l (TYLENOL 00:00: [place] #4) 300-60 00 MG per tablet acetaminoph Yes 1{tbl} Take 1 Tab Kev en-codeine 12-21 by mouth. Ronny ege (TYLENOL 00:00: of #4) 300-60 00 Medicin MG per e tablet acetaminoph 2021- No 1{tbl} Q.5D Take 1 M ethodi en-codeine 12-[address] (TYLENOL 00:00: 00:00 mouth 2 Hospi ta WITH 00 :00 (two) l CODEINE #4) times a 300-60 mg day. per tablet gabapentin 2021- No TAKE Method i (NEURONTIN) 12-21 ONE(1) st 300 mg 00:00: 00:00 CAPSULE BY [facility] capsule 00 :00 MOUTH l TWICE DAILY acetaminoph 2021- No 1{tbl} Q.5D Take 1 M ethodi en-codeine 12-[address] (TYLENOL 00:00: 00:00 mouth 2 Hospi ta WITH 00 :00 (two) l CODEINE #4) times a 300-60 mg day. per tablet gabapentin 2021- No TAKE Method i (NEURONTIN) 12-21 ONE(1) st 300 mg 00:00: 00:00 CAPSULE BY [facility] capsule 00 :00 MOUTH l TWICE DAILY acetaminoph 2021- No 1{tbl} Q.5D Take 1 M ethodi en-codeine 12-[address] (TYLENOL 00:00: 00:00 mouth 2 Hospi ta WITH 00 :00 (two) l CODEINE #4) times a 300-60 mg day. per tablet gabapentin 2021- No TAKE [facility] i (NEURONTIN) 12-21 ONE(1) st 300 mg 00:00: 00:00 CAPSULE BY [facility] capsule 00 :00 MOUTH l TWICE DAILY acetaminoph 2021- No 1{tbl} Q.5D Take 1 M ethodi en-codeine 12-[address] (TYLENOL 00:00: 00:00 mouth 2 Hospi ta WITH 00 :00 (two) l CODEINE #4) times a 300-60 mg day. per tablet gabapentin 2021- TAKE [facility] i (NEURONTIN) 12-21 ONE(1) st 300 mg 00:00: 00:00 CAPSULE BY [facility] capsule 00 :00 MOUTH l TWICE DAILY acetaminoph 2019- No 1{tbl} Take 1 Tab [facility] en-codeine 12-21 08-18 by mouth. Col lege (TYLENOL 00:00: 00:00 of #4) 300-60 00 :00 Medicin MG per e tablet acetaminoph Yes 300 mg as M emoria en-codeine 8-22 needed. l (TYLENOL/CO 14:16: Sony MARTINEZ #3) 10 300-30 MG per tablet busPIRone Yes 10mg Take 10 mg [facility] (BUSPAR) 10 8-20 by mouth 3 Co llege MG tablet 15:05: times of 52 daily. Medicin e Sertraline Yes Take by [place] [facility] HCl (ZOLOFT 8-20 mouth. Colleg e OR) 15:03: of 59 Medicin e PANTOPRAZOL Yes 40mg Take 40 mg [facility] E SODIUM OR 8-20 by mouth Ronny ege 15:03: daily. of 59 Medicin e clonazePAM 20190 Yes 1mg Take 1 mg [facility] (KLONOPIN 8-20 by mouth 3 Ronny ege OR) 15:03: times of 59 daily. Medicin e acetaminoph Yes 300mg 300 mg as [facility] en-codeine 8-20 needed. Colleg e (TYLENOL/CO 15:03: of JUAN #3) 59 Medicin 300-30 MG e per tablet Cholestyram No Take 4 g Me moria ine 4 8-20 by mouth 3 l GM/DOSE 00:00: times Markus OLIVO 00 daily. dicyclomine 20190 Yes Take 1 Cap [facility]oria (BENTYL) 10 8-20 by mouth 4 l MG capsule 00:00: times Sony n 00 daily (before meals and nightly). 1 by mouth four times a day Ferrous 2018-0 Yes Take 325 Memori a Sulfate 8-20 mg by l (IRON) 325 00:00: mouth two He rmann (65 Fe) MG 00 times TABS daily. Cholecalcif 2019- Yes Take 2,000 Memoria estephania 8-20 Units by l (VITAMIN D) 00:00: mouth Prachi nn 2000 units 00 daily. CAPS cholecalcif 2019-0 Yes 2000U Take 2,000 [facility] estephania, 8-[address] vitamin D3, 00:00: mouth. [facility] (VITAMIN 00 l D3) 2,000 unit capsule capsule cholecalcif 2019-0 Yes 2000U Take 2,000 Methodi estephania, 8-[address] vitamin D3, 00:00: mouth. [facility] (VITAMIN 00 l D3) 2,000 unit capsule capsule cholecalcif 2019-0 Yes 2000U Take 2,000 Methodi estephania, 8-[address] vitamin D3, 00:00: mouth. [facility] (VITAMIN 00 l D3) 2,000 unit capsule capsule cholecalcif 2019-0 Yes 2000U Take 2,000 Methodi estephania, 8-[address] vitamin D3, 00:00: mouth. [facility] (VITAMIN 00 l D3) 2,000 unit capsule capsule dicyclomine 2018-0 Yes [id number] 10mg Take 1 Cap [facility] (BENTYL) 10 8-20 by mouth 4 Co llege MG capsule 00:00: times of 00 daily Medicin (before e meals and nightly). 1 by mouth four times a day Ferrous 2018- Yes [id number] 325mg Take 325 [facility] Sulfate 8-20 mg by [facility] (IRON) 325 00:00: mouth two of (65 Fe) MG 00 times Medicin TABS daily. e Cholecalcif 2019-0 Yes [id number] 2000U Take 2,000 [facility] estephania 8-20 Units by [facility] (VITAMIN D) 00:00: mouth of 2000 units 00 daily. Medicin CAPS e Cholestyram 2018-0 Yes [id number] 4g Take 4 g Kev ine 4 8-20 by mouth 3 College GM/DOSE 00:00: times of POWD 00 daily. Medicin e dicyclomine 2019-0 Yes [id number] 10mg Take 1 Cap [facility] (BENTYL) 10 8-20 by mouth 4 Co llege MG capsule 00:00: times of 00 daily Medicin (before e meals and nightly). 1 by mouth four times a day Ferrous 2019-0 Yes [id number] 325mg Take 325 [facility] Sulfate 8-20 mg by College (IRON) 325 00:00: mouth two of (65 Fe) MG 00 times Medicin TABS daily. e Cholecalcif 2019-0 Yes [id number] 2000U Take 2,000 [facility] estephania 8-20 Units by [facility] (VITAMIN D) 00:00: mouth of 2000 units 00 daily. Medicin CAPS e Cholestyram 2019-0 Yes [id number] 4g Take 4 g Kev ine 4 8-20 by mouth 3 College GM/DOSE 00:00: times of POWD 00 daily. Medicin e dicyclomine 2019-0 Yes [id number] 10mg Take 1 Cap Kev (BENTYL) 10 8-20 by mouth 4 Co llege MG capsule 00:00: times of 00 daily Medicin (before e meals and nightly). 1 by mouth four times a day Ferrous 2019-0 Yes [id number] 325mg Take 325 [facility] Sulfate 8-20 mg by [facility] (IRON) 325 00:00: mouth two of (65 Fe) MG 00 times Medicin TABS daily. e Cholecalcif 2019-0 Yes [id number] 2000U Take 2,000 [facility] estephania 8-20 Units by [facility] (VITAMIN D) 00:00: mouth of 2000 units 00 daily. Medicin CAPS e Cholestyram 2019-0 Yes [id number] 4g Take 4 g [facility] ine 4 8-20 by mouth 3 [facility] GM/DOSE 00:00: times of POWD 00 daily. Medicin e dicyclomine 2019-0 Yes [id number] 10mg Take 1 Cap [facility] (BENTYL) 10 8-20 by mouth 4 Co llege MG capsule 00:00: times of 00 daily Medicin (before e meals and nightly). 1 by mouth four times a day Ferrous 2019-0 Yes [id number] 325mg Take 325 [facility] Sulfate 8-20 mg by College (IRON) 325 00:00: mouth two of (65 Fe) MG 00 times Medicin TABS daily. e Cholecalcif 2019-0 Yes [id number] 2000U Take 2,000 Kev estephania 8-20 Units by College (VITAMIN D) 00:00: mouth of 2000 units 00 daily. Medicin CAPS e Cholestyram 2019-0 Yes [id number] 4g Take 4 g Kev ine 4 8-20 by mouth 3 College GM/DOSE 00:00: times of POWD 00 daily. Medicin e dicyclomine 2019-0 Yes [id number] 10mg Take 1 Cap Kev (BENTYL) 10 8-20 by mouth 4 Co llege MG capsule 00:00: times of 00 daily Medicin (before e meals and nightly). 1 by mouth four times a day Ferrous 2019-0 Yes [id number] 325mg Take 325 [facility] Sulfate 8-20 mg by [facility] (IRON) 325 00:00: mouth two of (65 Fe) MG 00 times Medicin TABS daily. e Cholecalcif 2019-0 Yes [id number] 2000U Take 2,000 Kev estephania 8-20 Units by [facility] (VITAMIN D) 00:00: mouth of 2000 units 00 daily. Medicin CAPS e dicyclomine 2019-0 Yes [id number] 10mg Take 1 Cap [facility] (BENTYL) 10 8-20 by mouth 4 Co llege MG capsule 00:00: times of 00 daily Medicin (before e meals and nightly). 1 by mouth four times a day Ferrous 2019-0 Yes [id number] 325mg Take 325 [facility] Sulfate 8-20 mg by [facility] (IRON) 325 00:00: mouth two of (65 Fe) MG 00 times Medicin TABS daily. e Cholecalcif 2019-0 Yes [id number] 2000U Take 2,000 Kev estephania 8-20 Units by [facility] (VITAMIN D) 00:00: mouth of 2000 units 00 daily. Medicin CAPS e Ferrous 2019-0 Yes [id number] 325mg Take 325 [facility] Sulfate 8-20 mg by [facility] (IRON) 325 00:00: mouth two of (65 Fe) MG 00 times Medicin TABS daily. e Cholecalcif 2019-0 Yes [id number] 2000U Take 2,000 [facility] estephania 8-20 Units by [facility] (VITAMIN D) 00:00: mouth of 2000 units 00 daily. Medicin CAPS e Ferrous 2019- Yes [id number] 325mg Take 325 [facility] Sulfate 8-20 mg by College (IRON) 325 00:00: mouth two of (65 Fe) MG 00 times Medicin TABS daily. e Cholecalcif 2019- Yes [id number] 2000U Take 2,000 Kev estephania 8-20 Units by [facility] (VITAMIN D) 00:00: mouth of 2000 units 00 daily. Medicin CAPS e Ferrous 2019- Yes [id number] 325mg Take 325 [facility] Sulfate 8-20 mg by [facility] (IRON) 325 00:00: mouth two of (65 Fe) MG 00 times Medicin TABS daily. e Cholecalcif 2019- Yes [id number] 2000U Take 2,000 [facility] estephania 8-20 Units by [facility] (VITAMIN D) 00:00: mouth of 2000 units 00 daily. Medicin CAPS e Cholestyram Yes [id number] 4g Take 4 g [facility] ine 4 8-20 by mouth 3 College GM/DOSE 00:00: times of POWD 00 daily. Medicin e dicyclomine 2020- No [id number] 10mg Take 1 Cap Kev (BENTYL) 10 8-18 01-21 by mouth 4 C ollege MG capsule 00:00: 00:00 times of 00 :00 daily Medicin (before e meals and nightly). 1 by mouth four times a day dicyclomine 2018-2020- No [id number] 10mg Take 1 Cap [facility] (BENTYL) 10 8-18 01-21 by mouth 4 C ollege MG capsule 00:00: 00:00 times of 00 :00 daily Medicin (before e meals and nightly). 1 by mouth four times a day Cholestyram 2020- No [id number] 4g Take 4 g Kev ine 4 8-20 08-18 by mouth 3 College GM/DOSE 00:00: 00:00 times of POWD 00 :00 daily. Medicin e escitalopra Yes escitalopr [facility]oria m (LEXAPRO) 8-08 am 10 mg l 10 MG 00:00: tablet Markus tablet 00 escitalopra Yes escitalopr Memoria m oxalate 8-08 am 10 mg l 10 mg 00:00: tablet Markus tablet 00 escitalopra 2018- Yes TK 1 T PO M ethodi m (LEXAPRO) 8-[address] 10 MG 00:00: Hospita tablet 00 l escitalopra 2019-0 Yes TK 1 T PO M ethodi m (LEXAPRO) 8-[address] 10 MG 00:00: [facility]osp[facility] tablet 00 l escitalopra 2018-0 Yes TK 1 T PO M ethodi m (LEXAPRO) 8-[address] 10 MG 00:00: [facility]ospita tablet 00 l escitalopra 2018-0 Yes TK 1 T PO M ethodi m (LEXAPRO) 8-[address] 10 MG 00:00: Hospita tablet 00 l escitalopra Yes escitalopr [facility] (LEXAPRO) 8-08 am 10 mg Ronny ege 10 MG 00:00: tablet of tablet 00 Medicin e escitalopra Yes escitalopr Kev m (LEXAPRO) 8-08 am 10 mg Ronny ege 10 MG 00:00: tablet of tablet 00 Medicin e escitalopra 0 Yes escitalopr Kev m (LEXAPRO) 8-08 am 10 mg Ronny ege 10 MG 00:00: tablet of tablet 00 Medicin e escitalopra 0 Yes escitalopr [facility] (LEXAPRO) 8-08 am 10 mg Ronny ege 10 MG 00:00: tablet of tablet 00 Medicin e escitalopra Yes escitalopr Kev m (LEXAPRO) 8-08 am 10 mg Ronny ege 10 MG 00:00: tablet of tablet 00 Medicin e hydrocortis Yes Take 1 Tab Memoria one 7-30 by mouth l (CORTEF) 10 00:00: two times H ermann MG tablet 00 daily for 90 days. hydrocortis 2019- No 10mg Take 1 Tab Kev one 7-30 10-29 by mouth College (CORTEF) 10 00:00: 04:59 two times of MG tablet 00 :00 daily for Medic in 90 days. e valACYclovi Yes Memori a r 1 gram 7-19 l tablet 00:00: Markus 00 hydrocortis 2021- No U REC BID [facility]i one 11-[address] (ANUSOL-HC) 00:00: 00:00 DAYS Hospi ta 2.5 % 00 :00 l rectal cream valACYclovi 2021- No Metho di r (VALTREX) 11-16 st 1000 MG 00:00: 00:00 Hospita tablet 00 :00 l hydrocortis 2021- No U REC BID Methodi one 11-[address] (ANUSOL-HC) 00:00: 00:00 DAYS Hospi ta 2.5 % 00 :00 l rectal cream valACYclovi 2021- No Metho di r (VALTREX) 11-16 st 1000 MG 00:00: 00:00 [facility]ospita tablet 00 :00 l hydrocortis 2021- No U REC BID Methodi one 11-[address] (ANUSOL-HC) 00:00: 00:00 DAYS Hospi ta 2.5 % 00 :00 l rectal cream valACYclovi 2021- No Metho di r ([facility]REX) 11-16 st 1000 MG 00:00: 00:00 Hospita tablet 00 :00 l hydrocortis 2021- No U REC BID Methodi [...] VAGINALLY l cream QD FOR 7 DAYS terconazole 2021- No I 1 Metho di (TERAZOL 7) 10-23 APPLICATOR s t 0.4 % 00:00: 00:00 FUL Hospita vaginal 00 :00 VAGINALLY l cream QD FOR 7 DAYS terconazole 2021- No I 1 Metho di (TERAZOL 7) 10-23 APPLICATOR s t 0.4 % 00:00: 00:00 FUL [facility] vaginal 00 :00 VAGINALLY l cream QD FOR 7 DAYS terconazole 2021- No I 1 Metho di (TERAZOL 7) 10-23 APPLICATOR s t 0.4 % 00:00: 00:00 FUL [facility] vaginal 00 :00 VAGINALLY l cream QD FOR 7 DAYS Escitalopra Yes DAILY [facility] m Oxalate 6-18 l 00:00: Clonazepam 2018- Yes FOUR TIMES M emoria 6-18 DAILY PRN l 00:00: For Anxiety Pantoprazol Yes TWICE [facility] e 6-18 DAILY l 00:00: Prednisone Yes Cherelle TWICE Mem oria 6-18 Mariee DAILY l 00:00: pantoprazol Yes TAKE 1 Meth deepti e 6-18 TABLET BY st (PROTONIX) 00:00: MOUTH [facility] 40 MG EC 00 TWICE l tablet DAILY pantoprazol Yes TAKE 1 Meth deepti e 6-[address] (PROTONIX) 00:00: MOUTH [facility] a 40 MG EC 00 TWICE l tablet DAILY pantoprazol Yes TAKE 1 Meth deepti e 6-[address] (PROTONIX) 00:00: MOUTH Hospit a 40 MG EC 00 TWICE l tablet DAILY pantoprazol Yes TAKE 1 Meth deepti e 6-[address] (PROTONIX) 00:00: MOUTH Hospit a 40 MG EC 00 TWICE l tablet DAILY Clotrimazol Yes Place 1 Mem oria e 5-07 applicatio l (CLOTRIMAZO 00:00: n Sony n LE-7) 1 % 00 vaginally CREA daily. pantoprazol No Take 1 Tab Memoria e 5-07 by mouth 2 l (PROTONIX) 00:00: times Sony espinosa 40 MG 00 daily tablet (before meals). 1 tablet by mouth every day Ustekinumab Yes Inject 90 M emoria (STELARA) 5-07 mg into l 90 MG/ML 00:00: the skin Prachi nn injection 00 every 28 days. fluconazole No Take 1 Tab [facility] (DIFLUCAN) 5-07 by mouth l 150 MG 00:00: daily. - [place] tablet 00 then repeat dose in 7 weeks Clotrimazol Yes [id number] 1{appli Place 1 Kev e 5-07 cation} applicatio Colleg e (CLOTRIMAZO 00:00: n of ) 1 % 00 vaginally Medic in CREA daily. e pantoprazol Yes [id number] 40mg Take 1 Tab [facility] e 5-07 by mouth 2 College (PROTONIX) 00:00: times of 40 MG 00 daily Medicin tablet (before e meals). 1 tablet by mouth every day Ustekinumab Yes 90mg Inject 90 [facility] (STELARA) 5-07 mg into College 90 MG/ML 00:00: the skin of injection 00 every 28 Medici n days. e Clotrimazol Yes [id number] 1{appli Place 1 [facility] e 5-07 cation} applicatio [facility] (CLOTRIMAZO 00:00: n of ) 1 % 00 vaginally Medic in CREA daily. e pantoprazol Yes [id number] 40mg Take 1 Tab Kev e 5-07 by mouth 2 College (PROTONIX) 00:00: times of 40 MG 00 daily Medicin tablet (before e meals). 1 tablet by mouth every day Ustekinumab Yes 90mg Inject 90 [facility] (STELARA) 5-07 mg into College 90 MG/ML 00:00: the skin of injection 00 every 28 Medici n days. e Clotrimazol Yes [id number] 1{appli Place 1 Kev e 5-07 cation} [facility]atio [facility] (CLOTRIMAZO 00:00: n of LE7) 1 % 00 vaginally Medic in CREA daily. e Ustekinumab Yes 90mg Inject 90 [facility] (STELARA) 5-07 mg into College 90 MG/ML 00:00: the skin of injection 00 every 28 Medici n days. e Clotrimazol Yes [id number] 1{appli Place 1 [facility] e 5-07 cation} applicatio [facility] (CLOTRIMAZO 00:00: n of ) 1 % 00 vaginally Medic in CREA daily. e Ustekinumab Yes 90mg Inject 90 [facility] (STELARA) 5-07 mg into College 90 MG/ML 00:00: the skin of injection 00 every 28 Medici n days. e Clotrimazol Yes [id number] 1{appli Place 1 [facility] e 5-07 cation} applicatio [facility] (CLOTRIMAZO 00:00: n of ) 1 % 00 vaginally Medic in CREA daily. e Clotrimazol Yes [id number] 1{appli Place 1 [facility] e 5-07 cation} applicatio [facility] (CLOTRIMAZO 00:00: n of ) 1 % 00 vaginally Medic in CREA daily. e Clotrimazol Yes [id number] 1{appli Place 1 [facility] e 5-07 cation} applicatio [facility] (CLOTRIMAZO 00:00: n of ) 1 % 00 vaginally Medic in CREA daily. e Clotrimazol Yes [id number] 1{appli Place 1 [facility] e 5-07 cation} applicatio [facility] (CLOTRIMAZO 00:00: n of ) 1 % 00 vaginally Medic in CREA daily. e fluconazole Yes [id number] 150mg Take 1 Tab [facility] (DIFLUCAN) 5-07 by mouth Colle ge 150 MG 00:00: daily. - of tablet 00 then Medicin repeat e dose in 7 weeks Clotrimazol Yes [id number] 1{appli Place 1 [facility] e 5-07 cation} applicatio [facility] (CLOTRIMAZO 00:00: n of ) 1 % 00 vaginally Medic in CREA daily. e pantoprazol Yes [id number] 40mg Take 1 Tab [facility] e 5-07 by mouth 2 [...] skin. Hos augustin injection 00 :00 l ustekinumab 2021- No 90mg Inject 90 [facility] (STELARA) 5-07 01-[address] 90 mg/mL 00:00: 00:00 the skin. Hos aug[facility]in injection 00 :00 l ustekinumab 2021- No 90mg Inject 90 [facility] (STELARA) 5 01-[address] 90 mg/mL 00:00: 00:00 the skin. Hos aug[facility]in injection 00 :00 l ustekinumab 2021- No 90mg Inject 90 [facility] (STELARA) 507 01-[address] 90 mg/mL 00:00: 00:00 the skin. Hos aug[facility]in injection 00 :00 l pantoprazol 2019- No [id number] 40mg Take 1 Tab [facility] e 09-04 03-02 by mouth 2 College (PROTONIX) 00:00: 00:00 times of 40 MG 00 :00 daily Medicin tablet (before e meals). 1 tablet by mouth every day fluconazole 2020- No [id number] 150mg Take 1 Tab [facility] (DIFLUCAN) 09-04 02-12 by mouth Ronny ege 150 MG 00:00: 00:00 daily. - of tablet 00 :00 then Medicin repeat e dose in 7 weeks Oxycodone No TK ONE T Isreal adiel HCl 10 MG 5-01 PO Q 4 H l TABS 00:00: PRN P [place] 00 Oxycodone Yes TK ONE T Bayl or HCl 10 MG 5-01 PO Q 4 H Colleg e TABS 00:00: PRN P of 00 Medicin e Oxycodone Yes TK ONE T [facility] or HCl 10 MG 5-01 PO Q 4 H Colleg e TABS 00:00: PRN P of 00 Medicin e Oxycodone 2020- No TK ONE T [place] esthela HCl 10 MG 5-01 02-19 PO Q 4 H [facility] ge TABS 00:00: 00:00 PRN P of 00 :00 Medicin e Oxycodone 2020- No TK ONE T [place] esthela HCl 10 MG 08-29 PO Q 4 H Colle ge TABS 00:00: 00:00 PRN P of 00 :00 Medicin e gabapentin Yes Take 300 Mem oria (NEURONTIN) 4-25 mg by l 300 MG 00:00: mouth [place] capsule 00 daily. clindamycin No TK ONE C Me moria (CLEOCIN) 4-25 PO Q 6 l 300 MG 00:00: HOURS FOR Sony n capsule 00 14 DAYS gabapentin Yes gabapentin M emoria 300 mg 4-25 300 mg l capsule 00:00: capsule [place] 00 gabapentin 2018- Yes 300mg Take 300 [facility] (NEURONTIN) 4-25 mg by College 300 MG 00:00: mouth of capsule 00 daily. Medicin e gabapentin Yes 300mg Take 300 [facility] (NEURONTIN) 4-25 mg by College 300 MG 00:00: mouth of capsule 00 daily. Medicin e gabapentin 2018- Yes 300mg Take 300 [facility] (NEURONTIN) 4-25 mg by College 300 MG 00:00: mouth of capsule 00 daily. Medicin e gabapentin 2018-0 Yes 300mg Take 300 [facility] (NEURONTIN) [...] capsule 00 :00 14 DAYS Medicin e Ustekinumab 2017-05 Yes Stelara 90 Memoria (STELARA) 2-12 mg/mL l 90 mg/mL SC 00:00: subcutaneo [place] injection 00 us syringe STELARA 90 2017-05 Yes INJECT [facility] mg/mL Syrg 2-12 [facility] 00:[facility]: SUBCUTANEO Medical 00 USLY 8 Center WEEKS AFTER INNDUCTION DOSE THEN EVERY 8 WEEKS THEREAFTER STELARA 90 2017-05 Yes INJECT [facility] t mg/mL Syrg 2-12 [facility]MG [facility] 00:00: SUBCUTANEO Medical 00 USLY 8 Center WEEKS AFTER INNDUCTION DOSE THEN EVERY 8 WEEKS THEREAFTER ustekinumab 2017-05 Yes INJECT Meth deepti (STELARA) 2-[address] 90 mg/mL 00:00: SUBCUTANEO [facility] injection 00 USLY EVERY l 28 DAYS ustekinumab 2017-05 Yes INJECT Meth deepti (STELARA) 2-[address] 90 mg/mL 00:00: SUBCUTANEO Hos [facility] injection 00 USLY EVERY l 28 DAYS ustekinumab 2017-05 Yes INJECT Meth deepti (STELARA) 2-[address] 90 mg/mL 00:00: SUBCUTANEO Hos [facility] injection 00 USLY EVERY l 28 DAYS ustekinumab 2017-05 Yes INJECT Meth deepti (STELARA) 2-[address] 90 mg/mL 00:00: SUBCUTANEO Hos augustin injection 00 USLY EVERY l 28 DAYS Ondansetron 2016-05 No 4 mg, Memor ia 0-21 Route: l 23:36: IVP, Drug Markus 00 form: INJ, ONCE, Dosing Weight 52.955, kg, Priority: STAT, Start date: 02/18/17 18:36:00 CDT, Stop date: 02/18/17 18:36:00 CDT Hydromorpho 2016-05 No 1 mg, Memor ia ne 0-21 Route: l 23:01: IVP, Drug Markus 00 form: INJ, ONCE, Dosing Weight 52.955, [...] Chloride 0-21 2,000 l 0.9% 20:51: ml/hr, [place] (Bolus) IV 00 Infuse Over: 30 minutes, [...] cap, PO, l Enteric 14:34: Q12H, # [place] Coated 00 180 cap, 0 Capsule Refill(s) Alprazolam Yes 2 mg = 1 Mem oria 2 MG Oral 6-14 tab, PO, l Tablet 14:34: QID, PRN [place] [Xanax] 00 Anxiety, X 5 day, # 20 tab, 0 Refill(s) Flagyl No Notes: Memoria 6-13 (Same as: l 16:00: Flagyl) Take with food/ avoid alcohol mesalamine No [...] patch -13 Remove old l 10:00: patch [place] 00 before applicatio n of new patch. [...] Xanax) Saline No Notes: Memoria Flush 0.9% -12 (Same as: l 07:06: BD Markus 00 Posiflush) Acetaminoph No Notes: Isreal adiel en 325 MG / 6-12 (Same as: l Hydrocodone 07:06: [place] Prachi nn Bitartrate 00 325/5) Do 5 MG Oral not exceed Tablet 4gm/day of acetaminop hen. Morphine No Notes: Memoria 6-12 (Same l 07:06: as:MORPhin [place] 00 e Sulfate) Ondansetron No Notes: Isreal adiel 6-12 (Same as: l 07:06: Zofran) Markus 00 MEDICATION WASTE Product Size: 4 mg Product Wasted: ___ mg Sodium No 1,000 mL, Memori a Chloride -12 Rate: 125 l 0.154 07:06: ml/hr, [place] MEQ/ML 00 Infuse Injectable over: 8 Solution [...] Chloride 0-12 1000 l 0.154 18:36: ml/hr, [place] MEQ/ML 00 Infuse Injectable Over: 1 Solution [...] days Memor ia 4-15 l 15:46: MEDICATION [place] 00 WASTE Product Size: 30 mg Product Wasted: ___ mg Sodium No 1,000 mL, Memori a Chloride 4-15 1,000 l 0.154 14:36: ml/hr, [place] MEQ/ML 00 Infuse Injectable Over: 1 Solution [...] 08/13/14 8:12:00, Stop date: 08/13/14 8:12:00 Sodium 2015-0 No 1,000 mL, Memori a Chloride 4-15 1,000 l 0.154 12:04: ml/hr, Markus MEQ/ML 00 Infuse Injectable Over: 1 Solution hr, Route: IV, 1,000, Drug form: INJ, ONCE, Priority: STAT, Dosing Weight 47.727 kg, Start date: 08/13/14 7:04:00, Duration: 1 doses or times, Stop date: 08/13/14 7:04:00 Saline No Notes: [facility] Flush 0.9% 08-13 Same as: l 12:03: BD [place] 00 Posiflush Sterile tramadol 2013-05 Yes 50 mg = 1 Isreal adiel hydrochlori 09 tab, PO, l de 50 MG 18:14: Q4H, Pain, [place] Oral Tablet 00 # 30 tab, 0 Refill(s) Nitrofurant 2013-05 Yes 100 mg = 1 Memoria oin 100 MG 05-09 cap, PO, l Oral 16:48: BID, # 14 [place] Capsule 00 cap, 0 [Macrobid] Refill(s) Ondansetron [...] (Same as: l mEq/100 mL 14:10: KCL) [place] intravenous 00 Infuse no solution faster than 10 mEq/hr if given peripheral ly. Ondansetron 2013-05 No 4 mg, Memor ia 05-09 Route: l 12:33: IVP, ONCE, Markus 00 Dosing Weight 50.909, kg, Priority: STAT, Start date: 03/09/14 6:33:00, Stop date: 03/09/14 6:33:00 Hydromorpho 2013-05 No 0.5 mg, Mem oria ne 05-09 Route: l 12:33: IVP, ONCE, [place] 00 Dosing Weight 50.909, kg, Priority: STAT, Start date: 03/09/14 6:33:00, Stop date: 03/09/14 6:33:00 Saline 2013-05 No Notes: Memoria Flush 0.9% 05-09 (Same as: l 12:33: BD [place] Posiflush) Sodium 2013-05 No 1,000 mL, Memori a Chloride 05-09 Infuse l 0.154 12:33: Over: 1 Markus MEQ/ML 00 hr, Route: Injectable IV, ONCE, Solution Priority: STAT, Dosing Weight 50.909 kg, Start date: 03/09/14 6:33:00, Duration: 1 doses or times, Stop date: 03/09/14 6:33:00 Nitrofurant Yes 100 mg = 1 Memoria oin 100 MG 01-14 cap, PO, l Oral 21:37: BID, # 14 Markus Capsule cap, 0 [Macrobid] Refill(s) Acetaminoph No 1 tab, Isreal adiel en 325 MG / 01-14 Route: PO, l Hydrocodone 20:51: Drug Form: Markus Bitartrate 00 TAB, 5 MG Oral Dosing Tablet Weight [[place] 50.909, 5/325] kg, ONCE, STAT, Start date: 01/14/14 15:51:00, Stop date: 01/14/14 15:51:00 Potassium No Notes: Memori a Chloride 20 01-14 (Same as: l MEQ 16:33: K-Dur 20) [place] Extended 00 "Do Not Release Crush" Tablet With food and full glass of water Macrobid No Notes: Not Mem oria 01-14 Recommende l 16:20: d for [place] 00 patients with CrCl< 50 ml/min With food (Same as:Macroda ntin) Acetaminoph No 2 tab, Isreal adiel en 325 MG / 9-16 Route: PO, l Hydrocodone 13:20: Dosing Herm chelsey Bitartrate 00 Weight 5 MG Oral 50.909, Tablet kg, ONCE, [[place] Start 5325] date: 01/14/14 8:20:00, Stop date: 01/14/14 8:20:00 Acetaminoph Yes 1 tab, PO, Memoria en 325 MG / 16 Q4-6H, l Hydrocodone 05:59: Pain, # 12 [place] Bitartrate 00 tab, 0 5 MG Oral Refill(s) Tablet [[place] 5/325] Hydromorpho No Notes: Isreal adiel ne [...] Chloride 9-16 1000 l 0.154 03:12: ml/hr, [place] MEQ/ML 00 Infuse Injectable Over: 1 Solution hr, Route: IV, 1,000, Drug form: INJ, ONCE, Priority: STAT, Dosing Weight 54.545 kg, Start date: 01/13/14 22:12:00, Duration: 1 doses or times, Stop date: 01/13/14 22:12:00 Saline No Notes: Memoria Flush 0.9% 16 (Same as: l 03:12: BD Posiflush) Hydromorpho No Notes: Isreal adiel ne 9-16 (Same as: l 03:12: Dilaudid) Ondansetron Yes Notes: Isreal adiel 7-25 (Same as: l 16:08: Zofran) Metoclopram Yes Notes: Isreal adiel sma 7-25 (Same as: l 16:08: Reglan) Sodium [...] NE SODIUM 0-04 l 100 MCG 00:00: S ALPRAZOLAM 2012-05 Yes 1 po 4 Memor [...] emoria 500 MG 0-04 q hs l [id number] 00:00: DILAUDID/CL 2012-05 Yes per pain Me moria ONIDINE/BUR 0-04 pump l - 4.0MG/ML, 00:00: Sony n 444.0 00 UG/ML, 5.0 UG/ML ACYCLOVIR 2012-05 Yes 1 3x daily Me moria TAB 400MG 0-04 for herpes l 00:00: flare. LEVOTHYROXI 2012-05 Yes 1 PO Daily Memoria NE SODIUM 0-04 l 100 MCG 00:00: TAB ALPRAZOLAM 2012-05 Yes 1 po 4 Memor ia 2 MG TABS 0-04 times l 00:00: daily ADDERALL 30 2012-05 Yes 1 po q AM, Memoria MG TABS 0-04 1 po q l 00:00: noon, 05/02 po at 3:00pm DEPAKOTE ER 2012-05 Yes 2 tabs po M emoria 500 MG 0-04 q hs l [id number] 00:00: ACYCLOVIR 2012-05 Yes 1 3x daily Me moria TAB 400MG 0-04 for herpes l 00:00: flare. ondansetron ondansetron No ondansetro [place] 4 mg 4 mg n 4 mg da disintegrat disintegrat disintegra Medical ing tablet ing tablet ting Francesco up DISSOLVE 1 DISSOLVE 1 tablet TABLET ON TABLET ON DISSOLVE 1 THE TONGUE THE TONGUE TABLET ON EVERY 4 EVERY 4 THE TONGUE HOURS HOURS EVERY 4 NEEDED NEEDED HOURS NEEDED pantoprazol pantoprazol No pantoprazo [place] [...] s syringe s syringe us syringe Group terconazole terconazole No terconazol [place] 0.4 % 0.4 % e 0.4 % da vaginal vaginal vaginal Medica l cream cream cream Group INSERT 1 INSERT 1 INSERT 1 APPLICATORF APPLICATORF APPLICATOR UL UL FUL VAGINALLY VAGINALLY VAGINALLY AT BEDTIME AT BEDTIME AT BEDTIME FOR 7 FOR 7 FOR 7 NIGHTS NIGHTS NIGHTS varenicline varenicline No vareniclin [place] 1 mg tablet 1 mg tablet e 1 mg da TAKE 1 TAKE 1 tablet Medical TABLET BY TABLET BY TAKE 1 Francesco up MOUTH TWICE MOUTH TWICE TABLET BY DAILY DAILY MOUTH TWICE DAILY Adderall XR Adderall XR No 1capsul Q1D Adderall [place] 10 mg 10 mg e(s) XR 10 mg da capsule,ext capsule,ext capsule,ex Medical ended ended tended Group release release release Take 1 Take 1 Take 1 capsule capsule capsule every day every day every day by oral by oral by oral route. route. route. alfuzosin alfuzosin No alfuzosin [place] ER 10 [...] DAILY TIMES DAILY MOUTH FOUR TIMES DAILY cholestyram cholestyram No cholestyra [place] ine (with [...] BY MOUTH DAILY Cholestyram Cholestyram No Cholestyra [place] ine Light 4 ine Light 4 mine Light da gram powder gram powder 4 gram Medical for susp in for susp in powder for Group a packet a packet susp in a packet clonazepam clonazepam No clonazepam [place] 1 mg [...] AREA EVERY DIRECTED DIRECTED 8 HOURS DIRECTED [place] 100 [place] 100 No Elmiron [place] mg capsule mg capsule 100 mg d a capsule Medical Group escitalopra escitalopra No escitalopr [place] m [...] NOSTRIL EVERY DAY gabapentin gabapentin No gabapentin [place] [...] DAILY MOUTH DAILY TABLET BY MOUTH DAILY alfuzosin alfuzosin No alfuzosin [place] ER 10 mg ER 10 mg ER 10 mg da tablet,exte tablet,exte tablet,ext [facility] nded nded ended al release 24 release 24 release 24 Health hr TAKE 1 hr TAKE 1 hr TAKE 1 [facility] TABLET BY TABLET BY TABLET BY h MOUTH EVERY MOUTH EVERY MOUTH Program DAY DAY EVERY DAY IMMEDIATELY IMMEDIATELY IMMEDIATEL [...] MOUTH FOUR [facility] TIMES h DAILY Program Chantix Chantix No Chantix [place] Starting Starting Starting Box Box [facility] 0.5 mg 0.5 mg 0.5 mg al (11)-1 mg (11)-1 mg (11)-1 mg Health (42) (42) (42) [facility] tablets in tablets in tablets in h dose pack dose pack dose pack Program cholestyram cholestyram No cholestyra [place] ine [...] BY MOUTH DAILY Cholestyram Cholestyram No Cholestyra [place] ine Light 4 ine Light 4 mine Light da gram powder gram powder 4 gram [facility] for susp in for susp in powder for al a packet a packet susp in a He alth packet Outreac h Program clonazepam clonazepam No clonazepam [place] 1 mg tablet 1 mg tablet 1 mg d a TAKE 1 TAKE 1 tablet [facility] TABLET BY TABLET BY TAKE 1 al MOUTH THREE MOUTH THREE TABLET BY Health TIMES DAILY TIMES DAILY MOUTH [facility] THREE h TIMES Program DAILY cyclobenzap cyclobenzap No cyclobenza [place] rine 10 mg rine 10 mg ariana 10 da tablet tablet mg tablet [facility] p al Health Outre[facility] h Program dextroamphe dextroamphe No dextroamph [place] tamine-amph tamine-amph etamine-am da etamine ER etamine ER phetamine [facility] 10 mg 24hr 10 mg 24hr ER 10 mg al capsule,ext capsule,ext 24hr H ealth end release end release capsule,ex [facility] TAKE 1 TAKE 1 tend h CAPSULE BY CAPSULE BY release Program MOUTH EVERY MOUTH EVERY TAKE 1 DAY DAY CAPSULE BY MOUTH EVERY DAY diclofenac diclofenac No diclofenac [place] 1 % topical 1 % topical 1 % d a gel APPLY gel APPLY topical Ep iscop TOPICALLY TOPICALLY gel APPLY al TO THE TO THE TOPICALLY Health AFFECTED AFFECTED TO THE Outre ac AREA EVERY AREA EVERY AFFECTED h 8 HOURS 8 HOURS AREA EVERY Program DIRECTED DIRECTED 8 HOURS DIRECTED diethylprop diethylprop No diethylpro [place] ion ER 75 ion ER 75 pion ER 75 da mg mg mg [facility] tablet,exte tablet,exte tablet,ext al nded nded ended Health release release release Outrea c TAKE 1 TAKE 1 TAKE 1 h TABLET BY TABLET BY TABLET BY Program MOUTH EVERY MOUTH EVERY MOUTH DAY DAY EVERY DAY [place] 100 [place] 100 No [place]iron [place] mg capsule mg capsule 100 mg d a capsule [facility] al Health Out[facility] h Program epinephrine epinephrine No epinephrin [place] 0.3 mg/0.3 0.3 mg/0.3 e 0.3 da mL mL mg/0.3 mL [facility] injection, injection, injection, al auto-inject auto-inject auto-inj Health or or [facility] Outre[facility] h Program ertapenem 1 ertapenem 1 No ertapenem [place] gram gram 1 gram da solution solution solution Epi scop for for for al injection injection injection Health Outreac h Program escitalopra escitalopra No escitalopr [place] m 10 mg m 10 mg am 10 mg da tablet TAKE tablet TAKE tablet [facility] 1 TABLET BY 1 TABLET BY TAKE 1 al MOUTH EVERY MOUTH EVERY TABLET BY Health MORNING MORNING MOUTH [facility] EVERY h MORNING [...] MOUTH EVERY MOUTH EVERY TABLET BY Health WEEK WEEK MOUTH [facility] EVERY WEEK h [...] MOUTH FOUR [facility] TIMES h DAILY Program ketorolac ketorolac No ketorolac [place] 60 mg/2 mL 60 mg/2 mL 60 mg/2 mL da intramuscul intramuscul intramuscu [facility] ar solution ar solution lar a l INJECT 2ML INJECT 2ML solution Health IN THE IN THE INJECT 2ML Outre ac MUSCLE MUSCLE IN THE h MUSCLE Program montelukast montelukast No montelukas [place] 10 mg 10 mg t 10 mg da tablet TAKE tablet TAKE tablet [facility] 1 TABLET BY 1 TABLET BY TAKE 1 al MOUTH DAILY MOUTH DAILY TABLET BY Health MOUTH Outreac DAILY h Program ondansetron ondansetron No ondansetro [place] [...] h DAILY DAILY MOUTH Program TWICE DAILY phenazopyri phenazopyri No phenazopyr [place] dine 200 mg dine 200 mg idine 200 da tablet TAKE tablet TAKE mg tablet [facility] 1 TABLET BY 1 TABLET BY TAKE 1 al MOUTH THREE MOUTH THREE TABLET BY Health TIMES DAILY TIMES DAILY MOUTH [facility] NEEDED NEEDED THREE h FOR PAIN FOR PAIN TIMES Progra m DAILY NEEDED FOR PAIN Stelara 90 St[place]ara 90 No Stelara 90 [place] mg/mL mg/mL mg/mL da subcutaneou subcutaneou subcutaneo [facility] s syringe s syringe us syringe al Health Outreac h Program terconazole terconazole No terconazol [place] 0.4 % 0.4 % e 0.4 % da vaginal vaginal vaginal [facility] p cream cream cream al INSERT 1 INSERT 1 INSERT 1 Hea lth APPLICATORF APPLICATORF APPLICATOR [facility] UL UL FUL h VAGINALLY VAGINALLY VAGINALLY Program AT BEDTIME AT BEDTIME AT BEDTIME FOR 7 FOR 7 FOR 7 NIGHTS NIGHTS NIGHTS varenicline varenicline No vareniclin [place] 1 mg tablet 1 mg tablet e 1 mg da TAKE 1 TAKE 1 tablet [facility] TABLET BY TABLET BY TAKE 1 al MOUTH TWICE MOUTH TWICE TABLET BY Health DAILY DAILY MOUTH [facility] TWICE h DAILY Program Immunizations Ordered Filled Immunization Date Status Comments [facility] e Immunization Name Name Influenza vaccine, Influenza vaccine, 2021-04-29 Completed [place] quadrivalent, quadrivalent, 11:22:00 Medical Group adjuvanted adjuvanted Moderna SARS-CoV-2 2020-12-28 Completed [facility] Vaccination 00:00:00 of Medicine Moderna SARS-CoV-2 2020-12-28 Completed [facility] Vaccination 00:00:00 of Medicine Moderna SARS-CoV-2 2020-12-28 Completed [facility] Vaccination 00:00:00 of Medicine COVID-19, mRNA, COVID-19, mRNA, 2020-12-25 Completed Mamadou haas LNP-S, PF, 100 LNP-S, PF, 100 00:00:00 Medica l Group mcg/0.5 mL dose mcg/0.5 mL dose (Moderna) (Moderna) influenza, influenza, 2020-02-12 Completed [place] injectable, injectable, 00:00:00 Medical Grou p quadrivalent quadrivalent influenza, influenza, 2019-05-08 Completed [place] injectable, injectable, 14:33:00 Medical Grou p quadrivalent, quadrivalent, preservative free preservative free pneumococcal 2016-10-10 Completed [facility] 23-valent vaccine 22:14:00 Markus Hx influenza 2013-02-01 Completed [facility] vaccine-unspecified 18:41:05 Prachi nn <sup>1</sup> influenza 2013-02-01 Completed [facility] immunization (Flu 18:41:05 Markus Vax) has been administered influenza virus 2013-02-01 Completed [facility] vaccine, 05:00:00 Markus inactivated<sup>2</ sup> zoster recombinant zoster recombinant Unknown Completed [place] [facility] Vital Signs Vital Name Observation Time Observation Value Comments Source HEIGHT 2019-12-13 00:00:00 157.5 cm WEIGHT 2019-12-13 00:00:00 65.318 kg BP Diastolic 2021-10-04 00:00:00 79 [facility]Hg[facility] Height 2021-10-04 00:00:00 62 [in_i] [place] [facility] BMI (Body Mass 2021-10-04 00:00:00 28.5 kg/m2 [facility] alliance director Index) [facility] BP Systolic 2021-10-04 00:00:00 113 mm[Hg] [place] [facility] Body Weight 2021-10-04 00:00:00 155.8 [lb_av] [place] [facility] BP Diastolic 2021-09-24 00:00:00 63 mm[facility]Hg[facility] Height 2021-09-24 00:00:00 59.9 [in_i] [place] [facility] BMI (Body Mass 2021-09-24 00:00:00 30.4 kg/m2 [facility] Medical Index) Group BP Systolic 2021-09-24 00:00:00 88 mm[Hg] [place] [facility] Body Weight 2021-09-24 00:00:00 2480 [oz_av] [place] [facility] BP Diastolic 2021-07-24 00:00:00 71 mm[Hg] [place] [facility] Height 2021-07-24 00:00:00 62 [in_i] [place] [facility] BMI (Body Mass 2021-07-24 00:00:00 28.3 kg/m2 [facility] Medical Index) Group BP Systolic 2021-07-24 00:00:00 100 mm[Hg] [facility] [facility] Body Weight 2021-07-24 00:00:00 2480 [oz_av] [place] [facility] BP Diastolic 2021-07-12 00:00:00 89 mm[Hg] [place] [facility] Height 2021-07-12 00:00:00 62 [in_i] [place] [facility] BMI (Body Mass 2021-07-12 00:00:00 30.3 kg/m2 [facility] Medical Index) Group BP Systolic 2021-07-12 00:00:00 125 mm[Hg] [place] [facility] Body Weight 2021-07-12 00:00:00 2652.8 [oz_av] [facility] HEIGHT 2021-07-02 11:00:00 158.8 cm WEIGHT 2021-07-02 11:00:00 72.349 kg HEIGHT 2021-07-01 10:40:00 158.8 cm WEIGHT 2021-07-01 10:40:00 72.576 kg HEIGHT 2021-07-02 11:00:00 158.8 cm WEIGHT 2021-07-02 11:00:00 72.349 kg HEIGHT 2021-07-01 10:40:00 158.8 cm WEIGHT 2021-07-01 10:40:00 72.576 kg BP Diastolic 2021-06-28 00:00:00 93 mm[Hg] [place] [facility] Height 2021-06-28 00:00:00 62 [in_i] [place] [facility] BMI (Body Mass 2021-06-28 00:00:00 30.4 kg/m2 [facility] alliance director Index) [facility] BP Systolic 2021-06-28 00:00:00 126 mm[Hg] [place] [facility] Body Weight 2021-06-28 00:00:00 166 [lb_av] [place] [facility] Height 2021-06-24 00:00:00 62 [in_i] [place] [facility] BMI (Body Mass 2021-06-24 00:00:00 28.9 kg/m2 [facility] alliance director Medical Index) Group Body Weight 2021-06-24 00:00:00 2528 [oz_av] [place] [facility] HEIGHT 2021-05-03 09:33:00 157.5 cm WEIGHT 2021-05-03 09:33:00 67.132 kg HEIGHT 2021-05-03 09:33:00 157.5 cm WEIGHT 2021-05-03 09:33:00 67.132 kg Height 2021-04-28 00:00:00 62 [in_i] [facility] BMI (Body Mass 2021-04-28 00:00:00 27.8 kg/m2 [facility]) [facility] Body Weight 2021-04-28 00:00:00 2432 [oz_av] [facility] BP Diastolic 2021-04-22 00:00:00 74 mm[Hg] [facility] Height 2021-04-22 00:00:00 62 [in_i] [facility] BMI (Body Mass 2021-04-22 00:00:00 27.9 kg/m2 [facility] BP Systolic 2021-04-22 00:00:00 99 mm[Hg] [facility] Body Weight 2021-04-22 00:00:00 2440 [oz_av] [facility] BP Diastolic 2021-03-29 00:00:00 83 mm[Hg] [facility] Height 2021-03-29 00:00:00 62 [in_i] [facility] BMI (Body Mass 2021-03-29 00:00:00 29.3 kg/m2 [facility] Index) [facility] BP Systolic 2021-03-29 00:00:00 115 mm[Hg] [facility] Body Weight 2021-03-29 00:00:00 160 [lb_av] [facility] Systolic blood 2021-03-12 15:36:00 124 mm[Hg] [facility] pressure Medicine Diastolic blood 2021-03-12 15:36:00 80 mm[Hg] [facility] Medicine Heart rate 2021-03-12 15:36:00 94 /min [facility] Respiratory rate 2021-03-12 15:36:00 18 /min [facility] Body height 2021-03-12 15:36:00 157.5 cm [facility] Body weight 2021-03-12 15:36:00 75.479 kg [facility] BMI 2021-03-12 15:36:00 30.43 kg/m2 [facility] Oxygen saturation in 2021-03-12 15:36:00 90 /min [facility] Arterial blood by [facility] Pulse oximetry BP Diastolic 2021-03-02 00:00:00 76 mm[Hg] [facility] Height 2021-03-02 00:00:00 62 [in_i] [facility] BMI (Body Mass 2021-03-02 00:00:00 28.9 kg/m2 [facility] Index) [facility] BP Systolic 2021-03-02 00:00:00 118 mm[Hg] [facility] Body Weight 2021-03-02 00:00:00 158 [lb_av] [facility] BP Diastolic 2021-02-19 00:00:00 78 mm[Hg] [facility] Height 2021-02-19 00:00:00 62 [in_i] [facility] BMI (Body Mass 2021-02-19 00:00:00 29.1 kg/m2 [facility] BP Systolic 2021-02-19 00:00:00 115 mm[Hg] [facility] Body Weight 2021-02-19 00:00:00 2547.2 [oz_av] [facility] BP Diastolic 2021-01-25 00:00:00 96 mm[Hg] [facility] Height 2021-01-25 00:00:00 62 [in_i] [facility] BMI (Body Mass 2021-01-25 00:00:00 29.3 kg/m2 [facility] BP Systolic 2021-01-25 00:00:00 129 mm[Hg] [facility] Body Weight 2021-01-25 00:00:00 2561.6 [oz_av] [facility] Systolic blood 2021-01-19 19:17:00 102 mm[Hg] [facility] pressure Medicine Diastolic blood 2021-01-19 19:17:00 71 mm[Hg] [facility] pressure Medicine Heart rate 2021-01-19 19:17:00 84 /min [facility] Body temperature 2021-01-19 19:17:00 36.28 Marguerite [facility] Body height 2021-01-19 19:17:00 157.5 cm [facility] Body weight 2021-01-19 19:17:00 70.308 kg [facility] BMI 2021-01-19 19:17:00 28.35 kg/m2 [facility] Oxygen saturation in 2021-01-19 19:17:00 85 /min [facility] Arterial blood by [facility] Pulse oximetry BP Diastolic 2020-12-28 00:00:00 93 mm[Hg] [facility] Height 2020-12-28 00:00:00 62 [in_i] [facility] BMI (Body Mass 2020-12-28 00:00:00 29.7 kg/m2 [facility] BP Systolic 2020-12-28 00:00:00 133 mm[Hg] [facility] Body Weight 2020-12-28 00:00:00 162.2 [lb_av] [facility] BP Diastolic 2020-12-18 00:00:00 71 mm[Hg] [facility] Height 2020-12-18 00:00:00 62 [in_i] [facility] BMI (Body Mass 2020-12-18 00:00:00 29.7 kg/m2 [facility] BP Systolic 2020-12-18 00:00:00 104 mm[Hg] [facility] Body Weight 2020-12-18 00:00:00 2598.4 [oz_av] [facility] BP Diastolic 2020-12-08 00:00:00 68 mm[Hg] [facility] Height 2020-12-08 00:00:00 62 [in_i] [facility] BMI (Body Mass 2020-12-08 00:00:00 30.5 kg/m2 [facility] BP Systolic 2020-12-08 00:00:00 95 mm[Hg] [facility] Body Weight 2020-12-08 00:00:00 2668.8 [oz_av] [facility] BP Diastolic 2020-11-30 00:00:00 76 mm[Hg] [facility] Height 2020-11-30 00:00:00 62 [in_i] [facility] BMI (Body Mass 2020-11-30 00:00:00 30.2 kg/m2 [facility] BP Systolic 2020-11-30 00:00:00 108 mm[Hg] [facility] Body Weight 2020-11-30 00:00:00 2641.6 [oz_av] [facility] BP Diastolic 2020-11-17 00:00:00 64 mm[Hg] [facility] Height 2020-11-17 00:00:00 62 [in_i] [facility] BMI (Body Mass 2020-11-17 00:00:00 30.2 [facility] BP Systolic 2020-11-17 00:00:00 90 mm[Hg] [facility] Body Weight 2020-11-17 00:00:00 2640 [oz_av] [facility] BP Diastolic 2020-10-26 00:00:00 96 mm[Hg] [facility] Height 2020-10-26 00:00:00 62 [in_i] [facility] BMI (Body Mass 2020-10-26 00:00:00 31.2 kg/m2 [facility] Medical Index) Group BP Systolic 2020-10-26 00:00:00 140 mm[Hg] [facility] Body Weight 2020-10-26 00:00:00 2729.6 [oz_av] [facility] BP Diastolic 2020-10-12 00:00:00 91 mm[Hg] [facility] Height 2020-10-12 00:00:00 62 [in_i] [facility] BMI (Body Mass 2020-10-12 00:00:00 30.4 kg/m2 [facility] BP Systolic 2020-10-12 00:00:00 142 mm[Hg] [facility] Body Weight 2020-10-12 00:00:00 2657.6 [oz_av] [facility] BMI (Body Mass 2020-08-12 00:00:00 31.6 kg[facility]m2 [facility] Body Weight 2020-08-12 00:00:00 2761.6 [oz_av] [facility] Height 2020-08-12 00:00:00 62 [in_i] [facility] BP Diastolic 2020-07-31 00:00:00 82 mm[Hg] [facility] Height 2020-07-31 00:00:00 62 [in_i] [facility] BMI (Body Mass 2020-07-31 00:00:00 31.6 kg/m2 [facility] BP Systolic 2020-07-31 00:00:00 116 mm[Hg] [facility] Body Weight 2020-07-31 00:00:00 172.6 [lb_av] [facility] BP Diastolic 2020-06-23 00:00:00 97 mm[Hg] [facility] Height 2020-06-23 00:00:00 62 [in_i] [facility] BMI (Body Mass 2020-06-23 00:00:00 28.7 [facility] BP Systolic 2020-06-23 00:00:00 142 mm[Hg] [facility] Body Weight 2020-06-23 00:00:00 2512 [oz_av] [facility] BP Diastolic 2020-05-27 00:00:00 71 mm[Hg] [facility] Height 2020-05-27 00:00:00 62 [in_i] [facility] BMI (Body Mass 2020-05-27 00:00:00 27.1 kg/m2 [facility] BP Systolic 2020-05-27 00:00:00 105 mm[Hg] [facility] Body Weight 2020-05-27 00:00:00 147.9 [lb_av] [facility] BP Diastolic 2020-05-04 00:00:00 76 mm[Hg] [facility] Height 2020-05-04 00:00:00 62 [in_i] [facility] BMI (Body Mass 2020-05-04 00:00:00 28.4 [facility]m2 [facility] BP Systolic 2020-05-04 00:00:00 116 mm[Hg] [facility] Body Weight 2020-05-04 00:00:00 2481.6 [oz_av] [facility] BP Diastolic 2020-04-02 00:00:00 70 mm[Hg] [facility] Height 2020-04-02 00:00:00 62 [in_i] [facility] BMI (Body Mass 2020-04-02 00:00:00 27.4 kg/m2 [facility] BP Systolic 2020-04-02 00:00:00 101 mm[Hg] [facility] Body Weight 2020-04-02 00:00:00 149.7 [lb_av] [facility] BP Diastolic 2020-03-18 00:00:00 75 mm[Hg] [facility] Height 2020-03-18 00:00:00 62 [in_i] [facility] BMI (Body Mass 2020-03-18 00:00:00 27.3 kg/m2 [facility] BP Systolic 2020-03-18 00:00:00 124 mm[Hg] [facility] Body Weight 2020-03-18 00:00:00 2384 [oz_av] [facility] BP Diastolic 2020-01-24 00:00:00 83 mm[Hg] [facility] Height 2020-01-24 00:00:00 62 [in_i] [facility] BMI (Body Mass 2020-01-24 00:00:00 27.3 kg/m2 [facility] BP Systolic 2020-01-24 00:00:00 118 mm[Hg] [facility] Body Weight 2020-01-24 00:00:00 2384 [oz_av] [facility] BP Diastolic 2020-01-17 00:00:00 71 mm[Hg] [facility] Height 2020-01-17 00:00:00 62 [in_i] [facility] BMI (Body Mass 2020-01-17 00:00:00 27.1 kg/m2 [facility] BP Systolic 2020-01-17 00:00:00 107 mm[Hg] [facility] Body Weight 2020-01-17 00:00:00 148.2 [lb_av] [facility] HEIGHT 2019-12-13 00:00:00 157.5 cm WEIGHT 2019-12-13 00:00:00 65.318 kg Body height 2019-12-17 18:52:00 157.5 cm [facility] Body weight 2019-12-17 18:52:00 68.04 kg [facility] BMI 2019-12-17 18:52:00 27.44 kg/m2 [facility] Body height 2019-12-17 18:52:00 157.5 cm [facility] Body weight 2019-12-17 18:52:00 68.04 kg [facility] BMI 2019-12-17 18:52:00 27.44 kg/m2 [facility] Body height 2019-12-17 18:52:00 157.5 cm [facility] Body weight 2019-12-17 18:52:00 68.04 kg [facility] BMI 2019-12-17 18:52:00 27.44 kg/m2 [facility] BP Diastolic 2019-12-03 00:00:00 73 mm[Hg] [facility] Height 2019-12-03 00:00:00 62 [in_i] [facility] BMI (Body Mass 2019-12-03 00:00:00 27.1 kg/m2 [facility] BP Systolic 2019-12-03 00:00:00 105 mm[Hg] [facility] Body Weight 2019-12-03 00:00:00 148 [lb_av] [facility] BP Diastolic 2019-11-07 00:00:00 73 mm[Hg] [facility] Height 2019-11-07 00:00:00 62 [in_i] [facility] BMI (Body Mass 2019-11-07 00:00:00 27.1 kg/m2 [facility] BP Systolic 2019-11-07 00:00:00 105 mm[Hg] [facility] Body Weight 2019-11-07 00:00:00 2369 [oz_av] [facility] BP Diastolic 2019-10-15 00:00:00 94 mm[Hg] [facility] Height 2019-10-15 00:00:00 62 [in_i] [facility] BMI (Body Mass 2019-10-15 00:00:00 27.8 kg/m2 [facility] BP Systolic 2019-10-15 00:00:00 135 mm[Hg] [facility] Body Weight 2019-10-15 00:00:00 2432 [oz_av] [facility] BP Diastolic 2019-07-12 00:00:00 77 mm[Hg] [facility] Height 2019-07-12 00:00:00 62 [in_i] [facility] BMI (Body Mass 2019-07-12 00:00:00 27.7 kg/m2 [facility] BP Systolic 2019-07-12 00:00:00 101 mm[Hg] [facility] Body Weight 2019-07-12 00:00:00 2425 [oz_av] [facility] Systolic blood 2019-07-11 16:12:00 111 mm[Hg] [facility] pressure Medicine Diastolic blood 2019-07-11 16:12:00 77 mm[Hg] [facility] Medicine Heart rate 2019-07-11 16:12:00 99 /min [facility] Body temperature 2019-07-11 16:12:00 36.72 Marguerite [facility] Body height 2019-07-11 16:12:00 157.5 cm [facility] Body weight 2019-07-11 16:12:00 65.772 kg [facility] BMI 2019-07-11 16:12:00 26.52 kg/m2 [facility] Systolic blood 2019-07-11 16:12:00 111 mm[Hg] [facility] pressure Medicine Diastolic blood 2019-07-11 16:12:00 77 mm[Hg] [facility] pressure Medicine Heart rate 2019-07-11 16:12:00 99 /min [facility] Body temperature 2019-07-11 16:12:00 36.72 Marguerite [facility] Body height 2019-07-11 16:12:00 157.5 cm [facility] Body weight 2019-07-11 16:12:00 65.772 kg [facility] BMI 2019-07-11 16:12:00 26.52 kg/m2 [facility] Systolic blood 2019-07-11 16:12:00 111 mm[Hg] [facility] pressure Medicine Diastolic blood 2019-07-11 16:12:00 77 mm[Hg] [facility] Medicine Heart rate 2019-07-11 16:12:00 99 /min [facility] Body temperature 2019-07-11 16:12:00 36.72 Marguerite [facility] Body height 2019-07-11 16:12:00 157.5 cm [facility] Body weight 2019-07-11 16:12:00 65.772 kg [facility] BMI 2019-07-11 16:12:00 26.52 kg/m2 [facility] Systolic blood 2019-06-19 15:35:00 138 mm[Hg] [facility] pressure Medicine Diastolic blood 2019-06-19 15:35:00 86 mm[Hg] [facility] Medicine Heart rate 2019-06-19 15:35:00 78 /min [facility] Respiratory rate 2019-06-19 15:35:00 16 /min [facility] Body height 2019-06-19 15:35:00 157.5 cm [facility] Body weight 2019-06-19 15:35:00 66.588 kg [facility] BMI 2019-06-19 15:35:00 26.85 kg/m2 [facility] Systolic blood 2019-06-19 16:57:00 127 mm[Hg] [facility] pressure Medicine Diastolic blood 2019-06-19 16:57:00 70 mm[Hg] [facility] pressure Medicine Heart rate 2019-06-19 16:57:00 95 /min [facility] Body temperature 2019-06-19 16:57:00 36.56 Marguerite [facility] Respiratory rate 2019-06-19 16:57:00 18 /min [facility] Body height 2019-06-19 16:57:00 157.5 cm [facility] Body weight 2019-06-19 16:57:00 66.679 kg [facility] BMI 2019-06-19 16:57:00 26.89 kg/m2 [facility] Systolic blood 2019-06-19 15:35:00 138 mm[Hg] [facility] Medicine Diastolic blood 2019-06-19 15:35:00 86 mm[Hg] [facility] pressure Medicine Heart rate 2019-06-19 15:35:00 78 /min [facility] Respiratory rate 2019-06-19 15:35:00 16 /min [facility] Body height 2019-06-19 15:35:00 157.5 cm [facility] Body weight 2019-06-19 15:35:00 66.588 kg [facility] BMI 2019-06-19 15:35:00 26.85 kg/m2 [facility] Systolic blood 2019-06-19 15:35:00 138 mm[Hg] [facility] pressure Medicine Diastolic blood 2019-06-19 15:35:00 86 mm[Hg] [facility] Medicine Heart rate 2019-06-19 15:35:00 78 /min [facility] Respiratory rate 2019-06-19 15:35:00 16 /min [facility] Body height 2019-06-19 15:35:00 157.5 cm [facility] Body weight 2019-06-19 15:35:00 66.588 kg [facility] BMI 2019-06-19 15:35:00 26.85 kg/m2 [facility] Systolic blood 2019-06-19 16:57:00 127 mm[Hg] [facility] pressure Medicine Diastolic blood 2019-06-19 16:57:00 70 mm[Hg] [facility] Medicine Heart rate 2019-06-19 16:57:00 95 /min [facility] Body temperature 2019-06-19 16:57:00 36.56 Marguerite [facility] Respiratory rate 2019-06-19 16:57:00 18 /min [facility] Body height 2019-06-19 16:57:00 157.5 cm [facility] Body weight 2019-06-19 16:57:00 66.679 kg [facility] BMI 2019-06-19 16:57:00 26.89 kg/m2 [facility] Systolic blood 2019-06-19 16:57:00 127 mm[Hg] [facility] pressure Medicine Diastolic blood 2019-06-19 16:57:00 70 mm[Hg] [facility] pressure Medicine Heart rate 2019-06-19 16:57:00 95 /min [facility] Body temperature 2019-06-19 16:57:00 36.56 Marguerite [facility] Respiratory rate 2019-06-19 16:57:00 18 /min [facility] Body height 2019-06-19 16:57:00 157.5 cm [facility] Body weight 2019-06-19 16:57:00 66.679 kg [facility] BMI 2019-06-19 16:57:00 26[facility]89 [facility] Body temperature 2019-06-12 14:20:00 37.11 Marguerite [facility] Respiratory rate 2019-06-12 14:20:00 16 /min [facility] Body height 2019-06-12 14:20:00 157.5 cm [facility] Body weight 2019-06-12 14:20:00 [facility]223 [facility] BMI 2019-06-12 14:20:00 27.11 [facility]2 [facility] Systolic blood 2019-06-12 14:20:00 100 mm[Hg] [facility] pressure Medicine Diastolic blood 2019-06-12 14:20:00 69 mm[Hg] [facility] Medicine Heart rate 2019-06-12 14:20:00 98 /min [facility] Body temperature 2019-06-12 14:20:00 37.11 Marguerite [facility] Respiratory rate 2019-06-12 14:20:00 16 /min [facility] Body height 2019-06-12 14:20:00 157.5 cm [facility] Body weight 2019-06-12 14:20:00 67.223 kg [facility] BMI 2019-06-12 14:20:00 27.11 kg/m2 [facility] Systolic blood 2019-06-12 14:20:00 100 mm[Hg] [facility] pressure Medicine Diastolic blood 2019-06-12 14:20:00 69 mm[Hg] [facility] Medicine Heart rate 2019-06-12 14:20:00 98 /min [facility] Body temperature 2019-06-12 14:20:00 37.11 Marguerite [facility] Respiratory rate 2019-06-12 14:20:00 16 /min [facility] Body height 2019-06-12 14:20:00 157.5 cm [facility] Body weight 2019-06-12 14:20:00 67.223 kg [facility] BMI 2019-06-12 14:20:00 27.11 [facility]2 [facility] Systolic blood 2019-06-12 14:20:00 100 mm[Hg] [facility] pressure Medicine Diastolic blood 2019-06-12 14:20:00 69 mm[Hg] [facility] Medicine Heart rate 2019-06-12 14:20:00 98 /min [facility] BP Diastolic 2019-05-08 00:00:00 81 mm[Hg] [facility] Height 2019-05-08 00:00:00 62 [in_i] [facility] BMI (Body Mass 2019-05-08 00:00:00 27.3 kg/m2 [facility]) [facility] BP Systolic 2019-05-08 00:00:00 123 mm[Hg] [facility] Body Weight 2019-05-08 00:00:00 2384 [oz_av] [facility] BP Diastolic 2019-01-29 00:00:00 64 mm[Hg] [facility] Height 2019-01-29 00:00:00 62 [in_i] [facility] BMI (Body Mass 2019-01-29 00:00:00 27.9 kg/m2 [facility] BP Systolic 2019-01-29 00:00:00 108 mm[Hg] [facility] Body Weight 2019-01-29 00:00:00 152.3 [lb_av] [facility] BP Diastolic 2019-01-25 00:00:00 71 mm[Hg] [facility] Height 2019-01-25 00:00:00 62 [in_i] [facility] BMI (Body Mass 2019-01-25 00:00:00 28.2 [facility] BP Systolic 2019-01-25 00:00:00 91 mm[Hg] [facility] Body Weight 2019-01-25 00:00:00 154.2 [lb_av] [facility] BP Diastolic 2019-01-07 00:00:00 80 mm[Hg] [facility] Height 2019-01-07 00:00:00 62 [in_i] [facility] BMI (Body Mass 2019-01-07 00:00:00 29 kg/m2 [facility]) [facility] BP Systolic 2019-01-07 00:00:00 109 mm[Hg] [facility] Body Weight 2019-01-07 00:00:00 158.6 [lb_av] [facility] BP Diastolic 2018-12-27 00:00:00 67 mm[Hg] [facility] Height 2018-12-27 00:00:00 62 [in_i] [facility] BMI (Body Mass 2018-12-27 00:00:00 27.9 kg/m2 [facility]) [facility] BP Systolic 2018-12-27 00:00:00 92 mm[Hg] [facility] Body Weight 2018-12-27 00:00:00 152.3 [lb_av] [facility] Systolic blood 2018-12-18 15:04:00 110 mm[Hg] [facility] pressure Medicine Diastolic blood 2018-12-18 15:04:00 60 mm[Hg] [facility] Medicine Heart rate 2018-12-18 15:04:00 74 /min [facility] Body temperature 2018-12-18 15:04:00 36.67 Marguerite [facility] Respiratory rate 2018-12-18 15:04:00 16 /min [facility] Body height 2018-12-18 15:04:00 157.5 cm [facility] Body weight 2018-12-18 15:04:00 70.67 kg [facility] BMI 2018-12-18 15:04:00 28.50 kg/m2 [facility] Systolic blood 2018-12-18 15:04:00 110 mm[Hg] [facility] pressure Medicine Diastolic blood 2018-12-18 15:04:00 60 mm[Hg] [facility] Medicine Heart rate 2018-12-18 15:04:00 74 /min [facility] Body temperature 2018-12-18 15:04:00 36.67 Marguerite [facility] Respiratory rate 2018-12-18 15:04:00 16 /min [facility] Body height 2018-12-18 15:04:00 157.5 cm [facility] Body weight 2018-12-18 15:04:00 70.67 kg [facility] BMI 2018-12-18 15:04:00 28[facility]50 [facility] 2018-12-18 15:04:00 110 mm[Hg] [facility] Diastolic blood 2018-12-18 15:04:00 60 mm[Hg] [facility] Heart rate 2018-12-18 15:04:00 74 /min [facility] Body temperature 2018-12-18 15:04:00 36.67 Marguerite [facility] [facility] Respiratory rate 2018-12-18 15:04:00 16 /min [facility] Body height 2018-12-18 15:04:00 157.5 cm [facility] Body weight 2018-12-18 15:04:00 70.67 kg [facility] BMI 2018-12-18 15:04:00 28.50 kg/m2 [facility] BP Diastolic 2018-12-17 00:00:00 93 mm[Hg] [facility] Height 2018-12-17 00:00:00 62 [in_i] [facility] BMI (Body Mass 2018-12-17 00:00:00 28.3 kg/m2 [facility]) Group BP Systolic 2018-12-17 00:00:00 137 mm[Hg] [facility] Body Weight 2018-12-17 00:00:00 2480 [oz_av] [facility] BP Diastolic 2018-12-07 00:00:00 73 mm[Hg] [facility] Height 2018-12-07 00:00:00 62 [in_i] [facility] BMI (Body Mass 2018-12-07 00:00:00 30 kg/m2 [facility]) Group BP Systolic 2018-12-07 00:00:00 145 mm[Hg] [facility] Body Weight 2018-12-07 00:00:00 2624 [oz_av] [facility] BP Diastolic 2018-10-17 00:00:00 90 mm[Hg] [facility] Height 2018-10-17 00:00:00 62 [in_i] [facility] BMI (Body Mass 2018-10-17 00:00:00 27.3 kg/m2 [facility] Index) Group BP Systolic 2018-10-17 00:00:00 153 mm[Hg] [facility] Body Weight 2018-10-17 00:00:00 2384 [oz_av] [facility] BP Diastolic 2018-09-17 00:00:00 84 mm[Hg] [facility] Height 2018-09-17 00:00:00 62 [in_i] [facility] BMI (Body Mass 2018-09-17 00:00:00 27.3 kg/m2 [facility] Index) Group BP Systolic 2018-09-17 00:00:00 120 mm[Hg] [facility] Body Weight 2018-09-17 00:00:00 2384 [oz_av] [facility] BP Diastolic 2018-08-29 00:00:00 80 mm[Hg] [facility] Height 2018-08-29 00:00:00 62 [in_i] [facility] BMI (Body Mass 2018-08-29 00:00:00 27.3 kg/m2 [facility] Index) Group BP Systolic 2018-08-29 00:00:00 105 mm[Hg] [facility] Body Weight 2018-08-29 00:00:00 2384 [oz_av] [facility] BP Diastolic 2018-08-15 00:00:00 94 mm[Hg] [facility] Height 2018-08-15 00:00:00 62 [in_i] [facility] BMI (Body Mass 2018-08-15 00:00:00 29.1 kg/m2 [facility] Index) Group BP Systolic 2018-08-15 00:00:00 136 mm[Hg] [facility] Body Weight 2018-08-15 00:00:00 2544 [oz_av] [facility] Systolic blood 2021-05-25 20:58:00 140 mm[Hg] [facility] pressure Diastolic blood 2021-05-25 20:58:00 89 mm[Hg] [facility] pressure Heart rate 2021-05-25 20:58:00 89 /min [facility] Body height 2021-05-25 20:58:00 157.5 cm [facility] Body weight 2021-05-25 20:58:00 71.668 kg [facility] BMI 2021-05-25 20:58:00 28.90 kg/m2 [facility] Respiratory rate 2021-05-10 21:40:00 20 /min [facility] Oxygen saturation in 2021-05-10 21:40:00 94 /min [facility] Arterial blood by Pulse oximetry Body temperature 2021-05-10 21:15:00 36.67 Marguerite [facility] Systolic blood 2021-05-03 13:00:00 142 mm[Hg] [facility] Diastolic blood 2021-05-03 13:00:00 97 mm[Hg] [facility] Heart rate 2021-05-03 13:00:00 63 /min [facility] Respiratory rate 2021-05-03 13:00:00 8 /min [facility] Oxygen saturation in 2021-05-03 13:00:00 95 /min [facility] Arterial blood by Medical Ce nter Pulse oximetry Body temperature 2021-05-03 09:33:00 36.61 Marguerite [facility] Body height 2021-05-03 09:33:[address] [facility] Body weight 2021-05-03 09:33:[address] [facility] BMI 2021-05-03 09:33:00 27.07 kg/m2 [facility] Respitory Rate 2020-08-03 13:45:00 [facility] Systolic (mm Hg) 2020-08-03 13:45:00 [facility] Diastolic (mm Hg) 2020-08-03 13:45:00 [facility] Respitory Rate 2020-08-03 13:30:00 [facility] Systolic (mm Hg) 2020-08-03 13:30:00 [facility] Diastolic (mm Hg) 2020-08-03 13:30:00 [facility] Respitory Rate 2020-08-03 13:15:00 [facility] Systolic (mm Hg) 2020-08-03 13:15:00 [facility] [place] Diastolic (mm Hg) 2020-08-03 13:15:00 [facility] Height 2020-07-31 19:34:00 [facility]48 [facility] 2020-07-31 19:34:00 [facility] BMI Calculated 2020-07-31 19:34:00 [facility] Respitory Rate 2020-05-12 01:00:00 [facility] Systolic (mm Hg) 2020-05-12 01:00:00 Isreal [facility] Diastolic (mm Hg) 2020-05-12 01:00:00 [facility] Respitory Rate 2020-05-12 00:45:00 [facility] Respitory Rate 2020-05-11 23:45:00 [facility] Systolic (mm Hg) 2020-05-11 23:45:00 [facility] [place] Diastolic (mm Hg) 2020-05-11 23:45:00 [facility] Systolic (mm Hg) 2020-05-11 23:30:00 [facility] [place] Diastolic (mm Hg) 2020-05-11 23:30:00 [facility] Heart Rate 2020-05-11 16:14:00 [facility] Height 2020-05-07 16:08:00 157.48 cm [facility] Weight 2020-05-07 16:08:00 [facility] BMI Calculated 2020-05-07 16:08:00 [facility] Height 2019-12-17 18:52:00 157.5 cm [facility] Weight 2019-12-17 18:52:00 [facility] Systolic (mm Hg) 2019-11-07 14:12:00 [facility] Diastolic (mm Hg) 2019-11-07 14:12:00 [facility] Heart Rate 2019-11-07 14:12:00 [facility] Height 2019-11-07 14:12:00 158.8 cm [facility] Weight 2019-11-07 14:12:00 [facility] Systolic (mm Hg) 2019-07-11 16:12:00 [facility] Diastolic (mm Hg) 2019-07-11 16:12:00 [facility] Heart Rate 2019-07-11 16:12:00 [facility] Temperature Oral (F) 2019-07-11 16:12:00 36.72 Marguerite [facility] Height 2019-07-11 16:12:00 157.5 cm [facility] Weight 2019-07-11 16:12:00 [facility] Systolic (mm Hg) 2019-06-19 16:57:00 [facility] Diastolic (mm Hg) 2019-06-19 16:57:00 [facility] Heart Rate 2019-06-19 16:57:00 [facility] Temperature Oral (F) 2019-06-19 16:57:00 36.56 Marg[facility] Respitory Rate 2019-06-19 16:57:00 [facility] Height 2019-06-19 16:57:00 157.5 cm [facility] Weight 2019-06-19 16:57:00 [facility] Systolic (mm Hg) 2019-06-19 15:35:00 [facility] [place] Diastolic (mm Hg) 2019-06-19 15:35:00 [facility] Heart Rate 2019-06-19 15:35:00 [facility] Respitory Rate 2019-06-19 15:35:00 [facility] Height 2019-06-19 15:35:00 157.5 cm [facility] Weight 2019-06-19 15:35:00 [facility] Systolic (mm Hg) 2019-06-12 14:20:00 [facility] [place] Diastolic (mm Hg) 2019-06-12 14:20:00 [facility] Heart Rate 2019-06-12 14:20:00 [facility] Temperature Oral (F) 2019-06-12 14:20:00 37.11 Marguerite [facility] Respitory Rate 2019-06-12 14:20:00 [facility] Height 2019-06-12 14:20:00 157.5 cm [facility] Weight 2019-06-12 14:20:00 [facility] Systolic (mm Hg) 2018-12-18 15:04:00 [facility] Diastolic (mm Hg) 2018-12-18 15:04:00 [facility] Heart Rate 2018-12-18 15:04:00 [facility] Temperature Oral (F) 2018-12-18 15:04:00 36.67 Marguerite [facility] Respitory Rate 2018-12-18 15:04:00 [facility] Height 2018-12-18 15:04:00 157.5 cm [facility] Weight 2018-12-18 15:04:00 [facility] Temperature Oral (F) 2018-10-16 12:11:00 97.1 F [facility] Heart Rate 2018-10-16 12:11:00 [facility] Respitory Rate 2018-10-16 12:11:00 [facility] Systolic (mm Hg) 2018-10-16 12:11:00 [facility]real [facility] Diastolic (mm Hg) 2018-10-16 12:11:00 [facility] Height 2018-10-16 01:03:00 [facility] Weight 2018-10-16 01:03:00 [facility] Temperature Oral (F) 2017-02-18 23:13:00 98.9 F [facility] Heart Rate 2017-02-18 23:13:00 [facility] Respitory Rate 2017-02-18 23:13:00 [facility] Diastolic (mm Hg) 2017-02-18 23:13:00 [facility] Systolic (mm Hg) 2017-02-18 23:13:00 [facility] Diastolic (mm Hg) 2017-02-18 21:48:00 [facility] Respitory Rate 2017-02-18 21:48:00 [facility] Systolic (mm Hg) 2017-02-18 21:48:00 [facility] Heart Rate 2017-02-18 21:48:00 [facility] Weight 2017-02-18 20:38:00 [facility] Temperature Oral (F) 2017-02-18 20:38:00 98.9 F [facility] Respitory Rate 2017-02-18 20:38:00 [facility] Heart Rate 2017-02-18 20:38:00 [facility] Systolic (mm Hg) 2017-02-18 20:38:00 Isreal [facility] Diastolic (mm Hg) 2017-02-18 20:38:00 [facility] Systolic (mm Hg) 2016-10-12 12:36:00 [facility] Diastolic (mm Hg) 2016-10-12 12:36:00 [facility] Heart Rate 2016-10-12 12:36:00 [facility] Temperature Oral (F) 2016-10-12 12:36:00 98.1 F [facility] Respitory Rate 2016-10-12 12:36:00 [facility] Temperature Oral (F) 2016-10-12 04:32:00 97.7 F [facility] Heart Rate 2016-10-12 04:32:00 [facility] Systolic (mm Hg) 2016-10-12 04:32:00 [facility] Diastolic (mm Hg) 2016-10-12 04:32:00 [facility] Respitory Rate 2016-10-12 04:32:00 [facility] Temperature Oral (F) 2016-10-12 00:11:00 98.2 F [facility] Systolic (mm Hg) 2016-10-12 00:11:00 [facility] Diastolic (mm Hg) 2016-10-12 00:11:00 [facility] Respitory Rate 2016-10-12 00:11:00 [facility] Heart Rate 2016-10-12 00:11:00 [facility] BMI Calculated 2016-10-10 07:28:00 [facility] Weight 2016-10-10 07:28:00 [facility] Height 2016-10-10 07:28:00 157.48 cm [facility] Weight 2016-10-10 03:22:00 [facility] Temperature Oral (F) 2016-02-10 21:38:00 98.2 F [facility] Respitory Rate 2016-02-10 21:38:00 [facility] Heart Rate 2016-02-10 21:38:00 [facility] Systolic (mm Hg) 2016-02-10 21:38:00 [facility] [place] Diastolic (mm Hg) 2016-02-10 21:38:00 [facility] Height 2016-02-10 18:31:00 157.48 cm [facility] Weight 2016-02-10 18:31:00 [facility] BMI Calculated 2016-02-10 18:31:00 [facility] Systolic (mm Hg) 2016-02-10 18:31:00 [facility] Diastolic (mm Hg) 2016-02-10 18:31:00 [facility] Respitory Rate 2016-02-10 18:31:00 [facility] Heart Rate 2016-02-10 18:31:00 [facility] Temperature Oral (F) 2016-02-10 18:31:00 98.4 F [facility] Temperature Oral (F) 2014-08-13 16:57:00 98.1 F [facility] Heart Rate 2014-08-13 16:57:00 [facility] Systolic (mm Hg) 2014-08-13 16:57:00 [facility] Diastolic (mm Hg) 2014-08-13 16:57:00 [facility] Respitory Rate 2014-08-13 16:57:00 [facility] Respitory Rate 2014-08-13 15:44:00 [facility] Heart Rate 2014-08-13 15:44:00 [facility] Systolic (mm Hg) 2014-08-13 15:44:00 [facility] [place] Diastolic (mm Hg) 2014-08-13 15:44:00 [facility] Heart Rate 2014-08-13 14:30:00 [facility] Respitory Rate 2014-08-13 14:30:00 [facility] Systolic (mm Hg) 2014-08-13 14:30:00 [facility]real [facility] Diastolic (mm Hg) 2014-08-13 14:30:00 [facility] Weight 2014-08-13 11:54:00 [facility] BMI Calculated 2014-08-13 11:54:00 [facility] Height 2014-08-13 11:54:00 170.18 cm [facility] Temperature Oral (F) 2014-08-13 11:54:00 97.4 F [facility] Heart Rate 2014-03-09 17:53:00 [facility] Temperature Oral (F) 2014-03-09 17:53:00 97.9 F [facility] Systolic (mm Hg) 2014-03-09 17:53:00 [place] [facility] Respitory Rate 2014-03-09 17:53:00 [facility] Diastolic (mm Hg) 2014-03-09 17:53:00 [facility] Diastolic (mm Hg) 2014-03-09 15:56:00 [facility] Systolic (mm Hg) 2014-03-09 15:56:00 [facility] Respitory Rate 2014-03-09 15:56:00 [facility] Heart Rate 2014-03-09 15:56:00 [facility] Temperature Oral (F) 2014-03-09 15:56:00 97.9 F [facility] Weight 2014-03-09 11:40:00 [facility] Height 2014-03-09 11:40:00 160.02 cm [facility] BMI Calculated 2014-03-09 11:40:00 [facility] Temperature Oral (F) 2014-03-09 11:40:00 98.1 F [facility] Heart Rate 2014-03-09 11:40:00 [facility] Respitory Rate 2014-03-09 11:40:00 [facility] Diastolic (mm Hg) 2014-03-09 11:40:00 [facility] Systolic (mm Hg) 2014-03-09 11:40:00 [facility] Systolic (mm Hg) 2014-01-14 23:08:00 [facility] [place] Diastolic (mm Hg) 2014-01-14 23:08:00 [facility] Temperature Oral (F) 2014-01-14 23:08:00 98.3 F [facility] Heart Rate 2014-01-14 23:08:00 [facility] Respitory Rate 2014-01-14 23:08:00 [facility] Respitory Rate 2014-01-14 20:30:00 [facility] Systolic (mm Hg) 2014-01-14 20:30:00 [facility] Diastolic (mm Hg) 2014-01-14 20:30:00 [facility] [place] Heart Rate 2014-01-14 20:30:00 [facility] Systolic (mm Hg) 2014-01-14 16:36:00 [facility] Respitory Rate 2014-01-14 16:36:00 [facility] Diastolic (mm Hg) 2014-01-14 16:36:00 [facility] Heart Rate 2014-01-14 16:36:00 [facility] Temperature Oral (F) 2014-01-14 13:03:00 99.1 F [facility] Height 2014-01-14 13:03:00 157.48 cm [facility] Weight 2014-01-14 13:03:00 [facility] BMI Calculated 2014-01-14 13:03:00 [facility] Systolic (mm Hg) 2014-01-14 07:25:00 [facility] Diastolic (mm Hg) 2014-01-14 07:25:00 [facility] Respitory Rate 2014-01-14 07:25:00 [facility] Heart Rate 2014-01-14 07:25:00 [facility] Temperature Oral (F) 2014-01-14 07:25:00 98.5 F [facility] Heart Rate 2014-01-14 03:04:00 [facility] Respitory Rate 2014-01-14 03:04:00 [facility] [place] Temperature Oral (F) 2014-01-14 03:04:00 98.8 F [facility] Diastolic (mm Hg) 2014-01-14 03:04:00 [facility] [place] Systolic (mm Hg) 2014-01-14 03:04:00 [facility] Weight 2014-01-14 03:04:00 [facility] Temperature Oral (F) 2013-11-22 16:34:00 98.6 F [facility] Heart Rate 2013-11-22 16:34:00 [facility] Systolic (mm Hg) 2013-11-22 16:34:00 [facility] [place] Respitory Rate 2013-11-22 16:34:00 [facility] Diastolic (mm Hg) 2013-11-22 16:34:00 [facility] BMI Calculated 2013-11-22 15:46:00 [facility] Height 2013-11-22 15:46:00 157.48 cm [facility] Weight 2013-11-22 15:46:00 [facility] Respitory Rate 2013-11-22 15:46:00 [facility] Heart Rate 2013-11-22 15:46:00 [facility] Temperature Oral (F) 2013-11-22 15:46:00 98.1 F [facility] Systolic (mm Hg) 2013-11-22 15:46:00 [facility] Diastolic (mm Hg) 2013-11-22 15:46:00 [facility] Weight 2013-08-05 15:21:09 [facility] Temperature Oral (F) 2013-08-05 15:21:09 97.7 F [facility] Systolic (mm Hg) 2013-08-05 15:21:09 [facility] [place] Diastolic (mm Hg) 2013-08-05 15:21:09 [facility] Heart Rate 2013-08-05 15:21:09 [facility] Respitory Rate 2013-08-05 15:21:09 [facility] Height 2013-02-01 15:27:40 [facility] Weight 2013-02-01 15:27:40 [facility] Temperature Oral (F) 2013-02-01 15:27:40 97.5 F [facility] Heart Rate 2013-02-01 15:27:40 [facility] Systolic (mm Hg) 2013-02-01 15:27:40 [facility]real [facility] Diastolic (mm Hg) 2013-02-01 15:27:40 [facility] Respitory Rate 2013-02-01 15:27:40 [facility] Procedures Procedure Date / Time Performing Clinician Source Performed MAMMO, screening, digital, 2021-09-24 00:00:00 [facility] LDCT, chest, for lung 2021-09-24 00:00:00 [facility] XR, femur, 2 or more view 2021-07-24 00:00:00 [facility] DEXA 2021-07-12 00:00:00 Janna Arias dical Group IN AN ELECTIVE 2021-05-10 15:58:52 Samuel Hutchison [facility] ENDOTRACHEAL AIRWAY B REPAIR, HERNIA, INCISIONAL 2021-05-10 15:40:00 [facility] OR VENTRAL E. POC GLUCOSE 2021-05-10 15:26:00 [facility] E. ABO AND RH CONFIRMATION 2021-05-10 14:39:00 [facility] ECG PRE/POST OP 2021-05-06 17:50:26 [facility], [facility] H ospital ESTIMATED GFR 2021-05-06 17:44:00 [facility] ospital COVID-19 QUALITATIVE 2021-05-06 17:44:00 [facility] RT-PCR HC COMPLETE BLD COUNT 2021-05-06 17:44:00 [facility]AUTO DIFF COMPREHENSIVE METABOLIC 2021-05-06 17:44[facility]00 [facility] TYPE AND SCREEN 2021-05-06 17:44:00 [facility], [facility] ospital HEMOGLOBIN A1C 2021-05-06 17:44:00 [facility] H ospital MR LOWER EXTREMITY JOINT 2021-05-04 08:46:[address] [facility] ONLY WITHOUT IV CONTRAST [facility] RIGHT IR PICC LINE PLACEMENT 2021-05-03 12:11:00 Suzie Lopez ODemetri Bedolla [facility] OLDER THAN 5 YRS Medical [place] COMPREHENSIVE METABOLIC 2021-01-19 21:00:00 Suzie Lopez [facility] CBC W/AUTO DIFF WITH 2021-01-19 21:00[facility] AUTO W/SCOPE 2021-01-19 21:00:00 [facility] CULTURE, URINE/SENSITIVITY 2021-01-19 21:00[facility] PELVIS WITH & WITHOUT 2020-11-20 11:45:00 April Mock [facility] CONTRAST [facility] MR ABDOMEN WITH & WITHOUT 2020-11-20 11:45:00 April Mock [facility] Knee Surgery 2020-08-03 00:00:00 Janna lau Group Procedure on Knee 2020-05-11 00:00:00 [facility] Grijalva Group Nerve Block 2020-03-03 00:00:00 Janna Arias dical Group Colonoscopy 2020-01-07 00:00:00 [facility] Arias [facility] Group MRI, knee, w/o contrast 2019-11-19 00:00:00 Mamadou [facility]as [facility] US, doppler, venous 2019-10-15 00:00:00 Michele li [facility] XR, knee, 3 view 2019-10-15 00:00:00 Janna Chen edical Group unlisted imaging order 2018-12-27 00:00:00 Heidy marcelino [facility] Clostridium difficile 2018-10-16 00:00:00 Tom Torres Toxin Assay Abdomen & Pelvis W 2018-10-15 [facility] Acute Series 2018-07-18 00:00:00 Alejandra Aparicio smoking/tobacco cessation, 2013-02-01 15:27:40 M emoagapito Aparicio patient education and counseling vaginal Pap smear results 2012-01-30 16:10:03 Ia morial [facility] Hysterectomy 2006-05-01 00:00:00 Janna Ia dical Group Cholecystectomy [facility] Appendectomy [facility] Nasal operation [facility] Arthroscopy of ankle [facility] Knee [facility] [place] replacement<sup>1</sup> Colon operation [facility] Hysterectomy [facility] section [facility] Intestine Excision [facility]ole[facility] Caesarean Section [facility] Total Hysterectomy [facility] Plan of Care Planned Planned Details Comments Source Activity Date Future 2030-01-08 Screening for malignant neoplasm [facility] Scheduled Test 00:00:00 of colon (procedure) [code = Medical [id number]] [place] Future 2030-01-08 Screening for malignant neoplasm [facility] Scheduled Test 00:00:00 of colon (procedure) [code = Medical [id number]] [place] Diagnostic Test 2021-09-24 CBC w/ auto diff [code = CBC w/ [place] Pending 00:00:00 auto diff] Medical Group Diagnostic Test 2021-09-24 CMP, serum or plasma [code = CMP, [place] Pending 00:00:00 serum or plasma] [facility] Group Diagnostic Test 2021-09-24 lipid panel, serum [code = lipid [place] Pending 00:00:00 panel, serum] [facility] Group Diagnostic Test 2021-09-24 HbA1c (hemoglobin A1c), blood [place] Pending 00:00:00 [code = HbA1c (hemoglobin A1c), Medical blood] Group Diagnostic Test 2021-09-24 hepatitis C virus Ab, serum [code [place] Pending 00:00:00 = hepatitis C virus Ab, serum] Medical Group Diagnostic Test 2021-09-24 urinalysis, reflex culture [code = [place] Pending 00:00:00 urinalysis, reflex culture] [facility] Group Diagnostic Test 2021-09-24 nicotine, quantitative, serum or [place] Pending 00:00:00 plasma [code = nicotine, Med ical quantitative, serum or plasma] Group Future 2021-09-10 Hepatitis C screening (procedure) [facility] Scheduled Test 18:31:52 [code = [id number]] [facility] Future 2021-09-10 Screening for malignant neoplasm [facility] Scheduled Test 18:31:52 of cervix (procedure) [code = Hospital [id number]] Future 2021-09-10 COVID-19 VACCINE (2 - Moderna [facility] Scheduled Test 18:31:52 3-dose series) [code = COVID-19 Hospital VACCINE (2 - Moderna 3-dose series)] Future 2021-09-10 INFLUENZA VACCINE [code = Me [facility] Scheduled Test 18:31:52 INFLUENZA VACCINE] [facility] Future 2021-09-10 Hepatitis C screening (procedure) [facility] Scheduled Test 18:31:52 [code = [id number]] [facility] Future 2021-09-10 Screening for malignant neoplasm [facility] Scheduled Test 18:31:52 of cervix (procedure) [code = Hospital [id number]] Future 2021-09-10 COVID-19 VACCINE (2 - Moderna [facility] Scheduled Test 18:31:52 3-dose series) [code = COVID-19 Hospital VACCINE (2 - Moderna 3-dose series)] Future 2021-09-10 INFLUENZA VACCINE [code = [facility] Scheduled Test 18:31:52 INFLUENZA VACCINE] [facility] 2021-06-09 Hepatitis C screening (procedure) [facility] Scheduled Test 07:04:40 [code = [id number]] [facility] 2021-06-09 Screening for malignant neoplasm [facility] Scheduled Test 07:04:40 of cervix (procedure) [code = Hospital [id number]] Future 2021-06-09 INFLUENZA VACCINE [code = [facility] Scheduled Test 07:04:40 INFLUENZA VACCINE] [facility] 2021-06-09 COVID-19 VACCINE (3 - Booster) [facility] Scheduled Test 07:04:40 [code = COVID-19 VACCINE (3 - Hospital Booster)] Future 2021-05-31 Hepatitis C screening (procedure) [facility] Scheduled Test 15:06:03 [code = [id number]] [facility] 2021-05-31 Screening for malignant neoplasm [facility] Scheduled Test 15:06:03 of cervix (procedure) [code = Hospital [id number]] Future 2021-05-31 INFLUENZA VACCINE [code = [facility] Scheduled Test 15:06:03 INFLUENZA VACCINE] [facility] Future 2021-05-31 COVID-19 VACCINE (3 - Booster) [facility] Scheduled Test 15:06:03 [code = COVID-19 VACCINE (3 - Hospital Booster)] Future 2021-05-01 DEPRESSION SCREENING (12+) [code = [facility] Scheduled Test 00:00:00 DEPRESSION SCREENING (12+)] [facility] Future 2021-05-01 DEPRESSION SCREENING (12+) [code = [facility] Scheduled Test 00:00:00 DEPRESSION SCREENING (12+)] [facility] Future 2021-03-12 Screening for malignant neoplasm [facility] Scheduled Test 13:58:55 of breast (procedure) [code = [facility] [id number]] Medicine Future 2021-03-12 Pneumococcal Combined (1 of 2 - [facility] Scheduled Test 13:58:55 PPSV23) [code = Pneumococcal [facility] Combined (1 of 2 - PPSV23)] Medicine Future 2021-03-12 TETANUS SHOT (ADULT) [code = [facility] Scheduled Test 13:58:55 TETANUS SHOT (ADULT)] [facility] Future 2021-03-12 Hepatitis C screening (procedure) [facility] Scheduled Test 13:58:55 [code = [id number]] [facility] Future 2021-03-12 Human immunodeficiency virus [facility] Scheduled Test 13:58:55 screening (procedure) [code = [facility] [id number]] Medicine Future 2021-03-12 Screening for malignant neoplasm [facility] Scheduled Test 13:58:55 of cervix (procedure) [code = [facility] [id number]] Medicine Future 2021-03-12 MEDICARE AWV (Initial) [code = [facility] Scheduled Test 13:58:55 MEDICARE AWV (Initial)] [facility] Future 2021-03-12 BMI FOLLOW UP PLAN [code = BMI [facility] Scheduled Test 13:58:55 FOLLOW UP PLAN] [facility] Future 2021-03-12 FLU VACCINE > 6 MONTHS [code = FLU [facility] Scheduled Test 13:58:55 VACCINE > 6 MONTHS] [facility] Future 2021-03-12 COVID-19 Vaccine (2 - Moderna [facility] Scheduled Test 13:58:55 2-dose series) [code = COVID-19 College of Vaccine (2 - Moderna 2-dose Medicine series)] Future 2021-03-12 ZOSTER VACCINE (1 of 2) [code = [facility] Scheduled Test 13:58:55 ZOSTER VACCINE (1 of 2)] [facility] Future 2021-03-12 Screening for malignant neoplasm [facility] Scheduled Test 13:58:55 of colon (procedure) [code = [facility] [id number]] Medicine Future 2021-03-12 CULTURE, URINE/SENSITIVITY ON ALL Ordered : [facility] Scheduled Test 09:53:03 [code = 44237-3] 03/12/2021 [facility] Future 2021-03-12 URINALYSIS AUTO W/SCOPE [code = Ordered: [facility] Scheduled Test 09:52:45 45633-1] 03/12/2021 [facility] Future 2021-01-25 COVID-19 VACCINE (2 - Moderna [facility] Scheduled Test 00:00:00 2-dose series) [code = COVID-19 Medical VACCINE (2 - Moderna 2-dose Center series)] Future 2021-01-25 COVID-19 VACCINE (2 - Moderna [facility] Scheduled Test 00:00:00 2-dose series) [code = COVID-19 Medical VACCINE (2 - Moderna 2-dose Center series)] Future 2021-01-20 Screening for malignant neoplasm [facility] Scheduled Test 12:19:04 of breast (procedure) [code = [facility] [id number]] [facility] Future 2021-01-20 TETANUS SHOT (ADULT) [code = [facility] Scheduled Test 12:19:04 TETANUS SHOT (ADULT)] [facility] Future 2021-01-20 Hepatitis C screening (procedure) [facility] Scheduled Test 12:19:04 [code = [id number]] [facility] Future 2021-01-20 Human immunodeficiency virus [facility] Scheduled Test 12:19:04 screening (procedure) [code = [facility] [id number]] [facility] Future 2021-01-20 Screening for malignant neoplasm [facility] Scheduled Test 12:19:04 of cervix (procedure) [code = [facility] 664300154] [facility] Future 2021-01-20 MEDICARE AWV (Initial) [code = [facility] Scheduled Test 12:19:04 MEDICARE AWV (Initial)] [facility] Future 2021-01-20 BMI FOLLOW UP PLAN [code = BMI [facility] Scheduled Test 12:19:04 FOLLOW UP PLAN] [facility] Future 2021-01-20 FLU VACCINE > 6 MONTHS [code = FLU [facility] Scheduled Test 12:19:04 VACCINE > 6 MONTHS] [facility] Future 2021-01-20 COVID-19 Vaccine (2 - Moderna [facility] Scheduled Test 12:19:04 2-dose series) [code = COVID-19 College of Vaccine (2 - Moderna 2-dose Medicine series)] Future 2021-01-20 ZOSTER VACCINE (1 of 2) [code = [facility] Scheduled Test 12:19:04 ZOSTER VACCINE (1 of 2)] [facility] Future 2021-01-20 Screening for malignant neoplasm Kev Scheduled Test 12:19:04 of colon (procedure) [code = [facility] [id number]] [facility] Future 2021-01-20 Screening for malignant neoplasm [facility]ev Scheduled Test 12:19:04 of breast (procedure) [code = [facility] 775879015] [facility] Future 2021-01-20 TETANUS SHOT (ADULT) [code = [facility] Scheduled Test 12:19:04 TETANUS SHOT (ADULT)] [facility] Future 2021-01-20 Hepatitis C screening (procedure) [facility] Scheduled Test 12:19:04 [code = [id number]] [facility] Future 2021-01-20 Human immunodeficiency virus [facility] Scheduled Test 12:19:04 screening (procedure) [code = [facility] 877330887] [facility] Future 2021-01-20 Screening for malignant neoplasm Kev Scheduled Test 12:19:04 of cervix (procedure) [code = [facility] 401912170] [facility] Future 2021-01-20 MEDICARE AWV (Initial) [code = [facility] Scheduled Test 12:19:04 MEDICARE AWV (Initial)] [facility] Future 2021-01-20 BMI FOLLOW UP PLAN [code = BMI [facility] Scheduled Test 12:19:04 FOLLOW UP PLAN] [facility] Future 2021-01-20 FLU VACCINE > 6 MONTHS [code = FLU [facility] Scheduled Test 12:19:04 VACCINE > 6 MONTHS] [facility] Future 2021-01-20 COVID-19 Vaccine (2 - Moderna [facility] Scheduled Test 12:19:04 2-dose series) [code = COVID-19 College of Vaccine (2 - Moderna 2-dose Medicine series)] Future 2021-01-20 ZOSTER VACCINE (1 of 2) [code = Kev Scheduled Test 12:19:04 ZOSTER VACCINE (1 of 2)] [facility] Future 2021-01-20 Screening for malignant neoplasm [facility] Scheduled Test 12:19:04 of colon (procedure) [code = [facility] 606734032] [facility] Future 2021-01-19 CULTURE, URINE/SENSITIVITY ON ALL [facility] Scheduled Test 14:59:42 [code = 72715-4] [facility] Future 2021-01-19 CULTURE, URINE/SENSITIVITY ON ALL [facility] Scheduled Test 14:59:42 [code = 80175-9] [facility] Future 2020-12-30 INFLUENZA VACCINE (#1) [code = [facility] Scheduled Test 00:00:00 INFLUENZA VACCINE (#1)] [facility] Future 2020-12-30 INFLUENZA VACCINE (#1) [code = [facility] Scheduled Test 00:00:00 INFLUENZA VACCINE (#1)] [facility] Future 2016-09-13 Lipid panel (procedure) [code = [facility] Scheduled Test 00:00:00 [id number]] [facility] Future 2016-09-13 Lipid panel (procedure) [code = [facility] Scheduled Test 00:00:00 [id number]] [facility] Future 1992-09-13 Screening for malignant neoplasm [facility] Scheduled Test 00:00:00 of cervix (procedure) [code = Medical [id number]] [facility] 1992-09-13 Screening for malignant neoplasm [facility] Scheduled Test 00:00:00 of cervix (procedure) [code = Medical 360913150] [place] Future 1990-09-13 DTAP/TDAP/TD VACCINES (1 - Tdap) [facility] Scheduled Test 00:00:00 [code = DTAP/TDAP/TD VACCINES (1 - Medical Tdap)] [facility] 1990-09-13 DTAP/TDAP/TD VACCINES (1 - Tdap) [facility] Scheduled Test 00:00:00 [code = DTAP/TDAP/TD VACCINES (1 - Medical Tdap)] [facility] 1989-09-13 HEPATITIS C SCREENING [code = [facility] Scheduled Test 00:00:00 HEPATITIS C SCREENING] [facility] Future 1989-09-13 HEPATITIS C SCREENING [code = [facility] Scheduled Test 00:00:00 HEPATITIS C SCREENING] [facility] Future 1977-09-13 PNEUMOCOCCAL VACCINE 0-64 YRS ([address] [facility] Scheduled Test 00:00:00 of 2 - PPSV23) [code = Med ical PNEUMOCOCCAL VACCINE 0-64 YRS (1 Center of 2 - PPSV23)] Future 1977-09-13 PNEUMOCOCCAL VACCINE 0-64 YRS ([address] [facility] Scheduled Test 00:00:00 of 2 - PPSV23) [code = Med ical PNEUMOCOCCAL VACCINE 0-64 YRS (1 Center of 2 - PPSV23)] Future MAMMOGRAM ANNUAL [code = MAMMOGRAM [facility] Scheduled Test ANNUAL] [facility] Future MEDICARE AWV [code = MEDICARE AWV] [facility] Scheduled Test [facility] Future TETANUS SHOT (ADULT) [code = [facility] Scheduled Test TETANUS SHOT (ADULT)] [facility] Future BMI FOLLOW UP PLAN [code = BMI [facility] Scheduled Test FOLLOW UP PLAN] [facility] Future HIV SCREENING [code = HIV Ba ylde Scheduled Test SCREENING] [facility] Future CERVICAL CANCER SCREENING 4 YEAR [facility] Scheduled Test FOLLOW UP [code = CERVICAL CANCER College SCREENING 3 YEAR FOLLOW UP] [facility] Future FLU VACCINE > 6 MONTHS [code = FLU [facility] Scheduled Test VACCINE > 6 MONTHS] [facility] Future CBC W/AUTO DIFF WITH PLATELETS Ordered: [facility] Scheduled Test [code = 97753-5] 06/12/2019 [facility] Future CELIAC DISEASE PANEL [code = Ordered: [facility] Scheduled Test 34668-7] 06/12/2019 [facility] Future VITAMIN B12 [code = 2132-9] Ordered: [facility] Scheduled Test 06/12/2019 [facility] Future VITAMIN D 25 HYDROXY [code = Ordered: [facility] Scheduled Test 1988-3] 06/12/2019 [facility] Future CALCIUM [code = 46435-4] Ordered: [facility] Scheduled Test 06/12/2019 [facility] Future COMPREHENSIVE METABOLIC PANEL Ordered: [facility] Scheduled Test [code = 62782-9] 06/12/2019 [facility] Future C-REACTIVE PROTEIN [code = 1988-5] Ordere d: [facility] Scheduled Test 06/12/2019 [facility] Future MAGNESIUM [code = 57453-8] [facility] Future IRON, TIBC AND FERRITIN PANEL Ordered: [facility] Scheduled Test [code = NOCPT] 06/12/2019 [facility] Future CLOSTRIDIUM DIFFICILE TOXIN/GDH Ordered: [facility] Scheduled Test WITH REFLEX TO PCR [code = 06/12/2019 [facility] 65688-7] [facility] Future STELARA(R)USTEKINUMAB [code = Ordered: [facility] Scheduled Test NOCPT] 06/12/2019 [facility] Future MAMMOGRAM ANNUAL [code = MAMMOGRAM [facility] Scheduled Test ANNUAL] [facility] Future TETANUS SHOT (ADULT) [code = [facility] Scheduled Test TETANUS SHOT (ADULT)] [facility] Future BMI FOLLOW UP PLAN [code = BMI [facility] Scheduled Test FOLLOW UP PLAN] [facility] Future HIV SCREENING [code = HIV [facility] Scheduled Test SCREENING] [facility] Future CERVICAL CANCER SCREENING 4 YEAR [facility] Scheduled Test FOLLOW UP [code = CERVICAL CANCER College of SCREENING 3 YEAR FOLLOW UP] [facility] Future MEDICARE AWV (Initial) [code = [facility] Scheduled Test MEDICARE AWV (Initial)] [facility] Future CLOSTRIDIUM DIFFICILE TOXIN/GDH Ordered: [facility] Scheduled Test WITH REFLEX TO PCR [code = 06/19/2019 [facility] 10702-3] [facility] Future CULTURE, STOOL [code = 625-4] Ordered: [facility] Scheduled Test 06/19/2019 [facility] Future CALPROTECTIN, FECAL [code = Ordered: [facility] Scheduled Test 45947-6] 06/19/2019 [facility] Future MAMMOGRAM ANNUAL [code = MAMMOGRAM [facility] Scheduled Test ANNUAL] [facility] Future TETANUS SHOT (ADULT) [code = [facility] Scheduled Test TETANUS SHOT (ADULT)] [facility] Future BMI FOLLOW UP PLAN [code = BMI [facility] Scheduled Test FOLLOW UP PLAN] [facility] Future HIV SCREENING [code = HIV [facility] Scheduled Test SCREENING] [facility] Future CERVICAL CANCER SCREENING 4 YEAR [facility] Scheduled Test FOLLOW UP [code = CERVICAL CANCER College of SCREENING 3 YEAR FOLLOW UP] [facility] Future MEDICARE AWV (Initial) [code = [facility] Scheduled Test MEDICARE AWV (Initial)] [facility] Future MAMMOGRAM ANNUAL [code = MAMMOGRAM [facility] Scheduled Test ANNUAL] [facility] Future TETANUS SHOT (ADULT) [code = [facility] Scheduled Test TETANUS SHOT (ADULT)] [facility] Future BMI FOLLOW UP PLAN [code = BMI [facility] Scheduled Test FOLLOW UP PLAN] [facility] Future HIV SCREENING [code = HIV [facility] Scheduled Test SCREENING] [facility] Future CERVICAL CANCER SCREENING 4 YEAR [facility] Scheduled Test FOLLOW UP [code = CERVICAL CANCER College of SCREENING 3 YEAR FOLLOW UP] [facility] Future MEDICARE AWV (Initial) [code = [facility] Scheduled Test MEDICARE AWV (Initial)] [facility] Future IN LO FLEX L1-BELOW L5 PRE OTS Ordered: [facility] Scheduled Test [code = L0625] 07/11/2019 [facility] Future MAMMOGRAM ANNUAL [code = MAMMOGRAM [facility] Scheduled Test ANNUAL] [facility] Future TETANUS SHOT (ADULT) [code = [facility] Scheduled Test TETANUS SHOT (ADULT)] [facility] Future BMI FOLLOW UP PLAN [code = BMI [facility] Scheduled Test FOLLOW UP PLAN] [facility] Future HIV SCREENING [code = HIV [facility] Scheduled Test SCREENING] [facility] Future CERVICAL CANCER SCREENING 4 YEAR [facility] Scheduled Test FOLLOW UP [code = CERVICAL CANCER College of SCREENING 3 YEAR FOLLOW UP] [facility] Future MEDICARE AWV (Initial) [code = [facility] Scheduled Test MEDICARE AWV (Initial)] [facility] Future ORT - XR KNEE BILAT 4V (CHARGE Ordered: [facility] Scheduled Test ONLY) [code = 69858] 12/17/2019 [facility] Future MAMMOGRAM ANNUAL [code = MAMMOGRAM [facility] Scheduled Test ANNUAL] [facility] Future TETANUS SHOT (ADULT) [code = [facility] Scheduled Test TETANUS SHOT (ADULT)] [facility] Future HIV SCREENING [code = HIV [facility] Scheduled Test SCREENING] [facility] Future CERVICAL CANCER SCREENING 3 YEAR [facility] Scheduled Test FOLLOW UP [code = CERVICAL CANCER College of SCREENING 3 YEAR FOLLOW UP] [facility] Future MEDICARE AWV (Initial) [code = [facility] Scheduled Test MEDICARE AWV (Initial)] [facility] Future FLU VACCINE > 6 MONTHS [code = FLU [facility] Scheduled Test VACCINE > 6 MONTHS] [facility] Future BMI FOLLOW UP PLAN [code = BMI [facility] Scheduled Test FOLLOW UP PLAN] [facility] Future ZOSTER VACCINE (1 of 2) [code = [facility] Scheduled Test ZOSTER VACCINE (1 of 2)] [facility] Future Upcoming [facility] Scheduled Test EncountersDateTypeSpecialtyTr[facility] JwysIiinoqkzvnt49/08/2019Office VisitEndRichardson Martinez MD[address] [facility], [facility], [address] [place] [address] [phone] (Fax)Health MaintenanceDue DateLast DoneCommentsMAMMOGRAM [id number] 1971MEDICARE AWV1971TETANUS SHOT (ADULT)09/13/1986BMI FOLLOW UP PLAN09/13/1989HIV YVTEOUFKE57/16/1990CERVICAL CANCER SCREENING 3 YEAR FOLLOW UP09/13/1992FLU VACCINE > 6 [id number]/29/2018documented as of this encounter [code = Upcoming EncountersDateTypeSpecialtyCare JaaqNcdgnxnxahq96/08/2019Office Richardson Marrero MD[address] [facility], [address] [place] [address] [phone] (Fax)Health MaintenanceDue DateLast DoneCommentsMAMMOGRAM [id number] 1971MEDICARE AWV1971TETANUS SHOT (ADULT)09/13/1986BMI FOLLOW UP PLAN09/13/1989HIV MDGEIZOFS06/16/1990CERVICAL CANCER SCREENING 3 YEAR FOLLOW UP09/13/1992FLU VACCINE > 6 [id number]/29/2018documented as of this encounter] Future FLU VACCINE > 6 MONTHS [code = FLU [facility] Scheduled Test VACCINE > 6 MONTHS] Sony n Future MEDICARE AWV (Initial) [code = [facility] Scheduled Test MEDICARE AWV (Initial)] He rmann Future Screening for malignant neoplasm [facility] Scheduled Test of breast (procedure) [code = [place] 461221702] Future CERVICAL CANCER SCREENING 3 YEAR [facility] Scheduled Test FOLLOW UP [code = CERVICAL CANCER [facility] SCREENING 3 YEAR FOLLOW UP] Future Screening for malignant neoplasm [facility] Scheduled Test of cervix (procedure) [code = [place] 208429010] Future DTaP,Tdap,and Td Vaccines (1 - [facility] Scheduled Test Tdap) [code = DTaP,Tdap,and Td [place] Vaccines (1 - Tdap)] Future HIV SCREENING [code = HIV Me morial Scheduled Test SCREENING] [facility] Future TETANUS SHOT (ADULT) [code = [facility] Scheduled Test TETANUS SHOT (ADULT)] Herm chelsey Future DTaP,Tdap,and Td Vaccines (1 - [facility] Scheduled Test Tdap) [code = DTaP,Tdap,and Td [facility] Vaccines (1 - Tdap)] Future PNEUMOCOCCAL 0-64 YEARS COMBINED [facility] Scheduled Test SERIES (1 of 1 - PPSV23) [code = [facility] PNEUMOCOCCAL 0-64 YEARS COMBINED SERIES (1 of 1 - PPSV23)] Future MAMMOGRAM ANNUAL [code = MAMMOGRAM [facility] Scheduled Test ANNUAL] [facility] Future ZOSTER VACCINE (1 of 2) [code = [facility] Scheduled Test ZOSTER VACCINE (1 of 2)] H ermann Future Screening for malignant neoplasm [facility] Scheduled Test of colon (procedure) [code = [facility] 631786610] Future Depression Screening [code = [facility] Scheduled Test Depression Screening] Herm chelsey Future BMI FOLLOW UP PLAN [code = BMI [facility] Scheduled Test FOLLOW UP PLAN] [place] [facility] CT ABD/PELVIS ENTEROGRAPHY W [code [facility] Scheduled Test = 46366-3] [place] Future INFLUENZA VACCINE (#1) [code = [facility] Scheduled Test INFLUENZA VACCINE (#1)] He [facility] Future ORT - XR KNEE BILAT 4V (CHARGE [facility] Scheduled Test ONLY) [code = 97250] Prachi nn Future FLU VACCINE > 6 MONTHS [code = FLU [facility] Scheduled Test VACCINE > 6 MONTHS] [facility] Future IN LO FLEX L1-BELOW L5 PRE OTS [facility] Scheduled Test [code = L0625] [place] Future CLOSTRIDIUM DIFFICILE TOXIN/GDH [facility] Scheduled Test WITH REFLEX TO PCR [code = [place] 70552-8] Future CULTURE, STOOL [code = 625-4] [facility] Scheduled Test [place] Future CALPROTECTIN, FECAL [code = [facility] Scheduled Test 41496-9] [facility] Future CBC W/AUTO DIFF WITH PLATELETS [facility] Scheduled Test [code = 29498-6] [place] Future CELIAC DISEASE PANEL [code = [facility] Scheduled Test 23486-7] [place] Future VITAMIN B12 [code = 2132-9] [facility] Scheduled Test [place] Future VITAMIN D 25 HYDROXY [code = [facility] Scheduled Test 1988-] [facility] Future CALCIUM [code = 30623-3] Mem orial Scheduled Test [facility] Future COMPREHENSIVE METABOLIC PANEL [facility] Scheduled Test [code = 16628-2] [place] Future C-REACTIVE PROTEIN [code = 1987-5] [facility] Scheduled Test [facility] Future MAGNESIUM [code = 24081-7] M emorial Scheduled Test [place] Future IRON, TIBC AND FERRITIN PANEL [facility] Scheduled Test [code = NOCPT] [facility] Future CLOSTRIDIUM DIFFICILE TOXIN/GDH [facility] Scheduled Test WITH REFLEX TO PCR [code = [facility] 11800-9] Future STELARA(R)USTEKINUMAB [code = [facility] Scheduled Test NOCPT] [place] Future Upcoming [facility] Scheduled Test EncountersDateTypeSpecialtyCare [place] QalkGcrdmnswfhs49/08/2019Office VisitLeilaniocrinologRichardson Nobles MD[address] [facility], [address] [place] [address] [phone] (Fax)Health MaintenanceDue DateLast DoneCommentsMAMMOGRAM [id number] 1971MEDICARE AWV1971TETANUS SHOT (ADULT)09/13/1986BMI FOLLOW UP PLAN09/13/1989HIV XBVVRAALO76/16/1990CERVICAL CANCER SCREENING 3 YEAR FOLLOW UP09/13/1992FLU VACCINE > 6 [id number]/29/2018documented as of this encounter [code = Upcoming EncountersDateTypeSpecialtyCare LrvbGogxjsmqkap78/08/2019Office Richardson Marrero MD[address], [address] [place] [address] [phone] (Fax)Health MaintenanceDue DateLast DoneCommentsMAMMOGRAM [id number] 1971MEDICARE AWV1971TETANUS SHOT (ADULT)09/13/1986BMI FOLLOW UP PLAN09/13/1989HIV AIKZQEVXY42/16/1990CERVICAL CANCER SCREENING 3 YEAR FOLLOW UP09/13/1992FLU VACCINE > 6 [id number]/29/2018documented as of this encounter] Future FLU VACCINE > 6 MONTHS [code = FLU [facility] Scheduled Test VACCINE > 6 MONTHS] Sony n Future MEDICARE AWV (Initial) [code = [facility] Scheduled Test MEDICARE AWV (Initial)] He rmann Future Screening for malignant neoplasm [facility] Scheduled Test of breast (procedure) [code = [place] 361011770] Future CERVICAL CANCER SCREENING 3 YEAR [facility] Scheduled Test FOLLOW UP [code = CERVICAL CANCER [place] SCREENING 3 YEAR FOLLOW UP] Future Screening for malignant neoplasm [facility] Scheduled Test of cervix (procedure) [code = [place] 125493143] Future DTaP,Tdap,and Td Vaccines (1 - [facility] Scheduled Test Tdap) [code = DTaP,Tdap,and Td [place] Vaccines (1 - Tdap)] Future HIV SCREENING [code = HIV Me morial Scheduled Test SCREENING] [facility] Future TETANUS SHOT (ADULT) [code = [facility] Scheduled Test TETANUS SHOT (ADULT)] Herm chelsey Future DTaP,Tdap,and Td Vaccines (1 - [facility] Scheduled Test Tdap) [code = DTaP,Tdap,and Td [place] Vaccines (1 - Tdap)] Future PNEUMOCOCCAL 0-64 YEARS COMBINED [facility] Scheduled Test SERIES (1 of 1 - PPSV23) [code = [place] PNEUMOCOCCAL 0-64 YEARS COMBINED SERIES (1 of 1 - PPSV23)] Future MAMMOGRAM ANNUAL [code = MAMMOGRAM [facility] Scheduled Test ANNUAL] Markus Future CT ABD/PELVIS ENTEROGRAPHY W [code 1 Occu rrences [facility] Scheduled Test = 80473-0] starting College of 06/12/2019 Medicine until 01/11/2020 Future 2022-01-04 Vj Wang, [address]; , Janna Appointment 00:00:00 [place] [address] [facility] Instructions [facility] Encounters Start End Encounter Admission Attending Care Care Encounter Source Date/Time Date/Time Type Type Clinicians Facility Department ID 2021-07-23 Outpatient [facility] [id number] [place] 23:40:06 [id number] [facility] 2021[facility]07[facility]20 [facility] 16:53:01 [facility] 2021-07-14 [facility] Common 08:11:03 [facility] 2021-07-07 [facility] 16:[facility]01 [facility] 2021-02-03 Outpatient NORMA MOCK Surgery [id number] SLE 03:19:49 APRIL 2016-11-04 Inpatient Chioma [facility] [id number] [place] 09:30:00 [facility] 2021-10-04 2021-10-04 [facility] [id number] [place] 12:30:00 12:30:00 H 0606 da [facility] 2021-10-04 2021-10-04 [facility] [place] - [id number] Gustavo holland 00:00:00 00:00:00 Jer Wang MD: Shinto Epi scop 1700 [facility] [address] [facility] , Ph. [phone] 2021-09-24 Outpatient Hawkins_M [facility] [id number] [place] 12:06:00 12:06:00 0527 [facility] 2021-09-24 2021-09-24 Mer[facility] [place] - [id number] M atagor 00:00:00 00:00:00 An[facility] SHIPPING WEIGHER: [address] [facility] [address], [place] [address] , Ph. 2021-09-21 2021-09-21 [facility] [id number] [facility] 10:54:21 11:23:41 [facility] Medic[facility] e 2021-09-13 2021-09-13 Outpatient DESAI_VARGAS [facility] [address] [place] 10:03:00 10:03:00 H [facility]16 [facility] 2021-09-08 2021-09-10 [facility] [id number] SLE 00:20:00 17:56:00 2021-09-07 2021-09-07 Outpatient DESAI_RATRI [facility] 839 [place] 04:42:00 04:42:00 H 0510 [facility] 2021-09-01 2021-09-01 [address] [facility] [id number] [facility] 12:30:30 23:59:00 RANDY 2021-08-23 2021-08-23 Outpatient NISH [facility] [id number] [facility] 15:54:39 16:21:28 APRIL [facility] 2021-07-28 2021-07-28 Outpatient Hawkins[facility] [id number] [place] 08:07:00 08:07:00 0415 da Medical Group 2021-07-24 2021-07-24 Outpatient Hawkins_M MMG [facility] [id number] [place] 01:09:00 01:09:00 0326 da Medical Group 2021-07-24 2021-07-24 Outpatient Hawkins_M MMG [facility] [id number] [place] 01:09:00 01:09:00 0327 Medical Group 2021-07-24 2021-07-24 Merari [place] - [id number] M atagor 00:00:00 00:00:00 Anahy Long, Medical Medical SHIPPING WEIGHER: [address] [facility] [address], [place] [address] , Ph. 2021-07-14 2021-07-14 ambulatory STLMLC STLC [id number] Common 00:00:00 00:00:00 [facility] 2021-07-12 2021-07-12 Outpatient [facility] [id number] [place] 10:19:00 10:19:00 0314 Medical Group 2021-07-12 2021-07-12 Merari [place] - [id number] M atagor 00:00:00 00:00:00 Anahy Long, Medical Medical SHIPPING WEIGHER: [address] [facility] [address], [place] [address] , Ph. 2021-07-05 2021-07-07 Inpatient ER SHELDON GIRON [facility] Internal [id number] [facility] 04:16:00 14:04:00 Med 2021-07-02 2021-07-02 Outpatient MIRACLE [facility] [id number] [facility] 10:43:00 14:08:00 APRIL 2021-07-02 2021-07-02 Outpatient ARMANDO MOCK [facility] [id number] [facility] 10:19:32 10:19:32 APRIL Crawford e of Medicin e 2021-07-01 2021-07-01 Outpatient EL [facility] [id number] SLE 10:58:51 23:59:00 2021-06-28 2021-06-28 Outpatient BEULAHREEN_MAN VILLA [facility] [id number] [place] 12:09:00 12:09:00 PATRICK 0228 [facility] Program 2021-06-28 2021-06-28 Vj VILL[place] - [id number] M atagor 00:00:00 00:00:00 Jer Wang MD: Shinto Epi scop 1700 [facility] [address] [facility] , Ph. [phone] 2021-06-24 Outpatient Hawkins[facility] [id number] [place] 10:57:00 10:57:00 0224 Medical Group 2021-06-24 2021-06-24 Merari [facility] [place] - [id number] M at[place]or 00:00:00 00:00:00 Anahy Long Medical Medical SHIPPING WEIGHER: [address] [facility] [address], [place] [address] , Ph. 2021-06-18 2021-06-18 Outpatient ARMANDO FIELDS [facility] [id number] [address] [place] [address] 10:20:57 11:15:16 FALGUNI maddox of Medicin e 2021-06-08 2021-06-08 Outpatient [facility] [id number] [place] 04:51:00 04:51:00 0215 Medical Group 2021-06-03 2021-06-03 Outpatient Hawkins_M [facility] [id number] [place] 08:52:00 08:52:00 0204 Medical Group 2021-05-25 2021-05-25 Office Do, 1.2.840.1 [id number] Methodi 14:45:00 15:13:18 Visit Frank Gutierrez 87211.1.1 769 s t 3.430.2.7 Hospit a .3.913757 l .8 2021-05-25 2021-05-25 Travel 1.2.840.1 1.2.600.210 [id number] Methodi 00:00:00 00:00:[address] 3.430.2.7 0.2.7.3.698 [facility]69[facility] 084.8 l .8 2021-05-13 2021-05-13 Outpatient Hawkins_M [facility] [id number] [place] 01:55:00 01:55:00 0113 Medical Group 2021-05-13 2021-05-13 Outpatient Hawkins_M MM[facility] [id number] [place] 01:55:00 01:55:00 0119 Medical Group 2021-05-10 2021-05-10 [facility], 1.2.840.1 [id number] Methodi 08:30:00 16:29:00 Encounter Frank E. 19794.1.[address] 3.430.2.7 Hospit a .3.876534 l .8 2021-05-10 2021-05-10 Surgery [facility], 1.2.840.1 [id number] Methodi 09:55:00 12:25:00 Frank E. 55469.1.1 608 s t 3.430.2.7 Hospit a .3.053060 l .8 2021-05-10 2021-05-10 Anesthesia Terri Forbes A. 1.2.840.1 10 [id number] Methodi 09:41:00 11:23:00 Event Anuja Drake 41640.1.[address] 3.430.2.7 Hospit a .3.887672 l .8 2021-05-06 2021-05-06 Pre-Admiss [facility] 1.2.840.1 [id number] Methodi 11:00:00 12:00:00 ion Frank E. 95274.1.1 520 s t Testing 3.430.2.7 Hospit a .3.991400 l .8 2021-05-06 2021-05-06 Outpatient Hawkins_M MMG [facility] [id number] [place] 02:54:00 02:54:00 0108 Medical Group 2021-05-06 2021-05-06 Travel 1.2.840.1 1.2.066.842 [id number] Methodi 00:00:00 00:00:[address] 3.430.2.7 0.2.7.3.698 Ho spita .3.044865 084.8 l .8 2021-05-04 2021-05-04 [facility] Elly Dodson [facility] [id number] 07:13:37 23:59:00 Encounter 1.5, [facility] 2021-05-04 2021-05-04 Outpatient MIRACLE DODSON [facility] SLE [id number] SLEH 07:13:37 23:59:00 ELLY 2021-05-03 2021-05-03 [facility] [id number] 08:45:33 23:59:00 Encounter [facility] 2021-05-03 2021-05-03 Outpatient MALLORYMN SLE SLEH [id number] [facility] 08:45:33 23:59:00 [facility] 2021-05-03 2021-05-03 Outside Fabian, [facility] [id number] 00:00:00 00:00:00 Orders [facility] 2021-04-30 2021-04-30 Outpatient Nieves_M [facility] [id number] [place] 10:22:00 10:22:00 0105 Medical Group 2021-04-29 2021-04-29 Outpatient EL SLE SLEH [id number] [facility] 00:00:00 00:00:00 2021-04-28 2021-04-28 Outpatient Silvanokins_M [facility] [id number] -2020 [place] 04:54:00 04:54:00 1229 Medical Group 2021-04-28 2021-04-28 Merari [facility] [place] - [id number] M atagor 00:00:00 00:00:00 Anahy Long [facility] Medical SHIPPING WEIGHER: [address] [facility] [address], [place] [address] , Ph. 2021-04-22 2021-04-22 Outpatient [facility]ivek [facility] [id number] [place] 03:28:00 03:28:00 1223 Medical Group 2021-04-22 2021-04-22 Merari [facility] [place] - [id number] M atagor 00:00:00 00:00:00 Anahy grady [facility] Medical SHIPPING WEIGHER: [address] [facility] [address], [place] [address] , Ph. 2021-04-16 2021-04-16 Outpatient Vivek [facility] [id number] [place] 12:39:00 12:39:00 1221 Medical Group 2021-04-15 2021-04-15 Outpatient ARMANDO MOCK [facility] [id number] [facility] 09:44:17 10:29:41 APRIL maddox of Medicin e 2021-04-13 2021-04-13 Orders afshinvt, [facility] [id number] 00:00:00 00:00:00 Only Suzie Batista [facility] 2021-03-31 2021-03-31 Travel 1.2.840.1 1.2.237.079 [id number] Methodi 00:00:00 00:00:[address] 3.430.2.7 0.2.7.3.698 Ho spita .3.426569 084.8 l .8 2021-03-30 2021-03-30 Prep for Jerry, 1.2.840.1 [id number] Methodi 00:00:00 00:00:00 Surgery Muriel P 27678.1.[address] 3.430.2.7 Hospit a .3.871051 l .8 2021-03-29 2021-03-29 Outpatient LILY_MAN VILL[place] [id number] [place] 11:52:00 11:52:00 PATRICK 1129 [facility] 2021-03-29 2021-03-29 Vj [facility] - [id number] Gustavo holland 00:00:00 00:00:00 Jer Wang MD: Shinto Epi scop 1700 [facility]irk [facility] [address] [facility] , Ph. [phone] 2021-03-23 Outside [facility] [id number] [facility] St 00:00:00 00:00:[address] [facility] 2021-03-17 2021-03-17 Outpatient Vivek [facility] [id number] [place] 11:17:00 11:17:00 1124 Medical Group 2021-03-12 2021-03-12 Office ARMANDO Lopez 1.2.840.114 [id number] [facility] 09:30:00 12:19:22 Visit Suzie AMBULATOR 350.1.13.21 College Y 0.2.7.2.686 of [id number] Medi marlene 355 e 2021-03-11 2021-03-11 Office Do, 1.2.840.1 [id number] Methodi 14:30:00 15:38:25 Visit Frank Gutierrez 94808.1.1 490 s t 3.430.2.7 Hospit a .3.094682 l .8 2021-03-11 2021-03-11 Travel 1.2.840.1 1.2.866.822 6630 [id number] Methodi 00:00:00 00:00:[address] 3.430.2.7 0.2.7.3.698 Ho spita .3.260118 084.8 l .8 2021-03-04 2021-03-04 Telephone Walker, 1.2.840.1 [id number] Methodi 00:00:00 00:00:[address] 3.430.2.7 Hospit a .3.210511 l .8 2021-03-02 2021-03-02 Outpatient Hawkins_M MMG [facility] [id number] -2020 [place] 03:02:00 03:02:00 1102 da Medical Group 2021-03-02 2021-03-02 Outpatient Hawkins_M MMG [facility] [id number] [place] 03:02:00 03:02:00 1104 da Medical Group 2021-03-02 2021-03-02 Maxi [facility] [place] - [id number] M atagor 00:00:00 00:00:00 Satnam Dueñas MD: Medical Medica l [address] [facility] [address], [place] [address] , Ph. [phone] 2021-02-23 2021-02-23 Outpatient Hawkins_M MMG [facility] [id number] [place] 08:10:00 08:10:00 1026 da Medical Group 2021-02-19 2021-02-19 Outpatient Hawkins_M MMG [facility] [id number] [place] 12:41:00 12:41:00 1022 da Medical Group 2021-02-19 2021-02-19 Merari [facility] [place] - [id number] M at[place]or 00:00:00 00:00:00 Anahy Long, Medical Medical SHIPPING WEIGHER: [address] [place] [address] [address], [place] [address] , Ph. 2021-02-02 2021-02-02 Araceli Cornelius, 1.2.840.1 [id number] Methodi 00:00:00 00:00:[address] 3.430.2.7 Hospit a .3.611600 l .8 2021-01-25 2021-01-25 Outpatient Hawkins_M MMG [facility] [id number] [place] 03:14:00 03:14:00 0927 da Medical Group 2021-01-25 2021-01-25 Outpatient Hawkins_M MMG [facility] [id number] [place] 03:14:00 03:14:00 0928 da Medical Group 2021-01-25 2021-01-25 Merari [facility] [place] - [id number] M at[place]or 00:00:00 00:00:00 Anahy Long Medical Medical SHIPPING WEIGHER: [address] [facility] [address], [place] [address] , Ph. 2021-01-19 2021-01-19 Office ARMANDO LOPEZ 1.2.840.114 [id number] [facility] 13:31:56 16:19:42 Visit OYEBUINI AMBULATOR 350.1.13.21 College Y 0.2.7.2.686 of 433.3311599 Medi marlene 355 e 2021-01-18 2021-01-18 Outpatient Silvanokins_M [facility] [id number] [place] 10:53:00 10:53:00 0920 da Medical Group 2020-12-28 2020-12-28 Outpatient AMBREEN_FAR [facility] 839 [place] 11:52:00 11:52:00 HANA 0830 [facility] 2020-12-28 2020-12-28 Vj [place] - [id number] M at[place]or 00:00:00 00:00:00 Jer Wang MD: Shinto Epi scop 1700 [facility] dirk [facility] [address] Cornelius , Ph. [phone] 2020-12-18 Out[facility] [id number] [place] 02:10:00 02:10:00 0820 da Medical Group 2020-12-18 2020-12-18 Outpatient [facility] [id number] [place] 02:10:00 02:10:00 0828 da Medical Group 2020-12-18 2020-12-18 Merari [facility] [place] - [id number] M at[place]or 00:00:00 00:00:00 Anahy Long Medical Medical SHIPPING WEIGHER: [address] [facility] [address], [place] [address] , Ph. 2020-12-15 2020-12-15 Outpatient Hawkins_M MMG MMG [id number] -2020 [place] 09:22:00 09:22:00 0819 da Medical Group 2020-12-08 2020-12-08 Outpatient Hawkins_M MMG MMG [id number] -2020 [place] 03:08:00 03:08:00 0810 da Medical Group 2020-12-08 2020-12-08 Merari MMG [place] - [id number] M [place]or 00:00:00 00:00:00 Anahy Long Medical Medical SHIPPING WEIGHER: [address] [facility] [address], [place] [address] , Ph. 2020-12-05 2020-12-05 Outpatient Hawkins_M MMG MMG [id number] -2020 [place] 12:26:00 12:26:00 0809 da Medical Group 2020-12-02 2020-12-02 Outpatient Hawkins_M MMG MMG [id number] -2020 [place] 06:31:00 06:31:00 0806 da Medical Group 2020-12-02 2020-12-02 Outpatient Hawkins_M MMG MMG [id number] -2020 [place] 06:31:00 06:31:00 0807 da Medical Group 2020-11-30 2020-11-30 Outpatient Hawkins_M MMG MMG [id number] -2020 [place] 12:35:00 12:35:00 0802 da Medical Group 2020-11-30 2020-11-30 Merari [facility] [place] - [id number] M [place] 00:00:00 00:00:00 Anahy Long, Medical Medical SHIPPING WEIGHER: [address] [facility] [address], [place] [address] , Ph. 2020-11-20 2020-11-20 [facility] [id number] 08:15:16 23:59:00 Encounter 1.5, [facility] 2020-11-20 2020-11-20 [facility] Andrew Mocksz [facility] [id number] 08:00:00 08:14:00 En[address] 1.5, [facility] 2020-11-20 2020-11-[address] [facility] SLE [id number] [facility] 00:00:00 00:00:00 2020-11-20 2020-11-20 [facility] [id number] [facility] 00:00:00 00:00:00 [facility] 2020-11-17 2020-11-17 Outpatient Hawkins_M MMG MMG [id number] -2020 [place] 02:14:00 02:14:00 0720 Medical Group 2020-11-17 2020-11-17 Merari MM [place] - [id number] M at[place]or 00:00:00 00:00:00 Anahy Long, Medical Medical SHIPPING WEIGHER: [address] [address], [place] [address] , Ph. 2020-11-10 2020-11-10 [facility], [facility] [id number] 00:00:00 00:00:00 [facility] 2020-10-26 2020-10-26 Outpatient Hawkins_M MMG MMG [id number] -2020 [place] 02:35:00 02:35:00 0628 Medical Group 2020-10-26 2020-10-26 Merari MMG [place] - [id number] M at[place]or 00:00:00 00:00:00 Anahy Long, Medical Medical SHIPPING WEIGHER: [address] [facility] [address], [place] [address] , Ph. 2020-10-12 2020-10-12 Outpatient Hawkins_M MMG MMG [id number] [place] 03:56:00 03:56:00 0614 da Medical Group 2020-10-12 2020-10-12 Outpatient Hawkins_M MMG [facility] [id number] [place] 03:56:00 03:56:00 0622 da Medical Group 2020-10-12 2020-10-12 Merari [facility] [place] - [id number] M atagor 00:00:00 00:00:00 [facility] SHIP[facility] WEIGHER: [address] [facility] [address], [place] [address] , Ph. 2020-10-05 2020-10-05 [facility] [id number] [place] 12:48:00 12:48:00 PATRICK 0607 [facility] 2020-10-05 2020-10-05 [facility] [place] - [id number] M atagor 00:00:00 00:00:00 Jer Wang MD: Shinto Epi scop 1700 [facility] [address] Cornelius , Ph. [phone] 2020-09-22 [facility] [id number] [place] 01:04:00 01:04:00 0527 Medical Group 2020-08-18 2020-08-18 Outpatient Hawkins_M MMG [facility] [id number] [place] 09:58:00 09:58:00 0423 da Medical Group 2020-08-12 2020-08-12 Outpatient Hawkins_M MMG [facility] [id number] [place] 04:29:00 04:29:00 0414 da Medical Group 2020-08-12 2020-08-12 Outpatient Hawkins_M MMG [facility] [id number] [place] 04:29:00 04:29:00 0415 Medical Group 2020-08-12 2020-08-12 Outpatient Hawkins_M MMG [facility] [id number] -2020 [place] 04:29:00 04:29:00 0418 Medical Group 2020-08-12 2020-08-12 Outpatient [facility]okins[facility]M [facility] [id number] -2020 [place] 04:29:00 04:29:00 0420 Medical Group 2020-08-12 2020-08-12 Merari [facility] [place] - [id number] M atagor 00:00:00 00:00:00 Anahy Nice [facility] SHIPPING WEIGHER: [address] [facility] [address], [place] [address] , Ph. 2020-08-03 2020-08-03 [facility] [id number] 675 Memoria 10:11:00 14:30:00 Surgery r Markus [address] [place] [address] 2020-08-03 2020-08-03 Outpatient [facility] [id number] Memoria 05:11:00 09:30:00 ELLY ruelas [facility] 2020-07-31 2020-07-31 Outpatient Yan_W [facility] [id number] [place] 11:16:00 11:16:00 0402 [facility] 2020-07-31 2020-07-31 Outpatient Yan_W [facility] [id number] [place] 11:16:00 11:16:00 0403 [facility] 2020-07-31 2020-07-31 Parish Adams [facility] [place] - [id number] [place] 00:00:00 00:00:00 MD: Candi Nice [facility], [facility] [address], [facility], Otolaryngol [facility] [address] , Ph. 2020-07-16 2020-07-16 [facility] [id number] [place] 05:29:00 05:29:00 0401 Medical [facility] 2020-07-06 2020-07-06 Outpatient AMBREEN_MAN [place] MDROBERTO CARLOS [id number] [place] 10:58:00 10:58:00 PATRICK 0308 [facility] 2020-07-06 2020-07-06 Vj [place] - [id number] M atagor 00:00:00 00:00:00 Jer Wang MD: Shinto Epi scop 1700 [facility] [address] [facility] , Ph. [phone] 2020-06-23 Outpatient Yan_[place] [id number] [place] 03:46:00 03:46:00 0223 Medical Group 2020-06-23 2020-06-23 Outpatient Yan_W [place] [id number] [place] 03:46:00 03:46:00 0225 Medical Group 2020-06-23 2020-06-23 Merari [facility] [place] - [id number] M atagor 00:00:00 00:00:00 Anahy grady [facility] Medical SHIPPING WEIGHER: [address] [facility] [address], [place] [address] , Ph. 2020-06-03 2020-06-03 [facility] [id number] [place] 12:45:00 12:45:00 0203 Medical Group 2020-05-27 2020-05-27 Outpatient Yan_W MMG [facility] [id number] [place] 02:53:00 02:53:00 0127 Medical Group 2020-05-27 2020-05-27 Outpatient Yan_W MMG [place] [id number] [place] 02:53:00 02:53:00 0128 Medical Group 2020-05-27 2020-05-27 PIERRE Nicole [place] - [id number] [place] 00:00:00 00:00:00 MD: Candi [facility] [address] [place] [address], Otolaryngol [facility] [address] , Ph. 2020-05-11 2020-05-12 [facility] [id number] 675 Memoria 15:36:00 01:40:00 Surgery r Markus 33 l [facility] 2020-05-11 2020-05-11 Outpatient [facility] [id number] Memoria 09:36:00 19:40:00 ELLY [facility] 2020-05-10 2020-05-10 Outpatient Hawkins_M MMG MMG [id number] -2020 [place] 07:52:00 07:52:00 0110 da Medical Group 2020-05-10 2020-05-10 Outpatient Hawkins_M MMG MMG [id number] -2020 [place] 07:52:00 07:52:00 0115 da Medical Group 2020-05-10 2020-05-10 Outpatient Hawkins_M MMG MMG [id number] -2020 [place] 07:52:00 07:52:00 0120 da Medical Group 2020-05-10 2020-05-10 Outpatient Hawkins_M MMG MMG [id number] [place] 07:52:00 07:52:00 0123 da Medical Group 2020-05-04 2020-05-04 Outpatient Hawkins_M MMG MMG [id number] [place] 11:55:00 11:55:00 0104 da Medical Group 2020-05-04 2020-05-04 Outpatient Hawkins_M MMG MMG [id number] -2020 [place] 11:55:00 11:55:00 0107 da Medical Group 2020-05-04 2020-05-04 Merari [facility] [place] - [id number] M atagor 00:00:00 00:00:00 Anahy Nice da Pickett, Medical Medical SHIPPING WEIGHER: [address] [facility] [address], [place] [address] , Ph. 2020-04-30 2020-04-30 Outpatient Hawkins_M MMG MMG [id number] [place] 10:21:00 10:21:00 1231 da Medical Group 2020-04-28 2020-04-28 Outpatient G_Pappas MMG MMG [id number] [place] 11:28:00 11:28:00 1229 da Medical Group 2020-04-26 2020-04-26 Outpatient AMBREEN_FAR MEHOP MEHOP [id number] [place] 03:43:00 03:43:00 HANA 0304 [facility] 2020-04-26 2020-04-26 Outpatient AMBREEN_FAR MEHOP MEHOP [id number] [place] 03:43:00 03:43:00 HANA 1227 [facility] 2020-04-10 2020-04-10 Outpatient G_Pappas MMG [facility] [id number] [place] 05:24:00 05:24:00 1211 da Medical Group 2020-04-08 2020-04-08 Outpatient AMBREEN_FAR MEHOP MEHOP [id number] [place] 04:50:00 04:50:00 HANA 1209 [facility] 2020-04-08 2020-04-08 [facility] [place] - [id number] atagor 00:00:00 00:00:00 Jer Wang MD: Shinto Epi scop 1700 [facility]acy [facility] [address] [facility] , Ph. [phone] 2020-04-07 Outpatient AMBREEN_FAR [facility] [id number] [place] 12:19:00 12:19:00 HANA 1208 [facility] 2020-04-02 2020-04-02 Outpatient G_Pappas MMG [facility] [id number] [place] 03:25:00 03:25:00 1203 da Medical Group 2020-04-02 2020-04-02 Outpatient G_Pappas MMG MM [id number] [place] 03:25:00 03:25:00 1207 da Medical Group 2020-04-02 2020-04-02 Jake [facility] [place] - [id number] M atagor 00:00:00 00:00:00 Discovery ysabel Franco MD: [address] [place] [address] - [facility] [address] [address] , Ph. [phone] 2020-03-28 2020-03-28 Outpatient Hawkins_M MMG MMG [id number] [place] 01:09:00 01:09:00 1128 da Medical Group 2020-03-18 2020-03-18 Outpatient AMBREEN_FAR MEHOP MDHOP [id number] [place] 10:35:00 10:35:00 HANA 1118 da [facility] 2020-03-18 2020-03-18 Outpatient Hawkins_M MMG MMG [id number] [place] 03:31:00 03:31:00 1118 da Medical Group 2020-03-18 2020-03-18 Outpatient Hawkins_M MMG MMG [id number] [place] 03:31:00 03:31:00 1119 da Medical Group 2020-03-18 2020-03-18 Outpatient Hawkins_M MMG MMG [id number] [place] 03:31:00 03:31:00 1123 da Medical Group 2020-03-18 2020-03-18 Merari G [place] - [id number] M atagor 00:00:00 00:00:00 Anahy Long, Medical Medical SHIPPING WEIGHER: [address] [facility] [address], [place] [address] , Ph. 2020-03-16 2020-03-16 Outpatient Hawkins_M MMG MMG [id number] [place] 12:25:00 12:25:00 [facility] 2020-03-09 2020-03-09 Outpatient G_Pappas MMG MMG [id number] [place] 04:12:00 04:12:00 [facility] 2020-03-05 2020-03-05 Outpatient Yan_W MMG MMG [id number] [place] 10:15:00 10:15:00 [facility] 2020-02-11 2020-02-11 Outpatient Yan_W MMG MMG [id number] [place] 11:59:00 11:59:00 1013 [facility] 2020-02-07 2020-02-07 Outpatient AMBREEN_FAR MEHOP MDHOP [id number] [place] 04:36:00 04:36:00 ROMJocelyn 1102 da [facility] 2020-01-29 2020-01-29 Outpatient ENMANUEL, [facility] [id number] [place] 00:00:00 00:00:00 MARTINEZ [address] 2020-01-29 2020-01-29 Outpatient ENMANUEL, [facility] [id number] [place] 00:00:00 00:00:00 MARTINEZ [place] [facility] 2020-01-29 2020-01-29 Outpatient ENMANUEL, [facility] [id number] [place] 00:00:00 00:00:00 MARTINEZ [address] 2020-01-24 2020-01-24 Outpatient cMcDonald MMG MMG [id number] [place] 12:07:00 12:07:00 0925 [facility] Group 2020-01-24 2020-01-24 Outpatient cMcDonald MMG MMG [id number] [place] 12:07:00 12:07:00 0926 [facility] 2020-01-24 2020-01-24 Merari MM [place] - [id number] [place] 00:00:00 00:00:00 Anahy Long [facility] Medical SHIPPING WEIGHER: [address] [place] [address] [address] [address] , Ph. 2020-01-17 2020-01-17 Outpatient cMcDonald MMG MMG [id number] [place] 02:28:00 02:28:00 0918 [facility] 2020-01-17 2020-01-17 Outpatient cMcDonald MMG MMG [id number] [place] 02:28:00 02:28:00 0920 [facility] 2020-01-17 2020-01-17 Jake MM [place] - [id number] [place] 00:00:00 00:00:00 Discovery ysabel Franco MD: [address] [place] [address] [address], [place] [address] , Ph. [phone] 2020-01-08 2020-01-08 Outpatient EL [facility] [id number] [facility] 00:00:00 00:00:00 2019-12-17 2019-12-17 Office nullFlavo [facility] [id number] [place] 18:39:48 20:29:29 Visit [facility] Medicine [facility] 2019-12-17 2019-12-17 Office ARMANDO Sandoval [id number] 13:39:48 15:29:29 Visit Mohamad AMBULATOR [id number] 2019-12-17 2019-12-17 Office ARMANDO Sandoval 1.2.840.114 [id number] [facility] 13:39:48 15:29:29 Visit Mohamad AMBULATOR 350.1.13.21 College Y 0.2.7.2.686 [id number] [facility] 600 e 2019-12-11 2019-12-11 Telephone [place] [id number] Memoria 00:00:00 00:00:00 r Orthopaedic l Surgery- Markus [place] 2019-12-11 2019-12-11 Telephone [facility] 1.2.840.114 [id number] 00:00:00 00:00:00 [facility] 350.1.13.10 Surgical 4.2.7.2.686 Specialti [id number] [address] 2019-12-09 2019-12-09 [facility] 839 [place] 03:35:00 03:35:00 HANA 0810 da [facility] 2019-12-09 2019-12-09 [facility] [place] - [id number] M atagor 00:00:00 00:00:00 Jer Wang MD: Shinto Epi scop 1700 [facility] [address] Cornelius cohen , Ph. [phone] 2019-12-08 Outpatient cMcDonald [facility] [id number] [place] 10:12:00 10:12:00 0809 da [facility] Group 2019-12-03 2019-12-03 [place] [id number] [place] 02:38:00 02:38:00 0804 Medical Group 2019-12-03 2019-12-03 [place] [id number] [place] 02:38:00 02:38:00 0805 Medical Group 2019-12-03 2019-12-03 Outpatient cMcDonald MMG MMG [id number] [place] 02:38:00 02:38:00 0806 [facility] 2019-12-03 2019-12-03 Shanelle [facility] [place] - [id number] M atagor 00:00:00 00:00:00 Discovery ysabel Morley MD: 600 [facility] [place] - [address], [place] [address] , Ph. 2019-12-02 2019-12-02 [place] [id number] [place] 10:16:00 10:16:00 0803 [facility] 2019-11-26 2019-11-26 [place] [id number] [place] 12:11:00 12:11:00 0729 Medical [facility] 2019-11-14 2019-11-14 Outpatient Hawkins_M MMG MM [place] 06:53:00 06:53:00 0716 [facility] 2019-11-12 2019-11-12 [place] [id number] [place] 12:34:00 12:34:00 0714 [facility] 2019-11-12 2019-11-12 [place] [id number] [place] 12:34:00 12:34:00 0715 [facility] 2019-11-07 2019-11-07 Office [facility] [id number] Memoria 14:07:33 14:22:33 Visit r Orthopaedic l Surgery- Markus [place] 2019-11-07 2019-11-07 Office Erica [facility] [id number] 09:07:33 09:22:33 Visit [facility] 350.1.13.10 Surgical 4.2.7.2.686 [facility] [id number] 198 [place] 2019-11-07 2019-11-07 Outpatient R MORLEY, [facility] [id number] Univers 09:00:00 09:00:00 SHANELLE [facility] of [facility] 2019-11-07 2019-11-07 Outpatient Hawkins_M MMG MMG [id number] [place] 02:16:00 02:16:00 0709 [facility] 2019-11-07 2019-11-07 Outpatient Hawkins_M MMG MMG [id number] [place] 02:16:00 02:16:00 0711 [facility] 2019-11-07 2019-11-07 Outpatient Hawkins_M MMG MMG [id number] [place] 02:16:00 02:16:00 0713 da Medical Group 2019-11-07 2019-11-07 Merari MMG [place] - [id number] M at[place] 00:00:00 00:00:00 [facility] SHIPPING WEIGHER: [address] [place] [address] , Ph. 2019-11-06 2019-11-06 Outpatient Hawkins_M MMG MMG [id number] [place] 02:20:00 02:20:00 0708 Medical Group 2019-10-31 2019-10-31 Outpatient [facility] [id number] [place] 00:00:00 00:00:00 LEX 640 Jaleno nathaniel 2019-10-28 2019-10-28 Outpatient [facility] [id number] [place] 00:00:00 00:00:[address] 2019-10-24 2019-10-24 Outpatient Hawkins_M MMG MMG [id number] [place] 11:34:00 11:34:00 0702 da [facility] Group 2019-10-15 2019-10-15 Outpatient Hawkins_M MMG MMG [id number] [place] 04:41:00 04:41:00 0616 da Medical Group 2019-10-15 2019-10-15 Julia MMG [place] - [id number] M at[place] 00:00:00 00:00:00 Discovery ysabel Schulz SHIPPING WEIGHER: [address] [address] , Ph. 2019-09-19 2019-09-19 Outpatient SLE [facility] [id number] [id number] [facility] 00:00:00 00:00:00 [id number] 2019-09-13 2019-09-13 Outpatient Hawkins_M MMG MM [place] 02:27:00 02:27:00 0608 da Medical Group 2019-09-13 2019-09-13 [place] [id number] [place] 02:27:00 02:27:00 0615 da Medical Group 2019-09-12 2019-09-12 Outpatient EL SLEH SLE [id number] [facility] 00:00:00 00:00:00 2019-09-12 2019-09-12 Outpatient SLEH SLEH [id number] [id number] [facility]H 00:00:00 00:00:00 [id number] 2019-09-10 2019-09-10 Outpatient [facility] [id number] [place] 10:28:00 10:28:00 HANA 0512 [facility] 2019-09-09 2019-09-09 Outpatient AMBREEN_FAR [facility] 839 [place] 11:55:00 11:55:00 HANA 0511 [facility] 2019-09-09 2019-09-09 [facility] [place] - [id number] M at[place]or 00:00:00 00:00:00 Jer Wang MD: Shinto Epi scop 1700 [facility] [address] [facility] , Ph. [phone] 2019-09-08 Outpatient AMBREEN_FAR [facility] 839 [place] 12:52:00 12:52:00 HANA 0510 [facility] 2019-08-23 2019-08-23 Outpatient Hawkins_M MMG [facility] [place] 11:16:00 11:16:00 0424 Medical Group 2019-08-23 2019-08-23 Merari GEE [place] - [id number] M at[place] 00:00:00 00:00:00 Anahy Long Medical Medical SHIPPING WEIGHER: 600 [facility] [address], [place] [address] , Ph. 2019-07-28 2019-07-28 Outpatient [facility] [id number] -[id number] [place] 06:03:00 06:03:00 0329 Medical Group 2019-07-26 2019-07-26 Outpatient Silvanokins[facility] [id number] [place] 09:49:00 09:49:00 0327 Medical Group 2019-07-26 2019-07-26 Merari G[place] - [id number] M [place] 00:00:00 00:00:00 Anahy Long Medical Medical SHIPPING WEIGHER: [address] [place] [address], [place] [address] , Ph. 2019-07-19 2019-07-19 Outpatient [facility] [id number] 9447 [place] 00:00:00 00:00:00 LEX [address] [facility] 2019-07-15 2019-07-15 Outpatient A_Byrd [facility] [id number] [place] 06:35:00 06:35:00 0316 Medical Group 2019-07-12 2019-07-12 Outpatient A_Byrd [facility] [id number] [place] 04:55:00 04:55:00 0313 Medical Group 2019-07-12 2019-07-12 [facility] 83 [place] 01:29:00 01:29:00 PATRICK 0320 [facility] Outre [facility] Program 2019-07-12 2019-07-12 Merari [place] - [id number] M at[place] 00:00:00 00:00:00 Anahy Long Medical Medical SHIPPING WEIGHER: [address] [address], [place] [address] , Ph. 2019-07-11 2019-07-11 [facility] [id number] Memoria 16:02:17 17:07:46 Visit [facility] Acute Care Surgery 2019-07-11 2019-07-11 Office ARMANDO Dalal 1.2.840.114 [id number] 11:02:17 12:07:46 Visit Luís ChenDemetri AMBULATOR 350.1.13.21 Y 0.2.7.2.686 [id number] 2019-07-11 2019-07-11 Office ARMANDO Dalla 1.2.840.114 [id number] [facility] 11:02:17 12:07:46 Visit Luís ChenDemetri AMBULATOR 350.1.13.21 College Y 0.2.7.2.686 of [id number] [facility] 815 e 2019-06-26 2019-06-26 Outpatient A_Byrd MMG MMG [id number] [place] 11:17:00 11:17:00 0226 Medical Group 2019-06-19 2019-06-19 Office nullFlavo [facility] [id number] [place] 15:23:37 19:56:08 Visit molly ruelas [facility] Freddy Magana [facility] 2019-06-19 2019-06-19 Office nullFlavo [facility] [id number] Memoria 16:50:49 17:20:49 Visit [facility] ology 2019-06-19 2019-06-19 Office [facility] 1.2.840.114 [id number] 09:23:37 13:56:08 Visit Jase 350.1.13.21 0.2.7.2.686 [id number] 2019-06-19 2019-06-19 Office [facility] 1.2.840.114 [id number] [facility] 09:23:37 13:56:08 Visit Jase 350.1.13.21 Co llege 0.2.7.2.686 of [id number] [facility] 510 e 2019-06-19 2019-06-19 Office ARMANDO Mock 1.2.840.114 [id number] 10:50:49 11:20:49 Visit April AMBULATOR 350.1.13.21 Y 0.2.7.2.686 [id number] 2019-06-19 2019-06-19 Office ARMANDO Mock 1.2.840.114 [id number] [facility] 10:50:49 11:20:49 Visit April AMBULATOR 350.1.13.21 College Y 0.2.7.2.686 of [id number] [facility] 325 e 2019-06-12 2019-06-12 Office nullFlavo [facility] [id number] Memoria 14:17:31 14:47:31 [facility] 2019-06-12 2019-06-12 Office ARMANDO Mock 1.2.840.114 [id number] 08:17:31 08:47:31 Visit April AMBULATOR 350.1.13.21 Y 0.2.7.2.686 [id number] [facility] 2019-06-12 2019-06-12 Office ARMANDO Mock 1.2.840.[id number] [place] [address] 08:17:31 08:47:31 Visit April AMBULATOR 350.1.13.21 College Y 0.2.7.2.686 of [id number] [facility] 325 e 2019-06-10 2019-06-10 [facility] [id number] [place] 12:00:00 12:00:00 HANA 0210 [facility] 2019-06-10 2019-06-10 [facility] [place] - [id number] M atagor 00:00:00 00:00:00 Jer Wang MD: Shinto Epi scop 1700 [facility] marko [address], [address], Health Outre [facility], [facility] Program [address] , Ph. [phone] 2019-06-05 Outpatient G_Pappas MMG MM [id number] [place] 11:10:00 11:10:00 0205 da Medical Group 2019-05-08 2019-05-08 [facility] [id number] [place] 11:02:00 11:02:00 0108 Medical Group 2019-05-08 2019-05-08 Mychal Espinosa [facility] [place] - [id number] M at[place]or 00:00:00 00:00:00 MD Suhas: Discovery grady [address] [place] [address] - [address] [address] , Ph. 2019-04-22 2019-04-22 Outpatient G_Pappas [facility] [id number] [place] 11:35:00 11:35:00 0107 Medical Group 2019-03-18 2019-03-18 [facility] [place] - [id number] M at[place] 00:00:00 00:00:00 Jer Wang MD: Shinto Epi scop 1700 [facility] Karen, [facility], [facility] Program [address] , Ph. [phone] 2019-01-29 Jake JAY [place] - [id number] M [place] 00:00:00 00:00:00 Discovery ysabel Franco MD: [address] [place] [address], [place] [address] , Ph. [phone] 2019-01-25 2019-01-25 Jake JAY [place] - [id number] M [place] 00:00:00 00:00:00 Discovery ysabel Franco MD: [address] [place] [address], [place] [address] , Ph. [phone] 2019-01-07 2019-01-07 Jake JAY [place] - [id number] M [place] 00:00:00 00:00:00 Discovery ysabel Franco MD: [address] [place] [address] [address], [place] [address] , Ph. [phone] 2018-12-27 2018-12-27 Jake JAY [place] - [id number] M [place] 00:00:00 00:00:00 Discovery ysabel Franco MD: [address] [place] [address] [address], [place] [address] , Ph. [phone] 2018-12-18 2018-12-18 [facility] [id number] [facility] 14:55:23 21:38:01 Visit [facility] 2018-12-18 2018-12-18 Office Jeremiah Otto BCM 1.2.840.114 [id number] 09:55:23 16:38:01 Visit K AMBULATOR 350.1.13.21 Y 0.2.7.2.686 [id number] 2018-12-18 2018-12-18 Office Otto Daniels BCM 1.2.840.114 [id number] [facility] 09:55:23 16:38:01 Visit K AMBULATOR 350.1.13.21 College Y 0.2.7.2.686 of [id number] [facility] marlene 325 e 2018-12-17 2018-12-17 Mychal JAY [place] - [id number] M [place] 00:00:00 00:00:00 MD Suhas: Discovery [facility] 201, [facility], [place] [address] , Ph. 2018-12-07 2018-12-07 Mychal JAY [place] - [id number] M [place] 00:00:00 00:00:00 MD Suhas: Discovery [facility] 201, [facility] [address] , Ph. 2018-10-17 2018-10-17 Mychal JAY [place] - [id number] M atagor 00:00:00 00:00:00 MD Suhas: Discovery grady [address] [place] [address] 201, [facility] [address] , Ph. 2018-10-15 2018-10-[address] [id number] Memoria 22:22:00 16:45:00 Inpatient [facility] 2018-09-17 2018-09-17 Julia MM [place] - [id number] M [place] 00:00:00 00:00:00 Discovery ysabel Schulz : [address] [place] [address] [place] [address] , Ph. 2018-08-29 2018-08-29 Mychal Espinosa [facility] [place] - [id number] M atagor 00:00:00 00:00:00 MD Suhas: [address] [place] [address] , Ph. 2018-08-15 2018-08-15 Mychal Espinosa [facility] [place] - [id number] M atagor 00:00:00 00:00:00 MD Suhas: [address] [place] [address] , Ph. 2018-07-18 2018-07-18 Departed Henry Goldman. [id number] Memoria 19:26:00 22:16:00 Emergency r [facility] l [facility] 2017-02-18 2017-02-19 Emergency nullFlavo [facility] [id number] Memoria 20:36:00 00:04:00 r Markus 32 l [place] [facility] 2016-10-10 2016-10-12 Inpatient nullFlavo [facility] 76528 22243 Memoria 05:55:00 15:24:00 r Markus 31 l [place] [facility] 2016-07-15 2016-07-19 Inpatient 1 [facility] [id number] [facility] 18:47:00 10:30:00 [facility] a l ([facility]) 2016-02-10 2016-02-10 Emergency nullFlavo [facility] [id number] Memoria 18:15:00 21:40:[address] [facility] 2014-08-13 2014-08-13 EC nullIndero [facility] [id number] 675 Memoria 11:48:00 17:01:00 Emergency r Markus 29 l [facility] 2014-03-09 2014-03-09 EC nullFlavo [facility] [id number] 675 Memoria 11:36:00 18:21:00 Emergency r Niobrara 28 l [facility] 2014-01-14 2014-01-14 EC nullFlavo [facility] [id number] 675 Memoria 12:52:00 23:11:00 Emergency r Markus 27 l [facility] 2014-01-14 2014-01-14 EC nullFlavo [facility] [id number] 675 Memoria 02:58:00 07:26:00 Emergency r Markus 26 l [facility] 2013-11-27 2013-11-27 Lab Report nullIndero [facility] 1722 [id number] Memoria 00:00:00 00:00:00 r Markus [id number] l [facility] 2013-11-22 2013-11-22 EC nullFlavo [facility] [id number] 675 Memoria 15:32:00 16:37:00 Emergency r Niobrara 25 l [facility] 2013-11-19 2013-11-19 Emergency E OEI, [facility] [id number] 22 [facility] 10:08:00 12:55:00 [facility] 2013-08-05 2013-08-05 Office nullFlavo [facility] 75172 87976 Memoria 00:00:00 00:00:00 Visit r [facility] [id number] l [facility] Results Test Description Test Time Test Comments Results Result Comments Source HEPATIC FUNCTION PANEL 2021-09-10 06:58:01 Test Item Value Reference Range Interpretation Comme nts TOTAL PROTEIN (BEAKER) (test code = 770) 5.7 gm/dL 6.0-8.3 L ALBUMIN (BEAKER) (test code = 1145) 3.3 g/dL 3.5-5.0 L BILIRUBIN TOTAL (BEAKER) (test code = 377) 0.2 mg/dL 0.2-1.2 BILIRUBIN DIRECT (BEAKER) (test code = 706) 0.1 mg/dL 0.1-0.5 ALKALINE PHOSPHATASE (BEAKER) (test code = 346) 60 U/L 40-150 AST (SGOT) (BEAKER) (test code = 353) 13 U/L 5-34 ALT (SGPT) (BEAKER) (test code = 347) 11 U/L 6-55 Cooler Worker ID - MANUEL GBASIC METABOLIC [id number] 06:58:00 Test Item Value Reference Range Interpretation Comments SODIUM (BEAKER) 141 meq/L 136-145 (test code = 381) POTASSIUM (BEAKER) 3.8 meq/L 3.5-5.1 (test code = 379) CHLORIDE (BEAKER) 108 meq/L 98-107 H (test code = 382) CO2 (BEAKER) (test 26 meq/L 22-29 code = 355) BLOOD UREA NITROGEN 8 mg/dL 7-21 (BEAKER) (test code = 354) CREATININE (BEAKER) 0.70 mg/dL 0.57-1.25 (test code = 358) GLUCOSE RANDOM 104 mg/dL 70-105 (BEAKER) (test code = 652) CALCIUM (BEAKER) 8.8 mg/dL 8.4-10.2 (test code = 697) EGFR (BEAKER) (test 89 mL/min/1.73 ESTIMA FRANCINE GFR IS code = 1092) sq m NOT ACCURATE CREATININE CLEARANCE IN PREDICTING GLOMERULAR FILTRATION RATE . ESTIMATED GFR I S NOT APPLICABLE FOR DIALYSIS PATIEN TS. Cooler Worker ID - MANUEL [id number] 06:58:00 Test Item Value Reference Range Interpretation Comments MAGNESIUM (BEAKER) (test code = 1.5 mg/dL 1.6-2.6 L 627) Cooler Worker ID - MANUEL [id number] 06:58:00 Test Item Value Reference Range Interpretation Comments PHOSPHORUS (BEAKER) (test code = 3.5 mg/dL 2.3-4.7 604) Cooler Worker ID - MANUEL GCBC W/PLT COUNT & AUTO [id number] 06:26:41 Test Item Value Reference Range Interpretation Comments WHITE BLOOD CELL COUNT (BEAKER) 6.3 K/ L 3.5-10.5 (test code = 775) RED BLOOD CELL COUNT (BEAKER) 4.19 M/ L 3.93-5.22 (test code = 761) HEMOGLOBIN (BEAKER) (test code = 13.0 GM/DL 11.2-15.7 410) HEMATOCRIT (BEAKER) (test code = 39.6 % 34.1-44.9 411) MEAN CORPUSCULAR VOLUME (BEAKER) 94.5 fL 79.4-94.8 (test code = 753) MEAN CORPUSCULAR HEMOGLOBIN 31.0 pg 25.6-32.2 (BEAKER) (test code = 751) MEAN CORPUSCULAR HEMOGLOBIN CONC 32.8 GM/DL 32.2-35.5 (BEAKER) (test code = 752) RED CELL DISTRIBUTION WIDTH 11.5 % 11.7-14.4 L (BEAKER) (test code = 412) PLATELET COUNT (BEAKER) (test 174 K/CU MM 150-450 code = 756) MEAN PLATELET VOLUME (BEAKER) 8.3 fL 9.4-12.3 L (test code = 754) NUCLEATED RED BLOOD CELLS 0 /100 WBC 0-0 (BEAKER) (test code = 413) NEUTROPHILS RELATIVE PERCENT 47 % (BEAKER) (test code = 429) LYMPHOCYTES RELATIVE PERCENT 42 % (BEAKER) (test code = 430) MONOCYTES RELATIVE PERCENT 7 % (BEAKER) (test code = 431) EOSINOPHILS RELATIVE PERCENT 4 % (BEAKER) (test code = 432) BASOPHILS RELATIVE PERCENT 0 % (BEAKER) (test code = 437) NEUTROPHILS ABSOLUTE COUNT 2.95 K/ L 1.56-6.13 (BEAKER) (test code = 670) LYMPHOCYTES ABSOLUTE COUNT 2.66 K/ L 1.18-3.74 (BEAKER) (test code = 414) MONOCYTES ABSOLUTE COUNT (BEAKER) 0.46 K/ L 0.24-0.36 H (test code = 415) EOSINOPHILS ABSOLUTE COUNT 0.23 K/ L 0.04-0.36 (BEAKER) (test code = 416) BASOPHILS ABSOLUTE COUNT (BEAKER) 0.02 K/ L 0.01-0.08 (test code = 417) IMMATURE GRANULOCYTES-RELATIVE 0 % 0-1 PERCENT (BEAKER) (test code = 2801) HEPATIC FUNCTION [id number] 04:16:08 Test Item Value Reference Range Interpretation Comments TOTAL PROTEIN (BEAKER) (test code = 5.9 gm/dL 6.0-8.3 L 770) ALBUMIN (BEAKER) (test code = 1145) 3.3 g/dL 3.5-5.0 L BILIRUBIN TOTAL (BEAKER) (test code 0.3 mg/dL 0.2-1.2 = 377) BILIRUBIN DIRECT (BEAKER) (test 0.1 mg/dL 0.1-0.5 code = 706) ALKALINE PHOSPHATASE (BEAKER) (test 65 U/L 40-150 code = 346) AST (SGOT) (BEAKER) (test code = 15 U/L 5-34 353) ALT (SGPT) (BEAKER) (test code = 15 U/L 6-55 347) Cooler Worker ID - LILIANYURI [id number] 04:16:07 Test Item Value Reference Range Interpretation Comments MAGNESIUM (BEAKER) (test code = 1.9 mg/dL 1.6-2.6 627) Cooler Worker ID - LILIANYURI [id number] 04:16:07 Test Item Value Reference Range Interpretation Comments PHOSPHORUS (BEAKER) (test code = 1.9 mg/dL 2.3-4.7 L 604) Cooler Worker ID - LILIANYURI LBASIC METABOLIC [id number] 04:16:06 Test Item Value Reference Range Interpretation Comments [...] S NOT APPLICABLE FOR DIALYSIS PATIEN TS. Cooler Worker ID - LILIANYURI LCBC W/PLT COUNT & AUTO [id number] 04:02:29 Test Item Value Reference Range Interpretation Comments WHITE BLOOD CELL COUNT (BEAKER) 3.8 K/ L 3.5-10.5 (test code = 775) RED BLOOD CELL COUNT (BEAKER) 4.60 M/ L 3.93-5.22 (test code = 761) HEMOGLOBIN (BEAKER) (test code = 14.0 GM/DL 11.2-15.7 410) HEMATOCRIT (BEAKER) (test code = 44.5 % 34.1-44.9 411) MEAN CORPUSCULAR VOLUME (BEAKER) 96.7 fL 79.4-94.8 H (test code = 753) MEAN CORPUSCULAR HEMOGLOBIN 30.4 pg 25.6-32.2 (BEAKER) (test code = 751) MEAN CORPUSCULAR HEMOGLOBIN CONC 31.5 GM/DL 32.2-35.5 L (BEAKER) (test code = 752) RED CELL DISTRIBUTION WIDTH 11.7 % 11.7-14.4 (BEAKER) (test code = 412) PLATELET COUNT (BEAKER) (test 179 K/CU MM 150-450 code = 756) MEAN PLATELET VOLUME (BEAKER) 8.4 fL 9.4-12.3 L (test code = 754) NUCLEATED RED BLOOD CELLS 0 /100 WBC 0-0 (BEAKER) (test code = 413) NEUTROPHILS RELATIVE PERCENT 29 % (BEAKER) (test code = 429) LYMPHOCYTES RELATIVE PERCENT 58 % (BEAKER) (test code = 430) MONOCYTES RELATIVE PERCENT 8 % (BEAKER) (test code = 431) EOSINOPHILS RELATIVE PERCENT 5 % (BEAKER) (test code = 432) BASOPHILS RELATIVE PERCENT 0 % (BEAKER) (test code = 437) NEUTROPHILS ABSOLUTE COUNT 1.08 K/ L 1.56-6.13 L (BEAKER) (test code [...] 0-1 PERCENT (BEAKER) (test code = 2801) FL, UGI, AIR CONTRAST, WITH SMALL [id number] 17:07:00Reason for exam:- >[facility] : 1970 Sex: FFINAL REPORT Small bowel follow through: Clinical History: Bowel obstruction After Gastrografin was given orally, multiple images were obtained over the abdomen. FINDINGS: Multiple images were obtained with contrast in the small bowel. The colon was visualized inone hour 30 minutes. No significant small bowel dilation, or fold thickening. Fluoro time: None Number of images obtained: 14 Impression:No evidence of small bowel obstruction Signed: Chelsey Billings MDReportVerified Date/Time: 09/08/2021 17:07:54 Reading Location: [address] Ortho Consult Reading Room SARS-COV2/RT-PCR ([facility])2021-09-08 07:53:42 Test Item Value Reference Range Interpretation Comments SARS-COV2/RT-PCR Negative Negative The SARS-Co V-2 target (test code = nucleic acids a re not [id number]) detected in thi s specimen. Negative result s do not preclude SARS-C oV-2 infection and s hould not be used as the oliva e basis for patient managem ent decisions. Nega tive results must be combine d with clinical observ ations, patient history , and epidemiological information. A false negativ e result may occur if a spec imen is improperly ronny ected, transported or handled. This SARS CoV-2 test is a rapid, real-yulisa e RT-PCR test intended for th e qualitative detection of nu cleic acid from SARS-CoV-2 in a nasopharyngeal swab specimen collected from individuals suspected of CO VID-19 by their healthcar e provider. This test has been authorized by FDA under an EUA for use by authorized laboratories. This test is only authorized for the duration of the declaration that circumstances exist justifying the authorization of emergency use of in vitro diagnostic tests for detection and/or diagnosis of COVID-19 under Section 564(b)(1) of the Federal Food, Drug and Cosmetic Act, 21 U.S.C. 360bbb- 3(b)(1), unless the authorization is terminated or revoked sooner. Fact Sheet for Healthcare Providers: https://www.[employer]/Documents/Xpert%20Xpress%20SARS%20CoV-2/Fact%20Sheets/3023802%20SARS-COV -2%20HEALTHCARE%20PROVIDERS%20FACT%20SHEET.pdf Fact Sheet for Healthcare Patients: https://www.[employer]/Documents/Xpert %20Xpress%20SARS%20CoV-2/Fact%20Sheets/3023801%35EWZS-DZK-8%20PATIENT%20FACT%20 SHEET.pdfBAPSYCHIATRIC METABOLIC [id number] 06:44:32 Test Item Value Reference Range Interpretation Comments SODIUM (BEAKER) 139 meq/L 136-145 (test code = 381) POTASSIUM (BEAKER) 3.9 meq/L 3.5-5.1 (test code = 379) CHLORIDE (BEAKER) 105 meq/L 98-107 (test code = 382) CO2 (BEAKER) (test 28 meq/L 22-29 code = 355) BLOOD UREA NITROGEN 9 mg/dL 7-21 (BEAKER) (test code = 354) CREATININE (BEAKER) 0.67 mg/dL 0.57-1.25 (test code = 358) GLUCOSE RANDOM 99 mg/dL 70-105 (BEAKER) (test code = 652) CALCIUM (BEAKER) 8.0 mg/dL 8.4-10.2 L (test code = 697) EGFR (BEAKER) (test 94 mL/min/1.73 ESTIMA FRANCINE GFR IS code = 1092) sq m NOT ACCURATE CREATININE CLEARANCE IN PREDICTING GLOMERULAR FILTRATION RATE . ESTIMATED GFR I S NOT APPLICABLE FOR DIALYSIS PATIEN TSDemetri Cooler Worker ID - WILBUR [id number] 06:38:30 Test Item Value Reference Range Interpretation Comments PARTIAL THROMBOPLASTIN TIME 35.7 seconds 22.5-36.0 (BEAKER) (test code = 760) PROTHROMBIN TIME/[id number] 06:37:27 Test Item Value Reference Range Interpretation Comments PROTIME (BEAKER) 13.1 seconds 11.9-14.2 (test code = 759) INR (BEAKER) (test 1.01 See_Comment [Automat ed message] code = 370) The system [employer] generated this result transmitted ref erence range: <=5.90. The reference range was not used to int erpret this result as normal/abnormal . RECOMMENDED COUMADIN/WARFARIN INR THERAPY RANGESSTANDARD DOSE: 2.0 - 3.0 Includes: PROPHYLAXIS forvenous thrombosis, systemic embolization; TREATMENT for venous thrombosis and/or pulmonary embolus.HIGH RISK: Target INR is 2.5-3.5 for patients with mechanical heart valves.CBC W/PLT COUNT & AUTO DIFFERENTIAL 2021-09-08 06:34:48 Test Item Value Reference Range Interpretation Comments WHITE BLOOD CELL COUNT (BEAKER) 6.2 K/ L 3.5-10.5 (test code = 775) RED BLOOD CELL COUNT (BEAKER) 4.60 M/ L 3.93-5.22 (test code = 761) HEMOGLOBIN (BEAKER) (test code = 14.1 GM/DL 11.2-15.7 410) HEMATOCRIT (BEAKER) (test code = 44.1 % 34.1-44.9 411) MEAN CORPUSCULAR VOLUME (BEAKER) 95.9 fL 79.4-94.8 H (test code = 753) MEAN CORPUSCULAR HEMOGLOBIN 30.7 pg 25.6-32.2 (BEAKER) (test code = 751) MEAN CORPUSCULAR HEMOGLOBIN CONC 32.0 GM/DL 32.2-35.5 L (BEAKER) (test code = 752) RED CELL DISTRIBUTION WIDTH 11.6 % 11.7-14.4 L (BEAKER) (test code = 412) PLATELET COUNT (BEAKER) (test 206 K/CU MM 150-450 code = 756) MEAN PLATELET VOLUME (BEAKER) 8.5 fL 9.4-12.3 L (test code = 754) NUCLEATED RED BLOOD CELLS 0 /100 WBC 0-0 (BEAKER) (test code = 413) NEUTROPHILS RELATIVE PERCENT 62 % (BEAKER) (test code = 429) LYMPHOCYTES RELATIVE PERCENT 28 % (BEAKER) (test code = 430) MONOCYTES RELATIVE PERCENT 9 % (BEAKER) (test code = 431) EOSINOPHILS RELATIVE PERCENT 2 % (BEAKER) (test code = 432) BASOPHILS RELATIVE PERCENT 0 % (BEAKER) (test code = 437) NEUTROPHILS ABSOLUTE COUNT 3.83 K/ L 1.56-6.13 (BEAKER) (test code = 670) LYMPHOCYTES ABSOLUTE COUNT 1.71 K/ L 1.18-3.74 (BEAKER) (test code = 414) MONOCYTES ABSOLUTE COUNT (BEAKER) 0.54 K/ L 0.24-0.36 H (test code = 415) EOSINOPHILS ABSOLUTE COUNT 0.10 K/ L 0.04-0.36 (BEAKER) (test code = 416) BASOPHILS ABSOLUTE COUNT (BEAKER) 0.02 K/ L 0.01-0.08 (test code = 417) IMMATURE GRANULOCYTES-RELATIVE 0 % 0-1 PERCENT (BEAKER) (test code = 2801) RAD, ABDOMEN/KUB, 1 VIEW [id number] 05:29:00Reason for exam:->c/f SBO [facility] 1970 Sex: FFINAL REPORT TECHNIQUE: Supine views of the abdomen. INDICATION: c/f SBO. COMPARISON: 11/07/2018. FINDINGS/IMPRESSION:Upper abdomen is not entirely included within the vuxdz-xv-uhfp. Bowel gas pattern is nonobstructive. Status post cholecystectomy. A thecal pump catheter device overlies the right hemiabdomen. No acute osseous abnormality. Signed: Kehinde Adam Verified Date/Time: 09/08/2021 05:29:42 CT, EXTREMITY, LOWER, WITHOUT IV CONTRAST, [id number] 14:21:00Unlisted Reason for Exam - Click Yes and Enter Reason Below->YesUnlisted Reason for Exam->avascular necrosis, medial femoral condyle, right knee [facility] 1970 Sex: FFINAL REPORT TECHNIQUE:Computed tomography imaging of the right lower extremity was performed WITHOUT injected contrast. HISTORY: Preoperative evaluationCOMPARISON:None available. FINDINGS: No acute fracture. Avascular necrosis of the distal femur with subchondral fracturing posteriorly and involving the proximal femur. Surgical findings of prior decompression. The hip and ankle joints are aligned. No soft tissue masses or fluid collections. IMPRESSION: Preoperative CT of the right lower extremity with Nitin protocol. Avascular necrosis of the distal femur andproximal tibia. Signed: Cody Leon Verified Date/Time: 09/01/2021 14:21:30 Reading Location: [facility] Room [address] [place] [address] calcium [id number] 07:56:00 Test Item Value Reference Range Interpretation Comments calcium level (test code = calcium 8.5 mg/dL 8.6-10.0 L level) [facility] in Serum or [id number] 00:00:00 Test Item Value Reference Range Interpretation Comments Urea nitrogen [Mass/volume] in Serum 13 mg/dL 6-20 or Plasma (test code = 3094-0) [facility] [Enzymatic activity/volume] in Serum or [id number] 00:00:00 Test Item Value Reference Range Interpretation Comments creatine kinase (test code = creatine 58 U/L 20-180 kinase) [facility] 2000 [facility] - Serum or Plasma 2021-07-12 08:42:00 Test Item Value Reference Range Interpretation [...] Serum or Plasma (test code = 6768-6) [facility] [Moles/volume] in [id number] 00:00:00 Test Item Value Reference Range Interpretation Comments magnesium level (test code = 2.0 mg/dL 1.6-2.6 magnesium level) [facility]CT, [id number] 09:35:00To investigate for possible anastomotic stricture and small/large bowel crohn's diseaseUnlisted Reason for Exam - Click Yes and Enter Reason Below->NoIs this for enterography?- >YesWill this procedure require oral contrast?->Yes [facility] 1970 Sex: [...] and incidental findings as above. Signed: Leon [facility] Verified Date/Time: 07/07/2021 09:35:01 Reading Location: [facility] Diagnostic Imaging Reading Room - [place] [address] [id number] 05:46:30 Test Item Value Reference Range Interpretation Comments MAGNESIUM (BEAKER) (test code = 1.9 mg/dL 1.6-2.6 627) Cooler Worker ID - WILBUR MBASIC METABOLIC [id number] 05:46:29 Test Item Value Reference Range Interpretation [...] S NOT APPLICABLE FOR DIALYSIS PATIEN TS. Cooler Worker ID - WILBUR MCBC W/PLT COUNT & AUTO [id number] 05:10:15 Test Item Value Reference Range Interpretation [...] PERCENT (BEAKER) (test code = 2801) FECAL [id number] 20:11:55 Test Item Value Reference Range Interpretation Comments FECAL LEUKOCYTES No fecal leukocytes No fecal leukocytes (BEAKER) (test code = seen seen 992) GI PATHOGEN PROFILE BY [id number] 14:51:41 Test Item Value Reference Range Interpretation [...] E. COLI O157 (PCR) (test code = 6533549) SHIGELLA/ENTEROINVASIVE E. COLI Not detected Not detected (EIEC) BY PCR (test code = 20151207) CRYPTOSPORIDIUM (PCR) (test code Not detected Not detected = 20151208) CYCLOSPORA CAYETANENSIS (PCR) Not detected Not detected (test code = 8309653) ENTAMOEBA HISTOLYTICA (PCR) Not detected Not detected (test code = 3971504) GIARDIA LAMBLIA (PCR) (test code Not detected Not detected = 8241654) ADENOVIRUS F 40/41 (PCR) (test Not detected Not detected code = 9634484) ASTROVIRUS (PCR) (test code = Not detected Not detected 20160103) NOROVIRUS GI/GII (PCR) (test Not detected Not detected code = 20160104) ROTAVIRUS A (PCR) (test code = Not detected Not detected 20160105) SAPOVIRUS (I, II, IV, V) BY PCR Not detected Not detected (test code = 2992322) VIBRIO (PARAHAEMOLYTICUS, Not detected Not detected VULNIFICUS) (test code = 4301287) Other viruses, parasites and bacteria not targeted by this PCR panel cannot be excluded; therefore clinical correlation and follow up of serology, culture results, and other molecular studies is required. The results are not intended to be used as the sole means for clinical diagnosis or patient management decisions. This sample was tested at the [facility] Molecular Diagnostics Laboratory using the BaculaArray Gastrointestinal Panel. It is FDA cleared and has been verified and approved by the [facility] Molecular Diagnostics Laboratory for clinical use. This laboratory is CLIA-certified and College ofAmerican Pathologists (CAP)-accredited to perform high complexity testing.C. DIFFICILE GDH [id number] 13:13:04 Test Item Value Reference Range Interpretation Comments CDT TOXIN (test code Negative Negative = 4072756859) CDT GDH ANTIGEN Positive Negative A C. difficile present but (test code = toxin not detec francine. [id number]) Indicates colon ization with non-toxige barber strain or level of tox in below detectable leve ls. No need for enteri c isolation. Darryn atment is rarely needed ( only when strong clinical suspicion for Clostridium difficile infection) Testing performed by AleRipp[employer] Rapid Cassette Assay. For GDH, published sensitivity of the assay is 98.7% compared to cytotoxicity testing. For Toxin AB, published sensitivity is 87.8% and specificity 99.4% compared to cytotoxicity testing.Verification of kit performance was done by the [facility] Microbiology Lab prior to clinical use.[id number] 05:29:55 Test Item Value Reference Range Interpretation Comments MAGNESIUM (BEAKER) (test code = 2.1 mg/dL 1.6-2.6 627) Cooler Worker ID Rose REED WC-REACTIVE [id number] 05:29:55 Test Item Value Reference Range Interpretation Comments C-REACTIVE PROTEIN (BEAKER) (test 0.49 mg/dL 0.00-0.50 code = 676) Cooler Worker ID - DEREK WBASIC METABOLIC [id number] 05:29:54 Test Item Value Reference Range Interpretation [...] S NOT APPLICABLE FOR DIALYSIS PATIEN TS. Cooler Worker ID Rose REED WCBC W/PLT COUNT & AUTO [id number] 04:52:13 Test Item Value Reference Range Interpretation [...] PERCENT (BEAKER) (test code = 2801) SARS-COV2/RT-PCR ([facility])2021-07-05 20:54:21 Test Item Value Reference Range Interpretation Comments SARS-COV2/RT-PCR (test code = Negative Negative 1651251) Negative result for this test determines that [...] Healthcare Providers:https://www.molecular.kwong/gregg/RT SARS-CoV-2 HCP Fact Sheet 51- 951643.pdfFact Sheet for Healthcare Patients:https://www.molecular.kwong/gregg/RT SARS-CoV-2 Patient Fact Sheet EN 51-200311S5.qmnRCRINRKLG1545-51-74 15:30:09 Test Item Value Reference Range Interpretation Comments MAGNESIUM (BEAKER) (test code = 2.2 mg/dL 1.6-2.6 627) Cooler Worker ID - ADMINBASIC METABOLIC [id number] 15:30:08 Test Item Value Reference Range Interpretation [...] S NOT APPLICABLE FOR DIALYSIS PATIEN TS. Cooler Worker ID - ADMINCBC W/PLT COUNT & AUTO [id number] 15:16:06 Test Item Value Reference Range Interpretation [...] PERCENT (BEAKER) (test code = 2801) TISSUE [id number] 13:54:10Surgical Pathology Report Case: [id number] Authorizing Provider: April Mock MD Collected: 07/02/2021 12:46 PM Ordering Location: [facility] Received: 07/02/2021 03:47 PM SERVICES Pathologist: Ly Cortez MD Specimen: Biopsy, Terminal Ileum, yared terminal ileum bx for Crohn's disease activity A. TERMINAL ILEUM, BIOPSY: - ILEAL MUCOSA WITH PRESERVED VILLOUS ARCHITECTURE AND FRAGMENT OF COLONIC MUCOSA - NO SIGNIFICANT HISTOPATHOLOGICAL CHANGE - NO ACTIVE INFLAMMATION, FEATURES OF CHRONIC COLITIS OR GRANULOMA NOTED SJ/pl Signing Pathologist Direct Phone Line: [phone] signed by Ly Cortez MD on 07/05/2021 at 1:54 PMEndoscopic report reviewed. Negative for viral cytopathiceffects or dysplasia. [address] e6Zvbnh's disease of both small and large intestine without complicationA. Biopsy, terminal ileum, neoterminal ileumA. Received in formalin labeled with the patient's name, medical record number and "terminal ileum BX" and consists of pieces of rodriguez-pink soft tissue measuring 0.3 x 0.3 x 0.2 cm and 0.4 x 0.3 x 0.2 cm. The specimen is submitted in toto in A1.Cecelia [facility], Department of Pathology, [address] [place] [address], [id number] Community Hospital, Department of Pathology, [address] [place] [address], KcywlnMadera Community Hospital, Department of Pathology, [address] [place] [address], PXUN-CoV-2 (COVID-19) RNA [Presence] in Respiratory specimen by JULISSA with probe detection 2021-06-29 00:00:00 Test Item Value Reference Range Interpretation Comments SARS-CoV-2 (COVID-19) RNA not detected not detected [Presence] in Respiratory specimen by JULISSA with probe detection (test code = 52889-4) sars-cov-2, JULISSA 2 day tat (test performed code = sars-cov-2, JULISSA 2 day tat) [facility] RNA [Presence] in Respiratory specimen by JULISSA with probe [id number] 00:00:00 Test Item Value Reference Range Interpretation Comments SARS-CoV-2 (COVID-19) RNA not detected not detected [Presence] in Respiratory specimen by JULISSA with probe detection (test code = 60713-6) sars-cov-2, JULISSA 2 day tat (test performed code = sars-cov-2, JULISSA 2 day tat) [facility] W Auto Differential panel - [id number] 01:10:00 Test Item Value Reference Range Interpretation Comments white blood count (test code = 8.6 K/uL 4.0-11.5 white blood count) red blood count (test code = red 4.16 M/uL 3.80-5.20 blood count) hemoglobin (test code = 12.5 g/dL 10.5-15.7 hemoglobin) hematocrit (test code = 40.0 % 34.0-50.0 hematocrit) MCV [Entitic volume] (test code = 96.2 fL 86.0-100.0 88106-4) mean corpuscular hemoglobin (test 30.0 pg 26.2-33.4 [...] 44.4-80.1 leukocytes in Blood (test code = 78986-9) Immature granulocytes [#/volume] 0.03 K/uL 0.00-0.03 in Blood (test code = 07691-6) lymphocyte% (test code = 33.8 % 10.0-50.0 lymphocyte%) mono % (test code = mono %) 5.8 % 3.6-12.0 eos % (test code = eos %) 8.9 % 0.0-5.4 H Basophils/100 leukocytes in 0.6 % 0.1-1.2 Unspecified specimen (test code = 96521-5) Band form neutrophils [#/volume] 4.36 K/uL 1.56-6.13 in Blood (test code = 73120-3) Lymphocytes [#/volume] in 2.91 K/uL 1.18-3.74 Unspecified specimen by Automated count (test code = 34979-1) mono # (test code = mono #) 0.50 K/uL 0.24-0.86 eos # (test code = eos #) 0.77 K/uL 0.04-0.36 H basophil # (test code = basophil 0.05 K/uL 0.01-0.08 #) NRBC% (test code = NRBC%) 0 /100 WBC 0-0.2 NRBC# (test code = NRBC#) 0 K/uL [facility] - Serum or [...] Serum or Plasma (test code = 6768-6) [facility] W Auto Differential panel - [id number] 01:10:00 Test Item Value Reference Range Interpretation Comments white blood count (test code = 8.6 K/uL 4.0-11.5 white blood count) red blood count (test code = red 4.16 M/uL 3.80-5.20 blood count) hemoglobin (test code = 12.5 g/dL 10.5-15.7 hemoglobin) hematocrit (test code = 40.0 % 34.0-50.0 hematocrit) MCV [Entitic volume] (test code = 96.2 fL 86.0-100.0 60736-6) mean corpuscular hemoglobin (test 30.0 pg 26.2-33.4 [...] 44.4-80.1 leukocytes in Blood (test code = 09958-1) Immature granulocytes [#/volume] 0.03 K/uL 0.00-0.03 in Blood (test code = 85087-7) lymphocyte% (test code = 33.8 % 10.0-50.0 lymphocyte%) mono % (test code = mono %) 5.8 % 3.6-12.0 eos % (test code = eos %) 8.9 % 0.0-5.4 H Basophils/100 leukocytes in 0.6 % 0.1-1.2 Specimen (test code = 93564-2) Band form neutrophils [#/volume] 4.36 K/uL 1.56-6.13 in Blood (test code = 57187-6) Lymphocytes [#/volume] in Specimen 2.91 K/uL 1.18-3.74 by Automated count (test code = 83588-0) mono # (test code = mono #) 0.50 K/uL 0.24-0.86 eos # (test code = eos #) 0.77 K/uL 0.04-0.36 H basophil # (test code = basophil 0.05 K/uL 0.01-0.08 #) NRBC% (test code = NRBC%) 0 /100 WBC 0-0.2 NRBC# (test code = NRBC#) 0 K/uL [facility] - Serum or [...] Serum or Plasma (test code = 6768-6) [facility] and Rh [id number] 16:26:00 Test Item Value Reference Range Interpretation Comments ABO grouping (test code = 883-9) A Rh type (test code = 34185-6) POS [facility] and Rh nouyevemqpov7580-07-80 16:26:00 Test Item Value Reference Range Interpretation Comments ABO grouping (test code = 883-9) A Rh type (test code = 14712-8) POS [facility] and Rh [id number] 16:26:00 Test Item Value Reference Range Interpretation Comments ABO grouping (test code = 883-9) A Rh type (test code = 77503-5) POS [facility] and Rh [id number] 16:26:00 Test Item Value Reference Range Interpretation Comments ABO grouping (test code = 883-9) A Rh type (test code = 98180-0) [facility] [id number] 15:29:03 Test Item Value Reference Range Interpretation Comments POC glucose (test 78 mg/dL 65-99 Cooler Worker N kaitlyn: Barsales code = 77044-2) ThelmaDevice ID: [id number] [facility] [id number] 15:29:03 Test Item Value Reference Range Interpretation Comments POC glucose (test 78 mg/dL 65-99 Cooler Worker N kaitlyn: Barsales code = 96089-4) ThelmaDevice ID: [id number] [facility] [id number] 15:29:03 Test Item Value Reference Range Interpretation Comments POC glucose (test 78 mg/dL 65-99 Cooler Worker N kaitlyn: Barsales code = 71684-6) ThelmaDevice ID: [id number] [facility] [id number] 15:29:03 Test Item Value Reference Range Interpretation Comments POC glucose (test 78 mg/dL 65-99 Cooler Worker N kaitlyn: Barsales code = 62276-7) ThelmaDevice ID: [id number] [facility] RNA [Presence] in Respiratory specimen by JULISSA with probe [id number] 05:00:23 Test Item Value Reference Range Interpretation Comments SARS-CoV-2 (COVID-19) RNA Not detected Not-Detected [Presence] in Respiratory specimen by JULISSA with probe detection (test code = 90566-5) ECG Pre/Post [id number] 22:21:44 Test Item Value Reference Range Interpretation Comments Ventricular rate (test code = 253) Atrial rate (test code = 255) IN interval (test code = 266) QRSD interval [...] Beaulieu MD (2019) on 05/06/2021 4:21:[address] [facility] Pre/Post [id number] 22:21:44 Test Item Value Reference Range Interpretation Comments Ventricular rate (test code = 253) Atrial rate (test code = 255) IN interval (test code = 266) QRSD interval [...] Beaulieu MD (2019) on 05/06/2021 4:21:[address] [facility] Pre/Post [id number] 22:21:44 Test Item Value Reference Range Interpretation Comments Ventricular rate (test code = 253) Atrial rate (test code = 255) IN interval (test code = 266) QRSD interval [...] Beaulieu MD (2019) on 05/06/2021 4:21:[address] [facility] Pre/Post [id number] 22:21:44 Test Item Value Reference Range Interpretation Comments Ventricular rate (test code = 253) Atrial rate (test code = 255) IN interval (test code = 266) QRSD interval [...] Yash Gutierrez (2019) on 05/06/2021 4:21:39 PM [facility] and [id number] 19:32:00 Test Item Value Reference Range Interpretation Comments ABO grouping (test code = 883-9) A Rh type (test code = 56063-1) POS Antibody screen (gel) (test code = NEG 890-4) [facility] and [id number] 19:32:00 Test Item Value Reference Range Interpretation Comments ABO grouping (test code = 883-9) A Rh type (test code = 34806-3) POS Antibody screen (gel) (test code = NEG 890-4) [facility] and [id number] 19:32:00 Test Item Value Reference Range Interpretation Comments ABO grouping (test code = 883-9) A Rh type (test code = 84065-2) POS Antibody screen (gel) (test code = NEG 890-4) [facility] and [id number] 19:32:00 Test Item Value Reference Range Interpretation Comments ABO grouping (test code = 883-9) A Rh type (test code = 88462-5) POS Antibody screen (gel) (test code = NEG 890-4) [facility]TREMITY, LOWER, JOINT, WITHOUT IV CONTRAST, RIGHT 2021-05-04 09:55:00Unlisted Reason for Exam - Click Yes and Enter Reason Below- >YesUnlisted Reason for Exam->avascular necrosis [facility] : [...] Bermeo Verified Date/Time: 05/04/2021 09:55:28 Reading Location: [facility] Room [address] [place] [address] , NON-TUNNELED CATH/PICC >5 Y.O. WITH [id number] 13:44:00Reason for Exam:->home iv antibiotics [facility] 1970 Sex: FFINAL REPORT Right upper extremity PICC insertion. History: Need for long-term IV antibiotics. Government Instructor: Dayne Gaines MD. Aerial Planting And Cultivation Manager: None. Modality: Sonography and fluoroscopy. Sedation: None. [...] needle into the right atrium. A 5 Haitian peel-away sheath was placed. The 5 Haitian double-lumen PICC line was measured and cut [...] MDReport Verified Date/Time: 05/03/2021 13:44:35 Reading Location: [place] [id number] [facility] Reading Room UZ-DfZ-3 (COVID-19) RNA [Presence] in Respiratory specimen by JULISSA with probe detection 2021-04-28 03:30:1867428-6Hpkrmogew Medical GroupCOMPREHENSIVE METABOLIC PANEL 2021-01-20 14:28:17 Test Item Value Reference Range Interpretation Comments GLUCOSE (test code = See_Comment [Autom ated message] The 2345-7) system which Specpage nerated this result tra nsmitted reference range [...] [Au tomated message] The 2160-0) system which Specpage nerated this result tra nsmitted reference range : 0.60 - 1.30 MG/DL. The reference range was not used to interpr et this result as normal/abnormal . EGFR AA (test code = See_Comment [Autom ated message] The 40134-1) system which Specpage nerated this result tra nsmitted reference range : >60 ML/MIN/1.73. Th e reference range was not used to interpr et this result as normal/abnormal . EGFR (test code = See_Comment [Automate d message] The 90021-9) system which ge nerated this result tra [...] code = See_Comment [Automa francine message] The 295-) system which ge nerated this result tra [...] code = See_Comment [Autom ated message] The 59122-6) system which ge nerated this result tra [...] code = See_Comment [Autom ated message] The 75354-6) system which ge nerated this result tra nsmitted reference range : 3.5 - 5.2 G/DL. The r eference range was not u sed to interpret this result as normal/abnormal . GLOBULINS, SERUM, TOTAL See_Comment [Au tomated message] The (test code = 87425-4) system which generated this result tra nsmitted reference range : 1.9 - 3.7 G/DL. The r eference range was not u sed to interpret this result as normal/abnormal . A/G RATIO (test code = See_Comment [Aut omated message] The 175-0) system which ge nerated this result tra [...] Perform ed At: [facility], [address] [place] [address] Central Sterilization Technician: Tamika King [id number] [employer] Accreditation N o. [id number] [facility] HospitalCOMPREHENSIVE [facility]OL[facility] [id number] 14:28:17 Test Item Value Reference Range Interpretation [...] code = See_Comment [Au tomated message] The 2160) system which ge nerated this result tra nsmitted reference range : 0.60 - 1.30 MG/DL. The reference range was not used to interpr et this result as normal/abnormal . EGFR AA (test code = See_Comment [Autom ated message] The 83687-3) system which ge nerated this result tra nsmitted reference range : >60 ML/MIN/1.73. Th e reference range was not used to interpr et this result as normal/abnormal . EGFR (test code = See_Comment [Automate d message] The 53161-9) system which ge nerated this result tra [...] code = See_Comment [Aut omated message] The 2823-3) system which ge nerated this result tra [...] code = See_Comment [Autom ated message] The 00793-4) system which ge nerated this result tra [...] code = See_Comment [Autom ated message] The 71418-9) system which ge nerated this result tra nsmitted reference range : 3.5 - 5.2 G/DL. The r eference range was not u sed to interpret this result as normal/abnormal . GLOBULINS, SERUM, TOTAL See_Comment [Au tomated message] The (test code = 67025-2) system which generated this result tra nsmitted [...] Perform ed At: [facility], [address] [place] [address] Central Sterilization Technician: Tamika King [id number] [employer] Accreditation N o. [id number] [facility] HospitalURINAL[facility]IS AUTO W/[id number] 12:27:01 Test Item Value Reference Range Interpretation Comments COLOR UA (test code = DARK YELLOW YELLOW-STRAW A 5778-6) CLARITY UA (test code CLEAR CLEAR = 5767-9) SPECIFIC GRAVITY UA (NOTE) 1.005-1.035 UNABLE (test code = 5811-5) TO DETE RMINE RESULT DUE TO INTERFERENCE FR OM URINE PIGMENT. WBC UA (test code = 0-5 See_Comment [Automa francine message] 43391-0) The system [employer] generated this result transmit francine reference range : 0 - 5 /HPF. The reference range was not used to interpret this result as normal/abnormal . RBC UA (test code = 3-5 See_Comment [Automa francine message] 21090-5) The system [employer] generated this result transmit francine reference range : 0 - 5 /HPF. The reference range was not used to interpret this result as normal/abnormal . EPITHELIAL CELLS (test 0-5 See_Comment [Aut omated message] code = 95384-4) The system [employer] generated this result transmit francine reference range : 0 - 10 /HPF. The reference range was not used to interpret this result as normal/abnormal . BACTERIA (test code = NONE SEEN NONE SEEN 90877-8) CRYSTALS (test code = PRESENT NONE SEEN A 5782-8) CALCIUM OX ALATE CRYSTALS HYALINE CASTS (test NONE SEEN NONE-TRACE Unless code = 60265-5) Otherwise In dicated, All Testing Performed At: Clinical Pathol ogy [facility], [address] [place] [address] Laboratory Dire ctor: Parish espinosa M.D. Cecilio A Number [id number] [place] [id number] Lab Interpretation Abnormal (test code = 07147-0) [id number] 12:27:01 Test Item Value Reference Range Interpretation Comments COLOR UA (test code = DARK YELLOW YELLOW-STRAW A 5778-6) CLARITY UA (test code CLEAR CLEAR = 5767-9) SPECIFIC GRAVITY UA (NOTE) 1.005-1.035 UNABLE (test code = 5811-5) TO DETE RMINE RESULT DUE TO INTERFERENCE FR OM URINE PIGMENT. WBC UA (test code = 0-5 See_Comment [Automa francine message] 32528-0) The system [employer] generated this result transmit francine reference range : 0 - 5 /HPF. The reference range was not used to interpret this result as normal/abnormal . RBC UA (test code = 3-5 See_Comment [Automa francine message] 08339-1) The system [employer] generated this result transmit francine reference range : 0 - 5 /HPF. The reference range was not used to interpret this result as normal/abnormal . EPITHELIAL CELLS (test 0-5 See_Comment [Aut omated message] code = 95171-0) The system [employer] [facility] generated this result transmit francine reference range : 0 - 10 /HPF. The reference range was not used to interpret this result as normal/abnormal . BACTERIA (test code = NONE SEEN NONE SEEN 34673-6) CRYSTALS (test code = PRESENT NONE SEEN A 5782-8) CALCIUM OX ALATE CRYSTALS HYALINE CASTS (test NONE SEEN NONE-TRACE Unless code = 97213-0) Otherwise In dicated, All Testing Performed At: Clinical Pathol [facility], [address] [place] [address] Laboratory Dire ctor: Parish espinosa M.D. CLI A Number [id number] [place] [id number] Lab Interpretation Abnormal (test code = 54612-6) [facility] W/AUTO DIFF WITH [id number] 09:34:22 Test Item Value Reference Range Interpretation Comments WHITE BLOOD CELL COUNT See_Comment [Aut omated message] (test code = 59137-5) The sy stem which generated this result transmitted ref erence range: 3.5 - 11 .0 K/UL. The reference r markus was not used to int erpret this result as normal/abnormal . RED BLOOD CELL COUNT See_Comment [Autom ated message] (test code = 71690-6) The sy stem which generated this result transmitted ref erence range: 3.80 - 5 .40 M/UL. The refer ence range was not u sed to interpret this result as normal/abnor mal. HEMOGLOBIN (test code = See_Comment [Au tomated message] 718-7) The system [employer] generated this result transmitted ref erence range: 11.5 - 1 5.5 G/DL. The refer ence range was not u sed to interpret this result as normal/abnor mal. HEMATOCRIT (test code = 42.0 % 34.0-45.0 36379-4) MEAN CORPUSCULAR VOLUME 94.8 fL 80.0-99.0 (test code = 39000-0) MEAN CORPUSCULAR 31.4 PG 25.0-33.0 HEMOGLOBIN (test code = 38240-5) MEAN CORPUSCULAR See_Comment [Automated message] HEMOGLOBIN CONC (test The sy stem which code = 88153-9) generated th is result transmitted ref erence range: 31 - 36 G/DL. The reference r markus was not used to int erpret this result as normal/abnormal . RED CELL DISTRIBUTION 11.8 % 11.5-15.0 WIDTH (test code = 85843-6) NEUTROPHILS % (test 66.2 % 40.0-75.0 code = 19990-5) LYMPHOCYTES % (test 25.8 % 20.0-45.0 code = 46679-1) MONOCYTES % (test code 5.6 % 4.0-12.0 = 70408-1) EOSINOPHILS % (test 1.9 % 0.0-7.0 code = 01855-9) BASOPHILS % (test code 0.3 % 0.0-2.0 = 33759-0) IMMATURE GRANULOCYTES 0.2 % 0.0-1.0 (test code = 12434-8) NUCLEATED RBC'S See_Comment Unl ess MYELOPEROX STAIN (test Other cuevas Indicated, code = 42895-3) All Testing Performed At: [facility], [address] [place] [address] Laboratory Dire ctor: Parish espinosa M.D. CLIA Numb er [id number] [place]. [id number] [Auto mated message] The sy stem which generated this result transmit francine reference range : 0.00 - 0.11 K/UL. The reference range was not used to interpr et this result as normal/abnormal . PLATELET COUNT (test See_Comment [Autom ated message] code = 85802-7) The system w [facility] generated this result transmitted ref erence range: 130 - 40 0 K/UL. The reference r markus was not used to int erpret this result as normal/abnormal . NEUTROPHILS ABSOLUTE See_Comment [Autom ated message] COUNT (test code = The syste m which 56545-9) generated this result transmitted ref erence range: 1.50 - 7 .50 K/UL. The refer ence range was not u sed to interpret this result as normal/abnor mal. LYMPHOCYTES ABSOLUTE See_Comment [Autom ated message] COUNT (test code = The syste m which 58568-0) generated this result transmitted ref erence range: 1.00 - 4 .00 K/UL. The refer ence range was not u sed to interpret this result as normal/abnor mal. MONOCYTES ABSOLUTE See_Comment [Automat ed message] COUNT (test code = The syste m which 36464-8) generated this result transmitted ref erence range: 0.20 - 1 .00 K/UL. The refer ence range was not u sed to interpret this result as normal/abnor mal. BASOPHILS ABSOLUTE See_Comment [Automat ed message] COUNT (test code = The syste m which 03363-3) generated this result transmitted ref erence range: [...] to interpret this result as normal/abnor mal. [facility] W/AUTO DIFF WITH [id number] 09:34:22 Test Item Value Reference Range Interpretation Comments WHITE BLOOD CELL COUNT See_Comment [Aut omated message] (test code = 81113-0) The sy stem which generated this result transmitted ref erence range: 3.5 - 11 .0 K/UL. The reference r markus was not used to int erpret this result as normal/abnormal . RED BLOOD CELL COUNT See_Comment [Autom ated message] (test code = 71841-0) The sy stem which generated this result [...] HEMATOCRIT (test code = 42.0 % 34.0-45.0 38861-7) MEAN CORPUSCULAR VOLUME 94.8 fL 80.0-99.0 (test code = 15275-3) MEAN CORPUSCULAR 31.4 PG 25.0-33.0 HEMOGLOBIN (test code = 37215-6) MEAN CORPUSCULAR See_Comment [Automated message] HEMOGLOBIN CONC (test The sy stem which code = 29079-5) generated th is result transmitted ref erence range: 31 - 36 G/DL. The reference r markus was not used to int erpret this result as normal/abnormal . RED CELL DISTRIBUTION 11.8 % 11.5-15.0 WIDTH (test code = 01090-9) NEUTROPHILS % (test 66.2 % 40.0-75.0 code = 08884-9) LYMPHOCYTES % (test 25.8 % 20.0-45.0 code = 53841-1) MONOCYTES % (test code 5.6 % 4.0-12.0 = 73454-4) EOSINOPHILS % (test 1.9 % 0.0-7.0 code = 91637-3) BASOPHILS % (test code 0.3 % 0.0-2.0 = 04121-5) IMMATURE GRANULOCYTES 0.2 % 0.0-1.0 (test code = 40056-8) NUCLEATED RBC'S See_Comment Unl ess MYELOPEROX STAIN (test Other cuevas Indicated, code = 32411-1) All Testing Performed At: [facility], [address] [place] [address], [place] [address] Laboratory Dire ctor: Parish espinosa M.D. CLIA Numb er [id number] [place]. [id number] [Auto mated message] The sy stem which generated this result transmit francine reference range : 0.00 - 0.11 K/UL. The reference range was not used to interpr et this result as normal/abnormal . PLATELET COUNT (test See_Comment [Autom ated message] code = 51151-7) The system w hich generated this result transmitted ref erence range: 130 - 40 0 K/UL. The reference r markus was not used to int erpret this result as normal/abnormal . NEUTROPHILS ABSOLUTE See_Comment [Autom ated message] COUNT (test code = The syste m which 57678-5) generated this result transmitted ref erence range: 1.50 - 7 .50 K/UL. The refer ence range was not u sed to interpret this result as normal/abnor mal. LYMPHOCYTES ABSOLUTE See_Comment [Autom ated message] COUNT (test code = The syste m which 18782-3) generated this result transmitted ref erence range: 1.00 - 4 .00 K/UL. The refer ence range was not u sed to interpret this result as normal/abnor mal. MONOCYTES ABSOLUTE See_Comment [Automat ed message] COUNT (test code = The syste m which 34625-1) generated this result transmitted ref erence range: 0.20 - 1 .00 K/UL. The refer ence range was not u sed to interpret this result as normal/abnor mal. BASOPHILS ABSOLUTE See_Comment [Automat ed message] COUNT (test code = The syste m which 45307-6) generated this result transmitted ref erence range: [...] to interpret this result as normal/abnor mal. [facility]Bacteria identified in Urine by [id number] 12:05:00[facility], [id number] 12:05:00 Test Item Value Reference Range Interpretation [...] Minimum inhibitory concentration (VIVIENNE) (test code = 11361-5) cefTAZidime [Susceptibility] by <=2 Minimum inhibitory concentration (VIVIENNE) (test code = 133-9) cefTRIAXone [Susceptibility] by <=1 Minimum inhibitory concentration (VIVIENNE) (test code = 141-2) Ciprofloxacin [Susceptibility] by >2 Minimum inhibitory concentration (VIVIENNE) (test code = 185-9) Ampicillin+Sulbactam =16/8 [Susceptibility] by Minimum inhibitory concentration (VIVIENNE) (test code = 32-3) Ertapenem [Susceptibility] by <=0.25 Minimum inhibitory concentration (VIVIENNE) (test code = 27001-3) Aztreonam [Susceptibility] by <=2 Minimum inhibitory concentration (VIVIENNE) (test code = 44-8) Cefepime [Susceptibility] by <=1 Minimum inhibitory concentration (VIVIENNE) (test code = 6644-9) Meropenem [Susceptibility] by <=0.5 Minimum inhibitory concentration (VIVIENNE) (test code = 6652-2) Moxifloxacin [Susceptibility] by >4 Minimum inhibitory concentration (VIVIENNE) (test code = 09506-6) Amikacin [Susceptibility] by <=8 Minimum inhibitory concentration (VIVIENNE) (test code = 12-5) Piperacillin+Tazobactam =64/4 [Susceptibility] by Minimum inhibitory concentration (VIVIENNE) (test code = 412-7) Ceftaroline [Susceptibility] by 0.5 ug/mL Minimum inhibitory concentration (VIVIENNE) (test code = 34006-5) Tigecycline [Susceptibility] by <=1 Minimum inhibitory concentration (VIVIENNE) (test code = 49244-8) [facility]dipstick) panel - [id number] 14:46:00 Test Item Value Reference Range Interpretation Comments Leukocytes (test code = Leukocytes) Large Nitrite (test code = Nitrite) positive Urobilinogen (test code = 8 Urobilinogen) Protein (test code = Protein) 100 pH (test code = pH) 7.0 Blood (test code = Blood) Negative Specific [place] (test code = 1.020 Specific [place]) Ketone (test code = Ketone) Small Bilirubin (test code = Bilirubin) Moderate Glucose (test code = Glucose) 250 Appearance (test code = Appearance) Turbid Color (test code = Color) Red [facility] identified in Urine by [id number] 06:29:00[facility]acteria [facility], [id number] 06:29:00 Test Item Value Reference Range Interpretation [...] Minimum inhibitory concentration (VIVIENNE) (test code = 25042-3) Ciprofloxacin [Susceptibility] by <1 Minimum inhibitory concentration (VIVIENNE) (test code = 185-9) Linezolid [Susceptibility] by Minimum <2 inhibitory concentration (VIVIENNE) (test code = 23967-8) DAPTOmycin [Susceptibility] by <1 Minimum inhibitory concentration (VIVIENNE) (test code = 66779-5) [facility] (dipstick) panel - [id number] 15:20:00 Test Item Value Reference Range Interpretation Comments Leukocytes (test code = Leukocytes) Negative Nitrite (test code = Nitrite) positive Urobilinogen (test code = 1 Urobilinogen) Protein (test code = Protein) Trace pH (test code = pH) 7.0 Blood (test code = Blood) Negative Specific [place] (test code = 1.015 Specific [place]) Ketone (test code = Ketone) Negative Bilirubin (test code = Bilirubin) Small Glucose (test code = Glucose) 100 Appearance (test code = Appearance) Cloudy Color (test code = Color) Yellow [facility] (dipstick) panel - [id number] 12:11:00 Test Item Value Reference Range Interpretation Comments Leukocytes (test code = Leukocytes) Large Nitrite (test code = Nitrite) positive Urobilinogen (test code = 2 Urobilinogen) Protein (test code = Protein) 30 pH (test code = pH) 6.0 Blood (test code = Blood) Negative Specific [place] (test code = 1.010 Specific [place]) Ketone (test code = Ketone) Trace Bilirubin (test code = Bilirubin) Small Glucose (test code = Glucose) 100 Appearance (test code = Appearance) Cloudy Color (test code = Color) Organ [facility]Ur[facility]ysis macro (dipstick) panel - [id number] 12:11:00 Test Item Value Reference Range Interpretation Comments Leukocytes (test code = Leukocytes) Large Nitrite (test code = Nitrite) positive Urobilinogen (test code = 2 Urobilinogen) Protein (test code = Protein) 30 pH (test code = pH) 6.0 Blood (test code = Blood) Negative Specific [place] (test code = 1.010 Specific [place]) Ketone (test code = Ketone) Trace Bilirubin (test code = Bilirubin) Small Glucose (test code = Glucose) 100 Appearance (test code = Appearance) Cloudy Color (test code = Color) Organ [facility]Ur[facility]ysis macro (dipstick) panel - [id number] 12:11:00 Test Item Value Reference Range Interpretation Comments Leukocytes (test code = Leukocytes) Large Nitrite (test code = Nitrite) positive Urobilinogen (test code = 2 Urobilinogen) Protein (test code = Protein) 30 pH (test code = pH) 6.0 Blood (test code = Blood) Negative Specific [place] (test code = 1.010 Specific [place]) Ketone (test code = Ketone) Trace Bilirubin (test code = Bilirubin) Small Glucose (test code = Glucose) 100 Appearance (test code = Appearance) Cloudy Color (test code = Color) Organ [facility]Bacteria identified in Urine by [id number] 10:44:00 Test Item Value Reference Range Interpretation Comments Bacteria identified in no growth at 2 days Urine by Culture (test code = 630-4) [facility] HospitalMR, PELVIS, WITHOUT / WITH IV [id number] 10:43:00 Please order enterography protocol to assess the small bowel for Crohn's diseaseMRI ENTEROGRAPHY (SMALL BOWEL EVALUATION)Unlisted Reason for Exam - Click Yes and Enter Reason Below->YesUnlisted Reason for Exam->Crohn's disease of both small and large intestine without complication (HCCode) (K50.80) [facility] CENTERName: LAURA DEL TORO : [...] MDReport Verified Date/Time: 11/23/2020 10:43:40 Reading Location: [facility] Diagnostic Imaging Reading Room - [place] [address] MR, ABDOMEN, WITHOUT / WITH IV CONTRAST 2020-11-23 10:43:00Please order enterography protocol to assess the small bowel for Crohn's diseaseMRI ENTEROGRAPHY (SMALL BOWEL EVALUATION)Unlisted Reason for Exam - Click Yes and Enter Reason Below->YesUnlisted Reason for Exam- >Crohn's disease of both small and large intestine without complication (HCCode) (K50.80)[facility] 1970 Sex: [...] MDReport Verified Date/Time: 11/23/2020 10:43:40 Reading Location: [facility] Diagnostic Imaging Reading Room - [place] [address] Urinalysis macro (dipstick) panel - Urine 2020-11-17 14:29:00 Test Item Value Reference Range Interpretation Comments Leukocytes (test code = Negative Leukocytes) Nitrite (test code = Nitrite) positive Urobilinogen (test code = .2 Urobilinogen) Protein (test code = Protein) Negative pH (test code = pH) 7.0 Blood (test code = Blood) Negative Specific [place] (test code = 1.025 Specific [place]) Ketone (test code = Ketone) Negative Bilirubin (test code = Bilirubin) Negative Glucose (test code = Glucose) Negative Appearance (test code = Cloudy Appearance) Color (test code = Color) Dark Yellow [facility] (dipstick) panel - [id number] 14:29:00 Test Item Value Reference Range Interpretation Comments Leukocytes (test code = Negative Leukocytes) Nitrite (test code = Nitrite) positive Urobilinogen (test code = .2 Urobilinogen) Protein (test code = Protein) Negative pH (test code = pH) 7.0 Blood (test code = Blood) Negative Specific [place] (test code = 1.025 Specific [place]) Ketone (test code = Ketone) Negative Bilirubin (test code = Bilirubin) Negative Glucose (test code = Glucose) Negative Appearance (test code = Cloudy Appearance) Color (test code = Color) Dark Yellow [facility] GroupUrinalysis macro (dipstick) panel - [id number] 14:29:00 Test Item Value Reference Range Interpretation Comments Leukocytes (test code = Negative Leukocytes) Nitrite (test code = Nitrite) positive Urobilinogen (test code = .2 Urobilinogen) Protein (test code = Protein) Negative pH (test code = pH) 7.0 Blood (test code = Blood) Negative Specific [place] (test code = 1.025 Specific [place]) Ketone (test code = Ketone) Negative Bilirubin (test code = Bilirubin) Negative Glucose (test code = Glucose) Negative Appearance (test code = Cloudy Appearance) Color (test code = Color) Dark Yellow [facility] GroupBacteria identified in Urine by [id number] 12:21:00Bacteria Ur [facility] GroupBacteria identified in Urine by [id number] 12:21:00Bacteria Ur [facility] GroupBacteria identified in Urine by [id number] 12:21:00Bacteria Ur [facility] GroupUrinalysis macro (dipstick) panel - [id number] 14:00:55 Test Item Value Reference Range Interpretation Comments Leukocytes (test code = Leukocytes) Negative Nitrite (test code = Nitrite) positive Urobilinogen (test code = .2 Urobilinogen) Protein (test code = Protein) 30 pH (test code = pH) 6.0 Blood (test code = Blood) Negative Specific [place] (test code = 1.020 Specific [place]) Ketone (test code = Ketone) Trace Bilirubin (test code = Bilirubin) Small Glucose (test code = Glucose) 100 Appearance (test code = Appearance) Turbid Color (test code = Color) Organ [facility]Urinalysis macro (dipstick) panel - [id number] 14:00:55 Test Item Value Reference Range Interpretation Comments Leukocytes (test code = Leukocytes) Negative Nitrite (test code = Nitrite) positive Urobilinogen (test code = .2 Urobilinogen) Protein (test code = Protein) 30 pH (test code = pH) 6.0 Blood (test code = Blood) Negative Specific [place] (test code = 1.020 Specific [place]) Ketone (test code = Ketone) Trace Bilirubin (test code = Bilirubin) Small Glucose (test code = Glucose) 100 Appearance (test code = Appearance) Turbid Color (test code = Color) Organ [facility] [id number] 10:40:00 Test Item Value Reference Range Interpretation Comments Coronavirus (COVID-19) Not Detected (08/03/20 JULISSA (test code = 5:40 AM) Coronavirus (COVID-19) JULISSA) [facility] VersionEye [id number] 10:32:00 Test Item Value Reference Range Interpretation Comments quest collection (test code = quest quest collection) [facility] HospitalUsherBuddy [id number] 10:32:00 Test Item Value Reference Range Interpretation Comments quest collection (test code = quest quest collection) [facility] HospitalInfogile Technologies [id number] 17:04:00 Test Item Value Reference Range Interpretation Comments ABO/Rh (test code = ABO/Rh) A POS [facility] [id number] 17:04:00 Test Item Value Reference Range Interpretation Comments Antibody Scrn (test Negative (05/11/20 code = Antibody Scrn) 11:04 AM) [facility] ([facility]OVID-19) Ag [Presence] in Respiratory specimen by Rapid [id number] 12:34:00 Test Item Value Reference Range Interpretation Comments SARS-CoV - 2 (test code = SARS-CoV - negative 2) [facility] HospitalUrinalysis macro (dipstick) panel - [id number] 11:41:00 Test Item Value Reference Range Interpretation Comments Leukocytes (test code = Leukocytes) Negative Nitrite (test code = Nitrite) negative Urobilinogen (test code = 1 Urobilinogen) Protein (test code = Protein) Negative pH (test code = pH) 7.0 Blood (test code = Blood) Negative Specific [place] (test code = 1.025 Specific [place]) Ketone (test code = Ketone) Negative Bilirubin (test code = Bilirubin) Small Glucose (test code = Glucose) Negative Appearance (test code = Appearance) Cloudy Color (test code = Color) Yellow [facility] HospitalUrinalysis macro (dipstick) panel - [id number] 11:41:00 Test Item Value Reference Range Interpretation Comments Leukocytes (test code = Leukocytes) Negative Nitrite (test code = Nitrite) negative Urobilinogen (test code = 1 Urobilinogen) Protein (test code = Protein) Negative pH (test code = pH) 7.0 Blood (test code = Blood) Negative Specific [place] (test code = 1.025 Specific [place]) Ketone (test code = Ketone) Negative Bilirubin (test code = Bilirubin) Small Glucose (test code = Glucose) Negative Appearance (test code = Appearance) Cloudy Color (test code = Color) Yellow [facility] HospitalHemoglobin A1c [Mass/volume] in [id number] 11:30:00 Test Item Value Reference Range Interpretation Comments Hemoglobin A1c [Mass/volume] in Blood 5.8 % 4.0-6.0 (test code = 02799-9) [facility] HospitalComprehensive metabolic 2000 panel - Serum or [...] Serum or Plasma (test code = 6768-6) [facility] GroupMagnesium [Moles/volume] in Unspecified specimen 2020-05-04 11:30:00 Test Item Value Reference Range Interpretation Comments magnesium level (test code = 2.1 mg/dL 1.6-2.6 magnesium level) [facility] GroupCreatine kinase [Enzymatic activity/volume] in Serum or [id number] 11:30:00 Test Item Value Reference Range Interpretation Comments creatine kinase (test code = creatine 49 U/L 20-180 kinase) [facility] HospitalPT/[id number] 11:30:00 Test Item Value Reference Range Interpretation Comments prothrombin time (test code = 9.9 seconds 10.3-12.3 L prothrombin time) INR in Blood by Coagulation assay 0.92 (test code = 04966-9) [facility] Hospitalpartial thromboplastin [id number] 11:30:00 Test Item Value Reference Range Interpretation Comments INR in Blood by Coagulation 27.1 seconds 22.5-37.0 assay (test code = 24696-3) [facility] HospitalUrinalysis complete W Reflex Culture panel - Urine 2020-05-04 11:30:00 Test Item Value Reference Range Interpretation Comments Color of Urine by Auto (test dark yellow code = 31470-1) Appearance of Urine (test code clear clear = 5767-9) Glucose [Presence] in Urine by negative negative Automated test strip (test code = 34871-0) Bilirubin.total [Mass/volume] negative negative in Urine (test code = 1978-6) Ketones [Mass/volume] in Urine negative negative by Automated test strip (test code = 12437-0) Specific gravity of Urine by 1.025 1.003-1.030 Automated test strip (test code = 01770-3) blood urine (test code = blood negative negative urine) pH of Urine (test code = 7.500 5-9 2756-5) protein urine (UA) (test code = trace negative protein urine (UA)) Urobilinogen [Presence] in =2.0 0.2-1.0 H Urine (test code = 64010-1) Nitrite [Presence] in Urine by negative negative Test strip (test code = 5802-4) Leukocyte esterase [Presence] negative negative in Urine by Automated test strip (test code = 57918-6) Erythrocytes [#/volume] in =1-5 0-5 Urine by Automated count (test code = 798-9) Leukocytes [#/area] in Urine <1 0-5 sediment by Automated count (test code = 29223-0) Epithelial cells [Presence] in =6-10 0-5 Urine sediment by Light microscopy (test code = 48171-9) Bacteria identified in Urine by none detected none detect Culture (test code = 630-4) Casts [#/area] in Urine =2-5 none detect sediment by Automated count (test code = 23543-9) urine culture added? (test code no = urine culture added?) [facility]in [Units/volume] in Serum or [id number] 11:30:00 Test Item Value Reference Range Interpretation Comments Thyrotropin [Units/volume] in 4.22 uIU/mL 0.36-3.74 H Serum or Plasma (test code = 3016-3) [facility]Thyroxine (T4) free [Mass/volume] in Serum or Plasma 2020-05-04 11:30:00 Test Item Value Reference Range Interpretation Comments free T4 (test code = free T4) 1.27 NG/dL 0.93-1.7 [facility]Triiodothyronine (T3) Free [Mass/volume] in Serum or [id number] 11:30:00 Test Item Value Reference Range Interpretation Comments free T3 (test code = free T3) 2.89 pg/mL 2.0-4.4 [facility] W Auto Differential panel - [id number] 11:30:00 Test Item Value Reference Range Interpretation Comments white blood count (test code = 5.9 K/uL 4.0-11.5 white blood count) red blood count (test code = red 4.02 M/uL 3.80-5.20 blood count) hemoglobin (test code = 12.8 g/dL 10.5-15.7 hemoglobin) hematocrit (test code = 40.4 % 34.0-50.0 hematocrit) MCV [Entitic volume] (test code = 100.5 fL 86-100 H 61319-2) mean corpuscular hemoglobin (test 31.8 pg 26.2-33.4 [...] 44.4-80.1 leukocytes in Blood (test code = 81854-7) Immature granulocytes [#/volume] 0.0 K/uL 0.0-0.03 in Blood (test code = 52773-5) lymphocyte% (test code = 35.9 % 10.0-50.0 lymphocyte%) mono % (test code = mono %) 4.7 % 3.6-12.0 eos % (test code = eos %) 2.2 % 0.0-5.4 Basophils/100 leukocytes in 0.5 % 0.1-1.2 Unspecified specimen (test code = 60832-8) Band form neutrophils [#/volume] 3.35 K/uL 1.56-6.13 in Blood (test code = 40360-8) Lymphocytes [#/volume] in 2.1 K/uL 1.18-3.74 Unspecified specimen by Automated count (test code = 27986-4) mono # (test code = mono #) 0.28 K/uL 0.24-0.86 eos # (test code = eos #) 0.13 K/uL 0.04-0.36 basophil # (test code = basophil 0.03 K/uL 0.01-0.08 #) NRBC% (test code = NRBC%) 0 /100 WBC 0-0.2 NRBC# (test code = NRBC#) 0 K/uL [facility] HospitalDifferential panel, method unspecified - [id number] 11:30:00NeutrophilsBandLymphocyteAtypical LymphMonocyteEosinophilBasophilMetamyelocyteAbs Neutrophil Count (Man)Abs Lymph Count (Man)Abs Monocyte Count (Man)Abs Eosinophil Count (Man)Abs Basophil Count (Man)Platelet EstimateMataTurning Point Mature Adult Care UnitHemoglobin A1c/Hemoglobin.total in [id number] 11:30:00 Test Item Value Reference Range Interpretation Comments Hemoglobin A1c [Mass/volume] in Blood 5.8 % 4.0-6.0 (test code = 70157-1) [facility] HospitalCom[facility] 2000 panel - Serum or [...] [facility] GroupMagnesium [Moles/volume] in Unspecified specimen 2020-05-04 11:30:00 Test Item Value Reference Range Interpretation Comments magnesium level (test code = 2.1 mg/dL 1.6-2.6 magnesium level) [facility] HospitalCreatine kinase [Enzymatic activity/volume] in Serum or [id number] 11:30:00 Test Item Value Reference Range Interpretation Comments creatine kinase (test code = creatine 49 U/L 20-180 kinase) [facility] HospitalPT/[id number] 11:30:00 Test Item Value Reference Range Interpretation Comments prothrombin time (test code = 9.9 seconds 10.3-12.3 L prothrombin time) INR in Blood by Coagulation assay 0.92 (test code = 87981-8) [facility] HospitalPT and aPTT panel - Platelet poor plasma by Coagulation [id number] 11:30:00 Test Item Value Reference Range Interpretation Comments INR in Blood by Coagulation 27.1 seconds 22.5-37.0 assay (test code = 03319-2) [facility] HospitalUrinalysis complete W Reflex Culture panel - Urine 2020-05-04 11:30:00 Test Item Value Reference Range Interpretation Comments Color of Urine by Auto (test dark yellow code = 06704-1) Appearance of Urine (test code clear clear = 5767-9) Glucose [Presence] in Urine by negative negative Automated test strip (test code = 14124-9) Bilirubin.total [Mass/volume] negative negative in Urine (test code = 1978-6) Ketones [Mass/volume] in Urine negative negative by Automated test strip (test code = 12031-9) Specific gravity of Urine by 1.025 1.003-1.030 Automated test strip (test code = 41718-3) blood urine (test code = blood negative negative urine) pH of Urine (test code = 7.500 5-9 2756-5) protein urine (UA) (test code = trace negative protein urine (UA)) Urobilinogen [Presence] in =2.0 0.2-1.0 H Urine (test code = 78599-5) Nitrite [Presence] in Urine by negative negative Test strip (test code = 5802-4) Leukocyte esterase [Presence] negative negative in Urine by Automated test strip (test code = 31005-1) Erythrocytes [#/volume] in =1-5 0-5 Urine by Automated count (test code = 798-9) Leukocytes [#/area] in Urine <1 0-5 sediment by Automated count (test code = 36954-0) Epithelial cells [Presence] in =6-10 0-5 Urine sediment by Light microscopy (test code = 51265-0) Bacteria identified in Urine by none detected none detect Culture (test code = 630-4) Casts [#/area] in Urine =2-5 none detect sediment by Automated count (test code = 76628-3) urine culture added? (test code no = urine culture added?) [facility] HospitalThyrotropin [Units/volume] in Serum or [id number] 11:30:00 Test Item Value Reference Range Interpretation Comments Thyrotropin [Units/volume] in 4.22 uIU/mL 0.36-3.74 H Serum or Plasma (test code = 3016-3) [facility] HospitalThyroxine (T4) free [Mass/volume] in Serum or Plasma 2020-05-04 11:30:00 Test Item Value Reference Range Interpretation Comments free T4 (test code = free T4) 1.27 NG/dL 0.93-1.7 [facility] HospitalTriiodothyronine (T3) Free [Mass/volume] in Serum or [id number] 11:30:00 Test Item Value Reference Range Interpretation Comments free T3 (test code = free T3) 2.89 pg/mL 2.0-4.4 [facility] W Auto Differential panel - [id number] 11:30:00 Test Item Value Reference Range Interpretation Comments white blood count (test code = 5.9 K/uL 4.0-11.5 white blood count) red blood count (test code = red 4.02 M/uL 3.80-5.20 blood count) hemoglobin (test code = 12.8 g/dL 10.5-15.7 hemoglobin) hematocrit (test code = 40.4 % 34.0-50.0 hematocrit) MCV [Entitic volume] (test code = 100.5 fL 86-100 H 17475-5) mean corpuscular hemoglobin (test 31.8 pg 26.2-33.4 [...] 44.4-80.1 leukocytes in Blood (test code = 53396-4) Immature granulocytes [#/volume] 0.0 K/uL 0.0-0.03 in Blood (test code = 35314-2) lymphocyte% (test code = 35.9 % 10.0-50.0 lymphocyte%) mono % (test code = mono %) 4.7 % 3.6-12.0 eos % (test code = eos %) 2.2 % 0.0-5.4 Basophils/100 leukocytes in 0.5 % 0.1-1.2 Unspecified specimen (test code = 03466-2) Band form neutrophils [#/volume] 3.35 K/uL 1.56-6.13 in Blood (test code = 84834-2) Lymphocytes [#/volume] in 2.1 K/uL 1.18-3.74 Unspecified specimen by Automated count (test code = 39520-3) mono # (test code = mono #) 0.28 K/uL 0.24-0.86 eos # (test code = eos #) 0.13 K/uL 0.04-0.36 basophil # (test code = basophil 0.03 K/uL 0.01-0.08 #) NRBC% (test code = NRBC%) 0 /100 WBC 0-0.2 NRBC# (test code = NRBC#) 0 K/uL [facility] HospitalDifferential panel, method unspecified - [id number] 11:30:00NeutrophilsBandLymphocyteAtypical LymphMonocyteEosinophilBasophilMetamyelocyteAbs Neutrophil Count (Man)Abs Lymph Count (Man)Abs Monocyte Count (Man)Abs Eosinophil Count (Man)Abs Basophil Count (Man)Platelet EstimateMataTurning Point Mature Adult Care UnitUrinalysis macro (dipstick) panel - [id number] 14:27:39 Test Item Value Reference Range Interpretation Comments Leukocytes (test code = Leukocytes) Negative Nitrite (test code = Nitrite) negative Urobilinogen (test code = .2 Urobilinogen) Protein (test code = Protein) Negative pH (test code = pH) 7.0 Blood (test code = Blood) Negative Specific [place] (test code = 1.010 Specific [place]) Ketone (test code = Ketone) Negative Bilirubin (test code = Bilirubin) Negative Glucose (test code = Glucose) Negative Appearance (test code = Appearance) Clear Color (test code = Color) Yellow [facility] GroupBacteria identified in Urine by [id number] 00:00:00 Test Item Value Reference Range Interpretation Comments Bacteria identified in Urine by comment Culture (test code = 630-4) [facility] GroupFollitropin [Units/volume] in Serum or [id number] 00:00:00 Test Item Value Reference Range Interpretation Comments Follitropin [Units/volume] in 0.5 mIU/mL Serum or Plasma (test code = 43918-6) [facility] GroupEstradiol (E2) [Mass/volume] in Serum or [id number] 00:00:00 Test Item Value Reference Range Interpretation Comments Estradiol (E2) [Mass/volume] in 47.3 pg/mL Serum or Plasma (test code = 2243-4) [facility] GroupUrinalysis macro (dipstick) panel - [id number] 13:53:54 Test Item Value Reference Range Interpretation Comments Leukocytes (test code = Leukocytes) Negative Nitrite (test code = Nitrite) positive Urobilinogen (test code = .2 Urobilinogen) Protein (test code = Protein) Negative pH (test code = pH) 6.5 Blood (test code = Blood) Negative Specific [place] (test code = 1.020 Specific [place]) Ketone (test code = Ketone) Negative Bilirubin (test code = Bilirubin) Negative Glucose (test code = Glucose) Negative Appearance (test code = Appearance) Clear Color (test code = Color) Yellow [facility] GroupUrinalysis macro (dipstick) panel - [id number] 13:53:54 Test Item Value Reference Range Interpretation Comments Leukocytes (test code = Leukocytes) Negative Nitrite (test code = Nitrite) positive Urobilinogen (test code = .2 Urobilinogen) Protein (test code = Protein) Negative pH (test code = pH) 6.5 Blood (test code = Blood) Negative Specific [place] (test code = 1.020 Specific [place]) Ketone (test code = Ketone) Negative Bilirubin (test code = Bilirubin) Negative Glucose (test code = Glucose) Negative Appearance (test code = Appearance) Clear Color (test code = Color) Yellow [facility] HospitalTISSUE [id number] 12:49:00Surgical Pathology Report Case: [id number] Aut horizing Provider: April Mock MD Collected: 01/09/2020 02:19 PM Ordering Location: [facility] Received: 01/09/2020 04:37 PM SERVICES Pathologist: Flavia Lazar MD Specimens: A) - Biopsy, Terminal Ileum, terminal ileum bx B) -Colon Biopsy, Random, random colonic bx A. SMALL BOWEL, TERMINAL ILEUM, BIOPSIES: - CHRONIC ACTIVE ILEITISB. COLON, RANDOM BIOPSIES: - REACTIVE CHANGENZK/pl Signing Pathologist Direct Phone Line: [phone] signed by Flavia Lazar MD on 01/13/2020 at 12:49 [id number] and postoperative diagnoses: Crohn's disease of both [...] colitis, dysplasia or malignancy is seen.[facility] blood [id number] 01:29:00 Test Item Value Reference Range Interpretation Comments [facility] blood [facility] to [facility] (test code = [facility] blood collection) [facility] HospitalUrinalysis macro (dipstick) panel - [id number] 15:18:00 Test Item Value Reference Range Interpretation Comments Leukocytes (test code = Negative Leukocytes) Nitrite (test code = Nitrite) negative Urobilinogen (test code = 1 Urobilinogen) Protein (test code = Protein) Trace pH (test code = pH) 6.0 Blood (test code = Blood) Negative Specific [place] (test code = 1.030 Specific [place]) Ketone (test code = Ketone) Negative Bilirubin (test code = Bilirubin) Small Glucose (test code = Glucose) Negative Appearance (test code = Clear Appearance) Color (test code = Color) Dark Yellow [facility] HospitalUrinalysis macro (dipstick) panel - [id number] 15:18:00 Test Item Value Reference Range Interpretation Comments Leukocytes (test code = Negative Leukocytes) Nitrite (test code = Nitrite) negative Urobilinogen (test code = 1 Urobilinogen) Protein (test code = Protein) Trace pH (test code = pH) 6.0 Blood (test code = Blood) Negative Specific [place] (test code = 1.030 Specific [place]) Ketone (test code = Ketone) Negative Bilirubin (test code = Bilirubin) Small Glucose (test code = Glucose) Negative Appearance (test code = Clear Appearance) Color (test code = Color) Dark Yellow [facility]Comprehensive [facility] 2000 panel - Serum or [...] Serum or Plasma (test code = 6768-6) [facility]Com[facility] 2000 panel - Serum or [...] Serum or Plasma (test code = 6768-6) [facility] blood [id number] 10:15:00 Test Item Value Reference Range Interpretation Comments [facility]) [facility] blood [id number] 10:15:00 Test Item Value Reference Range Interpretation Comments [facility] ([facility] blood [facility]) [facility] HospitalUrinalysis macro (dipstick) panel - [id number] 14:31:00 Test Item Value Reference Range Interpretation Comments Leukocytes (test code = Leukocytes) Negative Nitrite (test code = Nitrite) negative Urobilinogen (test code = .2 Urobilinogen) Protein (test code = Protein) Negative pH (test code = pH) 6.5 Blood (test code = Blood) Negative Specific [place] (test code = 1.025 Specific [place]) Ketone (test code = Ketone) Negative Bilirubin (test code = Bilirubin) Negative Glucose (test code = Glucose) Negative Appearance (test code = Appearance) Cloudy Color (test code = Color) Yellow [facility] HospitalUrinalysis macro (dipstick) panel - [id number] 14:31:00 Test Item Value Reference Range Interpretation Comments Leukocytes (test code = Leukocytes) Negative Nitrite (test code = Nitrite) negative Urobilinogen (test code = .2 Urobilinogen) Protein (test code = Protein) Negative pH (test code = pH) 6.5 Blood (test code = Blood) Negative Specific [place] (test code = 1.025 Specific [place]) Ketone (test code = Ketone) Negative Bilirubin (test code = Bilirubin) Negative Glucose (test code = Glucose) Negative Appearance (test code = Appearance) Cloudy Color (test code = Color) Yellow [facility] HospitalCT, [id number] 10:26:00ENTEROGRAPHYFINAL REPORT CT of the abdomen and [...] MDReport Verified Date/Time: 06/19/2019 10:26:36 Reading Location: [facility] B1 [id number] Ortho Consult Reading Room quest [id number] 10:45:00 Test Item Value Reference Range Interpretation Comments quest collection (test code = quest quest collection) [facility] HospitalCandida sp DNA [Presence] in Vaginal fluid by Probe and target amplification [id number] 00:00:00 Test Item Value Reference Range Interpretation [...] code = ye glabrata by real-time PCR) [facility] HospitalUrinalysis macro (dipstick) panel - [id number] 13:42:54 Test Item Value Reference Range Interpretation Comments Leukocytes (test code = Leukocytes) Negative Nitrite (test code = Nitrite) negative Urobilinogen (test code = .2 Urobilinogen) Protein (test code = Protein) Negative pH (test code = pH) 7.0 Blood (test code = Blood) Negative Specific [place] (test code = 1.015 Specific [place]) Ketone (test code = Ketone) Trace Bilirubin (test code = Bilirubin) Small Glucose (test code = Glucose) Negative Appearance (test code = Appearance) Clear Color (test code = Color) Yellow [facility] HospitalUrinalysis macro (dipstick) panel - [id number] 13:42:54 Test Item Value Reference Range Interpretation Comments Leukocytes (test code = Leukocytes) Negative Nitrite (test code = Nitrite) negative Urobilinogen (test code = .2 Urobilinogen) Protein (test code = Protein) Negative pH (test code = pH) 7.0 Blood (test code = Blood) Negative Specific [place] (test code = 1.015 Specific [place]) Ketone (test code = Ketone) Trace Bilirubin (test code = Bilirubin) Small Glucose (test code = Glucose) Negative Appearance (test code = Appearance) Clear Color (test code = Color) Yellow [facility] HospitalUrinalysis macro (dipstick) panel - [id number] 10:18:17 Test Item Value Reference Range Interpretation Comments Leukocytes (test code = Leukocytes) Negative Nitrite (test code = Nitrite) negative Urobilinogen (test code = .2 Urobilinogen) Protein (test code = Protein) Negative pH (test code = pH) 6.5 Blood (test code = Blood) Negative Specific [place] (test code = 1.010 Specific [place]) Ketone (test code = Ketone) Negative Bilirubin (test code = Bilirubin) Negative Glucose (test code = Glucose) Negative Appearance (test code = Appearance) Clear Color (test code = Color) Yellow [facility] HospitalUrinalysis macro (dipstick) panel - [id number] 10:18:17 Test Item Value Reference Range Interpretation Comments Leukocytes (test code = Leukocytes) Negative Nitrite (test code = Nitrite) negative Urobilinogen (test code = .2 Urobilinogen) Protein (test code = Protein) Negative pH (test code = pH) 6.5 Blood (test code = Blood) Negative Specific [place] (test code = 1.010 Specific [place]) Ketone (test code = Ketone) Negative Bilirubin (test code = Bilirubin) Negative Glucose (test code = Glucose) Negative Appearance (test code = Appearance) Clear Color (test code = Color) Yellow [facility] HospitalUrinalysis macro (dipstick) panel - [id number] 10:18:17 Test Item Value Reference Range Interpretation Comments Leukocytes (test code = Leukocytes) Negative Nitrite (test code = Nitrite) negative Urobilinogen (test code = .2 Urobilinogen) Protein (test code = Protein) Negative pH (test code = pH) 6.5 Blood (test code = Blood) Negative Specific [place] (test code = 1.010 Specific [place]) Ketone (test code = Ketone) Negative Bilirubin (test code = Bilirubin) Negative Glucose (test code = Glucose) Negative Appearance (test code = Appearance) Clear Color (test code = Color) Yellow [facility] HospitalUrinalysis macro (dipstick) panel - [id number] 10:04:32 Test Item Value Reference Range Interpretation Comments Leukocytes (test code = Leukocytes) Negative Nitrite (test code = Nitrite) negative Urobilinogen (test code = .2 Urobilinogen) Protein (test code = Protein) Negative pH (test code = pH) 6.5 Blood (test code = Blood) Negative Specific [place] (test code = 1.010 Specific [place]) Ketone (test code = Ketone) Negative Bilirubin (test code = Bilirubin) Negative Glucose (test code = Glucose) Negative Appearance (test code = Appearance) Clear Color (test code = Color) Yellow [facility] GroupUrinalysis macro (dipstick) panel - [id number] 10:04:32 Test Item Value Reference Range Interpretation Comments Leukocytes (test code = Leukocytes) Negative Nitrite (test code = Nitrite) negative Urobilinogen (test code = .2 Urobilinogen) Protein (test code = Protein) Negative pH (test code = pH) 6.5 Blood (test code = Blood) Negative Specific [place] (test code = 1.010 Specific [place]) Ketone (test code = Ketone) Negative Bilirubin (test code = Bilirubin) Negative Glucose (test code = Glucose) Negative Appearance (test code = Appearance) Clear Color (test code = Color) Yellow [facility] HospitalUrinalysis macro (dipstick) panel - [id number] 10:04:32 Test Item Value Reference Range Interpretation Comments Leukocytes (test code = Leukocytes) Negative Nitrite (test code = Nitrite) negative Urobilinogen (test code = .2 Urobilinogen) Protein (test code = Protein) Negative pH (test code = pH) 6.5 Blood (test code = Blood) Negative Specific [place] (test code = 1.010 Specific [place]) Ketone (test code = Ketone) Negative Bilirubin (test code = Bilirubin) Negative Glucose (test code = Glucose) Negative Appearance (test code = Appearance) Clear Color (test code = Color) Yellow [facility] GroupBacteria identified in Urine by [id number] 00:00:00Bacteria Ur CultMatagoa Medical Groupantibiotic sensitivity testing, [id number] 00:00:00 Test Item Value Reference Range Interpretation [...] Minimum inhibitory concentration (VIVIENNE) (test code = 17720-3) Piperacillin+Tazobactam <16 [Susceptibility] by Minimum inhibitory concentration [...] <2 inhibitory concentration (VIVIENNE) (test code = 24344-2) Aztreonam [Susceptibility] by Minimum <8 inhibitory concentration (VIVIENNE) (test code = 44-8) Cefuroxime [Susceptibility] by Minimum <4 inhibitory concentration (VIVIENNE) (test code = 65675-6) Meropenem [Susceptibility] by Minimum <4 inhibitory concentration (VIVIENNE) (test code = 6652-2) [facility] HospitalBacteria identified in Urine by [id number] 00:00:00BaMonterey [facility] Hospitalantibiotic sensitivity testing, [id number] 00:00:00 Test Item Value Reference Range Interpretation [...] Minimum inhibitory concentration (VIVIENNE) (test code = 16275-5) Piperacillin+Tazobactam <16 [Susceptibility] by Minimum inhibitory concentration [...] <2 inhibitory concentration (VIVIENNE) (test code = 44526-6) Aztreonam [Susceptibility] by Minimum <8 inhibitory concentration (VIVIENNE) (test code = 44-8) Cefuroxime [Susceptibility] by Minimum <4 inhibitory concentration (VIVIENNE) (test code = 55325-5) Meropenem [Susceptibility] by Minimum <4 inhibitory concentration (VIVIENNE) (test code = 6652-2) [facility] HospitalMicroscopic observation [Identifier] in Cervix by Cyto stain.thin [id number] 00:00:00 Test Item Value Reference Range Interpretation Comments Human papilloma virus positive 16+18+31+33+35+39+45+51+52+56+58+59+ 68 DNA [Presence] in Cervix by Probe and signal amplification method (test code = 19788-9) results (test code = results) [facility] GroupBacteria identified in Urine by [id number] 02:14:00 Test Item Value Reference Range Interpretation Comments Bacteria identified in no growth at 48 hrs. Urine by Culture (test code = 630-4) [facility] GroupBacteria identified in Urine by [id number] 02:14:00 Test Item Value Reference Range Interpretation Comments Bacteria identified in no growth at 48 hrs. Urine by Culture (test code = 630-4) [facility] [id number] 08:01:00 Test Item Value Reference Range Interpretation Comments MAGNESIUM (BEAKER) 1.8 mg/dL 1.6-2.6 Specimen moderately (test code = 627) hemolyzed BASIC METABOLIC [id number] 08:01:00 Test Item Value Reference Range Interpretation [...] PATIEN TS. CBC W/PLT COUNT & AUTO [id number] 05:59:00 Test Item Value Reference Range Interpretation [...] 0-1 PERCENT (BEAKER) (test code = 2801) [id number] 07:04:00 Test Item Value Reference Range Interpretation Comments MAGNESIUM (BEAKER) (test code = 1.8 mg/dL 1.6-2.6 627) BASIC METABOLIC [id number] 07:04:00 Test Item Value Reference Range Interpretation [...] NOT APPLICABLE FOR DIALYSIS PATIEN TS. CORTISOL,60 [id number] 07:01:00 Test Item Value Reference Range Interpretation [...] a study by Padilla et al (MIGUEL 2000,283(8):7579-45), the ACTH Stimulation Test provides important prognostic [...] after cosyntropin administration.CBC W/PLT COUNT & AUTO [id number] 05:46:00 Test Item Value Reference Range Interpretation [...] 0-1 PERCENT (BEAKER) (test code = 2801) CORTISOL,[id number] 19:10:00 Test Item Value Reference Range Interpretation [...] a study by Padilla et al (MIGUEL 2000,283(8):1509-80), the ACTH Stimulation Test provides important prognostic [...] = 1.8 mg/dL 1.6-2.6 627) BASIC METABOLIC [id number] 14:23:00 Test Item Value Reference Range Interpretation [...] PATIEN TS. CBC W/PLT COUNT & AUTO [id number] 14:01:00 Test Item Value Reference Range Interpretation [...] (test code = 2801) OVA AND PARASITE [id number] 12:03:00 Test Item Value Reference Range Interpretation [...] (BEAKER) (test seen seen code = 248) [id number] 05:30:00 Test Item Value Reference Range Interpretation Comments MAGNESIUM (BEAKER) (test code = 1.9 mg/dL 1.6-2.6 627) BASIC METABOLIC [id number] 05:30:00 Test Item Value Reference Range Interpretation [...] PATIEN TS. CBC W/PLT COUNT & AUTO [id number] 04:58:00 Test Item Value Reference Range Interpretation [...] PERCENT (BEAKER) (test code = 2801) TISSUE [id number] 15:51:00Surgical Pathology Report Case: [id number] Authorizing Provider: Bartolo Quinn Collected: 11/10/2018 1543 Ordering Location: [address] Received: 11/12/2018 0813 Service Pathologist: [...] CRYPT DISTORTION Signing Pathologist Direct Phone Line: [phone] signed by Linda Mullen MD on 11/12/2018 at 3:51 PMPatient's history of Crohn's disease is noted. The current sampling shows no significant active or chronic colitis. This may represent complete histologic resolution following treatment. Clinical and endoscopic correlation is recommended.[id number] and postop diagnosis: diarrhea A. Neoterminal ileum [...] in E1. CG/pl Performed.STOOL CULTURE + SHIGA [id number] 08:26:00 Test Item Value Reference Range Interpretation Comments CULTURE (BEAKER) No Salmonella, Shigella (test code = 1095) or Campylobacter isolated GI PATHOGEN PROFILE BY [id number] 08:20:00 Test Item Value Reference Range Interpretation [...] Not detected BY PCR (test code = 7007912) ENTEROPATHOGENIC E. COLI (EPEC) Not detected Not detected BY PCR (test code = 20151203) ENTEROTOXIGENIC E. COLI (ETEC) Not detected Not detected LT/ST BY PCR (test code = 3278239) SHIGA-LIKE TOXIN-PRODUCING E. Not detected Not detected COLI (STEC) STX1/STX2 (test code = 5056716) E. COLI O157 (PCR) (test code = Not detected 20151206) SHIGELLA/ENTEROINVASIVE E. COLI Not detected Not detected (EIEC) BY PCR (test code = 20151207) CRYPTOSPORIDIUM (PCR) (test code Not detected Not detected = 20151208) CYCLOSPORA CAYETANENSIS (PCR) Not detected Not detected (test code = 9070986) ENTAMOEBA HISTOLYTICA (PCR) Not detected Not detected (test code = 20151231) GIARDIA LAMBLIA (PCR) (test code Not detected Not detected = 20160101) ADENOVIRUS F 40/41 (PCR) (test Not detected Not detected code = 20160102) ASTROVIRUS (PCR) (test code = Not detected Not detected 20160103) NOROVIRUS GI/GII (PCR) (test Not detected Not detected code = 9990414) ROTAVIRUS A (PCR) (test code = Not detected Not detected 20160105) SAPOVIRUS (I, II, IV, V) BY PCR Not detected Not detected (test code = 20160106) VIBRIO (PARAHAEMOLYTICUS, Not detected Not detected VULNIFICUS) (test code = 1851631) Other viruses, parasites and bacteria not targeted by this PCR panel cannot be excluded; therefore clinical correlation and follow up of serology, culture results, and other molecular studies is required. The results are not intended to be used as the sole means for clinical diagnosis or patient management decisions. This sample was tested at the [facility] Molecular Diagnostics Laboratory using the [employer] Gastrointestinal Panel. It is FDA cleared and has been verified and approved by the [facility] Molecular Diagnostics Laboratory for clinical use. This laboratory is CLIA-certified and College ofAmerican Pathologists (CAP)-accredited to perform high complexity testing.CORTISOL 2018-11-09 06:24:00 Test Item Value Reference Range Interpretation Comments CORTISOL, TOTAL (BEAKER) (test code = < ug/dL 3.7-19.4 L 2755) BASIC METABOLIC [id number] 05:50:00 Test Item Value Reference Range Interpretation [...] APPLICABLE FOR DIALYSIS PATIEN TS. SHIGA TOXIN [id number] 14:16:00 Test Item Value Reference Range Interpretation Comments SHIGA TOXIN 1 (BEAKER) (test Not detected Not detected code = 2177) SHIGA TOXIN 2 (BEAKER) (test Not detected Not detected code = 2179) STOOL PATH [id number] 10:08:00 Test Item Value Reference Range Interpretation Comments PATHOGEN EXAM CHARGED (BEAKER) (test Done code = 2381) TSH/FREE T4 IF [id number] 05:59:00 Test Item Value Reference Range Interpretation Comments THYROID STIMULATING HORMONE 2.84 uIU/mL 0.35-4.94 (BEAKER) (test code = 772) BASIC METABOLIC [id number] 05:38:00 Test Item Value Reference Range Interpretation [...] DIALYSIS PATIEN TS. RAD, ABDOMEN/KUB, 1 VIEW [id number] 14:37:00Reason for exam:->post-obstructive diarrheaShould this be performed [...] MDReport Verified Date/Time: 11/07/2018 14:37:57 Reading Location: [address] Consult Reading Room CT, [id number] 14:25:00FINAL REPORT TECHNIQUE: CT of the abdomen [...] MDReport Verified Date/Time: 11/07/2018 14:25:25 Reading Location: [facility] C013Y CT Body Reading Room CBC W/PLT COUNT & AUTO [id number] 13:14:00 Test Item Value Reference Range Interpretation [...] comment: User comments: Slide comments:C. DIFFICILE GDH [id number] 12:53:00 Test Item Value Reference Range Interpretation Comments CDT TOXIN (test code Negative Negative = 6596811552) CDT GDH ANTIGEN (test Negative Negative No ind ication of code = 3934110802) Clostridi um difficile infection and n o colonization. Discontinue ent leon isolation and t herapy. Testing performed by [employer] Rapid Cassette Assay. For GDH, published sensitivity of the assay is 98.7% compared to cytotoxicity testing. For Toxin AB, published sensitivity is 87.8% and specificity 99.4% compared to cytotoxicity testing.Verification of kit performance was done by the [facility] Microbiology Lab prior to clinical use.C-REACTIVE [id number] 06:53:00 Test Item Value Reference Range Interpretation Comments C-REACTIVE PROTEIN (BEAKER) (test 0.37 mg/dL 0.00-0.50 code = 676) BASIC METABOLIC [id number] 06:41:00 Test Item Value Reference Range Interpretation [...] S NOT APPLICABLE FOR DIALYSIS PATIEN TS. Laboratory [id number] 05:30:00 Test Item Value Reference Range Interpretation Comments Sodium Level (test code = Sodium Level) 142 136-145 [facility] [id number] 05:30:00 Test Item Value Reference Range Interpretation Comments Potassium Level (test code = Potassium 3.6 3.5-5.1 Level) [facility] [id number] 05:30:00 Test Item Value Reference Range Interpretation Comments Magnesium Level (test code = Magnesium 1.9 1.8-2.4 Level) [facility] [id number] 05:30:00 Test Item Value Reference Range Interpretation Comments Glucose Level (test code = Glucose 160 74-106 Level) [facility] CenterLab[facility]wardtory [id number] 05:30:00 Test Item Value Reference Range Interpretation Comments Estimat Glomerular 85 See_Comment [Automat ed message] The Filtration Rate (test system which generated code = Estimat this result t ransmitted Glomerular Filtration refere nce range: >=90. Rate) The reference r markus was not used to int erpret this result as normal/abnormal . [facility] 05:30[facility]00 Test Item Value Reference Range Interpretation Comments Creatinine (test code = Creatinine) 0.73 0.55-1.3 [facility]2019-06-18 05:30:00 Test Item Value Reference Range Interpretation Comments Chloride Level (test code = Chloride 108 98-107 Level) [facility]2019-06-18 05:30:00 Test Item Value Reference Range Interpretation Comments Carbon Dioxide Level (test code = 26 21-32 Carbon Dioxide Level) [facility]2019-06-18 05:30:00 Test Item Value Reference Range Interpretation Comments Calcium Level (test code = Calcium 8.4 8.5-10.1 Level) [facility]2019-06-18 05:30:00 Test Item Value Reference Range Interpretation Comments Blood Urea Nitrogen (test code = Blood 8 7-18 Urea Nitrogen) [facility]2019-06-18 05:30:00 Test Item Value Reference Range Interpretation Comments White Blood Count (test code = White 3.6 4.3-10.9 Blood Count) [facility]2019-06-18 05:30:00 Test Item Value Reference Range Interpretation Comments Red Cell Distribution Width (test code 15.0 12.1-15.2 = Red Cell Distribution Width) [facility]2019-06-18 05:30:00 Test Item Value Reference Range Interpretation Comments Red Blood Count (test code = Red Blood 4.27 3.86-4.86 Count) [facility]2019-06-18 05:30:00 Test Item Value Reference Range Interpretation Comments Platelet Count (test code = Platelet 291 152-406 Count) [facility]2019-06-18 05:30:00 Test Item Value Reference Range Interpretation Comments Neutrophils % (test code = Neutrophils 78.0 41.7-73.7 %) [facility]2019-06-18 05:30:00 Test Item Value Reference Range Interpretation Comments Monocytes % (test code = Monocytes %) 1.0 3.3-12.3 [facility]2019-06-18 05:30:00 Test Item Value Reference Range Interpretation Comments Mean Platelet Volume (test code = Mean 7.1 7.6-11.3 Platelet Volume) [facility]2019-06-18 05:30:00 Test Item Value Reference Range Interpretation Comments Mean Corpuscular Volume (test code = 91.9 80-100 Mean Corpuscular Volume) [facility]2019-06-18 05:30:00 Test Item Value Reference Range Interpretation Comments Mean Corpuscular Hemoglobin Concent 33.4 32.0-36.0 (test code = Mean Corpuscular Hemoglobin Concent) [facility]2019-06-18 05:30:00 Test Item Value Reference Range Interpretation Comments Mean Corpuscular Hemoglobin (test 30.7 pg 27.0-35.0 code = Mean Corpuscular Hemoglobin) [facility]2019-06-18 05:30:00 Test Item Value Reference Range Interpretation Comments Lymphocytes % (test code = Lymphocytes 20.7 15.3-44.8 %) [facility]2019-06-18 05:30:00 Test Item Value Reference Range Interpretation Comments Hemoglobin (test code = Hemoglobin) 13.1 12.0-15.0 [facility]2019-06-18 05:30:00 Test Item Value Reference Range Interpretation Comments Hematocrit (test code = Hematocrit) 39.2 36.0-45.0 [facility]2019-06-18 05:30:00 Test Item Value Reference Range Interpretation Comments Eosinophils % (test code 0.0 See_Comment [A utomated message] The = Eosinophils %) [facility] generated this result tra nsmitted reference range : <=4.4. The reference r markus was not used to int erpret this result as normal/abnormal . [facility]2019-06-18 05:30:00 Test Item Value Reference Range Interpretation Comments Basophils % (test code 0.3 See_Comment [Aut omated message] The = Basophils %) system which generated this result tra nsmitted reference range : <=1.3. The reference r markus was not used to int erpret this result as normal/abnormal . [facility]2019-06-18 05:30:00 Test Item Value Reference Range Interpretation Comments Absolute Neutrophil (test code = 2.8 1.8-8.0 Absolute Neutrophil) [facility]2019-06-18 05:30:00 Test Item Value Reference Range Interpretation Comments Absolute Monocytes (CBC) (test code = 0.0 0.1-1.3 Absolute Monocytes (CBC)) [facility]2019-06-18 05:30:00 Test Item Value Reference Range Interpretation Comments Absolute Lymphocytes (CBC) (test code = 0.7 0.7-4.9 Absolute Lymphocytes (CBC)) [facility]2019-06-18 05:30:00 Test Item Value Reference Range Interpretation Comments Absolute Eosinophils 0.0 See_Comment [Autom ated message] The (CBC) (test code = system wh ich generated Absolute Eosinophils this re sult transmitted (CBC)) reference range : <=0.5. The reference r markus was not used to int erpret this result as normal/abnormal . [facility]2019-06-18 05:30:00 Test Item Value Reference Range Interpretation Comments Absolute Basophils 0.0 See_Comment [Automat ed message] The (CBC) (test code = system [employer] ich generated Absolute Basophils this resu lt transmitted (CBC)) reference range : <=0.5. The reference r markus was not used to int erpret this result as normal/abnormal . [facility]2019-06-17 19:15:00 Test Item Value Reference Range Interpretation Comments Urine pH (test code = Urine pH) 7.0 1 [facility]2019-06-17 19:15:00 Test Item Value Reference Range Interpretation Comments Urine Total Protein (test Urine Total Protein code = Urine Total Protein) [facility]2019-06-17 19:15:00 Test Item Value Reference Range Interpretation Comments Urine Specific [place] (test code = 1.010 1 Urine Specific [place]) [facility]2019-06-17 19:15:00 Test Item Value Reference Range Interpretation Comments Urine Nitrite (test code = Urine Nitrite Urine Nitrite) [facility]2019-06-17 19:15:00 Test Item Value Reference Range Interpretation Comments Urine Leukocyte Urine Leukocyte Esterase (test code = Esterase Urine Leukocyte Esterase) [facility]2019-06-17 19:15:00 Test Item Value Reference Range Interpretation Comments Urine Ketones (test code = Urine Ketones Urine Ketones) [facility] [id number] 19:15:00 Test Item Value Reference Range Interpretation Comments Urine Glucose (test code = Urine Glucose Urine Glucose) [facility]2019-06-17 19:15:00 Test Item Value Reference Range Interpretation Comments Urine Blood (test code = Urine Urine Blood Blood) [facility]2019-06-17 19:05:00 Test Item Value Reference Range Interpretation Comments Urine WBC (test code = Urine WBC) no gt [facility]2019-06-17 19:05:00 Test Item Value Reference Range Interpretation Comments Urine Squamous Epithelial Cells (test no gt code = Urine Squamous Epithelial Cells) [facility]2019-06-17 19:05:00 Test Item Value Reference Range Interpretation Comments Urine RBC (test code = Urine RBC) Urine RBC [facility]2019-06-17 19:05:00 Test Item Value Reference Range Interpretation Comments Urine Culture Reflexed Urine Culture Reflexed (test code = Urine Culture Reflexed) [facility]2019-06-17 19:05:00 Test Item Value Reference Range Interpretation Comments Urine Bacteria (test code = Urine Bacteria Urine Bacteria) [facility]2019-06-17 16:40:00 Test Item Value Reference Range Interpretation Comments Total Bilirubin (test code = Total 0.3 0.2-1.0 Bilirubin) [facility]2019-06-17 16:40:00 Test Item Value Reference Range Interpretation Comments Serum Total Protein (test code = Serum 7.2 6.4-8.2 Total Protein) [facility]2019-06-17 16:40:00 Test Item Value Reference Range Interpretation Comments Lipase (test code = Lipase) 96 73-393 [facility]2019-06-17 16:40:00 Test Item Value Reference Range Interpretation Comments Globulin (test code = Globulin) 3.9 2.3-3.5 [facility]2019-06-17 16:40:00 Test Item Value Reference Range Interpretation Comments Direct Bilirubin (test 0.1 See_Comment [Aut omated message] The code = Direct system which g enerated Bilirubin) this result tra nsmitted reference range : <=0.2. The reference r markus was not used to int erpret this result as normal/abnormal . [facility] [id number] 16:40:00 Test Item Value Reference Range Interpretation Comments Aspartate Amino Transf (AST/SGOT) (test 19 15-37 code = Aspartate Amino Transf (AST/SGOT)) [facility] [id number] 16:40:00 Test Item Value Reference Range Interpretation Comments Alkaline Phosphatase (test code = 102 45-117 Alkaline Phosphatase) [facility] Center[facility]ward[facility]ory [id number] 16:40:00 Test Item Value Reference Range Interpretation Comments Albumin/Globulin Ratio (test code = 0.8 1 1.1-1.8 Albumin/Globulin Ratio) [facility] [id number] 16:40:00 Test Item Value Reference Range Interpretation Comments Albumin (test code = Albumin) 3.3 3.4-5.0 [facility] [id number] 16:40:00 Test Item Value Reference Range Interpretation Comments Alanine Aminotransferase (ALT/SGPT) 16 (test code = Alanine Aminotransferase (ALT/SGPT)) [facility], [id number] 09:48:00FINAL REPORT CT Abdomen And Pelvis with [...] of dilatation or mural hyperemia. No fluid ronny ection. 2. No evidence of incisional hernia. 3. Stable renal cysts. Annual surveillance of the left upper pole cyst with CT is recommended to confirm stability. Signed: Yany Henriquez MDRepsaint [facility]ose[facility] Verified Date/Time: 09/20/2018 09:48:51 [facility], BONE DENSITY [id number] 13:22:00Reason for Exam:- >crohn's disease of both [...] for bone mineral density as provided by coloring checker is 0.023 g/cm2 for lumbar spine [...] Art Bermeo MDReport Verified Date/Time: 09/04/2018 13:22:29 [id number] 07:02:00 Test Item Value Reference Range Interpretation Comments PHOSPHORUS (BEAKER) (test code = 2.9 mg/dL 2.3-4.7 604) [id number] 07:02:00 Test Item Value Reference Range Interpretation Comments MAGNESIUM (BEAKER) (test code = 1.9 mg/dL 1.6-2.6 627) BASIC METABOLIC [id number] 07:02:00 Test Item Value Reference Range Interpretation [...] 0-0 (BEAKER) (test code = 413) TISSUE [id number] 13:47:00Surgical Pathology Report Case: [id number] Authorizing Provider: Jani Alejandro MD Collected: 08/20/2018 1003 Ordering Location: [facility] Received: 08/20/2018 1118 SERVICES Pathologist: Linda Mullen MD Specimen: Large Intestine, Colon - Right/Ascending, RIGHT COLON AND SMALL BOWEL A. COLON, RIGHT/ASCENDING, RIGHT HEMICOLECTOMY: - CHRONIC ACTIVE ENTERITIS COMPATIBLE WITH CROHN'S DISEASE (SEE COMMENT) - NEGATIVE FOR GRANULOMAS (OR) VIRAL CYTOPATHIC CHANGES - NEGATIVE FOR DYSPLASIA (OR) MALIGNANCY - MARGINS, UNREMARKABLE Signing Pathologist Direct Phone Line: [phone] signed by Linda Mullen MD on 08/22/2018 [...] cytopathic changes are seen.IDC: Dr. Leslie Carballo conckourtney.33726Yapvn's disease of small intestine without complication Right [...] folding and no masses or lesions identified. Community Development Coordinator sections are submitted in 10 cassettes as follows.Ink code: Blue-one marginBlack-margin closest to anastomotic siteSection code: A1 - senior customer service representative sections of both margins, differentially inked per the ink code A2-A5 - entire sections of ulcerative areaA6 - entire sections of hemorrhagic mucosal areaA7-A10 - senior customer service representative sections of mucosaFR/ewPerformed.[id number] 06:10:00 Test Item Value Reference Range Interpretation Comments PHOSPHORUS (BEAKER) (test code = 2.3 mg/dL 2.3-4.7 604) [id number] 06:10:00 Test Item Value Reference Range Interpretation Comments MAGNESIUM (BEAKER) (test code = 1.7 mg/dL 1.6-2.6 627) BASIC METABOLIC [id number] 06:10:00 Test Item Value Reference Range Interpretation [...] WBC 0-0 (BEAKER) (test code = 413) [id number] 03:34:00 Test Item Value Reference Range Interpretation Comments PHOSPHORUS (BEAKER) (test code = 2.5 mg/dL 2.3-4.7 604) [id number] 03:34:00 Test Item Value Reference Range Interpretation Comments MAGNESIUM (BEAKER) (test code = 1.9 mg/dL 1.6-2.6 627) BASIC METABOLIC [id number] 03:34:00 Test Item Value Reference Range Interpretation [...] 0-0 (BEAKER) (test code = 413) POCT-GLUCOSE [id number] 11:42:00 Test Item Value Reference Range Interpretation Comments POC-GLUCOSE METER 129 mg/dL 70-110 H TESTED AT [facility] 6720 ([facility]) (test code = RYNE Barnes [facility] 1538) [address] POCT-GLUCOSE [id number] 06:28:00 Test Item Value Reference Range Interpretation Comments POC-GLUCOSE METER 102 mg/dL 70-110 TESTED AT [facility] 67[address] ([facility]) (test code = RYNE Barnes [place] 1538) [address] CT, [id number] 15:41:00FINAL REPORT CT abdomen and pelvis with [...] MDReport Verified Date/Time: 08/17/2018 15:41:17 Reading Location: [facility] Diagnostic Imaging Reading Room - [place] [address] STOOL CULTURE + SHIGA [id number] 15:37:00 Test Item Value Reference Range Interpretation Comments CULTURE (BEAKER) No Salmonella, Shigella (test code = 1095) or Campylobacter isolated POCT-GLUCOSE [id number] 08:25:00 Test Item Value Reference Range Interpretation Comments POC-GLUCOSE METER 197 mg/dL 70-110 H TESTED AT [facility] 67[address] (BEAKER) (test code = RYNE Molly [place] 1538) [address] [id number] 05:59:00 Test Item Value Reference Range Interpretation Comments PHOSPHORUS (BEAKER) (test code = 3.6 mg/dL 2.3-4.7 604) [id number] 05:59:00 Test Item Value Reference Range Interpretation Comments MAGNESIUM (BEAKER) (test code = 2.3 mg/dL 1.6-2.6 627) BASIC METABOLIC [id number] 05:59:00 Test Item Value Reference Range Interpretation [...] APPLICABLE FOR DIALYSIS PATIEN TS. HEPATIC FUNCTION [id number] 05:59:00 Test Item Value Reference Range Interpretation [...] code = 41 U/L 6-55 347) POCT-GLUCOSE [id number] 21:05:00 Test Item Value Reference Range Interpretation Comments POC-GLUCOSE METER 148 mg/dL 70-110 H TESTED AT [facility] 6720 (BEAKER) (test code = RYNE LAROSE 7849) [address] C. DIFFICILE GDH [id number] 15:59:00 Test Item Value Reference Range Interpretation Comments CDT TOXIN (test code Negative Negative = [id number]) CDT GDH ANTIGEN (test Negative Negative No ind ication of code = 4085394905) Clostridi um difficile infection and n o colonization. Discontinue ent leon isolation and t herapy. Testing performed by [employer] Rapid Cassette Assay. For GDH, published sensitivity of the assay is 98.7% compared to cytotoxicity testing. For Toxin AB, published sensitivity is 87.8% and specificity 99.4% compared to cytotoxicity testing.Verification of kit performance was done by the [facility] Microbiology Lab prior to clinical use.SHIGA TOXIN [id number] 14:22:00 Test Item Value Reference Range Interpretation Comments SHIGA TOXIN 1 ([facility]) (test Not detected Not detected code = 2177) SHIGA TOXIN 2 ([facility]) (test Not detected Not detected code = 2179) POCT-GLUCOSE [id number] 13:13:00 Test Item Value Reference Range Interpretation Comments POC-GLUCOSE METER 119 mg/dL 70-110 H TESTED AT [place] [address] ([facility]) (test code = RYNE Barnes [facility] 1538) [address] STOOL PATH [id number] 10:03:00 Test Item Value Reference Range Interpretation Comments PATHOGEN EXAM CHARGED ([facility]) (test Done code = 2381) POCT-GLUCOSE [id number] 09:13:00 Test Item Value Reference Range Interpretation Comments POC-GLUCOSE METER 111 mg/dL 70-110 H TESTED AT [place] [address] ([facility]) (test code = [facility] Molly [facility] 1538) [address] [id number] 06:09:00 Test Item Value Reference Range Interpretation Comments PREALBUMIN ([facility]) (test code = 36 mg/dL 14-45 586) CBC W/PLT COUNT & AUTO [id number] 06:02:00 Test Item Value Reference Range Interpretation Comments WHITE BLOOD CELL COUNT ([facility]) 8.2 K/ L 3.5-10.5 (test code = 775) RED BLOOD CELL COUNT ([facility]) 4.02 M/ L 3.93-5.22 (test code = 761) HEMOGLOBIN ([facility]) (test code = 12.5 GM/DL 11.2-15.7 410) [...] 0-1 PERCENT (BEAKER) (test code = 2801) [id number] 05:52:00 Test Item Value Reference Range Interpretation Comments PHOSPHORUS (BEAKER) (test code = 4.0 mg/dL 2.3-4.7 604) [id number] 05:52:00 Test Item Value Reference Range Interpretation Comments MAGNESIUM (BEAKER) (test code = 2.3 mg/dL 1.6-2.6 627) BASIC METABOLIC [id number] 05:52:00 Test Item Value Reference Range Interpretation [...] APPLICABLE FOR DIALYSIS PATIEN TS. HEPATIC FUNCTION [id number] 05:52:00 Test Item Value Reference Range Interpretation [...] code = 29 U/L 6-55 347) C-REACTIVE [id number] 05:52:00 Test Item Value Reference Range Interpretation Comments C-REACTIVE PROTEIN (BEAKER) (test 0.22 mg/dL 0.00-0.50 code = 676) POCT-GLUCOSE [id number] 23:39:00 Test Item Value Reference Range Interpretation Comments POC-GLUCOSE METER 122 mg/dL 70-110 H TESTED AT [facility] 6720 (JESS) (test code = [place] 1538) [address] CT, [id number] 04:05:00FINAL REPORT CLINICAL HISTORY: Acute abdominal pain, [...] Clear lungs. No pleural effusion or pneumothorax. Visuali zed cardiac contours normal. Liver: No significant findings. [...] MDReport Verified Date/Time: 07/21/2018 04:05:05 Reading Location: [address] Reading Room [id number] 22:00:00 Test Item Value Reference Range Interpretation Comments LIPASE (BEAKER) (test code = 749) 12 U/L 8-78 COMPREHENSIVE METABOLIC [id number] 22:00:00 Test Item Value Reference Range Interpretation [...] I S NOT APPLICABLE FOR DIALYSIS PATIEN [id number] 21:55:00 Test Item Value Reference Range Interpretation Comments PARTIAL THROMBOPLASTIN TIME 24.6 seconds 22.5-36.0 (BEAKER) (test code = 760) PROTHROMBIN TIME/[id number] 21:53:00 Test Item Value Reference Range Interpretation [...] 0-1 PERCENT (BEAKER) (test code = 2801) Laboratory [id number] 20:37:00 Test Item Value Reference Range Interpretation Comments Urine Test Urine Test (test code = Urine Test) [facility] [id number] 09:23:00Surgical Pathology Report Case: [id number] Authorizing Provider: King Huynh MD Collected: 07/11/2018 0924 Ordering Location: [address] Received: 07/11/2018 1421 Service Pathologist: [...] AND COMMENT) Signing Pathologist Direct Phone Line: [phone] signed by Linda Mullen MD on 07/12/2018 at 9:23 AMPatient's history of Crohn's disease is noted per [facility] note dated 07/10/18. The current sampling shows no significant active or chronic colitis. This may represent complete histologic resolution following treatment. Clinical and endoscopic correlation is recommended.[id number] abdominal pain A. Random colon biopsy. B. [...] noted. No dysplasia or carcinoma is present.BLOOD [id number] 20:01:00 Test Item Value Reference Range Interpretation Comments CULTURE (BEAKER) (test No growth in 5 days code = 1095) BLOOD [id number] 20:01:00 Test Item Value Reference Range Interpretation Comments CULTURE (BEAKER) (test No growth in 5 days code = 1095) BASIC METABOLIC [id number] 04:55:00 Test Item Value Reference Range Interpretation [...] PATIEN TS. CBC W/PLT COUNT & AUTO [id number] 04:37:00 Test Item Value Reference Range Interpretation [...] (BEAKER) (test code = 2801) BASIC METABOLIC [id number] 06:15:00 Test Item Value Reference Range Interpretation [...] PATIEN TS. CBC W/PLT COUNT & AUTO [id number] 06:06:00 Test Item Value Reference Range Interpretation [...] code = 2801) STOOL CULTURE + SHIGA [id number] 12:15:00 Test Item Value Reference Range Interpretation Comments CULTURE (BEAKER) No Salmonella, Shigella (test code = 1095) or Campylobacter isolated BASIC METABOLIC [id number] 07:08:00 Test Item Value Reference Range Interpretation [...] PATIEN TS. CBC W/PLT COUNT & AUTO [id number] 06:42:00 Test Item Value Reference Range Interpretation [...] code = 2801) CT, ABDOMEN - PELVIS, [id number] 14:17:00Reason for exam:- >Evaluation of small bowel [...] lesion demonstrated. Endplate degenerative change at L1-2 alzW54-D5 noted. There is an implanted pump in the right lower quadrant subcutaneous fat with a lead going to the thecal sac terminating at the T11 level. IMPRESSION: Evidence of acute colitis of the sigmoid colon. No small bowel enteritis demonstrated. No stricture, fistula, or intramesenteric abscess demonstrated. Signed: Ervin Johnson MDReport Verified Date/Time: 07/08/2018 14:17:31 Reading Location: [facility] C013X [facility] Consult Reading Room BAPSYCHIATRIC METABOLIC [id number] 06:53:00 Test Item Value Reference Range Interpretation [...] PATIEN TS. CBC W/PLT COUNT & AUTO [id number] 06:25:00 Test Item Value Reference Range Interpretation [...] (BEAKER) (test code = 2801) SHIGA TOXIN [id number] 13:53:00 Test Item Value Reference Range Interpretation Comments SHIGA TOXIN 1 (BEAKER) (test Not detected Not detected code = 2177) SHIGA TOXIN 2 (BEAKER) (test Not detected Not detected code = 2179) C. DIFFICILE GDH [id number] 13:28:00 Test Item Value Reference Range Interpretation Comments CDT TOXIN (test code Negative Negative = 7519523988) CDT GDH ANTIGEN (test Negative Negative No ind ication of code = [id number]) Clostridi um difficile infection and n o colonization. Discontinue ent leon isolation and t herapy. Testing performed by Targeted Growth Rapid Cassette Assay. For GDH, published sensitivity of the assay is 98.7% compared to cytotoxicity testing. For Toxin AB, published sensitivity is 87.8% and specificity 99.4% compared to cytotoxicity testing.Verification of kit performance was done by the [facility] Microbiology Lab prior to clinical use.STOOL PATH [id number] 10:17:00 Test Item Value Reference Range Interpretation Comments PATHOGEN EXAM CHARGED (BEAKER) (test Done code = 2381) BASIC METABOLIC [id number] 05:17:00 Test Item Value Reference Range Interpretation [...] PATIEN TS. CBC W/PLT COUNT & AUTO [id number] 04:58:00 Test Item Value Reference Range Interpretation [...] = 2801) RAD, CHEST, 1 VIEW, NON [id number] 14:21:00Reason for exam:->FeverShould this be performed at the bedside?->YesFINAL REPORT TECHNIQUE: Frontal chest radiograph dated 07/06/2018. CLINICAL HISTORY: Fever COMPARISON STUDY: None IMPRESSION:Lungs are clear. No pleural effusion or pneumothorax. Cardiomediastinal silhouette is normal in size. No pulmonary edema. No fracture. Signed: Xiao Mckinney MDReport Verified Date/Time: 07/06/2018 14:21:04 Reading Location: [facility] Radiology Reading Room D DRUG SCREEN, [id number] 12:52:00 Test Item Value Reference Range Interpretation [...] situations. Chain of custody not maintained. Some kozz-fsv-ogkzfah medications, as well as adulterants, may cause inaccurate results. Clinical correlation should be applied. A more comprehensive drug screen or confirmation of a detected drug may be performed upon request.CBC W/PLT COUNT & AUTO [id number] 12:40:00 Test Item Value Reference Range Interpretation [...] 0-1 PERCENT (BEAKER) (test code = 2801) [id number] 12:12:00 Test Item Value Reference Range Interpretation Comments PHOSPHORUS (BEAKER) (test code = 3.0 mg/dL 2.3-4.7 604) [id number] 12:12:00 Test Item Value Reference Range Interpretation Comments MAGNESIUM (BEAKER) (test code = 2.1 mg/dL 1.6-2.6 627) BASIC METABOLIC [id number] 12:12:00 Test Item Value Reference Range Interpretation [...] APPLICABLE FOR DIALYSIS PATIEN TS. HEPATIC FUNCTION [id number] 12:12:00 Test Item Value Reference Range Interpretation [...] U/L 6-55 347) LACTIC ACID, VENOUS, WHOLE [id number] 12:08:00 Test Item Value Reference Range Interpretation Comments LACTATE BLOOD VENOUS 0.8 mmol/L 0.5-2.2 Specime n moderately (2) (BEAKER) (test hemolyzed code = 2872) URINALYSIS W/ REFLEX URINE [id number] 11:10:00 Test Item Value Reference Range Interpretation [...] 516) SOURCE(BEAKER) (test code = 2795) CHEM [id number] 21:40:00 Test Item Value Reference Range Interpretation Comments eGFR (test code = eGFR) 100 [facility]2017-10-21 21:40:00 Test Item Value Reference Range Interpretation Comments Potassium Lvl (test code = Potassium 3.2 3.5-5.1 Lvl) [facility]2017-10-21 21:40:00 Test Item Value Reference Range Interpretation Comments Sodium Lvl (test code = Sodium Lvl) 145 135-145 [facility]2017-10-21 21:40:00 Test Item Value Reference Range Interpretation Comments Creatinine Lvl (test code = Creatinine 0.73 0.50-1.40 Lvl) [facility]2017-10-21 21:40:00 Test Item Value Reference Range Interpretation Comments Chloride Lvl (test code = Chloride Lvl) 108 95-109 [facility]2017-10-21 21:40:00 Test Item Value Reference Range Interpretation Comments BUN (test code = BUN) 11 7-22 [facility]2017-10-21 21:40:00 Test Item Value Reference Range Interpretation Comments Albumin Lvl (test code = Albumin Lvl) 4.0 3.5-5.0 [facility]2017-10-21 21:40:00 Test Item Value Reference Range Interpretation Comments Total Protein (test code = Total 7.2 6.4-8.4 Protein) [facility]2017-10-21 21:40:00 Test Item Value Reference Range Interpretation Comments Calcium Lvl (test code = Calcium Lvl) 8.2 8.5-10.5 [facility]2017-10-21 21:40:00 Test Item Value Reference Range Interpretation Comments ALT (test code = ALT) 21 See_Comment [Auto mated message] The system which ge nerated this result transmit francine reference range : <=65. The reference range was not used to interpr et this result as angel l/abnormal. [facility]2017-10-21 21:40:00 Test Item Value Reference Range Interpretation Comments CO2 (test code = CO2) 28 24-32 [facility]2017-10-21 21:40:00 Test Item Value Reference Range Interpretation Comments Bili Total (test code = Bili Total) 0.5 0.2-1.3 [facility]2017-10-21 21:40:00 Test Item Value Reference Range Interpretation Comments Alk Phos (test code = Alk Phos) 54 39-136 [facility]2017-10-21 21:40:00 Test Item Value Reference Range Interpretation Comments AST (test code = AST) 12 See_Comment [Auto mated message] The system which ge nerated this result transmit francine reference range : <=37. The reference range was not used to interpr et this result as angel l/abnormal. [facility]2017-10-21 21:40:00 Test Item Value Reference Range Interpretation Comments Glucose Lvl (test code = Glucose Lvl) 98 70-99 [facility]2017-10-21 21:40:00 Test Item Value Reference Range Interpretation Comments Globulin (test code = Globulin) 3.2 2.7-4.2 [facility]2017-10-21 21:40:00 Test Item Value Reference Range Interpretation Comments A/G Ratio (test code = A/G Ratio) 1.2 0.7-1.6 [facility]2017-10-21 21:40:00 Test Item Value Reference Range Interpretation Comments AGAP (test code = AGAP) 12.2 10.0-20.0 [facility]2017-10-21 21:40:00 Test Item Value Reference Range Interpretation Comments B/C Ratio (test code = B/C Ratio) 15 6-25 [facility]2017-10-21 21:40:00 Test Item Value Reference Range Interpretation Comments Lipase Lvl (test code = Lipase Lvl) 178 73-393 [id number] 21:40:00 Test Item Value Reference Range Interpretation Comments Basophils # (test code 0.0 See_Comment [Aut omated message] The = Basophils #) system which generated this result tra nsmitted reference range : <=0.2. The reference r markus was not used to int erpret this result as normal/abnormal . [id number] 21:40:00 Test Item Value Reference Range Interpretation Comments Monocytes # (test code 0.5 See_Comment [Aut omated message] The = Monocytes #) system which generated this result tra nsmitted reference range : <=0.8. The reference r markus was not used to int erpret this result as normal/abnormal . [facility]wallMvxdmidFLHTSPJFED6915-73-46 21:40:00 Test Item Value Reference Range Interpretation Comments Eosinophils # (test code 0.2 See_Comment [A utomated message] The = Eosinophils #) system whic h generated this result tra nsmitted reference range : <=0.5. The reference r markus was not used to int erpret this result as normal/abnormal . [id number] 21:40:00 Test Item Value Reference Range Interpretation Comments Segs-Bands # (test code = Segs-Bands #) 6.9 1.5-8.1 [facility]wa[id number] 21:40:00 Test Item Value Reference Range Interpretation Comments Lymphocytes # (test code = Lymphocytes 3.0 1.0-5.5 #) [facility]wallHlhbbblVQBNZZNTJQ6826-27-30 21:40:00 Test Item Value Reference Range Interpretation Comments Basophils (test code = 0.4 See_Comment [Aut omated message] The Basophils) system which ge nerated this result tra nsmitted reference range : <=1.0. The reference r markus was not used to int erpret this result as normal/abnormal . [id number] 21:40:00 Test Item Value Reference Range Interpretation Comments Lymphocytes (test code = Lymphocytes) 28.1 20.0-40.0 [facility] R[id number] 21:40:00 Test Item Value Reference Range Interpretation Comments Monocytes (test code = Monocytes) 4.9 2.0-12.0 [id number] 21:40:00 Test Item Value Reference Range Interpretation Comments Eosinophils (test code = 1.6 See_Comment [A utomated message] The Eosinophils) system which ge nerated this result tra nsmitted reference range : <=4.0. The reference r markus was not used to int erpret this result as normal/abnormal . [id number] 21:40:00 Test Item Value Reference Range Interpretation Comments Segs (test code = Segs) 65.0 45.0-75.0 [facility] RockwallOveuyvkWFHALWDRLD1103-57-73 21:40:00 Test Item Value Reference Range Interpretation Comments Platelet (test code = Platelet) 342 133-450 [facility] RockwallNsjagfgJEGHPWZXAV8967-36-22 21:40:00 Test Item Value Reference Range Interpretation Comments MPV (test code = MPV) 6.9 7.4-10.4 [facility] Rockwa[id number] 21:40:00 Test Item Value Reference Range Interpretation Comments Hgb (test code = Hgb) 13.8 12.0-16.0 [facility] RockwallQjkzihiHADDKTWDLM9263-93-40 21:40:00 Test Item Value Reference Range Interpretation Comments Hct (test code = Hct) 41.9 36.0-48.0 [facility]wallCkdqjwtQPHTUEIBPQ9771-86-08 21:40:00 Test Item Value Reference Range Interpretation Comments MCV (test code = MCV) 95.4 80.0-98.0 [facility] RockwallHspzrczXUWAYFXIGV0615-09-20 21:40:00 Test Item Value Reference Range Interpretation Comments MCH (test code = MCH) 31.4 pg 27.0-31.0 [facility] RockwallJbicvptQARRVFELBA3418-51-07 21:40:00 Test Item Value Reference Range Interpretation Comments MCHC (test code = MCHC) 32.9 32.0-36.0 [facility]wa[id number] 21:40:00 Test Item Value Reference Range Interpretation Comments RDW (test code = RDW) 14.0 11.5-14.5 [facility] Rockwa[id number] 21:40:00 Test Item Value Reference Range Interpretation Comments WBC (test code = WBC) 10.6 3.7-10.4 [facility]wallXunvdwkNKGDVKMFXE2711-42-27 21:40:00 Test Item Value Reference Range Interpretation Comments RBC (test code = RBC) 4.39 4.20-5.40 [facility] [id number] 21:40:00 Test Item Value Reference Range Interpretation Comments UA Urobilinogen (test code = UA <=1.0 mg/dL 0.1-1.0 Urobilinogen) [facility] [id number] 21:40:00 Test Item Value Reference Range Interpretation Comments UA WBC (test code = 4 See_Comment [Automa francine message] The UA WBC) system which ge nerated this result transmit francine reference range : <=5. The reference range was not used to interpr et this result as angel l/abnormal. [facility] [id number] 21:40:00 Test Item Value Reference Range Interpretation Comments UA RBC (test code = 6 See_Comment [Automa francine message] The UA RBC) system which ge nerated this result transmit francine reference range : <=2. The reference range was not used to interpr et this result as angel l/abnormal. [facility] [id number] 21:40:00 Test Item Value Reference Range Interpretation Comments UA Mucus (test code = UA Mucus) Many /LPF [facility] [id number] 21:40:00 Test Item Value Reference Range Interpretation Comments UA pH (test code = UA pH) 5.0 5.0-8.0 [facility] [id number] 21:40:00 Test Item Value Reference Range Interpretation Comments UA Protein (test code = UA Protein) 30 mg/dL [facility] [id number] 21:40:00 Test Item Value Reference Range Interpretation Comments UA Glucose (test code = UA Negative mg/dL Glucose) [facility] [id number] 21:40:00 Test Item Value Reference Range Interpretation Comments UA Ketones (test code = UA Ketones) 20 mg/dL [facility] [id number] 21:40:00 Test Item Value Reference Range Interpretation Comments UA Blood (test code = Negative (02/18/17 4:40 UA Blood) PM) [facility] [id number] 21:40:00 Test Item Value Reference Range Interpretation Comments UA Nitrite (test code Negative (02/18/17 4:40 = UA Nitrite) PM) [facility] [id number] 21:40:00 Test Item Value Reference Range Interpretation Comments UA Bili (test code = Negative *NA*(02/18/17 UA Bili) 4:40 PM) [facility] [id number] 21:40:00 Test Item Value Reference Range Interpretation Comments UA Color (test code = Dark Yellow UA Color) *NA*(02/18/17 4:40 PM) [facility] [id number] 21:40:00 Test Item Value Reference Range Interpretation Comments UA Turbidity (test code Slight *ABN*(02/18/17 = UA Turbidity) 4:40 PM) [facility] [id number] 21:40:00 Test Item Value Reference Range Interpretation Comments UA Spec Grav (test code = UA Spec Grav) 1.024 [facility] [id number] 21:40:00 Test Item Value Reference Range Interpretation Comments UA Sq Epi (test code = UA Sq Occasional /LPF Epi) [facility] [id number] 21:40:00 Test Item Value Reference Range Interpretation Comments UA Leuk Est (test Negative (02/18/17 4:40 code = UA Leuk Est) PM) [facility] [id number] 10:52:00 Test Item Value Reference Range Interpretation Comments Phosphorus (test code = Phosphorus) 2.7 2.5-4.5 [facility] [id number] 10:52:00 Test Item Value Reference Range Interpretation Comments Magnesium Lvl (test code = Magnesium 2.2 1.8-2.4 Lvl) [facility]tk[facility]rugISLTYJDBLXTO3416-90-54 10:52:00 Test Item Value Reference Range Interpretation Comments Chloride Lvl (test code = Chloride Lvl) 109 95-109 [facility] RegionXgqeebhRNGASOYVWTYI8692-97-55 10:52:00 Test Item Value Reference Range Interpretation Comments Calcium Lvl (test code = Calcium Lvl) 8.3 8.5-10.5 [facility] RegionThoacltCZBLXQEFGPND1995-83-35 10:52:00 Test Item Value Reference Range Interpretation Comments AGAP (test code = AGAP) 10.6 10.0-20.0 [facility] RegionOhjqzonNUQPMRPHIIMK1309-99-50 10:52:00 Test Item Value Reference Range Interpretation Comments Glucose Lvl (test code = Glucose Lvl) 88 70-99 [facility] RegionShfnxegCFHQHEFMNFPD9215-43-37 10:52:00 Test Item Value Reference Range Interpretation Comments Sodium Lvl (test code = Sodium Lvl) 144 135-145 [facility] RegionSwxjpilZMFSFMQTYRXF6021-75-54 10:52:00 Test Item Value Reference Range Interpretation Comments Potassium Lvl (test code = Potassium 3.6 3.5-5.1 Lvl) [facility] RegionBlwobirZJHUKLGWCNYW4661-73-98 10:52:00 Test Item Value Reference Range Interpretation Comments BUN (test code = BUN) 6 - [facility] RegionAxcqbkrUVJLWGZTEJVS2892-60-84 10:52:00 Test Item Value Reference Range Interpretation Comments Creatinine Lvl (test code = Creatinine 0.61 0.50-1.40 Lvl) [facility] RegionYblakdxTTFADLHKRETE4990-38-74 10:52:00 Test Item Value Reference Range Interpretation Comments CO2 (test code = CO2) 28 - [facility] RegionHcsggpzTWJXHVXKPAMS8025-52-49 10:52:00 Test Item Value Reference Range Interpretation Comments eGFR (test code = eGFR) 110 [facility]2017-06-12 09:37:00 Test Item Value Reference Range Interpretation Comments eGFR (test code = eGFR) 110 [facility]2017-06-12 09:37:00 Test Item Value Reference Range Interpretation Comments Sodium Lvl (test code = Sodium Lvl) 140 135-145 [facility]2017-06-12 09:37:00 Test Item Value Reference Range Interpretation Comments Creatinine Lvl (test code = Creatinine 0.61 0.50-1.40 Lvl) [facility]2017-06-12 09:37:00 Test Item Value Reference Range Interpretation Comments Chloride Lvl (test code = Chloride Lvl) 106 95-109 [facility]2017-06-12 09:37:00 Test Item Value Reference Range Interpretation Comments Potassium Lvl (test code = Potassium 3.7 3.5-5.1 Lvl) [facility]2017-06-12 09:37:00 Test Item Value Reference Range Interpretation Comments CO2 (test code = CO2) 31 - [facility]2017-06-12 09:37:00 Test Item Value Reference Range Interpretation Comments Calcium Lvl (test code = Calcium Lvl) 8.4 8.5-10.5 [facility]2017-06-12 09:37:00 Test Item Value Reference Range Interpretation Comments AGAP (test code = AGAP) 6.7 10.0-20.0 [facility]2017-06-12 09:37:00 Test Item Value Reference Range Interpretation Comments BUN (test code = BUN) 9 -22 [facility]2017-06-12 09:37:00 Test Item Value Reference Range Interpretation Comments Glucose Lvl (test code = Glucose Lvl) 98 70-99 [facility]wallAxaqapjAAZBVVUKGL4830-79-71 09:37:00 Test Item Value Reference Range Interpretation Comments Hgb (test code = Hgb) 11.8 12.0-16.0 [facility]wallJdkxqrrDDWRWTGUYD1139-57-41 09:37:00 Test Item Value Reference Range Interpretation Comments WBC (test code = WBC) 8.0 3.7-10.4 [facility] RockwallFibcooiSEAALGNYZX8924-40-96 09:37:00 Test Item Value Reference Range Interpretation Comments MCH (test code = MCH) 30.2 pg 27.0-31.0 [facility] RockwallGshltooGLEMJRGQWW4924-70-56 09:37:00 Test Item Value Reference Range Interpretation Comments RBC (test code = RBC) 3.90 4.20-5.40 [facility] RockwallGtsyzayMRWPYIYTWI1797-21-29 09:37:00 Test Item Value Reference Range Interpretation Comments Hct (test code = Hct) 36.5 36.0-48.0 [facility]NaihjjzKQYJHAOZEE3606-53-28 09:37:00 Test Item Value Reference Range Interpretation Comments MCV (test code = MCV) 93.6 80.0-98.0 [facility]wallUammjahWEQYNYYCJN4952-20-41 09:37:00 Test Item Value Reference Range Interpretation Comments RDW (test code = RDW) 14.7 11.5-14.5 [facility]wallQabfemmGEVPWRHHQQ8923-94-55 09:37:00 Test Item Value Reference Range Interpretation Comments MPV (test code = MPV) 6.6 7.4-10.4 [facility]wallOlbweuoIPQRKPLCRS0274-00-00 09:37:00 Test Item Value Reference Range Interpretation Comments MCHC (test code = MCHC) 32.3 32.0-36.0 [facility]wallJwoubrsVMHDNNPRAA7075-24-57 09:37:00 Test Item Value Reference Range Interpretation Comments Platelet (test code = Platelet) 290 133-450 [facility]wallIwrtgeqMZFJLMXUVN3623-37-18 09:37:00 Test Item Value Reference Range Interpretation Comments Basophils # (test code 0.0 See_Comment [Aut omated message] The = Basophils #) system which generated this result tra nsmitted reference range : <=0.2. The reference r markus was not used to int erpret this result as normal/abnormal . [facility]wallNqlvxpbHYRFHKCHPX5788-64-05 09:37:00 Test Item Value Reference Range Interpretation Comments Monocytes (test code = Monocytes) 5.3 2.0-12.0 [facility] RockwallZzhxjdoEGDOCTZOKC7142-23-11 09:37:00 Test Item Value Reference Range Interpretation Comments Lymphocytes (test code = Lymphocytes) 28.2 20.0-40.0 [facility]wallSutzzbpTSEQPYDOTC1367-93-48 09:37:00 Test Item Value Reference Range Interpretation Comments Segs (test code = Segs) 64.9 45.0-75.0 [facility]wallSvecqfmTQLTXNUTNA4496-71-92 09:37:00 Test Item Value Reference Range Interpretation Comments Eosinophils (test code = 1.4 See_Comment [A utomated message] The Eosinophils) system which ge nerated this result tra nsmitted reference range : <=4.0. The reference r markus was not used to int erpret this result as normal/abnormal . [facility]wallQxebjijRNJYTPOMVC3867-77-97 09:37:00 Test Item Value Reference Range Interpretation Comments Basophils (test code = 0.2 See_Comment [Aut omated message] The Basophils) system which ge nerated this result tra nsmitted reference range : <=1.0. The reference r markus was not used to int erpret this result as normal/abnormal . [facility]wallMsskctuFRDNCSHMVR7850-10-33 09:37:00 Test Item Value Reference Range Interpretation Comments Lymphocytes # (test code = Lymphocytes 2.3 1.0-5.5 #) [facility]wallExhfviiTEOPZOPXKJ1444-09-41 09:37:00 Test Item Value Reference Range Interpretation Comments Eosinophils # (test code 0.1 See_Comment [A utomated message] The = Eosinophils #) system ic h generated this result tra nsmitted reference range : <=0.5. The reference r markus was not used to int erpret this result as normal/abnormal . [facility]wallNjpvbteDYTFEOUFNM3756-64-99 09:37:00 Test Item Value Reference Range Interpretation Comments Segs-Bands # (test code = Segs-Bands #) 5.2 1.5-8.1 [facility] RockwallBumruktFLBOXQJSGP7024-16-14 09:37:00 Test Item Value Reference Range Interpretation Comments Monocytes # (test code 0.4 See_Comment [Aut omated message] The = Monocytes #) system which generated this result tra nsmitted reference range : <=0.8. The reference r markus was not used to int erpret this result as normal/abnormal . [facility] EVKYJASBLQ5256-17-16 08:26:00 Test Item Value Reference Range Interpretation Comments C difficile DNA (test Positive code = C difficile DNA) 1*ABN*(10/10/16 3:26 AM) [facility] AND [id number] 08:26:00 Test Item Value Reference Range Interpretation Comments Fecal Leukocyte (test None Seen (10/10/16 code = Fecal Leukocyte) 3:26 AM) [facility] AND [id number] 04:11:00 Test Item Value Reference Range Interpretation Comments UA Nitrite (test code Negative (10/09/16 11:11 = UA Nitrite) PM) [facility] AND [id number] 04:11:00 Test Item Value Reference Range Interpretation Comments UA Sq Epi (test code = UA Sq Occasional /LPF Epi) [facility] AND [id number] 04:11:00 Test Item Value Reference Range Interpretation Comments UA RBC (test code = 2 See_Comment [Automa francine message] The UA RBC) system which ge nerated this result transmit francine reference range : <=2. The reference range was not used to interpr et this result as angel l/abnormal. [facility] AND [id number] 04:11:00 Test Item Value Reference Range Interpretation Comments UA Mucus (test code = UA Mucus) Few /LPF [facility] AND [id number] 04:11:00 Test Item Value Reference Range Interpretation Comments UA Hyal Cast (test 4 See_Comment [Automat ed message] The code = UA Hyal Cast) system which generated this result transmit francine reference range : <=2. The reference range was not used to interpr et this result as angel l/abnormal. [facility] AND [id number] 04:11:00 Test Item Value Reference Range Interpretation Comments UA Amorph Priti (test code = Occasional /HPF UA Amorph Priti) [facility] AND [id number] 04:11:00 Test Item Value Reference Range Interpretation Comments UA Turbidity (test code Marked *ABN*(10/09/16 = UA Turbidity) 11:11 PM) [facility] AND [id number] 04:11:00 Test Item Value Reference Range Interpretation Comments UA Color (test code = Dark Yellow UA Color) *NA*(10/09/16 11:11 PM) [facility] AND [id number] 04:11:00 Test Item Value Reference Range Interpretation Comments UA pH (test code = UA pH) 8.0 5.0-8.0 [facility] [id number] 04:11:00 Test Item Value Reference Range Interpretation Comments UA Glucose (test code = UA Negative mg/dL Glucose) [facility] [id number] 04:11:00 Test Item Value Reference Range Interpretation Comments UA Protein (test code = UA Protein) 100 mg/dL [facility]2017-06-12 04:11:00 Test Item Value Reference Range Interpretation Comments B/C Ratio (test code = B/C Ratio) 13 -25 [facility]2017-06-12 04:11:00 Test Item Value Reference Range Interpretation Comments AGAP (test code = AGAP) 10.6 10.0-20.0 [facility]2017-06-12 04:11:00 Test Item Value Reference Range Interpretation Comments Globulin (test code = Globulin) 3.7 2.7-4.2 [facility]2017-06-12 04:11:00 Test Item Value Reference Range Interpretation Comments A/G Ratio (test code = A/G Ratio) 1.1 0.7-1.6 [facility]2017-06-12 04:11:00 Test Item Value Reference Range Interpretation Comments Bili Total (test code = Bili Total) 0.2 0.2-1.3 [facility]2017-06-12 04:11:00 Test Item Value Reference Range Interpretation Comments AST (test code = AST) 13 See_Comment [Auto mated message] The system which ge nerated this result transmit francine reference range : <=37. The reference range was not used to interpr et this result as angel l/abnormal. [facility]2017-06-12 04:11:00 Test Item Value Reference Range Interpretation Comments Alk Phos (test code = Alk Phos) 110 39-136 [facility]2017-06-12 04:11:00 Test Item Value Reference Range Interpretation Comments eGFR (test code = eGFR) 82 [facility]2017-06-12 04:11:00 Test Item Value Reference Range Interpretation Comments Creatinine Lvl (test code = Creatinine 0.86 0.50-1.40 Lvl) [facility]2017-06-12 04:11:00 Test Item Value Reference Range Interpretation Comments CO2 (test code = CO2) 34 24-32 [facility]2017-06-12 04:11:00 Test Item Value Reference Range Interpretation Comments Calcium Lvl (test code = Calcium Lvl) 9.5 8.5-10.5 [facility]2017-06-12 04:11:00 Test Item Value Reference Range Interpretation Comments Glucose Lvl (test code = Glucose Lvl) 125 70-99 [facility]2017-06-12 04:11:00 Test Item Value Reference Range Interpretation Comments BUN (test code = BUN) 11 7-22 [facility]2017-06-12 04:11:00 Test Item Value Reference Range Interpretation Comments Potassium Lvl (test code = Potassium 3.6 3.5-5.1 Lvl) [facility]2017-06-12 04:11:00 Test Item Value Reference Range Interpretation Comments Sodium Lvl (test code = Sodium Lvl) 140 135-145 [facility]2017-06-12 04:11:00 Test Item Value Reference Range Interpretation Comments Chloride Lvl (test code = Chloride Lvl) 99 95-109 [facility]2017-06-12 04:11:00 Test Item Value Reference Range Interpretation Comments Total Protein (test code = Total 7.8 6.4-8.4 Protein) [facility]2017-06-12 04:11:00 Test Item Value Reference Range Interpretation Comments Albumin Lvl (test code = Albumin Lvl) 4.1 3.5-5.0 [place] [id number] 04:11:00 Test Item Value Reference Range Interpretation Comments ALT (test code = ALT) 18 See_Comment [Auto mated message] The system which ge nerated this result transmit francine reference range : <=65. The reference range was not used to interpr et this result as angel l/abnormal. [place] [id number] 04:11:00 Test Item Value Reference Range Interpretation Comments hCG Tot (test code = hCG Tot) no gt [facility]wallDibwporGZXVNBGNJB5558-80-06 04:11:00 Test Item Value Reference Range Interpretation Comments Segs-Bands # (test code = Segs-Bands #) 7.5 1.5-8.1 [facility]wallYkwyzsiUXRTOTMZQB8395-69-40 04:11:00 Test Item Value Reference Range Interpretation Comments Segs (test code = Segs) 67.9 45.0-75.0 [facility]wallMnnjaefSDFGKAJPUO9320-29-55 04:11:00 Test Item Value Reference Range Interpretation Comments Eosinophils (test code = 1.4 See_Comment [A utomated message] The Eosinophils) system which ge nerated this result tra nsmitted reference range : <=4.0. The reference r markus was not used to int erpret this result as normal/abnormal . [facility]wallHtyjhcpQLCBWEJFOU9779-39-81 04:11:00 Test Item Value Reference Range Interpretation Comments Monocytes (test code = Monocytes) 4.5 2.0-12.0 [facility]wallPwxcpjkZKEZCKQKHJ4899-55-39 04:11:00 Test Item Value Reference Range Interpretation Comments Basophils (test code = 0.3 See_Comment [Aut omated message] The Basophils) system which ge nerated this result tra nsmitted reference range : <=1.0. The reference r markus was not used to int erpret this result as normal/abnormal . [facility]wallOeibkmdUOSYUSLPFW2866-68-03 04:11:00 Test Item Value Reference Range Interpretation Comments Lymphocytes (test code = Lymphocytes) 25.9 20.0-40.0 [facility]wallNlugvbeVMWYLGDDCF6810-26-54 04:11:00 Test Item Value Reference Range Interpretation Comments Eosinophils # (test code 0.2 See_Comment [A utomated message] The = Eosinophils #) system whic h generated this result tra nsmitted reference range : <=0.5. The reference r markus was not used to int erpret this result as normal/abnormal . [facility]wallSlzarscEKUKRRQADP3110-98-04 04:11:00 Test Item Value Reference Range Interpretation Comments Lymphocytes # (test code = Lymphocytes 2.9 1.0-5.5 #) [facility]wallNoefcopBCSOOHKVVM8399-62-92 04:11:00 Test Item Value Reference Range Interpretation Comments Monocytes # (test code 0.5 See_Comment [Aut omated message] The = Monocytes #) system which generated this result tra nsmitted reference range : <=0.8. The reference r markus was not used to int erpret this result as normal/abnormal . [facility]wallWjqddmqPHJDKBBTUJ9174-34-24 04:11:00 Test Item Value Reference Range Interpretation Comments Basophils # (test code 0.0 See_Comment [Aut omated message] The = Basophils #) system which generated this result tra nsmitted reference range : <=0.2. The reference r markus was not used to int erpret this result as normal/abnormal . [facility]wallOtvdqtsMWZKCDIQCT2782-69-34 04:11:00 Test Item Value Reference Range Interpretation Comments MCHC (test code = MCHC) 32.7 32.0-36.0 [id number] 04:11:00 Test Item Value Reference Range Interpretation Comments MCH (test code = MCH) 30.5 pg 27.0-31.0 [facility]wallIqqcvngHFFXOZJCAM8028-75-00 04:11:00 Test Item Value Reference Range Interpretation Comments RBC (test code = RBC) 4.68 4.20-5.40 [facility]wallFoblkttHPETIGYOHA1708-37-77 04:11:00 Test Item Value Reference Range Interpretation Comments WBC (test code = WBC) 11.1 3.7-10.4 [facility]wallHcomwevXDBURBWZOV5555-73-44 04:11:00 Test Item Value Reference Range Interpretation Comments MCV (test code = MCV) 93.4 80.0-98.0 [facility]wallFbttlzgLJAZTLYPPV3986-49-47 04:11:00 Test Item Value Reference Range Interpretation Comments Hgb (test code = Hgb) 14.3 12.0-16.0 [facility]wallVlauraiETRNSBLLKZ1852-01-82 04:11:00 Test Item Value Reference Range Interpretation Comments Hct (test code = Hct) 43.7 36.0-48.0 [facility]wallIpilhfcCLVNHWIMMY8238-64-95 04:11:00 Test Item Value Reference Range Interpretation Comments Platelet (test code = Platelet) 396 133-450 [facility]wallYpgvnifVORBHPVFZK5180-45-30 04:11:00 Test Item Value Reference Range Interpretation Comments RDW (test code = RDW) 14.9 11.5-14.5 [facility]KLRBLDLSLO3909-[facility]-22 04:11:00 Test Item Value Reference Range Interpretation Comments MPV (test code = MPV) 7.0 7.4-10.4 [facility] [id number] 04:11:00 Test Item Value Reference Range Interpretation Comments UA Spec Grav (test code = UA Spec Grav) 1.020 [facility] [id number] 04:11:00 Test Item Value Reference Range Interpretation Comments UA Urobilinogen (test code = UA <=1.0 mg/dL 0.1-1.0 Urobilinogen) [facility] [id number] 04:11:00 Test Item Value Reference Range Interpretation Comments UA Trans Epi (test code = UA Trans Epi) 4 [facility] [id number] 04:11:00 Test Item Value Reference Range Interpretation Comments UA Leuk Est (test Negative (10/09/16 11:11 code = UA Leuk Est) PM) [facility] [id number] 04:11:00 Test Item Value Reference Range Interpretation Comments UA Ketones (test code = UA Negative mg/dL Ketones) [facility] [id number] 04:11:00 Test Item Value Reference Range Interpretation Comments UA Blood (test code = Negative (10/09/16 11:11 UA Blood) PM) [facility] [id number] 04:11:00 Test Item Value Reference Range Interpretation Comments UA Bili (test code = Negative *NA*(10/09/16 UA Bili) 11:11 PM) [facility] [id number] 14:26:[address] [id number] IMAGING REPORTPat ient Name: Manuel DEL TORO of Service: [id number]: 45 Sex: F Order #: [id number] Room: ERSDOB: 1970 X-Ray Number: [id number] Record Number: [id number] Hospital Number: [id number] Physician: KISHAN MUNOZ -Ordering Physician: HERNANDEZ MONTEMAYOR [...] authenticated by TIFFANIE Espinosa 2016-07-26 14:23:48CT ABDOMEN/PELVIS [id number] 02:49:00[address]IAGNOSTIC IMAGING REPORTPatient Name: Manuel DEL TORO of Service: [id number]: 45 Sex: F Order #: [id number] Room: [facility]/ A 2NEDOB: 1970 X-Ray Number: [id number] Record Number: [id number] Hospital Number: [id number] Physician: BLAKE ALLEN -Ordering Physician: AURORA LOWERY [...] MARTINEZ VALDEZ 2016-07-17 02:47:19ABDOMEN 2 VIEWS 2016-07-15 12:14:[address] [id number] IMAGING REPORTPatient Name: Manuel DEL TORO of Service: [id number]: 45 Sex: F Order #: 500 Room: [facility]: 1970 X-Ray Number: [id number] Record Number: [id number] Hospital Number: [id number] Physician: [place] TEJEDA Physician: Elvis GARCIA 2 [...] 12:12 PMLegally authenticated by RAFA GALVAN 2016-07-15 12:12:28[facility] [id number] 19:01:00 Test Item Value Reference Range Interpretation Comments Lactic Acid Lvl (test code = Lactic 2.1 0.5-2.2 Acid Lvl) [place] [id number] 19:01:00 Test Item Value Reference Range Interpretation Comments eGFR (test code = eGFR) 97 [place] [id number] 19:01:00 Test Item Value Reference Range Interpretation Comments Bili Total (test code = Bili Total) 0.3 0.2-1.3 [place] [id number] 19:01:00 Test Item Value Reference Range Interpretation Comments Alk Phos (test code = Alk Phos) 98 39-136 [place] [id number] 19:01:00 Test Item Value Reference Range Interpretation Comments AST (test code = AST) 24 See_Comment [Auto mated message] The system which ge nerated this result transmit francine reference range : <=37. The reference range was not used to interpr et this result as angel l/abnormal. [place] [id number] 19:01:00 Test Item Value Reference Range Interpretation Comments ALT (test code = ALT) 24 See_Comment [Auto mated message] The system which ge nerated this result transmit francine reference range : <=65. The reference range was not used to interpr et this result as angel l/abnormal. [place] [id number] 19:01:00 Test Item Value Reference Range Interpretation Comments Potassium Lvl (test code = Potassium 4.3 3.5-5.1 Lvl) [facility]2016-10-12 19:01:00 Test Item Value Reference Range Interpretation Comments Creatinine Lvl (test code = Creatinine 0.75 0.50-1.40 Lvl) [place] [id number] 19:01:00 Test Item Value Reference Range Interpretation Comments Sodium Lvl (test code = Sodium Lvl) 137 135-145 [place] [id number] 19:01:00 Test Item Value Reference Range Interpretation Comments Glucose Lvl (test code = Glucose Lvl) 91 70-99 [place] [id number] 19:01:00 Test Item Value Reference Range Interpretation Comments BUN (test code = BUN) 8 7-22 [facility]2016-10-12 19:01:00 Test Item Value Reference Range Interpretation Comments Albumin Lvl (test code = Albumin Lvl) 3.2 3.5-5.0 [facility]2016-10-12 19:01:00 Test Item Value Reference Range Interpretation Comments Total Protein (test code = Total 7.6 6.4-8.4 Protein) [facility]2016-10-12 19:01:00 Test Item Value Reference Range Interpretation Comments CO2 (test code = CO2) 26 24-32 [facility]2016-10-12 19:01:00 Test Item Value Reference Range Interpretation Comments Calcium Lvl (test code = Calcium Lvl) 8.4 8.5-10.5 [facility]2016-10-12 19:01:00 Test Item Value Reference Range Interpretation Comments Chloride Lvl (test code = Chloride Lvl) 104 95-109 [facility]2016-10-12 19:01:00 Test Item Value Reference Range Interpretation Comments AGAP (test code = AGAP) 11.3 10.0-20.0 [facility]2016-10-12 19:01:00 Test Item Value Reference Range Interpretation Comments A/G Ratio (test code = A/G Ratio) 0.7 0.7-1.6 [facility]2016-10-12 19:01:00 Test Item Value Reference Range Interpretation Comments Globulin (test code = Globulin) 4.4 2.7-4.2 [facility]2016-10-12 19:01:00 Test Item Value Reference Range Interpretation Comments B/C Ratio (test code = B/C Ratio) 11 6-25 [facility]wallGljzrouOHEIBXOKTT2183-39-50 19:01:00 Test Item Value Reference Range Interpretation Comments MPV (test code = MPV) 7.0 7.4-10.4 [facility]wallJzhurexVSFMEUWRBP1687-27-56 19:01:00 Test Item Value Reference Range Interpretation Comments Platelet (test code = Platelet) 340 133-450 [facility]wallHaozqpxBMBYFZSIVK4057-17-02 19:01:00 Test Item Value Reference Range Interpretation Comments RDW (test code = RDW) 13.9 11.5-14.5 [facility]wallOmazykyFQYLYBZGML0892-43-33 19:01:00 Test Item Value Reference Range Interpretation Comments MCH (test code = MCH) 30.2 pg 27.0-31.0 [facility]wallFqtxptsXHOFHPXBLJ3440-08-64 19:01:00 Test Item Value Reference Range Interpretation Comments MCHC (test code = MCHC) 33.4 32.0-36.0 [facility]wallXrcshbqUTYIIBYGCL0582-52-19 19:01:00 Test Item Value Reference Range Interpretation Comments WBC (test code = WBC) 11.0 3.7-10.4 [facility]wallCvdihqlTWQRLHJPGH8609-21-89 19:01:00 Test Item Value Reference Range Interpretation Comments MCV (test code = MCV) 90.4 80.0-98.0 [facility]wallJfdxqrzEFDJBOYCMT9678-04-39 19:01:00 Test Item Value Reference Range Interpretation Comments Hct (test code = Hct) 43.3 36.0-48.0 [facility]wallXufjfbjFYARDVFRMQ6756-36-50 19:01:00 Test Item Value Reference Range Interpretation Comments Hgb (test code = Hgb) 14.5 12.0-16.0 [facility]wallNwmqnobMURLZIRMHR8467-22-06 19:01:00 Test Item Value Reference Range Interpretation Comments RBC (test code = RBC) 4.79 4.20-5.40 [facility] RockwallLfunshaSGUTEWLIJU0458-77-23 19:01:00 Test Item Value Reference Range Interpretation Comments Basophils (test code = 0.9 See_Comment [Aut omated message] The Basophils) system which ge nerated this result tra nsmitted reference range : <=1.0. The reference r markus was not used to int erpret this result as normal/abnormal . [facility]wallFtpvdkrRTWQORKSKI2306-75-36 19:01:00 Test Item Value Reference Range Interpretation Comments Segs-Bands # (test code = Segs-Bands #) 7.4 1.5-8.1 [facility] RockwallArxiznpNJWUUSASSP9287-07-83 19:01:00 Test Item Value Reference Range Interpretation Comments Eosinophils (test code = 1.6 See_Comment [A utomated message] The Eosinophils) system which ge nerated this result tra nsmitted reference range : <=4.0. The reference r markus was not used to int erpret this result as normal/abnormal . [place] [id number] 19:01:00 Test Item Value Reference Range Interpretation Comments Monocytes (test code = Monocytes) 5.0 2.0-12.0 [facility] RockwallJbbowjoAKTVGMNTDR7801-59-69 19:01:00 Test Item Value Reference Range Interpretation Comments Lymphocytes (test code = Lymphocytes) 25.2 20.0-40.0 [facility]wallYfhnjqvFMXDVWKAQM5930-24-20 19:01:00 Test Item Value Reference Range Interpretation Comments Eosinophils # (test code 0.2 See_Comment [A utomated message] The = Eosinophils #) system whic h generated this result tra nsmitted reference range : <=0.5. The reference r markus was not used to int erpret this result as normal/abnormal . [facility] RockwallKgjdwchMALXEGGGHH4247-71-41 19:01:00 Test Item Value Reference Range Interpretation Comments Basophils # (test code 0.1 See_Comment [Aut omated message] The = Basophils #) system which generated this result tra nsmitted reference range : <=0.2. The reference r markus was not used to int erpret this result as normal/abnormal . [facility] RockwallMxyfvppKELHGPBSGY1856-30-66 19:01:00 Test Item Value Reference Range Interpretation Comments Monocytes # (test code 0.6 See_Comment [Aut omated message] The = Monocytes #) system which generated this result tra nsmitted reference range : <=0.8. The reference r markus was not used to int erpret this result as normal/abnormal . [id number] 19:01:00 Test Item Value Reference Range Interpretation Comments Lymphocytes # (test code = Lymphocytes 2.8 1.0-5.5 #) [id number] 19:01:00 Test Item Value Reference Range Interpretation Comments Segs (test code = Segs) 67.3 45.0-75.0 [facility] [id number] 15:41:00 Test Item Value Reference Range Interpretation Comments UA Sq Epi (test code = UA Sq Epi) Few /LPF [facility] [id number] 15:41:00 Test Item Value Reference Range Interpretation Comments UA WBC (test code = UA WBC) 3-5 /HPF [facility] [id number] 15:41:00 Test Item Value Reference Range Interpretation Comments UA Bacteria (test code = UA Few /HPF Bacteria) [facility] [id number] 15:41:00 Test Item Value Reference Range Interpretation Comments UA RBC (test code = 0-2 /HPF See_Comment [Automa francine message] The UA RBC) system which ge nerated this result tra nsmitted reference range : <=2. The reference range was not used to interpr et this result as angel l/abnormal. [facility] [id number] 15:41:00 Test Item Value Reference Range Interpretation Comments UA Mucus (test code = None Seen (08/13/14 UA Mucus) 10:41 AM) [facility] [id number] 15:41:00 Test Item Value Reference Range Interpretation Comments UA Protein (test code = Trace *ABN*(08/13/14 UA Protein) 10:41 AM) [facility] [id number] 15:41:00 Test Item Value Reference Range Interpretation Comments UA Glucose (test code Negative (08/13/14 10:41 = UA Glucose) AM) [facility] [id number] 15:41:00 Test Item Value Reference Range Interpretation Comments UA Ketones (test code Negative *NA*(08/13/14 = UA Ketones) 10:41 AM) [facility] [id number] 15:41:00 Test Item Value Reference Range Interpretation Comments UA Bili (test code = Negative *NA*(08/13/14 UA Bili) 10:41 AM) [facility] [id number] 15:41:00 Test Item Value Reference Range Interpretation Comments UA Urobilinogen (test code = UA 0.2 0.1-1.0 Urobilinogen) [facility] [id number] 15:41:00 Test Item Value Reference Range Interpretation Comments UA Nitrite (test code Negative (08/13/14 10:41 = UA Nitrite) AM) [facility] [id number] 15:41:00 Test Item Value Reference Range Interpretation Comments UA Leuk Est (test code Small *ABN*(08/13/14 = UA Leuk Est) 10:41 AM) [facility] [id number] 15:41:00 Test Item Value Reference Range Interpretation Comments UA Blood (test code = Negative (08/13/14 10:41 UA Blood) AM) [facility] [id number] 15:41:00 Test Item Value Reference Range Interpretation Comments UA Spec Grav (test >=1.030 *ABN*(08/13/14 code = UA Spec Grav) 10:41 AM) [facility] [id number] 15:41:00 Test Item Value Reference Range Interpretation Comments UA pH (test code = UA pH) 6.0 1 5.0-8.0 [facility] [id number] 15:41:00 Test Item Value Reference Range Interpretation Comments UA Color (test code = Yellow *NA*(08/13/14 UA Color) 10:41 AM) [facility] [id number] 15:41:00 Test Item Value Reference Range Interpretation Comments UA Turbidity (test code = Clear (08/13/14 10:41 UA Turbidity) AM) [facility]2015-04-15 12:37:00 Test Item Value Reference Range Interpretation Comments eGFR (test code = eGFR) 70 [facility]2015-04-15 12:37:00 Test Item Value Reference Range Interpretation Comments Sodium Lvl (test code = Sodium Lvl) 140 135-145 [facility]2015-04-15 12:37:00 Test Item Value Reference Range Interpretation Comments Creatinine Lvl (test code = Creatinine 1.0 0.5-1.4 Lvl) [facility]2015-04-15 12:37:00 Test Item Value Reference Range Interpretation Comments BUN (test code = BUN) 29 7-22 [facility]2015-04-15 12:37:00 Test Item Value Reference Range Interpretation Comments Potassium Lvl (test code = Potassium 2.7 3.5-5.1 Lvl) [facility]2015-04-15 12:37:00 Test Item Value Reference Range Interpretation Comments Glucose Lvl (test code = Glucose Lvl) 64 70-99 [facility]2015-04-15 12:37:00 Test Item Value Reference Range Interpretation Comments Bili Total (test code = Bili Total) 0.7 0.2-1.3 [facility]2015-04-15 12:37:00 Test Item Value Reference Range Interpretation Comments Alk Phos (test code = Alk Phos) 82 39-136 [facility]2015-04-15 12:37:00 Test Item Value Reference Range Interpretation Comments AST (test code = AST) 24 See_Comment [Auto mated message] The system which ge nerated this result transmit francine reference range : <=37. The reference range was not used to interpr et this result as angel l/abnormal. [facility]EqvilibriaATRI[facility] [id number] 12:37:00 Test Item Value Reference Range Interpretation Comments Albumin Lvl (test code = Albumin Lvl) 4.2 3.5-5.0 [facility]EqvilibriaATRI[facility] [id number] 12:37:00 Test Item Value Reference Range Interpretation Comments B/C Ratio (test code = B/C Ratio) 29 6-25 [facility]EqvilibriaATRI[facility] [id number] 12:37:00 Test Item Value Reference Range Interpretation Comments ALT (test code = ALT) 26 See_Comment [Auto mated message] The system which ge nerated this result transmit francine reference range : <=65. The reference range was not used to interpr et this result as angel l/abnormal. [facility] HospitalWitsbits [id number] 12:37:00 Test Item Value Reference Range Interpretation Comments Calcium Lvl (test code = Calcium Lvl) 9.0 8.5-10.5 [facility]2015-04-15 12:37:00 Test Item Value Reference Range Interpretation Comments AGAP (test code = AGAP) 8.7 10.0-20.0 [facility]EqvilibriaAT[facility] [id number] 12:37:00 Test Item Value Reference Range Interpretation Comments CO2 (test code = CO2) 29 24-32 [facility]EqvilibriaATRI[facility] [id number] 12:37:00 Test Item Value Reference Range Interpretation Comments Chloride Lvl (test code = Chloride Lvl) 105 95-109 [facility]2015-04-15 12:37:00 Test Item Value Reference Range Interpretation Comments A/G Ratio (test code = A/G Ratio) 1.2 0.7-1.6 [facility]EqvilibriaATRI[facility] [id number] 12:37:00 Test Item Value Reference Range Interpretation Comments Globulin (test code = Globulin) 3.5 2.0-4.0 [facility]2015-04-15 12:37:00 Test Item Value Reference Range Interpretation Comments Total Protein (test code = Total 7.7 6.4-8.4 Protein) [id number] 12:37:00 Test Item Value Reference Range Interpretation Comments RDW (test code = RDW) 14.1 11.5-14.5 [facility] R[id number] 12:37:00 Test Item Value Reference Range Interpretation Comments MCH (test code = MCH) 30.5 pg 27.0-31.0 [facility] R[id number] 12:37:00 Test Item Value Reference Range Interpretation Comments MCHC (test code = MCHC) 33.3 32.0-36.0 [facility] R[id number] 12:37:00 Test Item Value Reference Range Interpretation Comments MPV (test code = MPV) 6.7 7.4-10.4 [facility] R[id number] 12:37:00 Test Item Value Reference Range Interpretation Comments Platelet (test code = Platelet) 256 133-450 [facility] R[id number] 12:37:00 Test Item Value Reference Range Interpretation Comments MCV (test code = MCV) 91.6 80.0-98.0 [facility] R[id number] 12:37:00 Test Item Value Reference Range Interpretation Comments Hct (test code = Hct) 40.4 36.0-48.0 [facility]wallXmnbffiYAZGLYHLPF4525-07-28 12:37:00 Test Item Value Reference Range Interpretation Comments Hgb (test code = Hgb) 13.4 12.0-16.0 [facility] R[id number] 12:37:00 Test Item Value Reference Range Interpretation Comments WBC (test code = WBC) 8.0 3.7-10.4 [facility] R[id number] 12:37:00 Test Item Value Reference Range Interpretation Comments RBC (test code = RBC) 4.41 4.20-5.40 [facility] RockwallIzosvhrOBGKWTUWHX2217-30-81 12:37:00 Test Item Value Reference Range Interpretation Comments Basophils # (test code 0.0 See_Comment [Aut omated message] The = Basophils #) system which generated this result tra nsmitted reference range : <=0.2. The reference r markus was not used to int erpret this result as normal/abnormal . [facility] RockwallZeuhlwzJFSOWSCCRO5655-26-02 12:37:00 Test Item Value Reference Range Interpretation Comments Lymphocytes # (test code = Lymphocytes 2.4 1.0-5.5 #) [facility]wa[id number] 12:37:00 Test Item Value Reference Range Interpretation Comments Segs-Bands # (test code = Segs-Bands #) 4.9 1.5-8.1 [facility] Rockwa[id number] 12:37:00 Test Item Value Reference Range Interpretation Comments Eosinophils # (test code 0.1 See_Comment [A utomated message] The = Eosinophils #) system whic h generated this result tra nsmitted reference range : <=0.5. The reference r markus was not used to int erpret this result as normal/abnormal . [facility] R[id number] 12:37:00 Test Item Value Reference Range Interpretation Comments Monocytes # (test code 0.5 See_Comment [Aut omated message] The = Monocytes #) system which generated this result tra nsmitted reference range : <=0.8. The reference r markus was not used to int erpret this result as normal/abnormal . [facility] Roc[id number] 12:37:00 Test Item Value Reference Range Interpretation Comments Eosinophils (test code = 1.6 See_Comment [A utomated message] The Eosinophils) system which ge nerated this result tra nsmitted reference range : <=4.0. The reference r markus was not used to int erpret this result as normal/abnormal . [facility] Rockwa[id number] 12:37:00 Test Item Value Reference Range Interpretation Comments Monocytes (test code = Monocytes) 6.5 2.0-12.0 [facility] R[id number] 12:37:00 Test Item Value Reference Range Interpretation Comments Lymphocytes (test code = Lymphocytes) 30.0 20.0-40.0 [facility] Rockwa[id number] 12:37:00 Test Item Value Reference Range Interpretation Comments Segs (test code = Segs) 61.6 45.0-75.0 [facility] R[id number] 12:37:00 Test Item Value Reference Range Interpretation Comments Basophils (test code = 0.3 See_Comment [Aut omated message] The Basophils) system which ge nerated this result tra nsmitted reference range : <=1.0. The reference r markus was not used to int erpret this result as normal/abnormal . [facility]2014-11-09 13:50:00 Test Item Value Reference Range Interpretation Comments Magnesium Lvl (test code = Magnesium 1.8 1.8-2.4 Lvl) [facility]2014-11-09 12:55:00 Test Item Value Reference Range Interpretation Comments Lipase Lvl (test code = Lipase Lvl) 396 73-393 [facility]2014-11-09 12:55:00 Test Item Value Reference Range Interpretation Comments Amylase Lvl (test code = Amylase Lvl) 50 25-115 [facility]2014-11-09 12:55:00 Test Item Value Reference Range Interpretation Comments A/G Ratio (test code = A/G Ratio) 1.2 0.7-1.6 [facility]2014-11-09 12:55:00 Test Item Value Reference Range Interpretation Comments Globulin (test code = Globulin) 3.3 2.0-4.0 [facility]2014-11-09 12:55:00 Test Item Value Reference Range Interpretation Comments AST (test code = AST) 8 See_Comment [Auto mated message] The system which ge nerated this result transmit francine reference range : <=37. The reference range was not used to interpr et this result as angel l/abnormal. [facility]2014-11-09 12:55:00 Test Item Value Reference Range Interpretation Comments Alk Phos (test code = Alk Phos) 61 39-136 [facility]2014-11-09 12:55:00 Test Item Value Reference Range Interpretation Comments ALT (test code = ALT) 16 See_Comment [Auto mated message] The system which ge nerated this result transmit francine reference range : <=65. The reference range was not used to interpr et this result as angel l/abnormal. [facility]2014-11-09 12:55:00 Test Item Value Reference Range Interpretation Comments Calcium Lvl (test code = Calcium Lvl) 9.1 8.5-10.5 [facility]2014-11-09 12:55:00 Test Item Value Reference Range Interpretation Comments B/C Ratio (test code = B/C Ratio) 12 6- [facility]2014-11-09 12:55:00 Test Item Value Reference Range Interpretation Comments Total Protein (test code = Total 7.2 6.4-8.4 Protein) [facility]2014-11-09 12:55:00 Test Item Value Reference Range Interpretation Comments AGAP (test code = AGAP) 9.3 10.0-20.0 [facility]2014-11-09 12:55:00 Test Item Value Reference Range Interpretation Comments Albumin Lvl (test code = Albumin Lvl) 3.9 3.5-5.0 [facility]2014-11-09 12:55:00 Test Item Value Reference Range Interpretation Comments Bili Total (test code = Bili Total) 0.9 0.2-1.3 [facility]2014-11-09 12:55:00 Test Item Value Reference Range Interpretation Comments eGFR (test code = eGFR) 79 [facility]2014-11-09 12:55:00 Test Item Value Reference Range Interpretation Comments Glucose Lvl (test code = Glucose Lvl) 106 70-99 [facility]2014-11-09 12:55:00 Test Item Value Reference Range Interpretation Comments BUN (test code = BUN) 11 11-19 [facility]2014-11-09 12:55:00 Test Item Value Reference Range Interpretation Comments Creatinine Lvl (test code = Creatinine 0.9 0.5-1.4 Lvl) [facility]2014-11-09 12:55:00 Test Item Value Reference Range Interpretation Comments Potassium Lvl (test code = Potassium 2.3 3.5-5.1 Lvl) [facility]2014-11-09 12:55:00 Test Item Value Reference Range Interpretation Comments Chloride Lvl (test code = Chloride Lvl) 104 95-109 [facility]2014-11-09 12:55:00 Test Item Value Reference Range Interpretation Comments CO2 (test code = CO2) 27 24-32 [facility]2014-11-09 12:55:00 Test Item Value Reference Range Interpretation Comments Sodium Lvl (test code = Sodium Lvl) 138 135-145 [facility]wallMsiwbxyNQFKAADKMC0539-57-46 12:55:00 Test Item Value Reference Range Interpretation Comments Monocytes # (test code 0.5 See_Comment [Aut omated message] The = Monocytes #) system which generated this result tra nsmitted reference range : <=0.8. The reference r markus was not used to int erpret this result as normal/abnormal . [facility] RockwallUjlafpgCHJISCRXFJ1947-98-54 12:55:00 Test Item Value Reference Range Interpretation Comments Basophils (test code = 0.3 See_Comment [Aut omated message] The Basophils) system which ge nerated this result tra nsmitted reference range : <=1.0. The reference r markus was not used to int erpret this result as normal/abnormal . [facility] RockwallRdtkecjSNPOYSDCJY5379-85-89 12:55:00 Test Item Value Reference Range Interpretation Comments Lymphocytes # (test code = Lymphocytes 2.3 1.0-5.5 #) [facility]wallCeyuglbSSXRZLRMUJ1225-90-44 12:55:00 Test Item Value Reference Range Interpretation Comments Segs-Bands # (test code = Segs-Bands #) 7.0 1.5-8.1 [facility] [id number] 12:55:00 Test Item Value Reference Range Interpretation Comments Eosinophils (test code = 0.3 See_Comment [A utomated message] The Eosinophils) system which ge nerated this result tra nsmitted reference range : <=4.0. The reference r markus was not used to int erpret this result as normal/abnormal . [facility] RockwallMtlanpcYSCPSJFKQN4842-06-42 12:55:00 Test Item Value Reference Range Interpretation Comments Eosinophils # (test code 0.0 See_Comment [A utomated message] The = Eosinophils #) system whic h generated this result tra nsmitted reference range : <=0.5. The reference r markus was not used to int erpret this result as normal/abnormal . [facility] RockwallBgxqsyyUTZGAHZHOE7937-45-33 12:55:00 Test Item Value Reference Range Interpretation Comments Basophils # (test code 0.0 See_Comment [Aut omated message] The = Basophils #) system which generated this result tra nsmitted reference range : <=0.2. The reference r markus was not used to int erpret this result as normal/abnormal . [facility] RockwallTslvreiIKUNXUTYUZ4599-89-74 12:55:00 Test Item Value Reference Range Interpretation Comments Monocytes (test code = Monocytes) 4.6 2.0-12.0 [place] [address]-11-09 12:55:00 Test Item Value Reference Range Interpretation Comments Lymphocytes (test code = Lymphocytes) 23.4 20.0-40.0 [facility]wallHkxrybuWIRINVNRDR4507-88-68 12:55:00 Test Item Value Reference Range Interpretation Comments Segs (test code = Segs) 71.4 45.0-75.0 [facility]wallJpuszyuZSHXZWGRSZ9958-18-53 12:55:00 Test Item Value Reference Range Interpretation Comments INR (test code = INR) 1.08 0.85-1.17 [facility] RockwallPrfjbesPKKCKUMXAB4440-50-43 12:55:00 Test Item Value Reference Range Interpretation Comments PTT (test code = PTT) 28.7 s 22.9-35.8 [facility] RockwallHrloswgDDECEFDOER2380-52-05 12:55:00 Test Item Value Reference Range Interpretation Comments PT (test code = PT) 14.0 s 12.0-14.7 [facility] Rockwa[id number] 12:55:00 Test Item Value Reference Range Interpretation Comments Hct (test code = Hct) 45.4 36.0-48.0 [facility] RockwallSwsyhofPIXBPCRECU5647-47-68 12:55:00 Test Item Value Reference Range Interpretation Comments MCV (test code = MCV) 94.6 80.0-98.0 [facility] RockwallUkxrupuSRYWCBNIKQ9133-36-01 12:55:00 Test Item Value Reference Range Interpretation Comments RBC (test code = RBC) 4.80 4.20-5.40 [facility] RockwallUjwsakwLBBFCSEHDC9071-45-22 12:55:00 Test Item Value Reference Range Interpretation Comments Hgb (test code = Hgb) 15.2 12.0-16.0 [facility] RockwallCkotizsULZGTEGWFQ9995-47-84 12:55:00 Test Item Value Reference Range Interpretation Comments WBC (test code = WBC) 9.9 3.7-10.4 [facility] Rockwa[id number] 12:55:00 Test Item Value Reference Range Interpretation Comments Platelet (test code = Platelet) 256 133-450 [facility]etlytMSQIXVQPWQ2688-66-76 12:55:00 Test Item Value Reference Range Interpretation Comments MPV (test code = MPV) 7.5 7.4-10.4 [facility]ZymgnrwLTTZKTITVT8062-26-07 12:55:00 Test Item Value Reference Range Interpretation Comments RDW (test code = RDW) 13.7 11.5-14.5 [facility] VahjhyrLRJFCQBVLO3367-22-10 12:55:00 Test Item Value Reference Range Interpretation Comments MCH (test code = MCH) 31.7 pg 27.0-31.0 [facility] [id number] 12:55:00 Test Item Value Reference Range Interpretation Comments MCHC (test code = MCHC) 33.5 32.0-36.0 [facility] CenterNsdortdLATIKTERTA7776-09-30 12:55:00 Test Item Value Reference Range Interpretation Comments [facility] HIV 4th GEN (test Negative (03/09/14 6:55 code = CDC HIV 4th AM) GEN) [facility] [id number] 12:55:00 Test Item Value Reference Range Interpretation Comments UA Blood (test code = Negative (03/09/14 6:55 UA Blood) AM) [facility] [id number] 12:55:00 Test Item Value Reference Range Interpretation Comments UA Glucose (test code Negative (03/09/14 6:55 = UA Glucose) AM) [facility] [id number] 12:55:00 Test Item Value Reference Range Interpretation Comments UA Ketones (test code Negative *NA*(03/09/14 = UA Ketones) 6:55 AM) [facility] [id number] 12:55:00 Test Item Value Reference Range Interpretation Comments UA Bili (test code = Negative *NA*(03/09/14 UA Bili) 6:55 AM) [facility] [id number] 12:55:00 Test Item Value Reference Range Interpretation Comments UA Leuk Est (test code Large *ABN*(03/09/14 = UA Leuk Est) 6:55 AM) [facility] [id number] 12:55:00 Test Item Value Reference Range Interpretation Comments UA Urobilinogen (test code = UA 1.0 0.1-1.0 Urobilinogen) [facility] [id number] 12:55:00 Test Item Value Reference Range Interpretation Comments UA Nitrite (test code Negative (03/09/14 6:55 = UA Nitrite) AM) [facility] [id number] 12:55:00 Test Item Value Reference Range Interpretation Comments UA Spec Grav (test code = UA Spec 1.015 1 Grav) [facility] [id number] 12:55:00 Test Item Value Reference Range Interpretation Comments UA pH (test code = UA pH) 7.5 1 5.0-8.0 [facility] [id number] 12:55:00 Test Item Value Reference Range Interpretation Comments UA Protein (test code Negative (03/09/14 6:55 = UA Protein) AM) [facility] [id number] 12:55:00 Test Item Value Reference Range Interpretation Comments UA Turbidity (test code = Clear (03/09/14 6:55 UA Turbidity) AM) [facility] [id number] 12:55:00 Test Item Value Reference Range Interpretation Comments UA Color (test code = Yellow *NA*(03/09/14 UA Color) 6:55 AM) [facility] [id number] 12:55:00 Test Item Value Reference Range Interpretation Comments UA WBC (test code = UA WBC) 21-50 /HPF [facility] [id number] 12:55:00 Test Item Value Reference Range Interpretation Comments UA Sq Epi (test code = UA Sq Moderate /LPF Epi) [facility] [id number] 12:55:00 Test Item Value Reference Range Interpretation Comments UA Mucus (test code = UA Mucus) Few /LPF [facility] [id number] 12:55:00 Test Item Value Reference Range Interpretation Comments UA Amorph Priti (test code = UA Few /HPF Amorph Priti) [facility] [id number] 12:55:00 Test Item Value Reference Range Interpretation Comments UA RBC (test code = 3-5 /HPF See_Comment [Automa francine message] The UA RBC) system which ge nerated this result tra nsmitted reference range : <=2. The reference range was not used to interpr et this result as angel l/abnormal. [facility] [id number] 12:55:00 Test Item Value Reference Range Interpretation Comments UA Bacteria (test code = UA Moderate /HPF Bacteria) [facility] RegionErfroamQDHKZDVZUMSL5907-52-51 16:00:00 Test Item Value Reference Range Interpretation Comments Potassium Lvl (test code = Potassium 2.9 3.5-5.1 Lvl) [facility] RegionYwqaxgiOEIKFXZTSFCE5234-94-81 16:00:00 Test Item Value Reference Range Interpretation Comments Creatinine Lvl (test code = Creatinine 0.9 0.5-1.4 Lvl) [facility] RegionUicadhdYGLRXGZOGOFK6870-28-43 16:00:00 Test Item Value Reference Range Interpretation Comments Sodium Lvl (test code = Sodium Lvl) 143 135-145 [facility] RegionGldryvvDYKQZDQEGPWY9557-28-69 16:00:00 Test Item Value Reference Range Interpretation Comments BUN (test code = BUN) 11 7-22 [facility] RegionEsjmvooDNRHGQBPGGYS2295-71-21 16:00:00 Test Item Value Reference Range Interpretation Comments Glucose Lvl (test code = Glucose Lvl) 89 70-99 [facility] RegionTasslbkJPEHKUYFDMNA5458-12-99 16:00:00 Test Item Value Reference Range Interpretation Comments AST (test code = AST) 13 See_Comment [Auto mated message] The system which ge nerated this result transmit francine reference range : <=37. The reference range was not used to interpr et this result as angel l/abnormal. [facility] RegionKdceivpWLSHCOTELTIW4108-89-94 16:00:00 Test Item Value Reference Range Interpretation Comments Alk Phos (test code = Alk Phos) 76 39-136 [facility] RegionIskaoudHUAPUVCGNDNP9295-16-24 16:00:00 Test Item Value Reference Range Interpretation Comments Bili Total (test code = Bili Total) 0.4 0.2-1.3 [facility] RegionIyheitvWPQIGSRXBFEG0816-32-49 16:00:00 Test Item Value Reference Range Interpretation Comments Globulin (test code = Globulin) 2.9 2.0-4.0 [facility] RegionFybbhltACXUADNJUHWP7471-48-86 16:00:00 Test Item Value Reference Range Interpretation Comments A/G Ratio (test code = A/G Ratio) 1.2 0.7-1.6 [facility] RegionRstidzeRDXYYFBEAIBV5080-32-31 16:00:00 Test Item Value Reference Range Interpretation Comments ALT (test code = ALT) 16 See_Comment [Auto mated message] The system which ge nerated this result transmit francine reference range : <=65. The reference range was not used to interpr et this result as angel l/abnormal. [facility] RegionEqlkwdaCTKMPJVKUVEP3168-42-74 16:00:00 Test Item Value Reference Range Interpretation Comments B/C Ratio (test code = B/C Ratio) 12 6-25 [facility] RegionQrhozqxAUYITQJSXHEB1102-47-21 16:00:00 Test Item Value Reference Range Interpretation Comments Albumin Lvl (test code = Albumin Lvl) 3.6 3.5-5.0 [facility] RegionOvmsbdiFSCKARAFKXHH3229-92-62 16:00:00 Test Item Value Reference Range Interpretation Comments Total Protein (test code = Total 6.5 6.4-8.4 Protein) [facility] RegionKubctypHUISJKJALYJC4727-59-30 16:00:00 Test Item Value Reference Range Interpretation Comments CO2 (test code = CO2) 20 24-32 [facility] RegionOvfzgtjOFDAREGFMMAB6718-64-52 16:00:00 Test Item Value Reference Range Interpretation Comments Chloride Lvl (test code = Chloride Lvl) 109 95-109 [facility] RegionFwghgrcOYWGRGJWYGSJ9331-54-12 16:00:00 Test Item Value Reference Range Interpretation Comments AGAP (test code = AGAP) 16.9 10.0-20.0 [facility] RegionXzgpycuETSENORJAZYD5621-25-56 16:00:00 Test Item Value Reference Range Interpretation Comments Calcium Lvl (test code = Calcium Lvl) 8.6 8.5-10.5 [facility] RegionMgfoytsGICPIMLZISUT1441-65-30 16:00:00 Test Item Value Reference Range Interpretation Comments eGFR (test code = eGFR) 79 [facility]wallBadyurqLJTOGYYQXW6727-07-25 16:00:00 Test Item Value Reference Range Interpretation Comments RBC (test code = RBC) 4.29 4.20-5.40 [facility]wallXkyrxzdEDZBKWHXZV5286-91-92 16:00:00 Test Item Value Reference Range Interpretation Comments MPV (test code = MPV) 6.7 7.4-10.4 [facility]wallNgsczgsWAJKYVFWEX7020-69-07 16:00:00 Test Item Value Reference Range Interpretation Comments Platelet (test code = Platelet) 337 133-450 [facility] RockwallHzqzfdvSAAHPNPZLB4032-91-99 16:00:00 Test Item Value Reference Range Interpretation Comments RDW (test code = RDW) 14.6 11.5-14.5 [facility] RockwallSdagzjePRNOSMEYSS2931-09-20 16:00:00 Test Item Value Reference Range Interpretation Comments MCHC (test code = MCHC) 33.9 32.0-36.0 [facility] RockwallRjaxnadVXWWDACJCY7149-27-60 16:00:00 Test Item Value Reference Range Interpretation Comments MCH (test code = MCH) 31.1 pg 27.0-31.0 [facility]wallNtpboxtRAJYMWVQMS0423-21-97 16:00:00 Test Item Value Reference Range Interpretation Comments MCV (test code = MCV) 91.6 80.0-98.0 [facility] RockwallQvvjobjJPTTGTDDKJ3383-37-51 16:00:00 Test Item Value Reference Range Interpretation Comments Hct (test code = Hct) 39.3 36.0-48.0 [facility] RockwallKcvzuwfTOYRBZYZYE6182-49-57 16:00:00 Test Item Value Reference Range Interpretation Comments Hgb (test code = Hgb) 13.4 12.0-16.0 [facility] RockwallZcmlqonGZUGJXHLKZ1153-94-63 16:00:00 Test Item Value Reference Range Interpretation Comments WBC (test code = WBC) 13.4 3.7-10.4 [facility] RockwallOfxyovcJJWDAJADMA7367-22-93 16:00:00 Test Item Value Reference Range Interpretation Comments Basophils # (test code 0.0 See_Comment [Aut omated message] The = Basophils #) system which generated this result tra nsmitted reference range : <=0.2. The reference r markus was not used to int erpret this result as normal/abnormal . [facility] RockwallBadsfzbANOKBOSLJP8162-08-85 16:00:00 Test Item Value Reference Range Interpretation Comments Eosinophils # (test code 0.0 See_Comment [A utomated message] The = Eosinophils #) system whic h generated this result tra nsmitted reference range : <=0.5. The reference r markus was not used to int erpret this result as normal/abnormal . [facility]wallYcnrwkfTAQJZTZXVQ6345-28-76 16:00:00 Test Item Value Reference Range Interpretation Comments Monocytes # (test code 0.6 See_Comment [Aut omated message] The = Monocytes #) system which generated this result tra nsmitted reference range : <=0.8. The reference r markus was not used to int erpret this result as normal/abnormal . [facility] RockwallCmqqhmbGHMUMSLXBD8769-45-42 16:00:00 Test Item Value Reference Range Interpretation Comments Segs-Bands # (test code = Segs-Bands #) 10.1 1.5-8.1 [facility] RockwallQqcbcilZUXESSCHGS9645-97-55 16:00:00 Test Item Value Reference Range Interpretation Comments Lymphocytes # (test code = Lymphocytes 2.7 1.0-5.5 #) [facility] RockwallBqqbobvIQCEIWOEUL8118-10-98 16:00:00 Test Item Value Reference Range Interpretation Comments Monocytes (test code = Monocytes) 4.4 2.0-12.0 [facility] RockwallJhjmoftXTCPPXMMRR8462-18-61 16:00:00 Test Item Value Reference Range Interpretation Comments Lymphocytes (test code = Lymphocytes) 20.1 20.0-40.0 [facility] RockwallFtbzbjmXDFVNANPFK5696-74-80 16:00:00 Test Item Value Reference Range Interpretation Comments Segs (test code = Segs) 74.9 45.0-75.0 [facility] RockwallFeuhfyzJHPNGCPZVR7378-68-65 16:00:00 Test Item Value Reference Range Interpretation Comments Eosinophils (test code = 0.3 See_Comment [A utomated message] The Eosinophils) system which ge nerated this result tra nsmitted reference range : <=4.0. The reference r markus was not used to int erpret this result as normal/abnormal . [facility] RockwallPrnntdaNJDRYHOVUD7636-12-74 16:00:00 Test Item Value Reference Range Interpretation Comments Basophils (test code = 0.3 See_Comment [Aut omated message] The Basophils) system which ge nerated this result tra nsmitted reference range : <=1.0. The reference r markus was not used to int erpret this result as normal/abnormal . [facility] CenterBsovqsqFMWBYMTAJY7768-47-78 16:00:00 Test Item Value Reference Range Interpretation Comments Salicylate Lvl (test 6.2 See_Comment [Autom ated message] The code = Salicylate Lvl) syste m which generated this result tra nsmitted reference range : <=30.0. The reference r markus was not used to int erpret this result as normal/abnormal . [facility]pwfxuyLOZQEPBDKB7358-12-[facility] 16:00:00 Test Item Value Reference Range Interpretation Comments Acetaminoph Lvl (test code = 9 20 Acetaminoph Lvl) [facility] CenterCfxinroKYTASVILGL8951-86-82 16:00:00 Test Item Value Reference Range Interpretation Comments Ethanol Lvl (test code = Ethanol Lvl) no gt [facility] HospitalDvjfnnnUXUEMXSGQH4289-36-54 16:00:00 Test Item Value Reference Range Interpretation Comments Etoh (%) (test code = Etoh (%)) no gt [facility]ann[facility] [id number] 15:30:41 Test Item Value Reference Range Interpretation Comments U Cocaine Scr (test Positive *ABN*(01/14/14 code = U Cocaine Scr) 10:30 AM) [facility] [id number] 15:30:41 Test Item Value Reference Range Interpretation Comments U Benzodia Scr (test Negative *NA*(01/14/14 code = U Benzodia Scr) 10:30 AM) [facility] [id number] 15:30:41 Test Item Value Reference Range Interpretation Comments U Lizzy Scr (test code Negative *NA*(01/14/14 = U Lizzy Scr) 10:30 AM) [facility] [id number] 15:30:41 Test Item Value Reference Range Interpretation Comments U Amph Scr (test code Positive *ABN*(01/14/14 = U Amph Scr) 10:30 AM) [facility] [id number] 15:30:41 Test Item Value Reference Range Interpretation Comments UDS Note (test code = See Note 4(01/14/14 UDS Note) 10:30 AM) [facility] ERDVOR0828-08-57 15:30:41 Test Item Value Reference Range Interpretation Comments U Phencyc Scr (test Negative *NA*(01/14/14 code = U Phencyc Scr) 10:30 AM) [facility] [id number] 15:30:41 Test Item Value Reference Range Interpretation Comments U Cannab Scr (test Negative *NA*(01/14/14 code = U Cannab Scr) 10:30 AM) [facility] [id number] 15:30:41 Test Item Value Reference Range Interpretation Comments U Opiate Scr (test Positive *ABN*(01/14/14 code = U Opiate Scr) 10:30 AM) [facility] AND [id number] 15:30:00 Test Item Value Reference Range Interpretation Comments UA Urobilinogen (test code = UA 0.2 0.1-1.0 Urobilinogen) [facility] AND [id number] 15:30:00 Test Item Value Reference Range Interpretation Comments UA Nitrite (test code Negative (01/14/14 10:30 = UA Nitrite) AM) [facility] AND [id number] 15:30:00 Test Item Value Reference Range Interpretation Comments UA Leuk Est (test Moderate *ABN*(01/14/14 code = UA Leuk Est) 10:30 AM) [facility] AND [id number] 15:30:00 Test Item Value Reference Range Interpretation Comments UA Sq Epi (test code = UA Sq Epi) Rare /LPF [facility] AND [id number] 15:30:00 Test Item Value Reference Range Interpretation Comments UA RBC (test code = 0-2 /HPF See_Comment [Automa francine message] The UA RBC) system which ge nerated this result tra nsmitted reference range : <=2. The reference range was not used to interpr et this result as angel l/abnormal. [facility] AND [id number] 15:30:00 Test Item Value Reference Range Interpretation Comments UA WBC (test code = UA Packed *ABN*(01/14/14 WBC) 10:30 AM) [facility] AND [id number] 15:30:00 Test Item Value Reference Range Interpretation Comments UA Bacteria (test code = UA Occasional /HPF Bacteria) [facility] AND [id number] 15:30:00 Test Item Value Reference Range Interpretation Comments UA Bili (test code = Moderate *ABN*(01/14/14 UA Bili) 10:30 AM) [facility] AND [id number] 15:30:00 Test Item Value Reference Range Interpretation Comments UA Ketones (test code = UA >=80 mg/dL Ketones) [facility] AND [id number] 15:30:00 Test Item Value Reference Range Interpretation Comments UA Blood (test code = Trace *ABN*(01/14/14 UA Blood) 10:30 AM) [facility] [id number] 15:30:00 Test Item Value Reference Range Interpretation Comments UA Color (test code = Yellow *NA*(01/14/14 UA Color) 10:30 AM) [facility] [id number] 15:30:00 Test Item Value Reference Range Interpretation Comments UA pH (test code = UA pH) 6.0 1 5.0-8.0 [facility] [id number] 15:30:00 Test Item Value Reference Range Interpretation Comments UA Spec Grav (test >=1.030 *ABN*(01/14/14 code = UA Spec Grav) 10:30 AM) [facility] [id number] 15:30:00 Test Item Value Reference Range Interpretation Comments UA Turbidity (test code Slight Cloudy = UA Turbidity) (01/14/14 10:30 AM) [facility] AND [id number] 15:30:00 Test Item Value Reference Range Interpretation Comments UA Glucose (test code Negative (01/14/14 10:30 = UA Glucose) AM) [facility] AND [id number] 15:30:00 Test Item Value Reference Range Interpretation Comments UA Protein (test code = Trace *ABN*(01/14/14 UA Protein) 10:30 AM) [facility] [id number] 15:30:00 Test Item Value Reference Range Interpretation Comments U Preg (test code = U Negative (01/14/14 10:30 Preg) AM) [facility] CenterCHEM [id number] 04:50:00 Test Item Value Reference Range Interpretation Comments Lipase Lvl (test code = Lipase Lvl) 101 73-393 [facility] CenterCHEM [id number] 04:50:00 Test Item Value Reference Range Interpretation Comments Amylase Lvl (test code = Amylase Lvl) 23 25-115 [facility] CenterCHEM [id number] 04:50:00 Test Item Value Reference Range Interpretation Comments Alk Phos (test code = Alk Phos) 69 39-136 [facility] CenterAdXpose [id number] 04:50:00 Test Item Value Reference Range Interpretation Comments Bili Total (test code = Bili Total) 0.5 0.2-1.3 [facility]2014-09-16 04:50:00 Test Item Value Reference Range Interpretation Comments AST (test code = AST) 14 See_Comment [Auto mated message] The system which ge nerated this result transmit francine reference range : <=37. The reference range was not used to interpr et this result as angel l/abnormal. [facility]2014-09-16 04:50:00 Test Item Value Reference Range Interpretation Comments Potassium Lvl (test code = Potassium 2.9 3.5-5.1 Lvl) [facility]2014-09-16 04:50:00 Test Item Value Reference Range Interpretation Comments Chloride Lvl (test code = Chloride Lvl) 109 95-109 [facility]2014-09-16 04:50:00 Test Item Value Reference Range Interpretation Comments AGAP (test code = AGAP) 19.9 10.0-20.0 [facility]2014-09-16 04:50:00 Test Item Value Reference Range Interpretation Comments Calcium Lvl (test code = Calcium Lvl) 8.4 8.5-10.5 [facility]2014-09-16 04:50:00 Test Item Value Reference Range Interpretation Comments Total Protein (test code = Total 6.0 6.4-8.4 Protein) [facility]2014-09-16 04:50:00 Test Item Value Reference Range Interpretation Comments Albumin Lvl (test code = Albumin Lvl) 3.3 3.5-5.0 [facility]2014-09-16 04:50:00 Test Item Value Reference Range Interpretation Comments CO2 (test code = CO2) 18 24-32 [facility]2014-09-16 04:50:00 Test Item Value Reference Range Interpretation Comments B/C Ratio (test code = B/C Ratio) 21 6-25 [facility]2014-09-16 04:50:00 Test Item Value Reference Range Interpretation Comments Creatinine Lvl (test code = Creatinine 0.7 0.5-1.4 Lvl) [facility]2014-09-16 04:50:00 Test Item Value Reference Range Interpretation Comments Sodium Lvl (test code = Sodium Lvl) 144 135-145 [facility]2014-09-16 04:50:00 Test Item Value Reference Range Interpretation Comments BUN (test code = BUN) 15 7-22 [facility]2014-09-16 04:50:00 Test Item Value Reference Range Interpretation Comments Glucose Lvl (test code = Glucose Lvl) 95 70-99 [facility]2014-09-16 04:50:00 Test Item Value Reference Range Interpretation Comments ALT (test code = ALT) 14 See_Comment [Auto mated message] The system which ge nerated this result transmit francine reference range : <=65. The reference range was not used to interpr et this result as angel l/abnormal. [place] [id number] 04:50:00 Test Item Value Reference Range Interpretation Comments eGFR (test code = eGFR) 107 [facility]2014-09-16 04:50:00 Test Item Value Reference Range Interpretation Comments A/G Ratio (test code = A/G Ratio) 1.2 0.7-1.6 [facility]2014-09-16 04:50:00 Test Item Value Reference Range Interpretation Comments Globulin (test code = Globulin) 2.7 2.0-4.0 [id number] 03:50:00 Test Item Value Reference Range Interpretation Comments Segs-Bands # (test code = Segs-Bands #) 7.8 1.5-8.1 [id number] 03:50:00 Test Item Value Reference Range Interpretation Comments Lymphocytes # (test code = Lymphocytes 2.4 1.0-5.5 #) [facility] RockwallSvuzxfnJMFGJAWISD2484-81-69 03:50:00 Test Item Value Reference Range Interpretation Comments Monocytes (test code = Monocytes) 4.6 2.0-12.0 [facility] RockwallYwrwlnrBRSUXOXBMA4364-72-90 03:50:00 Test Item Value Reference Range Interpretation Comments Monocytes # (test code 0.5 See_Comment [Aut omated message] The = Monocytes #) system which generated this result tra nsmitted reference range : <=0.8. The reference r markus was not used to int erpret this result as normal/abnormal . [facility] RockwallGhhoeinTKJREKVAOB7609-66-91 03:50:00 Test Item Value Reference Range Interpretation Comments Lymphocytes (test code = Lymphocytes) 22.4 20.0-40.0 [facility] Rockwa[id number] 03:50:00 Test Item Value Reference Range Interpretation Comments Basophils # (test code 0.0 See_Comment [Aut omated message] The = Basophils #) system which generated this result tra nsmitted reference range : <=0.2. The reference r markus was not used to int erpret this result as normal/abnormal . [facility] RockwallKzkejhbBEEFWNSOJL2028-47-35 03:50:00 Test Item Value Reference Range Interpretation Comments Eosinophils # (test code 0.1 See_Comment [A utomated message] The = Eosinophils #) system whic h generated this result tra nsmitted reference range : <=0.5. The reference r markus was not used to int erpret this result as normal/abnormal . [facility] RockwallEwqxdaqSDOCJFKGVB3295-58-38 03:50:00 Test Item Value Reference Range Interpretation Comments Eosinophils (test code = 0.6 See_Comment [A utomated message] The Eosinophils) system which ge nerated this result tra nsmitted reference range : <=4.0. The reference r markus was not used to int erpret this result as normal/abnormal . [facility] RockwallYwzrlwhYBMDHCVMWB8162-24-20 03:50:00 Test Item Value Reference Range Interpretation Comments Basophils (test code = 0.3 See_Comment [Aut omated message] The Basophils) system which ge nerated this result tra nsmitted reference range : <=1.0. The reference r markus was not used to int erpret this result as normal/abnormal . [facility] RockwallTrsxthrHUSDEEKFWO7373-69-55 03:50:00 Test Item Value Reference Range Interpretation Comments Segs (test code = Segs) 72.1 45.0-75.0 [facility] RockwallCulkrecVRSXVVZFUE8335-23-37 03:50:00 Test Item Value Reference Range Interpretation Comments MPV (test code = MPV) 7.0 7.4-10.4 [facility] RockwallWrggbceLNDYIEJYAS4399-56-47 03:50:00 Test Item Value Reference Range Interpretation Comments Platelet (test code = Platelet) 407 133-450 [facility] RockwallRsdtlhcZDFBOEQFMH6662-90-83 03:50:00 Test Item Value Reference Range Interpretation Comments RDW (test code = RDW) 14.8 11.5-14.5 [facility]EoyptxkOPPWPFXZOL4420-41-32 03:50:00 Test Item Value Reference Range Interpretation Comments MCHC (test code = MCHC) 33.5 32.0-36.0 [facility] HospitalAjoggjxIAQKJHPOEW8520-33-33 03:50:00 Test Item Value Reference Range Interpretation Comments MCH (test code = MCH) 30.7 pg 27.0-31.0 [facility] HospitalSfgvaqcHGLTVNOKQW4414-82-00 03:50:00 Test Item Value Reference Range Interpretation Comments Hct (test code = Hct) 41.5 36.0-48.0 [facility] HospitalCzupvetLEEGOURPTX8520-40-82 03:50:00 Test Item Value Reference Range Interpretation Comments RBC (test code = RBC) 4.53 4.20-5.40 [facility] HospitalGadxdkeWNNQLXRMXZ9911-02-98 03:50:00 Test Item Value Reference Range Interpretation Comments Hgb (test code = Hgb) 13.9 12.0-16.0 [facility] HospitalDjluxwvVQHORKLCDS1924-92-70 03:50:00 Test Item Value Reference Range Interpretation Comments WBC (test code = WBC) 10.8 3.7-10.4 [facility] HospitalLnsdcalGAHLNWBOGA9376-26-86 03:50:00 Test Item Value Reference Range Interpretation Comments MCV (test code = MCV) 91.6 80.0-98.0 [facility] CenterJuhirneQkfqlwmyl8485-31-14 15:05:54 Test Item Value Reference Range Interpretation Comments TSH (test code = TSH) 0.44 [facility] CenterOb/Hil3416-09-15 16:10:03 Test Item Value Reference Range Interpretation Comments PAP SMEAR (test code = PAP SMEAR) Normal [facility] CenterTeohexwQrbjyupmz6720-47-71 16:10:03 Test Item Value Reference Range Interpretation Comments PAP SMEAR (test code = PAP SMEAR) Normal [facility]
[2021-10-06 04:39] LABS: Absolute Lymphocytes (CBC) 1.7 K/uL (0.7-4.9); Hematocrit 40.9 % (36.0-45.0); Lymphocytes % 17.1 % (15.3-44.8); MPV 6.1 fL (7.6-11.3); RBC Red Blood Cell Count 4.43 M/uL (3.86-4.86)
[2021-10-06] MEDS ORDERED: MORPHINE 2 MG/ML SYR ONE (04:41)
[2021-10-06] MEDS ORDERED: NA CHLORIDE 0.9% 1,000 ML ONE (04:42)
[2021-10-06] MEDS ORDERED: ONDANSETRON 4 MG/2 ML VIAL ONE (04:42)
[2021-10-06 04:59] LABS: Albumin 3.3 g/dL (3.4-5.0); Bilirubin Total 0.3 mg/dL (0.2-1.0); Potassium 3.9 mmol/L (3.5-5.1); Protein, Total 6.8 g/dL (6.4-8.2)
[2021-10-06 06:13] LABS: Urine Blood Negative (Negative); Urine Glucose Negative (Negative); Urine Protein Negative (Negative); Urine Specific Gravity <=1.005 (1.005-1.030)
--- NOTE | 2021-10-06 07:28 | ER ---
Nurse's Notes [facility] Name: Angela Rodriguez Age: 51 yrs Sex: Female : 1970 Arrival Date: 10/06/2021 Time: 03:21 Bed 20 Private MD: Diagnosis: Small Bowel obstruction;Crohn's disease, unspecified, with unspecified complications Presentation: 10/06 03:30 Chief complaint: Patient states: "My stomach is killing me. I have krones disease.". tw5 Coronavirus screen: Vaccine status: Patient reports receiving the 2nd dose of the covid vaccine. Brain in [employer] and [place]. Ebola Screen: Patient negative for fever greater than or equal to 101.5 degrees Fahrenheit, and additional compatible Ebola Virus Disease symptoms Patient denies exposure to infectious person. Patient denies travel to an Ebola-affected area in the 21 days before illness onset. Initial Sepsis Screen: Does the patient meet any 2 criteria? No. Patient's initial sepsis screen is negative. Does the patient have a suspected source of infection? Yes: Acute abdominal pain. Risk Assessment: Do you want to hurt yourself or someone else? Patient reports no desire to harm self or others. Onset of symptoms was October 05, 2021 at 21:00. 03:30 Method Of Arrival: Ambulatory tw 03:30 Acuity: LIZZY 3 tw5 Triage Assessment: 03:31 General: Appears uncomfortable, Behavior is appropriate for age, anxious. Pain: tw5 Complains of pain in abdomen Pain currently is 10 out of 10 on a pain scale. Quality of pain is described as squeezing. GI: Reports Pain is 10 out of 10 on a pain scale. 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 - Social history:: Smoking status: Patient reports the use of cigarette tobacco products, 3 per da. Screenin:18 Abuse screen: Denies threats or abuse. Denies injuries from another. Nutritional lg3 screening: No deficits noted. Tuberculosis screening: No symptoms or risk factors identified. Fall Risk None identified. Assessment: 04:18 General: Appears in no apparent distress. uncomfortable, Behavior is calm, cooperative. lg3 Pain: Complains of pain in left lower quadrant and right lower quadrant and suprapubic area. Neuro: No deficits noted. Enamorado Agitation-Sedation Scale (RASS): 0 - Alert and Calm Level of Consciousness is awake, alert, obeys commands, Oriented to person, place, time, situation. Cardiovascular: No deficits noted. Denies chest pain, shortness of breath, Capillary refill < 3 seconds Clubbing of nail beds is absent JVD is absent Patient's skin is warm and dry. Respiratory: No deficits noted. Airway is patent Trachea midline Respiratory effort is even, unlabored, Respiratory pattern is regular, symmetrical. GI: Abdomen is round non-distended, Bowel sounds present X 4 quads. Abd is soft X 4 quads Abdomen is tender to palpation in right lower quadrant and left lower quadrant Reports lower abdominal pain, cramping, nausea. : No deficits noted. No signs and/or symptoms were reported regarding the genitourinary system. EENT: No deficits noted. No signs and/or symptoms were reported regarding the EENT system. Derm: No deficits noted. No signs and/or symptoms reported regarding the dermatologic system. Skin is intact, is healthy with good turgor, Skin is dry, Skin temperature is warm. Musculoskeletal: No deficits noted. No signs and/or symptoms reported regarding the musculoskeletal system. Circulation, motion, and sensation intact. Range of motion: intact in all extremities. 05:15 Reassessment: Patient appears in no apparent distress at this time. No changes from lg3 previously documented assessment. pt quietly resting at this time. 06:14 Reassessment: Patient appears in no apparent distress at this time. No changes from lg3 previously documented assessment. Patient and/or family updated on plan of care and expected duration. Pain level reassessed. Patient is alert, oriented x 3, equal unlabored respirations, skin warm/dry/pink. 07:31 Reassessment: Patient and/or family updated on plan of care and expected duration. Pain jh6 level reassessed. Patient is alert, oriented x 3, equal unlabored respirations, skin warm/dry/pink. Pain: Complains of pain in abdomen Pain currently is 6 out of 10 on a pain scale. Quality of pain is described as crampy, sharp, Is continuous, Aggravated by eating, drinking, repositioning. Vital Signs: 03:30 BP 96 / 67; Pulse 88; Resp 18; Temp 98.6; Pulse Ox 96% on R/A; Weight 83.91 kg; Height tw5 5 ft. 2 in. (157.48 cm); Pain 10/10; 05:16 BP 94 / 72; Pulse 84; Resp 16; Pulse Ox 97% on R/A; lg3 06:13 BP 100 / 72; Pulse 84; Resp 16; Pulse Ox 96% on R/A; lg3 06:40 BP 97 / 71; Pulse 88; Resp 16; Pulse Ox 95% on R/A; lg3 07:00 BP 107 / 71; Pulse 68; Resp 17; Pulse Ox 100% ; Pain 6/10; jh6 03:30 Body Mass Index 33.84 (83.91 kg, 157.48 cm) tw5 ED Course: 03:21 Patient arrived in ED. ja2 03:31 Triage completed. tw5 03:31 Arm band placed on. tw5 03:33 Parveen Gracia MD is Attending Physician. mh7 03:39 Cindy Altman, ANANYA is Primary Nurse. lg3 04:18 Patient has correct armband on for positive identification. Placed in gown. Bed in low lg3 position. Call light in reach. Side rails up X 1. Client placed on continuous cardiac and pulse oximetry monitoring. NIBP monitoring applied. Door closed. Noise minimized. Warm blanket given. 04:25 Missed attempt(s): 22 gauge in right forearm. lp1 04:30 Accessed peripheral vein via ultrasound, utilizing dynamic ultrasound technique using lp1 ,sterile technique, per hospital protocol. Clean \\T\\ dry. Dressing intact. Good blood return. Flushes easily. 22g IV to R FA. 04:30 Initial lab(s) drawn, by me, sent to lab. lp1 04:33 CBC with Diff Sent. lg3 04:33 CMP Sent. lg3 04:33 Lipase Sent. lg3 04:43 Lipase Sent. lg3 04:43 CMP Sent. lg3 04:43 CBC with Diff Sent. lg3 05:46 CT Abd/Pelvis - IV Contrast Only In Process Unspecified. EDMS 07:03 Attending Physician role handed off by Parveen Gracia MD ms3 07:03 Donato Borrego DO is Attending Physician. ms3 07:25 Simone Orourke MD is Hospitalizing Provider. ms3 Administered Medications: 04:41 Drug: NS 0.9% 1000 ml Route: IV; Rate: 1 bolus; Site: right forearm; lg3 07:06 Follow up: Response: No adverse reaction; IV Status: Completed infusion; IV Intake: lg3 1000ml 04:41 Drug: Zofran (Ondansetron) 4 mg Route: IVP; Site: right forearm; lg3 04:41 Follow up: Response: No adverse reaction lg3 04:41 Drug: morphine 2 mg Route: IVP; Infused Over: 4 mins; Site: right forearm; lg3 04:41 Follow up: Response: No adverse reaction lg3 Medication: 04:18 VIS not applicable for this client. lg3 Intake: 07:06 IV: 1000ml; Total: 1000ml. lg3 Outcome: 07:27 Decision to Hospitalize by Provider. ms3 15:32 Admitted to Tele accompanied by tech, room 206. jh6 15:32 Condition: stable 15:32 Instructed on the need for admit. 15:32 Patient left the ED. 6 Signatures: Dispatcher [employer] Hoda Varner, RN RN lp1 Cindy Altman RN RN lg3 Donato Borrego DO DO ms3 Parveen Gracia MD MD [facility] Araceli Duckworth [facility] Richelle Weber [facility] Patricia Tapia RN RN jh6
--- NOTE | 2021-10-06 07:28 | EDPHYS ---
Physician Documentation [facility] Name: Angela Rodriguez Age: 51 yrs Sex: Female : 1970 Arrival Date: 10/06/2021 Time: 03:21 Bed 20 Private MD: ED Physician Donato Borrego HPI: 10/06 03:57 This 51 yrs old Female presents to ER via Ambulatory with complaints of Abdominal Pain. mh7 03:57 The patient presents with abdominal pain in the lower abdomen. Onset: The mh7 symptoms/episode began/occurred last night, at 21:00. The symptoms do not radiate. Associated signs and symptoms: Pertinent positives: nausea, Pertinent negatives: anorexia, blood in stools, chest pain, constipation, diarrhea, dysuria, fever, headache, hematuria, palpitations, shortness of breath, vaginal discharge, vomiting, vomiting blood. The symptoms are described as intermittent, vague, waxing/waning. Modifying factors: The symptoms are alleviated by nothing, the symptoms are aggravated by nothing. Severity of pain: At its worst the pain was moderate last night, in the emergency department the pain is unchanged. The patient has experienced similar episodes in the past, multiple times. 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 - Social history:: Smoking status: Patient reports the use of cigarette tobacco products, 3 per da. ROS: 03:57 Constitutional: Negative for fever, chills, and weight loss, Eyes: Negative for injury, mh7 pain, redness, and discharge, ENT: Negative for injury, pain, and discharge, Neck: Negative for injury, pain, and swelling, Cardiovascular: Negative for chest pain, palpitations, and edema, Respiratory: Negative for shortness of breath, cough, wheezing, and pleuritic chest pain, Back: Negative for injury and pain, : Negative for injury, bleeding, discharge, and swelling, MS/Extremity: Negative for injury and deformity, Skin: Negative for injury, rash, and discoloration, Neuro: Negative for headache, weakness, numbness, tingling, and seizure, Psych: Negative for depression, anxiety, suicide ideation, homicidal ideation, and hallucinations, Allergy/Immunology: Negative for hives, rash, and allergies, Endocrine: Negative for neck swelling, polydipsia, polyuria, polyphagia, and marked weight changes, Hematologic/Lymphatic: Negative for swollen nodes, abnormal bleeding, and unusual bruising. Exam: 03:57 Head/Face: Normocephalic, atraumatic. Eyes: Pupils equal round and reactive to light, mh7 extra-ocular motions intact. Lids and lashes normal. Conjunctiva and sclera are non-icteric and not injected. Cornea within normal limits. Periorbital areas with no swelling, redness, or edema. Neck: Trachea midline, no thyromegaly or masses palpated, and no cervical lymphadenopathy. Supple, full range of motion without nuchal rigidity, or vertebral point tenderness. No Meningismus. Chest/axilla: Normal chest wall appearance and motion. Nontender with no deformity. No lesions are appreciated. Cardiovascular: Regular rate and rhythm with a normal S1 and S2. No gallops, murmurs, or rubs. Normal PMI, no JVD. No pulse deficits. Respiratory: Lungs have equal breath sounds bilaterally, clear to auscultation and percussion. No rales, rhonchi or wheezes noted. No increased work of breathing, no retractions or nasal flaring. Back: No spinal tenderness. No costovertebral tenderness. Full range of motion. Skin: Warm, dry with normal turgor. Normal color with no rashes, no lesions, and no evidence of cellulitis. MS/ Extremity: Pulses equal, no cyanosis. Neurovascular intact. Full, normal range of motion. Neuro: Awake and alert, GCS 15, oriented to person, place, time, and situation. Cranial nerves II-XII grossly intact. Motor strength 5/5 in all extremities. Sensory grossly intact. Cerebellar exam normal. Normal gait. Psych: Awake, alert, with orientation to person, place and time. Behavior, mood, and affect are within normal limits. 03:57 Constitutional: The patient appears in no acute distress, alert, awake, uncomfortable. 03:57 Abdomen/GI: Inspection: obese Bowel sounds: normal, Palpation: mild abdominal tenderness, in the suprapubic area, right lower quadrant and left lower quadrant, moderate abdominal tenderness, in the suprapubic area, right lower quadrant and left lower quadrant, mass, is not appreciated, rebound tenderness, is not appreciated, voluntary guarding, is not appreciated, involuntary guarding, is not appreciated, no appreciated organomegaly, Indicators: McBurney's point is not tender, Chang's sign is negative, Rovsing's sign is negative, Obturator sign is negative, Psoas sign is negative, Liver: no appreciated palpable abnormalities, Hernia: not appreciated. Vital Signs: 03:30 BP 96 / 67; Pulse 88; Resp 18; Temp 98.6; Pulse Ox 96% on R/A; Weight 83.91 kg; Height tw5 5 ft. 2 in. (157.48 cm); Pain 10/10; 05:16 BP 94 / 72; Pulse 84; Resp 16; Pulse Ox 97% on R/A; lg3 06:13 BP 100 / 72; Pulse 84; Resp 16; Pulse Ox 96% on R/A; lg3 06:40 BP 97 / 71; Pulse 88; Resp 16; Pulse Ox 95% on R/A; lg3 07:00 BP 107 / 71; Pulse 68; Resp 17; Pulse Ox 100% ; Pain 6/10; jh6 03:30 Body Mass Index 33.84 (83.91 kg, 157.48 cm) tw5 MDM: 07:27 Patient medically screened. ms3 07:28 Differential diagnosis: bowel obstruction, gastroesophageal reflux disease, ms3 non-specific abd pain. Data reviewed: vital signs, nurses notes, lab test result(s), radiologic studies, and as a result, I will admit patient. Counseling: I had a detailed discussion with the patient and/or guardian regarding: the historical points, exam findings, and any diagnostic results supporting the discharge/admit diagnosis, lab results, radiology results, the need for further work-up and treatment in the hospital. ED course: Discussed case with Dr Orourke and he accepts patient as admission. Discussed plan with patient and she understands/ agrees with plan. Patient remains in stable condition.. 10/06 03:49 Order name: CBC with Diff; Complete Time: 05:26 mh7 10/06 03:49 Order name: CMP; Complete Time: 05:26 7 10/06 03:49 Order name: Lipase; Complete Time: 05:26 7 10/06 06:14 Order name: Urine Dipstick-Ancillary; Complete Time: 06:19 EDMS 10/06 07:14 Order name: COVID-19 SARS RT PCR (Document "Date of Onset" if Symptomatic) bd 10/06 09:08 Order name: CBC with Automated Diff EDMS 10/06 03:49 Order name: CT Abd/Pelvis - IV Contrast Only [facility] 10/06 09:08 Order name: CBC with Automated Diff EDMS 10/06 09:08 Order name: Comprehensive Metabolic Panel EDMS 10/06 09:08 Order name: Comprehensive Metabolic Panel EDMS 10/06 09:08 Order name: Magnesium EDMS 10/06 09:08 Order name: Magnesium EDMS 10/06 09:08 Order name: Phosphorus EDMS 10/06 09:08 Order name: Phosphorus EDMS 10/06 03:49 Order name: IV Saline Lock; Complete Time: 04:33 [facility] 10/06 03:49 Order name: Labs collected and sent; Complete Time: 04:33 7 10/06 03:49 Order name: Urine Dipstick-Ancillary (obtain specimen); Complete Time: 06:13 [facility] 10/06 09:08 Order name: NPO EDMS Administered Medications: 04:41 Drug: NS 0.9% 1000 ml Route: IV; Rate: 1 bolus; Site: right forearm; lg3 07:06 Follow up: Response: No adverse reaction; IV Status: Completed infusion; IV Intake: lg3 1000ml 04:41 Drug: Zofran (Ondansetron) 4 mg Route: IVP; Site: right forearm; lg3 04:41 Follow up: Response: No adverse reaction lg3 04:41 Drug: morphine 2 mg Route: IVP; Infused Over: 4 mins; Site: right forearm; lg3 04:41 Follow up: Response: No adverse reaction lg3 Disposition Summary: 10/06/21 07:27 Hospitalization Ordered Hospitalization Status: Inpatient Admission ms3 Provider: Simone Orourke ms3 Condition: Stable ms3 Problem: new ms3 Symptoms: are unchanged ms3 Bed/Room Type: Standard ms3 Location: Telemetry/MedSurg (Inpatient)(10/06/21 13:38) bd Room Assignment: 208(10/06/21 13:38) bd Diagnosis - Small Bowel obstruction ms3 - Crohn's disease, unspecified, with unspecified complications ms3 Forms: - Medication Reconciliation Form ms3 - SBAR form ms3 Signatures: Dispatcher [employer] EDMS Xi Lopes Shelby, RN RN ss Cindy Altman RN RN 3 Donato Borrego DO DO ms3 Parveen Gracia MD MD 7 Richelle Weber 5 Corrections: (The following items were deleted from the chart) 09:15 07:27 Telemetry/MedSurg (Inpatient) ms3 ss 09:15 07:27 ms3 ss 13:38 09:15 [facility] ER HOLD ss bd 13:38 09:15 ERHOLD- ss bd
--- NOTE | 2021-10-06 08:06 | P.HP ---
Certification for Inpatient Patient admitted to: Observation With expected LOS: <2 Midnights Practitioner: I am a practitioner with admitting privileges, knowledge of patient current condition, hospital course, and medical plan of care. Services: Services provided to patient in accordance with Admission requirements found in Title 42 Section 412.3 of the Code of Federal Regulations Patient History Date of Service: 10/06/21 Reason for admission: Small bowel obstruction, abdominal pain. History of Present Illness: 51-year-old female patient with medical history significant for Crohn's disease status post multiple back surgery, history of depression and hyperlipidemia was evaluated in the emergency room for episode of abdominal pain. Pain started the day prior to admission. She denied overt episode of nausea, fever, chills. She did have some mild diarrhea prior to the incident. She was evaluated in the emergency room and found to have small bowel obstruction on imaging and she was admitted for inpatient evaluation. Lab work showed no significant electrolyte abnormalities. Allergies promethazine [From Phenergan] Allergy (Verified 11/22/17 20:55) Twitching ciprofloxacin Adverse Reaction (Verified 11/22/17 20:55) Itching Home Medications: Escitalopram Oxalate [Lexapro] 10 mg PO DAILY 10/16/18 Pantoprazole [Protonix Tab*] 40 mg PO BID 10/16/18 clonazePAM [Klonopin*] 1 mg PO QID PRN 10/16/18 predniSONE [Deltasone] 20 mg PO BID #10 tablet 10/16/18 - Past Medical/Surgical History Diabetic: No -: Crohns -: Endometriosis -: Titanium plate on right wrist a month ago -: PAin pump on RLQ -11/20/17- battery changed -: Hysterectomy - Social History Alcohol use: No CD- Drugs: No Caffeine use: Yes Review of Systems General: Unremarkable Eyes: Unremarkable ENT: Unremarkable Respiratory: Unremarkable Cardiovascular: Unremarkable Gastrointestinal: Nausea, Abdominal Pain Genitourinary: Unremarkable Musculoskeletal: Unremarkable Integumentary: Unremarkable Neurological: Unremarkable Physical Examination - Physical Exam General: Alert, Oriented x3 HEENT: Atraumatic, Normocephalic Neck: Supple Respiratory: Normal air movement Cardiovascular: Regular rate/rhythm, Normal S1 S2 Gastrointestinal: Tenderness Musculoskeletal: No swelling Neurological: Normal speech, Normal strength at 5/5 x4 extr - Studies Laboratory Data (last 24 hrs) 10/06/21 04:30: Sodium 138, Potassium 3.9, BUN 12, Creatinine 0.78, Glucose 101, Total Bilirubin 0.3, AST 12 L, ALT 23, Alkaline Phosphatase 56, Lipase 130 10/06/21 04:30: WBC 9.7, Hgb 13.6, Hct 40.9, Plt Count 306 Assessment and Plan - Plan Small bowel obstruction: Imaging studies is confirmatory of bowel obstruction. Will keep NPO for bowel rest. Continue IV pain control with Dilaudid. Will continue IV fluid for hydration. She will be evaluated by surgeon for management recommendation Prophylaxis: Lovenox for DVT prophylaxis. CODE STATUS: Full code. Disposition: For possible discharge in next 48h once bowel obstruction is relieved. - Advance Directives Does patient have a Living Will: No Does patient have a Durable POA for Healthcare: No
[2021-10-06] MEDS ORDERED: ONDANSETRON 4 MG/2 ML VIAL IV PRN (08:59)
[2021-10-06] MEDS: ENOXAPARIN 40 MG/0.4 ML SQ SCH (09:00)
[2021-10-06] MEDS: Ringers Lactate 1,000 ML IV SCH ×2 (10:00→21:02)
[2021-10-06] MEDS ORDERED: ENOXAPARIN 40 MG/0.4 ML SQ ONE (12:35)
[2021-10-06] MEDS ORDERED: Ringers Lactate 1,000 ML IV ONE (12:35)
--- NOTE | 2021-10-06 12:58 | RAD REPORT ---
EXAM DESCRIPTION: CT ABDOMEN PELVIS WITH IV CONTRAST CLINICAL HISTORY: Abdominal pain, acute, nonlocalized COMPARISON: 09/07/2021. TECHNIQUE: CT ABDOMEN PELVIS WITH IV CONTRAST on 10/06/2021 3:49 AM CDT This exam was performed accord ing to our departmental dose-optimization program, which includes automated exposure control, adjustm ent of the mA and/or kV according to patient size and/or use of iterative reconstruction technique. FINDINGS: Lower lungs are clear.Abdomen: The liver is normal in appearance. There is no biliary dila tation. Cholecystectomy was performed. The pancreas and spleen are normal in appearance. Adrenal glan ds are normal. Kidneys are mildly atrophic. There are several scattered simple appearing bilateral re nal cysts measuring up to 3.5 cm. These do not require follow-up. There is a baclofen type height wit hin the right lower quadrant subcutaneous fat. Abdominal aorta is normal in course and caliber withou t aneurysm. There is no free air. There is no retroperitoneal adenopathy.Pelvis: There are several di lated small bowel loops in the level of the ileocecal valve. Urinary bladder is unremarkable. There i s no free fluid. Hysterectomy was performed.Skeleton: There are no acute osseous findings. No suspici ous bony lesions. IMPRESSION: Suspect distal small bowel obstruction. Electronically signed by: Guido Steen MD 10/06/2021 6:46 AM CDT Due to temporary technical issues with the PACS/Fluency reporting system, reports are being signed by the in house radiologist without review as a courtesy to ensure prompt reporting. The interpreting r adiologist is fully responsible for the content of the report.
[2021-10-06 14:56] VITALS: BMI 33.8
[2021-10-06] MEDS: HYDROMORPHONE HCL 0.5 MG/0.5 ML INJ IV PRN ×2 (17:12→21:02)
[2021-10-07] MEDS: HYDROMORPHONE HCL 0.5 MG/0.5 ML INJ IV PRN ×6 (01:10→21:19)
[2021-10-07 06:46] LABS: Absolute Lymphocytes (CBC) 2.1 K/uL (0.7-4.9); Hematocrit 35.9 % (36.0-45.0); Lymphocytes % 46.2 % (15.3-44.8); RBC Red Blood Cell Count 3.91 M/uL (3.86-4.86)
[2021-10-07 07:00] LABS: Albumin 2.7 g/dL (3.4-5.0); Bilirubin Total 0.3 mg/dL (0.2-1.0); Magnesium 2.2 mg/dL (1.8-2.4); Phosphorus 2.7 mg/dL (2.5-4.9); Potassium 3.8 mmol/L (3.5-5.1); Protein, Total 5.5 g/dL (6.4-8.2)
[2021-10-07] MEDS: ENOXAPARIN 40 MG/0.4 ML SQ SCH (08:58)
[2021-10-07] MEDS: Ringers Lactate 1,000 ML IV SCH ×2 (08:59→17:16)
[2021-10-07] MEDS ORDERED: KCL 20 MEQ/100 mL IVPB 20 MEQ/100 ML BAG IV SCH (10:00)
[2021-10-07] MEDS ORDERED: POTASSIUM 25 MEQ EFFERV TAB PO ONE (14:00)
[2021-10-08] MEDS: Ringers Lactate 1,000 ML IV SCH ×3 (01:34→21:27)
[2021-10-08] MEDS: HYDROMORPHONE HCL 0.5 MG/0.5 ML INJ IV PRN ×5 (01:35→21:26)
[2021-10-08 07:03] LABS: Potassium 4.1 mmol/L (3.5-5.1)
[2021-10-08] MEDS: ENOXAPARIN 40 MG/0.4 ML SQ SCH (08:59)
[2021-10-08] MEDS ORDERED: SODIUM CHLORIDE 0.9% 20 ML VIAL IV PRN (11:01)
[2021-10-08] MEDS: SUCRALFATE 1 GM TABLET PO SCH ×3 (11:56→21:26)
[2021-10-08] MEDS: PANTOPRAZOLE 40 MG INJ IVP SCH ×2 (11:56→21:26)
--- NOTE | 2021-10-08 12:10 | RAD REPORT ---
EXAM DESCRIPTION: RAD - Abdomen 1 View (KUB) - 10/08/2021 11:50 am CLINICAL HISTORY: Abdomen pain FINDINGS: Mildly dilated small bowel loops have diminished caliber since the prior exam. There is ai r within portions of the colon. This has the appearance of an improving partial small bowel obstruction
--- NOTE | 2021-10-08 18:19 | P.PN ---
Subjective Date of Service: 10/08/21 Chief Complaint: Small bowel obstruction, abdominal pain. Subjective: No new changes, Improving Physical Examination - Vital Signs Temperature: 97.6 F Blood Pressure: 119/63 Pulse: 68 Respirations: 16 Pulse Ox (%): 98 Assessment And Plan - Plan Small bowel obstruction: Imaging studies is confirmatory of bowel obstruction. Will keep NPO for bowel rest. Continue IV pain control with Dilaudid. Will continue IV fluid for hydration. She will be evaluated by surgeon for management recommendation Prophylaxis: Lovenox for DVT prophylaxis. CODE STATUS: Full code. Disposition: For possible discharge in next 48h once bowel obstruction is relieved.
--- NOTE | 2021-10-08 18:19 | P.PN ---
Subjective Date of Service: 10/08/21 Chief Complaint: Small bowel obstruction, abdominal pain. Physical Examination - Vital Signs Temperature: 97.6 F Blood Pressure: 119/63 Pulse: 68 Respirations: 16 Pulse Ox (%): 98 Assessment And Plan - Plan Small bowel obstruction: Imaging studies is confirmatory of bowel obstruction. Will keep NPO for bowel rest. Continue IV pain control with Dilaudid. Will continue IV fluid for hydration. She will be evaluated by surgeon for management recommendation Prophylaxis: Lovenox for DVT prophylaxis. CODE STATUS: Full code. Disposition: For possible discharge in next 48h once bowel obstruction is relieved.
[2021-10-09] MEDS: HYDROMORPHONE HCL 0.5 MG/0.5 ML INJ IV PRN ×6 (01:27→23:52)
[2021-10-09 02:45] VITALS: O2SAT 94
[2021-10-09] MEDS: Ringers Lactate 1,000 ML IV SCH ×4 (06:41→17:56)
[2021-10-09] MEDS: SUCRALFATE 1 GM TABLET PO SCH ×4 (07:54→20:01)
[2021-10-09] MEDS: ENOXAPARIN 40 MG/0.4 ML SQ SCH (07:54)
[2021-10-09] MEDS: PANTOPRAZOLE 40 MG INJ IVP SCH ×2 (07:54→20:00)
--- NOTE | 2021-10-09 16:27 | P.PN ---
Subjective Date of Service: 10/09/21 Chief Complaint: Small bowel obstruction, abdominal pain. Physical Examination - Vital Signs Temperature: 97.8 F Blood Pressure: 114/75 Pulse: 67 Respirations: 18 Pulse Ox (%): 97 Assessment And Plan - Plan Small bowel obstruction: Imaging studies is confirmatory of bowel obstruction. Will keep NPO for bowel rest. Continue IV pain control with Dilaudid. Will continue IV fluid for hydration. She will be evaluated by surgeon for management recommendation Prophylaxis: Lovenox for DVT prophylaxis. CODE STATUS: Full code. Disposition: For possible discharge in next 48h once bowel obstruction is relieved.
[2021-10-10] MEDS: Ringers Lactate 1,000 ML IV SCH (02:17)
[2021-10-10] MEDS: HYDROMORPHONE HCL 0.5 MG/0.5 ML INJ IV PRN ×2 (04:12→08:48)
[2021-10-10] MEDS: ENOXAPARIN 40 MG/0.4 ML SQ SCH (08:47)
[2021-10-10] MEDS: PANTOPRAZOLE 40 MG INJ IVP SCH (08:47)
[2021-10-10] MEDS: SUCRALFATE 1 GM TABLET PO SCH ×2 (08:47→11:36)
[2021-10-10 08:54] VITALS: BP 131/81; TEMP 97.3
--- NOTE | 2021-10-10 10:26 | P.DS ---
Admission Date: 10/06/21 Discharge Date: 10/10/21 Disposition: ROUTINE DISCHARGE Discharge Condition: GOOD Reason for Admission: Small bowel obstruction, abdominal pain. Brief History of Present Illness: 51-year-old female patient with medical history significant for Crohn's disease status post multiple back surgery, history of depression and hyperlipidemia was evaluated in the emergency room for episode of abdominal pain. Pain started the day prior to admission. She denied overt episode of nausea, fever, chills. She did have some mild diarrhea prior to the incident. She was evaluated in the emergency room and found to have small bowel obstruction on imaging and she was admitted for inpatient evaluation. Lab work showed no significant electrolyte abnormalities. Hospital Course: Was admitted to the inpatient service and put on n.p.o. with IV fluid and pain control medication. Over the course of hospital stay abdominal pain persistent for the most part however she began to have bowel motions and was passing gas. She was started on liquid diet and she tolerated this and had significant mount of bowel motions. Repeat imaging showed resolution of bowel obstruction and she was started on pantoprazole and sucralfate for additional therapy for management of suspected irritation in the GI tract. She responded well to therapy and she became more stable. Today she is deemed stable for discharge to continue with regular diet and to follow-up with her primary care doctor and surgeon on outpatient. She was given a prescription of sucralfate and she is to continue oral pantoprazole therapy on discharge. Vital Signs/Physical Exam: Temp Pulse Resp BP Pulse Ox 97.3 F 52 18 131/81 97 10/10/21 08:00 10/10/21 08:00 10/10/21 08:00 10/10/21 08:00 10/10/21 08:00 General: Alert, Oriented x3 HEENT: Atraumatic, Normocephalic Neck: Supple Respiratory: Normal air movement Cardiovascular: Regular rate/rhythm, Normal S1 S2 Gastrointestinal: Soft and benign Musculoskeletal: No swelling Neurological: Normal speech Laboratory Data at Discharge: WBC 4.5 K/uL (4.3-10.9) D 10/07/21 06:14 Hgb 12.1 g/dL (12.0-15.0) 10/07/21 06:14 Hct 35.9 % (36.0-45.0) L 10/07/21 06:14 Plt Count 243 K/uL (152-406) D 10/07/21 06:14 Sodium 142 mmol/L (136-145) 10/08/21 06:33 Potassium 4.1 mmol/L (3.5-5.1) 10/08/21 06:33 BUN 5 mg/dL (7-18) L 10/08/21 06:33 Creatinine 0.68 mg/dL (0.55-1.3) 10/08/21 06:33 Glucose 95 mg/dL (74-106) 10/08/21 06:33 Phosphorus 2.7 mg/dL (2.5-4.9) 10/07/21 06:24 Magnesium 2.2 mg/dL (1.8-2.4) 10/07/21 06:24 Total Bilirubin 0.3 mg/dL (0.2-1.0) 10/07/21 06:24 AST 12 U/L (15-37) L 10/07/21 06:24 ALT 17 U/L (12-78) 10/07/21 06:24 Alkaline Phosphatase 49 U/L (45-117) 10/07/21 06:24 Lipase 130 U/L (73-393) 10/06/21 04:30 Home Medications: Escitalopram Oxalate [Lexapro] 10 mg PO DAILY 10/16/18 Pantoprazole [Protonix Tab*] 40 mg PO BID 10/16/18 clonazePAM [Klonopin*] 1 mg PO TID 10/16/18 Baclofen [Lioresal] 20 mg PO QID 10/06/21 Buspirone HCl [Buspar] 10 mg PO QID 10/06/21 Estradiol [Estrace] 1 mg PO DAILY 10/06/21 Fluticasone Furoate [Arnuity Ellipta] 50 mcg JAYJAY DAILY 10/06/21 Gabapentin [Neurontin] 600 mg PO QID PRN 10/06/21 Varenicline Tartrate [Chantix] 1 mg PO BIDWM 10/06/21 Sucralfate [Carafate*] 1 gm PO ACHS 7 Days #28 tab 10/10/21 New Medications: Sucralfate [Carafate*] 1 gm PO ACHS 7 Days #28 tab Diet: Regular Activity: Ad ankit Followup: Merari Pickett FNP [Primary Care Provider] -
== END 2021-10-10 12:30 | disposition home or self-care (01) | DRG 389 ==
LOC: ER 03:19 → ERHOLD 09:05 → 2ND 15:13 → OBSVTOIN 19:59
PROVIDERS: ADMIT Internal Medicine Nephrology; ATTEND Internal Medicine Nephrology
DX: K56.609 Unspecified intestinal obstruction, unspecified as to partial versus complete obstruction (principal); K50.90 Crohn's disease, unspecified, without complications; F32.A Depression, unspecified; E78.5 Hyperlipidemia, unspecified; Z20.822 Contact with and (suspected) exposure to COVID-19
CPT/HCPCS: 36415; 74018; 74177; 80048; 80053; 81003; 82947; 83690; 83735; 84100; 85025; 96361; 96374; 96375; 99285; C9113; G0378; J1170; J1650; J2270; J2405; J3480; J7030; J7120; Q9967; U0003

== ENCOUNTER 2021-11-13 06:18 | Inpatient (IN) | payer OTHER ==
[2021-11-13 07:02] LABS: Absolute Lymphocytes (CBC) 1.3 K/uL (0.7-4.9); Hematocrit 40.4 % (36.0-45.0); Lymphocytes % 14.2 % (15.3-44.8); MCV 93.4 fL (80-100); MPV 6.1 fL (7.6-11.3); RBC Red Blood Cell Count 4.33 M/uL (3.86-4.86)
[2021-11-13] MEDS ORDERED: FAMOTIDINE 20 MG/2 ML VIAL IV ONE (07:04)
[2021-11-13] MEDS ORDERED: NA CHLORIDE 0.9% 1,000 ML ONE ×2 (07:04→09:02)
[2021-11-13] MEDS ORDERED: MORPHINE 4 MG/ML SYR ONE ×2 (07:04→09:23)
[2021-11-13] MEDS ORDERED: ONDANSETRON 4 MG/2 ML VIAL ONE ×3 (07:04→14:57)
[2021-11-13 07:18] LABS: Albumin 3.8 g/dL (3.4-5.0); Bilirubin Total 0.4 mg/dL (0.2-1.0); Potassium 4.3 mmol/L (3.5-5.1); Protein, Total 7.4 g/dL (6.4-8.2)
[2021-11-13] MEDS ORDERED: HYDROCORTISONE SUC 100 MG INJ ONE (08:18)
[2021-11-13] MEDS ORDERED: DIAZEPAM 10 MG/2 ML INJ SYRINGE ONE (08:26)
--- NOTE | 2021-11-13 08:36 | RAD REPORT ---
EXAM DESCRIPTION: CT - Abdomen Pelvis W Contrast - 11/13/2021 8:05 am CLINICAL HISTORY: Abdominal pain, acute, nonlocalized COMPARISON: Abdomen Pelvis W Contrast dated 10/06/2021; Abdomen Pelvis W Contrast dated 09/10/2020 TECHNIQUE: Biphasic, helical CT imaging of the abdomen and pelvis was performed following 100 ml non -ionic IV contrast. No oral contrast administered. All CT scans are performed using dose optimization technique as appropriate and may include automated exposure control or mA/KV adjustment according to patient size. FINDINGS: No suspicious findings in the lung bases. The liver, spleen, and pancreas show no suspicious findings. Gallbladder is absent. Intrahepatic and extrahepatic biliary tree dilatation present similar to the prior study. This is believed to be the r eservoir affect that occurs after a cholecystectomy. Correlation can be made with any laboratory or c linical findings that would suggest duct stone or mass as an alternative to the etiology. Symmetric renal function is seen with no hydronephrosis or suspicious renal mass. Stable bilateral re nal cysts are present. Left renal cyst has a punctate rim calcification. No pyelonephritis or acute p arenchymal process. No bladder abnormalities. No adrenal abnormalities. Fluid-filled stomach is present. Lora of the antrum are mildly thickened and similar to October 06 study . This is probably peristalsis artifact. No stranding in the adjacent fat. Correlation can be made wi th any epigastric pain symptoms. Colon is not dilated mostly decompressed. Sigmoid colon is quite redundant looping into the right upp er quadrant adjacent to the liver. Duodenum is normal in diameter. Proximal jejunum is also normal in diameter. There is progressive dilatation of the distal jejunum. Ileum loops are fluid-filled and di lated. This continues to the small bowel right colon anastomosis. Discrete mass at the anastomosis is not seen. There may be stricture or adhesion near the anastomosis. No free air or pneumatosis. Trace amount of free fluid is adjacent to the anterior superior liver cap arpita and in the dependent portion of the pelvis. No hernia, mass or bulky lymphadenopathy. Pain pump is present in the right lower quadrant subcutaneous fatty tissues. No acute bone findings seen. Provided history indicates the avascular necrosis. This would not be at the femoral heads. No acute vascular finding. IMPRESSION: Distal small bowel obstruction pattern extending to the small bowel colon anastomosis in the right lower quadrant. No mass is seen. There is possibly scarring or adhesion at or near the jessica stomosis. No free air or other findings of perforation. Stable biliary tree dilatation believed to be the reservoir effect after cholecystectomy. Thickening of the lora of the gastric antrum similar to October 06 imaging. This is probably peristalsis artifact. Correlation can be made with any clinical findings suggesting antritis.
[2021-11-13 08:41] LABS: Urine Blood Negative (Negative); Urine Glucose Negative (Negative); Urine Protein Negative (Negative)
--- NOTE | 2021-11-13 08:53 | ER ---
Nurse's Notes [facility] Name: Angela Rodriguez Age: 51 yrs Sex: Female : 1970 Arrival Date: 11/13/2021 Time: 06:24 Bed 6 Private MD: Diagnosis: Abdominal pain, Generalized;Other intestinal obstruction-Small Bowel Obstruction;Crohn's disease, unspecified, without complications-history of Presentation: 11/13 06:34 Chief complaint: Patient states: C/o N/V and abdominal pain since 3 AM. Coronavirus tw5 screen: Vaccine status: Patient reports receiving the 2nd dose of the covid vaccine. nausea, vomiting. Ebola Screen: No symptoms or risks identified at this time. Initial Sepsis Screen: Does the patient meet any 2 criteria? No. Patient's initial sepsis screen is negative. Does the patient have a suspected source of infection? No. Patient's initial sepsis screen is negative. Risk Assessment: Do you want to hurt yourself or someone else? Patient reports no desire to harm self or others. Onset of symptoms was November 13, 2021 at 03:00. 06:34 Method Of Arrival: Wheelchair tw5 06:34 Acuity: LIZZY 3 tw5 Triage Assessment: 06:35 General: Appears uncomfortable, Behavior is calm, cooperative. Pain: Complains of pain tw5 in right lower quadrant and left lower quadrant Pain currently is 10 out of 10 on a pain scale. Pain began 3 hours ago. Is continuous. Neuro: Level of Consciousness is awake, alert, obeys commands, Oriented to person, place, time, situation. Respiratory: Respiratory effort is even, unlabored, Respiratory pattern is regular, symmetrical. GI: Abdomen is round non-distended, Pt is actively vomiting Reports lower abdominal pain, nausea, vomiting, since 0300. Derm: Skin is pink, warm \\T\\ dry. 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 - Hysterectomy Historical: - Allergies: 06:35 Ciprofloxacin; tw 06:35 Phenergan; tw - Home Meds: 07:28 buspirone 10 mg Oral tab 1 tab 3 times per day [Active]; cholecalciferol (vitamin D3) tw5 50 mcg (2,000 unit) Oral cap daily [Active]; Cholestyramine Light 4 gram Oral powd 1 scoop daily [Active]; clonazepam 1 mg Oral tab 1 tab 3 times per day [Active]; escitalopram oxalate 10 mg Oral tab 1 tab once daily [Active]; estradiol 1 mg Oral tab 1 tab once daily [Active]; ferrous sulfate 325 mg (65 mg iron) Oral TbEC 325 mg twice a day [Active]; fluconazole 150 mg Oral tab 1 tab [Active]; gabapentin 300 mg Oral Tb24 1 tab once daily [Active]; montelukast 10 mg Oral tab 1 tab once daily [Active]; pantoprazole 40 mg Oral grps 1 packet 2 times per day [Active]; phenazopyridine 200 mg Oral tab 1 tab 3 times per day [Active]; - PMHx: 06:35 adrenal insufficiency; avascular necrosis; Bipolar disorder; Chronic pain; Crohn's; tw5 Endometrosis; Hypothyroidism; - PSHx: 06:35 bowel resection; section; Cholecystectomy; knee; Total abdominal hysterectomy; tw5 wrist; - Immunization history:: Client reports receiving the 2nd dose of the Covid vaccine. - Social history:: Smoking status: Patient denies any tobacco usage or history of. Screenin:48 Abuse screen: Denies threats or abuse. Nutritional screening: No deficits noted. ha1 Tuberculosis screening: No symptoms or risk factors identified. Fall Risk IV access (20 points). Gait- Weak (10 pts.). Total Walters Fall Scale indicates Low Risk Score (25-44 pts). Fall prevention measures have been instituted. Side Rails Up X 2 Placed close to Nursing Station Frequent Obs/Assesments occuring As available Patient and Family Educated on Fall Prevention Program and strategies. Assessment: 06:38 General: See triage assessment. tw5 07:00 Reassessment: Report received from car shifter RN. ll1 07:30 Reassessment: No changes from previously documented assessment. Patient and/or family ll1 updated on plan of care and expected duration. Pain level reassessed. 08:36 Reassessment: Patient and/or family updated on plan of care and expected duration. Pain ha1 level reassessed. Reassessment: Patient and/or family updated on plan of care and expected duration. Pain level reassessed. General: Appears comfortable, Behavior is calm, cooperative. Pain: Alleviated by medications, states pain is at 3 on a scale 1-10. 09:30 Reassessment: Patient and/or family updated on plan of care and expected duration. Pain ha1 level reassessed. Patient is alert, oriented x 3, equal unlabored respirations, skin warm/dry/pink. 09:46 GI: Bowel sounds present X 4 quads. Abd is soft Abdomen is tender to palpation in right ha1 lower quadrant and left lower quadrant. 10:10 Reassessment: Patient is alert, oriented x 3, equal unlabored respirations, skin ha1 warm/dry/pink. pain at 3 on a scale of 1-10. Patient states feeling better. 11:00 Reassessment: Patient is alert, oriented x 3, equal unlabored respirations, skin ha1 warm/dry/pink. Pain: Complains of pain in abdomen and left lower quadrant and right lower quadrant Pain at worst was 7 out of 10 on a pain scale. Quality of pain is described as aching, crampy, Pain began 0400. 12:04 Reassessment: Patient is alert, oriented x 3, equal unlabored respirations, skin ha1 warm/dry/pink. Reassessment: pain decreased at 2/10 Patient states feeling better. Patient states symptoms have improved. 13:08 Reassessment: Patient and/or family updated on plan of care and expected duration. Pain ha1 level reassessed. Patient is alert, oriented x 3, equal unlabored respirations, skin warm/dry/pink. Patient states symptoms have improved. Reassessment: denies pain. stated "I only have nasal discomfort due to this tube". notified Dr. Cooley. 13:40 Reassessment: No changes from previously documented assessment. Patient and/or family kr3 updated on plan of care and expected duration. Pain level reassessed. 13:43 Reassessment: No changes from previously documented assessment. can no longer tolerate kr3 NG tube in her nare. It's giving her a sinus CELIS. NG tube pulled at patients request. Tolerated removal well. 14:50 Reassessment: Patient and/or family updated on plan of care and expected duration. Pain ha1 level reassessed. Patient is alert, oriented x 3, equal unlabored respirations, skin warm/dry/pink. Patient states feeling better. Patient states symptoms have improved. stated " I am feeling better without the tube". 14:50 Neuro: Level of Consciousness is awake, alert. ha1 16:00 Reassessment: Patient and/or family updated on plan of care and expected duration. Pain ha1 level reassessed. Patient is alert, oriented x 3, equal unlabored respirations, skin warm/dry/pink. Patient states symptoms have improved. . 17:05 Reassessment: Patient and/or family updated on plan of care and expected duration. Pain ha1 level reassessed. Pain: Pain at worst was 7 out of 10 on a pain scale. Alleviated by medications. Neuro: Level of Consciousness is awake, alert, Oriented to person, place, time, situation. Vital Signs: 06:34 BP 114 / 93; Pulse 83; Resp 18; Temp 97.8(TE); Pulse Ox 97% on R/A; Weight 72.57 kg tw5 (R); Height 5 ft. 2 in. (157.48 cm) (R); Pain 10/10; 07:30 BP 125 / 86; Pulse 81; Resp 15; ha1 08:17 BP 116 / 82 RA Supine; Pulse 78; Resp 16 S; Pulse Ox 99% on 2 lpm NC; Pain 6/10; ha1 08:41 BP 116 / 82 RA Supine; Pulse 77; Resp 16 S; Pulse Ox 100% on 2 lpm NC; Pain 3/10; ha1 10:05 BP 129 / 92 RA Supine; Pulse 91; Resp 15 S; Pulse Ox 96% on 2 lpm NC; Pain 3/10; ha1 11:26 BP 126 / 88 RA Supine; Pulse 91; Resp 16 S; Pulse Ox 95% on 2 lpm NC; Pain 7/10; ha1 13:16 BP 137 / 96 RA Supine; Pulse 100; Resp 16 S; Pulse Ox 99% on 2 lpm NC; ha1 14:30 BP 108 / 80; Pulse 102; Resp 16 S; Pulse Ox 95% on 2 lpm NC; kr3 15:30 BP 100 / 73 RA Supine; Pulse 92; Resp 14 S; Pulse Ox 100% on 2 lpm NC; kr3 16:30 BP 100 / 64 RA Supine; Pulse 83; Resp 14 S; Pulse Ox 97% on 2 lpm NC; Pain 3/10; kr3 17:00 BP 106 / 74 LA Supine; Pulse 88; Resp 15 S; Pulse Ox 97% on 2 lpm NC; Pain 310; kr3 17:30 BP 121 / 87; Pulse 86; Resp 14; Pulse Ox 100% on 2 lpm NC; Pain 6/10; ha1 06:34 Body Mass Index 29.26 (72.57 kg, 157.48 cm) tw5 ED Course: 06:24 Patient arrived in ED. bp1 06:35 Triage completed. tw5 06:35 Arm band placed on Patient placed in an exam room, on a stretcher, on pulse oximetry. tw5 06:55 Richelle Weber is Primary Nurse. tw5 06:55 Initial lab(s) drawn, by me, sent to lab. Inserted saline lock: 20 gauge in right tw5 forearm, using aseptic technique. Blood collected. ultrasound guided. 06:56 CBC with Diff Sent. tw5 06:56 CMP Sent. tw5 06:56 Lipase Sent. tw5 07:07 Parveen Gracia MD is Attending Physician. [facility] 07:19 Jorge Alberto Cooley MD is Attending Physician. no 07:50 Patient has correct armband on for positive identification. Bed in low position. Call ha1 light in reach. Side rails up X2. Client placed on continuous cardiac and pulse oximetry monitoring. NIBP monitoring applied. classroom monitor on. 08:07 Abdomen In Process Unspecified. EDMS 08:49 Yair Black is Hospitalizing Provider. no 09:33 Abdomen 1 View (KUB) In Process Unspecified. EDMS 09:39 NGT: inserted 16 Fr. via left nare. verified placement of air over stomach, verified ha1 return of gastric contents, to intermittent suction. Returned gastric contents. Returned bile. Amount of gastric contents removed by suction 550ml. Patient tolerated well. 09:42 Primary Nurse role handed off by Richelle Weber ll1 09:42 Brayden Hightower, RN is Primary Nurse. ll1 10:45 Patient has correct armband on for positive identification. Bed in low position. Call ha1 light in reach. Side rails up X2. Warm blanket given. Pillow given. assisted pt. to bed commode. 11:59 Rosendo Mcdonough MD is Hospitalizing Provider. no 13:38 Notified the admitting physician of cannot tolerate NG tube in nare. States its very kr3 uncomfortable and giving her a sinus CELIS. Dr. Mcdonough informed. Clamped NG, and patient drinking clear liquids now. 17:15 Call light in reach. Side rails up X2. Assisted to bedside commode. pt. back in the bed ha1 denies concerns. 17:58 No provider procedures requiring assistance completed. ha1 Administered Medications: 07:34 Drug: morphine 4 mg {Note: pain 10/10 rass 0.} Route: IVP; Infused Over: 4 mins; Site: ha left forearm; 08:32 Follow up: Response: No adverse reaction; Pain is decreased; RASS: Alert and Calm (0) 1 07:35 Drug: Pepcid (famotidine) 20 mg Route: IVP; Site: right forearm; ha1 08:34 Follow up: Response: No adverse reaction 1 07:35 Drug: Zofran (Ondansetron) 4 mg Route: IVP; Site: right forearm; ha1 08:35 Follow up: Response: No adverse reaction 1 07:36 Drug: NS 0.9% 1000 ml Route: IV; Rate: 1 bolus; Site: left forearm; ha1 09:36 Follow up: Response: No adverse reaction; IV Status: Completed infusion; IV Intake: ll1 1000ml 08:24 Drug: Solu-CORTEF (hyrdoCORTISONE) 100 mg Route: IVP; Site: left forearm; ha1 13:40 Follow up: Response: No adverse reaction kr3 08:25 Drug: Valium (diazepam) 2 mg Route: IVP; Site: left forearm; 1 13:42 Follow up: Response: No adverse reaction; RASS: Alert and Calm (0) kr3 09:30 Drug: morphine 4 mg {Note: pain at 6 of 10 rass 0.} Route: IVP; Infused Over: 4 mins; [facility] Site: left forearm; 10:22 Follow up: Response: No adverse reaction; Pain is decreased; RASS: Alert and Calm (0) 1 09:35 Drug: NS 0.9% 1000 ml Route: IV; Rate: 1 bolus; Site: left forearm; ll1 10:35 Follow up: Response: No adverse reaction; IV Status: Completed infusion; IV Intake: ll1 1000ml 11:00 Drug: Lactated Ringers Solution 1000 ml Route: IV; Rate: 125 ml/hr; Site: left forearm; ll1 18:00 Follow up: Response: No adverse reaction; IV Status: Completed infusion; IV Intake: ha1 750ml 11:45 Drug: Zofran (Ondansetron) 4 mg Route: IVP; Site: left forearm; ha1 13:41 Follow up: Response: No adverse reaction kr3 11:46 Drug: Dilaudid (HYDROmorphone) 1 mg {Note: pain at 7 out of 10. rass 0.} Route: IVP; ha1 Site: left forearm; 13:41 Follow up: Response: No adverse reaction; Pain is decreased; RASS: Alert and Calm (0) kr3 13:08 Drug: Lidocaine Gel 2 % 1 application Route: Mucous Membrane; ha1 13:15 Follow up: Response: No adverse reaction; Pain is decreased; RASS: Alert and Calm (0) ha1 Medication: 08:49 VIS not applicable for this client. ha1 Intake: 09:36 IV: 1000ml; Total: 1000ml. ll1 10:35 IV: 1000ml; Total: 2000ml. ll1 11:28 PO: 100ml (Water); Total: 2100ml. ha1 18:00 IV: 750ml; Total: 2850ml. ha1 Output: 11:28 Gastric: 650ml (NGT); Total: 650ml. ha1 Outcome: 08:51 Decision to Hospitalize by Provider. [facility] 17:31 Admitted to Med/surg accompanied by tech, via stretcher, room 202, with oxygen, with kr3 chart, Report called to ANANYA Schilling 17:31 Condition: stable 18:26 Patient left the ED. ll1 Signatures: Dispatcher [employer] EDCT Jorge Alberto Cooley MD MD cha Lewis, Lynsay, RN RN ll1 Joseline Gomez Maurice, MD MD Richelle Sanz 5 Joanne Mejia RN RN ha1 Nicole Rehman RN RN kr3 Corrections: (The following items were deleted from the chart) 12:03 11:59 Reassessment: Patient is alert, oriented x 3, equal unlabored respirations, skin ha1 warm/dry/pink. ha1 12:03 11:59 Pain: Complains of pain in abdomen and left lower quadrant and right lower ha1 quadrant Pain at worst was 7 out of 10 on a pain scale. Quality of pain is described as aching, crampy, Pain began 0400 ha1 18:08 14:50 Reassessment: Patient and/or family updated on plan of care and expected ha1 duration. Pain level reassessed. Patient is alert, oriented x 3, equal unlabored respirations, skin warm/dry/pink. Patient states feeling better. Patient states symptoms have improved. stated " I am feeling better without the tube". kr3
--- NOTE | 2021-11-13 08:53 | EDPHYS ---
Physician Documentation [facility] Name: Angela Rodriguez Age: 51 yrs Sex: Female : 1970 Arrival Date: 11/13/2021 Time: 06:24 Bed 6 Private MD: MIRZA Physician Jorge Alberto Cooley HPI: 11/13 08:45 This 51 yrs old Female presents to ER via Wheelchair with complaints of no Abdominal Pain, Vomiting. 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: 06:35 LMP N/A - Hysterectomy tw Historical: - Allergies: 06:35 Ciprofloxacin; tw 06:35 Phenergan; tw5 - Home Meds: 07:28 buspirone 10 mg Oral tab 1 tab 3 times per day [Active]; cholecalciferol (vitamin D3) tw5 50 mcg (2,000 unit) Oral cap daily [Active]; Cholestyramine Light 4 gram Oral powd 1 scoop daily [Active]; clonazepam 1 mg Oral tab 1 tab 3 times per day [Active]; escitalopram oxalate 10 mg Oral tab 1 tab once daily [Active]; estradiol 1 mg Oral tab 1 tab once daily [Active]; ferrous sulfate 325 mg (65 mg iron) Oral TbEC 325 mg twice a day [Active]; fluconazole 150 mg Oral tab 1 tab [Active]; gabapentin 300 mg Oral Tb24 1 tab once daily [Active]; montelukast 10 mg Oral tab 1 tab once daily [Active]; pantoprazole 40 mg Oral grps 1 packet 2 times per day [Active]; phenazopyridine 200 mg Oral tab 1 tab 3 times per day [Active]; - PMHx: 06:35 adrenal insufficiency; avascular necrosis; Bipolar disorder; Chronic pain; Crohn's; tw5 Endometrosis; Hypothyroidism; - PSHx: 06:35 bowel resection; section; Cholecystectomy; knee; Total abdominal hysterectomy; tw5 wrist; - Immunization history:: Client reports receiving the 2nd dose of the Covid vaccine. - Social history:: Smoking status: Patient denies any tobacco usage or history of. ROS: 08:45 Constitutional: Negative for fever, chills, and weight loss, Eyes: Negative for injury, no pain, redness, and discharge, ENT: Negative for injury, pain, and discharge, Neck: Negative for injury, pain, and swelling, Cardiovascular: Negative for chest pain, palpitations, and edema, Respiratory: Negative for shortness of breath, cough, wheezing, and pleuritic chest pain, Back: Negative for injury and pain, : Negative for injury, bleeding, discharge, and swelling, MS/Extremity: Negative for injury and deformity, Skin: Negative for injury, rash, and discoloration, Neuro: Negative for headache, weakness, numbness, tingling, and seizure, Psych: Negative for depression, anxiety, suicide ideation, homicidal ideation, and hallucinations, Allergy/Immunology: Negative for hives, rash, and allergies, Endocrine: Negative for neck swelling, polydipsia, polyuria, polyphagia, and marked weight changes, Hematologic/Lymphatic: Negative for swollen nodes, abnormal bleeding, and unusual bruising. 08:45 Abdomen/GI: Positive for abdominal pain, nausea and vomiting, abdominal cramps, abdominal distension, of the right upper quadrant, left upper quadrant, right lower quadrant and left lower quadrant. Exam: 08:45 Constitutional: This is a well developed, well nourished patient who is awake, alert, no and in no acute distress. Head/Face: Normocephalic, atraumatic. Eyes: Pupils equal round and reactive to light, extra-ocular motions intact. Lids and lashes normal. Conjunctiva and sclera are non-icteric and not injected. Cornea within normal limits. Periorbital areas with no swelling, redness, or edema. ENT: Nares patent. No nasal discharge, no septal abnormalities noted. Tympanic membranes are normal and external auditory canals are clear. Oropharynx with no redness, swelling, or masses, exudates, or evidence of obstruction, uvula midline. Mucous membranes moist. Neck: Trachea midline, no thyromegaly or masses palpated, and no cervical lymphadenopathy. Supple, full range of motion without nuchal rigidity, or vertebral point tenderness. No Meningismus. Chest/axilla: Normal chest wall appearance and motion. Nontender with no deformity. No lesions are appreciated. Cardiovascular: Regular rate and rhythm with a normal S1 and S2. No gallops, murmurs, or rubs. Normal PMI, no JVD. No pulse deficits. Respiratory: Lungs have equal breath sounds bilaterally, clear to auscultation and percussion. No rales, rhonchi or wheezes noted. No increased work of breathing, no retractions or nasal flaring. Back: No spinal tenderness. No costovertebral tenderness. Full range of motion. Skin: Warm, dry with normal turgor. Normal color with no rashes, no lesions, and no evidence of cellulitis. MS/ Extremity: Pulses equal, no cyanosis. Neurovascular intact. Full, normal range of motion. Neuro: Awake and alert, GCS 15, oriented to person, place, time, and situation. Cranial nerves II-XII grossly intact. Motor strength 5/5 in all extremities. Sensory grossly intact. Cerebellar exam normal. Normal gait. Psych: Awake, alert, with orientation to person, place and time. Behavior, mood, and affect are within normal limits. 08:45 ECG was reviewed by the Attending Physician. 08:45 Abdomen/GI: Inspection: distension, Bowel sounds: active, Palpation: moderate abdominal tenderness, in all quadrants, Liver: no appreciated palpable abnormalities, Hernia: not appreciated. Vital Signs: 06:34 BP 114 / 93; Pulse 83; Resp 18; Temp 97.8(TE); Pulse Ox 97% on R/A; Weight 72.57 kg tw5 (R); Height 5 ft. 2 in. (157.48 cm) (R); Pain 10/10; 07:30 BP 125 / 86; Pulse 81; Resp 15; ha1 08:17 BP 116 / 82 RA Supine; Pulse 78; Resp 16 S; Pulse Ox 99% on 2 lpm NC; Pain 6/10; ha1 08:41 BP 116 / 82 RA Supine; Pulse 77; Resp 16 S; Pulse Ox 100% on 2 lpm NC; Pain 3/10; ha1 10:05 BP 129 / 92 RA Supine; Pulse 91; Resp 15 S; Pulse Ox 96% on 2 lpm NC; Pain 3/10; ha1 11:26 BP 126 / 88 RA Supine; Pulse 91; Resp 16 S; Pulse Ox 95% on 2 lpm NC; Pain 7/10; ha1 13:16 BP 137 / 96 RA Supine; Pulse 100; Resp 16 S; Pulse Ox 99% on 2 lpm NC; ha1 14:30 BP 108 / 80; Pulse 102; Resp 16 S; Pulse Ox 95% on 2 lpm NC; kr3 15:30 BP 100 / 73 RA Supine; Pulse 92; Resp 14 S; Pulse Ox 100% on 2 lpm NC; kr3 16:30 BP 100 / 64 RA Supine; Pulse 83; Resp 14 S; Pulse Ox 97% on 2 lpm NC; Pain 3/10; kr3 17:00 BP 106 / 74 LA Supine; Pulse 88; Resp 15 S; Pulse Ox 97% on 2 lpm NC; Pain 3/10; kr3 17:30 BP 121 / 87; Pulse 86; Resp 14; Pulse Ox 100% on 2 lpm NC; Pain 6/10; ha1 06:34 Body Mass Index 29.26 (72.57 kg, 157.48 cm) tw5 MDM: 07:19 Patient medically screened. [facility] 08:47 Differential diagnosis: Nonspecific abd pain, gastritis, cholecystitis, pancreatitis, no appendicitis, diverticulitis, viral gastroenteritis, gastroenteritis. Data reviewed: vital signs, nurses notes, lab test result(s), EKG, radiologic studies, CT scan, plain films. Data interpreted: clinical research monitor: rate is 77 beats/min, rhythm is regular, Pulse oximetry: on room air. Test interpretation: by ED physician or midlevel provider: ECG, plain radiologic studies. Counseling: I had a detailed discussion with the patient and/or guardian regarding: the historical points, exam findings, and any diagnostic results supporting the discharge/admit diagnosis, lab results, radiology results, the need for further work-up and treatment in the hospital. 11/13 06:47 Order name: CBC with Diff; Complete Time: 07:26 [facility] 11/13 06:47 Order name: CMP; Complete Time: 07:26 [facility] 11/13 06:47 Order name: Lipase; Complete Time: 07:26 [facility] 11/13 07:28 Order name: Troponin High Sensitivity; Complete Time: 08:43 [facility] 11/13 08:41 Order name: Urine Dipstick-Ancillary; Complete Time: 08:43 [facility] 11/13 09:05 Order name: Urine --Ancillary (enter results) eb 11/13 09:35 Order name: COVID-19 SARS RT PCR (Document "Date of Onset" if Symptomatic) ph 11/13 13:17 Order name: CBC with Automated Diff [facility] 11/13 13:17 Order name: CBC with Automated Diff [facility] 11/13 13:17 Order name: Comprehensive Metabolic Panel [facility] 11/13 13:17 Order name: Comprehensive Metabolic Panel [facility] 11/13 13:17 Order name: Magnesium [facility] 11/13 13:17 Order name: Magnesium [facility] 11/13 13:17 Order name: Phosphorus [facility] 11/13 07:28 Order name: CT Abd/Pelvis - IV Contrast Only [facility] 11/13 07:32 Order name: Abdomen ; Complete Time: 08:43 [facility] 11/13 09:25 Order name: Abdomen 1 View (KUB) [facility] 11/13 13:17 Order name: Phosphorus [facility] 11/13 13:17 Order name: Abdomen Acute Series [facility] 11/13 13:17 Order name: Abdomen Acute Series [facility] 11/13 06:47 Order name: IV Saline Lock; Complete Time: 06:56 [facility] 11/13 06:47 Order name: Labs collected and sent; Complete Time: 06:56 [facility] 11/13 06:47 Order name: Urine Dipstick-Ancillary (obtain specimen); Complete Time: 08:42 [facility] 11/13 06:47 Order name: Urine Test (obtain specimen); Complete Time: 08:42 [facility] 11/13 07:28 Order name: EKG; Complete Time: 07:29 [facility] 11/13 07:28 Order name: EKG - Nurse/Tech; Complete Time: 07:51 [facility] 11/13 08:53 Order name: Nasogastric Tube; Complete Time: 09:37 [facility] 11/13 13:17 Order name: CONS Physician Consult [facility] 11/13 13:17 Order name: Clear Liquid [facility] EC:45 Rate is 78 beats/min. Rhythm is regular. QRS [place] is Normal. [place] interval is normal. QRS no interval is normal. QT interval is normal. No Q waves. T waves are Normal. No ST changes noted. Clinical impression: NSR w/ Non-specific ST/T Changes and No evidence of ischemia. Interpreted by me. Reviewed by me. Administered Medications: 07:34 Drug: morphine 4 mg {Note: pain 10/10 rass 0.} Route: IVP; Infused Over: 4 mins; Site: ha1 left forearm; 08:32 Follow up: Response: No adverse reaction; Pain is decreased; RASS: Alert and Calm (0) ha1 07:35 Drug: Pepcid (famotidine) 20 mg Route: IVP; Site: right forearm; ha1 08:34 Follow up: Response: No adverse reaction ha1 07:35 Drug: Zofran (Ondansetron) 4 mg Route: IVP; Site: right forearm; ha1 08:35 Follow up: Response: No adverse reaction ha1 07:36 Drug: NS 0.9% 1000 ml Route: IV; Rate: 1 bolus; Site: left forearm; ha1 09:36 Follow up: Response: No adverse reaction; IV Status: Completed infusion; IV Intake: ll1 1000ml 08:24 Drug: Solu-CORTEF (hyrdoCORTISONE) 100 mg Route: IVP; Site: left forearm; ha1 13:40 Follow up: Response: No adverse reaction kr3 08:25 Drug: Valium (diazepam) 2 mg Route: IVP; Site: left forearm; ll1 13:42 Follow up: Response: No adverse reaction; RASS: Alert and Calm (0) kr3 09:30 Drug: morphine 4 mg {Note: pain at 6 of 10 rass 0.} Route: IVP; Infused Over: 4 mins; 1 Site: left forearm; 10:22 Follow up: Response: No adverse reaction; Pain is decreased; RASS: Alert and Calm (0) ha1 09:35 Drug: NS 0.9% 1000 ml Route: IV; Rate: 1 bolus; Site: left forearm; ll1 10:35 Follow up: Response: No adverse reaction; IV Status: Completed infusion; IV Intake: ll1 1000ml 11:00 Drug: Lactated Ringers Solution 1000 ml Route: IV; Rate: 125 ml/hr; Site: left forearm; ll1 18:00 Follow up: Response: No adverse reaction; IV Status: Completed infusion; IV Intake: ha1 750ml 11:45 Drug: Zofran (Ondansetron) 4 mg Route: IVP; Site: left forearm; ha1 13:41 Follow up: Response: No adverse reaction kr3 11:46 Drug: Dilaudid (HYDROmorphone) 1 mg {Note: pain at 7 out of 10. rass 0.} Route: IVP; ha1 Site: left forearm; 13:41 Follow up: Response: No adverse reaction; Pain is decreased; RASS: Alert and Calm (0) kr3 13:08 Drug: Lidocaine Gel 2 % 1 application Route: Mucous Membrane; ha1 13:15 Follow up: Response: No adverse reaction; Pain is decreased; RASS: Alert and Calm (0) ha1 Disposition Summary: 11/13/21 08:51 Hospitalization Ordered Hospitalization Status: Inpatient Admission no Location: Telemetry/MedSurg (Inpatient) no Condition: Fair no Problem: new no Symptoms: have improved no Bed/Room Type: Standard no Provider: Rosendo Mcdonough(11/13/21 11:59) no Room Assignment: 202(11/13/21 16:39) Diagnosis - Abdominal pain, Generalized no - Other intestinal obstruction - Small Bowel Obstruction no - Crohn's disease, unspecified, without complications - history of no Discharge Instructions: - Discharge Summary Sheet tw5 Forms: - Medication Reconciliation Form no - SBAR form tw5 Signatures: Dispatcher [employer] EDMS Karissa Esquivel RN RN dw Anderson, Corey, MD MD cha Lewis, Lynsay, RN RN ll1 Parveen Gracia MD MD Richelle Sanz tw5 Joanne Mejia RN RN ha1 Nicole Rehman RN kr3 Corrections: (The following items were deleted from the chart) 09:22 08:54 Abdomen 1 View (KUB)+RAD.RAD.BRZ ordered. EDMS EDMS 11:59 08:51 SofiaYair no [facility] 16:39 08:51 no dw
[2021-11-13] MEDS ORDERED: Ringers Lactate 1,000 ML IV ONE (09:02)
--- NOTE | 2021-11-13 09:39 | RAD REPORT ---
EXAM DESCRIPTION: RAD - Abdomen 1 View (KUB) - 11/13/2021 9:31 am CLINICAL HISTORY: SBO COMPARISON: Abdomen 1 View (KUB) dated 10/08/2021; Abdomen Pelvis W Contrast dated 11/13/2021 FINDINGS: Contrast is present in the system from earlier contrast-enhanced CT imaging. Air and st ool are present in nondilated colon. Multiple dilated air-filled small bowel loops are present. [facility] er CT study showed transition point at these small bowel- colon anastomosis. No free air or pneumatosis. Stomach is decompressed. No suspicious calcifications. No significant bony findings IMPRESSION: Small bowel obstruction pattern with no free air or pneumatosis.
[2021-11-13] MEDS ORDERED: HYDROMORPHONE HCL 1 MG/ML INJ ONE (11:42)
[2021-11-13] MEDS ORDERED: LIDOCAINE VISCOUS 2% SOLN 15 ML UDC ONE ×2 (13:02→13:05)
[2021-11-13] MEDS ORDERED: HYDROCODONE/APAP 7.5/325 MG TAB PO PRN (13:11)
[2021-11-13] MEDS ORDERED: ONDANSETRON 4 MG/2 ML VIAL IV PRN (13:11)
[2021-11-13] MEDS ORDERED: ACETAMINOPHEN 500 MG TAB PO PRN (13:11)
--- NOTE | 2021-11-13 13:19 | P.HP ---
Certification for Inpatient Patient admitted to: Observation With expected LOS: <2 Midnights Patient will require the following post-hospital care: None Practitioner: I am a practitioner with admitting privileges, knowledge of patient current condition, hospital course, and medical plan of care. Services: Services provided to patient in accordance with Admission requirements found in Title 42 Section 412.3 of the Code of Federal Regulations Patient History Date of Service: 11/13/21 Reason for admission: Crohn's Disease/small bowel obstruction History of Present Illness: Patient is a 51-year-old female who came to the hospital with intractable nausea and vomiting and abdominal pain. Patient has a history of Crohn's disease. She has been taking her Crohn's medications. She follows up with gastroenterology in [place]. She has been having severe abdominal pain and she came to the ER and imaging studies revealed obstruction in the ileum. She was admitted to the hospital for small bowel obstruction. Allergies promethazine [From Phenergan] Allergy (Verified 11/22/17 20:55) Twitching ciprofloxacin Adverse Reaction (Verified 11/22/17 20:55) Itching Home Medications: Escitalopram Oxalate [Lexapro] 10 mg PO DAILY 10/16/18 Pantoprazole [Protonix Tab*] 40 mg PO BID 10/16/18 clonazePAM [Klonopin*] 1 mg PO TID 10/16/18 Baclofen [Lioresal] 20 mg PO QID 10/06/21 Buspirone HCl [Buspar] 10 mg PO QID 10/06/21 Estradiol [Estrace] 1 mg PO DAILY 10/06/21 Fluticasone Furoate [Arnuity Ellipta] 50 mcg JAYJAY DAILY 10/06/21 Gabapentin [Neurontin] 600 mg PO QID PRN 10/06/21 Varenicline Tartrate [Chantix] 1 mg PO BIDWM 10/06/21 Sucralfate [Carafate*] 1 gm PO ACHS 7 Days #28 tab 10/10/21 - Past Medical/Surgical History Diabetic: No -: Crohns -: Endometriosis -: Titanium plate on right wrist a month ago -: PAin pump on RLQ -11/20/17- battery changed -: Hysterectomy - Family History Father Family History: Reviewed- Non-Contributory - Social History Smoking Status: Former smoker Alcohol use: No CD- Drugs: No Caffeine use: Yes Review of Systems 10-point ROS is otherwise unremarkable Physical Examination - Vital Signs Temperature: 98 F Blood Pressure: 140/80 Pulse: 80 Respirations: 18 Pulse Ox (%): 95 - Physical Exam General: Alert, In no apparent distress, Oriented x3 HEENT: Atraumatic, PERRLA, Mucous membr. moist/pink, EOMI, Sclerae nonicteric Neck: Supple, 2+ carotid pulse no bruit, No LAD, Without JVD or thyroid abnormality Respiratory: Clear to auscultation bilaterally, Normal air movement Cardiovascular: Regular rate/rhythm, Normal S1 S2 Gastrointestinal: Absent bowel sounds, Distended, Tenderness Musculoskeletal: No clubbing, No swelling, No tenderness Integumentary: No rashes Neurological: Normal gait, Normal speech, Normal strength at 5/5 x4 extr, Normal tone, Normal affect Lymphatics: No axilla or inguinal lymphadenopathy - Studies Laboratory Data (last 24 hrs) 11/13/21 06:51: Sodium 138, Potassium 4.3, BUN 21 H, Creatinine 0.84, Glucose 110 H, Total Bilirubin 0.4, AST 15, ALT 26, Alkaline Phosphatase 65, Lipase 86 11/13/21 06:51: WBC 9.1, Hgb 13.5, Hct 40.4, Plt Count 327 Assessment & Plan - Problems (Diagnosis) (1) SBO (small bowel obstruction) Current Visit: Yes Status: Acute (2) Bipolar 1 disorder Current Visit: No Status: Acute (3) Chest pain Onset Date: 11/23/17 Current Visit: No Status: Acute Qualifiers: (4) Chronic pain syndrome Current Visit: No Status: Acute (5) Gastric ulcer Onset Date: 11/23/17 Current Visit: No Status: Acute Qualifiers: (6) Crohns disease Onset Date: 11/23/17 Current Visit: No Status: Resolved Qualifiers: - Plan Plan 1. N.p.o. 2. IV fluids 3. Pain control 4. IV steroids 5. IV antibiotic therapy 6. NG tube to low intermittent wall suction 7. GI and DVT prophylaxis Discharge Plan: Home Plan to discharge in: Greater than 2 days - Advance Directives Does patient have a Living Will: No Does patient have a Durable POA for Healthcare: No - Code Status/Comfort Care Code Status Assessed: Yes Code Status: Full Code Critical Care: No Time Spent Managing PTS Care (In Minutes): 45
--- NOTE | 2021-11-13 13:22 | CON ---
Date of Consultation: 11/13/2021 Diagnosis: Small bowel obstruction. History Of Present Illness: This is the case of a 51-year-old female with history of Crohn disease, who developed nausea, vomiting for the last day. She came to the ER, diagnosed with small bowel obst ruction, and a surgical consult was obtained. She is no new to surgical intervention. She has a pre vious right hemicolectomy at least that is how she described it and the CAT scan once again shows сергей t the area associated with the obstruction could be related also to any stricture of the anastomosis. She denies any dysuria, hematuria, hematochezia, melena. Denies any recent traveling out of the [facility]. Denies any family members sick at home. Past Medical History: Adrenal insufficiency, vascular necrosis, bipolar disorder, Crohn disease, bow el obstructions, endometriosis, hypothyroidism. Past Surgical History: Includes bowel resection, total abdominal hysterectomies, cholecystectomies, knee surgery, C-sections. Social History: She does not smoke. She does not drink alcohol. Family History: Noncontributory. Review of Systems: Ten points otherwise unremarkable. See H and P. Physical Examination: General: The patient is awake, alert. HEENT: Pupils are equal and reactive. Anicteric. Neck: Supple. Chest: Clear. Heart: S1, S2. Abdomen: Soft and depressible. Mild distended. Mild tenderness. No rebound tenderness. Rectal: Deferred. Extremities: Good capillary refill. Laboratory Data: Blood work shows a WBC count of 9.1, hemoglobin of 13.5, potassium 4.3, glucose 110 . The CAT scan of abdomen and pelvis interpreted by Dr. Hewitt as this is a small bowel obstruction pattern extending to the small bowel and colon anastomosis in the right lower quadrant. No mass eff ect, probably scarring in that area. Thickening of the wall of gastric antrum was seen in October 06 as per CAT scan. 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 Assessment: It is a 51-year-old patient with bowel obstruction. We are going to give her bowel rest , hydration. It will be nice to have a pile driver operator helper on board to see and make sure that she is up-to-date on her Crohn disease treatment. At this moment, no surgical abdomen. NHI/YEMI Voice ID: [id number] Report ID: [id number]
[2021-11-13] MEDS: CEFTRIAXONE 1,000 MG in NA CHLORIDE 0.9% 50 ML IVPB SCH ×2 (14:00→20:26)
[2021-11-13] MEDS ORDERED: HYDROMORPHONE HCL 0.5 MG/0.5 ML INJ ONE (14:57)
[2021-11-13] MEDS: HYDROMORPHONE HCL 0.5 MG/0.5 ML INJ IV PRN ×2 (14:58→20:26)
[2021-11-13] MEDS ORDERED: HYDROCODONE/APAP 7.5/325 MG TAB ONE (17:43)
[2021-11-13] MEDS: METRONIDAZOLE 500mg IVPB 500 MG/100 ML BAG IV SCH (18:27)
[2021-11-13] MEDS: NA CHLORIDE 0.9% 1,000 ML IV SCH (18:27)
[2021-11-13] MEDS: METHYLPREDNISOLONE 125 MG INJ IV SCH (18:27)
[2021-11-13] MEDS: DIAZEPAM 5 MG TABLET PO PRN (18:43)
[2021-11-13] MEDS ORDERED: CEFTRIAXONE 1000 MG/VIAL ONE (20:28)
[2021-11-13] MEDS ORDERED: NA CHLORIDE 0.9% 50 ML ONE (20:30)
[2021-11-13 21:13] VITALS: O2SAT 91; BMI 29.2
[2021-11-14] MEDS: METRONIDAZOLE 500mg IVPB 500 MG/100 ML BAG IV SCH ×2 (00:10→08:53)
[2021-11-14] MEDS: METHYLPREDNISOLONE 125 MG INJ IV SCH ×3 (00:10→11:32)
[2021-11-14] MEDS: DIAZEPAM 5 MG TABLET PO PRN ×3 (00:10→11:33)
[2021-11-14] MEDS: HYDROMORPHONE HCL 0.5 MG/0.5 ML INJ IV PRN ×3 (01:49→11:31)
[2021-11-14 04:41] LABS: Absolute Lymphocytes (CBC) 0.6 K/uL (0.7-4.9); Hematocrit 36.2 % (36.0-45.0); Lymphocytes % 13.7 % (15.3-44.8); MCV 94.7 fL (80-100); MPV 6.2 fL (7.6-11.3); RBC Red Blood Cell Count 3.82 M/uL (3.86-4.86)
[2021-11-14 05:04] LABS: Bilirubin Total 0.3 mg/dL (0.2-1.0); Magnesium 2.1 mg/dL (1.8-2.4); Phosphorus 2.3 mg/dL (2.5-4.9); Protein, Total 6.3 g/dL (6.4-8.2)
[2021-11-14] MEDS: NA CHLORIDE 0.9% 1,000 ML IV SCH ×2 (05:04)
[2021-11-14] MEDS: POTASS/SODIUM PHOSPHATE 1 PKT POWD.PACK PO SCH ×3 (08:30→09:30)
[2021-11-14] MEDS: CEFTRIAXONE 1,000 MG in NA CHLORIDE 0.9% 50 ML IVPB SCH (08:55)
[2021-11-14] MEDS ORDERED: ENOXAPARIN 40 MG/0.4 ML SQ SCH (09:00)
--- NOTE | 2021-11-14 12:03 | RAD REPORT ---
EXAM DESCRIPTION: RAD - Abdomen Acute Series - 11/14/2021 8:54 am CLINICAL HISTORY: SBO/crohn's Abdominal pain COMPARISON: Abdomen 1 View (KUB) dated 11/13/2021; Abdomen 1 View (KUB) dated 10/08/2021; Chest Single View dated 09/10/2020; Abdomen Acute Series dated 11/25/2018 FINDINGS: Distended small bowel loops are seen in the upper abdomen compatible with small bowel obst ruction. Very little change is seen in the degree small bowel obstruction since yesterday's study. Benitez bdiaphragmatic free air is not seen. IMPRESSION: No significant change has occurred degree of small bowel obstruction since prior study.
[2021-11-14 12:19] VITALS: BP 132/68; TEMP 98
--- NOTE | 2021-11-14 13:48 | PN ---
Date of Progress Note: 11/14/2021 Reason For Followup: Small bowel obstruction, history of Crohn disease. Subjective: The patient is doing better. No nausea. No vomiting. Starting to tolerate clear liqui d diet, passing flatus. Objective: Chest: Clear. Abdomen: Soft and depressible. Extremities: Good capillary refill. Laboratory Data: Blood work reviewed. X-rays reviewed. Plan: Continue same management, medical treatment. No surgical intervention planned for this moment . The patient's abdomen is benign with no guarding or rebound. HM/MODL Voice ID: [id number] Report ID: [id number]
--- NOTE | 2021-11-15 12:46 | EKG ---
Test Date: 2021-11-13 Test Time: 07:43:13 Sports Manager: SADIE MEASUREMENT RESULTS: Intervals: Rate: 78 CA: 150 QRSD: 90 QT: 410 QTc: 467 [place]: P: 53 CA: 150 QRS: 44 T: 40 INTERPRETIVE STATEMENTS: Normal sinus rhythm Anterior infarct, age undetermined Abnormal ECG Compared to ECG 11/06/2018 18:35:28 Myocardial infarct finding now present Electronically Signed On 11-15-21 12:43:37 CDT by Juan Shah
--- NOTE | 2021-11-16 01:20 | P.DS ---
Discharge Date: 11/14/21 Disposition: ROUTINE DISCHARGE Discharge Condition: GOOD Reason for Admission: Crohn's Disease/small bowel obstruction - Problems (1) SBO (small bowel obstruction) Status: Acute (2) Bipolar 1 disorder Status: Acute (3) Chest pain Onset Date: 11/23/17 Status: Acute Qualifiers: (4) Chronic pain syndrome Status: Acute (5) Gastric ulcer Onset Date: 11/23/17 Status: Acute Qualifiers: (6) Crohns disease Onset Date: 11/23/17 Status: Resolved Qualifiers: Brief History of Present Illness: Patient is a 51-year-old female who came to the hospital with intractable nausea and vomiting and abdominal pain. Patient has a history of Crohn's disease. She has been taking her Crohn's medications. She follows up with gastroenterology in [place]. She has been having severe abdominal pain and she came to the ER and imaging studies revealed obstruction in the ileum. She was admitted to the hospital for small bowel obstruction. Hospital Course: Patient is doing well. She is tolerating diet. Patient states that her symptoms are resolved. At this time, she is clinically doing well and she is stable for discharge home. Vital Signs/Physical Exam: Temp Pulse Resp BP Pulse Ox 98.0 F 54 12 132/68 92 11/14/21 12:18 11/14/21 12:18 11/14/21 12:18 11/14/21 12:18 11/14/21 12:18 General: Alert, In no apparent distress, Oriented x3 Laboratory Data at Discharge: WBC 4.7 K/uL (4.3-10.9) D 11/14/21 04:17 Hgb 12.1 g/dL (12.0-15.0) 11/14/21 04:17 Hct 36.2 % (36.0-45.0) 11/14/21 04:17 Plt Count 259 K/uL (152-406) D 11/14/21 04:17 Sodium 142 mmol/L (136-145) 11/14/21 04:17 Potassium 4.0 mmol/L (3.5-5.1) 11/14/21 04:17 BUN 10 mg/dL (7-18) 11/14/21 04:17 Creatinine 0.59 mg/dL (0.55-1.3) 11/14/21 04:17 Glucose 141 mg/dL (74-106) H 11/14/21 04:17 Phosphorus 2.3 mg/dL (2.5-4.9) L 11/14/21 04:17 Magnesium 2.1 mg/dL (1.8-2.4) 11/14/21 04:17 Total Bilirubin 0.3 mg/dL (0.2-1.0) 11/14/21 04:17 AST 10 U/L (15-37) L 11/14/21 04:17 ALT 18 U/L (12-78) 11/14/21 04:17 Alkaline Phosphatase 59 U/L (45-117) 11/14/21 04:17 Lipase 86 U/L (73-393) 11/13/21 06:51 Home Medications: Alfuzosin HCl [Alfuzosin HCl ER] 10 mg PO DAILY 11/13/21 Aspirin 81 mg PO DAILY 11/13/21 Baclofen 20 mg PO QID 11/13/21 Buspirone HCl [Buspar] 10 mg PO QID 11/13/21 Escitalopram Oxalate 10 mg PO DAILY 11/13/21 Estradiol [Estrace] 1 mg PO DAILY 11/13/21 Gabapentin 600 mg PO QID 11/13/21 Ondansetron [Zofran (Odt)*] 4 mg PO Q4HP PRN 11/13/21 Pantoprazole [Protonix Tab*] 40 mg PO BID 11/13/21 clonazePAM [Clonazepam] 1 mg PO TID 11/13/21 Cefdinir [Omnicef] 300 mg PO BID #14 capsule 11/14/21 Diazepam [Valium] 10 mg PO DAILY PRN #14 tablet 11/14/21 Fluconazole [Diflucan] 200 mg PO DAILY #7 tablet 11/14/21 metroNIDAZOLE [Flagyl] 500 mg PO Q8H #20 tablet 11/14/21 New Medications: Fluconazole [Diflucan] 200 mg PO DAILY #7 tablet metroNIDAZOLE [Flagyl] 500 mg PO Q8H #20 tablet Cefdinir [Omnicef] 300 mg PO BID #14 capsule Diazepam [Valium] 10 mg PO DAILY PRN #14 tablet PRN Reason: Anxiety Physician Discharge Instructions: -DC IV and DC home -Follow-up with PCP in 1 to 2 weeks -Follow-up with GI in 1 to 2 weeks -Please call Dr. Mcdonough at [phone] if any questions regarding hospital stay -Please call nursing station at [phone] if any nursing or medication questions -Return to the emergency room if symptoms worsen Diet: Regular Activity: Fall precautions Followup: NONE,NONE [Primary Care Provider] - Time spent managing pt's care (in minutes): 35
--- OUTSIDE RECORDS SUMMARY | 2021-11-18 08:10 | XMS REPORT | Continuity of Care Document ---
:1970 Author Organization [facility] t Address [address] [place] [address] Care Team Providers Name Role Phone SONIA RETANA Primary Care Physician Unavailable NISH Attending Clinician Unavailable DR SHAILESH Attending Clinician Unavailable SUNNY_ESTEFANIA Attending Clinician Unavailable CHEMA DODSON Attending Clinician Unavailable Vivek Attending Clinician Unavailable JAVON Attending Clinician Unavailable JAVON Attending Clinician Unavailable Nadiya BULLOCK Attending Clinician Unavailable MARQUISE DASILVA Attending Clinician Unavailable NISH Attending Clinician Unavailable MACK Attending Clinician Unavailable GABRIELA GAY Attending Clinician Unavailable LILY_ADAM Attending Clinician Unavailable Priti FIELDS Attending Clinician Unavailable Brenda Lei MD Attending Clinician Leidy MOTLEY, A. Attending Clinician Paul Drake NP Attending Clinician MD Brenda LEI Attending Clinician Unavailable Chema Dodson MD Attending Clinician 1.5, Jase Beck Attending Clinician Unavailable CHEMA DODSON Attending Clinician Unavailable Lynne Lopez Attending Clinician Lynne LOPEZ Attending Clinician Unavailable Fabian Attending Clinician Unavailable Guillermina Jerry MA Attending Clinician Unavailable John RADER Attending Clinician Gilson VERA Attending Clinician Unavailable Adryan VERA Attending Clinician Unavailable JOHN Attending Clinician Unavailable Nish MOTLEY Attending Clinician Elle Attending Clinician Unavailable Giacomo Attending Clinician Unavailable ENMANUEL Attending Clinician Unavailable Yessy Attending Clinician Unavailable Jaime MOTLEY Attending Clinician Mitchell Morley MD Attending Clinician Mitchell MORLEY Attending Clinician Unavailable ZANA Attending Clinician Unavailable Glenn Attending Clinician Unavailable uZri Dalal MD Attending Clinician Javon MOTLEY Attending Clinician Nish MOTLEY Attending Clinician Laney Daniels MD Attending Clinician Jocelyn DICKINSON Attending Clinician Unavailable JAVON MANCINI-ALEJANDRO Attending Clinician Unavailable LUZ MARIAMED, - Attending Clinician Unavailable TRUONGI Attending Clinician Unavailable NISH Admitting Clinician Unavailable DR SHAILESH Admitting Clinician Unavailable MILADY Admitting Clinician Unavailable Vivek Admitting Clinician Unavailable JAVON Admitting Clinician Unavailable LISET CISSE Admitting Clinician Unavailable MACARIO Admitting Clinician Unavailable DO Admitting Clinician Unavailable DIOR BECERRA Admitting Clinician Unavailable Elle Admitting Clinician Unavailable Giacomo Admitting Clinician Unavailable Yessy Admitting Clinician Unavailable Glenn Admitting Clinician Unavailable GABRIELA GAY Admitting Clinician Unavailable Laney GARCIA Admitting Clinician Unavailable MARY MANCINI Admitting Clinician Unavailable AHMED, - Admitting Clinician Unavailable OEI Admitting Clinician Unavailable Payers Payer Name Policy Type Policy Number Effective Date Expiration Date S millie HUMANA MEDICARE [id number] 2019-03-17 ADV 00:00:00 MEDICAID [facility]INT [facility] [id number] 2017-05-01 2017-06-28 00:00:00 00:00:00 MEDICARE A B [id number] 2005-06-01 2018-04-30 00:00:00 00:00:00 MEDICAID DIAZ [id number] 2017-06-29 00:00:00 [facility] [id number] 2021-05-01 - DUAL ELIGIBLE 00:00:00 (MEDICARE REPLACEMENT/ADVANT AGE - PPO) [facility] [id number] 2016-11-29 [facility] (MEDICAID 00:00:00 HMO) [place]: [id number] 2005-06-01 Melty 00:00:00 - [facility] [id number] 2021-05-01 (MEDICARE 00:00:00 REPLACEMENT/ADVANT AGE - PPO) WELLMED DUAL [id number] COMPLETE SNP PPO-[facility]-MEDICAID - [id number] MEDICAID HMO - HUMANA [id number] 2019-03-17 2019-06-13 HEALTHCARE 00:00:00 00:00:00 MEDICARE PART A [id number] \\T\\ B - MEDICARE ZZZ-STAR PLUS [id number] 2011-07-23 00:00:00 STAR PLUS - DIAZ [id number] 2018-05-01 2018-05-01 00:00:00 00:00:00 WELLMED MEDICARE [id number] 2021-05-01 00:00:00 MANAGED MEDICAID [id number] 2021-07-06 -GENERIC 00:00:00 GENERIC MEDICAID [id number] 2021-05-01 HMO 00:00:00 [facility] [id number] 2020-06-29 SELECT CHOICE 00:00:00 [facility] [id number] 2020-05-01 COMMUNITY PLAN [place] 00:00:00 (MEDICAID H[place]) [place] [id number] [place] [facility] - [id number] FQ (INSTITUTIONAL) [facility] [id number] HUMANA (MEDICARE [id number] REPLACEMENT/ADVANT AGE - PPO) HUMANA (PPO) [id number] MEDIC[place] B-[place]: [id number] 2005-06-01 NOVPopSeal 00:00:00 [facility] [id number] 2017-06-29 [facility] 00:00:00 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 [id number] 2019-05-01 00:00:00 MEDICAID [facility] [id number] 2017-11-20 00:00:00 Problems Condition Condition Condition Status Onset [...] Medical 00 Group Chronic Chronic Disease Active [facility] cystitis cystitis 9-22 Colleg e without without 00:00: of hematuria hematuria 00 Medi marlene e Crohn's Crohn's Disease Active [facility] disease, disease, 9-13 Colleg e unspecifie unspecifie 00:00: of d, without d, without 00 Me dicin complicati complicati e ons ons (HCCode) (HCCode) Acute Acute Problem Active [place] urinary Urinary 8-02 da tract Tract 00:00: Medical infection Infection 00 Grou p [id number], Diagnosis Active 2020-08-04 Mem oria M25.561, 3-15 16:47:[place] [address], 00:00: Markus RIGHT KNEE M25.561, 00 PAIN IN RIGHT KNEE Active 07/13/2020 [facility] M17.12 - Diagnosis Active 2020-05-11 M emoria UNILATERAL 1-04 10:01:00 l PRIMARY M17.12 - 00:00: Prachi nn OSTEOARTHR UNILATERAL 00 IT PRIMARY OSTEOARTHR IT Active [facility] Avascular Avascular Problem Active 2019-05 [facility] [place] necrosis Necrosis 0-13 da of bone of Bone 00:00: Medical 00 Group Lack or Lack or Problem Active [place] loss of Loss of 9-18 da sexual Sexual 00:00: Medical desire Desire 00 Group Dyspareuni Dyspareuni Problem Active M [facility] a a 9-18 da 00:00: Medical 00 Group Menopausal Menopausal Problem Active M [facility] syndrome Syndrome 918 da 00:00: Medical 00 Group Localized Localized Disease Active [facility] osteoporos osteoporos 6-08 st is without is without 00:00: Ho spita current current 00 l pathologic pathologic al al fracture fracture Ventral Ventral Disease Active [facility] incisional incisional 3-12 Co llege hernia [...] Postsurgic Problem Active M [place] al al 9- da menopause Menopause 00:00: Medi payam 00 Group Acute Acute Problem Active [place] cystitis Cystitis 8-30 da 00:00: Medical 00 Group Urinary Urinary Problem Active [place] tract Tract 8-19 da infectious Infectious 00:00: Me dical disease Disease 00 Group Persistent Persistent Problem Active M [facility] insomnia Insomnia 8 da 00:00: Medical 00 Group [place]'s [place]'s Problem Active [facility] disease Disease 7 da 00:00: Medical 00 Group Abdominal Abdominal Disease Active [facility] Skin tag [facility] Group Crohn's Crohn's Disease Active [facility] disease of disease of 09-03 Co [...] 00 Medicin e Small Small Disease Active [facility] bowel bowel 09-03 [place] obstructio obstructio 00:00: of n (HCCode) n (HCCode) 00 Me dicin e History of History of Disease Active [facility] Clostridiu Clostridiu 09-03 Co llege m m 00:00: of difficile difficile 00 Medi marlene infection infection e Chronic Chronic Disease Active [facility] abdominal abdominal 09-03 [facility] pain pain 00:00: of 00 Medicin e Macrocytic Macrocytic Disease Active [facility] anemia anemia 09-03 College 00:00: of 00 Medicin e Osteopenia Osteopenia Disease Active [facility] 06 College 00:00: of 00 Medicin e Heavy Heavy Disease Active [facility] smoker smoker 06 College 00:00: of [...] 00 Active 11/23/2017 Finding 10/16/[address] [facility] Chest pain Finding Active 2018-10-16 emoria 11-23 21:53:21 l Chest 00:00: [place] pain 00 Active 11/23/2017 Finding 10/16/[address] [facility] Anxiety Anxiety Problem Active [place] disorder Disorder 625 da 00:00: [facility] l Clostridiu Problem Active 2020-08-10 M emoria 6-12 06:24:10 l difficile 00:00: [place] (organism) Clostridiu 00 m difficile (organism) Active 10/10/2016 Problem 08/10/2020 Stool 10/10/2016 Problem added by Discern Expert. [facility] [place] ABDOMINAL Diagnosis Active 2016-10-18 Memoria PAIN 6-11 07:22:00 l 00:00: [place] ABDOMINAL 00 PAIN Active 10/09/2016 [facility] [place] INSECT Diagnosis Active 2015-052016-02-10 Mem oria BITE 0-08 16:26:00 l INSECT 08:00: [place] BITE 00 Active 02/06/2016 [facility] VOMITING Diagnosis Active 2014-08-13 M emoria 15 08:22:00 l VOMITING 00:00: Sony n 00 Active 08/13/2014 [facility] DIARRHEA Diagnosis Active 2014-01-14 M emoria 9-16 08:28:00 l DIARRHEA 05:00: Sony n 00 Active 01/14/2014 [place] HEAT Diagnosis Active 2013-12-10 Mem oria EXPOSURE - 08:48:00 l HEAT 00:00: [place] EXPOSURE 00 Active 11/22/2013 [place] ANXIETY Condition Active 2013-11-27 Me moria DEPRESSION 4-07 06:16:00 l ANXIETY 00:00: [place] DEPRESSION 00 Active 08/05/2013 Condition 4 [facility] Group Mixed Problem Active 2020-08-10 Memor ia anxiety 4-07 06:24:10 l and Mixed 00:00: [place] depressive anxiety 00 disorder and (disorder) depressive disorder (disorder) Active 08/05/2013 Problem 08/10/2020 Data migrated from Tamr on 09/27/14. [facility], [facility] [place] HYPOTHYROI Condition Active 2012-052013-11-27 Memoria DISM 0-04 06:16:00 l 00:00: Markus HYPOTHYROI 00 DISM Active 02/01/2013 Condition [facility] CROHN'S Condition Active 2012-052013-11-27 Me moria DISEASE 0-04 06:16:00 l CROHN'S 00:00: [place] DISEASE 00 Active 02/01/2013 [facility] ENDOMETRIO Condition Active 2012-052013-11-27 Memoria SIS 0-04 06:16:00 l 00:00: [place] ENDOMETRIO 00 SIS Active 02/01/2013 Condition [facility] HERPES Condition Active 2012-052013-11-27 Mem oria SIMPLEX 0-04 06:16:00 l INFECTION HERPES 00:00: Prachi nn SIMPLEX 00 INFECTION Active 02/01/2013 Condition [facility] LONG-TERM Condition Active 2012-052013-11-27 Memoria (CURRENT) 0-04 06:16:00 l USE OF 00:00: [place] OTHER LONG-TERM 00 MEDICATION (CURRENT) S USE OF OTHER MEDICATION S Active 02/01/2013 Condition [facility] Long-term Problem Active 2012-052020-08-10 Me moria drug 0-04 06:24:10 l therapy 00:00: Markus (procedure Long-term 00 ) drug therapy (procedure ) Active 02/01/2013 Problem 08/10/2020 Data migrated from Tamr on 09/27/14. [facility], [facility] [place] FH LUNG Condition Active 2013-11-27 Me moria [...] Active 2019-07-03 Memoria hernia, 18:25:58 l without Markus obstructio Incisional n or hernia, gangrene without obstructio n or gangrene Active 0 [facility] Smoking Diagnosis Active 2019-07-11 Me moria trying to 18:27:32 l quit Smoking Markus trying to quit Active 0 [facility] Chronic Diagnosis Active 2019-12-20 Me moria pain of 21:16:37 l both knees Chronic Her hogan pain of both knees Active 12/20/2019 [facility] Knee Diagnosis Active 2019-12-20 Mem oria osteonecro 21:16:37 l sis Knee [place] (HCCode) osteonecro sis (HCCode) Active 0 [facility] Effusion, Diagnosis Active 2019-11-07 Memoria left knee 14:38:40 l Markus Effusion, left knee Active 0 [facility] Hypothyroi Problem Resolve 2020-08-10 Memoria dism d 06:24:10 l (disorder) Sony n Hypothyroi dism (disorder) Resolved Problem 08/10/2020 [facility], [facility], [facility] [place] Abdominal Problem Resolve 2016-02-13 M emoria structure d 03:41:05 l (body [place] structure) Abdominal structure (body structure) Resolved Problem 02/13/2016 [facility], [facility], [place] Colitis Problem Active 2020-08-10 Isreal adiel (disorder) 06:24:10 l Colitis Markus (disorder) Active Problem 08/10/2020 [facility], [facility], [facility] [place] Osteoarthr Problem Active 2020-08-10 M emoria itis 06:24:10 l (disorder) Sony n Osteoarthr itis (disorder) Active Problem 08/10/2020 [facility] Pain Problem Active 2020-08-10 Memor ia (finding) 06:24:10 l Pain [place] (finding) Active Problem 08/10/2020 [facility], [facility], [facility] [place] Panic Panic Problem Active [place] disorder Disorder da without without [facility] Generalize Generalize Problem Active M [facility] d anxiety d Anxiety da disorder Disorder [facility] Crohn's Diagnosis Active 2017-2018-10-16 2019-06-19 Memoria disease 7-26 21:53:21 17:27:41 l with Crohn's 00:00: [place] complicati disease 00 on, with unspecifie complicati d on, gastrointe unspecifie stinal d tract gastrointe location stinal (HCCode) tract location (HCCode) Active 0 [employer] History of Past Illness Condition Condition Condition Status Onset Resolution Last Treating Co mments Source Name Details Category Date Date Treatment Clinician Date Unspecifie Problem 2016-052017-02-21 2017-02-21 Memoria d 0-21 01:25:53 01:25:53 l abdominal 05:00: [place] pain Unspecifie 00 d abdominal pain 02/18/2017 02/21/2017 [place] Discharge Problem 2015-052016-02-13 2016-02-13 Memoria Diagnosis: 0-12 03:41:05 03:41:05 l Erythema 05:00: [place] nodosum Discharge 00 Diagnosis: Erythema nodosum 02/10/2016 02/13/2016 [facility] Discharge Problem 2014-08-16 2014-08-16 Memoria Diagnosis: 08-13 08:06:50 08:06:50 l Diarrhea 05:00: [place] Discharge 00 Diagnosis: Diarrhea 5 08/16/2014 [facility] Discharge Problem 2014-08-16 2014-08-16 Memoria Diagnosis: 08-13 08:06:50 08:06:50 l Hypokalemi 05:00: Sony n a Discharge 00 Diagnosis: Hypokalemi a 08/13/2014 08/16/2014 [facility] Discharge Problem 2013-052014-03-11 2014-03-11 Memoria Diagnosis: 05-09 21:37:50 21:37:50 l Abdominal 06:00: [place] pain Discharge 00 Diagnosis: Abdominal pain 03/09/2014 03/11/2014 [facility] [place] Discharge Problem 2013-052014-03-11 2014-03-11 Memoria Diagnosis: 05-09 21:37:50 21:37:50 l UTI 06:00: [place] (urinary Discharge 00 tract Diagnosis: infection) UTI (urinary tract infection) 03/09/2014 03/11/2014 [facility] Discharge Problem 2013-052014-03-11 2014-03-11 Memoria Diagnosis: 05-09 21:37:50 21:37:50 l Vomiting 06:00: [place] Discharge 00 Diagnosis: Vomiting 4 03/11/2014 [facility] Discharge Problem 2014-01-17 2014-01-17 Memoria Diagnosis: 01-14 04:54:49 04:54:49 l UTI (lower 05:00: Sony n urinary Discharge 00 tract Diagnosis: infection) UTI (lower urinary tract infection) 01/14/2014 01/17/2014 [facility] [place] Allergies, Adverse Reactions, Alerts Allergy Allergy Status Severity Reaction(s) Onset Inactive Treating Comm ents Source Name Type Date Date Clinician Morphine Propensi Active Other (See Pt states Methodi ty to Comments) [address] adverse 00:00: doesn't Hospita reaction 00 work per l s to pt drug MORPHINE Allergy Active Low Other [facility] 08-17 00:00: 00 Morphine Drug Active Other (See Patient [facility] Allergy Comments) 08-17 said does Mirtha es 00:00: not work Medical 00 for her. Center Morphine Allergy Active [place] to 08-17 da substanc 00:00: Medical e 00 Group Morphine Propensi Active Mild Other [facility] ty to 08-17 reaction( College adverse 00:00: s): Other of reaction 00 (See Medicin s to Comments) e drug Patient said does not work for her. PROMETHA Allergy Active Med Other [facility] ZINE 3 00:00: 00 Prometha Drug Active Other (See Makes [facility] zine Allergy Comments) 07-06 mouth/jaw Mirtha es 00:00: twitch/je Medical 00 rk Center Remeron Allergy Active Other [place] to 7-30 da substanc 00:00: [facility] ciproflo ciproflo Active Memori a xacin xacin 7-25 l 00:00: [place] 00 prometha prometha Active Memori a zine zine 7-25 l 00:00: Markus 00 CIPROFLO DRUG Active High Anaphylaxis Uni vers XACIN INGREDI 7-12 ity of 00:00: [place] [facility] PROMETHA DRUG Active High Anaphylaxis Uni vers ZINE HCL INGREDI 7-12 ity of 00:00: [place] [facility] Ciproflo Propensi Active Swelling Meth deepti xacin ty to [address] adverse 00:00: Hospita reaction 00 l [...] Anaphylaxis, 10-24 tongue Mirtha es Hives 00:00: [place] [id number] Center CIPROFLO Allergy Active High Swelling [facility] XACIN 10-24 00:00: 00 Prometha Propensi Active Anaphylaxis, Muscle [facility] zine Hcl ty to Other (See 10-24 twiching Gina ke adverse Comments) 00:00: Medica l reaction 00 Center s PROMETHA Allergy Active High Anaphylaxis SL [facility] ZINE HCL 10-24 00:00: 00 Ciproflo Allergy Active Severe, Anaphylaxis, [place] xacin [...] zine Hcl zine Hcl 10-24 l 00:00: [place] Cipro Allergy Active Anaphylaxis [place] gor to da substanc [facility] Phenerga Allergy Active Anaphylaxis Mejia nye n to da substanc [facility] Trazodon Allergy Active Hives [place] to da substanc [facility] Family History Family Member Diagnosis Comments Start Date Stop Date Source Maternal grandfather Cancer [facility] Maternal grandfather [facility] Maternal grandmother Dementia [facility] Maternal grandmother Endometriosis [facility] Maternal uncle Suicidality [facility] Natural mother Endometriosis [facility] Natural mother Other [facility] Social History Social Habit Start Date Stop Date Quantity Comments Source History SDOH [facility] Alcohol Std Drinks Medica l Center History SDOH [facility] Alcohol Binge Medical [place] [facility] History SDOH [facility] Alcohol Comment Medical C enter History of tobacco Cigarette Smoker [facility] Exposure to Not sure [facility] SARS-CoV-2 (event) Hospit al Alcohol intake 2021-05-25 2021-05-25 Current [facility] 00:00:00 00:00:00 non-drinker of Hospital alcohol (finding) [...] [facility] Alcohol Frequency 00:00:00 00:00:00 [facility] Social History 2014-01-14 2014-01-14 [facility] 03:02:48 03:02:48 Sex Ass[birth year] At [birth year] [facility] longorias 00:00:00 00:00:00 [facility] Smoking Status Start Date Stop Date Source Light Tobacco Smoker [facility] Heavy Tobacco Smoker [facility] Social History 2019-11-07 00:00:00 [facility] Social [facility] Medications Ordered Filled Start Stop Current [...] piggyback Inject by intravenou s route. multivitami 0 Yes 1{tbl} Take 1 Me thodi n,tx-iron-m 1-[address] inerals 16:29: mouth. Hospita tablet 47 l baclofen 0 Yes 20mg Q.[id number] Take 20 mg [facility] (LIORESAL) 1-10 [id number] mouth [address] 20 MG 16:29: 3D (three) Hospita tablet 47 times a l day. gabapentin 0 Yes 600mg Q.[id number] Take 600 [facility] (NEURONTIN) 1-10 [id number] mg by s t 600 mg 16:29: 3D mouth 3 Hospita tablet 47 (three) l times a day. estradioL 0 Yes 1mg QD Take 1 mg Met hodi (ESTRACE) 1 1-[address] MG tablet 16:29: daily. Hospit a 47 l clonAZEPAM 0 Yes 1mg Take 1 mg Me thodi (KlonoPIN) 1-[address] 1 MG tablet 16:29: Hospit a 47 l zoledronic 0 Yes Reclast 5 Me thodi acid 1-10 mg/[address] (RECLAST) 5 16:29: intravenou Hospita mg/100 mL 47 s l piggyback piggyback Inject by intravenou s route. multivitami 0 Yes 1{tbl} Take 1 Me thodi n,tx-iron-m 1-[address] inerals 16:29: mouth. Hospita tablet 47 l baclofen 2021-0 Yes 20mg Q.[id number] Take 20 mg [facility] (LIORESAL) 1-10 [id number] by mouth [address] 20 MG 16:29: 3D (three) Hospita tablet 47 times a l day. gabapentin 2022-0 Yes 600mg Q.[id number] Take 600 [facility] (NEURONTIN) 1-10 [id number] mg by s t 600 mg 16:29: [...] tablet 47 l baclofen 2021-0 Yes 20mg Q.[id number] Take 20 mg [facility] (LIORESAL) 1-10 [id number] by mouth [address] 20 MG 16:29: 3D (three) Hospita tablet 47 times a l day. gabapentin 2022-0 Yes 600mg Q.[id number] Take 600 [facility] (NEURONTIN) 1-10 [id number] mg by s t 600 mg 16:29: [...] piggyback Inject by intravenou s route. multivitami 2022-0 Yes 1{tbl} Take 1 Me thodi n,tx-iron-m 1-[address] inerals 16:29: mouth. Hospita tablet 47 l baclofen Yes 20mg Q.[id number] Take 20 mg [facility] (LIORESAL) 1-10 [id number] mouth [address] 20 MG 16:29: 3D (three) Hospita tablet 47 times a l day. gabapentin Yes 600mg Q.[id number] Take 600 [facility] (NEURONTIN) 1-10 [id number] mg by s t 600 mg 16:29: 3D mouth 3 Hospita tablet 47 (three) l times a day. estradioL Yes 1mg QD Take 1 mg Met hodi (ESTRACE) [address] MG tablet 16:29: daily. [...] tablet ALPRAZolam 2021- No alprazolam [facility] (XANAX) 05-06 [...] No 500mg Q6H Take 500 Methodi ol - 01-[address] (ROBAXIN) 11:18: 00:00 mouth Hospit a 500 MG 28 :00 every 6 l tablet (six) hours. methocarbam 2021- No 500mg Q6H Take 500 Methodi ol -09 29-[address] (ROBAXIN) 11:18: 00:00 mouth Hospit a 500 MG 28 :00 every 6 l tablet (six) hours. methocarbam 0 2021- No 500mg Q6H Take 500 Methodi ol -09 29-[address] (ROBAXIN) 11:18: 00:00 mouth Hospit a 500 MG 28 :00 every 6 l tablet (six) hours. methocarbam 0 2021- No 500mg Q6H Take 500 Methodi ol - 01-[address] (ROBAXIN) 11:18: 00:00 mouth [...] daily. Medicin e estradiol 2020-05 Yes estradiol [place] esthela (ESTRACE) 1 -12 1 mg College MG tablet 09:36: tablet of 32 Medicin e montelukast 2020-05 Yes 10mg Take 10 mg [facility] (SINGULAIR) 1-12 by mouth Ronny ege 10 MG 09:36: daily. of tablet 32 Medicin e phenazopyri 2020-05 Yes 200mg Take 1 [place] esthela dine 1-12 Tablet by [place] (PYRIDIUM) 00:00: mouth 3 of 200 MG 00 times Medicin tablet daily as e needed for Pain. Ustekinumab 2020-05 Yes [id number] INJECT [facility] (STELARA) 1-09 90MG [place] 90 MG/ML 00:00: SUBCUTANEO of injection 00 USLY EVERY Medi marlene 28 DAYS e Sertraline 2020- No Take by [facility] HCl (ZOLOFT 01-19 mouth. Colle ge OR) 15:11: 00:00 of 09 :00 Medicin e Sertraline 2020- No Take by [facility] HCl (ZOLOFT 01-19 mouth. Colle ge OR) 15:11: 00:00 of 09 :00 Medicin e escitalopra 2020- No 20mg Take 20 mg [facility] m (LEXAPRO) 01-19 by mouth Col lege 20 MG 15:10: 00:00 daily. of tablet 33 :00 Medicin e escitalopra 2020- No 20mg Take 20 mg [facility] m (LEXAPRO) 01-19 by mouth Col lege 20 MG 15:10: 00:00 daily. of tablet 33 :00 Medicin e Mesalamine 2020- No 1.2mg Take 1.2 [place] 1.2 g TBEC 01-19 mg by [place] 15:08: 00:00 mouth of 54 :00 daily. Medicin e Mesalamine 2020- No 1.2mg Take 1.2 [place] 1.2 g TBEC 01-19 mg by [place] 15:08: 00:00 mouth of 54 :00 daily. [...] 35 :00 Medicin e raNITIdine 2020- No [facility] HCl (ZANTAC 01-19 College OR) 15:08: 00:00 of 17 :00 Medicin e raNITIdine 2020- No [facility] HCl (ZANTAC 01-19 College OR) 15:08: 00:00 of 17 :00 Medicin e Sulfamethox 2020- No Take by [place] azole-Trime 01-19 mouth. Colle ge thoprim 15:07: 00:00 of (BACTRIM 49 :00 Medicin OR) e Sulfamethox 2020- No Take by Ravi aylor azole-Trime 01-19 mouth. Colle ge thoprim [...] :00 Medicin e cefUROXime 2020- No cefuroxime [facility] (CEFTIN) 01-19 axetil 500 Ronny ege 500 MG 15:06: 00:00 mg tablet of tablet 48 :00 Medicin e cefUROXime 2020- No cefuroxime [facility] (CEFTIN) 01-19 axetil 500 Ronny ege [...] Take 10 mg [facility] (BUSPAR) 10 9-21 by mouth 3 Co llege MG tablet 14:15: times of 26 daily. Medicin e estradiol 0 Yes estradiol [place] [facility]a (ESTRACE) 1 9- 1 mg College MG tablet 14:15: tablet of 26 Medicin e busPIRone 0 Yes 10mg Take 10 mg [facility] (BUSPAR) 10 -21 by mouth 3 Co llege MG tablet 14:15: times of 26 daily. Medicin e montelukast 0 Yes 10mg Take 10 mg K[facility] (SINGULAIR) - by mouth Ronny ege 10 MG 14:15: daily. of tablet 26 Medicin e estradiol 0 Yes estradiol [place] esthela (ESTRACE) 1 9- 1 mg College MG tablet 14:15: tablet of 26 Medicin e montelukast 0 Yes 10mg Take 10 mg [facility] (SINGULAIR) 01-19 by mouth Ronny ege 10 MG 14:15: daily. of tablet 26 Medicin e pantoprazol 0 Yes [id number] TAKE 1 [facility] e 8-05 TABLET BY [place] (PROTONIX) 00:00: MOUTH of 40 MG 00 TWICE Medicin tablet DAILY e pantoprazol 2020-0 Yes [id number] TAKE 1 [facility] e 8-05 TABLET BY [place] (PROTONIX) 00:00: MOUTH of 40 MG 00 TWICE Medicin tablet DAILY e pantoprazol 2020-0 Yes [id number] TAKE 1 [facility] e 8-05 TABLET BY [place] (PROTONIX) 00:00: MOUTH of 40 MG 00 TWICE Medicin tablet DAILY e cholestyram 2020-0 Yes 1{packe Take 1 [facility] ine 6-21 t} Packet by [place] (QUESTRAN) 00:00: mouth of 4 g packet 00 daily. Medicin e cholestyram Yes 1{packe Take 1 [facility] ine 6-21 t} Packet by [place] (QUESTRAN) 00:00: mouth of 4 g packet 00 daily. Medicin e cholestyram 2020- No 1{packe Take 1 [facility] ine 6-21 11-12 t} Packet by [place] (QUESTRAN) 00:00: 00:00 mouth of 4 g packet 00 :00 daily. Medicin e cefadroxil Yes 500 mg = 1 M emoria 500 mg oral 4-06 cap, PO, l capsule 14:00: BID, Markus 00 start medication on 08/04/20 eRx sent to pharmacy [facility][id number] [address] [place] [address] , X 7 day, # 14 cap, 0 Refill(s), called to pharmacy meloxicam Yes 15 mg = 1 Mem oria 15 mg oral 4-06 tab, PO, l tablet 14:00: Daily, Sony n 00 start medication on 08/04/20 eRx sent to pharmacy [facility] #[id number] [address] [place] [address] , # 30 tab, 0 Refill(s), called to pharmacy Aspirin 81 Yes 81 mg = 1 Me moria MG Enteric 4-06 tab, PO, l Coated 02:00: BID, [place] Tablet 00 start medication on 08/03/20 eRx sent to [facility] #[id number] [address] [place] [address] , # 60 tab, 0 Refill(s), called to pharmacy Ustekinumab Yes [id number] INJECT [facility] (STELARA) 4-06 90MG College 90 MG/ML 00:00: SUBCUTANEO of injection 00 USLY EVERY Medi marlene 28 DAYS e Ustekinumab Yes [id number] INJECT K[facility] (STELARA) 4-06 90MG [facility] 90 MG/ML 00:00: SUBCUTANEO of injection 00 USLY EVERY Medi marlene 28 DAYS e Ondansetron Yes 4 mg = 1 Me moria 4 MG 4-05 tab, PO, l Disintegrat 22:00: Q8H, PRN He rmchelsey ing Tablet 00 Nausea & Vomiting, allow tablet to dissolve on tongue start medication on 08/03/20 eRx sent to pharmacy [facility][id number] [address] [place] [address] , # 12 tab, 0 Refill(s), ... ePHEDrine No Route: IV, Me moria (ANES) 4- Drug form: l 12:42: INJ, ONCE, [place] Stop date: 08/03/20 7:42:00 CDT ondansetron No Route: IV, Memoria (ANES) 4 Drug form: l 12:32: INJ, ONCE, Stop date: 08/03/20 7:32:00 CDT dexamethaso No Route: IV, Memoria ne (ANES) 08-03 Drug form: l 12:32: INJ, ONCE, Stop date: 08/03/20 7:32:00 CDT midazolam No Route: IV, Me moria (ANES) 4-05 Drug form: l 12:27: SOLN, [place] 00 ONCE, Stop date: 08/03/20 7:27:00 CDT lidocaine No Route: IV, Me moria (ANES) 4- Drug form: l 12:27: INJ, ONCE, Markus 00 Stop date: 08/03/20 7:27:00 CDT fentaNYL No Route: IV, Mem oria (ANES) 4- Drug form: l 12:27: INJ, ONCE, Markus Stop date: 08/03/20 7:27:00 CDT propofol No Route: IV, Mem oria (ANES) 4-05 Drug form: l 12:27: INJ, ONCE, [place] 00 Stop date: 08/03/20 7:27:00 CDT Sodium No 500 mL, Memoria Chloride 4-05 Infuse l 0.9% 12:10: Over: 20 [place] (Bolus) IV 00 minutes, Route: IV, ONCE, Dosing Weight 77.273 kg, Start date: 08/03/20 7:10:00 CDT, Stop date: 08/03/20 7:10:00 CDT Labetalol 2021-0 No 10 mg, Memori a 4-05 Route: l 12:10: IVP, [place] 00 Q5Min, Dosing Weight 77.273, kg, PRN Elevated BP, Start date: 08/03/20 7:10:00 CDT, Duration: 5 doses or times, Stop date: Limited # of times Metoprolol 1-0 No 1 mg, Memori a 4-05 Route: l 12:10: IVP, [place] 00 Q5Min, Dosing Weight 77.273, kg, PRN Other -See Comment, Start date: 08/03/20 7:10:00 CDT, Duration: 5 doses or times, Stop date: Limited # of times Ketorolac 1-0 No 30 mg, Memori a 08-03 Route: l 12:10: IVP, ONCE, [place] 00 Dosing Weight 77.273, kg, Start date: 08/03/20 7:10:00 CDT, Stop date: 08/03/20 7:10:00 CDT Hydromorpho 1-0 No 0.5 mg, Mem oria ne 08-03 Route: l 12:10: IVP, Markus 00 Q5Min, Dosing Weight 77.273, kg, PRN Pain Score 7-10, Start date: 08/03/20 7:10:00 CDT, Duration: 4 doses or times, Stop date: Limited # of times Flumazenil 1-0 No 0.2 mg, Isreal adiel 4-05 Route: l 12:10: IVP, PRN, Markus 00 Dosing Weight 77.273, kg, PRN Benzodiaze pine Reversal, Initial dose, Start date: 08/03/20 7:10:00 CDT, Duration: 30 day, Stop date: 09/02/20 7:09:00 CDT Naloxone 2021-0 No 0.4 mg, Memori a 4-05 Route: l 12:10: IVP, Markus 00 Q2MIN, [...] 08/03/20 7:43:00 CDT ceFAZolin + No Notes: Isrela adiel sterile 4-04 (Same As: l water 20 mL 04:00: Ancef, Kefzol) MEDICATION WASTE Product Size: 1000 mg [...] medication on 05/12/20 eRx sent to pharmacy [facility] #[id number] [place] [address] [place] [address] , X 7 day, # 14 cap, 0 Refill(s), called to pharmacy meloxicam Yes 15 mg = 1 Mem oria 15 mg oral 1-12 tab, PO, l tablet 15:00: Daily, Sony n 00 start medication on 05/12/20 eRx sent to pharmacy [facility] #[id number] [address] [place] [address] , # 30 tab, 0 Refill(s), called to pharmacy meloxicam No Notes: Memori a 1-12 (Same as: l 15:00: Mobic) Markus 00 Aspirin 81 No Notes: Do Me moria MG Enteric -12 not crush l Coated 14:00: or chew. [place] Tablet 00 (Same As: Ecotrin) Cefazolin No Notes: Memori a 1-12 (Same As: l 09:00: Ancef, Markus Kefzol) MEDICATION WASTE Product Size: 1000 mg Product Wasted: ___ mg Docusate No Notes: Memoria Sodium 100 -12 (Same as: l MG Oral 03:06: Colace) [place] Capsule 00 (Do Not [Colace] Crush) Aspirin 81 Yes 81 mg = 1 Me moria MG Enteric 1-12 tab, PO, l Coated 03:00: BID, Markus Tablet 00 start medication on 05/11/20 eRx sent to pharmacy [facility] #[id number] [address] [place] [address] , # 60 tab, 0 Refill(s), called to pharmacy gabapentin No Notes: Memor ia 300 MG Oral 1-12 (Same as: l Capsule 03:00: Neurontin) Herm chelsey 00 Saline No Notes: Memoria Flush 0.9% 1-12 (Same as: l 03:00: BD Markus Posiflush) Ondansetron Yes 4 mg = 1 Me moria 4 MG 1-12 tab, PO, l Disintegrat 00:29: Q8H, PRN He rmann ing Tablet 00 Nausea & Vomiting, allow tablet to dissolve on tongue start medication on 05/11/20 eRx sent to pharmacy [facility] #[id number] [place] [address] [place] [address] , # 12 tab, 0 Refill(s). .. Klonopin No Notes: Memoria 05-11 (Same As: l 23:10: KlonoPIN) [place] [facility] 3:Reproduc tive risk Hazardous Drug -- Refer to safe handling procedure PPE Matrix ketOROLAC Yes 4 days Memor ia 30 mg/mL 05-11 l injectable 22:49: MEDICATION H ermann solution 00 WASTE Product Size: 30 mg Product Wasted: ___ mg Lactated No 1,000 mL, Isreal adiel Ringers IV 05-11 Rate: 125 l 1,000 mL 21:03: ml/hr, Markus 00 Infuse over: 8 hr, Route: IV, Dosing Weight 65.909 kg, Total Volume: 1,000, Start date: 05/11/20 15:03:00 PIT CLERK, Duration: 30 day, Stop date: 06/10/20 15:02:00 PIT CLERK, 1.72, m2, 0 Acetaminoph No Notes: Do M emoria en 325 MG / 05-11 not exceed l Hydrocodone 21:03: 4gm/day of [place] Bitartrate 00 acetaminop 10 MG Oral hen. Tablet (Same as: [place] 325/10) Zofran ODT No Notes: Memor ia - (Same as: l 21:03: Zofran Markus 00 ODT) Benadryl No Notes: Memoria 05-11 (Same as: l 21:03: Benadryl) [place] 00 Melatonin 3 No Notes: Isreal adiel MG Extended 05-11 (Same as: l Release 21:03: Melatonin) Herm chelsey Tablet 00 Tums No Notes: Memoria 05-11 (Same As: l 21:03: Tums) [place] 00 Calcium Carbonate 500 mg = 200 mg elemental calcium Dose = mg calcium carbonate ( mg elemental calcium) Saline No Notes: Memoria Flush 0.9% 05-11 (Same as: l 21:03: BD [place] Posiflush) ceFAZolin No Route: IV, Me moria (ANES) 05-11 Drug form: l 19:57: INJ, ONCE, Stop date: 05/11/20 13:57:00 PIT CLERK lidocaine No Route: IV, Me moria (ANES) 05-11 Drug form: l 19:52: INJ, ONCE, Stop date: 05/11/20 13:52:00 PIT CLERK fentaNYL No Route: IV, Mem oria (ANES) 05-11 Drug form: l 19:52: INJ, ONCE, Stop date: 05/11/20 13:52:00 PIT CLERK propofol No Route: IV, Mem oria (ANES) 05-11 Drug form: l 19:52: INJ, ONCE, Stop date: 05/11/20 13:52:00 PIT CLERK midazolam No Route: IV, Me moria (ANES) 05-11 Drug form: l 19:47: SOLN, ONCE, Stop date: 05/11/20 13:47:00 PIT CLERK famotidine No Route: IV, M emoria (ANES) 05-11 Drug form: l 19:47: INJ, ONCE, Stop date: 05/11/20 13:47:00 PIT CLERK Oxycodone No 5 mg, Memoria Hydrochlori 05-11 Route: PO, l de 5 MG 19:36: Drug form: Herm chelsey Oral Tablet 00 TAB, Q4H, Dosing Weight 65.909, kg, PRN Pain Score 4-6, Start date: 05/11/20 13:36:00 PIT CLERK, Duration: 30 day, Stop date: 06/10/20 13:35:00 PIT CLERK Fentanyl 2020-0 No 25 Memoria 11 microgram, l 19:36: Route: Markus IVP, Q5Min, Dosing Weight 65.909, kg, PRN Pain Score 4-6, Priority: Routine, Start date: 05/11/20 13:36:00 PIT CLERK, Duration: 4 doses or times, Stop date: Limited # of times Flumazenil 0 No 0.2 mg, Isreal adiel 05-11 Route: l 19:36: IVP, PRN, Markus 00 Dosing Weight 65.909, kg, PRN Benzodiaze pine Reversal, Initial dose, Start date: 05/11/20 13:36:00 PIT CLERK, Duration: 30 day, Stop date: 06/10/20 13:35:00 PIT CLERK Naloxone No 0.4 mg, Memori a 05-11 Route: l 19:36: IVP, [place] 00 Q2MIN, Dosing Weight 65.909, kg, PRN Narcotic Reversal, Start date: 05/11/20 13:36:00 PIT CLERK, Duration: 8 doses or times, Stop date: Limited # of times Meperidine No 12.5 mg, Mem oria 05-11 Route: l 19:36: IVP, [place] 00 Q30Min, Dosing Weight 65.909, kg, PRN Other -See Comment, For shivering, Start date: 05/11/20 13:36:00 PIT CLERK, Duration: 2 doses or times, Stop date: Limited # of times Ondansetron No 4 mg, Memor ia 05-11 Route: l 19:36: IVP, ONCE, Dosing Weight 65.909, kg, PRN Nausea & Vomiting, Start date: 05/11/20 13:36:00 PIT CLERK tranexamic No Route: IV, M emoria acid (ANES) 05-11 Drug form: l 100 mg 19:29: INJ, Start date: 05/11/20 13:29:00 PIT CLERK, Stop date: 05/11/20 14:29:00 PIT CLERK propofol No Route: IV, Mem oria (ANES) 10 05-11 Drug form: l mg 19:17: INJ, Start date: 05/11/20 13:17:00 PIT CLERK, Stop date: 05/11/20 14:17:00 PIT CLERK Lactated No Route: IV, Mem oria Ringers 05-11 Total l Injection 19:07: Volume: Prachi nn IV (ANES) 00 1,000, 1000 mL Start date: 05/11/20 13:07:00 PIT CLERK, Stop date: 05/11/20 14:07:00 PIT CLERK ceFAZolin + No Notes: Isreal adiel sterile 05-11 (Same As: l water 20 mL 06:00: Ancef, Herm chelsey 00 Kefzol) MEDICATION WASTE Product Size: 1000 mg Product Wasted: ___ mg Zofran ODT No Notes: Memor ia 05-11 (Same as: l 06:00: Zofran [place] 00 ODT) CeleBREX No Notes: Memoria 05-11 NSAID. l 06:00: Please Markus check indication . Not for seizure. (Same As: CeleBREX) Cyklokapron No Notes: Isreal adiel + Sodium 05-11 (Same As: l Chloride 06:00: Cyklokapro Her hogan 0.9% IV 100 00 n) mL Lyrica No Notes: Memoria 05-11 (Same as: l 06:00: Lyrica) [place] 00 acetaminoph No Notes: Max Memoria en 05-11 acetaminop l 06:00: hen 4000 [place] 00 mg/day (4 gm/day). (Same as: Tylenol Extra Strength) dexamethaso No Notes: Isreal adiel ne 05-11 Concentrat l 06:00: ion: [place] 00 4mg/ml famotidine No Notes: Memor ia 05-11 (Same as: l 06:00: Pepcid) [place] 00 pantoprazol Yes 40 mg = 2 M emoria e 20 mg 05-07 tab, PO, l oral 16:46: Daily, # [place] enteric 00 60 tab, 0 coated Refill(s) tablet estradiol 2 Yes 2 mg = 1 Me moria mg oral 07 tab, PO, l tablet 16:26: Daily, # [place] 00 30 tab, 0 Refill(s) 1 ML [...] ia 07 QID, 0 l 16:25: Refill(s) [place] 00 ferrous Yes 250 mg = 1 [...] mg = 1 Me moria oxide 140 -07 cap, PO, l mg oral 16:23: Daily, # Sony n capsule 00 30 cap, 0 Refill(s) escitalopra Yes post 10mg QD Take [address] [facility] oxalate 9-10 traumatic by mouth [facility] (LEXAPRO) 15:01: stress daily. Medi payam 10 MG 57 [facility] Center tablet clonazePAM Yes 1mg [id number] Take [address] [facility] (KLONOPIN) 9-10 [id number] by mouth 3 [facility] 1 MG tablet 15:01: 3D (three) Med ical 57 times Center daily . multivitami 2019-0 Yes 1{tbl} QD Take 1 [facility] [...] times Center daily. gabapentin 2020-0 Yes 300mg Q.[id number] Take [address] [facility] (NEURONTIN) 9-10 [id number] mg by L u[facility] 300 MG 15:01: [...] Soln 20 mcg/mL baclofen 2020-0 Yes 10mg Q.[id number] Take [address] [facility] (LIORESAL) 9-10 [id number] by mouth 3 [facility] 10 MG 15:01: [...] disorder Center tablet clonazePAM 2020-0 Yes 1mg Q.[id number] Take [address] [facility] (KLONOPIN) 9-10 [id number] by mouth 3 [facility] 1 MG tablet [...] times Center daily. gabapentin 2020-0 Yes 300mg Q.[id number] Take [address] [facility] (NEURONTIN) 9-10 [id number] mg by L u[facility] 300 MG 15:01: [...] Soln 20 mcg/mL baclofen 2020-0 Yes 10mg Q.[id number] Take [address] [facility] (LIORESAL) 9-10 [id number] by mouth 3 [facility] 10 MG 15:01: 3D (three) Medical tablet 57 times Center daily. sertraline 2019-0 Yes 25mg QD Take [address] (ZOLOFT) 25 9-10 by mouth Luke s MG tablet 15:01: daily. Medica l 57 [place] hydrocortis 2020-0 2020- No 25mg Place 25 [facility] one 01-08 09-21 mg [place] (ANUSOL-) 00:00: 00:00 rectally o f 25 MG 00 :00 at Medicin suppository bedtime. e hydrocortis 2020-0 202- No [facility]mg [facility] [address] [facility] - 09-21 mg [place] (ANUSOL-) 00:00: 00:00 rectally o f 25 MG 00 :00 at Medicin suppository bedtime. e Sertraline 2020-0 Yes Take by Mem oria HCl (ZOLOFT 8-21 mouth. l OR) 21:16: Markus 37 clonazePAM 2020-0 Yes Take 1 mg Me moria (KLONOPIN 8-21 by mouth 3 l OR) 21:16: times Markus 37 daily. busPIRone 2020-0 Yes Take 10 mg Me moria (BUSPAR) 10 8-21 by mouth 3 l MG tablet 21:16: times [place] 37 daily. estradiol 2020-0 Yes estradiol Mem oria (ESTRACE) 1 8-21 1 mg l MG tablet 21:16: tablet Sony n 37 raNITIdine 2020-0 Yes Memoria HCl (ZANTAC 8-21 l OR) 21:16: [place] 37 cefUROXime 2020-0 Yes cefuroxime M emoria (CEFTIN) 8-21 axetil 500 l 500 MG 21:16: mg tablet Sony n tablet 37 escitalopra 2020-0 Yes Take 20 mg Memoria m (LEXAPRO) 8-21 by mouth l 20 MG 21:16: daily. Markus tablet 37 fluconazole 2020-0 Yes Take 150 Me moria (DIFLUCAN) 8-21 mg by l 150 MG 21:16: mouth [place] tablet 37 daily. loperamide 2019-0 Yes Take 2 mg Me moria (IMMODIUM) 8-21 by mouth l 2 MG 21:16: daily. Markus capsule 37 Mesalamine 2020-0 Yes Take 1.2 Mem oria 1.2 g TBEC 8-21 mg by l 21:16: mouth [place] 37 daily. montelukast 2020-0 Yes Take 10 mg Memoria (SINGULAIR) 8-21 by mouth l 10 MG 21:16: daily. Markus tablet 37 quetiapine 2020-0 Yes Take 50 mg M emoria (SEROQUEL) 8-21 by mouth l 50 MG 21:16: daily. [place] tablet 37 tramadol 2019-0 2020- No 50mg Take 50 mg [facility] (ULTRAM) 50 12-1618 by mouth Col [facility] MG tablet 19:30: 00:00 daily. of 33 :00 Medicin e sucralfate 2019- 2020- No 1g Take 1 g [facility] (CARAFATE) 12-16-18 by mouth Ronny ege 1 g tablet 19:30: 00:00 daily. of 30 :00 Medicin e predniSONE 2019-0 2020- No 5mg Take 5 mg [facility] (DELTASONE) 12-1618 by mouth Col lege 5 MG tablet 19:30: 00:00 daily. of 24 :00 Medicin e metronidazo 2019-0 2019- No 500mg Take 500 Kev le (FLAGYL) 8- 08-18 mg by Colleg e 500 MG 19:30: 00:00 mouth of tablet 21 :00 daily. Medicin e metoclopram 0 2019- No 10mg Take 10 mg [facility] sam 8-16 12-18 by mouth [place] (REGLAN) 10 19:30: 00:00 every 6 of MG tablet 21 :00 hours. Medicin e hydrocortis 0 2020- No 20mg Take 20 mg [facility] one - 08-18 by mouth [place] (CORTEF) 20 19:30: 00:00 daily. of MG tablet 15 :00 Medicin e diazepam 2019- No 10mg Take 10 mg [facility] (VALIUM) 10 12-16 0818 by mouth [facility] mg tablet 19:30: 00:00 daily. of 12 :00 Medicin e celecoxib 0 2019- No 100mg Take 100 [facility] (CELEBREX) 12-16 08-18 mg by [place] 100 MG 19:30: 00:00 mouth of capsule 09 :00 daily. Medicin e alprazolam 2020- No alprazolam [facility] (XANAX) 1 -16 12-18 1 mg College MG tablet 19:30: 00:00 tablet T1T o f 03 :00 PO QD Medicin e Sertraline 2019-0 Yes Take by [place] esthela HCl (ZOLOFT 8-18 mouth. Colleg e [...] daily. Medicin e estradiol 2019-0 Yes estradiol [place] sethela (ESTRACE) 1 8-18 1 mg College MG tablet 18:53: tablet of 39 Medicin e raNITIdine 2019-0 Yes [facility] HCl (ZANTAC 8-18 College OR) 18:53: [...] montelukast 2020-0 Yes 10mg Take 10 mg [facility] (SINGULAIR) 8-18 by mouth Ronny ege 10 MG 18:53: daily. of tablet 39 Medicin e quetiapine 2020-0 Yes 50mg Take 50 mg [facility] (SEROQUEL) 8-18 by mouth Colle ge 50 MG 18:53: daily. of tablet 39 Medicin e fluconazole 2020-0 Yes 150mg Take 150 [facility] (DIFLUCAN) 8-18 mg by [place] 150 MG 13:53: mouth of tablet 39 daily. Medicin e fluconazole 2020-0 Yes 150mg Take 150 [facility] (DIFLUCAN) 8-18 mg by [place] 150 MG 13:53: mouth of tablet 39 daily. Medicin e fluconazole 2020-0 Yes 150mg Take 150 [facility] (DIFLUCAN) 8-18 mg by [place] 150 MG 13:53: mouth of tablet 39 daily. Medicin e alprazolam 2020-0 No alprazolam M emoria (XANAX) 1 8-18 1 mg l MG tablet 00:00: tablet T1T He rmann 00 PO QD celecoxib 2020-0 No Take 100 Isreal adiel (CELEBREX) 8-18 mg by l 100 MG 00:00: mouth Markus capsule 00 daily. diazepam 2019-0 No Take 10 mg Mem oria (VALIUM) 10 8-18 by mouth l mg tablet 00:00: daily. Sony n 00 metronidazo 2019-0 No Take 500 Me moria le (FLAGYL) 8-18 mg by l 500 MG 00:00: mouth Markus tablet 00 daily. metoclopram 0 No Take 10 mg Memoria sam 8-18 by mouth l (REGLAN) 10 00:00: every 6 Her hogan MG tablet 00 hours. predniSONE No Take 5 mg Me moria (DELTASONE) 8-18 by mouth l 5 MG tablet 00:00: daily. Herm chelsey 00 hydrocortis 2019-0 No Take 20 mg Memoria one 8-18 by mouth l (CORTEF) 20 00:00: daily. Herm chelsey MG tablet 00 sucralfate No Take 1 g Mem oria (CARAFATE) 8-18 by mouth l 1 g tablet 00:00: daily. Prachi nn 00 tramadol No Take 50 mg Mem oria (ULTRAM) 50 8-18 by mouth l MG tablet 00:00: daily. Sony n Na Yes [SUPREP] Memoria Sulfate-K 8-14 Take as l Sulfate-Mg 00:00: directed. He rmann Sulf 00 (SUPREP BOWEL PREP KIT) 17.5-3.13-1 .6 GM/177ML SOLN diphenoxyla 0 Yes Take 1 Tab Memoria te-atropine 8-14 by mouth 4 l (LOMOTIL) 00:00: times [place] 2.5-0.025 00 daily as MG per needed for tablet Diarrhea. Na Yes [SUPREP] Kev Sulfate-K 8-14 Take as College Sulfate-Mg 00:00: directed. of Sulf 00 Medicin (SUPREP e BOWEL PREP KIT) 17.5-3.13-1 .6 GM/177ML SOLN diphenoxyla 2019-0 Yes 1{tbl} Take 1 Tab Kev te-atropine 8-14 by mouth 4 Co llege (LOMOTIL) 00:00: times of 2.5-0.025 00 daily as Medici n MG per needed for e tablet Diarrhea. Na 2020- No [SUPREP] [facility] Sulfate-K 8-14 - Take as Colleg e Sulfate-Mg 00:00: 00:00 directed. o f Sulf 00 :00 Medicin (SUPREP e BOWEL PREP KIT) 17.5-3.13-1 .6 GM/177ML SOLN Na 2020-0 2020- No [SUPREP] Kev Sulfate-K 12-12 Take as Colleg e Sulfate-Mg 00:00: 00:00 directed. o f Sulf 00 :00 Medicin (SUPREP e BOWEL PREP KIT) 17.5-3.13-1 .6 GM/177ML SOLN mesalamine 2020-0 Yes Take 2,400 M emoria (LIALDA) 8-12 mg by l 1.2 gram EC 18:01: mouth Prachi nn tablet 52 daily with breakfast. pantoprazol 2019-0 Yes Take 40 mg Memoria e 40 mg EC 8-12 by mouth l tablet 18:01: daily. 52 clonazePAM 2020-0 Yes Take 1 mg Me moria 1 mg tablet 8-12 by mouth 3 l 18:01: (three) Markus 52 times daily. metroNIDAZO 2020-0 Yes Take 500 Me moria LE (FLAGYL) 8-12 mg by l 500 mg 18:01: mouth 2 Markus tablet 52 (two) times daily. multivitami 2020-0 Yes Take 1 Isreal adiel n, 8-12 tablet by l tx-minerals 18:01: mouth Prachi nn (COMPLETE 52 daily. MULTIVITAMI N) tablet ranitidine 2020-0 Yes Memoria 150 mg 8-12 l capsule 18:01: 52 sertraline 2020-0 Yes Take by Mem oria HCl 8-12 mouth. l (SERTRALINE 18:01: Sony n ORAL) 52 baclofen 10 2019-0 Yes baclofen Me moria mg tablet 8-12 10 mg l 18:01: tablet 52 busPIRone 2020-0 Yes Take 10 mg Me moria 10 mg 8-12 by mouth. l tablet 18:01: 52 hydroCHLORO 2020-0 Yes hydrochlor Memoria thiazide 25 8-12 othiazide l mg tablet 18:01: 25 mg [place] 52 tablet hydrocortis 2020-0 Yes Take 20 mg Memoria one 20 mg 8-12 by mouth. l tablet 18:01: montelukast 2020-0 Yes montelukas Memoria 10 mg 8-12 t 10 mg l tablet 18:01: tablet Markus 52 QUEtiapine 2020-0 Yes quetiapine M emoria 50 mg 8-12 50 mg l tablet 18:01: tablet Markus 52 valACYclovi 2020-0 Yes valacyclov Methodi r [...] 00 USLY EVERY 28 DAYS STELARA 90 2019-0 Yes [id number] INJECT B [facility] MG/ML 3-27 90MG College injection 00:00: SUBCUTANEO of 00 USLY EVERY Medicin 28 DAYS e alprazolam 2019-0 Yes alprazolam M emoria (XANAX) 1 3-12 1 mg l MG tablet 18:27: tablet T1T He rmann 32 PO QD celecoxib 2019-0 Yes Take 100 Isreal adiel (CELEBREX) 3-12 mg by l 100 MG 18:27: mouth [place] capsule 32 daily. diazepam 2019-0 Yes Take 10 mg Mem oria (VALIUM) 10 3-12 by mouth l mg tablet 18:27: daily. Sony n 32 metronidazo 2020-0 Yes Take 500 Me moria le (FLAGYL) 3-12 mg by l 500 MG 18:27: mouth Markus tablet 32 daily. metoclopram 2019-0 Yes Take [...] 32 celecoxib 2020-0 Yes 100mg Take 100 [place] [facility] (CELEBREX) 3-12 mg by College 100 MG 16:41: mouth of capsule 28 daily. Medicin e predniSONE 2020-0 Yes 5mg Take 5 mg [facility] (DELTASONE) 3-12 by mouth Ronny ege 5 MG tablet 16:41: daily. of 28 Medicin e hydrocortis 2020-0 Yes 20mg Take 20 mg [facility] one 3-12 by mouth College (CORTEF) 20 16:41: daily. of MG tablet 28 Medicin e quetiapine 2020-0 Yes 50mg Take 50 mg [facility] (SEROQUEL) 3-12 by mouth Colle ge 50 MG 16:41: daily. of tablet 28 Medicin e sucralfate 2020-0 Yes 1g Take 1 g [place] [facility] (CARAFATE) 3-12 by mouth Colle ge 1 g tablet 16:41: daily. of 28 Medicin e tramadol 2020-0 Yes 50mg Take 50 mg [place] [facility] (ULTRAM) 50 3-12 by mouth Ronny ege MG tablet 16:41: daily. of 28 Medicin e escitalopra 2020-0 Yes 20mg Take 20 mg [facility] (LEXAPRO) 3-12 by mouth [facility] 20 MG 16:29: daily. of tablet 07 Medicin e diazepam 2020-0 Yes 10mg Take 10 mg [place] [facility] (VALIUM) 10 3-12 by mouth [facility] mg tablet 16:29: daily. of 07 Medicin e fluconazole 2020-0 Yes 150mg Take 150 [facility] (DIFLUCAN) 3-12 mg by [place] 150 MG 16:29: mouth of tablet 07 daily. Medicin e loperamide 2020-0 Yes 2mg Take 2 mg [facility] (IMMODIUM) 3-12 by mouth [facility] 2 MG 16:29: daily. of capsule 07 Medicin e Mesalamine 2020-0 Yes 1.2mg Take 1.2 [facility] 1.2 g TBEC 3-12 mg by [place] 16:29: mouth of 07 daily. Medicin e metronidazo 2020-0 Yes 500mg Take 500 B [facility] le (FLAGYL) 3-12 mg by [place] 500 MG 16:29: mouth of tablet 07 daily. Medicin e metoclopram 2020-0 Yes 10mg Take 10 mg [facility] sam 3-12 by mouth [facility] (REGLAN) 10 16:29: every 6 of MG tablet 07 hours. Medicin e montelukast 2020-0 Yes 10mg Take 10 mg [facility] (SINGULAIR) 3-12 by mouth [place] [facility] 10 MG 16:29: daily. of tablet 07 Medicin e estradiol 2020-0 Yes estradiol [place] [facility] (ESTRACE) 1 3-12 1 mg [facility] [...] Medicin e Sertraline 2020-0 Yes Take by [place] [facility] HCl (ZOLOFT 3-12 mouth. [facility] e [...] by mouth every day pantoprazol 2020-0 Yes [id number] 40mg Take 1 Tab [facility] e 3-02 by mouth 2 [facility] (PROTONIX) 00:00: times of 40 MG 00 daily Medicin tablet (before e meals). 1 tablet by mouth every day pantoprazol 2020-0 Yes [id number] 40mg Take 1 Tab [facility] e 3-02 by mouth 2 [facility] (PROTONIX) 00:00: times of 40 MG 00 daily Medicin tablet (before e meals). 1 tablet by mouth every day PANTOPRAZOL 2020-0 2020- No 40mg Take 40 mg [facility] E SODIUM OR 2-25 02-25 by mouth Col lege 19:38: 00:00 daily. of 50 :00 Medicin e PANTOPRAZOL 2020-0 No Take 40 mg [facility] E SODIUM OR 2-25 by mouth l 00:00: daily. Pantoprazol 2020-0 Yes Take 40 mg [facility] Sodium 40 2-25 by mouth l MG PACK 00:00: daily. Pantoprazol 2020-0 Yes 40mg Take 40 mg [facility] e Sodium 40 2-25 by mouth [place] [facility] MG PACK 00:00: daily. of Medicin e Pantoprazol 2020-0 Yes 40mg Take 40 mg Kev e Sodium 40 2-25 by mouth Ronny ege MG PACK 00:00: daily. of Medicin e PANTOPRAZOL 2020-0 Yes Take 40 mg Memoria E SODIUM OR 2-19 by mouth l 17:27: daily. Sertraline 2019-0 Yes Take by [place] esthela HCl (ZOLOFT 2-19 mouth. Colleg e OR) 16:59: of 05 Medicin e PANTOPRAZOL 2020-0 Yes 40mg Take 40 mg Kev E SODIUM OR 2-19 by mouth Ronny ege 16:59: daily. of Medicin e clonazePAM 2020-0 Yes 1mg Take 1 mg [facility] (KLONOPIN 2-19 by mouth 3 Ronny ege OR) 16:59: times of 05 daily. Medicin e busPIRone 2020-0 Yes 10mg Take 10 mg [facility] (BUSPAR) 10 2-19 by mouth 3 Co llege MG tablet 16:59: times of 05 daily. Medicin e Sertraline 2020-0 Yes Take by [place] esthela HCl (ZOLOFT 2-19 mouth. Colleg e [...] per tablet Sertraline 2020-0 Yes Take by [place] esthela HCl (ZOLOFT 2-12 mouth. Colleg e [...] en-codeine 2-12 needed. l (TYLENOL/CO 00:00: Sony COLONINE #3) 00 300-30 MG per tablet busPIRone [...] en-codeine 12-21 by mouth. l (TYLENOL 00:00: Markus #4) 300-60 00 MG per tablet acetaminoph Yes 1{tbl} Take 1 Tab [facility] en-codeine - by mouth. Ronny ege (TYLENOL 00:00: of [...] :00 MOUTH l TWICE DAILY acetaminoph 2021- 1{tbl} Q.5D Take 1 M ethodi en-codeine 12-[address] (TYLENOL 00:00: 00:00 mouth 2 Hospi ta WITH 00 :00 (two) l CODEINE #4) times a 300-60 mg day. per tablet gabapentin 2021- TAKE Method i (NEURONTIN) 12-21 ONE(1) st 300 mg 00:00: 00:00 CAPSULE BY [facility] capsule 00 :00 MOUTH l TWICE DAILY acetaminoph 2019- 1{tbl} Take 1 Tab [facility] en-codeine 12-21 08-18 by mouth. Col lege (TYLENOL 00:00: 00:00 of #4) 300-60 00 :00 Medicin MG per e tablet acetaminoph Yes 300 mg as M emoria en-codeine 8-22 needed. l (TYLENOL/CO 14:16: Sony espinosa DEINE #3) 10 300-30 MG per tablet busPIRone Yes 10mg Take 10 mg [facility] (BUSPAR) 10 8-20 by mouth 3 Co llege MG tablet 15:05: times of 52 daily. Medicin e Sertraline Yes Take by [place] esthela HCl (ZOLOFT 8-20 mouth. Colleg e OR) 15:03: of 59 Medicin e PANTOPRAZOL Yes 40mg Take 40 mg [facility] E SODIUM OR 8-20 by mouth Ronny ege 15:03: daily. of 59 Medicin e clonazePAM Yes 1mg Take 1 mg [facility] (KLONOPIN 8-20 by mouth 3 Ronny ege OR) 15:03: times of 59 daily. Medicin e acetaminoph Yes 300mg 300 mg as [facility] en-codeine 8-20 needed. Colleg e (TYLENOL/CO 15:03: of DEINE #3) 59 Medicin 300-30 MG e per tablet Cholestyram No Take 4 g Me moria ine 4 8-20 by mouth 3 l GM/DOSE 00:00: times Markus POWD 00 daily. dicyclomine 2019- Yes Take 1 Cap Memoria (BENTYL) 10 8-20 by mouth 4 l MG capsule 00:00: times Sony n 00 daily (before meals and nightly). 1 by mouth four times a day Ferrous 2019-0 Yes Take 325 Memori a Sulfate 8-20 mg by l (IRON) 325 00:00: mouth two [place] (65 Fe) MG 00 times TABS daily. Cholecalcif 2019-0 Yes Take 2,000 Memoria estephania 8-20 Units [...] 2,000 unit capsule capsule dicyclomine 2018-0 Yes [id number] 10mg Take 1 Cap Kev (BENTYL) 10 8-20 by mouth 4 Co llege MG capsule 00:00: times of 00 daily Medicin (before e meals and nightly). 1 by mouth four times a day Ferrous 2019-0 Yes [id number] 325mg Take 325 [facility] Sulfate 8-20 mg by [place] (IRON) 325 00:00: mouth two of (65 Fe) MG 00 times Medicin TABS daily. e Cholecalcif 2019-0 Yes [id number] 2000U Take 2,000 [facility] estephania 8-20 Units by [place] (VITAMIN D) 00:00: mouth of 2000 units 00 daily. Medicin CAPS e Cholestyram 2019-0 Yes [id number] 4g Take 4 g Kev ine 4 8-20 by mouth 3 College GM/DOSE 00:00: times of POWD 00 daily. Medicin e dicyclomine 2019-0 Yes [id number] 10mg Take 1 Cap Kev (BENTYL) 10 8-20 by mouth 4 Co llege MG capsule 00:00: times of 00 daily Medicin (before e meals and nightly). 1 by mouth four times a day Ferrous 2019-0 Yes [id number] 325mg Take 325 [facility] Sulfate 8-20 mg by [place] (IRON) 325 00:00: mouth two of (65 Fe) MG 00 times Medicin TABS daily. e Cholecalcif 2019-0 Yes [id number] 2000U Take 2,000 [facility] estephania 8-20 Units by [place] (VITAMIN D) 00:00: mouth of 2000 units 00 daily. Medicin CAPS e Cholestyram 2019- Yes [id number] 4g Take 4 g Kev ine 4 8-20 by mouth 3 College GM/DOSE 00:00: times of POWD 00 daily. Medicin e dicyclomine 2019- Yes [id number] 10mg Take 1 Cap [facility] (BENTYL) 10 8-20 by mouth 4 Co llege MG capsule 00:00: times of 00 daily Medicin (before e meals and nightly). 1 by mouth four times a day Ferrous 2019-0 Yes [id number] 325mg Take 325 [facility] [place] Sulfate 8-20 mg by [place] (IRON) 325 00:00: mouth two of (65 Fe) MG 00 times Medicin TABS daily. e Cholecalcif 2019-0 Yes [id number] 2000U Take 2,000 [facility] estephania 8-20 Units by [place] (VITAMIN D) 00:00: mouth of 2000 units 00 daily. Medicin CAPS e Cholestyram 2019-0 Yes [id number] 4g Take 4 g Kev ine 4 8-20 by mouth 3 College GM/DOSE 00:00: times of POWD 00 daily. Medicin e dicyclomine 2019-0 Yes [id number] 10mg Take 1 Cap Kev (BENTYL) 10 8-20 by mouth 4 Co llege MG capsule 00:00: times of 00 daily Medicin (before e meals and nightly). 1 by mouth four times a day Ferrous 0 Yes [id number] 325mg Take 325 [facility] [place] Sulfate 8-20 mg by College (IRON) 325 00:00: mouth two of (65 Fe) MG 00 times Medicin TABS daily. e Cholecalcif 20190 Yes [id number] 2000U Take 2,000 [facility] estephania 8-20 Units by College (VITAMIN D) 00:00: mouth of 2000 units 00 daily. Medicin CAPS e Cholestyram 2019-0 Yes [id number] 4g Take 4 g [facility] ine 4 8-20 by mouth 3 College GM/DOSE 00:00: times of POWD 00 daily. Medicin e dicyclomine 2019-0 Yes [id number] 10mg Take 1 Cap Kev (BENTYL) 10 8-20 by mouth 4 Co llege MG capsule 00:00: times of 00 daily Medicin (before e meals and nightly). 1 by mouth four times a day Ferrous 2018-0 Yes [id number] 325mg Take 325 [facility] [place] Sulfate 8-20 mg by College (IRON) 325 00:00: mouth two of (65 Fe) MG 00 times Medicin TABS daily. e Cholecalcif 0 Yes [id number] 2000U Take 2,000 Kev estephania 8-20 Units by College (VITAMIN D) 00:00: mouth of 2000 units 00 daily. Medicin CAPS e dicyclomine 2018-0 Yes [id number] 10mg Take 1 Cap [facility] (BENTYL) 10 8-20 by mouth 4 Co llege MG capsule 00:00: times of 00 daily Medicin (before e meals and nightly). 1 by mouth four times a day Ferrous 2019-0 Yes [id number] 325mg Take 325 [facility] [place] Sulfate 8-20 mg by College (IRON) 325 00:00: mouth two of (65 Fe) MG 00 times Medicin TABS daily. e Cholecalcif 2019-0 Yes [id number] 2000U Take 2,000 Kev estephania 8-20 Units by College (VITAMIN D) 00:00: mouth of 2000 units 00 daily. Medicin CAPS e Ferrous 2019-0 Yes [id number] 325mg Take 325 [facility] Sulfate 8-20 mg by College (IRON) 325 00:00: mouth two of (65 Fe) MG 00 times Medicin TABS daily. e Cholecalcif Yes [id number] 2000U Take 2,000 [facility] estephania 8-20 Units by College (VITAMIN D) 00:00: mouth of 2000 units 00 daily. Medicin CAPS e Ferrous 2019- Yes [id number] 325mg Take 325 [facility] [place] Sulfate 8-20 mg by College (IRON) 325 00:00: mouth two of (65 Fe) MG 00 times Medicin TABS daily. e Cholecalcif Yes [id number] 2000U Take 2,000 Kev estephania 8-20 Units by College (VITAMIN D) 00:00: mouth of 2000 units 00 daily. Medicin CAPS e Ferrous 2018- Yes [id number] 325mg Take 325 [facility] [place] Sulfate 8-20 mg by College (IRON) 325 00:00: mouth two of (65 Fe) MG 00 times Medicin TABS daily. e Cholecalcif Yes [id number] 2000U Take 2,000 Kev estephania 8-20 Units by [place] (VITAMIN D) 00:00: mouth of 2000 units 00 daily. Medicin CAPS e Cholestyram Yes [id number] 4g Take 4 g Kev ine 4 8-20 by mouth 3 College GM/DOSE 00:00: times of POWD 00 daily. Medicin e dicyclomine 2020- No [id number] 10mg Take 1 Cap [facility] (BENTYL) 10 12-18- by mouth 4 C ollege MG capsule 00:00: 00:00 times of 00 :00 daily Medicin (before e meals and nightly). 1 by mouth four times a day dicyclomine 2018-2020- No [id number] 10mg Take 1 Cap [facility] (BENTYL) 10 8-18 01-21 by mouth 4 C ollege MG capsule 00:00: 00:00 times of 00 :00 daily Medicin (before e meals and nightly). 1 by mouth four times a day Cholestyram 2020- No [id number] 4g Take 4 g Kev ine 4 8-20 08-18 by mouth 3 College GM/DOSE 00:00: 00:00 times of POWD 00 :00 daily. Medicin e escitalopra Yes escitalopr [facility] (LEXAPRO) 8-08 am 10 mg l 10 MG 00:00: tablet [place] tablet 00 escitalopra Yes escitalopr Memoria m oxalate 8-08 am 10 mg l 10 mg 00:00: tablet [place] tablet 00 escitalopra Yes TK 1 T PO M ethodi m (LEXAPRO) 8-[address] 10 MG 00:00: [facility]osp[facility] tablet 00 l escitalopra Yes TK 1 T PO M ethodi m (LEXAPRO) 8-[address] 10 MG 00:00: [facility]ospita tablet 00 l escitalopra Yes TK 1 T PO M ethodi m (LEXAPRO) 8-[address] 10 MG 00:00: Hospita tablet 00 l escitalopra Yes TK 1 T PO M ethodi m (LEXAPRO) 8-[address] 10 MG 00:00: Hospita tablet 00 l escitalopra Yes escitalopr [facility] m (LEXAPRO) 8-08 am 10 mg Ronny ege 10 MG 00:00: tablet of tablet 00 Medicin e escitalopra Yes escitalopr Kev m (LEXAPRO) 8-08 am 10 mg [facility] ege 10 MG 00:00: tablet of tablet 00 Medicin e escitalopra Yes escitalopr [facility] (LEXAPRO) 8-08 am 10 mg Ronny ege 10 MG 00:00: tablet of tablet 00 Medicin e escitalopra Yes escitalopr [facility] (LEXAPRO) 8-08 am 10 mg Ronny ege 10 MG 00:00: tablet of tablet 00 Medicin e escitalopra Yes escitalopr Kev m (LEXAPRO) 8-08 am 10 mg Ronny ege 10 MG 00:00: tablet of tablet 00 Medicin e hydrocortis Yes Take 1 Tab Memoria one 7-30 by mouth l (CORTEF) 10 00:00: two times H ermann MG tablet 00 daily for 90 days. hydrocortis 0 2019- No 10mg Take 1 Tab Kev one 7-30 10-29 by mouth College (CORTEF) 10 00:00: 04:59 two times of MG tablet 00 :00 daily for Medic in 90 days. e valACYclovi Yes Memori a r 1 gram 11-16 l tablet 00:00: [place] 00 hydrocortis 2021- No U REC BID [facility] one 11-[address] (ANUSOL-) 00:00: 00:00 DAYS Hospi ta 2.5 % 00 :00 l rectal cream valACYclovi 2021- No Metho di r (VALTREX) 11-16 st 1000 MG 00:00: 00:00 Hospita tablet 00 :00 l hydrocortis 2021- No U REC BID Methodi one 11-[address] (ANUSOL-) 00:00: 00:00 DAYS Hospi ta 2.5 % 00 :00 l rectal cream valACYclovi 2021- No Metho di r (VALTREX) 11-16 st 1000 MG 00:00: 00:00 Hospita tablet 00 :00 l hydrocortis 2021- No U REC BID [facility]i one 11[facility] [facility]: 00:00 DAYS Hospi ta 2.5 % 00 :00 l rectal cream valACYclovi 2021- No Metho di r (VALTREX) 11-16 st 1000 MG 00:00: 00:00 Hospita tablet 00 :00 l hydrocortis 2021- No U REC BID Methodi one 11-[address] (ANUSOL-) 00:00: 00:00 DAYS Hospi ta 2.5 % [...] ia m Oxalate 6-18 l 00:00: Clonazepam Yes FOUR TIMES M emoria 6-18 DAILY [...] 5-07 applicatio l (CLOTRIMAZO 00:00: n Sony espinosa LE-7) 1 % 00 vaginally CREA daily. [...] mouth l 150 MG 00:00: daily. - Markus tablet 00 then repeat dose in 7 weeks Clotrimazol Yes [id number] 1{appli Place 1 [facility] e 5-07 cation} applicatio Colleg e (CLOTRIMAZO 00:00: n of ) 1 % 00 vaginally Medic in CREA daily. e pantoprazol Yes [id number] 40mg Take 1 Tab [facility] e 5-07 by mouth 2 College (PROTONIX) 00:00: times of 40 MG 00 daily Medicin tablet (before e meals). 1 tablet by mouth every day Ustekinumab Yes 90mg Inject 90 [facility] (STELARA) 5-07 mg into College 90 MG/ML 00:00: the skin of injection 00 every 28 Medici n days. e Clotrimazol Yes [id number] 1{appli Place 1 Kev e 5-07 cation} applicatio Colleg e (CLOTRIMAZO 00:00: n of ) 1 % 00 vaginally Medic in CREA daily. e pantoprazol Yes [id number] 40mg Take 1 Tab Kev e 5-07 by mouth 2 College (PROTONIX) 00:00: times of 40 MG 00 daily Medicin tablet (before e meals). 1 tablet by mouth every day Ustekinumab Yes 90mg Inject 90 [facility] (STELARA) 5-07 mg into College 90 MG/ML 00:00: the skin of injection 00 every 28 Medici n days. e Clotrimazol Yes [id number] 1{appli Place 1 [facility] e 5-07 cation} applicatio Colleg e (CLOTRIMAZO 00:00: n of ) 1 % 00 vaginally Medic in CREA daily. e Ustekinumab Yes 90mg Inject 90 [facility] (STELARA) 5-07 mg into College 90 MG/ML 00:00: the skin of injection 00 every 28 Medici n days. e Clotrimazol Yes [id number] 1{appli Place 1 [facility] e 5-07 cation} applicatio Colleg e (CLOTRIMAZO 00:00: n of ) 1 % 00 vaginally Medic in CREA daily. e Ustekinumab Yes 90mg Inject 90 [facility] (STELARA) 5-07 mg into College 90 MG/ML 00:00: the skin of injection 00 every 28 Medici n days. e Clotrimazol Yes [id number] 1{appli Place 1 [facility] e 5-07 cation} applicatio Colleg e (CLOTRIMAZO 00:00: n of ) 1 % 00 vaginally Medic in CREA daily. e Clotrimazol Yes [id number] 1{appli Place 1 [facility] e 5-07 cation} applicatio Colleg e (CLOTRIMAZO 00:00: n of ) 1 % 00 vaginally Medic in CREA daily. e Clotrimazol Yes [id number] 1{appli Place 1 Kev e 5-07 cation} applicatio Colleg e (CLOTRIMAZO 00:00: n of ) 1 % 00 vaginally Medic in CREA daily. e Clotrimazol Yes [id number] 1{appli Place 1 [facility] e 5-07 cation} applicatio Colleg e (CLOTRIMAZO 00:00: n of ) 1 % 00 vaginally Medic in CREA daily. e fluconazole Yes [id number] 150mg Take 1 Tab Kev (DIFLUCAN) 5-07 by mouth Colle ge 150 MG 00:00: daily. - of tablet 00 then Medicin repeat e dose in 7 weeks Clotrimazol Yes [id number] 1{appli Place 1 Kev e 5-07 cation} applicatio Colleg [facility] (CLOTRIMAZO 00:00: n of ) 1 % 00 vaginally Medic in CREA daily. e pantoprazol Yes [id number] 40mg Take 1 Tab [facility] e 5-07 by mouth 2 College [...] injection 00 :00 l pantoprazol 2019- No [id number] 40mg Take 1 Tab [facility] e 09-04 03-02 by mouth 2 College (PROTONIX) 00:00: 00:00 times of 40 MG 00 :00 daily Medicin tablet (before e meals). 1 tablet by mouth every day fluconazole 2020- No [id number] 150mg Take 1 Tab Kev (DIFLUCAN) 09-04 02-12 by mouth [facility]ny e[facility] 150 MG 00:00: 00:00 daily. - of tablet 00 :00 then Medicin repeat e dose in 7 weeks Oxycodone No TK ONE T Isreal adiel HCl 10 MG 5-01 PO Q 4 H l TABS 00:00: PRN P [facility] 00 Oxycodone Yes TK ONE T [place] [facility] HCl 10 MG 5-01 PO Q 4 H Colleg e TABS 00:00: PRN P of 00 Medicin e Oxycodone Yes TK ONE T [place] [facility] HCl 10 MG 5-01 PO Q 4 H Colleg e TABS 00:00: PRN P of 00 Medicin e Oxycodone 2019- No TK ONE T [place] esthela HCl 10 MG 5-05 02- PO Q 4 H Colle ge TABS 00:00: 00:00 PRN P of 00 :00 Medicin e Oxycodone 2019- No TK ONE T [place] esthela HCl 10 MG 5-06-19 PO Q 4 H Colle ge TABS [...] of capsule 00 14 DAYS Medicin e gabapentin Yes Take 300 Mem [facility]ria (NEURONTIN) 4-25 mg by l 300 MG 00:00: mouth Markus capsule 00 daily. clindamycin No TK ONE C Me moria (CLEOCIN) 4-25 PO Q 6 l 300 MG 00:00: HOURS FOR Sony n capsule 00 14 DAYS gabapentin Yes gabapentin M emoria 300 mg 4-25 300 mg l capsule 00:00: capsule [facility]us 00 clindamycin 2020- No TK ONE C [facility] (CLEOCIN) 4-25 02-12 PO Q 6 Colleg e 300 MG 00:00: 00:00 HOURS FOR of capsule 00 :00 14 DAYS Medicin e STELARA 90 2017-05 Yes INJECT [facility] mg/mL Syrg 2-12 [facility] 00[facility]: SUBCUT[facility]O [facility] 00 USLY 8 Center WEEKS AFTER INNDUCTION DOSE THEN EVERY 8 WEEKS THEREAFTER STELARA 90 2017-05 Yes INJECT [facility] t mg/mL Syrg 2-12 90MG [facility] 00:00: SUBCUTANEO Medical 00 USLY 8 Center WEEKS AFTER INNDUCTION DOSE THEN EVERY 8 WEEKS THEREAFTER Ustekinumab 2017-05 Yes Stelara 90 Memoria (STELARA) 2-12 mg/mL l 90 mg/mL SC 00:00: subcutaneo Markus injection 00 us syringe ustekinumab 2017-05 Yes INJECT Meth deepti (STELARA) [...] 0-21 Route: l 23:01: IVP, Drug Markus form: INJ, ONCE, Dosing [...] Chloride 0-21 2,000 l 0.9% 20:51: ml/hr, [place] (Bolus) IV 00 Infuse Over: 30 minutes, [...] tab, PO, l tablet 15:02: Daily, X [place] 00 30 day, # 60 tab, 0 [...] 6-13 (Same as: l 16:00: Flagyl) Markus Take with food/ avoid alcohol mesalamine No Notes: Memor ia 6-13 (Same as: l 14:31: Delzicol) [place] 00 mesalamine No 2.4 gm, 2 Me moria 1200 MG 6-13 tab, l Enteric 14:00: Route: PO, Herm chelsey Coated 00 Drug form: Tablet ECTAB, Daily, Dosing Weight 51.392, kg, Start date: 10/11/16 9:00:00 CDT, Duration: 30 day, Stop date: 11/09/16 9:00:00 CDT remove No Notes: Memoria patch 6-13 Remove old l 10:00: patch Markus before applicatio n of new patch. WASTE: F/P - P Waste Black; E - P Waste Black Alprazolam No Notes: Memor ia 0.25 MG 6-12 With food l Oral Tablet 14:51: or milk Her hogan [Xanax] (Same as: Xanax) pantoprazol No Notes: For Memoria e 6-12 IV push l 14:30: reconstitu [place] 00 te with 10 ml 0.9% sodium chloride and push over 2 minutes. (Same as: Protonix) methylPREDN No Notes: Isreal adiel ISolone 6-12 (Same l SODium 14:00: as:Solu-ME Prachi nn SUCCinate 00 DROL, A-Methapre d) Nicotine No Notes: Memoria 6-12 (Same as: l 10:00: Habitrol) [place] "Remove old patch before applicatio n of [...] 0.9% 6-12 (Same as: l 07:06: BD [place] Posiflush) Acetaminoph No Notes: Isreal adiel en 325 MG / 6-12 (Same as: l Hydrocodone 07:06: [place] Prachi nn Bitartrate 00 325/5) Do 5 MG Oral not exceed Tablet 4gm/day of acetaminop hen. Morphine No Notes: Memoria 6-12 (Same l 07:06: as:MORPhin Markus 00 e Sulfate) Ondansetron No Notes: Isreal adiel 6-12 (Same as: l 07:06: Zofran) [place] 00 MEDICATION WASTE Product Size: 4 mg Product Wasted: ___ mg Sodium No 1,000 mL, Memori a Chloride 6-12 Rate: 125 l 0.154 07:06: ml/hr, Markus MEQ/ML 00 Infuse Injectable over: 8 Solution hr, Route: IV, Dosing Weight 52.727 kg, Total Volume: 1,000, Start date: 10/10/16 2:06:00 CDT, Duration: 30 day, Stop date: 11/09/16 2:05:00 CDT Hydromorpho 2016- No 1 mg, 1 Mem oria ne [...] No 1,000 mL, Memori a Chloride -12 1000 l 0.154 03:54: ml/hr, MEQ/ML 00 Infuse Injectable Over: 1 [...] Chloride 0-12 1000 l 0.154 18:36: ml/hr, [place] MEQ/ML 00 Infuse Injectable Over: 1 Solution hr, Route: IV, 1,000, Drug form: INJ, ONCE, Priority: STAT, Dosing Weight 59.091 kg, Start date: 02/10/16 13:36:00 CDT, Duration: 1 doses or times, Stop date: 02/10/16 13:36:00 CDT Nitrofurant Yes 100 mg = 1 Memoria oin 100 MG 4-15 cap, PO, l Oral 16:05: BID, X 7 [place] Capsule 00 day, # 14 [Macrobid] cap, 0 Refill(s) Potassium Yes 20 mEq = 1 Me moria Chloride 20 4-15 tab, PO, l MEQ 15:54: BID, # 10 [place] Extended 00 tab, 0 Release Refill(s) Tablet [...] Memori a Chloride -15 1,000 l 0.154 14:36: ml/hr, Markus MEQ/ML 00 Infuse Injectable Over: 1 Solution hr, Route: IV, 1,000, Drug form: INJ, ONCE, Priority: STAT, Dosing Weight 47.727 kg, Start date: 08/13/14 9:36:00, Duration: 1 doses or times, Stop date: 08/13/14 9:36:00 Potassium No 40 mEq, Memor ia Chloride -15 Route: PO, l 1.33 MEQ/ML 13:12: Drug form: Markus Oral 00 LIQ, ONCE, Solution Dosing Weight 47.727, kg, Priority: STAT, Start date: 08/13/14 8:12:00, Stop date: 08/13/14 8:12:00 Sodium No 1,000 mL, Memori a Chloride 15 1,000 l 0.154 12:04: ml/hr, [place] MEQ/ML 00 Infuse Injectable Over: 1 Solution hr, Route: IV, 1,000, Drug form: INJ, ONCE, Priority: STAT, Dosing Weight 47.727 kg, Start date: 08/13/14 7:04:00, Duration: 1 doses or times, Stop date: 08/13/14 7:04:00 Saline No Notes: Memoria Flush 0.9% 08-13 Same as: l 12:03: BD Mark[place] 00 Posiflush Sterile tramadol 2013-05 Yes 50 mg = 1 Isreal adiel hydrochlori -09 tab, PO, l de 50 MG 18:14: Q4H, Pain, Her hogan Oral Tablet 00 # 30 tab, 0 Refill(s) Nitrofurant 2013-05 Yes 100 mg = 1 Memoria oin 100 MG 09 cap, PO, l Oral 16:48: BID, # 14 [place] Capsule 00 cap, 0 [Macrobid] Refill(s) Ondansetron 2013-05 Yes Special Mem oria 4 MG 05-09 Instructio l Disintegrat 16:17: ns: Sony espinosa ing Tablet 00 Dissolve [Zofran] tab under tongue Potassium 2013-05 No Notes: Memori a Chloride 20 05-09 (Same as: l MEQ 16:13: K-Dur 20) Mark[place] Extended 00 "Do Not Release Crush" Tablet With food and full glass of water Dilaudid 2013-05 No 0.5 mg, Memori a 09 0.5 mL, l 14:49: Route: [place] 00 IVP, Drug form: INJ, ONCE, Dosing Weight 50.909, kg, Priority: STAT, Start date: 03/09/14 8:49:00, Stop date: 03/09/14 8:49:00 potassium 2013-05 No Notes: Memori a chloride 20 05-09 (Same as: l mEq/100 mL 14:10: KCL) Markus intravenous 00 Infuse no solution faster than 10 mEq/hr if given peripheral ly. Ondansetron 2013-05 No 4 mg, Memor ia 1-09 Route: l 12:33: IVP, ONCE, Dosing Weight 50.909, kg, Priority: STAT, Start date: 03/09/14 6:33:00, Stop date: 03/09/14 6:33:00 Hydromorpho 2013-05 No 0.5 mg, Mem oria ne 05-09 Route: l 12:33: IVP, ONCE, Dosing Weight 50.909, kg, Priority: STAT, Start date: 03/09/14 6:33:00, Stop date: 03/09/14 6:33:00 Saline 2013-05 No Notes: Memoria Flush 0.9% 05-09 (Same as: l 12:33: BD Posiflush) Sodium 2013-05 No 1,000 mL, Memori a Chloride 05-09 Infuse l 0.154 12:33: Over: 1 [place] MEQ/ML 00 hr, Route: Injectable IV, ONCE, Solution Priority: STAT, Dosing Weight 50.909 kg, Start date: 03/09/14 6:33:00, Duration: 1 doses or times, Stop date: 03/09/14 6:33:00 Nitrofurant Yes 100 mg = 1 Memoria oin 100 MG 01-14 cap, PO, l Oral 21:37: BID, # 14 [place] Capsule 00 cap, 0 [Macrobid] Refill(s) Acetaminoph No 1 tab, Isreal adiel en 325 MG / 01-14 Route: PO, l Hydrocodone 20:51: Drug Form: [place] Bitartrate 00 TAB, 5 MG Oral Dosing Tablet Weight [[place] 50.909, 5/325] kg, ONCE, STAT, Start date: 01/14/14 15:51:00, Stop date: 01/14/14 15:51:00 Potassium No Notes: Memori a Chloride 20 01-14 (Same as: l MEQ 16:33: K-Dur 20) [place] Extended 00 "Do Not Release Crush" Tablet With food and full glass of water Macrobid No Notes: Not Mem oria 01-14 Recommende l 16:20: d for Markus 00 patients with CrCl< 50 ml/min With food (Same as:Macroda ntin) Acetaminoph No 2 tab, Isreal adiel en 325 MG / 01-14 Route: PO, l Hydrocodone 13:20: Dosing Herm chelsey Bitartrate 00 Weight 5 MG Oral 50.909, Tablet kg, ONCE, [[place] Start 5325] date: 01/14/14 8:20:00, Stop date: 01/14/14 8:20:00 Acetaminoph Yes 1 tab, PO, Memoria en 325 MG / 16 Q4-6H, l Hydrocodone 05:59: Pain, # 12 [place] Bitartrate 00 tab, 0 5 MG Oral Refill(s) Tablet [[place] 5/325] Hydromorpho No Notes: Isreal adiel ne 16 (Same as: l 05:48: Dilaudid) Potassium No Notes: Memori a Chloride 20 01-14 (Same as: l MEQ 05:45: K-Dur 20) "Do Not Release Crush" Tablet With food and full glass of water Ondansetron No Notes: Isreal adiel 9-16 (Same as: l 03:12: Zofran) Sodium No 1,000 mL, Memori a Chloride 01-14 1000 l 0.154 03:12: ml/hr, MEQ/ML 00 Infuse Injectable Over: 1 [...] Chloride 7-25 1000 l 0.154 16:08: ml/hr, MEQ/ML 00 [...] NE SODIUM 0-04 l 100 MCG 00:00: TABS ALPRAZOLAM 2012-05 Yes 1 po 4 Memor ia 2 MG TABS 0-04 times l 00:00: daily ADDERALL 30 2012-05 Yes 1 po q AM, Memoria MG TABS 0-04 1 po q l 00:00: noon, 1/2 [place] 00 po at 3:00pm VALIUM 10 2012-05 Yes 1 po q hs Mem oria MG TABS 0-04 l 00:00: DEPAKOTE ER 2012-05 Yes 2 tabs po M emoria 500 MG 0-04 q hs l [id number] 00:00: DILAUDID/CL 2012-05 Yes per pain Me moria ONIDINE/BUR 0-04 pump l - 4.0MG/ML, 00:00: Sony n 444.0 00 UG/ML, 5.0 UG/ML ACYCLOVIR 2012-05 Yes 1 3x daily Me moria TAB 400MG 0-04 for herpes l 00:00: flare. LEVOTHYROXI 2012-05 Yes 1 PO Daily [facility] NE SODIUM 0-04 l 100 MCG 00:00: TABS ALPRAZOLAM 2012-05 Yes 1 po 4 Mem[facility] ia 2 MG TABS 0-04 times l 00:00: daily ADDERALL 30 2012-05 Yes 1 po q AM, [facility] MG TABS 0-04 1 po q l 00:00: noon, 05/02 po at 3:00pm DEPAKOTE ER 2012-05 Yes 2 tabs po M emoria 500 MG 0-04 q hs l [id number] 00:00: ACYCLOVIR 2012-05 Yes 1 3x daily [...] [facility] injection, injection, injection, al auto-inject auto-[facility] ertapenem 1 ertapenem 1 [...] Immunizations Ordered Filled Immunization Date Status Comments [facility] e Immunization Name Name Influenza vaccine, Influenza vaccine, 2021-04-29 Completed [facility] quadrivalent, quadrivalent, 11:22:00 [facility] adjuvanted adjuvanted Moderna SARS-CoV-2 2020-12-28 Completed [facility] Vaccination 00:00:00 of Medicine Moderna SARS-CoV-2 2020-12-28 Completed [facility] Vaccination 00:00:00 of Medicine Moderna SARS-CoV-2 2020-12-28 Completed [facility] Vaccination 00:00:00 of Medicine COVID-19, mRNA, COVID-19, mRNA, 2020-12-25 Completed [facility] LNP-S, PF, 100 LNP-S, PF, 100 00:00:00 [facility] l [facility] mcg/0.5 mL dose mcg/0.5 mL dose (Moderna) (Moderna) influenza, influenza, 2020-02-12 Completed [facility] injectable, injectable, 00:00:00 [facility] Gr[facility] p quadrivalent quadrivalent influenza, influenza, 2019-05-08 Completed [facility] injectable, injectable, 14:33:00 [facility] quadrivalent, quadrivalent, preservative free preservative free pneumococcal 2016-10-10 Completed [facility] 23-valent vaccine 22:14:00 Markus Hx influenza 2013-02-01 Completed [facility] vaccine-unspecified 18:41:05 Prachi nn <sup>1</sup> influenza 2013-02-01 Completed [facility] immunization (Flu 18:41:05 Markus Vax) has been administered influenza virus 2013-02-01 Completed [facility] vaccine, 05:00:00 Markus inactivated<sup>2</ sup> zoster recombinant zoster recombinant Unknown Completed [facility] Vital Signs Vital Name Observation Time Observation Value Comments Source HEIGHT 2019-12-13 00:00:00 157.5 cm WEIGHT 2019-12-13 00:00:00 65.318 kg BP Diastolic 2021-10-04 00:00:00 79 mm[Hg] [facility] Height 2021-10-04 00:00:00 62 [in_i] [facility] BMI (Body Mass 2021-10-04 00:00:00 28.5 kg/m2 [facility] 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 Index) [facility] BP Systolic 2021-10-04 00:00:00 113 mm[Hg] [facility] Body Weight 2021-10-04 00:00:00 155.8 [lb_av] [facility] BP Diastolic 2021-09-24 00:00:00 63 mm[Hg] [facility] Height 2021-09-24 00:00:00 59.9 [in_i] [facility] BMI (Body Mass 2021-09-24 00:00:00 30.4 kg/m2 [facility] Medical Index) Group BP Systolic 2021-09-24 00:00:00 88 mm[Hg] [facility] Body Weight 2021-09-24 00:00:00 2480 [oz_av] [facility] BP Diastolic 2021-07-24 00:00:00 71 mm[Hg] [facility] Height 2021-07-24 00:00:00 62 [in_i] [facility] BMI (Body Mass 2021-07-24 00:00:00 28.3 kg/m2 [facility] Medical Index) Group BP Systolic 2021-07-24 00:00:00 100 mm[Hg] [facility] Body Weight 2021-07-24 00:00:00 2480 [oz_av] [facility] BP Diastolic 2021-07-12 00:00:00 89 mm[Hg] [facility] Height 2021-07-12 00:00:00 62 [in_i] [facility] BMI (Body Mass 2021-07-12 00:00:00 30.3 kg/m2 [facility] Medical Index) Group BP Systolic 2021-07-12 00:00:00 125 mm[Hg] [facility] Body Weight 2021-07-12 00:00:00 2652.8 [oz_av] [facility] HEIGHT 2021-07-02 11:00:00 158.8 cm WEIGHT 2021-07-02 11:00:00 72.349 kg HEIGHT 2021-07-01 10:40:00 158.8 cm WEIGHT 2021-07-01 10:40:00 72.576 kg HEIGHT 2021-07-02 11:00:00 158.8 cm WEIGHT 2021-07-02 11:00:00 72.349 kg HEIGHT 2021-07-01 10:40:00 158.8 cm WEIGHT 2021-07-01 10:40:00 72.576 kg BP Diastolic 2021-06-28 00:00:00 93 mm[Hg] [facility] Height 2021-06-28 00:00:00 62 [in_i] [facility] BMI (Body Mass 2021-06-28 00:00:00 30.4 kg/m2 [facility] 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 Index) [facility] BP Systolic 2021-06-28 00:00:00 126 mm[Hg] [facility] Body Weight 2021-06-28 00:00:00 166 [lb_av] [facility] Height 2021-06-24 00:00:00 62 [in_i] [facility] BMI (Body Mass 2021-06-24 00:00:00 28.9 kg/m2 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) [facility] Body Weight 2021-06-24 00:00:00 2528 [oz_av] [facility] HEIGHT 2021-05-03 09:33:00 157.5 cm WEIGHT 2021-05-03 09:33:00 67.132 kg HEIGHT 2021-05-03 09:33:00 157.5 cm WEIGHT 2021-05-03 09:33:00 67.132 kg Height 2021-04-28 00:00:00 62 [in_i] [facility] BMI (Body Mass 2021-04-28 00:00:00 27.8 kg/m2 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) [facility] Body Weight 2021-04-28 00:00:00 2432 [oz_av] [facility] BP Diastolic 2021-04-22 00:00:00 74 mm[Hg] [facility] Height 2021-04-22 00:00:00 62 [in_i] [facility] BMI (Body Mass 2021-04-22 00:00:00 27.9 kg/m2 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) [facility] BP Systolic 2021-04-22 00:00:00 99 mm[Hg] [facility] Body Weight 2021-04-22 00:00:00 2440 [oz_av] [facility] BP Diastolic 2021-03-29 00:00:00 83 mm[Hg] [facility] Height 2021-03-29 00:00:00 62 [in_i] [facility] BMI (Body Mass 2021-03-29 00:00:00 29.3 kg/m2 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 Index) [facility] BP Systolic 2021-03-29 00:00:00 115 mm[Hg] [facility] Body Weight 2021-03-29 00:00:00 160 [lb_av] [facility] Systolic blood 2021-03-12 15:36:00 124 mm[Hg] [facility] pressure Medicine Diastolic blood 2021-03-12 15:36:00 80 mm[Hg] [facility] pressure Medicine Heart rate 2021-03-12 15:36:00 94 /min [facility] Respiratory rate 2021-03-12 15:36:00 18 /min [facility] Body height 2021-03-12 15:36:00 157.5 cm [facility] Body weight 2021-03-12 15:36:00 75.479 kg [facility] BMI 2021-03-12 15:36:00 30.43 kg/m2 [facility] Oxygen saturation in 2021-03-12 15:36:00 90 /min [facility] Arterial blood by [facility] Pulse oximetry BP Diastolic 2021-03-02 00:00:00 76 mm[Hg] [facility] Height 2021-03-02 00:00:00 62 [in_i] [facility] BMI (Body Mass 2021-03-02 00:00:00 28[facility]9 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 BP Systolic 2021-03-02 00:00:00 118 mm[Hg] [facility] Body Weight 2021-03-02 00:00:00 158 [lb_av] [facility] BP Diastolic 2021-02-19 00:00:00 78 mm[Hg] [facility] Height 2021-02-19 00:00:00 62 [in_i] [facility] BMI (Body Mass 2021-02-19 00:00:00 29.1 kg/m2 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) Group BP Systolic 2021-02-19 00:00:00 115 mm[Hg] [facility] Body Weight 2021-02-19 00:00:00 2547.2 [oz_av] 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 BP Diastolic 2021-01-25 00:00:00 96 mm[Hg] [facility] Height 2021-01-25 00:00:00 62 [in_i] [facility] BMI (Body Mass 2021-01-25 00:00:00 29.3 kg/m2 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) [facility] BP Systolic 2021-01-25 00:00:00 129 mm[Hg] [facility] Body Weight 2021-01-25 00:00:00 2561.6 [oz_av] 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 Systolic blood 2021-01-19 19:17:00 102 mm[Hg] [facility] pressure Medicine Diastolic blood 2021-01-19 19:17:00 71 mm[Hg] [facility] pressure Medicine Heart rate 2021-01-19 19:17:00 84 /min [facility] Body temperature 2021-01-19 19:17:00 36.28 [facility] Body height 2021-01-19 19:17:00 157.5 cm [facility] Body weight 2021-01-19 19:17:00 70.308 kg [facility] BMI 2021-01-19 19:17:00 28.35 kg/m2 [facility] Oxygen saturation in 2021-01-19 19:17:00 85 /min [facility] Arterial blood by Medicine Pulse oximetry BP Diastolic 2020-12-28 00:00:00 93 mm[Hg] [facility] Height 2020-12-28 00:00:00 62 [in_i] [facility] BMI (Body Mass 2020-12-28 00:00:00 29.7 kg/m2 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 Index) [facility] BP Systolic 2020-12-28 00:00:00 133 mm[Hg] [facility] Body Weight 2020-12-28 00:00:00 162.2 [lb_av] [facility] BP Diastolic 2020-12-18 00:00:00 71 mm[Hg] [facility] Height 2020-12-18 00:00:00 62 [in_i] [facility] BMI (Body Mass 2020-12-18 00:00:00 29.7 kg/m2 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) Group BP Systolic 2020-12-18 00:00:00 104 mm[Hg] [facility] Body Weight 2020-12-18 00:00:00 2598.4 [oz_av] 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 BP Diastolic 2020-12-08 00:00:00 68 mm[Hg] [facility] Height 2020-12-08 00:00:00 62 [in_i] [facility] BMI (Body Mass 2020-12-08 00:00:00 30.5 kg/m2 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) Group BP Systolic 2020-12-08 00:00:00 95 mm[Hg] [facility] Body Weight 2020-12-08 00:00:00 2668.8 [oz_av] 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 BP Diastolic 2020-11-30 00:00:00 76 mm[Hg] [facility] Height 2020-11-30 00:00:00 62 [in_i] [facility] BMI (Body Mass 2020-11-30 00:00:00 30.2 kg/m2 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) Group BP Systolic 2020-11-30 00:00:00 108 mm[Hg] [facility] Body Weight 2020-11-30 00:00:00 2641.6 [oz_av] 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 BP Diastolic 2020-11-17 00:00:00 64 mm[Hg] [facility] Height 2020-11-17 00:00:00 62 [in_i] [facility] BMI (Body Mass 2020-11-17 00:00:00 30.2 kg/m2 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) Group BP Systolic 2020-11-17 00:00:00 90 mm[Hg] [facility] Body Weight 2020-11-17 00:00:00 2640 [oz_av] [facility] BP Diastolic 2020-10-26 00:00:00 96 mm[Hg] [facility] Height 2020-10-26 00:00:00 62 [in_i] [facility] BMI (Body Mass 2020-10-26 00:00:00 31.2 kg/m2 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) Group BP Systolic 2020-10-26 00:00:00 140 mm[Hg] [facility] Body Weight 2020-10-26 00:00:00 2729.6 [oz_av] 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 BP Diastolic 2020-10-12 00:00:00 91 mm[Hg] [facility] Height 2020-10-12 00:00:00 62 [in_i] [facility] BMI (Body Mass 2020-10-12 00:00:00 30.4 kg/m2 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) Group BP Systolic 2020-10-12 00:00:00 142 mm[Hg] [facility] Body Weight 2020-10-12 00:00:00 2657.6 [oz_av] 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 BMI (Body Mass 2020-08-12 00:00:00 31.6 kg/m2 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) [facility] Body Weight 2020-08-12 00:00:00 2761.6 [oz_av] 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 Height 2020-08-12 00:00:00 62 [in_i] [facility] BP Diastolic 2020-07-31 00:00:00 82 mm[Hg] [facility] Height 2020-07-31 00:00:00 62 [in_i] [facility] BMI (Body Mass 2020-07-31 00:00:00 31.6 kg/m2 [facility] Medical Index) Group BP Systolic 2020-07-31 00:00:00 116 mm[Hg] [facility] Body Weight 2020-07-31 00:00:00 172.6 [lb_av] [facility] BP Diastolic 2020-06-23 00:00:00 97 mm[Hg] [facility] Height 2020-06-23 00:00:00 62 [in_i] [facility] BMI (Body Mass 2020-06-23 00:00:00 28.7 kg/m2 [facility] Medical Index) Group BP Systolic 2020-06-23 00:00:00 142 mm[Hg] [facility] Body Weight 2020-06-23 00:00:00 2512 [oz_av] [facility] BP Diastolic 2020-05-27 00:00:00 71 mm[Hg] [facility] Height 2020-05-27 00:00:00 62 [in_i] [facility] BMI (Body Mass 2020-05-27 00:00:00 27.1 kg/m2 [facility] Medical Index) Group BP Systolic 2020-05-27 00:00:00 105 mm[Hg] [facility] Body Weight 2020-05-27 00:00:00 147.9 [lb_av] [facility] BP Diastolic 2020-05-04 00:00:00 76 mm[Hg] [facility] Height 2020-05-04 00:00:00 62 [in_i] [facility] BMI (Body Mass 2020-05-04 00:00:00 28.4 kg/m2 [facility] Medical Index) Group BP Systolic 2020-05-04 00:00:00 116 mm[Hg] [facility] Body Weight 2020-05-04 00:00:00 2481.6 [oz_av] 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 BP Diastolic 2020-04-02 00:00:00 70 mm[Hg] [facility] Height 2020-04-02 00:00:00 62 [in_i] [facility] BMI (Body Mass 2020-04-02 00:00:00 27.4 kg/m2 [facility] Medical Index) Group BP Systolic 2020-04-02 00:00:00 101 mm[Hg] [facility] Body Weight 2020-04-02 00:00:00 149.7 [lb_av] [facility] BP Diastolic 2020-03-18 00:00:00 75 mm[Hg] [facility] Height 2020-03-18 00:00:00 62 [in_i] [facility] BMI (Body Mass 2020-03-18 00:00:00 27.3 kg/m2 [facility] Medical Index) Group BP Systolic 2020-03-18 00:00:00 124 mm[Hg] [facility] Body Weight 2020-03-18 00:00:00 2384 [oz_av] [facility] BP Diastolic 2020-01-24 00:00:00 83 mm[Hg] [facility] Height 2020-01-24 00:00:00 62 [in_i] [facility] BMI (Body Mass 2020-01-24 00:00:00 27.3 kg/m2 [facility] Medical Index) Group BP Systolic 2020-01-24 00:00:00 118 mm[Hg] [facility] Body Weight 2020-01-24 00:00:00 2384 [oz_av] [facility] BP Diastolic 2020-01-17 00:00:00 71 mm[Hg] [facility] Height 2020-01-17 00:00:00 62 [in_i] [facility] BMI (Body Mass 2020-01-17 00:00:00 27.1 kg/m2 [facility] Medical Index) Group BP Systolic 2020-01-17 00:00:00 107 mm[Hg] [facility] Body Weight 2020-01-17 00:00:00 148.2 [lb_av] [facility] HEIGHT 2019-12-13 00:00:00 157.5 cm WEIGHT 2019-12-13 00:00:00 65.318 kg Body height 2019-12-17 18:52:00 157.5 cm [facility] Body weight 2019-12-17 18:52:00 68.04 kg [facility] BMI 2019-12-17 18:52:00 27.44 kg/m2 [facility] Body height 2019-12-17 18:52:00 157.5 cm [facility] Body weight 2019-12-17 18:52:00 68.04 kg [facility] BMI 2019-12-17 18:52:00 27.44 kg/m2 [facility] Body height 2019-12-17 18:52:00 157.5 cm [facility] Body weight 2019-12-17 18:52:00 68.04 kg [facility] BMI 2019-12-17 18:52:00 27.44 kg/m2 [facility] BP Diastolic 2019-12-03 00:00:00 73 mm[Hg] [facility] Height 2019-12-03 00:00:00 62 [in_i] [facility] BMI (Body Mass 2019-12-03 00:00:00 27.1 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 BP Systolic 2019-12-03 00:00:00 105 mm[Hg] [facility] Body Weight 2019-12-03 00:00:00 148 [lb_av] [facility] BP Diastolic 2019-11-07 00:00:00 73 mm[Hg] [facility] Height 2019-11-07 00:00:00 62 [in_i] [facility] BMI (Body Mass 2019-11-07 00:00:00 27.1 kg/m2 [facility] 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) Group BP Systolic 2019-11-07 00:00:00 105 mm[Hg] [facility] Body Weight 2019-11-07 00:00:00 2369 [oz_av] [facility] BP Diastolic 2019-10-15 00:00:00 94 mm[Hg] [facility] Height 2019-10-15 00:00:00 62 [in_i] [facility] BMI (Body Mass 2019-10-15 00:00:00 27.8 [facility]m2 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 BP Systolic 2019-10-15 00:00:00 135 mm[Hg] [facility] Body Weight 2019-10-15 00:00:00 2432 [oz_av] [facility] BP Diastolic 2019-07-12 00:00:00 77 mm[Hg] [facility] Height 2019-07-12 00:00:00 62 [in_i] [facility] BMI (Body Mass 2019-07-12 00:00:00 27.7 kg/m2 [facility] 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) Group BP Systolic 2019-07-12 00:00:00 101 mm[Hg] [facility] Body Weight 2019-07-12 00:00:00 2425 [oz_av] [facility] Systolic blood 2019-07-11 16:12:00 111 mm[Hg] [facility] pressure Medicine Diastolic blood 2019-07-11 16:12:00 77 mm[Hg] [facility] pressure Medicine Heart rate 2019-07-11 16:12:00 99 [facility] 2019-07-11 16:12:00 36.72 [facility] Body height 2019-07-11 16:12:00 157.5 cm [facility] Body weight 2019-07-11 16:12:00 65.772 kg [facility] BMI 2019-07-11 16:12:00 26.52 kg/m2 [facility] Systolic blood 2019-07-11 16:12:00 111 mm[Hg] [facility] Medicine Diastolic blood 2019-07-11 16:12:00 77 mm[Hg] [facility] pressure Medicine Heart rate 2019-07-11 16:12:00 99 /min [facility] temperature 2019-07-11 16:12:00 36.72 [facility] Body height 2019-07-11 16:12:00 157.5 cm [facility] Body weight 2019-07-11 16:12:00 65.772 kg [facility] BMI 2019-07-11 16:12:00 26.52 kg/m2 [facility] Systolic blood 2019-07-11 16:12:00 111 mm[Hg] [facility] pressure Medicine Diastolic blood 2019-07-11 16:12:00 77 mm[Hg] [facility] Medicine Heart rate 2019-07-11 16:12:00 99 /min [facility] Body temperature 2019-07-11 16:12:00 36.72 [facility] Body height 2019-07-11 16:12:00 157.5 cm [facility] Body weight 2019-07-11 16:12:00 65.772 kg [facility] BMI 2019-07-11 16:12:00 26.52 kg/m2 [facility] Systolic blood 2019-06-19 15:35:00 138 mm[Hg] [facility] pressure Medicine Diastolic blood 2019-06-19 15:35:00 86 mm[Hg] [facility] Medicine Heart rate 2019-06-19 15:35:00 78 /min [facility] Respiratory rate 2019-06-19 15:35:00 16 /min [facility] Body height 2019-06-19 15:35:00 157.5 cm [facility] Body weight 2019-06-19 15:35:00 66.588 kg [facility] BMI 2019-06-19 15:35:00 26.85 kg/m2 [facility] Systolic blood 2019-06-19 16:57:00 127 mm[Hg] [facility] pressure Medicine Diastolic blood 2019-06-19 16:57:00 70 mm[Hg] [facility] Medicine Heart rate 2019-06-19 16:57:00 95 /min [facility] Body temperature 2019-06-19 16:57:00 36.56 [facility] Respiratory rate 2019-06-19 16:57:00 18 /min [facility] Body height 2019-06-19 16:57:00 157.5 cm [facility] Body weight 2019-06-19 16:57:00 66.679 kg [facility] BMI 2019-06-19 16:57:00 26.89 kg/m2 [facility] Systolic blood 2019-06-19 15:35:00 138 mm[Hg] [facility] Medicine Diastolic blood 2019-06-19 15:35:00 86 mm[Hg] [facility] Medicine Heart rate 2019-06-19 15:35:00 78 /min [facility] Respiratory rate 2019-06-19 15:35:00 16 /min [facility] Body height 2019-06-19 15:35:00 157.5 cm [facility] Body weight 2019-06-19 15:35:00 66.588 kg [facility] BMI 2019-06-19 15:35:00 26.85 kg/m2 [facility] Systolic blood 2019-06-19 15:35:00 138 mm[Hg] [facility] Medicine Diastolic blood 2019-06-19 15:35:00 86 mm[Hg] [facility] Medicine Heart rate 2019-06-19 15:35:00 78 /min [facility] Respiratory rate 2019-06-19 15:35:00 16 /min [facility] Body height 2019-06-19 15:35:00 157.5 cm [facility] Body weight 2019-06-19 15:35:00 66.588 kg [facility] BMI 2019-06-19 15:35:00 26.85 kg/m2 [facility] Systolic blood 2019-06-19 16:57:00 127 mm[Hg] [facility] Medicine Diastolic blood 2019-06-19 16:57:00 70 mm[Hg] [facility] Medicine Heart rate 2019-06-19 16:57:00 95 /min [facility] Body temperature 2019-06-19 16:57:00 36.56 [facility] Respiratory rate 2019-06-19 16:57:00 18 /min [facility] Body height 2019-06-19 16:57:00 157.5 cm [facility] Body weight 2019-06-19 16:57:00 66.679 kg [facility] BMI 2019-06-19 16:57:00 26.89 kg/m2 [facility] Systolic blood 2019-06-19 16:57:00 127 mm[Hg] [facility] pressure Medicine Diastolic blood 2019-06-19 16:57:00 70 mm[Hg] [facility] Medicine Heart rate 2019-06-19 16:57:00 95 /min [facility] Body temperature 2019-06-19 16:57:00 36.56 [facility] Respiratory rate 2019-06-19 16:57:00 18 /min [facility] Body height 2019-06-19 16:57:00 157.5 cm [facility] Body weight 2019-06-19 16:57:00 66.679 kg [facility] BMI 2019-06-19 16:57:00 26.89 kg/m2 [facility] Systolic blood 2019-06-12 14:20:00 100 mm[Hg] [facility] pressure Medicine Diastolic blood 2019-06-12 14:20:00 69 mm[Hg] [facility] Medicine Heart rate 2019-06-12 14:20:00 98 /min [facility] Body temperature 2019-06-12 14:20:00 37.11 [facility] Respiratory rate 2019-06-12 14:20:00 16 /min [facility] Body height 2019-06-12 14:20:00 157.5 cm [facility] Body weight 2019-06-12 14:20:00 67.223 kg [facility] BMI 2019-06-12 14:20:00 27.11 kg/m2 [facility] Systolic blood 2019-06-12 14:20:00 100 mm[Hg] [facility] pressure Medicine Diastolic blood 2019-06-12 14:20:00 69 mm[Hg] [facility] pressure Medicine Heart rate 2019-06-12 14:20:00 98 /min [facility] Body temperature 2019-06-12 14:20:00 37.11 [facility] Respiratory rate 2019-06-12 14:20:00 16 /min [facility] Body height 2019-06-12 14:20:00 157.5 cm [facility] Body weight 2019-06-12 14:20:00 67.223 kg [facility] BMI 2019-06-12 14:20:00 27.11 [facility]2 [facility] Systolic blood 2019-06-12 14:20:00 100 mm[Hg] [facility] Medicine Diastolic blood 2019-06-12 14:20:00 69 mm[Hg] [facility] Medicine Heart rate 2019-06-12 14:20:00 98 /min [facility] Body temperature 2019-06-12 14:20:00 37.11 [facility] Respiratory rate 2019-06-12 14:20:00 16 /min [facility] Body height 2019-06-12 14:20:00 157.5 cm [facility] Body weight 2019-06-12 14:20:00 67.223 kg [facility] BMI 2019-06-12 14:20:00 27.11 kg/m2 [facility] BP Diastolic 2019-05-08 00:00:00 81 mm[Hg] [facility] Height 2019-05-08 00:00:00 62 [in_i] [facility] BMI (Body Mass 2019-05-08 00:00:00 27.3 kg/m2 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 BP Systolic 2019-05-08 00:00:00 123 mm[Hg] [facility] Body Weight 2019-05-08 00:00:00 2384 [oz_av] [facility] BP Diastolic 2019-01-29 00:00:00 64 mm[Hg] [facility] Height 2019-01-29 00:00:00 62 [in_i] [facility] BMI (Body Mass 2019-01-29 00:00:00 27.9 kg/m2 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) [facility] BP Systolic 2019-01-29 00:00:00 108 mm[Hg] [facility] Body Weight 2019-01-29 00:00:00 152.3 [lb_av] [facility] BP Diastolic 2019-01-25 00:00:00 71 mm[Hg] [facility] Height 2019-01-25 00:00:00 62 [in_i] [facility] BMI (Body Mass 2019-01-25 00:00:00 28.2 kg/m2 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) [facility] BP Systolic 2019-01-25 00:00:00 91 mm[Hg] [facility] Body Weight 2019-01-25 00:00:00 154.2 [lb_av] [facility] BP Diastolic 2019-01-07 00:00:00 80 mm[Hg] [facility] Height 2019-01-07 00:00:00 62 [in_i] [facility] BMI (Body Mass 2019-01-07 00:00:00 29 kg/m2 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) Group BP Systolic 2019-01-07 00:00:00 109 mm[Hg] [facility] Body Weight 2019-01-07 00:00:00 158.6 [lb_av] [facility] BP Diastolic 2018-12-27 00:00:00 67 mm[Hg] [facility] Height 2018-12-27 00:00:00 62 [in_i] [facility] BMI (Body Mass 2018-12-27 00:00:00 27.9 kg/m2 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) Group BP Systolic 2018-12-27 00:00:00 92 mm[Hg] [facility] Body Weight 2018-12-27 00:00:00 152.3 [lb_av] [facility] Systolic blood 2018-12-18 15:04:00 110 mm[Hg] [facility] pressure Medicine Diastolic blood 2018-12-18 15:04:00 60 mm[Hg] [employer] [facility] Heart rate 2018-12-18 15:04:00 74 /min [facility] Body temperature 2018-12-18 15:04:00 36.67 Marguerite [facility] Respiratory rate 2018-12-18 15:04:00 16 /min [facility] Body height 2018-12-18 15:04:00 157.5 cm [facility] Body weight 2018-12-18 15:04:00 70.67 kg [facility] BMI 2018-12-18 15:04:00 28.50 kg/m2 [facility] Systolic blood 2018-12-18 15:04:00 110 mm[Hg] [facility] Medicine Diastolic blood 2018-12-18 15:04:00 60 mm[Hg] [facility] Medicine Heart rate 2018-12-18 15:04:00 74 /min [facility] Body temperature 2018-12-18 15:04:00 36.67 Marguerite [facility] Respiratory rate 2018-12-18 15:04:00 16 /min [facility] Body height 2018-12-18 15:04:00 157.5 cm [facility] Body weight 2018-12-18 15:04:00 70.67 [facility] BMI 2018-12-18 15:04:00 28.50 kg/m2 [facility] Systolic blood 2018-12-18 15:04:00 110 mm[Hg] [facility] Medicine Diastolic blood 2018-12-18 15:04:00 60 mm[Hg] [facility] Medicine Heart rate 2018-12-18 15:04:00 74 /min [facility] Body temperature 2018-12-18 15:04:00 36.67 Marguerite [facility] Respiratory rate 2018-12-18 15:04:00 16 /min [facility] Body height 2018-12-18 15:04:00 157.5 cm [facility] Body weight 2018-12-18 15:04:00 70.67 kg [facility] BMI 2018-12-18 15:04:00 28.50 kg/m2 [facility] BP Diastolic 2018-12-17 00:00:00 93 mm[Hg] [facility] Height 2018-12-17 00:00:00 62 [in_i] [facility] BMI (Body Mass 2018-12-17 00:00:00 28.3 kg/m2 [facility] Medical Index) Group BP Systolic 2018-12-17 00:00:00 137 mm[Hg] [facility] Body Weight 2018-12-17 00:00:00 2480 [oz_av] [facility] BP Diastolic 2018-12-07 00:00:00 73 mm[Hg] [facility] Height 2018-12-07 00:00:00 62 [in_i] [facility] BMI (Body Mass 2018-12-07 00:00:00 30 kg/m2 [facility] Medical Index) Group BP Systolic 2018-12-07 00:00:00 145 mm[Hg] [facility] Body Weight 2018-12-07 00:00:00 2624 [oz_av] [facility] BP Diastolic 2018-10-17 00:00:00 90 mm[Hg] [facility] Height 2018-10-17 00:00:00 62 [in_i] [facility] BMI (Body Mass 2018-10-17 00:00:00 27.3 kg/m2 [facility] Medical Index) Group BP Systolic 2018-10-17 00:00:00 153 mm[Hg] [facility] Body Weight 2018-10-17 00:00:00 2384 [oz_av] [facility] BP Diastolic 2018-09-17 00:00:00 84 mm[Hg] [facility] Height 2018-09-17 00:00:00 62 [in_i] [facility] BMI (Body Mass 2018-09-17 00:00:00 27.3 kg/m2 [facility] Medical Index) Group BP Systolic 2018-09-17 00:00:00 120 mm[Hg] [facility] Body Weight 2018-09-17 00:00:00 2384 [oz_av] [facility] BP Diastolic 2018-08-29 00:00:00 80 mm[Hg] [facility] Height 2018-08-29 00:00:00 62 [in_i] [facility] BMI (Body Mass 2018-08-29 00:00:00 27.3 kg/m2 [facility] Medical Index) Group BP Systolic 2018-08-29 00:00:00 105 mm[Hg] [facility] Body Weight 2018-08-29 00:00:00 2384 [oz_av] [facility] BP Diastolic 2018-08-15 00:00:00 94 mm[Hg] [facility] Height 2018-08-15 00:00:00 62 [in_i] [facility] BMI (Body Mass 2018-08-15 00:00:00 29.1 kg/m2 [facility] Medical Index) Group BP Systolic 2018-08-15 00:00:00 136 mm[Hg] [facility] Body Weight 2018-08-15 00:00:00 2544 [oz_av] [facility] Sy[facility]olic blood 2021-05-25 20:58:00 140 mm[Hg] [facility] pressure Diastolic blood 2021-05-25 20:58:00 89 mm[Hg] [facility] pressure Heart rate 2021-05-25 20:58:00 89 /min [facility] Body height 2021-05-25 20:58:00 157.5 cm [facility] Body weight 2021-05-25 20:58:00 71.668 kg [facility] BMI 2021-05-25 20:58:00 28.90 kg/m2 [facility] Respiratory rate 2021-05-10 21:40:00 20 /min [facility] Oxygen saturation in 2021-05-10 21:40:00 94 /min [facility] Arterial blood by Pulse oximetry Body temperature 2021-05-10 21:15:00 36.67 Marguerite [facility] Systolic blood 2021-05-03 13:00:00 142 mm[Hg] [facility] Diastolic blood 2021-05-03 13:00:00 97 mm[Hg] [facility] Heart rate 2021-05-03 13:00:00 63 /min [facility] Respiratory rate 2021-05-03 13:00:00 8 /min [facility] Oxygen saturation in 2021-05-03 13:00:00 95 /min [facility] Arterial blood by Medical Ce nter Pulse oximetry Body temperature 2021-05-03 09:33:00 36.61 Marguerite [facility] Body height 2021-05-03 09:33:00 157.5 cm [facility] Body weight 2021-05-03 09:33:00 67.132 kg [facility] BMI 2021-05-03 09:33:00 27.07 kg/m2 [facility] Respitory Rate 2020-08-03 13:45:00 [facility] Systolic (mm Hg) 2020-08-03 13:45:00 [facility] Diastolic (mm Hg) 2020-08-03 13:45:00 [facility] [place] Respitory Rate 2020-08-03 13:30:00 [facility] [place] Systolic (mm Hg) 2020-08-03 13:30:00 [facility] Diastolic (mm Hg) 2020-08-03 13:30:00 [facility] Respitory Rate 2020-08-03 13:15:00 [facility] [place] Systolic (mm Hg) 2020-08-03 13:15:00 [facility] [place] Diastolic (mm Hg) 2020-08-03 13:15:00 [facility] [place] Height 2020-07-31 19:34:00 157.48 cm [facility] Weight 2020-07-31 19:34:00 [facility] Calculated 2020-07-31 19:34:00 [facility] Respitory Rate 2020-05-12 01:00:00 [facility] [place] Systolic (mm Hg) 2020-05-12 01:00:00 [facility] Diastolic (mm Hg) 2020-05-12 01:00:00 [facility] Respitory Rate 2020-05-12 00:45:00 [facility] [place] Respitory Rate 2020-05-11 23:45:00 [facility] [place] Systolic (mm Hg) 2020-05-11 23:45:00 [facility] [place] Diastolic (mm Hg) 2020-05-11 23:45:00 [facility] [place] Systolic (mm Hg) 2020-05-11 23:30:00 [facility] [place] Diastolic (mm Hg) 2020-05-11 23:30:00 [facility] Heart Rate 2020-05-11 16:14:00 [facility] Height 2020-05-07 16:08:00 157.48 cm [facility] Weight 2020-05-07 16:08:00 [facility] BMI Calculated 2020-05-07 16:08:00 [facility] Height 2019-12-17 18:52:00 157.5 cm [facility] [place] Weight 2019-12-17 18:52:00 [facility] [place] Systolic (mm Hg) 2019-11-07 14:12:00 [facility] [place] Diastolic (mm Hg) 2019-11-07 14:12:00 [facility] [place] Heart Rate 2019-11-07 14:12:00 [facility] Height 2019-11-07 14:12:00 158.8 cm [facility] [place] Weight 2019-11-07 14:12:00 [facility] [place] Systolic (mm Hg) 2019-07-11 16:12:00 [facility] [place] Diastolic (mm Hg) 2019-07-11 16:12:00 [facility] Heart Rate 2019-07-11 16:12:00 [facility] [place] Temperature Oral (F) 2019-07-11 16:12:00 36.72 Marguerite [facility] [place] Height 2019-07-11 16:12:00 157.5 cm [facility] Weight 2019-07-11 16:12:00 [facility] [place] Systolic (mm Hg) 2019-06-19 16:57:00 [facility] Diastolic (mm Hg) 2019-06-19 16:57:00 [facility] [place] Heart Rate 2019-06-19 16:57:00 [facility] Temperature Oral (F) 2019-06-19 16:57:00 36.56 [facility] Respitory Rate 2019-06-19 16:57:00 [facility] [place] Height 2019-06-19 16:57:00 157.5 cm [facility] [place] Weight 2019-06-19 16:57:00 [facility] [place] Systolic (mm Hg) 2019-06-19 15:35:00 [facility] Diastolic (mm Hg) 2019-06-19 15:35:00 [facility] Heart Rate 2019-06-19 15:35:00 [facility] Respitory Rate 2019-06-19 15:35:00 [facility] Height 2019-06-19 15:35:00 157.5 cm [facility] Weight 2019-06-19 15:35:00 [facility] [place] Systolic (mm Hg) 2019-06-12 14:20:00 [facility] [place] Diastolic (mm Hg) 2019-06-12 14:20:00 [facility] [place] Heart Rate 2019-06-12 14:20:00 [facility] [place] Temperature Oral (F) 2019-06-12 14:20:00 37.11 Marguerite [facility] [place] Respitory Rate 2019-06-12 14:20:00 [facility] Height 2019-06-12 14:20:00 157.5 cm [facility] Weight 2019-06-12 14:20:00 [facility] Systolic (mm Hg) 2018-12-18 15:04:00 [facility] [place] Diastolic (mm Hg) 2018-12-18 15:04:00 [facility] [place] Heart Rate 2018-12-18 15:04:00 [facility] [place] Temperature Oral (F) 2018-12-18 15:04:00 36.67 Marguer[facility] Respitory Rate 2018-12-18 15:04:00 [facility] Height 2018-12-18 15:04:00 157.5 cm [facility] Weight 2018-12-18 15:04:00 [facility] Temperature Oral (F) 2018-10-16 12:11:00 97.1 F [facility] [place] Heart Rate 2018-10-16 12:11:00 [facility] [place] Respitory Rate 2018-10-16 12:11:00 [facility] [place] Systolic (mm Hg) 2018-10-16 12:11:00 [facility] Diastolic (mm Hg) 2018-10-16 12:11:00 [facility] [place] Height 2018-10-16 01:03:00 [facility] Weight 2018-10-16 01:03:00 [facility] [place] Temperature Oral (F) 2017-02-18 23:13:00 98.9 F [facility] Heart Rate 2017-02-18 23:13:00 [facility] Respitory Rate 2017-02-18 23:13:00 [facility] [place] Diastolic (mm Hg) 2017-02-18 23:13:00 [facility] Systolic (mm Hg) 2017-02-18 23:13:00 [facility] Diastolic (mm Hg) 2017-02-18 21:48:00 [facility] [place] Respitory Rate 2017-02-18 21:48:00 [facility] Systolic (mm Hg) 2017-02-18 21:48:00 [facility] [place] Heart Rate 2017-02-18 21:48:00 [facility] [place] Weight 2017-02-18 20:38:00 [facility] [place] Temperature Oral (F) 2017-02-18 20:38:00 98.9 F [facility] Respitory Rate 2017-02-18 20:38:00 [facility] [place] Heart Rate 2017-02-18 20:38:00 [facility] [place] Systolic (mm Hg) 2017-02-18 20:38:00 [facility] [place] Diastolic (mm Hg) 2017-02-18 20:38:00 [facility] [place] Systolic (mm Hg) 2016-10-12 12:36:00 [facility] Diastolic (mm Hg) 2016-10-12 12:36:00 [facility] [place] Heart Rate 2016-10-12 12:36:00 [facility] Temperature Oral (F) 2016-10-12 12:36:00 98.1 F [facility] [place] Respitory Rate 2016-10-12 12:36:00 [facility] [place] Temperature Oral (F) 2016-10-12 04:32:00 97.7 F [facility] Heart Rate 2016-10-12 04:32:00 [facility] [place] Systolic (mm Hg) 2016-10-12 04:32:00 [facility] Diastolic (mm Hg) 2016-10-12 04:32:00 [facility] Respitory Rate 2016-10-12 04:32:00 [facility] [place] Temperature Oral (F) 2016-10-12 00:11:00 98.2 F [facility] [place] Systolic (mm Hg) 2016-10-12 00:11:00 [facility] [place] Diastolic (mm Hg) 2016-10-12 00:11:00 [facility] Respitory Rate 2016-10-12 00:11:00 [facility] [place] Heart Rate 2016-10-12 00:11:00 [facility] BMI Calculated 2016-10-10 07:28:00 [facility] [place] Weight 2016-10-10 07:28:00 [facility] Height 2016-10-10 07:28:00 157.48 cm [facility] [place] Weight 2016-10-10 03:22:00 [facility] Temperature Oral (F) 2016-02-10 21:38:00 98.2 F [facility] [place] Respitory Rate 2016-02-10 21:38:00 [facility] Heart Rate 2016-02-10 21:38:00 [facility] [place] Systolic (mm Hg) 2016-02-10 21:38:00 [facility] [place] Diastolic (mm Hg) 2016-02-10 21:38:00 [facility] [place] Height 2016-02-10 18:31:00 157.48 cm [facility] [place] Weight 2016-02-10 18:31:00 [facility] [place] BMI Calculated 2016-02-10 18:31:00 [facility] Systolic (mm Hg) 2016-02-10 18:31:00 [facility] [place] Diastolic (mm Hg) 2016-02-10 18:31:00 [facility] [place] Respitory Rate 2016-02-10 18:31:00 [facility] [place] Heart Rate 2016-02-10 18:31:00 [facility] [place] Temperature Oral (F) 2016-02-10 18:31:00 98.4 F [facility] [place] Temperature Oral (F) 2014-08-13 16:57:00 98.1 F [facility] [place] Heart Rate 2014-08-13 16:57:00 [facility] Systolic (mm Hg) 2014-08-13 16:57:00 [facility] [place] Diastolic (mm Hg) 2014-08-13 16:57:00 [facility] [place] Respitory Rate 2014-08-13 16:57:00 [facility] Respitory Rate 2014-08-13 15:44:00 [facility] [place] Heart Rate 2014-08-13 15:44:00 [facility] Systolic (mm Hg) 2014-08-13 15:44:00 [facility] Diastolic (mm Hg) 2014-08-13 15:44:00 [facility] Heart Rate 2014-08-13 14:30:00 [facility] Respitory Rate 2014-08-13 14:30:00 [facility] [place] Systolic (mm Hg) 2014-08-13 14:30:00 [facility] [place] Diastolic (mm Hg) 2014-08-13 14:30:00 [facility] [place] Weight 2014-08-13 11:54:00 [facility] BMI Calculated 2014-08-13 11:54:00 [facility] [place] Height 2014-08-13 11:54:00 170.18 cm [facility] [place] Temperature Oral (F) 2014-08-13 11:54:00 97.4 F [facility] Heart Rate 2014-03-09 17:53:00 [facility] [place] Temperature Oral (F) 2014-03-09 17:53:00 97.9 F [facility] [place] Systolic (mm Hg) 2014-03-09 17:53:00 [facility] [place] Respitory Rate 2014-03-09 17:53:00 [facility] Diastolic (mm Hg) 2014-03-09 17:53:00 [facility] [place] Diastolic (mm Hg) 2014-03-09 15:56:00 [facility] [place] Systolic (mm Hg) 2014-03-09 15:56:00 [facility] [place] Respitory Rate 2014-03-09 15:56:00 [facility] [place] Heart Rate 2014-03-09 15:56:00 [facility] [place] Temperature Oral (F) 2014-03-09 15:56:00 97.9 F [facility] [place] Weight 2014-03-09 11:40:00 [facility] [place] Height 2014-03-09 11:40:00 160.02 cm [facility] BMI Calculated 2014-03-09 11:40:00 [facility] [place] Temperature Oral (F) 2014-03-09 11:40:00 98.1 F [facility] [place] Heart Rate 2014-03-09 11:40:00 [facility] Respitory Rate 2014-03-09 11:40:00 [facility] [place] Diastolic (mm Hg) 2014-03-09 11:40:00 [facility] [place] Systolic (mm Hg) 2014-03-09 11:40:00 [facility] [place] Systolic (mm Hg) 2014-01-14 23:08:00 [facility] Diastolic (mm Hg) 2014-01-14 23:08:00 [facility] Temperature Oral (F) 2014-01-14 23:08:00 98.3 F [facility] [place] Heart Rate 2014-01-14 23:08:00 [facility] [place] Respitory Rate 2014-01-14 23:08:00 [facility] Respitory Rate 2014-01-14 20:30:00 [facility] Systolic (mm Hg) 2014-01-14 20:30:00 [facility] Diastolic (mm Hg) 2014-01-14 20:30:00 [facility] Heart Rate 2014-01-14 20:30:00 [facility] Systolic (mm Hg) 2014-01-14 16:36:00 [facility] Respitory Rate 2014-01-14 16:36:00 [facility] [place] Diastolic (mm Hg) 2014-01-14 16:36:00 [facility] Heart Rate 2014-01-14 16:36:00 [facility] [place] Temperature Oral (F) 2014-01-14 13:03:00 99.1 F [facility] Height 2014-01-14 13:03:00 157.48 cm [facility] Weight 2014-01-14 13:03:00 [facility] [place] BMI Calculated 2014-01-14 13:03:00 [facility] [place] Systolic (mm Hg) 2014-01-14 07:25:00 [facility] [place] Diastolic (mm Hg) 2014-01-14 07:25:00 [facility] [place] Respitory Rate 2014-01-14 07:25:00 [facility] [place] Heart Rate 2014-01-14 07:25:00 [facility] Temperature Oral (F) 2014-01-14 07:25:00 98.5 F [facility] Heart Rate 2014-01-14 03:04:00 [facility] Respitory Rate 2014-01-14 03:04:00 [facility] [place] Temperature Oral (F) 2014-01-14 03:04:00 98.8 F [facility] [place] Diastolic (mm Hg) 2014-01-14 03:04:00 [facility] Systolic (mm Hg) 2014-01-14 03:04:00 [facility] [place] Weight 2014-01-14 03:04:00 [facility] Temperature Oral (F) 2013-11-22 16:34:00 98.6 F [facility] Heart Rate 2013-11-22 16:34:00 [facility] [place] Systolic (mm Hg) 2013-11-22 16:34:00 [facility] [place] Respitory Rate 2013-11-22 16:34:00 [facility] Diastolic (mm Hg) 2013-11-22 16:34:00 [facility] [place] BMI Calculated 2013-11-22 15:46:00 [facility] Height 2013-11-22 15:46:00 157.48 cm [facility] Weight 2013-11-22 15:46:00 [facility] Respitory Rate 2013-11-22 15:46:00 [facility] Heart Rate 2013-11-22 15:46:00 [facility] Temperature Oral (F) 2013-11-22 15:46:00 98.1 F [facility] Systolic (mm Hg) 2013-11-22 15:46:00 [facility] Diastolic (mm Hg) 2013-11-22 15:46:00 [facility] Weight 2013-08-05 15:21:09 [facility] Temperature Oral (F) 2013-08-05 15:21:09 97.7 F [facility] Systolic (mm Hg) 2013-08-05 15:21:09 [facility] Diastolic (mm Hg) 2013-08-05 15:21:09 [facility] [place] Heart Rate 2013-08-05 15:21:09 [facility] Respitory Rate 2013-08-05 15:21:09 [facility] [place] Height 2013-02-01 15:27:40 [facility] Weight 2013-02-01 15:27:40 [facility] [place] Temperature Oral (F) 2013-02-01 15:27:40 97.5 F [facility] [place] Heart Rate 2013-02-01 15:27:40 [facility] [place] Systolic (mm Hg) 2013-02-01 15:27:40 [facility] Diastolic (mm Hg) 2013-02-01 15:27:40 [facility] [place] Respitory Rate 2013-02-01 15:27:40 Tom Torres Procedures Procedure Date / Time Performing Clinician Source Performed MAMMO, screening, digital, 2021-09-24 00:00:00 [facility] LDCT, chest, for lung 2021-09-24 00:00:00 [facility] 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 Medical cancer screening Group XR, femur, 2 or more view 2021-07-24 00:00:00 [facility] DEXA 2021-07-12 00:00:00 [facility] ID AN ELECTIVE 2021-05-10 15:58:52 Samuel Hutchison [facility] ENDOTRACHEAL AIRWAY B REPAIR, HERNIA, INCISIONAL 2021-05-10 15:40:00 [facility] OR VENTRAL E. POC GLUCOSE 2021-05-10 15:26:00 [facility] E. ABO AND RH CONFIRMATION 2021-05-10 14:39:00 Meron Becerra [facility] ECG PRE/POST OP 2021-05-06 17:50:26 Meron Becerra [facility] ESTIMATED GFR 2021-05-06 [facility]:44[facility]ALITAT[facility] 2021-05-06 17:44:00 [facility] RT-PCR HC COMPLETE BLD COUNT 2021-05-06 17:44:00 [facility] W/AUTO DIFF COMPREHENSIVE METABOLIC 2021-05-06 17:44:00 OtisMeron clement [facility] PANEL TYPE AND SCREEN 2021-05-06 17:44:00 [facility] HEMOGLOBIN A1C 2021-05-06 17:44:00 [facility] MR LOWER EXTREMITY JOINT 2021-05-04 08:46:00 Elly Dodson [facility] ONLY WITHOUT IV CONTRAST [facility] RIGHT IR PICC LINE PLACEMENT 2021-05-03 12:11:[address] [facility] OLDER THAN [facility] COMPREHENSIVE METABOLIC 2021-01-19 21:00[facility]FF WITH 2021-01-19 21:00:00 Jerichode [facility] URINALYSIS AUTO W/SCOPE 2021-01-19 21:00:00 Jerichode [facility] CULTURE, URINE/SENSITIVITY 2021-01-19 21:00:00 John [facility] ON ALL Medicine MR PELVIS WITH & WITHOUT 2020-11-20 11:45:00 April Mock [facility] CONTRAST [facility] MR ABDOMEN WITH & WITHOUT 2020-11-20 11:45:00 April Mock [facility] CONTRAST [facility] Knee Surgery 2020-08-03 00:00:00 [facility]anna [facility]as [facility] Procedure on Knee 2020-05-11 00:00:00 [facility] Nerve Block 2020-03-03 00:00:00 [facility] Colonoscopy 2020-01-07 00:00:00 [facility] MRI, knee, w/o contrast 2019-11-19 00:00:00 Mamadou [facility] US, doppler, venous 2019-10-15 00:00:00 [facility]hele [facility] XR, knee, 3 view 2019-10-15 00:00:00 Janna Chen edical Group unlisted imaging order 2018-12-27 00:00:00 [facility] Clostridium difficile 2018-10-16 00:00:00 Tom Torres Toxin Assay Abdomen & Pelvis W 2018-10-15 00:00:00 [facility] Contrast Abdomen Acute Series 2018-07-18 00:00:00 Alejandra Aparicio smoking/tobacco cessation, 2013-02-01 15:27:40 M benito Aparicio patient education and counseling vaginal Pap smear results 2012-01-30 16:10:03 W[facility] morial [facility] Hysterectomy 2006-05-01 00:00:00 [facility] Cholecystectomy [facility] Appendectomy [facility] Nasal operation [facility] Arthroscopy of ankle [facility]<sup>1</sup> Colon operation [facility] Hysterectomy [facility] section [facility] n Large Intestine Excision [facility]olecyst[facility] Caesarean Section [facility] Total Hysterectomy [facility] Epi sc[facility] Plan of Care Planned Planned Details Comments Source Activity Date Future 2030-01-08 Screening for malignant neoplasm [facility] Scheduled Test 00:00:00 of colon (procedure) [code = Medical [id number]] [facility] Future 2030-01-08 Screening for malignant neoplasm [facility] Scheduled Test 00:00:00 of colon (procedure) [code = Medical [id number]] [facility] Diagnostic Test 2021-09-24 CBC w/ auto diff [code = CBC w/ [facility] Pending 00:00:00 auto diff] Medical Group Diagnostic Test 2021-09-24 CMP, serum or plasma [code = CMP, [facility] Pending 00:00:00 serum or plasma] [facility] Group Diagnostic Test 2021-09-24 lipid panel, serum [code = lipid [facility] Pending 00:00:00 panel, serum] [facility] Group Diagnostic Test 2021-09-24 HbA1c (hemoglobin A1c), blood [facility] Pending 00:00:00 [code = HbA1c (hemoglobin A1c), Medical blood] Group Diagnostic Test 2021-09-24 hepatitis C virus Ab, serum [code [facility] Pending 00:00:00 = hepatitis C virus Ab, serum] Medical Group Diagnostic Test 2021-09-24 urinalysis, reflex culture [code = [facility] Pending 00:00:00 urinalysis, reflex culture] Medical Group Diagnostic Test 2021-09-24 nicotine, quantitative, serum or [facility] Pending 00:00:00 plasma [code = nicotine, Med ical quantitative, serum or plasma] Group Future 2021-09-10 Hepatitis C screening (procedure) [facility] Scheduled Test 18:31:52 [code = [id number]] [facility] Future 2021-09-10 Screening for malignant neoplasm [facility] Scheduled Test 18:31:52 of cervix (procedure) [code = [facility] [id number]] Future 2021-09-10 COVID-19 VACCINE (2 - [facility] Scheduled Test 18:31:52 3-dose series) [code = COVID-19 Hospital VACCINE (2 - Moderna 3-dose series)] Future 2021-09-10 INFLUENZA VACCINE [code = [facility] Scheduled Test 18:31:52 INFLUENZA VACCINE] [facility] 2021-09-10 Hepatitis C screening (procedure) [facility] Scheduled Test 18:31:52 [code = [id number]] [facility] 2021-09-10 Screening for malignant neoplasm [facility] Scheduled Test 18:31:52 of cervix (procedure) [code = Hospital [id number]] Future 2021-09-10 COVID-19 VACCINE (2 - Moderna [facility] Scheduled Test 18:31:52 3-dose series) [code = COVID-19 Hospital VACCINE (2 - Moderna 3-dose series)] Future 2021-09-10 INFLUENZA VACCINE [code = Me [facility] Scheduled Test 18:31:52 INFLUENZA VACCINE] [facility] 2021-06-09 Hepatitis C screening (procedure) [facility] Scheduled Test 07:04:40 [code = [id number]] [facility] 2021-06-09 Screening for malignant neoplasm [facility] Scheduled Test 07:04:40 of cervix (procedure) [code = Hospital [id number]] Future 2021-06-09 INFLUENZA VACCINE [code = [facility] Scheduled Test 07:04:40 INFLUENZA VACCINE] [facility] 2021-06-09 COVID-19 VACCINE (3 - Booster) [facility] Scheduled Test 07:04:40 [code = COVID-19 VACCINE (3 - Hospital Booster)] Future 2021-05-31 Hepatitis C screening (procedure) [facility] Scheduled Test 15:06:03 [code = [id number]] [facility] 2021-05-31 Screening for malignant neoplasm [facility] Scheduled Test 15:06:03 of cervix (procedure) [code = Hospital [id number]] Future 2021-05-31 INFLUENZA VACCINE [code = [facility] Scheduled Test 15:06:03 INFLUENZA VACCINE] [facility] 2021-05-31 COVID-19 VACCINE (3 - Booster) [facility] Scheduled Test 15:06:03 [code = COVID-19 VACCINE (3 - Hospital Booster)] Future 2021-05-01 DEPRESSION SCREENING (12+) [code = [facility] Scheduled Test 00:00:00 DEPRESSION SCREENING (12+)] [facility] Future 2021-05-01 DEPRESSION SCREENING (12+) [code = [facility] Scheduled Test 00:00:00 DEPRESSION SCREENING (12+)] [facility] Future 2021-03-12 Screening for malignant neoplasm [facility] Scheduled Test 13:58:55 of breast (procedure) [code = [facility] [id number]] Medicine Future 2021-03-12 Pneumococcal Combined (1 of 2 - [facility] Scheduled Test 13:58:55 PPSV23) [code = Pneumococcal [facility] Combined (1 of 2 - PPSV23)] Medicine Future 2021-03-12 TETANUS SHOT (ADULT) [code = [facility] Scheduled Test 13:58:55 TETANUS SHOT (ADULT)] [facility] Future 2021-03-12 Hepatitis C screening (procedure) [facility] Scheduled Test 13:58:55 [code = [id number]] [facility] Future 2021-03-12 Human immunodeficiency virus [facility] Scheduled Test 13:58:55 screening (procedure) [code = [facility] [id number]] [facility] Future 2021-03-12 Screening for malignant neoplasm [facility] Scheduled Test 13:58:55 of cervix (procedure) [code = [facility] [id number]] [facility] Future 2021-03-12 MEDICARE AWV (Initial) [code = [facility] Scheduled Test 13:58:55 MEDICARE AWV (Initial)] [facility] Future 2021-03-12 BMI FOLLOW UP PLAN [code = BMI [facility] Scheduled Test 13:58:55 FOLLOW UP PLAN] [facility] Future 2021-03-12 FLU VACCINE > 6 MONTHS [code = FLU [facility] Scheduled Test 13:58:55 VACCINE > 6 MONTHS] [facility] 2021-[facility]-12 COVID-19 Vaccine (2 - Moderna [facility] Scheduled Test 13:58:55 2-dose series) [code = COVID-19 [place] of Vaccine (2 - Moderna 2-dose Medicine series)] Future 2021-03-12 ZOSTER VACCINE (1 of 2) [code = [facility] Scheduled Test 13:58:55 ZOSTER VACCINE (1 of 2)] [facility]-12 Screening for malignant neoplasm [facility] Scheduled Test 13:58:55 of colon (procedure) [code = [facility] [id number]] Medicine Future 2021-03-12 CULTURE, URINE/SENSITIVITY ON ALL Ordered : [facility] Scheduled Test 09:53:03 [code = 00399-8] 03/12/2021 [facility] Future 2021-03-12 URINALYSIS AUTO W/SCOPE [code = Ordered: [facility] Scheduled Test 09:52:45 77583-7] 03/12/2021 [facility] Future 2021-01-25 COVID-19 VACCINE (2 - Moderna [facility] Scheduled Test 00:00:00 2-dose series) [code = COVID-19 Medical VACCINE (2 - Moderna 2-dose Center series)] Future 2021-01-25 COVID-19 VACCINE (2 - Moderna [facility] Scheduled Test 00:00:00 2-dose series) [code = COVID-19 Medical VACCINE (2 - Moderna 2-dose Center series)] Future 2021-01-20 Screening for malignant neoplasm [facility] Scheduled Test 12:19:04 of breast (procedure) [code = [facility] [id number]] [facility] Future 2021-01-20 TETANUS SHOT (ADULT) [code = [facility] Scheduled Test 12:19:04 TETANUS SHOT (ADULT)] [facility] Future 2021-01-20 Hepatitis C screening (procedure) [facility] Scheduled Test 12:19:04 [code = [id number]] [facility] Future 2021-01-20 Human immunodeficiency virus [facility] Scheduled Test 12:19:04 screening (procedure) [code = [facility] [id number]] [facility] Future 2021-01-20 Screening for malignant neoplasm [facility] Scheduled Test 12:19:04 of cervix (procedure) [code = [facility] [id number]] [facility] Future 2021-01-20 MEDICARE AWV (Initial) [code = [facility] Scheduled Test 12:19:04 MEDICARE AWV (Initial)] [facility] Future 2021-01-20 BMI FOLLOW UP PLAN [code = BMI [facility] Scheduled Test 12:19:04 FOLLOW UP PLAN] [facility] Future 2021-01-20 FLU VACCINE > 6 MONTHS [code = FLU [facility] Scheduled Test 12:19:04 VACCINE > 6 MONTHS] [facility] Future 2021-01-20 COVID-19 Vaccine (2 - Moderna [facility] Scheduled Test 12:19:04 2-dose series) [code = COVID-19 College of Vaccine (2 - Moderna 2-dose Medicine series)] Future 2021-01-20 ZOSTER VACCINE (1 of 2) [code = [facility] Scheduled Test 12:19:04 ZOSTER VACCINE (1 of 2)] [facility] Future 2021-01-20 Screening for malignant neoplasm [facility] Scheduled Test 12:19:04 of colon (procedure) [code = [facility] [id number]] Medicine Future 2021-01-20 Screening for malignant neoplasm [facility] Scheduled Test 12:19:04 of breast (procedure) [code = [facility] [id number]] [facility] Future 2021-01-20 TETANUS SHOT (ADULT) [code = [facility] Scheduled Test 12:19:04 TETANUS SHOT (ADULT)] [facility] Future 2021-01-20 Hepatitis C screening (procedure) [facility] Scheduled Test 12:19:04 [code = [id number]] [facility] Future 2021-01-20 Human immunodeficiency virus [facility] Scheduled Test 12:19:04 screening (procedure) [code = [facility] [id number]] [facility] Future 2021-01-20 Screening for malignant neoplasm [facility] Scheduled Test 12:19:04 of cervix (procedure) [code = [facility] [id number]] [facility] Future 2021-01-20 MEDICARE AWV (Initial) [code = [facility] Scheduled Test 12:19:04 MEDICARE AWV (Initial)] [facility] Future 2021-01-20 BMI FOLLOW UP PLAN [code = BMI [facility] Scheduled Test 12:19:04 FOLLOW UP PLAN] [facility] Future 2021-01-20 FLU VACCINE > 6 MONTHS [code = FLU [facility] Scheduled Test 12:19:04 VACCINE > 6 MONTHS] [facility] Future 2021-01-20 COVID-19 Vaccine (2 - Moderna [facility] Scheduled Test 12:19:04 2-dose series) [code = COVID-19 [facility] of Vaccine (2 - Moderna 2-dose Medicine series)] Future 2021-01-20 ZOSTER VACCINE (1 of 2) [code = [facility] Scheduled Test 12:19:04 ZOSTER VACCINE (1 of 2)] [facility] Future 2021-01-20 Screening for malignant neoplasm [facility] Scheduled Test 12:19:04 of colon (procedure) [code = [facility] [id number]] Medicine Future 2021-01-19 CULTURE, URINE/SENSITIVITY ON ALL [facility] Scheduled Test 14:59:42 [code = 50905-3] [facility] Future 2021-01-19 CULTURE, URINE/SENSITIVITY ON ALL [facility] Scheduled Test 14:59:42 [code = 38792-8] [facility] Future 2020-12-30 INFLUENZA VACCINE (#1) [code = [facility] Scheduled Test 00:00:00 INFLUENZA VACCINE (#1)] [facility] Future 2020-12-30 INFLUENZA VACCINE (#1) [code = [facility] Scheduled Test 00:00:00 INFLUENZA VACCINE (#1)] [facility] Future 2016-09-13 Lipid panel (procedure) [code = [facility] Scheduled Test 00:00:00 [id number]] [facility] 2016-09-13 Lipid panel (procedure) [code = [facility] Scheduled Test 00:00:00 [id number]] [facility] 1992-09-13 Screening for malignant neoplasm [facility] Scheduled Test 00:00:00 of cervix (procedure) [code = Medical [id number]] [facility] 1992-09-13 Screening for malignant neoplasm [facility] Scheduled Test 00:00:00 of cervix (procedure) [code = Medical 490234850] [facility] 1990-09-13 DTAP/TDAP/TD VACCINES (1 - Tdap) [facility] Scheduled Test 00:00:00 [code = DTAP/TDAP/TD VACCINES (1 - Medical Tdap)] [facility] 1990-09-13 DTAP/TDAP/TD VACCINES (1 - Tdap) [facility] Scheduled Test 00:00:00 [code = DTAP/TDAP/TD VACCINES (1 - Medical Tdap)] [facility] 1989-09-13 HEPATITIS C SCREENING [code = [facility] Scheduled Test 00:00:00 HEPATITIS C SCREENING] [facility] Future 1989-09-13 HEPATITIS C SCREENING [code = [facility] Scheduled Test 00:00:00 HEPATITIS C SCREENING] [facility] Future 1977-09-13 PNEUMOCOCCAL VACCINE 0-64 YRS ([address] [facility] Scheduled Test 00:00:00 of 2 - PPSV23) [code = Med ica PNEUMOCOCCAL VACCINE 0-64 YRS (1 Center of 2 - PPSV23)] Future 1977-09-13 PNEUMOCOCCAL VACCINE 0-64 YRS ([address] [facility] Scheduled Test 00:00:00 of 2 - PPSV23) [code = Med ical PNEUMOCOCCAL VACCINE 0-64 YRS (1 Center of 2 - PPSV23)] Future MAMMOGRAM ANNUAL [code = MAMMOGRAM [facility] Scheduled Test ANNUAL] [facility] Future MEDICARE AWV [code = MEDICARE AWV] [facility] Scheduled Test [facility] Future TETANUS SHOT (ADULT) [code = [facility] Scheduled Test TETANUS SHOT (ADULT)] [facility] Future BMI FOLLOW UP PLAN [code = BMI [facility] Scheduled Test FOLLOW UP PLAN] [facility] Future HIV SCREENING [code = HIV [facility] Scheduled Test SCREENING] [facility] Future CERVICAL CANCER SCREENING 4 YEAR [facility] Scheduled Test FOLLOW UP [code = CERVICAL CANCER [place] of SCREENING 4 YEAR FOLLOW UP] [facility] Future FLU VACCINE > 6 MONTHS [code = FLU [facility] Scheduled Test VACCINE > 6 MONTHS] [facility] Future CBC W/AUTO DIFF WITH PLATELETS Ordered: [facility] Scheduled Test [code = 38225-9] 06/12/2019 [facility] Future CELIAC DISEASE PANEL [code = Ordered: [facility] Scheduled Test 81561-3] 06/12/2019 [facility] Future VITAMIN B12 [code = 2132-9] Ordered: [facility] Scheduled Test 06/12/2019 [facility] Future VITAMIN D 25 HYDROXY [code = Ordered: [facility] Scheduled Test 1988-] 06/12/2019 [facility] Future CALCIUM [code = 42514-2] [facility] 06/12/2019 [facility] Future COMPREHENSIVE METABOLIC PANEL Ordered: [facility] Scheduled Test [code = 85922-1] 06/12/2019 [facility] Future C-REACTIVE PROTEIN [code = 1988-5] Ordere d: [facility] Scheduled Test 06/12/2019 [facility] Future MAGNESIUM [code = 45446-8] Ordered: [facility] Scheduled Test 06/12/2019 [facility] Future IRON, TIBC AND FERRITIN PANEL Ordered: [facility] Scheduled Test [code = NOCPT] 06/12/2019 [facility] Future CLOSTRIDIUM DIFFICILE TOXIN/GDH Ordered: [facility] Scheduled Test WITH REFLEX TO PCR [code = 06/12/2019 [facility] 89976-3] [facility] Future STELARA(R)USTEKINUMAB [code = Ordered: [facility] Scheduled Test NOCPT] 06/12/2019 [facility] Future MAMMOGRAM ANNUAL [code = MAMMOGRAM [facility] Scheduled Test ANNUAL] [facility] Future TETANUS SHOT (ADULT) [code = [facility] Scheduled Test TETANUS SHOT (ADULT)] [facility] BMI FOLLOW UP PLAN [code = BMI [facility] Scheduled Test FOLLOW UP PLAN] [facility] Future HIV SCREENING [code = HIV [facility] Scheduled Test SCREENING] [facility] Future CERVICAL CANCER SCREENING 4 YEAR [facility] Scheduled Test FOLLOW UP [code = CERVICAL CANCER College of SCREENING 4 YEAR FOLLOW UP] [facility] Future MEDICARE AWV (Initial) [code = [facility] Scheduled Test MEDICARE AWV (Initial)] [facility] Future CLOSTRIDIUM DIFFICILE TOXIN/GDH Ordered: [facility] Scheduled Test WITH REFLEX TO PCR [code = 06/19/2019 [facility] 46765-5] [facility] Future CULTURE, STOOL [code = 625-4] Ordered: [facility] Scheduled Test 06/19/2019 [facility] Future CALPROTECTIN, FECAL [code = Ordered: [facility] Scheduled Test 14147-3] 06/19/2019 [facility] Future MAMMOGRAM ANNUAL [code = MAMMOGRAM [facility] Scheduled Test ANNUAL] [facility] Future TETANUS SHOT (ADULT) [code = [facility] Scheduled Test TETANUS SHOT (ADULT)] Ronny [facility] Future BMI FOLLOW UP PLAN [code = BMI [facility] Scheduled Test FOLLOW UP PLAN] [facility] Future HIV SCREENING [code = HIV [facility] Scheduled Test SCREENING] [facility] Future CERVICAL CANCER SCREENING 4 YEAR [facility] Scheduled Test FOLLOW UP [code = CERVICAL CANCER [facility] of SCREENING 4 YEAR FOLLOW UP] [facility] Future MEDICARE AWV (Initial) [code = [facility] Scheduled Test MEDICARE AWV (Initial)] [facility] Future MAMMOGRAM ANNUAL [code = MAMMOGRAM [facility] Scheduled Test ANNUAL] [facility] Future TETANUS SHOT (ADULT) [code = [facility] Scheduled Test TETANUS SHOT (ADULT)] Ronny [facility] Future BMI FOLLOW UP PLAN [code = BMI [facility] Scheduled Test FOLLOW UP PLAN] [facility] Future HIV SCREENING [code = HIV [facility] Scheduled Test SCREENING] [facility] Future CERVICAL CANCER SCREENING 4 YEAR [facility] Scheduled Test FOLLOW UP [code = CERVICAL CANCER [facility] of SCREENING 3 YEAR FOLLOW UP] [facility] Future MEDICARE AWV (Initial) [code = [facility] Scheduled Test MEDICARE AWV (Initial)] [facility] Future ID LO FLEX L1-BELOW L5 PRE OTS Ordered: [facility] Scheduled Test [code = L0625] 07/11/2019 [facility] Future MAMMOGRAM ANNUAL [code = MAMMOGRAM [facility] Scheduled Test ANNUAL] [facility] Future TETANUS SHOT (ADULT) [code = [facility] Scheduled Test TETANUS SHOT (ADULT)] Ronny [facility] Future BMI FOLLOW UP PLAN [code = BMI [facility] Scheduled Test FOLLOW UP PLAN] [facility] Future HIV SCREENING [code = HIV [facility] Scheduled Test SCREENING] [facility] Future CERVICAL CANCER SCREENING 3 YEAR [facility] Scheduled Test FOLLOW UP [code = CERVICAL CANCER [facility] of SCREENING 3 YEAR FOLLOW UP] [facility] Future MEDICARE AWV (Initial) [code = [facility] Scheduled Test MEDICARE AWV (Initial)] [facility] Future ORT - XR KNEE BILAT 4V (CHARGE Ordered: [facility] Scheduled Test ONLY) [code = 34708] 12/17/2019 [facility] Future MAMMOGRAM ANNUAL [code = MAMMOGRAM [facility] Scheduled Test ANNUAL] [facility] Future TETANUS SHOT (ADULT) [code = [facility] Scheduled Test TETANUS SHOT (ADULT)] Ronny [facility] Future HIV SCREENING [code = HIV [facility] Scheduled Test SCREENING] [facility] Future CERVICAL CANCER SCREENING 4 YEAR [facility] Scheduled Test FOLLOW UP [code = CERVICAL CANCER College of SCREENING 3 YEAR FOLLOW UP] [facility] MEDICARE AWV (Initial) [code = [facility] Scheduled Test MEDICARE AWV (Initial)] [facility] Future FLU VACCINE > 6 MONTHS [code = FLU [facility] Scheduled Test VACCINE > 6 MONTHS] [facility] Future BMI FOLLOW UP PLAN [code = BMI [facility] Scheduled Test FOLLOW UP PLAN] [facility] Future ZOSTER VACCINE (1 of 2) [code = [facility] Scheduled Test ZOSTER VACCINE (1 of 2)] [facility] Future Upcoming [facility] Scheduled Test EncountersDateTypeSpecialtyCare [place] FihiCdohkizeqkq06/08/2019Office VisitEndocrinologRichardson Nobles MD[address], [address] [place] [address] [phone] (Fax)Health MaintenanceDue DateLast DoneCommentsMAMMOGRAM [id number] 1971MEDICARE AWV1971TETANUS SHOT (ADULT)09/13/1986BMI FOLLOW UP PLAN09/13/1989HIV SIQBKBAMJ84/16/1990CERVICAL CANCER SCREENING 3 YEAR FOLLOW UP09/13/1992FLU VACCINE > 6 [id number]/29/2018documented as of this encounter [code = Upcoming EncountersDateTypeSpecialtyCare DarmCxikpcevxda58/08/2019Office VisitRichardson Knapp MD[address] [facility], [address] [place] [address] [phone] (Fax)Health MaintenanceDue DateLast DoneCommentsMAMMOGRAM [id number] 1971MEDICARE AWV1971TETANUS SHOT (ADULT)09/13/1986BMI FOLLOW UP PLAN09/13/1989HIV CCTEHQGBE21/16/1990CERVICAL CANCER SCREENING 3 YEAR FOLLOW UP09/13/1992FLU VACCINE > 6 [id number]/29/2018documented as of this encounter] Future FLU VACCINE > 6 MONTHS [code = FLU [facility] Scheduled Test VACCINE > 6 MONTHS] [facility] Future MEDICARE AWV (Initial) [code = [facility] Scheduled Test MEDICARE AWV (Initial)] [facility] Future Screening for malignant neoplasm [facility] Scheduled Test of breast (procedure) [code = [place] 307855537] Future CERVICAL CANCER SCREENING 3 YEAR [facility] Scheduled Test FOLLOW UP [code = CERVICAL CANCER [place] SCREENING 4 YEAR FOLLOW UP] Future Screening for malignant neoplasm [facility] Scheduled Test of cervix (procedure) [code = [facility] 784365523] Future DTaP,Tdap,and Td Vaccines (1 - [facility] Scheduled Test Tdap) [code = DTaP,Tdap,and Td [facility] Vaccines (1 - Tdap)] Future HIV SCREENING [...] Test of colon (procedure) [code = [facility] 413621722] Future Depression Screening [code = [facility] Scheduled Test Depression Screening] [facility] Future BMI FOLLOW UP PLAN [code = BMI [facility] Scheduled Test FOLLOW UP PLAN] [place] Future CT ABD/PELVIS ENTEROGRAPHY W [code [facility] Scheduled Test = 86852-4] [facility] Future INFLUENZA VACCINE (#1) [code = [facility] Scheduled Test INFLUENZA VACCINE (#1)] [facility] Future ORT - XR KNEE BILAT 4V (CHARGE [facility] Scheduled Test ONLY) [code = 46701] Prachi [facility] Future FLU VACCINE > 6 MONTHS [code = FLU [facility] Scheduled Test VACCINE > 6 MONTHS] [facility] Future ID LO FLEX L1-BELOW L5 PRE OTS [facility] Scheduled Test [code = L0625] [place] Future CLOSTRIDIUM DIFFICILE TOXIN/GDH [facility] Scheduled Test WITH REFLEX TO PCR [code = [facility] 18783-5] Future CULTURE, STOOL [code = 625-4] [facility] Scheduled Test [place] Future CALPROTECTIN, FECAL [code = [facility] Scheduled Test 23847-2] [facility] Future CBC W/AUTO DIFF WITH PLATELETS [facility] Scheduled Test [code = 91546-7] [place] Future CELIAC DISEASE PANEL [code = [facility] Scheduled Test 15472-5] [place] Future VITAMIN B12 [code = 2132-9] [facility] Scheduled Test [facility] Future VITAMIN D 25 HYDROXY [code = [facility] Scheduled Test 1988-] [facility] Future CALCIUM [code = 32920-7] Mem orial Scheduled Test [facility] Future COMPREHENSIVE METABOLIC PANEL [facility] Scheduled Test [code = 59088-5] [place] Future C-REACTIVE PROTEIN [code = 1987-5] [facility] Scheduled Test [place] Future MAGNESIUM [code = 21760-3] M [facility] Scheduled Test [place] Future IRON, TIBC AND FERRITIN PANEL [facility] Scheduled Test [code = NOCPT] [place] Future CLOSTRIDIUM DIFFICILE TOXIN/GDH [facility] Scheduled Test WITH REFLEX TO PCR [code = [facility] 07271-6] Future STELARA(R)USTEKINUMAB [code = [facility] Scheduled Test NOCPT] [facility] Future Upcoming [facility] Scheduled Test EncountersDateTypeSpecialtyCare [place] ZuarXwwopkzfqow77/08/2019Office VisitEndocrinologyNRichardson starr MD[address], [address] [place] [address] [phone] (Fax)Health MaintenanceDue DateLast DoneCommentsMAMMOGRAM [id number] 1971MEDICARE AWV1971TETANUS SHOT (ADULT)09/13/1986BMI FOLLOW UP PLAN09/13/1989HIV AZQORWDDP22/16/1990CERVICAL CANCER SCREENING 3 YEAR FOLLOW UP09/13/1992FLU VACCINE > 6 [id number]/29/2018documented as of this encounter [code = Upcoming EncountersDateTypeSpecialtyCare SqhtJxatspbzuez66/08/2019Office VisitEndocrinologRichardson Nobles MD[address] [facility], [address] [place] [address] [phone] (Fax)Health MaintenanceDue DateLast DoneCommentsMAMMOGRAM [id number] 1971MEDICARE AWV1971TETANUS SHOT (ADULT)09/13/1986BMI FOLLOW UP PLAN09/13/1989HIV BJRQGSGBX76/16/1990CERVICAL CANCER SCREENING 3 YEAR FOLLOW UP09/13/1992FLU VACCINE > 6 [id number]/29/2018documented as of this encounter] Future FLU VACCINE > 6 MONTHS [code = FLU [facility] Scheduled Test VACCINE > 6 MONTHS] [facility] Future MEDICARE AWV (Initial) [code = [facility] Scheduled Test MEDICARE AWV (Initial)] [facility] Future Screening for malignant neoplasm [facility] Scheduled Test of breast (procedure) [code = [place] 274397762] Future CERVICAL CANCER SCREENING 3 YEAR [facility] Scheduled Test FOLLOW UP [code = CERVICAL CANCER [facility] SCREENING 4 YEAR FOLLOW UP] Future Screening for malignant neoplasm [facility] Scheduled Test of cervix (procedure) [code = [facility] 971137720] Future DTaP,Tdap,and Td Vaccines (1 - [facility] Scheduled Test Tdap) [code = DTaP,Tdap,and Td [place] Vaccines (1 - Tdap)] Future HIV SCREENING [code = HIV Me morial Scheduled Test SCREENING] Markus Future TETANUS SHOT (ADULT) [code = [facility] Scheduled Test TETANUS SHOT (ADULT)] Herm chelsey Future DTaP,Tdap,and Td Vaccines (1 - [facility] Scheduled Test Tdap) [code = DTaP,Tdap,and Td [place] Vaccines (1 - Tdap)] Future PNEUMOCOCCAL 0-64 YEARS COMBINED [facility] Scheduled Test SERIES (1 of 1 - PPSV23) [code = Markus PNEUMOCOCCAL 0-64 YEARS COMBINED SERIES (1 of - PPSV23)] Future MAMMOGRAM ANNUAL [code = MAMMOGRAM [facility] Scheduled Test ANNUAL] [place] Future CT ABD/PELVIS ENTEROGRAPHY W [code 1 Occu rrences [facility] Scheduled Test = 28970-4] starting [employer] of 06/12/2019 Medicine until 01/11/2020 Future 2022-01-04 Estefania Wang, 1700 Regino Jones; , Janna Appointment 00:00:00 [place] [address] [facility] Instructions [facility] Instructions [facility] Encounters Start End Encounter Admission Attending Care Care Encounter Source Date/Time Date/Time Type Type Clinicians Facility Department ID 2021-07-23 Outpatient [facility] [id number] [place] 23:40:06 -[id number] [facility] 2021-07-[address] [facility] 16[facility]53:01 [facility] 2021-07-[address] [facility] 08:11:03 [facility] 2021-07-[address] [facility] 16:08:01 [facility] 2021-02-03 Outpatient NORMA MOCK Surgery [id number] [facility] 03:19:49 APRIL 2016-11-04 Inpatient Chioma CASH [facility] RAD [id number] [facility] 09:30:00 [facility] 2021-11-15 2021-11-15 Outpatient SUNNY_VARGAS [facility] [id number] [place] 09:52:00 09:52:00 H [facility]18 [facility] 2021-10-25 2021-10-25 Outpatient [facility] [id number] Memoria 05:00:00 12:30:00 ELLY [facility] 2021-10-04 2021-10-04 Outpatient DESAI_KES [facility] 839 [place] 12:30:00 12:30:00 H 0606 [facility] 2021-10-04 2021-10-04 Estefania [facility] [place] - [id number] atagor 00:00:00 00:00:00 Jer Wang MD: Anglican Epi scop 1700 HOP - MDROBERTO CARLOS [facility] [address] [facility] , Ph. [phone] 2021-09-24 Outpatient Hawkins_M [facility] [id number] [place] 12:06:00 12:06:00 0715 Medical Group 2021-09-24 2021-09-24 Outpatient Hawkins_M [facility] [id number] [place] 12:06:00 12:06:00 0527 Medical Group 2021-09-24 2021-09-[address] [facility] [place] - [id number] M atagor 00:00:00 00:00:00 [facility]: [address] [facility] [address], [place] [address] , Ph. 2021-09-21 2021-09-21 Outpatient JANI ALEJANDRO [facility] [id number] [facility] 10:54:21 11:23:41 [facility] Medicin e 2021-09-13 2021-09-13 Outpatient RICK MDROBERTO CARLOS [facility] 83 [place] 10:03:00 10:03:00 H 0516 [facility] 2021-09-08 2021-09-10 Outpatient JESSE LOPEZFORMERLY [facility] Surgery [id number] [facility] 00:20:00 17:56:00 2021-09-07 2021-09-07 Outpatient RICK MDROBERTO CARLOS [facility] 83 [place] 04:42:00 04:42:00 H 0510 [facility] 2021-09-01 2021-09-01 Outpatient MIRACLE DASILVA [facility] [id number] [facility] 12:30:30 23:59:00 RANDY 2021-08-23 2021-08-23 Outpatient YINGPaco ARMANDO [facility] [id number] [facility] 15:54:39 16:21:28 APRIL Crawford e [facility] Medicin e 2021-07-28 2021-07-28 Outpatient Hawkins_M MMG MMG [id number] -2021 [place] 08:07:00 08:07:00 0415 da Medical Group 2021-07-24 2021-07-24 Outpatient Hawkins_M MMG MMG [id number] -2021 [place] 01:09:00 01:09:00 0326 da Medical Group 2021-07-24 2021-07-24 Outpatient Hawkins_M MMG MMG [id number] -2021 [place] 01:09:00 01:09:00 0327 da Medical Group 2021-07-24 2021-07-24 Merari MMG [place] - [id number] M at[place]or 00:00:00 00:00:00 Anahy Long, Medical Medical NEW MEDIA STRATEGIST: [address] [facility] [address], [place] [address] , Ph. 2021-07-14 2021-07-14 ambulatory STLMLC STLMLC [id number] Common 00:00:00 00:00:00 [facility] 2021-07-12 2021-07-12 Outpatient Hawkins_M MMG MMG [id number] -2021 [place] 10:19:00 10:19:00 0314 da Medical Group 2021-07-12 2021-07-12 Merari MMG [place] - [id number] M at[place]or 00:00:00 00:00:00 Anahy Long, Medical Medical NEW MEDIA STRATEGIST: [address] [facility] [address], [place] [address] , Ph. 2021-07-05 2021-07-07 Inpatient ER ARIF, SAHAR [facility] Internal [id number] [facility] 04:16:00 14:04:00 Med 2021-07-02 2021-07-02 Outpatient MIRACLE MOCK [facility] Surgery [id number] [facility] 10:43:00 14:08:00 APRIL 2021-07-02 2021-07-02 Outpatient YULISSAGALA ARMANDO Gustavo [id number] [facility] 10:19:32 10:19:32 APRIL Crawford e of Medicin e 2021-07-01 2021-07-01 Outpatient EL [facility] [id number] [facility] 10:58:51 23:59:00 2021-06-28 2021-06-28 Outpatient AMBREEN_FAR [facility] 839 [place] 12:09:00 12:09:00 PATRICK 0228 [facility] 2021-06-28 2021-06-28 [facility] [place] [facility] [id number] M atagor 00:00:00 00:00:00 Jer Wang MD: Anglican Epi scop 1700 [facility] [address] Cornelius cohen , Ph. [phone] 2021-06-24 Outpatient Hawkins_M [facility] [id number] [place] 10:57:00 10:57:00 0224 Medical Group 2021-06-24 2021-06-[address] [facility] [place] - [id number] M atagor 00:00:00 00:00:00 Rudi Jj Medical NEW MEDIA STRATEGIST: [address], [place] [address] , Ph. 2021-06-18 2021-06-18 Outpatient ARMANDO FIELDS Gustavo [id number] [facility] 10:20:57 11:15:16 FALGUNI Crawford e of Medicin e 2021-06-08 2021-06-08 Outpatient Hawkins_M MMG [facility] [id number] [place] 04:51:00 04:51:00 0215 Medical Group 2021-06-03 2021-06-03 [place] [id number] [place] 08:52:00 08:52:00 0204 Medical Group 2021-05-25 2021-05-25 [facility], 1.2.840.1 [id number] Methodi 14:45:00 15:13:18 Visit Frank MaddoxDemetri 08962.1.1 769 s t 3.430.2.7 Hospit a .3.907220 l .8 2021-05-25 2021-05-25 Travel 1.2.840.1 1.2.581.382 [id number] [id number] Methodi 00:00:00 00:00:[address] 3.430.2.7 0.2.7.3.698 Ho spita .3.116349 084.8 l .8 2021-05-13 2021-05-13 Outpatient Hawkins_M MMG [facility] [id number] [place] 01:55:00 01:55:00 0113 Medical Group 2021-05-13 2021-05-13 Outpatient Hawkins_M MMG MMG [id number] [place] 01:55:00 01:55:00 0119 Medical Group 2021-05-10 2021-05-10 [facility], 1.2.840.1 [id number] Methodi 08:30:00 16:29:00 Encounter Frank EDemetri 05924.1.[address] 3.430.2.7 Hospit a .3.790485 l .8 2021-05-10 2021-05-10 Surgery [facility], 1.2.840.1 [id number] Methodi 09:55:00 12:25:00 Frank MaddoxDemetri 81714.1.1 608 s t 3.430.2.7 Hospit a .3.715692 l .8 2021-05-10 2021-05-10 Anesthesia Terri Forbes 1.2.840.1 10 [id number] Methodi 09:41:00 11:23:00 Event Anuja Drake [address]306.1.[address] 3.430.2.7 Hospit a .3.422623 l .8 2021-05-06 2021-05-06 Pre-Admiss Do, 1.2.840.1 [id number] Methodi 11:00:00 12:00:00 viktor Gutierrez 86888.1.1 520 s t Testing 3.430.2.7 Hospit a .3.529304 l .8 2021-05-06 2021-05-[address] [facility] [id number] [place] 02:54:00 02:54:00 0108 Medical Group 2021-05-06 2021-05-06 Travel 1.2.840.1 1.2.119.847 [id number] Methodi 00:00:00 00:00:[address] 3.430.2.7 0.2.7.3.698 Ho spita .3.129279 084.8 l .8 2021-05-04 2021-05-04 [facility] [id number] 07:13:37 23:59:00 [facility] 2021-05-04 2021-05-04 Outpatient MIRACLE SZYMANSKI [facility] SLE [id number] [facility] 07:13:37 23:59:00 ELLY 2021-05-03 2021-05-03 [facility] [id number] 08:45:33 23:59:00 Encounter [facility] 2021-05-03 2021-05-03 Outpatient [facility] SLE SLE [id number] [facility] 08:45:33 23:59:00 [facility] 2021-05-03 2021-05-03 Outside [place] [facility] [id number] 00:00:00 00:00:[address] [facility] 2021-04-30 2021-04-30 Outpatient SilvanoTanisha GEEG MMG [id number] -2021 [place] 10:22:00 10:22:00 0105 Medical Group 2021-04-29 2021-04-29 Outpatient EL SLE [facility]H [id number] [facility] 00:00:00 00:00:00 2021-04-28 2021-04-28 Outpatient Nieves_M [facility] [id number] -2020 [place] 04:54:00 04:54:00 1229 Medical Group 2021-04-28 2021-04-28 Merari GEE [place] - [id number] M atagor 00:00:00 00:00:00 Anahy grady [facility] Medical NEW MEDIA STRATEGIST: [address] [address], [place] [address] , Ph. 2021-04-22 2021-04-22 Outpatient Nieves_M [facility] [id number] -2020 [place] 03:28:00 03:28:00 1223 Medical Group 2021-04-22 2021-04-22 Merari GEE [place] - [id number] M atagor 00:00:00 00:00:00 Anahy grady [facility] Medical NEW MEDIA STRATEGIST: [address] [address], [place] [address] , Ph. 2021-04-16 2021-04-16 Outpatient Nieves_M [facility] [id number] -2020 [place] 12:39:00 12:39:00 1221 Medical Group 2021-04-15 2021-04-15 Outpatient ARMANDO MOCK [facility] [id number] [facility] 09:44:17 10:29:41 APRIL maddox of Medicin e 2021-04-13 2021-04-13 ST BrentChioma [id number] JASPREET Goldman 00:00:00 00:00:00 Only Suzie Batista [facility] 2021-03-31 2021-03-31 Travel 1.2.840.1 1.2.227.754 4614 [id number] Methodi 00:00:00 00:00:[address] 3.430.2.7 0.2.7.3.698 Ho spita .3.888026 084.8 l .8 2021-03-30 2021-03-30 Prep for Jerry, 1.2.840.1 [id number] Methodi 00:00:00 00:00:00 Surgery Muriel P [address].1.[address] 3.430.2.7 Hospit a .3.035657 l .8 2021-03-29 2021-03-29 Outpatient AMBREEN_[facility] [id number] [place] 11:52:00 11:52:00 PATRICK 1129 [facility] 2021-03-29 2021-03-29 [facility] [place] - [id number] atagor 00:00:00 00:00:00 Almatildirk Wang MD: Anglican Epi scop 1700 [facility] [address] [facility] noel , Ph. [phone] 2021-03-23 Outside [facility] [id number] [facility] 00:00:00 00:00:00 Orders [facility] 2021-03-17 2021-03-17 Outpatient Vivek [facility] [id number] [place] 11:17:00 11:17:00 1124 da Medical Group 2021-03-12 2021-03-12 Office ARMANDO Lopez 1.2.840.114 [id number] [facility] 09:30:00 12:19:22 Visit Suzie AMBULATOR 350.1.13.21 College Y 0.2.7.2.686 of [id number] Medi marlene 355 e 2021-03-11 2021-03-11 Office Do, 1.2.840.1 [id number] Methodi 14:30:00 15:38:25 Visit Frank Gutierrez 22194.1.1 490 s t 3.430.2.7 Hospit a .3.891093 l .8 2021-03-11 2021-03-11 Travel 1.2.840.1 1.2.824.495 3506 [id number] Methodi 00:00:00 00:00:[address] 3.430.2.7 0.2.7.3.698 Ho spita .3.224797 084.8 l .8 2021-03-04 2021-03-04 Telephone Walker, 1.2.840.1 [id number] Methodi 00:00:00 00:00:[address] 3.430.2.7 Hospit a .3.938381 l .8 2021-03-02 2021-03-02 [facility] [id number] [place] 03:02:00 03:02:00 1102 Medical Group 2021-03-02 2021-03-02 [place] [id number] -2020 [place] 03:02:00 03:02:00 1104 da Medical Group 2021-03-02 2021-03-[address] [facility] [place] - [id number] M atagor 00:00:00 00:00:00 Satnam Dueñas MD: Medical Medica l [address] [place] [address] General [address], [place] [address] , Ph. [phone] 2021-02-23 2021-02-23 Outpatient Hawkins_M MMG [facility] [id number] -2020 [place] 08:10:00 08:10:00 1026 da Medical Group 2021-02-19 2021-02-19 [place] [id number] [place] 12:41:00 12:41:00 1022 Medical Group 2021-02-19 2021-02-[address] [facility] [place] - [id number] M atagor 00:00:00 00:00:00 Anahy Long Medical Medical NEW MEDIA STRATEGIST: [address], [place] [address] , Ph. 2021-02-02 2021-02-02 Araceli William Cornelius2.840.1 [id number] Methodi 00:00:00 00:00:[address] [place] [address] 3.430.2.7 Hospit a .3.258712 l .8 2021-01-25 2021-01-25 Outpatient [facility] [id number] [place] 03:14:00 03:14:00 09 Medical Group 2021-01-25 2021-01-25 Outpatient Hawkins_M MMG [facility] [id number] [place] 03:14:00 03:14:00 0928 Medical Group 2021-01-25 2021-01-[address] [facility] [place] - [id number] M at[place]or 00:00:00 00:00:00 Anahy Long, Medical Medical NEW MEDIA STRATEGIST: [address], [place] [address] , Ph. 2021-01-19 2021-01-19 Office ARMANDO LOPEZ 1.2.840.[id number] [place] [address] 13:31:56 16:19:42 Visit OYEBUCTI AMBULATOR 350.1.13.21 College Y 0.2.7.2.686 [id number] [facility] marlene 355 e 2021-01-18 2021-01-18 Outpatient Hawkins_M MMG [facility] [id number] [place] 10:53:00 10:53:00 0920 da Medical Group 2020-12-28 2020-12-28 Outpatient BEULAHREEN_MAN MDROBERTO CARLOS [facility] [id number] [place] 11:52:00 11:52:00 PATRICK 0830 [facility] h Program 2020-12-28 2020-12-28 Estefania [place] - [id number] M atagor 00:00:00 00:00:00 Jer Wang, MD: Anglican Epi scop 1700 [facility] [address] [facility] , Ph. [phone] 2020-12-18 Outpatient Hawkins_M MMG MMG [id number] -2020 [place] 02:10:00 02:10:00 0820 da Medical Group 2020-12-18 2020-12-18 Outpatient Hawkins_M MMG MMG [id number] [place] 02:10:00 02:10:00 0828 da Medical Group 2020-12-18 2020-12-18 Merari MMG [place] - [id number] M at[place]or 00:00:00 00:00:00 Anahy Long Medical Medical NEW MEDIA STRATEGIST: [address] [facility] [address], [place] [address] , Ph. 2020-12-15 2020-12-15 Outpatient Hawkins_M MMG MMG [id number] [place] 09:22:00 09:22:00 0819 da Medical Group 2020-12-08 2020-12-08 Outpatient Hawkins_M MMG MMG [id number] [place] 03:08:00 03:08:00 0810 da Medical Group 2020-12-08 2020-12-08 Merari MMG [place] - [id number] M atagor 00:00:00 00:00:00 Anahy Long Medical Medical NEW MEDIA STRATEGIST: [address] [facility] [address], [place] [address] , Ph. 2020-12-05 2020-12-05 Outpatient Hawkins_M MMG MMG [id number] -2020 [place] 12:26:00 12:26:00 0809 da Medical Group 2020-12-02 2020-12-02 Outpatient Hawkins_M MMG MMG [id number] -2020 [place] 06:31:00 06:31:00 0806 da Medical Group 2020-12-02 2020-12-02 Outpatient Hawkins_M MMG MMG [id number] -2020 [place] 06:31:00 06:31:00 0807 da Medical Group 2020-11-30 2020-11-30 Outpatient Silvanokins_M MMG MM [id number] -2020 [place] 12:35:00 12:35:00 0802 da Medical Group 2020-11-30 2020-11-30 Merari GEEG [place] - [id number] M atagor 00:00:00 00:00:00 Anahy Long Medical Medical NEW MEDIA STRATEGIST: [address] [facility] [address], [place] [address] , Ph. 2020-11-20 2020-11-20 [facility] [id number] 08:15:16 23:59:00 Encounter 1.5, [facility] Jase Mr [facility] 2020-11-20 2020-11-20 [facility] [id number] 08:00:00 08:14:00 Encounter 1.5, [facility] Jase Mr [facility] 2020-11-20 2020-11-20 [facility] SLE [id number] [facility] 00:00:00 00:00:00 [facility] 2020-11-20 2020-11-[address] [facility] SLE [id number] [facility] 00:00:00 00:00:00 2020-11-17 2020-11-17 Outpatient Nieves_M MMG [facility] [id number] [place] 02:14:00 02:14:00 0720 Medical Group 2020-11-17 2020-11-17 Merari MM [place] - [id number] M atagor 00:00:00 00:00:00 Anahy Long Medical Medical NEW MEDIA STRATEGIST: [address] [facility] [address], [place] [address] , Ph. 2020-11-10 2020-11-10 [facility] [id number] 00:00:00 00:00:00 [facility] 2020-10-26 2020-10-26 Outpatient Hawkins_M MMG MMG [id number] [place] 02:35:00 02:35:00 0628 Medical Group 2020-10-26 2020-10-26 Merari MMG [place] - [id number] M atagor 00:00:00 00:00:00 Anahy Long Medical Medical NEW MEDIA STRATEGIST: [address] [facility] [address], [place] [address] , Ph. 2020-10-12 2020-10-12 Outpatient Hawkins_M MMG MMG [id number] [place] 03:56:00 03:56:00 0614 Medical [facility] 2020-10-12 2020-10-12 Outpatient Hawkins_M MMG MMG [id number] [place] 03:56:00 03:56:00 0622 Medical Group 2020-10-12 2020-10-12 Merari MM [place] - [id number] M at[place]or 00:00:00 00:00:00 Anahy Long Medical Medical NEW MEDIA STRATEGIST: [address] [facility] [address], [place] [address] , Ph. 2020-10-05 2020-10-05 Outpatient AMBREEN_FAR MDROBERTO CARLOS [facility]A 839 [place] 12:48:00 12:48:00 PATRICK 0607 da [facility] Program 2020-10-05 2020-10-05 [facility] [place] - [id number] M atagor 00:00:00 00:00:00 Jer Wang MD: Anglican Epi scop 1700 [facility] [address] [facility] , Ph. [phone] 2020-09-22 Outpatient Hawkins_M MMG MMG [id number] [place] 01:04:00 01:04:00 0527 da Medical Group 2020-08-18 2020-08-18 [place] [id number] [place] 09:58:00 09:58:00 0423 da Medical Group 2020-08-12 2020-08-12 [place] [id number] [place] 04:29:00 04:29:00 0414 da Medical Group 2020-08-12 2020-08-12 [place] [id number] [place] 04:29:00 04:29:00 0415 da Medical Group 2020-08-12 2020-08-12 [place] [id number] [place] 04:29:00 04:29:00 0418 da Medical Group 2020-08-12 2020-08-12 Outpatient Hawkins_M MMG [facility] [id number] [place] 04:29:00 04:29:00 0420 Medical Group 2020-08-12 2020-08-[address] [facility] [place] - [id number] M atagor 00:00:00 00:00:00 Anahy [facility] Medical NEW MEDIA STRATEGIST: [address] [facility] [address], [place] [address] , Ph. 2020-08-03 2020-08-03 Day Count includes the [facility] [id number] 675 Memoria 10:11:00 14:30:00 Surgery r Markus l [facility] 2020-08-03 2020-08-03 Outpatient [facility] [id number] Memoria 05:11:00 09:30:00 ELLY ruelas [facility] 2020-07-31 2020-07-31 Outpatient Yan_W MMG [facility] [id number] [place] 11:16:00 11:16:00 0402 Medical Group 2020-07-31 2020-07-31 Outpatient Yan_W MMG [facility] [id number] [place] 11:16:00 11:16:00 0403 Medical Group 2020-07-31 2020-07-31 Parish Adams MM [place] - [id number] [place] 00:00:00 00:00:00 MD: Candi [facility] [address], [facility], Otolaryngol [place] [facility] [address] , Ph. 2020-07-16 2020-07-16 Outpatient Yan_W [facility] [id number] [place] 05:29:00 05:29:00 0401 Medical Group 2020-07-06 2020-07-06 Outpatient AMBREEN_[facility] [id number] [place] 10:58:00 10:58:00 PATRICK 0308 [facility] 2020-07-06 2020-07-06 [facility] [place] - [id number] M atagor 00:00:00 00:00:00 Jer Wang MD: Anglican Epi scop 1700 [facility] [address] [facility] , Ph. ([phone]) 2020-06-23 2020-06-23 Outpatient Yan_W [facility] [id number] [place] 03:46:00 03:46:00 0223 Medical Group 2020-06-23 2020-06-23 Outpatient Yan_W [facility] [id number] [place] 03:46:00 03:46:00 0225 Medical Group 2020-06-23 2020-06-[address] [facility] [place] - [id number] M atagor 00:00:00 00:00:00 Anahy Long [facility] Medical NEW MEDIA STRATEGIST: Candi [facility] [address], [place] [address] , Ph. 2020-06-03 2020-06-03 Outpatient Yan_W [facility] [id number] [place] 12:45:00 12:45:00 0203 Medical Group 2020-05-27 2020-05-27 Outpatient Yan_W MMG [facility] [id number] [place] 02:53:00 02:53:00 0127 Medical Group 2020-05-27 2020-05-27 Outpatient Yan_W MMG [facility] [id number] [place] 02:53:00 02:53:00 0128 Medical Group 2020-05-27 2020-05-27 Parish GERARD AdamsG [place] - [id number] [place] 00:00:00 00:00:00 MD: Candi Nice [facility] [address], [facility], [facility] [address] , Ph. 2020-05-11 2020-05-12 [facility] [id number] 675 Memoria 15:36:00 01:40:00 Surgery r [address] 2020-05-11 2020-05-11 Outpatient [facility] [id number] Memoria 09:36:00 19:40:00 [facility] 2020-05-10 2020-05-10 Outpatient Hawkins_M MMG [facility] [id number] [place] 07:52:00 07:52:00 0110 Medical Group 2020-05-10 2020-05-10 Outpatient Hawkins_M MMG [facility] [id number] -2020 [place] 07:52:00 07:52:00 0115 Medical Group 2020-05-10 2020-05-10 Outpatient Hawkins_M MMG [facility] [id number] -2020 [place] 07:52:00 07:52:00 0120 Medical Group 2020-05-10 2020-05-10 Outpatient Hawkins_M MMG [facility] [id number] -2020 [place] 07:52:00 07:52:00 0123 Medical Group 2020-05-04 2020-05-04 Outpatient [place] [id number] -2020 [place] 11:55:00 11:55:00 0104 Medical Group 2020-05-04 2020-05-04 Outpatient Hawkins_M MMG [facility] [id number] [place] 11:55:00 11:55:00 0107 [facility] 2020-05-04 2020-05-04 [place] G [place] - [id number] [place] 00:00:00 00:00:00 [facility] NEW MEDIA STRATEGIST: [address], [place] [address] , Ph. 2020-04-30 2020-04-30 Outpatient Nieves_M [facility] [id number] [place] 10:21:00 10:21:00 1231 [facility] 2020-04-28 2020-04-28 Outpatient G_Pappas [facility] [id number] [place] 11:28:00 11:28:00 1229 [facility] 2020-04-26 2020-04-26 Outpatient AMBREEN_FAR MEHOP MEHOP [id number] [place] 03:43:00 03:43:00 [facility] 2020-04-26 2020-04-26 Outpatient AMBREEN_FAR MEHOP MEHOP [id number] [place] 03:43:00 03:43:00 HANA 1227 [facility] 2020-04-10 2020-04-10 Outpatient G_Pappas [facility] [id number] [place] 05:24:00 05:24:00 1211 [facility] 2020-04-08 2020-04-08 Outpatient AMBREEN_FAR MEHOP MEHOP [id number] [place] 04:50:00 04:50:00 HANA 1209 [facility] 2020-04-08 2020-04-08 [facility] [place] - [id number] [place] 00:00:00 00:00:00 Jer Wang MD: [facility] 1700 HOP - [facility] [address] [facility] , Ph. [phone] 2020-04-07 Outpatient AMBREEN_FAR MEHOP MEHOP [id number] [place] 12:19:00 12:19:00 HANA 1208 [facility] 2020-04-02 2020-04-02 Outpatient G_Pappas [facility] [id number] [place] 03:25:00 03:25:00 1203 [facility] 2020-04-02 2020-04-02 Outpatient G_Pappas [facility] [id number] [place] 03:25:00 03:25:00 1207 [facility] 2020-04-02 2020-04-02 [facility] [place] - [id number] [place] 00:00:00 00:00:00 Discovery ysabel Franco MD: [address] [place] [address] [address], [place] [address] , Ph. [phone] 2020-03-28 2020-03-28 Outpatient Hawkins_M [facility] [id number] [place] 01:09:00 01:09:00 1128 [facility] 2020-03-18 2020-03-18 Outpatient AMBREEN_MAN LAREDO [facility] 83 [place] 10:35:00 10:35:00 HANA [facility]8 [facility] 2020-03-18 2020-03-18 Outpatient Hawkins_M MMG MMG [id number] [place] 03:31:00 03:31:00 1118 da [facility] Group 2020-03-18 2020-03-18 Outpatient Hawkins_M MMG MMG [id number] [place] 03:31:00 03:31:00 1119 da [facility] Group 2020-03-18 2020-03-18 Outpatient Hawkins_M MMG MMG [id number] [place] 03:31:00 03:31:00 1123 da Medical Group 2020-03-18 2020-03-18 Merari MMG [place] - [id number] M at[place] 00:00:00 00:00:00 Rudi Jj NEW MEDIA STRATEGIST: [address] [facility] [address], [place] [address] , Ph. 2020-03-16 2020-03-16 Outpatient Hawkins_M MMG MMG [id number] [place] 12:25:00 12:25:00 1116 da Medical Group 2020-03-09 2020-03-09 Outpatient G_Pappas MMG MM [id number] [place] 04:12:00 04:12:00 1109 da Medical Group 2020-03-05 2020-03-05 Outpatient Yan_W MMG MM [id number] [place] 10:15:00 10:15:00 1105 Medical Group 2020-02-11 2020-02-11 Outpatient Yan_W MMG MM [id number] [place] 11:59:00 11:59:00 1013 Medical Group 2020-02-07 2020-02-07 Outpatient AMBREEN_MAN [facility] 839 [place] 04:36:00 04:36:00 PATRICK 1102 da [facility] Outre h Program 2020-01-29 2020-01-29 Outpatient ENMANUEL, [facility] [id number] [place] 00:00:00 00:00:00 MARTINEZ 497 Method i 2020-01-29 2020-01-29 Outpatient ENMANUEL, [facility] [id number] [place] 00:00:00 00:00:00 MARTINEZ [address] 2020-01-29 2020-01-29 Outpatient ENMANUEL, [facility] [id number] [address] [place] 00:00:00 00:00:00 MARTINEZ [address] 2020-01-24 2020-01-24 Outpatient cMcDonald MMG MM [place] 12:07:00 12:07:00 0925 Medical Group 2020-01-24 2020-01-24 [place]Mc[place] [id number] [place] 12:07:00 12:07:00 0926 Medical Group 2020-01-24 2020-01-24 Merari MMG [place] - [id number] M [place] 00:00:00 00:00:00 Anahy Long Medical Medical NEW MEDIA STRATEGIST: [address] [facility] [address], [place] [address] , Ph. 2020-01-17 2020-01-17 [place] [id number] [place] 02:28:00 02:28:00 0918 da Medical Group 2020-01-17 2020-01-[address] [facility] [id number] [place] 02:28:00 02:28:00 0920 da Medical Group 2020-01-17 2020-01-17 Jake MMG [place] - [id number] M [place] 00:00:00 00:00:00 Discovery ysabel Franco MD: 600 [facility] [place] [address], [place] [address] , Ph. [phone] 2020-01-08 2020-01-08 Outpatient EL SLEH SLEH [id number] [facility]H 00:00:00 00:00:00 2019-12-17 2019-12-17 Office nullFlavo [facility] [id number] Memoria 18:39:48 20:29:29 Visit [facility] Markus Orthopedic Surgery 2019-12-17 2019-12-17 Office ARMANDO Sandoval 1.2.840.114 [id number] 13:39:48 15:29:29 Visit Mohsen AMBULATOR 350.1.13.21 Y 0.2.7.2.686 [id number] [facility] 2019-12-17 2019-12-17 Office ARMANDO Sandoval 1.2.840.[id number] [place] [address] 13:39:48 15:29:29 Visit Mohsen AMBULATOR 350.1.13.21 College Y 0.2.7.2.686 of [id number] [facility] 600 e 2019-12-11 2019-12-11 Telephone nullFlavmoe [place] [id number] Memoria 00:00:00 00:00:00 r Orthopaedic l Surgery- Markus [place] 2019-12-11 2019-12-11 [facility] 1.2.840.114 [id number] 00:00:00 00:00:00 [facility] 350.1.13.10 Surgical 4.2.7.2.686 Specialti [id number] 198 [place] 2019-12-09 2019-12-09 Outpatient BEULAHREEN_MAN [place] MDROBERTO CARLOS [id number] [place] 03:35:00 03:35:00 HANA 0810 [facility] 2019-12-09 2019-12-09 Estefania ALLEN [place] - [id number] M at[place] 00:00:00 00:00:00 Jer Wang MD: Anglican Epi scop 1700 [facility] [address] [facility] , Ph. [phone] 2019-12-08 Outpatient cMcDonald MMG MMG [id number] [place] 10:12:00 10:12:00 0809 da Medical Group 2019-12-03 2019-12-03 Outpatient cMcDonald MMG MMG [id number] [place] 02:38:00 02:38:00 0804 da Medical Group 2019-12-03 2019-12-03 Outpatient cMcDonald MMG MMG [id number] [place] 02:38:00 02:38:00 0805 da Medical Group 2019-12-03 2019-12-03 Outpatient cMcDonald MMG MMG [id number] [place] 02:38:00 02:38:00 0806 Medical Group 2019-12-03 2019-12-03 Shanelle G [place] - [id number] M [place] 00:00:00 00:00:00 Discovery ysabel Morley MD: 600 [facility] - [address], [place] [address] , Ph. 2019-12-02 2019-12-02 Outpatient cMcDonald MMG MMG [id number] [place] 10:16:00 10:16:00 0803 da Medical Group 2019-11-26 2019-11-26 Outpatient Hawkins_M MMG MMG [id number] [place] 12:11:00 12:11:00 0729 da Medical Group 2019-11-14 2019-11-14 Outpatient Hawkins_M MMG MMG [id number] [place] 06:53:00 06:53:00 0716 da Medical Group 2019-11-12 2019-11-12 Outpatient Hawkins_M MMG MMG [id number] [place] 12:34:00 12:34:00 0714 Medical Group 2019-11-12 2019-11-12 Outpatient Hawkins_M MMG MMG [id number] [place] 12:34:00 12:34:00 0715 Medical Group 2019-11-07 2019-11-07 Office nullFlavo [facility] Health [id number] Memoria 14:07:33 14:22:33 Visit r Orthopaedic l Surgery- Markus Ferrum 2019-11-07 2019-11-07 [facility] [id number] 09:07:33 09:22:33 Visit [facility] 350.1.13.10 Surgical 4.2.7.2.686 Specialti [id number] es 198 [place] 2019-11-07 2019-11-07 [facility] [id number] Univers 09:00:00 09:00:00 SHANELLE michelle [facility] 2019-11-07 2019-11-07 [place]patient [place] [id number] [place] 02:16:00 02:16:00 0709 Medical Group 2019-11-07 2019-11-07 [place] [id number] [place] 02:16:00 02:16:00 0711 Medical Group 2019-11-07 2019-11-07 Outpatient Hawkins_M MMG MMG [id number] [place] 02:16:00 02:16:00 0713 Medical Group 2019-11-07 2019-11-[address] [facility] [place] - [id number] M at[place] 00:00:00 00:00:00 Anahy Long, Medical Medical NEW MEDIA STRATEGIST: [address] [facility] [address], [place] [address] , Ph. 2019-11-06 2019-11-06 Outpatient Hawkins_M MMG MMG [id number] [place] 02:20:00 02:20:00 0708 Medical Group 2019-10-31 2019-10-31 [facility] [id number] [place] 00:00:00 00:00:00 LEX womack 2019-10-28 2019-10-28 Outpatient [facility] [id number] [place] 00:00:00 00:00:00 463 Method i 2019-10-24 2019-10-24 Outpatient Hawkins_M MMG MMG [id number] [place] 11:34:00 11:34:00 0702 Medical Group 2019-10-15 2019-10-15 Outpatient Hawkins_M MMG MMG [id number] [place] 04:41:00 04:41:00 0616 Medical Group 2019-10-15 2019-10-[address] [facility] [place] - [id number] M [place] 00:00:00 00:00:00 Discovery ysabel Schulz NEW MEDIA STRATEGIST: 600 [facility] [place] [address], [place] [address] , Ph. 2019-09-19 2019-09-19 Outpatient SLE SLE [id number] SLEH 00:00:00 00:00:00 [id number] 2019-09-13 2019-09-13 Outpatient Hawkins_[place] MM [id number] [place] 02:27:00 02:27:00 0608 Medical Group 2019-09-13 2019-09-13 Outpatient Hawkins_M MMG MMG [id number] [place] 02:27:00 02:27:00 0615 Medical Group 2019-09-12 2019-09-12 Outpatient SLE SLE [id number] SLEH 00:00:00 00:00:00 2019-09-12 2019-09-12 Outpatient SLEH SLEH [id number] SLEH 00:00:00 00:00:00 [id number] 2019-09-10 2019-09-10 Outpatient AMBREEN_[facility] [id number] [place] 10:28:00 10:28:00 HANA 0512 [facility] 2019-09-09 2019-09-09 Outpatient AMBREEN_[facility] [id number] [place] 11:55:00 11:55:00 HANA 0511 [facility] 2019-09-09 2019-09-09 [facility] [place] - [id number] M [place] 00:00:00 00:00:00 Jer Wang MD: Anglican Epi scop 1700 HOP - [facility] [address] [facility] , Ph. [phone] 2019-09-08 Outpatient AMBREEN_[facility]AR [facility] [id number] [place] 12:52:00 12:52:00 HANA 0510 da [facility]op [facility] 2019-08-23 2019-08-23 [place] [id number] [place] 11:16:00 11:16:00 0424 da Medical Group 2019-08-23 2019-08-23 Merari MMG [place] - [id number] M [place] 00:00:00 00:00:00 Anahy Long, Medical Medical NEW MEDIA STRATEGIST: [address] [facility] [address], [place] [address] , Ph. 2019-07-28 2019-07-28 [place] [id number] [place] 06:03:00 06:03:00 0329 da Medical Group 2019-07-26 2019-07-26 Outpatient Hawkins_M MMG MMG [id number] [place] 09:49:00 09:49:00 0327 da Medical Group 2019-07-26 2019-07-26 Merari MM [place] - [id number] [place] 00:00:00 00:00:00 Anahy Long, Medical Medical NEW MEDIA STRATEGIST: [address] [facility] [address], [place] [address] , Ph. 2019-07-19 2019-07-19 Outpatient [facility] [id number] [place] 00:00:00 00:00:[address] 2019-07-15 2019-07-15 Outpatient A_Byrd MMG MMG [id number] [place] 06:35:00 06:35:00 0316 da Medical Group 2019-07-12 2019-07-12 Outpatient A_Byrd [facility] [id number] [place] 04:55:00 04:55:00 0313 da Medical Group 2019-07-12 2019-07-12 Outpatient BEULAHREEN_MAN [place] [id number] [place] 01:29:00 01:29:00 PATRICK 0320 da [facility] Program 2019-07-12 2019-07-[address] [facility] [place] - [id number] M [place] 00:00:00 00:00:00 Anahy Long, Medical Medical NEW MEDIA STRATEGIST: [address] [facility] [address], [place] [address] , Ph. 2019-07-11 2019-07-11 Office nullFlavo [facility] [id number] Mem[place] 16:02:17 17:07:46 Visit r [facility] Acute Care Surgery 2019-07-11 2019-07-11 Office ARMANDO Dalal 1.2.840.114 [id number] 11:02:17 12:07:46 Visit Luís Keating AMBULATOR 350.1.13.21 Y 0.2.7.2.686 [id number] [facility] 2019-07-11 2019-07-11 Office ARMANDO Dalal 1.2.840.[id number] [place] [address] 11:02:17 12:07:46 Visit Luís Keating AMBULATOR 350.1.13.21 College Y 0.2.7.2.686 of [id number] [facility] 815 e 2019-06-26 2019-06-26 Outpatient A_Byrd [facility] [id number] [id number] [place] 11:17:00 11:17:00 0226 da Medical Group 2019-06-19 2019-06-19 Office nullFlavo [facility]. [id number] Memoria 15:23:37 19:56:08 Visit molly reilly [facility] 2019-06-19 2019-06-19 Office nullFlavo [facility] [id number] Memoria 16:50:49 17:20:49 Visit [facility] ology 2019-06-19 2019-06-19 [facility] 1.2.840.114 [id number] 09:23:37 13:56:08 Visit Jase 350.1.13.21 0.2.7.2.686 [id number] 2019-06-19 2019-06-19 Office Javon Jani [facility] 1.2.840.114 [id number] [facility] 09:23:37 13:56:08 Visit Jase 350.1.13.21 Co llege 0.2.7.2.686 of [id number] [facility] 510 e 2019-06-19 2019-06-19 Office ARMANDO Mock 1.2.840.114 [id number] [facility] 10:50:49 11:20:49 Visit April AMBULATOR 350.1.13.21 Y 0.2.7.2.686 [id number] 325 2019-06-19 2019-06-19 Office ARMANDO Mock 1.2.840.[id number] [place] [address] 10:50:49 11:20:49 Visit April AMBULATOR 350.1.13.21 College Y 0.2.7.2.686 of [id number] [facility] 325 e 2019-06-12 2019-06-12 Office nullFlavo [facility] [id number] Memoria 14:17:31 14:47:31 Visit [facility] 2019-06-12 2019-06-12 Office ARMANDO Mock 1.2.840.114 [id number] 08:17:31 08:47:31 Visit April AMBULATOR 350.1.13.21 Y 0.2.7.2.686 [id number] 325 2019-06-12 2019-06-12 Office ARMANDO Mock 1.2.840.114 [id number] 733 [facility] 08:17:31 08:47:31 Visit April AMBULATOR 350.1.13.21 College Y 0.2.7.2.686 of [id number] [facility] 325 e 2019-06-10 2019-06-10 Outpatient AMBREEN_[facility] [id number] -[id number] [place] 12:00:00 12:00:00 HANA 0210 [facility] Program 2019-06-10 2019-06-10 Estefania MDROBERTO CARLOS [place] - [id number] M [place] 00:00:00 00:00:00 Jer Wang MD: Anglican Epi scop 1700 HOP [facility] [address], [facility] [place] Program [address] , Ph. [phone] 2019-06-05 [facility] [id number]- [id number] [place] 11:10:00 11:10:00 0205 Medical Group 2019-05-08 2019-05-08 Outpatient G_Pappas MMG MM [id number] [place] 11:02:00 11:02:00 0108 Medical Group 2019-05-08 2019-05-[address] [facility] [place] - [id number] M [place] 00:00:00 00:00:00 MD Suhas: Discovery grady [address] [place] [address] - [facility] 201[facility] [address] , Ph. 2019-04-22 2019-04-22 [facility] [id number] [place] 11:35:00 11:35:00 0107 [facility] 2019-03-18 2019-03-18 [facility] [place] - [id number] M [place] 00:00:00 00:00:00 Jer Wang MD: Anglican Epi scop 1700 [facility] [address], [facility] [place] Program [address] , Ph. [phone] 2019-01-[address] [facility] [place] - [id number] [place] 00:00:00 00:00:00 Discovery ysabel Franco MD: [address] [place] [address] [address], [place] [address] , Ph. [phone] 2019-01-25 2019-01-25 Jake JAY [place] - [id number] M [place] 00:00:00 00:00:00 Discovery ysabel Franco MD: [address] [place] [address] 101, [place] [address] , Ph. [phone] 2019-01-07 2019-01-07 Jake JAY [place] - [id number] M [place] 00:00:00 00:00:00 Discovery ysabel Franco MD: [address] [place] [address] 101, [place] [address] , Ph. [phone] 2018-12-27 2018-12-27 Jake JAY [place] - [id number] M [place] 00:00:00 00:00:00 Discovery ysabel Franco MD: [address] [place] [address] 101, [place] [address] , Ph. [phone] 2018-12-18 2018-12-18 Office nullFlavo [facility] [id number] [facility] 14:55:23 21:38:01 Visit [facility] Markus [facility] 2018-12-18 2018-12-18 Office Otto Daniels 1.2.840.114 [id number] 09:55:23 16:38:01 Visit K AMBULATOR 350.1.13.21 Y 0.2.7.2.686 [id number] 325 2018-12-18 2018-12-18 Office Otto Daniels 1.2.840.114 [id number] [facility] 09:55:23 16:38:01 Visit K AMBULATOR 350.1.13.21 College Y 0.2.7.2.686 of [id number] [facility] 325 e 2018-12-17 2018-12-17 Mychal JAY [place] - [id number] M [place] 00:00:00 00:00:00 MD Suhas: Discovery grady [address] [place] [address] - [address] [address] , Ph. 2018-12-07 2018-12-07 Mychal Espinosa MM [place] - [id number] M [place] 00:00:00 00:00:00 MD Suhas: Discovery grady [address] [place] [address], [place] [address], [facility], [facility] [place] [address] , Ph. 2018-10-17 2018-10-17 Mychal JAY [place] - [id number] M at[place]or 00:00:00 00:00:00 MD Suhas: [address], [place] [address], [facility], [facility] [place] [address] , Ph. 2018-10-15 2018-10-[address] [facility] [address] [id number] Memoria 22:22:00 16:45:00 Inpatient r [facility] 13 l [facility] 2018-09-17 2018-09-17 Julia MMG [place] - [id number] M [place] 00:00:00 00:00:00 Discovery ysabel Schulz NEW MEDIA STRATEGIST: [address] [place] [address], [facility], [facility] [place] [address] , Ph. 2018-08-29 2018-08-29 Mychal Espinosa MM [place] - [id number] M [place] 00:00:00 00:00:00 MD Suhas: [place] [address], [facility], [facility] [place] [address] , Ph. 2018-08-15 2018-08-15 Mychal Espinosa MM [place] - [id number] M [place] 00:00:00 00:00:00 MD Suhas: [place] [address], [facility], [facility] [place] [address] , Ph. 2018-07-18 2018-07-18 [facility] [id number] Memoria 19:26:00 22:16:00 Emergency r [facility] 20 l [facility] 2017-02-18 2017-02-19 Emergency nullFlavo [facility] 65848 55921 Memoria 20:36:00 00:04:00 r [place] 32 l [facility] 2016-10-10 2016-10-12 Inpatient nullFlavo [facility] [id number] 32314 Memoria 05:55:00 15:24:00 r [place] 31 l [facility] 2016-07-15 2016-07-19 Inpatient 1 HARSHIL ALLEN [facility] [id number] [facility] 18:47:00 10:30:00 [facility] 2016-02-10 2016-02-10 Emergency nullFlavo [facility] 91644 47324 Memoria 18:15:00 21:40:00 r Markus 30 l [facility] 2014-08-13 2014-08-13 EC nullFlavo [facility] [id number] 675 Memoria 11:48:00 17:01:00 Emergency r Markus 29 l [facility] 2014-03-09 2014-03-09 EC nullFlavo [facility] [id number] 675 Memoria 11:36:00 18:21:00 Emergency r [place] [address] [facility] 2014-01-14 2014-01-14 EC nullFlavo [facility] [id number] 675 Memoria 12:52:00 23:11:00 Emergency r [place] 27 l [facility] 2014-01-14 2014-01-14 EC nullFlavo [facility] [id number] 675 Memoria 02:58:00 07:26:00 Emergency r [place] 26 l [facility] 2013-11-27 2013-11-27 Lab Report nullFlavo [facility] 1722 [id number] Memoria 00:00:00 00:00:00 r Markus [id number] l [facility] [place] 2013-11-22 2013-11-22 EC nullFlavo [facility] [id number] 675 Memoria 15:32:00 16:37:00 Emergency r Markus 25 l [facility] 2013-11-19 2013-11-19 Emergency E OEI, [facility] [id number] 22 [place] 10:08:00 12:55:[address] [facility] 2013-08-05 2013-08-05 Office nullFlavo [facility] 47587 13055 Memoria 00:00:00 00:00:00 Visit r [facility] 745653 l [facility] Results Test Description Test Time Test [...] (test code = 347) 11 U/L 6-55 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 Mechanic ID - MANUEL GBASIC METABOLIC [id number] 06:58:00 Test Item Value Reference Range Interpretation [...] S NOT APPLICABLE FOR DIALYSIS PATIEN TS. 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 Mechanic ID - MANUEL [id number] 06:58:00 Test Item Value Reference Range Interpretation Comments MAGNESIUM (BEAKER) (test code = 1.5 mg/dL 1.6-2.6 L 627) 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 Mechanic ID - MANUEL [id number] 06:58:00 Test Item Value Reference Range Interpretation Comments PHOSPHORUS (BEAKER) (test code = 3.5 mg/dL 2.3-4.7 604) 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 Mechanic ID - MANUEL GCBC W/PLT COUNT & AUTO [id number] 06:26:41 Test Item Value Reference Range Interpretation [...] (BEAKER) (test code = 2801) HEPATIC FUNCTION [id number] 04:16:08 Test Item Value Reference Range Interpretation [...] (test code = 15 U/L 6-55 347) 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 Mechanic ID - LILIANYURI [id number] 04:16:07 Test Item Value Reference Range Interpretation Comments MAGNESIUM (BEAKER) (test code = 1.9 mg/dL 1.6-2.6 627) 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 Mechanic ID - GEGE [id number] 04:16:07 Test Item Value Reference Range Interpretation Comments PHOSPHORUS (BEAKER) (test code = 1.9 mg/dL 2.3-4.7 L 604) 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 Mechanic ID - LILIANYURI LBASIC METABOLIC [id number] 04:16:06 Test Item Value Reference Range Interpretation [...] S NOT APPLICABLE FOR DIALYSIS PATIEN TS. 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 Mechanic ID - PIAYA LCBC W/PLT COUNT & AUTO [id number] 04:02:29 Test Item Value Reference Range Interpretation [...] 2801) FL, UGI, AIR CONTRAST, WITH SMALL [id number] 17:07:00Reason for exam:- >Bowel obstruction on OSH CT [facility] 1970 Sex: [...] Billings MDReportVerified Date/Time: 09/08/2021 17:07:54 Reading Location: [facility] B1 C013X Ortho Consult Reading Room SARS-COV2/RT-PCR ([facility])2021-09-08 07:53:42 Test Item Value Reference Range Interpretation Comments SARS-COV2/RT-PCR Negative Negative The SARS-Co V-2 target (test code = nucleic acids a re not [id number]) detected in thi s specimen. Negative result [...] revoked sooner. Fact Sheet for Healthcare Providers: https://www.[employer]mail Systems/Documents/Xpert%20Xpress%20SARS%20CoV-2/Fact%20Sheets/829-8512%20SARS-COV -2%20HEALTHCARE%20PROVIDERS%20FACT%20SHEET.pdf Fact Sheet for Healthcare Patients: https://www.MiCarga.Kirusa/Documents/Xpert %20Xpress%20SARS%20CoV-2/Fact%20Sheets/3023801%33GABK-PZO-5%20PATIENT%20FACT%20 SHEET.pdfBASIC METABOLIC [id number] 06:44:32 Test Item Value Reference Range Interpretation [...] S NOT APPLICABLE FOR DIALYSIS PATIEN TS. 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 Mechanic ID - WILBUR [id number] 06:38:30 Test Item Value Reference Range Interpretation Comments PARTIAL THROMBOPLASTIN TIME 35.7 seconds 22.5-36.0 (BEAKER) (test code = 760) PROTHROMBIN TIME/[id number] 06:37:27 Test Item Value Reference Range Interpretation Comments PROTIME (BEAKER) 13.1 seconds 11.9-14.2 (test code = 759) INR (BEAKER) (test 1.01 See_Comment [Automat ed message] code = 370) The system Easel generated this result transmitted ref erence range: [...] code = 2801) RAD, ABDOMEN/KUB, 1 VIEW [id number] 05:29:00Reason for exam:->c/f SBO [facility] : 1970 Sex: FFINAL REPORT TECHNIQUE: Supine views of the abdomen. INDICATION: c/f SBO. COMPARISON: 11/07/2018. FINDINGS/IMPRESSION:Upper abdomen is not entirely included within the mxajd-ms-koqb. Bowel gas pattern is nonobstructive. Status post cholecystectomy. A thecal pump catheter device overlies the right hemiabdomen. No acute osseous abnormality. Signed: Kehinde [facility] Verified Date/Time: 09/08/2021 05:29:42 CT, EXTREMITY, LOWER, WITHOUT IV CONTRAST, [id number] 14:21:00Unlisted Reason for Exam - Click Yes and Enter Reason Below->YesUnlisted Reason for Exam->avascular necrosis, medial femoral condyle, right knee [facility] : 1970 Sex: [...] distal femur andproximal tibia. Signed: Cody Leon MDReport Verified Date/Time: 09/01/2021 14:21:30 Reading Location: [facility] Reading Room [address] [place] [address] calcium [id number] 07:56:00 Test Item Value Reference Range Interpretation Comments calcium level (test code = calcium 8.5 mg/dL 8.6-10.0 L level) [facility] [Mass/volume] in Serum or [id number] 00:00:00 Test Item Value Reference Range Interpretation Comments Urea nitrogen [Mass/volume] in Serum 13 mg/dL 6-20 or Plasma (test code = 3094-0) [facility] kinase [Enzymatic activity/volume] in Serum or [id number] 00:00:00 Test Item Value Reference Range Interpretation Comments creatine kinase (test code = creatine 58 U/L 20-180 kinase) [facility] HospitalComprehensive metabolic 2000 panel - Serum or [...] Serum or Plasma (test code = 6768-6) [facility] HospitalMagnesium [Moles/volume] in [id number] 00:00:00 Test Item Value Reference Range Interpretation Comments magnesium level (test code = 2.0 mg/dL 1.6-2.6 magnesium level) [facility] HospitalCT, [id number] 09:35:00To investigate for possible anastomotic stricture and small/large bowel crohn's diseaseUnlisted Reason for Exam - Click Yes and Enter Reason Below->NoIs this for enterography?- >YesWill this procedure require oral contrast?->Yes [facility] CENTERName: LAURA DEL TORO : [...] [place] Verified Date/Time: 07/07/2021 09:35:01 Reading Location: [facility] Diagnostic Imaging Reading Room - [place] [address] [id number] 05:46:30 Test Item Value Reference Range Interpretation Comments MAGNESIUM (BEAKER) (test code = 1.9 mg/dL 1.6-2.6 627) 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 Mechanic ID - WILBUR MCBC W/PLT COUNT & AUTO [id number] 05:10:15 Test Item Value Reference Range Interpretation [...] PERCENT (BEAKER) (test code = 2801) FECAL [id number] 20:11:55 Test Item Value Reference Range Interpretation Comments FECAL LEUKOCYTES No fecal leukocytes No fecal leukocytes (BEAKER) (test code = seen seen 992) GI PATHOGEN PROFILE BY [id number] 14:51:41 Test Item Value Reference Range Interpretation Comments CAMPYLOBACTER (PCR) (test code = Not detected Not detected 6974581) PLESIOMONAS SHIGELLOIDES (PCR) Not detected Not detected (test code = 20151107) SALMONELLA (PCR) (test code = Not detected Not detected ) YERSINIA ENTEROCOLITICA (PCR) Not detected Not detected (test code = 6749448) VIBRIO CHOLERAE (PCR) (test code Not detected Not detected = 8187641) ENTEROAGGREGATIVE E. COLI (EAEC) Not detected Not detected BY PCR (test code = 1599333) ENTEROPATHOGENIC E. COLI (EPEC) Not detected Not detected BY PCR (test code = 9430904) ENTEROTOXIGENIC E. COLI (ETEC) Not detected Not detected LT/ST BY PCR (test code = 8083389) SHIGA-LIKE TOXIN-PRODUCING E. Not detected Not detected COLI (STEC) STX1/STX2 (test code = 8256018) E. COLI O157 (PCR) (test code = 8047168) SHIGELLA/ENTEROINVASIVE E. COLI Not detected Not detected (EIEC) BY PCR (test code = 9356335) CRYPTOSPORIDIUM (PCR) (test code Not detected Not detected = 20151208) CYCLOSPORA CAYETANENSIS (PCR) Not detected Not detected (test code = 2009065) ENTAMOEBA HISTOLYTICA (PCR) Not detected Not detected [...] Not detected Not detected (test code = 2917085) VIBRIO (PARAHAEMOLYTICUS, Not detected Not detected VULNIFICUS) [...] decisions. This sample was tested at the [facility] Molecular Diagnostics Laboratory using the Multifonds Gastrointestinal Panel. It is FDA cleared and has been verified and approved by the [facility] Molecular Diagnostics Laboratory for clinical use. This laboratory is CLIA-certified and College ofAmerican Pathologists (CAP)-accredited to perform high complexity testing.C. DIFFICILE GDH [id number] 13:13:04 Test Item Value Reference Range Interpretation Comments CDT TOXIN (test code Negative Negative = 6487183144) CDT GDH ANTIGEN Positive Negative A C. difficile present but (test code = toxin not detec francine. [id number]) Indicates colon ization with non-toxige barber strain or level of tox in below detectable leve ls. No need for enteri c isolation. Darryn atment is rarely needed ( only when strong clinical suspicion for Clostridium difficile infection) Testing performed by Player X Rapid Cassette Assay. For GDH, published sensitivity of the assay is 98.7% compared to cytotoxicity testing. For Toxin AB, published sensitivity is 87.8% and specificity 99.4% compared to cytotoxicity testing.Verification of kit performance was done by the [facility] Microbiology Lab prior to clinical use.[id number] 05:29:55 Test Item Value Reference Range Interpretation Comments MAGNESIUM (BEAKER) (test code = 2.1 mg/dL 1.6-2.6 627) 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 Mechanic ID - DEREK WC-REACTIVE [id number] 05:29:55 Test Item Value Reference Range Interpretation Comments C-REACTIVE PROTEIN (BEAKER) (test 0.49 mg/dL 0.00-0.50 code = 676) 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 Mechanic ID - DEREK WBASIC METABOLIC [id number] 05:29:54 Test Item Value Reference Range Interpretation [...] S NOT APPLICABLE FOR DIALYSIS PATIEN TS. 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 Mechanic ID - DEREK WCBC W/PLT COUNT & AUTO [id number] 04:52:13 Test Item Value Reference Range Interpretation [...] PERCENT (BEAKER) (test code = 2801) SARS-COV2/RT-PCR ([facility])2021-07-05 20:54:21 Test Item Value Reference Range Interpretation Comments SARS-COV2/RT-PCR (test code = Negative Negative 3085461) Negative result for this test determines that [...] 564(g) of the Act.Testing was performedusing the Immunexpress SARS-CoV-2 assay.Fact Sheet for Healthcare Providers:https://www.molecular.fleming/gregg/RT SARS-CoV-2 HCP Fact Sheet 51- 878291.pdfFact Sheet for Healthcare Patients:https://www.Daric.fleming/gregg/RT SARS-CoV-2 Patient Fact Sheet EN 51-168137D1.[id number] 15:30:09 Test Item Value Reference Range Interpretation Comments MAGNESIUM (BEAKER) (test code = 2.2 mg/dL 1.6-2.6 627) 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 Mechanic ID - ADMINBASIC METABOLIC [id number] 15:30:08 Test Item Value Reference Range Interpretation [...] S NOT APPLICABLE FOR DIALYSIS PATIEN TS. 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 Mechanic ID - ADMINCBC W/PLT COUNT & AUTO [id number] 15:16:06 Test Item Value Reference Range Interpretation [...] PERCENT (BEAKER) (test code = 2801) TISSUE [id number] 13:54:10Surgical Pathology Report Case: [id number] Authorizing Provider: April Mock MD Collected: 07/02/2021 12:46 PM Ordering Location: [facility] Received: 07/02/2021 03:47 PM SERVICES Pathologist: Ly Cortez MD Specimen: Biopsy, Terminal Ileum, yared terminal ileum bx for Crohn's disease activity A. TERMINAL ILEUM, BIOPSY: - ILEAL MUCOSA WITH PRESERVED VILLOUS ARCHITECTURE AND FRAGMENT OF COLONIC MUCOSA - NO SIGNIFICANT HISTOPATHOLOGICAL CHANGE - NO ACTIVE INFLAMMATION, FEATURES OF CHRONIC COLITIS OR GRANULOMA NOTED SJ/pl Signing Pathologist Direct Phone Line: [phone] signed by Ly Cortez MD on 07/05/2021 at 1:54 PMEndoscopic report reviewed. Negative for viral cytopathiceffects or dysplasia. [address] t3Ylsgr's disease of both small and large intestine without complicationA. Biopsy, terminal ileum, neoterminal ileumA. Received in formalin labeled with the patient's name, medical record number and "terminal ileum BX" and consists of pieces of rodriguez-pink soft tissue measuring 0.3 x 0.3 x 0.2 cm and 0.4 x 0.3 x 0.2 cm. The specimen is submitted in toto in A1.KHHPerformed [facility], Department of [facility]ology, [address] [place] [address], [id number], [facility] of [facility], [address] [place] [address], WdmqluHayward [facility], Department of Pathology, [address] [place] [address], EZFG-CoV-2 (COVID-19) RNA [Presence] in Respiratory specimen by JULISSA with probe detection 2021-06-29 00:00:00 Test Item Value Reference Range Interpretation Comments SARS-CoV-2 (COVID-19) RNA not detected not detected [Presence] in Respiratory specimen by JULISSA with probe detection (test code = 44291-9) sars-cov-2, JULISSA 2 day tat (test performed code = sars-cov-2, JULISSA 2 day tat) [facility] RNA [Presence] in Respiratory specimen by JULISSA with probe [id number] 00:00:00 Test Item Value Reference Range Interpretation Comments SARS-CoV-2 (COVID-19) RNA not detected not detected [Presence] in Respiratory specimen by JULISSA with probe detection (test code = 53708-9) sars-cov-2, JULISSA 2 day tat (test performed code = sars-cov-2, JULISSA 2 day tat) [facility] W Auto Differential panel - [id number] 01:10:00 Test Item Value Reference Range Interpretation Comments white blood count (test code = 8.6 K/uL 4.0-11.5 white blood count) red blood count (test code = red 4.16 M/uL 3.80-5.20 blood count) hemoglobin (test code = 12.5 g/dL 10.5-15.7 hemoglobin) hematocrit (test code = 40.0 % 34.0-50.0 hematocrit) MCV [Entitic volume] (test code = 96.2 fL 86.0-100.0 48815-0) mean corpuscular hemoglobin (test 30.0 pg 26.2-33.4 [...] 44.4-80.1 leukocytes in Blood (test code = 97805-7) Immature granulocytes [#/volume] 0.03 K/uL 0.00-0.03 in Blood (test code = 89098-2) lymphocyte% (test code = 33.8 % 10.0-50.0 lymphocyte%) mono % (test code = mono %) 5.8 % 3.6-12.0 eos % (test code = eos %) 8.9 % 0.0-5.4 H Basophils/100 leukocytes in 0.6 % 0.1-1.2 Unspecified specimen (test code = 01229-4) Band form neutrophils [#/volume] 4.36 K/uL 1.56-6.13 in Blood (test code = 47506-5) Lymphocytes [#/volume] in 2.91 K/uL 1.18-3.74 Unspecified specimen by Automated count (test code = 28299-8) mono # (test code = mono #) 0.50 K/uL 0.24-0.86 eos # (test code = eos #) 0.77 K/uL 0.04-0.36 H basophil # (test code = basophil 0.05 K/uL 0.01-0.08 #) NRBC% (test code = NRBC%) 0 /100 WBC 0-0.2 NRBC# (test code = NRBC#) 0 K/uL [facility] - Serum or [...] Serum or Plasma (test code = 6768-6) [facility] W Auto Differential panel - [id number] 01:10:00 Test Item Value Reference Range Interpretation Comments white blood count (test code = 8.6 K/uL 4.0-11.5 white blood count) red blood count (test code = red 4.16 M/uL 3.80-5.20 blood count) hemoglobin (test code = 12.5 g/dL 10.5-15.7 hemoglobin) hematocrit (test code = 40.0 % 34.0-50.0 hematocrit) MCV [Entitic volume] (test code = 96.2 fL 86.0-100.0 67925-8) mean corpuscular hemoglobin (test 30.0 pg 26.2-33.4 [...] 44.4-80.1 leukocytes in Blood (test code = 65337-6) Immature granulocytes [#/volume] 0.03 K/uL 0.00-0.03 in Blood (test code = 65401-3) lymphocyte% (test code = 33.8 % 10.0-50.0 lymphocyte%) mono % (test code = mono %) 5.8 % 3.6-12.0 eos % (test code = eos %) 8.9 % 0.0-5.4 H Basophils/100 leukocytes in 0.6 % 0.1-1.2 Specimen (test code = 66176-4) Band form neutrophils [#/volume] 4.36 K/uL 1.56-6.13 in Blood (test code = 66577-4) Lymphocytes [#/volume] in Specimen 2.91 K/uL 1.18-3.74 by Automated count (test code = 14756-5) mono # (test code = mono #) 0.50 K/uL 0.24-0.86 eos # (test code = eos #) 0.77 K/uL 0.04-0.36 H basophil # (test code = basophil 0.05 K/uL 0.01-0.08 #) NRBC% (test code = NRBC%) 0 /100 WBC 0-0.2 NRBC# (test code = NRBC#) 0 K/uL [facility] - Serum or [...] or Plasma (test code = 6768-6) [facility] and [id number] 16:26:00 Test Item Value Reference Range Interpretation Comments ABO grouping (test code = 883-9) A Rh type (test code = 68814-9) POS [facility] and [id number] 16:26:00 Test Item Value Reference Range Interpretation Comments ABO grouping (test code = 883-9) A Rh type (test code = 70068-3) [facility] and [id number] 16:26:00 Test Item Value Reference Range Interpretation Comments ABO grouping (test code = 883-9) A Rh type (test code = 64132-2) [facility] and [id number] 16:26:00 Test Item Value Reference Range Interpretation Comments ABO grouping (test code = 883-9) A Rh type (test code = 46381-1) [facility] [id number] 15:29:03 Test Item Value Reference Range Interpretation Comments POC glucose (test 78 mg/dL 65-99 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 Mechanic N kaitlyn: Barsales code = 16518-6) ThelmaDevice ID: [id number] [facility] [id number] 15:29:03 Test Item Value Reference Range Interpretation Comments POC glucose (test 78 mg/dL 65-99 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 Mechanic N kaitlyn: Barsales code = 28306-1) ThelmaDevice ID: [id number] [facility] [id number] 15:29:03 Test Item Value Reference Range Interpretation Comments POC glucose (test 78 mg/dL 65-99 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 Mechanic N kaitlyn: Barsales code = 64822-9) ThelmaDevice ID: [id number] [facility] [id number] 15:29:03 Test Item Value Reference Range Interpretation Comments POC glucose (test 78 mg/dL 65-99 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 Mechanic N kaitlyn: Barsales code = 10393-8) ThelmaDevice ID: [id number] [facility] RNA [Presence] in Respiratory specimen by JULISSA with probe [id number] 05:00:23 Test Item Value Reference Range Interpretation Comments SARS-CoV-2 (COVID-19) RNA Not detected Not-Detected [Presence] in Respiratory specimen by JULISSA with probe detection (test code = 47031-4) ECG Pre/Post [id number] 22:21:44 Test Item Value Reference Range Interpretation Comments Ventricular rate (test code = 253) Atrial rate (test code = 255) ID interval (test code = 266) QRSD interval [...] Beaulieu MD (2019) on 05/06/2021 4:21:39 PM [facility] Pre/Post [id number] 22:21:44 Test Item Value Reference Range Interpretation Comments Ventricular rate (test code = 253) Atrial rate (test code = 255) ID interval (test code = 266) QRSD interval [...] Beaulieu MD (2019) on 05/06/2021 4:21:39 PM [facility] Pre/Post [id number] 22:21:44 Test Item Value Reference Range Interpretation Comments Ventricular rate (test code = 253) Atrial rate (test code = 255) ID interval (test code = 266) QRSD interval [...] Beaulieu MD (2019) on 05/06/2021 4:21:39 PM [facility] Pre/Post [id number] 22:21:44 Test Item Value Reference Range Interpretation Comments Ventricular rate (test code = 253) Atrial rate (test code = 255) ID interval (test code = 266) QRSD interval [...] Beaulieu MD (2019) on 05/06/2021 4:21:39 PM [facility] and [id number] 19:32:00 Test Item Value Reference Range Interpretation Comments ABO grouping (test code = 883-9) A Rh type (test code = 53879-5) POS Antibody screen (gel) (test code = NEG 890-4) [facility] and [id number] 19:32:00 Test Item Value Reference Range Interpretation Comments ABO grouping (test code = 883-9) A Rh type (test code = 02768-7) POS Antibody screen (gel) (test code = NEG 890-4) [facility] and [id number] 19:32:00 Test Item Value Reference Range Interpretation Comments ABO grouping (test code = 883-9) A Rh type (test code = 67940-5) POS Antibody screen (gel) (test code = NEG 890-4) [facility] [id number] 19:32:00 Test Item Value Reference Range Interpretation Comments ABO grouping (test code = 883-9) A Rh type (test code = 31726-1) POS Antibody screen (gel) (test code = NEG 890-4) [facility], LOWER, JOINT, WITHOUT IV CONTRAST, RIGHT 2021-05-04 09:55:00Unlisted Reason for Exam - Click Yes and Enter Reason Below- >YesUnlisted Reason for Exam->avascular necrosis [facility] CENTERName: LAURA DEL TORO : [...] MDReport Verified Date/Time: 05/04/2021 09:55:28 Reading Location: [facility] Reading Room [address] [place] [address] , NON-TUNNELED CATH/PICC >5 Y.O. WITH [id number] 13:44:00Reason for Exam:->home iv antibiotics [facility] : 1970 Sex: FFINAL REPORT Right upper extremity PICC insertion. History: Need for long-term IV antibiotics. Opal Miner: Dayne Gaines MD. Solar Crew Member: None. Modality: Sonography and fluoroscopy. Sedation: None. [...] needle into the right atrium. A 5 [place]guillan peel-away sheath was placed. The 5 [place] double-lumen PICC line was measured and cut [...] MDReport Verified Date/Time: 05/03/2021 13:44:35 Reading Location: [place] [address] Angio Body Reading Room PV-OsL-4 (COVID-19) RNA [Presence] in Respiratory specimen by JULISSA with probe detection 2021-04-28 03:30:1925659-5[facility] Medical GroupCOMPREHENSIVE METABOLIC PANEL 2021-01-20 14:28:17 Test Item Value Reference Range Interpretation Comments GLUCOSE (test code = See_Comment [Autom ated message] The 9965-7) system which ge nerated this result tra [...] code = See_Comment [Autom ated message] The 98542-3) system which ge nerated this result tra nsmitted reference range : >60 ML/MIN/1.73. Th e reference range was not used to interpr et this result as normal/abnormal . EGFR (test code = See_Comment [Automate d message] The 35971-5) system which ge nerated this result tra [...] code = See_Comment [Autom ated message] The 98270-2) system which ge nerated this result tra [...] code = See_Comment [Autom ated message] The 08043-0) system which ge nerated this result tra nsmitted reference range : 3.5 - 5.2 G/DL. The r eference range was not u sed to interpret this result as normal/abnormal . GLOBULINS, SERUM, TOTAL See_Comment [Au tomated message] The (test code = 76231-6) system which generated this result tra nsmitted [...] At: [facility], [address] [facility], [place] [address] Crystal Growing Technician: Parish espinosa M.D. CHARLES barnes [id number] Cap Accreditation N o. [id number] [facility] [id number] 14:28:17 Test Item Value Reference Range Interpretation [...] code = See_Comment [Autom ated message] The 89713-3) system which ge nerated this result tra nsmitted reference range : >60 ML/MIN/1.73. Th e reference range was not used to interpr et this result as normal/abnormal . EGFR (test code = See_Comment [Automate d message] The 32903-0) system which ge nerated this result tra [...] code = See_Comment [Autom ated message] The 00581-4) system which ge nerated this result tra [...] code = See_Comment [Autom ated message] The 38253-0) system which ge nerated this result tra nsmitted reference range : 3.5 - 5.2 G/DL. The r eference range was not u sed to interpret this result as normal/abnormal . GLOBULINS, SERUM, TOTAL See_Comment [Au tomated message] The (test code = 53817-7) system which generated this result tra nsmitted [...] At: [facility], [address] [facility], [place] [address] Crystal Growing Technician: Parish espinosa M.D. CHARLES Wooten molly [id number] Cap Accreditation [place] o. [id number] [facility]UR[facility] AUT[facility] [id number] 12:27:01 Test Item Value Reference Range Interpretation Comments COLOR UA (test code = DARK YELLOW YELLOW-STRAW A 5778-6) CLARITY UA (test code CLEAR CLEAR = 5767-9) SPECIFIC GRAVITY UA (NOTE) 1.005-1.035 UNABLE (test code = 5811-5) TO DETE RMINE RESULT DUE TO INTERFERENCE FR OM URINE PIGMENT. WBC UA (test code = 0-5 See_Comment [Automa francine message] 68748-7) The system [employer] generated this result transmit francine reference range : 0 - 5 /HPF. The reference range was not used to interpret this result as normal/abnormal . RBC UA (test code = 3-5 See_Comment [Automa francine message] 54361-9) The system [employer] generated this result transmit francine reference range : 0 - 5 /HPF. The reference range was not used to interpret this result as normal/abnormal . EPITHELIAL CELLS (test 0-5 See_Comment [Aut omated message] code = 12156-9) The system [employer] [facility] generated this result transmit frnacine reference range : 0 - 10 /HPF. The reference range was not used to interpret this result as normal/abnormal . BACTERIA (test code = NONE SEEN NONE SEEN 31303-1) CRYSTALS (test code = PRESENT NONE SEEN A 5782-8) CALCIUM OX ALATE CRYSTALS HYALINE CASTS (test NONE SEEN NONE-TRACE Unless code = 32042-4) Otherwise In dicated, All Testing Performed At: [facility], [address] [facility], [place] [address] Laboratory Dire ctor: Parish espinosa M.D. CLI A Number [id number] Cap Accreditati on No. Lab Interpretation Abnormal (test code = 03016-0) [facility] [id number] 12:27:01 Test Item Value Reference Range Interpretation Comments COLOR UA (test code = DARK YELLOW YELLOW-STRAW A 5778-6) CLARITY UA (test code CLEAR CLEAR = 5767-9) SPECIFIC GRAVITY UA (NOTE) 1.005-1.035 UNABLE (test code = 5811-5) TO DETE RMINE RESULT DUE TO INTERFERENCE FR OM URINE PIGMENT. WBC UA (test code = 0-5 See_Comment [Automa francine message] 25889-8) The system [employer] generated this result transmit francine reference range : 0 - 5 /HPF. The reference range was not used to interpret this result as normal/abnormal . RBC UA (test code = 3-5 See_Comment [Automa francine message] 79699-2) The system [employer] generated this result transmit francine reference range : 0 - 5 /HPF. The reference range was not used to interpret this result as normal/abnormal . EPITHELIAL CELLS (test 0-5 See_Comment [Aut omated message] code = 94259-9) The system [employer] generated this result transmit francine reference range : 0 - 10 /HPF. The reference range was not used to interpret this result as normal/abnormal . BACTERIA (test code = NONE SEEN NONE SEEN 04843-6) CRYSTALS (test code = PRESENT NONE SEEN A 5782-8) CALCIUM OX ALATE CRYSTALS HYALINE CASTS (test NONE SEEN NONE-TRACE Unless code = 87880-5) Otherwise In dicated, All Testing Performed At: [facility], [address] [facility] [place] [address] Laboratory Dire ctor: Parish espinosa M.D. CLI A Number [id number] Cap Accreditati on No. Lab Interpretation Abnormal (test code = 16875-6) [facility] W/AUTO DIFF WITH [id number] 09:34:22 Test Item Value Reference Range Interpretation Comments WHITE BLOOD CELL COUNT See_Comment [Aut omated message] (test code = 65933-3) The sy stem which generated this result transmitted ref erence range: 3.5 - 11 .0 K/UL. The reference r markus was not used to int erpret this result as normal/abnormal . RED BLOOD CELL COUNT See_Comment [Autom ated message] (test code = 49096-4) The sy stem which generated this result [...] HEMATOCRIT (test code = 42.0 % 34.0-45.0 16076-0) MEAN CORPUSCULAR VOLUME 94.8 fL 80.0-99.0 (test code = 08124-9) MEAN CORPUSCULAR 31.4 PG 25.0-33.0 HEMOGLOBIN (test code = 83229-6) MEAN CORPUSCULAR See_Comment [Automated message] HEMOGLOBIN CONC (test The sy stem which code = 77021-5) generated th is result transmitted ref erence range: 31 - 36 G/DL. The reference r markus was not used to int erpret this result as normal/abnormal . RED CELL DISTRIBUTION 11.8 % 11.5-15.0 WIDTH (test code = 73210-6) NEUTROPHILS % (test 66.2 % 40.0-75.0 code = 92297-8) LYMPHOCYTES % (test 25.8 % 20.0-45.0 code = 63513-8) MONOCYTES % (test code 5.6 % 4.0-12.0 = 27467-0) EOSINOPHILS % (test 1.9 % 0.0-7.0 code = 18925-5) BASOPHILS % (test code 0.3 % 0.0-2.0 = 93979-4) IMMATURE GRANULOCYTES 0.2 % 0.0-1.0 (test code = 32940-0) NUCLEATED RBC'S See_Comment Unl ess MYELOPEROX STAIN (test Other cuevas Indicated, code = 09238-9) All Testing Performed At: [facility], [address] [facility], [place] [address] Laboratory Dire ctor: Parish espinosa M.D. CLIA Numb er [id number] Cap Accreditation N o. [id number] [Auto mated message] The sy stem which generated this result transmit francine reference range : 0.00 - 0.11 K/UL. The reference range was not used to interpr et this result as normal/abnormal . PLATELET COUNT (test See_Comment [Autom ated message] code = 80641-7) The system w hich generated this result transmitted ref erence range: 130 - 40 0 K/UL. The reference r markus was not used to int erpret this result as normal/abnormal . NEUTROPHILS ABSOLUTE See_Comment [Autom ated message] COUNT (test code = The syste m which 75370-7) generated this result transmitted ref erence range: 1.50 - 7 .50 K/UL. The refer ence range was not u sed to interpret this result as normal/abnor mal. LYMPHOCYTES ABSOLUTE See_Comment [Autom ated message] COUNT (test code = The syste m which 02967-9) generated this result transmitted ref erence range: 1.00 - 4 .00 K/UL. The refer ence range was not u sed to interpret this result as normal/abnor mal. MONOCYTES ABSOLUTE See_Comment [Automat ed message] COUNT (test code = The syste m which 38171-9) generated this result transmitted ref erence range: 0.20 - 1 .00 K/UL. The refer ence range was not u sed to interpret this result as normal/abnor mal. BASOPHILS ABSOLUTE See_Comment [Automat ed message] COUNT (test code = The syste m which 80981-0) generated this result transmitted ref erence range: [...] to interpret this result as normal/abnor mal. [facility] W/AUTO DIFF WITH [id number] 09:34:22 Test Item Value Reference Range Interpretation Comments WHITE BLOOD CELL COUNT See_Comment [Aut omated message] (test code = 55784-1) The sy stem which generated this result transmitted ref erence range: 3.5 - 11 .0 K/UL. The reference r markus was not used to int erpret this result as normal/abnormal . RED BLOOD CELL COUNT See_Comment [Autom ated message] (test code = 59903-3) The sy stem which generated this result [...] HEMATOCRIT (test code = 42.0 % 34.0-45.0 18834-1) MEAN CORPUSCULAR VOLUME 94.8 fL 80.0-99.0 (test code = 95092-6) MEAN CORPUSCULAR 31.4 PG 25.0-33.0 HEMOGLOBIN (test code = 74063-5) MEAN CORPUSCULAR See_Comment [Automated message] HEMOGLOBIN CONC (test The sy stem which code = 63001-0) generated th is result transmitted ref erence range: 31 - 36 G/DL. The reference r markus was not used to int erpret this result as normal/abnormal . RED CELL DISTRIBUTION 11.8 % 11.5-15.0 WIDTH (test code = 76511-7) NEUTROPHILS % (test 66.2 % 40.0-75.0 code = 43540-6) LYMPHOCYTES % (test 25.8 % 20.0-45.0 code = 04373-3) MONOCYTES % (test code 5.6 % 4.0-12.0 = 78319-2) EOSINOPHILS % (test 1.9 % 0.0-7.0 code = 21809-1) BASOPHILS % (test code 0.3 % 0.0-2.0 = 93615-5) IMMATURE GRANULOCYTES 0.2 % 0.0-1.0 (test code = 22018-5) NUCLEATED RBC'S See_Comment Unl ess MYELOPEROX STAIN (test Other cuevas Indicated, code = 09871-0) All Testing Performed At: [facility] Labor [facility], [address] [place] [address] Laboratory Dire ctor: Parish espinosa M.D. CLIA Numb er [id number] Cap Accreditation N o. [id number] [Auto mated message] The sy stem which generated this result transmit francine reference range : 0.00 - 0.11 K/UL. The reference range was not used to interpr et this result as normal/abnormal . PLATELET COUNT (test See_Comment [Autom ated message] code = 78708-0) The system w hich generated this result transmitted ref erence range: 130 - 40 0 K/UL. The reference r markus was not used to int erpret this result as normal/abnormal . NEUTROPHILS ABSOLUTE See_Comment [Autom ated message] COUNT (test code = The syste m which 15887-7) generated this result transmitted ref erence range: 1.50 - 7 .50 K/UL. The refer ence range was not u sed to interpret this result as normal/abnor mal. LYMPHOCYTES ABSOLUTE See_Comment [Autom ated message] COUNT (test code = The syste m which 42640-5) generated this result transmitted ref erence range: 1.00 - 4 .00 K/UL. The refer ence range was not u sed to interpret this result as normal/abnor mal. MONOCYTES ABSOLUTE See_Comment [Automat ed message] COUNT (test code = The syste m which 60666-5) generated this result transmitted ref erence range: 0.20 - 1 .00 K/UL. The refer ence range was not u sed to interpret this result as normal/abnor mal. BASOPHILS ABSOLUTE See_Comment [Automat ed message] COUNT (test code = The syste m which 98066-3) generated this result transmitted ref erence range: [...] to interpret this result as normal/abnor mal. [facility] U[facility] by [id number] 12:05:00Bacteria [facility], [id number] 12:05:00 Test Item Value Reference Range Interpretation [...] Minimum inhibitory concentration (VIVIENNE) (test code = 76986-7) cefTAZidime [Susceptibility] by <=2 Minimum inhibitory concentration (VIVIENNE) (test code = 133-9) cefTRIAXone [Susceptibility] by <=1 Minimum inhibitory concentration (VIVIENNE) (test code = 141-2) Ciprofloxacin [Susceptibility] by >2 Minimum inhibitory concentration (VIVIENNE) (test code = 185-9) Ampicillin+Sulbactam =16/8 [Susceptibility] by Minimum inhibitory concentration (VIVIENNE) (test code = 32-3) Ertapenem [Susceptibility] by <=0.25 Minimum inhibitory concentration (VIVIENNE) (test code = 50622-6) Aztreonam [Susceptibility] by <=2 Minimum inhibitory concentration (VIVIENNE) (test code = 44-8) Cefepime [Susceptibility] by <=1 Minimum inhibitory concentration (VIVIENNE) (test code = 6644-9) Meropenem [Susceptibility] by <=0.5 Minimum inhibitory concentration (VIVIENNE) (test code = 6652-2) Moxifloxacin [Susceptibility] by >4 Minimum inhibitory concentration (VIVIENNE) (test code = 39288-5) Amikacin [Susceptibility] by <=8 Minimum inhibitory concentration (VIVIENNE) (test code = 12-5) Piperacillin+Tazobactam =64/4 [Susceptibility] by Minimum inhibitory concentration (VIVIENNE) (test code = 412-7) Ceftaroline [Susceptibility] by 0.5 ug/mL Minimum inhibitory concentration (VIVIENNE) (test code = 49486-9) Tigecycline [Susceptibility] by <=1 Minimum inhibitory concentration (VIVIENNE) (test code = 62067-6) [facility] HospitalUrinalysis macro (dipstick) panel - [id number] 14:46:00 Test Item Value Reference Range Interpretation Comments Leukocytes (test code = Leukocytes) Large Nitrite (test code = Nitrite) positive Urobilinogen (test code = 8 Urobilinogen) Protein (test code = Protein) 100 pH (test code = pH) 7.0 Blood (test code = Blood) Negative Specific [place] (test code = 1.020 Specific [place]) Ketone (test code = Ketone) Small Bilirubin (test code = Bilirubin) Moderate Glucose (test code = Glucose) 250 Appearance (test code = Appearance) Turbid Color (test code = Color) Red [facility] HospitalBacteria identified in Urine by [id number] 06:29:00Bacteria Ur [facility], atubxst7208-10-23 06:29:00 Test Item Value Reference Range Interpretation [...] Minimum inhibitory concentration (VIVIENNE) (test code = 91533-9) Ciprofloxacin [Susceptibility] by <1 Minimum inhibitory concentration (VIVIENNE) (test code = 185-9) Linezolid [Susceptibility] by Minimum <2 inhibitory concentration (VIVIENNE) (test code = 11326-5) DAPTOmycin [Susceptibility] by <1 Minimum inhibitory concentration (VIVIENNE) (test code = 71613-2) [facility] HospitalUrinalysis macro (dipstick) panel - [id number] 15:20:00 Test Item Value Reference Range Interpretation Comments Leukocytes (test code = Leukocytes) Negative Nitrite (test code = Nitrite) positive Urobilinogen (test code = 1 Urobilinogen) Protein (test code = Protein) Trace pH (test code = pH) 7.0 Blood (test code = Blood) Negative Specific [place] (test code = 1.015 Specific [place]) Ketone (test code = Ketone) Negative Bilirubin (test code = Bilirubin) Small Glucose (test code = Glucose) 100 Appearance (test code = Appearance) Cloudy Color (test code = Color) Yellow [facility] HospitalUrinalysis macro (dipstick) panel - [id number] 12:11:00 Test Item Value Reference Range Interpretation Comments Leukocytes (test code = Leukocytes) Large Nitrite (test code = Nitrite) positive Urobilinogen (test code = 2 Urobilinogen) Protein (test code = Protein) 30 pH (test code = pH) 6.0 Blood (test code = Blood) Negative Specific [place] (test code = 1.010 Specific [place]) Ketone (test code = Ketone) Trace Bilirubin (test code = Bilirubin) Small Glucose (test code = Glucose) 100 Appearance (test code = Appearance) Cloudy Color (test code = Color) [place] [facility] HospitalUrinalysis macro (dipstick) panel - [id number] 12:11:00 Test Item Value Reference Range Interpretation Comments Leukocytes (test code = Leukocytes) Large Nitrite (test code = Nitrite) positive Urobilinogen (test code = 2 Urobilinogen) Protein (test code = Protein) 30 pH (test code = pH) 6.0 Blood (test code = Blood) Negative Specific [place] (test code = 1.010 Specific [place]) Ketone (test code = Ketone) Trace Bilirubin (test code = Bilirubin) Small Glucose (test code = Glucose) 100 Appearance (test code = Appearance) Cloudy Color (test code = Color) [place] [facility] HospitalUrinalysis macro (dipstick) panel - [id number] 12:11:00 Test Item Value Reference Range Interpretation Comments Leukocytes (test code = Leukocytes) Large Nitrite (test code = Nitrite) positive Urobilinogen (test code = 2 Urobilinogen) Protein (test code = Protein) 30 pH (test code = pH) 6.0 Blood (test code = Blood) Negative Specific [place] (test code = 1.010 Specific [place]) Ketone (test code = Ketone) Trace Bilirubin (test code = Bilirubin) Small Glucose (test code = Glucose) 100 Appearance (test code = Appearance) Cloudy Color (test code = Color) [place] [facility] HospitalBacteria identified in Urine by [id number] 10:44:00 Test Item Value Reference Range Interpretation Comments Bacteria identified in no growth at 2 days Urine by Culture (test code = 630-4) [facility] HospitalMR, PELVIS, WITHOUT / WITH IV [id number] 10:43:00 Please order enterography protocol to assess the small bowel for Crohn's diseaseMRI ENTEROGRAPHY (SMALL BOWEL EVALUATION)Unlisted Reason for Exam - Click Yes and Enter Reason Below->YesUnlisted Reason for Exam->Crohn's disease of both small and large intestine without complication (HCCode) (K50.80) [facility] 1970 Sex: [...] MDReport Verified Date/Time: 11/23/2020 10:43:40 Reading Location: [facility] Diagnostic Imaging Reading Room - [place] [id number] MR, ABDOMEN, WITHOUT / WITH IV CONTRAST 2020-11-23 10:43:00Please order enterography protocol to assess the small bowel for Crohn's diseaseMRI ENTEROGRAPHY (SMALL BOWEL EVALUATION)Unlisted Reason for Exam - Click Yes and Enter Reason Below->YesUnlisted Reason for Exam- >Crohn's disease of both small and large intestine without complication (HCCode) (K50.80)[facility] : 1970 Sex: FFINAL [...] MDReport Verified Date/Time: 11/23/2020 10:43:40 Reading Location: [facility] Diagnostic Imaging Reading Room - [place] [id number] Urinalysis macro (dipstick) panel - Urine 2020-11-17 14:29:00 Test Item Value Reference Range Interpretation Comments Leukocytes (test code = Negative Leukocytes) Nitrite (test code = Nitrite) positive Urobilinogen (test code = .2 Urobilinogen) Protein (test code = Protein) Negative pH (test code = pH) 7.0 Blood (test code = Blood) Negative Specific [place] (test code = 1.025 Specific [place]) Ketone (test code = Ketone) Negative Bilirubin (test code = Bilirubin) Negative Glucose (test code = Glucose) Negative Appearance (test code = Cloudy Appearance) Color (test code = Color) Dark Yellow [facility] HospitalUrinalysis macro (dipstick) panel - [id number] 14:29:00 Test Item Value Reference Range Interpretation Comments Leukocytes (test code = Negative Leukocytes) Nitrite (test code = Nitrite) positive Urobilinogen (test code = .2 Urobilinogen) Protein (test code = Protein) Negative pH (test code = pH) 7.0 Blood (test code = Blood) Negative Specific [place] (test code = 1.025 Specific [place]) Ketone (test code = Ketone) Negative Bilirubin (test code = Bilirubin) Negative Glucose (test code = Glucose) Negative Appearance (test code = Cloudy Appearance) Color (test code = Color) Dark Yellow [facility] HospitalUrinalysis macro (dipstick) panel - [id number] 14:29:00 Test Item Value Reference Range Interpretation Comments Leukocytes (test code = Negative Leukocytes) Nitrite (test code = Nitrite) positive Urobilinogen (test code = .2 Urobilinogen) Protein (test code = Protein) Negative pH (test code = pH) 7.0 Blood (test code = Blood) Negative Specific [place] (test code = 1.025 Specific [place]) Ketone (test code = Ketone) Negative Bilirubin (test code = Bilirubin) Negative Glucose (test code = Glucose) Negative Appearance (test code = Cloudy Appearance) Color (test code = Color) Dark Yellow [facility] GroupBacteria identified in Urine by [id number] 12:21:00Bacteria Ur [facility] GroupBacteria identified in Urine by [id number] 12:21:00Bacteria Ur [facility]Br[facility] GroupBacteria identified in Urine by [id number] 12:21:00Bacteria Ur [facility] GroupUrinalysis macro (dipstick) panel - [id number] 14:00:55 Test Item Value Reference Range Interpretation Comments Leukocytes (test code = Leukocytes) Negative Nitrite (test code = Nitrite) positive Urobilinogen (test code = .2 Urobilinogen) Protein (test code = Protein) 30 pH (test code = pH) 6.0 Blood (test code = Blood) Negative Specific [place] (test code = 1.020 Specific [place]) Ketone (test code = Ketone) Trace Bilirubin (test code = Bilirubin) Small Glucose (test code = Glucose) 100 Appearance (test code = Appearance) Turbid Color (test code = Color) [place] [facility] GroupUrinalysis macro (dipstick) panel - [id number] 14:00:55 Test Item Value Reference Range Interpretation Comments Leukocytes (test code = Leukocytes) Negative Nitrite (test code = Nitrite) positive Urobilinogen (test code = .2 Urobilinogen) Protein (test code = Protein) 30 pH (test code = pH) 6.0 Blood (test code = Blood) Negative Specific [place] (test code = 1.020 Specific [place]) Ketone (test code = Ketone) Trace Bilirubin (test code = Bilirubin) Small Glucose (test code = Glucose) 100 Appearance (test code = Appearance) Turbid Color (test code = Color) [place] [facility] [id number] 10:40:00 Test Item Value Reference Range Interpretation Comments Coronavirus (COVID-19) Not Detected (08/03/20 JULISSA (test code = 5:40 AM) Coronavirus (COVID-19) JULISSA) [facility] [id number] 10:32:00 Test Item Value Reference Range Interpretation Comments quest collection (test code = quest quest collection) [facility] [id number] 10:32:00 Test Item Value Reference Range Interpretation Comments quest collection (test code = quest quest collection) [facility] [id number] 17:04:00 Test Item Value Reference Range Interpretation Comments ABO/Rh (test code = ABO/Rh) A POS [facility] [id number] 17:04:00 Test Item Value Reference Range Interpretation Comments Antibody Scrn (test Negative (05/11/20 code = Antibody Scrn) 11:04 AM) [facility]OVID[facility] Ag [Presence] in Respiratory specimen by Rapid [id number] 12:34:00 Test Item Value Reference Range Interpretation Comments SARS-CoV - 2 (test code = SARS-CoV - negative 2) [facility] HospitalUrinalysis macro (dipstick) panel - [id number] 11:41:00 Test Item Value Reference Range Interpretation Comments Leukocytes (test code = Leukocytes) Negative Nitrite (test code = Nitrite) negative Urobilinogen (test code = 1 Urobilinogen) Protein (test code = Protein) Negative pH (test code = pH) 7.0 Blood (test code = Blood) Negative Specific [place] (test code = 1.025 Specific [place]) Ketone (test code = Ketone) Negative Bilirubin (test code = Bilirubin) Small Glucose (test code = Glucose) Negative Appearance (test code = Appearance) Cloudy Color (test code = Color) Yellow [facility] HospitalUrinalysis macro (dipstick) panel - [id number] 11:41:00 Test Item Value Reference Range Interpretation Comments Leukocytes (test code = Leukocytes) Negative Nitrite (test code = Nitrite) negative Urobilinogen (test code = 1 Urobilinogen) Protein (test code = Protein) Negative pH (test code = pH) 7.0 Blood (test code = Blood) Negative Specific [place] (test code = 1.025 Specific [place]) Ketone (test code = Ketone) Negative Bilirubin (test code = Bilirubin) Small Glucose (test code = Glucose) Negative Appearance (test code = Appearance) Cloudy Color (test code = Color) Yellow [facility] HospitalHemoglobin A1c [Mass/volume] in [id number] 11:30:00 Test Item Value Reference Range Interpretation Comments Hemoglobin A1c [Mass/volume] in Blood 5.8 % 4.0-6.0 (test code = 56456-7) [facility] HospitalComprehensive metabolic 2000 panel - Serum or [...] Serum or Plasma (test code = 6768-6) [facility] HospitalMagnesium [Moles/volume] in Unspecified specimen 2020-05-04 11:30:00 Test Item Value Reference Range Interpretation Comments magnesium level (test code = 2.1 mg/dL 1.6-2.6 magnesium level) [facility] HospitalCreatine kinase [Enzymatic activity/volume] in Serum or [id number] 11:30:00 Test Item Value Reference Range Interpretation Comments creatine kinase (test code = creatine 49 U/L 20-180 kinase) [facility] HospitalPT/[id number] 11:30:00 Test Item Value Reference Range Interpretation Comments prothrombin time (test code = 9.9 seconds 10.3-12.3 L prothrombin time) INR in Blood by Coagulation assay 0.92 (test code = 66433-4) [facility] Hospitalpartial thromboplastin [id number] 11:30:00 Test Item Value Reference Range Interpretation Comments INR in Blood by Coagulation 27.1 seconds 22.5-37.0 assay (test code = 19286-7) [facility] HospitalUrinalysis complete W Reflex Culture panel - Urine 2020-05-04 11:30:00 Test Item Value Reference Range Interpretation Comments Color of Urine by Auto (test dark yellow code = 57590-4) Appearance of Urine (test code clear clear = 5767-9) Glucose [Presence] in Urine by negative negative Automated test strip (test code = 01451-2) Bilirubin.total [Mass/volume] negative negative in Urine (test code = 1978-6) Ketones [Mass/volume] in Urine negative negative by Automated test strip (test code = 00065-8) Specific gravity of Urine by 1.025 1.003-1.030 Automated test strip (test code = 02547-3) blood urine (test code = blood negative negative urine) pH of Urine (test code = 7.500 5-9 9129-5) protein urine (UA) (test code = trace negative protein urine (UA)) Urobilinogen [Presence] in =2.0 0.2-1.0 H Urine (test code = 04942-0) Nitrite [Presence] in Urine by negative negative Test strip (test code = 5802-4) Leukocyte esterase [Presence] negative negative in Urine by Automated test strip (test code = 62122-0) Erythrocytes [#/volume] in =1-5 0-5 Urine by Automated count (test code = 798-9) Leukocytes [#/area] in Urine <1 0-5 sediment by Automated count (test code = 12788-6) Epithelial cells [Presence] in =6-10 0-5 Urine sediment by Light microscopy (test code = 70381-4) Bacteria identified in Urine by none detected none detect Culture (test code = 630-4) Casts [#/area] in Urine =2-5 none detect sediment by Automated count (test code = 87709-2) urine culture added? (test code no = urine culture added?) [facility] HospitalThyrotropin [Units/volume] in Serum or [id number] 11:30:00 Test Item Value Reference Range Interpretation Comments Thyrotropin [Units/volume] in 4.22 uIU/mL 0.36-3.74 H Serum or Plasma (test code = 3016-3) [facility] HospitalThyroxine (T4) free [Mass/volume] in Serum or Plasma 2020-05-04 11:30:00 Test Item Value Reference Range Interpretation Comments free T4 (test code = free T4) 1.27 NG/dL 0.93-1.7 [facility] HospitalTriiodothyronine (T3) Free [Mass/volume] in Serum or [id number] 11:30:00 Test Item Value Reference Range Interpretation Comments free T3 (test code = free T3) 2.89 pg/mL 2.0-4.4 [facility] W Auto Differential panel - [id number] 11:30:00 Test Item Value Reference Range Interpretation Comments white blood count (test code = 5.9 K/uL 4.0-11.5 white blood count) red blood count (test code = red 4.02 M/uL 3.80-5.20 blood count) hemoglobin (test code = 12.8 g/dL 10.5-15.7 hemoglobin) hematocrit (test code = 40.4 % 34.0-50.0 hematocrit) MCV [Entitic volume] (test code = 100.5 fL 86-100 H 08810-0) mean corpuscular hemoglobin (test 31.8 pg 26.2-33.4 [...] 44.4-80.1 leukocytes in Blood (test code = 86944-6) Immature granulocytes [#/volume] 0.0 K/uL 0.0-0.03 in Blood (test code = 17138-2) lymphocyte% (test code = 35.9 % 10.0-50.0 lymphocyte%) mono % (test code = mono %) 4.7 % 3.6-12.0 eos % (test code = eos %) 2.2 % 0.0-5.4 Basophils/100 leukocytes in 0.5 % 0.1-1.2 Unspecified specimen (test code = 39116-0) Band form neutrophils [#/volume] 3.35 K/uL 1.56-6.13 in Blood (test code = 08298-5) Lymphocytes [#/volume] in 2.1 K/uL 1.18-3.74 Unspecified specimen by Automated count (test code = 12644-4) mono # (test code = mono #) 0.28 K/uL 0.24-0.86 eos # (test code = eos #) 0.13 K/uL 0.04-0.36 basophil # (test code = basophil 0.03 K/uL 0.01-0.08 #) NRBC% (test code = NRBC%) 0 /100 WBC 0-0.2 NRBC# (test code = NRBC#) 0 K/uL [facility] HospitalDifferential panel, method unspecified - [id number] 11:30:00NeutrophilsBandLymphocyteAtypical LymphMonocyteEosinophilBasophilMetamyelocyteAbs Neutrophil Count (Man)Abs Lymph Count (Man)Abs Monocyte Count (Man)Abs Eosinophil Count (Man)Abs Basophil Count (Man)Platelet EstimateMaForrest General HospitalHemoglobin A1c/Hemoglobin.total in [id number] 11:30:00 Test Item Value Reference Range Interpretation Comments Hemoglobin A1c [Mass/volume] in Blood 5.8 % 4.0-6.0 (test code = 42143-1) [facility] HospitalComprehensive metabolic 2000 panel - Serum or [...] Serum or Plasma (test code = 6768-6) [facility] HospitalMagnesium [Moles/volume] in Unspecified specimen 2020-05-04 11:30:00 Test Item Value Reference Range Interpretation Comments magnesium level (test code = 2.1 mg/dL 1.6-2.6 magnesium level) [facility] HospitalCreatine kinase [Enzymatic activity/volume] in Serum or [id number] 11:30:00 Test Item Value Reference Range Interpretation Comments creatine kinase (test code = creatine 49 U/L 20-180 kinase) [facility] HospitalPT/[id number] 11:30:00 Test Item Value Reference Range Interpretation Comments prothrombin time (test code = 9.9 seconds 10.3-12.3 L prothrombin time) INR in Blood by Coagulation assay 0.92 (test code = 20813-4) [facility] HospitalPT and aPTT panel - Platelet poor plasma by Coagulation [id number] 11:30:00 Test Item Value Reference Range Interpretation Comments INR in Blood by Coagulation 27.1 seconds 22.5-37.0 assay (test code = 21787-1) [facility] HospitalUrinalysis complete W Reflex Culture panel - Urine 2020-05-04 11:30:00 Test Item Value Reference Range Interpretation Comments Color of Urine by Auto (test dark yellow code = 95632-2) Appearance of Urine (test code clear clear = 5767-9) Glucose [Presence] in Urine by negative negative Automated test strip (test code = 01140-2) Bilirubin.total [Mass/volume] negative negative in Urine (test code = 1978-6) Ketones [Mass/volume] in Urine negative negative by Automated test strip (test code = 36006-7) Specific gravity of Urine by 1.025 1.003-1.030 Automated test strip (test code = 90984-5) blood urine (test code = blood negative negative urine) pH of Urine (test code = 7.500 5-9 2756-5) protein urine (UA) (test code = trace negative protein urine (UA)) Urobilinogen [Presence] in =2.0 0.2-1.0 H Urine (test code = 18601-6) Nitrite [Presence] in Urine by negative negative Test strip (test code = 5802-4) Leukocyte esterase [Presence] negative negative in Urine by Automated test strip (test code = 44286-0) Erythrocytes [#/volume] in =1-5 0-5 Urine by Automated count (test code = 798-9) Leukocytes [#/area] in Urine <1 0-5 sediment by Automated count (test code = 43186-9) Epithelial cells [Presence] in =6-10 0-5 Urine sediment by Light microscopy (test code = 52897-2) Bacteria identified in Urine by none detected none detect Culture (test code = 630-4) Casts [#/area] in Urine =2-5 none detect sediment by Automated count (test code = 03527-8) urine culture added? (test code no = urine culture added?) [facility] HospitalThyrotropin [Units/volume] in Serum or [id number] 11:30:00 Test Item Value Reference Range Interpretation Comments Thyrotropin [Units/volume] in 4.22 uIU/mL 0.36-3.74 H Serum or Plasma (test code = 3016-3) [facility] HospitalThyroxine (T4) free [Mass/volume] in Serum or Plasma 2020-05-04 11:30:00 Test Item Value Reference Range Interpretation Comments free T4 (test code = free T4) 1.27 NG/dL 0.93-1.7 [facility] HospitalTriiodothyronine (T3) Free [Mass/volume] in Serum or [id number] 11:30:00 Test Item Value Reference Range Interpretation Comments free T3 (test code = free T3) 2.89 pg/mL 2.0-4.4 [place] [facility] Differential panel - [id number] 11:30:00 Test Item Value Reference Range Interpretation Comments white blood count (test code = 5.9 K/uL 4.0-11.5 white blood count) red blood count (test code = red 4.02 M/uL 3.80-5.20 blood count) hemoglobin (test code = 12.8 g/dL 10.5-15.7 hemoglobin) hematocrit (test code = 40.4 % 34.0-50.0 hematocrit) MCV [Entitic volume] (test code = 100.5 fL 86-100 H 57821-6) mean corpuscular hemoglobin (test 31.8 pg 26.2-33.4 [...] 44.4-80.1 leukocytes in Blood (test code = 78838-2) Immature granulocytes [#/volume] 0.0 K/uL 0.0-0.03 in Blood (test code = 59748-4) lymphocyte% (test code = 35.9 % 10.0-50.0 lymphocyte%) mono % (test code = mono %) 4.7 % 3.6-12.0 eos % (test code = eos %) 2.2 % 0.0-5.4 Basophils/100 leukocytes in 0.5 % 0.1-1.2 Unspecified specimen (test code = 93513-2) Band form neutrophils [#/volume] 3.35 K/uL 1.56-6.13 in Blood (test code = 25271-2) Lymphocytes [#/volume] in 2.1 K/uL 1.18-3.74 Unspecified specimen by Automated count (test code = 14514-6) mono # (test code = mono #) 0.28 K/uL 0.24-0.86 eos # (test code = eos #) 0.13 K/uL 0.04-0.36 basophil # (test code = basophil 0.03 K/uL 0.01-0.08 #) NRBC% (test code = NRBC%) 0 /100 WBC 0-0.2 NRBC# (test code = NRBC#) 0 K/uL [facility], method unspecified - [id number] 11:30:00NeutrophilsBandLymphocyteAtypical LymphMonocyteEosinophilBasophilMetamyelocyteAbs Neutrophil Count (Man)Abs Lymph Count (Man)Abs Monocyte Count (Man)Abs Eosinophil Count (Man)Abs Basophil Count (Man)Platelet EstimateMaForrest General HospitalUrinalysis macro (dipstick) panel - [id number] 14:27:39 Test Item Value Reference Range Interpretation Comments Leukocytes (test code = Leukocytes) Negative Nitrite (test code = Nitrite) negative Urobilinogen (test code = .2 Urobilinogen) Protein (test code = Protein) Negative pH (test code = pH) 7.0 Blood (test code = Blood) Negative Specific [place] (test code = 1.010 Specific [place]) Ketone (test code = Ketone) Negative Bilirubin (test code = Bilirubin) Negative Glucose (test code = Glucose) Negative Appearance (test code = Appearance) Clear Color (test code = Color) Yellow [facility] HospitalBacteria identified in Urine by [id number] 00:00:00 Test Item Value Reference Range Interpretation Comments Bacteria identified in Urine by comment Culture (test code = 630-4) [facility] HospitalFollitropin [Units/volume] in Serum or [id number] 00:00:00 Test Item Value Reference Range Interpretation Comments Follitropin [Units/volume] in 0.5 mIU/mL Serum or Plasma (test code = 72101-0) [facility] HospitalEstradiol (E2) [Mass/volume] in Serum or [id number] 00:00:00 Test Item Value Reference Range Interpretation Comments Estradiol (E2) [Mass/volume] in 47.3 pg/mL Serum or Plasma (test code = 2243-4) [facility] HospitalUrinalysis macro (dipstick) panel - [id number] 13:53:54 Test Item Value Reference Range Interpretation Comments Leukocytes (test code = Leukocytes) Negative Nitrite (test code = Nitrite) positive Urobilinogen (test code = .2 Urobilinogen) Protein (test code = Protein) Negative pH (test code = pH) 6.5 Blood (test code = Blood) Negative Specific [place] (test code = 1.020 Specific [place]) Ketone (test code = Ketone) Negative Bilirubin (test code = Bilirubin) Negative Glucose (test code = Glucose) Negative Appearance (test code = Appearance) Clear Color (test code = Color) Yellow [facility] HospitalUrinalysis macro (dipstick) panel - [id number] 13:53:54 Test Item Value Reference Range Interpretation Comments Leukocytes (test code = Leukocytes) Negative Nitrite (test code = Nitrite) positive Urobilinogen (test code = .2 Urobilinogen) Protein (test code = Protein) Negative pH (test code = pH) 6.5 Blood (test code = Blood) Negative Specific [place] (test code = 1.020 Specific [place]) Ketone (test code = Ketone) Negative Bilirubin (test code = Bilirubin) Negative Glucose (test code = Glucose) Negative Appearance (test code = Appearance) Clear Color (test code = Color) Yellow [facility] HospitalTISSUE [id number] 12:49:00Surgical Pathology Report Case: [id number] Aut horizing Provider: April Mock MD Collected: 01/09/2020 02:19 PM Ordering Location: [facility] Received: 01/09/2020 04:37 PM SERVICES Pathologist: Flavia Lazar MD Specimens: A) - Biopsy, Terminal Ileum, terminal ileum bx B) -Colon Biopsy, Random, random colonic bx A. SMALL BOWEL, TERMINAL ILEUM, BIOPSIES: - CHRONIC ACTIVE ILEITISB. COLON, RANDOM BIOPSIES: - REACTIVE CHANGENZK/pl Signing Pathologist Direct Phone Line: [phone] signed by Flavia Lazar MD on 01/13/2020 at 12:49 [id number] and postoperative diagnoses: Crohn's disease of both small and large intestines without complication.A. Terminal ileum biopsy B. Random colonic biopsy Part A received in formalin labeled with the patient's name, medical record number and "biopsy, terminal ileum" are three pieces of rordiguez-white soft tissue ranging in size from 0.1 [...] abscess, microscopic colitis, dysplasia or malignancy is seen[facility] [id number] 01:29:00 Test Item Value Reference Range Interpretation Comments [facility] blood collection sent to [facility] (test code = [facility] blood collection) [facility] HospitalUrinalysis macro (dipstick) panel - [id number] 15:18:00 Test Item Value Reference Range Interpretation Comments Leukocytes (test code = Negative Leukocytes) Nitrite (test code = Nitrite) negative Urobilinogen (test code = 1 Urobilinogen) Protein (test code = Protein) Trace pH (test code = pH) 6.0 Blood (test code = Blood) Negative Specific [place] (test code = 1.030 Specific [place]) Ketone (test code = Ketone) Negative Bilirubin (test code = Bilirubin) Small Glucose (test code = Glucose) Negative Appearance (test code = Clear Appearance) Color (test code = Color) Dark Yellow [facility] HospitalUrinalysis macro (dipstick) panel - [id number] 15:18:00 Test Item Value Reference Range Interpretation Comments Leukocytes (test code = Negative Leukocytes) Nitrite (test code = Nitrite) negative Urobilinogen (test code = 1 Urobilinogen) Protein (test code = Protein) Trace pH (test code = pH) 6.0 Blood (test code = Blood) Negative Specific [place] (test code = 1.030 Specific [place]) Ketone (test code = Ketone) Negative Bilirubin (test code = Bilirubin) Small Glucose (test code = Glucose) Negative Appearance (test code = Clear Appearance) Color (test code = Color) Dark Yellow [facility] - Serum or Plasma 2019-10-15 01:33:00 [...] Serum or Plasma (test code = 6768-6) [facility] metabolic 1999 panel - Serum or Plasma 2019-10-15 01:33:00 [...] Serum or Plasma (test code = 6768-6) [facility] blood [id number] 10:15:00 Test Item Value Reference Range Interpretation Comments [facility] (test code = [facility] blood collection) [facility] blood [id number] 10:15:00 Test Item Value Reference Range Interpretation Comments [facility] (test code = [facility] blood collection) [facility] HospitalUrinalysis macro (dipstick) panel - [id number] 14:31:00 Test Item Value Reference Range Interpretation Comments Leukocytes (test code = Leukocytes) Negative Nitrite (test code = Nitrite) negative Urobilinogen (test code = .2 Urobilinogen) Protein (test code = Protein) Negative pH (test code = pH) 6.5 Blood (test code = Blood) Negative Specific [place] (test code = 1.025 Specific [place]) Ketone (test code = Ketone) Negative Bilirubin (test code = Bilirubin) Negative Glucose (test code = Glucose) Negative Appearance (test code = Appearance) Cloudy Color (test code = Color) Yellow [facility] HospitalUrinalysis macro (dipstick) panel - [id number] 14:31:00 Test Item Value Reference Range Interpretation Comments Leukocytes (test code = Leukocytes) Negative Nitrite (test code = Nitrite) negative Urobilinogen (test code = .2 Urobilinogen) Protein (test code = Protein) Negative pH (test code = pH) 6.5 Blood (test code = Blood) Negative Specific [place] (test code = 1.025 Specific [place]) Ketone (test code = Ketone) Negative Bilirubin (test code = Bilirubin) Negative Glucose (test code = Glucose) Negative Appearance (test code = Appearance) Cloudy Color (test code = Color) Yellow [facility] HospitalCT, [id number] 10:26:00ENTEROGRAPHYFINAL REPORT CT of the abdomen and [...] 06/19/2019 10:26:36 Reading Location: [facility] C013X Ortho Consult Reading Room quest [id number] 10:45:00 Test Item Value Reference Range Interpretation Comments quest collection (test code = quest quest collection) [facility] HospitalCandida sp DNA [Presence] in Vaginal fluid by Probe and target amplification [id number] 00:00:00 Test Item Value Reference Range Interpretation [...] code = ye glabrata by real-time PCR) [facility] HospitalUrinalysis macro (dipstick) panel - [id number] 13:42:54 Test Item Value Reference Range Interpretation Comments Leukocytes (test code = Leukocytes) Negative Nitrite (test code = Nitrite) negative Urobilinogen (test code = .2 Urobilinogen) Protein (test code = Protein) Negative pH (test code = pH) 7.0 Blood (test code = Blood) Negative Specific [place] (test code = 1.015 Specific [place]) Ketone (test code = Ketone) Trace Bilirubin (test code = Bilirubin) Small Glucose (test code = Glucose) Negative Appearance (test code = Appearance) Clear Color (test code = Color) Yellow [facility] HospitalUrinalysis macro (dipstick) panel - [id number] 13:42:54 Test Item Value Reference Range Interpretation Comments Leukocytes (test code = Leukocytes) Negative Nitrite (test code = Nitrite) negative Urobilinogen (test code = .2 Urobilinogen) Protein (test code = Protein) Negative pH (test code = pH) 7.0 Blood (test code = Blood) Negative Specific [place] (test code = 1.015 Specific [place]) Ketone (test code = Ketone) Trace Bilirubin (test code = Bilirubin) Small Glucose (test code = Glucose) Negative Appearance (test code = Appearance) Clear Color (test code = Color) Yellow [facility] HospitalUrinalysis macro (dipstick) panel - [id number] 10:18:17 Test Item Value Reference Range Interpretation Comments Leukocytes (test code = Leukocytes) Negative Nitrite (test code = Nitrite) negative Urobilinogen (test code = .2 Urobilinogen) Protein (test code = Protein) Negative pH (test code = pH) 6.5 Blood (test code = Blood) Negative Specific [place] (test code = 1.010 Specific [place]) Ketone (test code = Ketone) Negative Bilirubin (test code = Bilirubin) Negative Glucose (test code = Glucose) Negative Appearance (test code = Appearance) Clear Color (test code = Color) Yellow [facility] HospitalUrinalysis macro (dipstick) panel - [id number] 10:18:17 Test Item Value Reference Range Interpretation Comments Leukocytes (test code = Leukocytes) Negative Nitrite (test code = Nitrite) negative Urobilinogen (test code = .2 Urobilinogen) Protein (test code = Protein) Negative pH (test code = pH) 6.5 Blood (test code = Blood) Negative Specific [place] (test code = 1.010 Specific [place]) Ketone (test code = Ketone) Negative Bilirubin (test code = Bilirubin) Negative Glucose (test code = Glucose) Negative Appearance (test code = Appearance) Clear Color (test code = Color) Yellow [facility] HospitalUrinalysis macro (dipstick) panel - [id number] 10:18:17 Test Item Value Reference Range Interpretation Comments Leukocytes (test code = Leukocytes) Negative Nitrite (test code = Nitrite) negative Urobilinogen (test code = .2 Urobilinogen) Protein (test code = Protein) Negative pH (test code = pH) 6.5 Blood (test code = Blood) Negative Specific [place] (test code = 1.010 Specific [place]) Ketone (test code = Ketone) Negative Bilirubin (test code = Bilirubin) Negative Glucose (test code = Glucose) Negative Appearance (test code = Appearance) Clear Color (test code = Color) Yellow [facility] HospitalUrinalysis macro (dipstick) panel - [id number] 10:04:32 Test Item Value Reference Range Interpretation Comments Leukocytes (test code = Leukocytes) Negative Nitrite (test code = Nitrite) negative Urobilinogen (test code = .2 Urobilinogen) Protein (test code = Protein) Negative pH (test code = pH) 6.5 Blood (test code = Blood) Negative Specific [place] (test code = 1.010 Specific [place]) Ketone (test code = Ketone) Negative Bilirubin (test code = Bilirubin) Negative Glucose (test code = Glucose) Negative Appearance (test code = Appearance) Clear Color (test code = Color) Yellow [facility] [employer] [facility]Ur[facility] macro (dipstick) panel - [id number] 10:04:32 Test Item Value Reference Range Interpretation Comments Leukocytes (test code = Leukocytes) Negative Nitrite (test code = Nitrite) negative Urobilinogen (test code = .2 Urobilinogen) Protein (test code = Protein) Negative pH (test code = pH) 6.5 Blood (test code = Blood) Negative Specific [place] (test code = 1.010 Specific [place]) Ketone (test code = Ketone) Negative Bilirubin (test code = Bilirubin) Negative Glucose (test code = Glucose) Negative Appearance (test code = Appearance) Clear Color (test code = Color) Yellow [facility] HospitalUrinalysis macro (dipstick) panel - [id number] 10:04:32 Test Item Value Reference Range Interpretation Comments Leukocytes (test code = Leukocytes) Negative Nitrite (test code = Nitrite) negative Urobilinogen (test code = .2 Urobilinogen) Protein (test code = Protein) Negative pH (test code = pH) 6.5 Blood (test code = Blood) Negative Specific [place] (test code = 1.010 Specific [place]) Ketone (test code = Ketone) Negative Bilirubin (test code = Bilirubin) Negative Glucose (test code = Glucose) Negative Appearance (test code = Appearance) Clear Color (test code = Color) Yellow [facility] HospitalBacteria identified in Urine by [id number] 00:00:00Bacteria Ur [facility], [id number] 00:00:00 Test Item Value Reference Range Interpretation [...] Minimum inhibitory concentration (VIVIENNE) (test code = 91259-9) Piperacillin+Tazobactam <16 [Susceptibility] by Minimum inhibitory concentration [...] <2 inhibitory concentration (VIVIENNE) (test code = 83686-7) Aztreonam [Susceptibility] by Minimum <8 inhibitory concentration (VIVIENNE) (test code = 44-8) Cefuroxime [Susceptibility] by Minimum <4 inhibitory concentration (VIVIENNE) (test code = 86220-0) Meropenem [Susceptibility] by Minimum <4 inhibitory concentration (VIVIENNE) (test code = 6652-2) [facility] HospitalBacteria identified in Urine by [id number] 00:00:00Bacteria Ur [facility]antib[facility], [id number] 00:00:00 Test Item Value Reference Range Interpretation [...] Minimum inhibitory concentration (VIVIENNE) (test code = 29500-9) Piperacillin+Tazobactam <16 [Susceptibility] by Minimum inhibitory concentration [...] <2 inhibitory concentration (VIVIENNE) (test code = 69875-0) Aztreonam [Susceptibility] by Minimum <8 inhibitory concentration (VIVIENNE) (test code = 44-8) Cefuroxime [Susceptibility] by Minimum <4 inhibitory concentration (VIVIENNE) (test code = 12911-8) Meropenem [Susceptibility] by Minimum <4 inhibitory concentration (VIVIENNE) (test code = 6652-2) [facility] GroupMicroscopic observation [Identifier] in Cervix by Cyto stain.thin [id number] 00:00:00 Test Item Value Reference Range Interpretation Comments Human papilloma virus positive 16+18+31+33+35+39+45+51+52+56+58+59+ 68 DNA [Presence] in Cervix by Probe and signal amplification method (test code = 30238-6) results (test code = results) [facility] GroupBacteria identified in Urine by [id number] 02:14:00 Test Item Value Reference Range Interpretation Comments Bacteria identified in no growth at 48 hrs. Urine by Culture (test code = 630-4) [facility] GroupBacteria identified in Urine by [id number] 02:14:00 Test Item Value Reference Range Interpretation Comments Bacteria identified in no growth at 48 hrs. Urine by Culture (test code = 630-4) [facility] [id number] 08:01:00 Test Item Value Reference Range Interpretation Comments MAGNESIUM (BEAKER) 1.8 mg/dL 1.6-2.6 Specimen moderately (test code = 627) hemolyzed BASIC METABOLIC [id number] 08:01:00 Test Item Value Reference Range Interpretation [...] PATIEN TS. CBC W/PLT COUNT & AUTO [id number] 05:59:00 Test Item Value Reference Range Interpretation [...] 0-1 PERCENT (BEAKER) (test code = 2801) [id number] 07:04:00 Test Item Value Reference Range Interpretation Comments MAGNESIUM (BEAKER) (test code = 1.8 mg/dL 1.6-2.6 627) BASIC METABOLIC [id number] 07:04:00 Test Item Value Reference Range Interpretation [...] I S NOT APPLICABLE FOR DIALYSIS PATIEN STEPHANIE. CORTISOL,60 [id number] 07:01:00 Test Item Value Reference Range Interpretation [...] a study by Padilla et al (MIGUEL 2000,283(8):8081-45), the ACTH Stimulation Test provides important prognostic [...] a study by Padilla et al (MIGUEL 2000,283(8):5649-57), the ACTH Stimulation Test provides important prognostic [...] after cosyntropin administration.CBC W/PLT COUNT & AUTO [id number] 05:46:00 Test Item Value Reference Range Interpretation [...] 0-1 PERCENT (BEAKER) (test code = 2801) CORTISOL,[id number] 19:10:00 Test Item Value Reference Range Interpretation [...] = 1.8 mg/dL 1.6-2.6 627) BASIC METABOLIC [id number] 14:23:00 Test Item Value Reference Range Interpretation [...] PATIEN TS. CBC W/PLT COUNT & AUTO [id number] 14:01:00 Test Item Value Reference Range Interpretation [...] % 0-1 PERCENT (BEAKER) (test code = 2808) OVA AND PARASITE [id number] 12:03:00 Test Item Value Reference Range Interpretation [...] (BEAKER) (test seen seen code = 248) [id number] 05:30:00 Test Item Value Reference Range Interpretation Comments MAGNESIUM (BEAKER) (test code = 1.9 mg/dL 1.6-2.6 627) BASIC METABOLIC [id number] 05:30:00 Test Item Value Reference Range Interpretation [...] PATIEN TS. CBC W/PLT COUNT & AUTO [id number] 04:58:00 Test Item Value Reference Range Interpretation [...] PERCENT (BEAKER) (test code = 2801) TISSUE [id number] 15:51:00Surgical Pathology Report Case: [id number] Authorizing Provider: Bartolo Quinn Collected: 11/10/2018 1543 Ordering Location: [address] Received: 11/12/2018 0813 Service Pathologist: Linda [...] CRYPT DISTORTION Signing Pathologist Direct Phone Line: [phone] signed by Linda Mullen MD on 11/12/2018 at 3:51 PMPatient's history of Crohn's disease is noted. The current sampling shows no significant active or chronic colitis. This may represent complete histologic resolution following treatment. Clinical and endoscopic correlation is recommended.[id number] and postop diagnosis: diarrhea A. Neoterminal ileum [...] in E1. CG/pl Performed.STOOL CULTURE + SHIGA [id number] 08:26:00 Test Item Value Reference Range Interpretation Comments CULTURE (BEAKER) No Salmonella, Shigella (test code = 1095) or Campylobacter isolated GI PATHOGEN PROFILE BY [id number] 08:20:00 Test Item Value Reference Range Interpretation Comments CAMPYLOBACTER (PCR) (test code = Not detected Not detected 20151103) PLESIOMONAS SHIGELLOIDES (PCR) Not detected Not detected (test code = 20151107) SALMONELLA (PCR) (test code = Not detected Not detected ) YERSINIA ENTEROCOLITICA (PCR) Not detected Not detected (test code = 20151130) VIBRIO CHOLERAE (PCR) (test code Not detected Not detected = 2201022) ENTEROAGGREGATIVE E. COLI (EAEC) Not detected Not detected BY PCR (test code = 3114515) ENTEROPATHOGENIC E. COLI (EPEC) Not detected Not detected BY PCR (test code = 8546845) ENTEROTOXIGENIC E. COLI (ETEC) Not detected Not detected LT/ST BY PCR (test code = 4188703) SHIGA-LIKE TOXIN-PRODUCING E. Not detected Not detected COLI (STEC) STX1/STX2 (test code = 3763343) E. COLI O157 (PCR) (test code = Not detected 0133927) SHIGELLA/ENTEROINVASIVE E. COLI Not detected Not detected (EIEC) BY PCR (test code = 2838126) CRYPTOSPORIDIUM (PCR) (test code Not detected Not detected = 20151208) CYCLOSPORA CAYETANENSIS (PCR) Not detected Not detected (test code = 0418715) ENTAMOEBA HISTOLYTICA (PCR) Not detected Not detected [...] Not detected Not detected (test code = 5429281) VIBRIO (PARAHAEMOLYTICUS, Not detected Not detected VULNIFICUS) (test code = 0518383) Other viruses, parasites and bacteria not targeted by this PCR panel cannot be excluded; therefore clinical correlation and follow up of serology, culture results, and other molecular studies is required. The results are not intended to be used as the sole means for clinical diagnosis or patient management decisions. This sample was tested at the [facility] Molecular Diagnostics Laboratory using the [employer] Gastrointestinal Panel. It is FDA cleared and has been verified and approved by the [facility] Molecular Diagnostics Laboratory for clinical use. This laboratory is CLIA-certified and College ofAmerican Pathologists (CAP)-accredited to perform high complexity testing.CORTISOL 2018-11-09 06:24:00 Test Item Value Reference Range Interpretation Comments CORTISOL, TOTAL (BEAKER) (test code = < ug/dL 3.7-19.4 L 9831) BASIC METABOLIC [id number] 05:50:00 Test Item Value Reference Range Interpretation [...] APPLICABLE FOR DIALYSIS PATIEN TS. SHIGA TOXIN [id number] 14:16:00 Test Item Value Reference Range Interpretation Comments SHIGA TOXIN 1 (BEAKER) (test Not detected Not detected code = 2177) SHIGA TOXIN 2 (BEAKER) (test Not detected Not detected code = 2179) STOOL PATH [id number] 10:08:00 Test Item Value Reference Range Interpretation Comments PATHOGEN EXAM CHARGED (BEAKER) (test Done code = 2381) TSH/FREE T4 IF [id number] 05:59:00 Test Item Value Reference Range Interpretation Comments THYROID STIMULATING HORMONE 2.84 uIU/mL 0.35-4.94 (BEAKER) (test code = 772) BASIC METABOLIC [id number] 05:38:00 Test Item Value Reference Range Interpretation [...] DIALYSIS PATIEN TS. RAD, ABDOMEN/KUB, 1 VIEW [id number] 14:37:00Reason for exam:->post-obstructive diarrheaShould this be performed [...] MDReport Verified Date/Time: 11/07/2018 14:37:57 Reading Location: [facility] C0W Consult Reading Room CT, [id number] 14:25:00FINAL REPORT TECHNIQUE: CT of the abdomen [...] MDReport Verified Date/Time: 11/07/2018 14:25:25 Reading Location: [address] Body Reading Room CBC W/PLT COUNT & AUTO [id number] 13:14:00 Test Item Value Reference Range Interpretation [...] Received comment: User comments: Slide comments:[facility] [id number] 12:53:00 Test Item Value Reference Range Interpretation Comments CDT TOXIN (test code Negative Negative = 6494107375) CDT GDH ANTIGEN (test Negative Negative No ind ication of code = 6540893499) Clostridi um difficile infection and n o colonization. Discontinue ent leon isolation and t herapy. Testing performed by [employer] Rapid Cassette Assay. For GDH, published sensitivity of the assay is 98.7% compared to cytotoxicity testing. For Toxin AB, published sensitivity is 87.8% and specificity 99.4% compared to cytotoxicity testing.Verification of kit performance was done by the [facility] Microbiology Lab prior to clinical use.C-REACTIVE [id number] 06:53:00 Test Item Value Reference Range Interpretation Comments C-REACTIVE PROTEIN (BEAKER) (test 0.37 mg/dL 0.00-0.50 code = 676) BASIC METABOLIC [id number] 06:41:00 Test Item Value Reference Range Interpretation [...] NOT APPLICABLE FOR DIALYSIS PATIEN TS. Laboratory [id number] 05:30:00 Test Item Value Reference Range Interpretation Comments Sodium Level (test code = Sodium Level) 142 136-145 [facility] [id number] 05:30:00 Test Item Value Reference Range Interpretation Comments Potassium Level (test code = Potassium 3.6 3.5-5.1 Level) [facility]2019-06-18 05:30:00 Test Item Value Reference Range Interpretation Comments Magnesium Level (test code = Magnesium 1.9 1.8-2.4 Level) [facility]2019-06-18 05:30:00 Test Item Value Reference Range Interpretation Comments Glucose Level (test code = Glucose 160 74-106 Level) [facility]2019-06-18 05:30:00 Test Item Value Reference Range Interpretation Comments Estimat Glomerular 85 See_Comment [Automat ed message] The Filtration Rate (test system which generated code = Estimat this result t ransmitted Glomerular Filtration refere nce range: >=90. Rate) The reference r markus was not used to int erpret this result as normal/abnormal . [facility]2019-06-18 05:30:00 Test Item Value Reference Range Interpretation Comments Creatinine (test code = Creatinine) 0.73 0.55-1.3 [facility]2019-06-18 05:30:00 Test Item Value Reference Range Interpretation Comments Chloride Level (test code = Chloride 108 98-107 Level) [facility]2019-06-18 05:30:00 Test Item Value Reference Range Interpretation Comments Carbon Dioxide Level (test code = 26 21-32 Carbon Dioxide Level) [facility]2019-06-18 05:30:00 Test Item Value Reference Range Interpretation Comments Calcium Level (test code = Calcium 8.4 8.5-10.1 Level) [facility]2019-06-18 05:30:00 Test Item Value Reference Range Interpretation Comments Blood Urea Nitrogen (test code = Blood 8 7-18 Urea Nitrogen) [facility]2019-06-18 05:30:00 Test Item Value Reference Range Interpretation Comments White Blood Count (test code = White 3.6 4.3-10.9 Blood Count) [facility]2019-06-18 05:30:00 Test Item Value Reference Range Interpretation Comments Red Cell Distribution Width (test code 15.0 12.1-15.2 = Red Cell Distribution Width) [facility]2019-06-18 05:30:00 Test Item Value Reference Range Interpretation Comments Red Blood Count (test code = Red Blood 4.27 3.86-4.86 Count) [facility]2019-06-18 05:30:00 Test Item Value Reference Range Interpretation Comments Platelet Count (test code = Platelet 291 152-406 Count) [facility]2019-06-18 05:30:00 Test Item Value Reference Range Interpretation Comments Neutrophils % (test code = Neutrophils 78.0 41.7-73.7 %) [facility]2019-06-18 05:30:00 Test Item Value Reference Range Interpretation Comments Monocytes % (test code = Monocytes %) 1.0 3.3-12.3 [facility]2019-06-18 05:30:00 Test Item Value Reference Range Interpretation Comments Mean Platelet Volume (test code = Mean 7.1 7.6-11.3 Platelet Volume) [facility]2019-06-18 05:30:00 Test Item Value Reference Range Interpretation Comments Mean Corpuscular Volume (test code = 91.9 80-100 Mean Corpuscular Volume) [facility]2019-06-18 05:30:00 Test Item Value Reference Range Interpretation Comments Mean Corpuscular Hemoglobin Concent 33.4 32.0-36.0 (test code = Mean Corpuscular Hemoglobin Concent) [facility]2019-06-18 05:30:00 Test Item Value Reference Range Interpretation Comments Mean Corpuscular Hemoglobin (test 30.7 pg 27.0-35.0 code = Mean Corpuscular Hemoglobin) [facility]2019-06-18 05:30:00 Test Item Value Reference Range Interpretation Comments Lymphocytes % (test code = Lymphocytes 20.7 15.3-44.8 %) [facility]2019-06-18 05:30:00 Test Item Value Reference Range Interpretation Comments Hemoglobin (test code = Hemoglobin) 13.1 12.0-15.0 [facility]2019-06-18 05:30:00 Test Item Value Reference Range Interpretation Comments Hematocrit (test code = Hematocrit) 39.2 36.0-45.0 [facility]2019-06-18 05:30:00 Test Item Value Reference Range Interpretation Comments Eosinophils % (test code 0.0 See_Comment [A utomated message] The = Eosinophils %) system ic h generated this result tra nsmitted reference range : <=4.4. The reference r markus was not used to int erpret this result as normal/abnormal . [facility]2019-06-18 05:30:00 Test Item Value Reference Range Interpretation Comments Basophils % (test code 0.3 See_Comment [Aut omated message] The = Basophils %) system which generated this result tra nsmitted reference range : <=1.3. The reference r markus was not used to int erpret this result as normal/abnormal . [facility]2019-06-18 05:30:00 Test Item Value Reference Range Interpretation Comments Absolute Neutrophil (test code = 2.8 1.8-8.0 Absolute Neutrophil) [facility]2019-06-18 05:30:00 Test Item Value Reference Range Interpretation Comments Absolute Monocytes (CBC) (test code = 0.0 0.1-1.3 Absolute Monocytes (CBC)) [facility]2019-06-18 05:30:00 Test Item Value Reference Range Interpretation Comments Absolute Lymphocytes (CBC) (test code = 0.7 0.7-4.9 Absolute Lymphocytes (CBC)) [facility]2019-06-18 05:30:00 Test Item Value Reference Range Interpretation Comments Absolute Eosinophils 0.0 See_Comment [Autom ated message] The (CBC) (test code = system [email or web address] ich generated Absolute Eosinophils this re sult transmitted (CBC)) reference range : <=0.5. The reference r markus was not used to int erpret this result as normal/abnormal . [facility]2019-06-18 05:30:00 Test Item Value Reference Range Interpretation Comments Absolute Basophils 0.0 See_Comment [Automat ed message] The (CBC) (test code = system ich generated Absolute Basophils this resu lt transmitted (CBC)) reference range : <=0.5. The reference r markus was not used to int erpret this result as normal/abnormal . [facility]2019-06-17 19:15:00 Test Item Value Reference Range Interpretation Comments Urine pH (test code = Urine pH) 7.0 1 [facility]2019-06-17 19:15:00 Test Item Value Reference Range Interpretation Comments Urine Total Protein (test Urine Total Protein code = Urine Total Protein) [facility] [id number] 19:15:00 Test Item Value Reference Range Interpretation Comments Urine Specific [place] (test code = 1.010 1 Urine Specific [place]) [facility] [id number] 19:15:00 Test Item Value Reference Range Interpretation Comments Urine Nitrite (test code = Urine Nitrite Urine Nitrite) [facility] [id number] 19:15:00 Test Item Value Reference Range Interpretation Comments Urine Leukocyte Urine Leukocyte Esterase (test code = Esterase Urine Leukocyte Esterase) [facility] [id number] 19:15:00 Test Item Value Reference Range Interpretation Comments Urine Ketones (test code = Urine Ketones Urine Ketones) [facility] [id number] 19:15:00 Test Item Value Reference Range Interpretation Comments Urine Glucose (test code = Urine Glucose Urine Glucose) [facility] [id number] 19:15:00 Test Item Value Reference Range Interpretation Comments Urine Blood (test code = Urine Urine Blood Blood) [facility] [id number] 19:05:00 Test Item Value Reference Range Interpretation Comments Urine WBC (test code = Urine WBC) no gt [facility] [id number] 19:05:00 Test Item Value Reference Range Interpretation Comments Urine Squamous Epithelial Cells (test no gt code = Urine Squamous Epithelial Cells) [facility] [id number] 19:05:00 Test Item Value Reference Range Interpretation Comments Urine RBC (test code = Urine RBC) Urine RBC [facility] [id number] 19:05:00 Test Item Value Reference Range Interpretation Comments Urine Culture Reflexed Urine Culture Reflexed (test code = Urine Culture Reflexed) [facility] [id number] 19:05:00 Test Item Value Reference Range Interpretation Comments Urine Bacteria (test code = Urine Bacteria Urine Bacteria) [facility] [id number] 16:40:00 Test Item Value Reference Range Interpretation Comments Total Bilirubin (test code = Total 0.3 0.2-1.0 Bilirubin) [facility]2019-06-17 16:40:00 Test Item Value Reference Range Interpretation Comments Serum Total Protein (test code = Serum 7.2 6.4-8.2 Total Protein) [facility]2019-06-17 16:40:00 Test Item Value Reference Range Interpretation Comments Lipase (test code = Lipase) 96 73-393 [facility]2019-06-17 16:40:00 Test Item Value Reference Range Interpretation Comments Globulin (test code = Globulin) 3.9 2.3-3.5 [facility]2019-06-17 16:40:00 Test Item Value Reference Range Interpretation Comments Direct Bilirubin (test 0.1 See_Comment [Aut omated message] The code = Direct system which g enerated Bilirubin) this result tra nsmitted reference range : <=0.2. The reference r markus was not used to int erpret this result as normal/abnormal . [facility]2019-06-17 16:40:00 Test Item Value Reference Range Interpretation Comments Aspartate Amino Transf (AST/SGOT) (test 19 15-37 code = Aspartate Amino Transf (AST/SGOT)) [facility]2019-06-17 16:40:00 Test Item Value Reference Range Interpretation Comments Alkaline Phosphatase (test code = 102 45-117 Alkaline Phosphatase) [facility]2019-06-17 16:40:00 Test Item Value Reference Range Interpretation Comments Albumin/Globulin Ratio (test code = 0.8 1 1.1-1.8 Albumin/Globulin Ratio) [facility]2019-06-17 16:40:00 Test Item Value Reference Range Interpretation Comments Albumin (test code = Albumin) 3.3 3.4-5.0 [facility]2019-06-17 16:40:00 Test Item Value Reference Range Interpretation Comments Alanine Aminotransferase (ALT/SGPT) 16 (test code = Alanine Aminotransferase (ALT/SGPT)) [facility] [id number] 09:48:00FINAL REPORT CT Abdomen And Pelvis with [...] Signed: Yany Henriquez Verified Date/Time: 09/20/2018 09:48:51 [facility] BONE DENS[facility] [id number] 13:22:00Reason for Exam:- >crohn's disease of both [...] for bone mineral density as provided by tire buffer is 0.023 g/cm2 for lumbar spine and [...] next bone mineral density study. Signed: Art Bermeoeport Verified Date/Time: 09/04/2018 13:22:29 [id number] 07:02:00 Test Item Value Reference Range Interpretation Comments PHOSPHORUS (BEAKER) (test code = 2.9 mg/dL 2.3-4.7 604) [id number] 07:02:00 Test Item Value Reference Range Interpretation Comments MAGNESIUM (BEAKER) (test code = 1.9 mg/dL 1.6-2.6 627) BASIC METABOLIC [id number] 07:02:00 Test Item Value Reference Range Interpretation [...] 0-0 (BEAKER) (test code = 413) TISSUE [id number] 13:47:00Surgical Pathology Report Case: [id number] Authorizing Provider: Jani Alejandro MD Collected: 08/20/2018 1003 Ordering Location: [facility] Received: 08/20/2018 1118 SERVICES Pathologist: Linda Mullen MD Specimen: Large Intestine, Colon - Right/Ascending, RIGHT COLON AND SMALL BOWEL A. COLON, RIGHT/ASCENDING, RIGHT HEMICOLECTOMY: - CHRONIC ACTIVE ENTERITIS COMPATIBLE WITH CROHN'S DISEASE (SEE COMMENT) - NEGATIVE FOR GRANULOMAS (OR) VIRAL CYTOPATHIC CHANGES - NEGATIVE FOR DYSPLASIA (OR) MALIGNANCY - MARGINS, UNREMARKABLE Signing Pathologist Direct Phone Line: [phone] signed by Linda Mullen MD on 08/22/2018 at 1:47 [facility]'s history of Crohn's disease s/p ileocecal [...] cytopathic changes are seen.IDC: Dr. Leslie Carballo concurs.[id number]'s disease of small intestine without complication Right [...] folding and no masses or lesions identified. [employer] sections are submitted in 10 cassettes as follows.Ink code: Blue-one marginBlack-margin closest to anastomotic siteSection code: A1 - hobbies and crafts sales representative sections of both margins, differentially inked per the ink code A2-A5 - entire sections of ulcerative areaA6 - entire sections of hemorrhagic mucosal areaA7-A10 - hobbies and crafts sales representative sections of mucosaFR/ewPerformed.[id number] 06:10:00 Test Item Value Reference Range Interpretation Comments PHOSPHORUS (BEAKER) (test code = 2.3 mg/dL 2.3-4.7 604) [id number] 06:10:00 Test Item Value Reference Range Interpretation Comments MAGNESIUM (BEAKER) (test code = 1.7 mg/dL 1.6-2.6 627) BASIC METABOLIC [id number] 06:10:00 Test Item Value Reference Range Interpretation [...] WBC 0-0 (BEAKER) (test code = 413) [id number] 03:34:00 Test Item Value Reference Range Interpretation Comments PHOSPHORUS (BEAKER) (test code = 2.5 mg/dL 2.3-4.7 604) [id number] 03:34:00 Test Item Value Reference Range Interpretation Comments MAGNESIUM (BEAKER) (test code = 1.9 mg/dL 1.6-2.6 627) BASIC METABOLIC [id number] 03:34:00 Test Item Value Reference Range Interpretation [...] RED BLOOD CELLS 0 /100 WBC 0-0 ([facility]) (test code = 413) POCT-GLUCOSE [id number] 11:42:00 Test Item Value Reference Range Interpretation Comments POC-GLUCOSE METER 129 mg/dL 70-110 H TESTED AT [facility] 67[address] ([facility]) (test code = RYNE Barnes [facility] 1538) [address] POCT-GLUCOSE [id number] 06:28:00 Test Item Value Reference Range Interpretation Comments POC-GLUCOSE METER 102 mg/dL 70-110 TESTED AT [facility] [address] ([facility]) (test code = RYNE Barnes [facility] 1538) [address] CT, [id number] 15:41:00FINAL REPORT CT abdomen and pelvis with [...] Previous cholecystectomy and hysterectomy. Signed: Dinesh Topete Verified Date/Time: 08/17/2018 15:41:17 Reading Location: [facility] Reading Room - [place] [address] STOOL CULTURE + SHIGA [id number] 15:37:00 Test Item Value Reference Range Interpretation Comments CULTURE (BEAKER) No Salmonella, Shigella (test code = 1095) or Campylobacter isolated POCT-GLUCOSE [id number] 08:25:00 Test Item Value Reference Range Interpretation Comments POC-GLUCOSE METER 197 mg/dL 70-110 H TESTED AT [facility] [address] (BEAKER) (test code = [place] 1538) [address] [id number] 05:59:00 Test Item Value Reference Range Interpretation Comments PHOSPHORUS (BEAKER) (test code = 3.6 mg/dL 2.3-4.7 604) [id number] 05:59:00 Test Item Value Reference Range Interpretation Comments MAGNESIUM (BEAKER) (test code = 2.3 mg/dL 1.6-2.6 627) BASIC METABOLIC [id number] 05:59:00 Test Item Value Reference Range Interpretation [...] APPLICABLE FOR DIALYSIS PATIEN TS. HEPATIC FUNCTION [id number] 05:59:00 Test Item Value Reference Range Interpretation [...] code = 41 U/L 6-55 347) POCT-GLUCOSE [id number] 21:05:00 Test Item Value Reference Range Interpretation Comments POC-GLUCOSE METER 148 mg/dL 70-110 H TESTED AT [place] [address] ([facility]) (test code = [place] 1538) [address] C. DIFFICILE GDH [id number] 15:59:00 Test Item Value Reference Range Interpretation Comments CDT TOXIN (test code Negative Negative = 8435091290) CDT GDH ANTIGEN (test Negative Negative No ind ication of code = [id number]) Clostridi um difficile infection and n o colonization. Discontinue ent leon isolation and t herapy. Testing performed by Player X Rapid Cassette Assay. For GDH, published sensitivity of the assay is 98.7% compared to cytotoxicity testing. For Toxin AB, published sensitivity is 87.8% and specificity 99.4% compared to cytotoxicity testing.Verification of kit performance was done by the [facility] Microbiology Lab prior to clinical use.SHIGA TOXIN [id number] 14:22:00 Test Item Value Reference Range Interpretation Comments SHIGA TOXIN 1 ([facility]) (test Not detected Not detected code = 2177) SHIGA TOXIN 2 ([facility]) (test Not detected Not detected code = 2179) POCT-GLUCOSE [id number] 13:13:00 Test Item Value Reference Range Interpretation Comments POC-GLUCOSE METER 119 mg/dL 70-110 H TESTED AT [facility] [address] ([facility]) (test code = [place] 1538) [address] STOOL PATH [id number] 10:03:00 Test Item Value Reference Range Interpretation Comments PATHOGEN EXAM CHARGED ([facility]) (test Done code = 2381) POCT-GLUCOSE [id number] 09:13:00 Test Item Value Reference Range Interpretation Comments POC-GLUCOSE METER 111 mg/dL 70-110 H TESTED AT [facility] [address] (BEAKER) (test code = [place] 1538) [address] [id number] 06:09:00 Test Item Value Reference Range Interpretation Comments PREALBUMIN (BEAKER) (test code = 36 mg/dL 14-45 586) CBC W/PLT COUNT & AUTO [id number] 06:02:00 Test Item Value Reference Range Interpretation [...] 0-1 PERCENT (BEAKER) (test code = 2801) [id number] 05:52:00 Test Item Value Reference Range Interpretation Comments PHOSPHORUS (BEAKER) (test code = 4.0 mg/dL 2.3-4.7 604) [id number] 05:52:00 Test Item Value Reference Range Interpretation Comments MAGNESIUM (BEAKER) (test code = 2.3 mg/dL 1.6-2.6 627) BASIC METABOLIC [id number] 05:52:00 Test Item Value Reference Range Interpretation [...] APPLICABLE FOR DIALYSIS PATIEN TS. HEPATIC FUNCTION [id number] 05:52:00 Test Item Value Reference Range Interpretation [...] code = 29 U/L 6-55 347) C-REACTIVE [id number] 05:52:00 Test Item Value Reference Range Interpretation Comments C-REACTIVE PROTEIN (BEAKER) (test 0.22 mg/dL 0.00-0.50 code = 676) POCT-GLUCOSE [id number] 23:39:00 Test Item Value Reference Range Interpretation Comments POC-GLUCOSE METER 122 mg/dL 70-110 H TESTED AT [facility] [address] ([facility] (test code = RYNE Barnes [facility] 1538) [address] CT, [id number] 04:05:00FINAL REPORT CLINICAL HISTORY: Acute abdominal pain, [...] MDReport Verified Date/Time: 07/21/2018 04:05:05 Reading Location: [address] Reading Room [id number] 22:00:00 Test Item Value Reference Range Interpretation Comments LIPASE (BEAKER) (test code = 749) 12 U/L 8-78 COMPREHENSIVE METABOLIC [id number] 22:00:00 Test Item Value Reference Range Interpretation [...] S NOT APPLICABLE FOR DIALYSIS PATIEN TS. [id number] 21:55:00 Test Item Value Reference Range Interpretation Comments PARTIAL THROMBOPLASTIN TIME 24.6 seconds 22.5-36.0 (BEAKER) (test code = 760) PROTHROMBIN [id number] 21:53:00 Test Item Value Reference Range Interpretation [...] PERCENT (BEAKER) (test code = 2801) Laboratory [id number] 20:37:00 Test Item Value Reference Range Interpretation Comments Urine Test Urine Test (test code = Urine Test) [facility]2019-03-14 09:23:00Surgical Pathology Report Case: [id number] Authorizing Provider: King Huynh MD Collected: 07/11/2018 0924 Ordering Location: [address] Received: 07/11/2018 1421 Service Pathologist: Linda [...] AND COMMENT) Signing Pathologist Direct Phone Line: [phone] signed by Linda Mullen MD on 07/12/2018 at 9:23 AMPatient's history of Crohn's disease is noted per Epic note dated 07/10/18. The current sampling shows no significant active or chronic colitis. This may represent complete histologic resolution following treatment. Clinical and endoscopic correlation is recommended.[id number] abdominal pain A. Random colon biopsy. B. [...] noted. No dysplasia or carcinoma is present.BLOOD [id number] 20:01:00 Test Item Value Reference Range Interpretation Comments CULTURE (BEAKER) (test No growth in 5 days code = 1095) BLOOD [id number] 20:01:00 Test Item Value Reference Range Interpretation Comments CULTURE (BEAKER) (test No growth in 5 days code = 1095) BASIC METABOLIC [id number] 04:55:00 Test Item Value Reference Range Interpretation [...] PATIEN TS. CBC W/PLT COUNT & AUTO [id number] 04:37:00 Test Item Value Reference Range Interpretation [...] (BEAKER) (test code = 2801) BASIC METABOLIC [id number] 06:15:00 Test Item Value Reference Range Interpretation [...] PATIEN TS. CBC W/PLT COUNT & AUTO [id number] 06:06:00 Test Item Value Reference Range Interpretation [...] code = 2801) STOOL CULTURE + SHIGA [id number] 12:15:00 Test Item Value Reference Range Interpretation Comments CULTURE (BEAKER) No Salmonella, Shigella (test code = 1095) or Campylobacter isolated BASIC METABOLIC [id number] 07:08:00 Test Item Value Reference Range Interpretation [...] PATIEN TS. CBC W/PLT COUNT & AUTO [id number] 06:42:00 Test Item Value Reference Range Interpretation [...] code = 2801) CT, ABDOMEN - PELVIS, [id number] 14:17:00Reason for exam:- >Evaluation of small bowel [...] lesion demonstrated. Endplate degenerative change at L1-2 dfbR92-S7 noted. There is an implanted pump in the right lower quadrant subcutaneous fat with a lead going to the thecal sac terminating at the T11 level. IMPRESSION: Evidence of acute colitis of the sigmoid colon. No small bowel enteritis demonstrated. No stricture, fistula, or intramesenteric abscess demonstrated. Signed: Ervin Johnson MDReport Verified Date/Time: 07/08/2018 14:17:31 Reading Location: [facility] C013X [facility] Consult Reading Room BAC METABOLIC [id number] 06:53:00 Test Item Value Reference Range Interpretation [...] PATIEN TS. CBC W/PLT COUNT & AUTO [id number] 06:25:00 Test Item Value Reference Range Interpretation [...] (BEAKER) (test code = 2801) SHIGA TOXIN [id number] 13:53:00 Test Item Value Reference Range Interpretation Comments SHIGA TOXIN 1 (BEAKER) (test Not detected Not detected code = 2177) SHIGA TOXIN 2 (BEAKER) (test Not detected Not detected code = 2179) C. DIFFICILE GDH [id number] 13:28:00 Test Item Value Reference Range Interpretation Comments CDT TOXIN (test code Negative Negative = 0344325020) CDT GDH ANTIGEN (test Negative Negative No ind ication of code = 6088134852) Clostridi um difficile infection and n o colonization. Discontinue ent leon isolation and t herapy. Testing performed by Player [employer] Rapid Cassette Assay. For GDH, published sensitivity of the assay is 98.7% compared to cytotoxicity testing. For Toxin AB, published sensitivity is 87.8% and specificity 99.4% compared to cytotoxicity testing.Verification of kit performance was done by the [facility] Microbiology Lab prior to clinical use.STOOL PATH [id number] 10:17:00 Test Item Value Reference Range Interpretation Comments PATHOGEN EXAM CHARGED (BEAKER) (test Done code = 2381) BASIC METABOLIC [id number] 05:17:00 Test Item Value Reference Range Interpretation [...] PATIEN TS. CBC W/PLT COUNT & AUTO [id number] 04:58:00 Test Item Value Reference Range Interpretation [...] = 2801) RAD, CHEST, 1 VIEW, NON [id number] 14:21:00Reason for exam:->FeverShould this be performed at the bedside?->YesFINAL REPORT TECHNIQUE: Frontal chest radiograph dated 07/06/2018. CLINICAL HISTORY: Fever COMPARISON STUDY: None IMPRESSION:Lungs are clear. No pleural effusion or pneumothorax. Cardiomediastinal silhouette is normal in size. No pulmonary edema. No fracture. Signed: Xiao Mckinneyeport Verified Date/Time: 07/06/2018 14:21:04 Reading Location: [facility] Radiology Reading Room D DRUG SCREEN, [id number] 12:52:00 Test Item Value Reference Range Interpretation [...] situations. Chain of custody not maintained. Some kzfs-kvp-hdvklzc medications, as well as adulterants, may cause inaccurate results. Clinical correlation should be applied. A more comprehensive drug screen or confirmation of a detected drug may be performed upon request.CBC W/PLT COUNT & AUTO [id number] 12:40:00 Test Item Value Reference Range Interpretation [...] 0-1 PERCENT (BEAKER) (test code = 2801) [id number] 12:12:00 Test Item Value Reference Range Interpretation Comments PHOSPHORUS (BEAKER) (test code = 3.0 mg/dL 2.3-4.7 604) [id number] 12:12:00 Test Item Value Reference Range Interpretation Comments MAGNESIUM (BEAKER) (test code = 2.1 mg/dL 1.6-2.6 627) BASIC METABOLIC [id number] 12:12:00 Test Item Value Reference Range Interpretation [...] APPLICABLE FOR DIALYSIS PATIEN TS. HEPATIC FUNCTION [id number] 12:12:00 Test Item Value Reference Range Interpretation [...] U/L 6-55 347) LACTIC ACID, VENOUS, WHOLE [id number] 12:08:00 Test Item Value Reference Range Interpretation Comments LACTATE BLOOD VENOUS 0.8 mmol/L 0.5-2.2 Specime n moderately (2) (BEAKER) (test hemolyzed code = 2516) URINALYSIS W/ REFLEX URINE [id number] 11:10:00 Test Item Value Reference Range Interpretation [...] 516) SOURCE(BEAKER) (test code = 2795) CHEM [id number] 21:40:00 Test Item Value Reference Range Interpretation Comments eGFR (test code = eGFR) 100 [facility] [employer] [id number] 21:40:00 Test Item Value Reference Range Interpretation Comments Potassium Lvl (test code = Potassium 3.2 3.5-5.1 Lvl) [facility] [employer] [id number] 21:40:00 Test Item Value Reference Range Interpretation Comments Sodium Lvl (test code = Sodium Lvl) 145 135-145 [facility] [employer] [id number] 21:40:00 Test Item Value Reference Range Interpretation Comments Creatinine Lvl (test code = Creatinine 0.73 0.50-1.40 Lvl) [facility] [employer] [id number] 21:40:00 Test Item Value Reference Range Interpretation Comments Chloride Lvl (test code = Chloride Lvl) 108 95-109 [facility] [employer] [id number] 21:40:00 Test Item Value Reference Range Interpretation Comments BUN (test code = BUN) 11 7-22 [facility] [employer] [id number] 21:40:00 Test Item Value Reference Range Interpretation Comments Albumin Lvl (test code = Albumin Lvl) 4.0 3.5-5.0 [facility] [employer] [id number] 21:40:00 Test Item Value Reference Range Interpretation Comments Total Protein (test code = Total 7.2 6.4-8.4 Protein) [facility]2017-10-21 21:40:00 Test Item Value Reference Range Interpretation Comments Calcium Lvl (test code = Calcium Lvl) 8.2 8.5-10.5 [facility]2017-10-21 21:40:00 Test Item Value Reference Range Interpretation Comments ALT (test code = ALT) 21 See_Comment [Auto mated message] The system which ge nerated this result transmit francine reference range : <=65. The reference range was not used to interpr et this result as angle l/abnormal. [facility]2017-10-21 21:40:00 Test Item Value Reference Range Interpretation Comments CO2 (test code = CO2) 28 24-32 [facility]2017-10-21 21:40:00 Test Item Value Reference Range Interpretation Comments Bili Total (test code = Bili Total) 0.5 0.2-1.3 [facility]2017-10-21 21:40:00 Test Item Value Reference Range Interpretation Comments Alk Phos (test code = Alk Phos) 54 39-136 [facility]2017-10-21 21:40:00 Test Item Value Reference Range Interpretation Comments AST (test code = AST) 12 See_Comment [Auto mated message] The system which ge nerated this result transmit francine reference range : <=37. The reference range was not used to interpr et this result as angel l/abnormal. [facility]2017-10-21 21:40:00 Test Item Value Reference Range Interpretation Comments Glucose Lvl (test code = Glucose Lvl) 98 70-99 [facility]2017-10-21 21:40:00 Test Item Value Reference Range Interpretation Comments Globulin (test code = Globulin) 3.2 2.7-4.2 [facility]2017-10-21 21:40:00 Test Item Value Reference Range Interpretation Comments A/G Ratio (test code = A/G Ratio) 1.2 0.7-1.6 [facility]2017-10-21 21:40:00 Test Item Value Reference Range Interpretation Comments AGAP (test code = AGAP) 12.2 10.0-20.0 [facility]2017-10-21 21:40:00 Test Item Value Reference Range Interpretation Comments B/C Ratio (test code = B/C Ratio) 15 6-25 [facility]2017-10-21 21:40:00 Test Item Value Reference Range Interpretation Comments Lipase Lvl (test code = Lipase Lvl) 178 73-393 [facility] CenterUecrrkaLRSOVNDHRO0531-81-63 21:40:00 Test Item Value Reference Range Interpretation Comments Basophils # (test code 0.0 See_Comment [Aut omated message] The = Basophils #) system which generated this result tra nsmitted reference range : <=0.2. The reference r markus was not used to int erpret this result as normal/abnormal . [facility] CenterQxgxhmtISIACVBJKO7407-58-93 21:40:00 Test Item Value Reference Range Interpretation Comments Monocytes # (test code 0.5 See_Comment [Aut omated message] The = Monocytes #) system which generated this result tra nsmitted reference range : <=0.8. The reference r markus was not used to int erpret this result as normal/abnormal . [facility] Cent[id number] 21:40:00 Test Item Value Reference Range Interpretation Comments Eosinophils # (test code 0.2 See_Comment [A utomated message] The = Eosinophils #) system whic h generated this result tra nsmitted reference range : <=0.5. The reference r markus was not used to int erpret this result as normal/abnormal . [facility] CenterXbzsdymBEFELGFMIS2443-97-47 21:40:00 Test Item Value Reference Range Interpretation Comments Segs-Bands # (test code = Segs-Bands #) 6.9 1.5-8.1 [facility] CenterSbmtztvEDVSSSGXQM6626-96-13 21:40:00 Test Item Value Reference Range Interpretation Comments Lymphocytes # (test code = Lymphocytes 3.0 1.0-5.5 #) [facility] Cent[id number] 21:40:00 Test Item Value Reference Range Interpretation Comments Basophils (test code = 0.4 See_Comment [Aut omated message] The Basophils) system which ge nerated this result tra nsmitted reference range : <=1.0. The reference r markus was not used to int erpret this result as normal/abnormal . [facility] CenterGrhmjeoMUYAYCGLAN5233-04-42 21:40:00 Test Item Value Reference Range Interpretation Comments Lymphocytes (test code = Lymphocytes) 28.1 20.0-40.0 [facility] CenterKbgsbnaUFANBGIZEZ1409-00-87 21:40:00 Test Item Value Reference Range Interpretation Comments Monocytes (test code = Monocytes) 4.9 2.0-12.0 [facility] CenterOqbmwkmCKTKEXRIHE3349-73-24 21:40:00 Test Item Value Reference Range Interpretation Comments Eosinophils (test code = 1.6 See_Comment [A utomated message] The Eosinophils) system which ge nerated this result tra nsmitted reference range : <=4.0. The reference r markus was not used to int erpret this result as normal/abnormal . [facility] CenterGhokuauXHAYXQUDZF6440-66-44 21:40:00 Test Item Value Reference Range Interpretation Comments Segs (test code = Segs) 65.0 45.0-75.0 [facility] CenterMgusrbeTODIDKDLOE3571-53-10 21:40:00 Test Item Value Reference Range Interpretation Comments Platelet (test code = Platelet) 342 133-450 [facility] CenterQxthwurNDMRMSJOBW6718-48-53 21:40:00 Test Item Value Reference Range Interpretation Comments MPV (test code = MPV) 6.9 7.4-10.4 [facility] CenterPotfasvGGNCBDFSHQ8375-45-70 21:40:00 Test Item Value Reference Range Interpretation Comments Hgb (test code = Hgb) 13.8 12.0-16.0 [facility] CenterCsebtkuNAPLAQUHAK5034-43-06 21:40:00 Test Item Value Reference Range Interpretation Comments Hct (test code = Hct) 41.9 36.0-48.0 [facility] CenterElpnhevSTROFVRQPS0615-87-89 21:40:00 Test Item Value Reference Range Interpretation Comments MCV (test code = MCV) 95.4 80.0-98.0 [facility] CenterZcovbmqNZCSLZRKTN5038-99-77 21:40:00 Test Item Value Reference Range Interpretation Comments MCH (test code = MCH) 31.4 pg 27.0-31.0 [facility] CenterSnoljjgWAODZSFNOX1774-56-23 21:40:00 Test Item Value Reference Range Interpretation Comments MCHC (test code = MCHC) 32.9 32.0-36.0 [facility] CenterEecnrweCHXJVLRLZX3420-76-36 21:40:00 Test Item Value Reference Range Interpretation Comments RDW (test code = RDW) 14.0 11.5-14.5 [facility] CenterHlcvmbrARWDLKDPTV7334-04-46 21:40:00 Test Item Value Reference Range Interpretation Comments WBC (test code = WBC) 10.6 3.7-10.4 [facility] CenterJtxqsxuIOVLLNCMHG4922-44-40 21:40:00 Test Item Value Reference Range Interpretation Comments RBC (test code = RBC) 4.39 4.20-5.40 [facility] AND [id number] 21:40:00 Test Item Value Reference Range Interpretation Comments UA Urobilinogen (test code = UA <=1.0 mg/dL 0.1-1.0 Urobilinogen) [facility] AND [id number] 21:40:00 Test Item Value Reference Range Interpretation Comments UA WBC (test code = 4 See_Comment [Automa francine message] The UA WBC) system which ge nerated this result transmit francine reference range : <=5. The reference range was not used to interpr et this result as angel l/abnormal. [facility] AND [id number] 21:40:00 Test Item Value Reference Range Interpretation Comments UA RBC (test code = 6 See_Comment [Automa francine message] The UA RBC) system which ge nerated this result transmit francine reference range : <=2. The reference range was not used to interpr et this result as angel l/abnormal. [facility] AND [id number] 21:40:00 Test Item Value Reference Range Interpretation Comments UA Mucus (test code = UA Mucus) Many /LPF [facility] AND [id number] 21:40:00 Test Item Value Reference Range Interpretation Comments UA pH (test code = UA pH) 5.0 5.0-8.0 [facility] AND [id number] 21:40:00 Test Item Value Reference Range Interpretation Comments UA Protein (test code = UA Protein) 30 mg/dL [facility] AND [id number] 21:40:00 Test Item Value Reference Range Interpretation Comments UA Glucose (test code = UA Negative mg/dL Glucose) [facility] AND [id number] 21:40:00 Test Item Value Reference Range Interpretation Comments UA Ketones (test code = UA Ketones) 20 mg/dL [facility] AND [id number] 21:40:00 Test Item Value Reference Range Interpretation Comments UA Blood (test code = Negative (02/18/17 4:40 UA Blood) PM) [facility] AND [id number] 21:40:00 Test Item Value Reference Range Interpretation Comments UA Nitrite (test code Negative (02/18/17 4:40 = UA Nitrite) PM) [facility] AND [id number] 21:40:00 Test Item Value Reference Range Interpretation Comments UA Bili (test code = Negative *NA*(02/18/17 UA Bili) 4:40 PM) [facility] AND [id number] 21:40:00 Test Item Value Reference Range Interpretation Comments UA Color (test code = Dark Yellow UA Color) *NA*(02/18/17 4:40 PM) [facility] AND [id number] 21:40:00 Test Item Value Reference Range Interpretation Comments UA Turbidity (test code Slight *ABN*(02/18/17 = UA Turbidity) 4:40 PM) [facility] AND [id number] 21:40:00 Test Item Value Reference Range Interpretation Comments UA Spec Grav (test code = UA Spec Grav) 1.024 [facility] AND [id number] 21:40:00 Test Item Value Reference Range Interpretation Comments UA Sq Epi (test code = UA Sq Occasional /LPF Epi) [facility] AND [id number] 21:40:00 Test Item Value Reference Range Interpretation Comments UA Leuk Est (test Negative (02/18/17 4:40 code = UA Leuk Est) PM) [facility] [id number] 10:52:00 Test Item Value Reference Range Interpretation Comments Phosphorus (test code = Phosphorus) 2.7 2.5-4.5 [facility] [id number] 10:52:00 Test Item Value Reference Range Interpretation Comments Magnesium Lvl (test code = Magnesium 2.2 1.8-2.4 Lvl) [facility] CenterRxmiycuJSCURZPDWIZA3815-19-21 10:52:00 Test Item Value Reference Range Interpretation Comments Chloride Lvl (test code = Chloride Lvl) 109 95-109 [facility] CenterKzploidHFIXCMDUKNHD3715-55-71 10:52:00 Test Item Value Reference Range Interpretation Comments Calcium Lvl (test code = Calcium Lvl) 8.3 8.5-10.5 [facility]uvtxvyVGBXBBDYHYOX7725-16-68 10:52:00 Test Item Value Reference Range Interpretation Comments AGAP (test code = AGAP) 10.6 10.0-20.0 [facility] HospitalDntylmySTIHWHWQUWVE3237-57-12 10:52:00 Test Item Value Reference Range Interpretation Comments Glucose Lvl (test code = Glucose Lvl) 88 70-99 [facility] HospitalIpjaygpJGRQFMGOUKEF6920-36-75 10:52:00 Test Item Value Reference Range Interpretation Comments Sodium Lvl (test code = Sodium Lvl) 144 135-145 [facility] HospitalUchxfclWWKHBVOLSZWK9276-66-03 10:52:00 Test Item Value Reference Range Interpretation Comments Potassium Lvl (test code = Potassium 3.6 3.5-5.1 Lvl) [facility] HospitalKrsulhbZTUEYRMKHCBV8109-45-63 10:52:00 Test Item Value Reference Range Interpretation Comments BUN (test code = BUN) 6 7-22 [facility] HospitalHrnyxrkGGIPDPAECEUD0874-09-00 10:52:00 Test Item Value Reference Range Interpretation Comments Creatinine Lvl (test code = Creatinine 0.61 0.50-1.40 Lvl) [facility] HospitalZyisvpdVGEOMEVFMQEH8987-22-12 10:52:00 Test Item Value Reference Range Interpretation Comments CO2 (test code = CO2) 28 24-32 [facility] HospitalBrzlmcyCGRIZVHNDCRN8496-48-08 10:52:00 Test Item Value Reference Range Interpretation Comments eGFR (test code = eGFR) 110 [facility]2017-06-12 09:37:00 Test Item Value Reference Range Interpretation Comments eGFR (test code = eGFR) 110 [facility]2017-06-12 09:37:00 Test Item Value Reference Range Interpretation Comments Sodium Lvl (test code = Sodium Lvl) 140 135-145 [facility]2017-06-12 09:37:00 Test Item Value Reference Range Interpretation Comments Creatinine Lvl (test code = Creatinine 0.61 0.50-1.40 Lvl) [facility]2017-06-12 09:37:00 Test Item Value Reference Range Interpretation Comments Chloride Lvl (test code = Chloride Lvl) 106 95-109 [facility]2017-06-12 09:37:00 Test Item Value Reference Range Interpretation Comments Potassium Lvl (test code = Potassium 3.7 3.5-5.1 Lvl) [facility]2017-06-12 09:37:00 Test Item Value Reference Range Interpretation Comments CO2 (test code = CO2) 31 24-32 [facility]2017-06-12 09:37:00 Test Item Value Reference Range Interpretation Comments Calcium Lvl (test code = Calcium Lvl) 8.4 8.5-10.5 [facility]2017-06-12 09:37:00 Test Item Value Reference Range Interpretation Comments AGAP (test code = AGAP) 6.7 10.0-20.0 [facility]2017-06-12 09:37:00 Test Item Value Reference Range Interpretation Comments BUN (test code = BUN) 9 7-22 [facility]2017-06-12 09:37:00 Test Item Value Reference Range Interpretation Comments Glucose Lvl (test code = Glucose Lvl) 98 70-99 [facility] CenterGhfgtniTFVCETQLBB5324-92-61 09:37:00 Test Item Value Reference Range Interpretation Comments Hgb (test code = Hgb) 11.8 12.0-16.0 [facility] CenterWrslqjtLLAHZFLRPW8509-21-34 09:37:00 Test Item Value Reference Range Interpretation Comments WBC (test code = WBC) 8.0 3.7-10.4 [facility] CenterBkpajhuHCIGOOQLOG3735-76-17 09:37:00 Test Item Value Reference Range Interpretation Comments MCH (test code = MCH) 30.2 pg 27.0-31.0 [facility] CenterQdmmcbyALMTTVTDGW8353-03-87 09:37:00 Test Item Value Reference Range Interpretation Comments RBC (test code = RBC) 3.90 4.20-5.40 [facility] CenterLkjodslZNQAZWSKCI5281-62-11 09:37:00 Test Item Value Reference Range Interpretation Comments Hct (test code = Hct) 36.5 36.0-48.0 [facility] CenterXinosbqLVLJHOJIBI3323-17-29 09:37:00 Test Item Value Reference Range Interpretation Comments MCV (test code = MCV) 93.6 80.0-98.0 [facility] CenterZorwswiBQWJNGRDJC2918-41-21 09:37:00 Test Item Value Reference Range Interpretation Comments RDW (test code = RDW) 14.7 11.5-14.5 [place] [address]-06-12 09:37:00 Test Item Value Reference Range Interpretation Comments MPV (test code = MPV) 6.6 7.4-10.4 [facility] CenterTexgjnkANUFCKEYQS7837-06-61 09:37:00 Test Item Value Reference Range Interpretation Comments MCHC (test code = MCHC) 32.3 32.0-36.0 [facility] CenterFiigszdGCQYVJPMMG5329-49-66 09:37:00 Test Item Value Reference Range Interpretation Comments Platelet (test code = Platelet) 290 133-450 [facility] CenterGenvvkbOFBBXJHOZI8719-63-51 09:37:00 Test Item Value Reference Range Interpretation Comments Basophils # (test code 0.0 See_Comment [Aut omated message] The = Basophils #) system which generated this result tra nsmitted reference range : <=0.2. The reference r markus was not used to int erpret this result as normal/abnormal . [facility] CenterOrpnhwgBUDUSUKJOD5623-34-38 09:37:00 Test Item Value Reference Range Interpretation Comments Monocytes (test code = Monocytes) 5.3 2.0-12.0 [facility] CenterScnhdftSWNJXCNLDZ0809-46-21 09:37:00 Test Item Value Reference Range Interpretation Comments Lymphocytes (test code = Lymphocytes) 28.2 20.0-40.0 [facility] CenterOzwndvyFOQKZPZASI8894-12-28 09:37:00 Test Item Value Reference Range Interpretation Comments Segs (test code = Segs) 64.9 45.0-75.0 [facility] CenterYemczszHFHTYJOVMV9713-59-18 09:37:00 Test Item Value Reference Range Interpretation Comments Eosinophils (test code = 1.4 See_Comment [A utomated message] The Eosinophils) system which ge nerated this result tra nsmitted reference range : <=4.0. The reference r markus was not used to int erpret this result as normal/abnormal . [facility] CenterRynywpiUTYJTIHPJF4750-56-14 09:37:00 Test Item Value Reference Range Interpretation Comments Basophils (test code = 0.2 See_Comment [Aut omated message] The Basophils) system which ge nerated this result tra nsmitted reference range : <=1.0. The reference r markus was not used to int erpret this result as normal/abnormal . [facility] CenterNhaxtxnVVTNEEJEVO7514-49-46 09:37:00 Test Item Value Reference Range Interpretation Comments Lymphocytes # (test code = Lymphocytes 2.3 1.0-5.5 #) [facility]ScvstauOXZAYGHMIV8465-46-64 09:37:00 Test Item Value Reference Range Interpretation Comments Eosinophils # (test code 0.1 See_Comment [A utomated message] The = Eosinophils #) system whic h generated this result tra nsmitted reference range : <=0.5. The reference r markus was not used to int erpret this result as normal/abnormal . [facility]FpgpawjTSBPXOKJNR6574-17-80 09:37:00 Test Item Value Reference Range Interpretation Comments Segs-Bands # (test code = Segs-Bands #) 5.2 1.5-8.1 [facility] CenterUmddqerGQURQERZSZ0747-09-50 09:37:00 Test Item Value Reference Range Interpretation Comments Monocytes # (test code 0.4 See_Comment [Aut omated message] The = Monocytes #) system which generated this result tra nsmitted reference range : <=0.8. The reference r markus was not used to int erpret this result as normal/abnormal . [facility] CenterannMOLECULAR IZDITZAFLI6110-25-59 08:26:00 Test Item Value Reference Range Interpretation Comments C difficile DNA (test Positive code = C difficile DNA) 1*ABN*(10/10/16 3:26 AM) [facility]ann[facility] [id number] 08:26:00 Test Item Value Reference Range Interpretation Comments Fecal Leukocyte (test None Seen (10/10/16 code = Fecal Leukocyte) 3:26 AM) [facility]CHE[facility] [id number] 04:11:00 Test Item Value Reference Range Interpretation Comments B/C Ratio (test code = B/C Ratio) 13 6-25 [facility]CHE[facility] [id number] 04:11:00 Test Item Value Reference Range Interpretation Comments AGAP (test code = AGAP) 10.6 10.0-20.0 [facility]CHE[facility] [id number] 04:11:00 Test Item Value Reference Range Interpretation Comments Globulin (test code = Globulin) 3.7 2.7-4.2 [facility]CHE[facility] [id number] 04:11:00 Test Item Value Reference Range Interpretation Comments A/G Ratio (test code = A/G Ratio) 1.1 0.7-1.6 [facility]2017-06-12 04:11:00 Test Item Value Reference Range Interpretation Comments Bili Total (test code = Bili Total) 0.2 0.2-1.3 [facility]2017-06-12 04:11:00 Test Item Value Reference Range Interpretation Comments AST (test code = AST) 13 See_Comment [Auto mated message] The system which ge nerated this result transmit francine reference range : <=37. The reference range was not used to interpr et this result as angel l/abnormal. [facility]2017-06-12 04:11:00 Test Item Value Reference Range Interpretation Comments Alk Phos (test code = Alk Phos) 110 39-136 [facility]2017-06-12 04:11:00 Test Item Value Reference Range Interpretation Comments eGFR (test code = eGFR) 82 [facility]2017-06-12 04:11:00 Test Item Value Reference Range Interpretation Comments Creatinine Lvl (test code = Creatinine 0.86 0.50-1.40 Lvl) [facility]2017-06-12 04:11:00 Test Item Value Reference Range Interpretation Comments CO2 (test code = CO2) 34 24-32 [facility]2017-06-12 04:11:00 Test Item Value Reference Range Interpretation Comments Calcium Lvl (test code = Calcium Lvl) 9.5 8.5-10.5 [facility]2017-06-12 04:11:00 Test Item Value Reference Range Interpretation Comments Glucose Lvl (test code = Glucose Lvl) 125 70-99 [facility]2017-06-12 04:11:00 Test Item Value Reference Range Interpretation Comments BUN (test code = BUN) 11 7-22 [facility]2017-06-12 04:11:00 Test Item Value Reference Range Interpretation Comments Potassium Lvl (test code = Potassium 3.6 3.5-5.1 Lvl) [facility]2017-06-12 04:11:00 Test Item Value Reference Range Interpretation Comments Sodium Lvl (test code = Sodium Lvl) 140 135-145 [facility]2017-06-12 04:11:00 Test Item Value Reference Range Interpretation Comments Chloride Lvl (test code = Chloride Lvl) 99 95-109 [facility]2017-06-12 04:11:00 Test Item Value Reference Range Interpretation Comments Total Protein (test code = Total 7.8 6.4-8.4 Protein) [facility]2017-06-12 04:11:00 Test Item Value Reference Range Interpretation Comments Albumin Lvl (test code = Albumin Lvl) 4.1 3.5-5.0 [facility]2017-06-12 04:11:00 Test Item Value Reference Range Interpretation Comments ALT (test code = ALT) 18 See_Comment [Auto mated message] The system which ge nerated this result transmit francine reference range : <=65. The reference range was not used to interpr et this result as angel l/abnormal. [place] [address]2017-06-12 04:11:00 Test Item Value Reference Range Interpretation Comments hCG Tot (test code = hCG Tot) no gt [facility] CenterWytnqnaACAHASOVDA4752-62-64 04:11:00 Test Item Value Reference Range Interpretation Comments Segs-Bands # (test code = Segs-Bands #) 7.5 1.5-8.1 [facility] CenterGuiltegEPFDGTLNEN8360-32-91 04:11:00 Test Item Value Reference Range Interpretation Comments Segs (test code = Segs) 67.9 45.0-75.0 [facility]VpbjpnrEJWCJVQAZR3767-79-39 04:11:00 Test Item Value Reference Range Interpretation Comments Eosinophils (test code = 1.4 See_Comment [A utomated message] The Eosinophils) system which ge nerated this result tra nsmitted reference range : <=4.0. The reference r markus was not used to int erpret this result as normal/abnormal . [facility] CenterKvudftkCJZXGZJGOU6804-98-77 04:11:00 Test Item Value Reference Range Interpretation Comments Monocytes (test code = Monocytes) 4.5 2.0-12.0 [facility] CenterKhjitkeSPCVBKBDDU2507-48-27 04:11:00 Test Item Value Reference Range Interpretation Comments Basophils (test code = 0.3 See_Comment [Aut omated message] The Basophils) system which ge nerated this result tra nsmitted reference range : <=1.0. The reference r markus was not used to int erpret this result as normal/abnormal . [facility] CenterUtpurfuUWRQNKBSST4800-40-16 04:11:00 Test Item Value Reference Range Interpretation Comments Lymphocytes (test code = Lymphocytes) 25.9 20.0-40.0 [facility] CenterXyfnybeTLWEAONXTP6439-81-20 04:11:00 Test Item Value Reference Range Interpretation Comments Eosinophils # (test code 0.2 See_Comment [A utomated message] The = Eosinophils #) system whic h generated this result tra nsmitted reference range : <=0.5. The reference r markus was not used to int erpret this result as normal/abnormal . [facility] CenterKrnbipbTOOAOAGZJV7927-89-51 04:11:00 Test Item Value Reference Range Interpretation Comments Lymphocytes # (test code = Lymphocytes 2.9 1.0-5.5 #) [facility] CenterShfafxuJMDZGGNITA2645-16-05 04:11:00 Test Item Value Reference Range Interpretation Comments Monocytes # (test code 0.5 See_Comment [Aut omated message] The = Monocytes #) system which generated this result tra nsmitted reference range : <=0.8. The reference r markus was not used to int erpret this result as normal/abnormal . [facility] CenterUvrqoydOPRTCBSTXI9339-81-03 04:11:00 Test Item Value Reference Range Interpretation Comments Basophils # (test code 0.0 See_Comment [Aut omated message] The = Basophils #) system which generated this result tra nsmitted reference range : <=0.2. The reference r markus was not used to int erpret this result as normal/abnormal . [facility] CenterIzocvlgKSYAOFQHZT2749-78-64 04:11:00 Test Item Value Reference Range Interpretation Comments MCHC (test code = MCHC) 32.7 32.0-36.0 [facility] CenterJktlvnyMECUXKFJWS4812-17-66 04:11:00 Test Item Value Reference Range Interpretation Comments MCH (test code = MCH) 30.5 pg 27.0-31.0 [facility] CenterDgbswpnYCRNNRBDEP5784-29-39 04:11:00 Test Item Value Reference Range Interpretation Comments RBC (test code = RBC) 4.68 4.20-5.40 [facility] CenterYzdynqsGSDHUQETNR7302-19-16 04:11:00 Test Item Value Reference Range Interpretation Comments WBC (test code = WBC) 11.1 3.7-10.4 [facility] CenterZzqiclrONCUWKOENI1020-01-97 04:11:00 Test Item Value Reference Range Interpretation Comments MCV (test code = MCV) 93.4 80.0-98.0 [facility] CenterGixajhuUAYYMBXYIA4855-45-43 04:11:00 Test Item Value Reference Range Interpretation Comments Hgb (test code = Hgb) 14.3 12.0-16.0 [facility] CenterMdtvrumEOAUJOVZXC8563-13-22 04:11:00 Test Item Value Reference Range Interpretation Comments Hct (test code = Hct) 43.7 36.0-48.0 [facility] CenterJaqhgubSDOGBHKAAP2317-42-53 04:11:00 Test Item Value Reference Range Interpretation Comments Platelet (test code = Platelet) 396 133-450 [facility] CenterBqoimakVZBMSYAVDP2564-43-89 04:11:00 Test Item Value Reference Range Interpretation Comments RDW (test code = RDW) 14.9 11.5-14.5 [facility] CenterBqojaiwSILHPISYTK1093-39-73 04:11:00 Test Item Value Reference Range Interpretation Comments MPV (test code = MPV) 7.0 7.4-10.4 [facility] AND [id number] 04:11:00 Test Item Value Reference Range Interpretation Comments UA Spec Grav (test code = UA Spec Grav) 1.020 [facility] AND [id number] 04:11:00 Test Item Value Reference Range Interpretation Comments UA Urobilinogen (test code = UA <=1.0 mg/dL 0.1-1.0 Urobilinogen) [facility] AND [id number] 04:11:00 Test Item Value Reference Range Interpretation Comments UA Trans Epi (test code = UA Trans Epi) 4 [facility] AND [id number] 04:11:00 Test Item Value Reference Range Interpretation Comments UA Leuk Est (test Negative (10/09/16 11:11 code = UA Leuk Est) PM) [facility] AND [id number] 04:11:00 Test Item Value Reference Range Interpretation Comments UA Ketones (test code = UA Negative mg/dL Ketones) [facility] AND [id number] 04:11:00 Test Item Value Reference Range Interpretation Comments UA Blood (test code = Negative (10/09/16 11:11 UA Blood) PM) [facility] AND [id number] 04:11:00 Test Item Value Reference Range Interpretation Comments UA Bili (test code = Negative *NA*(10/09/16 UA Bili) 11:11 PM) [facility] AND [id number] 04:11:00 Test Item Value Reference Range Interpretation Comments UA Nitrite (test code Negative (10/09/16 11:11 = UA Nitrite) PM) [facility] AND [id number] 04:11:00 Test Item Value Reference Range Interpretation Comments UA Sq Epi (test code = UA Sq Occasional /LPF Epi) [facility] AND [id number] 04:11:00 Test Item Value Reference Range Interpretation Comments UA RBC (test code = 2 See_Comment [Automa francine message] The UA RBC) system which ge nerated this result transmit francine reference range : <=2. The reference range was not used to interpr et this result as angel l/abnormal. [facility] AND [id number] 04:11:00 Test Item Value Reference Range Interpretation Comments UA Mucus (test code = UA Mucus) Few /LPF [facility] AND [id number] 04:11:00 Test Item Value Reference Range Interpretation Comments UA Hyal Cast (test 4 See_Comment [Automat ed message] The code = UA Hyal Cast) system which generated this result transmit francine reference range : <=2. The reference range was not used to interpr et this result as angel l/abnormal. [facility] AND [id number] 04:11:00 Test Item Value Reference Range Interpretation Comments UA Amorph Priti (test code = Occasional /HPF UA Amorph Priti) [facility] AND [id number] 04:11:00 Test Item Value Reference Range Interpretation Comments UA Turbidity (test code Marked *ABN*(10/09/16 = UA Turbidity) 11:11 PM) [facility] AND [id number] 04:11:00 Test Item Value Reference Range Interpretation Comments UA Color (test code = Dark Yellow UA Color) *NA*(10/09/16 11:11 PM) [facility] AND [id number] 04:11:00 Test Item Value Reference Range Interpretation Comments UA pH (test code = UA pH) 8.0 5.0-8.0 [facility] AND [id number] 04:11:00 Test Item Value Reference Range Interpretation Comments UA Glucose (test code = UA Negative mg/dL Glucose) [facility] [id number] 04:11:00 Test Item Value Reference Range Interpretation Comments UA Protein (test code = UA Protein) 100 mg/dL [facility] ABDOMEN/PELVIS [id number] 14:26:[address] [id number] IMAGING REPORTPat ient Name: Manuel DEL TORO of Service: [id number]: 45 Sex: F Order #: [id number] Room: ERSDOB: 1970 X-Ray Number: [id number] Record Number: [id number] Hospital Number: [id number] Physician: KISHAN MUNOZ -Ordering Physician: HERNANDEZ MONTEMAYOR [...] authenticated by TIFFANIE Espinosa 2016-07-26 14:23:48CT ABDOMEN/PELVIS [id number] 02:49:[address] [id number] IMAGING REPORTPatient Name: Manuel DEL TORO of Service: [id number]: 45 Sex: F Order #: [id number] Room: 236/ A 2NEDOB: 1970 X-Ray Number: [id number] Record Number: [id number] Hospital Number: [id number] Physician: BLAKE ALLEN -Ordering Physician: AURORA LOWERY [...] MARTINEZ VALDEZ 2016-07-17 02:47:19ABDOMANDRIY 2 VIEWS 2016-07-15 12:14:[address] [id number] IMAGING REPORTPatient Name: Manuel DEL TORO of Service: [id number]: 45 Sex: F Order #: [id number] Room: ERSDOB: 1970 X-Ray Number: [id number] Record Number: [id number] Hospital Number: [id number] Physician: ANMOL TEJEDAOrdering Physician: Elvis GARCIA 2 [...] 12:12 PMLegally authenticated by RAFA GALVAN 2016-07-15 12:12:28[id number] 19:01:00 Test Item Value Reference Range Interpretation Comments Sodium Lvl (test code = Sodium Lvl) 137 135-145 [facility]2016-10-12 19:01:00 Test Item Value Reference Range Interpretation Comments Glucose Lvl (test code = Glucose Lvl) 91 70-99 [facility]2016-10-12 19:01:00 Test Item Value Reference Range Interpretation Comments BUN (test code = BUN) 8 7-22 [facility]2016-10-12 19:01:00 Test Item Value Reference Range Interpretation Comments Albumin Lvl (test code = Albumin Lvl) 3.2 3.5-5.0 [facility]2016-10-12 19:01:00 Test Item Value Reference Range Interpretation Comments Total Protein (test code = Total 7.6 6.4-8.4 Protein) [facility]2016-10-12 19:01:00 Test Item Value Reference Range Interpretation Comments CO2 (test code = CO2) 26 24-32 [facility]2016-10-12 19:01:00 Test Item Value Reference Range Interpretation Comments Calcium Lvl (test code = Calcium Lvl) 8.4 8.5-10.5 [facility]2016-10-12 19:01:00 Test Item Value Reference Range Interpretation Comments Chloride Lvl (test code = Chloride Lvl) 104 95-109 [facility]2016-10-12 19:01:00 Test Item Value Reference Range Interpretation Comments AGAP (test code = AGAP) 11.3 10.0-20.0 [facility]2016-10-12 19:01:00 Test Item Value Reference Range Interpretation Comments A/G Ratio (test code = A/G Ratio) 0.7 0.7-1.6 [facility]2016-10-12 19:01:00 Test Item Value Reference Range Interpretation Comments Globulin (test code = Globulin) 4.4 2.7-4.2 [facility]2016-10-12 19:01:00 Test Item Value Reference Range Interpretation Comments B/C Ratio (test code = B/C Ratio) 11 6-25 [facility] CenterMdtmwzjDRLJFIOVPN7139-33-19 19:01:00 Test Item Value Reference Range Interpretation Comments MPV (test code = MPV) 7.0 7.4-10.4 [facility] CenterDbgqtcaBHOFKCYVVR0856-87-48 19:01:00 Test Item Value Reference Range Interpretation Comments Platelet (test code = Platelet) 340 133-450 [facility] CenterRmqbqciBKDZPQAKJT9778-99-18 19:01:00 Test Item Value Reference Range Interpretation Comments RDW (test code = RDW) 13.9 11.5-14.5 [facility] CenterGcprflwOEQATNXRTK1887-41-55 19:01:00 Test Item Value Reference Range Interpretation Comments MCH (test code = MCH) 30.2 pg 27.0-31.0 [facility] CenterPxqgsibQDGBIEQQKN9163-21-44 19:01:00 Test Item Value Reference Range Interpretation Comments MCHC (test code = MCHC) 33.4 32.0-36.0 [facility] CenterWjnqvkqYQOLWCRCGB5103-85-33 19:01:00 Test Item Value Reference Range Interpretation Comments WBC (test code = WBC) 11.0 3.7-10.4 [facility] CenterIidpyqjNPXKVYYEEV6452-16-46 19:01:00 Test Item Value Reference Range Interpretation Comments MCV (test code = MCV) 90.4 80.0-98.0 [facility] CenterHefqzocSKVGLUEEQF8657-69-67 19:01:00 Test Item Value Reference Range Interpretation Comments Hct (test code = Hct) 43.3 36.0-48.0 [facility] CenterZeyiwzxUEPGRKFPIJ7423-69-58 19:01:00 Test Item Value Reference Range Interpretation Comments Hgb (test code = Hgb) 14.5 12.0-16.0 [facility] CenterWshramnKCIXASQZYA2675-70-83 19:01:00 Test Item Value Reference Range Interpretation Comments RBC (test code = RBC) 4.79 4.20-5.40 [facility] CenterBmtnjzgMHGKUJILIS8907-40-71 19:01:00 Test Item Value Reference Range Interpretation Comments Basophils (test code = 0.9 See_Comment [Aut omated message] The Basophils) system which ge nerated this result tra nsmitted reference range : <=1.0. The reference r markus was not used to int erpret this result as normal/abnormal . [facility] CenterXhtvumwEMNLSTYBGL7665-12-55 19:01:00 Test Item Value Reference Range Interpretation Comments Segs-Bands # (test code = Segs-Bands #) 7.4 1.5-8.1 [facility] CenterBorhnrnJPOTZQEHGU9866-36-38 19:01:00 Test Item Value Reference Range Interpretation Comments Eosinophils (test code = 1.6 See_Comment [A utomated message] The Eosinophils) system which ge nerated this result tra nsmitted reference range : <=4.0. The reference r markus was not used to int erpret this result as normal/abnormal . [facility] CenterFdpylgtSTMWPTKCFD7372-16-43 19:01:00 Test Item Value Reference Range Interpretation Comments Monocytes (test code = Monocytes) 5.0 2.0-12.0 [facility] CenterDphzgpfDOFKJNYBSM6060-17-23 19:01:00 Test Item Value Reference Range Interpretation Comments Lymphocytes (test code = Lymphocytes) 25.2 20.0-40.0 [facility] CenterFzaartyPIGUNCPGXS7198-00-07 19:01:00 Test Item Value Reference Range Interpretation Comments Eosinophils # (test code 0.2 See_Comment [A utomated message] The = Eosinophils #) system whic h generated this result tra nsmitted reference range : <=0.5. The reference r markus was not used to int erpret this result as normal/abnormal . [facility] CenterCqahrlzSNMPKGSBWY0985-30-87 19:01:00 Test Item Value Reference Range Interpretation Comments Basophils # (test code 0.1 See_Comment [Aut omated message] The = Basophils #) system which generated this result tra nsmitted reference range : <=0.2. The reference r markus was not used to int erpret this result as normal/abnormal . [facility] CenterSbzrgvtKGSZHGMYHY4602-09-23 19:01:00 Test Item Value Reference Range Interpretation Comments Monocytes # (test code 0.6 See_Comment [Aut omated message] The = Monocytes #) system which generated this result tra nsmitted reference range : <=0.8. The reference r markus was not used to int erpret this result as normal/abnormal . [facility] CenterAuettxpWNRFBLVZAX0601-23-04 19:01:00 Test Item Value Reference Range Interpretation Comments Lymphocytes # (test code = Lymphocytes 2.8 1.0-5.5 #) [facility] CenterNrecpdjPAQHFLQHEY1410-73-79 19:01:00 Test Item Value Reference Range Interpretation Comments Segs (test code = Segs) 67.3 45.0-75.0 [facility]2016-10-12 19:01:00 Test Item Value Reference Range Interpretation Comments Lactic Acid Lvl (test code = Lactic 2.1 0.5-2.2 Acid Lvl) [facility]2016-10-12 19:01:00 Test Item Value Reference Range Interpretation Comments eGFR (test code = eGFR) 97 [facility]2016-10-12 19:01:00 Test Item Value Reference Range Interpretation Comments Bili Total (test code = Bili Total) 0.3 0.2-1.3 [place] [id number] 19:01:00 Test Item Value Reference Range Interpretation Comments Alk Phos (test code = Alk Phos) 98 39-136 [facility]2016-10-12 19:01:00 Test Item Value Reference Range Interpretation Comments AST (test code = AST) 24 See_Comment [Auto mated message] The system which ge nerated this result transmit francine reference range : <=37. The reference range was not used to interpr et this result as angel l/abnormal. [facility]2016-10-12 19:01:00 Test Item Value Reference Range Interpretation Comments ALT (test code = ALT) 24 See_Comment [Auto mated message] The system which ge nerated this result transmit francine reference range : <=65. The reference range was not used to interpr et this result as angel l/abnormal. [place] [id number] 19:01:00 Test Item Value Reference Range Interpretation Comments Potassium Lvl (test code = Potassium 4.3 3.5-5.1 Lvl) [facility] [id number] 19:01:00 Test Item Value Reference Range Interpretation Comments Creatinine Lvl (test code = Creatinine 0.75 0.50-1.40 Lvl) [facility] AND [id number] 15:41:00 Test Item Value Reference Range Interpretation Comments UA Sq Epi (test code = UA Sq Epi) Few /LPF [facility] AND [id number] 15:41:00 Test Item Value Reference Range Interpretation Comments UA WBC (test code = UA WBC) 3-5 /HPF [facility] AND [id number] 15:41:00 Test Item Value Reference Range Interpretation Comments UA Bacteria (test code = UA Few /HPF Bacteria) [facility] AND [id number] 15:41:00 Test Item Value Reference Range Interpretation Comments UA RBC (test code = 0-2 /HPF See_Comment [Automa francine message] The UA RBC) system which ge nerated this result tra nsmitted reference range : <=2. The reference range was not used to interpr et this result as angel l/abnormal. [facility] AND [id number] 15:41:00 Test Item Value Reference Range Interpretation Comments UA Mucus (test code = None Seen (08/13/14 UA Mucus) 10:41 AM) [facility] AND [id number] 15:41:00 Test Item Value Reference Range Interpretation Comments UA Protein (test code = Trace *ABN*(08/13/14 UA Protein) 10:41 AM) [facility] AND [id number] 15:41:00 Test Item Value Reference Range Interpretation Comments UA Glucose (test code Negative (08/13/14 10:41 = UA Glucose) AM) [facility] AND [id number] 15:41:00 Test Item Value Reference Range Interpretation Comments UA Ketones (test code Negative *NA*(08/13/14 = UA Ketones) 10:41 AM) [facility] AND [id number] 15:41:00 Test Item Value Reference Range Interpretation Comments UA Bili (test code = Negative *NA*(08/13/14 UA Bili) 10:41 AM) [facility] AND [id number] 15:41:00 Test Item Value Reference Range Interpretation Comments UA Urobilinogen (test code = UA 0.2 0.1-1.0 Urobilinogen) [facility] AND [id number] 15:41:00 Test Item Value Reference Range Interpretation Comments UA Nitrite (test code Negative (08/13/14 10:41 = UA Nitrite) AM) [facility] AND [id number] 15:41:00 Test Item Value Reference Range Interpretation Comments UA Leuk Est (test code Small *ABN*(08/13/14 = UA Leuk Est) 10:41 AM) [facility] AND [id number] 15:41:00 Test Item Value Reference Range Interpretation Comments UA Blood (test code = Negative (08/13/14 10:41 UA Blood) AM) [facility] AND [id number] 15:41:00 Test Item Value Reference Range Interpretation Comments UA Spec Grav (test >=1.030 *ABN*(08/13/14 code = UA Spec Grav) 10:41 AM) [facility] AND [id number] 15:41:00 Test Item Value Reference Range Interpretation Comments UA pH (test code = UA pH) 6.0 1 5.0-8.0 [facility] AND [id number] 15:41:00 Test Item Value Reference Range Interpretation Comments UA Color (test code = Yellow *NA*(08/13/14 UA Color) 10:41 AM) [facility] AND [id number] 15:41:00 Test Item Value Reference Range Interpretation Comments UA Turbidity (test code = Clear (08/13/14 10:41 UA Turbidity) AM) [facility]2015-04-15 12:37:00 Test Item Value Reference Range Interpretation Comments eGFR (test code = eGFR) 70 [facility]2015-04-15 12:37:00 Test Item Value Reference Range Interpretation Comments Sodium Lvl (test code = Sodium Lvl) 140 135-145 [facility]2015-04-15 12:37:00 Test Item Value Reference Range Interpretation Comments Creatinine Lvl (test code = Creatinine 1.0 0.5-1.4 Lvl) [facility]2015-04-15 12:37:00 Test Item Value Reference Range Interpretation Comments BUN (test code = BUN) 29 7-22 [facility]2015-04-15 12:37:00 Test Item Value Reference Range Interpretation Comments Potassium Lvl (test code = Potassium 2.7 3.5-5.1 Lvl) [facility]2015-04-15 12:37:00 Test Item Value Reference Range Interpretation Comments Glucose Lvl (test code = Glucose Lvl) 64 70-99 [facility]2015-04-15 12:37:00 Test Item Value Reference Range Interpretation Comments Bili Total (test code = Bili Total) 0.7 0.2-1.3 [place] [id number] 12:37:00 Test Item Value Reference Range Interpretation Comments Alk Phos (test code = Alk Phos) 82 39-136 [facility]2015-04-15 12:37:00 Test Item Value Reference Range Interpretation Comments AST (test code = AST) 24 See_Comment [Auto mated message] The system which ge nerated this result transmit francine reference range : <=37. The reference range was not used to interpr et this result as angel l/abnormal. [facility]2015-04-15 12:37:00 Test Item Value Reference Range Interpretation Comments Albumin Lvl (test code = Albumin Lvl) 4.2 3.5-5.0 [facility]2015-04-15 12:37:00 Test Item Value Reference Range Interpretation Comments B/C Ratio (test code = B/C Ratio) 29 6-25 [facility]2015-04-15 12:37:00 Test Item Value Reference Range Interpretation Comments ALT (test code = ALT) 26 See_Comment [Auto mated message] The system which ge nerated this result transmit francine reference range : <=65. The reference range was not used to interpr et this result as angel l/abnormal. [place] [id number] 12:37:00 Test Item Value Reference Range Interpretation Comments Calcium Lvl (test code = Calcium Lvl) 9.0 8.5-10.5 [facility]2015-04-15 12:37:00 Test Item Value Reference Range Interpretation Comments AGAP (test code = AGAP) 8.7 10.0-20.0 [facility]2015-04-15 12:37:00 Test Item Value Reference Range Interpretation Comments CO2 (test code = CO2) 29 24-32 [facility]2015-04-15 12:37:00 Test Item Value Reference Range Interpretation Comments Chloride Lvl (test code = Chloride Lvl) 105 95-109 [facility]2015-04-15 12:37:00 Test Item Value Reference Range Interpretation Comments A/G Ratio (test code = A/G Ratio) 1.2 0.7-1.6 [facility]2015-04-15 12:37:00 Test Item Value Reference Range Interpretation Comments Globulin (test code = Globulin) 3.5 2.0-4.0 [facility]2015-04-15 12:37:00 Test Item Value Reference Range Interpretation Comments Total Protein (test code = Total 7.7 6.4-8.4 Protein) [facility] [id number] 12:37:00 Test Item Value Reference Range Interpretation Comments RDW (test code = RDW) 14.1 11.5-14.5 [facility] [id number] 12:37:00 Test Item Value Reference Range Interpretation Comments MCH (test code = MCH) 30.5 pg 27.0-31.0 [facility] CenterJpcyrcxNDZHCMCHPJ6241-98-29 12:37:00 Test Item Value Reference Range Interpretation Comments MCHC (test code = MCHC) 33.3 32.0-36.0 [facility] CenterEonklihSHNSYSLXPX6365-21-89 12:37:00 Test Item Value Reference Range Interpretation Comments MPV (test code = MPV) 6.7 7.4-10.4 [facility] CenterLwjavpcIQITIXVHBI5295-47-27 12:37:00 Test Item Value Reference Range Interpretation Comments Platelet (test code = Platelet) 256 133-450 [facility] CenterLnsgjgvWIWOPZWPUP3646-72-97 12:37:00 Test Item Value Reference Range Interpretation Comments MCV (test code = MCV) 91.6 80.0-98.0 [facility] CenterRjfvukuYPXNOHYCAG8240-93-44 12:37:00 Test Item Value Reference Range Interpretation Comments Hct (test code = Hct) 40.4 36.0-48.0 [facility] CenterPcxcsnwDZIXTCCBFV7446-29-87 12:37:00 Test Item Value Reference Range Interpretation Comments Hgb (test code = Hgb) 13.4 12.0-16.0 [facility] CenterYrzwsiqPPGMROBYGB6536-92-52 12:37:00 Test Item Value Reference Range Interpretation Comments WBC (test code = WBC) 8.0 3.7-10.4 [facility] CenterKmabvtlFQZSTKESJZ2300-27-60 12:37:00 Test Item Value Reference Range Interpretation Comments RBC (test code = RBC) 4.41 4.20-5.40 [facility] CenterKbcbbwwQOCBGRNDOM8294-30-23 12:37:00 Test Item Value Reference Range Interpretation Comments Basophils # (test code 0.0 See_Comment [Aut omated message] The = Basophils #) system which generated this result tra nsmitted reference range : <=0.2. The reference r markus was not used to int erpret this result as normal/abnormal . [facility] [facility]GIDBFGDG0655-74-28 12:37:00 Test Item Value Reference Range Interpretation Comments Lymphocytes # (test code = Lymphocytes 2.4 1.0-5.5 #) [facility]YdakbqxNPBXCJGEOC3345-47-15 12:37:00 Test Item Value Reference Range Interpretation Comments Segs-Bands # (test code = Segs-Bands #) 4.9 1.5-8.1 [facility] CenterCfqvdrzLMSVIZSMNR9733-62-86 12:37:00 Test Item Value Reference Range Interpretation Comments Eosinophils # (test code 0.1 See_Comment [A utomated message] The = Eosinophils #) system whic h generated this result tra nsmitted reference range : <=0.5. The reference r markus was not used to int erpret this result as normal/abnormal . [facility] CenterEqfushtYAFMICYGTB4348-70-34 12:37:00 Test Item Value Reference Range Interpretation Comments Monocytes # (test code 0.5 See_Comment [Aut omated message] The = Monocytes #) system which generated this result tra nsmitted reference range : <=0.8. The reference r markus was not used to int erpret this result as normal/abnormal . [facility] CenterFdgumdnQVJWYEUQSU5833-67-97 12:37:00 Test Item Value Reference Range Interpretation Comments Eosinophils (test code = 1.6 See_Comment [A utomated message] The Eosinophils) system which ge nerated this result tra nsmitted reference range : <=4.0. The reference r markus was not used to int erpret this result as normal/abnormal . [facility] CenterVgaboabYMKXMDPTDY4810-65-88 12:37:00 Test Item Value Reference Range Interpretation Comments Monocytes (test code = Monocytes) 6.5 2.0-12.0 [facility] CenterWmdfbfvXHYOYYUSUS2600-82-28 12:37:00 Test Item Value Reference Range Interpretation Comments Lymphocytes (test code = Lymphocytes) 30.0 20.0-40.0 [facility] CenterObwzrnxXSFTGAADKG7648-84-39 12:37:00 Test Item Value Reference Range Interpretation Comments Segs (test code = Segs) 61.6 45.0-75.0 [facility] CenterEqfeaepDVBDBBWIAD8234-46-53 12:37:00 Test Item Value Reference Range Interpretation Comments Basophils (test code = 0.3 See_Comment [Aut omated message] The Basophils) system which ge nerated this result tra nsmitted reference range : <=1.0. The reference r markus was not used to int erpret this result as normal/abnormal . [facility]2014-11-09 13:50:00 Test Item Value Reference Range Interpretation Comments Magnesium Lvl (test code = Magnesium 1.8 1.8-2.4 Lvl) [facility]2014-11-09 12:55:00 Test Item Value Reference Range Interpretation Comments Lipase Lvl (test code = Lipase Lvl) 396 73-393 [facility]2014-11-09 12:55:00 Test Item Value Reference Range Interpretation Comments Amylase Lvl (test code = Amylase Lvl) 50 25-115 [facility]2014-11-09 12:55:00 Test Item Value Reference Range Interpretation Comments A/G Ratio (test code = A/G Ratio) 1.2 0.7-1.6 [facility]2014-11-09 12:55:00 Test Item Value Reference Range Interpretation Comments Globulin (test code = Globulin) 3.3 2.0-4.0 [facility]2014-11-09 12:55:00 Test Item Value Reference Range Interpretation Comments AST (test code = AST) 8 See_Comment [Auto mated message] The system which ge nerated this result transmit francine reference range : <=37. The reference range was not used to interpr et this result as angel l/abnormal. [facility]2014-11-09 12:55:00 Test Item Value Reference Range Interpretation Comments Alk Phos (test code = Alk Phos) 61 39-136 [facility]2014-11-09 12:55:00 Test Item Value Reference Range Interpretation Comments ALT (test code = ALT) 16 See_Comment [Auto mated message] The system which ge nerated this result transmit francine reference range : <=65. The reference range was not used to interpr et this result as angel l/abnormal. [facility]2014-11-09 12:55:00 Test Item Value Reference Range Interpretation Comments Calcium Lvl (test code = Calcium Lvl) 9.1 8.5-10.5 [facility]2014-11-09 12:55:00 Test Item Value Reference Range Interpretation Comments B/C Ratio (test code = B/C Ratio) 12 6-25 [facility]2014-11-09 12:55:00 Test Item Value Reference Range Interpretation Comments Total Protein (test code = Total 7.2 6.4-8.4 Protein) [facility]2014-11-09 12:55:00 Test Item Value Reference Range Interpretation Comments AGAP (test code = AGAP) 9.3 10.0-20.0 [facility]2014-11-09 12:55:00 Test Item Value Reference Range Interpretation Comments Albumin Lvl (test code = Albumin Lvl) 3.9 3.5-5.0 [facility]2014-11-09 12:55:00 Test Item Value Reference Range Interpretation Comments Bili Total (test code = Bili Total) 0.9 0.2-1.3 [facility]2014-11-09 12:55:00 Test Item Value Reference Range Interpretation Comments eGFR (test code = eGFR) 79 [facility]2014-11-09 12:55:00 Test Item Value Reference Range Interpretation Comments Glucose Lvl (test code = Glucose Lvl) 106 70-99 [facility]2014-11-09 12:55:00 Test Item Value Reference Range Interpretation Comments BUN (test code = BUN) 11 7-22 [facility]2014-11-09 12:55:00 Test Item Value Reference Range Interpretation Comments Creatinine Lvl (test code = Creatinine 0.9 0.5-1.4 Lvl) [facility]2014-11-09 12:55:00 Test Item Value Reference Range Interpretation Comments Potassium Lvl (test code = Potassium 2.3 3.5-5.1 Lvl) [facility]2014-11-09 12:55:00 Test Item Value Reference Range Interpretation Comments Chloride Lvl (test code = Chloride Lvl) 104 95-109 [facility]2014-11-09 12:55:00 Test Item Value Reference Range Interpretation Comments CO2 (test code = CO2) 27 24-32 [facility]2014-11-09 12:55:00 Test Item Value Reference Range Interpretation Comments Sodium Lvl (test code = Sodium Lvl) 138 135-145 [facility] CenterKjwmxqaUEGQRLOZMB6512-42-44 12:55:00 Test Item Value Reference Range Interpretation Comments Monocytes # (test code 0.5 See_Comment [Aut omated message] The = Monocytes #) system which generated this result tra nsmitted reference range : <=0.8. The reference r markus was not used to int erpret this result as normal/abnormal . [facility] CenterDrugenmCSVHFEJXBO9757-72-54 12:55:00 Test Item Value Reference Range Interpretation Comments Basophils (test code = 0.3 See_Comment [Aut omated message] The Basophils) system which ge nerated this result tra nsmitted reference range : <=1.0. The reference r markus was not used to int erpret this result as normal/abnormal . [facility] CenterIdyitinINAPWMIRLB9157-45-49 12:55:00 Test Item Value Reference Range Interpretation Comments Lymphocytes # (test code = Lymphocytes 2.3 1.0-5.5 #) [facility] CenterIarbtxiTDXTWBOZQV8371-97-36 12:55:00 Test Item Value Reference Range Interpretation Comments Segs-Bands # (test code = Segs-Bands #) 7.0 1.5-8.1 [facility] CenterOjjajnoYIAGLHFHME7915-71-40 12:55:00 Test Item Value Reference Range Interpretation Comments Eosinophils (test code = 0.3 See_Comment [A utomated message] The Eosinophils) system which ge nerated this result tra nsmitted reference range : <=4.0. The reference r markus was not used to int erpret this result as normal/abnormal . [facility] CenterYdjepnnLYCDNPVWHC3250-78-18 12:55:00 Test Item Value Reference Range Interpretation Comments Eosinophils # (test code 0.0 See_Comment [A utomated message] The = Eosinophils #) system whic h generated this result tra nsmitted reference range : <=0.5. The reference r markus was not used to int erpret this result as normal/abnormal . [facility] CenterWqbnxemWQJDYRWTAK0779-88-11 12:55:00 Test Item Value Reference Range Interpretation Comments Basophils # (test code 0.0 See_Comment [Aut omated message] The = Basophils #) system which generated this result tra nsmitted reference range : <=0.2. The reference r markus was not used to int erpret this result as normal/abnormal . [facility] CenterQknhdygTNCYNSTHMC9518-60-31 12:55:00 Test Item Value Reference Range Interpretation Comments Monocytes (test code = Monocytes) 4.6 2.0-12.0 [facility] CenterGngimnzYOEKMAFGFL3510-21-11 12:55:00 Test Item Value Reference Range Interpretation Comments Lymphocytes (test code = Lymphocytes) 23.4 20.0-40.0 [facility] CenterHropznhFFOQDGDECA7896-77-29 12:55:00 Test Item Value Reference Range Interpretation Comments Segs (test code = Segs) 71.4 45.0-75.0 [facility] CenterBgyphdcMSNIGAXINP3919-13-86 12:55:00 Test Item Value Reference Range Interpretation Comments INR (test code = INR) 1.08 0.85-1.17 [facility] CenterJvsdrjhDAFEGHQPJX6659-81-75 12:55:00 Test Item Value Reference Range Interpretation Comments PTT (test code = PTT) 28.7 s 22.9-35.8 [facility] CenterPnchrvjPKQNIEJRTY5055-91-97 12:55:00 Test Item Value Reference Range Interpretation Comments PT (test code = PT) 14.0 s 12.0-14.7 [place] [address]-11-09 12:55:00 Test Item Value Reference Range Interpretation Comments Hct (test code = Hct) 45.4 36.0-48.0 [facility] CenterTloksqvSHDJOZIKHI4621-77-68 12:55:00 Test Item Value Reference Range Interpretation Comments MCV (test code = MCV) 94.6 80.0-98.0 [facility] CenterRhqbytbMAUDBOXMUG5761-51-07 12:55:00 Test Item Value Reference Range Interpretation Comments RBC (test code = RBC) 4.80 4.20-5.40 [facility] CenterPhgeaefPEKZKRJOGZ5288-88-99 12:55:00 Test Item Value Reference Range Interpretation Comments Hgb (test code = Hgb) 15.2 12.0-16.0 [facility] CenterQmitxjzXGURJTYGML5087-09-51 12:55:00 Test Item Value Reference Range Interpretation Comments WBC (test code = WBC) 9.9 3.7-10.4 [facility] CenterFpnledsYBSAPQNVRA7625-61-59 12:55:00 Test Item Value Reference Range Interpretation Comments Platelet (test code = Platelet) 256 133-450 [facility] CenterOrchprzIXRFCNPHYW0352-86-14 12:55:00 Test Item Value Reference Range Interpretation Comments MPV (test code = MPV) 7.5 7.4-10.4 [facility] CenterJgumnetEGPEZDULUH3046-63-47 12:55:00 Test Item Value Reference Range Interpretation Comments RDW (test code = RDW) 13.7 11.5-14.5 [facility] CenterDawnfspDEKBRBUBLA0658-36-25 12:55:00 Test Item Value Reference Range Interpretation Comments MCH (test code = MCH) 31.7 pg 27.0-31.0 [facility] CenterCapvwibUDKCFNOXHQ4898-02-97 12:55:00 Test Item Value Reference Range Interpretation Comments MCHC (test code = MCHC) 33.5 32.0-36.0 [facility]rq[facility]ekRKKHIMXJPK4474-05-50 12:55:00 Test Item Value Reference Range Interpretation Comments CDC HIV 4th GEN (test Negative (03/09/14 6:55 code = CDC HIV 4th AM) GEN) [facility] AND [id number] 12:55:00 Test Item Value Reference Range Interpretation Comments UA Blood (test code = Negative (03/09/14 6:55 UA Blood) AM) [facility] AND [id number] 12:55:00 Test Item Value Reference Range Interpretation Comments UA Glucose (test code Negative (03/09/14 6:55 = UA Glucose) AM) [facility] AND [id number] 12:55:00 Test Item Value Reference Range Interpretation Comments UA Ketones (test code Negative *NA*(03/09/14 = UA Ketones) 6:55 AM) [facility] AND [id number] 12:55:00 Test Item Value Reference Range Interpretation Comments UA Bili (test code = Negative *NA*(03/09/14 UA Bili) 6:55 AM) [facility] AND [id number] 12:55:00 Test Item Value Reference Range Interpretation Comments UA Leuk Est (test code Large *ABN*(03/09/14 = UA Leuk Est) 6:55 AM) [facility] AND [id number] 12:55:00 Test Item Value Reference Range Interpretation Comments UA Urobilinogen (test code = UA 1.0 0.1-1.0 Urobilinogen) [facility] AND [id number] 12:55:00 Test Item Value Reference Range Interpretation Comments UA Nitrite (test code Negative (03/09/14 6:55 = UA Nitrite) AM) [facility] AND [id number] 12:55:00 Test Item Value Reference Range Interpretation Comments UA Spec Grav (test code = UA Spec 1.015 1 Grav) [facility] AND [id number] 12:55:00 Test Item Value Reference Range Interpretation Comments UA pH (test code = UA pH) 7.5 1 5.0-8.0 [facility] AND [id number] 12:55:00 Test Item Value Reference Range Interpretation Comments UA Protein (test code Negative (03/09/14 6:55 = UA Protein) AM) [facility] AND [id number] 12:55:00 Test Item Value Reference Range Interpretation Comments UA Turbidity (test code = Clear (03/09/14 6:55 UA Turbidity) AM) [facility] AND [id number] 12:55:00 Test Item Value Reference Range Interpretation Comments UA Color (test code = Yellow *NA*(03/09/14 UA Color) 6:55 AM) [facility] AND [id number] 12:55:00 Test Item Value Reference Range Interpretation Comments UA WBC (test code = UA WBC) 21-50 /HPF [facility] AND [id number] 12:55:00 Test Item Value Reference Range Interpretation Comments UA Sq Epi (test code = UA Sq Moderate /LPF Epi) [facility] AND [id number] 12:55:00 Test Item Value Reference Range Interpretation Comments UA Mucus (test code = UA Mucus) Few /LPF [facility] AND [id number] 12:55:00 Test Item Value Reference Range Interpretation Comments UA Amorph Priti (test code = UA Few /HPF Amorph Priti) [facility] AND [id number] 12:55:00 Test Item Value Reference Range Interpretation Comments UA RBC (test code = 3-5 /HPF See_Comment [Automa francine message] The UA RBC) system which ge nerated this result tra nsmitted reference range : <=2. The reference range was not used to interpr et this result as angel l/abnormal. [facility] AND [id number] 12:55:00 Test Item Value Reference Range Interpretation Comments UA Bacteria (test code = UA Moderate /HPF Bacteria) [facility]YaxgfbrKXOOZWNYUSOL0342-84-04 16:00:00 Test Item Value Reference Range Interpretation Comments Potassium Lvl (test code = Potassium 2.9 3.5-5.1 Lvl) [facility] HospitalTxmmuxxAFASGJRLJMHB8723-93-59 16:00:00 Test Item Value Reference Range Interpretation Comments Creatinine Lvl (test code = Creatinine 0.9 0.5-1.4 Lvl) [facility] HospitalBiuhnbfIYREGSHYGFPE6394-36-94 16:00:00 Test Item Value Reference Range Interpretation Comments Sodium Lvl (test code = Sodium Lvl) 143 135-145 [facility] HospitalXeqpwscRZMICESLCUDO2590-64-43 16:00:00 Test Item Value Reference Range Interpretation Comments BUN (test code = BUN) 11 7-22 [facility] HospitalKkqgsthPQSDSAFASPXT0832-64-13 16:00:00 Test Item Value Reference Range Interpretation Comments Glucose Lvl (test code = Glucose Lvl) 89 70-99 [facility] HospitalGwcqsqpQTMBZDLXILAW4501-12-30 16:00:00 Test Item Value Reference Range Interpretation Comments AST (test code = AST) 13 See_Comment [Auto mated message] The system which ge nerated this result transmit francine reference range : <=37. The reference range was not used to interpr et this result as angel l/abnormal. [facility] HospitalLnqbdrgHKFOSISMPBSP8065-24-05 16:00:00 Test Item Value Reference Range Interpretation Comments Alk Phos (test code = Alk Phos) 76 39-136 [facility] HospitalObqjqieUDRFARNACAKU3686-52-19 16:00:00 Test Item Value Reference Range Interpretation Comments Bili Total (test code = Bili Total) 0.4 0.2-1.3 [facility] HospitalPkvffhfZIEEKCGXPKCO8501-50-94 16:00:00 Test Item Value Reference Range Interpretation Comments Globulin (test code = Globulin) 2.9 2.0-4.0 [facility] HospitalMmyyktjVNCZPKOQIAQO1126-94-86 16:00:00 Test Item Value Reference Range Interpretation Comments A/G Ratio (test code = A/G Ratio) 1.2 0.7-1.6 [facility] HospitalRbdgzarTKMONRQUWHFP0204-14-80 16:00:00 Test Item Value Reference Range Interpretation Comments ALT (test code = ALT) 16 See_Comment [Auto mated message] The system which ge nerated this result transmit francine reference range : <=65. The reference range was not used to interpr et this result as angel l/abnormal. [facility] HospitalHuekdjlBJDYIDCBCNKI4669-84-32 16:00:00 Test Item Value Reference Range Interpretation Comments B/C Ratio (test code = B/C Ratio) 12 6-25 [facility] HospitalKkrxulxAUWDVKIZFFCD3620-15-81 16:00:00 Test Item Value Reference Range Interpretation Comments Albumin Lvl (test code = Albumin Lvl) 3.6 3.5-5.0 [facility] HospitalYlzzkpvJCVXXUOZKCWC9905-35-23 16:00:00 Test Item Value Reference Range Interpretation Comments Total Protein (test code = Total 6.5 6.4-8.4 Protein) [facility] HospitalRxplkocMMPSYFWUKERL2186-50-19 16:00:00 Test Item Value Reference Range Interpretation Comments CO2 (test code = CO2) 20 24-32 [facility] HospitalOnrpafoVDNREPNZHXTO8390-29-50 16:00:00 Test Item Value Reference Range Interpretation Comments Chloride Lvl (test code = Chloride Lvl) 109 95-109 [facility] HospitalYrkfmugPZDHYAVZLHAC4565-91-88 16:00:00 Test Item Value Reference Range Interpretation Comments AGAP (test code = AGAP) 16.9 10.0-20.0 [facility] HospitalPebryhhMQBLOIGGRDBI2066-71-33 16:00:00 Test Item Value Reference Range Interpretation Comments Calcium Lvl (test code = Calcium Lvl) 8.6 8.5-10.5 [facility] HospitalLegyqcqFFSTQVWTJLPH9825-35-18 16:00:00 Test Item Value Reference Range Interpretation Comments eGFR (test code = eGFR) 79 [facility] CenterNynzcfaQKWVDERMBG1887-53-06 16:00:00 Test Item Value Reference Range Interpretation Comments RBC (test code = RBC) 4.29 4.20-5.40 [facility] CenterXcxezhlKFLAPQITZS4487-16-80 16:00:00 Test Item Value Reference Range Interpretation Comments MPV (test code = MPV) 6.7 7.4-10.4 [facility] CenterJnelzmwPDQSZDJEWX2602-40-24 16:00:00 Test Item Value Reference Range Interpretation Comments Platelet (test code = Platelet) 337 133-450 [facility] CenterExltmbtKIFPSTJNDM9509-95-19 16:00:00 Test Item Value Reference Range Interpretation Comments RDW (test code = RDW) 14.6 11.5-14.5 [facility] CenterNpdzajrXHGCMUHYYH2805-14-91 16:00:00 Test Item Value Reference Range Interpretation Comments MCHC (test code = MCHC) 33.9 32.0-36.0 [facility] CenterAbiqeoxLXHBANVZTS0774-98-88 16:00:00 Test Item Value Reference Range Interpretation Comments MCH (test code = MCH) 31.1 pg 27.0-31.0 [facility] CenterNzikldpTRSZCCDICW7481-86-22 16:00:00 Test Item Value Reference Range Interpretation Comments MCV (test code = MCV) 91.6 80.0-98.0 [facility] CenterFrdwfijBSMVPPXRZA9913-61-52 16:00:00 Test Item Value Reference Range Interpretation Comments Hct (test code = Hct) 39.3 36.0-48.0 [facility] CenterSvqltdzEOCUCVCFTB6196-73-74 16:00:00 Test Item Value Reference Range Interpretation Comments Hgb (test code = Hgb) 13.4 12.0-16.0 [facility] CenterKetqcoqGDZVDRRGZD5189-60-20 16:00:00 Test Item Value Reference Range Interpretation Comments WBC (test code = WBC) 13.4 3.7-10.4 [facility] CenterYamseskUKEQBVIFQR5288-94-36 16:00:00 Test Item Value Reference Range Interpretation Comments Basophils # (test code 0.0 See_Comment [Aut omated message] The = Basophils #) system which generated this result tra nsmitted reference range : <=0.2. The reference r markus was not used to int erpret this result as normal/abnormal . [facility] CenterZyniwvaYUKOXMEFQA7376-35-11 16:00:00 Test Item Value Reference Range Interpretation Comments Eosinophils # (test code 0.0 See_Comment [A utomated message] The = Eosinophils #) system whic h generated this result tra nsmitted reference range : <=0.5. The reference r markus was not used to int erpret this result as normal/abnormal . [facility] CenterQafbbbaLGUSUACKXG4126-45-67 16:00:00 Test Item Value Reference Range Interpretation Comments Monocytes # (test code 0.6 See_Comment [Aut omated message] The = Monocytes #) system which generated this result tra nsmitted reference range : <=0.8. The reference r markus was not used to int erpret this result as normal/abnormal . [facility] CenterXjueycySRNJHRBSHQ1561-84-52 16:00:00 Test Item Value Reference Range Interpretation Comments Segs-Bands # (test code = Segs-Bands #) 10.1 1.5-8.1 [facility] CenterDlwmrqeZDSZBBKWPX8109-36-19 16:00:00 Test Item Value Reference Range Interpretation Comments Lymphocytes # (test code = Lymphocytes 2.7 1.0-5.5 #) [facility] CenterWiyihhlHNQGWOYHUD3749-84-39 16:00:00 Test Item Value Reference Range Interpretation Comments Monocytes (test code = Monocytes) 4.4 2.0-12.0 [facility] CenterYwulfmbAWITXKPXYV0660-18-61 16:00:00 Test Item Value Reference Range Interpretation Comments Lymphocytes (test code = Lymphocytes) 20.1 20.0-40.0 [facility] CenterJmtpnhePLVVMXGDHB6378-09-31 16:00:00 Test Item Value Reference Range Interpretation Comments Segs (test code = Segs) 74.9 45.0-75.0 [facility] CenterCsacjdjRKRYDPLLFO6138-79-01 16:00:00 Test Item Value Reference Range Interpretation Comments Eosinophils (test code = 0.3 See_Comment [A utomated message] The Eosinophils) system which ge nerated this result tra nsmitted reference range : <=4.0. The reference r markus was not used to int erpret this result as normal/abnormal . [facility]VuoxzoiPHSPNMVMZK7836-93-09 16:00:00 Test Item Value Reference Range Interpretation Comments Basophils (test code = 0.3 See_Comment [Aut omated message] The Basophils) system which ge nerated this result tra nsmitted reference range : <=1.0. The reference r markus was not used to int erpret this result as normal/abnormal . [facility]oundRdvqsoaZVCDOFAUVS2298-19-34 16:00:00 Test Item Value Reference Range Interpretation Comments Salicylate Lvl (test 6.2 See_Comment [Autom ated message] The code = Salicylate Lvl) syste m which generated this result tra nsmitted reference range : <=30.0. The reference r markus was not used to int erpret this result as normal/abnormal . [facility] CenterCnygphaCMADOUVNJF3329-95-28 16:00:00 Test Item Value Reference Range Interpretation Comments Acetaminoph Lvl (test code = 9 10-20 Acetaminoph Lvl) [facility] CenterRoorepeTXKBSFNMNA5621-02-90 16:00:00 Test Item Value Reference Range Interpretation Comments Ethanol Lvl (test code = Ethanol Lvl) no gt [facility] CenterWkrrkigPJWRVKKVBD8873-56-37 16:00:00 Test Item Value Reference Range Interpretation Comments Etoh (%) (test code = Etoh (%)) no gt [facility] CenterannDR[facility] IMDZGY9492-16-64 15:30:41 Test Item Value Reference Range Interpretation Comments U Cocaine Scr (test Positive *ABN*(01/14/14 code = U Cocaine Scr) 10:30 AM) [facility]DR[facility] [id number] 15:30:41 Test Item Value Reference Range Interpretation Comments U Benzodia Scr (test Negative *NA*(01/14/14 code = U Benzodia Scr) 10:30 AM) [facility] IPTIJK5591-41-92 15:30:41 Test Item Value Reference Range Interpretation Comments U Lizzy Scr (test code Negative *NA*(01/14/14 = U Lizzy Scr) 10:30 AM) [facility] PQXNYC9448-58-29 15:30:41 Test Item Value Reference Range Interpretation Comments U Amph Scr (test code Positive *ABN*(01/14/14 = U Amph Scr) 10:30 AM) [facility] DFKLUR9723-62-54 15:30:41 Test Item Value Reference Range Interpretation Comments UDS Note (test code = See Note 4(01/14/14 UDS Note) 10:30 AM) [facility] JLJQKL5238-80-01 15:30:41 Test Item Value Reference Range Interpretation Comments U Phencyc Scr (test Negative *NA*(01/14/14 code = U Phencyc Scr) 10:30 AM) [facility] NYBQJD8464-85-90 15:30:41 Test Item Value Reference Range Interpretation Comments U Cannab Scr (test Negative *NA*(01/14/14 code = U Cannab Scr) 10:30 AM) [facility] [id number] 15:30:41 Test Item Value Reference Range Interpretation Comments U Opiate Scr (test Positive *ABN*(01/14/14 code = U Opiate Scr) 10:30 AM) [facility] [id number] 15:30:00 Test Item Value Reference Range Interpretation Comments UA Urobilinogen (test code = UA 0.2 0.1-1.0 Urobilinogen) [id number] Test Item Value Reference Range Interpretation Comments UA Nitrite (test code Negative (01/14/14 10:30 = UA Nitrite) AM) [facility] [id number] 15:30:00 Test Item Value Reference Range Interpretation Comments UA Leuk Est (test Moderate *ABN*(01/14/14 code = UA Leuk Est) 10:30 AM) [facility] [id number] 15:30:00 Test Item Value Reference Range Interpretation Comments UA Sq Epi (test code = UA Sq Epi) Rare /LPF [facility] [id number] 15:30:00 Test Item Value Reference Range Interpretation Comments UA RBC (test code = 0-2 /HPF See_Comment [Automa francine message] The UA RBC) system which ge nerated this result tra nsmitted reference range : <=2. The reference range was not used to interpr et this result as angel l/abnormal. [facility] [id number] 15:30:00 Test Item Value Reference Range Interpretation Comments UA WBC (test code = UA Packed *ABN*(01/14/14 WBC) 10:30 AM) [facility] [id number] 15:30:00 Test Item Value Reference Range Interpretation Comments UA Bacteria (test code = UA Occasional /HPF Bacteria) [facility] [id number] 15:30:00 Test Item Value Reference Range Interpretation Comments UA Bili (test code = Moderate *ABN*(01/14/14 UA Bili) 10:30 AM) [facility] [id number] 15:30:00 Test Item Value Reference Range Interpretation Comments UA Ketones (test code = UA >=80 mg/dL Ketones) [facility] [id number] 15:30:00 Test Item Value Reference Range Interpretation Comments UA Blood (test code = Trace *ABN*(01/14/14 UA Blood) 10:30 AM) [facility] [id number] 15:30:00 Test Item Value Reference Range Interpretation Comments UA Color (test code = Yellow *NA*(01/14/14 UA Color) 10:30 AM) [facility] [id number] 15:30:00 Test Item Value Reference Range Interpretation Comments UA pH (test code = UA pH) 6.0 1 5.0-8.0 [facility] [id number] 15:30:00 Test Item Value Reference Range Interpretation Comments UA Spec Grav (test >=1.030 *ABN*(01/14/14 code = UA Spec Grav) 10:30 AM) [facility] [id number] 15:30:00 Test Item Value Reference Range Interpretation Comments UA Turbidity (test code Slight Cloudy = UA Turbidity) (01/14/14 10:30 AM) [facility] [id number] 15:30:00 Test Item Value Reference Range Interpretation Comments UA Glucose (test code Negative (01/14/14 10:30 = UA Glucose) AM) [facility] [id number] 15:30:00 Test Item Value Reference Range Interpretation Comments UA Protein (test code = Trace *ABN*(01/14/14 UA Protein) 10:30 AM) [facility] [id number] 15:30:00 Test Item Value Reference Range Interpretation Comments U Preg (test code = U Negative (01/14/14 10:30 Preg) AM) [facility]2014-09-16 04:50:00 Test Item Value Reference Range Interpretation Comments Lipase Lvl (test code = Lipase Lvl) 101 73-393 [facility]2014-09-16 04:50:00 Test Item Value Reference Range Interpretation Comments Amylase Lvl (test code = Amylase Lvl) 23 25-115 [facility]2014-09-16 04:50:00 Test Item Value Reference Range Interpretation Comments Alk Phos (test code = Alk Phos) 69 39-136 [facility]2014-09-16 04:50:00 Test Item Value Reference Range Interpretation Comments Bili Total (test code = Bili Total) 0.5 0.2-1.3 [facility]2014-09-16 04:50:00 Test Item Value Reference Range Interpretation Comments AST (test code = AST) 14 See_Comment [Auto mated message] The system which ge nerated this result transmit francine reference range : <=37. The reference range was not used to interpr et this result as angel l/abnormal. [facility]2014-09-16 04:50:00 Test Item Value Reference Range Interpretation Comments Potassium Lvl (test code = Potassium 2.9 3.5-5.1 Lvl) [facility]2014-09-16 04:50:00 Test Item Value Reference Range Interpretation Comments Chloride Lvl (test code = Chloride Lvl) 109 95-109 [facility]2014-09-16 04:50:00 Test Item Value Reference Range Interpretation Comments AGAP (test code = AGAP) 19.9 10.0-20.0 [facility]2014-09-16 04:50:00 Test Item Value Reference Range Interpretation Comments Calcium Lvl (test code = Calcium Lvl) 8.4 8.5-10.5 [facility]2014-09-16 04:50:00 Test Item Value Reference Range Interpretation Comments Total Protein (test code = Total 6.0 6.4-8.4 Protein) [facility]2014-09-16 04:50:00 Test Item Value Reference Range Interpretation Comments Albumin Lvl (test code = Albumin Lvl) 3.3 3.5-5.0 [facility]2014-09-16 04:50:00 Test Item Value Reference Range Interpretation Comments CO2 (test code = CO2) 18 24-32 [facility]2014-09-16 04:50:00 Test Item Value Reference Range Interpretation Comments B/C Ratio (test code = B/C Ratio) 21 6-25 [facility]2014-09-16 04:50:00 Test Item Value Reference Range Interpretation Comments Creatinine Lvl (test code = Creatinine 0.7 0.5-1.4 Lvl) [facility]2014-09-16 04:50:00 Test Item Value Reference Range Interpretation Comments Sodium Lvl (test code = Sodium Lvl) 144 135-145 [facility]2014-09-16 04:50:00 Test Item Value Reference Range Interpretation Comments BUN (test code = BUN) 15 7-22 [facility]2014-09-16 04:50:00 Test Item Value Reference Range Interpretation Comments Glucose Lvl (test code = Glucose Lvl) 95 70-99 [place] 529464-09-16 04:50:00 Test Item Value Reference Range Interpretation Comments ALT (test code = ALT) 14 See_Comment [Auto mated message] The system which ge nerated this result transmit francine reference range : <=65. The reference range was not used to interpr et this result as angel l/abnormal. [facility]2014-09-16 04:50:00 Test Item Value Reference Range Interpretation Comments eGFR (test code = eGFR) 107 [facility]2014-09-16 04:50:00 Test Item Value Reference Range Interpretation Comments A/G Ratio (test code = A/G Ratio) 1.2 0.7-1.6 [facility]2014-09-16 04:50:00 Test Item Value Reference Range Interpretation Comments Globulin (test code = Globulin) 2.7 2.0-4.0 [id number] 03:50:00 Test Item Value Reference Range Interpretation Comments Segs-Bands # (test code = Segs-Bands #) 7.8 1.5-8.1 [id number] 03:50:00 Test Item Value Reference Range Interpretation Comments Lymphocytes # (test code = Lymphocytes 2.4 1.0-5.5 #) [id number] 03:50:00 Test Item Value Reference Range Interpretation Comments Monocytes (test code = Monocytes) 4.6 2.0-12.0 [id number] 03:50:00 Test Item Value Reference Range Interpretation Comments Monocytes # (test code 0.5 See_Comment [Aut omated message] The = Monocytes #) system which generated this result tra nsmitted reference range : <=0.8. The reference r markus was not used to int erpret this result as normal/abnormal . [facility] C[id number] 03:50:00 Test Item Value Reference Range Interpretation Comments Lymphocytes (test code = Lymphocytes) 22.4 20.0-40.0 [facility] [id number] 03:50:00 Test Item Value Reference Range Interpretation Comments Basophils # (test code 0.0 See_Comment [Aut omated message] The = Basophils #) system which generated this result tra nsmitted reference range : <=0.2. The reference r markus was not used to int erpret this result as normal/abnormal . [facility] [id number] 03:50:00 Test Item Value Reference Range Interpretation Comments Eosinophils # (test code 0.1 See_Comment [A utomated message] The = Eosinophils #) system wh h generated this result tra nsmitted reference range : <=0.5. The reference r markus was not used to int erpret this result as normal/abnormal . [facility] [id number] 03:50:00 Test Item Value Reference Range Interpretation Comments Eosinophils (test code = 0.6 See_Comment [A utomated message] The Eosinophils) system which ge nerated this result tra nsmitted reference range : <=4.0. The reference r markus was not used to int erpret this result as normal/abnormal . [facility] [id number] 03:50:00 Test Item Value Reference Range Interpretation Comments Basophils (test code = 0.3 See_Comment [Aut omated message] The Basophils) system which ge nerated this result tra nsmitted reference range : <=1.0. The reference r markus was not used to int erpret this result as normal/abnormal . [facility] [id number] 03:50:00 Test Item Value Reference Range Interpretation Comments Segs (test code = Segs) 72.1 45.0-75.0 [id number] 03:50:00 Test Item Value Reference Range Interpretation Comments MPV (test code = MPV) 7.0 7.4-10.4 [facility] [id number] 03:50:00 Test Item Value Reference Range Interpretation Comments Platelet (test code = Platelet) 407 133-450 [facility] CenterSuwbcaqONZKHYDMUI4006-98-75 03:50:00 Test Item Value Reference Range Interpretation Comments RDW (test code = RDW) 14.8 11.5-14.5 [facility] CenterKquwsxiBNEIIDLHGE4007-66-79 03:50:00 Test Item Value Reference Range Interpretation Comments MCHC (test code = MCHC) 33.5 32.0-36.0 [facility] CenterVfrtobkLPIWWGJKTP6187-58-29 03:50:00 Test Item Value Reference Range Interpretation Comments MCH (test code = MCH) 30.7 pg 27.0-31.0 [facility] CenterGeeqybrWKRXRDHHHD4828-80-01 03:50:00 Test Item Value Reference Range Interpretation Comments Hct (test code = Hct) 41.5 36.0-48.0 [facility] CenterKfvicldJNDPFNZVGJ9873-51-71 03:50:00 Test Item Value Reference Range Interpretation Comments RBC (test code = RBC) 4.53 4.20-5.40 [facility] CenterOjuhvpbBDMRNURIYG1734-97-21 03:50:00 Test Item Value Reference Range Interpretation Comments Hgb (test code = Hgb) 13.9 12.0-16.0 [facility] CenterGpduejnVBQUFYKDDL3472-19-06 03:50:00 Test Item Value Reference Range Interpretation Comments WBC (test code = WBC) 10.8 3.7-10.4 [facility] CenterGoiwggqNSOJWFYWTU8508-99-45 03:50:00 Test Item Value Reference Range Interpretation Comments MCV (test code = MCV) 91.6 80.0-98.0 [facility]ntwhucix0056[facility] 15:05:54 Test Item Value Reference Range Interpretation Comments TSH (test code = TSH) 0.44 [facility]/Jjo8224-92-34 16:10:03 Test Item Value Reference Range Interpretation Comments PAP SMEAR (test code = PAP SMEAR) Normal [facility]oundTzlvqjaActdqubzi9031-53-02 16:10:03 Test Item Value Reference Range Interpretation Comments PAP SMEAR (test code = PAP SMEAR) Normal [facility]
== END 2021-11-14 14:15 | disposition home or self-care (01) | DRG 386 ==
LOC: ER 06:18 → ERHOLD 13:11 → 2ND 16:47 → OBSVTOIN 17:13
PROVIDERS: ADMIT Hospitalist; ATTEND Hospitalist
DX: K50.912 Crohn's disease, unspecified, with intestinal obstruction (principal); E27.40 Unspecified adrenocortical insufficiency; F31.9 Bipolar disorder, unspecified; G89.4 Chronic pain syndrome; E03.9 Hypothyroidism, unspecified; Z87.891 Personal history of nicotine dependence; Z20.822 Contact with and (suspected) exposure to COVID-19
CPT/HCPCS: 36415; 74018; 74022; 74177; 80053; 81003; 81025; 83690; 83735; 84100; 84484; 85025; 93005; 99285; G0378; J1170; J1650; J1720; J2405; J2930; J3360; J3490; J7030; J7120; Q9967; U0003

== ENCOUNTER 2022-01-04 02:00 | Inpatient (IN) | payer OTHER ==
--- OUTSIDE RECORDS SUMMARY | 2022-01-04 02:23 | XMS REPORT | Continuity of Care Document ---
:1970 Author Organization [facility] t Address [address] [place] [address] Care Team Providers Name Role Phone RETANAKASSIEFrancisca SCOTT Primary Care Physician Unavailable APRIL MOCK Attending Clinician Unavailable DR EDGARD CASH Attending Clinician Unavailable GRACIE GARNER Attending Clinician Unavailable Gracie Jackson Attending Clinician [phone] JANI ALEJANDRO Attending Clinician Unavailable Vivek Attending Clinician Unavailable MILADY Attending Clinician Unavailable ELLY DODSON Attending Clinician Unavailable Sung Bullock MD Attending Clinician Javon MOTLEY, Jani Attending Clinician JAVON JANI Attending Clinician Unavailable SUNG UBLLOCK Attending Clinician Unavailable Andre Diaz PA-C Attending Clinician [phone] ANDRE DIAZ Attending Clinician Unavailable APRIL MOCK Attending Clinician Unavailable Jazzy MOTLEY, Americo Donnelly Attending Clinician [phone] Leigha MOTLEY, Vijay Griffin Attending Clinician [phone] Maria M MOTLEY, Sheldon Attending Clinician SHELDON GIRON Attending Clinician Unavailable AMERICO PURCELL Attending Clinician Unavailable April Mock MD Attending Clinician Emanuel MOTLEY, Romi Calvin Attending Clinician AMBCHRIS_ADAM Attending Clinician Unavailable FALGUNI FIELDS Attending Clinician Unavailable Mauricio Lei MD Attending Clinician Terri Forbes MD Attending Clinician Noelle RADER, Anuja Miller Attending Clinician [phone] MD MAURICIO LEI Attending Clinician Unavailable ELLY DODSON Attending Clinician Unavailable Elly Dodson MD Attending Clinician [phone] 1.5, [facility] Jase Mr Attending Clinician Unavailable MICHAEL LOPEZ Attending Clinician Unavailable Michael Lopez Attending Clinician Donavan Peralta Attending Clinician Unavailable Muriel Jerry MA Attending Clinician Unavailable Moose RADER, Michael Attending Clinician Patsy Riggins MA Attending Clinician Unavailable Tamia Cornelius MA Attending Clinician Unavailable MICHAEL LOPEZ Attending Clinician Unavailable Elle Attending Clinician Unavailable Giacomo Attending Clinician Unavailable MARTINEZ SINGER Attending Clinician Unavailable Yessy Attending Clinician Unavailable Mohsen Sandoval MD Attending Clinician Shanelle Morley MD Attending Clinician SHANELLE MORLEY Attending Clinician Unavailable LEX SPANN Attending Clinician Unavailable Glenn Attending Clinician Unavailable Mulugeta MOTLEY, Luís Keating Attending Clinician Javon MOTLEY, Jani Attending Clinician Nish MOTLEY, April Attending Clinician Otto Daniels MD Attending Clinician SANTIAGO DICKINSON Attending Clinician Unavailable SHAGUFTA MANCINI-ALEJANDRO Attending Clinician Unavail able BLAKE ALLEN - Attending Clinician Unavailable RADHA DELVALLE Attending Clinician Unavailable APRIL MOCK Admitting Clinician Unavailable DR EDGARD CASH Admitting Clinician Unavailable Nieves_Gustavo Admitting Clinician Unavailable MILADY Admitting Clinician Unavailable JANI ALEJANDRO Admitting Clinician Unavailable VIJAY CISSE Admitting Clinician Unavailable LILY_ADAM Admitting Clinician Unavailable MAURICIO LEI Admitting Clinician Unavailable DIOR BECERRA Admitting Clinician Unavailable Elle Admitting Clinician Unavailable Giacomo Admitting Clinician Unavailable Yessy Admitting Clinician Unavailable Jocelyn_Suhas Admitting Clinician Unavailable AMERICO PURCELL Admitting Clinician Unavailable EMMANUEL GARCIA Admitting Clinician Unavailable SHAGUFTA MANCINI-ALEJANDRO Admitting Clinician Unavail BLAKE Arcos - Admitting Clinician Unavailable RADHA DELVALLE Admitting Clinician Unavailable Payers Payer Name Policy Type Policy Number Effective Date Expiration Date S ource HUMANA MEDICARE [id number] 2019 ADV 00:00:00 MEDICAID [facility] [id number] 2017 2017 00:00:00 00:00:00 MEDICARE A B [id number] 2005 2018 00:00:00 00:00:00 MEDICAID DIAZ [id number] 2017 00:00:00 WELLMED MEDICARE [id number] 2021 00:00:00 WELLMED DUAL [id number] COMPLETE SNP PPO-UHC HP-MEDICAID - [id number] MEDICAID HMO - HUMANA [id number] 2019 2019 HEALTHCARE 00:00:00 00:00:00 MEDICARE PART A [id number] \\T\\ B - MEDICARE ZZZ-STAR PLUS [id number] 2011 00:00:00 STAR PLUS - DIAZ [id number] 2018 2018 00:00:00 00:00:00 [facility] [id number] 2021 (MEDICARE 00:00:00 REPLACEMENT/ADVANT AGE - PPO) [facility] [id number] 2016 [facility] (MEDICAID 00:00:00 HMO) [facility] [id number] 2021 - DUAL ELIGIBLE 00:00:00 (MEDICARE REPLACEMENT/ADVANT AGE - PPO) [place] A-[place]: [id number] 2005 [employer] 00:00:00 - [facility] - FQHC MANAGED MEDICAID [id number] 2021 -GENERIC 00:00:00 GENERIC MEDICAID [id number] 2021 HMO 00:00:00 [place] HMO POS [id number] 2020 SELECT CHOICE 00:00:00 [facility] [id number] 2020 [employer] [place] 00:00:00 (MEDICAID H[place] [id number] [place] [facility] - [id number] FQHC (INSTITUTIONAL) [facility] [id number] HUMANA (MEDICARE [id number] REPLACEMENT/ADVANT AGE - PPO) HUMANA (PPO) [id number] MEDICARE B-[place]: [id number] 2005 [employer] 00:00:00 DIAZSonavation [id number] 2017 [facility] 00:00:00 PLUS - ASSISTED CARE CHOICE CARE [id number] 2019 00:00:00 MED[place]ID OF [place] [id number] 2017 00:00:00 Problems Condition Condition Condition Status Onset Resolution Last Treating Co mments Source Name Details Category Date Date Treatment Clinician Date Small Small Disease Active [facility] bowel bowel 5-11 [facility] obstructio obstructio 00:00: Me dical n n 00 Center Anxiety Anxiety Problem Active 2020-05 [place] 2-29 [...] Medical 00 Group Chronic Chronic Disease Active [facility] cystitis cystitis 9 Colleg e without without 00:00: of hematuria hematuria 00 [facility] marlene e Crohn's Crohn's Disease Active [facility] disease, disease, 9 Colleg e unspecifie unspecifie 00:00: of d, without d, without 00 Ok dicin complicati complicati e ons ons (HCCode) (HCCode) Acute Acute Problem Active [place] urinary Urinary 8-02 da tract Tract 00:00: Medical infection Infection 00 [place] [id number], [address], Diagnosis Active 2020-08-04 Me moria M25.561, M25.561, 3-15 16:47:00 l PAIN IN PAIN IN 00:00: Markus RIGHT KNEE RIGHT KNEE 00 Active 07/13/2020 [facility] M17.12 - M17.12 - Diagnosis Active 2020-05-11 [facility] UNILATERAL UNILATERAL 1-04 10:01:00 l PRIMARY PRIMARY 00:00: Markus OSTEOARTHR OSTEOARTHR 00 IT IT Active 05/04/2020 [facility] Avascular Avascular Problem Active 2019-05 [place] [...] al fracture fracture Ventral Ventral Disease Active [facility] incisional incisional 3-12 Co llege [...] HPV - Problem Active [place] Human Human 912 da papillomav Papillomav 00:00: Me dical irus [...] 8 da 00:00: Medical 00 Group Golden's Coosa's Problem Active [place] disease Disease 7 da 00:00: Medical 00 Group Abdominal Abdominal Disease Active [facility] Skin tag Skin Tag Problem Active [place] 6-19 da 00:00: Medical 00 Group Crohn's Crohn's Disease Active [facility] disease of disease of 06 Co llege both small both small 00:00: [...] 00 Medicin e Small Small Disease Active [facility] bowel bowel 06 Box obstructio obstructio 00:00: of n (HCCode) n (HCCode) 00 Me dicin e History of History of Disease Active B aylor Clostridiu Clostridiu 09-03 Co llege m m 00:00: of difficile difficile 00 Medi marlene infection infection e Chronic Chronic Disease Active [facility] abdominal abdominal 5-06 Ronny ege pain pain 00:00: of 00 Medicin e Macrocytic Macrocytic Disease [facility] anemia anemia 06 College 00:00: of 00 Medicin e Osteopenia Osteopenia Disease Active [facility] 5-06 College 00:00: of 00 Medicin e Heavy Heavy Disease Active [facility] smoker smoker -06 College 00:00: of 00 Medicin e Chronic [...] Me dical n) n) 00 Center Gastric Gastric Finding Active 2018-10-16 Me moria ulcer ulcer 11-23 21:53:21 l Active 00:00: [place] 11/23/2017 00 Finding 10/16/[address] [facility] Chest pain Chest Finding Active 2018-10-16 M emoria pain 11-23 21:53:21 l Active 00:00: Markus 11/23/2017 00 Finding 10/16/2018 [facility] Anxiety Anxiety Problem [...] infectious 00:00: Ho spita 00 l Clostridiu Clostridi Problem Active 2020-08-10 Memoria m um 6-12 06:24:10 l difficile difficile 00:00: Herm chelsey (organism) (organism) 00 Active 10/10/2016 Problem 08/10/2020 Stool 10/10/2016 Problem added by Discern Expert. [facility] [place] ABDOMINAL ABDOMINAL Diagnosis Active 2016-10-18 Memoria PAIN PAIN 6-11 07:22:00 l Active 00:00: [place] 10/09/[address] [place] [address] [place] INSECT INSECT Diagnosis Active 2015-052016-02-10 Me moria BITE BITE 0-08 16:26:00 l Active 08:00: Markus 02/06/2016 00 [facility] VOMITING VOMITING Diagnosis Active 2014-08-13 Memoria Active 08-13 08:22:00 l 08/13/2014 00:00: [place] DIARRHEA DIARRHEA Diagnosis Active 2014-01-14 Memoria Active 01-14 08:28:00 l 01/14/2014 05:00: Sony espinosa [place] HEAT HEAT Diagnosis Active 2013-12-10 Mem oria EXPOSURE EXPOSURE 11-22 08:48:00 l Active 00:00: Markus 11/22/2013 00 [place] ANXIETY ANXIETY Condition Active 2013-11-27 Memoria DEPRESSION DEPRESSION 4 06:16:00 l Active 00:00: [place] 08/05/2013 00 Condition 11/27/2013 Medical Group Mixed Mixed Problem Active 2020-08-10 Isreal adiel anxiety anxiety 4 06:24:10 l and and 00:00: Markus depressive depressive 00 disorder disorder (disorder) (disorder) Active 08/05/2013 Problem 08/10/2020 Data migrated from [facility] on 09/27/14. [facility], [facility], [place] HYPOTHYROI HYPOTHYRO Condition Active 2012-052013-11-27 Memoria DISM IDISM 0-04 06:16:00 l Active 00:00: Markus 02/01/2013 00 Condition 11/27/2013 Medical Group CROHN'S CROHN'S Condition Active 2012-052013-11-27 Mem[facility] DISEASE DISEASE 0-04 06:16:00 l Active 00:00: Markus 02/01/2013 00 Condition 11/27/2013 Medical Group ENDOMETRIO ENDOMETRI Condition Active 2012-052013-11-27 Memoria SIS OSIS 0-04 06:16:00 l Active 00:00: [place] 02/01/2013 00 Condition 11/27/2013 Medical Group HERPES HERPES Condition Active 2012-052013-11-27 Me moria SIMPLEX SIMPLEX 0-04 06:16:00 l INFECTION INFECTION 00:00: Herm chelsey Active 00 02/01/2013 Condition 11/27/2013 Medical Group LONG-TERM LONG-TERM Condition Active 2012-052013-11-27 Memoria (CURRENT) (CURRENT) 0-04 06:16:00 l USE OF USE OF 00:00: [place] OTHER OTHER 00 MEDICATION MEDICATION S S Active 02/01/2013 Condition 11/27/2013 Medical Group Long-term Long-term Problem Active 2012-052020-08-10 Memoria drug drug 0-04 06:24:10 l therapy therapy 00:00: Markus (procedure (procedure 00 ) ) Active 02/01/2013 Problem 08/10/2020 Data migrated from [employer] on 09/27/14. [facility], [facility] [place] FH LUNG FH LUNG Condition Active 2013-11-27 Memoria CANCER CANCER 06:16:00 l Active Markus Condition 11/27/2013 Medical Group Bipolar I Bipolar I Finding Active 2018-10-16 Memoria disorder disorder 21:53:21 l Active Markus Finding 10/16/[address] [facility] Chronic Chronic Finding Active 2018-10-16 Me moria pain pain 21:53:21 l syndrome syndrome Sony n Active Finding 10/16/[address] [facility] Incisional Incisiona Diagnosis Active 2019-07-03 Memoria hernia, l hernia, 18:25:58 l without without [place] obstructio obstructio n or n or gangrene gangrene Active 07/03/2019 [facility] Smoking Smoking Diagnosis Active 2019-07-11 Memoria trying to trying to 18:27:32 l quit quit [place] Active 07/11/2019 [facility] Chronic Chronic Diagnosis Active 2019-12-20 Memoria pain of pain of 21:16:37 l both knees both knees He rmann Active 12/20/2019 [facility] Knee Knee Diagnosis Active 2019-12-20 Mem oria osteonecro osteonecro 21:16:37 l sis sis Markus (HCCode) (HCCode) Active 12/20/2019 [facility] Effusion, Effusion, Diagnosis Active 2019-11-07 Memoria left knee left knee 14:38:40 l Active Markus 11/07/2019 [facility] Health Hypothyroi Hypothyro Problem Resolve 2020-08-10 Memoria dism idism d 06:24:10 l (disorder) (disorder) He rmann Resolved Problem 08/10/2020 [facility], [facility], [facility] [place] Abdominal Abdominal Problem Resolve 2016-02-13 Memoria structure structure d 03:41:05 l (body (body Markus structure) structure) Resolved Problem 02/13/2016 [facility], [facility] [place] Colitis Colitis Problem Active 2020-08-10 Me moria (disorder) (disorder) 06:24:10 l Active [place] Problem 08/10/2020 [facility], [facility], [facility] [place] Osteoarthr Osteoarth Problem Active 2020-08-10 Memoria itis ritis 06:24:10 l (disorder) (disorder) He rmann Active Problem 08/10/2020 [facility] Pain Pain Problem Active 2020-08-10 Memor ia (finding) (finding) 06:24:10 l Active Markus Problem 08/10/2020 [facility], [facility], [facility] [place] Panic Panic Problem Active [place] disorder Disorder da without without [facility] Generalize Generalize Problem Active M [place] d anxiety d Anxiety da disorder Disorder [facility] Crohn's Crohn's Diagnosis Active 2017-2018-10-16 2019-06-19 Memoria disease disease 7- 21:53:21 17:27:41 l with with 00:00: Markus complicati complicati 00 on, on, unspecifie unspecifie d d gastrointe gastrointe stinal stinal tract tract location location (HCCode) (HCCode) Active 06/19/2019 [facility] History of Past Illness Condition Condition Condition Status Onset Resolution Last Treating Co mments Source Name Details Category Date Date Treatment Clinician Date Unspecifie Unspecifi Problem 2016-052017-02-21 2017-02-21 Memoria d ed 0- 01:25:53 01:25:53 l abdominal abdominal 05:00: Herm chelsey pain pain 00 02/18/2017 7 [place] Discharge Discharge Problem 2015-052016-02-13 2016-02-13 Memoria Diagnosis: Diagnosis: 0-12 03:41:05 03:41:05 l Erythema Erythema 05:00: Sony n nodosum nodosum 00 02/10/2016 6 [facility] Discharge Discharge Problem 2014-08-16 2014-08-16 Memoria Diagnosis: Diagnosis: 08-13 08:06:50 08:06:50 l Diarrhea Diarrhea 05:00: Sony espinosa 08/13/2014 00 5 [facility] Discharge Discharge Problem 2014-08-16 2014-08-16 Memoria Diagnosis: Diagnosis: 08-13 08:06:50 08:06:50 l Hypokalemi Hypokalemi 05:00: He rmann a a 00 08/13/2014 5 [facility] [place] Discharge Discharge Problem 2013-052014-03-11 2014-03-11 Memoria Diagnosis: Diagnosis: 05-09 21:37:50 21:37:50 l Abdominal Abdominal 06:00: [place] parisi pain pain 00 03/09/2014 03/11/2014 [facility] [place] Discharge Discharge Problem 2013-052014-03-11 2014-03-11 Memoria Diagnosis: Diagnosis: 05-09 21:37:50 21:37:50 l UTI UTI 06:00: Markus (urinary (urinary 00 tract tract infection) infection) 03/09/2014 03/11/2014 [facility] Discharge Discharge Problem 2013-052014-03-11 2014-03-11 Memoria Diagnosis: Diagnosis: 05-09 21:37:50 21:37:50 l Vomiting Vomiting 06:00: Sony espinosa 03/09/2014 00 03/11/2014 [facility] Discharge Problem 2014-01-17 2014-01-17 Memoria Diagnosis: Discharge 01-14 04:54:49 04:54:49 l UTI (lower Diagnosis: 05:00: He rmann urinary UTI (lower 00 tract urinary infection) tract infection) 01/14/2014 01/17/2014 [place] Allergies, Adverse Reactions, Alerts Allergy Allergy Status Severity Reaction(s) Onset Inactive Treating Comm ents Source Name Type Date Date Clinician Morphine Propensi Active Other (See Pt states Methodi ty to Comments) 05-[address] adverse 00:00: doesn't Hospita reaction 00 work per l s to pt drug MORPHINE Allergy Active Low Other [facility] 4-19 00:00: 00 Morphine Allergy Active [place] to 4- da substanc 00:00: Medical e 00 Group Morphine Drug Active Other (See Patient [facility] Allergy Comments) 08-17 said does Mirtha es 00:00: not work Medical 00 for her. Center Morphine Propensi Active Mild Other [facility] ty to 08-17 reaction( College [...] Memori a xacin xacin 7-25 l 00:00: [place] prometha prometha Active Memori a zine zine 7-25 l 00:00: CIPROFLO DRUG Active High Anaphylaxis Uni vers XACIN INGREDI 7-12 ity of 00:00: [address] [place] PROMETHA DRUG Active High Anaphylaxis Uni vers ZINE HCL INGREDI 7-12 ity of 00:00: [address] [place] Ciproflo Propensi Active Swelling Meth [...] n<sup>2< 0-04 l /sup> /sup> 05:00: Markus CIPRO CIPRO Active 2012-05 Memoria 0-04 l 00:00: Markus 00 PHENERGA PHENERGA Active 2012-05 Memori a N N 0-04 l 00:00: CIPROFLO Allergy Active High Swelling [facility] XACIN 10-24 00:00: 00 PROMETHA Allergy Active High Anaphylaxis SL [facility] ZINE HCL 10-24 00:00: 00 Ciproflo Allergy Active Severe, Anaphylaxis, [place] xacin to Severe, Hives, 10-24 da substanc Severe Swelling 00:00: Medica l e 00 Group Ciproflo Drug Active Swelling, Makes [facility] xacin Allergy Anaphylaxis, 10-24 tongue Mirtha es Hives 00:00: [place] [id number] Center Prometha Propensi Active Anaphylaxis, Muscle [facility] zine Hcl ty to Other (See 10-24 [facility] adverse Comments) 00:00: Medica l reaction 00 Center s Ciproflo Propensi Active Swelling [facility] or xacin ty to 10-24 College adverse 00:00: of reaction 00 Medicin s to e drug Prometha Propensi Active Other (See Muscle Ba ylor zine Hcl ty to Comments) 10-24 [facility] adverse 00:00: of reaction 00 Medicin s to e drug Prometha Prometha Active Memori a zine Hcl zine Hcl 10-24 l 00:00: Cipro Allergy Active Anaphylaxis [place] gor to da substanc [facility] Phenerga Allergy Active Anaphylaxis Mejia nye n to da substanc [facility] Trazodon Allergy Active Hives [place] to da substanc [facility] Family History Family Member Diagnosis Comments Start Date Stop Date Source Natural father [facility] Maternal grandfather Cancer [facility] Maternal grandfather Cancer [facility] Natural mother Other [facility] Natural mother Endometriosis [facility] Maternal grandmother Dementia [facility] Maternal grandmother Endometriosis C [facility] Maternal uncle Suicidality [facility] Social History Social Habit Start Date Stop Date Quantity Comments Source History SDOH [facility] Alcohol Std Drinks Medica l Center History SDOH [facility] Alcohol Binge [facility] [address] [facility] History SDOH [facility] Alcohol Comment Medical C enter History of tobacco Cigarette [facility] Exposure to Not sure [facility]-CoV-2 (event) Hospit al Alcohol intake 2021-07-05 2021-07-[address] [facility]tha es 00:00:00 00:00:00 non-drinker of Medical Ce nter alcohol (finding) Tobacco Comment 2021-05-03 2021-05-03 [address] [facility] 00:00:00 00:00:[address] 2021 Cigarettes smoked 2018-07-06 2018-07-[address] [facility] current (pack per 00:00:00 00:00:00 Medical Center day) - Reported Cigarette 2018-07-06 2018-07-[address] [facility] pack-years 00:00:00 00:00:00 [facility] Center Tobacco use and 2018-07-06 2018-07-[address] [facility] exposure 00:00:00 00:00:00 Medical Center History SDOH 2018-07-06 2018-07-[address] [facility] Alcohol Frequency 00:00:00 00:00:00 [facility] Center Social History 2014-01-14 2014-01-14 [facility] 03:02:48 03:02:48 Sex Assigned At [address] 00:00:00 00:00:00 [facility] Center Smoking Status Start Date Stop Date Source Light Tobacco Smoker [place] [facility] Heavy Tobacco Smoker [place] [facility] Social History 2019-11-07 00:00:00 [facility] Medications Ordered Filled Start Stop Current Ordering Indication Dosage Frequency Signature Comments Components Source Medication Medication Date Date Medication? Clinician (SIG) Name Name escitalopra Yes post 10mg QD Take [address] [facility] oxalate 5-13 traumatic by mouth L ukes (LEXAPRO) 17:57: stress daily. Medi payam 10 MG 06 disorder Center tablet clonazePAM Yes 1mg Q.[id number] Take [address] (KLONOPIN) 5-13 [id number] by mouth 3 [facility] 1 MG tablet 17:57: 3D (three) Med ical 06 times Center daily . multivitami 2022-0 Yes 1{tbl} QD Take [address] n,tx-iron-m 5-13 tablet by Mirtha es inerals Tab 17:57: mouth Medic al 06 daily. Center busPIRone 0 Yes 15mg Q.25D Take [address] (BUSPAR) 15 5-13 by mouth 4 Gina kes MG tablet 17:57: (four) Medica l 06 times Center daily. gabapentin 0 Yes 300mg Q.[id number] Take [address] (NEURONTIN) 5-13 [id number] mg by L ukes 300 MG 17:57: 3D mouth 3 Medical capsule 06 (three) Center times daily. estrogens, 0 Yes 1mg QD Take [address] conjugated, 5-13 by mouth Luke s (PREMARIN) 17:57: daily. Medic al 1.25 MG 06 Center tablet pantoprazol 0 Yes 40mg Q.5D Take [address] e 5-13 by mouth 2 [facility] (PROTONIX) 17:57: (two) Medica l 40 MG 06 times Center tablet daily. ferrous 0 Yes 65mg Take [address] sulfate 325 5-13 by mouth Luke s (65 FE) MG 17:57: daily with M edical tablet 06 breakfast. Center calcium 0 Yes 600mg QD Take 600 [facility] carbonate 5-13 mg by Lukes (OS-PAYAM) 17:57: mouth Medical 600 mg 06 daily. Center calcium (1,500 mg) Tab cholecalcif 0 Yes 5000U QD Take 5,[address] estephania, 5-13 Units by [facility]ukes vitamin D3, 17:57: mouth Medic al 125 mcg 06 daily. Center (5,000 unit) Tab zoledronic 0 Yes Inject [facility] t acid/mannit 5-13 intravenou Gina kes ol-water 17:57: sly. Medical (RECLAST 06 Center IV) baclofen 2021-0 Yes 10mg Q.[id number] Take [address] (LIORESAL) 5-13 [id number] by mouth 3 [facility]ukes 10 MG 17:57: 3D (three) Medical tablet 06 times Center daily. sertraline 0 Yes 25mg QD Take [address] (ZOLOFT) 25 5-13 by mouth Luke s MG tablet 17:57: daily. Medica l 06 Center varenicline Yes 1mg Q.5D Take [address] (CHANTIX) 1 5-13 by mouth 2 Gina kes mg tablet 17:57: (two) Medical 06 times Center daily Give with meals and with a full glass of water. . alfuzosin Yes 10mg QD Take [address] (UROXATRAL) 5-13 by mouth Luke s 10 mg 24 hr 17:57: daily. Medi payam tablet 06 Center cyclobenzap 2021- No 10mg Take [address] rine 5-13 05-23 tablet (10 [facility]ukes (FLEXERIL) 00:00: 23:59 mg total) M edical 10 MG 00 :00 by mouth 3 Center tablet (three) times daily as needed for Muscle spasms for up to 10 days. polyethylen 2021- No 17g Q.5D Take [address] e glycol -10-09 by mouth 2 Luke s (GLYCOLAX) 00:00: 23:59 (two) Medic al 17 gram 00 :00 times Center packet daily for 30 days. sodium 2021- No Inject [facility] chloride 07-07 intravenou Luke s 0.9% (NS) 10:40: 00:00 sly Medical SolP with 41 :00 continuous Cent er HYDROmorpho . ne 10 mg/mL Soln 20 mcg/mL cholestyram 2021- No 1{packe Q.5D Take [address] ine 07-07 t} packet by [place]ang sugar-free 00:00: 23:59 mouth 2 Med ical (QUESTRAN 00 :00 (two) Center LIGHT) 4 times gram PwPk daily for packet 90 days. oxyCODONE-a 2021- No 1{tbl} Take [address] cetaminophe 07-0719 tablet by Gina soria n 00:00: 23:59 mouth Medical (PERCOCET) 00 :00 every 4 Center 10-325 mg (four) per tablet hours as needed for up to 10 days. Max Daily Amount: 6 tablets oxyCODONE-a 2021- No 1{tbl} Take [address] cetaminophe 07-07 tablet by Gina soria n 00:00: 00:00 mouth Medical (PERCOCET) 00 :00 every 4 Center 10-325 mg (four) per tablet hours as needed for up to 10 days. Max Daily Amount: 6 tablets terconazole 2021- No 1{appli QD Place [address] [facility] (TERAZOL 7) 07-05 cator} applicator [facility] 0.4 % 04:56: 00:00 vaginally Medica l vaginal 46 :00 nightly. Center cream sucralfate 2021- No 1g Q.25D Take [address] (CARAFATE) 07-05 by mouth 4 Gina kes 1 gram 04:56: 00:00 (four) Medical tablet 19 :00 times Center daily. TERBINAFINE No 250mg QD Take [address] [facility] HCL ORAL 07-05-07 mg by [facility] 04:56: 00:00 mouth Medical 13 :00 daily. [place] nitrofurant No 100mg Q.5D Take [address] [facility] oin, 07-05 03-07 mg by [facility] macrocrysta 04:55: 00:00 mouth 2 Me dical l-monohydra 55 :00 (two) Center te, times (MACROBID) daily. 100 MG capsule mesalamine 2021- Crohn's 2400mg Take 2,[address] [facility] (LIALDA) 07-05-07 disease mg by [facility] 1.2 gram EC 04:55: 00:00 mouth Medi payam tablet 31 :00 daily with Center breakfast. hydroCHLORO 2021- No 25mg QD Take [address] [facility] thiazide 07-05-07 by mouth [facility] (MICROZIDE) 04:55: 00:00 daily. Med ical 12.5 mg 25 :00 Center capsule fluconazole 2021- No 100mg QD Take [address] [facility] (DIFLUCAN) 07-05 03-07 mg by [facility] 100 MG 04:55: 00:00 mouth Medical tablet 13 :00 daily. Center clonAZEPAM 2022-0 Yes 1mg Take 1 mg [...] 16:29: mouth. [facility]osp[facility] tablet 47 l baclofen 2-0 Yes 20mg Q.[id number] Take 20 mg [facility] (LIORESAL) 1-[id number] mouth [address] 20 MG 16:29: 3D (three) Hospita tablet 47 times a l day. gabapentin 2021-0 Yes 600mg Q.[id number] Take 600 [facility] (NEURONTIN) 1-10 [id number] mg by s t 600 mg 16:29: 3D mouth 3 Hospita tablet 47 (three) l times a day. estradioL 2021-0 Yes 1mg QD Take 1 mg [facility] (ESTRACE) 1 1-[address] MG tablet 16:29: daily. Hospit a 47 l clonAZEPAM 2021-0 Yes 1mg Take 1 mg Me thodi [...] 16:29: mouth. Hospita tablet 47 l baclofen 2-0 Yes 20mg Q.[id number] Take 20 mg [facility] (LIORESAL) 1-10 [id number] mouth [address] 20 MG 16:29: 3D (three) Hospita tablet 47 times a l day. gabapentin 2022-0 Yes 600mg Q.[id number] Take 600 [facility] (NEURONTIN) 1-10 [id number] mg by s t 600 mg 16:29: [...] tablet 47 l baclofen 2021-0 Yes 20mg Q.[id number] Take 20 mg [facility] (LIORESAL) 1-10 [id number] mouth [facility] [address] 20 MG 16:29: 3D (three) Hospita tablet 47 times a l day. gabapentin 2022-0 Yes 600mg Q.54980009 Take 600 [facility] (NEURONTIN) 1-10 [id number] mg by s t 600 mg 16:29: [...] tablet 47 l baclofen 2021-0 Yes 20mg Q.15027140 Take 20 mg [facility] (LIORESAL) 1-[id number] mouth [address] 20 MG 16:29: 3D (three) Hospita tablet 47 times a l day. gabapentin 2021-0 Yes 600mg Q.[id number] Take 600 [facility] (NEURONTIN) 1-10 [id number] mg by s t 600 mg 16:29: 3D mouth 3 Hospita tablet 47 (three) l times a day. estradioL 2021-0 Yes 1mg QD Take 1 mg [facility] (ESTRACE) 1 1-[address] MG tablet 16:29: daily. Hospit a 47 l clonAZEPAM 2021-0 Yes 1mg Take 1 mg Me thodi [...] tablet 47 l baclofen 2021-0 Yes 20mg Q.45741489 Take 20 mg [facility] (LIORESAL) 1-[id number] mouth [address] 20 MG 16:29: 3D (three) Hospita tablet 47 times a l day. gabapentin 2021-0 Yes 600mg Q.[id number] Take 600 [facility] (NEURONTIN) 1-10 [id number] mg by s t 600 mg 16:29: 3D mouth 3 Hospita tablet 47 (three) l times a day. estradioL 2021-0 Yes 1mg QD Take 1 mg [facility] (ESTRACE) 1 1-[address] MG tablet 16:29: daily. Hospit a 47 l pantoprazol 2021-0 2022- No 40mg QD Take 40 mg [facility] 05-[facility]- by mouth st (PROTONIX) 11:20: 00:00 daily. [...] ospita 36 :00 PO QD l methocarbam 2022-0 2022- No 500mg Q6H Take 500 [facility] 1-06 01-[address] (ROBAXIN) 11:18: 00:00 mouth Hospit a 500 MG 28 :00 every 6 l tablet (six) hours. methocarbam 2022-0 2022- No 500mg Q6H Take 500 [facility] 1[facility] 01-[address] (ROBAXIN) 11:18: 00:00 mouth Hospit a 500 MG 28 :00 every 6 l tablet (six) hours. methocarbam 2022-0 2022- No 500mg Q6H Take 500 [facility] 1-[facility] 01-[address] (ROBAXIN) 11:18: 00:00 mouth Hospit a 500 MG 28 :00 every 6 l tablet (six) hours. methocarbam 2022-0 2022- No 500mg Q6H Take 500 [facility] 1-06 01-[address] (ROBAXIN) 11:18: 00:00 mouth Hospit a 500 MG 28 :00 every 6 l tablet (six) hours. methocarbam 2022-0 2022- No 500mg Q6H Take 500 [facility] 1-[facility] 01-[address] (ROBAXIN) 11:18: 00:00 [...] Medical tablet 14 times Center daily. nitrofurant 2-0 Yes 100mg Q.5D Take 100 C [facility] [...] daily. Medicin e estradiol 2020-05 Yes estradiol [place] [facility] (ESTRACE) 1 1-12 1 mg College MG tablet 09:36: tablet of 32 Medicin e montelukast 2020-05 Yes 10mg Take 10 mg [facility] (SINGULAIR) 1-12 by mouth Ronny ege 10 MG 09:36: daily. of tablet 32 Medicin e phenazopyri 2020-05 Yes 200mg Take 1 [place] [facility] dine 1-12 Tablet by Box (PYRIDIUM) 00:00: mouth 3 of 200 MG 00 times Medicin tablet daily as e needed for Pain. Ustekinumab 2020-05 Yes [id number] INJECT [facility] (STELARA) 05-09 90MG College 90 MG/ML 00:00: SUBCUTANEO of injection 00 USLY EVERY Medi marlene 28 DAYS e Sertraline 2020- No Take by [place] [facility] HCl (ZOLOFT 01-19 mouth. Colle ge OR) 15:11: 00:00 of 09 :00 Medicin e Sertraline 2020- No Take by [place] [facility] HCl (ZOLOFT 01-19 mouth. Colle ge OR) 15:11: 00:00 of 09 :00 Medicin e escitalopra 2020- No 20mg Take 20 mg [facility] m (LEXAPRO) 01-19 by mouth Col lege 20 MG 15:10: 00:00 daily. of tablet 33 :00 Medicin e escitalopra 2020- No 20mg Take 20 mg [facility] m (LEXAPRO) 01-19 by mouth Col lege 20 MG 15:10: 00:00 daily. of tablet 33 :00 Medicin e Mesalamine 2020- No 1.2mg Take 1.2 B [facility] 1.2 g TBEC 01-19 mg by Box 15:08: 00:00 mouth of 54 :00 daily. Medicin e Mesalamine 2020- No 1.2mg Take 1.2 [facility] 1.2 g TBEC 01-19 mg by Box 15:08: 00:00 mouth of 54 :00 daily. [...] 35 :00 Medicin e raNITIdine 2020- No [facility] HCl (ZANTAC 01-19 College OR) 15:08: 00:00 of 17 :00 Medicin e raNITIdine 2020- No Kev HCl (ZANTAC 01-19 Box OR) 15:08: 00:00 of 17 :00 Medicin e Sulfamethox 2020- No Take by [facility] azole-Trime 01-19 mouth. Colle ge thoprim 15:07: 00:00 of (BACTRIM 49 :00 Medicin OR) e Sulfamethox 2020- No Take by [facility] azole-Trime 01-19 mouth. Colle ge thoprim 15:07: 00:00 of (BACTRIM 49 :00 Medicin OR) e quetiapine 2020- No 50mg Take 50 mg [facility] (SEROQUEL) 01-19 by mouth Ronny ege 50 MG 15:07: 00:00 daily. of tablet 31 :00 Medicin e quetiapine 2020- No 50mg Take 50 mg [facility] (SEROQUEL) 01-19 by mouth Ronny ege 50 MG 15:07: 00:00 daily. of tablet 31 :00 Medicin e cefUROXime 2020- No cefuroxime [facility] (CEFTIN) 01-19 axetil 500 Ronny ege 500 MG 15:06: 00:00 mg tablet of tablet 48 :00 Medicin e cefUROXime 2020- No cefuroxime Kev (CEFTIN) 01-19 axetil 500 Ronny ege 500 MG 15:06: 00:00 mg tablet of tablet 48 :00 Medicin e Nitrofurant 0 Yes Take by [place] [facility] oin Monohyd 01-19 mouth. Colleg e Macro 14:16: of (MACROBID 37 Medicin OR) e Nitrofurant 0 Yes Take by [place] [facility] oin Monohyd - mouth. Colleg e Macro 14:16: of (MACROBID 37 Medicin OR) e clonazePAM Yes 1mg Take 1 mg [facility] (KLONOPIN 9-21 by mouth 3 Ronny ege OR) 14:15: times of 26 daily. Medicin e clonazePAM Yes 1mg Take 1 mg [facility] (KLONOPIN 9-21 by mouth 3 Ronny ege OR) 14:15: times of 26 daily. Medicin e busPIRone 0 Yes 10mg Take 10 mg [facility] (BUSPAR) 10 9-21 by mouth 3 Co llege MG tablet 14:15: times of 26 daily. Medicin e estradiol 0 Yes estradiol [place] [facility] (ESTRACE) 1 - 1 mg College MG tablet 14:15: tablet of 26 Medicin e busPIRone 0 Yes 10mg Take 10 mg [facility] (BUSPAR) 10 - by mouth 3 Co llege MG tablet 14:15: times of 26 daily. Medicin e montelukast Yes 10mg Take 10 mg [facility] (SINGULAIR) - by mouth Ronny ege 10 MG 14:15: daily. of tablet 26 Medicin e estradiol Yes estradiol [place] [facility] (ESTRACE) 1 - 1 mg College MG tablet 14:15: tablet of 26 Medicin e montelukast Yes 10mg Take 10 mg [facility] (SINGULAIR) 01-19 by mouth Rnony ege 10 MG 14:15: daily. of tablet 26 Medicin e pantoprazol Yes [id number] TAKE 1 Kev e 8-05 TABLET BY Box (PROTONIX) 00:00: MOUTH of 40 MG 00 TWICE Medicin tablet DAILY e pantoprazol 0 Yes [id number] TAKE 1 Kev e 8-05 TABLET BY Box (PROTONIX) 00:00: MOUTH of 40 MG 00 TWICE Medicin tablet DAILY e pantoprazol 0 Yes [id number] TAKE 1 Kev e 8-05 TABLET BY Box (PROTONIX) 00:00: MOUTH of 40 MG 00 TWICE Medicin tablet DAILY e cholestyram 0 Yes 1{packe Take 1 B [facility] ine 6-21 t} Packet by Box (QUESTRAN) 00:00: mouth of 4 g packet 00 daily. Medicin e cholestyram 0 Yes 1{packe Take 1 [facility] ine 6-21 t} Packet by Box (QUESTRAN) 00:00: mouth of 4 g packet 00 daily. Medicin e cholestyram 2020-0 2020- No 1{packe Take 1 Kev ine 6-21 11-12 t} Packet by Box (FLORENTIN) 00:00: 00:00 mouth of 4 g packet 00 :00 daily. Medicin e cefadroxil Yes 500 mg = 1 M emoria 500 mg oral 4-06 cap, PO, l capsule 14:00: BID, Markus 00 start medication on 08/04/20 eRx sent to pharmacy [facility] #[id number] [address] [place] [address] , X 7 day, # 14 cap, 0 Refill(s), called to pharmacy meloxicam Yes 15 mg = 1 Mem oria 15 mg oral 4-06 tab, PO, l tablet 14:00: Daily, Sony n 00 start medication on 08/04/20 eRx sent to pharmacy [facility] #[id number] [address] [place] [address] [phone], # 30 tab, 0 Refill(s), called to pharmacy Aspirin 81 Yes 81 mg = 1 Me moria MG Enteric 4-06 tab, PO, l Coated 02:00: BID, [place] Tablet 00 start medication on 08/03/20 eRx sent to pharmacy [facility] #[id number] [address] [place] [address] , # 60 tab, 0 Refill(s), called to pharmacy Ustekinumab Yes [id number] INJECT [facility] (STELARA) 4-06 90MG [facility] 90 MG/ML 00:00: SUBCUTANEO of injection 00 USLY EVERY Medi marlene 28 DAYS e Ustekinumab Yes [id number] INJECT [facility] (STELARA) 4-06 90MG [facility] 90 MG/ML 00:00: SUBCUTANEO of injection 00 USLY EVERY Medi marlene 28 DAYS e Ondansetron Yes 4 mg = 1 Me moria 4 MG 4-05 tab, PO, l Disintegrat 22:00: Q8H, PRN He rmann ing Tablet 00 Nausea & Vomiting, allow tablet to dissolve on tongue start medication on 08/03/20 eRx sent to pharmacy [facility] #[id number] [address] [facility] [place] [address] , # 12 tab, 0 Refill(s), ... [...] (ANES) 08-03 Drug form: l 12:27: SOLN, [place] 00 ONCE, Stop date: 08/03/20 7:27:00 CDT lidocaine No Route: IV, Me moria (ANES) 08-03 Drug form: l 12:27: INJ, ONCE, [place] 00 Stop date: 08/03/20 7:27:00 CDT fentaNYL No Route: IV, Mem oria (ANES) 08-03 Drug form: l 12:27: INJ, ONCE, Stop date: 08/03/20 7:27:00 CDT propofol No Route: IV, Mem oria (ANES) 08-03 Drug form: l 12:27: INJ, ONCE, [place] 00 Stop date: 08/03/20 7:27:00 CDT Sodium No 500 mL, Memoria Chloride 4- Infuse l 0.9% 12:10: Over: 20 [place] (Bolus) IV 00 minutes, Route: IV, ONCE, Dosing Weight 77.273 kg, Start date: 08/03/20 7:10:00 CDT, Stop date: 08/03/20 7:10:00 CDT Labetalol 2021-0 No 10 mg, Memori a - Route: l 12:10: IVP, Markus 00 Q5Min, Dosing Weight 77.273, kg, PRN Elevated BP, Start date: 08/03/20 7:10:00 CDT, Duration: 5 doses or times, Stop date: Limited # of times Metoprolol 2020-0 No 1 mg, Memori a - Route: l 12:10: IVP, Markus 00 Q5Min, Dosing Weight 77.273, kg, PRN Other -See Comment, Start date: 08/03/20 7:10:00 CDT, Duration: 5 doses or times, Stop date: Limited # of times Ketorolac 2020-0 No 30 mg, Memori a 08-03 Route: l 12:10: IVP, ONCE, [place] 00 Dosing Weight 77.273, kg, Start date: [...] day, Stop date: 09/02/20 7:09:00 CDT Naloxone 2020-0 No 0.4 mg, Memori a 08-03 Route: l 12:10: IVP, [place] 00 Q2MIN, Dosing Weight 77.273, kg, PRN [...] ia 4-04 (Same as: l 04:00: Pepcid) [place] 00 Zofran ODT No Notes: Memor ia 4-04 (Same as: l 04:00: Zofran ODT) Acetaminoph No Notes: Max Memoria en 4-04 acetaminop l 04:00: hen 4000 [place] 00 mg/day (4 gm/day). (Same as: Tylenol Extra Strength) cefadroxil Yes 500 mg = 1 M emoria 500 mg oral 1-12 cap, PO, l capsule 15:00: BID, Markus 00 start medication on 05/12/20 eRx sent to pharmacy [facility] #[id number] [place] [address] [place] [address] , X 7 day, # 14 cap, 0 Refill(s), called to pharmacy meloxicam Yes 15 mg = 1 Mem oria 15 mg oral 1-12 tab, PO, l tablet 15:00: Daily, Sony n 00 start medication on 05/12/20 eRx sent to pharmacy [facility] #[id number] [place] [place] [address] , # 30 tab, 0 Refill(s), called to pharmacy meloxicam No Notes: Memori a 1-12 (Same as: l 15:00: Mobic) Markus 00 Aspirin 81 No Notes: Do Me moria MG Enteric -12 not crush l Coated 14:00: or chew. [place] Tablet 00 (Same As: Ecotrin) Cefazolin No Notes: Memori a 1-12 (Same As: l 09:00: Ancef, Markus 00 Kefzol) MEDICATION WASTE Product Size: 1000 mg Product Wasted: ___ mg Docusate No Notes: Memoria Sodium 100 -12 (Same as: l MG Oral 03:06: Colace) [place] Capsule 00 (Do Not [Colace] Crush) Aspirin 81 Yes 81 mg = 1 Me moria MG Enteric -12 tab, PO, l Coated 03:00: BID, [place] Tablet 00 start medication on 05/11/20 eRx sent to pharmacy [facility] #[id number] [place] [place] [address] , # 60 tab, 0 Refill(s), called to pharmacy gabapentin No Notes: Memor ia 300 MG Oral -12 (Same as: l Capsule 03:00: Neurontin) Herm chelsey 00 Saline No Notes: Memoria Flush 0.9% 12 (Same as: l 03:00: BD [place] 00 Posiflush) Ondansetron Yes 4 mg = 1 Me moria 4 MG 1-12 tab, PO, l Disintegrat 00:29: Q8H, PRN He rmann ing Tablet 00 Nausea & Vomiting, allow tablet to dissolve on tongue start medication on 05/11/20 eRx sent to pharmacy [facility] #[id number] [place] [place] [address] , # 12 tab, 0 Refill(s). .. Klonopin No Notes: Memoria -11 (Same As: l 23:10: KlonoPIN) Hazardous Drug [...] Total Volume: 1,000, Start date: 05/11/20 15:03:00 HAND BUFFER, Duration: 30 day, Stop date: 06/10/20 15:02:00 HAND BUFFER, 1.72, m2, 0 Acetaminoph No Notes: Do M emoria en 325 MG / 05-11 not exceed l Hydrocodone 21:03: 4gm/day of [place] Bitartrate 00 acetaminop 10 MG Oral hen. (Same Tablet as: [place] 325/10) Zofran ODT No Notes: Memor ia -11 (Same as: l 21:03: Zofran Markus 00 ODT) Benadryl No Notes: Memoria - (Same as: l 21:03: Benadryl) [place] Melatonin 3 No Notes: Isreal adiel MG Extended 05-11 (Same as: l Release 21:03: Melatonin) Herm chelsey Tablet 00 Tums No Notes: Memoria -11 (Same As: l 21:03: Tums) Markus Calcium Carbonate 500 mg = 200 mg elemental calcium Dose = mg calcium carbonate ( mg elemental calcium) Saline No Notes: Memoria Flush 0.9% 05-11 (Same as: l 21:03: BD [place] Posiflush) ceFAZolin No Route: IV, Me moria (ANES) 05-11 Drug form: l 19:57: INJ, ONCE, Stop date: 05/11/20 13:57:00 HAND BUFFER lidocaine 2020-0 No Route: IV, Me moria (ANES) 05-11 Drug form: l 19:52: INJ, ONCE, Stop date: 05/11/20 13:52:00 HAND BUFFER fentaNYL 2020-0 No Route: IV, Mem oria (ANES) 05-11 Drug form: l 19:52: INJ, ONCE, Stop date: 05/11/20 13:52:00 HAND BUFFER propofol 2020-0 No Route: IV, Mem oria (ANES) 05-11 Drug form: l 19:52: INJ, ONCE, Stop date: 05/11/20 13:52:00 HAND BUFFER midazolam 2020-0 No Route: IV, Me moria (ANES) 05-11 Drug form: l 19:47: SOLN, ONCE, Stop date: 05/11/20 13:47:00 HAND BUFFER famotidine No Route: IV, Gustavo emoria (ANES) 05-11 Drug form: l 19:47: INJ, ONCE, Stop date: 05/11/20 13:47:00 HAND BUFFER Oxycodone 2020-0 No 5 mg, Memoria Hydrochlori 05-11 Route: PO, l de 5 MG 19:36: Drug form: Herm chelsey Oral Tablet 00 TAB, Q4H, Dosing Weight 65.909, kg, PRN Pain Score 4-6, Start date: 05/11/20 13:36:00 HAND BUFFER, Duration: 30 day, Stop date: 06/10/20 13:35:00 HAND BUFFER Fentanyl 2020-0 No 25 Memoria 11 microgram, l 19:36: Route: Markus 00 IVP, Q5Min, Dosing Weight 65.909, kg, PRN Pain Score 4-6, Priority: Routine, Start date: 05/11/20 13:36:00 HAND BUFFER, Duration: 4 doses or times, Stop date: Limited # of times Flumazenil 0 No 0.2 mg, Isreal adiel 05-11 Route: l 19:36: IVP, PRN, Dosing Weight 65.909, kg, PRN Benzodiaze pine Reversal, Initial dose, Start date: 05/11/20 13:36:00 HAND BUFFER, Duration: 30 day, Stop date: 06/10/20 13:35:00 HAND BUFFER Naloxone No 0.4 mg, Memori a 05-11 Route: l 19:36: IVP, [place] 00 Q2MIN, Dosing Weight 65.909, kg, PRN Narcotic Reversal, Start date: 05/11/20 13:36:00 HAND BUFFER, Duration: 8 doses or times, Stop date: Limited # of times Meperidine No 12.5 mg, Mem oria 05-11 Route: l 19:36: IVP, [place] 00 Q30Min, Dosing Weight 65.909, kg, PRN Other -See Comment, For shivering, Start date: 05/11/20 13:36:00 HAND BUFFER, Duration: 2 doses or times, Stop date: Limited # of times Ondansetron No 4 mg, Memor ia 05-11 Route: l 19:36: IVP, ONCE, [place] Dosing Weight 65.909, kg, PRN Nausea & Vomiting, Start date: 05/11/20 13:36:00 HAND BUFFER tranexamic No Route: IV, M emoria acid (ANES) 05-11 Drug form: l 100 mg 19:29: INJ, Start Prachi nn date: 05/11/20 13:29:00 HAND BUFFER, Stop date: 05/11/20 14:29:00 HAND BUFFER propofol No Route: IV, Mem oria (ANES) 10 05-11 Drug form: l mg 19:17: INJ, Start [place] date: 05/11/20 13:17:00 HAND BUFFER, Stop date: 05/11/20 14:17:00 HAND BUFFER Lactated No Route: IV, Mem oria Ringers 05-11 Total l Injection 19:07: Volume: Prachi nn IV (ANES) 00 1,000, 1000 mL Start date: 05/11/20 13:07:00 HAND BUFFER, Stop date: 05/11/20 14:07:00 HAND BUFFER ceFAZolin + No Notes: Isreal adiel sterile 05-11 (Same As: l water 20 mL 06:00: Ancef, Herm chelsey Kefzol) MEDICATION WASTE Product Size: 1000 mg Product Wasted: ___ mg Zofran ODT No Notes: Memor ia 05-11 (Same as: l 06:00: Zofran Markus 00 ODT) CeleBREX No Notes: Memoria 05-11 NSAID. l 06:00: Please [place] 00 check indication . Not for seizure. [...] adiel ne 05-11 Concentrat l 06:00: ion: [place] 00 4mg/ml famotidine No Notes: Memor ia [...] mg = 1 Isreal adiel mg oral 07 tab, PO, l tablet 16:24: Daily, # [...] 57 disorder Center tablet clonazePAM Yes 1mg Q.[id number] Take [address] [facility] (KLONOPIN) 9-10 [id number] by mouth 3 [facility] 1 MG tablet 15:01: 3D (three) Med ical 57 times Center daily . multivitami Yes 1{tbl} QD Take [address] n,tx-iron-m 9-10 tablet by Mirtha es inerals Tab 15:01: mouth Medic al 57 daily. Center terconazole 2019-0 Yes 1{appli QD Place [address] [facility] (TERAZOL 7) 9-10 cator} applicator [facility] 0.4 % 15:01: vaginally Medical vaginal 57 nightly. [place] cream busPIRone 0 Yes 15mg Q.25D Take [address] (BUSPAR) 15 9-10 by mouth 4 Gina kes MG tablet 15:01: (four) Medica l 57 times Center daily. gabapentin 0 Yes 300mg Q.57392518 Take [address] (NEURONTIN) 9-10 [id number] mg by L ukes 300 MG 15:01: [...] Soln 20 mcg/mL baclofen 2020-0 Yes 10mg Q.72934693 Take [address] [facility] (LIORESAL) 9-10 [id number] by mouth 3 [facility] 10 MG 15:01: [...] disorder Center tablet clonazePAM 2020-0 Yes 1mg Q.32299420 Take [address] [facility] (KLONOPIN) 9-10 [id number] by mouth 3 [facility] 1 MG tablet [...] times Center daily. gabapentin 2020-0 Yes 300mg Q.21466133 Take [address] [facility] (NEURONTIN) 9-10 [id number] mg by L ukes 300 MG 15:01: [...] Soln 20 mcg/mL baclofen 2020-0 Yes 10mg Q.26723467 Take [address] [facility] (LIORESAL) 9-10 [id number] by mouth 3 [facility] 10 MG 15:01: 3D (three) Medical tablet 57 times Center daily. sertraline 2020-0 Yes 25mg QD Take [address] (ZOLOFT) 25 9-10 by mouth Luke s MG tablet 15:01: daily. Medica l 57 [place] hydrocortis 2020-0 202- No 25mg Place 25 B aylor one 01-08 09-21 mg Box (ANUSOL-) 00:00: 00:00 rectally o f 25 MG 00 :00 at Medicin suppository bedtime. e hydrocortis 2020-0 2020- No 25mg Place 25 B [facility] one 01-08 09-21 mg Box (ANUSOL-) 00:00: 00:00 rectally o f 25 MG 00 :00 at Medicin suppository bedtime. e Sertraline 2020-0 Yes Take by Iseral adiel HCl (ZOLOFT 8-21 mouth. l OR) 21:16: [place] 37 clonazePAM 2020-0 Yes Take 1 mg [...] Memoria HCl (ZANTAC 8-21 l OR) 21:16: Markus 37 cefUROXime 2020-0 Yes cefuroxime M emoria (CEFTIN) 8-21 axetil 500 l 500 MG 21:16: mg tablet Sony n tablet 37 escitalopra 2020-0 Yes Take 20 mg Memoria m (LEXAPRO) 8-21 by mouth l 20 MG 21:16: daily. Markus tablet 37 fluconazole 2020-0 Yes Take 150 Me moria (DIFLUCAN) 8-21 mg by l 150 MG 21:16: mouth Markus tablet 37 daily. loperamide 2020-0 Yes Take 2 mg Me moria (IMMODIUM) 8-21 by mouth l 2 MG 21:16: daily. [place] capsule 37 Mesalamine 2020-0 Yes Take 1.2 Mem oria 1.2 g TBEC 8-21 mg by l 21:16: mouth [place] 37 daily. montelukast 2019-0 Yes Take 10 mg Memoria (SINGULAIR) 8-21 by mouth l 10 MG 21:16: daily. [place] tablet 37 quetiapine 2019-0 Yes Take 50 mg M emoria (SEROQUEL) 8-21 by mouth l 50 MG 21:16: daily. [place] tablet 37 tramadol 2019-0 2020- No 50mg Take 50 mg [facility] (ULTRAM) 50 8-18 by mouth Col lege MG tablet 19:30: 00:00 daily. of 33 :00 Medicin e sucralfate 2019-0 2020- No 1g Take 1 g [facility] (CARAFATE) 12-16-18 by mouth Ronny ege 1 g tablet 19:30: 00:00 daily. of 30 :00 Medicin e predniSONE 2019-0 2020- No 5mg Take 5 mg [facility] (DELTASONE) 12-16 08-18 by mouth Col lege 5 MG tablet 19:30: 00:00 daily. of 24 :00 Medicin e metronidazo 2019-0 2020- No 500mg Take 500 [facility] le (FLAGYL) 8 08-18 mg by Colleg e 500 MG 19:30: 00:00 mouth of tablet 21 :00 daily. Medicin e metoclopram 2019-0 2020- No 10mg Take 10 mg Kev sam -16 12-18 by mouth College (REGLAN) 10 19:30: 00:00 every 6 of MG tablet 21 :00 hours. Medicin e hydrocortis 2019-0 2020- No 20mg Take 20 mg [facility] one -16 12-18 by mouth College (CORTEF) 20 19:30: 00:00 daily. of MG tablet 15 :00 Medicin e diazepam 2019-0 2019- No 10mg Take 10 mg [facility] (VALIUM) 10 12-16-18 by mouth Col lege mg tablet 19:30: 00:00 daily. of 12 :00 Medicin e celecoxib 2019-0 2020- No 100mg Take 100 [facility] (CELEBREX) 12-16-18 mg by Box 100 MG 19:30: 00:00 mouth of capsule 09 :00 daily. Medicin e alprazolam 2019-0 2020- No alprazolam Kev (XANAX) 1 12-16- 1 mg College MG tablet 19:30: 00:00 tablet T1T o f 03 :00 PO QD Medicin e Sertraline 2019-0 Yes Take by Bayl or HCl (ZOLOFT 18 mouth. Colleg e OR) 18:53: of 39 Medicin e clonazePAM 2020-0 Yes 1mg Take 1 mg [facility] (KLONOPIN 18 by mouth 3 Ronny ege OR) 18:53: times of 39 daily. Medicin e busPIRone 2020-0 Yes 10mg Take 10 mg [facility] (BUSPAR) 10 18 by mouth 3 Co [facility] MG tablet 18:53: times of 39 daily. Medicin e estradiol 2020-0 Yes estradiol [place] [facility] (ESTRACE) 1 8-18 1 mg [facility] MG tablet 18:53: tablet of 39 Medicin e raNITIdine 2020-0 Yes Kev HCl (ZANTAC 12-16 College OR) 18:53: of 39 Medicin e cefUROXime 2020-0 Yes cefuroxime B ayl[facility] (CEFTIN) 18 axetil 500 Colle ge 500 MG 18:53: mg tablet of tablet 39 Medicin e escitalopra 2020-0 Yes 20mg Take 20 mg Kev m (LEXAPRO) 818 by mouth Ronny ege 20 MG 18:53: [...] montelukast 2020-0 Yes 10mg Take 10 mg [facility] (SINGULAIR) 8-18 by mouth Ronny [...] 150 B aylor (DIFLUCAN) 8-18 mg by Box 150 MG 13:53: mouth of tablet 39 daily. Medicin e alprazolam 2020-0 No alprazolam M emoria (XANAX) 1 8-18 1 mg l MG tablet 00:00: tablet T1T He rmann 00 PO QD celecoxib 2019-0 No Take 100 Isreal adiel (CELEBREX) 8-18 mg by l 100 MG 00:00: mouth Markus capsule 00 daily. diazepam 2019-0 No Take 10 mg [facility] (VALIUM) 10 8-18 by mouth l mg tablet 00:00: daily. Sony n 00 metronidazo 2020-0 No Take 500 Me moria le (FLAGYL) 8-18 mg by l 500 MG 00:00: mouth Markus tablet 00 daily. metoclopram 2019-0 No Take 10 mg Memoria sam 8-18 by mouth l (REGLAN) 10 00:00: every 6 Her [place] MG tablet 00 hours. predniSONE 2019- No Take 5 mg Me moria (DELTASONE) 8-18 by mouth l 5 MG tablet 00:00: daily. Herm chelsey 00 hydrocortis 2019-0 No Take 20 mg Memoria one 8-18 by mouth l (CORTEF) 20 00:00: daily. Herm chelsey MG tablet 00 sucralfate No Take 1 g [facility] (CARAFATE) 8-18 by mouth l 1 g tablet 00:00: daily. Prachi nn 00 tramadol 2019-0 No Take 50 mg Mem oria (ULTRAM) [...] e tablet Diarrhea. Na 2020- No [SUPREP] [facility] Sulfate-K 8-14 - Take as Colleg e Sulfate-Mg 00:00: 00:00 directed. o f Sulf 00 :00 Medicin (SUPREP e BOWEL PREP KIT) 17.5-3.13-1 .6 GM/177ML SOLN Na 2020- No [SUPREP] [facility] Sulfate-K 8-14 01-19 Take as [...] 8-12 by mouth 3 l 18:01: (three) [place] 52 times daily. metroNIDAZO 2020-0 Yes Take 500 Me moria LE (FLAGYL) 8-12 mg by l 500 mg 18:01: mouth 2 [place] tablet 52 (two) times daily. multivitami 2020-0 Yes Take 1 Isreal adiel n, 8-12 tablet by l tx-minerals 18:01: mouth Prachi nn (COMPLETE 52 daily. MULTIVITAMI N) tablet ranitidine 2019-0 Yes Memoria 150 mg 8-12 l capsule 18:01: sertraline 2019-0 Yes Take by Isreal adiel HCl 8-12 mouth. l (SERTRALINE 18:01: Sony n ORAL) 52 baclofen 10 2019-0 Yes baclofen Me moria mg tablet 8-12 10 mg l 18:01: tablet busPIRone 2019-0 Yes Take 10 mg Me moria 10 mg 8-12 by mouth. l tablet 18:01: hydroCHLORO 2020-0 Yes hydrochlor Memoria thiazide 25 8-12 othiazide l mg tablet 18:01: 25 mg tablet hydrocortis 2019-0 Yes Take 20 mg Memoria one 20 mg 8-12 by mouth. l tablet 18:01: montelukast 2019-0 Yes montelukas Memoria 10 mg 8-12 t 10 mg l tablet 18:01: tablet QUEtiapine 2020-0 Yes quetiapine M emoria 50 mg 8-12 50 mg l tablet 18:01: tablet 52 valACYclovi 2020-0 Yes valacyclov Methodi r [...] 7-09 tablets by l (MEDROL, 00:00: mouth [place] CHERISE,) 4 mg 00 SEE-INSTRU tablets CTIONS. follow package directions terbinafine 2019-0 Yes TK 1 T PO M emoria HCl 250 mg 6-24 QD l tablet 00:00: [place] 00 STELARA 90 2019-0 Yes INJECT Memor ia MG/ML 3-27 90MG l injection 00:00: SUBCUTANEO He rmann 00 USLY EVERY 28 DAYS STELARA 90 2020-0 Yes [id number] INJECT [facility] MG/ML 3-27 90MG College [...] mg by l 500 MG 18:27: mouth [place] tablet 32 daily. metoclopram 2019-0 Yes Take [...] 32 celecoxib 2020-0 Yes 100mg Take 100 [place] [facility] (CELEBREX) 3-12 mg by Box 100 MG 16:41: mouth of capsule 28 daily. Medicin e predniSONE 2020-0 Yes 5mg Take 5 mg [facility] (DELTASONE) 3-12 by mouth Ronny ege 5 MG tablet 16:41: daily. of 28 Medicin e hydrocortis 2020-0 Yes 20mg Take 20 mg [facility] one 3-12 by mouth College (CORTEF) 20 16:41: daily. of MG tablet 28 Medicin e quetiapine 2020-0 Yes 50mg Take 50 mg [facility] (SEROQUEL) 3-12 by mouth Colle ge 50 MG 16:41: daily. of tablet 28 Medicin e sucralfate 2020-0 Yes 1g Take 1 g [place] [facility] (CARAFATE) 3-12 by mouth Colle ge 1 g tablet 16:41: daily. of 28 Medicin e tramadol 2020-0 Yes 50mg Take 50 mg [place] [facility] (ULTRAM) 50 3-12 by mouth Ronny ege MG tablet 16:41: daily. of 28 Medicin e escitalopra 2020-0 Yes 20mg Take 20 mg Kev m (LEXAPRO) 3-12 by mouth Ronny ege 20 MG 16:29: daily. of tablet 07 Medicin e diazepam 2020-0 Yes 10mg Take 10 mg [place] [facility] (VALIUM) 10 3-12 by mouth Ronny ege mg tablet 16:29: daily. of 07 Medicin e fluconazole 2020-0 Yes 150mg Take 150 [facility] (DIFLUCAN) 3-12 mg by Box 150 MG 16:29: mouth of tablet 07 [...] B a[facility]or le (FLAGYL) 3-12 mg by Box 500 MG 16:29: mouth of tablet 07 daily. Medicin e metoclopram 2020-0 Yes 10mg Take 10 mg Kev sam 3-12 by mouth College (REGLAN) 10 16:29: every 6 of MG tablet 07 hours. Medicin e montelukast 2020-0 Yes 10mg Take 10 mg Kev (SINGULAIR) 3-12 by mouth Ronny ege 10 MG 16:29: daily. of tablet 07 Medicin e estradiol 2020-0 Yes estradiol [place] (ESTRACE) 1 3-12 1 mg College [...] Medicin e Sertraline 2020-0 Yes Take by [facility] HCl (ZOLOFT 3-12 mouth. Colleg e OR) [...] by mouth every day pantoprazol 2020-0 Yes [id number] 40mg Take 1 Tab [facility] e 3-02 by mouth 2 College (PROTONIX) 00:00: times of 40 MG 00 daily Medicin tablet (before e meals). 1 tablet by mouth every day pantoprazol 2020-0 Yes [id number] 40mg Take 1 Tab [facility] e 3-02 by mouth 2 [...] OR 2-19 by mouth l 17:27: daily. [place] Sertraline 2019-0 Yes Take by [facility] HCl (ZOLOFT 2-19 mouth. Colleg e OR) [...] Medicin e Sertraline 2020-0 Yes Take by [facility] or HCl (ZOLOFT 2-19 mouth. Colleg e OR) [...] 2020-0 2020- No 300mg 300 mg as [facility] en-codeine 2-12 02-12 needed. Colle ge (TYLENOL/CO 14:22: 00:00 dominique MARTINEZ #3) 23 :00 Medicin 300-30 MG e per tablet Sertraline 2020-0 Yes Take by [facility] or HCl (ZOLOFT 2-12 mouth. Colleg e OR) 14:21: of 59 Medicin e PANTOPRAZOL 2020-0 Yes 40mg Take 40 mg [facility] E SODIUM OR 2-12 by mouth Ronny [...] a 300-60 mg day. per tablet gabapentin No TAKE Method i (NEURONTIN) 12-21 ONE(1) st 300 mg 00:00: 00:00 CAPSULE BY [facility] capsule 00 :00 MOUTH l TWICE DAILY acetaminoph 2021- No 1{tbl} Q.5D Take 1 M ethodi en-codeine 12-[address] (TYLENOL 00:00: 00:00 mouth 2 Hospi ta WITH 00 :00 (two) l CODEINE #4) times a 300-60 mg day. per tablet gabapentin TAKE Method i (NEURONTIN) 12-21 ONE(1) st 300 mg 00:00: 00:00 CAPSULE BY [facility] capsule 00 :00 MOUTH l TWICE DAILY acetaminoph No 1{tbl} Q.5D Take 1 M ethodi en-codeine 12-[address] (TYLENOL 00:00: 00:00 mouth 2 Hospi ta WITH 00 :00 (two) l CODEINE #4) times a 300-60 mg day. per tablet gabapentin TAKE Method i (NEURONTIN) 12-21 ONE(1) st 300 mg 00:00: 00:00 CAPSULE BY [facility] capsule 00 :00 MOUTH l TWICE DAILY acetaminoph 1{tbl} Q.5D Take 1 M ethodi en-codeine 12-[address] (TYLENOL 00:00: 00:00 mouth 2 Hospi ta WITH 00 :00 (two) l CODEINE #4) times a 300-60 mg day. per tablet gabapentin TAKE Method i (NEURONTIN) 12-21 ONE(1) st 300 mg 00:00: 00:00 CAPSULE BY [facility] capsule 00 :00 MOUTH l TWICE DAILY acetaminoph 2019- 1{tbl} Take 1 Tab [facility] en-codeine 12-21 08-18 by mouth. Col lege (TYLENOL 00:00: 00:00 of #4) 300-60 00 :00 Medicin MG per e tablet acetaminoph Yes 300 mg as M emoria en-codeine 12-20 needed. l (TYLENOL/CO 14:16: Sony MARTINEZ #3) 10 300-30 MG per tablet busPIRone Yes 10mg Take 10 mg [facility] (BUSPAR) 10 8-20 by mouth 3 Co llege MG tablet 15:05: times of 52 daily. Medicin e Sertraline Yes Take by [facility] or HCl (ZOLOFT 8-20 mouth. Colleg e OR) 15:03: of 59 Medicin e PANTOPRAZOL 2019-0 Yes 40mg Take 40 mg [facility] E SODIUM OR 8-20 by mouth Ronny ege 15:03: daily. of 59 Medicin e clonazePAM 2018-0 Yes 1mg Take 1 mg [facility] (KLONOPIN 8-20 by mouth 3 Ronny ege OR) 15:03: times of 59 daily. Medicin e acetaminoph 2019-0 Yes 300mg 300 mg as [facility] en-codeine 8-20 needed. Colleg e (TYLENOL/CO 15:03: of DEINE #3) 59 Medicin 300-30 MG e per tablet Cholestyram No Take 4 g Me moria ine 4 8-20 by mouth 3 l GM/DOSE 00:00: times [place] POWD 00 daily. dicyclomine Yes Take 1 Cap Memoria (BENTYL) 10 8-20 by mouth 4 l MG capsule 00:00: times Sony n 00 daily (before meals and nightly). 1 by mouth four times a day Ferrous Yes Take 325 Memori a Sulfate 8-20 mg by l (IRON) 325 00:00: mouth two He rmann (65 Fe) MG 00 times TABS daily. Cholecalcif Yes Take 2,000 Memoria estephania 8-20 Units [...] Take 2,000 Methodi estephania, 8-20 Units by vitamin D3, 00:00: mouth. [facility] (VITAMIN 00 l D3) 2,000 unit capsule capsule dicyclomine 2019-0 Yes [id number] 10mg Take 1 Cap Kev (BENTYL) 10 8-20 by mouth 4 Co llege MG capsule 00:00: times of 00 daily Medicin (before e meals and nightly). 1 by mouth four times a day Ferrous 2019-0 Yes [id number] 325mg Take 325 [facility] Sulfate 8-20 mg by Box (IRON) 325 00:00: mouth two of (65 Fe) MG 00 times Medicin TABS daily. e Cholecalcif 2019-0 Yes [id number] 2000U Take 2,000 [facility] estephania 8-20 Units by Box (VITAMIN D) 00:00: mouth of 2000 units 00 daily. Medicin CAPS e Cholestyram 2019-0 Yes [id number] 4g Take 4 g [facility] ine 4 8-20 by mouth 3 College GM/DOSE 00:00: times of POWD 00 daily. Medicin e dicyclomine 2019-0 Yes [id number] 10mg Take 1 Cap Kev (BENTYL) 10 8-20 by mouth 4 Co llege MG capsule 00:00: times of 00 daily Medicin (before e meals and nightly). 1 by mouth four times a day Ferrous 2019-0 Yes [id number] 325mg Take 325 [facility] Sulfate 8-20 mg by Box (IRON) 325 00:00: mouth two of (65 Fe) MG 00 times Medicin TABS daily. e Cholecalcif 2019-0 Yes [id number] 2000U Take 2,000 [facility] estephania 8-20 Units by Box (VITAMIN D) 00:00: mouth of 2000 units 00 daily. Medicin CAPS e Cholestyram 2019-0 Yes [id number] 4g Take 4 g Kev ine 4 8-20 by mouth 3 College GM/DOSE 00:00: times of POWD 00 daily. Medicin e dicyclomine 2019-0 Yes [id number] 10mg Take 1 Cap Kev (BENTYL) 10 8-20 by mouth 4 Co llege MG capsule 00:00: times of 00 daily Medicin (before e meals and nightly). 1 by mouth four times a day Ferrous 2019-0 Yes [id number] 325mg Take 325 [facility] Sulfate 8-20 mg by College (IRON) 325 00:00: mouth two of (65 Fe) MG 00 times Medicin TABS daily. e Cholecalcif 2019-0 Yes [id number] 2000U Take 2,000 Kev estephania 8-20 Units by College (VITAMIN D) 00:00: mouth of 2000 units 00 daily. Medicin CAPS e Cholestyram 2019-0 Yes [id number] 4g Take 4 g Kev ine 4 8-20 by mouth 3 College GM/DOSE 00:00: times of POWD 00 daily. Medicin e dicyclomine 2019-0 Yes [id number] 10mg Take 1 Cap Kev (BENTYL) 10 8-20 by mouth 4 Co llege MG capsule 00:00: times of 00 daily Medicin (before e meals and nightly). 1 by mouth four times a day Ferrous 2019-0 Yes [id number] 325mg Take 325 [facility] Sulfate 8-20 mg by Box (IRON) 325 00:00: mouth two of (65 Fe) MG 00 times Medicin TABS daily. e Cholecalcif 2019-0 Yes [id number] 2000U Take 2,000 [facility] estephania 8-20 Units by Box (VITAMIN D) 00:00: mouth of 2000 units 00 daily. Medicin CAPS e Cholestyram 2018-0 Yes [id number] 4g Take 4 g [facility] ine 4 8-20 by mouth 3 Box GM/DOSE 00:00: times of POWD 00 daily. Medicin e dicyclomine 2019-0 Yes [id number] 10mg Take 1 Cap Kev (BENTYL) 10 8-20 by mouth 4 Co llege MG capsule 00:00: times of 00 daily Medicin (before e meals and nightly). 1 by mouth four times a day Ferrous 2019-0 Yes [id number] 325mg Take 325 [facility] Sulfate 8-20 mg by College (IRON) 325 00:00: mouth two of (65 Fe) MG 00 times Medicin TABS daily. e Cholecalcif 2019-0 Yes [id number] 2000U Take 2,000 [facility] estephania 8-20 Units by Box (VITAMIN D) 00:00: mouth of 2000 units 00 daily. Medicin CAPS e dicyclomine 2019-0 Yes [id number] 10mg Take 1 Cap Kev (BENTYL) 10 8-20 by mouth 4 Co llege MG capsule 00:00: times of 00 daily Medicin (before e meals and nightly). 1 by mouth four times a day Ferrous 2019-0 Yes [id number] 325mg Take 325 [facility] Sulfate 8-20 mg by College (IRON) 325 00:00: mouth two of (65 Fe) MG 00 times Medicin TABS daily. e Cholecalcif 2019- Yes [id number] 2000U Take 2,000 Kev estephania 8-20 Units by College (VITAMIN D) 00:00: mouth of 2000 units 00 daily. Medicin CAPS e Ferrous 2018- Yes [id number] 325mg Take 325 [facility] Sulfate 8-20 mg by Box (IRON) 325 00:00: mouth two of (65 Fe) MG 00 times Medicin TABS daily. e Cholecalcif 2018- Yes [id number] 2000U Take 2,000 [facility] estephania 8-20 Units by Box (VITAMIN D) 00:00: mouth of 2000 units 00 daily. Medicin CAPS e Ferrous 2018-0 Yes [id number] 325mg Take 325 [facility] Sulfate 8-20 mg by Box (IRON) 325 00:00: mouth two of (65 Fe) MG 00 times Medicin TABS daily. e Cholecalcif 2018-0 Yes [id number] 2000U Take 2,000 Kev estephania 8-20 Units by Box (VITAMIN D) 00:00: mouth of 2000 units 00 daily. Medicin CAPS e Ferrous 2018- Yes [id number] 325mg Take 325 [facility] Sulfate 8-20 mg by Box (IRON) 325 00:00: mouth two of (65 Fe) MG 00 times Medicin TABS daily. e Cholecalcif 2018-0 Yes [id number] 2000U Take 2,000 Kev estephania 8-20 Units by Box (VITAMIN D) 00:00: mouth of 2000 units 00 daily. Medicin CAPS e Cholestyram 2018- Yes [id number] 4g Take 4 g Kev ine 4 8-20 by mouth 3 College GM/DOSE 00:00: times of POWD 00 daily. Medicin e dicyclomine 2018-2020- No [id number] 10mg Take 1 Cap Kev (BENTYL) 10 8-20 09-21 by mouth 4 C ollege MG capsule 00:00: 00:00 times of 00 :00 daily Medicin (before e meals and nightly). 1 by mouth four times a day dicyclomine 2020- No [id number] 10mg Take 1 Cap Kev (BENTYL) 10 12-18 by mouth 4 C ollege MG capsule 00:00: 00:00 times of 00 :00 daily Medicin (before e meals and nightly). 1 by mouth four times a day Cholestyram 2019- No [id number] 4g Take 4 g Kev ine 4 12-18 by mouth 3 College GM/DOSE 00:00: 00:00 times of POWD 00 :00 daily. Medicin e escitalopra Yes escitalopr Memoria m (LEXAPRO) 8-08 am 10 mg l 10 MG 00:00: tablet [place] tablet 00 escitalopra Yes escitalopr Memoria m oxalate 8-08 am 10 mg l 10 mg 00:00: tablet Markus tablet 00 escitalopra Yes TK 1 T [...] Hospita tablet 00 l escitalopra Yes escitalopr [facility] m (LEXAPRO) 8-08 am 10 mg Ronny ege 10 MG 00:00: tablet of tablet 00 Medicin e escitalopra Yes escitalopr Kev m (LEXAPRO) 8-08 am 10 mg Ronny ege 10 MG 00:00: tablet of tablet 00 Medicin e escitalopra Yes escitalopr [facility] m (LEXAPRO) 8-08 am 10 mg Ronny ege 10 MG 00:00: tablet of tablet 00 Medicin e escitalopra Yes escitalopr Kev m (LEXAPRO) 8-08 am 10 mg Ronny ege 10 MG 00:00: tablet of tablet 00 Medicin e escitalopra Yes escitalopr [facility] m (LEXAPRO) 8-08 am 10 mg Ronny ege 10 MG 00:00: tablet of tablet 00 Medicin e hydrocortis Yes Take 1 Tab Memoria one 7-30 by mouth l (CORTEF) 10 00:00: two times H ermann MG tablet 00 daily for 90 days. hydrocortis 2018- No 10mg Take 1 Tab [facility] one 7-30 10-29 by mouth College (CORTEF) 10 00:00: 04:59 two times of MG tablet 00 :00 daily for Medic in 90 days. e valACYclovi Yes Memori a r 1 gram -19 l tablet 00:00: [place] 00 hydrocortis 2021- No U REC BID [...] ia e 6-18 DAILY l 00:00: Prednisone 2018- Yes Cherelle TWICE Mem oria 6-18 Mariee [...] repeat dose in 7 weeks Clotrimazol Yes [id number] 1{appli Place 1 Kev e 5-07 cation} applicatio Colleg e (CLOTRIMAZO 00:00: n of ) 1 % 00 vaginally Medic in CREA daily. e pantoprazol Yes [id number] 40mg Take 1 Tab Kev e 5-07 by mouth 2 College (PROTONIX) 00:00: times of 40 MG 00 daily Medicin tablet (before e meals). 1 tablet by mouth every day Ustekinumab Yes 90mg Inject 90 [facility] (STELARA) 5-07 mg into College 90 MG/ML 00:00: the skin of injection 00 every 28 Medici n days. e Clotrimazol Yes [id number] 1{appli Place 1 [facility] e 5-07 cation} applicatio Colleg e (CLOTRIMAZO 00:00: n of ) 1 % 00 vaginally Medic in CREA daily. e pantoprazol Yes [id number] 40mg Take 1 Tab Kev e 5-07 by mouth 2 College (PROTONIX) 00:00: times of 40 MG 00 daily Medicin tablet (before e meals). 1 tablet by mouth every day Ustekinumab Yes 90mg Inject 90 [facility] (STELARA) 5-07 mg into College 90 MG/ML 00:00: the skin of injection 00 every 28 Medici n days. e Clotrimazol Yes [id number] 1{appli Place 1 Kev e 5-07 cation} applicatio Colleg e (CLOTRIMAZO 00:00: n of ) 1 % 00 vaginally Medic in CREA daily. e Ustekinumab Yes 90mg Inject 90 [facility] (STELARA) 5-07 mg into College 90 MG/ML 00:00: the skin of injection 00 every 28 Medici n days. e Clotrimazol Yes [id number] 1{appli Place 1 [facility] e 5-07 cation} applicatio Colleg e (CLOTRIMAZO 00:00: n of ) 1 % 00 vaginally Medic in CREA daily. e Ustekinumab Yes 90mg Inject 90 [facility] (STELARA) 5-07 mg into College 90 MG/ML 00:00: the skin of injection 00 every 28 Medici n days. e Clotrimazol Yes [id number] 1{appli Place 1 [facility] e 5-07 cation} applicatio Colleg e (CLOTRIMAZO 00:00: n of ) 1 % 00 vaginally Medic in CREA daily. e Clotrimazol Yes [id number] 1{appli Place 1 [facility] e 5-07 cation} applicatio Colleg e (CLOTRIMAZO 00:00: n of ) 1 % 00 vaginally Medic in CREA daily. e Clotrimazol Yes [id number] 1{appli Place 1 Kev e 5-07 cation} applicatio Colleg e (CLOTRIMAZO 00:00: n of ) 1 % 00 vaginally Medic in CREA daily. e Clotrimazol Yes [id number] 1{appli Place 1 [facility] e 5-07 cation} applicatio Colleg e (CLOTRIMAZO 00:00: n of ) 1 % 00 vaginally Medic in CREA daily. e fluconazole Yes [id number] 150mg Take 1 Tab Kev (DIFLUCAN) 5-07 by mouth Colle ge 150 MG 00:00: daily. - of tablet 00 then Medicin repeat e dose in 7 weeks Clotrimazol Yes [id number] 1{appli Place 1 [facility] e 5-07 cation} applicatio Colleg e (CLOTRIMAZO 00:00: n of ) 1 % 00 vaginally Medic in CREA daily. e pantoprazol Yes [id number] 40mg Take 1 Tab [facility] e 5-07 by mouth 2 [...] injection 00 :00 l pantoprazol 2019- No [id number] 40mg Take 1 Tab Kev e 09-04 03-02 by mouth 2 College (PROTONIX) 00:00: 00:00 times of 40 MG 00 :00 daily Medicin tablet (before e meals). 1 tablet by mouth every day fluconazole 2020- No [id number] 150mg Take 1 Tab Kev (DIFLUCAN) 09-04 [...] e Oxycodone 2020- No TK ONE T [place] [facility] HCl 10 MG 5-01 02-19 PO Q 4 H Colle ge TABS 00:00: 00:00 PRN P of 00 :00 Medicin e Oxycodone 2020- No TK ONE T [place] [facility] HCl 10 MG 08-29 PO Q 4 H Colle ge TABS 00:00: 00:00 PRN P of 00 :00 Medicin e gabapentin 2018- Yes 300mg Take [...] Sony n capsule 00 14 DAYS gabapentin 2018-0 Yes gabapentin M emoria 300 mg 4-25 300 mg l capsule 00:00: capsule [place] 00 clindamycin 0 2020- No TK ONE C [facility] (CLEOCIN) 4-25 02-12 PO Q 6 College 300 MG 00:00: 00:00 HOURS FOR of capsule 00 :00 14 DAYS Medicin e Ustekinumab 2017-05 Yes Stelara 90 Memoria (STELARA) 2-12 mg/mL l 90 mg/mL SC 00:00: subcutaneo Markus injection 00 us syringe STELARA 90 2017-05 [...] t mg/mL Syrg 2-12 [facility] USLY 8 Center WEEKS AFTER [...] Chloride 0-21 2,000 l 0.9% 20:51: ml/hr, [place] (Bolus) IV 00 Infuse Over: 30 minutes, [...] tab, PO, l tablet 15:02: Daily, X [place] 30 day, # 60 tab, 0 Refill(s) [...] cap, PO, l Enteric 14:34: Q12H, # [place] Coated 00 180 cap, 0 Capsule Refill(s) Alprazolam Yes 2 mg = 1 Mem oria 2 MG Oral 6-14 tab, PO, l Tablet 14:34: QID, PRN [place] [Xanax] 00 Anxiety, X 5 day, # 20 tab, 0 Refill(s) Flagyl No Notes: Memoria 6-13 (Same as: l 16:00: Flagyl) [place] Take with food/ avoid alcohol mesalamine No Notes: Memor ia 6-13 (Same as: l 14:31: Delzicol) Markus mesalamine No 2.4 gm, 2 Me moria 1200 MG 6-13 tab, l Enteric 14:00: Route: PO, Herm chelsey Coated 00 Drug form: Tablet ECTAB, Daily, Dosing Weight 51.392, kg, Start date: 10/11/16 9:00:00 CDT, Duration: 30 day, Stop date: 11/09/16 9:00:00 CDT remove No Notes: Memoria patch 6-13 Remove old l 10:00: patch [place] 00 before applicatio n of new patch. WASTE: F/P - P Waste Black; E - P Waste Black Alprazolam No Notes: Memor ia 0.25 MG 6-12 With food l Oral Tablet 14:51: or milk Her hogan [Xanax] 00 (Same as: Xanax) pantoprazol No Notes: For Memoria e 6-12 IV push l 14:30: reconstitu Amrkus te with 10 ml 0.9% sodium chloride [...] Memoria 6-12 (Same as: l 08:00: Flagyl) Avoid alcohol. pneumococca No 0.5 mL, Mem [...] / 6-12 (Same as: l Hydrocodone 07:06: [place] Prachi nn Bitartrate 00 325/5) Do 5 MG Oral not exceed Tablet 4gm/day of acetaminop hen. Morphine No Notes: Memoria 6-12 (Same l 07:06: as:MORPhin e Sulfate) Ondansetron No Notes: Isreal adiel 6-12 (Same as: l 07:06: Zofran) MEDICATION WASTE Product Size: 4 mg Product Wasted: ___ mg Sodium No 1,000 mL, Memori a Chloride -12 Rate: 125 l 0.154 07:06: ml/hr, [place] MEQ/ML 00 Infuse Injectable over: 8 Solution hr, Route: IV, Dosing Weight 52.727 kg, Total Volume: 1,000, Start date: 10/10/16 2:06:00 CDT, Duration: 30 day, Stop date: 11/09/16 2:05:00 CDT Hydromorpho 2017-0 No 1 mg, 1 Mem oria ne [...] CDT, Stop date: 10/09/16 22:54:00 CDT Sodium 2016- No 1,000 mL, Memori a Chloride 12 1000 l 0.154 03:54: ml/hr, Markus MEQ/ML [...] Chloride 0-12 1000 l 0.154 18:36: ml/hr, [place] MEQ/ML 00 Infuse Injectable Over: 1 Solution hr, Route: IV, 1,000, Drug form: INJ, ONCE, Priority: STAT, Dosing Weight 59.091 kg, Start date: 02/10/16 13:36:00 CDT, Duration: 1 doses or times, Stop date: 02/10/16 13:36:00 CDT Nitrofurant Yes 100 mg = 1 Memoria oin 100 MG 4-15 cap, PO, l Oral 16:05: BID, X 7 [place] Capsule 00 day, # 14 [Macrobid] cap, [...] days Memor ia 4-15 l 15:46: MEDICATION [place] 00 WASTE Product Size: 30 mg Product [...] PO, l 1.33 MEQ/ML 13:12: Drug form: [place] Oral 00 LIQ, ONCE, Solution Dosing Weight 47.727, kg, Priority: STAT, Start date: 08/13/14 8:12:00, Stop date: 08/13/14 8:12:00 Sodium No 1,000 mL, Memori a Chloride 08-13 1,000 l 0.154 12:04: ml/hr, [place] MEQ/ML 00 Infuse Injectable Over: 1 Solution hr, Route: IV, 1,000, Drug form: INJ, ONCE, Priority: STAT, Dosing Weight 47.727 kg, Start date: 08/13/14 7:04:00, Duration: 1 doses or times, Stop date: 08/13/14 7:04:00 Saline No Notes: Memoria Flush 0.9% 08-13 Same as: l 12:03: BD [place] 00 Posiflush Sterile tramadol 2013-05 Yes 50 mg = 1 Isreal adiel hydrochlori 09 tab, PO, l de 50 MG 18:14: Q4H, Pain, Her hogan Oral Tablet 00 # 30 tab, 0 Refill(s) Nitrofurant 2013-05 Yes 100 mg = 1 Memoria oin 100 MG 05-09 cap, PO, l Oral 16:48: BID, # 14 [place] Capsule 00 cap, 0 [Macrobid] Refill(s) Ondansetron [...] Route: PO, l Hydrocodone 20:51: Drug Form: [place] Bitartrate 00 TAB, 5 MG Oral Dosing Tablet Weight [[place] 50.909, 5/325] kg, ONCE, STAT, Start date: 01/14/14 15:51:00, Stop date: 01/14/14 15:51:00 Potassium No Notes: Memori a Chloride 20 01-14 (Same as: l MEQ 16:33: K-Dur 20) [place] Extended "Do Not Release Crush" Tablet With food and full glass of water Macrobid No Notes: Not Mem oria 16 Recommende l 16:20: d for [place] 00 patients with CrCl< 50 ml/min With food (Same as:Macroda ntin) Acetaminoph No 2 tab, Isreal adiel en 325 MG / 01-14 Route: PO, l Hydrocodone 13:20: Dosing Herm chelsey Bitartrate 00 Weight 5 MG Oral 50.909, Tablet kg, ONCE, [[place] Start 5/325] date: 01/14/14 8:20:00, Stop date: 01/14/14 8:20:00 Acetaminoph Yes 1 tab, PO, Memoria en 325 MG / 01-14 Q4-6H, l Hydrocodone 05:59: Pain, # 12 Markus Bitartrate 00 tab, 0 5 MG Oral Refill(s) Tablet [[place] 5/325] Hydromorpho No Notes: Isreal adiel ne 16 (Same as: l 05:48: Dilaudid) Potassium No Notes: Memori a Chloride 20 01-14 (Same as: l MEQ 05:45: K-Dur 20) Markus Extended "Do Not Release Crush" Tablet With food and full glass of water Ondansetron No Notes: Isreal adiel 9-16 (Same as: l 03:12: Zofran) Sodium No 1,000 mL, Memori a Chloride 01-14 1000 l 0.154 03:12: ml/hr, [place] MEQ/ML 00 Infuse Injectable Over: 1 Solution hr, Route: IV, 1,000, Drug form: INJ, ONCE, Priority: STAT, Dosing Weight 54.545 kg, Start date: 01/13/14 22:12:00, Duration: 1 doses or times, Stop date: 01/13/14 22:12:00 Saline No Notes: Memoria Flush 0.9% 01-14 (Same as: l 03:12: BD [place] 00 Posiflush) Hydromorpho No Notes: Isreal adiel [...] emoria 500 MG 0-04 q hs l [id number] 00:00: DILAUDID/CL 2012-05 Yes per pain Me [...] emoria 500 MG 0-04 q hs l [id number] 00:00: ACYCLOVIR 2012-05 Yes 1 3x daily [...] Medical TABLET BY TABLET BY TAKE 1 Rfancesco up MOUTH TWICE MOUTH TWICE TABLET BY [...] Chantix [place] r Starting Starting Starting da Box Box Box [facility] 0.5 mg 0.5 mg [...] al auto-inject auto-inject auto-inj Health or or tor Outreac h Program ertapenem 1 ertapenem 1 [...] Immunizations Ordered Filled Immunization Date Status Comments Sour e Immunization Name Name Influenza vaccine, Influenza vaccine, 2021-04-29 Completed [place] quadrivalent, quadrivalent, 11:22:00 [facility] adjuvanted adjuvanted Moderna SARS-CoV-2 2020-12-28 Completed [facility] Vaccination 00:00:00 of Medicine Moderna SARS-CoV-2 2020-12-28 Completed [facility] Vaccination 00:00:00 of Medicine Moderna SARS-CoV-2 2020-12-28 Completed [facility] Vaccination 00:00:00 of Medicine COVID-19, mRNA, COVID-19, mRNA, 2020-12-25 Completed [place] [facility] LNP-S, PF, 100 LNP-S, PF, 100 00:00:00 [facility] mcg/0.5 mL dose mcg/0.5 mL dose (Moderna) (Moderna) influenza, influenza, 2020-02-12 Completed [facility] injectable, injectable, 00:00:00 [facility] p quadrivalent quadrivalent influenza, influenza, 2019-05-08 Completed [facility] injectable, injectable, 14:33:00 [facility] quadrivalent, quadrivalent, preservative free preservative free pneumococcal 2016-10-10 Completed [facility] 23-valent vaccine 22:14:00 Markus Hx influenza 2013-02-01 Completed [facility] vaccine-unspecified 18:41:05 Prachi nn <sup>1</sup> influenza 2013-02-01 Completed [facility] immunization (Flu 18:41:05 [place] Vax) has been administered influenza virus 2013-02-01 Completed [facility] vaccine, 05:00:00 Markus inactivated<sup>2</ sup> zoster recombinant zoster recombinant Unknown Completed [facility] Vital Signs Vital Name Observation Time Observation Value Comments Source HEIGHT 2019-12-13 00:00:00 157.5 cm WEIGHT 2019-12-13 00:00:00 65.318 kg BP Diastolic 2021-10-04 00:00:00 79 [facility] Height 2021-10-04 00:00:00 62 [in_i] [facility] BMI (Body Mass 2021-10-04 00:00:00 28.5 kg/m2 [facility] manager state Index) [facility] BP Systolic 2021-10-04 00:00:00 113 mm[Hg] [facility] Body Weight 2021-10-04 00:00:00 155.8 [lb_av] [facility] BP Diastolic 2021-09-24 00:00:00 63 mm[Hg] [facility] Height 2021-09-24 00:00:00 59.9 [in_i] [facility] BMI (Body Mass 2021-09-24 00:00:00 30.4 kg/m2 [facility] Medical Index) Group BP Systolic 2021-09-24 00:00:00 88 mm[Hg] [facility] Body Weight 2021-09-24 00:00:00 2480 [oz_av] [facility] BP Diastolic 2021-07-24 00:00:00 71 mm[Hg] [facility] Height 2021-07-24 00:00:00 62 [in_i] [facility] BMI (Body Mass 2021-07-24 00:00:00 28.3 kg/m2 [facility] Medical Index) Group BP Systolic 2021-07-24 00:00:00 100 mm[Hg] [facility] Body Weight 2021-07-24 00:00:00 2480 [oz_av] [facility] BP Diastolic 2021-07-12 00:00:00 89 mm[Hg] [facility] Height 2021-07-12 00:00:00 62 [in_i] [facility] BMI (Body Mass 2021-07-12 00:00:00 30.3 kg/m2 [facility] Medical Index) Group BP Systolic 2021-07-12 00:00:00 125 mm[Hg] [facility] Body Weight 2021-07-12 00:00:00 2652.8 [oz_av] [facility] HEIGHT 2021-07-02 11:00:00 158.8 cm [...] Diastolic 2021-06-28 00:00:00 93 mm[Hg] [facility] Height 2021-06-28 00:00:00 62 [in_i] [facility] BMI (Body Mass 2021-06-28 00:00:00 30.4 kg/m2 [facility] manager state Index) [facility] BP Systolic 2021-06-28 00:00:00 126 mm[Hg] [facility] Body Weight 2021-06-28 00:00:00 166 [lb_av] [facility] Height 2021-06-24 00:00:00 62 [in_i] [facility] BMI (Body Mass 2021-06-24 00:00:00 28.9 kg/m2 [facility] manager state Medical Index) Group Body Weight 2021-06-24 00:00:00 2528 [oz_av] [facility] HEIGHT 2021-05-03 09:33:00 157.5 cm WEIGHT 2021-05-03 09:33:00 67.132 kg HEIGHT 2021-05-03 09:33:00 157.5 cm WEIGHT 2021-05-03 09:33:00 67.132 kg HEIGHT 2021-05-03 09:33:00 157.5 cm WEIGHT 2021-05-03 09:33:00 67.132 kg Height 2021-04-28 00:00:00 62 [in_i] [facility] BMI (Body Mass 2021-04-28 00:00:00 27.8 kg/m2 [facility] Index[facility] Body Weight 2021-04-28 00:00:00 2432 [oz_av] [facility] BP Diastolic 2021-04-22 00:00:00 74 mm[Hg] [facility] Height 2021-04-22 00:00:00 62 [in_i] [facility] BMI (Body Mass 2021-04-22 00:00:00 27.9 kg/m2 [facility] Index) [facility] BP Systolic 2021-04-22 00:00:00 99 mm[Hg] [facility] Body Weight 2021-04-22 00:00:00 2440 [oz_av] [facility] BP Diastolic 2021-03-29 00:00:00 83 mm[Hg] [facility] Height 2021-03-29 00:00:00 62 [in_i] [facility] BMI (Body Mass 2021-03-29 00:00:00 29.3 kg/m2 [facility] manager state Index) [facility] BP Systolic 2021-03-29 00:00:00 115 mm[Hg] [facility] Body Weight 2021-03-29 00:00:00 160 [lb_av] [facility] Systolic blood 2021-03-12 15:36:00 124 mm[Hg] [facility] pressure Medicine Diastolic blood 2021-03-12 15:36:00 80 mm[Hg] [facility] Medicine Heart rate 2021-03-12 15:36:00 94 /min [facility] Respiratory rate 2021-03-12 15:36:00 18 /min [facility] Body height 2021-03-12 15:36:[address] [facility] Body weight 2021-03-12 15:36:[address] [facility] BMI 2021-03-12 15:36:00 30.43 kg/m2 [facility] Oxygen saturation in 2021-03-12 15:36:00 90 /min [facility] Arterial blood by Medicine Pulse oximetry BP Diastolic 2021-03-02 00:00:00 76 mm[Hg] [facility] Height 2021-03-02 00:00:00 62 [in_i] [facility] BMI (Body Mass 2021-03-02 00:00:00 28.9 kg/m2 [facility] Index) [facility] BP Systolic 2021-03-02 00:00:00 118 mm[Hg] [facility] Body Weight 2021-03-02 00:00:00 158 [lb_av] [facility] BP Diastolic 2021-02-19 00:00:00 78 mm[Hg] [facility] Height 2021-02-19 00:00:00 62 [in_i] [facility] BMI (Body Mass 2021-02-19 00:00:00 29.1 kg/m2 [facility] Index) [facility] BP Systolic 2021-02-19 00:00:00 115 mm[Hg] [facility] Body Weight 2021-02-19 00:00:00 2547.2 [oz_av] [facility] BP Diastolic 2021-01-25 00:00:00 96 mm[Hg] [facility] Height 2021-01-25 00:00:00 62 [in_i] [facility] BMI (Body Mass 2021-01-25 00:00:00 29.3 kg/m2 [facility] Index) [facility] BP Systolic 2021-01-25 00:00:00 129 mm[Hg] [facility] Body Weight 2021-01-25 00:00:00 2561.6 [oz_av] [facility] Systolic blood 2021-01-19 19:17:00 102 mm[Hg] [facility] pressure Medicine Diastolic blood 2021-01-19 19:17:00 71 mm[Hg] [facility] pressure Medicine Heart rate 2021-01-19 19:17:00 84 /min [facility] Body temperature 2021-01-19 19:17:00 36.28 [facility] Body height 2021-01-19 19:17:[address] [facility] Body weight 2021-01-19 19:17:[address] [facility] BMI 2021-01-19 19:17:00 28.35 kg/m2 [facility] Oxygen saturation in 2021-01-19 19:17:00 85 /min [facility] blood by [facility] Pulse oximetry BP Diastolic 2020-12-28 00:00:00 93 mm[Hg] [facility] Height 2020-12-28 00:00:00 62 [in_i] [facility] BMI (Body Mass 2020-12-28 00:00:00 29.7 kg/m2 [facility] Index) [facility] BP Systolic 2020-12-28 00:00:00 133 mm[Hg] [facility] Body Weight 2020-12-28 00:00:00 162.2 [lb_av] [facility] BP Diastolic 2020-12-18 00:00:00 71 mm[Hg] [facility] Height 2020-12-18 00:00:00 62 [in_i] [facility] BMI (Body Mass 2020-12-18 00:00:00 29.7 kg/m2 [facility] Index) [facility] BP Systolic 2020-12-18 00:00:00 104 mm[Hg] [facility] Body Weight 2020-12-18 00:00:00 2598.4 [oz_av] [facility] BP Diastolic 2020-12-08 00:00:00 68 mm[Hg] [facility] Height 2020-12-08 00:00:00 62 [in_i] [facility] BMI (Body Mass 2020-12-08 00:00:00 30.5 kg/m2 [facility] Index) [facility] BP Systolic 2020-12-08 00:00:00 95 mm[Hg] [facility] Body Weight 2020-12-08 00:00:00 2668.8 [oz_av] [facility] BP Diastolic 2020-11-30 00:00:00 76 mm[Hg] [facility] Height 2020-11-30 00:00:00 62 [in_i] [facility] BMI (Body Mass 2020-11-30 00:00:00 30.2 kg/m2 [facility] Index) [facility] BP Systolic 2020-11-30 00:00:00 108 mm[Hg] [facility] Body Weight 2020-11-30 00:00:00 2641.6 [oz_av] [facility] BP Diastolic 2020-11-17 00:00:00 64 mm[Hg] [facility] Height 2020-11-17 00:00:00 62 [in_i] [facility] BMI (Body Mass 2020-11-17 00:00:00 30.2 kg/m2 [facility] Index) [facility] BP Systolic 2020-11-17 00:00:00 90 mm[Hg] [facility] Body Weight 2020-11-17 00:00:00 2640 [oz_av] [facility] BP Diastolic 2020-10-26 00:00:00 96 mm[Hg] [facility] Height 2020-10-26 00:00:00 62 [in_i] [facility] BMI (Body Mass 2020-10-26 00:00:00 31.2 kg/m2 [facility] Index[facility] BP Systolic 2020-10-26 00:00:00 140 mm[Hg] [facility] Body Weight 2020-10-26 00:00:00 2729.6 [oz_av] [facility] BP Diastolic 2020-10-12 00:00:00 91 mm[Hg] [facility] Height 2020-10-12 00:00:00 62 [in_i] [facility] BMI (Body Mass 2020-10-12 00:00:00 30.4 kg/m2 [facility] Index) [facility] BP Systolic 2020-10-12 00:00:00 142 mm[Hg] [facility] Body Weight 2020-10-12 00:00:00 2657.6 [oz_av] [facility] BMI (Body Mass 2020-08-12 00:00:00 31.6 [facility] Body Weight 2020-08-12 00:00:00 2761.6 [oz_av] [facility] Height 2020-08-12 00:00:00 62 [in_i] [facility] BP Diastolic 2020-07-31 00:00:00 82 mm[Hg] [facility] Height 2020-07-31 00:00:00 62 [in_i] [facility] BMI (Body Mass 2020-07-31 00:00:00 31.6 kg/[facility]2 [facility] BP Systolic 2020-07-31 00:00:00 116 mm[Hg] [facility] Body Weight 2020-07-31 00:00:00 172.6 [lb_av] [facility] BP Diastolic 2020-06-23 00:00:00 97 mm[Hg] [facility] Height 2020-06-23 00:00:00 62 [in_i] [facility] BMI (Body Mass 2020-06-23 00:00:00 28.7 kg/m2 [facility] BP Systolic 2020-06-23 00:00:00 142 mm[Hg] [facility] Body Weight 2020-06-23 00:00:00 2512 [oz_av] [facility] BP Diastolic 2020-05-27 00:00:00 71 mm[Hg] [facility] Height 2020-05-27 00:00:00 62 [in_i] [facility] BMI (Body Mass 2020-05-27 00:00:00 27.1 kg/m2 [facility] BP Systolic 2020-05-27 00:00:00 105 mm[Hg] [facility] Body Weight 2020-05-27 00:00:00 147.9 [lb_av] [facility] BP Diastolic 2020-05-04 00:00:00 76 mm[Hg] [facility] Height 2020-05-04 00:00:00 62 [in_i] [facility] BMI (Body Mass 2020-05-04 00:00:00 28.4 kg/m2 [facility] BP Systolic 2020-05-04 00:00:00 116 mm[Hg] [facility] Body Weight 2020-05-04 00:00:00 2481.6 [oz_av] [facility] BP Diastolic 2020-04-02 00:00:00 70 mm[Hg] [facility] Height 2020-04-02 00:00:00 62 [in_i] [facility] BMI (Body Mass 2020-04-02 00:00:00 27.4 kg/m2 [facility] BP Systolic 2020-04-02 00:00:00 101 mm[Hg] [facility] Body Weight 2020-04-02 00:00:00 149.7 [lb_av] [facility] BP Diastolic 2020-03-18 00:00:00 75 mm[Hg] [facility] Height 2020-03-18 00:00:00 62 [in_i] [facility] BMI (Body Mass 2020-03-18 00:00:00 27.3 kg/m2 [facility] Index[facility] BP Systolic 2020-03-18 00:00:00 124 mm[Hg] [facility] Body Weight 2020-03-18 00:00:00 2384 [oz_av] [facility] BP Diastolic 2020-01-24 00:00:00 83 mm[Hg] [facility] Height 2020-01-24 00:00:00 62 [in_i] [facility] BMI (Body Mass 2020-01-24 00:00:00 27.3 kg/m2 [facility] Index) [facility] BP Systolic 2020-01-24 00:00:00 118 mm[Hg] [facility] Body Weight 2020-01-24 00:00:00 2384 [oz_av] [facility] BP Diastolic 2020-01-17 00:00:00 71 mm[Hg] [facility] Height 2020-01-17 00:00:00 62 [in_i] [facility] BMI (Body Mass 2020-01-17 00:00:00 27.1 kg/m2 [facility] Index[facility] BP Systolic 2020-01-17 00:00:00 107 mm[Hg] [facility] Body Weight 2020-01-17 00:00:00 148.2 [lb_av] [facility] HEIGHT 2019-12-13 00:00:00 157.5 cm WEIGHT 2019-12-13 00:00:00 65.318 kg Body height 2019-12-17 18:52:00 157.5 cm [facility] Body weight 2019-12-17 18:52:00 68.04 kg [facility] BMI 2019-12-17 18:52:00 27.44 kg/m2 [facility] Body height 2019-12-17 18:52:00 157.5 cm [facility] Body weight 2019-12-17 18:52:00 68.04 kg [facility] BMI 2019-12-17 18:52:00 27.44 kg/m2 [facility] Body height 2019-12-17 18:52:00 157.5 cm [facility] Body weight 2019-12-17 18:52:00 68.04 kg [facility] BMI 2019-12-17 18:52:00 27.44 kg/m2 [facility] BP Diastolic 2019-12-03 00:00:00 73 mm[Hg] [facility] Height 2019-12-03 00:00:00 62 [in_i] [facility] BMI (Body Mass 2019-12-03 00:00:00 27.1 kg/m2 [facility] Index[facility] BP Systolic 2019-12-03 00:00:00 105 mm[Hg] [facility] Body Weight 2019-12-03 00:00:00 148 [lb_av] [facility] BP Diastolic 2019-11-07 00:00:00 73 mm[Hg] [facility] Height 2019-11-07 00:00:00 62 [in_i] [facility] BMI (Body Mass 2019-11-07 00:00:00 27.1 kg/m2 [facility] Medical Index) Group BP Systolic 2019-11-07 00:00:00 105 mm[Hg] [facility] Body Weight 2019-11-07 00:00:00 2369 [oz_av] [facility] BP Diastolic 2019-10-15 00:00:00 94 mm[Hg] [facility] Height 2019-10-15 00:00:00 62 [in_i] [facility] BMI (Body Mass 2019-10-15 00:00:00 27.8 kg/m2 [facility] Medical Index) Group BP Systolic 2019-10-15 00:00:00 135 mm[Hg] [facility] Body Weight 2019-10-15 00:00:00 2432 [oz_av] [facility] BP Diastolic 2019-07-12 00:00:00 77 mm[Hg] [facility] Height 2019-07-12 00:00:00 62 [in_i] [facility] BMI (Body Mass 2019-07-12 00:00:00 27.7 kg/m2 [facility] Medical Index) Group BP Systolic 2019-07-12 00:00:00 101 mm[Hg] [facility] Body Weight 2019-07-12 00:00:00 2425 [oz_av] [facility] Systolic blood 2019-07-11 16:12:00 111 mm[Hg] [facility] pressure Medicine Diastolic blood 2019-07-11 16:12:00 77 mm[Hg] [facility] of pressure Medicine Heart rate 2019-07-11 16:12:00 99 /min [facility] Body temperature 2019-07-11 16:12:00 36.72 [facility] Body height 2019-07-11 16:12:00 157.5 cm [facility] Body weight 2019-07-11 16:12:00 65.772 kg [facility] BMI 2019-07-11 16:12:00 26.52 kg/m2 [facility] Systolic blood 2019-07-11 16:12:00 111 mm[Hg] [facility] pressure Medicine Diastolic blood 2019-07-11 16:12:00 77 mm[Hg] [facility] of pressure Medicine Heart rate 2019-07-11 16:12:00 99 /min [facility] Body temperature 2019-07-11 16:12:00 36.72 [facility] Body height 2019-07-11 16:12:00 157.5 cm [facility] Body weight 2019-07-11 16:12:00 65.772 kg [facility] BMI 2019-07-11 16:12:00 26.52 kg/m2 [facility] Systolic blood 2019-07-11 16:12:00 111 mm[Hg] [facility] pressure Medicine Diastolic blood 2019-07-11 16:12:00 77 mm[Hg] [facility] pressure Medicine Heart rate 2019-07-11 16:12:00 99 /min [facility] Body temperature 2019-07-11 16:12:00 36.72 [facility] Body height 2019-07-11 16:12:00 157.5 cm [facility] Body weight 2019-07-11 16:12:00 65.772 kg [facility] BMI 2019-07-11 16:12:00 26.52 kg/m2 [facility] Systolic blood 2019-06-19 15:35:00 138 mm[Hg] [facility] pressure Medicine Diastolic blood 2019-06-19 15:35:00 86 mm[Hg] [facility] pressure Medicine Heart rate 2019-06-19 15:35:00 78 /min [facility] Respiratory rate 2019-06-19 15:35:00 16 /min [facility] Body height 2019-06-19 15:35:00 157.5 cm [facility] Body weight 2019-06-19 15:35:00 66.588 kg [facility] BMI 2019-06-19 15:35:00 26.85 kg/m2 [facility] Systolic blood 2019-06-19 16:57:00 127 mm[Hg] [facility] pressure Medicine Diastolic blood 2019-06-19 16:57:00 70 mm[Hg] [facility] Medicine Heart rate 2019-06-19 16:57:00 95 /min [facility] Body temperature 2019-06-19 16:57:00 36.56 [facility] Respiratory rate 2019-06-19 16:57:00 18 /min [facility] Body height 2019-06-19 16:57:00 157.5 cm [facility] Body weight 2019-06-19 16:57:00 66.679 kg [facility] BMI 2019-06-19 16:57:00 26.89 kg/m2 [facility] Systolic blood 2019-06-19 15:35:00 138 mm[Hg] [facility] pressure Medicine Diastolic blood 2019-06-19 15:35:00 86 mm[Hg] [facility] pressure Medicine Heart rate 2019-06-19 15:35:00 78 /min [facility] Respiratory rate 2019-06-19 15:35:00 16 /min [facility] Body height 2019-06-19 15:35:00 157.5 cm [facility] Body weight 2019-06-19 15:35:00 66.588 kg [facility] BMI 2019-06-19 15:35:00 26.85 kg/m2 [facility] Systolic blood 2019-06-19 15:35:00 138 mm[Hg] [facility] pressure Medicine Diastolic blood 2019-06-19 15:35:00 86 mm[Hg] [facility] pressure Medicine Heart rate 2019-06-19 15:35:00 78 /min [facility] Respiratory rate 2019-06-19 15:35:00 16 /min [facility] Body height 2019-06-19 15:35:00 157.5 cm [facility] Body weight 2019-06-19 15:35:00 66.588 kg [facility] BMI 2019-06-19 15:35:00 26.85 kg/m2 [facility] Systolic blood 2019-06-19 16:57:00 127 mm[Hg] [facility] pressure Medicine Diastolic blood 2019-06-19 16:57:00 70 mm[Hg] [facility] Medicine Heart rate 2019-06-19 16:57:00 95 /min [facility] Body temperature 2019-06-19 16:57:00 36.56 [facility] Respiratory rate 2019-06-19 16:57:00 18 /min [facility] Body height 2019-06-19 16:57:00 157.5 cm [facility] Body weight 2019-06-19 16:57:00 66.679 kg [facility] BMI 2019-06-19 16:57:00 26.89 kg/m2 [facility] Systolic blood 2019-06-19 16:57:00 127 mm[Hg] [facility] Medicine Diastolic blood 2019-06-19 16:57:00 70 mm[Hg] [facility] Medicine Heart rate 2019-06-19 16:57:00 95 /min [facility] Body temperature 2019-06-19 16:57:00 36.56 [facility] Respiratory rate 2019-06-19 16:57:00 18 /min [facility] Body height 2019-06-19 16:57:00 157.5 cm [facility] Body weight 2019-06-19 16:57:00 66.679 kg [facility] BMI 2019-06-19 16:57:00 26.89 kg/m2 [facility] Systolic blood 2019-06-12 14:20:00 100 mm[Hg] [facility] pressure Medicine Diastolic blood 2019-06-12 14:20:00 69 mm[Hg] [facility] Medicine Heart rate 2019-06-12 14:20:00 98 /min [facility] Body temperature 2019-06-12 14:20:00 37.11 [facility] Respiratory rate 2019-06-12 14:20:00 16 /min [facility] Body height 2019-06-12 14:20:00 157.5 cm [facility] Body weight 2019-06-12 14:20:00 67.223 kg [facility] BMI 2019-06-12 14:20:00 27.11 kg/m2 [facility] Systolic blood 2019-06-12 14:20:00 100 mm[Hg] [facility] pressure Medicine Diastolic blood 2019-06-12 14:20:00 69 mm[Hg] [facility] of pressure Medicine Heart rate 2019-06-12 14:20:00 98 /min [facility] Body temperature 2019-06-12 14:20:00 37.11 [facility] Respiratory rate 2019-06-12 14:20:00 16 /min [facility] Body height 2019-06-12 14:20:00 157.5 cm [facility] Body weight 2019-06-12 14:20:00 67.223 kg [facility] BMI 2019-06-12 14:20:00 27.11 kg/m2 [facility] Systolic blood 2019-06-12 14:20:00 100 mm[Hg] [facility] pressure Medicine Diastolic blood 2019-06-12 14:20:00 69 mm[Hg] [facility] of pressure Medicine Heart rate 2019-06-12 14:20:00 98 /min [facility] Body temperature 2019-06-12 14:20:00 37.11 [facility] Respiratory rate 2019-06-12 14:20:00 16 /min [facility] Body height 2019-06-12 14:20:00 157.5 cm [facility] Body weight 2019-06-12 14:20:00 67.223 kg [facility] BMI 2019-06-12 14:20:00 27.11 kg/m2 [facility] BP Diastolic 2019-05-08 00:00:00 81 mm[Hg] [facility] Height 2019-05-08 00:00:00 62 [in_i] [facility] BMI (Body Mass 2019-05-08 00:00:00 27.3 kg/m2 [facility]) Group BP Systolic 2019-05-08 00:00:00 123 mm[Hg] [facility] Body Weight 2019-05-08 00:00:00 2384 [oz_av] [facility] BP Diastolic 2019-01-29 00:00:00 64 mm[Hg] [facility] Height 2019-01-29 00:00:00 62 [in_i] [facility] BMI (Body Mass 2019-01-29 00:00:00 27.9 kg/m2 [facility]) Group BP Systolic 2019-01-29 00:00:00 108 mm[Hg] [facility] Body Weight 2019-01-29 00:00:00 152.3 [lb_av] [facility] BP Diastolic 2019-01-25 00:00:00 71 mm[Hg] [facility] Height 2019-01-25 00:00:00 62 [in_i] [facility] BMI (Body Mass 2019-01-25 00:00:00 28.2 kg/m2 [facility] Index) Group BP Systolic 2019-01-25 00:00:00 91 mm[Hg] [facility] Body Weight 2019-01-25 00:00:00 154.2 [lb_av] [facility] BP Diastolic 2019-01-07 00:00:00 80 mm[Hg] [facility] Height 2019-01-07 00:00:00 62 [in_i] [facility] BMI (Body Mass 2019-01-07 00:00:00 29 kg/m2 [facility] Medical Index) Group BP Systolic 2019-01-07 00:00:00 109 mm[Hg] [facility] Body Weight 2019-01-07 00:00:00 158.6 [lb_av] [facility] BP Diastolic 2018-12-27 00:00:00 67 mm[Hg] [facility] Height 2018-12-27 00:00:00 62 [in_i] [facility] BMI (Body Mass 2018-12-27 00:00:00 27.9 kg/m2 [facility] BP Systolic 2018-12-27 00:00:00 92 mm[Hg] [facility] Body Weight 2018-12-27 00:00:00 152.3 [lb_av] [facility] Systolic blood 2018-12-18 15:04:00 110 mm[Hg] [facility] pressure Medicine Diastolic blood 2018-12-18 15:04:00 60 mm[Hg] [facility] Medicine Heart rate 2018-12-18 15:04:00 74 /min [facility] Body temperature 2018-12-18 15:04:00 36.67 Marguerite [facility] Respiratory rate 2018-12-18 15:04:00 16 /min [facility] Body height 2018-12-18 15:04:00 157[facility]5 cm [facility] Body weight 2018-12-18 15:04:00 70.67 [facility] BMI 2018-12-18 15:04:00 28.50 kg/m2 [facility] Systolic blood 2018-12-18 15:04:00 110 mm[Hg] [facility] Medicine Diastolic blood 2018-12-18 15:04:00 60 mm[Hg] [facility] Medicine Heart rate 2018-12-18 15:04:00 74 /min [facility] Body temperature 2018-12-18 15:04:00 36.67 Marguerite [facility] Respiratory rate 2018-12-18 15:04:00 16 /min [facility] Body height 2018-12-18 15:04:00 157.5 cm [facility] Body weight 2018-12-18 15:04:00 70.67 kg [facility] BMI 2018-12-18 15:04:00 28.50 [facility]2 [facility] Sy[facility] blood 2018-12-18 15:04:00 110 mm[Hg] [facility] pressure Medicine Diastolic blood 2018-12-18 15:04:00 60 mm[Hg] [facility] Medicine Heart rate 2018-12-18 15:04:00 74 /min [facility] Body temperature 2018-12-18 15:04:00 36.67 Marguerite [facility] Respiratory rate 2018-12-18 15:04:00 16 /min [facility] Body height 2018-12-18 15:04:[address] [facility] Body weight 2018-12-18 15:04:[address] [facility] BMI 2018-12-18 15:04:00 28.50 kg/m2 [facility] BP Diastolic 2018-12-17 00:00:00 93 mm[Hg] [facility] Height 2018-12-17 00:00:00 62 [in_i] [facility] BMI (Body Mass 2018-12-17 00:00:00 28.3 kg/m2 [facility] manager state Medical Index) Group BP Systolic 2018-12-17 00:00:00 137 mm[Hg] [facility] Body Weight 2018-12-17 00:00:00 2480 [oz_av] [facility] BP Diastolic 2018-12-07 00:00:00 73 mm[Hg] [facility] Height 2018-12-07 00:00:00 62 [in_i] [facility] BMI (Body Mass 2018-12-07 00:00:00 30 kg/m2 [facility] Medical Index) Group BP Systolic 2018-12-07 00:00:00 145 mm[Hg] [facility] Body Weight 2018-12-07 00:00:00 2624 [oz_av] [facility] BP Diastolic 2018-10-17 00:00:00 90 mm[Hg] [facility] Height 2018-10-17 00:00:00 62 [in_i] [facility] BMI (Body Mass 2018-10-17 00:00:00 27.3 kg/m2 [facility] manager state Medical Index) Group BP Systolic 2018-10-17 00:00:00 153 mm[Hg] [facility] Body Weight 2018-10-17 00:00:00 2384 [oz_av] [facility] BP Diastolic 2018-09-17 00:00:00 84 mm[Hg] [facility] Height 2018-09-17 00:00:00 62 [in_i] [facility] BMI (Body Mass 2018-09-17 00:00:00 27.3 kg/m2 [facility] Medical Index) Group BP Systolic 2018-09-17 00:00:00 120 mm[Hg] [facility] Body Weight 2018-09-17 00:00:00 2384 [oz_av] [facility] BP Diastolic 2018-08-29 00:00:00 80 mm[Hg] [facility] Height 2018-08-29 00:00:00 62 [in_i] [facility] BMI (Body Mass 2018-08-29 00:00:00 27.3 kg/m2 [facility] Medical Index) Group BP Systolic 2018-08-29 00:00:00 105 mm[Hg] [facility] Body Weight 2018-08-29 00:00:00 2384 [oz_av] [facility] BP Diastolic 2018-08-15 00:00:00 94 mm[Hg] [facility] Height 2018-08-15 00:00:00 62 [in_i] [facility] BMI (Body Mass 2018-08-15 00:00:00 29.1 kg/m2 [facility] Medical Index) Group BP Systolic 2018-08-15 00:00:00 136 mm[Hg] [facility] Body Weight 2018-08-15 00:00:00 2544 [oz_av] [facility] Systolic blood 2021-09-10 14:30:00 129 mm[Hg] [facility] Diastolic blood 2021-09-10 14:30:00 76 mm[Hg] [facility] Heart rate 2021-09-10 14:30:00 50 /min [facility] Body temperature 2021-09-10 14:30:00 36 Marguerite [facility] Respiratory rate 2021-09-10 14:30:00 18 /min [facility] Oxygen saturation in 2021-09-10 14:30:00 96 /min [facility] Arterial blood by Medical Ce nter Pulse oximetry Body height 2021-07-02 11:00:00 158.8 cm [facility] Body weight 2021-07-02 11:00:00 72.349 kg [facility] BMI 2021-07-02 11:00:00 28.71 kg/m2 [facility] Systolic blood 2021-05-25 20:58:00 140 mm[Hg] [facility] pressure Diastolic blood 2021-05-25 20:58:00 89 mm[Hg] [facility] pressure Heart rate 2021-05-25 20:58:00 89 /min [facility] Body height 2021-05-25 20:58:00 157.5 cm [facility] Body weight 2021-05-25 20:58:00 71.668 kg [facility] BMI 2021-05-25 20:58:00 28.90 kg/m2 [facility] Respiratory rate 2021-05-10 21:40:00 20 /min [facility] Oxygen saturation in 2021-05-10 21:40:00 94 /min [facility] Arterial blood by Pulse oximetry Body temperature 2021-05-10 21:15:00 36.67 Marguerite [facility] Systolic blood 2021-05-03 13:00:00 142 mm[Hg] [facility] Diastolic blood 2021-05-03 13:00:00 97 mm[Hg] [facility] Heart rate 2021-05-03 13:00:00 63 /min [facility] Respiratory rate 2021-05-03 13:00:00 8 /min [facility] Oxygen saturation in 2021-05-03 13:00:00 95 /min [facility] Arterial blood by Medical Ce nter Pulse oximetry Body temperature 2021-05-03 09:33:00 36.61 Marguerite [facility] Body height 2021-05-03 09:33:00 157.5 cm [facility] Body weight 2021-05-03 09:33:00 67.132 kg [facility] BMI 2021-05-03 09:33:00 27.07 kg/m2 [facility] Respitory Rate 2020-08-03 13:45:00 [facility] [place] Systolic (mm Hg) 2020-08-03 13:45:00 [facility] Diastolic (mm Hg) 2020-08-03 13:45:00 [facility] Respitory Rate 2020-08-03 13:30:00 [facility] [place] Systolic (mm Hg) 2020-08-03 13:30:00 [facility] [place] Diastolic (mm Hg) 2020-08-03 13:30:00 [facility] Respitory Rate 2020-08-03 13:15:00 [facility] [place] Systolic (mm Hg) 2020-08-03 13:15:00 [facility] Diastolic (mm Hg) 2020-08-03 13:15:00 [facility] [place] Height 2020-07-31 19:34:00 157.48 cm [facility] Weight 2020-07-31 19:34:00 [facility] [place] BMI Calculated 2020-07-31 19:34:00 [facility] [place] Respitory Rate 2020-05-12 01:00:00 [facility] Systolic (mm Hg) 2020-05-12 01:00:00 [facility] [place] Diastolic (mm Hg) 2020-05-12 01:00:00 [facility] Respitory Rate 2020-05-12 00:45:00 [facility] [place] Respitory Rate 2020-05-11 23:45:00 [facility] [place] Systolic (mm Hg) 2020-05-11 23:45:00 [facility] [place] Diastolic (mm Hg) 2020-05-11 23:45:00 [facility] [place] Systolic (mm Hg) 2020-05-11 23:30:00 [facility] Diastolic (mm Hg) 2020-05-11 23:30:00 [facility] Heart Rate 2020-05-11 16:14:00 [facility] [place] Height 2020-05-07 16:08:00 157.48 cm [facility] [place] Weight 2020-05-07 16:08:00 [facility] [place] BMI Calculated 2020-05-07 16:08:00 [facility] [place] Height 2019-12-17 18:52:00 157.5 cm [facility] Weight 2019-12-17 18:52:00 [facility] Systolic (mm Hg) 2019-11-07 14:12:00 [facility] Diastolic (mm Hg) 2019-11-07 14:12:00 [facility] [place] Heart Rate 2019-11-07 14:12:00 [facility] Height 2019-11-07 14:12:00 158.8 cm [facility] Weight 2019-11-07 14:12:00 [facility] [place] Systolic (mm Hg) 2019-07-11 16:12:00 [facility] [place] Diastolic (mm Hg) 2019-07-11 16:12:00 [facility] Heart Rate 2019-07-11 16:12:00 [facility] Temperature Oral (F) 2019-07-11 16:12:00 36.72 Marguerite [facility] Height 2019-07-11 16:12:00 157.5 cm [facility] [place] Weight 2019-07-11 16:12:00 [facility] Systolic (mm Hg) 2019-06-19 16:57:00 [facility] Diastolic (mm Hg) 2019-06-19 16:57:00 [facility] [place] Heart Rate 2019-06-19 16:57:00 [facility] [place] Temperature Oral (F) 2019-06-19 16:57:00 36.56 [facility] Respitory Rate 2019-06-19 16:57:00 [facility] [place] Height 2019-06-19 16:57:00 157.5 cm [facility] [place] Weight 2019-06-19 16:57:00 [facility] [place] Systolic (mm Hg) 2019-06-19 15:35:00 [facility] Diastolic (mm Hg) 2019-06-19 15:35:00 [facility] Heart Rate 2019-06-19 15:35:00 [facility] [place] Respitory Rate 2019-06-19 15:35:00 [facility] [place] Height 2019-06-19 15:35:00 157.5 cm [facility] Weight 2019-06-19 15:35:00 [facility] [place] Systolic (mm Hg) 2019-06-12 14:20:00 [facility] Diastolic (mm Hg) 2019-06-12 14:20:00 [facility] [place] Heart Rate 2019-06-12 14:20:00 [facility] Temperature Oral (F) 2019-06-12 14:20:00 37.11 Marguerite [facility] [place] Respitory Rate 2019-06-12 14:20:00 [facility] [place] Height 2019-06-12 14:20:00 157.5 cm [facility] Weight 2019-06-12 14:20:00 [facility] Systolic (mm Hg) 2018-12-18 15:04:00 [facility] Diastolic (mm Hg) 2018-12-18 15:04:00 [facility] [place] Heart Rate 2018-12-18 15:04:00 [facility] Temperature Oral (F) 2018-12-18 15:04:00 36.67 Marguerite [facility] [place] Respitory Rate 2018-12-18 15:04:00 [facility] Height 2018-12-18 15:04:00 157.5 cm [facility] [place] Weight 2018-12-18 15:04:00 [facility] [place] Temperature Oral (F) 2018-10-16 12:11:00 97.1 F [facility] [place] Heart Rate 2018-10-16 12:11:00 [facility] [place] Respitory Rate 2018-10-16 12:11:00 [facility] [place] Systolic (mm Hg) 2018-10-16 12:11:00 [facility] Diastolic (mm Hg) 2018-10-16 12:11:00 [facility] Height 2018-10-16 01:03:00 [facility] Weight 2018-10-16 01:03:00 [facility] [place] Temperature Oral (F) 2017-02-18 23:13:00 98.9 F [facility] Heart Rate 2017-02-18 23:13:00 [facility] [place] Respitory Rate 2017-02-18 23:13:00 [facility] [place] Diastolic (mm Hg) 2017-02-18 23:13:00 [facility] [place] Systolic (mm Hg) 2017-02-18 23:13:00 [facility] [place] Diastolic (mm Hg) 2017-02-18 21:48:00 [facility] [place] Respitory Rate 2017-02-18 21:48:00 [facility] Systolic (mm Hg) 2017-02-18 21:48:00 [facility] Heart Rate 2017-02-18 21:48:00 [facility] [place] Weight 2017-02-18 20:38:00 [facility] [place] Temperature Oral (F) 2017-02-18 20:38:00 98.9 F [facility] [place] Respitory Rate 2017-02-18 20:38:00 [facility] [place] Heart Rate 2017-02-18 20:38:00 [facility] [place] Systolic (mm Hg) 2017-02-18 20:38:00 [facility] Diastolic (mm Hg) 2017-02-18 20:38:00 [facility] [place] Systolic (mm Hg) 2016-10-12 12:36:00 [facility] Diastolic (mm Hg) 2016-10-12 12:36:00 [facility] [place] Heart Rate 2016-10-12 12:36:00 [facility] Temperature Oral (F) 2016-10-12 12:36:00 98.1 F [facility] Respitory Rate 2016-10-12 12:36:00 [facility] Temperature Oral (F) 2016-10-12 04:32:00 97.7 F [facility] Heart Rate 2016-10-12 04:32:00 [facility] Systolic (mm Hg) 2016-10-12 04:32:00 [facility] Diastolic (mm Hg) 2016-10-12 04:32:00 [facility] [place] Respitory Rate 2016-10-12 04:32:00 [facility] Temperature Oral (F) 2016-10-12 00:11:00 98.2 F [facility] Systolic (mm Hg) 2016-10-12 00:11:00 [facility] Diastolic (mm Hg) 2016-10-12 00:11:00 [facility] Respitory Rate 2016-10-12 00:11:00 [facility] [place] Heart Rate 2016-10-12 00:11:00 [facility] BMI Calculated 2016-10-10 07:28:00 [facility] Weight 2016-10-10 07:28:00 [facility] Height 2016-10-10 07:28:00 157.48 cm [facility] Weight 2016-10-10 03:22:00 [facility] [place] Temperature Oral (F) 2016-02-10 21:38:00 98.2 F [facility] [place] Respitory Rate 2016-02-10 21:38:00 [facility] Heart Rate 2016-02-10 21:38:00 [facility] Systolic (mm Hg) 2016-02-10 21:38:00 [facility] [place] Diastolic (mm Hg) 2016-02-10 21:38:00 [facility] Height 2016-02-10 18:31:00 157.48 cm [facility] Weight 2016-02-10 18:31:00 [facility] BMI Calculated 2016-02-10 18:31:00 [facility] Systolic (mm Hg) 2016-02-10 18:31:00 [facility] [place] Diastolic (mm Hg) 2016-02-10 18:31:00 [facility] Respitory Rate 2016-02-10 18:31:00 [facility] [place] Heart Rate 2016-02-10 18:31:00 [facility] [place] Temperature Oral (F) 2016-02-10 18:31:00 98.4 F [facility] [place] Temperature Oral (F) 2014-08-13 16:57:00 98.1 F [facility] [place] Heart Rate 2014-08-13 16:57:00 [facility] Systolic (mm Hg) 2014-08-13 16:57:00 [facility] Diastolic (mm Hg) 2014-08-13 16:57:00 [facility] [place] Respitory Rate 2014-08-13 16:57:00 [facility] [place] Respitory Rate 2014-08-13 15:44:00 [facility] Heart Rate 2014-08-13 15:44:00 [facility] Systolic (mm Hg) 2014-08-13 15:44:00 [facility] [place] Diastolic (mm Hg) 2014-08-13 15:44:00 [facility] [place] Heart Rate 2014-08-13 14:30:00 [facility] Respitory Rate 2014-08-13 14:30:00 [facility] [place] Systolic (mm Hg) 2014-08-13 14:30:00 [facility] Diastolic (mm Hg) 2014-08-13 14:30:00 [facility] [place] Weight 2014-08-13 11:54:00 [facility] BMI Calculated 2014-08-13 11:54:00 [facility] Height 2014-08-13 11:54:00 170.18 cm [facility] Temperature Oral (F) 2014-08-13 11:54:00 97.4 F [facility] [place] Heart Rate 2014-03-09 17:53:00 [facility] [place] Temperature Oral (F) 2014-03-09 17:53:00 97.9 F [facility] Systolic (mm Hg) 2014-03-09 17:53:00 [facility] [place] Respitory Rate 2014-03-09 17:53:00 [facility] Diastolic (mm Hg) 2014-03-09 17:53:00 [facility] Diastolic (mm Hg) 2014-03-09 15:56:00 [facility] [place] Systolic (mm Hg) 2014-03-09 15:56:00 [facility] Respitory Rate 2014-03-09 15:56:00 [facility] Heart Rate 2014-03-09 15:56:00 [facility] Temperature Oral (F) 2014-03-09 15:56:00 97.9 F [facility] Weight 2014-03-09 11:40:00 [facility] [place] Height 2014-03-09 11:40:00 160.02 cm [facility] [place] BMI Calculated 2014-03-09 11:40:00 [facility] [place] Temperature Oral (F) 2014-03-09 11:40:00 98.1 F [facility] [place] Heart Rate 2014-03-09 11:40:00 [facility] [place] Respitory Rate 2014-03-09 11:40:00 [facility] Diastolic (mm Hg) 2014-03-09 11:40:00 [facility] Systolic (mm Hg) 2014-03-09 11:40:00 [facility] [place] Systolic (mm Hg) 2014-01-14 23:08:00 [facility] [place] Diastolic (mm Hg) 2014-01-14 23:08:00 [facility] [place] Temperature Oral (F) 2014-01-14 23:08:00 98.3 F [facility] [place] Heart Rate 2014-01-14 23:08:00 [facility] [place] Respitory Rate 2014-01-14 23:08:00 [facility] [place] Respitory Rate 2014-01-14 20:30:00 [facility] [place] Systolic (mm Hg) 2014-01-14 20:30:00 [facility] [place] Diastolic (mm Hg) 2014-01-14 20:30:00 [facility] Heart Rate 2014-01-14 20:30:00 [facility] [place] Systolic (mm Hg) 2014-01-14 16:36:00 [facility] Respitory Rate 2014-01-14 16:36:00 [facility] [place] Diastolic (mm Hg) 2014-01-14 16:36:00 [facility] [place] Heart Rate 2014-01-14 16:36:00 [facility] Temperature Oral (F) 2014-01-14 13:03:00 99.1 F [facility] [place] Height 2014-01-14 13:03:00 157.48 cm [facility] Weight 2014-01-14 13:03:00 [facility] BMI Calculated 2014-01-14 13:03:00 [facility] [place] Systolic (mm Hg) 2014-01-14 07:25:00 [facility] [place] Diastolic (mm Hg) 2014-01-14 07:25:00 [facility] [place] Respitory Rate 2014-01-14 07:25:00 [facility] Heart Rate 2014-01-14 07:25:00 [facility] Temperature Oral (F) 2014-01-14 07:25:00 98.5 F [facility] Heart Rate 2014-01-14 03:04:00 [facility] [place] Respitory Rate 2014-01-14 03:04:00 [facility] Temperature Oral (F) 2014-01-14 03:04:00 98.8 F [facility] Diastolic (mm Hg) 2014-01-14 03:04:00 [facility] Systolic (mm Hg) 2014-01-14 03:04:00 [facility] [place] Weight 2014-01-14 03:04:00 [facility] [place] Temperature Oral (F) 2013-11-22 16:34:00 98.6 F [facility] [place] Heart Rate 2013-11-22 16:34:00 [facility] [place] Systolic (mm Hg) 2013-11-22 16:34:00 [facility] [place] Respitory Rate 2013-11-22 16:34:00 [facility] [place] Diastolic (mm Hg) 2013-11-22 16:34:00 [facility] [place] BMI Calculated 2013-11-22 15:46:00 [facility] [place] Height 2013-11-22 15:46:00 157.48 cm [facility] [place] Weight 2013-11-22 15:46:00 [facility] Respitory Rate 2013-11-22 15:46:00 [facility] Heart Rate 2013-11-22 15:46:00 [facility] [place] Temperature Oral (F) 2013-11-22 15:46:00 98.1 F [facility] [place] Systolic (mm Hg) 2013-11-22 15:46:00 [facility] Diastolic (mm Hg) 2013-11-22 15:46:00 [facility] [place] Weight 2013-08-05 15:21:09 [facility] Temperature Oral (F) 2013-08-05 15:21:09 97.7 F [facility] Systolic (mm Hg) 2013-08-05 15:21:09 [facility] Diastolic (mm Hg) 2013-08-05 15:21:09 [facility] Heart Rate 2013-08-05 15:21:09 [facility] [place] Respitory Rate 2013-08-05 15:21:09 [facility] [place] Height 2013-02-01 15:27:40 [facility] [place] Weight 2013-02-01 15:27:40 [facility] Temperature Oral (F) 2013-02-01 15:27:40 97.5 F [facility] [place] Heart Rate 2013-02-01 15:27:40 [facility] [place] Systolic (mm Hg) 2013-02-01 15:27:40 [facility] Diastolic (mm Hg) 2013-02-01 15:27:40 [facility] Respitory Rate 2013-02-01 15:27:40 [facility] [place] Procedures Procedure Date / Time Performing Clinician Source Performed MAMMO, screening, digital, 2021-09-24 00:00:00 [facility] LDCT, chest, for lung 2021-09-24 00:00:00 [facility] Medical cancer screening Group BASIC METABOLIC PANEL (7) 2021-09-10 06:14:00 Sylvain Staton [facility] HEPATIC FUNCTION PANEL 2021-09-10 06:14:00 [facility] MAGNESIUM 2021-09-10 06:14:00 [facility] PHOSPHORUS 2021-09-10 06:14:00 [facility] CBC W/PLT COUNT & AUTO 2021-09-10 06:14:00 [facility] CBC W/PLT COUNT & AUTO 2021-09-10 06:14:00 [facility] PHOSPHORUS 2021-09-09 03:18:00 [facility] CBC W/PLT COUNT & AUTO 2021-09-09 03:18:00 [facility] CBC W/PLT COUNT & AUTO 2021-09-09 03:18:00 [facility] BASIC METABOLIC PANEL (7) 2021-09-09 03:18:00 [facility] HEPATIC FUNCTION PANEL 2021-09-09 03:18:00 [facility] MAGNESIUM 2021-09-09 03:18:00 [facility] FL UPPER GI AIR CONTRAST 2021-09-08 16:23:[address] [facility] WITH SMALL BOWEL [facility] SARS-COV2/RT-PCR ([facility] & 2021-09-08 06:09:00 [facility] REF LABS) Medical Center TYPE AND SCREEN, AUTOMATED 2021-09-08 05:54:00 [facility] CBC W/PLT COUNT & AUTO 2021-09-08 05:54:00 [facility] CBC W/PLT COUNT & AUTO 2021-09-08 05:54:00 [facility] BASIC METABOLIC PANEL (7) 2021-09-08 05:54:00 [facility] PROTHROMBIN TIME/INR 2021-09-08 05:54:00 [facility] APTT 2021-09-08 05:54:00 [facility] XR ABDOMEN / KUB 1 VIEW 2021-09-08 [facility] [facility]REM[facility] WITHOUT 2021-09-01 12:50:00 System, Provider [facility] IV CONTRAST RIGHT In Medical Center XR, femur, 2 or more view 2021-07-24 00:00:00 [facility] 2021-07-12 00:00:00 [facility] CBC W/PLT COUNT & AUTO 2021-07-07 04:33:00 Malachi Cissemoneefrancisca [facility] CBC W/PLT COUNT & AUTO 2021-07-07 04:33:00 [facility] BASIC METABOLIC PANEL (7) 2021-07-07 04:33:00 Vijay Cisse [facility] MAGNESIUM 2021-07-07 04:33:[address] [facility] CT ABDOMEN/PELVIS WITH IV 2021-07-06 18:45:00 Luzma [facility] FECAL LEUKOCYTES 2021-07-06 10:24:00 [facility] C. DIFFICILE GDH TOXIN 2021-07-06 10:22:00 [facility] GI PATHOGEN PROFILE BY PCR 2021-07-06 09:47:00 Vijay Cisse [facility] CBC W/PLT COUNT & AUTO 2021-07-06 04:39:00 Malachi Cissemoneefrancisca [facility] CBC W/PLT COUNT & AUTO 2021-07-06 04:39:00 [facility] BASIC METABOLIC PANEL (7) 2021-07-06 04:39:00 Vijay Cisse [facility] MAGNESIUM 2021-07-06 04:39:[address] [facility] C-REACTIVE PROTEIN 2021-07-06 04:39:00 Vijay Cisse [facility] CBC W/PLT COUNT & AUTO 2021-07-05 14:55:00 [facility] CBC W/PLT COUNT & AUTO 2021-07-05 14:55:00 Leigha [facility] DIFFERENTIAL [facility] BASIC METABOLIC PANEL (7) 2021-07-05 14:55:00 Conor Cissefrancisca [facility] MAGNESIUM 2021-07-05 14:55:[address] [facility] SARS-COV2/RT-PCR ([facility] & 2021-07-05 12:20:00 [facility] REF LABS) [facility] REPORT OF PROCEDURE - 2021-07-02 13:15:13 Andrew Mocksz [facility] ENDOSCOPY [facility] TISSUE EXAM 2021-07-02 12:46:00 [facility] COLONOSCOPY, WITH BIOPSY 2021-07-02 12:23:00 [facility] [place] AN ELECTIVE 2021-05-10 15:58:52 Samuel Hutchison [facility] ENDOTRACHEAL AIRWAY B REPAIR, HERNIA, INCISIONAL 2021-05-10 15:40:00 [facility] OR VENTRAL POC GLUCOSE 2021-05-10 15:26:00 [facility] ABO AND RH CONFIRMATION 2021-05-10 14:39:00 Otis, Meron Met [facility] ECG PRE/POST OP 2021-05-06 17:50:26 [facility] 2021-05-06 17:44:00 [facility] COVID-19 QUALITATIVE 2021-05-06 17:44:00 Otis, Meron Method [facility] RT-PCR HC COMPLETE BLD COUNT 2021-05-06 17:44:00 Meron Becerra [facility] W/AUTO DIFF COMPREHENSIVE METABOLIC 2021-05-06 17:44:00 [place] [facility] PANEL TYPE AND SCREEN 2021-05-06 17:44:00 [facility] HEMOGLOBIN A1C 2021-05-06 17:44:00 [facility] MR LOWER EXTREMITY JOINT 2021-05-04 08:46:00 Elly Dodson [facility] ONLY WITHOUT IV CONTRAST [facility] RIGHT IR PICC LINE PLACEMENT 2021-05-03 12:11:00 Michael Lopez [facility] OLDER THAN 5 YRS [facility] COMPREHENSIVE METABOLIC 2021-01-19 21:00:00 [facility] Medicine CBC W/AUTO DIFF WITH 2021-01-19 21:00[facility]00 [facility] URINALYSIS AUTO W/SCOPE 2021-01-19 21:00:00 [facility] CULTURE, URINE/SENSITIVITY 2021-01-19 21:00:00 [facility] MR PELVIS WITH & WITHOUT 2020-11-20 11:45:00 April Mock [facility] IV CONTRAST [facility] Center MR ABDOMEN WITH & WITHOUT 2020-11-20 11:45:00 April Mock [facility] IV CONTRAST [facility] Center Knee Surgery 2020-08-03 00:00:00 Janna Arias [...] Assay Abdomen & Pelvis W 2018-10-15 00:00:00 [facility] Contrast Abdomen Acute Series 2018-07-18 00:00:00 Alejandra Aparicio smoking/tobacco cessation, 2013-02-01 15:27:40 [facility] [place] [facility] education and counseling vaginal Pap smear results 2012-01-30 16:10:03 Ok [facility] [place] Hysterectomy 2006-05-01 00:00:00 Janna Arias dical Group Cholecystectomy [facility] Appendectomy [facility] Nasal operation [facility] Arthroscopy of ankle [facility] [place] Knee [facility] replacement<sup>1</sup> Colon operation [facility] Hysterectomy [facility] section [facility] n Large Intestine Excision [facility] [place] [facility] Caesarean Section [place] [facility] Total Hysterectomy [place] [facility] Plan of Care Planned Planned Details Comments Source Activity Date Future 2031-07-03 Screening for malignant neoplasm [facility] Scheduled Test 00:00:00 of colon (procedure) [code = Medical [id number]] [place] Future 2031-07-03 Screening for malignant neoplasm [facility] Scheduled Test 00:00:00 of colon (procedure) [code = Medical [id number]] [place] Future 2030-01-08 Screening for malignant neoplasm [facility] Scheduled Test 00:00:00 of colon (procedure) [code = Medical [id number]] [place] Future 2030-01-08 Screening for malignant neoplasm [facility] Scheduled Test 00:00:00 of colon (procedure) [code = Medical [id number]] [place] Future 2022-01-04 HEPATITIS B VACCINES (1 of 3 - [facility] Scheduled Test 02:02:47 3-dose series) [code = HEPATITIS B Hospital VACCINES (1 of 3 - 3-dose series)] Future 2022-01-04 Pneumococcal Vaccine: Pediatrics [facility] Scheduled Test 02:02:47 (0 to 5 Years) and At-Risk Hospital Patients (6 to 64 Years) (1 - PCV) [code = Pneumococcal Vaccine: Pediatrics (0 to 5 Years) and At-Risk Patients (6 to 64 Years) (1 - PCV)] Future 2022-01-04 Hepatitis C screening (procedure) [facility] Scheduled Test 02:02:47 [code = [id number]] [facility] Future 2022-01-04 Screening for malignant neoplasm [facility] Scheduled Test 02:02:47 of cervix (procedure) [code = Hospital [id number]] Future 2022-01-04 BREAST CANCER SCREENING [code = [facility] Scheduled Test 02:02:47 BREAST CANCER SCREENING] H ospital Future 2022-01-04 COLONOSCOPY SCREENING [code = [facility] Scheduled Test 02:02:47 COLONOSCOPY SCREENING] Hos pital Future 2022-01-04 COVID-19 VACCINE (2 - Moderna [facility] Scheduled Test 02:02:47 series) [code = COVID-19 VACCINE [facility] (2 - Moderna series)] Future 2022-01-04 SHINGLES VACCINES (1 of 2) [code = [facility] Scheduled Test 02:02:47 SHINGLES VACCINES (1 of 2)] [facility] Future 2022-01-04 INFLUENZA VACCINE [code = [facility] Scheduled Test 02:02:47 INFLUENZA VACCINE] [facility] Future 2021-12-30 INFLUENZA VACCINE (#1) [code = [facility] Scheduled Test 00:00:00 INFLUENZA VACCINE (#1)] [facility] Diagnostic Test 2021-09-24 CBC w/ auto diff [code = CBC w/ [place] Pending 00:00:00 auto diff] Medical Group Diagnostic Test 2021-09-24 CMP, serum or plasma [code = CMP, [place] Pending 00:00:00 serum or plasma] Medical Group Diagnostic Test 2021-09-24 lipid panel, serum [code = lipid [place] Pending 00:00:00 panel, serum] Medical Group Diagnostic Test 2021-09-24 HbA1c (hemoglobin A1c), blood [place] Pending 00:00:00 [code = HbA1c (hemoglobin A1c), Medical blood] Group Diagnostic Test 2021-09-24 hepatitis C virus Ab, serum [code [place] Pending 00:00:00 = hepatitis C virus Ab, serum] Medical Group Diagnostic Test 2021-09-24 urinalysis, reflex culture [code = [place] Pending 00:00:00 urinalysis, reflex culture] Medical Group Diagnostic Test 2021-09-24 nicotine, quantitative, serum or [place] Pending 00:00:00 plasma [code = nicotine, Med ical quantitative, serum or plasma] Group Future 2021-09-13 SHINGLES VACCINES (1 of 2) [code = [facility] Scheduled Test 00:00:00 SHINGLES VACCINES (1 of 2)] [facility] Future 2021-09-10 Hepatitis C screening (procedure) [facility] Scheduled Test 18:31:52 [code = [id number]] [facility] Future 2021-09-10 Screening for malignant neoplasm [facility] Scheduled Test 18:31:52 of cervix (procedure) [code = Hospital [id number]] Future 2021-09-10 COVID-19 VACCINE (2 - Moderna [facility] Scheduled Test 18:31:52 3-dose series) [code = COVID-19 Hospital VACCINE (2 - Moderna 3-dose series)] Future 2021-09-10 INFLUENZA VACCINE [code = [facility] Scheduled Test 18:31:52 INFLUENZA VACCINE] [facility] Future 2021-09-10 Hepatitis C screening (procedure) [facility] Scheduled Test 18:31:52 [code = 923432111] [facility] 2021-09-10 Screening for malignant neoplasm [facility] Scheduled Test 18:31:52 of cervix (procedure) [code = Hospital 788093125] Future 2021-09-10 COVID-19 VACCINE (2 - Moderna [facility] Scheduled Test 18:31:52 3-dose series) [code = COVID-19 Hospital VACCINE (2 - Moderna 3-dose series)] Future 2021-09-10 INFLUENZA VACCINE [code = [facility] Scheduled Test 18:31:52 INFLUENZA VACCINE] [facility] 2021-06-09 Hepatitis C screening (procedure) [facility] Scheduled Test 07:04:40 [code = 342849474] [facility] Future 2021-06-09 Screening for malignant neoplasm [facility] Scheduled Test 07:04:40 of cervix (procedure) [code = Hospital [id number]] Future 2021-06-09 INFLUENZA VACCINE [code = [facility] Scheduled Test 07:04:40 INFLUENZA VACCINE] [facility] Future 2021-06-09 COVID-19 VACCINE (3 - Booster) [facility] Scheduled Test 07:04:40 [code = COVID-19 VACCINE (3 - Hospital Booster)] Future 2021-05-31 Hepatitis C screening (procedure) [facility] Scheduled Test 15:06:03 [code = [id number]] [facility] Future 2021-05-31 Screening for malignant neoplasm [facility] Scheduled Test 15:06:03 of cervix (procedure) [code = Hospital 826259709] Future 2021-05-31 INFLUENZA VACCINE [code = [facility] Scheduled Test 15:06:03 INFLUENZA VACCINE] [facility] Future 2021-05-31 COVID-19 VACCINE (3 - Booster) [facility] Scheduled Test 15:06:03 [code = COVID-19 VACCINE (3 - Hospital Booster)] Future 2021-05-01 DEPRESSION SCREENING (12+) [code = [facility] Scheduled Test 00:00:00 DEPRESSION SCREENING (12+)] [facility] Future 2021-05-01 DEPRESSION SCREENING (12+) [code = [facility] Scheduled Test 00:00:00 DEPRESSION SCREENING (12+)] [facility] Future 2021-05-01 DEPRESSION SCREENING (12+) [code = [facility] Scheduled Test 00:00:00 DEPRESSION SCREENING (12+)] [facility] Future 2021-03-12 Screening for malignant neoplasm [facility] Scheduled Test 13:58:55 of breast (procedure) [code = [facility] [id number]] Medicine Future 2021-03-12 Pneumococcal Combined (1 of 2 - [facility] Scheduled Test 13:58:55 PPSV23) [code = Pneumococcal [employer] Combined (1 of 2 - PPSV23)] Medicine Future 2021-03-12 TETANUS SHOT (ADULT) [code = [facility] Scheduled Test 13:58:55 TETANUS SHOT (ADULT)] [facility] Future 2021-03-12 Hepatitis C screening (procedure) [facility] Scheduled Test 13:58:55 [code = [id number]] [facility] Future 2021-03-12 Human immunodeficiency virus [facility] Scheduled Test 13:58:55 screening (procedure) [code = [facility] [id number]] Medicine Future 2021-03-12 Screening for malignant neoplasm [facility] Scheduled Test 13:58:55 of cervix (procedure) [code = [facility] [id number]] Medicine Future 2021-03-12 MEDICARE AWV (Initial) [code = [facility] Scheduled Test 13:58:55 MEDICARE AWV (Initial)] [facility] Future 2021-03-12 BMI FOLLOW UP PLAN [code = BMI [facility] Scheduled Test 13:58:55 FOLLOW UP PLAN] [facility] Future 2021-03-12 FLU VACCINE > 6 MONTHS [code = FLU [facility] Scheduled Test 13:58:55 VACCINE > 6 MONTHS] [facility] Future 2021-03-12 COVID-19 Vaccine (2 - Moderna [facility] Scheduled Test 13:58:55 2-dose series) [code = COVID-19 College of Vaccine (2 - Moderna 2-dose Medicine series)] Future 2021-03-12 ZOSTER VACCINE (1 of 2) [code = [facility] Scheduled Test 13:58:55 ZOSTER VACCINE (1 of 2)] [facility] Future 2021-03-12 Screening for malignant neoplasm [facility] Scheduled Test 13:58:55 of colon (procedure) [code = [facility] [id number]] Medicine Future 2021-03-12 CULTURE, URINE/SENSITIVITY ON ALL Ordered : [facility] Scheduled Test 09:53:03 [code = 76147-3] 03/12/2021 [facility] Future 2021-03-12 URINALYSIS AUTO W/SCOPE [code = Ordered: [facility] Scheduled Test 09:52:45 48654-1] 03/12/2021 [facility] Future 2021-01-25 COVID-19 VACCINE (2 - [...] Moderna [facility] Scheduled Test 00:00:00 series) [code = COVID-19 VACCINE Medical (2 - Moderna series)] Center Future 2021-01-20 Screening for malignant neoplasm [facility] Scheduled Test 12:19:04 of breast (procedure) [code = [facility] 614979250] [facility] Future 2021-01-20 TETANUS SHOT (ADULT) [code = [facility] Scheduled Test 12:19:04 TETANUS SHOT (ADULT)] [facility] Future 2021-01-20 Hepatitis C screening (procedure) [facility] Scheduled Test 12:19:04 [code = 149775489] [facility] Future 2021-01-20 Human immunodeficiency virus [facility] Scheduled Test 12:19:04 screening (procedure) [code = [facility] 249310228] [facility] Future 2021-01-20 Screening for malignant neoplasm [facility] Scheduled Test 12:19:04 of cervix (procedure) [code = [facility] 273630290] [facility] Future 2021-01-20 MEDICARE AWV (Initial) [code = [facility] Scheduled Test 12:19:04 MEDICARE AWV (Initial)] [facility] Future 2021-01-20 BMI FOLLOW UP PLAN [code = BMI [facility] Scheduled Test 12:19:04 FOLLOW UP PLAN] [facility] Future 2021-01-20 FLU VACCINE > 6 MONTHS [code = FLU [facility] Scheduled Test 12:19:04 VACCINE > 6 MONTHS] [facility] Future 2021-01-20 COVID-19 Vaccine (2 - Moderna [facility] Scheduled Test 12:19:04 2-dose series) [code = COVID-19 Box of Vaccine (2 - Moderna 2-dose Medicine series)] Future 2021-01-20 ZOSTER VACCINE (1 of 2) [code = [facility] Scheduled Test 12:19:04 ZOSTER VACCINE (1 of 2)] [facility] Future 2021-01-20 Screening for malignant neoplasm [facility] Scheduled Test 12:19:04 of colon (procedure) [code = [facility] 978136590] [facility] Future 2021-01-20 Screening for malignant neoplasm [facility] Scheduled Test 12:19:04 of breast (procedure) [code = [facility] [id number]] [facility] Future 2021-01-20 TETANUS SHOT (ADULT) [code = [facility] Scheduled Test 12:19:04 TETANUS SHOT (ADULT)] [facility] Future 2021-01-20 Hepatitis C screening (procedure) [facility] Scheduled Test 12:19:04 [code = 103512628] [facility] Future 2021-01-20 Human immunodeficiency virus [facility] Scheduled Test 12:19:04 screening (procedure) [code = [facility] 911416045] [facility] Future 2021-01-20 Screening for malignant neoplasm [facility] Scheduled Test 12:19:04 of cervix (procedure) [code = [facility] 347288203] [facility] Future 2021-01-20 MEDICARE AWV (Initial) [code = [facility] Scheduled Test 12:19:04 MEDICARE AWV (Initial)] [facility] Future 2021-01-20 BMI FOLLOW UP PLAN [code = BMI [facility] Scheduled Test 12:19:04 FOLLOW UP PLAN] [facility] Future 2021-01-20 FLU VACCINE > 6 MONTHS [code = FLU [facility] Scheduled Test 12:19:04 VACCINE > 6 MONTHS] [facility] Future 2021-01-20 COVID-19 Vaccine (2 - Moderna [facility] Scheduled Test 12:19:04 2-dose series) [code = COVID-19 College of Vaccine (2 - Moderna 2-dose Medicine series)] Future 2021-01-20 ZOSTER VACCINE (1 of 2) [code = [facility] Scheduled Test 12:19:04 ZOSTER VACCINE (1 of 2)] [facility] 2021-01-20 Screening for malignant neoplasm [facility] Scheduled Test 12:19:04 of colon (procedure) [code = [facility] 629546645] [facility] Future 2021-01-19 CULTURE, URINE/SENSITIVITY ON ALL [facility] Scheduled Test 14:59:42 [code = 82874-0] [facility] Future 2021-01-19 CULTURE, URINE/SENSITIVITY ON ALL [facility] Scheduled Test 14:59:42 [code = 67918-2] [facility] Future 2020-12-30 INFLUENZA VACCINE (#1) [code = [facility] Scheduled Test 00:00:00 INFLUENZA VACCINE (#1)] [facility] Future 2020-12-30 INFLUENZA VACCINE (#1) [code = [facility] Scheduled Test 00:00:00 INFLUENZA VACCINE (#1)] [facility] Future 2020-05-02 MEDICARE ANNUAL WELLNESS (YEAR [address] [facility] Scheduled Test 00:00:00 or FIRST YEAR if no IPPE) [code = Medical MEDICARE ANNUAL WELLNESS (YEAR 2 Center or FIRST YEAR if no IPPE)] Future 2016-09-13 Lipid panel (procedure) [code = [facility] Scheduled Test 00:00:00 [id number]] [facility] 2016-09-13 Lipid panel (procedure) [code = [facility] Scheduled Test 00:00:00 [id number]] [facility] 2016-09-13 Lipid panel (procedure) [code = [facility] Scheduled Test 00:00:00 [id number]] [facility] 1992-09-13 Screening for malignant neoplasm [facility] Scheduled Test 00:00:00 of cervix (procedure) [code = Medical 817189977] [facility] 1992-09-13 Screening for malignant neoplasm [facility] Scheduled Test 00:00:00 of cervix (procedure) [code = Medical 428817776] [facility] 1992-09-13 Screening for malignant neoplasm [facility] Scheduled Test 00:00:00 of cervix (procedure) [code = Medical 775554031] [facility] 1990-09-13 DTAP/TDAP/TD VACCINES (1 - Tdap) [facility] Scheduled Test 00:00:00 [code = DTAP/TDAP/TD VACCINES (1 - Medical Tdap)] [facility] 1990-09-13 DTAP/TDAP/TD VACCINES (1 - Tdap) [facility] Scheduled Test 00:00:00 [code = DTAP/TDAP/TD VACCINES (1 - Medical Tdap)] [facility] 1990-09-13 DTAP/TDAP/TD VACCINES (1 - Tdap) [facility] Scheduled Test 00:00:00 [code = DTAP/TDAP/TD VACCINES (1 - Medical Tdap)] [facility] 1989-09-13 HEPATITIS C SCREENING [code = [facility] Scheduled Test 00:00:00 HEPATITIS C SCREENING] [facility] 1989-09-13 HEPATITIS C SCREENING [code = [facility] Scheduled Test 00:00:00 HEPATITIS C SCREENING] [facility] 1989-09-13 HEPATITIS C SCREENING [code = [facility] Scheduled Test 00:00:00 HEPATITIS C SCREENING] [facility] 1977-09-13 PNEUMOCOCCAL VACCINE 0-64 YRS ([address] [facility] Scheduled Test 00:00:00 of 2 - PPSV23) [code = [facility] PNEUMOCOCCAL VACCINE 0-64 YRS (1 Center of 2 - PPSV23)] Future 1977-09-13 PNEUMOCOCCAL VACCINE 0-64 YRS ([address] [facility] Scheduled Test 00:00:00 of 2 - PPSV23) [code = Med ical PNEUMOCOCCAL VACCINE 0-64 YRS (1 Center of 2 - PPSV23)] Future 1977-09-13 PNEUMOCOCCAL VACCINE 0-64 YRS (1 - [facility] Scheduled Test 00:00:00 PCV) [code = PNEUMOCOCCAL VACCINE Medical 0-64 YRS (1 - PCV)] [facility] 1971 Screening for malignant neoplasm [facility] Scheduled Test 00:00:00 of breast (procedure) [code = Medical 816874933] [place] Future [address] Colonography (combo) [code = CT [facility] Scheduled Test 00:00:00 Colonography (combo)] [facility] Screening for malignant neoplasm [facility] Scheduled Test 00:00:00 of colon (procedure) [code = Medical 091951059] [facility] 1970 Screening for malignant neoplasm [facility] Scheduled Test 00:00:00 of colon (procedure) [code = Medical 858355806] [facility] 1971 Sigmoidoscopy [code = [facility] Scheduled Test 00:00:00 Sigmoidoscopy] [facility] Future MAMMOGRAM ANNUAL [code = MAMMOGRAM [facility] Scheduled Test ANNUAL] [facility] Future MEDICARE AWV [code = MEDICARE AWV] [facility] Scheduled Test [facility] Future TETANUS SHOT (ADULT) [code = [facility] Scheduled Test TETANUS SHOT (ADULT)] [facility] Future BMI FOLLOW UP PLAN [code = BMI [facility] Scheduled Test FOLLOW UP PLAN] [facility] Future HIV SCREENING [code = HIV [facility] Scheduled Test SCREENING] [facility] Future CERVICAL CANCER SCREENING 4 YEAR [facility] Scheduled Test FOLLOW UP [code = CERVICAL CANCER College SCREENING 3 YEAR FOLLOW UP] [facility] Future FLU VACCINE > 6 MONTHS [code = FLU [facility] Scheduled Test VACCINE > 6 MONTHS] [facility] Future CBC W/AUTO DIFF WITH PLATELETS Ordered: [facility] Scheduled Test [code = 62883-0] 06/12/2019 [facility] Future CELIAC DISEASE PANEL [code = Ordered: [facility] Scheduled Test 56147-9] 06/12/2019 [facility] Future VITAMIN B12 [code = 2132-9] Ordered: [facility] Scheduled Test 06/12/2019 [facility] Future VITAMIN D 25 HYDROXY [code = Ordered: [facility] Scheduled Test 1988-] 06/12/2019 [facility] Future CALCIUM [code = 56894-0] Ordered: [place] [facility] Scheduled Test 06/12/2019 [facility] Future COMPREHENSIVE METABOLIC PANEL Ordered: [facility] Scheduled Test [code = 94184-5] 06/12/2019 [facility] Future C-REACTIVE PROTEIN [code = 1988-5] Ordere d: [facility] Scheduled Test 06/12/2019 [facility] Future MAGNESIUM [code = 81923-6] Ordered: [facility] Scheduled Test 06/12/2019 [facility] Future IRON, TIBC AND FERRITIN PANEL Ordered: [facility] Scheduled Test [code = NOCPT] 06/12/2019 [facility] Future CLOSTRIDIUM DIFFICILE TOXIN/GDH Ordered: [facility] Scheduled Test WITH REFLEX TO PCR [code = 06/12/2019 [facility] 52876-0] [facility] Future STELARA(R)USTEKINUMAB [code = Ordered: [facility] Scheduled Test NOCPT] 06/12/2019 [facility] Future MAMMOGRAM ANNUAL [code = MAMMOGRAM [facility] Scheduled Test ANNUAL] [facility] Future TETANUS SHOT (ADULT) [code = [facility] Scheduled Test TETANUS SHOT (ADULT)] [facility] Future BMI FOLLOW UP PLAN [code = BMI [facility] Scheduled Test FOLLOW UP PLAN] [facility] Future HIV SCREENING [code = HIV [facility] Scheduled Test SCREENING] [facility] Future CERVICAL CANCER SCREENING 4 YEAR [facility] Scheduled Test FOLLOW UP [code = CERVICAL CANCER College of SCREENING 3 YEAR FOLLOW UP] [facility] Future MEDICARE AWV (Initial) [code = [facility] Scheduled Test MEDICARE AWV (Initial)] [facility] Future CLOSTRIDIUM DIFFICILE TOXIN/GDH Ordered: [facility] Scheduled Test WITH REFLEX TO PCR [code = 06/19/2019 [facility] 69545-1] [facility] Future CULTURE, STOOL [code = 625-4] Ordered: [facility] Scheduled Test 06/19/2019 [facility] Future CALPROTECTIN, FECAL [code = Ordered: [facility] Scheduled Test 13842-7] 06/19/2019 [facility] Future MAMMOGRAM ANNUAL [code = MAMMOGRAM [facility] Scheduled Test ANNUAL] [facility] Future TETANUS SHOT (ADULT) [code = [facility] Scheduled Test TETANUS SHOT (ADULT)] [facility] Future BMI FOLLOW UP PLAN [code = BMI [facility] Scheduled Test FOLLOW UP PLAN] [facility] Future HIV SCREENING [code = HIV [facility] Scheduled Test SCREENING] [facility] Future CERVICAL CANCER SCREENING 4 YEAR [facility] Scheduled Test FOLLOW UP [code = CERVICAL CANCER College of SCREENING 3 YEAR FOLLOW UP] Medicine Future MEDICARE AWV (Initial) [code = [facility] Scheduled Test MEDICARE AWV (Initial)] [facility] Future MAMMOGRAM ANNUAL [code = MAMMOGRAM [facility] Scheduled Test ANNUAL] [facility] Future TETANUS SHOT (ADULT) [code = [facility] Scheduled Test TETANUS SHOT (ADULT)] [facility] Future BMI FOLLOW UP PLAN [code = BMI [facility] Scheduled Test FOLLOW UP PLAN] [facility] Future HIV SCREENING [code = HIV [facility] Scheduled Test SCREENING] [facility] Future CERVICAL CANCER SCREENING 4 YEAR [facility] Scheduled Test FOLLOW UP [code = CERVICAL CANCER College of SCREENING 3 YEAR FOLLOW UP] [facility] Future MEDICARE AWV (Initial) [code = [facility] Scheduled Test MEDICARE AWV (Initial)] [facility] Future [place] LO FLEX L1-BELOW L5 PRE OTS Ordered: [facility] Scheduled Test [code = L0625] 07/11/2019 [facility] Future MAMMOGRAM ANNUAL [code = MAMMOGRAM [facility] Scheduled Test ANNUAL] [facility] Future TETANUS SHOT (ADULT) [code = [facility] Scheduled Test TETANUS SHOT (ADULT)] [facility] Future BMI FOLLOW UP PLAN [code = BMI [facility] Scheduled Test FOLLOW UP PLAN] [facility] Future HIV SCREENING [code = HIV [facility] Scheduled Test SCREENING] [facility] Future CERVICAL CANCER SCREENING 4 YEAR [facility] Scheduled Test FOLLOW UP [code = CERVICAL CANCER College of SCREENING 4 YEAR FOLLOW UP] [facility] Future MEDICARE AWV (Initial) [code = [facility] Scheduled Test MEDICARE AWV (Initial)] Co llege [facility] Future ORT - XR KNEE BILAT 4V (CHARGE Ordered: [facility] Scheduled Test ONLY) [code = 56258] 12/17/2019 [facility] Future MAMMOGRAM ANNUAL [code = MAMMOGRAM [facility] Scheduled Test ANNUAL] [facility] Future TETANUS SHOT (ADULT) [code = [facility] Scheduled Test TETANUS SHOT (ADULT)] Ronny ege [facility] Future HIV SCREENING [code = HIV [facility] Scheduled Test SCREENING] [facility] Future CERVICAL CANCER SCREENING 4 YEAR [facility] Scheduled Test FOLLOW UP [code = CERVICAL CANCER College of SCREENING 4 YEAR FOLLOW UP] Medicine Future MEDICARE AWV (Initial) [code = [facility] Scheduled Test MEDICARE AWV (Initial)] Co llege of [facility] Future FLU VACCINE > 6 MONTHS [code = FLU [facility] Scheduled Test VACCINE > 6 MONTHS] [facility] Future BMI FOLLOW UP PLAN [code = BMI [facility] Scheduled Test FOLLOW UP PLAN] [facility] Future ZOSTER VACCINE (1 of 2) [code = [facility] Scheduled Test ZOSTER VACCINE (1 of 2)] [facility] Future Upcoming [facility] Scheduled Test EncountersDateTypeSpecialtyCare [place] BujtQxbwoapnhwt53/08/2019Office VisitRichardson Knapp MD[address], [address] [place] [address] [phone] (Fax)Health MaintenanceDue DateLast DoneCommentsMAMMOGRAM [id number] 1970MEDICARE AWV1971TETANUS SHOT (ADULT)09/13/1986BMI FOLLOW UP PLAN09/13/1989HIV WCBHHBLXJ64/16/1990CERVICAL CANCER SCREENING 4 YEAR FOLLOW UP09/13/1992FLU VACCINE > 6 AOOMUD2511/29/2018documented as of this encounter [code = Upcoming EncountersDateTypeSpecialtyBayhealth [facility] [place] UekvIoypieukjzm55/08/2019Office VisitRichardson Knapp MD[address], [address] [place] [address] [phone] (Fax)Health MaintenanceDue DateLast DoneCommentsMAMMOGRAM [id number] 1971MEDICARE AWV1971TETANUS SHOT (ADULT)09/13/1986BMI FOLLOW UP PLAN09/13/1989HIV XZNTRDZZV55/16/1990CERVICAL CANCER SCREENING 3 YEAR FOLLOW UP09/13/1992FLU VACCINE > 6 IAQXGH0611/29/2018documented as of this encounter] Future FLU VACCINE > 6 MONTHS [code = FLU [facility] Scheduled Test VACCINE > 6 MONTHS] Sony espinosa Future MEDICARE AWV (Initial) [code = [facility] Scheduled Test MEDICARE AWV (Initial)] Eric rmann Future Screening for malignant neoplasm [facility] Scheduled Test of breast (procedure) [code = Maruks 415620303] Future CERVICAL CANCER SCREENING 3 YEAR [facility] Scheduled Test FOLLOW UP [code = CERVICAL CANCER [place] SCREENING 4 YEAR FOLLOW UP] Future Screening for malignant neoplasm [facility] Scheduled Test of cervix (procedure) [code = Markus 551134769] Future DTaP,Tdap,and Td Vaccines (1 - [facility] Scheduled Test Tdap) [code = DTaP,Tdap,and Td Markus Vaccines (1 - Tdap)] Future HIV SCREENING [code = HIV Me morial Scheduled Test SCREENING] [place] Future TETANUS SHOT (ADULT) [code = [facility] Scheduled Test TETANUS SHOT (ADULT)] Herm chelsey Future DTaP,Tdap,and Td Vaccines (1 - [facility] Scheduled Test Tdap) [code = DTaP,Tdap,and Td [place] Vaccines (1 - Tdap)] Future PNEUMOCOCCAL 0-64 [...] Test of colon (procedure) [code = Markus 537954113] Future Depression Screening [code = [facility] Scheduled Test Depression Screening] Herm chelsey Future BMI FOLLOW UP PLAN [code = BMI [facility] Scheduled Test FOLLOW UP PLAN] Markus Future CT ABD/PELVIS ENTEROGRAPHY W [code [facility] Scheduled Test = 30871-3] [place] Future INFLUENZA VACCINE (#1) [code = [facility] Scheduled Test INFLUENZA VACCINE (#1)] He rmann Future ORT - XR KNEE BILAT 4V (CHARGE [facility] Scheduled Test ONLY) [code = 38238] Prachi nn Future FLU VACCINE > 6 MONTHS [code = FLU [facility] Scheduled Test VACCINE > 6 MONTHS] Sony n Future NV LO FLEX L1-BELOW L5 PRE OTS [facility] Scheduled Test [code = L0625] [place] Future CLOSTRIDIUM DIFFICILE TOXIN/GDH [facility] Scheduled Test WITH REFLEX TO PCR [code = [place] 72475-3] Future CULTURE, STOOL [code = 625-4] [facility] Scheduled Test [place] Future CALPROTECTIN, FECAL [code = [facility] Scheduled Test 61126-1] Markus Future CBC W/AUTO DIFF WITH PLATELETS [facility] Scheduled Test [code = 69120-0] [place] Future CELIAC DISEASE PANEL [code = [facility] Scheduled Test 93549-2] [place] Future VITAMIN B12 [code = 2132-9] [facility] Scheduled Test Markus Future VITAMIN D 25 HYDROXY [code = [facility] Scheduled Test 1988-] Markus Future CALCIUM [code = 17427-8] Mem orial Scheduled Test Markus Future COMPREHENSIVE METABOLIC PANEL [facility] Scheduled Test [code = 50850-8] Markus Future C-REACTIVE PROTEIN [code = 1987-5] [facility] Scheduled Test Markus Future MAGNESIUM [code = 75971-6] M emorial Scheduled Test [place] Future IRON, TIBC AND FERRITIN PANEL [facility] Scheduled Test [code = NOCPT] [place] Future CLOSTRIDIUM DIFFICILE TOXIN/GDH [facility] Scheduled Test WITH REFLEX TO PCR [code = [place] 11561-4] Future STELARA(R)USTEKINUMAB [code = [facility] Scheduled Test NOCPT] [place] Future Upcoming [facility] Scheduled Test EncountersDateTypeSpecialtyCare [place] FgfkIvgvvzrgacn25/08/2019Office VisitRichardson Knapp MD[address], [address] [place] [address] [phone] (Fax)Health MaintenanceDue DateLast DoneCommentsMAMMOGRAM [id number] 1971MEDICARE AWV1971TETANUS SHOT (ADULT)09/13/1986BMI FOLLOW UP PLAN09/13/1989HIV FIBXVMGBD48/16/1990CERVICAL CANCER SCREENING 3 YEAR FOLLOW UP09/13/1992FLU VACCINE > 6 BXWAVR7511/29/2018documented as of this encounter [code = Upcoming EncountersDateTypeSpecialtyCare NumqHnomcjruoym31/08/2019Office VisitRichardson Knapp MD[address], [address] [place] [address] [phone] (Fax)Health MaintenanceDue DateLast DoneCommentsMAMMOGRAM [id number] 1971MEDICARE AWV1971TETANUS SHOT (ADULT)09/13/1986BMI FOLLOW UP PLAN09/13/1989HIV XAXDKEWYO87/16/1990CERVICAL CANCER SCREENING 3 YEAR FOLLOW UP09/13/1992FLU VACCINE > 6 MRTMBQ9611/29/2018documented as of this encounter] Future FLU VACCINE > 6 MONTHS [code = FLU [facility] Scheduled Test VACCINE > 6 MONTHS] Sony espinosa Future MEDICARE AWV (Initial) [code = [facility] Scheduled Test MEDICARE AWV (Initial)] He rmann Future Screening for malignant neoplasm [facility] Scheduled Test of breast (procedure) [code = [place] 913024934] Future CERVICAL CANCER SCREENING 3 YEAR [facility] Scheduled Test FOLLOW UP [code = CERVICAL CANCER Markus SCREENING 3 YEAR FOLLOW UP] Future Screening for malignant neoplasm [facility] Scheduled Test of cervix (procedure) [code = Markus 786994864] Future DTaP,Tdap,and Td Vaccines (1 - [facility] Scheduled Test Tdap) [code = DTaP,Tdap,and Td Markus Vaccines (1 - Tdap)] Future HIV SCREENING [code = HIV Me morial Scheduled Test SCREENING] [place] Future TETANUS SHOT (ADULT) [code = [facility] Scheduled Test TETANUS SHOT (ADULT)] Herm chelsey Future DTaP,Tdap,and Td Vaccines (1 - [facility] Scheduled Test Tdap) [code = DTaP,Tdap,and Td [place] Vaccines (1 - Tdap)] Future PNEUMOCOCCAL 0-64 YEARS COMBINED [facility] Scheduled Test SERIES (1 of 1 - PPSV23) [code = Maruks PNEUMOCOCCAL 0-64 YEARS COMBINED SERIES (1 of 1 - PPSV23)] Future MAMMOGRAM ANNUAL [code = MAMMOGRAM [facility] Scheduled Test ANNUAL] Markus Future CT ABD/PELVIS ENTEROGRAPHY W [code 1 Occu rrences [facility] Scheduled Test = 66431-0] starting College of 06/12/2019 Medicine until 01/11/2020 Instructions [facility] Instructions [facility] Health Outreach Program Encounters Start End Encounter Admission Attending Care Care Encounter Source Date/Time Date/Time Type Type Clinicians Facility Department ID 2021-07-23 Outpatient [facility] [id number] [place] 23:40:06 [facility] 2021-07-20 Outpatient [facility] Common 16:53:01 [facility] 2021-07-14 Outpatient [facility] Common 08:11:03 [facility] 2021-07-07 Outpatient [facility] Common 16:08:01 [facility] 2021-02-03 Outpatient NISH [facility] Surgery [id number] [facility] 03:19:49 APRIL 2016-11-04 Inpatient C NARESH CASH RAD [id number] [facility] 09:30:00 [facility] 2021-12-23 2021-12-23 Outpatient NORMA SEYMOUR SLEMarko [id number] [facility] 00:00:00 00:00:00 GRACIE 2021-12-15 2021-12-15 Outside Greg, [facility] [id number] [facility] [address] 00:00:00 00:00:00 Orders [facility] 2021-12-14 2021-12-14 [facility] [id number] Common 00:00:00 00:00:00 [facility] 2021-12-10 2021-12-10 Outpatient JANI ALEJANDRO [facility] [id number] [facility] 08:57:30 09:44:07 Nely 2021-12-08 2021-12-08 Outpatient Vivek [facility] [id number] [place] 00:00:00 00:00:00 0810 [facility] 2021-11-15 2021-11-15 Outpatient RICK VILLA 839 [id number] [place] 09:52:00 09:52:00 H 0718 [facility] 2021-10-25 2021-10-25 Outpatient [facility] [id number] Memoria 05:00:00 12:30:00 ELLY [facility] 2021-10-04 2021-10-04 [facility] [place] - [address]- 2021 [place] 00:00:00 00:00:00 [place] 0606 jemima Wang MD: Christianity Epi scop 1700 [facility] [address] Cornelius cohen , Ph. [phone] 2021-09-24 [place] - [address] 22 [place] 00:00:00 00:00:00 Anahy Nice 0527 Rudi Long Medical CABLE SUPERVISOR: [address], [place] [address] , Ph. 2021-09-21 2021-09-21 Outpatient [facility] [id number] [facility] 10:54:21 11:23:41 Driss Medicin e 2021-09-13 2021-09-13 Outpatient [facility] 83 [place] 10:03:00 10:03:00 H 0516 [facility] 2021-09-08 2021-09-10 [facility] [id number] 00:20:00 17:56:00 Encounter Javon [facility] 2021-09-08 2021-09-10 Outpatient JAVON [facility] SLE Surgery [id number] [facility] 00:20:00 17:56:00 2021-09-08 2021-09-08 Travel [facility] [id number] [facility] 00:00:00 00:00:00 [facility] 2021-09-07 2021-09-07 Out[facility] [id number] [place] 04:42:00 04:42:00 H 0510 [facility] 2021-09-01 2021-09-01 [facility] [id number] 12:30:30 23:59:00 Encounter Andre [facility] 2021-09-01 2021-09-01 Outpatient [facility] [id number] SLE 12:30:30 23:59:00 ANDRE 2021-08-26 2021-08-26 [facility] [id number] 00:00:00 00:00:00 Orders Andre [facility] 2021-08-23 2021-08-23 Outpatient ARMANDO MOCK [facility] [id number] [facility] 15:54:39 16:21:28 APRIL Crawford e of Medicin e 2021-07-28 2021-07-28 Outpatient Nieves_Gustavo MM[facility] [id number] [place] 08:07:00 08:07:00 0330 [facility] 2021-07-24 2021-07-24 [place] - [address]-73 22 [place] 00:00:00 00:00:00 Anahy Nice 0326 [facility] Medical CABLE SUPERVISOR: [address] [facility] [address], [place] [address] , Ph. 2021-07-14 2021-07-14 ambulatory [facility] [id number] [facility] 00:00:00 00:00:00 [facility] 2021-07-12 2021-07-12 [place] - [address]-74 22 [place] 00:00:00 00:00:00 Anahy Alonzo4 ysabel [facility] Medical CABLE SUPERVISOR: [address] [address], [place] [address] , Ph. 2021-07-05 2021-07-07 [facility] Americo Purcell [facility] [id number] [facility] 04:16:00 14:04:00 Encounter [facility] 2021-07-05 2021-07-07 Inpatient [facility] Internal [id number] SLE 04:16:00 14:04:00 Med 2021-07-05 2021-07-05 Travel [facility] [id number] [facility] 00:00:00 00:00:00 [facility] 2021-07-02 2021-07-02 Outpatient EL NISH [facility] Surgery [id number] SLE 10:43:00 14:08:00 APRIL 2021-07-02 2021-07-02 Hospital Nish [facility] [id number] 10:43:00 14:08:00 Encounter [facility] 2021-07-02 2021-07-02 Anesthesia Emanuel, [facility] [id number] 12:26:00 13:02:00 Event Romi [facility] 2021-07-02 2021-07-02 Surgery Nish, [facility] [id number] 12:30:00 13:00:00 [facility] 2021-07-02 2021-07-02 Outpatient ARMANDO MOCK [facility] [id number] [facility] 10:19:32 10:19:32 [facility] Ty e of Medicin e 2021-07-02 2021-07-02 Travel [facility] [id number] [facility] 00:00:00 00:00:00 [facility] 2021-07-01 2021-07-01 Outpatient EL SLEH SLE [id number] [facility] 10:58:51 23:59:00 2021-07-01 2021-07-01 [facility] [id number] 09:20:00 23:59:00 Encounter [facility] 2021-07-01 2021-07-01 Travel [facility] [id number] [facility] 00:00:00 00:00:00 [facility] 2021-06-28 2021-06-28 V[place] [facility] - [address]- 2021 [place] 00:00:00 00:00:00 Jer Saldivar 0228 jemima Wang MD: Christianity Epi scop 1700 [facility] ElyH [facility] [address] [facility] noel , Ph. [phone] 2021-06-24 Merari Doyle [facility] [place] - [address] 22 [place] 00:00:00 00:00:00 Anahy Nice 022Farheen Long, [facility] Medical CABLE SUPERVISOR: [address], [place] [address] , Ph. 2021-06-18 2021-06-18 Outpatient ARMANDO FIELDS [facility] [id number] [facility] 10:20:57 11:15:16 FALGUNI maddox of Medicin e 2021-06-08 2021-06-08 Outpatient Hawkins_M MMG [facility] [id number] -2021 [place] 04:51:00 04:51:00 0208 [facility] 2021-06-03 2021-06-03 Outpatient Hawkins_M MMG [facility] [id number] [place] 08:52:00 08:52:00 0203 [facility] 2021-05-25 2021-05-25 Office Opsaturnino, 1.2.840.1 [id number] Methodi 14:45:00 15:13:18 Visit Mauricio Gutierrez 87019.1.1 769 s t 3.430.2.7 Hospit a .3.971590 l .8 2021-05-25 2021-05-25 Office Do, 1.2.840.1 [id number] Methodi 14:45:00 15:13:18 Visit Mauricio Maddox. 27325.1.1 769 s t 3.430.2.7 Hospit a .3.704469 l .8 2021-05-25 2021-05-25 Travel 1.2.840.1 1.2.523.462 [id number] Methodi 00:00:00 00:00:[address] 3.430.2.7 0.2.7.3.698 Ho spita .3.699728 084.8 l .8 2021-05-25 2021-05-25 Travel 1.2.840.1 1.2.372.383 [id number] [id number] Methodi 00:00:00 00:00:[address] 3.430.2.7 0.2.7.3.698 Ho spita .3.559442 084.8 l .8 2021-05-13 2021-05-13 Outpatient Vivek MMG MMG [id number] [place] 01:55:00 01:55:00 0113 Medical Group 2021-05-10 2021-05-10 [facility], 1.2.840.1 [id number] Methodi 08:30:00 16:29:00 Encounter Mauricio E. 68628.1.[address] 3.430.2.7 Hospit a .3.757821 l .8 2021-05-10 2021-05-10 [facility], 1.2.840.1 [id number] Methodi 08:30:00 16:29:00 Encounter Mauricio E. 73578.1.[address] 3.430.2.7 Hospit a .3.338896 l .8 2021-05-10 2021-05-10 Surgery [facility], 1.2.840.1 [id number] Methodi 09:55:00 12:25:00 Mauricio E. 15044.1.1 608 s t 3.430.2.7 Hospit a .3.107857 l .8 2021-05-10 2021-05-10 Surgery [facility], 1.2.840.1 [id number] Methodi 09:55:00 12:25:00 Mauricio E. 63160.1.1 608 s t 3.430.2.7 Hospit a .3.479082 l .8 2021-05-10 2021-05-10 Anesthesia Terri Forbes A. 1.2.840.1 10 [id number] Methodi 09:41:00 11:23:00 Event Anuja Drake 31317.1.[address] 3.430.2.7 Hospit a .3.920397 l .8 2021-05-10 2021-05-10 Anesthesia Terri Forbes A. 1.2.840.1 10 [id number] Methodi 09:41:00 11:23:00 Event Anuja Drake 78536.1.[address] 3.430.2.7 Hospit a .3.142948 l .8 2021-05-06 2021-05-06 Pre-Admiss Oppermann, 1.2.840.1 [id number] Methodi 11:00:00 12:00:00 ion Mauricio E. 38083.1.1 520 s t Testing 3.430.2.7 Hospit a .3.545245 l .8 2021-05-06 2021-05-06 Pre-Admiss Oppermann, 1.2.840.1 [id number] Methodi 11:00:00 12:00:00 ion Mauricio E. 71790.1.1 520 s t Testing 3.430.2.7 Hospit a .3.065225 l .8 2021-05-06 2021-05-06 Outpatient Vivek [facility] [id number] [place] 02:54:00 02:54:00 0106 Medical Group 2021-05-06 2021-05-06 Travel 1.2.840.1 1.2.084.709 [id number] Methodi 00:00:00 00:00:[address] 3.430.2.7 0.2.7.3.698 Ho spita .3.872321 084.8 l .8 2021-05-06 2021-05-06 Travel 1.2.840.1 1.2.554.388 2396 [id number] Methodi 00:00:00 00:00:[address] 3.430.2.7 0.2.7.3.698 Ho spita .3.453317 084.8 l .8 2021-05-04 2021-05-04 Outpatient NORMA BYRD SLE [id number] [facility] 07:13:37 23:59:00 ELLY 2021-05-04 2021-05-04 [facility] Elly Dodson [facility] [id number] [facility] 07:13:37 23:59:00 Encounter 1.5, [facility] 2021-05-04 2021-05-04 [facility] Elly Dodson [facility] [id number] 07:13:37 23:59:00 Encounter 1.5, [facility] 2021-05-03 2021-05-03 Outpatient EL MEÑOTEOR, SLEH SLEH [id number] [facility] 08:45:33 23:59:00 [facility] 2021-05-03 2021-05-03 [facility], [facility] [id number] 08:45:33 23:59:00 Encounter [facility] 2021-05-03 2021-05-03 [facility] [id number] 08:45:33 23:59:00 Encounter [facility] 2021-05-03 2021-05-03 Outside [facility] [id number] 00:00:00 00:00:[address] [facility] 2021-05-03 2021-05-03 Outside [facility] [id number] 00:00:00 00:00:[address] [facility] 2021-04-30 2021-04-30 Outpatient [facility] [id number] -2020 [place] 10:22:00 10:22:00 1231 ysabel [facility] 2021-04-29 2021-04-29 Outpatient EL SLE SLEH [id number] [facility]H 00:00:00 00:00:00 2021-04-28 2021-04-28 Merari Doyle [facility] [place] [place] - [address] 21 [place] 00:00:00 00:00:00 Anahy Nice 122Rudi Saldana Medical CABLE SUPERVISOR: [address] [address] , Ph. 2021-04-22 2021-04-22 Merari Doyle [facility] [place] [place] - [address] 21 [place] 00:00:00 00:00:00 [place] 1223 [facility] CABLE SUPERVISOR: [address], [place] [address] , Ph. 2021-04-16 2021-04-16 Outpatient Vivek [facility] [id number] -2020 [place] 12:39:00 12:39:00 1217 [facility] 2021-04-15 2021-04-15 Outpatient ARMANDO MOCK [facility] [id number] [facility] 09:44:17 10:29:41 APRIL maddox of Medicin e 2021-04-13 2021-04-13 Orders [facility] [id number] 00:00:00 00:00:00 Only [facility] 2021-04-13 2021-04-13 Orders [facility] [id number] 00:00:00 00:00:00 Only [facility] 2021-03-31 2021-03-31 Travel 1.2.840.1 1.2.726.337 [id number] [id number] Methodi 00:00:00 00:00:[address] 3.430.2.7 0.2.7.3.698 Ho spita .3.297660 084.8 l .8 2021-03-31 2021-03-31 Travel 1.2.840.1 1.2.836.076 9663 [id number] Methodi 00:00:00 00:00:[address] 3.430.2.7 0.2.7.3.698 Ho spita .3.863855 084.8 l .8 2021-03-30 2021-03-30 Prep for Jerry, 1.2.840.1 [id number] Methodi 00:00:00 00:00:00 Surgery Muriel P 06457.1.[address] 3.430.2.7 Hospit a .3.096594 l .8 2021-03-30 2021-03-30 Prep for Jerry, 1.2.840.1 [id number] Methodi 00:00:00 00:00:00 Surgery Muriel P 14172.1.[address] 3.430.2.7 Hospit a .3.177877 l .8 2021-03-29 2021-03-29 Health system [id number] [place] 00:00:00 00:00:00 Jer Saldivar 1129 d jocelyn Wang MD: Christianity Epi scop 1700 [facility] Lacy [facility] [address] [facility] , Ph. [phone] 2021-03-23 Outside [facility] [id number] 00:00:00 00:00:00 Orders [facility] 2021-03-23 2021-03-23 Outside [facility] [id number] 00:00:00 00:00:00 Orders [facility] 2021-03-17 2021-03-17 Outpatient Nieves_Gustavo [facility] [id number] [place] 11:17:00 11:17:00 1117 Medical Group 2021-03-12 2021-03-12 Office SONA Lopez 1.2.840.114 [id number] [facility] 09:30:00 12:19:22 Visit Oyebunmi AMBULATOR 350.1.13.21 College Y 0.2.7.2.686 of 384.0996224 Medi marlene 355 e 2021-03-11 2021-03-11 Office Do, 1.2.840.1 [id number] Methodi 14:30:00 15:38:25 Visit Mauricio Gutierrez 48822.1.1 490 s t 3.430.2.7 Hospit a .3.232068 l .8 2021-03-11 2021-03-11 Office Do, 1.2.840.1 [id number] Methodi 14:30:00 15:38:25 Visit Mauricio Gutierrez 22675.1.1 490 s t 3.430.2.7 Hospit a .3.842578 l .8 2021-03-11 2021-03-11 Travel 1.2.840.1 1.2.133.704 7985 [id number] Methodi 00:00:00 00:00:[address] 3.430.2.7 0.2.7.3.698 Ho spita .3.459811 084.8 l .8 2021-03-11 2021-03-11 Travel 1.2.840.1 1.2.646.554 3962 [id number] Methodi 00:00:00 00:00:[address] 3.430.2.7 0.2.7.3.698 Ho spita .3.648006 084.8 l .8 2021-03-04 2021-03-04 Telephone Gilson, 1.2.840.1 [id number] Methodi 00:00:00 00:00:[address] 3.430.2.7 Hospit a .3.226265 l .8 2021-03-04 2021-03-04 Telephone Gilson, 1.2.840.1 [id number] 2099 Methodi 00:00:00 00:00:[address] 3.430.2.7 Hospit a .3.892150 l .8 2021-03-02 2021-03-02 Maxi [facility] [place] - [id number] 21 [facility] 00:00:00 00:00:00 Satnam Dueñas MD: [facility] [address], [place] [address] , Ph. [phone] 2021-02-23 2021-02-23 Outpatient Vivek [facility] [id number] [place] 08:10:00 08:10:00 1026 [facility] 2021-02-19 2021-02-19 Merari Doyle [facility] [place] - [address]13 21 [place] 00:00:00 00:00:00 Anahy Nice 1022 [facility] Medical CABLE SUPERVISOR: 600 [facility] [address], [place] [address] , Ph. 2021-02-02 2021-02-02 Telephone Adryan, 1.2.840.1 [id number] 2 [id number] Methodi 00:00:00 00:00:[address] 3.430.2.7 Hospit a .3.611631 l .8 2021-02-02 2021-02-02 Telephone Adryan 1.2.840.1 [id number] 2 [id number] Methodi 00:00:00 00:00:00 [place] [address] 3.430.2.7 Hospit a .3.247284 l .8 2021-01-25 2021-01-25 Merari Doyle [facility] [place] - [id number] 21 [place] 00:00:00 00:00:00 Anahy Nice 0927 [facility] Medical CABLE SUPERVISOR: 600 [facility] [address], [place] [address] , Ph. 2021-01-19 2021-01-19 Office MALLORYOR [facility] [id number] [place] [address] 13:31:56 16:19:42 Visit LACEYI AMBULATOR 350.1.13.21 College Y 0.2.7.2.686 [id number] [facility] 355 e 2021-01-18 2021-01-18 Outpatient Vivek [facility] [id number] [place] 10:53:00 10:53:00 0920 [facility] 2020-12-28 2020-12-28 [facility] [id number]- 2020 [place] 00:00:00 00:00:00 Jer Saldivar 0830 jemima Wang MD: Christianity Epi scop 1700 [facility] [address] Progr am , Ph. [phone] 2020-12-18 Merari Pickett_M MMG [place] - [address]-44 21 [place] 00:00:00 00:00:00 Anahy Nice 0820 ysabel [facility] Medical CABLE SUPERVISOR: [address] [place] [address], [place] [address] , Ph. 2020-12-15 2020-12-15 [place]patient [place] [id number] -2020 [place] 09:22:00 09:22:00 0817 Medical Group 2020-12-08 2020-12-08 Merari Nieves_M MMG [place] - [address]-47 21 [place] 00:00:00 00:00:00 Anahy Nice 0810 ysabel [facility] Medical CABLE SUPERVISOR: [address] [place] [address], [place] [address] , Ph. 2020-12-05 2020-12-05 Outpatient Hawkins_M MMG MMG [id number] -2020 [place] 12:26:00 12:26:00 0807 Medical Group 2020-12-02 2020-12-02 Outpatient Hawkins_M MMG MMG [id number] -2020 [place] 06:31:00 06:31:00 0804 Medical Group 2020-11-30 2020-11-30 Merarirosemary Pickett_[place] - [address]-12 21 [place] 00:00:00 00:00:00 Anahy Nice 0802 ysabel [facility] Medical CABLE SUPERVISOR: [address] [place] [address] 201, [place] [address] , Ph. 2020-11-20 2020-11-20 [facility] [id number] [address] 08:15:16 23:59:00 Encounter 1.5, [facility] Jase [facility] 2020-11-20 2020-11-20 [facility] [id number] 08:00:00 08:14:00 Encounter 1.5, [facility] Jase Mr [facility] 2020-11-20 2020-11-[address] [facility]H [id number] [facility] 00:00:00 00:00:00 2020-11-20 2020-11-20 Outpatient [facility] SLEH [id number] [facility] 00:00:00 00:00:00 [facility] 2020-11-17 2020-11-17 Merari Doyle [facility] [place] - [address]-22 21 [place] 00:00:00 00:00:00 Anahy Lundberg20 ysabel [facility] Medical CABLE SUPERVISOR: [address] [facility] [address], [place] [address] , Ph. 2020-11-10 2020-11-10 [facility], [facility] [id number] 00:00:00 00:00:00 [facility] 2020-10-26 2020-10-26 Merari Doyle [facility] [place] - [address]-60 21 [place] 00:00:00 00:00:00 Anahy Nice 0628 ysabel [facility] Medical CABLE SUPERVISOR: [address] [facility] [address], [place] [address] , Ph. 2020-10-12 2020-10-12 [place] - [address]-07 21 [place] 00:00:00 00:00:00 Anahy Nice 0614 ysabel [facility] Medical CABLE SUPERVISOR: [address] [facility] [address], [place] [address] , Ph. 2020-10-05 2020-10-05 [facility] [address]- 2020 [place] 00:00:00 00:00:00 Jer ROMJocelyn [place] 0607 jemima Wang MD: Christianity Epi scop 1700 [facility] dirk Lacy [facility] [address] [facility] , Ph. [phone] 2020-09-22 [facility] [id number] -2020 [place] 01:04:00 01:04:00 0525 [facility] 2020-08-18 2020-08-18 Outpatient Hawkins_M MMG [facility] [id number] -2020 [place] 09:58:00 09:58:00 0420 [facility] 2020-08-12 2020-08-12 Merari Nieves_M [place] - [address]-66 21 [place] 00:00:00 00:00:00 Anahy Nice 0414 [facility] CABLE SUPERVISOR: 600 [facility] 201, [place] [address] , Ph. 2020-08-03 2020-08-03 [facility] [id number] Memoria 10:11:00 14:30:00 Surgery r Markus 34 l [facility] 2020-08-03 2020-08-03 Outpatient [facility] [id number] Memoria 05:11:00 09:30:00 ELLY [facility]paricio [facility] 2020-07-31 2020-07-31 Bryan Nicole_[place] - [address]-3 021 [place] 00:00:00 00:00:00 MD: Candi Nice [address] [place] [address], [facility], [facility] [address] , Ph. 2020-07-16 2020-07-16 Outpatient Yan_W MMG MMG [id number] 021 [place] 05:29:00 05:29:00 0318 Medical Group 2020-07-06 2020-07-06 Vj HARRIS MNROBERTO CARLOS [place] - [address]- 2020 [place] 00:00:00 00:00:00 Jer Saldivar 0308 jemima Wang MD: Christianity Epi scop 1700 [facility] Regino [facility] [address] [facility] , Ph. [phone] 2020-06-23 Merari Yan_W MM[place] - [address] [place] 00:00:00 00:00:00 Anahy Nice 0223 [facility] Medical CABLE SUPERVISOR: 600 [facility] [address], [place] [address] , Ph. 2020-06-03 2020-06-03 Outpatient Yan_W MMG MMG [id number] 021 [place] 12:45:00 12:45:00 0203 [facility] 2020-05-27 2020-05-27 Parishdoyle Adams, Yan_[place] - [address]-9 021 [place] 00:00:00 00:00:00 MD: Candi Nice 0127 [facility] [address], [facility], Otolaryngol [facility] [address] , Ph. 2020-05-11 2020-05-12 Day [facility] [id number] 675 [place]oria 15:36:00 01:40:00 Surgery r Markus 33 l [facility] 2020-05-11 2020-05-11 Outpatient [facility] [id number] Memoria 09:36:00 19:40:00 ELLY Aparicio [facility] 2020-05-10 2020-05-10 Outpatient Nieves_Gustavo MMG MMG [id number] -2020 [place] 07:52:00 07:52:00 0110 Medical Group 2020-05-04 2020-05-04 Merari Pickett_[place]ust[place] - [address]-16 21 [place] 00:00:00 00:00:00 Anahy Nice 0104 Rudi Long Medical CABLE SUPERVISOR: [address] [place] [address] [address], [place] [address] , Ph. 2020-04-30 2020-04-30 [place] [id number] [place] 10:21:00 10:21:00 1231 Medical Group 2020-04-28 2020-04-28 Outpatient G_Pappas MMG MMG [id number] [place] 11:28:00 11:28:00 1229 Medical Group 2020-04-26 2020-04-26 Outpatient AMBREEN_FAR MEHOP MEHOP [id number] [place] 03:43:00 03:43:00 PATRICK 1227 [facility] 2020-04-10 2020-04-10 Outpatient G_Pappas MMG [facility] [id number] [place] 05:24:00 05:24:00 1211 Medical Group 2020-04-08 2020-04-08 [facility] AMBREEN_FAR MEHOP [place] - [id number] [place] 00:00:00 00:00:00 Jer Saldivar 1209 jemima Wang MD: Christianity Epi scop 1700 H[facility] - [facility] dirk Lacy [facility] [address] Cornelius , Ph. [phone] 2020-04-07 2020-04-07 Outpatient AMBREEN_FAR MEHOP MNHOP [id number] [place] 12:19:00 12:19:00 PATRICK 1208 [facility] 2020-04-02 2020-04-02 Jake G_Pappas [place] - [address] 0 [place] 00:00:00 00:00:00 Discovery Joan 1203 ysabel MD: [address] [place] [address] - [address], [place] [address] , Ph. [phone] 2020-03-28 2020-03-28 Outpatient Hawkins_M MMG [facility] [id number] [place] 01:09:00 01:09:00 1128 Medical Group 2020-03-18 2020-03-18 Outpatient AMBREEN_FAR MNHOP [facility] [id number] [place] 10:35:00 10:35:00 HANA 1118 [facility] 2020-03-18 2020-03-18 Merari Pickett_[place] - [address]-21 20 [place] 00:00:00 00:00:00 Anahy Nice 1118 [facility] CABLE SUPERVISOR: 600 [facility] 201[place] [address] , Ph. 2020-03-16 2020-03-16 Outpatient Hawkins_M MMG [facility] [id number] [place] 12:25:00 12:25:00 1116 Medical Group 2020-03-09 2020-03-09 Outpatient G_Pappas MMG MM [id number] [place] 04:12:00 04:12:00 1109 Medical Group 2020-03-05 2020-03-05 [place] [id number] [place] 10:15:00 10:15:00 1105 Medical Group 2020-02-11 2020-02-11 Outpatient Yan_W MMG MMG [id number] 020 [place] 11:59:00 11:59:00 1013 Medical Group 2020-02-07 2020-02-07 Outpatient AMBREEN_FAR [facility] 839 [place] 04:36:00 04:36:00 HANA 1009 [facility] 2020-01-29 2020-01-29 Outpatient [facility] [id number] [place] 00:00:00 00:00:00 MARTINEZ [facility] 2020-01-29 2020-01-29 [facility] [id number] [place] 00:00:00 00:00:00 MARTINEZ Crabtree[address] [facility] 2020-01-29 2020-01-29 Outpatient [facility] [id number] [place] 00:00:00 00:00:00 MARTINEZ [address] 2020-01-24 2020-01-24 Merari Krishnamurthy [facility] [place] - [address]-80 20 [place] 00:00:00 00:00:00 Anahy Nice 0925 ysabel Pickett [facility] Rudi CABLE SUPERVISOR: 600 [facility] [address], [place] [address] , Ph. 2020-01-17 2020-01-17 Jake Krishnamurthy [facility] [place] - [address]-30 20 [place] 00:00:00 00:00:00 Discovery Joan 917 ysabel MD: [address] [place] [address] - [address], [place] [address] , Ph. [phone] 2020-01-08 2020-01-08 [facility] [id number] SLE 00:00:00 00:00:00 2019-12-17 2019-12-17 Office nullFlavo [facility] [id number] [place]oria 18:39:48 20:29:29 Visit r [employer] Markus Orthopedic Surgery 2019-12-17 2019-12-17 Office ARMANDO Sandoval 1.2.840.114 [id number] 13:39:48 15:29:29 Visit Mohsen AMBULATOR 350.1.13.21 Y 0.2.7.2.686 [id number] 2019-12-17 2019-12-17 Office ARMANDO Sandoval 1.2.840.[id number] [place] [address] 13:39:48 15:29:29 Visit Mohamajemima AMBULATOR 350.1.13.21 College Y 0.2.7.2.686 of [id number] [facility] marlene 600 e 2019-12-11 2019-12-11 Telephone [facility] [id number] Memoria 00:00:00 00:00:00 r Orthopaedic l Surgery- [facility] 2019-12-11 2019-12-11 Telephone Morley, [facility] 1.2.840.114 [id number] 00:00:00 00:00:00 [facility] 350.1.13.10 Surgical 4.2.7.2.686 [facility] [id number] es 198 [place] 2019-12-09 2019-12-09 [facility] [address]8715- 2019 [place] 00:00:00 00:00:00 Jer NGUYEN [place] 0810 d jocelyn Wang MD: Christianity Epi scop 1700 [facility] dirk Lacy [facility] [address] [facility] , Ph. [phone] 2019-12-08 Outpatient cMcDonald MMG MMG [id number] [place] 10:12:00 10:12:00 0809 Medical Group 2019-12-03 2019-12-03 Shan[place]McDonald [place] - [address]-15 20 [place] 00:00:00 00:00:00 Discovery Erica 0804 ysabel MOTLEY: [address] [place] [address] Group [facility] [address], [place] [address] , Ph. 2019-12-02 2019-12-02 Outpatient cMcDonald MMG MMG [id number] [place] 10:16:00 10:16:00 0803 Medical Group 2019-11-26 2019-11-26 Outpatient Hawkins_M MMG MMG [id number] [place] 12:11:00 12:11:00 0728 Medical Group 2019-11-14 2019-11-14 Outpatient Hawkins_M MMG MMG [id number] [place] 06:53:00 06:53:00 0716 Medical Group 2019-11-12 2019-11-12 Outpatient Hawkins_M MMG MMG [id number] [place] 12:34:00 12:34:00 0714 Medical Group 2019-11-07 2019-11-07 Office [facility] [id number] Memoria 14:07:33 14:22:33 Visit molly Orthopaedic l Surgery- Markus Edwards 2019-11-07 2019-11-07 Office [facility] [id number] 09:07:33 09:22:33 Visit [place] [address].1.13.10 Surgical 4.2.7.2.686 [facility] [id number] es 198 Veronique 2019-11-07 2019-11-07 Outpatient [facility] [id number] Univers 09:00:00 09:00:00 SHANELLE michelle [facility] 2019-11-07 2019-11-07 Merari Pickett_M [place] - [address]-00 20 [place] 00:00:00 00:00:00 Anahy Nice 0709 [facility]abel [facility] CABLE SUPERVISOR: [address] [facility] [address], [place] [address] , Ph. 2019-11-06 2019-11-06 Outpatient Nieves_M MMG [facility] [id number] [place] 02:20:00 02:20:00 0708 [facility] 2019-10-31 2019-10-31 Outpatient [facility] [id number] [place] 00:00:00 00:00:00 LEX 640 Jaleno nathaniel 2019-10-28 2019-10-28 Outpatient [facility] [id number] [place] 00:00:00 00:00:[address] 2019-10-24 2019-10-24 Outpatient Nieves_M MMG [facility] [id number] [place] 11:34:00 11:34:00 0625 [facility] 2019-10-15 2019-10-15 Julia Nieves_[place] - [address]-54 20 [place] 00:00:00 00:00:00 Discovery Zeus 0616 ysabel CABLE SUPERVISOR: 600 [facility] [address] [address] , Ph. 2019-09-19 2019-09-19 Outpatient SLEH SLEH [id number] [facility]H 00:00:00 00:00:00 [id number] 2019-09-13 2019-09-13 Outpatient Nieves_M MMG MMG [id number] [place] 02:27:00 02:27:00 15 [facility] 2019-09-12 2019-09-12 Outpatient EL SLE SLEH [id number] [facility]H 00:00:00 00:00:00 2019-09-12 2019-09-12 Outpatient SLE SLE [id number] SLEH 00:00:00 00:00:00 [id number] 2019-09-10 2019-09-10 Outpatient AMBREEN_FAR MNHOP [facility] [id number] [place] 10:28:00 10:28:00 HANA 0512 [facility] 2019-09-09 2019-09-09 [facility] AMBREEN_FAR [facility] [place] - [id number] [place] 00:00:00 00:00:00 Michaelyandomingo HANA [place] 0511 jemima Wang MD: Christianity Epi scop 1700 [facility] [address] [facility] , Ph. [phone] 2019-09-08 Outpatient AMBREEN_FAR [facility] 839 [place] 12:52:00 12:52:00 HANA 0510 [facility] 2019-08-23 2019-08-23 Merari Pickett_M [facility] [place] - [address]-71 20 [place] 00:00:00 00:00:00 Anahy Nice 0424 ysabel [facility] Medical CABLE SUPERVISOR: [address] [place] [address], [place] [address] , Ph. 2019-07-28 2019-07-28 Outpatient Nieves_M [facility] [id number] [place] 06:03:00 06:03:00 0329 ysabel Medical Group 2019-07-26 2019-07-26 Merari Pickett_M [facility] [place] - [address]-75 20 [place] 00:00:00 00:00:00 Anahy Nice 0327 ysabel [facility] Medical CABLE SUPERVISOR: [address] [place] [address], [place] [address] , Ph. 2019-07-19 2019-07-19 Outpatient [facility] [id number] [place] 00:00:00 00:00:[address] 2019-07-15 2019-07-15 Outpatient [facility] [id number] 020 [place] 06:35:00 06:35:00 0316 Medical Group 2019-07-12 2019-07-12 Outpatient AMBREEN_MAN [place] 839 [place] 01:29:00 01:29:00 HANA 0313 da [facility] 2019-07-12 2019-07-12 Merari A_Byrd [facility] [place] - [address] [place] 00:00:00 00:00:00 Anahy Nice 0313 ysabel [facility] Medical CABLE SUPERVISOR: [address] [facility] [address], [place] [address] , Ph. 2019-07-11 2019-07-11 Office nullFlavo [facility] [id number] Memoria 16:02:17 17:07:46 Visit [facility] Acute Care Surgery 2019-07-11 2019-07-11 Office Mulugeta, BCM 1.2.840.114 [id number] 11:02:17 12:07:46 Visit Luís Keating AMBULATOR 350.1.13.21 Y 0.2.7.2.686 [id number] 2019-07-11 2019-07-11 Office Mulugeta, BCM 1.2.840.[id number] [place] [address] 11:02:17 12:07:46 Visit Luís Keating AMBULATOR 350.1.13.21 College Y 0.2.7.2.686 of [id number] [facility] 815 e 2019-06-26 2019-06-26 Outpatient [facility] [id number] 020 [place] 11:17:00 11:17:00 0226 Medical Group 2019-06-19 2019-06-19 Office nullFlavo [facility] [id number] Memoria 15:23:37 19:56:08 Visit molly Grijalva [facility] Michelle Jara [facility] 2019-06-19 2019-06-19 Office nullFlavo [facility] [id number] Memoria 16:50:49 17:20:49 Visit [facility] Gastroenter ology 2019-06-19 2019-06-19 Office [facility] 1.2.840.114 [id number] 09:23:37 13:56:08 Visit Jase 350.1.13.21 0.2.7.2.686 [id number] 2019-06-19 2019-06-19 Office [facility] 1.2.840.114 [id number] [facility] 09:23:37 13:56:08 Visit Jase 350.1.13.21 Co llege 0.2.7.2.686 of [id number] [facility] 510 e 2019-06-19 2019-06-19 Office Nish, SONAM 1.2.840.114 [id number] 10:50:49 11:20:49 Visit April AMBULATOR 350.1.13.21 Y 0.2.7.2.686 [id number] 2019-06-19 2019-06-19 Office Nish, ARMANDO 1.2.840.[id number] [place] [address] 10:50:49 11:20:49 Visit April AMBULATOR 350.1.13.21 College Y 0.2.7.2.686 of [id number] [facility] 325 e 2019-06-12 2019-06-12 Office nullFlavo [facility] [id number] Memoria 14:17:31 14:47:31 Visit [facility] Gastroenter ology 2019-06-12 2019-06-12 Office Nish, ARMANDO 1.2.840.114 [id number] 08:17:31 08:47:31 Visit April AMBULATOR 350.1.13.21 Y 0.2.7.2.686 [id number] 325 2019-06-12 2019-06-12 Office Nish, ARMANDO 1.2.840.114 [id number] 733 [facility] 08:17:31 08:47:31 Visit April AMBULATOR 350.1.13.21 College Y 0.2.7.2.686 of [id number] [facility] marlene 325 e 2019-06-10 2019-06-10 Vj [facility] [place] - [id number] [place] 00:00:00 00:00:00 Jer Saldivar 0210 jemima Wang MD: Christianity Epi scop 1700 [facility] [facility] [address], [facility] [place] Program [address] , Ph. [phone] 2019-06-05 Outpatient [facility] [id number] [place] 11:10:00 11:10:00 0205 Medical Group 2019-05-08 2019-05-08 Adama Espinosa G_[place]app[place] - [address] 0 [place] 00:00:00 00:00:00 MD Suhas: [address] [place] [address] 201[facility] [address] , Ph. 2019-04-22 2019-04-22 Outpatient [facility] [id number] [place] 11:35:00 11:35:00 1223 Medical Group 2019-03-18 2019-03-18 [facility] [place] - [address] [place] 00:00:00 00:00:00 Jer Saldivar 1118 jemima Wang MD: Christianity Epi scop 1700 [facility] marko [address], [address], [facility] [place] Program [address] , Ph. [phone] 2019-01-29 [place] - [address] [place] 00:00:00 00:00:00 Discovery Joan 1001 ysabel MD: [address] [place] [address] [address] , Ph. [phone] 2019-01-25 2019-01-25 [place] - [address] [place] 00:00:00 00:00:00 Discovery Joan 27 ysabel MOTLEY: [address] [place] [address] 101, [place] [address] , Ph. [phone] 2019-01-07 2019-01-07 [place] - [address] [place] 00:00:00 00:00:00 Discovery Joan 0909 ysabel MOTLEY: [address] [place] [address] 101, [place] [address] , Ph. [phone] 2018-12-27 2018-12-27 [place] - [address] [place] 00:00:00 00:00:00 Discovery Joan 08 ysabel MD: [address] [place] [address] 101, [place] [address] , Ph. [phone] 2018-12-18 2018-12-18 [facility] [id number] [facility] 14:55:23 21:38:01 Visit [facility] 2018-12-18 2018-12-18 Office Otto Daniels 1.2.840.114 [id number] 09:55:23 16:38:01 Visit K AMBULATOR 350.1.13.21 Y 0.2.7.2.686 [id number] 2018-12-18 2018-12-18 Office Otto Daniels 1.2.840.114 [id number] [facility] 09:55:23 16:38:01 Visit K AMBULATOR 350.1.13.21 College Y 0.2.7.2.686 of [id number] [facility] 325 e 2018-12-17 2018-12-17 [place] - [address] [place] 00:00:00 00:00:00 MD Suhas: [address] [place] [address], [place] [address] [place] [address] , Ph. 2018-12-07 2018-12-07 [place] - [address] [place] 00:00:00 00:00:00 MD Suhas: [address] [place] [address], [facility] [place] [address] , Ph. 2018-10-17 2018-10-17 Adama Espinosa [facility] [place] - [id number] [place] 00:00:00 00:00:00 MD Suhsa: [address] [place] [address], [place] [address], [facility], [place] [address] , Ph. 2018-10-15 2018-10-[address] [facility] [address] [id number] Memoria 22:22:00 16:45:00 Inpatient r [facility] 13 l [facility] Prachi nn 2018-09-17 2018-09-17 Julia [facility] [place] - [address] [place] 00:00:00 00:00:00 Discovery Zeus 0520 da CABLE SUPERVISOR: [address] [place] [address], [facility], [facility] [place] [address] , Ph. 2018-08-29 2018-08-29 Adama Espinosa [facility] [place] - [address] [place] 00:00:00 00:00:00 MD Shuas: [address] [place] [address], [facility] [address] , Ph. 2018-08-15 2018-08-15 Adama Espinosa [facility] [place] - [address] [place] 00:00:00 00:00:00 MD Suhas: [address] [place] [address], [facility] [address] , Ph. 2018-07-18 2018-07-[address] [facility] [id number] Memoria 19:26:00 22:16:00 Emergency r [facility] 20 l [place] Prachi nn 2017-02-18 2017-02-19 Emergency nullFlavo [facility] [id number] Memoria 20:36:00 00:04:00 r [facility] 2016-10-10 2016-10-12 Inpatient nullFlavo [facility] [address] [id number] Memoria 05:55:00 15:24:00 [place] 31 l [facility] 2016-07-15 2016-07-19 Inpatient 1 HARSHIL ALLEN [facility] [id number] [facility] 18:47:00 10:30:00 [facility] ([facility]aupr nt) 2016-02-10 2016-02-10 Emergency nullFlavo [facility] [id number] Memoria 18:15:00 21:40:00 r [place] [address] [facility] 2014-08-13 2014-08-13 EC nullFlavo [facility] [id number] Memoria 11:48:00 17:01:00 Emergency r [place] [address] [facility] 2014-03-09 2014-03-09 EC nullFlavo [facility] [id number] Memoria 11:36:00 18:21:00 Emergency r [place] 28 l [facility] 2014-01-14 2014-01-14 EC nullFlavo [facility] [id number] Memoria 12:52:00 23:11:00 Emergency r [place] 27 l [facility] 2014-01-14 2014-01-14 EC nullFlavo [facility] [id number] Memoria 02:58:00 07:26:00 Emergency r [place] 26 l [facility] 2013-11-27 2013-11-27 Lab Report nullFlavo [facility] [id number] Memoria 00:00:00 00:00:00 r [place] [id number] l [facility] 2013-11-22 2013-11-22 EC nullFlavo [facility] [id number] Memoria 15:32:00 16:37:00 Emergency r [place] 25 l [facility] 2013-11-19 2013-11-19 Emergency E OEI, [facility] [id number] 10:08[place] 12:55:00 [facility] 2013-08-05 2013-08-05 Office nullFlavo [facility] [id number] Memoria 00:00:00 00:00:00 Visit r [facility] [id number] [facility] Results Test Description Test Time Test Comments [...] (test code = 347) 11 U/L 6-55 Private Detective ID - MANUEL GBASIC METABOLIC [id number] 06:58:00 Test Item Value Reference Range Interpretation [...] S NOT APPLICABLE FOR DIALYSIS PATIEN TS. Private Detective ID - MANUEL [id number] 06:58:00 Test Item Value Reference Range Interpretation Comments MAGNESIUM (BEAKER) (test code = 1.5 mg/dL 1.6-2.6 L 627) Private Detective ID - MANUEL [id number] 06:58:00 Test Item Value Reference Range Interpretation Comments PHOSPHORUS (BEAKER) (test code = 3.5 mg/dL 2.3-4.7 604) Private Detective ID - MANUEL GCBC W/PLT COUNT & AUTO [id number] 06:26:41 Test Item Value Reference Range Interpretation [...] (BEAKER) (test code = 2801) HEPATIC FUNCTION [id number] 04:16:08 Test Item Value Reference Range Interpretation [...] (test code = 15 U/L 6-55 347) Private Detective ID - LILIANYURI [id number] 04:16:07 Test Item Value Reference Range Interpretation Comments MAGNESIUM (BEAKER) (test code = 1.9 mg/dL 1.6-2.6 627) Private Detective ID - GEGE [id number] 04:16:07 Test Item Value Reference Range Interpretation Comments PHOSPHORUS (BEAKER) (test code = 1.9 mg/dL 2.3-4.7 L 604) Private Detective ID - GEGE LBASIC METABOLIC [id number] 04:16:06 Test Item Value Reference Range Interpretation [...] S NOT APPLICABLE FOR DIALYSIS PATIEN TS. Private Detective ID - PIAYA LCBC W/PLT COUNT & AUTO [id number] 04:02:29 Test Item Value Reference Range Interpretation [...] 2801) FL, UGI, AIR CONTRAST, WITH SMALL [id number] 17:07:00Reason for exam:- >[facility] 1970 Sex: FFINAL REPORT Small bowel follow through: Clinical History: Bowel obstruction After Gastrografin was given orally, multiple images were obtained over the abdomen. FINDINGS: Multiple images were obtained with contrast in the small bowel. The colon was visualized in one hour 30 minutes. No significant small bowel dilation, or fold thickening. Fluoro time: None Number of images obtained: 14 Impression:No evidence of small bowel obstruction Signed: Chelsey Billings MDReport Verified Date/Time:09/08/2021 17:07:54 Reading Location: [facility] [id number] [facility] Consult Reading Room SARS-CoV2/RT-PCR (Asymptomatic ONLY)2021-09-08 07:53:42 Test Item Value Reference Interpretation Comments Range SARS-COV2/RT-PCR Negative Negative The SARS-Co V-2 (test code = target nucleic 95303-3) acids are not detected in thi s specimen. Negat mariah results do not preclude SARS-C oV-2 infection and should not be u sed as the sole bas is for patient management decisions. Nega tive results must be combined with clinical observations, patient history , and epidemiolog ical information. A false negative result may occu r if a specimen is improperly collected, transported or handled. This S ARS CoV-2 test is a rapid, real-yulisa e RT-PCR test intended for th e qualitative detection of nucleic acid fr om SARS-CoV-2 in a nasopharyngeal swab specimen collec francine from individual s suspected of COVID-19 by the ir healthcare provider. JAYY (test code = This test has been JAYY) authorized by FDA under an EUA for use by authorized laboratories. This test is only authorized for the duration of the declaration that circumstances exist justifying the authorization of emergency use of in vitro diagnostic tests for detection and/or diagnosis of COVID-19 under Section 564(b)(1) of the Federal Food, Drug and Cosmetic Act, 21 U.S.C. 360bbb-3(b)(1), unless the authorization is terminated or revoked sooner. Fact Sheet for Healthcare Providers: https://www.[employer]/Documents/Xp ert%20Xpress%20SAR S%20CoV-2/Fact%20S heets/302-6422%20S ARS-COV-2%20HEALTH CARE%20PROVIDERS%2 0FACT%20SHEET.pdf Fact Sheet for Healthcare Patients: https://www.[employer]/Documents/Xp ert%20Xpress%20SAR S%20CoV-2/Fact%20S heets/302-8291%20S ARS-COV-2%20PATIEN T%20FACT%20SHEET.p df Lab Interpretation Normal (test code = 01320-9) [facility])2021-09-08 07:53:42 Test Item Value Reference Range Interpretation Comments SARS-COV2/RT-PCR Negative Negative The SARS-Co V-2 target (test code = nucleic acids a re not 2134844) detected in thi s specimen. Negative result [...] This SARS CoV-2 test is a rapid, real-time RT-PC R test intended for th e qualitative detection [...] Food, Drug and Cosmetic Act, 21 U.S.C. 360bbb-3(b)(1), unless the authorization is terminated or revoked sooner. Fact Sheet for Healthcare Providers: https://www.[employer]/Documents/Xpert%20Xpress%20SARS%20CoV-2/Fact%20Sheets/3023802%56ONQT-LFI-7%20 HEALTHCARE%20PROVIDERS%20FACT%20SHEET.pdf Fact Sheet for Healthcare Patients: https://www.[employer]/Documents/Xpert%20Xp ress%20SARS%20CoV-2/Fact%20Sheets/3023801%29SDQE-CDU-4%20PATIENT%20FACT%20SHEET .pdfBASIC METABOLIC [id number] 06:44:32 Test Item Value Reference Range Interpretation [...] S NOT APPLICABLE FOR DIALYSIS PATIEN STEPHANIE. Private Detective ID - WILBUR [id number] 06:38:30 Test Item Value Reference Range Interpretation Comments PARTIAL THROMBOPLASTIN TIME 35.7 seconds 22.5-36.0 (BEAKER) (test code = 760) PROTHROMBIN TIME/[id number] 06:37:27 Test Item Value Reference Range Interpretation Comments PROTIME (BEAKER) 13.1 seconds 11.9-14.2 (test code = 759) INR (BEAKER) (test 1.01 See_Comment [Automat ed message] code = 370) The system [employer] generated this result transmitted ref erence range: <=5.90. The reference range was not used to int erpret this result as normal/abnormal . RECOMMENDED COUMADIN/WARFARIN INR THERAPY RANGESSTANDARD DOSE: 2.0 - 3.0 Includes: PROPHYLAXIS for venous thrombosis, systemic embolization; TREATMENT for venous thrombosis and/or pulmonary embolus.HIGH RISK: Target INR is 2.5-3.5 for patients with mechanical heart valves.CBC W/PLT COUNT & AUTO [id number] 06:34:48 Test Item Value Reference Range Interpretation [...] code = 2801) RAD, ABDOMEN/KUB, 1 VIEW [id number] 05:29:00Reason for exam:->c/f S[facility] 1970 Sex: FFINAL REPORT TECHNIQUE: Supine views of the abdomen. INDICATION: c/f SBO. COMPARISON: 11/07/2018. FINDINGS/IMPRESSION:Upper abdomen is not entirely included within the gcgcz-nb-esjr. Bowel gas pattern is nonobstructive. Status post cholecystectomy. A thecal pump catheter device overlies the right hemiabdomen. No acute osseous abnormality. Signed: Kehinde Adam [facility] Verified Date/Time: 09/08/2021 05:29:42 CT, EXTREMITY, LOWER, WITHOUT IV CONTRAST, RIGHT 2021-09-01 14:21:00Unlisted Reason for Exam - Click Yes and Enter Reason Below- >YesUnlisted Reason for Exam->avascular necrosis, medial femoral condyle, [facility] : 1970 Sex: FFINAL REPORT TECHNIQUE:Computed tomography imaging of the right lower extremity was performed WITHOUT injected contrast. HISTORY: Preoperative evaluationCOMPARISON: None available. FINDINGS: No acute fracture. Avascular necrosis of the distal femur with subchondral fracturing posteriorly and involving the proximal femur. Surgical findings of prior decompression. The hip and ankle joints are aligned. No soft tissue masses or fluid collections. IMPRESSION: Preoperative CT of the right lower extremity with Nitin protocol. 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 Signed: Cody Leon Verified Date/Time: 09/01/2021 14:21:30 Reading Location: [facility] Reading Room [address] [place] [address] calcium [id number] 07:56:00 Test Item Value Reference Range Interpretation Comments calcium level (test code = calcium 8.5 mg/dL 8.6-10.0 L level) [facility] [Mass/volume] in Serum or [id number] 00:00:00 Test Item Value Reference Range Interpretation Comments Urea nitrogen [Mass/volume] in Serum 13 mg/dL -20 or Plasma (test code = 3094-0) [facility]Creatine kinase [Enzymatic activity/volume] in Serum or [id number] 00:00:00 Test Item Value Reference Range Interpretation Comments creatine kinase (test code = creatine 58 U/L 20-180 kinase) [facility] UnitComprehensive metabolic 2000 panel - Serum or Plasma [...] Serum or Plasma (test code = 6768-6) [facility] UnitMagnesium [Moles/volume] in [id number] 00:00:00 Test Item Value Reference Range Interpretation Comments magnesium level (test code = 2.0 mg/dL 1.6-2.6 magnesium level) [facility] UnitCT, [id number] 09:35:00To investigate for possible anastomotic stricture and small/large bowel crohn's diseaseUnlisted Reason for Exam - Click Yes and Enter Reason Below->NoIs this for enterography?- >YesWill this procedure require oral contrast?->Yes [facility] : 1970 Sex: FFINAL REPORT CT, ABDOMEN \\T\\ PELVIS, WITH IV CONTRAST HISTORY: Crohn's exacerbation (Age > 17y) COMPARISON: Outside CT 07/04/2021 TECHNIQUE: CT of the abdomen and pelvis WITH intravenous contrast. The examination was performed according to the departmental dose-optimization program, which includes automated exposure control, adjustment of the mA and/or kV according to patient sizeand/or use of iterative reconstruction technique. FINDINGS: Lower thorax: Unremarkable.Liver: A segment 2 hypodensity too small to characterize is unchanged dating back to 11/07/2018, probably a cyst.Gallbladder and bile ducts: Surgically absent gallbladder with very mildly dilated bile ducts, similar to slightly less conspicuous compared to 07/04/2021, likely related to postcholecystectomy state.Spleen: Unremarkable.Pancreas: Unremarkable.Adrenals: UnremarkableKidneys and ureters: A 3.6 cm mildly proteinaceous/hemorrhagic cyst on the left is unchanged dating back to 11/07/2018, has a thin peripheral ca lcification, no follow-up needed. A 1.5 cm simple cyst on the right and a 1.2 simple cyst on the left. No hydronephrosis bilaterally.Bowel: Partial colectomy with ileocolonic anastomosis in the right mid abdomen. Liquid contents throughout the large bowel without any bowel wall thickening or evidence for bowel obstruction.Bladder: Unremarkable.Reproductive organs: Surgically absent uterus. No adnexalmasses.Lymph nodes: Unremarkable.Peritoneum: Trace pelvic free fluid, likely reactive or physiologic.Vessels: Unremarkable.Abdominal wall: A pain pump implanted in the right lower quadrant anterior abdominal wall with lead terminating in the lower thoracic spinal canal. Postsurgical changes in the anterior abdominal wall.Bones: Unchanged mild L2 compression deformity. Multilevel mild degenerative changes in the visible spine. IMPRESSION: 1.Liquid contents throughout the large bowel suggesting a mildcolitis without any bowel wall thickening or evidence for bowel obstruction 2. Additional chronic and incidental findings as above. Signed: Leon Venturaort Verified Date/Time: 07/07/2021 09:35:01 Reading Location: [facility] Diagnostic Imaging Reading Room - [place] [address] 1129 [id number] 05:46:30 Test Item Value Reference Range Interpretation Comments MAGNESIUM (BEAKER) (test code = 1.9 mg/dL 1.6-2.6 627) Private Detective ID - WILBUR MBASIC METABOLIC [id number] 05:46:29 Test Item Value Reference Range Interpretation [...] S NOT APPLICABLE FOR DIALYSIS PATIEN TS. Private Detective ID - WILBUR MCBC W/PLT COUNT & AUTO [id number] 05:10:15 Test Item Value Reference Range Interpretation [...] 0-1 PERCENT (BEAKER) (test code = 2801) Fecal [id number] 20:11:55 Test Item Value Reference Range Interpretation Comments Fecal Leukocytes (test No fecal leukocytes No fecal leukocytes code = 40497-3) seen seen Lab Interpretation Normal (test code = 37525-6) [facility]EC[facility] [id number] 20:11:55 Test Item Value Reference Range Interpretation Comments FECAL LEUKOCYTES No fecal leukocytes No fecal leukocytes (BEAKER) (test code = seen seen 992) GI Pathogen Profile by [id number] 14:51:41 Test Item Value Reference Range Interpretation Comments CAMPYLOBACTER (PCR) Not detected Not detected (test code = 28387-7) PLESIOMONAS SHIGELLOIDES Not detected Not detected (PCR) (test code = 27388-8) SALMONELLA (PCR) (test Not detected Not detected code = 69106-0) YERSINIA ENTEROCOLITICA Not detected Not detected (PCR) (test code = 83460-5) VIBRIO CHOLERAE (PCR) Not detected Not detected (test code = 60414-5) ENTEROAGGREGATIVE E. Not detected Not detected COLI (EAEC) BY PCR (test code = 41469-6) ENTEROPATHOGENIC E. COLI Not detected Not detected (EPEC) BY PCR (test code = 19589-1) ENTEROTOXIGENIC E. COLI Not detected Not detected (ETEC) LT/ST BY PCR (test code = 25286-2) SHIGA-LIKE Not detected Not detected TOXIN-PRODUCING E. COLI (STEC) STX1/STX2 (test code = 85672-3) E. COLI O157 (PCR) (test code = 31405-1) SHIGELLA/ENTEROINVASIVE Not detected Not detected E. COLI (EIEC) BY PCR (test code = 56363-6) CRYPTOSPORIDIUM (PCR) Not detected Not detected (test code = 01190-7) CYCLOSPORA CAYETANENSIS Not detected Not detected (PCR) (test code = 89459-7) ENTAMOEBA HISTOLYTICA Not detected Not detected (PCR) (test code = 33026-2) GIARDIA LAMBLIA (PCR) Not detected Not detected (test code = 71716-4) ADENOVIRUS F 40/41 (PCR) Not detected Not detected (test code = 70885-9) ASTROVIRUS (PCR) (test Not detected Not detected code = 59243-5) NOROVIRUS GI/GII (PCR) Not detected Not detected (test code = 26541-7) ROTAVIRUS A (PCR) (test Not detected Not detected code = 18498-8) SAPOVIRUS (I, II, IV, V) Not detected Not detected BY PCR (test code = 24754-8) VIBRIO Not detected Not detected (PARAHAEMOLYTICUS, VULNIFICUS) (test code = 03715-4) JAYY (test code = JAYY) Other viruses, parasites and bacteria not targeted by this PCR panel cannot be excluded; therefore clinical correlation and follow up of serology, culture results, and other molecular studies is required. The results are not intended to be used as the sole means for clinical diagnosis or patient management decisions. This sample was tested at the [facility] using the [employer] Gastrointestinal Panel. It is FDA cleared and has been verified and approved by the [facility] for clinical use. This laboratory is CLIA-certified and [employer] (CAP)-accredited to perform high complexity testing. [facility] CenterGI PATHOGEN PROFILE BY [id number] 14:51:41 Test Item Value Reference Range Interpretation [...] Not detected BY PCR (test code = 8869020) ENTEROPATHOGENIC E. COLI (EPEC) Not detected Not detected BY PCR (test code = 5537062) ENTEROTOXIGENIC E. COLI (ETEC) Not detected Not detected LT/ST BY PCR (test code = 6243241) SHIGA-LIKE TOXIN-PRODUCING E. Not detected Not detected COLI (STEC) STX1/STX2 (test code = 9772962) E. COLI O157 (PCR) (test code = 2655661) SHIGELLA/ENTEROINVASIVE E. COLI Not detected Not detected (EIEC) BY PCR (test code = 9629260) CRYPTOSPORIDIUM (PCR) (test code Not detected Not detected = 20151208) CYCLOSPORA CAYETANENSIS (PCR) Not detected Not detected (test code = 5153941) ENTAMOEBA HISTOLYTICA (PCR) Not detected Not detected (test code = 20151231) GIARDIA LAMBLIA (PCR) (test code Not detected Not detected = 20160101) ADENOVIRUS F 40/41 (PCR) (test Not detected Not detected code = 5378625) ASTROVIRUS (PCR) (test code = Not detected Not detected 20160103) NOROVIRUS GI/GII (PCR) (test Not detected Not detected code = 8957281) ROTAVIRUS A (PCR) (test code = Not detected Not detected 20160105) SAPOVIRUS (I, II, IV, V) BY PCR Not detected Not detected (test code = 6722674) VIBRIO (PARAHAEMOLYTICUS, Not detected Not detected VULNIFICUS) (test code = 1165831) Other viruses, parasites and bacteria not targeted by this PCR panel cannot be excluded; therefore clinical correlation and follow up of serology, culture results, and other molecular studies is required. The results are not intended to be used as the sole means for clinical diagnosis or patient management decisions. This sample was tested at the [facility] using the [employer] Gastrointestinal Panel. It is FDA cleared and has been verified and approved by the [facility] for clinical use. This laboratory is CLIA-certified and College ofAmerican Pathologists (CAP)-accredited to perform high complexity testing.Clostridium difficile GDH [id number] 13:13:04 Test Item Value Reference Range Interpretation Comments C. Difficle Toxin Negative Negative (test code = 3778876434) C. Difficile GDH Positive Negative A C. difficil e Antigen (test code = present but toxin 8963768423) not detected. Indicates colonization wi th non-toxigenic strain or level of toxin below detectable levels. No need for enteric isolation. Treatment is rarely needed (only when stro ng clinical suspicion for Clostridium difficile infection) JAYY (test code = Testing performed JAYY) by [employer] Rapid Cassette Assay. For GDH, published sensitivity of the assay is 98.7% compared to cytotoxicity testing. For Toxin AB, published sensitivity is 87.8% and specificity 99.4% compared to cytotoxicity testing.Verificati on of kit performance was done by the [facility] prior to clinical use. Lab Interpretation Abnormal (test code = 48901-8) [facility] Center[facility]. DIFFICILE GDH [id number] 13:13:04 Test Item Value Reference Range Interpretation Comments CDT TOXIN (test code Negative Negative = ) CDT GDH ANTIGEN Positive Negative A C. difficile present but (test code = toxin not detec francine. ) Indicates colon ization with non-toxige barber strain or level of tox in below detectable leve ls. No need for enteri c isolation. Margarita tment is rarely needed ( only when strong clinical suspicion for Clostridium difficile infection) Testing performed by [employer] Rapid Cassette Assay. For GDH, published sensitivity of the assay is 98.7% compared to cytotoxicity testing. For Toxin AB, published sensitivity is 87.8% and specificity 99.4% compared to cytotoxicity testing.Verification of kit performance was done by the [facility] prior to clinical use.C-Reactive [id number] 05:29:55 Test Item Value Reference Range Interpretation Comments CRP (test code = 676) 0.49 mg/dL 0.00-0.50 JAYY (test code = JAYY) Private Detective ID Rose REED W Lab Interpretation (test Normal code = 76318-9) [facility] CenterMAGN[facility]IUM2022-03-08 05:29:55 Test Item Value Reference Range Interpretation Comments MAGNESIUM (BEAKER) (test code = 2.1 mg/dL 1.6-2.6 627) Private Detective ID Rose REED WC-REACTIVE [id number] 05:29:55 Test Item Value Reference Range Interpretation Comments C-REACTIVE PROTEIN (BEAKER) (test 0.49 mg/dL 0.00-0.50 code = 676) Private Detective ID Rose REED WBASIC METABOLIC [id number] 05:29:54 Test Item Value Reference Range Interpretation [...] S NOT APPLICABLE FOR DIALYSIS PATIEN TS. Private Detective ID Rose MOTLEYNA WCBC W/PLT COUNT & AUTO [id number] 04:52:13 Test Item Value Reference Range Interpretation [...] PERCENT (BEAKER) (test code = 2801) SARS-COV2/RT-PCR ([facility])2021-07-05 20:54:21 Test Item Value Reference Range Interpretation Comments SARS-COV2/RT-PCR (test code = Negative Negative 7819137) Negative result for this test determines that [...] under Section 564(g) of the Act.Testing was performed using the [employer] SARS-CoV-2 assay.Fact Sheet for Healthcare Providers:https://www.molecular.kwong/gregg/RT SARS-CoV-2 HCP Fact Sheet 51- 957481.pdfFact Sheet for Healthcare Patients:https://www.molecular.kwong/gregg/RT SARS-CoV-2 Patient Fact Sheet EN 51-576320H7.zgeDWJTCARIB6823-93-04 15:30:09 Test Item Value Reference Range Interpretation Comments MAGNESIUM (BEAKER) (test code = 2.2 mg/dL 1.6-2.6 627) Private Detective ID - ADMINBASIC METABOLIC [id number] 15:30:08 Test Item Value Reference Range Interpretation [...] S NOT APPLICABLE FOR DIALYSIS PATIEN TS. Private Detective ID - ADMINCBC W/PLT COUNT & AUTO [id number] 15:16:06 Test Item Value Reference Range Interpretation [...] 0-1 PERCENT (BEAKER) (test code = 2801) Tissue [id number] 13:54:10 Test Item Value Reference Range Interpretation Comments Case Report (test code Surgical Pathology = 104) Report Case: [id number] Authorizing Provider: April Mock MD Collected: 07/02/2021 12:46 PM Ordering Location: [facility] ENDOSCOPY Received: 07/02/2021 03:47 PM SERVICES Pathologist: Ly Cortez MD Specimen: Biopsy, Terminal Ileum, yared terminal ileum bx for Crohn's disease activity DIAGNOSIS (test code = y7cjxPVgZTDrh3huEXMkeT 3220) FuZzEwMzNcZnRuYmpcdWMx IHtccnRmMVxlcGljOTYwMV osluGaESVcaVVgN4Hsacjk KRqwYZ5xXE5amZmgrPSbnO EzXZEqMmHii4sij194vVMq z2epYNDTxoivbNp8yDexT0 9fn2G4ScpaG15vbHNpTLK5 ZTVnXSNmsPHeDHRgGAB2QG LqfMZeV7gxHDVmKH9aluaw AGmnFNuoHZJqmTR2YHWbyH LtO8WuIYQnCNavGFWtqfj7 ScXgIt5nhHIpgAtwAUfzZU LmVERlCFbjXDVvRrXwBK0z IHEUQOrXEVqkHEfAMZ6zLE MOP8CGBUdzhBTdAJEnLY2n HDdXUQgjYTXDR9BQGYyYZF ijPDGPZ1ERIhWESSGEJZzE VVMgQVJDSElURUNUVVJFIE FORCBGUkFHTUVOVCBPRiAg K01DK52CUkGJIYDRA6OdCQ BtztCsAZSwIN1JSSVZL08I DdzXUP5MNAsVP0AVNLAIZT 7YI2yKO6EMGLSCYE6NJWzy ZLTtLEFlLRZNNgFIE4VKBo SuTG5UQCJNRCCFKI7ZYUQC RUFUVVJFUyBPRiBDSFJPTk vCJPQLLXpIYKFuV2JgQ3UE XhKCN26IOP8OTSOGSDLgog WgAJJrnYXqDAFDE1WkLDLb eDLtdTozxfSzDKtxo9OpNX rtGZEjGD0pdNpgRVSvLW2w AASwG2fzrA5leeo6BbCzBF KjIjO4UKKietT6Imk4IHOd ANmgx8arm9TyNSZoZXx3hB ayFrBbVMAcz0kiwzOiPhGy GNFnEEGxLYYmaARgE194v4 het3kuxqGfjLI1JNEgBQX0 HVpvzkEldbG5XFefrDLcCo T7EBjdyxYxBFokijNhzjNs Goe1VIPcX935CTJ0mIapv5 uyIWQ0TGTgEJHrGbDgOo0p gNPgV417OBZvOULAUNYylU p8XDKgdqSppsEeuSRNj119 E708k7lsQHJwuwDqmTeUeg zzd8lsR593EHFzoANpzmCw LlLeLHTmbZVbqFN7BXZyNZ 1zqgygHZojNCyqOYPeajJ3 MBJtwZXbB0IlKUBiGE3mju ihBIB3EChhHKUiZBM9LqOp QCOmo8Eiepl3OuDckp3uje 14MLN7t6KtfDsvHLO0WVV5 SiNvQy4dqDQgYYAdFY2lJa GnnUQwGLSohf84eQxxYWwy JVU7GCBehvYjj5Oro7fhUz GydgFaK1xyF8FrTSViWFVa WBRgVfNfufYhz9Uop2TawR PieDf1s8qiEAQvTNUtaFcw c4maECE8RKSflXCkT4kpeG 4nGPFuJB0vjsidi7pdBMyc QIhqSBCwnPB1jvB8DIIahG DlF7YdrE1uPQSrFXqjTJDa mmp0CcKgUi3bqULwqAodSO xzYmtwYWdlXHBnbmNvbnRc cGduZGVjXHBsYWluXHBsYW luXGYwXGZzMjRccWxcbGFu ZzEwMzNcaGljaFxmMVxkYm CzDKHiTPyiW8xwMcQxXmZe Few7MXIjqZEzRIIrPqx3LE UcnAIjNLUIvKpgxG5hBLGr aCyacQ4vaWP4QVAosyZzyN YMaY3vTBUFlM3lIcY1McHf VdB3QWr1FXSzqNOmfT6= COMMENT (test code = c0njtBAmATIevIP8WaUyPK 3359) Lpy0kde9FowFJwtTQdIXka cHFkxsLrfy68yKF2rG48RS 3jEINoEnA2PUIbjxM5Cei0 VDMnKCHktUPpW319f1pbg5 rgmsLedVI6vMggIDGkxlkk JuX5AXupOXYvljuhYXw3NS okPREkgRZ1COHdbMDbJ3Wh QKFeRR1oioo6DWE7WZauEF ZaDnO3QCZbzBApUDLlaIle EMadb348GYL4ZfOsNSLtvj WucXixbK0uVuHbOPWUkdXb v8AyuVlgDESkhR5smYOpGE HcSEgxAT7cPBuzKCTayHTs YR3wU9J5tMHgPGBxrlN1tR WfoFVxqCPjlST1aPyvHVVw IqLdlGTmg4ZuQKE0r1IjIP TlAD8dTEUmto8= CPT Code(s) (test code m2dakEQsOMAlsOF8AjUcDT = 3357) Bbh7tdg9HchHNpfRSiDXup rDHvbpZyoa15gTW5wW80DC 2uUOZgTwI7YMBwkjN1Yhs3 WELwTNRdfHIvQ569y2ewi9 qkdfJoyEK3hRrpPPKhzqlp YyE9QPxgIQNjtyfmNFm1WW rsMMCsaYL0OWIasWByA8Uh YRTmTS9webk9EQJ6WFluAY YfCzG4NDUwsPApEWQneRsr ZNxej085KUW2LlOgKYCnjt LtyIqjcW0qZjNjVEM2IUQl ZMH6DSwtYFL5 CLINICAL HISTORY (test v8lycHPkNMRhkYQ3FuHcQW code = 3356) Vzs8qly3BohPQcyAPsNChz iOCxzxBpwx69gSX9sU81AU 1aKNFdJgS8IJExveI4Geh5 WASoYGCcgFDiU627z6nyz5 ijyyMpsGK0vCrgDVGgbzfd KrQ7TAfxGFIadjmfBLy4RN ewRYVvlZY5XBXldSTxE6To ERZyHQ7zrkl7VJE8XYfoYQ WwGfI7MJJqfKZtCPBjaIzl XYkkw369EUS4WlKxRCZgbr QahQyzhT1fHrUlRRBXgs8m ylpxFTHlx1Hys0Sbw9JsOa 90aCBzbWFsbCBhbmQgbGFy S5KziC91WEV7uY7sTZnqiH wqmCLgE34nmOweL0N0nX4x XHBhcn0= SPECIMEN SOURCE (test o8uzmCAvAGToeYO6JjScXZ code = 3377) Gmn9rwb2UjuYFxhHKsHUki sXLbjuOtly98dAL4aJ40NB 0qOLZwRoB9IPXpegJ2Uqi4 XSHeWZAbzHOiU218i9dcw2 pbhzOsdMB8uFnwJHPonlxs NxG2JOlaZBQbejlsQOb6KJ glTWLsxCF6LHBfqMZuK0Js BJWwJW8umzu5JHJ2DHomBJ GdJuN2FVBrvVVyCUGffRxe YIyjj995LFQ4IlMzEDYlcs XakCkhcY2wZeJhHEVYQaFb AwddtZD1PRR7EQVdwP9irE DdcXJ1qQbwmyQlpLYpvIin OEkrwJdjzY8jzUWpbX== GROSS DESCRIPTION (test t4bfmPZkYNHnpMBaSbHiLI code = 3366) RaOEXoe2xwDOIdsCUaOmBb MzNcZnRuYmpcdWMxXGRlZm Cdx8nwz728nVOkr9dxRXAW reegeYb2d6kbPZPtHeA0dD FiDZvtN0mlctUhsNRzFLCn UOc3rD62WNArjB1ezEVpLT zurqTkSuY6WLopPHMiSjT9 DAAsfORvLLHoK4qyONPvKG ntYAMgWHmjxMNrCPK5bZkg s3S5wGAosPIxzZzxPaIhCi OgBNQEw6JfZPl1tKtaZ2Wn GACiOwZ9aAIdBDBgERliMU SmIAAdhbP4mC18WOaqwwY5 kOInp8Rux83rv513vU0hiC QvQAM4HNAdTUVbfWDdHZAq VMT2UMXgjYUwV0l2OfScmZ NuK0V4JaVpdKSqG6H1KsAo wFXpD2V3FaAcfZDuRRGrkY VoFx1lqGVywUBlwf0mzi40 QZR6s3CuuUufIBT9ZSS9Wl GhVs7wcDNgESOyDDFbtATo MCAqQH7nhCNuSWCleP7wgh xjXHBnYnJkcmhlYWRccGdi luZcEi1joVqdFIW4YJmxI6 dbkG4pNxN7PVgjJ4rusT7m TXy2EYzgqJX2HFDypV6mAO 7hidobq6wxLiKnLT3meeaz i6mgWxXsNR6qpdj7d9fnYb PnPV2ybzwzu3yaNaNcAHvu JPDlbhjsYZYju4ZrrqdgEY Qtl9NkP4RvlEibA41fgGap O06cRBGwzJmitR8ylUphvR 5cZjBcZnMyNFxwYXJkXHBs YWluXGYxXGZzMjBcbGFuZz EwMzNcaGljaFxmMVxkYmNo DISsTEtkJ7ehQhZrCtAzCX BBLiBSZWNlaXZlZCBpbiBm s8YmGLwpygKsUNKckPImEP dpdGggdGhlIHBhdGllbnRc F6B4nrJvGG4rTJRmPKLvA2 BiURAlO10nKHPjsX2iLGGv QB7rYLA4QIMlyG0esZAmrY S5vXVXTJBzOG6nIKErixXc w4KkFV3fRBNpMPCxeoLvXq R3OO7hnLojhxVky8T3AMKe h3X5FNTzYFBaxHGrbyhkQQ 3gHQiaZC0pAJniKB4fZHPh IGFuZCAwLjQgeCAwLjMgeC YqFfOrL49fSOHqXZLyxGOb eE8svmQcdaIrcUQuwKC0YX YnxM3mbY45naAhphMQZX2b yRfuUQebcL3wTVwIRBfoGJ J9 MICROSCOPIC DESCRIPTION e2rzxOWyHIOrtLM6UoMdFE (test code = 3371) Dnp1zwy3LhvHArjBKdMEco bOKmcyTgtw56wZN0pR88WO 4aZOFxLrW7MTGmyqZ6Tma8 HCBpNKLsiJRnT068b9dhb9 etccFtdDR0ySlbLKOnyrhv WoG2INptYJPdvsadLAa5XJ suPYPjeRW4BDSgsIGyI3Od OPLvVY1oplk2PSY8GGmaYN McGpZ7QHYoaNUeAJYwmEbs PGwoc502DKK1VkTnTREccw MaiZqbpZ2bApFgCXJGIZCn r8LeVINkTUFnie8= Gross assessment was [facility] performed at (Formerly [facility], = 2777) Department of Pathology, [address] [place] [address], Technical component was [facility] performed at ([facility], = 2778) Department of Pathology, [address] [place] [address], Professional component [facility] was performed at ([facility], code = 2779) Department of Pathology, [address] [place] [address], [facility] Center[facility] [id number] 13:54:10Surgical Pathology Report Case: [id number] Authorizing Provider: April Mock MD Collected: 07/02/2021 12:46 PM Ordering Location: [facility] ENDOSCOPY Received: 07/02/2021 03:47 PM SERVICES Pathologist: Ly Cortez MD Specimen: Biopsy, Terminal Ileum, yared terminal ileum bx for Crohn's diseaseactivity A. TERMINAL ILEUM, BIOPSY: - ILEAL MUCOSA WITH PRESERVED VILLOUS ARCHITECTURE AND FRAGMENT O F COLONIC MUCOSA - NO SIGNIFICANT HISTOPATHOLOGICAL CHANGE - NO ACTIVE INFLAMMATION, FEATURES OF CHRONIC COLITIS OR GRANULOMA NOTED SJ/pl Signing Pathologist Direct Phone Line: [phone] signed by Ly Cortez MD on 07/05/2021 at 1:54 PMEndoscopic report reviewed. Negative for viral cytopathic effects or dysplasia. 36000 u4Vkubt's disease of both small and large intestine without complicationA. Biopsy, terminal ileum, neoterminal ileumA. Received in formalin labeled with the patient's name, medical record number and "terminal ileum BX" and consists of pieces of rodriguez-pink soft tissue measuring 0.3 x 0.3 x 0.2 cm and 0.4 x 0.3 x 0.2 cm. The specimen is submitted in toto in [facility]1.[facility], [facility], [address] [place] [address], [facility], [facility] of [facility], [address] [place] [address], [facility], Department of Pathology, [address] [place] [address], GZPI-CoV-2 (COVID-19) RNA [Presence] in Respiratory specimen by JULISSA with probe [id number] 00:00:00 Test Item Value Reference Range Interpretation Comments SARS-CoV-2 (COVID-19) RNA not detected not detected [Presence] in Respiratory specimen by JULISSA with probe detection (test code = 11326-5) sars-cov-2, JULISSA 2 day tat (test performed code = sars-cov-2, JULISSA 2 day tat) [facility] [Presence] in Respiratory specimen by JULISSA with probe [id number] 00:00:00 Test Item Value Reference Range Interpretation Comments SARS-CoV-2 (COVID-19) RNA not detected not detected [Presence] in Respiratory specimen by JULISSA with probe detection (test code = 35295-6) sars-cov-2, JULISSA 2 day tat (test performed code = sars-cov-2, JULISSA 2 day tat) [facility] W Auto Differential panel - [id number] 01:10:00 Test Item Value Reference Range Interpretation Comments white blood count (test code = 8.6 K/uL 4.0-11.5 white blood count) red blood count (test code = red 4.16 M/uL 3.80-5.20 blood count) hemoglobin (test code = 12.5 g/dL 10.5-15.7 hemoglobin) hematocrit (test code = 40.0 % 34.0-50.0 hematocrit) MCV [Entitic volume] (test code = 96.2 fL 86.0-100.0 60606-0) mean corpuscular hemoglobin (test 30.0 pg 26.2-33.4 [...] 44.4-80.1 leukocytes in Blood (test code = 52341-7) Immature granulocytes [#/volume] 0.03 K/uL 0.00-0.03 in Blood (test code = 45034-2) lymphocyte% (test code = 33.8 % 10.0-50.0 lymphocyte%) mono % (test code = mono %) 5.8 % 3.6-12.0 eos % (test code = eos %) 8.9 % 0.0-5.4 H Basophils/100 leukocytes in 0.6 % 0.1-1.2 Unspecified specimen (test code = 47095-4) Band form neutrophils [#/volume] 4.36 K/uL 1.56-6.13 in Blood (test code = 76556-9) Lymphocytes [#/volume] in 2.91 K/uL 1.18-3.74 Unspecified specimen by Automated count (test code = 54797-1) mono # (test code = mono #) 0.50 K/uL 0.24-0.86 eos # (test code = eos #) 0.77 K/uL 0.04-0.36 H basophil # (test code = basophil 0.05 K/uL 0.01-0.08 #) NRBC% (test code = NRBC%) 0 /100 WBC 0-0.2 NRBC# (test code = NRBC#) 0 K/uL [facility] - Serum or Plasma [...] Serum or Plasma (test code = 6768-6) [facility] W Auto Differential panel - [id number] 01:10:00 Test Item Value Reference Range Interpretation Comments white blood count (test code = 8.6 K/uL 4.0-11.5 white blood count) red blood count (test code = red 4.16 M/uL 3.80-5.20 blood count) hemoglobin (test code = 12.5 g/dL 10.5-15.7 hemoglobin) hematocrit (test code = 40.0 % 34.0-50.0 hematocrit) MCV [Entitic volume] (test code = 96.2 fL 86.0-100.0 60698-2) mean corpuscular hemoglobin (test 30.0 pg 26.2-33.4 [...] 44.4-80.1 leukocytes in Blood (test code = 03978-4) Immature granulocytes [#/volume] 0.03 K/uL 0.00-0.03 in Blood (test code = 61577-2) lymphocyte% (test code = 33.8 % 10.0-50.0 lymphocyte%) mono % (test code = mono %) 5.8 % 3.6-12.0 eos % (test code = eos %) 8.9 % 0.0-5.4 H Basophils/100 leukocytes in 0.6 % 0.1-1.2 Specimen (test code = 00359-5) Band form neutrophils [#/volume] 4.36 K/uL 1.56-6.13 in Blood (test code = 80549-4) Lymphocytes [#/volume] in Specimen 2.91 K/uL 1.18-3.74 by Automated count (test code = 13180-9) mono # (test code = mono #) 0.50 K/uL 0.24-0.86 eos # (test code = eos #) 0.77 K/uL 0.04-0.36 H basophil # (test code = basophil 0.05 K/uL 0.01-0.08 #) NRBC% (test code = NRBC%) 0 /100 WBC 0-0.2 NRBC# (test code = NRBC#) 0 K/uL [facility] 2000 panel - Serum or Plasma [...] Serum or Plasma (test code = 6768-6) [facility] and [id number] 16:26:00 Test Item Value Reference Range Interpretation Comments ABO grouping (test code = 883-9) A Rh type (test code = 88113-3) [facility] and [id number] 16:26:00 Test Item Value Reference Range Interpretation Comments ABO grouping (test code = 883-9) A Rh type (test code = 60738-5) [facility] and [id number] 16:26:00 Test Item Value Reference Range Interpretation Comments ABO grouping (test code = 883-9) A Rh type (test code = 85428-8) [facility] and [id number] 16:26:00 Test Item Value Reference Range Interpretation Comments ABO grouping (test code = 883-9) A Rh type (test code = 20855-7) [facility] and [id number] 16:26:00 Test Item Value Reference Range Interpretation Comments ABO grouping (test code = 883-9) A Rh type (test code = 33819-3) [facility] [id number] 15:29:03 Test Item Value Reference Range Interpretation Comments POC glucose (test 78 mg/dL 65-99 Private Detective N kaitlyn: [place] code = 41923-9) ThelmaDevice ID: [id number] [facility] [id number] 15:29:03 Test Item Value Reference Range Interpretation Comments POC glucose (test 78 mg/dL 65-99 [employer] Detective N kaitlyn: [place] code = 97078-6) ThelmaDevice ID: [id number] [facility] [id number] 15:29:03 Test Item Value Reference Range Interpretation Comments POC glucose (test 78 mg/dL 65-99 Private Detective N kaitlyn: [place] code = 46277-2) ThelmaDevice ID: [id number] [facility] [id number] 15:29:03 Test Item Value Reference Range Interpretation Comments POC glucose (test 78 mg/dL 65-99 Private Detective N kaitlyn: [place] code = 99521-1) ThelmaDevice ID: [id number] [facility] [id number] 15:29:03 Test Item Value Reference Range Interpretation Comments POC glucose (test 78 mg/dL 65-99 Private Detective N kaitlyn: [place]ales code = 00621-7) ThelmaDevice ID: [id number] [facility] RNA [Presence] in Respiratory specimen by JULISSA with probe [id number] 05:00:23 Test Item Value Reference Range Interpretation Comments SARS-CoV-2 (COVID-19) RNA Not detected Not-Detected [Presence] in Respiratory specimen by JULISSA with probe detection (test code = 37304-7) ECG Pre/Post [id number] 22:21:44 Test Item Value Reference Range Interpretation Comments Ventricular rate (test code = 253) Atrial rate (test code = 255) NV interval (test code = 266) QRSD interval [...] Beaulieu MD (2019) on 05/06/2021 4:21:39 PM [facility] Pre/Post [id number] 22:21:44 Test Item Value Reference Range Interpretation Comments Ventricular rate (test code = 253) Atrial rate (test code = 255) NV interval (test code = 266) QRSD interval [...] Beaulieu MD (2019) on 05/06/2021 4:21:39 PM [facility] Pre/Post [id number] 22:21:44 Test Item Value Reference Range Interpretation Comments Ventricular rate (test code = 253) Atrial rate (test code = 255) NV interval (test code = 266) QRSD interval [...] Beaulieu MD (2019) on 05/06/2021 4:21:39 PM [facility] Pre/Post [id number] 22:21:44 Test Item Value Reference Range Interpretation Comments Ventricular rate (test code = 253) Atrial rate (test code = 255) NV interval (test code = 266) QRSD interval [...] 05/06/2021 4:21:39 PM [facility] [id number] 22:21:44 Test Item Value Reference Range Interpretation Comments Ventricular rate (test code = 253) Atrial rate (test code = 255) NV interval (test code = 266) QRSD interval [...] Beaulieu MD (2019) on 05/06/2021 4:21:39 PM [facility] and [id number] 19:32:00 Test Item Value Reference Range Interpretation Comments ABO grouping (test code = 883-9) A Rh type (test code = 32890-1) POS Antibody screen (gel) (test code = NEG 890-4) [facility] and [id number] 19:32:00 Test Item Value Reference Range Interpretation Comments ABO grouping (test code = 883-9) A Rh type (test code = 72105-9) POS Antibody screen (gel) (test code = NEG 890-4) [facility] and [id number] 19:32:00 Test Item Value Reference Range Interpretation Comments ABO grouping (test code = 883-9) A Rh type (test code = 68083-3) POS Antibody screen (gel) (test code = NEG 890-4) [facility] and [id number] 19:32:00 Test Item Value Reference Range Interpretation Comments ABO grouping (test code = 883-9) A Rh type (test code = 19045-3) POS Antibody screen (gel) (test code = NEG 890-4) [facility] and [id number] 19:32:00 Test Item Value Reference Range Interpretation Comments ABO grouping (test code = 883-9) A Rh type (test code = 63104-3) POS Antibody screen (gel) (test code = NEG 890-4) [facility], EXTREMITY, LOWER, JOINT, WITHOUT IV CONTRAST, RIGHT 2021-05-04 09:55:00Unlisted Reason for Exam - Click Yes and Enter Reason Below- >YesUnlisted Reason for Exam->avascular necrosis [facility]A [facility]ODRIGUEZ : 1970 Sex: FFINAL REPORT Right knee [...] compartment: No meniscal tear or cartilage abnormality. TheLCL complex is normal. Surgical screw tracts through the posterior lateral femoral condyle. Intercondylar notch: The ACL and PCL are intact. Patellofemoral compartment: No chondromalacia or patellar dis location. Extensor mechanism: The quadriceps and patellar tendons are normal. Other findings: Thereis a moderate-sized joint effusion and mild synovitis. [...] bone infarction/avascular necrosis and postsurgical change. IMPRESSION: Numerousscattered bone infarcts in the distal femur/femoral condyles and in the proximal tibia. Findings cons istent with avascular necrosis most pronounced at the [...] MDReport Verified Date/Time: 05/04/2021 09:55:28 Reading Location: [facility] Reading Room [address] [place] [address] ANG, NON-TUNNELED CATH/PICC >5 Y.O. WITH [id number] 13:44:00Reason for Exam:->[facility] 1970 Sex: FFINAL REPORT Right upper extremity PICC insertion. History: Need for long-term IVantibiotics. Security Compliance Specialist: Dayne Gaines MD. Mlt: None. Modality: Sonography and fluoroscopy. Sedation: None. Anesthesia: Two percent Lidocaine without epinephrine. Approach: Right basilic vein Estimated blood loss: < 5 cc. Specimen: None. Fluoroscopy Time: 0.1 min.Reference Air Kerma (Ka, r): 0.1 mGy. Technique: Informed written consent was obtained. Discussion of risks, benefits, andalternatives were made with the patient. The patient expressed understanding and agreed to proceed. A universal timeout was performed prior to starting the procedure. All elements maximal sterile barrier technique was utilized for this procedure, including utilization of sterile scrub solution for skin prep, a large sterile sheet to cover the areas of the patient that were not prepped, and hand hygiene, mask, head covering, and sterile gown for performing radiologist and scrub technologist. The skinwas anesthetized with 2% lidocaine. Ultrasound evaluation showed a patent and compressible right basi lic vein, which was punctured under direct real-time ultrasound guidance with a micropuncture needle. An ultrasound image was saved to PACS. A 0.018 inch wire was placed through the needle into the right atrium. A 5 Japanese peel-away sheath was placed. The 5 Japanese double-lumen PICC line was measured and cut at 40 cm, and advanced through the sheath, with its distal tip terminating in the cavoatrial junction. The peel-away sheath was removed. The ports were flushed and aspirated easily following placement. The PICC line was secured with suture material. Vital signs were monitored throughout the procedure by a nurse, and remained stable. The patient tolerated the procedure well and left the [facility] t in the same condition. Results: Spot radiograph of the chest demonstrates the new right upper extremity PICC line to lie in the expected position with its tip overlying the cavoatrial junction. Impression: Successful, uncomplicated placement of a right upper extremity PICC using sonographic and fluoroscopic guidance. The catheter is ready for immediate use. Signed: Dayne Gaines MDReport Verified Date/Time: 05/03/2021 13:44:35 Reading Location: [place] [address] [facility] Reading Room LK-HyX-0 (COVID-19) RNA [Presence] in Respiratory specimen by JULISSA with probe [id number] 03:30:1723824-3[facility] COMPREHENSIVE METABOLIC [id number] 14:28:17 Test Item Value Reference Range Interpretation [...] code = See_Comment [Autom ated message] The 64097-9) system which ge nerated this result tra nsmitted reference range : >60 ML/MIN/1.73. Th e reference range was not used to interpr et this result as normal/abnormal . EGFR (test code = See_Comment [Automate d message] The 74781-0) system which ge nerated this result tra [...] code = See_Comment [Autom ated message] The 01535-3) system which ge nerated this result tra [...] code = See_Comment [Autom ated message] The 50929-2) system which ge nerated this result tra nsmitted reference range : 3.5 - 5.2 G/DL. The r eference range was not u sed to interpret this result as normal/abnormal . GLOBULINS, SERUM, TOTAL See_Comment [Au tomated message] The (test code = 87337-2) system which generated this result tra nsmitted [...] (SGPT) (test code = 17 U/L 5-40 Unl ess Otherwise 1744-2) Indicated, All Testing Performed At: [facility], [address] [place] [id number] [place] [address] Director: Parish Lees M.D. CLIA Number [id number] Cap Accreditation [place] o. [id number] [facility] [id number] 14:28:17 Test Item Value Reference Range Interpretation [...] code = See_Comment [Autom ated message] The 01005-4) system which ge nerated this result tra nsmitted reference range : >60 ML/MIN/1.73. Th e reference range was not used to interpr et this result as normal/abnormal . EGFR (test code = See_Comment [Automate d message] The 15097-4) system which ge nerated this result tra [...] code = See_Comment [Autom ated message] The 19711-9) system which ge nerated this result tra [...] code = See_Comment [Autom ated message] The 62486-7) system which ge nerated this result tra nsmitted reference range : 3.5 - 5.2 G/DL. The r eference range was not u sed to interpret this result as normal/abnormal . GLOBULINS, SERUM, TOTAL See_Comment [Au tomated message] The (test code = 86969-4) system which generated this result tra nsmitted [...] (SGPT) (test code = 17 U/L 5-40 Unl ess Otherwise 1744-2) Indicated, All Testing Performed At: [facility], [address] [place] [address] [facility] Director: Parish Lees M.D. CLIA Number [id number] Cap Accreditation N o. [facility] AUT[facility] [id number] 12:27:01 Test Item Value Reference Range Interpretation Comments COLOR UA (test code = DARK YELLOW YELLOW-STRAW A 5778-6) CLARITY UA (test code CLEAR CLEAR = 5767-9) SPECIFIC GRAVITY UA (NOTE) 1.005-1.035 UNABLE TO DETERMINE (test code = 5811-5) RESULT DUE TO INTERFERENCE FR OM URINE PIGMENT. WBC UA (test code = 0-5 See_Comment [Automa francine message] 84939-0) The system [employer] generated this result transmit francine reference range : 0 - 5 /HPF. The reference range was not used to interpret this result as normal/abnormal . RBC UA (test code = 3-5 See_Comment [Automa francine message] 68330-5) The system [employer] generated this result transmit francine reference range : 0 - 5 /HPF. The reference range was not used to interpret this result as normal/abnormal . EPITHELIAL CELLS (test 0-5 See_Comment [Aut omated message] code = 44911-8) The system [employer] generated this result transmit francine reference range : 0 - 10 /HPF. The reference range was not used to interpret this result as normal/abnormal . BACTERIA (test code = NONE SEEN NONE SEEN 91855-9) CRYSTALS (test code = PRESENT NONE SEEN A CALCI UM OXALATE 5782-8) CRYSTALS HYALINE CASTS (test NONE SEEN NONE-TRACE Unless Otherwise code = 22584-5) Indicated, A ll Testing Perform ed At: [facility], [address] [place] [address] [facility] Director: Parish Lees M.D. CLIA Number [id number] Cap Accreditati on No. Lab Interpretation Abnormal (test code = 46393-4) [facility] AUT[facility] [id number] 12:27:01 Test Item Value Reference Range Interpretation Comments COLOR UA (test code = DARK YELLOW YELLOW-STRAW A 5778-6) CLARITY UA (test code CLEAR CLEAR = 5767-9) SPECIFIC GRAVITY UA (NOTE) 1.005-1.035 UNABLE TO DETERMINE (test code = 5811-5) RESULT DUE TO INTERFERENCE FR OM URINE PIGMENT. WBC UA (test code = 0-5 See_Comment [Automa francine message] 14037-2) The system [employer] generated this result transmit francine reference range : 0 - 5 /HPF. The reference range was not used to interpret this result as normal/abnormal . RBC UA (test code = 3-5 See_Comment [Automa francine message] 30728-5) The system [employer] generated this result transmit francine reference range : 0 - 5 /HPF. The reference range was not used to interpret this result as normal/abnormal . EPITHELIAL CELLS (test 0-5 See_Comment [Aut omated message] code = 24485-6) The system [employer] generated this result transmit francine reference range : 0 - 10 /HPF. The reference range was not used to interpret this result as normal/abnormal . BACTERIA (test code = NONE SEEN NONE SEEN 86828-9) CRYSTALS (test code = PRESENT NONE SEEN A CALCI UM OXALATE 5782-8) CRYSTALS HYALINE CASTS (test NONE SEEN NONE-TRACE Unless Otherwise code = 11380-1) Indicated, A ll Testing Perform ed At: [facility], [address] [place] [address] [facility] Director: Parish Lees M.D. CLIA Number [id number] 03 [facility] [place] [id number] Lab Interpretation Abnormal (test code = 03858-3) [facility] W/AUTO DIFF WITH [id number] 09:34:22 Test Item Value Reference Range Interpretation Comments WHITE BLOOD CELL COUNT See_Comment [Aut omated message] (test code = 55362-3) The sy stem which generated this result transmitted ref erence range: 3.5 - 11 .0 K/UL. The refer ence range was not u sed to interpret this result as normal/abnor mal. RED BLOOD CELL COUNT See_Comment [Autom ated message] (test code = 72720-6) The sy stem which generated this result transmitted ref erence range: 3.80 - 5 .40 M/UL. The refer ence range was not u sed to interpret this result as normal/abnor mal. HEMOGLOBIN (test code = See_Comment [Au tomated message] 718-7) The system [employer] generated this result transmitted ref erence range: 11.5 - 1 5.5 G/DL. The refer ence range was not u sed to interpret this result as normal/abnor mal. HEMATOCRIT (test code = 42.0 % 34.0-45.0 66094-0) MEAN CORPUSCULAR VOLUME 94.8 fL 80.0-99.0 (test code = 12262-7) MEAN CORPUSCULAR 31.4 PG 25.0-33.0 HEMOGLOBIN (test code = 74501-3) MEAN CORPUSCULAR See_Comment [Automated message] HEMOGLOBIN CONC (test The sy stem which code = 57641-7) generated th is result transmitted ref erence range: 31 - 36 G/DL. The reference r markus was not used to interpret this result as normal/abnor mal. RED CELL DISTRIBUTION 11.8 % 11.5-15.0 WIDTH (test code = 69409-2) NEUTROPHILS % (test code 66.2 % 40.0-75.0 = 32566-2) LYMPHOCYTES % (test code 25.8 % 20.0-45.0 = 07939-5) MONOCYTES % (test code = 5.6 % 4.0-12.0 14675-4) EOSINOPHILS % (test code 1.9 % 0.0-7.0 = 69760-7) BASOPHILS % (test code = 0.3 % 0.0-2.0 42138-7) IMMATURE GRANULOCYTES 0.2 % 0.0-1.0 (test code = 08601-5) NUCLEATED RBC'S See_Comment Unless Othe rwise MYELOPEROX STAIN (test Indic ated, All Testing code = 84387-2) Performed At : [facility], [address] [place] [address] [facility] Director: Parish Lees M.D. CLIA Number [id number] Cap Accreditation [place] o. [id number] [Autom ated message] The sy stem which generated this result transmit francine reference range : 0.00 - 0.11 K/UL. Th e reference range was not used to int erpret this result as normal/abnormal . PLATELET COUNT (test See_Comment [Autom ated message] code = 21094-0) The system w hich generated this result transmitted ref erence range: 130 - 40 0 K/UL. The reference r markus was not used to interpret this result as normal/abnor mal. NEUTROPHILS ABSOLUTE See_Comment [Autom ated message] COUNT (test code = The syste m which 25005-5) generated this result transmitted ref erence range: 1.50 - 7 .50 K/UL. The refer ence range was not u sed to interpret this result as normal/abnor mal. LYMPHOCYTES ABSOLUTE See_Comment [Autom ated message] COUNT (test code = The syste m which 98531-1) generated this result transmitted ref erence range: 1.00 - 4 .00 K/UL. The refer ence range was not u sed to interpret this result as normal/abnor mal. MONOCYTES ABSOLUTE COUNT See_Comment [A utomated message] (test code = 20818-8) The sy stem which generated this result transmitted ref erence range: 0.20 - 1 .00 K/UL. The refer ence range was not u sed to interpret this result as normal/abnor mal. BASOPHILS ABSOLUTE COUNT See_Comment [A utomated message] (test code = 48538-4) The sy stem which generated this result [...] to interpret this result as normal/abnor mal. [facility] W/AUTO DIFF WITH [id number] 09:34:22 Test Item Value Reference Range Interpretation Comments WHITE BLOOD CELL COUNT See_Comment [Aut omated message] (test code = 71811-5) The sy stem which generated this result transmitted ref erence range: 3.5 - 11 .0 K/UL. The refer ence range was not u sed to interpret this result as normal/abnor mal. RED BLOOD CELL COUNT See_Comment [Autom ated message] (test code = 07685-8) The sy stem which generated this result transmitted ref erence range: 3.80 - 5 .40 M/UL. The refer ence range was not u sed to interpret this result as normal/abnor mal. HEMOGLOBIN (test code = See_Comment [Au tomated message] 718-7) The system [employer] generated this result transmitted ref erence range: 11.5 - 1 5.5 G/DL. The refer ence range was not u sed to interpret this result as normal/abnor mal. HEMATOCRIT (test code = 42.0 % 34.0-45.0 64527-3) MEAN CORPUSCULAR VOLUME 94.8 fL 80.0-99.0 (test code = 28281-6) MEAN CORPUSCULAR 31.4 PG 25.0-33.0 HEMOGLOBIN (test code = 41288-6) MEAN CORPUSCULAR See_Comment [Automated message] HEMOGLOBIN CONC (test The sy stem which code = 37887-4) generated th is result transmitted ref erence range: 31 - 36 G/DL. The reference r markus was not used to interpret this result as normal/abnor mal. RED CELL DISTRIBUTION 11.8 % 11.5-15.0 WIDTH (test code = 21999-9) NEUTROPHILS % (test code 66.2 % 40.0-75.0 = 77686-1) LYMPHOCYTES % (test code 25.8 % 20.0-45.0 = 10715-8) MONOCYTES % (test code = 5.6 % 4.0-12.0 73943-2) EOSINOPHILS % (test code 1.9 % 0.0-7.0 = 29199-5) BASOPHILS % (test code = 0.3 % 0.0-2.0 53965-6) IMMATURE GRANULOCYTES 0.2 % 0.0-1.0 (test code = 56373-3) NUCLEATED RBC'S See_Comment Unless Othe rwise MYELOPEROX STAIN (test Indic ated, All Testing code = 62763-6) Performed At : [facility], [address] [place] [id number] Laborator y Director: Parish Lees M.D. CLIA Number [id number] [employer] Acc[employer] [place]. [id number] [Autom ated message] The sy stem which generated this result transmit francine reference range : 0.00 - 0.11 K/UL. Th e reference range was not used to int erpret this result as normal/abnormal . PLATELET COUNT (test See_Comment [Autom ated message] code = 70798-8) The system w hich generated this result transmitted ref erence range: 130 - 40 0 K/UL. The reference r markus was not used to interpret this result as normal/abnor mal. NEUTROPHILS ABSOLUTE See_Comment [Autom ated message] COUNT (test code = The syste m which 32473-2) generated this result transmitted ref erence range: 1.50 - 7 .50 K/UL. The refer ence range was not u sed to interpret this result as normal/abnor mal. LYMPHOCYTES ABSOLUTE See_Comment [Autom ated message] COUNT (test code = The syste m which 27368-8) generated this result transmitted ref erence range: 1.00 - 4 .00 K/UL. The refer ence range was not u sed to interpret this result as normal/abnor mal. MONOCYTES ABSOLUTE COUNT See_Comment [A utomated message] (test code = 99781-8) The sy stem which generated this result transmitted ref erence range: 0.20 - 1 .00 K/UL. The refer ence range was not u sed to interpret this result as normal/abnor mal. BASOPHILS ABSOLUTE COUNT See_Comment [A utomated message] (test code = 54946-0) The sy stem which generated this result [...] to interpret this result as normal/abnor mal. [facility] identified [facility] Urine by [id number] 12:05:00Bacteria Ur CultMatagorda Medical Groupantibiotic sensitivity testing, [id number] 12:05:00 Test Item Value Reference Range Interpretation [...] Minimum inhibitory concentration (VIVIENNE) (test code = 20248-1) cefTAZidime [Susceptibility] by <=2 Minimum inhibitory concentration (VIVIENNE) (test code = 133-9) cefTRIAXone [Susceptibility] by <=1 Minimum inhibitory concentration (VIVIENNE) (test code = 141-2) Ciprofloxacin [Susceptibility] by >2 Minimum inhibitory concentration (VIVIENNE) (test code = 185-9) Ampicillin+Sulbactam =16/8 [Susceptibility] by Minimum inhibitory concentration (VIVIENNE) (test code = 32-3) Ertapenem [Susceptibility] by <=0.25 Minimum inhibitory concentration (VIVIENNE) (test code = 02947-0) Aztreonam [Susceptibility] by <=2 Minimum inhibitory concentration (VIVIENNE) (test code = 44-8) Cefepime [Susceptibility] by <=1 Minimum inhibitory concentration (VIVIENNE) (test code = 6644-9) Meropenem [Susceptibility] by <=0.5 Minimum inhibitory concentration (VIVIENNE) (test code = 6652-2) Moxifloxacin [Susceptibility] by >4 Minimum inhibitory concentration (VIVIENNE) (test code = 50061-9) Amikacin [Susceptibility] by <=8 Minimum inhibitory concentration (VIVIENNE) (test code = 12-5) Piperacillin+Tazobactam =64/4 [Susceptibility] by Minimum inhibitory concentration (VIVIENNE) (test code = 412-7) Ceftaroline [Susceptibility] by 0.5 ug/mL Minimum inhibitory concentration (VIVIENNE) (test code = 92455-0) Tigecycline [Susceptibility] by <=1 Minimum inhibitory concentration (VIVIENNE) (test code = 33474-3) [facility] UnitUrinalysis macro (dipstick) panel - [id number] 14:46:00 Test Item Value Reference Range Interpretation Comments Leukocytes (test code = Leukocytes) Large Nitrite (test code = Nitrite) positive Urobilinogen (test code = 8 Urobilinogen) Protein (test code = Protein) 100 pH (test code = pH) 7.0 Blood (test code = Blood) Negative Specific [place] (test code = 1.020 Specific [place]) Ketone (test code = Ketone) Small Bilirubin (test code = Bilirubin) Moderate Glucose (test code = Glucose) 250 Appearance (test code = Appearance) Turbid Color (test code = Color) Red [facility] UnitBacteria identified in Urine by [id number] 06:29:00Bacteria Ur [facility], [id number] 06:29:00 Test Item Value Reference Range Interpretation [...] Minimum inhibitory concentration (VIVIENNE) (test code = 84462-8) Ciprofloxacin [Susceptibility] by <1 Minimum inhibitory concentration (VIVIENNE) (test code = 185-9) Linezolid [Susceptibility] by Minimum <2 inhibitory concentration (VIVIENNE) (test code = 84306-1) DAPTOmycin [Susceptibility] by <1 Minimum inhibitory concentration (VIVIENNE) (test code = 11969-4) [facility] UnitUrinalysis macro (dipstick) panel - [id number] 15:20:00 Test Item Value Reference Range Interpretation Comments Leukocytes (test code = Leukocytes) Negative Nitrite (test code = Nitrite) positive Urobilinogen (test code = 1 Urobilinogen) Protein (test code = Protein) Trace pH (test code = pH) 7.0 Blood (test code = Blood) Negative Specific [place] (test code = 1.015 Specific [place]) Ketone (test code = Ketone) Negative Bilirubin (test code = Bilirubin) Small Glucose (test code = Glucose) 100 Appearance (test code = Appearance) Cloudy Color (test code = Color) Yellow [facility] UnitUrinalysis macro (dipstick) panel - [id number] 12:11:00 Test Item Value Reference Range Interpretation Comments Leukocytes (test code = Leukocytes) Large Nitrite (test code = Nitrite) positive Urobilinogen (test code = 2 Urobilinogen) Protein (test code = Protein) 30 pH (test code = pH) 6.0 Blood (test code = Blood) Negative Specific [place] (test code = 1.010 Specific [place]) Ketone (test code = Ketone) Trace Bilirubin (test code = Bilirubin) Small Glucose (test code = Glucose) 100 Appearance (test code = Appearance) Cloudy Color (test code = Color) Baxter [facility] UnitUrinalysis macro (dipstick) panel - [id number] 12:11:00 Test Item Value Reference Range Interpretation Comments Leukocytes (test code = Leukocytes) Large Nitrite (test code = Nitrite) positive Urobilinogen (test code = 2 Urobilinogen) Protein (test code = Protein) 30 pH (test code = pH) 6.0 Blood (test code = Blood) Negative Specific [place] (test code = 1.010 Specific [place]) Ketone (test code = Ketone) Trace Bilirubin (test code = Bilirubin) Small Glucose (test code = Glucose) 100 Appearance (test code = Appearance) Cloudy Color (test code = Color) Baxter [facility] UnitUrinalysis macro (dipstick) panel - [id number] 12:11:00 Test Item Value Reference Range Interpretation Comments Leukocytes (test code = Leukocytes) Large Nitrite (test code = Nitrite) positive Urobilinogen (test code = 2 Urobilinogen) Protein (test code = Protein) 30 pH (test code = pH) 6.0 Blood (test code = Blood) Negative Specific [place] (test code = 1.010 Specific [place]) Ketone (test code = Ketone) Trace Bilirubin (test code = Bilirubin) Small Glucose (test code = Glucose) 100 Appearance (test code = Appearance) Cloudy Color (test code = Color) Baxter [facility] GroupBacteria identified in Urine by [id number] 10:44:00 Test Item Value Reference Range Interpretation Comments Bacteria identified in no growth at 2 days Urine by Culture (test code = 630-4) [facility] UnitMR, PELVIS, WITHOUT / WITH IV [id number] 10:43:00 Please order enterography protocol to assess the small bowel for Crohn's diseaseMRI ENTEROGRAPHY (SMALL BOWEL EVALUATION)Unlisted Reason for Exam - Click Yes and Enter Reason Below->YesUnlisted Reason for Exam->Crohn's disease of both small and large intestine without complication (HCCode) (K50.80) [facility] 1970 Sex: FFINAL REPORT TECHNIQUE: MRI ENTEROGRAPHY WITHOUT and WITH intravenous contrast. INDICATION: Crohn's disease of both small and large intestine. COMPARISON: CT 06/19/2019. FINDINGS: There is an implanted generator pack for spinal stimulator device in the right anterior abdominal wall. The subselectively artifact from the metallic device limits evaluation of the right hemiabdomen. LOWER THORAX: Unremarkable. LIVER: No hepatic signal abnormality. No focal hepatic lesions. BILIARY: Prior cholecystectomy.. There is prominence of the common bile duct measuring up to 0.8 cm likely relatedto reservoir effect from prior cholecystectomy. No significant intrahepatic biliary dilatation. SPLEEN: No splenomegaly.PANCREAS: No focal masses or ductal dilatation. ADRENALS: No adrenal nodules.KIDNEYS/URETERS: No hydronephrosis or solid mass lesions. 3.3 cm cyst in the upper pole of the left kidney. 1.4 cm cyst in the upper pole of the right kidney. Few additional subcentimeter cysts in the left k idney. PELVIC ORGANS/BLADDER: Prior hysterectomy. No adnexal mass. [...] thickening. There is moderate stool in colon. The previously suggested wall thickening of the distal colon [...] MDReport Verified Date/Time: 11/23/2020 10:43:40 Reading Location: [facility] Diagnostic Imaging Reading Room - [place] [address] MR, ABDOMEN, WITHOUT / WITH IV CONTRAST 2020-11-23 10:43:00Please order enterography protocol to assess the small bowel for Crohn's diseaseMRI ENTEROGRAPHY (SMALL BOWEL EVALUATION)Unlisted Reason for Exam - Click Yes and Enter Reason Below->YesUnlisted Reason for Exam- >Crohn's disease of both small and large intestine without complication (HCCode) (K50.80)[facility] : 1970 Sex: FFINAL REPORT TECHNIQUE: MRI ENTEROGRAPHY WITHOUT and WITH intravenous contrast. INDICATION: Crohn's disease of both small and large intestine. COMPARISON: CT 06/19/2019. FINDINGS: There is an implanted generator pack for spinal stimulator device in the right anterior abdominal wall. The subselectively artifact from the metallic device limits evaluation of the right hemiabdomen. LOWER THORAX: Unremarkable. LIVER: No hepatic signal abnormality. No focal hepatic lesions. BILIARY: Prior cholecystectomy.. There is prominence of the common bile duct measuring up to 0.8 cm likely relatedto reservoir effect from prior cholecystectomy. No significant intrahepatic biliary dilatation. SPLEEN: No splenomegaly.PANCREAS: No focal masses or ductal dilatation. ADRENALS: No adrenal nodules.KIDNEYS/URETERS: No hydronephrosis or solid mass lesions. 3.3 cm cyst in the upper pole of the left kidney. 1.4 cm cyst in the upper pole of the right kidney. Few additional subcentimeter cysts in the left k idney. PELVIC ORGANS/BLADDER: Prior hysterectomy. No adnexal mass. [...] thickening. There is moderate stool in colon. The previously suggested wall thickening of the distal colon [...] MDReport Verified Date/Time: 11/23/2020 10:43:40 Reading Location: [facility] Diagnostic Imaging Reading Room - [place] [address] [id number] Urinalysis macro (dipstick) panel - Urine 2020-11-17 14:29:00 Test Item Value Reference Range Interpretation Comments Leukocytes (test code = Negative Leukocytes) Nitrite (test code = Nitrite) positive Urobilinogen (test code = .2 Urobilinogen) Protein (test code = Protein) Negative pH (test code = pH) 7.0 Blood (test code = Blood) Negative Specific [place] (test code = 1.025 Specific [place]) Ketone (test code = Ketone) Negative Bilirubin (test code = Bilirubin) Negative Glucose (test code = Glucose) Negative Appearance (test code = Cloudy Appearance) Color (test code = Color) Dark Yellow [facility] UnitUrinalysis macro (dipstick) panel - [id number] 14:29:00 Test Item Value Reference Range Interpretation Comments Leukocytes (test code = Negative Leukocytes) Nitrite (test code = Nitrite) positive Urobilinogen (test code = .2 Urobilinogen) Protein (test code = Protein) Negative pH (test code = pH) 7.0 Blood (test code = Blood) Negative Specific [place] (test code = 1.025 Specific [place]) Ketone (test code = Ketone) Negative Bilirubin (test code = Bilirubin) Negative Glucose (test code = Glucose) Negative Appearance (test code = Cloudy Appearance) Color (test code = Color) Dark Yellow [facility] UnitUrinalysis macro (dipstick) panel - [id number] 14:29:00 Test Item Value Reference Range Interpretation Comments Leukocytes (test code = Negative Leukocytes) Nitrite (test code = Nitrite) positive Urobilinogen (test code = .2 Urobilinogen) Protein (test code = Protein) Negative pH (test code = pH) 7.0 Blood (test code = Blood) Negative Specific [place] (test code = 1.025 Specific [place]) Ketone (test code = Ketone) Negative Bilirubin (test code = Bilirubin) Negative Glucose (test code = Glucose) Negative Appearance (test code = Cloudy Appearance) Color (test code = Color) Dark Yellow [facility]Bacteria identified in Urine by [id number] 12:21:00Bacteria Ur CultMotagoa Medical GroupBacteria identified in Urine by [id number] 12:21:00Bacteria Ur CultMotaconnecticut [facility] Medical GroupBacteria identified in Urine by [id number] 12:21:00Bacteria Ur CultMataconnecticut [facility] Medical GroupUrinalysis macro (dipstick) panel - [id number] 14:00:55 Test Item Value Reference Range Interpretation Comments Leukocytes (test code = Leukocytes) Negative Nitrite (test code = Nitrite) positive Urobilinogen (test code = .2 Urobilinogen) Protein (test code = Protein) 30 pH (test code = pH) 6.0 Blood (test code = Blood) Negative Specific [place] (test code = 1.020 Specific [place]) Ketone (test code = Ketone) Trace Bilirubin (test code = Bilirubin) Small Glucose (test code = Glucose) 100 Appearance (test code = Appearance) Turbid Color (test code = Color) Baxter [facility] UnitUrinalysis macro (dipstick) panel - [id number] 14:00:55 Test Item Value Reference Range Interpretation Comments Leukocytes (test code = Leukocytes) Negative Nitrite (test code = Nitrite) positive Urobilinogen (test code = .2 Urobilinogen) Protein (test code = Protein) 30 pH (test code = pH) 6.0 Blood (test code = Blood) Negative Specific [place] (test code = 1.020 Specific [place]) Ketone (test code = Ketone) Trace Bilirubin (test code = Bilirubin) Small Glucose (test code = Glucose) 100 Appearance (test code = Appearance) Turbid Color (test code = Color) Baxter [facility] [id number] 10:40:00 Test Item Value Reference Range Interpretation Comments Coronavirus (COVID-19) Not Detected (08/03/20 JULISSA (test code = 5:40 AM) Coronavirus (COVID-19) JULISSA) [facility] [id number] 10:32:00 Test Item Value Reference Range Interpretation Comments quest collection (test code = quest quest collection) [facility] Unitquest [id number] 10:32:00 Test Item Value Reference Range Interpretation Comments quest collection (test code = quest quest collection) [facility] [id number] 17:04:00 Test Item Value Reference Range Interpretation Comments ABO/Rh (test code = ABO/Rh) A POS [facility] [id number] 17:04:00 Test Item Value Reference Range Interpretation Comments Antibody Scrn (test Negative (05/11/20 code = Antibody Scrn) 11:04 AM) [facility] ([facility]OVID-19) Ag [Presence] in Respiratory specimen by Rapid [id number] 12:34:00 Test Item Value Reference Range Interpretation Comments SARS-CoV - 2 (test code = SARS-CoV - negative 2) [facility] UnitUrinalysis macro (dipstick) panel - [id number] 11:41:00 Test Item Value Reference Range Interpretation Comments Leukocytes (test code = Leukocytes) Negative Nitrite (test code = Nitrite) negative Urobilinogen (test code = 1 Urobilinogen) Protein (test code = Protein) Negative pH (test code = pH) 7.0 Blood (test code = Blood) Negative Specific [place] (test code = 1.025 Specific [place]) Ketone (test code = Ketone) Negative Bilirubin (test code = Bilirubin) Small Glucose (test code = Glucose) Negative Appearance (test code = Appearance) Cloudy Color (test code = Color) Yellow [facility] UnitUrinalysis macro (dipstick) panel - [id number] 11:41:00 Test Item Value Reference Range Interpretation Comments Leukocytes (test code = Leukocytes) Negative Nitrite (test code = Nitrite) negative Urobilinogen (test code = 1 Urobilinogen) Protein (test code = Protein) Negative pH (test code = pH) 7.0 Blood (test code = Blood) Negative Specific [place] (test code = 1.025 Specific [place]) Ketone (test code = Ketone) Negative Bilirubin (test code = Bilirubin) Small Glucose (test code = Glucose) Negative Appearance (test code = Appearance) Cloudy Color (test code = Color) Yellow [facility] UnitHemoglobin A1c [Mass/volume] in [id number] 11:30:00 Test Item Value Reference Range Interpretation Comments Hemoglobin A1c [Mass/volume] in Blood 5.8 % 4.0-6.0 (test code = 48954-3) [facility] UnitComprehensive metabolic 2000 panel - Serum or Plasma [...] Serum or Plasma (test code = 6768-6) [facility] UnitMagnesium [Moles/volume] in Unspecified specimen 2020-05-04 11:30:00 Test Item Value Reference Range Interpretation Comments magnesium level (test code = 2.1 mg/dL 1.6-2.6 magnesium level) [facility] UnitCreatine kinase [Enzymatic activity/volume] in Serum or [id number] 11:30:00 Test Item Value Reference Range Interpretation Comments creatine kinase (test code = creatine 49 U/L 20-180 kinase) [facility] UnitPT/[id number] 11:30:00 Test Item Value Reference Range Interpretation Comments prothrombin time (test code = 9.9 seconds 10.3-12.3 L prothrombin time) INR in Blood by Coagulation assay 0.92 (test code = 48525-3) [facility] Unitpartial thromboplastin [id number] 11:30:00 Test Item Value Reference Range Interpretation Comments INR in Blood by Coagulation 27.1 seconds 22.5-37.0 assay (test code = 90764-0) [facility] UnitUrinalysis complete W Reflex Culture panel - Urine 2020-05-04 11:30:00 Test Item Value Reference Range Interpretation Comments Color of Urine by Auto (test dark yellow code = 99644-3) Appearance of Urine (test code clear clear = 5767-9) Glucose [Presence] in Urine by negative negative Automated test strip (test code = 22708-6) Bilirubin.total [Mass/volume] negative negative in Urine (test code = 1978-6) Ketones [Mass/volume] in Urine negative negative by Automated test strip (test code = 42941-2) Specific gravity of Urine by 1.025 1.003-1.030 Automated test strip (test code = 14723-2) blood urine (test code = blood negative negative urine) pH of Urine (test code = 7.500 5-9 7986-5) protein urine (UA) (test code = trace negative protein urine (UA)) Urobilinogen [Presence] in =2.0 0.2-1.0 H Urine (test code = 82800-4) Nitrite [Presence] in Urine by negative negative Test strip (test code = 5802-4) Leukocyte esterase [Presence] negative negative in Urine by Automated test strip (test code = 27943-2) Erythrocytes [#/volume] in =1-5 0-5 Urine by Automated count (test code = 798-9) Leukocytes [#/area] in Urine <1 0-5 sediment by Automated count (test code = 30208-6) Epithelial cells [Presence] in =6-10 0-5 Urine sediment by Light microscopy (test code = 35751-2) Bacteria identified in Urine by none detected none detect Culture (test code = 630-4) Casts [#/area] in Urine =2-5 none detect sediment by Automated count (test code = 61942-5) urine culture added? (test code no = urine culture added?) [facility] UnitThyrotropin [Units/volume] in Serum or [id number] 11:30:00 Test Item Value Reference Range Interpretation Comments Thyrotropin [Units/volume] in 4.22 uIU/mL 0.36-3.74 H Serum or Plasma (test code = 3016-3) [facility] UnitThyroxine (T4) free [Mass/volume] in Serum or Plasma 2020-05-04 11:30:00 Test Item Value Reference Range Interpretation Comments free T4 (test code = free T4) 1.27 NG/dL 0.93-1.7 [facility] UnitTriiodothyronine (T3) Free [Mass/volume] in Serum or [id number] 11:30:00 Test Item Value Reference Range Interpretation Comments free T3 (test code = free T3) 2.89 pg/mL 2.0-4.4 [facility] W Auto Differential panel - [id number] 11:30:00 Test Item Value Reference Range Interpretation Comments white blood count (test code = 5.9 K/uL 4.0-11.5 white blood count) red blood count (test code = red 4.02 M/uL 3.80-5.20 blood count) hemoglobin (test code = 12.8 g/dL 10.5-15.7 hemoglobin) hematocrit (test code = 40.4 % 34.0-50.0 hematocrit) MCV [Entitic volume] (test code = 100.5 fL 86-100 H 51235-4) mean corpuscular hemoglobin (test 31.8 pg 26.2-33.4 [...] 44.4-80.1 leukocytes in Blood (test code = 35143-3) Immature granulocytes [#/volume] 0.0 K/uL 0.0-0.03 in Blood (test code = 72125-6) lymphocyte% (test code = 35.9 % 10.0-50.0 lymphocyte%) mono % (test code = mono %) 4.7 % 3.6-12.0 eos % (test code = eos %) 2.2 % 0.0-5.4 Basophils/100 leukocytes in 0.5 % 0.1-1.2 Unspecified specimen (test code = 88858-1) Band form neutrophils [#/volume] 3.35 K/uL 1.56-6.13 in Blood (test code = 96914-7) Lymphocytes [#/volume] in 2.1 K/uL 1.18-3.74 Unspecified specimen by Automated count (test code = 26984-2) mono # (test code = mono #) 0.28 K/uL 0.24-0.86 eos # (test code = eos #) 0.13 K/uL 0.04-0.36 basophil # (test code = basophil 0.03 K/uL 0.01-0.08 #) NRBC% (test code = NRBC%) 0 /100 WBC 0-0.2 NRBC# (test code = NRBC#) 0 K/uL [facility] UnitDifferential panel, method unspecified - [id number] 11:30:00NeutrophilsBandLymphocyteAtypical LymphMonocyteEosinophilBasophilMetamyelocyteAbs Neutrophil Count (Man)Abs Lymph Count (Man)Abs Monocyte Count (Man)Abs Eosinophil Count (Man)Abs Basophil Count (Man)Platelet EstimateMatagorda Medical GroupHemoglobin A1c/Hemoglobin.total in [id number] 11:30:00 Test Item Value Reference Range Interpretation Comments Hemoglobin A1c [Mass/volume] in Blood 5.8 % 4.0-6.0 (test code = 25514-3) [facility] UnitCom[facility] 2000 panel - Serum or Plasma [...] Serum or Plasma (test code = 6768-6) [facility] UnitMagnesium [Moles/volume] in Unspecified specimen 2020-05-04 11:30:00 Test Item Value Reference Range Interpretation Comments magnesium level (test code = 2.1 mg/dL 1.6-2.6 magnesium level) [facility] UnitCreatine kinase [Enzymatic activity/volume] in Serum or [id number] 11:30:00 Test Item Value Reference Range Interpretation Comments creatine kinase (test code = creatine 49 U/L 20-180 kinase) [facility] GroupPT/[id number] 11:30:00 Test Item Value Reference Range Interpretation Comments prothrombin time (test code = 9.9 seconds 10.3-12.3 L prothrombin time) INR in Blood by Coagulation assay 0.92 (test code = 37235-2) [facility] UnitPT and aPTT panel - Platelet poor plasma by Coagulation [id number] 11:30:00 Test Item Value Reference Range Interpretation Comments INR in Blood by Coagulation 27.1 seconds 22.5-37.0 assay (test code = 21417-4) [facility] UnitUrinalysis complete W Reflex Culture panel - Urine 2020-05-04 11:30:00 Test Item Value Reference Range Interpretation Comments Color of Urine by Auto (test dark yellow code = 76709-2) Appearance of Urine (test code clear clear = 5767-9) Glucose [Presence] in Urine by negative negative Automated test strip (test code = 58338-5) Bilirubin.total [Mass/volume] negative negative in Urine (test code = 1978-6) Ketones [Mass/volume] in Urine negative negative by Automated test strip (test code = 03253-0) Specific gravity of Urine by 1.025 1.003-1.030 Automated test strip (test code = 96801-0) blood urine (test code = blood negative negative urine) pH of Urine (test code = 7.500 5-9 2756-5) protein urine (UA) (test code = trace negative protein urine (UA)) Urobilinogen [Presence] in =2.0 0.2-1.0 H Urine (test code = 01199-0) Nitrite [Presence] in Urine by negative negative Test strip (test code = 5802-4) Leukocyte esterase [Presence] negative negative in Urine by Automated test strip (test code = 44607-2) Erythrocytes [#/volume] in =1-5 0-5 Urine by Automated count (test code = 798-9) Leukocytes [#/area] in Urine <1 0-5 sediment by Automated count (test code = 78772-8) Epithelial cells [Presence] in =6-10 0-5 Urine sediment by Light microscopy (test code = 98016-5) Bacteria identified in Urine by none detected none detect Culture (test code = 630-4) Casts [#/area] in Urine =2-5 none detect sediment by Automated count (test code = 23103-4) urine culture added? (test code no = urine culture added?) [facility] UnitThyrotropin [Units/volume] in Serum or [id number] 11:30:00 Test Item Value Reference Range Interpretation Comments Thyrotropin [Units/volume] in 4.22 uIU/mL 0.36-3.74 H Serum or Plasma (test code = 3016-3) [facility] UnitThyroxine (T4) free [Mass/volume] in Serum or Plasma 2020-05-04 11:30:00 Test Item Value Reference Range Interpretation Comments free T4 (test code = free T4) 1.27 NG/dL 0.93-1.7 [facility] UnitTriiodothyronine (T3) Free [Mass/volume] in Serum or [id number] 11:30:00 Test Item Value Reference Range Interpretation Comments free T3 (test code = free T3) 2.89 pg/mL 2.0-4.4 [facility] W Auto Differential panel - [id number] 11:30:00 Test Item Value Reference Range Interpretation Comments white blood count (test code = 5.9 K/uL 4.0-11.5 white blood count) red blood count (test code = red 4.02 M/uL 3.80-5.20 blood count) hemoglobin (test code = 12.8 g/dL 10.5-15.7 hemoglobin) hematocrit (test code = 40.4 % 34.0-50.0 hematocrit) MCV [Entitic volume] (test code = 100.5 fL 86-100 H 82688-8) mean corpuscular hemoglobin (test 31.8 pg 26.2-33.4 [...] 44.4-80.1 leukocytes in Blood (test code = 84906-1) Immature granulocytes [#/volume] 0.0 K/uL 0.0-0.03 in Blood (test code = 65238-0) lymphocyte% (test code = 35.9 % 10.0-50.0 lymphocyte%) mono % (test code = mono %) 4.7 % 3.6-12.0 eos % (test code = eos %) 2.2 % 0.0-5.4 Basophils/100 leukocytes in 0.5 % 0.1-1.2 Unspecified specimen (test code = 54740-8) Band form neutrophils [#/volume] 3.35 K/uL 1.56-6.13 in Blood (test code = 74189-5) Lymphocytes [#/volume] in 2.1 K/uL 1.18-3.74 Unspecified specimen by Automated count (test code = 57643-5) mono # (test code = mono #) 0.28 K/uL 0.24-0.86 eos # (test code = eos #) 0.13 K/uL 0.04-0.36 basophil # (test code = basophil 0.03 K/uL 0.01-0.08 #) NRBC% (test code = NRBC%) 0 /100 WBC 0-0.2 NRBC# (test code = NRBC#) 0 K/uL [facility] UnitDifferential panel, method unspecified - [id number] 11:30:00NeutrophilsBandLymphocyteAtypical LymphMonocyteEosinophilBasophilMetamyelocyteAbs Neutrophil Count (Man)Abs Lymph Count (Man)Abs Monocyte Count (Man)Abs Eosinophil Count (Man)Abs Basophil Count (Man)Platelet EstimateMaDiamond Grove CenterUrinalysis macro (dipstick) panel - [id number] 14:27:39 Test Item Value Reference Range Interpretation Comments Leukocytes (test code = Leukocytes) Negative Nitrite (test code = Nitrite) negative Urobilinogen (test code = .2 Urobilinogen) Protein (test code = Protein) Negative pH (test code = pH) 7.0 Blood (test code = Blood) Negative Specific [place] (test code = 1.010 Specific [place]) Ketone (test code = Ketone) Negative Bilirubin (test code = Bilirubin) Negative Glucose (test code = Glucose) Negative Appearance (test code = Appearance) Clear Color (test code = Color) Yellow [facility] UnitBacteria identified in Urine by [id number] 00:00:00 Test Item Value Reference Range Interpretation Comments Bacteria identified in Urine by comment Culture (test code = 630-4) [facility] UnitFollitropin [Units/volume] in Serum or [id number] 00:00:00 Test Item Value Reference Range Interpretation Comments Follitropin [Units/volume] in 0.5 mIU/mL Serum or Plasma (test code = 35125-0) [facility] UnitEstradiol (E2) [Mass/volume] in Serum or [id number] 00:00:00 Test Item Value Reference Range Interpretation Comments Estradiol (E2) [Mass/volume] in 47.3 pg/mL Serum or Plasma (test code = 2243-4) [facility] UnitUrinalysis macro (dipstick) panel - [id number] 13:53:54 Test Item Value Reference Range Interpretation Comments Leukocytes (test code = Leukocytes) Negative Nitrite (test code = Nitrite) positive Urobilinogen (test code = .2 Urobilinogen) Protein (test code = Protein) Negative pH (test code = pH) 6.5 Blood (test code = Blood) Negative Specific [place] (test code = 1.020 Specific [place]) Ketone (test code = Ketone) Negative Bilirubin (test code = Bilirubin) Negative Glucose (test code = Glucose) Negative Appearance (test code = Appearance) Clear Color (test code = Color) Yellow [facility] UnitUrinalysis macro (dipstick) panel - [id number] 13:53:54 Test Item Value Reference Range Interpretation Comments Leukocytes (test code = Leukocytes) Negative Nitrite (test code = Nitrite) positive Urobilinogen (test code = .2 Urobilinogen) Protein (test code = Protein) Negative pH (test code = pH) 6.5 Blood (test code = Blood) Negative Specific [place] (test code = 1.020 Specific [place]) Ketone (test code = Ketone) Negative Bilirubin (test code = Bilirubin) Negative Glucose (test code = Glucose) Negative Appearance (test code = Appearance) Clear Color (test code = Color) Yellow [facility] UnitTISSUE [id number] 12:49:00Surgical Pathology Report Case: [id number] Authorizing Provider: April Mock MD Collected: 01/09/2020 02:19 PM Ordering Location: [facility] END[facility]COPY Received: 01/09/2020 04:37 PM SERVICES Pathologist: Flavia Lazar MD Specimens: A) - Biopsy, Terminal Ileum, terminal ileum bx B) - Colon Biopsy, Random, random colonic bx A. SMALL BOWEL, TERMINAL ILEUM, BIOPSIES: - CHRONIC ACTIVE ILEITISB. COLON, RANDOM BIOPSIES: - REACTIVE CHANGENZK/pl Signing Pathologist Direct Phone Line: [phone] signed by Flavia Lazar MD on 01/13/2020 at 12:49 [id number] and postoperative diagnoses: Crohn's disease of both [...] patient's name, medical record number and "colon bi opsy, random" are five pieces of rodriguez-pink soft tissue ranging in size from 0.2 x 0.2 x 0.1 cm to 0.4x 0.3 x 0.2 cm. The specimen is submitted in toto in cassette B1. AA/Bia. Terminal ileal mucosa is reactive with increased Paneth cells and neutrophilic infiltration of glands. No CMV, dysplasia or carcinoma is seen.B. No distortion of architecture, cryptitis, crypt abscess, microscopic colitis, dysplasia or malignancy is seen.[facility] blood [id number] 01:29:00 Test Item Value Reference Range Interpretation Comments [facility] blood collection sent to [facility] (test code = [facility] blood collection) [facility] UnitUrinalysis macro (dipstick) panel - [id number] 15:18:00 Test Item Value Reference Range Interpretation Comments Leukocytes (test code = Negative Leukocytes) Nitrite (test code = Nitrite) negative Urobilinogen (test code = 1 Urobilinogen) Protein (test code = Protein) Trace pH (test code = pH) 6.0 Blood (test code = Blood) Negative Specific [place] (test code = 1.030 Specific [place]) Ketone (test code = Ketone) Negative Bilirubin (test code = Bilirubin) Small Glucose (test code = Glucose) Negative Appearance (test code = Clear Appearance) Color (test code = Color) Dark Yellow [facility] UnitUrinalysis macro (dipstick) panel - [id number] 15:18:00 Test Item Value Reference Range Interpretation Comments Leukocytes (test code = Negative Leukocytes) Nitrite (test code = Nitrite) negative Urobilinogen (test code = 1 Urobilinogen) Protein (test code = Protein) Trace pH (test code = pH) 6.0 Blood (test code = Blood) Negative Specific [place] (test code = 1.030 Specific [place]) Ketone (test code = Ketone) Negative Bilirubin (test code = Bilirubin) Small Glucose (test code = Glucose) Negative Appearance (test code = Clear Appearance) Color (test code = Color) Dark Yellow [facility] UnitComprehensive metabolic 2000 panel - Serum or Plasma [...] Serum or Plasma (test code = 6768-6) [facility] UnitComprehensive metabolic 2000 panel - Serum or Plasma [...] Serum or Plasma (test code = 6768-6) [facility] blood [id number] 10:15:00 Test Item Value Reference Range Interpretation Comments [facility] blood [facility]) [facility] blood [id number] 10:15:00 Test Item Value Reference Range Interpretation Comments [facility] ([facility] = [facility] blood [facility]) [facility] UnitUrinalysis macro (dipstick) panel - [id number] 14:31:00 Test Item Value Reference Range Interpretation Comments Leukocytes (test code = Leukocytes) Negative Nitrite (test code = Nitrite) negative Urobilinogen (test code = .2 Urobilinogen) Protein (test code = Protein) Negative pH (test code = pH) 6.5 Blood (test code = Blood) Negative Specific [place] (test code = 1.025 Specific [place]) Ketone (test code = Ketone) Negative Bilirubin (test code = Bilirubin) Negative Glucose (test code = Glucose) Negative Appearance (test code = Appearance) Cloudy Color (test code = Color) Yellow [facility] UnitUrinalysis macro (dipstick) panel - [id number] 14:31:00 Test Item Value Reference Range Interpretation Comments Leukocytes (test code = Leukocytes) Negative Nitrite (test code = Nitrite) negative Urobilinogen (test code = .2 Urobilinogen) Protein (test code = Protein) Negative pH (test code = pH) 6.5 Blood (test code = Blood) Negative Specific [place] (test code = 1.025 Specific [place]) Ketone (test code = Ketone) Negative Bilirubin (test code = Bilirubin) Negative Glucose (test code = Glucose) Negative Appearance (test code = Appearance) Cloudy Color (test code = Color) Yellow [facility] UnitCT, [id number] 10:26:00ENTEROGRAPHYFINAL REPORT CT of the abdomen and [...] degenerative change. A mild wedge-shaped deformity of O0rpuswpsly body is chronic. There is a right-sided [...] CENTER C013X Ortho Consult Reading Room quest [id number] 10:45:00 Test Item Value Reference Range Interpretation Comments quest collection (test code = quest quest collection) [facility] UnitCandida sp DNA [Presence] in Vaginal fluid by Probe and target amplification [id number] 00:00:00 Test Item Value Reference Range Interpretation [...] code = ye glabrata by real-time PCR) [facility] UnitUrinalysis macro (dipstick) panel - [id number] 13:42:54 Test Item Value Reference Range Interpretation Comments Leukocytes (test code = Leukocytes) Negative Nitrite (test code = Nitrite) negative Urobilinogen (test code = .2 Urobilinogen) Protein (test code = Protein) Negative pH (test code = pH) 7.0 Blood (test code = Blood) Negative Specific [place] (test code = 1.015 Specific [place]) Ketone (test code = Ketone) Trace Bilirubin (test code = Bilirubin) Small Glucose (test code = Glucose) Negative Appearance (test code = Appearance) Clear Color (test code = Color) Yellow [facility] UnitUrinalysis macro (dipstick) panel - [id number] 13:42:54 Test Item Value Reference Range Interpretation Comments Leukocytes (test code = Leukocytes) Negative Nitrite (test code = Nitrite) negative Urobilinogen (test code = .2 Urobilinogen) Protein (test code = Protein) Negative pH (test code = pH) 7.0 Blood (test code = Blood) Negative Specific [place] (test code = 1.015 Specific [place]) Ketone (test code = Ketone) Trace Bilirubin (test code = Bilirubin) Small Glucose (test code = Glucose) Negative Appearance (test code = Appearance) Clear Color (test code = Color) Yellow [facility] UnitUrinalysis macro (dipstick) panel - [id number] 10:18:17 Test Item Value Reference Range Interpretation Comments Leukocytes (test code = Leukocytes) Negative Nitrite (test code = Nitrite) negative Urobilinogen (test code = .2 Urobilinogen) Protein (test code = Protein) Negative pH (test code = pH) 6.5 Blood (test code = Blood) Negative Specific [place] (test code = 1.010 Specific [place]) Ketone (test code = Ketone) Negative Bilirubin (test code = Bilirubin) Negative Glucose (test code = Glucose) Negative Appearance (test code = Appearance) Clear Color (test code = Color) Yellow [facility] UnitUrinalysis macro (dipstick) panel - [id number] 10:18:17 Test Item Value Reference Range Interpretation Comments Leukocytes (test code = Leukocytes) Negative Nitrite (test code = Nitrite) negative Urobilinogen (test code = .2 Urobilinogen) Protein (test code = Protein) Negative pH (test code = pH) 6.5 Blood (test code = Blood) Negative Specific [place] (test code = 1.010 Specific [place]) Ketone (test code = Ketone) Negative Bilirubin (test code = Bilirubin) Negative Glucose (test code = Glucose) Negative Appearance (test code = Appearance) Clear Color (test code = Color) Yellow [facility] UnitUrinalysis macro (dipstick) panel - [id number] 10:18:17 Test Item Value Reference Range Interpretation Comments Leukocytes (test code = Leukocytes) Negative Nitrite (test code = Nitrite) negative Urobilinogen (test code = .2 Urobilinogen) Protein (test code = Protein) Negative pH (test code = pH) 6.5 Blood (test code = Blood) Negative Specific [place] (test code = 1.010 Specific [place]) Ketone (test code = Ketone) Negative Bilirubin (test code = Bilirubin) Negative Glucose (test code = Glucose) Negative Appearance (test code = Appearance) Clear Color (test code = Color) Yellow [facility] UnitUrinalysis macro (dipstick) panel - [id number] 10:04:32 Test Item Value Reference Range Interpretation Comments Leukocytes (test code = Leukocytes) Negative Nitrite (test code = Nitrite) negative Urobilinogen (test code = .2 Urobilinogen) Protein (test code = Protein) Negative pH (test code = pH) 6.5 Blood (test code = Blood) Negative Specific [place] (test code = 1.010 Specific [place]) Ketone (test code = Ketone) Negative Bilirubin (test code = Bilirubin) Negative Glucose (test code = Glucose) Negative Appearance (test code = Appearance) Clear Color (test code = Color) Yellow [facility] UnitUrinalysis macro (dipstick) panel - [id number] 10:04:32 Test Item Value Reference Range Interpretation Comments Leukocytes (test code = Leukocytes) Negative Nitrite (test code = Nitrite) negative Urobilinogen (test code = .2 Urobilinogen) Protein (test code = Protein) Negative pH (test code = pH) 6.5 Blood (test code = Blood) Negative Specific [place] (test code = 1.010 Specific [place]) Ketone (test code = Ketone) Negative Bilirubin (test code = Bilirubin) Negative Glucose (test code = Glucose) Negative Appearance (test code = Appearance) Clear Color (test code = Color) Yellow [facility] UnitUrinalysis macro (dipstick) panel - [id number] 10:04:32 Test Item Value Reference Range Interpretation Comments Leukocytes (test code = Leukocytes) Negative Nitrite (test code = Nitrite) negative Urobilinogen (test code = .2 Urobilinogen) Protein (test code = Protein) Negative pH (test code = pH) 6.5 Blood (test code = Blood) Negative Specific [place] (test code = 1.010 Specific [place]) Ketone (test code = Ketone) Negative Bilirubin (test code = Bilirubin) Negative Glucose (test code = Glucose) Negative Appearance (test code = Appearance) Clear Color (test code = Color) Yellow [facility] GroupBacteria identified in Urine by [id number] 00:00:00Bacteria [facility]antib[facility], [id number] 00:00:00 Test Item Value Reference Range Interpretation [...] Minimum inhibitory concentration (VIVIENNE) (test code = 21737-7) Piperacillin+Tazobactam <16 [Susceptibility] by Minimum inhibitory concentration [...] <2 inhibitory concentration (VIVIENNE) (test code = 62489-9) Aztreonam [Susceptibility] by Minimum <8 inhibitory concentration (VIVIENNE) (test code = 44-8) Cefuroxime [Susceptibility] by Minimum <4 inhibitory concentration (VIVIENNE) (test code = 20628-3) Meropenem [Susceptibility] by Minimum <4 inhibitory concentration (VIVIENNE) (test code = 6652-2) [facility] UnitBacteria identified in Urine by [id number] 00:00:00Bacteria Ur [facility]antib[facility], [id number] 00:00:00 Test Item Value Reference Range Interpretation [...] Minimum inhibitory concentration (VIVIENNE) (test code = 55049-8) Piperacillin+Tazobactam <16 [Susceptibility] by Minimum inhibitory concentration [...] <2 inhibitory concentration (VIVIENNE) (test code = 09140-0) Aztreonam [Susceptibility] by Minimum <8 inhibitory concentration (VIVIENNE) (test code = 44-8) Cefuroxime [Susceptibility] by Minimum <4 inhibitory concentration (VIVIENNE) (test code = 05343-2) Meropenem [Susceptibility] by Minimum <4 inhibitory concentration (VIVIENNE) (test code = 6652-2) [facility] UnitMicroscopic observation [Identifier] in Cervix by Cyto stain.thin [id number] 00:00:00 Test Item Value Reference Range Interpretation Comments Human papilloma virus positive 16+18+31+33+35+39+45+51+52+56+58+59+ 68 DNA [Presence] in Cervix by Probe and signal amplification method (test code = 05369-1) results (test code = results) [facility] UnitBacteria identified in Urine by [id number] 02:14:00 Test Item Value Reference Range Interpretation Comments Bacteria identified in no growth at 48 hrs. Urine by Culture (test code = 630-4) [facility] GroupBacteria identified in Urine by [id number] 02:14:00 Test Item Value Reference Range Interpretation Comments Bacteria identified in no growth at 48 hrs. Urine by Culture (test code = 630-4) [facility] [id number] 08:01:00 Test Item Value Reference Range Interpretation Comments MAGNESIUM (BEAKER) 1.8 mg/dL 1.6-2.6 Specimen moderately (test code = 627) hemolyzed BASIC METABOLIC [id number] 08:01:00 Test Item Value Reference Range Interpretation [...] PATIEN TS. CBC W/PLT COUNT & AUTO [id number] 05:59:00 Test Item Value Reference Range Interpretation [...] 0-1 PERCENT (BEAKER) (test code = 2801) [id number] 07:04:00 Test Item Value Reference Range Interpretation Comments MAGNESIUM (BEAKER) (test code = 1.8 mg/dL 1.6-2.6 627) BASIC METABOLIC [id number] 07:04:00 Test Item Value Reference Range Interpretation [...] NOT APPLICABLE FOR DIALYSIS PATIEN TS. CORTISOL,60 [id number] 07:01:00 Test Item Value Reference Range Interpretation Comments CORTISOL BASELINE NETWORKED < mcg/dL (BEAKER) (test code = 0529) CORTISOL 30 MINUTE NETWORKED 6.0 mcg/dL (BEAKER) (test code = 6338) CORTISOL, 60 MINUTE (BEAKER) (test 7.0 ug/dL code = 1805) ACTH STIMULATION TEST INTERPRETATION GUIDELINES(Synonyms: Cortrosyn Test, Cosyntropin or Corticotropin Stimulation Test)Adenocorticotropic hormone (ACTH)is a tropic hormone, made in the pituitary gland, which travels trhough the bloodstream and stimulates the cortex of the adrenal glands to release co rtisol. Cortisol is a primary hormone, which aids the body's metabolism of fats, carbohydrates, and protein as well as sodium and potassium regulation.ACTH Stimulation Test: Exogenous administration ofbiologically active ACTH stimulates the secretion of cortisol [...] increase in cortisol after stimulation by ACTH isnormal. Post-stimulation cortisol concentration should be greater than 20 mcg/dL or the rate of risefrom baseline cortisol should be greater than or equal to 9 mcg/dL.Patients with sepsis or septic shock: According to a study by Padilla et al (MIGUEL 2000,283(8):1038-45), the ACTH Stimulation Test provides important prognostic information. This study defined 3 groups of patients with sepsis or septic shock: 1. Good Survival: Low basal cortisol (<or=34 mcg/dL) and high ACTH response (>9mcg/dL) 2.Intermediate Survival: Low basal cortisol (<34 mcg/dL) and low response to ACTH (<or=9 mcg/dL)OR High basal cortisol (>34 mcg/dL) or high ACTH response (>9 mcg/dL) 3. Poor Survival: High basal cortisol (>34 mcg/dL) and [...] Source.Do not run this test if systemic hydroco rtisone, methylprednisolone, prednisolone or prednisone has been administered within the past 24 hours. Draw baseline cortisol level just prior to cosyntropin administration. Administer cosyntropin 0.25 mg diluted in 2-5 mL of normal saline slow IV Push over a period of 2 minutes. Draw serum cortisol level 30 minutes after cosyntropin administration. Draw serum cortisol level 60 minutes after cosyntropin administration.CORTISOL,30 [id number] 07:01:00 Test Item Value Reference Range Interpretation [...] cortex of the adrenal glands to release co rtisol. Cortisol is a primary hormone, which aids the body's metabolism of fats, carbohydrates, and protein as well as sodium and potassium regulation.ACTH Stimulation Test: Exogenous administration ofbiologically active ACTH stimulates the secretion of cortisol [...] increase in cortisol after stimulation by ACTH isnormal. Post-stimulation cortisol concentration should be greater than 20 mcg/dL or the rate of risefrom baseline cortisol should be greater than or equal to 9 mcg/dL.Patients with sepsis or septic shock: According to a study by Padilla et al (MIGUEL 2000,283(8):6559-45), the ACTH Stimulation Test provides important prognostic information. This study defined 3 groups of patients with sepsis or septic shock: 1. Good Survival: Low basal cortisol (<or=34 mcg/dL) and high ACTH response (>9mcg/dL) 2.Intermediate Survival: Low basal cortisol (<34 mcg/dL) and low response to ACTH (<or=9 mcg/dL)OR High basal cortisol (>34 mcg/dL) or high ACTH response (>9 mcg/dL) 3. Poor Survival: High basal cortisol (>34 mcg/dL) and [...] Source.Do not run this test if systemic hydroco rtisone, methylprednisolone, prednisolone or prednisone has been administered within the past 24 hours. Draw baseline cortisol level just prior to cosyntropin administration. Administer cosyntropin 0.25 mg diluted in 2-5 mL of normal saline slow IV Push over a period of 2 minutes. Draw serum cortisol level 30 minutes after cosyntropin administration. Draw serum cortisol level 60 minutes after cosyntropin administration.CBC W/PLT COUNT & AUTO DIFFERENTIAL 2018-11-15 05:46:00 Test Item Value Reference Range Interpretation [...] 0-1 PERCENT (BEAKER) (test code = 2801) CORTISOL,[id number] 19:10:00 Test Item Value Reference Range Interpretation Comments CORTISOL, BASELINE (BEAKER) (test < ug/dL code = 1803) ACTH STIMULATION TEST INTERPRETATION GUIDELINES(Synonyms: Cortrosyn Test, Cosyntropin or Corticotropin Stimulation Test)Adenocorticotropic hormone (ACTH)is a tropic hormone, made in the pituitary gland, which travels trhough the bloodstream and stimulates the cortex of the adrenal glands to release co rtisol. Cortisol is a primary hormone, which aids the body's metabolism of fats, carbohydrates, and protein as well as sodium and potassium regulation.ACTH Stimulation Test: Exogenous administration ofbiologically active ACTH stimulates the secretion of cortisol [...] increase in cortisol after stimulation by ACTH isnormal. Post-stimulation cortisol concentration should be greater than 20 mcg/dL or the rate of risefrom baseline cortisol should be greater than or equal to 9 mcg/dL.Patients with sepsis or septic shock: According to a study by Padilla et al (MIGUEL 2000,283(8):1038-45), the ACTH Stimulation Test provides important prognostic information. This study defined 3 groups of patients with sepsis or septic shock: 1. Good Survival: Low basal cortisol (<or=34 mcg/dL) and high ACTH response (>9mcg/dL) 2.Intermediate Survival: Low basal cortisol (<34 mcg/dL) and low response to ACTH (<or=9 mcg/dL)OR High basal cortisol (>34 mcg/dL) or high ACTH response (>9 mcg/dL) 3. Poor Survival: High basal cortisol (>34 mcg/dL) and [...] Source.Do not run this test if systemic hydroco rtisone, methylprednisolone, prednisolone or prednisone has been administered within the past 24 hours. Draw baseline cortisol level just prior to cosyntropin administration. Administer cosyntropin 0.25 mg diluted in 2-5 mL of normal saline slow IV Push over a period of 2 minutes. Draw serum cortisol level 30 minutes after cosyntropin administration. Draw serum cortisol level 60 minutes after cosyntropin administration.[id number] 14:23:00 Test Item Value Reference Range Interpretation Comments MAGNESIUM (BEAKER) (test code = 1.8 mg/dL 1.6-2.6 627) BASIC METABOLIC [id number] 14:23:00 Test Item Value Reference Range Interpretation [...] PATIEN TS. CBC W/PLT COUNT & AUTO [id number] 14:01:00 Test Item Value Reference Range Interpretation [...] (test code = 2801) OVA AND PARASITE [id number] 12:03:00 Test Item Value Reference Range Interpretation [...] (BEAKER) (test seen seen code = 248) [id number] 05:30:00 Test Item Value Reference Range Interpretation Comments MAGNESIUM (BEAKER) (test code = 1.9 mg/dL 1.6-2.6 627) BASIC METABOLIC [id number] 05:30:00 Test Item Value Reference Range Interpretation [...] PATIEN TS. CBC W/PLT COUNT & AUTO [id number] 04:58:00 Test Item Value Reference Range Interpretation [...] PERCENT (BEAKER) (test code = 2801) TISSUE [id number] 15:51:00Surgical Pathology Report Case: [id number] Authorizing Provider: Bartolo Quinn Collected: 11/10/2018 1543 Ordering Location: [address] Received: 11/12/2018 0813 Service Pathologist: Linda Mullen MD Specimens: A) - Biopsy, Terminal Ileum, Neoterminal Ileum biopsy B) - Ileum, Ileocolonic Anastomosis biopsy C) - Large Intestine, Colon - Right/Ascending, Right colon biopsyD) - Large Intestine, Colon - Transverse, Transverse colon biopsy E) - Large Intestine, Colon - Left /Descending, Left colon biopsy A. NEOTERMINAL ILEUM, BIOPSY: - SUPERFICIAL FRAGMENTS OF ILEAL MUCOSAWITH NORMAL VILLOUS ARCHITECTURE AND NO SIGNIFICANT DIAGNOSTIC ABNORMALITY (SEE COMMENT)B. ILEOCOLONIC ANASTOMOSIS, BIOPSY: - ENTERIC MUCOSA WITH CHANGES CONSISTENT WITH ANASTOMOSIS SITE RELATED CHANGESC. COLON, RIGHT/ASCENDING, BIOPSY: - COLONIC MUCOSA WITH NO SIGNIFICANT DIAGNOSTIC ABNORMALITYD. COLON, TRANSVERSE, BIOPSY: - COLONIC MUCOSA WITH NO SIGNIFICANT DIAGNOSTIC ABNORMALITYE. COLON, LEFT/DESCENDING, BIOPSY: - COLONIC MUCOSA WITH RARE CRYPT DISTORTION Signing Pathologist Direct Phone Line: [phone] signed by Linda Mullen MD on 11/12/2018 at 3:51 PMPatient's historyof Crohn's disease is noted. The current sampling shows no significant active or chronic colitis. This may represent complete histologic resolution following treatment. Clinical and endoscopic correlation is recommended.[id number] and postop diagnosis: diarrhea A. Neoterminal ileum biopsy; B. Ileocolonic anastomosis biopsy; C. Right colon biopsy; D. Transverse colon biopsy; E. Left colon biopsyA. Received in formalin labeled with the patient's name, accession number and "biopsy, terminal ileum" are four irregular rodriguez soft tissue fragments ranging 0.2-0.4 cm which are submitted in toto in A1. B. Received in formalin labeled with the patient's name, accession number and "ileum" are multiple rodriguez-softtissue fragments ranging 0.1-0.2 cm which are submitted in toto in B1. C. Received in formalin labeled with the patient's name, accession number and "large intestine, colon - right ascending" are four i rregular rodriguez soft tissue fragment ranging 0.2-0.3 cm which are submitted in toto in C1. D. Received in formalin labeled with the patient's name, accession number and "large intestine, colon - transverse" are four irregular rodriguez soft tissue fragments ranging 0.2-0.3 cm which are submitted in toto in D1.E. .Received in formalin labeled with the patient's name, accession number and "large intestine, colon - left/descending" are four irregular rodriguez soft tissue fragments ranging 0.2-0.6 cm which are submitted in toto in E1. CG/pl Performed. STOOL CULTURE + SHIGA [id number] 08:26:00 Test Item Value Reference Range Interpretation Comments CULTURE (BEAKER) No Salmonella, Shigella (test code = 1095) or Campylobacter isolated GI PATHOGEN PROFILE BY [id number] 08:20:00 Test Item Value Reference Range Interpretation [...] detected LT/ST BY PCR (test code = 6849742) SHIGA-LIKE TOXIN-PRODUCING E. Not detected Not detected COLI (STEC) STX1/STX2 (test code = 6656979) E. COLI O157 (PCR) (test code = Not detected 20151206) SHIGELLA/ENTEROINVASIVE E. COLI Not detected Not detected (EIEC) BY PCR (test code = 6493520) CRYPTOSPORIDIUM (PCR) (test code Not detected Not detected = 20151208) CYCLOSPORA CAYETANENSIS (PCR) Not detected Not detected (test code = 9097138) ENTAMOEBA HISTOLYTICA (PCR) Not detected Not detected [...] Not detected Not detected (test code = 1125864) VIBRIO (PARAHAEMOLYTICUS, Not detected Not detected VULNIFICUS) (test code = 4177633) Other viruses, parasites and bacteria not targeted by this PCR panel cannot be excluded; therefore clinical correlation and follow up of serology, culture results, and other molecular studies is required. The results are not intended to be used as the sole means for clinical diagnosis or patient management decisions. This sample was tested at the [facility] using the [place] [employer] Gastrointestinal Panel. It is FDA cleared and has been verified and approved by the [facility] for clinical use. This laboratory is CLIA-certified and College ofAmerican Pathologists (CAP)-accredited to perform high complexity testing.CORTISOL 2018-11-09 06:24:00 Test Item Value Reference Range Interpretation Comments CORTISOL, TOTAL (BEAKER) (test code = < ug/dL 3.7-19.4 L 2755) BASIC METABOLIC [id number] 05:50:00 Test Item Value Reference Range Interpretation [...] APPLICABLE FOR DIALYSIS PATIEN TS. SHIGA TOXIN [id number] 14:16:00 Test Item Value Reference Range Interpretation Comments SHIGA TOXIN 1 (BEAKER) (test Not detected Not detected code = 2177) SHIGA TOXIN 2 (BEAKER) (test Not detected Not detected code = 2179) STOOL PATH [id number] 10:08:00 Test Item Value Reference Range Interpretation Comments PATHOGEN EXAM CHARGED (BEAKER) (test Done code = 2381) TSH/FREE T4 IF [id number] 05:59:00 Test Item Value Reference Range Interpretation Comments THYROID STIMULATING HORMONE 2.84 uIU/mL 0.35-4.94 (BEAKER) (test code = 772) BASIC METABOLIC [id number] 05:38:00 Test Item Value Reference Range Interpretation [...] DIALYSIS PATIEN TS. RAD, ABDOMEN/KUB, 1 VIEW [id number] 14:37:00Reason for exam:->post-obstructive diarrheaShould this be performed [...] in the right upper quadrant abdomen from priorcholecystectomy. Phleboliths are seen in the pelvis. Impression: No mechanical obstruction or ileus.Signed: Kehinde Zaman MDReport Verified Date/Time: 11/07/2018 14:37:57 Reading Location: [address] Consult Reading Room CT, [id number] 14:25:00FINAL REPORT TECHNIQUE: CT of the abdomen [...] focal hepatic lesions. Prior cholecystectomy. No biliary ductaldilatation.SPLEEN: No splenomegaly.PANCREAS: No focal masses or ductal dilatation. ADRENALS: No adrenal nodules.KIDNEYS/URETERS: No hydronephrosis or stones. Unchanged 1 cm bilateral renal cysts. Unchanged 3.3 x 3.5 cm hypodensity in the left upper pole with density greater than simple fluid and a thin subcentimeter mural calcification.PELVIC ORGANS/BLADDER: Prior hysterectomy. No adnexal mass. The bladder is unremarkable. PERITONEUM/RETROPERITONEUM: Increased ill-defined inflammatory change in the r ight abdomen adjacent to the ileocolic anastomosis contains [...] the soft tissues of the left abdominal wallwith an intact epidural lead which terminates at the level of the lower thoracic spine. IMPRESSION:Increased ill- defined inflammatory change adjacent to the ileocolic anastomosis which contains a tiny focus of air may represent phlegmonous change. Bowel leak is unlikely. No discrete fluid collections.Unchanged 3.5 cm hypodensity in the upper left kidney, likely a debris-containing cyst. Abdomen CT with and without intravenous contrast (renal mass protocol) may be obtained for definitive characterization. Signed: Cj Lowery MDReport Verified Date/Time: 11/07/2018 14:25:25 Reading Location: [address] Body Reading Room [facility] W/PLT COUNT & AUTO [id number] 13:14:00 Test Item Value Reference Range Interpretation [...] comment: User comments: Slide comments:C. DIFFICILE GDH [id number] 12:53:00 Test Item Value Reference Range Interpretation Comments CDT TOXIN (test code Negative Negative = 1417989100) CDT GDH ANTIGEN (test Negative Negative No ind ication of code = 2610715964) Clostridi um difficile infection and n o colonization. Discontinue ent leon isolation and t herapy. Testing performed by [employer] Rapid Cassette Assay. For GDH, published sensitivity of the assay is 98.7% compared to cytotoxicity testing. For Toxin AB, published sensitivity is 87.8% and specificity 99.4% compared to cytotoxicity testing.Verification of kit performance was done by the [facility] prior to clinical use.C-REACTIVE [id number] 06:53:00 Test Item Value Reference Range Interpretation Comments C-REACTIVE PROTEIN (BEAKER) (test 0.37 mg/dL 0.00-0.50 code = 676) BASIC METABOLIC [id number] 06:41:00 Test Item Value Reference Range Interpretation [...] NOT APPLICABLE FOR DIALYSIS PATIEN TS. Laboratory [id number] 05:30:00 Test Item Value Reference Range Interpretation Comments Sodium Level (test code = Sodium Level) 142 136-145 [facility] [id number] 05:30:00 Test Item Value Reference Range Interpretation Comments Potassium Level (test code = Potassium 3.6 3.5-5.1 Level) [facility] [id number] 05:30:00 Test Item Value Reference Range Interpretation Comments Magnesium Level (test code = Magnesium 1.9 1.8-2.4 Level) [facility] [id number] 05:30:00 Test Item Value Reference Range Interpretation Comments Glucose Level (test code = Glucose 160 74-106 Level) [facility]2019-06-18 05:30:00 Test Item Value Reference Range Interpretation Comments Estimat Glomerular 85 See_Comment [Automat ed message] The Filtration Rate (test system which generated code = Estimat this result t ransmitted Glomerular Filtration refere nce range: >=90. Rate) The reference r markus was not used to int erpret this result as normal/abnormal . [facility]2019-06-18 05:30:00 Test Item Value Reference Range Interpretation Comments Creatinine (test code = Creatinine) 0.73 0.55-1.3 [facility]2019-06-18 05:30:00 Test Item Value Reference Range Interpretation Comments Chloride Level (test code = Chloride 108 98-107 Level) [facility]2019-06-18 05:30:00 Test Item Value Reference Range Interpretation Comments Carbon Dioxide Level (test code = 26 21-32 Carbon Dioxide Level) [facility]2019-06-18 05:30:00 Test Item Value Reference Range Interpretation Comments Calcium Level (test code = Calcium 8.4 8.5-10.1 Level) [facility]2019-06-18 05:30:00 Test Item Value Reference Range Interpretation Comments Blood Urea Nitrogen (test code = Blood 8 7-18 Urea Nitrogen) [facility]2019-06-18 05:30:00 Test Item Value Reference Range Interpretation Comments White Blood Count (test code = White 3.6 4.3-10.9 Blood Count) [facility]2019-06-18 05:30:00 Test Item Value Reference Range Interpretation Comments Red Cell Distribution Width (test code 15.0 12.1-15.2 = Red Cell Distribution Width) [facility]2019-06-18 05:30:00 Test Item Value Reference Range Interpretation Comments Red Blood Count (test code = Red Blood 4.27 3.86-4.86 Count) [facility]2019-06-18 05:30:00 Test Item Value Reference Range Interpretation Comments Platelet Count (test code = Platelet 291 152-406 Count) [facility]2019-06-18 05:30:00 Test Item Value Reference Range Interpretation Comments Neutrophils % (test code = Neutrophils 78.0 41.7-73.7 %) [facility]2019-06-18 05:30:00 Test Item Value Reference Range Interpretation Comments Monocytes % (test code = Monocytes %) 1.0 3.3-12.3 [facility]2019-06-18 05:30:00 Test Item Value Reference Range Interpretation Comments Mean Platelet Volume (test code = Mean 7.1 7.6-11.3 Platelet Volume) [facility]2019-06-18 05:30:00 Test Item Value Reference Range Interpretation Comments Mean Corpuscular Volume (test code = 91.9 80-100 Mean Corpuscular Volume) [facility]2019-06-18 05:30:00 Test Item Value Reference Range Interpretation Comments Mean Corpuscular Hemoglobin Concent 33.4 32.0-36.0 (test code = Mean Corpuscular Hemoglobin Concent) [facility]2019-06-18 05:30:00 Test Item Value Reference Range Interpretation Comments Mean Corpuscular Hemoglobin (test 30.7 pg 27.0-35.0 code = Mean Corpuscular Hemoglobin) [facility]2019-06-18 05:30:00 Test Item Value Reference Range Interpretation Comments Lymphocytes % (test code = Lymphocytes 20.7 15.3-44.8 %) [facility]2019-06-18 05:30:00 Test Item Value Reference Range Interpretation Comments Hemoglobin (test code = Hemoglobin) 13.1 12.0-15.0 [facility]2019-06-18 05:30:00 Test Item Value Reference Range Interpretation Comments Hematocrit (test code = Hematocrit) 39.2 36.0-45.0 [facility]2019-06-18 05:30:00 Test Item Value Reference Range Interpretation Comments Eosinophils % (test code 0.0 See_Comment [A utomated message] The = Eosinophils %) system ic h generated this result tra nsmitted reference range : <=4.4. The reference r markus was not used to int erpret this result as normal/abnormal . [facility]2019-06-18 05:30:00 Test Item Value Reference Range Interpretation Comments Basophils % (test code 0.3 See_Comment [Aut omated message] The = Basophils %) system which generated this result tra nsmitted reference range : <=1.3. The reference r markus was not used to int erpret this result as normal/abnormal . [facility]2019-06-18 05:30:00 Test Item Value Reference Range Interpretation Comments Absolute Neutrophil (test code = 2.8 1.8-8.0 Absolute Neutrophil) [facility]2019-06-18 05:30:00 Test Item Value Reference Range Interpretation Comments Absolute Monocytes (CBC) (test code = 0.0 0.1-1.3 Absolute Monocytes (CBC)) [facility]2019-06-18 05:30:00 Test Item Value Reference Range Interpretation Comments Absolute Lymphocytes (CBC) (test code = 0.7 0.7-4.9 Absolute Lymphocytes (CBC)) [facility]2019-06-18 05:30:00 Test Item Value Reference Range Interpretation Comments Absolute Eosinophils 0.0 See_Comment [Autom ated message] The (CBC) (test code = system wh ich generated Absolute Eosinophils this re sult transmitted (CBC)) reference range : <=0.5. The reference r markus was not used to int erpret this result as normal/abnormal . [facility]2019-06-18 05:30:00 Test Item Value Reference Range Interpretation Comments Absolute Basophils 0.0 See_Comment [Automat ed message] The (CBC) (test code = system [employer] ich generated Absolute Basophils this resu lt transmitted (CBC)) reference range : <=0.5. The reference r markus was not used to int erpret this result as normal/abnormal . [facility]2019-06-17 19:15:00 Test Item Value Reference Range Interpretation Comments Urine pH (test code = Urine pH) 7.0 1 [facility]2019-06-17 19:15:00 Test Item Value Reference Range Interpretation Comments Urine Total Protein (test Urine Total Protein code = Urine Total Protein) [facility]2019-06-17 19:15:00 Test Item Value Reference Range Interpretation Comments Urine Specific [place] (test code = 1.010 1 Urine Specific [place]) [facility] [id number] 19:15:00 Test Item Value Reference Range Interpretation Comments Urine Nitrite (test code = Urine Nitrite Urine Nitrite) [facility] [id number] 19:15:00 Test Item Value Reference Range Interpretation Comments Urine Leukocyte Urine Leukocyte Esterase (test code = Esterase Urine Leukocyte Esterase) [facility] [id number] 19:15:00 Test Item Value Reference Range Interpretation Comments Urine Ketones (test code = Urine Ketones Urine Ketones) [facility] [id number] 19:15:00 Test Item Value Reference Range Interpretation Comments Urine Glucose (test code = Urine Glucose Urine Glucose) [facility] [id number] 19:15:00 Test Item Value Reference Range Interpretation Comments Urine Blood (test code = Urine Urine Blood Blood) [facility] [id number] 19:05:00 Test Item Value Reference Range Interpretation Comments Urine WBC (test code = Urine WBC) no gt [facility] [id number] 19:05:00 Test Item Value Reference Range Interpretation Comments Urine Squamous Epithelial Cells (test no gt code = Urine Squamous Epithelial Cells) [facility] [id number] 19:05:00 Test Item Value Reference Range Interpretation Comments Urine RBC (test code = Urine RBC) Urine RBC [facility] [id number] 19:05:00 Test Item Value Reference Range Interpretation Comments Urine Culture Reflexed Urine Culture Reflexed (test code = Urine Culture Reflexed) [facility]2019-06-17 19:05:00 Test Item Value Reference Range Interpretation Comments Urine Bacteria (test code = Urine Bacteria Urine Bacteria) [facility] [id number] 16:40:00 Test Item Value Reference Range Interpretation Comments Total Bilirubin (test code = Total 0.3 0.2-1.0 Bilirubin) [facility] [id number] 16:40:00 Test Item Value Reference Range Interpretation Comments Serum Total Protein (test code = Serum 7.2 6.4-8.2 Total Protein) [facility] [id number] 16:40:00 Test Item Value Reference Range Interpretation Comments Lipase (test code = Lipase) 96 73-393 [facility] [id number] 16:40:00 Test Item Value Reference Range Interpretation Comments Globulin (test code = Globulin) 3.9 2.3-3.5 [facility]2019-06-17 16:40:00 Test Item Value Reference Range Interpretation Comments Direct Bilirubin (test 0.1 See_Comment [Aut omated message] The code = Direct system which g enerated Bilirubin) this result tra nsmitted reference range : <=0.2. The reference r markus was not used to int erpret this result as normal/abnormal . [facility]2019-06-17 16:40:00 Test Item Value Reference Range Interpretation Comments Aspartate Amino Transf (AST/SGOT) (test 19 15-37 code = Aspartate Amino Transf (AST/SGOT)) [facility]2019-06-17 16:40:00 Test Item Value Reference Range Interpretation Comments Alkaline Phosphatase (test code = 102 45-117 Alkaline Phosphatase) [facility]2019-06-17 16:40:00 Test Item Value Reference Range Interpretation Comments Albumin/Globulin Ratio (test code = 0.8 1 1.1-1.8 Albumin/Globulin Ratio) [facility]2019-06-17 16:40:00 Test Item Value Reference Range Interpretation Comments Albumin (test code = Albumin) 3.3 3.4-5.0 [facility]2019-06-17 16:40:00 Test Item Value Reference Range Interpretation Comments Alanine Aminotransferase (ALT/SGPT) 16 -78 (test code = Alanine Aminotransferase (ALT/SGPT)) [facility], [id number] 09:48:00FINAL REPORT CT Abdomen And Pelvis with [...] exposure control, adjustment of the mAs and/or kVpaccording to patient size, standardized low-dose protocol, and/or [...] well-healed. No evidence of hernia. IMPRESSION: 1. Smallamount of peritoneal inflammation in the right hemiabdomen secondary to recent surgery. The bowel demonstrates no evidence of dilatation or mural hyperemia. No fluid collection. 2. No evidence of incisional hernia. 3. Stable renal cysts. Annual surveillance of the left upper pole cyst with CT is recommended to confirm stability. Signed: Yany Henriquez MDRbamort Verified Date/Time: 09/20/2018 09:48:51 RAD, BONE DENSITY STUDY 2018-09-04 13:22:00Reason for Exam:->crohn's disease of both small and large intestine with other complication; intestinal malabsorption,unspecified type, heavy smoker,history of steroid therapy,encounter for imaging to assess osteopeniaFINAL REPORT Exam: Bone mineral density study. History: Osteopenia. Comparison:None Discussion: Evaluation of the left hip, [...] for bone mineral density as provided by information director is 0.023 g/cm2 for lumbar spine and [...] bone mineral density study. Signed: Art Bermeo MDRbamort Verified Date/Time: 09/04/2018 13:22:29 [id number] 07:02:00 Test Item Value Reference Range Interpretation Comments PHOSPHORUS (BEAKER) (test code = 2.9 mg/dL 2.3-4.7 604) [id number] 07:02:00 Test Item Value Reference Range Interpretation Comments MAGNESIUM (BEAKER) (test code = 1.9 mg/dL 1.6-2.6 627) BASIC METABOLIC [id number] 07:02:00 Test Item Value Reference Range Interpretation [...] 0-0 (BEAKER) (test code = 413) TISSUE [id number] 13:47:00Surgical Pathology Report Case: [id number] Authorizing Provider: Jani Alejandro MD Collected: 08/20/2018 1003 Ordering Location: [facility] PERIOPERATIVE Received: 08/20/2018 1118 SERVICES Pathologist: Linda Mullen MD Specimen: Large Intestine, Colon - Right/Ascending, RIGHT COLON AND SMALL BOWEL A.COLON, RIGHT/ASCENDING, RIGHT HEMICOLECTOMY: - CHRONIC ACTIVE ENTERITIS COMPATIBLE WITH CROHN'S DISEASE (SEE COMMENT) - NEGATIVE FOR GRANULOMAS (OR) VIRAL CYTOPATHIC CHANGES - NEGATIVE FOR DYSPLASIA (OR) MALIGNANCY - MARGINS, UNREMARKABLE Signing Pathologist Direct Phone Line: [phone] signed by Linda Mullen MD on 08/22/2018 at 1:47 PMPer Epic, patient's history of Crohn's disease s/p ileocecal anastomosis (2006) and recent admission with Crohn's flare treatment with IV steroids with persistent symptoms is noted.Histologic features are compatible with chronic inflammatory bowel disease. Features including small bowel involvement, areas of submucosal fibrosis (stricture), fat stranding, and transmural lymphoid aggregate underneath non-ulcerated areas are in favor of Crohn's disease. No granulomas (or) viral cytopathic changes are seen.IDC: Dr. Leslie Carballo concurs.90629Fioen's disease of small intestine without complication Right colon and small bowel A. Received fresh labeled "large intestine, colon- right/ascending" is a 39 cm in length and [...] folding and no masses or lesions identified. Shoer sections are submitted in 10 [place] settes as follows.Ink code: Blue-one marginBlack-margin closest to anastomotic siteSection code: A1 - denial management representative sections of both margins, differentially inked per the ink code A2-A5 - entire sections of ulcerative areaA6 - entire sections of hemorrhagic mucosal areaA7-A10 - denial management representative sections of mucosaFR/ewPerformed.[id number] 06:10:00 Test Item Value Reference Range Interpretation Comments PHOSPHORUS (BEAKER) (test code = 2.3 mg/dL 2.3-4.7 604) [id number] 06:10:00 Test Item Value Reference Range Interpretation Comments MAGNESIUM (BEAKER) (test code = 1.7 mg/dL 1.6-2.6 627) BASIC METABOLIC [id number] 06:10:00 Test Item Value Reference Range Interpretation [...] WBC 0-0 (BEAKER) (test code = 413) [id number] 03:34:00 Test Item Value Reference Range Interpretation Comments PHOSPHORUS (BEAKER) (test code = 2.5 mg/dL 2.3-4.7 604) [id number] 03:34:00 Test Item Value Reference Range Interpretation Comments MAGNESIUM (BEAKER) (test code = 1.9 mg/dL 1.6-2.6 627) BASIC METABOLIC [id number] 03:34:00 Test Item Value Reference Range Interpretation [...] 0-0 (BEAKER) (test code = 413) POCT-GLUCOSE [id number] 11:42:00 Test Item Value Reference Range Interpretation Comments POC-GLUCOSE METER 129 mg/dL 70-110 H TESTED AT [facility] 6720 (BEAKER) (test code = [place] 1538) [address] POCT-GLUCOSE [id number] 06:28:00 Test Item Value Reference Range Interpretation Comments POC-GLUCOSE METER 102 mg/dL 70-110 TESTED AT [facility] 67[address] (JESS) (test code = [place] 1538) [address] CT, [id number] 15:41:00FINAL REPORT CT abdomen and pelvis with contrast History: Crohn's disease Comparison: 07/21/2018 Technique: serial axial imaging was performed following up to 100cc of non ionic iodinated intravenous contrast as per departmental protocol. Multiplanar images are reconstructed and reviewed when indicated. This CT examination is performed using one or more of the following dose reduction techniques: Automated exposure control, adjustment of the mA and /or kV according to patient size, and/or use of iterative reconstruction technique. Findings:Unremarkable appearance of pancreas andspleen. Unremarkable appearance of the liver. Previous cholecystectomy. [...] findings of active inflammatory bowel disease on thisexamination.2. Previous cholecystectomy and hysterectomy. Signed: Dinesh Topeteort Verified D ate/Time: 08/17/2018 15:41:17 Reading Location: [facility] Diagnostic Imaging Reading Room - [place] [address] STOOL CULTURE + SHIGA [id number] 15:37:00 Test Item Value Reference Range Interpretation Comments CULTURE (JESS) No Salmonella, Shigella (test code = 1095) or Campylobacter isolated POCT-GLUCOSE [id number] 08:25:00 Test Item Value Reference Range Interpretation Comments POC-GLUCOSE METER 197 mg/dL 70-110 H TESTED AT [facility] 6720 (BEAKER) (test code = [place] 1538) [address] [id number] 05:59:00 Test Item Value Reference Range Interpretation Comments PHOSPHORUS (BEAKER) (test code = 3.6 mg/dL 2.3-4.7 604) [id number] 05:59:00 Test Item Value Reference Range Interpretation Comments MAGNESIUM (BEAKER) (test code = 2.3 mg/dL 1.6-2.6 627) BASIC METABOLIC [id number] 05:59:00 Test Item Value Reference Range Interpretation [...] APPLICABLE FOR DIALYSIS PATIEN TS. HEPATIC FUNCTION [id number] 05:59:00 Test Item Value Reference Range Interpretation [...] = 23 U/L 5-34 353) ALT (SGPT) ([facility]) (test code = 41 U/L 6-55 347) POCT-GLUCOSE [id number] 21:05:00 Test Item Value Reference Range Interpretation Comments POC-GLUCOSE METER 148 mg/dL 70-110 H TESTED AT [place] [address] ([facility]) (test code = [place] 1538) [address] C. DIFFICILE GDH [id number] 15:59:00 Test Item Value Reference Range Interpretation Comments CDT TOXIN (test code Negative Negative = 7119400347) CDT GDH ANTIGEN (test Negative Negative No ind ication of code = 4816591791) Clostridi um difficile infection and n o colonization. Discontinue ent leon isolation and t herapy. Testing performed by [employer] Rapid Cassette Assay. For GDH, published sensitivity of the assay is 98.7% compared to cytotoxicity testing. For Toxin AB, published sensitivity is 87.8% and specificity 99.4% compared to cytotoxicity testing.Verification of kit performance was done by the [facility] prior to clinical use.SHIGA TOXIN [id number] 14:22:00 Test Item Value Reference Range Interpretation Comments SHIGA TOXIN 1 ([facility]) (test Not detected Not detected code = 2177) SHIGA TOXIN 2 ([facility]) (test Not detected Not detected code = 2179) POCT-GLUCOSE [id number] 13:13:00 Test Item Value Reference Range Interpretation Comments POC-GLUCOSE METER 119 mg/dL 70-110 H TESTED AT [place] [address] ([facility]) (test code = RYNE [place] [employer] [place] 1538) [address] STOOL PATH [id number] 10:03:00 Test Item Value Reference Range Interpretation Comments PATHOGEN EXAM CHARGED ([facility]) (test Done code = 2381) POCT-GLUCOSE [id number] 09:13:00 Test Item Value Reference Range Interpretation Comments POC-GLUCOSE METER 111 mg/dL 70-110 H TESTED AT [place] [address] ([facility]) (test code = RYNE [place] [employer] [place] 1538) [address] [id number] 06:09:00 Test Item Value Reference Range Interpretation Comments PREALBUMIN ([facility]) (test code = 36 mg/dL 14-45 586) CBC W/PLT COUNT & AUTO [id number] 06:02:00 Test Item Value Reference Range Interpretation [...] 0-1 PERCENT (BEAKER) (test code = 2801) [id number] 05:52:00 Test Item Value Reference Range Interpretation Comments PHOSPHORUS (BEAKER) (test code = 4.0 mg/dL 2.3-4.7 604) [id number] 05:52:00 Test Item Value Reference Range Interpretation Comments MAGNESIUM (BEAKER) (test code = 2.3 mg/dL 1.6-2.6 627) BASIC METABOLIC [id number] 05:52:00 Test Item Value Reference Range Interpretation [...] APPLICABLE FOR DIALYSIS PATIEN TS. HEPATIC FUNCTION [id number] 05:52:00 Test Item Value Reference Range Interpretation [...] code = 29 U/L 6-55 347) C-REACTIVE [id number] 05:52:00 Test Item Value Reference Range Interpretation Comments C-REACTIVE PROTEIN (JESS) (test 0.22 mg/dL 0.00-0.50 code = 676) POCT-GLUCOSE [id number] 23:39:00 Test Item Value Reference Range Interpretation Comments POC-GLUCOSE METER 122 mg/dL 70-110 H TESTED AT [facility] 6720 (JESS) (test code = [place] 1538) [address] CT, [id number] 04:05:00FINAL REPORT CLINICAL HISTORY: Acute abdominal pain, [...] Adrenal Glands: No significant findings. Kidneys and ure ters: 3 cm superior pole cyst on the left kidney 1.3 cm superior pole cyst on the right kidney. Stomach and Duodenum: No significant findings. Pancreas: No significant findings. Bowel: There is a shortsegment of dilated, fluid-filled small bowel in the right lower quadrant. The appearance is similar to recent CT enterography performed 07/08/2018. Adjacent narrowed small bowel loops in the right lowerquadrant where previously distended with fluid; this appearance probably relates to peristaltic contraction rather than stricture. The small bowel is otherwise unremarkable without definite evidence ofobstruction. There is no pneumatosis intestinalis. The patient has undergone previous ileocolectomy.The colon appears grossly unremarkable. The previously seen colonic wall thickening is no longer evident. There is stool throughout normal caliber large intestine to the junction of the sigmoid colon and rectum. There is a small amount of free fluid in the right lower quadrant, similar to previous. Nofree intraperitoneal air. Bladder: No significant findings. Major vascular structures: No significant findings. Reproductive organs: Previous hysterectomy Skeleton: Redemonstrated subtle vertebral bodycompression deformity at L2. Spinal degenerative changes are present. An intrathecal medication pump overlies the right lower quadrant. IMPRESSION: By report, IV access for IV contrast ministration wasnot obtained. Lack of IV contrast limits the evaluation. There is a short segment of prominent caliber small bowel in the right lower quadrant, however, this appearance is similar to previous. Relativel y decompressed distal ileal loops are new from [...] Signed: Denis Sow MDReport Verified Date/Time: 07/21/2018 04:05:05Reading Location: [address] Reading Room [id number] 22:00:00 Test Item Value Reference Range Interpretation Comments LIPASE (BEAKER) (test code = 749) 12 U/L 8-78 COMPREHENSIVE METABOLIC [id number] 22:00:00 Test Item Value Reference Range Interpretation [...] GFR I S NOT APPLICABLE FOR DIALYSIS PATIANDRIY MURRELL [id number] 21:55:00 Test Item Value Reference Range Interpretation Comments PARTIAL THROMBOPLASTIN TIME 24.6 seconds 22.5-36.0 (BEAKER) (test code = 760) PROTHROMBIN [id number] 21:53:00 Test Item Value Reference Range Interpretation Comments PROTIME (BEAKER) (test code = 13.2 seconds 11.7-14.7 759) INR (BEAKER) (test code = 370) 1.0 <=5.9 RECOMMENDED COUMADIN/WARFARIN INR THERAPY RANGESSTANDARD DOSE: 2.0 - 3.0 Includes: PROPHYLAXIS for venous thrombosis, systemic embolization; TREATMENT for venous thrombosis and/or pulmonary embolus.HIGH RISK: Target INR is 2.5-3.5 for patients with mechanical heart valves.CBC W/PLT COUNT & AUTO [id number] 21:44:00 Test Item Value Reference Range Interpretation [...] PERCENT (BEAKER) (test code = 2801) Laboratory [id number] 20:37:00 Test Item Value Reference Range Interpretation Comments Urine Test Urine Test (test code = Urine Test) [facility] [id number] 09:23:00Surgical Pathology Report Case: [id number] Authorizing Provider: King Huynh MD Collected: 07/11/2018 0924 Ordering Location: [address] Received: 07/11/2018 1421 Service Pathologist: Linda Mullen MD Specimens: A) - Large Intestine, Colon - Right/Ascending, random biopsiesB) - Large Intestine, Colon - Transverse, random [...] SIGNIFICANT DIAGNOSTIC ABNORMALITY (SEE MICROSCOPIC DESCRIPTION AND COMMENT)D.COLON, SIGMOID, RANDOM, BIOPSY: - COLONIC MUCOSA WITH NO SIGNIFICANT DIAGNOSTIC ABNORMALITY (SEE MICROSCOPIC DESCRIPTION AND COMMENT) Signing Pathologist Direct Phone Line: [phone] signed by Linda Mullen MD on 07/12/2018 at 9:23 AMPatient's history of Crohn's disease is noted per Epic note dated 07/10/18. The current sampling shows no significant active or chronic colitis. This may represent complete histologic resolution following treatment. Clinical and endoscopic correlation is recommended.[id number] abdominal pain A. Random colon biopsy. B. [...] consists of three fragments of rodriguez tissue rangingfrom 0.1 to 0.3 cm, submitted entirely in [...] noted. No dysplasia or carcinoma is present.BLOOD [id number] 20:01:00 Test Item Value Reference Range Interpretation Comments CULTURE (BEAKER) (test No growth in 5 days code = 1095) BLOOD [id number] 20:01:00 Test Item Value Reference Range Interpretation Comments CULTURE (BEAKER) (test No growth in 5 days code = 1095) BASIC METABOLIC [id number] 04:55:00 Test Item Value Reference Range Interpretation [...] PATIEN TS. CBC W/PLT COUNT & AUTO [id number] 04:37:00 Test Item Value Reference Range Interpretation [...] (BEAKER) (test code = 2801) BASIC METABOLIC [id number] 06:15:00 Test Item Value Reference Range Interpretation [...] PATIEN TS. CBC W/PLT COUNT & AUTO [id number] 06:06:00 Test Item Value Reference Range Interpretation [...] code = 2801) STOOL CULTURE + SHIGA [id number] 12:15:00 Test Item Value Reference Range Interpretation Comments CULTURE (BEAKER) No Salmonella, Shigella (test code = 1095) or Campylobacter isolated BASIC METABOLIC [id number] 07:08:00 Test Item Value Reference Range Interpretation [...] PATIEN TS. CBC W/PLT COUNT & AUTO [id number] 06:42:00 Test Item Value Reference Range Interpretation [...] code = 2801) CT, ABDOMEN - PELVIS, [id number] 14:17:00Reason for exam:- >Evaluation of small bowel [...] of the extrahepatic bile duct. The distal commonbile duct tapers smoothly at the ampulla so [...] MDReport Verified Date/Time: 07/08/2018 14:17:31 Reading Location: [facility] C013X [facility] Consult Reading Room [facility] METABOLIC PANEL 2018-07-08 06:53:00 Test Item Value Reference Range Interpretation [...] PATIEN TS. CBC W/PLT COUNT & AUTO [id number] 06:25:00 Test Item Value Reference Range Interpretation [...] (BEAKER) (test code = 2801) SHIGA TOXIN [id number] 13:53:00 Test Item Value Reference Range Interpretation Comments SHIGA TOXIN 1 (BEAKER) (test Not detected Not detected code = 2177) SHIGA TOXIN 2 (BEAKER) (test Not detected Not detected code = 2179) C. DIFFICILE GDH [id number] 13:28:00 Test Item Value Reference Range Interpretation Comments CDT TOXIN (test code Negative Negative = [id number]) CDT GDH ANTIGEN (test Negative Negative No ind ication of code = 3595105880) Clostridi um difficile infection and n o colonization. Discontinue ent leon isolation and t herapy. Testing performed by [employer] Rapid Cassette Assay. For GDH, published sensitivity of the assay is 98.7% compared to cytotoxicity testing. For Toxin AB, published sensitivity is 87.8% and specificity 99.4% compared to cytotoxicity testing.Verification of kit performance was done by the [facility] prior to clinical use.STOOL PATH [id number] 10:17:00 Test Item Value Reference Range Interpretation Comments PATHOGEN EXAM CHARGED (BEAKER) (test Done code = 2381) BASIC METABOLIC [id number] 05:17:00 Test Item Value Reference Range Interpretation [...] PATIEN TS. CBC W/PLT COUNT & AUTO [id number] 04:58:00 Test Item Value Reference Range Interpretation [...] = 2801) RAD, CHEST, 1 VIEW, NON [id number] 14:21:00Reason for exam:->FeverShould this be performed at the bedside?->YesFINAL REPORT TECHNIQUE: Frontal chest radiograph dated 07/06/2018. CLINICAL HISTORY: Fever COMPARISON STUDY: None IMPRESSION:Lungs are clear. No pleural effusion or pneumothorax. Cardiomediastinal silhouette is normal in size. No pulmonary edema. No fracture. Signed: Mazin Mckinney. MDReport Verified Date/Time: 07/06/2018 14:21:04 Reading Location: [facility] Radiology Reading Room RAPID DRUG SCREEN, [id number] 12:52:00 Test Item Value Reference Range Interpretation [...] situations. Chain of custody not maintained. Some dbpk-ekv-yrejwpt medications, as well as adulterants, may cause inaccurate results. Clinical correlation should be applied. A more comprehensive drug screen or confirmation of a detected drug may be performed upon request.CBC W/PLT COUNT & AUTO [id number] 12:40:00 Test Item Value Reference Range Interpretation [...] 0-1 PERCENT (BEAKER) (test code = 2801) [id number] 12:12:00 Test Item Value Reference Range Interpretation Comments PHOSPHORUS (BEAKER) (test code = 3.0 mg/dL 2.3-4.7 604) [id number] 12:12:00 Test Item Value Reference Range Interpretation Comments MAGNESIUM (BEAKER) (test code = 2.1 mg/dL 1.6-2.6 627) BASIC METABOLIC [id number] 12:12:00 Test Item Value Reference Range Interpretation [...] APPLICABLE FOR DIALYSIS PATIEN TS. HEPATIC FUNCTION [id number] 12:12:00 Test Item Value Reference Range Interpretation [...] U/L 6-55 347) LACTIC ACID, VENOUS, WHOLE [id number] 12:08:00 Test Item Value Reference Range Interpretation Comments LACTATE BLOOD VENOUS 0.8 mmol/L 0.5-2.2 Specime n moderately (2) (BEAKER) (test hemolyzed code = 2872) URINALYSIS W/ REFLEX URINE [id number] 11:10:00 Test Item Value Reference Range Interpretation [...] 516) SOURCE(BEAKER) (test code = 2795) CHEM [id number] 21:40:00 Test Item Value Reference Range Interpretation Comments eGFR (test code = eGFR) [id number] 21:40:00 Test Item Value Reference Range Interpretation Comments Potassium Lvl (test code = Potassium 3.2 3.5-5.1 Lvl) [facility] [id number] 21:40:00 Test Item Value Reference Range Interpretation Comments Sodium Lvl (test code = Sodium Lvl) 145 135-145 [facility] [id number] 21:40:00 Test Item Value Reference Range Interpretation Comments Creatinine Lvl (test code = Creatinine 0.73 0.50-1.40 Lvl) [facility] [id number] 21:40:00 Test Item Value Reference Range Interpretation Comments Chloride Lvl (test code = Chloride Lvl) 108 95-109 [facility] [id number] 21:40:00 Test Item Value Reference Range Interpretation Comments BUN (test code = BUN) 11 7-22 [facility] [id number] 21:40:00 Test Item Value Reference Range Interpretation Comments Albumin Lvl (test code = Albumin Lvl) 4.0 3.5-5.0 [facility] [id number] 21:40:00 Test Item Value Reference Range Interpretation Comments Total Protein (test code = Total 7.2 6.4-8.4 Protein) [facility] [id number] 21:40:00 Test Item Value Reference Range Interpretation Comments Calcium Lvl (test code = Calcium Lvl) 8.2 8.5-10.5 [facility] [id number] 21:40:00 Test Item Value Reference Range Interpretation Comments ALT (test code = ALT) 21 See_Comment [Auto mated message] The system which ge nerated this result transmit francine reference range : <=65. The reference range was not used to interpr et this result as angel l/abnormal. [facility]2017-10-21 21:40:00 Test Item Value Reference Range Interpretation Comments CO2 (test code = CO2) 28 24-32 [facility]2017-10-21 21:40:00 Test Item Value Reference Range Interpretation Comments Bili Total (test code = Bili Total) 0.5 0.2-1.3 [facility]2017-10-21 21:40:00 Test Item Value Reference Range Interpretation Comments Alk Phos (test code = Alk Phos) 54 39-136 [facility]2017-10-21 21:40:00 Test Item Value Reference Range Interpretation Comments AST (test code = AST) 12 See_Comment [Auto mated message] The system which ge nerated this result transmit francine reference range : <=37. The reference range was not used to interpr et this result as angel l/abnormal. [facility]2017-10-21 21:40:00 Test Item Value Reference Range Interpretation Comments Glucose Lvl (test code = Glucose Lvl) 98 70-99 [facility]2017-10-21 21:40:00 Test Item Value Reference Range Interpretation Comments Globulin (test code = Globulin) 3.2 2.7-4.2 [facility]2017-10-21 21:40:00 Test Item Value Reference Range Interpretation Comments A/G Ratio (test code = A/G Ratio) 1.2 0.7-1.6 [facility]2017-10-21 21:40:00 Test Item Value Reference Range Interpretation Comments AGAP (test code = AGAP) 12.2 10.0-20.0 [facility]2017-10-21 21:40:00 Test Item Value Reference Range Interpretation Comments B/C Ratio (test code = B/C Ratio) 15 6-25 [facility]2017-10-21 21:40:00 Test Item Value Reference Range Interpretation Comments Lipase Lvl (test code = Lipase Lvl) 178 73-393 [id number] 21:40:00 Test Item Value Reference Range Interpretation Comments Basophils # (test code 0.0 See_Comment [Aut omated message] The = Basophils #) system which generated this result tra nsmitted reference range : <=0.2. The reference r markus was not used to int erpret this result as normal/abnormal . [id number] 21:40:00 Test Item Value Reference Range Interpretation Comments Monocytes # (test code 0.5 See_Comment [Aut omated message] The = Monocytes #) system which generated this result tra nsmitted reference range : <=0.8. The reference r markus was not used to int erpret this result as normal/abnormal . [id number] 21:40:00 Test Item Value Reference Range Interpretation Comments Eosinophils # (test code 0.2 See_Comment [A utomated message] The = Eosinophils #) system whic h generated this result tra nsmitted reference range : <=0.5. The reference r markus was not used to int erpret this result as normal/abnormal . [id number] 21:40:00 Test Item Value Reference Range Interpretation Comments Segs-Bands # (test code = Segs-Bands #) 6.9 1.5-8.1 [id number] 21:40:00 Test Item Value Reference Range Interpretation Comments Lymphocytes # (test code = Lymphocytes 3.0 1.0-5.5 #) [id number] 21:40:00 Test Item Value Reference Range Interpretation Comments Basophils (test code = 0.4 See_Comment [Aut omated message] The Basophils) system which ge nerated this result tra nsmitted reference range : <=1.0. The reference r markus was not used to int erpret this result as normal/abnormal . [id number] 21:40:00 Test Item Value Reference Range Interpretation Comments Lymphocytes (test code = Lymphocytes) 28.1 20.0-40.0 [id number] 21:40:00 Test Item Value Reference Range Interpretation Comments Monocytes (test code = Monocytes) 4.9 2.0-12.0 [id number] 21:40:00 Test Item Value Reference Range Interpretation Comments Eosinophils (test code = 1.6 See_Comment [A utomated message] The Eosinophils) system which ge nerated this result tra nsmitted reference range : <=4.0. The reference r markus was not used to int erpret this result as normal/abnormal . [facility]ent[id number] 21:40:00 Test Item Value Reference Range Interpretation Comments Segs (test code = Segs) 65.0 45.0-75.0 [facility] DentonZiffwamVCJRPETFNA7705-63-76 21:40:00 Test Item Value Reference Range Interpretation Comments Platelet (test code = Platelet) 342 133-450 [facility]WoxoxkpVKDLMROHSQ0645-34-54 21:40:00 Test Item Value Reference Range Interpretation Comments MPV (test code = MPV) 6.9 7.4-10.4 [facility]RqevutrAZWEJGXZBF4595-28-20 21:40:00 Test Item Value Reference Range Interpretation Comments Hgb (test code = Hgb) 13.8 12.0-16.0 [facility]TdkrrngGQSMWPULHG4027-47-36 21:40:00 Test Item Value Reference Range Interpretation Comments Hct (test code = Hct) 41.9 36.0-48.0 [facility]entonOkwxjiyKIRPKWJPDB3454-40-82 21:40:00 Test Item Value Reference Range Interpretation Comments MCV (test code = MCV) 95.4 80.0-98.0 [facility]entonFbcypxxGBNCWZVEIF8884-47-60 21:40:00 Test Item Value Reference Range Interpretation Comments MCH (test code = MCH) 31.4 pg 27.0-31.0 [facility]entonRiioetgRNHMOBUAGL0269-63-27 21:40:00 Test Item Value Reference Range Interpretation Comments MCHC (test code = MCHC) 32.9 32.0-36.0 [facility]entonIzecsmkMKATODZXDJ8976-26-05 21:40:00 Test Item Value Reference Range Interpretation Comments RDW (test code = RDW) 14.0 11.5-14.5 [facility]VfljlcjBBCOMAKPQA6618-64-05 21:40:00 Test Item Value Reference Range Interpretation Comments WBC (test code = WBC) 10.6 3.7-10.4 [facility]entonLdfxvylSOQGJMMFWG4358-25-24 21:40:00 Test Item Value Reference Range Interpretation Comments RBC (test code = RBC) 4.39 4.20-5.40 [facility] AND [id number] 21:40:00 Test Item Value Reference Range Interpretation Comments UA Urobilinogen (test code = UA <=1.0 mg/dL 0.1-1.0 Urobilinogen) [facility] AND [id number] 21:40:00 Test Item Value Reference Range Interpretation Comments UA WBC (test code = 4 See_Comment [Automa francine message] The UA WBC) system which ge nerated this result transmit francine reference range : <=5. The reference range was not used to interpr et this result as angel l/abnormal. [facility] AND [id number] 21:40:00 Test Item Value Reference Range Interpretation Comments UA RBC (test code = 6 See_Comment [Automa francine message] The UA RBC) system which ge nerated this result transmit francine reference range : <=2. The reference range was not used to interpr et this result as angel l/abnormal. [facility] AND [id number] 21:40:00 Test Item Value Reference Range Interpretation Comments UA Mucus (test code = UA Mucus) Many /LPF [facility] AND [id number] 21:40:00 Test Item Value Reference Range Interpretation Comments UA pH (test code = UA pH) 5.0 5.0-8.0 [facility] AND [id number] 21:40:00 Test Item Value Reference Range Interpretation Comments UA Protein (test code = UA Protein) 30 mg/dL [facility] AND [id number] 21:40:00 Test Item Value Reference Range Interpretation Comments UA Glucose (test code = UA Negative mg/dL Glucose) [facility] AND [id number] 21:40:00 Test Item Value Reference Range Interpretation Comments UA Ketones (test code = UA Ketones) 20 mg/dL [facility] AND [id number] 21:40:00 Test Item Value Reference Range Interpretation Comments UA Blood (test code = Negative (02/18/17 4:40 UA Blood) PM) [facility] AND [id number] 21:40:00 Test Item Value Reference Range Interpretation Comments UA Nitrite (test code Negative (02/18/17 4:40 = [facility] Nitrite) PM) [facility] [id number] 21:40:00 Test Item Value Reference Range Interpretation Comments UA Bili (test code = Negative *NA*(02/18/17 UA Bili) 4:40 PM) [facility] [id number] 21:40:00 Test Item Value Reference Range Interpretation Comments UA Color (test code = Dark Yellow UA Color) *NA*(02/18/17 4:40 PM) [facility] [id number] 21:40:00 Test Item Value Reference Range Interpretation Comments UA Turbidity (test code Slight *ABN*(02/18/17 = UA Turbidity) 4:40 PM) [facility] [id number] 21:40:00 Test Item Value Reference Range Interpretation Comments UA Spec Grav (test code = UA Spec Grav) 1.024 [facility] [id number] 21:40:00 Test Item Value Reference Range Interpretation Comments UA Sq Epi (test code = UA Sq Occasional /LPF Epi) [facility] AND [id number] 21:40:00 Test Item Value Reference Range Interpretation Comments UA Leuk Est (test Negative (02/18/17 4:40 code = UA Leuk Est) PM) [facility] [id number] 10:52:00 Test Item Value Reference Range Interpretation Comments Phosphorus (test code = Phosphorus) 2.7 2.5-4.5 [facility] [id number] 10:52:00 Test Item Value Reference Range Interpretation Comments Magnesium Lvl (test code = Magnesium 2.2 1.8-2.4 Lvl) [facility] TylerNpljfvmQVCVESJOISHT4797-98-42 10:52:00 Test Item Value Reference Range Interpretation Comments Chloride Lvl (test code = Chloride Lvl) 109 95-109 [facility] GlxhfzvCEGLOWCAUOGN9322-45-59 10:52:00 Test Item Value Reference Range Interpretation Comments Calcium Lvl (test code = Calcium Lvl) 8.3 8.5-10.5 [facility] IvzfieqKWADHVNNRARG4963-17-07 10:52:00 Test Item Value Reference Range Interpretation Comments AGAP (test code = AGAP) 10.6 10.0-20.0 [facility] GieafecWACABWQJGYTR2097-34-93 10:52:00 Test Item Value Reference Range Interpretation Comments Glucose Lvl (test code = Glucose Lvl) 88 70-99 [facility]RmlmrqeMSKRCSMEXTSB3460-51-93 10:52:00 Test Item Value Reference Range Interpretation Comments Sodium Lvl (test code = Sodium Lvl) 144 135-145 [facility] HospitalNalqajoOVOGSGDNECKA1912-10-77 10:52:00 Test Item Value Reference Range Interpretation Comments Potassium Lvl (test code = Potassium 3.6 3.5-5.1 Lvl) [facility] HospitalQzrwmanKFNBWBCYFDSR8093-17-37 10:52:00 Test Item Value Reference Range Interpretation Comments BUN (test code = BUN) 6 7- [facility] HospitalVkppntzEOCDKYBHRZKA3924-67-05 10:52:00 Test Item Value Reference Range Interpretation Comments Creatinine Lvl (test code = Creatinine 0.61 0.50-1.40 Lvl) [facility] HospitalUquhmzpJBIYVOZSIIGR2905-31-76 10:52:00 Test Item Value Reference Range Interpretation Comments CO2 (test code = CO2) 28 24-32 [facility] HospitalLcbchrfJGAEMQPEIVVM3584-00-17 10:52:00 Test Item Value Reference Range Interpretation Comments eGFR (test code = eGFR) 110 [facility]2017-06-12 09:37:00 Test Item Value Reference Range Interpretation Comments eGFR (test code = eGFR) 110 [facility]2017-06-12 09:37:00 Test Item Value Reference Range Interpretation Comments Sodium Lvl (test code = Sodium Lvl) 140 135-145 [facility]2017-06-12 09:37:00 Test Item Value Reference Range Interpretation Comments Creatinine Lvl (test code = Creatinine 0.61 0.50-1.40 Lvl) [facility]2017-06-12 09:37:00 Test Item Value Reference Range Interpretation Comments Chloride Lvl (test code = Chloride Lvl) 106 95-109 [facility]2017-06-12 09:37:00 Test Item Value Reference Range Interpretation Comments Potassium Lvl (test code = Potassium 3.7 3.5-5.1 Lvl) [facility]2017-06-12 09:37:00 Test Item Value Reference Range Interpretation Comments CO2 (test code = CO2) 31 24-32 [facility]2017-06-12 09:37:00 Test Item Value Reference Range Interpretation Comments Calcium Lvl (test code = Calcium Lvl) 8.4 8.5-10.5 [facility]2017-06-12 09:37:00 Test Item Value Reference Range Interpretation Comments AGAP (test code = AGAP) 6.7 10.0-20.0 [facility]2017-06-12 09:37:00 Test Item Value Reference Range Interpretation Comments BUN (test code = BUN) 9 7-22 [facility]2017-06-12 09:37:00 Test Item Value Reference Range Interpretation Comments Glucose Lvl (test code = Glucose Lvl) 98 70-99 [facility]TjvpzpdLCWDTYLDFT5305-52-14 09:37:00 Test Item Value Reference Range Interpretation Comments Hgb (test code = Hgb) 11.8 12.0-16.0 [facility]entonZqbaekbLFEKVIYNFA8838-28-91 09:37:00 Test Item Value Reference Range Interpretation Comments WBC (test code = WBC) 8.0 3.7-10.4 [facility]entonZmkxvxtHHZBECZXFK6524-71-82 09:37:00 Test Item Value Reference Range Interpretation Comments MCH (test code = MCH) 30.2 pg 27.0-31.0 [facility]entonLvuulbuDLTPUQAQAE4858-32-50 09:37:00 Test Item Value Reference Range Interpretation Comments RBC (test code = RBC) 3.90 4.20-5.40 [facility]SrqecvlOFESSWJVYE1261-23-59 09:37:00 Test Item Value Reference Range Interpretation Comments Hct (test code = Hct) 36.5 36.0-48.0 [facility]FxvtnhwSGXHSDEYEN0693-47-63 09:37:00 Test Item Value Reference Range Interpretation Comments MCV (test code = MCV) 93.6 80.0-98.0 [facility]entonLozzaplKQGSTZHBOU7077-75-05 09:37:00 Test Item Value Reference Range Interpretation Comments RDW (test code = RDW) 14.7 11.5-14.5 [facility]EwmwabpNNOUAUSLAO8745-73-55 09:37:00 Test Item Value Reference Range Interpretation Comments MPV (test code = MPV) 6.6 7.4-10.4 [facility]CswvekvMYQZGVMLJW7414-63-33 09:37:00 Test Item Value Reference Range Interpretation Comments MCHC (test code = MCHC) 32.3 32.0-36.0 [facility]entonGeiocbzKVXOOMKNNF8128-33-55 09:37:00 Test Item Value Reference Range Interpretation Comments Platelet (test code = Platelet) 290 133-450 [facility]PihrcgsYSBVEQFQPH7508-11-98 09:37:00 Test Item Value Reference Range Interpretation Comments Basophils # (test code 0.0 See_Comment [Aut omated message] The = Basophils #) system which generated this result tra nsmitted reference range : <=0.2. The reference r markus was not used to int erpret this result as normal/abnormal . [facility]entonKqvfvxmRYSMOVFMXS4705-33-10 09:37:00 Test Item Value Reference Range Interpretation Comments Monocytes (test code = Monocytes) 5.3 2.0-12.0 [facility]entonCkqbadiKKTVSCIDBK2275-94-18 09:37:00 Test Item Value Reference Range Interpretation Comments Lymphocytes (test code = Lymphocytes) 28.2 20.0-40.0 [facility]WsjkqypFMTNKJBZIU4864-37-39 09:37:00 Test Item Value Reference Range Interpretation Comments Segs (test code = Segs) 64.9 45.0-75.0 [facility]NkjhysfOPIDYDEQGH4559-41-49 09:37:00 Test Item Value Reference Range Interpretation Comments Eosinophils (test code = 1.4 See_Comment [A utomated message] The Eosinophils) system which ge nerated this result tra nsmitted reference range : <=4.0. The reference r markus was not used to int erpret this result as normal/abnormal . [facility]QbcpxphQAVWIPJUKA1976-98-85 09:37:00 Test Item Value Reference Range Interpretation Comments Basophils (test code = 0.2 See_Comment [Aut omated message] The Basophils) system which ge nerated this result tra nsmitted reference range : <=1.0. The reference r markus was not used to int erpret this result as normal/abnormal . [facility]entonFarajntWDLUJDMDBE6550-57-43 09:37:00 Test Item Value Reference Range Interpretation Comments Lymphocytes # (test code = Lymphocytes 2.3 1.0-5.5 #) [facility]entonBnbhrmhDAJIJWLPUB6051-07-23 09:37:00 Test Item Value Reference Range Interpretation Comments Eosinophils # (test code 0.1 See_Comment [A utomated message] The = Eosinophils #) system whic h generated this result tra nsmitted reference range : <=0.5. The reference r markus was not used to int erpret this result as normal/abnormal . [facility]ovuwuXXWABGSKVX4446-55-98 09:37:00 Test Item Value Reference Range Interpretation Comments Segs-Bands # (test code = Segs-Bands #) 5.2 1.5-8.1 [facility] HospitalHtffdulKOSIQUMAHA0606-39-15 09:37:00 Test Item Value Reference Range Interpretation Comments Monocytes # (test code 0.4 See_Comment [Aut omated message] The = Monocytes #) system which generated this result tra nsmitted reference range : <=0.8. The reference r markus was not used to int erpret this result as normal/abnormal . [facility] GSKLWIEKYR5019-96-79 08:26:00 Test Item Value Reference Range Interpretation Comments C difficile DNA (test Positive code = C difficile DNA) 1*ABN*(10/10/16 3:26 AM) [facility] [id number] 08:26:00 Test Item Value Reference Range Interpretation Comments Fecal Leukocyte (test None Seen (10/10/16 code = Fecal Leukocyte) 3:26 AM) [facility] [id number] 04:11:00 Test Item Value Reference Range Interpretation Comments B/C Ratio (test code = B/C Ratio) 13 6-25 [facility] [id number] 04:11:00 Test Item Value Reference Range Interpretation Comments AGAP (test code = AGAP) 10.6 10.0-20.0 [facility] [id number] 04:11:00 Test Item Value Reference Range Interpretation Comments Globulin (test code = Globulin) 3.7 2.7-4.2 [facility] [id number] 04:11:00 Test Item Value Reference Range Interpretation Comments A/G Ratio (test code = A/G Ratio) 1.1 0.7-1.6 [facility] [id number] 04:11:00 Test Item Value Reference Range Interpretation Comments Bili Total (test code = Bili Total) 0.2 0.2-1.3 [facility] [id number] 04:11:00 Test Item Value Reference Range Interpretation Comments AST (test code = AST) 13 See_Comment [Auto mated message] The system which ge nerated this result transmit francine reference range : <=37. The reference range was not used to interpr et this result as angel l/abnormal. [facility]2017-06-12 04:11:00 Test Item Value Reference Range Interpretation Comments Alk Phos (test code = Alk Phos) 110 39-136 [facility]2017-06-12 04:11:00 Test Item Value Reference Range Interpretation Comments eGFR (test code = eGFR) 82 [facility]2017-06-12 04:11:00 Test Item Value Reference Range Interpretation Comments Creatinine Lvl (test code = Creatinine 0.86 0.50-1.40 Lvl) [facility]2017-06-12 04:11:00 Test Item Value Reference Range Interpretation Comments CO2 (test code = CO2) 34 24-32 [facility]2017-06-12 04:11:00 Test Item Value Reference Range Interpretation Comments Calcium Lvl (test code = Calcium Lvl) 9.5 8.5-10.5 [facility]2017-06-12 04:11:00 Test Item Value Reference Range Interpretation Comments Glucose Lvl (test code = Glucose Lvl) 125 70-99 [facility]2017-06-12 04:11:00 Test Item Value Reference Range Interpretation Comments BUN (test code = BUN) 11 7-22 [facility]2017-06-12 04:11:00 Test Item Value Reference Range Interpretation Comments Potassium Lvl (test code = Potassium 3.6 3.5-5.1 Lvl) [facility]2017-06-12 04:11:00 Test Item Value Reference Range Interpretation Comments Sodium Lvl (test code = Sodium Lvl) 140 135-145 [facility]2017-06-12 04:11:00 Test Item Value Reference Range Interpretation Comments Chloride Lvl (test code = Chloride Lvl) 99 95-109 [facility]2017-06-12 04:11:00 Test Item Value Reference Range Interpretation Comments Total Protein (test code = Total 7.8 6.4-8.4 Protein) [facility]2017-06-12 04:11:00 Test Item Value Reference Range Interpretation Comments Albumin Lvl (test code = Albumin Lvl) 4.1 3.5-5.0 [facility]2017-06-12 04:11:00 Test Item Value Reference Range Interpretation Comments ALT (test code = ALT) 18 See_Comment [Auto mated message] The system which ge nerated this result transmit francine reference range : <=65. The reference range was not used to interpr et this result as angel l/abnormal. [place] [id number] 04:11:00 Test Item Value Reference Range Interpretation Comments hCG Tot (test code = hCG Tot) no gt [facility]VkrrdhqPRHMCTGLOA7905-11-30 04:11:00 Test Item Value Reference Range Interpretation Comments Segs-Bands # (test code = Segs-Bands #) 7.5 1.5-8.1 [facility]entonMfgahjlYYKDTYFEPY9909-72-28 04:11:00 Test Item Value Reference Range Interpretation Comments Segs (test code = Segs) 67.9 45.0-75.0 [facility]entonDtpdoawLIFDLGBAMF6239-95-68 04:11:00 Test Item Value Reference Range Interpretation Comments Eosinophils (test code = 1.4 See_Comment [A utomated message] The Eosinophils) system which ge nerated this result tra nsmitted reference range : <=4.0. The reference r markus was not used to int erpret this result as normal/abnormal . [facility]entonXyugneoNUMYOFPTGT7108-62-39 04:11:00 Test Item Value Reference Range Interpretation Comments Monocytes (test code = Monocytes) 4.5 2.0-12.0 [facility]entonWcfgpwpBIPLDODFUA0871-08-65 04:11:00 Test Item Value Reference Range Interpretation Comments Basophils (test code = 0.3 See_Comment [Aut omated message] The Basophils) system which ge nerated this result tra nsmitted reference range : <=1.0. The reference r markus was not used to int erpret this result as normal/abnormal . [facility]entonUfiwabyWVZPEVMSVV2212-21-84 04:11:00 Test Item Value Reference Range Interpretation Comments Lymphocytes (test code = Lymphocytes) 25.9 20.0-40.0 [facility]entonEwbnuyyEQOZACLMNA1311-71-36 04:11:00 Test Item Value Reference Range Interpretation Comments Eosinophils # (test code 0.2 See_Comment [A utomated message] The = Eosinophils #) system whic h generated this result tra nsmitted reference range : <=0.5. The reference r markus was not used to int erpret this result as normal/abnormal . [facility]entonYimthvrOLVKXIPIGT7322-25-25 04:11:00 Test Item Value Reference Range Interpretation Comments Lymphocytes # (test code = Lymphocytes 2.9 1.0-5.5 #) [facility]entonYftokwgWSJMSWOWOP7536-73-59 04:11:00 Test Item Value Reference Range Interpretation Comments Monocytes # (test code 0.5 See_Comment [Aut omated message] The = Monocytes #) system which generated this result tra nsmitted reference range : <=0.8. The reference r markus was not used to int erpret this result as normal/abnormal . [facility]entonRkkdgrsRUZLGEPIFP3184-40-09 04:11:00 Test Item Value Reference Range Interpretation Comments Basophils # (test code 0.0 See_Comment [Aut omated message] The = Basophils #) system which generated this result tra nsmitted reference range : <=0.2. The reference r markus was not used to int erpret this result as normal/abnormal . [facility]entonDxefkmzQFYSXRXGYS6997-16-79 04:11:00 Test Item Value Reference Range Interpretation Comments MCHC (test code = MCHC) 32.7 32.0-36.0 [facility]VzvdnhmCMBXYINUFW1304-66-79 04:11:00 Test Item Value Reference Range Interpretation Comments MCH (test code = MCH) 30.5 pg 27.0-31.0 [facility]entonKaayzwxNSTQBAFSGW0185-81-99 04:11:00 Test Item Value Reference Range Interpretation Comments RBC (test code = RBC) 4.68 4.20-5.40 [facility]entonHgehbezVRXKQMWKII7690-07-91 04:11:00 Test Item Value Reference Range Interpretation Comments WBC (test code = WBC) 11.1 3.7-10.4 [facility]entonAdenoyxLXTZMGJTYP6418-35-19 04:11:00 Test Item Value Reference Range Interpretation Comments MCV (test code = MCV) 93.4 80.0-98.0 [facility]entonKcghelmMSHKJEEMBK5349-85-03 04:11:00 Test Item Value Reference Range Interpretation Comments Hgb (test code = Hgb) 14.3 12.0-16.0 [facility]entonAetsnbhEFBMOICABT7605-28-30 04:11:00 Test Item Value Reference Range Interpretation Comments Hct (test code = Hct) 43.7 36.0-48.0 [facility]entonTtqqvfwMVPMNTLTUB1861-84-31 04:11:00 Test Item Value Reference Range Interpretation Comments Platelet (test code = Platelet) 396 133-450 [facility]entonHhnryceDLABIDBAEG1379-83-28 04:11:00 Test Item Value Reference Range Interpretation Comments RDW (test code = RDW) 14.9 11.5-14.5 [facility]entonIonxuckYXWZTHZBXU5992-88-86 04:11:00 Test Item Value Reference Range Interpretation Comments MPV (test code = MPV) 7.0 7.4-10.4 [facility] AND [id number] 04:11:00 Test Item Value Reference Range Interpretation Comments UA Spec Grav (test code = UA Spec Grav) 1.020 [facility] AND [id number] 04:11:00 Test Item Value Reference Range Interpretation Comments UA Urobilinogen (test code = UA <=1.0 mg/dL 0.1-1.0 Urobilinogen) [facility] AND [id number] 04:11:00 Test Item Value Reference Range Interpretation Comments UA Trans Epi (test code = UA Trans Epi) 4 [facility] AND [id number] 04:11:00 Test Item Value Reference Range Interpretation Comments UA Leuk Est (test Negative (10/09/16 11:11 code = UA Leuk Est) PM) [facility] AND [id number] 04:11:00 Test Item Value Reference Range Interpretation Comments UA Ketones (test code = UA Negative mg/dL Ketones) [facility] AND [id number] 04:11:00 Test Item Value Reference Range Interpretation Comments UA Blood (test code = Negative (10/09/16 11:11 UA Blood) PM) [facility] AND [id number] 04:11:00 Test Item Value Reference Range Interpretation Comments UA Bili (test code = Negative *NA*(10/09/16 UA Bili) 11:11 PM) [facility] AND [id number] 04:11:00 Test Item Value Reference Range Interpretation Comments UA Nitrite (test code Negative (10/09/16 11:11 = UA Nitrite) PM) [facility] AND [id number] 04:11:00 Test Item Value Reference Range Interpretation Comments UA Sq Epi (test code = UA Sq Occasional /LPF Epi) [facility] AND [id number] 04:11:00 Test Item Value Reference Range Interpretation Comments UA RBC (test code = 2 See_Comment [Automa francine message] The UA RBC) system which ge nerated this result transmit francine reference range : <=2. The reference range was not used to interpr et this result as angel l/abnormal. [facility] AND [id number] 04:11:00 Test Item Value Reference Range Interpretation Comments UA Mucus (test code = UA Mucus) Few /LPF [facility] AND [id number] 04:11:00 Test Item Value Reference Range Interpretation Comments UA Hyal Cast (test 4 See_Comment [Automat ed message] The code = UA Hyal Cast) system which generated this result transmit francine reference range : <=2. The reference range was not used to interpr et this result as angel l/abnormal. [facility] AND [id number] 04:11:00 Test Item Value Reference Range Interpretation Comments UA Amorph Priti (test code = Occasional /HPF UA Amorph Priti) [facility] AND [id number] 04:11:00 Test Item Value Reference Range Interpretation Comments UA Turbidity (test code Marked *ABN*(10/09/16 = UA Turbidity) 11:11 PM) [facility] AND [id number] 04:11:00 Test Item Value Reference Range Interpretation Comments UA Color (test code = Dark Yellow UA Color) *NA*(10/09/16 11:11 PM) [facility] AND [id number] 04:11:00 Test Item Value Reference Range Interpretation Comments UA pH (test code = UA pH) 8.0 5.0-8.0 [facility] AND [id number] 04:11:00 Test Item Value Reference Range Interpretation Comments UA Glucose (test code = UA Negative mg/dL Glucose) [facility] AND [id number] 04:11:00 Test Item Value Reference Range Interpretation Comments UA Protein (test code = UA Protein) 100 mg/dL [facility] [id number] 14:26:[address] [id number] IMAGING REPORTPat ient Name: Manuel RODRIGUEZ of Service: [id number]: 45 Sex: F Order #: [id number] Room: ERSDOB: 1970 X-Ray Number: [id number] Record Number: [id number] Hospital Number: [id number] Physician: KISHAN MUNOZ -Ordering Physician: HERNANDEZ MONTEMAYOR ABDOMEN AND PELVIS WITH CONTRAST:CLINICAL HISTORY: Left-sided abdominal pain for 2 weeks; nausea andvomiting; history of bowel resection and hysterectomy; pain pumpTECHNIQUE: Examination is performed following intravenous administration [id number] of Isovue-300. 4 mm axial sections were [...] are seen in the ascending colon. This isnonspecific.Thebowel loops are unobstructed.The focal wall thickening of the descending colon noted on 16 July 2016has resolved in the interval.Impression:1. No acute changes are demonstrated.2. The changes of colitis noted on 16 July 2016 in the descending colonhave resolved in the interval.Electronically Signed By: Santiago Alonzo M.D., 07/26/2016 2:23 PMLegally authenticated by TIFFANIE Espinosa 2016-07-26 14:23:48CT ABDOMEN/PELVIS GATTTDG4077-06-55 02:49:[address] [id number] IMAGING REPORTPatient Name: Manuel RODRIGUEZ of Service: [id number]: 45 Sex: F Order #: [id number] [facility] 1970 X-Ray Number: [id number] Record Number: [id number] Hospital Number: [id number] Physician: BLAKE ALLEN -Ordering Physician: AURORA LOWERY abdomen and pelvis without IV contrast, with GI contrast 1842 hours07/16/2016HISTORY: Abdominal pain with nausea, history of Crohn's disease, multipleprior surgeriesCOMPARISON: NoneFINDINGS: Evaluation is limited and difficult.Minimal scattered free fluid is present. There may be mildscattered/diffuse mesenteric edema. There is nofree air. There is no bowelobstruction. Mild/moderate colonic wall thickening is present, mainlyinvol ving descending and sigmoid colon, suggesting colitis. No abscess isseen. Much of the small bowel has been removed.There is no urinary dilation. The gallbladder is absent there is anabdominal wall painpump. Liver and spleen are normal size.IMPRESSION:1. Minimal free fluid, a nonspecific finding2. There is distal colitis. The appearance is nonspecific.Electronically Signed By: Sylvain Galo M.D., 07/17/2016 2:47 AMLegally authenticated by MARTINEZ VALDEZ 2016-07-17 02:47:19ABDOMEN 2 YJUXK1627-17-70 12:14:[address]AGNOST[address] IMAGING REPORTPat ient Name: Manuel RODRIGUEZ of Service: [id number]: 45 Sex: F Order #: [id number] [facility] 1970 [facility] Number: [id number] Record Number: [id number] Hospital Number: [id number] Physician: ANMOL TEJEDAOrdering Physician: Elvis GARCIA 2 views 07/15/2016 at 11:40 AM.History: 45-year-old female. Abdominal pain. Left upper quadrant pain.History of Crohn's disease. Previous cholecystectomy, hysterectomy andintestinal surgery.Comparison: No comparison exam is available.Findings:A total of 4 images are submitted.There are cholecystectomy clips in the right upper quadrant. Thereis anintrathecal catheter with a reservoir projecting over [...] 12:12 PMLegally authenticated by RAFA GALVAN 2016-07-15 12:12:28[id number] 19:01:00 Test Item Value Reference Range Interpretation Comments AGAP (test code = AGAP) 11.3 10.0-20.0 [facility]2016-10-12 19:01:00 Test Item Value Reference Range Interpretation Comments A/G Ratio (test code = A/G Ratio) 0.7 0.7-1.6 [facility]2016-10-12 19:01:00 Test Item Value Reference Range Interpretation Comments Globulin (test code = Globulin) 4.4 2.7-4.2 [facility]2016-10-12 19:01:00 Test Item Value Reference Range Interpretation Comments B/C Ratio (test code = B/C Ratio) 11 6-25 [facility]xmQFMEQRTKSK6203-27-17 19:01:00 Test Item Value Reference Range Interpretation Comments MPV (test code = MPV) 7.0 7.4-10.4 [facility]entonMslflurUVVWNZXELJ8424-27-67 19:01:00 Test Item Value Reference Range Interpretation Comments Platelet (test code = Platelet) 340 133-450 [facility]entonPqgenquYCAAILNUHQ6608-02-98 19:01:00 Test Item Value Reference Range Interpretation Comments RDW (test code = RDW) 13.9 11.5-14.5 [facility]entonElbktujWYJWTCUTAG9811-86-27 19:01:00 Test Item Value Reference Range Interpretation Comments MCH (test code = MCH) 30.2 pg 27.0-31.0 [facility]entonBoswluoKUZJZXBVJG6631-24-36 19:01:00 Test Item Value Reference Range Interpretation Comments MCHC (test code = MCHC) 33.4 32.0-36.0 [facility]entonBeawrakSQBQRDKPOL2132-22-37 19:01:00 Test Item Value Reference Range Interpretation Comments WBC (test code = WBC) 11.0 3.7-10.4 [facility]entonEszmotpYEWPEQUHMX8723-37-40 19:01:00 Test Item Value Reference Range Interpretation Comments MCV (test code = MCV) 90.4 80.0-98.0 [facility]entonJxajqstWHKPQLVXXD4798-25-08 19:01:00 Test Item Value Reference Range Interpretation Comments Hct (test code = Hct) 43.3 36.0-48.0 [facility]entonNdhshcfMGZNAOWWQU0495-20-21 19:01:00 Test Item Value Reference Range Interpretation Comments Hgb (test code = Hgb) 14.5 12.0-16.0 [facility]entonQyxvamcLQRSDQZFON0263-01-48 19:01:00 Test Item Value Reference Range Interpretation Comments RBC (test code = RBC) 4.79 4.20-5.40 [facility]entonCfoopzySBUSBSMNNN8074-93-67 19:01:00 Test Item Value Reference Range Interpretation Comments Basophils (test code = 0.9 See_Comment [Aut omated message] The Basophils) system which ge nerated this result tra nsmitted reference range : <=1.0. The reference r markus was not used to int erpret this result as normal/abnormal . [facility]entonQhoamjiHZITLPHJNO5933-28-22 19:01:00 Test Item Value Reference Range Interpretation Comments Segs-Bands # (test code = Segs-Bands #) 7.4 1.5-8.1 [facility]entonPzjuaiwQUXIDCNWKH9488-53-04 19:01:00 Test Item Value Reference Range Interpretation Comments Eosinophils (test code = 1.6 See_Comment [A utomated message] The Eosinophils) system which ge nerated this result tra nsmitted reference range : <=4.0. The reference r markus was not used to int erpret this result as normal/abnormal . [facility]entonRcfudkxZJDNKLYQDO6103-23-32 19:01:00 Test Item Value Reference Range Interpretation Comments Monocytes (test code = Monocytes) 5.0 2.0-12.0 [facility]entonStqveirYYSJMNUYTR0511-92-56 19:01:00 Test Item Value Reference Range Interpretation Comments Lymphocytes (test code = Lymphocytes) 25.2 20.0-40.0 [facility]entonCveeiniJGJARGVZDC7904-17-68 19:01:00 Test Item Value Reference Range Interpretation Comments Eosinophils # (test code 0.2 See_Comment [A utomated message] The = Eosinophils #) system whic h generated this result tra nsmitted reference range : <=0.5. The reference r markus was not used to int erpret this result as normal/abnormal . [facility]entonEfhhmorZHCVGPVPMJ5412-09-95 19:01:00 Test Item Value Reference Range Interpretation Comments Basophils # (test code 0.1 See_Comment [Aut omated message] The = Basophils #) system which generated this result tra nsmitted reference range : <=0.2. The reference r markus was not used to int erpret this result as normal/abnormal . [facility]entonOlpbecaRQDBTEYYPL8198-93-93 19:01:00 Test Item Value Reference Range Interpretation Comments Monocytes # (test code 0.6 See_Comment [Aut omated message] The = Monocytes #) system which generated this result tra nsmitted reference range : <=0.8. The reference r markus was not used to int erpret this result as normal/abnormal . [facility]entonEiflcdoYVUKTGOCRE9122-81-22 19:01:00 Test Item Value Reference Range Interpretation Comments Lymphocytes # (test code = Lymphocytes 2.8 1.0-5.5 #) [facility]entonUlemtufVKFWORHYBU7218-00-59 19:01:00 Test Item Value Reference Range Interpretation Comments Segs (test code = Segs) 67.3 45.0-75.0 [facility]2016-10-12 19:01:00 Test Item Value Reference Range Interpretation Comments Lactic Acid Lvl (test code = Lactic 2.1 0.5-2.2 Acid Lvl) [facility]2016-10-12 19:01:00 Test Item Value Reference Range Interpretation Comments eGFR (test code = eGFR) 97 [facility]2016-10-12 19:01:00 Test Item Value Reference Range Interpretation Comments Bili Total (test code = Bili Total) 0.3 0.2-1.3 [facility]2016-10-12 19:01:00 Test Item Value Reference Range Interpretation Comments Alk Phos (test code = Alk Phos) 98 39-136 [facility]2016-10-12 19:01:00 Test Item Value Reference Range Interpretation Comments AST (test code = AST) 24 See_Comment [Auto mated message] The system which ge nerated this result transmit francine reference range : <=37. The reference range was not used to interpr et this result as angel l/abnormal. [facility]2016-10-12 19:01:00 Test Item Value Reference Range Interpretation Comments ALT (test code = ALT) 24 See_Comment [Auto mated message] The system which ge nerated this result transmit francine reference range : <=65. The reference range was not used to interpr et this result as angel l/abnormal. [facility]2016-10-12 19:01:00 Test Item Value Reference Range Interpretation Comments Potassium Lvl (test code = Potassium 4.3 3.5-5.1 Lvl) [facility]2016-10-12 19:01:00 Test Item Value Reference Range Interpretation Comments Creatinine Lvl (test code = Creatinine 0.75 0.50-1.40 Lvl) [facility]2016-10-12 19:01:00 Test Item Value Reference Range Interpretation Comments Sodium Lvl (test code = Sodium Lvl) 137 135-145 [facility]2016-10-12 19:01:00 Test Item Value Reference Range Interpretation Comments Glucose Lvl (test code = Glucose Lvl) 91 70-99 [facility]2016-10-12 19:01:00 Test Item Value Reference Range Interpretation Comments BUN (test code = BUN) 8 7-22 [facility]2016-10-12 19:01:00 Test Item Value Reference Range Interpretation Comments Albumin Lvl (test code = Albumin Lvl) 3.2 3.5-5.0 [facility]2016-10-12 19:01:00 Test Item Value Reference Range Interpretation Comments Total Protein (test code = Total 7.6 6.4-8.4 Protein) [facility]2016-10-12 19:01:00 Test Item Value Reference Range Interpretation Comments CO2 (test code = CO2) 26 24-32 [facility]2016-10-12 19:01:00 Test Item Value Reference Range Interpretation Comments Calcium Lvl (test code = Calcium Lvl) 8.4 8.5-10.5 [facility]2016-10-12 19:01:00 Test Item Value Reference Range Interpretation Comments Chloride Lvl (test code = Chloride Lvl) 104 95-109 [facility] AND [id number] 15:41:00 Test Item Value Reference Range Interpretation Comments UA Sq Epi (test code = UA Sq Epi) Few /LPF [facility] AND [id number] 15:41:00 Test Item Value Reference Range Interpretation Comments UA WBC (test code = UA WBC) 3-5 /HPF [facility] AND [id number] 15:41:00 Test Item Value Reference Range Interpretation Comments UA Bacteria (test code = UA Few /HPF Bacteria) [facility] [id number] 15:41:00 Test Item Value Reference Range Interpretation Comments UA RBC (test code = 0-2 /HPF See_Comment [Automa francine message] The UA RBC) system which ge nerated this result tra nsmitted reference range : <=2. The reference range was not used to interpr et this result as angel l/abnormal. [facility] AND [id number] 15:41:00 Test Item Value Reference Range Interpretation Comments UA Mucus (test code = None Seen (08/13/14 UA Mucus) 10:41 AM) [facility] AND [id number] 15:41:00 Test Item Value Reference Range Interpretation Comments UA Protein (test code = Trace *ABN*(08/13/14 UA Protein) 10:41 AM) [facility] AND [id number] 15:41:00 Test Item Value Reference Range Interpretation Comments UA Glucose (test code Negative (08/13/14 10:41 = UA Glucose) AM) [facility] AND [id number] 15:41:00 Test Item Value Reference Range Interpretation Comments UA Ketones (test code Negative *NA*(08/13/14 = UA Ketones) 10:41 AM) [facility] [id number] 15:41:00 Test Item Value Reference Range Interpretation Comments UA Bili (test code = Negative *NA*(08/13/14 UA Bili) 10:41 AM) [facility] [id number] 15:41:00 Test Item Value Reference Range Interpretation Comments UA Urobilinogen (test code = UA 0.2 0.1-1.0 Urobilinogen) [facility] AND [id number] 15:41:00 Test Item Value Reference Range Interpretation Comments UA Nitrite (test code Negative (08/13/14 10:41 = UA Nitrite) AM) [facility] AND [id number] 15:41:00 Test Item Value Reference Range Interpretation Comments UA Leuk Est (test code Small *ABN*(08/13/14 = UA Leuk Est) 10:41 AM) [facility] AND [id number] 15:41:00 Test Item Value Reference Range Interpretation Comments UA Blood (test code = Negative (08/13/14 10:41 UA Blood) AM) [facility] AND [id number] 15:41:00 Test Item Value Reference Range Interpretation Comments UA Spec Grav (test >=1.030 *ABN*(08/13/14 code = UA Spec Grav) 10:41 AM) [facility] AND [id number] 15:41:00 Test Item Value Reference Range Interpretation Comments UA pH (test code = UA pH) 6.0 1 5.0-8.0 [facility] AND [id number] 15:41:00 Test Item Value Reference Range Interpretation Comments UA Color (test code = Yellow *NA*(08/13/14 UA Color) 10:41 AM) [facility] AND [id number] 15:41:00 Test Item Value Reference Range Interpretation Comments UA Turbidity (test code = Clear (08/13/14 10:41 UA Turbidity) AM) [facility]2015-04-15 12:37:00 Test Item Value Reference Range Interpretation Comments eGFR (test code = eGFR) 70 [facility]2015-04-15 12:37:00 Test Item Value Reference Range Interpretation Comments Sodium Lvl (test code = Sodium Lvl) 140 135-145 [facility]2015-04-15 12:37:00 Test Item Value Reference Range Interpretation Comments Creatinine Lvl (test code = Creatinine 1.0 0.5-1.4 Lvl) [facility]2015-04-15 12:37:00 Test Item Value Reference Range Interpretation Comments BUN (test code = BUN) 29 7-22 [facility]2015-04-15 12:37:00 Test Item Value Reference Range Interpretation Comments Potassium Lvl (test code = Potassium 2.7 3.5-5.1 Lvl) [facility]2015-04-15 12:37:00 Test Item Value Reference Range Interpretation Comments Glucose Lvl (test code = Glucose Lvl) 64 70-99 [facility]2015-04-15 12:37:00 Test Item Value Reference Range Interpretation Comments Bili Total (test code = Bili Total) 0.7 0.2-1.3 [facility]2015-04-15 12:37:00 Test Item Value Reference Range Interpretation Comments Alk Phos (test code = Alk Phos) 82 39-136 [facility]2015-04-15 12:37:00 Test Item Value Reference Range Interpretation Comments AST (test code = AST) 24 See_Comment [Auto mated message] The system which ge nerated this result transmit francine reference range : <=37. The reference range was not used to interpr et this result as angel l/abnormal. [facility]2015-04-15 12:37:00 Test Item Value Reference Range Interpretation Comments Albumin Lvl (test code = Albumin Lvl) 4.2 3.5-5.0 [facility]2015-04-15 12:37:00 Test Item Value Reference Range Interpretation Comments B/C Ratio (test code = B/C Ratio) 29 6-25 [facility]2015-04-15 12:37:00 Test Item Value Reference Range Interpretation Comments ALT (test code = ALT) 26 See_Comment [Auto mated message] The system which ge nerated this result transmit francine reference range : <=65. The reference range was not used to interpr et this result as angel l/abnormal. [facility]2015-04-15 12:37:00 Test Item Value Reference Range Interpretation Comments Calcium Lvl (test code = Calcium Lvl) 9.0 8.5-10.5 [facility]2015-04-15 12:37:00 Test Item Value Reference Range Interpretation Comments AGAP (test code = AGAP) 8.7 10.0-20.0 [facility]2015-04-15 12:37:00 Test Item Value Reference Range Interpretation Comments CO2 (test code = CO2) 29 24-32 [place] 056485-04-15 12:37:00 Test Item Value Reference Range Interpretation Comments Chloride Lvl (test code = Chloride Lvl) 105 95-109 [facility]2015-04-15 12:37:00 Test Item Value Reference Range Interpretation Comments A/G Ratio (test code = A/G Ratio) 1.2 0.7-1.6 [facility]2015-04-15 12:37:00 Test Item Value Reference Range Interpretation Comments Globulin (test code = Globulin) 3.5 2.0-4.0 [facility]2015-04-15 12:37:00 Test Item Value Reference Range Interpretation Comments Total Protein (test code = Total 7.7 6.4-8.4 Protein) [facility]bfuxqsXIYIYOROLA0274-57-21 12:37:00 Test Item Value Reference Range Interpretation Comments RDW (test code = RDW) 14.1 11.5-14.5 [facility]EphzyssCUCTCRPLHM2607-53-59 12:37:00 Test Item Value Reference Range Interpretation Comments MCH (test code = MCH) 30.5 pg 27.0-31.0 [facility]YyfqcbeZTFVIOMUQF0347-12-29 12:37:00 Test Item Value Reference Range Interpretation Comments MCHC (test code = MCHC) 33.3 32.0-36.0 [facility]IkjzepgXUZJWDSQGF4970-64-44 12:37:00 Test Item Value Reference Range Interpretation Comments MPV (test code = MPV) 6.7 7.4-10.4 [facility]entonIwsjsweYETZOFUUTF2679-75-27 12:37:00 Test Item Value Reference Range Interpretation Comments Platelet (test code = Platelet) 256 133-450 [facility]entonSmownbeNBKWQRKSUE0243-42-10 12:37:00 Test Item Value Reference Range Interpretation Comments MCV (test code = MCV) 91.6 80.0-98.0 [facility]KzgdqlqDOSQTTZOUA1971 12:37:00 Test Item Value Reference Range Interpretation Comments Hct (test code = Hct) 40.4 36.0-48.0 [facility]entonZhqyintKVCBLQTXKT8477-09-44 12:37:00 Test Item Value Reference Range Interpretation Comments Hgb (test code = Hgb) 13.4 12.0-16.0 [facility]entonQaoncdnKQJLQVOKIA0883-89-91 12:37:00 Test Item Value Reference Range Interpretation Comments WBC (test code = WBC) 8.0 3.7-10.4 [facility]entonJufpucvXKYYKUAUQX7176-03-32 12:37:00 Test Item Value Reference Range Interpretation Comments RBC (test code = RBC) 4.41 4.20-5.40 [facility]entonArvyrcqIQQODJIPMM1648-47-64 12:37:00 Test Item Value Reference Range Interpretation Comments Basophils # (test code 0.0 See_Comment [Aut omated message] The = Basophils #) system which generated this result tra nsmitted reference range : <=0.2. The reference r markus was not used to int erpret this result as normal/abnormal . [facility]entonXppzsnnLFBJKJZSPS6339-51-20 12:37:00 Test Item Value Reference Range Interpretation Comments Lymphocytes # (test code = Lymphocytes 2.4 1.0-5.5 #) [facility]entonDilrhvqEBDMATSIYR0229-42-97 12:37:00 Test Item Value Reference Range Interpretation Comments Segs-Bands # (test code = Segs-Bands #) 4.9 1.5-8.1 [facility]entonItivhxdDRBLPKCJYV9472-07-25 12:37:00 Test Item Value Reference Range Interpretation Comments Eosinophils # (test code 0.1 See_Comment [A utomated message] The = Eosinophils #) system wh h generated this result tra nsmitted reference range : <=0.5. The reference r markus was not used to int erpret this result as normal/abnormal . [facility]entonKcvjgkmQUTHJCKCXU3713-81-29 12:37:00 Test Item Value Reference Range Interpretation Comments Monocytes # (test code 0.5 See_Comment [Aut omated message] The = Monocytes #) system which generated this result tra nsmitted reference range : <=0.8. The reference r markus was not used to int erpret this result as normal/abnormal . [facility]entonZzmpecnXDGAOZFJXC1303-79-10 12:37:00 Test Item Value Reference Range Interpretation Comments Eosinophils (test code = 1.6 See_Comment [A utomated message] The Eosinophils) system which ge nerated this result tra nsmitted reference range : <=4.0. The reference r markus was not used to int erpret this result as normal/abnormal . [facility]entonZkyfdgoXQEDIPAHLB8300-20-93 12:37:00 Test Item Value Reference Range Interpretation Comments Monocytes (test code = Monocytes) 6.5 2.0-12.0 [facility]entonDbeoarpPCPDGZIBZJ7092-22-67 12:37:00 Test Item Value Reference Range Interpretation Comments Lymphocytes (test code = Lymphocytes) 30.0 20.0-40.0 [facility]KvzseiyBITJKUJVAF7954-45-31 12:37:00 Test Item Value Reference Range Interpretation Comments Segs (test code = Segs) 61.6 45.0-75.0 [facility]entonCbukebnUSIJZZGKUS5700-98-47 12:37:00 Test Item Value Reference Range Interpretation Comments Basophils (test code = 0.3 See_Comment [Aut omated message] The Basophils) system which ge nerated this result tra nsmitted reference range : <=1.0. The reference r markus was not used to int erpret this result as normal/abnormal . [facility]2014-11-09 13:50:00 Test Item Value Reference Range Interpretation Comments Magnesium Lvl (test code = Magnesium 1.8 1.8-2.4 Lvl) [facility]2014-11-09 12:55:00 Test Item Value Reference Range Interpretation Comments Lipase Lvl (test code = Lipase Lvl) 396 73-393 [facility]2014-11-09 12:55:00 Test Item Value Reference Range Interpretation Comments Amylase Lvl (test code = Amylase Lvl) 50 25-115 [facility]2014-11-09 12:55:00 Test Item Value Reference Range Interpretation Comments A/G Ratio (test code = A/G Ratio) 1.2 0.7-1.6 [facility]2014-11-09 12:55:00 Test Item Value Reference Range Interpretation Comments Globulin (test code = Globulin) 3.3 2.0-4.0 [facility]2014-11-09 12:55:00 Test Item Value Reference Range Interpretation Comments AST (test code = AST) 8 See_Comment [Auto mated message] The system which ge nerated this result transmit francine reference range : <=37. The reference range was not used to interpr et this result as angel l/abnormal. [facility]2014-11-09 12:55:00 Test Item Value Reference Range Interpretation Comments Alk Phos (test code = Alk Phos) 61 39-136 [facility]2014-11-09 12:55:00 Test Item Value Reference Range Interpretation Comments ALT (test code = ALT) 16 See_Comment [Auto mated message] The system which ge nerated this result transmit francine reference range : <=65. The reference range was not used to interpr et this result as angel l/abnormal. [facility]2014-11-09 12:55:00 Test Item Value Reference Range Interpretation Comments Calcium Lvl (test code = Calcium Lvl) 9.1 8.5-10.5 [facility]2014-11-09 12:55:00 Test Item Value Reference Range Interpretation Comments B/C Ratio (test code = B/C Ratio) 12 6-25 [facility]2014-11-09 12:55:00 Test Item Value Reference Range Interpretation Comments Total Protein (test code = Total 7.2 6.4-8.4 Protein) [facility]2014-11-09 12:55:00 Test Item Value Reference Range Interpretation Comments AGAP (test code = AGAP) 9.3 10.0-20.0 [facility]2014-11-09 12:55:00 Test Item Value Reference Range Interpretation Comments Albumin Lvl (test code = Albumin Lvl) 3.9 3.5-5.0 [facility]2014-11-09 12:55:00 Test Item Value Reference Range Interpretation Comments Bili Total (test code = Bili Total) 0.9 0.2-1.3 [facility]2014-11-09 12:55:00 Test Item Value Reference Range Interpretation Comments eGFR (test code = eGFR) 79 [facility]2014-11-09 12:55:00 Test Item Value Reference Range Interpretation Comments Glucose Lvl (test code = Glucose Lvl) 106 70-99 [facility]2014-11-09 12:55:00 Test Item Value Reference Range Interpretation Comments BUN (test code = BUN) 11 7-22 [facility]2014-11-09 12:55:00 Test Item Value Reference Range Interpretation Comments Creatinine Lvl (test code = Creatinine 0.9 0.5-1.4 Lvl) [facility]2014-11-09 12:55:00 Test Item Value Reference Range Interpretation Comments Potassium Lvl (test code = Potassium 2.3 3.5-5.1 Lvl) [facility]2014-11-09 12:55:00 Test Item Value Reference Range Interpretation Comments Chloride Lvl (test code = Chloride Lvl) 104 95-109 [facility]2014-11-09 12:55:00 Test Item Value Reference Range Interpretation Comments CO2 (test code = CO2) 27 24-32 [facility]2014-11-09 12:55:00 Test Item Value Reference Range Interpretation Comments Sodium Lvl (test code = Sodium Lvl) 138 135-145 [id number] 12:55:00 Test Item Value Reference Range Interpretation Comments Monocytes # (test code 0.5 See_Comment [Aut omated message] The = Monocytes #) system which generated this result tra nsmitted reference range : <=0.8. The reference r markus was not used to int erpret this result as normal/abnormal . [facility]LbbjoqnXPIIOIKRVA9247-07-60 12:55:00 Test Item Value Reference Range Interpretation Comments Basophils (test code = 0.3 See_Comment [Aut omated message] The Basophils) system which ge nerated this result tra nsmitted reference range : <=1.0. The reference r markus was not used to int erpret this result as normal/abnormal . [facility]JtwdjkrVCFWKOYUIB8416-90-95 12:55:00 Test Item Value Reference Range Interpretation Comments Lymphocytes # (test code = Lymphocytes 2.3 1.0-5.5 #) [id number] 12:55:00 Test Item Value Reference Range Interpretation Comments Segs-Bands # (test code = Segs-Bands #) 7.0 1.5-8.1 [facility]ZdmqasuSXVQKEWZQB3754-53-14 12:55:00 Test Item Value Reference Range Interpretation Comments Eosinophils (test code = 0.3 See_Comment [A utomated message] The Eosinophils) system which ge nerated this result tra nsmitted reference range : <=4.0. The reference r markus was not used to int erpret this result as normal/abnormal . [facility]JmcblurMZOWHZQHND2716-26-96 12:55:00 Test Item Value Reference Range Interpretation Comments Eosinophils # (test code 0.0 See_Comment [A utomated message] The = Eosinophils #) system whic h generated this result tra nsmitted reference range : <=0.5. The reference r markus was not used to int erpret this result as normal/abnormal . [facility]VlozqtdCKUDMYOKZS7906-12-51 12:55:00 Test Item Value Reference Range Interpretation Comments Basophils # (test code 0.0 See_Comment [Aut omated message] The = Basophils #) system which generated this result tra nsmitted reference range : <=0.2. The reference r markus was not used to int erpret this result as normal/abnormal . [facility]BabdenfKRTVRVKGEC1862-47-53 12:55:00 Test Item Value Reference Range Interpretation Comments Monocytes (test code = Monocytes) 4.6 2.0-12.0 [facility]S[id number] 12:55:00 Test Item Value Reference Range Interpretation Comments Lymphocytes (test code = Lymphocytes) 23.4 20.0-40.0 [facility]HgrzzjqLNTBWKMSWR4033-92-87 12:55:00 Test Item Value Reference Range Interpretation Comments Segs (test code = Segs) 71.4 45.0-75.0 [facility]DvwyxluWOTRKODFYF0153-52-44 12:55:00 Test Item Value Reference Range Interpretation Comments INR (test code = INR) 1.08 0.85-1.17 [facility]entonMuldnfoVZPERAZOMI5987-95-54 12:55:00 Test Item Value Reference Range Interpretation Comments PTT (test code = PTT) 28.7 s 22.9-35.8 [facility]entonZgyrinxNZADTASPHL5331-07-76 12:55:00 Test Item Value Reference Range Interpretation Comments PT (test code = PT) 14.0 s 12.0-14.7 [facility]OzjzshuORNLVINJFT3623-18-11 12:55:00 Test Item Value Reference Range Interpretation Comments Hct (test code = Hct) 45.4 36.0-48.0 [facility]MfuxcevYLQDWQUPHI1166-38-44 12:55:00 Test Item Value Reference Range Interpretation Comments MCV (test code = MCV) 94.6 80.0-98.0 [facility]entonUaaduowKETJDLNBJO9688-39-21 12:55:00 Test Item Value Reference Range Interpretation Comments RBC (test code = RBC) 4.80 4.20-5.40 [facility]TqfwljoISXCIPFIRB7413-42-54 12:55:00 Test Item Value Reference Range Interpretation Comments Hgb (test code = Hgb) 15.2 12.0-16.0 [facility]JllijbuWVTNZBZXWQ4007-45-35 12:55:00 Test Item Value Reference Range Interpretation Comments WBC (test code = WBC) 9.9 3.7-10.4 [facility]entonTrngzaoKAKNAOWKJQ0034-55-20 12:55:00 Test Item Value Reference Range Interpretation Comments Platelet (test code = Platelet) 256 133-450 [facility]LqikepnJRZOEHWVPO4009-02-87 12:55:00 Test Item Value Reference Range Interpretation Comments MPV (test code = MPV) 7.5 7.4-10.4 [facility]XfqculbXKQWWDRWSX5651-31-33 12:55:00 Test Item Value Reference Range Interpretation Comments RDW (test code = RDW) 13.7 11.5-14.5 [facility]WrknwdzULPBMHWACX9066-62-84 12:55:00 Test Item Value Reference Range Interpretation Comments MCH (test code = MCH) 31.7 pg 27.0-31.0 [facility]entonWmjfsulZGXGUTQVWC4835-92-89 12:55:00 Test Item Value Reference Range Interpretation Comments MCHC (test code = MCHC) 33.5 32.0-36.0 [facility]HL[facility]052[facility] 12:55:00 Test Item Value Reference Range Interpretation Comments CDC HIV 4th GEN (test Negative (03/09/14 6:55 code = CDC HIV 4th AM) GEN) [facility] AND [id number] 12:55:00 Test Item Value Reference Range Interpretation Comments UA Blood (test code = Negative (03/09/14 6:55 UA Blood) AM) [facility] AND [id number] 12:55:00 Test Item Value Reference Range Interpretation Comments UA Glucose (test code Negative (03/09/14 6:55 = UA Glucose) AM) [facility] AND [id number] 12:55:00 Test Item Value Reference Range Interpretation Comments UA Ketones (test code Negative *NA*(03/09/14 = UA Ketones) 6:55 AM) [facility] AND [id number] 12:55:00 Test Item Value Reference Range Interpretation Comments UA Bili (test code = Negative *NA*(03/09/14 UA Bili) 6:55 AM) [facility] AND [id number] 12:55:00 Test Item Value Reference Range Interpretation Comments UA Leuk Est (test code Large *ABN*(03/09/14 = UA Leuk Est) 6:55 AM) [facility] AND [id number] 12:55:00 Test Item Value Reference Range Interpretation Comments UA Urobilinogen (test code = UA 1.0 0.1-1.0 Urobilinogen) [facility] AND [id number] 12:55:00 Test Item Value Reference Range Interpretation Comments UA Nitrite (test code Negative (03/09/14 6:55 = UA Nitrite) AM) [facility] AND [id number] 12:55:00 Test Item Value Reference Range Interpretation Comments UA Spec Grav (test code = UA Spec 1.015 1 Grav) [facility] AND [id number] 12:55:00 Test Item Value Reference Range Interpretation Comments UA pH (test code = UA pH) 7.5 1 5.0-8.0 [facility] AND [id number] 12:55:00 Test Item Value Reference Range Interpretation Comments UA Protein (test code Negative (03/09/14 6:55 = UA Protein) AM) [facility] AND [id number] 12:55:00 Test Item Value Reference Range Interpretation Comments UA Turbidity (test code = Clear (03/09/14 6:55 UA Turbidity) AM) [facility] AND [id number] 12:55:00 Test Item Value Reference Range Interpretation Comments UA Color (test code = Yellow *NA*(03/09/14 UA Color) 6:55 AM) [facility] AND [id number] 12:55:00 Test Item Value Reference Range Interpretation Comments UA WBC (test code = UA WBC) 21-50 /HPF [facility] AND [id number] 12:55:00 Test Item Value Reference Range Interpretation Comments UA Sq Epi (test code = UA Sq Moderate /LPF Epi) [facility] AND [id number] 12:55:00 Test Item Value Reference Range Interpretation Comments UA Mucus (test code = UA Mucus) Few /LPF [facility] AND [id number] 12:55:00 Test Item Value Reference Range Interpretation Comments UA Amorph Priti (test code = UA Few /HPF Amorph Priti) [facility] AND [id number] 12:55:00 Test Item Value Reference Range Interpretation Comments UA RBC (test code = 3-5 /HPF See_Comment [Automa francine message] The UA RBC) system which ge nerated this result tra nsmitted reference range : <=2. The reference range was not used to interpr et this result as angel l/abnormal. [facility] AND [id number] 12:55:00 Test Item Value Reference Range Interpretation Comments UA Bacteria (test code = UA Moderate /HPF Bacteria) [facility]JDGSBKTORNC6070-[facility] 16:00:00 Test Item Value Reference Range Interpretation Comments Potassium Lvl (test code = Potassium 2.9 3.5-5.1 Lvl) [facility]UkqfiqvYKVXOQHNSZST2174-73-75 16:00:00 Test Item Value Reference Range Interpretation Comments Creatinine Lvl (test code = Creatinine 0.9 0.5-1.4 Lvl) [facility] HospitalDkaryjlUKEUSFWIUNNY9346-38-23 16:00:00 Test Item Value Reference Range Interpretation Comments Sodium Lvl (test code = Sodium Lvl) 143 135-145 [facility] HospitalCdxwpxhXRVLMFYNBMZH7722-62-48 16:00:00 Test Item Value Reference Range Interpretation Comments BUN (test code = BUN) 11 7-22 [facility] HospitalGzuqtgsAALTZWPCQJDV3228-32-61 16:00:00 Test Item Value Reference Range Interpretation Comments Glucose Lvl (test code = Glucose Lvl) 89 70-99 [facility] HospitalIbnqmdhEOFMCJYZYQEH6573-61-91 16:00:00 Test Item Value Reference Range Interpretation Comments AST (test code = AST) 13 See_Comment [Auto mated message] The system which ge nerated this result transmit francine reference range : <=37. The reference range was not used to interpr et this result as angel l/abnormal. [facility] HospitalOhvbqofTZGKPUULHNWJ6153-83-72 16:00:00 Test Item Value Reference Range Interpretation Comments Alk Phos (test code = Alk Phos) 76 39-136 [facility] HospitalAkrmaueRBOKNFAPBPES9436-85-51 16:00:00 Test Item Value Reference Range Interpretation Comments Bili Total (test code = Bili Total) 0.4 0.2-1.3 [facility] HospitalHjsbzsaYZCHPIJUJBEE4344-29-10 16:00:00 Test Item Value Reference Range Interpretation Comments Globulin (test code = Globulin) 2.9 2.0-4.0 [facility] HospitalYdlghmlNPWQQXZDLQME9141-48-96 16:00:00 Test Item Value Reference Range Interpretation Comments A/G Ratio (test code = A/G Ratio) 1.2 0.7-1.6 [facility] HospitalNjrpurrKMFHKXMFTACC1826-04-86 16:00:00 Test Item Value Reference Range Interpretation Comments ALT (test code = ALT) 16 See_Comment [Auto mated message] The system which ge nerated this result transmit francine reference range : <=65. The reference range was not used to interpr et this result as angel l/abnormal. [facility] HospitalUpsccueWFQVHUUZFATG2179-06-49 16:00:00 Test Item Value Reference Range Interpretation Comments B/C Ratio (test code = B/C Ratio) 12 6-25 [facility] HospitalUxobgkqTMJFRKNGVYBM6246-05-44 16:00:00 Test Item Value Reference Range Interpretation Comments Albumin Lvl (test code = Albumin Lvl) 3.6 3.5-5.0 [facility] HospitalVfhbwcgYBBCQBMEYBCG2122-76-33 16:00:00 Test Item Value Reference Range Interpretation Comments Total Protein (test code = Total 6.5 6.4-8.4 Protein) [facility] HospitalYifqcqyFLCTHXTCNIQI7015-30-69 16:00:00 Test Item Value Reference Range Interpretation Comments CO2 (test code = CO2) 20 24-32 [facility] HospitalQjdpkeqJBYNIQRDVYHW2129-03-16 16:00:00 Test Item Value Reference Range Interpretation Comments Chloride Lvl (test code = Chloride Lvl) 109 95-109 [facility] HospitalHbvumovNPYBJXPHFPXZ0071-32-42 16:00:00 Test Item Value Reference Range Interpretation Comments AGAP (test code = AGAP) 16.9 10.0-20.0 [facility] HospitalVjrckeoUQZIWBDTRKAT3240-87-05 16:00:00 Test Item Value Reference Range Interpretation Comments Calcium Lvl (test code = Calcium Lvl) 8.6 8.5-10.5 [facility] HospitalVcbtkdqXWAGYKUAAKPA3915-57-94 16:00:00 Test Item Value Reference Range Interpretation Comments eGFR (test code = eGFR) 79 [facility]MgemfzmESWINLCEDZ3186-19-69 16:00:00 Test Item Value Reference Range Interpretation Comments RBC (test code = RBC) 4.29 4.20-5.40 [facility]PcwfsddCFQTZGHSMS6203-89-96 16:00:00 Test Item Value Reference Range Interpretation Comments MPV (test code = MPV) 6.7 7.4-10.4 [facility]BhzlodoEFJCBIZCHI6964-56-15 16:00:00 Test Item Value Reference Range Interpretation Comments Platelet (test code = Platelet) 337 133-450 [facility]BcbrcrqAGCLRVLEEO8702-55-10 16:00:00 Test Item Value Reference Range Interpretation Comments RDW (test code = RDW) 14.6 11.5-14.5 [facility]entonLklbhnsWVJSTAQHDV2735-31-27 16:00:00 Test Item Value Reference Range Interpretation Comments MCHC (test code = MCHC) 33.9 32.0-36.0 [facility]KbcijqcRBFKIIKJNF9681-63-75 16:00:00 Test Item Value Reference Range Interpretation Comments MCH (test code = MCH) 31.1 pg 27.0-31.0 [facility]SwcswedGNRXRTLRNK2942-81-33 16:00:00 Test Item Value Reference Range Interpretation Comments MCV (test code = MCV) 91.6 80.0-98.0 [facility]entonFqgktfcTGCNIJWJWA3837-31-62 16:00:00 Test Item Value Reference Range Interpretation Comments Hct (test code = Hct) 39.3 36.0-48.0 [facility]YcpmkvqAXMULPMPCK4175-80-87 16:00:00 Test Item Value Reference Range Interpretation Comments Hgb (test code = Hgb) 13.4 12.0-16.0 [facility]entonDkmzqysJEMFFDNHXX5418-41-71 16:00:00 Test Item Value Reference Range Interpretation Comments WBC (test code = WBC) 13.4 3.7-10.4 [facility]entonVbgylviWKDMQJBEPQ3270-07-91 16:00:00 Test Item Value Reference Range Interpretation Comments Basophils # (test code 0.0 See_Comment [Aut omated message] The = Basophils #) system which generated this result tra nsmitted reference range : <=0.2. The reference r markus was not used to int erpret this result as normal/abnormal . [facility]entonGwfdxonODNMQDAOWJ2456-79-00 16:00:00 Test Item Value Reference Range Interpretation Comments Eosinophils # (test code 0.0 See_Comment [A utomated message] The = Eosinophils #) system whic h generated this result tra nsmitted reference range : <=0.5. The reference r markus was not used to int erpret this result as normal/abnormal . [facility]entonFztzdgsVKWVXGPDTI4044-38-44 16:00:00 Test Item Value Reference Range Interpretation Comments Monocytes # (test code 0.6 See_Comment [Aut omated message] The = Monocytes #) system which generated this result tra nsmitted reference range : <=0.8. The reference r markus was not used to int erpret this result as normal/abnormal . [facility]entonRebzcffKKPSWRPTCD6229-64-90 16:00:00 Test Item Value Reference Range Interpretation Comments Segs-Bands # (test code = Segs-Bands #) 10.1 1.5-8.1 [facility]entonWfsllmkHPUOIYBJVV1459-14-79 16:00:00 Test Item Value Reference Range Interpretation Comments Lymphocytes # (test code = Lymphocytes 2.7 1.0-5.5 #) [facility]DwfjileXEGRDBXDDM5786-30-37 16:00:00 Test Item Value Reference Range Interpretation Comments Monocytes (test code = Monocytes) 4.4 2.0-12.0 [facility]entonKmjtinqWNMGFUSRXS9070-76-72 16:00:00 Test Item Value Reference Range Interpretation Comments Lymphocytes (test code = Lymphocytes) 20.1 20.0-40.0 [facility]entonUdqosopSHEVQQJBQJ6014-65-13 16:00:00 Test Item Value Reference Range Interpretation Comments Segs (test code = Segs) 74.9 45.0-75.0 [facility]entonKcrvqkhBJGNKBFPOV3869-66-43 16:00:00 Test Item Value Reference Range Interpretation Comments Eosinophils (test code = 0.3 See_Comment [A utomated message] The Eosinophils) system which ge nerated this result tra nsmitted reference range : <=4.0. The reference r markus was not used to int erpret this result as normal/abnormal . [facility]entonQyyltkgBVMJRXMQFQ2075-75-81 16:00:00 Test Item Value Reference Range Interpretation Comments Basophils (test code = 0.3 See_Comment [Aut omated message] The Basophils) system which ge nerated this result tra nsmitted reference range : <=1.0. The reference r markus was not used to int erpret this result as normal/abnormal . [facility]vmlnvoOIRWHKUBGN5203-29-36 16:00:00 Test Item Value Reference Range Interpretation Comments Salicylate Lvl (test 6.2 See_Comment [Autom ated message] The code = Salicylate Lvl) syste m which generated this result tra nsmitted reference range : <=30.0. The reference r markus was not used to int erpret this result as normal/abnormal . [facility] TylerCymfvntXUDVRKZZHR0843-83-38 16:00:00 Test Item Value Reference Range Interpretation Comments Acetaminoph Lvl (test code = 9 10-20 Acetaminoph Lvl) [facility] TylerHadhjzqKXGCUPTXRV6313-00-77 16:00:00 Test Item Value Reference Range Interpretation Comments Ethanol Lvl (test code = Ethanol Lvl) no gt [facility] TylerHplhwzcZCSTCRSYCB0584-12-37 16:00:00 Test Item Value Reference Range Interpretation Comments Etoh (%) (test code = Etoh (%)) no gt [facility] [id number] 15:30:41 Test Item Value Reference Range Interpretation Comments U Cocaine Scr (test Positive *ABN*(01/14/14 code = U Cocaine Scr) 10:30 AM) [facility] [id number] 15:30:41 Test Item Value Reference Range Interpretation Comments U Benzodia Scr (test Negative *NA*(01/14/14 code = U Benzodia Scr) 10:30 AM) [facility] [id number] 15:30:41 Test Item Value Reference Range Interpretation Comments U Lzizy Scr (test code Negative *NA*(01/14/14 = U Lizzy Scr) 10:30 AM) [facility] [id number] 15:30:41 Test Item Value Reference Range Interpretation Comments U Amph Scr (test code Positive *ABN*(01/14/14 = U Amph Scr) 10:30 AM) [facility] [id number] 15:30:41 Test Item Value Reference Range Interpretation Comments UDS Note (test code = See Note 4(01/14/14 UDS Note) 10:30 AM) [facility] [id number] 15:30:41 Test Item Value Reference Range Interpretation Comments U Phencyc Scr (test Negative *NA*(01/14/14 code = U Phencyc Scr) 10:30 AM) [facility] [id number] 15:30:41 Test Item Value Reference Range Interpretation Comments U Cannab Scr (test Negative *NA*(01/14/14 code = U Cannab Scr) 10:30 AM) [facility] [id number] 15:30:41 Test Item Value Reference Range Interpretation Comments U Opiate Scr (test Positive *ABN*(01/14/14 code = U Opiate Scr) 10:30 AM) [facility] [id number] 15:30:00 Test Item Value Reference Range Interpretation Comments UA Urobilinogen (test code = UA 0.2 0.1-1.0 Urobilinogen) [facility] [id number] 15:30:00 Test Item Value Reference Range Interpretation Comments UA Nitrite (test code Negative (01/14/14 10:30 = UA Nitrite) AM) [facility] [id number] 15:30:00 Test Item Value Reference Range Interpretation Comments UA Leuk Est (test Moderate *ABN*(01/14/14 code = UA Leuk Est) 10:30 AM) [facility] [id number] 15:30:00 Test Item Value Reference Range Interpretation Comments UA Sq Epi (test code = UA Sq Epi) Rare /LPF [facility] [id number] 15:30:00 Test Item Value Reference Range Interpretation Comments UA RBC (test code = 0-2 /HPF See_Comment [Automa francine message] The UA RBC) system which ge nerated this result tra nsmitted reference range : <=2. The reference range was not used to interpr et this result as angel l/abnormal. [facility] [id number] 15:30:00 Test Item Value Reference Range Interpretation Comments UA WBC (test code = UA Packed *ABN*(01/14/14 WBC) 10:30 AM) [facility] [id number] 15:30:00 Test Item Value Reference Range Interpretation Comments UA Bacteria (test code = UA Occasional /HPF Bacteria) [facility] [id number] 15:30:00 Test Item Value Reference Range Interpretation Comments UA Bili (test code = Moderate *ABN*(01/14/14 UA Bili) 10:30 AM) [facility] [id number] 15:30:00 Test Item Value Reference Range Interpretation Comments UA Ketones (test code = UA >=80 mg/dL Ketones) [facility] [id number] 15:30:00 Test Item Value Reference Range Interpretation Comments UA Blood (test code = Trace *ABN*(01/14/14 UA Blood) 10:30 AM) [facility] [id number] 15:30:00 Test Item Value Reference Range Interpretation Comments UA Color (test code = Yellow *NA*(01/14/14 UA Color) 10:30 AM) [facility] [id number] 15:30:00 Test Item Value Reference Range Interpretation Comments UA pH (test code = UA pH) 6.0 1 5.0-8.0 [facility] [id number] 15:30:00 Test Item Value Reference Range Interpretation Comments UA Spec Grav (test >=1.030 *ABN*(01/14/14 code = UA Spec Grav) 10:30 AM) [facility] [id number] 15:30:00 Test Item Value Reference Range Interpretation Comments UA Turbidity (test code Slight Cloudy = UA Turbidity) (01/14/14 10:30 AM) [facility] [id number] 15:30:00 Test Item Value Reference Range Interpretation Comments UA Glucose (test code Negative (01/14/14 10:30 = UA Glucose) AM) [facility] [id number] 15:30:00 Test Item Value Reference Range Interpretation Comments UA Protein (test code = Trace *ABN*(01/14/14 UA Protein) 10:30 AM) [facility] [id number] 15:30:00 Test Item Value Reference Range Interpretation Comments U Preg (test code = U Negative (01/14/14 10:30 Preg) AM) [facility] [id number] 04:50:00 Test Item Value Reference Range Interpretation Comments Lipase Lvl (test code = Lipase Lvl) 101 73-393 [facility]2014-09-16 04:50:00 Test Item Value Reference Range Interpretation Comments Amylase Lvl (test code = Amylase Lvl) 23 25-115 [facility]2014-09-16 04:50:00 Test Item Value Reference Range Interpretation Comments Alk Phos (test code = Alk Phos) 69 39-136 [facility]2014-09-16 04:50:00 Test Item Value Reference Range Interpretation Comments Bili Total (test code = Bili Total) 0.5 0.2-1.3 [facility]2014-09-16 04:50:00 Test Item Value Reference Range Interpretation Comments AST (test code = AST) 14 See_Comment [Auto mated message] The system which ge nerated this result transmit francine reference range : <=37. The reference range was not used to interpr et this result as angel l/abnormal. [facility]2014-09-16 04:50:00 Test Item Value Reference Range Interpretation Comments Potassium Lvl (test code = Potassium 2.9 3.5-5.1 Lvl) [facility]2014-09-16 04:50:00 Test Item Value Reference Range Interpretation Comments Chloride Lvl (test code = Chloride Lvl) 109 95-109 [facility]2014-09-16 04:50:00 Test Item Value Reference Range Interpretation Comments AGAP (test code = AGAP) 19.9 10.0-20.0 [facility]2014-09-16 04:50:00 Test Item Value Reference Range Interpretation Comments Calcium Lvl (test code = Calcium Lvl) 8.4 8.5-10.5 [facility]2014-09-16 04:50:00 Test Item Value Reference Range Interpretation Comments Total Protein (test code = Total 6.0 6.4-8.4 Protein) [facility]2014-09-16 04:50:00 Test Item Value Reference Range Interpretation Comments Albumin Lvl (test code = Albumin Lvl) 3.3 3.5-5.0 [facility]2014-09-16 04:50:00 Test Item Value Reference Range Interpretation Comments CO2 (test code = CO2) 18 24-32 [facility]2014-09-16 04:50:00 Test Item Value Reference Range Interpretation Comments B/C Ratio (test code = B/C Ratio) 21 6-25 [facility]2014-09-16 04:50:00 Test Item Value Reference Range Interpretation Comments Creatinine Lvl (test code = Creatinine 0.7 0.5-1.4 Lvl) [facility]2014-09-16 04:50:00 Test Item Value Reference Range Interpretation Comments Sodium Lvl (test code = Sodium Lvl) 144 135-145 [facility]2014-09-16 04:50:00 Test Item Value Reference Range Interpretation Comments BUN (test code = BUN) 15 7-22 [facility]2014-09-16 04:50:00 Test Item Value Reference Range Interpretation Comments Glucose Lvl (test code = Glucose Lvl) 95 70-99 [facility]2014-09-16 04:50:00 Test Item Value Reference Range Interpretation Comments ALT (test code = ALT) 14 See_Comment [Auto mated message] The system which ge nerated this result transmit francine reference range : <=65. The reference range was not used to interpr et this result as angel l/abnormal. [facility]2014-09-16 04:50:00 Test Item Value Reference Range Interpretation Comments eGFR (test code = eGFR) 107 [facility]2014-09-16 04:50:00 Test Item Value Reference Range Interpretation Comments A/G Ratio (test code = A/G Ratio) 1.2 0.7-1.6 [facility]2014-09-16 04:50:00 Test Item Value Reference Range Interpretation Comments Globulin (test code = Globulin) 2.7 2.0-4.0 [id number] 03:50:00 Test Item Value Reference Range Interpretation Comments Segs-Bands # (test code = Segs-Bands #) 7.8 1.5-8.1 [facility]NmguvvrSSIMUXNFYB0537-87-40 03:50:00 Test Item Value Reference Range Interpretation Comments Lymphocytes # (test code = Lymphocytes 2.4 1.0-5.5 #) [facility]PllepkcMMLJNVEXFJ5696-60-92 03:50:00 Test Item Value Reference Range Interpretation Comments Monocytes (test code = Monocytes) 4.6 2.0-12.0 [facility]RphjjwfLEESZTKWDF3390-57-55 03:50:00 Test Item Value Reference Range Interpretation Comments Monocytes # (test code 0.5 See_Comment [Aut omated message] The = Monocytes #) system which generated this result tra nsmitted reference range : <=0.8. The reference r markus was not used to int erpret this result as normal/abnormal . [facility]ZfvxdocDKACQQTKAB7078-83-97 03:50:00 Test Item Value Reference Range Interpretation Comments Lymphocytes (test code = Lymphocytes) 22.4 20.0-40.0 [facility]MqmigwkLWFWBNJZXR4223-86-71 03:50:00 Test Item Value Reference Range Interpretation Comments Basophils # (test code 0.0 See_Comment [Aut omated message] The = Basophils #) system which generated this result tra nsmitted reference range : <=0.2. The reference r markus was not used to int erpret this result as normal/abnormal . [facility]MyrbgrkBZZWNFZYSN9418-12-10 03:50:00 Test Item Value Reference Range Interpretation Comments Eosinophils # (test code 0.1 See_Comment [A utomated message] The = Eosinophils #) system whic h generated this result tra nsmitted reference range : <=0.5. The reference r markus was not used to int erpret this result as normal/abnormal . [id number] 03:50:00 Test Item Value Reference Range Interpretation Comments Eosinophils (test code = 0.6 See_Comment [A utomated message] The Eosinophils) system which ge nerated this result tra nsmitted reference range : <=4.0. The reference r markus was not used to int erpret this result as normal/abnormal . [facility]JdyrakvKPEWJJMRXZ0373-35-54 03:50:00 Test Item Value Reference Range Interpretation Comments Basophils (test code = 0.3 See_Comment [Aut omated message] The Basophils) system which ge nerated this result tra nsmitted reference range : <=1.0. The reference r markus was not used to int erpret this result as normal/abnormal . [facility]ZtvnwsaHCOEMKGEHE5625-92-28 03:50:00 Test Item Value Reference Range Interpretation Comments Segs (test code = Segs) 72.1 45.0-75.0 [id number] 03:50:00 Test Item Value Reference Range Interpretation Comments MPV (test code = MPV) 7.0 7.4-10.4 [id number] 03:50:00 Test Item Value Reference Range Interpretation Comments Platelet (test code = Platelet) 407 133-450 [facility]RlmkfbcOOGLLVOQRJ0455-13-90 03:50:00 Test Item Value Reference Range Interpretation Comments RDW (test code = RDW) 14.8 11.5-14.5 [facility]LicmlqtIAUYXLNBSX1661-09-91 03:50:00 Test Item Value Reference Range Interpretation Comments MCHC (test code = MCHC) 33.5 32.0-36.0 [facility]KvdtvdkNFQSPJGHEE3920-75-80 03:50:00 Test Item Value Reference Range Interpretation Comments MCH (test code = MCH) 30.7 pg 27.0-31.0 [id number] 03:50:00 Test Item Value Reference Range Interpretation Comments Hct (test code = Hct) 41.5 36.0-48.0 [facility]QjpunxxUBHCAINTNE1058-81-06 03:50:00 Test Item Value Reference Range Interpretation Comments RBC (test code = RBC) 4.53 4.20-5.40 [facility]DwmqlfoIZSTOYRUVY9800-44-18 03:50:00 Test Item Value Reference Range Interpretation Comments Hgb (test code = Hgb) 13.9 12.0-16.0 [id number] 03:50:00 Test Item Value Reference Range Interpretation Comments WBC (test code = WBC) 10.8 3.7-10.4 [facility]OzvwdjgZYWKWNAXHW9116-19-25 03:50:00 Test Item Value Reference Range Interpretation Comments MCV (test code = MCV) 91.6 80.0-98.0 [facility]38[facility]82-84 15:05:54 Test Item Value Reference Range Interpretation Comments TSH (test code = TSH) 0.44 [facility]bh77[facility]-92-27 16:10:03 Test Item Value Reference Range Interpretation Comments PAP SMEAR (test code = PAP SMEAR) Normal [facility] HospitalEubdnydWhszhaipy6485-64-22 16:10:03 Test Item Value Reference Range Interpretation Comments PAP SMEAR (test code = PAP SMEAR) Normal [facility]
[2022-01-04] MEDS ORDERED: FAMOTIDINE 20 MG/2 ML VIAL IV ONE (02:35)
[2022-01-04] MEDS ORDERED: NA CHLORIDE 0.9% 2,000 ML ONE (02:35)
[2022-01-04] MEDS ORDERED: HYDROMORPHONE HCL 1 MG/ML INJ ONE ×4 (02:35→12:06)
[2022-01-04] MEDS ORDERED: ONDANSETRON 4 MG/2 ML VIAL ONE ×2 (02:35→06:26)
[2022-01-04 04:20] LABS: Absolute Lymphocytes (CBC) 1.3 K/uL (0.7-4.9); Lymphocytes % 22.7 % (15.3-44.8); MCV 91.9 fL (80-100); MPV 6.5 fL (7.6-11.3); RBC Red Blood Cell Count 4.14 M/uL (3.86-4.86)
[2022-01-04 04:29] LABS: Albumin 3.1 g/dL (3.4-5.0); Bilirubin Total 0.2 mg/dL (0.2-1.0); Potassium 3.7 mmol/L (3.5-5.1); Protein, Total 5.8 g/dL (6.4-8.2)
--- NOTE | 2022-01-04 05:39 | ER ---
Nurse's Notes [facility] Name: Angela Rodriguez Age: 51 yrs Sex: Female : 1970 Arrival Date: 01/04/2022 Time: 02:03 Bed 5 Private MD: Diagnosis: Crohn's disease, unspecified, without complications;Other intestinal obstruction Presentation: 01/04 02:14 Chief complaint: Patient states: my stomach hurts so much, it feels like my previous aa9 small bowel obstruction. Coronavirus screen: Vaccine status: Patient reports receiving the 2nd dose of the covid vaccine. Ebola Screen: No symptoms or risks identified at this time. Initial Sepsis Screen: Does the patient meet any 2 criteria? No. Patient's initial sepsis screen is negative. Does the patient have a suspected source of infection? No. Patient's initial sepsis screen is negative. Risk Assessment: Do you want to hurt yourself or someone else? Patient reports no desire to harm self or others. Onset of symptoms was January 04, 2022. 02:14 Method Of Arrival: Wheelchair aa9 02:14 Acuity: LIZZY 3 aa9 Triage Assessment: 02:18 General: Appears distressed, Behavior is cooperative, agitated, moaning in aa9 position. Pain: Complains of pain in abdomen Pain does not radiate. Pain currently is 10 out of 10 on a pain scale. Pain began suddenly. GI: Abdomen is flat. Historical: - Allergies: 02:17 Ciprofloxacin; aa9 02:17 Phenergan; aa9 - Home Meds: 02:17 buspirone 10 mg Oral tab 1 tab 3 times per day [Active]; ferrous sulfate 325 mg (65 mg aa9 iron) Oral TbEC 325 mg twice a day [Active]; estradiol 1 mg Oral tab 1 tab once daily [Active]; montelukast 10 mg Oral tab 1 tab once daily [Active]; pantoprazole 40 mg Oral grps 1 packet 2 times per day [Active]; cholecalciferol (vitamin D3) 50 mcg (2,000 unit) Oral cap daily [Active]; Cholestyramine Light 4 gram Oral powd 1 scoop daily [Active]; clonazepam 1 mg Oral tab 1 tab 3 times per day [Active]; fluconazole 150 mg Oral tab 1 tab [Active]; - PMHx: 02:17 adrenal insufficiency; avascular necrosis; Bipolar disorder; Chronic pain; Crohn's; aa9 Endometrosis; Hypothyroidism; - PSHx: 02:17 bowel resection; section; Cholecystectomy; Total abdominal hysterectomy; knee; aa9 wrist; - Immunization history:: Client reports receiving the 2nd dose of the Covid vaccine. - Social history:: Smoking status: Patient denies any tobacco usage or history of. - Family history:: not pertinent. Screenin:19 Abuse screen: Denies threats or abuse. Denies injuries from another. Nutritional aa9 screening: No deficits noted. Tuberculosis screening: No symptoms or risk factors identified. Fall Risk None identified. Assessment: 02:19 GI: Abd is soft Abdomen is tender to palpation. aa9 02:45 General: SpO2 80% RA. placed pt on 2 lpm [place] O2. as6 03:07 General: Appears distressed, Behavior is crying. aa9 07:00 Reassessment: RECD REPORT FROM ALEXA HARE. 51YO WF P/W ABDOMINAL PAIN, ADMIT FOR SBO. bp Vital Signs: 02:08 BP 114 / 67; Pulse 82; Resp 16 S; Pulse Ox 92% on R/A; aa9 02:14 BP 114 / 87; Pulse 76; Resp 17 S; Temp 97.9(O); Pulse Ox 99% on R/A; Weight 72.57 kg aa9 (R); Height 5 ft. 2 in. (157.48 cm) (R); Pain 10/10; 02:15 BP 122 / 75; Pulse 64; Resp 18 S; Pulse Ox 93% on R/A; aa9 03:00 BP 115 / 98; Pulse 74; Resp 18 S; Pulse Ox 96% on 2 lpm NC; aa9 04:15 BP 136 / 91; Pulse 75; Resp 18 S; Pulse Ox 96% on 2 lpm NC; aa9 06:35 BP 125 / 88; Pulse 80; Resp 18 S; Pulse Ox 96% on 2 lpm NC; aa9 02:14 Body Mass Index 29.26 (72.57 kg, 157.48 cm) aa9 ED Course: 02:03 Patient arrived in ED. ja2 02:11 Jorge Alberto Cooley MD is Attending Physician. [facility] 02:16 Triage completed. aa9 02:19 Arm band placed on. aa9 02:19 Patient has correct armband on for positive identification. Bed in low position. aa9 02:23 Ashley Baez, RN is Primary Nurse. aa9 03:00 Inserted saline lock: 18 gauge in right EJ, using aseptic technique. as6 04:58 CT Abd/Pelvis - IV Contrast Only In Process Unspecified. EDMS 05:36 Yair Black is Hospitalizing Provider. [facility] 08:06 No provider procedures requiring assistance completed. Patient admitted, IV remains in bp place. Administered Medications: 03:05 Drug: NS 0.9% 1000 ml {Note: R EJ.} Route: IV; Rate: 1 bolus; Site: Other; aa9 06:31 Follow up: Response: No adverse reaction; IV Status: Completed infusion; IV Intake: aa9 1000ml 03:06 Drug: NS 0.9% 1000 ml Route: IV; Rate: 1 bolus; Site: right jugular; aa9 06:31 Follow up: Response: No adverse reaction; IV Status: Completed infusion; IV Intake: aa9 1000ml 03:06 Drug: Pepcid (famotidine) 20 mg Route: IVP; Site: right jugular; aa9 06:31 Follow up: Response: No adverse reaction aa9 03:06 Drug: Zofran (Ondansetron) 4 mg Route: IVP; Site: right jugular; aa9 06:30 Follow up: Response: No adverse reaction aa9 04:00 Drug: Dilaudid (HYDROmorphone) 1 mg Route: IVP; Site: left jugular; aa9 06:30 Follow up: Response: No adverse reaction; RASS: Alert and Calm (0) aa9 06:29 Drug: Rocephin (cefTRIAXone) 1 grams Route: IV; Rate: per protocol; Site: right jugular;aa9 06:30 Follow up: Response: No adverse reaction; IV Status: Completed infusion; IV Intake: 35qwfv0 06:30 Drug: Flagyl (metroNIDAZOLE) 500 mg Volume: 100 ml; Route: IVPB; Rate: 200 ml/hr; aa9 Infused Over: 30 mins; Site: right jugular; 06:30 Drug: Dilaudid (HYDROmorphone) 1 mg Route: IVP; Site: right jugular; aa9 06:31 Follow up: Response: No adverse reaction; RASS: Alert and Calm (0) aa9 06:30 Drug: Zofran (Ondansetron) 4 mg Route: IVP; Site: right jugular; aa9 06:31 Follow up: Response: No adverse reaction aa9 07:10 Drug: Solu-CORTEF (hyrdoCORTISONE) 100 mg Route: IVP; Site: right jugular; aa9 07:10 Drug: Valium (diazepam) 2 mg Route: IVP; Site: right jugular; aa9 07:33 Drug: Dilaudid (HYDROmorphone) 1 mg Route: IVP; Site: right jugular; bp 07:33 Drug: Valium (diazepam) 2 mg Route: IVP; Site: right jugular; bp Intake: 06:30 IV: 10ml; Total: 10ml. aa9 06:31 IV: 1000ml; Total: 1010ml. aa9 06:31 IV: 1000ml; Total: 2010ml. aa9 Outcome: 05:39 Decision to Hospitalize by Provider. no 08:06 Admitted to ER Hold. Please see [facility] for further documentation. bp 08:06 Condition: stable 08:06 Instructed on the need for admit. 17:14 Patient left the ED. bp Signatures: Dispatcher [employer] EDMS Jorge Alberto Cooley MD MD cha Peltier, Brian, ANANYA RN Araceli Do Ashby, RN RN as6 Ashley Baez, ANANYA RN aa9 Corrections: (The following items were deleted from the chart) 06:39 03:00 BP 115 / 98; Pulse 74bpm; Resp 18bpm; Spontaneous; Pulse Ox 94% 2 lpm Nasal aa9 Cannula; aa9 06:39 02:15 BP 122 / 75; Pulse 64bpm; Resp 18bpm; Spontaneous; Pulse Ox 95% 2 lpm Nasal aa9 Cannula; aa9 06:39 02:08 BP 114 / 67; Pulse 82bpm; Resp 16bpm; Spontaneous; Pulse Ox 96% 2 lpm Nasal aa9 Cannula; aa9
--- NOTE | 2022-01-04 05:39 | EDPHYS ---
Physician Documentation [facility] Name: Angela Rodriguez Age: 51 yrs Sex: Female : 1970 Arrival Date: 01/04/2022 Time: 02:03 Bed 5 Private MD: Jorge Alberto Toussaint HPI: 01/04 02:18 This 51 yrs old Female presents to ER via Wheelchair with complaints of no Abdominal Pain. 02:18 The patient presents with abdominal pain abdominal distention in the upper abdomen, in no the lower abdomen. Onset: The symptoms/episode began/occurred just prior to arrival. The patient presents to the emergency department with nausea, vomiting, that is intermittent. Onset: The symptoms/episode began/occurred 1 day(s) ago. Possible causes: unknown. The symptoms are aggravated by nothing. The symptoms are alleviated by. Associated signs and symptoms: The patient has no apparent associated signs or symptoms. The symptoms do not radiate. Modifying factors: The symptoms are alleviated by nothing, the symptoms are aggravated by nothing. Historical: - Allergies: 02:17 Ciprofloxacin; aa9 02:17 Phenergan; aa9 - Home Meds: 02:17 buspirone 10 mg Oral tab 1 tab 3 times per day [Active]; ferrous sulfate 325 mg (65 mg aa9 iron) Oral TbEC 325 mg twice a day [Active]; estradiol 1 mg Oral tab 1 tab once daily [Active]; montelukast 10 mg Oral tab 1 tab once daily [Active]; pantoprazole 40 mg Oral grps 1 packet 2 times per day [Active]; cholecalciferol (vitamin D3) 50 mcg (2,000 unit) Oral cap daily [Active]; Cholestyramine Light 4 gram Oral powd 1 scoop daily [Active]; clonazepam 1 mg Oral tab 1 tab 3 times per day [Active]; fluconazole 150 mg Oral tab 1 tab [Active]; - PMHx: 02:17 adrenal insufficiency; avascular necrosis; Bipolar disorder; Chronic pain; Crohn's; aa9 Endometrosis; Hypothyroidism; - PSHx: 02:17 bowel resection; section; Cholecystectomy; Total abdominal hysterectomy; knee; aa9 wrist; - Immunization history:: Client reports receiving the 2nd dose of the Covid vaccine. - Social history:: Smoking status: Patient denies any tobacco usage or history of. - Family history:: not pertinent. ROS: 02:18 Constitutional: Negative for fever, chills, and weight loss, Eyes: Negative for injury, no pain, redness, and discharge, ENT: Negative for injury, pain, and discharge, Neck: Negative for injury, pain, and swelling, Cardiovascular: Negative for chest pain, palpitations, and edema, Respiratory: Negative for shortness of breath, cough, wheezing, and pleuritic chest pain, Back: Negative for injury and pain, : Negative for injury, bleeding, discharge, and swelling, MS/Extremity: Negative for injury and deformity, Skin: Negative for injury, rash, and discoloration, Neuro: Negative for headache, weakness, numbness, tingling, and seizure. 02:18 Abdomen/GI: Positive for abdominal pain, nausea and vomiting, abdominal cramps, of the right upper quadrant, left upper quadrant, right lower quadrant and left lower quadrant. Exam: 02:18 Constitutional: This is a well developed, well nourished patient who is awake, alert, no and in no acute distress. Head/Face: Normocephalic, atraumatic. Eyes: Pupils equal round and reactive to light, extra-ocular motions intact. Lids and lashes normal. Conjunctiva and sclera are non-icteric and not injected. Cornea within normal limits. Periorbital areas with no swelling, redness, or edema. ENT: Nares patent. No nasal discharge, no septal abnormalities noted. Tympanic membranes are normal and external auditory canals are clear. Oropharynx with no redness, swelling, or masses, exudates, or evidence of obstruction, uvula midline. Mucous membranes moist. Neck: Trachea midline, no thyromegaly or masses palpated, and no cervical lymphadenopathy. Supple, full range of motion without nuchal rigidity, or vertebral point tenderness. No Meningismus. Chest/axilla: Normal chest wall appearance and motion. Nontender with no deformity. No lesions are appreciated. Cardiovascular: Regular rate and rhythm with a normal S1 and S2. No gallops, murmurs, or rubs. Normal PMI, no JVD. No pulse deficits. Respiratory: Lungs have equal breath sounds bilaterally, clear to auscultation and percussion. No rales, rhonchi or wheezes noted. No increased work of breathing, no retractions or nasal flaring. Back: No spinal tenderness. No costovertebral tenderness. Full range of motion. Skin: Warm, dry with normal turgor. Normal color with no rashes, no lesions, and no evidence of cellulitis. MS/ Extremity: Pulses equal, no cyanosis. Neurovascular intact. Full, normal range of motion. Neuro: Awake and alert, GCS 15, oriented to person, place, time, and situation. Cranial nerves II-XII grossly intact. Motor strength 5/5 in all extremities. Sensory grossly intact. Cerebellar exam normal. Normal gait. Psych: Awake, alert, with orientation to person, place and time. Behavior, mood, and affect are within normal limits. 02:18 Abdomen/GI: Inspection: distension, Bowel sounds: active, Palpation: mild abdominal tenderness, moderate abdominal tenderness, in the left upper quadrant, right lower quadrant, left lower quadrant and abdomen diffusely, Liver: no appreciated palpable abnormalities, Hernia: not appreciated. Vital Signs: 02:08 BP 114 / 67; Pulse 82; Resp 16 S; Pulse Ox 92% on R/A; aa9 02:14 BP 114 / 87; Pulse 76; Resp 17 S; Temp 97.9(O); Pulse Ox 99% on R/A; Weight 72.57 kg aa9 (R); Height 5 ft. 2 in. (157.48 cm) (R); Pain 10/10; 02:15 BP 122 / 75; Pulse 64; Resp 18 S; Pulse Ox 93% on R/A; aa9 03:00 BP 115 / 98; Pulse 74; Resp 18 S; Pulse Ox 96% on 2 lpm NC; aa9 04:15 BP 136 / 91; Pulse 75; Resp 18 S; Pulse Ox 96% on 2 lpm NC; aa9 06:35 BP 125 / 88; Pulse 80; Resp 18 S; Pulse Ox 96% on 2 lpm NC; aa9 02:14 Body Mass Index 29.26 (72.57 kg, 157.48 cm) aa9 MDM: 02:11 Patient medically screened. [facility] 02:22 Differential diagnosis: non-specific abd pain, pancreatitis. Data reviewed: vital no signs, nurses notes, lab test result(s), EKG, radiologic studies, CT scan, plain films. Data interpreted: curb setter: rate is 76 beats/min, rhythm is regular, Pulse oximetry: on room air is 99 %. Counseling: I had a detailed discussion with the patient and/or guardian regarding: the historical points, exam findings, and any diagnostic results supporting the discharge/admit diagnosis, lab results. 01/04 02:18 Order name: CBC with Diff; Complete Time: 04:50 [facility] 01/04 02:18 Order name: CMP; Complete Time: 04:50 [facility] 01/04 02:18 Order name: Lipase; Complete Time: 04:50 [facility] 01/04 02:18 Order name: CT Abd/Pelvis - IV Contrast Only [facility] 01/04 02:18 Order name: SARS RAPID [facility] 01/04 06:59 Order name: Urine Dipstick-Ancillary EDVT 01/04 02:18 Order name: IV Saline Lock; Complete Time: 03:07 [facility] 01/04 02:18 Order name: Labs collected and sent; Complete Time: 03:08 [facility] 01/04 02:18 Order name: Urine Dipstick-Ancillary (obtain specimen); Complete Time: 07:00 [facility] 01/04 02:18 Order name: Urine Test (obtain specimen); Complete Time: 07:00 [facility] 01/04 03:03 Order name: Labs - recollect needed: all labs needed; Complete Time: 03:34 as6 Administered Medications: 03:05 Drug: NS 0.9% 1000 ml {Note: R EJ.} Route: IV; Rate: 1 bolus; Site: Other; aa9 06:31 Follow up: Response: No adverse reaction; IV Status: Completed infusion; IV Intake: aa9 1000ml 03:06 Drug: NS 0.9% 1000 ml Route: IV; Rate: 1 bolus; Site: right jugular; aa9 06:31 Follow up: Response: No adverse reaction; IV Status: Completed infusion; IV Intake: aa9 1000ml 03:06 Drug: Pepcid (famotidine) 20 mg Route: IVP; Site: right jugular; aa9 06:31 Follow up: Response: No adverse reaction aa9 03:06 Drug: Zofran (Ondansetron) 4 mg Route: IVP; Site: right jugular; aa9 06:30 Follow up: Response: No adverse reaction aa9 04:00 Drug: Dilaudid (HYDROmorphone) 1 mg Route: IVP; Site: left jugular; aa9 06:30 Follow up: Response: No adverse reaction; RASS: Alert and Calm (0) aa9 06:29 Drug: Rocephin (cefTRIAXone) 1 grams Route: IV; Rate: per protocol; Site: right jugular;aa9 06:30 Follow up: Response: No adverse reaction; IV Status: Completed infusion; IV Intake: 93pdne7 06:30 Drug: Flagyl (metroNIDAZOLE) 500 mg Volume: 100 ml; Route: IVPB; Rate: 200 ml/hr; aa9 Infused Over: 30 mins; Site: right jugular; 06:30 Drug: Dilaudid (HYDROmorphone) 1 mg Route: IVP; Site: right jugular; aa9 06:31 Follow up: Response: No adverse reaction; RASS: Alert and Calm (0) aa9 06:30 Drug: Zofran (Ondansetron) 4 mg Route: IVP; Site: right jugular; aa9 06:31 Follow up: Response: No adverse reaction aa9 07:10 Drug: Solu-CORTEF (hyrdoCORTISONE) 100 mg Route: IVP; Site: right jugular; aa9 07:10 Drug: Valium (diazepam) 2 mg Route: IVP; Site: right jugular; aa9 07:33 Drug: Dilaudid (HYDROmorphone) 1 mg Route: IVP; Site: right jugular; bp 07:33 Drug: Valium (diazepam) 2 mg Route: IVP; Site: right jugular; bp Disposition Summary: 01/04/22 05:39 Hospitalization Ordered Hospitalization Status: Inpatient Admission no Provider: Yair Black cha Condition: Stable no Problem: new no Symptoms: have improved no Bed/Room Type: Standard no Location: Telemetry/MedSurg (Inpatient)(01/04/22 14:44) em1 Room Assignment: 420(01/04/22 14:44) em1 Diagnosis - Crohn's disease, unspecified, without complications no - Other intestinal obstruction no Forms: - Medication Reconciliation Form no - SBAR form no Signatures: Dispatcher [employer] Jorge Alberto Kong MD MD cha Martinez, Eric em1 Faby Leavitt RN RN cg Peltier, Brian, RN RN bp Slawson, Ashby, RN RN as6 Ashley Baez RN RN aa9 Corrections: (The following items were deleted from the chart) 06:36 05:39 Telemetry/MedSurg (Inpatient) no cg 06:36 05:39 [facility] cg 06:36 [facility] cg em1 [facility]: 06[facility]
--- NOTE | 2022-01-04 05:44 | P.HP ---
Certification for Inpatient Patient admitted to: Inpatient With expected LOS: >2 Midnights Patient will require the following post-hospital care: None Practitioner: I am a practitioner with admitting privileges, knowledge of patient current condition, hospital course, and medical plan of care. Services: Services provided to patient in accordance with Admission requirements found in Title 42 Section 412.3 of the Code of Federal Regulations Patient History Date of Service: 01/04/22 Reason for admission: SBO/Crohns History of Present Illness: Patient is a 51-year-old female with history of Crohn's disease multiple SBOs secondary to adhesions who presented to the ED with complaints of severe abdominal pain that began earlier in the day/ She denied overt episode of nausea, fever, chills. States she has not had a bowel movement today nor has passed any gas. Her labs are unremarkable. CT abdomen pelvis showed " previous bowel resection/anastomosis with mildly dilated small bowel loops, ileus versus early partial small bowel obstruction. Wall thickening in the distal gastric body versus artifact of incomplete distention." She was started on rocephin and flagyl in ED (has cipro allergy) and given dilaudid which improved her pain. She is admitted for further evaluation and treatment. Allergies promethazine [From Phenergan] Allergy (Verified 11/22/17 20:55) Twitching ciprofloxacin Adverse Reaction (Verified 11/22/17 20:55) Itching Home Medications: Alfuzosin HCl [Alfuzosin HCl ER] 10 mg PO DAILY 11/13/21 Aspirin 81 mg PO DAILY 11/13/21 Baclofen 20 mg PO QID 11/13/21 Buspirone HCl [Buspar] 10 mg PO QID 11/13/21 Escitalopram Oxalate 10 mg PO DAILY 11/13/21 Estradiol [Estrace] 1 mg PO DAILY 11/13/21 Gabapentin 600 mg PO QID 11/13/21 Ondansetron [Zofran (Odt)*] 4 mg PO Q4HP PRN 11/13/21 Pantoprazole [Protonix Tab*] 40 mg PO BID 11/13/21 clonazePAM [Clonazepam] 1 mg PO TID 11/13/21 Cefdinir [Omnicef] 300 mg PO BID #14 capsule 11/14/21 Diazepam [Valium] 10 mg PO DAILY PRN #14 tablet 11/14/21 Fluconazole [Diflucan] 200 mg PO DAILY #7 tablet 11/14/21 metroNIDAZOLE [Flagyl] 500 mg PO Q8H #20 tablet 11/14/21 - Past Medical/Surgical History Diabetic: No -: Crohns -: Endometriosis -: Titanium plate on right wrist -: Bowel resection x 2 -: Hysterectomy -: Bilateral knee replacements Psychosocial/ Personal History: Patient lives at home with family. - Family History Family History: Reviewed- Non-Contributory - Social History Smoking Status: Never smoker Alcohol use: No CD- Drugs: No Caffeine use: Yes Place of Residence: Home Review of Systems Gastrointestinal: Abdominal Pain, Distention Physical Examination - Physical Exam General: Alert, In no apparent distress HEENT: Atraumatic, PERRLA, EOMI, Sclerae nonicteric Neck: Supple, 2+ carotid pulse no bruit, No LAD, Without JVD or thyroid abnormality Respiratory: Clear to auscultation bilaterally, Normal air movement Cardiovascular: Regular rate/rhythm, Normal S1 S2 Gastrointestinal: Hypoactive, Distended, Tenderness Musculoskeletal: No tenderness Integumentary: No rashes Neurological: Normal speech, Normal strength at 5/5 x4 extr, Normal tone, Normal affect - Studies Laboratory Data (last 24 hrs) 01/04/22 03:30: Sodium 142, Potassium 3.7, BUN 13, Creatinine 0.78, Glucose 108 H, Total Bilirubin 0.2, AST 17, ALT 25, Alkaline Phosphatase 46, Lipase 103 01/04/22 03:30: WBC 5.90, Hgb 12.8, Hct 38.0, Plt Count 176 Assessment and Plan - Problems (Diagnosis) (1) SBO (small bowel obstruction) Current Visit: Yes Status: Acute (2) Crohns disease Current Visit: Yes Status: Acute Qualifiers: Gastrointestinal tract location: small intestine Digestive disease complication type: with intestinal obstruction Qualified Code(s): K50.012 - Crohn's disease of small intestine with intestinal obstruction - Plan -Continue rocephin and flagyl -NPO for bowel rest. IV fluids -IV pain control with Dilaudid. -General surgery and GI consult -Solu-cortef for Crohns flare -NG tube not indicated at this time as patient has not had any episodes of emesis -Monitor and replete electrolytes per protocol -Reconcile and continue home medications -Lovenox for VTE ppx -Full code Discharge Plan: Home Plan to discharge in: Greater than 2 days - Advance Directives Does patient have a Living Will: No Does patient have a Durable POA for Healthcare: No - Code Status/Comfort Care Code Status Assessed: Yes (Full) Critical Care: No Time Spent Managing Pts Care (In Minutes): 50
[2022-01-04] MEDS ORDERED: HYDROCORTISONE SUC 100 MG INJ ONE (06:26)
[2022-01-04] MEDS ORDERED: CEFTRIAXONE 1000 MG/VIAL ONE (06:26)
[2022-01-04] MEDS ORDERED: METRONIDAZOLE 500mg IVPB 500 MG/100 ML BAG IV ONE (06:26)
[2022-01-04 06:59] LABS: Urine Blood Negative (Negative); Urine Glucose Negative (Negative); Urine Protein Negative (Negative); Urine Specific Gravity 1.015 (1.005-1.030); Urine pH 6.5 (5.0-7.0)
[2022-01-04] MEDS ORDERED: DIAZEPAM 10 MG/2 ML INJ SYRINGE ONE ×2 (07:13→07:37)
[2022-01-04 08:16] VITALS: BMI 29.2
[2022-01-04 10:18] LABS: SARS-CoV-2 Antigen Rapid Res Negative (Negative)
[2022-01-04] MEDS ORDERED: ACETAMINOPHEN 500 MG TAB PO PRN (10:22)
[2022-01-04] MEDS ORDERED: HYDROCORTISONE SUC 100 MG INJ IV SCH (10:22)
[2022-01-04] MEDS: ENOXAPARIN 40 MG/0.4 ML SQ SCH (10:22)
[2022-01-04] MEDS ORDERED: ONDANSETRON 4 MG/2 ML VIAL IV PRN (10:22)
[2022-01-04] MEDS: NA CHLORIDE 0.9% 1,000 ML IV SCH ×2 (10:22→17:33)
[2022-01-04] MEDS: METRONIDAZOLE 500mg IVPB 500 MG/100 ML BAG IV SCH ×2 (10:35→17:35)
[2022-01-04] MEDS: HYDROMORPHONE HCL 1 MG/ML INJ IV PRN ×3 (11:00→21:36)
[2022-01-04] MEDS: CEFTRIAXONE 1,000 MG in NA CHLORIDE 0.9% 50 ML IVPB SCH (11:00)
--- NOTE | 2022-01-04 13:22 | PN ---
Date of Progress Note: 01/04/2022 Subjective: Ms. Rodriguez is a 51-year-old patient known by our service due to history of Crohn disease , history of bowel obstructions. Patient has multiple surgeries in the past in [place]. Her gastroe nterologist doctors in [place] had been trying to control her flare-up of Crohn disease, but last nig ht she had some pain and she decided to come to the ER. She feels better right now, but she states t hat last night it was very intense. She saw her a grade recorder recently where they are working on her medications and also referred to her surgeons in [place]. She was doing some workup done inc luding CAT scans to go to that surgeon and this week, but last night the pain got worse and she came to the ER. At this moment, she has no nausea, no vomiting. She feels a lot better. Review of Systems: No dysuria, hematuria, hematochezia, or melena. Ten points otherwise unremarkable. Allergies: PHENERGAN. Medications: Reviewed including alfuzosin, aspirin, baclofen, BuSpar, clonazepam, Omnicef, Valium, D iflucan, and Flagyl. Medical Problems: Include Crohn disease, endometriosis. Past Surgical History: Include 2 bowel surgeries and bilateral knee replacement, hysterectomy and ti tanium placed in the right wrist. Social History: She does not smoke. She does not drink alcohol. Family History: Noncontributory. Physical Examination: General: Patient is awake, alert, and she states she feels a lot better. HEENT: Pupils are equal and reactive. Anicteric. Neck: Supple. Chest: Clear. Abdomen: Soft and depressible. No guarding or rebound. No peritoneal signs. Extremities: Good capillary refill. Rectal: Deferred. Laboratory Data: Blood work shows a WBC count of 5, with hemoglobin of 12, and platelets of 176. Po tassium 3.7. BUN is 13. CAT scan of the abdomen and pelvis official result still pending. Of note, preliminary shows a mildly dilated small bowel loops. Plan: Obtain official result of the CAT scan. If we see that there is no new findings or any other pathology, we may proceed then with advance to liquid diet, ambulation. HM/MODL Voice ID: [id number] Report ID: [id number]
--- NOTE | 2022-01-04 14:49 | RAD REPORT ---
EXAM DESCRIPTION: CT - Abdomen Pelvis W Contrast - 01/04/2022 6:44 am CLINICAL HISTORY: The patient is 51 years old and is Female; Abdominal pain, acute, nonlocalized TECHNIQUE: Axial computed tomography images of the abdomen and pelvis with intravenous contrast. S agittal and coronal reformatted images were created and reviewed. This CT exam was performed using one or more of the following dose reduction techniques: automated exposure control, adjustment of t he mA and/or kV according to patient size, and/or use of iterative reconstruction technique. COMPARISON: CT abdomen pelvis November 13, 2021. FINDINGS: Lung bases: Unremarkable. No mass. No consolidation. ABDOMEN: Liver: Unremarkable. No mass. Gallbladder and bile ducts: Cholecystectomy with mild biliary dilatation again noted, likely rese rvoir effect. No choledocholithiasis. Pancreas: No findings to suggest acute pancreatitis. No mass visualized. No ductal dilation. Spleen: Unremarkable. No splenomegaly. Adrenals: Unremarkable. No mass. Kidneys and ureters: Bilateral simple renal cysts, largest measuring 3.2 cm on the left. No follo w-up imaging recommended. No hydronephrosis or ureter stone. Stomach and bowel: Previous bowel resection/anastomosis with mildly dilated small bowel loops, il eus versus early partial small bowel obstruction. Wall thickening in the distal gastric body versus artifact of incomplete distention. PELVIS: Appendix: No findings to suggest acute appendicitis. Bladder: Unremarkable. No mass. Reproductive: Hysterectomy. No adnexal mass. ABDOMEN and PELVIS: Intraperitoneal space: Minimal free fluid in the pelvis. No free air. Bones/joints: No acute fracture. No dislocation. Soft tissues: Unremarkable. Vasculature: Unremarkable. No abdominal aortic aneurysm. Lymph nodes: No pathologically enlarged lymph nodes. Tubes, lines and devices: Right lower quadrant anterior abdominal wall delivery device with spina l catheter. It is unchanged compared with the prior exam. IMPRESSION: 1. Previous bowel resection/anastomosis with mildly dilated small bowel loops, ileus v ersus early partial small bowel obstruction. 2. Wall thickening in the distal gastric body versus artifact of incomplete distention. Correlate c linically for gastritis. 3. Cholecystectomy with mild biliary dilatation again noted, likely reservoir effect. No choledocho lithiasis. 4. Additional non-emergent findings as above. Electronically signed by: Pricila Parker MD 01/04/2022 5:15 AM CDT Due to temporary technical issues with the PACS/[employer] reporting system, reports are being signed by the in house radiologists without review as a courtesy to insure prompt reporting. The interpreting radiologist is fully responsible for the content of the report.
--- NOTE | 2022-01-04 17:20 | P.PN ---
Date of Service: 01/04/22 Patient seen and examined. She states that she is passing gas. She states that her abdominal pain persists. Plan: General surgery input appreciated. Continue supportive measures. Continue antibiotics and IV Steroid. GI consulted.
[2022-01-04 18:54] VITALS: O2SAT 96
[2022-01-05 00:03] LABS: Specific Gravity 1.006 (1.005-1.030); Urine Bacteria <20 /HPF (<20); Urine Bilirubin NEGATIVE (Negative); Urine Blood Negative (Negative); Urine Clarity Clear (Clear); Urine Color Light-Yellow (Yellow); Urine Glucose NEGATIVE (Negative); Urine Mucus Slight /HPF (None Seen); Urine Protein NEGATIVE (Negative); Urine Urobilinogen Normal (Normal); Urine pH 6.5 (5.0-7.0)
[2022-01-05] MEDS: DIAZEPAM 5 MG TABLET PO PRN ×2 (00:03→09:18)
[2022-01-05] MEDS: METRONIDAZOLE 500mg IVPB 500 MG/100 ML BAG IV SCH ×2 (00:05→08:39)
[2022-01-05] MEDS: METHYLPREDNISOLONE 40 MG INJ IV SCH ×2 (00:19→08:37)
[2022-01-05] MEDS ORDERED: METHYLPREDNISOLONE 40 MG INJ IV SCH ×2 (01:00→18:00)
[2022-01-05] MEDS: HYDROMORPHONE HCL 1 MG/ML INJ IV PRN ×3 (03:48→13:26)
[2022-01-05] MEDS: NA CHLORIDE 0.9% 1,000 ML IV SCH ×2 (03:48→06:22)
[2022-01-05 05:27] LABS: Absolute Lymphocytes (CBC) 0.7 K/uL (0.7-4.9); Hematocrit 39.4 % (36.0-45.0); Lymphocytes % 22.3 % (15.3-44.8); MCV 93.4 fL (80-100); MPV 6.6 fL (7.6-11.3); RBC Red Blood Cell Count 4.22 M/uL (3.86-4.86)
[2022-01-05 05:51] LABS: Magnesium 2.1 mg/dL (1.8-2.4); Potassium 3.8 mmol/L (3.5-5.1); Thyroid Stimulating Hormone 0.42 uIU/mL (0.360-3.740)
[2022-01-05] MEDS: ENOXAPARIN 40 MG/0.4 ML SQ SCH (08:34)
[2022-01-05] MEDS: CEFTRIAXONE 1,000 MG in NA CHLORIDE 0.9% 50 ML IVPB SCH (08:35)
[2022-01-05] MEDS ORDERED: POTASSIUM CL SA 10 MEQ TAB PO ONE (09:00)
[2022-01-05 13:16] VITALS: BP 125/85; TEMP 97.2
--- NOTE | 2022-01-05 13:40 | P.DS ---
Admission Date: 01/04/22 Discharge Date: 01/05/22 Disposition: ROUTINE DISCHARGE Discharge Condition: FAIR Reason for Admission: SBO/Crohns - Problems (1) Crohns disease Status: Acute Qualifiers: Gastrointestinal tract location: small intestine Digestive disease complication type: with intestinal obstruction Qualified Code(s): K50.012 - Crohn's disease of small intestine with intestinal obstruction (2) SBO (small bowel obstruction) Status: Acute Brief History of Present Illness: Patient is a 51-year-old female with history of Crohn's disease multiple SBOs secondary to adhesions who presented to the ED with complaints of severe abdominal pain. She denied overt episode of nausea, fever, chills. She reported no bowel movement for 1 day. Her labs are unremarkable. CT abdomen pelvis showed " previous bowel resection/anastomosis with mildly dilated small bowel loops, ileus versus early partial small bowel obstruction. Wall thickening in the distal gastric body versus artifact of incomplete distention." She was started on rocephin and flagyl in ED (has cipro allergy) and given dilaudid which improved her pain. She was admitted for further evaluation and treatment. Hospital Course: Patient admitted to the medical floor and treated with supportive measures including IV fluids. Also treated with an IV antibiotics and IV steroid for Crohn's disease flare. She clinically improved with treatment. She had several bowel movements some of them with diarrhea and later tolerated diet advancement. Bowel obstruction is resolved. Patient is deemed stable for discharge. She is prescribed a short course prednisone therapy and antibiotics for possible infectious colitis. Vital Signs/Physical Exam: Temp Pulse Resp BP Pulse Ox 97.2 F 61 15 125/85 93 01/05/22 12:00 01/05/22 12:00 01/05/22 12:00 01/05/22 12:01/05/22 12:00 General: Alert, In no apparent distress, Oriented x3 HEENT: Mucous membr. moist/pink Neck: JVD not distended Respiratory: Clear to auscultation bilaterally, Normal air movement Cardiovascular: No edema, Regular rate/rhythm, Normal S1 S2 Gastrointestinal: Soft and benign, Non-distended, No tenderness Musculoskeletal: No swelling Integumentary: No rashes Laboratory Data at Discharge: WBC 3.10 K/uL (4.3-10.9) L D 01/05/22 05:16 Hgb 13.1 g/dL (12.0-15.0) 01/05/22 05:16 Hct 39.4 % (36.0-45.0) 01/05/22 05:16 Plt Count 146 K/uL (152-406) L 01/05/22 05:16 Sodium 142 mmol/L (136-145) 01/05/22 05:16 Potassium 3.8 mmol/L (3.5-5.1) 01/05/22 05:16 BUN 7 mg/dL (7-18) 01/05/22 05:16 Creatinine 0.66 mg/dL (0.55-1.3) 01/05/22 05:16 Glucose 137 mg/dL (74-106) H 01/05/22 05:16 Phosphorus 2.0 mg/dL (2.5-4.9) L 01/05/22 05:16 Magnesium 2.1 mg/dL (1.8-2.4) 01/05/22 05:16 Total Bilirubin 0.2 mg/dL (0.2-1.0) 01/04/22 03:30 AST 17 U/L (15-37) 01/04/22 03:30 ALT 25 U/L (12-78) 01/04/22 03:30 Alkaline Phosphatase 46 U/L (45-117) 01/04/22 03:30 Triglycerides 154 mg/dL (<150) H 01/05/22 05:16 Cholesterol 143 mg/dL (<200) 01/05/22 05:16 HDL Cholesterol 51 mg/dL (40-60) 01/05/22 05:16 Cholesterol/HDL Ratio 2.80 01/05/22 05:16 Lipase 103 U/L (73-393) 01/04/22 03:30 Home Medications: Alfuzosin HCl [Alfuzosin HCl ER] 10 mg PO DAILY 11/13/21 Aspirin 81 mg PO DAILY 11/13/21 Baclofen 20 mg PO QID 11/13/21 Buspirone HCl [Buspar] 10 mg PO QID 11/13/21 Escitalopram Oxalate 10 mg PO DAILY 11/13/21 Estradiol [Estrace] 1 mg PO DAILY 11/13/21 Gabapentin 600 mg PO QID 11/13/21 clonazePAM [Clonazepam] 1 mg PO TID 11/13/21 Diazepam [Valium] 10 mg PO DAILY PRN #14 tablet 11/14/21 Cefpodoxime Proxetil 100 mg PO BID #10 01/05/22 Fluconazole [Diflucan] 200 mg PO DAILY #7 tablet 01/05/22 Hydrocodone 5/APAP 325 [[place] 5/325] 1 tab PO Q6H PRN #15 tab 01/05/22 Ondansetron [Zofran (Odt)*] 4 mg PO Q4HP PRN #20 tab 01/05/22 Pantoprazole [Protonix Tab*] 40 mg PO BID #60 tab 01/05/22 metroNIDAZOLE [Flagyl*] 500 mg PO Q8H #15 tablet 01/05/22 predniSONE [Prednisone*] 20 mg PO DAILY #5 tab 01/05/22 New Medications: Ondansetron [Zofran (Odt)*] 4 mg PO Q4HP PRN #20 tab PRN Reason: Nausea / Vomiting Cefpodoxime Proxetil 100 mg PO BID #10 Fluconazole [Diflucan] 200 mg PO DAILY #7 tablet metroNIDAZOLE [Flagyl*] 500 mg PO Q8H #15 tablet Hydrocodone 5/APAP 325 [[place] 5/325] 1 tab PO Q6H PRN #15 tab PRN Reason: Pain predniSONE [Prednisone*] 20 mg PO DAILY #5 tab Pantoprazole [Protonix Tab*] 40 mg PO BID #60 tab Physician Discharge Instructions: Soft diet and advance as tolerated. Diet: AHA Activity: Ad ankit Followup: Merari Pickett FNP [Primary Care Provider] - 1-2 Weeks (Call to schedule appointment)
== END 2022-01-05 17:09 | disposition home or self-care (01) | DRG 386 ==
LOC: ER 02:00 → ERHOLD 05:37 → 4TH 15:52
PROVIDERS: ADMIT Internal Medicine; ATTEND Internal Medicine
DX: K50.012 Crohn's disease of small intestine with intestinal obstruction (principal); A09 Infectious gastroenteritis and colitis, unspecified; E03.9 Hypothyroidism, unspecified; Z88.1 Allergy status to other antibiotic agents; Z88.8 Allergy status to other drugs, medicaments and biological substances; Z90.49 Acquired absence of other specified parts of digestive tract; Z79.52 Long term (current) use of systemic steroids; Z79.82 Long term (current) use of aspirin; Z79.899 Other long term (current) drug therapy; Z90.710 Acquired absence of both cervix and uterus; Z96.653 Presence of artificial knee joint, bilateral; Z20.822 Contact with and (suspected) exposure to COVID-19
CPT/HCPCS: 36415; 74177; 80048; 80053; 80061; 81001; 81003; 83690; 83735; 84100; 84443; 85025; 87811; 99285; J1170; J1650; J1720; J2405; J2920; J3360; J7030; Q9967

== ENCOUNTER 2025-01-30 03:23 | Inpatient (IN) | payer OTHER ==
[2025-01-30] MEDS ORDERED: HYDROMORPHONE HCL 0.5 MG/0.5 ML INJ ONE (03:59)
[2025-01-30] MEDS ORDERED: ONDANSETRON 4 MG/2 ML VIAL ONE ×2 (03:59→12:08)
[2025-01-30 04:26] LABS: Absolute Lymphocytes (CBC) 1.3 K/uL (0.7-4.9); Hematocrit 40.8 % (36.0-45.0); Hemoglobin 13.6 g/dL (12.0-15.0); MCH 30.6 pg (27.0-35.0); MCHC 33.4 g/dL (32.0-36.0); MCV 91.5 fL (80-100); MPV 6.1 fL (7.6-11.3); Nucleated RBC Absolute Count 0.0 (0-0); Nucleated Red Blood Cells % 0.0 % (0-0); RBC Red Blood Cell Count 4.46 M/uL (3.86-4.86); White Blood Count 9.80 thou/uL (4.3-10.9)
[2025-01-30 04:43] LABS: ALT/SGPT 26.0 U/L (13-56); AST/SGOT 15.0 U/L (15-37); Albumin 3.8 g/dL (3.4-5.0); Albumin/Globulin Ratio 1.1 (1.1-1.8); Alkaline Phosphatase 66.0 U/L (45-117); Anion Gap 6.0 mEq/L (5.0-15.0); BUN Blood Urea Nitrogen 16.0 mg/dL (7-18); Globulin 3.6 g/dL (2.3-3.5); Glucose Level 99.0 mg/dL (74-106); Lipase 27.0 U/L (13-75); Potassium 4.0 mEq/L (3.5-5.1)
--- NOTE | 2025-01-30 06:34 | RAD REPORT ---
Procedure description: CT ABDOMEN PELVIS WITH IV CONTRAST CLINICAL INDICATION: ABD PAIN TECHNIQUE: Axial imaging obtained through the abdomen and pelvis. Sagittal and coronal reconstruction s obtained. CONTRAST: Nonionic IV contrast. See hospital EMR for dose. COMPARISON: August 17, 2022 FINDINGS: CT abdomen/pelvis: Opacity at the lung bases most consistent with atelectatic change. No pleural or p ericardial effusions and the heart size is normal. Mild thickening of the distal esophagus suggesting esophagitis. The gallbladder has been removed. There is interval development of bile duct dilatation. The common b ile duct measures 13 mm and intrahepatic duct dilatation is also present. No obvious filling defect is present. No focal liver lesion. The spleen, adrenal glands and pancreas appear normal. No acute renal pathology. The aorta is mildly atherosclerotic and normal size without dissection. Previous bowel resections are noted. Dilated loops of small bowel are present with air-fluid levels. Small bowel measures up to approximately 3.1 cm. There appears to be thickening of loops of small intestine in the right lower abdomen best seen on axial image 38 through 42 of series 2 1 per At least moderate constipation of the colon without evidence of colitis. No free air or free fluid. There is a spinal catheter implant in the anterior right abdominal wall. The uterus is absent. The ovaries are absent or atrophic. The bladder has a normal appearance. IMPRESSION: 1: Constipation. 2: Cholecystectomy, hysterectomy and spinal catheter pain pump. Previous bowel resections. 3: Interval development of biliary dilatation. 4: Small bowel distention with a transition point likely in the lower right abdomen where there appea rs to be some thickening of small intestine. Consistent with small bowel obstruction per RADIATION DOSE REDUCTION: This exam was performed according to our departmental dose-optimization pro gram which includes automated exposure control, adjustment of the mA and/or kV according to patient size and/or use of iterative reconstruction technique. Electronically signed by: James Blum MD 01/30/2025 06:29 AM CDT RP Due to temporary technical issues with the PACS/[employer] reporting system, reports are being demetrius d by the in-house radiologist without review as a courtesy to ensure prompt reporting the interpreting radiologist is fully responsible for the content of the report. Transcribed Date/Time: 01/30/2025 6:33 AM
--- NOTE | 2025-01-30 06:46 | ER ---
Nurse's Notes [facility] Name: Angela Rodriguez Age: 54 yrs Sex: Female : 1970 Arrival Date: 01/30/2025 Time: 03:23 Bed 6 Private MD: Diagnosis: Crohn's disease of small intestine with intestinal obstruction Presentation: 01/30 03:39 Chief complaint: Patient states: ABDOMINAL PAIN, NAUSEA/VOMITING THAT BEGAN AT 8PM. br2 Coronavirus screen: Client denies travel out of the [place] in the last 14 days. Ebola Screen: Patient denies exposure to infectious person. Initial Sepsis Screen: Does the patient meet any 2 criteria? No. Patient's initial sepsis screen is negative. Does the patient have a suspected source of infection? No. Patient's initial sepsis screen is negative. Risk Assessment: Do you want to hurt yourself or someone else? Patient reports no desire to harm self or others. Onset of symptoms was January 29, 2025 at 20:00. 03:39 Method Of Arrival: Wheelchair br2 03:39 Acuity: LIZZY 3 br2 Triage Assessment: 03:41 General: Appears uncomfortable, Behavior is cooperative, crying, restless. Pain: br2 Complains of pain in right upper quadrant, left upper quadrant, right lower quadrant and left lower quadrant Pain currently is 10 out of 10 on a pain scale. GI: Reports lower abdominal pain, upper abdominal pain, nausea, vomiting, since 8PM YESTERDAY. 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 - Infectious Disease History:: Denies. - Social history:: Smoking status: Patient reports the use of cigarette tobacco products, smokes one-half pack cigarettes per day, Patient/guardian denies using alcohol, street drugs. Screenin:06 [facility] ED Fall Risk Assessment (Adult) History of falling in the last 3 months, mf3 including since admission No falls in past 3 months (0 pts) Confusion or Disorientation No (0 pts) Intoxicated or Sedated No (0 pts) Impaired Gait No (0 pts) Mobility Assist Device Used No (0 pt) Altered Elimination No (0 pt) Score/Fall Risk Level 0 - 2 = Low Risk. Abuse screen: Denies threats or abuse. Denies injuries from another. Nutritional screening: No deficits noted. Tuberculosis screening: No symptoms or risk factors identified. Assessment: 04:06 General: Appears in no apparent distress. uncomfortable, Behavior is calm, cooperative, mf3 appropriate for age. Pain: Complains of pain in abdomen Pain currently is 10 out of 10 on a pain scale. Neuro: Level of Consciousness is awake, alert, obeys commands, Oriented to person, place, time, situation, Appropriate for age. Cardiovascular: Capillary refill < 3 seconds. Respiratory: Airway is patent Trachea midline Respiratory effort is even, unlabored, Respiratory pattern is regular, symmetrical. GI: Bowel sounds present X 4 quads. Abdomen is tender to palpation. 05:00 Reassessment: Patient and/or family updated on plan of care and expected duration. Pain mf3 level reassessed. Patient is alert, oriented x 3, equal unlabored respirations, skin warm/dry/pink. Patient denies pain at this time. 06:58 Reassessment: Patient and/or family updated on plan of care and expected duration. Pain mf3 level reassessed. Patient is alert, oriented x 3, equal unlabored respirations, skin warm/dry/pink. pt c/o pain again. md notified. Vital Signs: 03:39 BP 113 / 100; Pulse 89; Resp 18; Temp 97.4; Pulse Ox 96% on R/A; Weight 68.04 kg; br2 Height 5 ft. 2 in. ; Pain 10/10; 07:11 BP 117 / 81; Pulse 71; Resp 14; Pulse Ox 95% on R/A; nh2 07:35 BP 108 / 79; Pulse 69; Resp 16 S; Temp 97.7(O); Pulse Ox 99% on R/A; nh2 03:39 Body Mass Index 27.44 (68.04 kg, 157.48 cm) br2 03:39 Pain Scale: Adult br2 [place] Coma Score: 04:06 Eye Response: spontaneous(4). Motor Response: obeys commands(6). Verbal Response: mf3 oriented(5). Total: 15. ED Course: 03:24 Patient arrived in ED. mr 03:33 Gael Guevara DO is Attending Physician. tt7 03:41 Triage completed. br2 04:06 Emilia Ledesma, RN is Primary Nurse. mf3 04:06 CBC with Diff Sent. mf3 04:06 CMP Sent. mf3 04:06 Lipase Sent. mf3 04:06 Inserted saline lock: 20 gauge in right forearm, using aseptic technique. Blood mf3 collected. Flushed with 10 mL NS. 04:06 Patient has correct armband on for positive identification. Bed in low position. Call mf3 light in reach. Side rails up X 1. Side rails up X2. Provided Education on: pt educate don POC. 05:29 CT Abd/Pelvis - IV Contrast Only In Process Unspecified. EDMS 06:44 Rosendo Mcdonough MD is Hospitalizing Provider. tt7 07:05 Arm band placed on right wrist. nh2 08:11 Oxygen administration via nasal cannula \T\ 3L/min. nh2 14:42 No provider procedures requiring assistance completed. Patient admitted, IV remains in nh2 place. Administered Medications: 04:09 Drug: Ondansetron IVP 4 mg IVP once; over 2 minutes Route: IVP; Site: right upper arm; mf3 04:09 Drug: HYDROmorphone IVP 0.5 mg IVP once Route: IVP; Site: right upper arm; mf3 07:33 Drug: HYDROmorphone IVP 0.5 mg IVP once Route: IVP; Site: right antecubital; nh2 Medication: 04:06 VIS not applicable for this client. mf3 Outcome: 06:45 Decision to Hospitalize by Provider. tt7 14:42 Admitted to Tele accompanied by tech, via wheelchair, room 205, with oxygen, with nh2 chart, 14:42 Condition: stable nh2 14:42 Instructed on the need for admit, Demonstrated understanding of instructions, 14:43 Patient left the ED. nh2 Signatures: Dispatcher [employer] EDVT Roopa Medeiros, Reg Reg JeromeMarilu RN RN br2 Jermaine Cornelius Jr, RN RN nh2 Emilia Ledesma RN RN 3 Gael Guevara, DO DO tt7 Corrections: (The following items were deleted from the chart) 07:35 07:11 BP 117 / 81; Pulse 71bpm; Resp 14bpm; Pulse Ox 90% RA; nh2 nh2 14:42 14:42 Admitted to Tele accompanied by tech, nh2 nh2
--- NOTE | 2025-01-30 06:46 | EDPHYS ---
Physician Documentation [facility] Name: Angela Rodriguez Age: 54 yrs Sex: Female : 1970 Arrival Date: 01/30/2025 Time: 03:23 Bed 6 Private MD: ED Physician Gael Guevara HPI: 01/30 07:10 This 54 yrs old Female presents to ER via Wheelchair with complaints of Abdominal Pain. tt7 07:10 Symptoms started at 8 PM, abdominal pain is generalized diffuse achy pain, associated tt7 with nausea, no vomiting. Patient reports history of Crohn's disease with multiple past small bowel obstructions, she feels like she might be having a new small bowel obstruction. She says she is not been able to have a bowel movement in several days but did pass small amount of flatus earlier. She denies fever, chest pain, shortness of breath. 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 - Infectious Disease History:: Denies. - Social history:: Smoking status: Patient reports the use of cigarette tobacco products, smokes one-half pack cigarettes per day, Patient/guardian denies using alcohol, street drugs. ROS: 07:11 Constitutional: negative for fever. Cardiovascular: negative for chest pain. tt7 Respiratory: negative for shortness of breath. MS/Extremity: negative for injury and deformity. Skin: negative for rash. Neuro: negative for focal weakness. 07:11 Abdomen/GI: Positive for abdominal pain, nausea, Negative for vomiting, Exam: 07:11 Constitutional: vital signs reviewed, well appearing. Head/Face: normocephalic, tt7 atraumatic. Eyes: no conjunctival injection, anicteric sclerae. ENT: mucus membranes moist. Neck: trachea midline, no JVD, no meningismus. Chest/axilla: normal chest wall appearance and motion, nontender, no crepitus. Cardiovascular: regular rate and rhythm, no murmurs, no rubs, no lower extremity edema. Respiratory: normal respiratory effort, no accessory muscle use, lungs CTAB. Abdomen/GI: Soft, slightly distended, moderate diffuse abdominal tenderness without guarding or rebound, hypoactive bowel sounds 07:14 Skin: warm, dry, intact, normal turgor, normal color, no rash. MS/ Extremity: normal tt7 ROM of extremities, no gross deformities. Neuro: alert and oriented with appropriate mental status, normal speech, follows commands, no focal neurologic deficits. Psych: appropriate mood and affect. Vital Signs: 03:39 BP 113 / 100; Pulse 89; Resp 18; Temp 97.4; Pulse Ox 96% on R/A; Weight 68.04 kg; br2 Height 5 ft. 2 in. ; Pain 10/10; 07:11 BP 117 / 81; Pulse 71; Resp 14; Pulse Ox 95% on R/A; nh2 07:35 BP 108 / 79; Pulse 69; Resp 16 S; Temp 97.7(O); Pulse Ox 99% on R/A; nh2 03:39 Body Mass Index 27.44 (68.04 kg, 157.48 cm) br2 03:39 Pain Scale: Adult br2 Catrachita Coma Score: 04:06 Eye Response: spontaneous(4). Motor Response: obeys commands(6). Verbal Response: mf3 oriented(5). Total: 15. MDM: 03:33 Medical Screening Exam initiated tt7 07:15 Differential Diagnosis Small bowel obstruction, pancreatitis, diverticulitis, Crohn's tt7 disease exacerbation, appendicitis. Data reviewed: vital signs, nurses notes, lab test result(s), radiologic studies. Care significantly affected by the following chronic conditions: Crohn's disease. Counseling: I had a detailed discussion with the patient and/or guardian regarding the historical points, exam findings, and any diagnostic results supporting the discharge/admit diagnosis, lab results, radiology results, the need for further work-up and treatment in the hospital. ED course: 54-year-old female with abdominal pain and nausea, history of multiple small bowel obstructions due to Crohn's disease, her vital signs are stable, abdominal exam positive for tenderness but no peritoneal signs, workup overall demonstrates no significant findings on laboratory studies, CT imaging demonstrates evidence of small bowel obstruction, patient given antiemetic and parenteral opioids, made n.p.o., I discussed the patient's clinical presentation, exam findings, and CT imaging findings with general surgeon Dr. Shelton, I discussed the patient's clinical presentation, vital signs, exam findings, laboratory studies, and CT findings with hospitalist SOHAN Coates who accepts patient for admission. 01/30 03:51 Order name: CBC with Diff; Complete Time: 04:43 tt7 01/30 03:51 Order name: CMP; Complete Time: 04:43 tt7 01/30 03:51 Order name: Lipase; Complete Time: 04:43 tt7 01/30 07:23 Order name: Basic Metabolic Panel EDMS 01/30 07:23 Order name: Basic Metabolic Panel EDMS 01/30 07:23 Order name: Basic Metabolic Panel EDMS 01/30 07:23 Order name: Basic Metabolic Panel EDMS 01/30 07:23 Order name: Basic Metabolic Panel EDMS 01/30 07:23 Order name: CBC with Automated Diff EDMS 01/30 07:23 Order name: CBC with Automated Diff EDMS 01/30 07:23 Order name: CBC with Automated Diff EDMS 01/30 07:23 Order name: CBC with Automated Diff EDMS 01/30 07:23 Order name: CBC with Automated Diff EDMS 01/30 03:51 Order name: CT Abd/Pelvis - IV Contrast Only; Complete Time: 06:36 tt7 01/30 07:23 Order name: Abdomen 1 View (KUB) EDMS 01/30 07:23 Order name: Abdomen 1 View (KUB) EDMS 01/30 03:51 Order name: IV Saline Lock; Complete Time: 04:06 tt7 01/30 03:51 Order name: Labs collected and sent; Complete Time: 04:06 tt7 01/30 06:37 Order name: NPO; Complete Time: 06:57 tt7 Administered Medications: 04:09 Drug: Ondansetron IVP 4 mg IVP once; over 2 minutes Route: IVP; Site: right upper arm; mf3 04:09 Drug: HYDROmorphone IVP 0.5 mg IVP once Route: IVP; Site: right upper arm; mf3 07:33 Drug: HYDROmorphone IVP 0.5 mg IVP once Route: IVP; Site: right antecubital; nh2 Disposition: 07:17 Co-signature as Attending Physician, Gael Guevara DO. tt7 Disposition Summary: 01/30/25 06:45 Hospitalization Ordered Notes: Hospitalization Status: Inpatient Admission tt7 Provider: Rosendo Mcdonough tt7 Condition: Stable tt7 Problem: an acute exacerbation tt7 Symptoms: are unchanged tt7 Bed/Room Type: Standard tt7 Location: Telemetry/MedSurg (observation)(01/30/25 13:38) 6 Room Assignment: 405(01/30/25 13:38) 6 Diagnosis - Crohn's disease of small intestine with intestinal obstruction tt7 Forms: - Medication Reconciliation Form tt7 - SBAR form tt7 - Leadership Thank You Letter tt7 Signatures: Dispatcher [employer] EDMS Karissa Esquivel, RN RN Jaxon Riggs, PRINCIPAL TECHNOLOGIST-C PRINCIPAL TECHNOLOGIST-Cla1 Christie Matias RN RN kb3 Barbara Vogt 6 Marilu Abrams RN RN br2 Jermaine Cornelius Jr, RN RN [facility] Emilia Ledesma RN ANANYA 3 Gael Guevara DO DO tt7 Corrections: (The following items were deleted from the chart) 03:54 03:54 Abdomen Pelvis W Con+CT.RAD.BRZ ordered. EDOH EDMS 07:11 07:10 . tt7 tt7 07:34 06:45 tt7 bc6 08:10 06:45 Telemetry/MedSurg (Inpatient) tt7 dw 08:10 07:34 411 bc6 dw 08:11 08:10 [facility] ER HOLD dw bc6 08:11 08:10 dw bc6 11:34 08:11 bc6 kb3 13:38 08:11 [facility] ER HOLD bc6 bc6 13:38 11:34 ERHOLD- kb3 bc6
--- NOTE | 2025-01-30 07:40 | P.HP ---
Certification for Inpatient Patient admitted to: Inpatient With expected LOS: >2 Midnights Patient will require the following post-hospital care: None Practitioner: I am a practitioner with admitting privileges, knowledge of patient current condition, hospital course, and medical plan of care. Services: Services provided to patient in accordance with Admission requirements found in Title 42 Section 412.3 of the Code of Federal Regulations <Jaxon Selby - Last Filed: 01/30/25 07:37> Patient History Date of Service: 01/30/25 History of Present Illness: 54-year-old female with history of Crohn's, chronic pain, anxiety/depression, hypothyroidism presents to the emergency department chief complaint of abdominal pain. She has a history of Crohn's requiring resections in the past, last bowel resection was around 5 years ago. She had a recent colonoscopy about 2 weeks ago with her GI doctor who said there was a small stricture and had referred her to follow-up with general surgery at some point. Patient reports that she started having abdominal pain yesterday, she did have a normal bowel movement yesterday and has not had any vomiting but she is nauseous. She reports that the pain got worse this morning and felt reason she came to the emergency department. Patient was evaluated here in the emergency department her labs are significant for a normal white blood cell count bicarb of 33 CT of the abdomen pelvis was performed which showed small bowel distention with a transition point likely in the lower right abdomen where there appears to be some thickening of the small intestine consistent with a small bowel obstruction. Additionally noted the common bile duct measures 13 mm and intrahepatic duct dilatation is also present with no obvious filling defect present. LFTs, T. bili are normal. ED physician discussed case with general surgery who agrees to consult, GI is also on-call at this time at facility. Patient be admitted for further evaluation and management of SBO, Crohn's. - Past Medical/Surgical History Diabetic: No -: Crohns -: Endometriosis -: Anxiety/depression -: Chronic pain with pain pump in place -: Titanium plate on right wrist -: Bowel resection x 2 -: Hysterectomy -: Bilateral knee replacements Psychosocial/ Personal History: Patient lives at home with family. - Social History Alcohol use: No CD- Drugs: No Caffeine use: Yes <Jaxon Selby - Last Filed: 01/30/25 07:37> Date of Service: 01/30/25 <Rosendo Mcdonough Angelic - Last Filed: 02/03/25 12:36> Allergies promethazine [From Phenergan] Allergy (Verified 11/22/17 20:55) Twitching ciprofloxacin Adverse Reaction (Verified 11/22/17 20:55) Itching Home Medications: Escitalopram Oxalate 20 mg PO DAILY 11/13/21 Estradiol [Estrace] 0.5 mg PO DAILY 11/13/21 Gabapentin 600 mg PO BID 11/13/21 clonazePAM [Clonazepam] 1 mg PO TID 11/13/21 Pantoprazole [Protonix Tab*] 40 mg PO BID #60 tab 01/05/22 Acyclovir 400 mg PO BID 01/30/25 Alfuzosin HCl [Alfuzosin HCl ER] 10 mg PO DAILY 01/30/25 Montelukast [Singulair*] 10 mg PO DAILY 01/30/25 Upadacitinib [Rinvoq] 30 mg PO DAILY 01/30/25 ALPRAZolam [Xanax] 0.5 mg PO BID PRN #30 tab 01/31/25 Amox/Clavulanate [Augmentin 875-125 Tab] 1 each PO BID #14 tab 01/31/25 Hydrocodone 10/APAP 325 [[place] 10/325] 1 tab PO Q8H PRN #30 tab 01/31/25 predniSONE [Deltasone] 20 mg PO DAILY #5 tab 01/31/25 Review of Systems 10-point ROS is otherwise unremarkable Gastrointestinal: Nausea, Abdominal Pain <Jaxon Selby - Last Filed: 01/30/25 07:37> Physical Examination - Physical Exam General: Alert, In no apparent distress, Oriented x3 HEENT: Atraumatic, PERRLA, EOMI Neck: Supple, 2+ carotid pulse no bruit, No LAD Respiratory: Clear to auscultation bilaterally, Normal air movement Cardiovascular: Regular rate/rhythm, Normal S1 S2 Gastrointestinal: Normal bowel sounds, Tenderness (Mild generalized abdominal tenderness) Musculoskeletal: No tenderness Integumentary: No rashes Neurological: Normal gait, Normal speech, Normal strength at 5/5 x4 extr, Normal affect - Studies Laboratory Data (last 24 hrs) 01/30/25 01/30/25 04:20 04:20 WBC 9.80 Hgb 13.6 Hct 40.8 Plt Count 390 Sodium 138 Potassium 4.0 BUN 16 Creatinine 0.88 Glucose 99 Total Bilirubin 0.4 AST 15 ALT 26 Alkaline Phosphatase 66 Lipase 27 <Jaxon Selby - Last Filed: 01/30/25 07:37> Assessment and Plan - Plan Assessment: Small bowel obstruction-history of Crohn's Biliary ductal dilatation-history of cholecystectomy Chronic pain Anxiety/depression Hypothyroidism Plan: Small bowel obstruction-history of Crohn's Biliary ductal dilatation-history of cholecystectomy N.p.o., empiric antibiotics IV fluids, as needed pain medications and antiemetics Reports colonoscopy 2 weeks ago with area of possible stricture per her GI doctor-was planning on outpatient follow-up General Surgery and GI consultations in place LFTs within normal limits Monitor chemistry/LFT daily Repeat KUB in the morning Chronic pain Anxiety/depression Hypothyroidism Continue home medications when verified DVT PPX: SCD Code status: Full code Discharge Plan: Home Plan to discharge in: Greater than 2 days - Advance Directives Does patient have a Living Will: No Does patient have a Durable POA for Healthcare: No - Code Status/Comfort Care Code Status Assessed: Yes (Full code) Critical Care: No Time Spent Managing Pts Care (In Minutes): 70 <Jaxon Selby - Last Filed: 01/30/25 07:37> Date of Service: 01/30/25 Patient was seen and examined. Events of the last 24 hours have been noted. Spoke with with SOHAN regarding patient's clinical picture after evaluating and examining the patient independently. I performed a substantial part of the MDM during this patient's care today. I personally made or approved the documented management plan and acknowledge its risk of complications. I agree with the findings and documentation provided in the SOHAN's notes. <Rosendo Mcdonough - Last Filed: 02/03/25 12:36>
[2025-01-30] MEDS: PIPER TAZO 3.375 GM in NA CHLORIDE 0.9% 100 ML IV SCH (10:00)
[2025-01-30] MEDS: D5 0.45 NS 1,000 ML IV SCH (10:00)
[2025-01-30] MEDS ORDERED: D5 0.45 NS 1,000 ML IV ONE (10:02)
[2025-01-30] MEDS ORDERED: NA CHLORIDE 0.9% 100 ML ONE (10:02)
[2025-01-30] MEDS ORDERED: PIPERACIL/TAZO 3.375 GM VIAL IV ONE (10:02)
[2025-01-30 10:44] VITALS: O2SAT 98; BMI 27.4
[2025-01-30] MEDS: FLU (Fluarix) 25-26 (6MOS UP)/PF 45 MCG/0.5 ML Syringe IM ONE (11:15)
[2025-01-30] MEDS ORDERED: HYDROMORPHONE HCL 1 MG/ML INJ ONE (12:08)
[2025-01-30] MEDS ORDERED: FLU (Fluarix) 25-26 (6MOS UP)/PF 45 MCG/0.5 ML Syringe IM ONE (12:09)
[2025-01-30] MEDS: HYDROMORPHONE HCL 1 MG/ML INJ IV PRN (12:30)
[2025-01-30] MEDS: ONDANSETRON 4 MG/2 ML VIAL IV PRN (12:31)
[2025-01-30] MEDS: PANTOPRAZOLE 40MG TABLET PO SCH (16:55)
[2025-01-30] MEDS: FLUCONAZOLE 100 MG TAB PO ONE (16:55)
[2025-01-30] MEDS: clonazePAM 1 MG TAB PO SCH (17:25)
[2025-01-30] MEDS: GABAPENTIN 300 MG CAP PO SCH (20:17)
[2025-01-30] MEDS: ACYCLOVIR 400 MG TABLET PO SCH (20:17)
[2025-01-30] MEDS ORDERED: HOME MED 1 EA UNK (Gabapentin [Gabapentin] 600 MG Tablet) PO SCH (21:00)
[2025-01-30] MEDS ORDERED: clonazePAM 1 MG TAB PO SCH (21:00)
[2025-01-31 07:24] LABS: Absolute Lymphocytes (CBC) 1.5 K/uL (0.7-4.9); Hematocrit 36.0 % (36.0-45.0); Hemoglobin 12.2 g/dL (12.0-15.0); MCH 31.3 pg (27.0-35.0); MCHC 33.8 g/dL (32.0-36.0); MCV 92.6 fL (80-100); MPV 6.1 fL (7.6-11.3); Nucleated RBC Absolute Count 0.0 (0-0); Nucleated Red Blood Cells % 0.0 % (0-0); RBC Red Blood Cell Count 3.89 M/uL (3.86-4.86); White Blood Count 3.80 thou/uL (4.3-10.9)
[2025-01-31 07:45] LABS: ALT/SGPT 20.0 U/L (13-56); AST/SGOT 14.0 U/L (15-37); Albumin 2.8 g/dL (3.4-5.0); Albumin/Globulin Ratio 1.0 (1.1-1.8); Alkaline Phosphatase 50.0 U/L (45-117); Anion Gap 4.6 mEq/L (5.0-15.0); BUN Blood Urea Nitrogen 12.0 mg/dL (7-18); Globulin 2.7 g/dL (2.3-3.5); Glucose Level 122.0 mg/dL (74-106); Potassium 3.6 mEq/L (3.5-5.1)
[2025-01-31] MEDS: POTASSIUM CL SA 10 MEQ TAB PO ONE (08:38)
[2025-01-31] MEDS: FLUCONAZOLE 100 MG TAB PO SCH (08:38)
[2025-01-31] MEDS: MONTELUKAST 10 MG TAB PO SCH (08:38)
[2025-01-31] MEDS: ESCITALOPRAM 20 MG TAB PO SCH (08:40)
[2025-01-31] MEDS: ALFUZOSIN HCL 10 MG PO SCH (08:40)
[2025-01-31] MEDS: ESTRADIOL 1 MG PO SCH (08:40)
[2025-01-31] MEDS: UPADACITINIB PO SCH (08:41)
--- NOTE | 2025-01-31 08:49 | RAD REPORT ---
EXAM: XR Abdomen 1 View (KUB) HISTORY: [facility] sbo COMPARISON: None FINDINGS: Single view of the abdomen shows a nonspecific, nonobstructive bowel gas pattern. Right low er abdomen pain pump in place. Status post cholecystectomy. No suspicious calcifications are seen. The bones are unremarkable. IMPRESSION: Nonobstructive bowel gas pattern.
[2025-01-31 12:07] VITALS: TEMP 97.7
[2025-01-31] MEDS: ALPRAZOLAM 0.5 MG TABLET PO ONE (14:38)
[2025-01-31] MEDS: METHYLPREDNISOLONE 125 MG INJ IV ONE (14:38)
--- NOTE | 2025-01-31 15:19 | P.PN ---
Date of Service: 01/31/25 Subjective: Had a bowel movement last night Still having significant abdominal pain today Passing gas No other acute events overnight ROS: 10 point ROS as noted above, otherwise negative Physical exam GEN: Alert, oriented, NAD HEENT: Normal conjunctiva, sclera anicteric CV: Regular rate and rhythm, no edema Pulm: Nonlabored respirations on room air ABD: Soft, nondistended, mild generalized abdominal tenderness MSK: No joint tenderness Integumentary: No rashes Neuro: Normal speech, normal affect Vitals reviewed Assessment: Small bowel obstruction-history of Crohn's Biliary ductal dilatation-history of cholecystectomy Chronic pain Anxiety/depression Hypothyroidism Plan: Small bowel obstruction-history of Crohn's Biliary ductal dilatation-history of cholecystectomy N.p.o., empiric antibiotics IV fluids, as needed pain medications and antiemetics Reports colonoscopy 2 weeks ago with area of possible stricture per her GI doctor-was planning on outpatient follow-up General Surgery and GI consultations in place LFTs within normal limits Monitor chemistry/LFT daily Repeat KUB with nonobstructive gas pattern Had a bowel movement evening of 01/30 Chronic pain Anxiety/depression Hypothyroidism Home medications continued DVT PPX: SCD Code status: Full code Discharge Plan: Home Plan to discharge in: Greater than 2 days Time Spent Managing Pts Care (In Minutes): 35 <Jaxon Selby - Last Filed: 01/31/25 15:17> Patient was seen and examined. Events of the last 24 hours have been noted. Spoke with with SOHAN regarding patient's clinical picture after evaluating and examining the patient independently. I performed a substantial part of the MDM during this patient's care today. I personally made or approved the documented management plan and acknowledge its risk of complications. I agree with the findings and documentation provided in the SOHAN's notes. <Rosendo Mcdonough - Last Filed: 02/03/25 12:34>
[2025-01-31 16:29] VITALS: BP 126/70
[2025-01-31] MEDS: METHYLPREDNISOLONE 125 MG INJ IV SCH (17:11)
--- NOTE | 2025-02-01 06:58 | P.DS ---
Admission Date: 01/30/25 Discharge Date: 01/31/25 Brief History of Present Illness: 54-year-old female with history of Crohn's, chronic pain, anxiety/depression, hypothyroidism presents to the emergency department chief complaint of abdominal pain. She has a history of Crohn's requiring resections in the past, last bowel resection was around 5 years ago. She had a recent colonoscopy about 2 weeks ago with her GI doctor who said there was a small stricture and had referred her to follow-up with general surgery at some point. Patient reports that she started having abdominal pain yesterday, she did have a normal bowel movement yesterday and has not had any vomiting but she is nauseous. She reports that the pain got worse this morning and felt reason she came to the emergency department. Patient was evaluated here in the emergency department her labs are significant for a normal white blood cell count bicarb of 33 CT of the abdomen pelvis was performed which showed small bowel distention with a transition point likely in the lower right abdomen where there appears to be some thickening of the small intestine consistent with a small bowel obstruction. Additionally noted the common bile duct measures 13 mm and intrahepatic duct dilatation is also present with no obvious filling defect pre sent. LFTs, T. bili are normal. ED physician discussed case with general surgery who agrees to consult, GI is also on-call at this time at facility. Patient be admitted for further evaluation and management of SBO, Crohn's. Hospital Course: Assessment: Small bowel obstruction-history of Crohn's Biliary ductal dilatation-history of cholecystectomy Chronic pain Anxiety/depression Hypothyroidism Patient was admitted for small bowel obstruction, her symptoms improved rapidly. She had a bowel movement overnight and is feeling much better today. She is stable for discharge outpatient follow-up with her PCP and general surgery in 1 to 2 weeks. Prescriptions for antibiotics, pain medication and short course of oral steroids sent to patient's pharmacy. <Jaxon Selby - Last Filed: 02/01/25 06:56> Admission Date: 01/30/25 Discharge Date: 01/31/25 Hospital Course: Patient was seen and examined. Events of the last 24 hours have been noted. Spoke with with SOHAN regarding patient's clinical picture after evaluating and examining the patient independently. I performed a substantial part of the MDM during this patient's care today. I personally made or approved the documented management plan and acknowledge its risk of complications. I agree with the findings and documentation provided in the SOHAN's notes. <Rosendo Mcdonough - Last Filed: 02/03/25 12:33> Disposition: ROUTINE DISCHARGE Discharge Condition: GOOD Vital Signs/Physical Exam: Temp Pulse Resp BP Pulse Ox 97.7 F 49 L 16 126/70 93 01/31/25 16:00 01/31/25 16:00 01/31/25 16:00 01/31/25 16:00 01/31/25 16:00 General: Alert, In no apparent distress, Oriented x3 HEENT: Atraumatic, PERRLA Neck: Supple, JVD not distended Respiratory: Clear to auscultation bilaterally, Normal air movement Cardiovascular: Regular rate/rhythm, Normal S1 S2 Gastrointestinal: Normal bowel sounds, No tenderness Musculoskeletal: No tenderness Integumentary: No rashes Neurological: Normal speech, Normal tone, Normal affect Laboratory Data at Discharge: WBC 3.80 thou/uL (4.3-10.9) L 01/31/25 07:00 Hgb 12.2 g/dL (12.0-15.0) D 01/31/25 07:00 Hct 36.0 % (36.0-45.0) 01/31/25 07:00 Plt Count 286 thou/uL (152-406) D 01/31/25 07:00 Sodium 142 mEq/L (136-145) 01/31/25 07:00 Potassium 3.6 mEq/L (3.5-5.1) 01/31/25 07:00 BUN 12 mg/dL (7-18) 01/31/25 07:00 Creatinine 0.92 mg/dL (0.55-1.02) 01/31/25 07:00 Glucose 122 mg/dL (74-106) H 01/31/25 07:00 Total Bilirubin 0.4 mg/dL (0.2-1.0) 01/31/25 07:00 AST 14 U/L (15-37) L 01/31/25 07:00 ALT 20 U/L (13-56) 01/31/25 07:00 Alkaline Phosphatase 50 U/L (45-117) D 01/31/25 07:00 Lipase 27 U/L (13-75) 01/30/25 04:20 <Jaxon Selby - Last Filed: 02/01/25 06:56> Vital Signs/Physical Exam: Temp Pulse Resp BP Pulse Ox 97.7 F 49 L 16 126/70 93 01/31/25 16:00 01/31/25 16:00 01/31/25 16:00 01/31/25 16:00 01/31/25 16:00 Laboratory Data at Discharge: WBC 3.80 thou/uL (4.3-10.9) L 01/31/25 07:00 Hgb 12.2 g/dL (12.0-15.0) D 01/31/25 07:00 Hct 36.0 % (36.0-45.0) 01/31/25 07:00 Plt Count 286 thou/uL (152-406) D 01/31/25 07:00 Sodium 142 mEq/L (136-145) 01/31/25 07:00 Potassium 3.6 mEq/L (3.5-5.1) 01/31/25 07:00 BUN 12 mg/dL (7-18) 01/31/25 07:00 Creatinine 0.92 mg/dL (0.55-1.02) 01/31/25 07:00 Glucose 122 mg/dL (74-106) H 01/31/25 07:00 Total Bilirubin 0.4 mg/dL (0.2-1.0) 01/31/25 07:00 AST 14 U/L (15-37) L 01/31/25 07:00 ALT 20 U/L (13-56) 01/31/25 07:00 Alkaline Phosphatase 50 U/L (45-117) D 01/31/25 07:00 Lipase 27 U/L (13-75) 01/30/25 04:20 <Rosendo Mcdonough - Last Filed: 02/03/25 12:33> Diet: Regular Activity: Fall precautions Time spent managing pt's care (in minutes): 35 <Jaxon Selby - Last Filed: 02/01/25 06:56> <Rosendo Mcdonough - Last Filed: 02/03/25 12:33> Home Medications: Escitalopram Oxalate 20 mg PO DAILY 11/13/21 Estradiol [Estrace] 0.5 mg PO DAILY 11/13/21 Gabapentin 600 mg PO BID 11/13/21 clonazePAM [Clonazepam] 1 mg PO TID 11/13/21 Pantoprazole [Protonix Tab*] 40 mg PO BID #60 tab 01/05/22 Acyclovir 400 mg PO BID 01/30/25 Alfuzosin HCl [Alfuzosin HCl ER] 10 mg PO DAILY 01/30/25 Montelukast [Singulair*] 10 mg PO DAILY 01/30/25 Upadacitinib [Rinvoq] 30 mg PO DAILY 01/30/25 ALPRAZolam [Xanax] 0.5 mg PO BID PRN #30 tab 01/31/25 Amox/Clavulanate [Augmentin 875-125 Tab] 1 each PO BID #14 tab 01/31/25 Hydrocodone 10/APAP 325 [[place] 10/325] 1 tab PO Q8H PRN #30 tab 01/31/25 predniSONE [Deltasone] 20 mg PO DAILY #5 tab 01/31/25 New Medications: Amox/Clavulanate [Augmentin 875-125 Tab] 1 each PO BID #14 tab Hydrocodone 10/APAP 325 [[place] 10/325] 1 tab PO Q8H PRN #30 tab PRN Reason: Pain predniSONE [Deltasone] 20 mg PO DAILY #5 tab ALPRAZolam [Xanax] 0.5 mg PO BID PRN #30 tab PRN Reason: Anxiety Physician Discharge Instructions: -DC IV and DC home -Follow-up with PCP in 1 to 2 weeks -Follow-up with Surgery in 1 to 2 weeks -Please call Dr. Mcdonough at [phone] if any questions regarding hospital stay -Please call nursing station at [phone] if any nursing or medication questions -Return to the emergency room if symptoms worsen Followup: Merari Pickett FNP [Primary Care Provider] -
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
== END 2025-01-31 17:54 | disposition home or self-care (01) | DRG 387 ==
LOC: ER 03:23 → 4TH 07:19 → ERHOLD 08:41 → 4TH 13:43
PROVIDERS: ADMIT Hospitalist; ATTEND Hospitalist
DX: K50.012 Crohn's disease of small intestine with intestinal obstruction (principal); E03.9 Hypothyroidism, unspecified; F31.9 Bipolar disorder, unspecified; F41.9 Anxiety disorder, unspecified; G89.29 Other chronic pain; F17.210 Nicotine dependence, cigarettes, uncomplicated; Z88.1 Allergy status to other antibiotic agents; Z88.8 Allergy status to other drugs, medicaments and biological substances; Z79.52 Long term (current) use of systemic steroids; Z90.49 Acquired absence of other specified parts of digestive tract; Z90.710 Acquired absence of both cervix and uterus; Z96.653 Presence of artificial knee joint, bilateral; Z79.899 Other long term (current) drug therapy; Z23 Encounter for immunization
CPT/HCPCS: 36415; 74018; 74177; 80053; 83690; 85025; 90656; 99285; J1171; J2405; J2543; J2919; J7799; Q9967